=== PATIENT | female | born 1980 | race Caucasian/White ===

== ENCOUNTER 2018-03-13 17:17 | Emergency (ER) | payer MEDICAID, SELFPAY ==
[2018-03-13 17:18] VITALS: BP 146/64; PULSE 102; RESP 26; TEMP 36.2; O2SAT 99; BMI 20.1
--- NOTE | 2018-03-13 17:58 | ED.VISSUMM ---
- ER Visit Summary Date of Service: 03/13/18 Chief Complaint: Anxiety History of Present Illness: The patient is a 38 F who goes to the counseling center and sees Dr. Mario. She reports that she has a history of anxiety. She was on Xanax and Lexapro in the past. States that she has not been on these for approximately 6 months. She is unsure what her dose of Lexapro was. She reports that she is under a great deal of stress. She is buying a house and in a custody [place]. She reports that she began feeling anxious yesterday. Her symptoms consist of chest pain and diarrhea with this. She states that she has had 2 episodes of diarrhea. No blood in her stools or black tarry stools. She denies any shortness of breath or exertional chest pain. Physical Examination: Vitals: Stable. Afebrile. General: Well-nourished and well-developed. Head: Normocephalic atraumatic. Neck: Supple, no lymphadenopathy. No JVD. Nontender. Cardiovascular: Regular rate and rhythm. No murmurs. Respiratory: No respiratory distress. Clear to auscultation bilaterally. Abdominal: Soft, nontender, nondistended, normal bowel sounds. No guarding, rebound, or peritoneal signs. Back: Nontender. Extremities: Nontender, no edema. Skin: Normal color, no rash. Neurologic: Alert and oriented ?3. Cranial nerves II through XII are intact. Normal strength and sensation. Mental status exam: Patient appears their stated age. Good posture and grooming. Good eye contact. Normal rate, volume, and latency of speech. No suicidal or homicidal ideation. No auditory or visual hallucinations. Flow of thought is logical. Insight and judgment is fair. Emergency Department Course and Treatment: An [facility] report was obtained which show she has not had a prescription for Xanax since December 27. Patient was treated with a dose of Ativan p.o. Treatment Plan: Patient will be discharged prescription for 10 Ativan and Lexapro 10 mg p.o. daily. Instructed to follow-up the counseling center soon as possible. Return to the emergency department for any worsening symptoms. Disposition: To home in improved and stable condition. Impression: 1. Anxiety. This note was generated with [employer] software. It may contain incorrect words, spelling, and punctuation that were not noted in review of the chart prior to signing ED Disposition - Plan for ED Patient: Chief Complaint: Anxiety Instructions: ED Panic Attack Prescriptions: Escitalopram Oxalate [Lexapro] 10 mg PO DAILY #30 tablet Lorazepam [Ativan] 1 mg PO BID PRN #10 tablet PRN Reason: Anxiety Referrals: Counseling,Center [GROUP OF PHYSICIANS] - As soon as possible
[2018-03-13] MEDS: LORazepam 1 MG Tablet PO (18:13)
== END 2018-03-13 18:22 | disposition home or self-care (01) ==
LOC: ED 18:20
PROVIDERS: Emergency Provider Emergency Medicine; Family Provider Internal Medicine; PCP Internal Medicine
DX: F41.9 Anxiety disorder, unspecified (principal); R07.9 Chest pain, unspecified; R19.7 Diarrhea, unspecified; R51 Headache; Z72.0 Tobacco use; Z79.899 Other long term (current) drug therapy
CPT/HCPCS: 99283

== ENCOUNTER 2019-04-30 09:00 | Outpatient (RCR) | payer MEDICAID, SELFPAY ==
--- NOTE | 2019-04-30 09:06 | BH.SGPN.GN ---
Behaviors/Verbalizations/Mental Status: [Client alert and oriented, casual dress, hygiene fair. Eye contact fair to good. Motor activity appropriate. Speech within normal limits. Affect constricted, mood depressed and anxious. Thoughts linear, logical, no signs of hallucinations or delusions. Reviewed client?s symptom tracker, suicidal ideation self-reported as a 3/5 with intent as 1/5. Pt denies current plan. Pt indicates ability to maintain safety at this time, her individual therapist will follow-up after IOP group to further assess for risk.?] Client Response/Progress/Benefit: [Pt receptive of session, actively listening throughout. Pt appearing nervous, as this was her first day in IOP treatment and she was still adjusting to group environment. She declined to share with the group; however, did apper to connect with input provided by fellow participants. This was evidenced pt nodding at various points, maintaining eye contact, and indicating connecting. Appeared to benefit from structure and support of the group environment. Pt recommended continued IOP treatment to maintain safety, reduce mental health symptoms, and promote healthy copping behaviors,] Narrative Note: []
--- NOTE | 2019-04-30 10:20 | BH.SGPN.GN ---
Behaviors/Verbalizations/Mental Status: []Client alert and oriented, neatly disheveled appearance. Eye contact good. Motor activity restless. Speech within normal limits. Affect congruent-tearful, mood anxious/depressed. Thoughts linear, logical, no signs of hallucinations or delusions. Client Response/Progress/Benefit: []Client was an active participant in group discussion and activity. Client shared change came for her when she realized that her symptoms were keeping her from living the life she wanted to live. Worked with the group to identify benefits to making changes in our lives which included: improving one?s mental health, increasing confidence, breaking out of one?s comfort zone, and reducing unhealthy coping skills. Group then identified barriers to change or what keeps us from making changes which included: it is easier to not change, lack of trust, lack of resources, lack of courage to change, lack follow through, negative thinking, and fear. Client participated along with group in activity where they identified and discussed the emotions related to change. Client was attentive during psychoeducation on the change process. Benefited from increased awareness and understating of emotions, benefits, and barriers related to change. Client?s first day in IOP. Will continue IOP tx to prevent decompensation, maintain safety, and increase awareness of healthy coping skills. Narrative Note: []
--- NOTE | 2019-04-30 11:03 | BH.COMM_ITS ---
Communication Note - Communication with Client Communication Note: Met with patient to complete paperwork. No changes since pre-admission screening. Completed CSSR- screener and pt presents as low- moderate risk. Denies any suicidal thoughts in the past month. Hx of attempt 13 years ago.
--- NOTE | 2019-04-30 11:20 | BH.SGPN.GN ---
Behaviors/Verbalizations/Mental Status: []Client alert and oriented, casually dressed and groomed. Eye contact fair. Motor activity restless. Speech within normal limits. Affect constricted, mood anxious. Thoughts linear, logical, no signs of hallucinations or delusions. Client Response/Progress/Benefit: []Client engaged participant AEB pt listening attentively to others and engaging in group activity. Client participated in the activity and processed emotions and barriers associated with making change. Client appeared to connect with discussion on weighing the pros and cons associated with change and benefited from learning to do so through use of decisional balance sheet. Identified she is currently in preparation stage of change. Pt stated she recognizes she has a problem and is now seeking treatment to create a plan of how to make positive changes. Progress noted in ability to identify which stage of change she is currently in. Recommended continued IOP to decrease anxious symptoms, increase healthy coping skills and prevent decompensation. Narrative Note: []
--- NOTE | 2019-04-30 13:52 | BH.MDN ---
Multi-Disciplinary Note - Note 30-min Individual Time Started:: 12:30 Date: 04/30/19 Purpose of session/treatment goals addressed:: The purpose of this session was to gather information on client's current stressors, symptoms, and treatment goals. Another goal was to build rapport and practice grounding techniques. Eye Contact:: Good Motor Activity:: Restless Appearance:: Disheveled Speech:: Rapid Mood:: Anxious, Dysthymic Affect:: Flat - tearful Thoughts:: Racing, No evidence of hallucinations/delusions noted Staff Interventions:: Therapist used active listening and open-ended questions to explore client's current stressors, symptoms, and treatment goals. Therapist provided emotional support and hope for treatment. Therapist used strengths perspective to build rapport and help client identify personal resilience factors. Therapist taught client grounding techniques to help reduce client?s symptoms of anxiety. Client Response:: Client responded well to session, open to meeting with therapist. Client was very tearful at the beginning of session, but she became more relaxed by the end of session. Client reported her symptoms have been worsening since last Easter. Client states daily symptoms of anxiety, depression, and panic. Client shared she worries ?constantly? and is tearful most days. Client stated, I used to be fun and laughing like you guys in group. Client receptive to learning grounding techniques to help client better manage her anxiety. Client able to practice diaphragmic breathing and the 5-senses. Client was observably less anxious after practicing these skills. Client shared she has not been able to work due to her mental health symptoms and that financially she and her are struggling. Client is worried about losing their home and stated they cannot afford food right now. Client receptive to going to [facility] this week to apply for food stamps and croft assistance. Although client is anxious and tearful, client reported being at [facility] today gave her hope that she can get back to her old self. Client?s goals are to reduce the intensity of depression and anxiety and to learn how to cope with her symptoms. Risks/Concerns:: Client reports having passive suicidal ideations such as it would be easier. Denies any active suicidal ideations, plan, or intent. Client stated I would never act on them though and she is agreeable to go to the ER or tell [facility] staff if she can no longer keep herself safe. Future oriented throughout session with plans to go to [facility] tomorrow. Progress Toward Goals/Plan:: Client's first day in IOP, no progress to document at this time. Client is very tearful but recognizes there is hope. Client currently endorses severe anxiety symptoms that include panic attacks, racing thoughts, difficulty concentrating, restlessness, and constant worry. Client reports feeling depressed most days and stated her symptoms have been snowballing since last Easter. Client to continue IOP level of care to prevent decompensation, maintain safety, and learn healthy coping skills. Time Stopped:: 13:00
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
--- NOTE | 2019-05-02 13:09 | BH.DR.ITP ---
Initial Treatment Plan - Patient Information Visit Information: ADMISSION DATE: EXPECTED LOS: 4-6 weeks - Problems/Symptoms Problem #1:: Depression Symptom:: Sadness, crying, anhedonia, worthlessness, passive SI Problem #2:: Anxiety Symptom:: rumination, worry
--- NOTE | 2019-05-02 16:41 | BH.COMM ---
Communication Note - Communication with Client Communication Note: Pt reported a migraine and requested to leave IOP early. She met with psychiatrist and then was permitted to leave.
--- NOTE | 2019-05-03 11:41 | BH.COMM ---
Communication Note - Communication with Client Communication Note: Client called in to [facility] and stated that she was unable to make it today due to lack of transportation. Client reported next week transportation will never be an issue again. Client reports plan to attend [facility] on Tuesday05/07/19. Client did not present as a risk to herself or others on the phone and she was future oriented about seeing her daughter this weekend.
--- NOTE | 2019-05-07 09:46 | BH.COMM ---
Communication Note - Communication with Client Communication Note: Therapist called client as she no called/no showed for IOP today. Unable to reach client and left a message.
--- NOTE | 2019-05-09 11:37 | BH.COMM_ITS ---
Communication Note - Communication with Client Communication Note: Client no called/no showed two more times this week. T herapist met with treatment team and it was determined that client will be discharged from [facility] due to client's inability to follow the attendance policy. Therapist called client and left her a message about discharge. Therapist told client that client can return to IOP if she wants to in the future.
--- NOTE | 2019-05-09 11:37 | BH.COMM ---
Communication Note - Communication with Client Communication Note: Client no called/no showed two more times this week. Therapist met with treatment team and it was determined that client will be discharged from [facility] due to client's inability to follow the attendance policy. Therapist called client and left her a message about discharge. Therapist told client that client can return to [facility] if she wants to in the future.
--- NOTE | 2019-05-09 14:14 | BH.DS_ITS ---
Discharge Summary - Demographics Date of Admission:: 04/30/19 Discharge Date: 05/09/19 Presenting Problems at Admission:: Client is a 39-year-old female with a history of depression, anxiety, ADD and substance abuse disorders who was referred to the [facility] program by the crisis center about 1 week ago. At admission, client had worsening symptoms and was unable to function for the past several weeks. Client?s symptoms were worsening in the past 2 weeks and this led to her losing her current job several weeks ago. Client was been unable to function at work or at home. Client had passive thoughts that she would not care if she . Client endorsed severe anhedonia, no motivation, no energy, and difficulty concentrating. Discharge Diagnoses:: Major depressive disorder recurrent, severe without psychosis F33.2; generalized anxiety disorder; PTSD Reason for Discharge:: Therapist met with treatment team and it was determined that client will be discharged from [facility] due to client's inability to follow the attendance policy. - Treatment Progress During Treatment & Response: No progress due to client's lack of attendance. Client attended [facility] twice from her admission date to discharge and left early on the second day due to a migraine. Due to limited attendance, client was unable to establish and work on treatment goals. Issues Still to be Addressed:: Client unable to create treatment goals due to early discharge. Client can benefit from learning healthy coping skills, increasing social support, and practicing self-care. Client can benefit from learning about her mental health and how to cope with anxiety and depression. Also could benefit from ongoing counseling to prevent decompensation of symptoms. Discharge Recommendations/Instructions:: Due to unexpected discharge and client not returning this therapist's calls, resources were provided via voicemail for outpatient mental health services. Therapist provided information for [facility] in [place]. Discharge Handout: Complete Discharge Handout with client on aftercare options and continuity of care.
== END 2019-05-26 23:59 ==
LOC: BHIOP 09:00
PROVIDERS: Family Provider Internal Medicine; PCP Internal Medicine; Referring Provider Psychiatry & Neurology Psychiatry; Visit Provider Psychiatry & Neurology Psychiatry
DX: F33.2 Major depressive disorder, recurrent severe without psychotic features (principal); F41.1 Generalized anxiety disorder; F43.10 Post-traumatic stress disorder, unspecified; Z79.899 Other long term (current) drug therapy; F17.210 Nicotine dependence, cigarettes, uncomplicated; F12.90 Cannabis use, unspecified, uncomplicated
CPT/HCPCS: 90792; H2020

== ENCOUNTER 2019-08-07 19:20 | Emergency (ER) | payer MEDICAID, SELFPAY ==
[2019-08-07 19:22] VITALS: BP 112/80; PULSE 89; RESP 17; TEMP 36.8; O2SAT 98; BMI 23.2
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
[2019-08-07] MEDS: LORazepam 1 MG Tablet PO (20:47)
--- NOTE | 2019-08-07 20:53 | ED.VIS.PSYCH ---
History of Present Illness Chief Complaint: Anxiety Narrative: Patient presenting for evaluation secondary to feelings of anxiety. Patient has a underlying history of anxiety and depression. She had a past history of substance abuse, has been clean for quite some time. Patient reports that about 3 weeks ago she got into an appointment at the counseling center and was started on the Lexapro. She initially started to feel better, but then about 2 weeks ago she started to develop feelings of racing thoughts and paranoia. Patient states that this is been getting progressively worse, now is to the point where she is having difficulty with sleeping, has progressively worsening racing thoughts and feeling that everybody is talking about her. Patient denies being suicidal or homicidal. She denies hallucinating. She has insight into this, she called the counseling center they recommended that she discontinue her Lexapro and present to the emergency department for further evaluation. Past Medical History - Allergies and Home Meds Allergies/Adverse Reactions: Allergies escitalopram [From Lexapro] Allergy (Verified 08/07/19 19:21) Other lamotrigine [From Lamictal] Allergy (Verified 03/13/18 17:19) Hives nitrofurantoin [From Macrobid] Allergy (Verified 03/13/18 17:19) Unknown nitrofurantoin macrocrystalline [From Macrobid] Allergy (Verified 03/13/18 17:19) Unknown codeine Adverse Reaction (Verified 03/13/18 17:19) Nausea Primary Care Physician: Tamika Mario MD [Primary Care Provider] - Past Medical History: - - Anxiety Surgical History: tonsillectomy, - - Left ovary removal secondary to cyst Smoking Status: Current every day smoker - Family History Maternal Family History: Reports: Diabetes, Hypertension Paternal Family History: Reports: Hypertension Review of Systems All systems negative except as indicated General: Denies: Chills, Fever, Sweats Eyes: Denies: Visual changes - bilaterally, Diplopia ENT: Denies: Rhinorrhea, Sore throat Cardiovascular: Denies: Chest pain, Palpitations Respiratory: Denies: Dyspnea, Cough, Dyspnea on exertion Gastrointestinal: Denies: Abdominal pain, Nausea, Vomiting, Diarrhea, Melena, Hematochezia Genitourinary: Denies: Dysuria, Hematuria, Frequency Musculoskeletal: Denies: Back pain, Extremity Pain Skin: Denies: Rash, Wounds Neurological: Denies: Headache, Weakness, Numbness Psych: Reports: Anxiety. Denies: Suicidal thoughts, Suicidal ideations Physical Exam Vital Signs/Narrative: Vital Signs Temp Pulse Resp BP Pulse Ox 08/07/19 19:22 98.2 F 89 17 112/80 98 Inital Vital Signs reviewed: Yes General: Well nourished, Well developed Head: Normocephalic, Atraumatic Eyes: Perrl, EOMI ENT: Moist mucous membranes, No rhinorrhea, - - Thyroid normal to palpation Neck: Supple, Nontender Cardiovascular: Regular rate, Regular rhythm, No murmurs Respiratory: No distress, CTA bilaterally, Chest nontender Abdomen: Soft, Nontender, Nondistended, Normal bowel sounds Back: Nontender, Normal Inspection Extremities: Nontender, No Edema Skin: Normal color, No rash Neurological: Alert, Oriented x3, Cranial nerves II-XII grossly intact, Normal Strength, Normal Sensation Psych: No suicidal or homicidal ideation, Good Insight, Good Judgement, Pressured Speech, Flight of Ideas Diagnostic/Tx/Re-eval - EKG Initial EKG Interpretation: - - Sinus rhythm of [address] segments normal T waves no evidence of acute ischemia or arrhythmia Patient presented secondary to racing thoughts and feelings of paranoia. Physical exam of the patient seem to show the patient to be hypomanic. She does have forward thoughts, good insight, good judgment but seems somewhat hyper stimulated. She was given p.o. Ativan. CBC chemistry unremarkable. TSH mildly elevated. Patient's toxicology screen was positive for benzodiazepines and cannabinoids which she admitted to. Repeat evaluation of the patient at 2200 shows significant improvement. At this point I do not feel that the patient requires hospitalization. She signed a safety plan. Patient will continue to follow-up with the counseling center, I believe that her symptoms likely are secondary to side effect from her Lexapro. She will discontinue this medication. She understands signs and symptoms which to return. ED Disposition - Plan for ED Patient: Disposition: Home or Assisted Living Diagnosis: Anxiety Instructions: Anxiety Reaction, DRUG REACTION, Other Referrals: Tamika Mario MD [Primary Care Provider] - Additional Instructions: Follow-up with counseling center as instructed
[2019-08-07 21:06] LABS: Absolute Lymphocyte Count 4.98 X10^3/uL (0.83-4.51); Absolute Neutrophil Count 9.7 X10^3/uL (2.0-7.7); Basophil# 0.11 X10^3/uL; Basophil% 0.7 % (0-1); Eosinophil# 0.25 X10^3/uL; Eosinophils% 1.6 % (0-5); Hematocrit 42.6 % (37-47); Hemoglobin 14.6 g/dL (12.0-15.0); Lymphocyte # 4.98 X10^3/ul (4.0); Mean Corp Hgb Conc 34.3 g/dL (32-36); Mean Corpuscular Hgb 31.8 pg (27.0-32.0); Mean Corpuscular Volume 92.8 fL (81-99); Mean Platelet Vol. 9.7 fl (6.2-12.0); Monocyte# 0.98 X10^3/uL; Monocyte% 6.1 % (0-10); NRBC Flagged by Analyzer 0 % (0-5); Neutrophil # 9.72 X10^3/uL (2.7-7.7); Neutrophil % 60.4 % (47-70); Platelet Count 291 K/mm3 (150-450); RBC Distribution Width CV 12.2 % (11.6-14.6); RBC Distribution Width SD 41.8 fl (35.1-43.9); Red Blood Count 4.59 M/mm3 (4.2-5.4); White Blood Count 16.1 K/mm3 (4.4-11.0)
[2019-08-07 21:28] LABS: Internal QC Validated? YES +Cl - CLEAR BKGD; Pregnancy, Serum, hCG Quali. NEGATIVE Negative
[2019-08-07 21:34] LABS: Anion Gap 5 (5-15); BUN 5 mg/dL (7-18); Calcium,Total 8.8 mg/dL (8.5-10.1); Chloride 107 mmol/L (98-107); Creatinine, Serum 0.84 mg/dL (0.55-1.02); EST Glomerular Filtration Rate 81 mL/min (>60); Est Glom Filt Rate - Afr Amer 98 mL/min (>60); Estimated Creatinine Clearance 82.51 ml/min; Glucose 100 mg/dL (74-106); Potassium 3.7 mmol/L (3.5-5.1); Sodium Level 139 mmol/L (136-145)
[2019-08-07 21:36] LABS: Amphetamine Urine VISTA NEGATIVE (<1000 ng/mL); Barbiturate Urine VISTA NEGATIVE (< 200 ng/mL); Benzodiazepine Urine VISTA POSITIVE (< 200 ng/mL); Cocaine Urine VISTA NEGATIVE (< 300 ng/mL); Ecstacy Urine VISTA NEGATIVE (< 500 ng/mL); Methadone Urine VISTA NEGATIVE (< 300 ng/mL); PCP Urine VISTA NEGATIVE (< 25 ng/mL); THC Urine VISTA POSITIVE (< 50 ng/mL); Vista UDS pH Range 7
[2019-08-07 22:11] LABS: Alcohol, Blood (Medical)-Serum < 3.0 mg/dL
--- NOTE | 2019-08-07 22:16 | CM.ED ---
Addendum entered by Amee Gomez 08/07/19 22:30: Reviewed and approved PSYCHIATRIC SECRETARY student documentation. Milan Gomez PSYCHIATRIC SECRETARY, BLOCK CUBER Original Note: Social Work Collaborating with Dr. Irene. Plan for patient to discharge back to home with crisis follow-up appointment. Met with patient in room. Broached the topic of discharge to home with crisis follow-up appointment. Patient agreeable to follow up with Crisis. Telephone call to Crisis, Karen. Crisis set up appointment for tomorrow, August 08 at 9:00 am with [facility]. Met with patient in room. Patient agreeable to time and date of Crisis appointment. This PSYCHIATRIC SECRETARY student provided patient with Crisis appointment reminder. Broached topic of patient establishing counseling services. Patient voicing to value counseling services and to plan to establish counseling services in the future. Provided patient with counseling services within the area. Completing safety plan with patient. Patient counseled on legal means. Patient provided with written information on Crisis Hotline options if need would arise. Offered to go over safety plan with support person. Patient declining, stating plan to inform support system with the information on safety plan. Provided patient with original safety plan. Copy of safety plan placed on patient's chart. Plan: Discharge to home with Crisis follow-up. Vitaly Wilde, PSYCHIATRIC SECRETARY student
[2019-08-07 22:21] VITALS: PULSE 77; RESP 16; O2SAT 98
== END 2019-08-07 22:22 | disposition home or self-care (01) ==
PROVIDERS: Emergency Provider Emergency Medicine; PCP Internal Medicine
DX: F41.9 Anxiety disorder, unspecified (principal); F17.200 Nicotine dependence, unspecified, uncomplicated; F32.9 Major depressive disorder, single episode, unspecified; Z79.899 Other long term (current) drug therapy
CPT/HCPCS: 80048; 80307; 80320; 84443; 84703; 85025; 99284; G0480

== ENCOUNTER 2019-10-01 16:14 | Emergency (ER) | payer MEDICAID, SELFPAY ==
[2019-10-01 16:15] VITALS: BP 117/74; PULSE 106; RESP 18; TEMP 36.7; O2SAT 98; BMI 24.1
--- NOTE | 2019-10-01 16:33 | ED.DCSUM_ITS ---
History of Present Illness Chief Complaint: Abd Pain Informant: Patient - Abdominal Pain/Flank Pain Onset: Days - 3 Context: Sudden Onset Timing: Continuous Quality: Aching Location: - - suprapubic only Current Severity: Moderate Maximum Severity: Moderate Worsened by: - - intercourse Relieved by: Nothing - tried tylenol/ibuprofen - Nausea/Vomiting/Emesis GI Symptom: Nausea - when my pain is worse which is not uncommon for her w/ pain for any reason. Negative for: Vomiting - Diarrhea/Melena/Hematochezia GI Symptom: - - pain does not improve after BM. Negative for: Diarrhea, Melena, Hematochezia Associated Symptoms: Frequency. Negative for: Dysuria, Hematuria, Urgency Narrative: Patient states she was sent here by [facility] urgent care after being seen there just earlier. She has been having suprapubic discomfort that she did not notice until she had intercourse with her , and noticed the pain there and pain in her vaginal wall with intercourse. She has had no noticeable discharge, but she had a pelvic exam at [facility] just an hour ago that showed an abnormal discharge that they swabbed and sent for wet prep with no results available according to the patient. They also did a urinalysis that was normal according to the patient. They told her they advised her to go him to the emergency room. Patient states she has had bacterial vaginosis before and had symptoms like this except for the suprapubic discomfort is worse now. She is monogamous, , has no history of an STD does not suspect one. She denies any fevers or respiratory symptoms or recent travel. Her suprapubic discomfort radiates to her low back a little. Recent Illness/Hospitalization: No - Past Medical History (1) Depression Status: Chronic Past Medical History - Allergies and Home Meds Allergies/Adverse Reactions: Allergies escitalopram [From Lexapro] Allergy (Verified 10/01/19 16:15) Other lamotrigine [From Lamictal] Allergy (Verified 10/01/19 16:15) Hives nitrofurantoin [From Macrobid] Allergy (Verified 10/01/19 16:15) Unknown nitrofurantoin macrocrystalline [From Macrobid] Allergy (Verified 10/01/19 16:15) Unknown codeine Adverse Reaction (Verified 10/01/19 16:15) Nausea Primary Care Physician: Tamika Mario MD [Primary Care Provider] - Surgical History: tonsillectomy, - - Left ovary removal secondary to cyst Lives: Spouse/ Significant Other Smoking Status: Current every day smoker - Family History Maternal Family History: Reports: Diabetes, Hypertension Paternal Family History: Reports: Hypertension Review of Systems General: Denies: Chills, Fever, Sweats Eyes: Denies: Visual changes - bilaterally, Diplopia ENT: Denies: Rhinorrhea, Sore throat Cardiovascular: Denies: Chest pain, Palpitations Respiratory: Denies: Dyspnea, Cough, Dyspnea on exertion Gastrointestinal: Reports: Abdominal pain. Denies: Nausea, Vomiting, Diarrhea, Melena, Hematochezia Genitourinary: Reports: - - dyspareunia. no vaginal discharge or bleeding.. Denies: Dysuria, Hematuria, Frequency Musculoskeletal: Reports: Back pain. Denies: Extremity Pain Skin: Denies: Rash, Wounds Neurological: Denies: Headache, Weakness, Numbness Physical Exam Vital Signs/Narrative: Vital Signs Temp Pulse Resp BP Pulse Ox 10/01/19 16:15 98.1 F 106 H 18 117/74 98 Inital Vital Signs reviewed: Yes General: Well nourished, Well developed, No Acute Distress Head: Normocephalic, Atraumatic Eyes: Perrl, EOMI ENT: Moist mucous membranes, No rhinorrhea Neck: Supple, Nontender Cardiovascular: Regular rate, Regular rhythm, No murmurs. Negative for: Tachycardia Respiratory: No distress, CTA bilaterally, Chest nontender Abdomen: Soft, Nondistended, Normal bowel sounds, Tender - suprapubic only, mild. Negative for: Guarding, Rebound tenderness Back: Nontender, Normal Inspection. Negative for: CVA tenderness Extremities: Nontender, No edema. Negative for: Calf Tenderness Skin: Normal color, No rash, No Trauma Neurological: Alert, Oriented x3, Cranial nerves II-XII grossly intact, Normal Strength, Normal Sensation, Normal Gait Psychological: Normal affect, Normal Mood Diagnostic/Tx/Re-eval - Medical Decision Making I think the patient probably has bacterial vaginosis. I think it would be reasonable to treat her empirically and have her follow-up or return to the ER if she does not get better for reevaluation. I also talked about the possibility of other issues such as diverticulosis/diverticulitis/colitis, and the need for blood work/CT to evaluate and/or rule out these possibilities. She has had a screening colonoscopy before and they did not see any diverticulosis. With shared decision-making, she appreciates this offer but declines repeat pelvic exam and prefers to undergo empiric treatment for BV and states she can always return if she gets worse. I think this is completely reasonable, and she was given appropriate discharge instructions as well as a prescription for 1 week of Flagyl. ED Disposition - Plan for ED Patient: Disposition: Home or Assisted Living Diagnosis: Vaginitis, Suprapubic abdominal pain Instructions: ED Vaginosis Bacterial Prescriptions: Metronidazole [Flagyl] 500 mg PO BID 7 Days #14 tab Transmission Status: Pending to [id number] Referrals: Tamika Mario MD [Primary Care Provider] - 3-5 Days if not improving (or may certainly return to the ER)
== END 2019-10-01 16:42 | disposition home or self-care (01) ==
LOC: ED 16:41
PROVIDERS: Emergency Provider Emergency Medicine; PCP Internal Medicine
DX: N76.0 Acute vaginitis (principal); F32.9 Major depressive disorder, single episode, unspecified; F17.200 Nicotine dependence, unspecified, uncomplicated; Z79.899 Other long term (current) drug therapy; Z88.8 Allergy status to other drugs, medicaments and biological substances; Z88.5 Allergy status to narcotic agent; Z88.1 Allergy status to other antibiotic agents
CPT/HCPCS: 99282

== ENCOUNTER 2019-10-11 21:36 | Emergency (ER) | payer MEDICAID, SELFPAY ==
[2019-10-11 21:37] VITALS: BP 137/69; PULSE 77; RESP 18; TEMP 36.5; O2SAT 99; BMI 24.1
--- NOTE | 2019-10-11 22:00 | CT_ITS ---
STUDY: CT ABDOMEN AND PELVIS WITHOUT CONTRAST REASON FOR EXAM: Female, 39 years old. GROIN PAIN TONIGHT, DX WITH BACTERIAL VAGINOSIS 1 WEEK AGO -- HX: HEP C, KIDNEY STONES, LT OOPHORECTOMY RADIATION DOSAGE (If Supplied By Facility): CTDIvol = ( 6.20 ) mGy, DLP = ( 306.57 ) mGycm TECHNIQUE: Transaxial images were obtained from the dome of the diaphragm to the symphysis pubis without oral contrast, and without intravenous contrast. Sagittal and coronal images were reconstructed. Individualized dose optimization techniques were used for this CT. COMPARISON: October 31, 2011 FINDINGS: The visualized lung bases are unremarkable. The visualized portions of the heart are within normal limits. There is hepatomegaly with diffuse hepatic enlargement. The gallbladder is contracted. Normal spleen. Normal pancreas. Normal bilateral adrenal glands. Normal right kidney. Normal left kidney. Normal visualized stomach. Normal small intestine. Normal colon. The appendix is visualized and appears normal. Normal abdominal aorta. Normal inferior vena cava. Normal retroperitoneum. Normal urinary bladder. Normal visualized uterus. There is ligation clip. There is 4.0 cm right adnexal cyst. Normal abdominal wall. Normal osseous structures. CT/Abdomen/Pelvis without Cont IMPRESSION: Right adnexal cyst. Hepatomegaly. Contracted gallbladder. No biliary dilatation. Electronically Signed: Antonio Dukes MD at 22:58 EDT , Service support ,
--- NOTE | 2019-10-11 22:06 | ED.DCSUM_ITS ---
- ER Visit Summary Date of Service: 10/11/19 Chief Complaint: [Pelvic pain] History of Present Illness: The patient is a 39 F [presents the emergency department with lower pelvic pain that she said for about a week. Patient was seen in the emergency department about 5 days ago and bacterial vaginosis and w as started on Flagyl. Patient states that she started feeling better about 2 days after taking the antibiotic. Patient started having more discomfort this evening to the lower pelvic region. She does describe urgency to urinate. She denies frequency. She does have some dysuria. Patient has history of anxiety and depression and has had history of kidney stones. She denies any abnormal vaginal discharge.] Physical Examination: [HEENT-PERRLA, EOMI. Cranial nerves II through XII grossly intact. TMs clear. Mucous membranes moist. No adenopathy. Cardiovascular-regular rate and rhythm without murmur or ectopy Lungs-clear to auscultation, chest wall stable without crepitus or subcu emphysema Abdomen-normoactive bowel sounds, soft, nontender, no rebound or rigidity, no peritoneal signs. Patient does have tenderness palpation over the pelvic region diffusely. No abnormal masses palpated. No rebound, rigidity, or peritoneal signs noted. Extremities-intact ?4, normal range of motion, normal pulses, atraumatic] Test Results: [CBC with differential obtained showed a white count of 13.4, hemoglobin 13.8, hematocrit 40, placed 268. Chemistries unremarkable. Urinalysis normal. A hCG was negative. CT scan of the abdomen pelvis showed right adnexal cyst otherwise nothing acute.] Emergency Department Course and Treatment: [Patient received Toradol on arrival. She continued to complain of pain. She was given morphine and Zofran p.o. etiology of patient's pain unclear at this time. Patient is still on the Flagyl and she is advised to finish that. I do not suspect her exam and history consistent with torsion. Patient has had prior left oophorectomy for ovarian cysts. Patient also has had a uterine ablation and cannot have children. Recommended follow-up with her SOCIAL SCIENCES DEPARTMENT CHAIR.] Treatment Plan: [Follow up with SOCIAL SCIENCES DEPARTMENT CHAIR within next 3 to 5 days. Patient given a prescription for Miller for pain.] Disposition: [Discharged home in stable condition.] Impression: [Pelvic pain-etiology uncertain] This note was generated with Dragon dictation software. It may contain incorrect words, spelling, and punctuation that were not noted in review of the chart prior to signing ED Disposition - Plan for ED Patient: Referrals: Tamika Mario MD [Primary Care Provider] -
[2019-10-11] MEDS: 0.9% Normal Saline 1,000 ML 150 ML IV (22:19)
[2019-10-11] MEDS: Ketorolac 30 MG/ML Syringe IV (22:26)
[2019-10-11 22:34] LABS: Absolute Lymphocyte Count 4.84 X10^3/uL (0.83-4.51); Absolute Neutrophil Count 7.5 X10^3/uL (2.0-7.7); Basophil# 0.08 X10^3/uL; Basophil% 0.6 % (0-1); Eosinophil# 0.17 X10^3/uL; Eosinophils% 1.3 % (0-5); Hematocrit 40.3 % (37-47); Hemoglobin 13.8 g/dL (12.0-15.0); Lymphocyte # 4.84 X10^3/ul (4.0); Mean Corp Hgb Conc 34.2 g/dL (32-36); Mean Corpuscular Hgb 31.4 pg (27.0-32.0); Mean Corpuscular Volume 91.6 fL (81-99); Mean Platelet Vol. 9.8 fl (6.2-12.0); Monocyte# 0.79 X10^3/uL; Monocyte% 5.9 % (0-10); NRBC Flagged by Analyzer 0 % (0-5); Neutrophil # 7.49 X10^3/uL (2.7-7.7); Neutrophil % 55.8 % (47-70); Platelet Count 268 K/mm3 (150-450); RBC Distribution Width CV 11.9 % (11.6-14.6); RBC Distribution Width SD 40.2 fl (35.1-43.9); White Blood Count 13.4 K/mm3 (4.4-11.0)
[2019-10-11 22:35] LABS: Bacteria 0 SEEN /hpf (None Seen); Color, Urine Yellow (Yellow); Glucose, Dipstick Normal (Normal); Ketone-Dipstick Negative (Negative); Leukocyte Esterase-Dipstick Negative /ul (Negative); Mucous, Urine 0 SEEN /hpf (<or=2+); Nitrite-Dipstick Negative (Negative); Occult Blood-Urine Negative /ul (Negative); Protein-Dipstick Negative (Negative); Red Blood Cells-Urine 0 SEEN /hpf (0-5); Urine Bilirubin Dipstick Negative (Negative); Urine Clarity Clear (Clear); Urine Urobilinogen Normal (Normal); Urine pH 6.5 (5.0 - 8.0); White Blood Cells 0 SEEN /hpf (0-5)
[2019-10-11 22:36] LABS: Internal QC Validated? YES +Cl - CLEAR BKGD; Pregnancy, Urine Negative Negative
[2019-10-11 22:38] LABS: Anion Gap 7 (5-15); BUN 7 mg/dL (7-18); BUN/Creat Ratio 8.5 RATIO (10-20); Calcium,Total 8.7 mg/dL (8.5-10.1); Chloride 105 mmol/L (98-107); Creatinine, Serum 0.83 mg/dL (0.55-1.02); EST Glomerular Filtration Rate 82 mL/min (>60); Est Glom Filt Rate - Afr Amer 100 mL/min (>60); Estimated Creatinine Clearance 83.51 ml/min; Glucose 94 mg/dL (74-106); Potassium 3.7 mmol/L (3.5-5.1); Sodium Level 138 mmol/L (136-145)
[2019-10-11 22:40] LABS: Squamous Epithelial Cells - UA 0-5 SEEN /hpf (5-10)
--- NOTE | 2019-10-11 23:10 | DCINST.ED_ITS ---
ED Disposition - Plan for ED Patient: Instructions: ED Abdominal Pain Unkn Cause Fem, Vaginal Infection: Bacterial Vaginosis, ED Pelvic Pain [facility]O Prescriptions: Hydrocodone Bitart/Apap 5-325 [[place] 5MG-325MG] 1 tab PO Q4H PRN PRN 2 Days #10 tab PRN Reason: Pain Prescription Printed Referrals: Tamika Mario MD [Primary Care Provider] - Additional Instructions: see your NETWORK SYSTEMS ANALYST in 3-5 days
[2019-10-11] MEDS: Morphine 4 MG/ML Syringe IV (23:55)
[2019-10-11] MEDS: Ondansetron 4 MG/2 ML Vial IV (23:55)
[2019-10-12 00:01] VITALS: BP 124/74; PULSE 78; RESP 16; O2SAT 97
== END 2019-10-12 00:04 | disposition home or self-care (01) ==
LOC: ED 22:06
PROVIDERS: Emergency Provider Emergency Medicine; PCP Internal Medicine
DX: R10.2 Pelvic and perineal pain (principal); N83.201 Unspecified ovarian cyst, right side; R30.0 Dysuria; F32.9 Major depressive disorder, single episode, unspecified; F41.9 Anxiety disorder, unspecified; Z72.0 Tobacco use; Z79.899 Other long term (current) drug therapy; Z87.442 Personal history of urinary calculi
CPT/HCPCS: 74176; 80048; 81001; 81025; 85025; 96361; 96374; 96375; 99283; J7030; A4216; J2405

== ENCOUNTER 2019-12-10 20:52 | Emergency (ER) | payer MEDICAID, SELFPAY ==
[2019-12-10 20:53] VITALS: BP 135/95; PULSE 93; RESP 17; TEMP 36.3; O2SAT 98; BMI 23.2
--- NOTE | 2019-12-10 21:52 | ED.RN ---
Addendum entered by Myrna Costa 12/10/19 23:22: RN then called pt who said she would return in 20 minutes. Original Note: entered room for pt to give urine sample - pt not in room.
--- NOTE | 2019-12-10 23:20 | ED.RN ---
pt has not returned to ED. will notify
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
--- OUTSIDE RECORDS SUMMARY | 2020-04-13 13:55 | XMS RPT_ITS | CCD ---
:1980 External Reference #:[id number] Author Organization [facility] Care Team Providers Name Role Phone Edison Cedillo Unavailable Unavailable PROVIDER, UNKNOWN Unavailable Unavailable Maile Escobar Unavailable Unavailable GEORGETTE LINDER Attending Unavailable MICHAEL LINDER Attending Unavailable Allergies Reported Allergen Reaction(s) Severity Date of Onset Location [id number] Unknown 01-19-2007 - [facility] Other VOGT Translations: [ [place] R epository [id number] VOGT] Codeine Translations: [ Unknown 02-03-2007 - [facility] Other CODEINE] [place] Reposito ry lamoTRIgine Translations: [ Unknown 01-03-2017 - [facility] Other LAMOTRIGINE] [place] Reposito ry Nitrofurantoin Unknown 12-24-2014 [facility] [place] Other Translations: [ [place] Repos itory NITROFURANTOIN MACROCRYSTAL] PROMETHAZINE-PHENYLEPHRINE Unknown 04-27-2010 [facility] Other Translations: [ [place] Repos itory PROMETHAZINE-PHENYLEPHRINE] Problems Active Problems Category Problem Name Status Date Location Allergic reactions Allergy status to other Active 12-15-2017 - [facility], medicaments and Syste m (50312) biological substances status Other female genital Other specified Active 12-15-2017 [facility] disorders noninflammatory System (0000 0) disorders of vagina Other gastrointestinal Constipation, Active 10-19-2018 - [place] [facility] ([id number]) Other infections Personal history of Active 12-15-2017 - [facility] other infectious and System (36866) parasitic diseases Substance-related Nicotine dependence, Active 12-15-2017 - [facility] disorders unspecified, System (51962) uncomplicated Unclassified 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, unilateral System ( 94916) Past or Other Problems Category Problem Name Status Date Location Abdominal pain Generalized abdominal Completed 07-02-2018 - [place] [facility] pain [facility] ([id number]) Headache; including Headache Completed 07-02-2018 - [place] migraine [facility] ([id number]) Other connective Rhabdomyolysis Completed 07-02-2018 - [place] [facility] tissue disease [facility] Cent[facility] ([id number]) Viral infection Viral infection, Completed 07-02-2018 - [place] unspecified [facility] ([id number]) Results Result Name Value Range Unit Interpretation Flag Date Location progress on 2019-12 PROGRESS HNO ID: [id number] Normal 01-10-2020 [facility] Author: Norma (Death Clearance Coordinator) Hubert Latif ([id number]) Service: ? Author Type: Nurse Specialist Type: Progress Notes Filed: 01/10/2020 7:21 AM Note Text: DISTANCE HEALTH VISIT This Team Access Model visit is a virtual encounter. It requ ired patient-provider interaction for the medical decision making as documented below. Pat Knight is a 39 year old female seen for routine f ollow up visit. Presents today stating she needs letter noting that she is u nable to work due to mental health concerns. She has been following at [facility]. Have recieved outside records and reviewed.(see scan jimmie documents).Reports she was advised by counseling center wenceslao dubon to request a letter from her primary care provider. HISTORY REVIEWED (electronic chart updated): - medical history - medications - allergies REVIEW OF SYSTEMS: GENERAL: no recent change in weight, no fever, activity leve l is normal PHYSICAL EXAMINATION: VIDEO EXAM: (if done, performed via video enabled technology ) GENERAL: alert and appropriate, in no distress and well-hydr ated, well nourished SKIN: no rash noted RESPIRATORY: breathing non-labored and no grunting/flaring/r etractions CHEST: equal chest rise with normal respiratory effort NEUROLOGIC: no obvious deficit ASSESSMENT: (F41.9) Anxiety (primary encounter diagnosis) (F32.9) Depression, unspecified depression type PLAN: ASSESSMENT/PLAN: 1. Anxiety - ICD9: 300.00, ICD10: F41.9 (primary diagnosis) 2. Depression, unspecified depression type - ICD9: 311, ICD1 0: F32.9 Continue treatment unchanged. Continue to follow up with counseling center. Continue to monitor. Letter provided. Norma Gaspar APRN.[facility] There are no Patient Instructions on file for this visit. Norma Gaspar APRN.RICHARD cnpn on 2020-01-07 CNPN Telephone (INTMWS) Normal 01-07-2020 [facility] PAT KNIGHT ([id number]) 1980 [facility] Date Time Provider Department ([id number]) 01/07/20 MAILE MARIO INTMWS During your visit today, we recorded the following informati on about you: Sharon Sutherland RN 01/07/2020 12:31 PM Signed Patient reports she needs a letter for child sup port stating she is unable to work. Reports she has been seeing a doctor and counselor at the counseling center for 8 mths. Reports she is unable to work d/t bipolar , depression, anxiety, and PTSD. Reports she is curren tly taking latuda, effexor, trazedone, and buspar. She is currently waiting on a disability claim. She needs a letter from provider stating she is unab le to work to avoid child support. The counseling center advised her to call pcp for letter. [place] led VV for tomorrow. Needs letter by . Norma Gaspar APRN.CNS 01/07/2020 1:05 PM Addendum PCP is Maile Mario MD Is her mental health provider not writing for disability? We should check with counseling center to verify Discussed with PCP. Lucia Barragan MA 01/07/2020 1:13 PM Signed Called counseling center LM on for Medical Records to fax documentation pertaining to this pt and her disability as she's requesting letter from PCP's office. Gave F# and also notified them that pt has appt s[place] r[place]. Lucia Cabrera LPN 01/10/2020 12:45 PM Signed Patient had visit. Letter provided. See [employer] message Allergies As of Date: 01/07/2020 Noted Allergy Reaction PAMPRIN MULTI-SYMPTOM (ACETAMINOP*01/19/2007 2 - Rash 9 - Itching 12 - Shortness of Breath Comments: Severe itching all over body, slight rash, hyper v entilating, lips swelled badly CODEINE 02/03/2007 4 - Hives 9 - Itching LAMOTRIGINE 01/03/2017 4 - Hives NITROFURANTOIN MACROCRYSTAL 12/24/2014 16 - Unknown PROMETHAZINE-PHENYLEPHRINE 04/27/2010 5 - Intolerance Comments: Make her feel like passing out Date Reviewed: 12/05/2019 Reviewed by: Jaylyn Diaz Ma - Fully Assessed Reason for Visit: Letter [Other] Prescriptions as of 01/07/2020 Sig: VENLAFAXINE ER 150 MG CAPSULE* Take 1 capsule by mouth twice * TRAZODONE 100 MG TABLET Take 100 mg by mouth. BUSPIRONE 10 MG TABLET Take 11 tablets by mouth thre* LURASIDONE 20 MG TABLET Take by mouth. LIDOCAINE HCL 2 % MUCOSAL JOHAN* Take 5 mL by mouth as needed. Patient not taking: Reported on 04/02/2019 IBUPROFEN 400 MG TABLET Take 1 tablet by mouth every * Patient not taking: Reported on 04/02/2019 ONDANSETRON 4 MG DISINTEGRATI* Take 1 tablet by mouth every * Patient not taking: Reported on 04/02/2019 TRAZODONE 50 MG TABLET Take 2 tablets by mouth daily* Patient not taking: Reported on 04/02/2019 SOFOSBUVIR 400 MG-VELPATASVIR* Take 1 tablet by mouth daily * Patient not taking: Reported on 07/14/2018 XANAX ORAL Take 0.5 mg by mouth as neede* Problem List As Of Date 01/07/2020 Noted Resolved Irritable bowel syndrome [K58.9] 10/27/2012 Nonallopathic lesion of lower extremities, not *11/23/2005 0 10/27/2012 ALLERGIC RHINITIS NOS [J30.9] 04/05/2006 Migraine, unspecified, with intractable migrain* 10/27/2012 Diarrhea [R19.7] Internal derangement of knee [M23.90] 07/28/2009 10/27/2012 Chronic pain [G89.29] 05/29/2010 More... Depression [F32.9] Anxiety [F41.9] ADD (attention deficit hyperactivity disorder, *09/19/2013 Hypertension [I10] 09/11/2014 Congestive heart failure (HCC) [I50.9] 09/11/2014 Hepatitis C virus infection without hepatic com*06/15/2016 Chronic hepatitis C without hepatic coma (HCC) *06/15/2016 1 08/16/2015 Insomnia [G47.00] 01/26/2017 Encounter Status:Closed by RE CABRERA LPN on 01/10/20 progress on 2019-11 PROGRESS HNO ID: [id number] Normal 12-05-2019 [place] Author: Louis Brewer) [facility] Service: ? [place] Author Type: Nurse Practitioner ([id number]) Type: Progress Notes Filed: 12/05/2019 11:18 AM Note Text: Subjective HPI HPI Pat Knight is a 39 year old female who presents t [facility] for CC of left ear pain/headache possibly sinus. This started 4 days a go. Has tried otc medication with mild relief. Risk factors hx of ea r infections, tubes. Smoker. Denies possibility of being pregn ant. .Patient presents with: Ear Problem: LEFT ear pain x 1 day with ALEJANDRA x 4 days PAST MEDICAL HISTORY Diagnosis Date - Abdominal pain, unspecified site - Abnormal glandular Papanicolaou smear of cervix 04/08/2006 Abn. Pap smear (cervix) - Allergic rhinitis, cause unspecified 04/05/2006 - Anxiety - Congestive heart failure (HCC) - Depression - Diarrhea - Hypertension - Irritable bowel syndrome - Mental disorders complicating , childbirth, or th e puerperium DEPRESSION - Migraine, unspecified, with intractable migraine, so state d, without mention of status migrainosus - Other and unspecified ovarian cyst - PMH - PAST MEDICAL HISTORY OF Narcotic dependence requiring rehab in 2006 - Temporomandibular joint disorders, unspecified PAST SURGICAL HISTORY Procedure Laterality Date - COLPOSCOPY (VAGINOSCOPY) Colposcopy - DANDC, DIAG AND/OR THERAPEUTIC 2000 Dilation AND curettage,TAB - EGD W/O OR W/BRUSH/WASH 11/01/11 EGD [facility] inpt H-pylori negative - INCISION EARDRUM,ASPIR,GEN ANESTH 1994 Myringotomy/tubes - LIGATE FALLOPIAN TUBE 04/09/2006 Tubal ligation - REMOVAL ADENOIDS,PRIMARY,<12 Y/O Adenoidectomy - REMOVAL OF OVARY(S) left - REMOVAL OF TONSILS,<12 Y/O 1987 Tonsillectomy ALLERGIES Pamprin Multi-Symptom [Atrcfeordvixv-Rcybuuzm-Oqdx vogt]; Codeine; Lamotrigine; Nitrofurantoin Macrocrystal; Promethazine-Pheny lephrine -This section reviewed with patient, no changes MEDICATIONS venlafaxine ER (EFFEXOR XR) 150 mg 24 hr capsule Take 1 caps ule by mouth twice daily. traZODone (DESYREL) 100 mg tablet Take 100 mg by mouth. busPIRone (BUSPAR) 10 mg tablet Take 11 tablets by mouth thr ee times daily. lurasidone (LATUDA) 20 mg tablet Take by mouth. amoxicillin-clavulanic acid (AUGMENTIN) 875-125 mg per table t Take 1 tablet by mouth twice daily for 10 days. lidocaine viscous (LIDOCAINE VISCOUS) 2 % solution Take 5 mL by mouth as needed. ibuprofen (MOTRIN) 400 mg tablet Take 1 tablet by mouth ever y 6 hours as needed for Pain. ondansetron orally disintegrating (ZOFRAN ODT) 4 mg disinteg rating tablet Take 1 tablet by mouth every 6 hours as needed for Nausea/Vo miting. traZODone (DESYREL) 50 mg tablet Take 2 tablets by mouth brian ly at bedtime. escitalopram oxalate (LEXAPRO) 5 mg tablet Take 2 tablets by mouth once daily. sofosbuvir-velpatasvir (EPCLUSA) 400-100 mg tab Take 1 table t by mouth daily with lunch. alprazolam (XANAX ORAL) Take 0.5 mg by mouth as needed. FAMILY HISTORY Problem Relation Age of Onset - Psychiatry Mother DEPRESSION - Cervical Cancer Maternal Grandmother - Hypertension Maternal Grandmother - Cancer Maternal Grandfather BLADDER - Heart Maternal Grandfather AL AND EMPHYSEMA Social History Tobacco Use - Smoking status: Current Every Day Smoker Packs/day: 1.00 Years: 14.00 Pack years: 14.00 Types: Cigarettes - Smokeless tobacco: Never Used Substance Use Topics - Alcohol use: No - Drug use: No Review of Systems Constitutional: Negative for fever. HENT: Positive for congestion, ear pain and sinus pain. Nega tive for nosebleeds and sore throat. Respiratory: Positive for cough. Negative for shortness of b reath and wheezing. Musculoskeletal: Negative for neck pain. Skin: Negative for itching and rash. Objective Blood pressure 128/82, pulse 84, temperature 36.8 ?C (98.3 ? F), temperature source Right Tympanic, resp. rate 16, weight 62. 2 kg (137 lb 3.2 oz), last menstrual period 05/27/2009. exam limited d/t covid 19 pandemic Physical Exam Constitutional: She is oriented to person, place, and time a nd well-developed, well-nourished, and in no distress. Non-toxi c appearance. She does not have a sickly appearance. No distress. HENT: Head: Normocephalic and atraumatic. Right Ear: Hearing, external ear and ear canal normal. Tympa [place] membrane is erythematous and bulging. Tympanic membrane is not perfor ated. Left Ear: Hearing, tympanic membrane, external ear and ear c anal normal. Nose: Right sinus exhibits frontal sinus tenderness. Left si nus exhibits frontal sinus tenderness. Mouth/Throat: Uvula is midline, oropharynx is clear and mois t and mucous membranes are normal. Eyes: Pupils are equal, round, and reactive to light. Conjun ctivae and lids are normal. Right eye exhibits no discharge. Left eye e xhibits no discharge. No scleral icterus. Neck: Trachea normal and normal range of motion. Neck supple . Pulmonary/Chest: Effort normal. Lymphadenopathy: She has no cervical adenopathy. Neurological: She is alert and oriented to person, place, an d time. Skin: No rash noted. She is not diaphoretic. ASSESSMENT/PLAN: 1. Acute otitis media, left - ICD9: 382.9, ICD10: H66.92 (pr imary diagnosis) - Will begin treatment with augmentinfor 10 days - Supportive care with plenty of fluids, rest, and analgesia prn. - Follow up in 3-5 days if symptoms persist or worsen. - AMOXICILLIN 875 MG-POTASSIUM CLAVULANATE 125 MG TABLET 2. Bacterial sinusitis - ICD9: 473.9, 041.9, ICD10: J32.9, B 96.89 - Will begin treatment with Augmentin 875 mg PO BID for 10 d ays - Supportive care with plenty of fluids, rest, and analgesia prn. - Follow up in 3-5 days if symptoms persist or worsen. - AMOXICILLIN 875 MG-POTASSIUM CLAVULANATE 125 MG TABLET Agrees to plan Louis De Paz APRN.CNP cnov on 2019-12-05 CNOV Office Visit (UCWSTR) Normal 12-05-19 [place] PAT Stark ([id number]) 1980 [facility] Date Time Provider Department ([id number]) 12/05/19 10:30 AM LOUIS DE PAZ (LUIS DANIEL) WSTR During your visit today, we recorded the following informati on about you: Temperature Pulse Respiration Blood pressure 98.3 degrees 84/minute 16/minute 128/82 Weight 62.2 kg Louis De Paz APRN.CNP 12/05/2019 11:18 AM Signed Subjective HPI HPI Pat Alba Antonia is a [age] year old female who presents today for CC of left ear pain/headache possibly sinus. This started 4 days ago. H as tried otc medication with mild relief. Risk factors hx of ear infectio ns, tubes. Smoker. Denies possibility of being . .Patient presents with: Ear Problem: LEFT ear pain x 1 day with ALEJANDRA x 4 days PAST MEDICAL HISTORY Diagnosis Date - Abdominal pain, unspecified site - Abnormal glandular Papanicolaou smear of cervix 04/08/2006 Abn. Pap smear (cervix) - Allergic rhinitis, cause unspecified 04/05/2006 - Anxiety - Congestive heart failure (HCC) - Depression - Diarrhea - Hypertension - Irritable bowel syndrome - Mental disorders complicating , childbirth, or th e puerperium DEPRESSION - Migraine, unspecified, with intractabl e migraine, so stated, without mention of status migrainosus - Other and unspecified ovarian cyst - PMH - PAST MEDICAL HISTORY OF Narcotic dependence requiring rehab in 2007 - Temporomandibular joint disorders, unspecified PAST SURGICAL HISTORY Procedure Laterality Date - COLPOSCOPY (VAGINOSCOPY) Colposcopy - DANDC, DIAG AND/OR THERAPEUTIC 2000 Dilation AND curettage,TAB - EGD W/O OR W/BRUSH/WASH 11/01/11 EGD [facility] inpt H-pylori negative - INCISION EARDRUM,ASPIR,GEN ANESTH 1994 Myringotomy/tubes - LIGATE FALLOPIAN TUBE 04/09/2006 Tubal ligation - REMOVAL ADENOIDS,PRIMARY,<12 Y/O Adenoidectomy - REMOVAL OF OVARY(S) left - REMOVAL OF TONSILS,<12 Y/O 1987 Tonsillectomy ALLERGIES Pamprin Multi-Symptom [Gsqbdihcvitxm-Uorjgcfw-Ykyk vogt]; Codeine; Lamotrigine; Nitrofurantoin Macrocrystal; Promethazine-Pheny lephrine -This section reviewed with patient, no changes MEDICATIONS venlafaxine ER (EFFEXOR XR) 150 mg 24 hr capsule Take 1 capsule by mouth twice daily. traZODone (DESYREL) 100 mg tablet Take 100 mg by mouth. busPIRone (BUSPAR) 10 mg tablet Take 11 tablets by mouth t hree times daily. lurasidone (LATUDA) 20 mg tablet Take by mouth. amoxicillin-clavulanic acid (AUGMENTIN) 875-125 mg per tablet Take 1 tablet by mouth twice daily for 10 days. lidocaine viscous (LIDOCAINE VISCOUS) 2 % solution Take 5 mL by mouth as needed. ibuprofen (MOTRIN) 400 mg ta blet Take 1 tablet by mouth every 6 hours as needed for Pain. ondansetron orally disintegrating (ZOFRA N ODT) 4 mg disintegrating tablet Take 1 tablet by mouth every 6 hours as needed for Nausea/Vomitin g. traZODone (DESYREL) 50 mg tablet Take 2 tablets by mouth brian ly at bedtime. escitalopram oxalate (LEXAPRO) 5 mg tabl et Take 2 tablets by mouth once daily. sofosbuvir-velpatasvir (EPCLUSA) 400-100 mg tab Take 1 tablet by mouth daily with lunch. alprazolam (XANAX ORAL) Take 0.5 mg by mouth as needed. FAMILY HISTORY Problem Relation Age of Onset - Psychiatry Mother DEPRESSION - Cervical Cancer Maternal Grandmother - Hypertension Maternal Grandmother - Cancer Maternal Grandfather BLADDER - Heart Maternal Grandfather AL AND EMPHYSEMA Social History Tobacco Use - Smoking status: Current Every Day Smoker Packs/day: 1.00 Years: 14.00 Pack years: 14.00 Types: Cigarettes - Smokeless tobacco: Never Used Substance Use Topics - Alcohol use: No - Drug use: No Review of Systems Constitutional: Negative for fever. HENT: Positive for congestio n, ear pain and sinus pain. Negative for nosebleeds and sore throat. Respiratory: Positive for co ugh. Negative for shortness of breath and wheezing. Musculoskeletal: Negative for neck pain. Skin: Negative for itching and rash. Objective Blood pressure 128/82, pulse 84, temperature 36.8 ?C (98.3 ?F), temperature source Right Tympanic, resp. rate 16, weight 62.2 kg (137 lb 3.2 oz), last menstrual period 05/27/2009. exam limited d/t covid 19 pandemic Physical Exam Constitutional: She is oriented to perso n, place, and time and well-developed, well-nourished, and in no distress. Non-toxic ap pearance. She does not have a sickly appearance. No distress. HENT: Head: Normocephalic and atraumatic. Right Ear: Hearing, external ear and ear canal normal. Tym panic membrane is erythematous and bulging. Tympanic membrane is not perforate d. Left Ear: Hearing, tympanic membrane, external ear and ear c anal normal. Nose: Right sinus exhibits frontal sinus tenderness. Left si nus exhibits frontal sinus tenderness. Mouth/Throat: Uvula is midline, oropharynx is clear and mois t and mucous membranes are normal. Eyes: Pupils are equal, roun d, and reactive to light. Conjunctivae and lids are normal. Right eye exhibits no discharge. Left eye exhibits no discharge. No scleral icterus. Neck: Trachea normal and normal range of motion. Neck supple . Pulmonary/Chest: Effort normal. Lymphadenopathy: She has no cervical adenopathy. Neurological: She is alert and oriented to person, place, an d time. Skin: No rash noted. She is not diaphoretic. ASSESSMENT/PLAN: 1. Acute otitis media, left - ICD9: 382.9, ICD10: H66. 92 (primary diagnosis) - Will begin treatment with augmentinfor 10 days - Supportive care with plenty of fluids, rest, and analgesia prn. - Follow up in 3-5 days if symptoms persist or worsen. - AMOXICILLIN 875 MG-POTASSIUM CLAVULANATE 125 MG TABLET 2. Bacterial sinusitis - ICD9: 473.9, 041.9, ICD10: J32.9, B 96.89 - Will begin treatment with Augmentin 875 mg PO BID for 10 d ays - Supportive care with plenty of fluids, rest, and analgesia prn. - Follow up in 3-5 days if symptoms persist or worsen. - AMOXICILLIN 875 MG-POTASSIUM CLAVULANATE 125 MG TABLET Agrees to plan Louis De Paz APRN.[employer]AT[employer]ICER Referring Provider: SELF [[id number]] Allergies As of Date: 12/05/2019 Noted Allergy Reaction PAMPRIN MULTI-SYMPTOM (ACETAMINOP*01/19/2007 2 - Rash 9 - Itching 12 - Shortness of Breath Comments: Severe itching all over body, slight rash, hyper v entilating, lips swelled badly CODEINE 02/03/2007 4 - Hives 9 - Itching LAMOTRIGINE 01/03/2017 4 - Hives NITROFURANTOIN MACROCRYSTAL 12/24/2014 16 - Unknown PROMETHAZINE-PHENYLEPHRINE 04/27/2010 5 - Intolerance Comments: Make her feel like passing out Date Reviewed: 12/05/2019 Reviewed by: Jaylyn Diaz Ma - Fully Assessed Reason for Visit: Ear Problem [38] Cmt: LEFT ear pain x 1 day with ALEJANDRA x 4 days Primary Visit Diagnosis:Acute otitis media, left [H66.92] Other Visit Diagnosis:Bacterial sinusitis [J32.9, B96.89] Order(s):amoxicillin-clavulanic acid (AUGMENTIN) 875-1 25 mg per tabletTake 1 tablet by mouth twice daily for 10 days.Disp: 20 tabletRfl: 0 Prescriptions as of 12/05/2019 Sig: VENLAFAXINE ER 150 MG CAPSULE* Take 1 capsule by mouth twice * TRAZODONE 100 MG TABLET Take 100 mg by mouth. BUSPIRONE 10 MG TABLET Take 11 tablets by mouth thre* LURASIDONE 20 MG TABLET Take by mouth. AMOXICILLIN 875 MG-POTASSIUM * Take 1 tablet by mouth twice * LIDOCAINE HCL 2 % MUCOSAL JOHAN* Take 5 mL by mouth as needed. Patient not taking: Reported on 04/02/2019 IBUPROFEN 400 MG TABLET Take 1 tablet by mouth every * Patient not taking: Reported on 04/02/2019 ONDANSETRON 4 MG DISINTEGRATI* Take 1 tablet by mouth every * Patient not taking: Reported on 04/02/2019 TRAZODONE 50 MG TABLET Take 2 tablets by mouth daily* Patient not taking: Reported on 04/02/2019 ESCITALOPRAM 5 MG TABLET Take 2 tablets by mouth once * Patient not taking: Reported on 04/02/2019 SOFOSBUVIR 400 MG-VELPATASVIR* Take 1 tablet by mouth daily * Patient not taking: Reported on 07/14/2018 XANAX ORAL Take 0.5 mg by mouth as neede* Problem List As Of Date 12/05/2019 Noted Resolved Irritable bowel syndrome [K58.9] 10/27/2012 Nonallopathic lesion of lower extremities, not *11/23/2005 0 10/27/2012 ALLERGIC RHINITIS NOS [J30.9] 04/05/2006 Migraine, unspecified, with intractable migrain* 10/27/2012 Diarrhea [R19.7] Internal derangement of knee [M23.90] 07/28/2009 10/27/2012 Chronic pain [G89.29] 05/29/2010 More... Depression [F32.9] Anxiety [F41.9] ADD (attention deficit hyperactivity disorder, *09/19/2013 Hypertension [I10] 09/11/2014 Congestive heart failure (HCC) [I50.9] 09/11/2014 Hepatitis C virus infection without hepatic com*06/15/2016 Chronic hepatitis C without hepatic coma (HCC) *06/15/2016 1 08/16/2015 Insomnia [G47.00] 01/26/2017 Prescriptions ordered this encounter Disp Refills Start End AMOXICILLIN 875 MG-POTASSIUM CLAVULA* 20 t* 0 12/05/2019 Route: ORAL Sig: Take 1 tablet by mouth twice daily for 10 days. Encounter Status:Closed by LOUIS DE PAZ CNP on 12/05/19 cnpn on 2019-10-04 CNPN Telephone ([facility]WSTR) Normal 10-04-2019 [facility] PAT KNIGHT ([id number]) 1980 [facility] Date Time Provider Department ([id number]) 10/04/19 TERRI RANDHAWA) [facility] During your visit today, we recorded the following informati on about you: Terri Randhawa PA-C 10/04/2019 6:40 AM Signed Please call patient and let her know her vaginal swabs were positive for BV. Flagyl was sent to the pharmacy. Do not drink while ta aurora this. Also see if she went to the ER as instructed on day of visit. Michelle Monique Ma 10/09/2019 10:56 AM Signed Left message for patient to return call. Michelle Monique Ma 10/09/2019 10:58 AM Signed Patient was given flagyl in ed. notified patient of results. Michelle Monique Ma Allergies As of Date: 10/04/2019 Noted Allergy Reaction PAMPRIN MULTI-SYMPTOM (ACETAMINOP*01/19/2007 2 - Rash 9 - Itching 12 - Shortness of Breath Comments: Severe itching all over body, slight rash, hyper v entilating, lips swelled badly CODEINE 02/03/2007 4 - Hives 9 - Itching LAMOTRIGINE 01/03/2017 4 - Hives NITROFURANTOIN MACROCRYSTAL 12/24/2014 16 - Unknown PROMETHAZINE-PHENYLEPHRINE 04/27/2010 5 - Intolerance Comments: Make her feel like passing out Date Reviewed: 10/01/2019 Reviewed by: Michelle Monique Ma - Fully Assessed Reason for Visit: Results [95] Order(s):[] metroNIDAZOLE (FLAGYL ) 500 mg tabletTake 4 tablets by mouth one time only for 1 dose.Disp: 4 tabletRfl: 0 Prescriptions as of 10/04/2019 Sig: METRONIDAZOLE 500 MG TABLET Take 4 tablets by mouth one t* TRAZODONE 100 MG TABLET Take 100 mg by mouth. BUSPIRONE ORAL Take by mouth. LURASIDONE 20 MG TABLET Take by mouth. LIDOCAINE HCL 2 % MUCOSAL JOHAN* Take 5 mL by mouth as needed. Patient not taking: Reported on 04/02/2019 IBUPROFEN 400 MG TABLET Take 1 tablet by mouth every * Patient not taking: Reported on 04/02/2019 ONDANSETRON 4 MG DISINTEGRATI* Take 1 tablet by mouth every * Patient not taking: Reported on 04/02/2019 TRAZODONE 50 MG TABLET Take 2 tablets by mouth daily* Patient not taking: Reported on 04/02/2019 ESCITALOPRAM 5 MG TABLET Take 2 tablets by mouth once * Patient not taking: Reported on 04/02/2019 SOFOSBUVIR 400 MG-VELPATASVIR* Take 1 tablet by mouth daily * Patient not taking: Reported on 07/14/2018 XANAX ORAL Take 0.5 mg by mouth as neede* Problem List As Of Date 10/04/2019 Noted Resolved Irritable bowel syndrome [K58.9] 10/27/2012 Nonallopathic lesion of lower extremities, not *11/23/2005 0 10/27/2012 ALLERGIC RHINITIS NOS [J30.9] 04/05/2006 Migraine, unspecified, with intractable migrain* 10/27/2012 Diarrhea [R19.7] Internal derangement of knee [M23.90] 07/28/2009 10/27/2012 Chronic pain [G89.29] 05/29/2010 More... Depression [F32.9] Anxiety [F41.9] ADD (attention deficit hyperactivity disorder, *09/19/2013 Hypertension [I10] 09/11/2014 Congestive heart failure (HCC) [I50.9] 09/11/2014 Hepatitis C virus infection without hepatic com*06/15/2016 Chronic hepatitis C without hepatic coma (HCC) *06/15/2016 1 08/16/2015 Insomnia [G47.00] 01/26/2017 Prescriptions ordered this encounter Disp Refills Start End METRONIDAZOLE 500 MG TABLET 4 ta* 0 10/04/2019 10/04/2019 Route: ORAL Sig: Take 4 tablets by mouth one time only for 1 dose. Encounter Status:Closed by TERRI RANDHAWA PA-C on 10/09/19 vag pathogens dna o n 2019-10-01 Radha sp DNA Negative for Negative for Normal 0 [facility] Probe Radha species Radha species [place] ([id number]) by DNA Probe by DNA Probe Comment: Performed By: #### VAGDNA ## ## [facility] [address] [place] [phone] Jeremy vag Positive for Negative for Critically 10-01-2019 Cl heriberto DNA Probe Gardnerella Gardnerella abnormal Clinic vaginalis by DNA vaginalis by DNA [place] probe. Probe ([id number]) Comment: Result Comment: This is sugg estive, but not diagnostic of bacterial vaginosis, results should be interpreted in conjunction with other data such as pH, amine odor, clue cell s and vaginal discharge characteristics. Performed By: #### VAGDNA ## ## [facility] [address] [place] [phone] Trich vag DNA Negative for Negative for Normal 10-01-2019 [facility] Probe Trichomonas Trichomonas Clevel and vaginalis by DNA vaginalis by DNA ([id number]) Probe Probe Comment: Performed By: #### VAGDNA ## ## [facility] [address] [place] [phone] urine culture on 14-10-05 Bacteria identified Sp. Request/Comment: - Specimen received in pre servative Normal 10-01-2019 [facility] Cx Nom (U) [place] ([id number]) Culture Result - <10,000 CFU/ml Normal urogenital juan f Comment: Performed By: #### URCUL ### # [facility] [place] [phone] progress on 2019-09 PROGRESS HNO ID: [id number] Normal 10-01-2019 [place] Author: Andrade ([facility]) [facility] Service: ? [place] Author Type: Nurse Practitioner ([id number]) Type: Progress Notes Filed: 10/01/2019 4:04 PM Note Text: Subjective 39 year old female with PMH of endometrial ablation and left oophorectomy presents with chief complaint vaginal pain and frequent urin ation. Endorses acute onset of symptoms was 3 days ago. Locates gini n in pelvic region and describes it as pressure. States tenderness and s ore of vagina. Denies vaginal discharge. Denies vaginal bleeding. +frequent urination. Denies dysuria, hematuria. Denies flank pain. Denies abdomin al pain. Denies fever or chills. Has been utilizing Tylenol and Ibupr ofen with minimal relief. Movement exacerbates. Denies concerns for ST I. Endorses history of BV in the past, but that this feels different. Hi story of ovarian cyst and states that was why she had the oophorectom y. Rates pain 02/03. The history is provided by the patient. No language interpre ter was used. Vaginal Problem This is a recurrent problem. The current episode started in the past 7 days. The problem occurs constantly. The problem has been gr adually worsening. Associated symptoms include fatigue, nausea and u rinary symptoms. Pertinent negatives include no abdominal pain, araseli nge in bowel habit, chest pain, chills, congestion, coughing, fever, head aches, myalgias, neck pain, numbness, rash, sore throat, swollen gl ands or vomiting. The symptoms are aggravated by intercourse (moveme nt). She has tried acetaminophen and NSAIDs for the symptoms. The treatme nt provided mild relief. Review of Systems Constitutional: Positive for fatigue. Negative for chills, f ever and malaise/fatigue. HENT: Negative for congestion and sore throat. Eyes: Negative for pain, discharge and redness. Respiratory: Negative for cough. Cardiovascular: Negative for chest pain, palpitations, ortho pnea and claudication. Gastrointestinal: Positive for nausea. Negative for abdomina l pain, change in bowel habit, constipation, diarrhea and vomiting. Genitourinary: Positive for vaginal discharge. Negative for flank pain and hematuria. +pelvic and vaginal pain Musculoskeletal: Negative for back pain, myalgias and neck p ain. Skin: Negative for itching and rash. Neurological: Negative for dizziness, tingling, tremors, sen cristian change, numbness and headaches. Endo/Heme/Allergies: Negative for environmental allergies an d polydipsia. Does not bruise/bleed easily. Psychiatric/Behavioral: Negative for depression, substance a buse and suicidal ideas. PAST MEDICAL HISTORY Diagnosis Date - Abdominal pain, unspecified site - Abnormal glandular Papanicolaou smear of cervix 04/08/2006 Abn. Pap smear (cervix) - Allergic rhinitis, cause unspecified 04/05/2006 - Anxiety - Congestive heart failure (HCC) - Depression - Diarrhea - Hypertension - Irritable bowel syndrome - Mental disorders complicating , childbirth, or th e puerperium DEPRESSION - Migraine, unspecified, with intractable migraine, so state d, without mention of status migrainosus - Other and unspecified ovarian cyst - PMH - PAST MEDICAL HISTORY OF Narcotic dependence requiring rehab in 2006 - Temporomandibular joint disorders, unspecified PAST SURGICAL HISTORY Procedure Laterality Date - COLPOSCOPY (VAGINOSCOPY) Colposcopy - DANDC, DIAG AND/OR THERAPEUTIC 2000 Dilation AND curettage,TAB - EGD W/O OR W/BRUSH/WASH 11/01/11 EGD [facility] inpt H-pylori negative - INCISION EARDRUM,ASPIR,GEN ANESTH 1994 Myringotomy/tubes - LIGATE FALLOPIAN TUBE 04/09/2006 Tubal ligation - REMOVAL ADENOIDS,PRIMARY,<12 Y/O Adenoidectomy - REMOVAL OF OVARY(S) left - REMOVAL OF TONSILS,<12 Y/O 1987 Tonsillectomy ALLERGIES Pamprin Multi-Symptom [Zjwlxfsvqfiml-Zaxaqpho-Uloj vogt]; Codeine; Lamotrigine; Nitrofurantoin Macrocrystal; Promethazine-Pheny lephrine MEDICATIONS traZODone (DESYREL) 100 mg tablet Take 100 mg by mouth. buspirone HCl (BUSPIRONE ORAL) Take by mouth. lurasidone (LATUDA) 20 mg tablet Take by mouth. lidocaine viscous (LIDOCAINE VISCOUS) 2 % solution Take 5 mL by mouth as needed. ibuprofen (MOTRIN) 400 mg tablet Take 1 tablet by mouth ever y 6 hours as needed for Pain. ondansetron orally disintegrating (ZOFRAN ODT) 4 mg disinteg rating tablet Take 1 tablet by mouth every 6 hours as needed for Nausea/Vo miting. traZODone (DESYREL) 50 mg tablet Take 2 tablets by mouth brian ly at bedtime. escitalopram oxalate (LEXAPRO) 5 mg tablet Take 2 tablets by mouth once daily. sofosbuvir-velpatasvir (EPCLUSA) 400-100 mg tab Take 1 table t by mouth daily with lunch. alprazolam (XANAX ORAL) Take 0.5 mg by mouth as needed. FAMILY HISTORY Problem Relation Age of Onset - Psychiatry Mother DEPRESSION - Cervical Cancer Maternal Grandmother - Hypertension Maternal Grandmother - Cancer Maternal Grandfather BLADDER - Heart Maternal Grandfather AL AND EMPHYSEMA Social History Tobacco Use - Smoking status: Current Every Day Smoker Packs/day: 1.00 Years: 14.00 Pack years: 14.00 Types: Cigarettes - Smokeless tobacco: Never Used Substance Use Topics - Alcohol use: No - Drug use: No BP 96/62 Pulse 82 Temp 36.9 ?C (98.5 ?F) (Tympanic) Re sp 16 Wt 65.8 kg (145 lb) LMP 05/27/2009 BMI 24.13 kg/m? Objective Physical Exam Constitutional: She is oriented to person, place, and time a nd well-developed, well-nourished, and in no distress. HENT: Head: Normocephalic and atraumatic. Right Ear: External ear normal. Left Ear: External ear normal. Mouth/Throat: Oropharynx is clear and moist. Eyes: Pupils are equal, round, and reactive to light. Conjun ctivae and EOM are normal. Right eye exhibits no discharge. Left eye exhibi ts no discharge. No scleral icterus. Neck: Normal range of motion. Neck supple. No tracheal devia tion present. No thyromegaly present. Cardiovascular: Normal rate, regular rhythm and normal heart sounds. Exam reveals no gallop and no friction rub. No murmur heard. Pulmonary/Chest: Effort normal and breath sounds normal. No respiratory distress. She has no wheezes. She has no rales. She exhibits no tenderness. Abdominal: Soft. Bowel sounds are normal. She exhibits no di stension. There is no abdominal tenderness. Genitourinary: Vulva normal. Cervix exhibits motion tenderness and tenderness. Right adne xum displays tenderness. Right adnexum displays no deviation and no mass. Left adnexum displays tenderness. Left adnexum displays no deviation and no mass. Vaginal discharge and exudate present. No vaginal mucosa abnormality. Thick odorless and white found. Genitourinary Comments: Diffuse pain with examination includ ing CMT and adnexal TTP. Musculoskeletal: Normal range of motion. General: No tenderness, deformity or edema. Lymphadenopathy: She has no cervical adenopathy. Neurological: She is alert and oriented to person, place, an d time. GCS score is 15. Skin: Skin is warm and dry. No rash noted. No erythema. No p allor. Psychiatric: Mood, affect and judgment normal. Nursing note and vitals reviewed. ASSESSMENT/PLAN: 1. Pelvic pain in female - ICD9: 625.9, ICD10: R10.2 Etiology unclear Differential Diagnosis includes Ovarian cyst and PID - Labs of Urine analysis which is negative. - Pelvic exam reveals moderate discharge along with tenderne ss throughout examination. -Concerning for ovarian etiology, ie torsion or possible PID Have referred patient to ED for additional work up and manag ement. ER Passport completed for [facility] and patient will self t ransport. - UA DIP, URINE (POC) - URINE CULTURE - VAGINAL PATHOGENS DNA PROBES - GC/CHLAMYDIA DNA DET Andrade Reddy, TAKE UP OPERATOR.GLOBAL CHIEF CREATIVE OFFICER gc/chlamydia amplif on 2019-10-01 Chlamydia Amplif Negative for Chlamydia Normal 10-01-2019 [facility] trachomatis by Arturo farah ([id number]) amplification. Comment: Performed By: #### GCCT #### [facility] [address] [address] GC Amplification Negative for Neisseria Normal 10-01-2019 [facility] gonorrhoeae by Arturo farah ([id number]) amplification. Comment: Performed By: #### GCCT #### [facility] [address] [address] GC/Chlam Amp Source Cervix Normal 10-01-2019 [facility] ([id number]) Comment: Performed By: #### GCCT #### [facility] [address] [address] cnov on 2019-10-01 CNOV Office Visit ([facility]) Normal 10-01-19 20 [place] PAT Stark ([id number]) 1980 F [place] Date Time Provider Department ([id number]) 10/01/19 3:30 PM ANDRADE REDDY (LUIS DANIEL) [facility] During your visit today, we recorded the following informati on about you: Temperature Pulse Respiration Blood pressure 98.5 degrees 82/minute 16/minute 96/62 Weight 65.8 kg Andrade Reddy APRN.CNP 10/01/2019 4:04 PM Signed Subjective 39 year old female with PMH of endometrial ablation and left oophorectomy presents with chief complaint vaginal pain and frequent urin ation. Endorses acute onset of symptoms was 3 d ays ago. Locates pain in pelvic region and describes it as pressure. States tenderness and sore of vagina. Denies vaginal discharge. Denies vaginal bleeding. +frequent urinat ion. Denies dysuria, hematuria. Denies flank pain. Denies ab dominal pain. Denies fever or chills. Has been utilizing Tylenol and I buprofen with minimal relief. Movement exacerbates. Denies concerns for STI. Endorses h istory of BV in the past, but that this feels different. History of ov ines cyst and states that was why she had the oophorectomy. Rates pain 8/10. The history is provided by the patient. No language interpre ter was used. Vaginal Problem This is a recurrent problem. The current episode start ed in the past 7 days. The problem occurs constantly. The problem has been graduall y worsening. Associated symptoms include fatigue, nausea and urinary sy mptoms. Pertinent negatives include no abdomin al pain, change in bowel habit, chest pain, chills, congestion, coughing, fever, headaches, myalgias, neck pain, numbness, rash, sore throat, swollen glands or vomiting. The symptoms are ag gravated by intercourse (movement). She has tried acetaminophen and NSAI Ds for the symptoms. The treatment provided mild relief. Review of Systems Constitutional: Positive for fatigue. Negative for chills, f ever and malaise/fatigue. HENT: Negative for congestion and sore throat. Eyes: Negative for pain, discharge and redness. Respiratory: Negative for cough. Cardiovascular: Negative for chest pain, palpitations, ortho pnea and claudication. Gastrointestinal: Positive for nausea. Negative for abdominal pain, change in bowel habit, constipation, diarrhea and vomiting. Genitourinary: Positive for vaginal discharge. Negative for flank pain and hematuria. +pelvic and vaginal pain Musculoskeletal: Negative for back pain, myalgias and neck p ain. Skin: Negative for itching and rash. Neurological: Negative for dizziness, tingling, tremors, sen cristian change, numbness and headaches. Endo/Heme/Allergies: Negative for enviro nmental allergies and polydipsia. Does not bruise/bleed easily. Psychiatric/Behavioral: Negative for depression, substance abuse and suicidal ideas. PAST MEDICAL HISTORY Diagnosis Date - Abdominal pain, unspecified site - Abnormal glandular Papanicolaou smear of cervix 04/08/2006 Abn. Pap smear (cervix) - Allergic rhinitis, cause unspecified 04/05/2006 - Anxiety - Congestive heart failure (HCC) - Depression - Diarrhea - Hypertension - Irritable bowel syndrome - Mental disorders complicating , childbirth, or th e puerperium DEPRESSION - Migraine, unspecified, with intractabl e migraine, so stated, without mention of status migrainosus - Other and unspecified ovarian cyst - PMH - PAST MEDICAL HISTORY OF Narcotic dependence requiring rehab in 2006 - Temporomandibular joint disorders, unspecified PAST SURGICAL HISTORY Procedure Laterality Date - COLPOSCOPY (VAGINOSCOPY) Colposcopy - DANDC, DIAG AND/OR THERAPEUTIC 2000 Dilation AND curettage,TAB - EGD W/O OR W/BRUSH/WASH 11/01/11 EGD [facility] inpt H-pylori negative - INCISION EARDRUM,ASPIR,GEN ANESTH 1994 Myringotomy/tubes - LIGATE FALLOPIAN TUBE 04/09/2006 Tubal ligation - REMOVAL ADENOIDS,PRIMARY,<12 Y/O Adenoidectomy - REMOVAL OF OVARY(S) left - REMOVAL OF TONSILS,<12 Y/O 1988 Tonsillectomy ALLERGIES Pamprin Multi-Symptom [Qqbgnfndtbejy-Rirnapzn-Cugp vogt]; Codeine; Lamotrigine; Nitrofurantoin Macrocrystal; Promethazine-Pheny lephrine MEDICATIONS traZODone (DESYREL) 100 mg tablet Take 100 mg by mouth. buspirone HCl (BUSPIRONE ORAL) Take by mouth. lurasidone (LATUDA) 20 mg tablet Take by mouth. lidocaine viscous (LIDOCAINE VISCOUS) 2 % solution Take 5 mL by mouth as needed. ibuprofen (MOTRIN) 400 mg ta blet Take 1 tablet by mouth every 6 hours as needed for Pain. ondansetron orally disintegrating (ZOFRA N ODT) 4 mg disintegrating tablet Take 1 tablet by mouth every 6 hours as needed for Nausea/Vomitin g. traZODone (DESYREL) 50 mg tablet Take 2 tablets by mouth brian ly at bedtime. escitalopram oxalate (LEXAPRO) 5 mg tabl et Take 2 tablets by mouth once daily. sofosbuvir-velpatasvir (EPCLUSA) 400-100 mg tab Take 1 tablet by mouth daily with lunch. alprazolam (XANAX ORAL) Take 0.5 mg by mouth as needed. FAMILY HISTORY Problem Relation Age of Onset - Psychiatry Mother DEPRESSION - Cervical Cancer Maternal Grandmother - Hypertension Maternal Grandmother - Cancer Maternal Grandfather BLADDER - Heart Maternal Grandfather AL AND EMPHYSEMA Social History Tobacco Use - Smoking status: Current Every Day Smoker Packs/day: 1.00 Years: 14.00 Pack years: 14.00 Types: Cigarettes - Smokeless tobacco: Never Used Substance Use Topics - Alcohol use: No - Drug use: No BP 96/62 Pulse 82 Temp 36.9 ?C (98.5 ?F) (Tympanic) Re sp 16 Wt 65.8 kg (145 lb) LMP 05/27/2009 BMI 24.13 kg/m? Objective Physical Exam Constitutional: She is oriented to perso n, place, and time and well-developed, well-nourished, and in no distress. HENT: Head: Normocephalic and atraumatic. Right Ear: External ear normal. Left Ear: External ear normal. Mouth/Throat: Oropharynx is clear and moist. Eyes: Pupils are equal, round, and react haven to light. Conjunctivae and EOM are normal. Right eye exhibits no discharge. Left eye exhibits no discharge. No scleral icterus. Neck: Normal range of motion. Neck supple. No tracheal deviation present. No thyromegaly present. Cardiovascular: Normal rate, regular rhythm and normal heart sounds. Exam reveals no gallop and no friction rub. No murmur heard. Pulmonary/Chest: Effort normal and breath sounds normal. No respiratory distress. She has no wheezes. She has no rales. She exhibi ts no tenderness. Abdominal: Soft. Bowel sounds are normal . She exhibits no distension. There is no abdominal tenderness. Genitourinary: Vulva normal. Cervix exhibits motion tenderness and tenderness. Right adne xum displays tenderness. Right adnexum displays no deviation and no mass. Left adnexum displays tenderness. Left adnexum displays no deviatio n and no mass. Vaginal discharge and exudate present. No vaginal mucosa abnormality. Thick odorless and white found. Genitourinary Comments: Diffuse pain with examination includ ing CMT and adnexal TTP. Musculoskeletal: Normal range of motion. General: No tenderness, deformity or edema. Lymphadenopathy: She has no cervical adenopathy. Neurological: She is alert and oriented to perso n, place, and time. GCS score is 15. Skin: Skin is warm and dry. No rash noted. No erythema. No p allor. Psychiatric: Mood, affect and judgment normal. Nursing note and vitals reviewed. ASSESSMENT/PLAN: 1. Pelvic pain in female - ICD9: 625.9, ICD10: R10.2 Etiology unclear Differential Diagnosis includes Ovarian cyst and PID - Labs of Urine analysis which is negative. - Pelvic exam reveals moderate discharge along with tenderne ss throughout examination. -Concerning for ovarian etiology, ie torsion or possible PID Have referred patient to ED for additional work up and manag ement. ER Passport completed for [facility] and patient will self t ransport. - UA DIP, URINE (POC) - URINE CULTURE - VAGINAL PATHOGENS DNA PROBES - GC/CHLAMYDIA DNA DET Andrade Reddy APRN.GLOBAL CHIEF CREATIVE OFFICER Referring Provider: SELF [[id number]] Allergies As of Date: 10/01/2019 Noted Allergy Reaction PAMPRIN MULTI-SYMPTOM (ACETAMINOP*01/19/2007 2 - Rash 9 - Itching 12 - Shortness of Breath Comments: Severe itching all over body, slight rash, hyper v entilating, lips swelled badly CODEINE 02/03/2007 4 - Hives 9 - Itching LAMOTRIGINE 01/03/2017 4 - Hives NITROFURANTOIN MACROCRYSTAL 12/24/2014 16 - Unknown PROMETHAZINE-PHENYLEPHRINE 04/27/2010 5 - Intolerance Comments: Make her feel like passing out Date Reviewed: 10/01/2019 Reviewed by: Michelle Monique Ma - Fully Assessed Reason for Visit: Vaginal Problem [117] Cmt: vaginal pain, frequent urination x 3 days Reason For Visit History Recorded Primary Visit Diagnosis:Pelvic pain in female [R10.2] Order(s):UA DIP, URINE (POC) [[id number]] Order #: [id number] ec. #:[id number] URINE CULTURE [SQURCUL] Order #: [id number] VAGINAL PATHOGENS DNA PROBES [SQVAGDNA] Order #: [id number] GC/CHLAMYDIA DNA DET [SQGCCAMP] Order #: [id number] Prescriptions as of 10/01/2019 Sig: TRAZODONE 100 MG TABLET Take 100 mg by mouth. BUSPIRONE ORAL Take by mouth. LURASIDONE 20 MG TABLET Take by mouth. LIDOCAINE HCL 2 % MUCOSAL JOHAN* Take 5 mL by mouth as needed. Patient not taking: Reported on 04/02/2019 IBUPROFEN 400 MG TABLET Take 1 tablet by mouth every * Patient not taking: Reported on 04/02/2019 ONDANSETRON 4 MG DISINTEGRATI* Take 1 tablet by mouth every * Patient not taking: Reported on 04/02/2019 TRAZODONE 50 MG TABLET Take 2 tablets by mouth daily* Patient not taking: Reported on 04/02/2019 ESCITALOPRAM 5 MG TABLET Take 2 tablets by mouth once * Patient not taking: Reported on 04/02/2019 SOFOSBUVIR 400 MG-VELPATASVIR* Take 1 tablet by mouth daily * Patient not taking: Reported on 07/14/2018 XANAX ORAL Take 0.5 mg by mouth as neede* Problem List As Of Date 10/01/2019 Noted Resolved Irritable bowel syndrome [K58.9] 10/27/2012 Nonallopathic lesion of lower extremities, not *11/23/2005 0 10/27/2012 ALLERGIC RHINITIS NOS [J30.9] 04/05/2006 Migraine, unspecified, with intractable migrain* 10/27/2012 Diarrhea [R19.7] Internal derangement of knee [M23.90] 07/28/2009 10/27/2012 Chronic pain [G89.29] 05/29/2010 More... Depression [F32.9] Anxiety [F41.9] ADD (attention deficit hyperactivity disorder, *09/19/2013 Hypertension [I10] 09/11/2014 Congestive heart failure (HCC) [I50.9] 09/11/2014 Hepatitis C virus infection without hepatic com*06/15/2016 Chronic hepatitis C without hepatic coma (HCC) *06/15/2016 1 08/16/2015 Insomnia [G47.00] 01/26/2017 Letter Text Encounter Status:Closed by ANDRADE REDDY CNP on 10/01/19 vag pathogens dna o n 2019-04-02 Radha sp DNA Negative for Negative for Normal 9 [facility] Probe Radha species Radha species Latif ([id number]) by DNA Probe by DNA Probe Comment: Performed By: #### VAGDNA ## ## [facility] [address] [place] [address] Jeremy vag Positive for Negative for Critically 04-02-2019 Cl heriberto DNA Probe Gardnerella Gardnerella abnormal Clinic vaginalis by DNA vaginalis by DNA Latif probe. Probe ([id number]) Comment: Result Comment: This is sugg estive, but not diagnostic of bacterial vaginosis, results should be interpreted in conjunction with other data such as pH, amine odor, clue cell s and vaginal discharge characteristics. Performed By: #### VAGDNA ## ## [facility] [address] [place] [address] Trich vag DNA Negative for Negative for Normal 04-02-2019 [facility] Probe Trichomonas Trichomonas Clevel and vaginalis by DNA vaginalis by DNA ([id number]) Probe Probe Comment: Performed By: #### VAGDNA ## ## [facility] s [address] [place] [address] progress on 2019-03 PROGRESS HNO ID: [id number] Normal 04-02-2019 [facility] Author: Oksana teresa ([id number]) Service: ? Author Type: Nurse Practitioner Type: Progress Notes Filed: 04/02/2019 2:35 PM Note Text: Subjective HPI HPI Pat Knight is a 39 year old female who presents t [facility] for CC of urinary frequency and also vaginal discharge that started ov er the weekend. She recently was from , both had o ther partners and is desiring std testing. H/o BV recently BP 138/84 Pulse 84 Temp 36.4 ?C (97.6 ?F) (Tympanic) R huma 16 Wt 62.2 kg (137 lb 3.2 oz) BMI 22.83 kg/m? 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 Social Needs Financial resource strain: Not on file Food insecurity: Worry: Not on file Inability: Not on file Transportation needs: Medical: Not on file Non-medical: Not on file Tobacco Use Smoking status: Current Every Day Smoker Packs/day: 1.00 Years: 14.00 Pack years: 14 Types: Cigarettes Smokeless tobacco: Never Used Substance and Sexual Activity Alcohol use: No Drug use: No Sexual activity: Yes Partners: Male control/protection: Surgical, Tubal Ligation Lifestyle Physical activity: Days per week: Not on file Minutes per session: Not on file Stress: Not on file Relationships Social connections: Talks on phone: Not on file Gets together: Not on file Attends yarsanism service: Not on file Active member of club or organization: Not on file Attends meetings of clubs or organizations: Not on file Relationship status: Not on file Intimate partner violence: Fear of current or ex partner: Not on file Emotionally abused: Not on file Physically abused: Not on file Forced sexual activity: Not on file Other Topics Concerns: ADL RESPONSE: No ADL RESPONSE: No ADL RESPONSE: No ADL RESPONSE: No ADL RESPONSE: No ADL RESPONSE: No ADL RESPONSE: No ADL RESPONSE: No ADL RESPONSE: No ADL RESPONSE: No ADL RESPONSE: Yes DOESNT EXERCISE ROUTINELY ADL RESPONSE: No ADL RESPONSE: No ADL RESPONSE: Yes DOESNT DO SBE, PT COUNSELED Social History Narrative Not on file PAST MEDICAL HISTORY Diagnosis Date - Abdominal pain, unspecified site - Abnormal glandular Papanicolaou smear of cervix 04/08/2006 Abn. Pap smear (cervix) - Allergic rhinitis, cause unspecified 04/05/2006 - Anxiety - Congestive heart failure (HCC) - Depression - Diarrhea - Hypertension - Irritable bowel syndrome - Mental disorders complicating , childbirth, or e puerperium DEPRESSION - Migraine, unspecified, with intractable migraine, so state d, without mention of status migrainosus - Other and unspecified ovarian cyst - PMH - PAST MEDICAL HISTORY OF Narcotic dependence requiring rehab in 2006 - Temporomandibular joint disorders, unspecified I have confirmed and edited as necessary, the [facility] Review of Systems Constitutional: Negative for chills and fever. Gastrointestinal: Negative for abdominal pain. Genitourinary: Negative for dysuria, flank pain, frequency, hematuria and urgency. + vaginal discharge Objective Physical Exam Constitutional: She is oriented to person, place, and time a nd well-developed, well-nourished, and in no distress. Abdominal: Normal appearance and bowel sounds are normal. Sh e exhibits no abdominal bruit, no pulsatile midline mass and no mass. Ther e is no hepatosplenomegaly. There is no tenderness. There is no rigi dity, no rebound, no guarding, no CVA tenderness, no tenderness at Mc Reynold's point and negative Crockett's sign. Genitourinary: Cervix normal and vulva normal. Thick odorles s white yellow and vaginal discharge found. Genitourinary Comments: Cervix stenotic Neurological: She is alert and oriented to person, place, an d time. Psychiatric: Affect normal. Nursing note and vitals reviewed. ASSESSMENT/PLAN: 1. Urinary frequency - ICD9: 788.41, ICD10: R35.0 (primary d iagnosis) Urine dip is negative, will not send culture - UA DIP, URINE (POC) 2. Acute vaginitis - ICD9: 616.10, ICD10: N76.0 Will send culture for vag pathogens and gc/chlamydia testing Prescription given for metronidazole, will start if called w ith positive test for BV Will notify of testing If all negative and still having symptoms follow up with [facility] . - GC/CHLAMYDIA DNA DET - VAGINAL PATHOGENS DNA PROBES Diagnosis and treatment plan were discussed and questions we re answered to the patient's satisfaction. Pt acknowledged understanding of concepts and follow up plan. Specific signs and symptoms that would indicate the need for higher level of care were discussed in detail warranting prompt ER evalua tion. Oksana Weldon APRN.GLOBAL CHIEF CREATIVE OFFICER gc/chlamydia amplif on 2019-04-02 Chlamydia Amplif Negative for Chlamydia Normal 04-02-2019 [facility] trachomatis by Arturo farah ([id number]) amplification. Comment: Performed By: #### GCCT #### [facility] [address] [place] [address] GC Amplification Negative for Neisseria Normal 04-02-2019 [facility] gonorrhoeae by Arturo farah ([id number]) amplification. Comment: Performed By: #### GCCT #### [facility] [address] [place], [place] [address] GC/Chlam Amp Source Cervix Normal 04-02-2019 [facility] ([id number]) Comment: Performed By: #### GCCT #### [facility] [address] [place], [place] [address] cnov on 2019-04-02 CNOV Office Visit (UCWSTR) Normal 04-02-20 [facility] PAT KNIGHT ([id number]) 1980 [facility] Date Time Provider Department ([id number]) 04/02/19 2:00 PM OKSANA WELDON WSTR During your visit today, we recorded the following informati on about you: Temperature Pulse Respiration Blood pressure 97.6 degrees 84/minute 16/minute 138/84 Weight 62.2 kg Oksana Weldon APRN.CNP 04/02/2019 2:26 PM Signed ASSESSMENT/PLAN: 1. Urinary frequency - ICD9: 788.41, ICD10: R35.0 (primary d iagnosis) Urine dip is negative, will not send culture - UA DIP, URINE (POC) 2. Acute vaginitis - ICD9: 616.10, ICD10: N76.0 Will send culture for vag pathogens and gc/chlamydia testing Prescription given for metronidazole, will start if called with positive test Will notify of testing If all negative and still having symptoms follow up with [facility] . - GC/CHLAMYDIA DNA DET - VAGINAL PATHOGENS DNA PROBES Oksana Weldon APRN.CNP 04/02/2019 2:35 PM Signed Subjective HPI HPI Pat Anjali Antonia is a 39 year old female who presents t [facility] for CC of urinary frequency and also vaginal discharge that started over the weekend. She recently was from , both had other part ners and is desiring std testing. H/o BV recently BP 138/84 Pulse 84 Temp 36.4 ?C (97.6 ?F) (Tympanic) R huma 16 Wt 62.2 kg (137 lb 3.2 oz) BMI 22.83 kg/m? 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 Social Needs Financial resource strain: Not on file Food insecurity: Worry: Not on file Inability: Not on file Transportation needs: Medical: Not on file Non-medical: Not on file Tobacco Use Smoking status: Current Every Day Smoker Packs/day: 1.00 Years: 14.00 Pack years: 14 Types: Cigarettes Smokeless tobacco: Never Used Substance and Sexual Activity Alcohol use: No Drug use: No Sexual activity: Yes Partners: Male control/protection: Surgical, Tubal Ligation Lifestyle Physical activity: Days per week: Not on file Minutes per session: Not on file Stress: Not on file Relationships Social connections: Talks on phone: Not on file Gets together: Not on file Attends yarsanism service: Not on file Active member of club or organization: Not on file Attends meetings of clubs or organizations: Not on file Relationship status: Not on file Intimate partner violence: Fear of current or ex partner: Not on file Emotionally abused: Not on file Physically abused: Not on file Forced sexual activity: Not on file Other Topics Concerns: ADL RESPONSE: No ADL RESPONSE: No ADL RESPONSE: No ADL RESPONSE: No ADL RESPONSE: No ADL RESPONSE: No ADL RESPONSE: No ADL RESPONSE: No ADL RESPONSE: No ADL RESPONSE: No ADL RESPONSE: Yes DOESNT EXERCISE ROUTINELY ADL RESPONSE: No ADL RESPONSE: No ADL RESPONSE: Yes DOESNT DO SBE, PT COUNSELED Social History Narrative Not on file PAST MEDICAL HISTORY Diagnosis Date - Abdominal pain, unspecified site - Abnormal glandular Papanicolaou smear of cervix 04/08/2006 Abn. Pap smear (cervix) - Allergic rhinitis, cause unspecified 04/05/2006 - Anxiety - Congestive heart failure (HCC) - Depression - Diarrhea - Hypertension - Irritable bowel syndrome - Mental disorders complicating , childbirth, or th e puerperium DEPRESSION - Migraine, unspecified, with intractabl e migraine, so stated, without mention of status migrainosus - Other and unspecified ovarian cyst - PMH - PAST MEDICAL HISTORY OF Narcotic dependence requiring rehab in 2007 - Temporomandibular joint disorders, unspecified I have confirmed and edited as necessary, the [facility] Review of Systems Constitutional: Negative for chills and fever. Gastrointestinal: Negative for abdominal pain. Genitourinary: Negative for dysuria, flank pain, frequency, hematuria and urgency. + vaginal discharge Objective Physical Exam Constitutional: She is oriented to perso n, place, and time and well-developed, well-nourished, and in no distress. Abdominal: Normal appearance and bowel sounds are normal. Sh e exhibits no abdominal bruit, no pulsatile midline mass and no mass. Ther e is no hepatosplenomegaly. There is no tenderness. Ther e is no rigidity, no rebound, no guarding, no CVA tenderness, no tende rness at McBurney's point and negative Crockett's sign. Genitourinary: Cervix normal and vulva normal. Thick odorles s white yellow and vaginal discharge found. Genitourinary Comments: Cervix stenotic Neurological: She is alert and oriented to person, place, an d time. Psychiatric: Affect normal. Nursing note and vitals reviewed. ASSESSMENT/PLAN: 1. Urinary frequency - ICD9: 788.41, ICD10: R35.0 (primary d iagnosis) Urine dip is negative, will not send culture - UA DIP, URINE (POC) 2. Acute vaginitis - ICD9: 616.10, ICD10: N76.0 Will send culture for vag pathogens and gc/chlamydia testing Prescription given for metronidazole, will start if called with positive test for BV Will notify of testing If all negative and still having symptoms follow up with [facility] . - GC/CHLAMYDIA DNA DET - VAGINAL PATHOGENS DNA PROBES Diagnosis and treatment plan were discus sed and questions were answered to the patient's satisfaction. Pt a cknowledged understanding of concepts and follow up plan. Specific signs and symptoms that would indicate the ut ed for higher level of care were discussed in detail warranting prompt ER evaluatio n. Oksana Weldon, TAKE UP OPERATOR.GLOBAL CHIEF CREATIVE OFFICER Referring Provider: SELF [[id number]] Allergies As of Date: 04/02/2019 Noted Allergy Reaction PAMPRIN MULTI-SYMPTOM (ACETAMINOP*01/19/2007 2 - Rash 9 - Itching 12 - Shortness of Breath Comments: Severe itching all over body, slight rash, hyper v entilating, lips swelled badly CODEINE 02/03/2007 4 - Hives 9 - Itching LAMOTRIGINE 01/03/2017 4 - Hives NITROFURANTOIN MACROCRYSTAL 12/24/2014 16 - Unknown PROMETHAZINE-PHENYLEPHRINE 04/27/2010 5 - Intolerance Comments: Make her feel like passing out Date Reviewed: 04/02/2019 Reviewed by: Gema Barger LPN - Fully Assessed Reason for Visit: Urinary Frequency [1086] Cmt: frequency and burning with u rination x 2 week Primary Visit Diagnosis:Urinary frequency [R35.0] Other Visit Diagnosis:Acute vaginitis [N76.0] Order(s):UA DIP, URINE (POC) [7096811] Order #: [id number] ec. #:[id number] metroNIDAZOLE (FLAGYL) 500 mg tabletTake 1 tablet by mouth t wice daily.Disp: 14 tabletRfl: 0 GC/CHLAMYDIA DNA DET [SQGCCAMP] Order #: [id number] VAGINAL PATHOGENS DNA PROBES [SQVAGDNA] Order #: [id number] Prescriptions as of 04/02/2019 Sig: METRONIDAZOLE 500 MG TABLET Take 1 tablet by mouth twice * LIDOCAINE 2 % MUCOSAL SOLUTION Take 5 mL by mouth as needed. Patient not taking: Reported on 04/02/2019 IBUPROFEN 400 MG TABLET Take 1 tablet by mouth every * Patient not taking: Reported on 04/02/2019 ONDANSETRON 4 MG DISINTEGRATI* Take 1 tablet by mouth every * Patient not taking: Reported on 04/02/2019 TRAZODONE 50 MG TABLET Take 2 tablets by mouth daily* Patient not taking: Reported on 04/02/2019 ESCITALOPRAM 5 MG TABLET Take 2 tablets by mouth once * Patient not taking: Reported on 04/02/2019 SOFOSBUVIR 400 MG-VELPATASVIR* Take 1 tablet by mouth daily * Patient not taking: Reported on 07/14/2018 XANAX ORAL Take 0.5 mg by mouth as neede* Problem List As Of Date 04/02/2019 Noted Resolved Irritable bowel syndrome [K58.9] 10/27/2012 Nonallopathic lesion of lower extremities, not *INVALID FOR* 10/27/2012 ALLERGIC RHINITIS NOS [J30.9] INVALID FOR* Migraine, unspecified, with intractable migrain* 10/27/2012 Diarrhea [R19.7] Internal derangement of knee [M23.90] INVALID FOR*10/27/2012 Chronic pain [G89.29] INVALID FOR* More... Depression [F32.9] Anxiety [F41.9] ADD (attention deficit hyperactivity disorder, *INVALID FOR* Hypertension [I10] 09/11/2014 Congestive heart failure (HCC) [I50.9] 09/11/2014 Hepatitis C virus infection without hepatic com*INVALID FOR* Chronic hepatitis C without hepatic coma (HCC) *INVALID FOR* 06/15/2016 Insomnia [G47.00] INVALID FOR* Other instructions from your clinician: ASSESSMENT/PLAN: 1. Urinary frequency - ICD9: 788.41, ICD10: R35.0 (primary d iagnosis) Urine dip is negative, will not send culture - UA DIP, URINE (POC) 2. Acute vaginitis - ICD9: 616.10, ICD10: N76.0 Will send culture for vag pathogens and gc/chlamydia testing Prescription given for metronidazole, will start if called w ith positive test Will notify of testing If all negative and still having symptoms follow up with [facility] . - GC/CHLAMYDIA DNA DET - VAGINAL PATHOGENS DNA PROBES Prescriptions ordered this encounter Disp Refills Start End METRONIDAZOLE 500 MG TABLET 14 t* 0 04/02/2019 Class: Print RX Route: ORAL Sig: Take 1 tablet by mouth twice daily. Encounter Status:Closed by OKSANA WELDON CNP on 04/02/19 urinalysis routine on 2018-07-02 Appearance Nom (U) 1+ (HAZY) Normal 07-02-2018 [facility] ([id number]) Comment: Performed By: #### LURIN ### [address] [address] Bacteria LM.HPF #/area MANY None Abnormal 019 [facility] (Urine sed) System ( 25977) Comment: Performed By: #### LURIN ### [address] [address] Bilirubin Urine NEGATIVE Negative Normal 07-02-2018 [facility] (63394) Comment: Performed By: #### LURIN ### [address] [address] Color Nom (U) DARK YELLOW Normal 07-02-2018 [facility] (37609) Comment: Performed By: #### LURIN ### [address] [address] Ep Cells Urine 13-20 0-5 Normal 07-02-2018 [facility] (57407) Comment: Performed By: #### LURIN ### [address] [address] Glucose Ql (U) NEGATIVE Negative Normal 07-02-2018 [facility] (01516) Comment: Performed By: #### LURIN ### [address] [address] Hemoglobin,Urine NEGATIVE Negative Normal 07-02-2018 [facility] (83261) Comment: Performed By: #### LURIN ### [address] [address] Ketone Urine NEGATIVE Negative Normal 07-02-2018 [facility] (16369) Comment: Performed By: #### LURIN ### [address] [address] Leukocytes Esterase NEGATIVE Negative Normal 07-02-2018 [facility] (54490) Comment: Performed By: #### LURIN ### [address] [address] Nitrites Urine NEGATIVE Negative Normal 07-02-2018 [facility] (80124) Comment: Performed By: #### LURIN ### [address] [address] pH Test strip (U) 6.0 5.0-8.0 [pH] Normal 07-02-2018 [facility] (26682) Comment: Performed By: #### LURIN ### [address] [address] Protein Urine NEGATIVE Negative Normal 07-02-2018 [facility] (68162) Comment: Performed By: #### LURIN ### #[place] [address] RBC LM.HPF #/area (Urine NONE 0-3 Normal 07-02 [facility] sed) (83237) Comment: Performed By: #### LURIN ### #[place] [address] Specific [place], Ur 1.025 1.005-1.030 Normal 019 [facility] (00 000) Comment: Performed By: #### LURIN ### #[place] [address] Urobilinogen,Ur 0.2 0.0-1.0 EU/dL Normal 07-02-2018 [facility] (90165) Comment: Performed By: #### LURIN ### #[place] [address] WBC LM.HPF #/area (Urine NONE 0-5 Normal 07-02 [facility] sed) (42976) Comment: Performed By: #### LURIN ### #[place] [address] tsh on 2018-07-02 Thyrotropin Qn 1.96 0.34-4.82 uIU/mL Normal 07-02-2018 [facility] (40298) Comment: Performed By: #### LTSH #### [place] [address] rapid influenza a/b on 2018-07-02 Rapid Influenza A/B See below Negative Normal 07-02-2018 [facility] (00 000) Comment: Result Comment: Negative for influenza A and B. Performed By: #### LRFLU ### #[place] [address] mdrd egfr on 07-02 GFR/1.73 sq M >60 >60mL/min/1.73m2 mL/min/{1.73_m2} Normal [facility] [place] [facility] non-blacks MDRD (000 00) vol rate/area (S/P/Bld) Comment: Result Comment: If the patie nt is , multiply the result by 1.210. Performed By: #### LGFR #### [place] [address] hemogram/manual diff on 2018-07-02 Abs. Baso 0.00 0.00-0.08 thou/cmm Normal 07-02-2018 [facility] (00164) Comment: Performed By: #### LMCBD ### #[place] [address] Abs. Eosin 0.14 0.00-0.41 thou/cmm Normal 07-02-2018 [facility] (91242) Comment: Performed By: #### LMCBD ### #[place] [address] Abs. Lymph 3.15 1.50-3.65 thou/cmm Normal 07-02-2018 [facility] (94871) Comment: Performed By: #### LMCBD ### #[place] [address] Abs. Elk 1.10 0.20-1.00 thou/cmm High 07-02-2018 [facility] (35509) Comment: Performed By: #### LMCBD ### #[place] [address] Abs. Neut (ANC) 9.31 3.00-5.67 thou/cmm High 07-02-2018 [facility] (07289) Comment: Performed By: #### LMCBD ### #[place] [address] Basophil 0.0 % Normal 07-02-2018 [facility] (36800) Comment: Performed By: #### LMCBD ### #[place] [address] Diff Type Manual Diff Normal 07-02-2018 [facility] (38546) Comment: Performed By: #### LMCBD ### #[place] [address] Eosinophil 1.0 % Normal 07-02-2018 [facility] (48979) Comment: Performed By: #### LMCBD ### #[facility], [place] [address] Lymphocyte 23.0 % Normal 07-02-2018 [facility] (94803) Comment: Performed By: #### LMCBD ### #[facility], [place] [address] Monocyte 8.0 % Normal 07-02-2018 [facility] (86456) Comment: Performed By: #### LMCBD ### [address] [address] Platelet Estimate Normal Normal 07-02-2018 [facility] (29874) Comment: Performed By: #### LMCBD ### [address] [address] RBC Morphology Normal Normal 07-02-2018 [facility] (06444) Comment: Performed By: #### LMCBD ### [address] [address] Seg Neutrophil 68.0 % Normal 07-02-2018 [facility] (95997) Comment: Performed By: #### LMCBD ### #[place] [address] Erythrocyte distribution 12.0 11.5-15.9 % Normal 07-02 [facility] width Auto Ratio (RBC) System (97545) Comment: Performed By: #### LMCBD ### #[place] [address] Hct 39.1 37.0-47.0 % Normal 07-02-2018 [facility] (47453) Comment: Performed By: #### LMCBD ### #[place] [address] Hgb 13.5 12.0-16.0 g/dL Normal 07-02-2018 [facility] (05418) Comment: Performed By: #### LMCBD ### [address] [place], [place] [address] MCH 32.1 27.0-31.0 pg High 07-02-2018 [facility] (39174) Comment: Performed By: #### LMCBD ### #[facility], [place] [address] MCHC 34.5 32.0-36.0 % Normal 07-02-2018 [facility] (04232) Comment: Performed By: #### LMCBD ### #[facility], [place] [address] MCV 92.9 81.0-99.0 fl Normal 07-02-2018 [facility] (09026) Comment: Performed By: #### LMCBD ### #[facility], [place] [address] MPV 10.3 7.1-10.5 fl Normal 07-02-2018 [facility] (21752) Comment: Performed By: #### LMCBD ### [address] [address] Platelet 256 150-400 thou/cmm Normal 07-02-2018 [facility] (49835) Comment: Performed By: #### LMCBD ### [address] [address] RBC Test strip #/vol 4.21 4.20-5.40 mil/cmm Normal 9 [facility] (00 000) Comment: Performed By: #### LMCBD ### [address] [address] WBC 13.7 4.8-10.8 thou/cmm High 07-02-2018 [facility] (89841) Comment: Performed By: #### LMCBD ### [address] [address] cult urine on 07-02 Cult Urine Test performed at [facility] Normal 07-02-2018 [facility] No growth System (00 000) Comment: Performed By: #### C_URI ### #[facility], [place] [address] cpk on 2018-07-02 CPK 539 26-192 U/L High 07-02-2018 [facility] (70260) Comment: Performed By: #### LCK ####A [facility], [place] [address] basic panel on 2018 Anion gap 3 molar conc 8 8-20 mmol/L Normal 019 [facility] (72744) Comment: Performed By: #### LP8 ####A [facility], [place] [address] Calcium mass conc 8.9 8.5-10.1 mg/dL Normal 07-02-2018 [facility] (18397) Comment: Performed By: #### LP8 ####A [facility], [place] [address] Chloride molar conc 104 98-107 mEq/L Normal 07-02-2018 [facility] (64882) Comment: Performed By: #### LP8 ####A [facility], [place] [address] CO2 molar conc 27 21-32 mEq/L Normal 07-02-2018 [facility] (45700) Comment: Performed By: #### LP8 ####A [facility], [place] [address] Creatinine mass conc 0.87 0.51-0.95 mg/dL Normal 9 [facility] (00 000) Comment: Performed By: #### LP8 ####A [facility], [place] [address] Glucose mass conc 89 70-99 mg/dL Normal 07-02-2018 [facility] (19693) Comment: Performed By: #### LP8 ####A [address] [address] Potassium molar conc 3.5 3.5-5.1 mEq/L Normal 9 [facility] (10440) Comment: Performed By: #### LP8 ####A [facility], [place] [address] Sodium molar conc 136 136-145 mEq/L Normal 07-02-2018 [facility] (43556) Comment: Performed By: #### LP8 ####A [facility], [place] [address] Urea nitrogen mass conc 11 7-25 mg/dL Normal 2018 [facility] (00 000) Comment: Performed By: #### LP8 ####A [facility], [place] [address] Urea nitrogen/Creatinine mass 13 10-20 mg/mg Normal 07-02-2018 [facility] ratio System (00 000) Comment: Performed By: #### LP8 ####A [address] [address] foot 3v ap/lat/obl left on 2018-01-30 FOOT 3V AP/LAT/OBL Performed at [facility] 01-30-2018 [facility] APPROVED BY: [facility] Jonh Landry MD EXAM ([id number]) TITLE: THREE VIEWS OF THE LEFT FOOT DATE:01/30/2018 12:40 COMPARISON: None. CLINICAL INDICATION/HISTORY: Pain and swelling TECHNIQUE: AP, lateral and oblique images FINDINGS: No fracture or dislocation is seen. Osseous relationships are maintained on this nonweightbearing study. No suspicious osseous lesions. Joint spaces are preserved. IMPRESSION: Negative foot x-ray us transvaginal on 2018-01-23 US TRANSVAGINAL Performed at [facility] 01-23-2018 [facility] APPROVED BY: [facility] Adry Cabrera MD ( [id number]) EXAMINATION: TRANSVAGINAL AND LIMITED TRANSABDOMINAL PELVIC ULTRASOUND CLINICAL HISTORY: Pelvic pain TECHNIQUE: Sonography of the pelvis was performed by transvaginal and transabdominal (limited) techniques. Images were obtained and stored in a permanent archive.MQ: [id number] COMPARISON: CAT scan performed earlier today RESULT: Uterus size: 8.6 x 4.8 x 6 cm -Orientation: Anteverted -Myometrium: Near the fundus of the uterus, a low-attenuation intramural mass measuring 1.6 x 1 x 0.7 cm. At the right side of the mid uterine body, a low-attenuation mass measures 0.8 x 0.6 x 0.5 cm. These are likely fibroids. To the right of midline near the uterine fundus, there is a cyst measuring 9 mm. -Endometrial echo complex: 0.7 cm -Cervix: normal Right ovary: 3.3 by 2 x 2 0.6 cm Normal sonographic appearance. Left ovary: Surgically absent Pelvis free fluid: Trace free fluid is noted in the pelvis. This is likely physiologic in nature. IMPRESSION: Status post left oophorectomy Small uterine fibroids and small uterine cyst. us pelvis non-ob complete on 2018-01-23 US PELVIS NON-OB Performed at [facility] 01-23-2018 [facility] APPROV[facility] BY: Adry Cabrera MD ([id number]) EXAMINATION: TRANSVAGINAL AND LIMITED TRANSABDOMINAL PELVIC ULTRASOUND CLINICAL HISTORY: Pelvic pain TECHNIQUE: Sonography of the pelvis was performed by transvaginal and transabdominal (limited) techniques. Images were obtained and stored in a permanent archive.MQ: [id number] COMPARISON: CAT scan performed earlier today RESULT: Uterus size: 8.6 x 4.8 x 6 cm -Orientation: Anteverted -Myometrium: Near the fundus of the uterus, a low-attenuation intramural mass measuring 1.6 x 1 x 0.7 cm. At the right side of the mid uterine body, a low-attenuation mass measures 0.8 x 0.6 x 0.5 cm. These are likely fibroids. To the right of midline near the uterine fundus, there is a cyst measuring 9 mm. -Endometrial echo complex: 0.7 cm -Cervix: normal Right ovary: 3.3 by 2 x 2 0.6 cm Normal sonographic appearance. Left ovary: Surgically absent Pelvis free fluid: Trace free fluid is noted in the pelvis. This is likely physiologic in nature. IMPRESSION: Status post left oophorectomy Small uterine fibroids and small uterine cyst. mdrd egfr on 01-23 GFR/1.73 sq M >60 >60mL/min/1.73m2 mL/min/{1.73_m2} Normal [facility] predicted among [facility] non-blacks MDRD (000 00) vol rate/area (S/P/Bld) Comment: Result Comment: If the patie nt is , multiply the result by 1.210. Performed By: #### LGFR #### [address] [address] macroscopic urinalysis on 2018-01-23 Appearance Nom (U) CLEAR Normal 01-23-2018 [facility] ([id number]) Comment: Performed By: #### LMACU ### [address] [address] Bilirubin Urine NEGATIVE Negative Normal 01-23-2018 [facility] ([id number]) Comment: Performed By: #### LMACU ### [address] [address] Color Nom (U) STRAW Normal 01-23-2018 [facility] (60826) Comment: Performed By: #### LMACU ### [address] [address] Glucose Ql (U) NEGATIVE Negative Normal 01-23-2018 [facility] ([id number]) Comment: Performed By: #### LMACU ### [address] [address] Hemoglobin,Urine NEGATIVE Negative Normal 01-23-2018 [facility] ([id number]) Comment: Performed By: #### LMACU ### [address] [address] Ketone Urine NEGATIVE Negative Normal 01-23-2018 [facility] (51798) Comment: Performed By: #### LMACU ### [address] [address] Leukocytes Esterase NEGATIVE Negative Normal 01-23-2018 [facility] (93070) Comment: Performed By: #### LMACU ### [address] [address] Nitrites Urine NEGATIVE Negative Normal 01-23-2018 [facility] ([id number]) Comment: Performed By: #### LMACU ### [address] [address] pH Test strip (U) 6.5 5.0-8.0 [pH] Normal 01-23-2018 [facility] (48669) Comment: Performed By: #### LMACU ### #[facility] [place] [address] Protein Urine NEGATIVE Negative Normal 01-23-2018 [facility] ([id number]) Comment: Performed By: #### LMACU ### #[place] [address] Specific [place], Ur <=1.005 1.005-1.030 Normal 018 [facility] (00 000) Comment: Performed By: #### LMACU ### #[place] [address] Urobilinogen,Ur 0.2 0.0-1.0 EU/dL Normal 01-23-2018 [facility] (14000) Comment: Performed By: #### LMACU ### #[place] [address] hemogram/manual diff on 2018-01-23 Abs. Baso 0.17 0.00-0.08 thou/cmm High 01-23-2018 [facility] (31641) Comment: Performed By: #### LMCBD ### #[place] [address] Abs. Eosin 0.00 0.00-0.41 thou/cmm Normal 01-23-2018 [facility] (73063) Comment: Performed By: #### LMCBD ### #[place] [address] Abs. Lymph 2.22 1.50-3.65 thou/cmm Normal 01-23-2018 [facility] (73023) Comment: Performed By: #### LMCBD ### #[place] [address] Abs. [place] 2.05 0.20-1.00 thou/cmm High 01-23-2018 [facility] (45010) Comment: Performed By: #### LMCBD ### #[place] [address] Abs. Neut (ANC) 12.66 3.00-5.67 thou/cmm High 01-23-2018 [facility] (90122) Comment: Performed By: #### LMCBD ### #[facility] [place] [address] Basophil 1.0 % Normal 01-23-2018 [facility] (47598) Comment: Performed By: #### LMCBD ### #[place] [address] Eosinophil 0.0 % Normal 01-23-2018 [facility] (88543) Comment: Performed By: #### LMCBD ### #[place] [address] Lymphocyte 13.0 % Normal 01-23-2018 [facility] ([id number]) Comment: Performed By: #### LMCBD ### #[place] [address] Monocyte 12.0 % Normal 01-23-2018 [facility] ([id number]) Comment: Performed By: #### LMCBD ### #[place] [address] Platelet Estimate Normal Normal 01-23-2018 [facility] ([id number]) Comment: Performed By: #### LMCBD ### #[place] [address] RBC Morphology Normal Normal 01-23-2018 [facility] (16846) Comment: Performed By: #### LMCBD ### #[place] [address] Seg Neutrophil 74.0 % Normal 01-23-2018 [facility] (57314) Comment: Performed By: #### LMCBD ### #[place] [address] Diff Type Manual Diff Normal 01-23-2018 [facility] (64566) Comment: Performed By: #### LMCBD ### #[place] [address] Erythrocyte distribution 11.6 11.5-15.9 % Normal 01-23 [facility] width Auto Ratio (RBC) System ([id number]) Comment: Performed By: #### LMCBD ### #[place] [address] Hct 40.8 37.0-47.0 % Normal 01-23-2018 [facility] (07937) Comment: Performed By: #### LMCBD ### #[place] [address] Hgb 14.2 12.0-16.0 g/dL Normal 01-23-2018 [facility] (24099) Comment: Performed By: #### LMCBD ### #[place] [address] MCH 31.8 27.0-31.0 pg High 01-23-2018 [facility] ([id number]) Comment: Performed By: #### LMCBD ### #[place] [address] MCHC 34.8 32.0-36.0 % Normal 01-23-2018 [facility] (32099) Comment: Performed By: #### LMCBD ### #[place] [address] MCV 91.3 81.0-99.0 fl Normal 01-23-2018 [facility] (51739) Comment: Performed By: #### LMCBD ### #[place] [address] MPV 10.0 7.1-10.5 fl Normal 01-23-2018 [facility] (43460) Comment: Performed By: #### LMCBD ### #[place] [address] Platelet 263 150-400 thou/cmm Normal 01-23-2018 [facility] (33425) Comment: Performed By: #### LMCBD ### #[place] [address] RBC Test strip #/vol 4.47 4.20-5.40 mil/cmm Normal 8 [facility] (00 000) Comment: Performed By: #### LMCBD ### #[facility], [place] [address] WBC 17.1 4.8-10.8 thou/cmm High 01-23-2018 [facility] ([id number]) Comment: Performed By: #### LMCBD ### #[facility], [place] [address] ct abdomen and pelvis w/o contrast on 2018-01-23 CT ABDOMEN AND Performed at [facility] 01-23-2018 [facility] APPROVED BY: [employer] CONTRAST Adry Cabrera MD Exam Title: ([id number]) CT OF THE ABDOMEN AND PELVIS WITHOUT INTRAVENOUS CONTRAST EXAM DATE:01/23/2018 17:42 Clinical Indication/History: Right flank pain COMPARISON: 10/25/2007 Technique: A CT of the abdomen and pelvis without Intravenous contrast. In the absence of intravenous contrast, there is decreased sensitivity for detecting infectious, neoplastic, visceral, and vascular abnormalities.Contrast: 0 mL IVCT Dose-Length Product: 930 mGy*cmCT Dose Reduction Employed: 1. Automated exposure control (AEC) was used. FINDINGS:CHEST BASE:Normal LIVER: Normal BILIARY TRACT AND GALLBLADDER:Normal PANCREAS:Normal SPLEEN:Normal ADRENAL GLANDS:Normal KIDNEYS AND RENAL COLLECTING SYSTEMS:Normal LYMPH NODES AND RETROPERITONEUM:Normal VESSELS:Normal GI TRACT AND MESENTERY: There is some high attenuation material within an otherwise normal-appearing appendix suggesting some calcium. Otherwise, there are no apparent abnormalities of the GI tract. SOFT TISSUES AND MUSCULOSKELETAL:Normal BLADDER:Normal PELVIC ORGANS: Right adnexal surgical clip is noted. There had been more clips on the previous exam suggesting tubal ligation. These clips have apparently been removed. IMPRESSION: Within the limits of a noncontrast examination, there is no acute process involving the abdomen or pelvis. Specifically, there is no hydronephrosis. Small amount of calcific material within the appendix but there are no signs of appendicitis otherwise. comprehensive panel on 2018-01-23 Albumin mass conc 4.0 3.4-5.0 g/dL Normal 01-23-[address] [facility] (12930) Comment: Performed By: #### LP14 #### [facility], [place] [address] ALP enzyme act/vol 63 46-116 U/L Normal 01-23-2018 [facility] (09651) Comment: Performed By: #### LP14 #### [address] [address] ALT-SGPT Blood 41 14-63 U/L Normal 01-23-2018 [facility] (09514) Comment: Performed By: #### LP14 #### [address] [address] Anion gap 3 molar conc 12 8-20 mmol/L Normal 018 [facility] (12911) Comment: Performed By: #### LP14 #### [address] [address] AST-SGOT Blood 29 15-37 U/L Normal 01-23-2018 [facility] (77790) Comment: Performed By: #### LP14 #### [address] [address] Bilirubin Ql (U) 0.6 0.2-1.0 mg/dL Normal 01-23-2018 [facility] (41980) Comment: Performed By: #### LP14 #### [address] [address] Calcium mass conc 8.9 8.5-10.1 mg/dL Normal 01-23-2018 [facility] (76819) Comment: Performed By: #### LP14 #### [address] [address] Chloride molar conc 93 98-107 mEq/L Low 01-23-2018 [facility] (80538) Comment: Performed By: #### LP14 #### [address] [address] CO2 molar conc 24 21-32 mEq/L Normal 01-23-2018 [facility] (44548) Comment: Performed By: #### LP14 #### [address] [place] [address] Creatinine mass conc 0.69 0.51-0.95 mg/dL Normal 8 [employer] [facility] (00 000) Comment: Performed By: #### LP14 #### [facility], [place] [address] Glucose mass conc 69 70-99 mg/dL Low 01-23-2018 [employer] [facility] (44630) Comment: Performed By: #### LP14 #### [facility], [place] [address] Potassium molar conc 3.7 3.5-5.1 mEq/L Normal 8 [facility] (41003) Comment: Performed By: #### LP14 #### [address] [address] Protein mass conc 7.5 6.4-8.2 g/dL Normal 01-23-[address] [facility] [employer] [facility] (31078) Comment: Performed By: #### LP14 #### [address] [address] Sodium molar conc 125 136-145 mEq/L Low 01-23-[address] [facility] [employer] [facility] (59441) Comment: Performed By: #### LP14 #### [address] [address] Urea nitrogen mass conc 7 7-25 mg/dL Normal 2017 [employer] [facility] (d[facility] (00 000) Comment: Performed By: #### LP14 #### [address] [address] Urea nitrogen/Creatinine mass 10 10-20 mg/mg Normal 01-23-2018 [facility] ratio System (00 000) Comment: Performed By: #### LP14 #### [address] [address] chlam/gc-dna amplified on 2018-01-23 Chlam/GC-DNA Test performed at [facility] CenterChlamydia trachomatis (72414) DNA NOT DETECTEDNeisseria gonorrhoeae DNA NOT DETECTEDReference range NOT DETECTEDMethod: Strand Displacement Amplification-BD ProbeTec AssayComment: A negative result does not precludeC.trachomatis or N. gonorrhoeae infection becauseresults are dependent on adequate specimen collection,absence of inhibitors, and sufficient DNA to be detected. Comment: Performed By: #### CTGCA ### #[facility], [place] [address] Encounters Date Type Reason Provider Location 10-19-2018 - Emergency GEORGETTE RODRIGUEZ [facility] 10-20-2018 department patient [facility] Medical C enter visit ([id number]) 07-02-2018 - Emergency CHRISTOPHER MICHAEL [facility] 07-02-2018 department patient [facility] Medical C enter visit ([id number]) 12-15-2017 Emergency Other specified [facility] department patient noninflammatory UNKNOWN PROVIDER Sy stem ([id number]) visit disorders of vagina Maile Shawn Payers Payer Name Policy Number Location [facility] ([id number]) The following information is from the original human readable contentNo Payer Records FoundNo Payer Records FoundNo Payer Records FoundNo Payer Records FoundNo Payer Records Found Summary Purpose Family History No Family History Records FoundNo Family History Records FoundNo Family History Records FoundNo Family History Records Found Advance Directives No Advanced Directives Records FoundNo Advanced Directives Records FoundNo Advanced Directives Records FoundNo Advanced Directives Records Found Additional Source Comments FOR RECORDS PERTAINING TO PATIENTS WHO ARE OR HAVE BEEN ENROLLED IN A CHEMICAL DEPENDENCY/SUBSTANCE ABUSE PROGRAM, SOME INFORMATION MAY BE OMITTED. This clinical summary was aggregated from multiple sources. Caution should be exercised in using it in the provision of clinical care. This summary normalizes information from multiple sources, and as a consequence, information in this document may materially changethe coding, format and clinical context of patient data. In addition, data may be omittedin some cases. CLINICAL DECISIONS SHOULD BE BASED ON THE PRIMARY CLINICAL RECORDS. [facility] provides no warranty or guarantee of the accuracy or completeness of information in this document. UNRECOGNIZED CONTENT PROVIDED BELOW FOR UNRECOGNIZED SECTION INFORMATION SOURCE DATE CREATED AUTHOR AUTHOR'S ORGANIZATIO N 12/21/2017 [facility] DATE CREATED AUTHOR AUTHOR'S ORGANIZATIO N 07/04/2018 [facility] DATE CREATED AUTHOR AUTHOR'S ORGANIZATIO N 10/21/2018 [facility] DATE CREATED AUTHOR AUTHOR'S ORGANIZATIO N 01/18/2020 [facility] Paul pedro
--- OUTSIDE RECORDS SUMMARY | 2020-04-13 13:55 | XMS RPT_ITS | CCD ---
:1980 External Reference #:[id number] Author Organization [facility] Care Team Providers Name Role Phone Edison Cedillo Unavailable Unavailable PROVIDER, UNKNOWN Unavailable Unavailable Maile Escobar Unavailable Unavailable GEORGETTE LINDER Attending Unavailable MICHAEL LINDER Attending Unavailable Allergies Reported Allergen Reaction(s) Severity Date of Onset Location YBWLKRUELZAAA-DWYRMSYJ-BMMI Unknown 01-19-2007 - [facility] Other VOGT Translations: [ [place] R epository [id number]-ZXJYCLVL-YOHE VOGT] Codeine Translations: [ Unknown 02-03-2007 - [facility] Other CODEINE] [place] Reposito ry lamoTRIgine Translations: [ Unknown 01-03-2017 - [facility] Other LAMOTRIGINE] [place] Reposito ry Nitrofurantoin Unknown 12-24-2014 [facility] [place] Other Translations: [ [place] Repos itory NITROFURANTOIN MACROCRYSTAL] PROMETHAZINE-PHENYLEPHRINE Unknown 04-27-2010 [facility] Other Translations: [ [place] Repos itory PROMETHAZINE-PHENYLEPHRINE] Problems Active Problems Category Problem Name Status Date Location Allergic reactions Allergy status to other [facility] and Syste m (91864) biological substances status Other female genital Other specified Active 12-15-2017 [facility] Health disorders noninflammatory System (0000 0) disorders of vagina Other gastrointestinal Constipation, Active 10-19-2018 - [place] [facility] unspecified [facility] (23752) Other infections Personal history of Active 12-15-2017 - [facility] a Health other infectious and System (50481) parasitic diseases Substance-related Nicotine dependence, Active 12-15-2017 - [facility] Health disorders unspecified, System (05966) uncomplicated Unclassified 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, unilateral System ( 98457) Past or Other Problems Category Problem Name Status Date Location Abdominal pain Generalized abdominal Completed 07-02-2018 - [place] [facility] pain [facility] (84432) Headache; including Headache Completed 07-02-2018 - [place] [facility] migraine [facility] (53656) Other connective Rhabdomyolysis Completed 07-02-2018 - [place] [facility] tissue disease [facility] Cent[facility] r (38990) Viral infection Viral infection, Completed 07-02-2018 - [place] [facility] unspecified [facility] (23837) Results Result Name Value Range Unit Interpretation Flag Date Location progress on 2019-12 PROGRESS HNO ID: [id number] Normal 01-10-2020 [facility] Author: Norma (Boring Inspector) Hubert Latif ([id number]) Service: ? Author Type: Nurse Specialist Type: [...] health concerns. She has been following at [facility]. Have recieved outside records and [...] Continue to monitor. Letter provided. Norma Gaspar APRN.[facility] There are no Patient Instructions on file for this visit. Norma Gaspar APRN.RICHARD cnpn on 2020-01-07 CNPN Telephone (INTMWS) Normal 01-07-[address] [place] [facility] PAT KNIGHT ([id number]) 1980 [facility] Date Time Provider Department (70238) 01/07/20 MAILE MARIO INTMWS During your visit [...] Signed Patient had visit. Letter provided. See CloudOpt message Allergies As of Date: 01/07/2020 Noted [...] 01/10/20 progress on 2019-11 PROGRESS HNO ID: [id number] Normal 12-05-2019 [place] Author: Louis Brewer) [facility] Service: ? [place] Author Type: Nurse Practitioner ([id number]) Type: Progress Notes Filed: 12/05/2019 11:18 AM [...] TONSILS,<12 Y/O 1985 Tonsillectomy ALLERGIES Pamprin Multi-Symptom [Vxczfkbwmnevl-Tfuzjnug-Lzsu vogt]; Codeine; Lamotrigine; Nitrofurantoin Macrocrystal; Promethazine-Pheny lephrine [...] Maternal Grandfather BLADDER - Heart Maternal Grandfather [place] AND EMPHYSEMA Social History Tobacco Use - [...] 2019-12-05 CNOV Office Visit (UCWSTR) Normal 12-05-19 [place] PAT Stark ([id number]) 1980 [facility] Date Time Provider Department ([id number]) 12/05/19 10:30 AM LOUIS DE PAZ (LUIS [...] - EGD W/O OR W/BRUSH/WASH 11/01/11 EGD [facility] inpt H-pylori negative - INCISION EARDRUM,ASPIR,GEN ANESTH 1994 Myringotomy/tubes - LIGATE FALLOPIAN TUBE 04/09/2006 Tubal ligation - REMOVAL ADENOIDS,PRIMARY,<12 Y/O Adenoidectomy - REMOVAL OF OVARY(S) left - REMOVAL OF TONSILS,<12 Y/O 1985 Tonsillectomy ALLERGIES Pamprin Multi-Symptom [Uxrnjjyusppiz-Oncismkp-Wsgl vogt]; Codeine; Lamotrigine; Nitrofurantoin Macrocrystal; Promethazine-Pheny lephrine [...] Maternal Grandfather BLADDER - Heart Maternal Grandfather MN AND EMPHYSEMA Social History Tobacco Use - [...] TABLET Agrees to plan Louis De Paz APRN.MACHINERY ERECTOR Referring Provider: SELF [200] Allergies As of [...] on 2019-10-04 CNPN Telephone (UCWSTR) Normal 10-04-[address] [place] [facility] PAT KNIGHT ([id number]) 1980 [facility] Date Time Provider Department (77888) 10/04/19 TERRI RANDHAWA) UCWSTR During your visit [...] DNA Negative for Negative for Normal 0 [facility] Probe Radha species Radha species [place] (84697) by DNA Probe by DNA Probe Comment: Performed By: #### VAGDNA ## ## [facility] [address] [place] [phone] Jeremy vag Positive for Negative for Critically 10-01-2019 [facility] DNA Probe Gardnerella Gardnerella abnormal Clinic vaginalis by DNA vaginalis by DNA [place] probe. Probe (26303) Comment: Result Comment: This is sugg estive, but not diagnostic of bacterial vaginosis, results should be interpreted in conjunction with other data such as pH, amine odor, clue cell s and vaginal discharge characteristics. Performed By: #### VAGDNA ## ## [facility] [address] [place] [phone] Trich vag DNA Negative for Negative for Normal 10-01-2019 [facility] Probe Trichomonas Trichomonas Clevel and vaginalis by DNA vaginalis by DNA ([id number]) Probe Probe Comment: Performed By: #### VAGDNA ## ## [facility] [address] [place] [phone] urine culture on 14-10-05 Bacteria identified Sp. Request/Comment: - Specimen received in pre servative Normal 10-01-2019 [facility] Cx Nom (U) [place] (08521) Culture Result - <10,000 CFU/ml Normal urogenital juan f Comment: Performed By: #### URCUL ### # [facility] [place] [phone] progress on 2019-09 PROGRESS HNO ID: [id number] Normal 10-01-2019 [place] Author: Andrade ([facility]) [facility] Service: ? [place] Author Type: Nurse Practitioner ([id number]) Type: Progress Notes Filed: 10/01/2019 4:04 PM [...] TONSILS,<12 Y/O 1985 Tonsillectomy ALLERGIES Pamprin Multi-Symptom [Njinsusnagfql-Tstwcncl-Grvo vogt]; Codeine; Lamotrigine; Nitrofurantoin Macrocrystal; Promethazine-Pheny lephrine [...] Maternal Grandfather BLADDER - Heart Maternal Grandfather MN AND EMPHYSEMA Social History Tobacco Use - [...] and manag ement. ER Passport completed for [facility] and patient will self t ransport. - UA DIP, URINE (POC) - URINE CULTURE - VAGINAL PATHOGENS DNA PROBES - GC/CHLAMYDIA DNA DET Andrade Reddy, SCHOOL BASED THERAPIST.MACHINERY ERECTOR gc/chlamydia amplif on 2019-10-01 Chlamydia Amplif Negative for Chlamydia Normal 10-01-2019 [facility] trachomatis by Arturo farah ([id number]) amplification. Comment: Performed By: #### GCCT #### [facility] [address] [place] [address] GC Amplification Negative for Neisseria Normal 10-01-2019 [facility] gonorrhoeae by Arturo farah ([id number]) amplification. Comment: Performed By: #### GCCT #### [facility] [address] [place] [address] GC/Chlam Amp Source Cervix Normal 10-01-2019 [facility] (85849) Comment: Performed By: #### GCCT #### [facility] [address] [place] [address] cnov on 2019-10-01 CNOV Office Visit (UCWSTR) Normal 10-01-19 20 [place] PAT Stark ([id number]) 1980 F [place] Date Time Provider Department (51616) 10/01/19 3:30 PM ANDRADE REDDY (LUIS DANIEL) [...] - EGD W/O OR W/BRUSH/WASH 11/01/11 EGD [facility] inpt H-pylori negative - INCISION EARDRUM,ASPIR,GEN ANESTH 1994 Myringotomy/tubes - LIGATE FALLOPIAN TUBE 04/09/2006 Tubal ligation - REMOVAL ADENOIDS,PRIMARY,<12 Y/O Adenoidectomy - REMOVAL OF OVARY(S) left - REMOVAL OF TONSILS,<12 Y/O 1988 Tonsillectomy ALLERGIES Pamprin Multi-Symptom [Uqqoisflcuikg-Dbtbzrgh-Lrui vogt]; Codeine; Lamotrigine; Nitrofurantoin Macrocrystal; Promethazine-Pheny lephrine [...] Maternal Grandfather BLADDER - Heart Maternal Grandfather MN AND EMPHYSEMA Social History Tobacco Use - [...] and manag ement. ER Passport completed for [facility] and patient will self t ransport. - UA DIP, URINE (POC) - URINE CULTURE - VAGINAL PATHOGENS DNA PROBES - GC/CHLAMYDIA DNA DET Andrade Reddy APRN.MACHINERY ERECTOR Referring Provider: SELF [200] Allergies As of [...] in female [R10.2] Order(s):UA DIP, URINE (POC) [[id number]] Order #: [id number] ec. #:[id number] URINE CULTURE [SQURCUL] Order #: [id number] VAGINAL PATHOGENS DNA PROBES [SQVAGDNA] Order #: [id number] GC/CHLAMYDIA DNA DET [SQGCCAMP] Order #: [id number] Prescriptions as of 10/01/2019 Sig: TRAZODONE 100 [...] DNA Negative for Negative for Normal 9 [facility] Probe Radha species Radha species Latif (84075) by DNA Probe by DNA Probe Comment: Performed By: #### VAGDNA ## ## [facility] [address] [place] [address] Jeremy vag Positive for Negative for Critically 04-02-2019 [facility] DNA Probe Gardnerella Gardnerella abnormal Clinic vaginalis by DNA vaginalis by DNA Latif probe. Probe (00734) Comment: Result Comment: This is sugg estive, but not diagnostic of bacterial vaginosis, results should be interpreted in conjunction with other data such as pH, amine odor, clue cell s and vaginal discharge characteristics. Performed By: #### VAGDNA ## ## [facility] [address] [place] [address] Trich vag DNA Negative for Negative for Normal 04-02-2019 [facility] Probe Trichomonas Trichomonas Clevel and vaginalis by DNA vaginalis by DNA (29357) Probe Probe Comment: Performed By: #### VAGDNA ## ## [facility] [address] [place] [address] progress on 2019-03 PROGRESS HNO ID: [id number] Normal 04-02-2019 [facility] Author: Oksana teresa ([id number]) Service: ? Author Type: Nurse Practitioner Type: [...] file Gets together: Not on file Attends confucianism service: Not on file Active member of [...] have confirmed and edited as necessary, the [facility] Review of Systems Constitutional: Negative for [...] and still having symptoms follow up with COMMUNICATIONS PROFESSOR . - GC/CHLAMYDIA DNA DET - VAGINAL PATHOGENS DNA PROBES Diagnosis and treatment plan were discussed and questions we re answered to the patient's satisfaction. Pt acknowledged understanding of concepts and follow up plan. Specific signs and symptoms that would indicate the need for higher level of care were discussed in detail warranting prompt ER evalua tion. Oksana Weldon APRN.MACHINERY ERECTOR gc/chlamydia amplif on 2019-04-02 Chlamydia Amplif Negative for Chlamydia Normal 04-02-2019 [facility] trachomatis by Arturo farah ([id number]) amplification. Comment: Performed By: #### GCCT #### [facility] [address] [place] [address] GC Amplification Negative for Neisseria Normal 04-02-2019 [facility] gonorrhoeae by Arturo farah (14269) amplification. Comment: Performed By: #### GCCT #### [facility] [address] [place] [address] GC/Chlam Amp Source Cervix Normal 04-02-2019 [facility] (42071) Comment: Performed By: #### GCCT #### [facility] [address] [place], [place] [address] cnov on 2019-04-02 CNOV Office Visit (UCWSTR) Normal 04-02-[address] [place] [facility] PAT KNIGHT ([id number]) 1980 [facility] Date Time Provider Department (67089) 04/02/19 2:00 PM OKSANA WELDON WSTR During [...] and still having symptoms follow up with COMMUNICATIONS PROFESSOR . - GC/CHLAMYDIA DNA DET - VAGINAL PATHOGENS DNA PROBES Oksana Wledon APRN.CNP 04/02/2019 2:35 PM Signed Subjective HPI [...] file Gets together: Not on file Attends confucianism service: Not on file Active member of [...] have confirmed and edited as necessary, the [facility] Review of Systems Constitutional: Negative for [...] and still having symptoms follow up with COMMUNICATIONS PROFESSOR . - GC/CHLAMYDIA DNA DET - VAGINAL PATHOGENS DNA PROBES Diagnosis and treatment plan were discus sed and questions were answered to the patient's satisfaction. Pt a cknowledged understanding of concepts and follow up plan. Specific signs and symptoms that would indicate the ca ed for higher level of care were discussed in detail warranting prompt ER evaluatio n. Oksana Weldon, SCHOOL BASED THERAPIST.MACHINERY ERECTOR Referring Provider: SELF [200] Allergies As of [...] Diagnosis:Acute vaginitis [N76.0] Order(s):UA DIP, URINE (POC) [[id number]] Order #: [id number] ec. #:[id number] metroNIDAZOLE (FLAGYL) 500 mg tabletTake 1 tablet by mouth t wice daily.Disp: 14 tabletRfl: 0 GC/CHLAMYDIA DNA DET [SQGCCAMP] Order #: [id number] VAGINAL PATHOGENS DNA PROBES [SQVAGDNA] Order #: [id number] Prescriptions as of 04/02/2019 Sig: METRONIDAZOLE 500 [...] and still having symptoms follow up with COMMUNICATIONS PROFESSOR . - GC/CHLAMYDIA DNA DET - VAGINAL PATHOGENS DNA PROBES Prescriptions ordered this encounter Disp Refills Start End METRONIDAZOLE 500 MG TABLET 14 t* 0 04/02/2019 Class: Print RX Route: ORAL Sig: Take 1 tablet by mouth twice daily. Encounter Status:Closed by OKSANA WELDON CNP on 04/02/19 urinalysis routine on 2018-07-02 Appearance Nom (U) 1+ (HAZY) Normal 07-02-2018 [facility] (32778) Comment: Performed By: #### LURIN ### [address] [address] Bacteria LM.HPF #/area MANY None Abnormal 019 [facility] (Urine sed) System ( 53189) Comment: Performed By: #### LURIN ### [address] [address] Bilirubin Urine NEGATIVE Negative Normal 07-02-2018 [facility] (30130) Comment: Performed By: #### LURIN ### [address] [address] Color Nom (U) DARK YELLOW Normal 07-02-2018 [facility] (92156) Comment: Performed By: #### LURIN ### [address] [address] Ep Cells Urine 13-20 0-5 Normal 07-02-2018 [facility] (80924) Comment: Performed By: #### LURIN ### [address] [address] Glucose Ql (U) NEGATIVE Negative Normal 07-02-2018 [facility] (58838) Comment: Performed By: #### LURIN ### [address] [address] Hemoglobin,Urine NEGATIVE Negative Normal 07-02-2018 [facility] (27204) Comment: Performed By: #### LURIN ### [address] [address] Ketone Urine NEGATIVE Negative Normal 07-02-2018 [facility] (26652) Comment: Performed By: #### LURIN ### [address] [address] Leukocytes Esterase NEGATIVE Negative Normal 07-02-2018 [facility] (83108) Comment: Performed By: #### LURIN ### [address] [address] Nitrites Urine NEGATIVE Negative Normal 07-02-2018 [facility] (52448) Comment: Performed By: #### LURIN ### [address] [address] pH Test strip (U) 6.0 5.0-8.0 [pH] Normal 07-02-2018 [facility] (82675) Comment: Performed By: #### LURIN ### [address] [address] Protein Urine NEGATIVE Negative Normal 07-02-2018 [facility] (56395) Comment: Performed By: #### LURIN ### #[place] [address] RBC LM.HPF #/area (Urine NONE 0-3 Normal 07-02 [facility] sed) (25676) Comment: Performed By: #### LURIN ### #[place] [address] Specific David, Ur 1.025 1.005-1.030 Normal 019 [facility] (00 000) Comment: Performed By: #### LURIN ### #[place] [address] Urobilinogen,Ur 0.2 0.0-1.0 EU/dL Normal 07-02-2018 [facility] (47283) Comment: Performed By: #### LURIN ### #[place] [address] WBC LM.HPF #/area (Urine NONE 0-5 Normal 07-02 [facility] sed) (28757) Comment: Performed By: #### LURIN ### #[place] [address] tsh on 2018-07-02 Thyrotropin Qn 1.96 0.34-4.82 uIU/mL Normal 07-02-2018 [facility] (26841) Comment: Performed By: #### LTSH #### [place] [address] rapid influenza a/b on 2018-07-02 Rapid Influenza A/B See below Negative Normal 07-02-2018 [facility] (00 000) Comment: Result Comment: Negative for influenza A and B. Performed By: #### LRFLU ### #[place] [address] mdrd egfr on 07-02 GFR/1.73 sq M >60 >60mL/min/1.73m2 mL/min/{1.73_m2} Normal [facility] non-blacks MDRD (000 00) vol rate/area (S/P/Bld) Comment: Result Comment: If the patie nt is , multiply the result by 1.210. Performed By: #### LGFR #### [place] [address] hemogram/manual diff on 2018-07-02 Abs. Baso 0.00 0.00-0.08 thou/cmm Normal 07-02-2018 [facility] (01038) Comment: Performed By: #### LMCBD ### #[place] [address] Abs. Eosin 0.14 0.00-0.41 thou/cmm Normal 07-02-2018 [facility] (36095) Comment: Performed By: #### LMCBD ### #[place] [address] Abs. Lymph 3.15 1.50-3.65 thou/cmm Normal 07-02-2018 [facility] (41913) Comment: Performed By: #### LMCBD ### #[place] [address] Abs. Cascade 1.10 0.20-1.00 thou/cmm High 07-02-2018 [facility] (30799) Comment: Performed By: #### LMCBD ### #[place] [address] Abs. Neut (ANC) 9.31 3.00-5.67 thou/cmm High 07-02-2018 [facility] (81559) Comment: Performed By: #### LMCBD ### #[place] [address] Basophil 0.0 % Normal 07-02-2018 [facility] (50591) Comment: Performed By: #### LMCBD ### #[place] [address] Diff Type Manual Diff Normal 07-02-2018 [facility] (27341) Comment: Performed By: #### LMCBD ### #[place] [address] Eosinophil 1.0 % Normal 07-02-2018 [facility] (34632) Comment: Performed By: #### LMCBD ### #[facility] [place], [place] [address] Lymphocyte 23.0 % Normal 07-02-2018 [facility] (63123) Comment: Performed By: #### LMCBD ### #[facility] [place], [place] [address] Monocyte 8.0 % Normal 07-02-2018 [facility] (03964) Comment: Performed By: #### LMCBD ### [address] [address] Platelet Estimate Normal Normal 07-02-2018 [facility] (32282) Comment: Performed By: #### LMCBD ### [address] [address] RBC Morphology Normal Normal 07-02-2018 [facility] (94732) Comment: Performed By: #### LMCBD ### [address] [address] Seg Neutrophil 68.0 % Normal 07-02-2018 [facility] (49417) Comment: Performed By: #### LMCBD ### #[place] [address] Erythrocyte distribution 12.0 11.5-15.9 % Normal 07-02 [facility] width Auto Ratio (RBC) System (10802) Comment: Performed By: #### LMCBD ### #[place] [address] Hct 39.1 37.0-47.0 % Normal 07-02-2018 [facility] (33113) Comment: Performed By: #### LMCBD ### #[place] [address] Hgb 13.5 12.0-16.0 g/dL Normal 07-02-2018 [facility] (56820) Comment: Performed By: #### LMCBD ### [address] [place], [place] [address] MCH 32.1 27.0-31.0 pg High 07-02-2018 [facility] (35604) Comment: Performed By: #### LMCBD ### #[facility] [place], [place] [address] MCHC 34.5 32.0-36.0 % Normal 07-02-2018 [facility] (72252) Comment: Performed By: #### LMCBD ### #[facility] [place], [place] [address] MCV 92.9 81.0-99.0 fl Normal 07-02-2018 [facility] (21611) Comment: Performed By: #### LMCBD ### #[facility] [place], [place] [address] MPV 10.3 7.1-10.5 fl Normal 07-02-2018 [facility] (90655) Comment: Performed By: #### LMCBD ### [address] [address] Platelet 256 150-400 thou/cmm Normal 07-02-2018 [facility] (83785) Comment: Performed By: #### LMCBD ### [address] [address] RBC Test strip #/vol 4.21 4.20-5.40 mil/cmm Normal 9 [facility] (00 000) Comment: Performed By: #### LMCBD ### [address] [address] WBC 13.7 4.8-10.8 thou/cmm High 07-02-2018 [facility] (71725) Comment: Performed By: #### LMCBD ### [address] [address] cult urine on 07-02 Cult Urine Test performed at [facility] Normal 07-02-2018 [facility] No growth System (00 000) Comment: Performed By: #### C_URI ### #[facility] [place], [place] [address] cpk on 2018-07-02 CPK 539 26-192 U/L High 07-02-2018 [facility] (85137) Comment: Performed By: #### LCK ####A [facility] [place], [place] [address] basic panel on 2018 Anion gap 3 molar conc 8 8-20 mmol/L Normal 019 [facility] (55379) Comment: Performed By: #### LP8 ####A [facility] [place], [place] [address] Calcium mass conc 8.9 8.5-10.1 mg/dL Normal 07-02-2018 [facility] (05395) Comment: Performed By: #### LP8 ####A [facility] [place], [place] [address] Chloride molar conc 104 98-107 mEq/L Normal 07-02-2018 [facility] (13288) Comment: Performed By: #### LP8 ####A [facility] [place], [place] [address] CO2 molar conc 27 21-32 mEq/L Normal 07-02-2018 [facility] (62691) Comment: Performed By: #### LP8 ####A [facility] [place], [place] [address] Creatinine mass conc 0.87 0.51-0.95 mg/dL Normal 9 [facility] (00 000) Comment: Performed By: #### LP8 ####A [facility] [place], [place] [address] Glucose mass conc 89 70-99 mg/dL Normal 07-02-2018 [facility] (02403) Comment: Performed By: #### LP8 ####A [address] [address] Potassium molar conc 3.5 3.5-5.1 mEq/L Normal 9 [facility] (69907) Comment: Performed By: #### LP8 ####A [facility] [place], [place] [address] Sodium molar conc 136 136-145 mEq/L Normal 07-02-2018 A [facility] (69061) Comment: Performed By: #### LP8 ####A [facility] [place], [place] [address] Urea nitrogen mass conc 11 7-25 mg/dL Normal 2018 [facility] (00 000) Comment: Performed By: #### LP8 ####A [facility] [place], [place] [address] Urea nitrogen/Creatinine mass 13 10-20 mg/mg Normal 07-02-2018 [facility] ratio System (00 000) Comment: Performed By: #### LP8 ####A [address] [address] foot 3v ap/lat/obl left on 2018-01-30 FOOT 3V AP/LAT/OBL Performed at [facility] 01-30-2018 [facility] APPROVED BY: [facility] Jonh Landry MD EXAM ([id number]) TITLE: THREE VIEWS OF THE LEFT FOOT DATE:01/30/2018 12:40 COMPARISON: None. CLINICAL INDICATION/HISTORY: Pain and swelling TECHNIQUE: AP, lateral and oblique images FINDINGS: No fracture or dislocation is seen. Osseous relationships are maintained on this nonweightbearing study. No suspicious osseous lesions. Joint spaces are preserved. IMPRESSION: Negative foot x-ray us transvaginal on 2018-01-23 US TRANSVAGINAL Performed at [facility] 01-23-2018 [facility] APPROVED BY: [facility] Adry Cabrera MD ( [id number]) EXAMINATION: TRANSVAGINAL AND LIMITED TRANSABDOMINAL PELVIC ULTRASOUND [...] on 2018-01-23 US PELVIS NON-OB Performed at [facility] 01-23-2018 [facility] APPROVED [facility] System BY: Adry Cabrera MD ([id number]) EXAMINATION: TRANSVAGINAL AND LIMITED TRANSABDOMINAL PELVIC ULTRASOUND [...] GFR/1.73 sq M >60 >60mL/min/1.73m2 mL/min/{1.73_m2} Normal [facility] predicted among [facility] non-blacks MDRD (000 00) vol rate/area (S/P/Bld) Comment: Result Comment: If the patie nt is , multiply the result by 1.210. Performed By: #### LGFR #### [address] [address] macroscopic urinalysis on 2018-01-23 Appearance Nom (U) CLEAR Normal 01-23-2018 [facility] ([id number]) Comment: Performed By: #### LMACU ### #[address] [address] Bilirubin Urine NEGATIVE Negative Normal 01-23-2018 [facility] ([id number]) Comment: Performed By: #### LMACU ### [address] [address] Color Nom (U) STRAW Normal 01-23-2018 [facility] ([id number]) Comment: Performed By: #### LMACU ### [address] [address] Glucose Ql (U) NEGATIVE Negative Normal 01-23-2018 [facility] ([id number]) Comment: Performed By: #### LMACU ### [address] [address] Hemoglobin,Urine NEGATIVE Negative Normal 01-23-2018 [facility] ([id number]) Comment: Performed By: #### LMACU ### [address] [address] Ketone Urine NEGATIVE Negative Normal 01-23-2018 [facility] ([id number]) Comment: Performed By: #### LMACU ### [address] [address] Leukocytes Esterase NEGATIVE Negative Normal 01-23-2018 [facility] ([id number]) Comment: Performed By: #### LMACU ### [address] [address] Nitrites Urine NEGATIVE Negative Normal 01-23-2018 [facility] ([id number]) Comment: Performed By: #### LMACU ### [address] [address] pH Test strip (U) 6.5 5.0-8.0 [pH] Normal 01-23-2018 [facility] ([id number]) Comment: Performed By: #### LMACU ### #[facility] [place] [address] Protein Urine NEGATIVE Negative Normal 01-23-2018 [facility] ([id number]) Comment: Performed By: #### LMACU ### #[place] [address] Specific David, Ur <=1.005 1.005-1.030 Normal 018 [facility] (00 000) Comment: Performed By: #### LMACU ### #[place] [address] Urobilinogen,Ur 0.2 0.0-1.0 EU/dL Normal 01-23-2018 [facility] ([id number]) Comment: Performed By: #### LMACU ### #[place] [address] hemogram/manual diff on 2018-01-23 Abs. Baso 0.17 0.00-0.08 thou/cmm High 01-23-2018 [facility] ([id number]) Comment: Performed By: #### LMCBD ### #[place] [address] Abs. Eosin 0.00 0.00-0.41 thou/cmm Normal 01-23-2018 [facility] ([id number]) Comment: Performed By: #### LMCBD ### #[place] [address] Abs. Lymph 2.22 1.50-3.65 thou/cmm Normal 01-23-2018 [facility] ([id number]) Comment: Performed By: #### LMCBD ### #[place] [address] Abs. Cascade 2.05 0.20-1.00 thou/cmm High 01-23-2018 [facility] ([id number]) Comment: Performed By: #### LMCBD ### #[place] [address] Abs. Neut (ANC) 12.66 3.00-5.67 thou/cmm High 01-23-2018 [facility] ([id number]) Comment: Performed By: #### LMCBD ### #[facility] [place] [address] Basophil 1.0 % Normal 01-23-2018 [facility] ([id number]) Comment: Performed By: #### LMCBD ### #[place] [address] Eosinophil 0.0 % Normal 01-23-2018 [facility] ([id number]) Comment: Performed By: #### LMCBD ### #[place] [address] Lymphocyte 13.0 % Normal 01-23-2018 [facility] ([id number]) Comment: Performed By: #### LMCBD ### #[place] [address] Monocyte 12.0 % Normal 01-23-2018 [facility] ([id number]) Comment: Performed By: #### LMCBD ### #[place] [address] Platelet Estimate Normal Normal 01-23-2018 [facility] ([id number]) Comment: Performed By: #### LMCBD ### #[place] [address] RBC Morphology Normal Normal 01-23-2018 [facility] ([id number]) Comment: Performed By: #### LMCBD ### #[place] [address] Seg Neutrophil 74.0 % Normal 01-23-2018 [facility] ([id number]) Comment: Performed By: #### LMCBD ### #[place] [address] Diff Type Manual Diff Normal 01-23-2018 [facility] ([id number]) Comment: Performed By: #### LMCBD ### #[place] [address] Erythrocyte distribution 11.6 11.5-15.9 % Normal 01-23 [facility] width Auto Ratio (RBC) System ([id number]) Comment: Performed By: #### LMCBD ### #[place] [address] Hct 40.8 37.0-47.0 % Normal 01-23-2018 [facility] ([id number]) Comment: Performed By: #### LMCBD ### #[place] [address] Hgb 14.2 12.0-16.0 g/dL Normal 01-23-2018 [facility] ([id number]) Comment: Performed By: #### LMCBD ### #[place] [address] MCH 31.8 27.0-31.0 pg High 01-23-2018 [facility] ([id number]) Comment: Performed By: #### LMCBD ### #[place] [address] MCHC 34.8 32.0-36.0 % Normal 01-23-2018 [facility] ([id number]) Comment: Performed By: #### LMCBD ### #[place] [address] MCV 91.3 81.0-99.0 fl Normal 01-23-2018 [facility] ([id number]) Comment: Performed By: #### LMCBD ### #[place] [address] MPV 10.0 7.1-10.5 fl Normal 01-23-2018 [facility] ([id number]) Comment: Performed By: #### LMCBD ### #[place] [address] Platelet 263 150-400 thou/cmm Normal 01-23-2018 [facility] ([id number]) Comment: Performed By: #### LMCBD ### #[place] [address] RBC Test strip #/vol 4.47 4.20-5.40 mil/cmm Normal 8 [facility] (00 000) Comment: Performed By: #### LMCBD ### #[facility] [place], [place] [address] WBC 17.1 4.8-10.8 thou/cmm High 01-23-2018 [facility] ([id number]) Comment: Performed By: #### LMCBD ### #[facility] [place], [place] [address] ct abdomen and pelvis w/o contrast on 2018-01-23 CT ABDOMEN AND Performed at [facility] 01-23-2018 [facility] APPROVED BY: [facility] CONTRAST Adry Cabrera MD Exam Title: ([id number]) CT OF THE ABDOMEN AND PELVIS WITHOUT [...] 4.0 3.4-5.0 g/dL Normal 01-23-2018 [facility] [place] (53957) Comment: Performed By: #### LP14 #### [facility] [place], [place] [address] ALP enzyme act/vol 63 46-116 U/L Normal 01-23-2018 [facility] ([id number]) Comment: Performed By: #### LP14 #### [address] [address] ALT-SGPT Blood 41 14-63 U/L Normal 01-23-2018 [facility] ([id number]) Comment: Performed By: #### LP14 #### [address] [address] Anion gap 3 molar conc 12 8-20 mmol/L Normal 018 [facility] ([id number]) Comment: Performed By: #### LP14 #### [address] [address] AST-SGOT Blood 29 15-37 U/L Normal 01-23-2018 [facility] ([id number]) Comment: Performed By: #### LP14 #### [address] [address] Bilirubin Ql (U) 0.6 0.2-1.0 mg/dL Normal 01-23-2018 [facility] ([id number]) Comment: Performed By: #### LP14 #### [address] [address] Calcium mass conc 8.9 8.5-10.1 mg/dL Normal 01-23-2018 [facility] ([id number]) Comment: Performed By: #### LP14 #### [address] [address] Chloride molar conc 93 98-107 mEq/L Low 01-23-2018 [facility] ([id number]) Comment: Performed By: #### LP14 #### [address] [address] CO2 molar conc 24 21-32 mEq/L Normal 01-23-2018 [facility] (60479) Comment: Performed By: #### LP14 #### [address] [place] [address] Creatinine mass conc 0.69 0.51-0.95 mg/dL Normal 8 [place] (00 000) Comment: Performed By: #### LP14 #### [facility] [place], [place] [address] Glucose mass conc 69 70-99 mg/dL Low 01-23-2018 [employer] [facility] (09705) Comment: Performed By: #### LP14 #### [facility] [place], [place] [address] Potassium molar conc 3.7 3.5-5.1 mEq/L Normal 8 [facility] ([id number]) Comment: Performed By: #### LP14 #### [address] [address] Protein mass conc 7.5 6.4-8.2 g/dL Normal 01-23-2018 [facility] [employer] [facility] [employer] [facility] (53037) Comment: Performed By: #### LP14 #### [address] [address] Sodium molar conc 125 136-145 mEq/L Low 01-23-2018 [facility] [employer] [facility] [employer] [facility] (29069) Comment: Performed By: #### LP14 #### [address] [address] Urea nitrogen mass conc 7 7-25 mg/dL Normal 2017 [facility] ([facility] (00 000) Comment: Performed By: #### LP14 #### [address] [address] Urea nitrogen/Creatinine mass 10 10-20 mg/mg Normal 01-23-2018 [facility] System (00 000) Comment: Performed By: #### LP14 #### [address] [address] chlam/gc-dna amplified on 2018-01-23 Chlam/GC-DNA Test performed at [place] [facility] CenterChlamydia trachomatis (40903) DNA NOT DETECTEDNeisseria gonorrhoeae DNA NOT DETECTEDReference range NOT DETECTEDMethod: Strand Displacement Amplification-BD ProbeTec AssayComment: A negative result does not precludeC.trachomatis or N. gonorrhoeae infection becauseresults are dependent on adequate specimen collection,absence of inhibitors, and sufficient DNA to be detected. Comment: Performed By: #### CTGCA ### #[facility] [place], [place] [address] Encounters Date Type Reason Provider Location 10-19-2018 - Emergency GEORGETTE RODRIGUEZ [facility] 10-20-2018 department patient [facility] Medical C enter visit ([id number]) 07-02-2018 - Emergency CHRISTOPHER MICHAEL [facility] 07-02-2018 department patient [facility] Medical C enter visit ([id number]) 12-15-2017 Emergency Other specified [facility] department patient noninflammatory UNKNOWN PROVIDER Sy stem ([id number]) visit disorders of vagina Maile Shawn Payers Payer Name Policy Number Location [facility] ([id number]) The following information is from the original [...] BE BASED ON THE PRIMARY CLINICAL RECORDS. [facility] provides no warranty or guarantee of the accuracy or completeness of information in this document. UNRECOGNIZED CONTENT PROVIDED BELOW FOR UNRECOGNIZED SECTION INFORMATION SOURCE DATE CREATED AUTHOR AUTHOR'S ORGANIZATIO N 12/21/2017 [facility] DATE CREATED AUTHOR AUTHOR'S ORGANIZATIO N 07/04/2018 [facility] DATE CREATED AUTHOR AUTHOR'S ORGANIZATIO N 10/21/2018 [facility] DATE CREATED AUTHOR AUTHOR'S ORGANIZATIO N 01/18/2020 [facility]
== END 2019-12-10 21:52 | disposition home or self-care (01) ==
LOC: ED 21:33
PROVIDERS: Emergency Provider Emergency Medicine; PCP Internal Medicine
DX: R10.30 Lower abdominal pain, unspecified (principal); R30.0 Dysuria; R11.0 Nausea; Z72.0 Tobacco use
CPT/HCPCS: 99282

== ENCOUNTER 2019-12-17 15:25 | Emergency (ER) | payer MEDICAID, SELFPAY ==
[2019-12-17 15:26] VITALS: BP 132/36; PULSE 87; RESP 18; TEMP 36.6; O2SAT 99; BMI 24.6
[2019-12-17 15:49] LABS: Bacteria 0 SEEN /hpf (None Seen); Color, Urine Yellow (Yellow); Glucose, Dipstick Normal (Normal); Ketone-Dipstick Negative (Negative); Leukocyte Esterase-Dipstick Negative /ul (Negative); Mucous, Urine 0 SEEN /hpf (<or=2+); Nitrite-Dipstick Negative (Negative); Occult Blood-Urine Negative /ul (Negative); Protein-Dipstick Negative (Negative); Red Blood Cells-Urine 0 SEEN /hpf (0-5); Specific Gravity, Urine 1.015 (1.002-1.030); Urine Bilirubin Dipstick Negative (Negative); Urine Clarity Cloudy (Clear); Urine Urobilinogen Normal (Normal)
--- NOTE | 2019-12-17 15:50 | ED.DCSUM_ITS ---
History of Present Illness Chief Complaint: Abd Pain Informant: Patient Pain: Pelvic Pain Onset: Weeks Context: Gradual Onset Timing: Continuous Quality: Aching Location: Suprapubic Worsened by: [place] Issue: -. Negative for: Vaginal bleeding, Passing clots, Passing tissue - Vaginal Discharge Onset: Days Quality: White Severity: Light Associated Symptoms: Dysuria, Urgency. Negative for: Frequency, Hematuria Sexually: Active, Single Partner Narrative: Patient is a 39-year-old female status post uterine ablation due to heavy periods and history of frequent bacterial vaginosis infections presenting with suprapubic abdominal pain. Patient states is going on for the past few weeks. She also some associated pain in her lower back. She states she has had some mild increased discharge that is white. She denies any significant odor. She states that she has pain when she tries to urinate. She states it is not a burning with urination but just a sharp pain whenever she starts to go pee. She denies any blood in her urine. Patient states she is been on multiple courses of Flagyl over the past year for recurrent bacterial vaginosis but she is never followed up with water taxi driver. She states she does not have one. She does have a history of ovarian cyst but states this feels different. Per chart review, patient was seen in the ER 1 week ago for the same complaint, but had to leave before she can be tested. Denies associated nausea, vomiting, fever, chills, chest pain or difficulty eating. She is sexually active with her and denies any other sexual partners. She is not concerned for's STDs. Prior similar symptoms: Yes - With BV Past Medical History - Allergies and Home Meds Allergies/Adverse Reactions: Allergies escitalopram [From Lexapro] Allergy (Verified 12/17/19 15:29) Other lamotrigine [From Lamictal] Allergy (Verified 12/17/19 15:29) Hives nitrofurantoin [From Macrobid] Allergy (Verified 12/17/19 15:29) Unknown nitrofurantoin macrocrystalline [From Macrobid] Allergy (Verified 12/17/19 15:29) Unknown codeine Adverse Reaction (Verified 12/17/19 15:29) Nausea Primary Care Physician: Tamika Mario MD [Primary Care Provider] - Past Medical History: None Surgical History: tonsillectomy, - - Left ovary removal secondary to cyst Lives: Spouse/ Significant Other Smoking Status: Current every day smoker - Family History Maternal Family History: Reports: Diabetes, Hypertension Paternal Family History: Reports: Hypertension Review of Systems General: Denies: Chills, Fever, Sweats Eyes: Denies: Visual changes - bilaterally, Diplopia ENT: Denies: Rhinorrhea, Sore throat Cardiovascular: Denies: Chest pain, Palpitations Respiratory: Denies: Dyspnea, Cough, Dyspnea on exertion Gastrointestinal: Reports: Abdominal pain - suprapubic . Denies: Nausea, Vomiting, Diarrhea, Melena, Hematochezia Genitourinary: Reports: Dysuria, - - vaginal discharge . Denies: Hematuria, Frequency Musculoskeletal: Reports: Back pain - lower. Denies: Extremity Pain Skin: Denies: Rash, Wounds Neurological: Denies: Headache, Weakness, Numbness Physical Exam Vital Signs/Narrative: Vital Signs Temp Pulse Resp BP Pulse Ox 12/17/19 15:26 97.8 F 87 18 132/36 H 99 Inital Vital Signs reviewed: Yes General: Well nourished, Well developed Head: Normocephalic, Atraumatic Eyes: Perrl, EOMI ENT: Moist mucous membranes, No rhinorrhea Neck: Supple, Nontender Cardiovascular: Regular rate, Regular rhythm, No murmurs Respiratory: No distress, CTA bilaterally, Chest nontender Abdomen: Soft, Nondistended, Normal bowel sounds, Tender - Suprapubic region. Negative for: Guarding, Rebound tenderness, Crockett's sign : Speculum exam: Normal external genitalia, No vaginal lesions, No vaginal discharge, No blood in vault, No active bleeding, Normal cervix Bimanual exam: No cervical motion tenderness, Os closed, Normal size uterus, Nontender uterus, Nontender adnexa, bilat, - - Tenderness to palpation on bimanual exam of the suprapubic area Back: Nontender, Normal Inspection. Negative for: CVA tenderness Extremities: Nontender, No edema Skin: Normal color, No rash Neurological: Alert, Oriented x3, Cranial nerves II-XII grossly intact, Normal Strength, Normal Sensation Psychological: Normal affect Diagnostic/Tx/Re-eval Laboratory Data 12/17/19 12/17/19 15:35 15:35 Urine Color Yellow Urine Clarity Cloudy Urine pH 8.0 Ur Specific [place] 1.015 Urine Protein Negative Urine Glucose (UA) Normal Urine Ketones Negative Urine Occult Blood Negative Urine Nitrite Negative Urine Bilirubin Negative Urine Urobilinogen Normal Ur Leukocyte Esterase Negative Urine RBC 0 SEEN Urine WBC 0-5 SEEN Ur Squamous Epith Cells 5-10 SEEN Ur Transition Epith Cell 0-5 SEEN Urine Bacteria 0 SEEN Urine Mucus 0 SEEN Urine Test Negative - Medical Decision/Diagnostic Studies Patient is evaluated for pelvic discomfort and suprapubic pain. She appears nontoxic in no acute distress. Her vital signs are normal. She has a history of BV but on pelvic exam she does not have any findings concerning for pelvic inflammatory disease, BV or Trichomonas. Wet prep does not comment on any clue cells or trichomonas. Patient is counseled that she needs to follow-up with [facility] OPERATOR as this appears to be more of a chronic issue. She is not have any findings enrichment assistant with UTI and I do not suspect pyelonephritis. She will be started on Pyridium to see if this helps with her bladder symptoms. Patient verbalized agreement understand this plan. She is given return precautions. Patient is given a dose of IM Toradol in the emergency room for pain control. She is discharged home in stable condition. ED Disposition - Plan for ED Patient: Disposition: Home or Assisted Living Diagnosis: Pelvic pain, Dysuria Instructions: ED Pelvic Pain [facility] Prescriptions: Phenazopyridine HCl [Pyridium] 200 mg PO TID PRN #6 tab PRN Reason: Bladder Spasm Transmission Status: Pending to [facility] Referrals: Tamika Mario MD [Primary Care Provider] - Stephy Simpson MD [STAFF PHYSICIAN] - Additional Instructions: Alternate ibuprofen and Tylenol as well for pain control. It is very important for you to follow-up with a specialist, water taxi driver, for further evaluation of this pelvic pain. Please return the emergency room for further evaluation if your symptoms return or worsen.
[2019-12-17 15:54] LABS: Internal QC Validated? YES +Cl - CLEAR BKGD; Pregnancy, Urine Negative Negative
[2019-12-17 16:05] LABS: White Blood Cells 0-5 SEEN /hpf (0-5)
[2019-12-17 16:06] LABS: Squamous Epithelial Cells - UA 5-10 SEEN /hpf (5-10); Transitional Epithelial - Ur 0-5 SEEN /hpf (0-5)
[2019-12-17] MEDS: Ketorolac 15 MG/ML Vial IM (16:59)
[2019-12-17 17:08] VITALS: RESP 16
[2019-12-17 18:04] LABS: Chlamydia Trachomatis by PCR Negative (Negative); Neisserai gonorrhoeae by PCR Negative (Negative); Probe Check PASS; Sample Adequacy Control PASS; Specimen Processing Control PASS
== END 2019-12-17 17:10 | disposition home or self-care (01) ==
PROVIDERS: Emergency Provider Emergency Medicine; PCP Internal Medicine
DX: R10.2 Pelvic and perineal pain (principal); R30.0 Dysuria; R39.15 Urgency of urination
CPT/HCPCS: 81001; 81025; 87210; 87491; 87591; 96372; 99282

== ENCOUNTER 2020-02-25 14:59 | Emergency (ER) | payer MEDICAID, SELFPAY ==
[2020-02-25 15:02] VITALS: BP 108/86; PULSE 114; RESP 16; TEMP 36.5; O2SAT 100; BMI 20.1
--- NOTE | 2020-02-25 16:29 | EKG12_ITS ---
Test Reason : Blood Pressure : / mmHG Vent. Rate : 066 BPM Atrial Rate : 066 BPM P-R Int : 148 ms QRS Dur : 076 ms QT Int : 414 ms P-R-T Axes : 049 078 071 degrees QTc Int : 434 ms Normal sinus rhythm Normal ECG Confirmed by CARROLL GARCIA, NICOLAS ([id number]), editorial clerk THERESA CALIX ([id number]) on 02/28/2020 11:17:48 AM Referred By: KATELYNN Confirmed By:NICOLAS HODGES MD
[2020-02-25 16:48] LABS: Absolute Lymphocyte Count 2.88 X10^3/uL (0.83-4.51); Absolute Neutrophil Count 5.5 X10^3/uL (2.0-7.7); Basophil% 1.1 % (0-1); Eosinophil# 0.16 X10^3/uL; Eosinophils% 1.7 % (0-5); Hematocrit 47.3 % (37-47); Hemoglobin 15.9 g/dL (12.0-15.0); Lymphocyte # 2.88 X10^3/ul (4.0); Lymphocyte % 30.6 % (19-41); Mean Corp Hgb Conc 33.6 g/dL (32-36); Mean Corpuscular Hgb 31.1 pg (27.0-32.0); Mean Corpuscular Volume 92.6 fL (81-99); Mean Platelet Vol. 10.5 fl (6.2-12.0); Monocyte# 0.73 X10^3/uL; Monocyte% 7.7 % (0-10); NRBC Flagged by Analyzer 0 % (0-5); Neutrophil # 5.52 X10^3/uL (2.7-7.7); Neutrophil % 58.6 % (47-70); Platelet Count 330 K/mm3 (150-450); RBC Distribution Width CV 12.2 % (11.6-14.6); RBC Distribution Width SD 41.8 fl (35.1-43.9); Red Blood Count 5.11 M/mm3 (4.2-5.4); White Blood Count 9.4 K/mm3 (4.4-11.0)
[2020-02-25 16:53] LABS: Internal QC Validated? YES +Cl - CLEAR BKGD; Pregnancy, Serum, hCG Quali. NEGATIVE Negative
[2020-02-25 16:55] LABS: Alcohol, Blood (Medical)-Serum < 3.0 mg/dL
[2020-02-25 16:59] LABS: Anion Gap 4 (5-15); BUN 4 mg/dL (7-18); BUN/Creat Ratio 4.1 RATIO (10-20); Calcium,Total 8.8 mg/dL (8.5-10.1); Chloride 108 mmol/L (98-107); Creatinine, Serum 0.97 mg/dL (0.55-1.02); EST Glomerular Filtration Rate 68 mL/min (>60); Est Glom Filt Rate - Afr Amer 83 mL/min (>60); Estimated Creatinine Clearance 68.28 ml/min; Glucose 86 mg/dL (74-106); Potassium 3.6 mmol/L (3.5-5.1); Sodium Level 138 mmol/L (136-145)
--- NOTE | 2020-02-25 17:10 | RAD_ITS ---
STUDY: X-RAY CHEST REASON FOR EXAM: Female, 40 years old. Anxiety. Suicidal tendencies. TECHNIQUE: Single AP portable view of the chest. COMPARISON: Chest, 02/05/2012. FINDINGS: The lungs are clear and expanded. There is no demonstrated pleural abnormality. Normal size heart. Normal mediastinum and carla. Normal visualized pulmonary arteries. Normal visualized aortic arch and descending thoracic aorta. Normal visualized thoracic spine. Normal visualized ribs, clavicles, and shoulders. There is no demonstrated abnormality of the visualized soft tissue structures of the upper abdomen. RAD/Chest 1 View (Portable) IMPRESSION: No acute cardiopulmonary disease or major interval change. Electronically Signed: Timbo Zhu DO at 17:35 EDT Tel [phone], Service support ,
[2020-02-25 17:24] LABS: Bacteria 0 SEEN /hpf (None Seen); Mucous, Urine 0 SEEN /hpf (<or=2+); Red Blood Cells-Urine 0 SEEN /hpf (0-5)
[2020-02-25 17:33] LABS: Amphetamine Urine VISTA POSITIVE (<1000 ng/mL); Barbiturate Urine VISTA NEGATIVE (< 200 ng/mL); Benzodiazepine Urine VISTA NEGATIVE (< 200 ng/mL); Cocaine Urine VISTA NEGATIVE (< 300 ng/mL); Ecstacy Urine VISTA NEGATIVE (< 500 ng/mL); Methadone Urine VISTA NEGATIVE (< 300 ng/mL); PCP Urine VISTA NEGATIVE (< 25 ng/mL); THC Urine VISTA POSITIVE (< 50 ng/mL); Vista UDS pH Range 6
[2020-02-25 18:00] VITALS: RESP 16
[2020-02-25 18:41] LABS: Color, Urine Yellow (Yellow); Glucose, Dipstick Normal (Normal); Ketone-Dipstick Negative (Negative); Leukocyte Esterase-Dipstick Negative /ul (Negative); Nitrite-Dipstick Negative (Negative); Occult Blood-Urine Negative /ul (Negative); Protein-Dipstick Negative (Negative); Specific Gravity, Urine 1.005 (1.002-1.030); Urine Bilirubin Dipstick Negative (Negative); Urine Clarity Sl. Cloudy (Clear); Urine Urobilinogen Normal (Normal)
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
--- NOTE | 2020-02-25 19:05 | ED.DCSUM_ITS ---
History of Present Illness Chief Complaint: Suicidal Informant: Patient Onset: Days Context: Gradual Onset Timing: Continuous Associated Symptoms: Depressed, Suicidal Thoughts, - - Anxiety. Negative for: Visual Hallucinations, Auditory Hallucinations Specific plan (suicidal thought): Overdose or cutting wrist or shooting self Narrative: Patient is a 40-year-old female with history of depression, prior suicide attempts and anxiety presenting with suicidal thoughts. Patient states her anxiety has been worsening over the past month or so. She now feels that she ca nnot take anymore and she just wants to be at peace. She wants to kill herself. She does not have a specific plan but think she would either overdose, shoot herself or cut herself. Patient notes that her 's uncle recently in when she saw him at the she thought he looked so peaceful and just wants to be at peace as well. Patient did not attempt to harm herself at all. Georgi christina states has been compliant with all of her medications. She follows at the counseling center. Her last use attempt was 10 years ago. Patient know she is had pain in the center of her chest for the past 3 months without any radiation. She also notes that she cries a lot. She denies any other physical complaints. Denies homicidal ideations. She states she does not hear any voices but she do es talk to herself a lot. Past Medical History - Allergies and Home Meds Allergies/Adverse Reactions: Allergies escitalopram [From Lexapro] Allergy (Verified 02/25/20 15:06) Other lamotrigine [From Lamictal] Allergy (Verified 02/25/20 15:06) Hives nitrofurantoin [From Macrobid] Allergy (Verified 02/25/20 15:06) Unknown nitrofurantoin macrocrystalline [From Macrobid] Allergy (Verified 02/25/20 15:06) Unknown codeine Adverse Reaction (Verified 02/25/20 15:06) Nausea Primary Care Physician: Tamika Mario MD [Primary Care Provider] - Past Medical History: - - Anxiety, depression Surgical History: noncontributory, tonsillectomy, - - Left ovary removal secondary to cyst Smoking Status: Current every day smoker - Family History Maternal Family History: Reports: Diabetes, Hypertension Paternal Family History: Reports: Hypertension Review of Systems General: Denies: Chills, Fever, Sweats Eyes: Denies: Visual changes - bilaterally, Diplopia ENT: Denies: Rhinorrhea, Sore throat Cardiovascular: Reports: Chest pain. Denies: Palpitations Respiratory: Denies: Dyspnea, Cough, Dyspnea on exertion Gastrointestinal: Denies: Abdominal pain, Nausea, Vomiting, Diarrhea, Melena, Hematochezia Genitourinary: Denies: Dysuria, Hematuria, Frequency Musculoskeletal: Denies: Back pain, Extremity Pain Skin: Denies: Rash, Wounds Neurological: Denies: Headache, Weakness, Numbness Psych: Reports: Depression, Anxiety, Suicidal thoughts, Suicidal ideations Physical Exam Vital Signs/Narrative: Vital Signs Resp 02/25/20 18:00 16 Inital Vital Signs reviewed: Yes General: Well nourished, Well developed Head: Normocephalic, Atraumatic Eyes: Perrl, EOMI ENT: Moist mucous membranes, No rhinorrhea Neck: Supple, Nontender Cardiovascular: Regular rate, Regular rhythm, No murmurs Respiratory: No distress, CTA bilaterally, Chest nontender Abdomen: Soft, Nontender, Nondistended, Normal bowel sounds Back: Nontender, Normal Inspection Extremities: Nontender, No Edema Skin: Normal color, No rash Neurological: Alert, Oriented x3, Cranial nerves II-XII grossly intact, Normal Strength, Normal Sensation Psych: Normal Speech Pattern, Pressured Speech, Suicidal thoughts. Negative for: Homicidal thoughts, Hallucinations, Delusions Diagnostic/Tx/Re-eval Chest X-Ray - ED: 1 View, Read by ED Physician, Read by Radiologist, No Acute Disease Clinical Impression(s) from Imaging Studies Chest X-Ray 02/25/20 17:10 IMPRESSION: No acute cardiopulmonary disease or major interval change. Electronically Signed: Timbo Zhu DO at 17:35 EDT Tel [phone], Service support , Laboratory Data 02/25/20 02/25/20 02/25/20 15:40 15:40 15:40 WBC 9.4 RBC 5.11 Hgb 15.9 H Hct 47.3 H MCV 92.6 MCH 31.1 MCHC 33.6 RDW Std Deviation 41.8 RDW Coeff of Denys 12.2 Plt Count 330 MPV 10.5 Immature Gran % (Auto) 0.300 Neut % (Auto) 58.6 Lymph % (Auto) 30.6 [place] % (Auto) 7.7 Eos % (Auto) 1.7 Baso % (Auto) 1.1 H Absolute Neuts (auto) 5.5 Absolute Lymphs (auto) 2.88 Nucleated RBC % 0 Sodium 138 Potassium 3.6 Chloride 108 H Carbon Dioxide 26.0 Anion Gap 4 L BUN 4 L Creatinine 0.97 Estim Creat Clear Calc 68.28 Est GFR (MDRD) Af Amer 83 Est GFR (MDRD) Non-Af 68 BUN/Creatinine Ratio 4.1 L Glucose 86 Calcium 8.8 Serum , Qual Urine Color Urine Clarity Urine pH Ur Specific [place] Urine Protein Urine Glucose (UA) Urine Ketones Urine Occult Blood Urine Nitrite Urine Bilirubin Urine Urobilinogen Ur Leukocyte Esterase Urine Opiates Screen Urine Methadone Screen Ur Barbiturates Screen Ur Phencyclidine Scrn Ur Amphetamines Screen U Methamphetamin-MDMA U Benzodiazepines Scrn Urine Cocaine Screen U Cannabinoids Screen Ur Drug Screen Comment Ethyl Alcohol < 3.0 02/25/20 02/25/20 02/25/20 15:40 15:40 15:40 WBC RBC Hgb Hct MCV MCH MCHC RDW Std Deviation RDW Coeff of Denys Plt Count MPV Immature Gran % (Auto) Neut % (Auto) Lymph % (Auto) [place] % (Auto) Eos % (Auto) Baso % (Auto) Absolute Neuts (auto) Absolute Lymphs (auto) Nucleated RBC % Sodium Potassium Chloride Carbon Dioxide Anion Gap BUN Creatinine Estim Creat Clear Calc Est GFR (MDRD) Af Amer Est GFR (MDRD) Non-Af BUN/Creatinine Ratio Glucose Calcium Serum , Qual NEGATIVE Urine Color Yellow Urine Clarity Sl. Cloudy Urine pH 7.0 Ur Specific [place] 1.005 Urine Protein Negative Urine Glucose (UA) Normal Urine Ketones Negative Urine Occult Blood Negative Urine Nitrite Negative Urine Bilirubin Negative Urine Urobilinogen Normal Ur Leukocyte Esterase Negative Urine Opiates Screen NEGATIVE Urine Methadone Screen NEGATIVE Ur Barbiturates Screen NEGATIVE Ur Phencyclidine Scrn NEGATIVE Ur Amphetamines Screen POSITIVE H U Methamphetamin-MDMA NEGATIVE U Benzodiazepines Scrn NEGATIVE Urine Cocaine Screen NEGATIVE U Cannabinoids Screen POSITIVE H Ur Drug Screen Comment Ethyl Alcohol - Rhythm Strip Rhythm Strip: Sinus Rhythm Rate: 66 Ectopy: None - EKG Initial EKG Interpretation: Sinus Rhythm, - - Sinus rhythm rate of 66 Normal intervals Normal axis Normal ST segments Patient evaluated for worsening anxiety and no suicidal thoughts. She is not made an attempt but does have a plan. I am concerned that patient is an imminent risk to herself and does require emergent psychiatric evaluation. Patient is medically cleared. Pending final disposition from case management. Patient remained stable and cooperative on the emergency room. She is accepted to [facility] for inpatient psychiatric evaluation by Dr. Velez. ED Disposition - Plan for ED Patient: Disposition: Acute Care Hospital - Other Diagnosis: Anxiety, Suicidal ideation, Atypical chest pain Referrals: Tamika Mario MD [Primary Care Provider] -
[2020-02-25 19:27] VITALS: BP 102/76; PULSE 66; RESP 14; O2SAT 97
[2020-02-25 19:29] LABS: Squamous Epithelial Cells - UA 5-10 SEEN /hpf (5-10); White Blood Cells 0-5 SEEN /hpf (0-5)
--- NOTE | 2020-02-25 19:29 | ED.RN ---
Called lab for urine results. Tech said they were really behind but she will check on the results.
--- NOTE | 2020-02-25 19:32 | CM.ED ---
Social Work Telephone call to Jose Coats. Referral placed. Clinical information faxed. Pending review. Milan Gomez MSW, FRANKY
--- NOTE | 2020-02-25 20:19 | CM.ED ---
Addendum entered by Amee Gomez 02/25/20 20:41: [place] [facility] faxed to [facility]. Original Note: Social Work Telephone call from Savanna Coats. Patient has been accepted by Dr. Velez. Nurse to call report to [phone]. Patient to admit to the [facility]. Updated patient and medical team. Milan HOPKINS, FRANKY
[2020-02-25 20:24] VITALS: RESP 14
--- NOTE | 2020-02-25 20:36 | CM.ED ---
Social Work Patient agreeable to this oncology social work calling patient spouse, Navjot. Telephone call to Navjot, this oncology social work updated Navjot on patient disposition. Milan Gomez MSW, FRANKY
[2020-02-25 21:35] VITALS: RESP 14
[2020-02-25 22:36] VITALS: RESP 16
== END 2020-02-25 22:37 ==
PROVIDERS: Emergency Provider Emergency Medicine; PCP Internal Medicine
DX: F41.9 Anxiety disorder, unspecified (principal); R45.851 Suicidal ideations; R07.89 Other chest pain; F17.200 Nicotine dependence, unspecified, uncomplicated; F32.9 Major depressive disorder, single episode, unspecified
CPT/HCPCS: 71045; 80048; 80307; 80320; 81001; 84703; 85025; 93005; 99284; G0480

== ENCOUNTER 2020-05-29 12:27 | Emergency (ER) | payer MEDICAID, SELFPAY ==
[2020-05-29 12:28] VITALS: BP 106/27; PULSE 106; RESP 18; TEMP 36.6; O2SAT 97; BMI 23.3
--- NOTE | 2020-05-29 13:04 | ED.VIS.GEN ---
History of Present Illness Chief Complaint: General Illness Informant: Patient Onset: Days - Onset of symptoms 3 days ago Context: Sudden Onset Timing: Continuous Quality: Myalgias, arthralgias, cough, shortness of breath, malaise etc. Location: Generalized Current Severity: Moderate Maximum Severity: Moderate Worsened by: Activity increase shortness of breath Relieved by: Nothing Associated Symptoms: Subjective fever Narrative: Patient is a 40-year-old woman who smokes 1 pack/day presents with flulike symptoms. She also reports loss of appetite, malaise, generalized weakness. She states this feels worse than when she had the flu. She complains of subjective fever. She states does not have a thermometer. She has been exposed to multiple people who have been diagnosed with Covid. She does not always wear a mask. Patient does report nausea and diarrhea. She denies urinary symptoms. She denies rash. She denies joint swelling. Prior similar symptoms: No Recent Illness/Hospitalization: No - Past Medical History (1) Acute upper GI bleed Status: Resolved (2) Depression Status: Chronic Past Medical History - Allergies and Home Meds Allergies/Adverse Reactions: Allergies escitalopram [From Lexapro] Allergy (Verified 05/29/20 12:30) Other lamotrigine [From Lamictal] Allergy (Verified 05/29/20 12:30) Hives nitrofurantoin [From Macrobid] Allergy (Verified 05/29/20 12:30) Unknown nitrofurantoin macrocrystalline [From Macrobid] Allergy (Verified 05/29/20 12:30) Unknown codeine Adverse Reaction (Verified 05/29/20 12:30) Nausea Primary Care Physician: Tamika Mario MD [Primary Care Provider] - Prior records reviewed: Yes Surgical History: noncontributory, tonsillectomy, - - Left ovary removal secondary to cyst Lives: Alone Smoking Status: Current every day smoker Alcohol: Rare Drugs: None - Family History Maternal Family History: Reports: Diabetes, Hypertension Paternal Family History: Reports: Hypertension Review of Systems General: Reports: Chills, Fever, Malaise, Subjective. Denies: Sweats, Weight loss Eyes: Denies: Visual changes - bilaterally, Blurred Vision - bilaterally ENT: Reports: Bilateral ear pain, Rhinorrhea, Sore throat Cardiovascular: Reports: Chest pain, Palpitations Respiratory: Reports: Dyspnea, Cough, Dyspnea on exertion. Denies: Sputum, Orthopnea, Paroxysmal nocturnal dyspnea Gastrointestinal: Reports: Abdominal pain, Nausea, Diarrhea. Denies: Vomiting, Constipation, Melena Genitourinary: Denies: Dysuria, Hematuria, Frequency Musculoskeletal: Reports: Myalgias, Arthralgias. Denies: Neck pain, Back pain, Swelling, Extremity Pain, -, - Skin: Denies: Rash, Wounds Neurological: Reports: Headache, Weakness. Denies: Parasthesia Psych: Reports: Depression Endocrine: Denies: Polyuria, Polydipsia Hematologic: Denies: Easy bruising Physical Exam Vital Signs/Narrative: Vital Signs Temp Pulse Resp BP Pulse Ox 05/29/20 12:28 98 F 106 H 18 106/27 L 97 Inital Vital Signs reviewed: Yes General: Well nourished, Well developed, - - Patient appears ill. She is tearful. Head: Normocephalic, Atraumatic Eyes: Perrl, EOMI. Negative for: Pale conjunctiva, Scleral icterus ENT: TM's clear, Nasal congestion. Negative for: No rhinorrhea Neck: Supple, Nontender, No lymphadenopathy, No JVD Cardiovascular: Regular rhythm, No murmurs, Normal S1, Normal S2, Tachycardia Respiratory: No distress, Chest nontender, Wheezing. Negative for: CTA bilaterally Abdomen: Soft, Nontender, Nondistended, Normal bowel sounds Rectal: Deferred Back: Nontender, Normal Inspection Extremities: Nontender, No edema Skin: Normal color, No rash Neurological: Alert, Oriented x3, Cranial nerves II-XII grossly intact, Normal Strength, Normal Sensation Psychological: Normal affect, Normal Mood Diagnostic/Tx/Re-eval Chest X-Ray - ED: 1 View, Read by ED Physician, Normal, Heart, Lungs, Mediastinum, Bony Structures, No Acute Disease, - - Slight hyper aeration 05/29/20 13:30 Chest 1 View (Portable) [RAD] Stat 05/29/20 12:55 Mucosa - Nose SARS-CoV-2 Antigen (Rapid) - Final ED Disposition - Plan for ED Patient: Disposition: Home or Assisted Living Diagnosis: Upper respiratory infection with cough and congestion, Acute bronchospasm due to viral infection Instructions: ED URI, Viral W/ Wheezing (Adult) Referrals: Tamika Mario MD [Primary Care Provider] - 10-14 Days if not better Additional Instructions: 1. Is in your best interest to stop smoking 2. 2 puffs of inhaler every 2-4 hours while awake for the next 2 to 3 days then every 4-6 hours as needed.
--- NOTE | 2020-05-29 13:30 | RAD_ITS ---
STUDY: X-RAY CHEST REASON FOR EXAM: Female, 40 years old. C/o cough, SOB, N/V and chest pain TECHNIQUE: Single AP portable view of the chest. COMPARISON: Comparison is made with prior study 02/25/2020. FINDINGS: The lungs are clear and expanded. There is no demonstrated pleural abnormality. Normal size heart. Normal mediastinum and carla. Normal visualized pulmonary arteries. Normal visualized aortic arch and descending thoracic aorta. Normal visualized thoracic spine. Normal visualized ribs, clavicles, and shoulders. There is no demonstrated abnormality of the visualized soft tissue structures of the upper abdomen. RAD/Chest 1 View (Portable) IMPRESSION: Normal x-ray examination of the chest. Electronically Signed: Cristhian Wilhelm, at 13:49 EST , Service support ,
== END 2020-05-29 14:13 | disposition home or self-care (01) ==
PROVIDERS: Emergency Provider Emergency Medicine; PCP Internal Medicine
DX: J06.9 Acute upper respiratory infection, unspecified (principal); J98.01 Acute bronchospasm; Z20.828 Contact with and (suspected) exposure to other viral communicable diseases; M25.50 Pain in unspecified joint; R53.81 Other malaise; R06.02 Shortness of breath; R63.0 Anorexia; R19.7 Diarrhea, unspecified; H92.03 Otalgia, bilateral; R53.1 Weakness; F32.9 Major depressive disorder, single episode, unspecified; F17.200 Nicotine dependence, unspecified, uncomplicated; Z79.899 Other long term (current) drug therapy
CPT/HCPCS: 71045; 87426; 99282

== ENCOUNTER 2021-03-09 10:47 | Emergency (ER) | payer MEDICAID, SELFPAY ==
[2021-03-09 10:48] VITALS: BP 119/74; PULSE 78; RESP 18; TEMP 36.6; O2SAT 100; BMI 20.7
--- NOTE | 2021-03-09 11:06 | CT_ITS ---
STUDY: CT ABDOMEN AND PELVIS WITHOUT CONTRAST REASON FOR EXAM: Female, 41 years old. Kidney Stone RADIATION DOSAGE (If Supplied By Facility): CTDIvol = ( 5.33 ) mGy, DLP = ( 235.10 ) mGycm TECHNIQUE: Transaxial images were obtained from the dome of the diaphragm to the symphysis pubis without oral contrast, and without intravenous contrast. Sagittal and coronal images were reconstructed. Individualized dose optimization techniques were used for this CT. COMPARISON: 10/11/2019. FINDINGS: Lung bases: Mild atelectasis/dependent changes. No acute process. Heart: Unremarkable. Liver: Hepatic steatosis. No focal hepatic lesions given noncontrast technique. Gallbladder/biliary ducts: Unremarkable. Pancreas: Unremarkable. Spleen: Unremarkable. Adrenal glands: Unremarkable. Kidneys/ureters/bladder: Unremarkable. Uterus/adnexa: Right adnexal clip (axial image 86 series 2). Small right cystic adnexa. Physiologic appearance of the uterus. Large bowel/small bowel: Colon underdistended. No significant inflammatory changes. No obstruction. No pneumatosis. No perforation. No significant bowel wall thickening. Appendix: Unremarkable (axial image 80 series 2). Gastroesophageal junction/stomach: Unremarkable. Retroperitoneum/lymph nodes: No intra-abdominal free air. Trace pelvic free fluid (axial image 85). No pathologically enlarged lymph nodes. Vascular: Mild vascular calcifications. Osseous structures: Unremarkable. Subcutaneous/soft tissues: Unremarkable. CT/Abdomen/Pelvis without Cont IMPRESSION: No acute intraabdominal/pelvic findings Nonemergent findings, as above Electronically Signed: Jose Alegre DO at 12:09 EDT Tel , Service support ,
--- NOTE | 2021-03-09 11:12 | EX.ED.DYSGE1 ---
HPI History of Present Illness Chief Complaint: Flank Pain Informant: patient Narrative Narrative: 41-year-old female presenting with right flank pain. Patient states she has had urinary frequency and right flank pain. She went to her primary care physician this morning and was noted to have blood in her urine. She was advised to come to the ED if she had worsening pain. She complains of persistent pain in her right flank. She has tried ibuprofen at home. She denies nausea or vomiting. Denies fever. Prior similar symptoms: No Recent Illness/[facility]ization: [facility] Medical History (Updated 03/09/21 @ 16:[address] Alana Reinoso MD) Anxiety Home Medications trazodone 100 mg PO QHS 01/03/17 [History Last Taken 01/02/17] clonazepam 0.25 mg PO DAILY 03/09/21 [History Last Taken Unknown] hydrocodone-acetaminophen 1 tab PO Q6H PRN PRN 3 Days #10 tablet 03/09/21 [Rx Last Taken Unknown] Allergy/AdvReac Type Severity Reaction Status Date / Time escitalopram [From Lexapro] Allergy Other Verified 03/09/21 10:48 lamotrigine [From Lamictal] Allergy Hives Verified 03/09/21 10:48 nitrofurantoin Allergy Unknown Verified 03/09/21 10:48 [From Macrobid] nitrofurantoin Allergy Unknown Verified 03/09/21 10:48 macrocrystalline [From Macrobid] codeine AdvReac Nausea Verified 03/09/21 10:48 Social History Smoking Status: Current every day smoker tobacco type: cigarettes ROS ROS ED Constitutional Constitutional ED: Denies fever(s) Eyes Eyes: Denies change in vision ENT ENT ED: Denies rhinorrhea or sore throat Cardiovascular Cardiovascular: Denies chest pain or palpitations Respiratory/Chest Respiratory/Chest: Denies cough or dyspnea Gastrointestinal Gastrointestinal: Reports abdominal pain; Denies diarrhea, nausea or vomiting Genitourinary Genitourinary ED: Reports urinary frequency; Denies dysuria Musculoskeletal Musculoskeletal: Denies myalgias Integumentary Denies rash Neurologic Neurologic: Denies headache(s) Psychiatric Psychiatric: Denies suicidal thoughts EXAM Physical Exam Const Vital Signs: 03/09/21 10:48 03/09/21 15:39 Temperature 98 F Temperature Source Temporal Pulse Rate 78 78 Respiratory Rate 18 16 Blood Pressure 119/74 109/83 H Blood Pressure Mean 89 91 Pulse Ox 100 98 Oxygen Delivery Method Room Air Room Air Positive well nourished and well developed General Appearance ED: well developed HEENT Reports normocephalic and head/scalp atraumatic Eyes PERRL and EOMs intact bilaterally Neck supple General: Negative for tenderness Chest Wall inspection of chest normal Resp normal respiratory effort and clear to auscultation bilaterally Cardio regular rate and regular rhythm GI non-distended Palpation: soft and tender RLQ; Negative for guarding or rebound tenderness present no CVA tenderness Back/Spine General Back: Negative for CVA tenderness Extremity normal to inspection Neuro oriented x3 Sensorium / Orientation: alert Psych mental status grossly normal Skin no rashes or lesions noted MDM MDM MDM Narrative Medical decision making narrative: Patient was given morphine, Zofran IV. CBC, chemistries unremarkable. Urinalysis shows occult blood otherwise unremarkable. hCG negative. CT abdomen pelvis shows no acute process. Patient states she had an episode of urinary incontinence last night. She has been continent of urine since that time. Normal rectal tone. Normal strength and sensation lower extremities. Discussed with Dr. Mcgill who recommends MRI. MRI lumbar spine was obtained and is normal. Patient is resting comfortably on reevaluation. Advised to follow up with primary care physician. Advised return to ED for worsening complaints. Lab Data Attestation: I reviewed the patient's lab results. Labs: Laboratory Results - last 24 hr 03/09/21 03/09/21 03/09/21 10:55 11:20 11:20 WBC 9.7 RBC 4.57 Hgb 14.4 Hct 42.1 MCV 92.1 MCH 31.5 MCHC 34.2 RDW Std Deviation 40.5 RDW Coeff of Denys 11.9 Plt Count 262 MPV 9.6 Immature Gran % (Auto) 0.300 Neut % (Auto) 62.8 Lymph % (Auto) 28.8 [place] % (Auto) 6.6 Eos % (Auto) 0.7 Baso % (Auto) 0.8 Absolute Neuts (auto) 6.1 Absolute Lymphs (auto) 2.79 Nucleated RBC % 0 Sodium 137 Potassium 3.6 Chloride 105 Carbon Dioxide 26.0 Anion Gap 6 BUN 10 Creatinine 0.87 Estim Creat Clear Calc 77.71 Est GFR (MDRD) Af Amer 93 Est GFR (MDRD) Non-Af 77 BUN/Creatinine Ratio 11.5 Glucose 105 Calcium 8.8 Serum , Qual Urine Color Yellow Urine Clarity Sl. Cloudy Urine pH 7.0 Ur Specific [place] 1.010 Urine Protein 15 H Urine Glucose (UA) Normal Urine Ketones Negative Urine Occult Blood 10 H Urine Nitrite Negative Urine Bilirubin Negative Urine Urobilinogen Normal Ur Leukocyte Esterase Negative Urine RBC 0-5 SEEN Urine WBC 0 SEEN Ur Squamous Epith Cells 0-5 SEEN Urine Bacteria RARE Urine Mucus 0 SEEN 03/09/21 11:20 WBC RBC Hgb Hct MCV MCH MCHC RDW Std Deviation RDW Coeff of Denys Plt Count MPV Immature Gran % (Auto) Neut % (Auto) Lymph % (Auto) [place] % (Auto) Eos % (Auto) Baso % (Auto) Absolute Neuts (auto) Absolute Lymphs (auto) Nucleated RBC % Sodium Potassium Chloride Carbon Dioxide Anion Gap BUN Creatinine Estim Creat Clear Calc Est GFR (MDRD) Af Amer Est GFR (MDRD) Non-Af BUN/Creatinine Ratio Glucose Calcium Serum , Qual NEGATIVE Urine Color Urine Clarity Urine pH Ur Specific [place] Urine Protein Urine Glucose (UA) Urine Ketones Urine Occult Blood Urine Nitrite Urine Bilirubin Urine Urobilinogen Ur Leukocyte Esterase Urine RBC Urine WBC Ur Squamous Epith Cells Urine Bacteria Urine Mucus Radiography Diagnostic Testing: Radiology Impression Abdomen/Pelvis CT 03/09/21 11:06 IMPRESSION: No acute intraabdominal/pelvic findings Nonemergent findings, as above Electronically Signed: Jose Alegre DO at 12:09 EDT Tel , Service support , Lumbar Spine MRI 03/09/21 13:14 IMPRESSION: Normal unenhanced MR examination of the lumbar spine. Electronically Signed: Kuldeep Beverly MD at 16:28 EDT Tel , Service support , Discharge Plan Triage Chief Complaint: Flank Pain ED Provider: Alana Reinoso Dx/Rx/DC Orders Clinical Impression: Acute right flank pain Instructions: ED Flank Pain, Uncertain Cause Prescriptions: New hydrocodone-acetaminophen 5-325 mg tablet 1 tab PO Q6H PRN PRN (Reason: Pain) 3 Days Qty: 10 RF: 0 No Action trazodone 100 MG tablet 100 mg PO QHS RF: 0 clonazepam 0.25 mg tablet,disintegrating 0.25 mg PO DAILY RF: 0 Primary Care Provider: Tamika Mario Referrals: Tamika Mario MD [Primary Care Provider] - Disposition Disposition: Home, Self Care
[2021-03-09 11:21] LABS: Mucous, Urine 0 SEEN /hpf (<or=2+); White Blood Cells 0 SEEN /hpf (0-5)
[2021-03-09 11:23] LABS: Color, Urine Yellow (Yellow); Glucose, Dipstick Normal (Normal); Ketone-Dipstick Negative (Negative); Leukocyte Esterase-Dipstick Negative /ul (Negative); Nitrite-Dipstick Negative (Negative); Occult Blood-Urine 10 /ul (Negative); Protein-Dipstick 15 mg/dl (Negative); Urine Bilirubin Dipstick Negative (Negative); Urine Clarity Sl. Cloudy (Clear); Urine Urobilinogen Normal (Normal)
[2021-03-09] MEDS: Morphine 4 MG/ML Syringe IV ×2 (11:23→16:15)
[2021-03-09] MEDS: Ondansetron 4 MG/2 ML Vial IV (11:23)
[2021-03-09 11:28] LABS: Absolute Lymphocyte Count 2.79 X10^3/uL (0.83-4.51); Absolute Neutrophil Count 6.1 X10^3/uL (2.0-7.7); Basophil# 0.08 X10^3/uL; Basophil% 0.8 % (0-1); Eosinophil# 0.07 X10^3/uL; Eosinophils% 0.7 % (0-5); Hematocrit 42.1 % (37-47); Hemoglobin 14.4 g/dL (12.0-15.0); Lymphocyte # 2.79 X10^3/ul (0.83-4.51); Lymphocyte % 28.8 % (19-41); Mean Corp Hgb Conc 34.2 g/dL (32-36); Mean Corpuscular Hgb 31.5 pg (27.0-32.0); Mean Corpuscular Volume 92.1 fL (81-99); Mean Platelet Vol. 9.6 fl (6.2-12.0); Monocyte# 0.64 X10^3/uL; Monocyte% 6.6 % (0-10); NRBC Flagged by Analyzer 0 % (0-5); Neutrophil # 6.07 X10^3/uL (2.7-7.7); Neutrophil % 62.8 % (47-70); Platelet Count 262 K/mm3 (150-450); RBC Distribution Width CV 11.9 % (11.6-14.6); RBC Distribution Width SD 40.5 fl (35.1-43.9); Red Blood Count 4.57 M/mm3 (4.2-5.4); White Blood Count 9.7 K/mm3 (4.4-11.0)
[2021-03-09 11:28] LABS: Red Blood Cells-Urine 0-5 SEEN /hpf (0-5)
[2021-03-09 11:29] LABS: Bacteria RARE /hpf (None Seen); Squamous Epithelial Cells - UA 0-5 SEEN /hpf (5-10)
[2021-03-09 11:36] LABS: Internal QC Validated? YES +Cl - CLEAR BKGD; Pregnancy, Serum, hCG Quali. NEGATIVE Negative
[2021-03-09 11:40] LABS: Anion Gap 6 (5-15); BUN 10 mg/dL (7-18); BUN/Creat Ratio 11.5 RATIO (10-20); Calcium,Total 8.8 mg/dL (8.5-10.1); Chloride 105 mmol/L (98-107); Creatinine, Serum 0.87 mg/dL (0.55-1.02); EST Glomerular Filtration Rate 77 mL/min (>60); Est Glom Filt Rate - Afr Amer 93 mL/min (>60); Estimated Creatinine Clearance 77.71 ml/min; Glucose 105 mg/dL (74-106); Potassium 3.6 mmol/L (3.5-5.1); Sodium Level 137 mmol/L (136-145)
--- NOTE | 2021-03-09 13:14 | MRI_ITS ---
STUDY: MRI LUMBAR SPINE WITHOUT CONTRAST REASON FOR EXAM: Female, 41 years old. back pain, incontinence, left leg pain TECHNIQUE: Standardized fat and water weighted pulse sequences were obtained in the sagittal and axial planes. COMPARISON: None FINDINGS: T12-L1: Normal endplates. Normal disc height, hydration and morphology. Normal bilateral facet joints. Normal central canal and bilateral lateral recesses. Normal bilateral intervertebral neural foramina. Normal lumbar lordosis. There is no substantial scoliosis. Normal conus medullaris that terminates at the L1. L1-2: Normal endplates. Normal disc height, hydration and morphology. Normal bilateral facet joints. Normal central canal and bilateral lateral recesses. Normal bilateral intervertebral neural foramina. L2-3: Normal endplates. Normal disc height, hydration and morphology. Normal bilateral facet joints. Normal central canal and bilateral lateral recesses. Normal bilateral intervertebral neural foramina. L3-4: Normal endplates. Normal disc height, hydration and morphology. Normal bilateral facet joints. Normal central canal and bilateral lateral recesses. Normal bilateral intervertebral neural foramina. L4-5: Normal endplates. Normal disc height, hydration and morphology. Normal bilateral facet joints. Normal central canal and bilateral lateral recesses. Normal bilateral intervertebral neural foramina. L5-S1: Normal endplates. Normal disc height, hydration and morphology. Normal bilateral facet joints. Normal central canal and bilateral lateral recesses. Normal bilateral intervertebral neural foramina. Normal visualized sacral ala. Normal visualized paraspinous soft tissue structures. MRI/Spine Lumbar (Routine) IMPRESSION: Normal unenhanced MR examination of the lumbar spine. Electronically Signed: Kuldeep Beverly MD at 16:28 EDT Tel , Service support ,
[2021-03-09 15:39] VITALS: BP 109/83; PULSE 78; RESP 16; O2SAT 98
[2021-03-09 16:59] VITALS: PULSE 85; RESP 16; O2SAT 100
== END 2021-03-09 17:00 | disposition home or self-care (01) ==
PROVIDERS: Emergency Provider Emergency Medicine; PCP Internal Medicine
DX: R10.9 Unspecified abdominal pain (principal); R31.9 Hematuria, unspecified; R35.0 Frequency of micturition; F41.9 Anxiety disorder, unspecified; F17.210 Nicotine dependence, cigarettes, uncomplicated; Z79.899 Other long term (current) drug therapy
CPT/HCPCS: 72148; 74176; 80048; 81001; 84703; 85025; 96374; 96375; 96376; 99283; A4216; J2405

== ENCOUNTER 2021-09-09 07:31 | Emergency (ER) | payer MEDICAID, SELFPAY ==
[2021-09-09 07:32] VITALS: BP 118/82; PULSE 92; RESP 14; TEMP 36.6; O2SAT 100; BMI 21.6
--- NOTE | 2021-09-09 07:53 | CT_ITS ---
STUDY: CT ABDOMEN AND PELVIS WITH CONTRAST REASON FOR EXAM: Female, 41 years old. pain, constipation RADIATION DOSAGE (If Supplied By Facility): CTDIvol = ( 8.60 ) mGy, DLP = ( 351.22 ) mGycm TECHNIQUE: Transaxial images were obtained from the dome of the diaphragm to the symphysis pubis without oral contrast. IV 100mL Isovue-300 was administered. Sagittal and coronal images were reconstructed. Individualized dose optimization techniques were used for this CT. COMPARISON: CT of abdomen and pelvis dated March 09, 2021 FINDINGS: The visualized lung bases are unremarkable. The visualized portions of the heart are within normal limits. Normal liver. Normal gallbladder and extrahepatic biliary system. Normal spleen. Normal pancreas. Normal bilateral adrenal glands. Normal right kidney. Normal left kidney. Normal visualized stomach. Normal small intestine. Normal colon. The appendix is visualized and appears normal. No free air or free fluid or bowel dilatation or evidence of obstruction seen. No significant retained stool seen on this study. There is minor atherosclerotic calcification of the abdominal aorta, without a demonstrated aneurysm. Normal inferior vena cava. Normal retroperitoneum. Normal urinary bladder. Unremarkable uterus and adnexa. Right adnexal clip reidentified. Normal abdominal wall. Normal osseous structures. Left posterior pelvic subcutaneous calcified granuloma noted. CT/Abdomen/Pelvis W IV Cont ONLY IMPRESSION: 1. No acute or significant process of the abdomen and pelvis. Electronically Signed: Abdias Resendiz MD at 8:38 EDT ,
--- NOTE | 2021-09-09 07:54 | EDS_ITS ---
HPI HPI - GI History of Present Illness Chief Complaint: Constipation Narrative Narrative: Patient presents with abdominal pain and constipation/diarrhea that she has had for the last few weeks. She states that a few weeks ago she noticed that the caliber of her stool was getting smaller and smaller. Over the last few days to a week she has had a small amount of liquid stool, and pain while trying to defecate. She denies any fevers or chills. She is nauseated and endorses vomiting every morning but it is more like spitting up phlegm. She denies any blood in her stool or in her spitting up/vomiting. She feels lightheaded on occasion but denies any chest pain or shortness of breath. Past surgical history includes left oophorectomy along with uterine ablation so she does not have menstrual periods. She denies any dysuria or hematuria. She is concerned about blockage given the fact that she feels as if she has to have a bowel movement but cannot and only a small amount of liquid stool comes out of her rectum. She describes abdominal pain in the middle of her abdomen. No exacerbating or alleviating factors. She does not take any opiate medications but does take trazodone to help her sleep at night. [facility] Medical History Anxiety Home Medications trazodone 100 mg PO QHS 01/03/17 [History Last Taken 01/02/17] Allergy/AdvReac Type Severity Reaction Status Date / Time escitalopram [From Lexapro] Allergy Other Verified 09/09/21 07:34 lamotrigine [From Lamictal] Allergy Hives Verified 09/09/21 07:34 nitrofurantoin Allergy Unknown Verified 09/09/21 07:34 [From Macrobid] nitrofurantoin Allergy Unknown Verified 09/09/21 07:34 macrocrystalline [From Macrobid] codeine AdvReac Nausea Verified 09/09/21 07:34 Social History Smoking Status: Current every day smoker tobacco type: cigarettes ROS ROS ED ROS Narrative Constitutional: No fever, no chills. HEENT: No sore throat. No neck pain. No loss of vision. No rhinorrhea. Cardiovascular: No chest pain. No palpitations. No pedal edema. Respiratory: No cough, no shortness of breath. Abdominal: Diffuse, central abdominal pain. Positive nausea. Positive vomiting/spitting up. Small amount of liquid stool. Positive constipation. Genitourinary: No dysuria. No hematuria. Musculoskeletal: No myalgias. No arthralgias. Neurologic: No headaches. No dizziness. No lightheadedness. Skin: No rash. No change in color. Psychiatric: No depression. No anxiety. EXAM Physical Exam Narrative Exam Narrative: Afebrile. Vital signs noted. HEENT: Normocephalic. Atraumatic. PERRL, EOMI. Neck soft and supple. No point tenderness or step off. Cardiovascular: Regular rate and rhythm. No murmurs, rubs, or gallops appreciated. Respiratory: No tachypnea. Lungs clear to auscultation bilaterally. Gastrointestinal: Abdomen soft, mild tenderness, with decreased bowel sounds. No rebound or guarding. Neurological: Awake. Alert. Nonfocal, nonlateralizing. Skin: No rash. Normal color. No pallor. Musculoskeletal: No pedal edema. Full range of motion extremities. Const Vital Signs: 09/09/21 07:32 Temperature 97.8 F Temperature Source Temporal Pulse Rate 92 Respiratory Rate 14 Blood Pressure 118/82 H Blood Pressure Mean 94 Pulse Ox 100 Oxygen Delivery Method Room Air MDM MDM MDM Narrative Medical decision making narrative: Comprehensive work-up was pursued. Patient has slightly elevated white count of 14.0 which I think is nonspecific, hemoglobin elevated at 15.9. Normal platelet count of 331. Her electrolyte panel is grossly unremarkable except for mild hypokalemia 3.4. She refused any oral medication, stating she would change her diet. AST low at 13. Lipase normal at 160. Urinalysis shows no evidence of infection. CT of the abdomen and pelvis shows no acute process. At this point in time, I feel she can be discharged safely home with follow-up. Return instructions to the emergency department were reviewed. Disposition is discharged home in stable condition. Lab Data Attestation: I reviewed the patient's lab results. Labs: Laboratory Results - last 24 hr 09/09/21 09/09/21 09/09/21 08:04 08:05 08:05 WBC 14.0 H RBC 4.83 Hgb 15.9 H Hct 44.2 MCV 91.5 MCH 32.9 H MCHC 36.0 RDW Std Deviation 40.6 RDW Coeff of Denys 12.1 Plt Count 331 MPV 9.8 Immature Gran % (Auto) 0.600 Neut % (Auto) 77.2 H Lymph % (Auto) 16.0 L [place] % (Auto) 5.1 Eos % (Auto) 0.6 Baso % (Auto) 0.5 Absolute Neuts (auto) 10.8 H Absolute Lymphs (auto) 2.24 Nucleated RBC % 0 Sodium 140 Potassium 3.4 L Chloride 105 Carbon Dioxide 28.0 Anion Gap 7 BUN 6 L Creatinine 0.81 Estim Creat Clear Calc 83.91 Est GFR (MDRD) Af Amer 102 Est GFR (MDRD) Non-Af 84 BUN/Creatinine Ratio 7.4 L Glucose 105 Calcium 8.9 Total Bilirubin 0.40 AST 13 L ALT 13 Alkaline Phosphatase 65 Total Protein 7.8 Albumin 4.3 Globulin 3.5 Albumin/Globulin Ratio 1.2 Lipase 160 Urine Color Yellow Urine Clarity Clear Urine pH 6.0 Ur Specific [place] 1.015 Urine Protein Negative Urine Glucose (UA) Normal Urine Ketones Negative Urine Occult Blood 10 H Urine Nitrite Negative Urine Bilirubin Negative Urine Urobilinogen Normal Ur Leukocyte Esterase Negative Urine RBC 0-5 SEEN Urine WBC 0 SEEN Ur Squamous Epith Cells 0-5 SEEN Urine Bacteria 0 SEEN Urine Mucus 0 SEEN Radiography Diagnostic Testing: Clinical Impression(s) from Imaging Studies Abdomen/Pelvis CT 09/09/21 07:53 IMPRESSION: 1. No acute or significant process of the abdomen and pelvis. Electronically Signed: Abdias Resendiz MD at 8:38 EDT Reading Location ID and State: [facility] / [place] , Service support , Discharge Plan Triage Chief Complaint: Constipation ED Provider: Xavi Biggs Dx/Rx/DC Orders Clinical Impression: Abdominal pain Instructions: ED Abdominal Pain Unkn Cause Fem Prescriptions: No Action trazodone 100 MG tablet 100 mg PO QHS RF: 0 Stand Alone Forms: ED Work / School Excuse Primary Care Provider: Tamika Mario Referrals: Tamika Mario MD [Primary Care Provider] - 3-5 Days if not improving Disposition Disposition: Home, Self Care
[2021-09-09 08:09] LABS: Bacteria 0 SEEN /hpf (None Seen); Mucous, Urine 0 SEEN /hpf (<or=2+); White Blood Cells 0 SEEN /hpf (0-5)
[2021-09-09] MEDS: 0.9% Normal Saline 1,000 ML 1000 ML IV (08:09)
[2021-09-09 08:10] LABS: Color, Urine Yellow (Yellow); Glucose, Dipstick Normal (Normal); Ketone-Dipstick Negative (Negative); Leukocyte Esterase-Dipstick Negative /ul (Negative); Nitrite-Dipstick Negative (Negative); Occult Blood-Urine 10 /ul (Negative); Protein-Dipstick Negative (Negative); Specific Gravity, Urine 1.015 (1.002-1.030); Urine Bilirubin Dipstick Negative (Negative); Urine Clarity Clear (Clear); Urine Urobilinogen Normal (Normal)
[2021-09-09 08:13] LABS: Absolute Lymphocyte Count 2.24 X10^3/uL (0.83-4.51); Absolute Neutrophil Count 10.8 X10^3/uL (2.0-7.7); Basophil# 0.07 X10^3/uL; Basophil% 0.5 % (0-1); Eosinophil# 0.09 X10^3/uL; Eosinophils% 0.6 % (0-5); Hematocrit 44.2 % (37-47); Hemoglobin 15.9 g/dL (12.0-15.0); Lymphocyte # 2.24 X10^3/ul (0.83-4.51); Mean Corpuscular Hgb 32.9 pg (27.0-32.0); Mean Corpuscular Volume 91.5 fL (81-99); Mean Platelet Vol. 9.8 fl (6.2-12.0); Monocyte# 0.71 X10^3/uL; Monocyte% 5.1 % (0-10); NRBC Flagged by Analyzer 0 % (0-5); Neutrophil # 10.81 X10^3/uL (2.7-7.7); Neutrophil % 77.2 % (47-70); Platelet Count 331 K/mm3 (150-450); RBC Distribution Width CV 12.1 % (11.6-14.6); RBC Distribution Width SD 40.6 fl (35.1-43.9); Red Blood Count 4.83 M/mm3 (4.2-5.4)
[2021-09-09 08:16] LABS: Red Blood Cells-Urine 0-5 SEEN /hpf (0-5); Squamous Epithelial Cells - UA 0-5 SEEN /hpf (5-10)
[2021-09-09 08:29] LABS: ALB/GLOB Ratio 1.2 RATIO (0.9-2.4); AST(SGOT) 13 U/L (15-37); Alanine Aminotransfer ALT/SGPT 13 U/L (13-56); Albumin, Serum 4.3 g/dL (3.2-5.0); Alkaline Phosphatase 65 U/L (45-117); Anion Gap 7 (5-15); BUN 6 mg/dL (7-18); BUN/Creat Ratio 7.4 RATIO (10-20); Calcium,Total 8.9 mg/dL (8.5-10.1); Chloride 105 mmol/L (98-107); Creatinine, Serum 0.81 mg/dL (0.55-1.02); EST Glomerular Filtration Rate 84 mL/min (>60); Est Glom Filt Rate - Afr Amer 102 mL/min (>60); Estimated Creatinine Clearance 83.91 ml/min; Globulin 3.5 g/dL (2.2-4.2); Glucose 105 mg/dL (74-106); Lipase 160 U/L (73-393); Potassium 3.4 mmol/L (3.5-5.1); Protein, Total 7.8 g/dL (6.4-8.2); Sodium Level 140 mmol/L (136-145)
[2021-09-09 10:00] VITALS: BP 135/60; PULSE 68; RESP 16; O2SAT 100
== END 2021-09-09 10:04 | disposition home or self-care (01) ==
PROVIDERS: Emergency Provider Emergency Medicine; PCP Internal Medicine; Visit Provider Emergency Medicine
DX: R10.84 Generalized abdominal pain (principal); R11.2 Nausea with vomiting, unspecified; D72.829 Elevated white blood cell count, unspecified; E87.6 Hypokalemia; F17.210 Nicotine dependence, cigarettes, uncomplicated
CPT/HCPCS: 74177; 80053; 81001; 83690; 85025; 99283; Q9967

== ENCOUNTER 2022-01-05 13:09 | Emergency (ER) | payer MEDICAID, SELFPAY ==
[2022-01-05 13:10] VITALS: BP 129/83; PULSE 82; RESP 16; TEMP 36.8; O2SAT 97; BMI 21.6
--- NOTE | 2022-01-05 13:30 | RAD_ITS ---
STUDY: X-RAY CHEST REASON FOR EXAM: Female, 41 years old. Pain TECHNIQUE: PA and lateral views of the chest. COMPARISON: Comparison is made with prior study dated 05/29/2012. FINDINGS: Hyperinflation. The lungs are clear. There is no demonstrated pleural abnormality. Normal size heart. Normal mediastinum and carla. Normal visualized pulmonary arteries. Normal visualized aortic arch and descending thoracic aorta. Normal visualized thoracic spine. Normal visualized ribs, clavicles, and shoulders. There is no demonstrated abnormality of the visualized soft tissue structures of the upper abdomen. RAD/Chest PA and Lateral IMPRESSION: Hyperinflation. The lungs are clear. Electronically Signed: Cristhian Wilhelm MD at 14:01 EDT ,
--- NOTE | 2022-01-05 13:38 | EX.ED.DYSGE1 ---
HPI History of Present Illness Chief Complaint: General Illness Narrative Narrative: Patient presents with reported hematemesis. She states that she wants to just make sure that she is okay. She went to [facility] who referred her to the emergency department. She states that she was concerned because 4 to 5 years ago she was here and had projectile vomiting of blood where she tore part of her esophagus. She states she needed tubes down her throat and admission. She became concerned because yesterday she had nausea and vomiting. She drank water and it came back up. She said that she tasted blood but denies david hemoptysis or hematemesis. She does not take blood thinners. She states that her throat is sore when she swallows but she does not have chest pain or shortness of breath. She denies any other bleeding diathesis. [facility] Medical History Anxiety Esophageal tear Home Medications trazodone 100 mg tablet 100 mg PO QHS 01/03/17 [History Last Taken 01/02/17] Allergy/AdvReac Type Severity Reaction Status Date / Time escitalopram [From Lexapro] Allergy Other Verified 09/09/21 07:34 lamotrigine [From Lamictal] Allergy Hives Verified 09/09/21 07:34 nitrofurantoin Allergy Unknown Verified 09/09/21 07:34 [From Macrobid] nitrofurantoin Allergy Unknown Verified 09/09/21 07:34 macrocrystalline [From Macrobid] codeine AdvReac Nausea Verified 09/09/21 07:34 Social History Smoking Status: Current every day smoker tobacco type: cigarettes ROS ROS ED ROS Narrative Constitutional: No fever, no chills. HEENT: No sore throat. No neck pain. No loss of vision. No rhinorrhea. Pain with swallowing. Cardiovascular: No chest pain. No palpitations. No pedal edema. Respiratory: No cough, no shortness of breath. Abdominal: No abdominal pain. No nausea. Positive vomiting. Tasted blood in vomit. Genitourinary: No dysuria. No hematuria. Musculoskeletal: No myalgias. No arthralgias. Neurologic: No headaches. No dizziness. No lightheadedness. Skin: No rash. No change in color. Psychiatric: No depression. No anxiety. EXAM Physical Exam Narrative Exam Narrative: Afebrile. Vital signs noted. HEENT: Normocephalic. Atraumatic. PERRL, EOMI. Neck soft and supple. No point tenderness or step off. Airway patent. No blood in oropharynx noted. Cardiovascular: Regular rate and rhythm. No murmurs, rubs, or gallops appreciated. Respiratory: No tachypnea. Lungs clear to auscultation bilaterally. Gastrointestinal: Abdomen soft, nontender, with normoactive bowel sounds. No rebound or guarding. Neurological: Awake. Alert. Nonfocal, nonlateralizing. Skin: No rash. Normal color. No pallor. Musculoskeletal: No pedal edema. Full range of motion extremities. Const Vital Signs: 01/05/22 13:10 Temperature 98.2 F Temperature Source Temporal Pulse Rate 82 Respiratory Rate 16 Blood Pressure 129/83 H Blood Pressure Mean 98 Pulse Ox 97 Oxygen Delivery Method Room Air MDM MDM MDM Narrative Medical decision making narrative: Pulse ox is 97% on room air. I will obtain a two-view chest x-ray to make sure that there is no evidence of Boerhaave's. I do not feel that NG tube is indicated as she is not having david hematemesis. She denies any blood in her stool. She is not tachycardic. I feel a chest x-ray would be more reassuring for her additionally. Her chest x-ray in 2 views was interpreted by myself. It shows no acute process. At this point in time, I feel she can be discharged safely home with follow-up. Her medical screening exam is unremarkable. Should she experiencing david hematemesis, she is to return immediately. Disposition is discharged home in stable condition. Radiography Diagnostic Testing: Clinical Impression(s) from Imaging Studies Chest X-Ray 01/05/22 13:30 IMPRESSION: Hyperinflation. The lungs are clear. Electronically Signed: Cristhian Wilhelm MD at 14:01 EDT , Discharge Plan Triage Chief Complaint: General Illness Other Complaint: Nausea/Vomiting ED Provider: Xavi Biggs Dx/Rx/DC Orders Clinical Impression: Hematemesis, Odynophagia, Encounter for medical screening examination Instructions: ED Diet for Vomiting or ..., ED Screening Exam Medical Nonurgent, ED Dysphagia (Adult) Prescriptions: No Action trazodone 100 MG tablet 100 mg PO QHS Primary Care Provider: Tamika Mario Referrals: Tamika Mario MD [Primary Care Provider] - 3-5 Days Disposition Disposition: Home, Self Care
== END 2022-01-05 14:50 | disposition home or self-care (01) ==
PROVIDERS: Emergency Provider Emergency Medicine; PCP Internal Medicine; Visit Provider Emergency Medicine
DX: K92.0 Hematemesis (principal); R13.10 Dysphagia, unspecified; F41.9 Anxiety disorder, unspecified; F17.210 Nicotine dependence, cigarettes, uncomplicated; Z79.899 Other long term (current) drug therapy
CPT/HCPCS: 71046; 99282

== ENCOUNTER 2022-03-15 12:25 | Emergency (ER) | payer MEDICAID, SELFPAY ==
[2022-03-15 12:27] VITALS: BP 164/112; PULSE 77; RESP 16; TEMP 36.4; O2SAT 98; BMI 21.6
--- NOTE | 2022-03-15 12:29 | RAD_ITS ---
EXAM: XR RIGHT HAND COMPLETE, 3 OR MORE VIEWS CLINICAL INDICATION: POSS FB 4th finger TECHNIQUE: Frontal, lateral and oblique views of the right fourth finger. This report was created using [employer] report generation technology. COMPARISON: None. FINDINGS: BONES/JOINTS: Unremarkable. No acute fracture. No subluxation. Normal alignment. Preservation of the joint space. No sclerotic or destructive changes observed. SOFT TISSUES: Unremarkable. No soft tissue swelling or gas. No radiopaque foreign body. RAD/Finger(s) Min 2 Views IMPRESSION: Negative right fourth finger x-rays. Electronically Signed: Xavi Serrano MD at 12:54 EDT ,
--- NOTE | 2022-03-15 13:59 | ED.RN ---
PT STATES THAT LACERATION TO R RING FINGER WAS DONE AT WORK ON [employer]. PT STATES THAT HER WORK TOLD HER SHE COULD FILE IT UNDER WORKERS COMPENSATION, BUT PT DECLINES TO DO THAT AT THIS TIME AND WANTS HER INSURANCE BILLED FOR THIS VISIT.
--- NOTE | 2022-03-15 14:09 | EX.ED.UPPERE ---
HPI History of Present Illness HPI Narrative: Right long finger laceration. Also splinter in the right long finger for approximately 4 weeks. Chief Complaint: Laceration Informant: patient Occured/Mechanism Mechanism/Context: Yes injury Onset/Context/Timing Onset: Today and Weeks Timing: Continuous Current Severity: Mild Maximum Severity: Mild Narrative Narrative: 42-year-old female no seen past medical history. [id number]. Today using a tomato slicer has a laceration to her right ring finger tip. Also she has had a splinter in the right ring finger for approximately 4 weeks she like me to try to take that out. States her tetanus is greater than 10 years old need to be updated. Denies any other complaints. Tetanus Immunization: >10 years Prior similar symptoms: No Recent Illness/Hospitalization: No PFSH PFSH Medical History Anxiety Esophageal tear Home Medications trazodone 100 mg tablet 100 mg PO QHS 01/03/17 [History Last Taken 01/02/17] Allergy/AdvReac Type Severity Reaction Status Date / Time escitalopram [From Lexapro] Allergy Other Verified 03/15/22 12:29 lamotrigine [From Lamictal] Allergy Hives Verified 03/15/22 12:29 nitrofurantoin Allergy Unknown Verified 03/15/22 12:29 [From Macrobid] nitrofurantoin Allergy Unknown Verified 03/15/22 12:29 macrocrystalline [From Macrobid] codeine AdvReac Nausea Verified 03/15/22 12:29 Social History Smoking Status: Current every day smoker tobacco type: cigarettes ROS ROS ED ROS Narrative Denies recent illness. Review of Systems ROS Unobtainable: Denies due to encephalopathy Constitutional Constitutional ED: Denies chills or fever(s) Eyes Eyes: Denies blurry vision ENT ENT ED: Denies ear pain Cardiovascular Cardiovascular: Denies chest pain Respiratory/Chest Respiratory/Chest: Denies cough Gastrointestinal Gastrointestinal: Denies abdominal pain Genitourinary Genitourinary ED: Denies dysuria Musculoskeletal Musculoskeletal: Denies back pain Integumentary Denies abscess Neurologic Neurologic: Denies headache(s) Psychiatric Psychiatric: Denies anxiety Endocrine Endocrinology: Denies cold intolerance Hematologic/Lymphatic Hematologic/Lymphatic: Denies easy bleeding Allergic/Immunologic Allergic/Immunologic ED: Denies mouth swelling EXAM Physical Exam Narrative Exam Narrative: -year-old female no acute distress. Vital signs stable afebrile. Exam normal except right ring finger at the tip there is a small laceration is currently not actively bleeding. Is small amount of dried blood. Also on the ulnar side there is a splinter that appears to be infected. However there is no cellulitis. There is swelling and tenderness. Normal range of motion is intact. Finger is neurovascularly intact. No bony deformity. Const Vital Signs: 03/15/22 12:27 Temperature 97.5 F L Temperature Source Temporal Pulse Rate 77 Respiratory Rate 16 Blood Pressure 164/112 H Blood Pressure Mean 129 Pulse Ox 98 Oxygen Delivery Method Room Air Positive well nourished and well developed; Negative for obese, cachectic, contractures or unkempt General Appearance ED: well developed and NAD; Negative for unkempt, cachectic, contractures, cyanotic or diaphoretic Nutritional Appearance: Negative for cachectic or obese HEENT Reports moist mucous membranes normocephalic and atraumatic; Negative for trauma or tenderness Eyes PERRL and EOMs intact bilaterally General Eye ED: Negative for other Neck full ROM and supple General: Negative for tenderness Lymph Lymphatic: Negative for other Chest Wall inspection of chest normal and palpation of chest normal Chest: Negative for other Resp normal respiratory effort and clear to auscultation bilaterally Effort and Inspection: Negative for pain with movement Auscultation: Negative for rales, rhonchi, wheezes, diminished lung sounds or other Cardio regular rate, regular rhythm, S1 normal heart sound, S2 normal heart sound and no murmurs Rate: Negative for bradycardia or tachycardic Rhythm: Negative for abnormal rhythm GI non-tender, non-distended and no masses Inspection: Negative for abdominal distention Auscultation: normoactive bowel sounds Palpation: soft; Negative for tender or guarding Neuro oriented x3, CN's II-XII intact bilaterally, moves all extremities and no focal motor deficits Sensorium / Orientation: alert, oriented to person, oriented to place and oriented to time; Negative for orientation impaired, lethargic or stuporous Motor Exam: strength 5/5 throughout Psych mental status grossly normal Appearance: Negative for unkempt Attitude: No agitated Mood & Affect: Negative for depressed Skin General Skin Exam: Negative for petechiae Lesions: no lesions Rashes: no rashes Trauma: laceration; Negative for no lacerations or abrasions MDM MDM MDM Narrative Medical decision making narrative: Right ring finger with the distal laceration and a splinter at another site in the right ring finger that will need to be removed. While the patient was waited she went to go outside to smoke the nurses explained to her this is a smoke-free campus. She was given a milligram of Ativan for her anxiety because she stated I need something for my anxiety. Proximal I went in several times to remove this splinter from the patient's finger and I think the left without being discharged. Nurses also checking around to see if they may have gone out in the waiting room or something. Lab Data Lab results narrative: X-rays were done of the right ring finger which shows no acute abnormality. AP and lateral 2 views interpreted myself and radiologist shows no foreign body seen. No acute bony abnormality. Radiography Diagnostic Testing: Clinical Impression(s) from Imaging Studies Finger X-Ray 03/15/22 12:29 IMPRESSION: Negative right fourth finger x-rays. Electronically Signed: Xavi Serrano MD at 12:54 EDT Reading Location ID and State: [facility] / [place] , Service support , Discharge Plan Triage Chief Complaint: Laceration ED Provider: Pablo Jarquin Dx/Rx/DC Orders Clinical Impression: Finger laceration, Foreign body (FB) in soft tissue Prescriptions: No Action trazodone 100 MG tablet 100 mg PO QHS Primary Care Provider: Tamika Mario Referrals: Tamika Mario MD [Primary Care Provider] - Activity Restrictions/Additional Instructions: Patient left prior to being discharged. Disposition Disposition: Home, Self Care
[2022-03-15] MEDS: Diphth,Pertuss(Acell),Tet Vac 0.5 ML Vial IM (14:12)
[2022-03-15] MEDS: Lidocaine 1% (20 ml mdv) 20 ML Vial 10 ML INFILT (14:13)
[2022-03-15] MEDS: LORazepam 1 MG Tablet PO (14:58)
--- NOTE | 2022-03-15 14:59 | ED.RN ---
PT AGITATED AT THIS TIME AND WANTING TO GO OUTSIDE TO SMOKE. THIS RN TELLS PT THAT [facility] IS A SMOKE FREE CAMPUS. PT BECOMES MORE AGITATED AND THREATENS TO LEAVE. THIS RN TELLS DR DAVILA AND DR DAVILA GIVES VERBAL ORDER FOR 1MG PO ATIVAN.
--- NOTE | 2022-03-15 15:55 | NURSING ---
pt not in room, looked around unit and outside pt not found. updated.
== END 2022-03-15 15:55 | disposition home or self-care (01) ==
PROVIDERS: Emergency Provider Emergency Medicine; PCP Internal Medicine; Visit Provider Emergency Medicine
DX: S61.214A Laceration without foreign body of right ring finger without damage to nail, initial encounter (principal); F41.9 Anxiety disorder, unspecified; S60.454A Superficial foreign body of right ring finger, initial encounter; F17.210 Nicotine dependence, cigarettes, uncomplicated; W26.8XXA Contact with other sharp object(s), not elsewhere classified, initial encounter; Z79.899 Other long term (current) drug therapy; Z53.29 Procedure and treatment not carried out because of patient's decision for other reasons; Z23 Encounter for immunization
CPT/HCPCS: 73140; 90471; 90715; 99283

== ENCOUNTER → 2022-05-12 | Outpatient (CLI) | payer MEDICAID, SELFPAY ==
--- NOTE | 2022-05-12 14:28 | US_ITS ---
STUDY: ULTRASOUND BREAST - RIGHT REASON FOR EXAM: Female, 42 years old. Palpable lump in the right breast. TECHNIQUE: Axial and longitudinal images of the RIGHT breast were performed with a high resolution ultrasound transducer. # OF IMAGES: 18 COMPARISON: Comparison is made with prior mammogram done earlier in the day. FINDINGS: RIGHT Breast: The deep inferior medial aspect of the right breast was examined with ultrasound. The palpable abnormality corresponds to a 1.1 cm x 1.4 cm x 0.4 cm slightly irregular hypoechoic nodular density. Biopsy is recommended. US/Breast Limited Unilateral IMPRESSION: The palpable abnormality in the deep inferior medial aspect of the right breast corresponds to a 1.1 cm x 1.4 cm x 0.4 sinus slightly irregular hypoechoic nodular density. Biopsy is recommended. ASSESSMENT CATEGORY: BIRADS Category 4: Suspicious - Biopsy Should Be Considered. A letter regarding these results will be sent to the patient by the facility within 30 days. Electronically Signed: Cristhian Wilhelm MD at 15:37 EST ,
--- NOTE | 2022-05-12 14:28 | BI_ITS ---
MAMMOGRAPHY - BILATERAL DIAGNOSTIC REASON FOR EXAM: Female, 42 years old. 2-3 month history of palpable lump in the inferior deep medial aspect of the right breast. PERTINENT HISTORY: Non-contributory. TECHNIQUE: Digital bilateral breast s[place] (3D mammographic acquisition) in the CC and MLO projections. 2-D mediolateral oblique (MLO) and craniocaudad (CC) views of both breasts were obtained. Compression spot view of the inferior aspect of the right breast was obtained as well. CAD: Full Field Digital Mammography with Computer Added Detection was performed. COMPARISON: None. Baseline examination. FINDINGS: Breast Composition: The breasts are extremely dense, which lowers the sensitivity of mammography. There are no dominant masses or suspicious calcifications. No other significant abnormalities are identified. BI/DIAG MAMM W/CAD, BILAT IMPRESSION: Negative diagnostic mammogram. With the patient''s history of a palpable lump in the deep inferior medial aspect of the right breast, correlation with ultrasound is recommended. ASSESSMENT CATEGORY: BIRADS Category 0: Incomplete. Need additional imaging evaluation. A letter regarding these results will be sent to the patient by the facility within 30 days. Approximately 10% of breast cancers are not detected by mammography. A normal mammogram should not delay biopsy of a clinically suspicious abnormality. Electronically Signed: Cristhian Wilhelm MD at 15:13 EST ,
== END | disposition home or self-care (01) ==
LOC: OPBI 14:26
PROVIDERS: PCP Internal Medicine; Visit Provider Internal Medicine
DX: N64.4 Mastodynia (principal); N63.14 Unspecified lump in the right breast, lower inner quadrant
CPT/HCPCS: 77062; 76642; 77066; G0279

== ENCOUNTER 2022-06-07 12:09 | Day surgery (SDC) | payer MEDICAID, SELFPAY ==
[2022-06-07] VITALS (8 sets, daily range): BP systolic 94–111; BP diastolic 48–75; PULSE 57–82; RESP 16–18; TEMP 36.6–37.3; O2SAT 16–100; BMI 20.5
[2022-06-07 12:50] LABS: Internal QC Validated? YES +Cl - CLEAR BKGD; Pregnancy, Urine Negative Negative
[2022-06-07] MEDS: Lactated Ringers 1,000 ML 15 ML IV (12:53)
--- NOTE | 2022-06-07 12:58 | PCM.HP.BLA ---
History and Physical Date of Admission: 06/07/22 Intake Vital Signs ? 03/15/2212:27 05/31/2215:08 Height 5 ft 5 in 5 ft 5 in Weight: 130 lb 128 lb BMI 21.6 21.2 BP 164/112 H 122/81 H Blood Pressure Location ? Rt brachial Position ? Sitting Respiration 16 18 Pulse 77 ? Temp 97.5 F L ? Temp Source Temporal ? Pulse Oximetry (%) 98 ? 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 Anxiety Esophageal tear Social History? Smoking Status:? Current every day smoker tobacco type: cigarettes HPI HPI HPI: Patient is here with a painful mass in the medial right breast.? Patient notes this is been there since the beginning of summer.? She says it is growing and has become uncomfortable.? She has no family history of breast cancer. ROS General General: No weight change, appetite, fatigue, colon cancer, breast cancer or weakness HEENT HEENT: No difficulty swallowing, eye injury, eye surgery, swollen glands or hoarseness Endo Endocrine: No thyroid disease, diabetes mellitus, thyroid cancer, Hair loss, heat intolerance or cold intolerance Skin Skin: No rash or changing moles Breast Breast: No left breast lump, right breast lump, nipple discharge, breast pain, abnormal mammogram, abnormal US or breast enlargement Musc Musculoskeletal: No back problems, arthritis, rheumatoid arthritis, gout or joint pain Cardio Cardiovascular: No murmur, pacemaker, heart disease, atrial fibrillation, high blood pressure, heart attack, heart stent, palpitations, shortness of breat with exertion or chest pain Psych Psychiatric: Yes anxiety; No depression or hearing voices Resp Respiratory: No shortness of breath, No sleep apnea, No cough, No COPD, No asthma, No emphysema and No wheezing Gastro Gastrointestinal: No abdominal pain, No nausea or vomiting, No diarrhea, No constipation, No blood in stool, No acid reflux, No hemorrhoids, No ulcers, No gallbladder problem and No black,tarry stools Star Hematologic: No blood thinners, No blood disorders, No bleeding, No anemia and No blood clots Neuro Neurologic: No system reviewed and no additional complaints, except as documented, No as per HPI, No abnormal gait, No abnormal hearing, No abnormal movements, No abnormal speech, No behavioral changes, No burning sensations, No confusion, No convulsions, No disequilibrium, No dizziness, No localized weakness, No frequent falls, No headache(s), No lack of coordination, No loss of vision, No memory loss, No numbness, No other visual disturbances, No radicular pain, No restless legs, No sensory deficit, No syncope, No tingling, No tremor(s), No weakness and No other Exam Const General: cooperative Orientation: alert and oriented x3 [facility] Head: normal to inspection Neck Neck: normal visual inspection and full ROM Chest Chest palpation & inspection: normal inspection of the chest Breast Palpation: Yes breast mass lrb: Right Resp Effort & Inspection: normal respiratory effort Auscultation: clear to auscultation bilaterally Cardio Rate: regular rate Rhythm: regular rhythm GI Inspection: non-distended Palpation: soft and nontender Skin General: no rashes or lesions noted Neuro General: patient alert and patient oriented x3 Extrem General: full ROM Psych Appearance: grossly normal Mental Status: mental status grossly normal Assessment and Plan Assessment and Plan (1) Breast mass, right: ?Status:?Acute ?Qualifiers: ?Breast mass location:?lower inner quadrant? Qualified Code(s):?N63.14 - Unspecified lump in the right breast, lower inner quadrant (2) Anxiety due to invasive procedure: ?Status:?Acute Plan The patient has a breast mass which was given a BI-RADS score 4.? Patient reports it is painful and she would like it removed as it is causing her discomfort and anxiety.? She has a supreme amount of anxiety having it biopsied or removed while she is awake.? I discussed excisional biopsy in the operating room under sedation.? Patient would like excisional biopsy.? I discussed the risks of bleeding and infection and need for further surgery if this came back cancerous.? Patient understands and is willing to proceed. Neo Ta MD Pager: [facility] [address] [place] [address], [address] [place] [address] Office: I have seen the patient and reviewed the history and physical. There are no changes.
[2022-06-07] MEDS: Cefazolin 2 GM in 0.9% Normal Saline 100 ML IV (13:24)
[2022-06-07] MEDS: Bupivacaine Mpf 0.5% 30 ML VIAL (13:30)
--- NOTE | 2022-06-07 13:40 | BR_PTH ---
PATIENT: NEEL MEDINA LOC: [facility] [place] U[place][id number] AGE/SX: 42/F ROOM: RE06/07/[address]: Dr. Neo Ta MD : 1980 BED: DIS: 06/07/2022 SPEC #: [id number] RECD: 06/07/22 16:00 STATUS: JEAN FARMER #: [id number] YAMILA: 06/07/22 13:[address]: Neo Ta DEPT: SURGICAL PATHOLOGY RECD BY: Chanelle Rincon ENTERED: 06/08/22 07:35 SP TYPE: MAMOPLASTY OTHR DR: Dr. Tamika Mario MD Tissues: Right breast, NOS Procedures: Surgery Specimen Level IV HEADER OPERATION: Excisional breast biopsy PRE-OP DIAGNOSIS: Right breast mass TISSUE SUBMITTED: Right breast mass MICROSCOPIC DIAGNOSIS Right breast mass, excisional biopsy: Fibroadenomatous changes. Focal duct ectasia. No evidence of malignancy. AM:[place] 06/09/2022 COMMENT Case has been reviewed in consultation with Dr. Armstrong who concurs with the above diagnosis. IDC:JEANNE MICROSCOPIC DESCRIPTION Slides are reviewed. GROSS DESCRIPTION Received in fixative is one container labeled with the patient's name and designated right breast mass. The specimen consists of two pieces of yellow fibroadipose tissue measuring 2.5 x 1.5 x 1 cm and 1.5 x 1 x 0.6 cm. The largest piece is serially sectioned and smaller piece is bisected. The entire specimen is submitted in three cassettes as follows: 1 & 2 ? larger piece, 3 ? smaller piece. / JEANNE:[place] 06/08/2022 TC:5 CPT: 39976
--- NOTE | 2022-06-07 14:01 | PCM.OPRPT ---
Report of Operation Date of Procedure: 06/07/22 Pre-Operative Diagnosis: Right breast mass Post-Operative Diagnosis: Same Surgery/Procedure Performed:: Excisional biopsy of right breast mass Specimen's removed: Right breast mass Description of Procedure: Patient was brought back to the operating room and general anesthesia was induced. Right breast was prepped and draped in usual sterile fashion. Ultrasound was used to localize the mass and a yohan was placed directly overlying and then an incision was marked and injected with local anesthetic. A small incision was made with a scalpel. The area underlying this was dissected free using electrocautery and sent for pathology. The cavity was irrigated and suctioned and then closed with interrupted 3-0 Vicryl suture in a running 4-0 Monocryl suture. Dermabond was applied. Patient was then awoken and taken to PACU in stable condition. Patient tolerated the procedure well. Admit VTE Documentation VTE Mechan Device Prophylaxis: SCD's
--- NOTE | 2022-06-07 14:02 | EX.PCM.DISCH ---
Discharge Instructions Procedure Breast Surgery Diet Discharge Diet: No restrictions Activity Discharge Activity: May Not Drive (for 2-3 days or while taking narcotic pain medications.) May shower in (days): 1 Lifting Restrictions: none Dressing / Incision Call your doctor if your incision/area has: Continuous Slow Oozing, Sudden Increased Bleeding, Increased Pain/ Swelling, Increased Redness, Foul Smelling Discharge and Swelling at the incision site Call your doctor if you observe: Fever of 101 or Higher Suture Line Care: Avoid Pulling/Pushing and Avoid Pinching/Bending Cleanse incision/area with: Soap & Water Follow Up Care Please Follow Up With: Neo Ta MD When: Please call to schedule 2 week follow up appointment. [phone] Test Results: Our office will call you with pathology results later this week. Discharge Plan Admission Attending Provider: Neo Ta Primary Care Provider: Tamika Mario Discharge Orders/Prescriptions Prescriptions: New oxycodone 5 mg tablet 5 mg PO Q4H PRN (Reason: pain) 5 Days Qty: 10 0RF No Action trazodone 100 MG tablet 100 mg PO QHS Referrals / Follow Up: Tamika Mario MD [Primary Care Provider] - Disposition Disposition (needs filled in before D/C Order can be placed): Home, Self Care
[2022-06-07] MEDS: Ibuprofen 600 MG Tablet PO (14:36)
== END 2022-06-07 15:49 | disposition home or self-care (01) ==
LOC: SDC 12:10 → AC 12:11
PROVIDERS: Anesthesiology; PCP Internal Medicine; Referring Provider Surgery; Visit Provider Surgery
PROC: (CPT 19120; principal; 2022-06-07 13:25)
DX: D24.1 Benign neoplasm of right breast (principal); N60.41 Mammary duct ectasia of right breast; F41.9 Anxiety disorder, unspecified; N64.4 Mastodynia; F17.210 Nicotine dependence, cigarettes, uncomplicated; Z79.899 Other long term (current) drug therapy
CPT/HCPCS: 19120; 81025; 88305; J7120; J2405

== ENCOUNTER 2022-09-04 09:56 | Emergency (ER) | payer BC, MEDICAID, SELFPAY ==
[2022-09-04 09:57] VITALS: BP 112/62; PULSE 125; RESP 16; TEMP 36.6; O2SAT 95; BMI 20.5
[2022-09-04 10:09] VITALS: BP 115/83; PULSE 112; RESP 18; TEMP 36.5; O2SAT 97
--- NOTE | 2022-09-04 10:25 | ED.VIS.DENTA ---
HPI History of Present Illness Chief Complaint: Dental Informant: patient Narrative Narrative: Worsening left upper incisor pain for the past 3 to 4 weeks hot and cold sensitivities. History of partials which is causing discomfort. She tried calling her dentist for urgent evaluations however reported dentist is not in town therefore was scheduled out to March. She tried calling Damaris Middleton who also had no openings. She has been using Tylenol, ibuprofen oral gel. She states has been exudative drainage. No fevers. Prior similar symptoms: Yes PFSH PFSH Medical History Anxiety Cardiology follow-up encounter Esophageal tear Hepatitis History of CHF (congestive heart failure) History of echocardiogram History of stress test Smoker Wears partial dentures Home Medications trazodone 100 mg tablet 100 mg PO QHS 01/03/17 [History Last Taken 06/06/22] oxycodone 5 mg tablet 5 mg PO Q4H PRN pain 5 days #10 tabs 06/07/22 [Rx Last Taken Unknown] oxycodone-acetaminophen 5 mg-325 mg tablet 1 tab PO Q6H PRN PRN Pain 3 days #12 TABLETS 09/04/22 [Rx Last Taken Unknown] penicillin V potassium 250 mg tablet 500 mg PO 4X/DAY #40 tabs 09/04/22 [Rx Last Taken Unknown] Allergy/AdvReac Type Severity Reaction Status Date / Time escitalopram [From Lexapro] Allergy Other Verified 09/04/22 10:00 lamotrigine [From Lamictal] Allergy Hives Verified 09/04/22 10:00 nitrofurantoin Allergy Unknown Verified 09/04/22 10:00 [From Macrobid] nitrofurantoin Allergy Unknown Verified 09/04/22 10:00 macrocrystalline [From Macrobid] codeine AdvReac Nausea Verified 09/04/22 10:00 Family History no significant family his Surgical History History of tonsillectomy and adenoidectomy Hx of removal of ovary Hx of surgical procedure Social History household members: family housing: house Smoking Status: Current every day smoker tobacco type: cigarettes ROS ROS ED Constitutional Constitutional ED: Denies chills, fever(s) or sweats Eyes Eyes: Denies change in vision ENT ENT ED: Reports other Details: Dental pain ; Denies dysphagia or sore throat Cardiovascular Cardiovascular: Denies chest pain, leg edema, palpitations or racing heartbeat Respiratory/Chest Respiratory/Chest: Denies cough, dyspnea or dyspnea on exertion Gastrointestinal Gastrointestinal: Denies abdominal pain, diarrhea, nausea or vomiting Genitourinary Genitourinary ED: Denies dysuria, hematuria or urinary frequency Musculoskeletal Musculoskeletal: Denies back pain, extremity pain or neck pain Integumentary Denies rash or wounds Neurologic Neurologic: Denies headache(s), paresthesias or weakness EXAM Physical Exam Const Vital Signs: 09/04/22 09:57 09/04/22 10:09 Temperature 97.9 F 97.7 F L Temperature Source Temporal Oral Pulse Rate 125 H 112 H Respiratory Rate 16 18 Blood Pressure 112/62 115/83 H Blood Pressure Mean 78 93 Pulse Ox 95 97 Oxygen Delivery Method Room Air Room Air Positive well nourished and well developed General Appearance ED: well developed and NAD HEENT Reports moist mucous membranes HEENT Narrative: Partials removed left upper which included tooth #9 and 10. She had tenderness to percussion tooth #11 there is a cavity at the base, there is minimal gum swelling there is no fluctuance no drainage or bleeding. There was dental fillings to tooth #12 and 13 with no tenderness to percussion. Airway patent. normocephalic and atraumatic Eyes PERRL, EOMs intact bilaterally and conjunctivae normal General Eye ED: Yes normal appearance of both eyes Neck no lymphadenopathy and supple General: Negative for tenderness Chest Wall Chest: Negative for tenderness Resp normal respiratory effort and normal air movement Effort and Inspection: symmetric chest movement; Negative for respiratory distress Cardio regular rhythm and no murmurs Rate: tachycardic Peripheral Pulses: pulses 2+ throughout GI normal to inspection, nondistended, normoactive bowel sounds and non-tender Palpation: Negative for guarding or rebound tenderness present Back/Spine no CVA tenderness and no thoracic nor lumbar tenderness Extremity normal to inspection General Extremety ED: Negative for edema or tenderness General Extremity: Negative for edema Neuro oriented x3 and no sensory deficits noted Sensorium / Orientation: awake and alert Skin no rashes or lesions noted and no wounds MDM MDM MDM Narrative Medical decision making narrative: Interventions / MDM: Differential diagnosis: Dentalgia, dental caries Diagnosis considered but do not suspect: Dental abscess however there is no fluctuance My EKG interpretation: N/A Imaging independently reviewed and interpreted by myself: N/A External documents reviewed: N/A Test considered but not ordered:N/A ED course: Patient afebrile nontoxic tachycardic due to pain. She drove herself here. Examination concerns for dental caries causing dentalgia. She has been using Tylenol ibuprofen and Orajel. She drove herself here. She is attempting to see the dentist with no openings. We will start her on penicillin with a prescription along with short course for oxycodone use for pain control. Dental list also sent with the patient. Outpatient follow-up for definitive treatment. All questions were answered. Re-evaluation: stable Disposition discussed with patient/family/significant other: Patient Case discussed with consulting clinician: N/A Discharge Plan Triage Chief Complaint: Dental ED Provider: Neo Rubio Dx/Rx/DC Orders Clinical Impression: Dentalgia, Dental caries Instructions: ED Dental Pain, ED Dental Cavity Prescriptions: New penicillin V potassium 250 mg tablet 500 mg PO 4X/DAY Qty: 40 0RF oxycodone-acetaminophen [oxycodone-acetaminophen] 5-325 mg tablet 1 tab PO Q6H PRN PRN (Reason: Pain) 3 Days Qty: 12 0RF No Action trazodone 100 MG tablet 100 mg PO QHS oxycodone 5 mg tablet 5 mg PO Q4H PRN (Reason: pain) 5 Days Qty: 10 0RF Stand Alone Forms: ED Work / School Excuse Primary Care Provider: Tamika Mario Referrals: Tamika Mario MD [Primary Care Provider] - Activity Restrictions/Additional Instructions: Keep checking with your dentist to see if there is any cancellations. May try other dentists from the dental list also. Take medications as prescribed. Disposition Disposition: Home, Self Care Discharge Date/Time: 09/04/22 10:28
== END 2022-09-04 10:28 | disposition home or self-care (01) ==
PROVIDERS: Emergency Provider Emergency Medicine; PCP Internal Medicine; Visit Provider Emergency Medicine
DX: K02.9 Dental caries, unspecified (principal); I50.9 Heart failure, unspecified; F17.210 Nicotine dependence, cigarettes, uncomplicated
CPT/HCPCS: 99282

== ENCOUNTER 2023-10-09 04:11 | Emergency (ER) | payer MEDICAID, SELFPAY ==
[2023-10-09 04:11] VITALS: BP 136/72; PULSE 92; RESP 16; TEMP 36.6; O2SAT 99; BMI 20.9
[2023-10-09 04:34] LABS: Absolute Lymphocyte Count 2.64 X10^3/uL (0.83-4.51); Absolute Neutrophil Count 17.1 X10^3/uL (2.0-7.7); Basophil# 0.09 X10^3/uL; Basophil% 0.4 % (0-1); Eosinophil# 0.11 X10^3/uL; Eosinophils% 0.5 % (0-5); Hematocrit 41.7 % (37-47); Hemoglobin 14.2 g/dL (12.0-15.0); Lymphocyte # 2.64 X10^3/ul (0.83-4.51); Lymphocyte % 12.4 % (19-41); Mean Corp Hgb Conc 34.1 g/dL (32-36); Mean Corpuscular Hgb 31.3 pg (27.0-32.0); Mean Corpuscular Volume 91.9 fL (81-99); Mean Platelet Vol. 9.5 fl (6.2-12.0); Monocyte# 1.22 X10^3/uL; Monocyte% 5.7 % (0-10); NRBC Flagged by Analyzer 0 % (0-5); Neutrophil # 17.05 X10^3/uL (2.7-7.7); Neutrophil % 80.4 % (47-70); Platelet Count 419 K/mm3 (150-450); RBC Distribution Width CV 13.2 % (11.6-14.6); RBC Distribution Width SD 44.2 fl (35.1-43.9); Red Blood Count 4.54 M/mm3 (4.2-5.4); White Blood Count 21.2 K/mm3 (4.4-11.0)
--- NOTE | 2023-10-09 04:34 | EDS_ITS ---
HPI History of Present Illness Chief Complaint: Nausea/Vomiting/Diarrhea Informant: patient Narrative Narrative: Patient is a 43-year-old female with past medical history of anxiety and depression as well as right rotator cuff tear status post surgery roughly 1 mo nth ago. Patient states her daughter was recently sick with nausea vomiting and diarrhea and that this evening around 9 or 10:00 she developed generalized abdominal discomfort with bouts of nausea vomiting. She states that she was able to control his symptoms and tried to lay down but they returned and this time she also had loose stool/diarrhea. She denies any history of intestinal disorders such as IBS ulcerative colitis Crohn's disease. She denies any recent antibiotics or travel outside the country or exposure to livestock. She states she does have Zofran and try taking this but continue to vomit and secondary to her persistent symptoms comes in for evaluation [facility] Medical History Anxiety Cardiology follow-up encounter Esophageal tear Hepatitis History of CHF (congestive heart failure) History of echocardiogram History of stress test Right rotator cuff tear Smoker Wears partial dentures Home Medications trazodone 100 mg tablet 100 mg PO QHS 01/03/17 [History Last Taken 06/06/22] oxycodone-acetaminophen 5 mg-325 mg tablet 1 tab PO Q6H PRN PRN Pain 3 days #12 TABLETS 09/04/22 [Rx Last Taken Unknown] albuterol sulfate 90 mcg/actuation aerosol inhaler 2 puff inhalation Q4H PRN PRN wheezing 10/09/23 [History Last Taken Unknown] docusate sodium 100 mg capsule 100 mg PO BID 10/09/23 [History Last Taken Unknown] inhalational spacing device (BreatheRite MDI Spacer) 10/09/23 [History Last Taken Unknown] ondansetron 4 mg disintegrating tablet 4 mg PO Q8H PRN PRN nausea/vomiting 10/09/23 [History Last Taken Unknown] prochlorperazine maleate 10 mg tablet (Compazine) 10 mg PO TID PRN nausea and vomiting #21 tabs 10/09/23 [Rx Last Taken Unknown] Allergy/AdvReac Type Severity Reaction Status Date / Time escitalopram [From Lexapro] Allergy Other Verified 09/04/22 10:00 lamotrigine [From Lamictal] Allergy Hives Verified 09/04/22 10:00 nitrofurantoin Allergy Unknown Verified 09/04/22 10:00 [From Macrobid] nitrofurantoin Allergy Unknown Verified 09/04/22 10:00 macrocrystalline [From Macrobid] codeine AdvReac Nausea Verified 09/04/22 10:00 Family History no significant family his Surgical History History of tonsillectomy and adenoidectomy Hx of removal of ovary Hx of surgical procedure Social History household members: family housing: house Smoking Status: Current every day smoker tobacco type: cigarettes ROS ROS ED Constitutional Constitutional ED: Denies chills or fever(s) ENT ENT ED: Denies sore throat Cardiovascular Cardiovascular: Denies chest pain Respiratory/Chest Respiratory/Chest: Denies cough or dyspnea Gastrointestinal Gastrointestinal: Reports abdominal pain, diarrhea, nausea and vomiting Genitourinary Genitourinary ED: Denies dysuria Musculoskeletal Musculoskeletal: Denies myalgias Integumentary Denies rash Neurologic Neurologic: Denies headache(s) Hematologic/Lymphatic Hematologic/Lymphatic: Denies easy bleeding or easy bruising EXAM Physical Exam Const Vital Signs: 10/09/23 04:11 Temperature 98 F Temperature Source Oral Pulse Rate 92 Respiratory Rate 16 Blood Pressure 136/72 H Blood Pressure Mean 93 Pulse Ox 99 Oxygen Delivery Method Room Air Positive well nourished and well developed General Appearance ED: well developed; Negative for pallor HEENT Reports dry mucous membranes HEENT Narrative: Mucous membranes are dry and tacky without secondary changes to suggest infection in the posterior pharynx No tongue or lip swelling no oral lesions no airway edema or compromise Mouth ED: Yes dry mucous membranes Mouth: dry mucous membranes Eyes PERRL and EOMs intact bilaterally General Eye ED: Negative for scleral icterus Neck supple Neck Narrative: No nuchal rigidity or meningeal signs noted Resp normal respiratory effort and clear to auscultation bilaterally Cardio regular rate and regular rhythm GI non-distended and no masses GI Narrative: Abdomen is soft and nondistended with hyperactive bowel sounds. Patient has mild generalized pain with palpation without voluntary guarding or rigidity No pulsatile mass or fluid wave Auscultation: hyperactive bowel sounds Palpation: soft Extremity Extremity Narrative: Patient has decreased range of motion with chronic pain to the right shoulder consistent with history of recent rotator cuff tear Otherwise no acute findings Neuro oriented x3, CN's II-XII intact bilaterally and no sensory deficits noted Sensorium / Orientation: alert Motor Exam: strength 5/5 throughout Psych Psych Narrative: Patient has a nervous/anxious affect Skin no rashes or lesions noted and no wounds Skin Narrative: Skin turgor is increased. Otherwise no acute findings General Skin Exam: Negative for jaundice or pallor MDM MDM MDM Narrative Medical decision making narrative: Patient arrived to the ER with a soft nonsurgical abdomen and stable vital so I felt no need for an emergent CT scan. Differential diagnosis is for viral stomach infection such as [place] virus or rotavirus versus biliary colic versus acute cholecystitis versus pancreatitis versus bowel obstruction versus colitis. Based on her soft abdomen I felt no need for an emergent CT scan but basic blood work was obtained. Labs showed a white count of 21 but the remainder of her labs revealed no clinically significant findings. Based on the drastic elevation to her white count with concern for underlying intestinal infection patient underwent a CT scan of the abdomen and pelvis with IV contrast. This revealed no thickening of the colon consistent with colitis which is inflammatory versus infectious. Based on the patient's recent known sick contacts and the only lab abnormality being her white count I do feel this is most likely inflammatory in nature and do not feel the need to start her on antibiotics. After being treated in the ER she had resolution of symptoms and no further bouts of vomiting. Therefore with improvement of symptoms with treatment in the ER there is no need for further evaluation and she is otherwise safe for discharge History & Record Review Discussion w/independent historian: Patient Lab Data Attestation: I reviewed the patient's lab results. Labs: Laboratory Results - last 24 hr 10/09/23 04:20 WBC 21.2 H RBC 4.54 Hgb 14.2 Hct 41.7 MCV 91.9 MCH 31.3 MCHC 34.1 RDW Std Deviation 44.2 H RDW Coeff of Denys 13.2 Plt Count 419 MPV 9.5 Immature Gran % (Auto) 0.600 Neut % (Auto) 80.4 H Lymph % (Auto) 12.4 L [place] % (Auto) 5.7 Eos % (Auto) 0.5 Baso % (Auto) 0.4 Absolute Neuts (auto) 17.1 H Absolute Lymphs (auto) 2.64 Nucleated RBC % 0 Sodium 139 Potassium 3.4 L Chloride 106 Carbon Dioxide 27.0 Anion Gap 6 BUN 9 Creatinine 0.84 Estim Creat Clear Calc 79.31 Est GFR (MDRD) Af Amer 96 Est GFR (MDRD) Non-Af 80 BUN/Creatinine Ratio 10.8 Glucose 121 H Calcium 9.0 Magnesium 1.9 Total Bilirubin 0.40 Direct Bilirubin 0.12 AST 13 L ALT 15 Alkaline Phosphatase 64 Total Protein 7.0 Albumin 3.9 Globulin 3.1 Lipase TNP Serum , Qual NEGATIVE Radiography Diagnostic Testing: Clinical Impression(s) from Imaging Studies Abdomen/Pelvis CT 10/09/23 04:47 IMPRESSION: 1. Mild diffuse wall thickening of the colon. Findings may indicate infectious or inflammatory colitis. 2. There is a 1.7 cm right ovarian cyst. Electronically Signed: Andrew Ventura MD at 5:43 EDT Reading Location ID and State: [address] [place] [address] Tel , Service support , Discharge Plan Triage Chief Complaint: Nausea/Vomiting/Diarrhea ED Provider: Cesar Meneses Dx/Rx/DC Orders Clinical Impression: Nausea vomiting and diarrhea, Dehydration Instructions: Dehydration, ED Gastroenteritis, Viral (Adult) Prescriptions: New prochlorperazine maleate [Compazine] 10 mg tablet 10 mg PO TID PRN (Reason: nausea and vomiting) Qty: 21 0RF No Action trazodone 100 MG tablet 100 mg PO QHS oxycodone-acetaminophen [oxycodone-acetaminophen] 5-325 mg tablet 1 tab PO Q6H PRN PRN (Reason: Pain) 3 Days Qty: 12 0RF docusate sodium 100 mg capsule 100 mg PO BID albuterol sulfate 90 mcg/actuation HFA aerosol inhaler 2 puff inhalation Q4H PRN PRN (Reason: wheezing) ondansetron 4 mg tablet,disintegrating 4 mg PO Q8H PRN PRN (Reason: nausea/vomiting) (DME) BreatheRite MDI Spacer Spacer MISCELLANEOUS X1 Primary Care Provider: Tamika Mario Referrals: Tamika Mario MD [Primary Care Provider] - Activity Restrictions/Additional Instructions: Use the Compazine to help control bouts of nausea and vomiting and you can continue to use Zofran if necessary. Your symptoms and exam are consistent with a viral stomach infection which will last on average anywhere from 24 hours to 7 days with 3 days being the normal/average timeframe. If you have any further concerns or worsening of symptoms please return to the ER for repeat evaluation Disposition Disposition: Home, Self Care
[2023-10-09] MEDS: proCHLORPERazine 10 MG/2 ML Vial IV (04:35)
[2023-10-09] MEDS: DiphenhydrAMINE 50 MG/ML Syringe 25 MG IV (04:35)
[2023-10-09] MEDS: HYDROmorphone 1 MG/ML Syringe IV (04:36)
[2023-10-09] MEDS: 0.9% Normal Saline (1000mL) 1,000 ML 999 ML IV (04:37)
--- NOTE | 2023-10-09 04:47 | CT_ITS ---
EXAM: CT ABDOMEN AND PELVIS WITH INTRAVENOUS CONTRAST CLINICAL INDICATION: abd pain TECHNIQUE: Helically acquired images were obtained of the abdomen and pelvis with intravenous contrast. This CT exam was performed using one or more of the following dose reduction techniques: automated exposure control, adjustment of the mA and/or kV according to patient size, and/or use of iterative reconstruction technique. CONTRAST: IV 75mL Isovue-370 RADIATION DOSE: CTDIvol = 7.24 mGy, DLP = 377.71 mGy-cm COMPARISON: No relevant prior studies available. FINDINGS: LOWER THORAX: Unremarkable. Lung bases are clear. No cardiomegaly. No significant pericardial effusion. ABDOMEN: LIVER: Unremarkable. Homogeneous. No focal mass. GALLBLADDER AND BILE DUCTS: Unremarkable. No calcified gallstones. No gallbladder distention or wall edema. No intra- or extrahepatic biliary ductal dilation. PANCREAS: Unremarkable. No focal cystic or solid mass. SPLEEN: Unremarkable. Normal size without focal cystic or solid mass. ADRENALS: Unremarkable. No nodules. KIDNEYS AND URETERS: Unremarkable. Normal renal size and position. No hydronephrosis. STOMACH AND BOWEL: Mild diffuse wall thickening of the colon. No stomach or bowel distention. PELVIS: APPENDIX: The appendix is normal. BLADDER: Unremarkable. REPRODUCTIVE: There is a 1.7 cm right ovarian cyst. ABDOMEN and PELVIS: INTRAPERITONEAL SPACE: Unremarkable. No ascites or other fluid collection. No free air. BONES/JOINTS: Unremarkable. No suspicious lytic or blastic abnormality. SOFT TISSUES: Unremarkable. No discrete abdominal or pelvic wall hernia. VASCULATURE: Unremarkable. Abdominal aorta is non-dilated. LYMPH NODES: Unremarkable. No enlarged lymph nodes. CT/Abdomen/Pelvis W IV Cont ONLY IMPRESSION: 1. Mild diffuse wall thickening of the colon. Findings may indicate infectious or inflammatory colitis. 2. There is a 1.7 cm right ovarian cyst. Electronically Signed: Andrew Ventura MD at 5:43 EDT ,
[2023-10-09 04:52] LABS: AST(SGOT) 13 U/L (15-37); Alanine Aminotransfer ALT/SGPT 15 U/L (13-56); Albumin, Serum 3.9 g/dL (3.2-5.0); Alkaline Phosphatase 64 U/L (45-117); Anion Gap 6 (5-15); BUN 9 mg/dL (7-18); BUN/Creat Ratio 10.8 RATIO (10-20); Bilirubin, Direct 0.12 mg/dL (0.00-0.30); Chloride 106 mmol/L (98-107); Creatinine, Serum 0.84 mg/dL (0.55-1.02); EST Glomerular Filtration Rate 80 mL/min (>60); Est Glom Filt Rate - Afr Amer 96 mL/min (>60); Estimated Creatinine Clearance 79.31 ml/min; Globulin 3.1 g/dL (2.2-4.2); Glucose 121 mg/dL (74-106); Magnesium 1.9 mg/dL (1.6-2.6); Potassium 3.4 mmol/L (3.5-5.1); Sodium Level 139 mmol/L (136-145)
[2023-10-09 05:16] LABS: Internal QC Validated? YES +Cl - CLEAR BKGD; Pregnancy, Serum, hCG Quali. NEGATIVE Negative
[2023-10-09 06:11] VITALS: BP 105/64; PULSE 71; RESP 16; TEMP 36.6; O2SAT 98
== END 2023-10-09 06:23 | disposition home or self-care (01) ==
PROVIDERS: Emergency Provider Emergency Medicine; PCP Internal Medicine; Visit Provider Emergency Medicine
DX: R11.2 Nausea with vomiting, unspecified (principal); F17.210 Nicotine dependence, cigarettes, uncomplicated; E86.0 Dehydration; R19.7 Diarrhea, unspecified
CPT/HCPCS: 74177; 80048; 80076; 83690; 83735; 84703; 85025; 96361; 96374; 96375; 99282; J7030; Q9967; A4216

== ENCOUNTER 2024-01-01 20:29 | Emergency (ER) | payer MEDICAID, SELFPAY ==
[2024-01-01 20:31] VITALS: BP 128/82; PULSE 85; RESP 16; TEMP 36.3; O2SAT 98; BMI 22.0
--- NOTE | 2024-01-01 20:53 | EDS_ITS ---
HPI History of Present Illness HPI Narrative: 43-year-old female [id number] with right rotator cuff surgery 3 months ago with acute on chronic shoulder pain. Still taking mobic and percocet. Denies any injury or fever. Chief Complaint: Upper Extremity Injury Informant: patient Occured/Mechanism Mechanism/Context: No injury and No blunt trauma Onset/Context/Timing Onset: Month(s) Context: Gradual Onset Timing: Continuous Current Severity: Moderate Maximum Severity: Moderate Associated Symptoms Associated Symptoms: Negative for Parasthesia, Weakness or Loss of Funtion Narrative Narrative: s/p right rotator cuff surgery with pain for 3 months. Prior similar symptoms: Yes Recent Illness/Hospitalization: No PFSH PFSH Medical History Right rotator cuff tear Wears partial dentures Hepatitis Smoker History of echocardiogram History of stress test Cardiology follow-up encounter History of CHF (congestive heart failure) Esophageal tear Anxiety Home Medications ?Medication ?Instructions ?Recorded ?Last Taken ?Type trazodone 100 mg tablet 100 mg PO QHS 01/03/17 06/06/22 History oxycodone-acetaminophen 5 mg-325 1 tab PO Q6H PRN PRN Pain 3 days 09/04/22 Unknown Rx mg tablet #12 TABLETS inhalational spacing device 10/09/23 Unknown History (BreatheRite MDI Spacer) meloxicam 15 mg tablet 15 mg PO DAILY 01/01/24 Unknown History Allergy/AdvReac Type Severity Reaction Status Date / Time escitalopram (From Lexapro) Allergy Other Verified 01/01/24 20:31 lamotrigine (From Lamictal) Allergy Hives Verified 01/01/24 20:31 nitrofurantoin (From Allergy Unknown Verified 01/01/24 20:31 Macrobid) nitrofurantoin Allergy Unknown Verified 01/01/24 20:31 macrocrystalline (From Macrobid) codeine AdvReac Nausea Verified 01/01/24 20:31 Surgical History Hx of surgical procedure Hx of removal of ovary History of tonsillectomy and adenoidectomy Social History household members: family housing: house Smoking Status: Current every day smoker tobacco type: cigarettes ROS ROS ED ROS Narrative Denies recent illness or fever. Review of Systems ROS Unobtainable: Denies due to encephalopathy Constitutional Constitutional ED: Denies chills or fever(s) Eyes Eyes: Denies blurry vision ENT ENT ED: Denies ear pain Cardiovascular Cardiovascular: Denies chest pain Respiratory/Chest Respiratory/Chest: Denies cough or dyspnea Gastrointestinal Gastrointestinal: Denies abdominal pain Genitourinary Genitourinary ED: Denies dysuria or hematuria Musculoskeletal Musculoskeletal: Denies back pain or myalgias Integumentary Denies abscess or Abrasions Neurologic Neurologic: Denies headache(s) Psychiatric Psychiatric: Denies anxiety or depression Endocrine Endocrinology: Denies cold intolerance Hematologic/Lymphatic Hematologic/Lymphatic: Denies easy bleeding, easy bruising or lymphadenopathy Allergic/Immunologic Allergic/Immunologic ED: Denies mouth swelling, tongue swelling or urticaria EXAM Physical Exam Narrative Exam Narrative: 43-year-old female no acute distress. Vital signs stable afebrile. HEENT exam unremarkable. Neck nontender. Lungs clear. Heart regular rhythm no murmur. Rate about 80. Chest wall and ribs nontender. Abdomen soft nontender. Left upper and both lower extremities are unremarkable. Right shoulder has mild tenderness. There is no swelling. There is no redness or warmth. There is no deformity. There is no bony abnormality. Well-healed surgical incisions. No axillary lymphadenopathy. She can flex and extend her elbow. 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 Normal radial pulse. Normal touch sensation. She has limited range of motion to the shoulder due to discomfort. There is no signs of septic joint. Is not red or warm. Neurologically she is awake and alert. Const Vital Signs: 01/01/24 20:31 Temperature 97.3 F L Temperature Source Temporal Pulse Rate 85 Respiratory Rate 16 Blood Pressure 128/82 H Blood Pressure Mean 97 Pulse Ox 98 Oxygen Delivery Method Room Air Positive well nourished and well developed; Negative for obese, cachectic, contractures or unkempt General Appearance ED: well developed and NAD; Negative for unkempt, cachectic, contractures, cyanotic or diaphoretic Nutritional Appearance: Negative for cachectic or obese HEENT Reports moist mucous membranes normocephalic and atraumatic; Negative for trauma or tenderness Eyes PERRL and EOMs intact bilaterally General Eye ED: Negative for other Neck full ROM and supple General: Negative for tenderness Lymph Lymphatic: Negative for other Chest Wall inspection of chest normal and palpation of chest normal Chest: Negative for other Resp normal respiratory effort and clear to auscultation bilaterally Effort and Inspection: Negative for pain with movement Auscultation: Negative for rales, rhonchi, wheezes or diminished lung sounds Cardio regular rate, regular rhythm, S1 normal heart sound, S2 normal heart sound and no murmurs Rate: Negative for bradycardia or tachycardic Rhythm: Negative for abnormal rhythm GI non-tender, non-distended and no masses Inspection: Negative for abdominal distention Auscultation: normoactive bowel sounds Palpation: soft; Negative for tender, guarding or rebound tenderness present Back/Spine no CVA tenderness General Back: Negative for CVA tenderness Cervical Spine: Negative for cervical spine tenderness Thoracic Spine / Upper Back: Negative for thoracic spinal tenderness Lumbar Spine / Lower Back: Negative for lumbar spinal tenderness Extremity normal to inspection and full ROM Extremity Narrative: Except mild tenderness right shoulder. No redness or warmth. No signs of trauma. Well-healed prior surgical incision. Normal flexion extension of the elbow. Normal flexion-extension of the wrist with normal radial pulse. 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 Normal sensation. She can lift her right shoulder straight out but will not lift it above her head due to discomfort. General Extremety ED: Negative for edema General Extremity: Negative for edema Neuro oriented x3, CN's II-XII intact bilaterally, moves all extremities, no focal motor deficits and no sensory deficits noted Sensorium / Orientation: alert, oriented to person, oriented to place and fernando ented to time; Negative for orientation impaired, lethargic or stuporous Motor Exam: strength 5/5 throughout Psych mental status grossly normal Appearance: Negative for unkempt Attitude: No agitated Mood & Affect: Negative for depressed, anxious or tearful Skin General Skin Exam: Negative for petechiae Lesions: no lesions Rashes: no rashes MDM MDM MDM Narrative Medical decision making narrative: 43-year-old female with chronic right shoulder pain since rotator cuff surgery 3+ months ago. Exam is benign. She would not do full range of motion due to discomfort. There is no signs of infection. She has had this pain it has been going on. Show given IM injection of morphine and discharged home. She does not need any imaging. There is no signs of infection. She can follow-up with her orthopedic physician. History & Record Review Discussion w/independent historian: Patient Discharge Plan Triage Chief Complaint: Upper Extremity Injury ED Provider: Pablo Jarquin Dx/Rx/DC Orders Clinical Impression: Chronic shoulder pain, History of rotator cuff surgery Instructions: ED Shoulder Pain, Uncertain Cause Prescriptions: No Action trazodone 100 MG tablet 100 mg PO QHS oxycodone-acetaminophen [oxycodone-acetaminophen] 5-325 mg tablet 1 tab PO Q6H PRN PRN (Reason: Pain) 3 Days Qty: 12 0RF (DME) BreatheRite MDI Spacer Spacer MISCELLANEOUS X1 meloxicam 15 mg tablet 15 mg PO DAILY Primary Care Provider: Tamika Mario Referrals: Tamika Mario MD [Primary Care Provider] - As Needed Activity Restrictions/Additional Instructions: Continue your current pain medications. Follow up with your orthopedic Dr. as soon as possible. Print Language: Slovenian Disposition Disposition: Home, Self Care
[2024-01-01] MEDS: Ondansetron ODT 4 MG Tablet PO (20:56)
[2024-01-01] MEDS: morphine 10 MG/ML Syringe 8 MG IM (20:56)
[2024-01-01 21:02] VITALS: BP 122/77; PULSE 83; RESP 16; TEMP 36.7; O2SAT 98
--- NOTE | 2024-01-01 21:16 | ED.RN ---
this RN went into room with dc instructions after shot time, patient no longer in room, unknown time of patient leaving.
== END 2024-01-01 21:19 | disposition home or self-care (01) ==
PROVIDERS: Emergency Provider Emergency Medicine; PCP Internal Medicine; Visit Provider Emergency Medicine
DX: M25.511 Pain in right shoulder (principal); G89.29 Other chronic pain; F17.210 Nicotine dependence, cigarettes, uncomplicated; Z98.890 Other specified postprocedural states
CPT/HCPCS: 96372; 99282; A4216

== ENCOUNTER 2024-01-06 21:55 | Emergency (ER) | payer MEDICAID, SELFPAY ==
[2024-01-06 21:57] VITALS: BP 101/85; PULSE 98; RESP 16; TEMP 36.6; O2SAT 100; BMI 20.4
--- NOTE | 2024-01-06 22:23 | CT_ITS ---
EXAM: CT ABDOMEN AND PELVIS WITH INTRAVENOUS CONTRAST CLINICAL INDICATION: llq abdominal pain TECHNIQUE: Helically acquired images were obtained of the abdomen and pelvis with intravenous contrast. This CT exam was performed using one or more of the following dose reduction techniques: automated exposure control, adjustment of the mA and/or kV according to patient size, and/or use of iterative reconstruction technique. CONTRAST: IV 100mL Isovue-370 RADIATION DOSE: CTDIvol = 8.27 mGy, DLP = 324.34 mGy-cm COMPARISON: CT abdomen and pelvis 10/09/2023 FINDINGS: LOWER THORAX: Unremarkable. Lung bases are clear. No cardiomegaly. No significant pericardial effusion. ABDOMEN: LIVER: Unremarkable. Homogeneous. No focal mass. GALLBLADDER AND BILE DUCTS: Unremarkable. No calcified gallstones. No gallbladder distention or wall edema. No intra- or extrahepatic biliary ductal dilation. PANCREAS: Unremarkable. No focal cystic or solid mass. SPLEEN: Unremarkable. Normal size without focal cystic or solid mass. ADRENALS: Unremarkable. No nodules. KIDNEYS AND URETERS: Unremarkable. Normal renal size and position. No hydronephrosis. STOMACH AND BOWEL: Multiple loops of proximal to mid small bowel demonstrate some wall and fold thickening. No bowel obstruction. PELVIS: APPENDIX: The appendix is normal. BLADDER: Unremarkable. REPRODUCTIVE: Unremarkable as visualized. No mass. ABDOMEN and PELVIS: INTRAPERITONEAL SPACE: Unremarkable. No ascites or other fluid collection. No free air. BONES/JOINTS: Unremarkable. No suspicious lytic or blastic abnormality. SOFT TISSUES: Unremarkable. No discrete abdominal or pelvic wall hernia. VASCULATURE: Unremarkable. Abdominal aorta is non-dilated. LYMPH NODES: Unremarkable. No enlarged lymph nodes. CT/Abdomen/Pelvis W IV Cont ONLY IMPRESSION: Multiple loops of proximal to mid small bowel demonstrate some wall and fold thickening. This could indicate an infectious or inflammatory enteritis. Electronically Signed: Andrew Ventura MD at 23:56 EDT ,
--- NOTE | 2024-01-06 22:24 | ED.VIS.GI ---
HPI HPI - GI History of Present Illness Chief Complaint: Abd Pain Narrative Narrative: 43-year-old male presenting with nausea, vomiting, diarrhea x 2 days. She states that both of her kids had some yellow diarrhea over the last few days before the and she started having it later. Her kids both improved. Patient started having abdominal pain today in the left lower quadrant. This made her concerned. She presents to the ER for abdominal pain as well. Patient has not any black or bloody stools. She does not have a fever. Patient denies any urinary complaints. She states she has not been able to hold down any food or her pain medicine that she takes for her right shoulder. Patient states that she did go to tubing at [facility] last week but does not think she swallowed any water. She has not had any exotic food or travel. No recent antibiotic use. [facility] Medical History Right rotator cuff tear Wears partial dentures Hepatitis Smoker History of echocardiogram History of stress test Cardiology follow-up encounter History of CHF (congestive heart failure) Esophageal tear Anxiety Home Medications ?Medication ?Instructions ?Recorded ?Last Taken ?Type trazodone 100 mg tablet 100 mg PO QHS 01/03/17 06/06/22 History oxycodone-acetaminophen 5 mg-325 1 tab PO Q6H PRN PRN Pain 3 days 09/04/22 Unknown Rx mg tablet #12 TABLETS inhalational spacing device 10/09/23 Unknown History (BreatheRite MDI Spacer) meloxicam 15 mg tablet 15 mg PO DAILY 01/01/24 Unknown History albuterol sulfate 90 mcg/actuation 2 puff inhalation Q4H PRN PRN 01/06/24 Unknown History aerosol inhaler wheezing promethazine 25 mg tablet 25 mg PO TID PRN nausea and 01/07/24 Unknown Rx vomiting #14 tabs Allergy/AdvReac Type Severity Reaction Status Date / Time escitalopram (From Lexapro) Allergy Other Verified 01/06/24 21:59 lamotrigine (From Lamictal) Allergy Hives Verified 01/06/24 21:59 nitrofurantoin (From Allergy Unknown Verified 01/06/24 21:59 Macrobid) nitrofurantoin Allergy Unknown Verified 01/06/24 21:59 macrocrystalline (From Macrobid) codeine AdvReac Nausea Verified 01/06/24 21:59 Surgical History Hx of surgical procedure Hx of removal of ovary History of tonsillectomy and adenoidectomy Social History household members: family housing: house Smoking Status: Current every day smoker tobacco type: cigarettes ROS ROS ED Constitutional Constitutional ED: Denies chills, fever(s) or sweats Eyes Eyes: Denies blurry vision or change in vision ENT ENT ED: Denies ear pain or sore throat Cardiovascular Cardiovascular: Denies chest pain, palpitations or racing heartbeat Respiratory/Chest Respiratory/Chest: Denies cough, dyspnea or sputum Gastrointestinal Gastrointestinal: Reports abdominal pain, diarrhea, nausea and vomiting; Denies constipation Genitourinary Genitourinary ED: Denies dysuria, hematuria or urinary frequency Musculoskeletal Musculoskeletal: Denies arthralgias, myalgias or neck pain Integumentary Denies abscess, Abrasions or rash Neurologic Neurologic: Denies headache(s), paresthesias or weakness Psychiatric Psychiatric: Denies anxiety, depression, suicidal ideation or suicidal thoughts Endocrine Endocrinology: Denies polydipsia or polyuria EXAM Physical Exam Const Vital Signs: 01/06/24 21:57 01/06/24 23:09 01/06/24 23:56 Temperature 97.8 F 98.1 F 98.1 F Temperature Source Oral Oral Oral Pulse Rate 98 88 88 Respiratory Rate 16 16 16 Blood Pressure 101/85 H 100/65 107/71 Blood Pressure Mean 90 76 83 Pulse Ox 100 98 97 Oxygen Delivery Method Room Air Room Air Positive well nourished General Appearance ED: NAD; Negative for pallor HEENT Reports moist mucous membranes normocephalic Eyes PERRL and EOMs intact bilaterally Resp normal respiratory effort Cardio regular rate and regular rhythm GI Palpation: tender LLQ Neuro CN's II-XII intact bilaterally and moves all extremities Sensorium / Orientation: alert Psych mental status grossly normal Skin General Skin Exam: Negative for jaundice or pallor MDM MDM MDM Narrative Medical decision making narrative: 43-year-old female with left-sided abdominal pain, nausea, vomiting, diarrhea. Patient presenting with right flank pain. Differential includes colitis, diverticulitis, gastritis, pancreatitis, constipation, UTI, pyelonephritis, renal calculi, ureteral calculi, bowel obstruction, malignancy, dehydration, electrolyte abnormalities, ovarian cyst, ovarian torsion. CBC will be obtained to assess white blood cell count, hemoglobin, platelets. CMP to assess renal function, electrolytes, liver function, glucose. Lipase to assess for pancreatitis. Urinalysis to assess for UTI. Patient medicated with morphine, Zofran, 1 L IV fluids. CBC shows mild leukocytosis at 13.8. Hemoglobin 14.3. Platelets are normal at 333. Renal function electrolytes within normal limits. Urinalysis negative for infection. LFTs are normal. CT of the abdomen pelvis shows enteritis. This is likely viral as her children both have it as well. She has Zofran at home so I will give her Phenergan to help with the vomiting. Return precautions were discussed. Impression: 1. Gastroenteritis Lab Data Labs: Laboratory Results - last 24 hr 01/06/24 22:45 WBC 13.8 H RBC 4.51 Hgb 14.3 Hct 41.8 MCV 92.7 MCH 31.7 MCHC 34.2 RDW Std Deviation 42.0 RDW Coeff of Denys 12.3 Plt Count 333 MPV 9.5 Immature Gran % (Auto) 0.300 Neut % (Auto) 64.0 Lymph % (Auto) 28.0 [place] % (Auto) 6.0 Eos % (Auto) 1.2 Baso % (Auto) 0.5 Absolute Neuts (auto) 8.8 H Absolute Lymphs (auto) 3.85 Nucleated RBC % 0 Sodium 138 Potassium 3.6 Chloride 107 Carbon Dioxide 26.0 Anion Gap 5 BUN 8 Creatinine 0.95 Estim Creat Clear Calc 68.47 Est GFR (MDRD) Af Amer 83 Est GFR (MDRD) Non-Af 69 BUN/Creatinine Ratio 8.4 L Glucose 80 Calcium 8.9 Total Bilirubin 0.40 AST 9 L ALT 12 L Alkaline Phosphatase 63 Total Protein 6.6 Albumin 3.5 Globulin 3.1 Albumin/Globulin Ratio 1.1 Lipase 37 Urine Color Yellow Urine Clarity Sl. Cloudy Urine pH 6.0 Ur Specific [place] 1.010 Urine Protein Negative Urine Glucose (UA) Normal Urine Ketones Negative Urine Occult Blood Negative Urine Nitrite Negative Urine Bilirubin Negative Urine Urobilinogen Normal Ur Leukocyte Esterase Negative Urine RBC 0 SEEN Urine WBC 0-5 SEEN Ur Squamous Epith Cells 5-10 SEEN Urine Bacteria 1+ Urine Mucus 0 SEEN Radiography Diagnostic Testing: Clinical Impression(s) from Imaging Studies Abdomen/Pelvis CT 01/06/24 22:23 IMPRESSION: Multiple loops of proximal to mid small bowel demonstrate some wall and fold thickening. This could indicate an infectious or inflammatory enteritis. Electronically Signed: Andrew Ventura MD at 23:56 EDT , Discharge Plan Triage Chief Complaint: Abd Pain Other Complaint: Nausea/Vomiting/Diarrhea ED Provider: Arturo Craig Dx/Rx/DC Orders Instructions: ED Gastroenteritis, Viral (Adult) Prescriptions: New promethazine 25 mg tablet 25 mg PO TID PRN (Reason: nausea and vomiting) Qty: 14 0RF No Action trazodone 100 MG tablet 100 mg PO QHS oxycodone-acetaminophen [oxycodone-acetaminophen] 5-325 mg tablet 1 tab PO Q6H PRN PRN (Reason: Pain) 3 Days Qty: 12 0RF (DME) BreatheRite MDI Spacer Spacer MISCELLANEOUS X1 meloxicam 15 mg tablet 15 mg PO DAILY albuterol sulfate 90 mcg/actuation HFA aerosol inhaler 2 puff inhalation Q4H PRN PRN (Reason: wheezing) Primary Care Provider: Tamika Mario Referrals: Tamika Mario MD [Primary Care Provider] - Print Language: Slovenian Disposition Disposition: Home, Self Care
[2024-01-06 23:06] LABS: Mucous, Urine 0 SEEN /hpf (<or=2+); Red Blood Cells-Urine 0 SEEN /hpf (0-5)
[2024-01-06 23:08] LABS: Absolute Lymphocyte Count 3.85 X10^3/uL (0.83-4.51); Absolute Neutrophil Count 8.8 X10^3/uL (2.0-7.7); Basophil# 0.07 X10^3/uL; Basophil% 0.5 % (0-1); Eosinophil# 0.17 X10^3/uL; Eosinophils% 1.2 % (0-5); Hematocrit 41.8 % (37-47); Hemoglobin 14.3 g/dL (12.0-15.0); Lymphocyte # 3.85 X10^3/ul (0.83-4.51); Mean Corp Hgb Conc 34.2 g/dL (32-36); Mean Corpuscular Hgb 31.7 pg (27.0-32.0); Mean Corpuscular Volume 92.7 fL (81-99); Mean Platelet Vol. 9.5 fl (6.2-12.0); Monocyte# 0.83 X10^3/uL; NRBC Flagged by Analyzer 0 % (0-5); Neutrophil # 8.81 X10^3/uL (2.7-7.7); Platelet Count 333 K/mm3 (150-450); RBC Distribution Width CV 12.3 % (11.6-14.6); Red Blood Count 4.51 M/mm3 (4.2-5.4); White Blood Count 13.8 K/mm3 (4.4-11.0)
[2024-01-06 23:09] VITALS: BP 100/65; PULSE 88; RESP 16; TEMP 36.7; O2SAT 98
[2024-01-06 23:12] LABS: Color, Urine Yellow (Yellow); Glucose, Dipstick Normal (Normal); Ketone-Dipstick Negative (Negative); Leukocyte Esterase-Dipstick Negative /ul (Negative); Nitrite-Dipstick Negative (Negative); Occult Blood-Urine Negative /ul (Negative); Protein-Dipstick Negative (Negative); Urine Bilirubin Dipstick Negative (Negative); Urine Clarity Sl. Cloudy (Clear); Urine Urobilinogen Normal (Normal)
[2024-01-06] MEDS: Morphine 4 MG/ML Syringe IV (23:15)
[2024-01-06] MEDS: Ondansetron 4 MG/2 ML Vial IV (23:15)
[2024-01-06] MEDS: 0.9% Normal Saline (1000mL) 1,000 ML 999 ML IV (23:15)
[2024-01-06 23:19] LABS: Bacteria 1+ /hpf (None Seen); Squamous Epithelial Cells - UA 5-10 SEEN /hpf (5-10); White Blood Cells 0-5 SEEN /hpf (0-5)
[2024-01-06 23:26] LABS: ALB/GLOB Ratio 1.1 RATIO (0.9-2.4); AST(SGOT) 9 U/L (15-37); Alanine Aminotransfer ALT/SGPT 12 U/L (13-56); Albumin, Serum 3.5 g/dL (3.2-5.0); Alkaline Phosphatase 63 U/L (45-117); Anion Gap 5 (5-15); BUN 8 mg/dL (7-18); BUN/Creat Ratio 8.4 RATIO (10-20); Calcium,Total 8.9 mg/dL (8.5-10.1); Chloride 107 mmol/L (98-107); Creatinine, Serum 0.95 mg/dL (0.55-1.02); EST Glomerular Filtration Rate 69 mL/min (>60); Est Glom Filt Rate - Afr Amer 83 mL/min (>60); Estimated Creatinine Clearance 68.47 ml/min; Globulin 3.1 g/dL (2.2-4.2); Glucose 80 mg/dL (74-106); Lipase 37 U/L (13-75); Potassium 3.6 mmol/L (3.5-5.1); Protein, Total 6.6 g/dL (6.4-8.2); Sodium Level 138 mmol/L (136-145)
[2024-01-06 23:56] VITALS: BP 107/71; PULSE 88; RESP 16; TEMP 36.7; O2SAT 97
[2024-01-07 00:52] VITALS: BP 117/71; PULSE 60; RESP 18; TEMP 36.8; O2SAT 99
== END 2024-01-07 00:53 | disposition home or self-care (01) ==
PROVIDERS: Emergency Provider Student in an Organized Health Care Education/Training Program; PCP Internal Medicine; Visit Provider Student in an Organized Health Care Education/Training Program
DX: K52.9 Noninfective gastroenteritis and colitis, unspecified (principal); F17.210 Nicotine dependence, cigarettes, uncomplicated; Z79.899 Other long term (current) drug therapy
CPT/HCPCS: 74177; 80053; 81001; 83690; 85025; 96361; 96374; 96375; 99282; J7030; Q9967; A4216; J2405

== ENCOUNTER 2024-02-27 01:13 | Emergency (ER) | payer MEDICAID, SELFPAY ==
[2024-02-27 01:13] VITALS: BP 128/89; PULSE 87; RESP 16; TEMP 36.4; O2SAT 99; BMI 20.9
[2024-02-27 02:03] LABS: Basophil% 0.9 % (0-1); Eosinophils% 1.4 % (0-5); Hematocrit 39.2 % (37-47); Hemoglobin 13.5 g/dL (12.0-15.0); Lymphocyte % 34.8 % (19-41); Mean Corp Hgb Conc 34.4 g/dL (32-36); Mean Corpuscular Hgb 32.8 pg (27.0-32.0); Mean Corpuscular Volume 95.4 fL (81-99); Mean Platelet Vol. 10.4 fl (6.2-12.0); Monocyte% 7.8 % (0-10); Neutrophil % 54.8 % (47-70); Platelet Count 317 K/mm3 (150-450); RBC Distribution Width CV 12.7 % (11.6-14.6); RBC Distribution Width SD 43.9 fl (35.1-43.9); Red Blood Count 4.11 M/mm3 (4.2-5.4)
[2024-02-27] MEDS: Morphine 4 MG/ML Syringe IV (02:03)
[2024-02-27] MEDS: Orphenadrine 60 MG/2 ML Ampul IV (02:03)
[2024-02-27] MEDS: Ondansetron 4 MG/2 ML Vial IV (02:03)
[2024-02-27] MEDS: 0.9% Normal Saline (1000mL) 1,000 ML 999 ML IV (02:03)
[2024-02-27 02:04] LABS: Absolute Lymphocyte Count 4.87 X10^3/uL (0.83-4.51); Absolute Neutrophil Count 7.7 X10^3/uL (2.0-7.7); Basophil# 0.13 X10^3/uL; Eosinophil# 0.19 X10^3/uL; Lymphocyte # 4.87 X10^3/ul (0.83-4.51); Monocyte# 1.09 X10^3/uL; NRBC Flagged by Analyzer 0 % (0-5); Neutrophil # 7.69 X10^3/uL (2.7-7.7)
[2024-02-27 02:05] VITALS: BP 130/84; PULSE 65; RESP 18; O2SAT 99
[2024-02-27 02:15] LABS: Bacteria 0 SEEN /hpf (None Seen); Mucous, Urine 0 SEEN /hpf (<or=2+); Red Blood Cells-Urine 0 SEEN /hpf (0-5); Squamous Epithelial Cells - UA 0 SEEN /hpf (5-10); White Blood Cells 0 SEEN /hpf (0-5)
[2024-02-27 02:17] LABS: Color, Urine Yellow (Yellow); Glucose, Dipstick Normal (Normal); Ketone-Dipstick Negative (Negative); Leukocyte Esterase-Dipstick Negative /ul (Negative); Nitrite-Dipstick Negative (Negative); Occult Blood-Urine Negative /ul (Negative); Protein-Dipstick Negative (Negative); Specific Gravity, Urine 1.005 (1.002-1.030); Urine Bilirubin Dipstick Negative (Negative); Urine Clarity Clear (Clear); Urine Urobilinogen Normal (Normal)
[2024-02-27 02:18] LABS: Anion Gap 6 (5-15); BUN 7 mg/dL (7-18); BUN/Creat Ratio 9.2 RATIO (10-20); Calcium,Total 8.9 mg/dL (8.5-10.1); Chloride 105 mmol/L (98-107); Creatinine, Serum 0.76 mg/dL (0.55-1.02); EST Glomerular Filtration Rate 88 mL/min (>60); Est Glom Filt Rate - Afr Amer 107 mL/min (>60); Estimated Creatinine Clearance 86.77 ml/min; Glucose 96 mg/dL (74-106); Potassium 3.2 mmol/L (3.5-5.1); Sodium Level 139 mmol/L (136-145)
[2024-02-27 02:21] LABS: Internal QC Validated? YES +Cl - CLEAR BKGD; Pregnancy, Urine Negative Negative
--- NOTE | 2024-02-27 03:10 | CT_ITS ---
STUDY: CT ABDOMEN AND PELVIS WITH CONTRAST REASON FOR EXAM: Female, 44 years old patient with abdominal pain. RADIATION DOSAGE (If Supplied By Facility): CTDIvol = ( 9.83 ) mGy, DLP = ( 344.24 ) mGycm TECHNIQUE: Transaxial images were obtained from the dome of the diaphragm to the symphysis pubis without oral contrast. 75 mL of IV Isovue-370 was administered. Sagittal and coronal images were reconstructed. Individualized dose optimization techniques were used for this CT. COMPARISON: CT abdomen and pelvis dated January 06, 2024. FINDINGS: There is right lower lobe airspace disease and atelectasis suggesting possible pneumonia. The visualized portions of the heart are within normal limits. There is hepatomegaly with diffuse hepatic enlargement. Liver measures approximately 23.2 cm Normal gallbladder and extrahepatic biliary system. Normal spleen. Normal pancreas. Normal bilateral adrenal glands. Normal right kidney. Normal left kidney. There is some enhancement of the gastric mucosa suggesting acute gastritis. There is no obvious dilated bowel, ascites or pneumoperitoneum. There appears to be thickening of the garner of the proximal small bowel in left upper quadrant suggesting possible infectious or inflammatory enteritis. The mid and distal small bowel has a more normal appearance. There is stool and/or gas visible throughout the colon with scattered diverticula. There is non-visualization of the appendix. There is mild atherosclerotic calcification of the abdominal aorta, without a demonstrated aneurysm. Normal inferior vena cava. Normal retroperitoneum. Normal urinary bladder. The uterus appears to have several enhancing nodules suggesting uterine leiomyomata. Normal abdominal wall. Normal osseous structures. CT/Abdomen/Pelvis W IV Cont ONLY IMPRESSION: 1. Right lower lobe airspace disease suggests pneumonia. 2. Findings suggest possible acute gastritis and infectious or inflammatory enteritis. 3. Hepatomegaly. Electronically Signed: Katrin Nettles MD at 3:58 EDT ,
[2024-02-27 04:00] VITALS: BP 121/84; PULSE 90; RESP 16; TEMP 36.8; O2SAT 100
[2024-02-27] MEDS: HYDROmorphone 0.5 MG/0.5 ML SYRINGE IV (04:06)
[2024-02-27] MEDS: Gabapentin 300 MG Capsule PO (04:06)
--- NOTE | 2024-02-27 04:12 | EX.ED.DYSGE1 ---
HPI History of Present Illness Chief Complaint: Back Informant: patient and spouse/S.O. Narrative Narrative: Patient is a 44-year-old female with past medical history of anxiety and chronic pain secondary to rotator cuff injury. She states that over the last days she has had pain radiating from her low back into the left side of her abdomen and she is feeling bloated with this. She states she has also had a nonproductive cough at home and has noticed some pain shooting down the abdomen into the right leg. She states has been no trauma or excessive activity. She denies any loss of bowel or bladder control or IV drug use. She states she has been no hematuria and she denies any concern for . She states she takes Percocet on a daily basis because of her chronic shoulder pain and there has been no improvement with her home medications and therefore she comes in for evaluation [facility] Medical History Right rotator cuff tear Wears partial dentures Hepatitis Smoker History of echocardiogram History of stress test Cardiology follow-up encounter History of CHF (congestive heart failure) Esophageal tear Anxiety Home Medications ?Medication ?Instructions ?Recorded ?Last Taken ?Type trazodone 100 mg tablet 100 mg PO QHS 01/03/17 06/06/22 History oxycodone-acetaminophen 5 mg-325 1 tab PO Q6H PRN PRN Pain 3 days 09/04/22 Unknown Rx mg tablet #12 TABLETS inhalational spacing device 10/09/23 Unknown History (BreatheRite MDI Spacer) meloxicam 15 mg tablet 15 mg PO DAILY 01/01/24 Unknown History albuterol sulfate 90 mcg/actuation 2 puff inhalation Q4H PRN PRN 01/06/24 Unknown History aerosol inhaler wheezing alprazolam 0.5 mg tablet 0.5 mg PO DAILY PRN panic attack 02/27/24 Unknown History amitriptyline 10 mg tablet 10 mg PO QHS 02/27/24 Unknown History azithromycin 250 mg tablet See Rx Instructions PO .COMPLEX #6 02/27/24 Unknown Rx (Zithromax Z-Lars) tabs gabapentin 300 mg capsule 300 mg PO TID 02/27/24 Unknown History lidocaine 5 % topical patch 1 patch topical Q24H 02/27/24 Unknown History nystatin 100,000 unit/mL oral 5 ml PO Q6H 02/27/24 Unknown History suspension sulfamethoxazole 800 1 tab PO BID 7 days #14 tabs 02/27/24 Unknown Rx mg-trimethoprim 160 mg tablet (Bactrim DS) tizanidine 4 mg tablet 4 mg PO Q6H PRN PRN muscle 02/27/24 Unknown History relaxation Allergy/AdvReac Type Severity Reaction Status Date / Time escitalopram (From Lexapro) Allergy Other Verified 02/27/24 01:15 lamotrigine (From Lamictal) Allergy Hives Verified 02/27/24 01:15 nitrofurantoin (From Allergy Unknown Verified 02/27/24 01:15 Macrobid) nitrofurantoin Allergy Unknown Verified 02/27/24 01:15 macrocrystalline (From Macrobid) codeine AdvReac Nausea Verified 02/27/24 01:15 Surgical History Hx of surgical procedure Hx of removal of ovary History of tonsillectomy and adenoidectomy Social History household members: family housing: house Smoking Status: Current every day smoker tobacco type: cigarettes ROS ROS ED Constitutional Constitutional ED: Denies chills or fever(s) ENT ENT ED: Denies sore throat Cardiovascular Cardiovascular: Denies chest pain Respiratory/Chest Respiratory/Chest: Reports cough; Denies dyspnea Gastrointestinal Gastrointestinal: Reports abdominal pain and nausea; Denies constipation, diarrhea or vomiting Genitourinary Genitourinary ED: Denies dysuria or hematuria Musculoskeletal Musculoskeletal: Reports back pain Integumentary Denies rash Neurologic Neurologic: Denies headache(s) Hematologic/Lymphatic Hematologic/Lymphatic: Denies easy bleeding or easy bruising EXAM Physical Exam Const Vital Signs: 02/27/24 01:13 02/27/24 02:05 02/27/24 04:00 Temperature 97.6 F L 98.2 F Temperature Source Oral Pulse Rate 87 65 90 Respiratory Rate 16 18 16 Blood Pressure 128/89 H 130/84 H 121/84 H Blood Pressure Mean 102 99 96 Pulse Ox 99 99 100 Oxygen Delivery Method Room Air Room Air Positive well nourished and well developed General Appearance ED: well developed; Negative for pallor HEENT HEENT Narrative: No signs of infection noted in the posterior pharynx Eyes PERRL and EOMs intact bilaterally General Eye ED: Negative for scleral icterus Neck supple Resp normal respiratory effort and clear to auscultation bilaterally Cardio regular rate and regular rhythm GI non-distended and no masses GI Narrative: Abdomen is soft and nondistended with hyperactive bowel sounds. There is mild pain with palpation in the left mid upper abdomen without voluntary guarding or rigidity. No pulsatile mass or fluid wave Auscultation: hyperactive bowel sounds Palpation: soft Back/Spine Back/Spine Narrative: No bony deformity or step-off of the thoracic or lumbar spine no midline tenderness to palpation No saddle anesthesia. Negative straight leg raise. No clonus or Babinski. Patellar reflexes are plus 2 out of 4 bilaterally No CVA pain noted No overlying soft tissue changes to suggest trauma or infection Extremity normal to inspection Neuro oriented x3, CN's II-XII intact bilaterally and no sensory deficits noted Sensorium / Orientation: alert Motor Exam: strength 5/5 throughout Psych Mood & Affect: anxious Skin no rashes or lesions noted and no wounds General Skin Exam: Negative for jaundice or pallor MDM MDM MDM Narrative Medical decision making narrative: Patient presented to the ER with stable vitals and reported pain along the low back and left side of abdomen without trauma or excessive activity. She denied loss of bowel or bladder control or IV drug use and therefore of low concern for cauda equina or epidural abscess. Symptoms could be related to UTI versus pyelonephritis versus kidney stone. There is also concern for potential colitis/enteritis or complication. Secondary to this basic labs were obtained as well as a CT scan with IV contrast. Labs showed leukocytosis with white count of 14 but no left shift. The remainder the labs revealed no clinically significant findings such as severe electrolyte abnormality or acute kidney injury and there were no signs of UTI. The CT scan revealed potential pneumonia in the right lower lung and enteritis in the left sided abdomen. This does correlate with her physical exam. Without trauma or recent surgery I have low concern for compression fracture or discitis and did not feel there is need for CT scan of the lumbar spine directly. At this time she is hemodynamically stable she is not showing signs of sepsis she is not requiring supplemental oxygen and therefore she be placed on antibiotics for the potential pneumonia and enteritis and otherwise safe for discharge. Patient will be given Zithromax to cover for potential lung pathogens and then placed on Bactrim secondary to the enteritis which will also indirectly cover lung pathology. History & Record Review Discussion w/independent historian: Patient and Significant other Lab Data Attestation: I reviewed the patient's lab results. Labs: Laboratory Results - last 24 hr 02/27/24 02/27/24 01:25 02:11 WBC 14.0 H RBC 4.11 L Hgb 13.5 Hct 39.2 MCV 95.4 MCH 32.8 H MCHC 34.4 RDW Std Deviation 43.9 RDW Coeff of Denys 12.7 Plt Count 317 MPV 10.4 Immature Gran % (Auto) 0.300 Neut % (Auto) 54.8 Lymph % (Auto) 34.8 [place] % (Auto) 7.8 Eos % (Auto) 1.4 Baso % (Auto) 0.9 Absolute Neuts (auto) 7.7 Absolute Lymphs (auto) 4.87 H Nucleated RBC % 0 Sodium 139 Potassium 3.2 L Chloride 105 Carbon Dioxide 28.0 Anion Gap 6 BUN 7 Creatinine 0.76 Estim Creat Clear Calc 86.77 Est GFR (MDRD) Af Amer 107 Est GFR (MDRD) Non-Af 88 BUN/Creatinine Ratio 9.2 L Glucose 96 Calcium 8.9 Urine Color Yellow Urine Clarity Clear Urine pH 7.0 Ur Specific [place] 1.005 Urine Protein Negative Urine Glucose (UA) Normal Urine Ketones Negative Urine Occult Blood Negative Urine Nitrite Negative Urine Bilirubin Negative Urine Urobilinogen Normal Ur Leukocyte Esterase Negative Urine RBC 0 SEEN Urine WBC 0 SEEN Ur Squamous Epith Cells 0 SEEN Urine Bacteria 0 SEEN Urine Mucus 0 SEEN Urine Test Negative Radiography Diagnostic Testing: Clinical Impression(s) from Imaging Studies Abdomen/Pelvis CT 02/27/24 03:10 IMPRESSION: 1. Right lower lobe airspace disease suggests pneumonia. 2. Findings suggest possible acute gastritis and infectious or inflammatory enteritis. 3. Hepatomegaly. Electronically Signed: Katrin Nettles MD at 3:58 EDT Reading Location ID and State: [facility] / MD , Service support , Discharge Plan Triage Chief Complaint: Back ED Provider: Cesar Meneses Dx/Rx/DC Orders Clinical Impression: Enteritis, Pneumonia, Anxiety Instructions: When You Have Pneumonia, ED Understanding Colitis Prescriptions: New sulfamethoxazole-trimethoprim [Bactrim DS] 800-160 mg tablet 1 tab PO BID 7 Days Qty: 14 0RF azithromycin [Zithromax Z-Lars] 250 mg tablet See Rx Instructions .ROUTE .COMPLEX Qty: 6 0RF Rx Instructions: For 250 mg dose pack: take 500 mg today (day 1), then 250 mg for 4 days (days 2-5) No Action trazodone 100 MG tablet 100 mg PO QHS oxycodone-acetaminophen [oxycodone-acetaminophen] 5-325 mg tablet 1 tab PO Q6H PRN PRN (Reason: Pain) 3 Days Qty: 12 0RF (DME) BreatheRite MDI Spacer Spacer MISCELLANEOUS X1 meloxicam 15 mg tablet 15 mg PO DAILY albuterol sulfate 90 mcg/actuation HFA aerosol inhaler 2 puff inhalation Q4H PRN PRN (Reason: wheezing) alprazolam 0.5 mg tablet 0.5 mg PO DAILY PRN (Reason: panic attack) amitriptyline 10 mg tablet 10 mg PO QHS lidocaine 5 % adhesive patch,medicated 1 patch topical Q24H Rx Instructions: WEAR PATCH FOR 12 HOURS AND THEN REMOVE FOR 12 HOURS BEFORE APPLYING A NEW ONE gabapentin 300 mg capsule 300 mg PO TID nystatin 100,000 unit/mL suspension 5 ml PO Q6H tizanidine 4 mg tablet 4 mg PO Q6H PRN PRN (Reason: muscle relaxation) Primary Care Provider: Tamika Mario Referrals: Tamika Mario MD [Primary Care Provider] - Activity Restrictions/Additional Instructions: Your workup today showed inflammation of your intestines known as enteritis. Take the Bactrim to help resolve this as it may be due to a bacterial infection. It also displayed some changes in the right lower lung concerning for pneumonia and therefore use the Z-Lars as directed. You can continue all of your home medication as directed by your family doctor with these medications and return to the ER should you have any further concerns Print Language: Mozambican Disposition Disposition: Home, Self Care Discharge Date/Time: 02/27/24 04:28
[2024-02-27] MEDS: Azithromycin 250 MG Tablet 500 MG PO (04:27)
[2024-02-27] MEDS: Smz/Tmp Ds Tablet 1 TABLET PO (04:27)
== END 2024-02-27 04:28 | disposition home or self-care (01) ==
PROVIDERS: Emergency Provider Emergency Medicine; PCP Internal Medicine; Visit Provider Emergency Medicine
DX: J18.9 Pneumonia, unspecified organism (principal); K52.9 Noninfective gastroenteritis and colitis, unspecified; G89.29 Other chronic pain; R10.13 Epigastric pain; M54.9 Dorsalgia, unspecified; M79.604 Pain in right leg; F41.9 Anxiety disorder, unspecified; F17.210 Nicotine dependence, cigarettes, uncomplicated; Z79.899 Other long term (current) drug therapy
CPT/HCPCS: 74177; 80048; 81001; 81025; 85025; A4216; J2405; J7030; Q9967

== ENCOUNTER 2024-02-27 16:55 | Emergency (ER) | payer MEDICAID, SELFPAY ==
[2024-02-27 16:57] VITALS: BP 136/90; PULSE 92; RESP 22; TEMP 36.1; O2SAT 100; BMI 20.4
[2024-02-27 16:58] VITALS: BP 109/67; PULSE 62; RESP 17; TEMP 36.3; O2SAT 97
--- NOTE | 2024-02-27 17:06 | ED.VIS.DYS ---
HPI History of Present Illness Chief Complaint: Shortness of Breath PFSH PFSH Medical History Right rotator cuff tear Wears partial dentures Hepatitis Smoker History of echocardiogram History of stress test Cardiology follow-up encounter History of CHF (congestive heart failure) Esophageal tear Anxiety Home Medications ?Medication ?Instructions ?Recorded ?Last Taken ?Type trazodone 100 mg tablet 100 mg PO QHS 01/03/17 06/06/22 History oxycodone-acetaminophen 5 mg-325 1 tab PO Q6H PRN PRN Pain 3 days 09/04/22 Unknown Rx mg tablet #12 TABLETS inhalational spacing device 10/09/23 Unknown History (BreatheRite MDI Spacer) meloxicam 15 mg tablet 15 mg PO DAILY 01/01/24 Unknown History albuterol sulfate 90 mcg/actuation 2 puff inhalation Q4H PRN PRN 01/06/24 Unknown History aerosol inhaler wheezing alprazolam 0.5 mg tablet 0.5 mg PO DAILY PRN panic attack 02/27/24 Unknown History amitriptyline 10 mg tablet 10 mg PO QHS 02/27/24 Unknown History amoxicillin 875 mg-potassium 1 tab PO BID 7 days #14 tabs 02/27/24 Unknown Rx clavulanate 125 mg tablet azithromycin 250 mg tablet See Rx Instructions PO .COMPLEX #6 02/27/24 Unknown Rx (Zithromax Z-Lars) tabs gabapentin 300 mg capsule 300 mg PO TID 02/27/24 Unknown History lidocaine 5 % topical patch 1 patch topical Q24H 02/27/24 Unknown History nystatin 100,000 unit/mL oral 5 ml PO Q6H 02/27/24 Unknown History suspension sulfamethoxazole 800 1 tab PO BID 7 days #14 tabs 02/27/24 Unknown Rx mg-trimethoprim 160 mg tablet (Bactrim DS) tizanidine 4 mg tablet 4 mg PO Q6H PRN PRN muscle 02/27/24 Unknown History relaxation Allergy/AdvReac Type Severity Reaction Status Date / Time escitalopram (From Lexapro) Allergy Other Verified 02/27/24 16:57 lamotrigine (From Lamictal) Allergy Hives Verified 02/27/24 16:57 nitrofurantoin (From Allergy Unknown Verified 02/27/24 16:57 Macrobid) nitrofurantoin Allergy Unknown Verified 02/27/24 16:57 macrocrystalline (From Macrobid) codeine AdvReac Nausea Verified 02/27/24 16:57 Surgical History Hx of surgical procedure Hx of removal of ovary History of tonsillectomy and adenoidectomy Social History household members: family housing: house Smoking Status: Current every day smoker tobacco type: cigarettes EXAM Physical Exam Const Vital Signs: 02/27/24 16:57 Temperature 97 F L Temperature Source Temporal Pulse Rate 92 Respiratory Rate 22 H Blood Pressure 136/90 H Blood Pressure Mean 105 Pulse Ox 100 Oxygen Delivery Method Room Air MDM MDM MDM Narrative Medical decision making narrative: HISTORY OF PRESENT ILLNESS: 44-year-old female presents with multiple complaints including shortness of breath headache and not feeling good. When asked what brought her into the ED today she did not mention shortness of breath, headache or chest pain. She endorsed right lower abdominal/groin pain. States has been ongoing for several days to weeks. Denies any urinary complaints. Denies any change in bowel habits. No recent travel or strange foods. Notes she received antibiotics earlier to treat enteritis and pneumonia however all pharmacies are closed and she cannot fill her antibiotic prescription. The patient denies recent surgery in the last 4 weeks or immobilization in the last 3 days, denies previous diagnosis of DVT or PE, hemoptysis, unilateral leg swelling or malignancy with treatment the last 6 months or palliative. No estrogen use noted. REVIEW OF SYSTEMS: Pertinent positives: Right lower quadrant abdominal pain Pertinent negatives: Vomiting, fever, chest pain, shortness of breath, headache PHYSICAL EXAM: Nursing triage notes reviewed, Vital signs reviewed Constitutional: please see mdm HENT: MMM Eyes: Pupils equal round and reactive to light, Extraocular muscles intact Neck: No stridor, no JVD, full neck ROM Lungs: Clear to auscultation, No wheezing or rales. No increased work of breathing, no conversational dyspnea, no accessory muscle use, no nasal flaring. No respiratory distress noted Heart: Regular rate and rhythm, No murmurs, No rubs and No gallops, 2+ distal pulses (radial, femoral, posterior tibial) in all extremities Abdomen: Soft, there is no tenderness, rigidity, rebound or guarding, no obvious peritoneal signs, no palpable pulsatile abdominal masses, no auscultated abdominal bruit : No CVAT Extremities: No edema, full range of motion bilateral upper extremities. Neuro: Alert and oriented x3, neuro exam at baseline, cranial nerves II through XII are intact. No pain with extraocular muscle movement. There is negative test of skew. 5 of 5 strength in upper and lower extremities in flexion extension. Intact sensation to light touch in upper and lower extremity dermatomes. No truncal or extremity ataxia. No dysdiadochokinesia. Normal gait. 2+ reflexes in upper and lower extremities. No meningeal signs. Negative Babinski. NIH of 0.. Intact 5/5 strength with ok sign (median), intact finger abduction (ulnar) intact wrist extension (radial n). Intact sensation in the radial, ulnar, and median nerve distributions. Axillary nerve function intact Skin: No rash or lesions noted MEDICAL DECISION MAKING: Chief Complaint: Shortness of breath, shoulder pain External records reviewed: Reviewed ED visit from earlier today. Imaging studies reviewed: Reviewed CT scan of the pelvis earlier today which showed evidence of right lower lobe pneumonia. CBC showed leukocytosis. BMP was remarkable for mild hypokalemia, but no evidence of endorgan hypoperfusion or metabolic acidosis or acute kidney injury. Urine test and urine were negative. Factors affecting care: Chronic right shoulder pain secondary rotator cuff injury, anxiety MDM Narrative: The patient was initially hemodynamically stable, afebrile and nontoxic-appearing. Exam without focal neurologic deficits. Lungs are overall clear. The patient was not displaying any signs respiratory distress. There is no focal abnormalities noted to the right shoulder. No step-offs, no deformities, full range of motion. She denied any chest pain or shortness of breath to me. She was more concerned about right lower quad abdominal pain. After reviewing the patient's prior images and labs is likely secondary to enteritis. Given her CT scan was done within 12 hours of her presentation I do not feel that it should be repeated. She has not been able to take her antibiotics given pharmacies are closed on . Will prescribe antibiotics here and give her prescriptions here in the emergency department via meds to beds. Patient also ambulated in the emergency department to assure there is no sign of hypoxia with exertion secondary to recent diagnosed pneumonia. Patient ambulated without hypoxia. Ordered meds to beds however patient refused I considered the following differential diagnosis: Pneumonia, acute on chronic right shoulder pain The patient and/or family, caregivers express understanding. The patient and/or family, caregivers agrees with the plan. Shared decision making: I will have a discussion with the patient and or visitors regarding risk/benefits of further testing or admission. They will be made aware of of the risk/benefits inherent in this decision they will be given the opportunity to voice understanding. Total critical care time today provided was at least 0 minutes. This excludes separately billable procedures. Critical care time (if documented) is secondary to the patient having high probability of clinically significant/life threatening deterioration in the patient's condition which required my urgent intervention. Impression: 1. Community-acquired pneumonia 2. Dyspnea 3. Acute on chronic right shoulder pain Dispo: Discharge This note was generated with [employer] dictation software. It may contain incorrect words, spelling, and punctuation that were not noted in review of the chart prior to signing. Discharge Plan Triage Chief Complaint: Shortness of Breath ED Provider: Iain Reina Dx/Rx/DC Orders Prescriptions: New amoxicillin-pot clavulanate 875-125 mg tablet 1 tab PO BID 7 Days Qty: 14 0RF No Action trazodone 100 MG tablet 100 mg PO QHS oxycodone-acetaminophen [oxycodone-acetaminophen] 5-325 mg tablet 1 tab PO Q6H PRN PRN (Reason: Pain) 3 Days Qty: 12 0RF (DME) BreatheRite MDI Spacer Spacer MISCELLANEOUS X1 meloxicam 15 mg tablet 15 mg PO DAILY albuterol sulfate 90 mcg/actuation HFA aerosol inhaler 2 puff inhalation Q4H PRN PRN (Reason: wheezing) alprazolam 0.5 mg tablet 0.5 mg PO DAILY PRN (Reason: panic attack) amitriptyline 10 mg tablet 10 mg PO QHS lidocaine 5 % adhesive patch,medicated 1 patch topical Q24H Rx Instructions: WEAR PATCH FOR 12 HOURS AND THEN REMOVE FOR 12 HOURS BEFORE APPLYING A NEW ONE gabapentin 300 mg capsule 300 mg PO TID nystatin 100,000 unit/mL suspension 5 ml PO Q6H tizanidine 4 mg tablet 4 mg PO Q6H PRN PRN (Reason: muscle relaxation) sulfamethoxazole-trimethoprim [Bactrim DS] 800-160 mg tablet 1 tab PO BID 7 Days Qty: 14 0RF azithromycin [Zithromax Z-Lars] 250 mg tablet See Rx Instructions .ROUTE .COMPLEX Qty: 6 0RF Rx Instructions: For 250 mg dose pack: take 500 mg today (day 1), then 250 mg for 4 days (days 2-5) Primary Care Provider: Tamika Mario Referrals: Tamika Mario MD [Primary Care Provider] - Print Language: Montserratian
[2024-02-27] MEDS: Amox/Clavulanate 875 MG Tablet PO (17:50)
[2024-02-27 17:53] VITALS: BP 109/75; PULSE 65; RESP 17; TEMP 36.6; O2SAT 98
== END 2024-02-27 18:09 | disposition home or self-care (01) ==
PROVIDERS: Emergency Provider Emergency Medicine; PCP Internal Medicine; Visit Provider Emergency Medicine
DX: J18.9 Pneumonia, unspecified organism (principal); R10.31 Right lower quadrant pain; M25.511 Pain in right shoulder; G89.29 Other chronic pain; F41.9 Anxiety disorder, unspecified; F17.210 Nicotine dependence, cigarettes, uncomplicated; Z79.899 Other long term (current) drug therapy
CPT/HCPCS: 74177; 80048; 81001; 81025; 85025; 96361; 96374; 96375; 99282; 99284; J7030; Q9967; A4216; J2405

== ENCOUNTER 2024-03-18 13:21 | Emergency (ER) | payer MEDICAID, SELFPAY ==
[2024-03-18 13:22] VITALS: BP 121/83; PULSE 101; RESP 22; TEMP 36.7; O2SAT 99; BMI 19.5
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
--- NOTE | 2024-03-18 14:46 | CT_ITS ---
EXAM: CT MAXILLOFACIAL WITHOUT INTRAVENOUS CONTRAST CLINICAL INDICATION: dental pain r lower TECHNIQUE: Helically acquired images were obtained of the face without intravenous contrast. This CT exam was performed using one or more of the following dose reduction techniques: automated exposure control, adjustment of the mA and/or kV according to patient size, and/or use of iterative reconstruction technique. RADIATION DOSE: CTDIvol = 29.38 mGy, DLP = 584.19 mGy-cm COMPARISON: No relevant prior studies available. FINDINGS: BONES/JOINTS: Unremarkable. No displaced fracture. No discrete lytic or blastic abnormalities. SOFT TISSUES: Unremarkable. No focal subcutaneous swelling. No discrete fluid collections. ORBITS: Unremarkable. Both globes are unremarkable. Extraocular muscles are normal. Retrobulbar fat appears unremarkable. SINUSES: Unremarkable as visualized. Clear. MASTOID AIR CELLS: Unremarkable as visualized. Clear. DENTAL: No acute findings. No periodontal osseous erosion. CT/Sinus/Facial Bone IMPRESSION: Negative CT facial bones without intravenous contrast. Electronically Signed: Andrew Quispe MD at 15:37 EDT ,
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
--- NOTE | 2024-03-18 14:46 | RAD_ITS ---
INDICATION: lac EXAMINATION/TECHNIQUE: X-RAY - LEFT XR Forearm 2 Views 2 VIEWS COMPARISON: No relevant prior comparison study available FINDINGS: SOFT TISSUES: No soft tissue swelling or gas. No radiopaque foreign body. BONES/JOINTS: No acute fracture or subluxation.. Normal alignment. Preservation of the joint space.. No sclerotic or destructive changes observed. RAD/Forearm 2 Views IMPRESSION: Negative. Electronically Signed: Andrew Quispe MD at 15:40 EDT ,
--- NOTE | 2024-03-18 15:15 | RAD_ITS ---
EXAM: XR LEFT ELBOW COMPLETE, 3 OR MORE VIEWS CLINICAL INDICATION: pain TECHNIQUE: Frontal, lateral and oblique views of the left elbow. COMPARISON: No relevant prior studies available. FINDINGS: BONES/JOINTS: Unremarkable. There is no displacement of the anterior or posterior fat pads. No acute fracture. No subluxation. Normal alignment. Preservation of the joint space. No destructive or sclerotic lesions. SOFT TISSUES: Unremarkable. No soft tissue swelling or gas. No radiopaque foreign body. RAD/Elbow min 3 Views IMPRESSION: Negative left elbow. Electronically Signed: Andrew Quispe MD at 15:39 EDT ,
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
[2024-03-18] MEDS: Diphth,Pertuss(Acell),Tet Vac 0.5 ML Vial IM (15:32)
[2024-03-18] MEDS: LORazepam 1 MG Tablet PO (16:13)
[2024-03-18] MEDS: Lidocaine 1% (20 ml mdv) 20 ML Vial 10 ML INFILT (16:13)
== END 2024-03-18 16:49 | disposition home or self-care (01) ==
PROVIDERS: Emergency Provider Emergency Medicine; PCP Internal Medicine; Visit Provider Emergency Medicine
DX: S51.812A Laceration without foreign body of left forearm, initial encounter (principal); S02.5XXA Fracture of tooth (traumatic), initial encounter for closed fracture; Y04.8XXA Assault by other bodily force, initial encounter; F41.9 Anxiety disorder, unspecified; F17.210 Nicotine dependence, cigarettes, uncomplicated; Z79.899 Other long term (current) drug therapy; Z23 Encounter for immunization
CPT/HCPCS: 12002; 70450; 70486; 72125; 73080; 73090; 90471; 90715; 99284

== ENCOUNTER → 2024-06-28 | Outpatient (CLI) | payer MEDICAID, SELFPAY ==
--- NOTE | 2024-06-28 09:53 | US_ITS ---
EXAM: US ABDOMEN LIMITED CLINICAL INDICATION: lump left forearm -- please eval for vascularity TECHNIQUE: Real-time ultrasound of the soft tissues of the abdomen with image documentation. COMPARISON: No relevant prior studies available. FINDINGS: SOFT TISSUES: There is an ovoid subcutaneous complex fluid collection, partially hypoechoic to anechoic with mildly echogenic central contents. Doppler box placed on the lesion shows no internal or peripheral vascularity and there appears to be a tiny tract to the skin. 8 mm x 3 mm by 8mm complex collection. No involvement of underlying muscle. The marker is labeled over the dorsal or lateral distal forearm. OTHER FINDINGS: The 2 major intraluminal echogenic structures are 4 mm x 1 mm and 2 mm x 0.5 mm respectively. US/Other Unlisted US Procedure IMPRESSION: Subcutaneous elongated pocket of fluid with 2 echogenic linear structures which may be foreign bodies. Tiny hypoechoic tract towards the skin. No internal or significant peripheral vascularity on limited views with color Doppler. Electronically Signed: Deena Reardon MD at 2:06 EST ,
== END | disposition home or self-care (01) ==
LOC: US 09:52
PROVIDERS: PCP Internal Medicine; Referring Provider Plastic Surgery; Visit Provider Plastic Surgery
DX: R22.32 Localized swelling, mass and lump, left upper limb (principal)
CPT/HCPCS: 76999

== ENCOUNTER 2024-07-02 22:52 | Emergency (ER) | payer MEDICAID, SELFPAY ==
[2024-07-02 22:53] VITALS: BP 147/83; PULSE 78; RESP 16; TEMP 36.6; O2SAT 98; BMI 20.9
--- NOTE | 2024-07-02 23:04 | EDS_ITS ---
HPI History of Present Illness Chief Complaint: Headache Informant: patient and spouse/S.O. Narrative Narrative: 44-year-old female presenting to the emergency room with right periorbital headache. Patient states that she used to get headaches which she refers to as migraines describes them as all over. She has not had some for quite a while. She notes that last evening she began to have blurry vision in the right eye and right periorbital pain that radiates towards her ear. She associates this with nausea. She denies fever rash significant rhinorrhea. She denies any tearing of the eye. No hearing change. No arm or leg symptoms. She notes by this morning was feeling better after taking Excedrin. However the headache returned again this evening she has not got relief with the Excedrin. Patient denies any recent head injuries. [facility] Medical History Right rotator cuff tear Wears partial dentures Hepatitis Smoker History of echocardiogram History of stress test Cardiology follow-up encounter History of CHF (congestive heart failure) Esophageal tear Anxiety Home Medications ?Medication ?Instructions ?Recorded ?Last Taken ?Type trazodone 100 mg tablet 100 mg PO QHS 01/03/17 06/06/22 History oxycodone-acetaminophen 5 mg-325 1 tab PO Q6H PRN PRN Pain 3 days 09/04/22 Unknown Rx mg tablet #12 TABLETS inhalational spacing device 10/09/23 Unknown History (BreatheRite MDI Spacer) meloxicam 15 mg tablet 15 mg PO DAILY 01/01/24 Unknown History albuterol sulfate 90 mcg/actuation 2 puff inhalation Q4H PRN PRN 01/06/24 Unknown History aerosol inhaler wheezing alprazolam 0.5 mg tablet 0.5 mg PO DAILY PRN panic attack 02/27/24 Unknown History amitriptyline 10 mg tablet 10 mg PO QHS 02/27/24 Unknown History azithromycin 250 mg tablet See Rx Instructions PO .COMPLEX #6 02/27/24 Unknown Rx (Zithromax Z-Lars) tabs gabapentin 300 mg capsule 300 mg PO TID 02/27/24 Unknown History lidocaine 5 % topical patch 1 patch topical Q24H 02/27/24 Unknown History nystatin 100,000 unit/mL oral 5 ml PO Q6H 02/27/24 Unknown History suspension sulfamethoxazole 800 1 tab PO BID 7 days #14 tabs 02/27/24 Unknown Rx mg-trimethoprim 160 mg tablet (Bactrim DS) tizanidine 4 mg tablet 4 mg PO Q6H PRN PRN muscle 02/27/24 Unknown History relaxation Allergy/AdvReac Type Severity Reaction Status Date / Time escitalopram (From Lexapro) Allergy Other Verified 07/02/24 22:53 lamotrigine (From Lamictal) Allergy Hives Verified 07/02/24 22:53 nitrofurantoin (From Allergy Unknown Verified 07/02/24 22:53 Macrobid) nitrofurantoin Allergy Unknown Verified 07/02/24 22:53 macrocrystalline (From Macrobid) codeine AdvReac Nausea Verified 07/02/24 22:53 Family History Mother Anxiety Hypertension High cholesterol Diabetes Depression Father Hypertension Surgical History Hx of surgical procedure Hx of removal of ovary History of tonsillectomy and adenoidectomy Social History household members: family housing: house Smoking Status: Current every day smoker tobacco type: cigarettes substance use type: marijuana additional social history: pt does not vape, does not take aspirin, pt does report using marijuana daily,does uses edibles on occassion, does use ibuprofen as needed. ROS ROS ED Constitutional Constitutional ED: Denies chills, fever(s) or weight loss Eyes Eyes: Reports blurry vision right; Denies change in vision or diplopia ENT ENT ED: Denies ear pain, rhinorrhea or sore throat Cardiovascular Cardiovascular: Denies chest pain, orthopnea, palpitations or racing heartbeat Respiratory/Chest Respiratory/Chest: Denies cough, dyspnea or orthopnea Gastrointestinal Gastrointestinal: Denies abdominal pain, diarrhea, nausea or vomiting Genitourinary Genitourinary ED: Denies dysuria, hematuria or urinary frequency Musculoskeletal Musculoskeletal: Denies arthralgias or myalgias Integumentary Denies abscess or rash Neurologic Neurologic: Reports headache(s); Denies paresthesias or weakness Psychiatric Psychiatric: Denies anxiety, depression, suicidal ideation or suicidal thoughts Endocrine Endocrinology: Denies polydipsia, polyphagia or polyuria Allergic/Immunologic Allergic/Immunologic ED: Denies mouth swelling, tongue swelling or urticaria EXAM Physical Exam Const Vital Signs: 07/02/24 22:53 Temperature 97.9 F Temperature Source Oral Pulse Rate 78 Respiratory Rate 16 Blood Pressure 147/83 H Blood Pressure Mean 104 Pulse Ox 98 Oxygen Delivery Method Room Air Positive well nourished and well developed General Appearance ED: well developed HEENT Reports normocephalic, head/scalp atraumatic and moist mucous membranes HEENT Narrative: Patient reports tenderness to palpation over the right forehead right maxillary sinus extending to the preauricular region of the face. I do not appreciate significant swelling. There is no overlying erythema or rash. Eyes PERRL and EOMs intact bilaterally Eyes Narrative: No conjunctival injection. No tearing. Anterior chamber appears deep and quiet. There is no photophobia. Neck no lymphadenopathy, supple and no JVD Resp normal respiratory effort and clear to auscultation bilaterally Cardio regular rate, regular rhythm and no murmurs GI normal to inspection, nondistended, normoactive bowel sounds and non-tender Palpation: soft Back/Spine no CVA tenderness and normal ROM Extremity normal to inspection General Extremety ED: Negative for edema General Extremity: Negative for edema Neuro oriented x3 and CN's II-XII intact bilaterally Sensorium / Orientation: alert Motor Exam: strength 5/5 throughout Psych mental status grossly normal Mood & Affect: anxious; Negative for depressed or tearful Skin no rashes or lesions noted and no wounds MDM MDM MDM Narrative Medical decision making narrative: Differential diagnosis includes migraine temporal arteritis shingles and headache NOS ocular emergencies such as acute glaucoma arterial occlusion venous thrombosis Patient received Toradol Compazine and Benadryl and feels significantly better. Vision is better. I do not not appreciate any rash. She remains neurologically intact. She be discharged home History & Record Review Discussion w/independent historian: Patient and Significant other Discharge Plan Triage Chief Complaint: Headache ED Provider: John Bass Dx/Rx/DC Orders Clinical Impression: Headache, Facial pain Instructions: ED Headache Unspecified Prescriptions: No Action trazodone 100 MG tablet 100 mg PO QHS oxycodone-acetaminophen [oxycodone-acetaminophen] 5-325 mg tablet 1 tab PO Q6H PRN PRN (Reason: Pain) 3 Days Qty: 12 0RF (DME) BreatheRite MDI Spacer Spacer MISCELLANEOUS X1 meloxicam 15 mg tablet 15 mg PO DAILY albuterol sulfate 90 mcg/actuation HFA aerosol inhaler 2 puff inhalation Q4H PRN PRN (Reason: wheezing) alprazolam 0.5 mg tablet 0.5 mg PO DAILY PRN (Reason: panic attack) amitriptyline 10 mg tablet 10 mg PO QHS lidocaine 5 % adhesive patch,medicated 1 patch topical Q24H Rx Instructions: WEAR PATCH FOR 12 HOURS AND THEN REMOVE FOR 12 HOURS BEFORE APPLYING A NEW ONE gabapentin 300 mg capsule 300 mg PO TID nystatin 100,000 unit/mL suspension 5 ml PO Q6H tizanidine 4 mg tablet 4 mg PO Q6H PRN PRN (Reason: muscle relaxation) sulfamethoxazole-trimethoprim [Bactrim DS] 800-160 mg tablet 1 tab PO BID 7 Days Qty: 14 0RF azithromycin [Zithromax Z-Lars] 250 mg tablet See Rx Instructions .ROUTE .COMPLEX Qty: 6 0RF Rx Instructions: For 250 mg dose pack: take 500 mg today (day 1), then 250 mg for 4 days (days 2-5) Primary Care Provider: Tamkia Mario Referrals: Tamika Mario MD [Primary Care Provider] - Activity Restrictions/Additional Instructions: I would recommend taking 600 mg of Motrin every 6 hours over the next 24 hours before using continued Excedrin over the next 24 hours to prevent rebound headache If you continue to have symptoms or return of symptoms you may want to discuss abortive therapies for headaches with your doctor Print Language: Bahamian Disposition Disposition: Home, Self Care
[2024-07-02] MEDS: proCHLORPERazine 10 MG/2 ML Vial IV (23:15)
[2024-07-02] MEDS: Ketorolac 30 MG/ML Syringe IV (23:15)
[2024-07-02] MEDS: DiphenhydrAMINE 50 MG/ML Syringe IV (23:15)
== END 2024-07-03 00:43 | disposition home or self-care (01) ==
PROVIDERS: Emergency Provider Emergency Medicine; PCP Internal Medicine; Visit Provider Emergency Medicine
DX: R51.9 Headache, unspecified (principal); F17.210 Nicotine dependence, cigarettes, uncomplicated; F12.90 Cannabis use, unspecified, uncomplicated
CPT/HCPCS: 96374; 96375; 99284; A4216

== ENCOUNTER → 2024-07-03 | Outpatient (CLI) | payer MEDICAID, SELFPAY ==
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
== END | disposition home or self-care (01) ==
LOC: RAD 10:26
PROVIDERS: PCP Internal Medicine; Referring Provider Plastic Surgery; Visit Provider Plastic Surgery
DX: D48.19 Other specified neoplasm of uncertain behavior of connective and other soft tissue (principal)
CPT/HCPCS: 73090

== ENCOUNTER 2024-07-19 07:41 | Day surgery (SDC) | payer MEDICAID, SELFPAY ==
[2024-07-19] VITALS (8 sets, daily range): BP systolic 126–136; BP diastolic 72–83; PULSE 81–90; RESP 16–20; TEMP 36.1–37.3; O2SAT 99–100; BMI 20.1
--- NOTE | 2024-07-19 | CYST_PTH ---
PATIENT: NEEL MEDINA LOC: [facility] [place] U#:[id number] AGE/SX: 44/F ROOM: RE07/19/[address]: Dr. Constanza Cordova MD : 1980 BED: DIS: 07/19/2024 SPEC #: [id number] RECD: 07/19/24 13:35 STATUS: JEAN FARMER #: [id number] YAMILA: 07/19/24 00:[address]: Constanza Cordova DEPT: SURGICAL PATHOLOGY RECD BY: Bruce Arroyo ENTERED: 07/19/24 13:36 SP TYPE: Cyst OTHR DR: Dr. Tamika Mario MD Tissues: CYST Procedures: Surgery Specimen Level III HEADER OPERATION: Excision cyst left forearm (2cm) PRE-OP DIAGNOSIS: Cyst left forearm TISSUE SUBMITTED: Cyst, left forearm MICROSCOPIC DIAGNOSIS Left forearm cyst, excision: Acute and chronic inflammation, abscess formation and foreign body giant cell reaction. Negative for malignancy. See comment. 07/20/2024 COMMENT A foreign body (splinter) is noted in the area of inflammation and abscess formation. Clinical correlation and appropriate follow up are necessary. MICROSCOPIC DESCRIPTION Slides are reviewed. GROSS DESCRIPTION Received in fixative is one container labeled with the patient's name and designated Cyst, left forearm. The specimen consists of a piece of castanon-white skin ellipse measuring 1.5 x 1cm and up to 0.2cm in thickness. The specimen is inked, serially sectioned and submitted entirely in one cassette. 07/19/2024 TC:2 CPT:90720
[2024-07-19] MEDS: 0.9% Normal Saline (1000mL) 1,000 ML 15 ML IV (08:00)
--- NOTE | 2024-07-19 08:54 | PRE.ANES_ITS ---
ASA Classification* ASA Classification ASA Classification: 2 Assessment & Plan Anesthesia* Anesthesia Assessment Anesthesia Assessment: Discussed sedation and/or anesthesia options, risks, benefits, and alternatives with patient/parents/legal guardian/POA. Questions invited. The patient/parents/legal guardian/POA seems to understand and agrees to proceed with anesthesia plan. Reviewed the physical assessment, medical history, allergy history and patient home medications list prior to surgery/procedure/anesthetic and documented any changes. Performed airway and anesthesia risk assessments. Anesthesia Type Anesthesia Type: General History Source History Obtained from:: Patient and Chart Anesthesia Focused Assessment* Temperature: 99.1 F Pulse Rate: 81 Blood Pressure: 126/83 Respiratory Rate: 17 Pulse Ox: 99 Oxygen Delivery Method: Room Air Airway Assessment Mouth opens: >3 cm Mallampati Score: II Teeth Condition: Chipped/Broken (Chipped #26), Missing (Patient has several missing teeth. Rest of the teeth are tight.) and Partial (Patient has upper partial.) Neck Range of motion (ROM): Full ROM Focused Labs Anesthesia Preop lab: CBC WBC 14.0 K/mm3 (4.4-11.0) H 02/27/24 01:25 RBC 4.11 M/mm3 (4.2-5.4) L 02/27/24 01:25 Hgb 13.5 g/dL (12.0-15.0) 02/27/24 01:25 Hct 39.2 % (37-47) 02/27/24 01:25 Plt Count 317 K/mm3 (150-450) 02/27/24 01:25 CHEMISTRY Potassium 3.2 mmol/L (3.5-5.1) L 02/27/24 01:25 Sodium 139 mmol/L (136-145) 02/27/24 01:25 Magnesium 1.9 mg/dL (1.6-2.6) 10/09/23 04:20 BUN 7 mg/dL (7-18) 02/27/24 01:25 Creatinine 0.76 mg/dL (0.55-1.02) 02/27/24 01:25 Glucose 96 mg/dL (74-106) 02/27/24 01:25 TSH 8.20 uIU/mL (0.358-3.74) H 08/07/19 20:58 COAG PT 13.9 SECONDS (11.7-14.9) 01/03/17 16:25 Urine Test Negative Negative 02/27/24 02:11 Pre-Assessment Diagnosis/Proposed Procedure Planned Operative Procedure(s): (L) Excision cyst left forearm(2cm) Anesthesia History 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 When Was Last Pacemaker Check QUESTION #4 FULL TEXT: You/Your Family Experience fever (hyperthermia) with Anesthesia Last Oral Intake Last Oral intake: Last Oral Intake NPO since 00:00 07/19/24 08:13 Meds taken in AM with sips of No 07/19/24 08:13 water? Meds patient instructed to take am of surgery PONV PONV - content producer: PONV - content producer Female Yes 07/17/24 10:46 HX of Motion Sickness No 07/17/24 10:46 HX of N/V After Surgery No 07/17/24 10:46 Non-Smoker No 07/17/24 10:46 Duration of Surgery greater No 07/17/24 10:46 than 60 minutes Number of Risk Factors 1 07/17/24 10:46 PONV Score Low Risk 07/17/24 10:46 Height & Weight Height & Weight: Anesthesia: Height & Weight Height 5 ft 5 in 07/19/24 08:13 Weight: 55 kg 07/19/24 08:13 Body Mass Index (BMI) 20.1 07/19/24 08:13 Respiratory Assessment Respiratory Assessment - content producer: Respiratory Tract Infection Hx - content producer Hx Respiratory Tract Infection No 07/17/24 10:46 Any additional information?: Yes Hx Respiratory Tract Infection: Yes (Patient has a slight smoker's cough.) STOP Sleep Apnea STOP Sleep Apnea - content producer: STOP Sleep Apnea - content producer Hx Hypertension No 07/17/24 10:46 Hx Sleep Apnea No 07/17/24 10:46 CPAP BIPAP Do you snore loudly (louder No 07/17/24 10:46 than talking or can be heard Do you often feel tired/ No 07/17/24 10:46 fatigued/ sleepy during daytime? Has anyone observed you stop No 07/17/24 10:46 breathing during sleep? STOP Results Negative 07/17/24 10:46 QUESTION #5 FULL TEXT : Do you snore loudly (louder than talking or can be heard through closed doors)? 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 Specify any problems Hx of Preganancy in last 3 N/A 07/17/24 10:46 Months Nurse Filling Out Transfusion NBUCHER 07/17/24 10:46 & Questions: Date: 07/17/24 07/17/24 10:46 Time: 10:47 07/17/24 10:46 Patient unable to answer at this time (ie. confused, unrespo /Reproduction History /Reproductive History - content producer: /Reproductive Hx- content producer Hx Now No 07/17/24 10:46 Gestational Age (in weeks): EDC: Hx Hx Para Hx Section SAB No 07/17/24 10:46 Active Medications Active Medications: Current Medications Generic Name Dose Route Start Last Admin Trade Name Freq PRN Reason Stop Dose Admin Cefazolin Sodium 2 gm/ N/A 20 mls @ 400 mls/hr 07/19/24 09:20 IV 07/19/24 09:22 PREOP ONE Sodium Chloride 1,000 mls @ 15 mls/hr 07/19/24 08:00 07/19/24 08:00 IV 07/24/24 21:19 15 mls/hr .Q48H LYNNE Administration Protocol [facility] Medical History Marijuana use Right rotator cuff tear Wears partial dentures Hepatitis Smoker History of echocardiogram History of stress test Cardiology follow-up encounter History of CHF (congestive heart failure) Esophageal tear Anxiety Home Medications ?Medication ?Instructions ?Recorded ?Last Taken ?Type trazodone 100 mg tablet 100 mg PO QHS 01/03/17 07/18/24 History inhalational spacing device 10/09/23 Unknown History (BreatheRite MDI Spacer) meloxicam 15 mg tablet 15 mg PO DAILY 01/01/24 07/18/24 History albuterol sulfate 90 mcg/actuation 2 puff inhalation Q4H PRN PRN 01/06/24 07/18/24 History aerosol inhaler wheezing lidocaine 5 % topical patch 1 patch topical Q24H 02/27/24 Unknown History tizanidine 4 mg tablet 4 mg PO Q6H PRN PRN muscle 02/27/24 Unknown History relaxation Allergy/AdvReac Type Severity Reaction Status Date / Time escitalopram (From Lexapro) Allergy Other Verified 07/19/24 07:56 lamotrigine (From Lamictal) Allergy Hives Verified 07/19/24 07:56 nitrofurantoin (From Allergy Unknown Verified 07/19/24 07:56 Macrobid) nitrofurantoin Allergy Unknown Verified 07/19/24 07:56 macrocrystalline (From Macrobid) codeine AdvReac Nausea Verified 07/19/24 07:56 Family History Mother Anxiety Hypertension High cholesterol Diabetes Depression Father Hypertension Surgical History History of tubal ligation History of lumpectomy of right breast History of repair of rotator cuff Hx of surgical procedure Hx of removal of ovary History of tonsillectomy and adenoidectomy Social History household members: family housing: house Smoking Status: Current every day smoker (Patient did smoke today.) tobacco type: cigarettes substance use type: marijuana additional social history: pt does not vape, does not take aspirin, pt does report using marijuana daily,does uses edibles on occassion, does use ibuprofen as needed. Review of Systems (Anesthesia) ROS Narrative System reviewed and no additional complaints, except as documented.
--- NOTE | 2024-07-19 11:24 | PCM.HP.BLA ---
History and Physical Date of Admission: 07/19/24 The patient is examined and there are no changes to the H&P dated 07/13/2024 The patient presents for excision of a cyst of the left forearm. An informed consent is obtained. The patient is marked in the preop holding area. Assessment & Plan Assessment/Plan (1) Neoplasm of uncertain behavior of connective and other soft tissue: PLAN: Plan For excision cyst left forearm.
[2024-07-19] MEDS: Cefazolin 2 GM in Syringe IV (11:50)
[2024-07-19] MEDS: Lidocaine 1% /Epi 1:100 (20ml) 20 ML Vial (12:04)
--- NOTE | 2024-07-19 12:51 | DCINST_ITS ---
Discharge Instructions Dressing / Incision Additional Dressing/Incision Instructions:: Keep your arm elevated is much as possible to decrease swelling and bruising. Take the oral antibiotic (Keflex) 2 times a day until finished. Keep the dressing dry and intact until seen in the office. Follow Up Care Please Follow Up With: Constanza Cordova MD When: In 1 week Test Results: Test results from this visit will be discussed in further detail at your follow- up appointment, if applicable. Discharge Plan Admission Attending Provider: Constanza Cordova Primary Care Provider: Tamika Mario Instructions Print Language: Mozambican Discharge Orders/Prescriptions Prescriptions: New cephalexin 500 mg capsule 500 mg PO BID 7 Days Qty: 14 0RF No Action trazodone 100 MG tablet 100 mg PO QHS (DME) BreatheRite MDI Spacer Spacer MISCELLANEOUS X1 meloxicam 15 mg tablet 15 mg PO DAILY albuterol sulfate 90 mcg/actuation HFA aerosol inhaler 2 puff inhalation Q4H PRN PRN (Reason: wheezing) lidocaine 5 % adhesive patch,medicated 1 patch topical Q24H Rx Instructions: WEAR PATCH FOR 12 HOURS AND THEN REMOVE FOR 12 HOURS BEFORE APPLYING A NEW ONE tizanidine 4 mg tablet 4 mg PO Q6H PRN PRN (Reason: muscle relaxation) Referrals / Follow Up: Tamika Mario MD [Primary Care Provider] - Disposition Disposition (needs filled in before D/C Order can be placed): Home, Self Care
--- NOTE | 2024-07-19 12:54 | OP.PCM_ITS ---
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: No Type of Anesthesia: General RN Documented Start/Stop Times: Operation Date: 07/19/24 09:20 Case Time Into Pre-Op 07/19/24 07:56 Out of Pre-Op 07/19/24 11:37 Anesthesia Start 07/19/24 11:40 Into Room 07/19/24 11:40 Procedure Start 07/19/24 12:04 Procedure End 07/19/24 12:47 Into Recovery 07/19/24 12:51 Procedure Start Time: 12:04 Procedure Stop Time: 12:47 Select all DRAINS/GRAFTS/IMPLANTS that apply: None Estimated Blood Loss: Minimal Specimen collected: Yes Description of specimen(s) removed: Scar and cystic lesion left forearm Description of surgery: The patient presents status post trauma to her left arm several months ago resulting in a wound which was attended in the ER. Subsequent to this, she has slowly developed a cystic type lesion in the area which is tender to touch. She presents for excision of the cyst and submission for pathologic evaluation. Mention was made on ultrasound evaluation of possible foreign body. The patient is brought to the operating room and placed under general anesthesia in the supine position. The left arm is prepped and draped in usual sterile fashion. We initially began with incising an elliptical incision around the apex of the cyst. Dissection continues subcutaneously down to fascia. A portion of a possible foreign body was identified along with a cystic type lesion. These are removed and passed off the operative field to be sent to pathology. Hemostasis is controlled with cautery. The site is then closed in layers using Monocryl suture in the subcutaneous tissue and dermis. Skin edges are approximated with a running subcuticular Monocryl suture. Further refinement of the closure is done with a fast-absorbing gut. Xeroform gauze and a Coban wrap were used for dressing. She tolerated the procedure well was taken to the recovery area in an awake and stable condition. Needle and sponge counts are correct. Surgical Findings: As above Complications Complications: No Admit VTE Documentation VTE Mechan Device Prophylaxis: SCD's
--- NOTE | 2024-07-19 12:57 | PCM.POST.ANE ---
Anesthesia: Postop Eval I Current Vital Signs Temperature: 97.3 F Pulse Rate: 83 Blood Pressure: 136/80 Respiratory Rate: 20 Pulse Ox: 100 Oxygen Delivery Method: Room Air Assessment Airway patent: Yes Spontaneous unlabored respirations: Yes Mental status: Awake nausea: No Vomiting: No Anesthesia Complication: No Fluid Hydration Crystalloid volume administer (ml): 1,200 Total IV fluid infused: 1,200 Progress Note Anesthesia document: Postop Eval 1 completed: Yes
--- NOTE | 2024-07-19 19:14 | POSTOPAN2_ITS ---
Anesthesia Postop Eval I Sum Postop Eval Completion status Anesthesia document: Postop Eval 1 completed: Yes Anesthesia Postop Eval I Summary Anesthesia Postop Eval I Summary: Anesthesia Postop Eval I: Assessment Summary Airway patent Yes 07/19/24 12:58 [email or web address] Spontaneous unlabored Yes 07/19/24 12:58 [email or web address] respirations Mental status Awake 07/19/24 12:58 [email or web address] nausea No 07/19/24 12:58 [email or web address] Vomiting No 07/19/24 12:58 [email or web address] Anesthesia Postop Eval I: Fluid Summary Crystalloid volume administer 1,200 07/19/24 12:58 [email or web address] (ml) Colloids volume administered ( ml) Blood Product volume administered (ml) Total IV fluid infused 1,200 07/19/24 12:58 [email or web address] Anesthesia Postop Eval I: Summary Notes Anesthesia Complication No 07/19/24 12:58 [email or web address] Anesthesia Complication Comment: Post-operative progress note Anesthesia: Postop Eval II Evaluation Mental status: Awake and Calm Pain Level: 1 nausea: No Vomiting: No Complications Anesthesia Complication: No
--- NOTE | 2024-07-19 19:14 | PCM.POSTANE2 ---
Anesthesia Postop Eval I Sum Postop Eval Completion status Anesthesia document: Postop Eval 1 completed: Yes Anesthesia Postop Eval I Summary Anesthesia Postop Eval I Summary: Anesthesia Postop Eval I: Assessment Summary Airway patent Yes 07/19/24 12:58 OIL [email or web address] [email or web address] Spontaneous unlabored Yes 07/19/24 12:58 OIL [email or web address] [email or web address] respirations Mental status Awake 07/19/24 12:58 OIL [email or web address] [email or web address] nausea No 07/19/24 12:58 OIL EXPLORATION [email or web address] Vomiting No 07/19/24 12:58 OIL [email or web address] [email or web address] Anesthesia Postop Eval I: Fluid Summary Crystalloid volume administer 1,200 07/19/24 12:58 OIL [email or web address] [email or web address] (ml) Colloids volume administered ( ml) Blood Product volume administered (ml) Total IV fluid infused 1,200 07/19/24 12:58 OIL [email or web address] [email or web address] Anesthesia Postop Eval I: Summary Notes Anesthesia Complication No 07/19/24 12:58 OIL [email or web address] [email or web address] Anesthesia Complication Comment: Post-operative progress note Anesthesia: Postop Eval II Evaluation Mental status: Awake and Calm Pain Level: 1 nausea: No Vomiting: No Complications Anesthesia Complication: No
== END 2024-07-19 13:45 | disposition home or self-care (01) ==
LOC: SDC 07:42 → AC 07:43
PROVIDERS: PCP Internal Medicine; Referring Provider Plastic Surgery; Visit Provider Plastic Surgery
PROC: (CPT 25071; principal; 2024-07-19 09:10)
DX: D48.115 Desmoid tumor of upper extremity and shoulder girdle (principal); L02.414 Cutaneous abscess of left upper limb; M79.5 Residual foreign body in soft tissue; X58.XXXD Exposure to other specified factors, subsequent encounter; Z18.33 Retained wood fragments; F12.90 Cannabis use, unspecified, uncomplicated; F17.210 Nicotine dependence, cigarettes, uncomplicated
CPT/HCPCS: 25071; 00400; 88304; J2405

== ENCOUNTER 2024-07-20 21:43 | Emergency (ER) | payer MEDICAID, SELFPAY ==
[2024-07-20 21:43] VITALS: BP 93/67; PULSE 92; RESP 18; TEMP 36.7; O2SAT 100; BMI 21.9
--- NOTE | 2024-07-20 22:09 | EX.ED.UPPERE ---
HPI History of Present Illness Chief Complaint: Upper Extremity Injury Informant: patient Narrative Narrative: Patient is a 44-year-old female with past medical history of anxiety and depression as well as chronic pain who takes Percocet daily. She states that yesterday she had to have a minor surgery to remove a cyst with foreign object in it in her left forearm. She states that it was uneventful and she has been taking her home medications but despite doing this the pain has persisted. She states that she believes that her son's friends got into her pain medication as she is currently out and cannot get it refilled for another few days. Therefore since she has been taking [id number] medication as well as her prescription medication without symptom improvement she presents for pain control. [facility] Medical History Marijuana use Right rotator cuff tear Wears partial dentures Hepatitis Smoker History of echocardiogram History of stress test Cardiology follow-up encounter History of CHF (congestive heart failure) Esophageal tear Anxiety Home Medications ?Medication ?Instructions ?Recorded ?Last Taken ?Type trazodone 100 mg tablet 100 mg PO QHS 01/03/17 07/18/24 History inhalational spacing device 10/09/23 Unknown History (BreatheRite MDI Spacer) meloxicam 15 mg tablet 15 mg PO DAILY 01/01/24 07/18/24 History albuterol sulfate 90 mcg/actuation 2 puff inhalation Q4H PRN PRN 01/06/24 07/18/24 History aerosol inhaler wheezing lidocaine 5 % topical patch 1 patch topical Q24H 02/27/24 Unknown History tizanidine 4 mg tablet 4 mg PO Q6H PRN PRN muscle 02/27/24 Unknown History relaxation cephalexin 500 mg capsule 500 mg PO BID 7 days #14 caps 07/19/24 Unknown Rx Allergy/AdvReac Type Severity Reaction Status Date / Time escitalopram (From Lexapro) Allergy Other Verified 07/20/24 21:44 lamotrigine (From Lamictal) Allergy Hives Verified 07/20/24 21:44 nitrofurantoin (From Allergy Unknown Verified 07/20/24 21:44 Macrobid) nitrofurantoin Allergy Unknown Verified 07/20/24 21:44 macrocrystalline (From Macrobid) codeine AdvReac Nausea Verified 07/20/24 21:44 Family History Mother Anxiety Hypertension High cholesterol Diabetes Depression Father Hypertension Surgical History History of tubal ligation History of lumpectomy of right breast History of repair of rotator cuff Hx of surgical procedure Hx of removal of ovary History of tonsillectomy and adenoidectomy Social History household members: family housing: house Smoking Status: Current every day smoker (Patient did smoke today.) tobacco type: cigarettes substance use type: marijuana additional social history: pt does not vape, does not take aspirin, pt does report using marijuana daily,does uses edibles on occassion, does use ibuprofen as needed. ROS ROS ED Constitutional Constitutional ED: Denies chills or fever(s) Eyes Eyes: Denies change in vision ENT ENT ED: Denies sore throat Cardiovascular Cardiovascular: Denies chest pain Respiratory/Chest Respiratory/Chest: Denies cough or dyspnea Gastrointestinal Gastrointestinal: Denies abdominal pain, diarrhea, nausea or vomiting Genitourinary Genitourinary ED: Denies dysuria Musculoskeletal Musculoskeletal: Reports other Details: Left forearm pain Integumentary Reports other Details: Left forearm wound Neurologic Neurologic: Denies headache(s), paresthesias or weakness Psychiatric Psychiatric: Reports anxiety and depression Hematologic/Lymphatic Hematologic/Lymphatic: Denies easy bleeding or easy bruising EXAM Physical Exam Const Vital Signs: 07/20/24 21:43 Temperature 98.1 F Temperature Source Oral Pulse Rate 92 Respiratory Rate 18 Blood Pressure 93/67 Blood Pressure Mean 75 Pulse Ox 100 Oxygen Delivery Method Room Air Positive well nourished and well developed General Appearance ED: well developed HEENT HEENT Narrative: Normocephalic atraumatic Eyes PERRL and EOMs intact bilaterally Neck full ROM and supple Resp normal respiratory effort and clear to auscultation bilaterally Cardio regular rate and regular rhythm Extremity Extremity Narrative: Left upper extremity is neurovascularly intact; AIN/PIN are intact and normal. Patient has a postsurgical wound to the distal third of the left forearm that is clean dry and intact without secondary findings to suggest infection. Compartments are soft and compressible going against compartment syndrome No asymmetric or unilateral swelling or erythema to suggest DVT Neuro oriented x3, CN's II-XII intact bilaterally, moves all extremities, no focal motor deficits and no sensory deficits noted Sensorium / Orientation: alert Motor Exam: strength 5/5 throughout Psych mental status grossly normal Skin no rashes or lesions noted Skin Narrative: Postoperative wound to the left forearm as documented above without signs of infection MDM MDM MDM Narrative Medical decision making narrative: Patient arrived to ER with stable vitals and reported postoperative pain after having a cyst with foreign object removed from her left forearm yesterday. Differential diagnosis is for postoperative pain versus postoperative infection versus compartment syndrome versus upper extremity DVT. Exam does not show erythema or warmth there is no streaking this goes against secondary infection. There is no unilateral swelling to suggest DVT and for patient to develop this within 24 hours of surgery is rare. On exam compartments are soft and compressible going against compartment syndrome. The patient has a low pain threshold that she admits to and states she needs to take Percocet daily to help with pain control but has recently run out of this medication and it is too early to refill. Therefore I do believe this is simply postoperative pain exacerbated by the fact she does not have her Percocet and therefore should be given a IM shot of Dilaudid at this time to help with symptom improvement throughout the night and is otherwise safe for discharge History & Record Review Discussion w/independent historian: Patient Discharge Plan Triage Chief Complaint: Upper Extremity Injury ED Provider: Cesar Meneses Dx/Rx/DC Orders Clinical Impression: Post-operative pain, Anxiety and depression, Chronic pain Instructions: ED Post Op Wound Check, Pain Prescriptions: No Action trazodone 100 MG tablet 100 mg PO QHS (DME) BreatheRite MDI Spacer Spacer MISCELLANEOUS X1 meloxicam 15 mg tablet 15 mg PO DAILY albuterol sulfate 90 mcg/actuation HFA aerosol inhaler 2 puff inhalation Q4H PRN PRN (Reason: wheezing) cephalexin 500 mg capsule 500 mg PO BID 7 Days Qty: 14 0RF lidocaine 5 % adhesive patch,medicated 1 patch topical Q24H Rx Instructions: WEAR PATCH FOR 12 HOURS AND THEN REMOVE FOR 12 HOURS BEFORE APPLYING A NEW ONE tizanidine 4 mg tablet 4 mg PO Q6H PRN PRN (Reason: muscle relaxation) Primary Care Provider: Tamika Mario Referrals: Tamika Mario MD [Primary Care Provider] - Activity Restrictions/Additional Instructions: Your wound is healing appropriately without signs of infection or blood clot. Continue your home medications as directed by your doctor and return to the ER should you have any further concerns Print Language: Slovenian Disposition Disposition: Home, Self Care
[2024-07-20 22:10] VITALS: BP 113/80; PULSE 97; RESP 18; TEMP 36.7; O2SAT 98
[2024-07-20] MEDS: Ondansetron ODT 4 MG Tablet PO (22:17)
[2024-07-20] MEDS: HYDROmorphone 1 MG/ML Syringe 2 MG IM (22:17)
== END 2024-07-20 22:42 | disposition home or self-care (01) ==
PROVIDERS: Emergency Provider Emergency Medicine; PCP Internal Medicine; Visit Provider Emergency Medicine
DX: G89.18 Other acute postprocedural pain (principal); F41.9 Anxiety disorder, unspecified; F32.A Depression, unspecified; G89.29 Other chronic pain; F17.210 Nicotine dependence, cigarettes, uncomplicated
CPT/HCPCS: 96372; 99282

== ENCOUNTER 2024-08-26 19:25 | Emergency (ER) | payer MEDICAID, SELFPAY ==
[2024-08-26 19:25] VITALS: BP 120/88; PULSE 103; RESP 17; TEMP 36.8; O2SAT 98; BMI 20.7
--- NOTE | 2024-08-26 19:35 | CT_ITS ---
PROCEDURE: ABDOMEN/PELVIS W IV CONT ONLY REASON FOR EXAM: Abdominal pain TECHNIQUE: Abdomen and pelvis CT with intravenous contrast. COMPARISON: 02/27/2024. FINDINGS: Lung bases: Clear Liver: Diffuse fatty infiltration. Liver is enlarged Gallbladder: Unremarkable. Spleen: Unremarkable. Pancreas: Unremarkable. Adrenals: Unremarkable. Kidneys: Unremarkable. Bladder: Unremarkable. Reproductive Organs: Unremarkable. Bowel: Unremarkable. Appendix: Normal. Lymph nodes: No suspicious lymph node enlargement. Vasculature: Mild diffuse atherosclerotic calcifications are noted. Peritoneum / Retroperitoneum: No ascites. No free air. Bones: Unremarkable. CT/Abdomen/Pelvis W IV Cont ONLY IMPRESSION: 1. No acute or significant CT abnormality in the abdomen and pelvis 2. Hepatic steatosis and hepatomegaly One or more dose reduction techniques were used (e.g., Automated exposure contr ol, adjustment of the mA and/or kV according to patient size, use of iterative reconstruction technique). Reading Location: [facility]
[2024-08-26 19:44] LABS: Bacteria 0 SEEN /hpf (None Seen); Mucous, Urine 0 SEEN /hpf (<or=2+)
[2024-08-26 19:47] LABS: Color, Urine Yellow (Yellow); Glucose, Dipstick Normal (Normal); Ketone-Dipstick Negative (Negative); Leukocyte Esterase-Dipstick 25 /ul (Negative); Nitrite-Dipstick Negative (Negative); Occult Blood-Urine 25 /ul (Negative); Protein-Dipstick 30 mg/dl (Negative); Urine Clarity Sl. Cloudy (Clear); Urine Urobilinogen 1 mg/dl (Normal)
--- NOTE | 2024-08-26 19:49 | EX.ED.DYSGE1 ---
HPI <LISSA El - Last Filed: 08/26/24 21:16> History of Present Illness Chief Complaint: Abd Pain Narrative Narrative: Patient is a 44-year-old female with history of anxiety, depression who presents to the emergency department for abdominal pain, nausea vomiting diarrhea, back pain. Pay states it started suddenly around 9 in the morning. She states she feels chills, significant abdominal cramping. She states she cannot stop pooping and vomiting. Patient denies any blood in her stool or vomit. Patient only states that she had a ovarian surgery on her abdomen. This was several years ago. Here for evaluation. PFS <LISSA El - Last Filed: 08/26/24 21:16> [facility] Medical History Marijuana use Right rotator cuff tear Wears partial dentures Hepatitis Smoker History of echocardiogram History of stress test Cardiology follow-up encounter History of CHF (congestive heart failure) Esophageal tear Anxiety Home Medications ?Medication ?Instructions ?Recorded ?Last Taken ?Type trazodone 100 mg tablet 100 mg PO QHS 01/03/17 07/18/24 History inhalational spacing device 10/09/23 Unknown History (BreatheRite MDI Spacer) meloxicam 15 mg tablet 15 mg PO DAILY 01/01/24 07/18/24 History albuterol sulfate 90 mcg/actuation 2 puff inhalation Q4H PRN PRN 01/06/24 07/18/24 History aerosol inhaler wheezing lidocaine 5 % topical patch 1 patch topical Q24H 02/27/24 Unknown History tizanidine 4 mg tablet 4 mg PO Q6H PRN PRN muscle 02/27/24 Unknown History relaxation dicyclomine 20 mg tablet 20 mg PO TID #20 tabs 08/26/24 Unknown Rx ondansetron 4 mg disintegrating 4 mg PO Q8H PRN PRN Nausea #10 tabs 08/26/24 Unknown Rx tablet Allergy/AdvReac Type Severity Reaction Status Date / Time escitalopram (From Lexapro) Allergy Other Verified 08/26/24 19:25 lamotrigine (From Lamictal) Allergy Hives Verified 08/26/24 19:25 nitrofurantoin (From Allergy Unknown Verified 08/26/24 19:25 Macrobid) nitrofurantoin Allergy Unknown Verified 08/26/24 19:25 macrocrystalline (From Macrobid) codeine AdvReac Nausea Verified 08/26/24 19:25 Family History Mother Anxiety Hypertension High cholesterol Diabetes Depression Father Hypertension Surgical History History of tubal ligation History of lumpectomy of right breast History of repair of rotator cuff Hx of surgical procedure Hx of removal of ovary History of tonsillectomy and adenoidectomy Social History household members: family housing: house Smoking Status: Current every day smoker tobacco type: cigarettes substance use type: marijuana additional social history: pt does not vape, does not take aspirin, pt does report using marijuana daily,does uses edibles on occassion, does use ibuprofen as needed. ROS <LISSA El - Last Filed: 08/26/24 21:16> ROS ED ROS Narrative Constitutional: Negative for fever, weight loss, weakness. Positive for chills Eyes: Negative for vision loss, vision change, double vision ENT: Negative for any sore throat, ear pain, congestion Cardiovascular: Negative for any chest pain, tightness, palpitations Respiratory: Negative for any cough, sputum production, hemoptysis, dyspnea, dyspnea on exertion, orthopnea Gastrointestinal: Negative for any constipation, blood in stool, blood in vomit. Positive for abdominal pain she describes as severe cramping, nausea and vomiting, diarrhea : Negative for any urinary frequency, dysuria, retention, blood in urine Muscle skeletal: Negative for any neck pain, back pain Neurological: Negative for any headache, syncope, dizziness Skin: Negative for any rashes, itching, abrasions, lacerations Psychiatric: Negative for any depression, anxiety, stress, suicidal ideation, homicidal ideation Hematologic: Negative for any excessive bruising, easy bleeding EXAM <LISSA El - Last Filed: 08/26/24 21:16> Physical Exam Narrative Exam Narrative: Vital signs reviewed. Patient does appear to be in mild distress secondary to abdominal pain. She did have some dry heaving on my initial examination. HEET: Head normocephalic atraumatic, TMs clear bilaterally. Posterior pharynx is clear, dry mucous membranes. Nares clear bilaterally. Neck: Supple with no lymphadenopathy or tenderness. No signs of meningismus. Cardiac: Regular rate and rhythm no murmurs gallops or rubs, equal peripheral pulses bilaterally. Respiratory: Lungs clear to auscultation bilaterally. No chest tenderness. Abdomen: Soft, nondistended. No abdominal bruit or pulsatile masses. No hepatosplenomegaly. Abdominal tenderness worse on the left lower abdomen. Extremities: No peripheral edema, no signs of gross trauma or deformity. Active full range of motion of all extremities. Neuro: Cranial nerves II through XII intact, no focal neurological deficits. Skin: Clean dry and intact with no rash, purpura, petechiae, vesicles or pustules. Backs/flank: No CVA tenderness, no midline spinal tenderness, no deformity. Psych: Normal mood and affect. No SI, HI or acute psychosis. Const Vital Signs: 08/26/24 19:25 08/26/24 19:25 Temperature 98.3 F 98.3 F Temperature Source Temporal Oral Pulse Rate 103 H 103 H Respiratory Rate 17 17 Blood Pressure 120/88 H 120/88 H Blood Pressure Mean 98 98 Pulse Ox 98 98 Oxygen Delivery Method Room Air Room Air <Xavi Biggs MD - Last Filed: 08/26/24 21:22> Physical Exam Const Vital Signs: 08/26/24 19:25 08/26/24 19:25 Temperature 98.3 F 98.3 F Temperature Source Temporal Oral Pulse Rate 103 H 103 H Respiratory Rate 17 17 Blood Pressure 120/88 H 120/88 H Blood Pressure Mean 98 98 Pulse Ox 98 98 Oxygen Delivery Method Room Air Room Air [facility] <LISSA El - Last Filed: 08/26/24 21:16> [facility] Lab Data Labs: Laboratory Results - last 24 hr 08/26/24 08/26/24 19:40 19:43 WBC 21.5 H RBC 5.38 Hgb 17.4 H Hct 50.4 H MCV 93.7 MCH 32.3 H MCHC 34.5 RDW Std Deviation 43.9 RDW Coeff of Denys 12.7 Plt Count 414 MPV 9.4 Immature Gran % (Auto) 0.400 Neut % (Auto) 90.5 H Lymph % (Auto) 5.2 L [place] % (Auto) 3.3 Eos % (Auto) 0.3 Baso % (Auto) 0.3 Absolute Neuts (auto) 19.4 H Absolute Lymphs (auto) 1.12 Nucleated RBC % 0 Sodium 145 Potassium 3.9 Chloride Direct 104 Carbon Dioxide 25.8 Anion Gap 15 BUN 9 Creatinine 0.93 Estim Creat Clear Calc 70.14 Est GFR (MDRD) Non-Af 79 BUN/Creatinine Ratio 9.2 L Glucose 129 H Calcium 9.4 Total Bilirubin 0.50 AST 25 ALT 11 Alkaline Phosphatase 83 Total Protein 8.3 Albumin 5.0 Globulin 3.3 Albumin/Globulin Ratio 1.5 Lipase 79 H Serum , Qual NEGATIVE Urine Color Yellow Urine Clarity Sl. Cloudy Urine pH 6.0 Ur Specific Mckenzie 1.020 Urine Protein 30 H Urine Glucose (UA) Normal Urine Ketones Negative Urine Occult Blood 25 H Urine Nitrite Negative Urine Bilirubin 1 H Urine Urobilinogen 1 H Ur Leukocyte Esterase 25 H Urine RBC 0-5 SEEN Urine WBC 0-5 SEEN Ur Squamous Epith Cells 0-5 SEEN Amorphous Sediment 1+ URATE Urine Bacteria 0 SEEN Urine Mucus 0 SEEN Radiography Diagnostic Testing: Clinical Impression(s) from Imaging Studies Abdomen/Pelvis CT 08/26/24 19:35 IMPRESSION: 1. No acute or significant CT abnormality in the abdomen and pelvis 2. Hepatic steatosis and hepatomegaly One or more dose reduction techniques were used (e.g., Automated exposure control, adjustment of the mA and/or kV according to patient size, use of iterative reconstruction technique). Reading Location: [facility] Treatment and Re-Evaluation :: Differential diagnosis includes however is not limited to: COVID-19, influenza, RSV, acute appendicitis, diverticulitis, bowel perforation, cannabinoid hyperemesis Patient does appear to be in mild amount of discomfort, rolling around the bed. Patient's vital signs are stable. Patient does look nontoxic. Present to the [facility] for abdominal pain, nausea vomiting diarrhea. Patient will receive a CT scan of the abdomen pelvis IV contrast. Laboratory values will be ordered including urinalysis, IV fluids Zofran morphine and IM Bentyl will be ordered. All radiologic examinations were read, reviewed by the emergency department attending. From these reads, a plan of care will be put in place. Patient be reevaluated. On reevaluation, patient was improved. Patient was given 1 mg IV Ativan. CBC does shows a leukocytosis with a white blood count 21.5, patient has had instances in the emergency department when she was at high with nausea and vomiting. Glucose 129, lipase only elevated 79, patient is not . Creatinine is within normal limits, electrolytes are normal. CT scan of the abdomen pelvis shows no acute or significant CT abnormality of the abdomen and pelvis. Urinalysis was negative for infection. On reevaluation, the patient was feeling much improved. She does feel I can go home. She was currently drinking water and my repeat evaluation. At this time, patient be discharged home on Zofran as well as Bentyl. She will advance her diet as tolerated. All questions answered, stable for discharge. <Xavi Biggs MD - Last Filed: 08/26/24 21:22> [facility] MDM Narrative Medical decision making narrative: Dr. Biggs: I have personally performed a face to face assessment of the patient and have reviewed the DESIREE Note. I performed a substantive portion of the visit including all aspects of the following. My samuels findings include: History is nausea, vomiting, and diarrhea today along with crampy diffuse abdominal pain. Exam is afebrile. Vital signs noted. Nontoxic-appearing. Cardiovascular examination reveals mild tachycardia. Lungs clear to auscultation bilaterally. The abdomen is soft with diffuse tenderness to palpation but no guarding or rebound. Positive bowel sounds. Neurological examination is nonfocal and nonlateralizing. Psychiatric examination does show mild anxiety. Medical Decision Making: Differential diagnosis includes but not limited to pancreatitis versus bowel obstruction versus gastroenteritis versus colitis versus diverticulitis. I reviewed her laboratory work and she does have leukocytosis of 21.5, but in review of prior laboratories has been as high as well in the past with nausea and vomiting. Lipase is slightly elevated at 79 with upper limit of normal being 75 which I think is nonspecific. I do not think that she has a pancreatitis. Serum negative which rules out nausea and vomiting with . Patient did smoke marijuana today at noon after her symptoms started at 9 AM. I reviewed the radiology report of the CT of the abdomen and pelvis and there is no acute process. She does not have ketones in her urine so I do not suspect any dehydration. She was given IV fluids and analgesia. She was also given Ativan and medications for her abdominal cramping. I feel she can be discharged to follow-up. Return instructions to the emergency department were reviewed. Disposition is discharged home in stable condition. Other additions or changes: [None] History & Record Review Discussion w/independent historian: Patient Additional record(s) reviewed:: Prior labs Lab Data Attestation: I reviewed the patient's lab results. Labs: Laboratory Results - last 24 hr 08/26/24 08/26/24 19:40 19:43 WBC 21.5 H RBC 5.38 Hgb 17.4 H Hct 50.4 H MCV 93.7 MCH 32.3 H MCHC 34.5 RDW Std Deviation 43.9 RDW Coeff of Denys 12.7 Plt Count 414 MPV 9.4 Immature Gran % (Auto) 0.400 Neut % (Auto) 90.5 H Lymph % (Auto) 5.2 L [place] % (Auto) 3.3 Eos % (Auto) 0.3 Baso % (Auto) 0.3 Absolute Neuts (auto) 19.4 H Absolute Lymphs (auto) 1.12 Nucleated RBC % 0 Sodium 145 Potassium 3.9 Chloride Direct 104 Carbon Dioxide 25.8 Anion Gap 15 BUN 9 Creatinine 0.93 Estim Creat Clear Calc 70.14 Est GFR (MDRD) Non-Af 79 BUN/Creatinine Ratio 9.2 L Glucose 129 H Calcium 9.4 Total Bilirubin 0.50 AST 25 ALT 11 Alkaline Phosphatase 83 Total Protein 8.3 Albumin 5.0 Globulin 3.3 Albumin/Globulin Ratio 1.5 Lipase 79 H Serum , Qual NEGATIVE Urine Color Yellow Urine Clarity Sl. Cloudy Urine pH 6.0 Ur Specific Mckenzie 1.020 Urine Protein 30 H Urine Glucose (UA) Normal Urine Ketones Negative Urine Occult Blood 25 H Urine Nitrite Negative Urine Bilirubin 1 H Urine Urobilinogen 1 H Ur Leukocyte Esterase 25 H Urine RBC 0-5 SEEN Urine WBC 0-5 SEEN Ur Squamous Epith Cells 0-5 SEEN Amorphous Sediment 1+ URATE Urine Bacteria 0 SEEN Urine Mucus 0 SEEN Radiography Diagnostic Testing: Clinical Impression(s) from Imaging Studies Abdomen/Pelvis CT 08/26/24 19:35 IMPRESSION: 1. No acute or significant CT abnormality in the abdomen and pelvis 2. Hepatic steatosis and hepatomegaly One or more dose reduction techniques were used (e.g., Automated exposure control, adjustment of the mA and/or kV according to patient size, use of iterative reconstruction technique). Reading [facility] Discharge Plan Triage Chief Complaint: Abd Pain ED Midlevel Provider: Navi Cruz ED Provider: Xavi Biggs Dx/Rx/DC Orders Clinical Impression: Nausea, vomiting, and diarrhea, Abdominal pain, Elevated lipase Instructions: Abdominal Pain, ED Vomiting (Adult) Prescriptions: New ondansetron 4 mg tablet,disintegrating 4 mg PO Q8H PRN PRN (Reason: Nausea) Qty: 10 0RF dicyclomine 20 mg tablet 20 mg PO TID Qty: 20 0RF No Action trazodone 100 MG tablet 100 mg PO QHS (DME) BreatheRite MDI Spacer Spacer MISCELLANEOUS X1 meloxicam 15 mg tablet 15 mg PO DAILY albuterol sulfate 90 mcg/actuation HFA aerosol inhaler 2 puff inhalation Q4H PRN PRN (Reason: wheezing) lidocaine 5 % adhesive patch,medicated 1 patch topical Q24H Rx Instructions: WEAR PATCH FOR 12 HOURS AND THEN REMOVE FOR 12 HOURS BEFORE APPLYING A NEW ONE tizanidine 4 mg tablet 4 mg PO Q6H PRN PRN (Reason: muscle relaxation) Primary Care Provider: Tamika Mario Referrals: Tamika Mario MD [Primary Care Provider] - Print Language: [place]anian Disposition Disposition: Home, Self Care
[2024-08-26 19:51] LABS: Urine Bilirubin Dipstick 1 mg/dL (Negative)
[2024-08-26 19:52] LABS: Absolute Lymphocyte Count 1.12 X10^3/uL (0.83-4.51); Absolute Neutrophil Count 19.4 X10^3/uL (2.0-7.7); Basophil# 0.07 X10^3/uL; Basophil% 0.3 % (0-1); Eosinophil# 0.06 X10^3/uL; Eosinophils% 0.3 % (0-5); Hematocrit 50.4 % (37-47); Hemoglobin 17.4 g/dL (12.0-15.0); Lymphocyte # 1.12 X10^3/ul (0.83-4.51); Lymphocyte % 5.2 % (19-41); Mean Corp Hgb Conc 34.5 g/dL (32-36); Mean Corpuscular Hgb 32.3 pg (27.0-32.0); Mean Corpuscular Volume 93.7 fL (81-99); Mean Platelet Vol. 9.4 fl (6.2-12.0); Monocyte# 0.71 X10^3/uL; Monocyte% 3.3 % (0-10); NRBC Flagged by Analyzer 0 % (0-5); Neutrophil # 19.44 X10^3/uL (2.7-7.7); Neutrophil % 90.5 % (47-70); Platelet Count 414 K/mm3 (150-450); RBC Distribution Width CV 12.7 % (11.6-14.6); RBC Distribution Width SD 43.9 fl (35.1-43.9); Red Blood Count 5.38 M/mm3 (4.2-5.4); White Blood Count 21.5 K/mm3 (4.4-11.0)
[2024-08-26 19:57] LABS: Amorphous Sediment 1+ URATE; Red Blood Cells-Urine 0-5 SEEN /hpf (0-5); Squamous Epithelial Cells - UA 0-5 SEEN /hpf (5-10); White Blood Cells 0-5 SEEN /hpf (0-5)
[2024-08-26] MEDS: Dicyclomine 20 MG/2 ML Vial IM (20:00)
[2024-08-26] MEDS: Morphine 4 MG/ML Syringe IV (20:00)
[2024-08-26] MEDS: Ondansetron 4 MG/2 ML Vial IV (20:00)
[2024-08-26] MEDS: 0.9% Normal Saline (1000mL) 1,000 ML 999 ML IV (20:13)
[2024-08-26 20:14] LABS: Internal QC Validated? YES +Cl - CLEAR BKGD; Pregnancy, Serum, hCG Quali. NEGATIVE Negative
[2024-08-26 20:21] LABS: Lipase 79 U/L (13-75)
[2024-08-26 20:25] LABS: ALB/GLOB Ratio 1.5 RATIO (0.9-2.4); AST(SGOT) 25 U/L (<=31); Alanine Aminotransfer ALT/SGPT 11 U/L (<=34); Alkaline Phosphatase 83 U/L (35-104); Anion Gap 15 (5-15); BUN 9 mg/dL (4-19); BUN/Creat Ratio 9.2 RATIO (10-20); Calcium 9.4 mg/dL (7.6-11.0); Carbon Dioxide 25.8 mmol/L (22.0-29.0); Chloride 104 mmol/L (96-108); Creatinine, Serum 0.93 mg/dL (0.70-1.20); EST Glomerular Filtration Rate 79 (>60); Estimated Creatinine Clearance 70.14 ml/min (50-250); Globulin 3.3 g/dL (2.2-4.2); Glucose 129 mg/dL (70-99); Potassium 3.9 mmol/L (3.3-5.1); Protein, Total 8.3 g/dL (5.9-8.4); Sodium Level 145 mmol/L (133-145)
[2024-08-26] MEDS: Lorazepam 2 MG/ML WCH Syringe 1 MG IV (20:48)
[2024-08-26 21:24] VITALS: BP 120/78; PULSE 89; RESP 16; TEMP 36.9; O2SAT 99
== END 2024-08-26 21:25 | disposition home or self-care (01) ==
PROVIDERS: Nurse Practitioner; Emergency Provider Emergency Medicine; PCP Internal Medicine; Visit Provider Emergency Medicine
DX: R10.9 Unspecified abdominal pain (principal); R11.2 Nausea with vomiting, unspecified; R19.7 Diarrhea, unspecified; R74.8 Abnormal levels of other serum enzymes; F12.90 Cannabis use, unspecified, uncomplicated; F17.210 Nicotine dependence, cigarettes, uncomplicated
CPT/HCPCS: 74177; 80053; 81001; 83690; 84703; 85025; 87631; 96361; 96372; 96374; 96375; 99283; Q9967; A4216; J2405

== ENCOUNTER 2024-08-28 00:23 | Emergency (ER) | payer MEDICAID, SELFPAY ==
[2024-08-28 00:24] VITALS: BP 100/63; PULSE 59; RESP 18; TEMP 36.4; O2SAT 98; BMI 21.4
[2024-08-28 00:27] VITALS: BP 100/63; PULSE 59; RESP 18; TEMP 36.4; O2SAT 98
[2024-08-28 01:26] LABS: Absolute Lymphocyte Count 2.94 X10^3/uL (0.83-4.51); Absolute Neutrophil Count 5.4 X10^3/uL (2.0-7.7); Basophil# 0.05 X10^3/uL; Basophil% 0.5 % (0-1); Eosinophil# 0.19 X10^3/uL; Eosinophils% 2.1 % (0-5); Hematocrit 37.1 % (37-47); Hemoglobin 12.9 g/dL (12.0-15.0); Lymphocyte # 2.94 X10^3/ul (0.83-4.51); Lymphocyte % 31.8 % (19-41); Mean Corp Hgb Conc 34.8 g/dL (32-36); Mean Corpuscular Hgb 32.3 pg (27.0-32.0); Mean Platelet Vol. 9.4 fl (6.2-12.0); Monocyte% 6.5 % (0-10); NRBC Flagged by Analyzer 0 % (0-5); Neutrophil # 5.43 X10^3/uL (2.7-7.7); Neutrophil % 58.7 % (47-70); Platelet Count 246 K/mm3 (150-450); RBC Distribution Width CV 12.6 % (11.6-14.6); Red Blood Count 3.99 M/mm3 (4.2-5.4); White Blood Count 9.3 K/mm3 (4.4-11.0)
[2024-08-28] MEDS: Morphine 4 MG/ML Syringe IV (01:26)
[2024-08-28] MEDS: 0.9% Normal Saline (1000mL) 1,000 ML 999 ML IV (01:26)
[2024-08-28 01:27] VITALS: BP 94/63; PULSE 56; RESP 14; TEMP 36.6; O2SAT 96
--- NOTE | 2024-08-28 01:46 | EX.ED.DYSGE1 ---
HPI History of Present Illness Chief Complaint: Weakness Informant: patient Narrative Narrative: Patient is a 44-year-old female with history of anxiety, depression, cirrhosis of the liver and recent GI illness presenting with worsening symptoms. Patient was actually seen in our ER yesterday for abdominal pain, nausea vomiting diarrhea. Show workup including CBC, CMP, lipase and CT abdomen pelvis. Patient states by time she left the ER she was feeling better. She was given nausea medicine which has helped without symptoms and she is continue to have diarrhea. She states she is feeling worse now. She is having pain in her right side of her stomach and into her back. She has a headache. She states her legs feel so weak that she cannot stand up. She was seen in her kitchen and just kept hitting the back of her head on the cabinets and could not stop. She states her symptoms all started at 9 AM yesterday. Her daughter had the same symptoms. She is now having tingling in her hands and her feet. No fevers reported. No recent antibiotics. No history of C. difficile. Has a history of one of her ovaries being removed. No other abdominal history. No other complaints or concerns reported at this time. Patient does use THC and smokes tobacco products but denies any alcohol or other drug use. [facility] Medical History Marijuana use Right rotator cuff tear Wears partial dentures Hepatitis Smoker History of echocardiogram History of stress test Cardiology follow-up encounter History of CHF (congestive heart failure) Esophageal tear Anxiety Home Medications ?Medication ?Instructions ?Recorded ?Last Taken ?Type trazodone 100 mg tablet 100 mg PO QHS 01/03/17 07/18/24 History inhalational spacing device 10/09/23 Unknown History (BreatheRite MDI Spacer) meloxicam 15 mg tablet 15 mg PO DAILY 01/01/24 07/18/24 History albuterol sulfate 90 mcg/actuation 2 puff inhalation Q4H PRN PRN 01/06/24 07/18/24 History aerosol inhaler wheezing lidocaine 5 % topical patch 1 patch topical Q24H 02/27/24 Unknown History tizanidine 4 mg tablet 4 mg PO Q6H PRN PRN muscle 02/27/24 Unknown History relaxation dicyclomine 20 mg tablet 20 mg PO TID #20 tabs 08/26/24 Unknown Rx ondansetron 4 mg disintegrating 4 mg PO Q8H PRN PRN Nausea #10 tabs 08/26/24 Unknown Rx tablet famotidine 20 mg tablet (Pepcid) 20 mg PO BID #14 tabs 08/28/24 Unknown Rx Allergy/AdvReac Type Severity Reaction Status Date / Time escitalopram (From Lexapro) Allergy Other Verified 08/28/24 00:24 lamotrigine (From Lamictal) Allergy Hives Verified 08/28/24 00:24 nitrofurantoin (From Allergy Unknown Verified 08/28/24 00:24 Macrobid) nitrofurantoin Allergy Unknown Verified 08/28/24 00:24 macrocrystalline (From Macrobid) codeine AdvReac Nausea Verified 08/28/24 00:24 Family History Mother Anxiety Hypertension High cholesterol Diabetes Depression Father Hypertension Surgical History History of tubal ligation History of lumpectomy of right breast History of repair of rotator cuff Hx of surgical procedure Hx of removal of ovary History of tonsillectomy and adenoidectomy Social History household members: family housing: house Smoking Status: Current every day smoker tobacco type: cigarettes substance use type: marijuana additional social history: pt does not vape, does not take aspirin, pt does report using marijuana daily,does uses edibles on occassion, does use ibuprofen as needed. ROS ROS ED Constitutional Constitutional ED: Denies fever(s) Eyes Eyes: Denies change in vision ENT ENT ED: Denies sore throat Cardiovascular Cardiovascular: Denies palpitations Respiratory/Chest Respiratory/Chest: Denies cough or dyspnea Gastrointestinal Gastrointestinal: Reports abdominal pain, diarrhea, nausea and vomiting Musculoskeletal Musculoskeletal: Denies arthralgias or myalgias Neurologic Neurologic: Reports headache(s), paresthesias and weakness Psychiatric Psychiatric: Reports anxiety Hematologic/Lymphatic Hematologic/Lymphatic: Denies easy bleeding or easy bruising EXAM Physical Exam Const Vital Signs: 08/28/24 00:23 08/28/24 00:24 08/28/24 00:27 Temperature 97.5 F L 97.5 F L Temperature Source Oral Oral Pulse Rate 59 L 59 L Respiratory Rate 18 18 Respiratory Effort Normal Non-Labored Respiratory Pattern Normal Blood Pressure 100/63 100/63 Blood Pressure Mean 75 75 Pulse Ox 98 98 Oxygen Delivery Method Room Air Room Air 08/28/24 01:27 08/28/24 02:00 08/28/24 03:00 Temperature 98 F 98.1 F 98.0 F Temperature Source Oral Oral Oral Pulse Rate 56 L 73 52 L Respiratory Rate 14 18 18 Respiratory Effort Respiratory Pattern Blood Pressure 94/63 90/60 99/68 Blood Pressure Mean 73 70 78 Pulse Ox 96 97 96 Oxygen Delivery Method Room Air Room Air Room Air 08/28/24 03:03 Temperature 98.0 F Temperature Source Pulse Rate 52 L Respiratory Rate 18 Respiratory Effort Respiratory Pattern Blood Pressure 99/68 Blood Pressure Mean 78 Pulse Ox 96 Oxygen Delivery Method Positive well nourished and well developed General Appearance ED: well developed and NAD; Negative for pallor HEENT Reports TM's clear and dry mucous membranes Tympanic Membrane ED: Yes TM's clear Mouth ED: Yes dry mucous membranes Mouth: dry mucous membranes Eyes PERRL General Eye ED: Negative for pale conjunctiva or scleral icterus Neck supple and no JVD Chest Wall inspection of chest normal and palpation of chest normal Resp normal respiratory effort and clear to auscultation bilaterally Cardio regular rate and regular rhythm GI non-distended Auscultation: normoactive bowel sounds Palpation: soft and tender epigastric and RUQ; Negative for guarding Back/Spine no CVA tenderness Neuro oriented x3 Sensorium / Orientation: alert Motor Exam: general weakness Psych mental status grossly normal Mood & Affect: anxious Skin no rashes or lesions noted General Skin Exam: Negative for jaundice or pallor MDM MDM MDM Narrative Medical decision making narrative: Patient evaluated for generalized weakness in the setting of diarrhea, nausea and prior vomiting. Was seen and evaluated little over 24 hours ago in her ER for the same complaint. At that time she had workup clued CT abdomen pelvis which not show any acute process. She did leukocytosis this time. Notes nausea, improved with nausea medicine she was discharged home with. She is continued have diarrhea. Her complaint of tingling of her hands and feet sounds more like carpopedal spasm. Will recheck a CMP for electrolyte abnormalities. Does have a history of cirrhosis of the liver stool obtain ammonia as well as liver panel. Will check lipase for concern of pancreatitis. Will recheck CBC for white blood cell count. Patient is given IV fluids, 1 dose of morphine for pain in the emergency room. Patient to COVID flu and RSV swab on her last visit which was negative so do not think this requires repeating. Lab work shows borderline bradycardia and normal blood pressure it is on the low side but appears to be more baseline for the patient. Patient reevaluated. She states she does not feel all the way better but is feeling improved. She is not requesting to be discharged home. We do not have a urine back yet. Patient does not want further testing or evaluation at this time as he should just follow-up with her primary care doctor. Counseled that the exact cause of her presentation however her lab work overall is improving. She no longer has a leukocytosis or left shift. Lipase is downtrending. Kidney function is normal. Lactate is normal. Ammonia level is normal. She does have mild hypokalemia potassium 3.1 is given oral potassium replacement the emergency room. Patient is encouraged multiple times that should she change her mind and like to stay since she is still not feeling well or her symptoms worsen that she should return to the emergency room for further evaluation. Patient verbalized agreement understand this plan. Discharged home in stable condition. Given that patient had a CT of her abdomen and pelvis less than 48 hours ago with normal labs at this time I do not think she requires any repeat imaging. On repeat abdominal exam she has no further abdominal tenderness. I will start her on antacid therapy given her vomiting that she could have some associated gastritis or even peptic ulcer disease. Lab Data Attestation: I reviewed the patient's lab results. Labs: Laboratory Results - last 24 hr 08/28/24 01:09 WBC 9.3 RBC 3.99 L Hgb 12.9 Hct 37.1 MCV 93.0 MCH 32.3 H MCHC 34.8 RDW Std Deviation 43.0 RDW Coeff of Denys 12.6 Plt Count 246 MPV 9.4 Immature Gran % (Auto) 0.400 Neut % (Auto) 58.7 Lymph % (Auto) 31.8 [place] % (Auto) 6.5 Eos % (Auto) 2.1 Baso % (Auto) 0.5 Absolute Neuts (auto) 5.4 Absolute Lymphs (auto) 2.94 Nucleated RBC % 0 Sodium 137 Potassium 3.1 L Chloride 102 Carbon Dioxide 23.9 Anion Gap 11 BUN 7 Creatinine 0.71 Estim Creat Clear Calc 89.13 Est GFR (MDRD) Non-Af 109 BUN/Creatinine Ratio 9.6 L Glucose 104 H Lactic Acid 1.1 Calcium 8.2 Total Bilirubin < 0.15 Direct Bilirubin < 0.08 AST 26 ALT 10 Alkaline Phosphatase 57 Ammonia 32.2 Total Protein 6.0 Albumin 3.5 Globulin 2.6 Lipase 31 Discharge Plan Triage Chief Complaint: Weakness ED Provider: Reny Painter Dx/Rx/DC Orders Clinical Impression: Abdominal pain, Nausea, vomiting, and diarrhea, Acute hypokalemia, Generalized weakness Instructions: ED Hypokalemia, ED Weakness (Uncertain Cause), ED Vomit Diarrhea Nonspec Adult Prescriptions: New famotidine [Pepcid] 20 mg tablet 20 mg PO BID Qty: 14 0RF No Action trazodone 100 MG tablet 100 mg PO QHS (DME) BreatheRite MDI Spacer Spacer MISCELLANEOUS X1 meloxicam 15 mg tablet 15 mg PO DAILY albuterol sulfate 90 mcg/actuation HFA aerosol inhaler 2 puff inhalation Q4H PRN PRN (Reason: wheezing) lidocaine 5 % adhesive patch,medicated 1 patch topical Q24H Rx Instructions: WEAR PATCH FOR 12 HOURS AND THEN REMOVE FOR 12 HOURS BEFORE APPLYING A NEW ONE tizanidine 4 mg tablet 4 mg PO Q6H PRN PRN (Reason: muscle relaxation) ondansetron 4 mg tablet,disintegrating 4 mg PO Q8H PRN PRN (Reason: Nausea) Qty: 10 0RF dicyclomine 20 mg tablet 20 mg PO TID Qty: 20 0RF Primary Care Provider: Tamika Mario Referrals: Tamika Mario MD [Primary Care Provider] - Activity Restrictions/Additional Instructions: Your labs overall have improved today and were reassuring. Your potassium was mildly low. We were not able to obtain a urine specimen and complete the workup at this time. Per our discussion please follow-up with your primary care doctor. Please return if your symptoms worsen or you have further concerns. Make sure drinking plenty of fluids that have electrolytes in them. Please try to add food and fluid that have potassium in them. Print Language: Japanese Disposition Disposition: Home, Self Care Discharge Date/Time: 08/28/24 03:14
[2024-08-28 02:00] VITALS: BP 90/60; PULSE 73; RESP 18; TEMP 36.7; O2SAT 97
[2024-08-28 02:06] LABS: Ammonia 32.2 umol/L (11-51); Lactic Acid 1.1 mmol/L (0.0-2.0); Lipase 31 U/L (13-75)
[2024-08-28 02:24] LABS: AST(SGOT) 26 U/L (<=31); Alanine Aminotransfer ALT/SGPT 10 U/L (<=34); Albumin, Serum 3.5 g/dL (3.5-5.0); Alkaline Phosphatase 57 U/L (35-104); Anion Gap 11 (5-15); BUN 7 mg/dL (4-19); BUN/Creat Ratio 9.6 RATIO (10-20); Bilirubin, Direct < 0.08 mg/dL (0.00-0.30); Calcium,Total 8.2 mg/dL (7.6-11.0); Carbon Dioxide 23.9 mmol/L (21.0-32.0); Chloride 102 mmol/L (98-108); Creatinine, Serum 0.71 mg/dL (0.70-1.20); EST Glomerular Filtration Rate 109 (>60); Estimated Creatinine Clearance 89.13 ml/min (50-250); Globulin 2.6 g/dL (2.2-4.2); Glucose 104 mg/dL (70-99); Potassium 3.1 mmol/L (3.3-5.1); Sodium Level 137 mmol/L (133-145); Total Bilirubin < 0.15 mg/dL (0.00-1.30)
--- NOTE | 2024-08-28 02:57 | ED.RN ---
0257: PT. REQUESTED TO ATTEMPT A URINE SAMPLE. RESPONSE HE NEEDS TO GO HOME. I AM NOT GOING PEE. PT. ASKED IF SHE WAS FEELING ANY BETTER. RESPONSE NO, I WILL JUST FOLLOW-UP W/ MY DOCTOR. PT. ASKED IF THERE WAS ANYONE ELSE TO GIVE HER A RIDE HOME. RESPONSE NO, JUST TAKE THIS IV OUT. PT DISCONNECTED FROM FLUIDS. IV REMAINED IN PLACE. PROVIDER NOTIFIED AT THIS TIME. 0258: PROVIDER AT BEDSIDE
[2024-08-28 03:00] VITALS: BP 99/68; PULSE 52; RESP 18; TEMP 36.7; O2SAT 96
[2024-08-28 03:03] VITALS: BP 99/68; PULSE 52; RESP 18; TEMP 36.7; O2SAT 96
[2024-08-28] MEDS: Potassium Chloride Oral Tablet 20 MEQ 40 MEQ PO (03:12)
== END 2024-08-28 03:14 | disposition home or self-care (01) ==
PROVIDERS: Emergency Provider Emergency Medicine; PCP Internal Medicine; Visit Provider Emergency Medicine
DX: R10.9 Unspecified abdominal pain (principal); R11.2 Nausea with vomiting, unspecified; R19.7 Diarrhea, unspecified; R53.1 Weakness; E87.6 Hypokalemia; F17.210 Nicotine dependence, cigarettes, uncomplicated
CPT/HCPCS: 80048; 80076; 82140; 83605; 83690; 85025; 96361; 96374; 99285; A4216

== ENCOUNTER 2024-10-17 10:56 | Emergency (ER) | payer MEDICAID, SELFPAY ==
[2024-10-17 10:57] VITALS: BP 130/68; PULSE 85; RESP 16; TEMP 36.5; O2SAT 97; BMI 21.6
--- NOTE | 2024-10-17 11:10 | EX.ED.DYSGE1 ---
HPI History of Present Illness Chief Complaint: Other, Pain/Inj Detail of Chief Complaint: Right shoulder pain Informant: patient Narrative Narrative: Patient presents with right shoulder pain that has been worse since about midnight when she ran out of her pain medication. Patient states that she had rotator cuff surgery 5 days ago at [facility]. She ran out of her Percocet that she was taking 2 tablets every 4 hours. She has been unable to get a hold of her surgeon this morning. She had prior rotator cuff surgery repair on her right arm about a year ago as well. Patient denies fevers or chills or sweats. Denies new injury. [facility] Medical History Marijuana use Right rotator cuff tear Wears partial dentures Hepatitis Smoker History of echocardiogram History of stress test Cardiology follow-up encounter History of CHF (congestive heart failure) Esophageal tear Anxiety Home Medications ?Medication ?Instructions ?Recorded ?Last Taken ?Type trazodone 100 mg tablet 100 mg PO QHS 01/03/17 07/18/24 History inhalational spacing device 10/09/23 Unknown History (BreatheRite MDI Spacer) meloxicam 15 mg tablet 15 mg PO DAILY 01/01/24 07/18/24 History albuterol sulfate 90 mcg/actuation 2 puff inhalation Q4H PRN PRN 01/06/24 07/18/24 History aerosol inhaler wheezing lidocaine 5 % topical patch 1 patch topical Q24H 02/27/24 Unknown History tizanidine 4 mg tablet 4 mg PO Q6H PRN PRN muscle 02/27/24 Unknown History relaxation dicyclomine 20 mg tablet 20 mg PO TID #20 tabs 08/26/24 Unknown Rx ondansetron 4 mg disintegrating 4 mg PO Q8H PRN PRN Nausea #10 tabs 08/26/24 Unknown Rx tablet famotidine 20 mg tablet (Pepcid) 20 mg PO BID #14 tabs 08/28/24 Unknown Rx Allergy/AdvReac Type Severity Reaction Status Date / Time escitalopram (From Lexapro) Allergy Other Verified 08/28/24 00:24 lamotrigine (From Lamictal) Allergy Hives Verified 08/28/24 00:24 nitrofurantoin (From Allergy Unknown Verified 08/28/24 00:24 Macrobid) nitrofurantoin Allergy Unknown Verified 08/28/24 00:24 macrocrystalline (From Macrobid) codeine AdvReac Nausea Verified 08/28/24 00:24 Family History Mother Anxiety Hypertension High cholesterol Diabetes Depression Father Hypertension Surgical History History of tubal ligation History of lumpectomy of right breast History of repair of rotator cuff Hx of surgical procedure Hx of removal of ovary History of tonsillectomy and adenoidectomy Social History household members: family housing: house Smoking Status: Current every day smoker tobacco type: cigarettes substance use type: marijuana additional social history: pt does not vape, does not take aspirin, pt does report using marijuana daily,does uses edibles on occassion, does use ibuprofen as needed. ROS ROS ED Review of Systems ROS Unobtainable: other Constitutional Constitutional ED: Reports lethargy; Denies chills, fever(s), sweats or weight loss Eyes Eyes: Denies blurry vision, change in vision or diplopia ENT ENT ED: Denies rhinorrhea or sore throat Cardiovascular Cardiovascular: Denies chest pain, orthopnea or racing heartbeat Respiratory/Chest Respiratory/Chest: Denies cough, dyspnea, dyspnea on exertion, orthopnea or sputum Gastrointestinal Gastrointestinal: Denies abdominal pain, diarrhea, nausea or vomiting Genitourinary Genitourinary ED: Denies dysuria, hematuria or urinary frequency Musculoskeletal Musculoskeletal: Reports other Details: Right shoulder postop pain ; Denies arthralgias, back pain, myalgias or neck pain Integumentary Denies abscess, Abrasions or rash Neurologic Neurologic: Denies headache(s) or weakness Psychiatric Psychiatric: Denies anxiety, depression or suicidal thoughts Endocrine Endocrinology: Denies polydipsia, polyphagia or polyuria Hematologic/Lymphatic Hematologic/Lymphatic: Denies easy bleeding, easy bruising or lymphadenopathy Allergic/Immunologic Allergic/Immunologic ED: Denies mouth swelling, tongue swelling or urticaria EXAM Physical Exam Const Vital Signs: 10/17/24 10:57 Temperature 97.7 F L Temperature Source Temporal Pulse Rate 85 Respiratory Rate 16 Blood Pressure 130/68 H Blood Pressure Mean 88 Pulse Ox 97 Oxygen Delivery Method Room Air Positive well nourished and well developed General Appearance ED: well developed and NAD HEENT Reports TM's clear and moist mucous membranes normocephalic and atraumatic; Negative for trauma or tenderness Tympanic Membrane ED: Yes TM's clear Eyes PERRL and EOMs intact bilaterally General Eye ED: Negative for pale conjunctiva or scleral icterus Neck no lymphadenopathy, supple and no JVD General: Negative for tenderness Chest Wall inspection of chest normal and palpation of chest normal Chest: Negative for tenderness Resp normal respiratory effort and clear to auscultation bilaterally Effort and Inspection: Negative for respiratory distress or pain with movement Auscultation: Negative for rhonchi, wheezes or diminished lung sounds Cardio regular rate, regular rhythm, S1 normal heart sound, S2 normal heart sound and no murmurs Peripheral Pulses: pulses 2+ throughout GI normal to inspection, nondistended, normoactive bowel sounds, soft to palpation, non-tender, non-distended and no masses Back/Spine no CVA tenderness and no thoracic nor lumbar tenderness Extremity Extremity Narrative: Right shoulder-patient has recent small incisions over the anterior and lateral aspect of the shoulder consistent a stent with laparoscopic type wounds related to recent surgery. No signs of infection. Patient has a sling in place. She is neurovascularly intact in her hand. Decreased range of motion at the shoulder secondary to pain. General Extremety ED: Negative for edema General Extremity: Negative for edema Neuro oriented x3, CN's II-XII intact bilaterally, no sensory deficits noted and gait normal Sensorium / Orientation: awake, alert, oriented to person, oriented to place and oriented to time Motor Exam: strength 5/5 throughout and strength abnormal Psych mental status grossly normal Skin no rashes or lesions noted and no wounds MDM MDM MDM Narrative Medical decision making narrative: Patient with right shoulder postop pain. She was given a milligram of Dilaudid IM. Will attempt to contact her surgeon. Will write a prescription for Percocet for ongoing pain control and advised that she follow-up with her surgeon. I did discuss case with her surgeons office and they will call in a prescription for her therefore I will cancel my prescription for Percocet and will make patient aware. Discharge Plan Triage Chief Complaint: Other, Pain/Inj ED Provider: Jude Miller Dx/Rx/DC Orders Clinical Impression: Post-op pain Instructions: ED Post Op Wound Check, Pain Prescriptions: No Action trazodone 100 MG tablet 100 mg PO QHS (DME) BreatheRite MDI Spacer Spacer MISCELLANEOUS X1 meloxicam 15 mg tablet 15 mg PO DAILY albuterol sulfate 90 mcg/actuation HFA aerosol inhaler 2 puff inhalation Q4H PRN PRN (Reason: wheezing) lidocaine 5 % adhesive patch,medicated 1 patch topical Q24H Rx Instructions: WEAR PATCH FOR 12 HOURS AND THEN REMOVE FOR 12 HOURS BEFORE APPLYING A NEW ONE tizanidine 4 mg tablet 4 mg PO Q6H PRN PRN (Reason: muscle relaxation) ondansetron 4 mg tablet,disintegrating 4 mg PO Q8H PRN PRN (Reason: Nausea) Qty: 10 0RF dicyclomine 20 mg tablet 20 mg PO TID Qty: 20 0RF famotidine [Pepcid] 20 mg tablet 20 mg PO BID Qty: 14 0RF Primary Care Provider: Tamika Mario Referrals: Tamika Mario MD [Primary Care Provider] - Activity Restrictions/Additional Instructions: Follow-up with your surgeon for further pain control. Print Language: Uzbek Disposition Disposition: Home, Self Care
[2024-10-17] MEDS: HYDROmorphone 1 MG/ML Syringe IM (11:23)
== END 2024-10-17 11:42 | disposition home or self-care (01) ==
LOC: ED 11:18
PROVIDERS: Emergency Provider Emergency Medicine; PCP Internal Medicine; Visit Provider Emergency Medicine
DX: M25.511 Pain in right shoulder (principal); G89.18 Other acute postprocedural pain; F17.210 Nicotine dependence, cigarettes, uncomplicated
CPT/HCPCS: 96372; 99282

== ENCOUNTER 2024-10-23 10:04 | Emergency (ER) | payer MEDICAID, SELFPAY ==
[2024-10-23 10:05] VITALS: BP 120/72; PULSE 93; RESP 20; TEMP 36.9; O2SAT 100; BMI 22.6
[2024-10-23 10:36] VITALS: BP 115/82; PULSE 74; O2SAT 95
[2024-10-23 11:36] VITALS: BP 115/82; PULSE 74
--- NOTE | 2024-10-23 11:50 | ED.RN ---
Patient heard yelling from the room. RN enters patient room. patient found throwing things into the trash can and stripping the bed sheets. RN asks if she could help her? Patient states I have been here for 2 hours waiting for my pain meds and no one has come into help me. I pissed all down my legs and my pants are wet. RN states I will check on your meds and we can get you a new pair of pants? Patient states you guys are terrible. I am in pain and no one is helping me. the Doctor said he would find someone to give me my med and no one has. RN states ma'am I understand. I have to leave to check on it. PEYMAN Quintero pulling meds from [facility] for patient.
[2024-10-23] MEDS: Ondansetron ODT 4 MG Tablet PO (11:54)
[2024-10-23] MEDS: Morphine 4 MG/ML Syringe IM (11:55)
--- NOTE | 2024-10-23 12:00 | ED.RN ---
PT STATES SHE WANTS TO LEAVE. PT AGREES TO SHOT AND 20 MINUTE SHOT TIME. AFTER IM INJECTION PT STORMS OUT. DR NOVOA
--- NOTE | 2024-10-23 12:07 | ED.RN ---
After Ingrid gave patient her meds she had been requesting this RN gave patient disposable pains and mesh underwear to go home in. Patients visitor leaves the room stating she is going to look for clothes in her car. A few minutes later patient see leaving ED prior to discharge instructions. ingrid, Charge nurse notified.
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
--- NOTE | 2024-10-23 18:32 | CM.ED ---
Social Work SW noted patient to be in room by herself and tearful, SW stopped to see if patient would like any family members contacted. Patient stated she wanted her mom but she did not know her number and did not have her phone. SW offered to help find mothers phone number, patient then asked if SW could call [employer] and ask her daughter to come to ED. SW did call and spoke with patients daughter, daughter stated she would be on her way to emergency room. SW offered to stay with patient until daughter arrived, patient declined same. No further needs identified at this time. Maranda Coats, [employer] BEVELER, CREDIT SPECIALIST
== END 2024-10-23 12:11 | disposition left against medical advice (07) ==
PROVIDERS: Emergency Provider Emergency Medicine; PCP Internal Medicine; Visit Provider Emergency Medicine
DX: M25.511 Pain in right shoulder (principal); V53.6XXA Passenger in pick-up truck or van injured in collision with car, pick-up truck or van in traffic accident, initial encounter; G89.18 Other acute postprocedural pain; F17.210 Nicotine dependence, cigarettes, uncomplicated
CPT/HCPCS: 96372; 99284

== ENCOUNTER 2024-10-31 21:53 | Emergency (ER) | payer MEDICAID, SELFPAY ==
[2024-10-31 21:54] VITALS: BP 125/97; PULSE 92; RESP 18; TEMP 36.6; O2SAT 99; BMI 21.7
--- NOTE | 2024-10-31 22:27 | RAD_ITS ---
PROCEDURE: SHOULDER MIN 2 VIEWS 10/31/2024 REASON FOR EXAM: INJURY TECHNIQUE: Three views of the right shoulder COMPARISON: None FINDINGS: No acute fracture or dislocation. Joint spaces are maintained. Acromioclavicular and glenohumeral joint spaces are within normal limits. Acromiohumeral interval is maintained. Sequela of prior rotator cuff surgery. No focal soft tissue abnormality. Imaged lung moore are clear. RAD/Shoulder min 2 Views IMPRESSION: No acute findings. Reading Location: [facility]
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
[2024-10-31] MEDS: Morphine 4 MG/ML Syringe IM (22:43)
[2024-10-31] MEDS: Ondansetron ODT 4 MG Tablet 8 MG PO (22:43)
[2024-10-31] MEDS: oxyCODONE 5 MG Tablet 10 MG PO (23:59)
[2024-11-01] VITALS: BP 125/73; PULSE 69; RESP 18; TEMP 36.4; O2SAT 100
== END 2024-11-01 00:03 | disposition home or self-care (01) ==
PROVIDERS: Emergency Provider Emergency Medicine; PCP Internal Medicine; Visit Provider Emergency Medicine
DX: M25.511 Pain in right shoulder (principal); V44.6XXA Car passenger injured in collision with heavy transport vehicle or bus in traffic accident, initial encounter; F17.210 Nicotine dependence, cigarettes, uncomplicated
CPT/HCPCS: 73030; 96372; 99282

== ENCOUNTER 2024-11-06 11:12 | Emergency (ER) | payer MEDICAID, SELFPAY ==
[2024-11-06 11:13] VITALS: BP 138/120; PULSE 119; RESP 22; TEMP 36.7; O2SAT 99; BMI 20.7
[2024-11-06] MEDS: 0.9% Normal Saline (1000mL) 1,000 ML 999 ML IV (11:41)
[2024-11-06] MEDS: Ondansetron 4 MG/2 ML Vial IV (11:42)
[2024-11-06] MEDS: Ketorolac 15 MG/ML Vial IV (11:42)
[2024-11-06 11:54] LABS: Internal QC Validated? YES +Cl - CLEAR BKGD; Pregnancy, Serum, hCG Quali. NEGATIVE Negative
[2024-11-06 11:57] LABS: Absolute Lymphocyte Count 1.83 X10^3/uL (0.83-4.51); Absolute Neutrophil Count 7.3 X10^3/uL (2.0-7.7); Basophil# 0.07 X10^3/uL; Basophil% 0.7 % (0-1); Eosinophil# 0.07 X10^3/uL; Eosinophils% 0.7 % (0-5); Hematocrit 44.9 % (37-47); Hemoglobin 15.6 g/dL (12.0-15.0); Lymphocyte # 1.83 X10^3/ul (0.83-4.51); Lymphocyte % 18.3 % (19-41); Mean Corp Hgb Conc 34.7 g/dL (32-36); Mean Platelet Vol. 9.7 fl (6.2-12.0); Monocyte# 0.66 X10^3/uL; Monocyte% 6.6 % (0-10); NRBC Flagged by Analyzer 0 % (0-5); Neutrophil # 7.33 X10^3/uL (2.7-7.7); Neutrophil % 73.3 % (47-70); Platelet Count 406 K/mm3 (150-450); RBC Distribution Width SD 40.7 fl (35.1-43.9); Red Blood Count 4.88 M/mm3 (4.2-5.4)
[2024-11-06 12:03] LABS: ALB/GLOB Ratio 1.4 RATIO (0.9-2.4); AST(SGOT) 21 U/L (<=31); Alanine Aminotransfer ALT/SGPT 14 U/L (<=34); Albumin, Serum 4.4 g/dL (3.5-5.0); Alkaline Phosphatase 70 U/L (35-104); Anion Gap 14 (5-15); BUN 6 mg/dL (4-19); BUN/Creat Ratio 8.6 RATIO (10-20); Calcium,Total 9.7 mg/dL (7.6-11.0); Carbon Dioxide 19.9 mmol/L (21.0-32.0); Chloride 104 mmol/L (98-108); Creatinine, Serum 0.72 mg/dL (0.70-1.20); EST Glomerular Filtration Rate 108 (>60); Estimated Creatinine Clearance 90.74 ml/min (50-250); Globulin 3.1 g/dL (2.2-4.2); Glucose 135 mg/dL (70-99); Lipase 26 U/L (13-75); Potassium 3.6 mmol/L (3.3-5.1); Protein, Total 7.6 g/dL (5.9-8.4); Sodium Level 138 mmol/L (133-145); Total Bilirubin 0.52 mg/dL (0.00-1.30)
--- NOTE | 2024-11-06 12:44 | EX.ED.DYSGE1 ---
HPI History of Present Illness Chief Complaint: Nausea/Vomiting Narrative Narrative: 44-year-old female past medical history of chronic right shoulder pain, states she has had rotator cuff surgery twice, presents with pain in her right shoulder, but also nausea and vomiting that began today. She states that yesterday she began feeling nauseated, but then started vomiting early today. She states that every time the vomit hits the back of her throat, she starts heaving again. She now has dry heaving. Of note, she states she did smoke marijuana 2 days ago. No other exacerbating or alleviating factors. She does feel mild abdominal cramping in the epigastrium as well. [facility] Medical History Marijuana use Right rotator cuff tear Wears partial dentures Hepatitis Smoker History of echocardiogram History of stress test Cardiology follow-up encounter History of CHF (congestive heart failure) Esophageal tear Anxiety Home Medications ?Medication ?Instructions ?Recorded ?Last Taken ?Type trazodone 100 mg tablet 100 mg PO QHS 01/03/17 07/18/24 History inhalational spacing device 10/09/23 Unknown History (BreatheRite MDI Spacer) meloxicam 15 mg tablet 15 mg PO DAILY 01/01/24 07/18/24 History albuterol sulfate 90 mcg/actuation 2 puff inhalation Q4H PRN PRN 01/06/24 07/18/24 History aerosol inhaler wheezing lidocaine 5 % topical patch 1 patch topical Q24H 02/27/24 Unknown History tizanidine 4 mg tablet 4 mg PO Q6H PRN PRN muscle 02/27/24 Unknown History relaxation dicyclomine 20 mg tablet 20 mg PO TID #20 tabs 08/26/24 Unknown Rx ondansetron 4 mg disintegrating 4 mg PO Q8H PRN PRN Nausea #10 tabs 08/26/24 Unknown Rx tablet famotidine 20 mg tablet (Pepcid) 20 mg PO BID #14 tabs 08/28/24 Unknown Rx Allergy/AdvReac Type Severity Reaction Status Date / Time escitalopram (From Lexapro) Allergy Other Verified 11/06/24 11:13 lamotrigine (From Lamictal) Allergy Hives Verified 11/06/24 11:13 nitrofurantoin (From Allergy Unknown Verified 11/06/24 11:13 Macrobid) nitrofurantoin Allergy Unknown Verified 11/06/24 11:13 macrocrystalline (From Macrobid) codeine AdvReac Nausea Verified 11/06/24 11:13 Family History Mother Anxiety Hypertension High cholesterol Diabetes Depression Father Hypertension Surgical History History of tubal ligation History of lumpectomy of right breast History of repair of rotator cuff Hx of surgical procedure Hx of removal of ovary History of tonsillectomy and adenoidectomy Social History household members: family housing: house Smoking Status: Current every day smoker tobacco type: cigarettes substance use type: marijuana additional social history: pt does not vape, does not take aspirin, pt does report using marijuana daily,does uses edibles on occassion, does use ibuprofen as needed. ROS ROS ED ROS Narrative Review of systems positive for nausea and vomiting as well as epigastric abdominal cramping. No fevers or chills. Chronic right shoulder pain. EXAM Physical Exam Narrative Exam Narrative: Afebrile. Vital signs noted. Nontoxic-appearing. Right shoulder in sling without erythema. Cardiovascular examination reveals mild tachycardia. Lungs clear to auscultation bilaterally. Abdomen is soft and nontender without guarding or rebound. Neurological examination nonfocal and nonlateralizing. Able to ambulate to the bathroom without difficulty. Const Vital Signs: 11/06/24 11:13 Temperature 98.1 F Temperature Source Oral Pulse Rate 119 H Respiratory Rate 22 H Blood Pressure 138/120 H Blood Pressure Mean 126 Pulse Ox 99 Oxygen Delivery Method Room Air MDM MDM MDM Narrative Medical decision making narrative: Differential diagnosis includes but not limited to cannabis induced hyperemesis versus gastroenteritis versus pancreatitis. She was administered Zofran. I reviewed her laboratory work and she has normal white count of 10.0 with hemoglobin slightly hemoconcentrated at 15.6 but hematocrit 44.9, platelet count normal at 406. Electrolyte panel shows CO2 slightly low at 19.9 which may be hyperventilation. Glucose normal at 135 if not slightly elevated with a normal anion gap of 14. LFTs are grossly unremarkable. Lipase normal at 26. Serum negative. I was informed by the RN that the patient was feeling improved and wanted her IV out and wanted to leave. She eloped before final discharge instructions were given. I would have written her for a prescription for Zofran if needed. Disposition is left before formal discharge. Patient is in stable condition. History & Record Review Discussion w/independent historian: Patient Lab Data Attestation: I reviewed the patient's lab results. Labs: Laboratory Results - last 24 hr 11/06/24 11:20 WBC 10.0 RBC 4.88 Hgb 15.6 H Hct 44.9 MCV 92.0 MCH 32.0 MCHC 34.7 RDW Std Deviation 40.7 RDW Coeff of Denys 12.0 Plt Count 406 MPV 9.7 Immature Gran % (Auto) 0.400 Neut % (Auto) 73.3 H Lymph % (Auto) 18.3 L Carson % (Auto) 6.6 Eos % (Auto) 0.7 Baso % (Auto) 0.7 Absolute Neuts (auto) 7.3 Absolute Lymphs (auto) 1.83 Nucleated RBC % 0 Sodium 138 Potassium 3.6 Chloride 104 Carbon Dioxide 19.9 L Anion Gap 14 BUN 6 Creatinine 0.72 Estim Creat Clear Calc 90.74 Est GFR (MDRD) Non-Af 108 BUN/Creatinine Ratio 8.6 L Glucose 135 H Calcium 9.7 Total Bilirubin 0.52 AST 21 ALT 14 Alkaline Phosphatase 70 Total Protein 7.6 Albumin 4.4 Globulin 3.1 Albumin/Globulin Ratio 1.4 Lipase 26 Serum , Qual NEGATIVE Discharge Plan Triage Chief Complaint: Nausea/Vomiting ED Provider: Xavi Biggs Dx/Rx/DC Orders Clinical Impression: Nausea and vomiting, Chronic right shoulder pain Instructions: ED Chronic Pain, ED Vomiting (Adult) Prescriptions: No Action trazodone 100 MG tablet 100 mg PO QHS (DME) BreatheRite MDI Spacer Spacer MISCELLANEOUS X1 meloxicam 15 mg tablet 15 mg PO DAILY albuterol sulfate 90 mcg/actuation HFA aerosol inhaler 2 puff inhalation Q4H PRN PRN (Reason: wheezing) lidocaine 5 % adhesive patch,medicated 1 patch topical Q24H Rx Instructions: WEAR PATCH FOR 12 HOURS AND THEN REMOVE FOR 12 HOURS BEFORE APPLYING A NEW ONE tizanidine 4 mg tablet 4 mg PO Q6H PRN PRN (Reason: muscle relaxation) ondansetron 4 mg tablet,disintegrating 4 mg PO Q8H PRN PRN (Reason: Nausea) Qty: 10 0RF dicyclomine 20 mg tablet 20 mg PO TID Qty: 20 0RF famotidine [Pepcid] 20 mg tablet 20 mg PO BID Qty: 14 0RF Primary Care Provider: Tamika Mario Referrals: Tamika Mario MD [Primary Care Provider] - Activity Restrictions/Additional Instructions: Follow-up with your primary care provider. Continue your previous analgesics as directed. Print Language: Cymro Disposition Disposition: Home, Self Care Discharge Date/Time: 11/06/24 13:43
--- NOTE | 2024-11-06 13:17 | ED.RN ---
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 THIS PT ASKS THIS NURSE CAN I GO HOME NOW, ALL MY RESULTS HAVE BEEN IN SINCE 11, I FEEL BETTER, I WANT TO BE DISCHARGE SO I CAN TAKE MY PAIN MEDS AT HOME. THIS NURSE EXPLAINED TO PT THAT THE DOCTOR HAS TO BE ABLE TO REVIEW TEST RESULTS AND THEN SHE WILL BE ABLE TO BE DISCHARGE. PT STATES WELL I AM IN PAIN AND I WANT TO GO HOME. THIS NURSE NOTIFIED DR. GIRALDO.
--- NOTE | 2024-11-06 13:35 | ED.RN ---
THIS PTS MOM CAME OUT OF PT ROOM UP TO THIS NURSE AND STATED IM SURE YOU GUYS ARE SUPER BUSY AND SINCE SHE IS FEELING BETTER I WANT TO TAKE HER HOME SO SHE CAN TAKE HER PAIN PILL. THE DOCTOR HAS NOT BEEN IN AND WE ALREADY KNOW OUR RESULTS. THI NURSE EDUCATED PT THAT LEAVING BEFORE THE DOCTOR CAN REVIEW ALL LAB RESULTS CAN BE DANGEROUS BUT A PT SHE HAS A RIGHT TO LEAVE. THIS PT MOM ASKED THIS NURSE TO REMOVE PT IV SO THEY CAN LEAVE.
--- NOTE | 2024-11-06 13:42 | ED.RN ---
DR. GIRALDO NOTIFIED OF PT WANTING TO LEAVE, DR. GIRALDO INSTRUCTED THIS NURSE TO LET PT KNOW HE WILL BE THERE TO DISCUSS RESULTS IN A COUPLE MINUTES. THIS NURSE INFORMED PT OF DR. MAYORGA STATEMENT, PT STILL REQUESTING TO LEAVE WITHOUT PAPERWORK.
== END 2024-11-06 13:43 | disposition home or self-care (01) ==
LOC: ED 11:34
PROVIDERS: Emergency Provider Emergency Medicine; PCP Internal Medicine; Visit Provider Emergency Medicine
DX: R11.2 Nausea with vomiting, unspecified (principal); I50.9 Heart failure, unspecified; M25.511 Pain in right shoulder; G89.29 Other chronic pain; F17.210 Nicotine dependence, cigarettes, uncomplicated; Z98.51 Tubal ligation status
CPT/HCPCS: 80053; 83690; 84703; 85025; 96361; 96374; 96375; 99282; A4216; J2405

== ENCOUNTER 2024-12-01 09:40 | Emergency (ER) | payer MEDICAID, SELFPAY ==
[2024-12-01 09:41] VITALS: BP 135/79; PULSE 125; RESP 20; TEMP 36.5; O2SAT 98; BMI 21.9
--- OUTSIDE RECORDS SUMMARY | 2024-12-01 10:13 | XMS RPT_ITS | CCD ---
Author Organization [facility] Inform ion Partnership [facility] Care Team Providers Care Salesperson Art Objects Name Role Phone Maile Norman Primary Care Provider ESTER GARCIA, DR GR Primary Care Physician [phone] Maile Norman MD Primary Care Provider [facility] TREE DRILLER.DISABILITY MANAGER, Charles Unavailable Maile Norman MD Primary Care Provider CESAR MENESES DO Attending Unavailable ESTER GARCIA, DR GR Primary Care Unavailable OWEN GARCIA, DR LAVONNE Rodríguez Attending Unavailarnulfo NORMAN MD, DR GR Primary Care Unavailable VINEET GARCIA, JUAN MIGUEL Mcdonald Attending Unavail kell NORMAN MD, DR GR Primary Care Unavailable ESTER GARCIA, DR GR Primary Care Unavailable ADILSON GARCIA, DR TU Petit Attending Cornel MANLEY MD, JUAN MIGUEL Mcdonald Attending Unavail able ESTER GARCIA, DR GR Primary Care Unavailable [facility], CHARLES Attending Unavailable TALAMPAS, MAILE D Primary Care Unavailable LOUIS VALENCIA Attending Unavailab le TALAMPAS, MAILE D Primary Care Unavailable SELF Referring Unavailable LOUIS VALENCIA Admitting Unavailab le TALAMPAS, MAILE D Primary Care Unavailable LOUIS VALENCIA Attending Unavailab le LOUIS VALENCIA Attending Unavailab le TALAMPAS, MAILE D Primary Care Unavailable TALAMPAS, MAILE D Primary Care Unavailable LOUIS VALENCIA Attending Unavailab le TALAMPAS, MAILE D Primary Care Unavailable LOUIS VALENCIA Referring Unavailab le TALAMPAS, MAILE D Primary Care Unavailable ERIN, SAM Referring Unavailable LOUIS VALENCIA Attending Unavailab jake NORMAN MD, DR GR Primary Care Unavailable VINEET GARCIA, JUAN MIGUEL Mcdonald Attending Unavail able Gaspar TREE DRILLER.MEDICAL CODING TECHNICIAN, Karen Unavailable Erin TREE DRILLER.DISABILITY MANAGER, Sam Unavailable Erin TREE DRILLER.DISABILITY MANAGER, Sam Unavailable Erin TREE DRILLER.DISABILITY MANAGER, Sam Unavailable LOUIS VALENCIA Admitting Unavailab le LOUIS VALENCIA Attending Unavailab le TALAMPAS, MAILE D Primary Care Unavailable Talampas, Maile D Primary Care Unavailable Cesar Meneses Attending Unavailable Talampas, Maile D Primary Care Unavailable Ghazoul, Constanza Attending Unavailable Ghazoul, Constanza Consulting Unavailable Ghazoul, Constanza Referring Unavailable Talampas, Maile D Primary Care Unavailable Talampas, Maile D Referring Unavailable Ghazoul, Constanza Attending Unavailable Talampas, Maile D Primary Care Unavailable Talampas, Maile D Referring Unavailable Ghazoul, Constanza Attending Unavailable Pablo Jarquin Attending Unavailable Talampas, Maile D Primary Care Unavailable Talampas, Maile D Primary Care Unavailable Iain Reina Attending Unavailable Talampas, Maile D Primary Care Unavailable Antonio Antonio Attending Unavailable Xavi Biggs Attending Unavailable Talampas, Maile D Primary Care Unavailable Prasanth Keith Attending Unavailable Talampas, Maile D Primary Care Unavailable Talampas, Maile D Primary Care Unavailable Talampas, Maile D Referring Unavailable Ghazoul, Constanza Attending Unavailable Ghazoul, Constanza Attending Unavailable Talampas, Maile D Primary Care Unavailable Ghazoul, Constanza Referring Unavailable Talampas, Maile D Primary Care Unavailable Talampas, Maile D Referring Unavailable Ghazoul, Constanza Attending Unavailable Talampas, Maile D Primary Care Unavailable Talampas, Maile D Referring Unavailable Ghazoul, Constanza Attending Unavailable Talampas, Maile D Primary Care Unavailable Ghazoul, Constanza Attending Unavailable Ghazoul, Constanza Referring Unavailable Talampas, Maile D Primary Care Unavailable John Bass Attending Unavailable Xavi Biggs Attending Unavailable Talampas, Maile D Primary Care Unavailable Reny Painter Attending Unavailable Talampas, Maile D Primary Care Unavailable Arturo Craig Attending Unavailable Talampas, Maile D Primary Care Unavailable Talampas, Maile D Primary Care Unavailable Sylvainazocate, Constanza Attending Unavailable Ghazoul, Constanza Referring Unavailable Talampas, Maile D Primary Care Unavailable Jude Miller Attending Unavailable Talampas, Maile D Primary Care Unavailable Cesar Meneses Attending Unavailable Neo Rubio Attending Unavailable Talampas, Maile D Primary Care Unavailable Gaspar TREE DRILLER.MEDICAL CODING TECHNICIAN, Karen Unavailable [phone] TALAMPAS, MAILE D Primary Care Unavailable TALAMPAS, MAILE D Referring Unavailable TALAMPAS, MAILE D Primary Care Unavailable SAM KHAN Attending Unavailable TALAMPAS, MAILE D Primary Care Unavailable ERIN SAM Attending Unavailable TALAMPAS, MAILE D Primary Care Unavailable LOUIS VALENCIA Attending Unavailab le TALAMPAS, MAILE D Primary Care Unavailable GASPAR, KAREN Attending Unavailable TALAMPAS, MAILE D Primary Care Unavailable SAM KHAN Attending Unavailable TALAMPAS, MAILE D Primary Care Unavailable GALO BERNAL Referring Unavailable TALAMPAS, MAILE D Primary Care Unavailable TALAMPAS, MAILE D Attending Unavailable TALAMPAS, MAILE D Primary Care Unavailable ERIN, SAM Referring Unavailable TALAMPAS, MAILE D Primary Care Unavailable ERIN, SAM Referring Unavailable TALAMPAS, MAILE D Primary Care Unavailable CECILE HERNDON Attending Unavailable TALAMPAS, MAILE D Primary Care Unavailable ERIN SAM Attending Unavailable TALAMPAS, MAILE D Primary Care Unavailable ERIN, SAM Attending Unavailable TALAMPAS, MAILE D Primary Care Unavailable LAURA TOBAR Referring Unavailable KOFI GANNON Attending Unavailable TALAMPAS, MAILE D Primary Care Unavailable GASPAR KAREN Referring Unavailable TALAMPAS, MAILE D Primary Care Unavailable LOUIS VALENCIA Attending Unavailab le TALAMPAS, MAILE D Primary Care Unavailable TALAMPAS, MAILE D Attending Unavailable TALAMPAS, MAILE D Primary Care Unavailable LOUIS VALENCIA Referring Unavailab le TALAMPAS, MAILE D Primary Care Unavailable ERINSAM Attending Unavailable TALAMPAS, MAILE D Primary Care Unavailable SELF Referring Unavailable GASPAR, KAREN Attending Unavailable TALAMPAS, MAILE D Primary Care Unavailable TALAMPAS, MAILE D Attending Unavailable TALAMPAS, MAILE D Primary Care Unavailable CECILE HERNDON Referring Unavailable TALAMPAS, MAILE D Primary Care Unavailable ANNY CARTER Attending Unavailable TALAMPAS, MAILE D Primary Care Unavailable TALAMPAS, MAILE D Primary Care Unavailable GASPAR, KAREN Referring Unavailable TALAMPAS, MAILE D Primary Care Unavailable GASPAR, KAREN Attending Unavailable TALAMPAS, MAILE D Primary Care Unavailable ERINSAM Attending Unavailable TALAMPAS, MAILE D Primary Care Unavailable TALAMPAS, MAILE D Primary Care Unavailable ERIN SAM Attending Unavailable TALAMPAS, MAILE D Primary Care Unavailable TALAMPAS, MAILE D Primary Care Unavailable TALAMPAS, MAILE D Primary Care Unavailable LOUIS VALENCIA Referring Unavailab le TALAMPAS, MAILE D Primary Care Unavailable ERINSAM Referring Unavailable TALAMPAS, MAILE D Primary Care Unavailable SAM KHAN Attending Unavailable TALAMPAS, MAILE D Primary Care Unavailable LOUIS VALENCIA Attending Unavailab le TALAMPAS, MAILE D Primary Care Unavailable TALAMPAS, MAILE D Attending Unavailable TALAMPAS, MAILE D Primary Care Unavailable LOUIS VALENCIA Referring Unavailab le ERIKLOUIS Attending Unavailab le Allergies Allergy Classification Reported Allergen(s) Allergy Type Date of Onset Reaction(s) Facility Acetaminophen / pamabrom / Pyrilamine (4 sources) Acetaminophen / pamabrom / Pyrilamine Drug Allergy 01-20-20 07 Rash, Itching, Shortness of Breath [facility] Anti-Epileptic Agents (4 sources) lamoTRIgine Drug Allergy 01-04-20 17 Hives [facility] busPIRone (4 sources) busPIRone Drug Allergy 11-13-19 21 Mental Status Change [facility] Work Phone: Nitrofurantoin (4 sources) Nitrofurantoin Drug Allergy 12-25-19 15 Unknown [facility] Opioid Agonists (4 sources) Codeine Drug Allergy 02-04-20 07 Hives, Itching [facility] Phenylephrine / Promethazine (4 sources) Phenylephrine / Promethazine Drug Allergy 04-27-20 10 Intolerance [facility] (20 sources) Codeine; Translations: [codeine] Drug Allergy 02-04-20 07 Hives, Itching [facility] (20 sources) lamoTRIgine; Translations: [lamotrigine] Drug Allergy 01-04-20 17 Hives [facility] Work Phone: (20 sources) Nitrofurantoin; Translations: [NITROFURANTOIN MACROCRYSTAL] Drug Allergy 12-25-19 15 Other (See Comments), Unknown [facility] Work Phone: (20 sources) Promethazine-Pheny lephrine; Translations: [PROMETHAZINE-PHEN YLEPHRINE] Propensity to adverse reactions to drug 04-27-20 10 Other (See Comments), Intolerance [facility] Work Phone: (20 sources) Acetaminophen / pamabrom / Pyrilamine; Translations: [APAP/pamabrom/pyr ilamine] Drug Allergy 01-20-20 07 Rash, Itching, Shortness of Breath [facility] (20 sources) busPIRone; Translations: [BUSPIRONE] Drug Allergy 11-13-19 21 Mental Status Change [facility] Work Phone: (2 sources) Acetaminophen / HYDROcodone; Translations: [acetaminophen-hyd rocodone] Drug Allergy Itching (finding) [facility] (20 sources) Escitalopram; Translations: [ESCITALOPRAM] Drug Allergy 09-05-19 23 Intolerance [facility] (18 sources) oxyCODONE; Translations: [OXYCODONE] Drug Allergy 10-20-19 25 Vomiting [facility] (1 source) Codeine Drug Allergy 11-07-19 25 [facility] (1 source) Escitalopram Drug Allergy 11-07-19 25 [facility] (1 source) lamoTRIgine Drug Allergy 11-07-19 25 [facility] (1 source) Nitrofurantoin Drug Allergy 11-07-19 25 [facility] (1 source) Nitrofurantoin Drug Allergy 11-07-19 25 [facility] Medications Current Medications Medication Drug Class(es) Dates Sig (Normalized) Sig (Original) [id number] 200 actuat albuterol 0.09 mg/actuat metered dose inhaler (20 sources) beta2-Adrenergic Agonist Start: 08-11-2023 End: 10-01-2024 take 2 puff(s) by inhalation every four hours as needed for wheezing albuterol HFA (PROVENTIL HFA, VENTOLIN HFA) 90 mcg/actuation inhaler Indications: Viral bronchitis , Acute cough Inhale 2 puffs as instructed every 4 hours as needed for wheezing/shortne ss of breath. 1 each 10/01/2024 Active Comment on above: Inhale 2 Puffs as in structed every 4 hours as needed for wheezing/shortness of breath. ALPRAZolam 0.5 mg oral tablet (18 sources) Benzodiazepine Start: 11-28-2024 End: 12-28-2024 take 1 tablet by mouth every twelve hours as needed for anxiety and anxiety ALPRAZolam (XANAX) 0.5 mg tablet Indications: Anxiety Take 1 tablet by mouth two times a day as needed for anxiety for up to 30 days. 10 tablet 11/28/2024 12/28/2024 Active Start: 10-24-2024 End: 10-31-2024 take 1 tablet by mouth twice daily as needed for anxiety ALPRAZolam (XANAX) 0.5 mg tablet Indications: Situational anxiety , Panic attack Take 1 tablet by mouth two times a day as needed for anxiety for up to 7 days. Do not take with pain med 14 tablet 10/24/2024 10/31/2024 Active Start: 09-29-2024 End: 10-02-2024 take 1 tablet by mouth once daily as needed ALPRAZolam (XANAX) 0.5 mg tablet Indications: Panic attacks Take 1 tablet by mouth once daily as needed (panic attacks) for up to 3 days. 3 tablet 09/29/2024 10/02/2024 Active Start: 07-31-2024 End: 08-07-2024 take 1 tablet by mouth twice daily as needed for anxiety ALPRAZolam (XANAX) 0.5 mg tablet Indications: Situational anxiety , Panic attack Take 1 tablet by mouth two times a day as needed for anxiety for up to 7 days. Do not take with pain med 14 tablet 07/31/2024 08/07/2024 Active Start: 04-12-2024 End: 04-27-2024 take 1 tablet by mouth twice daily as needed for anxiety ALPRAZolam (XANAX) 0.5 mg tablet Indications: Situational anxiety , Panic attack Take 1 tablet by mouth two times a day as needed for anxiety for up to 10 days. Do not take with pain med Patient should start on April 17, 2024. 20 tablet 04/17/2024 04/27/2024 Active Start: 03-28-2024 End: 04-04-2024 take 1 tablet by mouth twice daily as needed for anxiety ALPRAZolam (XANAX) 0.5 mg tablet Indications: Situational anxiety , Panic attack Take 1 tablet by mouth two times a day as needed for anxiety for up to 7 days. Do not take with pain med 14 tablet 03/28/2024 04/04/2024 Active Start: 11-28-2023 End: 12-01-2023 take 1 tablet by mouth once daily as needed ALPRAZolam (XANAX) 0.5 mg tablet Indications: Panic attacks Take 1 tablet by mouth once daily as needed (panic attacks) for up to 3 days. 3 tablet 0 11/28/2023 12/01/2023 Active Start: 01-10-2023 End: 01-24-2023 take 1 tablet by mouth once daily as needed ALPRAZolam (XANAX) 1 mg tablet Indications: Panic attacks Take 1 tablet by mouth once daily as needed (panic attacks) for up to 14 days. 14 tablet 0 01/10/2023 01/24/2023 Start: 09-17-2022 End: 10-17-2022 take 1 tablet by mouth once daily as needed ALPRAZolam (XANAX) 1 mg tablet Indications: Panic attacks Take 1 tablet by mouth once daily as needed (panic attacks) for up to 30 days. 7 tablet 0 09/17/2022 10/17/2022 Active Comment on above: Take 1 tablet by serena th once daily as needed (panic attacks) for up to 30 days. Take 1 tablet by serena th once daily as needed (panic attacks) for up to 14 days. amoxicillin 875 mg oral tablet (2 sources) Penicillin-class Antibacterial Start: 03-28-20 End: 04-07-20 take 1 tablet by mouth twice daily amoxicillin (AMOXIL) 875 mg tablet Take 1 tablet by mouth two times a day for 10 days. As directed 20 tablet 03/28/2024 04/07/2024 Active amoxicillin 500 mg / clavulanate 125 mg oral tablet (6 sources) Penicillin-class Antibacterial Start: 11-23-19 End: 11-30-19 take 1 tablet by mouth every twelve hours amoxicillin-clavulan ate potassium (AUGMENTIN) 500-125 mg per tablet Indications: Ear pain, left , Decreased hearing of left ear , Unspecified perforation of tympanic membrane, left ear Take 1 tablet by mouth every 12 hours for 7 days. 14 tablet 11/22/2024 11/29/2024 Active benzonatate 100 mg oral capsule (20 sources) Non-narcotic Antitussive Start: 08-01-19 End: 12-20-19 take 1 capsule by mouth every eight hours as needed benzonatate (TESSALON PERLES) 100 mg capsule Take 1 capsule by mouth three times a day as needed. 14 capsule 0 08/01/2023 12/20/2023 Discontinued Comment on above: Take 1 capsule by mo [facility] three times a day as needed. cephalexin 500 mg oral capsule (3 sources) Cephalosporin Antibacterial Start: 05-15-20 End: 05-20-20 take 1 capsule by mouth four times daily cephALEXin (KEFLEX) 500 mg capsule Take 1 capsule by mouth four times daily for 5 days. 20 capsule 05/15/2024 05/20/2024 Active Start: 05-02-2023 End: 05-09-2023 take 1 capsule by mouth twice daily cephALEXin (KEFLEX) 500 mg capsule Take 1 capsule by mouth two times a day for 7 days. 14 capsule 0 05/02/2023 05/09/2023 Active Comment on above: Take 1 capsule by [facility] two times a day for 7 days. chlorhexidine gluconate 1.2 mg/ml mouthwash (1 source) Start: 07-18-19 End: 08-01-19 take 15 mL by mouth twice daily chlorhexidine (PERIDEX) 0.12 % solution Take 15 mLs by mouth 2 times daily for 14 days 420 mL 0 07/18/2021 08/01/2021 Active cyclobenzaprine hydrochloride 5 mg oral tablet (18 sources) Muscle Relaxant Start: 01-26-20 End: 01-29-20 cyclobenzaprine 5 mg oral tablet Dose : 5 mg = 1 tab(s), Oral, TID, PRN Muscle spasm, Do not drive or operate heavy machinery, X 3 day(s), # 9 tab(s), 0 Refill(s), 01/28/23 1:12:00 PM EDT Start Date: 01/25/23 Stop Date: 01/28/23 Status: Ordered End: 08-18-2023 cyclobenzaprine HCl (FLEXERI L ORAL) Take by mouth. 0 08/18/2023 Discontinued cyclobenzaprine HCl (FLEXERIL ORAL) Take by mouth. 0 Active Comment on above: Take by mouth. docusate sodium 100 mg oral capsule (20 sources) Start: 10-12-2024 take 1 capsule by mouth twice daily in the evening docusate sodium (COLACE) 100 mg capsule Take 1 capsule by mouth two times a day. 30 capsule 1 10/12/2024 4:32 PM EDT 10/12/2024 Active Start: 08-29-2023 End: 12-20-2023 take 1 capsule by mouth twice daily docusate sodium (COLACE) 100 mg capsule Take 1 capsule by mouth two times a day. 30 capsule 1 08/29/2023 12/20/2023 Discontinued Comment on above: Take 1 capsule by mo ut two times a day. doxycycline monohydrate 100 mg oral tablet (3 sources) Tetracycline-class Drug Start: 05-11-20 End: 05-18-20 take 1 tablet by mouth twice daily doxycycline monohydrate 100 mg tablet Take 1 tablet by mouth two times a day for 7 days. 14 tablet 05/11/2024 05/18/2024 Active gabapentin 300 mg oral capsule (20 sources) Anti-epileptic Agent Start: 01-25-20 End: 10-30-19 take 1 capsule by mouth three times daily gabapentin (NEURONTIN) 300 mg capsule Indications: Chronic right shoulder pain , Tear of right glenoid labrum, sequela , Traumatic tear of right rotator cuff, unspecified tear extent, sequela , S/P shoulder surgery , Post-op pain Take 1 capsule by mouth three times a day for 90 days. 90 capsule 2 07/31/2024 Active Inhalational Spacing Device (2 sources) Start: 08-11-19 End: 08-11-19 Inhalational Spacing Device Indications: Acute cough , Viral bronchitis 1 Device one time only for 1 dose. 1 Each 0 08/11/2023 08/11/2023 Active Comment on above: 1 Device one time on ly for 1 dose. iv contrast (will be provided with radiology test) (1 source) Start: 02-09-20 End: 02-10-20 iv contrast (will be provided with radiology test) Indications: Tear of right glenoid labrum, subsequent encounter , Chronic right shoulder pain MRI shoulder RT Inject, intravenously, once for 1 dose. No IV access, insert saline lock prior to the beginning of sedation, infusion, injection of imaging exam. Discontinue saline lock post exam. If Pt. has a central line or IVAD, may access for administration according to line specific nursing protocol. Once exam is complete flush line and de-access according to line specific nursing protocol in the MR contrast administration guidelines link. 1 Each 0 02/08/2023 02/09/2023 Active Comment on above: MRI shoulder RT Inje ct, intravenously, once for 1 dose. No IV access, insert saline lock prior to the beginning of sedation, infusion, injection of imaging exam. Discontinue saline lock post exam. If Pt. has a central line or IVAD, may access for administration according to line specific nursing protocol. Once exam is complete flush line and de-access according to line specific nursing protocol in the MR contrast administration guidelines link. lidocaine 0.05 mg/mg medicated patch (20 sources) Antiarrhythmic, Amide Local Anesthetic Start: 02-10-20 lidocaine 5% topical patch Apply 1 patch(es), Topical, qDay, remove patches after 12 hours, # 30 patch(es), 0 Refill(s), 54.3 Start Date: 02/10/24 Status: Ordered Start: 01-11-2024 apply 1 dose transde rmal route every twenty-four hours lidocaine (LIDODERM) 5 % Indications: Chronic right shoulder pain Apply 1 Patch as directed every 24 hours. Wear patch for 12 hours and then remove for 12 hours prior to placing new patch, apply to the right shoulder area. 30 Patch 2 01/11/2024 Active meloxicam 15 mg oral tablet (20 sources) Nonsteroidal Anti-inflammatory Drug Start: 02-24-2024 End: 07-31-2024 take 1 tablet by mouth once daily at mealtime meloxicam (MOBIC) 15 mg tablet Indications: Chronic right shoulder pain , Bursitis of right shoulder Take 1 tablet by mouth once daily. With food. 30 tablet 5 07/31/2024 Active Start: 02-10-2024 Mobic Oral, qD ay, 0 Refill(s) Start Date: 02/10/24 Status: Ordered Start: 12-20-2023 take 1 tablet by serena th once daily at mealtime meloxicam (MOBIC) 15 mg tablet Indications: Chronic right shoulder pain , Bursitis of right shoulder Take 1 tablet by mouth once daily. With food. 30 tablet 5 12/20/2023 Active Start: 05-07-2022 End: 06-06-2022 take 1 tablet by mouth once daily for pain meloxicam (MOBIC) 15 mg tablet Take 1 tablet by mouth once daily. for pain. Take with food. 30 tablet 0 05/07/2022 06/06/2022 Active Comment on above: Take 1 tablet by serena th once daily. for pain. Take with food. methylPREDNISolone (1 source) Corticosteroid Start: 2023 End: 2023 methylPREDNISolone (MEDROL, HERNAN,) 4 mg Dose-Pack Indications: Viral bronchitis Follow dosing instructions, take with food. 21 tablet 02/28/2024 03/05/2024 Active morphine sulfate 30 mg extended release oral tablet (7 sources) Opioid Agonist Start: 2024 End: 2024 take 1 tablet by mouth three times daily as needed for pain morphine SR (MS CONTIN) 30 mg 12 hr tablet Indications: Acute pain of right shoulder , S/P shoulder surgery , Traumatic tear of right rotator cuff, unspecified tear extent, subsequent encounter Take 1 tablet by mouth three times a day as needed for pain for up to 7 days. for pain Patient should start on November 07, 2024. 21 tablet 11/07/2024 11/14/2024 Active Start: 11-02-2024 End: 11-09-2024 take 1 tablet by mouth twice daily for pain morphine SR (MS CONTIN) 30 mg 12 hr tablet Indications: Acute pain of right shoulder , S/P shoulder surgery , Traumatic tear of right rotator cuff, unspecified tear extent, subsequent encounter Take 1 tablet by mouth two times a day for 7 days. for pain 14 tablet 11/02/2024 11/06/2024 Discontinued Multivitamin preparation (1 source) take 1 tablet by mouth once daily multivitamin (DAILY VITAMIN ORAL) Take 1 tablet by mouth once daily. Active mupirocin 0.02 mg/mg topical ointment (4 sources) RNA Synthetase Inhibitor Antibacterial Start: 05-23-20 End: 05-28-20 mupirocin (BACTROBAN) 2 % ointment Apply to affected area three times a day for 5 days. 30 g 05/23/2024 05/28/2024 Active ondansetron 4 mg oral tablet (20 sources) Serotonin-3 Receptor Antagonist Start: 11-07-19 take 1 tablet by mouth every eight hours as needed ondansetron (ZOFRAN) 4 mg tablet Take 1 tablet by mouth three times a day as needed for nausea/vomiting. 90 tablet 1 11/06/2024 Active Start: 08-29-2023 End: 11-06-2024 take 1 tablet by mouth every eight hours as needed for nausea ondansetron orally disintegrating (ZOFRAN ODT) 4 mg disintegrating tablet Indications: S/P shoulder surgery Dissolve 1 tablet on tongue every 8 hours as needed for nausea/vomiting. 20 tablet 1 10/15/2024 11/06/2024 Discontinued Start: 07-18-2021 End: 07-18-2021 ondansetron (ZOFRAN-ODT) disintegrating tablet 4 mg Comment on above: Take 1 tablet by serena every 8 hours as needed for nausea/vomiting. oxyCODONE hydrochloride 10 mg oral tablet (17 sources) Opioid Agonist Start: 11-29-19 End: 12-13-19 take 1 tablet by mouth every six hours as needed for pain oxyCODONE IR (ROXICODONE) 10 mg tab Indications: S/P shoulder surgery , Traumatic tear of right rotator cuff, unspecified tear extent, sequela , Acute pain of right shoulder Take 1 tablet by mouth every 6 hours as needed for pain for up to 14 days. Please fill today, 11/28/2024 due to patient [place], leaving this evening 56 tablet 11/28/2024 12/12/2024 Active Start: 11-23-2024 End: 11-22-2024 take 1 tablet by mouth every six hours as needed for pain oxyCODONE IR (ROXICODONE) 10 mg tab Indications: S/P shoulder surgery , Traumatic tear of right rotator cuff, unspecified tear extent, sequela , Acute pain of right shoulder Take 1 tablet by mouth every 6 hours as needed for pain for up to 7 days. Patient should start on November 23, 2024. 28 tablet 11/23/2024 11/22/2024 Discontinued Start: 11-23-2024 End: 11-22-2024 take 1 tablet by mouth every six hours as needed for pain oxyCODONE IR (ROXICODONE) 10 mg tab Indications: S/P shoulder surgery , Traumatic tear of right rotator cuff, unspecified tear extent, sequela , Acute pain of right shoulder Take 1 tablet by mouth every 6 hours as needed for pain for up to 7 days. Patient should start on November 23, 2024. 28 tablet 11/23/2024 11/22/2024 Discontinued Start: 11-16-2024 End: 11-30-2024 take 1 tablet by mouth every six hours as needed for pain oxyCODONE IR (ROXICODONE) 10 mg tab Indications: S/P shoulder surgery , Traumatic tear of right rotator cuff, unspecified tear extent, sequela , Acute pain of right shoulder Take 1 tablet by mouth every 6 hours as needed for pain for up to 7 days. 28 tablet 11/22/2024 11/28/2024 Discontinued Start: 10-14-2024 End: 10-18-2024 take 1 tablet by mouth every four hours as needed oxyCODONE IR (ROXICODONE) 5 mg immediate release tablet Indications: S/P rotator cuff repair Take 1-2 tablets by mouth every 4 hours as needed for pain for up to 3 days. for pain. 10 tablet 10/15/2024 10/18/2024 Active phenylephrine HCl/acetaminop hn (EXCEDRIN SINUS HEADACHE ORAL) (20 sources) phenylephrine HC l/acetaminophn (EXCEDRIN SINUS HEADACHE ORAL) Take by mouth as needed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 Implant Name Type Inv. Item Serial No. Auto Painter Lot No. LRB No. Used Action ANCHOR PUSHLOCK 2.9MM SHORT BIOCOMPOSITE 12.5MM SUTURE CANNULATED EYELET - [id number] Suture [place] ANCHOR PUSHLOCK 2.9MM SHORT BIOCOMPOSITE 12.5MM SUTURE C (more content not included)... Normal [facility] 09-28-2024 CNPN Normal [facility] HISTORY PHYSICALon HISTORY PHYSICAL Normal [facility] 09-27-2024 CNPN Normal [facility] CNOVon 09-21-2024 CNOV Normal [facility] XR HIP FREDDIE 5V PEL+ AP/LAT EA HIPon 09-21-2024 XR HIP FREDDIE 5V PEL+ AP/LAT EA HIP Normal [facility] CNOVon 09-14-2024 CNOV Normal [facility] Ammoniaon 08-28-2024 Ammonia (P) [Moles/Vol] 32.2 umol/L Normal [facility] Comment on above: Performed By: #### L 100.0100, L501.2450, L500.4050, L700.8310 #### [facility] Laboratory [address] [place], [address] Basic Metabolic Profile (BMP )on 08-28-2024 BUN/CRE 9.6 RATIO Low 10-20 [facility] Comment on above: Performed By: #### L 100.0100, L501.2450, L500.4050, L700.6800 #### [facility] Laboratory [address] [place], [address] Calcium [Mass/Vol] 8.2 mg/dL Normal 7.6-11.0 [facility] Comment on above: Performed By: #### L 100.0100, L501.2450, L500.4050, L700.6800 #### [facility] [address] [place], [address] Chloride [Moles/Vol] 102 mmol/L Normal 98-108 [facility] Comment on above: Performed By: #### L 100.0100, L501.2450, L500.4050, L700.6800 #### [facility] [address] [place], [address] CO2 [Moles/Vol] 23.9 mmol/L Normal 21.0-32.0 [facility] Comment on above: Performed By: #### L 100.0100, L501.2450, L500.4050, L700.6800 #### [facility] [address] [place], [address] Creatinine [Mass/Vol] 0.71 mg/dL Normal 0.70-1.20 [facility] Comment on above: Performed By: #### L 100.0100, L501.2450, L500.4050, L700.6800 #### [facility] [address] [place], [address] ECRCL 89.13 ml/min Normal 50-250 [facility] Comment on above: Performed By: #### L 100.0100, L501.2450, L500.4050, L700.6800 #### [facility] [address] [place], [address] GAP 11 Normal 5-15 [facility] Comment on above: Performed By: #### L 100.0100, L501.2450, L500.4050, L700.6800 #### [facility] [address] [place], [address] GFR/1.73 sq M.predicted among non-blacks MDRD (S/P/Bld) [Vol rate/Area] 109 mL/min/{1.73_m2} Normal >60 [facility] Comment on above: Result Comment: mL/m in/1.73m2 CKD-EPI Creatinine Equation (2020) Performed By: #### L 100.0100, L501.2450, L500.4050, L700.6800 #### [facility] [address] [place], [address] Glucose [Mass/Vol] 104 mg/dL High 70-99 [facility] Comment on above: Performed By: #### L 100.0100, L501.2450, L500.4050, L700.6800 #### [facility] [address] [place], [address] Potassium [Moles/Vol] 3.1 mmol/L Low 3.3-5.1 [facility] Comment on above: Performed By: #### L 100.0100, L501.2450, L500.4050, L700.6800 #### [facility] [address] [place], [address] Sodium [Moles/Vol] 137 mmol/L Normal 133-145 [facility] Comment on above: Performed By: #### L 100.0100, L501.2450, L500.4050, L700.6800 #### [facility] [address] [place], [address] Urea nitrogen [Mass/Vol] 7 mg/dL Normal 4-19 [facility] Comment on above: Performed By: #### L 100.0100, L501.2450, L500.4050, L700.6800 #### [facility] Laboratory [address] [place], [address] CBC W/Diff, Automatedon 03-0 4-5 Absolute Lymph 2.94 X10 3/uL Normal 0.83-4.51 [facility] Comment on above: Performed By: #### L 100.0100, L501.2450, L500.4050, L700.6800 #### [facility] [address] [place], [address] Absolute Neut 5.4 X10 3/uL Normal 2.0-7.7 [facility] Comment on above: Performed By: #### L 100.0100, L501.2450, L500.4050, L700.6800 #### [facility] [address] [place], [address] Basophils/100 WBC (Bld) 0.5 % Normal 0-1 [facility] Comment on above: Performed By: #### L 100.0100, L501.2450, L500.4050, L700.6800 #### [facility] [address] [place], [address] Eosinophils/100 WBC (Bld) 2.1 % Normal 0-5 [facility] Comment on above: Performed By: #### L 100.0100, L501.2450, L500.4050, L700.6800 #### [facility] [address] [place], [address] Erythrocyte distribution width (RBC) [Ratio] 12.6 % Normal 11.6-14.6 [facility] Comment on above: Performed By: #### L 100.0100, L501.2450, L500.4050, L700.6800 #### [facility] [address] [place], [address] Hematocrit (Bld) [Volume fraction] 37.1 % Normal 37-47 [facility] Comment on above: Performed By: #### L 100.0100, L501.2450, L500.4050, L700.6800 #### [facility] [address] [place], [address] Hemoglobin (Bld) [Mass/Vol] 12.9 g/dL Normal 12.0-15.0 [facility] Comment on above: Performed By: #### L 100.0100, L501.2450, L500.4050, L700.6800 #### [facility] [address] [place], [address] IG% 0.400 Normal 0.0-0.9 [facility] Comment on above: Result Comment: IG% - Immature Granulocytes (promyelocytes, myelocytes and metamyelocytes) > 1% indicates that a LEFT SHIFT is Present. Performed By: #### L 100.0100, L501.2450, L500.4050, L700.6800 #### [facility] [address] [place], [address] Lymphocytes/100 WBC (Bld) 31.8 % Normal 19-41 [facility] Comment on above: Performed By: #### L 100.0100, L501.2450, L500.4050, L700.6800 #### [facility] [address] [place], [address] MCH (RBC) [Entitic mass] 32.3 pg High 27.0-32.0 [facility] Comment on above: Performed By: #### L 100.0100, L501.2450, L500.4050, L700.6800 #### [facility] [address] [place], [address] MCHC (RBC) [Mass/Vol] 34.8 g/dL Normal 32-36 [facility] [place] Comment on above: Performed By: #### L 100.0100, L501.2450, L500.4050, L700.6800 #### [facility] [address] [place], [address] MCV (RBC) [Entitic vol] 93.0 fL Normal 81-99 [facility] Comment on above: Performed By: #### L 100.0100, L501.2450, L500.4050, L700.6800 #### [facility] [address] [place], [address] Monocytes/100 WBC (Bld) 6.5 % Normal 0-10 [facility] Comment on above: Performed By: #### L 100.0100, L501.2450, L500.4050, L700.6800 #### [facility] [address] [place], [address] Neutrophils/100 WBC (Bld) 58.7 % Normal 47-70 [facility] Comment on above: Performed By: #### L 100.0100, L501.2450, L500.4050, L700.6800 #### [facility] [address] [place], [address] Nucleated RBC (Bld) [#/Vol] 0 10*3/uL Normal 0-5 [facility] Comment on above: Performed By: #### L 100.0100, L501.2450, L500.4050, L700.6800 #### [facility] [address] [place], [address] Platelet mean volume (Bld) [Entitic vol] 9.4 fL Normal 6.2-12.0 [facility] Comment on above: Performed By: #### L 100.0100, L501.2450, L500.4050, L700.6800 #### [facility] [address] [place], [address] Platelets (Bld) [#/Vol] 246 10*3/uL Normal 150-450 [facility] Comment on above: Performed By: #### L 100.0100, L501.2450, L500.4050, L700.6800 #### [facility] [address] [place], [address] RBC (Bld) [#/Vol] 3.99 10*6/uL Low 4.2-5.4 [facility] Comment on above: Performed By: #### L 100.0100, L501.2450, L500.4050, L700.6800 #### [facility] [address] [place], [address] RDW SD 43.0 fl Normal 35.1-43.9 [facility] Comment on above: Performed By: #### L 100.0100, L501.2450, L500.4050, L700.6800 #### [facility] [address] [place], [address] WBC (Bld) [#/Vol] 9.3 10*3/uL Normal 4.4-11.0 [facility] Comment on above: Performed By: #### L 100.0100, L501.2450, L500.4050, L700.6800 #### [facility] [address] [place], [address] Emergency Department Summary on 08-28-2024 Emergency Department Summary [facility] Medical Records Department [address] [place] [address] Emergency Department Summary 08/28/24 MR#: [id number] Acct: [id number] Name: PAT KNIGHT Rep #: [id number] : 1980 44 From: Reny Painter DO PCP: Dr. Maile Norman MD Status:DEP ER Location: ED HPI History of Present Illness Chief Complaint: Weakness Informant: patient Narrative Narrative: Patient is a 44-year-old female with history of anxiety, depression, cirrhosis of the liver and recent GI illness presenting with worsening symptoms. Patient was actually seen in our ER yesterday for abdominal pain, nausea vomiting diarrhea. Show workup including CBC, CMP, lipase and CT abdomen pelvis. Patient states by time she left the ER she was feeling better. She was given nausea medicine which has helped without symptoms and she is continue to have diarrhea. She states she is feeling worse now. She is having pain in her right side of her stomach and into her back. She has a headache. She states her legs feel so weak that she cannot stand up. She was seen in her kitchen and just kept hitting the back of her head on the cabinets and could not stop. She states her symptoms all started at 9 AM yesterday. Her daughter had the same symptoms. She is now having tingling in her hands and her feet. No fevers reported. No recent antibiotics. No history of C. difficile. Has a history of one of her ovaries being removed. No other abdominal history. No other complaints or concerns reported at this time. Patient does use THC and smokes tobacco products but denies any alcohol or other drug use. [facility] Medical History Marijuana use Right rotator cuff tear Wears partial dentures Hepatitis Smoker History of echocardiogram History of stress test Cardiology follow-up encounter History of CHF (congestive heart failure) Esophageal tear Anxiety Home Medications ???Medication ???Instructions ???Recorded ???Last Taken ???Type trazodone 100 mg tablet 100 mg PO QHS 01/03/17 07/18/24 Hi story inhalational spacing device 10/09/23 Unknown History (B[employer] MDI Spacer) meloxicam 15 mg tablet 15 mg PO DAILY 01/01/24 07/18/24 H istory albuterol sulfate 90 mcg/actuation 2 puff inhalation Q4H PRN PRN 07/18/24 History aerosol inhaler wheezing lidocaine 5 % topical patch 1 patch topical Q24H 02/27/24 Unkn own History tizanidine 4 mg tablet 4 mg PO Q6H PRN PRN muscle 4 Unknown History relaxation dicyclomine 20 mg tablet 20 mg PO TID #20 tabs 08/26/24 Unk nown Rx ondansetron 4 mg disintegrating 4 mg PO Q8H PRN PRN Nausea #10 tab s 08/26/24 Unknown Rx tablet famotidine 20 mg tablet (Pepcid) 20 mg PO BID #14 tabs 08/28/24 Unk nown Rx Allergy/AdvReac Type Severity Reaction Status Date / Time escitalopram (From Lexapro) Allergy Other Verified 08/28/24 00:24 lamotrigine (From Lamictal) Allergy Hives Verified 08/28/24 00:24 nitrofurantoin (From Allergy Unknown Verified 08/28/24 00:24 Macrobid) nitrofurantoin Allergy Unknown Verified 08/28/24 00:24 macrocrystalline (From Macrobid) codeine AdvReac Nausea Verified 08/28/24 00:24 Family History Mother Anxiety Hypertension High cholesterol Diabetes Depression Father Hypertension Surgical History History of tubal ligation History of lumpectomy of right breast History of repair of rotator cuff Hx of surgical procedure Hx of removal of ovary History of tonsillectomy and adenoidectomy Social History household members: family housing: house Smoking Status: Current every day smoker tobacco type: cigarettes substance use type: marijuana additional social history: pt does not vape, does not take aspirin, pt does report using marijuana daily,does uses edibles on occassion, does use ibuprofen as needed. ROS ROS ED Constitutional Constitutional ED: Denies fever(s) Eyes Eyes: Denies change in vision ENT ENT ED: Denies sore throat Cardiovascular Cardiovascular: Denies palpitations Respiratory/Chest Respiratory/Chest: Denies cough or dyspnea Gastrointestinal Gastrointestinal: Reports abdominal pain, diarrhea, nausea and vomiting Musculoskeletal Musculoskeletal: Denies arthralgias or myalgias Neurologic Neurologic: Reports headache(s), paresthesias and weakness Psychiatric Psychiatric: Reports anxiety Hematologic/Lymphatic Hematologic/Lymphatic : Denies easy bleeding or easy bruising EXAM Physical Exam Const Vital Signs: 08/28/24 00:23 08/28/24 00:24 08/28/24 00:27 Temperature 97.5 F L 97.5 F L Temperature Source (more content not included)... Normal [facility] Lactic Acidon 08-28-2024 Lactate [Moles/Vol] 1.1 mmol/L Normal 0.0-2.0 [facility] Comment on above: Order Comment: Y Performed By: #### L 100.0100, L501.2450, L500.4050, L700.6800 #### [facility] Laboratory [address] [place], [place], [id number] [phone] Lipaseon 08-28-2024 Lipase [Catalytic activity/Vol] 31 U/L Normal 13-75 [facility] Comment on above: Result Comment: Padma gee note: LIPASE revised reference range effective 22. New Lipase methodology. Expected to produce lower values than the previous assay method. NEW Reference Range: 13 - 75 U/L Performed By: #### L 100.0100, L501.2450, L500.4050, L700.6800 #### [facility] [address] [place], [address] Liver Profileon 08-28-2024 Albumin [Mass/Vol] 3.5 g/dL Normal 3.5-5.0 [facility] Comment on above: Performed By: #### L 100.0100, L501.2450, L500.4050, L700.6800 #### [facility] [address] [place], [address] ALK PHOS 57 U/L Normal 35-104 [facility] Comment on above: Performed By: #### L 100.0100, L501.2450, L500.4050, L700.6800 #### [facility] [address] [place], [address] ALT [Catalytic activity/Vol] 10 U/L Normal <=34 [facility] Comment on above: Performed By: #### L 100.0100, L501.2450, L500.4050, L700.6800 #### [facility] [address] [place], [address] AST [Catalytic activity/Vol] 26 U/L Normal <=31 [facility] Comment on above: Performed By: #### L 100.0100, L501.2450, L500.4050, L700.6800 #### [facility] [address] [place], [address] D BILI < 0.08 Normal 0.00-0.30 [facility] Comment on above: Performed By: #### L 100.0100, L501.2450, L500.4050, L700.6800 #### [facility] [address] [place], [address] Globulin (S) [Mass/Vol] 2.6 g/dL Normal 2.2-4.2 [facility] Comment on above: Performed By: #### L 100.0100, L501.2450, L500.4050, L700.6800 #### [facility] [address] [place], [address] T BILI < 0.15 Normal 0.00-1.30 [facility] Comment on above: Performed By: #### L 100.0100, L501.2450, L500.4050, L700.6800 #### [facility] [address] [place], [address] T PROT 6.0 g/dL Normal 5.9-8.4 [facility] Comment on above: Performed By: #### L 100.0100, L501.2450, L500.4050, L700.6800 #### [facility] [address] [place], [address] Urinalysis, Completeon 08-28 BACTERIA Normal None Seen [facility] Comment on above: Order Comment: CLEAN CATCH Result Comment: PT D EP ER ED.M Performed By: #### L 400.0001 #### [facility] [address] [place], [address] BILIRUBIN URINE Normal Negative [facility] Comment on above: Order Comment: CLEAN CATCH Result Comment: PT D EP ER ED.M Performed By: #### L 400.0001 #### [facility] [address] [place], [address] Clarity (U) Normal Clear [facility] Comment on above: Order Comment: CLEAN CATCH Result Comment: PT D EP ER ED.M Performed By: #### L 400.0001 #### [facility] [address] [place], [address] Color (U) Normal Yellow [facility] Comment on above: Order Comment: CLEAN CATCH Result Comment: PT D EP ER ED.M Performed By: #### L 400.0001 #### [facility] [address] [place], [address] EPI,SQUAMOUS Normal 5-10 [facility] Comment on above: Order Comment: CLEAN CATCH Result Comment: PT D EP ER ED.M Performed By: #### L 400.0001 #### [facility] [address] [place], [address] GLUCOSE, UR Normal Normal [facility] Comment on above: Order Comment: CLEAN CATCH Result Comment: PT D EP ER ED.M Performed By: #### L 400.0001 #### [facility] [address] [place], [address] KETONE UR Normal Negative [facility] Comment on above: Order Comment: CLEAN CATCH Result Comment: PT D EP ER ED.M Performed By: #### L 400.0001 #### [facility] [address] [place], [address] LEUK ESTERASE Normal Negative [facility] Comment on above: Order Comment: CLEAN CATCH Result Comment: PT D EP ER ED.M Performed By: #### L 400.0001 #### [facility] [address] [place], [address] Mucus Ql (Urine sed) Normal [facility] Comment on above: Order Comment: CLEAN CATCH Result Comment: PT D EP ER ED.M Performed By: #### L 400.0001 #### [facility] [address] [place], [address] Nitrite Ql (U) Normal Negative [facility] Comment on above: Order Comment: CLEAN CATCH Result Comment: PT D EP ER ED.M Performed By: #### L 400.0001 #### [facility] [address] [place], [address] OCCULT BLOOD-UR Normal Negative [facility] Comment on above: Order Comment: CLEAN CATCH Result Comment: PT D EP ER ED.M Performed By: #### L 400.0001 #### [facility] [address] [place], [address] pH UR Normal 5.0 - 8.0 [facility] Comment on above: Order Comment: CLEAN CATCH Result Comment: PT D EP ER ED.M Performed By: #### L 400.0001 #### [facility] [address] [place], [address] PROT DIPSTX Normal Negative [facility] Comment on above: Order Comment: CLEAN CATCH Result Comment: PT D EP ER ED.M Performed By: #### L 400.0001 #### [facility] [address] [place], [address] RBC Normal 0-5 [facility] Comment on above: Order Comment: CLEAN CATCH Result Comment: PT D EP ER ED.M Performed By: #### L 400.0001 #### [facility] [address] [place], [address] SP.GR. DIPSTX Normal 1.002-1.030 [facility] Comment on above: Order Comment: CLEAN CATCH Result Comment: PT D EP ER ED.M Performed By: #### L 400.0001 #### [facility] [address] [place], [address] UR Preservative Normal [facility] Comment on above: Order Comment: CLEAN CATCH Result Comment: PT D EP ER ED.M Performed By: #### L 400.0001 #### [facility] [address] [place], [address] UROBILI Normal Normal [facility] Comment on above: Order Comment: CLEAN CATCH Result Comment: PT D EP ER ED.M Performed By: #### L 400.0001 #### [facility] [address] [place], [address] WBC Normal 0-5 [facility] Comment on above: Order Comment: CLEAN CATCH Result Comment: PT D EP ER ED.M Performed By: #### L 400.0001 #### [facility] [address] [place], [address] Abdomen/Pelvis W IV Cont ONL Yon 08-26-2024 Abdomen/Pelvis W IV Cont ONLY [facility] Imaging Services [address] [place] [address] Abdomen/Pelvis W IV Cont ONLY MR#: [id number] Acct: [id number] Name: PAT KNIGHT Rep #: [id number] : 1980 F 44 From: Navi Graham MD PCP: Dr. Maile Norman MD Status: REG ER Study: Abdomen/Pelvis W IV Cont ONLY Date of Exam: Exam# [id number] Ordering Dr: Navi Cruz PROCEDURE: ABDOMEN/PELVIS W IV CONT ONLY REASON FOR EXAM: Abdominal pain TECHNIQUE: Abdomen and pelvis CT with intravenous contrast. COMPARISON: 02/27/2024. FINDINGS: Lung bases: Clear Liver: Diffuse fatty infiltration. Liver is enlarged Gallbladder: Unremarkable. Spleen: Unremarkable. Pancreas: Unremarkable. Adrenals: Unremarkable. Kidneys: Unremarkable. Bladder: Unremarkable. Reproductive Organs: Unremarkable. Bowel: Unremarkable. Appendix: Normal. Lymph nodes: No suspicious lymph node enlargement. Vasculature: Mild diffuse atherosclerotic calcifications are noted. Peritoneum / Retroperitoneum: No ascites. No free air. Bones: Unremarkable. CT/Abdomen/Pelvis W IV Cont ONLY IMPRESSION: 1. No acute or significant CT abnormality in the abdomen and pelvis 2. Hepatic steatosis and hepatomegaly One or more dose reduction techniques were used (e.g., Automated exposure control, adjustment of the mA and/or kV according to patient size, use of iterative reconstruction technique). Reading [facility] CC: LISSA Cruz; Dr. Maile Norman MD Behaviour Support Teacher: Signed Normal [facility] CBC W/Diff, Automatedon 03-0 Absolute Lymph 1.12 X10 3/uL Normal 0.83-4.51 [facility] Comment on above: Performed By: #### L 100.0100, L501.2450, L500.4050, L700.6800 #### [facility] [address] [place], [place], [id number] ([address] Absolute Neut 19.4 X10 3/uL High 2.0-7.7 [facility] Comment on above: Performed By: #### L 100.0100, L501.2450, L500.4050, L700.6800 #### [facility] [address] [place], [address] Basophils/100 WBC (Bld) 0.3 % Normal 0-1 [facility] Comment on above: Performed By: #### L 100.0100, L501.2450, L500.4050, L700.6800 #### [facility] [address] [place], [address] Eosinophils/100 WBC (Bld) 0.3 % Normal 0-5 [facility] Comment on above: Performed By: #### L 100.0100, L501.2450, L500.4050, L700.6800 #### [facility] [address] [place], [address] Erythrocyte distribution width (RBC) [Ratio] 12.7 % Normal 11.6-14.6 [facility] Comment on above: Performed By: #### L 100.0100, L501.2450, L500.4050, L700.6800 #### [facility] [address] [place], [address] Hematocrit (Bld) [Volume fraction] 50.4 % High 37-47 [facility] Comment on above: Performed By: #### L 100.0100, L501.2450, L500.4050, L700.6800 #### [facility] [address] [place], [address] Hemoglobin (Bld) [Mass/Vol] 17.4 g/dL High 12.0-15.0 [facility] Comment on above: Performed By: #### L 100.0100, L501.2450, L500.4050, L700.6800 #### [facility] [address] [place], [address] IG% 0.400 Normal 0.0-0.9 [facility] Comment on above: Result Comment: IG% - Immature Granulocytes (promyelocytes, myelocytes and metamyelocytes) > 1% indicates that a LEFT SHIFT is Present. Performed By: #### L 100.0100, L501.2450, L500.4050, L700.6800 #### [facility] [address] [place], [address] Lymphocytes/100 WBC (Bld) 5.2 % Low 19-41 [facility] Comment on above: Performed By: #### L 100.0100, L501.2450, L500.4050, L700.6800 #### [facility] [address] [place], [address] MCH (RBC) [Entitic mass] 32.3 pg High 27.0-32.0 [facility] Comment on above: Performed By: #### L 100.0100, L501.2450, L500.4050, L700.6800 #### [facility] [address] [place], [address] MCHC (RBC) [Mass/Vol] 34.5 g/dL Normal 32-36 [facility] Comment on above: Performed By: #### L 100.0100, L501.2450, L500.4050, L700.6800 #### [facility] [address] [place], [address] MCV (RBC) [Entitic vol] 93.7 fL Normal 81-99 [facility] Comment on above: Performed By: #### L 100.0100, L501.2450, L500.4050, L700.6800 #### [facility] [address] [place], [address] Monocytes/100 WBC (Bld) 3.3 % Normal 0-10 [facility] Comment on above: Performed By: #### L 100.0100, L501.2450, L500.4050, L700.6800 #### [facility] [address] [place], [address] Neutrophils/100 WBC (Bld) 90.5 % High 47-70 [facility] Comment on above: Performed By: #### L 100.0100, L501.2450, L500.4050, L700.6800 #### [facility] [address] [place], [address] Nucleated RBC (Bld) [#/Vol] 0 10*3/uL Normal 0-5 [facility] Comment on above: Performed By: #### L 100.0100, L501.2450, L500.4050, L700.6800 #### [facility] [address] [place], [address] Platelet mean volume (Bld) [Entitic vol] 9.4 fL Normal 6.2-12.0 [facility] Comment on above: Performed By: #### L 100.0100, L501.2450, L500.4050, L700.6800 #### [facility] [address] [place], [address] Platelets (Bld) [#/Vol] 414 10*3/uL Normal 150-450 [facility] Comment on above: Performed By: #### L 100.0100, L501.2450, L500.4050, L700.6800 #### [facility] [address] [place], [address] RBC (Bld) [#/Vol] 5.38 10*6/uL Normal 4.2-5.4 [facility] Comment on above: Performed By: #### L 100.0100, L501.2450, L500.4050, L700.6800 #### [facility] [address] [place], [address] RDW SD 43.9 fl Normal 35.1-43.9 [facility] Comment on above: Performed By: #### L 100.0100, L501.2450, L500.4050, L700.6800 #### [facility] [address] [place], [address] WBC (Bld) [#/Vol] 21.5 10*3/uL High 4.4-11.0 [facility] Comment on above: Performed By: #### L 100.0100, L501.2450, L500.4050, L700.6800 #### [facility] [address] [place], [address] Comprehensive Metabolic Prof ilon 08-26-2024 Albumin [Mass/Vol] 5.0 g/dL Normal 3.5-5.0 [facility] Comment on above: Performed By: #### L 100.0100, L501.2450, L500.4050, L700.6800 #### [facility] [address] [place], [address] Albumin/Globulin [Mass ratio] 1.5 {ratio} Normal 0.9-2.4 [facility] Comment on above: Performed By: #### L 100.0100, L501.2450, L500.4050, L700.6800 #### [facility] [address] [place], [address] ALK PHOS 83 U/L Normal 35-104 [facility] Comment on above: Performed By: #### L 100.0100, L501.2450, L500.4050, L700.6800 #### [facility] [address] [place], [address] ALT [Catalytic activity/Vol] 11 U/L Normal <=34 [facility] Comment on above: Performed By: #### L 100.0100, L501.2450, L500.4050, L700.6800 #### [facility] [address] [place], [address] Anion gap [Moles/Vol] 15 mmol/L Normal 5-15 [facility] Comment on above: Performed By: #### L 100.0100, L501.2450, L500.4050, L700.6800 #### [facility] [address] [place], [address] AST [Catalytic activity/Vol] 25 U/L Normal <=31 [facility] Comment on above: Result Comment: Hemo lysis present, Results??could be affected. ?? Performed By: #### L 100.0100, L501.2450, L500.4050, L700.6800 #### [facility] [address] [place], [address] Bilirubin [Mass/Vol] 0.50 mg/dL Normal 0.00-1.30 [facility] Comment on above: Performed By: #### L 100.0100, L501.2450, L500.4050, L700.6800 #### [facility] [address] [place], [address] BUN/CRE 9.2 RATIO Low 10-20 [facility] Comment on above: Performed By: #### L 100.0100, L501.2450, L500.4050, L700.6800 #### [facility] [address] [place], [address] Calcium [Mass/Vol] 9.4 mg/dL Normal 7.6-11.0 [facility] Comment on above: Performed By: #### L 100.0100, L501.2450, L500.4050, L700.6800 #### [facility] [address] [place], [address] Chloride [Moles/Vol] 104 mmol/L Normal 96-108 [facility] Comment on above: Performed By: #### L 100.0100, L501.2450, L500.4050, L700.6800 #### [facility] [address] [place], [address] CO2 [Moles/Vol] 25.8 mmol/L Normal 22.0-29.0 [facility] Comment on above: Performed By: #### L 100.0100, L501.2450, L500.4050, L700.6800 #### [facility] [address] [place], [address] Creatinine [Mass/Vol] 0.93 mg/dL Normal 0.70-1.20 [facility] Comment on above: Performed By: #### L 100.0100, L501.2450, L500.4050, L700.6800 #### [facility] [address] [place], [address] ECRCL 70.14 ml/min Normal 50-250 [facility] Comment on above: Performed By: #### L 100.0100, L501.2450, L500.4050, L700.6800 #### [facility] [address] [place], [address] GFR/1.73 sq M.predicted among non-blacks MDRD (S/P/Bld) [Vol rate/Area] 79 mL/min/{1.73_m2} Normal >60 [facility] Comment on above: Result Comment: mL/m in/1.73m2 CKD-EPI Creatinine Equation (2020) Performed By: #### L 100.0100, L501.2450, L500.4050, L700.6800 #### [facility] [address] [place], [address] Globulin (S) [Mass/Vol] 3.3 g/dL Normal 2.2-4.2 [facility] Comment on above: Performed By: #### L 100.0100, L501.2450, L500.4050, L700.6800 #### [facility] [address] [place], [address] Glucose [Mass/Vol] 129 mg/dL High 70-99 [facility] Comment on above: Performed By: #### L 100.0100, L501.2450, L500.4050, L700.6800 #### [facility] [address] [place], [address] Potassium [Moles/Vol] 3.9 mmol/L Normal 3.3-5.1 [facility] Comment on above: Result Comment: Hemo lysis present, Results??could be affected. ?? Performed By: #### L 100.0100, L501.2450, L500.4050, L700.6800 #### [facility] [address] [place], [address] Sodium [Moles/Vol] 145 mmol/L Normal 133-145 [facility] Comment on above: Performed By: #### L 100.0100, L501.2450, L500.4050, L700.6800 #### [facility] [address] [place], [address] T PROT 8.3 g/dL Normal 5.9-8.4 [facility] Comment on above: Performed By: #### L 100.0100, L501.2450, L500.4050, L700.6800 #### [facility] [address] [place], [address] Urea nitrogen [Mass/Vol] 9 mg/dL Normal 4-19 [facility] Comment on above: Performed By: #### L 100.0100, L501.2450, L500.4050, L700.6800 #### [facility] [address] [place], [address] Emergency Department Summary on 08-26-2024 Emergency Department Summary [facility] Medical Records Department [address] [place] [address] Emergency Department Summary 08/26/24 MR#: [id number] Acct: [id number] Name: JENNYPARISPAT MARSHALL Rep #: [id number] : 1980 44 From: Xavi Biggs MD PCP: Dr. Maile Norman MD Status:REG ER Location: ED HPI History of Present Illness Chief Complaint: Abd Pain Narrative Narrative: Patient is a 44-year-old female with history of anxiety, depression who presents to the emergency department for abdominal pain, nausea vomiting diarrhea, back pain. Pay states it started suddenly around 9 in the morning. She states she feels chills, significant abdominal cramping. She states she cannot stop pooping and vomiting. Patient denies any blood in her stool or vomit. Patient only states that she had a ovarian surgery on her abdomen. This was several years ago. Here for evaluation. [facility] Medical History Marijuana use Right rotator cuff tear Wears partial dentures Hepatitis Smoker History of echocardiogram History of stress test Cardiology follow-up encounter History of CHF (congestive heart failure) Esophageal tear Anxiety Home Medications ???Medication ???Instructions ???Recorded ???Last Taken ???Type trazodone 100 mg tablet 100 mg PO QHS 01/03/17 07/18/24 Hi story inhalational spacing device 10/09/23 Unknown History (B[employer] MDI Spacer) meloxicam 15 mg tablet 15 mg PO DAILY 01/01/24 07/18/24 H istory albuterol sulfate 90 mcg/actuation 2 puff inhalation Q4H PRN PRN 07/18/24 History aerosol inhaler wheezing lidocaine 5 % topical patch 1 patch topical Q24H 02/27/24 Unkn own History tizanidine 4 mg tablet 4 mg PO Q6H PRN PRN muscle 4 Unknown History relaxation dicyclomine 20 mg tablet 20 mg PO TID #20 tabs 08/26/24 Unk nown Rx ondansetron 4 mg disintegrating 4 mg PO Q8H PRN PRN Nausea #10 tab s 08/26/24 Unknown Rx tablet Allergy/AdvReac Type Severity Reaction Status Date / Time escitalopram (From Lexapro) Allergy Other Verified 08/26/24 19:25 lamotrigine (From Lamictal) Allergy Hives Verified 08/26/24 19:25 nitrofurantoin (From Allergy Unknown Verified 08/26/24 19:25 Macrobid) nitrofurantoin Allergy Unknown Verified 08/26/24 19:25 macrocrystalline (From Macrobid) codeine AdvReac Nausea Verified 08/26/24 19:25 Family History Mother Anxiety Hypertension High cholesterol Diabetes Depression Father Hypertension Surgical History History of tubal ligation History of lumpectomy of right breast History of repair of rotator cuff Hx of surgical procedure Hx of removal of ovary History of tonsillectomy and adenoidectomy Social History household members: family housing: house Smoking Status: Current every day smoker tobacco type: cigarettes substance use type: marijuana additional social history: pt does not vape, does not take aspirin, pt does report using marijuana daily,does uses edibles on occassion, does use ibuprofen as needed. ROS ROS ED ROS Narrative Constitutional: Negative for fever, weight loss, weakness. Positive for chills Eyes: Negative for vision loss, vision change, double vision ENT: Negative for any sore throat, ear pain, congestion Cardiovascular: Negative for any chest pain, tightness, palpitations Respiratory: Negative for any cough, sputum production, hemoptysis, dyspnea, dyspnea on exertion, orthopnea Gastrointestinal: Negative for any constipation, blood in stool, blood in vomit. Positive for abdominal pain she describes as severe cramping, nausea and vomiting, diarrhea : Negative for any urinary frequency, dysuria, retention, blood in urine Muscle skeletal: Negative for any neck pain, back pain Neurological: Negative for any headache, syncope, dizziness Skin: Negative for any rashes, itching, abrasions, lacerations Psychiatric: Negative for any depression, anxiety, stress, suicidal ideation, homicidal ideation Hematologic: Negative for any excessive bruising, easy bleeding EXAM Physical Exam Narrative Exam Narrative: Vital signs reviewed. Patient does appear to be in mild distress secondary to abdominal pain. She did have some dry heaving on my initial examination. HEET: Head normocephalic atraumatic, TMs clear bilaterally. Posterior pharynx is clear, dry mucous membranes. Nares clear bilaterally. Neck: Supple with no lymphadenopathy or tenderness. No signs of meningismus. Cardiac: Regular rate and rhythm no murmurs gallops or rubs, equal peripheral pulses bilaterally. Respiratory: Lungs clear to auscultation bilaterally. (more content not included)... Normal [facility] Lipaseon 08-26-2024 Lipase [Catalytic activity/Vol] 79 U/L High 13-75 [facility] Comment on above: Result Comment: Padma gee note: LIPASE revised reference range effective 22. New Lipase methodology. Expected to produce lower values than the previous assay method. NEW Reference Range: 13 - 75 U/L Performed By: #### L 100.0100, L501.2450, L500.4050, L700.6800 #### [facility] [address] [place], [address] M100.678on 08-26-2024 M100.678 Pending SARS-CoV-2 (COVID 19) Negative INFLUENZA A Negative INFLUENZA B Negative RSV PCR Negative Normal [facility] Comment on above: Performed By: #### M 100.678 ####[facility] [id number] [place], [address] ,Serum,hCG Quali.on 08-26-2024 HCG, SERUM QUAL Negative Normal [facility] Comment on above: Performed By: #### L 700.6800 #### [facility] [address] [place], [address] Urinalysis, Completeon 08-26 AMORPHOUS 1+ URATE Normal [facility] Comment on above: Order Comment: COLLE CTOR TO SPECIFY Performed By: #### L 400.0001 #### [facility] [address] [place], [address] EPI,SQUAMOUS 0-5 SEEN Normal 5-10 [facility] Comment on above: Order Comment: COLLE CTOR TO SPECIFY Performed By: #### L 400.0001 #### [facility] [address] [place] [id number] RBC 0-5 SEEN Normal 0-5 [facility] Comment on above: Order Comment: COLLE CTOR TO SPECIFY Performed By: #### L 400.0001 #### [facility] [address] [place], [address] WBC 0-5 SEEN Normal 0-5 [facility] Comment on above: Order Comment: COLLE CTOR TO SPECIFY Performed By: #### L 400.0001 #### [facility] [address] [place], [address] BACTERIA 0 SEEN Normal None Seen [facility] Comment on above: Order Comment: COLLE CTOR TO SPECIFY Performed By: #### L 400.0001 #### [facility] [address] [place], [address] Mucus Ql (Urine sed) 0 SEEN Normal [facility] Comment on above: Order Comment: COLLE CTOR TO SPECIFY Performed By: #### L 400.0001 #### [facility] [address] [place], [address] CNPNon 08-18-2024 CNPN Normal [facility] Plastic Surgery Visit Report on 08-14-2024 Plastic Surgery Visit Report [facility] Plastic Reconstructive Surgery [address] [place], [place] [address] OFFICE VISIT Date of Service: 08/14/24 MR#: [id number] Acct: [id number] Name: PAT KNIGHT Rep #: [id number] : 1980 Provider: Dr. Constanza esposito MD Age/Sex: 44/F Location: [facility] [place] Status: Signed Intake Vital Signs 07/20/24 21:43 08/14/24 10:57 08/14/24 15:26 Height 5 ft 5 in 5 ft 5 in 5 ft 5 in Weight: 131 lb BMI 21.8 BP 104/53 L Blood Pressure Location Lt brachial Position Sitting Respiration 18 Pulse 91 Temp 99.5 F H Temp Source Temporal Pulse Oximetry (%) 96 Oxygen Delivery Method room air Intake Visit Reasons: POST OP Chief Complaint: post op Is patient in pain?: No Allergies escitalopram (From Lexapro) Allergy (Verified 08/14/24 15:27) Other lamotrigine (From Lamictal) Allergy (Verified 08/14/24 15:27) Hives nitrofurantoin (From Macrobid) Allergy (Verified 08/14/24 15:27) Unknown nitrofurantoin macrocrystalline (From Macrobid) Allergy (Verified 08/14/24 15:27) Unknown codeine Adverse Reaction (Verified 08/14/24 15:27) Nausea Medications ???Medication ???Instructions ???Recorded ???Confirmed ???Type trazodone 100 mg tablet 100 mg PO QHS 01/03/17 08/14/24 Hi story inhalational spacing device 10/09/23 08/14/24 History (BreatheRite MDI Spacer) meloxicam 15 mg tablet 15 mg PO DAILY 01/01/24 08/14/24 H istory albuterol sulfate 90 mcg/actuation 2 puff inhalation Q4H PRN PRN 08/14/24 History aerosol inhaler wheezing lidocaine 5 % topical patch 1 patch topical Q24H 02/27/2407/28 History tizanidine 4 mg tablet 4 mg PO Q6H PRN PRN muscle 4 08/14/24 History relaxation Nurse's Note: pt here post op left forearm lesion Subjective Details: Pat comes in for recheck of the neoplasm removed from her left forearm. She denies any problems. She states the area does not hurt like it did in the past. Objective Details: Incisions well-approximated. A small extruding suture at the distal end of the incision was debrided. She states that she no longer has pain at the site. There is no evidence of infection. I applied Aquaphor and showed the patient how to massage this in to reduce scar formation. The path report was reviewed with her. No further intervention is necessary. Although the ultrasound had demonstrated 2 small foreign bodies, only 1 is mentioned in the pathology. MICROSCOPIC DIAGNOSIS Left forearm cyst, excision: Acute and chronic inflammation, abscess formation and foreign body giant cell reaction. Negative for malignancy. See comment. COMMENT A foreign body (splinter) is noted in the area of inflammation and abscess formation. Clinical correlation and appropriate follow up are necessary. I will see her back as needed and she is encouraged to call with any problems. Coding Level of Care Code Global Post Op Diagnoses Abscess of arm, left L02.414 Foreign body reaction of the skin L92.3 [facility] Medical History Marijuana use Right rotator cuff tear Wears partial dentures Hepatitis Smoker History of echocardiogram History of stress test Cardiology follow-up encounter History of CHF (congestive heart failure) Esophageal tear Anxiety Surgical History History of tubal ligation History of lumpectomy of right breast History of repair of rotator cuff Hx of surgical procedure Hx of removal of ovary History of tonsillectomy and adenoidectomy Family History Mother Anxiety Hypertension High cholesterol Diabetes Depression Father Hypertension Social History household members: family housing: house Smoking Status: Current every day smoker tobacco type: cigarettes substance use type: marijuana additional social history: pt does not vape, does not take aspirin, pt does report using marijuana daily,does uses edibles on occassion, does use ibuprofen as needed. Assessment and Plan (No Qualifiers) Assessment and Plan (1) Abscess of arm, left: Status: Acute (2) Foreign body reaction of the skin: Status: Acute Plan Details Additional Comments: I will see her back as needed 08/14/24 1640 Date Constanza Cordova MD Cosigner Signature: Date (if applicable) CC: [facility] Afshin 08-08-2024 CNPN [facility] Large Joint Arthro/Inj: R sh oulder jointon 08-03-2024 Louis Valencia MD 08/03/2024 3:34 PM Large Joint Arthro/Inj: R shoulder joint 08/03/2024 2:59 PM The procedure site was prepped in the usual sterile fashion. Site: R shoulder joint Medications: 80 mg triamcinolone acetonide 40 mg/mL Anesthetics: 4 mL bupivacaine (PF) 0.25 % (2.5 mg/mL) Outcome: Tolerated well, no immediate complications Post-injection instructions were reviewed with the patient and the patient voiced understanding of these instructions. [facility] CNOVon 07-31-2024 CNOV [facility] CNOVon 07-27-2024 CNOV Normal [facility] Emergency Department Summary on 07-20-2024 Emergency Department Summary [facility] Medical Records Department [address] [place] [address] Emergency Department Summary 07/20/24 MR#: [id number] Acct: [id number] Name: PAT KNIGHT Rep #: [id number] : 1980 44 From: Cesar Meneses DO PCP: Dr. Maile Norman MD Status:REG ER Location: ED HPI History of Present Illness Chief Complaint: Upper Extremity Injury Informant: patient Narrative Narrative: Patient is a 44-year-old female with past medical history of anxiety and depression as well as chronic pain who takes Percocet daily. She states that yesterday she had to have a minor surgery to remove a cyst with foreign object in it in her left forearm. She states that it was uneventful and she has been taking her home medications but despite doing this the pain has persisted. She states that she believes that her son's friends got into her pain medication as she is currently out and cannot get it refilled for another few days. Therefore since she has been taking [id number] medication as well as her prescription medication without symptom improvement she presents for pain control. [facility] Medical History Marijuana use Right rotator cuff tear Wears partial dentures Hepatitis Smoker History of echocardiogram History of stress test Cardiology follow-up encounter History of CHF (congestive heart failure) Esophageal tear Anxiety Home Medications ???Medication ???Instructions ???Recorded ???Last Taken ???Type trazodone 100 mg tablet 100 mg PO QHS 01/03/17 07/18/24 History inhalational spacing device 10/09/23 Unknown History (BreatheRite MDI Spacer) meloxicam 15 mg tablet 15 mg PO DAILY 01/01/24 07/18/24 History albuterol sulfate 90 mcg/actuation 2 puff inhalation Q4H PRN PRN 01/06/24 07/18/24 History aerosol inhaler wheezing lidocaine 5 % topical patch 1 patch topical Q24H 02/27/24 Unknown History tizanidine 4 mg tablet 4 mg PO Q6H PRN PRN muscle 02/27/24 Unknown History relaxation cephalexin 500 mg capsule 500 mg PO BID 7 days #14 caps 07/19/24 Unknown Rx Allergy/AdvReac Type Severity Reaction Status Date / Time escitalopram (From Lexapro) Allergy Other Verified 07/20/24 21:44 lamotrigine (From Lamictal) Allergy Hives Verified 07/20/24 21:44 nitrofurantoin (From Allergy Unknown Verified 07/20/24 21:44 Macrobid) nitrofurantoin Allergy Unknown Verified 07/20/24 21:44 macrocrystalline (From Macrobid) codeine AdvReac Nausea Verified 07/20/24 21:44 Family History Mother Anxiety Hypertension High cholesterol Diabetes Depression Father Hypertension Surgical History History of tubal ligation History of lumpectomy of right breast History of repair of rotator cuff Hx of surgical procedure Hx of removal of ovary History of tonsillectomy and adenoidectomy Social History household members: family housing: house Smoking Status: Current every day smoker (Patient did smoke today.) tobacco type: cigarettes substance use type: marijuana additional social history: pt does not vape, does not take aspirin, pt does report using marijuana daily,does uses edibles on occassion, does use ibuprofen as needed. ROS ROS ED Constitutional Constitutional ED: Denies chills or fever(s) Eyes Eyes: Denies change in vision ENT ENT ED: Denies sore throat Cardiovascular Cardiovascular: Denies chest pain Respiratory/Chest Respiratory/Chest: Denies cough or dyspnea Gastrointestinal Gastrointestinal: Denies abdominal pain, diarrhea, nausea or vomiting Genitourinary Genitourinary ED: Denies dysuria Musculoskeletal Musculoskeletal: Reports other Details: Left forearm pain Integumentary Reports other Details: Left forearm wound Neurologic Neurologic: Denies headache(s), paresthesias or weakness Psychiatric Psychiatric: Reports anxiety and depression Hematologic/Lymphatic Hematologic/Lymphatic : Denies easy bleeding or easy bruising EXAM Physical Exam Const Vital Signs: 07/20/24 21:43 Temperature 98.1 F Temperature Source Oral Pulse Rate 92 Respiratory Rate 18 Blood Pressure 93/67 Blood Pressure Mean 75 Pulse Ox 100 Oxygen Delivery Method Room Air Positive well nourished and well developed General Appearance ED: well developed HEENT HEENT Narrative: Normocephalic atraumatic Eyes PERRL and EOMs intact bilaterally Neck full ROM and supple Resp normal respiratory effort and clear to auscultation bilaterally Cardio regular rate and regular rhythm Extremity Extremity Narrative: Left upper extremity is neurovascularly intact; AIN/ (more content not included)... Normal [facility] Discharge Instructionon 06-28 Discharge Instruction [facility] Medical Records Department [address] [place] [address] Instructions for Home/Discharge Instructions 07/19/24 1251 MR#: [id number] Acct: [id number] Name: PAT KNIGHT Rep #: [id number] : 1980 44 From: Constanza Cordova MD PCP: Dr. Maile Norman MD Status:REG [facility] Discharge Instructions Dressing / Incision Additional Dressing/Incision Instructions:: Keep your arm elevated is much as possible to decrease swelling and bruising. Take the oral antibiotic (Keflex) 2 times a day until finished. Keep the dressing dry and intact until seen in the office. Follow Up Care Please Follow Up With: Constanza Cordova MD When: In 1 week Test Results: Test results from this visit will be discussed in further detail at your follow-up appointment, if applicable. Discharge Plan Admission Attending Provider: Constanza Cordova Primary Care Provider: Maile Norman Instructions Print Language: Jordanian Discharge Orders/Prescriptions Prescriptions: New cephalexin 500 mg capsule 500 mg PO BID 7 Days Qty: 14 0RF No Action trazodone 100 MG tablet 100 mg PO QHS (DME) BreatheRite MDI Spacer Spacer MISCELLANEOUS X1 meloxicam 15 mg tablet 15 mg PO DAILY albuterol sulfate 90 mcg/actuation HFA aerosol inhaler 2 puff inhalation Q4H PRN PRN (Reason: wheezing) lidocaine 5 % adhesive patch,medicated 1 patch topical Q24H Rx Instructions: WEAR PATCH FOR 12 HOURS AND THEN REMOVE FOR 12 HOURS BEFORE APPLYING A NEW ONE tizanidine 4 mg tablet 4 mg PO Q6H PRN PRN (Reason: muscle relaxation) Referrals / Follow Up: Maile Norman MD [Primary Care Provider] - Disposition Disposition (needs filled in before D/C Order can be placed): Home, Self Care 07/19/24 1254 Constanza Cordova MD CC: Dr. Maile Norman MD Signed [facility] MR/POSTOP.[facility] 07-19-2024 MR/POSTOP.[facility] Medical Records Department [address] [place] [address] Anesthesia Postop Eval I 07/19/24 1257 MR#: [id number] Acct: [id number] Name: PAT KNIGHT Rep #: [id number] : 1980 44 From: Trinity Wright CRNA PCP: Dr. Maile Norman MD Status:REG [facility] Y Race: C Location: [place] [address] Anesthesia: Postop Eval I Current Vital Signs Temperature: 97.3 F Pulse Rate: 83 Blood Pressure: 136/80 Respiratory Rate: 20 Pulse Ox: 100 Oxygen Delivery Method: Room Air Assessment Airway patent: Yes Spontaneous unlabored respirations: Yes Mental status: Awake nausea: No Vomiting: No Anesthesia Complication: No Fluid Hydration Crystalloid volume administer (ml): 1,200 Total IV fluid infused: 1,200 Progress Note Anesthesia document: Postop Eval 1 completed: Yes 07/19/24 1258 Date Trinity Wright STABILIZING MACHINE OPERATOR Cosigner Signature: Date CC: Signed Normal [facility] MR/[id number] 07-19-2024 MR/POSTOPAN2 [facility] Medical Records Department [address] [place] [address] Anesthesia Postop Eval II 07/19/241913 MR#: [id number] Acct: [id number] Name: PAT KNIGHT Rep #: [id number] : 1980 44 From: Samy Rae MD PCP: Dr. Maile Norman MD Status:[facility] Y Race: C Location: [facility] Anesthesia Postop Eval I Sum Postop Eval Completion status Anesthesia document: Postop Eval 1 completed: Yes Anesthesia Postop Eval I Summary Anesthesia Postop Eval I Summary: Anesthesia Postop Eval I: Assessment Summary Airway patent Yes 07/19/24 12:58 STABILIZING MACHINE OPERATOR.JSWI Spontaneous unlabored Yes 07/19/24 12:58 STABILIZING MACHINE OPERATOR.JSWI respirations Mental status Awake 07/19/24 12:58 STABILIZING MACHINE OPERATOR.JSWI nausea No 07/19/24 12:58 STABILIZING MACHINE OPERATOR.JSWI Vomiting No 07/19/24 12:58 STABILIZING MACHINE OPERATOR.JSWI Anesthesia Postop Eval I: Fluid Summary Crystalloid volume administer 1,200 07/19/24 12:58 STABILIZING MACHINE OPERATOR.JSWI (ml) Colloids volume administered ( ml) Blood Product volume administered (ml) Total IV fluid infused 1,200 07/19/24 12:58 STABILIZING MACHINE OPERATOR.JSWI Anesthesia Postop Eval I: Summary Notes Anesthesia Complication No 07/19/24 12:58 STABILIZING MACHINE OPERATOR.JSWI Anesthesia Complication Comment: Post-operative progress note Anesthesia: Postop Eval II Evaluation Mental status: Awake and Calm Pain Level: 1 nausea: No Vomiting: No Complications Anesthesia Complication: No 07/19/241913 Samy Rae MD Cosigner Signature: Date CC: Signed Normal [facility] Operative Reporton Operative Report [facility] Medical Records Department [address] [place] [address] Operative Report 07/19/24 1254 MR#: [id number] Acct: [id number] Name: PAT KNIGHT Rep #: [id number] : 1980 44 From: Constanza Corodva MD PCP: Dr. Maile Norman MD Status:[facility] Location: [place] [address] Problems Associated Problem List Diagnoses (1) Neoplasm of uncertain behavior of connective and other soft tissue: Operative Report (Standard) Operative Information Date of Procedure: 07/19/24 Pre-Operative Diagnosis: Subcutaneous cyst left forearm Post-Operative Diagnosis: Same Surgery/Procedure Performed: Excision cyst left forearm (3.0 cm) principal mechanical engineer: No Type of Anesthesia: General RN Documented Start/Stop Times: Operation Date: 07/19/24 09:20 Case Time Into Pre-Op 07/19/24 07:56 Out of Pre-Op 07/19/24 11:37 Anesthesia Start 07/19/24 11:40 Into Room 07/19/24 11:40 Procedure Start 07/19/24 12:04 Procedure End 07/19/24 12:47 Into Recovery 07/19/24 12:51 Procedure Start Time: 12:04 Procedure Stop Time: 12:47 Select all DRAINS/GRAFTS/IMPLANT S that apply: None Estimated Blood Loss: Minimal Specimen collected: Yes Description of specimen(s) removed: Scar and cystic lesion left forearm Description of surgery: The patient presents status post trauma to her left arm several months ago resulting in a wound which was attended in the ER. Subsequent to this, she has slowly developed a cystic type lesion in the area which is tender to touch. She presents for excision of the cyst and submission for pathologic evaluation. Mention was made on ultrasound evaluation of possible foreign body. The patient is brought to the operating room and placed under general anesthesia in the supine position. The left arm is prepped and draped in usual sterile fashion. We initially began with incising an elliptical incision around the apex of the cyst. Dissection continues subcutaneously down to fascia. A portion of a possible foreign body was identified along with a cystic type lesion. These are removed and passed off the operative field to be sent to pathology. Hemostasis is controlled with cautery. The site is then closed in layers using Monocryl suture in the subcutaneous tissue and dermis. Skin edges are approximated with a running subcuticular Monocryl suture. Further refinement of the closure is done with a fast-absorbing gut. Xeroform gauze and a Coban wrap were used for dressing. She tolerated the procedure well was taken to the recovery area in an awake and stable condition. Needle and sponge counts are correct. Surgical Findings: As above Complications Complications: No Admit VTE Documentation VTE Mechan Device Prophylaxis: SCD's 07/19/24 1253 Cosigner Signature (if applicable): CC: Dr. Maile Norman MD; Dr. Constanza Cordova MD Signed Normal [facility] Surgery Specimen Level IIIon 07-19-2024 Surgery Specimen Level III -------- Patient Age/Sex Location Account Attending Physician -------- PAT KNIGHT 44/F [facility] [id number] Dr. Constanza Cordova MD -------- Specimen: [id number] Received: 07/19/24 Status: JEAN Bro Num: [id number] Spec Type: Cyst Subm Dr: Dr. Constanza Cordova MD HEADER OPERATION: Excision cyst left forearm (2cm) PRE-OP DIAGNOSIS: Cyst left forearm TISSUE SUBMITTED: Cyst, left forearm -------- MICROSCOPIC DIAGNOSIS Left forearm cyst, excision: Acute and chronic inflammation, abscess formation and foreign body giant cell reaction. Negative for malignancy. See comment. . 07/20/2024 COMMENT A foreign body (splinter) is noted in the area of inflammation and abscess formation. Clinical correlation and appropriate follow up are necessary. MICROSCOPIC DESCRIPTION Slides are reviewed. GROSS DESCRIPTION Received in fixative is one container labeled with the patient's name and designated Cyst, left forearm. The specimen consists of a piece of castanon-white skin ellipse measuring 1.5 x 1cm and up to 0.2cm in thickness. The specimen is inked, serially sectioned and submitted entirely in one cassette. . 07/19/2024 TC:2 CPT:05805 -------- Patient Age/Sex Location Account Attending Physician -------- PAT KNIGHT 44/F [facility] [id number] Dr. Constanza Cordova MD -------- Signed (signature on file) Dr. Dusty Armstrong MD 07/20/24 1244 -------- Normal [facility] Comment on above: Performed By: #### P SUIII ####[facility] [address] [place], [place], [address] CNPNon 07-16-2024 CNPN [facility] CBC W Auto Differential pane l (Bld)on 07-13-2024 Basophils (Bld) [#/Vol] 0.10 10*3/uL [facility] Basophils/100 WBC (Bld) 1.0 % [facility] Differential cell count method Nom (Bld) Auto [facility] Eosinophils (Bld) [#/Vol] 0.27 10*3/uL [facility] Eosinophils/100 WBC (Bld) 2.7 % [facility] Erythrocyte distribution width (RBC) [Ratio] 12.2 % 11.5 - 15.0 % [facility] Hematocrit (Bld) [Volume fraction] 41.9 % 36.0 - 46.0 % [facility] Hemoglobin (Bld) [Mass/Vol] 14.2 g/dL 11.5 - 15.5 g/dL [facility] Immature granulocytes (Bld) [#/Vol] 0.03 10*3/uL [facility] Immature granulocytes/100 WBC (Bld) 0.3 % [facility] Lymphocytes (Bld) [#/Vol] 3.19 10*3/uL [facility] Lymphocytes/100 WBC (Bld) 32.4 % [facility] MCH (RBC) [Entitic mass] 32.1 pg 26.0 - 34.0 pg [facility] MCHC (RBC) [Mass/Vol] 33.9 g/dL 30.5 - 36.0 g/dL [facility] MCV (RBC) [Entitic vol] 94.6 fL 80.0 - 100.0 fL [facility] Monocytes (Bld) [#/Vol] 0.74 10*3/uL [facility] Monocytes/100 WBC (Bld) 7.5 % [facility] Neutrophils (Bld) [#/Vol] 5.52 10*3/uL [facility] Neutrophils/100 WBC (Bld) 56.1 % [facility] Nucleated RBC (Bld) [#/Vol] [facility] Nucleated RBC/100 WBC (Bld) [Ratio] 0.0 % /100 WBC [facility] Platelet mean volume (Bld) [Entitic vol] 9.6 fL 9.0 - 12.7 fL [facility] Platelets (Bld) [#/Vol] 308 10*3/uL [facility] RBC (Bld) [#/Vol] 4.43 10*6/uL 3.90 - 5.2 0 m/uL [facility] WBC (Bld) [#/Vol] 9.85 10*3/uL [facility] Basophils (Bld) [#/Vol] 0.10 10*3/uL Normal <0.11 [facility] Comment on above: Order Comment: Speci men Type: BLOOD SPECIMENOrdering Facility: [facility] Address: [address] [place] [address] Performed By: #### 5 7021-8 ####[facility] LABCLIA [id number] [place] [address] [place] Basophils/100 WBC (Bld) 1.0 % Normal [facility] Comment on above: Order Comment: Speci men Type: BLOOD SPECIMENOrdering Facility: [facility] Address: [address] [place] [address] Performed By: #### 5 7021-8 ####[facility] LABCLIA [id number] [place] [address] [place] Differential cell count method Nom (Bld) Auto Normal [facility] Comment on above: Order Comment: Speci men Type: BLOOD SPECIMENOrdering Facility: [facility] Address: [address] [place] [address] Performed By: #### 5 7021-8 ####[facility]CLIA [id number] [place] [address] [place] Eosinophils (Bld) [#/Vol] 0.27 10*3/uL Normal <0.46 [facility] Comment on above: Order Comment: Speci men Type: BLOOD SPECIMENOrdering Facility: [facility] Address: [address] [place] [address] Performed By: #### 5 7021-8 ####[facility]CLIA [id number] [place] [address] [place] Eosinophils/100 WBC (Bld) 2.7 % Normal [facility] Comment on above: Order Comment: Speci men Type: BLOOD SPECIMENOrdering Facility: [facility] Address: [address] [place] [address] Performed By: #### 5 7021-8 ####[facility]CLIA [id number] [place] [address] [place] Erythrocyte distribution width (RBC) [Ratio] 12.2 % Normal 11.5-15.0 [facility] Comment on above: Order Comment: Speci men Type: BLOOD SPECIMENOrdering Facility: [facility] Address: [address] [place] [address] Performed By: #### 5 7021-8 ####[facility]CLIA [id number] [place] [address] [place] Hematocrit (Bld) [Volume fraction] 41.9 % Normal 36.0-46.0 [facility] Comment on above: Order Comment: Speci men Type: BLOOD SPECIMENOrdering Facility: [facility] Address: [address] [place] [address] Performed By: #### 5 7021-8 ####[facility] LABIA [id number] [place] [address] [place] Hemoglobin (Bld) [Mass/Vol] 14.2 g/dL Normal 11.5-15.5 [facility] Comment on above: Order Comment: Speci men Type: BLOOD SPECIMENOrdering Facility: [facility] Address: [address] [place] [address] Performed By: #### 5 7021-8 ####[facility] LABIA [id number] [place] [address] [place] Immature granulocytes (Bld) [#/Vol] 0.03 10*3/uL Normal <0.10 [facility] Comment on above: Order Comment: Speci men Type: BLOOD SPECIMENOrdering Facility: [facility] Address: [address] [place] [address] Performed By: #### 5 7021-8 ####[facility] LABCLIA [id number] [place] [address] [place] Immature granulocytes/100 WBC (Bld) 0.3 % Normal [facility] Comment on above: Order Comment: Speci men Type: BLOOD SPECIMENOrdering Facility: [facility] Address: [address] [place] [address] Performed By: #### 5 7021-8 ####[facility] LABCLIA [id number] [place] [address] [place] Lymphocytes (Bld) [#/Vol] 3.19 10*3/uL Normal 1.00-4.00 [facility] Comment on above: Order Comment: Speci men Type: BLOOD SPECIMENOrdering Facility: [facility] Address: [address] [place] [address] Performed By: #### 5 7021-8 ####[facility] LABCLIA [id number] [place] [address] [place] Lymphocytes/100 WBC (Bld) 32.4 % Normal [facility] Comment on above: Order Comment: Speci men Type: BLOOD SPECIMENOrdering Facility: [facility] Address: [address] [place] [address] Performed By: #### 5 7021-8 ####[facility] LABCLIA [id number] [place] [address] [place] MCH (RBC) [Entitic mass] 32.1 pg Normal 26.0-34.0 [facility] Comment on above: Order Comment: Speci men Type: BLOOD SPECIMENOrdering Facility: [facility] Address: [address] [place] [address] Performed By: #### 5 7021-8 ####[facility] LABCLIA [id number] [place] [address] [place] MCHC (RBC) [Mass/Vol] 33.9 g/dL Normal 30.5-36.0 [facility] Comment on above: Order Comment: Speci men Type: BLOOD SPECIMENOrdering Facility: [facility] Address: [address] [place] [address] Performed By: #### 5 7021-8 ####[facility] [id number] [place] [address] [place] MCV (RBC) [Entitic vol] 94.6 fL Normal 80.0-100.0 [facility] Comment on above: Order Comment: Speci men Type: BLOOD SPECIMENOrdering Facility: [facility] Address: [address] [place] [address] Performed By: #### 5 7021-8 ####[facility] LABIA [id number] [place] [address] [place] Monocytes (Bld) [#/Vol] 0.74 10*3/uL Normal <0.87 [facility] Comment on above: Order Comment: Speci men Type: BLOOD SPECIMENOrdering Facility: [facility] Address: [address] [place] [address] Performed By: #### 5 7021-8 ####[facility] LABIA [id number] [place] [address] [place] Monocytes/100 WBC (Bld) 7.5 % Normal [facility] Comment on above: Order Comment: Speci men Type: BLOOD SPECIMENOrdering Facility: [facility] Address: [address] [place] [address] Performed By: #### 5 7021-8 ####[facility] LABIA [id number] [place] [address] [place] Neutrophils (Bld) [#/Vol] 5.52 10*3/uL Normal 1.45-7.50 [facility] Comment on above: Order Comment: Speci men Type: BLOOD SPECIMENOrdering Facility: [facility] Address: [address] [place] [address] Performed By: #### 5 7021-8 ####[facility] [id number] [place] [address] [place] Neutrophils/100 WBC (Bld) 56.1 % Normal [facility] Comment on above: Order Comment: Speci men Type: BLOOD SPECIMENOrdering Facility: [facility] Address: [address] [place] [address] Performed By: #### 5 7021-8 ####[facility]CL[facility] [id number] [place] [address] [place] Nucleated RBC (Bld) [#/Vol] 10*3/uL Normal <0.01 [facility] Comment on above: Order Comment: Speci men Type: BLOOD SPECIMENOrdering Facility: [facility] Address: [address] [place] [address] Performed By: #### 5 7021-8 ####[facility] LABIA [id number] [place] [address] [place] Nucleated RBC/100 WBC (Bld) [Ratio] 0.0 /100 WBC Normal [facility] Comment on above: Order Comment: Speci men Type: BLOOD SPECIMENOrdering Facility: [facility] Address: [address] [place] [address] Performed By: #### 5 7021-8 ####[facility] [id number] [place] [address] [place] Platelet mean volume (Bld) [Entitic vol] 9.6 fL Normal 9.0-12.7 [facility] Comment on above: Order Comment: Speci men Type: BLOOD SPECIMENOrdering Facility: [facility] Address: [address] [place] [address] Performed By: #### 5 7021-8 ####[facility]IA [id number] [place] [address] [place] Platelets (Bld) [#/Vol] 308 10*3/uL Normal 150-400 [facility] Comment on above: Order Comment: Speci men Type: BLOOD SPECIMENOrdering Facility: [facility] Address: [address] [place] [address] Performed By: #### 5 7021-8 ####[facility] [id number] [address] [address] [place] RBC (Bld) [#/Vol] 4.43 10*6/uL Normal 3.90-5.20 [facility] Comment on above: Order Comment: Speci men Type: BLOOD SPECIMENOrdering Facility: [facility] Address: [address] [place] [address] Performed By: #### 5 7021-8 ####[facility]IA [id number] [place] [address] [place] WBC (Bld) [#/Vol] 9.85 10*3/uL Normal 3.70-11.00 [facility] Comment on above: Order Comment: Speci men Type: BLOOD SPECIMENOrdering Facility: [facility] Address: [address] [place] [address] Performed By: #### 5 7021-8 ####[facility] [id number] [place] [address] [place] CNOVon 07-13-2024 CNOV Normal [facility] Comprehensive metabolic 2000 panelon 07-13-2024 Albumin [Mass/Vol] 3.8 g/dL Low 3.9-4.9 [facility] Comment on above: Order Comment: Speci men Type: BLOOD SPECIMENOrdering Facility: [facility] Address: [address] [place] [address] Performed By: #### 2 4323-8 ####[facility]IA [id number] [place] [address] [place] ALP [Catalytic activity/Vol] 67 U/L Normal 34-123 [facility] Comment on above: Order Comment: Speci men Type: BLOOD SPECIMENOrdering Facility: [facility] Address: [address] [place] [address] Performed By: #### 2 4323-8 ####[facility] LABIA [id number] [place] [id number] [place] ALT [Catalytic activity/Vol] 18 U/L Normal 7-38 [facility] Comment on above: Order Comment: Speci men Type: BLOOD SPECIMENOrdering Facility: [facility] Address: [address] [place] [address] Performed By: #### 2 4323-8 ####[facility]CL[facility] [id number] [place] [address] [place] Anion gap [Moles/Vol] 6 mmol/L Low 8-15 [facility] Comment on above: Order Comment: Speci men Type: BLOOD SPECIMENOrdering Facility: [facility] Address: [address] [place] [address] Performed By: #### 2 4323-8 ####[facility]CL[facility] [id number] [place] [address] [place] AST [Catalytic activity/Vol] 21 U/L Normal 13-35 [facility] Comment on above: Order Comment: Speci men Type: BLOOD SPECIMENOrdering Facility: [facility] Address: [address] [place] [address] Performed By: #### 2 4323-8 ####[facility]CL[facility] [id number] [place] [address] [place] Bilirubin [Mass/Vol] mg/dL Low 0.2-1.3 [facility] Comment on above: Order Comment: Speci men Type: BLOOD SPECIMENOrdering Facility: [facility] Address: [address] [place] [address] Performed By: #### 2 4323-8 ####[facility]CL[facility] [id number] [place] [address] [place] Calcium [Mass/Vol] 9.0 mg/dL Normal 8.5-10.2 [facility] Comment on above: Order Comment: Speci men Type: BLOOD SPECIMENOrdering Facility: [facility] Address: [address] [place] [address] Performed By: #### 2 4323-8 ####[facility]CL[facility] [id number] [place] [id number] [place] Chloride [Moles/Vol] 105 mmol/L Normal 98-107 [facility] Comment on above: Order Comment: Speci men Type: BLOOD SPECIMENOrdering Facility: [facility] Address: [address] [place] [address] Performed By: #### 2 4323-8 ####[facility]CL[facility] [id number] [place] [address] [place] CO2 [Moles/Vol] 30 mmol/L Normal 22-30 [facility] Comment on above: Order Comment: Speci men Type: BLOOD SPECIMENOrdering Facility: [facility] Address: [address] [place] [address] Performed By: #### 2 4323-8 ####[facility]CL[facility] [id number] [place] [address] [place] Creatinine [Mass/Vol] 0.79 mg/dL Normal 0.58-0.96 [facility] Comment on above: Order Comment: Speci men Type: BLOOD SPECIMENOrdering Facility: [facility] Address: [address] [place] [address] Performed By: #### 2 4323-8 ####[facility]CL[facility] [id number] [place] [address] [place] Creatinine and Glomerular filtration rate.predicted panel (S/P/Bld) 96 mL/min/1.73m??? Normal >=60 [facility] Comment on above: Order Comment: Speci men Type: BLOOD SPECIMENOrdering Facility: [facility] Address: [address] [place] [address] Result Comment: Cristal mated Glomerular Filtration Rate (eGFR) is calculated using the 2020 CKD-EPI creatinine equation. This equation utilizes serum creatinine, sex, and age as parameters. The creatinine assay has traceable calibration to isotope dilution-mass spectrometry. Refer to KDIGO guidelines for clinical interpretation. In patients with unstable renal function, e.g. those with acute kidney injury, the eGFR may not accurately reflect actual GFR. Performed By: #### 2 4323-8 ####[facility]CL[facility] [id number] [place] [address] [place] Glucose [Mass/Vol] 68 mg/dL Low 74-99 [facility] Comment on above: Order Comment: Speci issac Type: BLOOD SPECIMENOrdering Facility: [facility] Address: [address] [place] [address] Result Comment: The [place] Diabetes Association (ADA) provides guidance for cutoff values for fasting glucose and random glucose. The ADA defines fasting as no caloric intake for at least 8 hours. Fasting plasma glucose results between 100 to 125 mg/dL indicate increased risk for diabetes (prediabetes).Fasting plasma glucose results greater than or equal to 126 mg/dL meet the criteria for diagnosis of diabetes. In the absence of unequivocal hyperglycemia, results should be confirmed by repeat testing. In a patient with classic symptoms of hyperglycemia or hyperglycemic crisis, random plasma glucose results greater than or equal to 200 mg/dL meet the criteria for diagnosis of diabetes.Reference: Standards of Medical Care in Diabetes 2016, [place] [employer] Association. Diabetes Care. 2016.39(Suppl 1). Performed By: #### 2 4323-8 ####[facility]CL[facility] [id number] [place] [id number] [place] Potassium [Moles/Vol] 4.3 mmol/L Normal 3.7-5.1 [facility] Comment on above: Order Comment: Specmarianna davenport Type: BLOOD SPECIMENOrdering Facility: [facility] Address: [address] [place] [address] Performed By: #### 2 4323-8 ####[facility]CLIA [id number] [address] [address] [place] Protein [Mass/Vol] 5.9 g/dL Low 6.3-8.0 [facility] Comment on above: Order Comment: Speci men Type: BLOOD SPECIMENOrdering Facility: [facility] Address: [address] [place] [address] Performed By: #### 2 4323-8 ####[facility]CLIA [id number] [place] [address] [place] Sodium [Moles/Vol] 141 mmol/L Normal 136-144 [facility] Comment on above: Order Comment: Speci men Type: BLOOD SPECIMENOrdering Facility: [facility] Address: [address] [place] [address] Performed By: #### 2 4323-8 ####[facility]CL[facility] [id number] [place] [address] [place] Urea nitrogen [Mass/Vol] 8 mg/dL Normal 7-21 [facility] Comment on above: Order Comment: Speci men Type: BLOOD SPECIMENOrdering Facility: [facility] Address: [address] [place] [address] Performed By: #### 2 4323-8 ####[facility]CL[facility] [id number] [place] [address] [place] CNOVon 07-11-2024 CNOV Normal [facility] Estradiol SerPl-mCncon 07-10 E2 [Mass/Vol] 380 pg/mL Normal [facility] Comment on above: Order Comment: Speci men Type: BLOOD SPECIMENOrdering Facility: [facility] Address: [address] [place] [address] Result Comment: This test is not suitable for patients receiving treatment with the drug Fulvestrant (Faslodex). The drug causes an interference leading to falsely elevated estradiol results.Menstrual cycle Estradiol reference ranges:Follicular : < 234 pg/mLOvulation : 41 to 398 pg/mLLuteal : < 342 pg/mLPregnancy Estradiol reference ranges vary by gestational period:First trimester : 154 to 3243 pg/mLSecond trimester : 1561 to 99885 pg/mLThird trimester : 8285 to >79891 pg/mLPost-menopausal Estradiol reference range: < 41 pg/mLReference: 1. Estradiol - E2 (Estradiol III) [package insert V 3.0 Jordanian]. [employer], [place], [place], November 2015. Performed By: #### 1 5067-2, 2243-4 ####[facility] [id number] [address] [facility] SerPl-aCncon 07-10-2024 Follitropin Qn 13.9 m[IU]/mL Normal See comment [facility] Comment on above: Order Comment: Speci men Type: BLOOD SPECIMENOrdering Facility: [facility] Address: [facility] [place] [address] Result Comment: Refe rence range: Follicular: 3.5-12.5 mIU/mL Ovulation: 4.7-21.5 mIU/mL Luteal: 1.7-7.7 mIU/mL Postmenopausal: 25.8-134.8 mIU/mL Performed By: #### 1 5067-2, 2243-4 ####[facility]CL[facility] [id number] [address] [place] Plastic Surgery Visit Report on 07-10-2024 Plastic Surgery Visit Report [facility]constructive [facility] [address] [facility] [address] [facility] [place], [place] [id number] OFFICE VISIT Date of Service: 07/10/24 MR#: [id number] Acct: [id number] Name: PAT KNIGHT Rep #: [id number] : 1980 Provider: Dr. Constanza esposito MD Age/Sex: 44/F Location: [facility] Status: Signed Intake Vital Signs 07/03/24 09:54 07/10/24 13:49 Height 5 ft 5 in 5 ft 5 in Weight: 127 lb 130 lb BMI 21.1 21.6 BP 129/88 H 107/69 Blood Pressure Location Lt brachial Lt brachial Position Sitting Sitting Respiration 18 18 Pulse 99 81 Temp 97.2 F L 98.1 F Temp Source Oral Temporal Pulse Oximetry (%) 98 96 Oxygen Delivery Method room air room air Intake Visit Reasons: XRAY RESULTS Chief Complaint: x ray results Is patient in pain?: Yes (12/04) Allergies escitalopram (From Lexapro) Allergy (Verified 07/10/24 13:50) Other lamotrigine (From Lamictal) Allergy (Verified 07/10/24 13:50) Hives nitrofurantoin (From Macrobid) Allergy (Verified 07/10/24 13:50) Unknown nitrofurantoin macrocrystalline (From Macrobid) Allergy (Verified 07/10/24 13:50) Unknown codeine Adverse Reaction (Verified 07/10/24 13:50) Nausea Medications ???Medication ???Instructions ???Recorded ???Confirmed ???Type trazodone 100 mg tablet 100 mg PO QHS 01/03/17 07/10/24 History oxycodone-acetaminoph en 5 mg-325 1 tab PO Q6H PRN PRN Pain 3 days 09/04/22 07/10/24 Rx mg tablet #12 TABLETS inhalational spacing device 10/09/23 07/10/24 History (BreatheRite MDI Spacer) meloxicam 15 mg tablet 15 mg PO DAILY 01/01/24 07/10/24 History albuterol sulfate 90 mcg/actuation 2 puff inhalation Q4H PRN PRN 01/06/24 07/10/24 History aerosol inhaler wheezing alprazolam 0.5 mg tablet 0.5 mg PO DAILY PRN panic attack 02/27/24 07/10/24 History amitriptyline 10 mg tablet 10 mg PO QHS 02/27/24 07/10/24 History azithromycin 250 mg tablet See Rx Instructions PO .COMPLEX #6 02/27/24 07/10/24 Rx (Zithromax Z-Hernan) tabs gabapentin 300 mg capsule 300 mg PO TID 02/27/24 07/10/24 History lidocaine 5 % topical patch 1 patch topical Q24H 02/27/24 07/10/24 History nystatin 100,000 unit/mL oral 5 ml PO Q6H 02/27/24 07/10/24 History suspension sulfamethoxazole 800 1 tab PO BID 7 days #14 tabs 02/27/24 07/10/24 Rx mg-trimethoprim 160 mg tablet (Bactrim DS) tizanidine 4 mg tablet 4 mg PO Q6H PRN PRN muscle 02/27/24 07/10/24 History relaxation Nurse's Note: pt here for results of x ray, c/ o 6/10 pain scale for wrist left PFSH Medical History Right rotator cuff tear Wears partial dentures Hepatitis Smoker History of echocardiogram History of stress test Cardiology follow-up encounter History of CHF (congestive heart failure) Esophageal tear Anxiety Surgical History Hx of surgical procedure Hx of removal of ovary History of tonsillectomy and adenoidectomy Family History Mother Anxiety Hypertension High cholesterol Diabetes Depression Father Hypertension Social History household members: family housing: house Smoking Status: Current every day smoker tobacco type: cigarettes substance use type: marijuana additional social history: pt does not vape, does not take aspirin, pt does report using marijuana daily,does uses edibles on occassion, does use ibuprofen as needed. HPI XRAY RESULTS Details: Pat comes in to review the films that were done on her arm in light of the findings on the ultrasound. . Exam Details The plain films do not demonstrate evidence of foreign body with skin markers indicating the site of the pathology. She has a soft nodular neoplasm/cyst on the forearm at the location of the previous trauma. The cyst has a blue discoloration. I reviewed excision of the cyst under a general anesthetic (per her request). The cyst will be sent to pathology for evaluation. In light of the possible foreign bodies being non-radiopaque, I have indicated that despite the cyst removal, she could still retain them because we cannot visualize them. She is also aware that because of the location at the site in the middle of the complex flap laceration, we may experience some wound healing problems subsequently. We will obtain medical clearance from her primary care provider and schedule the procedure in the near future. 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 Normal [facility] CNOVon 07-09-2024 CNOV Normal [facility] HIGH RISK HUMAN PAPILLOMA GENEVA (HPV), PCR FOR DETECTION AND GENOTYPINGon 07-09-2024 HPV 16 Ag Ql (Unsp spec) Not detected Normal Not detected [facility] Comment on above: Order Comment: Speci men Type: FLUID SPECIMENOrdering Facility: [facility] Address: [address] [place] [address] Performed By: #### H PVHRT ####[facility] [id number] [place] [address] [place] HPV 18 Ag Ql (Unsp spec) Not detected Normal Not detected [facility] Comment on above: Order Comment: Speci men Type: FLUID SPECIMENOrdering Facility: [facility] Address: [address] [place] [address] Performed By: #### H PVHRT ####[facility] [id number] [place] [address] [place] HPV 31+33+35+39+45+51+52+ 56+58+59+66+68 DNA MARY KAY+probe Ql (Cvx) Not detected Normal Not detected [facility] Comment on above: Order Comment: Speci men Type: FLUID SPECIMENOrdering Facility: [facility] Address: [address] [place] [address] Result Comment: High Risk HPV Other Type includes HPV types 31, 33, 35, 39, 45, 51, 52, 56, 58, 59, 66 and 68. Performed By: #### H PVHRT ####[facility] [id number] [place] [address] [place] PAP TESTon 07-09-2024 ADEQUACY Normal [facility] Comment on above: Order Comment: Speci men Type: FLUID SPECIMENOrdering Facility: [facility] Address: [address] [place] [address] Result Comment: Sati sfactory for interpretation.Limited cellularity due to acellular background materialNo endocervical component Performed By: #### L [id number] ####[facility] [id number] [place] [address] [place] CASE REPORT Normal [facility] Comment on above: Order Comment: Speci men Type: FLUID SPECIMENOrdering Facility: [facility] Address: [address] [place] [address] Result Comment: Gyne cologic Cytology Report Case: [id number] Provider: Cecile Herndon APRN.DISABILITY MANAGER Collected: 07/09/2024 08:18 AMOrdering Location: OB/Gynecology Received: 07/09/2024 12:35 PMFirst Screen: Clapacs, ElishaSpecimen: Pap Test, ThinPrep, Cervix Performed By: #### L [id number] ####[facility] [id number] [place] [address] [place] CLINICAL HISTORY, CYTOLOGY, HYDRODYNAMICS TEACHER Routine Exam Normal [facility] Comment on above: Order Comment: Speci men Type: FLUID SPECIMENOrdering Facility: [facility] Address: [address] [place] [address] Result Comment: No M enses, Other (Specify)ablation Performed By: #### L [id number] ####[facility] [id number] [place] [address] [place] FINAL PERFORMING LAB Normal [facility] Comment on above: Order Comment: Speci men Type: FLUID SPECIMENOrdering Facility: [facility] Address: [address] [place] [address] Result Comment: Tech nical component, pulmonologist screening performed at [facility], [address] [place], [place] [id number] CLIA# [id number] interpretation performed at [facility], [address] [place], [place] [id number] CLIA# [id number] Director: Jose Guadalupe Madden M.D. Performed By: #### L [id number] ####[facility] [id number] [place] [id number] [place] INTERPRETATION, CYTOLOGY, HYDRODYNAMICS TEACHER Normal [facility] Comment on above: Order Comment: Speci men Type: FLUID SPECIMENOrdering Facility: [facility] Address: [address] [place] [address] Result Comment: Nega tive for intraepithelial lesion or malignancy. Performed By: #### L [id number] ####[facility] [id number] [place] [address] [place] PAP DISCLAIMER COMMENT The Pap Smear is a screening test for cervical cancer. False negative results occur with all screening tests, emphasizing the need for rescreening at recommended intervals, and clinical correlation. Normal [facility] Comment on above: Order Comment: Speci men Type: FLUID SPECIMENOrdering Facility: [facility] Address: [address] [place] [address] Performed By: #### L [id number] ####[facility] LABIA [id number] [place] [address] [place] PAP CARPET FINISHING SUPERVISOR COMMENT Normal [facility] Comment on above: Order Comment: Speci men Type: FLUID SPECIMENOrdering Facility: [facility] Address: [address] [place] [address] Performed By: #### L [id number] ####[facility] [id number] [place] [id number] [place] CNPNon 07-07-2024 CNPN Normal [facility] Forearm 2 Viewson 07-03-2024 Forearm 2 Views [facility] Imaging Services [address] [place] [address] Forearm 2 Views MR#: [id number] Acct: [id number] Name: PAT KNIGHT Rep #: [id number] : 1980 F 44 From: Tmi Garcia MD PCP: Dr. Maile Norman MD Status: REG CLI Study: Forearm 2 Views Date of Exam: 07/03/24 Exam# [id number] Ordering Dr: Constanza Cordova [place] [id number] STUDY: X-RAY - LEFT RADIUS AND ULNA REASON FOR EXAM: Female, 44 years old. Soft tissue, rule out foreign body - coned view of left forearm lump, stitches were previously there due to laceration from a cinderblock. TECHNIQUE: 2 views of the left forearm. COMPARISON: Left forearm radiographs dated 03/18/2024. FINDINGS: There is no demonstrated soft tissue swelling. There is no radiopaque foreign body. Normal visualized radius. Normal visualized ulna. RAD/Forearm 2 Views IMPRESSION: No radiopaque foreign body. Electronically Signed: Tim Garcia MD at 16:05 EST Reading Location ID and State: [address] [place] [address] , Service support , CC: Dr. Maile Norman MD; Dr. Constanza Cordova MD Behaviour Support Teacher: Signed Normal [facility] Plastic Surgery Visit Report on 07-03-2024 Plastic Surgery Visit Report [facility] Plastic Reconstructive Surgery [facility] [facility] [place] [address] OFFICE VISIT Date of Service: 07/03/24 MR#: [id number] Acct: [id number] Name: PAT KNIGHT Rep #: [id number] : 1980 Provider: Dr. Constanza esposito MD Age/Sex: 44/F Location: [facility] [place] Status: Signed Intake Vital Signs 06/06/24 13:34 07/02/24 22:53 07/03/24 09:54 Height 5 ft 5 in 5 ft 5 in 5 ft 5 in Weight: 125 lb 8 oz 127 lb BMI 20.9 21.1 BP 126/79 H 129/88 H Blood Pressure Location Lt brachial Lt brachial Position Sitting Sitting Respiration 18 18 Pulse 96 99 Temp 97.7 F L 97.2 F L Temp Source Oral Oral Pulse Oximetry (%) 97 98 Oxygen Delivery Method room air room air Intake Visit Reasons: ULTRASOUND RESULTS Chief Complaint: ultrasound results Accompanied by: Is patient in pain?: Yes (irritating at scar or when bumped) Allergies escitalopram (From Lexapro) Allergy (Verified 07/03/24 09:55) Other lamotrigine (From Lamictal) Allergy (Verified 07/03/24 09:55) Hives nitrofurantoin (From Macrobid) Allergy (Verified 07/03/24 09:55) Unknown nitrofurantoin macrocrystalline (From Macrobid) Allergy (Verified 07/03/24 09:55) Unknown codeine Adverse Reaction (Verified 07/03/24 09:55) Nausea Medications ???Medication ???Instructions ???Recorded ???Confirmed ???Type trazodone 100 mg tablet 100 mg PO QHS 01/03/17 07/03/24 History oxycodone-acetaminoph en 5 mg-325 1 tab PO Q6H PRN PRN Pain 3 days 09/04/22 07/03/24 Rx mg tablet #12 TABLETS inhalational spacing device 10/09/23 07/03/24 History (BreatheRite MDI Spacer) meloxicam 15 mg tablet 15 mg PO DAILY 01/01/24 07/03/24 History albuterol sulfate 90 mcg/actuation 2 puff inhalation Q4H PRN PRN 01/06/24 07/03/24 History aerosol inhaler wheezing alprazolam 0.5 mg tablet 0.5 mg PO DAILY PRN panic attack 02/27/24 07/03/24 History amitriptyline 10 mg tablet 10 mg PO QHS 02/27/24 07/03/24 History azithromycin 250 mg tablet See Rx Instructions PO .COMPLEX #6 02/27/24 07/03/24 Rx (Zithromax Z-Hernan) tabs gabapentin 300 mg capsule 300 mg PO TID 02/27/24 07/03/24 History lidocaine 5 % topical patch 1 patch topical Q24H 02/27/24 07/03/24 History nystatin 100,000 unit/mL oral 5 ml PO Q6H 02/27/24 07/03/24 History suspension sulfamethoxazole 800 1 tab PO BID 7 days #14 tabs 02/27/24 07/03/24 Rx mg-trimethoprim 160 mg tablet (Bactrim DS) tizanidine 4 mg tablet 4 mg PO Q6H PRN PRN muscle 02/27/24 07/03/24 History relaxation Nurse's Note: pt here with for result of ultrasound [facility] Medical History Right rotator cuff tear Wears partial dentures Hepatitis Smoker History of echocardiogram History of stress test Cardiology follow-up encounter History of CHF (congestive heart failure) Esophageal tear Anxiety Surgical History Hx of surgical procedure Hx of removal of ovary History of tonsillectomy and adenoidectomy Family History Mother Anxiety Hypertension High cholesterol Diabetes Depression Father Hypertension Social History household members: family housing: house Smoking Status: Current every day smoker tobacco type: cigarettes substance use type: marijuana additional social history: pt does not vape, does not take aspirin, pt does report using marijuana daily,does uses edibles on occassion, does use ibuprofen as needed. HPI ULTRASOUND RESULTS Details: Pat comes in today for recheck of the left forearm lump. She states it is tender to touch. She denies any change in the appearance. Exam Details The patient's firm, bluish discolored cyst of the left ulnar forearm persist. She states it is tender to touch. The overlying skin appears intact. In review of the ultrasound/Doppler of the area, there is no vascular component. Mention is made of an echogenic cyst with a tract to the skin. There are 2 possible foreign bodies within the cyst measuring 4 mm and 2 mm. The patient denies any knowledge of needle breakage in the area. She has had forearm x-rays to rule out fracture but I propose getting a coned-down view of the soft tissue to ensure no metallic foreign body. I indicated that in the absence of a metallic component, I would be unable to ensure that I removed all of any foreign body component. We will try to get that x-ray today. I will see her back in a week for review of the results and planning of the surgery. This will likely be done under a general anesthetic as an outpatient. Coding Level of Care Code Off vis,est,level 3 (more content not included)... Normal [facility] Emergency Department Summary on 07-02-2024 Emergency Department Summary [facility] Medical Records Department [address] [place] [address] Emergency Department Summary 07/02/24 MR#: [id number] Acct: [id number] Name: PAT KNIGHT Rep #: [id number] : 1980 44 From: John Bass DO PCP: Dr. Maile Norman MD Status:DEP ER Location: ED HPI History of Present Illness Chief Complaint: Headache Informant: patient and spouse/S.O. Narrative Narrative: 44-year-old female presenting to the emergency room with right periorbital headache. Patient states that she used to get headaches which she refers to as migraines describes them as all over. She has not had some for quite a while. She notes that last evening she began to have blurry vision in the right eye and right periorbital pain that radiates towards her ear. She associates this with nausea. She denies fever rash significant rhinorrhea. She denies any tearing of the eye. No hearing change. No arm or leg symptoms. She notes by this morning was feeling better after taking Excedrin. However the headache returned again this evening she has not got relief with the Excedrin. Patient denies any recent head injuries. [facility] Medical History Right rotator cuff tear Wears partial dentures Hepatitis Smoker History of echocardiogram History of stress test Cardiology follow-up encounter History of CHF (congestive heart failure) Esophageal tear Anxiety Home Medications ???Medication ???Instructions ???Recorded ???Last Taken ???Type trazodone 100 mg tablet 100 mg PO QHS 01/03/17 06/06/22 History oxycodone-acetaminoph en 5 mg-325 1 tab PO Q6H PRN PRN Pain 3 days 09/04/22 Unknown Rx mg tablet #12 TABLETS inhalational spacing device 10/09/23 Unknown History (BreatheRite MDI Spacer) meloxicam 15 mg tablet 15 mg PO DAILY 01/01/24 Unknown History albuterol sulfate 90 mcg/actuation 2 puff inhalation Q4H PRN PRN 01/06/24 Unknown History aerosol inhaler wheezing alprazolam 0.5 mg tablet 0.5 mg PO DAILY PRN panic attack 02/27/24 Unknown History amitriptyline 10 mg tablet 10 mg PO QHS 02/27/24 Unknown History azithromycin 250 mg tablet See Rx Instructions PO .COMPLEX #6 02/27/24 Unknown Rx (Zithromax Z-Hernan) tabs gabapentin 300 mg capsule 300 mg PO TID 02/27/24 Unknown History lidocaine 5 % topical patch 1 patch topical Q24H 02/27/24 Unknown History nystatin 100,000 unit/mL oral 5 ml PO Q6H 02/27/24 Unknown History suspension sulfamethoxazole 800 1 tab PO BID 7 days #14 tabs 02/27/24 Unknown Rx mg-trimethoprim 160 mg tablet (Bactrim DS) tizanidine 4 mg tablet 4 mg PO Q6H PRN PRN muscle 02/27/24 Unknown History relaxation Allergy/AdvReac Type Severity Reaction Status Date / Time escitalopram (From Lexapro) Allergy Other Verified 07/02/24 22:53 lamotrigine (From Lamictal) Allergy Hives Verified 07/02/24 22:53 nitrofurantoin (From Allergy Unknown Verified 07/02/24 22:53 Macrobid) nitrofurantoin Allergy Unknown Verified 07/02/24 22:53 macrocrystalline (From Macrobid) codeine AdvReac Nausea Verified 07/02/24 22:53 Family History Mother Anxiety Hypertension High cholesterol Diabetes Depression Father Hypertension Surgical History Hx of surgical procedure Hx of removal of ovary History of tonsillectomy and adenoidectomy Social History household members: family housing: house Smoking Status: Current every day smoker tobacco type: cigarettes substance use type: marijuana additional social history: pt does not vape, does not take aspirin, pt does report using marijuana daily,does uses edibles on occassion, does use ibuprofen as needed. ROS ROS ED Constitutional Constitutional ED: Denies chills, fever(s) or weight loss Eyes Eyes: Reports blurry vision right; Denies change in vision or diplopia ENT ENT ED: Denies ear pain, rhinorrhea or sore throat Cardiovascular Cardiovascular: Denies chest pain, orthopnea, palpitations or racing heartbeat Respiratory/Chest Respiratory/Chest: Denies cough, dyspnea or orthopnea Gastrointestinal Gastrointestinal: Denies abdominal pain, diarrhea, nausea or vomiting Genitourinary Genitourinary ED: Denies dysuria, hematuria or urinary frequency Musculoskeletal Musculoskeletal: Denies arthralgias or myalgias Integumentary Denies abscess or rash Neurologic Neurologic: Reports headache(s); Denies paresthesias or weakness Psychiatric Psychiatric: Denies anxiety, depression, suicidal ideation or suicidal thoughts Endocrine Endocrinology: Denies polydipsia, polyphagia or polyuria Allergic/Immunologic Allergic/Immunologic ED: Denies mouth swellin (more content not included)... Normal [facility] Other Unlisted US Procedureo n 06-28-2024 Other Unlisted US Procedure [facility] Imaging Services [address] [place] [address] Other Unlisted US Procedure MR#: [id number] Acct: [id number] Name: PAT KNIGHT Rep #: [id number] : 1980 F 44 From: Deena Reardon MD PCP: Dr. Maile Norman MD Status: [facility] Study: Other Unlisted US Procedure Date of Exam: 08/21 Exam# [id number] Ordering Dr: Constanza Cordova MD ADDENDUM by Dr. Cristhian Wilhelm MD on 08/16/24 at 1500 This is an addendum to correct report header and technique: Real-Time targeted ultrasound imaging of the soft tissues of the left forearm were obtained. 09/07/24 0757 Date cc: Dr. Maile Norman MD; Dr. Constanza Cordova MD * Signed [id number] EXAM: US ABDOMEN LIMITED CLINICAL INDICATION: lump left forearm -- please eval for vascularity TECHNIQUE: Real-time ultrasound of the soft tissues of the abdomen with image documentation. COMPARISON: No relevant prior studies available. FINDINGS: SOFT TISSUES: There is an ovoid subcutaneous complex fluid collection, partially hypoechoic to anechoic with mildly echogenic central contents. Doppler box placed on the lesion shows no internal or peripheral vascularity and there appears to be a tiny tract to the skin. 8 mm x 3 mm by 8mm complex collection. No involvement of underlying muscle. The marker is labeled over the dorsal or lateral distal forearm. OTHER FINDINGS: The 2 major intraluminal echogenic structures are 4 mm x 1 mm and 2 mm x 0.5 mm respectively. US/Other Unlisted US Procedure IMPRESSION: Subcutaneous elongated pocket of fluid with 2 echogenic linear structures which may be foreign bodies. Tiny hypoechoic tract towards the skin. No internal or significant peripheral vascularity on limited views with color Doppler. Electronically Signed: Deena Reardon MD at 2:06 EST , CC: Dr. Maile Norman MD; Dr. Constanza Cordova MD Behaviour Support Teacher: Signed [facility] MR Shoulder - right WO contr raheel 06-15-2024 IMPRESSION: 1. Postoperative changes of biceps . 2. Rotator cuff tendinosis without evidence of a high-grade tear. 3. Mild to moderate subdeltoid subacromial bursitis. Behaviour Support Teacher: DARSHAN Transcribe Date/Time: Dec 20 2024 6:15P Dictated by : SHAWNEE BRICE MD This examination was interpreted and the report reviewed and electronically signed by: SHAWNEE BRICE MD on Jun 15 2024 6:24PM [facility] DIVISION OF RADIOLOGY * * *Final Report* * * DATE OF EXAM: Jun 15 2024 1:17PM [facility] 0240 - MRI SHOULDER WO IVCON RT / PROCEDURE REASON: multiple diagnoses * * * * Physician Interpretation * * * * EXAMINATION: MRI SHOULDER WO IVCON RT HISTORY: TECHNIQUE: Routine non-contrast MRI of the shoulder. MQ: MRS_1A COMPARISON: None RESULT: TENDONS: Rotator cuff tendons: -Supraspinatus: Intact with tendinosis -Infraspinatus: Intact with tendinosis -Subscapularis: Intact with tendinosis -Teres Minor: Intact tendon Biceps (Long head) Tendon: Postsurgical of tenodesis MUSCLES: Rotator cuff muscles: -Supraspinatus: Preserved bulk and no fatty changes. -Infraspinatus: Preserved bulk and no fatty changes. -Subscapularis: Preserved bulk and no fatty changes. -Teres Minor: Preserved bulk and no fatty changes. Other muscles: Preserved signal and bulk in the deltoid. JOINTS: Glenohumeral Joint: -Labrum: Postsurgical changes in the superior labrum at the biceps anchor. Degenerative changes in the posterior and superior labrum. -Cartilage: Mild cartilage loss/fissuring -Joint Fluid: No effusion . No synovitis. Acromioclavicular Joint: Normal BONES AND MARROW: No evidence of fracture or suspicious bone marrow replacing process OTHER: Subdeltoid/Subacromia l Bursa: Mild to moderate bursal distention /thickening anteriorly along the subscapularis muscle. Other: No other significant findings. Localizer images: No additional findings. DIVISION OF RADIOLOGY Provider, [facility] - 06/15/2024 * * *Final Report* * * DATE OF EXAM: Jun 15 2024 1:17PM [facility] 0240 - MRI SHOULDER WO IVCON RT / PROCEDURE REASON: multiple diagnoses * * * * Physician Interpretation * * * * EXAMINATION: MRI SHOULDER WO IVCON RT HISTORY: TECHNIQUE: Routine non-contrast MRI of the shoulder. MQ: MRS_1A COMPARISON: None RESULT: TENDONS: Rotator cuff tendons: -Supraspinatus: Intact with tendinosis -Infraspinatus: Intact with tendinosis -Subscapularis: Intact with tendinosis -Teres Minor: Intact tendon Biceps (Long head) Tendon: Postsurgical of tenodesis MUSCLES: Rotator cuff muscles: -Supraspinatus: Preserved bulk and no fatty changes. -Infraspinatus: Preserved bulk and no fatty changes. -Subscapularis: Preserved bulk and no fatty changes. -Teres Minor: Preserved bulk and no fatty changes. Other muscles: Preserved signal and bulk in the deltoid. JOINTS: Glenohumeral Joint: -Labrum: Postsurgical changes in the superior labrum at the biceps anchor. Degenerative changes in the posterior and superior labrum. -Cartilage: Mild cartilage loss/fissuring -Joint Fluid: No effusion . No synovitis. Acromioclavicular Joint: Normal BONES AND MARROW: No evidence of fracture or suspicious bone marrow replacing process OTHER: Subdeltoid/Subacromia l Bursa: Mild to moderate bursal distention /thickening anteriorly along the subscapularis muscle. Other: No other significant findings. Localizer images: No additional findings. IMPRESSION IMPRESSION: 1. Postoperative changes of biceps . 2. Rotator cuff tendinosis without evidence of a high-grade tear. 3. Mild to moderate subdeltoid subacromial bursitis. Behaviour Support Teacher: DARSHAN Transcribe Date/Time: Jun 15 2024 6:15P Dictated by : SHAWNEE BRICE MD This examination was interpreted and the report reviewed and electronically signed by: SHAWNEE BRICE MD on Jun 15 2024 6:24PM EST [facility] Radiology Study observation (narrative) [facility] MR Shoulder - right WO contr astOrdered By: Ccf Provider on 06-15-2024 [facility] MRI SHOULDER WO IVCON RTon 1 08-16-2023 MRI SHOULDER WO IVCON RT Normal [facility] Plastic Surgery Visit Report on 06-06-2024 Plastic Surgery Visit Report [facility] Plastic Reconstructive Surgery [address] [place], [place] [address] OFFICE VISIT Date of Service: 06/06/24 MR#: [id number] Acct: [id number] Name: PAT KNIGHT #: [id number] : 1980 Provider: Dr. Constanza esposito MD Age/Sex: 44/F Location: [facility] [place] Status: Signed Intake Vital Signs 03/18/24 13:22 06/06/24 13:34 Height 5 ft 5 in 5 ft 5 in Weight: 125 lb 8 oz BMI 20.9 BP 126/79 H Blood Pressure Location Lt brachial Position Sitting Respiration 18 Pulse 96 Temp 97.7 F L Temp Source Oral Pulse Oximetry (%) 97 Oxygen Delivery Method room air Intake Visit Reasons: BUMP FORMING ON SCAR Chief Complaint: bump beside scar Accompanied by: Daughter Is patient in pain?: Yes (11/03) Allergies escitalopram (From Lexapro) Allergy (Verified 06/06/24 13:35) Other lamotrigine (From Lamictal) Allergy (Verified 06/06/24 13:35) Hives nitrofurantoin (From Macrobid) Allergy (Verified 06/06/24 13:35) Unknown nitrofurantoin macrocrystalline (From Macrobid) Allergy (Verified 06/06/24 13:35) Unknown codeine Adverse Reaction (Verified 06/06/24 13:35) Nausea Medications ???Medication ???Instructions ???Recorded ???Confirmed ???Type trazodone 100 mg tablet 100 mg PO QHS 01/03/17 02/27/24 History oxycodone-acetaminoph en 5 mg-325 1 tab PO Q6H PRN PRN Pain 3 days 09/04/22 02/27/24 Rx mg tablet #12 TABLETS inhalational spacing device 10/09/23 10/09/23 History (BreatheRite MDI Spacer) meloxicam 15 mg tablet 15 mg PO DAILY 01/01/24 02/27/24 History albuterol sulfate 90 mcg/actuation 2 puff inhalation Q4H PRN PRN 01/06/24 06/06/24 History aerosol inhaler wheezing alprazolam 0.5 mg tablet 0.5 mg PO DAILY PRN panic attack 02/27/24 06/06/24 History amitriptyline 10 mg tablet 10 mg PO QHS 02/27/24 02/27/24 History azithromycin 250 mg tablet See Rx Instructions PO .COMPLEX #6 02/27/24 Rx (Zithromax Z-Hernan) tabs gabapentin 300 mg capsule 300 mg PO TID 02/27/24 02/27/24 History lidocaine 5 % topical patch 1 patch topical Q24H 02/27/24 02/27/24 History nystatin 100,000 unit/mL oral 5 ml PO Q6H 02/27/24 02/27/24 History suspension sulfamethoxazole 800 1 tab PO BID 7 days #14 tabs 02/27/24 Rx mg-trimethoprim 160 mg tablet (Bactrim DS) tizanidine 4 mg tablet 4 mg PO Q6H PRN PRN muscle 02/27/24 02/27/24 History relaxation Nurse's Note: pt report falling over cinder block and cutting arm, received stitches. Now there is a bump beside the area. bump is painfule [facility] Medical History Right rotator cuff tear Wears partial dentures Hepatitis Smoker History of echocardiogram History of stress test Cardiology follow-up encounter History of CHF (congestive heart failure) Esophageal tear Anxiety Surgical History Hx of surgical procedure Hx of removal of ovary History of tonsillectomy and adenoidectomy Family History (Updated 06/06/24 @ 13:28 by Andressa Miller) Mother Anxiety Hypertension High cholesterol Diabetes Depression Father Hypertension Social History (Updated 06/06/24 @ 13:34 by Andressa Miller) household members: family housing: house Smoking Status: Current every day smoker tobacco type: cigarettes substance use type: marijuana additional social history: pt does not vape, does not take aspirin, pt does report using marijuana daily,does uses edibles on occassion, does use ibuprofen as needed. HPI BUMP FORMING ON SCAR Details: Pat is a 44-year-old female who sustained a laceration of her left forearm in . This was repaired in the emergency room. She states approximately 2 weeks after that she noticed a small bump near the area that has been enlarging and is tender to touch. She has had x-rays done at the time of the injury as well as recently in her doctor's office with no evidence of foreign body. ROS General General: Yes good health; No fatigue, fever(s) or weight loss HENMT HENMT: No rhinitis, sore throat/mouth sore, nasal congestion, contacts or glaucoma Endo Endocrine: No thyroid disease, polydipsia, heat intolerance, cold intolerance, hepatitis or excessive urine Skin Skin: No Bleeding, bruising, changing moles or suspicious lesion Musc Musculoskeletal: No joint pain, joint stiffness, muscle weakness, back pain, osteoarthritis or Muscle aches/ myalgia Neuro Neurological: No headache(s), No lightheadedness and No numbness Cardio Cardiovascular: No chest pain, pacemaker, fatigue or shortness of breat with exertion Psych Psychiatric: No depression, claustrophobia or anxiety Resp Respiratory: No spitting up, shortness of breath, sleep apnea, asthma, emphysem (more content not included)... Normal [facility] 06-05-2024 [facility] Normal [facility] 05-29-2024 [facility] Normal [facility] 05-25-2024 [facility] Normal [facility] XR HAND 3V PA/LAT/OBL RTon 1 07-25-2023 XR HAND 3V PA/LAT/OBL RT Normal [facility] XR Hand - right PA and Later al and Obliqueon 05-25-2024 IMPRESSION: Negative ulnar variance. No acute radiographic abnormalities identified. Behaviour Support Teacher: DARSHAN Transcribe Date/Time: May 25 2024 12:08P Dictated by : OTTONIEL OSHEA MD This examination was interpreted and the report reviewed and electronically signed by: OTTONIEL OSHEA MD on May 25 2024 12:10PM [facility] DIVISION OF RADIOLOGY * * *Final Report* * * DATE OF EXAM: May 25 2024 11:59AM [facility]OX [id number] - XR HAND 3V PA/LAT/OBL RT / PROCEDURE REASON: Pain of right hand * * * * Physician Interpretation *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 SPECIMENOrdering Facility: [facility] Address: [address] [place] [address] Performed By: #### 5 7021-8 ####[facility] [id number] [place] [address] [place] Eosinophils/100 WBC (Bld) 2.7 % Normal [facility] Comment on above: Order Comment: Speci men Type: BLOOD SPECIMENOrdering Facility: [facility] Address: [address] [place] [address] Performed By: #### 5 7021-8 ####[facility] [id number] [place] [address] [place] Erythrocyte distribution width (RBC) [Ratio] 12.8 % Normal 11.5-15.0 [facility] Comment on above: Order Comment: Speci men Type: BLOOD SPECIMENOrdering Facility: [facility] Address: [address] [place] [address] Performed By: #### 5 7021-8 ####[facility] [id number] [place] [address] [place] Hematocrit (Bld) [Volume fraction] 42.9 % Normal 36.0-46.0 [facility] Comment on above: Order Comment: Speci men Type: BLOOD SPECIMENOrdering Facility: [facility] Address: [address] [place] [address] Performed By: #### 5 7021-8 ####[facility] [id number] [place] [address] [place] Hemoglobin (Bld) [Mass/Vol] 14.2 g/dL Normal 11.5-15.5 [facility] Comment on above: Order Comment: Speci men Type: BLOOD SPECIMENOrdering Facility: [facility] Address: [address] [place] [address] Performed By: #### 5 7021-8 ####[facility] [id number] [place] [address] [place] Immature granulocytes (Bld) [#/Vol] 10*3/uL Normal <0.10 [facility] Comment on above: Order Comment: Speci men Type: BLOOD SPECIMENOrdering Facility: [facility] Address: [address] [place] [address] Performed By: #### 5 7021-8 ####[facility] [id number] [place] [address] [place] Immature granulocytes/100 WBC (Bld) 0.2 % Normal [facility] Comment on above: Order Comment: Speci men Type: BLOOD SPECIMENOrdering Facility: [facility] Address: [address] [place] [address] Performed By: #### 5 7021-8 ####[facility] LABCLIA [id number] [place] [address] [place] Lymphocytes (Bld) [#/Vol] 2.52 10*3/uL Normal 1.00-4.00 [facility] Comment on above: Order Comment: Speci men Type: BLOOD SPECIMENOrdering Facility: [facility] Address: [address] [place] [address] Performed By: #### 5 7021-8 ####[facility] LABCLIA [id number] [place] [address] [place] Lymphocytes/100 WBC (Bld) 28.5 % Normal [facility] Comment on above: Order Comment: Speci men Type: BLOOD SPECIMENOrdering Facility: [facility] Address: [address] [place] [address] Performed By: #### 5 7021-8 ####[facility] LABIA [id number] [place] [address] [place] MCH (RBC) [Entitic mass] 32.4 pg Normal 26.0-34.0 [facility] Comment on above: Order Comment: Speci men Type: BLOOD SPECIMENOrdering Facility: [facility] Address: [address] [place] [address] Performed By: #### 5 7021-8 ####[facility] LABIA [id number] [place] [address] [place] MCHC (RBC) [Mass/Vol] 33.1 g/dL Normal 30.5-36.0 [facility] Comment on above: Order Comment: Speci men Type: BLOOD SPECIMENOrdering Facility: [facility] Address: [address] [place] [address] Performed By: #### 5 7021-8 ####[facility] LABIA [id number] [place] [address] [place] MCV (RBC) [Entitic vol] 97.9 fL Normal 80.0-100.0 [facility] Comment on above: Order Comment: Speci men Type: BLOOD SPECIMENOrdering Facility: [facility] Address: [address] [place] [address] Performed By: #### 5 7021-8 ####[facility] LABIA [id number] [place] [address] [place] Monocytes (Bld) [#/Vol] 0.57 10*3/uL Normal <0.87 [facility] Comment on above: Order Comment: Speci men Type: BLOOD SPECIMENOrdering Facility: [facility] Address: [address] [place] [address] Performed By: #### 5 7021-8 ####[facility] LABCLIA [id number] [place] [address] [place] Monocytes/100 WBC (Bld) 6.4 % Normal [facility] Comment on above: Order Comment: Speci men Type: BLOOD SPECIMENOrdering Facility: [facility] Address: [address] [place] [address] Performed By: #### 5 7021-8 ####[facility] LABCLIA [id number] [place] [address] [place] Neutrophils (Bld) [#/Vol] 5.39 10*3/uL Normal 1.45-7.50 [facility] Comment on above: Order Comment: Speci men Type: BLOOD SPECIMENOrdering Facility: [facility] Address: [address] [place] [address] Performed By: #### 5 7021-8 ####[facility] LABIA [id number] [place] [address] [place] Neutrophils/100 WBC (Bld) 61.0 % Normal [facility] Comment on above: Order Comment: Speci men Type: BLOOD SPECIMENOrdering Facility: [facility] Address: [address] [place] [address] Performed By: #### 5 7021-8 ####[facility] LABIA [id number] [place] [address] [place] Nucleated RBC (Bld) [#/Vol] 10*3/uL Normal <0.01 [facility] Comment on above: Order Comment: Speci men Type: BLOOD SPECIMENOrdering Facility: [facility] Address: [address] [place] [address] Performed By: #### 5 7021-8 ####[facility] LABCLIA [id number] [place] [address] [place] Nucleated RBC/100 WBC (Bld) [Ratio] 0.0 /100 WBC Normal [facility] Comment on above: Order Comment: Speci men Type: BLOOD SPECIMENOrdering Facility: [facility] Address: [address] [place] [address] Performed By: #### 5 7021-8 ####[facility] LABIA [id number] [place] [address] [place] Platelet mean volume (Bld) [Entitic vol] 10.0 fL Normal 9.0-12.7 [facility] Comment on above: Order Comment: Speci men Type: BLOOD SPECIMENOrdering Facility: [facility] Address: [address] [place] [address] Performed By: #### 5 7021-8 ####[facility] LABIA [id number] [place] [address] [place] Platelets (Bld) [#/Vol] 347 10*3/uL Normal 150-400 [facility] Comment on above: Order Comment: Speci men Type: BLOOD SPECIMENOrdering Facility: [facility] Address: [address] [place] [address] Performed By: #### 5 7021-8 ####[facility] LABIA [id number] [place] [address] [place] RBC (Bld) [#/Vol] 4.38 10*6/uL Normal 3.90-5.20 [facility] Comment on above: Order Comment: Speci men Type: BLOOD SPECIMENOrdering Facility: [facility] Address: [address] [place] [address] Performed By: #### 5 7021-8 ####[facility] LABIA [id number] [place] [address] [place] WBC (Bld) [#/Vol] 8.85 10*3/uL Normal 3.70-11.00 [facility] Comment on above: Order Comment: Speci men Type: BLOOD SPECIMENOrdering Facility: [facility] Address: [address] [place] [address] Performed By: #### 5 7021-8 ####[facility] LABCLIA [id number] [address] [address] [place] CNOVon 02-28-2024 CNOV Normal [facility] CNPNon 02-28-2024 CNPN Normal [facility] Comprehensive metabolic 2000 panelon 02-28-2024 Albumin [Mass/Vol] 3.9 g/dL Normal 3.9-4.9 [facility] Comment on above: Order Comment: Speci men Type: BLOOD SPECIMENOrdering Facility: [facility] Address: [address] [place], [place] [address] Performed By: #### 2 4323-8 ####[facility] LABCLIA [id number] [place] [id number] [place] ALP [Catalytic activity/Vol] 61 U/L Normal 34-123 [facility] Comment on above: Order Comment: Speci men Type: BLOOD SPECIMENOrdering Facility: [facility] Address: [address] [place], [place] [address] Performed By: #### 2 4323-8 ####[facility] LABCLIA [id number] [place] [id number] [place] ALT [Catalytic activity/Vol] 13 U/L Normal 7-38 [facility] Comment on above: Order Comment: Speci men Type: BLOOD SPECIMENOrdering Facility: [facility] Address: [address] [place] [address] Performed By: #### 2 4323-8 ####[facility] LABCLIA [id number] [place] [id number] [place] Anion gap [Moles/Vol] 11 mmol/L Normal 8-15 [facility] Comment on above: Order Comment: Speci men Type: BLOOD SPECIMENOrdering Facility: [facility] Address: [address] [place] [address] Performed By: #### 2 4323-8 ####[facility] LABCLIA [id number] [place] [address] [place] AST [Catalytic activity/Vol] 15 U/L Normal 13-35 [facility] Comment on above: Order Comment: Speci men Type: BLOOD SPECIMENOrdering Facility: [facility] Address: [address] [place] [address] Performed By: #### 2 4323-8 ####[facility] LABCLIA [id number] [place] [address] [place] Bilirubin [Mass/Vol] 0.2 mg/dL Normal 0.2-1.3 [facility] Comment on above: Order Comment: Speci men Type: BLOOD SPECIMENOrdering Facility: [facility] Address: [address] [place] [address] Performed By: #### 2 4323-8 ####[facility] LABCLIA [id number] [place] [address] [place] Calcium [Mass/Vol] 9.2 mg/dL Normal 8.5-10.2 [facility] Comment on above: Order Comment: Speci men Type: BLOOD SPECIMENOrdering Facility: [facility] Address: [address] [place] [address] Performed By: #### 2 4323-8 ####[facility] LABCLIA [id number] [place] [address] [place] Chloride [Moles/Vol] 105 mmol/L Normal 98-107 [facility] Comment on above: Order Comment: Speci men Type: BLOOD SPECIMENOrdering Facility: [facility] Address: [address] [place] [address] Performed By: #### 2 4323-8 ####[facility] LABCLIA [id number] [place] [address] [place] CO2 [Moles/Vol] 26 mmol/L Normal 22-30 [facility] Comment on above: Order Comment: Speci men Type: BLOOD SPECIMENOrdering Facility: [facility] Address: [address] [place] [address] Performed By: #### 2 4323-8 ####[facility] LABCLIA [id number] [place] [address] [place] Creatinine [Mass/Vol] 0.86 mg/dL Normal 0.58-0.96 [facility] Comment on above: Order Comment: Speci men Type: BLOOD SPECIMENOrdering Facility: [facility] Address: [address] [place] [address] Performed By: #### 2 4323-8 ####[facility] LABCLIA [id number] [place] [address] [place] Creatinine and Glomerular filtration rate.predicted panel (S/P/Bld) 87 mL/min/1.73m??? Normal >=60 [facility] Comment on above: Order Comment: Speci men Type: BLOOD SPECIMENOrdering Facility: [facility] Address: [address] [place] [address] Result Comment: Cristal mated Glomerular Filtration Rate (eGFR) is calculated using the 2020 CKD-EPI creatinine equation. This equation utilizes serum creatinine, sex, and age as parameters. The creatinine assay has traceable calibration to isotope dilution-mass spectrometry. Refer to KDIGO guidelines for clinical interpretation. In patients with unstable renal function, e.g. those with acute kidney injury, the eGFR may not accurately reflect actual GFR. Performed By: #### 2 4323-8 ####[facility] LABCLIA [id number] [place] [address] [place] Glucose [Mass/Vol] 100 mg/dL High 74-99 [facility] Comment on above: Order Comment: Speci men Type: BLOOD SPECIMENOrdering Facility: [facility] Address: [address] [place] [address] Result Comment: The [place] Diabetes Association (ADA) provides guidance for cutoff values for fasting glucose and random glucose. The ADA defines fasting as no caloric intake for at least 8 hours. Fasting plasma glucose results between 100 to 125 mg/dL indicate increased risk for diabetes (prediabetes).Fasting plasma glucose results greater than or equal to 126 mg/dL meet the criteria for diagnosis of diabetes. In the absence of unequivocal hyperglycemia, results should be confirmed by repeat testing. In a patient with classic symptoms of hyperglycemia or hyperglycemic crisis, random plasma glucose results greater than or equal to 200 mg/dL meet the criteria for diagnosis of diabetes.Reference: Standards of Medical Care in Diabetes 2016, [place] [employer]. Diabetes Care. 2016.39(Suppl 1). Performed By: #### 2 4323-8 ####[facility] LABCLIA [id number] [place] [address] [place] Potassium [Moles/Vol] 3.8 mmol/L Normal 3.7-5.1 [facility] Comment on above: Order Comment: Speci men Type: BLOOD SPECIMENOrdering Facility: [facility] Address: [address] [place] [address] Performed By: #### 2 4323-8 ####[facility] LABIA [id number] [place] [address] [place] Protein [Mass/Vol] 6.3 g/dL Normal 6.3-8.0 [facility] Comment on above: Order Comment: Speci men Type: BLOOD SPECIMENOrdering Facility: [facility] Address: [address] [place] [address] Performed By: #### 2 4323-8 ####[facility] LABCLIA [id number] [place] [address] [place] Sodium [Moles/Vol] 142 mmol/L Normal 136-144 [facility] Comment on above: Order Comment: Speci men Type: BLOOD SPECIMENOrdering Facility: [facility] Address: [address] [place] [address] Performed By: #### 2 4323-8 ####[facility] LABCLIA [id number] [place] [address] [place] Urea nitrogen [Mass/Vol] 6 mg/dL Low 7-21 [facility] Comment on above: Order Comment: Speci men Type: BLOOD SPECIMENOrdering Facility: [facility] Address: [address] [place] [address] Performed By: #### 2 4323-8 ####[facility] LABCLIA [id number] [place] [address] [place] HCV Ab Ser Qlon 02-28-2024 HCV Ab Ql (S) Positive Abnormal Negative [facility] Comment on above: Order Comment: Speci men Type: BLOOD SPECIMENOrdering Facility: [facility] Address: [address] [place] [address] Performed By: #### 1 1011-4, 49637-4 ####[facility] LABCLIA [id number] [place] [address] [place] HCV RNA SerPl MARY KAY+probe-aCnc on 02-28-2024 HCV RNA MARY KAY+probe Qn Not detected Normal HCV RNA not detected by PCR. [facility] Comment on above: Order Comment: Speci men Type: BLOOD SPECIMENOrdering Facility: [facility] Address: [address] [place] [address] Performed By: #### 1 1011-4, 22568-4 ####[facility] LABCLIA [id number] [place] [address] [place] HIV 1+2 Ab IA Qlon 4 HIV 1 and 2 Ab IA.rapid Nom (S/P/Bld) Normal [facility] Comment on above: Order Comment: Speci men Type: BLOOD SPECIMENOrdering Facility: [facility] Address: [address] [place] [address] Result Comment: Test not indicated. Performed By: #### 3 1201-7 ####[facility] LABCLIA [id number] [place] [address] [place] HIV 1+2 Ab+HIV1 p24 Ag IA Ql Non-Reactive Normal Nonreactive [facility] Comment on above: Order Comment: Speci men Type: BLOOD SPECIMENOrdering Facility: [facility] Address: [address] [place] [address] Performed By: #### 3 1201-7 ####[facility] LABCLIA [id number] [place] [address] [place] HIV immunoassay testing algorithm interpretation (S/P/Bld) [Interp] Normal [facility] Comment on above: Order Comment: Speci men Type: BLOOD SPECIMENOrdering Facility: [facility] Address: [address] [place] [address] Result Comment: No e vidence of HIV-1 or HIV-2 infection. Should recent infection be suspected, repeat testing may be considered 2-3 weeks after this draw.[place] Rev. Code 3701.243(E): This information has been disclosed to you from confidential records protected from disclosure by state law. ???You shall make no further disclosure of this information without the specific, written, and informed release of the individual to whom it pertains or as otherwise permitted by state law. A general authorization for the release of medical or other information is not sufficient for the purpose of the release of HIV test results or diagnoses. Performed By: #### 3 1201-7 ####[facility] LABCLIA [id number] [place] [address] [place] Abdomen/Pelvis W IV Cont ONL Yon 02-27-2024 Abdomen/Pelvis W IV Cont ONLY [facility] [address] [place], [place] [id number] Abdomen/Pelvis W IV Cont ONLY MR#: [id number] Acct: [id number] Name: PAT KNIGHT Rep #: [id number] : 1980 F 44 From: Katrin Nettles MD PCP: Dr. Maile Norman MD Status: REG ER Study: Abdomen/Pelvis W IV Cont ONLY Date of Exam: Exam# [id number] Ordering Dr: Cesar Meneses DO [id number] STUDY: CT ABDOMEN AND PELVIS WITH CONTRAST REASON FOR EXAM: Female, 44 years old patient with abdominal pain. RADIATION DOSAGE (If Supplied By Facility): CTDIvol = ( 9.83 ) mGy, DLP = ( 344.24 ) mGycm TECHNIQUE: Transaxial images were obtained from the dome of the diaphragm to the symphysis pubis without oral contrast. 75 mL of IV Isovue-370 was administered. Sagittal and coronal images were reconstructed. Individualized dose optimization techniques were used for this CT. COMPARISON: CT abdomen and pelvis dated January 06, 2024. FINDINGS: There is right lower lobe airspace disease and atelectasis suggesting possible pneumonia. The visualized portions of the heart are within normal limits. There is hepatomegaly with diffuse hepatic enlargement. Liver measures approximately 23.2 cm Normal gallbladder and extrahepatic biliary system. Normal spleen. Normal pancreas. Normal bilateral adrenal glands. Normal right kidney. Normal left kidney. There is some enhancement of the gastric mucosa suggesting acute gastritis. There is no obvious dilated bowel, ascites or pneumoperitoneum. There appears to be thickening of the garner of the proximal small bowel in left upper quadrant suggesting possible infectious or inflammatory enteritis. The mid and distal small bowel has a more normal appearance. There is stool and/or gas visible throughout the colon with scattered diverticula. There is non-visualization of the appendix. There is mild atherosclerotic calcification of the abdominal aorta, without a demonstrated aneurysm. Normal inferior vena cava. Normal retroperitoneum. Normal urinary bladder. The uterus appears to have several enhancing nodules suggesting uterine leiomyomata. Normal abdominal wall. Normal osseous structures. CT/Abdomen/Pelvis W IV Cont ONLY IMPRESSION: 1. Right lower lobe airspace disease suggests pneumonia. 2. Findings suggest possible acute gastritis and infectious or inflammatory enteritis. 3. Hepatomegaly. Electronically Signed: Katrin Nettles MD at 3:58 EDT , CC: Dr. Maile Norman MD; Cesar Meneses DO Behaviour Support Teacher: Signed Normal [facility] Basic Metabolic Profile (BMP )on 02-27-2024 BUN/CRE 9.2 RATIO Low 10-20 [facility] Comment on above: Performed By: #### L 500.2500, L100.0100 ####[facility] [address] [place], [address] CA,Total 8.9 mg/dL Normal 8.5-10.1 [facility] Comment on above: Performed By: #### L 500.2500, L100.0100 ####[facility] [address] [place], [address] Chloride [Moles/Vol] 105 mmol/L Normal 98-107 [facility] Comment on above: Performed By: #### L 500.2500, L100.0100 ####[facility] [address] [place], [address] CO2 [Moles/Vol] 28.0 mmol/L Normal 21.0-32.0 [facility] Comment on above: Performed By: #### L 500.2500, L100.0100 ####[facility] [address] [place], [address] Creatinine [Mass/Vol] 0.76 mg/dL Normal 0.55-1.02 [facility] Comment on above: Result Comment: The validity of the calculated GFR GFRAA in patients over 70 years has not been determined. Clinical correlation is essential. Performed By: #### L 500.2500, L100.0100 ####[facility] [address] [place], [address] ECRCL 86.77 ml/min Normal [facility] Comment on above: Performed By: #### L 500.2500, L100.0100 ####[facility] [address] [place], [address] EST GFR - AA 107 mL/min Normal >60 [facility] Comment on above: Result Comment: Afri can [place] GFR Calc Performed By: #### L 500.2500, L100.0100 ####[facility] [address] [place], [address] GAP 6 Normal 5-15 [facility] Comment on above: Performed By: #### L 500.2500, L100.0100 ####[facility] [address] [place], [address] GFR/1.73 sq M.predicted among non-blacks MDRD (S/P/Bld) [Vol rate/Area] 88 mL/min/{1.73_m2} Normal >60 [facility] Comment on above: Result Comment: Non- GFR Calc Performed By: #### L 500.2500, L100.0100 ####[facility] [address] [place], [address] Glucose [Mass/Vol] 96 mg/dL Normal 74-106 [facility] Comment on above: Performed By: #### L 500.2500, L100.0100 ####[facility] [address] [place], [address] Potassium [Moles/Vol] 3.2 mmol/L Low 3.5-5.1 [facility] Comment on above: Performed By: #### L 500.2500, L100.0100 ####[facility] [address] [place], [address] Sodium [Moles/Vol] 139 mmol/L Normal 136-145 [facility] Comment on above: Performed By: #### L 500.2500, L100.0100 ####[facility] [address] [place], [address] Urea nitrogen [Mass/Vol] 7 mg/dL Normal 7-18 [facility] Comment on above: Performed By: #### L 500.2500, L100.0100 ####[facility] [address] [place], [address] CBC W/Diff, Automatedon 09-0 2-2024 Absolute Lymph 4.87 X10 3/uL High 0.83-4.51 [facility] Comment on above: Performed By: #### L 500.2500, L100.0100 ####[facility] [address] [place], [address] Absolute Neut 7.7 X10 3/uL Normal 2.0-7.7 [facility] Comment on above: Performed By: #### L 500.2500, L100.0100 ####[facility] [address] [place], [address] Nucleated RBC (Bld) [#/Vol] 0 10*3/uL Normal 0-5 [facility] Comment on above: Performed By: #### L 500.2500, L100.0100 ####[facility] [address] [place], [address] Basophils/100 WBC (Bld) 0.9 % Normal 0-1 [facility] Comment on above: Performed By: #### L 500.2500, L100.0100 ####[facility] [address] [place], [address] Eosinophils/100 WBC (Bld) 1.4 % Normal 0-5 [facility] Comment on above: Performed By: #### L 500.2500, L100.0100 ####[facility] [address] [place], [address] Erythrocyte distribution width (RBC) [Ratio] 12.7 % Normal 11.6-14.6 [facility] Comment on above: Performed By: #### L 500.2500, L100.0100 ####[facility] [address] [place], [address] Hematocrit (Bld) [Volume fraction] 39.2 % Normal 37-47 [facility] Comment on above: Performed By: #### L 500.2500, L100.0100 ####[facility] [address] [place], [address] Hemoglobin (Bld) [Mass/Vol] 13.5 g/dL Normal 12.0-15.0 [facility] Comment on above: Performed By: #### L 500.2500, L100.0100 ####[facility] [address] [place], [address] IG% 0.300 Normal 0.0-0.9 [facility] Comment on above: Result Comment: IG% - Immature Granulocytes (promyelocytes, myelocytes and metamyelocytes) > 1% indicates that a LEFT SHIFT is Present. Performed By: #### L 500.2500, L100.0100 ####[facility] [address] [place], [address] Lymphocytes/100 WBC (Bld) 34.8 % Normal 19-41 [facility] Comment on above: Performed By: #### L 500.2500, L100.0100 ####[facility] [address] [place], [address] MCH (RBC) [Entitic mass] 32.8 pg High 27.0-32.0 [facility] Comment on above: Performed By: #### L 500.2500, L100.0100 ####[facility] [address] [place], [address] MCHC (RBC) [Mass/Vol] 34.4 g/dL Normal 32-36 [facility] Comment on above: Performed By: #### L 500.2500, L100.0100 ####[facility] [address] [place], [address] MCV (RBC) [Entitic vol] 95.4 fL Normal 81-99 [facility] Comment on above: Performed By: #### L 500.2500, L100.0100 ####[facility] [address] [place], [address] Monocytes/100 WBC (Bld) 7.8 % Normal 0-10 [facility] Comment on above: Performed By: #### L 500.2500, L100.0100 ####[facility] [address] [place], [address] Neutrophils/100 WBC (Bld) 54.8 % Normal 47-70 [facility] Comment on above: Performed By: #### L 500.2500, L100.0100 ####[facility] [address] [place], [address] Platelet mean volume (Bld) [Entitic vol] 10.4 fL Normal 6.2-12.0 [facility] Comment on above: Performed By: #### L 500.2500, L100.0100 ####[facility] [address] [place], [address] Platelets (Bld) [#/Vol] 317 10*3/uL Normal 150-450 [facility] Comment on above: Performed By: #### L 500.2500, L100.0100 ####[facility] [address] [place], [address] RBC (Bld) [#/Vol] 4.11 10*6/uL Low 4.2-5.4 [facility] Comment on above: Performed By: #### L 500.2500, L100.0100 ####[facility] [address] [place], [address] RDW SD 43.9 fl Normal 35.1-43.9 [facility] Comment on above: Performed By: #### L 500.2500, L100.0100 ####[facility] [address] [place], [address] WBC (Bld) [#/Vol] 14.0 10*3/uL High 4.4-11.0 [facility] Comment on above: Performed By: #### L 500.2500, L100.0100 ####[facility] [address] [place], [address] Emergency Department Summary on 02-27-2024 Emergency Department Summary [facility] Medical Records Department [address] [place] [address] Emergency Department Summary 02/27/24 MR#: [id number] Acct: [id number] Name: PAT KNIGHT Rep #: [id number] : 1980 44 From: Iain Reina DO PCP: Dr. Maile Norman MD Status:REG ER Location: ED HPI History of Present Illness Chief Complaint: Shortness of Breath PFSH PFSH Medical History Right rotator cuff tear Wears partial dentures Hepatitis Smoker History of echocardiogram History of stress test Cardiology follow-up encounter History of CHF (congestive heart failure) Esophageal tear Anxiety Home Medications ???Medication ???Instructions ???Recorded ???Last Taken ???Type trazodone 100 mg tablet 100 mg PO QHS 01/03/17 06/06/22 History oxycodone-acetaminoph en 5 mg-325 1 tab PO Q6H PRN PRN Pain 3 days 09/04/22 Unknown Rx mg tablet #12 TABLETS inhalational spacing device 10/09/23 Unknown History (BreatheRite MDI Spacer) meloxicam 15 mg tablet 15 mg PO DAILY 01/01/24 Unknown History albuterol sulfate 90 mcg/actuation 2 puff inhalation Q4H PRN PRN 01/06/24 Unknown History aerosol inhaler wheezing alprazolam 0.5 mg tablet 0.5 mg PO DAILY PRN panic attack 02/27/24 Unknown History amitriptyline 10 mg tablet 10 mg PO QHS 02/27/24 Unknown History amoxicillin 875 mg-potassium 1 tab PO BID 7 days #14 tabs 02/27/24 Unknown Rx clavulanate 125 mg tablet azithromycin 250 mg tablet See Rx Instructions PO .COMPLEX #6 02/27/24 Unknown Rx (Zithromax Z-Hernan) tabs gabapentin 300 mg capsule 300 mg PO TID 02/27/24 Unknown History lidocaine 5 % topical patch 1 patch topical Q24H 02/27/24 Unknown History nystatin 100,000 unit/mL oral 5 ml PO Q6H 02/27/24 Unknown History suspension sulfamethoxazole 800 1 tab PO BID 7 days #14 tabs 02/27/24 Unknown Rx mg-trimethoprim 160 mg tablet (Bactrim DS) tizanidine 4 mg tablet 4 mg PO Q6H PRN PRN muscle 02/27/24 Unknown History relaxation Allergy/AdvReac Type Severity Reaction Status Date / Time escitalopram (From Lexapro) Allergy Other Verified 02/27/24 16:57 lamotrigine (From Lamictal) Allergy Hives Verified 02/27/24 16:57 nitrofurantoin (From Allergy Unknown Verified 02/27/24 16:57 Macrobid) nitrofurantoin Allergy Unknown Verified 02/27/24 16:57 macrocrystalline (From Macrobid) codeine AdvReac Nausea Verified 02/27/24 16:57 Surgical History Hx of surgical procedure Hx of removal of ovary History of tonsillectomy and adenoidectomy Social History household members: family housing: house Smoking Status: Current every day smoker tobacco type: cigarettes EXAM Physical Exam Const Vital Signs: 02/27/24 16:57 Temperature 97 F L Temperature Source Temporal Pulse Rate 92 Respiratory Rate 22 H Blood Pressure 136/90 H Blood Pressure Mean 105 Pulse Ox 100 Oxygen Delivery Method Room Air MDM MDM MDM Narrative Medical decision making narrative: HISTORY OF PRESENT ILLNESS: 44-year-old female presents with multiple complaints including shortness of breath headache and not feeling good. When asked what brought her into the ED today she did not mention shortness of breath, headache or chest pain. She endorsed right lower abdominal/groin pain. States has been ongoing for several days to weeks. Denies any urinary complaints. Denies any change in bowel habits. No recent travel or strange foods. Notes she received antibiotics earlier to treat enteritis and pneumonia however all pharmacies are closed and she cannot fill her antibiotic prescription. The patient denies recent surgery in the last 4 weeks or immobilization in the last 3 days, denies previous diagnosis of DVT or PE, hemoptysis, unilateral leg swelling or malignancy with treatment the last 6 months or palliative. No estrogen use noted. REVIEW OF SYSTEMS: Pertinent positives: Right lower quadrant abdominal pain Pertinent negatives: Vomiting, fever, chest pain, shortness of breath, headache PHYSICAL EXAM: Nursing triage notes reviewed, Vital signs reviewed Constitutional: please see mdm HENT: MMM Eyes: Pupils equal round and reactive to light, Extraocular muscles intact Neck: No stridor, no JVD, full neck ROM Lungs: Clear to auscultation, No wheezing or rales. No increased work of breathing, no conversational dyspnea, no accessory muscle use, no nasal flaring. No respiratory distress noted Heart: Regular rate and rhythm, No murmurs, No rubs and No gallops, 2+ distal pulses (radial, femoral, posterior tibial) in all extremities Abdomen: Soft, there is no tenderness, rigidity, rebound or guar (more content not included)... Normal [facility] Emergency Department Summary [facility] Medical Records Department [address] [place] [address] Emergency Department Summary 02/27/24 MR#: [id number] Acct: [id number] Name: PAT KNIGHT Rep #: [id number] : 1980 44 From: Cesar Meneses DO PCP: Dr. Maile Norman MD Status:DEP ER Location: ED HPI History of Present Illness Chief Complaint: Back Informant: patient and spouse/S.O. Narrative Narrative: Patient is a 44-year-old female with past medical history of anxiety and chronic pain secondary to rotator cuff injury. She states that over the last days she has had pain radiating from her low back into the left side of her abdomen and she is feeling bloated with this. She states she has also had a nonproductive cough at home and has noticed some pain shooting down the abdomen into the right leg. She states has been no trauma or excessive activity. She denies any loss of bowel or bladder control or IV drug use. She states she has been no hematuria and she denies any concern for . She states she takes Percocet on a daily basis because of her chronic shoulder pain and there has been no improvement with her home medications and therefore she comes in for evaluation [facility] Medical History Right rotator cuff tear Wears partial dentures Hepatitis Smoker History of echocardiogram History of stress test Cardiology follow-up encounter History of CHF (congestive heart failure) Esophageal tear Anxiety Home Medications ???Medication ???Instructions ???Recorded ???Last Taken ???Type trazodone 100 mg tablet 100 mg PO QHS 01/03/17 06/06/22 History oxycodone-acetaminoph en 5 mg-325 1 tab PO Q6H PRN PRN Pain 3 days 09/04/22 Unknown Rx mg tablet #12 TABLETS inhalational spacing device 10/09/23 Unknown History (BreatheRite MDI Spacer) meloxicam 15 mg tablet 15 mg PO DAILY 01/01/24 Unknown History albuterol sulfate 90 mcg/actuation 2 puff inhalation Q4H PRN PRN 01/06/24 Unknown History aerosol inhaler wheezing alprazolam 0.5 mg tablet 0.5 mg PO DAILY PRN panic attack 02/27/24 Unknown History amitriptyline 10 mg tablet 10 mg PO QHS 02/27/24 Unknown History azithromycin 250 mg tablet See Rx Instructions PO .COMPLEX #6 02/27/24 Unknown Rx (Zithromax Z-Hernan) tabs gabapentin 300 mg capsule 300 mg PO TID 02/27/24 Unknown History lidocaine 5 % topical patch 1 patch topical Q24H 02/27/24 Unknown History nystatin 100,000 unit/mL oral 5 ml PO Q6H 02/27/24 Unknown History suspension sulfamethoxazole 800 1 tab PO BID 7 days #14 tabs 02/27/24 Unknown Rx mg-trimethoprim 160 mg tablet (Bactrim DS) tizanidine 4 mg tablet 4 mg PO Q6H PRN PRN muscle 02/27/24 Unknown History relaxation Allergy/AdvReac Type Severity Reaction Status Date / Time escitalopram (From Lexapro) Allergy Other Verified 02/27/24 01:15 lamotrigine (From Lamictal) Allergy Hives Verified 02/27/24 01:15 nitrofurantoin (From Allergy Unknown Verified 02/27/24 01:15 Macrobid) nitrofurantoin Allergy Unknown Verified 02/27/24 01:15 macrocrystalline (From Macrobid) codeine AdvReac Nausea Verified 02/27/24 01:15 Surgical History Hx of surgical procedure Hx of removal of ovary History of tonsillectomy and adenoidectomy Social History household members: family housing: house Smoking Status: Current every day smoker tobacco type: cigarettes ROS ROS ED Constitutional Constitutional ED: Denies chills or fever(s) ENT ENT ED: Denies sore throat Cardiovascular Cardiovascular: Denies chest pain Respiratory/Chest Respiratory/Chest: Reports cough; Denies dyspnea Gastrointestinal Gastrointestinal: Reports abdominal pain and nausea; Denies constipation, diarrhea or vomiting Genitourinary Genitourinary ED: Denies dysuria or hematuria Musculoskeletal Musculoskeletal: Reports back pain Integumentary Denies rash Neurologic Neurologic: Denies headache(s) Hematologic/Lymphatic Hematologic/Lymphatic : Denies easy bleeding or easy bruising EXAM Physical Exam Const Vital Signs: 02/27/24 01:13 02/27/24 02:05 02/27/24 04:00 Temperature 97.6 F L 98.2 F Temperature Source Oral Pulse Rate 87 65 90 Respiratory Rate 16 18 16 Blood Pressure 128/89 H 130/84 H 121/84 H Blood Pressure Mean 102 99 96 Pulse Ox 99 99 100 Oxygen Delivery Method Room Air Room Air Positive well nourished and well developed General Appearance ED: well developed; Negative for pallor HEENT HEENT Narrative: No signs of infection noted in the posterior pharynx Eyes PERRL and EOMs intact bilaterally General Eye ED: Negative for scleral icterus Neck supple Resp n (more content not included)... Normal [facility] ,Urineon 02-27-2024 Beta HCG ( test) Ql (U) Negative Normal [facility] Comment on above: Order Comment: COLLE CTOR TO SPECIFY Result Comment: Very dilute urine specimens, as indicated by a low specific gravity, may not contain customer counter representative levels of hCG. If is still suspected, a first morning urine specimen should be collected 48 hours later and tested. Performed By: #### L 100.0100, L501.2450, L500.4050, L700.6800 #### [facility] Laboratory [address] [place], [address] Urinalysis, Completeon 02-26 BACTERIA 0 SEEN Normal None Seen [facility] Comment on above: Order Comment: CANDIDO CTOR TO SPECIFY Performed By: #### L 100.0100, L501.2450, L500.4050, L700.6800 #### [facility] Laboratory [address] [place], [address] EPI,SQUAMOUS 0 SEEN Normal 5-10 [facility] Comment on above: Order Comment: CANDIDO CTOR TO SPECIFY Performed By: #### L 100.0100, L501.2450, L500.4050, L700.6800 #### [facility] Laboratory [address] [place], [address] Mucus Ql (Urine sed) 0 SEEN Normal [facility] Comment on above: Order Comment: CANDIDO CTOR TO SPECIFY Performed By: #### L 100.0100, L501.2450, L500.4050, L700.6800 #### [facility] Laboratory [address] [place], [address] RBC 0 SEEN Normal 0-5 [facility] Comment on above: Order Comment: CANDIDO CTOR TO SPECIFY Performed By: #### L 100.0100, L501.2450, L500.4050, L700.6800 #### [facility] Laboratory [address] [place], [address] WBC 0 SEEN Normal 0-5 [facility] Comment on above: Order Comment: CANDIDO CTOR TO SPECIFY Performed By: #### L 100.0100, L501.2450, L500.4050, L700.6800 #### [facility] Laboratory [address] [place], [address] CNOVon 02-16-2024 CNOV Normal [facility] CNPNon 02-13-2024 CNPN Normal [facility] CNOVon 02-07-2024 CNOV Office Visit (AGHWW1 ) PAT KNIGHT ([id number]) 1980 F Date Time Provider Department 02/07/24 3:15 PM LOUIS VALENCIA AGHWW1 During your visit today, we recorded the following information about you: Respiration Weight Height 16/minute 56.7 kg 1.651 m Louis Valencia MD 02/17/2024 10:26 AM Signed PAIN EVALUATION 02/07/2024 1504 Pain Level: 6 Description: Aching Frequency: Continuous Encounter Diagnosis ICD-10-CM 1. S/P right rotator cuff repair Z98.890 MRI SHOULDER WO IVCON RIGHT 2. Right shoulder pain, unspecified chronicity M25.511 MRI SHOULDER WO IVCON RIGHT Pat Knight returns today with significant pain and worsening weakness in her right shoulder. She underwent arthroscopic rotator cuff repair of the right shoulder in May 2023 but was lost to follow-up during her recovery. She states that she lost coverage and was unable to return for visits. She recalls that just a few days after surgery she jerked the arm up and had significant pain, not improved since that time. EXAM: I examined her right shoulder today. She has significant pain and guarding throughout the exam. She can only actively elevate about 90 degrees before pain limits her. Passive motion above 90 degrees also gives her pain. She has significant weakness to resisted forward elevation with severe pain in the anterolateral shoulder. Rotational movement with the arm the side does not give her pain but once the arm is abducted the rotational motion becomes increasingly painful. PLAN: We discussed her shoulder today, based on the level of weakness and pain recommended MRI to evaluate for possible failure of healing or recurrent rotator cuff tearing as a cause for continued pain and weakness in the shoulder. After this is obtained she should return to see me for discussion of the results and possible treatment planning including revision surgery. Patient may use the shoulder for all activities as tolerated in the meantime. Gentle home stretching was recommended. Large Joint Arthro/Inj: R shoulder joint 02/07/2024 3:27 PM The procedure site was prepped in the usual sterile fashion. Site: R shoulder joint Medications: 80 mg triamcinolone acetonide 40 mg/mL Anesthetics: 4 mL bupivacaine (PF) 0.25 % (2.5 mg/mL) Outcome: Tolerated well, no immediate complications Post-injection instructions were reviewed with the patient and the patient voiced understanding of these instructions. Louis Valencia MD Shoulder AND Elbow Surgeon Department of Orthopaedic Surgery [facility] Merline Carson LPN 02/17/2024 10:26 AM Signed Injection prepared per Dr. Valencia's order and handed directly to him. Injection site: right shoulder Merline Carson LPN Referring Provider: SELF [[id number]] Allergies As of Date: 02/07/2024 Noted Allergy Reaction PAMPRIN MULTI-SYMPTOM (ACETAMINOP* 7 2 - Rash 9 - Itching 12 - Shortness of Breath Comments: Severe itching all over body, slight rash, hyper ventilating, lips swelled badly BUSPAR (BUSPIRONE) 11/12/2020 1 - Mental Status Change Comments: Caused suicidal thoughts CODEINE 02/03/2007 4 - Hives 9 - Itching LAMOTRIGINE 01/03/2017 4 - Hives NITROFURANTOIN MACROCRYSTAL 12/24/2014 16 - Unknown PROMETHAZINE-PHENYLEP HRINE 04/27/2010 5 - Intolerance Comments: Make her feel like passing out Date Reviewed: 02/07/2024 Reviewed by: Maureen Alcaraz LPN - Fully Assessed Reason for Visit: Established Patient [175] Primary Visit Diagnosis:S/P right rotator cuff repair [Z98.890] Other Visit Diagnosis:Right shoulder pain, unspecified chronicity [M25.511] Order(s):MRI SHOULDER WO IVCON RIGHT [[id number]] Order #: [id number] FUTURE Large Joint Arthro/Inj: R shoulder joint [SYG703] Order #: [id number] [] bupivacaine (PF) 0.25 % (2.5 mg/mL) 4 mL injection (SENSORCAINE MPF)Disp: Rfl: [] triamcinolone acetonide 80 mg injection (KeNALog 40)Disp: Rfl: Prescriptions as of 02/17/2024 - nystatin (MYCOSTATIN) 100,000 unit/mL suspension Take 5 mL by mouth four times daily. 1tsp swish in mouth for several minutes, then swallow (or expectorate) 4 times daily until gone. - oxyCODONE-acetaminoph en (PERCOCET) 5-325 mg tablet Take 1 tablet by mouth every 6 hours as needed for pain for up to 14 days. - gabapentin (NEURONTIN) 300 mg capsule Take 1 capsule by mouth three times a day for 90 days. - lidocaine (LIDODERM) 5 % Apply 1 Patch as directed every 24 hours. Wear patch for 12 hours and then remove for 12 hours prior to placing new patch, apply to the right shoulder area. - tiZANidine (ZANAFLEX) 4 mg tablet Take 1 tablet by mouth every 6 hours as needed. For muscle tightness/pain (muscle relaxer) - meloxicam (MOBIC) 15 mg tablet Take 1 tablet by mouth once daily. With (more content not included)... Normal [facility] Large Joint Arthro/Inj: R sh oulder jointon 02-07-2024 Louis Valencia MD 02/17/2024 10:26 AM Large Joint Arthro/Inj: R shoulder joint 02/07/2024 3:27 PM The procedure site was prepped in the usual sterile fashion. Site: R shoulder joint Medications: 80 mg triamcinolone acetonide 40 mg/mL Anesthetics: 4 mL bupivacaine (PF) 0.25 % (2.5 mg/mL) Outcome: Tolerated well, no immediate complications Post-injection instructions were reviewed with the patient and the patient voiced understanding of these instructions. [facility] CNOVon 01-25-2024 CNOV Normal [facility] CNPNon 01-23-2024 CNPN Normal [facility] CNPNon 01-16-2024 CNPN Normal [facility] CNOVon 01-11-2024 CNOV Normal [facility] CNPTOUTREACHon 01-11-2024 CNPTOUTREACH Normal [facility] CNPNon 01-09-2024 CNPN Normal [facility] Abdomen/Pelvis W IV Cont ONL Yon 01-06-2024 Abdomen/Pelvis W IV Cont ONLY [facility] Imaging Services [address] [place], [place] [address] Abdomen/Pelvis W IV Cont ONLY MR#: [id number] Acct: [id number] Name: PAT KNIGHT Rep #: [id number] : 1980 F 43 From: Kofi Ventura MD PCP: Dr. Maile Norman MD Status: REG ER Study: Abdomen/Pelvis W IV Cont ONLY Date of Exam: Exam# [id number] Ordering Dr: Arturo Craig DO [id number] EXAM: CT ABDOMEN AND PELVIS WITH INTRAVENOUS CONTRAST CLINICAL INDICATION: llq abdominal pain TECHNIQUE: Helically acquired images were obtained of the abdomen and pelvis with intravenous contrast. This CT exam was performed using one or more of the following dose reduction techniques: automated exposure control, adjustment of the mA and/or kV according to patient size, and/or use of iterative reconstruction technique. CONTRAST: IV 100mL Isovue-370 RADIATION DOSE: CTDIvol = 8.27 mGy, DLP = 324.34 mGy-cm COMPARISON: CT abdomen and pelvis 10/09/2023 FINDINGS: LOWER THORAX: Unremarkable. Lung bases are clear. No cardiomegaly. No significant pericardial effusion. ABDOMEN: LIVER: Unremarkable. Homogeneous. No focal mass. GALLBLADDER AND BILE DUCTS: Unremarkable. No calcified gallstones. No gallbladder distention or wall edema. No intra- or extrahepatic biliary ductal dilation. PANCREAS: Unremarkable. No focal cystic or solid mass. SPLEEN: Unremarkable. Normal size without focal cystic or solid mass. ADRENALS: Unremarkable. No nodules. KIDNEYS AND URETERS: Unremarkable. Normal renal size and position. No hydronephrosis. STOMACH AND BOWEL: Multiple loops of proximal to mid small bowel demonstrate some wall and fold thickening. No bowel obstruction. PELVIS: APPENDIX: The appendix is normal. BLADDER: Unremarkable. REPRODUCTIVE: Unremarkable as visualized. No mass. ABDOMEN and PELVIS: INTRAPERITONEAL SPACE: Unremarkable. No ascites or other fluid collection. No free air. BONES/JOINTS: Unremarkable. No suspicious lytic or blastic abnormality. SOFT TISSUES: Unremarkable. No discrete abdominal or pelvic wall hernia. VASCULATURE: Unremarkable. Abdominal aorta is non-dilated. LYMPH NODES: Unremarkable. No enlarged lymph nodes. CT/Abdomen/Pelvis W IV Cont ONLY IMPRESSION: Multiple loops of proximal to mid small bowel demonstrate some wall and fold thickening. This could indicate an infectious or inflammatory enteritis. Electronically Signed: Kofi Ventura MD at 23:56 EDT , CC: Dr. Arturo Craig DO; Dr. Maile Norman MD Behaviour Support Teacher: Signed Normal [facility] CBC W/Diff, Automatedon 12-25 Absolute Lymph 3.85 X10 3/uL Normal 0.83-4.51 [facility] Comment on above: Performed By: #### L 700.6800, L100.0100, L501.2450, L500.4050 ####[facility] [address] [place], [address] Absolute Neut 8.8 X10 3/uL High 2.0-7.7 [facility] Comment on above: Performed By: #### L 700.6800, L100.0100, L501.2450, L500.4050 ####[facility] [address] [place], [address] Basophils/100 WBC (Bld) 0.5 % Normal 0-1 [facility] Comment on above: Performed By: #### L 700.6800, L100.0100, L501.2450, L500.4050 ####[facility] [address] [place], [address] Eosinophils/100 WBC (Bld) 1.2 % Normal 0-5 [facility] Comment on above: Performed By: #### L 700.6800, L100.0100, L501.2450, L500.4050 ####[facility] [address] [place], [address] Erythrocyte distribution width (RBC) [Ratio] 12.3 % Normal 11.6-14.6 [facility] Comment on above: Performed By: #### L 700.6800, L100.0100, L501.2450, L500.4050 ####[facility] [address] [place], [address] Hematocrit (Bld) [Volume fraction] 41.8 % Normal 37-47 [facility] Comment on above: Performed By: #### L 700.6800, L100.0100, L501.2450, L500.4050 ####[facility] [address] [place], [address] Hemoglobin (Bld) [Mass/Vol] 14.3 g/dL Normal 12.0-15.0 [facility] Comment on above: Performed By: #### L 700.6800, L100.0100, L501.2450, L500.4050 ####[facility] [address] [place], [address] IG% 0.300 Normal 0.0-0.9 [facility] Comment on above: Result Comment: IG% - Immature Granulocytes (promyelocytes, myelocytes and metamyelocytes) > 1% indicates that a LEFT SHIFT is Present. Performed By: #### L 700.6800, L100.0100, L501.2450, L500.4050 ####[facility] [address] [place], [address] Lymphocytes/100 WBC (Bld) 28.0 % Normal 19-41 [facility] Comment on above: Performed By: #### L 700.6800, L100.0100, L501.2450, L500.4050 ####[facility] [address] [place], [address] MCH (RBC) [Entitic mass] 31.7 pg Normal 27.0-32.0 [facility] Comment on above: Performed By: #### L 700.6800, L100.0100, L501.2450, L500.4050 ####[facility] [address] [place], [address] MCHC (RBC) [Mass/Vol] 34.2 g/dL Normal 32-36 [facility] [place] Comment on above: Performed By: #### L 700.6800, L100.0100, L501.2450, L500.4050 ####[facility] [address] [place], [address] MCV (RBC) [Entitic vol] 92.7 fL Normal 81-99 [facility] Comment on above: Performed By: #### L 700.6800, L100.0100, L501.2450, L500.4050 ####[facility] [address] [place], [address] Monocytes/100 WBC (Bld) 6.0 % Normal 0-10 [facility] Comment on above: Performed By: #### L 700.6800, L100.0100, L501.2450, L500.4050 ####[facility] [address] [place], [address] Neutrophils/100 WBC (Bld) 64.0 % Normal 47-70 [facility] Comment on above: Performed By: #### L 700.6800, L100.0100, L501.2450, L500.4050 ####[facility] [address] [place], [address] Nucleated RBC (Bld) [#/Vol] 0 10*3/uL Normal 0-5 [facility] Comment on above: Performed By: #### L 700.6800, L100.0100, L501.2450, L500.4050 ####[facility] [address] [place], [address] Platelet mean volume (Bld) [Entitic vol] 9.5 fL Normal 6.2-12.0 [facility] Comment on above: Performed By: #### L 700.6800, L100.0100, L501.2450, L500.4050 ####[facility] [address] [place], [address] Platelets (Bld) [#/Vol] 333 10*3/uL Normal 150-450 [facility] Comment on above: Performed By: #### L 700.6800, L100.0100, L501.2450, L500.4050 ####[facility] [address] [place], [address] RBC (Bld) [#/Vol] 4.51 10*6/uL Normal 4.2-5.4 [facility] Comment on above: Performed By: #### L 700.6800, L100.0100, L501.2450, L500.4050 ####[facility] [address] [place], [address] RDW SD 42.0 fl Normal 35.1-43.9 [facility] Comment on above: Performed By: #### L 700.6800, L100.0100, L501.2450, L500.4050 ####[facility] [address] [place], [address] WBC (Bld) [#/Vol] 13.8 10*3/uL High 4.4-11.0 [facility] Comment on above: Performed By: #### L 700.6800, L100.0100, L501.2450, L500.4050 ####[facility] [address] [place], [address] Comprehensive Metabolic Prof ilon 01-06-2024 Albumin [Mass/Vol] 3.5 g/dL Normal 3.2-5.0 [facility] Comment on above: Performed By: #### L 700.6800, L100.0100, L501.2450, L500.4050 ####[facility] [address] [place], [address] Albumin/Globulin [Mass ratio] 1.1 {ratio} Normal 0.9-2.4 [facility] Comment on above: Performed By: #### L 700.6800, L100.0100, L501.2450, L500.4050 ####[facility] [address] [place], [address] ALK P 63 U/L Normal 45-117 [facility] Comment on above: Performed By: #### L 700.6800, L100.0100, L501.2450, L500.4050 ####[facility] [address] [place], [address] ALT [Catalytic activity/Vol] 12 U/L Low 13-56 [facility] Comment on above: Performed By: #### L 700.6800, L100.0100, L501.2450, L500.4050 ####[facility] [address] [place], [address] AST [Catalytic activity/Vol] 9 U/L Low 15-37 [facility] Comment on above: Performed By: #### L 700.6800, L100.0100, L501.2450, L500.4050 ####[facility] [address] [place], [address] Bilirubin [Mass/Vol] 0.40 mg/dL Normal 0.20-1.00 [facility] Comment on above: Result Comment: For patients on eltrombopag therapy, use of Dimension [place] TBIL is not recommended. Performed By: #### L 700.6800, L100.0100, L501.2450, L500.4050 ####[facility] [address] [place], [address] BUN/CRE 8.4 RATIO Low 10-20 [facility] Comment on above: Performed By: #### L 700.6800, L100.0100, L501.2450, L500.4050 ####[facility] [address] [place], [address] CA,Total 8.9 mg/dL Normal 8.5-10.1 [facility] Comment on above: Performed By: #### L 700.6800, L100.0100, L501.2450, L500.4050 ####[facility] [address] [place], [address] Chloride [Moles/Vol] 107 mmol/L Normal 98-107 [facility] Comment on above: Performed By: #### L 700.6800, L100.0100, L501.2450, L500.4050 ####[facility] [address] [place], [address] CO2 [Moles/Vol] 26.0 mmol/L Normal 21.0-32.0 [facility] Comment on above: Performed By: #### L 700.6800, L100.0100, L501.2450, L500.4050 ####[facility] [address] [place], [address] Creatinine [Mass/Vol] 0.95 mg/dL Normal 0.55-1.02 [facility] [place] Comment on above: Result Comment: The validity of the calculated GFR GFRAA in patients over 70 years has not been determined. Clinical correlation is essential. Performed By: #### L 700.6800, L100.0100, L501.2450, L500.4050 ####[facility] [address] [place], [address] ECRCL 68.47 ml/min Normal [facility] Comment on above: Performed By: #### L 700.6800, L100.0100, L501.2450, L500.4050 ####[facility] [address] [place], [address] EST GFR - AA 83 mL/min Normal >60 [facility] Comment on above: Result Comment: Afri can [place]ian GFR Calc Performed By: #### L 700.6800, L100.0100, L501.2450, L500.4050 ####[facility] [address] [place], [address] GAP 5 Normal 5-15 [facility] Comment on above: Performed By: #### L 700.6800, L100.0100, L501.2450, L500.4050 ####[facility] [address] [place], [address] GFR/1.73 sq M.predicted among non-blacks MDRD (S/P/Bld) [Vol rate/Area] 69 mL/min/{1.73_m2} Normal >60 [facility] Comment on above: Result Comment: Non- GFR Calc Performed By: #### L 700.6800, L100.0100, L501.2450, L500.4050 ####[facility] [address] [place], [address] Globulin (S) [Mass/Vol] 3.1 g/dL Normal 2.2-4.2 [facility] Comment on above: Performed By: #### L 700.6800, L100.0100, L501.2450, L500.4050 ####[facility] [address] [place], [address] Glucose [Mass/Vol] 80 mg/dL Normal 74-106 [facility] Comment on above: Performed By: #### L 700.6800, L100.0100, L501.2450, L500.4050 ####[facility] [address] [place], [address] Potassium [Moles/Vol] 3.6 mmol/L Normal 3.5-5.1 [facility] [place] Comment on above: Performed By: #### L 700.6800, L100.0100, L501.2450, L500.4050 ####[facility] [address] [place], [address] Sodium [Moles/Vol] 138 mmol/L Normal 136-145 [facility] Comment on above: Performed By: #### L 700.6800, L100.0100, L501.2450, L500.4050 ####[facility] [address] [place], [address] T PROT 6.6 g/dL Normal 6.4-8.2 [facility] Comment on above: Performed By: #### L 700.6800, L100.0100, L501.2450, L500.4050 ####[facility] [address] [place], [address] Urea nitrogen [Mass/Vol] 8 mg/dL Normal 7-18 [facility] Comment on above: Performed By: #### L 700.6800, L100.0100, L501.2450, L500.4050 ####[facility] [address] [place], [address] Emergency Department Summary on 01-06-2024 Emergency Department Summary [facility] Medical Records Department [address] [place] [address] Emergency Department Summary 01/06/24 MR#: [id number] Acct: [id number] Name: PAT KNIGHT Rep #: [id number] : 1980 43 From: Arturo Craig DO PCP: Dr. Maile Norman MD Status:REG ER Location: ED HPI HPI - GI History of Present Illness Chief Complaint: Abd Pain Narrative Narrative: 43-year-old male presenting with nausea, vomiting, diarrhea x 2 days. She states that both of her kids had some yellow diarrhea over the last few days before the and she started having it later. Her kids both improved. Patient started having abdominal pain today in the left lower quadrant. This made her concerned. She presents to the ER for abdominal pain as well. Patient has not any black or bloody stools. She does not have a fever. Patient denies any urinary complaints. She states she has not been able to hold down any food or her pain medicine that she takes for her right shoulder. Patient states that she did go to tubing at [facility] last week but does not think she swallowed any water. She has not had any exotic food or travel. No recent antibiotic use. [facility] Medical History Right rotator cuff tear Wears partial dentures Hepatitis Smoker History of echocardiogram History of stress test Cardiology follow-up encounter History of CHF (congestive heart failure) Esophageal tear Anxiety Home Medications ???Medication ???Instructions ???Recorded ???Last Taken ???Type trazodone 100 mg tablet 100 mg PO QHS 01/03/17 06/06/22 History oxycodone-acetaminoph en 5 mg-325 1 tab PO Q6H PRN PRN Pain 3 days 09/04/22 Unknown Rx mg tablet #12 TABLETS inhalational spacing device 10/09/23 Unknown History (BreatheRite MDI Spacer) meloxicam 15 mg tablet 15 mg PO DAILY 01/01/24 Unknown History albuterol sulfate 90 mcg/actuation 2 puff inhalation Q4H PRN PRN 01/06/24 Unknown History aerosol inhaler wheezing promethazine 25 mg tablet 25 mg PO TID PRN nausea and 01/07/24 Unknown Rx vomiting #14 tabs Allergy/AdvReac Type Severity Reaction Status Date / Time escitalopram (From Lexapro) Allergy Other Verified 01/06/24 21:59 lamotrigine (From Lamictal) Allergy Hives Verified 01/06/24 21:59 nitrofurantoin (From Allergy Unknown Verified 01/06/24 21:59 Macrobid) nitrofurantoin Allergy Unknown Verified 01/06/24 21:59 macrocrystalline (From Macrobid) codeine AdvReac Nausea Verified 01/06/24 21:59 Surgical History Hx of surgical procedure Hx of removal of ovary History of tonsillectomy and adenoidectomy Social History household members: family housing: house Smoking Status: Current every day smoker tobacco type: cigarettes ROS ROS ED Constitutional Constitutional ED: Denies chills, fever(s) or sweats Eyes Eyes: Denies blurry vision or change in vision ENT ENT ED: Denies ear pain or sore throat Cardiovascular Cardiovascular: Denies chest pain, palpitations or racing heartbeat Respiratory/Chest Respiratory/Chest: Denies cough, dyspnea or sputum Gastrointestinal Gastrointestinal: Reports abdominal pain, diarrhea, nausea and vomiting; Denies constipation Genitourinary Genitourinary ED: Denies dysuria, hematuria or urinary frequency Musculoskeletal Musculoskeletal: Denies arthralgias, myalgias or neck pain Integumentary Denies abscess, Abrasions or rash Neurologic Neurologic: Denies headache(s), paresthesias or weakness Psychiatric Psychiatric: Denies anxiety, depression, suicidal ideation or suicidal thoughts Endocrine Endocrinology: Denies polydipsia or polyuria EXAM Physical Exam Const Vital Signs: 01/06/24 21:57 01/06/24 23:09 01/06/24 23:56 Temperature 97.8 F 98.1 F 98.1 F Temperature Source Oral Oral Oral Pulse Rate 98 88 88 Respiratory Rate 16 16 16 Blood Pressure 101/85 H 100/65 107/71 Blood Pressure Mean 90 76 83 Pulse Ox 100 98 97 Oxygen Delivery Method Room Air Room Air Positive well nourished General Appearance ED: NAD; Negative for pallor HEENT Reports moist mucous membranes normocephalic Eyes PERRL and EOMs intact bilaterally Resp normal respiratory effort Cardio regular rate and regular rhythm GI Palpation: tender LLQ Neuro CN's II-XII intact bilaterally and moves all extremities Sensorium / Orientation: alert Psych mental status grossly normal Skin General Skin Exam: Negative for jaundice or pallor MDM MDM MDM Narrative Medical decision making narrative: 43-year-old female with left-sided abdominal pain, nausea, vomiting, diarrhea. Patient presenting with right flank pain. Different (more content not included)... Normal [facility] Lipaseon 01-06-2024 Lipase [Catalytic activity/Vol] 37 U/L Normal 13-75 [facility] Comment on above: Result Comment: Padma gee note: LIPASE revised reference range effective 22. New Lipase methodology. Expected to produce lower values than the previous assay method. NEW Reference Range: 13 - 75 U/L Performed By: #### L 700.6800, L100.0100, L501.2450, L500.4050 ####[facility] [address] [place], [address] ,Serum,hCG Quali.on 01-06-2024 HCG, SERUM QUAL Normal [facility] Comment on above: Result Comment: Canc elled via OM: Ordered/Entered in error Performed By: #### L 700.6800, L100.0100, L501.2450, L500.4050 ####[facility] [address] [place], [address] INTERNAL QC OK? Normal [facility] Comment on above: Result Comment: Canc elled via OM: Ordered/Entered in error Performed By: #### L 700.6800, L100.0100, L501.2450, L500.4050 ####[facility] [address] [place], [address] RECORD KIT LOT# [facility] Comment on above: Result Comment: Canc elled via OM: Ordered/Entered in error Performed By: #### L 700.6800, L100.0100, L501.2450, L500.4050 ####[facility] [address] [place], [address] Urinalysis, Completeon 01-05 BACTERIA 1+ /hpf Normal None Seen [facility] Comment on above: Order Comment: CANDIDO CTOR TO SPECIFY Performed By: #### L 400.0001 ####[facility] [address] [place], [address] EPI,SQUAMOUS 5-10 SEEN Normal 5-10 [facility] Comment on above: Order Comment: CANDIDO CTOR TO SPECIFY Performed By: #### L 400.0001 ####[facility] [address] [place], [address] WBC 0-5 SEEN Normal 0-5 [facility] Comment on above: Order Comment: CANDIDO CTOR TO SPECIFY Performed By: #### L 400.0001 ####[facility] [address] [place], [address] Mucus Ql (Urine sed) 0 SEEN Normal [facility] Comment on above: Order Comment: CANDIDO CTOR TO SPECIFY Performed By: #### L 400.0001 ####[facility] [address] [place], [address] RBC 0 SEEN Normal 0-5 [facility] Comment on above: Order Comment: CANDIDO CTOR TO SPECIFY Performed By: #### L 400.0001 ####[facility] [address] [place], [address] CNPNon 01-02-2024 CNPN Normal [facility] Emergency Department Summary on 01-01-2024 Emergency Department Summary [facility] Medical Records Department [address] [place] [address] Emergency Department Summary 01/01/24 MR#: [id number] Acct: [id number] Name: PAT KNIGHT Rep #: [id number] : 1980 43 From: Pablo Jarquin MD PCP: Dr. Maile Norman MD Status:REG ER Location: ED HPI History of Present Illness HPI Narrative: 43-year-old female qfsks-truq-vhchfryp with right rotator cuff surgery 3 months ago with acute on chronic shoulder pain. Still taking mobic and percocet. Denies any injury or fever. Chief Complaint: Upper Extremity Injury Informant: patient Occured/Mechanism Mechanism/Context: No injury and No blunt trauma Onset/Context/Timing Onset: Month(s) Context: Gradual Onset Timing: Continuous Current Severity: Moderate Maximum Severity: Moderate Associated Symptoms Associated Symptoms: Negative for Parasthesia, Weakness or Loss of Funtion Narrative Narrative: s/p right rotator cuff surgery with pain for 3 months. Prior similar symptoms: Yes Recent Illness/Hospitalizati on: No PFSH PFSH Medical History Right rotator cuff tear Wears partial dentures Hepatitis Smoker History of echocardiogram History of stress test Cardiology follow-up encounter History of CHF (congestive heart failure) Esophageal tear Anxiety Home Medications ???Medication ???Instructions ???Recorded ???Last Taken ???Type trazodone 100 mg tablet 100 mg PO QHS 01/03/17 06/06/22 History oxycodone-acetaminoph en 5 mg-325 1 tab PO Q6H PRN PRN Pain 3 days 09/04/22 Unknown Rx mg tablet #12 TABLETS inhalational spacing device 10/09/23 Unknown History (BreatheRite MDI Spacer) meloxicam 15 mg tablet 15 mg PO DAILY 01/01/24 Unknown History Allergy/AdvReac Type Severity Reaction Status Date / Time escitalopram (From Lexapro) Allergy Other Verified 01/01/24 20:31 lamotrigine (From Lamictal) Allergy Hives Verified 01/01/24 20:31 nitrofurantoin (From Allergy Unknown Verified 01/01/24 20:31 Macrobid) nitrofurantoin Allergy Unknown Verified 01/01/24 20:31 macrocrystalline (From Macrobid) codeine AdvReac Nausea Verified 01/01/24 20:31 Surgical History Hx of surgical procedure Hx of removal of ovary History of tonsillectomy and adenoidectomy Social History household members: family housing: house Smoking Status: Current every day smoker tobacco type: cigarettes ROS ROS ED ROS Narrative Denies recent illness or fever. Review of Systems ROS Unobtainable: Denies due to encephalopathy Constitutional Constitutional ED: Denies chills or fever(s) Eyes Eyes: Denies blurry vision ENT ENT ED: Denies ear pain Cardiovascular Cardiovascular: Denies chest pain Respiratory/Chest Respiratory/Chest: Denies cough or dyspnea Gastrointestinal Gastrointestinal: Denies abdominal pain Genitourinary Genitourinary ED: Denies dysuria or hematuria Musculoskeletal Musculoskeletal: Denies back pain or myalgias Integumentary Denies abscess or Abrasions Neurologic Neurologic: Denies headache(s) Psychiatric Psychiatric: Denies anxiety or depression Endocrine Endocrinology: Denies cold intolerance Hematologic/Lymphatic Hematologic/Lymphatic : Denies easy bleeding, easy bruising or lymphadenopathy Allergic/Immunologic Allergic/Immunologic ED: Denies mouth swelling, tongue swelling or urticaria EXAM Physical Exam Narrative Exam Narrative: 43-year-old female no acute distress. Vital signs stable afebrile. HEENT exam unremarkable. Neck nontender. Lungs clear. Heart regular rhythm no murmur. Rate about 80. Chest wall and ribs nontender. Abdomen soft nontender. Left upper and both lower extremities are unremarkable. Right shoulder has mild tenderness. There is no swelling. There is no redness or warmth. There is no deformity. There is no bony abnormality. Well-healed surgical incisions. No axillary lymphadenopathy. She can flex and extend her elbow. 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 Normal radial pulse. Normal touch sensation. She has limited range of motion to the shoulder due to discomfort. There is no signs of septic joint. Is not red or warm. Neurologically she is awake and alert. Const Vital Signs: 01/01/24 20:31 Temperature 97.3 F L Temperature Source Temporal Pulse Rate 85 Respiratory Rate 16 Blood Pressure 128/82 H Blood Pressure Mean 97 Pulse Ox 98 Oxygen Delivery Method Room Air Positive well nourished and well developed; Negative for obese, cachectic, contractures or unkempt General Appearance ED: well developed and NAD; Negative for unkempt, cachectic, contractures, cyanotic or diaphoretic Nutritional Appearance: Negative for cachect (more content not included)... Normal [facility] CNPNon 12-27-2023 CNPN Normal [facility] CNOVon 12-20-2023 CNOV Normal [facility] CNPNon 12-07-2023 CNPN Normal [facility] CNOVon 10-11-2023 CNOV Office Visit ([id number] ) PAT KNIGHT ([id number]) 1980 F Date Time Provider Department 10/11/23 10:30 AM L[facility]IS VALENCIA AGHWW1 During your visit today, we recorded the following information about you: Respiration Weight Height 20/minute 55.8 kg 1.651 m Louis Valencia MD 10/12/2023 10:42 AM Signed PAIN EVALUATION 10/10/2023 1237 10/11/2023 1015 Pain Level: 7 6 Pain Location: -- Shoulder-Right Description: Aching;Burning;Itchin g;Numbness;Stabbing;T hrobbing Burning;Aching;Sharp Frequency: -- Continuous Intervention/Comfort measure: Medication;Reposition ;Relaxation;Cold;Emot ional Support/Reassurance;P illow support;Positioning;S plinting -- Pat Knight presents today for: Second post-surgery follow up CHANGES SINCE LAST VISIT: Doing Phase 1 physical therapy with expected progress. Pain improving. Resp 20 Ht 165.1 cm (5' 5) Wt 55.8 kg (123 lb) LMP 05/07/2009 BMI 20.47 kg/m? EXAMINATION FINDINGS: Incisions healed Mild discomfort with gentle passive range of motion within a limited range. Active elevation to 90 today. No crepitation or catching with movement. IMAGING: No imaging today MEDICAL DECISION MAKING: Functional Plan: Physical therapy Phase 2 Continue lifting limit 1 pound or less, avoid sudden movements with the shoulder Sling may be discontinued. Tylenol/NSAID use encouraged for control of pain. Return in 6 weeks for repeat examination. Information for medical decision making today comes from review of the following data: History, exam, imaging Louis Valencia MD Shoulder AND Elbow Surgeon Department of Orthopaedic Surgery [facility] Medical Decision Making: Medical Decision Making Level: 1 - N/A Allergies As of Date: 10/11/2023 Noted Allergy Reaction PAMPRIN MULTI-SYMPTOM (ACETAMINOP* 7 2 - Rash 9 - Itching 12 - Shortness of Breath Comments: Severe itching all over body, slight rash, hyper ventilating, lips swelled badly BUSPAR (BUSPIRONE) 11/12/2020 1 - Mental Status Change Comments: Caused suicidal thoughts CODEINE 02/03/2007 4 - Hives 9 - Itching LAMOTRIGINE 01/03/2017 4 - Hives NITROFURANTOIN MACROCRYSTAL 12/24/2014 16 - Unknown PROMETHAZINE-PHENYLEP HRINE 04/27/2010 5 - Intolerance Comments: Make her feel like passing out Date Reviewed: 10/11/2023 Reviewed by: Merline Carson LPN - Fully Assessed Reason for Visit: Post Op [174] Pain [78] Primary Visit Diagnosis:S/P right rotator cuff repair [Z98.890] Prescriptions as of 10/12/2023 - oxyCODONE-acetaminoph en (PERCOCET) 5-325 mg tablet Take 1-2 tablets by mouth every 6 hours as needed for pain for up to 7 days. Do not start before October 11, 2023. - predniSONE (DELTASONE) 10 mg tablet Take 2 tabs po BID for 2 days then 1 tab po BID for 2 days then 1/2 tab po BID for 2 days then 1/2 tab daily for 2 days then stop - docusate sodium (COLACE) 100 mg capsule Take 1 capsule by mouth two times a day. - ondansetron orally disintegrating (ZOFRAN ODT) 4 mg disintegrating tablet Take 1 tablet by mouth every 8 hours as needed for nausea/vomiting. - Ibuprofen 200 mg cap Take by mouth every 6 hours as needed for pain. - phenylephrine HCl/acetaminophn (EXCEDRIN SINUS HEADACHE ORAL) Take by mouth as needed (headache). - albuterol HFA (PROVENTIL HFA, VENTOLIN HFA) 90 mcg/actuation inhaler Inhale 2 Puffs as instructed every 4 hours as needed for wheezing/shortness of breath. - benzonatate (TESSALON PERLES) 100 mg capsule Take 1 capsule by mouth three times a day as needed. - traZODone (DESYREL) 100 mg tablet Take 1 tablet by mouth daily at bedtime. - acetaminophen (TYLENOL) 325 mg tablet Take 650 mg by mouth every 6 hours as needed. Problem List As Of Date 10/11/2023 Noted Resolved Irritable bowel syndrome [K58.9] 10/27/2012 Nonallopathic lesion of lower extremities, not *11/23/2005 10/27/2012 ALLERGIC RHINITIS NOS [J30.9] 04/05/2006 Migraine, unspecified, with intractable migrain* 10/27/2012 Diarrhea [R19.7] Internal derangement of knee [M23.90] 07/28/2009 10/27/2012 Chronic pain [G89.29] 05/29/2010 Depression [F32.A] Anxiety [F41.9] ADD (attention deficit hyperactivity disorder, *09/19/2013 Hypertension [I10] 09/11/2014 Congestive heart failure (HCC) [I50.9] 09/11/2014 Hepatitis C virus infection without hepatic com*06/15/2016 Chronic hepatitis C without hepatic coma (HCC) *06/15/2016 06/15/2016 Insomnia [G47.00] 01/26/2017 Tobacco use disorder [F17.200] 04/30/2023 Pre-op exam [Z01.818] 08/18/2023 Bicipital tendonitis of right shoulder [M75.21] 08/18/2023 H/O chronic hepatitis [Z87.19] 08/18/2023 Marijuana use [F12.90] 08/18/2023 Migraines [G43.909] 08/18/2023 Congestive heart failure (HCC) [I50.9] 08/18/2023 Bicipital tendinitis of right shoulder [M75.21] 09/05/2023 Letter Text Letter T (more content not included)... Normal [facility] LABORATORYOrdered By: SYSTEM SYSTEM on 10-10-2023 Lipase [Catalytic activity/Vol] 36 U/L Normal 16 - 77 U/L AO ADM SS LIPon 10-10-2023 Lipase Level 36 U/L Normal 16-77 [facility] ([place]) Comment on above: Performed By: #### L #### [place] [address] .Auto Diffon 09-26-2023 Basophil, Absolute 0.2 10 3/mcL Normal 0.0-0.2 [facility] ([place]) Comment on above: Performed By: #### A IWONA SANFORD CBC, MDW #### [address] [address] Basophils/100 WBC (Bld) 1.4 % Normal 0.0-2.5 [facility] ([place]) Comment on above: Performed By: #### A IWONA SANFORD CBC, CHANCE #### [address] [address] Eosinophil, Absolute 0.0 10 3/mcL Normal 0.0-0.4 [facility] ([place]) Comment on above: Performed By: #### A IWONA SANFORD CBC, MDW #### [address] [address] Eosinophils/100 WBC (Bld) 0.2 % Normal 0.0-7.0 [facility] ([place]) Comment on above: Performed By: #### A IWONA SANFORD CBC, MDW #### [address] [address] Lymphocyte, Absolute 2.6 10 3/mcL Normal 0.8-3.9 [facility] ([place]) Comment on above: Performed By: #### A IWONA SANFORD CBC, CHANCE #### [address] [address] Lymphocytes/100 WBC (Bld) 20.9 % Normal 10.0-50.0 [facility] ([place]) Comment on above: Performed By: #### A IWONA SANFORD, ANNIE, CHANCE #### [address] [address] Monocyte, Absolute 0.7 10 3/mcL Normal 0.2-1.0 [facility] ([place]) Comment on above: Performed By: #### A IWONA SANFORD, ANNIE, CHANCE #### [address] [address] Monocytes/100 WBC (Bld) 5.3 % Normal 1.7-13.0 [facility] ([place]) Comment on above: Performed By: #### A IWONA SANFORD CBC, MDW #### [address] [address] Neutrophils/100 WBC (Bld) 72.2 % Normal 37.0-80.0 [facility] ([place]) Comment on above: Performed By: #### A IWONA SANFORD CBC, MDW #### [place] [address] .MDWon 09-26-2023 Monocyte Distribution Width 19.23 Normal 0.00-20.00 [facility]) Comment on above: Result Comment: For ED adult patients suspected of sepsis, MDW<=20.0 does not rule out sepsis or risk of sepsis Performed By: #### A IWONA SANFORD CBC, MDW #### [place] [address] .NEUABSon 09-26-2023 Neutrophil, Absolute 9.0 10 3/mcL High 2.9-6.2 [facility] ([place]) Comment on above: Performed By: #### A IWONA SANFORD CBC, MDW #### [place] [address] CBCon 09-26-2023 Erythrocyte distribution width (RBC) [Ratio] 14.3 % Normal 11.5-14.5 [facility] ([place]) Comment on above: Performed By: #### A IWONA SANFORD CBC, MDW #### [address] [address] Hematocrit (Bld) [Volume fraction] 43.0 % Normal 37.0-47.0 [facility] ([place]) Comment on above: Performed By: #### A IWONA SANFORD CBC, MDW #### [address] [address] Hgb 15.1 G/dL Normal 12.0-16.0 [facility] ([place]) Comment on above: Performed By: #### A IWONA SANFORD CBC, MDW #### [address] [address] MCH (RBC) [Entitic mass] 32.6 pg High 27.0-31.2 [facility] ([place]) Comment on above: Performed By: #### A IWONA SANFORD CBC, MDW #### [place] [id number] MCHC 35.2 G/dL Normal 33.0-37.0 [facility] ([place]) Comment on above: Performed By: #### A IWONA SANFORD CBC, MDW #### [place] [address] MCV (RBC) [Entitic vol] 92.6 fL Normal 80.0-94.0 [facility] ([place]) Comment on above: Performed By: #### A IWONA SANFORD CBC, MDW #### [place] [address] Platelet 365 10 3/mcL Normal 130-400 [facility] ([place]) Comment on above: Performed By: #### A IWONA SANFORD CBC, MDW #### [place] [address] Platelet mean volume (Bld) [Entitic vol] 7.6 fL Normal 7.4-10.4 [facility] ([place]) Comment on above: Performed By: #### A IWONA SANFORD CBC, MDW #### [place] [address] RBC 4.64 10 6/mcL Normal 4.20-5.40 [facility] ([place]) Comment on above: Performed By: #### A IWONA SANFORD CBC, MDW #### [place] [id number] WBC 12.4 10 3/mcL High 4.6-10.8 [facility] ([place]) Comment on above: Performed By: #### A IWONA SANFORD CBC, MDW #### [place] [address] LABORATORYOrdered By: SYSTEM SYSTEM on 09-26-2023 Basophil, Absolute 0.2 103/mcL Normal 0.0 - 0.2 10^3/mcL AO Workflow SS Basophils/100 WBC (Bld) 1.4 % Normal 0.0 - 2.5 % AO Workflow SS Eosinophil, Absolute 0.0 103/mcL Normal 0.0 - 0 .4 10^3/mcL AO Workflow SS Eosinophils/100 WBC (Bld) 0.2 % Normal 0.0 - 7.0 % AO Workflow SS Erythrocyte distribution width (RBC) [Ratio] 14.3 % Normal 11.5 - 14.5 % AO Workflow SS Hematocrit (Bld) [Volume fraction] 43.0 % Normal 37.0 - 47.0 % AO Workflow SS Hemoglobin (Bld) [Mass/Vol] 15.1 G/dL Normal 12.0 - 16.0 G/dL AO Workflow SS Lymphocyte, Absolute 2.6 103/mcL Normal 0.8 - 3 .9 10^3/mcL AO Workflow SS Lymphocytes/100 WBC (Bld) 20.9 % Normal 10.0 - 50.0 % AO Workflow SS MCH (RBC) [Entitic mass] 32.6 pg High 27.0 - 31.2 pg AO Workflow SS MCHC 35.2 G/dL Normal 33.0 - 37.0 G/dL AO Workflow SS MCV (RBC) [Entitic vol] 92.6 fL Normal 80.0 - 94.0 fL AO Workflow SS Monocyte distribution width Auto (Bld) [Entitic vol] 19.23 1 Normal 0.00 - 20.00 AO Workflow SS Comment on above: Result Comment: For ED adult patients suspected of sepsis, MDW<=20.0 does not rule out sepsis or risk of sepsis Monocyte, Absolute 0.7 103/mcL Normal 0.2 - 1.0 10^3/mcL AO Workflow SS Monocytes/100 WBC (Bld) 5.3 % Normal 1.7 - 13.0 % AO Workflow SS Neutrophil, Absolute 9.0 103/mcL High 2.9 - 6 .2 10^3/mcL AO Workflow SS Neutrophils/100 WBC (Bld) 72.2 % Normal 37.0 - 80.0 % AO Workflow SS Platelet mean volume (Bld) [Entitic vol] 7.6 fL Normal 7.4 - 10.4 fL AO Workflow SS Platelets (Bld) [#/Vol] 365 103/mcL Normal 130 - 400 10^3/mcL AO Workflow SS RBC (Bld) [#/Vol] 4.64 106/mcL Normal 4.20 - 5.4 0 10^6/mcL AO Workflow SS WBC (Bld) [#/Vol] 12.4 103/mcL High 4.6 - 10.8 10^3/mcL AO Workflow SS XR SHOULDER MINIMUM 2 VIEWS RIGHTon 09-26-2023 XR SHOULDER MINIMUM 2 VIEWS RIGHT ORIGINAL EXAMINATION: TWO XRAY VIEWS OF THE RIGHT SHOULDER 09/26/2023 9:31 pm COMPARISON: None. HISTORY: ORDERING SYSTEM PROVIDED HISTORY: Reason for Exam: pain TECHNIQUE: AP internal rotation, external rotation, transscapular views. FINDINGS: At the level of the proximal right humeral diaphysis, there is a 7 mm metallic foreign body. Correlation with clinical findings may be useful. Joint spaces and articular surfaces are preserved and in gross anatomic alignment. There is no acute cortical discontinuity. IMPRESSION: 1. There is no acute fracture or dislocation. At the level of the proximal right humeral diaphysis, there is a 7 mm metallic foreign body. Correlation with clinical findings may be useful. Interpreted by: Ramakrishna Vasquez Preliminary Report By: Ramakrishna Vasquez Electronically signed By Ramakrishna Vasquez Dictated Date: 09/26/2023 9:37:43 PM Prelim Date: 09/26/2023 9:41:45 PM Sign Date: 09/26/2023 9:41:45 PM Ordering Provider: [facility]) Eric 09-13-2023 [facility] Office Visit (AGHWW1 ) PAT KNIGHT ([id number]) 1980 F Date Time Provider Department 09/13/23 1:45 PM LOUIS VALENCIA AGHWW1 During your visit today, we recorded the following information about you: Respiration Weight Height 18/minute 57.2 kg 1.651 m Louis Vaelncia MD 09/13/2023 1:40 PM Signed PAIN EVALUATION 09/13/2023 1330 Pain Level: 7 Pain Location: Shoulder-Right Description: Aching;Burning;Stabbi ng Frequency: Continuous Pat Knight presents today for: First post-surgery follow up CHANGES SINCE LAST VISIT: Post-surgical recovery uneventful. Pain appropriately controlled with medication. Wearing sling most of the time. No falls or other injuries. Resp 18 Ht 165.1 cm (5' 5) Wt 57.2 kg (126 lb) LMP 05/07/2009 BMI 20.97 kg/m? EXAMINATION FINDINGS: Mild shoulder edema and ecchymosis. Incisions healing without signs of infection. Mild discomfort with gentle passive range of motion within a limited range. Neurovascularly intact in the shoulder, elbow, wrist, and hand. IMAGING: No imaging today MEDICAL DECISION MAKING: Functional Plan: Physical therapy Phase 1 Lifting limit 1 pound or less, avoid sudden movements with the shoulder Sling use encouraged for comfort and to protect the shoulder when out of the house Wean use of pain medication. Ice the shoulder often. Tylenol/NSAID use encouraged. Return in 4 weeks for repeat examination. Information for medical decision making today comes from review of the following data: History, exam, imaging Louis Valencia MD Shoulder AND Elbow Surgeon Department of Orthopaedic Surgery [facility] Medical Decision Making: Medical Decision Making Level: 1 - N/A Allergies As of Date: 09/13/2023 Noted Allergy Reaction PAMPRIN MULTI-SYMPTOM (ACETAMINOP* 7 2 - Rash 9 - Itching 12 - Shortness of Breath Comments: Severe itching all over body, slight rash, hyper ventilating, lips swelled badly BUSPAR (BUSPIRONE) 11/12/2020 1 - Mental Status Change Comments: Caused suicidal thoughts CODEINE 02/03/2007 4 - Hives 9 - Itching LAMOTRIGINE 01/03/2017 4 - Hives NITROFURANTOIN MACROCRYSTAL 12/24/2014 16 - Unknown PROMETHAZINE-PHENYLEP HRINE 04/27/2010 5 - Intolerance Comments: Make her feel like passing out Date Reviewed: 09/13/2023 Reviewed by: Gilkerson, Merline, RAG WILLOW OPERATOR - Fully Assessed Reason for Visit: Post Op [174] Pain [78] Primary Visit Diagnosis:S/P right rotator cuff repair [Z98.890] Prescriptions as of 09/13/2023 - oxyCODONE-acetaminoph en (PERCOCET) 5-325 mg tablet Take 1-2 tablets by mouth every 6 hours as needed for pain for up to 7 days. - docusate sodium (COLACE) 100 mg capsule Take 1 capsule by mouth two times a day. - ondansetron orally disintegrating (ZOFRAN ODT) 4 mg disintegrating tablet Take 1 tablet by mouth every 8 hours as needed for nausea/vomiting. - Ibuprofen 200 mg cap Take by mouth every 6 hours as needed for pain. - phenylephrine HCl/acetaminophn (EXCEDRIN SINUS HEADACHE ORAL) Take by mouth as needed (headache). - albuterol HFA (PROVENTIL HFA, VENTOLIN HFA) 90 mcg/actuation inhaler Inhale 2 Puffs as instructed every 4 hours as needed for wheezing/shortness of breath. - benzonatate (TESSALON PERLES) 100 mg capsule Take 1 capsule by mouth three times a day as needed. - traZODone (DESYREL) 100 mg tablet Take 1 tablet by mouth daily at bedtime. - acetaminophen (TYLENOL) 325 mg tablet Take 650 mg by mouth every 6 hours as needed. Problem List As Of Date 09/13/2023 Noted Resolved Irritable bowel syndrome [K58.9] 10/27/2012 Nonallopathic lesion of lower extremities, not *11/23/2005 10/27/2012 ALLERGIC RHINITIS NOS [J30.9] 04/05/2006 Migraine, unspecified, with intractable migrain* 10/27/2012 Diarrhea [R19.7] Internal derangement of knee [M23.90] 07/28/2009 10/27/2012 Chronic pain [G89.29] 05/29/2010 Depression [F32.A] Anxiety [F41.9] ADD (attention deficit hyperactivity disorder, *09/19/2013 Hypertension [I10] 09/11/2014 Congestive heart failure (HCC) [I50.9] 09/11/2014 Hepatitis C virus infection without hepatic com*06/15/2016 Chronic hepatitis C without hepatic coma (HCC) *06/15/2016 06/15/2016 Insomnia [G47.00] 01/26/2017 Tobacco use disorder [F17.200] 04/30/2023 Pre-op exam [Z01.818] 08/18/2023 Bicipital tendonitis of right shoulder [M75.21] 08/18/2023 H/O chronic hepatitis [Z87.19] 08/18/2023 Marijuana use [F12.90] 08/18/2023 Migraines [G43.909] 08/18/2023 Congestive heart failure (HCC) [I50.9] 08/18/2023 Bicipital tendinitis of right shoulder [M75.21] 09/05/2023 Letter Text Encounter Status:Closed by LOUIS VALENCIA on 09/13/23 [facility] ANES POSTPROC EVALon 024 ANES POSTPROC EVAL HNO ID: [id number] Author: MADAI JORGE MD Service: Anesthesiology Author Type: Physician Type: Anesthesia Postprocedure Evaluation Filed: 08/29/2023 16:02 Note Text: POST ANESTHESIA EVALUATION NOTE : 1980 Procedure Summary Date: 08/29/23 Room / Location: [facility] Anesthesia Start: 1303 Anesthesia Stop: 1416 Procedure: ARTHROSCOPY SHOULDER BICEPS TENODESIS (Right: Shoulder) Diagnosis: Bicipital tendinitis of right shoulder (Bicipital tendinitis of right shoulder [M75.21]) Surgeons: Louis Valencia MD Responsible Provider: Madai Jorge MD Anesthesia Type: general ASA Status: 2 Anesthesia Type: general Airway Type: ETT Last Vitals Vitals Value Taken Time BP 142/91 08/29/23 1454 Temp 36.5 ?C (97.7 ?F) 08/29/23 1415 HR SpO2 65 08/29/23 1454 Resp 22 08/29/23 1455 SpO2 96 % 08/29/23 1454 Vitals shown include unfiled device data. Post Anesthesia Patient Status Patient Evaluation: PACU. PACU/ICU Patient Condition: stable. Anticipated Disposition: phase 2 then home. Neurological Status: aware and responsive. Pulmonary Status: breathing comfortably on room air Airway Control: returned to baseline unsupported. Cardiovascular Status: stable. Pain Management: clinically adequate - multimodal analgesia pain management approach Postoperative Hydration: acceptable. Intraoperative Events: no significant anesthesia events Post Operative Nausea/Vomiting Status: no significant post operative nausea or vomiting Recommendation: continue current plan of care. Other Remarks: Interscalene nerve block. Anesthesia Observations No Documentation SIGNATURE: Madai Jorge MD PATIENT NAME: Pat Knight DATE: August 29, 2023 TIME: 4:02 PM CSN: [id number] Normal [facility] ANES PRE-OPon 08-29-2023 ANES PRE-OP HNO ID: [id number] Author: OTF MCCLENDON MD Service: Anesthesiology Author Type: Physician Type: Anesthesia Preprocedure Evaluation Filed: 08/29/2023 12:02 Note Text: ANESTHESIOLOGY DAY OF SURGERY NOTE : 1980 Procedure Information Date/Time: 08/29/23 1205 Procedure: ARTHROSCOPY SHOULDER BICEPS TENODESIS (Right: Shoulder) - REG - INTERSCALENE BLOCK Location: [place] [address] / [facility] Surgeons: Louis Valencia MD Estimated body mass index is 20.3 kg/m? as calculated from the following: Height as of this encounter: 165.1 cm (5' 5). Weight as of this encounter: 55.3 kg (122 lb). Most recent hematocrit and potassium results: Hematocrit 41.8 03/30/2023 Potassium 3.5 05/17/2022 Relevant Problems CARDIO (+) Congestive heart failure (HCC) (+) Migraines -RENAL (+) Hepatitis C virus infection without hepatic coma NEURO-PSYCH (+) H/O chronic hepatitis (+) Migraines Psychiatry (+) ADD (attention deficit hyperactivity disorder, inattentive type) heart failure during a but pt says it resolved and she has not had to follow up with cardiology in many years I - PHYSICAL EVALUATION AIRWAY Patient intubated: No. Tracheostomy tube not present Mallampati: II. TM distance: >3 FB. Neck ROM: full ROM without neurological symptoms. Mouth opening: adequate. Short neck: no. Thick neck: no Pradhan present: no DENTAL Dental findings: teeth intact. Dentures, upper: partial. II - ANESTHESIA PLAN ASA Score: 2 Anesthetic Plan: general Airway type: ETT The patient is a current smoker. NPO Status: adequate Beta Mariya Monitoring Plan Monitoring plan: standard ASA. Post Procedure Analgesic Plan Postoperative analgesic plan: multimodal analgesia and peripheral nerve block (interscalene). Informed Consent Anesthetic risks, benefits, alternatives, personnel and consent discussed: yes. Patient / Responsible Republican agrees to proceed: yes Patient / Surrogate agrees to blood products: blood products not planned Potential Anesthesia issues that may suggest increased risk of complications or contraindication to planned procedure: none. Vitals Value Taken Time BP 110/74 08/29/23 1017 Pulse 91 08/29/23 1017 Resp 20 08/29/23 1017 Temp 36.3 ?C (97.3 ?F) 08/29/23 1017 SpO2 100 % 08/29/23 1017 Facility-Administered Medications as of 08/29/2023 Medication Dose Route Frequency - lidocaine 10 mg/mL (1 %) 1-2 mg injection (XYLOCAINE) 0.1-0.2 mL INTRADERMAL PRN - lactated ringers iv infusion 5-30 mL/hr INTRAVENOUS CONTINUOUS Outpatient Medications as of 08/29/2023 Medication Sig - oxyCODONE-acetaminoph en (PERCOCET) 5-325 mg tablet Take 1 tablet by mouth every 8 hours as needed for pain for up to 14 days. Do not start before August 15, 2023. - traZODone (DESYREL) 100 mg tablet Take 1 tablet by mouth daily at bedtime. - benzonatate (TESSALON PERLES) 100 mg capsule Take 1 capsule by mouth three times a day as needed. - acetaminophen (TYLENOL) 325 mg tablet Take 650 mg by mouth every 6 hours as needed. I have interviewed and examined the patient. I have reviewed the medical record and/or the pre-anesthesia evaluation, pertinent labs, and test results. This contains updated information obtained within 48 hours of Surgery/Procedure. SIGNATURE: Otf Mcclendon MD PATIENT NAME: Pat Knight DATE: August 29, 2023 TIME: 11:31 AM CSN: [id number] Normal [facility] HCG Preg Ur Qlon 08-29-2023 HCG ( test) Ql (U) Negative Normal Negative [facility] Comment on above: Order Comment: Speci men Type: URINE SPECIMENOrdering Facility: [facility] Address: [address] [place] [address] Result Comment: This test is intended to aid in the early detection of . Very dilute urine samples, as indicated by a low specific gravity, may not contain customer counter representative levels of hCG. This test detects intact hCG only. This test does not reliably detect hCG degradation products, including free-beta subunit and beta-core fragment. Therefore, this test may show reduced reactivity in urine after 8 weeks gestation. A number of conditions other than , including trophoblastic disease and certain non-trophoblastic neoplasms cause elevated levels of hCG. As with any assay employing mouse antibodies, the possibility exists for interference by human anti-mouse antibodies (HAMA) in the specimen. The test provides a presumptive diagnosis for . Performed By: #### 2 106-3 ####[facility] LABCLIA [id number] [place] [address] [facility] HISTORY PHYSICALon HISTORY PHYSICAL HNO ID: [id number] Author: LOUIS VALENCIA MD Service: Orthopaedic Surgery Author Type: Physician Type: H&P Filed: 08/29/2023 11:52 Note Text: UPDATED HISTORY AND PHYSICAL EXAMINATION SERVICE DATE: 08/29/2023 SERVICE TIME: 11:52 AM PHYSICAL EXAM MUST BE COMPLETED ON ADMISSION The History and Physical (completed in the past 30 days) has been reviewed and the patient has been examined. The contents accurately reflect the patient's condition with the following additions or revisions since the HANDP was completed. Examination indicates no changes. This HANDP can be found in the Electronic Medical Record dated 08/18/23. SIGNATURE: Louis Valencia MD PATIENT NAME: Pat Knight DATE: August 29, 2023 TIME: 11:52 AM Normal [facility] OPERATIVE NOon 08-29-2023 OPERATIVE NO HNO ID: [id number] Author: LOUIS VALENCIA MD Service: Orthopaedic Surgery Author Type: Physician Type: Operative Report Filed: 09/07/2023 11:31 Note Text: OPERATIVE/PROCEDURE REPORT LOG ID: [id number] SURGERY/PROCEDURE DATE: 08/29/2023 INCISION/PROCEDURE START TIME: 1:29 PM INCISION CLOSE/PROCEDURE END TIME: 2:03 PM SURGEON(S)/PROCEDURAL IST(S) AND CASINO DEALER(S): Surgeon(s) and Role: * Louis Valencia MD - Primary Physician Rn Charge: Laura Tobar PA-C SURGERY/PROCEDURE(S): Right shoulder arthroscopic rotator cuff repair of supraspinatus (1 cm) and subscapularis (5 mm), open biceps tenodesis ANESTHESIA: General SURGERY/PROCEDURE DETAILS: Pat Knight is a 43 year old woman who presented with right shoulder pain that had been limiting the ability to perform daily activities and had not responded to conservative management. Exam and MRI findings were concerning for bicipital tendinitis. I offered arthroscopic surgery for the purposes of pain relief and improved function of the shoulder. Medically relevant risks, benefits, and alternatives to the procedure were discussed in detail in the office prior to surgery. No guarantees as to the outcome of surgery were given or implied. The patient expressed agreement and understanding with the plan prior to scheduling surgery. The patient was greeted in the preoperative holding area and identified by name and date of . A preoperative nerve block was administered. The patient was taken to the operating room and transferred to the operating table in the supine position. General anesthesia was induced with endotracheal intubation. The patient was placed in the beach chair position with bilateral lower extremities padded and bilateral lower extremity sequential compression devices were applied. Intravenous antibiotic was given. The right shoulder and upper extremity were prepped and draped in a sterile fashion. A time out procedure was performed and this confirmed the correct patient, site, and procedure to be performed. I began by performing a diagnostic arthroscopy of the shoulder using a standard posterior portal. Examination of the humeral and glenoid cartilage revealed Outerbridge grade 0 humerus and grade 0 glenoid. The glenoid labrum was torn superiorly. Long head of biceps tendon was visualized and there was no tearing of the tendon. I made an anterior portal under direct visualization using outside in technique after first localizing with a spinal needle. A probe was inserted into the joint and this was used to test the integrity of intra-articular structures. The long head of biceps tendon anchor was found to be unstable. Medial support of the biceps tendon was torn. The upper border of subscapularis was examined after resecting a small amount of synovial tissue from within the rotator interval. This was found to be torn. The undersurface of the supraspinatus and infraspinatus tendons was examined and high-grade tearing was visible. The long head of biceps tendon was then released from its origin on the superior glenoid and the tendon stump was resected with a shaver. Labral debridement was performed using the shaver. Subscapularis tendon was debrided with the shaver, and a bone bed for repair was prepared using the bur. I grasped the tendon edge with a Fiberwire suture passed with a Scorpion suture passing device using the anterior portal cannula. I then secured this to the lesser tuberosity using a single swivel lock anchor. Knotless fixation of the tendon to the tuberosity was performed and solid fixation was confirmed under direct visualization. Final pictures were taken and the arthroscope was removed from the joint. Next I entered the subacromial space using the posterior portal. Bursal tissue overlying the rotator cuff was cleared with a shaver after making a lateral portal under direct visualization after localizing with a spinal needle. Once the bursa had been resected with shaver I inserted the arthroscope into the lateral portal for full visualization of the subacromial space and rotator cuff. This revealed tearing of the supraspinatus insertion centrally. Arthroscopic rotator cuff repair was then performed using a single-row technique. Remaining bursa and scar tissue was removed from the greater tuberosity to fully visualize the tear. I used a shaver to debride the end of the tendon to healthy tissue. I used a bur to resect a small amount of bone to create a bleeding surface for repair. Tendon mobility was tested using a grasper and found to be excellent, and tissue quality was also suitable for single-row repair. I grasped the tendon using a Scorpion suture passer and passed 2 limbs of suture from inferior to superior, medial to the tendon edge. Single row repair was completed using 1 anchor. Solid fixation was confirmed under direct visualization and by use of a probe. There was no (more content not included)... Normal [facility] CNPShelly 08-26-2023 CHRISTINA Telephone (AGPOB1) PAT KNIGHT ([id number]) 1980 F Date Time Provider Department 08/26/23 LOUIS VALENCIA AGPOB1 During your visit today, we recorded the following information about you: Doyle Webster DanielAlis 08/26/2023 4:13 PM Signed I just left patient detailed message that she needs to arrive at our outpatient surgery center on Tuesdayaugust 28 by 10:00 am. I left address and suite number. I also reminded her not to eat or drink after midnight Tuesday night or npo for 8 hrs. I left my direct desk number for her to contact if she needs anything after surgery as well. Allergies As of Date: 08/26/2023 Noted Allergy Reaction PAMPRIN MULTI-SYMPTOM (ACETAMINOP* 7 2 - Rash 9 - Itching 12 - Shortness of Breath Comments: Severe itching all over body, slight rash, hyper ventilating, lips swelled badly BUSPAR (BUSPIRONE) 11/12/2020 1 - Mental Status Change Comments: Caused suicidal thoughts CODEINE 02/03/2007 4 - Hives 9 - Itching LAMOTRIGINE 01/03/2017 4 - Hives NITROFURANTOIN MACROCRYSTAL 12/24/2014 16 - Unknown PROMETHAZINE-PHENYLEP HRINE 04/27/2010 5 - Intolerance Comments: Make her feel like passing out Date Reviewed: 08/18/2023 Reviewed by: Radha Neri APRN.DISABILITY MANAGER - Fully Assessed Reason for Visit: Preparations For Surgery [898] Cmt: Reminder call Prescriptions as of 08/26/2023 - Ibuprofen 200 mg cap Take by mouth every 6 hours as needed for pain. - phenylephrine HCl/acetaminophn (EXCEDRIN SINUS HEADACHE ORAL) Take by mouth as needed (headache). - albuterol HFA (PROVENTIL HFA, VENTOLIN HFA) 90 mcg/actuation inhaler Inhale 2 Puffs as instructed every 4 hours as needed for wheezing/shortness of breath. - oxyCODONE-acetaminoph en (PERCOCET) 5-325 mg tablet Take 1 tablet by mouth every 8 hours as needed for pain for up to 14 days. Do not start before August 15, 2023. - benzonatate (TESSALON PERLES) 100 mg capsule Take 1 capsule by mouth three times a day as needed. - traZODone (DESYREL) 100 mg tablet Take 1 tablet by mouth daily at bedtime. - acetaminophen (TYLENOL) 325 mg tablet Take 650 mg by mouth every 6 hours as needed. Problem List As Of Date 08/26/2023 Noted Resolved Irritable bowel syndrome [K58.9] 10/27/2012 Nonallopathic lesion of lower extremities, not *11/23/2005 10/27/2012 ALLERGIC RHINITIS NOS [J30.9] 04/05/2006 Migraine, unspecified, with intractable migrain* 10/27/2012 Diarrhea [R19.7] Internal derangement of knee [M23.90] 07/28/2009 10/27/2012 Chronic pain [G89.29] 05/29/2010 Depression [F32.A] Anxiety [F41.9] ADD (attention deficit hyperactivity disorder, *09/19/2013 Hypertension [I10] 09/11/2014 Congestive heart failure (HCC) [I50.9] 09/11/2014 Hepatitis C virus infection without hepatic com*06/15/2016 Chronic hepatitis C without hepatic coma (HCC) *06/15/2016 06/15/2016 Insomnia [G47.00] 01/26/2017 Tobacco use disorder [F17.200] 04/30/2023 Pre-op exam [Z01.818] 08/18/2023 Bicipital tendonitis of right shoulder [M75.21] 08/18/2023 H/O chronic hepatitis [Z87.19] 08/18/2023 Marijuana use [F12.90] 08/18/2023 Migraines [G43.909] 08/18/2023 Congestive heart failure (HCC) [I50.9] 08/18/2023 Encounter Status:Closed by [facility] ALIS ESPINOSA on 08/26/23 [facility] HISTORY PHYSICALon HISTORY PHYSICAL HNO ID: [id number] Author: RADHA NERI APRN.LUIS DANIEL Service: ? Author Type: Nurse Practitioner Type: H&P Filed: 08/18/2023 12:15 Note Text: HISTORY AND PHYSICAL EXAMINATION SERVICE DATE: 08/17/2023 SERVICE TIME: 12:08 PM PRIMARY CARE PHYSICIAN: Maile Norman MD Implantable Devices: None Patient denies blood thinners Assessment/Plan Bicipital tendinitis of right shoulder [M75.21] PLAN Planned Procedure: Procedure(s) with comments: ARTHROSCOPY SHOULDER BICEPS TENODESIS (Right) - REG - INTERSCALENE BLOCK The Following Tests/Procedures Have Been Initiated: No labs ordered per surgeon in [facility] I spent a total of 40 minutes on the date of the service which included preparing to see the patient, [id number] patient care, completing clinical documentation, obtaining and/or reviewing separately obtained history, performing a medically appropriate examination, counseling and educating the patient/family/caregi chelsea, and communicating with other HCPs (not separately reported). Assessment Patient has the following medical conditions which may affect samir-operative course: Pre-op exam see note for medical conditions which may affect samir-operative course that were addressed at today's visit. Bicipital tendonitis of right shoulder Surgery scheduled 08/29/2023 H/O chronic hepatitis Harvoni in 07/2018 Unsure if finished. 08/24/2018-HCV RNA not detected Tobacco use disorder 30 pack years-smoking 1 PPD Instructed to avoid DOS Marijuana use Daily Migraines treated with Excedrin PRN Lemon Activity Status Index: METS: Climb a flight of stairs or walk up a hill (5.50 METs) DASI Score: 5.5 Patient denies any chest pain or undue shortness of breath with the above physical activity. ARISCAT Score: Age: <=50 Preoperative SpO2: >=96% Respiratory infection in the last month: No Preoperative anemia: No Surgical incision: peripheral Duration of surgery: 2-3 hrs Emergency procedure: No ARISCAT Score: 16 ANESTHESIA FINDINGS: Intubation History: No history of difficult intubation Significant Anesthesia Considerations: none Airway History: No history of difficult airway I - PHYSICAL EVALUATION AIRWAY Patient intubated: No. DENTAL Dental findings: teeth intact. Dentures, upper: partial. II - ANESTHESIA PLAN Anesthetic Plan: general Beta Mariya Monitoring Plan Post Procedure Analgesic Plan Prepared for Surgery: CONSULTS: The following consults have been initiated at this time: anesthesia (will review with anesthesia). Planned Anesthetic: general The Following Tests/Procedures Have Been Initiated: Orders Placed This Encounter Ibuprofen 200 mg cap Sig: Take by mouth every 6 hours as needed for pain. phenylephrine HCl/acetaminophn (EXCEDRIN SINUS HEADACHE ORAL) Sig: Take by mouth as needed (headache). REASON FOR VISIT: Pat Knight is a 43 year old female who is scheduled for Procedure(s) with comments: ARTHROSCOPY SHOULDER BICEPS TENODESIS (Right) - REG - INTERSCALENE BLOCK at the request of Dr. Louis Valencia for routine HANDP. My final recommendation will be communicated back to the requesting physician by way of shared medical record or letter. Subjective The patient has the following: ACTIVE PROBLEM LIST Allergic Rhinitis, Cause Unspecified Diarrhea Chronic Pain Depression Anxiety Add (Attention Deficit Hyperactivity Disorder, Inattentive Type) Hepatitis C Virus Infection Without Hepatic Coma Insomnia Tobacco Use Disorder Pre-Op Exam Bicipital Tendonitis of Right Shoulder H/O Chronic Hepatitis Marijuana Use Migraines COVID-19 Immunization Status Postponed - Covid-19 Vaccine (1) Postponed until 01/11/2024 01/10/2023 Postponed until 01/11/2024 by Karen Shoer LPN (Declined at this time) 05/12/2021 Postponed until 05/12/2022 by Maile Norman MD (Declined at this time) CHIEF COMPLAINT: The reason for this visit is to perform a comprehensive review of the patient's past medical history, assess their current health status and obtain any additional testing required based on anesthesia guidelines. We will also identify any potential anesthesia problems or contraindications to the planned procedure. HPI: Patient is a 43 year old female who presents for pre surgical testing. She c/o right shoulder pain since she injury sustained in September 2022. She did PT which did not resolve symptoms. Today she rates the pain 5/10. Describes as an aching stabbing pain. Certain movements worsens the pain and rest and percocet improves the pain. After discussion with the surgeon the patient agrees to surgical intervention. REVIEW OF SYSTEMS: General: Positive for: malaise and fever. Negative for: unintentional weight change. Neurological: Positive for: headaches. Negative for: seizures and strokes. Respiratory: + RSV, Flu and pneumonia Positive for: pneumonia within 6 weeks, tobacco use and URI (more content not included)... Normal [facility] STREP A MOLECULAR (POC)on Procedural Control Valid [facility] Strep A (POCT) Negative Negative [facility] XR Chest PA and Lateralon IMPRESSION: No acute radiographic abnormality. Behaviour Support Teacher: DARSHAN Transcribe Date/Time: Aug 11 2023 8:47A Dictated by : LIZBETH GONZALEZ DO This examination was interpreted and the report reviewed and electronically signed by: LIZBETH GONZALEZ DO on Aug 11 2023 8:50AM [facility] DIVISION OF RADIOLOGY * * *Final Report* * * DATE OF EXAM: Aug 11 2023 8:45AM WOX [id number] - XR CHEST 2V FRONTAL/LAT / PROCEDURE REASON: Acute cough * * * * Physician Interpretation * * * * EXAMINATION: CHEST RADIOGRAPH (2 VIEW FRONTAL & LATERAL) PATIENT/TECHNOLOGIST PROVIDED HISTORY: pt sts in for cough and congestion. had rsv over a week ago. no prv sx to chest smoker CLINICAL HISTORY: 43 years old Female with Acute cough MQ: XC2_6 EXAM DATE/TIME: 08/11/2023 8:45 AM COMPARISON: Chest radiograph 03/30/2023, 03/09/2021 RESULT: Lines, tubes, and devices: None. Lungs and pleura: No consolidation, pleural effusion or pneumothorax. Cardiomediastinal silhouette: Normal cardiomediastinal silhouette. Bones and soft tissues: Unremarkable. DIVISION OF RADIOLOGY Provider, [facility] - 08/11/2023 * * *Final Report* * * DATE OF EXAM: Aug 11 2023 8:45AM WOX [id number] - XR CHEST 2V FRONTAL/LAT / PROCEDURE REASON: Acute cough * * * * Physician Interpretation * * * * EXAMINATION: CHEST RADIOGRAPH (2 VIEW FRONTAL & LATERAL) PATIENT/TECHNOLOGIST PROVIDED HISTORY: pt sts in for cough and congestion. had rsv over a week ago. no prv sx to chest smoker CLINICAL HISTORY: 43 years old Female with Acute cough MQ: XC2_6 EXAM DATE/TIME: 08/11/2023 8:45 AM COMPARISON: Chest radiograph 03/30/2023, 03/09/2021 RESULT: Lines, tubes, and devices: None. Lungs and pleura: No consolidation, pleural effusion or pneumothorax. Cardiomediastinal silhouette: Normal cardiomediastinal silhouette. Bones and soft tissues: Unremarkable. IMPRESSION IMPRESSION: No acute radiographic abnormality. Behaviour Support Teacher: DARSHAN Transcribe Date/Time: Aug 11 2023 8:47A Dictated by : LIZBETH GONZALEZ DO This examination was interpreted and the report reviewed and electronically signed by: LIZBETH GONZALEZ DO on Aug 11 2023 8:50AM EST [facility] Radiology Study observation (narrative) [facility] XR Chest PA and LateralOrder ed By: Ccf Provider on 08-11-2023 [facility] CNOVon 08-09-2023 CNOV Office Visit (AGHWW1 ) PAT KNIGHT ([id number]) 1980 F Date Time Provider Department 08/09/23 1:00 PM LOUIS VALENCIA HWW1 During your visit today, we recorded the following information about you: Respiration Weight Height 16/minute 57.2 kg 1.651 m Louis Valencia MD 08/09/2023 1:18 PM Signed PAIN EVALUATION 08/09/2023 1252 Pain Level: 5 Pain Location: Shoulder-Right Description: Dull;Aching;Sharp Duration Units: Years Frequency: Intermittent Intervention/Comfort measure: Medication;Reposition ;Relaxation Encounter Diagnosis ICD-10-CM 1. Biceps tendinitis of right upper extremity M75.21 Pat Knight presents today for evaluation of her right shoulder. She has been referred by my partner Dr. Rios for treatment of pain following an injury sustained in September 2022 when she reached out with the right arm to catch something heavy at work and had sudden onset of pain in the anterior and lateral shoulder. This has not resolved despite conservative treatment with physical therapy. Pain is described as being dull at rest and sharper with movement. It is felt primarily over the anterior and lateral shoulder. It will sometimes radiate to the elbow. The pain affects lifting, reaching, and rotational activities. The pain is often worse at night. Shoulder Musculoskeletal Exam Inspection Right Ecchymosis: none Peripheral edema: none Atrophy: none Symmetry: symmetric Masses: none Skin tenting: none Prior incision: none Palpation Right Crepitus: mild Increased warmth: none Tenderness: present Anterior shoulder: moderate Posterior shoulder: mild Bicipital groove: moderate Proximal biceps: moderate Range of Motion Right Active ROM: abnormal and pain. Passive ROM: abnormal and pain. Active forward elevation: 140. Passive forward elevation: 150. Shoulder active abduction: 90. Passive abduction: 90. Active external rotation at side: 60. Passive external rotation at side: 60. Active external rotation in abduction: 60. Passive external rotation in abduction: 60. Active internal rotation in abduction: 40. Passive internal rotation in abduction: 40. Internal rotation: T12. Strength Right External rotation: 5/5. Internal rotation: 5/5. Abduction: 5/5. Neurovascular Right Right shoulder nerve sensation is normal. Axillary nerve sensory distribution: normal Scapula Right Position: normal Dyskinesia: none Winging: none Special Tests Right Rotator Cuff Signs Neer's test: positive Mayer test: positive Supraspinatus: negative Belly press test: negative Painful arc test: positive Lift-off sign: negative Drop arm test: negative Biceps/joss Signs Drake's test: positive Clicking/popping: positive Speed's test: positive AC Joint Signs Active horizontal adduction pain: negative Single finger test: negative General Constitutional: appears stated age Labored breathing: no Psychiatric: normal mood and affect and no acute distress Neurological: alert and oriented x3 Skin: intact Lymphadenopathy: none IMAGING: I personally reviewed the MRI of the right shoulder in the office today, and I am in agreement with the radiologist's interpretation with the following modifications: None IMPRESSION: MILD SUBACROMIAL-SUBDELTOI D BURSITIS. INTACT ROTATOR CUFF AND GLENOID LABRUM. PLAN: Pat Knight presents today with persistent pain in the right shoulder following an injury in September 2022 with exam consistent with bicipital tendinitis or instability of the biceps tendon likely due to tearing and incompetence of the medial support structures at the bicipital groove. Based on my evaluation today, I do not feel that nonsurgical interventions including physical therapy, activity modification, and medical management are likely to provide this patient with an acceptable level of improvement in functional use of the arm, nor significant pain relief. After thorough review of history, examination findings, and imaging, we discussed surgical intervention today which would be arthroscopy with biceps tenodesis. I described the procedure in detail as well as the expected healing time of 3-6 months and physical therapy regimen following surgery, likely for much of this time. Informed consent was discussed in detail and signed in the office today. Significant risks of surgery including those of general anesthesia, and those from surgery including infection, nerve injury, bleeding, procedure failure and possible need for repeat procedure were all discussed at the time of consent. No guarantees as to the outcome of surgery were given or implied. Surgery will be scheduled for the next available date. Louis Valencia MD Shoulder AND Elbow Surgeon Department of Orthopaedic Surgery [facility] (more content not included)... Normal [facility] INFLUENZA A&B MOLECULAR (POC )on 08-01-2023 Flu A (POCT) Negative Negative [facility] Flu B (POCT) Negative Negative [facility] Procedural Control Valid [facility] CNOVon 05-12-2023 CNOV Office Visit (SPAGWO ) PAT KNIGHT ([id number]) 1980 F Date Time Provider Department 05/12/23 9:00 AM CHARLES ELLIOTT During your visit today, we recorded the following information about you: Pulse Respiration 68/minute 16/minute Charles Elliott APRN.CNP 05/12/2023 2:29 PM Signed [facility] Today's Date: 05/12/2023 Last Visit: N/A Name: Pat Knight : 1980 Purpose: New Patient Consultation Chief complaint: right shoulder pain Referring Clinician: Anny Pham CNP. Pertinent Past Medical History: right shoulder, depression, anxiety, ADD. Pertinent Past Surgeries: none History of Present Illness (HPI): 05/11/2023 - Initial HPI (Obtained by Charles Elliott CNP). DURATION AND ONSET: The pain complaint has been present for approximately 5 months. The pain had a sudden onset. The mechanism of injury is known and is as follows: unloaded a box off of a dock and the box slid and she ended up catching it with her right shoulder and arm PRIOR TREATMENTS: Medications, Injections: (CSI no relief), Physical Therapy, TENS PAIN DESCRIPTION: Currently the pain is primarily localized in the right shoulder. The pain is experienced as constant. It is described as being Aching, Sharp, Stabbing, Throbbing. There is will radiate into her axillary area and the front of her upper right arm. The pain is exacerbated by moving her shoulder, sleeping on it. . The pain is alleviated by Medications, Ice. The pain interferes with physical activity, work, and all ADL's. RED FLAG SYMPTOMS:reports arm weakness. Pt states she is able do most of her activites but it is painful. Patient states she has been miserable since the accident happened. Patient states that she is still able to do her activities of daily living but it is with increased pain. Patient states that where she works is making provisions to help her to be able to do her job but by the end of her shift she is miserable. Patient has been taking hydrocodone from her primary care, states it is helping some. Patient has done everything to help her pain, including therapy injections use of the TENS unit and medications. Nothing is helped. Patient has had an MRI done and she does have a labral tear. Patient does have a marijuana card currently. Patient states occasionally she will partake in the use of this marijuana. Patient states she was stopped if she be given pain medication did not help with her pain. Patient states the marijuana helps her with anxiety. Current Pain Medications: Neuropathics: none NSAIDS: Muscle Relaxants: Topicals: Other Prescription or OTC Pain Medications: Opioids (when applicable): Date last refilled: Quantity supplied: Quantity remaining: Last taken: Anti-depressants or Mood-Stabilizers: Trazodone Anti-Coagulants: None Current Therapies Attended: Physical Therapy: 12 visits have been attended. With medpro Treatment History: PAIN PROCEDURES: DATE PROCEDURE IMPROVEMENT To date, no interventional pain management procedures performed at this practice. 12/2022 Right shoulder CSI no relief. Past Therapies Attended: above Data Reviewed Today: SOCIAL HISTORY No social history on file. Allergies: ALLERGIES Allergen Reactions Pamprin Multi-Sympt* Rash, Itching, Shortness of Breath Severe itching all over body, slight rash, hyper ventilating, lips swelled badly Buspar [Buspirone] Mental Status Change Caused suicidal thoughts Codeine Hives, Itching Lamotrigine Hives Nitrofurantoin Macr* Unknown Promethazine-Phenyl* Intolerance Make her feel like passing out INTAKE PAIN ASSESSMENT 04/30/2023 05/12/2023 Are you having pain associated with your visit today? No Yes, Provider notified Pain Scales - Verbal (Numeric Rating or Visual Analog Scale) Pain Level - 7 Pain Location - Shoulder-Right Description - Aching;Stabbing;Sharp Duration Amount of Time - - Duration Units - Months Frequency - Continuous Intervention/Comfort measure - Medication;Reposition ;Relaxation;Exercise; Heat;Pillow support;Positioning;T herapeutic techniques-CPRP Comments - - Pain Assessment - - Compliance: PDMP website checked and validated on 05/12/2023 by Charles Elliott APRN.DISABILITY MANAGER All prescriptions have been APPROPRIATELY filled. No suspicious activity was identified. Recent Drug screens: AG SPINE COMBINATION 05/12/2023 Questionnaire GREENLIGHT Completed Date 05/12/2023 Questionnaire Opiod Risk Tool Completed Date 05/12/2023 Comments 4 Greenlight Questionnaire GREENLIGHT Completed Date 05/12/2023 Opioid Risk Tool Opi (more content not included)... Normal [facility] CNPShelly 05-12-2023 CNPN Telephone (SPAGWO) PAT KNIGHT ([id number]) 1980 F Date Time Provider Department 05/12/23 CHARLES ELLIOTT During your visit today, we recorded the following information about you: Kimberly Crowe 05/12/2023 10:14 AM Signed The referral to Orthopaedics for Chronic right shoulder pain, Labral tear of shoulder, degenerative, right has been submitted via the [facility] Internal Referral Request form on the [facility] Appointment Portal. Confirmation # [id number] Kimberly Crowe Allergies As of Date: 05/12/2023 Noted Allergy Reaction PAMPRIN MULTI-SYMPTOM (ACETAMINOP* 7 2 - Rash 9 - Itching 12 - Shortness of Breath Comments: Severe itching all over body, slight rash, hyper ventilating, lips swelled badly BUSPAR (BUSPIRONE) 11/12/2020 1 - Mental Status Change Comments: Caused suicidal thoughts CODEINE 02/03/2007 4 - Hives 9 - Itching LAMOTRIGINE 01/03/2017 4 - Hives NITROFURANTOIN MACROCRYSTAL 12/24/2014 16 - Unknown PROMETHAZINE-PHENYLEP HRINE 04/27/2010 5 - Intolerance Comments: Make her feel like passing out Date Reviewed: 05/12/2023 Reviewed by: Charles Elliott APRN.DISABILITY MANAGER - Fully Assessed Reason for Visit: Referral Information [0021] Prescriptions as of 05/12/2023 - oxyCODONE-acetaminoph en (PERCOCET) 5-325 mg tablet Take by mouth every 8 hours as needed for pain. - cyclobenzaprine HCl (FLEXERIL ORAL) Take by mouth. - acetaminophen (TYLENOL) 325 mg tablet Take 650 mg by mouth every 6 hours as needed. - traZODone (DESYREL) 100 mg tablet Take 1 tablet by mouth daily at bedtime. Problem List As Of Date 05/12/2023 Noted Resolved Irritable bowel syndrome [K58.9] 10/27/2012 Nonallopathic lesion of lower extremities, not *11/23/2005 10/27/2012 ALLERGIC RHINITIS NOS [J30.9] 04/05/2006 Migraine, unspecified, with intractable migrain* 10/27/2012 Diarrhea [R19.7] Internal derangement of knee [M23.90] 07/28/2009 10/27/2012 Chronic pain [G89.29] 05/29/2010 Depression [F32.A] Anxiety [F41.9] ADD (attention deficit hyperactivity disorder, *09/19/2013 Hypertension [I10] 09/11/2014 Congestive heart failure (HCC) [I50.9] 09/11/2014 Hepatitis C virus infection without hepatic com*06/15/2016 Chronic hepatitis C without hepatic coma (HCC) *06/15/2016 06/15/2016 Insomnia [G47.00] 01/26/2017 Tobacco use disorder [F17.200] 04/30/2023 Encounter Status:Closed by KIMBERLY CROWE on 05/12/23 Normal [facility] UA DIP, URINE (POC)on 2022 BILIRUBIN UA (POCT) Negative Negative [facility] CLARITY UA (POCT) Clear [facility] COLOR UA (POCT) Yellow [facility] GLUCOSE UA (POCT) Negative Negative mg/dL [facility] Hemoglobin Ql (U) Negative Negative [facility] KETONE UA (POCT) Negative Negative mg/dL [facility] [facility] LEUKOCYTES UA (POCT) Negative Negative [facility] NITRITE UA (POCT) Negative Negative [facility] PH UA (POCT) 6.0 4.5 - 8.0 [facility] Protein Ql (U) 30 mg/dL Abnormal Negative mg/dL [facility] SPECIFIC GRAVITY UA (POCT) <=1.005 Abnormal 1.005 - 1.030 [facility] UROBILINOGEN UA (POCT) 0.2 E.U./dL Normal E.U./dL [facility] UA DIP, URINE (POC)on 2022 BILIRUBIN UA (POCT) Negative Negative [facility] CLARITY UA (POCT) Clear [facility] COLOR UA (POCT) Yellow [facility] GLUCOSE UA (POCT) Negative Negative mg/dL [facility] Hemoglobin Ql (U) Trace-intact Abnormal Negative [facility] KETONE UA (POCT) Negative Negative mg/dL [facility] LEUKOCYTES UA (POCT) Large Abnormal Negative [facility] NITRITE UA (POCT) Negative Negative [facility] PH UA (POCT) 6.5 4.5 - 8.0 [facility] Protein Ql (U) Negative Negative mg/dL [facility] SPECIFIC GRAVITY UA (POCT) 1.025 1.005 - 1.030 [facility] UROBILINOGEN UA (POCT) 0.2 E.U./dL Normal E.U./dL [facility] XR Chest PA and Lateralon IMPRESSION: No acute radiographic abnormality. Behaviour Support Teacher: DARSHAN Transcribe Date/Time: Mar 30 2023 8:48A Dictated by : OTTONIEL OSHEA MD This examination was interpreted and the report reviewed and electronically signed by: OTTONIEL OSHEA MD on Mar 30 2023 8:49AM [facility] DIVISION OF RADIOLOGY * * *Final Report* * * DATE OF EXAM: Mar 30 2023 8:45AM WOX [id number] - XR CHEST 2V FRONTAL/LAT / PROCEDURE REASON: Fever, unspecified fever cause * * * * Physician Interpretation * * * * EXAMINATION: CHEST RADIOGRAPH (2 VIEW FRONTAL & LATERAL) CLINICAL HISTORY: Fever, unspecified fever cause MQ: XC2_6 EXAM DATE/TIME: 03/30/2023 8:45 AM COMPARISON: Chest x-ray on 03/09/2021 RESULT: Lines, tubes, and devices: None. Lungs and pleura: No consolidation. No lung mass. No pleural effusion. No pneumothorax. Cardiomediastinal silhouette: Normal cardiomediastinal silhouette. Bones and soft tissues: Unremarkable. DIVISION OF RADIOLOGY Provider, [facility] - 03/30/2023 * * *Final Report* * * DATE OF EXAM: Mar 30 2023 8:45AM WOX [id number] - XR CHEST 2V FRONTAL/LAT / PROCEDURE REASON: Fever, unspecified fever cause * * * * Physician Interpretation * * * * EXAMINATION: CHEST RADIOGRAPH (2 VIEW FRONTAL & LATERAL) CLINICAL HISTORY: Fever, unspecified fever cause MQ: XC2_6 EXAM DATE/TIME: 03/30/2023 8:45 AM COMPARISON: Chest x-ray on 03/09/2021 RESULT: Lines, tubes, and devices: None. Lungs and pleura: No consolidation. No lung mass. No pleural effusion. No pneumothorax. Cardiomediastinal silhouette: Normal cardiomediastinal silhouette. Bones and soft tissues: Unremarkable. IMPRESSION IMPRESSION: No acute radiographic abnormality. Behaviour Support Teacher: PSCB Transcribe Date/Time: Mar 30 2023 8:48A Dictated by : OTTONIEL OSHEA MD This examination was interpreted and the report reviewed and electronically signed by: OTTONIEL OSHEA MD on Mar 30 2023 8:49AM EST [facility] Radiology Study observation (narrative) [facility] XR Chest PA and LateralOrder ed By: [facility] PAT KN[facility] ([id number]) 1980 F Date Time Provider Department 03/23/23 CHAR[facility] ELLIOTT AGSPINE3 During your visit today, we recorded the following information about you: Dia Gutierrez 03/23/2023 3:31 PM Signed Patients appointment needs rescheduled due to provider schedule change. Called patient and left voicemail to call back. Allergies As of Date: 03/23/2023 Noted Allergy Reaction PAMPRIN MULTI-SYMPTOM (ACETAMINOP* 7 2 - Rash 9 - Itching 12 - Shortness of Breath Comments: Severe itching all over body, slight rash, hyper ventilating, lips swelled badly BUSPAR (BUSPIRONE) 11/12/2020 1 - Mental Status Change Comments: Caused suicidal thoughts CODEINE 02/03/2007 4 - Hives 9 - Itching LAMOTRIGINE 01/03/2017 4 - Hives NITROFURANTOIN MACROCRYSTAL 12/24/2014 16 - Unknown PROMETHAZINE-PHENYLEP HRINE 04/27/2010 5 - Intolerance Comments: Make her feel like passing out Date Reviewed: 02/08/2023 Reviewed by: Sam Khan APRN.DISABILITY MANAGER - Fully Assessed Reason for Visit: Appointment [[id number]] Prescriptions as of 03/23/2023 - oxyCODONE-acetaminoph en (PERCOCET) 5-325 mg tablet Take 1 tablet by mouth twice daily as needed for pain for up to 14 days. Do not start before March 21, 2023. - nicotine (NICODERM) 21 mg/24 hr Apply 1 Patch as directed every 24 hours. - nicotine polacrilex (NICORETTE) 4 mg gum Take 1 Each by mouth as needed (urge to smoke). No more than 24 per day - acetaminophen (TYLENOL) 325 mg tablet Take 650 mg by mouth every 6 hours as needed. - traZODone (DESYREL) 100 mg tablet Take 1 tablet by mouth daily at bedtime. Problem List As Of Date 03/23/2023 Noted Resolved Irritable bowel syndrome [K58.9] 10/27/2012 Nonallopathic lesion of lower extremities, not *11/23/2005 10/27/2012 ALLERGIC RHINITIS NOS [J30.9] 04/05/2006 Migraine, unspecified, with intractable migrain* 10/27/2012 Diarrhea [R19.7] Internal derangement of knee [M23.90] 07/28/2009 10/27/2012 Chronic pain [G89.29] 05/29/2010 Depression [F32.A] Anxiety [F41.9] ADD (attention deficit hyperactivity disorder, *09/19/2013 Hypertension [I10] 09/11/2014 Congestive heart failure (HCC) [I50.9] 09/11/2014 Hepatitis C virus infection without hepatic com*06/15/2016 Chronic hepatitis C without hepatic coma (HCC) *06/15/2016 06/15/2016 Insomnia [G47.00] 01/26/2017 Encounter Status:Closed by DAI GUTIERREZ on 03/23/23 Normal [facility] XR SHOULDER MINIMUM 2 VIEWS RIGHTon 03-15-2023 XR SHOULDER MINIMUM 2 VIEWS RIGHT ORIGINAL EXAMINATION: TWO XRAY VIEWS OF THE RIGHT SHOULDER03/15/2023 10:42 am COMPARISON: MRI shoulder September 2022, x-ray chest July 2020 HISTORY: ORDERING SYSTEM PROVIDED HISTORY: Reason for Exam: trauma, history of rolling over in bed and felt a pop in the morning. History of injury to shoulder at work 1 month ago, FINDINGS: Axillary view could not be obtained due to inability to position patient. No fracture or dislocation is identified. There are no abnormal periarticular calcifications. The acromioclavicular joint is normal. The included thoracic structures show no acute abnormality. IMPRESSION: No acute fracture or dislocation. I have personally reviewed the images of this examination and agree with the resident's findings and interpretation. Interpreted by: Antonio Abreu MD Preliminary Report By: Anthony Ruffin Electronically signed By Antonio Abreu MD Dictated Date: 03/15/2023 10:45:24 AM Prelim Date: 03/15/2023 10:58:13 AM Sign Date: 03/15/2023 10:58:13 AM Ordering Provider: LAVONNE WEAVER [facility] ([place]) MRI SHOULDER WO/W EDWIN GONZALES Damon 03-11-2023 [facility] XR Sacrum and Coccyx 3 Views on 12-03-2022 IMPRESSION: NO ACUTE OSSEOUS ABNORMALITY Behaviour Support Teacher: DARSHAN Transcribe Date/Time: Dec 03 2022 5:09P Dictated by : TYESHA MARX MD This examination was interpreted and the report reviewed and electronically signed by: TYESHA MARX MD on Dec 03 2022 5:09PM [facility] DIVISION OF RADIOLOGY * * *Final Report* * * DATE OF EXAM: Dec 01 2022 2:08PM WOX [id number] - XR SACRUM/COCCYX 3V AP/LAT / PROCEDURE REASON: Coccydynia * * * * Physician Interpretation * * * * HISTORY (as given from clinical provider): Coccydynia . Additional history provided by the performing technologist (if any): pain in coccyx for years and getting worse whenever she sits or lays and puts pressure on it no inj TECHNIQUE: XR SACRUM/COCCYX 3V AP/LAT COMPARISON: None RESULT: Normal SI joints. Normal sacrum and coccyx without evidence of fracture. Surgical clip in the pelvis. No other significant abnormality. --- DIVISION OF RADIOLOGY Provider, Grace Garcia - 12/03/2022 * * *Final Report* * * DATE OF EXAM: Dec 01 2022 2:08PM WOX 5246 - XR SACRUM/COCCYX 3V AP/LAT / PROCEDURE REASON: Coccydynia * * * * Physician Interpretation * * * * HISTORY (as given from clinical provider): Coccydynia . Additional history provided by the performing technologist (if any): pain in coccyx for years and getting worse whenever she sits or lays and puts pressure on it no inj TECHNIQUE: XR SACRUM/COCCYX 3V AP/LAT COMPARISON: None RESULT: Normal SI joints. Normal sacrum and coccyx without evidence of fracture. Surgical clip in the pelvis. No other significant abnormality. --- IMPRESSION IMPRESSION: NO ACUTE OSSEOUS ABNORMALITY Behaviour Support Teacher: DARSHAN Transcribe Date/Time: Dec 03 2022 5:09P Dictated by : TYESHA MARX MD This examination was interpreted and the report reviewed and electronically signed by: TYESHA MARX MD on Dec 03 2022 5:09PM EST [facility] XR Sacrum and Coccyx 3 Views Ordered By: [facility] Provider on 12-03-2022 [facility] XR Sacrum and Coccyx 3 Views on 12-01-2022 Radiology Study observation (narrative) [facility] STREP A MOLECULAR (POC)on Procedural Control Valid [facility] Strep A (POCT) Negative Negative [facility] XR DIGIT GENERAL 3V FRONTAL/ LAT/OBL RIGHTon 03-16-2022 [facility] XR Finger - right AP and Lat eral and obliqueon 03-16-2022 IMPRESSION: Soft tissue swelling. There is no radiopaque foreign body. Behaviour Support Teacher: DARSHAN Transcribe Date/Time: Mar 16 2022 12:22P Dictated by : NATY GRAFF MD This examination was interpreted and the report reviewed and electronically signed by: NATY GRAFF MD on Mar 16 2022 12:25PM [facility] DIVISION OF RADIOLOGY * * *Final Report* * * DATE OF EXAM: Mar 16 2022 8:42AM WOX [id number] - XR DIGIT 3V FRONTAL/LAT/OBL RT / PROCEDURE REASON: Splinter of finger * * * * Physician Interpretation * * * * EXAMINATION: XR DIGIT 3V FRONTAL/LAT/OBL RT HISTORY: Splinter of finger. Pain and swelling. TECHNIQUE: XR DIGIT 3V FRONTAL/LAT/OBL RT Laterality: RIGHT Number of different views (projections): 3 M: XB_1 COMPARISON: There are no prior relevant examinations available for comparison within the [facility] Imaging Archives. RESULT: AP, oblique and lateral radiographs of the right fourth finger demonstrate focal soft tissue prominence/swelling along the antiradial the lower margin of the distal phalanx. There is no radiopaque foreign body. No underlying fracture. DIVISION OF RADIOLOGY Provider, [facility] * * *Final Report* * * DATE OF EXAM: Mar 16 2022 8:42AM WOX [id number] - XR DIGIT 3V FRONTAL/LAT/OBL RT / PROCEDURE REASON: Splinter of finger * * * * Physician Interpretation * * * * EXAMINATION: XR DIGIT 3V FRONTAL/LAT/OBL RT HISTORY: Splinter of finger. Pain and swelling. TECHNIQUE: XR DIGIT 3V FRONTAL/LAT/OBL RT Laterality: RIGHT Number of different views (projections): 3 M: XB_1 COMPARISON: There are no prior relevant examinations available for comparison within the [facility] Imaging Archives. RESULT: AP, oblique and lateral radiographs of the right fourth finger demonstrate focal soft tissue prominence/swelling along the antiradial the lower margin of the distal phalanx. There is no radiopaque foreign body. No underlying fracture. IMPRESSION IMPRESSION: Soft tissue swelling. There is no radiopaque foreign body. Behaviour Support Teacher: DARSHAN Transcribe Date/Time: Mar 16 2022 12:22P Dictated by : NATY GRAFF MD This examination was interpreted and the report reviewed and electronically signed by: NATY GRAFF MD on Mar 16 2022 12:25PM EST [facility] Radiology Study observation (narrative) [facility] XR Finger - right AP and Lat eral and obliqueOrdered By: [facility] Provider on 03-16-2022 [facility] Basic Metabolic Panelon 06-28 Anion gap [Moles/Vol] 0 mmol/L Low 3-13 [facility] Comment on above: Performed By: #### H EMDF, BMP3, QWAL2 #### [facility] [address] [place] [address] Calcium [Mass/Vol] 9.4 mg/dL Normal 8.4-10.4 [facility] Comment on above: Performed By: #### H EMDF, BMP3, QWAL2 #### [facility] [address] [place] [address] CO2 [Moles/Vol] 30 mmol/L Normal 22-30 [facility] Comment on above: Performed By: #### H EMDF, BMP3, QWAL2 #### [facility] [address] [place] [address] Creatinine [Mass/Vol] 0.70 mg/dL Normal 0.52-1.25 [facility] Comment on above: Performed By: #### H EMDF, BMP3, QWAL2 #### [facility] [address] [place] [address] eGFR OTHER > 90.0 Normal >60 [facility] Comment on above: Result Comment: KDIG O guidelines provide the following GFR categories: Stage GFR(ml/min/1.73 m2) Terms G1 >=90 Normal or high G2 60-89 Mildly decreased* G3a 45-59 Mildly to moderately decreased G3b 30-44 Moderately to severely decreased G4 15-29 Severely decreased G5 <15 Kidney failure *Relative to young adult level. In the absence of evidence of kidney damage, neither GFR category G1 nor G2 fulfill the criteria for CKD. The CKD-EPI equation is validated in individuals 18 years of age and older. Currently the best equation for estimating glomerular filtration rate (GFR) from serum creatinine in children is the Bedside Smith equation. It is less accurate in patients with extremes of muscle mass, restriction of dietary protein, ingestion of creatine, extra-renal metabolism of creatinine, or treatment with medications that affect renal tubular creatinine secretion. Performed By: #### H MIRA GARCIA3, QWAL2 #### [facility] [address] [place] [address] GFR/1.73 sq M.predicted among blacks MDRD (S/P/Bld) [Vol rate/Area] mL/min/{1.73_m2} Normal >60 [facility] Comment on above: Performed By: #### H MIRA GARCIA3, QWAL2 #### [facility] [address] [place] [address] Glucose [Mass/Vol] 86 mg/dL Normal 70-100 [facility] Comment on above: Performed By: #### H MIRA GARCIA3, QWAL2 #### [facility] [address] [place] [address] Urea nitrogen [Mass/Vol] 2 mg/dL Low 9-20 [facility] Comment on above: Performed By: #### H MIRA GARCIA3, QWAL2 #### [facility] [address] [place] [address] Chloride [Moles/Vol] 109 mmol/L High 98-107 [facility] Comment on above: Performed By: #### H RADHA BMP3, QWAL2 #### [facility] [address] [place] [place] [address] Potassium [Moles/Vol] 3.2 mmol/L Low 3.5-5.1 [facility] Comment on above: Performed By: #### H RADHA BMP3, QWAL2 #### [facility] [address] [place] [place] [address] Sodium [Moles/Vol] 139 mmol/L Normal 135-145 [facility] Comment on above: Performed By: #### H RADHA BMP3, QWAL2 #### [facility] [address] [place] [address] Anion gap [Moles/Vol] 0 mmol/L Low 3 - 13 mmol/L [facility] Calcium [Mass/Vol] 9.4 mg/dL 8.4 - 10. 4 mg/dL [facility] Chloride [Moles/Vol] 109 mmol/L High 98 - 107 mmol/L [facility] CO2 [Moles/Vol] 30 mmol/L 22 - 30 mmol/L [facility] Creatinine [Mass/Vol] 0.7 mg/dL 0.52 - 1.25 mg/dL [facility] EGFR IF NonAfrican Bahamian >90.0 >60 mL/min [facility] Comment on above: KDIGO guidelines pro vide the following GFR categories: Stage GFR(ml/min/1.73 m2) Terms G1 >=90 Normal or high G2 60-89 Mildly decreased* G3a 45-59 Mildly to moderately decreased G3b 30-44 Moderately to severely decreased G4 15-29 Severely decreased G5 <15 Kidney failure *Relative to young adult level. In the absence of evidence of kidney damage, neither GFR category G1 nor G2 fulfill the criteria for CKD. The CKD-EPI equation is validated in individuals 18 years of age and older. Currently the best equation for estimating glomerular filtration rate (GFR) from serum creatinine in children is the Bedside Smith equation. It is less accurate in patients with extremes of muscle mass, restriction of dietary protein, ingestion of creatine, extra-renal metabolism of creatinine, or treatment with medications that affect renal tubular creatinine secretion. GFR/1.73 sq M.predicted among blacks MDRD (S/P/Bld) [Vol rate/Area] mL/min/{1.73_m2} >60 mL/min [facility] Glucose [Mass/Vol] 86 mg/dL 70 - 100 mg/dL [facility] Interpretation and review of laboratory results Abnormal [facility] Potassium [Moles/Vol] 3.2 mmol/L Low 3.5 - 5.1 mmol/L [facility] Sodium [Moles/Vol] 139 mmol/L 135 - 145 mmol/L [facility] Urea nitrogen (BldV) [Mass/Vol] 2 mg/dL Low 9 - 20 mg/dL [facility] CBC WITH AUTO DIFFERENTIALon 07-18-2021 Absolute Baso # 0.1 10*3/uL 0.0 - 0.2 10*3/uL [facility] Absolute Neut # 5.0 10*3/uL 1.8 - 7.0 10*3/uL [facility] Basophils/100 WBC (Bld) 1.3 % 0.0 - 2.0 % [facility] Eosinophils (Bld) [#/Vol] 0.1 10*3/uL 0.0 - 0.5 10*3/uL [facility] Eosinophils/100 WBC (Bld) 1.2 % 1.0 - 6.0 % [facility] Granulocytes/100 WBC (Bld) 54.7 % 40.0 - 80.0 % [facility] Hematocrit (Bld) [Volume fraction] 37.5 % 35.0 - 47.0 % [facility] Hemoglobin.gastrointe stinal spec 1 Ql (Stl) 13.1 g/dL 11.7 - 16.0 g/dL [facility] Lymphocytes (Bld) [#/Vol] 3.4 10*3/uL 1.0 - 4.3 10*3/uL [facility] Lymphocytes/100 WBC (Bld) 36.9 % 20.0 - 40.0 % [facility] MCH (RBC) [Entitic mass] 31.8 pg 26.0 - 34.0 pg [facility] MCHC (RBC) [Mass/Vol] 35.0 % 32.0 - 36.0 % [facility] MCV (RBC) [Entitic vol] 90.7 fL 79.0 - 98.0 fL [facility] Monocytes (Bld) [#/Vol] 0.5 10*3/uL 0.0 - 0.8 10*3/uL [facility] Monocytes/100 WBC (Bld) 5.9 % 2.0 - 10.0 % [facility] Platelet distribution width (Bld) [Ratio] 13.2 % 11.5 - 14.5 % [facility] Platelet mean volume (Bld) [Entitic vol] 7.6 fL 7.4 - 10.4 fL [facility] Platelets (Bld) [#/Vol] 365 10*3/uL 140 - 440 10*3/uL [facility] RBC (Bld) [#/Vol] 4.13 10*6/uL 3.80 - 5.2 0 10*6/uL [facility] WBC (Bld) [#/Vol] 9.2 10*3/uL 3.6 - 10.7 10*3/uL [facility] Test Performed by [facility] [employer] [facility], [facility] [address]aira [address] , [place], [place] [id number] [place] [address] [address] [facility] [address] HEAD WO CONTRASTon 2021 Patient Name: PAT KNIGHT Computed Tomography ACCESSION EXAM DATE/TIME PROCEDURE ORDERING PROVIDER [id number] 07/18/2021 18:[address] Head or Brain w/o MD FERRELL DOUGALAS R. Contrast CPT code 73106 Reason For Exam (CT Head or Brain w/o Contrast) left mandibular tooth extraction. no mastoid pain clinically. signs of mastoditis? Feels like it goes into left jaw Report CT head without contrast History: Pain Protocol: 3 mm axial images without IV contrast There is no evidence of intracranial hemorrhage, extra-axial fluid collection, hydrocephalus, or acute infarct. No evidence of a mass of mass affect. The visualized portions of the paranasal sinuses and the mastoid air cells are clear. IMPRESSION: No acute findings. Report Dictated on --- Final --- Dictating Physician: MD SAMSON MALAY Signed Date and Time: 07/18/2021 6:58 pm Signed by: MD SAMSON MALAY Transcribed Date and Time: 07/18/2021 6:59 [facility] Thai Samson MD - 07/18/2021 Patient Name: PAT KNIGHT Computed Tomography ACCESSION EXAM DATE/TIME PROCEDURE ORDERING PROVIDER [id number] 07/18/2021 18:[address] Head or Brain w/o MD FERRELL DOUGALAS R. Contrast CPT code 49468 Reason For Exam (CT Head or Brain w/o Contrast) left mandibular tooth extraction. no mastoid pain clinically. signs of mastoditis? Feels like it goes into left jaw Report CT head without contrast History: Pain Protocol: 3 mm axial images without IV contrast There is no evidence of intracranial hemorrhage, extra-axial fluid collection, hydrocephalus, or acute infarct. No evidence of a mass of mass affect. The visualized portions of the paranasal sinuses and the mastoid air cells are clear. IMPRESSION: No acute findings. Report Dictated on --- Final --- Dictating Physician: MD SAMSON MALAY Signed Date and Time: 07/18/2021 6:58 pm Signed by: MD SAMSON MALAY Transcribed Date and Time: 07/18/2021 6:59 [facility] Work Phone: CT HEAD WO CONTRASTOrdered B y: Thai Mali on 07-18-2021 [facility] Work Phone: CT Head or Brain w/o Contras ton 07-18-2021 CT Head or Brain w/o Contrast Patient Name: PAT KNIGHT Computed Tomography ACCESSION EXAM DATE/TIME PROCEDURE ORDERING PROVIDER [id number] 07/18/2021 18:[address] Head or Brain w/o MD FERRELL DOUGALAS R. Contrast CPT code 75593 Reason For Exam (CT Head or Brain w/o Contrast) left mandibular tooth extraction. no mastoid pain clinically. signs of mastoditis? Feels like it goes into left jaw Report CT head without contrast History: Pain Protocol: 3 mm axial images without IV contrast There is no evidence of intracranial hemorrhage, extra-axial fluid collection, hydrocephalus, or acute infarct. No evidence of a mass of mass affect. The visualized portions of the paranasal sinuses and the mastoid air cells are clear. IMPRESSION: No acute findings. Report Dictated on Final Dictating Physician: MD SAMSON MALAY Signed Date and Time: 07/18/2021 6:58 pm Signed by: MD SAMSON MALAY Transcribed Date and Time: 07/18/2021 6:59 Normal [facility] CT MAXILLOFACIAL W CONTRASTo n 07-18-2021 Patient Name: PAT KNIGHT Computed Tomography ACCESSION EXAM DATE/TIME PROCEDURE ORDERING PROVIDER [id number] 07/18/2021 19:[address] Maxillofacial w/ MD FERRELL DOUGALAS R. Contrast CPT code 90363 Q9967 Reason For Exam (CT Maxillofacial w/ Contrast) Left lower mandible pain. just had a tooth extracted there on tuesday. any underlying abscess or sub-q infection? Vs post-op pain alone. Report CT face with contrast HISTORY: Left mandibular tooth extraction, left mandibular pain Protocol: 2 mm axial images with intravenous contrast Air is present in the recently removed left mandibular tooth socket. No bony erosions. No fracture or dislocation. No evidence of an abscess. No lymphadenopathy. IMPRESSION: Air is present in the recently removed left mandibular tooth socket. Report Dictated on --- Final --- Dictating Physician: MD SAMSON MALAY Signed Date and Time: 07/18/2021 7:11 pm Signed by: MD SAMSON MALAY Transcribed Date and Time: 07/18/2021 7:14 [facility] Thai Samson MD - 07/18/2021 Patient Name: PAT KNIGHT Computed Tomography ACCESSION EXAM DATE/TIME PROCEDURE ORDERING PROVIDER [id number] 07/18/2021 19:[address] Maxillofacial w/ MD MARIAELENA, ALISSON R. Contrast CPT code 76372 Q9967 Reason For Exam (CT Maxillofacial w/ Contrast) Left lower mandible pain. just had a tooth extracted there on tuesday. any underlying abscess or sub-q infection? Vs post-op pain alone. Report CT face with contrast HISTORY: Left mandibular tooth extraction, left mandibular pain Protocol: 2 mm axial images with intravenous contrast Air is present in the recently removed left mandibular tooth socket. No bony erosions. No fracture or dislocation. No evidence of an abscess. No lymphadenopathy. IMPRESSION: Air is present in the recently removed left mandibular tooth socket. Report Dictated on --- Final --- Dictating Physician: MD SAMSON MALAY Signed Date and Time: 07/18/2021 7:11 pm Signed by: MD SAMSON MALAY Transcribed Date and Time: 07/18/2021 7:14 [facility] Work Phone: [facility] Work Phone: CT Maxillofacial w/ Contrast on 07-18-2021 CT Maxillofacial w/ Contrast [facility]: [id number] Comput[facility] Tomography ACCESSION EXAM DATE/TIME PROCEDURE ORDERING PROVIDER [id number] 07/18/2021 19:[address] Maxillofacial w/ MD MARIAELENA, ALISSON Sanz Contrast CPT code 80676 Q9967 Reason For Exam (CT Maxillofacial w/ Contrast) Left lower mandible pain. just had a tooth extracted there on tuesday. any underlying abscess or sub-q infection? Vs post-op pain alone. Report CT face with contrast HISTORY: Left mandibular tooth extraction, left mandibular pain Protocol: 2 mm axial images with intravenous contrast Air is present in the recently removed left mandibular tooth socket. No bony erosions. No fracture or dislocation. No evidence of an abscess. No lymphadenopathy. IMPRESSION: Air is present in the recently removed left mandibular tooth socket. Report Dictated on Final Dictating Physician: MD SAMSON MALAY Signed Date and Time: 07/18/2021 7:11 pm Signed by: MD SAMSON MALAY Transcribed Date and Time: 07/18/2021 7:14 Normal [facility] HCG Qualitative, Serumon hCG Qual Negative [facility] Comment on above: Reference Range: NEG ATIVE Effective 09/07/2019, the reference interval for the qualitative test has been updated. This test detects hCG at concentrations of 10 mIU/L or greater in serum. Hemogram w/ Autodiffon 07-18 Abs Baso Cnt 0.1 10*3/uL Normal 0.0-0.2 [facility] Comment on above: Performed By: #### H EMDF, BMP3, QWAL2 #### [facility] [address] [place] [address] Abs Neutrophile Cnt 5.0 10*3/uL Normal 1.8-7.0 [facility] Comment on above: Performed By: #### H EMDF, BMP3, QWAL2 #### [facility] [address] [place] [address] Basophils/100 WBC (Bld) 1.3 % Normal 0.0-2.0 [facility] Comment on above: Performed By: #### H EMDF, BMP3, QWAL2 #### [facility] [address] [place] [address] Eosinophils (Bld) [#/Vol] 0.1 10*3/uL Normal 0.0-0.5 [facility] Comment on above: Performed By: #### H EMDF, BMP3, QWAL2 #### [facility] [address] [place] [address] Eosinophils/100 WBC (Bld) 1.2 % Normal 1.0-6.0 [facility] Comment on above: Performed By: #### H EMDF, BMP3, QWAL2 #### [facility] [address] [place] [address] Erythrocyte distribution width (RBC) [Ratio] 13.2 % Normal 11.5-14.5 [facility] Comment on above: Performed By: #### H EMDF, BMP3, QWAL2 #### [facility] [address] [place] [address] Granulocytes/100 WBC (Bld) 54.7 % Normal 40.0-80.0 [facility] Comment on above: Performed By: #### H EMDF, BMP3, QWAL2 #### [facility] [address] [place] [address] Hematocrit (Bld) [Volume fraction] 37.5 % Normal 35.0-47.0 [facility] Comment on above: Performed By: #### H EMDF, BMP3, QWAL2 #### [facility] [address] [place] [address] Hemoglobin (Bld) [Mass/Vol] 13.1 g/dL Normal 11.7-16.0 [facility] Comment on above: Performed By: #### H EMDF, BMP3, QWAL2 #### [facility] [address] [place] [address] Lymphocytes (Bld) [#/Vol] 3.4 10*3/uL Normal 1.0-4.3 [facility] Comment on above: Performed By: #### H EMDF, BMP3, QWAL2 #### [facility] [address] [place] [address] Lymphocytes/100 WBC (Bld) 36.9 % Normal 20.0-40.0 [facility] Comment on above: Performed By: #### H EMDF, BMP3, QWAL2 #### [facility] [address] [place] [address] MCH (RBC) [Entitic mass] 31.8 pg Normal 26.0-34.0 [facility] Comment on above: Performed By: #### H EMDF, BMP3, QWAL2 #### [facility] [address] [place] [address] MCHC 35.0 % Normal 32.0-36.0 [facility] Comment on above: Performed By: #### H EMDF, BMP3, QWAL2 #### [facility] [address] [place] [address] MCV (RBC) [Entitic vol] 90.7 fL Normal 79.0-98.0 [facility] Comment on above: Performed By: #### H EMDF, BMP3, QWAL2 #### [address] [address] Monocytes (Bld) [#/Vol] 0.5 10*3/uL Normal 0.0-0.8 [facility] Comment on above: Performed By: #### H EMDF, BMP3, QWAL2 #### [facility] [address] [place] [address] Monocytes/100 WBC (Bld) 5.9 % Normal 2.0-10.0 [facility] Comment on above: Performed By: #### H EMDF, BMP3, QWAL2 #### [facility] [address] [place] [address] Platelet mean volume (Bld) [Entitic vol] 7.6 fL Normal 7.4-10.4 [facility] Comment on above: Performed By: #### H EMDF, BMP3, QWAL2 #### [facility] [address] [place] [address] Platelets (Bld) [#/Vol] 365 10*3/uL Normal 140-440 [facility] Comment on above: Performed By: #### H EMDF, BMP3, QWAL2 #### [facility] [address] [place] [address] RBC (Bld) [#/Vol] 4.13 10*6/uL Normal 3.80-5.20 [facility] Comment on above: Performed By: #### H EMDF, BMP3, QWAL2 #### [facility] [address] [place] [address] WBC (Bld) [#/Vol] 9.2 10*3/uL Normal 3.6-10.7 [facility] Comment on above: Performed By: #### H EMDF, BMP3, QWAL2 #### [facility] [address] [place] [address] No Panel Informationon 07-18 Test Performed by [facility], [address] [place], [place] [id number] [place] [address] LAB [facility] Radiology Study observation (narrative) [facility] Work Phone: hCG Qual Pregon 07-18-2021 hCG Qual Preg Negative Normal [facility] Comment on above: Result Comment: Refe rence Range: NEGATIVE Effective 09/07/2019, the reference interval for the qualitative test has been updated. This test detects hCG at concentrations of 10 mIU/L or greater in serum. Performed By: #### H EMDF, BMP3, QWAL2 #### [facility] [address] [place] [address] XR Chest PA and Lateralon IMPRESSION: No acute radiographic abnormality. Behaviour Support Teacher: DARSHAN Transcribe Date/Time: Mar 09 2021 10:00A Dictated by : ALEX MUNIZ MD This examination was interpreted and the report reviewed and electronically signed by: ALEX MUNIZ MD on Mar 09 2021 10:01AM [facility] DIVISION OF RADIOLOGY * * *Final Report* * * DATE OF EXAM: Sep 13 2021 9:58AM WOX 5291 - XR CHEST 2V FRONTAL/LAT / PROCEDURE REASON: Cough * * * * Physician Interpretation * * * * EXAMINATION: CHEST RADIOGRAPH (2 VIEW FRONTAL & LATERAL) CLINICAL HISTORY: Cough MQ: XC2_6 EXAM DATE/TIME: 03/09/2021 9:58 AM COMPARISON: No relevant prior studies available. RESULT: Lines, tubes, and devices: None. Lungs and pleura: No consolidation. No lung mass. No pleural effusion. No pneumothorax. Cardiomediastinal silhouette: Normal cardiomediastinal silhouette. Bones and soft tissues: Unremarkable. DIVISION OF RADIOLOGY Provider, [facility] - 03/09/2021 * * *Final Report* * * DATE OF EXAM: Mar 09 2021 9:58AM WOX 5291 - XR CHEST 2V FRONTAL/LAT / PROCEDURE REASON: Cough * * * * Physician Interpretation * * * * EXAMINATION: CHEST RADIOGRAPH (2 VIEW FRONTAL & LATERAL) CLINICAL HISTORY: Cough MQ: XC2_6 EXAM DATE/TIME: 03/09/2021 9:58 AM COMPARISON: No relevant prior studies available. RESULT: Lines, tubes, and devices: None. Lungs and pleura: No consolidation. No lung mass. No pleural effusion. No pneumothorax. Cardiomediastinal silhouette: Normal cardiomediastinal silhouette. Bones and soft tissues: Unremarkable. IMPRESSION IMPRESSION: No acute radiographic abnormality. Behaviour Support Teacher: DARSHAN Transcribe Date/Time: Mar 09 2021 10:00A Dictated by : ALEX MUNIZ MD This examination was interpreted and the report reviewed and electronically signed by: ALEX MUNIZ MD on Mar 09 2021 10:01AM EST [facility] Radiology Study observation (narrative) [facility] XR Chest PA and LateralOrder ed By: [facility] Provider on 03-09-2021 [facility] Basic Panelon 07-02-2018 Anion gap 3 molar conc 8 mmol/L Normal 8-20 [facility] Comment on above: Performed By: #### L P8 ####[place] [address] Calcium mass conc 8.9 mg/dL Normal 8.5-10.1 [facility] Comment on above: Performed By: #### L P8 ####[facility] [place], [place] [address] Chloride molar conc 104 mmol/L Normal 98-107 [facility] Comment on above: Performed By: #### L P8 ####[facility] [place], [place] [address] CO2 molar conc 27 mmol/L Normal 21-32 [facility] Comment on above: Performed By: #### L P8 ####[facility] [place], [place] [address] Creatinine mass conc 0.87 mg/dL Normal 0.51-0.95 [facility] Comment on above: Performed By: #### L P8 ####[address] [address] Glucose mass conc 89 mg/dL Normal 70-99 [facility] Comment on above: Performed By: #### L P8 ####[address] [address] Potassium molar conc 3.5 mmol/L Normal 3.5-5.1 [facility] Comment on above: Performed By: #### L P8 ####[address] [address] Sodium molar conc 136 mmol/L Normal 136-145 [facility] Comment on above: Performed By: #### L P8 ####[address] [address] Urea nitrogen mass conc (Bld) 11 mg/dL Normal 7-25 [facility] Comment on above: Performed By: #### L P8 ####[address] [address] Urea nitrogen/Creatinine mass ratio 13 mg/mg Normal 10-20 [facility] Comment on above: Performed By: #### L P8 ####[address] [address] CPKon 07-02-2018 CPK 539 U/L High 26-192 [facility] Comment on above: Performed By: #### L CK ####[address], [place] [address] Cult Urineon 07-02-2018 Cult Urine Test performed at [facility] No growth Normal [facility] Comment on above: Performed By: #### C _URI ####[place] [address] Hemogram/Manual Diffon 07-02 Abs. Baso 0.00 thou/cmm Normal 0.00-0.08 [facility] Comment on above: Performed By: #### L MCBD ####[place] [address] Abs. Eosin 0.14 thou/cmm Normal 0.00-0.41 [facility] Comment on above: Performed By: #### L MCBD ####[place] [address] Abs. Lymph 3.15 thou/cmm Normal 1.50-3.65 [facility] Comment on above: Performed By: #### L MCBD ####[place] [address] Abs. Sussex 1.10 thou/cmm High 0.20-1.00 [facility] Comment on above: Performed By: #### L MCBD ####[place] [address] Abs. Neut (ANC) 9.31 thou/cmm High 3.00-5.67 [facility] Comment on above: Performed By: #### L MCBD ####[place] [address] Basophil 0.0 % Normal [facility] Comment on above: Performed By: #### L MCBD ####[place] [address] Diff Type Manual Diff Normal [facility] Comment on above: Performed By: #### L MCBD ####[place] [address] Eosinophil 1.0 % Normal [facility] Comment on above: Performed By: #### L MCBD ####[facility] [place] [address] Lymphocyte 23.0 % Normal [facility] Comment on above: Performed By: #### L MCBD ####[facility] [place] [address] Monocyte 8.0 % Normal [facility] Comment on above: Performed By: #### L MCBD ####[place] [address] Platelet Estimate Normal Normal [facility] Comment on above: Performed By: #### L MCBD ####[place] [address] RBC Morphology Normal Normal [facility] Comment on above: Performed By: #### L MCBD ####[place] [address] Seg Neutrophil 68.0 % Normal [facility] Comment on above: Performed By: #### L MCBD ####[place] [address] Erythrocyte distribution width Auto Ratio (RBC) 12.0 % Normal 11.5-15.9 [facility] Comment on above: Performed By: #### L MCBD ####[place] [address] Hct 39.1 % Normal 37.0-47.0 [facility] Comment on above: Performed By: #### L MCBD ####[place] [address] Hgb 13.5 g/dL Normal 12.0-16.0 [facility] Comment on above: Performed By: #### L MCBD ####[place] [address] MCH 32.1 pg High 27.0-31.0 [facility] Comment on above: Performed By: #### L MCBD ####[place] [address] MCHC 34.5 % Normal 32.0-36.0 [facility] Comment on above: Performed By: #### L MCBD ####[facility] [address] MCV 92.9 fl Normal 81.0-99.0 [facility] Comment on above: Performed By: #### L MCBD ####[address] [address] MPV 10.3 fl Normal 7.1-10.5 [facility] Comment on above: Performed By: #### L MCBD ####[facility] [place] [address] Platelet 256 thou/cmm Normal 150-400 [facility] Comment on above: Performed By: #### L MCBD ####[place] [address] RBC Test strip #/vol (U) 4.21 mil/cmm Normal 4.20-5.40 [facility] Comment on above: Performed By: #### L MCBD ####[place] [address] WBC 13.7 thou/cmm High 4.8-10.8 [facility] Comment on above: Performed By: #### L MCBD ####[place] [address] MDRD eGFRon 07-02-2018 GFR/1.73 sq M predicted among non-blacks MDRD vol rate/area (S/P/Bld) mL/min/{1.73_m2} Normal >60mL/min/1.73m 2 [facility] Comment on above: Result Comment: If t he patient is , multiply the result by 1.210. Performed By: #### L GFR ####[place] [address] Rapid Influenza A/Bon 2018 Rapid Influenza A/B See below Normal Negative [facility] Comment on above: Result Comment: Nega tive for influenza A and B. Performed By: #### L RFLU ####[place] [address] TSHon 07-02-2018 Thyrotropin Qn 1.96 uIU/mL Normal 0.34-4.82 [facility] Comment on above: Performed By: #### L TSH ####[place] [address] Urinalysis Routineon 019 Appearance Nom (U) 1+ (HAZY) Normal [facility] Comment on above: Performed By: #### L URIN ####[place] [address] Bacteria LM.HPF #/area (Urine sed) MANY Abnormal None [facility] Comment on above: Performed By: #### L URIN ####[place] [address] Bilirubin Urine Negative Normal Negative [facility] Comment on above: Performed By: #### L URIN ####[place] [address] Color Nom (U) DARK YELLOW Normal [facility] Comment on above: Performed By: #### L URIN ####[place] [address] Ep Cells Urine 13-20 Normal 0-5 [facility] Comment on above: Performed By: #### L URIN ####[place] [address] Glucose Ql (U) Negative Normal Negative [facility] Comment on above: Performed By: #### L URIN ####[place] [address] Hemoglobin,Urine Negative Normal Negative [facility] Comment on above: Performed By: #### L URIN ####[place] [address] Ketone Urine Negative Normal Negative [facility] Comment on above: Performed By: #### L URIN ####[place] [address] Leukocytes Esterase Negative Normal Negative [facility] Comment on above: Performed By: #### L URIN ####[place] [address] Nitrites Urine Negative Normal Negative [facility] Comment on above: Performed By: #### L URIN ####[facility] [place], [place] [address] pH Test strip (U) 6.0 [pH] Normal 5.0-8.0 [facility] Comment on above: Performed By: #### L URIN ####[address] [address] Protein Urine Negative Normal Negative [facility] Comment on above: Performed By: #### L URIN ####[place] [address] RBC LM.HPF #/area (Urine sed) NONE Normal 0-3 [facility] Comment on above: Performed By: #### L URIN ####[place] [address] Specific [place], Ur 1.025 Normal 1.005-1.030 [facility] Comment on above: Performed By: #### L URIN ####[place] [address] Urobilinogen,Ur 0.2 EU/dL Normal 0.0-1.0 [facility] Comment on above: Performed By: #### L URIN ####[place] [address] WBC LM.HPF #/area (Urine sed) NONE Normal 0-5 [facility] Comment on above: Performed By: #### L URIN ####[place] [address] FOOT 3V AP/LAT/OBL LEFTon FOOT 3V AP/LAT/OBL LEFT Performed at [facility] APPROVED BY: Jonh Landry MD EXAM TITLE: THREE VIEWS OF THE LEFT FOOT DATE:01/30/2018 12:40 COMPARISON: None. CLINICAL INDICATION/HISTORY: Pain and swelling TECHNIQUE: AP, lateral and oblique images FINDINGS: No fracture or dislocation is seen. Osseous relationships are maintained on this nonweightbearing study. No suspicious osseous lesions. Joint spaces are preserved. IMPRESSION: Negative foot x-ray Normal [facility] CT ABDOMEN AND PELVIS W/O CO NTRASTon 01-23-2018 CT ABDOMEN AND PELVIS W/O CONTRAST Performed at [facility] APPROVED BY: Adry Cabrera MD Exam Title: CT OF THE ABDOMEN AND PELVIS WITHOUT INTRAVENOUS CONTRAST EXAM DATE:01/23/2018 17:42 Clinical Indication/History: Right flank pain COMPARISON: 10/25/2007 Technique: A CT of the abdomen and pelvis without Intravenous contrast. In the absence of intravenous contrast, there is decreased sensitivity for detecting infectious, neoplastic, visceral, and vascular abnormalities.Contras t: 0 mL IVCT Dose-Length Product: 930 mGy*cmCT Dose Reduction Employed: 1. Automated exposure control (AEC) was used. FINDINGS:CHEST BASE:Normal LIVER: Normal BILIARY TRACT AND GALLBLADDER:Normal PANCREAS:Normal SPLEEN:Normal ADRENAL GLANDS:Normal KIDNEYS AND RENAL COLLECTING SYSTEMS:Normal LYMPH NODES AND RETROPERITONEUM:May l VESSELS:Normal GI TRACT AND MESENTERY: There is some high attenuation material within an otherwise normal-appearing appendix suggesting some calcium. Otherwise, there are no apparent abnormalities of the GI tract. SOFT TISSUES AND MUSCULOSKELETAL:May l BLADDER:Normal PELVIC ORGANS: Right adnexal surgical clip [...] there are no signs of appendicitis otherwise. Normal [facility] Chlam/GC-DNA Amplifiedon Chlam/GC-DNA Amplified [facility] trachomat[facility] DNA NOT DETECTEDNeisseria gonorrhoeae DNA NOT DETECTEDReference range NOT DETECTEDMethod: Strand Displacement Amplification-BD ProbeTec AssayComment: A negative result does not precludeC.trachomatis or N. gonorrhoeae infection becauseresults are dependent on adequate specimen collection,absence of inhibitors, and sufficient DNA to be detected. Normal [facility] Comment on above: Performed By: #### C TGCA ####[facility] [place] [address] Comprehensive Panelon 2017 Albumin mass conc 4.0 g/dL Normal 3.4-5.0 [facility] Comment on above: Performed By: #### L P14 ####[facility] [place], [place] [address] ALP enzyme act/vol 63 U/L Normal 46-116 [facility] Comment on above: Performed By: #### L P14 ####[address] [address] ALT-SGPT Blood 41 U/L Normal 14-63 [facility] Comment on above: Performed By: #### L P14 ####[place] [address] Anion gap 3 molar conc 12 mmol/L Normal 8-20 [facility] Comment on above: Performed By: #### L P14 ####[place] [address] AST-SGOT Blood 29 U/L Normal 15-37 [facility] Comment on above: Performed By: #### L P14 ####[place] [address] Bilirubin Ql (U) 0.6 mg/dL Normal 0.2-1.0 [facility] Comment on above: Performed By: #### L P14 ####[place] [address] Calcium mass conc 8.9 mg/dL Normal 8.5-10.1 [facility] Comment on above: Performed By: #### L P14 ####[place] [address] Chloride molar conc 93 mmol/L Low 98-107 [facility] Comment on above: Performed By: #### L P14 ####[address] [address] CO2 molar conc 24 mmol/L Normal 21-32 [facility] Comment on above: Performed By: #### L P14 ####[address] [address] Creatinine mass conc 0.69 mg/dL Normal 0.51-0.95 [facility] Comment on above: Performed By: #### L P14 ####[place] [address] Glucose mass conc 69 mg/dL Low 70-99 [facility] Comment on above: Performed By: #### L P14 ####[facility] [place] [address] Potassium molar conc 3.7 mmol/L Normal 3.5-5.1 [facility] Comment on above: Performed By: #### L P14 ####[facility] [place] [address] Protein mass conc 7.5 g/dL Normal 6.4-8.2 [facility] Comment on above: Performed By: #### L P14 ####[place] [address] Sodium molar conc 125 mmol/L Low 136-145 [facility] Comment on above: Performed By: #### L P14 ####[place] [address] Urea nitrogen mass conc (Bld) 7 mg/dL Normal 7-25 [facility] Comment on above: Performed By: #### L P14 ####[place] [address] Urea nitrogen/Creatinine mass ratio 10 mg/mg Normal 10-20 [facility] Comment on above: Performed By: #### L P14 ####[place] [address] Hemogram/Manual Diffon 01-23 Abs. Baso 0.17 thou/cmm High 0.00-0.08 [facility] Comment on above: Performed By: #### L MCBD ####[place] [address] Abs. Eosin 0.00 thou/cmm Normal 0.00-0.41 [facility] Comment on above: Performed By: #### L MCBD ####[place] [address] Abs. Lymph 2.22 thou/cmm Normal 1.50-3.65 [facility] Comment on above: Performed By: #### L MCBD ####[address] [place], [place] [address] Abs. [place] 2.05 thou/cmm High 0.20-1.00 [facility] Comment on above: Performed By: #### L MCBD ####[place] [address] Abs. Neut (ANC) 12.66 thou/cmm High 3.00-5.67 [facility] Comment on above: Performed By: #### L MCBD ####[place] [address] Basophil 1.0 % Normal [facility] Comment on above: Performed By: #### L MCBD ####[place] [address] Eosinophil 0.0 % Normal [facility] Comment on above: Performed By: #### L MCBD ####[place] [address] Lymphocyte 13.0 % Normal [facility] Comment on above: Performed By: #### L MCBD ####[place] [address] Monocyte 12.0 % Normal [facility] Comment on above: Performed By: #### L MCBD ####[place] [address] Platelet Estimate Normal Normal [facility] Comment on above: Performed By: #### L MCBD ####[place] [address] RBC Morphology Normal Normal [facility] Comment on above: Performed By: #### L MCBD ####[place] [address] Seg Neutrophil 74.0 % Normal [facility] Comment on above: Performed By: #### L MCBD ####[place] [address] Diff Type Manual Diff Normal [facility] Comment on above: Performed By: #### L MCBD ####[place] [address] Erythrocyte distribution width Auto Ratio (RBC) 11.6 % Normal 11.5-15.9 [facility] Comment on above: Performed By: #### L MCBD ####[facility] [place] [address] Hct 40.8 % Normal 37.0-47.0 [facility] Comment on above: Performed By: #### L MCBD ####[place] [address] Hgb 14.2 g/dL Normal 12.0-16.0 [facility] Comment on above: Performed By: #### L MCBD ####[place] [address] MCH 31.8 pg High 27.0-31.0 [facility] Comment on above: Performed By: #### L MCBD ####[place] [address] MCHC 34.8 % Normal 32.0-36.0 [facility] Comment on above: Performed By: #### L MCBD ####[place] [address] MCV 91.3 fl Normal 81.0-99.0 [facility] Comment on above: Performed By: #### L MCBD ####[place] [address] MPV 10.0 fl Normal 7.1-10.5 [facility] Comment on above: Performed By: #### L MCBD ####[place] [address] Platelet 263 thou/cmm Normal 150-400 [facility] Comment on above: Performed By: #### L MCBD ####[place] [address] RBC Test strip #/vol (U) 4.47 mil/cmm Normal 4.20-5.40 [facility] Comment on above: Performed By: #### L MCBD ####[place] [address] WBC 17.1 thou/cmm High 4.8-10.8 [facility] Comment on above: Performed By: #### L MCBD ####[place] [address] MDRD eGFRon 01-23-2018 GFR/1.73 sq M predicted among non-blacks MDRD vol rate/area (S/P/Bld) mL/min/{1.73_m2} Normal >60mL/min/1.73m 2 [facility] Comment on above: Result Comment: If t he patient is , multiply the result by 1.210. Performed By: #### L GFR ####[place] [address] Macroscopic Urinalysison Appearance Nom (U) CLEAR Normal [facility] Comment on above: Performed By: #### L MACU ####[place] [address] Bilirubin Urine Negative Normal Negative [facility] Comment on above: Performed By: #### L MACU ####[place] [address] Color Nom (U) STRAW Normal [facility] Comment on above: Performed By: #### L MACU ####[place] [address] Glucose Ql (U) Negative Normal Negative [facility] Comment on above: Performed By: #### L MACU ####[place] [address] Hemoglobin,Urine Negative Normal Negative [facility] Comment on above: Performed By: #### L MACU ####[place] [address] Ketone Urine Negative Normal Negative [facility] Comment on above: Performed By: #### L MACU ####[place] [address] Leukocytes Esterase Negative Normal Negative [facility] Comment on above: Performed By: #### L MACU ####[place] [address] Nitrites Urine Negative Normal Negative [facility] Comment on above: Performed By: #### L MACU ####[facility] [place], [place] [address] pH Test strip (U) 6.5 [pH] Normal 5.0-8.0 [facility] Comment on above: Performed By: #### L MACU ####[facility] [place], [place] [address] Protein Urine Negative Normal Negative [facility] Comment on above: Performed By: #### L MACU ####[facility] [place], [place] [address] Specific [place], Ur <=1.005 Normal 1.005-1.030 [facility] Comment on above: Performed By: #### L MACU ####[facility] [place], [place] [address] Urobilinogen,Ur 0.2 EU/dL Normal 0.0-1.0 [facility] Comment on above: Performed By: #### L MACU ####[address] [address] US PELVIS NON-OB COMPLETEon 01-23-2018 US PELVIS NON-OB COMPLETE Performed at [facility] APPROVED BY: Adry Cabrera MD EXAMINATION: TRANSVAGINAL AND LIMITED TRANSABDOMINAL PELVIC ULTRASOUND [...] Small uterine fibroids and small uterine cyst. Normal [facility] US TRANSVAGINALon 01-23-2018 US TRANSVAGINAL Performed at [facility] APPROVED BY: Adry Cabrera MD EXAMINATION: TRANSVAGINAL AND LIMITED TRANSABDOMINAL PELVIC ULTRASOUND [...] Small uterine fibroids and small uterine cyst. Normal [facility] Vital Signs Date Time Vital Sign Value Performing Clinician Halina lyles 11-28-2024 11:12-0400 Body mass index (BMI) [Ratio] 20.73 kg/m2 Sam Khan APRN.CNP Work Phone: [facility] 11-28-2024 11:12-040 Body weight 56.5 kg Sam Khan APRN.CNP Work Phone: [facility] 11-28-2024 11:12-040 Diastolic blood pressure 74 mm[Hg] Sam Khan APRN.CNP Work Phone: [facility] 11-28-2024 11:12-0400 Heart rate 117 /min Sam Khan APRN.CNP Work Phone: [facility] 11-28-2024 11:12-0400 SaO2% (BldA) [Mass fraction] 98 % Sam Erin TREE DRILLER.DISABILITY MANAGER Work Phone: [facility] 11-28-2024 11:12-0400 Systolic blood pressure 110 mm[Hg] Sam Erin TREE DRILLER.DISABILITY MANAGER Work Phone: [facility] 11-22-2024 09:22-0400 Body mass index (BMI) [Ratio] 21.06 kg/m2 Karen Gaspar TREE DRILLER.MEDICAL CODING TECHNICIAN Work Phone: [facility] 11-22-2024 09:22-0400 Body weight 57.4 kg Karen Gaspar TREE DRILLER.MEDICAL CODING TECHNICIAN Work Phone: [facility] 11-22-2024 09:22-0400 Diastolic blood pressure 73 mm[Hg] Karen Gaspar TREE DRILLER.MEDICAL CODING TECHNICIAN Work Phone: [facility] 11-22-2024 09:22-0400 Heart rate 92 /min Karen Gaspar TREE DRILLER.MEDICAL CODING TECHNICIAN Work Phone: [facility] 11-22-2024 09:22-0400 Respiratory rate 16 /min Karen Gaspar TREE DRILLER.MEDICAL CODING TECHNICIAN Work Phone: [facility] 11-22-2024 09:22-0400 Systolic blood pressure 104 mm[Hg] Karen Gaspar TREE DRILLER.MEDICAL CODING TECHNICIAN Work Phone: [facility] 11-02-2024 09:50-0400 Body mass index (BMI) [Ratio] 21.31 kg/m2 Sam Erin TREE DRILLER.DISABILITY MANAGER Work Phone: [facility] 11-02-2024 09:50-0400 Body weight 58.1 kg Sam Erin TREE DRILLER.DISABILITY MANAGER Work Phone: [facility] 11-02-2024 09:50-0400 Diastolic blood pressure 79 mm[Hg] Sam Erin TREE DRILLER.DISABILITY MANAGER Work Phone: [facility] 11-02-2024 09:50-0400 Heart rate 102 /min Sam Erin TREE DRILLER.DISABILITY MANAGER Work Phone: [facility] 11-02-2024 09:50-0400 SaO2% (BldA) [Mass fraction] 97 % Sma Erin TREE DRILLER.DISABILITY MANAGER Work Phone: [facility] 11-02-2024 09:50-0400 Systolic blood pressure 112 mm[Hg] Sam Erin TREE DRILLER.DISABILITY MANAGER Work Phone: [facility] 09-28-2024 09:05-0400 Body height 165.1 cm Pacc 1 Work Phone: [facility] 09-28-2024 09:05-0400 Body mass index (BMI) [Ratio] 21.13 kg/m2 Pacc 1 Work Phone: [facility] 09-28-2024 09:05-0400 Body temperature 97.11 [degF] Pacc 1 Work Phone: [facility] 09-28-2024 09:05-0400 Body weight 57.61 kg Pacc 1 Work Phone: [facility] 09-28-2024 09:05-0400 Diastolic blood pressure 78 mm[Hg] Pacc 1 Work Phone: [facility] 09-28-2024 09:05-0400 Heart rate 85 /min Pacc 1 Work Phone: [facility] 09-28-2024 09:05-0400 Respiratory rate 14 /min Pacc 1 Work Phone: [facility] 09-28-2024 09:05-0400 SaO2% (BldA) [Mass fraction] 98 % Pacc 1 Work Phone: [facility] 09-28-2024 09:05-0400 Systolic blood pressure 102 mm[Hg] Pacc 1 Work Phone: [facility] 09-21-2024 08:53-0400 Body mass index (BMI) [Ratio] 20.1 kg/m2 Sam Erin TREE DRILLER.DISABILITY MANAGER Work Phone: [facility] 09-21-2024 08:53-0400 Body weight 56.5 kg Sam Erin TREE DRILLER.DISABILITY MANAGER Work Phone: [facility] 09-21-2024 08:53-0400 Diastolic blood pressure 70 mm[Hg] Sam Erin TREE DRILLER.DISABILITY MANAGER Work Phone: [facility] 09-21-2024 08:53-0400 Heart rate 98 /min Sam Erin TREE DRILLER.DISABILITY MANAGER Work Phone: [facility] 09-21-2024 08:53-0400 SaO2% (BldA) [Mass fraction] 98 % Sam Erin TREE DRILLER.DISABILITY MANAGER Work Phone: [facility] 09-21-2024 08:53-0400 Systolic blood pressure 110 mm[Hg] Sam Erin TREE DRILLER.DISABILITY MANAGER Work Phone: [facility] 07-31-2024 10:37-0500 Body mass index (BMI) [Ratio] 19.93 kg/m2 Maile Norman MD Work Phone: [facility] 07-31-2024 10:37-0500 Body weight 56 kg Maile Norman MD Work Phone: [facility] 07-31-2024 10:37-0500 Diastolic blood pressure 76 mm[Hg] Maile Norman MD Work Phone: [facility] 07-31-2024 10:37-0500 Heart rate 88 /min Maile Norman MD Work Phone: [facility] 07-31-2024 10:37-0500 SaO2% (BldA) [Mass fraction] 98 % Maile Norman MD Work Phone: [facility] 07-31-2024 10:37-0500 Systolic blood pressure 126 mm[Hg] Maile Norman MD Work Phone: [facility] 07-13-2024 10:39-0500 Body mass index (BMI) [Ratio] 21.35 kg/m2 Karen Gaspar TREE DRILLER.MEDICAL CODING TECHNICIAN Work Phone: [facility] 07-13-2024 10:39-0500 Body weight 60 kg Karen Gaspar TREE DRILLER.MEDICAL CODING TECHNICIAN Work Phone: [facility] 07-13-2024 10:39-0500 Diastolic blood pressure 85 mm[Hg] Karen Gaspar TREE DRILLER.MEDICAL CODING TECHNICIAN Work Phone: [facility] 07-13-2024 10:39-0500 Heart rate 84 /min Karen Gaspar TREE DRILLER.MEDICAL CODING TECHNICIAN Work Phone: [facility] 07-13-2024 10:39-0500 Respiratory rate 16 /min Karen Gaspar TREE DRILLER.MEDICAL CODING TECHNICIAN Work Phone: [facility] 07-13-2024 10:39-0500 Systolic blood pressure 122 mm[Hg] Karen Gaspar TREE DRILLER.MEDICAL CODING TECHNICIAN Work Phone: [facility] 07-11-2024 09:37-0500 Body height 167.6 cm Maile Norman MD Work Phone: [facility] 07-11-2024 09:37-0500 Body mass index (BMI) [Ratio] 20.32 kg/m2 Maile Norman MD Work Phone: [facility] 07-11-2024 09:37-0500 Body weight 57.1 kg Maile Norman MD Work Phone: [facility] 07-11-2024 09:37-0500 Diastolic blood pressure 68 mm[Hg] Maile Norman MD Work Phone: [facility] 07-11-2024 09:37-0500 Heart rate 90 /min Maile Norman MD Work Phone: [facility] 07-11-2024 09:37-0500 SaO2% (BldA) [Mass fraction] 98 % Maile Norman MD Work Phone: [facility] 07-11-2024 09:37-0500 Systolic blood pressure 90 mm[Hg] Maile Norman MD Work Phone: [facility] 07-09-2024 07:08-0500 Body height 165.1 cm Cecile Herndon TREE DRILLER.DISABILITY MANAGER Work Phone: [facility] 07-09-2024 07:08-0500 Body mass index (BMI) [Ratio] 20.97 kg/m2 Cecile Harshad TREE DRILLER.DISABILITY MANAGER Work Phone: [facility] 07-09-2024 07:08-0500 Body weight 57.15 kg Cecile [place] TREE DRILLER.DISABILITY MANAGER Work Phone: [facility] 07-09-2024 07:08-0500 Diastolic blood pressure 62 mm[Hg] Cecile Harshad TREE DRILLER.DISABILITY MANAGER Work Phone: [facility] 07-09-2024 07:08-0500 Systolic blood pressure 110 mm[Hg] Cecile [place] TREE DRILLER.DISABILITY MANAGER Work Phone: [facility] 05-23-2024 07:28-0500 Body mass index (BMI) [Ratio] 20.47 kg/m2 Galo Pendlebury TREE DRILLER.DISABILITY MANAGER Work Phone: [facility] 05-23-2024 07:28-0500 Body temperature 97.59 [degF] Galo Pendlebury TREE DRILLER.DISABILITY MANAGER Work Phone: [facility] 05-23-2024 07:28-0500 Body weight 55.8 kg [facility] TREE DRILLER.DISABILITY MANAGER Work Phone: [facility] 05-23-2024 07:28-0500 Diastolic blood pressure 82 mm[Hg] Galo Pendlebury TREE DRILLER.DISABILITY MANAGER Work Phone: [facility] 05-23-2024 07:28-0500 Heart rate 96 /min Galo Viniciuslestefan TREE DRILLER.DISABILITY MANAGER Work Phone: [facility] 05-23-2024 07:28-0500 Respiratory rate 18 /min Galo Colvinlestefan TREE DRILLER.DISABILITY MANAGER Work Phone: [facility] 05-23-2024 07:28-0500 SaO2% (BldA) [Mass fraction] 96 % Galo Pendlestefan TREE DRILLER.DISABILITY MANAGER Work Phone: [facility] 05-23-2024 07:28-0500 Systolic blood pressure 122 mm[Hg] Galo Bernal TREE DRILLER.DISABILITY MANAGER Work Phone: [facility] 05-15-2024 12:59-0500 Body mass index (BMI) [Ratio] 20.58 kg/m2 Anny Cuong TREE DRILLER.DISABILITY MANAGER Work Phone: [facility] 05-15-2024 12:59-0500 Body temperature 98.2 [degF] Anny Cuong TREE DRILLER.DISABILITY MANAGER Work Phone: [facility] 05-15-2024 12:59-0500 Body weight 56.1 kg Anny Cuong TREE DRILLER.DISABILITY MANAGER Work Phone: [facility] 05-15-2024 12:59-0500 Diastolic blood pressure 84 mm[Hg] Anny Cuong TREE DRILLER.DISABILITY MANAGER Work Phone: [facility] 05-15-2024 12:59-0500 Heart rate 88 /min Anny Cuong TREE DRILLER.DISABILITY MANAGER Work Phone: [facility] 05-15-2024 12:59-0500 Respiratory rate 18 /min Anny Cuong TREE DRILLER.DISABILITY MANAGER Work Phone: [facility] 05-15-2024 12:59-0500 Systolic blood pressure 122 mm[Hg] Anny Cuong TREE DRILLER.DISABILITY MANAGER Work Phone: [facility] 05-11-2024 08:43-0500 Body mass index (BMI) [Ratio] 20.4 kg/m2 Yodit Saxena TREE DRILLER.DISABILITY MANAGER Work Phone: [facility] 05-11-2024 08:43-0500 Body temperature 97.59 [degF] Yodit Saxena TREE DRILLER.DISABILITY MANAGER Work Phone: [facility] 05-11-2024 08:43-0500 Body weight 55.6 kg Yodit Saxena TREE DRILLER.DISABILITY MANAGER Work Phone: [facility] 05-11-2024 08:43-0500 Diastolic blood pressure 88 mm[Hg] Yodit Saxena TREE DRILLER.DISABILITY MANAGER Work Phone: [facility] 05-11-2024 08:43-0500 Heart rate 104 /min Yodit Saxena TREE DRILLER.DISABILITY MANAGER Work Phone: [facility] 05-11-2024 08:43-0500 Respiratory rate 20 /min Yodit Saxena TREE DRILLER.DISABILITY MANAGER Work Phone: [facility] 05-11-2024 08:43-0500 SaO2% (BldA) [Mass fraction] 98 % Yodit Saxena TREE DRILLER.DISABILITY MANAGER Work Phone: [facility] 05-11-2024 08:43-0500 Systolic blood pressure 120 mm[Hg] Yodit Saxena TREE DRILLER.DISABILITY MANAGER Work Phone: [facility] 05-10-2024 12:02-0500 Body mass index (BMI) [Ratio] 20.14 kg/m2 Karen Gaspar TREE DRILLER.MEDICAL CODING TECHNICIAN Work Phone: [facility] 05-10-2024 12:02-0500 Body weight 54.9 kg Karen Gaspar TREE DRILLER.MEDICAL CODING TECHNICIAN Work Phone: [facility] 05-10-2024 12:02-0500 Diastolic blood pressure 73 mm[Hg] Karen Gaspar TREE DRILLER.MEDICAL CODING TECHNICIAN Work Phone: [facility] 05-10-2024 12:02-0500 Heart rate 108 /min Karen Gaspar TREE DRILLER.MEDICAL CODING TECHNICIAN Work Phone: [facility] 05-10-2024 12:02-0500 Respiratory rate 16 /min Karen Gaspar TREE DRILLER.MEDICAL CODING TECHNICIAN Work Phone: [facility] 05-10-2024 12:02-0500 Systolic blood pressure 125 mm[Hg] Karen Gaspar TREE DRILLER.MEDICAL CODING TECHNICIAN Work Phone: [facility] 04-29-2024 20:50-0500 Body temperature 96.98 [degF] JUAN MIGUEL MANLEY MD [facility] 04-29-2024 20:50-0500 Body weight 56.4 kg JUAN MIGUEL MANLEY MD [facility] 04-29-2024 20:50-0500 Diastolic Blood Pressure Non-Invasive 85 mm[Hg] JUAN MIGUEL MANLEY MD [facility] 04-29-2024 20:50-0500 Heart rate 80 /min JUAN MIGUEL MANLEY MD [facility] 04-29-2024 20:50-0500 Respiratory rate 16 /min JUAN MIGUEL MANLEY MD [facility] 04-29-2024 20:50-0500 Systolic Blood Pressure Non-Invasive 126 mm[Hg] JUAN MIGUEL MANLEY MD [facility] 04-25-2024 13:04-0400 Body mass index (BMI) [Ratio] 20.58 kg/m2 Sam Erin TREE DRILLER.DISABILITY MANAGER Work Phone: [facility] 04-25-2024 13:04-0400 Body weight 56.1 kg Sam Erin TREE DRILLER.DISABILITY MANAGER Work Phone: [facility] 04-25-2024 13:04-0400 Diastolic blood pressure 88 mm[Hg] Sam Erin TREE DRILLER.DISABILITY MANAGER Work Phone: [facility] 04-25-2024 13:04-0400 Heart rate 87 /min Sam Erin TREE DRILLER.DISABILITY MANAGER Work Phone: [facility] 04-25-2024 13:04-0400 Respiratory rate 16 /min Sam Erin TREE DRILLER.DISABILITY MANAGER Work Phone: [facility] 04-25-2024 13:04-0400 SaO2% (BldA) [Mass fraction] 99 % Asm Erin TREE DRILLER.DISABILITY MANAGER Work Phone: [facility] 04-25-2024 13:04-0400 Systolic blood pressure 144 mm[Hg] Sam Erin TREE DRILLER.DISABILITY MANAGER Work Phone: [facility] 04-13-2024 12:39-0400 Body mass index (BMI) [Ratio] 20.18 kg/m2 Pennie Praisler-Wood TREE DRILLER.DISABILITY MANAGER Work Phone: [facility] 04-13-2024 12:39-0400 Body temperature 97 [degF] Pennie Praisler-Wood TREE DRILLER.DISABILITY MANAGER Work Phone: [facility] 04-13-2024 12:39-0400 Body weight 55 kg Pennie Praisler-Wood TREE DRILLER.DISABILITY MANAGER Work Phone: [facility] 04-13-2024 12:39-0400 Diastolic blood pressure 78 mm[Hg] Pennie Praisler-Wood TREE DRILLER.DISABILITY MANAGER Work Phone: [facility] 04-13-2024 12:39-0400 Heart rate 78 /min Pennie Praisler-Wood TREE DRILLER.DISABILITY MANAGER Work Phone: [facility] 04-13-2024 12:39-0400 Respiratory rate 16 /min Pennie Praisler-Wood TREE DRILLER.DISABILITY MANAGER Work Phone: [facility] 04-13-2024 12:39-0400 SaO2% (BldA) [Mass fraction] 100 % Pennie Praisler-Wood TREE DRILLER.DISABILITY MANAGER Work Phone: [facility] 04-13-2024 12:39-0400 Systolic blood pressure 112 mm[Hg] Pennie Praisler-Wood TREE DRILLER.DISABILITY MANAGER Work Phone: [facility] 03-28-2024 15:49-0400 Body mass index (BMI) [Ratio] 20.84 kg/m2 Maile Norman MD Work Phone: [facility] 03-28-2024 15:49-0400 Body temperature 97.3 [degF] Maile Norman MD Work Phone: [facility] 03-28-2024 15:49-0400 Body weight 56.8 kg Maile Norman MD Work Phone: [facility] 03-28-2024 15:49-0400 Diastolic blood pressure 87 mm[Hg] Maile Norman MD Work Phone: [facility] 03-28-2024 15:49-0400 Heart rate 80 /min Maile Norman MD Work Phone: [facility] 03-28-2024 15:49-0400 Respiratory rate 16 /min Maile Norman MD Work Phone: [facility] 03-28-2024 15:49-0400 SaO2% (BldA) [Mass fraction] 100 % Maile Norman MD Work Phone: [facility] 03-28-2024 15:49-0400 Systolic blood pressure 133 mm[Hg] Maile Norman MD Work Phone: [facility] 02-28-2024 08:35-0400 Body mass index (BMI) [Ratio] 20.21 kg/m2 Sam Erin TREE DRILLER.DISABILITY MANAGER Work Phone: [facility] 02-28-2024 08:35-0400 Body temperature 97 [degF] Sam Erin TREE DRILLER.DISABILITY MANAGER Work Phone: [facility] 02-28-2024 08:35-0400 Body weight 55.1 kg Sam Erin TREE DRILLER.DISABILITY MANAGER Work Phone: [facility] 02-28-2024 08:35-0400 Diastolic blood pressure 80 mm[Hg] Sam Erin TREE DRILLER.DISABILITY MANAGER Work Phone: [facility] 02-28-2024 08:35-0400 Heart rate 78 /min Sam Erin TREE DRILLER.DISABILITY MANAGER Work Phone: [facility] 02-28-2024 08:35-0400 Respiratory rate 20 /min Sam Erin TREE DRILLER.DISABILITY MANAGER Work Phone: [facility] 02-28-2024 08:35-0400 SaO2% (BldA) [Mass fraction] 97 % Sam Erin TREE DRILLER.DISABILITY MANAGER Work Phone: [facility] 02-28-2024 08:35-0400 Systolic blood pressure 118 mm[Hg] Sam Khan APRN.DISABILITY MANAGER Work Phone: [facility] 02-16-2024 18:49-0400 Body mass index (BMI) [Ratio] 20.76 kg/m2 Krislyn Aberegg PA Work Phone: [facility] 02-16-2024 18:49-0400 Body temperature 98.2 [degF] Krislyn Aberegg PA Work Phone: [facility] 02-16-2024 18:49-0400 Body weight 56.6 kg Krislyn Aberegg PA Work Phone: [facility] 02-16-2024 18:49-0400 Diastolic blood pressure 73 mm[Hg] Krislyn Aberegg PA Work Phone: [facility] 02-16-2024 18:49-0400 Heart rate 85 /min Krislyn Aberegg PA Work Phone: [facility] 02-16-2024 18:49-0400 Respiratory rate 18 /min Krislyn Aberegg PA Work Phone: [facility] 02-16-2024 18:49-0400 SaO2% (BldA) [Mass fraction] 100 % Krislyn Aberegg PA Work Phone: [facility] 02-16-2024 18:49-0400 Systolic blood pressure 113 mm[Hg] Krislyn Aberegg PA Work Phone: [facility] 02-10-2024 17:05-0400 Diastolic Blood Pressure Non-Invasive 87 mm[Hg] JUAN MIGUEL MANLEY MD [facility] 02-10-2024 17:05-0400 Heart rate 95 /min JUAN MIGUEL MANLEY MD [facility] 02-10-2024 17:05-0400 Respiratory rate 16 /min JUAN MIGUEL MANLEY MD [facility] 02-10-2024 17:05-0400 Systolic Blood Pressure Non-Invasive 123 mm[Hg] JUAN MIGUEL MANLEY MD [facility] 02-10-2024 15:40-0400 Body temperature 97.16 [degF] JUAN MIGUEL MANLEY MD [facility] 02-10-2024 15:40-0400 Body weight 54.3 kg JUAN MIGUEL MANLEY MD [facility] 02-10-2024 15:40-0400 Diastolic Blood Pressure Non-Invasive 60 mm[Hg] JUAN MIGUEL MANLEY MD [facility] 02-10-2024 15:40-0400 Heart rate 111 /min JUAN MIGUEL MANLEY MD [facility] 02-10-2024 15:40-0400 Respiratory rate 18 /min JUAN MIGUEL MANLEY MD [facility] 02-10-2024 15:40-0400 Systolic Blood Pressure Non-Invasive 98 mm[Hg] JUAN MIGUEL MANLEY MD [facility] 02-07-2024 15:03-0400 Body height 165.1 cm Louis Valencia MD Work Phone: [facility] 02-07-2024 15:03-0400 Body mass index (BMI) [Ratio] 20.8 kg/m2 Louis Valencia MD Work Phone: [facility] 02-07-2024 15:03-0400 Body weight 56.7 kg Louis Valencia MD Work Phone: [facility] 02-07-2024 15:03-0400 Respiratory rate 16 /min Louis Valencia MD Work Phone: [facility] 01-25-2024 14:44-0400 Body mass index (BMI) [Ratio] 20.8 kg/m2 Sam Erin TREE DRILLER.DISABILITY MANAGER Work Phone: [facility] 01-25-2024 14:44-0400 Body weight 56.7 kg Sam Erin TREE DRILLER.DISABILITY MANAGER Work Phone: [facility] 01-25-2024 14:44-0400 Diastolic blood pressure 66 mm[Hg] Sam Erin TREE DRILLER.DISABILITY MANAGER Work Phone: [facility] 01-25-2024 14:44-0400 Heart rate 96 /min Sam Erin TREE DRILLER.DISABILITY MANAGER Work Phone: [facility] 01-25-2024 14:44-0400 Respiratory rate 16 /min Sam Erin TREE DRILLER.DISABILITY MANAGER Work Phone: [facility] 01-25-2024 14:44-0400 Systolic blood pressure 102 mm[Hg] Sam Erin TREE DRILLER.DISABILITY MANAGER Work Phone: [facility] 01-11-2024 13:33-0400 Body mass index (BMI) [Ratio] 20.7 kg/m2 Sam Erin TREE DRILLER.DISABILITY MANAGER Work Phone: [facility] 01-11-2024 13:33-0400 Body weight 56.43 kg Sam Erin TREE DRILLER.DISABILITY MANAGER Work Phone: [facility] 01-11-2024 13:33-0400 Diastolic blood pressure 62 mm[Hg] Sam Erin TREE DRILLER.DISABILITY MANAGER Work Phone: [facility] 01-11-2024 13:33-0400 Heart rate 86 /min Sam Erin TREE DRILLER.DISABILITY MANAGER Work Phone: [facility] 01-11-2024 13:33-0400 Respiratory rate 18 /min Sam Erin TREE DRILLER.DISABILITY MANAGER Work Phone: [facility] 01-11-2024 13:33-0400 SaO2% (BldA) [Mass fraction] 94 % Sam Erin TREE DRILLER.DISABILITY MANAGER Work Phone: [facility] 01-11-2024 13:33-0400 Systolic blood pressure 96 mm[Hg] Sam Erin TREE DRILLER.DISABILITY MANAGER Work Phone: [facility] 12-20-2023 07:50-0400 Body mass index (BMI) [Ratio] 19.8 kg/m2 Sam Erin TREE DRILLER.DISABILITY MANAGER Work Phone: [facility] 12-20-2023 07:50-0400 Body weight 53.98 kg Sam Erin TREE DRILLER.DISABILITY MANAGER Work Phone: [facility] 12-20-2023 07:50-0400 Diastolic blood pressure 80 mm[Hg] Sam Erin TREE DRILLER.DISABILITY MANAGER Work Phone: [facility] 12-20-2023 07:50-0400 Heart rate 114 /min Sam Erin TREE DRILLER.DISABILITY MANAGER Work Phone: [facility] 12-20-2023 07:50-0400 SaO2% (BldA) [Mass fraction] 97 % Sam Erin TREE DRILLER.DISABILITY MANAGER Work Phone: [facility] 12-20-2023 07:50-0400 Systolic blood pressure 130 mm[Hg] Sam Erin TREE DRILLER.DISABILITY MANAGER Work Phone: [facility] 11-11-2023 10:06-0400 Body mass index (BMI) [Ratio] 20.47 kg/m2 Asm Erin TREE DRILLER.DISABILITY MANAGER Work Phone: [facility] 11-11-2023 10:06-0400 Body weight 55.79 kg Sam Erin TREE DRILLER.DISABILITY MANAGER Work Phone: [facility] 11-11-2023 10:06-0400 Diastolic blood pressure 82 mm[Hg] Sam Erin TREE DRILLER.DISABILITY MANAGER Work Phone: [facility] 11-11-2023 10:06-0400 Heart rate 85 /min Sam Erin TREE DRILLER.DISABILITY MANAGER Work Phone: [facility] 11-11-2023 10:06-0400 SaO2% (BldA) [Mass fraction] 98 % Sam Erin TREE DRILLER.DISABILITY MANAGER Work Phone: [facility] 11-11-2023 10:06-0400 Systolic blood pressure 110 mm[Hg] Sam Erin TREE DRILLER.DISABILITY MANAGER Work Phone: [facility] 10-14-2023 11:26-0400 Body height 165.1 cm Sam Erin TREE DRILLER.DISABILITY MANAGER Work Phone: [facility] 10-14-2023 11:26-0400 Body weight 55.79 kg Sam Erin TREE DRILLER.DISABILITY MANAGER Work Phone: [facility] 10-14-2023 11:26-0400 Diastolic blood pressure 70 mm[Hg] Sam Erin TREE DRILLER.DISABILITY MANAGER Work Phone: [facility] 10-14-2023 11:26-0400 Heart rate 107 /min Sam Erin TREE DRILLER.DISABILITY MANAGER Work Phone: [facility] 10-14-2023 11:26-0400 Respiratory rate 12 /min Sam Erin TREE DRILLER.DISABILITY MANAGER Work Phone: [facility] 10-14-2023 11:26-0400 SaO2% (BldA) [Mass fraction] 97 % Sam Erin TREE DRILLER.DISABILITY MANAGER Work Phone: [facility] 10-14-2023 11:26-0400 Systolic blood pressure 132 mm[Hg] Sam Erin TREE DRILLER.DISABILITY MANAGER Work Phone: [facility] 10-11-2023 10:16-0400 Body height 165.1 cm Louis Valencia MD Work Phone: [facility] 10-11-2023 10:16-0400 Body weight 55.79 kg Louis Valencia MD Work Phone: [facility] 10-11-2023 10:16-0400 Respiratory rate 20 /min Louis Valencia MD Work Phone: [facility] 09-27-2023 13:15-0400 Body temperature 96.3 [degF] Sam Erin TREE DRILLER.DISABILITY MANAGER Work Phone: [facility] 09-27-2023 13:15-0400 Body weight 55.79 kg Sam Erin TREE DRILLER.DISABILITY MANAGER Work Phone: [facility] 09-27-2023 13:15-0400 Diastolic blood pressure 60 mm[Hg] Sam Erin TREE DRILLER.DISABILITY MANAGER Work Phone: [facility] 09-27-2023 13:15-0400 Heart rate 76 /min Sam Erin TREE DRILLER.DISABILITY MANAGER Work Phone: [facility] 09-27-2023 13:15-0400 Respiratory rate 20 /min Sam Erin TREE DRILLER.DISABILITY MANAGER Work Phone: [facility] 09-27-2023 13:15-0400 Systolic blood pressure 114 mm[Hg] Sam Erin TREE DRILLER.DISABILITY MANAGER Work Phone: [facility] 09-26-2023 22:13-0400 Diastolic Blood Pressure Non-Invasive 76 mm[Hg] DR TU DE ANDA MD [facility] 09-26-2023 22:13-0400 Heart rate 63 /min DR TU DE ANDA MD [facility] 09-26-2023 22:13-0400 Respiratory rate 16 /min DR TU DE ANDA MD [facility] 09-26-2023 22:13-0400 Systolic Blood Pressure Non-Invasive 133 mm[Hg] DR TU DE ANDA MD [facility] 09-26-2023 19:34-0400 Body height 175.[address] TU DE ANDA MD [facility] 09-26-2023 19:34-0400 Body temperature 98.42 [degF] DR TU DE ANDA MD [facility] 09-26-2023 19:34-0400 Body weight 56.[address] TU DE ANDA MD [facility] 09-26-2023 19:34-0400 Diastolic Blood Pressure Non-Invasive 68 mm[Hg] DR TU DE ANDA MD [facility] 09-26-2023 19:34-0400 Heart rate 104 /min DR TU DE ANDA MD [facility] 09-26-2023 19:34-0400 Respiratory rate 18 /min DR TU DE ANDA MD [facility] 09-26-2023 19:34-0400 Systolic Blood Pressure Non-Invasive 143 mm[Hg] DR TU DE ANDA MD [facility] 09-13-2023 13:31-0400 Body height 165.1 cm Louis Valencia MD Work Phone: [facility] 09-13-2023 13:31-0400 Body weight 57.15 kg Louis Valencia MD Work Phone: [facility] 09-13-2023 13:31-0400 Respiratory rate 18 /min Louis Valencia MD Work Phone: [facility] 09-09-2023 15:05-0400 Body weight 57.15 kg Sam Erin TREE DRILLER.DISABILITY MANAGER Work Phone: [facility] 09-09-2023 15:05-0400 Diastolic blood pressure 78 mm[Hg] Sam Erin TREE DRILLER.DISABILITY MANAGER Work Phone: [facility] 09-09-2023 15:05-0400 Heart rate 78 /min Sam Erin TREE DRILLER.DISABILITY MANAGER Work Phone: [facility] 09-09-2023 15:05-0400 Respiratory rate 16 /min Sam Erin TREE DRILLER.DISABILITY MANAGER Work Phone: [facility] 09-09-2023 15:05-0400 Systolic blood pressure 124 mm[Hg] Sam Erin TREE DRILLER.DISABILITY MANAGER Work Phone: [facility] 08-18-2023 09:17-0500 Body height 165.1 cm Pst 1 [facility] 08-18-2023 09:17-0500 Body temperature 98.6 [degF] Pst 1 [facility] 08-18-2023 09:17-0500 Body weight 55.34 kg Pst 1 [facility] 08-18-2023 09:17-0500 Diastolic blood pressure 60 mm[Hg] Pst 1 [facility] 08-18-2023 09:17-0500 Heart rate 92 /min Pst 1 [facility] 08-18-2023 09:17-0500 Respiratory rate 16 /min Pst 1 [facility] 08-18-2023 09:17-0500 SaO2% (BldA) [Mass fraction] 98 % Pst 1 [facility] 08-18-2023 09:17-0500 Systolic blood pressure 124 mm[Hg] Pst 1 [facility] 08-11-2023 08:06-0500 Body temperature 99.5 [degF] Pennie Prafanny-Maximilian TREE DRILLER.DISABILITY MANAGER Work Phone: [facility] 08-11-2023 08:06-0500 Body weight 56.25 kg Pennie Praisler-Wood TREE DRILLER.DISABILITY MANAGER Work Phone: [facility] 08-11-2023 08:06-0500 Diastolic blood pressure 83 mm[Hg] Pennie Praisler-Wood TREE DRILLER.DISABILITY MANAGER Work Phone: [facility] 08-11-2023 08:06-0500 Heart rate 107 /min Pennie Praisler-Wood TREE DRILLER.DISABILITY MANAGER Work Phone: [facility] 08-11-2023 08:06-0500 Respiratory rate 22 /min Pennie Praisler-Wood TREE DRILLER.DISABILITY MANAGER Work Phone: [facility] 08-11-2023 08:06-0500 SaO2% (BldA) [Mass fraction] 97 % Pennie Praisler-Wood TREE DRILLER.DISABILITY MANAGER Work Phone: [facility] 08-11-2023 08:06-0500 Systolic blood pressure 127 mm[Hg] Pennie Clemente TREE DRILLER.DISABILITY MANAGER Work Phone: [facility] 08-09-2023 12:57-0500 Body height 165.1 cm Louis Valencia MD Work Phone: [facility] 08-09-2023 12:57-0500 Body weight 57.15 kg Louis Valencia MD Work Phone: [facility] 08-09-2023 12:57-0500 Respiratory rate 16 /min Louis Valencia MD Work Phone: [facility] 08-05-2023 13:35-0500 Body height 165.1 cm Sam Erin TREE DRILLER.DISABILITY MANAGER Work Phone: [facility] 08-05-2023 13:35-0500 Body weight 57.38 kg Sam Erin TREE DRILLER.DISABILITY MANAGER Work Phone: [facility] 08-05-2023 13:35-0500 Diastolic blood pressure 72 mm[Hg] Sam Erin TREE DRILLER.DISABILITY MANAGER Work Phone: [facility] 08-05-2023 13:35-0500 Respiratory rate 16 /min Sam Erin TREE DRILLER.DISABILITY MANAGER Work Phone: [facility] 08-05-2023 13:35-0500 Systolic blood pressure 118 mm[Hg] Sam Erin TREE DRILLER.DISABILITY MANAGER Work Phone: [facility] 08-01-2023 08:19-0500 Body temperature 97.5 [degF] Krislyn Aberegg PA Work Phone: [facility] 08-01-2023 08:19-0500 Body weight 59.88 kg Krislyn Aberegg PA Work Phone: [facility] 08-01-2023 08:19-0500 Diastolic blood pressure 86 mm[Hg] Krislyn Aberegg PA Work Phone: [facility] 08-01-2023 08:19-0500 Heart rate 69 /min Krislyn Aberegg PA Work Phone: [facility] 08-01-2023 08:19-0500 Respiratory rate 20 /min Krislyn Aberegg PA Work Phone: [facility] 08-01-2023 08:19-0500 SaO2% (BldA) [Mass fraction] 99 % Krislyn Aberegg PA Work Phone: [facility] 08-01-2023 08:19-0500 Systolic blood pressure 133 mm[Hg] Krislyn Aberegg PA Work Phone: [facility] 06-16-2023 09:19-0500 Body height 165.1 cm Antonio Rios MD Work Phone: [facility] 06-16-2023 09:19-0500 Body weight 56.7 kg Antonio Rios MD Work Phone: [facility] 05-12-2023 09:22-0500 Heart rate 68 /min Charles Prebish TREE DRILLER.DISABILITY MANAGER Work Phone: [facility] 05-12-2023 09:22-0500 Respiratory rate 16 /min Charles Prebish TREE DRILLER.DISABILITY MANAGER Work Phone: [facility] 05-12-2023 09:22-0500 SaO2% (BldA) [Mass fraction] 100 % Charles Prebish TREE DRILLER.DISABILITY MANAGER Work Phone: [facility] 04-30-2023 09:39-0400 Body weight 57.61 kg Rick Queen MD Work Phone: [facility] 04-30-2023 09:39-0400 Diastolic blood pressure 85 mm[Hg] Rick Queen MD Work Phone: [facility] 04-30-2023 09:39-0400 Heart rate 147 /min Rick Queen MD Work Phone: [facility] 04-30-2023 09:39-0400 Respiratory rate 18 /min Rick Queen MD Work Phone: [facility] 04-30-2023 09:39-0400 Systolic blood pressure 124 mm[Hg] Rick Queen MD Work Phone: [facility] 04-30-2023 09:00-0400 Body temperature 97.81 [degF] Anny Older TREE DRILLER.DISABILITY MANAGER Work Phone: [facility] 04-30-2023 09:00-0400 Diastolic blood pressure 84 mm[Hg] Anny Older TREE DRILLER.DISABILITY MANAGER Work Phone: [facility] 04-30-2023 09:00-0400 Heart rate 149 /min Anny Older TREE DRILLER.DISABILITY MANAGER Work Phone: [facility] 04-30-2023 09:00-0400 Respiratory rate 20 /min Anny Older TREE DRILLER.DISABILITY MANAGER Work Phone: [facility] 04-30-2023 09:00-0400 SaO2% (BldA) [Mass fraction] 99 % Anny Older TREE DRILLER.DISABILITY MANAGER Work Phone: [facility] 04-30-2023 09:00-0400 Systolic blood pressure 117 mm[Hg] Anny Older TREE DRILLER.DISABILITY MANAGER Work Phone: [facility] 04-25-2023 15:02-0400 Body weight 58.06 kg Sam Erin TREE DRILLER.DISABILITY MANAGER Work Phone: [facility] 04-25-2023 15:02-0400 Diastolic blood pressure 80 mm[Hg] Sam Erin TREE DRILLER.DISABILITY MANAGER Work Phone: [facility] 04-25-2023 15:02-0400 Heart rate 119 /min Sam Erin TREE DRILLER.DISABILITY MANAGER Work Phone: [facility] 04-25-2023 15:02-0400 SaO2% (BldA) [Mass fraction] 98 % Sam Erin TREE DRILLER.DISABILITY MANAGER Work Phone: [facility] 04-25-2023 15:02-0400 Systolic blood pressure 110 mm[Hg] Sam Erin TREE DRILLER.DISABILITY MANAGER Work Phone: [facility] 03-15-2023 09:57-0400 Body height 165.[address] LAVONNE WEAVER MD [facility] 03-15-2023 09:57-0400 Body temperature 98.42 [degF] DR LAVONNE WEAVER MD [facility] 03-15-2023 09:57-0400 Body weight 56.[address] LAVONNE WEAVER MD [facility] 03-15-2023 09:57-0400 Diastolic Blood Pressure Non-Invasive [address] LAVONNE WEAVER MD [facility] 03-15-2023 09:57-0400 Heart rate 117 /min DR LAVONNE WEAVER MD [facility] 03-15-2023 09:57-0400 Respiratory rate 20 /min DR LAVONNE WEAVER MD [facility] 03-15-2023 09:57-0400 Systolic Blood Pressure Non-Invasive [address] LAVONNE WEAVER MD [facility] 02-08-2023 12:04-0400 Body weight 58.06 kg Sam Erin TREE DRILLER.DISABILITY MANAGER Work Phone: [facility] 02-08-2023 12:04-0400 Diastolic blood pressure 80 mm[Hg] Sam Erin TREE DRILLER.DISABILITY MANAGER Work Phone: [facility] 02-08-2023 12:04-0400 Heart rate 103 /min Sam Erin TREE DRILLER.DISABILITY MANAGER Work Phone: [facility] 02-08-2023 12:04-0400 SaO2% (BldA) [Mass fraction] 99 % Sam Erin TREE DRILLER.DISABILITY MANAGER Work Phone: [facility] 02-08-2023 12:04-0400 Systolic blood pressure 102 mm[Hg] Sam Erin TREE DRILLER.DISABILITY MANAGER Work Phone: [facility] 01-25-2023 12:53-0400 Body temperature 98.06 [degF] JUAN MIGUEL MANLEY MD [facility] 01-25-2023 12:53-0400 Diastolic Blood Pressure Non-Invasive 84 1 JUAN MIGUEL MANLEY MD [facility] 01-25-2023 12:53-0400 Heart rate 112 /min JUAN MIGUEL MANLEY MD [facility] 01-25-2023 12:53-0400 Respiratory rate 18 /min JUAN MIGUEL MANLEY MD [facility] 01-25-2023 12:53-0400 Systolic Blood Pressure Non-Invasive 119 1 JUAN MIGUEL MANLEY MD [facility] 01-10-2023 15:22-0400 Body temperature 98.29 [degF] Maile oNrman MD Work Phone: [facility] 01-10-2023 15:22-0400 Body weight 59.88 kg Maile Norman MD Work Phone: [facility] 01-10-2023 15:22-0400 Diastolic blood pressure 68 mm[Hg] Maile Norman MD Work Phone: [facility] 01-10-2023 15:22-0400 Heart rate 109 /min Maile Norman MD Work Phone: [facility] 01-10-2023 15:22-0400 Respiratory rate 18 /min Maile Norman MD Work Phone: [facility] 01-10-2023 15:22-0400 SaO2% (BldA) [Mass fraction] 98 % Maile Norman MD Work Phone: [facility] 01-10-2023 15:22-0400 Systolic blood pressure 132 mm[Hg] Maile Norman MD Work Phone: [facility] 12-01-2022 13:43-0400 Body weight 56.79 kg Gayla Podlogar TREE DRILLER.DISABILITY MANAGER Work Phone: [facility] 12-01-2022 13:43-0400 Diastolic blood pressure 74 mm[Hg] Gayla Podlogar TREE DRILLER.DISABILITY MANAGER Work Phone: [facility] 12-01-2022 13:43-0400 Heart rate 82 /min Gayla Podlogar TREE DRILLER.DISABILITY MANAGER Work Phone: [facility] 12-01-2022 13:43-0400 Respiratory rate 18 /min Gayla Podlogar TREE DRILLER.DISABILITY MANAGER Work Phone: [facility] 12-01-2022 13:43-0400 SaO2% (BldA) [Mass fraction] 99 % Gayla Podlogar TREE DRILLER.DISABILITY MANAGER Work Phone: [facility] 12-01-2022 13:43-0400 Systolic blood pressure 106 mm[Hg] Gayla Podlogar TREE DRILLER.DISABILITY MANAGER Work Phone: [facility] 09-09-2022 10:11-0400 Body temperature 97.59 [degF] Pennie Praisler-Wood TREE DRILLER.DISABILITY MANAGER Work Phone: [facility] 09-09-2022 10:11-0400 Body weight 58.15 kg Pennie Praisler-Wood TREE DRILLER.DISABILITY MANAGER Work Phone: [facility] 09-09-2022 10:11-0400 Diastolic blood pressure 78 mm[Hg] Pennie Praisler-Wood TREE DRILLER.DISABILITY MANAGER Work Phone: [facility] 09-09-2022 10:11-0400 Heart rate 96 /min Pennie Praisler-Wood TREE DRILLER.DISABILITY MANAGER Work Phone: [facility] 09-09-2022 10:11-0400 Respiratory rate 16 /min Pennie Praisler-Wood TREE DRILLER.DISABILITY MANAGER Work Phone: [facility] 09-09-2022 10:11-0400 SaO2% (BldA) [Mass fraction] 98 % Pennie Clemente APRN.DISABILITY MANAGER Work Phone: [facility] 09-09-2022 10:11-0400 Systolic blood pressure 110 mm[Hg] Pennie Clemente TREE DRILLER.DISABILITY MANAGER Work Phone: [facility] 07-18-2022 11:13-0500 Body temperature 97.39 [degF] Kimberly Loya APRN.DISABILITY MANAGER Work Phone: [facility] 07-18-2022 11:13-0500 Body weight 59.88 kg Kimberly Loya APRN.DISABILITY MANAGER Work Phone: [facility] 07-18-2022 11:13-0500 Diastolic blood pressure 70 mm[Hg] Kimberly Loya APRN.DISABILITY MANAGER Work Phone: [facility] 07-18-2022 11:13-0500 Heart rate 82 /min Kimberly Loya APRN.DISABILITY MANAGER Work Phone: [facility] 07-18-2022 11:13-0500 Respiratory rate 16 /min Kimberly Loya APRN.DISABILITY MANAGER Work Phone: [facility] 07-18-2022 11:13-0500 SaO2% (BldA) [Mass fraction] 99 % Kimberly Loya APRN.DISABILITY MANAGER Work Phone: [facility] 07-18-2022 11:13-0500 Systolic blood pressure 122 mm[Hg] Kimberly Loya APRN.DISABILITY MANAGER Work Phone: [facility] 05-25-2022 16:15-0500 Body height 165.1 cm Kuldeep Ellis MD Work Phone: [facility] 05-25-2022 16:15-0500 Body temperature 98.29 [degF] Kuldeep Ellis MD Work Phone: [facility] 05-25-2022 16:15-0500 Body weight 59.88 kg Kuldeep Ellis MD Work Phone: [facility] 05-25-2022 16:15-0500 Diastolic blood pressure 78 mm[Hg] Kuldeep Ellis MD Work Phone: [facility] 05-25-2022 16:15-0500 Heart rate 110 /min Kuldeep Ellis MD Work Phone: [facility] 05-25-2022 16:15-0500 SaO2% (BldA) [Mass fraction] 99 % Kuldeep Ellis MD Work Phone: [facility] 05-25-2022 16:15-0500 Systolic blood pressure 106 mm[Hg] Kuldeep Ellis MD Work Phone: [facility] 05-13-2022 12:36-0500 Body height 165.1 cm Kuldeep Ellis MD Work Phone: [facility] 05-13-2022 12:36-0500 Body temperature 98.01 [degF] Kuldeep Ellis MD Work Phone: [facility] 05-13-2022 12:36-0500 Body weight 57.61 kg Kuldeep Ellis MD Work Phone: [facility] 05-13-2022 12:36-0500 Diastolic blood pressure 70 mm[Hg] Kuldeep Ellis MD Work Phone: [facility] 05-13-2022 12:36-0500 Heart rate 110 /min Kuldeep Ellis MD Work Phone: [facility] 05-13-2022 12:36-0500 SaO2% (BldA) [Mass fraction] 100 % Kuldeep Ellis MD Work Phone: [facility] 05-13-2022 12:36-0500 Systolic blood pressure 112 mm[Hg] Kuldeep Ellis MD Work Phone: [facility] 05-07-2022 11:12-0500 Body height 165.1 cm Karen Gaspar TREE DRILLER.MEDICAL CODING TECHNICIAN Work Phone: [facility] 05-07-2022 11:12-0500 Body weight 56.25 kg Karen Gaspar TREE DRILLER.MEDICAL CODING TECHNICIAN Work Phone: [facility] 05-07-2022 11:12-0500 Diastolic blood pressure 62 mm[Hg] Karen Gaspar TREE DRILLER.MEDICAL CODING TECHNICIAN Work Phone: [facility] 05-07-2022 11:12-0500 Heart rate 99 /min Karen Gaspar TREE DRILLER.MEDICAL CODING TECHNICIAN Work Phone: [facility] 05-07-2022 11:12-0500 Respiratory rate 16 /min Karen Gaspar TREE DRILLER.MEDICAL CODING TECHNICIAN Work Phone: [facility] 05-07-2022 11:12-0500 SaO2% (BldA) [Mass fraction] 97 % Karen Gaspra TREE DRILLER.MEDICAL CODING TECHNICIAN Work Phone: [facility] 05-07-2022 11:12-0500 Systolic blood pressure 98 mm[Hg] Karen Gaspar TREE DRILLER.MEDICAL CODING TECHNICIAN Work Phone: [facility] 03-16-2022 08:14-0400 Body temperature 97.7 [degF] Pennie Praisler-Wood TREE DRILLER.DISABILITY MANAGER Work Phone: [facility] 03-16-2022 08:14-0400 Body weight 57.97 kg Pennie Praisler-Wood TREE DRILLER.DISABILITY MANAGER Work Phone: [facility] 03-16-2022 08:14-0400 Diastolic blood pressure 80 mm[Hg] Pennie Praisler-Wood TREE DRILLER.DISABILITY MANAGER Work Phone: [facility] 03-16-2022 08:14-0400 Heart rate 107 /min Pennie Praisler-Wood TREE DRILLER.DISABILITY MANAGER Work Phone: [facility] 03-16-2022 08:14-0400 Respiratory rate 18 /min Pennie Praisler-Wood TREE DRILLER.DISABILITY MANAGER Work Phone: [facility] 03-16-2022 08:14-0400 SaO2% (BldA) [Mass fraction] 96 % Pennie Praisler-Wood TREE DRILLER.DISABILITY MANAGER Work Phone: [facility] 03-16-2022 08:14-0400 Systolic blood pressure 122 mm[Hg] Pennie Praisler-Wood TREE DRILLER.DISABILITY MANAGER Work Phone: [facility] 01-20-2022 15:19-0400 Body temperature 97.5 [degF] [facility] TREE DRILLER.DISABILITY MANAGER Work Phone: [facility] 01-20-2022 15:19-0400 Body weight 59.97 kg [facility] TREE DRILLER.DISABILITY MANAGER Work Phone: [facility] 01-20-2022 15:19-0400 Diastolic blood pressure 70 mm[Hg] [facility] TREE DRILLER.DISABILITY MANAGER Work Phone: [facility] 01-20-2022 15:19-0400 Heart rate 80 /min [facility] TREE DRILLER.DISABILITY MANAGER Work Phone: [facility] 01-20-2022 15:19-0400 Respiratory rate 16 /min [facility] TREE DRILLER.DISABILITY MANAGER Work Phone: [facility] 01-20-2022 15:19-0400 SaO2% (BldA) [Mass fraction] 97 % [facility] TREE DRILLER.DISABILITY MANAGER Work Phone: [facility] 01-20-2022 15:19-0400 Systolic blood pressure 122 mm[Hg] [facility] TREE DRILLER.DISABILITY MANAGER Work Phone: [facility] 07-18-2021 17:49-0500 Body temperature 98.1 [degF] Boubacar Ferrell MD Work Phone: [facility] 07-18-2021 17:49-0500 Diastolic blood pressure 98 mm[Hg] Boubacar Ferrell MD Work Phone: [facility] 07-18-2021 17:49-0500 Heart rate 75 /min Boubacar Ferrell MD Work Phone: [facility] 07-18-2021 17:49-0500 Respiratory rate 18 /min Boubacar Ferrell MD Work Phone: [facility] 07-18-2021 17:49-0500 SaO2% (BldA) [Mass fraction] 99 % Boubacar Ferrell MD Work Phone: [facility] 07-18-2021 17:49-0500 Systolic blood pressure 114 mm[Hg] Boubacar Ferrell MD Work Phone: [facility] Encounters Encounter Date Encounter Type Care Provider Facility Start: 11-28-2024 End: 11-28-2024 Patient encounter procedure Sam Khan APRN.DISABILITY MANAGER Work Phone: [facility] [place] Comment on above: Traumatic tear of ri ght rotator cuff, unspecified tear extent, sequela (Primary Dx); Tear of right glenoid labrum, sequela; Acute pain of right shoulder; S/P shoulder surgery; Anxiety Start: 11-28-2024 End: 11-28-2024 ambulatory [facility] Facility:[facility] Start: 11-26-2024 End: 11-26-2024 ambulatory Kofi Hare [facility] Comment on above: S/P right rotator cu ff repair (Primary Dx); Right shoulder pain, unspecified chronicity Start: 11-23-2024 End: 11-23-2024 Patient encounter procedure Louis Valencia MD Work Phone: Orthopedics Comment on above: S/P shoulder surgery (Primary Dx) Start: 11-23-2024 End: 11-23-2024 ambulatory [facility] Facility:[facility] Start: 11-22-2024 End: 11-22-2024 Telephone encounter Karen Gaspar APRN.MEDICAL CODING TECHNICIAN Work Phone: [facility]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 to [facility] Sam Khan APRN.DISABILITY MANAGER Work Phone: Internal Medicine [place] Comment on above: Shoulder surgery Start: 08-28-2023 ambulatory Sam Khan APRN.DISABILITY MANAGER Work Phone: [facility] [place] Start: 08-23-2023 Telephone encounter Maile acuna MD Work Phone: Internal [facility] [place] Comment on above: FYI-No Action Needed Start: 08-18-2023 Encounter for other preprocedural examination CHARLES ELLIOTT [facility] Start: 08-18-2023 End: 08-18-2023 Preprocedural examination done Pst 1 [facility] Work Phone: Start: 08-18-2023 End: 08-18-2023 PAT Pst [facility] 1 Pre Surgical Testin g Comment on above: Pre-op exam; Bicipital tendonitis of right shoulder; H/O chronic hepatitis; Tobacco use disorder; Marijuana use; Other migraine without status migrainosus, not intractable; Congestive heart failure, unspecified HF chronicity, unspecified heart failure type (HCC) Start: 08-11-2023 Telephone encounter Pennie Britni Penn APRN.DISABILITY MANAGER Work Phone: [facility] Comment on above: Results Start: 08-11-2023 End: 08-11-2023 Subsequent hospital visit by physician Xr [facility] [place] Work Phone: Radiology Comment on above: Acute cough [R05.1] Start: 08-11-2023 End: 08-11-2023 Patient encounter procedure Pennie Clemente APRN.DISABILITY MANAGER Work Phone: [place] [facility] Comment on above: Acute cough (Primary Dx); Viral bronchitis Start: 08-10-2023 Orders Only Louis Valencia MD Work Phone: [facility] [place] [facility] Comment on above: Bicipital tendinitis of right shoulder (Primary Dx) Start: 08-09-2023 End: 08-09-2023 Patient encounter procedure Louis Valencia MD Work Phone: [facility] [place] [facility] Comment on above: Biceps tendinitis of right upper extremity (Primary Dx) Start: 08-09-2023 End: 08-09-2023 ambulatory MAILE NORMAN Facility:[facility] Start: 08-05-2023 End: 08-05-2023 Patient encounter procedure Sam Khan APRN.DISABILITY MANAGER Work Phone: Internal Medicine [place] Comment on above: Tear of right glenoi d labrum, subsequent encounter (Primary Dx); Chronic right shoulder pain Start: 08-01-2023 End: 08-01-2023 Patient encounter procedure Chris NASH Work Phone: [place] [facility] Comment on above: Flu-like symptoms (P rimary Dx); URI, acute Start: 07-29-2023 Refill Maile escobar MD Work Phone: Internal Medicine [place] Comment on above: Refill Request Start: 06-16-2023 End: 06-16-2023 Patient encounter procedure Antonio Rios MD Work Phone: Orthopaedics Comment on above: Chronic right should er pain; Labral tear of shoulder, degenerative, right Start: 05-25-2023 Refill Maile escobar MD Work Phone: Internal [facility] [place] Comment on above: Refill Request Start: 05-14-2023 ambulatory [facility] Provider Internal M [facility]icine [place] Comment on above: information from Dr Norman Start: 05-14-2023 E-mail encounter fro m caregiver [facility] Provider [facility] [place] Start: 05-13-2023 ambulatory Pcp (Historical) [facility] Start: 05-12-2023 End: 05-12-2023 Emergency department patient visit JUAN MIGUEL MANLEY MD Facility:B Start: 05-12-2023 Telephone encounter Charles shelton TREE DRILLER.DISABILITY MANAGER Work Phone: [facility] Comment on above: Referral Information Refill Request Start: 05-12-2023 End: 05-12-2023 Office outpatient new 45 minutes Charles Premaria ines TREE DRILLER.DISABILITY MANAGER Work Phone: [facility] Comment on above: Chronic right should er pain (Primary Dx); Labral tear of shoulder, degenerative, right Start: 05-12-2023 End: 05-12-2023 ambulatory CHARLES PREMARIA INES Facility:[facility] Start: 05-04-2023 Telephone encounter Rick solo MD Work Phone: Internal Medicine [place] Comment on above: Results Start: 05-02-2023 Telephone encounter Keith Diaz PA-C Work Phone: [facility] Start: 04-30-2023 End: 04-30-2023 Patient encounter procedure Rick Queen MD Work Phone: [facility] [place] Comment on above: Tachycardia (Primary Dx); Encounter for immunization; Need for influenza vaccination; Need for vaccination; Anxiety; Tobacco use disorder; Screening for cervical cancer Dysuria (Primary Dx) Start: 04-25-2023 End: 04-25-2023 Patient encounter procedure Sam Khan APRN.DISABILITY MANAGER Work Phone: [facility] [place] Comment on above: Acute cystitis with hematuria (Primary Dx); Tear of right glenoid labrum, subsequent encounter; Chronic right shoulder pain Start: 04-25-2023 Telephone encounter Maile acuna MD Work Phone: Internal [facility] [place] Comment on above: Medication Problem Start: 04-11-2023 E-mail encounter fro m caregiver [facility] Provider LEYDA ROTH Start: 04-11-2023 Patient encounter procedure [facility] [place] Comment on above: 04/28/2023 ely mcneill Start: 03-30-2023 Telephone encounter Oksana Weldon APRN.DISABILITY MANAGER Work Phone: [place] [facility] Comment on above: Results Start: 03-30-2023 End: 03-30-2023 Subsequent hospital visit by physician Xr [facility] [place] Work Phone: Radiology Comment on above: Fever, unspecified f ever cause [R50.9] Start: 03-18-2023 Refill Maile escobar MD Work Phone: Internal [facility] [place] Comment on above: Refill Request Start: 03-15-2023 End: 03-15-2023 Emergency department patient visit DR LAVONNE WEAVER MD [facility] Start: 03-14-2023 ambulatory Sam Khan APRN.DISABILITY MANAGER Work Phone: [facility] [place] Comment on above: MRI Start: 03-14-2023 E-mail encounter fro m caregiver Sam Khan APRN.DISABILITY MANAGER Work Phone: [facility] [place] Start: 03-11-2023 End: 03-11-2023 Subsequent hospital visit by physician Mri Radio [facility] (I-Stat/1.5t) Work Phone: Radiology Comment on above: Tear of right glenoi d labrum, subsequent encounter [S43.431E] Start: 03-07-2023 Refill Maile escobar MD Work Phone: [facility] [place] Comment on above: Refill Request Start: 03-04-2023 Telephone encounter Sam schulz APRN.DISABILITY MANAGER Work Phone: Internal [facility] [place] Comment on above: Orders Start: 02-15-2023 ambulatory No Pcp TREE DRILLER [employer] [place] Start: 02-09-2023 ambulatory Maile escobar MD Work Phone: [facility] Start: 02-08-2023 End: 02-08-2023 Patient encounter procedure Sam Khan APRN.DISABILITY MANAGER Work Phone: [facility] [place] Comment on above: Tear of right glenoi d labrum, subsequent encounter (Primary Dx); Chronic right shoulder pain Start: 01-25-2023 End: 01-25-2023 Emergency department patient visit JUAN MIGUEL MANLEY MD [facility] Start: 01-10-2023 End: 01-10-2023 Office outpatient visit 25 minutes Maile Norman MD Work Phone: [facility] [place] Comment on above: Panic attacks Start: 01-10-2023 ambulatory Maile escobar MD Work Phone: [facility] [place] Comment on above: Anxiety Start: 12-06-2022 Telephone encounter Gayla mora APRN.DISABILITY MANAGER Work Phone: [facility] [place] Comment on above: Results Start: 12-01-2022 Telephone encounter Maile acuna MD Work Phone: [facility] [place] Comment on above: Appointment Request Start: 12-01-2022 End: 12-01-2022 Subsequent hospital visit by physician Heather [facility] [place] Work Phone: Radiology Comment on above: Coccydynia [M53.3] Start: 12-01-2022 End: 12-01-2022 Patient encounter procedure Gayla Ayala APRN.DISABILITY MANAGER Work Phone: [facility] [place] Comment on above: Coccydynia (Primary Dx) Start: 09-17-2022 Telephone encounter Maile acuna MD Work Phone: [facility] [place] Comment on above: Anxiety Start: 09-09-2022 End: 09-09-2022 Patient encounter procedure Pennie Clemente APRN.DISABILITY MANAGER Work Phone: [facility] Comment on above: Viral URI with cough (Primary Dx) Start: 09-08-2022 Telephone encounter Maile acuna MD Work Phone: [facility] [place] Comment on above: Patient Update Start: 08-03-2022 Telephone encounter Maile acuna MD Work Phone: Internal [facility] [place] Comment on above: Medication Request Start: 07-18-2022 End: 07-18-2022 Patient encounter procedure Kimberly Loya APRN.DISABILITY MANAGER Work Phone: [place] [facility] Comment on above: Sore throat (Primary Dx); URI, acute Start: 05-31-2022 Orders Only Heidi navarro MD Work Phone: [facility] Comment on above: Abnormal finding on radiological examination of breast (Primary Dx) Start: 05-27-2022 Telephone encounter Kuldeep Ellis MD Work Phone: General Surgery Comment on above: Referral Request (US guided breast biopsy) Start: 05-25-2022 End: 05-25-2022 Patient encounter procedure Kuldeep Ellis MD Work Phone: General Surgery Comment on above: Mass of right breast , unspecified quadrant (Primary Dx) Start: 05-13-2022 End: 05-13-2022 Patient encounter procedure Kuldeep Ellis MD Work Phone: General Surgery Comment on above: Mass of right breast , unspecified quadrant Start: 05-12-2022 Telephone encounter Maile acuna MD Work Phone: [facility] [place] Comment on above: Results Start: 05-10-2022 Telephone encounter Maile acuna MD Work Phone: [facility] [place] Comment on above: Appointment Start: 05-07-2022 End: 05-07-2022 Patient encounter procedure Karen Gaspar APRN.MEDICAL CODING TECHNICIAN Work Phone: Internal [facility] [place] Comment on above: Insomnia, unspecifie d type (Primary Dx); Encounter for immunization; Screening for cervical cancer; Breast pain; Mass of lower inner quadrant of right breast; Chronic right shoulder pain; Encounter for well woman exam with routine gynecological exam Start: 04-20-2022 Refill Karen Gaspar APRN.MEDICAL CODING TECHNICIAN Work Phone: [facility] [place] Comment on above: Refill Request Start: 04-12-2022 ambulatory Pcp ([facility]) [facility] Start: 03-16-2022 End: 03-16-2022 Subsequent hospital visit by physician [facility] [place] Work Phone: Radiology Comment on above: Splinter of finger [ S60.459A] Start: 03-16-2022 End: 03-16-2022 Patient encounter procedure Pennie Clemente TREE DRILLER.DISABILITY MANAGER Work Phone: [facility] Comment on above: Splinter of finger ( Primary Dx) Start: 03-05-2022 Refill Maile escobar MD Work Phone: Internal [facility] [place] Comment on above: Refill Request Start: 03-03-2022 ambulatory Maile escobar MD Work Phone: [facility] [place] Start: 01-20-2022 End: 01-20-2022 Patient encounter procedure Galo Bernal TREE DRILLER.DISABILITY MANAGER Work Phone: [place] [facility] Comment on above: Viral illness (Prima ry Dx) Start: 01-05-2022 End: 01-05-2022 Patient encounter procedure Galo Bernal TREE DRILLER.DISABILITY MANAGER Work Phone: [place] [facility] Comment on above: Procedure not billy d out (Primary Dx) Start: 12-18-2021 Telephone encounter Maile acuna MD Work Phone: Internal Medicine [place] Comment on above: ABO Blood Type Start: 07-18-2021 End: 07-18-2021 Emergency department patient visit Boubacar Ferrell MD Work Phone: [facility] Comment on above: Jaw pain (Primary Dx ); History of tooth extraction, unspecified edentulism class Start: 03-09-2021 End: 03-09-2021 Subsequent hospital visit by physician Xr [facility] [place] Work Phone: Radiology Comment on above: Cough [R05] Procedures Date Procedure Procedure Detail Performing Clinician Start: 11-26-2024 History of repair of musculotendinous cuff of shoulder S/P right rotator cuff repair Kofi Gannon PT Start: 08-03-2024 Arthrocentesis aspir&/inj major jt/bursa w/o us Louis Valencia MD Work Phone: Start: 06-15-2024 Mri any jt upper extremity w/o contrast matrl Louis Valencia MD Work Phone: Start: 05-25-2024 Radex hand minimum 3 views Galo butt TREE DRILLER.DISABILITY MANAGER Work Phone: Start: 05-10-2024 Radex forearm 2 views Karen Gaspar TREE DRILLER.MEDICAL CODING TECHNICIAN Work Phone: Start: 03-07-2024 Radiologic exam chest 2 views Sam Khan TREE DRILLER.DISABILITY MANAGER Work Phone: Start: 02-07-2024 Arthrocentesis aspir&/inj major jt/bursa w/o us Louis Valencia MD Work Phone: Start: 08-11-2023 Radiologic exam chest 2 views Pennie Clemente TREE DRILLER.DISABILITY MANAGER Work Phone: Start: 08-11-2023 STREP A MOLECULAR (POC) [facility] Provider Start: 08-01-2023 INFLUENZA A&B MOLECULAR (POC) Chris NASH Work Phone: Start: 04-30-2023 INFLUENZA VACCINE, AGE 6 MO - 64 YR, QUADRIVALENT (AFLURIA, FLULAVAL, FLUZONE) Rick Queen MD Work Phone: Start: 04-30-2023 Urnls dip stick/tablet rgnt auto w/o microscopy Anny Older TREE DRILLER.DISABILITY MANAGER Work Phone: Start: 04-25-2023 Urnls dip stick/tablet rgnt auto w/o microscopy Sam Erin TREE DRILLER.DISABILITY MANAGER Work Phone: Start: 03-30-2023 Radiologic exam chest 2 views Oksana Shiraz TREE DRILLER.DISABILITY MANAGER Work Phone: Start: 03-11-2023 Mri any jt upper extremity w/o & w/contr matrl Sam Erin TREE DRILLER.DISABILITY MANAGER Work Phone: Start: 12-01-2022 Radex sacrum & coccyx minimum 2 views Gayla Ayala TREE DRILLER.DISABILITY MANAGER Work Phone: Start: 07-18-2022 STREP A MOLECULAR (POC) Kimberly Loya TREE DRILLER.DISABILITY MANAGER Work Phone: Start: 03-16-2022 Radex fingr minimum 2 views Pennie Austin TREE DRILLER.DISABILITY MANAGER Work Phone: Start: 07-18-2021 End: 07-18-2021 Ct head/brain w/o contrast material Boubacar Ferrell MD Work Phone: Start: 07-18-2021 Basic metabolic panel calcium total Boubacar Ferrell MD Work Phone: Start: 03-09-2021 Radiologic exam chest 2 views Yodit Saxena TREE DRILLER.DISABILITY MANAGER Work Phone: Adenoid excision JUAN MIGUEL VALERIO MD Fallopian tube excision JUAN MIGUEL MANLEY MD History of repair of musculotendinous cuff of shoulder S/P right rotator cuff repair Louis Valencia MD Work Phone: History of repair of musculotendinous cuff of shoulder S/P right rotator cuff repair Louis Valencia MD Work Phone: History of repair of musculotendinous cuff of shoulder S/P right rotator cuff repair Louis Valencia MD Work Phone: History of repair of musculotendinous cuff of shoulder S/P right rotator cuff repair Mri (I-Stat/1.5t) Work Phone: History of repair of musculotendinous cuff of shoulder S/P right rotator cuff repair Louis Valencia MD Work Phone: History of repair of musculotendinous cuff of shoulder S/P right rotator cuff repair Louis Valencia MD Work Phone: History of repair of musculotendinous cuff of shoulder S/P right rotator cuff repair Louis Valencia MD Work Phone: History of repair of musculotendinous cuff of shoulder S/P rotator cuff repair Stuart Haynes MD Work Phone: History of repair of musculotendinous cuff of shoulder S/P rotator cuff repair Louis Valencia MD Work Phone: Ligation of fallopian tube Yee MANLEY MD Oophorectomy Oophorectomy JUAN MIGUEL GUAJARDO MD Tonsillectomy JUAN MIGUEL AVINA MD Tonsillectomy Tonsillectomy JUAN MIGUEL APARICIO MD Plan of Treatment Date Care Activity Detail Author Start: 03-18-2034 Urine microalbumin profile DTaP,Tdap,Td Vaccine (3 - Td or Tdap) [facility] Start: 03-15-2032 Urine microalbumin profile [facility] Start: 07-09-2029 Screening for malign ant neoplasm of cervix Cervical Cancer Screening [facility] Start: 09-21-2025 Annual PCP Team [employer] Coord[employer] [place] Disease Visit Annual PCP Team Chronic Disease Visit [facility] Start: 07-31-2025 Annual PCP Team [employer] Coordinator [place] Disease Visit Annual PCP Team Chronic Disease Visit [facility] Start: 07-31-2025 Hepatitis B Vaccine (2 of 3 - Hep B Twinrix 3-dose series) Hepatitis B Vaccine (2 of 3 - Hep B Twinrix 3-dose series) [facility] Comment on above: Postponed from 05/19 (Declined at this time) Start: 07-11-2025 Annual PCP Team [employer] Coord[employer] [place] Disease Visit Annual PCP Team Chronic Disease Visit [facility] Start: 05-15-2025 Annual PCP Team [employer] Coordinator [place] Disease Visit Annual PCP Team Chronic Disease Visit [facility] Start: 04-25-2025 Annual PCP Team [employer] Coordinator [place] Disease Visit Annual PCP Team Chronic Disease Visit [facility] Start: 03-28-2025 Annual PCP Team [employer] Coordinator [place] Disease Visit Annual PCP Team Chronic Disease Visit [facility] Start: 03-28-2025 Covid-19 Vaccine ( season) Covid-19 Vaccine ( season) [facility] Comment on above: Postponed from 02/25 (Declined at this time) Start: 02-27-2025 Annual PCP Team [employer] Coordinator [place] Disease Visit Annual PCP Team Chronic Disease Visit [facility] Start: 02-25-2025 Influenza vaccination Influenz a Vaccine (Season Ended) [facility] Start: 02-04-2025 End: 02-04-2025 Patient encounter procedure 02/04/2025 4:40 PM EDT Office Visit [facility] [place] [address] [place] [address] Maile Norman MD [address] [facility] [place] [id number] 3 month follow up [facility] [place] Comment on above: 3 month follow up Start: 01-24-2025 Annual PCP Team [employer] Coord[employer] [place] Disease Visit Annual PCP Team Chronic Disease Visit [facility] Start: 01-10-2025 Annual PCP Team [employer] Coordinator [place] Disease Visit Annual PCP Team Chronic Disease Visit [facility] Start: 01-04-2025 End: 01-04-2025 Patient encounter procedure 01/04/2025 1:15 PM EDT Office Visit Orthopedics [address] [facility] [address] [place] [phone] Louis Valencia MD [address] [facility] [facility] [address] [place] [address] right shoulder Orthopedics Comment on above: right shoulder Start: 01-03-2025 End: 01-03-2025 Patient encounter procedure 01/03/2025 8:30 AM EDT Office Visit [facility] [address] [place] [address] Charles Elliott APRN.[facility] [address] [place] [address] S/P shoulder surgery [Z98.890]; Traumatic tear of right rotator cuff, unspecified tear extent, subsequent encounter [S46.011D]; Acute pain of right shoulder [M25.511] [facility] Comment on above: S/P shoulder surgery [Z98.890]; Traumatic tear of right rotator cuff, unspecified tear extent, subsequent encounter [S46.011D]; Acute pain of right shoulder [M25.511] Start: 12-24-2024 Influenza vaccination Influenza Vacc ine (#1) [facility] Comment on above: Postponed from 02/25 (Declined at this time) Start: 12-24-2024 End: 12-24-2024 ambulatory 12/24/2024 10:45 AM EDT OT/PT/Speech Visit [facility] [address] [place] [address] Kofi Gannon, PT Z98.890 (ICD-10-CM) - S/P right rotator cuff repair [facility] Comment on above: Z98.890 (ICD-10-CM) - S/P right rotator cuff repair Start: 12-19-2024 Annual PCP Team [employer] Coord[employer] [place] Disease Visit Annual PCP Team Chronic Disease Visit [facility] Start: 12-17-2024 End: 12-17-2024 ambulatory 12/17/2024 10:15 AM EDT OT/PT/Speech Visit [facility] [address] [place] [address] Claire Harrington, VETERANS [employer] COUNSELOR [address] [place] [address] Z98.890 (ICD-10-CM) - S/P right rotator cuff repair [facility] Comment on above: Z98.890 (ICD-10-CM) - S/P right rotator cuff repair Start: 12-10-2024 End: 12-10-2024 ambulatory 12/10/2024 9:45 AM EDT OT/PT/Speech Visit [facility] [address] [place] [address] Kofi Gannon PT Z98.890 (ICD-10-CM) - S/P right rotator cuff repair [facility] Comment on above: Z98.890 (ICD-10-CM) - S/P right rotator cuff repair Start: 12-03-2024 End: 12-03-2024 ambulatory 12/03/2024 9:30 AM EDT OT/PT/Speech Visit [facility] [address] [place] [address] Claire Harrington, VETER[employer] REH[employer]IT[employer] COUNSELOR [address] [place] [address] Z98.890 (ICD-10-CM) - S/P right rotator cuff repair [facility] Comment on above: Z98.890 (ICD-10-CM) - S/P right rotator cuff repair Start: 11-30-2024 End: 11-30-2024 Patient encounter procedure 11/30/2024 8:00 AM EDT Office Visit [facility] [place] [address] [facility] [place] [address] Sam Khan APRN.DISABILITY MANAGER [address] [place] [address] 2 wk follow up [facility] [place] Comment on above: 2 wk follow up Start: 11-28-2024 End: 11-28-2024 Patient encounter procedure 11/28/2024 11:40 AM EDT Office Visit [facility] [place] [address] [facility] [place] [place] [address] Sam Khan APRN.DISABILITY MANAGER [address] [place] [address] 2 wk follow up [facility] [place] Comment on above: 2 wk follow up Start: 11-26-2024 End: 11-26-2024 ambulatory 11/26/2024 9:00 AM EDT OT/PT/Speech Visit [facility] [address] [place] [address] Kofi Gannon PT Post Op PT [facility] Comment on above: Post Op PT Start: 11-23-2024 End: 11-23-2024 Patient encounter procedure 11/23/2024 2:15 PM EDT Office Visit Orthopedics [address] [facility] [address] [place] [phone] Louis Valencia MD [address] [facility] [facility] [address] [place] [address] S/P Right shoulder Dx arthroscopy 10-12-2024 Orthopedics Comment on above: S/P Right shoulder D x arthroscopy 10-12-2024 Start: 11-14-2024 End: 11-14-2024 ambulatory 11/14/2024 9:00 AM EDT OT/PT/Speech Visit [facility] [address] [place] [address] Jono Gallego, PT [address] [place] [address] Post Op PT [facility] Comment on above: Post Op PT Start: 11-10-2024 Annual PCP Team [employer] [place] Disease Visit Annual PCP Team Chronic Disease Visit [facility] Start: 11-02-2024 End: 11-02-2024 Patient encounter procedure [facility] [place] Comment on above: 3 month follow up Start: 10-26-2024 End: 10-26-2024 Patient encounter procedure 10/26/2024 3:00 PM EDT Office Visit Orthopedics [address] [facility] [address] [place] [address] Louis Valencia MD [address] [place] [address] S/P Right shoulder Dx arthroscopy 10-12-2024 Orthopedics Comment on above: S/P Right shoulder D x arthroscopy 10-12-2024 Start: 10-19-2024 End: 10-19-2024 ambulatory 10/19/2024 9:30 AM EDT OT/PT/Speech Visit [facility] [address] [place] [address] Jono Gallego, PT [address] [place] [address] Post Op PT [facility] Comment on above: Post Op PT Start: 10-19-2024 End: 10-19-2024 Patient encounter procedure 10/19/2024 9:20 AM EDT Office Visit [facility] [place] [address] [place] [address] Maile Norman MD [address] [place] [address] Pain management after surgery. 2nd rotator cuff surgery. [facility] [place] Comment on above: Pain management afte r surgery. 2nd rotator cuff surgery. Start: 10-13-2024 Annual PCP Team [employer] Coord[employer] [place] Disease Visit Annual PCP Team Chronic Disease Visit [facility] Start: 10-12-2024 End: 10-12-2024 Admission to same day surgery center 10/12/2024 10:50 AM EDT - 10/12/2024 12:31 PM EDT Surgery [facility] [address] [place] [address] Louis Valencia MD [address] [place] [address] ARTHROSCOPY SHOULDER [facility] Comment on above: ARTHROSCOPY SHOULDER Start: 10-12-2024 End: 10-12-2024 Arthroscopy shoulder dx w/wo synovial biopsy spx ARTHROSCOPY SHOULDER S/P right rotator cuff repair Right shoulder pain, unspecified chronicity 10/12/2024 10:50 AM EDT ME OR Start: 10-12-2024 Subsequent hospital visit by physician 10/12/2024 10:50 AM EDT Hospital Encounter [facility] [address] [place] [address] Louis Valencia MD [address] [place], [place] [id number] S/P right rotator cuff repair [Z98.890], Right shoulder pain, unspecified chronicity [M25.511] [facility] Comment on above: S/P right rotator cu ff repair [Z98.890], Right shoulder pain, unspecified chronicity [M25.511] Start: 09-28-2024 End: 09-28-2024 Anesthesia consultation 09/28/2024 9:20 AM EDT PAT Pre Anesthesia [address] [place] [address] 1, Pacc [place] [address] [place] [address] 10/12 DECLINED VV ARTHROSCOPY SHOULDER [1111] - Shoulder - Right Pre Anesthesia Comment on above: 10/12 DECLINED VV ART HROSCOPY SHOULDER [1111] - Shoulder - Right Start: 09-26-2024 Annual PCP Team [employer]inator [place] Disease Visit Annual PCP Team Chronic Disease Visit [facility] Start: 09-14-2024 End: 09-14-2024 Patient encounter procedure 09/14/2024 1:45 PM EDT Office Visit Orthopedics [address] [facility] [address] [place] [phone] Louis Valencia MD [address] [place] [address] 6 week follow up Orthopedics Comment on above: 6 week follow up Start: 09-08-2024 Annual PCP Team [employer] Coordinator [place] Disease Visit Annual PCP Team Chronic Disease Visit [facility] Start: 09-08-2024 Covid-19 Vaccine () Covid-19 Vaccine () [facility] Comment on above: Postponed from 02/25 (Declined at this time) Start: 08-05-2024 Annual PCP Team [employer] Coordinator [place] Disease Visit Annual PCP Team Chronic Disease Visit [facility] Start: 07-31-2024 End: 07-31-2024 Patient encounter procedure 07/31/2024 10:00 AM EST Office Visit Internal Medicine [place] [address] [place] [address] Maile Norman MD [address] [place], [place] [id number] 3 month follow up [facility] [place] Comment on above: 3 month follow up Start: 07-27-2024 End: 07-27-2024 Patient encounter procedure 07/27/2024 2:15 PM EST Office Visit Orthopedics [address] [facility] [address] [place] [id number] Louis Valencia MD [address] [facility] [facility] [address] [place], [place] [id number] injection, MRI results Orthopedics Comment on above: injection, MRI resul ts Start: 07-13-2024 End: 10-12-2024 Comprehensive metabolic 2000 panel - Serum or Plasma [facility] Work Phone: Comment on above: Expected: 07/13/2024 , Expires: 10/12/2024 Start: 07-09-2024 End: 10-08-2024 Estradiol (E2) [Mass/volume] in Serum or Plasma ESTRADIOL-17B BLD Lab Routine Menopausal symptoms Expected: 07/09/2024, Expires: 10/08/2024 [facility] Comment on above: Expected: 07/09/2024 , Expires: 10/08/2024 Start: 07-09-2024 End: 10-08-2024 Follitropin [Units/volume] in Serum or Plasma FOLLICLE STIMULATING HORMONE Lab Routine Menopausal symptoms Expected: 07/09/2024, Expires: 10/08/2024 [facility] Comment on above: Expected: 07/09/2024 , Expires: 10/08/2024 Start: 07-09-2024 End: 07-09-2024 Patient encounter procedure 07/09/2024 9:50 AM EST Appointment Mammogram [address] [place] [address] KEYON SCREENING W [place] Mammogram Comment on above: KEYON SCREENING W TERESITA Start: 07-09-2024 End: 07-09-2024 Patient encounter procedure 07/09/2024 7:30 AM EST Office Visit OB/Gynecology [address] [place] [address] Cecile Herndon APRN.DISABILITY MANAGER [address] [place] [address] Annual, Pap, Interested in pre menopause info OB/Gynecology Comment on above: Annual, Pap, Interes hira in pre menopause info Start: 06-19-2024 End: 06-19-2024 Patient encounter procedure 06/19/2024 7:30 AM EST Appointment Radiology [address] [place] [address] S/P right rotator cuff repair [Z98.890] Radiology Comment on above: S/P right rotator cu ff repair [Z98.890] Start: 06-06-2024 End: 06-06-2024 Patient encounter procedure 06/06/2024 8:30 AM EST Office Visit General Surgery [address] [address] John Maher MD [address] [place] [address] Dx: Injury of left upper extremity, subsequent encounter [S49.92XD (ICD-10-CM)]; Mass of left upper extremity [R22.32 (ICD-10-CM)] General Surgery Comment on above: Dx: Injury of left u pper extremity, subsequent encounter [S49.92XD (ICD-10-CM)]; Mass of left upper extremity [R22.32 (ICD-10-CM)] Start: 05-21-2024 End: 05-21-2024 Patient encounter procedure 05/21/2024 9:40 AM EST Office Visit Internal Medicine [place] [address] [place] [address] Anny Carter TREE DRILLER.DISABILITY MANAGER [address] [place] [address] follow-up - blister on right hand [facility] [place] Comment on above: follow-up - blister on right hand Start: 05-11-2024 End: 08-10-2024 Herpes simplex virus+Varicella zoster virus DNA [Presence] in Unspecified specimen by MARY KAY with probe detection HSV1,2/VZV NAAT LESION Lab Routine Rash Expected: 05/11/2024, Expires: 08/10/2024 [facility] Work Phone: Comment on above: Expected: 05/11/2024 , Expires: 08/10/2024 Start: 04-25-2024 End: 04-25-2024 Patient encounter procedure 04/25/2024 1:00 PM EDT Office Visit Internal Medicine [place] [address] [place] [address] Sam Khan APRN.DISABILITY MANAGER [address] [place] [address] 4 week follow up post suture removel left arm [facility] [place] Comment on above: 4 week follow up pos t suture removel left arm Start: 02-28-2024 End: 05-29-2024 CBC W Auto Differential panel - Blood [facility] Work Phone: Comment on above: Expected: 02/28/2024 , Expires: 05/29/2024 Start: 02-28-2024 End: 05-29-2024 Comprehensive metabolic 2000 panel - Serum or Plasma [facility] Comment on above: Expected: 02/28/2024 , Expires: 05/29/2024 Start: 02-28-2024 End: 05-29-2024 Hepatitis C virus Ab [Presence] in Serum [facility] Comment on above: Expected: 02/28/2024 , Expires: 05/29/2024 Start: 02-28-2024 End: 05-29-2024 HIV 1+2 Ab [Presence] in Serum or Plasma by Immunoassay [facility] Comment on above: Expected: 02/28/2024 , Expires: 05/29/2024 Start: 02-26-2024 Covid-19 Vaccine () Covid-19 Vaccine () [facility] Start: 02-26-2024 Covid-19 Vaccine () Covid-19 Vaccine () [facility] Start: 02-26-2024 Influenza vaccination Influenza Vacc ine (#1) [facility] Start: 02-07-2024 End: 02-07-2024 Patient encounter procedure 02/07/2024 3:15 PM EDT Office Visit [facility] [address] [place], [place] [id number] Louis Valencia MD [address] [facility] [place], [place] [phone] est pt post op left shoulder [facility] Comment on above: est pt post op left shoulder Start: 01-25-2024 End: 01-25-2024 Patient encounter procedure 01/25/2024 3:00 PM EDT Office Visit Internal Medicine [place] [address] [place], [place] [phone] Sam Khan APRN.[facility] [address] [place] [address] 2 wk follow up [facility] [place] Comment on above: 2 wk follow up Start: 01-11-2024 COVID-19 VACCINE (#1) COVID-19 VACCI NE (#1) [facility] Comment on above: Postponed from 07/25 (Declined at this time) Start: 01-10-2024 End: 01-10-2024 Patient encounter procedure 01/10/2024 8:40 AM EDT Office Visit Internal Medicine [place] [address] [place], [place] [phone] Sam Khan APRN.DISABILITY MANAGER [address] [place] [address] 3 week medication follow up [facility] [place] Comment on above: 3 week medication fo llow up Start: 12-20-2023 End: 12-20-2023 Patient encounter procedure 12/20/2023 8:00 AM EDT Office Visit Internal Medicine [place] [address] [facility] [place] [place] [address] Sam Khan APRN.DISABILITY MANAGER [address] [place] [address] med check [facility] [place] Comment on above: med check Start: 12-14-2023 End: 12-14-2023 Patient encounter procedure 12/14/2023 2:40 PM EDT Office Visit Internal Medicine [place] [address] [facility] [place] [place] [address] Sam Khan APRN.DISABILITY MANAGER [address] [place] [address] Review pain medication [facility] [place] Comment on above: Review pain medicati on Start: 12-14-2023 End: 12-14-2023 ambulatory 12/14/2023 1:30 PM EDT OT/PT/Speech Visit [facility] [address] [place] [address] Yodit Baker, PT right shoulder post op [facility] Comment on above: right shoulder post op Start: 12-07-2023 End: 12-07-2023 ambulatory 12/07/2023 12:45 PM EDT OT/PT/Speech Visit [facility] [address] [place] [address] Mya'Yodit Robin, PT right shoulder post op [facility] Comment on above: right shoulder post op Start: 11-30-2023 End: 11-30-2023 ambulatory 11/30/2023 12:45 PM EDT OT/PT/Speech Visit [facility] [address] [place] [address] O'LobitoYodit, PT right shoulder post op [facility] Comment on above: right shoulder post op Start: 11-24-2023 End: 11-24-2023 ambulatory 11/24/2023 9:30 AM EDT OT/PT/Speech Visit [facility] [address] [place] [address] O'LobitoPriyaYodit, PT right shoulder post op [facility] Comment on above: right shoulder post op Start: 11-22-2023 End: 11-22-2023 Patient encounter procedure 11/22/2023 1:15 PM EDT Office Visit [facility] [address] [facility] [place] [address] Louis Valencia MD [address] [facility] [place], [place] [address] RIGHT SHOULDER [facility] Comment on above: RIGHT SHOULDER Start: 11-16-2023 End: 11-16-2023 ambulatory 11/16/2023 12:45 PM EDT OT/PT/Speech Visit [facility] [address] [place] [address] O'LobitoYodit jack, PT right shoulder post op [facility] Comment on above: right shoulder post op Start: 11-11-2023 End: 11-11-2023 Patient encounter procedure 11/11/2023 10:20 AM EDT Office Visit [facility] [place] [address] [place] [address] [place] [address] Sam Khan APRN.[facility] [address] [facility] [place] [facility] [place] [address] Review pain medication [facility] [place] Comment on above: Review pain medicati on Start: 11-09-2023 End: 11-09-2023 ambulatory 11/09/2023 1:30 PM EDT OT/PT/Speech Visit [facility] [address] [place] [address] Yodit Baker, PT right shoulder post op [facility] Comment on above: right shoulder post op Start: 10-25-2023 End: 10-25-2023 ambulatory 10/25/2023 11:15 AM EDT OT/PT/Speech Visit [facility] [address] [place] [address] Yodit Baker PT [place] [facility] Comment on above: [place] Start: 02-25-2023 Covid-19 Vaccine () Covid-19 Vaccine () [facility] Start: 02-25-2023 Influenza vaccination C [facility] Start: 12-24-2022 Influenza vaccination INFLUENZA (#1) [facility] Comment on above: Postponed from 02/25 (Declined at this time) Start: 09-28-2022 HPV TESTING HPV TESTING [facility] Start: 09-28-2022 PAP TESTING PAP TESTING [facility] Start: 09-28-2022 Screening for malign ant neoplasm of cervix [facility] Start: 07-18-2022 End: 08-01-2022 Influenza virus A and B RNA and SARS-CoV-2 (COVID-19) N gene panel - Respiratory specimen by MARY KAY with probe detection COVID WITH FLUA+B, ROUTINE Microbiology Routine URI, acute Expected: 07/18/2022, Expires: 08/01/2022 [facility] Work Phone: Comment on above: Expected: 07/18/2022 , Expires: 08/01/2022 Start: 05-12-2022 COVID-19 VACCINE (#1) COVID-19 VACCI NE (#1) [facility] Comment on above: Postponed from 01/22 (Declined at this time) Postponed from 07/25 (Declined at this time) Start: 05-12-2022 PNEUMOCOCCAL (1 - PCV) PNEUMOCOCCAL (1 - PCV) [facility] Comment on above: Postponed from 01/22 (Declined at this time) Start: 05-07-2022 End: 07-07-2022 CBC W Auto Differential panel - Blood CBC + DIFF Lab Routine Insomnia, unspecified type Expected: 05/07/2022, Expires: 07/07/2022 [facility] Work Phone: Comment on above: Expected: 05/07/2022 , Expires: 07/07/2022 Start: 05-07-2022 End: 07-07-2022 Comprehensive metabolic 2000 panel - Serum or Plasma COMP METABOLIC PANEL Lab Routine Insomnia, unspecified type Expected: 05/07/2022, Expires: 07/07/2022 [facility] Work Phone: Comment on above: Expected: 05/07/2022 , Expires: 07/07/2022 Start: 03-05-2022 End: 05-05-2022 CBC panel - Blood by Automated count CBC Lab Routine Encounter for long-term current use of medication Expected: 03/05/2022, Expires: 05/05/2022 [facility] Work Phone: Comment on above: Expected: 03/05/2022 , Expires: 05/05/2022 Start: 03-05-2022 End: 05-05-2022 Comprehensive metabolic 2000 panel - Serum or Plasma COMP METABOLIC PANEL Lab Routine Encounter for long-term current use of medication Expected: 03/05/2022, Expires: 05/05/2022 [facility] Work Phone: Comment on above: Expected: 03/05/2022 , Expires: 05/05/2022 Start: 02-25-2022 Influenza vaccination C [facility] Start: 2022 Mammography [facility] Start: 2022 Screening for malign ant neoplasm of breast Mammogram Screening [facility] Start: 02-25-2021 Influenza vaccination Flu vaccine (# 1) [facility] Start: 05-19-2016 HEPATITIS B (2 of 3 - Hep B Twinrix 3-dose series) HEPATITIS B (2 of 3 - Hep B Twinrix 3-dose series) [facility] Start: 05-19-2016 Hepatitis B Vaccine (2 of 3 - Hep B Twinrix 3-dose series) Hepatitis B Vaccine (2 of 3 - Hep B Twinrix 3-dose series) [facility] Start: 2001 Urine microalbumin profile DTAP,TDAP,TD (1 - Tdap) [facility] Start: 01-23-1988 PNEUMOCOCCAL (1 - PCV) PNEUMOCOCCAL (1 - PCV) [facility] Start: 01-23-1988 Pneumococcal vaccination Pneumococcal Vaccine (1 - PCV) [facility] Start: 1987 COVID-19 Vaccine (1) COVID-19 Vaccin e (1) [facility] Start: 1982 COVID-19 VACCINE (#1) COVID-19 VACCI NE (#1) [facility] Bacteria identified in Urine by Culture URINE CULTURE Microbiology Routine Dysuria 04/30/2023 9:30 AM EDT [facility] Work Phone: End: 06-25-2023 Bx breast w/device 1st lesion ultrasound guid US BIOPSY BREAST RT Radiology Routine Mass of right breast, unspecified quadrant 1 Occurrences starting 05/26/2022 until 06/25/2023 [facility] Work Phone: Comment on above: 1 Occurrences starti ng 05/26/2022 until 06/25/2023 COVID & INFLUENZA A/ B & RSV NAAT, ROUTINE COVID & INFLUENZA A/B & RSV NAAT, ROUTINE Microbiology Routine Flu-like symptoms URI, acute Ordered: 08/01/2023 [facility] Work Phone: Comment on above: Ordered: 08/01/2023 End: 02-09-2025 DBT Breast - bilateral screening KEYON SCREENING W TERESITA Radiology Routine Encounter for screening mammogram for breast cancer 1 Occurrences starting 01/11/2024 until 02/09/2025 [facility] Work Phone: Comment on above: 1 Occurrences starti ng 01/11/2024 until 02/09/2025 End: 08-08-2025 DBT Breast - bilateral screening KEYON SCREENING W TERESITA Radiology Routine Encounter for screening mammogram for breast cancer 1 Occurrences starting 07/09/2024 until 08/08/2025 [facility] Comment on above: 1 Occurrences starti ng 07/09/2024 until 08/08/2025 End: 06-10-2023 Diagnostic mammography computer-aided detcj bi KEYON DIAGNOSTIC BILAT Radiology Routine Breast pain Mass of lower inner quadrant of right breast 1 Occurrences starting 05/11/2022 until 06/10/2023 [facility] Work Phone: Comment on above: 1 Occurrences starti ng 05/11/2022 until 06/10/2023 End: 06-30-2023 Diagnostic mammography computer-aided detcj bi KEYON DIAGNOSTIC BILAT Radiology Routine Abnormal finding on radiological examination of breast 1 Occurrences starting 05/31/2022 until 06/30/2023 [facility] Work Phone: Comment on above: 1 Occurrences starti ng 05/31/2022 until 06/30/2023 End: 06-06-2023 Diagnostic mammography computer-aided detcj uni KEYON DIAGNOSTIC RT Radiology Routine Breast pain Mass of lower inner quadrant of right breast 1 Occurrences starting 05/07/2022 until 06/06/2023 [facility] Work Phone: Comment on above: 1 Occurrences starti ng 05/07/2022 until 06/06/2023 ECG COMPLETE ECG COMPLETE ECG Routine Tachycardia Ordered: 04/30/2023 [facility] Work Phone: Comment on above: Ordered: 04/30/2023 Hepb vaccine adult 2 dose schedule for im use HEPLISAV B (HEPATITIS B, ADJUVANT, ADULT) Immunization/Injection Routine Encounter for immunization Ordered: 05/07/2022 [facility] Work Phone: Comment on above: Ordered: 05/07/2022 Influenza virus A an d B RNA and SARS-CoV-2 (COVID-19) N gene panel - Respiratory specimen by MARY KAY with probe detection COVID WITH FLUA+B, ROUTINE Microbiology Routine Viral illness 01/20/2022 4:05 PM EDT [facility] Work Phone: Influenza virus A an d B RNA and SARS-CoV-2 (COVID-19) N gene panel - Respiratory specimen by MARY KAY with probe detection COVID WITH FLUA+B, ROUTINE Microbiology Routine Viral URI with cough 09/09/2022 10:51 AM EDT [facility] Work Phone: Influenza virus A an d B RNA and SARS-CoV-2 (COVID-19) N gene panel - Respiratory specimen by MARY KAY with probe detection COVID & INFLUENZA A/B NAAT, ROUTINE Microbiology Routine Acute cough 08/11/2023 9:10 AM EST [facility] Work Phone: End: 03-10-2024 KEYON SCREENING KEYON SCREENING Radiology Routine Encounter for screening mammogram for breast cancer 1 Occurrences starting 02/09/2023 until 03/10/2024 [facility] Work Phone: Comment on above: 1 Occurrences starti ng 02/09/2023 until 03/10/2024 End: 03-08-2025 MR Shoulder - right WO contrast MRI SHOULDER WO IVCON RIGHT Radiology Routine S/P right rotator cuff repair Right shoulder pain, unspecified chronicity 1 Occurrences starting 02/07/2024 until 03/08/2025 [facility] Work Phone: Comment on above: 1 Occurrences starti ng 02/07/2024 until 03/08/2025 End: 03-09-2024 MRI SHOULDER WO/W IVCON RIGHT MRI SHOULDER WO/W IVCON RIGHT Radiology Routine Tear of right glenoid labrum, subsequent encounter Chronic right shoulder pain 1 Occurrences starting 02/08/2023 until 03/09/2024 [facility] Work Phone: Comment on above: 1 Occurrences starti ng 02/08/2023 until 03/09/2024 PAP TEST PAP TEST Lab [facility] Screening for cervical cancer Encounter for screening for human papillomavirus (HPV) Ordered: 07/09/2024 [facility] Work Phone: Comment on above: Ordered: 07/09/2024 End: 12-31-2023 Radex sacrum & coccyx minimum 2 views XR SACRUM/COCCYX 3V AP/LAT Radiology Routine Coccydynia 1 Occurrences starting 12/01/2022 until 12/31/2023 [facility] Work Phone: Comment on above: 1 Occurrences starti ng 12/01/2022 until 12/31/2023 Radex sacrum & coccy x minimum 2 views XR SACRUM/COCCYX 3V AP/LAT Radiology Routine Coccydynia 12/01/2022 2:08 PM EDT [facility] Work Phone: End: 04-02-2023 Screening mammography bi 2-view breast inc cad KEYON SCREENING Radiology Routine Encounter for screening mammogram for breast cancer 1 Occurrences starting 03/03/2022 until 04/02/2023 [facility] Work Phone: Comment on above: 1 Occurrences starti ng 03/03/2022 until 04/02/2023 UA DIP B/O UA DIP B/O Lab R outine Acute cystitis with hematuria Ordered: 04/25/2023 [facility] Work Phone: Comment on above: Ordered: 04/25/2023 End: 06-06-2023 Us breast uni real time with image limited US BREAST LTD RT Radiology Routine Breast pain Mass of lower inner quadrant of right breast 1 Occurrences starting 05/07/2022 until 06/06/2023 [facility] Work Phone: Comment on above: 1 Occurrences starti ng 05/07/2022 until 06/06/2023 End: 06-30-2023 Us breast uni real time with image limited US BREAST LTD RT Radiology Routine Abnormal finding on radiological examination of breast 1 Occurrences starting 05/31/2022 until 06/30/2023 [facility] Work Phone: Comment on above: 1 Occurrences starti ng 05/31/2022 until 06/30/2023 End: 05-25-2024 XR Hand - right PA and Lateral and Oblique XR HAND GENERAL 3V PA/LAT/OBL RIGHT Radiology STAT Pain of right hand 1 Occurrences starting 05/23/2024 until 05/25/2024 [facility] Work Phone: Comment on above: 1 Occurrences starti ng 05/23/2024 until 05/25/2024 End: 10-21-2025 XR HIP BILATERAL 5V PEL/AP/LAT EACH HIP XR HIP BILATERAL 5V PEL/AP/LAT EACH HIP Radiology Routine Right hip pain 1 Occurrences starting 09/21/2024 until 10/21/2025 [facility] Work Phone: Comment on above: 1 Occurrences starti ng 09/21/2024 until 10/21/2025 XR HIP BILATERAL 5V PEL/AP/LAT EACH HIP XR HIP BILATERAL 5V PEL/AP/LAT EACH HIP Radiology Routine Right hip pain 09/21/2024 9:28 AM EDT [facility] Immunizations Immunization Date Immunization Notes Care Provider Rosaura elena 03-18-2024 tetanus toxoid, reduced diphtheria toxoid, and acellular pertussis vaccine, adsorbed Sam Erin TREE DRILLER.DISABILITY MANAGER Work Phone: [facility] 04-30-2023 influenza, injectable, quadrivalent, contains preservative Rick Queen MD Work Phone: [facility] 04-30-2023 pneumococcal (PCV20) vaccine, 20 valent (PREVNAR 20) Rick Queen MD Work Phone: [facility] 04-30-2023 pneumococcal Conjugate, unspecified formulation Rick Queen MD Work Phone: [facility] Work Phone: 04-30-2023 influenza virus vaccine, unspecified formulation Sam Erin TREE DRILLER.DISABILITY MANAGER Work Phone: [facility] 03-15-2022 tetanus toxoid, reduced diphtheria toxoid, and acellular pertussis vaccine, adsorbed Karen Gaspar TREE DRILLER.MEDICAL CODING TECHNICIAN Work Phone: [facility] Work Phone: 06-16-2017 influenza virus vaccine, unspecified formulation Sam Erin TREE DRILLER.DISABILITY MANAGER Work Phone: [facility] 04-21-2016 hepatitis A and hepatitis B vaccine Maile Norman MD Work Phone: [facility] Work Phone: 04-21-2016 hepatitis B vaccine, unspecified formulation Maile Norman MD Work Phone: [facility] 04-10-2009 influenza virus vaccine, unspecified formulation Maile Norman MD Work Phone: [facility] 04-26-2006 influenza virus vaccine, unspecified formulation Maile Norman MD Work Phone: [facility] Work Phone: 01-25-1998 tetanus immune globulin Maile Norman MD Work Phone: [facility] Work Phone: NEGATED: Highlighted row has not occurred!05-07-2022 Hepatitis B vaccine (recombinant), CpG adjuvanted Karenmarianna Gaspar MEDICAL CODING TECHNICIAN Work Phone: [facility] Work Phone: Comment on above: Deferred: Postponed Payers Date Payer Category Payer Self-pay 2023 Unknown [id number] 2022 Unknown [id number] 2019 Medicaid [place] [employer] [place] [id number] 2019-Present [phone] [place] [address] Medicaid [id number] 2019 Medicaid [id number] 2019 Unknown [id number] 1982 Unknown [id number] 1982 Unknown [id number] [id number]7 1980 Unknown [id number] 2.16.840.1.983447.3.579.2.627 Unknown [id number] 2.16.840.1.770570.3.579.2.627 Unknown [id number] 2.16.840.1.669524.3.579.2.627 Unknown [id number] 2.16.840.1.354247.3.579.2.627 Unknown [id number] 2.16.840.1.047160.3.579.2.462 Unknown [id number] 2.16.840.1.673196.3.579.2.462 Unknown [id number] 2.16.840.1.462826.3.579.2.462 Unknown [id number] 2.16.840.1.855823.3.579.2.462 Unknown [id number] 2.16.840.1.152257.3.579.2.462 Unknown [id number] 2.16.840.1.441476.3.579.2.462 Unknown [id number] 2.16.840.1.167363.3.579.2.462 Unknown [id number] 2.16.840.1.506634.3.579.2.462 Unknown [id number] 2.16.840.1.741922.3.579.2.462 Unknown [id number] 2.16.840.1.388964.3.579.2.462 Unknown [id number] 2.16.840.1.114484.3.579.2.462 Unknown [id number] 2.16.840.1.677657.3.579.2.462 Unknown [id number] 2.16.840.1.814505.3.579.2.462 Unknown [id number] 2.16.840.1.371976.3.579.2.462 Unknown [id number] 2.16.840.1.665412.3.579.2.462 Unknown [id number] 2.16.840.1.233985.3.579.2.462 Unknown [id number] 2.16.840.1.722223.3.579.2.462 Unknown [id number] 2.16.840.1.945066.3.579.2.462 Unknown [id number] 2.16.840.1.795881.3.579.2.462 Unknown [id number] 2.16.840.1.298113.3.579.2.462 Unknown [id number] 2.16.840.1.054765.3.579.2.462 Unknown [id number] 2.16.840.1.423710.3.579.2.462 Social History Date Type Detail Facility Start: 05-09-2016 End: 02-16-2024 Tobacco smoking status [facility] Smokes tobacco daily [facility] Start: 05-09-2016 End: 02-16-2024 Tobacco use and exposure Smokeless tobacco non-user [facility] Work Phone: Start: 07-18-2021 End: 11-28-2024 Alcohol intake Current non-drinker of alcohol (finding) [facility] Work Phone: Start: 1980 Sex Assigned At Not on file S [facility] Work Phone: Start: 02-07-2021 End: 05-25-2022 Exposure to SARS-CoV-2 (event) Not sure [facility] Work Phone: History of tobacco use Cigarette Smoker C [facility] Work Phone: Start: 01-08-2020 End: 12-01-2022 History SDOH Alcohol Frequency 1 [facility] Start: 01-08-2020 History SDOH Alcohol Std Drinks 98 [facility] Start: 01-08-2020 End: 12-01-2022 History SDOH Social Connections Phone 2 [facility] Start: 01-08-2020 End: 12-01-2022 History SDOH Social Connections Living 3 [facility] Start: 01-08-2020 End: 12-01-2022 History SDOH Physical Activity MPS 0 [facility] Start: 01-08-2020 End: 12-01-2022 History SDOH Stress 5 [facility] Start: 01-08-2020 End: 12-01-2022 History SDOH Financial 4 [facility] Start: 01-08-2020 Education 12 [facility] Start: 01-10-2022 End: 01-20-2022 Exposure to SARS-CoV-2 (event) Yes [facility] Work Phone: Start: 01-27-2009 End: 12-01-2022 Cigarettes smoked current (pack per day) - Reported 1 [facility] Start: 12-01-2022 End: 10-10-2023 Social connection and isolation panel [facility] Are you now , , , , never or living with a partner? [facility] How often to you hav e a drink containing alcohol? Never [facility] How many standard dr inks containing alcohol do you have on a typical day? Patient does not drink [facility] How hard is it for y ou to pay for the very basics like food, housing, medical care, and heating Not very hard [facility] Do you feel stress - tense, restless, nervous, or anxious, or unable to sleep at night because your mind is troubled all the time - these days [OSQ] Very much [facility] (I/We) worried wheth er (my/our) food would run out before (I/we) got money to buy more. Never true [facility] At any time in the p ast 12 months, were you homeless or living in [facility] [including now]? No [facility] Start: 06-28-2019 End: 04-29-2024 Tobacco smoking status Heavy tobacco smoker (finding) [facility] Sex Assigned At Sex [facility] (I/We) worried wheth er (my/our) food would run out before (I/we) got money to buy more. Often true [facility] The food that (I/we) bought just didn't last, and (I/we) didn't have money to get more. Sometimes true [facility] Medical Equipment Procedure Code Equipment Code Equipment Origin al Text Equipment Identifier Dates Kit Fiberloop 3. 2mm Suture Drill Pin Needle Shoehorn Cannula Proximal - [id number] Start: 08-29-2023 [place] Pushlock 2.9mm Short Biocomposite 12.5mm Suture Cannulated Eyelet - [id number] Start: 08-29-2023 [place] Pushlock 2.9mm Short Biocomposite 12.5mm Suture Cannulated Eyelet - [id number] Start: 08-29-2023 [place] Pushlock 2.9mm Short Biocomposite 12.5mm Suture Cannulated Eyelet - [id number] Start: 10-12-2024 [place] Pushlock 2.9mm Short Biocomposite 12.5mm Suture Cannulated Eyelet - [id number] Start: 10-12-2024 [place] Pushlock 2.9mm Short Biocomposite 12.5mm Suture Cannulated Eyelet - [id number] Start: 10-12-2024 Functional Status Date Assessment Result Facility 04-29-2024 Functional Status Standard Safet y ID band on, Call device within reach, Bed in low position, Wheels locked, Bedside Cart Locked, Visitor at bedside, Safety level maintained [facility] 02-10-2024 Functional Status Independent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 Bilirubin, Conjug (mg/dL) Date Value 12/25/2015 <0.2 Alkaline Phosphatase (U/L) Date Value 07/13/2024 67 AST (U/L) Date Value 07/13/2024 21 ALT (U/L) Date Value 07/13/2024 18 Protein, Total (g/dL) Date Value 07/13/2024 5.9 (L) Attention deficit hyperactivity disorder (ADHD), predominantly inattentive type Assessment: hx, no current tx Depression Assessment: stable on rx per pt Marijuana use Assessment: daily flower, instructed to withhold prior to surgery, pt verbalized understanding. ANESTHESIA FINDINGS: Intubation History: No history of difficult intubation Significant Anesthesia Considerations: none Airway History: No history of difficult airway Lemon Activity Status Index: METS: Climb a flight of stairs or walk up a hill (5.50 METs) DASI Score: 5.5 Patient denies any chest pain or undue shortness of breath with the above physical activity. Clinical Frailty Scale: 2. Well STOP-Bang Score: Snores loudly Denies feeling tired, fatigued, or sleepy during the daytime Has not been observed to stop breathing or choking/gasping during sleep Denies having high blood pressure BMI less than or equal to 35 kg/m^2 Patient 50 years old or younger Does not have a large neck Non-male patient STOP-Bang Score: 1 [id number] Score: Age: <65 Sex: female CHF history: No Hypertension history: No Stroke/TIA/thromboembolism history: No Vascular disease history: No Diabetes history: No [id number] Score: 1 ARISCAT Score: Age: <=50 Preoperative SpO2: >=96% Respiratory infection in the last month: No Preoperative anemia: No Surgical incision: peripheral Duration of surgery: <2 hrs Emergency procedure: No ARISCAT Score: 0 I - PHYSICAL EVALUATION AIRWAY Patient intubated: No. Tracheostomy tube not present Mallampati: II. TM distance: >3 FB. Neck ROM: full ROM without neurological symptoms. Mouth opening: adequate. Short neck: no. Thick neck: no Pradhan present: no Lip Bite Test: I Microretrognathia/Micronagthia/Recesse d Chin: No DENTAL Dental findings: teeth intact. Dentures, upper: partial. II - ANESTHESIA PLAN Anesthetic Plan: other Beta Mariya Monitoring Plan Post Procedure Analgesic Plan Prepared for Surgery: optimally prepared for surgery. CONSULTS: Patient does not require consults for optimization at this time Planned Anesthetic: other anesthesia choice The Following Tests/Procedures Have Been Initiated: No orders of the defined types were placed in this encounter. REASON FOR VISIT: Pat Knight is a 44 year old female who is scheduled for Procedure(s): ARTHROSCOPY SHOULDER (Right) at the request of Dr. Louis Valencia for consultation. My final recommendation will be communicated back to the requesting physician by way of shared medical record or letter. Subjective The patient has the following: COVID-19 Immunization Status Upcoming Covid-19 Vaccine () Postponed until 03/28/2025 03/28/2024 Postponed until 03/28/2025 by Karen Shore LPN (Declined at this time) 09/09/2023 Postponed until 09/08/2024 by Adelina Porras MA (Declined at this time) 01/10/2023 Postponed until 01/11/2024 by Karen Shore LPN (Declined at this time) Only the first 3 history entries have been loaded, but more history exists. CHIEF COMPLAINT: Pre-op exam HPI: Pat Knight is a 44 year old seen for PAC due to scheduled above surgery because s/p right rotator cuff repair. 09/14/2024, Dr. Louis Valencia Pat is a 44-year-old female with a history of right shoulder pain, presenting for follow-up. Right Shoulder Pain: - Persistent right shoulder pain since 09/29/2022. - No improvement following corticosteroid injection; reports increased soreness 4 days post-injection. - Pain described as a strain rather than stabbing. - Pain localized to the rotator cuff area, with no tenderness in the muscle or incision site. - Denies significant swelling post-surgery. - Hesitant about undergoing another surgery due to concerns about the healing process. - No history of shoulder pain prior to the injury. - Current smoker; was smoking at the time of the initial surgery. - Denies diabetes mellitus. REVIEW OF SYSTEMS: General: No weight loss, malaise or fevers. Neurological: Positive for: headaches. Negative for: cerebral palsy, MEDICAL CODING TECHNICIAN tumor, dementia, impaired sensorium, multiple sclerosis, Parkinson's disease, peripheral neuropathy, seizures, TIA and strokes. Respiratory: Positive for: tobacco use (1ppd). Negative for: asthma, COPD, current cough, dyspnea, pneumonia within 6 weeks, URI < 2 weeks and obstructive sleep apnea. Cardiovascular: No history of HTN requiring medication, no history of angina, CHF, SC, cardiac surgery or stents. Denies rest pain, gangrene or revascularization/amputation for PVD. No history of cardiovascular symptoms or problems. GI: Positive for: liver disease (hx tx) Negative for: abdominal pain, dysphagia, GERD, hepatitis, irritable bowel syndrome, inflammatory bowel disease, nausea, pancreatitis, vomiting and ETOH >2 drinks/day. : No history of dysuria, frequency or incontinence, stones or chronic kidney disease. No difficulty urinating, nocturia > 1 time per night or hematuria. 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 Endocrine: No history of diabetes. Has not taken steroids within the past 30 days. No history of endocrinological symptoms or problems. Hematology: No history of bleeding or clotting disorder. Patient is not taking anti-coagulation or platelet medications. No history of hematological symptoms or problems. Oncology: No history of CA metastasis, chemo within 30 days, or radiotherapy within 90 days. No history of oncological symptoms or problems. Psych: Positive for: anxiety (rx as needed) and Marijuana Use. Product type: Flower. Route of administration: Inhalation. Frequency: Daily. Musculoskeletal: See HPI. Skin: Negative for lesions, rash and itching. Implanted Devices: No implanted devices. PAST MEDICAL HISTORY Diagnosis Date Abdominal pain, unspecified site Abnormal glandular Papanicolaou smear of cervix 04/08/2006 Abn. 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 No issues in 16 years Depression Diarrhea Irritable bowel syndrome Mental disorders complicating , childbirth, or the puerperium DEPRESSION Migraine, unspecified, with intractable migraine, so stated, without mention of status migrainosus Other and unspecified ovarian cyst PMH - PAST MEDICAL HISTORY OF Narcotic dependence requiring rehab in 2006 Temporomandibular joint disorders, unspecified PAST SURGICAL HISTORY Procedure Laterality Date ADENOIDECTOMY PRIMARY Adenoidectomy COLPOSCOPY CERVIX UPPER/ADJACENT VAGINA Colposcopy DILATION & CURETTAGE DX&/THER NONOBSTETRIC 06/27/2000 Dilation & curettage,TAB ESOPHAGOGASTRODUODENOSCOPY TRANSORAL DIAGNOSTIC 11/01/2011 EGD [facility] inpt H-pylori negative LIG/TRNSXJ FLP TUBE ABDL/VAG APPR UNI/BI 04/09/2006 Tubal ligation MYRINGOTOMY ASPIR&/EUSTACHIAN TUBE NFLTJ ANES 06/27/1994 Myringotomy/tubes OOPHORECTOMY PARTIAL/TOTAL UNI/BI left REPAIR ROTATOR CUFF,ACUTE Right 2023 TONSILLECTOMY PRIMARY/SECONDARY Tonsillectomy FAMILY HISTORY Problem Relation Age of Onset Psychiatry Mother DEPRESSION Hypertension Father Cervical Cancer Maternal Grandmother Hypertension Maternal Grandmother Cancer Maternal Grandfather BLADDER Heart Maternal Grandfather SC & EMPHYSEMA Social History Tobacco Use Smoking status: Every Day Current packs/day: 1.00 Average packs/day: 1 pack/day for 30.0 years (30.0 ttl pk-yrs) Types: Cigarettes Smokeless tobacco: Never Vaping Use Vaping status: Never Used Substance Use Topics Alcohol use: No Drug use: Yes Types: Marijuana Comment: daily Prior to Admission medications as of 09/28/24 0911 Medication Sig Last Dose Taking oxyCODONE-acetaminophen (PERCOCET) 5-325 mg tablet Take 1 tablet by mouth every 6 hours as needed for pain for up to 14 days. Patient should start on September 17, 2024. Yes gabapentin (NEURONTIN) 300 mg capsule Take 1 capsule by mouth three times a day for 90 days. Yes meloxicam (MOBIC) 15 mg tablet Take 1 tablet by mouth once daily. With food. Yes estradiol (ESTRACE) 0.01 % (0.1 mg/gram) vaginal cream Use 0.5g vaginally at bedtime for 2 weeks then 1-3 time/weeks for maintenance. Yes traZODone (DESYREL) 100 mg tablet Take 1 tablet by mouth daily at bedtime. Yes albuterol HFA (PROVENTIL HFA, VENTOLIN HFA) 90 mcg/actuation inhaler Inhale 2 Puffs as instructed every 4 hours as needed for wheezing/shortness of breath. Yes lidocaine (LIDODERM) 5 % Apply 1 Patch as directed every 24 hours. Wear patch for 12 hours and then remove for 12 hours prior to placing new patch, apply to the right shoulder area. Yes tiZANidine (ZANAFLEX) 4 mg tablet Take 1 tablet by mouth every 6 hours as needed. For muscle tightness/pain (muscle relaxer) Yes ondansetron orally disintegrating (ZOFRAN ODT) 4 mg disintegrating tablet Take 1 tablet by mouth every 8 hours as needed for nausea/vomiting. Yes Ibuprofen 200 mg cap Take by mouth every 6 hours as needed for pain. Yes phenylephrine HCl/acetaminophn (EXCEDRIN SINUS HEADACHE ORAL) Take by mouth as needed (headache). Yes acetaminophen (TYLENOL) 325 mg tablet Take 650 mg by mouth every 6 hours as needed. Yes No medication comments found. ALLERGIES Allergen Reactions Pamprin Multi-Sympt* Rash, Itching, Shortness of Breath Severe itching all over body, slight rash, hyper ventilating, lips swelled badly Buspar [Buspirone] Mental Status Change Caused suicidal thoughts Escitalopram Intolerance Codeine Hives, Itching Lamotrigine Hives Nitrofurantoin Macr* Unknown Promethazine-Phenyl* Intolerance Make her feel like passing out Objective PHYSICAL EXAM: General: alert and oriented (x3) and healthy appearance. Pertinent negatives noted - not distressed. Skin: normal color, no rash or lesions. HEENT: EOM intact and pupils equal round. Pertinent negatives noted - no carotid bruit. Cardiovascular: regular rate and rhythm, normal S1 and S2, no rub, murmurs, or gallop. Respiratory: normal breath sounds, no wheezes or crackles. No chest wall deformity or tenderness. Abdomen: soft. Pertinent negatives noted - not tender. Extremities: no deformity, no edema or tenderness, no joint swelling or clubbing. Neurological: normal cognition and motor skills. Gait normal. No weakness or sensory deficit. PAIN ASSESSMENT: Pain Pain Level: 5 Pain Location: Shoulder-Right Description: Aching, Sharp, Stabbing Duration Amount of Time: 2 Duration Units: Years Frequency: Continuous Intervention/Comfort measure: Medication VITALS: BP 102/78 Pulse 85 Temp (Src) 97.1 (Temporal) Resp 14 Ht 5' 5 (1.65m) Wt 127 lb (57.6kg) SpO2 98% LMP 05/07/2009 BMI 21.13 kg/(m^2). Diagnostic tests reviewed for today's visit: Lab Value Units Date High Low HB 14.2 g/dL 07/13/2024 15.5 11.5 HCT 41.9 % 07/13/2024 46.0 36.0 WBC 9.85 k/uL 07/13/2024 11.00 3.70 PLT 308 k/uL 07/13/2024 400 150 NA 141 mmol/L 07/13/2024 144 136 K 4.3 mmol/L 07/13/2024 5.1 3.7 GLUC 68 mg/dL 07/13/2024 99 74 BUN 8 mg/dL 07/13/2024 21 7 CREAT 0.79 mg/dL 07/13/2024 0.96 0.58 PTSEC No results within date range. INR No results within date range. APTT No results within date range. ALT 18 U/L 07/13/2024 38 7 AST 21 U/L 07/13/2024 35 13 TBILI <0.2 mg/dL 07/13/2024 1.3 0.2 TSH No results within date range. Lab Value Units Date High Low HCGQT No results within date range. UHCG No results within date range. HCG, BODY* No results within date range. Lab Value Units Date High Low ABORHD No results within date range. ABSCREEN No results within date range. No results found for: HBA1C No results found for this or any previous visit (from the past 8760 hours). No results found for this or any previous visit (from the past 34354 hours). Instructions Given to Patient: Instructions located in the after visit summary. Patient given verbal and written preop instructions and voices comprehension and compliance. SIGNATURE: Sharmin Quinteros APRN.CNP PATIENT NAME: Pat Knight DATE: September 28, 2024 TIME: 9:10 AM PAGER/CONTACT #: T [facility] 09-28-2024 History and physical note Images from the original note were not included. [facility] HISTORY AND PHYSICAL EXAMINATION SERVICE DATE: 09/28/2024 SERVICE TIME: 9:45 AM PRIMARY CARE PHYSICIAN: Maile Norman MD Assessment Patient has the following medical conditions which may affect samir-operative course: Insomnia Assessment: rx as needed Migraines Assessment: rx as needed Personal history of congestive heart failure Assessment: during , followed cardiology for 6 mos following delivery and discharged from cardiology, no further issues/symptoms Tobacco use disorder Assessment: 1ppd, denies asthma or COPD, lungs CTA, pulse ox 98% on RA Hepatitis C virus infection without hepatic coma Assessment: hx tx Albumin (g/dL) Date Value 07/13/2024 3.8 (L) Bilirubin, Total (mg/dL) Date Value 07/13/2024 <0.2 (L) Bilirubin, Conjug (mg/dL) Date Value 12/25/2015 <0.2 Alkaline Phosphatase (U/L) Date Value 07/13/2024 67 AST (U/L) Date Value 07/13/2024 21 ALT (U/L) Date Value 07/13/2024 18 Protein, Total (g/dL) Date Value 07/13/2024 5.9 (L) Attention deficit hyperactivity disorder (ADHD), predominantly inattentive type Assessment: hx, no current tx Depression Assessment: stable on rx per pt Marijuana use Assessment: daily flower, instructed to withhold prior to surgery, pt verbalized understanding. ANESTHESIA FINDINGS: Intubation History: No history of difficult intubation Significant Anesthesia Considerations: none Airway History: No history of difficult airway [place] Activity Status Index: METS: Climb a flight of stairs or walk up a hill (5.50 METs) DASI Score: 5.5 Patient denies any chest pain or undue shortness of breath with the above physical activity. Clinical Frailty Scale: 2. Well STOP-Bang Score: Snores loudly Denies feeling tired, fatigued, or sleepy during the daytime Has not been observed to stop breathing or choking/gasping during sleep Denies having high blood pressure BMI less than or equal to 35 kg/m^2 Patient 50 years old or younger Does not have a large neck Non-male patient STOP-Bang Score: 1 [id number] Score: Age: <65 Sex: female CHF history: No Hypertension history: No Stroke/TIA/thromboembolism history: No Vascular disease history: No Diabetes history: No [id number] Score: 1 ARISCAT Score: Age: <=50 Preoperative SpO2: >=96% Respiratory infection in the last month: No Preoperative anemia: No Surgical incision: peripheral Duration of surgery: <2 hrs Emergency procedure: No ARISCAT Score: 0 I - PHYSICAL EVALUATION AIRWAY Patient intubated: No. Tracheostomy tube not present Mallampati: II. TM distance: >3 FB. Neck ROM: full ROM without neurological symptoms. Mouth opening: adequate. Short neck: no. Thick neck: no Pradhan present: no Lip Bite Test: I Microretrognathia/Micronagthia/Recesse d Chin: No DENTAL Dental findings: teeth intact. Dentures, upper: partial. II - ANESTHESIA PLAN Anesthetic Plan: other Beta Mariya Monitoring Plan Post Procedure Analgesic Plan Prepared for Surgery: optimally prepared for surgery. CONSULTS: Patient does not require consults for optimization at this time Planned Anesthetic: other anesthesia choice The Following Tests/Procedures Have Been Initiated: No orders of the defined types were placed in this encounter. REASON FOR VISIT: Pat Knight is a 44 year old female who is scheduled for Procedure(s): ARTHROSCOPY SHOULDER (Right) at the request of Dr. Louis Valencia for consultation. My final recommendation will be communicated back to the requesting physician by way of shared medical record or letter. Subjective The patient has the following: COVID-19 Immunization Status Upcoming Covid-19 Vaccine () Postponed until 03/28/2025 03/28/2024 Postponed until 03/28/2025 by Karen Shore LPN (Declined at this time) 09/09/2023 Postponed until 09/08/2024 by Adelina Porras MA (Declined at this time) 01/10/2023 Postponed until 01/11/2024 by Karen Shore LPN (Declined at this time) Only the first 3 history entries have been loaded, but more history exists. CHIEF COMPLAINT: Pre-op exam HPI: Pat Knight is a 44 year old seen for PAC due to scheduled above surgery because s/p right rotator cuff repair. 09/14/2024, Dr. Louis Valencia Pat is a 44-year-old female with a history of right shoulder pain, presenting for follow-up. Right Shoulder Pain: - Persistent right shoulder pain since 09/29/2022. - No improvement following corticosteroid injection; reports increased soreness 4 days post-injection. - Pain described as a strain rather than stabbing. - Pain localized to the rotator cuff area, with no tenderness in the muscle or incision site. - Denies significant swelling post-surgery. - Hesitant about undergoing another surgery due to concerns about the healing process. - No history of shoulder pain prior to the injury. - Current smoker; was smoking at the time of the initial surgery. - Denies diabetes mellitus. REVIEW OF SYSTEMS: General: No weight loss, malaise or fevers. Neurological: Positive for: headaches. Negative for: cerebral palsy, MEDICAL CODING TECHNICIAN tumor, dementia, impaired sensorium, multiple sclerosis, Parkinson's disease, peripheral neuropathy, seizures, TIA and strokes. Respiratory: Positive for: tobacco use (1ppd). Negative for: asthma, COPD, current cough, dyspnea, pneumonia within 6 weeks, URI < 2 weeks and obstructive sleep apnea. Cardiovascular: No history of HTN requiring medication, no history of angina, CHF, SC, cardiac surgery or stents. Denies rest pain, gangrene or revascularization/amputation for PVD. No history of cardiovascular symptoms or problems. GI: Positive for: liver disease (hx tx) Negative for: abdominal pain, dysphagia, GERD, hepatitis, irritable bowel syndrome, inflammatory bowel disease, nausea, pancreatitis, vomiting and ETOH >2 drinks/day. : No history of dysuria, frequency or incontinence, stones or chronic kidney disease. No difficulty urinating, nocturia > 1 time per night or hematuria. 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 Endocrine: No history of diabetes. Has not taken steroids within the past 30 days. No history of endocrinological symptoms or problems. Hematology: No history of bleeding or clotting disorder. Patient is not taking anti-coagulation or platelet medications. No history of hematological symptoms or problems. Oncology: No history of CA metastasis, chemo within 30 days, or radiotherapy within 90 days. No history of oncological symptoms or problems. Psych: Positive for: anxiety (rx as needed) and Marijuana Use. Product type: Flower. Route of administration: Inhalation. Frequency: Daily. Musculoskeletal: See HPI. Skin: Negative for lesions, rash and itching. Implanted Devices: No implanted devices. PAST MEDICAL HISTORY Diagnosis Date Abdominal pain, unspecified site Abnormal glandular Papanicolaou smear of cervix 04/08/2006 Abn. 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 No issues in 16 years Depression Diarrhea Irritable bowel syndrome Mental disorders complicating , childbirth, or the puerperium DEPRESSION Migraine, unspecified, with intractable migraine, so stated, without mention of status migrainosus Other and unspecified ovarian cyst PMH - PAST MEDICAL HISTORY OF Narcotic dependence requiring rehab in 2006 Temporomandibular joint disorders, unspecified PAST SURGICAL HISTORY Procedure Laterality Date ADENOIDECTOMY PRIMARY <AGE 14 Adenoidectomy COLPOSCOPY CERVIX UPPER/ADJACENT VAGINA Colposcopy DILATION & CURETTAGE DX&/THER NONOBSTETRIC 06/27/2000 Dilation & curettage,TAB ESOPHAGOGASTRODUODENOSCOPY TRANSORAL DIAGNOSTIC 11/01/2011 EGD [facility] inpt H-pylori negative LIG/TRNSXJ FLP TUBE ABDL/VAG APPR UNI/BI 04/09/2006 Tubal ligation MYRINGOTOMY ASPIR&/EUSTACHIAN TUBE NFLTJ ANES 06/27/1994 Myringotomy/tubes OOPHORECTOMY PARTIAL/TOTAL UNI/BI left REPAIR ROTATOR CUFF,ACUTE Right 2023 TONSILLECTOMY PRIMARY/SECONDARY <AGE 14 06/27/1987 Tonsillectomy FAMILY HISTORY Problem Relation Age of Onset Psychiatry Mother DEPRESSION Hypertension Father Cervical Cancer Maternal Grandmother Hypertension Maternal Grandmother Cancer Maternal Grandfather BLADDER Heart Maternal Grandfather SC & EMPHYSEMA Social History Tobacco Use Smoking status: Every Day Current packs/day: 1.00 Average packs/day: 1 pack/day for 30.0 years (30.0 ttl pk-yrs) Types: Cigarettes Smokeless tobacco: Never Vaping Use Vaping status: Never Used Substance Use Topics Alcohol use: No Drug use: Yes Types: Marijuana Comment: daily Prior to Admission medications as of 09/28/24 0911 Medication Sig Last Dose Taking oxyCODONE-acetaminophen (PERCOCET) 5-325 mg tablet Take 1 tablet by mouth every 6 hours as needed for pain for up to 14 days. Patient should start on September 17, 2024. Yes gabapentin (NEURONTIN) 300 mg capsule Take 1 capsule by mouth three times a day for 90 days. Yes meloxicam (MOBIC) 15 mg tablet Take 1 tablet by mouth once daily. With food. Yes estradiol (ESTRACE) 0.01 % (0.1 mg/gram) vaginal cream Use 0.5g vaginally at bedtime for 2 weeks then 1-3 time/weeks for maintenance. Yes traZODone (DESYREL) 100 mg tablet Take 1 tablet by mouth daily at bedtime. Yes albuterol HFA (PROVENTIL HFA, VENTOLIN HFA) 90 mcg/actuation inhaler Inhale 2 Puffs as instructed every 4 hours as needed for wheezing/shortness of breath. Yes lidocaine (LIDODERM) 5 % Apply 1 Patch as directed every 24 hours. Wear patch for 12 hours and then remove for 12 hours prior to placing new patch, apply to the right shoulder area. Yes tiZANidine (ZANAFLEX) 4 mg tablet Take 1 tablet by mouth every 6 hours as needed. For muscle tightness/pain (muscle relaxer) Yes ondansetron orally disintegrating (ZOFRAN ODT) 4 mg disintegrating tablet Take 1 tablet by mouth every 8 hours as needed for nausea/vomiting. Yes Ibuprofen 200 mg cap Take by mouth every 6 hours as needed for pain. Yes phenylephrine HCl/acetaminophn (EXCEDRIN SINUS HEADACHE ORAL) Take by mouth as needed (headache). Yes acetaminophen (TYLENOL) 325 mg tablet Take 650 mg by mouth every 6 hours as needed. Yes No medication comments found. ALLERGIES Allergen Reactions Pamprin Multi-Sympt* Rash, Itching, Shortness of Breath Severe itching all over body, slight rash, hyper ventilating, lips swelled badly Buspar [Buspirone] Mental Status Change Caused suicidal thoughts Escitalopram Intolerance Codeine Hives, Itching Lamotrigine Hives Nitrofurantoin Macr* Unknown Promethazine-Phenyl* Intolerance Make her feel like passing out Objective PHYSICAL EXAM: General: alert and oriented (x3) and healthy appearance. Pertinent negatives noted - not distressed. Skin: normal color, no rash or lesions. HEENT: EOM intact and pupils equal round. Pertinent negatives noted - no carotid bruit. Cardiovascular: regular rate and rhythm, normal S1 and S2, no rub, murmurs, or gallop. Respiratory: normal breath sounds, no wheezes or crackles. No chest wall deformity or tenderness. Abdomen: soft. Pertinent negatives noted - not tender. Extremities: no deformity, no edema or tenderness, no joint swelling or clubbing. Neurological: normal cognition and motor skills. Gait normal. No weakness or sensory deficit. PAIN ASSESSMENT: Pain Pain Level: 5 Pain Location: Shoulder-Right Description: Aching, Sharp, Stabbing Duration Amount of Time: 2 Duration Units: Years Frequency: Continuous Intervention/Comfort measure: Medication VITALS: BP 102/78 Pulse 85 Temp (Src) 97.1 (Temporal) Resp 14 Ht 5' 5 (1.65m) Wt 127 lb (57.6kg) SpO2 98% LMP 05/07/2009 BMI 21.13 kg/(m^2). Diagnostic tests reviewed for today's visit: Lab Value Units Date High Low HB 14.2 g/dL 07/13/2024 15.5 11.5 HCT 41.9 % 07/13/2024 46.0 36.0 WBC 9.85 k/uL 07/13/2024 11.00 3.70 PLT 308 k/uL 07/13/2024 400 150 NA 141 mmol/L 07/13/2024 144 136 K 4.3 mmol/L 07/13/2024 5.1 3.7 GLUC 68 mg/dL 07/13/2024 99 74 BUN 8 mg/dL 07/13/2024 21 7 CREAT 0.79 mg/dL 07/13/2024 0.96 0.58 PTSEC No results within date range. INR No results within date range. APTT No results within date range. ALT 18 U/L 07/13/2024 38 7 AST 21 U/L 07/13/2024 35 13 TBILI <0.2 mg/dL 07/13/2024 1.3 0.2 TSH No results within date range. Lab Value Units Date High Low HCGQT No results within date range. UHCG No results within date range. HCG, BODY* No results within date range. Lab Value Units Date High Low ABORHD No results within date range. ABSCREEN No results within date range. No results found for: HBA1C No results found for this or any previous visit (from the past 8760 hours). No results found for this or any previous visit (from the past 51938 hours). Instructions Given to Patient: Instructions located in the after visit summary. Patient given verbal and written preop instructions and voices comprehension and compliance. SIGNATURE: Sharmin Quinteros APRN.CNP PATIENT NAME: Pat Knight DATE: September 28, 2024 TIME: 9:10 AM PAGER/CONTACT #: documented in this encounter [facility] 09-28-2024 Instructions Sharmin Quinteros APRN.DISABILITY MANAGER - 09/28/2024 9:09 AM EDT Images from the original note were not included. [facility] PATIENT PREOPERATIVE INSTRUCTIONS Louis Valencia,* has scheduled you for your procedure at this surgery center: [facility]: [phone] -- [address] [facility] [address]. Please read below carefully for your personalized instructions. Dietary Restrictions: - No solid food after midnight. - You may have 12 ounces of clear liquids (water, clear juices such as apple juice or gatorade, carbonated beverages, clear tea, black coffee, jello) until 2 hours before scheduled arrival at facility. Medications: Unless instructed differently below, stay on all of your medications until your surgery. If you start any new medications after today's visit, please contact your surgeon. Pre-Surgery Med Instructions Medication Instructions oxyCODONE-acetaminophen (PERCOCET) 5-325 mg tablet Continue as needed gabapentin (NEURONTIN) 300 mg capsule If you normally take this medication in the morning, take the morning of surgery. meloxicam (MOBIC) 15 mg tablet Hold 7 days before surgery. Last dose 10/04/2024. estradiol (ESTRACE) 0.01 % (0.1 mg/gram) vaginal cream Do not take the day of surgery traZODone (DESYREL) 100 mg tablet Do not take the day of surgery albuterol HFA (PROVENTIL HFA, VENTOLIN HFA) 90 mcg/actuation inhaler If you normally take this medication in the morning, take the morning of surgery. lidocaine (LIDODERM) 5 % Do not take the day of surgery tiZANidine (ZANAFLEX) 4 mg tablet Continue as needed ondansetron orally disintegrating (ZOFRAN ODT) 4 mg disintegrating tablet Continue as needed Ibuprofen 200 mg cap Hold 7 days before surgery. Last dose 10/04/2024. phenylephrine HCl/acetaminophn (EXCEDRIN SINUS HEADACHE ORAL) Do not take the day of surgery acetaminophen (TYLENOL) 325 mg tablet Continue as needed If you start any new medications after today's visit, please contact the surgeon's office. If you are currently using a [id number] injectable or oral medication for diabetes or weight loss such as Dulaglutide (Trulicity), Exenatide (Byetta, Bydureon), Liraglutide (Victoza, Saxenda), Semaglutide (Ozempic, Wegovy, Rybelsus), or Tirzepatide (Mounjaro), the medicine should be stopped at least 7 days before surgery. These medicines can cause food to remain in your stomach for a very long time and increase the risks from surgery and anesthesia. Not stopping the medication for a long enough time may result in your surgery being rescheduled. Blood Thinning Medications: - Stop NSAIDS (Ibuprofen, Advil, Aleve, Motrin, Celebrex, Mobic, etc.) 7 days before surgery, as directed by your surgeon. - Stop Aspirin 7 days before surgery, as directed by your surgeon. - Stop ALL herbal and dietary supplements 7 days before surgery. - You may take Tylenol (Acetaminophen) or any of your pain medications that do not contain aspirin or NSAIDS as needed. Important Reminders: - Candy, mints, and tobacco products are NOT permitted the morning of surgery. - Hearing aids, dentures and glasses may be worn the morning of surgery. - NO jewelry, body piercings, makeup, hairpins or contacts are to be worn the day of surgery. If you develop symptoms such as a fever, cold, or flu, or have other changes to your health within TWO DAYS of scheduled surgery or the morning of surgery, please contact the surgery center above. Personal Belongings: -Please have photo ID and insurance cards. -If you do not have a copy of advance directives on file with us, please bring a copy with you on the day of surgery. - Leave ALL valuables and money at home or with family members. - Please bring high-quality footwear, such as sneakers, to the hospital for ambulating post-surgery. For Outpatient Procedures: - YOU MUST HAVE A RESPONSIBLE CLEAN ROOM OPERATOR TAKE YOU HOME. A SYSTEMS TECHNOLOGIST OR MANAGER CORPORATE RESPONSIBILITY CANNOT BE MADE A RESPONSIBLE CLEAN ROOM OPERATOR. - We recommend that a responsible person stays with you overnight to take care of you. - You cannot stay in a hotel alone after outpatient surgery. You will not be permitted to have your surgery, if you do not have someone to take care of you. Arrival Time for Surgery: - The Surgery Center or hospital where you are having surgery will call the afternoon before surgery (or Tuesday for Tuesday surgery) with a scheduled arrival time. - If you have not heard by 4 pm, please contact the surgery center above. Please be aware that emergency situations arise, which may delay or change your surgical time. If this happens, we will notify you as soon as possible and regret any inconvenience. If you already have an Advance Directive, please fax a copy to [phone] or email to for it to be added to your chart. If you do not have an Advance Directive, you can find the appropriate form and more information at [email or web address]. We recommend that you complete the Advance Directive form found on the website and bring it with you the day of your surgery. It can be witnessed and scanned into your chart that day. Sharmin Quinteros APRN.LUIS DANIEL documented in this encounter [facility] 09-27-2024 Telephone encounter Note Pt called in checking on medication refills. I let her know that Dr Norman is out of the office on . She had previous nurse forward message from Sam Khan Workers Compensation Defense Attorney to Dr Norman when she found out she was off. I let her know she sent I to the provider. [facility] 09-27-2024 Telephone encounter Note Patient calls to check on status of request for refill of percocet and xanax. Patient asking to forward to PCP since Sam is out of the office the rest of the week. Patient specifically asking for a prescription of percocet to get her through the which is the day before her surgery and a few xanax to calm her nerves related to the upcoming surgery. Forwarding request to Dr. Norman as requested. Violeta Howard RN [facility] 09-21-2024 History of Present illness Narrative Radiology Service Progress Note PATIENT NAME: Pat Knight DATE OF SERVICE: September 21, 2024 TIME: 9:17 AM PATIENT IDENTITY VERIFICATION COMPLETED USING TWO (2) IDENTIFIERS: Name and Date of confirmed by patient verbally. FALL SCREENING: Has the patient had 2 falls in the last year or 1 fall with injury or currently using an Ambulatory Assistive Device (Walker, Cane, Wheelchair, Crutches, etc.)? No PATIENT GENDER DATA: Assigned female at . status: : No status: NO. PATIENT RELEVANT IMPLANT DATA REVIEWED: Not Applicable PATIENT PRESENTS WITH AN IMPLANTABLE OR ATTACHED SECRETARY BOOK KEEPER: No RADIOLOGY DEPARTMENT: General X-ray: Exam(s) Completed: Pelvis X-Ray: Pelvis with Hip Bilateral PERIPHERAL IV DATA: Not applicable SIGNED BY: RT Verónica(R) September 21, 2024 9:17 AM documented in this encounter [facility] 09-21-2024 Note [facility] 09-21-2024 Note [facility] 09-21-2024 History of Present illness Narrative Images from the original note were not included. SUBJECTIVE Pat Knight is a 44 year old female here today for a check up on her medical problems. Chief Complaint Patient presents with: Abdominal Pain: lower right abdomen described it as a pinching pain at times. On going since treated for pneumonia kirsten 2023 TALIA Stewart is a 44-year-old female presenting with persistent glandular swelling and discomfort in the right lower abdomen and leg. Pat reports persistent swelling in a gland since a previous episode of pneumonia. The discomfort is in the right lower abdomen and leg. She describes the discomfort as a pinching sensation that is not severe but uncomfortable. The pinching is intermittent and sometimes causes significant discomfort, although she notes that her Percocet medication helps manage the pain. The discomfort is primarily located in the right lower abdomen and extends down to the knee. She notes that the discomfort is relieved when her leg is extended backward or forward but is more pronounced when the leg is in a neutral position. She has not tried any heat or ice therapy for the discomfort. Pat denies any recent fever, chills, nausea, vomiting, or diarrhea. She did experience a mild fever last week, but it has since resolved, and she feels fine this week. She mentions that her household was sick, but she did not think much of it. She denies any issues with bowel movements or nausea. Pat is also scheduled for a right shoulder surgery on October 12. She is concerned about her pain medication management post-surgery and wants to ensure that her current prescription is adjusted accordingly. She anticipates needing a higher dose of pain medication immediately after the surgery but expresses a strong desire to wean off the medication as soon as possible. She acknowledges that her previous shoulder surgery did not heal properly because she resumed activities too soon, such as cleaning and putting her hair up in a ponytail. This time, she plans to take a more cautious approach to her recovery. The patient consented to the use of [employer] software for draft documentation of the visit consistent with [facility] s Notice of Privacy Practices. Her medications were reviewed today and her list is now up to date. Medications Current Outpatient Medications Medication Sig oxyCODONE-acetaminophen (PERCOCET) 5-325 mg tablet Take 1 tablet by mouth every 6 hours as needed for pain for up to 14 days. Patient should start on September 17, 2024. gabapentin (NEURONTIN) 300 mg capsule Take 1 capsule by mouth three times a day for 90 days. meloxicam (MOBIC) 15 mg tablet Take 1 tablet by mouth once daily. With food. estradiol (ESTRACE) 0.01 % (0.1 mg/gram) vaginal cream Use 0.5g vaginally at bedtime for 2 weeks then 1-3 time/weeks for maintenance. traZODone (DESYREL) 100 mg tablet Take 1 tablet by mouth daily at bedtime. albuterol HFA (PROVENTIL HFA, VENTOLIN HFA) 90 mcg/actuation inhaler Inhale 2 Puffs as instructed every 4 hours as needed for wheezing/shortness of breath. lidocaine (LIDODERM) 5 % Apply 1 Patch as directed every 24 hours. Wear patch for 12 hours and then remove for 12 hours prior to placing new patch, apply to the right shoulder area. tiZANidine (ZANAFLEX) 4 mg tablet Take 1 tablet by mouth every 6 hours as needed. For muscle tightness/pain (muscle relaxer) ondansetron orally disintegrating (ZOFRAN ODT) 4 mg disintegrating tablet Take 1 tablet by mouth every 8 hours as needed for nausea/vomiting. Ibuprofen 200 mg cap Take by mouth every 6 hours as needed for pain. phenylephrine HCl/acetaminophn (EXCEDRIN SINUS HEADACHE ORAL) Take by mouth as needed (headache). acetaminophen (TYLENOL) 325 mg tablet Take 650 mg by mouth every 6 hours as needed. No current facility-administered medications for this visit. ALLERGIES Allergen Reactions Pamprin Multi-Sympt* Rash, Itching, Shortness of Breath Severe itching all over body, slight rash, hyper ventilating, lips swelled badly Buspar [Buspirone] Mental Status Change Caused suicidal thoughts Escitalopram Intolerance Codeine Hives, Itching Lamotrigine Hives Nitrofurantoin Macr* Unknown Promethazine-Phenyl* Intolerance Make her feel like passing out ACTIVE PROBLEM LIST Bicipital Tendinitis of Right Shoulder - 09/05/2023 Pre-Op Exam - 08/18/2023 Bicipital Tendonitis of Right Shoulder - 08/18/2023 H/O Chronic Hepatitis - 08/18/2023 Marijuana Use - 08/18/2023 Migraines - 08/18/2023 Congestive Heart Failure (Hcc) - 08/18/2023 Comment: during Tobacco Use Disorder - 04/30/2023 Insomnia - 01/26/2017 Hepatitis C Virus Infection Without Hepatic Coma - 06/15/2016 Add (Attention Deficit Hyperactivity Disorder, Inattentive Type) - 09/19/2013 Depression Anxiety Diarrhea Allergic Rhinitis, Cause Unspecified - 04/05/2006 Social History Tobacco Use Smoking status: Every Day Current packs/day: 1.00 Average packs/day: 1 pack/day for 30.0 years (30.0 ttl pk-yrs) Types: Cigarettes Smokeless tobacco: Never Vaping Use Vaping status: Never Used Substance Use Topics Alcohol use: No Drug use: Yes Types: Marijuana Comment: daily Review of Systems Respiratory: Negative. Cardiovascular: Negative. Gastrointestinal: Negative for constipation, diarrhea, nausea and vomiting. OBJECTIVE BP 110/70 Pulse 98 Wt 124 lb 9 oz (56.5kg) SpO2 98% LMP 05/07/2009 Physical Exam Vitals and nursing note reviewed. Constitutional: General: She is awake. She is not in acute distress. Appearance: Normal appearance. She is well-developed and well-groomed. She is not ill-appearing, toxic-appearing or diaphoretic. HENT: Head: Normocephalic. Right Ear: External ear normal. Left Ear: External ear normal. Nose: Nose normal. Eyes: General: Vision grossly intact. Conjunctiva/sclera: Conjunctivae normal. Pupils: Pupils are equal, round, and reactive to light. Neck: Vascular: No JVD. Trachea: Trachea normal. Cardiovascular: Pulses: Normal pulses. Pulmonary: Effort: Pulmonary effort is normal. No accessory muscle usage, prolonged expiration or respiratory distress. Musculoskeletal: Cervical back: Neck supple. Right hip: Tenderness present. No deformity, lacerations, bony tenderness or crepitus. Normal range of motion. Normal strength. Legs: Comments: Pain is more localized to the anterior hip joint. Skin: General: Skin is warm and dry. Capillary Refill: Capillary refill takes less than 2 seconds. Neurological: General: No focal deficit present. Mental Status: She is alert and oriented to person, place, and time. Mental status is at baseline. Psychiatric: Attention and Perception: Attention and perception normal. Mood and Affect: Mood and affect normal. Speech: Speech normal. Behavior: Behavior normal. Behavior is cooperative. Thought Content: Thought content normal. Cognition and Memory: Cognition and memory normal. Judgment: Judgment normal. ASSESSMENT/PLAN: 1. Right hip pain (M25.551) Localized tenderness over the hip joint, with pain radiating from the top of the hip down to the knee. Pain is relieved by certain leg movements. Differential diagnoses include hip arthritis and muscle strain. - Ordered bilateral hip X-ray to evaluate for arthritis or other abnormalities. - Results expected next week; will follow up with patient once available. 2. Chronic right shoulder pain (M25.511) S/P shoulder surgery (Z98.890) Scheduled for right shoulder surgery on October 12 to reattach tendons and ligaments. Previous surgery did not allow adequate healing time, leading to current issues. - Patient will manage post-operative pain with current medications; will coordinate with Dr. Hillman for pain management post-surgery. - Patient intends to wean off pain medications as soon as feasible post-surgery. - Advised patient to use a sling post-operatively to aid in recovery and prevent overuse. Portions of this note have been entered by ancillary staff. I have reviewed and when necessary edited, so that they are an adequate record of my encounter with this patient Please note that parts of this document were created using voice recognition software and therefore may contain grammatical errors. Patient verbalizes understanding of instructions from today's visit and in agreement with treatment plan. Questions answered. Agrees to call the office if questions, concerns of issues with acute symptoms not improving or if they worsen. See diagnoses and orders for additional plan(s). Allergies and medications were reviewed, list was updated, and refills given if needed. Past medical, surgical, social, and family history reviewed and updated as appropriate. Encouraged proper diet & exercise as well as compliance with taking medications. Age-appropriate health preventative measures were discussed. Return if symptoms worsen or fail to improve, for Keep next scheduled appointment.. Sam Khan APRN-LUIS DANIEL documented in this encounter [facility] 09-14-2024 Note [facility] 09-14-2024 History of Present illness Narrative Images from the original note were not included. PAIN EVALUATION 09/14/2024 1337 Pain Level: 5 Pain Location: Shoulder-Right Description: Dull;Radiating Duration Amount of Time: -- ongoing Frequency: Continuous Intervention/Comfort measure: Medication;Reposition;Relaxation;Cold Encounter Diagnosis ICD-10-CM 1. Right shoulder pain, unspecified chronicity M25.511 2. S/P right rotator cuff repair Z98.890 Pat is a 44-year-old female with a history of right shoulder pain, presenting for follow-up. Right Shoulder Pain: - Persistent right shoulder pain since 09/29/2022. - No improvement following corticosteroid injection; reports increased soreness 4 days post-injection. - Pain described as a strain rather than stabbing. - Pain localized to the rotator cuff area, with no tenderness in the muscle or incision site. - Denies significant swelling post-surgery. - Hesitant about undergoing another surgery due to concerns about the healing process. - No history of shoulder pain prior to the injury. - Current smoker; was smoking at the time of the initial surgery. - Denies diabetes mellitus. EXAM: - Musculoskeletal: - Right Shoulder: - Tenderness over the superior aspect of the shoulder; no tenderness over the deltoid muscle. - Pain and strain noted with resisted abduction and forward flexion. - Minimal swelling observed. - FE: 120 deg, AB: 120 deg, ER: 60 deg, IR: 45 deg - Positive Ricardo (pain) - Pain with Speed and Drake testing - Pain with Belly Press test IMAGING: Reviewed MRI again today, no obvious failure of rotator cuff healing PLAN: 1. Right shoulder pain, unspecified chronicity (M25.511) 2. S/P right rotator cuff repair (Z98.890) - Persistent right shoulder pain despite previous conservative management including physical therapy and corticosteroid injection. - Physical examination reveals pain and weakness with abduction and external rotation. - Discussed the possibility of underlying issues not visible on MRI. - Scheduled diagnostic arthroscopy to evaluate and address potential structural abnormalities. - Educated on the importance of smoking cessation to improve healing outcomes; advised to taper down smoking prior to surgery. - Recommended initiation of Vitamin D supplementation to enhance recovery. - Patient understands and agrees with the treatment plan. SURGICAL PLAN: Pat Knight presents today with persistent right shoulder pain after rotator cuff repair that is concerning for failure of her repair. MRI is inconclusive. The current condition represents a significant risk of loss of function of the extremity due to the worsening pain and diminished use of the arm at this time. Based on my evaluation today, I do not feel that nonsurgical interventions including physical therapy, activity modification, and medical management are likely to provide this patient with an acceptable level of improvement in functional use of the arm, nor significant pain relief. After thorough review of history, examination findings, and imaging, we discussed surgical intervention today which would be diagnostic arthroscopy of the right shoulder. I described the procedure in detail as well as the expected healing time of 3-6 months and physical therapy regimen following surgery, likely for much of this time. Informed consent was discussed in detail and signed in the office today. Significant risks of surgery include general anesthesia, and those from surgery including infection, nerve injury, bleeding, procedure failure and possible need for repeat procedure. No guarantees as to the outcome of surgery were given or implied. Surgery will be scheduled for the next available date. We have made the decision to move forward with a major orthopaedic surgery today, and this represents the highest form of medical decision-making complexity. The patient's diagnosis of Right shoulder pain, unspecified chronicity (primary encounter diagnosis) S/p right rotator cuff repair represents a chronic pathology/diagnosis/injury that represents a current or possible direct threat to bodily function. Will continue to monitor patient for Right shoulder pain, unspecified chronicity (primary encounter diagnosis) S/p right rotator cuff repair, patient to schedule visit as per follow up discussed. Louis Valencia MD Shoulder & Elbow Surgeon Department of Orthopaedic Surgery [facility] documented in this encounter [facility] 09-13-2024 Telephone encounter Note The following approved medication requests have been transmitted electronically. Requested Prescriptions Signed Prescriptions Disp Refills oxyCODONE-acetaminophen (PERCOCET) 5-325 mg tablet 56 tablet 0 Sig: Take 1 tablet by mouth every 6 hours as needed for pain for up to 14 days. Patient should start on September 17, 2024. Authorizing Provider: MAILE NORMAN MD [facility] 09-13-2024 Miscellaneous Notes The following approved medication requests have been transmitted electronically. Requested Prescriptions Signed Prescriptions Disp Refills oxyCODONE-acetaminophen (PERCOCET) 5-325 mg tablet 56 tablet 0 Sig: Take 1 tablet by mouth every 6 hours as needed for pain for up to 14 days. Patient should start on September 17, 2024. Authorizing Provider: MAILE NORMAN MD Prescription Refill Information The patient has been identified by name and date of : Yes Caregiver verified no other encounters exist for this prescription request: Yes Caregiver confirmed with patient/requestor that no other refills are due, in the near future, with this provider at this time: Yes The last office visit in the department: 07/31/2024 Does the patient have a future office visit with this provider/department: Yes, 11/02/2024 Requested Prescriptions Pending Prescriptions Disp Refills oxyCODONE-acetaminophen (PERCOCET) 5-325 mg tablet 56 tablet 0 Sig: Take 1 tablet by mouth every 6 hours as needed for pain for up to 14 days. May fill today due to needing to leave town for family emergency MALENA Diaz September 13, 2024 7:40 AM documented in this encounter [facility] 09-13-2024 Telephone encounter Note Prescription Refill Information The patient has been identified by name and date of : Yes Caregiver verified no other encounters exist for this prescription request: Yes Caregiver confirmed with patient/requestor that no other refills are due, in the near future, with this provider at this time: Yes The last office visit in the department: 07/31/2024 Does the patient have a future office visit with this provider/department: Yes, 11/02/2024 Requested Prescriptions Pending Prescriptions Disp Refills oxyCODONE-acetaminophen (PERCOCET) 5-325 mg tablet 56 tablet 0 Sig: Take 1 tablet by mouth every 6 hours as needed for pain for up to 14 days. May fill today due to needing to leave town for family emergency MALENA Diaz September 13, 2024 7:40 AM [facility] 08-31-2024 Telephone encounter Note The following approved medication requests have been transmitted electronically. Requested Prescriptions Signed Prescriptions Disp Refills oxyCODONE-acetaminophen (PERCOCET) 5-325 mg tablet 56 tablet 0 Sig: Take 1 tablet by mouth every 6 hours as needed for pain for up to 14 days. May fill today due to needing to leave town for family emergency Patient should start on September 03, 2024. Authorizing Provider: MAILE NORMAN MD [facility] 08-31-2024 Miscellaneous Notes The following approved medication requests have been transmitted electronically. Requested Prescriptions Signed Prescriptions Disp Refills oxyCODONE-acetaminophen (PERCOCET) 5-325 mg tablet 56 tablet 0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 days. Patient should start on July 24, 2024. Authorizing Provider: MAILE NORMAN MD The patient has been identified by name and date of : Yes Caregiver verified no other encounters exist for this prescription request: Yes Caregiver confirmed with patient/requestor that no other refills are due, in the near future, with this provider at this time: Yes The last office visit in the department: 07/13/2024 Does the patient have a future office visit with this provider/department: Yes 07/31/2024 Requested Prescriptions Pending Prescriptions Disp Refills oxyCODONE-acetaminophen (PERCOCET) 5-325 mg tablet 56 tablet 0 Sig: Take 1 tablet by mouth every 6 hours as needed for pain for up to 14 days. Amber Minaya LPN July 20, 2024 8:44 AM documented in this encounter [facility] 07-20-2024 Telephone encounter Note The patient has been identified by name and date of : Yes Caregiver verified no other encounters exist for this prescription request: Yes Caregiver confirmed with patient/requestor that no other refills are due, in the near future, with this provider at this time: Yes The last office visit in the department: 07/13/2024 Does the patient have a future office visit with this provider/department: Yes 07/31/2024 Requested Prescriptions Pending Prescriptions Disp Refills oxyCODONE-acetaminophen (PERCOCET) 5-325 mg tablet 56 tablet 0 Sig: Take 1 tablet by mouth every 6 hours as needed for pain for up to 14 days. Amber Minaya LPN July 20, 2024 8:44 AM [facility] 07-19-2024 Note [facility] Medical Records Department [address] [place] [address] History Physical Exam 07/19/24 1124 MR#: [id number] Acct: [id number] Name: PAT KNIGHT Rep #: [id number] : 1980 44 From: Constanza Cordova MD PCP: Dr. Maile Norman MD Status:[facility] Location: [place] [address] History and Physical Date of Admission: 07/19/24 The patient is examined and there are no changes to the H P dated 07/13/2024 The patient presents for excision of a cyst of the left forearm. An informed consent is obtained. The patient is marked in the preop holding area. Assessment Plan Assessment/Plan (1) Neoplasm of uncertain behavior of connective and other soft tissue: PLAN: Plan For excision cyst left forearm. 07/19/24 1125 Cosigner Signature (if applicable): CC: Dr. Maile Norman MD; Dr. Constanza Cordova MD Signed [facility] 07-16-2024 Telephone encounter Note Form and office note has been faxed to number below. [facility] 07-16-2024 Miscellaneous Notes Form and office note has been faxed to number below. Ok will send today. Nguyen with [facility] with Dr Cordova called in and reports Pt had an appointment with Karen Gaspar on 07/13/24. She states Pt brought in medical clearance form for provider to fill out. They need the medical clearance form and OV note from 07/13 faxed over to # [phone]. She is asking if this can be done today as the Pt has surgery on . Otilia Douglas RN documented in this encounter [facility] 07-16-2024 Telephone encounter Note Ok will send today. [facility] 07-16-2024 Telephone encounter Note Nguyen with [facility] with Dr Cordova called in and reports Pt had an appointment with Karen Gaspar on 07/13/24. She states Pt brought in medical clearance form for provider to fill out. They need the medical clearance form and OV note from 07/13 faxed over to # [phone]. She is asking if this can be done today as the Pt has surgery on . Otilia Douglas RN [facility] 07-13-2024 History of Present illness Narrative SUBJECTIVE: Hepatitis B Vaccine(2 of 3 - Hep B Twinrix 3-dose series) due on 05/19/2016 Mammogram Screening Never done Cervical Cancer Screening due on 09/28/2022 TALIA Knight is a 44year old female. PMH significnat for ACTIVE PROBLEM LIST Allergic Rhinitis, Cause Unspecified Diarrhea Depression Anxiety Add (Attention Deficit Hyperactivity Disorder, Inattentive Type) Hepatitis C Virus Infection Without Hepatic Coma Insomnia Tobacco Use Disorder Pre-Op Exam Bicipital Tendonitis of Right Shoulder H/O Chronic Hepatitis Marijuana Use Migraines Congestive Heart Failure (Hcc) Bicipital Tendinitis of Right Shoulder Presents for preoperative visit in internal medicine prior to plastic surgery with Dr. Constanza Cordova at [facility] with date to be determined following this visit. Plan is for general anesthesia same-day surgery. Plan is for excision of cyst of left forearm approximately 2 cm in size. She is in her usual state of health today. She notes remote history of heart failure during which resolved at that time within months of her .. Followed up with cardiology for about 6 months, [facility] to resolution. No recurrence. No history of SC or CVA. No shortness of breath on exertion or chest pain, not limited in taking 2 flight of stairs, not limited in walking a flat surface. ACS NSQIP Surgical Risk Calculator Procedure CPT Code: 1. Age Group: < 65 years 2. Sex: female 3. Functional Status: Independent 4. Emergency Case: No 5. ASA Class: Mild systemic disease 6. Steroid use for chronic condition: No 7. Ascites within 30 days prior to surgery: No 8. Systemic Sepsis within 48 hours prior to surgery: None 9. Ventilator Dependent: No 10. Disseminated Cancer: No 11. Diabetes: None 12. Hypertension requiring medication: No 13. Congestive Heart Failure in 30 days prior to surgery: No 14. Dyspnea: No 15. Current Smoker within 1 Year: Yes 16. History of COPD: No 17. Dialysis: No 18. Acute Renal Failure: No 19. BMI Class Calculation: Normal Review of Systems Constitutional: Negative. Respiratory: Negative. Cardiovascular: Negative. DidObjective BP 122/85 Pulse 84 Resp 16 Wt 60 kg (132 lb 4.4 oz) [facility] 05/07/2009 BMI 21.35 kg/m Physical Exam Vitals and nursing note reviewed. Constitutional: Appearance: Normal appearance. HENT: Head: Normocephalic and atraumatic. Eyes: Conjunctiva/sclera: Conjunctivae normal. Neck: Thyroid: No thyromegaly. Vascular: Normal carotid pulses. No carotid bruit or JVD. Cardiovascular: Rate and Rhythm: Normal rate and regular rhythm. Pulses: Carotid pulses are 2+ on the right side and 2+ on the left side. Radial pulses are 2+ on the right side and 2+ on the left side. Heart sounds: Normal heart sounds. Pulmonary: Effort: Pulmonary effort is normal. Breath sounds: Normal breath sounds. Abdominal: General: Bowel sounds are normal. Palpations: Abdomen is soft. Skin: General: Skin is warm and dry. Comments: well healed laceration left forearm with small mass ~1/2 diam. mobile mildly tender Neurological: General: No focal deficit present. Mental Status: She is alert and oriented to person, place, and time. ALLERGIES Allergen Reactions Pamprin Multi-Sympt* Rash, Itching, Shortness of Breath Severe itching all over body, slight rash, hyper ventilating, lips swelled badly Buspar [Buspirone] Mental Status Change Caused suicidal thoughts Escitalopram Intolerance Codeine Hives, Itching Lamotrigine Hives Nitrofurantoin Macr* Unknown Promethazine-Phenyl* Intolerance Make her feel like passing out Medication estradiol (ESTRACE) 0.01 % (0.1 mg/gram) vaginal cream Use 0.5g vaginally at bedtime for 2 weeks then 1-3 time/weeks for maintenance. oxyCODONE-acetaminophen (PERCOCET) 5-325 mg tablet Take 1 tablet by mouth every 6 hours as needed for pain for up to 14 days. Patient should start on July 10, 2024. traZODone (DESYREL) 100 mg tablet Take 1 tablet by mouth daily at bedtime. meloxicam (MOBIC) 15 mg tablet Take 1 tablet by mouth once daily. With food. albuterol HFA (PROVENTIL HFA, VENTOLIN HFA) 90 mcg/actuation inhaler Inhale 2 Puffs as instructed every 4 hours as needed for wheezing/shortness of breath. lidocaine (LIDODERM) 5 % Apply 1 Patch as directed every 24 hours. Wear patch for 12 hours and then remove for 12 hours prior to placing new patch, apply to the right shoulder area. tiZANidine (ZANAFLEX) 4 mg tablet Take 1 tablet by mouth every 6 hours as needed. For muscle tightness/pain (muscle relaxer) ondansetron orally disintegrating (ZOFRAN ODT) 4 mg disintegrating tablet Take 1 tablet by mouth every 8 hours as needed for nausea/vomiting. Ibuprofen 200 mg cap Take by mouth every 6 hours as needed for pain. phenylephrine HCl/acetaminophn (EXCEDRIN SINUS HEADACHE ORAL) Take by mouth as needed (headache). acetaminophen (TYLENOL) 325 mg tablet Take 650 mg by mouth every 6 hours as needed. gabapentin (NEURONTIN) 300 mg capsule Take 1 capsule by mouth three times a day for 90 days. PAST MEDICAL HISTORY Diagnosis Date Abdominal pain, unspecified site Abnormal glandular Papanicolaou smear of cervix 04/08/2006 Abn. 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 No issues in 16 years Depression Diarrhea Irritable bowel syndrome Mental disorders complicating , childbirth, or the puerperium DEPRESSION Migraine, unspecified, with intractable migraine, so stated, without mention of status migrainosus Other and unspecified ovarian cyst PMH - PAST MEDICAL HISTORY OF Narcotic dependence requiring rehab in 2006 Temporomandibular joint disorders, unspecified Social History Tobacco Use Smoking status: Every Day Current packs/day: 1.00 Average packs/day: 1 pack/day for 30.0 years (30.0 ttl pk-yrs) Types: Cigarettes Smokeless tobacco: Never Vaping Use Vaping status: Never Used Substance Use Topics Alcohol use: No Drug use: Yes Types: Marijuana Comment: daily ASSESSMENT/PLAN: 1. Preop exam for internal medicine - ICD9: V72.83, ICD10: Z01.818 (primary diagnosis) She is a below average risk for this low risk procedure. No need for testing other than lab work today. She is encouraged to stop smoking for surgery for better healing. - COMPLETE BLOOD COUNT AND DIFFERENTIAL - COMPREHENSIVE METABOLIC PANEL 2. Injury of left upper extremity, subsequent encounter - ICD9: V58.89, ICD10: S49.92XD - COMPLETE BLOOD COUNT AND DIFFERENTIAL - COMPREHENSIVE METABOLIC PANEL 3. Mass of left upper extremity - ICD9: 782.2, ICD10: R22.32 - COMPLETE BLOOD COUNT AND DIFFERENTIAL - COMPREHENSIVE METABOLIC PANEL Karen Gaspar APRN.MEDICAL CODING TECHNICIAN Medical Decision Making: Problems: Moderate: 2+ stable chronic illnesses Data: Unique test(s) ordered: 2 Risk: Moderate: Decision on minor surgery w/ risk factors Medical Decision Making Level: 4 - Moderate documented in this encounter [facility] 07-13-2024 Note [facility] 07-11-2024 History of Present illness Narrative Rescheduled documented in this encounter [facility] 07-11-2024 Note HNO ID: [id number] Author: MAILE NORMAN MD Service: ? Author Type: Physician Type: Progress Notes Filed: 08/16/2024 22:36 Note Text: Rescheduled [facility] 07-09-2024 Note [facility] 07-09-2024 History of Present illness Narrative Truck Sales Manager offered: Patient declinesPrince Stewart is a 44 year old who presents for an annual gynecologic exam with complaints, vaginal dryness and pain with intercourse. 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 No issues in 16 years Depression Diarrhea Irritable bowel syndrome Mental disorders complicating , childbirth, or the puerperium DEPRESSION Migraine, unspecified, with intractable migraine, so stated, without mention of status migrainosus Other and unspecified ovarian cyst PMH - PAST MEDICAL HISTORY OF Narcotic dependence requiring rehab in 2006 Temporomandibular joint disorders, unspecified PAST SURGICAL HISTORY Procedure Laterality Date ADENOIDECTOMY PRIMARY <AGE 14 Adenoidectomy COLPOSCOPY CERVIX UPPER/ADJACENT VAGINA Colposcopy DILATION & CURETTAGE DX&/THER NONOBSTETRIC 2001 Dilation & curettage,TAB ESOPHAGOGASTRODUODENOSCOPY TRANSORAL DIAGNOSTIC 11/01/11 EGD WC inpt H-pylori negative LIG/TRNSXJ FLP TUBE ABDL/VAG APPR UNI/BI 04/09/2006 Tubal ligation MYRINGOTOMY ASPIR&/EUSTACHIAN TUBE NFLTJ ANES 1994 Myringotomy/tubes OOPHORECTOMY PARTIAL/TOTAL UNI/BI left TONSILLECTOMY PRIMARY/SECONDARY <AGE 14 1987 Tonsillectomy FAMILY HISTORY Problem Relation Age of Onset Psychiatry Mother DEPRESSION Hypertension Father Cervical Cancer Maternal Grandmother Hypertension Maternal Grandmother Cancer Maternal Grandfather BLADDER Heart Maternal Grandfather SC & EMPHYSEMA SOCIAL HISTORY Social History Tobacco Use Smoking status: Every Day Current packs/day: 1.00 Average packs/day: 1 pack/day for 30.0 years (30.0 ttl pk-yrs) Types: Cigarettes Smokeless tobacco: Never Vaping Use Vaping status: Never Used Substance Use Topics Alcohol use: No Drug use: Yes Types: Marijuana Comment: daily REVIEW OF SYSTEMS Abdomen: No abdominal pain, nausea, vomiting, diarrhea, or constipation. No bloating, early satiety, indigestion, or increased flatulence. Bladder: No dysuria, gross hematuria, urinary frequency, urinary urgency, or incontinence. Breast: No breast lumps, nipple d/c, overlying skin changes, redness or skin retraction. Allergies and current medication updated:Yes SENSITIVE EXAM: The sensitive examination was discussed with the Patient or Patient's Authorized 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. As applicable, any other physician, advance practice provider, medical student, or other health professional student that will be observing or involved in the sensitive examination for educational or training purposes was discussed with the Patient or Authorized 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. The Patient or Authorized 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 has agreed to proceed with the sensitive examination. (Sensitive examination includes inspection and/or palpation of the breasts, pelvis, prostate and anorectal regions). EXAM: BP 110/62 Ht 5' 5 (1.65m) Wt 126 lb (57.2kg) LMP 05/07/2009 BMI 20.97 kg/(m^2). GENERAL: pleasant, female in no apparent distress HEENT: Normocephalic, atraumatic, mucus membranes moist, and no lesions NECK: Supple, full range of motion, no adenopathy, and thyroid normal DERMATOLOGY: Normal, without lesions, non-icteric, and non-hirsute BREAST: soft, non-tender, symmetric, no dominant mass, normal nipple-areolar complex, no lymphadenopathy, and no nipple discharge CHEST: Normal inspiratory effort ABDOMEN: soft, non-tender, and no masses PELVIC: external genitalia normal, normal Bartholin's glands, urethra, Lathrop's glands, no vulvar lesions, no cervical lesions, good vaginal support, physiologic discharge present, normal appearing perineal body and perianal region BIMANUAL: uterus normal size, shape and consistency, no adnexal masses, and non-tender RECTOVAGINAL: deferred. NEURO: alert and oriented x3,exam grossly non-focal EXTREMITIES: normal ASSESSMENT/PLAN: 1. Encounter for gynecological examination (general) (routine) without abnormal findings - ICD9: V72.31, ICD10: Z01.419 (primary diagnosis) - Completed pap test and breast exam - Encouraged monthly BSE - Follow up for annual exam in one year. 2. Screening for cervical cancer - ICD9: V76.2, ICD10: Z12.4 - PAP TEST 3. Encounter for screening for human papillomavirus (HPV) - ICD9: V73.81, ICD10: Z11.51 - PAP TEST 4. Encounter for screening mammogram for breast cancer - ICD9: V76.12, ICD10: Z12.31 - KEYON SCREENING W TERESITA 5. Menopausal symptoms - ICD9: 627.2, ICD10: N95.1 - Estrace cream ordered - FOLLICLE STIMULATING HORMONE - ESTRADIOL-17B BLD Cecile Herndon APRN.DISABILITY MANAGER documented in this encounter [facility] 07-07-2024 Telephone encounter Note Pt notified and voiced understanding. Adelina Porras MA [facility] 07-07-2024 Miscellaneous Notes Pt notified and voiced understanding. Adelina Porras MA I am not able to do that as the completions manager doctor. Jorge Luis Ace MD Pt called in and reports her mother in law in [place], [place] just had a heart attack. She states her and he are going down there after he gets done with work tonight. She states she is going to try and get her into a usp up here. She states provider put in to have her Percocet refilled on Tue07/10/24. She is asking if provider would allow her to get it filled early. I told her another provider may not, and they could call it into as pharmacy where she goes to. Please call and advise. documented in this encounter [facility] 07-07-2024 Telephone encounter Note I am not able to do that as the completions manager doctor. Jorge Luis Ace MD [facility] Work Phone: 07-07-2024 Telephone encounter Note Pt called in and reports her mother in law in [place], [place] just had a heart attack. She states her and he are going down there after he gets done with work tonight. She states she is going to try and get her into a usp up here. She states provider put in to have her Percocet refilled on Tue07/10/24. She is asking if provider would allow her to get it filled early. I told her another provider may not, and they could call it into as pharmacy where she goes to. Please call and advise. [facility] 07-06-2024 Telephone encounter Note RX filled 06/26 per PDMP and med list and Medication Dispense History. 14 days from that date for refill date of this RX The following approved medication requests have been transmitted electronically. Requested Prescriptions Signed Prescriptions Disp Refills oxyCODONE-acetaminophen (PERCOCET) 5-325 mg tablet 56 tablet 0 Sig: Take 1 tablet by mouth every 6 hours as needed for pain for up to 14 days. Patient should start on July 10, 2024. Authorizing Provider: MAILE NORMAN MD [facility] 07-06-2024 Miscellaneous Notes RX filled 06/26 per PDMP and med list and Medication Dispense History. 14 days from that date for refill date of this RX The following approved medication requests have been transmitted electronically. Requested Prescriptions Signed Prescriptions Disp Refills oxyCODONE-acetaminophen (PERCOCET) 5-325 mg tablet 56 tablet 0 Sig: Take 1 tablet by mouth every 6 hours as needed for pain for up to 14 days. Patient should start on July 10, 2024. Authorizing Provider: MAILE NORMAN MD Last script filled on 06/23/2024. Pended Zara Jay LPN documented in this encounter [facility] 07-06-2024 Telephone encounter Note Last script filled on 06/23/2024. Pended Zara Jay LPN [facility] 07-02-2024 Telephone encounter Note Prescription Refill Information The patient has been identified by name and date of : Yes Caregiver verified no other encounters exist for this prescription request: Yes Caregiver confirmed with patient/requestor that no other refills are due, in the near future, with this provider at this time: Yes The last office visit in the department: 05/15/24 Does the patient have a future office visit with this provider/department: Yes Requested Prescriptions Pending Prescriptions Disp Refills traZODone (DESYREL) 100 mg tablet 90 tablet 3 Sig: Take 1 tablet by mouth daily at bedtime. Feli Walton LPN July 02, 2024 2:19 PM [facility] 07-02-2024 Miscellaneous Notes Prescription Refill Information The patient has been identified by name and date of : Yes Caregiver verified no other encounters exist for this prescription request: Yes Caregiver confirmed with patient/requestor that no other refills are due, in the near future, with this provider at this time: Yes The last office visit in the department: 05/15/24 Does the patient have a future office visit with this provider/department: Yes Requested Prescriptions Pending Prescriptions Disp Refills traZODone (DESYREL) 100 mg tablet 90 tablet 3 Sig: Take 1 tablet by mouth daily at bedtime. Feli Walton LPN July 02, 2024 2:19 PM documented in this encounter [facility] 06-23-2024 Telephone encounter Note The following approved medication requests have been transmitted electronically. Requested Prescriptions Signed Prescriptions Disp Refills oxyCODONE-acetaminophen (PERCOCET) 5-325 mg tablet 56 tablet 0 Sig: Take 1 tablet by mouth every 6 hours as needed for pain for up to 14 days. Patient should start on June 26, 2024. Authorizing Provider: MAILE NORMAN MD [facility] 06-23-2024 Miscellaneous Notes The following approved medication requests have been transmitted electronically. Requested Prescriptions Signed Prescriptions Disp Refills oxyCODONE-acetaminophen (PERCOCET) 5-325 mg tablet 56 tablet 0 Sig: Take 1 tablet by mouth every 6 hours as needed for pain for up to 14 days. Patient should start on June 26, 2024. Authorizing Provider: MAILE NORMAN MD Prescription Refill Information The patient has been identified by name and date of : Yes Caregiver verified no other encounters exist for this prescription request: Yes Caregiver confirmed with patient/requestor that no other refills are due, in the near future, with this provider at this time: Yes The last office visit in the department: 05/15/24 Does the patient have a future office visit with this provider/department: Yes 07/31/24 Requested Prescriptions Pending Prescriptions Disp Refills oxyCODONE-acetaminophen (PERCOCET) 5-325 mg tablet 56 tablet 0 Sig: Take 1 tablet by mouth every 6 hours as needed for pain for up to 14 days. Patient should start on June 26, 2024. Sujatha Simpson LPN June 22, 2024 3:23 PM documented in this encounter [facility] 06-23-2024 Telephone encounter Note The following approved medication requests have been transmitted electronically. Requested Prescriptions Pending Prescriptions Disp Refills meloxicam (MOBIC) 15 mg tablet 30 tablet 5 Sig: Take 1 tablet by mouth once daily. With food. Maile Norman MD [facility] 06-23-2024 Miscellaneous Notes The following approved medication requests have been transmitted electronically. Requested Prescriptions Pending Prescriptions Disp Refills meloxicam (MOBIC) 15 mg tablet 30 tablet 5 Sig: Take 1 tablet by mouth once daily. With food. Maile Norman MD Prescription Refill Information The patient has been identified by name and date of : Yes Caregiver verified no other encounters exist for this prescription request: Yes Caregiver confirmed with patient/requestor that no other refills are due, in the near future, with this provider at this time: Yes The last office visit in the department: 05/15/24 Does the patient have a future office visit with this provider/department: Yes 08/20/24 Requested Prescriptions Pending Prescriptions Disp Refills meloxicam (MOBIC) 15 mg tablet 30 tablet 5 Sig: Take 1 tablet by mouth once daily. With food. Sujatha Simpson LPN June 22, 2024 3:24 PM documented in this encounter [facility] 06-22-2024 Telephone encounter Note Prescription Refill Information The patient has been identified by name and date of : Yes Caregiver verified no other encounters exist for this prescription request: Yes Caregiver confirmed with patient/requestor that no other refills are due, in the near future, with this provider at this time: Yes The last office visit in the department: 05/15/24 Does the patient have a future office visit with this provider/department: Yes 08/20/24 Requested Prescriptions Pending Prescriptions Disp Refills meloxicam (MOBIC) 15 mg tablet 30 tablet 5 Sig: Take 1 tablet by mouth once daily. With food. Sujatha Simpson LPN June 22, 2024 3:24 PM [facility] 06-22-2024 Telephone encounter Note Prescription Refill Information The patient has been identified by name and date of : Yes Caregiver verified no other encounters exist for this prescription request: Yes Caregiver confirmed with patient/requestor that no other refills are due, in the near future, with this provider at this time: Yes The last office visit in the department: 05/15/24 Does the patient have a future office visit with this provider/department: Yes 07/31/24 Requested Prescriptions Pending Prescriptions Disp Refills oxyCODONE-acetaminophen (PERCOCET) 5-325 mg tablet 56 tablet 0 Sig: Take 1 tablet by mouth every 6 hours as needed for pain for up to 14 days. Patient should start on June 26, 2024. Sujatha Simpson LPN June 22, 2024 3:23 PM [facility] 06-15-2024 History of Present illness Narrative Radiology Service Progress Note PATIENT NAME: Pat Knight DATE OF SERVICE: June 15, 2024 TIME: 1:08 PM PATIENT IDENTITY VERIFICATION COMPLETED USING TWO (2) IDENTIFIERS: Name and Date of confirmed by patient verbally. FALL SCREENING: Has the patient had 2 falls in the last year or 1 fall with injury or currently using an Ambulatory Assistive Device (Walker, Cane, Wheelchair, Crutches, etc.)? No PATIENT GENDER DATA: Female. status: : No status: NO. PATIENT RELEVANT IMPLANT DATA REVIEWED: Yes PATIENT PRESENTS WITH AN IMPLANTABLE OR ATTACHED SECRETARY BOOK KEEPER: No RADIOLOGY DEPARTMENT: MR; Exam(s) Completed: Upper MSK: Shoulder, right PERIPHERAL IV DATA: Not applicable SIGNED BY: RT Krys(R) June 15, 2024 1:08 PM documented in this encounter [facility] 06-15-2024 Note [facility] 06-10-2024 Telephone encounter Note The following approved medication requests have been transmitted electronically. Requested Prescriptions Signed Prescriptions Disp Refills oxyCODONE-acetaminophen (PERCOCET) 5-325 mg tablet 56 tablet 0 Sig: Take 1 tablet by mouth every 6 hours as needed for pain for up to 14 days. Patient should start on June 12, 2024. Authorizing Provider: MAILE NORMAN MD [facility] 06-10-2024 Miscellaneous Notes The following approved medication requests have been transmitted electronically. Requested Prescriptions Signed Prescriptions Disp Refills oxyCODONE-acetaminophen (PERCOCET) 5-325 mg tablet 56 tablet 0 Sig: Take 1 tablet by mouth every 6 hours as needed for pain for up to 14 days. Patient should start on June 12, 2024. Authorizing Provider: MAILE NORMAN MD The patient has been identified by name and date of : Yes Caregiver verified no other encounters exist for this prescription request: Yes Caregiver confirmed with patient/requestor that no other refills are due, in the near future, with this provider at this time: Yes The last office visit in the department: 05/15/2024 Does the patient have a future office visit with this provider/department: Yes 07/31/2024 Requested Prescriptions Pending Prescriptions Disp Refills oxyCODONE-acetaminophen (PERCOCET) 5-325 mg tablet 56 tablet 0 Sig: Take 1 tablet by mouth every 6 hours as needed for pain for up to 14 days. Amber Minaya LPN June 08, 2024 9:06 AM documented in this encounter [facility] 06-08-2024 Telephone encounter Note The patient has been identified by name and date of : Yes Caregiver verified no other encounters exist for this prescription request: Yes Caregiver confirmed with patient/requestor that no other refills are due, in the near future, with this provider at this time: Yes The last office visit in the department: 05/15/2024 Does the patient have a future office visit with this provider/department: Yes 07/31/2024 Requested Prescriptions Pending Prescriptions Disp Refills oxyCODONE-acetaminophen (PERCOCET) 5-325 mg tablet 56 tablet 0 Sig: Take 1 tablet by mouth every 6 hours as needed for pain for up to 14 days. Amber Minaya LPN June 08, 2024 9:06 AM [facility] 06-05-2024 Telephone encounter Note Patient calling asking to have General surgery consult faxed to [facility] at [phone]. Printed face sheet, xray report, office notes, consult and faxed as requested. [facility] 06-05-2024 Miscellaneous Notes Patient calling asking to have General surgery consult faxed to [facility] at [phone]. Printed face sheet, xray report, office notes, consult and faxed as requested. documented in this encounter [facility] 05-29-2024 Telephone encounter Note Images from the original note were not included. Doyle Ordazary Alis Espinosa to [facility] 05/29/24 1:17 PM If patient called your office then please return the call. Next time, just have patient call [facility] or have them contact [facility] PreAccess Dept if you don't want to address patient's question because they have not been seen at [facility]. Thank you Called and spoke with the patient. Explained to the patient that because all information about her claim and appointments has not come to the [place] office we were unable to assist her when she called earlier. Told her that a message has been sent over to , Lizette Tobar PA-C and Alis regarding her call from earlier. Patient stated her and her tax associate attorney have left multiple messages at 's [facility] office. Gave her the number for Alis ('s [facility]), the number for the [facility] Pre-Access 3rd democrat per the message above from Alis, and the number for the [place]. [facility] 05-29-2024 Miscellaneous Notes Images from the original note were not included. Alis Hanna to [facility] 05/29/24 1:17 PM If patient called your office then please return the call. Next time, just have patient call [facility] or have them contact [facility] PreAccess Dept if you don't want to address patient's question because they have not been seen at [facility]. Thank you Called and spoke with the patient. Explained to the patient that because all information about her claim and appointments has not come to the [place] office we were unable to assist her when she called earlier. Told her that a message has been sent over to , Lizette Tobar PA-C and Alis regarding her call from earlier. Patient stated her and her tax associate attorney have left multiple messages at 's [facility] office. Gave her the number for Alis ('s [facility]), the number for the [facility] Pre-Access 3rd democrat per the message above from Alis, and the number for the [place]. Routing to 's Website Project Manager for [facility] where patient has been seen exclusively. Closing encounter for [place] Team. Patient called stating she needs a letter from Dr Valencia stating why a rotator cuff tear and bicep tendonitis would not show up on an MRI for a court date she had on 05/31/2024. Her tax associate attorney needs this letter SIM. Fax number for tax associate attorney's office is [phone] Patient calling She was inquiring about a ltter her gyn had sent Per pt, Dr Valencia agreed to relate her rotator cuff tear to her work injury for the [employer] She has court on May 31 and she needs a letter written by May 30 She states she did call Alis at the [facility] office and left a message Please advise documented in this encounter [facility] 05-29-2024 Telephone encounter Note Routing to 's Website Project Manager for [facility] where patient has been seen exclusively. Closing encounter for To Team. [facility] 05-29-2024 Telephone encounter Note Patient called stating she needs a letter from Dr Valencia stating why a rotator cuff tear and bicep tendonitis would not show up on an MRI for a court date she had on 05/31/2024. Her tax associate attorney needs this letter SIM. Fax number for tax associate attorney's office is [phone] [facility] 05-29-2024 Telephone encounter Note Patient calling She was inquiring about a ltter her gyn had sent Per pt, Dr Valencia agreed to relate her rotator cuff tear to her work injury for the [employer] She has court on May 31 and she needs a letter written by May 30 She states she did call Alis at the [facility] office and left a message Please advise [facility] 05-28-2024 Telephone encounter Note The following approved medication requests have been transmitted electronically. Requested Prescriptions Signed Prescriptions Disp Refills oxyCODONE-acetaminophen (PERCOCET) 5-325 mg tablet 56 tablet 0 Sig: Take 1 tablet by mouth every 6 hours as needed for pain for up to 14 days. Patient should start on May 29, 2024. Authorizing Provider: MAILE NORMAN MD [facility] 05-28-2024 Miscellaneous Notes The following approved medication requests have been transmitted electronically. Requested Prescriptions Signed Prescriptions Disp Refills oxyCODONE-acetaminophen (PERCOCET) 5-325 mg tablet 56 tablet 0 Sig: Take 1 tablet by mouth every 6 hours as needed for pain for up to 14 days. Patient should start on May 29, 2024. Authorizing Provider: MAILE NORMAN MD Prescription Refill Information The patient has been identified by name and date of : Yes Caregiver verified no other encounters exist for this prescription request: Yes Caregiver confirmed with patient/requestor that no other refills are due, in the near future, with this provider at this time: Yes The last office visit in the department: 05/15/24 Does the patient have a future office visit with this provider/department: Yes Requested Prescriptions Pending Prescriptions Disp Refills oxyCODONE-acetaminophen (PERCOCET) 5-325 mg tablet 56 tablet 0 Sig: Take 1 tablet by mouth every 6 hours as needed for pain for up to 14 days. Feli Walton LPN May 28, 2024 4:32 PM Patient reports she needs refill by tomorrow. Last ov w/Workers Compensation Defense Attorney: 05-15-24 Next ov w/pcp: 07-31-24 documented in this encounter [facility] 05-28-2024 Telephone encounter Note Prescription Refill Information The patient has been identified by name and date of : Yes Caregiver verified no other encounters exist for this prescription request: Yes Caregiver confirmed with patient/requestor that no other refills are due, in the near future, with this provider at this time: Yes The last office visit in the department: 05/15/24 Does the patient have a future office visit with this provider/department: Yes Requested Prescriptions Pending Prescriptions Disp Refills oxyCODONE-acetaminophen (PERCOCET) 5-325 mg tablet 56 tablet 0 Sig: Take 1 tablet by mouth every 6 hours as needed for pain for up to 14 days. Feli Walton LPN May 28, 2024 4:32 PM [facility] 05-28-2024 Telephone encounter Note Patient reports she needs refill by tomorrow. Last ov w/Workers Compensation Defense Attorney: 05-15-24 Next ov w/pcp: 07-31-24 [facility] 05-25-2024 Telephone encounter Note Patient was notified Gabrielle Aguilera MA [facility] 05-25-2024 Miscellaneous Notes Patient was notified Gabrielle Aguilera MA Please inform patient that an x-ray is negative. Follow-up with PCP if symptoms are not improving. Galo Bernal APRN.CNP documented in this encounter [facility] 05-25-2024 Telephone encounter Note Please inform patient that an x-ray is negative. Follow-up with PCP if symptoms are not improving. Galo Bernal APRN.CNP [facility] 05-25-2024 History of Present illness Narrative Radiology Service Progress Note PATIENT NAME: Pat Knight DATE OF SERVICE: May 25, 2024 TIME: 11:53 AM PATIENT IDENTITY VERIFICATION COMPLETED USING TWO (2) IDENTIFIERS: Name and Date of confirmed by patient verbally. FALL SCREENING: Has the patient had 2 falls in the last year or 1 fall with injury or currently using an Ambulatory Assistive Device (Walker, Cane, Wheelchair, Crutches, etc.)? No PATIENT GENDER DATA: Female. status: : No status: NO. PATIENT RELEVANT IMPLANT DATA REVIEWED: Not Applicable PATIENT PRESENTS WITH AN IMPLANTABLE OR ATTACHED SECRETARY BOOK KEEPER: No RADIOLOGY DEPARTMENT: General X-ray: Exam(s) Completed: Upper Extremity X-Ray(s): Hand, right PERIPHERAL IV DATA: Not applicable SIGNED BY: RT Walter(R) May 25, 2024 11:53 AM documented in this encounter [facility] 05-25-2024 Note [facility] 05-23-2024 Note [facility] 05-23-2024 History of Present illness Narrative Images from the original note were not included. Subjective HPI Nontoxic-appearing female presents urgent care chief complaint sore on palmar aspect of right hand. Duration of symptoms 2 weeks. Associated symptoms listed above. Was seen twice for this in the past. HSV swab negative. Placed on doxycycline. Symptoms did not improve. Did follow-up with PCP. Was placed on Keflex. States symptoms did improve on Keflex. Presents today for reevaluation. No new blisters redness or pain. No drainage. No fevers. Past medical history prescription medications allergies reviewed. .Patient presents with: sore on right middle finger: X 2 weeks PAST MEDICAL HISTORY Diagnosis Date Abdominal pain, unspecified site Abnormal glandular Papanicolaou smear of cervix 04/08/2006 Abn. 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 No issues in 16 years Depression Diarrhea Irritable bowel syndrome Mental disorders complicating , childbirth, or the puerperium DEPRESSION Migraine, unspecified, with intractable migraine, so stated, without mention of status migrainosus Other and unspecified ovarian cyst PMH - PAST MEDICAL HISTORY OF Narcotic dependence requiring rehab in 2006 Temporomandibular joint disorders, unspecified PAST SURGICAL HISTORY Procedure Laterality Date ADENOIDECTOMY PRIMARY <AGE 14 Adenoidectomy COLPOSCOPY CERVIX UPPER/ADJACENT VAGINA Colposcopy DILATION & CURETTAGE DX&/THER NONOBSTETRIC 2000 Dilation & curettage,TAB ESOPHAGOGASTRODUODENOSCOPY TRANSORAL DIAGNOSTIC 11/01/11 EGD [facility] inpt H-pylori negative LIG/TRNSXJ FLP TUBE ABDL/VAG APPR UNI/BI 04/09/2006 Tubal ligation MYRINGOTOMY ASPIR&/EUSTACHIAN TUBE NFLTJ ANES 1994 Myringotomy/tubes OOPHORECTOMY PARTIAL/TOTAL UNI/BI left TONSILLECTOMY PRIMARY/SECONDARY <AGE 14 1987 Tonsillectomy ALLERGIES Pamprin Multi-Symptom [Gnpjhxprlyyjt-Tlczrxyl-Lwlxjof], Buspar [Buspirone], Codeine, Lamotrigine, Nitrofurantoin Macrocrystal, and Promethazine-Phenylephrine MEDICATIONS oxyCODONE-acetaminophen (PERCOCET) 5-325 mg tablet Take 1 tablet by mouth every 6 hours as needed for pain for up to 14 days. albuterol HFA (PROVENTIL HFA, VENTOLIN HFA) 90 mcg/actuation inhaler Inhale 2 Puffs as instructed every 4 hours as needed for wheezing/shortness of breath. meloxicam (MOBIC) 15 mg tablet Take 1 tablet by mouth once daily. With food. lidocaine (LIDODERM) 5 % Apply 1 Patch as directed every 24 hours. Wear patch for 12 hours and then remove for 12 hours prior to placing new patch, apply to the right shoulder area. tiZANidine (ZANAFLEX) 4 mg tablet Take 1 tablet by mouth every 6 hours as needed. For muscle tightness/pain (muscle relaxer) ondansetron orally disintegrating (ZOFRAN ODT) 4 mg disintegrating tablet Take 1 tablet by mouth every 8 hours as needed for nausea/vomiting. Ibuprofen 200 mg cap Take by mouth every 6 hours as needed for pain. phenylephrine HCl/acetaminophn (EXCEDRIN SINUS HEADACHE ORAL) Take by mouth as needed (headache). traZODone (DESYREL) 100 mg tablet Take 1 tablet by mouth daily at bedtime. acetaminophen (TYLENOL) 325 mg tablet Take 650 mg by mouth every 6 hours as needed. gabapentin (NEURONTIN) 300 mg capsule Take 1 capsule by mouth three times a day for 90 days. FAMILY HISTORY Problem Relation Age of Onset Psychiatry Mother DEPRESSION Hypertension Father Cervical Cancer Maternal Grandmother Hypertension Maternal Grandmother Cancer Maternal Grandfather BLADDER Heart Maternal Grandfather SC & EMPHYSEMA Social History Tobacco Use Smoking status: Every Day Current packs/day: 1.00 Average packs/day: 1 pack/day for 30.0 years (30.0 ttl pk-yrs) Types: Cigarettes Smokeless tobacco: Never Vaping Use Vaping status: Never Used Substance Use Topics Alcohol use: No Drug use: Yes Types: Marijuana Comment: daily BP 122/82 Pulse 96 Temp 36.4 C (97.6 F) (Tympanic) Resp 18 Wt 55.8 kg (123 lb 0.3 oz) LMP 05/07/2009 SpO2 96% BMI 20.47 kg/m Review of Systems Constitutional: Negative for chills, fever and malaise/fatigue. Musculoskeletal: Positive for joint pain. Negative for back pain, falls, myalgias and neck pain. Neurological: Negative for dizziness, loss of consciousness, weakness and headaches. Objective Physical Exam Constitutional: General: She is not in acute distress. Appearance: She is not toxic-appearing. HENT: Head: Normocephalic. Nose: Nose normal. Eyes: Pupils: Pupils are equal, round, and reactive to light. Cardiovascular: Rate and Rhythm: Normal rate. Pulmonary: Effort: Pulmonary effort is normal. No respiratory distress. Musculoskeletal: Hands: Cervical back: Normal range of motion. Comments: Approximately 5 mm x 5 mm crusting bulla noted to highlighted area. No remote redness. No edema or erythema. No drainage. Neurovascular intact. Full range of motion. Mild tenderness with palpation over MCP joint. Skin: General: Skin is warm and dry. Neurological: General: No focal deficit present. Mental Status: She is alert. ASSESSMENT/PLAN: 1. Pain of right hand - ICD9: 729.5, ICD10: M79.641 - XR HAND GENERAL 3V PA/LAT/OBL RIGHT Diagnosis right hand pain. Wound was healing well. There is no fluctuance or drainage. No remote redness. At this point there does not appear to be any evidence of cellulitis or deep space infection. However with pain with palpation over MCP joint will obtain x-ray of hand. Encouraged to follow-up with PCP 48 hours reevaluation. Red flags for prompt ER evaluation discussed. Be seen for any new worsening or symptoms lasting longer than anticipated. Patient verbalized understanding agrees with plan of care. Galo Bernal APRN.LUIS DANIEL documented in this encounter [facility] 05-15-2024 Note [facility] 05-15-2024 History of Present illness Narrative CC: Patient presents with: Derm Problem HPI Pat Knight is a 44 year old female who presents today for above. Patient woke up on 05/10 with what appeared to be a spider bite on the right middle finger. This developed into a small blister so she went to express care on 05/11. A culture for HSV1,2 and VZV was obtained and she was started on Doxycycline for possible infection. The culture was negative. Today patient reports a new blister has developed that is large and painful. There is surrounding redness. Denies fever, chills, finger swelling, purulent drainage, red streaking. She is taking the Doxycycline as prescribed. Review of Systems See HPI PAST MEDICAL HISTORY Diagnosis Date Abdominal pain, unspecified site Abnormal glandular Papanicolaou smear of cervix 04/08/2006 Abn. 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 No issues in 16 years Depression Diarrhea Irritable bowel syndrome Mental disorders complicating , childbirth, or the puerperium DEPRESSION Migraine, unspecified, with intractable migraine, so stated, without mention of status migrainosus Other and unspecified ovarian cyst PMH - PAST MEDICAL HISTORY OF Narcotic dependence requiring rehab in 2006 Temporomandibular joint disorders, unspecified PAST SURGICAL HISTORY Procedure Laterality Date ADENOIDECTOMY PRIMARY <AGE 14 Adenoidectomy COLPOSCOPY CERVIX UPPER/ADJACENT VAGINA Colposcopy DILATION & CURETTAGE DX&/THER NONOBSTETRIC 2000 Dilation & curettage,TAB ESOPHAGOGASTRODUODENOSCOPY TRANSORAL DIAGNOSTIC 11/01/11 EGD [facility] inpt H-pylori negative LIG/TRNSXJ FLP TUBE ABDL/VAG APPR UNI/BI 04/09/2006 Tubal ligation MYRINGOTOMY ASPIR&/EUSTACHIAN TUBE NFLTJ ANES 1994 Myringotomy/tubes OOPHORECTOMY PARTIAL/TOTAL UNI/BI left TONSILLECTOMY PRIMARY/SECONDARY <AGE 14 1987 Tonsillectomy ALLERGIES Pamprin Multi-Symptom [Tirneucoqoyaf-Njjeahzf-Ndiszav], Buspar [Buspirone], Codeine, Lamotrigine, Nitrofurantoin Macrocrystal, and Promethazine-Phenylephrine MEDICATIONS oxyCODONE-acetaminophen (PERCOCET) 5-325 mg tablet Take 1 tablet by mouth every 6 hours as needed for pain for up to 14 days. doxycycline monohydrate 100 mg tablet Take 1 tablet by mouth two times a day for 7 days. albuterol HFA (PROVENTIL HFA, VENTOLIN HFA) 90 mcg/actuation inhaler Inhale 2 Puffs as instructed every 4 hours as needed for wheezing/shortness of breath. meloxicam (MOBIC) 15 mg tablet Take 1 tablet by mouth once daily. With food. gabapentin (NEURONTIN) 300 mg capsule Take 1 capsule by mouth three times a day for 90 days. lidocaine (LIDODERM) 5 % Apply 1 Patch as directed every 24 hours. Wear patch for 12 hours and then remove for 12 hours prior to placing new patch, apply to the right shoulder area. tiZANidine (ZANAFLEX) 4 mg tablet Take 1 tablet by mouth every 6 hours as needed. For muscle tightness/pain (muscle relaxer) ondansetron orally disintegrating (ZOFRAN ODT) 4 mg disintegrating tablet Take 1 tablet by mouth every 8 hours as needed for nausea/vomiting. Ibuprofen 200 mg cap Take by mouth every 6 hours as needed for pain. phenylephrine HCl/acetaminophn (EXCEDRIN SINUS HEADACHE ORAL) Take by mouth as needed (headache). traZODone (DESYREL) 100 mg tablet Take 1 tablet by mouth daily at bedtime. acetaminophen (TYLENOL) 325 mg tablet Take 650 mg by mouth every 6 hours as needed. FAMILY HISTORY Problem Relation Age of Onset Psychiatry Mother DEPRESSION Hypertension Father Cervical Cancer Maternal Grandmother Hypertension Maternal Grandmother Cancer Maternal Grandfather BLADDER Heart Maternal Grandfather SC & EMPHYSEMA Social History Tobacco Use Smoking status: Every Day Current packs/day: 1.00 Average packs/day: 1 pack/day for 30.0 years (30.0 ttl pk-yrs) Types: Cigarettes Smokeless tobacco: Never Vaping Use Vaping status: Never Used Substance Use Topics Alcohol use: No Drug use: Yes Types: Marijuana Comment: daily BP 122/84 (BP Site: Left Arm, BP Position: Sitting, BP Cuff Size: Large Adult) Pulse 88 Temp 36.8 C (98.2 F) (Temporal) Resp 18 Wt 56.1 kg (123 lb 10.9 oz) LMP 05/07/2009 BMI 20.58 kg/m Physical Exam Vitals reviewed. Constitutional: Appearance: Normal appearance. She is not ill-appearing. Musculoskeletal: Right hand: Normal capillary refill. Normal pulse. Comments: Right middle finger- full and painless ROM. No edema. Fluid filled blister approximately 1 cm in diameter located at the base. Small margin of surrounding erythema. No induration, fluctuance, lymphangitis. Blister cleansed with alcohol and four small punctures made with a 23 gauge needle. Clear fluid expressed. Bactroban ointment applied and covered with a Band-aid. Patient tolerated well and reported immediate relief after it was drained. No culture was obtained. Neurological: Mental Status: She is alert. ASSESSMENT/PLAN: 1. Cellulitis of finger of right hand - ICD9: 681.00, ICD10: L03.011 (primary diagnosis) Etiology unclear. Worsening after 7 doses of Doxycycline - discontinue Doxycycline - Begin treatment with Keflex, see orders - No lymphangetic streaking, this was defined for patient to watch for and to seek medical care immediately if appears - Follow up for recheck in five days 2. Blister of finger, initial encounter - ICD9: 915.2, ICD10: S60.429A As above Prescription instructions reviewed with patient as applicable. Potential red flag symptoms discussed with the patient. Reviewed appropriate action plan to take if red flag symptoms occur. Patient agreeable to treatment plan. Anny Carter APRN.LUIS DANIEL documented in this encounter [facility] 05-15-2024 Telephone encounter Note Spoke to pt. Appt scheduled with Anny Pham CNP for 1:00 pm today. Darline Santamaria LPN [facility] 05-15-2024 Miscellaneous Notes Spoke to pt. Appt scheduled with Anny Pham CNP for 1:00 pm today. Darline Santamaria LPN Left message to call office. 05/15/2024 9:45 AM. Pt was seen in 05/11/24 for 2 small bite-looking oneil at base of middle finger. Shingles vs insect bite. Pt reports she now has a dime size blister at area, it is fluid filled & red, purplish in color. + painful. Pt denies red streaking or fever. Pt needs scheduled for appt. Britt Murray LPN documented in this encounter [facility] 05-15-2024 Telephone encounter Note Left message to call office. 05/15/2024 9:45 AM. Pt was seen in 05/11/24 for 2 small bite-looking oneil at base of middle finger. Shingles vs insect bite. Pt reports she now has a dime size blister at area, it is fluid filled & red, purplish in color. + painful. Pt denies red streaking or fever. Pt needs scheduled for appt. Britt Murray LPN [facility] 05-11-2024 Note [facility] 05-11-2024 History of Present illness Narrative SUBJECTIVE: Hepatitis B Vaccine(2 of 3 - Hep B Twinrix 3-dose series) due on 05/19/2016 Mammogram Screening Never done Cervical Cancer Screening due on 09/28/2022 HPI Pat Knight is a 44year old female. PMH significnat for ACTIVE PROBLEM LIST Allergic Rhinitis, Cause Unspecified Diarrhea Chronic Pain Depression Anxiety Add (Attention Deficit Hyperactivity Disorder, Inattentive Type) Hepatitis C Virus Infection Without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 Given message from provider's office. Patient verbalizes understanding. Aline Melvin RN [facility] 03-07-2024 Miscellaneous Notes Spoke with patient. Given message from provider's office. Patient verbalizes understanding. Aline Melvin RN Left message to call office. 03/07/2024 1:51 PM. Britt Murray LPN Ok for cxr, order placed, please let her know. Patient calling to give an update to Sam Khan CNP. Patient was seen by Sam for ER Follow Up on 02/28/24; viral bronchitis. Medrol Dose pack was ordered at that visit. Patient has completed Z-hernan, Medrol Dose Pack and Bactrim-took last dose this morning. Patient calling to state she feels she has improved but continues to feel some burning in her right lung area and is asking if Sam would order a chest xray to ensure she is improving? Patient denies current chest pain, SOB, weakness, fever, vomiting or diarrhea. Reports some nausea at times but attributes this to the antibiotic. Please advise patient. Thank you. documented in this encounter [facility] 03-07-2024 Telephone encounter Note Left message to call office. 03/07/2024 1:51 PM. Britt Murray LPN [facility] 03-07-2024 Telephone encounter Note Ok for cxr, order placed, please let her know. [facility] 03-07-2024 Telephone encounter Note Patient calling to give an update to Sam Khan CNP. Patient was seen by Sam for ER Follow Up on 02/28/24; viral bronchitis. Medrol Dose pack was ordered at that visit. Patient has completed Z-hernan, Medrol Dose Pack and Bactrim-took last dose this morning. Patient calling to state she feels she has improved but continues to feel some burning in her right lung area and is asking if Sam would order a chest xray to ensure she is improving? Patient denies current chest pain, SOB, weakness, fever, vomiting or diarrhea. Reports some nausea at times but attributes this to the antibiotic. Please advise patient. Thank you. [facility] 02-28-2024 Note [facility] 02-28-2024 History of Present illness Narrative SUBJECTIVE Pat Knight is a 44 year old female here today for an ER follow up. Chief Complaint Patient presents with: ER F/U: [facility] 02/26/24 & 02/27/24 CT scan which showed possible pneumonia, WBC elevated, Right leg pain/swelling HPI Pat Knight is a 44 year old female.She is an established patient of Maile Norman MD. Here today for an ER follow up. At 1 am on the 1st went to ER at [facility]. Had not been feeling well for several days but was putting off things. ER suspected a pneumonia based on CT scan results, she is a smoker. Sent home with antibiotics (zpack and Bactrim) but pharmacy was closed because of weekend/Labor day. Went back yesterday to ER because of still not feeling better. Given oral antibiotics and sent home. Symptoms of some cough, diarrhea, fatigue, sweats. Also had some swelling to her right groin area. ER records received and reviewed with her visit today. Reviewed notes and testing work up. Her medications were reviewed today and her list is now up to date. Medications Current Outpatient Medications Medication Sig meloxicam (MOBIC) 15 mg tablet Take 1 tablet by mouth once daily. With food. oxyCODONE-acetaminophen (PERCOCET) 5-325 mg tablet Take 1 tablet by mouth every 6 hours as needed for pain for up to 14 days. nystatin (MYCOSTATIN) 100,000 unit/mL suspension Take 5 mL by mouth four times daily. 1tsp swish in mouth for several minutes, then swallow (or expectorate) 4 times daily until gone. gabapentin (NEURONTIN) 300 mg capsule Take 1 capsule by mouth three times a day for 90 days. lidocaine (LIDODERM) 5 % Apply 1 Patch as directed every 24 hours. Wear patch for 12 hours and then remove for 12 hours prior to placing new patch, apply to the right shoulder area. tiZANidine (ZANAFLEX) 4 mg tablet Take 1 tablet by mouth every 6 hours as needed. For muscle tightness/pain (muscle relaxer) ondansetron orally disintegrating (ZOFRAN ODT) 4 mg disintegrating tablet Take 1 tablet by mouth every 8 hours as needed for nausea/vomiting. Ibuprofen 200 mg cap Take by mouth every 6 hours as needed for pain. phenylephrine HCl/acetaminophn (EXCEDRIN SINUS HEADACHE ORAL) Take by mouth as needed (headache). traZODone (DESYREL) 100 mg tablet Take 1 tablet by mouth daily at bedtime. acetaminophen (TYLENOL) 325 mg tablet Take 650 mg by mouth every 6 hours as needed. albuterol HFA (PROVENTIL HFA, VENTOLIN HFA) 90 mcg/actuation inhaler Inhale 2 Puffs as instructed every 4 hours as needed for wheezing/shortness of breath. methylPREDNISolone (MEDROL, HERNAN,) 4 mg Dose-Pack Follow dosing instructions, take with food. No current facility-administered medications for this visit. 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 No further NARCS per PCP. October 03, 2023--update--patient on short term opiates perioperatively; needed recent refill due to acute problem post-op.Following up with ortho Diarrhea Allergic Rhinitis, Cause Unspecified - 04/05/2006 Social History Tobacco Use Smoking status: Every Day Current packs/day: 1.00 Average packs/day: 1 pack/day for 30.0 years (30.0 ttl pk-yrs) Types: Cigarettes Smokeless tobacco: Never Vaping Use Vaping status: Never Used Substance Use Topics Alcohol use: No Drug use: Yes Types: Marijuana Comment: daily Review of Systems Constitutional: Positive for diaphoresis and fatigue. Respiratory: Positive for cough. Negative for chest tightness, shortness of breath and wheezing. Cardiovascular: Negative. OBJECTIVE BP 118/80 Pulse 78 Temp (Src) 97 (Tympanic) Resp 20 Wt 121 lb 7.6 oz (55.1kg) SpO2 97% LMP 05/07/2009 Physical Exam Vitals and nursing note reviewed. Constitutional: General: She is awake. She is not in acute distress. Appearance: Normal appearance. She is well-developed and well-groomed. She is not ill-appearing, toxic-appearing or diaphoretic. HENT: Head: Normocephalic. Right Ear: External ear normal. Left Ear: External ear normal. Nose: Nose normal. Eyes: General: Vision grossly intact. Conjunctiva/sclera: Conjunctivae normal. Pupils: Pupils are equal, round, and reactive to light. Neck: Vascular: No JVD. Trachea: Trachea normal. Cardiovascular: Rate and Rhythm: Normal rate and regular rhythm. Pulses: Normal pulses. Heart sounds: Normal heart sounds. No murmur heard. Pulmonary: Effort: Pulmonary effort is normal. No accessory muscle usage, prolonged expiration or respiratory distress. Breath sounds: Normal breath sounds. Musculoskeletal: Cervical back: Neck supple. Lymphadenopathy: Comments: No obvious palpable enlargement today Skin: General: Skin is warm and dry. Capillary Refill: Capillary refill takes less than 2 seconds. Neurological: General: No focal deficit present. Mental Status: She is alert and oriented to person, place, and time. Mental status is at baseline. Psychiatric: Attention and Perception: Attention and perception normal. Mood and Affect: Mood and affect normal. Speech: Speech normal. Behavior: Behavior normal. Behavior is cooperative. Thought Content: Thought content normal. Cognition and Memory: Cognition and memory normal. Judgment: Judgment normal. ASSESSMENT/PLAN: 1. Viral bronchitis - ICD9: 466.0, ICD10: J20.8 (primary diagnosis) ER also gave antibiotics to cover for bacteria, start as prescribed along with medrol dose pack and albuterol as needed. - ALBUTEROL SULFATE HFA 90 MCG/ACTUATION AEROSOL INHALER - METHYLPREDNISOLONE 4 MG TABLETS IN A DOSE PACK 2. Acute cough - ICD9: 786.2, ICD10: R05.1 - ALBUTEROL SULFATE HFA 90 MCG/ACTUATION AEROSOL INHALER 3. Lymph node enlargement - ICD9: 785.6, ICD10: R59.9 Description of groin mass consistent with a reactive lymph node, monitor. Repeat CBC today. 4. Screening for HIV (human immunodeficiency virus) - ICD9: V73.89, ICD10: Z11.4 - HIV 1/2 COMBO WITH REFLEX TO DIFFERENTIATION 5. Need for hepatitis C screening test - ICD9: V73.89, ICD10: Z11.59 - HEPATITIS C ANTIBODY IA WITH CONFIRMATION 6. Encounter for therapeutic drug monitoring - ICD9: V58.83, ICD10: Z51.81 - COMPLETE BLOOD COUNT AND DIFFERENTIAL - COMPREHENSIVE METABOLIC PANEL Portions of this note have been entered by ancillary staff. I have reviewed and when necessary edited, so that they are an adequate record of my encounter with this patient Please note that parts of this document were created using voice recognition software and therefore may contain grammatical errors. Patient verbalizes understanding of instructions from today's visit and in agreement with treatment plan. Questions answered. Agrees to call the office if questions, concerns of issues with acute symptoms not improving or if they worsen. See diagnoses and orders for additional plan(s). Allergies and medications were reviewed, list was updated, and refills given if needed. Past medical, surgical, social, and family history reviewed and updated as appropriate. Encouraged proper diet & exercise as well as compliance with taking medications. Age-appropriate health preventative measures were discussed. Return if symptoms worsen or fail to improve, for Keep next scheduled appointment.. Sam Khan APRN-LUIS DANIEL documented in this encounter [facility] 02-28-2024 Telephone encounter Note Pt states she went to [facility] twice yest, was dx'd with pneumonia. Was feeling worse & went back a second time. Was given antibiotics but pt states she wasn't able to fill the Rx as the pharmacy was closed d/t holiday. Pt reports she doesn't feel right, states she has swelling in the right groin area & her left leg feels tingly. Pt requested an appt today. Appt given with NPCleaver. Britt Murray LPN [facility] 02-28-2024 Miscellaneous Notes Pt states she went to [facility] twice yest, was dx'd with pneumonia. Was feeling worse & went back a second time. Was given antibiotics but pt states she wasn't able to fill the Rx as the pharmacy was closed d/t holiday. Pt reports she doesn't feel right, states she has swelling in the right groin area & her left leg feels tingly. Pt requested an appt today. Appt given with Elena. Britt Murray LPN documented in this encounter [facility] 02-16-2024 Note [facility] 02-16-2024 History of Present illness Narrative This note was created using HitchedPic. Subjective Pat Knight is a 44 year old female. HPI 44-year-old female presents for white patches in the mouth. Patient states she started getting white patches in her mouth yesterday. She states she has white patches on her tongue and in the back of her throat. She thinks it might be thrush. She has had thrush in the past. Patient states she has not been on antibiotics or steroids recently, but is on some new pain medications because she recently had surgery on her shoulder. No difficulty swallowing. Still able to eat and drink. No vomiting or diarrhea. No cough congestion or other URI symptoms. No fevers. No other complaint. PAST MEDICAL HISTORY No date: Abdominal pain, unspecified site 04/08/2006: Abnormal glandular Papanicolaou smear of cervix Comment: Abn. Pap smear (cervix) 04/05/2006: Allergic rhinitis, cause unspecified No date: Anxiety No date: Congestive heart failure (HCC) Comment: during . 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 No issues in 16 years No date: Depression No date: Diarrhea No date: Irritable bowel syndrome No date: Mental disorders complicating , childbirth, or the puerperium Comment: DEPRESSION No date: Migraine, unspecified, with intractable migraine, so stated, without mention of status migrainosus No date: Other and unspecified ovarian cyst No date: PMH - PAST MEDICAL HISTORY OF Comment: Narcotic dependence requiring rehab in 2006 No date: Temporomandibular joint disorders, unspecified PAST SURGICAL HISTORY No date: ADENOIDECTOMY PRIMARY <AGE 14 Comment: Adenoidectomy No date: COLPOSCOPY CERVIX UPPER/ADJACENT VAGINA Comment: Colposcopy 2001: DILATION & CURETTAGE DX&/THER NONOBSTETRIC Comment: Dilation & curettage,TAB 11/01/11: ESOPHAGOGASTRODUODENOSCOPY TRANSORAL DIAGNOSTIC Comment: EGD [facility] inpt H-pylori negative 04/09/2006: LIG/TRNSXJ FLP TUBE ABDL/VAG APPR UNI/BI Comment: Tubal ligation 1994: MYRINGOTOMY ASPIR&/EUSTACHIAN TUBE NFLTJ ANES Comment: Myringotomy/tubes No date: OOPHORECTOMY PARTIAL/TOTAL UNI/BI Comment: left 1988: TONSILLECTOMY PRIMARY/SECONDARY <AGE 14 Comment: Tonsillectomy ALLERGIES Pamprin Multi-Symptom [Ggdkobmpuegwf-Svdxahxz-Ulzqhlf], Buspar [Buspirone], Codeine, Lamotrigine, Nitrofurantoin Macrocrystal, and Promethazine-Phenylephrine MEDICATIONS nystatin (MYCOSTATIN) 100,000 unit/mL suspension Take 5 mL by mouth four times daily. 1tsp swish in mouth for several minutes, then swallow (or expectorate) 4 times daily until gone. oxyCODONE-acetaminophen (PERCOCET) 5-325 mg tablet Take 1 tablet by mouth every 6 hours as needed for pain for up to 14 days. gabapentin (NEURONTIN) 300 mg capsule Take 1 capsule by mouth three times a day for 90 days. lidocaine (LIDODERM) 5 % Apply 1 Patch as directed every 24 hours. Wear patch for 12 hours and then remove for 12 hours prior to placing new patch, apply to the right shoulder area. tiZANidine (ZANAFLEX) 4 mg tablet Take 1 tablet by mouth every 6 hours as needed. For muscle tightness/pain (muscle relaxer) meloxicam (MOBIC) 15 mg tablet Take 1 tablet by mouth once daily. With food. ondansetron orally disintegrating (ZOFRAN ODT) 4 mg disintegrating tablet Take 1 tablet by mouth every 8 hours as needed for nausea/vomiting. Ibuprofen 200 mg cap Take by mouth every 6 hours as needed for pain. phenylephrine HCl/acetaminophn (EXCEDRIN SINUS HEADACHE ORAL) Take by mouth as needed (headache). albuterol HFA (PROVENTIL HFA, VENTOLIN HFA) 90 mcg/actuation inhaler Inhale 2 Puffs as instructed every 4 hours as needed for wheezing/shortness of breath. traZODone (DESYREL) 100 mg tablet Take 1 tablet by mouth daily at bedtime. acetaminophen (TYLENOL) 325 mg tablet Take 650 mg by mouth every 6 hours as needed. FAMILY HISTORY Problem Relation Age of Onset Psychiatry Mother DEPRESSION Hypertension Father Cervical Cancer Maternal Grandmother Hypertension Maternal Grandmother Cancer Maternal Grandfather BLADDER Heart Maternal Grandfather SC & EMPHYSEMA Social History Tobacco Use Smoking status: Every Day Current packs/day: 1.00 Average packs/day: 1 pack/day for 30.0 years (30.0 ttl pk-yrs) Types: Cigarettes Smokeless tobacco: Never Vaping Use Vaping status: Never Used Substance Use Topics Alcohol use: No Drug use: Yes Types: Marijuana Comment: daily Review of Systems Constitutional: Negative for chills and fever. HENT: Positive for mouth sores. Negative for congestion, ear pain and sore throat. Respiratory: Negative for cough and shortness of breath. Cardiovascular: Negative for chest pain. Gastrointestinal: Negative for diarrhea and vomiting. Objective BP 113/73 Pulse 85 Temp 36.8 C (98.2 F) Resp 18 Wt 56.6 kg (124 lb 12.5 oz) LMP 05/07/2009 SpO2 100% BMI 20.76 kg/m Physical Exam Vitals and nursing note reviewed. Constitutional: General: She is not in acute distress. Appearance: Normal appearance. She is not toxic-appearing. HENT: Right Ear: Tympanic membrane and ear canal normal. Left Ear: Tympanic membrane and ear canal normal. Nose: Nose normal. Mouth/Throat: Mouth: Mucous membranes are moist. Tongue: Lesions present. Palate: Lesions present. Comments: Patient has white patches noted on tongue and posterior oropharynx. No tonsillar exudates. No tongue or floor of mouth swelling. Airway intact. Handling secretions. Eyes: Conjunctiva/sclera: Conjunctivae normal. Cardiovascular: Rate and Rhythm: Normal rate and regular rhythm. Pulmonary: Effort: Pulmonary effort is normal. Breath sounds: Normal breath sounds. Skin: General: Skin is warm and dry. Neurological: Mental Status: She is alert. Assessment and Plan ASSESSMENT/PLAN: 1. Thrush - ICD9: 112.0, ICD10: B37.0 -Exam appears consistent with thrush. Patient has had this in the past. -Rx for nystatin mouthwash. -Follow-up if symptoms persist. Diagnosis and treatment plan were discussed and questions were answered to the patient's satisfaction. Pt acknowledged understanding of concepts and follow up plan. Specific signs and symptoms that would indicate the need for higher level of care were discussed in detail warranting prompt ER evaluation. SAAD Gamez documented in this encounter [facility] 02-13-2024 Telephone encounter Note Rey, I just wanted to send an update on this mutual patient who was seen last week and had a steroid injection to her shoulder. Her shoulder pain is continuing and she reports it has actually worsened since the injection. We are trying to help manage her pain but wanted to update you as well. [facility] 02-13-2024 Miscellaneous Notes Rey, I just wanted to send an update on this mutual patient who was seen last week and had a steroid injection to her shoulder. Her shoulder pain is continuing and she reports it has actually worsened since the injection. We are trying to help manage her pain but wanted to update you as well. Yes, okay for the refill, refill sent. She needs seen at least every 3 months since on the percocet but is being seen more often than that right now given her pain issues. We started the gabapentin about 3 weeks ago so we could follow up with an office visit next week to decide if we want to increase it since there is room to go up or try something different. But also she needs to let ortho know that pain is worse since getting the injection because that might change what they are planning/doing for her. Pt walked in for the refill. She is asking for rx this am. When did you want to see her again? This can be arranged and let her know. Images from the original note were not included. Pt calls today in regards to message below sent through . Please review and advise. Pat Knight to Sam Khan APRN.LUIS DANIEL SUZANNE 02/12/24 9:11 PM Rey, So I went to see Dr. Valencia, he is ordering another MRI and has agreed to link the rotator cuff to my work and comp injury. With that being said it's going to take a little longer to schedule the MRI because it's going through workman's comp. He did give me a cortisone shot in his office that day. My pain has been severely worse since the cortisone shot. I'm not sure why last time I got a cortisone shot it didn't help but it didn't make the pain worse. Could you please call me in a refill again for the Percocet. And I'm going to worry more about keeping my pain under control then weaning myself off of those until we get the results from the MRI and see if he does need to schedule another surgery or what's actually going on in there. Because I mean I am absolutely miserable everyday. And if something is messed up in there that would explain excruciating pain I'm still having. The gabapentin I haven't noticed a difference in relieving any of the pain I'm still taking that and I've been using lidocaine patches almost all day everyday along with ice. When would you like me to schedule my next appointment with you? Thank you and have a good day documented in this encounter [facility] 02-13-2024 Telephone encounter Note Yes, okay for the refill, refill sent. She needs seen at least every 3 months since on the percocet but is being seen more often than that right now given her pain issues. We started the gabapentin about 3 weeks ago so we could follow up with an office visit next week to decide if we want to increase it since there is room to go up or try something different. But also she needs to let ortho know that pain is worse since getting the injection because that might change what they are planning/doing for her. T [facility] 02-13-2024 Telephone encounter Note Pt walked in for the refill. She is asking for rx this am. When did you want to see her again? This can be arranged and let her know. [facility] 02-13-2024 Telephone encounter Note Images from the original note were not included. Pt calls today in regards to message below sent through . Please review and advise. Pat Knight to Sam Khan APRN.DISABILITY MANAGER SUZANNE 02/12/24 9:11 PM Rey, So I went to see Dr. Valencia, he is ordering another MRI and has agreed to link the rotator cuff to my work and comp injury. With that being said it's going to take a little longer to schedule the MRI because it's going through workman's comp. He did give me a cortisone shot in his office that day. My pain has been severely worse since the cortisone shot. I'm not sure why last time I got a cortisone shot it didn't help but it didn't make the pain worse. Could you please call me in a refill again for the Percocet. And I'm going to worry more about keeping my pain under control then weaning myself off of those until we get the results from the MRI and see if he does need to schedule another surgery or what's actually going on in there. Because I mean I am absolutely miserable everyday. And if something is messed up in there that would explain excruciating pain I'm still having. The gabapentin I haven't noticed a difference in relieving any of the pain I'm still taking that and I've been using lidocaine patches almost all day everyday along with ice. When would you like me to schedule my next appointment with you? Thank you and have a good day [facility] 02-10-2024 Hospital Discharge instructions Patient Education 02/10/2024 16:06:16 Shoulder Pain, Uncertain Cause Shoulder Pain with Uncertain Cause Shoulder pain can have many causes. Pain often comes from the structures that surround the shoulder joint. These are the joint capsule, ligaments, tendons, muscles, and bursa. Pain can also come from cartilage in the joint. Cartilage can become worn out or injured. It s important to know what s causing your pain so the healthcare provider can use the correct treatment. But sometimes it s difficult to find the exact cause of shoulder pain. You may need to see a specialist (orthopedist). You may also need special tests such as a CT scan or MRI. The provider may need to use special tools to look inside the joint (arthroscopy). Shoulder pain can be treated with a sling or a device that keeps your shoulder from moving. You can take an anti-inflammatory medicine such as ibuprofen to ease pain. You may need to do special shoulder exercises. Follow up with a specialist if the pain is severe or doesn t go away after a few weeks. Home care Follow these tips when caring for yourself at home: If a sling was given to you, leave it in place for the time advised by your healthcare provider. If you aren t sure how long to wear it, ask for advice. If the sling becomes loose, adjust it so that your forearm is level with the ground. Your shoulder should feel well supported. Put an ice pack on the injured area for 20 minutes every 1 to 2 hours the first day. You can make your own ice pack by putting ice cubes in a plastic bag. Wrap the bag in a thin towel. Continue with ice packs 3 to 4 times a day for the next 2 days. Then use the pack as needed to ease pain and swelling. You may use acetaminophen or ibuprofen to control pain, unless another pain medicine was prescribed. If you have chronic liver or kidney disease, talk with your healthcare provider before using these medicines. Also talk with your provider if you ve ever had a stomach ulcer or GI bleeding. Shoulder pain may seem worse at night, when there is less to distract you from the pain. If you sleep on your side, try to keep weight off your painful shoulder. Propping pillows behind you may stop you from rolling over onto that shoulder during sleep. Shoulder and elbow joints can become stiff if left in a sling for too long. You should start range of motion exercises about 7 to 10 days after the injury. Talk with your provider to find out what type of exercises to do and how soon to start. You can take the sling off to shower or bathe. Follow-up care Follow up with your healthcare provider if you don t start to get better in the next 5 days. When to seek medical advice Call your healthcare provider right away if any of these occur: Pain or swelling gets worse or continues for more than a few days Your hand or fingers become cold, blue, numb, or tingly Large amount of bruising on your shoulder or upper arm Difficulty moving your hand or fingers Weakness in your hand or fingers Your shoulder becomes stiff It feels like your shoulder is popping out You are less able to do your daily activities [id number] [employer]. [address] [place] [address]. All rights reserved. This information is not intended as a substitute for professional medical care. Always follow your healthcare professional's instructions. Follow Up Care 02/10/2024 15:29:01 With:MAILE NORMAN MD Address: [address] [place] [id number] When:2-4 days [facility] 02-10-2024 Note Discharge Instructions Thank you for allowing [facility] to assist you with your healthcare needs. The following is important discharge information regarding your hospital visit. Diagnosis from Today's Visit Shoulder pain What to Do Next Instructions from Your Care Team Please follow up with your surgeon on Tuesday No qualifying data available. Post Acute Orders No qualifying data available. You Need to Schedule the Following Appointments Follow Up with MAILE NORMAN MD When:Within 2-4 days Where:[facility] [place], [place] [id number]- Allergies LaMICtal Pamprin Maximum Pain Vicodin Itching codeine Medications Please ask your primary doctor or pharmacist before taking any other medication not listed, including over the counter drugs, herbal medications, vitamins and or supplements as they may interact with your home medications. What How Much When Instructions Last Dose Unchanged acetaminophen-oxyCODONE (acetaminophen-oxyCODONE 325 mg-5 mg oral tablet) 1 tab(s) by mouth Every 6 hours as needed for for pain Unchanged gabapentin (gabapentin 300 mg oral capsule) 1 cap by mouth Three (3) times a day Unchanged lidocaine topical (lidocaine 5% topical patch) 1 patch(es) Topical Once a day remove patches after 12 hours Unchanged meloxicam (Mobic) by mouth Once a day Unchanged traZODone by mouth Daily at bedtime Please take this list to your next doctor s visit. Bring all medications you take, including over the counter medications, herbals and other supplements with you to your doctor s visit. Patients and families are reminded to discard old lists and to update any records with all medication providers or retail pharmacies. Education Materials Shoulder Pain with Uncertain Cause Shoulder pain can have many causes. Pain often comes from the structures that surround the shoulder joint. These are the joint capsule, ligaments, tendons, muscles, and bursa. Pain can also come from cartilage in the joint. Cartilage can become worn out or injured. It s important to know what s causing your pain so the healthcare provider can use the correct treatment. But sometimes it s difficult to find the exact cause of shoulder pain. You may need to see a specialist (orthopedist). You may also need special tests such as a CT scan or MRI. The provider may need to use special tools to look inside the joint (arthroscopy). Shoulder pain can be treated with a sling or a device that keeps your shoulder from moving. You can take an anti-inflammatory medicine such as ibuprofen to ease pain. You may need to do special shoulder exercises. Follow up with a specialist if the pain is severe or doesn t go away after a few weeks. Home care Follow these tips when caring for yourself at home: If a sling was given to you, leave it in place for the time advised by your healthcare provider. If you aren t sure how long to wear it, ask for advice. If the sling becomes loose, adjust it so that your forearm is level with the ground. Your shoulder should feel well supported. Put an ice pack on the injured area for 20 minutes every 1 to 2 hours the first day. You can make your own ice pack by putting ice cubes in a plastic bag. Wrap the bag in a thin towel. Continue with ice packs 3 to 4 times a day for the next 2 days. Then use the pack as needed to ease pain and swelling. You may use acetaminophen or ibuprofen to control pain, unless another pain medicine was prescribed. If you have chronic liver or kidney disease, talk with your healthcare provider before using these medicines. Also talk with your provider if you ve ever had a stomach ulcer or GI bleeding. Shoulder pain may seem worse at night, when there is less to distract you from the pain. If you sleep on your side, try to keep weight off your painful shoulder. Propping pillows behind you may stop you from rolling over onto that shoulder during sleep. Shoulder and elbow joints can become stiff if left in a sling for too long. You should start range of motion exercises about 7 to 10 days after the injury. Talk with your provider to find out what type of exercises to do and how soon to start. You can take the sling off to shower or bathe. Follow-up care Follow up with your healthcare provider if you don t start to get better in the next 5 days. When to seek medical advice Call your healthcare provider right away if any of these occur: Pain or swelling gets worse or continues for more than a few days Your hand or fingers become cold, blue, numb, or tingly Large amount of bruising on your shoulder or upper arm Difficulty moving your hand or fingers Weakness in your hand or fingers Your shoulder becomes stiff It feels like your shoulder is popping out You are less able to do your daily activities [id number] [employer]. [address] [place] [address]. All rights reserved. This information is not intended as a substitute for professional medical care. Always follow your healthcare professional's instructions. Additional Information VACCINATE! IT SAVES LIVES! Members of the community who have not yet received the COVID-19 vaccine and would like to receive it can visit one of [facility] vaccine clinics. There are many vaccine clinic locations within the [facility]. For locations and available times, please visit www.[email or web address].[place].gov/. It is important to note that some COVID mobile vaccine clinics are held outdoors and may be canceled in rainy or stormy conditions. To learn more about pediatric vaccinations (ages 5-11), we invite you to visit the [facility] webpage. [email or web address]/[email or web address]-Frequently-[email or web address] -Questions.html To learn more about the COVID-19 vaccine, we invite you to visit the CDC website for a list of frequently asked questions. https://www.cdc.gov/coronavirus/2019-n cov/vaccines/faq.html [facility] Patient Portal Access Instructions: Stay connected with your healthcare team and access your personal medical information anytime with the [facility] Patient Portal. If you would like a full copy of your medical records please contact the [facility] Medical Records Department Tuesday through Tuesday between 8a.m. and 4:30p.m. Please follow the directions below to access the portal: 1.Access the email account you provided upon registration to the hospital.2.Look for an invitation email from [facility].3.Open the email and access the invitation link: Accept Invitation to [facility]4.Fill in the required moore to create your account. Sign into www.[employer] with your username and password that you created in the above steps to stay up to date. You can then view a summary of results, a summary of your visits, and the ability to download your summaries to your computer or send the information securely to a physician. Remember that your healthcare information is confidential, so carefully consider who you will allow to register on the [facility] Patient Portal for access to your information. You can also access the [facility] Patient Portal on the [employer] lala. Simply click on Health Records under Health Data and then click on the QR [employer] logo. HOW TO SAFELY DISPOSE OF PRESCRIPTION MEDICATIONS Please use one of the following methods to safely dispose of your unused medications. 1.Use a drug disposal kit: the drug disposal pouch allows you to safely discard your old and unused drugs. Ask your nurse to give you one when you are discharged.2.Visit a local take-back location: Many local pharmacies and police departments have programs that collect old and unwanted prescription drugs. Call your local pharmacy or go to http://bit.CareinSync/2Z8Db6c to find one close to you.3.Make use of household items: Use cat litter or old coffee grounds to dispose medications if other options are not available. Mix your drugs with these household products, seal them in an airtight container and throw it into the garbage. Call [facility]: [phone] to be sure your drugs can be disposed of in this way. Some medicines may require a different approach.4.Never flush your medications down the toilet. IF YOU HAVE BEEN PRESCRIBED AN OPIOIDS FOR PAIN If you have been prescribed an opioid (such as hydrocodone, oxycodone or morphine), it is critical to understand the possible side effects and risks of opioid pain medications. Even when taken as directed, opioids can have several side effects including: Tolerance, meaning you might need to take more of a medication for the same pain relief. Nausea, vomiting and/or constipation. Sleepiness, dizziness, dry mouth, confusion, depression or itching. Physical dependence, meaning you have withdrawal symptoms when a medication is stopped ? this can develop within a few days. KNOW YOUR RESPONSIBILITIES It is important to know exactly how much and how often to take the opioid pain medications you are prescribed. Never take opioids in higher amounts or more often than prescribed. Do not combine opioids with alcohol or other drugs that cause drowsiness, such as benzodiazepines, also known as benzos, including diazepam and alprazolam, muscle relaxants or sleep aids. Never sell or share prescription opioids. This is illegal. Store opioids in a secure place and out of reach of others (including children, family, friends and visitors). The last page(s) of this document has been signed and retained as a CHART COPY Signatures Patient Education Materials Shoulder Pain, Uncertain Cause Medication Leaflets My discharge plan and instructions have been reviewed and explained to me and IADAM JENNIFER L understand my current condition and have read and understand these discharge instructions. I have received a written copy of the plan/instructions. If I have questions, I am aware that I should contact my doctor. 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 Author Type: LICENSED NURSE Type: Progress Notes Filed: 02/17/2024 10:26 Note Text: Injection prepared per Dr. Valencia's order and handed directly to him. Injection site: right shoulder Merline Carson LPN [facility] 02-07-2024 History of Present illness Narrative Injection prepared per Dr. Valencia's order and handed directly to him. Injection site: right shoulder Merline Carson LPN Associated Order(s): Large Joint Arthro/Inj: R shoulder joint Post-Procedure Diagnose(s): S/P right rotator cuff repair; Right shoulder pain, unspecified chronicity PAIN EVALUATION 02/07/2024 1504 Pain Level: 6 Description: Aching Frequency: Continuous Encounter Diagnosis ICD-10-CM 1. S/P right rotator cuff repair Z98.890 MRI SHOULDER WO IVCON RIGHT 2. Right shoulder pain, unspecified chronicity M25.511 MRI SHOULDER WO IVCON RIGHT Pat Knight returns today with significant pain and worsening weakness in her right shoulder. She underwent arthroscopic rotator cuff repair of the right shoulder in May 2023 but was lost to follow-up during her recovery. She states that she lost coverage and was unable to return for visits. She recalls that just a few days after surgery she jerked the arm up and had significant pain, not improved since that time. EXAM: I examined her right shoulder today. She has significant pain and guarding throughout the exam. She can only actively elevate about 90 degrees before pain limits her. Passive motion above 90 degrees also gives her pain. She has significant weakness to resisted forward elevation with severe pain in the anterolateral shoulder. Rotational movement with the arm the side does not give her pain but once the arm is abducted the rotational motion becomes increasingly painful. PLAN: We discussed her shoulder today, based on the level of weakness and pain recommended MRI to evaluate for possible failure of healing or recurrent rotator cuff tearing as a cause for continued pain and weakness in the shoulder. After this is obtained she should return to see me for discussion of the results and possible treatment planning including revision surgery. Patient may use the shoulder for all activities as tolerated in the meantime. Gentle home stretching was recommended. Large Joint Arthro/Inj: R shoulder joint 02/07/2024 3:27 PM The procedure site was prepped in the usual sterile fashion. Site: R shoulder joint Medications: 80 mg triamcinolone acetonide 40 mg/mL Anesthetics: 4 mL bupivacaine (PF) 0.25 % (2.5 mg/mL) Outcome: Tolerated well, no immediate complications Post-injection instructions were reviewed with the patient and the patient voiced understanding of these instructions. Louis Valencia MD Shoulder & Elbow Surgeon Department of Orthopaedic Surgery [facility] documented in this encounter [facility] 02-07-2024 Note HNO ID: [id number] Author: LOUIS VALENCIA MD Service: ? Author Type: Physician Type: Progress Notes Filed: 02/17/2024 10:26 Note Text: PAIN EVALUATION 02/07/2024 1504 Pain Level: 6 Description: Aching Frequency: Continuous Encounter Diagnosis ICD-10-CM 1. S/P right rotator cuff repair Z98.890 MRI SHOULDER WO IVCON RIGHT 2. Right shoulder pain, unspecified chronicity M25.511 MRI SHOULDER WO IVCON RIGHT Pat Knight returns today with significant pain and worsening weakness in her right shoulder. She underwent arthroscopic rotator cuff repair of the right shoulder in May 2023 but was lost to follow-up during her recovery. She states that she lost coverage and was unable to return for visits. She recalls that just a few days after surgery she jerked the arm up and had significant pain, not improved since that time. EXAM: I examined her right shoulder today. She has significant pain and guarding throughout the exam. She can only actively elevate about 90 degrees before pain limits her. Passive motion above 90 degrees also gives her pain. She has significant weakness to resisted forward elevation with severe pain in the anterolateral shoulder. Rotational movement with the arm the side does not give her pain but once the arm is abducted the rotational motion becomes increasingly painful. PLAN: We discussed her shoulder today, based on the level of weakness and pain recommended MRI to evaluate for possible failure of healing or recurrent rotator cuff tearing as a cause for continued pain and weakness in the shoulder. After this is obtained she should return to see me for discussion of the results and possible treatment planning including revision surgery. Patient may use the shoulder for all activities as tolerated in the meantime. Gentle home stretching was recommended. Large Joint Arthro/Inj: R shoulder joint 02/07/2024 3:27 PM The procedure site was prepped in the usual sterile fashion. Site: R shoulder joint Medications: 80 mg triamcinolone acetonide 40 mg/mL Anesthetics: 4 mL bupivacaine (PF) 0.25 % (2.5 mg/mL) Outcome: Tolerated well, no immediate complications Post-injection instructions were reviewed with the patient and the patient voiced understanding of these instructions. Louis Valencia MD Shoulder AND Elbow Surgeon Department of Orthopaedic Surgery [facility] [place] 01-30-2024 Telephone encounter [facility] checked and validated. All prescriptions have been APPROPRIATELY filled. No suspicious activity was identified. 01/30/2024 by Sam Khan APRN.CNP [facility] 01-30-2024 Miscellaneous Notes PDMP website checked and validated. All prescriptions have been APPROPRIATELY filled. No suspicious activity was identified. 01/30/2024 by Sam Khan APRN.CNP documented in this encounter [facility] 01-25-2024 Note [facility] 01-25-2024 History of Present illness Narrative SUBJECTIVE Pat Knight is a 44 year old female here today for a check up on her medical problems. Chief Complaint Patient presents with: Follow Up: 2 week follow up HPI Pat Knight is a 44 year old female. She is an established patient of Maile Norman MD. Here today for a 2 week follow up. Follow up on right shoulder pain. Post-op from September. Surgery with Dr. Valencia. Up coming follow up with him on 02/06. Current medications for pain include Percocet, meloxicam, muscle relaxer, lidocaine patches and amitriptyline. She also tried Cymbalta but had side effects with that. Has also tried steroid tapers for her pain with little relief. Amitriptyline is causing her side effects. Her medications were reviewed today and her list is now up to date. Medications Current Outpatient Medications Medication Sig oxyCODONE-acetaminophen (PERCOCET) 5-325 mg tablet Take 1 tablet by mouth every 6 hours as needed for pain for up to 7 days. lidocaine (LIDODERM) 5 % Apply 1 Patch as directed every 24 hours. Wear patch for 12 hours and then remove for 12 hours prior to placing new patch, apply to the right shoulder area. tiZANidine (ZANAFLEX) 4 mg tablet Take 1 tablet by mouth every 6 hours as needed. For muscle tightness/pain (muscle relaxer) meloxicam (MOBIC) 15 mg tablet Take 1 tablet by mouth once daily. With food. ondansetron orally disintegrating (ZOFRAN ODT) 4 mg disintegrating tablet Take 1 tablet by mouth every 8 hours as needed for nausea/vomiting. Ibuprofen 200 mg cap Take by mouth every 6 hours as needed for pain. phenylephrine HCl/acetaminophn (EXCEDRIN SINUS HEADACHE ORAL) Take by mouth as needed (headache). albuterol HFA (PROVENTIL HFA, VENTOLIN HFA) 90 mcg/actuation inhaler Inhale 2 Puffs as instructed every 4 hours as needed for wheezing/shortness of breath. traZODone (DESYREL) 100 mg tablet Take 1 tablet by mouth daily at bedtime. acetaminophen (TYLENOL) 325 mg tablet Take 650 mg by mouth every 6 hours as needed. gabapentin (NEURONTIN) 300 mg capsule Take 1 capsule by mouth three times a day for 90 days. No current facility-administered medications for this visit. 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 No further NARCS per PCP. October 03, 2023--update--patient on short term opiates perioperatively; needed recent refill due to acute problem post-op.Following up with ortho Diarrhea Allergic Rhinitis, Cause Unspecified - 04/05/2006 Social History Tobacco Use Smoking status: Every Day Packs/day: 1.00 Years: 30.00 Additional pack years: 0.00 Total pack years: 30.00 Types: Cigarettes Smokeless tobacco: Never Vaping Use Vaping Use: Never used Substance Use Topics Alcohol use: No Drug use: Yes Types: Marijuana Comment: daily Review of Systems Respiratory: Negative. Cardiovascular: Negative. Musculoskeletal: Positive for arthralgias. OBJECTIVE BP 102/66 Pulse 96 Resp 16 Wt 125 lb (56.7kg) LMP 05/07/2009 Physical Exam Vitals and nursing note reviewed. Constitutional: General: She is awake. She is not in acute distress. Appearance: Normal appearance. She is well-developed and well-groomed. She is not ill-appearing, toxic-appearing or diaphoretic. HENT: Head: Normocephalic. Right Ear: External ear normal. Left Ear: External ear normal. Nose: Nose normal. Eyes: General: Vision grossly intact. Conjunctiva/sclera: Conjunctivae normal. Pupils: Pupils are equal, round, and reactive to light. Neck: Vascular: No JVD. Trachea: Trachea normal. Pulmonary: Effort: Pulmonary effort is normal. No accessory muscle usage, prolonged expiration or respiratory distress. Musculoskeletal: Right shoulder: Tenderness and bony tenderness present. Decreased range of motion. Cervical back: Neck supple. Skin: General: Skin is warm and dry. Capillary Refill: Capillary refill takes less than 2 seconds. Neurological: General: No focal deficit present. Mental Status: She is alert and oriented to person, place, and time. Mental status is at baseline. Psychiatric: Attention and Perception: Attention and perception normal. Mood and Affect: Mood and affect normal. Speech: Speech normal. Behavior: Behavior normal. Behavior is cooperative. Thought Content: Thought content normal. Cognition and Memory: Cognition and memory normal. Judgment: Judgment normal. ASSESSMENT/PLAN: 1. Chronic right shoulder pain - ICD9: 719.41, 338.29, ICD10: M25.511, G89.29 (primary diagnosis) Continue with her current regimen of Percocet, meloxicam, muscle relaxer, lidocaine patch, and try gabapentin. Follow up with ortho 02/06. - GABAPENTIN 300 MG CAPSULE 2. Tear of right glenoid labrum, sequela - ICD9: 905.7, ICD10: S43.431S See #1 - GABAPENTIN 300 MG CAPSULE 3. Traumatic tear of right rotator cuff, unspecified tear extent, sequela - ICD9: 905.7, E989, ICD10: S46.011S See #1 - GABAPENTIN 300 MG CAPSULE 4. S/P shoulder surgery - ICD9: V45.89, ICD10: Z98.890 See #1 - GABAPENTIN 300 MG CAPSULE 5. Post-op pain - ICD9: 338.18, ICD10: G89.18 See #1 - GABAPENTIN 300 MG CAPSULE OARRS reviewed and script is appropriate, non-opioids considered. Patient is aware of risks and benefits of opioid medications and their use, including but not limited to risk for addiction. Advised to take medication as prescribed and adhere to the dosing regimen and to use the least amount necessary for the shortest period of time. Discussed possible side effects including constipation. Advised to use caution when operating heavy machinery and driving and to never share or sell medication. Portions of this note have been entered by ancillary staff. I have reviewed and when necessary edited, so that they are an adequate record of my encounter with this patient Please note that parts of this document were created using voice recognition software and therefore may contain grammatical errors. Patient verbalizes understanding of instructions from today's visit and in agreement with treatment plan. Questions answered. Agrees to call the office if questions, concerns of issues with acute symptoms not improving or if they worsen. See diagnoses and orders for additional plan(s). Allergies and medications were reviewed, list was updated, and refills given if needed. Past medical, surgical, social, and family history reviewed and updated as appropriate. Encouraged proper diet & exercise as well as compliance with taking medications. Age-appropriate health preventative measures were discussed. Return in about 4 weeks (around 02/22/2024) for recheck on new medication.. BOO Borrero documented in this encounter [facility] 01-23-2024 Telephone encounter Note PDMP website checked and validated. All prescriptions have been APPROPRIATELY filled. No suspicious activity was identified. 01/23/2024 by Sam Khan APRN.CNP [facility] 01-23-2024 Miscellaneous Notes PDMP website checked and validated. All prescriptions have been APPROPRIATELY filled. No suspicious activity was identified. 01/23/2024 by Sam Khan APRN.CNP documented in this encounter [facility] 01-16-2024 Telephone encounter Note PDMP website checked and validated. All prescriptions have been APPROPRIATELY filled. No suspicious activity was identified. 01/16/2024 by Sam Khan APRN.CNP [facility] 01-16-2024 Miscellaneous Notes PDMP website checked and validated. All prescriptions have been APPROPRIATELY filled. No suspicious activity was identified. 01/16/2024 by Sam Khan APRN.LUIS DANIEL documented in this encounter [facility] 01-11-2024 History of Present illness Narrative SUBJECTIVE Pat Knight is a 43 year old female here today for a check up on her medical problems. Chief Complaint Patient presents with: Medication Follow-up HPI Pat Knight is a 43 year old female. She is an established patient of Maile Norman MD. Here today for a follow up on her shoulder pain. Post-op from September. Surgery done with Dr. Valencia. In regards to medications currently taken for pain management, the patient is tolerating these medications well. No side effects to report, she reports that the medications improve her quality of life and ability to function. She denies misuse, abuse or diversion of medications. Overall her pain is actually worse than the last visit. Sleeping 2-3 hours then pain gets her up. Icing regularly. Percocet still for pain. Meloxicam daily. Cymbalta made her feel funny. Some muscle spasms in the right arm and muscle tightness. Shoulder is tender, no increased erythema, no increased warmth. Her medications were reviewed today and her list is now up to date. Medications Current Outpatient Medications Medication Sig oxyCODONE-acetaminophen (PERCOCET) 5-325 mg tablet Take 1 tablet by mouth every 6 hours as needed for pain for up to 7 days. meloxicam (MOBIC) 15 mg tablet Take 1 tablet by mouth once daily. With food. ondansetron orally disintegrating (ZOFRAN ODT) 4 mg disintegrating tablet Take 1 tablet by mouth every 8 hours as needed for nausea/vomiting. phenylephrine HCl/acetaminophn (EXCEDRIN SINUS HEADACHE ORAL) Take by mouth as needed (headache). albuterol HFA (PROVENTIL HFA, VENTOLIN HFA) 90 mcg/actuation inhaler Inhale 2 Puffs as instructed every 4 hours as needed for wheezing/shortness of breath. traZODone (DESYREL) 100 mg tablet Take 1 tablet by mouth daily at bedtime. acetaminophen (TYLENOL) 325 mg tablet Take 650 mg by mouth every 6 hours as needed. lidocaine (LIDODERM) 5 % Apply 1 Patch as directed every 24 hours. Wear patch for 12 hours and then remove for 12 hours prior to placing new patch, apply to the right shoulder area. tiZANidine (ZANAFLEX) 4 mg tablet Take 1 tablet by mouth every 6 hours as needed. For muscle tightness/pain (muscle relaxer) amitriptyline (ELAVIL) 10 mg tablet Take 1 tablet by mouth daily at bedtime. Ibuprofen 200 mg cap Take by mouth every 6 hours as needed for pain. (Patient not taking: Reported on 01/11/2024) No current facility-administered medications for this visit. 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 No further NARCS per PCP. October 03, 2023--update--patient on short term opiates perioperatively; needed recent refill due to acute problem post-op.Following up with ortho Diarrhea Allergic Rhinitis, Cause Unspecified - 04/05/2006 Social History Tobacco Use Smoking status: Every Day Packs/day: 1.00 Years: 30.00 Additional pack years: 0.00 Total pack years: 30.00 Types: Cigarettes Smokeless tobacco: Never Vaping Use Vaping Use: Never used Substance Use Topics Alcohol use: No Drug use: Yes Types: Marijuana Comment: daily Review of Systems Respiratory: Negative. Cardiovascular: Negative. Musculoskeletal: Positive for arthralgias and myalgias. OBJECTIVE BP 96/62 Pulse 86 Resp 18 Wt 124 lb 6.4 oz (56.4kg) SpO2 94% LMP 05/07/2009 Physical Exam Vitals and nursing note reviewed. Constitutional: General: She is awake. She is not in acute distress. Appearance: Normal appearance. She is well-developed and well-groomed. She is not ill-appearing, toxic-appearing or diaphoretic. HENT: Head: Normocephalic. Right Ear: External ear normal. Left Ear: External ear normal. Nose: Nose normal. Eyes: General: Vision grossly intact. Conjunctiva/sclera: Conjunctivae normal. Pupils: Pupils are equal, round, and reactive to light. Neck: Vascular: No JVD. Trachea: Trachea normal. Pulmonary: Effort: Pulmonary effort is normal. No accessory muscle usage, prolonged expiration or respiratory distress. Musculoskeletal: Right shoulder: Swelling, tenderness and bony tenderness present. No deformity, effusion, laceration or crepitus. Decreased range of motion. Normal pulse. Cervical back: Neck supple. Skin: General: Skin is warm and dry. Capillary Refill: Capillary refill takes less than 2 seconds. Neurological: General: No focal deficit present. Mental Status: She is alert and oriented to person, place, and time. Mental status is at baseline. Psychiatric: Attention and Perception: Attention and perception normal. Mood and Affect: Mood and affect normal. Speech: Speech normal. Behavior: Behavior normal. Behavior is cooperative. Thought Content: Thought content normal. Cognition and Memory: Cognition and memory normal. Judgment: Judgment normal. ASSESSMENT/PLAN: 1. Chronic right shoulder pain - ICD9: 719.41, 338.29, ICD10: M25.511, G89.29 (primary diagnosis) Continue the Percocet and meloxicam. Cymbalta caused unpleasant side effects. Try adding lidocaine patches, muscle relaxer and amitriptyline. Discussed new medication including but not limited to reason for use, possible side effects, administration, signs and symptoms to monitor for and when to seek medical attention. OARRS reviewed and script is appropriate, non-opioids considered. Patient is aware of risks and benefits of opioid medications and their use, including but not limited to risk for addiction. Advised to take medication as prescribed and adhere to the dosing regimen and to use the least amount necessary for the shortest period of time. Discussed possible side effects including constipation. Advised to use caution when operating heavy machinery and driving and to never share or sell medication. - LIDOCAINE 5 % TOPICAL PATCH - TIZANIDINE 4 MG TABLET - AMITRIPTYLINE 10 MG TABLET 2. S/P shoulder surgery - ICD9: V45.89, ICD10: Z98.890 See #1 3. Post-op pain - ICD9: 338.18, ICD10: G89.18 See #1 PDMP website checked and validated. All prescriptions have been APPROPRIATELY filled. No suspicious activity was identified. 01/11/2024 by Sam Khan APRN.CNP Portions of this note have been entered by ancillary staff. I have reviewed and when necessary edited, so that they are an adequate record of my encounter with this patient Please note that parts of this document were created using voice recognition software and therefore may contain grammatical errors. Patient verbalizes understanding of instructions from today's visit and in agreement with treatment plan. Questions answered. Agrees to call the office if questions, concerns of issues with acute symptoms not improving or if they worsen. See diagnoses and orders for additional plan(s). Allergies and medications were reviewed, list was updated, and refills given if needed. Past medical, surgical, social, and family history reviewed and updated as appropriate. Encouraged proper diet & exercise as well as compliance with taking medications. Age-appropriate health preventative measures were discussed. Return in about 2 weeks (around 01/25/2024). BOO Borrero documented in this encounter [facility] 01-11-2024 Note [facility] 01-09-2024 Telephone encounter Note OARRS reviewed and script is appropriate, non-opioids considered. Patient is aware of risks and benefits of opioid medications and their use, including but not limited to risk for addiction. Advised to take medication as prescribed and adhere to the dosing regimen and to use the least amount necessary for the shortest period of time. Discussed possible side effects including constipation. Advised to use caution when operating heavy machinery and driving and to never share or sell medication. PDMP website checked and validated. All prescriptions have been APPROPRIATELY filled. No suspicious activity was identified. 01/09/2024 by Sam Khan APRN.CNP [facility] 01-09-2024 Miscellaneous Notes OARRS reviewed and script is appropriate, non-opioids considered. Patient is aware of risks and benefits of opioid medications and their use, including but not limited to risk for addiction. Advised to take medication as prescribed and adhere to the dosing regimen and to use the least amount necessary for the shortest period of time. Discussed possible side effects including constipation. Advised to use caution when operating heavy machinery and driving and to never share or sell medication. PDMP website checked and validated. All prescriptions have been APPROPRIATELY filled. No suspicious activity was identified. 01/09/2024 by Sam Khan APRN.CNP documented in this encounter [facility] 01-02-2024 Telephone encounter Note PDMP website checked and validated. All prescriptions have been APPROPRIATELY filled. No suspicious activity was identified. 01/02/2024 by Sam Khan APRN.CNP [facility] 01-02-2024 Miscellaneous Notes PDMP website checked and validated. All prescriptions have been APPROPRIATELY filled. No suspicious activity was identified. 01/02/2024 by Sam Khan APRN.CNP documented in this encounter [facility] 12-27-2023 Telephone encounter Note PDMP website checked and validated. All prescriptions have been APPROPRIATELY filled. No suspicious activity was identified. 12/27/2023 by Sam Khan APRN.CNP [facility] 12-27-2023 Miscellaneous Notes PDMP website checked and validated. All prescriptions have been APPROPRIATELY filled. No suspicious activity was identified. 12/27/2023 by Sam Khan APRN.CNP documented in this encounter [facility] 12-20-2023 Note Addended by: SAM KHAN on: 12/20/2023 10:23 AM Modules accepted: Orders [facility] 12-20-2023 Miscellaneous Notes Addended by: SAM KHAN on: 12/20/2023 10:23 AM Modules accepted: Orders documented in this encounter [facility] 12-20-2023 Note [facility] 12-20-2023 History of Present illness Narrative SUBJECTIVE Pat Knight is a 43 year old female here today for a check up on her medical problems. Chief Complaint Patient presents with: Medication Follow-up Pain (Shoulder Pain): right shoulder getting worse since returning to work 3-4 week ago. S/P Shoulder surgery 08/2023 HPI Pat Knight is a 43 year old female. She is an established patient of Maile Norman MD. She presents today for a follow up on shoulder pain. She has been working to reduce her overall use of Percocet. Had shoulder surgery and is s/p right rotator cuff repair with ortho Dr. Valencia as of 08/29/2023. Currently she is taking her Percocet as 1 tablet every 8 hours. 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 Taking tylenol and ibuprofen and does not help much. Her medications were reviewed today and her list is now up to date. Medications Current Outpatient Medications Medication Sig oxyCODONE-acetaminophen (PERCOCET) 5-325 mg tablet Take 1 tablet by mouth every 8 hours as needed for pain for up to 7 days. ondansetron orally disintegrating (ZOFRAN ODT) 4 mg disintegrating tablet Take 1 tablet by mouth every 8 hours as needed for nausea/vomiting. Ibuprofen 200 mg cap Take by mouth every 6 hours as needed for pain. phenylephrine HCl/acetaminophn (EXCEDRIN SINUS HEADACHE ORAL) Take by mouth as needed (headache). albuterol HFA (PROVENTIL HFA, VENTOLIN HFA) 90 mcg/actuation inhaler Inhale 2 Puffs as instructed every 4 hours as needed for wheezing/shortness of breath. traZODone (DESYREL) 100 mg tablet Take 1 tablet by mouth daily at bedtime. acetaminophen (TYLENOL) 325 mg tablet Take 650 mg by mouth every 6 hours as needed. DULoxetine (CYMBALTA) 20 mg capsule Take 1 capsule by mouth once daily. meloxicam (MOBIC) 15 mg tablet Take 1 tablet by mouth once daily. With food. No current facility-administered medications for this visit. 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 No further NARCS per PCP. October 03, 2023--update--patient on short term opiates perioperatively; needed recent refill due to acute problem post-op.Following up with ortho Diarrhea Allergic Rhinitis, Cause Unspecified - 04/05/2006 Social History Tobacco Use Smoking status: Every Day Packs/day: 1.00 Years: 30.00 Additional pack years: 0.00 Total pack years: 30.00 Types: Cigarettes Smokeless tobacco: Never Vaping Use Vaping Use: Never used Substance Use Topics Alcohol use: No Drug use: Yes Types: Marijuana Comment: daily Review of Systems Respiratory: Negative. Cardiovascular: Negative. Musculoskeletal: Positive for arthralgias, joint swelling and myalgias. OBJECTIVE BP 130/80 Pulse 114 Wt 119 lb (54.0kg) SpO2 97% LMP 05/07/2009 Physical Exam Vitals and nursing note reviewed. Constitutional: General: She is awake. She is not in acute distress. Appearance: Normal appearance. She is well-developed and well-groomed. She is not ill-appearing, toxic-appearing or diaphoretic. HENT: Head: Normocephalic. Right Ear: External ear normal. Left Ear: External ear normal. Nose: Nose normal. Eyes: General: Vision grossly intact. Conjunctiva/sclera: Conjunctivae normal. Pupils: Pupils are equal, round, and reactive to light. Neck: Vascular: No JVD. Trachea: Trachea normal. Cardiovascular: Pulses: Normal pulses. Pulmonary: Effort: Pulmonary effort is normal. No accessory muscle usage, prolonged expiration or respiratory distress. Breath sounds: Normal breath sounds. Musculoskeletal: Right shoulder: Tenderness (over lateral bursa) present. No swelling, deformity, effusion, laceration, bony tenderness or crepitus. Decreased range of motion. Normal pulse. Cervical back: Neck supple. Skin: General: Skin is warm and dry. Capillary Refill: Capillary refill takes less than 2 seconds. Neurological: General: No focal deficit present. Mental Status: She is alert and oriented to person, place, and time. Mental status is at baseline. Psychiatric: Attention and Perception: Attention and perception normal. Mood and Affect: Mood and affect normal. Speech: Speech normal. Behavior: Behavior normal. Behavior is cooperative. Thought Content: Thought content normal. Cognition and Memory: Cognition and memory normal. Judgment: Judgment normal. ASSESSMENT/PLAN: 1. Chronic right shoulder pain - ICD9: 719.41, 338.29, ICD10: M25.511, G89.29 (primary diagnosis) Exacerbation of her pain currently with trying to return to work. Keep Percocet dose the same, she continues to be motivated to stop the use of this. Add Cymbalta, will work to titrate up. Also add Meloxicam in place of other NSAIDs. Can still use tylenol PRN. Encouraged icing. Follow up with ortho and PT. - DULOXETINE 20 MG CAPSULE,DELAYED RELEASE - MELOXICAM 15 MG TABLET 2. S/P shoulder surgery - ICD9: V45.89, ICD10: Z98.890 See #1 3. Bursitis of right shoulder - ICD9: 726.10, ICD10: M75.51 See #1 - MELOXICAM 15 MG TABLET Portions of this note have been entered by ancillary staff. I have reviewed and when necessary edited, so that they are an adequate record of my encounter with this patient Please note that parts of this document were created using voice recognition software and therefore may contain grammatical errors. Patient verbalizes understanding of instructions from today's visit and in agreement with treatment plan. Questions answered. Agrees to call the office if questions, concerns of issues with acute symptoms not improving or if they worsen. See diagnoses and orders for additional plan(s). Allergies and medications were reviewed, list was updated, and refills given if needed. Past medical, surgical, social, and family history reviewed and updated as appropriate. Encouraged proper diet & exercise as well as compliance with taking medications. Age-appropriate health preventative measures were discussed. Return in about 3 weeks (around 01/10/2024) for recheck on new medication.. BOO Borrero documented in this encounter [facility] 12-14-2023 Telephone encounter Note PDMP website checked and validated. All prescriptions have been APPROPRIATELY filled. No suspicious activity was identified. 12/14/2023 by Sam Khan APRN.CNP [facility] 12-14-2023 Miscellaneous Notes PDMP website checked and validated. All prescriptions have been APPROPRIATELY filled. No suspicious activity was identified. 12/14/2023 by Sam Khan APRN.LUIS DANIEL Prescription Refill Information The patient has been identified by name and date of : Yes Caregiver verified no other encounters exist for this prescription request: Yes Caregiver confirmed with patient/requestor that no other refills are due, in the near future, with this provider at this time: Yes The last office visit in the department: 11-11-23 Does the patient have a future office visit with this provider/department: Yes (12-20-23) patient had to change today's appt to next - reports her lost his job and she cannot afford to miss work today. Requested Prescriptions Pending Prescriptions Disp Refills oxyCODONE-acetaminophen (PERCOCET) 5-325 mg tablet 21 tablet 0 Sig: Take 1 tablet by mouth every 8 hours as needed for pain for up to 7 days. Sharon Sutherland RN December 14, 2023 8:57 AM documented in this encounter [facility] 12-14-2023 Telephone encounter Note Prescription Refill Information The patient has been identified by name and date of : Yes Caregiver verified no other encounters exist for this prescription request: Yes Caregiver confirmed with patient/requestor that no other refills are due, in the near future, with this provider at this time: Yes The last office visit in the department: 11-11-23 Does the patient have a future office visit with this provider/department: Yes (12-20-23) patient had to change today's appt to next - reports her lost his job and she cannot afford to miss work today. Requested Prescriptions Pending Prescriptions Disp Refills oxyCODONE-acetaminophen (PERCOCET) 5-325 mg tablet 21 tablet 0 Sig: Take 1 tablet by mouth every 8 hours as needed for pain for up to 7 days. Sharon Sutherland RN December 14, 2023 8:57 AM [facility] 12-07-2023 Telephone encounter Note PDMP website checked and validated. All prescriptions have been APPROPRIATELY filled. No suspicious activity was identified. 12/07/2023 by Sam Khan APRN.CNP [facility] 12-07-2023 Miscellaneous Notes PDMP website checked and validated. All prescriptions have been APPROPRIATELY filled. No suspicious activity was identified. 12/07/2023 by Sam Khan APRN.LUIS DANIEL documented in this encounter [facility] 12-01-2023 Telephone encounter Note Noted weaning Percocet The following approved medication requests have been transmitted electronically. Requested Prescriptions Signed Prescriptions Disp Refills ALPRAZolam (XANAX) 0.5 mg tablet 3 tablet 0 Sig: Take 1 tablet by mouth once daily as needed (panic attacks) for up to 3 days. Authorizing Provider: MAILE NORMAN oxyCODONE-acetaminophen (PERCOCET) 5-325 mg tablet 21 tablet 0 Sig: Take 1-2 tablets by mouth every 8 hours as needed for pain for up to 7 days. Authorizing Provider: MAILE NORMAN MD [facility] 12-01-2023 Miscellaneous Notes Noted weaning Percocet The following approved medication requests have been transmitted electronically. Requested Prescriptions Signed Prescriptions Disp Refills ALPRAZolam (XANAX) 0.5 mg tablet 3 tablet 0 Sig: Take 1 tablet by mouth once daily as needed (panic attacks) for up to 3 days. Authorizing Provider: MAILE NORMAN oxyCODONE-acetaminophen (PERCOCET) 5-325 mg tablet 21 tablet 0 Sig: Take 1-2 tablets by mouth every 8 hours as needed for pain for up to 7 days. Authorizing Provider: MAILE NORMAN MD Patient reports she is weaning off of percocet, decreases the Rx by 7 pills each week. Aware pcp and Sam are out today, and asking if [facility] will send the Rx for 21 pills. Patient ran out of medication yesterday. Pended. Reports Sam sends the Rx every Tue, but Sam is out this week. Patient returned call, given provider message and voiced understanding. States that she also needs her percocet refilled. States that Sam has been filling it one week at a time and she is out today. Asking if this can be filled. Please advise. Called and left a voicemail for the Patient to call back and ask for a nurse to receive the providers message. Otilia Douglas RN Recently saw Sam. Noted management of pain med. She was not on pain med when was given Xanax last. Will okay a lower dose for once daily for 3 days. Consider seeing Bev Puckett if need to address medication management of panic attacks. FU as neeeded. The following approved medication requests have been transmitted electronically. Requested Prescriptions Signed Prescriptions Disp Refills ALPRAZolam (XANAX) 0.5 mg tablet 3 tablet 0 Sig: Take 1 tablet by mouth once daily as needed (panic attacks) for up to 3 days. Authorizing Provider: MAILE NORMAN MD Pat is calling today with complaints of a panic attack that has been going on and off for about 3 days with chest discomfort. She is asking for a short supply of xanax to try and break the cycle. Please call patient once addressed. documented in this encounter [facility] 12-01-2023 Telephone encounter Note Patient reports she is weaning off of percocet, decreases the Rx by 7 pills each week. Aware pcp and Sam are out today, and asking if [facility] will send the Rx for 21 pills. Patient ran out of medication yesterday. Pended. Reports Sam sends the Rx every Tue, but Sam is out this week. [facility] 11-30-2023 Telephone encounter Note Patient returned call, given provider message and voiced understanding. States that she also needs her percocet refilled. States that Sam has been filling it one week at a time and she is out today. Asking if this can be filled. Please advise. [facility] 11-29-2023 Telephone encounter Note Called and left a voicemail for the Patient to call back and ask for a nurse to receive the providers message. Otilia Douglas RN [facility] 11-28-2023 Telephone encounter Note Recently saw Sam. Noted management of pain med. She was not on pain med when was given Xanax last. Will okay a lower dose for once daily for 3 days. Consider seeing Bev Puckett if need to address medication management of panic attacks. FU as neeeded. The following approved medication requests have been transmitted electronically. Requested Prescriptions Signed Prescriptions Disp Refills ALPRAZolam (XANAX) 0.5 mg tablet 3 tablet 0 Sig: Take 1 tablet by mouth once daily as needed (panic attacks) for up to 3 days. Authorizing Provider: MAILE NORMAN MD T [facility] 11-28-2023 Telephone encounter Note Pat is calling today with complaints of a panic attack that has been going on and off for about 3 days with chest discomfort. She is asking for a short supply of xanax to try and break the cycle. Please call patient once addressed. [facility] 11-23-2023 Telephone encounter Note She continues to reduce her dose. OARRS reviewed and script is appropriate, non-opioids considered. Patient is aware of risks and benefits of opioid medications and their use, including but not limited to risk for addiction. Advised to take medication as prescribed and adhere to the dosing regimen and to use the least amount necessary for the shortest period of time. Discussed possible side effects including constipation. Advised to use caution when operating heavy machinery and driving and to never share or sell medication. PDMP website checked and validated. All prescriptions have been APPROPRIATELY filled. No suspicious activity was identified. 11/23/2023 by Sam Khan APRN.CNP T [facility] 11-23-2023 Miscellaneous Notes She continues to reduce her dose. OARRS reviewed and script is appropriate, non-opioids considered. Patient is aware of risks and benefits of opioid medications and their use, including but not limited to risk for addiction. Advised to take medication as prescribed and adhere to the dosing regimen and to use the least amount necessary for the shortest period of time. Discussed possible side effects including constipation. Advised to use caution when operating heavy machinery and driving and to never share or sell medication. PDMP website checked and validated. All prescriptions have been APPROPRIATELY filled. No suspicious activity was identified. 11/23/2023 by Sam Khan APRN.CNP documented in this encounter [facility] 11-16-2023 Telephone encounter Note [facility] website checked and validated. All prescriptions have been APPROPRIATELY filled. No suspicious activity was identified. 11/16/2023 by Sam Khan APRN.CNP [facility] 11-16-2023 Miscellaneous Notes PDMP website checked and validated. All prescriptions have been APPROPRIATELY filled. No suspicious activity was identified. 11/16/2023 by Sam Khan APRN.CNP documented in this encounter [facility] 11-11-2023 History of Present illness Narrative SUBJECTIVE Pat Knight is a 43 year old female here today for a check up on her medical problems. Chief Complaint Patient presents with: Medication Follow-up HPI Pat Knight is a 43 year old female. She is an established patient of Maile Norman MD. She presents today for a routine follow up on pain. She is s/p right roator cuff repair with Dr. Valencia. Pt is once per week now. Still some pain but improving. Follow up with ortho soon. In regards to medications currently taken for pain management, the patient is tolerating these medications well. No side effects that she has noticed. She reports that the medications improve her quality of life and ability to function. She denies misuse, abuse or diversion of medications. Overall her pain is better than the last visit. She continues to work on decreasing her overall dose and use of the Percocet. Her medications were reviewed today and her list is now up to date. Medications Current Outpatient Medications Medication Sig oxyCODONE-acetaminophen (PERCOCET) 5-325 mg tablet Take 1-2 tablets by mouth every 8 hours as needed for pain for up to 7 days. ondansetron orally disintegrating (ZOFRAN ODT) 4 mg disintegrating tablet Take 1 tablet by mouth every 8 hours as needed for nausea/vomiting. Ibuprofen 200 mg cap Take by mouth every 6 hours as needed for pain. phenylephrine HCl/acetaminophn (EXCEDRIN SINUS HEADACHE ORAL) Take by mouth as needed (headache). albuterol HFA (PROVENTIL HFA, VENTOLIN HFA) 90 mcg/actuation inhaler Inhale 2 Puffs as instructed every 4 hours as needed for wheezing/shortness of breath. traZODone (DESYREL) 100 mg tablet Take 1 tablet by mouth daily at bedtime. acetaminophen (TYLENOL) 325 mg tablet Take 650 mg by mouth every 6 hours as needed. docusate sodium (COLACE) 100 mg capsule Take 1 capsule by mouth two times a day. (Patient not taking: Reported on 11/11/2023) benzonatate (TESSALON PERLES) 100 mg capsule Take 1 capsule by mouth three times a day as needed. (Patient not taking: Reported on 11/11/2023) No current facility-administered medications for this visit. 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 No further NARCS per PCP. October 03, 2023--update--patient on short term opiates perioperatively; needed recent refill due to acute problem post-op.Following up with ortho Diarrhea Allergic Rhinitis, Cause Unspecified - 04/05/2006 Social History Tobacco Use Smoking status: Every Day Packs/day: 1.00 Years: 30.00 Additional pack years: 0.00 Total pack years: 30.00 Types: Cigarettes Smokeless tobacco: Never Vaping Use Vaping Use: Never used Substance Use Topics Alcohol use: No Drug use: Yes Types: Marijuana Comment: daily Review of Systems Respiratory: Negative. Cardiovascular: Negative. Musculoskeletal: Positive for arthralgias. OBJECTIVE BP 110/82 Pulse 85 Wt 123 lb (55.8kg) SpO2 98% LMP 05/07/2009 Physical Exam Vitals and nursing note reviewed. Constitutional: General: She is awake. She is not in acute distress. Appearance: Normal appearance. She is well-developed and well-groomed. She is not ill-appearing, toxic-appearing or diaphoretic. HENT: Head: Normocephalic. Right Ear: External ear normal. Left Ear: External ear normal. Nose: Nose normal. Eyes: General: Vision grossly intact. Conjunctiva/sclera: Conjunctivae normal. Pupils: Pupils are equal, round, and reactive to light. Neck: Vascular: No JVD. Trachea: Trachea normal. Pulmonary: Effort: Pulmonary effort is normal. No accessory muscle usage, prolonged expiration or respiratory distress. Musculoskeletal: Cervical back: Neck supple. Skin: General: Skin is warm and dry. Capillary Refill: Capillary refill takes less than 2 seconds. Neurological: General: No focal deficit present. Mental Status: She is alert and oriented to person, place, and time. Mental status is at baseline. Psychiatric: Attention and Perception: Attention and perception normal. Mood and Affect: Mood and affect normal. Speech: Speech normal. Behavior: Behavior normal. Behavior is cooperative. Thought Content: Thought content normal. Cognition and Memory: Cognition and memory normal. Judgment: Judgment normal. ASSESSMENT/PLAN: 1. Chronic right shoulder pain - ICD9: 719.41, 338.29, ICD10: M25.511, G89.29 (primary diagnosis) She continues to improve, continues to cut back on her pain medication use. OARRS reviewed and script is appropriate, non-opioids considered. Patient is aware of risks and benefits of opioid medications and their use, including but not limited to risk for addiction. Advised to take medication as prescribed and adhere to the dosing regimen and to use the least amount necessary for the shortest period of time. Discussed possible side effects including constipation. Advised to use caution when operating heavy machinery and driving and to never share or sell medication. 2. Tear of right glenoid labrum, subsequent encounter - ICD9: V58.89, 840.8, ICD10: S43.431D 3. S/P shoulder surgery - ICD9: V45.89, ICD10: Z98.890 4. Post-op pain - ICD9: 338.18, ICD10: G89.18 Portions of this note have been entered by ancillary staff. I have reviewed and when necessary edited, so that they are an adequate record of my encounter with this patient Please note that parts of this document were created using voice recognition software and therefore may contain grammatical errors. Patient verbalizes understanding of instructions from today's visit and in agreement with treatment plan. Questions answered. Agrees to call the office if questions, concerns of issues with acute symptoms not improving or if they worsen. See diagnoses and orders for additional plan(s). Allergies and medications were reviewed, list was updated, and refills given if needed. Past medical, surgical, social, and family history reviewed and updated as appropriate. Encouraged proper diet & exercise as well as compliance with taking medications. Age-appropriate health preventative measures were discussed. Return in about 4 weeks (around 12/09/2023) for Follow up on chronic conditions and medications.. BOO Borrero documented in this encounter [facility] 11-09-2023 Telephone encounter Note She continues to lower her dose/usage. OARRS reviewed and script is appropriate, non-opioids considered. Patient is aware of risks and benefits of opioid medications and their use, including but not limited to risk for addiction. Advised to take medication as prescribed and adhere to the dosing regimen and to use the least amount necessary for the shortest period of time. Discussed possible side effects including constipation. Advised to use caution when operating heavy machinery and driving and to never share or sell medication. [facility] 11-09-2023 Miscellaneous Notes She continues to lower her dose/usage. OARRS reviewed and script is appropriate, non-opioids considered. Patient is aware of risks and benefits of opioid medications and their use, including but not limited to risk for addiction. Advised to take medication as prescribed and adhere to the dosing regimen and to use the least amount necessary for the shortest period of time. Discussed possible side effects including constipation. Advised to use caution when operating heavy machinery and driving and to never share or sell medication. documented in this encounter [facility] 11-04-2023 Telephone encounter Note OARRS reviewed and script is appropriate, non-opioids considered. Patient is aware of risks and benefits of opioid medications and their use, including but not limited to risk for addiction. Advised to take medication as prescribed and adhere to the dosing regimen and to use the least amount necessary for the shortest period of time. Discussed possible side effects including constipation. Advised to use caution when operating heavy machinery and driving and to never share or sell medication. Dose continues to titrate down overall. PDMP website checked and validated. All prescriptions have been APPROPRIATELY filled. No suspicious activity was identified. 11/04/2023 by Sam Khan APRN.CNP [facility] 11-04-2023 Miscellaneous Notes OARRS reviewed and script is appropriate, non-opioids considered. Patient is aware of risks and benefits of opioid medications and their use, including but not limited to risk for addiction. Advised to take medication as prescribed and adhere to the dosing regimen and to use the least amount necessary for the shortest period of time. Discussed possible side effects including constipation. Advised to use caution when operating heavy machinery and driving and to never share or sell medication. Dose continues to titrate down overall. PDMP website checked and validated. All prescriptions have been APPROPRIATELY filled. No suspicious activity was identified. 11/04/2023 by Sam Khan APRN.CNP documented in this encounter [facility] 10-25-2023 History of Present illness Narrative Program_ID:[id number] Access Code: [email or web address] URL: [email or web address]/ Date: 10-25-2023 Prepared By: Yodit Baker Program Notes Exercises - Seated Shoulder Flexion AAROM with Padmini Behind - 2 x daily - 7 x weekly - 4 sets - 10 reps - Supine Shoulder Press AAROM in Abduction with Dowel - 2 x daily - 7 x weekly - 2 sets - 10 reps - Supine Shoulder Flexion AAROM with Dowel - 2 x daily - 7 x weekly - 2 sets - 10 reps - Supine Shoulder External Rotation AAROM with Dowel - 2 x daily - 7 x weekly - 2 sets - 10 reps - Standing Isometric Shoulder External Rotation with Doorway - 1 x daily - 7 x weekly - 5 sets - 1 reps - Standing Isometric Shoulder Internal Rotation with Towel Roll at Doorway - 1 x daily - 7 x weekly - 5 sets - 1 reps - Standing Isometric Shoulder Abduction with Doorway - Arm Bent - 1 x daily - 7 x weekly - 5 sets - 1 reps - Standing Isometric Shoulder Flexion with Doorway - Arm Bent - 1 x daily - 7 x weekly - 5 sets - 1 reps - Standing Isometric Shoulder Extension with Doorway - Arm Bent - 1 x daily - 7 x weekly - 5 sets - 1 reps Images from the original note were not included. Episode Visit Count: 6 Therapist That Will Accept/Oversee The Plan Of Care: Yodit Baker Start of Care Date: 09/05/23 Onset Date: 10/05/22 Plan of Care Certification Date: 10/25/23 Next Certification Due Date: 11/29/23 REHABILITATION AND SPORTS THERAPY PHYSICAL THERAPY PROGRESS REPORT PLAN OF CARE UPDATE: Assessment: Pat Knight demonstrates improvements in reaching behind back, reaching overhead, and use hand with arm at shoulder level. She has progressed toward goals. Patient continues to present with impairments in ADL's, flexibility, independence in exercise, joint mobility, overall function, patient reported outcome measures, posture, range of motion, strength, symptom management, and tissue tenderness that interfere with pushing, carrying, pulling, gripping, weight bearing, use hand with arm at shoulder level, reaching overhead, throwing, sleeping, lifting, dressing, grooming, driving, bed mobility, working, physical activities (using the left hand to drive,) . Current prognosis is Fair due to: chronic nature of impairments, clinical presentation, limited tolerance to activity, poor understanding of deficits, coping skills . She will benefit from continued skilled therapy services to meet the updated goals for this plan of care as noted below. Goals for Episode of Care: created on 09/05/23 through 10/17/23 Goals updated on 10/25/2023 through 11/29/23 [place] in home exercise program. -- MET Patient will decrease pain rating by 2 points to meet minimal clinical important difference for numeric pain rating scale. -- PROGRESSING Patient will increase active ROM of right shoulder forward elevation to 160 degrees or greater to allow pt to to improve performance of ADLs. -- PROGRESSING Patient will demonstrate increase in right elbow biceps flexion and F shoulder flexion strength to 4/5 during manual muscle testing in order to improve function for prior functional tasks. -- PROGRESSING Perform work activities with decreased report of symptoms/pain in 6 weeks. -- PROGRESSING Perform reaching overhead, across, forward, and behind the back with the R shoulder without increased pain. -- MET Improve postural awareness. -- PROGRESSING Patient Goals: retore functional mobility and strength of the dominant RUE -- PROGRESSING Patient Goals: retore functional mobility and strength of the dominant RUE Planned Interventions, Frequency, and Duration: 1x/week, 6 weeks Total Number of Visits Planned: 6 Patient to be seen for Therapeutic exercise (28230), Neuromuscular re-education (59724), Manual therapy (35969), Therapeutic activities (34345), Self-senior living management (89074), Gait Training (16017) PLAN FOR NEXT VISIT: continue progressing toward ROM and strength goals SUBJECTIVE: Pt. reports she thinks she may have over worked her shoulder immediately following surgery. Pt. is using ice and percocet to manage symptoms.. Patient Goals: retore functional mobility and strength of the dominant RUE Functional Limitations: pushing, carrying, pulling, gripping, weight bearing, use hand with arm at shoulder level, reaching overhead, throwing, sleeping, lifting, dressing, grooming, driving, bed mobility, working, physical activities (using the left hand to drive,) Pain: Pain Pain Level: 6 Pain Location: Shoulder - Right Description: Aching Frequency: Continuous, With movement Post Treatment Pain Post Treatment Pain Level: No Change Post Treatment Pain Location: Shoulder - Right PROMIS Scales 10/03/2023 09/05/2023 Higher is Better Phys Func - Score 28 (severe dysfunction) 24 (severe dysfunction) Phys Func - Percentile 1 0 Self-Eff Symptom - Score 37 (Low) 33 (Low) Self-Eff Symptom - Percentile 10 4 T-scores: mean of general population = 50. 5 points is clinically meaningfully difference Percentiles provide an indication of how the patient's score ranks in relation to the general population. Higher percentile rankings indicate better function/quality of life. 50th percentile is the average of the general population and indicates half of respondents had a worse score. OBJECTIVE MEASURES WITH LEVEL OF FUNCTION: Posture / Alignment Posture: Forward head, Increased thoracic kyphosis UE AROM R Shoulder Flex: 150 Degrees (painful endrange) R Shoulder ABduction: 142 Degrees (painful endrange) R Shoulder Internal Rotation (Functional): L2 R Shoulder External Rotation (Functional): C5 UE PROM R Shoulder Flex: 157 Degrees TREATMENT: Therapeutic Exercise: 1: standing R shoulder active flexion and abduction 2x each AROM taken. 2: *Access Code: [email or web address] URL: [email or web address] Date: 10/25/2023 Prepared by: Yodit Guillen Exercises - Seated Shoulder Flexion AAROM with Padmini Behind - 2 x daily - 7 x weekly - 4 sets - 10 reps - 1 hold - Supine Shoulder Press AAROM in Abduction with Dowel - 2 x daily - 7 x weekly - 2 sets - 10 reps - Supine Shoulder Flexion AAROM with Dowel - 2 x daily - 7 x weekly - 2 sets - 10 reps - Supine Shoulder External Rotation AAROM with Dowel (Mirrored) - 2 x daily - 7 x weekly - 2 sets - 10 reps - Standing Isometric Shoulder External Rotation with Doorway - 1 x daily - 7 x weekly - 5 sets - 1 reps - 10 hold - Standing Isometric Shoulder Internal Rotation with Towel Roll at Doorway - 1 x daily - 7 x weekly - 5 sets - 1 reps - 10 hold - Standing Isometric Shoulder Abduction with Doorway - Arm Bent - 1 x daily - 7 x weekly - 5 sets - 1 reps - 10 hold - Standing Isometric Shoulder Flexion with Doorway - Arm Bent - 1 x daily - 7 x weekly - 5 sets - 1 reps - 10 hold - Standing Isometric Shoulder Extension with Doorway - Arm Bent - 1 x daily - 7 x weekly - 5 sets - 1 reps - 10 hold (reduced pain felt with neutral position as opposed to IR at the shoulder during seated pulleys, no increased pain felt during isometrics at wall or after) Skilled Intervention: Patient was educated in proper exercise technique and purpose for exercises. Skilled judgment was used in selection of appropriate interventions. Provided written instruction for home exercise program to facilitate proper performance and compliance. Correct performance of therapeutic exercises was facilitated with verbal, visual, and tactile cuing. Educated patient on rationale for performing exercises in regards to decreasing fatigue , increase ease of ADL, and ROM and function . Patient education as noted. Self-Prison Management: Skilled Intervention: Skilled judgment in the selection of proper modification for activity of daily living/home management based on clinical presentation, deficits, and needs. Provided written instruction for activities of daily living techniques to facilitate proper performance and compliance. Reviewed patient specific diagnosis in relation to activities of daily living/home management. Activity progression based on professional judgement. Moderate verbal cues for maintaining neutral spine alignment. Instructed on proper lifting and carrying techniques with importance of core activation. Provided written instruction for home program to facilitate proper performance and compliance. Correct performance of home program was facilitated with verbal, visual, and tactile cueing. Billing Therapeutic Exercise Treatment Minutes: 40 Skilled Treatment Time Minutes (timed and untimed codes): 40 Total Session Time (minutes): 40 Session Start Time : 1115 Session Stop Time : 1155 Yodit Baker PT documented in this encounter [facility] 10-21-2023 Telephone encounter Note OARRS reviewed and script is appropriate, non-opioids considered. Patient is aware of risks and benefits of opioid medications and their use, including but not limited to risk for addiction. Advised to take medication as prescribed and adhere to the dosing regimen and to use the least amount necessary for the shortest period of time. Discussed possible side effects including constipation. Advised to use caution when operating heavy machinery and driving and to never share or sell medication. PDMP website checked and validated. All prescriptions have been APPROPRIATELY filled. No suspicious activity was identified. 10/21/2023 by Sam Khan APRN.CNP [facility] 10-21-2023 Miscellaneous Notes OARRS reviewed and script is appropriate, non-opioids considered. Patient is aware of risks and benefits of opioid medications and their use, including but not limited to risk for addiction. Advised to take medication as prescribed and adhere to the dosing regimen and to use the least amount necessary for the shortest period of time. Discussed possible side effects including constipation. Advised to use caution when operating heavy machinery and driving and to never share or sell medication. PDMP website checked and validated. All prescriptions have been APPROPRIATELY filled. No suspicious activity was identified. 10/21/2023 by Sam Khan APRN.LUIS DANIEL documented in this encounter [facility] 10-14-2023 History of Present illness Narrative SUBJECTIVE Pat Knight is a 43 year old female here today for a check up on her medical problems. Chief Complaint Patient presents with: Follow Up: right shoulder pain from injury after surgery HPI Pat Knight is a 43 year old female. She presents today for a routine follow up. Still having post-op right shoulder pain. Last visit she was concerned about re-tearing the shoulder. She was seen with ortho surgery, thinks that her shoulder was tweaked and not re-torn. Readdress in 6 weeks. Plan for MRI if still really bothersome. Still doing PT, progressing to stage 2. In regards to medications currently taken for pain management, the patient is tolerating these medications well. No report of side effects, she reports that the medications improve her quality of life and ability to function. She denies misuse, abuse or diversion of medications. Overall her pain is stable since the last visit. She is motivated to reduce her total dosing, planning to cut back use. She has unexpected travel plans for care of her [id number] and will need to refill her percocet early x1. Her medications were reviewed today and her list is now up to date. Medications Current Outpatient Medications Medication Sig oxyCODONE-acetaminophen (PERCOCET) 5-325 mg tablet Take 1-2 tablets by mouth every 6 hours as needed for pain for up to 7 days. Ok for a one time early refill on 10/14/2023 due to unplanned travel. Please call our office if questions or concerns, . predniSONE (DELTASONE) 10 mg tablet Take 2 tabs po BID for 2 days then 1 tab po BID for 2 days then 1/2 tab po BID for 2 days then 1/2 tab daily for 2 days then stop docusate sodium (COLACE) 100 mg capsule Take 1 capsule by mouth two times a day. ondansetron orally disintegrating (ZOFRAN ODT) 4 mg disintegrating tablet Take 1 tablet by mouth every 8 hours as needed for nausea/vomiting. Ibuprofen 200 mg cap Take by mouth every 6 hours as needed for pain. phenylephrine HCl/acetaminophn (EXCEDRIN SINUS HEADACHE ORAL) Take by mouth as needed (headache). albuterol HFA (PROVENTIL HFA, VENTOLIN HFA) 90 mcg/actuation inhaler Inhale 2 Puffs as instructed every 4 hours as needed for wheezing/shortness of breath. benzonatate (TESSALON PERLES) 100 mg capsule Take 1 capsule by mouth three times a day as needed. traZODone (DESYREL) 100 mg tablet Take 1 tablet by mouth daily at bedtime. acetaminophen (TYLENOL) 325 mg tablet Take 650 mg by mouth every 6 hours as needed. No current facility-administered medications for this visit. 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 No further NARCS per PCP. October 03, 2023--update--patient on short term opiates perioperatively; needed recent refill due to acute problem post-op.Following up with ortho Diarrhea Allergic Rhinitis, Cause Unspecified - 04/05/2006 Social History Tobacco Use Smoking status: Every Day Packs/day: 1.00 Years: 30.00 Additional pack years: 0.00 Total pack years: 30.00 Types: Cigarettes Smokeless tobacco: Never Vaping Use Vaping Use: Never used Substance Use Topics Alcohol use: No Drug use: Yes Types: Marijuana Comment: daily Review of Systems Respiratory: Negative. Cardiovascular: Negative. OBJECTIVE BP 132/70 Pulse 107 Resp 12 Ht 5' 5 (1.65m) Wt 123 lb (55.8kg) SpO2 97% LMP 05/07/2009 BMI 20.47 kg/(m^2). Physical Exam Vitals and nursing note reviewed. Constitutional: General: She is awake. She is not in acute distress. Appearance: Normal appearance. She is well-developed and well-groomed. She is not ill-appearing, toxic-appearing or diaphoretic. HENT: Head: Normocephalic. Right Ear: External ear normal. Left Ear: External ear normal. Nose: Nose normal. Eyes: General: Vision grossly intact. Conjunctiva/sclera: Conjunctivae normal. Pupils: Pupils are equal, round, and reactive to light. Neck: Vascular: No JVD. Trachea: Trachea normal. Pulmonary: Effort: Pulmonary effort is normal. No accessory muscle usage, prolonged expiration or respiratory distress. Musculoskeletal: Cervical back: Neck supple. Skin: General: Skin is warm and dry. Capillary Refill: Capillary refill takes less than 2 seconds. Neurological: General: No focal deficit present. Mental Status: She is alert and oriented to person, place, and time. Mental status is at baseline. Psychiatric: Attention and Perception: Attention and perception normal. Mood and Affect: Mood and affect normal. Speech: Speech normal. Behavior: Behavior normal. Behavior is cooperative. Thought Content: Thought content normal. Cognition and Memory: Cognition and memory normal. Judgment: Judgment normal. ASSESSMENT/PLAN: 1. Post-op pain - ICD9: 338.18, ICD10: G89.18 Slowly improving, discussed authorizing early refill x1, no signs misuse or abuse, planning to work on reducing her overall dose. - OXYCODONE-ACETAMINOPHEN 5 MG-325 MG TABLET 2. Chronic right shoulder pain - ICD9: 719.41, 338.29, ICD10: M25.511, G89.29 - OXYCODONE-ACETAMINOPHEN 5 MG-325 MG TABLET 3. Tear of right glenoid labrum, subsequent encounter - ICD9: V58.89, 840.8, ICD10: S43.431D - OXYCODONE-ACETAMINOPHEN 5 MG-325 MG TABLET 4. S/P shoulder surgery - ICD9: V45.89, ICD10: Z98.890 - OXYCODONE-ACETAMINOPHEN 5 MG-325 MG TABLET Portions of this note have been entered by ancillary staff. I have reviewed and when necessary edited, so that they are an adequate record of my encounter with this patient Please note that parts of this document were created using voice recognition software and therefore may contain grammatical errors. Patient verbalizes understanding of instructions from today's visit and in agreement with treatment plan. Questions answered. Agrees to call the office if questions, concerns of issues with acute symptoms not improving or if they worsen. See diagnoses and orders for additional plan(s). Allergies and medications were reviewed, list was updated, and refills given if needed. Past medical, surgical, social, and family history reviewed and updated as appropriate. Encouraged proper diet & exercise as well as compliance with taking medications. Age-appropriate health preventative measures were discussed. Return in 4 weeks (on 11/11/2023), or if symptoms worsen or fail to improve, for Follow up on chronic conditions and medications.. Sam Khan APRN-LUIS DANIEL documented in this encounter [facility] 10-11-2023 Note HNO ID: [id number] Author: LOUIS VALENCIA MD Service: ? Author Type: Physician Type: Progress Notes Filed: 10/12/2023 10:42 Note Text: PAIN EVALUATION 10/10/2023 1237 10/11/2023 1015 Pain Level: 7 6 Pain Location: -- Shoulder-Right Description: Aching;Burning;Itching;Numbness;Stabbi ng;Throbbing Burning;Aching;Sharp Frequency: -- Continuous Intervention/Comfort measure: Medication;Reposition;Relaxation;Cold; Emotional Support/Reassurance;Pillow support;Positioning;Splinting -- Pat Adam presents today for: Second post-surgery follow up CHANGES SINCE LAST VISIT: Doing Phase 1 physical therapy with expected progress. Pain improving. Resp 20 Ht 165.1 cm (5' 5) Wt 55.8 kg (123 lb) LMP 05/07/2009 BMI 20.47 kg/m? EXAMINATION FINDINGS: Incisions healed Mild discomfort with gentle passive range of motion within a limited range. Active elevation to 90 today. No crepitation or catching with movement. IMAGING: No imaging today MEDICAL DECISION MAKING: Functional Plan: Physical therapy Phase 2 Continue lifting limit 1 pound or less, avoid sudden movements with the shoulder Sling may be discontinued. Tylenol/NSAID use encouraged for control of pain. Return in 6 weeks for repeat examination. Information for medical decision making today comes from review of the following data: History, exam, imaging Louis Valencia MD Shoulder AND Elbow Surgeon Department of Orthopaedic Surgery [facility] Medical Decision Making: Medical Decision Making Level: 1 - N/A [facility] 10-11-2023 History of Present illness Narrative Images from the original note were not included. PAIN EVALUATION 10/10/2023 1237 10/11/2023 1015 Pain Level: 7 6 Pain Location: -- Shoulder-Right Description: Aching;Burning;Itching;Numbness;Stabbi ng;Throbbing Burning;Aching;Sharp Frequency: -- Continuous Intervention/Comfort measure: Medication;Reposition;Relaxation;Cold; Emotional Support/Reassurance;Pillow support;Positioning;Splinting -- Pat Knight presents today for: Second post-surgery follow up CHANGES SINCE LAST VISIT: Doing Phase 1 physical therapy with expected progress. Pain improving. Resp 20 Ht 165.1 cm (5' 5) Wt 55.8 kg (123 lb) LMP 05/07/2009 BMI 20.47 kg/m EXAMINATION FINDINGS: Incisions healed Mild discomfort with gentle passive range of motion within a limited range. Active elevation to 90 today. No crepitation or catching with movement. IMAGING: No imaging today MEDICAL DECISION MAKING: Functional Plan: Physical therapy Phase 2 Continue lifting limit 1 pound or less, avoid sudden movements with the shoulder Sling may be discontinued. Tylenol/NSAID use encouraged for control of pain. Return in 6 weeks for repeat examination. Information for medical decision making today comes from review of the following data: History, exam, imaging Louis Valencia MD Shoulder & Elbow Surgeon Department of Orthopaedic Surgery [facility] Medical Decision Making: Medical Decision Making Level: 1 - N/A documented in this encounter [facility] 10-10-2023 History of Present illness Narrative Program_ID:[id number] Access Code: [email or web address] URL: [email or web address] m/ Date: 10-10-2023 Prepared By: Yodit Baker Program Notes Exercises - Flexion-Extension Shoulder Pendulum with Table Support - 2-3 x daily - 7 x weekly - 4 sets - reps - Horizontal Shoulder Pendulum with Table Support - 2-3 x daily - 7 x weekly - 4 sets - reps - Seated Shoulder Flexion AAROM with Padmini Behind - 2-3 x daily - 7 x weekly - 4 sets - 10 reps - Supine Shoulder Press AAROM in Abduction with Dowel - 2-3 x daily - 7 x weekly - 2 sets - 10 reps - Supine Shoulder Flexion AAROM with Dowel - 2-3 x daily - 7 x weekly - 2 sets - 10 reps - Supine Shoulder External Rotation AAROM with Dowel - 2-3 x daily - 7 x weekly - 2 sets - 10 reps Episode Visit Count: 5 Therapist That Will Accept/Oversee The Plan Of Care: Yodit Baker Start of Care Date: 09/05/23 Onset Date: 10/05/22 Plan of Care Certification Date: 09/05/23 Next Certification Due Date: 10/10/23 Patient Identified by Name and Date of : Yes REHABILITATION AND SPORTS THERAPY PHYSICAL THERAPY TREATMENT NOTE ASSESSMENT: Pat Knight tolerated the session with fatigue and expected muscle soreness. She demonstrated improvements in R shoulder flexion AAROM. The patient will continue to benefit from ongoing skilled physical therapy to progress toward set goals. PLAN FOR NEXT VISIT: Continue per reccomendations from Dr. Valencia. SUBJECTIVE: Pt reports that her shoulder is feeling better, burning sensation at head of biceps with moving shoulder in certain position. Pt not wearing the sling. Shoulder is achy by bed time. Pt took a Percocet prior to therapy today. Pain: Pain Pain Level: 3 Pain Location: Shoulder - Right Description: Aching Frequency: Continuous, With movement Post Treatment Pain Post Treatment Pain Level: Better Post Treatment Pain Location: Shoulder - Right OBJECTIVE MEASURES WITH LEVEL OF FUNCTION: UE AROM R Shoulder Flex: 127 Degrees (AAROM with wand in supine) UE PROM R Shoulder Flex: 125 Degrees (with pulleys) TREATMENT: Therapeutic Exercise: 1: Pulleys for forward elevation 2x10 2: *Supine wand AAROM 2x10 3: *Supine wand ER 2x10 4: PROM shoulder flexion and ER 3x10 Skilled Intervention: Patient was educated in proper exercise technique and purpose for exercises. Reviewed and educated patient on additions/changes for home exercise program as above (*). Skilled judgment was used in selection of appropriate interventions. Provided written instruction for home exercise program to facilitate proper performance and compliance. Correct performance of therapeutic exercises was facilitated with verbal and visual cuing. Billing Therapeutic Exercise Treatment Minutes: 33 Skilled Treatment Time Minutes (timed and untimed codes): 33 Total Session Time (minutes): 33 Session Start Time : 1112 Session Stop Time : 1145 UMA Malhotra PT documented in this encounter [facility] 10-03-2023 Miscellaneous Notes Spoke with pt and information listed below given. Pt verbalizes understanding. Amber Minaya LPN Reviewed progress note from recent OV with Sam. Has follow up with PT and ortho. Also has follow up this month with Sam. Okay 1 week RX as ordered before 09/26 to [facility] 10/03 The following approved medication requests have been transmitted electronically. Requested Prescriptions Signed Prescriptions Disp Refills oxyCODONE-acetaminophen (PERCOCET) 5-325 mg tablet 50 tablet 0 Sig: Take 1-2 tablets by mouth every 6 hours as needed for pain for up to 7 days. Do not start before October 04, 2023. Authorizing Provider: MAILE NORMAN MD Requested Prescriptions Pending Prescriptions Disp Refills oxyCODONE-acetaminophen (PERCOCET) 5-325 mg tablet 50 tablet 0 Sig: Take 1-2 tablets by mouth every 6 hours as needed for pain for up to 7 days. Date of last office visit in primary care: 09/27/2023 Date of next office visit in primary care: 10/14/2023 Please advise. Thank you. Tre Perez MA. documented in this encounter [facility] 10-03-2023 History of Present illness Narrative Episode Visit Count: 4 Therapist That Will Accept/Oversee The Plan Of Care: Yodit Baker Start of Care Date: 09/05/23 Onset Date: 10/05/22 Plan of Care Certification Date: 09/05/23 Next Certification Due Date: 10/10/23 Patient Identified by Name and Date of : Yes REHABILITATION AND SPORTS THERAPY PHYSICAL THERAPY TREATMENT NOTE ASSESSMENT: Pat Knight tolerated the session with expected muscle soreness. She demonstrated difficulty with guarding of R shoulder with PROM. The patient will continue to benefit from ongoing skilled physical therapy to progress toward set goals. PLAN FOR NEXT VISIT: Continue per reccomendations from Dr. Valencia. SUBJECTIVE: Pt reports that she went to the ED after Easter, pain was too much to handle. Pt states she may have re-injured her shoulder, has a follow up with Dr. Valencia on [facility] 10/06/23. Pt wearing abduction sling today, trying to remind herself not to use the shoulder. Pt states that she can not get the pain to decrease by the end of her day, using ice and pain meds. Pain: Pain Pain Level: 8 Pain Location: Shoulder - Right Description: Aching, Sharp, Stabbing Frequency: Continuous, With movement Post Treatment Pain Post Treatment Pain Level: 8 Post Treatment Pain Location: Shoulder - Right OBJECTIVE MEASURES WITH LEVEL OF FUNCTION: TREATMENT: Therapeutic Exercise: 1: PROM shoulder flexion and ER 3x10 (slowly due to limited tolerance) Skilled Intervention: Patient was educated in proper exercise technique and purpose for exercises. Skilled judgment was used in selection of appropriate interventions. Correct performance of therapeutic exercises was facilitated with verbal and visual cuing. Billing Therapeutic Exercise Treatment Minutes: 30 Skilled Treatment Time Minutes (timed and untimed codes): 30 Total Session Time (minutes): 30 Session Start Time : 1102 Session Stop Time : 1132 UMA Malhotra PT documented in this encounter [facility] 09-27-2023 History of Present illness Narrative Images from the original note were not included. SUBJECTIVE Pat Knight is a 43 year old female here today for an ER follow up. Chief Complaint Patient presents with: ER F/U: Shoulder HPI Pat Knight is a 43 year old female. She is an established patient of Maile Norman MD. Here today for ER follow up, seen in the ER at [facility] yesterday 09/25. A few days prior she had been cleaning her house in preparation for celebrating . She was felling very good given her recent rotator cuff surgery and was not wearing her sling. Without thinking she went to put her hair in to a pony tail and lifted her right arm up and developed pain. Does not recall having felt a pop or a snap with this. Pain is to the right arm, laterally and posteriorly. Missed PT because of the pain being worse. Went to ER because the pain was getting so bad she did not know what to do. Using her percocet more often and frustrated because she had significantly cut back on use of this. She is waiting to hear back from her ortho surgeon's office. Her medications were reviewed today and her list is now up to date. Medications Current Outpatient Medications Medication Sig docusate sodium (COLACE) 100 mg capsule Take 1 capsule by mouth two times a day. phenylephrine HCl/acetaminophn (EXCEDRIN SINUS HEADACHE ORAL) Take by mouth as needed (headache). albuterol HFA (PROVENTIL HFA, VENTOLIN HFA) 90 mcg/actuation inhaler Inhale 2 Puffs as instructed every 4 hours as needed for wheezing/shortness of breath. benzonatate (TESSALON PERLES) 100 mg capsule Take 1 capsule by mouth three times a day as needed. predniSONE (DELTASONE) 10 mg tablet Take 2 tabs po BID for 2 days then 1 tab po BID for 2 days then 1/2 tab po BID for 2 days then 1/2 tab daily for 2 days then stop oxyCODONE-acetaminophen (PERCOCET) 5-325 mg tablet Take 1-2 tablets by mouth every 6 hours as needed for pain for up to 7 days. ondansetron orally disintegrating (ZOFRAN ODT) 4 mg disintegrating tablet Take 1 tablet by mouth every 8 hours as needed for nausea/vomiting. Ibuprofen 200 mg cap Take by mouth every 6 hours as needed for pain. traZODone (DESYREL) 100 mg tablet Take 1 tablet by mouth daily at bedtime. acetaminophen (TYLENOL) 325 mg tablet Take 650 mg by mouth every 6 hours as needed. No current facility-administered medications for this visit. 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 No further NARCS per PCP. Diarrhea Allergic Rhinitis, Cause Unspecified - 04/05/2006 Social History Tobacco Use Smoking status: Every Day Packs/day: 1.00 Years: 30.00 Additional pack years: 0.00 Total pack years: 30.00 Types: Cigarettes Smokeless tobacco: Never Vaping Use Vaping Use: Never used Substance Use Topics Alcohol use: No Drug use: Yes Types: Marijuana Comment: daily Review of Systems Respiratory: Negative. Cardiovascular: Negative. Musculoskeletal: Positive for arthralgias, joint swelling and myalgias. OBJECTIVE BP 114/60 Pulse 76 Temp (Src) 96.3 (Right Tympanic) Resp 20 Wt 123 lb (55.8kg) LMP 05/07/2009 Physical Exam Vitals and nursing note reviewed. Constitutional: General: She is awake. She is not in acute distress. Appearance: Normal appearance. She is well-developed and well-groomed. She is not ill-appearing, toxic-appearing or diaphoretic. HENT: Head: Normocephalic. Right Ear: External ear normal. Left Ear: External ear normal. Nose: Nose normal. Eyes: General: Vision grossly intact. Conjunctiva/sclera: Conjunctivae normal. Pupils: Pupils are equal, round, and reactive to light. Neck: Vascular: No JVD. Trachea: Trachea normal. Cardiovascular: Pulses: Normal pulses. Pulmonary: Effort: Pulmonary effort is normal. No accessory muscle usage, prolonged expiration or respiratory distress. Musculoskeletal: Right shoulder: Swelling and tenderness present. No deformity, effusion, laceration or crepitus. Decreased range of motion. Decreased strength. Normal pulse. Arms: Cervical back: Neck supple. Comments: Pain is to the posterior-lateral shoulder, inferior to the joint Skin: General: Skin is warm and dry. Capillary Refill: Capillary refill takes less than 2 seconds. Neurological: General: No focal deficit present. Mental Status: She is alert and oriented to person, place, and time. Mental status is at baseline. Psychiatric: Attention and Perception: Attention and perception normal. Mood and Affect: Mood and affect normal. Speech: Speech normal. Behavior: Behavior normal. Behavior is cooperative. Thought Content: Thought content normal. Cognition and Memory: Cognition and memory normal. Judgment: Judgment normal. ASSESSMENT/PLAN: 1. Tear of right rotator cuff, unspecified tear extent, unspecified whether traumatic - ICD9: 840.4, ICD10: M75.101 (primary diagnosis) Post-op shoulder repair and now increased concern of possible re-tear. Her surgeon is planning to call her directly this afternoon, in the mean time we can try a steroid taper to help reduce inflammation and swelling some, short term increase back up on the percocet with the goal still to reduce the use of this. Frequent icing, encouraged use of sling. 2. Tear of right glenoid labrum, subsequent encounter - ICD9: V58.89, 840.8, ICD10: S43.431D - PREDNISONE 10 MG TABLET - OXYCODONE-ACETAMINOPHEN 5 MG-325 MG TABLET 3. S/P shoulder surgery - ICD9: V45.89, ICD10: Z98.890 - PREDNISONE 10 MG TABLET - OXYCODONE-ACETAMINOPHEN 5 MG-325 MG TABLET 4. Post-op pain - ICD9: 338.18, ICD10: G89.18 - PREDNISONE 10 MG TABLET - OXYCODONE-ACETAMINOPHEN 5 MG-325 MG TABLET 5. Chronic right shoulder pain - ICD9: 719.41, 338.29, ICD10: M25.511, G89.29 - PREDNISONE 10 MG TABLET - OXYCODONE-ACETAMINOPHEN 5 MG-325 MG TABLET Sam Khan APRN.LUIS DANIEL Portions of this note have been entered by ancillary staff. I have reviewed and when necessary edited, so that they are an adequate record of my encounter with this patient Please note that parts of this document were created using voice recognition software and therefore may contain grammatical errors. Patient verbalizes understanding of instructions from today's visit and in agreement with treatment plan. Questions answered. Agrees to call the office if questions, concerns of issues with acute symptoms not improving or if they worsen. See diagnoses and orders for additional plan(s). Allergies and medications were reviewed, list was updated, and refills given if needed. Past medical, surgical, social, and family history reviewed and updated as appropriate. Encouraged proper diet & exercise as well as compliance with taking medications. Age-appropriate health preventative measures were discussed. Return if symptoms worsen or fail to improve, for Keep next scheduled appointment.. BOO Borrero documented in this encounter [facility] 09-27-2023 Hospital Discharge instructions Patient Education 09/26/2023 22:06:58 Shoulder Sprain Shoulder Sprain A sprain is a stretching or tearing of the ligaments that hold a joint together. A sprain may take up to 8 weeks to fully heal, depending on how severe it is. Moderate to severe shoulder sprains are treated with a sling or shoulder immobilizer. Minor sprains can be treated without any special support. Home care The following guidelines will help you care for your injury at home: If a sling was given to you, leave it in place for the time advised by your healthcare provider. If you aren t sure how long to wear it, ask for advice. If the sling becomes loose, adjust it so that your forearm is level with the ground. Your shoulder should feel well supported. Put an ice pack on the injured area for 20 minutes every 1 to 2 hours the first day. You can make your own ice pack by putting ice cubes in a plastic bag. A bag of frozen peas or something similar works well too. Wrap the bag in a thin towel. Continue with ice packs 3 to 4 times a day for the next 2 to 3 days. Then use the pack as needed to ease pain and swelling. You may use acetaminophen or ibuprofen to control pain, unless another pain medicine was prescribed. If you have chronic liver or kidney disease, talk with your healthcare provider before using these medicines. Also talk with your provider if you ve had a stomach ulcer or gastrointestinal bleeding. Shoulder joints become stiff if left in a sling for too long. You should start range of motion exercises about 7 to 10 days after the injury. Talk with your provider to find out what type of exercises to do and how soon to start. Follow-up care Follow up with your healthcare provider, or as advised. Any X-rays you had today don t show any broken bones, breaks, or fractures. Sometimes fractures don t show up on the first X-ray. Bruises and sprains can sometimes hurt as much as a fracture. These injuries can take time to heal completely. If your symptoms don t improve or they get worse, talk with your provider. You may need a repeat X-ray or other treatments. When to seek medical advice Call your healthcare provider right away if any of these occur: Shoulder pain or swelling in your arm that gets worse Fingers become cold, blue, numb, or tingly Large amount of bruising of the shoulder or upper arm Fever or chills [id number] [employer] [place] [address]. All rights reserved. This information is not intended as a substitute for professional medical care. Always follow your healthcare professional's instructions. Follow Up Care 09/26/2023 19:29:15 With:Follow-up with your orthopedic surgeon as soon as possible. Address:Unknown When:2-4 days With:MAILE NORMAN Address: [address] [place] [id number] [facility] (1) When:2-4 days Comments:Return to ED if symptoms worsen [facility] 09-26-2023 Emergency department Discharge summary Discharge Instructions Thank you for allowing [facility] to assist you with your healthcare needs. The following is important discharge information regarding your hospital visit. Diagnosis from Today's Visit Shoulder pain Shoulder pain What to Do Next Instructions from Your Care Team No qualifying data available. Post Acute Orders No qualifying data available. You Need to Schedule the Following Appointments Follow Up with Follow-up with your orthopedic surgeon as soon as possible. When Within 2-4 days Follow Up with MAILE NORMAN When Within 2-4 days Why: Return to ED if symptoms worsen Where: [address] [place] [address]- [facility] (1) Allergies LaMICtal Pamprin Maximum Pain codeine Medications Please ask your primary doctor or pharmacist before taking any other medication not listed, including over the counter drugs, herbal medications, vitamins and or supplements as they may interact with your home medications. What How Much When Why Instructions Last Dose Unchanged orphenadrine (orphenadrine 100 mg oral tablet, extended release) 1 tab(s) by mouth Two (2) times a day Duration: 7 Days Unchanged traMADol (traMADol 50 mg oral tablet) 1 tab(s) by mouth Every 4 hours as needed for for pain Shoulder strain Duration: 3 Days Unchanged traZODone (traZODone 100 mg oral tablet) 1 tab(s) by mouth Three (3) times a day Please take this list to your next doctor s visit. Bring all medications you take, including over the counter medications, herbals and other supplements with you to your doctor s visit. Patients and families are reminded to discard old lists and to update any records with all medication providers or retail pharmacies. Education Materials Shoulder Sprain A sprain is a stretching or tearing of the ligaments that hold a joint together. A sprain may take up to 8 weeks to fully heal, depending on how severe it is. Moderate to severe shoulder sprains are treated with a sling or shoulder immobilizer. Minor sprains can be treated without any special support. Home care The following guidelines will help you care for your injury at home: If a sling was given to you, leave it in place for the time advised by your healthcare provider. If you aren t sure how long to wear it, ask for advice. If the sling becomes loose, adjust it so that your forearm is level with the ground. Your shoulder should feel well supported. Put an ice pack on the injured area for 20 minutes every 1 to 2 hours the first day. You can make your own ice pack by putting ice cubes in a plastic bag. A bag of frozen peas or something similar works well too. Wrap the bag in a thin towel. Continue with ice packs 3 to 4 times a day for the next 2 to 3 days. Then use the pack as needed to ease pain and swelling. You may use acetaminophen or ibuprofen to control pain, unless another pain medicine was prescribed. If you have chronic liver or kidney disease, talk with your healthcare provider before using these medicines. Also talk with your provider if you ve had a stomach ulcer or gastrointestinal bleeding. Shoulder joints become stiff if left in a sling for too long. You should start range of motion exercises about 7 to 10 days after the injury. Talk with your provider to find out what type of exercises to do and how soon to start. Follow-up care Follow up with your healthcare provider, or as advised. Any X-rays you had today don t show any broken bones, breaks, or fractures. Sometimes fractures don t show up on the first X-ray. Bruises and sprains can sometimes hurt as much as a fracture. These injuries can take time to heal completely. If your symptoms don t improve or they get worse, talk with your provider. You may need a repeat X-ray or other treatments. When to seek medical advice Call your healthcare provider right away if any of these occur: Shoulder pain or swelling in your arm that gets worse Fingers become cold, blue, numb, or tingly Large amount of bruising of the shoulder or upper arm Fever or chills [id number] [employer]. [address] [place] [address]. All rights reserved. This information is not intended as a substitute for professional medical care. Always follow your healthcare professional's instructions. Additional Information VACCINATE! IT SAVES LIVES! Members of the community who have not yet received the COVID-19 vaccine and would like to receive it can visit one of [facility] vaccine clinics. There are many vaccine clinic locations within the [facility]. For locations and available times, please visit www.gettheshot.coronavirus.[place].gov/. It is important to note that some COVID mobile vaccine clinics are held outdoors and may be canceled in rainy or stormy conditions. To learn more about pediatric vaccinations (ages 5-11), we invite you to visit the [facility] webpage. [email or web address]/[email or web address]-[email or web address]-Frequently-[email or web address] -Questions.html To learn more about the COVID-19 vaccine, we invite you to visit the CDC website for a list of frequently asked questions. https://www.cdc.gov/coronavirus/2019-n cov/vaccines/faq.html [facility] Patient Portal Access Instructions: Stay connected with your healthcare team and access your personal medical information anytime with the [facility] Patient Portal. If you would like a full copy of your medical records please contact the [facility] Medical Records Department Tuesday through Tuesday between 8a.m. and 4:30p.m. Please follow the directions below to access the portal: 1.Access the email account you provided upon registration to the hospital.2.Look for an invitation email from [facility].3.Open the email and access the invitation link: Accept Invitation to [facility]4.Fill in the required moore to create your account. Sign into [email or web address] with your username and password that you created in the above steps to stay up to date. You can then view a summary of results, a summary of your visits, and the ability to download your summaries to your computer or send the information securely to a physician. Remember that your healthcare information is confidential, so carefully consider who you will allow to register on the [facility] Patient Portal for access to your information. You can also access the [facility] Patient Portal on the [employer] lala. Simply click on Health Records under Health Data and then click on the [facility] logo. HOW TO SAFELY DISPOSE OF PRESCRIPTION MEDICATIONS Please use one of the following methods to safely dispose of your unused medications. 1.Use a drug disposal kit: the drug disposal pouch allows you to safely discard your old and unused drugs. Ask your nurse to give you one when you are discharged.2.Visit a local take-back location: Many local pharmacies and police departments have programs that collect old and unwanted prescription drugs. Call your local pharmacy or go to http://Mems-ID.CareinSync/6E9Oy4f to find one close to you.3.Make use of household items: Use cat litter or old coffee grounds to dispose medications if other options are not available. Mix your drugs with these household products, seal them in an airtight container and throw it into the garbage. Call [facility]: [phone] to be sure your drugs can be disposed of in this way. Some medicines may require a different approach.4.Never flush your medications down the toilet. IF YOU HAVE BEEN PRESCRIBED AN OPIOIDS FOR PAIN If you have been prescribed an opioid (such as hydrocodone, oxycodone or morphine), it is critical to understand the possible side effects and risks of opioid pain medications. Even when taken as directed, opioids can have several side effects including: Tolerance, meaning you might need to take more of a medication for the same pain relief. Nausea, vomiting and/or constipation. Sleepiness, dizziness, dry mouth, confusion, depression or itching. Physical dependence, meaning you have withdrawal symptoms when a medication is stopped ? this can develop within a few days. KNOW YOUR RESPONSIBILITIES It is important to know exactly how much and how often to take the opioid pain medications you are prescribed. Never take opioids in higher amounts or more often than prescribed. Do not combine opioids with alcohol or other drugs that cause drowsiness, such as benzodiazepines, also known as benzos, including diazepam and alprazolam, muscle relaxants or sleep aids. Never sell or share prescription opioids. This is illegal. Store opioids in a secure place and out of reach of others (including children, family, friends and visitors). The last page(s) of this document has been signed and retained as a CHART COPY Signatures Patient Education Materials Shoulder Sprain Medication Leaflets My discharge plan and instructions have been reviewed and explained to me and I,PAT KNIGHT understand my current condition and have read and understand these discharge instructions. I have received a written copy of the plan/instructions. If I have questions, I am aware that I should contact my doctor. 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 HISTORY: ORDERING SYSTEM PROVIDED HISTORY: Reason for Exam: pain TECHNIQUE: AP internal rotation, external rotation, transscapular views. FINDINGS: At the level of the proximal right humeral diaphysis, there is a 7 mm metallic foreign body. Correlation with clinical findings may be useful. Joint spaces and articular surfaces are preserved and in gross anatomic alignment. There is no acute cortical discontinuity. IMPRESSION: 1. There is no acute fracture or dislocation. At the level of the proximal right humeral diaphysis, there is a 7 mm metallic foreign body. Correlation with clinical findings may be useful. Interpreted by: Ramakrishna Vasquez Preliminary Report By: Ramakrishna Vasquez Electronically signed By Ramakrishna Vasquez Dictated Date: 09/26/2023 9:37:43 PM Prelim Date: 09/26/2023 9:41:45 PM Sign Date: 09/26/2023 9:41:45 PM [facility]ing [facility] History of Present illness Narrative Episode Visit Count: 2 Therapist That Will Accept/Oversee The Plan Of Care: Yodit Baker Start of Care Date: 09/05/23 Onset Date: 10/05/22 Plan of Care Certification Date: 09/05/23 Next Certification Due Date: 10/10/23 Patient Identified by Name and Date of : Yes REHABILITATION AND SPORTS THERAPY PHYSICAL THERAPY TREATMENT NOTE ASSESSMENT: Pat Knight tolerated the session with fatigue, increased symptoms, and expected muscle soreness. She demonstrated improvements in R shoulder flexibility with pulleys. The patient will continue to benefit from ongoing skilled physical therapy to progress toward set goals. PLAN FOR NEXT VISIT: continue phase I per protocol per pt. tolerance SUBJECTIVE: Pt reports that her shoulder is feeling okay today, was able to shower on her own. Pt states still painful when she jerks it accidently. Pain: Pain Pain Level: 4 (increases to 10/10 when she jerks it a certain way unintentionally.) Pain Location: Shoulder - Right Description: Sharp Frequency: Continuous, With movement Post Treatment Pain Post Treatment Pain Level: 8 Post Treatment Pain Location: Shoulder - Right OBJECTIVE MEASURES WITH LEVEL OF FUNCTION: Improved flexion with continued reps with use of pulleys. TREATMENT: Therapeutic Exercise: 1: Pulleys for forward elevation 2x10 2: PROM shoulder flexion and ER 2x10 3: AROM bicep curls 2x10 4: AROM wrist flexion/extension, circles 2x10 each Skilled Intervention: Patient was educated in proper exercise technique and purpose for exercises. Skilled judgment was used in selection of appropriate interventions. Correct performance of therapeutic exercises was facilitated with verbal and visual cuing. Billing Therapeutic Exercise Treatment Minutes: 41 Skilled Treatment Time Minutes (timed and untimed codes): 41 Total Session Time (minutes): 41 Session Start Time : 1100 Session Stop Time : 1141 Claire HarringtonUMA PT documented in this encounter [facility] 09-15-2023 Miscellaneous Notes Sent to provider with medication request. documented in this encounter [facility] 09-15-2023 Miscellaneous Notes Per Pt valuklikt message from 09/14/23,I had my post off appointment yesterday. I finally got to talk to the doctor in person. He told me my shoulder was way worse than what he initially had thought. He ended up doing two different spots on my rotator cuff. My tendon and my bicep. So I kind of feel like a rockstar with my recovery! I originally didn't know he did the rotator cuff so that might explain why my pain is so severe.. but anyways with that being said I will need a refill on my Percocets but I think I want to try on Tuesday to start taking two every 8 hours. Instead of two every 6 hours. I want to try and get myself off of these if I can and still manage my pain at the same time! But I won't need my refill until Tuesday morning thank you.. Patient has been identified by name and date of : Yes, Provider Dr Norman Date 09/15/23 Time 1604. Patient phones for refill(s): Requested Prescriptions Pending Prescriptions Disp Refills oxyCODONE-acetaminophen (PERCOCET) 5-325 mg tablet 50 tablet 0 Sig: Take 1-2 tablets by mouth every 6 hours as needed for pain for up to 7 days. Date of last office visit in primary care: 09/09/2023 Date of next office visit in primary care: 10/14/2023 Please advise. Thank you. Otilia Douglas RN. documented in this encounter [facility] 09-13-2023 Note HNO ID: [id number] Author: LOUIS VALENCIA MD Service: ? Author Type: Physician Type: Progress Notes Filed: 09/13/2023 13:40 Note Text: PAIN EVALUATION 09/13/2023 1330 Pain Level: 7 Pain Location: Shoulder-Right Description: Aching;Burning;Stabbing Frequency: Continuous Pat Knight presents today for: First post-surgery follow up CHANGES SINCE LAST VISIT: Post-surgical recovery uneventful. Pain appropriately controlled with medication. Wearing sling most of the time. No falls or other injuries. Resp 18 Ht 165.1 cm (5' 5) Wt 57.2 kg (126 lb) LMP 05/07/2009 BMI 20.97 kg/m? EXAMINATION FINDINGS: Mild shoulder edema and ecchymosis. Incisions healing without signs of infection. Mild discomfort with gentle passive range of motion within a limited range. Neurovascularly intact in the shoulder, elbow, wrist, and hand. IMAGING: No imaging today MEDICAL DECISION MAKING: Functional Plan: Physical therapy Phase 1 Lifting limit 1 pound or less, avoid sudden movements with the shoulder Sling use encouraged for comfort and to protect the shoulder when out of the house Wean use of pain medication. Ice the shoulder often. Tylenol/NSAID use encouraged. Return in 4 weeks for repeat examination. Information for medical decision making today comes from review of the following data: History, exam, imaging Louis Valencia MD Shoulder AND Elbow Surgeon Department of Orthopaedic Surgery [facility] Medical Decision Making: Medical Decision Making Level: 1 - N/A [facility] 09-13-2023 History of Present illness Narrative PAIN EVALUATION 09/13/2023 1330 Pain Level: 7 Pain Location: Shoulder-Right Description: Aching;Burning;Stabbing Frequency: Continuous Pat Knight presents today for: First post-surgery follow up CHANGES SINCE LAST VISIT: Post-surgical recovery uneventful. Pain appropriately controlled with medication. Wearing sling most of the time. No falls or other injuries. Resp 18 Ht 165.1 cm (5' 5) Wt 57.2 kg (126 lb) LMP 05/07/2009 BMI 20.97 kg/m EXAMINATION FINDINGS: Mild shoulder edema and ecchymosis. Incisions healing without signs of infection. Mild discomfort with gentle passive range of motion within a limited range. Neurovascularly intact in the shoulder, elbow, wrist, and hand. IMAGING: No imaging today MEDICAL DECISION MAKING: Functional Plan: Physical therapy Phase 1 Lifting limit 1 pound or less, avoid sudden movements with the shoulder Sling use encouraged for comfort and to protect the shoulder when out of the house Wean use of pain medication. Ice the shoulder often. Tylenol/NSAID use encouraged. Return in 4 weeks for repeat examination. Information for medical decision making today comes from review of the following data: History, exam, imaging Louis Valencia MD Shoulder & Elbow Surgeon Department of Orthopaedic Surgery [facility] Medical Decision Making: Medical Decision Making Level: 1 - N/A documented in this encounter [facility] 09-09-2023 Instructions Sam Khan APRN.CNP - 09/09/2023 3:19 PM EDT Goal is for the tylenol use to be 4000 mg or less in 24 hours. Keep icing the shoulder. Okay to keep taking the ibuprofen. We will refill the percocet. documented in this encounter [facility] 09-09-2023 History of Present illness Narrative SUBJECTIVE Pat Knight is a 43 year old female here today for a check up on her medical problems. Chief Complaint Patient presents with: Medication Follow-up HPI Pat Knight is a 43 year old female. She is an established patient of Maile Norman MD. She presents today for a follow up, concerns of pain post-op. She had shoulder surgery on 08/29/[address] Valencia with orthopaedics. Per patient the surgery went well but she is dealing with post-op pain and orthopaedics will not give any more refills on pain medication. Her goal is to decrease her use of this but right now she is starting PT and having a lot of shoulder pain. She is icing. She is also taking tylenol and ibuprofen. Her medications were reviewed today and her list is now up to date. Medications Current Outpatient Medications Medication Sig docusate sodium (COLACE) 100 mg capsule Take 1 capsule by mouth two times a day. ondansetron orally disintegrating (ZOFRAN ODT) 4 mg disintegrating tablet Take 1 tablet by mouth every 8 hours as needed for nausea/vomiting. Ibuprofen 200 mg cap Take by mouth every 6 hours as needed for pain. phenylephrine HCl/acetaminophn (EXCEDRIN SINUS HEADACHE ORAL) Take by mouth as needed (headache). albuterol HFA (PROVENTIL HFA, VENTOLIN HFA) 90 mcg/actuation inhaler Inhale 2 Puffs as instructed every 4 hours as needed for wheezing/shortness of breath. benzonatate (TESSALON PERLES) 100 mg capsule Take 1 capsule by mouth three times a day as needed. traZODone (DESYREL) 100 mg tablet Take 1 tablet by mouth daily at bedtime. acetaminophen (TYLENOL) 325 mg tablet Take 650 mg by mouth every 6 hours as needed. oxyCODONE-acetaminophen (PERCOCET) 5-325 mg tablet Take 1-2 tablets by mouth every 6 hours as needed for pain for up to 7 days. No current facility-administered medications for this visit. 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 No further NARCS per PCP. Diarrhea Allergic Rhinitis, Cause Unspecified - 04/05/2006 Social History Tobacco Use Smoking status: Every Day Packs/day: 1.00 Years: 30.00 Additional pack years: 0.00 Total pack years: 30.00 Types: Cigarettes Smokeless tobacco: Never Vaping Use Vaping Use: Never used Substance Use Topics Alcohol use: No Drug use: Yes Types: Marijuana Comment: daily Review of Systems Respiratory: Negative. Cardiovascular: Negative. Musculoskeletal: Positive for arthralgias and myalgias. OBJECTIVE BP 124/78 Pulse 78 Resp 16 Wt 126 lb (57.2kg) LMP 05/07/2009 Physical Exam Vitals and nursing note reviewed. Constitutional: General: She is awake. She is not in acute distress. Appearance: Normal appearance. She is well-developed and well-groomed. She is not ill-appearing, toxic-appearing or diaphoretic. HENT: Head: Normocephalic. Right Ear: External ear normal. Left Ear: External ear normal. Nose: Nose normal. Eyes: General: Vision grossly intact. Conjunctiva/sclera: Conjunctivae normal. Pupils: Pupils are equal, round, and reactive to light. Neck: Vascular: No JVD. Trachea: Trachea normal. Pulmonary: Effort: Pulmonary effort is normal. No accessory muscle usage, prolonged expiration or respiratory distress. Musculoskeletal: Right shoulder: Decreased range of motion. Cervical back: Neck supple. Comments: Patient right shoulder in immobilizer sling Skin: General: Skin is warm and dry. Capillary Refill: Capillary refill takes less than 2 seconds. Neurological: General: No focal deficit present. Mental Status: She is alert and oriented to person, place, and time. Mental status is at baseline. Psychiatric: Attention and Perception: Attention and perception normal. Mood and Affect: Mood and affect normal. Speech: Speech normal. Behavior: Behavior normal. Behavior is cooperative. Thought Content: Thought content normal. Cognition and Memory: Cognition and memory normal. Judgment: Judgment normal. ASSESSMENT/PLAN: 1. Post-op pain - ICD9: 338.18, ICD10: G89.18 (primary diagnosis) Still with pain, discussed ice, tylenol and NSAID use, refill on percocet as prescribed by ortho with the goal of reducing the dose as able. - OXYCODONE-ACETAMINOPHEN 5 MG-325 MG TABLET 2. Tear of right glenoid labrum, subsequent encounter - ICD9: V58.89, 840.8, ICD10: S43.431D - OXYCODONE-ACETAMINOPHEN 5 MG-325 MG TABLET 3. S/P shoulder surgery - ICD9: V45.89, ICD10: Z98.890 - OXYCODONE-ACETAMINOPHEN 5 MG-325 MG TABLET PDMP website checked and validated. All prescriptions have been APPROPRIATELY filled. No suspicious activity was identified. 09/09/2023 by Sam Khan APRN.CNP Portions of this note have been entered by ancillary staff. I have reviewed and when necessary edited, so that they are an adequate record of my encounter with this patient Please note that parts of this document were created using voice recognition software and therefore may contain grammatical errors. Patient verbalizes understanding of instructions from today's visit and in agreement with treatment plan. Questions answered. Agrees to call the office if questions, concerns of issues with acute symptoms not improving or if they worsen. See diagnoses and orders for additional plan(s). Allergies and medications were reviewed, list was updated, and refills given if needed. Past medical, surgical, social, and family history reviewed and updated as appropriate. Encouraged proper diet & exercise as well as compliance with taking medications. Age-appropriate health preventative measures were discussed.. Return in about 5 weeks (around 10/14/2023) for recheck on pain. BOO Borrero documented in this encounter [facility] 09-05-2023 History of Present illness Narrative Program_ID:[id number] Access Code: [email or web address] URL: [email or web address] Date: 09-05-2023 Prepared By: Yodit Baker Program Notes Exercises - Flexion-Extension Shoulder Pendulum with Table Support - 2-3 x daily - 7 x weekly - 4 sets - reps - Horizontal Shoulder Pendulum with Table Support - 2-3 x daily - 7 x weekly - 4 sets - reps - Seated Shoulder Flexion AAROM with Padmini Behind - 2-3 x daily - 7 x weekly - 4 sets - 10 reps Episode Visit Count: 1 Therapist That Will Accept/Oversee The Plan Of Care: Yodit Baker Start of Care Date: 09/05/23 Onset Date: 10/05/22 Plan of Care Certification Date: 09/05/23 Next Certification Due Date: 10/10/23 Patient Identified by Name and Date of : Yes REHABILITATION AND SPORTS THERAPY PHYSICAL THERAPY EVALUATION PLAN OF CARE: Assessment: Pat Knight presents with diagnosis of bicipital tendinitis of right shoudler that interferes with pushing, carrying, pulling, gripping, weight bearing, use hand with arm at shoulder level, reaching overhead, reaching behind back, throwing, sleeping, lifting, dressing, grooming, driving, bed mobility, working, physical activities . She presents with impairments in ADL's, flexibility, independence in exercise, joint mobility, overall function, patient reported outcome measures, posture, range of motion, strength, symptom management, and tissue tenderness. PROMIS (Patient-Reported Outcomes Measurement Information System) scores were reviewed and identified as a rehabilitation concern. Prognosis for therapy is Fair due to: chronic nature of impairments, clinical presentation, limited tolerance to activity, poor understanding of deficits, coping skills . She will benefit from skilled therapy services to meet the goals established for this plan of care as noted below. Goals for Episode of Care: created on 09/05/23 through 10/17/23 [place] in home exercise program. Patient will decrease pain rating by 2 points to meet minimal clinical important difference for numeric pain rating scale. Patient will increase active ROM of right shoulder forward elevation to 160 degrees or greater to allow pt to to improve performance of ADLs. Patient will demonstrate increase in right elbow biceps flexion and F shoulder flexion strength to 4/5 during manual muscle testing in order to improve function for prior functional tasks. Perform work activities with decreased report of symptoms/pain in 6 weeks. Perform reaching overhead, across, forward, and behind the back with the R shoulder without increased pain. Improve postural awareness. Patient Goals: retore functional mobility and strength of the dominant RUE Planned Interventions, Frequency, and Duration: Current Frequency: 2x/week Duration: 6 weeks Total Number of Visits Planned: 12 Planned Treatment Interventions: Therapeutic exercise (47824), Neuromuscular re-education (06845), Manual therapy (55220), Therapeutic activities (07809), Self-senior living management (48366), Gait Training (42150) PLAN FOR NEXT VISIT: continue phase I per protocol per pt. tolerance Patient demonstrates good understanding of plan of care and treatment. The above goals and plan of care were discussed and agreed upon by patient/family. SUBJECTIVE: for as a result of sliding a box at work with the left shoulder and catching it with the right right side. This happened early September 2022. Immediate pain and limited mobility following this event. Pt. had R biceps tenodesis arthroscopy 08/29/23. Pt. states that she is in a severe amount of pain and her pain medications have been reduced. She took the medication about 60 min before PT eval. Pt. will f/u with surgeon 09/13/23. 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: [employer] Intake Information: Prescription present Previous Treatment: Surgery , Ice Falls Interview: No positive findings with falls interview Pain: Pain Pain Level: 7 Pain Location: Shoulder - Right Description: Sharp Frequency: Continuous Post Treatment Pain Post Treatment Pain Level: Worse Post Treatment Pain Location: Shoulder - Right Post Treatment Symptoms: tearful with attempting pendulums, less tearful but very guarded with padmini PROMIS Scales Higher is Better 09/05/2023 Phys Func - Score 24 (severe dysfunction) Phys Func - Percentile 0% Self-Eff Symptom - Score 33 (Low) Self-Eff Symptom - Percentile 4% T-scores: mean of general population = 50. 5 points is clinically meaningfully difference Percentiles provide an indication of how the patient's score ranks in relation to the general population. Higher percentile rankings indicate better function/quality of life. 50th percentile is the average of the general population and indicates half of respondents had a worse score. OBJECTIVE MEASURES WITH LEVEL OF FUNCTION: Posture / Alignment Posture: Forward head Shoulder Observations R Shoulder Presents with: Comments, Swelling R Shoulder Palpation Tenderness: Bicipital groove Sensation - Upper Extremity UE Light Touch Sensation: Grossly Intact Cervical Spine ROM Cervical ROM : Limitation AROM UE PROM R Shoulder Flex: (unable to assess due to substantial guarding <30) R Elbow Extension: (limited >10 degrees- unable to relax the R elbow into extension at the side) UE Flexibility Flexibility: Upper Trapezius, Levator Scapulae, Pectoral Muscles Education: Education Learning Preferences: Demonstration, Explanation, Performance, Printed Materials Barriers: Emotions Learning/educational needs: Plan of Care, Home exercise program Education Provided: Yes, see treatment interventions for education provided Education Provided To: Patient Education Mode/Type: Performance, Literature/Printed Materials, Demonstration, Explanation/Discussion Response to Education/Teach Back: Requires Review/Additional Education TREATMENT: PT Treatment Interventions: Therapeutic Exercise, Self-Prison Management Evaluation Therapeutic Exercise: 1: *Access Code: [email or web address] URL: [email or web address] Date: 09/05/2023 Prepared by: Yodit Guillen Exercises - Flexion-Extension Shoulder Pendulum with Table Support - 2-3 x daily - 7 x weekly - 4 sets - 30 hold - Horizontal Shoulder Pendulum with Table Support - 2-3 x daily - 7 x weekly - 4 sets - 30 hold - Seated Shoulder Flexion AAROM with Padmini Behind - 2-3 x daily - 7 x weekly - 4 sets - 10 reps - 1 hold (max cues to avoid excessive guarding, scapular elevation, and active elbow flexion/IR with attempts to FE the shoudler with padmini) Skilled Intervention: Patient was educated in proper exercise technique and purpose for exercises. Skilled judgment was used in selection of appropriate interventions. Provided written instruction for home exercise program to facilitate proper performance and compliance. Correct performance of therapeutic exercises was facilitated with verbal, visual, and tactile cuing. Educated patient on rationale for performing exercises in regards to decreasing fatigue , increase ease of ADL, and ROM and function . Patient education as noted. Self-Prison Management: 1: discussed avoiding guarding with codman pendulum exercises 2: disucssed protocol and precautions 3: discussed use of ice and taking meds about 1 hour before PT visits 4: discussed sling worn for comfort per protocol 5: discussed elbow flexion with weight of R hand and cell phone only x 6 weeks Skilled Intervention: Skilled judgment in the selection of proper modification for activity of daily living/home management based on clinical presentation, deficits, and needs. Provided written instruction for activities of daily living techniques to facilitate proper performance and compliance. Reviewed patient specific diagnosis in relation to activities of daily living/home management. Activity progression based on professional judgement. Moderate verbal cues for maintaining neutral spine alignment. Provided written instruction for home program to facilitate proper performance and compliance. Correct performance of home program was facilitated with verbal, visual, and tactile cueing. Billing * Evaluation Low Complexity: 1 Unit Therapeutic Exercise Treatment Minutes: 10 Self-Care/Home Management Treatment Minutes: 15 Skilled Treatment Time Minutes (timed and untimed codes): 45 Total Session Time (minutes): 45 Session Start Time : 1055 Session Stop Time : 1140 Yodit Baker PT documented in this encounter [facility] 09-02-2023 Miscellaneous Notes Pt will run out of pain medication on Tuesday. I have put in a refill to be filled not until Tuesday. Last refill 09-01-23 documented in this encounter [facility] 09-01-2023 Miscellaneous Notes Patient called requesting refill of post-op pain medication. Patients last known Refill Date: 08-29-23, date of surgery Patient Phone numbers: [phone] (home) Request is for script(s) to be escript to pharmacy. Alis Espinosa documented in this encounter [facility] 08-29-2023 Note HNO ID: [id number] Author: ASHTYN SANDERSON RN Service: General Surgery Author Type: Registered Nurse Type: Nursing Progress Note Filed: 08/29/2023 15:07 Note Text: Other: patient dressed with 1 assist [facility] 08-29-2023 Note HNO ID: [id number] Author: ASHTYN SANDERSON RN Service: General Surgery Author Type: Registered Nurse Type: Nursing Progress Note Filed: 08/29/2023 14:49 Note Text: Other: patient sat up [facility] 08-29-2023 Note HNO ID: [id number] Author: BRITT WOODS APRN.CRNA Service: Anesthesiology Author Type: Nurse Strap Cutting Machine Operator Type: Anesthesia Procedure Notes Filed: 08/29/2023 13:17 Note Text: ANESTHESIOLOGY PROCEDURE NOTE Airway General Information Procedure Start Time/Medication Administration: 08/29/2023 1:11 PM Patient location during procedure: OR Timeout Performed Pre-procedure: timeout performed Consent Obtained: Yes Patient identity confirmed: arm band and patient Staffing STABILIZING MACHINE OPERATOR: Britt Woods APRN.STABILIZING MACHINE OPERATOR Performed by: ROHAN Indications and Patient Condition Indications for airway management: anesthesia Preoxygenated: yes anesthesia circuit Patient position: sniffing Method: asleep Difficult Mask: No Final Airway Details Final airway type: endotracheal airway Final Endotracheal Airway: ETT Cuffed: yes Successful intubation technique: direct laryngoscopy Endotracheal tube insertion site: oral Blade: Lata Blade size: #4 ETT size (mm): 7.0 Measured from: lips Measurement (cm): 22 Placement verified by: chest auscultation and capnometry Cormack-Lehane Classification: grade I - full view of glottis Number of attempts at approach: 1 SIGNATURE: Britt Woods APRN.CRNA PATIENT NAME: Pat Knight DATE: August 29, 2023 TIME: 1:17 PM CSN: [id number] [facility] 08-29-2023 Note HNO ID: [id number] Author: OTF MCCLENDON MD Service: Anesthesiology Author Type: Physician Type: Anesthesia Procedure Notes Filed: 08/29/2023 12:03 Note Text: ANESTHESIOLOGY PROCEDURE NOTE Peripheral Nerve Block General Information Procedure Start Time/Medication Administration: 08/29/2023 11:49 AM Procedure End time: 08/29/2023 11:58 AM Patient location during procedure: pre-op Timeout Performed Pre-procedure: timeout performed Consent Obtained: Yes Patient identity confirmed: arm band and patient Reason for block: post-op pain management/at surgeon's request Staffing Anesthesiologist: Otf Mcclendon MD Performed by: anesthesiologist Preparation Sterility Preparation: hand hygiene performed prior to procedure, sterile gloves, drapes, and procedure tray, surgical cap used, mask used, skin prep agent completely dried prior to procedure Site Prep: Chloraprep Procedure Details Patient Position: sitting Monitoring: Pulse OX Block Type Upper Extremity: brachial plexus Approach: interscalene Laterality: right Injection Technique: single-shot Ultrasound Guided: Yes Image in Chart: no Local Infiltration: Yes Needle Needle Type: echogenic Needle Gauge: 22 G Needle Length: 50 mm Needle Localization: anatomical landmarks and ultrasound Assessment Injection assessment: negative aspiration, no paresthesia on injection, incremental injection and local visualized surrounding nerve on ultrasound Paresthesia: none Post-Procedure Neuro Exam Expected Regional Anesthesia: Yes Medications Administered dexamethasone sodium phosphate injection (DECADRON) - peripheral nerve block 4 mg - 08/29/2023 11:49:00 AM midazolam (PF) injection (VERSED) - INTRAVENOUS 2 mg - 08/29/2023 11:49:00 AM ropivacaine (PF) 5 mg/mL (0.5 %) injection (NAROPIN) - peripheral nerve block 20 mL - 08/29/2023 11:49:00 AM SIGNATURE: Otf Mcclendon MD PATIENT NAME: Pat Knight DATE: August 29, 2023 TIME: 12:02 PM CSN: [id number] [facility] 08-23-2023 Miscellaneous Notes Noted, I will watch for her my chart message but certainly we will help to control pain and wean pain medication Patient has upcoming shoulder surgery next Tuesday with [facility]. Expresses her concern of her low pain tolerance and that she will not have strong enough pain control after the procedure. Also concerned about the weaning off of pain medication after her surgery. She has spoken with her shoulder surgeon's office about this concern and they recommended patient voice these concerns to pt's PCP Team as well. Patient states she will be sending a MC message to Sma Khan CNP of her concerns as well. Reassurance was provided to patient that her surgical team as well as her PCP team will assist her with any concerns or questions she may have after her procedure. Shanon Lowe RN documented in this encounter [facility] 08-18-2023 Note HNO ID: [id number] Author: RADHA NERI APRN.LUIS DANIEL Service: ? Author Type: Nurse Practitioner Type: Progress Notes Filed: 08/18/2023 12:15 Note Text: ---- Summary: anesthesia ---- Patient with h/o RSV 08/01/2023 and influenza B 08/11/2023. Treated with 5 days of prednisone. CXR 08/11/2023-WNL. Using albuterol 3 times daily. METS 5.50. Patient states she is feeling much better. Lungs CTA on exam. Reviewed with Dr. Jorge in anesthesia. Per Dr. Jorge, OK to proceed with procedure as planned. Will evaluate patient DOS. Patient instructed in PAT to call surgeon's office if symptoms worsen or if she develops fever. [facility] 08-18-2023 History of Present illness Narrative Summary: anesthesia Patient with h/o RSV 08/01/2023 and influenza B 08/11/2023. Treated with 5 days of prednisone. CXR 08/11/2023-WNL. Using albuterol 3 times daily. METS 5.50. Patient states she is feeling much better. Lungs CTA on exam. Reviewed with Dr. Jorge in anesthesia. Per Dr. Jorge, OK to proceed with procedure as planned. Will evaluate patient DOS. Patient instructed in PAT to call surgeon's office if symptoms worsen or if she develops fever. documented in this encounter [facility] 08-18-2023 Instructions Radha Neri APRN.CNP - 08/18/2023 9:24 AM EST PATIENT PREOPERATIVE INSTRUCTIONS Louis Valencia,* has scheduled you for your procedure at this surgery center: [facility]. [address] [place] [address], [place] [id number] Please read below carefully for your personalized instructions. Date of Surgery:08/29/2023 Your surgeon's office will provide you with your arrival time for surgery if they have not done so already. If you do not have your arrival time for surgery by the afternoon the day before your surgery you can call the surgeon's office. If you are scheduled for a Tuesday surgery you can call the Tuesday before. -Please be aware that emergency situations arise, which may delay or change your surgical time. If this happens, your surgeon's office will notify you as soon as possible and regret any inconvenience. Dietary Restrictions: - No solid food after midnight. - Between midnight and four hours prior to your surgery time, you may have 12 ounces of clear liquids (Apple juice, carbonated beverages, Gatorade, black coffee, water or tea) unless your surgeon specifies otherwise Medications: Pre-Surgery Med Instructions Medication Instructions Ibuprofen 200 mg cap Stop 7 days before surgery phenylephrine HCl/acetaminophn (EXCEDRIN SINUS HEADACHE ORAL) Stop 7 days before surgery albuterol HFA (PROVENTIL HFA, VENTOLIN HFA) 90 mcg/actuation inhaler Bring day of surgery oxyCODONE-acetaminophen (PERCOCET) 5-325 mg tablet Take as needed benzonatate (TESSALON PERLES) 100 mg capsule Take as needed traZODone (DESYREL) 100 mg tablet Continue until night before surgery acetaminophen (TYLENOL) 325 mg tablet Take as needed Blood pressure medications See med list for instructions Take beta mariya day of surgery Do not take JASSI or ARB medications day of surgery Weight loss medications Sympathomimetics such as Adipex-P (Phentermine): Stop 4 days before surgery. Contrave (Naltrexone/Bupropion) Hold 2-3 days. Qsymia (Phentermine/Topiramate - Please contact your prescribing provider for Pre op directions. ( depending on the patients dose this medication may need tapered off. They should get pre op directions from their prescribing provider.) GLP-1 Agonists (oral and injectables) Hold 7 days. Blood Thinning Medications: - Stop NSAIDS (Ibuprofen, Advil, Aleve, Motrin, Celebrex, Mobic, etc.) 7 days before surgery, as directed by your surgeon. - You may take Tylenol (Acetaminophen) or any of your current prescribed pain medications that do not contain aspirin or NSAIDS as needed. - If you take any of the following blood thinners, please contact your surgeon and the physician who prescribes it for you in order to get perioperative instructions as soon as possible Blood thinners: Aspirin,Coumadin, Plavix, Eliquis, Pradaxa, Xarelto, Lovenox, Brilinta, Effient, Savaysa, etc. Supplements - Stop Vitamin E, fish oil, Ginko, [place]'s Wort, flax seed oil, multivitamins, CBD oil, marijuana and other over the counter herbals and dietary supplements 7 days before surgery. This would not apply to cancer patients who are prescribed Marinol or any other prescription form of marijuana or CBD. If you are taking Phentermine please hold 4 days prior to surgery. Pain medications Approved pain medications can be taken the morning of surgery with a sip of water. If you start any new medications after today's visit, please contact the surgeon's office. If you start any new medications after today's visit, please contact the surgeon's office. Approved medications to take the morning of surgery with a sip of water: BP, Heart, thyroid, psych, seizure, and pain medications excluding NSAIDS. Use inhalers as prescribed. Please bring inhalers. If you start any new medications after today's visit, please contact the surgeon's office. Important Reminders: - If you use CPAP/BIPAP, bring the machine with you to the surgery center. - If you are prescribed inhalers for breathing, continue using them AND bring them to the surgery center. - Candy, mints, gum and tobacco products are NOT permitted the morning of surgery. - Hearing aids, dentures and glasses may be worn the morning of surgery. - NO jewelry, body piercings, makeup, hairpins or contacts are to be worn the day of surgery. - NO lotion, creams, powders or deodorants on the skin the day of surgery -Wear loose, comfortable clothing that will accommodate bandages. -Your length of stay will be determined by your surgeon - You will need to have someone else (Family or friend) drive you home once discharged from the hospital. You are not allowed to drive yourself home after surgery. - YOU MUST HAVE A RESPONSIBLE CLEAN ROOM OPERATOR TAKE YOU HOME. A SYSTEMS TECHNOLOGIST, CAB OR UBER CLEAN ROOM OPERATOR CANNOT BE MADE A RESPONSIBLE CLEAN ROOM OPERATOR. - We also require that a responsible person stays with you overnight to take care of you. - You cannot stay in a hotel alone after outpatient surgery. You will not be permitted to have your surgery, if you do not have someone to take care of you. - If you have a stimulator, implant or pump that requires a remote please bring the remote with you day of surgery If you develop symptoms such as a fever, cold, or flu, or have other changes to your health within TWO DAYS of scheduled surgery or the morning of surgery, please contact the surgery center above. Personal Belongings: - Leave ALL valuables and money at home or with family members. - You will need a form of ID and insurance card to check in the morning of surgery. - You will have to wear a hospital gown during your stay but if you wish to bring undergarments for after surgery you may. -If you do not have a copy of advance directives on file with us, please bring a copy with you on the day of surgery. If you already have an Advance Directive, please fax a copy to [phone] or email to for it to be added to your chart. If you do not have an Advance Directive, you can find the appropriate form and more information at [email or web address]. We recommend that you complete the Advance Directive form found on the website and bring it with you the day of your surgery. It can be witnessed and scanned into your chart that day. We are currently allowing 2 visitors in the waiting room. One visitor can accompany you into the pre surgical unit. No visitors are permitted into the PACU. You should have a 72-hour period between getting your vaccine and date of surgery Radha Neri APRN.CNP 08/18/23 documented in this encounter [facility] 08-18-2023 History and physical note HISTORY AND PHYSICAL EXAMINATION SERVICE DATE: 08/17/2023 SERVICE TIME: 12:08 PM PRIMARY CARE PHYSICIAN: Maile Norman MD Implantable Devices: None Patient denies blood thinners Assessment/Plan Bicipital tendinitis of right shoulder [M75.21] PLAN Planned Procedure: Procedure(s) with comments: ARTHROSCOPY SHOULDER BICEPS TENODESIS (Right) - REG - INTERSCALENE BLOCK The Following Tests/Procedures Have Been Initiated: No labs ordered per surgeon in [facility] I spent a total of 40 minutes on the date of the service which included preparing to see the patient, [id number] patient care, completing clinical documentation, obtaining and/or reviewing separately obtained history, performing a medically appropriate examination, counseling and educating the patient/family/caregiver, and communicating with other HCPs (not separately reported). Assessment Patient has the following medical conditions which may affect samir-operative course: Pre-op exam see note for medical conditions which may affect samir-operative course that were addressed at today's visit. Bicipital tendonitis of right shoulder Surgery scheduled 08/29/2023 H/O chronic hepatitis Harvoni in 07/2018 Unsure if finished. 08/24/2018-HCV RNA not detected Tobacco use disorder 30 pack years-smoking 1 PPD Instructed to avoid DOS Marijuana use Daily Migraines treated with Excedrin PRN Lemon Activity Status Index: METS: Climb a flight of stairs or walk up a hill (5.50 METs) DASI Score: 5.5 Patient denies any chest pain or undue shortness of breath with the above physical activity. ARISCAT Score: Age: <=50 Preoperative SpO2: >=96% Respiratory infection in the last month: No Preoperative anemia: No Surgical incision: peripheral Duration of surgery: 2-3 hrs Emergency procedure: No ARISCAT Score: 16 ANESTHESIA FINDINGS: Intubation History: No history of difficult intubation Significant Anesthesia Considerations: none Airway History: No history of difficult airway I - PHYSICAL EVALUATION AIRWAY Patient intubated: No. DENTAL Dental findings: teeth intact. Dentures, upper: partial. II - ANESTHESIA PLAN Anesthetic Plan: general Beta Mariya Monitoring Plan Post Procedure Analgesic Plan Prepared for Surgery: CONSULTS: The following consults have been initiated at this time: anesthesia (will review with anesthesia). Planned Anesthetic: general The Following Tests/Procedures Have Been Initiated: Orders Placed This Encounter Ibuprofen 200 mg cap Sig: Take by mouth every 6 hours as needed for pain. phenylephrine HCl/acetaminophn (EXCEDRIN SINUS HEADACHE ORAL) Sig: Take by mouth as needed (headache). REASON FOR VISIT: Pat Knight is a 43 year old female who is scheduled for Procedure(s) with comments: ARTHROSCOPY SHOULDER BICEPS TENODESIS (Right) - REG - INTERSCALENE BLOCK at the request of Dr. Louis Valencia for routine H&P. My final recommendation will be communicated back to the requesting physician by way of shared medical record or letter. Subjective The patient has the following: ACTIVE PROBLEM LIST Allergic Rhinitis, Cause Unspecified Diarrhea Chronic Pain Depression Anxiety Add (Attention Deficit Hyperactivity Disorder, Inattentive Type) Hepatitis C Virus Infection Without Hepatic Coma Insomnia Tobacco Use Disorder Pre-Op Exam Bicipital Tendonitis of Right Shoulder H/O Chronic Hepatitis Marijuana Use Migraines COVID-19 Immunization Status Postponed - Covid-19 Vaccine (1) Postponed until 01/11/2024 01/10/2023 Postponed until 01/11/2024 by Karen Shore LPN (Declined at this time) 05/12/2021 Postponed until 05/12/2022 by Maile Norman MD (Declined at this time) CHIEF COMPLAINT: The reason for this visit is to perform a comprehensive review of the patient's past medical history, assess their current health status and obtain any additional testing required based on anesthesia guidelines. We will also identify any potential anesthesia problems or contraindications to the planned procedure. HPI: Patient is a 43 year old female who presents for pre surgical testing. She c/o right shoulder pain since she injury sustained in September 2022. She did PT which did not resolve symptoms. Today she rates the pain 5/10. Describes as an aching stabbing pain. Certain movements worsens the pain and rest and percocet improves the pain. After discussion with the surgeon the patient agrees to surgical intervention. REVIEW OF SYSTEMS: General: Positive for: malaise and fever. Negative for: unintentional weight change. Neurological: Positive for: headaches. Negative for: seizures and strokes. Respiratory: + RSV, Flu and pneumonia Positive for: pneumonia within 6 weeks, tobacco use and URI < 2 weeks. Negative for: asthma, COPD and obstructive sleep apnea. Cardiovascular: Positive for: hypertension Negative for: atrial fibrillation, CAD, chest pain, CHF, DVT/PE and hyperlipidemia. GI: Negative for: abdominal pain, GERD, nausea and vomiting. : Negative for: dysuria, hematuria and renal failure. 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 Endocrine: Negative for: diabetes mellitus, hyperthyroidism and hypothyroidism. Hematology: Positive for: anemia. Negative for: factor V Leiden and von Willebrand disease. Oncology: No history of CA metastasis, chemo within 30 days, or radiotherapy within 90 days. No history of oncological symptoms or problems. Psych: Positive for: anxiety and depression. Musculoskeletal: See HPI. Positive for: joint pain. Negative for: back pain. Skin: Negative for lesions, rash and itching. PAST MEDICAL HISTORY Diagnosis Date Abdominal pain, unspecified site Abnormal glandular Papanicolaou smear of cervix 04/08/2006 Abn. 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 No issues in 16 years Depression Diarrhea Irritable bowel syndrome Mental disorders complicating , childbirth, or the puerperium DEPRESSION Migraine, unspecified, with intractable migraine, so stated, without mention of status migrainosus Other and unspecified ovarian cyst PMH - PAST MEDICAL HISTORY OF Narcotic dependence requiring rehab in 2006 Temporomandibular joint disorders, unspecified PAST SURGICAL HISTORY Procedure Laterality Date ADENOIDECTOMY PRIMARY <AGE 14 Adenoidectomy COLPOSCOPY CERVIX UPPER/ADJACENT VAGINA Colposcopy DILATION & CURETTAGE DX&/THER NONOBSTETRIC 2001 Dilation & curettage,TAB ESOPHAGOGASTRODUODENOSCOPY TRANSORAL DIAGNOSTIC 11/01/11 EGD [facility] inpt H-pylori negative LIG/TRNSXJ FLP TUBE ABDL/VAG APPR UNI/BI 04/09/2006 Tubal ligation MYRINGOTOMY ASPIR&/EUSTACHIAN TUBE NFLTJ ANES 1994 Myringotomy/tubes OOPHORECTOMY PARTIAL/TOTAL UNI/BI left TONSILLECTOMY PRIMARY/SECONDARY <AGE 14 1987 Tonsillectomy FAMILY HISTORY Problem Relation Age of Onset Psychiatry Mother DEPRESSION Hypertension Father Cervical Cancer Maternal Grandmother Hypertension Maternal Grandmother Cancer Maternal Grandfather BLADDER Heart Maternal Grandfather SC & EMPHYSEMA Social History Tobacco Use Smoking status: Every Day Packs/day: 1.00 Years: 30.00 Additional pack years: 0.00 Total pack years: 30.00 Types: Cigarettes Smokeless tobacco: Never Vaping Use Vaping Use: Never used Substance Use Topics Alcohol use: No Drug use: Yes Types: Marijuana Prior to Admission medications as of 08/18/23 0907 Medication Sig Last Dose Taking Ibuprofen 200 mg cap Take by mouth every 6 hours as needed for pain. Taking Yes phenylephrine HCl/acetaminophn (EXCEDRIN SINUS HEADACHE ORAL) Take by mouth as needed (headache). Taking Yes albuterol HFA (PROVENTIL HFA, VENTOLIN HFA) 90 mcg/actuation inhaler Inhale 2 Puffs as instructed every 4 hours as needed for wheezing/shortness of breath. Taking Yes oxyCODONE-acetaminophen (PERCOCET) 5-325 mg tablet Take 1 tablet by mouth every 8 hours as needed for pain for up to 14 days. Do not start before August 15, 2023. Taking Yes benzonatate (TESSALON PERLES) 100 mg capsule Take 1 capsule by mouth three times a day as needed. Taking Yes traZODone (DESYREL) 100 mg tablet Take 1 tablet by mouth daily at bedtime. Taking Yes acetaminophen (TYLENOL) 325 mg tablet Take 650 mg by mouth every 6 hours as needed. Taking Yes No medication comments found. ALLERGIES Allergen Reactions Pamprin Multi-Sympt* Rash, Itching, Shortness of Breath Severe itching all over body, slight rash, hyper ventilating, lips swelled badly Buspar [Buspirone] Mental Status Change Caused suicidal thoughts Codeine Hives, Itching Lamotrigine Hives Nitrofurantoin Macr* Unknown Promethazine-Phenyl* Intolerance Make her feel like passing out Objective PHYSICAL EXAM: General: alert and oriented and healthy appearance. Pertinent negatives noted - not distressed. Skin: normal color, no rash or lesions. HEENT: pupils equal round. Cardiovascular: regular rate and rhythm, normal S1 and S2, no rub, murmurs, or gallop. Pulse characterized as regular. Respiratory: normal breath sounds, no wheezes or crackles. No chest wall deformity or tenderness. Abdomen: bowel sounds present. Extremities: no deformity, no edema or tenderness, no joint swelling or clubbing. Neurological: normal cognition and motor skills. Gait normal. No weakness or sensory deficit. PAIN ASSESSMENT: Pain Pain Level: 5 VITALS: BP 124/60 Pulse 92 Temp 98.6 Resp 16 Ht 5' 5 (1.65m) Wt 122 lb (55.3kg) SpO2 98% LMP 05/07/2009 BMI 20.30 kg/(m^2). Diagnostic tests reviewed for today's visit: Lab Value Units Date High Low HB 14.2 g/dL 03/30/2023 15.5 11.5 HCT 41.8 % 03/30/2023 46.0 36.0 WBC 12.84 k/uL 03/30/2023 11.00 3.70 PLT 331 k/uL 03/30/2023 400 150 NA No results within date range. K No results within date range. GLUC No results within date range. BUN No results within date range. CREAT No results within date range. PTSEC No results within date range. INR No results within date range. APTT No results within date range. ALT No results within date range. AST No results within date range. TBILI No results within date range. TSH No results within date range. Lab Value Units Date High Low HCGQT No results within date range. UHCG No results within date range. HCG, BODY* No results within date range. Lab Value Units Date High Low ABORHD No results within date range. ABSCREEN No results within date range. No results found for: HBA1C Recent Results (from the past 8760 hour(s)) ECG COMPLETE Collection Time: 04/30/23 9:41 AM Result Value Ventricular Rate 137 Atrial Rate 137 P-R Interval 124 QRS Duration 68 QT Interval 372 QTC Calculation (Bazett) 561 Calculated P Sherman 60 Calculated R Sherman 81 Calculated T Sherman 53 Impression SINUS TACHYCARDIA POSSIBLE LEFT ATRIAL ENLARGEMENT NONSPECIFIC ST AND T WAVE ABNORMALITY ABNORMAL ECG No results found for this or any previous visit (from the past 01283 hour(s)). Instructions Given to Patient: Instructions located in the after visit summary. Patient given verbal and written preop instructions and voices comprehension and compliance. SIGNATURE: Radha Neri APRN.CNP PATIENT NAME: Pat Knight DATE: August 17, 2023 TIME: 8:56 AM PAGER/CONTACT #: documented in this encounter [facility] 08-12-2023 Miscellaneous Notes Spoke with pt and information listed below given. Pt verbalizes understanding. Amber Minaya LPN Left VM instructing patient to return call to receive results. Jodi Brasher MA Please notify positive for flu B Typically course is 5-7 days Push fluids Continue with plan as discussed during visit documented in this encounter [facility] 08-11-2023 Miscellaneous Notes August 11, 2023 9:02 am Called pt and educated her about the xray results and treatment plan: 1. Acute cough - ICD9: 786.2, ICD10: R05.1 (primary diagnosis) - XR CHEST 2V FRONTAL/LAT RESULT: Lines, tubes, and devices: None. Lungs and pleura: No consolidation, pleural effusion or pneumothorax. Cardiomediastinal silhouette: Normal cardiomediastinal silhouette. Bones and soft tissues: Unremarkable. - ALBUTEROL SULFATE HFA 90 MCG/ACTUATION AEROSOL INHALER - INHALATIONAL SPACING DEVICE - COVID & INFLUENZA A/B NAAT, ROUTINE - Prednisone Taper 2. Viral bronchitis - ICD9: 466.0, ICD10: J20.8 - ALBUTEROL SULFATE HFA 90 MCG/ACTUATION AEROSOL INHALER - INHALATIONAL SPACING DEVICE - Prednisone Taper Educated that the steroid will help with the inflammation in the lungs and the albuterol inhaler will help open up the lungs. Pt verbalizes understanding of assessment and treatment and is agreeable to treatment plan. TIKA Degroto documented in this encounter [facility] 08-11-2023 Instructions oTri Jc - 08/11/2023 8:59 AM EST ASSESSMENT/PLAN: 1. Acute cough - ICD9: 786.2, ICD10: R05.1 (primary diagnosis) - XR CHEST 2V FRONTAL/LAT RESULT: Lines, tubes, and devices: None. Lungs and pleura: No consolidation, pleural effusion or pneumothorax. Cardiomediastinal silhouette: Normal cardiomediastinal silhouette. Bones and soft tissues: Unremarkable. - ALBUTEROL SULFATE HFA 90 MCG/ACTUATION AEROSOL INHALER - INHALATIONAL SPACING DEVICE - COVID & INFLUENZA A/B NAAT, ROUTINE - Prednisone Taper 2. Viral bronchitis - ICD9: 466.0, ICD10: J20.8 - ALBUTEROL SULFATE HFA 90 MCG/ACTUATION AEROSOL INHALER - INHALATIONAL SPACING DEVICE - Prednisone Taper HOW TO USE A METERED DOSE INHALER WITH AEROCHAMBER SPACER Inhaled asthma medications are often taken by using a device called a metered dose inhaler, or MDI. The MDI is a small aerosol canister in a plastic chavis. It lets out a burst of medication when it is pressed down from the top. The MDI is an aerosol and its contents are under pressure. Do not puncture or store near heat or an open flame. Your physician has ordered an inhaler to be used with a spacer device. A spacer is a chamber that attaches to the MDI and holds the burst of medication. It helps get more medication into the lungs and allows you to take medication when you are ready. TO USE THE MDI AND AEROCHAMBER SPACER Remove the cap from the MDI. Insert the MDI into the soft ring at the end of the spacer. Shake well [address] mouthpiece of the spacer between your teeth and seal your lips tightly around it. Breathe out into the mouthpiece to empty your lungs. Press the canister once. Breathe in slowly and completely through your mouth. (Do not breath through your nose.) If you hear a hornlike sound, you are breathing too quickly and need to slow down. Hold your breath for at least 10 seconds to allow the medication to deposit in the lungs. Repeat the above steps after waiting at least 1 minute. Some MDI's require more than 2 puffs. When treatment is complete, remove the MDI from the spacer. If using a cortisone inhaler like Flovent or Adviar rinse your mouth with water and spit. CARING FOR YOUR MDI AND SPACER Rinse the plastic chavis of the MDI with warm water every 1 to 2 days to prevent the holes from getting clogged. Clean the spacer every other day. (If you are using the spacer intermittently, you may only need to clean it once a week.) Remove the soft ring at the end of the spacer and soak the spacer and ring in warm water with mild detergent. Rinse well in warm water. Air dry completely or dry carefully with a paper towel before putting back together. CHECKING YOUR METER DOSE INHALER The number of puffs contained in your metered dose inhaler is printed on the side of the canister. After you have used that number of puffs, you must discard the inhaler even if it continues to spray. MDI canisters will provide about fifty puffs of propellant after all the medication is gone. Keep track of how many puffs you have used. If you use an MDI every day for prevention, you can determine how long it will last by dividing the total number of puffs in the MDI by the total puffs you use every day. (For example, your MDI has 200 puffs and you use a total of 4 puffs per day. Divide 200 by 4 and your MDI will last 50 days.) If you use an inhaler only when you need to, you must keep track of how many times you spray the inhaler. If you prefer, you can obtain a device that counts down the number of puffs each time you press the inhaler. Ask your health caregivers homecare for more information on these devices. documented in this encounter [facility] 08-11-2023 History of Present illness Narrative Subjective Cough Associated symptoms include ear pain, headaches, sore throat, shortness of breath and wheezing. Pertinent negatives include no chest pain and no chills. Pt presents to clinic on August 11, 2023 for CC cough, chest congestion, headache and fever Positive for RSV on 08/01/22 Cough x 2 days- productive and constant Wheezing Fever 101 Lungs hurt Frontal intermittent headache- 5/10 and achy Short of breath and difficult to breathe with pain with breathing Fatigue, nasal congestion, rhinorrhea, mild sore throat Denies chills, dizziness, sinus pain, eye issues, postnasal drip, n/v Diarrhea started yesterday Peeing okay Sleeping okay- has night sweats Eating and drinking well Sick exposures- friend who has strep and a grandson that has RSV, flu B and ear infection Meds taken: percocet (is on regularly), tylenol, cough meds, and ibuprofen Review of Systems Constitutional: Positive for fever and malaise/fatigue. Negative for chills. HENT: Positive for congestion, ear pain and sore throat. Negative for ear discharge and sinus pain. Eyes: Negative for pain. Respiratory: Positive for cough, sputum production, shortness of breath and wheezing. Cardiovascular: Negative for chest pain. Gastrointestinal: Positive for diarrhea. Negative for abdominal pain, constipation, nausea and vomiting. Genitourinary: Negative for dysuria. Neurological: Positive for headaches. Negative for dizziness. BP 127/83 Pulse 107 Temp 37.5 C (99.5 F) Resp 22 Wt 56.2 kg (124 lb) LMP 05/07/2009 SpO2 97% BMI 20.63 kg/m PAST MEDICAL HISTORY Diagnosis Date Abdominal pain, unspecified site Abnormal glandular Papanicolaou smear of cervix 04/08/2006 Abn. Pap smear (cervix) Allergic rhinitis, cause unspecified 04/05/2006 Anxiety Congestive heart failure (HCC) Depression Diarrhea Hypertension Irritable bowel syndrome Mental disorders complicating , childbirth, or the puerperium DEPRESSION Migraine, unspecified, with intractable migraine, so stated, without mention of status migrainosus Other and unspecified ovarian cyst PMH - PAST MEDICAL HISTORY OF Narcotic dependence requiring rehab in 2006 Temporomandibular joint disorders, unspecified PAST SURGICAL HISTORY Procedure Laterality Date ADENOIDECTOMY PRIMARY <AGE 14 Adenoidectomy COLPOSCOPY CERVIX UPPER/ADJACENT VAGINA Colposcopy DILATION & CURETTAGE DX&/THER NONOBSTETRIC 2001 Dilation & curettage,TAB ESOPHAGOGASTRODUODENOSCOPY TRANSORAL DIAGNOSTIC 11/01/11 EGD [facility] inpt H-pylori negative LIG/TRNSXJ FLP TUBE ABDL/VAG APPR UNI/BI 04/09/2006 Tubal ligation MYRINGOTOMY ASPIR&/EUSTACHIAN TUBE NFLTJ ANES 1994 Myringotomy/tubes OOPHORECTOMY PARTIAL/TOTAL UNI/BI left TONSILLECTOMY PRIMARY/SECONDARY <AGE 14 1988 Tonsillectomy ALLERGIES Pamprin Multi-Symptom [Jjuwaskohamex-Xszdnkqg-Ccmvsoi], Buspar [Buspirone], Codeine, Lamotrigine, Nitrofurantoin Macrocrystal, and Promethazine-Phenylephrine MEDICATIONS [START ON 08/15/2023] oxyCODONE-acetaminophen (PERCOCET) 5-325 mg tablet Take 1 tablet by mouth every 8 hours as needed for pain for up to 14 days. Do not start before August 15, 2023. benzonatate (TESSALON PERLES) 100 mg capsule Take 1 capsule by mouth three times a day as needed. traZODone (DESYREL) 100 mg tablet Take 1 tablet by mouth daily at bedtime. oxyCODONE-acetaminophen (PERCOCET) 5-325 mg tablet Take by mouth every 8 hours as needed for pain. cyclobenzaprine HCl (FLEXERIL ORAL) Take by mouth. acetaminophen (TYLENOL) 325 mg tablet Take 650 mg by mouth every 6 hours as needed. FAMILY HISTORY Problem Relation Age of Onset Psychiatry Mother DEPRESSION Hypertension Father Cervical Cancer Maternal Grandmother Hypertension Maternal Grandmother Cancer Maternal Grandfather BLADDER Heart Maternal Grandfather SC & EMPHYSEMA Social History Tobacco Use Smoking status: Every Day Packs/day: 1.00 Years: 14.00 Additional pack years: 0.00 Total pack years: 14.00 Types: Cigarettes Smokeless tobacco: Never Vaping Use Vaping Use: Never used Substance Use Topics Alcohol use: No Drug use: Yes Types: Marijuana Objective Physical Exam Constitutional: General: She is not in acute distress. Appearance: Normal appearance. She is ill-appearing. She is not toxic-appearing or diaphoretic. HENT: Head: Normocephalic. Right Ear: Tympanic membrane, ear canal and external ear normal. There is no impacted cerumen. Left Ear: Tympanic membrane, ear canal and external ear normal. There is no impacted cerumen. Nose: Congestion and rhinorrhea present. Mouth/Throat: Pharynx: Posterior oropharyngeal erythema present. No oropharyngeal exudate. Eyes: General: Right eye: No discharge. Left eye: No discharge. Conjunctiva/sclera: Conjunctivae normal. Cardiovascular: Rate and Rhythm: Normal rate and regular rhythm. Heart sounds: Normal heart sounds. Pulmonary: Effort: No respiratory distress. Breath sounds: No stridor. Wheezing present. No rhonchi or rales. Chest: Chest wall: Tenderness present. Neurological: Mental Status: She is alert and oriented to person, place, and time. Psychiatric: Behavior: Behavior normal. Thought Content: Thought content normal. Judgment: Judgment normal. ASSESSMENT/PLAN: 1. Acute cough - ICD9: 786.2, ICD10: R05.1 (primary diagnosis) - XR CHEST 2V FRONTAL/LAT RESULT: Lines, tubes, and devices: None. Lungs and pleura: No consolidation, pleural effusion or pneumothorax. Cardiomediastinal silhouette: Normal cardiomediastinal silhouette. Bones and soft tissues: Unremarkable. - ALBUTEROL SULFATE HFA 90 MCG/ACTUATION AEROSOL INHALER - INHALATIONAL SPACING DEVICE - COVID & INFLUENZA A/B NAAT, ROUTINE - Prednisone Taper 2. Viral bronchitis - ICD9: 466.0, ICD10: J20.8 - ALBUTEROL SULFATE HFA 90 MCG/ACTUATION AEROSOL INHALER - INHALATIONAL SPACING DEVICE - Prednisone Taper TIKA Degroot TEACHING PROVIDER (Physician/PA/TREE DRILLER) NOTE OF PERSONAL INVOLVEMENT IN CARE: I have personally seen and examined the patient and performed the medical decision-making components. I have reviewed the Advanced Practice Registered Nurse (TREE DRILLER) Student's documentation and verified the findings in the note as written. Any additions or changes are noted in bold/italics. Signature: Pennie Clemente Date: 08/11/2023 Time: 9:18 AM documented in this encounter [facility] 08-09-2023 Note HNO ID: [id number] Author: LOUIS VALENCIA MD Service: ? Author Type: Physician Type: Progress Notes Filed: 08/09/2023 13:18 Note Text: PAIN EVALUATION 08/09/2023 1252 Pain Level: 5 Pain Location: Shoulder-Right Description: Dull;Aching;Sharp Duration Units: Years Frequency: Intermittent Intervention/Comfort measure: Medication;Reposition;Relaxation Encounter Diagnosis ICD-10-CM 1. Biceps tendinitis of right upper extremity M75.21 Pat Knight presents today for evaluation of her right shoulder. She has been referred by my partner Dr. Rios for treatment of pain following an injury sustained in September 2022 when she reached out with the right arm to catch something heavy at work and had sudden onset of pain in the anterior and lateral shoulder. This has not resolved despite conservative treatment with physical therapy. Pain is described as being dull at rest and sharper with movement. It is felt primarily over the anterior and lateral shoulder. It will sometimes radiate to the elbow. The pain affects lifting, reaching, and rotational activities. The pain is often worse at night. Shoulder Musculoskeletal Exam Inspection Right Ecchymosis: none Peripheral edema: none Atrophy: none Symmetry: symmetric Masses: none Skin tenting: none Prior incision: none Palpation Right Crepitus: mild Increased warmth: none Tenderness: present Anterior shoulder: moderate Posterior shoulder: mild Bicipital groove: moderate Proximal biceps: moderate Range of Motion Right Active ROM: abnormal and pain. Passive ROM: abnormal and pain. Active forward elevation: 140. Passive forward elevation: 150. Shoulder active abduction: 90. Passive abduction: 90. Active external rotation at side: 60. Passive external rotation at side: 60. Active external rotation in abduction: 60. Passive external rotation in abduction: 60. Active internal rotation in abduction: 40. Passive internal rotation in abduction: 40. Internal rotation: T12. Strength Right External rotation: 5/5. Internal rotation: 5/5. Abduction: 5/5. Neurovascular Right Right shoulder nerve sensation is normal. Axillary nerve sensory distribution: normal Scapula Right Position: normal Dyskinesia: none Winging: none Special Tests Right Rotator Cuff Signs Neer's test: positive Mayer test: positive Supraspinatus: negative Belly press test: negative Painful arc test: positive Lift-off sign: negative Drop arm test: negative Biceps/joss Signs Drake's test: positive Clicking/popping: positive Speed's test: positive AC Joint Signs Active horizontal adduction pain: negative Single finger test: negative General Constitutional: appears stated age Labored breathing: no Psychiatric: normal mood and affect and no acute distress Neurological: alert and oriented x3 Skin: intact Lymphadenopathy: none IMAGING: I personally reviewed the MRI of the right shoulder in the office today, and I am in agreement with the radiologist's interpretation with the following modifications: None IMPRESSION: MILD SUBACROMIAL-SUBDELTOID BURSITIS. INTACT ROTATOR CUFF AND GLENOID LABRUM. PLAN: Pat Knight presents today with persistent pain in the right shoulder following an injury in September 2022 with exam consistent with bicipital tendinitis or instability of the biceps tendon likely due to tearing and incompetence of the medial support structures at the bicipital groove. Based on my evaluation today, I do not feel that nonsurgical interventions including physical therapy, activity modification, and medical management are likely to provide this patient with an acceptable level of improvement in functional use of the arm, nor significant pain relief. After thorough review of history, examination findings, and imaging, we discussed surgical intervention today which would be arthroscopy with biceps tenodesis. I described the procedure in detail as well as the expected healing time of 3-6 months and physical therapy regimen following surgery, likely for much of this time. Informed consent was discussed in detail and signed in the office today. Significant risks of surgery including those of general anesthesia, and those from surgery including infection, nerve injury, bleeding, procedure failure and possible need for repeat procedure were all discussed at the time of consent. No guarantees as to the outcome of surgery were given or implied. Surgery will be scheduled for the next available date. Louis Valencia MD Shoulder AND Elbow Surgeon Department of Orthopaedic Surgery [facility] [place] 08-09-2023 History of Present illness Narrative PAIN EVALUATION 08/09/2023 1252 Pain Level: 5 Pain Location: Shoulder-Right Description: Dull;Aching;Sharp Duration Units: Years Frequency: Intermittent Intervention/Comfort measure: Medication;Reposition;Relaxation Encounter Diagnosis ICD-10-CM 1. Biceps tendinitis of right upper extremity M75.21 Pat Knight presents today for evaluation of her right shoulder. She has been referred by my partner Dr. Rios for treatment of pain following an injury sustained in September 2022 when she reached out with the right arm to catch something heavy at work and had sudden onset of pain in the anterior and lateral shoulder. This has not resolved despite conservative treatment with physical therapy. Pain is described as being dull at rest and sharper with movement. It is felt primarily over the anterior and lateral shoulder. It will sometimes radiate to the elbow. The pain affects lifting, reaching, and rotational activities. The pain is often worse at night. Shoulder Musculoskeletal Exam Inspection Right Ecchymosis: none Peripheral edema: none Atrophy: none Symmetry: symmetric Masses: none Skin tenting: none Prior incision: none Palpation Right Crepitus: mild Increased warmth: none Tenderness: present Anterior shoulder: moderate Posterior shoulder: mild Bicipital groove: moderate Proximal biceps: moderate Range of Motion Right Active ROM: abnormal and pain. Passive ROM: abnormal and pain. Active forward elevation: 140. Passive forward elevation: 150. Shoulder active abduction: 90. Passive abduction: 90. Active external rotation at side: 60. Passive external rotation at side: 60. Active external rotation in abduction: 60. Passive external rotation in abduction: 60. Active internal rotation in abduction: 40. Passive internal rotation in abduction: 40. Internal rotation: T12. Strength Right External rotation: 5/5. Internal rotation: 5/5. Abduction: 5/5. Neurovascular Right Right shoulder nerve sensation is normal. Axillary nerve sensory distribution: normal Scapula Right Position: normal Dyskinesia: none Winging: none Special Tests Right Rotator Cuff Signs Neer's test: positive Mayer test: positive Supraspinatus: negative Belly press test: negative Painful arc test: positive Lift-off sign: negative Drop arm test: negative Biceps/joss Signs Drake's test: positive Clicking/popping: positive Speed's test: positive AC Joint Signs Active horizontal adduction pain: negative Single finger test: negative General Constitutional: appears stated age Labored breathing: no Psychiatric: normal mood and affect and no acute distress Neurological: alert and oriented x3 Skin: intact Lymphadenopathy: none IMAGING: I personally reviewed the MRI of the right shoulder in the office today, and I am in agreement with the radiologist's interpretation with the following modifications: None IMPRESSION: MILD SUBACROMIAL-SUBDELTOID BURSITIS. INTACT ROTATOR CUFF AND GLENOID LABRUM. PLAN: Pat Knight presents today with persistent pain in the right shoulder following an injury in September 2022 with exam consistent with bicipital tendinitis or instability of the biceps tendon likely due to tearing and incompetence of the medial support structures at the bicipital groove. Based on my evaluation today, I do not feel that nonsurgical interventions including physical therapy, activity modification, and medical management are likely to provide this patient with an acceptable level of improvement in functional use of the arm, nor significant pain relief. After thorough review of history, examination findings, and imaging, we discussed surgical intervention today which would be arthroscopy with biceps tenodesis. I described the procedure in detail as well as the expected healing time of 3-6 months and physical therapy regimen following surgery, likely for much of this time. Informed consent was discussed in detail and signed in the office today. Significant risks of surgery including those of general anesthesia, and those from surgery including infection, nerve injury, bleeding, procedure failure and possible need for repeat procedure were all discussed at the time of consent. No guarantees as to the outcome of surgery were given or implied. Surgery will be scheduled for the next available date. Louis Valencia MD Shoulder & Elbow Surgeon Department of Orthopaedic Surgery [facility] documented in this encounter [facility] 08-05-2023 History of Present illness Narrative SUBJECTIVE Pat Knight is a 43 year old female here today for a check up on her medical problems. Chief Complaint Patient presents with: Follow Up HPI Pat Knight is a 43 year old female. She presents today for routine follow up. Currently on Percocet for pain control. She has had issues with chronic right shoulder pain and pain secondary to a tear of the right glenoid labrum. She was seen with orthopaedics and has follow up with Dr. Valencia next week to discuss surgical options. Currently the Percocet is keeping the pain manageable and helps improve her quality of life to be able to complete ADLs with limited pain. Her medications were reviewed today and her list is now up to date. Medications Current Outpatient Medications Medication Sig benzonatate (TESSALON PERLES) 100 mg capsule Take 1 capsule by mouth three times a day as needed. traZODone (DESYREL) 100 mg tablet Take 1 tablet by mouth daily at bedtime. acetaminophen (TYLENOL) 325 mg tablet Take 650 mg by mouth every 6 hours as needed. [START ON 08/15/2023] oxyCODONE-acetaminophen (PERCOCET) 5-325 mg tablet Take 1 tablet by mouth every 8 hours as needed for pain for up to 14 days. Do not start before August 15, 2023. oxyCODONE-acetaminophen (PERCOCET) 5-325 mg tablet Take by mouth every 8 hours as needed for pain. cyclobenzaprine HCl (FLEXERIL ORAL) Take by mouth. No current facility-administered medications for this visit. ALLERGIES Allergen Reactions Pamprin Multi-Sympt* Rash, Itching, Shortness of Breath Severe itching all over body, slight rash, hyper ventilating, lips swelled badly Buspar [Buspirone] Mental Status Change Caused suicidal thoughts Codeine Hives, Itching Lamotrigine Hives Nitrofurantoin Macr* Unknown Promethazine-Phenyl* Intolerance Make her feel like passing out ACTIVE PROBLEM LIST Tobacco Use Disorder - 04/30/2023 Insomnia - 01/26/2017 Hepatitis C Virus Infection Without Hepatic Coma - 06/15/2016 Add (Attention Deficit Hyperactivity Disorder, Inattentive Type) - 09/19/2013 Depression Anxiety Chronic Pain - 05/29/2010 Comment: Pt to have f/u with [facility] 06/01/10. No further NARCS per PCP. Diarrhea Allergic Rhinitis, Cause Unspecified - 04/05/2006 Social History Tobacco Use Smoking status: Every Day Packs/day: 1.00 Years: 14.00 Additional pack years: 0.00 Total pack years: 14.00 Types: Cigarettes Smokeless tobacco: Never Vaping Use Vaping Use: Never used Substance Use Topics Alcohol use: No Drug use: Yes Types: Marijuana Review of Systems Respiratory: Negative. Cardiovascular: Negative. OBJECTIVE BP 118/72 Resp 16 Ht 5' 5 (1.65m) Wt 126 lb 8 oz (57.4kg) LMP 05/07/2009 BMI 21.05 kg/(m^2). Physical Exam Vitals and nursing note reviewed. Constitutional: General: She is awake. She is not in acute distress. Appearance: Normal appearance. She is well-developed and well-groomed. She is not ill-appearing, toxic-appearing or diaphoretic. HENT: Head: Normocephalic. Right Ear: External ear normal. Left Ear: External ear normal. Nose: Nose normal. Eyes: General: Vision grossly intact. Conjunctiva/sclera: Conjunctivae normal. Pupils: Pupils are equal, round, and reactive to light. Neck: Vascular: No JVD. Trachea: Trachea normal. Pulmonary: Effort: Pulmonary effort is normal. No accessory muscle usage, prolonged expiration or respiratory distress. Musculoskeletal: Cervical back: Neck supple. Skin: General: Skin is warm and dry. Capillary Refill: Capillary refill takes less than 2 seconds. Neurological: General: No focal deficit present. Mental Status: She is alert and oriented to person, place, and time. Mental status is at baseline. Psychiatric: Attention and Perception: Attention and perception normal. Mood and Affect: Mood and affect normal. Speech: Speech normal. Behavior: Behavior normal. Behavior is cooperative. Thought Content: Thought content normal. Cognition and Memory: Cognition and memory normal. Judgment: Judgment normal. ASSESSMENT/PLAN: 1. Tear of right glenoid labrum, subsequent encounter - ICD9: V58.89, 840.8, ICD10: S43.431D Follow up with ortho next week, no signs misuse or abuse, refill percocet when due. - OXYCODONE-ACETAMINOPHEN 5 MG-325 MG TABLET 2. Chronic right shoulder pain - ICD9: 719.41, 338.29, ICD10: M25.511, G89.29 - OXYCODONE-ACETAMINOPHEN 5 MG-325 MG TABLET OARRS reviewed and script is appropriate, non-opioids considered. Patient is aware of risks and benefits of opioid medications and their use, including but not limited to risk for addiction. Advised to take medication as prescribed and adhere to the dosing regimen and to use the least amount necessary for the shortest period of time. Discussed possible side effects including constipation. Advised to use caution when operating heavy machinery and driving and to never share or sell medication. PDMP website checked and validated. All prescriptions have been APPROPRIATELY filled. No suspicious activity was identified. 08/05/2023 by Sam Khan APRN.CNP Portions of this note have been entered by ancillary staff. I have reviewed and when necessary edited, so that they are an adequate record of my encounter with this patient Please note that parts of this document were created using voice recognition software and therefore may contain grammatical errors. Patient verbalizes understanding of instructions from today's visit and in agreement with treatment plan. Questions answered. Agrees to call the office if questions, concerns of issues with acute symptoms not improving or if they worsen. See diagnoses and orders for additional plan(s). Allergies and medications were reviewed, list was updated, and refills given if needed. Past medical, surgical, social, and family history reviewed and updated as appropriate. Encouraged proper diet & exercise as well as compliance with taking medications. Age-appropriate health preventative measures were discussed.. Return in about 3 months (around 11/03/2023) for Follow up on chronic conditions and medications.. Sam Khan APRN-LUIS DANIEL documented in this encounter [facility] 08-01-2023 Miscellaneous Notes Patient returned call and went over notes from Dr Norman with understanding. Patient said she had to reschedule her appt due to being ill and moved to 08/09/[address] Valencia. Scheduled appt with HEATING TECHNICIAN for tomorrow morning at 740 am. Left a message for pt to call the office and ask to speak to a nurse. Amber Minaya LPN NOted Patient missed her appointment with Dr. Valencia. Rescheduled for 08/09. Needs follow up with me or [facility] scheduled--last seen 05/31 and no follow up scheduled yet. Needs seen at least every 3 months if not tapering off pain med. The following approved medication requests have been transmitted electronically. Requested Prescriptions Signed Prescriptions Disp Refills oxyCODONE-acetaminophen (PERCOCET) 5-325 mg tablet 42 tablet 0 Sig: Take 1 tablet by mouth every 8 hours as needed for pain for up to 14 days. Do not start before August 01, 2023. Authorizing Provider: MAILE NORMAN MD Pharmacy verified in [facility] Patient has been identified by name and date of : Yes Patient aware RX will be sent to pharmacy. No need to notify patient. Patient phones for refill(s): Requested Prescriptions Pending Prescriptions Disp Refills oxyCODONE-acetaminophen (PERCOCET) 5-325 mg tablet 42 tablet 0 Sig: Take 1 tablet by mouth every 8 hours as needed for pain for up to 14 days. Date of last office visit : 05/31/2023 Date of next office visit : Visit date not found Last 2 Encounter Wt Readings: Date: Wt: 06/16/2023 56.7 kg (125 lb) 05/31/2023 58.5 kg (129 lb) Not applicable Please advise. Pat Shoemaker Pss documented in this encounter [facility] 08-01-2023 History of Present illness Narrative This note was created using Envie de Fraises[employer]. Subjective Pat Knight is a 43 year old female. HPI 43-year-old female presents for flulike symptoms since Tuesday. Patient has been having chills, body aches, headache, sore throat, coughing, chest congestion, nausea. She states that her grandson recently tested positive for influenza B and RSV. Patient has not had a fever. She has no chest pain, but feels congested in the chest. No shortness of breath. She is a smoker. No history of COPD or asthma. No vomiting or diarrhea. Has been taking qopl-ttc-hjsfkrv medication with minimal improvement. No other complaint. PAST MEDICAL HISTORY Diagnosis Date Abdominal pain, unspecified site Abnormal glandular Papanicolaou smear of cervix 04/08/2006 Abn. Pap smear (cervix) Allergic rhinitis, cause unspecified 04/05/2006 Anxiety Congestive heart failure (HCC) Depression Diarrhea Hypertension Irritable bowel syndrome Mental disorders complicating , childbirth, or the puerperium DEPRESSION Migraine, unspecified, with intractable migraine, so stated, without mention of status migrainosus Other and unspecified ovarian cyst PMH - PAST MEDICAL HISTORY OF Narcotic dependence requiring rehab in 2006 Temporomandibular joint disorders, unspecified PAST SURGICAL HISTORY Procedure Laterality Date ADENOIDECTOMY PRIMARY <AGE 14 Adenoidectomy COLPOSCOPY CERVIX UPPER/ADJACENT VAGINA Colposcopy DILATION & CURETTAGE DX&/THER NONOBSTETRIC 2000 Dilation & curettage,TAB ESOPHAGOGASTRODUODENOSCOPY TRANSORAL DIAGNOSTIC 11/01/11 EGD [facility] inpt H-pylori negative LIG/TRNSXJ FLP TUBE ABDL/VAG APPR UNI/BI 04/09/2006 Tubal ligation MYRINGOTOMY ASPIR&/EUSTACHIAN TUBE NFLTJ ANES 1994 Myringotomy/tubes OOPHORECTOMY PARTIAL/TOTAL UNI/BI left TONSILLECTOMY PRIMARY/SECONDARY <AGE 14 1988 Tonsillectomy ALLERGIES Pamprin Multi-Symptom [Dydgwgxbszvgu-Xqyjtpzi-Vbjjlxm], Buspar [Buspirone], Codeine, Lamotrigine, Nitrofurantoin Macrocrystal, and Promethazine-Phenylephrine MEDICATIONS oxyCODONE-acetaminophen (PERCOCET) 5-325 mg tablet Take 1 tablet by mouth every 8 hours as needed for pain for up to 14 days. Do not start before August 01, 2023. traZODone (DESYREL) 100 mg tablet Take 1 tablet by mouth daily at bedtime. cyclobenzaprine HCl (FLEXERIL ORAL) Take by mouth. acetaminophen (TYLENOL) 325 mg tablet Take 650 mg by mouth every 6 hours as needed. oxyCODONE-acetaminophen (PERCOCET) 5-325 mg tablet Take by mouth every 8 hours as needed for pain. (Patient not taking: Reported on 06/16/2023) FAMILY HISTORY Problem Relation Age of Onset Psychiatry Mother DEPRESSION Hypertension Father Cervical Cancer Maternal Grandmother Hypertension Maternal Grandmother Cancer Maternal Grandfather BLADDER Heart Maternal Grandfather SC & EMPHYSEMA Social History Tobacco Use Smoking status: Every Day Packs/day: 1.00 Years: 14.00 Additional pack years: 0.00 Total pack years: 14.00 Types: Cigarettes Smokeless tobacco: Never Vaping Use Vaping Use: Never used Substance Use Topics Alcohol use: No Drug use: Yes Types: Marijuana Review of Systems Constitutional: Positive for chills and fever. HENT: Positive for congestion and sore throat. Negative for ear pain. Respiratory: Positive for cough. Negative for shortness of breath. Cardiovascular: Negative for chest pain. Gastrointestinal: Positive for nausea. Negative for abdominal pain, diarrhea and vomiting. Musculoskeletal: Positive for myalgias. Objective BP 133/86 Pulse 69 Temp 36.4 C (97.5 F) Resp 20 Wt 59.9 kg (132 lb) LMP 05/07/2009 SpO2 99% BMI 21.97 kg/m Physical Exam Vitals and nursing note reviewed. Constitutional: General: She is not in acute distress. Appearance: Normal appearance. She is not toxic-appearing. HENT: Right Ear: Tympanic membrane and ear canal normal. Left Ear: Tympanic membrane and ear canal normal. Nose: Nose normal. Mouth/Throat: Mouth: Mucous membranes are moist. Pharynx: Oropharynx is clear. Uvula midline. No oropharyngeal exudate or posterior oropharyngeal erythema. Tonsils: No tonsillar exudate. Eyes: Conjunctiva/sclera: Conjunctivae normal. Cardiovascular: Rate and Rhythm: Normal rate and regular rhythm. Pulmonary: Effort: Pulmonary effort is normal. Breath sounds: Normal breath sounds. No wheezing, rhonchi or rales. Neurological: Mental Status: She is alert. Assessment and Plan ASSESSMENT/PLAN: 1. Flu-like symptoms - ICD9: 780.99, ICD10: R68.89 (primary diagnosis) - INFLUENZA A&B MOLECULAR (POC)- negative - COVID & INFLUENZA A/B & RSV NAAT, ROUTINE 2. URI, acute - ICD9: 465.9, ICD10: J06.9 - Discussed viral etiology and rationale for treatment. - Symptomatic treatment with prn analgesia - Supportive care with fluids and rest - RX for Tessalon perles - COVID & INFLUENZA A/B & RSV NAAT, ROUTINE Diagnosis and treatment plan were discussed and questions were answered to the patient's satisfaction. Pt acknowledged understanding of concepts and follow up plan. Specific signs and symptoms that would indicate the need for higher level of care were discussed in detail warranting prompt ER evaluation. SAAD Gamez documented in this encounter [facility] 06-16-2023 History of Present illness Narrative Antonio Rios MD Department of Orthopaedics [facility] [address] [place] [address] Dept: [phone] Dept June 16, 2023 CHIEF COMPLAINT: Pain and New of the Right Shoulder and Referred by Charles Elliott HPI Patient here for evaluation right shoulder pain. Patient states in September she was moving a bella stand at work and a box started to fall and she caught the box with her right shoulder. She filed Worker's comp but has been denied. She had 2-3 months of PT and therapist stopped due to her having clicking and popping in her shoulder. She had an MRI at [facility] but did not bring it. States it showed she has a labral tear. She is having constant pain in her upper arm and can have pain in her armpit. She is right hand dominant. Patient had another MRI done on 03/11/23. X-rays done today. Taking Percocet for the pain and only makes it tolerable. ASSESSMENT: M25.511, G89.29 Chronic right shoulder pain M24.111 Labral tear of shoulder, degenerative, right PLAN: Her updated MRI with contrast looks fairly good. Its bit of a difficult clinical situation. I think would like her to see one of our shoulder specialists to help determine what exactly is going on. She may very well just simply need a shoulder scope to evaluate. FOLLOW UP INSTRUCTIONS: Get her in to see Dr. Valencia. Ms. Pat Knight was advised as to contrast therapies and/or to take analgesics/anti-inflammatories as needed and all contraindications were reviewed. OBJECTIVE: Ms. Pat Knight is a pleasant 43 year old in no apparent distress. Gen:Ht 5' 5 (1.65m) Wt 125 lb (56.7kg) LMP 05/07/2009 BMI 20.80 kg/(m^2). nl development, non obese, no deformities ENT: Normocephalic, normal hearing, moist mucosa CV: Pulses:Radial= 2+ and symmetric, capillary refill < 2 secs, no peripheral edema/varicosities Skin: no rash, bruising or lesions. Good turgor. Psych: cooperative and appropriate, alert and oriented x 3, good mood and affect. Musculoskeletal: Supple range of motion of the cervical spine without pain. Spurling signs are negative. No atrophy of the deltoid and shoulder musculature. Right shoulder is nontender to palpation over the SC joint, clavicle and AC joint. She has mild tenderness over the lateral deltoid. No tenderness to palpation over the posterior shoulder, mild tenderness over the anterior lateral corner of the shoulder and greater tuberosity. Non painful at the bicipital groove and coracoid. Active range of motion is 160 of forward elevation, 60 external rotation, and internal rotation to the mid lumbar spine. Passive range of motion is symmetrical, limited by some pain, respectively. No laxity with anterior and posterior stress. Mildly positive Neer and Mayer impingement signs. 5/5 strength with supraspinatus, infraspinatus and subscapularis. Sensation is intact in the axillary, radial, median and ulnar nerve distribution IMAGING: * * *Final Report* * * DATE OF EXAM: Mar 11 2023 3:01PM [place] [id number] - MRI SHOULDER WO/W IVCON RT / PROCEDURE REASON: multiple diagnoses * * * * Physician Interpretation * * * * HISTORY: . Tear of right glenoid labrum, subsequent encounter Chronic right shoulder pain Chronic right shoulder pain . TECHNIQUE: Routine MRI of the shoulder, right side; postcontrast images obtained following IV administration of 12 cc Dotarem. COMPARISON: None RESULT: TENDONS Rotator Cuff: The tendons of the rotator cuff are intact. Long Head Biceps: The long head biceps tendon is intact and appropriately located. LABRUM: The glenoid labrum appears to be intact. GLENOHUMERAL CARTILAGE: The articular cartilage of the glenohumeral joint is preserved. SYNOVIUM AND CAPSULE: Physiologic quantity of joint fluid. The joint capsule signal is within normal limits. Mild subacromial-subdeltoid bursitis. MUSCLES: Muscle bulk and signal intensity are within normal limits. ACROMIOCLAVICULAR JOINT: The acromioclavicular joint is within normal limits. BONE AND BONE MARROW: No evidence of fracture or bone marrow replacing process. OTHER: No other significant abnormality identified. IMPRESSION IMPRESSION: MILD SUBACROMIAL-SUBDELTOID BURSITIS. INTACT ROTATOR CUFF AND GLENOID LABRUM. Supporting Subjective Information Below: Past Medical History: PAST MEDICAL HISTORY Diagnosis Date Abdominal pain, unspecified site Abnormal glandular Papanicolaou smear of cervix 04/08/2006 Abn. Pap smear (cervix) Allergic rhinitis, cause unspecified 04/05/2006 Anxiety Congestive heart failure (HCC) Depression Diarrhea Hypertension Irritable bowel syndrome Mental disorders complicating , childbirth, or the puerperium DEPRESSION Migraine, unspecified, with intractable migraine, so stated, without mention of status migrainosus Other and unspecified ovarian cyst PMH - PAST MEDICAL HISTORY OF Narcotic dependence requiring rehab in 2006 Temporomandibular joint disorders, unspecified Past Surgical History: PAST SURGICAL HISTORY Procedure Laterality Date ADENOIDECTOMY PRIMARY <AGE 14 Adenoidectomy COLPOSCOPY CERVIX UPPER/ADJACENT VAGINA Colposcopy DILATION & CURETTAGE DX&/THER NONOBSTETRIC 2001 Dilation & curettage,TAB ESOPHAGOGASTRODUODENOSCOPY TRANSORAL DIAGNOSTIC 11/01/11 EGD [facility] inpt H-pylori negative LIG/TRNSXJ FLP TUBE ABDL/VAG APPR UNI/BI 04/09/2006 Tubal ligation MYRINGOTOMY ASPIR&/EUSTACHIAN TUBE NFLTJ ANES 1994 Myringotomy/tubes OOPHORECTOMY PARTIAL/TOTAL UNI/BI left TONSILLECTOMY PRIMARY/SECONDARY <AGE 14 1988 Tonsillectomy Family History: FAMILY HISTORY Problem Relation Age of Onset Psychiatry Mother DEPRESSION Hypertension Father Cervical Cancer Maternal Grandmother Hypertension Maternal Grandmother Cancer Maternal Grandfather BLADDER Heart Maternal Grandfather SC & EMPHYSEMA Social History: Social History Tobacco Use Smoking status: Every Day Packs/day: 1.00 Years: 14.00 Additional pack years: 0.00 Total pack years: 14.00 Types: Cigarettes Smokeless tobacco: Never Vaping Use Vaping Use: Never used Substance Use Topics Alcohol use: No Drug use: Yes Types: Marijuana Medications: Current Outpatient Medications Medication Sig traZODone (DESYREL) 100 mg tablet Take 1 tablet by mouth daily at bedtime. oxyCODONE-acetaminophen (PERCOCET) 5-325 mg tablet Take 1 tablet by mouth every 8 hours as needed for pain for up to 14 days. Do not start before June 08, 2023. cyclobenzaprine HCl (FLEXERIL ORAL) Take by mouth. acetaminophen (TYLENOL) 325 mg tablet Take 650 mg by mouth every 6 hours as needed. oxyCODONE-acetaminophen (PERCOCET) 5-325 mg tablet Take by mouth every 8 hours as needed for pain. (Patient not taking: Reported on 06/16/2023) No current facility-administered medications for this visit. Allergies: Pamprin Multi-Symptom [Utwgqjlobuwfy-Ptptbour-Gtbehtz], Buspar [Buspirone], Codeine, Lamotrigine, Nitrofurantoin Macrocrystal, and Promethazine-Phenylephrine ROS: General (negative for fatigue, malaise, weight loss/gain) HEENT (negative for headache, earache, recent vision changes, sinus pain, sore throat) Respiratory (no recent shortness of breath, hemoptysis) CV (negative for chest tightness, palpitations) Musculoskeletal (see HPI) Psych (no depression, anxiety) REFERRING PHYSICIAN: Consultation requested by Charles Elliott for an opinion regarding right shoulder pain. My final recommendations will be communicated back to the requesting physician by way of shared Medical record or letter to requesting physician via US mail. Charles Elliott [address] [facility] [address] Maile Norman MD [address] [facility] [id number] Antonio Rios MD documented in this encounter [facility] 05-25-2023 Miscellaneous Notes PDMP website checked and validated. All prescriptions have been APPROPRIATELY filled. No suspicious activity was identified. 05/25/2023 by Sam Khan APRN.CNP Patient has been identified by name and date of : Yes Patient phones for refill(s): Requested Prescriptions Pending Prescriptions Disp Refills oxyCODONE-acetaminophen (PERCOCET) 5-325 mg tablet 42 tablet 0 Sig: Take 1 tablet by mouth every 8 hours as needed for pain for up to 14 days. Date of last office visit in primary care: 04/30/2023 Date of next office visit in primary care: 05/31/2023 Last 2 Encounter Wt Readings: Date: Wt: 04/30/2023 57.6 kg (127 lb) 04/30/2023 57.6 kg (127 lb) Previous labs/tests for medication: Not applicable Please advise. Thank you. Sharmin Monge LPN. documented in this encounter [facility] 05-16-2023 Miscellaneous Notes Message left on voicemail to call office for update. Karen Shore LPN documented in this encounter [facility] 05-13-2023 History of Present illness Narrative POPULATION HEALTH NAVIGATION OUTREACH Action/FYI Pt scheduled Patient Identified by Name and : YES, via phone Outreach Outcome/Action Spoke to patient / parent / legal guardian: Patient scheduled Did you use a PCP flex slot to schedule this appointment? No Reason for Outreach Care Gap or Scheduling/Wellness visits Payer: Payor: [place]ICA[place] / Plan: [facility] MEDICAID / Product Type: Medicaid / Care Gap Reviewed:: Specialty Scheduling Reminder: Reminder note to check Health Maintenance for items below Health Maintenance items due: Hepatitis B Vaccine(2 of 3 - Hep B Twinrix 3-dose series) due on 05/19/2016 Mammogram Screening Never done Pap Testing due on 09/28/2022 HPV Testing due on 09/28/2022 Navigation Signature: Kimberly Caruso May 13, 2023 3:37 PM documented in this encounter [facility] 05-12-2023 Miscellaneous Notes See other refill encounter today that addresses this also. Will close this one. Pt requesting a refill for meds, she was referred to pain management & had first appt this morning. Pt states she is being referred to surgeon by pain management. Pain management told pt to request pain med refills from primary care. Pt is out of meds Requested Prescriptions Pending Prescriptions Disp Refills oxyCODONE-acetaminophen (PERCOCET) 5-325 mg tablet 42 tablet 0 Sig: Take 1 tablet by mouth every 8 hours as needed for pain for up to 14 days. JESUS: 04/30/23 NOV: None scheduled Last Refill: 04/25/23 #42 0 refills Britt Murray LPN documented in this encounter [facility] 05-12-2023 Miscellaneous Notes Pain management visit today advised Pat Knight: Discussed the guidelines of pain management and the patient appears to understand this practice would not be able to provide opioid therapy with her THC card. Review PDMP indicates recent THC fill. I cannot refill this for her, will defer to PCP for review. Duplicate request. See phone note. Aline Melvin, PEYMAN documented in this encounter [facility] 05-12-2023 Miscellaneous Notes The referral to Orthopaedics for Chronic right shoulder pain, Labral tear of shoulder, degenerative, right has been submitted via the [facility] Internal Referral Request form on the [facility] Appointment Portal. Confirmation # [id number] Kimberly Crowe documented in this encounter [facility] 05-12-2023 Note HNO ID: [id number] Author: Vince Heck LPN Service: ? Author Type: LICENSED NURSE Type: Progress Notes Filed: 05/12/2023 2:29 PM Note Text: Review of Systems Constitutional: Positive for activity change, chills and fever. Negative for unexpected weight change. Gastrointestinal: Negative for bowel retention or incontinence Genitourinary: Positive for difficulty urinating. Negative for bladder retention or incontinence Musculoskeletal: Positive for arthralgias, back pain and myalgias. Negative for gait problem, joint swelling, neck pain and neck stiffness. Neurological: Negative for weakness, numbness and headaches. Psychiatric/Behavioral: Positive for dysphoric mood and sleep disturbance. Negative for suicidal ideas. The patient is nervous/anxious. [facility] 05-12-2023 History of Present illness Narrative Review of Systems Constitutional: Positive for activity change, chills and fever. Negative for unexpected weight change. Gastrointestinal: Negative for bowel retention or incontinence Genitourinary: Positive for difficulty urinating. Negative for bladder retention or incontinence Musculoskeletal: Positive for arthralgias, back pain and myalgias. Negative for gait problem, joint swelling, neck pain and neck stiffness. Neurological: Negative for weakness, numbness and headaches. Psychiatric/Behavioral: Positive for dysphoric mood and sleep disturbance. Negative for suicidal ideas. The patient is nervous/anxious. Images from the original note were not included. [facility] Today's Date: 05/12/2023 Last Visit: N/A Name: Pat Knight : 1980 Purpose: New Patient Consultation Chief complaint: right shoulder pain Referring Clinician: Anny Pham CNP. Pertinent Past Medical History: right shoulder, depression, anxiety, ADD. Pertinent Past Surgeries: none History of Present Illness (HPI): 05/11/2023 - Initial HPI (Obtained by Charles Elliott CNP). DURATION AND ONSET: The pain complaint has been present for approximately 5 months. The pain had a sudden onset. The mechanism of injury is known and is as follows: unloaded a box off of a dock and the box slid and she ended up catching it with her right shoulder and arm PRIOR TREATMENTS: Medications, Injections: (CSI no relief), Physical Therapy, TENS PAIN DESCRIPTION: Currently the pain is primarily localized in the right shoulder. The pain is experienced as constant. It is described as being Aching, Sharp, Stabbing, Throbbing. There is will radiate into her axillary area and the front of her upper right arm. The pain is exacerbated by moving her shoulder, sleeping on it. . The pain is alleviated by Medications, Ice. The pain interferes with physical activity, work, and all ADL's. RED FLAG SYMPTOMS:reports arm weakness. Pt states she is able do most of her activites but it is painful. Patient states she has been miserable since the accident happened. Patient states that she is still able to do her activities of daily living but it is with increased pain. Patient states that where she works is making provisions to help her to be able to do her job but by the end of her shift she is miserable. Patient has been taking hydrocodone from her primary care, states it is helping some. Patient has done everything to help her pain, including therapy injections use of the TENS unit and medications. Nothing is helped. Patient has had an MRI done and she does have a labral tear. Patient does have a marijuana card currently. Patient states occasionally she will partake in the use of this marijuana. Patient states she was stopped if she be given pain medication did not help with her pain. Patient states the marijuana helps her with anxiety. Current Pain Medications: Neuropathics: none NSAIDS: Muscle Relaxants: Topicals: Other Prescription or OTC Pain Medications: Opioids (when applicable): Date last refilled: Quantity supplied: Quantity remaining: Last taken: Anti-depressants or Mood-Stabilizers: Trazodone Anti-Coagulants: None Current Therapies Attended: Physical Therapy: 12 visits have been attended. With [facility] Treatment History: PAIN PROCEDURES: DATE PROCEDURE IMPROVEMENT To date, no interventional pain management procedures performed at this practice. 12/2022 Right shoulder CSI no relief. Past Therapies Attended: above Data Reviewed Today: SOCIAL HISTORY No social history on file. Allergies: ALLERGIES Allergen Reactions Pamprin Multi-Sympt* Rash, Itching, Shortness of Breath Severe itching all over body, slight rash, hyper ventilating, lips swelled badly Buspar [Buspirone] Mental Status Change Caused suicidal thoughts Codeine Hives, Itching Lamotrigine Hives Nitrofurantoin Macr* Unknown Promethazine-Phenyl* Intolerance Make her feel like passing out INTAKE PAIN ASSESSMENT 04/30/2023 05/12/2023 Are you having pain associated with your visit today? No Yes, Provider notified Pain Scales - Verbal (Numeric Rating or Visual Analog Scale) Pain Level - 7 Pain Location - Shoulder-Right Description - Aching;Stabbing;Sharp Duration Amount of Time - - Duration Units - Months Frequency - Continuous Intervention/Comfort measure - Medication;Reposition;Relaxation;Exerc ise;Heat;Pillow support;Positioning;Therapeutic techniques-CPRP Comments - - Pain Assessment - - Compliance: PDMP website checked and validated on 05/12/2023 by Charles Elliott APRN.DISABILITY MANAGER All prescriptions have been APPROPRIATELY filled. No suspicious activity was identified. Recent Drug screens: AG SPINE COMBINATION 05/12/2023 Questionnaire GREENLIGHT Completed Date 05/12/2023 Questionnaire Opiod Risk Tool Completed Date 05/12/2023 Comments 4 Greenlight Questionnaire GREENLIGHT Completed Date 05/12/2023 Opioid Risk Tool Opiod Risk Tool Date Completed 05/12/2023 Comments 4 VAISHALI-7 Anxiety Score 8 Completed Date 05/12/2023 PHQ9P Score 4 Completed Date 05/12/2023 (All drug screens are appropriate unless indicated otherwise) Risk Assessment: VAISHALI-7: VAISHALI - 7 SCORES 05/04/2021 06/08/2021 05/12/2023 VAISHALI-7 Score 16 15 8 (0-4) minimal anxiety, (5-9) mild anxiety, (10-14) moderate anxiety, (15-21) severe anxiety PHQ-9: PHQ-9 05/04/2021 06/08/2021 05/12/2023 Score 6 5 4 (0-4) minimal depression, (5-9) mild depression, (10-14) moderate depression, (15-19) moderately severe depression, (20-27) severe depression Greenlight Questionnaire GREENLIGHT Completed Date 05/12/2023 Opioid Risk Tool Opiod Risk Tool Date Completed 05/12/2023 Comments 4 VAISHALI-7 Anxiety Score 8 Completed Date 05/12/2023 PHQ9P Score 4 Completed Date 05/12/2023 Diagnostic Studies: Relevant Imagin03/11/2023 3:17 PM - Radiology, [place] In Impression IMPRESSION: MILD SUBACROMIAL-SUBDELTOID BURSITIS. INTACT ROTATOR CUFF AND GLENOID LABRUM. Behaviour Support Teacher: DARSHAN Transcribe Date/Time: Mar 11 2023 3:11P Dictated by : TYESHA MARX MD This examination was interpreted and the report reviewed and electronically signed by: TYESHA MARX MD on Mar 11 2023 3:15PM EST Results-Findings * * *Final Report* * * DATE OF EXAM: Mar 11 2023 3:01PM [facility] [id number] - MRI SHOULDER WO/W IVCON RT / PROCEDURE REASON: multiple diagnoses * * * * Physician Interpretation * * * * HISTORY: . Tear of right glenoid labrum, subsequent encounter Chronic right shoulder pain Chronic right shoulder pain . TECHNIQUE: Routine MRI of the shoulder, right side; postcontrast images obtained following IV administration of 12 cc Dotarem. COMPARISON: None RESULT: TENDONS Rotator Cuff: The tendons of the rotator cuff are intact. Long Head Biceps: The long head biceps tendon is intact and appropriately located. LABRUM: The glenoid labrum appears to be intact. GLENOHUMERAL CARTILAGE: The articular cartilage of the glenohumeral joint is preserved. SYNOVIUM AND CAPSULE: Physiologic quantity of joint fluid. The joint capsule signal is within normal limits. Mild subacromial-subdeltoid bursitis. MUSCLES: Muscle bulk and signal intensity are within normal limits. ACROMIOCLAVICULAR JOINT: The acromioclavicular joint is within normal limits. BONE AND BONE MARROW: No evidence of fracture or bone marrow replacing process. OTHER: No other significant abnormality identified. Electrodiagnostic Study (EMG): None Recent Labs: Creatinine Date Value Ref Range Status 05/17/2022 0.97 (H) 0.58 - 0.96 mg/dL Final eGFR Date Value Ref Range Status 07/02/2018 >60 >60mL/min/1.73m2 Final Comment: If the patient is , multiply the result by 1.210. No results found for: PCGLUCOSE Current Medications, Past Medical History, Past Surgical History, Family History, Social History and Review of Systems: On today's date, noted above, I have confirmed and edited as necessary, the PFSH and ROS obtained by others. Physical Exam: 05/12/23 0922 Pulse: 68 Resp: 16 SpO2: 100% Physical Exam Vitals reviewed. Constitutional: General: She is not in acute distress. Appearance: She is not ill-appearing. HENT: Head: Normocephalic and atraumatic. Eyes: Conjunctiva/sclera: Conjunctivae normal. Cardiovascular: Pulses: Normal pulses. Pulmonary: Effort: Pulmonary effort is normal. No respiratory distress. Musculoskeletal: Right shoulder: Tenderness and bony tenderness present. Decreased range of motion. Decreased strength. Skin: General: Skin is warm and dry. Neurological: Mental Status: She is alert and oriented to person, place, and time. Motor: Weakness (right arm when compared to left) present. Deep Tendon Reflexes: Reflex Scores: Tricep reflexes are 1+ on the right side and 1+ on the left side. Bicep reflexes are 1+ on the right side and 1+ on the left side. Psychiatric: Mood and Affect: Mood is anxious. Affect is tearful. Behavior: Behavior normal. Behavior is cooperative. IMPRESSION: 43 year old female presents with complaint(s) of Right shoulder pain. Had a lengthy discussion gushing with the patient regarding her pain. Patient states that she would like to have a surgical referral as she does not think any other type of injection will help with her pain at this point. Patient states she is currently taking opioid therapy from her family doctor, it helps but not as much as she would wish. Discussed the guidelines of pain management and the patient appears to understand this practice would not be able to provide opioid therapy with her THC card. Will refer the patient to Dr. Rios due to her shoulder pain and the results of her MRI, we will see patient as needed. Diagnoses: (M25.511, G89.29) Chronic right shoulder pain (primary encounter diagnosis) (M24.111) Labral tear of shoulder, degenerative, right PLAN: Pat Knight would benefit from the following to reach personal goals for decreasing pain, improving function and work participation, and/or improving quality of life: Medications: No Changes - Continue Current Medications Interventional Procedures: None Studies: None Functional Restorationism: NONE Referrals: No additional considerations at present Orthopedics ([phone]) Follow-up: prn with Depending on response to the above plan, consider: repeating CSI in right shoulder Patient Education, Compliance and Clinic Policies Reviewed and/or Discussed Today: None Attribution: In addition to reviewing the information noted above, some elements copied from my most recent clinical note(s), including the physical exam (completed in entirety today), and the impression and plan sections, have been updated where appropriate. All reflect current medical decision making from today's date. Charles Elliott APRN.CNP Pain Management [facility] documented in this encounter [facility] 05-12-2023 Note HNO ID: [id number] Author: Charles Elliott APRN.CNP Service: ? Author Type: Nurse Practitioner Type: Progress Notes Filed: 05/12/2023 2:29 PM Note Text: [facility] Today's Date: 05/12/2023 Last Visit: N/A Name: Pat Knight : 1980 Purpose: New Patient Consultation Chief complaint: right shoulder pain Referring Clinician: Anny Pham CNP. Pertinent Past Medical History: right shoulder, depression, anxiety, ADD. Pertinent Past Surgeries: none History of Present Illness (HPI): 05/11/2023 - Initial HPI (Obtained by Charles Elliott CNP). DURATION AND ONSET: The pain complaint has been present for approximately 5 months. The pain had a sudden onset. The mechanism of injury is known and is as follows: unloaded a box off of a dock and the box slid and she ended up catching it with her right shoulder and arm PRIOR TREATMENTS: Medications, Injections: (CSI no relief), Physical Therapy, TENS PAIN DESCRIPTION: Currently the pain is primarily localized in the right shoulder. The pain is experienced as constant. It is described as being Aching, Sharp, Stabbing, Throbbing. There is will radiate into her axillary area and the front of her upper right arm. The pain is exacerbated by moving her shoulder, sleeping on it. . The pain is alleviated by Medications, Ice. The pain interferes with physical activity, work, and all ADL's. RED FLAG SYMPTOMS:reports arm weakness. Pt states she is able do most of her activites but it is painful. Patient states she has been miserable since the accident happened. Patient states that she is still able to do her activities of daily living but it is with increased pain. Patient states that where she works is making provisions to help her to be able to do her job but by the end of her shift she is miserable. Patient has been taking hydrocodone from her primary care, states it is helping some. Patient has done everything to help her pain, including therapy injections use of the TENS unit and medications. Nothing is helped. Patient has had an MRI done and she does have a labral tear. Patient does have a marijuana card currently. Patient states occasionally she will partake in the use of this marijuana. Patient states she was stopped if she be given pain medication did not help with her pain. Patient states the marijuana helps her with anxiety. Current Pain Medications: Neuropathics: none NSAIDS: Muscle Relaxants: Topicals: Other Prescription or OTC Pain Medications: Opioids (when applicable): Date last refilled: Quantity supplied: Quantity remaining: Last taken: Anti-depressants or Mood-Stabilizers: Trazodone Anti-Coagulants: None Current Therapies Attended: Physical Therapy: 12 visits have been attended. With [facility] Treatment History: PAIN PROCEDURES: DATE PROCEDURE IMPROVEMENT To date, no interventional pain management procedures performed at this practice. 12/2022 Right shoulder CSI no relief. Past Therapies Attended: above Data Reviewed Today: SOCIAL HISTORY No social history on file. Allergies: ALLERGIES Allergen Reactions Pamprin Multi-Sympt* Rash, Itching, Shortness of Breath Severe itching all over body, slight rash, hyper ventilating, lips swelled badly Buspar [Buspirone] Mental Status Change Caused suicidal thoughts Codeine Hives, Itching Lamotrigine Hives Nitrofurantoin Macr* Unknown Promethazine-Phenyl* Intolerance Make her feel like passing out INTAKE PAIN ASSESSMENT 04/30/2023 05/12/2023 Are you having pain associated with your visit today? No Yes, Provider notified Pain Scales - Verbal (Numeric Rating or Visual Analog Scale) Pain Level - 7 Pain Location - Shoulder-Right Description - Aching;Stabbing;Sharp Duration Amount of Time - - Duration Units - Months Frequency - Continuous Intervention/Comfort measure - Medication;Reposition;Relaxation;Exerc ise;Heat;Pillow support;Positioning;Therapeutic techniques-CPRP Comments - - Pain Assessment - - Compliance: PDMP website checked and validated on 05/12/2023 by Charles Elliott APRN.DISABILITY MANAGER All prescriptions have been APPROPRIATELY filled. No suspicious activity was identified. Recent Drug screens: [facility] SPINE COMBINATION 05/12/2023 Questionnaire GREENLIGHT Completed Date 05/12/2023 Questionnaire Opiod Risk Tool Completed Date 05/12/2023 Comments 4 Greenlight Questionnaire GREENLIGHT Completed Date 05/12/2023 Opioid Risk Tool Opiod Risk Tool Date Completed 05/12/2023 Comments 4 VAISHALI-7 Anxiety Score 8 Completed Date 05/12/2023 PHQ9P Score 4 Completed Date 05/12/2023 (All drug screens are appropriate unless indicated otherwise) R (more content not included)... [facility] 05-05-2023 Miscellaneous Notes Patient returned call and given provider's message below and patient verbalized understanding. Shilo Lowe RN Left vm for patient to return call to nurse for provider's message. This findings of possible this and non specific that are related to her fast heart rate. She should follow up with the primary team, when she is calm and not ill, and the EKG can be rechecked then. I recommended follow ups, and I referred her to gynecology, but I do not see this being scheduled. Patient calls after reviewing EKG results in from 04/30/2023. Patient very concerned with the possible left atrial enlargement and asking provider to review and advise if anything further is needed and asking what that could mean as she has never had heart issues previously. EKG IMPRESSION: SINUS TACHYCARDIA POSSIBLE LEFT ATRIAL ENLARGEMENT NONSPECIFIC ST AND T WAVE ABNORMALITY ABNORMAL ECG Violeta Howard RN documented in this encounter [facility] 05-02-2023 Miscellaneous Notes Patient given results and verbalized understanding of instructions given. Michelle Monique Please let patient know that her urine culture showed an infection, but there is resistance to the antibiotic prescribed-bactrim. I would recommend stopping the bactrim and switching to keflex (allergy to macrobid). If you develop a fever >100, vomiting, severe abdominal/back pain to seek care sooner in the ED. F/u if symptoms are not resolving. The following approved medication requests have been transmitted electronically. Requested Prescriptions Signed Prescriptions Disp Refills cephALEXin (KEFLEX) 500 mg capsule 14 capsule 0 Sig: Take 1 capsule by mouth two times a day for 7 days. Authorizing Provider: KEITH DIAZ PA-C documented in this encounter [facility] 04-30-2023 History of Present illness Narrative This note was created using NoteWriter. Subjective Patient presents with: Palpitations: Immunizations: Flu vaccination Pat Knight is a 43 year old female. She went to to have her urinary tract infection rechecked, as she was not getting relief as quickly as expected. Fever resolved. She was found to be significantly tachycardic. She had no current cardiac diagnosis. She admitted was anxious and gets panic attacks. She requested albuterol prescribed to her children. 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 Review of Systems Constitutional: Negative for fatigue, fever and unexpected weight change. Respiratory: Negative for chest tightness and shortness of breath. Cardiovascular: Negative for chest pain, palpitations and leg swelling. Gastrointestinal: Negative for diarrhea, nausea and vomiting. Genitourinary: Positive for dysuria and pelvic pain. Neurological: Negative for dizziness and light-headedness. ACTIVE PROBLEM LIST Allergic Rhinitis, Cause Unspecified Diarrhea Chronic Pain Depression Anxiety Add (Attention Deficit Hyperactivity Disorder, Inattentive Type) Hepatitis C Virus Infection Without Hepatic Coma Insomnia Social History Tobacco Use Smoking status: Every Day Packs/day: 1.00 Years: 14.00 Additional pack years: 0.00 Total pack years: 14.00 Types: Cigarettes Smokeless tobacco: Never Vaping Use Vaping Use: Never used Substance Use Topics Alcohol use: No Drug use: No Current Outpatient Medications Medication Sig sulfamethoxazole-trimethoprim (BACTRIM DS) 800-160 mg per tablet Take 1 tablet by mouth two times a day for 7 days. oxyCODONE-acetaminophen (PERCOCET) 5-325 mg tablet Take 1 tablet by mouth every 8 hours as needed for pain for up to 14 days. acetaminophen (TYLENOL) 325 mg tablet Take 650 mg by mouth every 6 hours as needed. traZODone (DESYREL) 100 mg tablet Take 1 tablet by mouth daily at bedtime. No current facility-administered medications for this visit. Objective BP 124/85 Pulse (!) 147 Resp 18 Wt 57.6 kg (127 lb) LMP 05/07/2009 BMI 21.13 kg/m Physical Exam Constitutional: General: She is not in acute distress. Appearance: She is not diaphoretic. Eyes: Conjunctiva/sclera: Conjunctivae normal. Cardiovascular: Rate and Rhythm: Regular rhythm. Tachycardia present. Heart sounds: No murmur heard. No gallop. Pulmonary: Effort: No respiratory distress. Breath sounds: No wheezing or rales. Musculoskeletal: Right lower leg: No edema. Left lower leg: No edema. Neurological: Mental Status: She is alert. Gait: Gait normal. Psychiatric: Attention and Perception: Attention normal. Mood and Affect: Mood is anxious. Speech: Speech normal. EKG RESULTS: sinus tachycardia Assessment and Plan 1. Tachycardia - ICD9: 785.0, ICD10: R00.0 (primary diagnosis) Reassured. Hydration and relaxation stressed. - ECG COMPLETE 2. Encounter for immunization - ICD9: V03.89, ICD10: Z23 3. Need for influenza vaccination - ICD9: V04.81, ICD10: Z23 - INFLUENZA VACCINE, AGE 6 MO - 64 YR, QUADRIVALENT (AFLURIA, FLULAVAL, FLUZONE) 4. Need for vaccination - ICD9: V05.9, ICD10: Z23 - PNEUMOCOCCAL VACCINE (PREVNAR 20) 5. Anxiety - ICD9: 300.00, ICD10: F41.9 Managed by relaxation techniques. 6. Tobacco use disorder - ICD9: 305.1, ICD10: F17.200 - Cessation encouraged. 7. Screening for cervical cancer - ICD9: V76.2, ICD10: Z12.4 - CONSULT TO GYNECOLOGY Rick Queen MD documented in this encounter [facility] 04-30-2023 History of Present illness Narrative CC: Patient presents with: Urinary Problem: Was seen on 04/25 and having no relief with current UTI meds HPI Pat Knight is a 43 year old female who presents with above complaint. Patient was see in primary care on 04/25 for UTI symptoms. Urine dip was positive and she was started on Bactrim. Today patient reports minimal improvement in symptoms, denies any worsening or new symptoms. She is taking Bactrim as prescribed. Associated symptoms: burning and pressure Denies: foul smelling urine, backpain, hematuria, fever, chills, abdominal pain, and flank pain The ROS was otherwise negative. PMH, Medications, labs, allergies, and recent past visits with PCP were reviewed and updated as able. PHYSICAL EXAM: BP 117/84 Pulse (!) 149 Temp 36.6 C (97.8 F) Resp 20 Wt 57.6 kg (127 lb) LMP 05/07/2009 SpO2 99% BMI 21.13 kg/m General: Well appearing and alert CV: Regular rate and rhythm without obvious murmur Lungs: clear to auscultation bilaterally Back: no CVA tenderness Abdomen: soft, nontender, nondistended Component Latest Ref Rng & Units 04/25/2023 04/30/2023 GLUCOSE UA (POCT) Negative mg/dL Negative Negative BILIRUBIN UA (POCT) Negative Negative Negative KETONE UA (POCT) Negative mg/dL Negative Negative SPECIFIC GRAVITY UA (POCT) 1.005 - 1.030 1.025 <=1.005 (A) HEMOGLOBIN/BLOOD UA (POCT) Negative Trace-intact (A) Negative PH UA (POCT) 4.5 - 8.0 6.5 6.0 PROTEIN UA (POCT) Negative mg/dL Negative 30 (A) UROBILINOGEN UA (POCT) Normal E.U./dL 0.2 0.2 NITRITE UA (POCT) Negative Negative Negative LEUKOCYTES UA (POCT) Negative Large (A) Negative COLOR UA (POCT) Yellow Yellow CLARITY UA (POCT) Clear Clear ASSESSMENT/PLAN: 1. Dysuria - ICD9: 788.1, ICD10: R30.0 Minimal improvement in symptoms, patient has only been on antibiotics for a few days. Urine dip today essentially negative, no culture sent on 04/25 - send URINE CULTURE today - continue with Bactrim for now - referred to primary care for tachycardia Prescription instructions reviewed with patient as applicable. Potential red flag symptoms discussed with the patient. Reviewed appropriate action plan to take if red flag symptoms occur. Patient agreeable to treatment plan. Anny Pham APRN.LUIS DANIEL documented in this encounter [facility] 04-25-2023 Miscellaneous Notes Spoke with patient. Given message from provider's office. Patient verbalizes understanding. Aline Melvin RN Spoke with Binu/Pharmacist at [facility], states the escripted RX foe Percocet received and starting to fill it. Patient aware. Karen Shore LPN Addended by: MAILE NORMAN on: 04/25/2023 06:14 PM Modules accepted: Orders The following approved medication requests have been transmitted electronically. Requested Prescriptions Signed Prescriptions Disp Refills oxyCODONE-acetaminophen (PERCOCET) 5-325 mg tablet 42 tablet 0 Sig: Take 1 tablet by mouth every 8 hours as needed for pain for up to 14 days. Authorizing Provider: MAILE NORMAN MD Noted needed refilled today and needed new RX escripted. Addended by: ALINE MELVIN on: 04/25/2023 06:01 PM Modules accepted: Orders Addended by: ALINE MELVIN on: 04/25/2023 05:43 PM Modules accepted: Orders Francisco, pharmacist @ [facility] calling to say patient brought printed script to pharmacy and then brought the script back to the clinic and she is not sure where that script is at this time. He says he needs a new e script with start date 04/25/23 in order to fill Percocet tonight. If agree, pended. Aline Melvin RN Francisco Pharmacist [facility] called and is notified of providers message and instructions. Gave a verbal order of medication as the order had been printed. He voices understanding. Otilia Douglas RN Ok to give verbal ok for fill today since increasing dose and pt will be out of state after today. Please see if a new script needs sent. [facility] calling for verbal okay to fill Percocet today. Pharmacist states patient says this was discussed at today's OV. Aline Melvin RN documented in this encounter [facility] 04-25-2023 Miscellaneous Notes Addended by: SAM KHAN on: 04/25/2023 03:43 PM Modules accepted: Orders documented in this encounter [facility] 04-25-2023 History of Present illness Narrative SUBJECTIVE Pat Knight is a 43 year old female here today for a check up on her medical problems. Chief Complaint Patient presents with: UTI: lower abdominal pain and burning right shoulder: with work related injury treats with oral pain medication percocet, deep heating rub, Pain management has rescheduled her twice. Completed PT through Would like a referral to ortho at [facility] to discuss options HPI Pat Knight is a 43 year old female. Here today for concerns of a possible UTI. Bladder pain with urination. Also having issues still with her shoulder causing pain. Would like to see ortho with [facility] if possible. Her medications were reviewed today and her list is now up to date. Medications Current Outpatient Medications Medication Sig acetaminophen (TYLENOL) 325 mg tablet Take 650 mg by mouth every 6 hours as needed. traZODone (DESYREL) 100 mg tablet Take 1 tablet by mouth daily at bedtime. [START ON 04/27/2023] oxyCODONE-acetaminophen (PERCOCET) 5-325 mg tablet Take 1 tablet by mouth every 8 hours as needed for pain for up to 14 days. Do not start before April 27, 2023. sulfamethoxazole-trimethoprim (BACTRIM DS) 800-160 mg per tablet Take 1 tablet by mouth two times a day for 7 days. No current facility-administered medications for this visit. ALLERGIES Allergen Reactions Pamprin Multi-Sympt* Rash, Itching, Shortness of Breath Severe itching all over body, slight rash, hyper ventilating, lips swelled badly Buspar [Buspirone] Mental Status Change Caused suicidal thoughts Codeine Hives, Itching Lamotrigine Hives Nitrofurantoin Macr* Unknown Promethazine-Phenyl* Intolerance Make her feel like passing out ACTIVE PROBLEM LIST Insomnia - 01/26/2017 Hepatitis C Virus Infection Without Hepatic Coma - 06/15/2016 Add (Attention Deficit Hyperactivity Disorder, Inattentive Type) - 09/19/2013 Depression Anxiety Chronic Pain - 05/29/2010 Comment: Pt to have f/u with [facility] 06/01/10. No further NARCS per PCP. Diarrhea Allergic Rhinitis, Cause Unspecified - 04/05/2006 Social History Tobacco Use Smoking status: Every Day Packs/day: 1.00 Years: 14.00 Additional pack years: 0.00 Total pack years: 14.00 Types: Cigarettes Smokeless tobacco: Never Vaping Use Vaping Use: Never used Substance Use Topics Alcohol use: No Drug use: No Review of Systems Respiratory: Negative. Cardiovascular: Negative. OBJECTIVE BP 110/80 Pulse 119 Wt 128 lb (58.1kg) SpO2 98% LMP 05/07/2009 Physical Exam Vitals and nursing note reviewed. Constitutional: General: She is awake. She is not in acute distress. Appearance: Normal appearance. She is well-developed and well-groomed. She is not ill-appearing, toxic-appearing or diaphoretic. HENT: Head: Normocephalic. Right Ear: External ear normal. Left Ear: External ear normal. Nose: Nose normal. Eyes: General: Vision grossly intact. Conjunctiva/sclera: Conjunctivae normal. Pupils: Pupils are equal, round, and reactive to light. Neck: Vascular: No JVD. Trachea: Trachea normal. Pulmonary: Effort: Pulmonary effort is normal. No accessory muscle usage, prolonged expiration or respiratory distress. Musculoskeletal: Cervical back: Neck supple. Skin: General: Skin is warm and dry. Capillary Refill: Capillary refill takes less than 2 seconds. Neurological: General: No focal deficit present. Mental Status: She is alert and oriented to person, place, and time. Mental status is at baseline. Psychiatric: Attention and Perception: Attention and perception normal. Mood and Affect: Mood and affect normal. Speech: Speech normal. Behavior: Behavior normal. Behavior is cooperative. Thought Content: Thought content normal. Cognition and Memory: Cognition and memory normal. Judgment: Judgment normal. ASSESSMENT/PLAN: 1. Acute cystitis with hematuria - ICD9: 595.0, ICD10: N30.01 (primary diagnosis) Start bactrim, positive hematuria and for leukocytes. - UA DIP B/O - SULFAMETHOXAZOLE 800 MG-TRIMETHOPRIM 160 MG TABLET 2. Tear of right glenoid labrum, subsequent encounter - ICD9: V58.89, 840.8, ICD10: S43.431D - CONSULT TO ORTHOPAEDICS - OXYCODONE-ACETAMINOPHEN 5 MG-325 MG TABLET 3. Chronic right shoulder pain - ICD9: 719.41, 338.29, ICD10: M25.511, G89.29 - CONSULT TO ORTHOPAEDICS - OXYCODONE-ACETAMINOPHEN 5 MG-325 MG TABLET Portions of this note have been entered by ancillary staff. I have reviewed and when necessary edited, so that they are an adequate record of my encounter with this patient Please note that parts of this document were created using voice recognition software and therefore may contain grammatical errors. Patient verbalizes understanding of instructions from today's visit and in agreement with treatment plan. Questions answered. Agrees to call the office if questions, concerns of issues with acute symptoms not improving or if they worsen. See diagnoses and orders for additional plan(s). Allergies and medications were reviewed, list was updated, and refills given if needed. Past medical, surgical, social, and family history reviewed and updated as appropriate. Encouraged proper diet & exercise as well as compliance with taking medications. Age-appropriate health preventative measures were discussed. Return for Keep next scheduled appointment.. Sam Khan APRN-LUIS DANIEL documented in this encounter [facility] 04-25-2023 Instructions Sujatha Simpson LPN - 04/25/2023 2:55 PM EDT Images from the original note were not included. Urinary Problem-When to Seek Help? Symptoms of a urinary problem may lead to a bladder infection. Women are at greater risk of a urinary tract infection than are men. Most urinary tract infections in women are caused by bacteria and involve the lower urinary tract including the bladder and urethra. Symptoms: Pain or burning when passing urine, urgency, frequency, blood in the urine, difficult emptying your bladder, and lower abdominal fullness or pressure. Common Causes: Sexual intercourse, menopause, constipation, uncontrolled diabetes, dehydration and feminine products such as tampons, and kidney stones. When to Get Help: Seek medical attention if you get frequent bladder infections, urinary concerns such as leakage, blood in the urine or frequent need to urinate. You may be recommended to get help from a specialist, such as a urologist. Diagnosis & Treatment: Lab testing may include: urinalysis, and urine culture that can be collected in the lab or walk-in clinic. Most bladder infections can easily be treated. A physician, nurse practitioner or physician retail assistant manager may treat with a short course of an antibiotic. Delaying treatment can lead to worsening symptoms, like a kidney infection. Self-Care: Avoid a full bladder, bubble baths, bath oils, food and beverages that may irritate the bladder such as caffeine. Avoid spermicide foam and diaphragms Void before and after sexual intercourse Wipe front to back after using the bathroom. Stay hydrated Stop Smoking Follow-up Care: Follow up testing is not needed in healthy young women if symptoms resolve. documented in this encounter [facility] 04-11-2023 Miscellaneous Notes Tried calling patient three times, kept getting the busy signal so no message could be left. Left patient a [employer] message regarding this appointment reschedule. documented in this encounter [facility] 03-30-2023 Miscellaneous Notes Patient notified of CBC, voicemail, advised probable viral, monitor symptoms, if worsening to ER, other alarcon should clear in next few days. Follow up with Dr You as needed. Oksana Weldon APRN.LUIS DANIEL documented in this encounter [facility] 03-30-2023 History of Present illness Narrative Radiology Service Progress Note PATIENT NAME: Pat Knight DATE OF SERVICE: March 30, 2023 TIME: 8:38 AM PATIENT IDENTITY VERIFICATION COMPLETED USING TWO (2) IDENTIFIERS: Name and Date of confirmed by patient verbally. FALL SCREENING: Has the patient had 2 falls in the last year or 1 fall with injury or currently using an Ambulatory Assistive Device (Walker, Cane, Wheelchair, Crutches, etc.)? No PATIENT GENDER DATA: Female. status: : No status: NO. PATIENT RELEVANT IMPLANT DATA REVIEWED: Yes RADIOLOGY DEPARTMENT: General X-ray: Exam(s) Completed: Chest X-Ray PERIPHERAL IV DATA: Not applicable SIGNED BY: RT Samira(R) March 30, 2023 8:38 AM documented in this encounter [facility] 03-18-2023 Miscellaneous Notes Noted plans to continue pain med till see pain management per [employer] messages between patient and Sam. The following approved medication requests have been transmitted electronically. Requested Prescriptions Signed Prescriptions Disp Refills oxyCODONE-acetaminophen (PERCOCET) 5-325 mg tablet 28 tablet 0 Sig: Take 1 tablet by mouth twice daily as needed for pain for up to 14 days. Do not start before March 21, 2023. Authorizing Provider: MAILE NORMAN MD Patient has been identified by name and date of : Yes, Provider Ester Date 03-18-23 Time 9:17 am Patient phones for refill(s): Requested Prescriptions Pending Prescriptions Disp Refills oxyCODONE-acetaminophen (PERCOCET) 5-325 mg tablet 28 tablet 0 Sig: Take 1 tablet by mouth twice daily as needed for pain for up to 14 days. Date of last office visit with pcp: 02-08-23. Next appt: none Last 2 Encounter Wt Readings: Date: Wt: 02/08/2023 58.1 kg (128 lb) 01/10/2023 59.9 kg (132 lb) Previous labs/tests for medication: Blood Pressure: BUN (mg/dL) Date Value 05/17/2022 8 08/24/2018 8 Sodium (mmol/L) Date Value 05/17/2022 141 08/24/2018 139 Last 1 Encounter BP Readings: Date: BP: 02/08/2023 102/80 Liver Function: ALT (U/L) Date Value 05/17/2022 6 08/24/2018 12 AST (U/L) Date Value 05/17/2022 14 08/24/2018 15 Please advise. Thank you. Sharon Sutherland RN documented in this encounter [facility] 03-15-2023 Hospital Discharge instructions Patient Education 03/15/2023 11:20:46 Shoulder Sprain Shoulder Sprain A sprain is a stretching or tearing of the ligaments that hold a joint together. A sprain may take up to 8 weeks to fully heal, depending on how severe it is. Moderate to severe shoulder sprains are treated with a sling or shoulder immobilizer. Minor sprains can be treated without any special support. Home care The following guidelines will help you care for your injury at home: If a sling was given to you, leave it in place for the time advised by your healthcare provider. If you aren t sure how long to wear it, ask for advice. If the sling becomes loose, adjust it so that your forearm is level with the ground. Your shoulder should feel well supported. Put an ice pack on the injured area for 20 minutes every 1 to 2 hours the first day. You can make your own ice pack by putting ice cubes in a plastic bag. A bag of frozen peas or something similar works well too. Wrap the bag in a thin towel. Continue with ice packs 3 to 4 times a day for the next 2 to 3 days. Then use the pack as needed to ease pain and swelling. You may use acetaminophen or ibuprofen to control pain, unless another pain medicine was prescribed. If you have chronic liver or kidney disease, talk with your healthcare provider before using these medicines. Also talk with your provider if you ve had a stomach ulcer or gastrointestinal bleeding. Shoulder joints become stiff if left in a sling for too long. You should start range of motion exercises about 7 to 10 days after the injury. Talk with your provider to find out what type of exercises to do and how soon to start. Follow-up care Follow up with your healthcare provider, or as advised. Any X-rays you had today don t show any broken bones, breaks, or fractures. Sometimes fractures don t show up on the first X-ray. Bruises and sprains can sometimes hurt as much as a fracture. These injuries can take time to heal completely. If your symptoms don t improve or they get worse, talk with your provider. You may need a repeat X-ray or other treatments. When to seek medical advice Call your healthcare provider right away if any of these occur: Shoulder pain or swelling in your arm that gets worse Fingers become cold, blue, numb, or tingly Large amount of bruising of the shoulder or upper arm Fever or chills [id number] [employer]. [address] [place] [address]. All rights reserved. This information is not intended as a substitute for professional medical care. Always follow your healthcare professional's instructions. Follow Up Care 03/15/2023 09:47:09 With:MAILE NORMAN MD Address: [address] [place] [address]- When:2-4 days [facility] 03-15-2023 Note Discharge Instructions Thank you for allowing [facility] to assist you with your healthcare needs. The following is important discharge information regarding your hospital visit. Diagnosis from Today's Visit Shoulder pain-swelling Shoulder strain What to Do Next Instructions from Your Care Team Discharge Home Equipment - Ordered -- Sling, Arm Right, 1 month(s), 03/15/23 10:40:00 EDT Post Acute Orders No qualifying data available. You Need to Schedule the Following Appointments Follow Up with MAILE NORMAN MD When Within 2-4 days Where: [address] [place] [address]- Allergies LaMICtal Pamprin Maximum Pain codeine Medications Please ask your primary doctor or pharmacist before taking any other medication not listed, including over the counter drugs, herbal medications, vitamins and or supplements as they may interact with your home medications. What How Much When Why Instructions Last Dose New orphenadrine (orphenadrine 100 mg oral tablet, extended release) 1 tab(s) by mouth Two (2) times a day Duration: 7 Days Printed Prescription New traMADol (traMADol 50 mg oral tablet) 1 tab(s) by mouth Every 4 hours as needed for for pain Shoulder strain Duration: 3 Days Printed Prescription Unchanged traZODone (traZODone 100 mg oral tablet) 1 tab(s) by mouth Three (3) times a day Please take this list to your next doctor s visit. Bring all medications you take, including over the counter medications, herbals and other supplements with you to your doctor s visit. Patients and families are reminded to discard old lists and to update any records with all medication providers or retail pharmacies. Medication Leaflets orphenadrine (or FEN a drin) What is the most important information I should know about orphenadrine? You should not take this medicine if you have urination problems, an enlarged prostate, glaucoma, a stomach ulcer or blockage in your digestive tract, trouble swallowing, or myasthenia gravis. What is orphenadrine? Orphenadrine is a muscle relaxer. Orphenadrine is used together with rest and physical therapy to treat skeletal muscle conditions such as pain or injury. Orphenadrine may also be used for purposes not listed in this medication guide. What should I discuss with my healthcare provider before taking orphenadrine? You should not use orphenadrine if you are allergic to it, or if you have: urination problems; an enlarged prostate; glaucoma; a stomach ulcer; a blockage in your stomach or intestines; trouble swallowing; or myasthenia gravis. To make sure orphenadrine is safe for you, tell your doctor if you have: heart disease; a heart rhythm disorder; coronary artery disease; or if you also use a narcotic (opioid) medication. It is not known whether this medicine will harm an unborn baby. Tell your doctor if you are or plan to become . It is not known whether orphenadrine passes into breast milk or if it could affect the nursing baby. Tell your doctor if you are breast-feeding. Orphenadrine is not approved for use by anyone younger than 18 years old. How should I take orphenadrine? Follow all directions on your prescription label. Do not take this medicine in larger or smaller amounts or for longer than recommended. Orphenadrine may be habit-forming. Never share orphenadrine with another person, especially someone with a history of drug abuse or addiction. Keep the medication in a place where others cannot get to it. Selling or giving away this medicine is against the law. Orphenadrine is usually taken 2 times per day, once in the morning and once in the evening. Follow your doctor's dosing instructions. Do not crush, chew, or break an extended-release tablet. Swallow it whole. Orphenadrine is only part of a complete program of treatment that may also include rest, physical therapy, or other pain relief measures. Store orphenadrine at room temperature away from moisture, heat, and light. Keep the bottle tightly closed when not in use. Keep track of the amount of medicine used from each new bottle. Orphenadrine is a drug of abuse and you should be aware if anyone is using your medicine improperly or without a prescription. What happens if I miss a dose? Take the missed dose as soon as you remember. Skip the missed dose if it is almost time for your next scheduled dose. Do not take extra medicine to make up the missed dose. What happens if I overdose? Seek emergency medical attention or call the Poison Help line at . What should I avoid while taking orphenadrine? This medicine may impair your thinking or reactions. Be careful if you drive or do anything that requires you to be alert. Do not drink alcohol. Dangerous side effects or can occur. What are the possible side effects of orphenadrine? Get emergency medical help if you have signs of an allergic reaction: hives; difficult breathing; swelling of your face, lips, tongue, or throat. Stop using orphenadrine and call your doctor at once if you have: a light-headed feeling, like you might pass out; painful or difficult urination; little or no urination; confusion, anxiety, agitation, tremors, hallucinations; or pounding heartbeats or fluttering in your chest. Common side effects may include: dizziness, drowsiness, weakness; nausea, vomiting; dry mouth; or constipation. This is not a complete list of side effects and others may occur. Tell your doctor about any unusual or bothersome side effect. You may report side effects to FDA at 3-181-PYZ-0574. What other drugs will affect orphenadrine? Taking orphenadrine with other drugs that make you sleepy or slow your breathing can cause dangerous side effects or . Ask your doctor before taking a sleeping pill, narcotic pain medicine, prescription cough medicine, a muscle relaxer, or medicine for anxiety, depression, or seizures. Other drugs may interact with orphenadrine, including prescription and stsa-mqa-rdmybbk medicines, vitamins, and herbal products. Tell each of your health care providers about all medicines you use now and any medicine you start or stop using. Where can I get more information? Your pharmacist can provide more information about orphenadrine. Remember, keep this and all other medicines out of the reach of children, never share your medicines with others, and use this medication only for the indication prescribed. Every effort has been made to ensure that the information provided by [employer]. ('[employer]') is accurate, up-to-date, and complete, but no guarantee is made to that effect. Drug information contained herein may be time sensitive. [employer] information has been compiled for use by healthcare practitioners and consumers in the [place] and therefore [employer] does not warrant that uses outside of the [place] are appropriate, unless specifically indicated otherwise. [employer] drug information does not endorse drugs, diagnose patients or recommend therapy. [employer] drug information is an informational resource designed to assist licensed healthcare practitioners in caring for their patients and/or to serve consumers viewing this service as a supplement to, and not a substitute for, the expertise, skill, knowledge and judgment of healthcare practitioners. The absence of a warning for a given drug or drug combination in no way should be construed to indicate that the drug or drug combination is safe, effective or appropriate for any given patient. [employer] does not assume any responsibility for any aspect of healthcare administered with the aid of information [employer] provides. The information contained herein is not intended to cover all possible uses, directions, precautions, warnings, drug interactions, allergic reactions, or adverse effects. If you have questions about the drugs you are taking, check with your doctor, nurse or pharmacist. Copyright 1842-0188 [employer]. Version: 7.01. Revision Date: 02/02/2023. tramadol (TRAM a dol) [place]ulwant, [place], TraMADol Hydrochloride ER (Eqv-Ryzolt), TraMADol Hydrochloride ER (Eqv-Ultram ER), Ultram What is the most important information I should know about tramadol? MISUSE OF THIS MEDICINE CAN CAUSE ADDICTION, OVERDOSE, OR . Keep this medicine where others cannot get to it. Tramadol should not be given to a child younger than 12 years old, or anyone younger than 18 years old who recently had surgery to remove the tonsils or adenoids. Ultram ER should not be given to anyone younger than 18 years old. Taking tramadol during may cause life-threatening withdrawal symptoms in the . Fatal side effects may occur if you use also use alcohol or other drugs that cause drowsiness or slow breathing. What is tramadol? Tramadol is an pain medicine similar to an opioid. Tramadol is used to treat moderate to severe pain. The extended-release form of tramadol is for zociud-rre-qlqbc treatment of pain. This form of tramadol is not for use on an as-needed basis for pain. Tramadol may also be used for purposes not listed in this medication guide. What should I discuss with my healthcare provider before taking tramadol? You should not take tramadol if you are allergic to it, or if you have: severe asthma or breathing problems; a stomach or bowel obstruction (including paralytic ileus); if you have recently used alcohol, sedatives, tranquilizers, or narcotic medications; or if you have used an MAO inhibitor in the past 14 days (such as isocarboxazid, linezolid, methylene blue injection, phenelzine, or tranylcypromine). Tramadol should not be given to a child younger than 12 years old. Ultram ER should not be given to anyone younger than 18 years old. Do not give tramadol to anyone younger than 18 years old who recently had surgery to remove the tonsils or adenoids. Seizures have occurred in some people taking tramadol. Your seizure risk may be higher if you have ever had: a head injury, epilepsy or other seizure disorder; drug or alcohol addiction; or a metabolic disorder. Tell your doctor if you have ever had: breathing problems, sleep apnea; liver or kidney disease; urination problems; problems with your gallbladder, pancreas, or thyroid; a stomach disorder; or mental illness, or suicide attempt. If you use tramadol during , your baby could be born with life-threatening withdrawal symptoms, and may need medical treatment for several weeks. Ask a doctor before using tramadol if you are . Tell your doctor if you notice severe drowsiness or slow breathing in the nursing baby. How should I take tramadol? Follow the directions on your prescription label and read all medication guides. Never use tramadol in larger amounts, or for longer than prescribed. Tell your doctor if you feel an increased urge to take more of this medicine. Never share tramadol with another person, especially someone with a history of drug addiction. MISUSE CAN CAUSE ADDICTION, OVERDOSE, OR . Keep the medicine where others cannot get to it. Selling or giving away this medicine is against the law. Stop taking all other opioid medications when you start taking tramadol. Tramadol can be taken with or without food, but take it the same way each time. Swallow the capsule or tablet whole to avoid exposure to a potentially fatal overdose. Do not crush, chew, break, open, or dissolve. Measure liquid medicine with the supplied syringe or a dose-measuring device (not a kitchen spoon). Never crush or break a tramadol pill to inhale the powder or mix it into a liquid to inject the drug into your vein. This practice has resulted in . You may have withdrawal symptoms if you stop using tramadol suddenly. Ask your doctor before stopping the medicine. Store at room temperature away from moisture and heat. Keep track of your medicine. You should be aware if anyone is using it improperly or without a prescription. Do not keep leftover tramadol. Just one dose can cause in someone using it accidentally or improperly. Ask your pharmacist where to locate a drug take-back disposal program. If there is no take-back program, mix the leftover medicine with cat litter or coffee grounds in a sealed plastic bag throw the bag in the trash. What happens if I miss a dose? Since tramadol is used for pain, you are not likely to miss a dose. Skip any missed dose if it is almost time for your next dose. Do not use two doses at one time. What happens if I overdose? Seek emergency medical attention or call the Poison Help line at . An overdose can be fatal, especially in a child or other person using the medicine without a prescription. Overdose symptoms may include severe drowsiness, pinpoint pupils, slow breathing, or no breathing. Your doctor may recommend you get naloxone (a medicine to reverse an opioid overdose) and keep it with you at all times. A person caring for you can give the naloxone if you stop breathing or don't wake up. Your caregiver must still get emergency medical help and may need to perform CPR (cardiopulmonary resuscitation) on you while waiting for help to arrive. Anyone can buy naloxone from a pharmacy or local health department. Make sure any person caring for you knows where you keep naloxone and how to use it. What should I avoid while taking tramadol? Do not drink alcohol. Dangerous side effects or could occur. Avoid driving or hazardous activity until you know how this medicine will affect you. Dizziness or drowsiness can cause falls, accidents, or severe injuries. What are the possible side effects of tramadol? Get emergency medical help if you have signs of an allergic reaction (hives, difficult breathing, swelling in your face or throat) or a severe skin reaction (fever, sore throat, burning in your eyes, skin pain, red or purple skin rash that spreads and causes blistering and peeling). Tramadol can slow or stop your breathing, and may occur. A person caring for you should give naloxone and/or seek emergency medical attention if you have slow breathing with long pauses, blue colored lips, or if you are hard to wake up. Call your doctor at once if you have: noisy breathing, sighing, shallow breathing, breathing that stops during sleep; a slow heart rate or weak pulse; a light-headed feeling, like you might pass out; seizure (convulsions); or low cortisol levels--nausea, vomiting, loss of appetite, dizziness, worsening tiredness or weakness. Seek medical attention right away if you have symptoms of serotonin syndrome, such as: agitation, hallucinations, fever, sweating, shivering, fast heart rate, muscle stiffness, twitching, loss of coordination, nausea, vomiting, or diarrhea. Serious breathing problems may be more likely in older adults and people who are debilitated or have wasting syndrome or chronic breathing disorders. Common side effects may include: constipation, nausea, vomiting, stomach pain; dizziness, drowsiness, tiredness; headache; or itching. This is not a complete list of side effects and others may occur. Call your doctor for medical advice about side effects. You may report side effects to FDA at 8-245-USV-3064. What other drugs will affect tramadol? You may have breathing problems or withdrawal symptoms if you start or stop taking certain other medicines. Tell your doctor if you also use an antibiotic, antifungal medication, heart or blood pressure medication, seizure medication, or medicine to treat HIV or hepatitis C. Many other drugs can be dangerous when used with tramadol. Tell your doctor if you also use: medicine for allergies, asthma, blood pressure, motion sickness, irritable bowel, or overactive bladder; other opioid medicines; a benzodiazepine sedative like Valium, Klonopin, or Xanax; sleep medicine, muscle relaxers, or other drugs that make you drowsy; or drugs that affect serotonin, such as antidepressants, stimulants, or medicine for migraines or Parkinson's disease. This list is not complete. Other drugs may affect tramadol, including prescription and zqah-gsg-ktpnejo medicines, vitamins, and herbal products. Not all possible interactions are listed here. Many other drugs can be dangerous when used with tramadol. Tell your doctor if you also use: medicine for allergies, asthma, blood pressure, motion sickness, irritable bowel, or overactive bladder; other opioid medicines; a benzodiazepine sedative like Valium, Klonopin, or Xanax; sleep medicine, muscle relaxers, or other drugs that make you drowsy; drugs that affect serotonin, such as antidepressants, stimulants, or medicine for migraines or Parkinson's disease. drugs that affect serotonin levels in your body--a stimulant, or medicine for depression, Parkinson's disease, migraine headaches, serious infections, or nausea and vomiting. This list is not complete. Many other drugs may affect tramadol. This includes prescription and cnku-hfh-ckgerln medicines, vitamins, and herbal products. Not all possible drug interactions are listed here. Where can I get more information? Your doctor or pharmacist can provide more information about tramadol. Remember, keep this and all other medicines out of the reach of children, never share your medicines with others, and use this medication only for the indication prescribed. Every effort has been made to ensure that the information provided by [employer]. ('[employer]') is accurate, up-to-date, and complete, but no guarantee is made to that effect. Drug information contained herein may be time sensitive. [employer] information has been compiled for use by healthcare practitioners and consumers in the [place] and therefore [employer] does not warrant that uses outside of the [place] are appropriate, unless specifically indicated otherwise. [employer] drug information does not endorse drugs, diagnose patients or recommend therapy. [employer] drug information is an informational resource designed to assist licensed healthcare practitioners in caring for their patients and/or to serve consumers viewing this service as a supplement to, and not a substitute for, the expertise, skill, knowledge and judgment of healthcare practitioners. The absence of a warning for a given drug or drug combination in no way should be construed to indicate that the drug or drug combination is safe, effective or appropriate for any given patient. [employer] does not assume any responsibility for any aspect of healthcare administered with the aid of information [employer] provides. The information contained herein is not intended to cover all possible uses, directions, precautions, warnings, drug interactions, allergic reactions, or adverse effects. If you have questions about the drugs you are taking, check with your doctor, nurse or pharmacist. Copyright 2021-7241 [employer]. Version: 24.. Revision Date: 01/28/2023. Education Materials Shoulder Sprain A sprain is a stretching or tearing of the ligaments that hold a joint together. A sprain may take up to 8 weeks to fully heal, depending on how severe it is. Moderate to severe shoulder sprains are treated with a sling or shoulder immobilizer. Minor sprains can be treated without any special support. Home care The following guidelines will help you care for your injury at home: If a sling was given to you, leave it in place for the time advised by your healthcare provider. If you aren t sure how long to wear it, ask for advice. If the sling becomes loose, adjust it so that your forearm is level with the ground. Your shoulder should feel well supported. Put an ice pack on the injured area for 20 minutes every 1 to 2 hours the first day. You can make your own ice pack by putting ice cubes in a plastic bag. A bag of frozen peas or something similar works well too. Wrap the bag in a thin towel. Continue with ice packs 3 to 4 times a day for the next 2 to 3 days. Then use the pack as needed to ease pain and swelling. You may use acetaminophen or ibuprofen to control pain, unless another pain medicine was prescribed. If you have chronic liver or kidney disease, talk with your healthcare provider before using these medicines. Also talk with your provider if you ve had a stomach ulcer or gastrointestinal bleeding. Shoulder joints become stiff if left in a sling for too long. You should start range of motion exercises about 7 to 10 days after the injury. Talk with your provider to find out what type of exercises to do and how soon to start. Follow-up care Follow up with your healthcare provider, or as advised. Any X-rays you had today don t show any broken bones, breaks, or fractures. Sometimes fractures don t show up on the first X-ray. Bruises and sprains can sometimes hurt as much as a fracture. These injuries can take time to heal completely. If your symptoms don t improve or they get worse, talk with your provider. You may need a repeat X-ray or other treatments. When to seek medical advice Call your healthcare provider right away if any of these occur: Shoulder pain or swelling in your arm that gets worse Fingers become cold, blue, numb, or tingly Large amount of bruising of the shoulder or upper arm Fever or chills 8675-[address] [employer]. [address] [place] [address]. All rights reserved. This information is not intended as a substitute for professional medical care. Always follow your healthcare professional's instructions. Additional Information VACCINATE! IT SAVES LIVES! Members of the community who have not yet received the COVID-19 vaccine and would like to receive it can visit one of [facility] vaccine clinics. There are many vaccine clinic locations within the [facility]. For locations and available times, please visit www.[email or web address].[place].gov/. It is important to note that some COVID mobile vaccine clinics are held outdoors and may be canceled in rainy or stormy conditions. To learn more about pediatric vaccinations (ages 5-11), we invite you to visit the [facility] webpage. [email or web address]/pages/[email or web address]-Xipra-Zqreivdkeab-Frequently-Asked -Questions.html To learn more about the COVID-19 vaccine, we invite you to visit the CDC website for a list of frequently asked questions. https://www.cdc.gov/coronavirus/2019-n cov/vaccines/faq.html [facility] Patient Portal Access Instructions: Stay connected with your healthcare team and access your personal medical information anytime with the [facility] [facility] Patient Portal. If you would like a full copy of your medical records please contact the [facility] Medical Records Department Tuesday through Tuesday between 8a.m. and 4:30p.m. Please follow the directions below to access the portal: 1.Access the email account you provided upon registration to the [facility].2.Look for an invitation email from [facility].3.Open the email and access the invitation link: Accept Invitation to [facility]4.Fill in the required moore to create your account. Sign into www.[email or web address] with your username and password that you created in the above steps to stay up to date. You can then view a summary of results, a summary of your visits, and the ability to download your summaries to your computer or send the information securely to a physician. Remember that your healthcare information is confidential, so carefully consider who you will allow to register on the [facility] Patient Portal for access to your information. You can also access the [facility] Patient Portal on the [employer] lala. Simply click on Health Records under Health Data and then click on the [employer] logo. HOW TO SAFELY DISPOSE OF PRESCRIPTION MEDICATIONS Please use one of the following methods to safely dispose of your unused medications. 1.Use a drug disposal kit: the drug disposal pouch allows you to safely discard your old and unused drugs. Ask your nurse to give you one when you are discharged.2.Visit a local take-back location: Many local pharmacies and police departments have programs that collect old and unwanted prescription drugs. Call your local pharmacy or go to http://bit.CareinSync/8U6Qy4m to find one close to you.3.Make use of household items: Use cat litter or old coffee grounds to dispose medications if other options are not available. Mix your drugs with these household products, seal them in an airtight container and throw it into the garbage. Call [facility]: [phone] to be sure your drugs can be disposed of in this way. Some medicines may require a different approach.4.Never flush your medications down the toilet. IF YOU HAVE BEEN PRESCRIBED AN OPIOIDS FOR PAIN If you have been prescribed an opioid (such as hydrocodone, oxycodone or morphine), it is critical to understand the possible side effects and risks of opioid pain medications. Even when taken as directed, opioids can have several side effects including: Tolerance, meaning you might need to take more of a medication for the same pain relief. Nausea, vomiting and/or constipation. Sleepiness, dizziness, dry mouth, confusion, depression or itching. Physical dependence, meaning you have withdrawal symptoms when a medication is stopped ? this can develop within a few days. KNOW YOUR RESPONSIBILITIES It is important to know exactly how much and how often to take the opioid pain medications you are prescribed. Never take opioids in higher amounts or more often than prescribed. Do not combine opioids with alcohol or other drugs that cause drowsiness, such as benzodiazepines, also known as benzos, including diazepam and alprazolam, muscle relaxants or sleep aids. Never sell or share prescription opioids. This is illegal. Store opioids in a secure place and out of reach of others (including children, family, friends and visitors). The last page(s) of this document has been signed and retained as a CHART COPY Signatures Patient Education Materials Shoulder Sprain Medication Leaflets orphenadrine, tramadol My discharge plan and instructions have been reviewed and explained to me and I,PAT KNIGHT understand my current condition and have read and understand these discharge instructions. I have received a written copy of the plan/instructions. If I have questions, I am aware that I should contact my doctor. 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 History of injury to shoulder at work 1 month ago, FINDINGS: Axillary view could not be obtained due to inability to position patient. No fracture or dislocation is identified. There are no abnormal periarticular calcifications. The acromioclavicular joint is normal. The included thoracic structures show no acute abnormality. IMPRESSION: No acute fracture or dislocation. I have personally reviewed the images of this examination and agree with the resident's findings and interpretation. Interpreted by: Antonio Abreu MD Preliminary Report By: Anthony Ruffin Electronically signed By Antonio Abreu MD Dictated Date: 03/15/2023 10:45:24 AM Prelim Date: 03/15/2023 10:58:13 AM Sign Date: 03/15/2023 10:58:13 AM Ordering Provider: LAVONNE WEAVER [facility] 03-11-2023 History of Present illness Narrative Radiology Service Progress Note DATE OF SERVICE: March 11, 2023 TIME: 2:25 PM PATIENT IDENTITY VERIFICATION COMPLETED USING TWO (2) STANDARD IDENTIFIERS: Name and Date of confirmed by patient verbally. FALL SCREENING: Has the patient had 2 falls in the last year or 1 fall with injury or currently using an Ambulatory Assistive Device (Walker, Cane, Wheelchair, Crutches, etc.)? No PATIENT GENDER DATA: Female. status: : No status: NO. PATIENT RELEVANT IMPLANT DATA REVIEWED: Yes ALLERGIES: Reviewed and unchanged CONTRAST ALLERGY: NO. EXAM: MRI - CONTRAST TYPE: GROUP II PERIPHERAL IV DATA: Ambulatory: A peripheral IV was started in the Left antecubital site with a Angio cath: 22 gauge. RADIOLOGY DEPARTMENT: MR; Exam(s) Completed: Upper MSK: Shoulder, right SIGNATURE: RT Krys(R) PATIENT NAME: Pat Knight DATE: March 11, 2023 TIME: 2:25 PM documented in this encounter [facility] 03-07-2023 Miscellaneous Notes Message left on pt's VM with update below. Pt advised to contact PCP office for any questions or concerns. Shanon Lowe RN documented in this encounter [facility] 03-07-2023 Miscellaneous Notes I am just now getting a chance to fill this, refill sent, please let her know. Sam Khna APRN.LUIS DANIEL PDMP website checked and validated. All prescriptions have been APPROPRIATELY filled. No suspicious activity was identified. 03/07/2023 by Sam Khan APRN.LUIS DANIEL Patient returns call and asks if prescription can be sent in today before 11 am. She is completely out of medication and needs it mostly to get through work hours and that is when her shift starts. Violeta Howard RN Medication refill requested by Patient Requested Prescriptions Pending Prescriptions Disp Refills oxyCODONE-acetaminophen (PERCOCET) 5-325 mg tablet 28 tablet 0 Sig: Take 1 tablet by mouth twice daily as needed for pain for up to 14 days. Last encounter with this provider: 02/08/2023 Next appt: not scheduled Current Outpatient Medications on File Prior to Visit Medication Sig oxyCODONE-acetaminophen (PERCOCET) 5-325 mg tablet Take 1 tablet by mouth twice daily as needed for pain for up to 14 days. nicotine (NICODERM) 21 mg/24 hr Apply 1 Patch as directed every 24 hours. (Patient not taking: Reported on 02/08/2023) nicotine polacrilex (NICORETTE) 4 mg gum Take 1 Each by mouth as needed (urge to smoke). No more than 24 per day (Patient not taking: Reported on 02/08/2023) acetaminophen (TYLENOL) 325 mg tablet Take 650 mg by mouth every 6 hours as needed. traZODone (DESYREL) 100 mg tablet Take 1 tablet by mouth daily at bedtime. Shanon Lowe RN documented in this encounter [facility] 03-07-2023 Miscellaneous Notes Spoke with patient and she stated that her gyn is the one that wanted the MRI with and without. Did mention an arthrogram to patient and she denied this procedure. Radiology aware of same. Patient had made the request specifically, can we clarify with her if she would like this changed. Patient is scheduled 03/11/2023 for MRI of shoulder w/wo contrast. Tech called and states will not see/tell much additional with contrast. Is asking if you meant to order an arthrogram? This can not be completed at [facility] if so. Call ext [phone] with Sam's response to above. documented in this encounter [facility] 02-15-2023 History of Present illness Narrative POPULATION HEALTH NAVIGATION OUTREACH Action/[facility] Called pt to schedule an appt in Pain Management. Transferred to PAIN Support: Patient Identified by Name and : YES, via phone Outreach Outcome/Action Spoke to patient / parent / legal guardian: Patient will return the call or ask for return call Did you use a PCP flex slot to schedule this appointment? No Reason for Outreach Care Gap or Scheduling/Wellness visits Payer: Payor: [employer] / Plan: BLUE CARD PPO OOS / Product Type: PPO / Care Gap Reviewed:: Specialty Scheduling Reminder: Reminder note to check Health Maintenance for items below Health Maintenance items due: PNEUMOCOCCAL(1 - PCV) Never done HEPATITIS B(2 of 3 - Hep B Twinrix 3-dose series) due on 05/19/2016 MAMMOGRAM Never done PAP TESTING due on 09/28/2022 HPV TESTING due on 09/28/2022 Navigation Signature: Lizzy Hamlin February 15, 2023 3:19 PM documented in this encounter [facility] 02-08-2023 History of Present illness Narrative SUBJECTIVE Pat Knight is a 43 year old female here today for acute concern. Chief Complaint Patient presents with: Shoulder Injury: of right shoulder and requesting a MRI with contrast. This was a work related injury but due to paperwork issues the claim was closed. Has an tax associate attorney trying to appeal the decision. Consult: pain management for right shoulder injury until WC Claim can be approved. Sore Throat: started with fever 1 week ago. Cough moist slightly productive with yellow sputum. HPI Pat Knight is a 43 year old female established patient of Dr. Norman. Presents today acutely for concerns of continued right shoulder pain. Injury first occurred on 09/29/2022. Initial report was muscle strain, also found to have a labral tear of the right shoulder. 09/29/2022 was the date of the injury. 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 Has done PT. Has [facility] Traore with [facility] and Dr. Stapleton with [facility] for orthopaedics. Has had an MRI without contrast, was recommended she needs contrast MRI to better show the issues in the shoulder. Wants to see pain management in the mean time. Has done steroids. On muscle relaxers. Seen in ER at [facility] 01/25 because pain was so bothersome. Workers comp case, case was closed. Working with tax associate attorney. Her medications were reviewed today and her list is now up to date. Medications Current Outpatient Medications Medication Sig acetaminophen (TYLENOL) 325 mg tablet Take 650 mg by mouth every 6 hours as needed. traZODone (DESYREL) 100 mg tablet Take 1 tablet by mouth daily at bedtime. oxyCODONE-acetaminophen (PERCOCET) 5-325 mg tablet Take 1 tablet by mouth twice daily as needed for pain for up to 14 days. iv contrast (will be provided with radiology test) MRI shoulder RT Inject, intravenously, once for 1 dose. No IV access, insert saline lock prior to the beginning of sedation, infusion, injection of imaging exam. Discontinue saline lock post exam. If Pt. has a central line or IVAD, may access for administration according to line specific nursing protocol. Once exam is complete flush line and de-access according to line specific nursing protocol in the MR contrast administration guidelines link. nicotine (NICODERM) 21 mg/24 hr Apply 1 Patch as directed every 24 hours. (Patient not taking: Reported on 02/08/2023) nicotine polacrilex (NICORETTE) 4 mg gum Take 1 Each by mouth as needed (urge to smoke). No more than 24 per day (Patient not taking: Reported on 02/08/2023) No current facility-administered medications for this visit. ALLERGIES Allergen Reactions Pamprin Multi-Sympt* Rash, Itching, Shortness of Breath Severe itching all over body, slight rash, hyper ventilating, lips swelled badly Buspar [Buspirone] Mental Status Change Caused suicidal thoughts Codeine Hives, Itching Lamotrigine Hives Nitrofurantoin Macr* Unknown Promethazine-Phenyl* Intolerance Make her feel like passing out ACTIVE PROBLEM LIST Insomnia - 01/26/2017 Hepatitis C Virus Infection Without Hepatic Coma - 06/15/2016 Add (Attention Deficit Hyperactivity Disorder, Inattentive Type) - 09/19/2013 Depression Anxiety Chronic Pain - 05/29/2010 Comment: Pt to have f/u with [facility] 06/01/10. No further NARCS per PCP. Diarrhea Allergic Rhinitis, Cause Unspecified - 04/05/2006 Social History Tobacco Use Smoking status: Every Day Packs/day: 1.00 Years: 14.00 Additional pack years: 0.00 Total pack years: 14.00 Types: Cigarettes Smokeless tobacco: Never Vaping Use Vaping Use: Never used Substance Use Topics Alcohol use: No Drug use: No Review of Systems Musculoskeletal: Positive for arthralgias and myalgias. OBJECTIVE BP 102/80 Pulse 103 Wt 128 lb (58.1kg) SpO2 99% LMP 05/07/2009 Physical Exam Vitals and nursing note reviewed. Constitutional: General: She is awake. She is not in acute distress. Appearance: Normal appearance. She is well-developed and well-groomed. She is not ill-appearing, toxic-appearing or diaphoretic. HENT: Head: Normocephalic. Right Ear: External ear normal. Left Ear: External ear normal. Nose: Nose normal. Eyes: General: Vision grossly intact. Conjunctiva/sclera: Conjunctivae normal. Pupils: Pupils are equal, round, and reactive to light. Neck: Vascular: No JVD. Trachea: Trachea normal. Cardiovascular: Pulses: Normal pulses. Pulmonary: Effort: Pulmonary effort is normal. No accessory muscle usage, prolonged expiration or respiratory distress. Breath sounds: Normal breath sounds. Musculoskeletal: Right shoulder: Tenderness and bony tenderness present. No swelling, deformity, effusion, laceration or crepitus. Decreased range of motion. Decreased strength. Normal pulse. Cervical back: Neck supple. Comments: Right shoulder with tenderness to shoulder over lateral bursa and anteriorly extending in to axillary region Skin: General: Skin is warm and dry. Capillary Refill: Capillary refill takes less than 2 seconds. Neurological: General: No focal deficit present. Mental Status: She is alert and oriented to person, place, and time. Mental status is at baseline. Psychiatric: Attention and Perception: Attention and perception normal. Mood and Affect: Mood and affect normal. Speech: Speech normal. Behavior: Behavior normal. Behavior is cooperative. Thought Content: Thought content normal. Cognition and Memory: Cognition and memory normal. Judgment: Judgment normal. ASSESSMENT/PLAN: 1. Tear of right glenoid labrum, subsequent encounter - ICD9: V58.89, 840.8, ICD10: S43.431D (primary diagnosis) Persistent pain of the shoulder, she has had a non-contrast MRI of the area of concern that showed the labral tear, it has been recommended she have a contrast MRI to better define the extent of the injury given her persistent pain. In the mean time we can refer to pain management to help control pain. Will give short term Percocet script. She has already done other conservative therapies such as PT, steroids, muscle relaxer, NSAIDs. She is aware that since her [employer] comp case has been closed that the testing and visit for today may not be covered by [facility] and that there is also a possibility the costs may not be covered by her other insurances. - OXYCODONE-ACETAMINOPHEN 5 MG-325 MG TABLET - CONSULT TO PAIN MGT - MRI SHOULDER WO/W IVCON RIGHT - IV CONTRAST (RADIOLOGY PROCEDURE) 2. Chronic right shoulder pain - ICD9: 719.41, 338.29, ICD10: M25.511, G89.29 See above. - OXYCODONE-ACETAMINOPHEN 5 MG-325 MG TABLET - CONSULT TO PAIN MGT - MRI SHOULDER WO/W IVCON RIGHT - IV CONTRAST (RADIOLOGY PROCEDURE) PDMP website checked and validated. All prescriptions have been APPROPRIATELY filled. No suspicious activity was identified. 02/08/2023 by Sam Khan APRN.CNP Portions of this note have been entered by ancillary staff. I have reviewed and when necessary edited, so that they are an adequate record of my encounter with this patient Please note that parts of this document were created using voice recognition software and therefore may contain grammatical errors. Patient verbalizes understanding of instructions from today's visit and in agreement with treatment plan. Questions answered. Agrees to call the office if questions, concerns of issues with acute symptoms not improving or if they worsen. See diagnoses and orders for additional plan(s). Allergies and medications were reviewed, list was updated, and refills given if needed. Past medical, surgical, social, and family history reviewed and updated as appropriate. Encouraged proper diet & exercise as well as compliance with taking medications. Age-appropriate health preventative measures were discussed.. Return if symptoms worsen or fail to improve, for Keep next scheduled appointment.. Sam Khan APRN-DISABILITY MANAGER documented in this encounter [facility] 01-25-2023 Hospital Discharge instructions Patient Education 01/25/2023 13:11:26 ED Pain Management (05/2018)(CUSTOM) WELCOME Pain Management in our Emergency/Acute Care Facility Our staff understands that pain relief is important when someone is hurt or needs emergency care. However, providing ongoing pain relief is often complex. We recommend this be done through your primary health care provider such as your family doctor or painter ordnance. Because mistakes or misuses of pain medication can cause serious health problems and even , it is important that you provide accurate information about all medication you are taking. Our emergency/acute care facility will only provide pain relief options that are safe and appropriate. For your safety, we follow these guidelines when managing chronic pain: We are trained to look for and treat an emergency or urgent condition. We use our best judgment when treating pain, and follow all legal and ethical guidelines. We typically do not prescribe narcotic pain medicine for chronic pain if you have already received narcotic pain medication from another health care provider or emergency or acute care facility. We may contact your primary care provide to discuss your care. Typically, we will not prescribe narcotic pain medicine if we cannot talk directly with your primary care provider, we will provide you with a list of those providers in our area. We may provide only enough pain medication to last until you can contact your primary care provider. We will prescribe pain medication with a lower risk of addiction and overdose whenever possible. We will ask you to show a valid photo ID (like a cdl a driver's license) when you check into the emergency/acute care facility or before receiving a prescription for narcotic pain medication. If you do not have a photo ID, we may take your picture for the medical record. We may ask you to give a urine sample before prescribing narcotic pain medication. Health care laws, including HIPAA, allow us to request your medical record and share information with other health care providers who are treating you. Before prescribing a narcotic or other controlled substance, we check the [place] Automated Rx Reporting system (OARRS) or a similar database that tracks your narcotic and other controlled substance prescriptions. For your safety, we do not: Routinely give narcotic pain medication injections (shots or IV) for flare-ups of chronic pain; Refill stolen or lost prescriptions for narcotics or controlled substances; Provide missing Subutex, Suboxone, or Methadone doses; or, Prescribe long-acting or controlled-release pain medication such as OxyContin, MS Contin, Duragesics, Methadone, Exalgo, and Opana ER. Frequent users of the emergency/acute care facility may have care plans developed to assist in improving their care. The plans may include avoiding medicines likely to be abused or addictive. If you need help with substance abuse or addiction, please call the toll-free number for confidential referral to treatment between the hours of 8:00 AM and 5:00 PM Tuesday through Tuesday: or call the [facility] at [phone]. It is against the law to attempt to obtain controlled substance pain medicines by deceiving the health care provider caring for you. This can include getting multiple prescriptions from more than one provider or using someone else s name to obtain a prescription. Follow Up Care 01/25/2023 12:52:00 With:Keep your appointment on 02/01 with your orthopedic surgeon Address: When:2-4 days With:MAILE NORMAN MD Address: [address] [place] [address]- When:2-4 days [facility] 01-25-2023 Note Discharge Instructions Thank you for allowing [facility] to assist you with your healthcare needs. The following is important discharge information regarding your hospital visit. Diagnosis from Today's Visit Labral tear of shoulder Medication treatment Shoulder pain-injury What to Do Next Instructions from Your Care Team No qualifying data available. Post Acute Orders No qualifying data available. You Need to Schedule the Following Appointments Follow Up with Keep your appointment on 02/01 with your orthopedic surgeon When Within 2-4 days Where: Follow Up with MAILE NORMAN MD When Within 2-4 days Where: [address] [place] [address]- Allergies LaMICtal Pamprin Maximum Pain codeine Medications Please ask your primary doctor or pharmacist before taking any other medication not listed, including over the counter drugs, herbal medications, vitamins and or supplements as they may interact with your home medications. 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 Bring all medications you take, including over the counter medications, herbals and other supplements with you to your doctor s visit. Patients and families are reminded to discard old lists and to update any records with all medication providers or retail pharmacies. Medication Leaflets cyclobenzaprine (norma peralesmyla POONAM holley) Amrix, Comfort Pac with Cyclobenzaprine, Fexmid What is the most important information I should know about cyclobenzaprine? You should not use cyclobenzaprine if you have a thyroid disorder, heart block, congestive heart failure, a heart rhythm disorder, or you have recently had a heart attack. Do not use cyclobenzaprine if you have taken an MAO inhibitor in the past 14 days, such as isocarboxazid, linezolid, phenelzine, rasagiline, selegiline, or tranylcypromine. What is cyclobenzaprine? Cyclobenzaprine is a muscle relaxant. It works by blocking nerve impulses (or pain sensations) that are sent to your brain. Cyclobenzaprine is used together with rest and physical therapy to relieve muscle spasms caused by painful conditions such as an injury. Cyclobenzaprine may also be used for purposes not listed in this medication guide. What should I discuss with my healthcare provider before taking cyclobenzaprine? You should not use cyclobenzaprine if you are allergic to it, or if you have: a thyroid disorder; heart block, heart rhythm disorder, congestive heart failure; or if you have recently had a heart attack. Cyclobenzaprine is not approved for use by anyone younger than 15 years old. Do not use cyclobenzaprine if you have taken an MAO inhibitor in the past 14 days. A dangerous drug interaction could occur. MAO inhibitors include isocarboxazid, linezolid, phenelzine, rasagiline, selegiline, and tranylcypromine. Some medicines can interact with cyclobenzaprine and cause a serious condition called serotonin syndrome. Be sure your doctor knows if you also take stimulant medicine, opioid medicine, herbal products, or medicine for depression, mental illness, Parkinson's disease, migraine headaches, serious infections, or prevention of nausea and vomiting. Ask your doctor before making any changes in how or when you take your medications. Tell your doctor if you have ever had: liver disease; glaucoma; enlarged prostate; or problems with urination. It is not known whether this medicine will harm an unborn baby. Tell your doctor if you are or plan to become . It may not be safe to breast-feed while using this medicine. Ask your doctor about any risk. Older adults may be more sensitive to the effects of this medicine. How should I take cyclobenzaprine? Follow all directions on your prescription label and read all medication guides or instruction sheets. Your doctor may occasionally change your dose. Use the medicine exactly as directed. Cyclobenzaprine is usually taken once daily for only 2 or 3 weeks. Follow your doctor's dosing instructions very carefully. Swallow the capsule whole and do not crush, chew, break, or open it. Take the medicine at the same time each day. Call your doctor if your symptoms do not improve after 3 weeks, or if they get worse. Store at room temperature away from moisture, heat, and light. What happens if I miss a dose? Take the medicine as soon as you can, but skip the missed dose if it is almost time for your next dose. Do not take two doses at one time. What happens if I overdose? Seek emergency medical attention or call the Poison Help line at . An overdose of cyclobenzaprine can be fatal. Overdose symptoms may include severe drowsiness, vomiting, fast heartbeats, tremors, agitation, or hallucinations. What should I avoid while taking cyclobenzaprine? Avoid driving or hazardous activity until you know how this medicine will affect you. Your reactions could be impaired. Avoid drinking alcohol. Dangerous side effects could occur. What are the possible side effects of cyclobenzaprine? Get emergency medical help if you have signs of an allergic reaction: hives; difficult breathing; swelling of your face, lips, tongue, or throat. Stop using cyclobenzaprine and call your doctor at once if you have: fast or irregular heartbeats; chest pain or pressure, pain spreading to your jaw or shoulder; or sudden numbness or weakness (especially on one side of the body), slurred speech, balance problems. Seek medical attention right away if you have symptoms of serotonin syndrome, such as: agitation, hallucinations, fever, sweating, shivering, fast heart rate, muscle stiffness, twitching, loss of coordination, nausea, vomiting, or diarrhea. Serious side effects may be more likely in older adults. Common side effects may include: drowsiness, tiredness; headache, dizziness; dry mouth; or upset stomach, nausea, constipation. This is not a complete list of side effects and others may occur. Call your doctor for medical advice about side effects. You may report side effects to FDA at 2-959-JXN-3877. What other drugs will affect cyclobenzaprine? Using cyclobenzaprine with other drugs that make you drowsy can worsen this effect. Ask your doctor before using opioid medication, a sleeping pill, a muscle relaxer, or medicine for anxiety or seizures. Tell your doctor about all your other medicines, especially: bupropion (Zyban, for smoking cessation); meperidine; tramadol; verapamil; cold or allergy medicine that contains an antihistamine (Benadryl and others); medicine to treat Parkinson's disease; medicine to treat excess stomach acid, stomach ulcer, motion sickness, or irritable bowel syndrome; medicine to treat overactive bladder; or bronchodilator asthma medication. This list is not complete. Other drugs may affect cyclobenzaprine, including prescription and [id number] medicines, vitamins, and herbal products. Not all possible drug interactions are listed here. Where can I get more information? Your pharmacist can provide more information about cyclobenzaprine. Remember, keep this and all other medicines out of the reach of children, never share your medicines with others, and use this medication only for the indication prescribed. Every effort has been made to ensure that the information provided by [employer]. ('[employer]') is accurate, up-to-date, and complete, but no guarantee is made to that effect. Drug information contained herein may be time sensitive. [employer] information has been compiled for use by healthcare practitioners and consumers in the [place] and therefore [employer] does not warrant that uses outside of the [place] are appropriate, unless specifically indicated otherwise. [employer] drug information does not endorse drugs, diagnose patients or recommend therapy. [employer] drug information is an informational resource designed to assist licensed healthcare practitioners in caring for their patients and/or to serve consumers viewing this service as a supplement to, and not a substitute for, the expertise, skill, knowledge and judgment of healthcare practitioners. The absence of a warning for a given drug or drug combination in no way should be construed to indicate that the drug or drug combination is safe, effective or appropriate for any given patient. [employer] does not assume any responsibility for any aspect of healthcare administered with the aid of information [employer] provides. The information contained herein is not intended to cover all possible uses, directions, precautions, warnings, drug interactions, allergic reactions, or adverse effects. If you have questions about the drugs you are taking, check with your doctor, nurse or pharmacist. Copyright 9943-9895 [employer]. Version: 5.01. Revision Date: 03/22/2018. acetaminophen and oxycodone (a SEET a MIN oh fen and OX i KOE done) Endocet 10/325, Endocet 2.5/325, Endocet 5/325, Endocet 7.5/325, Nalocet, Percocet, Primlev What is the most important information I should know about acetaminophen and oxycodone? MISUSE OF OPIOID MEDICINE CAN CAUSE ADDICTION, OVERDOSE, OR . Keep the medication in a place where others cannot get to it. Taking opioid medicine during may cause life-threatening withdrawal symptoms in the . Fatal side effects can occur if you use opioid medicine with alcohol, or with other drugs that cause drowsiness or slow your breathing. Stop taking this medicine and call your doctor right away if you have skin redness or a rash that spreads and causes blistering and peeling. What is acetaminophen and oxycodone? Acetaminophen and oxycodone is a combination medicine used to relieve moderate to severe pain. Acetaminophen and oxycodone contains an opioide medicine and may be habit-forming. Acetaminophen and oxycodone may also be used for purposes not listed in this medication guide. What should I discuss with my healthcare provider before taking acetaminophen and oxycodone? You should not use this medicine if you are allergic to acetaminophen or oxycodone, or if you have: severe asthma or breathing problems; or a blockage in your stomach or intestines. Tell your doctor if you have ever had: breathing problems, sleep apnea; liver disease; a drug or alcohol addiction; kidney disease; a head injury or seizures; urination problems; or problems with your thyroid, pancreas, or gallbladder. If you use opioid medicine while you are , your baby could become dependent on the drug. This can cause life-threatening withdrawal symptoms in the baby after it is born. Babies born dependent on opioids may need medical treatment for several weeks. Ask a doctor before using opioid medicine if you are . Tell your doctor if you notice severe drowsiness or slow breathing in the nursing baby. How should I take acetaminophen and oxycodone? Follow all directions on your prescription label. Never take this medicine in larger amounts, or for longer than prescribed. An overdose can damage your liver or cause . Tell your doctor if you feel an increased urge to use more of this medicine. Never share opioid medicine with another person, especially someone with a history of drug abuse or addiction. MISUSE CAN CAUSE ADDICTION, OVERDOSE, OR . Keep the medicine in a place where others cannot get to it. Selling or giving away opioid medicine is against the law. Measure liquid medicine carefully. Use the dosing syringe provided, or use a medicine dose-measuring device (not a kitchen spoon). If you need surgery or medical tests, tell the doctor ahead of time that you are using this medicine. You should not stop using this medicine suddenly. Follow your doctor's instructions about tapering your dose. Store at room temperature away from moisture and heat. Keep track of your medicine. You should be aware if anyone is using it improperly or without a prescription. Do not keep leftover opioid medication. Just one dose can cause in someone using this medicine accidentally or improperly. Ask your pharmacist where to locate a drug take-back disposal program. If there is no take-back program, flush the unused medicine down the toilet. What happens if I miss a dose? Since this medicine is used for pain, you are not likely to miss a dose. Skip any missed dose if it is almost time for your next dose. Do not use two doses at one time. What happens if I overdose? Seek emergency medical attention or call the Poison Help line at . An overdose of this medicine can be fatal, especially in a child or other person using the medicine without a prescription. Overdose symptoms may include nausea, vomiting, sweating, severe drowsiness, pinpoint pupils, slow breathing, or no breathing. Your doctor may recommend you get naloxone (a medicine to reverse an opioid overdose) and keep it with you at all times. A person caring for you can give the naloxone if you stop breathing or don't wake up. Your caregiver must still get emergency medical help and may need to perform CPR (cardiopulmonary resuscitation) on you while waiting for help to arrive. Anyone can buy naloxone from a pharmacy or local health department. Make sure any person caring for you knows where you keep naloxone and how to use it. What should I avoid while taking acetaminophen and oxycodone? Avoid driving or operating machinery until you know how this medicine will affect you. Dizziness or drowsiness can cause falls, accidents, or severe injuries. Do not drink alcohol. Dangerous side effects or could occur. Ask a doctor or pharmacist before using any other medicine that may contain acetaminophen (sometimes abbreviated as APAP). Taking certain medications together can lead to a fatal overdose. What are the possible side effects of acetaminophen and oxycodone? Get emergency medical help if you have signs of an allergic reaction: hives; difficulty breathing; swelling of your face, lips, tongue, or throat. Opioid medicine can slow or stop your breathing, and may occur. A person caring for you should give naloxone and/or seek emergency medical attention if you have slow breathing with long pauses, blue colored lips, or if you are hard to wake up. In rare cases, acetaminophen may cause a severe skin reaction that can be fatal. This could occur even if you have taken acetaminophen in the past and had no reaction. Stop taking this medicine and call your doctor right away if you have skin redness or a rash that spreads and causes blistering and peeling. Call your doctor at once if you have: noisy breathing, sighing, shallow breathing, breathing that stops; a light-headed feeling, like you might pass out; weakness, tiredness, fever, unusual bruising or bleeding; confusion, unusual thoughts or behavior; problems with urination; liver problems--nausea, upper stomach pain, tiredness, loss of appetite, dark urine, esteban-colored stools, jaundice (yellowing of the skin or eyes); low cortisol levels-- nausea, vomiting, loss of appetite, dizziness, worsening tiredness or weakness; or high levels of serotonin in the body--agitation, hallucinations, fever, sweating, shivering, fast heart rate, muscle stiffness, twitching, loss of coordination, nausea, vomiting, diarrhea. Serious breathing problems may be more likely in older adults and in those who are debilitated or have wasting syndrome or chronic breathing disorders. Common side effects include: dizziness, drowsiness, feeling tired; feelings of extreme happiness or sadness; nausea, vomiting, stomach pain; constipation; or headache. This is not a complete list of side effects and others may occur. Call your doctor for medical advice about side effects. You may report side effects to FDA at 8-176-YCX-8091. What other drugs will affect acetaminophen and oxycodone? You may have breathing problems or withdrawal symptoms if you start or stop taking certain other medicines. Tell your doctor if you also use an antibiotic, antifungal medication, heart or blood pressure medication, seizure medication, or medicine to treat HIV or hepatitis C. Opioid medication can interact with many other drugs and cause dangerous side effects or . Be sure your doctor knows if you also use: cold or allergy medicines, bronchodilator asthma/COPD medication, or a diuretic ('water pill'); medicines for motion sickness, irritable bowel syndrome, or overactive bladder; other opioids--opioid pain medicine or prescription cough medicine; a sedative like Valium--diazepam, alprazolam, lorazepam, Xanax, Klonopin, Versed, and others; drugs that make you sleepy or slow your breathing--a sleeping pill, muscle relaxer, medicine to treat mood disorders or mental illness; drugs that affect serotonin levels in your body--a stimulant, or medicine for depression, Parkinson's disease, migraine headaches, serious infections, or nausea and vomiting. This list is not complete. Other drugs may affect acetaminophen and oxycodone, including prescription and [id number]-[id number] medicines, vitamins, and herbal products. Not all possible interactions are listed here. Where can I get more information? Your doctor or pharmacist can provide more information about acetaminophen and oxycodone. Remember, keep this and all other medicines out of the reach of children, never share your medicines with others, and use this medication only for the indication prescribed. Every effort has been made to ensure that the information provided by [employer] ('[employer]') is accurate, up-to-date, and complete, but no guarantee is made to that effect. Drug information contained herein may be time sensitive. [employer] information has been compiled for use by healthcare practitioners and consumers in the [place] and therefore [employer] does not warrant that uses outside of the [place] are appropriate, unless specifically indicated otherwise. [employer] drug information does not endorse drugs, diagnose patients or recommend therapy. [employer] drug information is an informational resource designed to assist licensed healthcare practitioners in caring for their patients and/or to serve consumers viewing this service as a supplement to, and not a substitute for, the expertise, skill, knowledge and judgment of healthcare practitioners. The absence of a warning for a given drug or drug combination in no way should be construed to indicate that the drug or drug combination is safe, effective or appropriate for any given patient. [employer] [facility] does not assume any responsibility for any aspect of healthcare administered with the aid of information [employer] provides. The information contained herein is not intended to cover all possible uses, directions, precautions, warnings, drug interactions, allergic reactions, or adverse effects. If you have questions about the drugs you are taking, check with your doctor, nurse or pharmacist. Copyright 5888-4228 [employer]. Version: .. Revision Date: 08/01/2020. Education Materials [facility] Management in our Emergency/Acute Care Facility Our staff understands that pain relief is important when someone is hurt or needs emergency care. However, providing ongoing pain relief is often complex. We recommend this be done through your primary health care provider such as your family doctor or [employer]. Because mistakes or misuses of pain medication can cause serious health problems and even , it is important that you provide accurate information about all medication you are taking. Our emergency/acute care facility will only provide pain relief options that are safe and appropriate. For your safety, we follow these guidelines when managing chronic pain: We are trained to look for and treat an emergency or urgent condition. We use our best judgment when treating pain, and follow all legal and ethical guidelines. We typically do not prescribe narcotic pain medicine for chronic pain if you have already received narcotic pain medication from another health care provider or emergency or acute care facility. We may contact your primary care provide to discuss your care. Typically, we will not prescribe narcotic pain medicine if we cannot talk directly with your primary care provider, we will provide you with a list of those providers in our area. We may provide only enough pain medication to last until you can contact your primary care provider. We will prescribe pain medication with a lower risk of addiction and overdose whenever possible. We will ask you to show a valid photo ID (like a cdl a driver's license) when you check into the emergency/acute care facility or before receiving a prescription for narcotic pain medication. If you do not have a photo ID, we may take your picture for the medical record. We may ask you to give a urine sample before prescribing narcotic pain medication. Health care laws, including HIPAA, allow us to request your medical record and share information with other health care providers who are treating you. Before prescribing a narcotic or other controlled substance, we check the [place] Automated Rx Reporting system (OARRS) or a similar database that tracks your narcotic and other controlled substance prescriptions. For your safety, we do not: Routinely give narcotic pain medication injections (shots or IV) for flare-ups of chronic pain; Refill stolen or lost prescriptions for narcotics or controlled substances; Provide missing Subutex, Suboxone, or Methadone doses; or, Prescribe long-acting or controlled-release pain medication such as OxyContin, MS Contin, Duragesics, Methadone, Exalgo, and Opana ER. Frequent users of the emergency/acute care facility may have care plans developed to assist in improving their care. The plans may include avoiding medicines likely to be abused or addictive. If you need help with substance abuse or addiction, please call the toll-free number for confidential referral to treatment between the hours of 8:00 AM and 5:00 PM Tuesday through Tuesday: or call the Crisis Intervention Center [facility] at [phone]. It is against the law to attempt to obtain controlled substance pain medicines by deceiving the health care provider caring for you. This can include getting multiple prescriptions from more than one provider or using someone else s name to obtain a prescription. Additional Information VACCINATE! IT SAVES LIVES! Members of the community who have not yet received the COVID-19 vaccine and would like to receive it can visit one of [facility] vaccine clinics. There are many vaccine clinic locations within the [facility]. For locations and available times, please visit [email or web address].[email or web address]/. It is important to note that some COVID mobile vaccine clinics are held outdoors and may be canceled in rainy or stormy conditions. To learn more about pediatric vaccinations (ages 5-11), we invite you to visit the [facility] webpage. [email or web address]/[email or web address]-[email or web address]-Frequently-[email or web address] -Questions.html To learn more about the COVID-19 vaccine, we invite you to visit the CDC website for a list of frequently asked questions. https://www.cdc.gov/coronavirus/2019-n cov/vaccines/faq.html [facility] Patient Portal Access Instructions: Stay connected with your healthcare team and access your personal medical information anytime with the [facility] Patient Portal. If you would like a full copy of your medical records please contact the [facility] Medical Records Department Tuesday through Tuesday between 8a.m. and 4:30p.m. Please follow the directions below to access the portal: 1.Access the email account you provided upon registration to the [facility].2.Look for an invitation email from [facility].3.Open the email and access the invitation link: Accept Invitation to [facility]4.Fill in the required moore to create your account. Sign into [email or web address] with your username and password that you created in the above steps to stay up to date. You can then view a summary of results, a summary of your visits, and the ability to download your summaries to your computer or send the information securely to a physician. Remember that your healthcare information is confidential, so carefully consider who you will allow to register on the [facility] Patient Portal for access to your information. You can also access the [facility] Patient Portal on the myTips lala. Simply click on Health Records under Health Data and then click on the [employer] logo. HOW TO SAFELY DISPOSE OF PRESCRIPTION MEDICATIONS Please use one of the following methods to safely dispose of your unused medications. 1.Use a drug disposal kit: the drug disposal pouch allows you to safely discard your old and unused drugs. Ask your nurse to give you one when you are discharged.2.Visit a local take-back location: Many local pharmacies and police departments have programs that collect old and unwanted prescription drugs. Call your local pharmacy or go to http://bit.CareinSync/2Y9Zc1u to find one close to you.3.Make use of household items: Use cat litter or old coffee grounds to dispose medications if other options are not available. Mix your drugs with these household products, seal them in an airtight container and throw it into the garbage. Call [facility]: [phone] to be sure your drugs can be disposed of in this way. Some medicines may require a different approach.4.Never flush your medications down the toilet. IF YOU HAVE BEEN PRESCRIBED AN OPIOIDS FOR PAIN If you have been prescribed an opioid (such as hydrocodone, oxycodone or morphine), it is critical to understand the possible side effects and risks of opioid pain medications. Even when taken as directed, opioids can have several side effects including: Tolerance, meaning you might need to take more of a medication for the same pain relief. Nausea, vomiting and/or constipation. Sleepiness, dizziness, dry mouth, confusion, depression or itching. Physical dependence, meaning you have withdrawal symptoms when a medication is stopped ? this can develop within a few days. KNOW YOUR RESPONSIBILITIES It is important to know exactly how much and how often to take the opioid pain medications you are prescribed. Never take opioids in higher amounts or more often than prescribed. Do not combine opioids with alcohol or other drugs that cause drowsiness, such as benzodiazepines, also known as benzos, including diazepam and alprazolam, muscle relaxants or sleep aids. Never sell or share prescription opioids. This is illegal. Store opioids in a secure place and out of reach of others (including children, family, friends and visitors). The last page(s) of this document has been signed and retained as a CHART COPY Signatures Patient Education Materials ED Pain Management (05/2018)(CUSTOM) Medication Leaflets cyclobenzaprine, acetaminophen and oxycodone My discharge plan and instructions have been reviewed and explained to me and I,PAT KNIGHT understand my current condition and have read and understand these discharge instructions. I have received a written copy of the plan/instructions. If I have questions, I am aware that I should contact my doctor. 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 Pt called in had a missed call, asked if providers office had called her. Let Pt know that I could not find anywhere that someone had tried to contact her as of yet, but her message had been put through to provider. Patient calls at the suggestion of 180 to request a refill of xanax for increased anxiety/panic attacks. Nurse triage completed. Protocol recommends see provider within 24 hours. Patient asking for 7 day refill of xanax or appointment today with Dr. Norman or Sam. No available appointments. Pended prescription for review. Last OV: 12/01/2022 Reason for Disposition Patient sounds very upset or troubled to the triager Answer Assessment - Initial Assessment Questions 1. CONCERN: Increasing anxiety. Going through a divorce. Has another open court case. She has has an emergency protection order against her . Patient was at 180 today and completed the intake process. Patient will start next week with a counselor and group therapy. Patient reports that she is having extreme anxiety and 180 directed her to PCP for medication until she meets with counselor next week. Patient wants to have xanax on hand just in case. August prescription of 7 pills lasted her until last week. 2. ANXIETY SYMPTOMS: Overwhelmed, tense, can't go on. 3. ONSET: Last when filed for divorce. 4. SEVERITY: 10 when patient is ramped up but has breathing techniques and calming exercises that she knows she has to do and knows she has to keep calm. 5. FUNCTIONAL IMPAIRMENT: Affecting daily interactions. 6. HISTORY: Patient has anxiety, depression, PTSD. Medication. Counseling. 7. RISK OF HARM - SUICIDAL IDEATION: No thoughts of self harm. No plan. Patient reports she has the numbers to call if needs help and if gets bad enough knows to go to ED. 8. TREATMENT: Patient currently on trazodone. Relaxation strategies. 9. TREATMENT - THERAPIST: 180. First sessions next week with counselor and group therapy. Not certain of the name. Intake completed today. 10. POTENTIAL TRIGGERS: Caffeine. No recent medications. Denies alcohol or drugs. 10. PATIENT SUPPORT: Currently by self. Daughters that are supportive. 11. OTHER SYMPTOMS: Feeling depressed, trouble concentrating, and trouble sleeping. No trouble breathing, palpitations or fast heartbeat, chest pain, sweating, nausea, or diarrhea currently. When has increased episodes does have palpitations and racing heart. Protocols used: Anxiety and Panic [id number] documented in this encounter [facility] 01-10-2023 History of Present illness Narrative This note was created using HitchedPic. Subjective Pat Knight is a 42 year old female. Patient presents with: Established Patient: Discuss medication and panic attacks SUBJECTIVE: Pat Knight is a 42 year old year old lady here today for follow up appointment for review of medical conditions. 180--going to do counseling and see their doctor. Will start next week there. Wants to get a better life Needs help with panic attacks. Overwhelmed. No SI or HI. Last 7 pills helped last till now. Increased stressors Shoulder pain and issues with . Signed up for counseling. Not sleeping well. Goals to work with counseling. PAST MEDICAL HISTORY Diagnosis Date Abdominal pain, unspecified site Abnormal glandular Papanicolaou smear of cervix 04/08/2006 Abn. Pap smear (cervix) Allergic rhinitis, cause unspecified 04/05/2006 Anxiety Congestive heart failure (HCC) Depression Diarrhea Hypertension Irritable bowel syndrome Mental disorders complicating , childbirth, or the puerperium DEPRESSION Migraine, unspecified, with intractable migraine, so stated, without mention of status migrainosus Other and unspecified ovarian cyst PMH - PAST MEDICAL HISTORY OF Narcotic dependence requiring rehab in 2006 Temporomandibular joint disorders, unspecified Current Outpatient Medications Medication Sig nicotine (NICODERM) 21 mg/24 hr Apply 1 Patch as directed every 24 hours. nicotine polacrilex (NICORETTE) 4 mg gum Take 1 Each by mouth as needed (urge to smoke). No more than 24 per day acetaminophen (TYLENOL) 325 mg tablet Take 650 mg by mouth every 6 hours as needed. traZODone (DESYREL) 100 mg tablet Take 1 tablet by mouth daily at bedtime. No current facility-administered medications for this visit. Review of Systems Objective BP 132/68 Pulse 109 Temp 36.8 C (98.3 F) Resp 18 Wt 59.9 kg (132 lb) LMP 05/07/2009 SpO2 98% BMI 21.97 kg/m Physical Exam Neurological: Mental Status: She is alert. Psychiatric: Attention and Perception: Attention and perception normal. Mood and Affect: Mood is anxious and depressed. Speech: Speech normal. Behavior: Behavior is cooperative. Thought Content: Thought content normal. Assessment and Plan Encounter Diagnosis ICD-10-CM 1. Panic attacks F41.0 ALPRAZolam (XANAX) 1 mg tablet Above issues addressed with patient. Patient involved in shared decision making for management of medical issues. History and medications reviewed. Epic updated as needed Refills and/or prescriptions taken care of and meds adjusted as indicated after reviewed history, exam and labs. Health Maintenance reviewed. Updated record and/or ordered tests as recorded. Encouraged on efforts at healthy diet and regular exercise and adequate sleep. Going for counseling to deal with stressors and triggers for bianca attacks. Working on controlling panic attacks. Helps to have Xanax on hand. Increased stressors lately. Prescription to last till sees provider who can help with medication management. No signs of diversion or abuse of medication(s); no adverse effects. Continue present management. Maile Norman MD documented in this encounter [facility] 12-07-[address] Mccloud should be able to access patients chart and referral. Patient telephoned to see if any issues with scheduling. Patient has not yet reached out to pain management. Will call this office back if we need to send anything further over to Dr. Mccloud's office. Maureen Arroyo LPN Order for pain management filed. Please fax as patient requests and let her know when completed. Gayla Ayala, RIGOBERTO.DISABILITY MANAGER Patient notified of results.Patient stated that pain management was recommended, please place consult order fo rpain management Patient is needing information for pain management- and their phone # [phone]. Phoned patient back and given phone # for . Yen Jo LPN Left message for patient to return call. Charles Garcia Ma ----- Message from Arnie Carrasco MD sent at 12/06/2022 12:35 PM EDT ----- Xray of her sacrum/coccyx is normal. Continue treatment as discussed in office. documented in this encounter [facility] 12-01-2022 History of Present illness Narrative Radiology Service Progress Note PATIENT NAME: Pat Knight DATE OF SERVICE: December 01, 2022 TIME: 2:00 PM PATIENT IDENTITY VERIFICATION COMPLETED USING TWO (2) IDENTIFIERS: Name and Date of confirmed by patient verbally. FALL SCREENING: Has the patient had 2 falls in the last year or 1 fall with injury or currently using an Ambulatory Assistive Device (Walker, Cane, Wheelchair, Crutches, etc.)? No PATIENT GENDER DATA: Female. status: : No status: NO. PATIENT RELEVANT IMPLANT DATA REVIEWED: Not Applicable RADIOLOGY DEPARTMENT: General X-ray: Exam(s) Completed: Spine X-Ray(s): Sacrum/Coccyx PERIPHERAL IV DATA: Not applicable SIGNED BY: RT Verónica(R) December 01, 2022 2:00 PM documented in this encounter [facility] 12-01-2022 History of Present illness Narrative 12/01/2022 Patient presents with: Acute Visit: Area to tailbone feels abnormal x1 month SUBJECTIVE: This is a 42 year old that is here today for Above Complaints. ONSET: years LOCATION: tailbone DURATION: getting worse CHARACTERISTICS: bone on tissue, aching AGGRAVATING FEATURES: worse when sitting ALLEVIATING FEATURES: ibuprofen 600 mg daily RADIATION: none No recent trauma but recalls when she was little she hurt it while sled riding but never had it examined Denies redness to area, swelling or drainage PAST MEDICAL HISTORY Diagnosis Date Abdominal pain, unspecified site Abnormal glandular Papanicolaou smear of cervix 04/08/2006 Abn. Pap smear (cervix) Allergic rhinitis, cause unspecified 04/05/2006 Anxiety Congestive heart failure (HCC) Depression Diarrhea Hypertension Irritable bowel syndrome Mental disorders complicating , childbirth, or the puerperium DEPRESSION Migraine, unspecified, with intractable migraine, so stated, without mention of status migrainosus Other and unspecified ovarian cyst PMH - PAST MEDICAL HISTORY OF Narcotic dependence requiring rehab in 2006 Temporomandibular joint disorders, unspecified ALLERGIES Pamprin Multi-Symptom [Burptwotuszoc-Izlswudd-Pstsvjs], Buspar [Buspirone], Codeine, Lamotrigine, Nitrofurantoin Macrocrystal, and Promethazine-Phenylephrine MEDICATIONS Current Outpatient Medications Medication Sig nicotine (NICODERM) 21 mg/24 hr Apply 1 Patch as directed every 24 hours. nicotine polacrilex (NICORETTE) 4 mg gum Take 1 Each by mouth as needed (urge to smoke). No more than 24 per day acetaminophen (TYLENOL) 325 mg tablet Take 650 mg by mouth every 6 hours as needed. traZODone (DESYREL) 100 mg tablet Take 1 tablet by mouth daily at bedtime. No current facility-administered medications for this visit. Medications and allergies reviewed by this provider. SOCIAL HISTORY Social History Tobacco Use Smoking status: Every Day Packs/day: 1.00 Years: 14.00 Pack years: 14.00 Types: Cigarettes Smokeless tobacco: Never Vaping Use Vaping Use: Never used Substance Use Topics Alcohol use: No Drug use: No REVIEW OF SYSTEMS All other reviewed and negative other than HPI. OBJECTIVE: BP 106/74 Pulse 82 Resp 18 Wt 56.8 kg (125 lb 3.2 oz) LMP 05/07/2009 SpO2 99% BMI 20.83 kg/m . Vital signs reviewed by this provider. APPEARANCE Well appearing, alert, in no acute distress, well-hydrated, well nourished. BACK: prominent coccyx. Mild TTP. No surrounding erythema, swelling or abscess formation COVID-19 VACCINE(1) Never done PNEUMOCOCCAL(1 - PCV) Never done HEPATITIS B(2 of 3 - Hep B Twinrix 3-dose series) due on 05/19/2016 MAMMOGRAM Never done PAP TESTING due on 09/28/2022 HPV TESTING due on 09/28/2022 INFLUENZA(Season Ended) due on 02/25/2023 DTAP,TDAP,TD(2 - Td or Tdap) due on 03/15/2032 HEPATITIS C SCREENING Completed HIV SCREENING Completed ASSESSMENT/PLAN: 1. Coccydynia - ICD9: 724.79, ICD10: M53.3 - no red flag symptoms or exam findings - red flag symptoms discussed, verbalizes understanding - may use OTC NSAID reliever, wedge pillow to sit on ice or heat - XR SACRUM/COCCYX 3V AP/LAT - follow-up pending xray Galya Ayala APRN.CNP Prescription instructions reviewed with patient as applicable. Patient advised if symptoms do not improve or if symptoms worsen sooner, to contact their primary care physician. Potential red flag symptoms discussed with the patient. Reviewed appropriate action plan to take if red flag symptoms occur. Patient agreeable to treatment plan. I spent a total of 25 minutes on the date of the service which included preparing to see the patient, [id number] patient care, completing clinical documentation, obtaining and/or reviewing separately obtained history, performing a medically appropriate examination, counseling and educating the patient/family/caregiver, and ordering medications, tests, or procedures. documented in this encounter [facility] 12-01-2022 Miscellaneous Notes Reviewed. Gayla Ayala APRN.CNP Pt calling to request appt with provider today if possible. -Reports soreness to her tailbone for several months, has been a chronic issue for her -states it feels abnormal, like a bunch of knots in area -sits for prolonged periods of time -just bought donut cushion to use -patient voices concern for area and would like it evaluated No appts available with PCP team or Int Med today. Pt agreeable to be seen by Gayla Ayala CNP today. Shanon Lowe RN documented in this encounter [facility] 09-17-2022 Miscellaneous Notes Patient notified of results and provider's instructions. Patient verbalizes understanding. Violeta Aguirre LPN Last seen by Karen Apr 2022. No follow up scheduled yet Last RX Xanax was 2020 for 7 pills. Will okay 7 pills but needs follow up if need to treat anxiety. Noted medical marijuana listed on her PDMP report and usually do not prescribe for routine use of Xanax while on that. Needs follow up as well in next month or two The following approved medication requests have been transmitted electronically. Requested Prescriptions Signed Prescriptions Disp Refills ALPRAZolam (XANAX) 1 mg tablet 7 tablet 0 Sig: Take 1 tablet by mouth once daily as needed (panic attacks) for up to 30 days. Authorizing Provider: MAILE NORMAN MD Patient calling, states that she is having a lot of personal things happening at once and her anxiety is really increasing. She has a good job and does not want to miss work but she has not been able to sleep. She would like PCP to call in a small amount of Xanax to get her through. States that she has been taking the trazodone but that is not helping with the panic feeling. Would like prescription sent to [facility]. Please advise. documented in this encounter [facility] 09-09-2022 History of Present illness Narrative Subjective Cough Associated symptoms include headaches, sore throat and myalgias. Pertinent negatives include no ear pain. Pat Knight is a 42 year old female who presents with 3 days of cough, congestion, headache, body aches, sore throat, feeling tired, some diarrhea. She is currently taking PCN for a dental infection. She has taken OTC medication at home for symptoms. Temperature at home has not gone over 100 degrees F. Review of Systems Constitutional: Positive for malaise/fatigue. Negative for fever. HENT: Positive for congestion and sore throat. Negative for ear pain. Respiratory: Positive for cough. Cardiovascular: Negative. Gastrointestinal: Positive for diarrhea. Negative for nausea and vomiting. Musculoskeletal: Positive for myalgias. Neurological: Positive for headaches. BP 110/78 Pulse 96 Temp 36.4 C (97.6 F) (Tympanic) Resp 16 Wt 58.2 kg (128 lb 3.2 oz) LMP 05/07/2009 SpO2 98% BMI 21.33 kg/m PAST MEDICAL HISTORY Diagnosis Date Abdominal pain, unspecified site Abnormal glandular Papanicolaou smear of cervix 04/08/2006 Abn. Pap smear (cervix) Allergic rhinitis, cause unspecified 04/05/2006 Anxiety Congestive heart failure (HCC) Depression Diarrhea Hypertension Irritable bowel syndrome Mental disorders complicating , childbirth, or the puerperium DEPRESSION Migraine, unspecified, with intractable migraine, so stated, without mention of status migrainosus Other and unspecified ovarian cyst PMH - PAST MEDICAL HISTORY OF Narcotic dependence requiring rehab in 2006 Temporomandibular joint disorders, unspecified PAST SURGICAL HISTORY Procedure Laterality Date ADENOIDECTOMY PRIMARY <AGE 14 Adenoidectomy COLPOSCOPY CERVIX UPPER/ADJACENT VAGINA Colposcopy DILATION & CURETTAGE DX&/THER NONOBSTETRIC 2000 Dilation & curettage,TAB ESOPHAGOGASTRODUODENOSCOPY TRANSORAL DIAGNOSTIC 11/01/11 EGD [facility] inpt H-pylori negative LIG/TRNSXJ FLP TUBE ABDL/VAG APPR UNI/BI 04/09/2006 Tubal ligation MYRINGOTOMY ASPIR&/EUSTACHIAN TUBE NFLTJ ANES 1994 Myringotomy/tubes OOPHORECTOMY PARTIAL/TOTAL UNI/BI left TONSILLECTOMY PRIMARY/SECONDARY <AGE 14 1987 Tonsillectomy ALLERGIES Pamprin Multi-Symptom [Ghtzoceklvrgz-Wzgqsssr-Theinhn], Buspar [Buspirone], Codeine, Lamotrigine, Nitrofurantoin Macrocrystal, and Promethazine-Phenylephrine MEDICATIONS nicotine (NICODERM) 21 mg/24 hr Apply 1 Patch as directed every 24 hours. nicotine polacrilex (NICORETTE) 4 mg gum Take 1 Each by mouth as needed (urge to smoke). No more than 24 per day acetaminophen (TYLENOL) 325 mg tablet Take 650 mg by mouth every 6 hours as needed. traZODone (DESYREL) 100 mg tablet Take 1 tablet by mouth daily at bedtime. FAMILY HISTORY Problem Relation Age of Onset Psychiatry Mother DEPRESSION Cervical Cancer Maternal Grandmother Hypertension Maternal Grandmother Cancer Maternal Grandfather BLADDER Heart Maternal Grandfather SC & EMPHYSEMA Social History Tobacco Use Smoking status: Every Day Packs/day: 1.00 Years: 14.00 Pack years: 14.00 Types: Cigarettes Smokeless tobacco: Never Vaping Use Vaping Use: Never used Substance Use Topics Alcohol use: No Drug use: No Objective Physical Exam Vitals and nursing note reviewed. Constitutional: General: She is not in acute distress. Appearance: She is ill-appearing. She is not toxic-appearing. HENT: Right Ear: Tympanic membrane, ear canal and external ear normal. Left Ear: Tympanic membrane, ear canal and external ear normal. Nose: Congestion present. Mouth/Throat: Mouth: Mucous membranes are moist. Pharynx: Oropharynx is clear. Uvula midline. Posterior oropharyngeal erythema (slight) present. No oropharyngeal exudate. Cardiovascular: Rate and Rhythm: Normal rate and regular rhythm. Heart sounds: Normal heart sounds. Pulmonary: Effort: Pulmonary effort is normal. No respiratory distress. Breath sounds: Normal breath sounds. No wheezing or rales. Musculoskeletal: Cervical back: Neck supple. Lymphadenopathy: Cervical: No cervical adenopathy. Skin: General: Skin is warm and dry. Findings: No erythema or rash. Neurological: Mental Status: She is alert. ASSESSMENT/PLAN: 1. Viral URI with cough - ICD9: 465.9, ICD10: J06.9 - Discussed viral etiology and rationale for treatment. - Symptomatic treatment with prn analgesia - Supportive care with fluids and rest - COVID WITH FLUA+B, ROUTINE - Follow-up with your PCP in 3-5 days if symptoms have not improved or sooner if symptoms worsen - Discussed red flags and need for immediate medical evaluation if any occur. - Discussed supportive care treatment with fluids, rest and analgesia. - Discussed expected course of illness Pennie Clemente APRN.LUIS DANIEL documented in this encounter [facility] 09-09-2022 Instructions Pennie Clemente APRN.CNP - 09/09/2022 10:46 AM EDT ASSESSMENT/PLAN: 1. Viral URI with cough - ICD9: 465.9, ICD10: J06.9 - Discussed viral etiology and rationale for treatment. - Symptomatic treatment with prn analgesia - Supportive care with fluids and rest - COVID WITH FLUA+B, ROUTINE - Follow-up with your PCP in 3-5 days if symptoms have not improved or sooner if symptoms worsen - Discussed red flags and need for immediate medical evaluation if any occur. - Discussed supportive care treatment with fluids, rest and analgesia. - Discussed expected course of illness Pennie Clemente APRN.DISABILITY MANAGER Beginning Home Isolation Isolation is used to separate people infected with SARS-CoV-2, the virus that causes COVID-19, from people who are not infected. People who are in isolation should stay home until it s safe for them to be around others. In the home, anyone sick or infected should separate themselves from others by staying in a specific sick room or area and using a separate bathroom (if available). Isolation or Quarantine: What's the difference? Quarantine keeps someone who might have been exposed to the virus away from others. Isolation keeps someone who is infected with the virus away from others, even in their home. Who needs to isolate People who have COVID-19 People who have symptoms of COVID-19 and are able to recover at home People who have no symptoms (are asymptomatic) but have tested positive for infection with SARS-CoV-2 Steps to take Stay home except to get medical care Monitor your symptoms. Stay in a separate room from other household members, if possible Use a separate bathroom, if possible Avoid contact with other members of the household and pets Don t share personal household items, like cups, towels, and utensils Wear a mask when around other people, if you are able to When to seek emergency medical attention Look for emergency warning signs* for COVID-19. If someone is showing any of these signs, seek emergency medical care immediately: Trouble breathing Persistent pain or pressure in the chest New confusion Inability to wake or stay awake Bluish lips or face *This list is not all possible symptoms. Please call your medical provider for any other symptoms that are severe or concerning to you. Call 911 or call ahead to your local emergency facility: Notify the dough machine operator that you are seeking care for someone who has or may have COVID-19. Ending Home Isolation - When you can be around others after you had or likely had COVID-19 When you can be around others after you had or likely had COVID-19 If You Test Positive for COVID-19 (Isolation) Everyone, regardless of vaccination status: Stay home for 5 days. Note: Day 0 is your first day of symptoms or the date of collection of a positive viral test if no symptoms. Day 1 is the first full day after symptoms developed or test specimen was collected. If you have no symptoms or your symptoms are resolving after 5 days, you can leave your house. Continue to wear a mask around others for 5 additional days. If you have a fever, continue to stay home until your fever resolves, even if it is longer than 5 days. If You Were Exposed to Someone with COVID-19 (Quarantine) If you: 1. Have been boosted OR 2. Completed the primary series of Pfizer or Moderna vaccine within the last 6 months OR 3. Completed the primary series of J&J vaccine within the last 2 months THEN: 1. Wear a mask around others for 10 days. 2. Test on day 5, if possible. If you develop symptoms get a test and stay home. If You Were Exposed to Someone with COVID-19 (Quarantine) If you: 1. Completed the primary series of Pfizer or Moderna vaccine over 6 months ago and are not boosted OR 2. Completed the primary series of J&J over 2 months ago and are not boosted OR 3. Are unvaccinated THEN: 1. Stay home for 5 days. After that continue to wear a mask around others for 5 additional days. 2. If you can't quarantine you must wear a mask for 10 days. 3. Test on day 5 if possible. If you develop symptoms get a test and stay home. I had COVID-19 or I tested positive for COVID-19 and I have a weakened immune system If you have a weakened immune system (immunocompromised) due to a health condition or medication, you might need to stay home and isolate longer than 10 days. Talk to your healthcare provider for more information. Your doctor may work with an infectious disease expert at your local health department to determine when you can be around others. How to Manage Common Symptoms Associated with COVID for Adults Fever- Fever is a temperature over 100.4 F and can occur when the body is fighting an infection. To help treat a fever: Drink plenty of fluids and stay well hydrated. Eat small amounts of easy to digest food. Rest. Your body needs rest to recover, but getting up and moving around the house frequently is a good idea. You should try to continue doing your normal daily activities (bathing, toileting, grooming, cooking), though you will probably feel tired, and need to rest often. Avoid any heavy activity or exercise, as this will increase your body temperature. Dress in light clothing and stay covered in a light sheet. Keep the room temperature cool. Take a slightly warm (not cold or cool) bath, or apply damp washcloths to the forehead and wrists. Cough- Cough is a common symptom associated with COVID and can be bothersome. To help treat a cough: Stay well hydrated. Try warm water or tea with lemon and/or honey to help soothe the cough. Use a humidifier to add moisture to the air. Try a product with menthol, like a cough drop or a rub for your chest such as Vicks, which can help reduce cough. Try cough drops. Avoid smoking and other strong odors or perfumes. Try breathing exercises to keep your lungs open and clear. Take a big deep breath through your nose and hold for 5 seconds before slowly releasing. Repeat frequently, while you are awake. Congestion- Runny nose or nasal congestion can occur with COVID. Treatment can help relieve symptoms: Try OTC nasal saline spray, or nasal saline rinse to relieve mucus congestion. Nasal strips can help keep nasal passages open, to increase airflow. Elevating your head with an extra pillow in bed can help reduce congestion. Using a humidifier can increase moisture in the air, and make breathing easier. Sore Throat- Another common symptom with COVID, can be managed at home by: Stay well hydrated. Gargle with salt water - mix teaspoon salt with 1 cup of warm water and gargle. This helps to loosen mucus in the back of the throat and may reduce discomfort. Try ice chips, popsicles or lozenges to soothe the throat. Nausea/Vomiting/Diarrhea- These are common symptoms, and staying hydrated is most important. If you are nauseous or vomiting, start with small sips of water every 10-15 minutes and increase as tolerated. You can try sucking an ice cube too. If tolerating, you can try pedialyte or Gatorade, or flat sprite or radha-elda. Start slowly and increase as you are able to. Instead of meals, try smaller, more frequent snacks. Try eating bland foods like crackers, toast, rice, and applesauce. Avoid spicy, greasy or fried foods and dairy containing foods. Even if you aren't feeling hungry due to lack of smell or taste, it is important to try to take in some food when you are able. After drinking and eating, rest in an upright position for up to two hours as needed to help decrease nauseous feelings. Try closing your eyes, avoid moving and watching TV. Avoid strong odors that can make you feel more nauseated. When to seek emergency medical attention Look for emergency warning signs for COVID-19. If having any of these symptoms, seek emergency medical care immediately: Trouble breathing Persistent pain or pressure in the chest New confusion Inability to wake or stay awake Bluish lips or face *This list is not all possible symptoms. Please call your medical provider for any other symptoms that are severe or concerning to you. documented in this encounter [facility] 09-08-2022 Miscellaneous Notes Noted. Maile Norman MD Patient calling asking for appt to be seen, she has headache, sore throat, diarrhea, ears hurt, coughing, runny nose, fatigued, said she feels awful. Patient said [facility] but has a line and did not want to wait. Aware PCP has no openings at this late hour of the day. 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 Advised to go back to [facility] for evaluation may need COVID and influenza testing done. Patient said she may go back a little later or first thing morning. documented in this encounter [facility] 08-11-2022 Miscellaneous Notes Pt already received message yesterday. Called and left a voicemail for the Patient to call back and ask for a nurse to receive the providers message. Otilia Douglas RN Patches usually for 6 to 8 weeks at 21 then 2 weeks or so on 14 then 2 weeks or so on 7, but can adjust taper as needed. Does not have to taper all the way down to 7 if able to completely stop after 21 or 14 patch. Pt called and is notified of providers message and instructions. Pt voices understanding. Pt asking if there is a regimen for when she is to start decreasing the dose on the patches, or is it when she feels comfortable. Please call and advise. Otilia Douglas RN Called and left a voicemail for the Patient to call back and ask for a nurse to receive the providers message. Otilia Douglas RN Not sure how soon after awakening needs to smoke, but suspect less than 30 minutes since smoker 1 and 1/2 PPD, so sent for 4mg gum. Most use 10 to 12 pieces of gum per day but max is 24. Can adjust number of pieces of gum per RX if needs more than 12 a day. Does she need more detailed instructions on how to use gum and patches to quit smoking? Make sure she knows to remove the patch if decides to smoke--ideally has no cigarettes available to smoke. The following approved medication requests have been transmitted electronically. Requested Prescriptions Signed Prescriptions Disp Refills nicotine (NICODERM) 21 mg/24 hr 28 Patch 1 Sig: Apply 1 Patch as directed every 24 hours. Authorizing Provider: MAILE NORMAN nicotine polacrilex (NICORETTE) 4 mg gum 100 Each 5 Sig: Take 1 Each by mouth as needed (urge to smoke). No more than 24 per day Authorizing Provider: MAILE NORMAN MD Patient called asking status of message. Pt called in and reports she would like to quit smoking. She states she smokes 1 1/2 packs of cigarettes a day for 20 years. She is asking if she could have nicotine patches and gum called into [facility] in [place] for her. She state she will need high dose of the patches. Please call Pt back and advise. documented in this encounter [facility] 07-18-2022 History of Present illness Narrative CC: Patient presents with: Headache: sore throat, ear pain x 1 day, covid exposure HPI: Pat Knight is a 42 year old female who presents to the office with complaint of head congestion and sore throat for the past day. Symptoms are staying the same. Associated symptoms includes headache. Denies fever, dyspnea, nausea, vomiting , and diarrhea. Treatments tried include nothing so far. with no relief of symptoms. Sick contacts: yes, covid. History of asthma, frequent episodes of bronchitis, chronic bronchitis, bronchiectasis or COPD: No Smoker: No Seasonal/environmental allergies: No The ROS is otherwise negative. The patient's pmh, medications, allergies, and past visits are reviewed. PHYSICAL EXAM: BP 122/70 Pulse 82 Temp 36.3 C (97.4 F) Resp 16 Wt 59.9 kg (132 lb) LMP 05/27/2009 SpO2 99% BMI 21.97 kg/m General appearance: alert, cooperative, pleasant, in no acute distress Head: Normocephalic Eyes: EOM's intact, conjunctiva pink and moist, no icterus, sclera white, non-injected Ears: Right ear: External ear/canal- Normal, TM - clear with good landmarks. Left ear: External ear/canal- Normal, TM - clear with good landmarks Oropharynx:mild erythema, without exudates present Heart: Negative. RRR without obvious murmur, gallop, or rubs. No ectopy. Lungs: clear to auscultation, without rales or wheeze, good air exchange PAST MEDICAL HISTORY Diagnosis Date Abdominal pain, unspecified site Abnormal glandular Papanicolaou smear of cervix 04/08/2006 Abn. Pap smear (cervix) Allergic rhinitis, cause unspecified 04/05/2006 Anxiety Congestive heart failure (HCC) Depression Diarrhea Hypertension Irritable bowel syndrome Mental disorders complicating , childbirth, or the puerperium DEPRESSION Migraine, unspecified, with intractable migraine, so stated, without mention of status migrainosus Other and unspecified ovarian cyst PMH - PAST MEDICAL HISTORY OF Narcotic dependence requiring rehab in 2006 Temporomandibular joint disorders, unspecified PAST SURGICAL HISTORY Procedure Laterality Date ADENOIDECTOMY PRIMARY <AGE 14 Adenoidectomy COLPOSCOPY CERVIX UPPER/ADJACENT VAGINA Colposcopy DILATION & CURETTAGE DX&/THER NONOBSTETRIC 2001 Dilation & curettage,TAB ESOPHAGOGASTRODUODENOSCOPY TRANSORAL DIAGNOSTIC 11/01/11 EGD [facility] inpt H-pylori negative LIG/TRNSXJ FLP TUBE ABDL/VAG APPR UNI/BI 04/09/2006 Tubal ligation MYRINGOTOMY ASPIR&/EUSTACHIAN TUBE NFLTJ ANES 1994 Myringotomy/tubes OOPHORECTOMY PARTIAL/TOTAL UNI/BI left TONSILLECTOMY PRIMARY/SECONDARY <AGE 14 1987 Tonsillectomy ALLERGIES Pamprin Multi-Symptom [Mymqivesjbsun-Hvmdxwyw-Ilzlbog], Buspar [Buspirone], Codeine, Lamotrigine, Nitrofurantoin Macrocrystal, and Promethazine-Phenylephrine MEDICATIONS acetaminophen (TYLENOL) 325 mg tablet Take 650 mg by mouth every 6 hours as needed. traZODone (DESYREL) 100 mg tablet Take 1 tablet by mouth daily at bedtime. FAMILY HISTORY Problem Relation Age of Onset Psychiatry Mother DEPRESSION Cervical Cancer Maternal Grandmother Hypertension Maternal Grandmother Cancer Maternal Grandfather BLADDER Heart Maternal Grandfather SC & EMPHYSEMA Social History Tobacco Use Smoking status: Every Day Packs/day: 1.00 Years: 14.00 Pack years: 14.00 Types: Cigarettes Smokeless tobacco: Never Vaping Use Vaping Use: Never used Substance Use Topics Alcohol use: No Drug use: No ASSESSMENT/PLAN: 1. Sore throat - ICD9: 462, ICD10: J02.9 (primary diagnosis) Differential covid due to exposure. - STREP A MOLECULAR (POC) - negative 2. URI, acute - ICD9: 465.9, ICD10: J06.9 - COVID WITH FLUA+B, ROUTINE Waiting on covid results Potential red flag symptoms discussed with the patient. Reviewed appropriate action plan to take if red flag symptoms occur. Patient agreeable to treatment plan. Kimberly Loya APRN.CNP documented in this encounter [facility] 06-01-2022 Miscellaneous Notes 05/31/2022 1003 Bonita Rangel morning, Reached out to patient to get her scheduled, patient states that she is already scheduled for this at [facility]. Thank you, Bonita Email sent to the [facility] requesting an US guided breast biopsy for Pat. Rosa M Mercado RN documented in this encounter [facility] 05-26-2022 History of Present illness Narrative FOLLOW [facility]IT [facility] NO[facility] [id number] DATE OF SERVICE: 05/25/2022 : 1980 REFERRING PHYSICIAN: Maile Norman MD The patient is a 42 year old female with a complaint of a palpable breast mass. The patient notes a mass in the lower inner quadrant of her right breast. The patient has noticed this mass for 3 months. She notes pain in the area. She notes it is tender to touch. She feels the site is gradually growing in size. The patient had a mammogram and ultrasound on May 12, 2022 at [facility] which demonstrated: Ultrasound-a palpable abnormality listed as 1.1 x 1.4 x 0.4 cm slightly irregular recommending a biopsy. Bilateral mammogram demonstrated no specific abnormalities . She does not perform a self breast exam routinely. She notes no skin changes. She denies nipple discharge. She notes no axillary masses. She notes no family history of breast problems. She notes no significant breast trauma or breast difficulties in the past. The patient does smoke cigarettes and notes a chronic cough The patient is being seen by me at the request of Dr. Maile Norman MD for my opinion and advice regarding palpable right breast mass and ultrasound specific abnormality. I did not have access to the ultrasound or radiographic images when the patient was initially seen. I saw no 1 to 1.4 cm abnormalities at the site of her tender mass. I saw nonspecific fibroadenomatous changes. I therefore did not perform a biopsy. I asked for the images from [facility] to be noted in the [facility] system. The patient returns today for follow-up evaluation and likely biopsy. She is quite anxious about the possibility of breast cancer. Unfortunately, the mammogram images were placed in the system which demonstrated no abnormalities. The ultrasound images were not placed in the system. VITALS: Blood pressure 106/78, pulse 110, temperature 36.8 C (98.3 F), height 165.1 cm (5' 5), weight 59.9 kg (132 lb), last menstrual period 05/27/2009, SpO2 99 %. Assessment IMPRESSION: Right upper inner breast abnormality on outside institution imaging PLAN: I apologized to the patient that we did not have the proper imaging for me to compare and perform a biopsy today. My office will again try to get the proper images loaded in the [facility] system. Given the patient's anxiety and the fact that I will be out of the office for the next week I will attempt to have the biopsy performed by the breast radiologist as soon as possible in the [facility] system. Diagnoses: (N63.10) Mass of right breast, unspecified quadrant (primary encounter diagnosis) Return to Clinic: The patient is instructed to follow-up with me as needed. Kuldeep Ellis MD documented in this encounter [facility] 05-13-2022 History of Present illness Narrative HISTORY AND PHYSICAL - BREAST COMPLAINT Pat Knight 1980 REFERRING PHYSICIAN: Maile Norman MD CHIEF COMPLAINT: Painful inferior medial right breast mass HPI: The patient is a 42 year old female with a complaint of a palpable breast mass. The patient notes a mass in the lower inner quadrant of her right breast. The patient has noticed this mass for 3 months. She notes pain in the area. She notes it is tender to touch. She feels the site is gradually growing in size. The patient had a mammogram and ultrasound on May 12, 2022 at [facility] which demonstrated: Ultrasound-a palpable abnormality listed as 1.1 x 1.4 x 0.4 cm slightly irregular recommending a biopsy. Bilateral mammogram demonstrated no specific abnormalities . She does not perform a self breast exam routinely. She notes no skin changes. She denies nipple discharge. She notes no axillary masses. She notes no family history of breast problems. She notes no significant breast trauma or breast difficulties in the past. The patient does smoke cigarettes and notes a chronic cough The patient is being seen by me today at the request of Dr. Maile Norman MD for my opinion and advice regarding palpable right breast mass and ultrasound specific abnormality. PAST MEDICAL HISTORY Diagnosis Date Abdominal pain, unspecified site Abnormal glandular Papanicolaou smear of cervix 04/08/2006 Abn. Pap smear (cervix) Allergic rhinitis, cause unspecified 04/05/2006 Anxiety Congestive heart failure (HCC) Depression Diarrhea Hypertension Irritable bowel syndrome Mental disorders complicating , childbirth, or the puerperium DEPRESSION Migraine, unspecified, with intractable migraine, so stated, without mention of status migrainosus Other and unspecified ovarian cyst PMH - PAST MEDICAL HISTORY OF Narcotic dependence requiring rehab in 2006 Temporomandibular joint disorders, unspecified PAST SURGICAL HISTORY Procedure Laterality Date ADENOIDECTOMY PRIMARY <AGE 14 Adenoidectomy COLPOSCOPY CERVIX UPPER/ADJACENT VAGINA Colposcopy DILATION & CURETTAGE DX&/THER NONOBSTETRIC 2000 Dilation & curettage,TAB ESOPHAGOGASTRODUODENOSCOPY TRANSORAL DIAGNOSTIC 11/01/11 EGD [facility] inpt H-pylori negative LIG/TRNSXJ FLP TUBE ABDL/VAG APPR UNI/BI 04/09/2006 Tubal ligation MYRINGOTOMY ASPIR&/EUSTACHIAN TUBE NFLTJ ANES 1994 Myringotomy/tubes OOPHORECTOMY PARTIAL/TOTAL UNI/BI left TONSILLECTOMY PRIMARY/SECONDARY <AGE 14 1988 Tonsillectomy Current Outpatient Medications Medication Sig Dispense Refill acetaminophen (TYLENOL) 325 mg tablet Take 650 mg by mouth every 6 hours as needed. traZODone (DESYREL) 100 mg tablet Take 1 tablet by mouth daily at bedtime. 90 tablet 3 meloxicam (MOBIC) 15 mg tablet Take 1 tablet by mouth once daily. for pain. Take with food. 30 tablet 0 No current facility-administered medications for this visit. ALLERGIES: Pamprin Multi-Symptom [Ioglpivbzzess-Enbfzdab-Teletdy], Buspar [Buspirone], Codeine, Lamotrigine, Nitrofurantoin Macrocrystal, and Promethazine-Phenylephrine PERSONAL HISTORY: Social History Tobacco Use Smoking status: Every Day Packs/day: 1.00 Years: 14.00 Pack years: 14.00 Types: Cigarettes Smokeless tobacco: Never Vaping Use Vaping Use: Never used Substance Use Topics Alcohol use: No Drug use: No FAMILY HISTORY: FAMILY HISTORY Problem Relation Age of Onset Psychiatry Mother DEPRESSION Cervical Cancer Maternal Grandmother Hypertension Maternal Grandmother Cancer Maternal Grandfather BLADDER Heart Maternal Grandfather SC & EMPHYSEMA REVIEW OF SYMPTOMS: The review of systems data was entered by the nurse and reviewed by dc Nursing Notes: Rosa M Mercado RN 05/13/2022 12:33 PM Signed REVIEW OF SYSTEMS: General: The patient NOTES fatigue, denies weight loss, denies weight gain, denies feeling hot, and denies feelings of cold. Eyes: The patient denies glaucoma, denies eye injury/surgery, wears glasses or contacts. Ear/Nose/Throat: The patient NOTES allergies, denies hayfever, NOTES ear infections, and denies bloody noses. Cardiovascular: The patient denies chest pain, denies heart disease, denies high blood pressure,denies cardiac stent, denies prior heart attack, denies irregular heart beat, denies high cholesterol, denies poor circulation, NOTES heart failure, other cardiac issues, denies claudication, denies cold feet, denies peripheral arterial stent. Respiratory: The patient denies tuberculosis, denies pneumonia, denies frequent cough, denies pulmonary embolism, denies shortness of breath, and denies coughing up blood. Gastrointestinal: The patient denies difficulty swallowing, denies acid reflux, denies ulcers, denies vomiting, denies jaundice/hepatitis, denies gallbladder problems, denies black or tarry stools, denies hemorrhoids, denies bleeding from rectum, denies diverticulitis, denies constipation, denies diarrhea, denies loss of stool control, and denies hernias. Kidney/Bladder: The patient denies kidney stones, NOTES urine infections, and denies bloody urine. Skin: The patient denies a history of skin cancer, denies bleeding/changing moles, and denies a history of skin rash. Neurologic: The patient denies a history of epilepsy/convulsions, NOTES headaches, denies head/spinal injuries, and denies stroke/TIA. Psychiatric: The patient NOTES psychiatric medications, denies depression, and denies voices, denies substance abuse. Endocrine: The patient denies thyroid disorders, denies diabetes, and denies hormonal problems. Hematologic: The patient denies a history of bruising, denies bleeding, and denies anemia, denies blood clots. Infections: The patient denies a history of measles and mumps, denies rheumatic fever, and denies sexually transmitted diseases. Musculoskeletal: The patient denies back pain/injury, denies back problems, denies sciatica, denies knee/foot trouble, denies arthritis, or denies gout. When was patient's last Mammogram screening? 05/12/2022 Last Colonoscopy: None Rsoa M Mercado RN PHYSICAL EXAMINATION: General: The patient is 42 year old female, well nourished, well hydrated in no acute distress. The patient is oriented to time, place, and person. VITALS: Blood pressure 112/70, pulse 110, temperature 36.7 C (98 F), height 165.1 cm (5' 5), weight 57.6 kg (127 lb), last menstrual period 05/27/2009, SpO2 100 %. Body mass index is 21.13 kg/m . HEENT: Normal cephalic, ataumatic, pupils are equally round, sclera are anicteric, mucous membranes are moist, oropharynx is clear. Neck has no masses, asymmetry or lymphadenopathy. Thyroid is unremarkable. Respiratory: Clear to auscultation and percussion. Normal respiratory excursion and pattern. Cardiac: Examination is regular rate and rhythm. Abdominal exam: Soft, nontender, with no palpable masses. No hepatosplenomegaly. No palpable hernias. Rectal exam: exam deferred Extremities: no clubbing, cyanosis or edema. No adenopathy. Breast: Visual inspection reveals no retractions, nipple inversion, or skin changes. Palpation of the right breast reveals no dominant or suspicious masses, but multiple benign-feeling nodules. The patient notes tenderness in the right breast very inferior medial near the area of the costal cartilage. The area that feels to be about a 1 cm abnormality would be at the site of the costal cartilage junction. The patient is tender at that location. There are smaller nodules slightly above the medial to this area that are mobile but not suspicious. Palpation of the left breast reveals no dominant or suspicious masses, but multiple benign-feeling nodules. Axillary exam demonstrates no suspicious masses in either the left or right axilla. There is no nipple discharge expressed from either the left or right breast. LABORATORY VALUES: As Noted RADIOLOGIC STUDIES: As Noted Intraoffice ultrasound demonstrates costal cartilage this is approximately the area the patient is tender. The breast in that location is smaller than 1 cm in depth. An area of slight abnormality was noted medial to the tenderness area this was only 3 mm in size. Assessment IMPRESSION: 1.4 cm noted abnormality on ultrasound, tenderness right lower mid breast area PLAN: I discussed with the patient that I do not have the imaging from [facility] unfortunately today. The area that I see where she is tender looks more to me like costochondritis. I see a small abnormality slightly medial to that area but it is considerably smaller than the noted abnormality on ultrasound. I did not recommend breast biopsy today given the difference in my visualized abnormality versus the ultrasound report. I have asked the patient to return in 2 weeks after which I should have imaging sent into the clinic system so I can confirm the same site. Diagnoses: (N63.10) Mass of right breast, unspecified quadrant My findings have been communicated to Dr. Maile Norman MD via shared medical record. This note will be forwarded to Dr. Maile Norman MD. Return to Clinic: The patient is instructed to follow-up with me in 2 weeks. Kuldeep Ellis MD documented in this encounter [facility] 05-13-2022 Nurse Note REVIEW OF SYSTEMS: General: The patient NOTES fatigue, denies weight loss, denies weight gain, denies feeling hot, and denies feelings of cold. Eyes: The patient denies glaucoma, denies eye injury/surgery, wears glasses or contacts. Ear/Nose/Throat: The patient NOTES allergies, denies hayfever, NOTES ear infections, and denies bloody noses. Cardiovascular: The patient denies chest pain, denies heart disease, denies high blood pressure,denies cardiac stent, denies prior heart attack, denies irregular heart beat, denies high cholesterol, denies poor circulation, NOTES heart failure, other cardiac issues, denies claudication, denies cold feet, denies peripheral arterial stent. Respiratory: The patient denies tuberculosis, denies pneumonia, denies frequent cough, denies pulmonary embolism, denies shortness of breath, and denies coughing up blood. Gastrointestinal: The patient denies difficulty swallowing, denies acid reflux, denies ulcers, denies vomiting, denies jaundice/hepatitis, denies gallbladder problems, denies black or tarry stools, denies hemorrhoids, denies bleeding from rectum, denies diverticulitis, denies constipation, denies diarrhea, denies loss of stool control, and denies hernias. Kidney/Bladder: The patient denies kidney stones, NOTES urine infections, and denies bloody urine. Skin: The patient denies a history of skin cancer, denies bleeding/changing moles, and denies a history of skin rash. Neurologic: The patient denies a history of epilepsy/convulsions, NOTES headaches, denies head/spinal injuries, and denies stroke/TIA. Psychiatric: The patient NOTES psychiatric medications, denies depression, and denies voices, denies substance abuse. Endocrine: The patient denies thyroid disorders, denies diabetes, and denies hormonal problems. Hematologic: The patient denies a history of bruising, denies bleeding, and denies anemia, denies blood clots. Infections: The patient denies a history of measles and mumps, denies rheumatic fever, and denies sexually transmitted diseases. Musculoskeletal: The patient denies back pain/injury, denies back problems, denies sciatica, denies knee/foot trouble, denies arthritis, or denies gout. When was patient's last Mammogram screening? 05/12/2022 Last Colonoscopy: None Rosa M Mercado RN documented in this encounter [facility] 05-13-2022 Miscellaneous Notes Patient calling asking about breast ultrasound results. Went over results, notes below from Dr Norman with understanding. Assisted with transfer to water pollution scientist to get Gen surgery appt set up. Order filed. Biopsy of lump recommended. Pt completed diagnostic mammogram and ultrasound. They are in scanned documents. Please review. documented in this encounter [facility] 05-11-2022 Miscellaneous Notes Order have been faxed to [facility] at this time and they will call her to schedule appointment. Pt called and is notified of providers message and instructions. Pt voices understanding. Pt asking if order can be sent to [facility]. Faxed orders to [phone]. Otilia Douglas RN New order signed, please send, thanks!! Since she hasn't had a mammogram before [facility] wants a diagnostic bilateral mammogram and us of the right breast.(This order is already in place.) Please let her know that unfortunately there is a long wait time for breast imaging. If she prefers she can check and see if she is able to get in sooner to do it somewhere else like [facility] or [place]. With her having the issues it would be best to get it done as soon as able so if she would like go else where we can send the order where ever she would like to get the imaging done. Patient called regarding diag mamm appt in May. She states concern with waiting that long. Please call patient and advise if okay to wait. Okay to leave detailed message on voicemail. documented in this encounter [facility] 05-07-2022 Instructions Karen Gaspar APRN.CNS - 05/07/2022 11:39 AM EST documented in this encounter [facility] 05-07-2022 History of Present illness Narrative Images from the original note were not included. SUBJECTIVE: HEPATITIS B(2 of 3 - Hep B Twinrix 3-dose series) due on 05/19/2016 MAMMOGRAM Never done INFLUENZA(1) due on 02/25/2022 PAP TESTING due on 09/28/2022 HPV TESTING due on 09/28/2022 HPI Pat Knight is a 42 year old female. PMH significnat for ACTIVE PROBLEM LIST Allergic Rhinitis, Cause Unspecified Diarrhea Chronic Pain Depression Anxiety Add (Attention Deficit Hyperactivity Disorder, Inattentive Type) Hepatitis C Virus Infection Without Hepatic Coma Insomnia Last seen in office 04/2021 Maile Norman MD. Seen by psychiatry provider Bev Puckett 05/2021. Currently going to counseling or seeing psychiatry: no Seen by Dr Traore February 2022. Ms. Knight has complaint of generalized anxiety. She ADHD. no current prescriptions Notes marijuana smoking. States edibiles were recommended for ADHD in the past. Notes right shoulder popped lateral aspect / bicep area 3 mos ago when she raised her arm. Has not yet sought care for this. Achey pain constant, sharp pain with raising her arm or reaching behind her back. Ibuprofen 600 mg TID for a few months, has helped. Also taking Tylenol. Notes breast lump resent right medial lower aspect, unsure how long present. Notes trazodone is helping with sleep. No AEs reported. Review of Systems Musculoskeletal: Positive for arthralgias. Psychiatric/Behavioral: Positive for decreased concentration. Objective BP 98/62 Pulse 99 Resp 16 Ht 165.1 cm (5' 5) Wt 56.2 kg (124 lb) LMP 05/27/2009 SpO2 97% BMI 20.63 kg/m Physical Exam Vitals and nursing note reviewed. Constitutional: Appearance: Normal appearance. HENT: Head: Normocephalic and atraumatic. Cardiovascular: Rate and Rhythm: Normal rate and regular rhythm. Heart sounds: Normal heart sounds. Pulmonary: Effort: Pulmonary effort is normal. Breath sounds: Normal breath sounds. Chest: Breasts: Right: Mass present. No swelling, bleeding, inverted nipple, nipple discharge, skin change or tenderness. Comments: palpable mass ~1cm diam medial lower right breast Abdominal: General: Bowel sounds are normal. Palpations: Abdomen is soft. Skin: General: Skin is warm and dry. Neurological: General: No focal deficit present. Mental Status: She is alert and oriented to person, place, and time. ALLERGIES Allergen Reactions Pamprin Multi-Sympt* Rash, Itching, Shortness of Breath Severe itching all over body, slight rash, hyper ventilating, lips swelled badly Buspar [Buspirone] Mental Status Change Caused suicidal thoughts Codeine Hives, Itching Lamotrigine Hives Nitrofurantoin Macr* Unknown Promethazine-Phenyl* Intolerance Make her feel like passing out ibuprofen (IBU-200) 200 mg tablet Take 600 mg by mouth every 6 hours as needed. acetaminophen (TYLENOL) 325 mg tablet Take 650 mg by mouth every 6 hours as needed. traZODone (DESYREL) 100 mg tablet Take 1 tablet by mouth daily at bedtime. PAST MEDICAL HISTORY Diagnosis Date Abdominal pain, unspecified site Abnormal glandular Papanicolaou smear of cervix 04/08/2006 Abn. Pap smear (cervix) Allergic rhinitis, cause unspecified 04/05/2006 Anxiety Congestive heart failure (HCC) Depression Diarrhea Hypertension Irritable bowel syndrome Mental disorders complicating , childbirth, or the puerperium DEPRESSION Migraine, unspecified, with intractable migraine, so stated, without mention of status migrainosus Other and unspecified ovarian cyst PMH - PAST MEDICAL HISTORY OF Narcotic dependence requiring rehab in 2006 Temporomandibular joint disorders, unspecified Social History Tobacco Use Smoking status: Every Day Packs/day: 1.00 Years: 14.00 Pack years: 14.00 Types: Cigarettes Smokeless tobacco: Never Vaping Use Vaping Use: Never used Substance Use Topics Alcohol use: No Drug use: No ASSESSMENT/PLAN: 1. Encounter for immunization - ICD9: V03.89, ICD10: Z23 (primary diagnosis) - HEPLISAV B (HEPATITIS B, ADJUVANT, ADULT) 2. 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 Insomnia, unspecified type - ICD9: 780.52, ICD10: G47.00(primary diagnosis) - COMP METABOLIC PANEL - CBC + DIFF - TRAZODONE 100 MG TABLET 4. Breast pain - ICD9: 611.71, ICD10: N64.4 5. Mass of lower inner quadrant of right breast - ICD9: 611.72, ICD10: N63.14 Endorse checking this at her earliest convenience - [facility] - US BREAST LTD RT 6. Chronic right shoulder pain - ICD9: 719.41, 338.29, ICD10: M25.511, G89.29 HEP orthoinfo handout Meloxicam QD prn - CONSULT TO ORTHOPAEDICS - CONSULT TO PHYSICAL THERAPY 7. Encounter for well woman exam with routine gynecological exam - ICD9: V72.31, ICD10: Z01.419 - CONSULT TO TORCH OPERATOR Did not complete labs today - endorse complete Scheduled mammogram, no other visit, stated needed to leave. Karen Gaspar APRN.MEDICAL CODING TECHNICIAN Medical Decision Making: Problems: Low: Acute, uncomplicated illness or injury, 2+ self-limited or minor problems and Stable chronic illness Data: Unique test(s) ordered: 2 Risk: Moderate: Drug management Medical Decision Making Level: 3 - Low documented in this encounter [facility] 04-20-2022 Miscellaneous Notes Pt requesting refill. JESUS: 05/12/21 NOV: 05/07/22 Last Refill: 03/05/22 Britt Murray LPN documented in this encounter [facility] 04-12-2022 History of Present illness Narrative POPULATION HEALTH NAVIGATION OUTREACH Action/FYI Left voicemail Pt identified by name and : NO Outreach Outcome/Action Unable to reach patient: Left message [employer] message sent Did you use a PCP flex slot to schedule this appointment? No Reason for Outreach Care Gap or Scheduling/Wellness visits Payer: Payor: [place] / Plan: [place] [facility] MEDICAID / Product Type: Medicaid / Care Gap Reviewed:: Specialty Scheduling Reminder: Reminder note to check Health Maintenance for items below Health Maintenance items due: DTAP,TDAP,TD(1 - Tdap) Never done HEPATITIS B(2 of 3 - Hep B Twinrix 3-dose series) due on 05/19/2016 MAMMOGRAM Never done INFLUENZA(1) due on 02/25/2022 PAP TESTING due on 09/28/2022 HPV TESTING due on 09/28/2022 Message Sent to Practice: No Navigation Signature: Kimberly Caruso April 12, 2022 12:02 PM documented in this encounter [facility] 03-16-2022 History of Present illness Narrative Radiology Service Progress Note PATIENT NAME: Pat Knight DATE OF SERVICE: March 16, 2022 TIME: 8:36 AM PATIENT IDENTITY VERIFICATION COMPLETED USING TWO (2) IDENTIFIERS: Name and Date of confirmed by patient verbally. FALL SCREENING: Has the patient had 2 falls in the last year or 1 fall with injury or currently using an Ambulatory Assistive Device (Walker, Cane, Wheelchair, Crutches, etc.)? No PATIENT GENDER DATA: Female. status: : No status: NO. PATIENT RELEVANT IMPLANT DATA REVIEWED: Not Applicable RADIOLOGY DEPARTMENT: General X-ray: Exam(s) Completed: Upper Extremity X-Ray(s): Fingers/Thumb, right PERIPHERAL IV DATA: Not applicable SIGNED BY: RT Verónica(R) March 16, 2022 8:36 AM documented in this encounter [facility] 03-16-2022 History of Present illness Narrative Subjective HPI Pat Knight is a 42 year old female who presents with a possible foreign body in her right index finger. It has been present for about one month. She got the splinter by mopping her wooden floor with a cloth. She has been trying to squeeze the splinter out and sometimes some fluid comes out but she feels the splinter is still present. She states it is tender with touch. Review of Systems Constitutional: Negative for chills and fever. Musculoskeletal: Negative for joint pain. Skin: Negative for itching and rash. BP 122/80 Pulse 107 Temp 36.5 C (97.7 F) (Tympanic) Resp 18 Wt 58 kg (127 lb 12.8 oz) LMP 05/27/2009 SpO2 96% BMI 21.27 kg/m PAST MEDICAL HISTORY Diagnosis Date Abdominal pain, unspecified site Abnormal glandular Papanicolaou smear of cervix 04/08/2006 Abn. Pap smear (cervix) Allergic rhinitis, cause unspecified 04/05/2006 Anxiety Congestive heart failure (HCC) Depression Diarrhea Hypertension Irritable bowel syndrome Mental disorders complicating , childbirth, or the puerperium DEPRESSION Migraine, unspecified, with intractable migraine, so stated, without mention of status migrainosus Other and unspecified ovarian cyst PMH - PAST MEDICAL HISTORY OF Narcotic dependence requiring rehab in 2007 Temporomandibular joint disorders, unspecified PAST SURGICAL HISTORY Procedure Laterality Date ADENOIDECTOMY PRIMARY <AGE 14 Adenoidectomy COLPOSCOPY CERVIX UPPER/ADJACENT VAGINA Colposcopy DILATION & CURETTAGE DX&/THER NONOBSTETRIC 2000 Dilation & curettage,TAB ESOPHAGOGASTRODUODENOSCOPY TRANSORAL DIAGNOSTIC 11/01/11 EGD [facility] inpt H-pylori negative LIG/TRNSXJ FLP TUBE ABDL/VAG APPR UNI/BI 04/09/2006 Tubal ligation MYRINGOTOMY ASPIR&/EUSTACHIAN TUBE NFLTJ ANES 1994 Myringotomy/tubes OOPHORECTOMY PARTIAL/TOTAL UNI/BI left TONSILLECTOMY PRIMARY/SECONDARY <AGE 14 1988 Tonsillectomy ALLERGIES Pamprin Multi-Symptom [Sdnxgqrbaetez-Jkaxcxqm-Jgmsicu], Buspar [Buspirone], Codeine, Lamotrigine, Nitrofurantoin Macrocrystal, and Promethazine-Phenylephrine MEDICATIONS traZODone (DESYREL) 100 mg tablet Take 1 tablet by mouth daily at bedtime. venlafaxine (EFFEXOR) 37.5 mg tablet Take 0.5 tablets by mouth daily with food for 4 days, THEN 1 tablet daily with food. omeprazole (PRILOSEC) 20 mg capsule Take 1 capsule by mouth once daily as needed. 1/2 hr before meal. (Patient not taking: Reported on 10/13/2021 ) triamcinolone acetonide (NASACORT) 55 mcg nasal inhaler Use 2 Sprays in the nose once daily. (Patient not taking: Reported on 10/13/2021 ) loratadine (CLARITIN) 10 mg tablet Take 1 tablet by mouth once daily. (Patient not taking: Reported on 10/13/2021 ) FAMILY HISTORY Problem Relation Age of Onset Psychiatry Mother DEPRESSION Cervical Cancer Maternal Grandmother Hypertension Maternal Grandmother Cancer Maternal Grandfather BLADDER Heart Maternal Grandfather SC & EMPHYSEMA Social History Tobacco Use Smoking status: Every Day Packs/day: 1.00 Years: 14.00 Pack years: 14.00 Types: Cigarettes Smokeless tobacco: Never Vaping Use Vaping Use: Never used Substance Use Topics Alcohol use: No Drug use: No Objective Physical Exam Vitals and nursing note reviewed. Constitutional: Appearance: Normal appearance. Musculoskeletal: General: Swelling and tenderness present. Hands: Skin: General: Skin is warm and dry. Findings: No erythema or rash. Neurological: Mental Status: She is alert. ASSESSMENT/PLAN: 1. Splinter of finger - ICD9: 915.6, ICD10: S60.459A - XR DIGIT GENERAL 3V FRONTAL/LAT/OBL RIGHT - CONSULT PANEL TO ORTHOPAEDICS - warm water with epsom salt soaks 2-3 times daily, 15 minutes per time. Pennie Clemente APRN.CNP documented in this encounter [facility] 03-16-2022 Instructions Pennie Clemente APRN.CNP - 03/16/2022 8:30 AM EDT ASSESSMENT/PLAN: 1. Splinter of finger - ICD9: 915.6, ICD10: S60.459A - XR DIGIT GENERAL 3V FRONTAL/LAT/OBL RIGHT - CONSULT PANEL TO ORTHOPAEDICS - warm water with epsom salt soaks 2-3 times daily, 15 minutes per time. Pennie Clemente APRN.LUIS DANIEL documented in this encounter [facility] 03-09-2022 Miscellaneous Notes VM not set up. Mychart sent Past due for follow up since last April Had outside labs but LFTs not included Filed CBC and CMP. The following approved medication requests have been transmitted electronically. Requested Prescriptions Signed Prescriptions Disp Refills traZODone (DESYREL) 100 mg tablet 30 tablet 0 Sig: Take 1 tablet by mouth daily at bedtime. Authorizing Provider: MAILE NORMAN MD Patient has been identified by name and date of : Yes Patient phones for refill(s): Requested Prescriptions Pending Prescriptions Disp Refills traZODone (DESYREL) 100 mg tablet 30 tablet 11 Sig: Take 1 tablet by mouth daily at bedtime. Patient completely out of medication since Tuesday. Date of last office visit with pcp: 05/12/2021 Future appt: none Last 2 Encounter Wt Readings: Date: Wt: 01/20/2022 60 kg (132 lb 3.2 oz) 10/13/2021 60.4 kg (133 lb 3.2 oz) Previous labs/tests for medication: Blood Pressure: BUN (mg/dL) Date Value 08/24/2018 8 Sodium (mmol/L) Date Value 08/24/2018 139 Last 1 Encounter BP Readings: Date: BP: 01/20/2022 122/70 Liver Function: ALT (U/L) Date Value 08/24/2018 12 AST (U/L) Date Value 08/24/2018 15 Please advise. Thank you. Violeta Howard RN documented in this encounter [facility] 01-20-2022 History of Present illness Narrative Subjective HPI Nontoxic-appearing female presents urgent care chief complaint COVID-19 concerns. Patient states was exposed to COVID-19. States she has developed a cough and a sore throat. States she has not had COVID-19 infection recently. Is not vaccinated. Presents today for evaluation. Denies any OTC medication use. Denies any fever productive cough chest pain shortness of breath pleuritic pain hemoptysis nausea vomiting abdominal pain change bowel or bladder habits. Past medical history prescription medication use allergies reviewed. .Patient presents with: Cough: cough and ST x 2 days and left ear pain x 2 weeks-exposed PAST MEDICAL HISTORY Diagnosis Date Abdominal pain, unspecified site Abnormal glandular Papanicolaou smear of cervix 04/08/2006 Abn. Pap smear (cervix) Allergic rhinitis, cause unspecified 04/05/2006 Anxiety Congestive heart failure (HCC) Depression Diarrhea Hypertension Irritable bowel syndrome Mental disorders complicating , childbirth, or the puerperium DEPRESSION Migraine, unspecified, with intractable migraine, so stated, without mention of status migrainosus Other and unspecified ovarian cyst PMH - PAST MEDICAL HISTORY OF Narcotic dependence requiring rehab in 2006 Temporomandibular joint disorders, unspecified PAST SURGICAL HISTORY Procedure Laterality Date ADENOIDECTOMY PRIMARY <AGE 14 Adenoidectomy COLPOSCOPY CERVIX UPPER/ADJACENT VAGINA Colposcopy DILATION & CURETTAGE DX&/THER NONOBSTETRIC 2000 Dilation & curettage,TAB ESOPHAGOGASTRODUODENOSCOPY TRANSORAL DIAGNOSTIC 11/01/11 EGD [facility] inpt H-pylori negative LIG/TRNSXJ FLP TUBE ABDL/VAG APPR UNI/BI 04/09/2006 Tubal ligation MYRINGOTOMY ASPIR&/EUSTACHIAN TUBE NFLTJ ANES 1994 Myringotomy/tubes OOPHORECTOMY PARTIAL/TOTAL UNI/BI left TONSILLECTOMY PRIMARY/SECONDARY <AGE 14 1988 Tonsillectomy ALLERGIES Pamprin Multi-Symptom [Zpbwyujqeedqt-Wobiphvs-Levsdeh], Buspar [Buspirone], Codeine, Lamotrigine, Nitrofurantoin Macrocrystal, and Promethazine-Phenylephrine MEDICATIONS venlafaxine (EFFEXOR) 37.5 mg tablet Take 0.5 tablets by mouth daily with food for 4 days, THEN 1 tablet daily with food. traZODone (DESYREL) 100 mg tablet Take 1 tablet by mouth daily at bedtime. omeprazole (PRILOSEC) 20 mg capsule Take 1 capsule by mouth once daily as needed. 1/2 hr before meal. triamcinolone acetonide (NASACORT) 55 mcg nasal inhaler Use 2 Sprays in the nose once daily. loratadine (CLARITIN) 10 mg tablet Take 1 tablet by mouth once daily. FAMILY HISTORY Problem Relation Age of Onset Psychiatry Mother DEPRESSION Cervical Cancer Maternal Grandmother Hypertension Maternal Grandmother Cancer Maternal Grandfather BLADDER Heart Maternal Grandfather SC & EMPHYSEMA Social History Tobacco Use Smoking status: Current Every Day Smoker Packs/day: 1.00 Years: 14.00 Pack years: 14.00 Types: Cigarettes Smokeless tobacco: Never Used Vaping Use Vaping Use: Never used Substance Use Topics Alcohol use: No Drug use: No BP 122/70 Pulse 80 Temp 36.4 C (97.5 F) (Tympanic) Resp 16 Wt 60 kg (132 lb 3.2 oz) LMP 05/27/2009 SpO2 97% BMI 22.00 kg/m Review of Systems Constitutional: Negative for chills, fever and malaise/fatigue. HENT: Positive for congestion, ear pain and sore throat. Negative for ear discharge and sinus pain. Eyes: Negative for blurred vision, pain, discharge and redness. Respiratory: Positive for cough. Negative for hemoptysis, sputum production, shortness of breath, wheezing and stridor. Cardiovascular: Negative for chest pain. Gastrointestinal: Negative for abdominal pain, diarrhea, nausea and vomiting. Musculoskeletal: Negative for myalgias. Skin: Negative for itching and rash. Neurological: Negative for dizziness and headaches. Objective Physical Exam Vitals and nursing note reviewed. Constitutional: General: She is not in acute distress. Appearance: She is not diaphoretic. HENT: Head: Normocephalic and atraumatic. Jaw: No trismus, tenderness, swelling or pain on movement. Right Ear: Hearing, tympanic membrane, ear canal and external ear normal. No decreased hearing noted. No drainage, swelling or tenderness. No mastoid tenderness. Tympanic membrane is not perforated, erythematous or bulging. Left Ear: Hearing, tympanic membrane, ear canal and external ear normal. No decreased hearing noted. No drainage, swelling or tenderness. No mastoid tenderness. Tympanic membrane is not perforated, erythematous or bulging. Nose: Congestion present. Mouth/Throat: Lips: [place]. Mouth: Mucous membranes are moist. Pharynx: Oropharynx is clear. Uvula midline. No pharyngeal swelling, oropharyngeal exudate, posterior oropharyngeal erythema or uvula swelling. Eyes: General: Right eye: No discharge. Left eye: No discharge. Conjunctiva/sclera: Conjunctivae normal. Pupils: Pupils are equal, round, and reactive to light. Cardiovascular: Rate and Rhythm: Normal rate and regular rhythm. Heart sounds: Normal heart sounds. Pulmonary: Effort: Pulmonary effort is normal. No tachypnea, accessory muscle usage or respiratory distress. Breath sounds: Normal breath sounds. No stridor. No wheezing, rhonchi or rales. Abdominal: Palpations: Abdomen is soft. Tenderness: There is no abdominal tenderness. There is no guarding or rebound. Musculoskeletal: General: No tenderness. Normal range of motion. Cervical back: Normal range of motion and neck supple. No rigidity or tenderness. Lymphadenopathy: Head: Right side of head: No submental, submandibular, tonsillar, preauricular, posterior auricular or occipital adenopathy. Left side of head: No submental, submandibular, tonsillar, preauricular, posterior auricular or occipital adenopathy. Cervical: No cervical adenopathy. Right cervical: No superficial or posterior cervical adenopathy. Left cervical: No superficial or posterior cervical adenopathy. Skin: General: Skin is warm and dry. Findings: No rash. Neurological: Mental Status: She is alert and oriented to person, place, and time. ASSESSMENT/PLAN: 1. Viral illness - ICD9: 079.99, ICD10: B34.9 - COVID WITH FLUA+B, ROUTINE COVID-19 test ordered. Results pending. Alternative diagnosis discussed. Patient was educated on supportive therapies. Patient will follow up with primary care provider as needed. Patient was instructed to immediately proceed to emergency room for any new, worsening, or symptoms lasting longer than anticipated. The patient's clinical presentation is otherwise unremarkable at this time. Based on exam and clinical finding, the patient is stable for discharge. Plan of care was discussed with patient. Patient verbalizes understanding and agrees to plan of care. This note was generated using [employer] software. It may contain errors in wording, punctuation, or spelling. Galo Bernal APRN.LUIS DANIEL documented in this encounter [facility] 01-20-2022 Instructions Galo Bernal APRN.LUIS DANIEL - 01/20/2022 3:33 PM EDT How to Manage Common Symptoms Associated with COVID for Adults Fever- Fever is a temperature over 100.4 F and can occur when the body is fighting an infection. To help treat a fever: Drink plenty of fluids and stay well hydrated. Eat small amounts of easy to digest food. Rest. Your body needs rest to recover, but getting up and moving around the house frequently is a good idea. You should try to continue doing your normal daily activities (bathing, toileting, grooming, cooking), though you will probably feel tired, and need to rest often. Avoid any heavy activity or exercise, as this will increase your body temperature. Dress in light clothing and stay covered in a light sheet. Keep the room temperature cool. Take a slightly warm (not cold or cool) bath, or apply damp washcloths to the forehead and wrists. Cough- Cough is a common symptom associated with COVID and can be bothersome. To help treat a cough: Stay well hydrated. Try warm water or tea with lemon and/or honey to help soothe the cough. Use a humidifier to add moisture to the air. Try a product with menthol, like a cough drop or a rub for your chest such as Vicks, which can help reduce cough. Try cough drops. Avoid smoking and other strong odors or perfumes. Try breathing exercises to keep your lungs open and clear. Take a big deep breath through your nose and hold for 5 seconds before slowly releasing. Repeat frequently, while you are awake. Congestion- Runny nose or nasal congestion can occur with COVID. Treatment can help relieve symptoms: Try OTC nasal saline spray, or nasal saline rinse to relieve mucus congestion. Nasal strips can help keep nasal passages open, to increase airflow. Elevating your head with an extra pillow in bed can help reduce congestion. Using a humidifier can increase moisture in the air, and make breathing easier. Sore Throat- Another common symptom with COVID, can be managed at home by: Stay well hydrated. Gargle with salt water mix teaspoon salt with 1 cup of warm water and gargle. This helps to loosen mucus in the back of the throat and may reduce discomfort. Try ice chips, popsicles or lozenges to soothe the throat. Nausea/Vomiting/Diarrhea- These are common symptoms, and staying hydrated is most important. If you are nauseous or vomiting, start with small sips of water every 10-15 minutes and increase as tolerated. You can try sucking an ice cube too. If tolerating, you can try pedialyte or Gatorade, or flat sprite or radha-elda. Start slowly and increase as you are able to. Instead of meals, try smaller, more frequent snacks. Try eating bland foods like crackers, toast, rice, and applesauce. Avoid spicy, greasy or fried foods and dairy containing foods. Even if you aren't feeling hungry due to lack of smell or taste, it is important to try to take in some food when you are able. After drinking and eating, rest in an upright position for up to two hours as needed to help decrease nauseous feelings. Try closing your eyes, avoid moving and watching TV. Avoid strong odors that can make you feel more nauseated. When to seek emergency medical attention Look for emergency warning signs for COVID-19. If having any of these symptoms, seek emergency medical care immediately: Trouble breathing Persistent pain or pressure in the chest New confusion Inability to wake or stay awake Bluish lips or face *This list is not all possible symptoms. Please call your medical provider for any other symptoms that are severe or concerning to you. documented in this encounter [facility] 01-05-2022 History of Present illness Narrative Nontoxic-appearing female presents urgent care chief complaint throat/chest discomfort. Patient states last night she did vomit. She states at the end of vomiting she was vomiting up blood. States she does have some esophageal pain after this episode. Presents today for evaluation. States history of esophageal rupture in the past presents today to ensure she did not rupture her esophagus again. With patient's complaint I recommended patient be seen the ED for further evaluation care. Patient verbalized understanding agrees with plan of care will be seen at [facility]. Galo Bernal APRN.LUIS DANIEL documented in this encounter [facility] 12-18-2021 Miscellaneous Notes Pt called I asking for her blood type. She had a type and screen done in 08-10-05. Mailed to pt. Amber Minaya LPN documented in this encounter [facility] 03-09-2021 History of Present illness Narrative Radiology Service Progress Note PATIENT NAME: Pat Knight DATE OF SERVICE: March 09, 2021 TIME: 9:50 AM PATIENT IDENTITY VERIFICATION COMPLETED USING TWO (2) IDENTIFIERS: Name and Date of confirmed by patient verbally. FALL SCREENING: Has the patient had 2 falls in the last year or 1 fall with injury or currently using an Ambulatory Assistive Device (Walker, Cane, Wheelchair, Crutches, etc.)? No PATIENT GENDER DATA: Female. status: : No status: NO. PATIENT RELEVANT IMPLANT DATA REVIEWED: Not Applicable RADIOLOGY DEPARTMENT: General X-ray: Exam(s) Completed: Chest X-Ray PERIPHERAL IV DATA: Not applicable SIGNED BY: RT Verónica(R) March 09, 2021 9:50 AM documented in this encounter [facility] 06-15-2016 History of Past i llness Narrative Problem Noted Date Resolved Date Chronic hepatitis C without hepatic coma 016 06/15/2016 Internal derangement of knee 07/28/200908/2012 Nonallopathic lesion of lowe r extremities, not elsewhere classified 11/23/2005 10/27/2012 Irritable bowel syndrome 013 Migraine, unspecified, with intractable migraine, so stated, without mention of status migrainosus 10/27/2012 Hypertension 09/11/2014 Congestive heart failure 015 documented as of this encounter (statuses as of 12/22/2021) [facility] of Past illness Narrative* Problem Noted Date Resolved Date Chronic hepatitis C without hepatic coma 016 06/15/2016 Internal derangement of knee 07/28/200908/2012 Nonallopathic lesion of lowe r extremities, not elsewhere classified 11/23/2005 10/27/2012 Irritable bowel syndrome 013 Migraine, unspecified, with intractable migraine, so stated, without mention of status migrainosus 10/27/2012 Hypertension 09/11/2014 Congestive heart failure 015 documented as of this encounter (statuses as of 01/05/2022) [facility] of Past illness Narrative* Problem Noted Date Resolved Date Chronic hepatitis C without hepatic coma 016 06/15/2016 Internal derangement of knee 07/28/200908/2012 Nonallopathic lesion of lowe r extremities, not elsewhere classified 11/23/2005 10/27/2012 Irritable bowel syndrome 013 Migraine, unspecified, with intractable migraine, so stated, without mention of status migrainosus 10/27/2012 Hypertension 09/11/2014 Congestive heart failure 015 documented as of this encounter (statuses as of 01/20/2022) [facility] of [facility] Narrative* Problem Noted Date Resolved Date Chronic hepatitis C without hepatic coma 016 06/15/2016 Internal derangement of knee 07/28/200908/2012 Nonallopathic lesion of lowe r extremities, not elsewhere classified 11/23/2005 10/27/2012 Irritable bowel syndrome 013 Migraine, unspecified, with intractable migraine, so stated, without mention of status migrainosus 10/27/2012 Hypertension 09/11/2014 Congestive heart failure 015 documented as of this encounter (statuses as of 03/08/2022) [facility] of [facility] Narrative* Problem Noted Date Resolved Date Chronic hepatitis C without hepatic coma 016 06/15/2016 Internal derangement of knee 07/28/200908/2012 Nonallopathic lesion of lowe r extremities, not elsewhere classified 11/23/2005 10/27/2012 Irritable bowel syndrome 013 Migraine, unspecified, with intractable migraine, so stated, without mention of status migrainosus 10/27/2012 Hypertension 09/11/2014 Congestive heart failure 015 documented as of this encounter (statuses as of 03/09/2022) [facility] Narrative* Problem Noted Date Resolved Date Chronic hepatitis C without hepatic coma 016 06/15/2016 Internal derangement of knee 07/28/200908/2012 Nonallopathic lesion of lowe r extremities, not elsewhere classified 11/23/2005 10/27/2012 Irritable bowel syndrome 013 Migraine, unspecified, with intractable migraine, so stated, without mention of status migrainosus 10/27/2012 Hypertension 09/11/2014 Congestive heart failure 015 documented as of this encounter (statuses as of 03/16/2022) [facility] Narrative* Problem Noted Date Resolved Date Chronic hepatitis C without hepatic coma 016 06/15/2016 Internal derangement of knee 07/28/200908/2012 Nonallopathic lesion of lowe r extremities, not elsewhere classified 11/23/2005 10/27/2012 Irritable bowel syndrome 013 Migraine, unspecified, with intractable migraine, so stated, without mention of status migrainosus 10/27/2012 Hypertension 09/11/2014 Congestive heart failure 015 documented as of this encounter (statuses as of 04/12/2022) [facility] Narrative* Problem Noted Date Resolved Date Chronic hepatitis C without hepatic coma 016 06/15/2016 Internal derangement of knee 07/28/200908/2012 Nonallopathic lesion of lowe r extremities, not elsewhere classified 11/23/2005 10/27/2012 Irritable bowel syndrome 013 Migraine, unspecified, with intractable migraine, so stated, without mention of status migrainosus 10/27/2012 Hypertension 09/11/2014 Congestive heart failure 015 documented as of this encounter (statuses as of 04/20/2022) [facility] of [facility] Narrative* Problem Noted Date Resolved Date Chronic hepatitis C without hepatic coma 016 06/15/2016 Internal derangement of knee 07/28/200908/2012 Nonallopathic lesion of lowe r extremities, not elsewhere classified 11/23/2005 10/27/2012 Irritable bowel syndrome 013 Migraine, unspecified, with intractable migraine, so stated, without mention of status migrainosus 10/27/2012 Hypertension 09/11/2014 Congestive heart failure 015 documented as of this encounter (statuses as of 05/07/2022) [facility] Narrative* Problem Noted Date Resolved Date Chronic hepatitis C without hepatic coma 016 06/15/2016 Internal derangement of knee 07/28/200908/2012 Nonallopathic lesion of lowe r extremities, not elsewhere classified 11/23/2005 10/27/2012 Irritable bowel syndrome 013 Migraine, unspecified, with intractable migraine, so stated, without mention of status migrainosus 10/27/2012 Hypertension 09/11/2014 Congestive heart failure 015 documented as of this encounter (statuses as of 05/11/2022) [facility] Narrative* Problem Noted Date Resolved Date Chronic hepatitis C without hepatic coma 016 06/15/2016 Internal derangement of knee 07/28/200908/2012 Nonallopathic lesion of lowe r extremities, not elsewhere classified 11/23/2005 10/27/2012 Irritable bowel syndrome 013 Migraine, unspecified, with intractable migraine, so stated, without mention of status migrainosus 10/27/2012 Hypertension 09/11/2014 Congestive heart failure 015 documented as of this encounter (statuses as of 05/13/2022) [facility] Narrative* Problem Noted Date Resolved Date Chronic hepatitis C without hepatic coma 016 06/15/2016 Internal derangement of knee 07/28/200908/2012 Nonallopathic lesion of lowe r extremities, not elsewhere classified 11/23/2005 10/27/2012 Irritable bowel syndrome 013 Migraine, unspecified, with intractable migraine, so stated, without mention of status migrainosus 10/27/2012 Hypertension 09/11/2014 Congestive heart failure 015 documented as of this encounter (statuses as of 05/26/2022) [facility] Narrative* Problem Noted Date Resolved Date Chronic hepatitis C without hepatic coma 016 06/15/2016 Internal derangement of knee 07/28/200908/2012 Nonallopathic lesion of lowe r extremities, not elsewhere classified 11/23/2005 10/27/2012 Irritable bowel syndrome 013 Migraine, unspecified, with intractable migraine, so stated, without mention of status migrainosus 10/27/2012 Hypertension 09/11/2014 Congestive heart failure 015 documented as of this encounter (statuses as of 05/31/2022) [facility] of [facility] Narrative* Problem Noted Date Resolved Date Chronic hepatitis C without hepatic coma 016 06/15/2016 Internal derangement of knee 07/28/200908/2012 Nonallopathic lesion of lowe r extremities, not elsewhere classified 11/23/2005 10/27/2012 Irritable bowel syndrome 013 Migraine, unspecified, with intractable migraine, so stated, without mention of status migrainosus 10/27/2012 Hypertension 09/11/2014 Congestive heart failure 015 documented as of this encounter (statuses as of 06/01/2022) [facility] Narrative* Problem Noted Date Resolved Date Chronic hepatitis C without hepatic coma 016 06/15/2016 Internal derangement of knee 07/28/200908/2012 Nonallopathic lesion of lowe r extremities, not elsewhere classified 11/23/2005 10/27/2012 Irritable bowel syndrome 013 Migraine, unspecified, with intractable migraine, so stated, without mention of status migrainosus 10/27/2012 Hypertension 09/11/2014 Congestive heart failure 015 documented as of this encounter (statuses as of 07/18/2022) [facility] Narrative* Problem Noted Date Resolved Date Chronic hepatitis C without hepatic coma 016 06/15/2016 Internal derangement of knee 07/28/200908/2012 Nonallopathic lesion of lowe r extremities, not elsewhere classified 11/23/2005 10/27/2012 Irritable bowel syndrome 013 Migraine, unspecified, with intractable migraine, so stated, without mention of status migrainosus 10/27/2012 Hypertension 09/11/2014 Congestive heart failure 015 documented as of this encounter (statuses as of 08/11/2022) [facility]arrative* Problem Noted Date Resolved Date Chronic hepatitis C without hepatic coma 016 06/15/2016 Internal derangement of knee 07/28/200908/2012 Nonallopathic lesion of lowe r extremities, not elsewhere classified 11/23/2005 10/27/2012 Irritable bowel syndrome 013 Migraine, unspecified, with intractable migraine, so stated, without mention of status migrainosus 10/27/2012 Hypertension 09/11/2014 Congestive heart failure 015 documented as of this encounter (statuses as of 09/09/2022) [facility]arrative* Problem Noted Date Resolved Date Chronic hepatitis C without hepatic coma 016 06/15/2016 Internal derangement of knee 07/28/200908/2012 Nonallopathic lesion of lowe r extremities, not elsewhere classified 11/23/2005 10/27/2012 Irritable bowel syndrome 013 Migraine, unspecified, with intractable migraine, so stated, without mention of status migrainosus 10/27/2012 Hypertension 09/11/2014 Congestive heart failure 015 documented as of this encounter (statuses as of 09/09/2022) [facility]arrative* Problem Noted Date Resolved Date Chronic hepatitis C without hepatic coma 016 06/15/2016 Internal derangement of knee 07/28/200908/2012 Nonallopathic lesion of lowe r extremities, not elsewhere classified 11/23/2005 10/27/2012 Irritable bowel syndrome 013 Migraine, unspecified, with intractable migraine, so stated, without mention of status migrainosus 10/27/2012 Hypertension 09/11/2014 Congestive heart failure 015 documented as of this encounter (statuses as of 09/17/2022) [facility]ative* Problem Noted Date Resolved Date Chronic hepatitis C without hepatic coma 016 06/15/2016 Internal derangement of knee 07/28/200908/2012 Nonallopathic lesion of lowe r extremities, not elsewhere classified 11/23/2005 10/27/2012 Irritable bowel syndrome 013 Migraine, unspecified, with intractable migraine, so stated, without mention of status migrainosus 10/27/2012 Hypertension 09/11/2014 Congestive heart failure 015 documented as of this encounter (statuses as of 12/01/2022) [facility]* Problem Noted Date Resolved Date Chronic hepatitis C without hepatic coma 016 06/15/2016 Internal derangement of knee 07/28/200908/2012 Nonallopathic lesion of lowe r extremities, not elsewhere classified 11/23/2005 10/27/2012 Irritable bowel syndrome 013 Migraine, unspecified, with intractable migraine, so stated, without mention of status migrainosus 10/27/2012 Hypertension 09/11/2014 Congestive heart failure 015 documented as of this encounter (statuses as of 12/02/2022) [facility]* Problem Noted Date Diagnosed Date Resolved Date Chronic hepatitis C without hepatic coma 06/15/2016 06/15/2016 Internal derangement of knee 07/28/2009 10/27/2012 Nonallopathic lesion of lowe r extremities, not elsewhere classified 11/23/2005 10/27/2012 Irritable bowel syndrome 08/2012 Migraine, unspecified, with intractable migraine, so stated, without mention of status migrainosus 10/27/2012 Hypertension 09/11/2014 Congestive heart failure documented as of this encounter (statuses as of 01/11/2023) [facility]* Problem Noted Date Diagnosed Date Resolved Date Chronic hepatitis C without hepatic coma 06/15/2016 06/15/2016 Internal derangement of knee 07/28/2009 10/27/2012 Nonallopathic lesion of lowe r extremities, not elsewhere classified 11/23/2005 10/27/2012 Irritable bowel syndrome 08/2012 Migraine, unspecified, with intractable migraine, so stated, without mention of status migrainosus 10/27/2012 Hypertension 09/11/2014 Congestive heart failure documented as of this encounter (statuses as of 02/09/2023) [facility]* Problem Noted Date Diagnosed Date Resolved Date Chronic hepatitis C without hepatic coma 06/15/2016 06/15/2016 Internal derangement of knee 07/28/2009 10/27/2012 Nonallopathic lesion of lowe r extremities, not elsewhere classified 11/23/2005 10/27/2012 Irritable bowel syndrome 08/2012 Migraine, unspecified, with intractable migraine, so stated, without mention of status migrainosus 10/27/2012 Hypertension 09/11/2014 Congestive heart failure documented as of this encounter (statuses as of 02/14/2023) [facility]* Problem Noted Date Diagnosed Date Resolved Date Chronic hepatitis C without hepatic coma 06/15/2016 06/15/2016 Internal derangement of knee 07/28/2009 10/27/2012 Nonallopathic lesion of lowe r extremities, not elsewhere classified 11/23/2005 10/27/2012 Irritable bowel syndrome 08/2012 Migraine, unspecified, with intractable migraine, so stated, without mention of status migrainosus 10/27/2012 Hypertension 09/11/2014 Congestive heart failure documented as of this encounter (statuses as of 02/14/2023) [facility]* Problem Noted Date Diagnosed Date Resolved Date Chronic hepatitis C without hepatic coma 06/15/2016 06/15/2016 Internal derangement of knee 07/28/2009 10/27/2012 Nonallopathic lesion of lowe r extremities, not elsewhere classified 11/23/2005 10/27/2012 Irritable bowel syndrome 08/2012 Migraine, unspecified, with intractable migraine, so stated, without mention of status migrainosus 10/27/2012 Hypertension 09/11/2014 Congestive heart failure documented as of this encounter (statuses as of 02/16/2023) [facility]* Problem Noted Date Diagnosed Date Resolved Date Chronic hepatitis C without hepatic coma 06/15/2016 06/15/2016 Internal derangement of knee 07/28/2009 10/27/2012 Nonallopathic lesion of lowe r extremities, not elsewhere classified 11/23/2005 10/27/2012 Irritable bowel syndrome 08/2012 Migraine, unspecified, with intractable migraine, so stated, without mention of status migrainosus 10/27/2012 Hypertension 09/11/2014 Congestive heart failure documented as of this encounter (statuses as of 03/07/2023) [facility]* Problem Noted Date Diagnosed Date Resolved Date Chronic hepatitis C without hepatic coma 06/15/2016 06/15/2016 Internal derangement of knee 07/28/2009 10/27/2012 Nonallopathic lesion of lowe r extremities, not elsewhere classified 11/23/2005 10/27/2012 Irritable bowel syndrome 08/2012 Migraine, unspecified, with intractable migraine, so stated, without mention of status migrainosus 10/27/2012 Hypertension 09/11/2014 Congestive heart failure documented as of this encounter (statuses as of 03/07/2023) [facility]* Problem Noted Date Diagnosed Date Resolved Date Chronic hepatitis C without hepatic coma 06/15/2016 06/15/2016 Internal derangement of knee 07/28/2009 10/27/2012 Nonallopathic lesion of lowe r extremities, not elsewhere classified 11/23/2005 10/27/2012 Irritable bowel syndrome 08/2012 Migraine, unspecified, with intractable migraine, so stated, without mention of status migrainosus 10/27/2012 Hypertension 09/11/2014 Congestive heart failure documented as of this encounter (statuses as of 03/08/2023) [facility] History of Past illness Narrative* Problem Noted Date Diagnosed Date Resolved Date Chronic hepatitis C without hepatic coma 06/15/2016 06/15/2016 Internal derangement of knee 07/28/2009 10/27/2012 Nonallopathic lesion of lowe r extremities, not elsewhere classified 11/23/2005 10/27/2012 Irritable bowel syndrome 08/2012 Migraine, unspecified, with intractable migraine, so stated, without mention of status migrainosus 10/27/2012 Hypertension 09/11/2014 Congestive heart failure documented as of this encounter (statuses as of 03/14/2023) [facility] History of Past illness Narrative* Problem Noted Date Diagnosed Date Resolved Date Chronic hepatitis C without hepatic coma 06/15/2016 06/15/2016 Internal derangement of knee 07/28/2009 10/27/2012 Nonallopathic lesion of lowe r extremities, not elsewhere classified 11/23/2005 10/27/2012 Irritable bowel syndrome 08/2012 Migraine, unspecified, with intractable migraine, so stated, without mention of status migrainosus 10/27/2012 Hypertension 09/11/2014 Congestive heart failure documented as of this encounter (statuses as of 03/19/2023) [facility] History of Past illness Narrative* Problem Noted Date Diagnosed Date Resolved Date Chronic hepatitis C without hepatic coma 06/15/2016 06/15/2016 Internal derangement of knee 07/28/2009 10/27/2012 Nonallopathic lesion of lowe r extremities, not elsewhere classified 11/23/2005 10/27/2012 Irritable bowel syndrome 08/2012 Migraine, unspecified, with intractable migraine, so stated, without mention of status migrainosus 10/27/2012 Hypertension 09/11/2014 Congestive heart failure documented as of this encounter (statuses as of 04/01/2023) [facility] History of Past illness Narrative* Problem Noted Date Diagnosed Date Resolved Date Chronic hepatitis C without hepatic coma 06/15/2016 06/15/2016 Internal derangement of knee 07/28/2009 10/27/2012 Nonallopathic lesion of lowe r extremities, not elsewhere classified 11/23/2005 10/27/2012 Irritable bowel syndrome 08/2012 Migraine, unspecified, with intractable migraine, so stated, without mention of status migrainosus 10/27/2012 Hypertension 09/11/2014 Congestive heart failure documented as of this encounter (statuses as of 04/11/2023) [facility] History of Past illness Narrative* Problem Noted Date Diagnosed Date Resolved Date Chronic hepatitis C without hepatic coma 06/15/2016 06/15/2016 Internal derangement of knee 07/28/2009 10/27/2012 Nonallopathic lesion of lowe r extremities, not elsewhere classified 11/23/2005 10/27/2012 Irritable bowel syndrome 08/2012 Migraine, unspecified, with intractable migraine, so stated, without mention of status migrainosus 10/27/2012 Hypertension 09/11/2014 Congestive heart failure documented as of this encounter (statuses as of 04/26/2023) [facility] History of Past illness Narrative* Problem Noted Date Diagnosed Date Resolved Date Chronic hepatitis C without hepatic coma 06/15/2016 06/15/2016 Internal derangement of knee 07/28/2009 10/27/2012 Nonallopathic lesion of lowe r extremities, not elsewhere classified 11/23/2005 10/27/2012 Irritable bowel syndrome 08/2012 Migraine, unspecified, with intractable migraine, so stated, without mention of status migrainosus 10/27/2012 Hypertension 09/11/2014 Congestive heart failure documented as of this encounter (statuses as of 04/26/2023) [facility] History of Past illness Narrative* Problem Noted Date Diagnosed Date Resolved Date Chronic hepatitis C without hepatic coma 06/15/2016 06/15/2016 Internal derangement of knee 07/28/2009 10/27/2012 Nonallopathic lesion of lowe r extremities, not elsewhere classified 11/23/2005 10/27/2012 Irritable bowel syndrome 08/2012 Migraine, unspecified, with intractable migraine, so stated, without mention of status migrainosus 10/27/2012 Hypertension 09/11/2014 Congestive heart failure documented as of this encounter (statuses as of 05/01/2023) [facility] History of Past illness Narrative* Problem Noted Date Diagnosed Date Resolved Date Chronic hepatitis C without hepatic coma 06/15/2016 06/15/2016 Internal derangement of knee 07/28/2009 10/27/2012 Nonallopathic lesion of lowe r extremities, not elsewhere classified 11/23/2005 10/27/2012 Irritable bowel syndrome 08/2012 Migraine, unspecified, with intractable migraine, so stated, without mention of status migrainosus 10/27/2012 Hypertension 09/11/2014 Congestive heart failure documented as of this encounter (statuses as of 05/01/2023) [facility] History of Past illness Narrative* Problem Noted Date Diagnosed Date Resolved Date Chronic hepatitis C without hepatic coma 06/15/2016 06/15/2016 Internal derangement of knee 07/28/2009 10/27/2012 Nonallopathic lesion of lowe r extremities, not elsewhere classified 11/23/2005 10/27/2012 Irritable bowel syndrome 08/2012 Migraine, unspecified, with intractable migraine, so stated, without mention of status migrainosus 10/27/2012 Hypertension 09/11/2014 Congestive heart failure documented as of this encounter (statuses as of 05/01/2023) [facility] History of Past illness Narrative* Problem Noted Date Diagnosed Date Resolved Date Chronic hepatitis C without hepatic coma 06/15/2016 06/15/2016 Internal derangement of knee 07/28/2009 10/27/2012 Nonallopathic lesion of lowe r extremities, not elsewhere classified 11/23/2005 10/27/2012 Irritable bowel syndrome 08/2012 Migraine, unspecified, with intractable migraine, so stated, without mention of status migrainosus 10/27/2012 Hypertension 09/11/2014 Congestive heart failure documented as of this encounter (statuses as of 05/03/2023) [facility] History of Past illness Narrative* Problem Noted Date Diagnosed Date Resolved Date Chronic hepatitis C without hepatic coma 06/15/2016 06/15/2016 Internal derangement of knee 07/28/2009 10/27/2012 Nonallopathic lesion of lowe r extremities, not elsewhere classified 11/23/2005 10/27/2012 Irritable bowel syndrome 08/2012 Migraine, unspecified, with intractable migraine, so stated, without mention of status migrainosus 10/27/2012 Hypertension 09/11/2014 Congestive heart failure documented as of this encounter (statuses as of 05/05/2023) [facility] History of Past illness Narrative* Problem Noted Date Diagnosed Date Resolved Date Chronic hepatitis C without hepatic coma 06/15/2016 06/15/2016 Internal derangement of knee 07/28/2009 10/27/2012 Nonallopathic lesion of lowe r extremities, not elsewhere classified 11/23/2005 10/27/2012 Irritable bowel syndrome 08/2012 Migraine, unspecified, with intractable migraine, so stated, without mention of status migrainosus 10/27/2012 Hypertension 09/11/2014 Congestive heart failure documented as of this encounter (statuses as of 05/12/2023) [facility] History of Past illness Narrative* Problem Noted Date Diagnosed Date Resolved Date Chronic hepatitis C without hepatic coma 06/15/2016 06/15/2016 Internal derangement of knee 07/28/2009 10/27/2012 Nonallopathic lesion of lowe r extremities, not elsewhere classified 11/23/2005 10/27/2012 Irritable bowel syndrome 08/2012 Migraine, unspecified, with intractable migraine, so stated, without mention of status migrainosus 10/27/2012 Hypertension 09/11/2014 Congestive heart failure documented as of this encounter (statuses as of 05/12/2023) [facility] History of Past illness Narrative* Problem Noted Date Diagnosed Date Resolved Date Chronic hepatitis C without hepatic coma 06/15/2016 06/15/2016 Internal derangement of knee 07/28/2009 10/27/2012 Nonallopathic lesion of lowe r extremities, not elsewhere classified 11/23/2005 10/27/2012 Irritable bowel syndrome 08/2012 Migraine, unspecified, with intractable migraine, so stated, without mention of status migrainosus 10/27/2012 Hypertension 09/11/2014 Congestive heart failure documented as of this encounter (statuses as of 05/12/2023) [facility] History of Past illness Narrative* Problem Noted Date Diagnosed Date Resolved Date Chronic hepatitis C without hepatic coma 06/15/2016 06/15/2016 Internal derangement of knee 07/28/2009 10/27/2012 Nonallopathic lesion of lowe r extremities, not elsewhere classified 11/23/2005 10/27/2012 Irritable bowel syndrome 08/2012 Migraine, unspecified, with intractable migraine, so stated, without mention of status migrainosus 10/27/2012 Hypertension 09/11/2014 Congestive heart failure documented as of this encounter (statuses as of 05/13/2023) [facility] History of Past illness Narrative* Problem Noted Date Diagnosed Date Resolved Date Chronic hepatitis C without hepatic coma 06/15/2016 06/15/2016 Internal derangement of knee 07/28/2009 10/27/2012 Nonallopathic lesion of lowe r extremities, not elsewhere classified 11/23/2005 10/27/2012 Irritable bowel syndrome 08/2012 Migraine, unspecified, with intractable migraine, so stated, without mention of status migrainosus 10/27/2012 Hypertension 09/11/2014 Congestive heart failure documented as of this encounter (statuses as of 05/13/2023) [facility] History of Past illness Narrative* Problem Noted Date Diagnosed Date Resolved Date Chronic hepatitis C without hepatic coma 06/15/2016 06/15/2016 Internal derangement of knee 07/28/2009 10/27/2012 Nonallopathic lesion of lowe r extremities, not elsewhere classified 11/23/2005 10/27/2012 Irritable bowel syndrome 08/2012 Migraine, unspecified, with intractable migraine, so stated, without mention of status migrainosus 10/27/2012 Hypertension 09/11/2014 Congestive heart failure documented as of this encounter (statuses as of 05/16/2023) [facility] History of Past illness Narrative* Problem Noted Date Diagnosed Date Resolved Date Chronic hepatitis C without hepatic coma 06/15/2016 06/15/2016 Internal derangement of knee 07/28/2009 10/27/2012 Nonallopathic lesion of lowe r extremities, not elsewhere classified 11/23/2005 10/27/2012 Irritable bowel syndrome 08/2012 Migraine, unspecified, with intractable migraine, so stated, without mention of status migrainosus 10/27/2012 Hypertension 09/11/2014 Congestive heart failure documented as of this encounter (statuses as of 05/26/2023) [facility] History of Past illness Narrative* Problem Noted Date Diagnosed Date Resolved Date Chronic hepatitis C without hepatic coma 06/15/2016 06/15/2016 Internal derangement of knee 07/28/2009 10/27/2012 Nonallopathic lesion of lowe r extremities, not elsewhere classified 11/23/2005 10/27/2012 Irritable bowel syndrome 08/2012 Migraine, unspecified, with intractable migraine, so stated, without mention of status migrainosus 10/27/2012 Hypertension 09/11/2014 Congestive heart failure documented as of this encounter (statuses as of 06/17/2023) [facility] History of Past illness Narrative* Problem Noted Date Diagnosed Date Resolved Date Chronic hepatitis C without hepatic coma 06/15/2016 06/15/2016 Internal derangement of knee 07/28/2009 10/27/2012 Nonallopathic lesion of lowe r extremities, not elsewhere classified 11/23/2005 10/27/2012 Irritable bowel syndrome 08/2012 Migraine, unspecified, with intractable migraine, so stated, without mention of status migrainosus 10/27/2012 Hypertension 09/11/2014 Congestive heart failure documented as of this encounter (statuses as of 08/01/2023) [facility] History of Past illness Narrative* Problem Noted Date Diagnosed Date Resolved Date Chronic hepatitis C without hepatic coma 06/15/2016 06/15/2016 Internal derangement of knee 07/28/2009 10/27/2012 Nonallopathic lesion of lowe r extremities, not elsewhere classified 11/23/2005 10/27/2012 Irritable bowel syndrome 08/2012 Migraine, unspecified, with intractable migraine, so stated, without mention of status migrainosus 10/27/2012 Hypertension 09/11/2014 Congestive heart failure documented as of this encounter (statuses as of 08/02/2023) [facility] History of Past illness Narrative* Problem Noted Date Diagnosed Date Resolved Date Chronic hepatitis C without hepatic coma 06/15/2016 06/15/2016 Internal derangement of knee 07/28/2009 10/27/2012 Nonallopathic lesion of lowe r extremities, not elsewhere classified 11/23/2005 10/27/2012 Irritable bowel syndrome 08/2012 Migraine, unspecified, with intractable migraine, so stated, without mention of status migrainosus 10/27/2012 Hypertension 09/11/2014 Congestive heart failure documented as of this encounter (statuses as of 08/05/2023) [facility] History of Past illness Narrative* Problem Noted Date Diagnosed Date Resolved Date Chronic hepatitis C without hepatic coma 06/15/2016 06/15/2016 Internal derangement of knee 07/28/2009 10/27/2012 Nonallopathic lesion of lowe r extremities, not elsewhere classified 11/23/2005 10/27/2012 Irritable bowel syndrome 08/2012 Migraine, unspecified, with intractable migraine, so stated, without mention of status migrainosus 10/27/2012 Hypertension 09/11/2014 Congestive heart failure documented as of this encounter (statuses as of 08/09/2023) [facility] History of Past illness Narrative* Problem Noted Date Diagnosed Date Resolved Date Chronic hepatitis C without hepatic coma 06/15/2016 06/15/2016 Internal derangement of knee 07/28/2009 10/27/2012 Nonallopathic lesion of lowe r extremities, not elsewhere classified 11/23/2005 10/27/2012 Irritable bowel syndrome 08/2012 Migraine, unspecified, with intractable migraine, so stated, without mention of status migrainosus 10/27/2012 Hypertension 09/11/2014 Congestive heart failure documented as of this encounter (statuses as of 08/10/2023) [facility] History of Past illness Narrative* Problem Noted Date Diagnosed Date Resolved Date Chronic hepatitis C without hepatic coma 06/15/2016 06/15/2016 Internal derangement of knee 07/28/2009 10/27/2012 Nonallopathic lesion of lowe r extremities, not elsewhere classified 11/23/2005 10/27/2012 Irritable bowel syndrome 08/2012 Migraine, unspecified, with intractable migraine, so stated, without mention of status migrainosus 10/27/2012 Hypertension 09/11/2014 Congestive heart failure documented as of this encounter (statuses as of 08/11/2023) [facility] History of Past illness Narrative* Problem Noted Date Diagnosed Date Resolved Date Chronic hepatitis C without hepatic coma 06/15/2016 06/15/2016 Internal derangement of knee 07/28/2009 10/27/2012 Nonallopathic lesion of lowe r extremities, not elsewhere classified 11/23/2005 10/27/2012 Irritable bowel syndrome 08/2012 Migraine, unspecified, with intractable migraine, so stated, without mention of status migrainosus 10/27/2012 Hypertension 09/11/2014 Congestive heart failure documented as of this encounter (statuses as of 08/11/2023) [facility] History of Past illness Narrative* Problem Noted Date Diagnosed Date Resolved Date Chronic hepatitis C without hepatic coma 06/15/2016 06/15/2016 Internal derangement of knee 07/28/2009 10/27/2012 Nonallopathic lesion of lowe r extremities, not elsewhere classified 11/23/2005 10/27/2012 Irritable bowel syndrome 08/2012 Migraine, unspecified, with intractable migraine, so stated, without mention of status migrainosus 10/27/2012 Hypertension 09/11/2014 Congestive heart failure documented as of this encounter (statuses as of 08/12/2023) [facility] History of Past illness Narrative* Problem Noted Date Diagnosed Date Resolved Date Chronic hepatitis C without hepatic coma 06/15/2016 06/15/2016 Internal derangement of knee 07/28/2009 10/27/2012 Nonallopathic lesion of lowe r extremities, not elsewhere classified 11/23/2005 10/27/2012 Irritable bowel syndrome 08/2012 Migraine, unspecified, with intractable migraine, so stated, without mention of status migrainosus 10/27/2012 Hypertension 09/11/2014 Congestive heart failure documented as of this encounter (statuses as of 08/18/2023) [facility] History of Past illness Narrative* Problem Noted Date Diagnosed Date Resolved Date Chronic hepatitis C without hepatic coma 06/15/2016 06/15/2016 Internal derangement of knee 07/28/2009 10/27/2012 Nonallopathic lesion of lowe r extremities, not elsewhere classified 11/23/2005 10/27/2012 Irritable bowel syndrome 08/2012 Migraine, unspecified, with intractable migraine, so stated, without mention of status migrainosus 10/27/2012 Hypertension 09/11/2014 Congestive heart failure documented as of this encounter (statuses as of 08/23/2023) [facility] History of Past illness Narrative* Problem Noted Date Diagnosed Date Resolved Date Chronic hepatitis C without hepatic coma 06/15/2016 06/15/2016 Internal derangement of knee 07/28/2009 10/27/2012 Nonallopathic lesion of lowe r extremities, not elsewhere classified 11/23/2005 10/27/2012 Irritable bowel syndrome 08/2012 Migraine, unspecified, with intractable migraine, so stated, without mention of status migrainosus 10/27/2012 Hypertension 09/11/2014 Congestive heart failure documented as of this encounter (statuses as of 09/01/2023) [facility] History of Past illness Narrative* Problem Noted Date Diagnosed Date Resolved Date Chronic hepatitis C without hepatic coma 06/15/2016 06/15/2016 Internal derangement of knee 07/28/2009 10/27/2012 Nonallopathic lesion of lowe r extremities, not elsewhere classified 11/23/2005 10/27/2012 Irritable bowel syndrome 08/2012 Migraine, unspecified, with intractable migraine, so stated, without mention of status migrainosus 10/27/2012 Hypertension 09/11/2014 Congestive heart failure documented as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 Referred To Contact BR IMAG[facility] Diagnoses Abnormal finding on radiological examination of breast Procedures US BREAST LTD RT US BREAST UNI REAL TIME WITH IMAGE LIMITED Heidi Marcelino MD [address] [place] [address] [facility] [address] [place] [phone] Referral ID Status Reason Start Date Expiration Date Visits Requested Visits Authorized [id number] Pending Review Auto-Generat ed Referral 05/31/2022 06/30/2023 1 1 * Diagnostic Procedure Only (Routine) - Pending Review Specialty Diagnoses / Procedures Referred By Contac t Referred To Contact BR IMAG[facility] Diagnoses Abnormal finding on radiological examination of breast Procedures KEYON DIAGNOSTIC BILAT DIAGNOSTIC MAMMOGRAPHY COMPUTER-AIDED DETCJ BI Heidi Marcelino MD [address] [place] [address] [facility] [address] [place] [phone] Referral ID Status Reason Start Date Expiration Date Visits Requested Visits Authorized [id number] Pending Review Auto-Generat ed Referral 05/31/2022 06/30/2023 1 1 [facility] for referral (narrative)* Diagnostic Procedure Only (Routine) - Closed Specialty Diagnoses / Procedures Referred By Charity t Referred To Contact XR IMAGING Diagnoses Coccydynia Procedures XR SACRUM/COCCYX 3V AP/LAT RADEX SACRUM & COCCYX MINIMUM 2 VIEWS Gayla Ayala APRN.CNP [address] [place] [address] X[facility] Imaging Referral ID Status Reason Start Date Expiration Date V isits Requested Visits Authorized [id number] Closed Auto-Generate d Referral 12/01/2022 12/31/2023 1 1 [facility] for referral (narrative)* Diagnostic Procedure Only (Routine) - Pending Review Specialty Diagnoses / Procedures Referred By Charity t Referred To Contact BR IM[facility] Diagnoses Encounter for screening mammogram for breast cancer Procedures KEYON SCREENING SCREENING MAMMOGRAPHY BI 2-VIEW BREAST INC Maile Garcia MD [address] [place] [address] [facility] [address] [place] [address] Referral ID Status Reason Start Date Expiration Date Visits Requested Visits Authorized [id number] Pending Review Auto-Generat ed Referral 02/09/2023 03/10/2024 1 1 [facility] for referral (narrative)* Diagnostic Procedure Only (Routine) - New Request Specialty Diagnoses / Procedures Referred By Contac t Referred To Contact BR IMAGING Diagnoses Encounter for screening mammogram for breast cancer Procedures KEYON SCREENING W TERESITA SCREENING DIGITAL BREAST TOMOSYNTHESIS BI SCREENING MAMMOGRAPHY BI 2-VIEW BREAST INC Maile Garica MD [address] [place] [address] [facility] [address] [place] [address] Referral ID Status Reason Start Date Expiration Date Visits Requested Visits Authorized [id number] New Request Auto-Generat ed Referral 01/11/2024 02/09/2025 1 1 [facility] for referral (narrative)* Diagnostic Procedure Only (Routine) - Closed Specialty Diagnoses / Procedures Referred By Contac t Referred To Contact XR IMAGING Diagnoses Coccydynia Procedures XR SACRUM/COCCYX 3V AP/LAT RADEX SACRUM & COCCYX MINIMUM 2 VIEWS PodlogGayla carias APRN.CNP [address] [place] [address] [place] [id number] Referral ID Status Reason Start Date Expiration Date V isits Requested Visits Authorized [id number] Closed Auto-Generate d Referral 12/01/2022 12/31/2023 1 1 [facility] for referral (narrative)* Diagnostic Procedure Only (Routine) - Closed Specialty Diagnoses / Procedures Referred By Contac t Referred To Contact XR IMAGING Diagnoses Splinter of finger Procedures XR DIGIT GENERAL 3V FRONTAL/LAT/OBL RIGHT RADEX FINGR MINIMUM 2 VIEWS Pennie Clemente, TREE DRILLER.DISABILITY MANAGER [address] [place] [address] [place] [address] Referral ID Status Reason Start Date Expiration Date V isits Requested Visits Authorized [id number] Closed Auto-Generate d Referral 03/16/2022 04/15/2023 1 1 [facility] for referral (narrative)* Diagnostic Procedure Only (Urgent) - Closed Specialty Diagnoses / Procedures Referred By Contac t Referred To Contact XR IMAGING Diagnoses Injury of left upper extremity, subsequent encounter Mass of left upper extremity Procedures XR FOREARM GENERAL 2V AP/LAT LEFT RADEX FOREARM 2 VIEWS Karen Gaspar APRN.MEDICAL CODING TECHNICIAN [address] [place] [address] [place] [address] Referral ID Status Reason Start Date Expiration Date V isits Requested Visits Authorized [id number] Closed Auto-Generate d Referral 05/10/2024 06/09/2025 1 1 [facility] for referral (narrative)* Diagnostic Procedure Only (Urgent) - New Request Specialty Diagnoses / Procedures Referred By Contac t Referred To Contact XR IMAGING Diagnoses Pain of right hand Procedures XR HAND GENERAL 3V PA/LAT/OBL RIGHT RADEX HAND MINIMUM 3 VIEWS Galo Bernal, TREE DRILLER.DISABILITY MANAGER [address] [place] [address] [place] [address] Referral ID Status Reason Start Date Expiration Date Visits Requested Visits Authorized [id number] New Request Auto-Generat ed Referral 06/22/2025 1 1 [facility] for referral (narrative)* Diagnostic Procedure Only (Urgent) - Closed Specialty Diagnoses / Procedures Referred By Contac t Referred To Contact XR IMAGING Diagnoses Pain of right hand Procedures XR HAND GENERAL 3V PA/LAT/OBL RIGHT RADEX HAND MINIMUM 3 VIEWS Galo Bernal, TREE DRILLER.DISABILITY MANAGER [address] [place] [address] [place] [address] Referral ID Status Reason Start Date Expiration Date V isits Requested Visits Authorized [id number] Closed Auto-Generate d Referral 05/23/2024 06/22/2025 1 1 [facility] for referral (narrative)* Diagnostic Procedure Only (Routine) - New Request Specialty Diagnoses / Procedures Referred By Contac t Referred To Contact BR IMAG[facility] Diagnoses Encounter for screening mammogram for breast cancer Procedures KEYON SCREENING W TERESITA SCREENING DIGITAL BREAST TOMOSYNTHESIS BI SCREENING MAMMOGRAPHY BI 2-VIEW BREAST INC CAD Cecile Herndon APRN.DISABILITY MANAGER [address] [place] [address] [facility] [address] [place] [address] Referral ID Status Reason Start Date Expiration Date Visits Requested Visits Authorized [id number] New Request Auto-Generat ed Referral 07/09/2024 08/08/2025 1 1 [facility] for visit Narrative* Diagnostic Procedure Only (Routine) - Closed Specialty Diagnoses / Procedures Referred By Contac t Referred To Contact XR IMAGING Diagnoses Coccydynia Procedures XR SACRUM/COCCYX 3V AP/LAT RADEX SACRUM & COCCYX MINIMUM 2 VIEWS PatylogGayla carias TREE DRILLER.DISABILITY MANAGER [address] [place] [address] [place] [address] Referral ID Status Reason Start Date Expiration Date V isits Requested Visits Authorized [id number] Closed Auto-Generate d Referral 12/01/2022 12/31/2023 1 1 [facility] for visit Narrative* Diagnostic Procedure Only (Routine) - Closed Specialty Diagnoses / Procedures Referred By Contac t Referred To Contact XR IMAGING Diagnoses Splinter of finger Procedures XR DIGIT GENERAL 3V FRONTAL/LAT/OBL RIGHT RADEX FINGR MINIMUM 2 VIEWS Pennie Clemente, TREE DRILLER.DISABILITY MANAGER [address] [place] [address] [place] [address] Referral ID Status Reason Start Date Expiration Date V isits Requested Visits Authorized [id number] Closed Auto-Generate d Referral 03/16/2022 04/15/2023 1 1 [facility] for visit Narrative* Diagnostic Procedure Only (Urgent) - Closed Specialty Diagnoses / Procedures Referred By Contac t Referred To Contact XR IMAGING Diagnoses Injury of left upper extremity, subsequent encounter Mass of left upper extremity Procedures XR FOREARM GENERAL 2V AP/LAT LEFT RADEX FOREARM 2 VIEWS Karen Gaspar, TREE DRILLER.MEDICAL CODING TECHNICIAN [address] [place] [address] [place] [address] Referral ID Status Reason Start Date Expiration Date V isits Requested Visits Authorized [id number] Closed Auto-Generate d Referral 05/10/2024 06/09/2025 1 1 [facility] for visit Narrative* Diagnostic Procedure Only (Urgent) - Closed Specialty Diagnoses / Procedures Referred By Contac t Referred To Contact XR IMAGING Diagnoses Pain of right hand Procedures XR HAND GENERAL 3V PA/LAT/OBL RIGHT RADEX HAND MINIMUM 3 VIEWS Galo Bernal, TREE DRILLER.DISABILITY MANAGER [address] [place] [address] [place] [address] Referral ID Status Reason Start Date Expiration Date V isits Requested Visits Authorized [id number] Closed Auto-Generate d Referral 05/23/2024 06/22/2025 1 1 [facility] for visit Narrative* Diagnostic Procedure Only (Routine) - Closed Specialty Diagnoses / Procedures Referred By Contac t Referred To Contact XR IMAGING Diagnoses Right hip pain Procedures XR HIP BILATERAL 5V PEL/AP/LAT EACH HIP RADEX HIPS BILATERAL WITH PELVIS MINIMUM 5 VIEWS Sam Khan, TREE DRILLER.DISABILITY MANAGER [address] [place] [address] Phone: tel: fax: [place] [id number] Referral ID Status Reason Start Date Expiration Date V isits Requested Visits Authorized [id number] Closed Auto-Generate d Referral 09/21/2024 10/21/2025 1 1 [facility] Summary Purpose Family History No Family History Records FoundNo Family History Records Found No data available for this section No data available for this section No data available for this section No data available for this section No data available for this section No Family History Records FoundNo Family History Records Found No data available for this section No Family History Records FoundNo Family History Records FoundNo Family History Records FoundNo Family History Records Found Advance Directives Documents on File Type Date Recorded Patient 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 Expl anation Advance Directive(s) Advance Directive(s) 12/30/2018 3:43 PM Advance Directive(s) 10/19/2018 9:14 PM Advance Directive(s) 07/02/2018 4:59 PM Advance Directive(s) 01/30/2018 1:31 PM Advance Directive(s) 01/23/2018 6:09 PM Reason for Referral Specialty Diagnoses / Procedures Referred By Contac t Referred To Contact Orthopedics Diagnoses Splinter of finger Procedures CONSULT PANEL TO ORTHOPAEDICS OFFICE/OUTPATIENT [facility] 60-74 MINUTES Pennie Clemente, RIGOBERTO.DISABILITY MANAGER [address] [place] [address] Referral ID Status Reason Start Date Expiration Date Visits Requested Visits Authorized [id number] Authorized PCP Requested Referral 03/16/2022 03/16/2023 1 1 Specialty Diagnoses / Procedures Referred By Contac t Referred To Contact XR IMAGING Diagnoses Splinter of finger Procedures XR DIGIT GENERAL 3V FRONTAL/LAT/OBL RIGHT RADEX FINGR MINIMUM 2 VIEWS Pennie Clemente, TREE DRILLER.DISABILITY MANAGER [address] [place] [address] Xr Imaging Referral ID Status Reason Start Date Expiration Date V isits Requested Visits Authorized [id number] Closed Auto-Generate d Referral 03/16/2022 04/15/2023 1 1 Specialty Diagnoses / Procedures Referred By Contac t Referred To Contact General Surgery Diagnoses Mass of right breast, unspecified quadrant Procedures CONSULT TO GENERAL SURGERY OFFICE/OUTPATIENT [facility] 60-74 MINUTES Maile Norman MD [address] [place] [address] Referral ID Status Reason Start Date Expiration Date V isits Requested Visits Authorized [id number] Closed PCP Requested Referral 05/12/2022 05/12/2023 1 1 Specialty Diagnoses / Procedures Referred By Contac t Referred To Contact MR IMAGING Diagnoses Tear of right glenoid labrum, subsequent encounter Chronic right shoulder pain Procedures MRI SHOULDER WO/W IVCON RIGHT MRI ANY JT UPPER EXTREMITY W/O & W/CONTR MATRL Sam Khan APRN.DISABILITY MANAGER [address] [place], [place] [id number] [facility] Referral ID Status Reason Start Date Expiration Date Visits Requested Visits Authorized [id number] Pending Review Auto-Generat ed Referral 02/08/2023 03/09/2024 1 1 Specialty Diagnoses / Procedures Referred By Contac t Referred To Contact Pain Management Diagnoses Tear of right glenoid labrum, subsequent encounter Chronic right shoulder pain Procedures CONSULT TO PAIN MGT OFFICE/OUTPATIENT [facility] 60-74 MINUTES Sam Khan APRN.DISABILITY MANAGER [address] [place] [address] Referral ID Status Reason Start Date Expiration Date Visits Requested Visits Authorized [id number] Authorized PCP Requested Referral 02/08/2023 02/08/2024 1 1 Specialty Diagnoses / Procedures Referred By Contac t Referred To Contact Orthopedics Diagnoses Tear of right glenoid labrum, subsequent encounter Chronic right shoulder pain Procedures CONSULT TO ORTHOPAEDICS OFFICE/OUTPATIENT [facility] 60-74 MINUTES Sam Khan APRN.DISABILITY MANAGER [address] [place] [address] Referral ID Status Reason Start Date Expiration Date Visits Requested Visits Authorized [id number] Authorized PCP Requested Referral 04/24/2024 1 1 Specialty Diagnoses / Procedures Referred By Contac t Referred To Contact Gynecology Diagnoses Screening for cervical cancer Procedures CONSULT TO GYNECOLOGY OFFICE/OUTPATIENT [facility] 60-74 MINUTES Rick Queen MD [address] [place] [address] Referral ID Status Reason Start Date Expiration Date Visits Requested Visits Authorized [id number] Authorized PCP Requested Referral Auto-Generate d Referral 04/30/2023 04/29/2024 1 1 Specialty Diagnoses / Procedures Referred By Contac t Referred To Contact [facility] Diagnoses Tachycardia Procedures ECG COMPLETE ECG ROUTINE ECG W/LEAST 12 LDS W/I&R Rick Queen MD [address] [place] [address] [facility] [place] [address] [place] [address] Referral ID Status Reason Start Date Expiration Date Visits Requested Visits Authorized [id number] Pending Review Auto-Generat ed Referral 04/30/2023 04/29/2024 1 1 Specialty Diagnoses / Procedures Referred By Contac t Referred To Contact MR IMAGING Diagnoses Tear of right glenoid labrum, subsequent encounter Chronic right shoulder pain Procedures MRI SHOULDER WO/W IVCON RIGHT MRI ANY JT UPPER EXTREMITY W/O & W/CONTR PRAMODL Sam Khan APRN.DISABILITY MANAGER [address] [place] [phone] Mr Imaging [facility] Referral ID Status Reason Start Date Expiration Date V isits Requested Visits Authorized [id number] Closed Auto-Generate d Referral 02/25/2023 06/26/2023 1 1 Specialty Diagnoses / Procedures Referred By Contac t Referred To Contact Orthopedics Diagnoses Chronic right shoulder pain Labral tear of shoulder, degenerative, right Procedures CONSULT TO ORTHOPAEDICS OFFICE/OUTPATIENT [facility] 60-74 MINUTES Charles Elliott APRN.DISABILITY MANAGER [address] [facility] [place] [phone] Antonio Rios MD [address] [place] [address] Referral ID Status Reason Start Date Expiration Date Visits Requested Visits Authorized [id number] Authorized PCP Requested Referral 05/11/2024 1 1 Specialty Diagnoses / Procedures Referred By Contac t Referred To Contact Pain Management Diagnoses Coccydynia Procedures CONSULT TO PAIN MGT OFFICE/OUTPATIENT [facility] 60-74 MINUTES PodlogarGayla APRN.DISABILITY MANAGER [address] [place] [address] Referral ID Status Reason Start Date Expiration Date Visits Requested Visits Authorized [id number] Authorized PCP Requested Referral 12/07/2022 12/06/2023 1 1 Specialty Diagnoses / Procedures Referred By Contac t Referred To Contact [facility] Diagnoses S/P shoulder surgery Procedures CONSULT TO PHYSICAL THERAPY PHYSICAL THERAPY EVALUATION HIGH COMPLEX 45 MINS Laura Tobar PA-C [address] [place] [address] [facility] [place] [address] [place] [address] Referral ID Status Reason Start Date Expiration Date Visits Requested Visits Authorized [id number] Pending Review Auto-Generat ed Referral 09/05/2023 09/04/2024 1 1 Specialty Diagnoses / Procedures Referred By Contac t Referred To Contact MR IMAGING Diagnoses S/P right rotator cuff repair Right shoulder pain, unspecified chronicity Procedures MRI SHOULDER WO IVCON RIGHT MRI ANY JT UPPER EXTREMITY W/O CONTRAST Louis Kaufman MD [address] [facility] [place] [address] [place] [address] Referral ID Status Reason Start Date Expiration Date Visits Requested Visits Authorized [id number] New Request Auto-Generat ed Referral 02/07/2024 03/08/2025 1 1 Specialty Diagnoses / Procedures Referred By Contac t Referred To Contact General Surgery Diagnoses Injury of left upper extremity, subsequent encounter Mass of left upper extremity Procedures CONSULT TO GENERAL SURGERY OFFICE/OUTPATIENT [facility] MDM 60 MINUTES Karen Gaspar, TREE DRILLER.MEDICAL CODING TECHNICIAN [address] [place] [address] Referral ID Status Reason Start Date Expiration Date Visits Requested Visits Authorized [id number] Authorized PCP Requested Referral 05/10/2025 1 1 Specialty Diagnoses / Procedures Referred By Contac t Referred To Contact XR IMAGING Diagnoses Injury of left upper extremity, subsequent encounter Mass of left upper extremity Procedures XR FOREARM GENERAL 2V AP/LAT LEFT RADEX FOREARM 2 VIEWS Karen Gaspar, TREE DRILLER.MEDICAL CODING TECHNICIAN [address] [place] [address] [place] [address] Referral ID Status Reason Start Date Expiration Date V isits Requested Visits Authorized [id number] Closed Auto-Generate d Referral 05/10/2024 06/09/2025 1 1 Referral ID Status Reason Start Date Expiration Date V isits Requested Visits Authorized [id number] Closed Auto-Generate d Referral 06/06/2024 07/06/2024 1 1 Health Concerns Infection Onset Date Last Indicated Resolved Time COVID-19 Rule-Out 07/18/2022 07/18/2022 Infection Onset Date Last Indicated Resolved Time COVID-19 Rule-Out 03/30/2023 03/30/2023 03/30/2023 7:56 PM EDT Infection Onset Date Last Indicated Resolved Time COVID-19 Rule-Out 03/30/2023 03/30/2023 03/30/2023 7:56 PM EDT Infection Onset Date Last Indicated Resolved Time RSV 08/01/2023 08/01/2023 Infection Onset Date Last Indicated Resolved Time RSV 08/01/2023 08/01/2023 08/29/2023 8:51 PM EST Additional Source Comments INFORMATION SOURCE (unrecogn ized section and content) DATE CREATED AUTHOR 07/04/2018 [facility] DATE CREATED AUTHOR AUTHOR'S ORGANIZ ATION 12/15/2021 [facility] DATE CREATED AUTHOR AUTHOR'S ORGANIZ ATION 02/17/2024 [facility] (PR) DATE CREATED AUTHOR AUTHOR'S ORGANIZ ATION 02/19/2024 [facility] DATE CREATED AUTHOR AUTHOR'S ORGANIZ ATION 05/03/2024 [facility] DATE CREATED AUTHOR AUTHOR'S ORGANIZ ATION 10/17/2024 [facility] DATE CREATED AUTHOR AUTHOR'S ORGANIZ ATION 11/21/2024 [facility] DATE CREATED AUTHOR AUTHOR'S ORGANIZ ATION 11/29/2024 [facility] Reason for Visit (unrecogniz ed section and content) Reason Comments PT Eval Specialty Diagnoses / Procedures Referred By Contac t Referred To Contact [facility] Diagnoses S/P right rotator cuff repair Right shoulder pain, unspecified chronicity Procedures CONSULT TO PHYSICAL THERAPY PHYSICAL THERAPY EVALUATION [facility] COMPLEX 45 MINS Laura Tobar PA-C [address] [place] [address] Phone: tel: fax: [facility] [address] [place] [address] Referral ID Status Reason Start Date Expiration Date Visits Requested Visits Authorized [id number] Authorized Auto-Generat ed Referral 06/27/2024 06/26/2025 8 8 Reason Comments PT Progress Note Specialty Diagnoses / Procedures Referred By Charity t Referred To Contact Physical Therapy / PHYSICAL THERAPY Diagnoses right shoulder post op Procedures NEW RS PT ORTH MSK Self Mya'Yodit Robin, PT Referral ID Status Reason Start Date Expiration Date V isits Requested Visits Authorized [id number] Authorized 06/27/2023 06/26/2024 30 30 Reason Comments Physical Therapy Reason Comments Dental Pain Reason Comments ABO Blood Type Reason Comments Nasal Congestion drainage, sore throa t, ear pain, headache- Reason Comments Cough cough and ST x 2 day s and left ear pain x 2 weeks-exposed Reason Onset Date Comments Refill Request 03/05/2022 Reason Comments splinter in right index finger X 1 month Reason Onset Date Comments Refill Request 04/20/2022 Reason Comments Yearly Exam Reason Comments Appointment Reason Comments Results Reason Comments Consult Right breast mass Specialty Diagnoses / Procedures Referred By Charity t Referred To Contact General Surgery Diagnoses Mass of right breast, unspecified quadrant Procedures CONSULT TO GENERAL SURGERY OFFICE/OUTPATIENT [facility] MDM 60-74 MINUTES Maile Norman MD [address] [place] [address] Referral ID Status Reason Start Date Expiration Date V isits Requested Visits Authorized [id number] Closed PCP Requested Referral 05/12/2022 05/12/2023 1 1 Reason Comments Consult Mass on right breast Reason Comments Referral Request US guided breast bio psy Reason Comments Headache sore throat, ear gini n x 1 day, covid exposure Reason Comments Medication Request Reason Comments Patient Update Reason Comments Cough Cough, congestion, b odyaches, ALEJANDRA and ST x 3 days Reason Comments Anxiety Reason Comments Appointment Request Reason Comments Acute Visit Area to tailbone fee ls abnormal x1 month Reason Comments Shoulder Injury of right shoulder an d requesting a MRI with contrast. This was a work related injury but due to paperwork issues the claim was closed. Has an tax associate attorney trying to appeal the decision. Consult pain management for right shoulder injury until WC Claim can be approved. Sore Throat started with fever 1 week ago. Cough moist slightly productive with yellow sputum. 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 Completed PT through [facility] discuss options Reason Comments Medication Problem Reason Onset Date Comments Palpitations Immunizations 04/30/2023 Flu vaccination Reason Comments Urinary Problem Was seen on 04/25 an d having no relief with current UTI meds Specialty Diagnoses / Procedures Referred By Charity menendez Referred To Contact MR IMAGING Diagnoses Tear of right glenoid labrum, subsequent encounter Chronic right shoulder pain Procedures MRI SHOULDER WO/W IVCON RIGHT MRI ANY JT UPPER EXTREMITY W/O & W/CONTR PRAMODL Sam Khan APRN.DISABILITY MANAGER [address] [place] [address] [facility] [place] [address] Referral ID Status Reason Start Date Expiration Date V isits Requested Visits Authorized [id number] Closed Auto-Generate d Referral 02/25/2023 06/26/2023 1 1 Reason Comments Referral Information Reason Onset Date Comments Refill Request 05/12/2023 Reason Comments New Patient Right shoulder Pain - Labrial Tear - 01/03 Reason Onset Date Comments Refill Request 05/25/2023 Reason Comments Pain New Referred by Charles Prebicat Specialty Diagnoses / Procedures Referred By Charity menendez Referred To Contact Orthopedics Diagnoses Chronic right shoulder pain Labral tear of shoulder, degenerative, right Procedures CONSULT TO ORTHOPAEDICS OFFICE/OUTPATIENT NEW HIGH MDM 60-74 MINUTES Prebish, RIGOBERTO Mendez.DISABILITY MANAGER [address] [place] [address] Antonio Rios MD [address] [place] [address] Referral ID Status Reason Start Date Expiration Date V isits Requested Visits Authorized [id number] Closed PCP Requested Referral 05/12/2023 05/11/2024 1 1 Reason Comments Flu Like Symptoms Bodyaches, chills, H A, ST, cough, chest congestion x 2 days Reason Onset Date Comments Refill Request 07/29/2023 Reason Comments Follow Up Reason Comments New Pain Reason Comments Cough Chest congestion, wh eeze, pain with cough, headache, fever, SOB x 2 days Reason Comments FYI-No Action Needed Reason Comments Refill Request Reason Comments Medication Follow-up Reason Comments Post Op Pain Reason Onset Date Comments Refill Request 09/15/2023 Reason Comments Opened In Error Reason Comments ER F/U Shoulder Reason Onset Date Comments Refill Request 09/30/2023 Reason Comments Follow Up right shoulder pain from injury after surgery Reason Comments Patient Question Reason Comments panic attacks Reason Onset Date Comments Refill Request 12/14/2023 Reason Comments Medication Follow-up Pain (Shoulder Pain) right shoulder gett ing worse since returning to work 3-4 week ago.S/P Shoulder surgery 08/2023 Reason Comments Follow Up 2 week follow up Reason Comments Mouth/Lip Problem Thrush x1 day Reason Comments Established Patient Reason Comments Pt requesting appt Reason Comments ER F/U [facility] 02/26/24 & 02/26 CT scan which showed possible pneumonia, WBC elevated, Right leg pain/swelling Reason Comments Patient Request Reason Comments ED Follow-up [facility] ER follow up fro m 03/18/24. Suture removal left forearm Reason Onset Date Comments Refill Request 04/04/2024 Reason Onset Date Comments Refill Request 04/12/2024 Reason Comments Finger Injury RIGHT middle finger x 1 week Reason Onset Date Comments Refill Request 03/23/2024 Reason Comments 4 week follow up Reason Comments Trauma Spider bite on right hand middle finger x 1 day Reason Comments Lump L forearm where stit ches were removed Reason Comments Symptoms getting worse Reason Comments Derm Problem Reason Comments sore on right middle finger X 2 weeks Reason Onset Date Comments Refill Request 05/28/2024 Reason Comments [facility] letter Reason Comments patient wanted General Surgery consult f axed to [place] Reason Onset Date Comments Refill Request 06/08/2024 Specialty Diagnoses / Procedures Referred By Charity t Referred To Contact MR IMAGING Diagnoses S/P right rotator cuff repair Right shoulder pain, unspecified chronicity Procedures MRI SHOULDER WO IVCON RIGHT MRI ANY JT UPPER EXTREMITY W/O CONTRAST MATRL Louis Valencia MD [address] [facility] [facility] [address] [address] [place] [id number] Referral ID Status Reason Start Date Expiration Date V isits Requested Visits Authorized [id number] Closed Auto-Generate d Referral 06/06/2024 07/06/2024 1 1 Reason Onset Date Comments Refill Request 06/22/2024 Reason Onset Date Comments Refill Request 07/01/2024 Reason Comments Patient Update Medication Problem Reason Comments Yearly Exam Reason Onset Date Comments Refill Request 07/06/2024 Reason Comments Pre-Op Exam Reason Comments Fax Over PreOp Forms Reason Onset Date Comments Refill Request 07/20/2024 Reason Comments F/U 3 Month Reason Comments Established Patient Follow Up Results - Mri Specialty Diagnoses / Procedures Referred By Charity t Referred To Contact Orthopedics / ORTHOPAEDIC SURGERY Diagnoses injection, MRI results Procedures DENISE ESTABLISH Louis Valencia MD [address] [place] [id number] [place] [address] [place] [address]. [address] [address] Referral ID Status Reason Start Date Expiration Date Visits Requested Visits Authorized [id number] New Request Financial Clearance Required - [employer] 07/27/2024 10/25/2024 1 1 Reason Onset Date Comments Refill Request 08/03/2024 Reason Comments Pre-Op Exam Excision of cyst on left forearm with Dr. Cordova scheduled for 07/13/24 at [facility] Reason Comments Clinical Update Reason Onset Date Comments Refill Request 08/16/2024 Reason Onset Date Comments Refill Request 08/30/2024 Reason Onset Date Comments Refill Request 09/13/2024 Reason Comments Established Patient Follow Up Pain Reason Comments Abdominal Pain lower right abdomen described it as a pinching pain at times. On going since treated for pneumonia kirsten 2023 Reason Comments Consult Reason Comments Refill Request Information Reason Onset Date Comments Refill Request 09/28/2024 Reason Comments Rx Refills Reason Onset Date Comments Refill Request 10/17/2024 Reason Onset Date Comments Refill Request 10/23/2024 Reason Comments Recheck 3 month follow up. Reason Comments Prior Authorization Reason Comments Patient Update Reason Comments Appointment Post-op physical the rapy Reason Comments Insurance Authorization Reason Comments Established Patient Follow Up Post Op Reason Comments Med Change Request Reason Comments Recheck Ordered Prescriptions (unrec ognized section and content) Prescription Sig Dispensed Refills Start Date End Da te oxyCODONE-acetaminophen (PERCOCET) 5-325 MG per tabletIndications:Jaw pain,History of tooth extraction, unspecified edentulism class Take 1 tablet by mouth every 6 hours as needed for Pain for up to 3 days. Intended supply: 3 days. Take lowest dose possible to manage pain 10 tablet 0 07/18/2021 07/21/2021 chlorhexidine (PERIDEX) 0.12 % solution Take 15 mLs by mouth 2 times daily for 14 days 420 mL 0 07/18/2021 08/01/2021 Scheduled Active and Recently Administ ered Medications (unrecognized section and content) Medication Order 07/16/2021 07/17/2021 07/18/2021 acetaminophen (TYLENOL) tablet 1,000 mg (COMPLETED) 1,000 mg, Oral, ONCE, On 07/18/21 at 1757, For 1 dose, Maximum dose of acetaminophen is 4000 mg from all sources in 24 hours. 180 (Given - Provid er: Shayla Nicole RN) ibuprofen (ADVIL;MOTRIN) tablet 600 mg (COMPLETED) 600 mg, Oral, ONCE, On 07/18/21 at 1757, For 1 dose, Do not crush or chew. 180 (Given - Provid er: Shayla Nicole RN) ondansetron (ZOFRAN-ODT) disintegrating tablet 4 mg (COMPLETED) 4 mg, Oral, ONCE, On 07/18/21 at 1840, For 1 dose 184 (Given - Provid er: Shayla Nicole RN) oxyCODONE-acetaminophen (PERCOCET) 5-325 MG per tablet 2 tablet (COMPLETED) 2 tablet, Oral, ONCE, On 07/18/21 at 1840, For 1 dose, Maximum dose of acetaminophen is 4000 mg from all sources in 24 hours. 1843 (Given - Provid er: Shayla Nicole RN) PRN Medication Order 07/16/2021 07/17/2021 07/18/2021 iopamidol (ISOVUE-370) 76 % injection 75 mL (COMPLETED) 75 mL, IntraVENous, IMG ONCE PRN, Other, Starting on 07/18/21 at 1804, For 1 dose 1908 (Given - Provid er: Britt Obrien) Care Teams (unrecognized sec tion and content) Salesperson Art Objects Relationship Specialty Start Date End Date Maile Norman PCP - General 05/09/16 Salesperson Art Objects Relationship Specialty Start Date End Date Maile Norman MD [address] [place] [address] PCP - General Internal Medicine 02/24/12 Salesperson Art Objects Relationship Specialty Start Date End Date Maile Norman MD [address] [place] [address] PCP - General Internal Medicine 02/24/12 Salesperson Art Objects Relationship Specialty Start Date End Date Maile Norman MD [address] [place] [address] PCP - General Internal Medicine 02/24/12 Salesperson Art Objects Relationship Specialty Start Date End Date Maile Norman MD [address] [place] [address] [place] [address] PCP - General Internal Medicine 02/24/12 Salesperson Art Objects Relationship Specialty Start Date End Date Maile Norman MD [address] [place] [address] [place] [address] PCP - General Internal Medicine 02/24/12 Salesperson Art Objects Relationship Specialty Start Date End Date Maile Norman MD [address] [place] [address] PCP - General Internal Medicine 02/24/12 Salesperson Art Objects Relationship Specialty Start Date End Date Maile Norman MD [facility] [place] [address] PCP - General Internal Medicine 02/24/12 Salesperson Art Objects Relationship Specialty Start Date End Date Maile Norman MD [address] [place] [address], [place] [address] PCP - General Internal Medicine 02/24/12 Salesperson Art Objects Relationship Specialty Start Date End Date Maile Norman MD [address] [place] [address], [place] [address] PCP - General Internal Medicine 02/24/12 Salesperson Art Objects Relationship Specialty Start Date End Date Maile Norman MD [address] [place] [address], [place] [address] PCP - General Internal Medicine 02/24/12 Salesperson Art Objects Relationship Specialty Start Date End Date Maile Norman MD [address] [place] [address], [place] [address] PCP - General Internal Medicine 02/24/12 Salesperson Art Objects Relationship Specialty Start Date End Date Maile Norman MD [address] [place] [address], [place] [address] PCP - General Internal Medicine 02/24/12 Salesperson Art Objects Relationship Specialty Start Date End Date Maile Norman MD [address] [place] [address], [place] [address] PCP - General Internal Medicine 02/24/12 Salesperson Art Objects Relationship Specialty Start Date End Date Maile Norman MD [address] [place] [address], [place] [address] PCP - General Internal Medicine 02/24/12 Salesperson Art Objects Relationship Specialty Start Date End Date Maile Norman MD [address] [place] [address], [place] [address] PCP - General Internal Medicine 02/24/12 Salesperson Art Objects Relationship Specialty Start Date End Date Maile Norman MD [address] [place] [place] [address] PCP - General Internal Medicine 02/24/12 Salesperson Art Objects Relationship Specialty Start Date End Date Maile Norman MD [address] [place] [address] PCP - General Internal Medicine 02/24/12 Salesperson Art Objects Relationship Specialty Start Date End Date Maile Norman MD [address] [place] [address] PCP - General Internal Medicine 02/24/12 Salesperson Art Objects Relationship Specialty Start Date End Date Maile Norman MD [address] [place] [address] PCP - General Internal Medicine 02/24/12 Salesperson Art Objects Relationship Specialty Start Date End Date Maile Norman MD [address] [place] [address] PCP - General Internal Medicine 02/24/12 Salesperson Art Objects Relationship Specialty Start Date End Date Maile Norman MD [address] [place] [address] PCP - General Internal Medicine 02/24/12 Salesperson Art Objects Relationship Specialty Start Date End Date Maile Norman MD [address] [place] [address] PCP - General Internal Medicine 02/24/12 Salesperson Art Objects Relationship Specialty Start Date End Date Maile Norman MD [address] [place] [address] PCP - General Internal Medicine 02/24/12 Salesperson Art Objects Relationship Specialty Start Date End Date Maile Norman MD [address] [place] [address] PCP - General Internal Medicine 02/24/12 Salesperson Art Objects Relationship Specialty Start Date End Date Maile Norman MD [address] [place] [address] PCP - General Internal Medicine 02/24/12 Salesperson Art Objects Relationship Specialty Start Date End Date Maile Norman MD [address] [place] [address] PCP - General Internal Medicine 02/24/12 Salesperson Art Objects Relationship Specialty Start Date End Date Maile Norman MD [address] [place] [address] PCP - General Internal Medicine 02/24/12 Salesperson Art Objects Relationship Specialty Start Date End Date Maile Norman MD [address] [place] [address] PCP - General Internal Medicine 02/24/12 Salesperson Art Objects Relationship Specialty Start Date End Date Maile Norman MD [address] [place] [address] PCP - General Internal Medicine 02/24/12 Salesperson Art Objects Relationship Specialty Start Date End Date Maile Norman MD [address] [place] [address] PCP - General Internal Medicine 02/24/12 Salesperson Art Objects Relationship Specialty Start Date End Date Maile Norman MD [address] [place] [address] PCP - General Internal Medicine 02/24/12 Salesperson Art Objects Relationship Specialty Start Date End Date Maile Norman MD [address] [place] [address] PCP - General Internal Medicine 02/24/12 Salesperson Art Objects Relationship Specialty Start Date End Date Maile Norman MD [address] [place] [address] PCP - General Internal Medicine 02/24/12 Salesperson Art Objects Relationship Specialty Start Date End Date Maile Norman MD [address] [place] [address] PCP - General Internal Medicine 02/24/12 Charles Elliott APRN.DISABILITY MANAGER [address] [place] [address] Referring Pain Management 05/18/23 Salesperson Art Objects Relationship Specialty Start Date End Date Maile Norman MD [address] [place] [address] PCP - General Internal Medicine 02/24/12 Charles Elliott APRN.DISABILITY MANAGER [address] [place] [address] Referring Pain Management 05/18/23 Salesperson Art Objects Relationship Specialty Start Date End Date Maile Norman MD [address] [place] [address] PCP - General Internal Medicine 02/24/12 Charles Elliott APRN.DISABILITY MANAGER [address] [place] [address] Referring Pain Management 05/18/23 Salesperson Art Objects Relationship Specialty Start Date End Date Maile Norman MD [address] [place] [address] PCP - General Internal Medicine 02/24/12 Charles Elliott APRN.DISABILITY MANAGER [address] [place] [address] Referring Pain Management 05/18/23 Salesperson Art Objects Relationship Specialty Start Date End Date Maile Norman MD [address] [place], [place] 682511 PCP - General Internal Medicine 02/24/12 Charles Elliott, TREE DRILLER.DISABILITY MANAGER [address] [place] [address] Referring Pain Management 05/18/23 Salesperson Art Objects Relationship Specialty Start Date End Date Maile Norman MD [address] [place] [address] PCP - General Internal Medicine 02/24/12 Charles Elliott APRN.DISABILITY MANAGER [address] [place] [address] Referring Pain Management 05/18/23 Salesperson Art Objects Relationship Specialty Start Date End Date Maile Norman MD [address] [place] [address] PCP - General Internal Medicine 02/24/12 ИванCharles shelton TREE DRILLER.DISABILITY MANAGER [address] [place] [address] Referring Pain Management 05/18/23 Salesperson Art Objects Relationship Specialty Start Date End Date Maile Norman MD [address] [place], [place] 567691 PCP - General Internal Medicine 02/24/12 Ив[facility]car[facility] mountainCharles, TREE DRILLER.DISABILITY MANAGER [address] [place] [address] Referring Pain Management 05/18/23 Salesperson Art Objects Relationship Specialty Start Date End Date Maile Norman MD [address] [place], [place] 700611 PCP - General Internal Medicine 02/24/12 Prec[facility]olin[facility] mountainCharles, TREE DRILLER.DISABILITY MANAGER [address] [place] [address] Referring Pain Management 05/18/23 Salesperson Art Objects Relationship Specialty Start Date End Date Maile Norman MD [address] [place] [address] PCP - General Internal Medicine 02/24/12 [facility] mountainCharles, TREE DRILLER.DISABILITY MANAGER [address] [place] [address] Referring Pain Management 05/18/23 Salesperson Art Objects Relationship Specialty Start Date End Date Maile Norman MD [address] [place] [address] PCP - General Internal Medicine 02/24/12 Prebish, Charles, TREE DRILLER.DISABILITY MANAGER [address] [place] [address] Referring Pain Management 05/18/23 Salesperson Art Objects Relationship Specialty Start Date End Date Maile Norman MD [address] [place], [place] 433541 PCP - General Internal Medicine 02/24/12 Prebish, Charles, TREE DRILLER.DISABILITY MANAGER [address] [place] [address] Referring Pain Management 05/18/23 Salesperson Art Objects Relationship Specialty Start Date End Date Maile Norman MD [address] [place], [place] 288871 PCP - General Internal Medicine 02/24/12 Prebish, Charles, TREE DRILLER.DISABILITY MANAGER [address] [place] [address] Referring Pain Management 05/18/23 Salesperson Art Objects Relationship Specialty Start Date End Date Maile Norman MD [address] [place], [place] 559611 PCP - General Internal Medicine 02/24/12 Prebish, Charles, TREE DRILLER.DISABILITY MANAGER [address] [place] [address] Referring Pain Management 05/18/23 Salesperson Art Objects Relationship Specialty Start Date End Date Maile Norman MD [address] [place], [place] 982261 PCP - General Internal Medicine 02/24/12 Prebish, Charles, TREE DRILLER.DISABILITY MANAGER [address] [place], [place] 167275 Referring Pain Management 05/18/23 Salesperson Art Objects Relationship Specialty Start Date End Date Maile Norman MD [address] [place], [place] 040201 PCP - General Internal Medicine 02/24/12 Prebish, Charles, TREE DRILLER.DISABILITY MANAGER [address] [place] [address] Referring Pain Management 05/18/23 Salesperson Art Objects Relationship Specialty Start Date End Date Maile Norman MD [address] [place], [place] 227271 PCP - General Internal Medicine 02/24/12 Prebish, Charles, TREE DRILLER.DISABILITY MANAGER [address] [place] [address] Referring Pain Management 05/18/23 Salesperson Art Objects Relationship Specialty Start Date End Date Maile Norman MD [address] [place], [place] 840941 PCP - General Internal Medicine 02/24/12 Prebish, Charles, TREE DRILLER.DISABILITY MANAGER [address] [place] [address] Referring Pain Management 05/18/23 Salesperson Art Objects Relationship Specialty Start Date End Date Maile Norman MD [address] [place], [place] 457311 PCP - General Internal Medicine 02/24/12 Prelucysh, Charles, TREE DRILLER.DISABILITY MANAGER [address] [place] [address] Referring Pain Management 05/18/23 Salesperson Art Objects Relationship Specialty Start Date End Date Maile Norman MD [address] [place], [place] 833881 PCP - General Internal Medicine 02/24/12 Prelucysh, Charles, TREE DRILLER.DISABILITY MANAGER [address] [place] [address] Referring Pain Management 05/18/23 Salesperson Art Objects Relationship Specialty Start Date End Date Maile Norman MD [address] [place], [place] 807851 PCP - General Internal Medicine 02/24/12 Prelucysh, Charles, TREE DRILLER.DISABILITY MANAGER [address] [place] [address] Referring Pain Management 05/18/23 Salesperson Art Objects Relationship Specialty Start Date End Date Maile Norman MD [address] [place], [place] 874421 PCP - General Internal Medicine 02/24/12 Prebish, Charles, TREE DRILLER.DISABILITY MANAGER [address] [place] [address] Referring Pain Management 05/18/23 Salesperson Art Objects Relationship Specialty Start Date End Date Maile Norman MD [address] [place], [place] 601361 PCP - General Internal Medicine 02/24/12 Prebish, Charles, TREE DRILLER.DISABILITY MANAGER [address] [place] [address] Referring Pain Management 05/18/23 Salesperson Art Objects Relationship Specialty Start Date End Date Maile Norman MD [address] [place], [place] 577651 PCP - General Internal Medicine 02/24/12 Prebish, Charles, TREE DRILLER.DISABILITY MANAGER [address] [place] [address] Referring Pain Management 05/18/23 Salesperson Art Objects Relationship Specialty Start Date End Date Maile Norman MD [address] [place], [place] 828311 PCP - General Internal Medicine 02/24/12 Prebish, Charles, TREE DRILLER.DISABILITY MANAGER [address] [place] [address] Referring Pain Management 05/18/23 Salesperson Art Objects Relationship Specialty Start Date End Date Maile Norman MD [address] [place] [address] PCP - General Internal Medicine 02/24/12 Prebish, Charles, TREE DRILLER.DISABILITY MANAGER [address] [place] [address] Referring Pain Management 05/18/23 Salesperson Art Objects Relationship Specialty Start Date End Date Maile Norman MD [address] [place], [place] 469471 PCP - General Internal Medicine 02/24/12 Prebish, Charles, TREE DRILLER.DISABILITY MANAGER [address] [place] [address] Referring Pain Management 05/18/23 Salesperson Art Objects Relationship Specialty Start Date End Date Maile Norman MD [address] [place], [place] 495731 PCP - General Internal Medicine 02/24/12 Prebish, Charles, TREE DRILLER.DISABILITY MANAGER [address] [place] [address] Referring Pain Management 05/18/23 Salesperson Art Objects Relationship Specialty Start Date End Date Maile Norman MD [address] [place], [place] 339321 PCP - General Internal Medicine 02/24/12 Prebish, Charles, TREE DRILLER.DISABILITY MANAGER [address] [place] [address] Referring Pain Management 05/18/23 Salesperson Art Objects Relationship Specialty Start Date End Date Maile Norman MD [address] [place], [place] 415121 PCP - General Internal Medicine 02/24/12 Prebish, Charles, TREE DRILLER.DISABILITY MANAGER [address] [place] [address] Referring Pain Management 05/18/23 Salesperson Art Objects Relationship Specialty Start Date End Date Maile Norman MD [address] [place], [place] 553221 PCP - General Internal Medicine 02/24/12 Prebish, Charles, TREE DRILLER.DISABILITY MANAGER [address] [place] [address] Referring Pain Management 05/18/23 Salesperson Art Objects Relationship Specialty Start Date End Date Maile Norman MD [address] [place], [place] 015421 PCP - General Internal Medicine 02/24/12 Presh, Charles, TREE DRILLER.DISABILITY MANAGER [address] [place] [address] Referring Pain Management 05/18/23 Salesperson Art Objects Relationship Specialty Start Date End Date Maile Norman MD [address] [place] [address] PCP - General Internal Medicine 02/24/12 Salesperson Art Objects Relationship Specialty Start Date End Date Maile Norman MD [address] [place], [place] 645231 PCP - General Internal Medicine 02/24/12 Salesperson Art Objects Relationship Specialty Start Date End Date Maile Norman MD [address] [place], [place] 065591 PCP - General Internal Medicine 02/24/12 Prebish, Charles, TREE DRILLER.DISABILITY MANAGER [address] [place] [address] Referring Pain Management 05/18/23 Salesperson Art Objects Relationship Specialty Start Date End Date Maile Norman MD [address] [place], [place] 203991 PCP - General Internal Medicine 02/24/12 Prebish, Charles, TREE DRILLER.DISABILITY MANAGER [address] [place] [address] Referring Pain Management 05/18/23 Salesperson Art Objects Relationship Specialty Start Date End Date Maile Norman MD [address] [place], [place] 686811 PCP - General Internal Medicine 02/24/12 Presh, Charles, TREE DRILLER.DISABILITY MANAGER [address] [place] [address] Referring Pain Management 05/18/23 Salesperson Art Objects Relationship Specialty Start Date End Date Maile Norman MD [address] [place] [address] PCP - General Internal Medicine 02/24/12 Prebish, Charles, TREE DRILLER.DISABILITY MANAGER [address] [place] [address] Referring Pain Management 05/18/23 Salesperson Art Objects Relationship Specialty Start Date End Date Maile Norman MD [address] [place], [place] 571701 PCP - General Internal Medicine 02/24/12 Charles Elliott APRN.DISABILITY MANAGER [address] [place] [address] Referring Pain Management 05/18/23 Salesperson Art Objects Relationship Specialty Start Date End Date Maile Norman MD [address] [place], [place] 464401 PCP - General Internal Medicine 02/24/12 Charles Elliott APRN.DISABILITY MANAGER [address] [place] [address] Referring Pain Management 05/18/23 Salesperson Art Objects Relationship Specialty Start Date End Date Maile Norman MD [address] [place] [address] PCP - General Internal Medicine 02/24/12 Charles Elliott APRN.DISABILITY MANAGER [address] [place] [address] Referring Pain Management 05/18/23 Salesperson Art Objects Relationship Specialty Start Date End Date Maile Norman MD [address] [place] [address] PCP - General Internal Medicine 02/24/12 Charles Elliott APRN.DISABILITY MANAGER [address] [place] [address] Referring Pain Management 05/18/23 Salesperson Art Objects Relationship Specialty Start Date End Date Maile Norman MD [address] [place], [place] 958551 PCP - General Internal Medicine 02/24/12 Charles Elliott APRN.DISABILITY MANAGER [address] [place] [address] Referring Pain Management 05/18/23 Salesperson Art Objects Relationship Specialty Start Date End Date Maile Norman MD [address] [place], [place] 279401 PCP - General Internal Medicine 02/24/12 Charles Elliott TREE DRILLER.DISABILITY MANAGER [address] [place] [address] Referring Pain Management 05/18/23 Salesperson Art Objects Relationship Specialty Start Date End Date Maile Norman MD [address] [place], [place] 627801 PCP - General Internal Medicine 02/24/12 Charles Elliott, TREE DRILLER.DISABILITY MANAGER [address] [place] [address] Referring Pain Management 05/18/23 Salesperson Art Objects Relationship Specialty Start Date End Date Maile Norman MD [address] [place], [place] 588521 PCP - General Internal Medicine 02/24/12 Charles Elliott TREE DRILLER.DISABILITY MANAGER [address] [place] [address] Referring Pain Management 05/18/23 Karen Gaspar TREE DRILLER.MEDICAL CODING TECHNICIAN [address] [place] [address] Professional Nursing Assistant Internal Medicine 06/04/24 Sam Khan APRN.DISABILITY MANAGER [address] [place] [address] Professional Nursing Assistant Internal Medicine 06/04/24 Salesperson Art Objects Relationship Specialty Start Date End Date Maile Norman MD [address] [place] [address] PCP - General Internal Medicine 02/24/12 Charles Elliott APRN.DISABILITY MANAGER [address] [place], [place] [id number] Referring Pain Management 05/18/23 Karen Gaspar APRN.MEDICAL CODING TECHNICIAN [address] [place] [address] Professional Nursing Assistant Internal Medicine 06/04/24 Sam Khan APRN.DISABILITY MANAGER [address] [place] [address] Professional Nursing Assistant Internal Medicine 06/04/24 Salesperson Art Objects Relationship Specialty Start Date End Date Maile Norman MD [address] [place], [place] 089541 PCP - General Internal Medicine 02/24/12 Charles Elliott APRN.DISABILITY MANAGER [address] [place], [place] 289255 Referring Pain Management 05/18/23 Karen Gaspar APRN.MEDICAL CODING TECHNICIAN [address] [place], [place] 445381 Professional Nursing Assistant Internal Medicine 06/04/24 Sam Khan APRN.DISABILITY MANAGER [address] [place], [place] 065081 Professional Nursing Assistant Internal Medicine 06/04/24 Salesperson Art Objects Relationship Specialty Start Date End Date Maile Norman MD [address] [place] [address] PCP - General Internal Medicine 02/24/12 Charles Elliott APRN.DISABILITY MANAGER [address] [place], [place] [id number] Referring Pain Management 05/18/23 Karen Gaspar TREE DRILLER.MEDICAL CODING TECHNICIAN [address] [place] [address] Professional Nursing Assistant Internal Medicine 06/04/24 Sam Khan APRN.DISABILITY MANAGER [address] [place], [place] 550521 Professional Nursing Assistant Internal Medicine 06/04/24 Salesperson Art Objects Relationship Specialty Start Date End Date Maile Norman MD [address] [place], [place] 271311 PCP - General Internal Medicine 02/24/12 Charles Elliott, TREE DRILLER.DISABILITY MANAGER [address] [place], [place] [id number] Referring Pain Management 05/18/23 Karen Gaspar, TREE DRILLER.MEDICAL CODING TECHNICIAN [address] [place], [place] 621771 Professional Nursing Assistant Internal Medicine 06/04/24 Sam Khan APRN.DISABILITY MANAGER [address] [place], [place] 472141 [facility] Internal Medicine 06/04/24 Salesperson Art Objects Relationship Specialty Start Date End Date Maile Norman MD [address] [place], [place] 972611 PCP - General Internal Medicine 02/24/12 Charles Elliott, TREE DRILLER.DISABILITY MANAGER [address] [place], [place] [id number] Referring Pain Management 05/18/23 Karen Gaspar TREE DRILLER.MEDICAL CODING TECHNICIAN [address] [place], [place] 317051 [facility] Internal Medicine 06/04/24 Sam Khan APRN.DISABILITY MANAGER [address] [place], [place] 751981 [facility] Internal Medicine 06/04/24 Salesperson Art Objects Relationship Specialty Start Date End Date Maile Norman MD [address] [place], [place] 706771 PCP - General Internal Medicine 02/24/12 Charles Elliott, TREE DRILLER.DISABILITY MANAGER [address] [place], [place] [id number] Referring Pain Management 05/18/23 Karen Gaspar, TREE DRILLER.MEDICAL CODING TECHNICIAN [address] [place], [place] 985621 Professional Nursing Assistant Internal Medicine 06/04/24 Sam Khan APRN.DISABILITY MANAGER [address] [place], [place] 820011 Professional Nursing Assistant Internal Medicine 06/04/24 Salesperson Art Objects Relationship Specialty Start Date End Date Maile Norman MD [address] [place], [place] 976511 PCP - General Internal Medicine 02/24/12 Charles Elliott APRN.DISABILITY MANAGER [address] [place], [place] [id number] Referring Pain Management 05/18/23 Karen Gaspar APRN.MEDICAL CODING TECHNICIAN [address] [place], [place] 585981 Professional Nursing Assistant Internal Medicine 06/04/24 Sam Khan APRN.DISABILITY MANAGER [address] [place] [address] 145581 Professional Nursing Assistant Internal Medicine 06/04/24 Salesperson Art Objects Relationship Specialty Start Date End Date Maile Norman MD [address] [place], [place] 359911 PCP - General Internal Medicine 02/24/12 Charles Elliott, TREE DRILLER.DISABILITY MANAGER [address] [place], [place] [id number] Referring Pain Management 05/18/23 Karen Gaspar APRN.MEDICAL CODING TECHNICIAN [address] [place] [address] Professional Nursing Assistant Internal Medicine 06/04/24 Sam Khan APRN.DISABILITY MANAGER [address] [place], [place] 833691 Professional Nursing Assistant Internal Medicine 06/04/24 Salesperson Art Objects Relationship Specialty Start Date End Date Maile Norman MD [address] [place], [place] 197271 PCP - General Internal Medicine 02/24/12 Charles Elliott APRN.DISABILITY MANAGER [address] [place], [place] 016325 Referring Pain Management 05/18/23 Karen Gaspar APRN.MEDICAL CODING TECHNICIAN [address] [place] [address] [id number] Professional Nursing Assistant Internal Medicine 06/04/24 Sam Khan APRN.DISABILITY MANAGER [address] [place] [address] [id number] Professional Nursing Assistant Internal Medicine 06/04/24 Salesperson Art Objects Relationship Specialty Start Date End Date Maile Norman MD [facility] [place], [place] 114091 PCP - General Internal Medicine 02/24/12 Charles Elliott APRN.DISABILITY MANAGER [facility] [place] [address] Referring Pain Management 05/18/23 Karen Gaspar APRN.MEDICAL CODING TECHNICIAN [facility] [place], [place] 974361 Professional Nursing Assistant Internal Medicine 06/04/24 Sam Khan APRN.DISABILITY MANAGER [address] [place] [address] [id number] Professional Nursing Assistant Internal Medicine 06/04/24 Salesperson Art Objects Relationship Specialty Start Date End Date Maile Norman MD [address] [place], [place] 453091 PCP - General Internal Medicine 02/24/12 Charles Elliott APRN.DISABILITY MANAGER [address] [place] [address] Referring Pain Management 05/18/23 Karen Gaspar APRN.MEDICAL CODING TECHNICIAN [address] [place] [address] Professional Nursing Assistant Internal Medicine 06/04/24 Sam Khan TREE DRILLER.DISABILITY MANAGER [address] [place] [address] Professional Nursing Assistant Internal Medicine 06/04/24 Salesperson Art Objects Relationship Specialty Start Date End Date Maile Norman MD [address] [place], [place] 882051 PCP - General Internal Medicine 02/24/12 Charles Elliott APRN.DISABILITY MANAGER [address] [place] [address] Referring Pain Management 05/18/23 Karen Gaspar APRN.MEDICAL CODING TECHNICIAN [address] [place], [place] 194371 Professional Nursing Assistant Internal Medicine 06/04/24 Sam Khan TREE DRILLER.DISABILITY MANAGER [address] [place], [place] 803781 Professional Nursing Assistant Internal Medicine 06/04/24 Salesperson Art Objects Relationship Specialty Start Date End Date Maile Norman MD [address] [place], [place] 104271 PCP - General Internal Medicine 02/24/12 Charles Elliott, TREE DRILLER.DISABILITY MANAGER [address] [place] [address] Referring Pain Management 05/18/23 Karen Gaspar, TREE DRILLER.MEDICAL CODING TECHNICIAN [address] [place], [place] 273451 Professional Nursing Assistant Internal Medicine 06/04/24 Sam Khan TREE DRILLER.DISABILITY MANAGER [address] [place], [place] 860701 Professional Nursing Assistant Internal Medicine 06/04/24 Salesperson Art Objects Relationship Specialty Start Date End Date Maile Norman MD [address] [place], [place] 028641 PCP - General Internal Medicine 02/24/12 Charles Elliott, TREE DRILLER.DISABILITY MANAGER [address] [place] [address] Referring Pain Management 05/18/23 Karen Gaspar, TREE DRILLER.MEDICAL CODING TECHNICIAN [address] [place], [place] 231451 Professional Nursing Assistant Internal Medicine 06/04/24 Sam Khan TREE DRILLER.DISABILITY MANAGER [address] [place], [place] 703771 Professional Nursing Assistant Internal Medicine 06/04/24 Salesperson Art Objects Relationship Specialty Start Date End Date Maile Norman MD [address] [place], [place] 869291 PCP - General Internal Medicine 02/24/12 Charles Elliott APRN.DISABILITY MANAGER [address] [place] [address] Referring Pain Management 05/18/23 Karen Gaspar, TREE DRILLER.MEDICAL CODING TECHNICIAN [address] [place], [place] 684021 Professional Nursing Assistant Internal Medicine 06/04/24 Sam Khan TREE DRILLER.DISABILITY MANAGER [address] [place], [place] 234081 Professional Nursing Assistant Internal Medicine 06/04/24 Salesperson Art Objects Relationship Specialty Start Date End Date Maile Norman MD [address] [place], [place] 247971 PCP - General Internal Medicine 02/24/12 Charles Elliott, TREE DRILLER.DISABILITY MANAGER [address] [place] [address] Referring Pain Management 05/18/23 Karen Gaspar, TREE DRILLER.MEDICAL CODING TECHNICIAN [address] [place] [address] Professional Nursing Assistant Internal Medicine 06/04/24 Sam Khan TREE DRILLER.DISABILITY MANAGER [address] [place], [place] 554761 Professional Nursing Assistant Internal Medicine 06/04/24 Salesperson Art Objects Relationship Specialty Start Date End Date Maile Norman MD [address] [facility] [place] [address] PCP - General Internal Medicine 02/24/12 Charles Elliott APRN.DISABILITY MANAGER [address] [place] [address] Referring Pain Management 05/18/23 Karen Gaspar APRN.MEDICAL CODING TECHNICIAN [address] [place] [address] Professional Nursing Assistant Internal Medicine 06/04/24 Sam Khan APRN.DISABILITY MANAGER [address] [place] [address] Professional Nursing Assistant Internal Medicine 06/04/24 Salesperson Art Objects Relationship Specialty Start Date End Date Maile Norman MD [address] [place] [address] PCP - General Internal Medicine 02/24/12 Charles Elliott APRN.DISABILITY MANAGER [address] [place] [address] Referring Pain Management 05/18/23 Karen Gaspar APRN.MEDICAL CODING TECHNICIAN [address] [facility] [place] [address] Professional Nursing Assistant Internal Medicine 06/04/24 Sam Khan APRN.DISABILITY MANAGER [address] [facility] [place] [address] Professional Nursing Assistant Internal Medicine 09/18/24 Salesperson Art Objects Relationship Specialty Start Date End Date Maile Norman MD [address] [place] [address] PCP - General Internal Medicine 02/24/12 Charles Elliott APRN.DISABILITY MANAGER [address] [place] [address] Referring Pain Management 05/18/23 Karen Gaspar APRN.MEDICAL CODING TECHNICIAN [address] [place] [address] Professional Nursing Assistant Internal Medicine 06/04/24 Sam Khan APRN.DISABILITY MANAGER [address] [place] [address] Professional Nursing Assistant Internal Medicine 09/18/24 Salesperson Art Objects Relationship Specialty Start Date End Date Maile Norman MD [address] [place] [address] PCP - General Internal Medicine 02/24/12 Charles Elliott APRN.DISABILITY MANAGER [address] [place] [address] Referring Pain Management 05/18/23 Karen Gaspar APRN.MEDICAL CODING TECHNICIAN [address] [place] [address] Professional Nursing Assistant Internal Medicine 06/04/24 Sam Khan TREE DRILLER.DISABILITY MANAGER [address] [place], [place] 581521 Professional Nursing Assistant Internal Medicine 09/18/24 Salesperson Art Objects Relationship Specialty Start Date End Date Maile Norman MD [address] [place] [address] PCP - General Internal Medicine 02/24/12 Charles Elliott APRN.DISABILITY MANAGER [address] [place] [address] Referring Pain Management 05/18/23 Karen Gaspar APRN.MEDICAL CODING TECHNICIAN [address] [place], [place] 868721 Professional Nursing Assistant Internal Medicine 06/04/24 Sam Khan TREE DRILLER.DISABILITY MANAGER [address] [place] [address] Professional Nursing Assistant Internal Medicine 09/18/24 Salesperson Art Objects Relationship Specialty Start Date End Date Maile Norman MD [address] [place] [address] PCP - General Internal Medicine 02/24/12 Charles Elliott APRN.DISABILITY MANAGER [address] [place] [address] Referring Pain Management 05/18/23 Karen Gaspar APRN.MEDICAL CODING TECHNICIAN [address] [place] [address] Professional Nursing Assistant Internal Medicine 06/04/24 Sam Khan TREE DRILLER.DISABILITY MANAGER [address] [place], [place] 459381 Professional Nursing Assistant Internal Medicine 09/18/24 Salesperson Art Objects Relationship Specialty Start Date End Date Maile Norman MD [address] [place] [address] PCP - General Internal Medicine 02/24/12 Charles Elliott APRN.DISABILITY MANAGER [address] [place] [address] Referring Pain Management 05/18/23 Karen Gaspar APRN.MEDICAL CODING TECHNICIAN [address] [place] [address] Professional Nursing Assistant Internal Medicine 06/04/24 Sam Khan APRN.DISABILITY MANAGER [address] [place] [address] Professional Nursing Assistant Internal Medicine 09/18/24 Salesperson Art Objects Relationship Specialty Start Date End Date Maile Norman MD [address] [facility] [place] [address] PCP - General Internal Medicine 02/24/12 Charles Elliott APRN.DISABILITY MANAGER [address] [place] [address] Referring Pain Management 05/18/23 Karen Gaspar APRN.MEDICAL CODING TECHNICIAN [address] [place] [address] Professional Nursing Assistant Internal Medicine 06/04/24 Sam Khan APRN.DISABILITY MANAGER [address] [place] [place] [address] Professional Nursing Assistant Internal Medicine 09/18/24 Salesperson Art Objects Relationship Specialty Start Date End Date Maile Norman MD [address] [facility] [place] [address] PCP - General Internal Medicine 02/24/12 Charles Elliott APRN.DISABILITY MANAGER [address] [place] [address] Referring Pain Management 05/18/23 Karen Gaspar APRN.MEDICAL CODING TECHNICIAN [address] [facility] [place] [address] Professional Nursing Assistant Internal Medicine 06/04/24 Sam Khan APRN.DISABILITY MANAGER [address] [place] [address] Professional Nursing Assistant Internal Medicine 09/18/24 Salesperson Art Objects Relationship Specialty Start Date End Date Maile Norman MD [address] [place] [address] PCP - General Internal Medicine 02/24/12 Charles Elliott, TREE DRILLER.DISABILITY MANAGER [address] [place] [address] Referring Pain Management 05/18/23 Karen Gaspar, RIGOBERTO.MEDICAL CODING TECHNICIAN [address] [place] [address] Professional Nursing Assistant Internal Medicine 06/04/24 Sam Khan TREE DRILLER.DISABILITY MANAGER [address] [place] [address] Professional Nursing Assistant Internal Medicine 09/18/24 Salesperson Art Objects Relationship Specialty Start Date End Date Maile Norman MD [address] [place] [address] PCP - General Internal Medicine 02/24/12 Charles Elliott, TREE DRILLER.DISABILITY MANAGER [address] [place] [address] Referring Pain Management 05/18/23 Karen Gaspar APRN.MEDICAL CODING TECHNICIAN [address] [place] [address] Professional Nursing Assistant Internal Medicine 06/04/24 Sam Khan APRN.DISABILITY MANAGER [address] [place] [address] Professional Nursing Assistant Internal Medicine 09/18/24 Salesperson Art Objects Relationship Specialty Start Date End Date Maile Norman MD [address] [place], [place] 130961 PCP - General Internal Medicine 02/24/12 Charles Elliott APRN.DISABILITY MANAGER [address] [place] [address] Referring Pain Management 05/18/23 Karen Gaspar APRN.MEDICAL CODING TECHNICIAN [address] [place] [address] Professional Nursing Assistant Internal Medicine 06/04/24 Sam Khan APRN.DISABILITY MANAGER [address] [place] [address] Professional Nursing Assistant Internal Medicine 09/18/24 Salesperson Art Objects Relationship Specialty Start Date End Date Maile Norman MD [address] [place], [place] 346701 PCP - General Internal Medicine 02/24/12 Charles Elliott APRN.DISABILITY MANAGER [address] [place] [address] Referring Pain Management 05/18/23 Karen Gaspar APRN.MEDICAL CODING TECHNICIAN [address] [place] [address] Professional Nursing Assistant Internal Medicine 06/04/24 Sam Khan APRN.DISABILITY MANAGER [address] [place] [address] Professional Nursing Assistant Internal Medicine 09/18/24 Salesperson Art Objects Relationship Specialty Start Date End Date Maile Norman MD [address] [place], [place] 294101 PCP - General Internal Medicine 02/24/12 Charles Elliott APRN.DISABILITY MANAGER [address] [place] [address] Referring Pain Management 05/18/23 Karen Gaspar APRN.MEDICAL CODING TECHNICIAN [address] [place] [address] Professional Nursing Assistant Internal Medicine 06/04/24 Sam Khan APRN.DISABILITY MANAGER [address] [place] [address] Professional Nursing Assistant Internal Medicine 09/18/24 Salesperson Art Objects Relationship Specialty Start Date End Date Maile Norman MD [address] [place], [place] 665601 PCP - General Internal Medicine 02/24/12 Charles Elliott APRN.DISABILITY MANAGER [address] [place] [address] Referring Pain Management 05/18/23 Karen Gaspar TREE DRILLER.MEDICAL CODING TECHNICIAN [address] [place], [place] 285181 Professional Nursing Assistant Internal Medicine 06/04/24 Sam Khan TREE DRILLER.DISABILITY MANAGER [address] [place], [place] 873701 Professional Nursing Assistant Internal Medicine 09/18/24 Salesperson Art Objects Relationship Specialty Start Date End Date Maile Norman MD [address] [place], [place] 645411 PCP - General Internal Medicine 02/24/12 Charles Elliott APRN.DISABILITY MANAGER [address] [place], [place] 721155 Referring Pain Management 05/18/23 Karen Gaspar TREE DRILLER.MEDICAL CODING TECHNICIAN [address] [place], [place] 082811 [facility] Internal Medicine 06/04/24 Sam Khan TREE DRILLER.DISABILITY MANAGER [address] [place], [place] 618641 [facility] Internal Medicine 09/18/24 Salesperson Art Objects Relationship Specialty Start Date End Date Maile Norman MD [address] [place], [place] 856561 PCP - General Internal Medicine 02/24/12 Charles Elliott, TREE DRILLER.DISABILITY MANAGER [address] [place] [address] Referring Pain Management 05/18/23 Karen Gaspar APRN.MEDICAL CODING TECHNICIAN [address] [place] [address] Professional Nursing Assistant Internal Medicine 06/04/24 Sam Khan TREE DRILLER.DISABILITY MANAGER [address] [place] [address] Professional Nursing Assistant Internal Medicine 09/18/24 Salesperson Art Objects Relationship Specialty Start Date End Date Maile Norman MD [address] [place], [place] 875801 PCP - General Internal Medicine 02/24/12 Charles Elliott APRN.DISABILITY MANAGER [address] [place], [place] 37816685 Referring Pain Management 05/18/23 Karen Gaspar TREE DRILLER.MEDICAL CODING TECHNICIAN [address] [place] [address] Professional Nursing Assistant Internal Medicine 06/04/24 Sam Khan TREE DRILLER.DISABILITY MANAGER [address] [place] [address] Professional Nursing Assistant Internal Medicine 09/18/24 Salesperson Art Objects Relationship Specialty Start Date End Date Maile Norman MD [address] [place] [address] PCP - General Internal Medicine 02/24/12 Charles Elliott APRN.DISABILITY MANAGER [address] [place] [address] Referring Pain Management 05/18/23 Karen Gaspar APRN.MEDICAL CODING TECHNICIAN [address] [place] [address] Professional Nursing Assistant Internal Medicine 06/04/24 Sam Khan APRN.DISABILITY MANAGER [address] [place] [address] Professional Nursing Assistant Internal Medicine 09/18/24 Salesperson Art Objects Relationship Specialty Start Date End Date Maile Norman MD [address] [place] [address] PCP - General Internal Medicine 02/24/12 Charles Elliott APRN.DISABILITY MANAGER [address] [place], [place] 726855 Referring Pain Management 05/18/23 Sam Khan APRN.DISABILITY MANAGER [address] [place] [address] Professional Nursing Assistant Internal Medicine 09/18/24 Karen Gaspar APRN.MEDICAL CODING TECHNICIAN [address] [place] [address] Professional Nursing Assistant Internal Medicine 11/14/24 Salesperson Art Objects Relationship Specialty Start Date End Date Maile Norman MD [address] [place] [address] PCP - General Internal Medicine 02/24/12 Charles Elliott APRN.DISABILITY MANAGER [address] [place] [address] Referring Pain Management 05/18/23 Sam Khan APRN.DISABILITY MANAGER [address] [place] [address] Professional Nursing Assistant Internal Medicine 09/18/24 Karen Gaspar APRN.MEDICAL CODING TECHNICIAN [address] [facility] [address] Professional Nursing Assistant Internal Medicine 11/14/24 Salesperson Art Objects Relationship Specialty Start Date End Date Maile Norman MD [address] [facility] [place] [address] PCP - General Internal Medicine 02/24/12 Charles Elliott APRN.DISABILITY MANAGER [address] [place] [address] Referring Pain Management 05/18/23 Sam Khan APRN.DISABILITY MANAGER [address] [place] [address] Professional Nursing Assistant Internal Medicine 09/18/24 Karen Gaspar APRN.MEDICAL CODING TECHNICIAN [address] [facility] [place] [address] Professional Nursing Assistant Internal Medicine 11/14/24 Salesperson Art Objects Relationship Specialty Start Date End Date Maile Norman MD [address] [facility] [place] [address] PCP - General Internal Medicine 02/24/12 Charles Elliott APRN.DISABILITY MANAGER [address] [place] [address] Referring Pain Management 05/18/23 Sam Khan APRN.DISABILITY MANAGER [address] [place] [address] Professional Nursing Assistant Internal Medicine 09/18/24 Karen Gaspar, TREE DRILLER.MEDICAL CODING TECHNICIAN [address] [place], [place] 021891 Professional Nursing Assistant Internal Medicine 11/14/24 Salesperson Art Objects Relationship Specialty Start Date End Date Maile Norman MD [address] [place], [place] 290981 PCP - General Internal Medicine 02/24/12 Charles Elliott TREE DRILLER.DISABILITY MANAGER [address] [place], [place] [id number] Referring Pain Management 05/18/23 Sam Khan TREE DRILLER.DISABILITY MANAGER [address] [place] [address] Professional Nursing Assistant Internal Medicine 09/18/24 Karen Gaspar, TREE DRILLER.MEDICAL CODING TECHNICIAN [address] [place], [place] 051061 Professional Nursing Assistant Internal Medicine 11/14/24 Salesperson Art Objects Relationship Specialty Start Date End Date Maile Norman MD [address] [place], [place] 344721 PCP - General Internal Medicine 02/24/12 Charles Elliott, TREE DRILLER.DISABILITY MANAGER [address] [place] [address] Referring Pain Management 05/18/23 Sam Khan TREE DRILLER.DISABILITY MANAGER [address] [place], [place] 696671 Professional Nursing Assistant Internal Medicine 09/18/24 Karen Gaspar, TREE DRILLER.MEDICAL CODING TECHNICIAN [address] [place], [place] 180331 [facility] 11/14/24 Salesperson Art Objects Relationship Specialty Start Date End Date Maile Norman MD [address] [place], [place] 025451 PCP - General Internal Medicine 02/24/12 Charles Elliott APRN.DISABILITY MANAGER [address] [place], [place] 123745 Referring Pain Management 05/18/23 Sam Khan TREE DRILLER.DISABILITY MANAGER [address] [place], [place] 929581 Professional Nursing Assistant Internal Medicine 09/18/24 Karen Gaspar, TREE DRILLER.MEDICAL CODING TECHNICIAN [address] [place], [place] 354421 [facility] 11/14/24 Source Comments (unrecognize d section and content) In the event this informatio n is protected by the Federal Confidentiality of Alcohol and Drug Abuse Patient Records regulations: The Federal rules restrict any use of the information to criminally investigate or prosecute any alcohol or drug abuse patient.[facility] Center[facility] the event this information is protected by the Federal Confidentiality of Alcohol and Drug Abuse Patient Records regulations: The Federal rules restrict any use of the information to criminally investigate or prosecute any alcohol or drug abuse patient.[facility] Center[facility] the event this information is protected by the Federal Confidentiality of Alcohol and Drug Abuse Patient Records regulations: The Federal rules restrict any use of the information to criminally investigate or prosecute any alcohol or drug abuse patient.[facility] Center[facility] the event this information is protected by the Federal Confidentiality of Alcohol and Drug Abuse Patient Records regulations: The Federal rules restrict any use of the information to criminally investigate or prosecute any alcohol or drug abuse patient.[facility] CenterIn the event this information is protected by the Federal Confidentiality of Alcohol and Drug Abuse Patient Records regulations: The Federal rules restrict any use of the information to criminally investigate or prosecute any alcohol or drug abuse patient.[facility] CenterIn the event this information is protected by the Federal Confidentiality of Alcohol and Drug Abuse Patient Records regulations: The Federal rules restrict any use of the information to criminally investigate or prosecute any alcohol or drug abuse patient.[facility] CenterIn the event this information is protected by the Federal Confidentiality of Alcohol and Drug Abuse Patient Records regulations: The Federal rules restrict any use of the information to criminally investigate or prosecute any alcohol or drug abuse patient.[facility] CenterIn the event this information is protected by the Federal Confidentiality of Alcohol and Drug Abuse Patient Records regulations: The Federal rules restrict any use of the information to criminally investigate or prosecute any alcohol or drug abuse patient.[facility] CenterIn the event this information is protected by the Federal Confidentiality of Alcohol and Drug Abuse Patient Records regulations: The Federal rules restrict any use of the information to criminally investigate or prosecute any alcohol or drug abuse patient.[facility] CenterIn the event this information is protected by the Federal Confidentiality of Alcohol and Drug Abuse Patient Records regulations: The Federal rules restrict any use of the information to criminally investigate or prosecute any alcohol or drug abuse patient.[facility] CenterIn the event this information is protected by the Federal Confidentiality of Alcohol and Drug Abuse Patient Records regulations: The Federal rules restrict any use of the information to criminally investigate or prosecute any alcohol or drug abuse patient.[facility] CenterIn the event this information is protected by the Federal Confidentiality of Alcohol and Drug Abuse Patient Records regulations: The Federal rules restrict any use of the information to criminally investigate or prosecute any alcohol or drug abuse patient.[facility] CenterIn the event this information is protected by the Federal Confidentiality of Alcohol and Drug Abuse Patient Records regulations: The Federal rules restrict any use of the information to criminally investigate or prosecute any alcohol or drug abuse patient.[facility] CenterIn the event this information is protected by the Federal Confidentiality of Alcohol and Drug Abuse Patient Records regulations: The Federal rules restrict any use of the information to criminally investigate or prosecute any alcohol or drug abuse patient.[facility] CenterIn the event this information is protected by the Federal Confidentiality of Alcohol and Drug Abuse Patient Records regulations: The Federal rules restrict any use of the information to criminally investigate or prosecute any alcohol or drug abuse patient.[facility] CenterIn the event this information is protected by the Federal Confidentiality of Alcohol and Drug Abuse Patient Records regulations: The Federal rules restrict any use of the information to criminally investigate or prosecute any alcohol or drug abuse patient.[facility] CenterIn the event this information is protected by the Federal Confidentiality of Alcohol and Drug Abuse Patient Records regulations: The Federal rules restrict any use of the information to criminally investigate or prosecute any alcohol or drug abuse patient.[facility] CenterIn the event this information is protected by the Federal Confidentiality of Alcohol and Drug Abuse Patient Records regulations: The Federal rules restrict any use of the information to criminally investigate or prosecute any alcohol or drug abuse patient.[facility] CenterIn the event this information is protected by the Federal Confidentiality of Alcohol and Drug Abuse Patient Records regulations: The Federal rules restrict any use of the information to criminally investigate or prosecute any alcohol or drug abuse patient.[facility] CenterIn the event this information is protected by the Federal Confidentiality of Alcohol and Drug Abuse Patient Records regulations: The Federal rules restrict any use of the information to criminally investigate or prosecute any alcohol or drug abuse patient.[facility] CenterIn the event this information is protected by the Federal Confidentiality of Alcohol and Drug Abuse Patient Records regulations: The Federal rules restrict any use of the information to criminally investigate or prosecute any alcohol or drug abuse patient.[facility] CenterIn the event this information is protected by the Federal Confidentiality of Alcohol and Drug Abuse Patient Records regulations: The Federal rules restrict any use of the information to criminally investigate or prosecute any alcohol or drug abuse patient.[facility] CenterIn the event this information is protected by the Federal Confidentiality of Alcohol and Drug Abuse Patient Records regulations: The Federal rules restrict any use of the information to criminally investigate or prosecute any alcohol or drug abuse patient.[facility] CenterIn the event this information is protected by the Federal Confidentiality of Alcohol and Drug Abuse Patient Records regulations: The Federal rules restrict any use of the information to criminally investigate or prosecute any alcohol or drug abuse patient.[facility] CenterIn the event this information is protected by the Federal Confidentiality of Alcohol and Drug Abuse Patient Records regulations: The Federal rules restrict any use of the information to criminally investigate or prosecute any alcohol or drug abuse patient.[facility] CenterIn the event this information is protected by the Federal Confidentiality of Alcohol and Drug Abuse Patient Records regulations: The Federal rules restrict any use of the information to criminally investigate or prosecute any alcohol or drug abuse patient.[facility] CenterIn the event this information is protected by the Federal Confidentiality of Alcohol and Drug Abuse Patient Records regulations: The Federal rules restrict any use of the information to criminally investigate or prosecute any alcohol or drug abuse patient.[facility] CenterIn the event this information is protected by the Federal Confidentiality of Alcohol and Drug Abuse Patient Records regulations: The Federal rules restrict any use of the information to criminally investigate or prosecute any alcohol or drug abuse patient.[facility] CenterIn the event this information is protected by the Federal Confidentiality of Alcohol and Drug Abuse Patient Records regulations: The Federal rules restrict any use of the information to criminally investigate or prosecute any alcohol or drug abuse patient.[facility] CenterIn the event this information is protected by the Federal Confidentiality of Alcohol and Drug Abuse Patient Records regulations: The Federal rules restrict any use of the information to criminally investigate or prosecute any alcohol or drug abuse patient.[facility] CenterIn the event this information is protected by the Federal Confidentiality of Alcohol and Drug Abuse Patient Records regulations: The Federal rules restrict any use of the information to criminally investigate or prosecute any alcohol or drug abuse patient.[facility] CenterIn the event this information is protected by the Federal Confidentiality of Alcohol and Drug Abuse Patient Records regulations: The Federal rules restrict any use of the information to criminally investigate or prosecute any alcohol or drug abuse patient.[facility] CenterIn the event this information is protected by the Federal Confidentiality of Alcohol and Drug Abuse Patient Records regulations: The Federal rules restrict any use of the information to criminally investigate or prosecute any alcohol or drug abuse patient.[facility] CenterIn the event this information is protected by the Federal Confidentiality of Alcohol and Drug Abuse Patient Records regulations: The Federal rules restrict any use of the information to criminally investigate or prosecute any alcohol or drug abuse patient.[facility] CenterIn the event this information is protected by the Federal Confidentiality of Alcohol and Drug Abuse Patient Records regulations: The Federal rules restrict any use of the information to criminally investigate or prosecute any alcohol or drug abuse patient.[facility] CenterIn the event this information is protected by the Federal Confidentiality of Alcohol and Drug Abuse Patient Records regulations: The Federal rules restrict any use of the information to criminally investigate or prosecute any alcohol or drug abuse patient.[facility] CenterIn the event this information is protected by the Federal Confidentiality of Alcohol and Drug Abuse Patient Records regulations: The Federal rules restrict any use of the information to criminally investigate or prosecute any alcohol or drug abuse patient.[facility] CenterIn the event this information is protected by the Federal Confidentiality of Alcohol and Drug Abuse Patient Records regulations: The Federal rules restrict any use of the information to criminally investigate or prosecute any alcohol or drug abuse patient.[facility] CenterIn the event this information is protected by the Federal Confidentiality of Alcohol and Drug Abuse Patient Records regulations: The Federal rules restrict any use of the information to criminally investigate or prosecute any alcohol or drug abuse patient.[facility] CenterIn the event this information is protected by the Federal Confidentiality of Alcohol and Drug Abuse Patient Records regulations: The Federal rules restrict any use of the information to criminally investigate or prosecute any alcohol or drug abuse patient.[facility] CenterIn the event this information is protected by the Federal Confidentiality of Alcohol and Drug Abuse Patient Records regulations: The Federal rules restrict any use of the information to criminally investigate or prosecute any alcohol or drug abuse patient.[facility] CenterIn the event this information is protected by the Federal Confidentiality of Alcohol and Drug Abuse Patient Records regulations: The Federal rules restrict any use of the information to criminally investigate or prosecute any alcohol or drug abuse patient.[facility] CenterIn the event this information is protected by the Federal Confidentiality of Alcohol and Drug Abuse Patient Records regulations: The Federal rules restrict any use of the information to criminally investigate or prosecute any alcohol or drug abuse patient.[facility] CenterIn the event this information is protected by the Federal Confidentiality of Alcohol and Drug Abuse Patient Records regulations: The Federal rules restrict any use of the information to criminally investigate or prosecute any alcohol or drug abuse patient.[facility] CenterIn the event this information is protected by the Federal Confidentiality of Alcohol and Drug Abuse Patient Records regulations: The Federal rules restrict any use of the information to criminally investigate or prosecute any alcohol or drug abuse patient.[facility] CenterIn the event this information is protected by the Federal Confidentiality of Alcohol and Drug Abuse Patient Records regulations: The Federal rules restrict any use of the information to criminally investigate or prosecute any alcohol or drug abuse patient.[facility] CenterIn the event this information is protected by the Federal Confidentiality of Alcohol and Drug Abuse Patient Records regulations: The Federal rules restrict any use of the information to criminally investigate or prosecute any alcohol or drug abuse patient.[facility] CenterIn the event this information is protected by the Federal Confidentiality of Alcohol and Drug Abuse Patient Records regulations: The Federal rules restrict any use of the information to criminally investigate or prosecute any alcohol or drug abuse patient.[facility] CenterIn the event this information is protected by the Federal Confidentiality of Alcohol and Drug Abuse Patient Records regulations: The Federal rules restrict any use of the information to criminally investigate or prosecute any alcohol or drug abuse patient.[facility] CenterIn the event this information is protected by the Federal Confidentiality of Alcohol and Drug Abuse Patient Records regulations: The Federal rules restrict any use of the information to criminally investigate or prosecute any alcohol or drug abuse patient.[facility] CenterIn the event this information is protected by the Federal Confidentiality of Alcohol and Drug Abuse Patient Records regulations: The Federal rules restrict any use of the information to criminally investigate or prosecute any alcohol or drug abuse patient.[facility] CenterIn the event this information is protected by the Federal Confidentiality of Alcohol and Drug Abuse Patient Records regulations: The Federal rules restrict any use of the information to criminally investigate or prosecute any alcohol or drug abuse patient.[facility] CenterIn the event this information is protected by the Federal Confidentiality of Alcohol and Drug Abuse Patient Records regulations: The Federal rules restrict any use of the information to criminally investigate or prosecute any alcohol or drug abuse patient.[facility]In the event this information is protected by the Federal Confidentiality of Alcohol and Drug Abuse Patient Records regulations: The Federal rules restrict any use of the information to criminally investigate or prosecute any alcohol or drug abuse patient.[facility]In the event this information is protected by the Federal Confidentiality of Alcohol and Drug Abuse Patient Records regulations: The Federal rules restrict any use of the information to criminally investigate or prosecute any alcohol or drug abuse patient.[facility]In the event this information is protected by the Federal Confidentiality of Alcohol and Drug Abuse Patient Records regulations: The Federal rules restrict any use of the information to criminally investigate or prosecute any alcohol or drug abuse patient.[facility]In the event this information is protected by the Federal Confidentiality of Alcohol and Drug Abuse Patient Records regulations: The Federal rules restrict any use of the information to criminally investigate or prosecute any alcohol or drug abuse patient.[facility]In the event this information is protected by the Federal Confidentiality of Alcohol and Drug Abuse Patient Records regulations: The Federal rules restrict any use of the information to criminally investigate or prosecute any alcohol or drug abuse patient.[facility]In the event this information is protected by the Federal Confidentiality of Alcohol and Drug Abuse Patient Records regulations: The Federal rules restrict any use of the information to criminally investigate or prosecute any alcohol or drug abuse patient.[facility]In the event this information is protected by the Federal Confidentiality of Alcohol and Drug Abuse Patient Records regulations: The Federal rules restrict any use of the information to criminally investigate or prosecute any alcohol or drug abuse patient.[facility]In the event this information is protected by the Federal Confidentiality of Alcohol and Drug Abuse Patient Records regulations: The Federal rules restrict any use of the information to criminally investigate or prosecute any alcohol or drug abuse patient.[facility]In the event this information is protected by the Federal Confidentiality of Alcohol and Drug Abuse Patient Records regulations: The Federal rules restrict any use of the information to criminally investigate or prosecute any alcohol or drug abuse patient.[facility]In the event this information is protected by the Federal Confidentiality of Alcohol and Drug Abuse Patient Records regulations: The Federal rules restrict any use of the information to criminally investigate or prosecute any alcohol or drug abuse patient.[facility]In the event this information is protected by the Federal Confidentiality of Alcohol and Drug Abuse Patient Records regulations: The Federal rules restrict any use of the information to criminally investigate or prosecute any alcohol or drug abuse patient.[facility]In the event this information is protected by the Federal Confidentiality of Alcohol and Drug Abuse Patient Records regulations: The Federal rules restrict any use of the information to criminally investigate or prosecute any alcohol or drug abuse patient.[facility]In the event this information is protected by the Federal Confidentiality of Alcohol and Drug Abuse Patient Records regulations: The Federal rules restrict any use of the information to criminally investigate or prosecute any alcohol or drug abuse patient.[facility]In the event this information is protected by the Federal Confidentiality of Alcohol and Drug Abuse Patient Records regulations: The Federal rules restrict any use of the information to criminally investigate or prosecute any alcohol or drug abuse patient.[facility]In the event this information is protected by the Federal Confidentiality of Alcohol and Drug Abuse Patient Records regulations: The Federal rules restrict any use of the information to criminally investigate or prosecute any alcohol or drug abuse patient.[facility]In the event this information is protected by the Federal Confidentiality of Alcohol and Drug Abuse Patient Records regulations: The Federal rules restrict any use of the information to criminally investigate or prosecute any alcohol or drug abuse patient.[facility]In the event this information is protected by the Federal Confidentiality of Alcohol and Drug Abuse Patient Records regulations: The Federal rules restrict any use of the information to criminally investigate or prosecute any alcohol or drug abuse patient.[facility]In the event this information is protected by the Federal Confidentiality of Alcohol and Drug Abuse Patient Records regulations: The Federal rules restrict any use of the information to criminally investigate or prosecute any alcohol or drug abuse patient.[facility]In the event this information is protected by the Federal Confidentiality of Alcohol and Drug Abuse Patient Records regulations: The Federal rules restrict any use of the information to criminally investigate or prosecute any alcohol or drug abuse patient.[facility]In the event this information is protected by the Federal Confidentiality of Alcohol and Drug Abuse Patient Records regulations: The Federal rules restrict any use of the information to criminally investigate or prosecute any alcohol or drug abuse patient.[facility]In the event this information is protected by the Federal Confidentiality of Alcohol and Drug Abuse Patient Records regulations: The Federal rules restrict any use of the information to criminally investigate or prosecute any alcohol or drug abuse patient.[facility]In the event this information is protected by the Federal Confidentiality of Alcohol and Drug Abuse Patient Records regulations: The Federal rules restrict any use of the information to criminally investigate or prosecute any alcohol or drug abuse patient.[facility]In the event this information is protected by the Federal Confidentiality of Alcohol and Drug Abuse Patient Records regulations: The Federal rules restrict any use of the information to criminally investigate or prosecute any alcohol or drug abuse patient.[facility]In the event this information is protected by the Federal Confidentiality of Alcohol and Drug Abuse Patient Records regulations: The Federal rules restrict any use of the information to criminally investigate or prosecute any alcohol or drug abuse patient.[facility]In the event this information is protected by the Federal Confidentiality of Alcohol and Drug Abuse Patient Records regulations: The Federal rules restrict any use of the information to criminally investigate or prosecute any alcohol or drug abuse patient.[facility]In the event this information is protected by the Federal Confidentiality of Alcohol and Drug Abuse Patient Records regulations: The Federal rules restrict any use of the information to criminally investigate or prosecute any alcohol or drug abuse patient.[facility]In the event this information is protected by the Federal Confidentiality of Alcohol and Drug Abuse Patient Records regulations: The Federal rules restrict any use of the information to criminally investigate or prosecute any alcohol or drug abuse patient.[facility]In the event this information is protected by the Federal Confidentiality of Alcohol and Drug Abuse Patient Records regulations: The Federal rules restrict any use of the information to criminally investigate or prosecute any alcohol or drug abuse patient.[facility]In the event this information is protected by the Federal Confidentiality of Alcohol and Drug Abuse Patient Records regulations: The Federal rules restrict any use of the information to criminally investigate or prosecute any alcohol or drug abuse patient.[facility]In the event this information is protected by the Federal Confidentiality of Alcohol and Drug Abuse Patient Records regulations: The Federal rules restrict any use of the information to criminally investigate or prosecute any alcohol or drug abuse patient.[facility]In the event this information is protected by the Federal Confidentiality of Alcohol and Drug Abuse Patient Records regulations: The Federal rules restrict any use of the information to criminally investigate or prosecute any alcohol or drug abuse patient.[facility]In the event this information is protected by the Federal Confidentiality of Alcohol and Drug Abuse Patient Records regulations: The Federal rules restrict any use of the information to criminally investigate or prosecute any alcohol or drug abuse patient.[facility]In the event this information is protected by the Federal Confidentiality of Alcohol and Drug Abuse Patient Records regulations: The Federal rules restrict any use of the information to criminally investigate or prosecute any alcohol or drug abuse patient.[facility]In the event this information is protected by the Federal Confidentiality of Alcohol and Drug Abuse Patient Records regulations: The Federal rules restrict any use of the information to criminally investigate or prosecute any alcohol or drug abuse patient.[facility] CenterIn the event this information is protected by the Federal Confidentiality of Alcohol and Drug Abuse Patient Records regulations: The Federal rules restrict any use of the information to criminally investigate or prosecute any alcohol or drug abuse patient.[facility] CenterIn the event this information is protected by the Federal Confidentiality of Alcohol and Drug Abuse Patient Records regulations: The Federal rules restrict any use of the information to criminally investigate or prosecute any alcohol or drug abuse patient.[facility] the event this information is protected by the Federal Confidentiality of Alcohol and Drug Abuse Patient Records regulations: The Federal rules restrict any use of the information to criminally investigate or prosecute any alcohol or drug abuse patient.[facility] CenterIn the event this information is protected by the Federal Confidentiality of Alcohol and Drug Abuse Patient Records regulations: The Federal rules restrict any use of the information to criminally investigate or prosecute any alcohol or drug abuse patient.[facility] CenterIn the event this information is protected by the Federal Confidentiality of Alcohol and Drug Abuse Patient Records regulations: The Federal rules restrict any use of the information to criminally investigate or prosecute any alcohol or drug abuse patient.[facility] CenterIn the event this information is protected by the Federal Confidentiality of Alcohol and Drug Abuse Patient Records regulations: The Federal rules restrict any use of the information to criminally investigate or prosecute any alcohol or drug abuse patient.[facility] CenterIn the event this information is protected by the Federal Confidentiality of Alcohol and Drug Abuse Patient Records regulations: The Federal rules restrict any use of the information to criminally investigate or prosecute any alcohol or drug abuse patient.[facility] CenterIn the event this information is protected by the Federal Confidentiality of Alcohol and Drug Abuse Patient Records regulations: The Federal rules restrict any use of the information to criminally investigate or prosecute any alcohol or drug abuse patient.[facility] CenterIn the event this information is protected by the Federal Confidentiality of Alcohol and Drug Abuse Patient Records regulations: The Federal rules restrict any use of the information to criminally investigate or prosecute any alcohol or drug abuse patient.[facility] CenterIn the event this information is protected by the Federal Confidentiality of Alcohol and Drug Abuse Patient Records regulations: The Federal rules restrict any use of the information to criminally investigate or prosecute any alcohol or drug abuse patient.[facility] CenterIn the event this information is protected by the Federal Confidentiality of Alcohol and Drug Abuse Patient Records regulations: The Federal rules restrict any use of the information to criminally investigate or prosecute any alcohol or drug abuse patient.[facility] CenterIn the event this information is protected by the Federal Confidentiality of Alcohol and Drug Abuse Patient Records regulations: The Federal rules restrict any use of the information to criminally investigate or prosecute any alcohol or drug abuse patient.[facility] CenterIn the event this information is protected by the Federal Confidentiality of Alcohol and Drug Abuse Patient Records regulations: The Federal rules restrict any use of the information to criminally investigate or prosecute any alcohol or drug abuse patient.[facility] CenterIn the event this information is protected by the Federal Confidentiality of Alcohol and Drug Abuse Patient Records regulations: The Federal rules restrict any use of the information to criminally investigate or prosecute any alcohol or drug abuse patient.[facility] CenterIn the event this information is protected by the Federal Confidentiality of Alcohol and Drug Abuse Patient Records regulations: The Federal rules restrict any use of the information to criminally investigate or prosecute any alcohol or drug abuse patient.[facility] CenterIn the event this information is protected by the Federal Confidentiality of Alcohol and Drug Abuse Patient Records regulations: The Federal rules restrict any use of the information to criminally investigate or prosecute any alcohol or drug abuse patient.[facility] CenterIn the event this information is protected by the Federal Confidentiality of Alcohol and Drug Abuse Patient Records regulations: The Federal rules restrict any use of the information to criminally investigate or prosecute any alcohol or drug abuse patient.[facility] CenterIn the event this information is protected by the Federal Confidentiality of Alcohol and Drug Abuse Patient Records regulations: The Federal rules restrict any use of the information to criminally investigate or prosecute any alcohol or drug abuse patient.[facility] CenterIn the event this information is protected by the Federal Confidentiality of Alcohol and Drug Abuse Patient Records regulations: The Federal rules restrict any use of the information to criminally investigate or prosecute any alcohol or drug abuse patient.[facility] CenterIn the event this information is protected by the Federal Confidentiality of Alcohol and Drug Abuse Patient Records regulations: The Federal rules restrict any use of the information to criminally investigate or prosecute any alcohol or drug abuse patient.[facility] CenterIn the event this information is protected by the Federal Confidentiality of Alcohol and Drug Abuse Patient Records regulations: The Federal rules restrict any use of the information to criminally investigate or prosecute any alcohol or drug abuse patient.[facility] CenterIn the event this information is protected by the Federal Confidentiality of Alcohol and Drug Abuse Patient Records regulations: The Federal rules restrict any use of the information to criminally investigate or prosecute any alcohol or drug abuse patient.[facility] CenterIn the event this information is protected by the Federal Confidentiality of Alcohol and Drug Abuse Patient Records regulations: The Federal rules restrict any use of the information to criminally investigate or prosecute any alcohol or drug abuse patient.[facility] CenterIn the event this information is protected by the Federal Confidentiality of Alcohol and Drug Abuse Patient Records regulations: The Federal rules restrict any use of the information to criminally investigate or prosecute any alcohol or drug abuse patient.[facility] CenterIn the event this information is protected by the Federal Confidentiality of Alcohol and Drug Abuse Patient Records regulations: The Federal rules restrict any use of the information to criminally investigate or prosecute any alcohol or drug abuse patient.[facility] CenterIn the event this information is protected by the Federal Confidentiality of Alcohol and Drug Abuse Patient Records regulations: The Federal rules restrict any use of the information to criminally investigate or prosecute any alcohol or drug abuse patient.[facility] CenterIn the event this information is protected by the Federal Confidentiality of Alcohol and Drug Abuse Patient Records regulations: The Federal rules restrict any use of the information to criminally investigate or prosecute any alcohol or drug abuse patient.[facility] CenterIn the event this information is protected by the Federal Confidentiality of Alcohol and Drug Abuse Patient Records regulations: The Federal rules restrict any use of the information to criminally investigate or prosecute any alcohol or drug abuse patient.[facility] CenterIn the event this information is protected by the Federal Confidentiality of Alcohol and Drug Abuse Patient Records regulations: The Federal rules restrict any use of the information to criminally investigate or prosecute any alcohol or drug abuse patient.[facility] CenterIn the event this information is protected by the Federal Confidentiality of Alcohol and Drug Abuse Patient Records regulations: The Federal rules restrict any use of the information to criminally investigate or prosecute any alcohol or drug abuse patient.[facility] CenterIn the event this information is protected by the Federal Confidentiality of Alcohol and Drug Abuse Patient Records regulations: The Federal rules restrict any use of the information to criminally investigate or prosecute any alcohol or drug abuse patient.[facility] CenterIn the event this information is protected by the Federal Confidentiality of Alcohol and Drug Abuse Patient Records regulations: The Federal rules restrict any use of the information to criminally investigate or prosecute any alcohol or drug abuse patient.[facility] CenterIn the event this information is protected by the Federal Confidentiality of Alcohol and Drug Abuse Patient Records regulations: The Federal rules restrict any use of the information to criminally investigate or prosecute any alcohol or drug abuse patient.[facility] CenterIn the event this information is protected by the Federal Confidentiality of Alcohol and Drug Abuse Patient Records regulations: The Federal rules restrict any use of the information to criminally investigate or prosecute any alcohol or drug abuse patient.[facility] CenterIn the event this information is protected by the Federal Confidentiality of Alcohol and Drug Abuse Patient Records regulations: The Federal rules restrict any use of the information to criminally investigate or prosecute any alcohol or drug abuse patient.[facility] CenterIn the event this information is protected by the Federal Confidentiality of Alcohol and Drug Abuse Patient Records regulations: The Federal rules restrict any use of the information to criminally investigate or prosecute any alcohol or drug abuse patient.[facility] CenterIn the event this information is protected by the Federal Confidentiality of Alcohol and Drug Abuse Patient Records regulations: The Federal rules restrict any use of the information to criminally investigate or prosecute any alcohol or drug abuse patient.[facility]In the event this information is protected by the Federal Confidentiality of Alcohol and Drug Abuse Patient Records regulations: The Federal rules restrict any use of the information to criminally investigate or prosecute any alcohol or drug abuse patient.[facility] CenterIn the event this information is protected by the Federal Confidentiality of Alcohol and Drug Abuse Patient Records regulations: The Federal rules restrict any use of the information to criminally investigate or prosecute any alcohol or drug abuse patient.[facility]In the event this information is protected by the Federal Confidentiality of Alcohol and Drug Abuse Patient Records regulations: The Federal rules restrict any use of the information to criminally investigate or prosecute any alcohol or drug abuse patient.[facility]In the event this information is protected by the Federal Confidentiality of Alcohol and Drug Abuse Patient Records regulations: The Federal rules restrict any use of the information to criminally investigate or prosecute any alcohol or drug abuse patient.[facility]In the event this information is protected by the Federal Confidentiality of Alcohol and Drug Abuse Patient Records regulations: The Federal rules restrict any use of the information to criminally investigate or prosecute any alcohol or drug abuse patient.[facility]In the event this information is protected by the Federal Confidentiality of Alcohol and Drug Abuse Patient Records regulations: The Federal rules restrict any use of the information to criminally investigate or prosecute any alcohol or drug abuse patient.[facility] CenterIn the event this information is protected by the Federal Confidentiality of Alcohol and Drug Abuse Patient Records regulations: The Federal rules restrict any use of the information to criminally investigate or prosecute any alcohol or drug abuse patient.[facility]In the event this information is protected by the Federal Confidentiality of Alcohol and Drug Abuse Patient Records regulations: The Federal rules restrict any use of the information to criminally investigate or prosecute any alcohol or drug abuse patient.[facility] CenterIn the event this information is protected by the Federal Confidentiality of Alcohol and Drug Abuse Patient Records regulations: The Federal rules restrict any use of the information to criminally investigate or prosecute any alcohol or drug abuse patient.[facility] CenterIn the event this information is protected by the Federal Confidentiality of Alcohol and Drug Abuse Patient Records regulations: The Federal rules restrict any use of the information to criminally investigate or prosecute any alcohol or drug abuse patient.[facility]In the event this information is protected by the Federal Confidentiality of Alcohol and Drug Abuse Patient Records regulations: The Federal rules restrict any use of the information to criminally investigate or prosecute any alcohol or drug abuse patient.[facility] CenterIn the event this information is protected by the Federal Confidentiality of Alcohol and Drug Abuse Patient Records regulations: The Federal rules restrict any use of the information to criminally investigate or prosecute any alcohol or drug abuse patient.[facility] CenterIn the event this information is protected by the Federal Confidentiality of Alcohol and Drug Abuse Patient Records regulations: The Federal rules restrict any use of the information to criminally investigate or prosecute any alcohol or drug abuse patient.[facility]In the event this information is protected by the Federal Confidentiality of Alcohol and Drug Abuse Patient Records regulations: The Federal rules restrict any use of the information to criminally investigate or prosecute any alcohol or drug abuse patient.[facility]In the event this information is protected by the Federal Confidentiality of Alcohol and Drug Abuse Patient Records regulations: The Federal rules restrict any use of the information to criminally investigate or prosecute any alcohol or drug abuse patient.[facility]In the event this information is protected by the Federal Confidentiality of Alcohol and Drug Abuse Patient Records regulations: The Federal rules restrict any use of the information to criminally investigate or prosecute any alcohol or drug abuse patient.[facility]In the event this information is protected by the Federal Confidentiality of Alcohol and Drug Abuse Patient Records regulations: The Federal rules restrict any use of the information to criminally investigate or prosecute any alcohol or drug abuse patient.[facility]In the event this information is protected by the Federal Confidentiality of Alcohol and Drug Abuse Patient Records regulations: The Federal rules restrict any use of the information to criminally investigate or prosecute any alcohol or drug abuse patient.[facility]In the event this information is protected by the Federal Confidentiality of Alcohol and Drug Abuse Patient Records regulations: The Federal rules restrict any use of the information to criminally investigate or prosecute any alcohol or drug abuse patient.[facility]In the event this information is protected by the Federal Confidentiality of Alcohol and Drug Abuse Patient Records regulations: The Federal rules restrict any use of the information to criminally investigate or prosecute any alcohol or drug abuse patient.[facility]In the event this information is protected by the Federal Confidentiality of Alcohol and Drug Abuse Patient Records regulations: The Federal rules restrict any use of the information to criminally investigate or prosecute any alcohol or drug abuse patient.[facility]In the event this information is protected by the Federal Confidentiality of Alcohol and Drug Abuse Patient Records regulations: The Federal rules restrict any use of the information to criminally investigate or prosecute any alcohol or drug abuse patient.[facility]In the event this information is protected by the Federal Confidentiality of Alcohol and Drug Abuse Patient Records regulations: The Federal rules restrict any use of the information to criminally investigate or prosecute any alcohol or drug abuse patient.[facility]In the event this information is protected by the Federal Confidentiality of Alcohol and Drug Abuse Patient Records regulations: The Federal rules restrict any use of the information to criminally investigate or prosecute any alcohol or drug abuse patient.[facility]In the event this information is protected by the Federal Confidentiality of Alcohol and Drug Abuse Patient Records regulations: The Federal rules restrict any use of the information to criminally investigate or prosecute any alcohol or drug abuse patient.[facility]In the event this information is protected by the Federal Confidentiality of Alcohol and Drug Abuse Patient Records regulations: The Federal rules restrict any use of the information to criminally investigate or prosecute any alcohol or drug abuse patient.[facility]In the event this information is protected by the Federal Confidentiality of Alcohol and Drug Abuse Patient Records regulations: The Federal rules restrict any use of the information to criminally investigate or prosecute any alcohol or drug abuse patient.[facility]In the event this information is protected by the Federal Confidentiality of Alcohol and Drug Abuse Patient Records regulations: The Federal rules restrict any use of the information to criminally investigate or prosecute any alcohol or drug abuse patient.[facility]In the event this information is protected by the Federal Confidentiality of Alcohol and Drug Abuse Patient Records regulations: The Federal rules restrict any use of the information to criminally investigate or prosecute any alcohol or drug abuse patient.[facility]In the event this information is protected by the Federal Confidentiality of Alcohol and Drug Abuse Patient Records regulations: The Federal rules restrict any use of the information to criminally investigate or prosecute any alcohol or drug abuse patient.[facility]In the event this information is protected by the Federal Confidentiality of Alcohol and Drug Abuse Patient Records regulations: The Federal rules restrict any use of the information to criminally investigate or prosecute any alcohol or drug abuse patient.[facility]In the event this information is protected by the Federal Confidentiality of Alcohol and Drug Abuse Patient Records regulations: The Federal rules restrict any use of the information to criminally investigate or prosecute any alcohol or drug abuse patient.[facility]In the event this information is protected by the Federal Confidentiality of Alcohol and Drug Abuse Patient Records regulations: The Federal rules restrict any use of the information to criminally investigate or prosecute any alcohol or drug abuse patient.[facility]In the event this information is protected by the Federal Confidentiality of Alcohol and Drug Abuse Patient Records regulations: The Federal rules restrict any use of the information to criminally investigate or prosecute any alcohol or drug abuse patient.[facility]In the event this information is protected by the Federal Confidentiality of Alcohol and Drug Abuse Patient Records regulations: The Federal rules restrict any use of the information to criminally investigate or prosecute any alcohol or drug abuse patient.[facility]In the event this information is protected by the Federal Confidentiality of Alcohol and Drug Abuse Patient Records regulations: The Federal rules restrict any use of the information to criminally investigate or prosecute any alcohol or drug abuse patient.[facility]In the event this information is protected by the Federal Confidentiality of Alcohol and Drug Abuse Patient Records regulations: The Federal rules restrict any use of the information to criminally investigate or prosecute any alcohol or drug abuse patient.[facility]In the event this information is protected by the Federal Confidentiality of Alcohol and Drug Abuse Patient Records regulations: The Federal rules restrict any use of the information to criminally investigate or prosecute any alcohol or drug abuse patient.[facility]In the event this information is protected by the Federal Confidentiality of Alcohol and Drug Abuse Patient Records regulations: The Federal rules restrict any use of the information to criminally investigate or prosecute any alcohol or drug abuse patient.[facility]In the event this information is protected by the Federal Confidentiality of Alcohol and Drug Abuse Patient Records regulations: The Federal rules restrict any use of the information to criminally investigate or prosecute any alcohol or drug abuse patient.[facility]In the event this information is protected by the Federal Confidentiality of Alcohol and Drug Abuse Patient Records regulations: The Federal rules restrict any use of the information to criminally investigate or prosecute any alcohol or drug abuse patient.[facility]In the event this information is protected by the Federal Confidentiality of Alcohol and Drug Abuse Patient Records regulations: The Federal rules restrict any use of the information to criminally investigate or prosecute any alcohol or drug abuse patient.[facility]In the event this information is protected by the Federal Confidentiality of Alcohol and Drug Abuse Patient Records regulations: The Federal rules restrict any use of the information to criminally investigate or prosecute any alcohol or drug abuse patient.[facility]In the event this information is protected by the Federal Confidentiality of Alcohol and Drug Abuse Patient Records regulations: The Federal rules restrict any use of the information to criminally investigate or prosecute any alcohol or drug abuse patient.[facility]In the event this information is protected by the Federal Confidentiality of Alcohol and Drug Abuse Patient Records regulations: The Federal rules restrict any use of the information to criminally investigate or prosecute any alcohol or drug abuse patient.[facility]In the event this information is protected by the Federal Confidentiality of Alcohol and Drug Abuse Patient Records regulations: The Federal rules restrict any use of the information to criminally investigate or prosecute any alcohol or drug abuse patient.[facility]In the event this information is protected by the Federal Confidentiality of Alcohol and Drug Abuse Patient Records regulations: The Federal rules restrict any use of the information to criminally investigate or prosecute any alcohol or drug abuse patient.[facility]In the event this information is protected by the Federal Confidentiality of Alcohol and Drug Abuse Patient Records regulations: The Federal rules restrict any use of the information to criminally investigate or prosecute any alcohol or drug abuse patient.[facility] CenterIn the event this information is protected by the Federal Confidentiality of Alcohol and Drug Abuse Patient Records regulations: The Federal rules restrict any use of the information to criminally investigate or prosecute any alcohol or drug abuse patient.[facility] CenterIn the event this information is protected by the Federal Confidentiality of Alcohol and Drug Abuse Patient Records regulations: The Federal rules restrict any use of the information to criminally investigate or prosecute any alcohol or drug abuse patient.[facility] CenterIn the event this information is protected by the Federal Confidentiality of Alcohol and Drug Abuse Patient Records regulations: The Federal rules restrict any use of the information to criminally investigate or prosecute any alcohol or drug abuse patient.[facility] Center[facility] the event this information is protected by the Federal Confidentiality of Alcohol and Drug Abuse Patient Records regulations: The Federal rules restrict any use of the information to criminally investigate or prosecute any alcohol or drug abuse patient.[facility] CenterIn the event this information is protected by the Federal Confidentiality of Alcohol and Drug Abuse Patient Records regulations: The Federal rules restrict any use of the information to criminally investigate or prosecute any alcohol or drug abuse patient.[facility] CenterIn the event this information is protected by the Federal Confidentiality of Alcohol and Drug Abuse Patient Records regulations: The Federal rules restrict any use of the information to criminally investigate or prosecute any alcohol or drug abuse patient.[facility] CenterIn the event this information is protected by the Federal Confidentiality of Alcohol and Drug Abuse Patient Records regulations: The Federal rules restrict any use of the information to criminally investigate or prosecute any alcohol or drug abuse patient.[facility] CenterIn the event this information is protected by the Federal Confidentiality of Alcohol and Drug Abuse Patient Records regulations: The Federal rules restrict any use of the information to criminally investigate or prosecute any alcohol or drug abuse patient.[facility] CenterIn the event this information is protected by the Federal Confidentiality of Alcohol and Drug Abuse Patient Records regulations: The Federal rules restrict any use of the information to criminally investigate or prosecute any alcohol or drug abuse patient.[facility] CenterIn the event this information is protected by the Federal Confidentiality of Alcohol and Drug Abuse Patient Records regulations: The Federal rules restrict any use of the information to criminally investigate or prosecute any alcohol or drug abuse patient.[facility] CenterIn the event this information is protected by the Federal Confidentiality of Alcohol and Drug Abuse Patient Records regulations: The Federal rules restrict any use of the information to criminally investigate or prosecute any alcohol or drug abuse patient.[facility] CenterIn the event this information is protected by the Federal Confidentiality of Alcohol and Drug Abuse Patient Records regulations: The Federal rules restrict any use of the information to criminally investigate or prosecute any alcohol or drug abuse patient.[facility] CenterIn the event this information is protected by the Federal Confidentiality of Alcohol and Drug Abuse Patient Records regulations: The Federal rules restrict any use of the information to criminally investigate or prosecute any alcohol or drug abuse patient.[facility] CenterIn the event this information is protected by the Federal Confidentiality of Alcohol and Drug Abuse Patient Records regulations: The Federal rules restrict any use of the information to criminally investigate or prosecute any alcohol or drug abuse patient.[facility] FOR RECORDS PERTAINING TO PATIENTS WHO ARE OR HAVE BEEN ENROLLED IN A CHEMICAL DEPENDENCY/SUBSTANCEABUSE PROGRAM, SOME INFORMATION MAY BE OMITTED. This clinical summary was aggregated from multiple sources. Caution should be exercised in using it in the provision of clinical care. This summary normalizes information from multiple sources, and as a consequence, information in this document may materially change the coding, format and clinical context of patient data. In addition, data may be omitted in some cases. CLINICAL DECISIONS SHOULD BE BASED ON THE PRIMARY CLINICAL RECORDS. [facility] [employer] provides no warranty or guarantee of the accuracy or completeness of information in this document.
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
== END 2024-12-01 11:46 | disposition home or self-care (01) ==
PROVIDERS: Emergency Provider Emergency Medicine; PCP Internal Medicine; Visit Provider Emergency Medicine
DX: Z76.0 Encounter for issue of repeat prescription (principal); M25.511 Pain in right shoulder; F17.210 Nicotine dependence, cigarettes, uncomplicated; Z79.891 Long term (current) use of opiate analgesic
CPT/HCPCS: 99282; A4216

== ENCOUNTER 2024-12-06 18:51 | Observation (INO) | payer MEDICAID, SELFPAY ==
[2024-12-06 18:52] VITALS: BP 120/75; PULSE 98; RESP 16; TEMP 36.8; O2SAT 98; BMI 20.5
[2024-12-06 19:52] VITALS: PULSE 78; RESP 18; O2SAT 98
--- NOTE | 2024-12-06 19:54 | EDS_ITS ---
HPI <SAAD Hood - Last Filed: 12/06/24 21:20> History of Present Illness Chief Complaint: Substance Abuse Narrative Narrative: Patient presenting today requesting to detox from Percocet. She reports that over the past 2 years she has been taking either Percocet or oxycodone daily after having two rotator cuff surgeries performed. She reports that a few weeks ago she was prescribed a few courses of morphine but did not tolerate this well and is now taking oxycodone 10 mg. She reports that so far today she has had 5 of these, her last dose was 3:30 PM. She reports that she will start to have withdrawal symptoms within 4 to 5 hours after taking them including mood swings, diarrhea, vomiting, abdominal cramping, chills, sweats, and the shakes. She does not currently feel she is going through withdrawal. 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 She also admits to daily marijuana use and is prescribed Xanax as needed but reports that she does not abuse these. She denies alcohol use. [facility] <SAAD Hood - Last Filed: 12/06/24 21:20> [facility] Medical History Substance abuse Congestive heart failure (CHF) Marijuana use Right rotator cuff tear Wears partial dentures Hepatitis Smoker History of echocardiogram History of stress test Cardiology follow-up encounter History of CHF (congestive heart failure) Esophageal tear Anxiety Home Medications Medication Instructions Recorded Last Taken Type trazodone 100 mg tablet 100 mg PO QHS sleep 01/03/17 12/05/24 History inhalational spacing device 10/09/23 Unknown History (BreatheRite MDI Spacer) tizanidine 4 mg tablet 4 mg PO Q6H PRN PRN muscle 0 02/27/24 12/06/24 History relaxation oxycodone 10 mg tablet 10 mg PO Q6H PRN pain 2 days #8 12/01/24 Unknown Rx tabs albuterol sulfate 90 mcg/actuation 2 puff inhalation Q 4H PRN PRN 12/06/24 Unknown History aerosol inhaler wheezing alprazolam 0.5 mg tablet 0.5 mg PO BID PRN PRN anxiet y 12/06/24 12/04/24 History ondansetron HCl 4 mg tablet 4 mg PO TID PRN PRN nausea /vomiting 12/06/24 12/06/24 History Allergy/AdvReac Type Severity Reaction Status Date / Time escitalopram (From Lexapro) Allergy Other Verified 12/06/24 18:54 lamotrigine (From Lamictal) Allergy Hives Verified 12/06/24 18:54 nitrofurantoin (From Allergy Unknown Verified 12/06/24 18:54 Macrobid) nitrofurantoin Allergy Unknown Verified 12/06/24 18:54 macrocrystalline (From Macrobid) codeine AdvReac Nausea Verified 12/06/24 18:54 Family History Mother Anxiety Hypertension High cholesterol Diabetes Depression Father Hypertension Surgical History History of tubal ligation History of lumpectomy of right breast History of repair of rotator cuff Hx of surgical procedure Hx of removal of ovary History of tonsillectomy and adenoidectomy Social History household members: family housing: house Smoking Status: Current every day smoker tobacco type: cigarettes substance use type: marijuana additional social history: pt does not vape, does not take aspirin, pt does report using marijuana daily,does uses edibles on occassion, does use ibuprofen as needed. ROS <SAAD Hood - Last Filed: 12/06/24 21:20> ROS ED Constitutional Constitutional ED: Denies chills or fever(s) Cardiovascular Cardiovascular: Denies chest pain Respiratory/Chest Respiratory/Chest: Denies dyspnea Gastrointestinal Gastrointestinal: Denies abdominal pain, nausea or vomiting Musculoskeletal Musculoskeletal: Denies arthralgias or myalgias Integumentary Denies rash Neurologic Neurologic: Denies weakness EXAM <SAAD Hood - Last Filed: 12/06/24 21:20> Physical Exam Const Vital Signs: 12/06/24 18:52 12/06/24 19:52 12/06/24 20:00 Temperature 98.3 F Temperature Source Oral Pulse Rate 98 78 80 Respiratory Rate 16 18 17 Blood Pressure 120/75 120/70 Blood Pressure Mean 90 86 Pulse Ox 98 98 98 Oxygen Delivery Method Room Air Room Air Room Air 12/06/24 21:00 12/06/24 21:00 Temperature 97 F L 98 F Temperature Source Oral Pulse Rate 70 75 Respiratory Rate 18 18 Blood Pressure 123/78 H 123/78 H Blood Pressure Mean 93 93 Pulse Ox 97 100 Oxygen Delivery Method Room Air Positive well nourished, well developed and no apparent distress General Appearance ED: well developed HEENT Reports normocephalic and head/scalp atraumatic Mouth ED: Yes moist mucous membranes normal Eyes PERRL and EOMs intact bilaterally Neck full ROM and supple Chest Wall inspection of chest normal Resp normal respiratory effort and clear to auscultation bilaterally Cardio regular rate and regular rhythm Back/Spine normal ROM and normal to inspection Extremity normal to inspection and full ROM Neuro oriented x3, CN's II-XII intact bilaterally, moves all extremities, no focal motor deficits and no sensory deficits noted Sensorium / Orientation: awake and alert Psych mental status grossly normal and thought process normal Skin no rashes or lesions noted and no wounds <Dr. Jose Adam DO - Last Filed: 12/06/24 22:52> Physical Exam Const Vital Signs: 12/06/24 18:52 12/06/24 19:52 12/06/24 20:00 Temperature 98.3 F Temperature Source Oral Pulse Rate 98 78 80 Respiratory Rate 16 18 17 Blood Pressure 120/75 120/70 Blood Pressure Mean 90 86 Pulse Ox 98 98 98 Oxygen Delivery Method Room Air Room Air Room Air 12/06/24 21:00 12/06/24 21:00 Temperature 97 F L 98 F Temperature Source Oral Pulse Rate 70 75 Respiratory Rate 18 18 Blood Pressure 123/78 H 123/78 H Blood Pressure Mean 93 93 Pulse Ox 97 100 Oxygen Delivery Method Room Air MDM <SAAD Hood - Last Filed: 12/06/24 21:20> [facility] Narrative Medical decision making narrative: Patient presenting today requesting to detox from oxycodone's. She has been taking either 10 mg of oxycodone or 5 mg Percocets daily over the past 2 years. I did review her [facility] report, she has been receiving extensive narcotic prescriptions. In a span of 11 days she received 148 oxycodone 10 mg (11/22- 12/03). She reports her PCP has been trying to wean her down. She is now requesting to detox. Her last dose was around 3:30 PM, she does not currently feel she is withdrawing. She has had 50 mg of oxycodone today. Labs obtained, her CBC, CMP, and test are unremarkable. Urine hCG positive for benzodiazepines, cannabis, and opiates. I spoke with Dr. Garcia, she will be admitted in stable condition. Lab Data Attestation: I reviewed the patient's lab results. Labs: Laboratory Results - last 24 hr 12/06/24 19:50 WBC 9.2 RBC 4.23 Hgb 13.5 Hct 38.5 MCV 91.0 MCH 31.9 MCHC 35.1 RDW Std Deviation 40.9 RDW Coeff of Denys 12.3 Plt Count 273 MPV 10.0 Immature Gran % (Auto) 0.200 Neut % (Auto) 59.6 Lymph % (Auto) 30.5 Thayer % (Auto) 7.5 Eos % (Auto) 1.1 Baso % (Auto) 1.1 H Absolute Neuts (auto) 5.5 Absolute Lymphs (auto) 2.81 Nucleated RBC % 0 Sodium 137 Potassium 3.7 Chloride 102 Carbon Dioxide 24.2 Anion Gap 11 BUN 3 L Creatinine 0.64 L Estim Creat Clear Calc 101.21 Est GFR (MDRD) Non-Af 113 BUN/Creatinine Ratio 4.6 L Glucose 117 H Calcium 8.8 Total Bilirubin 0.19 AST 22 ALT 11 Alkaline Phosphatase 62 Total Protein 6.2 Albumin 3.8 Globulin 2.4 Albumin/Globulin Ratio 1.6 Serum , Qual NEGATIVE Urine Opiates Screen NEGATIVE U Buprenorphine Qual NEGATIVE Ur Oxycodone Screen PRESUMPTIVE POSITIVE Urine Methadone Screen NEGATIVE Urine Fentanyl Screen NEGATIVE Ur Barbiturates Screen NEGATIVE Ur Phencyclidine Scrn NEGATIVE Ur Amphetamines Screen NEGATIVE U Benzodiazepines Scrn PRESUMPTIVE POSITIVE Urine Cocaine Screen NEGATIVE U Cannabinoids Screen PRESUMPTIVE POSITIVE Ethyl Alcohol < 10.1 <Dr. Jose Adam, DO - Last Filed: 12/06/24 22:52> [facility] Lab Data Labs: Laboratory Results - last 24 hr 12/06/24 19:50 WBC 9.2 RBC 4.23 Hgb 13.5 Hct 38.5 MCV 91.0 MCH 31.9 MCHC 35.1 RDW Std Deviation 40.9 RDW Coeff of Denys 12.3 Plt Count 273 MPV 10.0 Immature Gran % (Auto) 0.200 Neut % (Auto) 59.6 Lymph % (Auto) 30.5 Thayer % (Auto) 7.5 Eos % (Auto) 1.1 Baso % (Auto) 1.1 H Absolute Neuts (auto) 5.5 Absolute Lymphs (auto) 2.81 Nucleated RBC % 0 Sodium 137 Potassium 3.7 Chloride 102 Carbon Dioxide 24.2 Anion Gap 11 BUN 3 L Creatinine 0.64 L Estim Creat Clear Calc 101.21 Est GFR (MDRD) Non-Af 113 BUN/Creatinine Ratio 4.6 L Glucose 117 H Calcium 8.8 Total Bilirubin 0.19 AST 22 ALT 11 Alkaline Phosphatase 62 Total Protein 6.2 Albumin 3.8 Globulin 2.4 Albumin/Globulin Ratio 1.6 Serum , Qual NEGATIVE Urine Opiates Screen NEGATIVE U Buprenorphine Qual NEGATIVE Ur Oxycodone Screen PRESUMPTIVE POSITIVE Urine Methadone Screen NEGATIVE Urine Fentanyl Screen NEGATIVE Ur Barbiturates Screen NEGATIVE Ur Phencyclidine Scrn NEGATIVE Ur Amphetamines Screen NEGATIVE U Benzodiazepines Scrn PRESUMPTIVE POSITIVE Urine Cocaine Screen NEGATIVE U Cannabinoids Screen PRESUMPTIVE POSITIVE Ethyl Alcohol < 10.1 Treatment and Re-Evaluation Narrative: I have personally performed a face to face assessment of the patient and have reviewed the DESIREE Note. I performed a substantive portion of the visit including all aspects of the following. My samuels findings include: History: Patient presents requesting hospital opiates. Patient states she has a history of heroin abuse and went through detox approximately 15 years ago for that. Patient states she has been having pain in her right shoulder and had 2 recent shoulder surgeries. Patient states she was started on Percocet prior to the reverse shoulder surgery. Patient states she was having difficulty weaning herself off of those. Patient states she has been taking up to 40 mg of Percoc et per day. Patient states her last dose was approximately 3 PM today. Patient states that a few hours after taking Percocet, she starts to have some withdrawal symptoms. Patient states her primary care physician was attempting to wean her off of the Percocet. Exam: Vital signs are stable. Patient is afebrile. Patient is in no acute distress. Oral mucosa is pink and moist. Neck is supple. Trachea is midline. There is no JVD. Heart was regular rate and rhythm. Lungs are clear and equal bilaterally. Abdomen is soft. Bowel sounds are normal. There is no ten derness. Cranial nerves II through XII are intact. There are no focal motor or sensory deficits noted. Medical Decision Making: Medical screening labs will be obtained. CBC will be obtained to assess for leukocytosis and anemia. Comprehensive metabolic profile will be obtained to assess for hepatic function, renal function, and electrolyte abnormality. Serum hCG will be obtained to assess for . Alcohol level will be obtained to assess for alcohol intoxication. Urine drug screen will be obtained to assess for substance abuse. CBC was reviewed and was within normal limits. Comprehensive metabolic profile was reviewed and was essentially within normal limits. Serum hCG was reviewed and was negative. Serum alcohol level was reviewed and was less than 10.1. Urine drug screen was reviewed and was positive for oxycodone, benzodiazepines, and cannabinoids. Case was discussed with the hospitalist. She will admit the patient to her service for detox. Patient understood and was agreeable with plan. All questions were answered. Discharge Plan Dx/Rx/DC Orders Clinical Impression: Desire for detoxification, Opiate dependence Disposition Disposition: Acute Care Hospital [facility] Discharge Date/Time: 12/06/24 21:38
[2024-12-06 20:00] VITALS: BP 120/70; PULSE 80; RESP 17; O2SAT 98
[2024-12-06 20:13] LABS: Absolute Lymphocyte Count 2.81 X10^3/uL (0.83-4.51); Absolute Neutrophil Count 5.5 X10^3/uL (2.0-7.7); Basophil% 1.1 % (0-1); Eosinophils% 1.1 % (0-5); Hematocrit 38.5 % (37-47); Hemoglobin 13.5 g/dL (12.0-15.0); Lymphocyte # 2.81 X10^3/ul (0.83-4.51); Lymphocyte % 30.5 % (19-41); Mean Corp Hgb Conc 35.1 g/dL (32-36); Mean Corpuscular Hgb 31.9 pg (27.0-32.0); Monocyte# 0.69 X10^3/uL; Monocyte% 7.5 % (0-10); NRBC Flagged by Analyzer 0 % (0-5); Neutrophil % 59.6 % (47-70); Platelet Count 273 K/mm3 (150-450); RBC Distribution Width CV 12.3 % (11.6-14.6); RBC Distribution Width SD 40.9 fl (35.1-43.9); Red Blood Count 4.23 M/mm3 (4.2-5.4); White Blood Count 9.2 K/mm3 (4.4-11.0)
[2024-12-06 20:35] LABS: ALB/GLOB Ratio 1.6 RATIO (0.9-2.4); AST(SGOT) 22 U/L (<=31); Alanine Aminotransfer ALT/SGPT 11 U/L (<=34); Albumin, Serum 3.8 g/dL (3.5-5.0); Alcohol, Blood (Medical)-Serum < 10.1 mg/dL (<=10.0); Alkaline Phosphatase 62 U/L (35-104); Anion Gap 11 (5-15); BUN 3 mg/dL (4-19); BUN/Creat Ratio 4.6 RATIO (10-20); Calcium,Total 8.8 mg/dL (7.6-11.0); Carbon Dioxide 24.2 mmol/L (21.0-32.0); Chloride 102 mmol/L (98-108); Creatinine, Serum 0.64 mg/dL (0.70-1.20); EST Glomerular Filtration Rate 113 (>60); Estimated Creatinine Clearance 101.21 ml/min (50-250); Globulin 2.4 g/dL (2.2-4.2); Glucose 117 mg/dL (70-99); Potassium 3.7 mmol/L (3.3-5.1); Protein, Total 6.2 g/dL (5.9-8.4); Sodium Level 137 mmol/L (133-145); Total Bilirubin 0.19 mg/dL (0.00-1.30)
[2024-12-06 20:42] LABS: Amphetamine Urine NEGATIVE (<1000 ng/mL); Barbiturate Urine NEGATIVE (< 200 ng/mL); Benzodiazepine Urine PRESUMPTIVE POSITIVE (< 200 ng/mL); Buprenorphine Urine NEGATIVE (< 200 ng/mL); Cocaine Urine NEGATIVE (< 300 ng/mL); Fentanyl, Urine NEGATIVE; Methadone Urine NEGATIVE (< 300 ng/mL); Opiates Urine NEGATIVE (< 300 ng/mL); Oxycodone, Urine PRESUMPTIVE POSITIVE (< 100 ng/mL); PCP Urine NEGATIVE (< 25 ng/mL); THC Urine PRESUMPTIVE POSITIVE (< 50 ng/mL)
[2024-12-06 20:49] LABS: Internal QC Validated? YES +Cl - CLEAR BKGD; Pregnancy, Serum, hCG Quali. NEGATIVE Negative; Record Kit Lot#, Serum Preg. 947241
[2024-12-06 21:00] VITALS: BP 123/78; PULSE 70; PULSE 75; RESP 18; TEMP 36.1; TEMP 36.6; O2SAT 100; O2SAT 97
--- NOTE | 2024-12-06 21:15 | HP.PCM.HOS_ITS ---
HPI - General General Date of Admission: 12/06/24 Date of Service: 12/06/24 Chief Complaint: Opiate detox HPI Narrative NEEL MEDINA, is a 44 F who presented to the emergency department at [facility] on 12/06/2024 requesting opiate detox. Patient reports she has a history of heroin abuse and has been clean with regard to heroin for several years. She states 2 years ago she had a shoulder injury and had been placed on narcotics at that time and has been addicted to them since. She is being prescribed opiates by Brandy Moore and her last prescription was on 12/03/2024. Patient states she has been trying to wean opiates on her own but is not having success and presented here for assistance. She states she gets up to about 12 hours without medication but has severe withdrawal so she has to take a dose of medication. The last dose she took was the morning prior to presentation. At the time of my evaluation she was having some mild nausea, headache, and muscle aches but was feeling well otherwise. She does smoke tobacco and request a nicotine patch. She also admits to smoking marijuana but denies any other illicit drug use. Denies alcohol use. Vital signs on presentation shows temperature of 98.3, heart rate 98, respiratory 16, blood pressure is 120/75 and pulse ox was 98% on room air. CBC was unremarkable. Chemistry panel was unremarkable. Toxicology screen was positive for oxycodone, benzodiazepines (which she is prescribed), and cannabinoids. test was negative She will be admitted for detox. [facility] Medical History Substance abuse Congestive heart failure (CHF) Marijuana use Right rotator cuff tear Wears partial dentures Hepatitis Smoker History of echocardiogram History of stress test Cardiology follow-up encounter History of CHF (congestive heart failure) Esophageal tear Anxiety Home Medications Medication Instructions Recorded Last Taken Type trazodone 100 mg tablet 100 mg PO QHS sleep 01/03/17 12/05/24 History inhalational spacing device 10/09/23 Unknown History (BreatheRite MDI Spacer) tizanidine 4 mg tablet 4 mg PO Q6H PRN PRN muscle 0 02/27/24 12/06/24 History relaxation oxycodone 10 mg tablet 10 mg PO Q6H PRN pain 2 days #8 12/01/24 Unknown Rx tabs albuterol sulfate 90 mcg/actuation 2 puff inhalation Q 4H PRN PRN 12/06/24 Unknown History aerosol inhaler wheezing alprazolam 0.5 mg tablet 0.5 mg PO BID PRN PRN anxiet y 12/06/24 12/04/24 History ondansetron HCl 4 mg tablet 4 mg PO TID PRN PRN nausea /vomiting 12/06/24 12/06/24 History Allergy/AdvReac Type Severity Reaction Status Date / Time escitalopram (From Lexapro) Allergy Other Verified 12/06/24 18:54 lamotrigine (From Lamictal) Allergy Hives Verified 12/06/24 18:54 nitrofurantoin (From Allergy Unknown Verified 12/06/24 18:54 Macrobid) nitrofurantoin Allergy Unknown Verified 12/06/24 18:54 macrocrystalline (From Macrobid) codeine AdvReac Nausea Verified 12/06/24 18:54 Family History Mother Anxiety Hypertension High cholesterol Diabetes Depression Father Hypertension Surgical History History of tubal ligation History of lumpectomy of right breast History of repair of rotator cuff Hx of surgical procedure Hx of removal of ovary History of tonsillectomy and adenoidectomy Social History household members: family housing: house Smoking Status: Current every day smoker tobacco type: cigarettes substance use type: marijuana additional social history: pt does not vape, does not take aspirin, pt does report using marijuana daily,does uses edibles on occassion, does use ibuprofen as needed. ROS Constitutional Constitutional: Reports chills; Denies anorexia, change in weight, fatigue, fever(s), malaise, night sweats, weakness or other Eyes Eyes: Denies blurry vision, change in eye color, change in vision, discharge from eye(s), double vision, erythema, eye pain, loss of vision or other ENT HEENT: Denies abnormal hearing, dysphagia, ear pain, epistaxis, headache(s), hearing loss, nasal congestion, nasal discharge, post nasal drip, sinus pressure, sore throat or other Cardiovascular Cardiovascular: Denies chest pain, claudication, dyspnea on exertion, edema, lightheadedness, orthopnea, palpitations, paroxysmal nocturnal dyspnea, rapid heart rate, syncope or other Respiratory/Chest Respiratory/Chest: Denies cough, dyspnea, excessive phlegm production, hemoptysis, productive cough, shortness of breath at rest, shortness of breath with exertion, wheezing or other Gastrointestinal Gastrointestinal: Reports nausea; Denies abdominal pain, coffee ground emesis, constipation, diarrhea, dyspepsia, hematemesis, hematochezia, loose stools, melena, vomiting or other Genitourinary Genitourinary: Denies burning urination, difficulty urinating, dysuria, hematuria, nocturia, urinary frequency, urinary hesitancy, urinary incontinence, urinary urgency or other Musculoskeletal Musculoskeletal: Reports myalgias; Denies arthralgias, back pain, joint pain, joint stiffness, joint swelling, neck pain or other Neurologic Neurologic: Reports headache(s); Denies abnormal gait, abnormal speech, confusion, disequilibrium, dizziness, focal weakness, numbness, paresthesias, seizure-like activity, seizures, syncope, tingling, tremor(s) or other Psychiatric Psychiatric: Denies anxiety, depression, homicidal ideation, suicidal ideation or other Endocrine Endocrinology: Denies change in body appearance, cold intolerance, excessive sweating, heat intolerance, polydipsia, polyuria or other Hematologic/Lymphatic Hematologic/Lymphatic: Denies anemia, easy bleeding, easy bruising, lymphadenopathy or other Allergic/Immunologic Allergic/Immunologic: Denies rhinitis, hives, eczemia, asthma or other Vital Signs Vital Signs Vital Signs: 12/06/24 18:52 12/06/24 19:52 12/06/24 20:00 Temperature 98.3 F Temperature Source Oral Pulse Rate 98 78 80 Respiratory Rate 16 18 17 Blood Pressure 120/75 120/70 Blood Pressure Mean 90 86 Pulse Ox 98 98 98 Oxygen Delivery Method Room Air Room Air Room Air 12/06/24 21:00 12/06/24 21:00 Temperature 97 F L 98 F Temperature Source Oral Pulse Rate 70 75 Respiratory Rate 18 18 Blood Pressure 123/78 H 123/78 H Blood Pressure Mean 93 93 Pulse Ox 97 100 Oxygen Delivery Method Room Air Weight Weight: 55.99 kg Body Mass Index (BMI) 20.5 Physical Exam Const alert, oriented x3, no apparent distress, average body habitus and well nourished Constitutional Narrative: Middle-aged, white female, sitting up in bed, appears older than stated age, appears comfortable and nontoxic, nursing at bedside General Appearance: cooperative HEENT normocephalic, head/scalp atraumatic and moist oral mucous membranes Resp normal respiratory effort, no retractions, no use of accessory muscles and clear to auscultation bilaterally Resp Narrative: Diffusely diminished but clear Auscultation: Negative for rales, rhonchi or wheezes Cardio regular rate, regular rhythm, S1 normal heart sound, S2 normal heart sound, no murmurs, no rub, no gallops and no clicks GI normal to inspection, nondistended, normoactive bowel sounds, soft to palpation and non-tender Extremity no clubbing, cyanosis or edema Extremity Narrative: 2+ pedal pulses Neuro moves all extremities Speech: speech normal Psych affect normal Mood & Affect: anxious Results Lab / Micro Data 12/06/24 19:50 12/06/24 19:50 Labs: Laboratory Results - last 24 hr 12/06/24 19:50: WBC 9.2, RBC 4.23, Hgb 13.5, Hct 38.5, MCV 91.0, MCH 31.9, MCHC 35.1, RDW Std Deviation 40.9, RDW Coeff of Denys 12.3, Plt Count 273, MPV 10.0, Immature Gran % (Auto) 0.200, Neut % (Auto) 59.6, Lymph % (Auto) 30.5, Mchenry % (Auto) 7.5, Eos % (Auto) 1.1, Baso % (Auto) 1.1 H, Absolute Neuts (auto) 5.5, Absolute Lymphs (auto) 2.81, Nucleated RBC % 0, Sodium 137, Potassium 3.7, Chloride 102, Carbon Dioxide 24.2, Anion Gap 11, BUN 3 L, Creatinine 0.64 L, Estim Creat Clear Calc 101.21, Est GFR (MDRD) Non-Af 113, BUN/Creatinine Ratio 4.6 L, Glucose 117 H, Calcium 8.8, Total Bilirubin 0.19, AST 22, ALT 11, Alkaline Phosphatase 62, Total Protein 6.2, Albumin 3.8, Globulin 2.4, Albumin/Globulin Ratio 1.6, Serum , Qual NEGATIVE, Urine Opiates Screen NEGATIVE, U Buprenorphine Qual NEGATIVE, Ur Oxycodone Screen PRESUMPTIVE POSITIVE, Urine Methadone Screen NEGATIVE, Urine Fentanyl Screen NEGATIVE, Ur Barbiturates Screen NEGATIVE, Ur Phencyclidine Scrn NEGATIVE, Ur Amphetamines Screen NEGATIVE, U Benzodiazepines Scrn PRESUMPTIVE POSITIVE, Urine Cocaine Screen NEGATIVE, U Cannabinoids Screen PRESUMPTIVE POSITIVE, Ethyl Alcohol < 10.1 Assessment & Plan Assessment/Plan (1) Desire for detoxification: (2) Opiate dependence: PLAN: Plan Prescription opiate dependence with desire for detoxification - Patient has been prescribed the opiates she has been taking -Has tried to wean off at home but been unsuccessful with significant symptoms related to withdrawal - Denies any IV drug use or buying drugs off the street - Admits to concomitant marijuana use - Start buprenorphine taper per [facility] protocol - Supportive medication for symptom management - 180 consultation for assistance with discharge planning History of IV drug use-heroin - Patient has been sober from heroin for significant amount of time - No recent IV drug use History of hepatitis C - Unclear if it is active or cleared infection -No serology available here - Liver functions appear to be normal History of cardiomyopathy - currently stable History of upper GI bleed - Was the result of an esophageal tear - No further issues with this diagnosed in 2017 Anxiety - Continue home Xanax Insomnia - Continue home trazodone Tobacco abuse - Recommend cessation - Nicotine patch available DVT prophylaxis - Low risk - Encourage early and frequent ambulation CODE STATUS - Full code Charges/Coding Visit Charges Inpatient E&M: 69468 Init Hosp L2
--- OUTSIDE RECORDS SUMMARY | 2024-12-06 21:34 | XMS RPT_ITS | CCD ---
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 [place], [address] RDW SD 43.9 fl Normal 35.1-43.9 [facility] Comment on above: Performed By: #### L 100.0100, L501.2450, L500.4050, L700.6800 #### [facility] Laboratory [address] [place], [address] WBC (Bld) [#/Vol] 21.5 10*3/uL High 4.4-11.0 [facility] Comment on above: Performed By: #### L 100.0100, L501.2450, L500.4050, L700.6800 #### [facility] Laboratory [address] [place], [address] Comprehensive Metabolic Prof ilon 08-26-2024 Albumin [Mass/Vol] 5.0 g/dL Normal 3.5-5.0 [facility] Comment on above: Performed By: #### L 100.0100, L501.2450, L500.4050, L700.6800 #### [facility] Laboratory [address] [place], [address] Albumin/Globulin [Mass ratio] 1.5 {ratio} Normal 0.9-2.4 [facility] Comment on above: Performed By: #### L 100.0100, L501.2450, L500.4050, L700.6800 #### [facility] Laboratory [address] [place], [address] ALK PHOS 83 U/L Normal 35-104 [facility] Comment on above: Performed By: #### L 100.0100, L501.2450, L500.4050, L700.6800 #### [facility] Laboratory [address] [place], [address] ALT [Catalytic activity/Vol] 11 U/L Normal <=34 [facility] Comment on above: Performed By: #### L 100.0100, L501.2450, L500.4050, L700.6800 #### [facility] Laboratory [address] [place], [address] Anion gap [Moles/Vol] 15 mmol/L Normal 5-15 [facility] Comment on above: Performed By: #### L 100.0100, L501.2450, L500.4050, L700.6800 #### [facility] [address] [place], [address] AST [Catalytic activity/Vol] 25 U/L Normal <=31 [facility] Comment on above: Result Comment: Hemo lysis present, Results??could be affected. ?? Performed By: #### L 100.0100, L501.2450, L500.4050, L700.6800 #### [facility] Laboratory [address] [place], [address] Bilirubin [Mass/Vol] 0.50 mg/dL Normal 0.00-1.30 [facility] Comment on above: Performed By: #### L 100.0100, L501.2450, L500.4050, L700.6800 #### [facility] Laboratory [address] [place], [address] BUN/CRE 9.2 RATIO Low 10-20 [facility] Comment on above: Performed By: #### L 100.0100, L501.2450, L500.4050, L700.6800 #### [facility] Laboratory [address] [place], [address] Calcium [Mass/Vol] 9.4 mg/dL Normal 7.6-11.0 [facility] Comment on above: Performed By: #### L 100.0100, L501.2450, L500.4050, L700.6800 #### [facility] Laboratory [address] [place], [address] Chloride [Moles/Vol] 104 mmol/L Normal 96-108 [facility] Comment on above: Performed By: #### L 100.0100, L501.2450, L500.4050, L700.6800 #### [facility] Laboratory [address] [place], [address] CO2 [Moles/Vol] 25.8 mmol/L Normal 22.0-29.0 [facility] Comment on above: Performed By: #### L 100.0100, L501.2450, L500.4050, L700.6800 #### [facility] Laboratory [address] [place], [address] Creatinine [Mass/Vol] 0.93 mg/dL Normal 0.70-1.20 [facility] Comment on above: Performed By: #### L 100.0100, L501.2450, L500.4050, L700.6800 #### [facility] Laboratory [address] [place], [address] ECRCL 70.14 ml/min Normal 50-250 [facility] Comment on above: Performed By: #### L 100.0100, L501.2450, L500.4050, L700.6800 #### [facility] Laboratory [address] [place], [address] GFR/1.73 sq M.predicted among non-blacks MDRD (S/P/Bld) [Vol rate/Area] 79 mL/min/{1.73_m2} Normal >60 [facility] Comment on above: Result Comment: mL/m in/1.73m2 CKD-EPI Creatinine Equation (2020) Performed By: #### L 100.0100, L501.2450, L500.4050, L700.6800 #### [facility] Laboratory [address] [place], [address] Globulin (S) [Mass/Vol] 3.3 g/dL Normal 2.2-4.2 [facility] Comment on above: Performed By: #### L 100.0100, L501.2450, L500.4050, L700.6800 #### [facility] Laboratory [address] [place], [address] Glucose [Mass/Vol] 129 mg/dL High 70-99 [facility] Comment on above: Performed By: #### L 100.0100, L501.2450, L500.4050, L700.6800 #### [facility] Laboratory [address] [place], [address] Potassium [Moles/Vol] 3.9 mmol/L Normal 3.3-5.1 [facility] Comment on above: Result Comment: Hemo lysis present, Results??could be affected. ?? Performed By: #### L 100.0100, L501.2450, L500.4050, L700.6800 #### [facility] [address] [place], [address] Sodium [Moles/Vol] 145 mmol/L Normal 133-145 [facility] Comment on above: Performed By: #### L 100.0100, L501.2450, L500.4050, L700.6800 #### [facility] Laboratory [address] [place], [address] T PROT 8.3 g/dL Normal 5.9-8.4 [facility] Comment on above: Performed By: #### L 100.0100, L501.2450, L500.4050, L700.6800 #### [facility] Laboratory [address] [place], [address] Urea nitrogen [Mass/Vol] 9 mg/dL Normal 4-19 [facility] Comment on above: Performed By: #### L 100.0100, L501.2450, L500.4050, L700.6800 #### [facility] Laboratory [address] [place], [address] Emergency Department Summary on 08-26-2024 Emergency Department Summary [facility] Medical Records Department [address] [place] [address] Emergency Department Summary 08/26/24 MR#: [id number] Acct: [id number] Name: PAT KNIGHT Rep #: [id number] : 1980 44 From: Xavi Biggs MD [...] significant abdominal cramping. She states she cannot "stop pooping and vomiting". Patient denies any blood in her stool or vomit. Patient only states that she had a ovarian surgery on her abdomen. This was several years ago. Here for evaluation. [facility] Medical History Marijuana use Right rotator cuff [...] auscultation bilaterally. (more content not included)... Normal [facility] Lipaseon 08-26-2024 Lipase [Catalytic activity/Vol] 79 U/L High 13-75 [facility] Comment on above: Result Comment: Padma gee note: LIPASE revised reference range effective 22. New Lipase methodology. Expected to produce lower values than the previous assay method. NEW Reference Range: 13 - 75 U/L Performed By: #### L 100.0100, L501.2450, L500.4050, L700.6800 #### [facility] Laboratory [address] [place], [address] M100.678on 08-26-2024 M100.678 Pending SARS-CoV-2 (COVID 19) Negative INFLUENZA A Negative INFLUENZA B Negative RSV PCR Negative Normal [facility] Comment on above: Performed By: #### M 100.678 ####[facility] [address] [place], [address] ,Serum,hCG Quali.on 08-26-2024 HCG, SERUM QUAL Negative Normal [facility] Comment on above: Performed By: #### L 700.6800 #### [facility] Laboratory [address] [place], [address] Urinalysis, Completeon 08-26 AMORPHOUS 1+ URATE Normal [facility] Comment on above: Order Comment: CANDIDO CTOR TO SPECIFY Performed By: #### L 400.0001 #### [facility] Laboratory [address] [place], [address] EPI,SQUAMOUS 0-5 SEEN Normal 5-10 [facility] Comment on above: Order Comment: CANDIDO CTOR TO SPECIFY Performed By: #### L 400.0001 #### [facility] Laboratory [address] [place], [address] RBC 0-5 SEEN Normal 0-5 [facility] Comment on above: Order Comment: CANDIDO CTOR TO SPECIFY Performed By: #### L 400.0001 #### [facility] Laboratory [address] [place], [address] WBC 0-5 SEEN Normal 0-5 [facility] Comment on above: Order Comment: CANDIDO CTOR TO SPECIFY Performed By: #### L 400.0001 #### [facility] Laboratory [address] [place], [address] BACTERIA 0 SEEN Normal None Seen [facility] Comment on above: Order Comment: CANDIDO CTOR TO SPECIFY Performed By: #### L 400.0001 #### [facility] Laboratory [address] [place], [address] Mucus Ql (Urine sed) 0 SEEN Normal [facility] Comment on above: Order Comment: COLLE CTOR TO SPECIFY Performed By: #### L 400.0001 #### [facility] Laboratory [address] [place], [address] CNPNon 08-18-2024 CNPN Normal [facility] Plastic Surgery Visit Report on 08-14-2024 Plastic Surgery Visit Report [facility] Plastic Reconstructive Surgery [address] [place] [address] OFFICE VISIT Date of Service: 08/14/24 MR#: [id number] Acct: [id number] Name: PAT KNIGHT Rep #: [id number] : 1980 Provider: Dr. Constanza esposito MD Age/Sex: 44/F Location[place] [facility] [place] Status: Signed Intake Vital Signs 07/20/24 21:43 [...] Foreign body reaction of the skin L92.3 PFS Medical History Marijuana use Right rotator cuff [...] needed 08/14/24 1640 Date Constanza Cordova MD Cosign Signature: Date (if applicable) CC: [facility] CNPNon 08-08-2024 CNPN [facility] Large Joint Arthro/Inj: R sh mansi jointon 08-03-2024 Louis Valencia MD 08/03/2024 3:34 [...] the patient voiced understanding of these instructions. [facility] CNOVon 07-31-2024 CNOV [facility] CNOVon 07-27-2024 CNOV [facility] Emergency Department Summary on 07-20-2024 Emergency Department Summary [facility] Medical Records Department [address] [place] [address] Emergency Department Summary 07/20/24 MR#: [id number] Acct: [id number] Name: PAT KNIGHT Rep #: [id number] : 1980 44 From: Cesar Meneses DO [...] days. Therefore since she has been taking xvgf-klv-[id number] medication as well as her prescription medication without symptom improvement she presents for pain control. [facility] Medical History Marijuana use Right rotator cuff [...] intact; AIN/ (more content not included)... Normal [facility] Discharge Instructionon 06-28 Discharge Instruction [facility] Medical Records Department [address] [place] [address] Instructions for Home/Discharge Instructions 07/19/24 1251 MR#: [id number] Acct: [id number] Name: PAT KNIGHT Rep #: [id number] : 1980 44 From: Constanza Cordova MD PCP: Dr. Maile Norman MD Status[place] [facility] [place]charge Instructions Dressing / Incision Additional Dressing/Incision [...] Care Provider: Maile Norman Instructions Print Language: Kazakh Discharge Orders/Prescriptions Prescriptions: New cephalexin 500 mg [...] MD CC: Dr. Maile Norman MD Signed [facility] MR/POSTOP.ANEon 07-19-2024 MR/POSTOP.[facility] Medical Records Department [address] [place] [address] Anesthesia Postop Eval I 07/19/24 1257 MR#: [id number] Acct: [id number] Name: PAT KNIGHT Rep #: [id number] : 1980 44 From: Trinity Wright CRNA PCP: Dr. Maile Norman MD Status:[facility] Y Race: C Location: [place] [address] Anesthesia: Postop Eval I Current Vital Signs [...] completed: Yes 07/19/24 1258 Date Trinity Wright CRNA Cosigner Signature: Date CC: Signed [facility] MR/[id number] 07-19-2024 MR/POSTOPAN2 [facility] Medical Records Department [address] [place] [address] Anesthesia Postop Eval II 07/19/24 1914 MR#: [id number] Acct: [id number] Name: PAT KNIGHT Rep #: [id number] : 1980 44 From: Samy Rae MD PCP: Dr. Maile Norman MD Status:[facility] [facility]: [place] [facility] [place] Postop Eval I Sum Postop Eval Completion status Anesthesia document: Postop Eval 1 completed: Yes Anesthesia Postop Eval I Summary Anesthesia Postop Eval I Summary: Anesthesia Postop Eval I: Assessment Summary Airway patent Yes 07/19/24 12:58 CLERICAL SECRETARY.JSWI Spontaneous unlabored Yes 07/19/24 12:58 CLERICAL SECRETARY.JSWI respirations Mental status Awake 07/19/24 12:58 CLERICAL SECRETARY.JSWI nausea No 07/19/24 12:58 CLERICAL SECRETARY.JSWI Vomiting No 07/19/24 12:58 CLERICAL SECRETARY.JSWI Anesthesia Postop Eval I: Fluid Summary Crystalloid volume administer 1,200 07/19/24 12:58 CLERICAL SECRETARY.JSWI (ml) Colloids volume administered ( ml) Blood Product volume administered (ml) Total IV fluid infused 1,200 07/19/24 12:58 CLERICAL SECRETARY.JSWI Anesthesia Postop Eval I: Summary Notes Anesthesia Complication No 07/19/24 12:58 CLERICAL SECRETARY.JSWI Anesthesia Complication Comment: Post-operative progress note Anesthesia: Postop Eval II Evaluation Mental status: Awake and Calm Pain Level: 1 nausea: No Vomiting: No Complications Anesthesia Complication: No 07/19/24 1914 Date Samy Rae MD Cosigner Signature: Date CC: Signed Normal [facility] Operative Reporton 5 Operative Report [facility] Medical Records Department [address] [place] [address] Operative Report 07/19/24 1254 MR#: [id number] Acct: [id number] Name: PAT KNIGHT Rep #: [id number] : 1980 44 From: Constanza Cordova MD PCP: Dr. Maile Norman MD Status:[facility] Location: [place] [address] Problems Associated Problem List Diagnoses (1) Neoplasm of uncertain behavior of connective and other soft tissue: Operative Report (Standard) Operative Information Date of Procedure: 07/19/24 Pre-Operative Diagnosis: Subcutaneous cyst left forearm Post-Operative Diagnosis: Same Surgery/Procedure Performed: Excision cyst left forearm (3.0 cm) secured entrance monitor: No Type of Anesthesia: General RN Documented [...] Documentation VTE Mechan Device Prophylaxis: SCD's 07/19/24 8644 Cosigner Signature (if applicable): CC: Dr. Maile Norman MD; Dr. Constanza Cordova MD Signed Normal [facility] Surgery Specimen Level IIIon 07-19-2024 Surgery Specimen Level III -------- Patient Age/Sex Location Account Attending Physician -------- PAT KNIGHT 44/F [facility] [id number] Dr. Constanza Cordova MD -------- Specimen: [id number] Received: 07/19/24 Status: JEAN Bro Num: [id number] Spec Type: Cyst Subm Dr: Dr. Constanza Cordova MD HEADER OPERATION: Excision cyst left forearm (2cm) PRE-OP DIAGNOSIS: Cyst left forearm TISSUE SUBMITTED: Cyst, left forearm -------- MICROSCOPIC DIAGNOSIS Left forearm cyst, excision: Acute and chronic inflammation, abscess formation and foreign body giant cell reaction. Negative for malignancy. See comment. 07/20/2024 COMMENT A foreign body (splinter) is noted in the area of inflammation and abscess formation. Clinical correlation and appropriate follow up are necessary. MICROSCOPIC DESCRIPTION Slides are reviewed. GROSS DESCRIPTION Received in fixative is one container labeled with the patient's name and designated "Cyst, left forearm." The specimen consists of a piece of castanon-white skin ellipse measuring 1.5 x 1cm and up to 0.2cm in thickness. The specimen is inked, serially sectioned and submitted entirely in one cassette. 07/19/2024 TC:2 CPT:11608 -------- Patient Age/Sex Location Account Attending Physician -------- PAT KNIGHT 44/F [facility] [id number] Dr. Constanza Cordova MD -------- Signed (signature on file) Dr. Dusty Armstrong MD 07/20/24 1244 -------- Normal [facility] Comment on above: Performed By: #### P SUIII ####[facility] [id number] [place], [address] CNPNon 07-16-2024 CNPN Normal [facility] CBC W Auto Differential pane l (Bld)on 07-13-2024 Basophils (Bld) [#/Vol] 0.10 10*3/uL [facility] Basophils/100 WBC (Bld) 1.0 % [facility] Differential cell count method Nom (Bld) Auto [facility] Eosinophils (Bld) [#/Vol] 0.27 10*3/uL [facility] Eosinophils/100 WBC (Bld) 2.7 % [facility] Erythrocyte distribution width (RBC) [Ratio] 12.2 % 11.5 - 15.0 % [facility] Hematocrit (Bld) [Volume fraction] 41.9 % 36.0 - 46.0 % [facility] Hemoglobin (Bld) [Mass/Vol] 14.2 g/dL 11.5 - 15.5 g/dL [facility] Immature granulocytes (Bld) [#/Vol] 0.03 10*3/uL [facility] Immature granulocytes/100 WBC (Bld) 0.3 % [facility] Lymphocytes (Bld) [#/Vol] 3.19 10*3/uL [facility] Lymphocytes/100 WBC (Bld) 32.4 % [facility] MCH (RBC) [Entitic mass] 32.1 pg 26.0 - 34.0 pg [facility] MCHC (RBC) [Mass/Vol] 33.9 g/dL 30.5 - 36.0 g/dL [facility] MCV (RBC) [Entitic vol] 94.6 fL 80.0 - 100.0 fL [facility] Monocytes (Bld) [#/Vol] 0.74 10*3/uL [facility] Monocytes/100 WBC (Bld) 7.5 % [facility] Neutrophils (Bld) [#/Vol] 5.52 10*3/uL [facility] Neutrophils/100 WBC (Bld) 56.1 % [facility] Nucleated RBC (Bld) [#/Vol] NINF [facility] Nucleated RBC/100 WBC (Bld) [Ratio] 0.0 % /100 WBC [facility] Platelet mean volume (Bld) [Entitic vol] 9.6 fL 9.0 - 12.7 fL [facility] Platelets (Bld) [#/Vol] 308 10*3/uL [facility] RBC (Bld) [#/Vol] 4.43 10*6/uL 3.90 - 5.2 0 m/uL [facility] WBC (Bld) [#/Vol] 9.85 10*3/uL [facility] Basophils (Bld) [#/Vol] 0.10 10*3/uL Normal <0.11 [facility] Comment on above: Order Comment: Speci men Type: BLOOD SPECIMENOrdering Facility: [facility] Address: [address] [place] [address] Performed By: #### 5 7021-8 ####[facility] LABCLIA [id number] [place] [address] [place] Basophils/100 WBC (Bld) 1.0 % Normal [facility] Comment on above: Order Comment: Speci men Type: BLOOD SPECIMENOrdering Facility: [facility] Address: [address] [place] [address] Performed By: #### 5 7021-8 ####[facility] LABIA [id number] [place] [address] [place] Differential cell count method Nom (Bld) Auto Normal [facility] Comment on above: Order Comment: Speci men Type: BLOOD SPECIMENOrdering Facility: [facility] Address: [address] [place] [address] Performed By: #### 5 7021-8 ####[facility] LABCLIA [id number] [place] [address] [place] Eosinophils (Bld) [#/Vol] 0.27 10*3/uL Normal <0.46 [facility] Comment on above: Order Comment: Speci men Type: BLOOD SPECIMENOrdering Facility: [facility] Address: [address] [place] [address] Performed By: #### 5 7021-8 ####[facility] LABCLIA [id number] [place] [address] [place] Eosinophils/100 WBC (Bld) 2.7 % Normal [facility] Comment on above: Order Comment: Speci men Type: BLOOD SPECIMENOrdering Facility: [facility] Address: [address] [place] [address] Performed By: #### 5 7021-8 ####[facility] LABCLIA [id number] [place] [address] [place] Erythrocyte distribution width (RBC) [Ratio] 12.2 % Normal 11.5-15.0 [facility] Comment on above: Order Comment: Speci men Type: BLOOD SPECIMENOrdering Facility: [facility] Address: [address] [place] [address] Performed By: #### 5 7021-8 ####[facility] LABCLIA [id number] [place] [address] [place] Hematocrit (Bld) [Volume fraction] 41.9 % Normal 36.0-46.0 [facility] Comment on above: Order Comment: Speci men Type: BLOOD SPECIMENOrdering Facility: [facility] Address: [address] [place] [address] Performed By: #### 5 7021-8 ####[facility] LABCLIA [id number] [place] [address] [place] Hemoglobin (Bld) [Mass/Vol] 14.2 g/dL Normal 11.5-15.5 [facility] Comment on above: Order Comment: Speci men Type: BLOOD SPECIMENOrdering Facility: [facility] Address: [address] [place] [address] Performed By: #### 5 7021-8 ####[facility] LABCLIA [id number] [place] [address] [place] Immature granulocytes (Bld) [#/Vol] 0.03 10*3/uL Normal <0.10 [facility] Comment on above: Order Comment: Speci men Type: BLOOD SPECIMENOrdering Facility: [facility] Address: [address] [place] [address] Performed By: #### 5 7021-8 ####[facility] LABCLIA [id number] [place] [address] [place] Immature granulocytes/100 WBC (Bld) 0.3 % Normal [facility] Comment on above: Order Comment: Speci men Type: BLOOD SPECIMENOrdering Facility: [facility] Address: [address] [place] [address] Performed By: #### 5 7021-8 ####[facility] LABCLIA [id number] [place] [address] [place] Lymphocytes (Bld) [#/Vol] 3.19 10*3/uL Normal 1.00-4.00 [facility] Comment on above: Order Comment: Speci men Type: BLOOD SPECIMENOrdering Facility: [facility] Address: [address] [place] [address] Performed By: #### 5 7021-8 ####[facility] LABCLIA [id number] [place] [address] [place] Lymphocytes/100 WBC (Bld) 32.4 % Normal [facility] Comment on above: Order Comment: Speci men Type: BLOOD SPECIMENOrdering Facility: [facility] Address: [address] [place] [address] Performed By: #### 5 7021-8 ####[facility] LABCLIA [id number] [place] [address] [place] MCH (RBC) [Entitic mass] 32.1 pg Normal 26.0-34.0 [facility] Comment on above: Order Comment: Speci men Type: BLOOD SPECIMENOrdering Facility: [facility] Address: [address] [place] [address] Performed By: #### 5 7021-8 ####[facility] LABIA [id number] [place] [address] [place] MCHC (RBC) [Mass/Vol] 33.9 g/dL Normal 30.5-36.0 [facility] Comment on above: Order Comment: Speci men Type: BLOOD SPECIMENOrdering Facility: [facility] Address: [address] [place] [address] Performed By: #### 5 7021-8 ####[facility] LABIA [id number] [place] [address] [place] MCV (RBC) [Entitic vol] 94.6 fL Normal 80.0-100.0 [facility] Comment on above: Order Comment: Speci men Type: BLOOD SPECIMENOrdering Facility: [facility] Address: [address] [place] [address] Performed By: #### 5 7021-8 ####[facility] LABCLIA [id number] [place] [address] [place] Monocytes (Bld) [#/Vol] 0.74 10*3/uL Normal <0.87 [facility] Comment on above: Order Comment: Speci men Type: BLOOD SPECIMENOrdering Facility: [facility] Address: [address] [place] [address] Performed By: #### 5 7021-8 ####[facility] LABCLIA [id number] [place] [address] [place] Monocytes/100 WBC (Bld) 7.5 % Normal [facility] Comment on above: Order Comment: Speci men Type: BLOOD SPECIMENOrdering Facility: [facility] Address: [address] [place] [address] Performed By: #### 5 7021-8 ####[facility] LABCLIA [id number] [place] [address] [place] Neutrophils (Bld) [#/Vol] 5.52 10*3/uL Normal 1.45-7.50 [facility] Comment on above: Order Comment: Speci men Type: BLOOD SPECIMENOrdering Facility: [facility] Address: [address] [place] [address] Performed By: #### 5 7021-8 ####[facility] LABCLIA [id number] [place] [address] [place] Neutrophils/100 WBC (Bld) 56.1 % Normal [facility] Comment on above: Order Comment: Speci men Type: BLOOD SPECIMENOrdering Facility: [facility] Address: [address] [place] [address] Performed By: #### 5 7021-8 ####[facility] LABCLIA [id number] [place] [address] [place] Nucleated RBC (Bld) [#/Vol] 10*3/uL Normal <0.01 [facility] Comment on above: Order Comment: Speci men Type: BLOOD SPECIMENOrdering Facility: [facility] Address: [address] [place] [address] Performed By: #### 5 7021-8 ####[facility] LABCLIA [id number] [place] [address] [place] Nucleated RBC/100 WBC (Bld) [Ratio] 0.0 /100 WBC Normal [facility] Comment on above: Order Comment: Speci men Type: BLOOD SPECIMENOrdering Facility: [facility] Address: [address] [place] [address] Performed By: #### 5 7021-8 ####[facility] LABIA [id number] [place] [address] [place] Platelet mean volume (Bld) [Entitic vol] 9.6 fL Normal 9.0-12.7 [facility] Comment on above: Order Comment: Speci men Type: BLOOD SPECIMENOrdering Facility: [facility] Address: [address] [place] [address] Performed By: #### 5 7021-8 ####[facility] LABIA [id number] [place] [address] [place] Platelets (Bld) [#/Vol] 308 10*3/uL Normal 150-400 [facility] Comment on above: Order Comment: Speci men Type: BLOOD SPECIMENOrdering Facility: [facility] Address: [address] [place] [address] Performed By: #### 5 7021-8 ####[facility] LABIA [id number] [place] [address] [place] RBC (Bld) [#/Vol] 4.43 10*6/uL Normal 3.90-5.20 [facility] Comment on above: Order Comment: Speci men Type: BLOOD SPECIMENOrdering Facility: [facility] Address: [address] [place] [address] Performed By: #### 5 7021-8 ####[facility] LABIA [id number] [place] [address] [place] WBC (Bld) [#/Vol] 9.85 10*3/uL Normal 3.70-11.00 [facility] Comment on above: Order Comment: Speci men Type: BLOOD SPECIMENOrdering Facility: [facility] Address: [address] [place] [address] Performed By: #### 5 7021-8 ####[facility] LABCLIA [id number] [place] [address] [place] CNOVon 07-13-2024 CNOV Normal [facility] Comprehensive metabolic 2000 panelon 07-13-2024 Albumin [Mass/Vol] 3.8 g/dL Low 3.9-4.9 [facility] Comment on above: Order Comment: Speci men Type: BLOOD SPECIMENOrdering Facility: [facility] Address: [address] [place] [address] Performed By: #### 2 4323-8 ####[facility] LABCLIA [id number] [place] [address] [place] ALP [Catalytic activity/Vol] 67 U/L Normal 34-123 [facility] Comment on above: Order Comment: Speci men Type: BLOOD SPECIMENOrdering Facility: [facility] Address: [address] [place] [address] Performed By: #### 2 4323-8 ####[facility] LABCLIA [id number] [place] [address] [place] ALT [Catalytic activity/Vol] 18 U/L Normal 7-38 [facility] Comment on above: Order Comment: Speci men Type: BLOOD SPECIMENOrdering Facility: [facility] Address: [address] [place], [place] [address] Performed By: #### 2 4323-8 ####[facility] LABCLIA [id number] [place] [id number] [place] Anion gap [Moles/Vol] 6 mmol/L Low 8-15 [facility] Comment on above: Order Comment: Speci men Type: BLOOD SPECIMENOrdering Facility: [facility] Address: [address] [place], [place] [address] Performed By: #### 2 4323-8 ####[facility] LABCLIA [id number] [place] [address] [place] AST [Catalytic activity/Vol] 21 U/L Normal 13-35 [facility] Comment on above: Order Comment: Speci men Type: BLOOD SPECIMENOrdering Facility: [facility] Address: [address] [place] [address] Performed By: #### 2 4323-8 ####[facility] LABCLIA [id number] [place] [address] [place] Bilirubin [Mass/Vol] mg/dL Low 0.2-1.3 [facility] Comment on above: Order Comment: Speci men Type: BLOOD SPECIMENOrdering Facility: [facility] Address: [address] [place] [address] Performed By: #### 2 4323-8 ####[facility] LABCLIA [id number] [place] [address] [place] Calcium [Mass/Vol] 9.0 mg/dL Normal 8.5-10.2 [facility] Comment on above: Order Comment: Speci men Type: BLOOD SPECIMENOrdering Facility: [facility] Address: [address] [place] [address] Performed By: #### 2 4323-8 ####[facility] LABCLIA [id number] [place] [address] [place] Chloride [Moles/Vol] 105 mmol/L Normal 98-107 [facility] Comment on above: Order Comment: Speci men Type: BLOOD SPECIMENOrdering Facility: [facility] Address: [address] [place], [place] [address] Performed By: #### 2 4323-8 ####[facility] LABCLIA [id number] [place] [address] [place] CO2 [Moles/Vol] 30 mmol/L Normal 22-30 [facility] Comment on above: Order Comment: Speci men Type: BLOOD SPECIMENOrdering Facility: [facility] Address: [address] [place] [id number] Performed By: #### 2 4323-8 ####[facility] LABIA [id number] [place] [address] [place] Creatinine [Mass/Vol] 0.79 mg/dL Normal 0.58-0.96 [facility] Comment on above: Order Comment: Specmarianna men Type: BLOOD SPECIMENOrdering Facility: [facility] Address: [address] [place] [address] Performed By: #### 2 4323-8 ####[facility] LABIA [id number] [place] [address] [place] Creatinine and Glomerular filtration rate.predicted panel (S/P/Bld) 96 mL/min/1.73m??? Normal >=60 [facility] Comment on above: Order Comment: Luana davenport Type: BLOOD SPECIMENOrdering Facility: [facility] Address: [address] [place] [address] Result Comment: Cristal mated Glomerular Filtration Rate [...] actual GFR. Performed By: #### 2 4323-8 ####[facility] LABIA [id number] [place] [address] [place] Glucose [Mass/Vol] 68 mg/dL Low 74-99 [facility] Comment on above: Order Comment: Anai men Type: BLOOD SPECIMENOrdering Facility: [facility] Address: [address] [place] [address] Result Comment: The [place] [employer] (ADA) provides guidance for cutoff [...] Standards of Medical Care in Diabetes 2016, [place] [employer]. Diabetes Care. 2016.39(Suppl 1). Performed By: #### 2 4323-8 ####[facility] LABCLIA [id number] [place] [address] [place] Potassium [Moles/Vol] 4.3 mmol/L Normal 3.7-5.1 [facility] Comment on above: Order Comment: Speci men Type: BLOOD SPECIMENOrdering Facility: [facility] Address: [address] [place] [address] Performed By: #### 2 4323-8 ####[facility] LABCLIA [id number] [place] [address] [place] Protein [Mass/Vol] 5.9 g/dL Low 6.3-8.0 [facility] Comment on above: Order Comment: Speci men Type: BLOOD SPECIMENOrdering Facility: [facility] Address: [address] [place] [address] Performed By: #### 2 4323-8 ####[facility] LABCLIA [id number] [place] [address] [place] Sodium [Moles/Vol] 141 mmol/L Normal 136-144 [facility] Comment on above: Order Comment: Speci men Type: BLOOD SPECIMENOrdering Facility: [facility] Address: [address] [place] [address] Performed By: #### 2 4323-8 ####[facility] LABCLIA [id number] [place] [address] [place] Urea nitrogen [Mass/Vol] 8 mg/dL Normal 7-21 [facility] Comment on above: Order Comment: Speci men Type: BLOOD SPECIMENOrdering Facility: [facility] Address: [address] [place] [address] Performed By: #### 2 4323-8 ####[facility] LABCLIA [id number] [place] [address] [place] CNOVon 07-11-2024 CNOV Normal [facility] Estradiol SerPl-mCncon 07-10 E2 [Mass/Vol] 380 pg/mL Normal [facility] Comment on above: Order Comment: Speci men Type: BLOOD SPECIMENOrdering Facility: [facility] Address: [address] [place] [address] Result Comment: This test is not suitable for patients receiving treatment with the drug Fulvestrant (Faslodex). The drug causes an interference leading to falsely elevated estradiol results.Menstrual cycle Estradiol reference ranges:Follicular : < 234 pg/mLOvulation : 41 to 398 pg/mLLuteal : < 342 pg/mLPregnancy Estradiol reference ranges vary by gestational period:First trimester : 154 to 3243 pg/mLSecond trimester : 1561 to 72529 pg/mLThird trimester : 8285 to >52247 pg/mLPost-menopausal Estradiol reference range: < 41 pg/mLReference: 1. Estradiol - E2 (Estradiol III) [package insert V 3.0 [place]]. [facility], [place], [place], November 2015. Performed By: #### 1 5067-2, 2243-4 ####[facility] LABCLIA [id number] [place] [address] [place] FSH SerPl-aCncon 07-10-2024 Follitropin Qn 13.9 m[IU]/mL Normal See comment [facility] Comment on above: Order Comment: Speci men Type: BLOOD SPECIMENOrdering Facility: [facility] Address: [address] [place] [address] Result Comment: Refe rence range: Follicular: 3.5-12.5 mIU/mL Ovulation: 4.7-21.5 mIU/mL Luteal: 1.7-7.7 mIU/mL Postmenopausal: 25.8-134.8 mIU/mL Performed By: #### 1 5067-2, 2243-4 ####[facility] LABCLIA [id number] [facility] [place] [address] [place] Plastic Surgery Visit Report on 07-10-2024 Plastic Surgery Visit Report [facility] Plastic Reconstructive Surgery [address], [address] [place] [address] OFFICE VISIT Date of Service: 07/10/24 MR#: [id number] Acct: [id number] Name: PAT KNIGHT Rep #: [id number] : 1980 Provider: Dr. Constanza esposito MD Age/Sex: 44/F Location[place] [facility] [place] Status: Signed Intake Vital Signs 07/03/24 09:54 [...] PO Q6H PRN PRN Pain 3 days 03/11/23 01/14/25 Rx mg tablet #12 TABLETS inhalational spacing [...] of connect (more content not included)... Normal [place] [facility] CNOVon 07-09-2024 CNOV Normal [facility] HIGH RISK HUMAN PAPILLOMA GENEVA (HPV), PCR FOR DETECTION AND GENOTYPINGon 07-09-2024 HPV 16 Ag Ql (Unsp spec) Not detected Normal Not detected [facility] Comment on above: Order Comment: Speci men Type: FLUID SPECIMENOrdering Facility: [facility] Address: [address] [place] [address] Performed By: #### H PVHRT ####[facility] LABCLIA [id number] [place] [address] [place] HPV 18 Ag Ql (Unsp spec) Not detected Normal Not detected [facility] Comment on above: Order Comment: Speci men Type: FLUID SPECIMENOrdering Facility: [facility] Address: [address] [place] [address] Performed By: #### H PVHRT ####[facility] LABCLIA [id number] [place] [address] [place] HPV 31+33+35+39+45+51+52+ 56+58+59+66+68 DNA MARY KAY+probe Ql (Cvx) Not detected Normal Not detected [facility] Comment on above: Order Comment: Speci men Type: FLUID SPECIMENOrdering Facility: [facility] Address: [address] [place] [address] Result Comment: High Risk HPV Other Type includes HPV types 31, 33, 35, 39, 45, 51, 52, 56, 58, 59, 66 and 68. Performed By: #### H PVHRT ####[facility] LABCLIA [id number] [place] [address] [place] PAP TESTon 07-09-2024 ADEQUACY Normal [facility] Comment on above: Order Comment: Speci men Type: FLUID SPECIMENOrdering Facility: [facility] Address: [address] [place] [address] Result Comment: Sati sfactory for interpretation.Limited cellularity due to acellular background materialNo endocervical component Performed By: #### L [id number] ####[facility] LABIA [id number] [place] [address] [place] CASE REPORT Normal [facility] Comment on above: Order Comment: Speci men Type: FLUID SPECIMENOrdering Facility: [facility] Address: [address] [place] [address] Result Comment: Gyne cologic Cytology Report Case: [id number] Provider: Cecile Herndon APRN.PUTTY REMOVER Collected: 07/09/2024 08:18 AMOrdering Location: OB/Gynecology Received: 07/09/2024 12:35 PMFirst Screen: Clapacs, ElishaSpecimen: Pap Test, ThinPrep, Cervix Performed By: #### L [id number] ####[facility] LABCLIA [id number] [place] [address] [place] CLINICAL HISTORY, CYTOLOGY, OPERATIONS SPECIALIST Routine Exam Normal [facility] Comment on above: Order Comment: Speci men Type: FLUID SPECIMENOrdering Facility: [facility] Address: [address] [place] [address] Result Comment: No M enses, Other (Specify)ablation Performed By: #### L [id number] ####[facility] LABCLIA [id number] [place] [address] [place] FINAL PERFORMING LAB Normal [facility] Comment on above: Order Comment: Speci men Type: FLUID SPECIMENOrdering Facility: [facility] Address: [address] [place] [address] Result Comment: Tech nical component, hall porter screening performed at [facility], [address] [place] [address] CLIA# [id number] interpretation performed at [facility], [address] [place] [address] [place] [address] CLIA# [id number] Director: Jose Guadalupe Madden M.D. Performed By: #### L [id number] ####[facility] LABCLIA [id number] [place] [address] [place] INTERPRETATION, CYTOLOGY, OPERATIONS SPECIALIST Normal [facility] Comment on above: Order Comment: Speci men Type: FLUID SPECIMENOrdering Facility: [facility] Address: [address] [place] [address] Result Comment: Nega tive for intraepithelial lesion or malignancy. Performed By: #### L [id number] ####[facility] LABCLIA [id number] [address] [address] [place] PAP DISCLAIMER COMMENT The Pap Smear is a screening test for cervical cancer. False negative results occur with all screening tests, emphasizing the need for rescreening at recommended intervals, and clinical correlation. Normal [facility] Comment on above: Order Comment: Speci men Type: FLUID SPECIMENOrdering Facility: [facility] Address: [address] [place] [address] Performed By: #### L [id number] ####[facility] LABCLIA [id number] [address] [address] [place] PAP FLUME WORKER COMMENT Normal [facility] Comment on above: Order Comment: Speci men Type: FLUID SPECIMENOrdering Facility: [facility] Address: [address] [place] [address] Performed By: #### L [id number] ####[facility] LABIA [id number] [address] [address] [place] CNPNon 07-07-2024 CNPN Normal [facility] Forearm 2 Viewson 07-03-2024 Forearm 2 Views [facility] Imaging Services [address] [place] [address] Forearm 2 Views MR#: [id number] Acct: [id number] Name: PAT KNIGHT Rep #: [id number] : 1980 F 44 From: Tim Garcia MD PCP: Dr. Maile Norman MD Status: REG I Study: Forearm 2 Views Date of Exam: 07/03/24 Exam# [id number] Ordering Dr: Constanza Cordova MD [id number] STUDY: X-RAY - LEFT RADIUS AND ULNA [...] 16:05 EST Reading Location ID and State: [facility] / [place] , Service support , CC: Dr. Maile Norman MD; Dr. Constanza Cordova MD Adult Parole Officer: Signed Normal [facility] Plastic Surgery Visit Report on 07-03-2024 Plastic Surgery Visit Report [facility] Plastic Reconstructive Surgery [address] [facility], [address] [place], [place] [id number] OFFICE VISIT Date of Service: 07/03/24 MR#: [id number] Acct: [id number] Name: PAT KNIGHT Rep #: [id number] : 1980 Provider: Dr. Constanza esposito MD Age/Sex: 44/F Location: [facility] Status: Signed Intake Vital Signs 06/06/24 13:34 [...] pt here with for result of ultrasound [facility] Medical History Right rotator cuff tear Wears [...] vis,est,level 3 (more content not included)... Normal [facility] Emergency Department Summary on 07-02-2024 Emergency Department Summary [facility] Medical Records Department [address] [facility] [place] [address] Emergency Department Summary 07/02/24 MR#: [id number] Acct: [id number] Name: PAT KNIGHT Rep #: [id number] : 1980 44 From: John Bass DO [...] Excedrin. Patient denies any recent head injuries. [facility] Medical History Right rotator cuff tear Wears [...] mouth swellin (more content not included)... Normal [facility] Other Unlisted US Procedureo n 06-28-2024 Other Unlisted US Procedure [facility] Imaging Services [address] [place], [place] [id number] Other Unlisted US Procedure MR#: [id number] Acct: [id number] Name: PAT KNIGHT Rep #: [id number] : 1980 F 44 From: Deena Reardon MD PCP: Dr. Maile Norman MD Status: [facility] Study: Other Unlisted US Procedure Date of Exam: 08/21 Exam# [id number] Ordering Dr: Constanza Cordova MD ADDENDUM by Dr. Cristhian Wilhelm MD on 08/16/24 at 1500 This is an addendum to correct report header and technique: Real-Time targeted ultrasound imaging of the soft tissues of the left forearm were obtained. 09/07/24 0757 Date cc: Dr. Maile Norman MD; Dr. Constanza Cordova MD * Signed [id number] EXAM: US ABDOMEN LIMITED CLINICAL INDICATION: lump [...] Maile Norman MD; Dr. Constanza Cordova MD Adult Parole Officer: Signed [facility] MR Shoulder - right [facility] 06-15-2024 IMPRESSION: 1. Postoperative changes of biceps . 2. Rotator cuff tendinosis without evidence of a high-grade tear. 3. Mild to moderate subdeltoid subacromial bursitis. Adult Parole Officer: PSCB Transcribe Date/Time: Jun 15 2024 6:15P Dictated by : SHAWNEE BRICE MD This examination was interpreted and the report reviewed and electronically signed by: SHAWNEE BRICE MD on Jun 15 2024 6:24PM [facility] DIVISION OF RADIOLOGY * * *Final Report* * * DATE OF EXAM: Jun 15 2024 1:17PM [facility] 0240 - MRI SHOULDER [facility] RT / PROCEDURE REASON: multiple diagnoses * * * * Physician Interpretation * * * * [facility]IN[facility] H[facility]: TECHNIQUE: Routine non-contrast MRI of [...] No additional findings. DIVISION OF RADIOLOGY Provider, [facility] - 06/15/2024 * * *Final Report* * * DATE OF EXAM: Jun 15 2024 1:17PM [facility] 0240 - MRI SHOULDER WO IVCON RT [...] 3. Mild to moderate subdeltoid subacromial bursitis. Adult Parole Officer: DARSHAN Transcribe Date/Time: Jun 15 2024 6:15P Dictated by : SHAWNEE BRICE MD This examination was interpreted and the report reviewed and electronically signed by: SHAWNEE BRICE MD on Jun 15 2024 6:24PM EST [facility] Radiology Study observation (narrative) [facility] MR Shoulder - right WO contr astOrdered By: Ccf Provider on 06-15-2024 [facility] MRI SHOULDER WO IVCON RTon 1 08-16-2023 MRI SHOULDER WO IVCON RT Normal [facility] Plastic Surgery Visit Report on 06-06-2024 Plastic Surgery Visit Report [facility] Plastic Reconstructive Surgery [address], [address] [place] [id number] OFFICE VISIT Date of Service: 06/06/24 MR#: [id number] Acct: [id number] Name: PAT KNIGHT Rep #: [id number] : 1980 Provider: Dr. Constanza esposito MD Age/Sex: 44/F Location: [facility] Status: Signed Intake Vital Signs 03/18/24 13:22 [...] by: Daughter Is patient in pain?: Yes (/10) Allergies escitalopram (From Lexapro) Allergy (Verified 06/06/24 [...] bump beside the area. bump is painfule PFSH Medical History Right rotator cuff tear [...] asthma, emphysem (more content not included)... Normal [facility] 06-05-2024 [facility] 05-29-2024 [facility] Normal [facility] 05-25-2024 [facility] XR HAND 3V PA/LAT/OBL RTon 1 07-25-2023 XR HAND 3V PA/LAT/OBL RT Normal [facility] XR Hand - right PA and Later al and Obliqueon 05-25-2024 IMPRESSION: Negative ulnar variance. No acute radiographic abnormalities identified. Adult Parole Officer: DARSHAN Transcribe Date/Time: May 25 2024 12:08P Dictated by : OTTONIEL OSHEA MD This examination was interpreted and the report reviewed and electronically signed by: OTTONIEL OSHEA MD on May 25 2024 12:10PM [facility] DIVISION OF RADIOLOGY * * *Final [...] soft tissue swelling. DIVISION OF RADIOLOGY Provider, [facility] - 05/25/2024 * * *Final Report* * [...] ulnar variance. No acute radiographic abnormalities identified. Adult Parole Officer: PSCB Transcribe Date/Time: May 25 2024 12:08P Dictated by : OTTONIEL OSHEA MD This examination was interpreted and the report reviewed and electronically signed by: OTTONIEL OSHEA MD on May 25 2024 12:10PM EST [facility] Radiology Study observation (narrative) [facility] XR Hand - right PA and Later al and ObliqueOrdered By: Ccf Provider on 05-25-2024 [facility] CNOVon 05-23-2024 CNOV Normal [facility] CNOVon 05-15-2024 CNOV Normal [facility] CNPNon 05-15-2024 CNPN Normal [facility] CNOVon 05-11-2024 CNOV Normal [facility] HSV+VZV DNA MARY KAY+probe Ql (Un sp spec)on 05-11-2024 HSV 1 DNA MARY KAY+probe Ql (Unsp spec) Not detected Normal Not Detected [facility] Comment on above: Order Comment: Speci men Type: SWABOrdering Facility: [facility] Address: [address] [place] [address] Performed By: #### 3 3027-4 ####[facility] LABCLIA [id number] [place] [address] [place] HSV 2 DNA MARY KAY+probe Ql (Unsp spec) Not detected Normal Not Detected [facility] Comment on above: Order Comment: Speci men Type: SWABOrdering Facility: [facility] Address: [address] [place] [address] Performed By: #### 3 3027-4 ####[facility] LABCLIA [id number] [place] [address] [place] VZV DNA MARY KAY+probe Ql (Unsp spec) Not detected Normal Not Detected [facility] Comment on above: Order Comment: Speci men Type: SWABOrdering Facility: [facility] Address: [address] [place] [address] Performed By: #### 3 3027-4 ####[facility] LABCLIA [id number] [place] [address] [place] CNOVon 05-10-2024 CNOV Normal [facility] XR FOREARM 2V AP/LAT LTon XR FOREARM 2V AP/LAT LT Normal [facility] XR Radius and Ulna - left AP and Lateralon 05-10-2024 IMPRESSION: No acute osseous abnormality Adult Parole Officer: DARSHAN Transcribe Date/Time: May 10 2024 12:29P Dictated by : ZACHERY RO MD This examination was interpreted and the report reviewed and electronically signed by: ZACHERY RO MD on May 10 2024 12:30PM EST DIVISION OF RADIOLOGY * * *Final Report* [...] spaces are maintained. DIVISION OF RADIOLOGY Provider, [facility] - 05/10/2024 * * *Final Report* * [...] maintained. IMPRESSION IMPRESSION: No acute osseous abnormality Adult Parole Officer: PSCB Transcribe Date/Time: May 10 2024 12:29P Dictated by : ZACHERY RO MD This examination was interpreted and the report reviewed and electronically signed by: ZACHERY RO MD on May 10 2024 12:30PM EST [facility] Radiology Study observation (narrative) [facility] XR Radius and Ulna - left AP and LateralOrdered By: Ccf Provider on 05-10-[address] [facility] [address] ABDOMEN/PELVIS W/O CONTRA STon 04-29-2024 CT [...] 04/29/2024 9:43:43 PM Ordering Provider: JUAN MIGUEL Solo [facility] LABORATORYOrdered By: Carmen Moreira on 04-29-2024 Appearance [...] SS UAon 04-29-2024 Color (U) Yellow Normal [facility] Comment on above: Performed By: #### U A #### [place] [address] Glucose (U) [Mass/Vol] Negative Normal Negative [facility] Comment on above: Performed By: #### U A #### [place] [address] Ketones Ql (U) Negative Normal Negative [facility] Comment on above: Performed By: #### U A #### [place] [address] UA Appear Clear Normal Clear [facility] Comment on above: Performed By: #### U A #### [place] [address] UA Blood Negative Normal Negative [facility] Comment on above: Performed By: #### U A #### [place] [address] UA Leuk Est Negative Normal Negative [facility] Comment on above: Performed By: #### U A #### [place] [address] UA Nitrite Negative Normal Negative [facility] Comment on above: Performed By: #### U A #### [place] [address] UA pH 6.5 Normal 5.0 - 8.0 [facility] Comment on above: Performed By: #### U A #### [place] [address] UA Protein Negative Normal Negative [facility] Comment on above: Performed By: #### U A #### [address] [address] UA Spec Grav 1.015 Normal 1.015-1.025 [facility] Comment on above: Performed By: #### U A #### [place] [address] [place], [place] [address] UA Specimen Type Clean Catch Normal [facility] Comment on above: Performed By: #### U A #### [place] [address] [place], [place] [address] UA Urobilinogen 0.2 E.U./dL Normal 0.2-1.0 [facility] Comment on above: Performed By: #### U A #### [place] [address] Urobilinogen (U) [Mass/Vol] Negative Normal Negative [facility] Comment on above: Performed By: #### U A #### [place] [id number] CNOVon 04-25-2024 CNOV Normal [facility] CNPNon 04-17-2024 CNPN Normal [facility] CNOVon 04-13-2024 CNOV Normal [facility] CNOVon 03-28-2024 CNOV Normal [facility] CNPNon 03-23-2024 CNPN Normal [facility] Brain/Head without Contrasto n 03-18-2024 Brain/Head without Contrast [facility] Imaging Services [address] [place] [address] Brain/Head without Contrast MR#: [id number] Acct: [id number] Name: PAT KNIGHT Rep #: [id number] : 1980 F 44 From: Kofi Spring PCP: Dr. Maile Norman MD Status: REG ER Study: Brain/Head without Contrast Date of Exam: 02/26 08/20 Exam# [id number] Ordering Dr: Prasanth Keith DO [id number] EXAM: CT HEAD WITHOUT INTRAVENOUS CONTRAST CLINICAL [...] Signed: Kofi Quispe MD at 15:39 EDT Reading Location ID and State: [facility] / [place] , Service support , CC: Dr. Maile Norman MD; Dr. Prasanth Keith DO Adult Parole Officer: Signed Normal [facility] Elbow min 3 Viewson 03-18-20 Elbow min 3 Views [facility] Imaging Services [address] [place], [place] [id number] Elbow min 3 Views MR#: [id number] Acct: [id number] Name: PAT KNIGHT Rep #: [id number] : 1980 F 44 From: Kofi Spring PCP: Dr. Maile Norman MD Status: REG ER Study: Elbow min 3 Views Date of Exam: 03/18/24 Exam# [id number] Ordering Dr: Prasanth Keith DO [id number] EXAM: XR LEFT ELBOW COMPLETE, 3 OR [...] Signed: Kofi Quispe MD at 15:39 EDT Reading Location ID and State: [facility] / [place] , Service support , CC: Dr. Maile Norman MD; Dr. Prasanth Keith DO Adult Parole Officer: Signed Normal [facility] Emergency Department Summary on 03-18-2024 Emergency Department Summary [facility] Medical Records Department [address] [place] [address] Emergency Department Summary 03/18/24 MR#: [id number] Acct: [id number] Name: PAT KNIGHT Rep #: [id number] : 1980 44 From: Prasanth Keith DO [...] however denies any suicidal or homicidal ideations. [facility] Medical History Right rotator cuff tear Wears [...] the bi (more content not included)... Normal [facility] Forearm 2 Viewson 03-18-2024 Forearm 2 Views [facility] Imaging Services [address] [place], [place] [address] Forearm 2 Views MR#: [id number] Acct: [id number] Name: PAT KNIGHT Rep #: [id number] : 1980 F 44 From: Kofi Spring PCP: Dr. Maile Norman MD Status: REG ER Study: Forearm 2 Views Date of Exam: 03/18/24 Exam# [id number] Ordering Dr: Prasanth Keith DO [id number] INDICATION: lac EXAMINATION/TECHNIQUE : X-RAY - LEFT [...] Signed: Kofi Quispe MD at 15:40 EDT Reading Location ID and State: [facility] / [place] , Service support , CC: Dr. Maile Norman MD; Dr. Prasanth Keith DO Adult Parole Officer: Signed Normal [facility] Sinus/Facial Boneon 03-18-20 Sinus/Facial Bone [facility] Imaging Services [address] [place] [address] Sinus/Facial Bone MR#: [id number] Acct: [id number] Name: PAT KNIGHT Rep #: [id number] : 1980 F 44 From: Kofi Spring PCP: Dr. Maile Norman MD Status: REG ER Study: Sinus/Facial Bone Date of Exam: 03/18/24 Exam# [id number] Ordering Dr: Prasanth Keith DO [id number] EXAM: CT MAXILLOFACIAL WITHOUT INTRAVENOUS CONTRAST CLINICAL [...] 15:37 EDT Reading Location ID and State: [facility] / [place] , Service support , CC: Dr. Maile Norman MD; Dr. Prasanth Keith DO Adult Parole Officer: Signed Normal [facility] Spine Cervical without Contr ason 03-18-2024 Spine Cervical without Contras [facility] Imaging Services [address] [place], [place] [address] Spine Cervical without Contras MR#: [id number] Acct: [id number] Name: PAT KNIGHT Rep #: [id number] : 1980 F 44 From: Kofi Spring PCP: Dr. Maile Norman MD Status: REG ER Study: Spine Cervical without Contras Date of Exam: 0 03/18/24 Exam# [id number] Ordering Dr: Prasanth Keith DO [id number] STUDY: CT Spine Cervical W/O Contrast Injection [...] Signed: Kofi Quispe MD at 15:42 EDT Reading Location ID and State: [facility] / [place] , Service support , CC: Dr. Maile Norman MD; Dr. Prasanth Keith DO Adult Parole Officer: Signed Normal [facility] CNPNon 03-07-2024 CNPN Normal [facility] XR CHEST 2V FRONTAL/LATon XR CHEST 2V FRONTAL/LAT Normal [facility] XR Chest PA and Lateralon IMPRESSION: No acute radiographic abnormality. Adult Parole Officer: PSCB Transcribe Date/Time: Mar 07 2024 4:07P Dictated by : ALEX MUNIZ MD This examination was interpreted and the report reviewed and electronically signed by: ALEX MUNIZ MD on Mar 07 2024 4:07PM [facility] DIVISION OF RADIOLOGY * * *Final [...] Mild degenerative changes. DIVISION OF RADIOLOGY [facility], [facility] * * *Final Report* * [...] changes. IMPRESSION IMPRESSION: No acute radiographic abnormality. Adult Parole Officer: DARSHAN Transcribe Date/Time: Mar 07 2024 4:07P Dictated by : ALEX MUNIZ MD This examination was interpreted and the report reviewed and electronically signed by: ALEX MUNIZ MD on Mar 07 2024 4:07PM [facility] Radiology Study observation (narrative) [facility] XR Chest PA and LateralOrder ed By: Ccf Provider on 03-07-2024 [facility] CBC W Auto Differential pane l (Bld)on 02-28-2024 Basophils (Bld) [#/Vol] 0.11 10*3/uL High <0.11 [facility] Comment on above: Order Comment: Speci men Type: BLOOD SPECIMENOrdering Facility: [facility] Address: [address] [place] [address] Performed By: #### 5 7021-8 ####[facility] LABCLIA [id number] [place] [address] [place] Basophils/100 WBC (Bld) 1.2 % Normal [facility] Comment on above: Order Comment: Speci men Type: BLOOD SPECIMENOrdering Facility: [facility] Address: [address] [place] [address] Performed By: #### 5 7021-8 ####[facility] LABCLIA [id number] [place] [address] [place] Differential cell count method Nom (Bld) Auto Normal [facility] Comment on above: Order Comment: Speci men Type: BLOOD SPECIMENOrdering Facility: [facility] Address: [address] [place] [address] Performed By: #### 5 7021-8 ####[facility] LABCLIA [id number] [place] [address] [place] Eosinophils (Bld) [#/Vol] 0.24 10*3/uL Normal <0.46 [facility] Comment on above: Order Comment: Speci men Type: BLOOD SPECIMENOrdering Facility: [facility] Address: [address] [place] [address] Performed By: #### 5 7021-8 ####[facility] LABCLIA [id number] [place] [address] [place] Eosinophils/100 WBC (Bld) 2.7 % Normal [facility] Comment on above: Order Comment: Speci men Type: BLOOD SPECIMENOrdering Facility: [facility] Address: [address] [place] [address] Performed By: #### 5 7021-8 ####[facility] LABCLIA [id number] [place] [address] [place] Erythrocyte distribution width (RBC) [Ratio] 12.8 % Normal 11.5-15.0 [facility] Comment on above: Order Comment: Speci men Type: BLOOD SPECIMENOrdering Facility: [facility] Address: [address] [place] [address] Performed By: #### 5 7021-8 ####[facility] LABIA [id number] [place] [address] [place] Hematocrit (Bld) [Volume fraction] 42.9 % Normal 36.0-46.0 [facility] Comment on above: Order Comment: Speci men Type: BLOOD SPECIMENOrdering Facility: [facility] Address: [address] [place] [address] Performed By: #### 5 7021-8 ####[facility] LABIA [id number] [place] [address] [place] Hemoglobin (Bld) [Mass/Vol] 14.2 g/dL Normal 11.5-15.5 [facility] Comment on above: Order Comment: Speci men Type: BLOOD SPECIMENOrdering Facility: [facility] Address: [address] [place] [address] Performed By: #### 5 7021-8 ####[facility] LABCLIA [id number] [place] [address] [place] Immature granulocytes (Bld) [#/Vol] 10*3/uL Normal <0.10 [facility] Comment on above: Order Comment: Speci men Type: BLOOD SPECIMENOrdering Facility: [facility] Address: [address] [place] [address] Performed By: #### 5 7021-8 ####[facility] LABCLIA [id number] [place] [address] [place] Immature granulocytes/100 WBC (Bld) 0.2 % Normal [facility] Comment on above: Order Comment: Speci men Type: BLOOD SPECIMENOrdering Facility: [facility] Address: [address] [place] [address] Performed By: #### 5 7021-8 ####[facility] LABCLIA [id number] [place] [address] [place] Lymphocytes (Bld) [#/Vol] 2.52 10*3/uL Normal 1.00-4.00 [facility] Comment on above: Order Comment: Speci men Type: BLOOD SPECIMENOrdering Facility: [facility] Address: [address] [place] [address] Performed By: #### 5 7021-8 ####[facility] LABCLIA [id number] [place] [address] [place] Lymphocytes/100 WBC (Bld) 28.5 % Normal [facility] Comment on above: Order Comment: Speci men Type: BLOOD SPECIMENOrdering Facility: [facility] Address: [address] [place] [address] Performed By: #### 5 7021-8 ####[facility] LABCLIA [id number] [place] [address] [place] MCH (RBC) [Entitic mass] 32.4 pg Normal 26.0-34.0 [facility] Comment on above: Order Comment: Speci men Type: BLOOD SPECIMENOrdering Facility: [facility] Address: [address] [place] [address] Performed By: #### 5 7021-8 ####[facility] LABCLIA [id number] [place] [address] [place] MCHC (RBC) [Mass/Vol] 33.1 g/dL Normal 30.5-36.0 [facility] Comment on above: Order Comment: Speci men Type: BLOOD SPECIMENOrdering Facility: [facility] Address: [address] [place] [address] Performed By: #### 5 7021-8 ####[facility] LABIA [id number] [place] [address] [place] MCV (RBC) [Entitic vol] 97.9 fL Normal 80.0-100.0 [facility] Comment on above: Order Comment: Speci men Type: BLOOD SPECIMENOrdering Facility: [facility] Address: [address] [place] [address] Performed By: #### 5 7021-8 ####[facility] LABIA [id number] [place] [address] [place] Monocytes (Bld) [#/Vol] 0.57 10*3/uL Normal <0.87 [facility] Comment on above: Order Comment: Speci men Type: BLOOD SPECIMENOrdering Facility: [facility] Address: [address] [place] [address] Performed By: #### 5 7021-8 ####[facility] LABIA [id number] [place] [address] [place] Monocytes/100 WBC (Bld) 6.4 % Normal [facility] Comment on above: Order Comment: Speci men Type: BLOOD SPECIMENOrdering Facility: [facility] Address: [address] [place] [address] Performed By: #### 5 7021-8 ####[facility] LABCLIA [id number] [place] [address] [place] Neutrophils (Bld) [#/Vol] 5.39 10*3/uL Normal 1.45-7.50 [facility] Comment on above: Order Comment: Speci men Type: BLOOD SPECIMENOrdering Facility: [facility] Address: [address] [place] [address] Performed By: #### 5 7021-8 ####[facility] LABCLIA [id number] [place] [address] [place] Neutrophils/100 WBC (Bld) 61.0 % Normal [facility] Comment on above: Order Comment: Speci men Type: BLOOD SPECIMENOrdering Facility: [facility] Address: [address] [place] [address] Performed By: #### 5 7021-8 ####[facility] LABCLIA [id number] [place] [address] [place] Nucleated RBC (Bld) [#/Vol] 10*3/uL Normal <0.01 [facility] Comment on above: Order Comment: Speci men Type: BLOOD SPECIMENOrdering Facility: [facility] Address: [address] [place] [address] Performed By: #### 5 7021-8 ####[facility] LABIA [id number] [place] [address] [place] Nucleated RBC/100 WBC (Bld) [Ratio] 0.0 /100 WBC Normal [facility] Comment on above: Order Comment: Speci men Type: BLOOD SPECIMENOrdering Facility: [facility] Address: [address] [place] [address] Performed By: #### 5 7021-8 ####[facility] LABIA [id number] [place] [address] [place] Platelet mean volume (Bld) [Entitic vol] 10.0 fL Normal 9.0-12.7 [facility] Comment on above: Order Comment: Speci men Type: BLOOD SPECIMENOrdering Facility: [facility] Address: [address] [place] [address] Performed By: #### 5 7021-8 ####[facility] LABIA [id number] [place] [address] [place] Platelets (Bld) [#/Vol] 347 10*3/uL Normal 150-400 [facility] Comment on above: Order Comment: Speci men Type: BLOOD SPECIMENOrdering Facility: [facility] Address: [address] [place] [address] Performed By: #### 5 7021-8 ####[facility] LABCLIA [id number] [place] [address] [place] RBC (Bld) [#/Vol] 4.38 10*6/uL Normal 3.90-5.20 [facility] Comment on above: Order Comment: Speci men Type: BLOOD SPECIMENOrdering Facility: [facility] Address: [address] [place] [address] Performed By: #### 5 7021-8 ####[facility] LABCLIA [id number] [place] [address] [place] WBC (Bld) [#/Vol] 8.85 10*3/uL Normal 3.70-11.00 [facility] Comment on above: Order Comment: Speci men Type: BLOOD SPECIMENOrdering Facility: [facility] Address: [address] [place] [address] Performed By: #### 5 7021-8 ####[facility] LABCLIA [id number] [place] [address] [place] CNOVon 02-28-2024 CNOV Normal [facility] CNPNon 02-28-2024 CNPN Normal [facility] Comprehensive metabolic 2000 panelon 02-28-2024 Albumin [Mass/Vol] 3.9 g/dL Normal 3.9-4.9 [facility] Comment on above: Order Comment: Speci men Type: BLOOD SPECIMENOrdering Facility: [facility] Address: [address] [place] [address] Performed By: #### 2 4323-8 ####[facility] LABCLIA [id number] [place] [address] [place] ALP [Catalytic activity/Vol] 61 U/L Normal 34-123 [facility] Comment on above: Order Comment: Speci men Type: BLOOD SPECIMENOrdering Facility: [facility] Address: [address] [place] [address] Performed By: #### 2 4323-8 ####[facility] LABCLIA [id number] [place] [address] [place] ALT [Catalytic activity/Vol] 13 U/L Normal 7-38 [facility] Comment on above: Order Comment: Speci men Type: BLOOD SPECIMENOrdering Facility: [facility] Address: [address] [place] [address] Performed By: #### 2 4323-8 ####[facility] LABCLIA [id number] [place] [address] [place] Anion gap [Moles/Vol] 11 mmol/L Normal 8-15 [facility] Comment on above: Order Comment: Speci men Type: BLOOD SPECIMENOrdering Facility: [facility] Address: [address] [place] [address] Performed By: #### 2 4323-8 ####[facility] LABCLIA [id number] [place] [address] [place] AST [Catalytic activity/Vol] 15 U/L Normal 13-35 [facility] Comment on above: Order Comment: Speci men Type: BLOOD SPECIMENOrdering Facility: [facility] Address: [address] [place] [address] Performed By: #### 2 4323-8 ####[facility] LABCLIA [id number] [place] [address] [place] Bilirubin [Mass/Vol] 0.2 mg/dL Normal 0.2-1.3 [facility] Comment on above: Order Comment: Speci men Type: BLOOD SPECIMENOrdering Facility: [facility] Address: [address] [place] [address] Performed By: #### 2 4323-8 ####[facility] LABCLIA [id number] [place] [address] [place] Calcium [Mass/Vol] 9.2 mg/dL Normal 8.5-10.2 [facility] Comment on above: Order Comment: Speci men Type: BLOOD SPECIMENOrdering Facility: [facility] Address: [address] [place] [address] Performed By: #### 2 4323-8 ####[facility] LABCLIA [id number] [place] [address] [place] Chloride [Moles/Vol] 105 mmol/L Normal 98-107 [facility] Comment on above: Order Comment: Speci men Type: BLOOD SPECIMENOrdering Facility: [facility] Address: [address] [place] [address] Performed By: #### 2 4323-8 ####[facility] LABCLIA [id number] [place] [address] [place] CO2 [Moles/Vol] 26 mmol/L Normal 22-30 [facility] Comment on above: Order Comment: Speci men Type: BLOOD SPECIMENOrdering Facility: [facility] Address: [address] [place] [address] Performed By: #### 2 4323-8 ####[facility] LABCLIA [id number] [place] [address] [place] Creatinine [Mass/Vol] 0.86 mg/dL Normal 0.58-0.96 [facility] Comment on above: Order Comment: Speci men Type: BLOOD SPECIMENOrdering Facility: [facility] Address: [address] [place] [address] Performed By: #### 2 4323-8 ####[facility] LABCLIA [id number] [place] [address] [place] Creatinine and Glomerular filtration rate.predicted panel (S/P/Bld) 87 mL/min/1.73m??? Normal >=60 [facility] Comment on above: Order Comment: Luana [place] Type: BLOOD SPECIMENOrdering Facility: [facility] Address: [address] [place] [address] Result Comment: Cristal mated Glomerular Filtration Rate [...] actual GFR. Performed By: #### 2 4323-8 ####[facility] LABIA [id number] [place] [address] [place] Glucose [Mass/Vol] 100 mg/dL High 74-99 [facility] Comment on above: Order Comment: Luana [place] Type: BLOOD SPECIMENOrdering Facility: [facility] Address: [address] [place] [address] Result Comment: The [place] Diabetes [employer] (ADA) provides guidance for cutoff [...] Standards of Medical Care in Diabetes 2016, [place] [employer]. Diabetes Care. 2016.39(Suppl 1). Performed By: #### 2 4323-8 ####[facility] LABIA [id number] [place] [address] [place] Potassium [Moles/Vol] 3.8 mmol/L Normal 3.7-5.1 [facility] Comment on above: Order Comment: Luana [place]aven[place] Type: BLOOD SPECIMENOrdering Facility: [facility] Address: [address] [place] [address] Performed By: #### 2 4323-8 ####[facility] LABCLIA [id number] [place] [address] [place] Protein [Mass/Vol] 6.3 g/dL Normal 6.3-8.0 [facility] Comment on above: Order Comment: Speci men Type: BLOOD SPECIMENOrdering Facility: [facility] Address: [address] [place] [address] Performed By: #### 2 4323-8 ####[facility] LABCLIA [id number] [place] [address] [place] Sodium [Moles/Vol] 142 mmol/L Normal 136-144 [facility] Comment on above: Order Comment: Speci men Type: BLOOD SPECIMENOrdering Facility: [facility] Address: [address] [place] [address] Performed By: #### 2 4323-8 ####[facility] LABCLIA [id number] [place] [address] [place] Urea nitrogen [Mass/Vol] 6 mg/dL Low 7-21 [facility] Comment on above: Order Comment: Speci men Type: BLOOD SPECIMENOrdering Facility: [facility] Address: [address] [place] [address] Performed By: #### 2 4323-8 ####[facility] LABCLIA [id number] [place] [address] [place] HCV Ab Ser Qlon 02-28-2024 HCV Ab Ql (S) Positive Abnormal Negative [facility] Comment on above: Order Comment: Speci men Type: BLOOD SPECIMENOrdering Facility: [facility] Address: [address] [place] [address] Performed By: #### 1 1011-4, 40315-7 ####[facility] LABCLIA [id number] [place] [address] [place] HCV RNA SerPl MARY KAY+probe-aCnc on 02-28-2024 HCV RNA MARY KAY+probe Qn Not detected Normal HCV RNA not detected by PCR. [facility] Comment on above: Order Comment: Speci men Type: BLOOD SPECIMENOrdering Facility: [facility] Address: [address] [place] [address] Performed By: #### 1 1011-4, 61677-0 ####[facility] LABIA [id number] [place] [address] [place] HIV 1+2 Ab IA Qlon 4 HIV 1 and 2 Ab IA.rapid Nom (S/P/Bld) Normal [facility] Comment on above: Order Comment: Speci men Type: BLOOD SPECIMENOrdering Facility: [facility] Address: [address] [place] [address] Result Comment: Test not indicated. Performed By: #### 3 1201-7 ####[facility] [id number] [place] [address] [place] HIV 1+2 Ab+HIV1 p24 Ag IA Ql Non-Reactive Normal Nonreactive [facility] Comment on above: Order Comment: Speci men Type: BLOOD SPECIMENOrdering Facility: [facility] Address: [address] [place] [address] Performed By: #### 3 1201-7 ####[facility] [id number] [place] [address] [place] HIV immunoassay testing algorithm interpretation (S/P/Bld) [Interp] Normal [facility] Comment on above: Order Comment: Speci men Type: BLOOD SPECIMENOrdering Facility: [facility] Address: [address] [place] [address] Result Comment: No e vidence of HIV-1 or HIV-2 infection. Should recent infection be suspected, repeat testing may be considered 2-3 weeks after this draw.[place] Rev. Code 3701.243(E): This information has been [...] or diagnoses. Performed By: #### 3 1201-7 ####[facility] LABCLIA [id number] [facility] [id number] [place], [place] [id number] [place] [facility] Abdomen/Pelvis W IV Cont ONL Yon 02-27-2024 Abdomen/Pelvis W IV Cont ONLY [facility] [address] [place] [address] [id number] Abdomen/Pelvis W IV Cont ONLY MR#: [id number] Acct: [id number] Name: PAT KNIGHT Rep #: [id number] : 1980 F 44 From: Katrin Nettles MD PCP: Dr. Maile Norman MD Status: REG ER Study: Abdomen/Pelvis W IV Cont ONLY Date of Exam: Exam# [id number] Ordering Dr: Cesar Meneses DO [id number] STUDY: CT ABDOMEN AND PELVIS WITH CONTRAST [...] Signed: Katrin Nettles MD at 3:58 EDT Reading Location ID and State: [facility] / [place] , Service support , CC: Dr. Maile Norman MD; Cesar Meneses DO Adult Parole Officer: Signed Normal [facility] Basic Metabolic Profile (BMP )on 02-27-2024 BUN/CRE 9.2 RATIO Low 10-20 [facility] Comment on above: Performed By: #### L 500.2500, L100.0100 ####[facility] [address] [place], [address] CA,Total 8.9 mg/dL Normal 8.5-10.1 [facility] Comment on above: Performed By: #### L 500.2500, L100.0100 ####[facility] [address] [place], [address] Chloride [Moles/Vol] 105 mmol/L Normal 98-107 [facility] Comment on above: Performed By: #### L 500.2500, L100.0100 ####[facility] [address] [place], [address] CO2 [Moles/Vol] 28.0 mmol/L Normal 21.0-32.0 [facility] Comment on above: Performed By: #### L 500.2500, L100.0100 ####[facility] [address] [place], [address] Creatinine [Mass/Vol] 0.76 mg/dL Normal 0.55-1.02 [facility] Comment on above: Result Comment: The validity of the calculated GFR GFRAA in patients over 70 years has not been determined. Clinical correlation is essential. Performed By: #### L 500.2500, L100.0100 ####[facility] [address] [place], [address] ECRCL 86.77 ml/min Normal [facility] Comment on above: Performed By: #### L 500.2500, L100.0100 ####[facility] [address] [place], [address] EST GFR - AA 107 mL/min Normal >60 [facility] Comment on above: Result Comment: Afri can Vietnamese GFR Calc Performed By: #### L 500.2500, L100.0100 ####[facility] [address] [place], [address] GAP 6 Normal 5-15 [facility] Comment on above: Performed By: #### L 500.2500, L100.0100 ####[facility] [address] [place], [address] GFR/1.73 sq M.predicted among non-blacks MDRD (S/P/Bld) [Vol rate/Area] 88 mL/min/{1.73_m2} Normal >60 [facility] Comment on above: Result Comment: Non- GFR Calc Performed By: #### L 500.2500, L100.0100 ####[facility] [address] [place], [address] Glucose [Mass/Vol] 96 mg/dL Normal 74-106 [facility] Comment on above: Performed By: #### L 500.2500, L100.0100 ####[facility] [address] [place], [address] Potassium [Moles/Vol] 3.2 mmol/L Low 3.5-5.1 [facility] Comment on above: Performed By: #### L 500.2500, L100.0100 ####[facility] [address] [place], [address] Sodium [Moles/Vol] 139 mmol/L Normal 136-145 [facility] Comment on above: Performed By: #### L 500.2500, L100.0100 ####[facility] [address] [place], [address] Urea nitrogen [Mass/Vol] 7 mg/dL Normal 7-18 [facility] Comment on above: Performed By: #### L 500.2500, L100.0100 ####[facility] [address] [place], [address] CBC W/Diff, Automatedon 09-0 2-4 Absolute Lymph 4.87 X10 3/uL High 0.83-4.51 [facility] Comment on above: Performed By: #### L 500.2500, L100.0100 ####[facility] [address] [place], [address] Absolute Neut 7.7 X10 3/uL Normal 2.0-7.7 [facility] Comment on above: Performed By: #### L 500.2500, L100.0100 ####[facility] [address] [place], [address] Nucleated RBC (Bld) [#/Vol] 0 10*3/uL Normal 0-5 [facility] Comment on above: Performed By: #### L 500.2500, L100.0100 ####[facility] [address] [place], [address] Basophils/100 WBC (Bld) 0.9 % Normal 0-1 [facility] Comment on above: Performed By: #### L 500.2500, L100.0100 ####[facility] [address] [place], [address] Eosinophils/100 WBC (Bld) 1.4 % Normal 0-5 [facility] Comment on above: Performed By: #### L 500.2500, L100.0100 ####[facility] [address] [place], [address] Erythrocyte distribution width (RBC) [Ratio] 12.7 % Normal 11.6-14.6 [facility] Comment on above: Performed By: #### L 500.2500, L100.0100 ####[facility] [address] [place], [address] Hematocrit (Bld) [Volume fraction] 39.2 % Normal 37-47 [facility] Comment on above: Performed By: #### L 500.2500, L100.0100 ####[facility] [address] [place], [address] Hemoglobin (Bld) [Mass/Vol] 13.5 g/dL Normal 12.0-15.0 [facility] Comment on above: Performed By: #### L 500.2500, L100.0100 ####[facility] [address] [place], [address] IG% 0.300 Normal 0.0-0.9 [facility] Comment on above: Result Comment: IG% - Immature Granulocytes (promyelocytes, myelocytes and metamyelocytes) > 1% indicates that a LEFT SHIFT is Present. Performed By: #### L 500.2500, L100.0100 ####[facility] [address] [place], [address] Lymphocytes/100 WBC (Bld) 34.8 % Normal 19-41 [facility] Comment on above: Performed By: #### L 500.2500, L100.0100 ####[facility] [address] [place], [address] MCH (RBC) [Entitic mass] 32.8 pg High 27.0-32.0 [facility] Comment on above: Performed By: #### L 500.2500, L100.0100 ####[facility] [address] [place], [address] MCHC (RBC) [Mass/Vol] 34.4 g/dL Normal 32-36 [facility] Comment on above: Performed By: #### L 500.2500, L100.0100 ####[facility] [address] [place], [address] MCV (RBC) [Entitic vol] 95.4 fL Normal 81-99 [facility] Comment on above: Performed By: #### L 500.2500, L100.0100 ####[facility] [address] [place], [address] Monocytes/100 WBC (Bld) 7.8 % Normal 0-10 [facility] Comment on above: Performed By: #### L 500.2500, L100.0100 ####[facility] [facility] [address] [place], [address] Neutrophils/100 WBC (Bld) 54.8 % Normal 47-70 [facility] Comment on above: Performed By: #### L 500.2500, L100.0100 ####[facility] [address] [place], [address] Platelet mean volume (Bld) [Entitic vol] 10.4 fL Normal 6.2-12.0 [facility] Comment on above: Performed By: #### L 500.2500, L100.0100 ####[facility] [address] [place], [address] Platelets (Bld) [#/Vol] 317 10*3/uL Normal 150-450 [facility] Comment on above: Performed By: #### L 500.2500, L100.0100 ####[facility] [address] [place], [address] RBC (Bld) [#/Vol] 4.11 10*6/uL Low 4.2-5.4 [facility] Comment on above: Performed By: #### L 500.2500, L100.0100 ####[facility] [address] [place], [address] RDW SD 43.9 fl Normal 35.1-43.9 [facility] Comment on above: Performed By: #### L 500.2500, L100.0100 ####[facility] [address] [place], [address] WBC (Bld) [#/Vol] 14.0 10*3/uL High 4.4-11.0 [facility] Comment on above: Performed By: #### L 500.2500, L100.0100 ####[facility] [address] [place], [address] Emergency Department Summary on 02-27-2024 Emergency Department Summary [facility] Medical Records Department [address] [place] [address] Emergency Department Summary 02/27/24 MR#: [id number] Acct: [id number] Name: PAT KNIGHT Rep #: [id number] : 1980 44 From: Iain Reina DO [...] complaints including shortness of breath headache and "not feeling good". When asked what brought her into the [...] or guar (more content not included)... Normal [facility] Emergency Department Summary [facility] Medical Records Department [address] [place] [address] Emergency Department Summary 02/27/24 MR#: [id number] Acct: [id number] Name: PAT KNIGHT Rep #: [id number] : 1980 44 From: Cesar Meneses DO [...] and therefore she comes in for evaluation [facility] Medical History Right rotator cuff tear Wears [...] Resp n (more content not included)... Normal [facility] ,Urineon 02-27-2024 Beta HCG ( test) Ql (U) Negative Normal [facility] Comment on above: Order Comment: CANDIDO CARMONA TO SPECIFY Result Comment: Very dilute urine specimens, as indicated by a low specific gravity, may not contain outside industrial sales representative levels of hCG. If is still suspected, a first morning urine specimen should be collected 48 hours later and tested. Performed By: #### L 100.0100, L501.2450, L500.4050, L700.6800 #### [facility] Laboratory [address] [place], [address] Urinalysis, Completeon 02-26 BACTERIA 0 SEEN Normal None Seen [facility] Comment on above: Order Comment: CANDIDO CTOR TO SPECIFY Performed By: #### L 100.0100, L501.2450, L500.4050, L700.6800 #### [facility] Laboratory [address] [place], [address] EPI,SQUAMOUS 0 SEEN Normal 5-10 [facility] Comment on above: Order Comment: CANDIDO CTOR TO SPECIFY Performed By: #### L 100.0100, L501.2450, L500.4050, L700.6800 #### [facility] Laboratory [address] [place], [address] Mucus Ql (Urine sed) 0 SEEN Normal [facility] Comment on above: Order Comment: COLLE CTOR TO SPECIFY Performed By: #### L 100.0100, L501.2450, L500.4050, L700.6800 #### [facility] Laboratory [address] [place], [address] RBC 0 SEEN Normal 0-5 [facility] Comment on above: Order Comment: COLLE CTOR TO SPECIFY Performed By: #### L 100.0100, L501.2450, L500.4050, L700.6800 #### [facility] Laboratory [address] [place], [address] WBC 0 SEEN Normal 0-5 [facility] Comment on above: Order Comment: COLLE CTOR TO SPECIFY Performed By: #### L 100.0100, L501.2450, L500.4050, L700.6800 #### [facility] Laboratory [address] [place], [address] CNOVon 02-16-2024 CNOV Normal [facility] CNPNon 02-13-2024 CNPN Normal [facility] CNOVon 02-07-2024 CNOV Office Visit (AGHWW1 ) PAT KNIGHT ([id number]) 1980 F Date Time Provider Department 02/07/24 3:15 [facility] During your visit today, we recorded the [...] patient voiced understanding of these instructions. Louis Valnecia MD Shoulder AND Elbow Surgeon Department of Orthopaedic Surgery [facility] Merline Carson LPN 02/17/2024 10:26 AM Signed [...] chronicity [M25.511] Order(s):MRI SHOULDER WO IVCON RIGHT [[id number]] Order #: [id number] FUTURE Large Joint Arthro/Inj: R shoulder joint [SLW430] Order #: [id number] [] bupivacaine (PF) 0.25 % (2.5 mg/mL) [...] daily. With (more content not included)... Normal [facility] Large Joint Arthro/Inj: R sh oulder jointon [...] the patient voiced understanding of these instructions. [facility] CNOVon 01-25-2024 CNOV Normal [facility] CNPNon 01-23-2024 CNPN Normal [facility] CNPNon 01-16-2024 CNPN Normal [facility] CNOVon 01-11-2024 CNOV Normal [facility] CNPTOUTREACHon 01-11-2024 CNPTOUTREACH Normal [facility] CNPNon 01-09-2024 CNPN Normal [facility] Abdomen/Pelvis W IV Cont ONL Yon 01-06-2024 Abdomen/Pelvis W IV Cont ONLY [facility] Imaging Services [address] [place], [place] [address] Abdomen/Pelvis W IV Cont ONLY MR#: [id number] Acct: [id number] Name: PAT KNIGHT Rep #: [id number] : 1980 F 43 From: Kofi Ventura MD PCP: Dr. Maile Norman MD Status: REG ER Study: Abdomen/Pelvis W IV Cont ONLY Date of Exam: Exam# [id number] Ordering Dr: Arturo Craig DO [id number] EXAM: CT ABDOMEN AND PELVIS WITH INTRAVENOUS [...] Arturo Craig DO; Dr. Maile Norman MD Adult Parole Officer: Signed Normal [facility] CBC W/Diff, Automatedon 07- Absolute Lymph 3.85 X10 3/uL Normal 0.83-4.51 [facility] Comment on above: Performed By: #### L 700.6800, L100.0100, L501.2450, L500.4050 ####[facility] [address] [place], [address] Absolute Neut 8.8 X10 3/uL High 2.0-7.7 [facility] Comment on above: Performed By: #### L 700.6800, L100.0100, L501.2450, L500.4050 ####[facility] [address] [place], [address] Basophils/100 WBC (Bld) 0.5 % Normal 0-1 [facility] Comment on above: Performed By: #### L 700.6800, L100.0100, L501.2450, L500.4050 ####[facility] [address] [place], [address] Eosinophils/100 WBC (Bld) 1.2 % Normal 0-5 [facility] Comment on above: Performed By: #### L 700.6800, L100.0100, L501.2450, L500.4050 ####[facility] [address] [place], [address] Erythrocyte distribution width (RBC) [Ratio] 12.3 % Normal 11.6-14.6 [facility] Comment on above: Performed By: #### L 700.6800, L100.0100, L501.2450, L500.4050 ####[facility] [address] [place], [address] Hematocrit (Bld) [Volume fraction] 41.8 % Normal 37-47 [facility] Comment on above: Performed By: #### L 700.6800, L100.0100, L501.2450, L500.4050 ####[facility] [address] [place], [address] Hemoglobin (Bld) [Mass/Vol] 14.3 g/dL Normal 12.0-15.0 [facility] Comment on above: Performed By: #### L 700.6800, L100.0100, L501.2450, L500.4050 ####[facility] [address] [place], [address] IG% 0.300 Normal 0.0-0.9 [facility] Comment on above: Result Comment: IG% - Immature Granulocytes (promyelocytes, myelocytes and metamyelocytes) > 1% indicates that a LEFT SHIFT is Present. Performed By: #### L 700.6800, L100.0100, L501.2450, L500.4050 ####[facility] [address] [place], [address] Lymphocytes/100 WBC (Bld) 28.0 % Normal 19-41 [facility] Comment on above: Performed By: #### L 700.6800, L100.0100, L501.2450, L500.4050 ####[facility] [address] [place], [address] MCH (RBC) [Entitic mass] 31.7 pg Normal 27.0-32.0 [facility] Comment on above: Performed By: #### L 700.6800, L100.0100, L501.2450, L500.4050 ####[facility] [address] [place], [address] MCHC (RBC) [Mass/Vol] 34.2 g/dL Normal 32-36 [facility] Comment on above: Performed By: #### L 700.6800, L100.0100, L501.2450, L500.4050 ####[facility] [address] [place], [address] MCV (RBC) [Entitic vol] 92.7 fL Normal 81-99 [facility] Comment on above: Performed By: #### L 700.6800, L100.0100, L501.2450, L500.4050 ####[facility] [address] [place], [address] Monocytes/100 WBC (Bld) 6.0 % Normal 0-10 [facility] Comment on above: Performed By: #### L 700.6800, L100.0100, L501.2450, L500.4050 ####[facility] [address] [place], [address] Neutrophils/100 WBC (Bld) 64.0 % Normal 47-70 [facility] Comment on above: Performed By: #### L 700.6800, L100.0100, L501.2450, L500.4050 ####[facility] [address] [place], [address] Nucleated RBC (Bld) [#/Vol] 0 10*3/uL Normal 0-5 [facility] Comment on above: Performed By: #### L 700.6800, L100.0100, L501.2450, L500.4050 ####[facility] [address] [place], [address] Platelet mean volume (Bld) [Entitic vol] 9.5 fL Normal 6.2-12.0 [facility] Comment on above: Performed By: #### L 700.6800, L100.0100, L501.2450, L500.4050 ####[facility] [address] [place], [address] Platelets (Bld) [#/Vol] 333 10*3/uL Normal 150-450 [facility] Comment on above: Performed By: #### L 700.6800, L100.0100, L501.2450, L500.4050 ####[facility] [address] [place], [address] RBC (Bld) [#/Vol] 4.51 10*6/uL Normal 4.2-5.4 [facility] Comment on above: Performed By: #### L 700.6800, L100.0100, L501.2450, L500.4050 ####[facility] [address] [place], [address] RDW SD 42.0 fl Normal 35.1-43.9 [facility] Comment on above: Performed By: #### L 700.6800, L100.0100, L501.2450, L500.4050 ####[facility] [address] [place], [address] WBC (Bld) [#/Vol] 13.8 10*3/uL High 4.4-11.0 [facility] Comment on above: Performed By: #### L 700.6800, L100.0100, L501.2450, L500.4050 ####[facility] [address] [place], [address] Comprehensive Metabolic Prof ilon 01-06-2024 Albumin [Mass/Vol] 3.5 g/dL Normal 3.2-5.0 [facility] Comment on above: Performed By: #### L 700.6800, L100.0100, L501.2450, L500.4050 ####[facility] [address] [place], [address] Albumin/Globulin [Mass ratio] 1.1 {ratio} Normal 0.9-2.4 [facility] Comment on above: Performed By: #### L 700.6800, L100.0100, L501.2450, L500.4050 ####[facility] [address] [place], [address] ALK P 63 U/L Normal 45-117 [facility] Comment on above: Performed By: #### L 700.6800, L100.0100, L501.2450, L500.4050 ####[facility] [address] [place], [address] ALT [Catalytic activity/Vol] 12 U/L Low 13-56 [facility] Comment on above: Performed By: #### L 700.6800, L100.0100, L501.2450, L500.4050 ####[facility] [address] [place], [address] AST [Catalytic activity/Vol] 9 U/L Low 15-37 [facility] Comment on above: Performed By: #### L 700.6800, L100.0100, L501.2450, L500.4050 ####[facility] [address] [place], [address] Bilirubin [Mass/Vol] 0.40 mg/dL Normal 0.20-1.00 [facility] Comment on above: Result Comment: For patients on eltrombopag therapy, use of Dimension [place] TBIL is not recommended. Performed By: #### L 700.6800, L100.0100, L501.2450, L500.4050 ####[facility] [address] [place], [address] BUN/CRE 8.4 RATIO Low 10-20 [facility] Comment on above: Performed By: #### L 700.6800, L100.0100, L501.2450, L500.4050 ####[facility] [address] [place], [address] CA,Total 8.9 mg/dL Normal 8.5-10.1 [facility] Comment on above: Performed By: #### L 700.6800, L100.0100, L501.2450, L500.4050 ####[facility] [address] [place], [address] Chloride [Moles/Vol] 107 mmol/L Normal 98-107 [facility] Comment on above: Performed By: #### L 700.6800, L100.0100, L501.2450, L500.4050 ####[facility] [address] [place], [address] CO2 [Moles/Vol] 26.0 mmol/L Normal 21.0-32.0 [facility] Comment on above: Performed By: #### L 700.6800, L100.0100, L501.2450, L500.4050 ####[facility] [address] [place], [address] Creatinine [Mass/Vol] 0.95 mg/dL Normal 0.55-1.02 [facility] Comment on above: Result Comment: The validity of the calculated GFR GFRAA in patients over 70 years has not been determined. Clinical correlation is essential. Performed By: #### L 700.6800, L100.0100, L501.2450, L500.4050 ####[facility] [address] [place], [address] ECRCL 68.47 ml/min Normal [facility] Comment on above: Performed By: #### L 700.6800, L100.0100, L501.2450, L500.4050 ####[facility] [address] [place], [address] EST GFR - AA 83 mL/min Normal >60 [facility] Comment on above: Result Comment: Afri can Vietnamese GFR Calc Performed By: #### L 700.6800, L100.0100, L501.2450, L500.4050 ####[facility] [address] [place], [address] GAP 5 Normal 5-15 [facility] Comment on above: Performed By: #### L 700.6800, L100.0100, L501.2450, L500.4050 ####[facility] [address] [place], [address] GFR/1.73 sq M.predicted among non-blacks MDRD (S/P/Bld) [Vol rate/Area] 69 mL/min/{1.73_m2} Normal >60 [facility] Comment on above: Result Comment: Non- GFR Calc Performed By: #### L 700.6800, L100.0100, L501.2450, L500.4050 ####[facility] [address] [place], [address] Globulin (S) [Mass/Vol] 3.1 g/dL Normal 2.2-4.2 [facility] Comment on above: Performed By: #### L 700.6800, L100.0100, L501.2450, L500.4050 ####[facility] [address] [place], [address] Glucose [Mass/Vol] 80 mg/dL Normal 74-106 [facility] Comment on above: Performed By: #### L 700.6800, L100.0100, L501.2450, L500.4050 ####[facility] [address] [place], [address] Potassium [Moles/Vol] 3.6 mmol/L Normal 3.5-5.1 [facility] Comment on above: Performed By: #### L 700.6800, L100.0100, L501.2450, L500.4050 ####[facility] [address] [place], [address] Sodium [Moles/Vol] 138 mmol/L Normal 136-145 [facility] Comment on above: Performed By: #### L 700.6800, L100.0100, L501.2450, L500.4050 ####[facility] [address] [place], [address] T PROT 6.6 g/dL Normal 6.4-8.2 [facility] Comment on above: Performed By: #### L 700.6800, L100.0100, L501.2450, L500.4050 ####[facility] [address] [place], [address] Urea nitrogen [Mass/Vol] 8 mg/dL Normal 7-18 [facility] Comment on above: Performed By: #### L 700.6800, L100.0100, L501.2450, L500.4050 ####[facility] [address] [place], [address] Emergency Department Summary on 01-06-2024 Emergency Department Summary [facility] Medical Records Department [address] [place] [address] Emergency Department Summary 01/06/24 MR#: [id number] Acct: [id number] Name: PAT KNIGHT Rep #: [id number] : 1980 43 From: Arturo Craig DO [...] Patient states that [facility] but does not think she swallowed any water. She has not had any exotic food or travel. No recent antibiotic use. [facility] Medical History Right rotator cuff tear Wears [...] pain. Different (more content not included)... Normal [facility] Lipaseon 01-06-2024 Lipase [Catalytic activity/Vol] 37 U/L Normal 13-75 [facility] Comment on above: Result Comment: Padma gee note: LIPASE revised reference range effective 22. New Lipase methodology. Expected to produce lower values than the previous assay method. NEW Reference Range: 13 - 75 U/L Performed By: #### L 700.6800, L100.0100, L501.2450, L500.4050 ####[facility] [address] [place], [place], [id number] ,Serum,hCG Quali.on 01-06-2024 HCG, SERUM QUAL Normal [facility] Comment on above: Result Comment: Canc elled via OM: Ordered/Entered in error Performed By: #### L 700.6800, L100.0100, L501.2450, L500.4050 ####[facility] [address] [place], [address] INTERNAL QC OK? Normal [facility] Comment on above: Result Comment: Canc elled via OM: Ordered/Entered in error Performed By: #### L 700.6800, L100.0100, L501.2450, L500.4050 ####[facility] [address] [place], [address] RECORD KIT LOT# Normal [facility] Comment on above: Result Comment: Canc elled via OM: Ordered/Entered in error Performed By: #### L 700.6800, L100.0100, L501.2450, L500.4050 ####[facility] [address] [place], [address] Urinalysis, Completeon 01-05 BACTERIA 1+ /hpf Normal None Seen [facility] Comment on above: Order Comment: CANDIDO CRESPOOR TO SPECIFY Performed By: #### L 400.0001 ####[facility] [address] [place], [address] EPI,SQUAMOUS 5-10 SEEN Normal 5-10 [facility] Comment on above: Order Comment: CANDIDO CRESPOOR TO SPECIFY Performed By: #### L 400.0001 ####[facility] [address] [place], [address] WBC 0-5 SEEN Normal 0-5 [facility] Comment on above: Order Comment: CANDIDO CRESPOOR TO SPECIFY Performed By: #### L 400.0001 ####[facility] [address] [place], [address] Mucus Ql (Urine sed) 0 SEEN Normal [facility] Comment on above: Order Comment: CANDIDO CTOR TO SPECIFY Performed By: #### L 400.0001 ####[facility] [address] [place], [address] RBC 0 SEEN Normal 0-5 [facility] Comment on above: Order Comment: COLLE CTOR TO SPECIFY Performed By: #### L 400.0001 ####[facility] [address] [place], [address] CNPNon 01-02-2024 CNPN Normal [facility] Emergency Department Summary on 01-01-2024 Emergency Department Summary [facility] Medical Records Department [address] [place] [address] Emergency Department Summary 01/01/24 MR#: [id number] Acct: [id number] Name: PAT KNIGHT Rep #: [id number] : 1980 43 From: Pablo Jarquin MD PCP: Dr. Maile Norman MD Status:REG ER Location: ED HPI History of Present Illness HPI Narrative: 43-year-old female ftxla-ocpy-eipqkrjz with right rotator cuff surgery 3 months [...] can flex and extend her elbow. Normal manufacturing director strength. Normal radial pulse. Normal touch sensation. [...] for cachect (more content not included)... Normal [facility] CNPNon 12-27-2023 CNPN Normal [facility] CNOVon 12-20-2023 CNOV Normal [facility] CNPNon 12-07-2023 CNPN Normal [facility] CNOVon 10-11-2023 CNOV Office Visit (AGHWW1 ) PAT KNIGHT ([id number]) 1980 F Date Time Provider Department 10/11/23 [...] improving. Resp 20 Ht 165.1 cm (5' 5") Wt 55.8 kg (123 lb) LMP 05/07/2009 [...] AND Elbow Surgeon Department of Orthopaedic Surgery [facility] Medical Decision Making: Medical Decision Making Level: [...] Letter T (more content not included)... Normal [facility] LABORATORYOrdered By: SYSTEM SYSTEM on 10-10-2023 Lipase [Catalytic activity/Vol] 36 U/L Normal 16 - 77 U/L AO ADM SS LIPon 10-10-2023 Lipase Level 36 U/L Normal 16-77 [facility] ([place]) Comment on above: Performed By: #### L IP #### [address] [address] .Auto Diffon 09-26-2023 Basophil, Absolute 0.2 10 3/mcL Normal 0.0-0.2 [facility] ([place]) Comment on above: Performed By: #### A [place], CBC, CHANCE #### [address] [address] Basophils/100 WBC (Bld) 1.4 % Normal 0.0-2.5 [facility] ([place]) Comment on above: Performed By: #### A [place], CBC, W #### [address] [address] Eosinophil, Absolute 0.0 10 3/mcL Normal 0.0-0.4 [facility] 1928[facility] ([place]) Comment on above: Performed By: #### A [place], CBC, W #### [address] [address] Eosinophils/100 WBC (Bld) 0.2 % Normal 0.0-7.0 [facility] ([place]) Comment on above: Performed By: #### A [place] CBC, MDW #### [address] [address] Lymphocyte, Absolute 2.6 10 3/mcL Normal 0.8-3.9 [facility] ([place] Comment on above: Performed By: #### A [place] CBC, MDW #### [address] [address] Lymphocytes/100 WBC (Bld) 20.9 % Normal 10.0-50.0 [facility] ([place]) Comment on above: Performed By: #### A [place] CBC, MDW #### [address] [address] Monocyte, Absolute 0.7 10 3/mcL Normal 0.2-1.0 [facility] ([place]) Comment on above: Performed By: #### A IWONA SANFORD CBC, MDW #### [address] [address] Monocytes/100 WBC (Bld) 5.3 % Normal 1.7-13.0 [facility] ([place]) Comment on above: Performed By: #### A IWONA SANFORD CBC, MDW #### [address] [address] Neutrophils/100 WBC (Bld) 72.2 % Normal 37.0-80.0 [facility] ([place]) Comment on above: Performed By: #### A IWONA SANFORD CBC, MDW #### [address] [address] .MDWon 09-26-2023 Monocyte Distribution Width 19.23 Normal 0.00-20.00 [facility] ([place]) Comment on above: Result Comment: For ED adult patients suspected of sepsis, MDW<=20.0 does not rule out sepsis or risk of sepsis Performed By: #### A IWONA SANFORD CBC, MDW #### [address] [address] .NEUABSon 09-26-2023 Neutrophil, Absolute 9.0 10 3/mcL High 2.9-6.2 [facility], 1928–1983 ([place]) Comment on above: Performed By: #### A IWONA SANFORD CBC, MDW #### [address] [address] CBCon 09-26-2023 Erythrocyte distribution width (RBC) [Ratio] 14.3 % Normal 11.5-14.5 [facility] ([place]) Comment on above: Performed By: #### A IWONA SANFORD CBC, MDW #### [place] [address] Hematocrit (Bld) [Volume fraction] 43.0 % Normal 37.0-47.0 [facility] ([place] Comment on above: Performed By: #### A IWONA SANFORD CBC, MDW #### [place] [address] Hgb 15.1 G/dL Normal 12.0-16.0 [facility] ([place] Comment on above: Performed By: #### A IWONA SANFORD CBC, MDW #### [place] [address] MCH (RBC) [Entitic mass] 32.6 pg High 27.0-31.2 [facility] ([place] Comment on above: Performed By: #### A IWONA SANFORD CBC, MDW #### [place] [address] MCHC 35.2 G/dL Normal 33.0-37.0 [facility] ([place] Comment on above: Performed By: #### A IWONA SANFORD CBC, MDW #### [place] [address] MCV (RBC) [Entitic vol] 92.6 fL Normal 80.0-94.0 [facility] ([place] Comment on above: Performed By: #### A IWONA SANFORD CBC, MDW #### [address] [address] Platelet 365 10 3/mcL Normal 130-400 [facility] ([place] Comment on above: Performed By: #### A IWONA SANFORD CBC, MDW #### [address] [address] Platelet mean volume (Bld) [Entitic vol] 7.6 fL Normal 7.4-10.4 [facility] ([place]) Comment on above: Performed By: #### A IWONA SANFORD CBC, MDW #### [address] [address] RBC 4.64 10 6/mcL Normal 4.20-5.40 [facility] ([place] Comment on above: Performed By: #### A IWONA SANFORD CBC, MDW #### [address] [address] WBC 12.4 10 3/mcL High 4.6-10.8 [facility] ([place] Comment on above: Performed By: #### A IWONA SANFORD CBC, MDW #### [address] [address] LABORATORYOrdered By: SYSTEM SYSTEM on 09-26-2023 Basophil, [...] Date: 09/26/2023 9:41:45 PM Ordering Provider: TU DE ANDA [facility] ([place]) CNOV 09-13-2023 [facility] Office Visit (AGHWW1 ) PAT KNIGHT ([id number]) 1980 F Date Time Provider Department 09/13/23 1:45 PM LOUIS VALENCIA AGHWW1 During your visit today, we recorded the following information about you: Respiration Weight Height 18/minute 57.2 kg 1.651 m Louis Valencia MD 09/13/2023 1:40 PM Signed PAIN EVALUATION 09/13/2023 1330 Pain Level: 7 Pain Location: Shoulder-Right Description: Aching;Burning;Stabbi ng Frequency: Continuous Pat Adam presents today for: First post-surgery follow up CHANGES SINCE LAST VISIT: Post-surgical recovery uneventful. Pain appropriately controlled with medication. Wearing sling most of the time. No falls or other injuries. Resp 18 Ht 165.1 cm (5' 5") Wt 57.2 kg (126 lb) LMP 05/07/2009 [...] AND Elbow Surgeon Department of Orthopaedic Surgery [facility] Medical Decision Making: Medical Decision Making Level: [...] passing out Date Reviewed: 09/13/2023 Reviewed by: Merline Carson LPN - Fully [...] Encounter Status:Closed by LOUIS VALENCIA on 09/13/23 [facility] ANES POSTPROC EVALon 024 ANES POSTPROC EVAL HNO ID: [id number] Author: MADAI JORGE MD Service: Anesthesiology Author Type: Physician Type: Anesthesia Postprocedure Evaluation Filed: 08/29/2023 16:02 Note Text: POST ANESTHESIA EVALUATION NOTE : 1980 Procedure Summary Date: 08/29/23 Room / Location: [facility] Anesthesia Start: 1303 Anesthesia Stop: 1416 [...] August 29, 2023 TIME: 4:02 PM CSN: [id number] [facility] ANES PRE-OPon 08-29-2023 ANES PRE-OP HNO ID: [id number] Author: OTF MCCLENDON MD Service: Anesthesiology Author Type: Physician Type: Anesthesia Preprocedure Evaluation Filed: 08/29/2023 12:02 Note Text: ANESTHESIOLOGY DAY OF SURGERY NOTE : 1980 Procedure Information Date/Time: 08/29/23 1205 Procedure: ARTHROSCOPY SHOULDER BICEPS TENODESIS (Right: Shoulder) - REG - INTERSCALENE BLOCK Location: [facility] / [facility] Surgeons: Louis Valencia MD Estimated body mass index is 20.3 kg/m? as calculated from the following: Height as of this encounter: 165.1 cm (5' 5"). Weight as of this encounter: 55.3 kg [...] and consent discussed: yes. Patient / Responsible Constitution Party agrees to proceed: yes Patient / Surrogate [...] August 29, 2023 TIME: 11:31 AM CSN: [id number] Normal [facility] HCG Preg Ur Qlon 08-29-2023 HCG ( test) Ql (U) Negative Normal Negative [facility] Comment on above: Order Comment: Speci men Type: URINE SPECIMENOrdering Facility: [facility] Address: [address] [place] [address] Result Comment: This test is intended to aid in the early detection of . Very dilute urine samples, as indicated by a low specific gravity, may not contain outside industrial sales representative levels of hCG. This test detects [...] for . Performed By: #### 2 106-3 ####[facility] LABCLIA [id number] [place] [address] [place] HISTORY PHYSICALon HISTORY PHYSICAL HNO ID: [id number] Author: LOUIS VALENCIA MD Service: Orthopaedic Surgery [...] DATE: August 29, 2023 TIME: 11:52 AM [facility] OPERATIVE NOon 08-29-2023 OPERATIVE NO HNO ID: [id number] Author: LOUIS VALENCIA MD Service: Orthopaedic Surgery Author Type: Physician Type: Operative Report Filed: 09/07/2023 11:31 Note Text: OPERATIVE/PROCEDURE REPORT LOG ID: [id number] SURGERY/PROCEDURE DATE: 08/29/2023 INCISION/PROCEDURE START TIME: 1:29 PM INCISION CLOSE/PROCEDURE END TIME: 2:03 PM SURGEON(S)/PROCEDURAL IST(S) AND ADJUNCT PROFESSOR(S): Surgeon(s) and Role: * Louis Valencia MD - Primary Physician Glass Finisher: Laura Tobar PA-C SURGERY/PROCEDURE(S): Right shoulder arthroscopic rotator cuff repair of supraspinatus (1 cm) and subscapularis (5 mm), open biceps tenodesis ANESTHESIA: General SURGERY/PROCEDURE DETAILS: Pat Knigth is a 43 year old woman who [...] repair. I grasped the tendon using a ScZenMateion suture passer and passed 2 limbs of suture from inferior to superior, medial to the tendon edge. Single row repair was completed using 1 anchor. Solid fixation was confirmed under direct visualization and by use of a probe. There was no (more content not included)... Normal [facility] ([id number]) 1980 F Date Time Provider Department 08/26/23 LOUIS VALENCIA [facility] During your visit today, we recorded the following information about you: Doyle [place] Daniel Alis 08/26/2023 4:13 PM Signed I just left [...] Date Reviewed: 08/18/2023 Reviewed by: Radha Neri APRN.PUTTY REMOVER - Fully Assessed Reason for Visit: Preparations [...] failure (HCC) [I50.9] 08/18/2023 Encounter Status:Closed by DOYLE AQUEDUCT AND RESERVOIR KEEPER ALIS ESPINOSA on 08/26/23 [facility] HISTORY PHYSICALon HISTORY PHYSICAL HNO ID: [id number] Author: RADHA NERI APRN.PUTTY REMOVER Service: ? Author Type: Nurse Practitioner Type: [...] Initiated: No labs ordered per surgeon in [facility] I spent a total of 40 minutes on the date of the service which included preparing to see the patient, [id number] patient care, completing clinical documentation, obtaining and/or [...] shoulder Surgery scheduled 08/29/2023 H/O chronic hepatitis Janet in 07/2018 Unsure if finished. 08/24/2018-HCV RNA [...] and URI (more content not included)... Normal [facility] STREP A MOLECULAR (POC)on Procedural Control Valid [facility] Strep A (POCT) Negative Negative [facility] XR Chest PA and Lateralon IMPRESSION: No acute radiographic abnormality. Adult Parole Officer: DARSHAN Transcribe Date/Time: Aug 11 2023 8:47A Dictated by : LIZBETH GONZALEZ DO This examination was interpreted and the report reviewed and electronically signed by: LIZBETH GONZALEZ DO on Aug 11 2023 8:50AM [facility] DIVISION OF RADIOLOGY * * *Final [...] soft tissues: Unremarkable. DIVISION OF RADIOLOGY Provider, Grace Garcia - 08/11/2023 * * *Final Report* * [...] Unremarkable. IMPRESSION IMPRESSION: No acute radiographic abnormality. Adult Parole Officer: PSCB Transcribe Date/Time: Aug 11 2023 8:47A Dictated by : LIZBETH GONZALEZ DO This examination was interpreted and the report reviewed and electronically signed by: LIZBETH GONZALEZ DO on Aug 11 2023 8:50AM EST [facility] Radiology Study observation (narrative) [facility] XR Chest PA and LateralOrder ed By: Ccf Provider on 08-11-2023 [facility] CNOVon 08-09-2023 CNOV Office Visit (AGHWW1 ) PAT KNIGHT ([id number]) 1980 F Date Time Provider Department 08/09/23 1:00 PM LOUIS VALENCIA AGHWW1 During your visit [...] negative Drop arm test: negative Biceps/joss Signs Bulloch's test: positive Clicking/popping: positive Speed's test: positive [...] AND Elbow Surgeon Department of Orthopaedic Surgery [facility] (more content not included)... Normal [facility] INFLUENZA A&B MOLECULAR (POC )on 08-01-2023 Flu A (POCT) Negative Negative [facility] Flu B (POCT) Negative Negative [facility] Procedural Control Valid [facility] CNOVon 05-12-2023 CNOV Office Visit (SPAGWO ) ADAMPAT ([id number]) 1980 F Date Time Provider Department 05/12/23 9:00 AM CHARLES ELLIOTT During your visit today, we recorded the following information about you: Pulse Respiration 68/minute 16/minute Charles Elliott APRN.CNP 05/12/2023 2:29 PM Signed [facility] Today's Date: 05/12/2023 Last Visit: N/A Name: [...] and validated on 05/12/2023 by Charles Elliott APRN.PUTTY REMOVER All prescriptions have been APPROPRIATELY filled. No suspicious activity was identified. Recent Drug screens: AG SPINE COMBINATION 05/12/2023 Questionnaire GREENLIGHT Completed Date 05/12/2023 Questionnaire Opiod Risk Tool Completed Date 05/12/2023 Comments 4 Greenlight Questionnaire GREENLIGHT Completed Date 05/12/2023 Opioid Risk Tool Opi (more content not included)... Normal [facility] CNPShelly 05-12-2023 CHRISTINA Telephone (SPAGWO) PAT KNIGHT ([id number]) 1980 F Date Time Provider Department 05/12/23 CHARLES ELLIOTT During your visit today, we recorded the following information about you: Kimberly Crowe 05/12/2023 10:14 AM Signed The referral to Orthopaedics for Chronic right shoulder pain, Labral tear of shoulder, degenerative, right has been submitted via the [facility] Internal Referral Request form on the [facility] Appointment Portal. Confirmation # [id number] Kimberly Crowe Allergies As of Date: 05/12/2023 [...] Date Reviewed: 05/12/2023 Reviewed by: Charles Elliott APRN.PUTTY REMOVER - Fully Assessed Reason for Visit: Referral Information [[id number]] Prescriptions as of 05/12/2023 - oxyCODONE-acetaminoph en [...] Status:Closed by KIMBERLY CROWE on 05/12/23 Normal [facility] UA DIP, URINE (POC)on 2022 BILIRUBIN UA (POCT) Negative Negative [facility] CLARITY UA (POCT) Clear [facility] COLOR UA (POCT) Yellow [facility] GLUCOSE UA (POCT) Negative Negative mg/dL [facility] Hemoglobin Ql (U) Negative Negative [facility] KETONE UA (POCT) Negative Negative mg/dL [facility] LEUKOCYTES UA (POCT) Negative Negative [facility] NITRITE UA (POCT) Negative Negative [facility] PH UA (POCT) 6.0 4.5 - 8.0 [facility] Protein Ql (U) 30 mg/dL Abnormal Negative mg/dL [facility] SPECIFIC GRAVITY UA (POCT) <=1.005 Abnormal 1.005 - 1.030 [facility] UROBILINOGEN UA (POCT) 0.2 E.U./dL Normal E.U./dL [facility] UA DIP, URINE (POC)on 2022 BILIRUBIN UA (POCT) Negative Negative [facility] CLARITY UA (POCT) Clear [facility] COLOR UA (POCT) Yellow [facility] GLUCOSE UA (POCT) Negative Negative mg/dL [facility] Hemoglobin Ql (U) Trace-intact Abnormal Negative [facility] KETONE UA (POCT) Negative Negative mg/dL [facility] LEUKOCYTES UA (POCT) Large Abnormal Negative [facility] NITRITE UA (POCT) Negative Negative [facility] PH UA (POCT) 6.5 4.5 - 8.0 [facility] Protein Ql (U) Negative Negative mg/dL [facility] SPECIFIC GRAVITY UA (POCT) 1.025 1.005 - 1.030 [facility] UROBILINOGEN UA (POCT) 0.2 E.U./dL Normal E.U./dL [facility] XR Chest PA and Lateralon IMPRESSION: No acute radiographic abnormality. Adult Parole Officer: DARSHAN Transcribe Date/Time: Mar 30 2023 8:48A Dictated by : OTTONIEL OSHEA MD This examination was interpreted and the report reviewed and electronically signed by: OTTONIEL OSHEA MD on Mar 30 2023 8:49AM EST DIVISION OF RADIOLOGY * * *Final Report* [...] soft tissues: Unremarkable. DIVISION OF RADIOLOGY Provider, [facility] - 03/30/2023 * * *Final Report* * [...] Unremarkable. IMPRESSION IMPRESSION: No acute radiographic abnormality. Adult Parole Officer: DARSHAN Transcribe Date/Time: Mar 30 2023 8:48A Dictated by : OTTONIEL OSHEA MD This examination was interpreted and the report reviewed and electronically signed by: OTTONIEL OSHEA MD on Mar 30 2023 8:49AM EST [facility] Radiology Study observation (narrative) [facility] XR Chest PA and LateralOrder ed By: Ccf Provider on 03-30-2023 [facility] Afshin 03-23-2023 LUIS DANIELN Telephone (AGSPINE3) PAT KNIGHT ([id number]) 1980 F Date Time Provider Department 03/23/23 CHARLES ELLIOTT AGSPINE3 During your visit today, we recorded the following information about you: Dai Gutierrez 03/23/2023 3:31 PM Signed Patients appointment [...] Date Reviewed: 02/08/2023 Reviewed by: Sam Khan APRN.PUTTY REMOVER - Fully Assessed Reason for Visit: Appointment [...] Status:Closed by DAI GUTIERREZ on 03/23/23 Normal [facility] XR SHOULDER MINIMUM 2 VIEWS RIGHTon 03-15-2023 [...] Date: 03/15/2023 10:58:13 AM Ordering Provider: LAVONNE Solo [facility] ([place]) MRI SHOULDER WO/W EDWIN Jose 03-11-2023 [facility] XR Sacrum and Coccyx 3 Views on 12-03-2022 IMPRESSION: NO ACUTE OSSEOUS ABNORMALITY Adult Parole Officer: DARSHAN Transcribe Date/Time: Dec 03 2022 5:09P Dictated by : TYESHA MARX MD This examination was interpreted and the report reviewed and electronically signed by: TYEHSA MARX MD on Dec 03 2022 5:09PM [facility] DIVISION OF RADIOLOGY * * *Final [...] significant abnormality. --- DIVISION OF RADIOLOGY [facility] * * *Final Report* * [...] --- IMPRESSION IMPRESSION: NO ACUTE OSSEOUS ABNORMALITY Adult Parole Officer: [facility] Transcribe Date/Time: Dec 03 2022 5:09P Dictated by : TYESHA MARX MD This examination was interpreted and the report reviewed and electronically signed by: TYESHA MARX MD on Dec 03 2022 5:09PM EST [facility] XR Sacrum and Coccyx 3 Views Ordered By: Ccf Provider on 12-03-2022 [facility] XR Sacrum and Coccyx 3 Views on 12-01-2022 Radiology Study observation (narrative) [facility] STREP A MOLECULAR (POC)on Procedural Control Valid [facility] Strep A (POCT) Negative Negative [facility] XR DIGIT GENERAL 3V FRONTAL/ LAT/OBL RIGHTon 03-16-2022 [facility] XR Finger - right AP and Lat eral and obliqueon 03-16-2022 IMPRESSION: Soft tissue swelling. There is no radiopaque foreign body. Adult Parole Officer: [facility] Transcribe Date/Time: Mar 16 2022 12:22P Dictated by : NATY GRAFF MD This examination was interpreted and the report reviewed and electronically signed by: NATY GRAFF MD on Mar 16 2022 12:25PM [facility] DIVISION OF RADIOLOGY * * *Final [...] relevant examinations available for comparison within the [facility] Imaging Archives. RESULT: AP, oblique and lateral radiographs of the right fourth finger demonstrate focal soft tissue prominence/swelling along the antiradial the lower margin of the distal phalanx. There is no radiopaque foreign body. No underlying fracture. DIVISION OF RADIOLOGY Provider, Grace Garcia - 03/16/2022 * * *Final Report* * [...] relevant examinations available for comparison within the [facility] Imaging Archives. RESULT: AP, oblique and lateral radiographs of the right fourth finger demonstrate focal soft tissue prominence/swelling along the antiradial the lower margin of the distal phalanx. There is no radiopaque foreign body. No underlying fracture. IMPRESSION IMPRESSION: Soft tissue swelling. There is no radiopaque foreign body. Adult Parole Officer: PSCB Transcribe Date/Time: Mar 16 2022 12:22P Dictated by : NATY GRAFF MD This examination was interpreted and the report reviewed and electronically signed by: NATY GRAFF MD on Mar 16 2022 12:25PM EST [facility] Radiology Study observation (narrative) [facility] XR Finger - right AP and Lat eral and obliqueOrdered By: Ccf Provider on 03-16-2022 [facility] Basic Metabolic Panelon -2 Anion gap [Moles/Vol] 0 mmol/L Low 3-13 [facility] Comment on above: Performed By: #### H EMDF, BMP3, QWAL2 #### [facility] [address] [place] [address] Calcium [Mass/Vol] 9.4 mg/dL Normal 8.4-10.4 [facility] Comment on above: Performed By: #### H EMDF, BMP3, QWAL2 #### [facility] [address] [place] [address] CO2 [Moles/Vol] 30 mmol/L Normal 22-30 [facility] Comment on above: Performed By: #### H OSBALDO GARCIA, QWAL2 #### [facility] [address] [place] [address] Creatinine [Mass/Vol] 0.70 mg/dL Normal 0.52-1.25 [facility] Comment on above: Performed By: #### H MIRA GARCIA3, QWAL2 #### [facility] [address] [place] [address] eGFR OTHER > 90.0 Normal >60 [facility] Comment on above: Result Comment: KDIG O [...] tubular creatinine secretion. Performed By: #### H OSBALDO GARCIA, QWAL2 #### [facility] [address] [place] [address] GFR/1.73 sq M.predicted among blacks MDRD (S/P/Bld) [Vol rate/Area] mL/min/{1.73_m2} Normal >60 [facility] Comment on above: Performed By: #### H MIRA GARCIA3, QWAL2 #### [facility] [address] [place] [address] Glucose [Mass/Vol] 86 mg/dL Normal 70-100 [facility] Comment on above: Performed By: #### H OSBALDO GARCIA, QWAL2 #### [facility] [address] [place] [address] Urea nitrogen [Mass/Vol] 2 mg/dL Low 9-20 [facility] Comment on above: Performed By: #### H EMDF, BMP3, QWAL2 #### [facility] [address] [place] [address] Chloride [Moles/Vol] 109 mmol/L High 98-[address] [facility] Comment on above: Performed By: #### H EMDF, BMP3, QWAL2 #### [facility] [address] [place] [address] Potassium [Moles/Vol] 3.2 mmol/L Low 3.5-5.1 [facility] Comment on above: Performed By: #### H EMDF, BMP3, QWAL2 #### [facility] [address] [place] [address] Sodium [Moles/Vol] 139 mmol/L Normal 135-145 [facility] Comment on above: Performed By: #### H EMDF, BMP3, QWAL2 #### [facility] [address] [place] [address] Anion gap [Moles/Vol] 0 mmol/L Low 3 - 13 mmol/L [facility] Calcium [Mass/Vol] 9.4 mg/dL 8.4 - 10. 4 mg/dL [facility] Chloride [Moles/Vol] 109 mmol/L High 98 - 107 mmol/L [facility] CO2 [Moles/Vol] 30 mmol/L 22 - 30 mmol/L [facility] Creatinine [Mass/Vol] 0.7 mg/dL 0.52 - 1.25 mg/dL [facility] EGFR IF NonAfrican Vietnamese >90.0 >60 mL/min [facility] Comment on above: KDIGO guidelines pro vide [...] - 10.7 10*3/uL [facility] Test Performed by [facility], [address] [place] [address]. [address] [facility] CT HEAD WO CONTRASTon 2021 Patient Name: PAT KNIGHT Computed Tomography ACCESSION EXAM DATE/TIME PROCEDURE ORDERING PROVIDER [id number] 07/18/2021 18:[address] Head or Brain w/o MD MARIAELENA, ALISSON Sanz Contrast CPT code 99036 Reason For Exam (CT Head or Brain [...] MALAY Transcribed Date and Time: 07/18/2021 6:59 [facility] RAD Thai Samson MD - 07/18/2021 Patient Name: PAT KNIGHT Computed Tomography ACCESSION EXAM DATE/TIME PROCEDURE ORDERING PROVIDER [id number] 07/18/2021 18:[address] Head or Brain w/o MD FERRELL DOUGALAS R. Contrast CPT code 68503 Reason For Exam (CT Head or Brain [...] MALAY Transcribed Date and Time: 07/18/2021 6:59 [facility] Work Phone: CT HEAD WO CONTRASTOrdered B y: Thai Samson on 07-18-2021 [facility] Work Phone: CT Head or Brain w/o Contras ton 07-18-2021 CT Head or Brain w/o Contrast Patient Name: PAT KNIGHT Computed Tomography ACCESSION EXAM DATE/TIME PROCEDURE ORDERING PROVIDER [id number] 07/18/2021 18:[address] Head or Brain w/o MD FERRELL DOUGALAS R. Contrast CPT code 45370 Reason For Exam (CT Head or Brain [...] MALAY Transcribed Date and Time: 07/18/2021 6:[address] [facility] [address] MAXILLOFACIAL W CONTRASTo n 07-18-2021 Patient Name: PAT KNIGHT Computed Tomography ACCESSION EXAM DATE/TIME PROCEDURE ORDERING PROVIDER [id number] 07/18/2021 19:[address] Maxillofacial w/ MD MARIAELENA, ALISSON Rodríguez. Contrast CPT code 75656 Q9967 Reason For Exam (CT Maxillofacial w/ [...] MALAY Transcribed Date and Time: 07/18/2021 7:14 [facility] Thai Samson MD - 07/18/2021 Patient Name: PAT KNIGHT Computed Tomography ACCESSION EXAM DATE/TIME PROCEDURE ORDERING PROVIDER [id number] 07/18/2021 19:[address] Maxillofacial w/ MD MARIAELENA, PRIETOS R. Contrast CPT code 75767 Q9967 Reason For Exam (CT Maxillofacial w/ [...] Maxillofacial w/ Contrast [facility]: [id number] Comput[facility] Tomography ACCESSION EXAM DATE/TIME PROCEDURE ORDERING PROVIDER [id number] 07/18/2021 19:[address] Maxillofacial w/ MD MARIAELENA, PRIETOS R. Contrast CPT code 10147 Q9967 Reason For Exam (CT Maxillofacial w/ [...] Transcribed Date and Time: 07/18/2021 7:14 Normal [facility] HCG Qualitative, Serumon hCG Qual Negative [facility] Comment on above: Reference Range: NEG ATIVE Effective 09/07/2019, the reference interval for the qualitative test has been updated. This test detects hCG at concentrations of 10 mIU/L or greater in serum. Hemogram w/ Autodiffon 07-18 Abs Baso Cnt 0.1 10*3/uL Normal 0.0-0.2 [facility] Comment on above: Performed By: #### H EMDF, BMP3, QWAL2 #### [facility] [address] [place] [address] Abs Neutrophile Cnt 5.0 10*3/uL Normal 1.8-7.[address] [facility] Comment on above: Performed By: #### H EMDF, BMP3, QWAL2 #### [facility] [address] [place] [address] Basophils/100 WBC (Bld) 1.3 % Normal 0.0-2.0 [facility] Comment on above: Performed By: #### H EMDF, BMP3, QWAL2 #### [facility] [facility] [address] [place] [address] Eosinophils (Bld) [#/Vol] 0.1 10*3/uL Normal 0.0-0.5 [facility] Comment on above: Performed By: #### H EMDF, BMP3, QWAL2 #### [facility] [address] [place] [address] Eosinophils/100 WBC (Bld) 1.2 % Normal 1.0-6.0 [facility] Comment on above: Performed By: #### H EMDF, BMP3, QWAL2 #### [facility] [address] [place] [address] Erythrocyte distribution width (RBC) [Ratio] 13.2 % Normal 11.5-14.5 [facility] Comment on above: Performed By: #### H EMDF, BMP3, QWAL2 #### [facility] [address] [place] [address] Granulocytes/100 WBC (Bld) 54.7 % Normal 40.0-80.0 [facility] Comment on above: Performed By: #### H EMDF, BMP3, QWAL2 #### [facility] [address] [place] [address] Hematocrit (Bld) [Volume fraction] 37.5 % Normal 35.0-47.0 [facility] Comment on above: Performed By: #### H EMDF, BMP3, QWAL2 #### [facility] [address] [place] [address] Hemoglobin (Bld) [Mass/Vol] 13.1 g/dL Normal 11.7-16.0 [facility] Comment on above: Performed By: #### H EMDF, BMP3, QWAL2 #### [facility] [address] [place] [address] Lymphocytes (Bld) [#/Vol] 3.4 10*3/uL Normal 1.0-4.3 [facility] Comment on above: Performed By: #### H EMDF, BMP3, QWAL2 #### [facility] [address] [place] [address] Lymphocytes/100 WBC (Bld) 36.9 % Normal 20.0-40.0 [facility] Comment on above: Performed By: #### H EMDF, BMP3, QWAL2 #### [facility] [address] [place] [address] MCH (RBC) [Entitic mass] 31.8 pg Normal 26.0-34.0 [facility] Comment on above: Performed By: #### H EMDF, BMP3, QWAL2 #### [facility] [address] [place] [address] MCHC 35.0 % Normal 32.0-36.0 [facility] Comment on above: Performed By: #### H EMDF, BMP3, QWAL2 #### [facility] [address] [place] [address] MCV (RBC) [Entitic vol] 90.7 fL Normal 79.0-98.0 [facility] Comment on above: Performed By: #### H EMDF, BMP3, QWAL2 #### [facility] [address] [place] [address] Monocytes (Bld) [#/Vol] 0.5 10*3/uL Normal 0.0-0.8 [facility] Comment on above: Performed By: #### H EMDF, BMP3, QWAL2 #### [facility] [address] [place] [address] Monocytes/100 WBC (Bld) 5.9 % Normal 2.0-10.0 [facility] Comment on above: Performed By: #### H EMDF, BMP3, QWAL2 #### [facility] [address] [place] [address] Platelet mean volume (Bld) [Entitic vol] 7.6 fL Normal 7.4-10.4 [facility] Comment on above: Performed By: #### H EMDF, BMP3, QWAL2 #### [facility] [address] [place] [address] Platelets (Bld) [#/Vol] 365 10*3/uL Normal 140-440 [facility] Comment on above: Performed By: #### H EMDF, BMP3, QWAL2 #### [facility] [address] [place] [address] RBC (Bld) [#/Vol] 4.13 10*6/uL Normal 3.80-5.20 [facility] Comment on above: Performed By: #### H EMDF, BMP3, QWAL2 #### [facility] [address] [place] [address] WBC (Bld) [#/Vol] 9.2 10*3/uL Normal 3.6-10.7 [facility] Comment on above: Performed By: #### H EMDF, BMP3, QWAL2 #### [facility] [address] [place] [address] No Panel Informationon 07-18 Test Performed by [facility] [employer] [facility], [address] [place], [place] [address] [facility] Radiology Study observation (narrative) [facility] Work Phone: hCG Qual Pregon 07-18-2021 hCG Qual Preg Negative Normal [facility] [employer] Comment on above: Result Comment: Refe rence Range: NEGATIVE Effective 09/07/2019, the reference interval for the qualitative test has been updated. This test detects hCG at concentrations of 10 mIU/L or greater in serum. Performed By: #### H EMDF, BMP3, QWAL2 #### [facility] [employer] [facility] [address] [place] [address] XR Chest PA and Lateralon IMPRESSION: No acute radiographic abnormality. Adult Parole Officer: DARSHAN Transcribe Date/Time: Mar 09 2021 10:00A Dictated by : ALEX MUNIZ MD This examination was interpreted and the report reviewed and electronically signed by: ALEX MUNIZ MD on Mar 09 2021 10:01AM [facility] DIVISION OF RADIOLOGY * * *Final [...] tissues: Unremarkable. DIVISION OF RADIOLOGY Provider, [facility] Laura Garcia - 03/09/2021 * * *Final Report* * [...] Unremarkable. IMPRESSION IMPRESSION: No acute radiographic abnormality. Adult Parole Officer: PSCB Transcribe Date/Time: Mar 09 2021 10:00A Dictated by : ALEX MUNIZ MD This examination was interpreted and the report reviewed and electronically signed by: ALEX MUNIZ MD on Mar 09 2021 10:01AM EST [facility] Radiology Study observation (narrative) [facility] XR Chest PA and LateralOrder ed By: Ccf Provider on 03-09-2021 [facility] Basic Panelon 07-02-2018 Anion gap 3 molar conc 8 mmol/L Normal 8-20 [facility] Comment on above: Performed By: #### L P8 ####[place] [address] Calcium mass conc 8.9 mg/dL Normal 8.5-10.1 [facility] Comment on above: Performed By: #### L P8 ####[place] [address] Chloride molar conc 104 mmol/L Normal 98-107 [facility] Comment on above: Performed By: #### L P8 ####[facility] [place] [address] CO2 molar conc 27 mmol/L Normal 21-32 [facility] Comment on above: Performed By: #### L P8 ####[facility] [place] [address] Creatinine mass conc 0.87 mg/dL Normal 0.51-0.95 [facility] Comment on above: Performed By: #### L P8 ####[facility] [place] [address] Glucose mass conc 89 mg/dL Normal 70-99 [facility] Comment on above: Performed By: #### L P8 ####[facility] [place] [address] Potassium molar conc 3.5 mmol/L Normal 3.5-5.1 [facility] Comment on above: Performed By: #### L P8 ####[place] [address] Sodium molar conc 136 mmol/L Normal 136-145 [facility] Comment on above: Performed By: #### L P8 ####[place] [address] Urea nitrogen mass conc (Bld) 11 mg/dL Normal 7-25 [facility] Comment on above: Performed By: #### L P8 ####[place] [address] Urea nitrogen/Creatinine mass ratio 13 mg/mg Normal 10-20 [facility] Comment on above: Performed By: #### L P8 ####[place] [address] CPKon 07-02-2018 CPK 539 U/L High 26-192 [facility] Comment on above: Performed By: #### L CK ####[place] [address] Cult Urineon 07-02-2018 Cult Urine Test performed at [facility] No growth Normal [facility] Comment on above: Performed By: #### C _URI ####[place] [address] Hemogram/Manual Diffon 07-02 Abs. Baso 0.00 thou/cmm Normal 0.00-0.08 [facility] Comment on above: Performed By: #### L MCBD ####[place] [address] Abs. Eosin 0.14 thou/cmm Normal 0.00-0.41 [facility] Comment on above: Performed By: #### L MCBD ####[place] [address] Abs. Lymph 3.15 thou/cmm Normal 1.50-3.65 [facility] Comment on above: Performed By: #### L MCBD ####[facility] [place] [address] Abs. [place] 1.10 thou/cmm High 0.20-1.00 [facility] Comment on above: Performed By: #### L MCBD ####[place] [address] Abs. Neut (ANC) 9.31 thou/cmm High 3.00-5.67 [facility] Comment on above: Performed By: #### L MCBD ####[place] [address] Basophil 0.0 % Normal [facility] Comment on above: Performed By: #### L MCBD ####[place] [address] Diff Type Manual Diff Normal [facility] Comment on above: Performed By: #### L MCBD ####[place] [address] Eosinophil 1.0 % Normal [facility] Comment on above: Performed By: #### L MCBD ####[place] [address] Lymphocyte 23.0 % Normal [facility] Comment on above: Performed By: #### L MCBD ####[place] [address] Monocyte 8.0 % Normal [facility] Comment on above: Performed By: #### L MCBD ####[place] [address] Platelet Estimate Normal Normal [facility] Comment on above: Performed By: #### L MCBD ####[place] [address] RBC Morphology Normal Normal [facility] Comment on above: Performed By: #### L MCBD ####[place] [address] Seg Neutrophil 68.0 % Normal [facility] Comment on above: Performed By: #### L MCBD ####[place] [address] Erythrocyte distribution width Auto Ratio (RBC) 12.0 % Normal 11.5-15.9 [facility] Comment on above: Performed By: #### L MCBD ####[place] [address] Hct 39.1 % Normal 37.0-47.0 [facility] Comment on above: Performed By: #### L MCBD ####[place] [address] Hgb 13.5 g/dL Normal 12.0-16.0 [facility] Comment on above: Performed By: #### L MCBD ####[place] [address] MCH 32.1 pg High 27.0-31.0 [facility] Comment on above: Performed By: #### L MCBD ####[place] [address] MCHC 34.5 % Normal 32.0-36.0 [facility] Comment on above: Performed By: #### L MCBD ####[place] [address] MCV 92.9 fl Normal 81.0-99.0 [facility] Comment on above: Performed By: #### L MCBD ####[place] [address] MPV 10.3 fl Normal 7.1-10.5 [facility] Comment on above: Performed By: #### L MCBD ####[place] [address] Platelet 256 thou/cmm Normal 150-400 [facility] Comment on above: Performed By: #### L MCBD ####[place] [address] RBC Test strip #/vol (U) 4.21 mil/cmm Normal 4.20-5.40 [facility] Comment on above: Performed By: #### L MCBD ####[place] [address] WBC 13.7 thou/cmm High 4.8-10.8 [facility] Comment on above: Performed By: #### L MCBD ####[place] [address] MDRD eGFRon 07-02-2018 GFR/1.73 sq M predicted among non-blacks MDRD vol rate/area (S/P/Bld) mL/min/{1.73_m2} Normal >60mL/min/1.73m 2 [facility] Comment on above: Result Comment: If t he patient is , multiply the result by 1.210. Performed By: #### L GFR ####[place] [address] Rapid Influenza A/Bon 2018 Rapid Influenza A/B See below Normal Negative [facility] Comment on above: Result Comment: Nega tive for influenza A and B. Performed By: #### L RFLU ####[place] [address] TSHon 07-02-2018 Thyrotropin Qn 1.96 uIU/mL Normal 0.34-4.82 [facility] Comment on above: Performed By: #### L TSH ####[place] [address] Urinalysis Routineon 019 Appearance Nom (U) 1+ (HAZY) Normal [facility] Comment on above: Performed By: #### L URIN ####[place] [address] Bacteria LM.HPF #/area (Urine sed) MANY Abnormal None [facility] Comment on above: Performed By: #### L URIN ####[place] [address] Bilirubin Urine Negative Normal Negative [facility] Comment on above: Performed By: #### L URIN ####[place] [address] Color Nom (U) DARK YELLOW Normal [facility] Comment on above: Performed By: #### L URIN ####[facility] [place], [place] [address] Ep Cells Urine 13-20 Normal 0-5 [facility] Comment on above: Performed By: #### L URIN ####[address] [address] Glucose Ql (U) Negative Normal Negative [facility] Comment on above: Performed By: #### L URIN ####[place] [address] Hemoglobin,Urine Negative Normal Negative [facility] Comment on above: Performed By: #### L URIN ####[place] [address] Ketone Urine Negative Normal Negative [facility] Comment on above: Performed By: #### L URIN ####[place] [address] Leukocytes Esterase Negative Normal Negative [facility] Comment on above: Performed By: #### L URIN ####[place] [address] Nitrites Urine Negative Normal Negative [facility] Comment on above: Performed By: #### L URIN ####[place] [address] pH Test strip (U) 6.0 [pH] Normal 5.0-8.0 [facility] Comment on above: Performed By: #### L URIN ####[address] [address] Protein Urine Negative Normal Negative [facility] Comment on above: Performed By: #### L URIN ####[place] [address] RBC LM.HPF #/area (Urine sed) NONE Normal 0-3 [facility] Comment on above: Performed By: #### L URIN ####[place] [address] Specific [place], Ur 1.025 Normal 1.005-1.030 [facility] Comment on above: Performed By: #### L URIN ####[facility] [place], [place] [address] Urobilinogen,Ur 0.2 EU/dL Normal 0.0-1.0 [facility] Comment on above: Performed By: #### L URIN ####[facility] [place], [place] [address] WBC LM.HPF #/area (Urine sed) NONE Normal 0-5 [facility] Comment on above: Performed By: #### L URIN ####[facility] [place], [place] [address] FOOT 3V AP/LAT/OBL LEFTon FOOT 3V AP/LAT/OBL LEFT Performed at [facility] APPROVED BY: Jonh Landry MD EXAM TITLE: THREE VIEWS OF THE LEFT FOOT DATE:01/30/2018 12:40 COMPARISON: None. CLINICAL INDICATION/HISTORY: Pain and swelling TECHNIQUE: AP, lateral and oblique images FINDINGS: No fracture or dislocation is seen. Osseous relationships are maintained on this nonweightbearing study. No suspicious osseous lesions. Joint spaces are preserved. IMPRESSION: Negative foot x-ray Normal [facility] CT ABDOMEN AND PELVIS W/O CO NTRASTon 01-23-2018 CT ABDOMEN AND PELVIS W/O CONTRAST Performed at [facility] APPROVED BY: Adry Cabrera MD Exam Title: [...] are no signs of appendicitis otherwise. Normal [facility] Chlam/GC-DNA Amplifiedon Chlam/GC-DNA Amplified [facility] trachomatis DNA NOT DETECTEDNeisseria gonorrhoeae DNA NOT DETECTEDReference range NOT DETECTEDMethod: Strand Displacement Amplification-BD Probe[employer]ec AssayComment: A negative result does not precludeC.trachomatis or N. gonorrhoeae infection becauseresults are dependent on adequate specimen collection,absence of inhibitors, and sufficient DNA to be detected. Normal [facility] Comment on above: Performed By: #### C TGCA ####[place] [address] Comprehensive Panelon 2017 Albumin mass conc 4.0 g/dL Normal 3.4-5.0 [facility] Comment on above: Performed By: #### L P14 ####[place] [address] ALP enzyme act/vol 63 U/L Normal 46-116 [facility] Comment on above: Performed By: #### L P14 ####[place] [address] ALT-SGPT Blood 41 U/L Normal 14-63 [facility] Comment on above: Performed By: #### L P14 ####[place] [address] Anion gap 3 molar conc 12 mmol/L Normal 8-20 [facility] Comment on above: Performed By: #### L P14 ####[place] [address] AST-SGOT Blood 29 U/L Normal 15-37 [facility] Comment on above: Performed By: #### L P14 ####[address] [address] Bilirubin Ql (U) 0.6 mg/dL Normal 0.2-1.0 [facility] Comment on above: Performed By: #### L P14 ####[facility] [place], [place] [address] Calcium mass conc 8.9 mg/dL Normal 8.5-10.1 [facility] Comment on above: Performed By: #### L P14 ####[facility] [place], [place] [address] Chloride molar conc 93 mmol/L Low 98-107 [facility] Comment on above: Performed By: #### L P14 ####[place] [address] CO2 molar conc 24 mmol/L Normal 21-32 [facility] Comment on above: Performed By: #### L P14 ####[place] [address] Creatinine mass conc 0.69 mg/dL Normal 0.51-0.95 [facility] Comment on above: Performed By: #### L P14 ####[place] [address] Glucose mass conc 69 mg/dL Low 70-99 [facility] Comment on above: Performed By: #### L P14 ####[place] [address] Potassium molar conc 3.7 mmol/L Normal 3.5-5.1 [facility] Comment on above: Performed By: #### L P14 ####[address] [address] Protein mass conc 7.5 g/dL Normal 6.4-8.2 [facility] Comment on above: Performed By: #### L P14 ####[place] [address] Sodium molar conc 125 mmol/L Low 136-145 [facility] Comment on above: Performed By: #### L P14 ####[place] [address] Urea nitrogen mass conc (Bld) 7 mg/dL Normal 7-25 [facility] Comment on above: Performed By: #### L P14 ####[place] [address] Urea nitrogen/Creatinine mass ratio 10 mg/mg Normal 10-20 [facility] Comment on above: Performed By: #### L P14 ####[place] [address] Hemogram/Manual Diffon 01-23 Abs. Baso 0.17 thou/cmm High 0.00-0.08 [facility] Comment on above: Performed By: #### L MCBD ####[place] [address] Abs. Eosin 0.00 thou/cmm Normal 0.00-0.41 [facility] Comment on above: Performed By: #### L MCBD ####[place] [address] Abs. Lymph 2.22 thou/cmm Normal 1.50-3.65 [facility] Comment on above: Performed By: #### L MCBD ####[place] [address] Abs. [place] 2.05 thou/cmm High 0.20-1.00 [facility] Comment on above: Performed By: #### L MCBD ####[place] [address] Abs. Neut (ANC) 12.66 thou/cmm High 3.00-5.67 [facility] Comment on above: Performed By: #### L MCBD ####[place] [address] Basophil 1.0 % Normal [facility] Comment on above: Performed By: #### L MCBD ####[place] [address] Eosinophil 0.0 % Normal [facility] Comment on above: Performed By: #### L MCBD ####[place] [address] Lymphocyte 13.0 % Normal [facility] Comment on above: Performed By: #### L MCBD ####[facility] [place] [address] Monocyte 12.0 % Normal [facility] Comment on above: Performed By: #### L MCBD ####[place] [address] Platelet Estimate Normal Normal [facility] Comment on above: Performed By: #### L MCBD ####[place] [address] RBC Morphology Normal Normal [facility] Comment on above: Performed By: #### L MCBD ####[place] [address] Seg Neutrophil 74.0 % Normal [facility] Comment on above: Performed By: #### L MCBD ####[place] [address] Diff Type Manual Diff Normal [facility] Comment on above: Performed By: #### L MCBD ####[place] [address] Erythrocyte distribution width Auto Ratio (RBC) 11.6 % Normal 11.5-15.9 [facility] Comment on above: Performed By: #### L MCBD ####[place] [address] Hct 40.8 % Normal 37.0-47.0 [facility] Comment on above: Performed By: #### L MCBD ####[place] [address] Hgb 14.2 g/dL Normal 12.0-16.0 [facility] Comment on above: Performed By: #### L MCBD ####[place] [address] MCH 31.8 pg High 27.0-31.0 [facility] Comment on above: Performed By: #### L MCBD ####[place] [address] MCHC 34.8 % Normal 32.0-36.0 [facility] Comment on above: Performed By: #### L MCBD ####[facility] [place], [place] [address] MCV 91.3 fl Normal 81.0-99.0 [facility] Comment on above: Performed By: #### L MCBD ####[facility] [place], [place] [address] MPV 10.0 fl Normal 7.1-10.5 [facility] Comment on above: Performed By: #### L MCBD ####[address] [address] Platelet 263 thou/cmm Normal 150-400 [facility] Comment on above: Performed By: #### L MCBD ####[place] [address] RBC Test strip #/vol (U) 4.47 mil/cmm Normal 4.20-5.40 [facility] Comment on above: Performed By: #### L MCBD ####[place] [address] WBC 17.1 thou/cmm High 4.8-10.8 [facility] Comment on above: Performed By: #### L MCBD ####[place] [address] MDRD eGFRon 01-23-2018 GFR/1.73 sq M predicted among non-blacks MDRD vol rate/area (S/P/Bld) mL/min/{1.73_m2} Normal >60mL/min/1.73m 2 [facility] Comment on above: Result Comment: If t he patient is , multiply the result by 1.210. Performed By: #### L GFR ####[address] [address] Macroscopic Urinalysison Appearance Nom (U) CLEAR Normal [facility] Comment on above: Performed By: #### L MACU ####[address] [address] Bilirubin Urine Negative Normal Negative [facility] Comment on above: Performed By: #### L MACU ####[facility] [place] [address] Color Nom (U) STRAW Normal [facility] Comment on above: Performed By: #### L MACU ####[address] [address] Glucose Ql (U) Negative Normal Negative [facility] Comment on above: Performed By: #### L MACU ####[place] [address] Hemoglobin,Urine Negative Normal Negative [facility] Comment on above: Performed By: #### L MACU ####[place] [address] Ketone Urine Negative Normal Negative [facility] Comment on above: Performed By: #### L MACU ####[place] [address] Leukocytes Esterase Negative Normal Negative [facility] Comment on above: Performed By: #### L MACU ####[place] [address] Nitrites Urine Negative Normal Negative [facility] Comment on above: Performed By: #### L MACU ####[place] [address] pH Test strip (U) 6.5 [pH] Normal 5.0-8.0 [facility] Comment on above: Performed By: #### L MACU ####[place] [address] Protein Urine Negative Normal Negative [facility] Comment on above: Performed By: #### L MACU ####[place] [address] Specific [place], Ur <=1.005 Normal 1.005-1.030 [facility] Comment on above: Performed By: #### L MACU ####[place] [address] Urobilinogen,Ur 0.2 EU/dL Normal 0.0-1.0 [facility] Comment on above: Performed By: #### L MACU ####[place] [address] US PELVIS NON-OB COMPLETEon 01-23-2018 US PELVIS NON-OB COMPLETE Performed at [facility] APPROVED BY: Adry Cabrera MD EXAMINATION: TRANSVAGINAL [...] uterine fibroids and small uterine cyst. Normal [facility] US TRANSVAGINALon 01-23-2018 US TRANSVAGINAL Performed at [facility] APPROVED BY: Adry Cabrera MD EXAMINATION: TRANSVAGINAL [...] uterine fibroids and small uterine cyst. [facility] Vital Signs Date Time Vital Sign Value Performing Clinician Halina lyles 12-03-2024 10:53-0400 Diastolic blood pressure 65 mm[Hg] Sam Erin STRATEGIC CLIENT EXECUTIVE.PUTTY REMOVER Work Phone: [facility] 12-03-2024 10:53-0400 Heart rate 79 /min Sam Erin STRATEGIC CLIENT EXECUTIVE.PUTTY REMOVER Work Phone: [facility] 12-03-2024 10:53-0400 SaO2% (BldA) [Mass fraction] 98 % Sam Erin STRATEGIC CLIENT EXECUTIVE.PUTTY REMOVER Work Phone: [facility] 12-03-2024 10:53-0400 Systolic blood pressure 111 mm[Hg] Sam Erin STRATEGIC CLIENT EXECUTIVE.PUTTY REMOVER Work Phone: [facility] 11-28-2024 11:12-0400 Body mass index (BMI) [Ratio] 20.73 kg/m2 Sam Erin STRATEGIC CLIENT EXECUTIVE.PUTTY REMOVER Work Phone: [facility] 11-28-2024 11:12-0400 Body weight 56.5 kg Sam Erin STRATEGIC CLIENT EXECUTIVE.PUTTY REMOVER Work Phone: [facility] 11-28-2024 11:12-0400 Diastolic blood pressure 74 mm[Hg] Sam Erin STRATEGIC CLIENT EXECUTIVE.PUTTY REMOVER Work Phone: [facility] 11-28-2024 11:12-0400 Heart rate 117 /min Sam Erin STRATEGIC CLIENT EXECUTIVE.PUTTY REMOVER Work Phone: [facility] 11-28-2024 11:12-0400 SaO2% (BldA) [Mass fraction] 98 % Sam Erin STRATEGIC CLIENT EXECUTIVE.PUTTY REMOVER Work Phone: [facility] 11-28-2024 11:12-0400 Systolic blood pressure 110 mm[Hg] Sam Erin STRATEGIC CLIENT EXECUTIVE.PUTTY REMOVER Work Phone: [facility] 11-22-2024 09:22-0400 Body mass index (BMI) [Ratio] 21.06 kg/m2 Karen Gaspar STRATEGIC CLIENT EXECUTIVE.RECORDING ENGINEER Work Phone: [facility] 11-22-2024 09:22-0400 Body weight 57.4 kg Kaern Gaspar STRATEGIC CLIENT EXECUTIVE.RECORDING ENGINEER Work Phone: [facility] 11-22-2024 09:22-0400 Diastolic blood pressure 73 mm[Hg] Karen Gaspar STRATEGIC CLIENT EXECUTIVE.RECORDING ENGINEER Work Phone: [facility] 11-22-2024 09:22-0400 Heart rate 92 /min Karen Gaspar STRATEGIC CLIENT EXECUTIVE.RECORDING ENGINEER Work Phone: [facility] 11-22-2024 09:22-0400 Respiratory rate 16 /min Karen Gaspar STRATEGIC CLIENT EXECUTIVE.RECORDING ENGINEER Work Phone: [facility] 11-22-2024 09:22-0400 Systolic blood pressure 104 mm[Hg] Karen Gaspar STRATEGIC CLIENT EXECUTIVE.RECORDING ENGINEER Work Phone: [facility] 11-02-2024 09:50-0400 Body mass index (BMI) [Ratio] 21.31 kg/m2 Sam Erin STRATEGIC CLIENT EXECUTIVE.PUTTY REMOVER Work Phone: [facility] 11-02-2024 09:50-0400 Body weight 58.1 kg Sam Erin STRATEGIC CLIENT EXECUTIVE.PUTTY REMOVER Work Phone: [facility] 11-02-2024 09:50-0400 Diastolic blood pressure 79 mm[Hg] Sam Erin STRATEGIC CLIENT EXECUTIVE.PUTTY REMOVER Work Phone: [facility] 11-02-2024 09:50-0400 Heart rate 102 /min Sam Erin STRATEGIC CLIENT EXECUTIVE.PUTTY REMOVER Work Phone: [facility] 11-02-2024 09:50-0400 SaO2% (BldA) [Mass fraction] 97 % Sam Erin STRATEGIC CLIENT EXECUTIVE.PUTTY REMOVER Work Phone: [facility] 11-02-2024 09:50-0400 Systolic blood pressure 112 mm[Hg] Sam Erin STRATEGIC CLIENT EXECUTIVE.PUTTY REMOVER Work Phone: [facility] 09-28-2024 09:05-0400 Body height 165.1 cm Pacc 1 Work Phone: [facility] 09-28-2024 09:05-0400 Body mass index (BMI) [Ratio] 21.13 kg/m2 Pacc 1 Work Phone: [facility] 09-28-2024 09:05-0400 Body temperature 97.11 [degF] Pacc 1 Work Phone: [facility] 09-28-2024 09:05-0400 Body weight 57.61 kg Pacc 1 Work Phone: [facility] 09-28-2024 09:05-0400 Diastolic blood pressure 78 mm[Hg] Pacc 1 Work Phone: [facility] 09-28-2024 09:05-0400 Heart rate 85 /min Pacc 1 Work Phone: [facility] 09-28-2024 09:05-0400 Respiratory rate 14 /min Pacc 1 Work Phone: [facility] 09-28-2024 09:05-0400 SaO2% (BldA) [Mass fraction] 98 % Pacc 1 Work Phone: [facility] 09-28-2024 09:05-0400 Systolic blood pressure 102 mm[Hg] Pacc 1 Work Phone: [facility] 09-21-2024 08:53-0400 Body mass index (BMI) [Ratio] 20.1 kg/m2 Sam Erin STRATEGIC CLIENT EXECUTIVE.PUTTY REMOVER Work Phone: [facility] 09-21-2024 08:53-0400 Body weight 56.5 kg Sam Erin STRATEGIC CLIENT EXECUTIVE.PUTTY REMOVER Work Phone: [facility] 09-21-2024 08:53-0400 Diastolic blood pressure 70 mm[Hg] Sam Erin STRATEGIC CLIENT EXECUTIVE.PUTTY REMOVER Work Phone: [facility] 09-21-2024 08:53-0400 Heart rate 98 /min Sam Khan STRATEGIC CLIENT EXECUTIVE.PUTTY REMOVER Work Phone: [facility] 09-21-2024 08:53-0400 SaO2% (BldA) [Mass fraction] 98 % Sam Verduzcor STRATEGIC CLIENT EXECUTIVE.PUTTY REMOVER Work Phone: [facility] 09-21-2024 08:53-0400 Systolic blood pressure 110 mm[Hg] Sam Verduzcor STRATEGIC CLIENT EXECUTIVE.PUTTY REMOVER Work Phone: [facility] 07-31-2024 10:37-0500 Body mass index (BMI) [Ratio] 19.93 kg/m2 Maile Norman MD Work Phone: [facility] 07-31-2024 10:37-0500 Body weight 56 kg Maile Norman MD Work Phone: [facility] 07-31-2024 10:37-0500 Diastolic blood pressure 76 mm[Hg] Maile Norman MD Work Phone: [facility] 07-31-2024 10:37-0500 Heart rate 88 /min Maile Norman MD Work Phone: [facility] 07-31-2024 10:37-0500 SaO2% (BldA) [Mass fraction] 98 % Maile Norman MD Work Phone: [facility] 07-31-2024 10:37-0500 Systolic blood pressure 126 mm[Hg] Maile Norman MD Work Phone: [facility] 07-13-2024 10:39-0500 Body mass index (BMI) [Ratio] 21.35 kg/m2 Karen Gaspar STRATEGIC CLIENT EXECUTIVE.RECORDING ENGINEER Work Phone: [facility] 07-13-2024 10:39-0500 Body weight 60 kg Karen Gaspar STRATEGIC CLIENT EXECUTIVE.RECORDING ENGINEER Work Phone: [facility] 07-13-2024 10:39-0500 Diastolic blood pressure 85 mm[Hg] Karen Gaspar STRATEGIC CLIENT EXECUTIVE.RECORDING ENGINEER Work Phone: [facility] 07-13-2024 10:39-0500 Heart rate 84 /min Karen Gaspar STRATEGIC CLIENT EXECUTIVE.RECORDING ENGINEER Work Phone: [facility] 07-13-2024 10:39-0500 Respiratory rate 16 /min Karen Gaspar STRATEGIC CLIENT EXECUTIVE.RECORDING ENGINEER Work Phone: [facility] 07-13-2024 10:39-0500 Systolic blood pressure 122 mm[Hg] Karen Gaspar STRATEGIC CLIENT EXECUTIVE.RECORDING ENGINEER Work Phone: [facility] 07-11-2024 09:37-0500 Body height 167.6 cm Maile Norman MD Work Phone: [facility] 07-11-2024 09:37-0500 Body mass index (BMI) [Ratio] 20.32 kg/m2 Maile Norman MD Work Phone: [facility] 07-11-2024 09:37-0500 Body weight 57.1 kg Maile Norman MD Work Phone: [facility] 07-11-2024 09:37-0500 Diastolic blood pressure 68 mm[Hg] Maile Norman MD Work Phone: [facility] 07-11-2024 09:37-0500 Heart rate 90 /min Maile Norman MD Work Phone: [facility] 07-11-2024 09:37-0500 SaO2% (BldA) [Mass fraction] 98 % Maile Norman MD Work Phone: [facility] 07-11-2024 09:37-0500 Systolic blood pressure 90 mm[Hg] Maile Norman MD Work Phone: [facility] 07-09-2024 07:08-0500 Body height 165.1 cm Cecile Harshad STRATEGIC CLIENT EXECUTIVE.PUTTY REMOVER Work Phone: [facility] 07-09-2024 07:08-0500 Body mass index (BMI) [Ratio] 20.97 kg/m2 Cecile [place] STRATEGIC CLIENT EXECUTIVE.PUTTY REMOVER Work Phone: [facility] 07-09-2024 07:08-0500 Body weight 57.15 kg Cecile Harshad STRATEGIC CLIENT EXECUTIVE.PUTTY REMOVER Work Phone: [facility] 07-09-2024 07:08-0500 Diastolic blood pressure 62 mm[Hg] Cecile Harshad STRATEGIC CLIENT EXECUTIVE.PUTTY REMOVER Work Phone: [facility] 07-09-2024 07:08-0500 Systolic blood pressure 110 mm[Hg] Cecile Harshad STRATEGIC CLIENT EXECUTIVE.PUTTY REMOVER Work Phone: [facility] 05-23-2024 07:28-0500 Body mass index (BMI) [Ratio] 20.47 kg/m2 Galo [facility] STRATEGIC CLIENT EXECUTIVE.PUTTY REMOVER Work Phone: [facility] 05-23-2024 07:28-0500 Body temperature 97.59 [degF] [facility] STRATEGIC CLIENT EXECUTIVE.PUTTY REMOVER Work Phone: [facility] 05-23-2024 07:28-0500 Body weight 55.8 kg [facility] STRATEGIC CLIENT EXECUTIVE.PUTTY REMOVER Work Phone: [facility] 05-23-2024 07:28-0500 Diastolic blood pressure 82 mm[Hg] Galo [facility] STRATEGIC CLIENT EXECUTIVE.PUTTY REMOVER Work Phone: [facility] 05-23-2024 07:28-0500 Heart rate 96 /min [facility] STRATEGIC CLIENT EXECUTIVE.PUTTY REMOVER Work Phone: [facility] 05-23-2024 07:28-0500 Respiratory rate 18 /min [facility] STRATEGIC CLIENT EXECUTIVE.PUTTY REMOVER Work Phone: [facility] 05-23-2024 07:28-0500 SaO2% (BldA) [Mass fraction] 96 % [facility] STRATEGIC CLIENT EXECUTIVE.PUTTY REMOVER Work Phone: [facility] 05-23-2024 07:28-0500 Systolic blood pressure 122 mm[Hg] [facility] STRATEGIC CLIENT EXECUTIVE.PUTTY REMOVER Work Phone: [facility] 05-15-2024 12:59-0500 Body mass index (BMI) [Ratio] 20.58 kg/m2 Anny Cuong STRATEGIC CLIENT EXECUTIVE.PUTTY REMOVER Work Phone: [facility] 05-15-2024 12:59-0500 Body temperature 98.2 [degF] Anny Cuong STRATEGIC CLIENT EXECUTIVE.PUTTY REMOVER Work Phone: [facility] 05-15-2024 12:59-0500 Body weight 56.1 kg Anny Cuong STRATEGIC CLIENT EXECUTIVE.PUTTY REMOVER Work Phone: [facility] 05-15-2024 12:59-0500 Diastolic blood pressure 84 mm[Hg] Anny Cuong STRATEGIC CLIENT EXECUTIVE.PUTTY REMOVER Work Phone: [facility] 05-15-2024 12:59-0500 Heart rate 88 /min Anny Cuong STRATEGIC CLIENT EXECUTIVE.PUTTY REMOVER Work Phone: [facility] 05-15-2024 12:59-0500 Respiratory rate 18 /min Anny [place] STRATEGIC CLIENT EXECUTIVE.PUTTY REMOVER Work Phone: [facility] 05-15-2024 12:59-0500 Systolic blood pressure 122 mm[Hg] Anny Cuong STRATEGIC CLIENT EXECUTIVE.PUTTY REMOVER Work Phone: [facility] 05-11-2024 08:43-0500 Body mass index (BMI) [Ratio] 20.4 kg/m2 Yodit Saxena STRATEGIC CLIENT EXECUTIVE.PUTTY REMOVER Work Phone: [facility] 05-11-2024 08:43-0500 Body temperature 97.59 [degF] Yodit Saxena STRATEGIC CLIENT EXECUTIVE.PUTTY REMOVER Work Phone: [facility] 05-11-2024 08:43-0500 Body weight 55.6 kg Yodit Saxena STRATEGIC CLIENT EXECUTIVE.PUTTY REMOVER Work Phone: [facility] 05-11-2024 08:43-0500 Diastolic blood pressure 88 mm[Hg] Yodit Saxena STRATEGIC CLIENT EXECUTIVE.PUTTY REMOVER Work Phone: [facility] 05-11-2024 08:43-0500 Heart rate 104 /min Yodit Saxena STRATEGIC CLIENT EXECUTIVE.PUTTY REMOVER Work Phone: [facility] 05-11-2024 08:43-0500 Respiratory rate 20 /min Yodit Saxena STRATEGIC CLIENT EXECUTIVE.PUTTY REMOVER Work Phone: [facility] 05-11-2024 08:43-0500 SaO2% (BldA) [Mass fraction] 98 % Yodit Saxena STRATEGIC CLIENT EXECUTIVE.PUTTY REMOVER Work Phone: [facility] 05-11-2024 08:43-0500 Systolic blood pressure 120 mm[Hg] Yodit Saxena STRATEGIC CLIENT EXECUTIVE.PUTTY REMOVER Work Phone: [facility] 05-10-2024 12:02-0500 Body mass index (BMI) [Ratio] 20.14 kg/m2 Karen Gaspar STRATEGIC CLIENT EXECUTIVE.RECORDING ENGINEER Work Phone: [facility] 05-10-2024 12:02-0500 Body weight 54.9 kg Karen Gaspar STRATEGIC CLIENT EXECUTIVE.RECORDING ENGINEER Work Phone: [facility] 05-10-2024 12:02-0500 Diastolic blood pressure 73 mm[Hg] Karen Gaspar STRATEGIC CLIENT EXECUTIVE.RECORDING ENGINEER Work Phone: [facility] 05-10-2024 12:02-0500 Heart rate 108 /min Karen Gaspar STRATEGIC CLIENT EXECUTIVE.RECORDING ENGINEER Work Phone: [facility] 05-10-2024 12:02-0500 Respiratory rate 16 /min Karen Gaspar STRATEGIC CLIENT EXECUTIVE.RECORDING ENGINEER Work Phone: [facility] 05-10-2024 12:02-0500 Systolic blood pressure 125 mm[Hg] Karen Gaspar STRATEGIC CLIENT EXECUTIVE.RECORDING ENGINEER Work Phone: [facility] 04-29-2024 20:50-0500 Body temperature 96.98 [degF] JUAN MIGUEL MANLEY MD [facility] 04-29-2024 20:50-0500 Body weight 56.4 kg JUAN MIGUEL MANLEY MD [facility] 04-29-2024 20:50-0500 Diastolic Blood Pressure Non-Invasive 85 mm[Hg] JUAN MIGUEL MANLEY MD [facility] 04-29-2024 20:50-0500 Heart rate 80 /min JUAN MIGUEL MANLEY MD [facility] 04-29-2024 20:50-0500 Respiratory rate 16 /min JUAN MIGUEL MANLEY MD [facility] 04-29-2024 20:50-0500 Systolic Blood Pressure Non-Invasive 126 mm[Hg] JUAN MIGUEL MANLEY MD [facility] 04-25-2024 13:04-0400 Body mass index (BMI) [Ratio] 20.58 kg/m2 Sam Erin STRATEGIC CLIENT EXECUTIVE.PUTTY REMOVER Work Phone: [facility] 04-25-2024 13:04-0400 Body weight 56.1 kg Sam Erin STRATEGIC CLIENT EXECUTIVE.PUTTY REMOVER Work Phone: [facility] 04-25-2024 13:04-0400 Diastolic blood pressure 88 mm[Hg] Sam Erin STRATEGIC CLIENT EXECUTIVE.PUTTY REMOVER Work Phone: [facility] 04-25-2024 13:04-0400 Heart rate 87 /min Sam Erin STRATEGIC CLIENT EXECUTIVE.PUTTY REMOVER Work Phone: [facility] 04-25-2024 13:04-0400 Respiratory rate 16 /min Sam Erin STRATEGIC CLIENT EXECUTIVE.PUTTY REMOVER Work Phone: [facility] 04-25-2024 13:04-0400 SaO2% (BldA) [Mass fraction] 99 % Sam Erin STRATEGIC CLIENT EXECUTIVE.PUTTY REMOVER Work Phone: [facility] 04-25-2024 13:04-0400 Systolic blood pressure 144 mm[Hg] Sam Erin STRATEGIC CLIENT EXECUTIVE.PUTTY REMOVER Work Phone: [facility] 04-13-2024 12:39-0400 Body mass index (BMI) [Ratio] 20.18 kg/m2 Pennie Clemente APRN.PUTTY REMOVER Work Phone: [facility] 04-13-2024 12:39-0400 Body temperature 97 [degF] Pennie Praisler-Wood STRATEGIC CLIENT EXECUTIVE.PUTTY REMOVER Work Phone: [facility] 04-13-2024 12:39-0400 Body weight 55 kg Pennie Praisler-Wood STRATEGIC CLIENT EXECUTIVE.PUTTY REMOVER Work Phone: [facility] 04-13-2024 12:39-0400 Diastolic blood pressure 78 mm[Hg] Pennie Praisler-Wood STRATEGIC CLIENT EXECUTIVE.PUTTY REMOVER Work Phone: [facility] 04-13-2024 12:39-0400 Heart rate 78 /min Pennie Praisler-Wood STRATEGIC CLIENT EXECUTIVE.[facility] Work Phone: [facility] 04-13-2024 12:39-0400 Respiratory rate 16 /min Pennie Praisler-Wood STRATEGIC CLIENT EXECUTIVE.[facility] Work Phone: [facility] 04-13-2024 12:39-0400 SaO2% (BldA) [Mass fraction] 100 % Pennie Praisler-Wood STRATEGIC CLIENT EXECUTIVE.PUTTY REMOVER Work Phone: [facility] 04-13-2024 12:39-0400 Systolic blood pressure 112 mm[Hg] Pennie Praisler-Wood STRATEGIC CLIENT EXECUTIVE.[facility] Work Phone: [facility] 03-28-2024 15:49-0400 Body mass index (BMI) [Ratio] 20.84 kg/m2 Maile Norman MD Work Phone: [facility] 03-28-2024 15:49-0400 Body temperature 97.3 [degF] Maile Norman MD Work Phone: [facility] 03-28-2024 15:49-0400 Body weight 56.8 kg Maile Norman MD Work Phone: [facility] 03-28-2024 15:49-0400 Diastolic blood pressure 87 mm[Hg] Maile Norman MD Work Phone: [facility] 03-28-2024 15:49-0400 Heart rate 80 /min Maile Norman MD Work Phone: [facility] 03-28-2024 15:49-0400 Respiratory rate 16 /min Miale Norman MD Work Phone: [facility] 03-28-2024 15:49-0400 SaO2% (BldA) [Mass fraction] 100 % Maile Norman MD Work Phone: [facility] 03-28-2024 15:49-0400 Systolic blood pressure 133 mm[Hg] Maile Norman MD Work Phone: [facility] 02-28-2024 08:35-0400 Body mass index (BMI) [Ratio] 20.21 kg/m2 Sam Erin STRATEGIC CLIENT EXECUTIVE.PUTTY REMOVER Work Phone: [facility] 02-28-2024 08:35-0400 Body temperature 97 [degF] Sam Erin STRATEGIC CLIENT EXECUTIVE.PUTTY REMOVER Work Phone: [facility] 02-28-2024 08:35-0400 Body weight 55.1 kg Sam Erin STRATEGIC CLIENT EXECUTIVE.PUTTY REMOVER Work Phone: [facility] 02-28-2024 08:35-0400 Diastolic blood pressure 80 mm[Hg] Sam Erin STRATEGIC CLIENT EXECUTIVE.PUTTY REMOVER Work Phone: [facility] 02-28-2024 08:35-0400 Heart rate 78 /min Sam Erin STRATEGIC CLIENT EXECUTIVE.PUTTY REMOVER Work Phone: [facility] 02-28-2024 08:35-0400 Respiratory rate 20 /min Sam Erin STRATEGIC CLIENT EXECUTIVE.PUTTY REMOVER Work Phone: [facility] 02-28-2024 08:35-0400 SaO2% (BldA) [Mass fraction] 97 % Sam Erin STRATEGIC CLIENT EXECUTIVE.PUTTY REMOVER Work Phone: [facility] 02-28-2024 08:35-0400 Systolic blood pressure 118 mm[Hg] Sam Erin STRATEGIC CLIENT EXECUTIVE.PUTTY REMOVER Work Phone: [facility] 02-16-2024 18:49-0400 Body mass index (BMI) [Ratio] 20.76 kg/m2 Krislyn Aberegg PA Work Phone: [facility] 02-16-2024 18:49-0400 Body temperature 98.2 [degF] Krislyn Aberegg PA Work Phone: [facility] 02-16-2024 18:49-0400 Body weight 56.6 kg Krislyn Aberegg PA Work Phone: [facility] 02-16-2024 18:49-0400 Diastolic blood pressure 73 mm[Hg] Krislyn Aberegg PA Work Phone: [facility] 02-16-2024 18:49-0400 Heart rate 85 /min Krislyn Aberegg PA Work Phone: [facility] 02-16-2024 18:49-0400 Respiratory rate 18 /min Krislyn Aberegg PA Work Phone: [facility] 02-16-2024 18:49-0400 SaO2% (BldA) [Mass fraction] 100 % Krislyn Aberegg PA Work Phone: [facility] 02-16-2024 18:49-0400 Systolic blood pressure 113 mm[Hg] Krislyn Aberegg PA Work Phone: [facility] 02-10-2024 17:05-0400 Diastolic Blood Pressure Non-Invasive 87 mm[Hg] JUAN MIGUEL MANLEY MD [facility] 02-10-2024 17:05-0400 Heart rate 95 /min JUAN MIGUEL MANLEY MD [facility] 02-10-2024 17:05-0400 Respiratory rate 16 /min JUAN MIGUEL MANLEY MD [facility] 02-10-2024 17:05-0400 Systolic Blood Pressure Non-Invasive 123 mm[Hg] JUAN MIGUEL MANLEY MD [facility] 02-10-2024 15:40-0400 Body temperature 97.16 [degF] JUAN MIGUEL MANLEY MD [facility] 02-10-2024 15:40-0400 Body weight 54.3 kg JUAN MIGUEL MANLEY MD [facility] 02-10-2024 15:40-0400 Diastolic Blood Pressure Non-Invasive 60 mm[Hg] JUAN MIGUEL MANLEY MD [facility] 02-10-2024 15:40-0400 Heart rate 111 /min JUAN MIGUEL MANLEY MD [facility] 02-10-2024 15:40-0400 Respiratory rate 18 /min JUAN MIGUEL MANLEY MD [facility] 02-10-2024 15:40-0400 Systolic Blood Pressure Non-Invasive 98 mm[Hg] JUAN MIGUEL MANLEY MD [facility] 02-07-2024 15:03-0400 Body height 165.1 cm Louis Valencia MD Work Phone: [facility] 02-07-2024 15:03-0400 Body mass index (BMI) [Ratio] 20.8 kg/m2 Louis Valencia MD Work Phone: [facility] 02-07-2024 15:03-0400 Body weight 56.7 kg Louis Valencia MD Work Phone: [facility] 02-07-2024 15:03-0400 Respiratory rate 16 /min Louis Valencia MD Work Phone: [facility] 01-25-2024 14:44-0400 Body mass index (BMI) [Ratio] 20.8 kg/m2 Sam Erin STRATEGIC CLIENT EXECUTIVE.PUTTY REMOVER Work Phone: [facility] 01-25-2024 14:44-0400 Body weight 56.7 kg Sam Erin STRATEGIC CLIENT EXECUTIVE.PUTTY REMOVER Work Phone: [facility] 01-25-2024 14:44-0400 Diastolic blood pressure 66 mm[Hg] Sam Erin STRATEGIC CLIENT EXECUTIVE.PUTTY REMOVER Work Phone: [facility] 01-25-2024 14:44-0400 Heart rate 96 /min Sam Erin STRATEGIC CLIENT EXECUTIVE.PUTTY REMOVER Work Phone: [facility] 01-25-2024 14:44-0400 Respiratory rate 16 /min Sam Erin STRATEGIC CLIENT EXECUTIVE.PUTTY REMOVER Work Phone: [facility] 01-25-2024 14:44-0400 Systolic blood pressure 102 mm[Hg] Sam Erin STRATEGIC CLIENT EXECUTIVE.PUTTY REMOVER Work Phone: [facility] 01-11-2024 13:33-0400 Body mass index (BMI) [Ratio] 20.7 kg/m2 Sam Erin STRATEGIC CLIENT EXECUTIVE.PUTTY REMOVER Work Phone: [facility] 01-11-2024 13:33-0400 Body weight 56.43 kg Sam Erin STRATEGIC CLIENT EXECUTIVE.PUTTY REMOVER Work Phone: [facility] 01-11-2024 13:33-0400 Diastolic blood pressure 62 mm[Hg] Sam Erin STRATEGIC CLIENT EXECUTIVE.PUTTY REMOVER Work Phone: [facility] 01-11-2024 13:33-0400 Heart rate 86 /min Sam Erin STRATEGIC CLIENT EXECUTIVE.PUTTY REMOVER Work Phone: [facility] 01-11-2024 13:33-0400 Respiratory rate 18 /min Sam Erin STRATEGIC CLIENT EXECUTIVE.PUTTY REMOVER Work Phone: [facility] 01-11-2024 13:33-0400 SaO2%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 05-12-2023 End: 05-12-2023 Office outpatient new 45 minutes Charles Elliott APRN.CNP Work Phone: [facility] Comment on above: Chronic right should er pain (Primary Dx); Labral tear of shoulder, degenerative, right Start: 05-12-2023 End: 05-12-2023 ambulatory [facility] Facility:[facility] Start: 05-04-2023 Telephone encounter Rick solo MD Work Phone: [facility] [place] Comment on above: Results Start: 05-02-2023 Telephone encounter Keith Diaz PA-C Work Phone: [facility] Start: 04-30-2023 End: 04-30-2023 Patient encounter procedure Rick Queen MD Work Phone: [facility] [place] Comment on above: Tachycardia (Primary Dx); Encounter for immunization; Need for influenza vaccination; Need for vaccination; Anxiety; Tobacco use disorder; Screening for cervical cancer Dysuria (Primary Dx) Start: 04-25-2023 End: 04-25-2023 Patient encounter procedure Sam Khan APRN.PUTTY REMOVER Work Phone: [facility] [place] Comment on above: Acute cystitis with hematuria (Primary Dx); Tear of right glenoid labrum, subsequent encounter; Chronic right shoulder pain Start: 04-25-2023 Telephone encounter Maile acuna MD Work Phone: [facility] [place] Comment on above: Medication Problem Start: 04-11-2023 E-mail encounter saniya m caregiver [facility] Provider LEYDA ROTH Start: 04-11-2023 Patient encounter procedure [facility] Comment on above: 04/28/2023 appointissac mcneill Start: 03-30-2023 Telephone encounter Oksana Weldon APRN.PUTTY REMOVER Work Phone: [facility] Comment on above: Results Start: 03-30-2023 End: 03-30-2023 Subsequent hospital visit by physician Xr [facility] [place] Work Phone: Radiology Comment on above: Fever, unspecified f ever cause [R50.9] Start: 03-18-2023 Refill Maile escobar MD Work Phone: [facility] [place] Comment on above: Refill Request Start: 03-15-2023 End: 03-15-2023 Emergency department patient visit DR LAVONNE WEAVER MD [facility] Start: 03-14-2023 ambulatory Sam Khan APRN.PUTTY REMOVER Work Phone: [facility] [place] Comment on above: MRI Start: 03-14-2023 E-mail encounter fro m caregiver Sam Khan APRN.PUTTY REMOVER Work Phone: [facility] [place] Start: 03-11-2023 End: 03-11-2023 Subsequent hospital visit by physician Mri Radio [facility] (I-Stat/1.5t) Work Phone: Radiology Comment on above: Tear of right glenoi d labrum, subsequent encounter [S43.431D] Start: 03-07-2023 Refill Maile escobar MD Work Phone: [facility] [place] Comment on above: Refill Request Start: 03-04-2023 Telephone encounter Sam schulz APRN.PUTTY REMOVER Work Phone: [facility] [place] Comment on above: Orders Start: 02-15-2023 ambulatory No Pcp RIGOBERTO [facility] Start: 02-09-2023 ambulatory Maile escobar MD Work Phone: [facility] Start: 02-08-2023 End: 02-08-2023 Patient encounter procedure Sam Khan APRN.PUTTY REMOVER Work Phone: [facility] [place] Comment on above: Tear of right glenoi d labrum, subsequent encounter (Primary Dx); Chronic right shoulder pain Start: 01-25-2023 End: 01-25-2023 Emergency department patient visit JUAN MIGUEL MANLEY MD [facility] Start: 01-10-2023 End: 01-10-2023 Office outpatient visit 25 minutes Maile Norman MD Work Phone: [facility] [place] Comment on above: Panic attacks Start: 01-10-2023 ambulatory Maile escobar MD Work Phone: [facility] [place] Comment on above: Anxiety Start: 12-06-2022 Telephone encounter Gayla mora APRN.PUTTY REMOVER Work Phone: [facility] [place] Comment on above: Results Start: 12-01-2022 Telephone encounter Maile acuna MD Work Phone: [facility] [place] Comment on above: Appointment Request Start: 12-01-2022 End: 12-01-2022 Subsequent hospital visit by physician Xr [facility] [place] Work Phone: Radiology Comment on above: Coccydynia [M53.3] Start: 12-01-2022 End: 12-01-2022 Patient encounter procedure Gayla Ayala APRN.PUTTY REMOVER Work Phone: Family [facility] [place] Comment on above: Coccydynia (Primary Dx) Start: 09-17-2022 Telephone encounter Maile acuna MD Work Phone: [facility] [place] Comment on above: Anxiety Start: 09-09-2022 End: 09-09-2022 Patient encounter procedure Pennie Clemente APRN.PUTTY REMOVER Work Phone: [facility] Comment on above: Viral URI with cough (Primary Dx) Start: 09-08-2022 Telephone encounter Maile acuna MD Work Phone: [facility] [place] Comment on above: Patient Update Start: 08-03-2022 Telephone encounter Maile acuna MD Work Phone: [facility] [place] Comment on above: Medication Request Start: 07-18-2022 End: 07-18-2022 Patient encounter procedure Kimberly Rodriguez APRN.PUTTY REMOVER Work Phone: [facility] Comment on above: Sore throat [...] Phone: [facility] [place] Comment on above: Results Start: 05-10-2022 Telephone encounter Maile acuna MD Work Phone: [facility] [place] Comment on above: Appointment Start: 05-07-2022 End: 05-07-2022 Patient encounter procedure Karen Gaspar APRN.RECORDING ENGINEER Work Phone: [facility] [place] Comment on above: Insomnia, unspecifie d type (Primary Dx); Encounter for immunization; Screening for cervical cancer; Breast pain; Mass of lower inner quadrant of right breast; Chronic right shoulder pain; Encounter for well woman exam with routine gynecological exam Start: 04-20-2022 Refill Karen Gaspar APRN.RECORDING ENGINEER Work Phone: [facility] [place] Comment on above: Refill Request Start: 04-12-2022 [facility] Start: 03-16-2022 End: 03-16-2022 Subsequent hospital visit by physician Xr [facility] [place] Work Phone: Radiology Comment on above: Splinter of finger [ S60.454C] Start: 03-16-2022 End: 03-16-2022 Patient encounter procedure Pennie Clemente APRN.PUTTY REMOVER Work Phone: [facility] Comment on above: Splinter of finger ( Primary Dx) Start: 03-05-2022 Refill Maile escobar MD Work Phone: [facility] [place] Comment on above: Refill Request Start: 03-03-2022 ambulatory Maile escobar MD Work Phone: [facility] [place] Start: 01-20-2022 End: 01-20-2022 Patient encounter procedure Galo Bernal STRATEGIC CLIENT EXECUTIVE.PUTTY REMOVER Work Phone: [facility] Comment on above: Viral illness (Prima ry Dx) Start: 01-05-2022 End: 01-05-2022 Patient encounter procedure Galo Bernal STRATEGIC CLIENT EXECUTIVE.PUTTY REMOVER Work Phone: [facility] Comment on above: Procedure not billy d out (Primary Dx) Start: 12-18-2021 Telephone encounter Maile acuna MD Work Phone: [facility] [place] Comment on above: ABO Blood Type Start: 07-18-2021 End: 07-18-2021 Emergency department patient visit Boubacar Ferrell MD Work Phone: [facility] Comment on above: Jaw pain (Primary Dx ); History of tooth extraction, unspecified edentulism class Start: 03-09-2021 End: 03-09-2021 Subsequent hospital visit by physician Heather [facility] [place] Work Phone: Radiology Comment on above: [...] Radex hand minimum 3 views Galo butt STRATEGIC CLIENT EXECUTIVE.PUTTY REMOVER Work Phone: Start: 05-10-2024 Radex forearm 2 views Karen Gaspar STRATEGIC CLIENT EXECUTIVE.RECORDING ENGINEER Work Phone: Start: 03-07-2024 Radiologic exam chest 2 views Sam Khan STRATEGIC CLIENT EXECUTIVE.PUTTY REMOVER Work Phone: Start: 02-07-2024 Arthrocentesis aspir&/inj major jt/bursa w/o us Louis Valencia MD Work Phone: Start: 08-11-2023 Radiologic exam chest 2 views Pennie Clemente STRATEGIC CLIENT EXECUTIVE.PUTTY REMOVER Work Phone: Start: 08-11-2023 STREP A MOLECULAR (POC) [facility] Provider Start: 08-01-2023 INFLUENZA A&B MOLECULAR (POC) Chris NASH Work Phone: Start: 04-30-2023 INFLUENZA VACCINE, AGE 6 MO - 64 YR, QUADRIVALENT (AFLURIA, FLULAVAL, FLUZONE) Rick Queen MD Work Phone: Start: 04-30-2023 Urnls dip stick/tablet rgnt auto w/o microscopy Anny Older STRATEGIC CLIENT EXECUTIVE.PUTTY REMOVER Work Phone: Start: 04-25-2023 Urnls dip stick/tablet rgnt auto w/o microscopy Sam Verduzcor STRATEGIC CLIENT EXECUTIVE.PUTTY REMOVER Work Phone: Start: 03-30-2023 Radiologic exam chest 2 views Oksana Weldon STRATEGIC CLIENT EXECUTIVE.PUTTY REMOVER Work Phone: Start: 03-11-2023 Mri any jt upper extremity w/o & w/contr matrl Sam Khan STRATEGIC CLIENT EXECUTIVE.PUTTY REMOVER Work Phone: Start: 12-01-2022 Radex sacrum & coccyx minimum 2 views Gayla Podlogaretha STRATEGIC CLIENT EXECUTIVE.PUTTY REMOVER Work Phone: Start: 07-18-2022 STREP A MOLECULAR (POC) Kimberly Rodriguez STRATEGIC CLIENT EXECUTIVE.PUTTY REMOVER Work Phone: Start: 03-16-2022 Radex fingr minimum 2 views Pennie Austin STRATEGIC CLIENT EXECUTIVE.PUTTY REMOVER Work Phone: Start: 07-18-2021 End: 07-18-2021 Ct head/brain w/o contrast material Boubacar Ferrell MD Work Phone: Start: 07-18-2021 Basic metabolic panel calcium total Boubacar Marcos Ferrell MD Work Phone: Start: 03-09-2021 Radiologic exam chest 2 views Yodit Saxena STRATEGIC CLIENT EXECUTIVE.PUTTY REMOVER Work Phone: Adenoid excision JUAN MIGUEL VALERIO [...] cuff of shoulder S/P rotator cuff repair tSuart Haynes MD Work Phone: History of repair [...] DTaP,Tdap,Td Vaccine (3 - Td or Tdap) [facility] Start: 03-15-2032 Urine microalbumin profile [facility] Start: 07-09-2029 Screening for malign ant neoplasm of cervix Cervical Cancer Screening [facility] Start: 09-21-2025 Annual PCP Team Bodywork Therapist [place] Disease Visit Annual PCP Team Chronic Disease Visit [facility] Start: 07-31-2025 Annual PCP Team Bodywork Therapist [place] [facility] Visit Annual PCP Team Chronic Disease Visit [facility] Start: 07-31-2025 Hepatitis B Vaccine (2 of 3 - Hep B Twinrix 3-dose series) Hepatitis B Vaccine (2 of 3 - Hep B Twinrix 3-dose series) [facility] Comment on above: Postponed from 05/19 (Declined at this time) Start: 07-11-2025 Annual PCP Team Bodywork Therapist [place] Disease Visit Annual PCP Team Chronic Disease Visit [facility] Start: 05-15-2025 Annual PCP Team Bodywork Therapist [place] Disease Visit Annual PCP Team Chronic Disease Visit [facility] Start: 04-25-2025 Annual PCP Team Bodywork Therapist [place] Disease Visit Annual PCP Team Chronic Disease Visit [facility] Start: 03-28-2025 Annual PCP Team Bodywork Therapist [place] Disease Visit Annual PCP Team Chronic Disease Visit [facility] Start: 03-28-2025 Covid-19 Vaccine ( season) Covid-19 Vaccine ( season) [facility] Comment on above: Postponed from 02/25 (Declined at this time) Start: 02-27-2025 Annual PCP Team Bodywork Therapist [place] [facility] Visit Annual PCP Team Chronic Disease Visit [facility] Start: 02-25-2025 Influenza vaccination Influenz a Vaccine (Season Ended) [facility] Start: 02-04-2025 End: 02-04-2025 Patient encounter procedure 02/04/2025 4:40 PM EDT Office Visit [facility] [place] [address] [facility] [place] [address] Maile Norman MD [address] [place] [address] 3 month follow up [facility] [place] Comment on above: 3 month follow up Start: 01-24-2025 Annual PCP Team Bodywork Therapist [place] Disease Visit Annual PCP Team Chronic Disease Visit [facility] Start: 01-10-2025 Annual PCP Team Bodywork Therapist [place] Disease Visit Annual PCP Team Chronic Disease Visit [facility] Start: 01-04-2025 End: 01-04-2025 Patient encounter procedure 01/04/2025 1:15 PM EDT Office Visit Orthopedics [address] [facility] [address] [place] [address] Louis Valencia MD [address] [facility]. [facility] [address] [place] [address] right shoulder Orthopedics Comment on above: right shoulder Start: 01-03-2025 End: 01-03-2025 Patient encounter procedure 01/03/2025 8:30 AM EDT Office Visit [facility] [address] [place] [address] Charles Elliott APRN.[facility] [address] [place] [address] S/P shoulder surgery [Z98.890]; Traumatic tear of right rotator cuff, unspecified tear extent, subsequent encounter [S46.011D]; Acute pain of right shoulder [M25.511] [facility] Comment on above: S/P shoulder surgery [Z98.890]; Traumatic tear of right rotator cuff, unspecified tear extent, subsequent encounter [S46.011D]; Acute pain of right shoulder [M25.511] Start: 12-24-2024 Influenza vaccination Influenza Vacc ine (#1) [facility] Comment on above: Postponed from 02/25 (Declined at this time) Start: 12-24-2024 End: 12-24-2024 ambulatory 12/24/2024 10:45 AM EDT OT/PT/Speech Visit [facility] [address] [place] [address] Kofi Gannon, PT Z98.890 (ICD-10-CM) - S/P right rotator cuff repair [facility] Comment on above: Z98.890 (ICD-10-CM) - S/P right rotator cuff repair Start: 12-19-2024 Annual PCP Team Bodywork Therapist [place] Disease Visit Annual PCP Team Chronic Disease Visit [facility] Start: 12-17-2024 End: 12-17-2024 ambulatory 12/17/2024 10:15 AM EDT OT/PT/Speech Visit [facility] [address] [place] [address] Claire Harrington, [employer] SERVICE TECHNICIAN [address] [place] [address] Z98.890 (ICD-10-CM) - S/P right rotator cuff repair [facility] Comment on above: Z98.890 (ICD-10-CM) - S/P right rotator cuff repair Start: 12-10-2024 End: 12-10-2024 ambulatory 12/10/2024 9:45 AM EDT OT/PT/Speech Visit [facility] [address] [place] [address] Kofi Gannon, PT Z98.890 (ICD-10-CM) - S/P right rotator cuff repair [facility] Comment on above: Z98.890 (ICD-10-CM) - S/P right rotator cuff repair Start: 12-03-2024 End: 12-03-2024 ambulatory 12/03/2024 9:30 AM EDT OT/PT/Speech Visit [facility] [address] [place] [address] Claire Harrington, [employer] SERVICE TECHNICIAN [address] [place] [address] Z98.890 (ICD-10-CM) - S/P right rotator cuff repair [facility] Comment on above: Z98.890 (ICD-10-CM) - S/P right rotator cuff repair Start: 11-30-2024 End: 11-30-2024 Patient encounter procedure 11/30/2024 8:00 AM EDT Office Visit [facility] [place] [address] [facility] [place] [address] Sam Khan APRN.PUTTY REMOVER [address] [place] [address] 2 wk follow up [facility] [place] Comment on above: 2 wk follow up Start: 11-28-2024 End: 11-28-2024 Patient encounter procedure 11/28/2024 11:40 AM EDT Office Visit [facility] [place] [address] [facility] [place] [address] Sam Khan APRN.PUTTY REMOVER [address] [facility] [address] 2 wk follow up [facility] [place] Comment on above: 2 wk follow up Start: 11-26-2024 End: 11-26-2024 ambulatory 11/26/2024 9:00 AM EDT OT/PT/Speech Visit [facility] [address] [place] [address] Kofi Gannon, PT Post Op PT [facility] Comment on above: Post Op PT Start: 11-23-2024 End: 11-23-2024 Patient encounter procedure 11/23/2024 2:15 PM EDT Office Visit Orthopedics [address] [facility] [address] [place] [phone] Louis Valencia MD [address] [facility] [address] [place] [address] S/P Right shoulder Dx arthroscopy 10-12-2024 Orthopedics Comment on above: S/P Right shoulder D x arthroscopy 10-12-2024 Start: 11-14-2024 End: 11-14-2024 ambulatory 11/14/2024 9:00 AM EDT OT/PT/Speech Visit [facility] [address] [place] [address] Jono Gallego, PT [address] [place] [address] Post Op PT [facility] Comment on above: Post Op PT Start: 11-10-2024 Annual PCP Team Bodywork Therapist [place] [facility] Visit Annual PCP Team Chronic Disease Visit [facility] Start: 11-02-2024 End: 11-02-2024 Patient encounter procedure [facility] [place] Comment on above: 3 month follow up Start: 10-26-2024 End: 10-26-2024 Patient encounter procedure 10/26/2024 3:00 PM EDT Office Visit Orthopedics [address] [facility] [address] [place] [phone] Louis Valencia MD [address] [facility]. [facility] [address] [place] [address] S/P Right shoulder Dx arthroscopy 10-12-2024 Orthopedics Comment on above: S/P Right shoulder D x arthroscopy 10-12-2024 Start: 10-19-2024 End: 10-19-2024 ambulatory 10/19/2024 9:30 AM EDT OT/PT/Speech Visit [facility] [address] [place] [address] Jono Gallego, PT [address] [place] [address] Post Op PT [facility] Comment on above: Post Op PT Start: 10-19-2024 End: 10-19-2024 Patient encounter procedure 10/19/2024 9:20 AM EDT Office Visit [facility] [place] [address] [facility] [place] [address] Maile Norman MD [address] [place] [address] Pain management after surgery. 2nd rotator cuff surgery. [facility] [place] Comment on above: Pain management afte r surgery. 2nd rotator cuff surgery. Start: 10-13-2024 Annual PCP Team Bodywork Therapist [place] Disease Visit Annual PCP Team Chronic Disease Visit [facility] Start: 10-12-2024 End: 10-12-2024 Admission to same day surgery center 10/12/2024 10:50 AM EDT - 10/12/2024 12:31 PM EDT Surgery [facility] Surgery [address] [place] [address] Louis Valencia MD [address] [place] [address] ARTHROSCOPY SHOULDER [facility] Comment on above: ARTHROSCOPY SHOULDER Start: 10-12-2024 End: 10-12-2024 Arthroscopy shoulder dx w/wo synovial biopsy spx ARTHROSCOPY SHOULDER S/P right rotator cuff repair Right shoulder pain, unspecified chronicity 10/12/2024 10:50 AM EDT ME OR Start: 10-12-2024 Subsequent hospital visit by physician 10/12/2024 10:50 AM EDT Hospital Encounter [facility] Surgery [address] [place] [address] Louis Valencia MD [address] [place] [address] S/P right rotator cuff repair [Z98.890], Right shoulder pain, unspecified chronicity [M25.511] [facility] Comment on above: S/P right rotator cu ff repair [Z98.890], Right shoulder pain, unspecified chronicity [M25.511] Start: 09-28-2024 End: 09-28-2024 Anesthesia consultation 09/28/2024 9:20 AM EDT PAT Pre Anesthesia [address] [place] [address] 1, [facility] [place] [address] [place] [address] 10/12 DECLINED VV ARTHROSCOPY SHOULDER [1111] - Shoulder - Right Pre Anesthesia Comment on above: 10/12 DECLINED VV ART HROSCOPY SHOULDER [1111] - Shoulder - Right Start: 09-26-2024 Annual PCP Team Bodywork Therapist [place] Disease Visit Annual PCP Team Chronic Disease Visit [facility] Start: 09-14-2024 End: 09-14-2024 Patient encounter procedure 09/14/2024 1:45 PM EDT Office Visit Orthopedics [address] [place] [phone] Louis Valencia MD [address] [facility] [address] [place], [place] [phone] 6 week follow up Orthopedics Comment on above: 6 week follow up Start: 09-08-2024 Annual PCP Team Bodywork Therapist [place] Disease Visit Annual PCP Team Chronic Disease Visit [facility] Start: 09-08-2024 Covid-19 Vaccine () Covid-19 Vaccine () [facility] Comment on above: Postponed from 02/25 (Declined at this time) Start: 08-05-2024 Annual PCP Team Bodywork Therapist [place] Disease Visit Annual PCP Team Chronic Disease Visit [facility] Start: 07-31-2024 End: 07-31-2024 Patient encounter procedure 07/31/2024 10:00 AM EST Office Visit [facility] [place] [address] [place] [address] Maile Norman MD [address] [place] [address] 3 month follow up [facility] [place] Comment on above: 3 month follow up Start: 07-27-2024 End: 07-27-2024 Patient encounter procedure 07/27/2024 2:15 PM EST Office Visit Orthopedics [address] [place] [phone] Louis Valencia MD [address] [facility] [address] [place], [place] [phone] injection, MRI results Orthopedics Comment on above: injection, MRI resul ts Start: 07-13-2024 End: 10-12-2024 Comprehensive metabolic 2000 panel - Serum or Plasma [facility] Work Phone: Comment on above: Expected: 07/13/2024 , Expires: 10/12/2024 Start: 07-09-2024 End: 10-08-2024 Estradiol (E2) [Mass/volume] in Serum or Plasma ESTRADIOL-17B BLD Lab Routine Menopausal symptoms Expected: 07/09/2024, Expires: 10/08/2024 [facility] Comment on above: Expected: 07/09/2024 , Expires: 10/08/2024 Start: 07-09-2024 End: 10-08-2024 Follitropin [Units/volume] in Serum or Plasma FOLLICLE STIMULATING HORMONE Lab Routine Menopausal symptoms Expected: 07/09/2024, Expires: 10/08/2024 [facility] Comment on above: Expected: 07/09/2024 , Expires: 10/08/2024 Start: 07-09-2024 End: 07-09-2024 Patient encounter procedure 07/09/2024 9:50 AM EST Appointment Mammogram [address] [place] [address] [facility]ON SCREENING W [facility] Mammogram Comment on above: [facility]ON SCREENING W [facility] Start: 07-09-2024 End: 07-09-2024 Patient encounter procedure 07/09/2024 7:30 AM EST Office Visit OB/Gynecology [address] [place] [address] Cecile Herndon APRN.PUTTY REMOVER [address] [place] [address] Annual, Pap, Interested in pre menopause info OB/Gynecology Comment on above: Annual, Pap, Interes hira in pre menopause info Start: 06-19-2024 End: 06-19-2024 Patient encounter procedure 06/19/2024 7:30 AM EST Appointment Radiology [address] [place] [address] S/P right rotator cuff repair [Z98.890] Radiology Comment on above: S/P right rotator cu ff repair [Z98.890] Start: 06-06-2024 End: 06-06-2024 Patient encounter procedure 06/06/2024 8:30 AM EST Office Visit General Surgery [address] [address] John Maher MD [address] [place], [place] [address] Dx: Injury of left upper extremity, subsequent encounter [S49.92XD (ICD-10-CM)]; Mass of left upper extremity [R22.32 (ICD-10-CM)] General Surgery Comment on above: Dx: Injury of left u pper extremity, subsequent encounter [S49.92XD (ICD-10-CM)]; Mass of left upper extremity [R22.32 (ICD-10-CM)] Start: 05-21-2024 End: 05-21-2024 Patient encounter procedure 05/21/2024 9:40 AM EST Office Visit [facility] [address] [place], [place] [phone] Anny Carter STRATEGIC CLIENT EXECUTIVE.PUTTY REMOVER [address] [place], [place] [id number] follow-up - blister on right hand [facility] Comment on above: follow-up - blister on right hand Start: 05-11-2024 End: 08-10-2024 Herpes simplex virus+Varicella zoster virus DNA [Presence] in Unspecified specimen by MARY KAY with probe detection HSV1,2/VZV NAAT LESION Lab Routine Rash Expected: 05/11/2024, Expires: 08/10/2024 [facility] Work Phone: Comment on above: Expected: 05/11/2024 , Expires: 08/10/2024 Start: 04-25-2024 End: 04-25-2024 Patient encounter procedure 04/25/2024 1:00 PM EDT Office Visit [facility] [address] [place], [place] [id number] Sam Khan STRATEGIC CLIENT EXECUTIVE.PUTTY REMOVER [address] [place], [place] [phone] 4 week follow up post suture removel left arm [facility] Comment on above: 4 week follow up pos t suture removel left arm Start: 02-28-2024 End: 05-29-2024 CBC W Auto Differential panel - Blood [facility] Work Phone: Comment on above: Expected: 02/28/2024 , Expires: 05/29/2024 Start: 02-28-2024 End: 05-29-2024 Comprehensive metabolic 2000 panel - Serum or Plasma [facility] Comment on above: Expected: 02/28/2024 , Expires: 05/29/2024 Start: 02-28-2024 End: 05-29-2024 Hepatitis C virus Ab [Presence] in Serum [facility] Comment on above: Expected: 02/28/2024 , Expires: 05/29/2024 Start: 02-28-2024 End: 05-29-2024 HIV 1+2 Ab [Presence] in Serum or Plasma by Immunoassay [facility] Comment on above: Expected: 02/28/2024 , Expires: 05/29/2024 Start: 02-26-2024 Covid-19 Vaccine ( season) Covid-19 Vaccine ( season) [facility] Start: 02-26-2024 Covid-19 Vaccine ( season) Covid-19 Vaccine ( season) [facility] Start: 02-26-2024 Influenza vaccination Influenza Vacc ine (#1) [facility] Start: 02-07-2024 End: 02-07-2024 Patient encounter procedure 02/07/2024 3:15 PM EDT Office Visit [facility] [address] [place], [place] [id number] Louis Valencia MD [address] [place] [address] est pt post op left shoulder [facility] Comment on above: est pt post op left shoulder Start: 01-25-2024 End: 01-25-2024 Patient encounter procedure 01/25/2024 3:00 PM EDT Office Visit [facility] [address] [place] [address] Sam Khan APRN.PUTTY REMOVER [address] [place] [phone] 2 wk follow up [facility] Comment on above: 2 wk follow up Start: 01-11-2024 COVID-19 VACCINE (#1) COVID-19 VACCI NE (#1) [facility] Comment on above: Postponed from 07/25 (Declined at this time) Start: 01-10-2024 End: 01-10-2024 Patient encounter procedure 01/10/2024 8:40 AM EDT Office Visit [facility] [address] [place], [place] [phone] Sam Khan APRN.PUTTY REMOVER [address] [place] [phone] 3 week medication follow up [facility] Comment on above: 3 week medication fo llow up Start: 12-20-2023 End: 12-20-2023 Patient encounter procedure 12/20/2023 8:00 AM EDT Office Visit [facility] [address] [place] [address] Sam Khan APRN.PUTTY REMOVER [address] [place] [phone] med check [facility] Comment on above: med check Start: 12-14-2023 End: 12-14-2023 Patient encounter procedure 12/14/2023 2:40 PM EDT Office Visit [facility] [address] [place], [place] [phone] Sam Khan APRN.PUTTY REMOVER [address] [place] [phone] Review pain medication [facility] Comment on above: Review pain medicati on Start: 12-14-2023 End: 12-14-2023 ambulatory 12/14/2023 1:30 PM EDT OT/PT/Speech Visit [facility] [address] [place] [address] O'Yodit Robin, PT right shoulder post op [facility] Comment on above: right shoulder post op Start: 12-07-2023 End: 12-07-2023 ambulatory 12/07/2023 12:45 PM EDT OT/PT/Speech Visit [facility] [address] [place] [address] O'LobitoYodit, PT right shoulder post op [facility] Comment on above: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 APRN.CNP [facility] 01-23-2024 Miscellaneous Notes PDMP website checked and validated. All prescriptions have been APPROPRIATELY filled. No suspicious activity was identified. 01/23/2024 by Sam Khan APRN.CNP documented in this encounter [facility] 01-16-2024 Telephone encounter Note PDMP website checked and validated. All prescriptions have been APPROPRIATELY filled. No suspicious activity was identified. 01/16/2024 by Sam Khan APRN.CNP [facility] 01-16-2024 Miscellaneous Notes PDMP website checked and validated. All prescriptions have been APPROPRIATELY filled. No suspicious activity was identified. 01/16/2024 by Sam Khan APRN.CNP documented in this encounter [facility] 01-11-2024 History of Present illness Narrative SUBJECTIVE [...] 01/25/2024). BOO Borrero documented in this encounter [facility] 01-11-2024 Note [facility] 01-09-2024 Telephone encounter Note OARRS reviewed [...] was identified. 01/09/2024 by Sam Khan APRN.CNP [facility] 01-09-2024 Miscellaneous Notes OARRS reviewed and script [...] activity was identified. 01/09/2024 by Sam Khan APRN.LUIS DANIEL documented in this encounter [facility] 01-02-2024 Telephone encounter Note PDMP website checked and validated. All prescriptions have been APPROPRIATELY filled. No suspicious activity was identified. 01/02/2024 by Sam Khan APRN.LUIS DANIEL [facility] 01-02-2024 Miscellaneous Notes PDMP website checked and validated. All prescriptions have been APPROPRIATELY filled. No suspicious activity was identified. 01/02/2024 by Sam Khan APRN.LUIS DANIEL documented in this encounter [facility] 12-27-2023 Telephone encounter Note PDMP website checked and validated. All prescriptions have been APPROPRIATELY filled. No suspicious activity was identified. 12/27/2023 by Sam Khan APRN.CNP [facility] 12-27-2023 Miscellaneous Notes PDMP website checked and validated. All prescriptions have been APPROPRIATELY filled. No suspicious activity was identified. 12/27/2023 by Sam Erin, STRATEGIC CLIENT EXECUTIVE.PUTTY REMOVER documented in this encounter [facility] 12-20-2023 Note Addended by: SAM KHAN on: 12/20/2023 10:23 AM Modules accepted: Orders [facility] 12-20-2023 Miscellaneous Notes Addended by: SAM KHAN on: 12/20/2023 10:23 AM Modules accepted: Orders documented in this encounter [facility] 12-20-2023 Note [facility] 12-20-2023 History of Present illness Narrative [...] (around 01/10/2024) for recheck on new medication.. Sam Khan APRN-LUIS DANIEL documented in this encounter [facility] 12-14-2023 Telephone encounter Note PDMP website checked and validated. All prescriptions have been APPROPRIATELY filled. No suspicious activity was identified. 12/14/2023 by Sam Khan APRN.CNP [facility] 12-14-2023 Miscellaneous Notes PDMP website checked and validated. All prescriptions have been APPROPRIATELY filled. No suspicious activity was identified. 12/14/2023 by Sam Khan APRN.CNP Prescription Refill Information The patient has been [...] had to change today's appt to next Tues- reports her lost his job and she cannot afford to miss work today. Requested Prescriptions Pending Prescriptions Disp Refills oxyCODONE-acetaminophen (PERCOCET) 5-325 mg tablet 21 tablet 0 Sig: Take 1 tablet by mouth every 8 hours as needed for pain for up to 7 days. Sharon Sutherland RN December 14, 2023 8:57 AM documented in this encounter [facility] 12-14-2023 Telephone encounter Note Prescription Refill Information [...] had to change today's appt to next Tues- reports her lost his job and she cannot afford to miss work today. Requested Prescriptions Pending Prescriptions Disp Refills oxyCODONE-acetaminophen (PERCOCET) 5-325 mg tablet 21 tablet 0 Sig: Take 1 tablet by mouth every 8 hours as needed for pain for up to 7 days. Sharon Sutherland RN December 14, 2023 8:57 AM [facility] 12-07-2023 Telephone encounter Note PDMP website checked and validated. All prescriptions have been APPROPRIATELY filled. No suspicious activity was identified. 12/07/2023 by Sam Khan APRN.CNP [facility] 12-07-2023 Miscellaneous Notes PDMP website checked and validated. All prescriptions have been APPROPRIATELY filled. No suspicious activity was identified. 12/07/2023 by Sam Khan APRN.LUIS DANIEL documented in this encounter [facility] 12-01-2023 Telephone encounter Note Noted weaning Percocet [...] 7 days. Authorizing Provider: MAILE NORMAN MD [facility] 12-01-2023 Miscellaneous Notes Noted weaning Percocet The [...] patient once addressed. documented in this encounter [facility] 12-01-2023 Telephone encounter Note Patient reports she is weaning off of percocet, decreases the Rx by 7 pills each week. Aware pcp and Sam are out today, and asking if [facility] will send the Rx for 21 pills. Patient ran out of medication yesterday. Pended. Reports Sam sends the Rx every Tue, but Sam is out this week. [facility] 11-30-2023 Telephone encounter Note Patient returned call, given provider message and voiced understanding. States that she also needs her percocet refilled. States that Sam has been filling it one week at a time and she is out today. Asking if this can be filled. Please advise. [facility] 11-29-2023 Telephone encounter Note Called and left a voicemail for the Patient to call back and ask for a nurse to receive the providers message. Otilia Douglas RN [facility] 11-28-2023 Telephone encounter Note Recently saw Sam. [...] 3 days. Authorizing Provider: MAILE NORMAN MD [facility] 11-28-2023 Telephone encounter Note Pat is calling today with complaints of a panic attack that has been going on and off for about 3 days with chest discomfort. She is asking for a short supply of xanax to try and break the cycle. Please call patient once addressed. [facility] 11-23-2023 Telephone encounter Note She continues to [...] was identified. 11/23/2023 by Sam Khan APRN.CNP [facility] 11-23-2023 Miscellaneous Notes She continues to reduce [...] Sam Khan APRN.CNP documented in this encounter [facility] 11-16-2023 Telephone encounter Note PDMP website checked and validated. All prescriptions have been APPROPRIATELY filled. No suspicious activity was identified. 11/16/2023 by Sam Khan APRN.CNP [facility] 11-16-2023 Miscellaneous Notes [facility]. All prescriptions have been APPROPRIATELY filled. No suspicious activity was identified. 11/16/2023 by Sam Khan APRN.PUTTY REMOVER documented in this encounter [facility] 11-11-2023 History of Present illness Narrative SUBJECTIVE [...] medications.. BOO Borrero documented in this encounter [facility] 11-09-2023 Telephone encounter Note She continues to [...] and to never share or sell medication. [facility] 11-09-2023 Miscellaneous Notes She continues to lower [...] or sell medication. documented in this encounter [facility] 11-04-2023 Telephone encounter Note OARRS reviewed and [...] was identified. 11/04/2023 by Sam Khan APRN.CNP [facility] 11-04-2023 Miscellaneous Notes OARRS reviewed and script [...] Sam Khan APRN.CNP documented in this encounter [facility] 10-25-2023 History of Present illness Narrative Program_ID:[id number] Access Code: [email or web address] URL: [email or web address] m/ Date: 10-25-2023 Prepared By: Yodit O'Lobito Program Notes Exercises - Seated Shoulder Flexion [...] 10/17/23 Goals updated on 10/25/2023 through 11/29/23 [place] in home exercise program. -- MET Patient [...] Patient to be seen for Therapeutic exercise (93405), Neuromuscular re-education (89035), Manual therapy (45615), Therapeutic activities (82657), Self-nursing home management (28536), Gait Training (87182) PLAN FOR NEXT VISIT: continue progressing toward [...] 2x each AROM taken. 2: *Access Code: [email or web address] URL: [email or web address] Date: 10/25/2023 Prepared by: Yodit Guillen [...] and function . Patient education as noted. Self-Mcc Management: Skilled Intervention: Skilled judgment in the [...] Yodit Baker PT documented in this encounter [facility] 10-21-2023 Telephone encounter Note OARRS reviewed and [...] identified. 10/21/2023 by Sam Khan APRN.LUIS DANIEL [facility] 10-21-2023 Miscellaneous Notes OARRS reviewed and script [...] Khan APRN.LUIS DANIEL documented in this encounter [facility] 10-14-2023 History of Present illness Narrative SUBJECTIVE [...] unexpected travel plans for care of her afydav-wi-tya and will need to refill her percocet [...] 132/70 Pulse 107 Resp 12 Ht 5' 5" (1.65m) Wt 123 lb (55.8kg) SpO2 97% [...] medications.. BOO Borrero documented in this encounter [facility] 10-11-2023 Note HNO ID: [id number] Author: LOUIS VALENCIA MD Service: ? Author [...] improving. Resp 20 Ht 165.1 cm (5' 5") Wt 55.8 kg (123 lb) LMP 05/07/2009 [...] AND Elbow Surgeon Department of Orthopaedic Surgery [facility] Medical Decision Making: Medical Decision Making Level: 1 - N/A [facility] 10-11-2023 History of Present illness Narrative Images [...] improving. Resp 20 Ht 165.1 cm (5' 5") Wt 55.8 kg (123 lb) LMP 05/07/2009 [...] & Elbow Surgeon Department of Orthopaedic Surgery [facility] Medical Decision Making: Medical Decision Making Level: 1 - N/A documented in this encounter [facility] 10-10-2023 History of Present illness Narrative Program_ID:[id number] Access Code: [email or web address] URL: [email or web address] m/ Date: 10-10-2023 Prepared By: Yodit Baker [...] UMA Malhotra PT documented in this encounter [facility] 10-03-2023 Miscellaneous Notes Spoke with pt and information listed below given. Pt verbalizes understanding. Amber Minaya LPN Reviewed progress note from recent OV with Sam. Has follow up with PT and ortho. Also has follow up this month with Sam. Okay 1 week RX as ordered before 09/26 to potato picker 10/03 The following approved medication requests [...] Tre Perez MA. documented in this encounter [facility] 10-03-2023 History of Present illness Narrative Episode [...] a follow up with Dr. Valencia on [facility] 10/06/23. Pt wearing abduction sling today, trying [...] UMA Malhotra PT documented in this encounter [facility] 09-27-2023 History of Present illness Narrative Images [...] follow up, seen in the ER at [facility] yesterday 09/25. A few days prior she had been cleaning her house in preparation for celebrating [facility]. She was felling very good given her [...] OXYCODONE-ACETAMINOPHEN 5 MG-325 MG TABLET Sam Khan APRN.PUTTY REMOVER Portions of this note have been entered [...] Khan APRN-LUIS DANIEL documented in this encounter [facility] 09-27-2023 Hospital Discharge instructions Patient Education 09/26/2023 [...] shoulder or upper arm Fever or chills [phone] The Mr. Number. [address] [place] [address]. All rights reserved. This information is not intended as a substitute for professional medical care. Always follow your healthcare professional's instructions. Follow Up Care 09/26/2023 19:29:15 With:Follow-up with your orthopedic surgeon as soon as possible. Address:Unknown When:2-4 days With:MAILE NORMAN Address: [address] [place] [address] [facility] (1) When:2-4 days Comments:Return to ED if symptoms worsen [facility] 09-26-2023 Emergency department Discharge summary Discharge Instructions Thank you for allowing [facility] to assist you with your healthcare needs. [...] Return to ED if symptoms worsen Where: [address] [place] [phone] [facility] (1) Allergies LaMICtal Pamprin Maximum Pain codeine [...] shoulder or upper arm Fever or chills [phone] The Mr. Number. [address] [place] [address]. All rights reserved. This information is not intended as a substitute for professional medical care. Always follow your healthcare professional's instructions. Additional Information VACCINATE! IT SAVES LIVES! Members of the community who have not yet received the COVID-19 vaccine and would like to receive it can visit one of [facility] vaccine clinics. There are many vaccine clinic locations within the [facility]. For locations and available times, please visit [email or web address] It is important to note that some COVID mobile vaccine clinics are held outdoors and may be canceled in rainy or stormy conditions. To learn more about pediatric vaccinations (ages 5-11), we invite you to visit the [facility] webpage. [email or web address] -[email or web address] To learn more about the COVID-19 vaccine, we invite you to visit the CDC website for a list of frequently asked questions. https://www.cdc.gov/coronavirus/2019-n cov/vaccines/faq.html [facility] Patient Portal Access Instructions: Stay connected with your healthcare team and access your personal medical information anytime with the [facility] Patient Portal. If you would like a full copy of your medical records please contact the [facility] Medical Records Department Tuesday through Tuesday between 8a.m. and 4:30p.m. Please follow the directions below to access the portal: 1.Access the email account you provided upon registration to the [facility].2.Look for an invitation email from [facility].3.Open the email and access the invitation link: Accept Invitation to [facility]4.Fill in the required moore to create your account. Sign into www.[employer] with your username and password that you [...] you will allow to register on the [facility] Patient Portal for access to your information. You can also access the [facility] Patient Portal on the [employer] Simply click on "Health Records" under "Health Data" and then click on the Cl[employer] logo. HOW TO SAFELY DISPOSE OF PRESCRIPTION [...] Call your local pharmacy or go to [email or web address] to find one close to you.3.Make use of household items: Use cat litter or old coffee grounds to dispose medications if other options are not available. Mix your drugs with these household products, seal them in an airtight container and throw it into the garbage. Call [facility]: [phone] to be sure your drugs can be [...] aware that I should contact my doctor. 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 09-26-2023 Note ORIGINAL EXAMINATION: TWO XRAY [...] Date: 09/26/2023 9:41:45 PM Ordering Provider: TU DE ANDA [facility] 09-19-2023 History of Present illness Narrative Episode [...] : 1100 Session Stop Time : 1141 UMA Malhotra, PT documented in this encounter [facility] 09-15-2023 Miscellaneous Notes Sent to provider with medication request. documented in this encounter [facility] 09-15-2023 Miscellaneous Notes Per Pt MyChart message from 09/14/23,"I had my post off appointment yesterday. I [...] need my refill until Tuesday morning thank you.". Patient has been identified by name and [...] Otilia Douglas RN. documented in this encounter [facility] 09-13-2023 Note HNO ID: [id number] Author: LOUIS VALENCIA MD Service: ? Author [...] injuries. Resp 18 Ht 165.1 cm (5' 5") Wt 57.2 kg (126 lb) LMP 05/07/2009 [...] AND Elbow Surgeon Department of Orthopaedic Surgery [facility] Medical Decision Making: Medical Decision Making Level: 1 - N/A [facility] 09-13-2023 History of Present illness Narrative PAIN EVALUATION 09/13/2023 1330 Pain Level: 7 Pain Location: Shoulder-Right Description: Aching;Burning;Stabbing Frequency: Continuous Pat Knight presents today for: First post-surgery follow up CHANGES SINCE LAST VISIT: Post-surgical recovery uneventful. Pain appropriately controlled with medication. Wearing sling most of the time. No falls or other injuries. Resp 18 Ht 165.1 cm (5' 5") Wt 57.2 kg (126 lb) LMP 05/07/2009 [...] & Elbow Surgeon Department of Orthopaedic Surgery [facility] Medical Decision Making: Medical Decision Making Level: 1 - N/A documented in this encounter [facility] 09-09-2023 Instructions Sam Khan APRN.CNP - 09/09/2023 3:19 PM EDT Goal is for the tylenol use to be 4000 mg or less in 24 hours. Keep icing the shoulder. Okay to keep taking the ibuprofen. We will refill the percocet. documented in this encounter [facility] 09-09-2023 History of Present illness Narrative SUBJECTIVE [...] weeks (around 10/14/2023) for recheck on pain. Sam Khan APRN-LUIS DANIEL documented in this encounter [facility] 09-05-2023 History of Present illness Narrative Program_ID:[id number] Access Code: [email or web address] URL: [email or web address] m/ Date: 09-05-2023 Prepared By: Yodit Baker [...] of Care: created on 09/05/23 through 10/17/23 [place] in home exercise program. 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 Patient education as noted. Self-Mcc Management: 1: discussed avoiding guarding with codman [...] Yodit Baker PT documented in this encounter [facility] 09-02-2023 Miscellaneous Notes Pt will run out of pain medication on Tuesday. I have put in a refill to be filled not until Tuesday. Last refill 09-01-23 documented in this encounter [facility] 09-01-2023 Miscellaneous Notes Patient called requesting refill of post-op pain medication. Patients last known Refill Date: 08-29-23, date of surgery Patient Phone numbers: [phone] (home) Request is for script(s) to be escript to pharmacy. Alis Espinosa documented in this encounter [facility] 08-29-2023 Note HNO ID: [id number] Author: ASHTYN SANDERSON RN Service: General Surgery Author Type: Registered Nurse Type: Nursing Progress Note Filed: 08/29/2023 15:07 Note Text: Other: patient dressed with 1 assist [facility] 08-29-2023 Note HNO ID: [id number] Author: ASHTYN SANDERSON RN Service: General Surgery Author Type: Registered Nurse Type: Nursing Progress Note Filed: 08/29/2023 14:49 Note Text: Other: patient sat up [facility] 08-29-2023 Note HNO ID: [id number] Author: BRITT WOODS APRN.CRNA Service: Anesthesiology Author Type: Nurse Battery Assembler Type: Anesthesia Procedure Notes Filed: 08/29/2023 13:17 Note Text: ANESTHESIOLOGY PROCEDURE NOTE Airway General Information Procedure Start Time/Medication Administration: 08/29/2023 1:11 PM Patient location during procedure: OR Timeout Performed Pre-procedure: timeout performed Consent Obtained: Yes Patient identity confirmed: arm band and patient Staffing CLERICAL SECRETARY: Britt Woods APRN.CLERICAL SECRETARY Performed by: ROHAN Indications and Patient Condition [...] August 29, 2023 TIME: 1:17 PM CSN: [id number] [facility] 08-29-2023 Note HNO ID: [id number] Author: OTF MCCLENDON MD Service: Anesthesiology Author [...] August 29, 2023 TIME: 12:02 PM CSN: [id number] [facility] 08-23-2023 Miscellaneous Notes Noted, I will watch [...] will be sending a MC message to Sam Khan CNP of her concerns as well. Reassurance was provided to patient that her surgical team as well as her PCP team will assist her with any concerns or questions she may have after her procedure. Shanon Lowe RN documented in this encounter [facility] 08-18-2023 Note HNO ID: [id number] Author: RADHA NERI APRN.CNP Service: ? Author Type: Nurse Practitioner Type: Progress Notes Filed: 08/18/2023 12:15 Note Text: ---- Summary: anesthesia ---- Patient with h/o RSV 08/01/2023 and influenza B 08/11/2023. Treated with 5 days of prednisone. CXR 08/11/2023-WNL. Using albuterol 3 times daily. METS 5.50. Patient states she is feeling much better. Lungs CTA on exam. Reviewed with Dr. Jorge in anesthesia. Per ISAAC Rosenthal to proceed with procedure as planned. Will evaluate patient DOS. Patient instructed in PAT to call surgeon's office if symptoms worsen or if she develops fever. [facility] 08-18-2023 History of Present illness Narrative Summary: anesthesia Patient with h/o RSV 08/01/2023 and influenza B 08/11/2023. Treated with 5 days of prednisone. CXR 08/11/2023-WNL. Using albuterol 3 times daily. METS 5.50. Patient states she is feeling much better. Lungs CTA on exam. Reviewed with Dr. Jorge in anesthesia. Per ISAAC Rosenthal to proceed with procedure as planned. Will evaluate patient DOS. Patient instructed in PAT to call surgeon's office if symptoms worsen or if she develops fever. documented in this encounter [facility] 08-18-2023 Instructions Radha Neri APRN.CNP - 08/18/2023 9:24 AM EST PATIENT PREOPERATIVE INSTRUCTIONS Louis Valencia,* has scheduled you for your procedure at this surgery center: [facility]. [address] [place] [address], [place] [address] Please read below carefully for your personalized [...] - Stop Vitamin E, fish oil, Ginko, Roman's Wort, flax seed oil, multivitamins, CBD oil, [...] surgery. - YOU MUST HAVE A RESPONSIBLE RAIL BONDER TAKE YOU HOME. A DRAFTING DETAILER, CAB OR UBER RAIL BONDER CANNOT BE MADE A RESPONSIBLE RAIL BONDER. - We also require that a responsible [...] Advance Directive, please fax a copy to [phone] or email to for it to be [...] Neri APRN.CNP 08/18/23 documented in this encounter [facility] 08-18-2023 History and physical note HISTORY AND [...] Initiated: No labs ordered per surgeon in [facility] I spent a total of 40 minutes on the date of the service which included preparing to see the patient, [id number] patient care, completing clinical documentation, obtaining and/or [...] Negative for: dysuria, hematuria and renal failure. OPERATIONS SPECIALIST: Negative for: vaginal bleeding. 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 Market Risk Specialist took her off meds. No issues in [...] & curettage,TAB ESOPHAGOGASTRODUODENOSCOPY TRANSORAL DIAGNOSTIC 11/01/11 EGD [facility] inpt H-pylori negative LIG/TRNSXJ FLP TUBE ABDL/VAG APPR UNI/BI 04/09/2006 Tubal ligation MYRINGOTOMY ASPIR&/EUSTACHIAN TUBE NFLTJ ANES 1994 Myringotomy/tubes OOPHORECTOMY PARTIAL/TOTAL UNI/BI left TONSILLECTOMY PRIMARY/SECONDARY <AGE 12 1987 Tonsillectomy FAMILY HISTORY Problem Relation Age of Onset Psychiatry Mother DEPRESSION Hypertension Father Cervical Cancer Maternal Grandmother Hypertension Maternal Grandmother Cancer Maternal Grandfather BLADDER Heart Maternal Grandfather [place] & EMPHYSEMA Social History Tobacco Use Smoking [...] 92 Temp 98.6 Resp 16 Ht 5' 5" (1.65m) Wt 122 lb (55.3kg) SpO2 98% [...] within date range. No results found for: "HBA1C" Recent Results (from the past 8760 hour(s)) ECG COMPLETE Collection Time: 04/30/23 9:41 AM Result Value Ventricular Rate 137 Atrial Rate 137 P-R Interval 124 QRS Duration 68 QT Interval 372 QTC Calculation (Bazett) 561 Calculated P Hum[place]ips 60 Calculated R Hum[place] 81 Calculated T [place] 53 Impression SINUS TACHYCARDIA POSSIBLE LEFT ATRIAL ENLARGEMENT NONSPECIFIC ST AND T WAVE ABNORMALITY ABNORMAL ECG No results found for this or any previous visit (from the past 01688 hour(s)). Instructions Given to Patient: Instructions located in the after visit summary. Patient given verbal and written preop instructions and voices comprehension and compliance. SIGNATURE: Radha Neri APRN.PUTTY REMOVER PATIENT NAME: Pat Knight DATE: August 17, 2023 TIME: 8:56 AM PAGER/CONTACT #: documented in this encounter [facility] 08-12-2023 Miscellaneous Notes Spoke with pt and information listed below given. Pt verbalizes understanding. Amber Minaya LPN Left VM instructing patient to return call to receive results. Jodi Brasher MA Please notify positive for flu B Typically course is 5-7 days Push fluids Continue with plan as discussed during visit documented in this encounter [facility] 08-11-2023 Miscellaneous Notes August 11, 2023 9:02 [...] and is agreeable to treatment plan. TIKA Degroot documented in this encounter [facility] 08-11-2023 Instructions Tori Jc - 08/11/2023 8:59 AM EST ASSESSMENT/PLAN: [...] device called a metered dose inhaler, or "MDI." The MDI is a small aerosol canister [...] prefer, you can obtain a device that "counts down" the number of puffs each time you press the inhaler. Ask your health career coordinator for more information on these devices. documented in this encounter [facility] 08-11-2023 History of Present illness Narrative Subjective [...] & curettage,TAB ESOPHAGOGASTRODUODENOSCOPY TRANSORAL DIAGNOSTIC 11/01/11 EGD [facility] inpt H-pylori negative LIG/TRNSXJ FLP TUBE ABDL/VAG APPR UNI/BI 04/09/2006 Tubal ligation MYRINGOTOMY ASPIR&/EUSTACHIAN TUBE NFLTJ ANES 1994 Myringotomy/tubes OOPHORECTOMY PARTIAL/TOTAL UNI/BI left TONSILLECTOMY PRIMARY/SECONDARY <AGE 12 1987 Tonsillectomy ALLERGIES Pamprin Multi-Symptom [Xdbmwuxqcheju-Eipirsex-Trqwddn], Buspar [Buspirone], Codeine, Lamotrigine, Nitrofurantoin Macrocrystal, and [...] Cancer Maternal Grandfather BLADDER Heart Maternal Grandfather [place] & EMPHYSEMA Social History Tobacco Use Smoking [...] - Prednisone Taper TIKA Degroot TEACHING PROVIDER (Physician/PA/STRATEGIC CLIENT EXECUTIVE) NOTE OF PERSONAL INVOLVEMENT IN CARE: I have personally seen and examined the patient and performed the medical decision-making components. I have reviewed the Advanced Practice Registered Nurse (STRATEGIC CLIENT EXECUTIVE) Student's documentation and verified the findings in the note as written. Any additions or changes are noted in bold/italics. Signature: Pennie Clemente Date: 08/11/2023 Time: 9:18 AM documented in this encounter [facility] 08-09-2023 Note HNO ID: [id number] Author: LOUIS VALENCIA MD Service: ? Author [...] negative Drop arm test: negative Biceps/joss Signs Bulloch's test: positive Clicking/popping: positive Speed's test: positive [...] AND Elbow Surgeon Department of Orthopaedic Surgery [facility] 08-09-2023 History of Present illness Narrative PAIN [...] negative Drop arm test: negative Biceps/joss Signs Bulloch's test: positive Clicking/popping: positive Speed's test: positive [...] & Elbow Surgeon Department of Orthopaedic Surgery [facility] documented in this encounter [facility] 08-05-2023 History of Present illness Narrative SUBJECTIVE [...] OBJECTIVE BP 118/72 Resp 16 Ht 5' 5" (1.65m) Wt 126 lb 8 oz (57.4kg) [...] activity was identified. 08/05/2023 by Sam Khan APRN.PUTTY REMOVER Portions of this note have been entered [...] Khan APRN-LUIS DANIEL documented in this encounter [facility] 08-01-2023 Miscellaneous Notes Patient returned call and went over notes from Dr Norman with understanding. Patient said she had to reschedule her appt due to being ill and moved to 08/09/[address] Valencia. Scheduled appt with ASP NET DEVELOPER for tomorrow morning at 740 am. Left a message for pt to call the office and ask to speak to a nurse. Amber Minaya LPN NOted Patient missed her appointment with Dr. Valencia. Rescheduled for 08/09. Needs follow up with me or LALA scheduled--last seen 05/31 and no follow up [...] Provider: MAILE NORMAN MD Pharmacy verified in [facility] Patient has been identified by name and [...] (129 lb) Not applicable Please advise. Pat Rowell documented in this encounter [facility] 08-01-2023 History of Present illness Narrative This note was created using [employer]. Subjective Pat Knight is a 43 year [...] No vomiting or diarrhea. Has been taking xhcm-top-jhdovfn medication with minimal improvement. No other complaint. [...] & curettage,TAB ESOPHAGOGASTRODUODENOSCOPY TRANSORAL DIAGNOSTIC 11/01/11 EGD [facility] inpt H-pylori negative LIG/TRNSXJ FLP TUBE ABDL/VAG APPR UNI/BI 04/09/2006 Tubal ligation MYRINGOTOMY ASPIR&/EUSTACHIAN TUBE NFLTJ ANES 1994 Myringotomy/tubes OOPHORECTOMY PARTIAL/TOTAL UNI/BI left TONSILLECTOMY PRIMARY/SECONDARY <AGE 12 1988 Tonsillectomy ALLERGIES Pamprin Multi-Symptom [Ipcncrmnoxdig-Jfjwfufq-Molhzco], Buspar [Buspirone], Codeine, Lamotrigine, Nitrofurantoin Macrocrystal, and [...] Cancer Maternal Grandfather BLADDER Heart Maternal Grandfather [place] & EMPHYSEMA Social History Tobacco Use Smoking [...] evaluation. SAAD Gamez documented in this encounter [facility] 06-16-2023 History of Present illness Narrative Antonio Rios MD Department of Orthopaedics [facility] [address] [place] [address] Dept: [phone] Dept June 16, 2023 CHIEF COMPLAINT: Pain [...] her shoulder. She had an MRI at [facility] but did not bring it. States it [...] old in no apparent distress. Gen:Ht 5' 5" (1.65m) Wt 125 lb (56.7kg) LMP 05/07/2009 [...] DATE OF EXAM: Mar 11 2023 3:01PM [facility] 0242 - MRI SHOULDER WO/W IVCON RT [...] Cancer Maternal Grandfather BLADDER Heart Maternal Grandfather [place] & EMPHYSEMA Social History: Social History Tobacco [...] medications for this visit. Allergies: Pamprin Multi-Symptom [Yqwuitcnurrka-Nwyqfisz-Oasidao], Buspar [Buspirone], Codeine, Lamotrigine, Nitrofurantoin Macrocrystal, and [...] via US mail. Charles Elliott [address] [facility] [address] Maile Norman MD [address] [facility] [address] Antonio Rios MD documented in this encounter [facility] 05-25-2023 Miscellaneous Notes PDMP website checked and validated. All prescriptions have been APPROPRIATELY filled. No suspicious activity was identified. 05/25/2023 by Sam Khan APRN.PUTTY REMOVER Patient has been identified by name and [...] Sharmin Monge LPN. documented in this encounter [facility] 05-16-2023 Miscellaneous Notes Message left on voicemail to call office for update. Karen Shore LPN documented in this encounter [facility] 05-13-2023 History of Present illness Narrative POPULATION HEALTH NAVIGATION OUTREACH Action/FYI Pt scheduled Patient Identified by Name and : YES, via phone Outreach Outcome/Action Spoke to patient / parent / legal guardian: Patient scheduled Did you use a PCP flex slot to schedule this appointment? No Reason for Outreach Care Gap or Scheduling/Wellness visits Payer: Payor: [place]ICA[place] / Plan: [facility] MEDICAID / Product Type: Medicaid / [...] 2023 3:37 PM documented in this encounter [facility] 05-12-2023 Miscellaneous Notes See other refill encounter [...] Britt Murray LPN documented in this encounter [facility] 05-12-2023 Miscellaneous Notes Pain management visit today advised Pat Knight: Discussed the guidelines of pain management and the patient appears to understand this practice would not be able to provide opioid therapy with her THC card. Review PDMP indicates recent THC fill. I cannot refill this for her, will defer to PCP for review. Duplicate request. See phone note. Aline Melvin RN documented in this encounter [facility] 05-12-2023 Miscellaneous Notes The referral to Orthopaedics for Chronic right shoulder pain, Labral tear of shoulder, degenerative, right has been submitted via the [facility] Internal Referral Request form on the [facility] Appointment Portal. Confirmation # [id number] Kimberly Crowe documented in this encounter [facility] 05-12-2023 Note HNO ID: [id number] Author: Vince Heck LPN Service: ? Author [...] for suicidal ideas. The patient is nervous/anxious. [facility] 05-12-2023 History of Present illness Narrative Review [...] not included. [facility] Today's Date: 05/12/2023 Last Visit: N/A Name: [...] and validated on 05/12/2023 by Charles Elliott APRN.PUTTY REMOVER All prescriptions have been APPROPRIATELY filled. No [...] BURSITIS. INTACT ROTATOR CUFF AND GLENOID LABRUM. Adult Parole Officer: PSCB Transcribe Date/Time: Mar 11 2023 3:11P Dictated by : TYESHA MARX MD This examination was interpreted and the report reviewed and electronically signed by: TYESHA MARX MD on Mar 11 2023 3:15PM EST Results-Findings * * *Final Report* * * DATE OF EXAM: Mar 11 2023 3:01PM [facility] 0242 - MRI SHOULDER WO/W IVCON RT [...] result by 1.210. No results found for: "PCGLUCOSE" Current Medications, Past Medical History, Past Surgical [...] Medications Interventional Procedures: None Studies: None Functional Jain: NONE Referrals: No additional considerations at present Orthopedics ([phone]) Follow-up: prn with Depending on response to [...] decision making from today's date. Charles Elliott APRN.LUIS DANIEL [facility] documented in this encounter [facility] 05-12-2023 Note HNO ID: [id number] Author: Charles Elliott APRN.LUIS DANIEL Service: ? Author Type: Nurse Practitioner Type: Progress Notes Filed: 05/12/2023 2:29 PM Note Text: [facility] Today's Date: 05/12/2023 Last Visit: N/A Name: [...] and validated on 05/12/2023 by Charles Elliott APRN.PUTTY REMOVER All prescriptions have been APPROPRIATELY filled. No [...] indicated otherwise) R (more content not included)... [facility] 05-05-2023 Miscellaneous Notes Patient returned call and given provider's message below and patient verbalized understanding. Shilo Lowe RN Left vm for patient to return call to nurse for provider's message. This findings of "possible" this and "non specific" that are related to her fast heart [...] Violeta Howard RN documented in this encounter [facility] 05-02-2023 Miscellaneous Notes Patient given results and [...] KEITH DIAZ PA-C documented in this encounter [facility] 04-30-2023 History of Present illness Narrative This note was created using Estrela Digitalriter. Subjective Patient presents with: Palpitations: Immunizations: Flu [...] Rick Queen MD documented in this encounter [facility] 04-30-2023 History of Present illness Narrative CC: [...] Pham APRN.LUIS DANIEL documented in this encounter [facility] 04-25-2023 Miscellaneous Notes Spoke with patient. Given message from provider's office. Patient verbalizes understanding. Aline Melvin RN Spoke with Binu/Pharmacist at [facility], states the escripted RX foe Percocet [...] on: 04/25/2023 05:43 PM Modules accepted: Orders [place] pharmacist @ [facility] calling to say patient brought printed script to pharmacy and then brought the script back to the clinic and she is not sure where that script is at this time. He says he needs a new e script with start date 04/25/23 in order to fill Percocet tonight. If agree, pended. Aline Melvin RN [facility] Pharmacist Ayo Hare called and is notified of providers message and instructions. Gave a verbal order of medication as the order had been printed. He voices understanding. Otilia Douglas, PEYMAN Ok to give verbal ok for fill today since increasing dose and pt will be out of state after today. Please see if a new script needs sent. [facility] calling for verbal okay to fill Percocet today. Pharmacist states patient says this was discussed at today's OV. Aline Melvin, RN documented in this encounter [facility] 04-25-2023 Miscellaneous Notes Addended by: SAM KHAN on: 04/25/2023 03:43 PM Modules accepted: Orders documented in this encounter [facility] 04-25-2023 History of Present illness Narrative SUBJECTIVE Pat Knight is a 43 year old female here today for a check up on her medical problems. Chief Complaint Patient presents with: UTI: lower abdominal pain and burning right shoulder: with work related injury treats with oral pain medication percocet, deep heating rub, Pain management has rescheduled her twice. Completed PT through [facility] Would like a referral to ortho at [facility] to discuss options HPI Pat Knight is a 43 year old female. Here today for concerns of a possible UTI. Bladder pain with urination. Also having issues still with her shoulder causing pain. Would like to see ortho with [facility] if possible. Her medications were reviewed [...] Khan APRN-LUIS DANIEL documented in this encounter [facility] 04-25-2023 Instructions Sujatha Simpson LPN - 04/25/2023 [...] treated. A physician, nurse practitioner or physician assistant professor of communication may treat with a short course of [...] if symptoms resolve. documented in this encounter [facility] 04-11-2023 Miscellaneous Notes Tried calling patient three times, kept getting the busy signal so no message could be left. Left patient a GeoVax message regarding this appointment reschedule. documented in this encounter [facility] 03-30-2023 Miscellaneous Notes Patient notified of CBC, voicemail, advised probable viral, monitor symptoms, if worsening to ER, other alarcon should clear in next few days. Follow up with Dr You as needed. Oksana Weldon APRN.CNP documented in this encounter [facility] 03-30-2023 History of Present illness Narrative Radiology [...] 2023 8:38 AM documented in this encounter [facility] 03-18-2023 Miscellaneous Notes Noted plans to continue pain med till see pain management per [place] messages between patient and Sam. The following [...] and date of : Yes, Provider Ester Duval 03-18-23 Time 9:17 am Patient phones for [...] Sharon Sutherland RN documented in this encounter [facility] 03-15-2023 Hospital Discharge instructions Patient Education 03/15/2023 [...] shoulder or upper arm Fever or chills [id number] The Mr. Number. [address] [place] [address], [place] [address]. All rights reserved. This information is not intended as a substitute for professional medical care. Always follow your healthcare professional's instructions. Follow Up Care 03/15/2023 09:47:09 With:MAILE NORMAN MD Address: [address] [place] [address]- When:2-[address] [facility] 03-15-2023 Note Discharge Instructions Thank you for allowing [facility] to assist you with your healthcare needs. [...] NORMAN MD When Within 2-4 days Where: [address] [place] [address]- Allergies LaMICtal Pamprin Maximum Pain [...] may report side effects to FDA at 4-739-VPV-1007. What other drugs will affect orphenadrine? Taking orphenadrine with other drugs that make you sleepy or slow your breathing can cause dangerous side effects or . Ask your doctor before taking a sleeping pill, narcotic pain medicine, prescription cough medicine, a muscle relaxer, or medicine for anxiety, depression, or seizures. Other drugs may interact with orphenadrine, including prescription and lyzv-udn-srdesih medicines, vitamins, and herbal products. Tell each [...] to ensure that the information provided by [employer]. ('Multum') is accurate, up-to-date, and complete, but no guarantee is made to that effect. Drug information contained herein may be time sensitive. [employer] information has been compiled for use by healthcare practitioners and consumers in the [place] and therefore [employer] does not warrant that uses outside of the [place] are appropriate, unless specifically indicated otherwise. [employer] drug information does not endorse drugs, diagnose patients or recommend therapy. [employer] drug information is an informational resource designed [...] effective or appropriate for any given patient. [employer] does not assume any responsibility for any aspect of healthcare administered with the aid of information Hum[employer] provides. The information contained herein is not intended to cover all possible uses, directions, precautions, warnings, drug interactions, allergic reactions, or adverse effects. If you have questions about the drugs you are taking, check with your doctor, nurse or pharmacist. Copyright 6938-9177 [employer]. Version: 7.01. Revision Date: 02/02/2023. tramadol (TRAM a dol) ConZip, Qdolo, TraMADol Hydrochloride ER (Eqv-Ryzolt), TraMADol Hydrochloride ER [...] The extended-release form of tramadol is for thbmbo-kvr-rnyps treatment of pain. This form of tramadol [...] may report side effects to FDA at 3-038-JCX-9431. What other drugs will affect tramadol? You [...] drugs may affect tramadol, including prescription and eaqr-ouk-fanilio medicines, vitamins, and herbal products. Not all [...] may affect tramadol. This includes prescription and glmn-typ-elfegmy medicines, vitamins, and herbal products. Not all [...] to ensure that the information provided by [employer]. ('Multum') is accurate, up-to-date, and complete, but no guarantee is made to that effect. Drug information contained herein may be time sensitive. [employer] information has been compiled for use by healthcare practitioners and consumers in the [place] and therefore [employer] does not warrant that uses outside of the [place] are appropriate, unless specifically indicated otherwise. [employer]'s drug information does not endorse drugs, diagnose patients or recommend therapy. [facility]'s drug information is an informational resource designed [...] effective or appropriate for any given patient. [facility] does not assume any responsibility for any aspect of healthcare administered with the aid of information [facility] provides. The information contained herein is not intended to cover all possible uses, directions, precautions, warnings, drug interactions, allergic reactions, or adverse effects. If you have questions about the drugs you are taking, check with your doctor, nurse or pharmacist. Copyright 9060-4984 [facility] [employer]. Version: 24.. Revision Date: 01/28/2023. Education Materials [...] shoulder or upper arm Fever or chills 9357-7976 The Mr. Number. [address] [place] [address]. All rights reserved. This information is not intended as a substitute for professional medical care. Always follow your healthcare professional's instructions. Additional Information VACCINATE! IT SAVES LIVES! Members of the community who have not yet received the COVID-19 vaccine and would like to receive it can visit one of [facility] vaccine clinics. There are many vaccine clinic locations within the [facility]. For locations and available times, please visit [email or web address] It is important to note that some COVID mobile vaccine clinics are held outdoors and may be canceled in rainy or stormy conditions. To learn more about pediatric vaccinations (ages 5-11), we invite you to visit the [facility] webpage. [email or web address] 764-Jefpa-Ffvxlurokfk-Frequently-Asked -Questions.html To learn more about the COVID-19 vaccine, we invite you to visit the CDC website for a list of frequently asked questions. https://www.cdc.gov/coronavirus/2019-n cov/vaccines/faq.html [facility] Patient Portal Access Instructions: Stay connected with your healthcare team and access your personal medical information anytime with the [facility] Patient Portal. If you would like a full copy of your medical records please contact the [facility] Medical Records Department Tuesday through Tuesday between 8a.m. and 4:30p.m. Please follow the directions below to access the portal: 1.Access the email account you provided upon registration to the [facility].2.Look for an invitation email from [facility].3.Open the email and access the invitation link: Accept Invitation to [facility]4.Fill in the required moore to create your account. Sign into [email or web address] with your username and password that you [...] you will allow to register on the [facility] Patient Portal for access to your information. You can also access the [facility] Patient Portal on the [employer] Simply click on "Health Records" under "Health Data" and then click on the [facility] logo. HOW TO SAFELY DISPOSE OF PRESCRIPTION [...] Call your local pharmacy or go to [email or web address] to find one close to you.3.Make use of household items: Use cat litter or old coffee grounds to dispose medications if other options are not available. Mix your drugs with these household products, seal them in an airtight container and throw it into the garbage. Call [facility]: [phone] to be sure your drugs can be [...] aware that I should contact my doctor. 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 03-15-2023 Note ORIGINAL EXAMINATION: TWO XRAY [...] Report By: Anthony Ruffin Electronically signed By Antonoi Abreu MD Dictated Date: 03/15/2023 10:45:24 AM Prelim Date: 03/15/2023 10:58:13 AM Sign Date: 03/15/2023 10:58:13 AM Ordering Provider: [facility] 03-11-2023 History of Present illness Narrative [...] TIME: 2:25 PM documented in this encounter [facility] 03-07-2023 Miscellaneous Notes Message left on pt's VM with update below. Pt advised to contact PCP office for any questions or concerns. Shanon Lowe RN documented in this encounter [facility] 03-07-2023 Miscellaneous Notes I am just now getting a chance to fill this, refill sent, please let her know. Sam Khan APRN.LUIS DANIEL PDMP website checked and validated. 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 This can not be completed at [facility] if so. Call ext [phone] with Sam's response to above. documented in this encounter [facility] 02-15-2023 History of Present illness Narrative POPULATION HEALTH NAVIGATION OUTREACH Action/[facility] Called pt to schedule an appt in [...] Care Gap or Scheduling/Wellness visits Payer: Payor: JAIRO / Plan: BLUE CARD PPO OOS / [...] 2023 3:19 PM documented in this encounter [facility] 02-08-2023 History of Present illness Narrative SUBJECTIVE Pat Knight is a 43 year old female here today for acute concern. Chief Complaint Patient presents with: Shoulder Injury: of right shoulder and requesting a MRI with contrast. This was a work related injury but due to paperwork issues the claim was closed. Has an tax attorney trying to appeal the decision. Consult: [...] date of the injury. 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 Has done PT. Has seen Dr. Traore with [facility] and Dr. Stapleton with [facility] for orthopaedics. Has had an MRI without contrast, was recommended she needs contrast MRI to better show the issues in the shoulder. Wants to see pain management in the mean time. Has done steroids. On muscle relaxers. Seen in ER at [facility] 01/25 because pain was so bothersome. Workers comp case, case was closed. Working with tax attorney. Her medications were reviewed today and [...] NSAIDs. 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 However, providing ongoing pain relief is often complex. We recommend this be done through your primary health care provider such as your family doctor or furniture painter. Because mistakes or misuses of pain medication [...] show a valid photo ID (like a power screwdriver operator's license) when you check into the emergency/acute [...] or other controlled substance, we check the [place] Automated Rx Reporting system (OARRS) or a [...] or call the Crisis Intervention Center of [facility] at [phone]. It is against the law to attempt [...] When:2-4 days With:MAILE NORMAN MD Address: [address] [place] [address]- When:2-4 days [facility] Nichobrett Jennings 01-25-2023 Note Discharge Instructions Thank you for allowing [facility] to assist you with your healthcare needs. [...] MD When Within 2-4 days Where: [address], [place] [id number] Allergies LaMICtal Pamprin Maximum Pain codeine Medications [...] or retail pharmacies. Medication Leaflets cyclobenzaprine (norma holley) Amrix, Comfort Pac with Cyclobenzaprine, Fexmid [...] may report side effects to FDA at 9-924-OHY-1518. What other drugs will affect cyclobenzaprine? Using [...] drugs may affect cyclobenzaprine, including prescription and lorf-idc-mhexvjh medicines, vitamins, and herbal products. Not all [...] to ensure that the information provided by [employer]. ('Multum') is accurate, up-to-date, and complete, but no guarantee is made to that effect. Drug information contained herein may be time sensitive. Hum[employer] information has been compiled for use by healthcare practitioners and consumers in the [place] and therefore Hum[employer] does not warrant that uses outside of the [place] are appropriate, unless specifically indicated otherwise. [employer] drug information does not endorse drugs, diagnose patients or recommend therapy. [employer] drug information is an informational resource designed [...] effective or appropriate for any given patient. [employer] does not assume any responsibility for any aspect of healthcare administered with the aid of information Humag[employer] provides. The information contained herein is not intended to cover all possible uses, directions, precautions, warnings, drug interactions, allergic reactions, or adverse effects. If you have questions about the drugs you are taking, check with your doctor, nurse or pharmacist. Copyright 7376-9667 [employer]. Version: 5.01. Revision Date: 03/22/2018. acetaminophen and [...] may report side effects to FDA at 5-085-GGE-4848. What other drugs will affect acetaminophen and [...] affect acetaminophen and oxycodone, including prescription and cfhw-aqf-ejkuyhc medicines, vitamins, and herbal products. Not all [...] to ensure that the information provided by [employer]. ('MinuteKeytum') is accurate, up-to-date, and complete, but no guarantee is made to that effect. Drug information contained herein may be time sensitive. [employer] information has been compiled for use by healthcare practitioners and consumers in the [place] and therefore Humag[employer] does not warrant that uses outside of the [place] are appropriate, unless specifically indicated otherwise. [employer]'s drug information does not endorse drugs, diagnose patients or recommend therapy. [employer] drug information is an informational resource designed [...] effective or appropriate for any given patient. [employer] does not assume any responsibility for any aspect of healthcare administered with the aid of information Humagade provides. The information contained herein is not intended to cover all possible uses, directions, precautions, warnings, drug interactions, allergic reactions, or adverse effects. If you have questions about the drugs you are taking, check with your doctor, nurse or pharmacist. Copyright 1027-5769 [employer]. Version: 20.03. Revision Date: 08/01/2020. Education Materials [facility] Pain Management in our Emergency/Acute Care Facility Our staff understands that pain relief is important when someone is hurt or needs emergency care. However, providing ongoing pain relief is often complex. We recommend this be done through your primary health care provider such as your family doctor or furniture painter. Because mistakes or misuses of pain medication [...] show a valid photo ID (like a power screwdriver operator's license) when you check into the emergency/acute [...] or other controlled substance, we check the [place] Automated Rx Reporting system (OARRS) or a [...] or call the Crisis Intervention Center of [facility] at [phone]. It is against the law to attempt [...] to receive it can visit one of [facility] vaccine clinics. There are many vaccine clinic locations within the [facility]. For locations and available times, please visit www.[email or web address]/. It is important to note that some COVID mobile vaccine clinics are held outdoors and may be canceled in rainy or stormy conditions. To learn more about pediatric vaccinations (ages 5-11), we invite you to visit the [facility] webpage. [email or web address] 072-Ttxyk-Ojtitlpdxtl-Frequently-Asked -Questions.html To learn more about the COVID-19 vaccine, we invite you to visit the CDC website for a list of frequently asked questions. https://www.cdc.gov/coronavirus/2019-n cov/vaccines/faq.html [facility] Patient Portal Access Instructions: Stay connected with your healthcare team and access your personal medical information anytime with the [facility] Patient Portal. If you would like a full copy of your medical records please contact the [facility] Medical Records Department Tuesday through Tuesday between 8a.m. and 4:30p.m. Please follow the directions below to access the portal: 1.Access the email account you provided upon registration to the hospital.2.Look for an invitation email from [facility].3.Open the email and access the invitation link: Accept Invitation to [facility]4.Fill in the required moore to create your account. Sign into [email or web address] with your username and password that you [...] you will allow to register on the [facility] Patient Portal for access to your information. You can also access the [facility] Patient Portal on the [employer] Simply click on "Health Records" under "Health Data" and then click on the [facility] logo. [...] Call your local pharmacy or go to [email or web address] to find one close to you.3.Make use of household items: Use cat litter or old coffee grounds to dispose medications if other options are not available. Mix your drugs with these household products, seal them in an airtight container and throw it into the garbage. Call [facility]: [phone] to be sure your drugs can be [...] aware that I should contact my doctor. 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 01-10-2023 Miscellaneous Notes Appt. Pt called [...] racing heart. Protocols used: Anxiety and Panic Vjlckw-OXEDU-GI documented in this encounter [facility] 01-10-2023 History of Present illness Narrative This note was created using [employer] Ed[employer]. Subjective Pat Knight is a 42 year old female. Patient presents with: Established Patient: Discuss medication and panic attacks SUBJECTIVE: Pat Knight is a 42 year old year old lady here today for follow up appointment for review of medical conditions. 180--going to do counseling and see their doctor. Will start next week there. Wants to "get a better life" Needs help with panic attacks. Overwhelmed. No [...] Maile Norman MD documented in this encounter [facility] 12-07-[address] Mccloud should be [...] and let her know when completed. Gayla Ayala APRN.LUIS DANIEL Patient notified of results.Patient stated that pain management was recommended, please place consult order fo rpain management Patient is needing information for pain management- and their phone # [phone]. Phoned patient back and given phone # for . Yen Jo LPN Left message for patient to return call. Charles Garcia Ma ----- Message from Arnie Carrasco MD sent at 12/06/2022 12:35 PM EDT ----- Xray of her sacrum/coccyx is normal. Continue treatment as discussed in office. documented in this encounter [facility] 12-01-2022 History of Present illness Narrative Radiology [...] 2022 2:00 PM documented in this encounter [facility] 12-01-2022 History of Present illness Narrative 12/01/2022 [...] Temporomandibular joint disorders, unspecified ALLERGIES Pamprin Multi-Symptom [Wdntuzdooxgbv-Prnpsflh-Onclkhg], Buspar [Buspirone], Codeine, Lamotrigine, Nitrofurantoin Macrocrystal, and [...] SACRUM/COCCYX 3V AP/LAT - follow-up pending xray Gayla Ayala APRN.CNP Prescription instructions reviewed with patient [...] which included preparing to see the patient, dlfn-fi-fjeq patient care, completing clinical documentation, obtaining and/or reviewing separately obtained history, performing a medically appropriate examination, counseling and educating the patient/family/caregiver, and ordering medications, tests, or procedures. documented in this encounter [facility] 12-01-2022 Miscellaneous Notes Reviewed. Gayla Ayala APRN.CNP Pt calling to request appt with provider today if possible. -Reports soreness to her tailbone for several months, has been a chronic issue for her -states "it feels abnormal", "like a bunch of knots" in area -sits for prolonged periods of time -just bought donut cushion to use -patient voices concern for area and would like it evaluated No appts available with PCP team or Int Med today. Pt agreeable to be seen by Gayla Ayala CNP today. Shanon Lowe RN documented in this encounter [facility] 09-17-2022 Miscellaneous Notes Patient notified of results [...] for up to 30 days. Authorizing Provider: MIALE NORMAN MD Patient calling, states that she [...] panic feeling. Would like prescription [facility]. Please advise. documented in this encounter [facility] 09-09-2022 History of Present illness Narrative Subjective [...] <AGE 14 1985 Tonsillectomy ALLERGIES Pamprin Multi-Symptom [Bqhcubabwczym-Qwioafwq-Lsdyrob], Buspar [Buspirone], Codeine, Lamotrigine, Nitrofurantoin Macrocrystal, and [...] Cancer Maternal Grandfather BLADDER Heart Maternal Grandfather [place] & EMPHYSEMA Social History Tobacco Use Smoking [...] Discussed expected course of illness Pennie Clemente APRN.CNP documented in this encounter [facility] 09-09-2022 Instructions Pennie Clemente APRN.CNP - 09/09/2022 [...] course of illness Pennie Clemente APRN.LUIS DANIEL Beginning Home Isolation Isolation is used to [...] to your local emergency facility: Notify the mill roll operator that you are seeking care for [...] concerning to you. documented in this encounter [facility] 09-08-2022 Miscellaneous Notes Noted. 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 Advised to go back to express care for evaluation may need COVID and influenza testing done. Patient said she may go back a little later or first thing morning. documented in this encounter [facility] 08-11-2022 Miscellaneous Notes Pt already received message [...] nicotine patches and gum called into [facility] in [place] for her. She state she will need high dose of the patches. Please call Pt back and advise. documented in this encounter [facility] 07-18-2022 History of Present illness Narrative CC: [...] <AGE 14 1985 Tonsillectomy ALLERGIES Pamprin Multi-Symptom [Hzdrselirhwvp-Nrnpviiu-Iqjqzjb], Buspar [Buspirone], Codeine, Lamotrigine, Nitrofurantoin Macrocrystal, and Promethazine-Phenylephrine MEDICATIONS acetaminophen (TYLENOL) 325 mg tablet Take 650 mg by mouth every 6 hours as needed. traZODone (DESYREL) 100 mg tablet Take 1 tablet by mouth daily at bedtime. FAMILY HISTORY Problem Relation Age of Onset Psychiatry Mother DEPRESSION Cervical Cancer Maternal Grandmother Hypertension Maternal Grandmother Cancer Maternal Grandfather BLADDER Heart Maternal Grandfather [place] & EMPHYSEMA Social History Tobacco Use Smoking [...] occur. Patient agreeable to treatment plan. Kimberly Rodriguez APRN.CNP documented in this encounter [facility] 06-01-2022 Miscellaneous Notes 05/31/2022 Bonita Bajwa Good morning, Reached out to patient to get her scheduled, patient states that she is already scheduled for this at [facility]. Thank you, Bonita Email sent to the [facility] requesting an US guided breast biopsy for Pat. Rosa M Mercado RN documented in this encounter [facility] 05-26-2022 History of Present illness Narrative FOLLOW UP VISIT NAME: Pat Knight [facility] NO.: [id number] DATE OF SERVICE: 05/25/2022 : 1980 REFERRING [...] and ultrasound on May 12, 2022 at [facility] which demonstrated: Ultrasound-a palpable abnormality listed [...] biopsy. I asked for the images from [facility] to be noted in the [facility] system. The patient returns today for follow-up evaluation and likely biopsy. She is quite anxious about the possibility of breast cancer. Unfortunately, the mammogram images were placed in the system which demonstrated no abnormalities. The ultrasound images were not placed in the system. VITALS: Blood pressure 106/78, pulse 110, temperature 36.8 C (98.3 F), height 165.1 cm (5' 5"), weight 59.9 kg (132 lb), last menstrual period 05/27/2009, SpO2 99 %. Assessment IMPRESSION: Right upper inner breast abnormality on outside institution imaging PLAN: I apologized to the patient that we did not have the proper imaging for me to compare and perform a biopsy today. My office will again try to get the proper images loaded in the [facility] system. Given the patient's anxiety and the fact that I will be out of the office for the next week I will attempt to have the biopsy performed by the breast radiologist as soon as possible in the [facility] system. Diagnoses: (N63.10) Mass of right breast, unspecified quadrant (primary encounter diagnosis) Return to Clinic: The patient is instructed to follow-up with me as needed. Kuldeep Ellis MD documented in this encounter [facility] 05-13-2022 History of Present illness Narrative HISTORY [...] and ultrasound on May 12, 2022 at [facility] which demonstrated: Ultrasound-a palpable abnormality listed [...] medications for this visit. ALLERGIES: Pamprin Multi-Symptom [Rhsevkfvrsyan-Uayfzxdi-Yylrywl], Buspar [Buspirone], Codeine, Lamotrigine, Nitrofurantoin Macrocrystal, and [...] Cancer Maternal Grandfather BLADDER Heart Maternal Grandfather [place] & EMPHYSEMA REVIEW OF SYMPTOMS: The review of systems data was entered by the nurse and reviewed by me Nursing Notes: Rosa M Mercado RN 05/13/2022 [...] Last Colonoscopy: None Rosa M Mercado RN PHYSICAL EXAMINATION: General: The patient is 42 year old female, well nourished, well hydrated in no acute distress. The patient is oriented to time, place, and person. VITALS: Blood pressure 112/70, pulse 110, temperature 36.7 C (98 F), height 165.1 cm (5' 5"), weight 57.6 kg (127 lb), last menstrual [...] I do not have the imaging from [facility] unfortunately today. The area that I see [...] Kuldeep Ellis MD documented in this encounter [facility] 05-13-2022 Nurse Note REVIEW OF SYSTEMS: General: [...] M Mercado RN documented in this encounter [facility] 05-13-2022 Miscellaneous Notes Patient calling asking about breast ultrasound results. Went over results, notes below from Dr Norman with understanding. Assisted with transfer to medical front desk coordinator to get Gen surgery appt set up. Order filed. Biopsy of lump recommended. Pt completed diagnostic mammogram and ultrasound. They are in scanned documents. Please review. documented in this encounter [facility] 05-11-2022 Miscellaneous Notes Order have been faxed to [facility] at this time and they will call her to schedule appointment. Pt called and is notified of providers message and instructions. Pt voices understanding. Pt asking if order can be sent to [facility]. Faxed orders to [phone]. Otilia Douglas RN New order signed, please send, thanks!! Since she hasn't had a mammogram before [facility] wants a diagnostic bilateral mammogram and us of the right breast.(This order is already in place.) Please let her know that unfortunately there is a long wait time for breast imaging. If she prefers she can check and see if she is able to get in sooner to do it somewhere else like [facility] or [place]. With her having the issues it would [...] message on voicemail. documented in this encounter [facility] 05-07-2022 Instructions Karen Gaspar APRN.CNS - 05/07/2022 11:39 AM EST documented in this encounter [facility] 05-07-2022 History of Present illness Narrative Images [...] 99 Resp 16 Ht 165.1 cm (5' 5") Wt 56.2 kg (124 lb) LMP 05/27/2009 [...] cancer - ICD9: V76.2, ICD10: Z12.4 Endorse OPERATIONS SPECIALIST visit 3. Insomnia, unspecified type - ICD9: [...] ICD9: V72.31, ICD10: Z01.419 - CONSULT TO COIN PURSE FRAMER Did not complete labs today - endorse complete Scheduled mammogram, no other visit, stated needed to leave. Karen Gaspar APRN.RECORDING ENGINEER Medical Decision Making: Problems: Low: Acute, uncomplicated illness or injury, 2+ self-limited or minor problems and Stable chronic illness Data: Unique test(s) ordered: 2 Risk: Moderate: Drug management Medical Decision Making Level: 3 - Low documented in this encounter [facility] 04-20-2022 Miscellaneous Notes Pt requesting refill. JESUS: 05/12/21 NOV: 05/07/22 Last Refill: 03/05/22 Britt Murray LPN documented in this encounter [facility] 04-12-2022 History of Present illness Narrative POPULATION HEALTH NAVIGATION OUTREACH Action/FYI Left voicemail Pt identified by name and : NO Outreach Outcome/Action Unable to reach patient: Left message [facility] sent Did you use a PCP flex slot to schedule this appointment? No Reason for Outreach Care Gap or Scheduling/Wellness visits Payer: Payor: [place] [employer]ICA[employer] / Plan: [facility] MEDICAID / Product Type: Medicaid / [...] 2022 12:02 PM documented in this encounter [facility] 03-16-2022 History of Present illness Narrative Radiology [...] 2022 8:36 AM documented in this encounter [facility] 03-16-2022 History of Present illness Narrative Subjective [...] & curettage,TAB ESOPHAGOGASTRODUODENOSCOPY TRANSORAL DIAGNOSTIC 11/01/11 EGD [facility] inpt H-pylori negative LIG/TRNSXJ FLP TUBE ABDL/VAG APPR UNI/BI 04/09/2006 Tubal ligation MYRINGOTOMY ASPIR&/EUSTACHIAN TUBE NFLTJ ANES 1994 Myringotomy/tubes OOPHORECTOMY PARTIAL/TOTAL UNI/BI left TONSILLECTOMY PRIMARY/SECONDARY <AGE 12 1987 Tonsillectomy ALLERGIES Pamprin Multi-Symptom [Ximtvleraqaxl-Qgcnifpy-Ouwmqpn], Buspar [Buspirone], Codeine, Lamotrigine, Nitrofurantoin Macrocrystal, and [...] Cancer Maternal Grandfather BLADDER Heart Maternal Grandfather [place] & EMPHYSEMA Social History Tobacco Use Smoking [...] Pennie Clemente APRN.CNP documented in this encounter [facility] 03-16-2022 Instructions Pennie Clemente APRN.CNP - 03/16/2022 8:30 AM EDT ASSESSMENT/PLAN: 1. Splinter of finger - ICD9: 915.6, ICD10: S60.459A - XR DIGIT GENERAL 3V FRONTAL/LAT/OBL RIGHT - CONSULT PANEL TO ORTHOPAEDICS - warm water with epsom salt soaks 2-3 times daily, 15 minutes per time. Pennie Clemente APRN.CNP documented in this encounter [facility] 03-09-2022 Miscellaneous Notes VM not set up. [...] Violeta Howard RN documented in this encounter [facility] 01-20-2022 History of Present illness Narrative Subjective [...] <AGE 14 1985 Tonsillectomy ALLERGIES Pamprin Multi-Symptom [Mqgvjonoprmpk-Bjgcuwwg-Csxtaaj], Buspar [Buspirone], Codeine, Lamotrigine, Nitrofurantoin Macrocrystal, and [...] Cancer Maternal Grandfather BLADDER Heart Maternal Grandfather [place] & EMPHYSEMA Social History Tobacco Use Smoking [...] or bulging. Nose: Congestion present. Mouth/Throat: Lips: [place]. Mouth: Mucous membranes are moist. Pharynx: Oropharynx [...] of care. This note was generated using [employer] software. It may contain errors in wording, punctuation, or spelling. Galo Bernal APRN.LUIS DANIEL documented in this encounter [facility] 01-20-2022 Instructions Galo Bernal APRN.LUIS DANIEL - [...] concerning to you. documented in this encounter [facility] 01-05-2022 History of Present illness Narrative Nontoxic-appearing [...] plan of care will be seen at [facility]. Galo Bernal APRN.CNP documented in this encounter [facility] 12-18-2021 Miscellaneous Notes Pt called I asking for her blood type. She had a type and screen done in 08-10-05. Mailed to pt. Amber Minaya LPN documented in this encounter [facility] 03-09-2021 History of Present illness Narrative Radiology [...] 2021 9:50 AM documented in this encounter [facility] 06-15-2016 History of Past i llness Narrative [...] of this encounter (statuses as of 12/22/2021) [facility] of Past illness Narrative* Problem Noted [...] of this encounter (statuses as of 01/05/2022) [facility] Narrative* Problem Noted [...] of this encounter (statuses as of 01/20/2022) [facility] Narrative* Problem Noted [...] of this encounter (statuses as of 03/08/2022) [facility] Narrative* Problem Noted [...] of this encounter (statuses as of 03/09/2022) [facility] Narrative* Problem Noted [...] of this encounter (statuses as of 03/16/2022) [facility] Narrative* Problem Noted [...] of this encounter (statuses as of 04/12/2022) [facility] Narrative* Problem Noted [...] of this encounter (statuses as of 04/20/2022) [facility] Narrative* Problem Noted [...] of this encounter (statuses as of 05/07/2022) [facility] Narrative* Problem Noted [...] of this encounter (statuses as of 05/11/2022) [facility] Narrative* Problem Noted [...] of this encounter (statuses as of 05/13/2022) [facility] Narrative* Problem Noted [...] of this encounter (statuses as of 05/26/2022) [facility] Narrative* Problem Noted [...] of this encounter (statuses as of 05/31/2022) [facility] Narrative* Problem Noted [...] of this encounter (statuses as of 06/01/2022) [facility] Narrative* Problem Noted [...] of this encounter (statuses as of 07/18/2022) [facility] Narrative* Problem Noted [...] of this encounter (statuses as of 08/11/2022) [facility] Narrative* Problem Noted [...] of this encounter (statuses as of 09/09/2022) [facility] Narrative* Problem Noted [...] of this encounter (statuses as of 09/09/2022) [facility] Narrative* Problem Noted [...] of this encounter (statuses as of 09/17/2022) [facility] Narrative* Problem Noted [...] of this encounter (statuses as of 12/01/2022) [facility] N[facility]* Problem Noted [...] of this encounter (statuses as of 12/02/2022) [facility] N[facility]* Problem Noted [...] of this encounter (statuses as of 01/11/2023) [facility]* Problem Noted [...] of this encounter (statuses as of 02/09/2023) [facility]* Problem Noted [...] of this encounter (statuses as of 02/14/2023) [facility]* Problem Noted [...] of this encounter (statuses as of 02/14/2023) [facility]* Problem Noted [...] of this encounter (statuses as of 02/16/2023) [facility]* Problem Noted [...] of this encounter (statuses as of 03/07/2023) [facility]* Problem Noted [...] of this encounter (statuses as of 03/07/2023) [facility]* Problem Noted [...] of this encounter (statuses as of 03/08/2023) [facility]* Problem Noted [...] of this encounter (statuses as of 03/14/2023) [facility]* Problem Noted [...] of this encounter (statuses as of 03/19/2023) [facility]* Problem Noted [...] of this encounter (statuses as of 04/01/2023) [facility]* Problem Noted [...] of this encounter (statuses as of 04/11/2023) [facility]* Problem Noted [...] of this encounter (statuses as of 04/26/2023) [facility]* Problem Noted [...] of this encounter (statuses as of 04/26/2023) [facility]* Problem Noted [...] of this encounter (statuses as of 05/01/2023) [facility]* Problem Noted [...] of this encounter (statuses as of 05/01/2023) [facility]* Problem Noted [...] of this encounter (statuses as of 05/01/2023) [facility]* Problem Noted [...] of this encounter (statuses as of 05/03/2023) [facility]* Problem Noted [...] of this encounter (statuses as of 05/05/2023) [facility]* Problem Noted [...] of this encounter (statuses as of 05/12/2023) [facility]* Problem Noted [...] of this encounter (statuses as of 05/12/2023) [facility]* Problem Noted [...] of this encounter (statuses as of 05/12/2023) [facility]* Problem Noted [...] of this encounter (statuses as of 05/13/2023) [facility]* Problem Noted [...] of this encounter (statuses as of 05/13/2023) [facility]* Problem Noted [...] of this encounter (statuses as of 05/16/2023) [facility]* Problem Noted [...] of this encounter (statuses as of 05/26/2023) [facility]* Problem Noted [...] of this encounter (statuses as of 06/17/2023) [facility] Problem Noted [...] of this encounter (statuses as of 08/01/2023) [facility] Problem Noted [...] of this encounter (statuses as of 08/02/2023) [facility] Problem Noted [...] of this encounter (statuses as of 08/05/2023) [facility] Problem Noted [...] of this encounter (statuses as of 08/09/2023) [facility]* Problem Noted [...] of this encounter (statuses as of 08/10/2023) [facility] Problem Noted [...] of this encounter (statuses as of 08/11/2023) [facility] Problem Noted [...] of this encounter (statuses as of 08/11/2023) [facility] Problem Noted [...] of this encounter (statuses as of 08/12/2023) [facility] Problem Noted [...] of this encounter (statuses as of 08/18/2023) [facility] Problem Noted [...] of this encounter (statuses as of 08/23/2023) [facility] Problem Noted [...] of this encounter (statuses as of 09/01/2023) [facility] Problem Noted [...] of this encounter (statuses as of 09/02/2023) [facility] Problem Noted [...] of this encounter (statuses as of 09/05/2023) [facility] Problem Noted [...] of this encounter (statuses as of 09/05/2023) [facility] Problem Noted [...] of this encounter (statuses as of 09/09/2023) [facility] Problem Noted [...] of this encounter (statuses as of 09/13/2023) [facility] Problem Noted [...] of this encounter (statuses as of 09/16/2023) [facility] Problem Noted [...] of this encounter (statuses as of 09/16/2023) [facility] Problem Noted [...] of this encounter (statuses as of 09/19/2023) [facility] Problem Noted [...] of this encounter (statuses as of 09/27/2023) [facility] Problem Noted [...] of this encounter (statuses as of 09/27/2023) [place] [id number] History of Past illness Narrative* Problem Noted [...] of this encounter (statuses as of 10/03/2023) [facility] Problem Noted [...] of this encounter (statuses as of 10/04/2023) [facility]* Problem Noted [...] of this encounter (statuses as of 10/11/2023) [facility]* Problem Noted [...] of this encounter (statuses as of 10/12/2023) [facility]* Problem Noted [...] of this encounter (statuses as of 10/14/2023) [facility] + Plan note No data available for this section [facility] Evaluation note* Diagnosis Jaw pain- Primary History of tooth extraction, unspecified edentulism class documented in this encounter [facility] Work Phone: Evaluation note* Diagnosis Procedure not carried out- Primary Procedure not carried out for other reasons documented in this encounter [facility] note* Diagnosis Viral illness- Primary Unspecified viral infection, in conditions classified elsewhere and of unspecified site documented in this encounter [facility] note* Diagnosis Encounter for screening mammogram for breast cancer [facility] Diagnosis Encounter for long-term current use of medication- Primary Insomnia, unspecified type documented in this encounter [facility] note* Diagnosis Splinter of finger- Primary [facility] Diagnosis Insomnia, unspecified type [facility] Diagnosis Insomnia, unspecified type- Primary Encounter for immunization Need for other specified prophylactic vaccination against single bacterial disease Screening for cervical cancer Screening for malignant neoplasm of the cervix Breast pain Mastodynia Mass of lower inner quadrant of right breast Chronic right shoulder pain Pain in joint, shoulder region Encounter for well woman exam with routine gynecological exam documented in this encounter [facility] note* Diagnosis Breast pain- Primary Mastodynia Mass of lower inner quadrant of right breast Encounter for screening mammogram for breast cancer [facility] Diagnosis Mass of right breast, unspecified quadrant- Primary Mass of right breast, unspecified quadrant [facility] Diagnosis Mass of right breast, unspecified quadrant [facility] Diagnosis Mass of right breast, unspecified quadrant- Primary [facility] Diagnosis Abnormal finding on radiological examination of breast- Primary Other (abnormal) findings on radiological examination of breast [facility] Diagnosis Sore throat- Primary Acute pharyngitis URI, acute Acute upper respiratory infections of unspecified site [facility] Diagnosis Viral URI with cough- Primary Acute upper respiratory infections of unspecified site [facility] Diagnosis Panic attacks Panic 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 [facility] Diagnosis Coccydynia- Primary Other disorder of coccyx [facility] Diagnosis Panic attacks Panic 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 [facility] Diagnosis Tear of right glenoid labrum, subsequent encounter- Primary Chronic right shoulder pain Pain in joint, shoulder region [facility] Diagnosis Panic attacks Panic 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 [facility] Diagnosis Encounter for screening mammogram for breast cancer [facility] Diagnosis Tear of right glenoid labrum, subsequent encounter Chronic right shoulder pain Pain in joint, shoulder region [facility] Diagnosis Tear of right glenoid labrum, subsequent encounter Chronic right shoulder pain Pain in joint, shoulder region [facility] Diagnosis Tear of right glenoid labrum, subsequent encounter Chronic right shoulder pain Pain in joint, shoulder region [facility] Diagnosis Acute cystitis with hematuria- Primary Acute cystitis Tear of right glenoid labrum, subsequent encounter Chronic right shoulder pain Pain in joint, shoulder region [facility] Diagnosis Tear of right glenoid labrum, subsequent encounter Chronic right shoulder pain Pain in joint, shoulder region [facility] Diagnosis Tachycardia- Primary Tachycardia, unspecified [...] of the cervix [facility] Diagnosis Dysuria- Primary [facility] Diagnosis Tear of right glenoid labrum, subsequent encounter Chronic right shoulder pain Pain in joint, shoulder region [facility] Diagnosis Chronic right shoulder pain- Primary Pain in joint, shoulder region Labral tear of shoulder, degenerative, right [facility] Diagnosis Tear of right glenoid labrum, subsequent encounter Chronic right shoulder pain Pain in joint, shoulder region [facility] Diagnosis Coccydynia- Primary Other disorder of coccyx [facility] Diagnosis Tear of right glenoid labrum, subsequent encounter Chronic right shoulder pain Pain in joint, shoulder region [facility] Diagnosis Chronic right shoulder pain Pain in joint, shoulder region Labral tear of shoulder, degenerative, right [facility]* Diagnosis Flu-like symptoms- Primary Other general symptoms URI, acute Acute upper respiratory infections of unspecified site [facility] Diagnosis Tear of right glenoid labrum, subsequent encounter Chronic right shoulder pain Pain in joint, shoulder region [facility] Diagnosis Tear of right glenoid labrum, subsequent encounter- Primary Chronic right shoulder pain Pain in joint, shoulder region [facility]* Diagnosis Biceps tendinitis of right upper extremity- Primary [facility]* Diagnosis Bicipital tendinitis of right shoulder- Primary Bicipital tenosynovitis Bicipital tendinitis of right shoulder Bicipital tenosynovitis [facility] Diagnosis Acute cough- Primary Viral bronchitis Acute bronchitis Bicipital tendinitis of right shoulder Bicipital tenosynovitis documented in this encounter [facility] [...] shoulder Bicipital tenosynovitis [facility]* Diagnosis S/P shoulder surgery- Primary Other postprocedural status Tear of right glenoid labrum, subsequent encounter Chronic right shoulder pain Pain in joint, shoulder region [facility]* Diagnosis S/P shoulder surgery- Primary Other postprocedural status Tear of right glenoid labrum, subsequent encounter [facility]* Diagnosis Bicipital tendinitis of right shoulder- Primary Bicipital tenosynovitis [facility]* Diagnosis S/P shoulder surgery- Primary Other postprocedural status [facility]* Diagnosis Post-op pain- Primary Other [...] [facility]* Diagnosis Tear of right rotator [...] Primary Bicipital tenosynovitis [facility] Diagnosis Post-op pain Other acute postoperative [...] acute postoperative pain [facility]* Diagnosis Encounter for screening mammogram [...] labrum, subsequent encounter [facility] Diagnosis Pre-op exam Preoperative examination, unspecified [...] labrum, subsequent encounter [facility] Diagnosis Pre-op exam Preoperative examination, unspecified Bicipital tendonitis of right shoulder H/O chronic hepatitis Personal history of other diseases of digestive system Tobacco use disorder Marijuana use Cannabis abuse, unspecified Other migraine without status migrainosus, not intractable Congestive heart failure, unspecified HF chronicity, unspecified heart failure type (HCC) Thrush- Primary Candidiasis of mouth [facility] Diagnosis Pre-op exam Preoperative examination, unspecified [...] pain, unspecified chronicity [facility] Diagnosis Pre-op exam Preoperative examination, unspecified [...] therapeutic drug monitoring [facility] Diagnosis Pre-op exam Preoperative examination, unspecified [...] bronchitis Acute cough [facility] Diagnosis Pre-op exam Preoperative examination, unspecified Bicipital tendonitis of right shoulder H/O chronic hepatitis Personal history of other diseases of digestive system Tobacco use disorder Marijuana use Cannabis abuse, unspecified Other migraine without status migrainosus, not intractable Congestive heart failure, unspecified HF chronicity, unspecified heart failure type (HCC) Viral bronchitis Acute bronchitis Acute cough [facility] Diagnosis Acute cough Pre-op exam Preoperative examination, unspecified Bicipital tendonitis of right shoulder H/O chronic hepatitis Personal history of other diseases of digestive system Tobacco use disorder Marijuana use Cannabis abuse, unspecified Other migraine without status migrainosus, not intractable Congestive heart failure, unspecified HF chronicity, unspecified heart failure type (HCC) [facility]* Diagnosis Fever, unspecified fever cause [facility]* Diagnosis Coccydynia Other disorder of coccyx [facility] Diagnosis Splinter of finger [facility]* Diagnosis Pre-op exam Preoperative examination, [...] Other anxiety states [facility] Diagnosis Cough [facility] Diagnosis Pre-op exam Preoperative examination, unspecified [...] shoulder region, unspecified [facility] Diagnosis Pre-op exam Preoperative examination, unspecified [...] 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 [facility] Diagnosis Pre-op exam Preoperative examination, unspecified Bicipital tendonitis of right shoulder H/O chronic hepatitis Personal history of other diseases of digestive system Tobacco use disorder Marijuana use Cannabis abuse, unspecified Other migraine without status migrainosus, not intractable Congestive heart failure, unspecified HF chronicity, unspecified heart failure type (HCC) Finger pain, right- Primary Pain in limb [facility] Diagnosis Pre-op exam Preoperative examination, unspecified [...] 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 [facility] Diagnosis Pre-op exam Preoperative examination, unspecified [...] shoulder region, unspecified [facility] Diagnosis Pre-op exam Preoperative examination, unspecified [...] abuse, subsequent encounter documented in this encounter [facility] note* Diagnosis Pre-op exam Preoperative examination, unspecified [...] left upper extremity documented in this encounter [facility] note* Diagnosis Pre-op exam Preoperative examination, unspecified Bicipital tendonitis of right shoulder H/O chronic hepatitis Personal history of other diseases of digestive system Tobacco use disorder Marijuana use Cannabis abuse, unspecified Other migraine without status migrainosus, not intractable Congestive heart failure, unspecified HF chronicity, unspecified heart failure type (HCC) Rash- Primary Rash and other nonspecific skin eruption documented in this encounter [facility] note* Diagnosis Pre-op exam Preoperative examination, unspecified [...] left upper extremity documented in this encounter [facility] note* Diagnosis Pre-op exam Preoperative examination, unspecified [...] finger, initial encounter [facility] Pain in limb [facility] Diagnosis Pre-op exam Preoperative examination, unspecified Bicipital tendonitis of right shoulder H/O chronic hepatitis Personal history of other diseases of digestive system Tobacco use disorder Marijuana use Cannabis abuse, unspecified Other migraine without status migrainosus, not intractable Congestive heart failure, unspecified HF chronicity, unspecified heart failure type (HCC) Pain of right hand Pain in limb [facility] Diagnosis Pre-op exam Preoperative examination, unspecified [...] shoulder region, unspecified [facility] Diagnosis Pre-op exam Preoperative examination, unspecified [...] shoulder region, unspecified [facility] Diagnosis Pre-op exam Preoperative examination, unspecified Bicipital tendonitis of right shoulder H/O chronic hepatitis Personal history of other diseases of digestive system Tobacco use disorder Marijuana use Cannabis abuse, unspecified Other migraine without status migrainosus, not intractable Congestive heart failure, unspecified HF chronicity, unspecified heart failure type (HCC) S/P right rotator cuff repair Right shoulder pain, unspecified chronicity [facility] Diagnosis Pre-op exam Preoperative examination, unspecified [...] shoulder region, unspecified [facility] Diagnosis Pre-op exam Preoperative examination, unspecified [...] shoulder region, unspecified [facility] Diagnosis Pre-op exam Preoperative examination, unspecified Bicipital tendonitis of right shoulder H/O chronic hepatitis Personal history of other diseases of digestive system Tobacco use disorder Marijuana use Cannabis abuse, unspecified Other migraine without status migrainosus, not intractable Congestive heart failure, unspecified HF chronicity, unspecified heart failure type (HCC) Insomnia, unspecified type [facility] Diagnosis Pre-op exam Preoperative examination, unspecified [...] female climacteric states [facility] Diagnosis Pre-op exam Preoperative examination, unspecified [...] shoulder region, unspecified [facility] Diagnosis Pre-op exam Preoperative examination, unspecified Bicipital tendonitis of right shoulder H/O chronic hepatitis Personal history of other diseases of digestive system Tobacco use disorder Marijuana use Cannabis abuse, unspecified Other migraine without status migrainosus, not intractable Congestive heart failure, unspecified HF chronicity, unspecified heart failure type (HCC) Encounter for screening mammogram for breast cancer [facility] Diagnosis Pre-op exam Preoperative examination, unspecified [...] left upper extremity [facility] Diagnosis Pre-op exam Preoperative examination, unspecified [...] shoulder region, unspecified [facility] Diagnosis Pre-op exam Preoperative examination, unspecified [...] Other anxiety states [facility] Diagnosis Pre-op exam Preoperative examination, unspecified [...] rotator cuff repair [facility] Diagnosis Pre-op exam Preoperative examination, unspecified [...] shoulder region, unspecified [facility] Diagnosis Pre-op exam Preoperative examination, unspecified [...] of patient's decision [facility] Diagnosis Pre-op exam Preoperative examination, unspecified [...] shoulder region, unspecified [facility] Diagnosis Pre-op exam Preoperative examination, [...] shoulder region, unspecified [facility] Diagnosis Pre-op exam Preoperative examination, unspecified [...] rotator cuff repair [facility] Diagnosis Pre-op exam Preoperative examination, [...] Other postprocedural status [facility] Diagnosis Pre-op exam Preoperative examination, unspecified Bicipital tendonitis of right shoulder H/O chronic hepatitis Personal history of other diseases of digestive system Tobacco use disorder Marijuana use Cannabis abuse, unspecified Other migraine without status migrainosus, not intractable Congestive heart failure, unspecified HF chronicity, unspecified heart failure type (HCC) Right hip pain Pain in joint, pelvic region and thigh [facility] Diagnosis Pre-op exam Preoperative examination, unspecified [...] pain, unspecified chronicity [facility] Diagnosis Pre-op exam Preoperative examination, unspecified [...] rx as needed [facility] Diagnosis Pre-op exam Preoperative examination, unspecified [...] pain, unspecified chronicity [facility] Diagnosis Pre-op exam Preoperative examination, unspecified [...] pain, unspecified chronicity [facility] Diagnosis Pre-op exam Preoperative examination, unspecified [...] pain, unspecified chronicity [facility] Diagnosis Pre-op exam Preoperative examination, unspecified [...] Other postprocedural status [facility] Diagnosis Pre-op exam Preoperative examination, unspecified [...] shoulder region, unspecified [facility] Diagnosis Pre-op exam Preoperative examination, unspecified [...] Other postprocedural status [facility] Diagnosis Pre-op exam Preoperative examination, unspecified [...] Other postprocedural status [facility] Diagnosis Pre-op exam Preoperative examination, unspecified [...] Other postprocedural status documented in this encounter [facility] note* Diagnosis Pre-op exam Preoperative examination, unspecified [...] 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 documented in this encounter [facility] note* Diagnosis Pre-op exam Preoperative examination, unspecified [...] extent, subsequent encounter documented in this encounter [facility] note* Diagnosis Pre-op exam Preoperative examination, unspecified [...] accident, initial encounter documented in this encounter [facility] note* Diagnosis Pre-op exam Preoperative examination, unspecified [...] extent, subsequent encounter [facility] Diagnosis Pre-op exam Preoperative examination, unspecified [...] Other postprocedural status documented in this encounter [facility] note* Diagnosis Pre-op exam Preoperative examination, unspecified [...] of right shoulder [facility] Diagnosis Pre-op exam Preoperative examination, unspecified [...] membrane, left ear [facility] Diagnosis Pre-op exam Preoperative examination, unspecified [...] of right shoulder [facility] Diagnosis Pre-op exam Preoperative examination, unspecified [...] Other postprocedural status [facility] Diagnosis Pre-op exam Preoperative examination, unspecified [...] pain, unspecified chronicity documented in this encounter [facility] note* Diagnosis Pre-op exam Preoperative examination, unspecified [...] Anxiety state, unspecified [facility] Diagnosis Pre-op exam Preoperative examination, unspecified [...] shoulder S/P shoulder surgery Other postprocedural status documented in this encounter [facility] Discharge instructions* Attachments The following attachments cannot be sent through Care Everywhere. * Dental Surgery: Generic: Post-op (Kazakh) [facility] Discharge instructions No data available for this section [facility] Progress note No data available for this section [facility] Reason for referral (narrative)* Diagnostic Procedure Only (Routine) - Pending Review Specialty Diagnoses / Procedures Referred By Charity menendez Referred To Contact [facility] Diagnoses Encounter for screening mammogram for breast cancer Procedures KEYON SCREENING SCREENING MAMMOGRAPHY BI 2-VIEW BREAST INC CAD Maile Norman MD [address] [place] [address] [facility] [address] [place] [id number] Referral ID Status Reason Start Date Expiration Date Visits Requested Visits Authorized [id number] Pending Review Auto-Generat ed Referral 03/03/2022 04/02/2023 [facility] (narrative[facility] Diagnostic Procedure Only (Routine) - Authorized Specialty Diagnoses / Procedures Referred By Charity menendez Referred To Contact [facility] Diagnoses Breast pain Mass of lower inner quadrant of right breast Procedures US BREAST LTD RT US BREAST UNI REAL TIME WITH IMAGE LIMITED Karen Gaspar APRN.RECORDING ENGINEER [address] [place] [address] [facility] [address] [place] [address] Referral ID Status Reason Start Date Expiration Date Visits Requested Visits Authorized [id number] Authorized Auto-Generat ed Referral 2 06/06/2023 1 1 * Consult, Test, Treat (Routine) - Authorized Specialty Diagnoses / Procedures Referred By Charity menendez Referred To Contact Diagnoses Encounter for well woman exam with routine gynecological exam Procedures CONSULT TO COIN PURSE FRAMER OFFICE/OUTPATIENT [facility] MDM 60-74 MINUTES Karen Gaspar APRN.RECORDING ENGINEER [address] [place] [address] Referral ID Status Reason Start Date Expiration Date Visits Requested Visits Authorized [id number] Authorized PCP Requested Referral Auto-Generate d Referral 2 05/07/2023 1 1 * Diagnostic Procedure Only (Routine) - Authorized Specialty Diagnoses / Procedures Referred By Charity menendez Referred To Contact [facility] Diagnoses Breast pain Mass of lower inner quadrant of right breast Procedures KEYON DIAGNOSTIC RT DIAGNOSTIC MAMMOGRAPHY COMPUTER-AIDED DETCJ UNI Karen Gaspar APRN.RECORDING ENGINEER [address] [place] [address] [facility] [address] [place] [address] Referral ID Status Reason Start Date Expiration Date Visits Requested Visits Authorized [id number] Authorized Auto-Generat ed Referral 2 06/06/2023 1 1 * Physical Therapy (Routine) - Pending Review Specialty Diagnoses / Procedures Referred By Charity t Referred To Contact [facility] Diagnoses Chronic right shoulder pain Procedures CONSULT TO PHYSICAL THERAPY PHYSICAL THERAPY EVALUATION HIGH COMPLEX 45 MINS Karen Gaspar APRN.RECORDING ENGINEER [address] [place] [address] [facility] [address] [place] [address] Referral ID Status Reason Start Date Expiration Date Visits Requested Visits Authorized [id number] Pending Review Auto-Generat ed Referral 2 05/07/2023 1 1 * Consult, Test, Treat (Routine) - Authorized Specialty Diagnoses / Procedures Referred By Contac t Referred To Contact Orthopedics Diagnoses Chronic right shoulder pain Procedures CONSULT TO ORTHOPAEDICS OFFICE/OUTPATIENT [facility] 60-74 MINUTES Karen Gaspar APRN.CNS [address] [place] [address] Referral ID Status Reason Start Date Expiration Date Visits Requested Visits Authorized [id number] Authorized PCP Requested Referral 2 05/07/2023 1 1 [facility] Diagnostic Procedure Only (Routine) - Pending Review Specialty Diagnoses / Procedures Referred By Contac t Referred To Contact [facility] Diagnoses Breast pain Mass of lower inner quadrant of right breast Procedures KEYON DIAGNOSTIC BILAT DIAGNOSTIC MAMMOGRAPHY COMPUTER-AIDED DETCJ BI Sam Khan APRN.PUTTY REMOVER [address] [place] [address] [facility] [address] [place] [address] Referral ID Status Reason Start Date Expiration Date Visits Requested Visits Authorized [id number] Pending Review Auto-Generat ed Referral 2 06/10/2023 1 1 [facility] Diagnostic Procedure Only (Routine) - Pending Review Specialty Diagnoses / Procedures Referred By Contac t Referred To Contact [facility] Diagnoses Mass of right breast, unspecified quadrant Procedures US BIOPSY BREAST RT BX BREAST W/DEVICE 1ST LESION ULTRASOUND Kuldeep Hoffman MD [address] [place] [address] [facility] [address] [place] [address] Referral ID Status Reason Start Date Expiration Date Visits Requested Visits Authorized [id number] Pending Review Auto-Generat ed Referral 06/25/2023 1 1 [facility] Diagnostic Procedure Only (Routine) - Pending Review Specialty Diagnoses / Procedures Referred By Contac t Referred To Contact [facility] Diagnoses Abnormal finding on radiological examination of breast Procedures US BREAST LTD RT US BREAST UNI REAL TIME WITH IMAGE LIMITED Heidi Marcelino MD [address] [place] [address] [facility] [address] [place] [phone] Referral ID Status Reason Start Date Expiration Date Visits Requested Visits Authorized [id number] Pending Review Auto-Generat ed Referral 05/31/2022 06/30/2023 1 1 * Diagnostic Procedure Only (Routine) - Pending Review Specialty Diagnoses / Procedures Referred By Charity menendez Referred To Contact [facility] Diagnoses Abnormal finding on radiological examination of breast Procedures KEYON DIAGNOSTIC BILAT DIAGNOSTIC MAMMOGRAPHY COMPUTER-AIDED DETCJ BI Heidi Marcelino MD [address] [place] [address] [facility] [address] [place] [phone] Referral ID Status Reason Start Date Expiration Date Visits Requested Visits Authorized [id number] Pending Review Auto-Generat ed Referral 05/31/2022 06/30/2023 1 1 [facility] Diagnostic Procedure Only (Routine) - Closed Specialty Diagnoses / Procedures Referred By Charity t Referred To Contact XR IMAGING Diagnoses Coccydynia Procedures XR SACRUM/COCCYX 3V AP/LAT RADEX SACRUM & COCCYX MINIMUM 2 VIEWS PodlogarGayla STRATEGIC CLIENT EXECUTIVE.PUTTY REMOVER [address] [place] [address] X[facility] Imaging Referral ID Status Reason Start Date Expiration Date V isits Requested Visits Authorized [id number] Closed Auto-Generate d Referral 12/01/2022 12/31/2023 1 1 [facility] Diagnostic Procedure Only (Routine) - Pending Review Specialty Diagnoses / Procedures Referred By Charity menendez Referred To Contact [facility] Diagnoses Encounter for screening mammogram for breast cancer Procedures KEYON SCREENING SCREENING MAMMOGRAPHY BI 2-VIEW BREAST INC Maile Garcia MD [address] [place] [address] [facility] [address] [place] [address] Referral ID Status Reason Start Date Expiration Date Visits Requested Visits Authorized [id number] Pending Review Auto-Generat ed Referral 02/09/2023 03/10/2024 1 1 [facility] Diagnostic Procedure Only (Routine) - New Request Specialty Diagnoses / Procedures Referred By Charity menendez Referred To Contact [facility] Diagnoses Encounter for screening mammogram for breast cancer Procedures KEYON SCREENING W TERESITA SCREENING DIGITAL BREAST TOMOSYNTHESIS BI SCREENING MAMMOGRAPHY BI 2-VIEW BREAST INC Maile Garcia MD [address] [place] [address] [facility] [address] [facility] [place] [address] Referral ID Status Reason Start Date Expiration Date Visits Requested Visits Authorized [id number] New Request Auto-Generat ed Referral 01/11/2024 02/09/2025 1 1 [facility] Diagnostic Procedure Only (Routine) - Closed Specialty Diagnoses / Procedures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 Date Maile Norman MD [address] [place] [address] PCP - General Internal Medicine 02/24/12 Grocery Checker Relationship Specialty Start Date End Date Maile Norman MD [address] [place] [address] PCP - General Internal Medicine 02/24/12 Grocery Checker Relationship Specialty Start Date End Date Maile Norman MD [address] [place] [address] PCP - General Internal Medicine 02/24/12 Charles Elliott APRN.PUTTY REMOVER [address] [place] [address] Referring Pain Management 05/18/23 Grocery Checker Relationship Specialty Start Date End Date Maile Norman MD [address] [place], [place] 618711 PCP - General Internal Medicine 02/24/12 Prebish, Charles, STRATEGIC CLIENT EXECUTIVE.PUTTY REMOVER [address] [place] [address] Referring Pain Management 05/18/23 Grocery Checker Relationship Specialty Start Date End Date Maile Norman MD [address] [place], [place] 332751 PCP - General Internal Medicine 02/24/12 Prebish, Charles, STRATEGIC CLIENT EXECUTIVE.PUTTY REMOVER [address] [place] [address] Referring Pain Management 05/18/23 Grocery Checker Relationship Specialty Start Date End Date Maile Norman MD [address] [place], [place] 121741 PCP - General Internal Medicine 02/24/12 Prebish, Charles, STRATEGIC CLIENT EXECUTIVE.PUTTY REMOVER [address] [place] [address] Referring Pain Management 05/18/23 Grocery Checker Relationship Specialty Start Date End Date Maile Norman MD [address] [place], [place] 782651 PCP - General Internal Medicine 02/24/12 Prebish, Charles, STRATEGIC CLIENT EXECUTIVE.PUTTY REMOVER [address] [place] [address] Referring Pain Management 05/18/23 Grocery Checker Relationship Specialty Start Date End Date Maile Norman MD [address] [place], [place] 658741 PCP - General Internal Medicine 02/24/12 Prebish, Charles, STRATEGIC CLIENT EXECUTIVE.PUTTY REMOVER [address] [place] [address] Referring Pain Management 05/18/23 Grocery Checker Relationship Specialty Start Date End Date Maile Norman MD [address] [place], [place] 054351 PCP - General Internal Medicine 02/24/12 Prebish, Charles, STRATEGIC CLIENT EXECUTIVE.PUTTY REMOVER [address] [place] [address] Referring Pain Management 05/18/23 Grocery Checker Relationship Specialty Start Date End Date Maile Norman MD [address] [place], [place] 366921 PCP - General Internal Medicine 02/24/12 Prebish, Charles, STRATEGIC CLIENT EXECUTIVE.PUTTY REMOVER [address] [place] [address] Referring Pain Management 05/18/23 Grocery Checker Relationship Specialty Start Date End Date Maile Norman MD [address] [place], [place] 988541 PCP - General Internal Medicine 02/24/12 Prebish, Charles, STRATEGIC CLIENT EXECUTIVE.PUTTY REMOVER [address] [place] [address] Referring Pain Management 05/18/23 Grocery Checker Relationship Specialty Start Date End Date Maile Norman MD [address] [place], [place] 403231 PCP - General Internal Medicine 02/24/12 Prebish, Charles, STRATEGIC CLIENT EXECUTIVE.PUTTY REMOVER [address] [place] [address] Referring Pain Management 05/18/23 Grocery Checker Relationship Specialty Start Date End Date Maile Norman MD [address] [place], [place] 157711 PCP - General Internal Medicine 02/24/12 Prebish, Charles, STRATEGIC CLIENT EXECUTIVE.PUTTY REMOVER [address] [place] [address] Referring Pain Management 05/18/23 Grocery Checker Relationship Specialty Start Date End Date Maile Norman MD [address] [place] [address] PCP - General Internal Medicine 02/24/12 Prebish, Charles, STRATEGIC CLIENT EXECUTIVE.PUTTY REMOVER [address] [place] [address] Referring Pain Management 05/18/23 Grocery Checker Relationship Specialty Start Date End Date Maile Norman MD [address] [place], [place] 245971 PCP - General Internal Medicine 02/24/12 PrelucyshCharles APRN.PUTTY REMOVER [address] [place] [address] Referring Pain Management 05/18/23 Grocery Checker Relationship Specialty Start Date End Date Maile Norman MD [address] [place] [address] PCP - General Internal Medicine 02/24/12 PrelucyshCharles APRN.PUTTY REMOVER [address] [place] [address] Referring Pain Management 05/18/23 Grocery Checker Relationship Specialty Start Date End Date Maile Norman MD [address] [place] [address] PCP - General Internal Medicine 02/24/12 GurindershCharles APRN.PUTTY REMOVER [address] [place] [address] Referring Pain Management 05/18/23 Grocery Checker Relationship Specialty Start Date End Date Maile Norman MD [address] [place] [address] PCP - General Internal Medicine 02/24/12 GurindershCharles APRN.PUTTY REMOVER [address] [place] [address] Referring Pain Management 05/18/23 Grocery Checker Relationship Specialty Start Date End Date Maile Norman MD [address] [place] [address] PCP - General Internal Medicine 02/24/12 Charles Elliott APRN.PUTTY REMOVER [address] [place] [address] Referring Pain Management 05/18/23 Grocery Checker Relationship Specialty Start Date End Date Maile Norman MD [address] [place], [place] 887811 PCP - General Internal Medicine 02/24/12 Charles Elliott APRN.PUTTY REMOVER [address] [place] [address] Referring Pain Management 05/18/23 Grocery Checker Relationship Specialty Start Date End Date Maile Norman MD [address] [place], [place] 060431 PCP - General Internal Medicine 02/24/12 Charles Elliott, STRATEGIC CLIENT EXECUTIVE.PUTTY REMOVER [address] [place] [address] Referring Pain Management 05/18/23 Grocery Checker Relationship Specialty Start Date End Date Maile Norman MD [address] [place] [address] PCP - General Internal Medicine 02/24/12 Charles Elliott, STRATEGIC CLIENT EXECUTIVE.PUTTY REMOVER [address] [place] [address] Referring Pain Management 05/18/23 Grocery Checker Relationship Specialty Start Date End Date Maile Norman MD [address] [place] [address] PCP - General Internal Medicine 02/24/12 Charles Elliott APRN.PUTTY REMOVER [address] [place] [address] Referring Pain Management 05/18/23 Grocery Checker Relationship Specialty Start Date End Date Maile Norman MD [address] [place] [address] PCP - General Internal Medicine 02/24/12 Charles Elliott APRN.PUTTY REMOVER [address] [place] [address] Referring Pain Management 05/18/23 Grocery Checker Relationship Specialty Start Date End Date Maile Norman MD [address] [place], [place] 884471 PCP - General Internal Medicine 02/24/12 Charles Elliott, RIGOBERTO.PUTTY REMOVER [address] [place] [address] Referring Pain Management 05/18/23 Grocery Checker Relationship Specialty Start Date End Date Maile Norman MD [address] [place], [place] 283031 PCP - General Internal Medicine 02/24/12 Charles Elliott APRN.PUTTY REMOVER [address] [place] [address] Referring Pain Management 05/18/23 Grocery Checker Relationship Specialty Start Date End Date Maile Norman MD [address] [place] [address] PCP - General Internal Medicine 02/24/12 Presh, Charles, STRATEGIC CLIENT EXECUTIVE.PUTTY REMOVER [address] [place] [address] Referring Pain Management 05/18/23 Grocery Checker Relationship Specialty Start Date End Date Maile Norman MD [address] [place], [place] 562591 PCP - General Internal Medicine 02/24/12 [facility], Charles, STRATEGIC CLIENT EXECUTIVE.PUTTY REMOVER [address] [place] [address] Referring Pain Management 05/18/23 Grocery Checker Relationship Specialty Start Date End Date Maile Norman MD [address] [place] [address] PCP - General Internal Medicine 02/24/12 [facility], Charles, STRATEGIC CLIENT EXECUTIVE.PUTTY REMOVER [address] [place] [address] Referring Pain Management 05/18/23 Grocery Checker Relationship Specialty Start Date End Date Maile Norman MD [address] [place] [address] PCP - General Internal Medicine 02/24/12 Presh, Charles, STRATEGIC CLIENT EXECUTIVE.PUTTY REMOVER [address] [place] [address] Referring Pain Management 05/18/23 Grocery Checker Relationship Specialty Start Date End Date Maile Norman MD [address] [place], [place] 562601 PCP - General Internal Medicine 02/24/12 Prebish, Charles, STRATEGIC CLIENT EXECUTIVE.PUTTY REMOVER [address] [place] [address] Referring Pain Management 05/18/23 Grocery Checker Relationship Specialty Start Date End Date Maile Norman MD [address] [place], [place] 983051 PCP - General Internal Medicine 02/24/12 Prebish, Charles, STRATEGIC CLIENT EXECUTIVE.PUTTY REMOVER [address] [place] [address] Referring Pain Management 05/18/23 Grocery Checker Relationship Specialty Start Date End Date Maile Norman MD [address] [place], [place] 917561 PCP - General Internal Medicine 02/24/12 Prebish, Charles, STRATEGIC CLIENT EXECUTIVE.PUTTY REMOVER [address] [place] [address] Referring Pain Management 05/18/23 Grocery Checker Relationship Specialty Start Date End Date Maile Norman MD [address] [place], [place] 459761 PCP - General Internal Medicine 02/24/12 Prebish, Charles, STRATEGIC CLIENT EXECUTIVE.PUTTY REMOVER [address] [place] [address] Referring Pain Management 05/18/23 Grocery Checker Relationship Specialty Start Date End Date Maile Norman MD [address] [place], [place] 485601 PCP - General Internal Medicine 02/24/12 Grocery Checker Relationship Specialty Start Date End Date Maile Norman MD [address] [place], [place] 801341 PCP - General Internal Medicine 02/24/12 Grocery Checker Relationship Specialty Start Date End Date Maile Norman MD [address] [place] [address] PCP - General Internal Medicine 02/24/12 Charles Elliott APRN.PUTTY REMOVER [address] [place] [address] Referring Pain Management 05/18/23 Grocery Checker Relationship Specialty Start Date End Date Maile Norman MD [address] [place], [place] 558881 PCP - General Internal Medicine 02/24/12 Charles Elliott APRN.PUTTY REMOVER [address] [place] [address] Referring Pain Management 05/18/23 Grocery Checker Relationship Specialty Start Date End Date Maile Norman MD [address] [place] [address] PCP - General Internal Medicine 02/24/12 Charles Elliott APRN.PUTTY REMOVER [address] [place] [address] Referring Pain Management 05/18/23 Grocery Checker Relationship Specialty Start Date End Date Maile Norman MD [address] [place], [place] 581821 PCP - General Internal Medicine 02/24/12 Prelucysh, Charles, STRATEGIC CLIENT EXECUTIVE.PUTTY REMOVER [address] [place] [address] Referring Pain Management 05/18/23 Grocery Checker Relationship Specialty Start Date End Date Maile Norman MD [address] [place], [place] 379601 PCP - General Internal Medicine 02/24/12 Prelucysh, Charles, STRATEGIC CLIENT EXECUTIVE.PUTTY REMOVER [address] [place] [address] Referring Pain Management 05/18/23 Grocery Checker Relationship Specialty Start Date End Date Maile Norman MD [address] [place], [place] 663021 PCP - General Internal Medicine 02/24/12 Prebish, Charles, STRATEGIC CLIENT EXECUTIVE.PUTTY REMOVER [address] [place] [address] Referring Pain Management 05/18/23 Grocery Checker Relationship Specialty Start Date End Date Maile Norman MD [address] [place] [address] PCP - General Internal Medicine 02/24/12 Prebish, Charles, STRATEGIC CLIENT EXECUTIVE.PUTTY REMOVER [address] [place] [address] Referring Pain Management 05/18/23 Grocery Checker Relationship Specialty Start Date End Date Maile Norman MD [address] [place], [place] 392051 PCP - General Internal Medicine 02/24/12 Prebish, Charles, STRATEGIC CLIENT EXECUTIVE.PUTTY REMOVER [address] [place] [address] Referring Pain Management 05/18/23 Grocery Checker Relationship Specialty Start Date End Date Maile Norman MD [address] [place], [place] 938411 PCP - General Internal Medicine 02/24/12 Prebish, Charles, STRATEGIC CLIENT EXECUTIVE.PUTTY REMOVER [address] [place] [address] Referring Pain Management 05/18/23 Grocery Checker Relationship Specialty Start Date End Date Maile Norman MD [address] [place], [place] 671461 PCP - General Internal Medicine 02/24/12 Prebish, Charles, STRATEGIC CLIENT EXECUTIVE.PUTTY REMOVER [address] [place] [address] Referring Pain Management 05/18/23 Grocery Checker Relationship Specialty Start Date End Date Maile Norman MD [address] [place], [place] 996491 PCP - General Internal Medicine 02/24/12 Prebish, Charles, STRATEGIC CLIENT EXECUTIVE.PUTTY REMOVER [address] [place], [place] 029565 Referring Pain Management 05/18/23 Grocery Checker Relationship Specialty Start Date End Date Maile Norman MD [address] [place], [place] 723361 PCP - General Internal Medicine 02/24/12 Charles Elliott APRN.PUTTY REMOVER [address] [place], [place] 73183685 Referring Pain Management 05/18/23 Karen Gaspar APRN.RECORDING ENGINEER [address] [place], [place] 636831 [facility] 06/04/24 Sam Khan APRN.PUTTY REMOVER [address] [place] [address] 497901 [facility] 06/04/24 Grocery Checker Relationship Specialty Start Date End Date Maile Norman MD [address] [place], [place] 305771 PCP - General Internal Medicine 02/24/12 Charles Elliott, STRATEGIC CLIENT EXECUTIVE.PUTTY REMOVER [address] [place], [place] 019695 Referring Pain Management 05/18/23 Karen Gaspar APRN.RECORDING ENGINEER [address] [place] [address] [facility] 06/04/24 Sam Khan APRN.PUTTY REMOVER [address] [place], [place] 470961 [facility] 06/04/24 Grocery Checker Relationship Specialty Start Date End Date Maile Norman MD [address] [place], [place] 470981 PCP - General Internal Medicine 02/24/12 Charles Elliott APRN.PUTTY REMOVER [address] [place], [place] 324005 Referring Pain Management 05/18/23 Karen Gaspar APRN.RECORDING ENGINEER [address] [place] [address] 167311 [facility] 06/04/24 Sam Khan APRN.PUTTY REMOVER [address] [place] [address] 353931 [facility] 06/04/24 Grocery Checker Relationship Specialty Start Date End Date Maile Norman MD [facility] [place], [place] 568831 PCP - General Internal Medicine 02/24/12 Charles Elliott APRN.PUTTY REMOVER [facility] [place] [address] Referring Pain Management 05/18/23 Karen Gaspar APRN.RECORDING ENGINEER [facility] [place] [address] [facility] 06/04/24 Sam Khan APRN.PUTTY REMOVER [address] [place] [address] 765101 [facility] 06/04/24 Grocery Checker Relationship Specialty Start Date End Date Maile Norman MD [address] [place], [place] 102971 PCP - General Internal Medicine 02/24/12 Charles Elliott APRN.PUTTY REMOVER [address] [place] [address] Referring Pain Management 05/18/23 Karen Gaspar STRATEGIC CLIENT EXECUTIVE.RECORDING ENGINEER [address] [place] [address] [facility] 06/04/24 Sam Khan STRATEGIC CLIENT EXECUTIVE.PUTTY REMOVER [address] [place] [address] [facility] 06/04/24 Grocery Checker Relationship Specialty Start Date End Date Maile Norman MD [address] [place], [place] 800451 PCP - General Internal Medicine 02/24/12 Charles Elliott, STRATEGIC CLIENT EXECUTIVE.PUTTY REMOVER [address] [place] [address] Referring Pain Management 05/18/23 Karen Gaspar STRATEGIC CLIENT EXECUTIVE.RECORDING ENGINEER [address] [place], [place] 125871 [facility] 06/04/24 Sam Khan STRATEGIC CLIENT EXECUTIVE.PUTTY REMOVER [address] [place], [place] 790011 [facility] 06/04/24 Grocery Checker Relationship Specialty Start Date End Date Maile Norman MD [address] [place], [place] 690401 PCP - General Internal Medicine 02/24/12 Charles Elliott, STRATEGIC CLIENT EXECUTIVE.PUTTY REMOVER [address] [place] [address] Referring Pain Management 05/18/23 Karen Gaspar STRATEGIC CLIENT EXECUTIVE.RECORDING ENGINEER [address] [place], [place] 992281 [facility] 06/04/24 Sam Khan STRATEGIC CLIENT EXECUTIVE.PUTTY REMOVER [address] [place] [address] [facility] 06/04/24 Grocery Checker Relationship Specialty Start Date End Date Maile Norman MD [address] [place], [place] 222641 PCP - General Internal Medicine 02/24/12 Charles Elliott, STRATEGIC CLIENT EXECUTIVE.PUTTY REMOVER [address] [place] [address] Referring Pain Management 05/18/23 Karen Gaspar, STRATEGIC CLIENT EXECUTIVE.RECORDING ENGINEER [address] [place], [place] 951851 [facility] 06/04/24 Sam Khan STRATEGIC CLIENT EXECUTIVE.PUTTY REMOVER [address] [place], [place] 682551 [facility] 06/04/24 Grocery Checker Relationship Specialty Start Date End Date Maile Norman MD [address] [place], [place] 211791 PCP - General Internal Medicine 02/24/12 Charles Elliott APRN.PUTTY REMOVER [address] [place] [address] Referring Pain Management 05/18/23 Karen Gaspar STRATEGIC CLIENT EXECUTIVE.RECORDING ENGINEER [address] [place], [place] 089201 [facility] 06/04/24 Sam Khan STRATEGIC CLIENT EXECUTIVE.PUTTY REMOVER [address] [place] [address] [id number] [facility] 06/04/24 Grocery Checker Relationship Specialty Start Date End Date Maile Norman MD [address] [place], [place] 645991 PCP - General Internal Medicine 02/24/12 Charles Elliott STRATEGIC CLIENT EXECUTIVE.PUTTY REMOVER [address] [place] [address] Referring Pain Management 05/18/23 Karen Gaspar, STRATEGIC CLIENT EXECUTIVE.RECORDING ENGINEER [address] [place], [place] 298841 [facility] 06/04/24 Sam Khan STRATEGIC CLIENT EXECUTIVE.PUTTY REMOVER [address] [place], [place] 053151 [facility] 06/04/24 Grocery Checker Relationship Specialty Start Date End Date Maile Norman MD [address] [place], [place] 862631 PCP - General Internal Medicine 02/24/12 Charles Elliott APRN.PUTTY REMOVER [address] [place] [address] Referring Pain Management 05/18/23 Karen Gaspar APRN.RECORDING ENGINEER [address] [place] [address] [facility] 06/04/24 Sam Khan APRN.PUTTY REMOVER [address] [place] [address] [facility] 06/04/24 Grocery Checker Relationship Specialty Start Date End Date Maile Norman MD [address] [place] [address] PCP - General Internal Medicine 02/24/12 Charles Elliott APRN.PUTTY REMOVER [address] [place] [address] Referring Pain Management 05/18/23 Karen Gaspar APRN.RECORDING ENGINEER [address] [place] [address] [facility] 06/04/24 Sam Khan APRN.PUTTY REMOVER [address] [place] [address] [facility] 06/04/24 Grocery Checker Relationship Specialty Start Date End Date Maile Norman MD [address] [place] [address] PCP - General Internal Medicine 02/24/12 Charles Elliott APRN.PUTTY REMOVER [address] [place] [address] Referring Pain Management 05/18/23 Karen Gaspar APRN.RECORDING ENGINEER [address] [place] [address] [facility] 06/04/24 Sam Khan APRN.PUTTY REMOVER [address] [place] [address] [facility] 06/04/24 Grocery Checker Relationship Specialty Start Date End Date Maile Norman MD [address] [place] [address] PCP - General Internal Medicine 02/24/12 Charles Elliott APRN.PUTTY REMOVER [address] [place] [address] Referring Pain Management 05/18/23 Karen Gaspar APRN.RECORDING ENGINEER [address] [place] [address] [facility] 06/04/24 Sam Khan STRATEGIC CLIENT EXECUTIVE.PUTTY REMOVER [facility] [place], [place] [address]3281 [facility] 06/04/24 Grocery Checker Relationship Specialty Start Date End Date Maile Norman MD [address] [place], [place] 809961 PCP - General Internal Medicine 02/24/12 Charles Elliott APRN.PUTTY REMOVER [address] [place] [address] Referring Pain Management 05/18/23 Karen Gaspar APRN.RECORDING ENGINEER [address] [place], [place] 427261 [facility] 06/04/24 Sam Khan APRN.PUTTY REMOVER [address] [place], [place] [id number] [facility] 06/04/24 Grocery Checker Relationship Specialty Start Date End Date Maile Norman MD [address] [place], [place] 807021 PCP - General Internal Medicine 02/24/12 Charles Elliott APRN.PUTTY REMOVER [address] [place] [address] Referring Pain Management 05/18/23 Karen Gaspar APRN.RECORDING ENGINEER [address] [place], [place] 516171 [facility] 06/04/24 Sam Khan STRATEGIC CLIENT EXECUTIVE.PUTTY REMOVER [address] [place], [place] [address] [facility] 06/04/24 Grocery Checker Relationship Specialty Start Date End Date Maile Norman MD [address] [place], [place] 033991 PCP - General Internal Medicine 02/24/12 Charles Elliott APRN.PUTTY REMOVER [address] [place] [address] Referring Pain Management 05/18/23 Karen Gaspar APRN.RECORDING ENGINEER [address] [place] [address] [facility] 06/04/24 Sam Khan APRN.PUTTY REMOVER [address] [place] [address] [facility] 06/04/24 Grocery Checker Relationship Specialty Start Date End Date Maile Norman MD [address] [place] [address] PCP - General Internal Medicine 02/24/12 Charles Elliott APRN.PUTTY REMOVER [address] [place] [address] Referring Pain Management 05/18/23 Karen Gaspar APRN.RECORDING ENGINEER [address] [place] [address] [facility] 06/04/24 Sam Khan STRATEGIC CLIENT EXECUTIVE.PUTTY REMOVER [address] [place] [address] [facility] 06/04/24 Grocery Checker Relationship Specialty Start Date End Date Maile Norman MD [address] [place] [address] PCP - General Internal Medicine 02/24/12 Charles Elliott APRN.PUTTY REMOVER [address] [place] [address] Referring Pain Management 05/18/23 Karen Gaspar APRN.RECORDING ENGINEER [address] [place] [address] [facility] 06/04/24 Sam Khan APRN.PUTTY REMOVER [address] [place] [address] [facility] 09/18/24 Grocery Checker Relationship Specialty Start Date End Date Maile Norman MD [address] [place] [address] PCP - General Internal Medicine 02/24/12 Charles Elliott, STRATEGIC CLIENT EXECUTIVE.PUTTY REMOVER [address] [place] [address] Referring Pain Management 05/18/23 Karen Gaspar APRN.RECORDING ENGINEER [address] [place] [address] [facility] 06/04/24 Sam Khan APRN.PUTTY REMOVER [address] [place] [address] [facility] 09/18/24 Grocery Checker Relationship Specialty Start Date End Date Maile Norman MD [address] [place] [address] PCP - General Internal Medicine 02/24/12 Charles Elliott, STRATEGIC CLIENT EXECUTIVE.PUTTY REMOVER [address] [place] [address] Referring Pain Management 05/18/23 Karen Gaspar APRN.RECORDING ENGINEER [address] [place] [address] [facility] 06/04/24 Sam Khan APRN.PUTTY REMOVER [address] [place] [address] [facility] 09/18/24 Grocery Checker Relationship Specialty Start Date End Date Maile Norman MD [address] [place], [place] 025861 PCP - General Internal Medicine 02/24/12 Charles Elliott APRN.PUTTY REMOVER [address] [place] [address] Referring Pain Management 05/18/23 Karen Gaspar APRN.RECORDING ENGINEER [address] [place] [address] [facility] 06/04/24 Sam Khan APRN.PUTTY REMOVER [address] [place] [address] [facility] 09/18/24 Grocery Checker Relationship Specialty Start Date End Date Maile Norman MD [address] [place], [place] 422811 PCP - General Internal Medicine 02/24/12 Charles Elliott APRN.PUTTY REMOVER [address] [place] [address] Referring Pain Management 05/18/23 Karen Gaspar APRN.RECORDING ENGINEER [address] [place] [address] [facility] 06/04/24 Sam Khan APRN.PUTTY REMOVER [address] [place] [address] [facility] 09/18/24 Grocery Checker Relationship Specialty Start Date End Date Maile Norman MD [address] [place] [address] PCP - General Internal Medicine 02/24/12 Charles Elliott APRN.PUTTY REMOVER [address] [place] [address] Referring Pain Management 05/18/23 Karen Gaspar STRATEGIC CLIENT EXECUTIVE.RECORDING ENGINEER [address] [place] [address] [facility] 06/04/24 Sam Khan STRATEGIC CLIENT EXECUTIVE.PUTTY REMOVER [address] [place] [address] [facility] 09/18/24 Grocery Checker Relationship Specialty Start Date End Date Maile Norman MD [address] [place], [place] 228401 PCP - General Internal Medicine 02/24/12 Charles Elliott APRN.PUTTY REMOVER [address] [place] [address] Referring Pain Management 05/18/23 Karen Gaspar STRATEGIC CLIENT EXECUTIVE.RECORDING ENGINEER [address] [place], [place] 767891 [facility] 06/04/24 Sam Khan STRATEGIC CLIENT EXECUTIVE.PUTTY REMOVER [address] [place], [place] 594911 [facility] 09/18/24 Grocery Checker Relationship Specialty Start Date End Date Maile Norman MD [address] [place], [place] 367301 PCP - General Internal Medicine 02/24/12 Charles Elliott APRN.PUTTY REMOVER [address] [place], [place] 729585 Referring Pain Management 05/18/23 Karen Gaspar STRATEGIC CLIENT EXECUTIVE.RECORDING ENGINEER [address] [place], [place] 780671 [facility] Internal Medicine 06/04/24 Sam Khan STRATEGIC CLIENT EXECUTIVE.PUTTY REMOVER [address] [place], [place] 538111 [facility] Internal Medicine 09/18/24 Grocery Checker Relationship Specialty Start Date End Date Maile Norman MD [address] [place], [place] 554401 PCP - General Internal Medicine 02/24/12 Charles Elliott, STRATEGIC CLIENT EXECUTIVE.PUTTY REMOVER [address] [place] [address] Referring Pain Management 05/18/23 Karen Gaspar STRATEGIC CLIENT EXECUTIVE.RECORDING ENGINEER [address] [place], [place] 427211 [facility] 06/04/24 Sam Khan STRATEGIC CLIENT EXECUTIVE.PUTTY REMOVER [address] [place] [address] [facility] 09/18/24 Grocery Checker Relationship Specialty Start Date End Date Maile Norman MD [address] [place], [place] 392931 PCP - General Internal Medicine 02/24/12 Charles Elliott APRN.PUTTY REMOVER [address] [place], [place] [id number] Referring Pain Management 05/18/23 Karen Gaspar STRATEGIC CLIENT EXECUTIVE.RECORDING ENGINEER [address] [place], [place] 727941 [facility] Internal Medicine 06/04/24 Sam Khan STRATEGIC CLIENT EXECUTIVE.PUTTY REMOVER [address] [place] [address] [facility] 09/18/24 Grocery Checker Relationship Specialty Start Date End Date Maile Norman MD [address] [place], [place] 545851 PCP - General Internal Medicine 02/24/12 Charles Elliott APRN.PUTTY REMOVER [address] [place] [address] Referring Pain Management 05/18/23 Karen Gaspar APRN.RECORDING ENGINEER [address] [place] [address] [facility] 06/04/24 Sam Khan APRN.PUTTY REMOVER [address] [place] [address] [facility] 09/18/24 Grocery Checker Relationship Specialty Start Date End Date Maile Norman MD [address] [place] [address] PCP - General Internal Medicine 02/24/12 Charles Elliott APRN.PUTTY REMOVER [address] [place], [place] 469565 Referring Pain Management 05/18/23 Karen Gaspar APRN.RECORDING ENGINEER [address] [place] [address] [facility] 06/04/24 Sam Khan APRN.PUTTY REMOVER [address] [place] [address] [facility] 09/18/24 Grocery Checker Relationship Specialty Start Date End Date Maile Norman MD [address] [place] [address] PCP - General Internal Medicine 02/24/12 Charles Elliott APRN.PUTTY REMOVER [address] [place] [address] Referring Pain Management 05/18/23 Karen Gaspar APRN.RECORDING ENGINEER [address] [place] [address] [facility] 06/04/24 Sam Khan APRN.PUTTY REMOVER [address] [place] [address] [facility] 09/18/24 Grocery Checker Relationship Specialty Start Date End Date Maile Norman MD [address] [place] [address] PCP - General Internal Medicine 02/24/12 Charles Elliott APRN.PUTTY REMOVER [address] [place], [place] 219915 Referring Pain Management 05/18/23 Karen Gaspar APRN.RECORDING ENGINEER [address] [facility] [place] [address] [facility] 06/04/24 Sam Khan APRN.PUTTY REMOVER [address] [facility] [place] [address] [facility] 09/18/24 Grocery Checker Relationship Specialty Start Date End Date Maile Norman MD [address] [facility] [place] [address] PCP - General Internal Medicine 02/24/12 Charles Elliott APRN.PUTTY REMOVER [address] [place], [place] 619845 Referring Pain Management 05/18/23 Karen Gaspar APRN.RECORDING ENGINEER [address] [place] [address] [facility] 06/04/24 Sam Khan APRN.PUTTY REMOVER [address] [place], [place] 242211 [facility] 09/18/24 Grocery Checker Relationship Specialty Start Date End Date Maile Norman MD [address] [place], [place] 328711 PCP - General Internal Medicine 02/24/12 Charles Elliott STRATEGIC CLIENT EXECUTIVE.PUTTY REMOVER [address] [place], [place] [id number] Referring Pain Management 05/18/23 Karen Gaspar APRN.RECORDING ENGINEER [address] [place] [address] [facility] 06/04/24 Sam Khan APRN.PUTTY REMOVER [address] [place], [place] 752361 [facility] Internal Medicine 09/18/24 Grocery Checker Relationship Specialty Start Date End Date Maile Norman MD [address] [place], [place] 332391 PCP - General Internal Medicine 02/24/12 Charles Elliott STRATEGIC CLIENT EXECUTIVE.PUTTY REMOVER [address] [place], [place] 822605 Referring Pain Management 05/18/23 Karen Gaspar APRN.RECORDING ENGINEER [address] [place], [place] 357311 [facility] 06/04/24 Sam Khan APRN.PUTTY REMOVER [address] [place] [address] [facility] 09/18/24 Grocery Checker Relationship Specialty Start Date End Date Maile Norman MD [address] [place], [place] 735411 PCP - General Internal Medicine 02/24/12 Charles Elliott APRN.PUTTY REMOVER [address] [place], [place] 111155 Referring Pain Management 05/18/23 Karen Gaspar APRN.RECORDING ENGINEER [address] [place] [address] [facility] 06/04/24 Sam Khan APRN.PUTTY REMOVER [address] [place] [address] [facility] 09/18/24 Grocery Checker Relationship Specialty Start Date End Date Maile Norman MD [address] [place], [place] 615971 PCP - General Internal Medicine 02/24/12 Charles Elliott APRN.PUTTY REMOVER [address] [place] [address] Referring Pain Management 05/18/23 Sam Khan APRN.PUTTY REMOVER [address] [place] [address] [facility] 09/18/24 Karen Gaspar APRN.RECORDING ENGINEER [address] [place] [address] [facility] 11/14/24 Grocery Checker Relationship Specialty Start Date End Date Maile Norman MD [address] [place], [place] 416781 PCP - General Internal Medicine 02/24/12 Charles Elliott APRN.PUTTY REMOVER [address] [place], [place] 436515 Referring Pain Management 05/18/23 Sam Khan APRN.PUTTY REMOVER [address] [place] [address] [facility] 09/18/24 Karen Gaspar APRN.RECORDING ENGINEER [address] [place] [address] [facility] 11/14/24 Grocery Checker Relationship Specialty Start Date End Date Maile Norman MD [address] [place], [place] 948071 PCP - General Internal Medicine 02/24/12 Charles Elliott APRN.PUTTY REMOVER [address] [place] [address] Referring Pain Management 05/18/23 Sam Khan APRN.PUTTY REMOVER [address] [place] [address] [facility] 09/18/24 Karen Gaspar APRN.RECORDING ENGINEER [address] [place] [address] [facility] 11/14/24 Grocery Checker Relationship Specialty Start Date End Date Maile Norman MD [address] [place] [address] PCP - General Internal Medicine 02/24/12 Charles Elliott APRN.PUTTY REMOVER [address] [place] [address] Referring Pain Management 05/18/23 Sam Khan APRN.PUTTY REMOVER [address] [place] [address] [facility] 09/18/24 Karen Gaspar APRN.RECORDING ENGINEER [address] [place] [address] [facility] 11/14/24 Grocery Checker Relationship Specialty Start Date End Date Maile Norman MD [address] [place], [place] 137871 PCP - General Internal Medicine 02/24/12 Charles Elliott APRN.PUTTY REMOVER [address] [place] [address] Referring Pain Management 05/18/23 Sam Khan APRN.PUTTY REMOVER [address] [place], [place] 523371 [facility] 09/18/24 Karen Gaspar APRN.RECORDING ENGINEER [address] [place], [place] 385581 [facility] 11/14/24 Grocery Checker Relationship Specialty Start Date End Date Maile Norman MD [address] [place], [place] 067011 PCP - General Internal Medicine 02/24/12 Charles Elliott APRN.PUTTY REMOVER [address] [place] [address] Referring Pain Management 05/18/23 Sam Khan STRATEGIC CLIENT EXECUTIVE.PUTTY REMOVER [address] [place], [place] 675811 [facility] 09/18/24 Karen Gaspar, STRATEGIC CLIENT EXECUTIVE.RECORDING ENGINEER [address] [place], [place] 662041 [facility] 11/14/24 Grocery Checker Relationship Specialty Start Date End Date Maile Norman MD [address] [place], [place] 989531 PCP - General Internal Medicine 02/24/12 Charles Elliott, STRATEGIC CLIENT EXECUTIVE.PUTTY REMOVER [address] [place] [address] Referring Pain Management 05/18/23 Sam Khan STRATEGIC CLIENT EXECUTIVE.PUTTY REMOVER [address] [place], [place] 079601 [facility] 09/18/24 Karen Gaspar, STRATEGIC CLIENT EXECUTIVE.RECORDING ENGINEER [address] [place], [place] 341861 [facility] 11/14/24 Grocery Checker Relationship Specialty Start Date End Date Maile Norman MD [address] [place], [place] 585721 PCP - General Internal Medicine 02/24/12 Charles Elliott APRN.PUTTY REMOVER [address] [place] [address] Referring Pain Management 05/18/23 Sam Khan STRATEGIC CLIENT EXECUTIVE.PUTTY REMOVER [address] [place], [place] 133011 [facility] 09/18/24 Karen Gaspar APRN.RECORDING ENGINEER [address] [place], [place] [address] [facility] 11/14/24 Source Comments (unrecognize d section and content) In the event this informatio n is protected by the Federal Confidentiality of Alcohol and Drug Abuse Patient Records regulations: The Federal rules restrict any use of the information to criminally investigate or prosecute any alcohol or drug abuse patient.[facility] HospitalIn the event this information is protected by the Federal Confidentiality of Alcohol and Drug Abuse Patient Records regulations: The Federal rules restrict any use of the information to criminally investigate or prosecute any alcohol or drug abuse patient.[facility] HospitalIn the event this information is protected by the Federal Confidentiality of Alcohol and Drug Abuse Patient Records regulations: The Federal rules restrict any use of the information to criminally investigate or prosecute any alcohol or drug abuse patient.[facility] HospitalIn the event this information is protected by the Federal Confidentiality of Alcohol and Drug Abuse Patient Records regulations: The Federal rules restrict any use of the information to criminally investigate or prosecute any alcohol or drug abuse patient.[facility] HospitalIn the event this information is protected by the Federal Confidentiality of Alcohol and Drug Abuse Patient Records regulations: The Federal rules restrict any use of the information to criminally investigate or prosecute any alcohol or drug abuse patient.[facility] HospitalIn the event this information is protected by the Federal Confidentiality of Alcohol and Drug Abuse Patient Records regulations: The Federal rules restrict any use of the information to criminally investigate or prosecute any alcohol or drug abuse patient.[facility] HospitalIn the event this information is protected by the Federal Confidentiality of Alcohol and Drug Abuse Patient Records regulations: The Federal rules restrict any use of the information to criminally investigate or prosecute any alcohol or drug abuse patient.[facility] HospitalIn the event this information is protected by the Federal Confidentiality of Alcohol and Drug Abuse Patient Records regulations: The Federal rules restrict any use of the information to criminally investigate or prosecute any alcohol or drug abuse patient.[facility] HospitalIn the event this information is protected by the Federal Confidentiality of Alcohol and Drug Abuse Patient Records regulations: The Federal rules restrict any use of the information to criminally investigate or prosecute any alcohol or drug abuse patient.[facility] HospitalIn the event this information is protected by the Federal Confidentiality of Alcohol and Drug Abuse Patient Records regulations: The Federal rules restrict any use of the information to criminally investigate or prosecute any alcohol or drug abuse patient.[facility] HospitalIn the event this information is protected by the Federal Confidentiality of Alcohol and Drug Abuse Patient Records regulations: The Federal rules restrict any use of the information to criminally investigate or prosecute any alcohol or drug abuse patient.[facility] HospitalIn the event this information is protected by the Federal Confidentiality of Alcohol and Drug Abuse Patient Records regulations: The Federal rules restrict any use of the information to criminally investigate or prosecute any alcohol or drug abuse patient.[facility] HospitalIn the event this information is protected by the Federal Confidentiality of Alcohol and Drug Abuse Patient Records regulations: The Federal rules restrict any use of the information to criminally investigate or prosecute any alcohol or drug abuse patient.[facility] HospitalIn the event this information is protected by the Federal Confidentiality of Alcohol and Drug Abuse Patient Records regulations: The Federal rules restrict any use of the information to criminally investigate or prosecute any alcohol or drug abuse patient.[facility] HospitalIn the event this information is protected by the Federal Confidentiality of Alcohol and Drug Abuse Patient Records regulations: The Federal rules restrict any use of the information to criminally investigate or prosecute any alcohol or drug abuse patient.[facility] HospitalIn the event this information is protected by the Federal Confidentiality of Alcohol and Drug Abuse Patient Records regulations: The Federal rules restrict any use of the information to criminally investigate or prosecute any alcohol or drug abuse patient.[facility] HospitalIn the event this information is protected by the Federal Confidentiality of Alcohol and Drug Abuse Patient Records regulations: The Federal rules restrict any use of the information to criminally investigate or prosecute any alcohol or drug abuse patient.[facility] HospitalIn the event this information is protected by the Federal Confidentiality of Alcohol and Drug Abuse Patient Records regulations: The Federal rules restrict any use of the information to criminally investigate or prosecute any alcohol or drug abuse patient.[facility] HospitalIn the event this information is protected by the Federal Confidentiality of Alcohol and Drug Abuse Patient Records regulations: The Federal rules restrict any use of the information to criminally investigate or prosecute any alcohol or drug abuse patient.[facility] HospitalIn the event this information is protected by the Federal Confidentiality of Alcohol and Drug Abuse Patient Records regulations: The Federal rules restrict any use of the information to criminally investigate or prosecute any alcohol or drug abuse patient.[facility] HospitalIn the event this information is protected by the Federal Confidentiality of Alcohol and Drug Abuse Patient Records regulations: The Federal rules restrict any use of the information to criminally investigate or prosecute any alcohol or drug abuse patient.[facility] HospitalIn the event this information is protected by the Federal Confidentiality of Alcohol and Drug Abuse Patient Records regulations: The Federal rules restrict any use of the information to criminally investigate or prosecute any alcohol or drug abuse patient.[facility] HospitalIn the event this information is protected by the Federal Confidentiality of Alcohol and Drug Abuse Patient Records regulations: The Federal rules restrict any use of the information to criminally investigate or prosecute any alcohol or drug abuse patient.[facility] HospitalIn the event this information is protected by the Federal Confidentiality of Alcohol and Drug Abuse Patient Records regulations: The Federal rules restrict any use of the information to criminally investigate or prosecute any alcohol or drug abuse patient.[facility] HospitalIn the event this information is protected by the Federal Confidentiality of Alcohol and Drug Abuse Patient Records regulations: The Federal rules restrict any use of the information to criminally investigate or prosecute any alcohol or drug abuse patient.[facility] HospitalIn the event this information is protected by the Federal Confidentiality of Alcohol and Drug Abuse Patient Records regulations: The Federal rules restrict any use of the information to criminally investigate or prosecute any alcohol or drug abuse patient.[facility] HospitalIn the event this information is protected by the Federal Confidentiality of Alcohol and Drug Abuse Patient Records regulations: The Federal rules restrict any use of the information to criminally investigate or prosecute any alcohol or drug abuse patient.[facility] HospitalIn the event this information is protected by the Federal Confidentiality of Alcohol and Drug Abuse Patient Records regulations: The Federal rules restrict any use of the information to criminally investigate or prosecute any alcohol or drug abuse patient.[facility] HospitalIn the event this information is protected by the Federal Confidentiality of Alcohol and Drug Abuse Patient Records regulations: The Federal rules restrict any use of the information to criminally investigate or prosecute any alcohol or drug abuse patient.[facility] HospitalIn the event this information is protected by the Federal Confidentiality of Alcohol and Drug Abuse Patient Records regulations: The Federal rules restrict any use of the information to criminally investigate or prosecute any alcohol or drug abuse patient.[facility] HospitalIn the event this information is protected by the Federal Confidentiality of Alcohol and Drug Abuse Patient Records regulations: The Federal rules restrict any use of the information to criminally investigate or prosecute any alcohol or drug abuse patient.[facility] HospitalIn the event this information is protected by the Federal Confidentiality of Alcohol and Drug Abuse Patient Records regulations: The Federal rules restrict any use of the information to criminally investigate or prosecute any alcohol or drug abuse patient.[facility] HospitalIn the event this information is protected by the Federal Confidentiality of Alcohol and Drug Abuse Patient Records regulations: The Federal rules restrict any use of the information to criminally investigate or prosecute any alcohol or drug abuse patient.[facility] HospitalIn the event this information is protected by the Federal Confidentiality of Alcohol and Drug Abuse Patient Records regulations: The Federal rules restrict any use of the information to criminally investigate or prosecute any alcohol or drug abuse patient.[facility] HospitalIn the event this information is protected by the Federal Confidentiality of Alcohol and Drug Abuse Patient Records regulations: The Federal rules restrict any use of the information to criminally investigate or prosecute any alcohol or drug abuse patient.[facility] HospitalIn the event this information is protected by the Federal Confidentiality of Alcohol and Drug Abuse Patient Records regulations: The Federal rules restrict any use of the information to criminally investigate or prosecute any alcohol or drug abuse patient.[facility] HospitalIn the event this information is protected by the Federal Confidentiality of Alcohol and Drug Abuse Patient Records regulations: The Federal rules restrict any use of the information to criminally investigate or prosecute any alcohol or drug abuse patient.[facility] HospitalIn the event this information is protected by the Federal Confidentiality of Alcohol and Drug Abuse Patient Records regulations: The Federal rules restrict any use of the information to criminally investigate or prosecute any alcohol or drug abuse patient.[facility] HospitalIn the event this information is protected by the Federal Confidentiality of Alcohol and Drug Abuse Patient Records regulations: The Federal rules restrict any use of the information to criminally investigate or prosecute any alcohol or drug abuse patient.[facility] HospitalIn the event this information is protected by the Federal Confidentiality of Alcohol and Drug Abuse Patient Records regulations: The Federal rules restrict any use of the information to criminally investigate or prosecute any alcohol or drug abuse patient.[facility] HospitalIn the event this information is protected by the Federal Confidentiality of Alcohol and Drug Abuse Patient Records regulations: The Federal rules restrict any use of the information to criminally investigate or prosecute any alcohol or drug abuse patient.[facility] HospitalIn the event this information is protected by the Federal Confidentiality of Alcohol and Drug Abuse Patient Records regulations: The Federal rules restrict any use of the information to criminally investigate or prosecute any alcohol or drug abuse patient.[facility] HospitalIn the event this information is protected by the Federal Confidentiality of Alcohol and Drug Abuse Patient Records regulations: The Federal rules restrict any use of the information to criminally investigate or prosecute any alcohol or drug abuse patient.[facility] HospitalIn the event this information is protected by the Federal Confidentiality of Alcohol and Drug Abuse Patient Records regulations: The Federal rules restrict any use of the information to criminally investigate or prosecute any alcohol or drug abuse patient.[facility] HospitalIn the event this information is protected by the Federal Confidentiality of Alcohol and Drug Abuse Patient Records regulations: The Federal rules restrict any use of the information to criminally investigate or prosecute any alcohol or drug abuse patient.[facility] HospitalIn the event this information is protected by the Federal Confidentiality of Alcohol and Drug Abuse Patient Records regulations: The Federal rules restrict any use of the information to criminally investigate or prosecute any alcohol or drug abuse patient.[facility] HospitalIn the event this information is protected by the Federal Confidentiality of Alcohol and Drug Abuse Patient Records regulations: The Federal rules restrict any use of the information to criminally investigate or prosecute any alcohol or drug abuse patient.[facility] HospitalIn the event this information is protected by the Federal Confidentiality of Alcohol and Drug Abuse Patient Records regulations: The Federal rules restrict any use of the information to criminally investigate or prosecute any alcohol or drug abuse patient.[facility] HospitalIn the event this information is protected by the Federal Confidentiality of Alcohol and Drug Abuse Patient Records regulations: The Federal rules restrict any use of the information to criminally investigate or prosecute any alcohol or drug abuse patient.[facility] HospitalIn the event this information is protected by the Federal Confidentiality of Alcohol and Drug Abuse Patient Records regulations: The Federal rules restrict any use of the information to criminally investigate or prosecute any alcohol or drug abuse patient.[facility] HospitalIn the event this information is protected by the Federal Confidentiality of Alcohol and Drug Abuse Patient Records regulations: The Federal rules restrict any use of the information to criminally investigate or prosecute any alcohol or drug abuse patient.[facility] HospitalIn the event this information is protected by the Federal Confidentiality of Alcohol and Drug Abuse Patient Records regulations: The Federal rules restrict any use of the information to criminally investigate or prosecute any alcohol or drug abuse patient.[facility] HospitalIn the event this information is protected by the Federal Confidentiality of Alcohol and Drug Abuse Patient Records regulations: The Federal rules restrict any use of the information to criminally investigate or prosecute any alcohol or drug abuse patient.[facility] HospitalIn the event this information is protected by the Federal Confidentiality of Alcohol and Drug Abuse Patient Records regulations: The Federal rules restrict any use of the information to criminally investigate or prosecute any alcohol or drug abuse patient.[facility] HospitalIn the event this information is protected by the Federal Confidentiality of Alcohol and Drug Abuse Patient Records regulations: The Federal rules restrict any use of the information to criminally investigate or prosecute any alcohol or drug abuse patient.[facility] HospitalIn the event this information is protected by the Federal Confidentiality of Alcohol and Drug Abuse Patient Records regulations: The Federal rules restrict any use of the information to criminally investigate or prosecute any alcohol or drug abuse patient.[facility] HospitalIn the event this information is protected by the Federal Confidentiality of Alcohol and Drug Abuse Patient Records regulations: The Federal rules restrict any use of the information to criminally investigate or prosecute any alcohol or drug abuse patient.[facility] HospitalIn the event this information is protected by the Federal Confidentiality of Alcohol and Drug Abuse Patient Records regulations: The Federal rules restrict any use of the information to criminally investigate or prosecute any alcohol or drug abuse patient.[facility] HospitalIn the event this information is protected by the Federal Confidentiality of Alcohol and Drug Abuse Patient Records regulations: The Federal rules restrict any use of the information to criminally investigate or prosecute any alcohol or drug abuse patient.[facility] HospitalIn the event this information is protected by the Federal Confidentiality of Alcohol and Drug Abuse Patient Records regulations: The Federal rules restrict any use of the information to criminally investigate or prosecute any alcohol or drug abuse patient.[facility] HospitalIn the event this information is protected by the Federal Confidentiality of Alcohol and Drug Abuse Patient Records regulations: The Federal rules restrict any use of the information to criminally investigate or prosecute any alcohol or drug abuse patient.[facility] HospitalIn the event this information is protected by the Federal Confidentiality of Alcohol and Drug Abuse Patient Records regulations: The Federal rules restrict any use of the information to criminally investigate or prosecute any alcohol or drug abuse patient.[facility] HospitalIn the event this information is protected by the Federal Confidentiality of Alcohol and Drug Abuse Patient Records regulations: The Federal rules restrict any use of the information to criminally investigate or prosecute any alcohol or drug abuse patient.[facility] HospitalIn the event this information is protected by the Federal Confidentiality of Alcohol and Drug Abuse Patient Records regulations: The Federal rules restrict any use of the information to criminally investigate or prosecute any alcohol or drug abuse patient.[facility] HospitalIn the event this information is protected by the Federal Confidentiality of Alcohol and Drug Abuse Patient Records regulations: The Federal rules restrict any use of the information to criminally investigate or prosecute any alcohol or drug abuse patient.[facility] HospitalIn the event this information is protected by the Federal Confidentiality of Alcohol and Drug Abuse Patient Records regulations: The Federal rules restrict any use of the information to criminally investigate or prosecute any alcohol or drug abuse patient.[facility] HospitalIn the event this information is protected by the Federal Confidentiality of Alcohol and Drug Abuse Patient Records regulations: The Federal rules restrict any use of the information to criminally investigate or prosecute any alcohol or drug abuse patient.[facility] HospitalIn the event this information is protected by the Federal Confidentiality of Alcohol and Drug Abuse Patient Records regulations: The Federal rules restrict any use of the information to criminally investigate or prosecute any alcohol or drug abuse patient.[facility] HospitalIn the event this information is protected by the Federal Confidentiality of Alcohol and Drug Abuse Patient Records regulations: The Federal rules restrict any use of the information to criminally investigate or prosecute any alcohol or drug abuse patient.[facility] HospitalIn the event this information is protected by the Federal Confidentiality of Alcohol and Drug Abuse Patient Records regulations: The Federal rules restrict any use of the information to criminally investigate or prosecute any alcohol or drug abuse patient.[facility] HospitalIn the event this information is protected by the Federal Confidentiality of Alcohol and Drug Abuse Patient Records regulations: The Federal rules restrict any use of the information to criminally investigate or prosecute any alcohol or drug abuse patient.[facility] HospitalIn the event this information is protected by the Federal Confidentiality of Alcohol and Drug Abuse Patient Records regulations: The Federal rules restrict any use of the information to criminally investigate or prosecute any alcohol or drug abuse patient.[facility] HospitalIn the event this information is protected by the Federal Confidentiality of Alcohol and Drug Abuse Patient Records regulations: The Federal rules restrict any use of the information to criminally investigate or prosecute any alcohol or drug abuse patient.[facility] HospitalIn the event this information is protected by the Federal Confidentiality of Alcohol and Drug Abuse Patient Records regulations: The Federal rules restrict any use of the information to criminally investigate or prosecute any alcohol or drug abuse patient.[facility] HospitalIn the event this information is protected by the Federal Confidentiality of Alcohol and Drug Abuse Patient Records regulations: The Federal rules restrict any use of the information to criminally investigate or prosecute any alcohol or drug abuse patient.[facility] HospitalIn the event this information is protected by the Federal Confidentiality of Alcohol and Drug Abuse Patient Records regulations: The Federal rules restrict any use of the information to criminally investigate or prosecute any alcohol or drug abuse patient.[facility] HospitalIn the event this information is protected by the Federal Confidentiality of Alcohol and Drug Abuse Patient Records regulations: The Federal rules restrict any use of the information to criminally investigate or prosecute any alcohol or drug abuse patient.[facility] HospitalIn the event this information is protected by the Federal Confidentiality of Alcohol and Drug Abuse Patient Records regulations: The Federal rules restrict any use of the information to criminally investigate or prosecute any alcohol or drug abuse patient.[facility] HospitalIn the event this information is protected by the Federal Confidentiality of Alcohol and Drug Abuse Patient Records regulations: The Federal rules restrict any use of the information to criminally investigate or prosecute any alcohol or drug abuse patient.[facility] HospitalIn the event this information is protected by the Federal Confidentiality of Alcohol and Drug Abuse Patient Records regulations: The Federal rules restrict any use of the information to criminally investigate or prosecute any alcohol or drug abuse patient.[facility] HospitalIn the event this information is protected by the Federal Confidentiality of Alcohol and Drug Abuse Patient Records regulations: The Federal rules restrict any use of the information to criminally investigate or prosecute any alcohol or drug abuse patient.[facility] HospitalIn the event this information is protected by the Federal Confidentiality of Alcohol and Drug Abuse Patient Records regulations: The Federal rules restrict any use of the information to criminally investigate or prosecute any alcohol or drug abuse patient.[facility] HospitalIn the event this information is protected by the Federal Confidentiality of Alcohol and Drug Abuse Patient Records regulations: The Federal rules restrict any use of the information to criminally investigate or prosecute any alcohol or drug abuse patient.[facility] HospitalIn the event this information is protected by the Federal Confidentiality of Alcohol and Drug Abuse Patient Records regulations: The Federal rules restrict any use of the information to criminally investigate or prosecute any alcohol or drug abuse patient.[facility] HospitalIn the event this information is protected by the Federal Confidentiality of Alcohol and Drug Abuse Patient Records regulations: The Federal rules restrict any use of the information to criminally investigate or prosecute any alcohol or drug abuse patient.[facility] HospitalIn the event this information is protected by the Federal Confidentiality of Alcohol and Drug Abuse Patient Records regulations: The Federal rules restrict any use of the information to criminally investigate or prosecute any alcohol or drug abuse patient.[facility] HospitalIn the event this information is protected by the Federal Confidentiality of Alcohol and Drug Abuse Patient Records regulations: The Federal rules restrict any use of the information to criminally investigate or prosecute any alcohol or drug abuse patient.[facility] HospitalIn the event this information is protected by the Federal Confidentiality of Alcohol and Drug Abuse Patient Records regulations: The Federal rules restrict any use of the information to criminally investigate or prosecute any alcohol or drug abuse patient.[facility] HospitalIn the event this information is protected by the Federal Confidentiality of Alcohol and Drug Abuse Patient Records regulations: The Federal rules restrict any use of the information to criminally investigate or prosecute any alcohol or drug abuse patient.[facility] HospitalIn the event this information is protected by the Federal Confidentiality of Alcohol and Drug Abuse Patient Records regulations: The Federal rules restrict any use of the information to criminally investigate or prosecute any alcohol or drug abuse patient.[facility] HospitalIn the event this information is protected by the Federal Confidentiality of Alcohol and Drug Abuse Patient Records regulations: The Federal rules restrict any use of the information to criminally investigate or prosecute any alcohol or drug abuse patient.[facility] HospitalIn the event this information is protected by the Federal Confidentiality of Alcohol and Drug Abuse Patient Records regulations: The Federal rules restrict any use of the information to criminally investigate or prosecute any alcohol or drug abuse patient.[facility] HospitalIn the event this information is protected by the Federal Confidentiality of Alcohol and Drug Abuse Patient Records regulations: The Federal rules restrict any use of the information to criminally investigate or prosecute any alcohol or drug abuse patient.[facility] HospitalIn the event this information is protected by the Federal Confidentiality of Alcohol and Drug Abuse Patient Records regulations: The Federal rules restrict any use of the information to criminally investigate or prosecute any alcohol or drug abuse patient.[facility] HospitalIn the event this information is protected by the Federal Confidentiality of Alcohol and Drug Abuse Patient Records regulations: The Federal rules restrict any use of the information to criminally investigate or prosecute any alcohol or drug abuse patient.[facility] HospitalIn the event this information is protected by the Federal Confidentiality of Alcohol and Drug Abuse Patient Records regulations: The Federal rules restrict any use of the information to criminally investigate or prosecute any alcohol or drug abuse patient.[facility] HospitalIn the event this information is protected by the Federal Confidentiality of Alcohol and Drug Abuse Patient Records regulations: The Federal rules restrict any use of the information to criminally investigate or prosecute any alcohol or drug abuse patient.[facility] HospitalIn the event this information is protected by the Federal Confidentiality of Alcohol and Drug Abuse Patient Records regulations: The Federal rules restrict any use of the information to criminally investigate or prosecute any alcohol or drug abuse patient.[facility] HospitalIn the event this information is protected by the Federal Confidentiality of Alcohol and Drug Abuse Patient Records regulations: The Federal rules restrict any use of the information to criminally investigate or prosecute any alcohol or drug abuse patient.[facility] HospitalIn the event this information is protected by the Federal Confidentiality of Alcohol and Drug Abuse Patient Records regulations: The Federal rules restrict any use of the information to criminally investigate or prosecute any alcohol or drug abuse patient.[facility] HospitalIn the event this information is protected by the Federal Confidentiality of Alcohol and Drug Abuse Patient Records regulations: The Federal rules restrict any use of the information to criminally investigate or prosecute any alcohol or drug abuse patient.[facility] HospitalIn the event this information is protected by the Federal Confidentiality of Alcohol and Drug Abuse Patient Records regulations: The Federal rules restrict any use of the information to criminally investigate or prosecute any alcohol or drug abuse patient.[facility] HospitalIn the event this information is protected by the Federal Confidentiality of Alcohol and Drug Abuse Patient Records regulations: The Federal rules restrict any use of the information to criminally investigate or prosecute any alcohol or drug abuse patient.[facility] HospitalIn the event this information is protected by the Federal Confidentiality of Alcohol and Drug Abuse Patient Records regulations: The Federal rules restrict any use of the information to criminally investigate or prosecute any alcohol or drug abuse patient.[facility] HospitalIn the event this information is protected by the Federal Confidentiality of Alcohol and Drug Abuse Patient Records regulations: The Federal rules restrict any use of the information to criminally investigate or prosecute any alcohol or drug abuse patient.[facility] HospitalIn the event this information is protected by the Federal Confidentiality of Alcohol and Drug Abuse Patient Records regulations: The Federal rules restrict any use of the information to criminally investigate or prosecute any alcohol or drug abuse patient.[facility] HospitalIn the event this information is protected by the Federal Confidentiality of Alcohol and Drug Abuse Patient Records regulations: The Federal rules restrict any use of the information to criminally investigate or prosecute any alcohol or drug abuse patient.[facility] HospitalIn the event this information is protected by the Federal Confidentiality of Alcohol and Drug Abuse Patient Records regulations: The Federal rules restrict any use of the information to criminally investigate or prosecute any alcohol or drug abuse patient.[facility] HospitalIn the event this information is protected by the Federal Confidentiality of Alcohol and Drug Abuse Patient Records regulations: The Federal rules restrict any use of the information to criminally investigate or prosecute any alcohol or drug abuse patient.[facility] HospitalIn the event this information is protected by the Federal Confidentiality of Alcohol and Drug Abuse Patient Records regulations: The Federal rules restrict any use of the information to criminally investigate or prosecute any alcohol or drug abuse patient.[facility] HospitalIn the event this information is protected by the Federal Confidentiality of Alcohol and Drug Abuse Patient Records regulations: The Federal rules restrict any use of the information to criminally investigate or prosecute any alcohol or drug abuse patient.[facility] HospitalIn the event this information is protected by the Federal Confidentiality of Alcohol and Drug Abuse Patient Records regulations: The Federal rules restrict any use of the information to criminally investigate or prosecute any alcohol or drug abuse patient.[facility] HospitalIn the event this information is protected by the Federal Confidentiality of Alcohol and Drug Abuse Patient Records regulations: The Federal rules restrict any use of the information to criminally investigate or prosecute any alcohol or drug abuse patient.[facility] HospitalIn the event this information is protected by the Federal Confidentiality of Alcohol and Drug Abuse Patient Records regulations: The Federal rules restrict any use of the information to criminally investigate or prosecute any alcohol or drug abuse patient.[facility] HospitalIn the event this information is protected by the Federal Confidentiality of Alcohol and Drug Abuse Patient Records regulations: The Federal rules restrict any use of the information to criminally investigate or prosecute any alcohol or drug abuse patient.[facility] HospitalIn the event this information is protected by the Federal Confidentiality of Alcohol and Drug Abuse Patient Records regulations: The Federal rules restrict any use of the information to criminally investigate or prosecute any alcohol or drug abuse patient.[facility] HospitalIn the event this information is protected by the Federal Confidentiality of Alcohol and Drug Abuse Patient Records regulations: The Federal rules restrict any use of the information to criminally investigate or prosecute any alcohol or drug abuse patient.[facility] HospitalIn the event this information is protected by the Federal Confidentiality of Alcohol and Drug Abuse Patient Records regulations: The Federal rules restrict any use of the information to criminally investigate or prosecute any alcohol or drug abuse patient.[facility] HospitalIn the event this information is protected by the Federal Confidentiality of Alcohol and Drug Abuse Patient Records regulations: The Federal rules restrict any use of the information to criminally investigate or prosecute any alcohol or drug abuse patient.[facility] HospitalIn the event this information is protected by the Federal Confidentiality of Alcohol and Drug Abuse Patient Records regulations: The Federal rules restrict any use of the information to criminally investigate or prosecute any alcohol or drug abuse patient.[facility] HospitalIn the event this information is protected by the Federal Confidentiality of Alcohol and Drug Abuse Patient Records regulations: The Federal rules restrict any use of the information to criminally investigate or prosecute any alcohol or drug abuse patient.[facility] HospitalIn the event this information is protected by the Federal Confidentiality of Alcohol and Drug Abuse Patient Records regulations: The Federal rules restrict any use of the information to criminally investigate or prosecute any alcohol or drug abuse patient.[facility] HospitalIn the event this information is protected by the Federal Confidentiality of Alcohol and Drug Abuse Patient Records regulations: The Federal rules restrict any use of the information to criminally investigate or prosecute any alcohol or drug abuse patient.[facility] HospitalIn the event this information is protected by the Federal Confidentiality of Alcohol and Drug Abuse Patient Records regulations: The Federal rules restrict any use of the information to criminally investigate or prosecute any alcohol or drug abuse patient.[facility] HospitalIn the event this information is protected by the Federal Confidentiality of Alcohol and Drug Abuse Patient Records regulations: The Federal rules restrict any use of the information to criminally investigate or prosecute any alcohol or drug abuse patient.[facility] HospitalIn the event this information is protected by the Federal Confidentiality of Alcohol and Drug Abuse Patient Records regulations: The Federal rules restrict any use of the information to criminally investigate or prosecute any alcohol or drug abuse patient.[facility] HospitalIn the event this information is protected by the Federal Confidentiality of Alcohol and Drug Abuse Patient Records regulations: The Federal rules restrict any use of the information to criminally investigate or prosecute any alcohol or drug abuse patient.[facility] HospitalIn the event this information is protected by the Federal Confidentiality of Alcohol and Drug Abuse Patient Records regulations: The Federal rules restrict any use of the information to criminally investigate or prosecute any alcohol or drug abuse patient.[facility] HospitalIn the event this information is protected by the Federal Confidentiality of Alcohol and Drug Abuse Patient Records regulations: The Federal rules restrict any use of the information to criminally investigate or prosecute any alcohol or drug abuse patient.[facility] HospitalIn the event this information is protected by the Federal Confidentiality of Alcohol and Drug Abuse Patient Records regulations: The Federal rules restrict any use of the information to criminally investigate or prosecute any alcohol or drug abuse patient.[facility] HospitalIn the event this information is protected by the Federal Confidentiality of Alcohol and Drug Abuse Patient Records regulations: The Federal rules restrict any use of the information to criminally investigate or prosecute any alcohol or drug abuse patient.[facility] HospitalIn the event this information is protected by the Federal Confidentiality of Alcohol and Drug Abuse Patient Records regulations: The Federal rules restrict any use of the information to criminally investigate or prosecute any alcohol or drug abuse patient.[facility] HospitalIn the event this information is protected by the Federal Confidentiality of Alcohol and Drug Abuse Patient Records regulations: The Federal rules restrict any use of the information to criminally investigate or prosecute any alcohol or drug abuse patient.[facility] HospitalIn the event this information is protected by the Federal Confidentiality of Alcohol and Drug Abuse Patient Records regulations: The Federal rules restrict any use of the information to criminally investigate or prosecute any alcohol or drug abuse patient.[facility] HospitalIn the event this information is protected by the Federal Confidentiality of Alcohol and Drug Abuse Patient Records regulations: The Federal rules restrict any use of the information to criminally investigate or prosecute any alcohol or drug abuse patient.[facility] HospitalIn the event this information is protected by the Federal Confidentiality of Alcohol and Drug Abuse Patient Records regulations: The Federal rules restrict any use of the information to criminally investigate or prosecute any alcohol or drug abuse patient.[facility] HospitalIn the event this information is protected by the Federal Confidentiality of Alcohol and Drug Abuse Patient Records regulations: The Federal rules restrict any use of the information to criminally investigate or prosecute any alcohol or drug abuse patient.[facility] HospitalIn the event this information is protected by the Federal Confidentiality of Alcohol and Drug Abuse Patient Records regulations: The Federal rules restrict any use of the information to criminally investigate or prosecute any alcohol or drug abuse patient.[facility] HospitalIn the event this information is protected by the Federal Confidentiality of Alcohol and Drug Abuse Patient Records regulations: The Federal rules restrict any use of the information to criminally investigate or prosecute any alcohol or drug abuse patient.[facility] HospitalIn the event this information is protected by the Federal Confidentiality of Alcohol and Drug Abuse Patient Records regulations: The Federal rules restrict any use of the information to criminally investigate or prosecute any alcohol or drug abuse patient.[facility] HospitalIn the event this information is protected by the Federal Confidentiality of Alcohol and Drug Abuse Patient Records regulations: The Federal rules restrict any use of the information to criminally investigate or prosecute any alcohol or drug abuse patient.[facility] HospitalIn the event this information is protected by the Federal Confidentiality of Alcohol and Drug Abuse Patient Records regulations: The Federal rules restrict any use of the information to criminally investigate or prosecute any alcohol or drug abuse patient.[facility] HospitalIn the event this information is protected by the Federal Confidentiality of Alcohol and Drug Abuse Patient Records regulations: The Federal rules restrict any use of the information to criminally investigate or prosecute any alcohol or drug abuse patient.[facility] HospitalIn the event this information is protected by the Federal Confidentiality of Alcohol and Drug Abuse Patient Records regulations: The Federal rules restrict any use of the information to criminally investigate or prosecute any alcohol or drug abuse patient.[facility] HospitalIn the event this information is protected by the Federal Confidentiality of Alcohol and Drug Abuse Patient Records regulations: The Federal rules restrict any use of the information to criminally investigate or prosecute any alcohol or drug abuse patient.[facility] HospitalIn the event this information is protected by the Federal Confidentiality of Alcohol and Drug Abuse Patient Records regulations: The Federal rules restrict any use of the information to criminally investigate or prosecute any alcohol or drug abuse patient.[facility] HospitalIn the event this information is protected by the Federal Confidentiality of Alcohol and Drug Abuse Patient Records regulations: The Federal rules restrict any use of the information to criminally investigate or prosecute any alcohol or drug abuse patient.[facility] HospitalIn the event this information is protected by the Federal Confidentiality of Alcohol and Drug Abuse Patient Records regulations: The Federal rules restrict any use of the information to criminally investigate or prosecute any alcohol or drug abuse patient.[facility] HospitalIn the event this information is protected by the Federal Confidentiality of Alcohol and Drug Abuse Patient Records regulations: The Federal rules restrict any use of the information to criminally investigate or prosecute any alcohol or drug abuse patient.[facility] HospitalIn the event this information is protected by the Federal Confidentiality of Alcohol and Drug Abuse Patient Records regulations: The Federal rules restrict any use of the information to criminally investigate or prosecute any alcohol or drug abuse patient.[facility] HospitalIn the event this information is protected by the Federal Confidentiality of Alcohol and Drug Abuse Patient Records regulations: The Federal rules restrict any use of the information to criminally investigate or prosecute any alcohol or drug abuse patient.[facility] HospitalIn the event this information is protected by the Federal Confidentiality of Alcohol and Drug Abuse Patient Records regulations: The Federal rules restrict any use of the information to criminally investigate or prosecute any alcohol or drug abuse patient.[facility] HospitalIn the event this information is protected by the Federal Confidentiality of Alcohol and Drug Abuse Patient Records regulations: The Federal rules restrict any use of the information to criminally investigate or prosecute any alcohol or drug abuse patient.[facility] HospitalIn the event this information is protected by the Federal Confidentiality of Alcohol and Drug Abuse Patient Records regulations: The Federal rules restrict any use of the information to criminally investigate or prosecute any alcohol or drug abuse patient.[facility] HospitalIn the event this information is protected by the Federal Confidentiality of Alcohol and Drug Abuse Patient Records regulations: The Federal rules restrict any use of the information to criminally investigate or prosecute any alcohol or drug abuse patient.[facility] HospitalIn the event this information is protected by the Federal Confidentiality of Alcohol and Drug Abuse Patient Records regulations: The Federal rules restrict any use of the information to criminally investigate or prosecute any alcohol or drug abuse patient.[facility] HospitalIn the event this information is protected by the Federal Confidentiality of Alcohol and Drug Abuse Patient Records regulations: The Federal rules restrict any use of the information to criminally investigate or prosecute any alcohol or drug abuse patient.[facility] HospitalIn the event this information is protected by the Federal Confidentiality of Alcohol and Drug Abuse Patient Records regulations: The Federal rules restrict any use of the information to criminally investigate or prosecute any alcohol or drug abuse patient.[facility] HospitalIn the event this information is protected by the Federal Confidentiality of Alcohol and Drug Abuse Patient Records regulations: The Federal rules restrict any use of the information to criminally investigate or prosecute any alcohol or drug abuse patient.[facility] HospitalIn the event this information is protected by the Federal Confidentiality of Alcohol and Drug Abuse Patient Records regulations: The Federal rules restrict any use of the information to criminally investigate or prosecute any alcohol or drug abuse patient.[facility] HospitalIn the event this information is protected by the Federal Confidentiality of Alcohol and Drug Abuse Patient Records regulations: The Federal rules restrict any use of the information to criminally investigate or prosecute any alcohol or drug abuse patient.[facility] HospitalIn the event this information is protected by the Federal Confidentiality of Alcohol and Drug Abuse Patient Records regulations: The Federal rules restrict any use of the information to criminally investigate or prosecute any alcohol or drug abuse patient.[facility] HospitalIn the event this information is protected by the Federal Confidentiality of Alcohol and Drug Abuse Patient Records regulations: The Federal rules restrict any use of the information to criminally investigate or prosecute any alcohol or drug abuse patient.[facility] HospitalIn the event this information is protected by the Federal Confidentiality of Alcohol and Drug Abuse Patient Records regulations: The Federal rules restrict any use of the information to criminally investigate or prosecute any alcohol or drug abuse patient.[facility] HospitalIn the event this information is protected by the Federal Confidentiality of Alcohol and Drug Abuse Patient Records regulations: The Federal rules restrict any use of the information to criminally investigate or prosecute any alcohol or drug abuse patient.[facility] HospitalIn the event this information is protected by the Federal Confidentiality of Alcohol and Drug Abuse Patient Records regulations: The Federal rules restrict any use of the information to criminally investigate or prosecute any alcohol or drug abuse patient.[facility] HospitalIn the event this information is protected by the Federal Confidentiality of Alcohol and Drug Abuse Patient Records regulations: The Federal rules restrict any use of the information to criminally investigate or prosecute any alcohol or drug abuse patient.[facility] HospitalIn the event this information is protected by the Federal Confidentiality of Alcohol and Drug Abuse Patient Records regulations: The Federal rules restrict any use of the information to criminally investigate or prosecute any alcohol or drug abuse patient.[facility] HospitalIn the event this information is protected by the Federal Confidentiality of Alcohol and Drug Abuse Patient Records regulations: The Federal rules restrict any use of the information to criminally investigate or prosecute any alcohol or drug abuse patient.[facility] HospitalIn the event this information is protected by the Federal Confidentiality of Alcohol and Drug Abuse Patient Records regulations: The Federal rules restrict any use of the information to criminally investigate or prosecute any alcohol or drug abuse patient.[facility] HospitalIn the event this information is protected by the Federal Confidentiality of Alcohol and Drug Abuse Patient Records regulations: The Federal rules restrict any use of the information to criminally investigate or prosecute any alcohol or drug abuse patient.[facility] HospitalIn the event this information is protected by the Federal Confidentiality of Alcohol and Drug Abuse Patient Records regulations: The Federal rules restrict any use of the information to criminally investigate or prosecute any alcohol or drug abuse patient.[facility] HospitalIn the event this information is protected by the Federal Confidentiality of Alcohol and Drug Abuse Patient Records regulations: The Federal rules restrict any use of the information to criminally investigate or prosecute any alcohol or drug abuse patient.[facility] HospitalIn the event this information is protected by the Federal Confidentiality of Alcohol and Drug Abuse Patient Records regulations: The Federal rules restrict any use of the information to criminally investigate or prosecute any alcohol or drug abuse patient.[facility] HospitalIn the event this information is protected by the Federal Confidentiality of Alcohol and Drug Abuse Patient Records regulations: The Federal rules restrict any use of the information to criminally investigate or prosecute any alcohol or drug abuse patient.[facility] HospitalIn the event this information is protected by the Federal Confidentiality of Alcohol and Drug Abuse Patient Records regulations: The Federal rules restrict any use of the information to criminally investigate or prosecute any alcohol or drug abuse patient.[facility] HospitalIn the event this information is protected by the Federal Confidentiality of Alcohol and Drug Abuse Patient Records regulations: The Federal rules restrict any use of the information to criminally investigate or prosecute any alcohol or drug abuse patient.[facility] HospitalIn the event this information is protected by the Federal Confidentiality of Alcohol and Drug Abuse Patient Records regulations: The Federal rules restrict any use of the information to criminally investigate or prosecute any alcohol or drug abuse patient.[facility] HospitalIn the event this information is protected by the Federal Confidentiality of Alcohol and Drug Abuse Patient Records regulations: The Federal rules restrict any use of the information to criminally investigate or prosecute any alcohol or drug abuse patient.[facility] HospitalIn the event this information is protected by the Federal Confidentiality of Alcohol and Drug Abuse Patient Records regulations: The Federal rules restrict any use of the information to criminally investigate or prosecute any alcohol or drug abuse patient.[facility] HospitalIn the event this information is protected by the Federal Confidentiality of Alcohol and Drug Abuse Patient Records regulations: The Federal rules restrict any use of the information to criminally investigate or prosecute any alcohol or drug abuse patient.[facility] HospitalIn the event this information is protected by the Federal Confidentiality of Alcohol and Drug Abuse Patient Records regulations: The Federal rules restrict any use of the information to criminally investigate or prosecute any alcohol or drug abuse patient.[facility] HospitalIn the event this information is protected by the Federal Confidentiality of Alcohol and Drug Abuse Patient Records regulations: The Federal rules restrict any use of the information to criminally investigate or prosecute any alcohol or drug abuse patient.[facility] HospitalIn the event this information is protected by the Federal Confidentiality of Alcohol and Drug Abuse Patient Records regulations: The Federal rules restrict any use of the information to criminally investigate or prosecute any alcohol or drug abuse patient.[facility] HospitalIn the event this information is protected by the Federal Confidentiality of Alcohol and Drug Abuse Patient Records regulations: The Federal rules restrict any use of the information to criminally investigate or prosecute any alcohol or drug abuse patient.[facility] HospitalIn the event this information is protected by the Federal Confidentiality of Alcohol and Drug Abuse Patient Records regulations: The Federal rules restrict any use of the information to criminally investigate or prosecute any alcohol or drug abuse patient.[facility] HospitalIn the event this information is protected by the Federal Confidentiality of Alcohol and Drug Abuse Patient Records regulations: The Federal rules restrict any use of the information to criminally investigate or prosecute any alcohol or drug abuse patient.[facility] HospitalIn the event this information is protected by the Federal Confidentiality of Alcohol and Drug Abuse Patient Records regulations: The Federal rules restrict any use of the information to criminally investigate or prosecute any alcohol or drug abuse patient.[facility] HospitalIn the event this information is protected by the Federal Confidentiality of Alcohol and Drug Abuse Patient Records regulations: The Federal rules restrict any use of the information to criminally investigate or prosecute any alcohol or drug abuse patient.[facility] FOR RECORDS PERTAINING TO PATIENTS WHO ARE [...] BE BASED ON THE PRIMARY CLINICAL RECORDS. [facility] [employer] [facility]. provides no warranty or guarantee of the accuracy or completeness of information in this document.
--- OUTSIDE RECORDS SUMMARY | 2024-12-06 21:39 | XMS RPT_ITS | CCD ---
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 100.0100, L501.2450, L500.4050, L700.6800 #### [facility] [address] [place], [address] MCH (RBC) [Entitic mass] 32.3 pg High 27.0-32.0 [facility] Comment on above: Performed By: #### L 100.0100, L501.2450, L500.4050, L700.6800 #### [facility] [address] [place], [address] MCHC (RBC) [Mass/Vol] 34.8 g/dL Normal 32-36 [facility] Comment on above: Performed By: #### L 100.0100, L501.2450, L500.4050, L700.6800 #### [facility] [address] [place], [address] MCV (RBC) [Entitic vol] 93.0 fL Normal 81-99 [facility] Comment on above: Performed By: #### L 100.0100, L501.2450, L500.4050, L700.6800 #### [facility] [address] [place], [address] Monocytes/100 WBC (Bld) 6.5 % Normal 0-10 [facility] Comment on above: Performed By: #### L 100.0100, L501.2450, L500.4050, L700.6800 #### [facility] [address] [place], [address] Neutrophils/100 WBC (Bld) 58.7 % Normal 47-70 [facility] Comment on above: Performed By: #### L 100.0100, L501.2450, L500.4050, L700.6800 #### [facility] [address] [place], [address] Nucleated RBC (Bld) [#/Vol] 0 10*3/uL Normal 0-5 [facility] Comment on above: Performed By: #### L 100.0100, L501.2450, L500.4050, L700.6800 #### [facility] [address] [place], [address] Platelet mean volume (Bld) [Entitic vol] 9.4 fL Normal 6.2-12.0 [facility] Comment on above: Performed By: #### L 100.0100, L501.2450, L500.4050, L700.6800 #### [facility] [address] [place], [address] Platelets (Bld) [#/Vol] 246 10*3/uL Normal 150-450 [facility] Comment on above: Performed By: #### L 100.0100, L501.2450, L500.4050, L700.6800 #### [facility] [address] [place], [address] RBC (Bld) [#/Vol] 3.99 10*6/uL Low 4.2-5.4 [facility] Comment on above: Performed By: #### L 100.0100, L501.2450, L500.4050, L700.6800 #### [facility] [address] [place], [address] RDW SD 43.0 fl Normal 35.1-43.9 [facility] Comment on above: Performed By: #### L 100.0100, L501.2450, L500.4050, L700.6800 #### [facility] [address] [place], [address] WBC (Bld) [#/Vol] 9.3 10*3/uL Normal 4.4-11.0 [facility] Comment on above: Performed By: #### L 100.0100, L501.2450, L500.4050, L700.6800 #### [facility] [address] [place], [address] Emergency Department Summary on 08-28-2024 Emergency Department Summary [facility] Medical Records Department [address] [place] [address] Emergency Department Summary 08/28/24 MR#: [id number] Acct: [id number] Name: PAT KNIGHT Rep #: [id number] : 1980 44 From: Reny Painter DO [...] denies any alcohol or other drug use. [facility] Medical History Marijuana use Right rotator [...] Temperature Source (more content not included)... Normal [facility] Lactic Acidon 08-28-2024 Lactate [Moles/Vol] 1.1 mmol/L Normal 0.0-2.0 [facility] Comment on above: Order Comment: Y Performed By: #### L 100.0100, L501.7140, L500.4050, L700.7140 #### [facility] [address] [place], [address] Lipaseon 08-28-2024 Lipase [Catalytic activity/Vol] 31 U/L Normal 13-75 [facility] Comment on above: Result Comment: Padma gee note: LIPASE revised reference range effective 22. New Lipase methodology. Expected to produce lower values than the previous assay method. NEW Reference Range: 13 - 75 U/L Performed By: #### L 100.0100, L501.2450, L500.4050, L700.6800 #### [facility] [address] [place], [address] Liver Profileon 08-28-2024 Albumin [Mass/Vol] 3.5 g/dL Normal 3.5-5.0 [facility] Comment on above: Performed By: #### L 100.0100, L501.2450, L500.4050, L700.6800 #### [facility] [address] [place], [address] ALK PHOS 57 U/L Normal 35-104 [facility] Comment on above: Performed By: #### L 100.0100, L501.2450, L500.4050, L700.6800 #### [facility] [address] [place], [address] ALT [Catalytic activity/Vol] 10 U/L Normal <=34 [facility] Comment on above: Performed By: #### L 100.0100, L501.2450, L500.4050, L700.6800 #### [facility] [address] [place], [address] AST [Catalytic activity/Vol] 26 U/L Normal <=31 [facility] Comment on above: Performed By: #### L 100.0100, L501.2450, L500.4050, L700.6800 #### [facility] [address] [place], [address] D BILI < 0.08 Normal 0.00-0.30 [facility] Comment on above: Performed By: #### L 100.0100, L501.2450, L500.4050, L700.6800 #### [facility] [address] [place], [address] Globulin (S) [Mass/Vol] 2.6 g/dL Normal 2.2-4.2 [facility] Comment on above: Performed By: #### L 100.0100, L501.2450, L500.4050, L700.6800 #### [facility] [address] [place], [address] T BILI < 0.15 Normal 0.00-1.30 [facility] Comment on above: Performed By: #### L 100.0100, L501.2450, L500.4050, L700.6800 #### [facility] [address] [place], [address] T PROT 6.0 g/dL Normal 5.9-8.4 [facility] Comment on above: Performed By: #### L 100.0100, L501.2450, L500.4050, L700.6800 #### [facility] [address] [place], [address] Urinalysis, Completeon 08-28 BACTERIA Normal None Seen [facility] Comment on above: Order Comment: CLEAN CATCH Result Comment: PT D EP ER ED.M Performed By: #### L 400.0001 #### [facility] [address] [place], [address] BILIRUBIN URINE Normal Negative [facility] Comment on above: Order Comment: CLEAN CATCH Result Comment: PT D EP ER ED.M Performed By: #### L 400.0001 #### [facility] [address] [place], [address] Clarity (U) Normal Clear [facility] Comment on above: Order Comment: CLEAN CATCH Result Comment: PT D EP ER ED.M Performed By: #### L 400.0001 #### [facility] [address] [place], [address] Color (U) Normal Yellow [facility] Comment on above: Order Comment: CLEAN CATCH Result Comment: PT D EP ER ED.M Performed By: #### L 400.0001 #### [facility] [address] [place], [address] EPI,SQUAMOUS Normal 5-10 [facility] Comment on above: Order Comment: CLEAN CATCH Result Comment: PT D EP ER ED.M Performed By: #### L 400.0001 #### [facility] [address] [place], [address] GLUCOSE, UR Normal Normal [facility] Comment on above: Order Comment: CLEAN CATCH Result Comment: PT D EP ER ED.M Performed By: #### L 400.0001 #### [facility] [address] [place], [address] KETONE UR Normal Negative [facility] Comment on above: Order Comment: CLEAN CATCH Result Comment: PT D EP ER ED.M Performed By: #### L 400.0001 #### [facility] [address] [place], [address] LEUK ESTERASE Normal Negative [facility] Comment on above: Order Comment: CLEAN CATCH Result Comment: PT D EP ER ED.M Performed By: #### L 400.0001 #### [facility] [address] [place], [address] Mucus Ql (Urine sed) Normal [facility] Comment on above: Order Comment: CLEAN CATCH Result Comment: PT D EP ER ED.M Performed By: #### L 400.0001 #### [facility] [address] [place], [address] Nitrite Ql (U) Normal Negative [facility] Comment on above: Order Comment: CLEAN CATCH Result Comment: PT D EP ER ED.M Performed By: #### L 400.0001 #### [facility] [address] [place], [address] OCCULT BLOOD-UR Normal Negative [facility] Comment on above: Order Comment: CLEAN CATCH Result Comment: PT D EP ER ED.M Performed By: #### L 400.0001 #### [facility] [address] [place], [address] pH UR Normal 5.0 - 8.0 [facility] Comment on above: Order Comment: CLEAN CATCH Result Comment: PT D EP ER ED.M Performed By: #### L 400.0001 #### [facility] [address] [place], [address] PROT DIPSTX Normal Negative [facility] Comment on above: Order Comment: CLEAN CATCH Result Comment: PT D EP ER ED.M Performed By: #### L 400.0001 #### [facility] [address] [place], [address] RBC Normal 0-5 [facility] Comment on above: Order Comment: CLEAN CATCH Result Comment: PT D EP ER ED.M Performed By: #### L 400.0001 #### [facility] [address] [place], [address] SP.GR. DIPSTX Normal 1.002-1.030 [facility] Comment on above: Order Comment: CLEAN CATCH Result Comment: PT D EP ER ED.M Performed By: #### L 400.0001 #### [facility] [address] [place], [address] UR Preservative Normal [facility] Comment on above: Order Comment: CLEAN CATCH Result Comment: PT D EP ER ED.M Performed By: #### L 400.0001 #### [facility] [address] [place], [address] UROBILI Normal Normal [facility] Comment on above: Order Comment: CLEAN CATCH Result Comment: PT D EP ER ED.M Performed By: #### L 400.0001 #### [facility] [address] [place], [address] WBC Normal 0-5 [facility] Comment on above: Order Comment: CLEAN CATCH Result Comment: PT D EP ER ED.M Performed By: #### L 400.0001 #### [facility] [address] [place], [address] Abdomen/Pelvis W IV Cont ONL Yon 08-26-2024 Abdomen/Pelvis W IV Cont ONLY [facility] [address] [place], [place] [address] Abdomen/Pelvis W IV Cont ONLY MR#: [id number] Acct: [id number] Name: PAT KNIGHT Rep #: [id number] : 1980 F 44 From: Navi Graham MD PCP: Dr. 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 Maile Norman MD [employer]: Signed Normal [facility] CBC W/Diff, Automatedon 03-0 -2024 Absolute Lymph 1.12 X10 3/uL Normal 0.83-4.51 [facility] Comment on above: Performed By: #### L 100.0100, L501.2450, L500.4050, L700.6800 #### [facility] [address] [place], [address] Absolute Neut 19.4 X10 3/uL High 2.0-7.7 [facility] Comment on above: Performed By: #### L 100.0100, L501.2450, L500.4050, L700.6800 #### [facility] [address] [place], [address] Basophils/100 WBC (Bld) 0.3 % Normal 0-1 [facility] Comment on above: Performed By: #### L 100.0100, L501.2450, L500.4050, L700.6800 #### [facility] [address] [place], [address] Eosinophils/100 WBC (Bld) 0.3 % Normal 0-5 [facility] Comment on above: Performed By: #### L 100.0100, L501.2450, L500.4050, L700.6800 #### [facility] [address] [place], [address] Erythrocyte distribution width (RBC) [Ratio] 12.7 % Normal 11.6-14.6 [facility] Comment on above: Performed By: #### L 100.0100, L501.2450, L500.4050, L700.6800 #### [facility] [address] [place], [address] Hematocrit (Bld) [Volume fraction] 50.4 % High 37-47 [facility] Comment on above: Performed By: #### L 100.0100, L501.2450, L500.4050, L700.6800 #### [facility] [address] [place], [address] Hemoglobin (Bld) [Mass/Vol] 17.4 g/dL High 12.0-15.0 [facility] Comment on above: Performed By: #### L 100.0100, L501.2450, L500.4050, L700.6800 #### [facility] [address] [place], [address] IG% 0.400 Normal 0.0-0.9 [facility] Comment on above: Result Comment: IG% - Immature Granulocytes (promyelocytes, myelocytes and metamyelocytes) > 1% indicates that a LEFT SHIFT is Present. Performed By: #### L 100.0100, L501.2450, L500.4050, L700.6800 #### [facility] [address] [place], [address] Lymphocytes/100 WBC (Bld) 5.2 % Low 19-41 [facility] Comment on above: Performed By: #### L 100.0100, L501.2450, L500.4050, L700.6800 #### [facility] [address] [place], [address] MCH (RBC) [Entitic mass] 32.3 pg High 27.0-32.0 [facility] Comment on above: Performed By: #### L 100.0100, L501.2450, L500.4050, L700.6800 #### [facility] [address] [place], [address] MCHC (RBC) [Mass/Vol] 34.5 g/dL Normal 32-36 [facility] Comment on above: Performed By: #### L 100.0100, L501.2450, L500.4050, L700.6800 #### [facility] [address] [place], [address] MCV (RBC) [Entitic vol] 93.7 fL Normal 81-99 [facility] Comment on above: Performed By: #### L 100.0100, L501.2450, L500.4050, L700.6800 #### [facility] [address] [place], [address] Monocytes/100 WBC (Bld) 3.3 % Normal 0-10 [facility] Comment on above: Performed By: #### L 100.0100, L501.2450, L500.4050, L700.6800 #### [facility] [address] [place], [address] Neutrophils/100 WBC (Bld) 90.5 % High 47-70 [facility] Comment on above: Performed By: #### L 100.0100, L501.2450, L500.4050, L700.6800 #### [facility] Laboratory [address] [place], [address] Nucleated RBC (Bld) [#/Vol] 0 10*3/uL Normal 0-5 [facility] Comment on above: Performed By: #### L 100.0100, L501.2450, L500.4050, L700.6800 #### [facility] [address] [place], [address] Platelet mean volume (Bld) [Entitic vol] 9.4 fL Normal 6.2-12.0 [facility] Comment on above: Performed By: #### L 100.0100, L501.2450, L500.4050, L700.6800 #### [facility] [address] [place], [address] Platelets (Bld) [#/Vol] 414 10*3/uL Normal 150-450 [facility] Comment on above: Performed By: #### L 100.0100, L501.2450, L500.4050, L700.6800 #### [facility] [address] [place], [address] RBC (Bld) [#/Vol] 5.38 10*6/uL Normal 4.2-5.4 [facility] Comment on above: Performed By: #### L 100.0100, L501.2450, L500.4050, L700.6800 #### [facility] [address] [place], [address] RDW SD 43.9 fl Normal 35.1-43.9 [facility] Comment on above: Performed By: #### L 100.0100, L501.2450, L500.4050, L700.6800 #### [facility] [address] [place], [address] WBC (Bld) [#/Vol] 21.5 10*3/uL High 4.4-11.0 [facility] Comment on above: Performed By: #### L 100.0100, L501.2450, L500.4050, L700.6800 #### [facility] [address] [place], [address] Comprehensive Metabolic Prof ilon 08-26-2024 Albumin [Mass/Vol] 5.0 g/dL Normal 3.5-5.0 [facility] Comment on above: Performed By: #### L 100.0100, L501.2450, L500.4050, L700.6800 #### [facility] [address] [place], [address] Albumin/Globulin [Mass ratio] 1.5 {ratio} Normal 0.9-2.4 [facility] Comment on above: Performed By: #### L 100.0100, L501.2450, L500.4050, L700.6800 #### [facility] [address] [place], [address] ALK PHOS 83 U/L Normal 35-104 [facility] Comment on above: Performed By: #### L 100.0100, L501.2450, L500.4050, L700.6800 #### [facility] [address] [place], [address] ALT [Catalytic activity/Vol] 11 U/L Normal <=34 [facility] Comment on above: Performed By: #### L 100.0100, L501.2450, L500.4050, L700.6800 #### [facility] [address] [place], [address] Anion gap [Moles/Vol] 15 mmol/L Normal 5-15 [facility] Comment on above: Performed By: #### L 100.0100, L501.2450, L500.4050, L700.6800 #### [facility] [address] [place], [address] AST [Catalytic activity/Vol] 25 U/L Normal <=31 [facility] Comment on above: Result Comment: Hemo lysis present, Results??could be affected. ?? Performed By: #### L 100.0100, L501.2450, L500.4050, L700.6800 #### [facility] [address] [place], [address] Bilirubin [Mass/Vol] 0.50 mg/dL Normal 0.00-1.30 [facility] Comment on above: Performed By: #### L 100.0100, L501.2450, L500.4050, L700.6800 #### [facility] [address] [place], [address] BUN/CRE 9.2 RATIO Low 10-20 [facility] Comment on above: Performed By: #### L 100.0100, L501.2450, L500.4050, L700.6800 #### [facility] [address] [place], [address] Calcium [Mass/Vol] 9.4 mg/dL Normal 7.6-11.0 [facility] Comment on above: Performed By: #### L 100.0100, L501.2450, L500.4050, L700.6800 #### [facility] [address] [place] [place], [address] Chloride [Moles/Vol] 104 mmol/L Normal 96-108 [facility] Comment on above: Performed By: #### L 100.0100, L501.2450, L500.4050, L700.6800 #### [facility] [address] [place] [place], [address] CO2 [Moles/Vol] 25.8 mmol/L Normal 22.0-29.0 [facility] Comment on above: Performed By: #### L 100.0100, L501.2450, L500.4050, L700.6800 #### [facility] [address] [place] [place], [address] Creatinine [Mass/Vol] 0.93 mg/dL Normal 0.70-1.20 [facility] Comment on above: Performed By: #### L 100.0100, L501.2450, L500.4050, L700.6800 #### [facility] [address] [place], [address] ECRCL 70.14 ml/min Normal 50-250 [facility] Comment on above: Performed By: #### L 100.0100, L501.2450, L500.4050, L700.6800 #### [facility] [address] [place], [address] GFR/1.73 sq M.predicted among non-blacks MDRD (S/P/Bld) [Vol rate/Area] 79 mL/min/{1.73_m2} Normal >60 [facility] Comment on above: Result Comment: mL/m in/1.73m2 CKD-EPI Creatinine Equation (2020) Performed By: #### L 100.0100, L501.2450, L500.4050, L700.6800 #### [facility] [address] [place], [address] Globulin (S) [Mass/Vol] 3.3 g/dL Normal 2.2-4.2 [facility] Comment on above: Performed By: #### L 100.0100, L501.2450, L500.4050, L700.6800 #### [facility] [address] [place], [address] Glucose [Mass/Vol] 129 mg/dL High 70-99 [facility] Comment on above: Performed By: #### L 100.0100, L501.2450, L500.4050, L700.6800 #### [facility] [address] [place], [address] Potassium [Moles/Vol] 3.9 mmol/L Normal 3.3-5.1 [facility] Comment on above: Result Comment: Hemo lysis present, Results??could be affected. ?? Performed By: #### L 100.0100, L501.2450, L500.4050, L700.6800 #### [facility] [address] [place], [address] Sodium [Moles/Vol] 145 mmol/L Normal 133-145 [facility] Comment on above: Performed By: #### L 100.0100, L501.2450, L500.4050, L700.6800 #### [facility] [address] [place], [address] T PROT 8.3 g/dL Normal 5.9-8.4 [facility] Comment on above: Performed By: #### L 100.0100, L501.2450, L500.4050, L700.6800 #### [facility] [address] [place], [address] Urea nitrogen [Mass/Vol] 9 mg/dL Normal 4-19 [facility] Comment on above: Performed By: #### L 100.0100, L501.2450, L500.4050, L700.6800 #### [facility] [address] [place], [address] Emergency Department Summary on 08-26-2024 Emergency Department Summary [facility] Medical Records Department [address] [place] [address] Emergency Department Summary 08/26/24 MR#: [id number] Acct: [id number] Name: PAT KNIGHT Rep #: [id number] : 1980 44 From: Xavi Biggs MD [...] was several years ago. Here for evaluation. [facility] Medical History Marijuana use Right rotator [...] auscultation bilaterally. (more content not included)... Normal [facility] Lipaseon 08-26-2024 Lipase [Catalytic activity/Vol] 79 U/L High 13-75 [facility] Comment on above: Result Comment: Padma gee note: LIPASE revised reference range effective 22. New Lipase methodology. Expected to produce lower values than the previous assay method. NEW Reference Range: 13 - 75 U/L Performed By: #### L 100.0100, L501.2450, L500.4050, L700.6800 #### [facility] [address] [place], [address] M100.678on 08-26-2024 M100.678 Pending SARS-CoV-2 (COVID 19) Negative INFLUENZA A Negative INFLUENZA B Negative RSV PCR Negative Normal [facility] Comment on above: Performed By: #### M 100.678 ####[facility] [address] [place], [address] ,Serum,hCG Quali.on 08-26-2024 HCG, SERUM QUAL Negative Normal [facility] Comment on above: Performed By: #### L 700.6800 #### [facility] [address] [place], [address] Urinalysis, Completeon 08-26 AMORPHOUS 1+ URATE Normal [facility] Comment on above: Order Comment: CANDIDO CTOR TO SPECIFY Performed By: #### L 400.0001 #### [facility] [address] [place], [address] EPI,SQUAMOUS 0-5 SEEN Normal 5-10 [facility] Comment on above: Order Comment: CANDIDO CTOR TO SPECIFY Performed By: #### L 400.0001 #### [facility] [address] [place], [address] RBC 0-5 SEEN Normal 0-5 [facility] Comment on above: Order Comment: CANDIDO CTOR TO SPECIFY Performed By: #### L 400.0001 #### [facility] [address] [place], [address] WBC 0-5 SEEN Normal 0-5 [facility] Comment on above: Order Comment: CANDIDO CTOR TO SPECIFY Performed By: #### L 400.0001 #### [facility] [address] [place], [address] BACTERIA 0 SEEN Normal None Seen [facility] Comment on above: Order Comment: CANDIDO CTOR TO SPECIFY Performed By: #### L 400.0001 #### [facility] [address] [place], [address] Mucus Ql (Urine sed) 0 SEEN Normal [facility] Comment on above: Order Comment: COLLE CTOR TO SPECIFY Performed By: #### L 400.0001 #### [facility] [address] [place], [address] CNPNon 08-18-2024 CNPN Normal [facility] Plastic Surgery Visit Report on 08-14-2024 Plastic Surgery Visit Report [facility] Plastic Reconstructive Surgery [address] [place] [address] OFFICE VISIT Date of Service: 08/14/24 MR#: [id number] Acct: [id number] Name: PAT KNIGHT Rep #: [id number] : 1980 Provider: Dr. Constanza esposito MD Age/Sex: 44/F Location: [facility] Status: Signed Intake Vital Signs 07/20/24 [...] MD Cosign Signature: Date (if applicable) CC: [facility] CNPNon 08-08-2024 CNPN [facility] Large Joint Arthro/Inj: R sh mansi [...] the patient voiced understanding of these instructions. [facility] CNOVon 07-31-2024 CNOV [facility] CNOVon 07-27-2024 CNOV [facility] Emergency Department Summary on 07-20-2024 Emergency Department Summary [facility] Medical Records Department [address] [place] [address] Emergency Department Summary 07/20/24 MR#: [id number] Acct: [id number] Name: PAT KNIGHT Rep #: [id number] : 1980 44 From: Cesar Meneses DO [...] days. Therefore since she has been taking wbyt-xat-nkectqd medication as well as her prescription medication without symptom improvement she presents for pain control. [facility] Medical History Marijuana use Right rotator [...] intact; AIN/ (more content not included)... Normal [facility] Discharge Instructionon 06-28 Discharge Instruction [facility] Medical Records Department [address] [place] [address] Instructions for Home/Discharge Instructions 07/19/24 1251 MR#: [id number] Acct: [id number] Name: PAT KNIGHT Rep #: [id number] : 1980 44 From: Constanza Cordova MD PCP: Dr. Maile Norman MD Status:REG [facility] Discharge Instructions Dressing / Incision Additional Dressing/Incision [...] Care Provider: Maile Norman Instructions Print Language: American Discharge Orders/Prescriptions Prescriptions: New cephalexin 500 mg [...] MD CC: Dr. Maile Norman MD Signed [facility] MR/POSTOP.ANEon 07-19-2024 MR/POSTOP.[facility] Medical Records Department [address] [place] [address] Anesthesia Postop Eval I 07/19/24 1257 MR#: [id number] Acct: [id number] Name: PAT KNIGHT Rep #: [id number] : 1980 44 From: Trinity Wright CRNA PCP: Dr. Maile Norman MD Status:[facility] Y Race: C Location: [place] [address] Anesthesia: Postop Eval I Current Vital Signs [...] Wright CRNA Cosigner Signature: Date CC: Signed [facility] MR/[id number] 07-19-2024 MR/POSTOPAN2 [facility] Medical Records Department [address] [place] [address] Anesthesia Postop Eval II 07/19/24 1914 MR#: [id number] Acct: [id number] Name: PAT KNIGHT Rep #: [id number] : 1980 44 From: Samy Rae MD PCP: Dr. Maile Norman MD Status:[facility] Y Race: C Location: [facility] Anesthesia Postop Eval I Sum Postop Eval Completion status Anesthesia document: Postop Eval 1 completed: Yes Anesthesia Postop Eval I Summary Anesthesia Postop Eval I Summary: Anesthesia Postop Eval I: Assessment Summary Airway patent Yes 07/19/24 12:58 [email or web address] Spontaneous unlabored Yes 07/19/24 12:58 [email or web address] respirations Mental status Awake 07/19/24 12:58 [email or web address] nausea No 07/19/24 12:58 [email or web address].JSWI Vomiting No 07/19/24 12:58 [email or web address].JSWI Anesthesia Postop Eval I: Fluid Summary Crystalloid volume administer 1,200 07/19/24 12:58 ORTHOPTIST.JSWI (ml) Colloids volume administered ( ml) Blood Product volume administered (ml) Total IV fluid infused 1,200 07/19/24 12:58 [email or web address] Anesthesia Postop Eval I: Summary Notes Anesthesia Complication No 07/19/24 12:58 [email or web address] Anesthesia Complication Comment: Post-operative progress note Anesthesia: Postop Eval II Evaluation Mental status: Awake and Calm Pain Level: 1 nausea: No Vomiting: No Complications Anesthesia Complication: No 07/19/24 1914 Date Samy Rae MD Cosigner Signature: Date CC: Signed Normal [facility] Operative Reporton 5 Operative Report [facility] Medical Records Department [address] [place] [address] Operative Report 07/19/24 1254 MR#: [id number] Acct: [id number] Name: PAT KNIGHT Rep #: [id number] : 1980 44 From: Constanza Cordova MD PCP: Dr. Maile Norman MD Status:[facility] Location: [place] [address] Problems Associated Problem List Diagnoses (1) Neoplasm of uncertain behavior of connective and other soft tissue: Operative Report (Standard) Operative Information Date of Procedure: 07/19/24 Pre-Operative Diagnosis: Subcutaneous cyst left forearm Post-Operative Diagnosis: Same Surgery/Procedure Performed: Excision cyst left forearm (3.0 cm) deckhand: No Type of Anesthesia: General RN Documented [...] Documentation VTE Mechan Device Prophylaxis: SCD's 07/19/24 4704 Cosigner Signature (if applicable): CC: Dr. Maile Norman MD; Dr. Constanza Cordova MD Signed Normal [facility] Surgery Specimen Level IIIon 07-19-2024 Surgery Specimen Level III -------- Patient Age/Sex Location Account Attending Physician -------- PAT KNIGHT 44/F [facility] [id number] Dr. Constanza Cordova MD -------- Specimen: [id number] Received: 07/19/24 Status: JEAN Bro Num: [id number] Spec Type: Cyst Subm Dr: Dr. Constanza [...] submitted entirely in one cassette. 07/19/2024 TC:2 CPT:59963 -------- Patient Age/Sex Location Account Attending Physician -------- PAT KNIGHT 44/F [facility] [id number] Dr. Constanza Cordova MD -------- Signed (signature on file) Dr. Dusty Armstrong MD 07/20/24 1244 -------- Normal [facility] Comment on above: Performed By: #### P SUIII ####[facility] [address] [place], [address] CNPNon 07-16-2024 CNPN Normal [facility] CBC W Auto Differential pane l (Bld)on 07-13-2024 Basophils (Bld) [#/Vol] 0.10 10*3/uL [facility] Basophils/100 WBC (Bld) 1.0 % [facility] Differential cell count method Nom (Bld) Auto [facility] Eosinophils (Bld) [#/Vol] 0.27 10*3/uL [facility] Eosinophils/100 WBC (Bld) 2.7 % [facility] Erythrocyte distribution width (RBC) [Ratio] 12.2 % 11.5 - 15.0 % [facility] Hematocrit (Bld) [Volume fraction] 41.9 % 36.0 - 46.0 % [facility] Hemoglobin (Bld) [Mass/Vol] 14.2 g/dL 11.5 - 15.5 g/dL [facility] Immature granulocytes (Bld) [#/Vol] 0.03 10*3/uL [facility] Immature granulocytes/100 WBC (Bld) 0.3 % [facility] Lymphocytes (Bld) [#/Vol] 3.19 10*3/uL [facility] Lymphocytes/100 WBC (Bld) 32.4 % [facility] MCH (RBC) [Entitic mass] 32.1 pg 26.0 - 34.[address] [facility] MCHC (RBC) [Mass/Vol] 33.9 g/dL 30.5 - 36.0 g/dL [facility] MCV (RBC) [Entitic vol] 94.6 fL 80.0 - 100.[address] [facility] Monocytes (Bld) [#/Vol] 0.74 10*3/uL [facility] Monocytes/100 WBC (Bld) 7.5 % [facility] Neutrophils (Bld) [#/Vol] 5.52 10*3/uL [facility] Neutrophils/100 WBC (Bld) 56.1 % [facility] Nucleated RBC (Bld) [#/Vol] NINF [facility] Nucleated RBC/100 WBC (Bld) [Ratio] 0.0 % /[address] [facility] Platelet mean volume (Bld) [Entitic vol] 9.6 fL 9.0 - 12.[address] [facility] Platelets (Bld) [#/Vol] 308 10*3/uL [facility] RBC (Bld) [#/Vol] 4.43 10*6/uL 3.90 - 5.2 0 m/uL [facility] WBC (Bld) [#/Vol] 9.85 10*3/uL [facility] Basophils (Bld) [#/Vol] 0.10 10*3/uL Normal <0.11 [facility] Comment on above: Order Comment: Speci men Type: BLOOD SPECIMENOrdering Facility: [facility] Address: [address] [place] [address] Performed By: #### 5 7021-8 ####[facility] LABCLIA [id number] [place] [address] [place] Basophils/100 WBC (Bld) 1.0 % Normal [facility] Comment on above: Order Comment: Speci men Type: BLOOD SPECIMENOrdering Facility: [facility] Address: [address] [place] [address] Performed By: #### 5 7021-8 ####[facility] LABIA [id number] [place] [address] [place] Differential cell count method Nom (Bld) Auto Normal [facility] Comment on above: Order Comment: Speci men Type: BLOOD SPECIMENOrdering Facility: [facility] Address: [address] [place] [address] Performed By: #### 5 7021-8 ####[facility] LABCLIA [id number] [place] [address] [place] Eosinophils (Bld) [#/Vol] 0.27 10*3/uL Normal <0.46 [facility] Comment on above: Order Comment: Speci men Type: BLOOD SPECIMENOrdering Facility: [facility] Address: [address] [place] [address] Performed By: #### 5 7021-8 ####[facility] LABCLIA [id number] [place] [address] [place] Eosinophils/100 WBC (Bld) 2.7 % Normal [facility] Comment on above: Order Comment: Speci men Type: BLOOD SPECIMENOrdering Facility: [facility] Address: [address] [place] [address] Performed By: #### 5 7021-8 ####[facility] LABCLIA [id number] [place] [address] [place] Erythrocyte distribution width (RBC) [Ratio] 12.2 % Normal 11.5-15.0 [facility] Comment on above: Order Comment: Speci men Type: BLOOD SPECIMENOrdering Facility: [facility] Address: [address] [place] [address] Performed By: #### 5 7021-8 ####[facility] LABCLIA [id number] [place] [address] [place] Hematocrit (Bld) [Volume fraction] 41.9 % Normal 36.0-46.0 [facility] Comment on above: Order Comment: Speci men Type: BLOOD SPECIMENOrdering Facility: [facility] Address: [address] [place] [address] Performed By: #### 5 7021-8 ####[facility] LABCLIA [id number] [place] [address] [place] Hemoglobin (Bld) [Mass/Vol] 14.2 g/dL Normal 11.5-15.5 [facility] Comment on above: Order Comment: Speci men Type: BLOOD SPECIMENOrdering Facility: [facility] Address: [address] [place] [address] Performed By: #### 5 7021-8 ####[facility] LABCLIA [id number] [place] [address] [place] Immature granulocytes (Bld) [#/Vol] 0.03 10*3/uL Normal <0.10 [facility] Comment on above: Order Comment: Speci men Type: BLOOD SPECIMENOrdering Facility: [facility] Address: [address] [place] [address] Performed By: #### 5 7021-8 ####[facility] LABCLIA [id number] [place] [address] [place] Immature granulocytes/100 WBC (Bld) 0.3 % Normal [facility] Comment on above: Order Comment: Speci men Type: BLOOD SPECIMENOrdering Facility: [facility] Address: [address] [place] [address] Performed By: #### 5 7021-8 ####[facility] LABCLIA [id number] [place] [address] [place] Lymphocytes (Bld) [#/Vol] 3.19 10*3/uL Normal 1.00-4.00 [facility] Comment on above: Order Comment: Speci men Type: BLOOD SPECIMENOrdering Facility: [facility] Address: [address] [place] [address] Performed By: #### 5 7021-8 ####[facility] LABCLIA [id number] [place] [address] [place] Lymphocytes/100 WBC (Bld) 32.4 % Normal [facility] Comment on above: Order Comment: Speci men Type: BLOOD SPECIMENOrdering Facility: [facility] Address: [address] [place] [address] Performed By: #### 5 7021-8 ####[facility] LABCLIA [id number] [place] [address] [place] MCH (RBC) [Entitic mass] 32.1 pg Normal 26.0-34.0 [facility] Comment on above: Order Comment: Speci men Type: BLOOD SPECIMENOrdering Facility: [facility] Address: [address] [place] [address] Performed By: #### 5 7021-8 ####[facility] LABIA [id number] [place] [address] [place] MCHC (RBC) [Mass/Vol] 33.9 g/dL Normal 30.5-36.0 [facility] Comment on above: Order Comment: Speci men Type: BLOOD SPECIMENOrdering Facility: [facility] Address: [address] [place] [address] Performed By: #### 5 7021-8 ####[facility] LABIA [id number] [place] [address] [place] MCV (RBC) [Entitic vol] 94.6 fL Normal 80.0-100.0 [facility] Comment on above: Order Comment: Speci men Type: BLOOD SPECIMENOrdering Facility: [facility] Address: [address] [place] [address] Performed By: #### 5 7021-8 ####[facility] LABCLIA [id number] [place] [address] [place] Monocytes (Bld) [#/Vol] 0.74 10*3/uL Normal <0.87 [facility] Comment on above: Order Comment: Speci men Type: BLOOD SPECIMENOrdering Facility: [facility] Address: [address] [place] [address] Performed By: #### 5 7021-8 ####[facility] LABCLIA [id number] [place] [address] [place] Monocytes/100 WBC (Bld) 7.5 % Normal [facility] Comment on above: Order Comment: Speci men Type: BLOOD SPECIMENOrdering Facility: [facility] Address: [address] [place] [address] Performed By: #### 5 7021-8 ####[facility] LABCLIA [id number] [place] [address] [place] Neutrophils (Bld) [#/Vol] 5.52 10*3/uL Normal 1.45-7.50 [facility] Comment on above: Order Comment: Speci men Type: BLOOD SPECIMENOrdering Facility: [facility] Address: [address] [place] [address] Performed By: #### 5 7021-8 ####[facility] LABCLIA [id number] [place] [address] [place] Neutrophils/100 WBC (Bld) 56.1 % Normal [facility] Comment on above: Order Comment: Speci men Type: BLOOD SPECIMENOrdering Facility: [facility] Address: [address] [place] [address] Performed By: #### 5 7021-8 ####[facility] LABCLIA [id number] [place] [address] [place] Nucleated RBC (Bld) [#/Vol] 10*3/uL Normal <0.01 [facility] Comment on above: Order Comment: Speci men Type: BLOOD SPECIMENOrdering Facility: [facility] Address: [address] [place] [address] Performed By: #### 5 7021-8 ####[facility] LABCLIA [id number] [place] [address] [place] Nucleated RBC/100 WBC (Bld) [Ratio] 0.0 /100 WBC Normal [facility] Comment on above: Order Comment: Speci men Type: BLOOD SPECIMENOrdering Facility: [facility] Address: [address] [place] [address] Performed By: #### 5 7021-8 ####[facility] LABIA [id number] [place] [address] [place] Platelet mean volume (Bld) [Entitic vol] 9.6 fL Normal 9.0-12.7 [facility] Comment on above: Order Comment: Speci men Type: BLOOD SPECIMENOrdering Facility: [facility] Address: [address] [place] [address] Performed By: #### 5 7021-8 ####[facility] LABIA [id number] [place] [address] [place] Platelets (Bld) [#/Vol] 308 10*3/uL Normal 150-400 [facility] Comment on above: Order Comment: Speci men Type: BLOOD SPECIMENOrdering Facility: [facility] Address: [address] [place] [address] Performed By: #### 5 7021-8 ####[facility] LABIA [id number] [place] [address] [place] RBC (Bld) [#/Vol] 4.43 10*6/uL Normal 3.90-5.20 [facility] Comment on above: Order Comment: Speci men Type: BLOOD SPECIMENOrdering Facility: [facility] Address: [address] [place] [address] Performed By: #### 5 7021-8 ####[facility] LABIA [id number] [place] [address] [place] WBC (Bld) [#/Vol] 9.85 10*3/uL Normal 3.70-11.00 [facility] Comment on above: Order Comment: Speci men Type: BLOOD SPECIMENOrdering Facility: [facility] Address: [address] [place] [address] Performed By: #### 5 7021-8 ####[facility] LABCLIA [id number] [place] [address] [place] CNOVon 07-13-2024 CNOV Normal [facility] Comprehensive metabolic 2000 panelon 07-13-2024 Albumin [Mass/Vol] 3.8 g/dL Low 3.9-4.9 [facility] Comment on above: Order Comment: Speci men Type: BLOOD SPECIMENOrdering Facility: [facility] Address: [address] [place] [address] Performed By: #### 2 4323-8 ####[facility] LABCLIA [id number] [place] [address] [place] ALP [Catalytic activity/Vol] 67 U/L Normal 34-123 [facility] Comment on above: Order Comment: Speci men Type: BLOOD SPECIMENOrdering Facility: [facility] Address: [address] [place] [address] Performed By: #### 2 4323-8 ####[facility] LABCLIA [id number] [place] [address] [place] ALT [Catalytic activity/Vol] 18 U/L Normal 7-38 [facility] Comment on above: Order Comment: Speci men Type: BLOOD SPECIMENOrdering Facility: [facility] Address: [address] [place], [place] [address] Performed By: #### 2 4323-8 ####[facility] LABCLIA [id number] [place] [id number] [place] Anion gap [Moles/Vol] 6 mmol/L Low 8-15 [facility] Comment on above: Order Comment: Speci men Type: BLOOD SPECIMENOrdering Facility: [facility] Address: [address] [place], [place] [address] Performed By: #### 2 4323-8 ####[facility] LABCLIA [id number] [place] [address] [place] AST [Catalytic activity/Vol] 21 U/L Normal 13-35 [facility] Comment on above: Order Comment: Speci men Type: BLOOD SPECIMENOrdering Facility: [facility] Address: [address] [place] [address] Performed By: #### 2 4323-8 ####[facility] LABCLIA [id number] [place] [address] [place] Bilirubin [Mass/Vol] mg/dL Low 0.2-1.3 [facility] Comment on above: Order Comment: Speci men Type: BLOOD SPECIMENOrdering Facility: [facility] Address: [address] [place] [address] Performed By: #### 2 4323-8 ####[facility] LABCLIA [id number] [place] [address] [place] Calcium [Mass/Vol] 9.0 mg/dL Normal 8.5-10.2 [facility] Comment on above: Order Comment: Speci men Type: BLOOD SPECIMENOrdering Facility: [facility] Address: [address] [place] [address] Performed By: #### 2 4323-8 ####[facility] LABCLIA [id number] [place] [address] [place] Chloride [Moles/Vol] 105 mmol/L Normal 98-107 [facility] Comment on above: Order Comment: Speci men Type: BLOOD SPECIMENOrdering Facility: [facility] Address: [address] [place], [place] [address] Performed By: #### 2 4323-8 ####[facility] LABCLIA [id number] [place] [address] [place] CO2 [Moles/Vol] 30 mmol/L Normal 22-30 [facility] Comment on above: Order Comment: Speci men Type: BLOOD SPECIMENOrdering Facility: [facility] Address: [address] [place] [id number] Performed By: #### 2 4323-8 ####[facility] LABIA [id number] [place] [address] [place] Creatinine [Mass/Vol] 0.79 mg/dL Normal 0.58-0.96 [facility] Comment on above: Order Comment: Specmarianna men Type: BLOOD SPECIMENOrdering Facility: [facility] Address: [address] [place] [address] Performed By: #### 2 4323-8 ####[facility] LABIA [id number] [place] [address] [place] Creatinine and Glomerular filtration rate.predicted panel (S/P/Bld) 96 mL/min/1.73m??? Normal >=60 [facility] Comment on above: Order Comment: Luana [place] Type: BLOOD SPECIMENOrdering Facility: [facility] Address: [address] [place] [address] Result Comment: Cristal mated Glomerular Filtration Rate [...] actual GFR. Performed By: #### 2 4323-8 ####[facility] LABIA [id number] [place] [address] [place] Glucose [Mass/Vol] 68 mg/dL Low 74-99 [facility] Comment on above: Order Comment: Anai men Type: BLOOD SPECIMENOrdering Facility: [facility] Address: [address] [place] [address] Result Comment: The [place] Diabetes Association (ADA) provides guidance for cutoff [...] Standards of Medical Care in Diabetes 2016, [place] Diabetes Association. Diabetes Care. 2016.39(Suppl 1). Performed By: #### 2 4323-8 ####[facility] LABCLIA [id number] [place] [address] [place] Potassium [Moles/Vol] 4.3 mmol/L Normal 3.7-5.1 [facility] Comment on above: Order Comment: Speci men Type: BLOOD SPECIMENOrdering Facility: [facility] Address: [address] [place] [address] Performed By: #### 2 4323-8 ####[facility] LABCLIA [id number] [place] [address] [place] Protein [Mass/Vol] 5.9 g/dL Low 6.3-8.0 [facility] Comment on above: Order Comment: Speci men Type: BLOOD SPECIMENOrdering Facility: [facility] Address: [address] [place] [address] Performed By: #### 2 4323-8 ####[facility] LABCLIA [id number] [place] [address] [place] Sodium [Moles/Vol] 141 mmol/L Normal 136-144 [facility] Comment on above: Order Comment: Speci men Type: BLOOD SPECIMENOrdering Facility: [facility] Address: [address] [place] [address] Performed By: #### 2 4323-8 ####[facility] LABCLIA [id number] [place] [address] [place] Urea nitrogen [Mass/Vol] 8 mg/dL Normal 7-21 [facility] Comment on above: Order Comment: Speci men Type: BLOOD SPECIMENOrdering Facility: [facility] Address: [address] [place] [address] Performed By: #### 2 4323-8 ####[facility] LABCLIA [id number] [place] [address] [place] CNOVon 07-11-2024 CNOV Normal [facility] Estradiol SerPl-mCncon 07-10 E2 [Mass/Vol] 380 pg/mL Normal [facility] Comment on above: Order Comment: Speci men Type: BLOOD SPECIMENOrdering Facility: [facility] Address: [address] [place] [address] Result Comment: This test is not suitable for patients receiving treatment with the drug Fulvestrant (Faslodex). The drug causes an interference leading to falsely elevated estradiol results.Menstrual cycle Estradiol reference ranges:Follicular : < 234 pg/mLOvulation : 41 to 398 pg/mLLuteal : < 342 pg/mLPregnancy Estradiol reference ranges vary by gestational period:First trimester : 154 to 3243 pg/mLSecond trimester : 1561 to 54181 pg/mLThird trimester : 8285 to >36662 pg/mLPost-menopausal Estradiol reference range: < 41 pg/mLReference: 1. Estradiol - E2 (Estradiol III) [package insert V 3.0 American]. [facility], [place], [place], November 2015. Performed By: #### 1 5067-2, 2243-4 ####[facility] LABCLIA [id number] [place] [address] [place] FSH SerPl-aCncon 07-10-2024 Follitropin Qn 13.9 m[IU]/mL Normal See comment Karolyn and [facility] Comment on above: Order Comment: Speci men Type: BLOOD SPECIMENOrdering Facility: [facility] Address: [address] [place] [address] Result Comment: Refe rence range: Follicular: 3.5-12.5 mIU/mL Ovulation: 4.7-21.5 mIU/mL Luteal: 1.7-7.7 mIU/mL Postmenopausal: 25.8-134.8 mIU/mL Performed By: #### 1 5067-2, 2243-4 ####[facility] LABCLIA [id number] [facility] [id number] [address] [place] Plastic Surgery Visit Report on 07-10-2024 Plastic Surgery Visit Report [facility] [address], [address] [place] [address] OFFICE VISIT Date of Service: 07/10/24 MR#: [id number] Acct: [id number] Name: PAT KNIGHT Rep #: [id number] : 1980 Provider: Dr. Constanza esposito MD Age/Sex: 44/F Location: [facility] Status: Signed Intake Vital Signs 07/03/24 09:54 [...] of connect (more content not included)... Normal [facility] CNOVon 07-09-2024 CNOV Normal [facility] HIGH RISK HUMAN PAPILLOMA GENEVA (HPV), PCR FOR DETECTION AND GENOTYPINGon 07-09-2024 HPV 16 Ag Ql (Unsp spec) Not detected Normal Not detected [facility] Comment on above: Order Comment: Speci men Type: FLUID SPECIMENOrdering Facility: [facility] Address: [address] [place] [address] Performed By: #### H PVHRT ####[facility] LABCLIA [id number] [place] [address] [place] HPV 18 Ag Ql (Unsp spec) Not detected Normal Not detected [facility] Comment on above: Order Comment: Speci men Type: FLUID SPECIMENOrdering Facility: [facility] Address: [address] [place] [address] Performed By: #### H PVHRT ####[facility] LABCLIA [id number] [place] [address] [place] HPV 31+33+35+39+45+51+52+ 56+58+59+66+68 DNA MARY KAY+probe Ql (Cvx) Not detected Normal Not detected [facility] Comment on above: Order Comment: Speci men Type: FLUID SPECIMENOrdering Facility: [facility] Address: [address] [place] [address] Result Comment: High Risk HPV Other Type includes HPV types 31, 33, 35, 39, 45, 51, 52, 56, 58, 59, 66 and 68. Performed By: #### H PVHRT ####[facility] LABCLIA [id number] [place] [address] [place] PAP TESTon 07-09-2024 ADEQUACY Normal [facility] Comment on above: Order Comment: Speci men Type: FLUID SPECIMENOrdering Facility: [facility] Address: [address] [place] [address] Result Comment: Sati sfactory for interpretation.Limited cellularity due to acellular background materialNo endocervical component Performed By: #### L [id number] ####[facility] LABIA [id number] [place] [address] [place] CASE REPORT Normal [facility] Comment on above: Order Comment: Speci men Type: FLUID SPECIMENOrdering Facility: [facility] Address: [address] [place] [address] Result Comment: Gyne cologic Cytology Report Case: [id number] Provider: Cecile Herndon APRN.EVP [employer] EXPERIENCE [employer]ATE[employer] Collected: 07/09/2024 08:18 AMOrdering Location: OB/Gynecology Received: 07/09/2024 12:35 PMFirst Screen: Clapacs, ElishaSpecimen: Pap Test, ThinPrep, Cervix Performed By: #### L [id number] ####[facility] LABCLIA [id number] [place] [address] [place] CLINICAL HISTORY, CYTOLOGY, CIVIL CAD DESIGNER Routine Exam Normal [facility] Comment on above: Order Comment: Speci men Type: FLUID SPECIMENOrdering Facility: [facility] Address: [address] [place] [address] Result Comment: No M enses, Other (Specify)ablation Performed By: #### L [id number] ####[facility] LABCLIA [id number] [facility] [place] [address] [place] FINAL PERFORMING LAB Normal [facility] Comment on above: Order Comment: Speci men Type: FLUID SPECIMENOrdering Facility: [facility] Address: [address] [place] [address] Result Comment: Tech nical component, cherry cutter screening performed at [facility], [address] [place] [address] CLIA# [id number] interpretation performed at [facility], [address] [place] [address] [place] [address] CLIA# [id number] Director: Jose Guadalupe Madden M.D. Performed By: #### L [id number] ####[facility] LABCLIA [id number] [place] [address] [place] INTERPRETATION, CYTOLOGY, CIVIL CAD DESIGNER Normal [facility] Comment on above: Order Comment: Speci men Type: FLUID SPECIMENOrdering Facility: [facility] Address: [address] [place] [address] Result Comment: Nega tive for intraepithelial lesion or malignancy. Performed By: #### L [id number] ####[facility] LABCLIA [id number] [address] [address] [place] PAP DISCLAIMER COMMENT The Pap Smear is a screening test for cervical cancer. False negative results occur with all screening tests, emphasizing the need for rescreening at recommended intervals, and clinical correlation. Normal [facility] Comment on above: Order Comment: Speci men Type: FLUID SPECIMENOrdering Facility: [facility] Address: [address] [place] [address] Performed By: #### L [id number] ####[facility] LABCLIA [id number] [address] [address] [place] PAP HEEL STIFFENER COMMENT Normal [facility] Comment on above: Order Comment: Speci men Type: FLUID SPECIMENOrdering Facility: [facility] Address: [address] [place] [address] Performed By: #### L [id number] ####[facility] LABIA [id number] [address] [address] [place] CNPNon 07-07-2024 CNPN Normal [facility] Forearm 2 Viewson 07-03-2024 Forearm 2 Views [facility] Services [address] [place] [address] Forearm 2 Views MR#: [id number] Acct: [id number] Name: PAT KNIGHT Rep #: [id number] : 1980 F 44 From: Tim Garcia MD PCP: Dr. Maile Norman MD Status: REG I Study: Forearm 2 Views Date of Exam: 07/03/24 Exam# [id number] Ordering Dr: Constanza Cordova MD [id number] STUDY: X-RAY - LEFT RADIUS AND ULNA [...] 16:05 EST Reading Location ID and State: [facility] / [place] , Service support , CC: Dr. Maile Norman MD; Dr. Constanza Cordova MD [employer]: Signed Normal [facility] Plastic Surgery Visit Report on 07-03-2024 Plastic Surgery Visit Report [facility] [address] [facility], [address] [place], [place] [id number] OFFICE VISIT Date of Service: 07/03/24 MR#: [id number] Acct: [id number] Name: PAT KNIGHT Rep #: [id number] : 1980 Provider: Dr. Constanza esposito MD Age/Sex: 44/F Location: [facility] Status: Signed Intake Vital Signs 06/06/24 13:34 [...] pt here with for result of ultrasound [facility] Medical History Right rotator cuff tear [...] vis,est,level 3 (more content not included)... Normal [facility] Emergency Department Summary on 07-02-2024 Emergency Department Summary [facility] Medical Records Department [address] [facility] [place] [address] Emergency Department Summary 07/02/24 MR#: [id number] Acct: [id number] Name: PAT KNIGHT Rep #: [id number] : 1980 44 From: John Bass DO [...] Excedrin. Patient denies any recent head injuries. [facility] Medical History Right rotator cuff tear [...] mouth swellin (more content not included)... Normal [facility] Other Unlisted US Procedureo n 06-28-2024 Other Unlisted US Procedure [facility] Imaging Services [address] [place], [place] [id number] Other Unlisted US Procedure MR#: [id number] Acct: [id number] Name: PAT KNIGHT Rep #: [id number] : 1980 F 44 From: Deena Reardon MD PCP: Dr. Maile Norman MD Status: [facility] Study: Other Unlisted US Procedure Date of Exam: 08/21 Exam# [id number] Ordering Dr: Constanza Cordova MD ADDENDUM by Dr. Cristhian Wilhelm MD on 08/16/24 at 1500 This is an addendum to correct report header and technique: Real-Time targeted ultrasound imaging of the soft tissues of the left forearm were obtained. 09/07/24 0757 Date cc: Dr. Maile Norman MD; Dr. Constanza Cordova MD * Signed [id number] EXAM: US ABDOMEN LIMITED CLINICAL INDICATION: lump [...] Maile Norman MD; Dr. Constanza Cordova MD [employer]: Signed [facility] MR Shoulder - right [facility] 06-15-2024 IMPRESSION: 1. Postoperative changes of biceps . 2. Rotator cuff tendinosis without evidence of a high-grade tear. 3. Mild to moderate subdeltoid subacromial bursitis. [employer]: PSCB Transcribe Date/Time: Jun 15 2024 6:15P Dictated by : SHAWNEE BRICE MD This examination was interpreted and the report reviewed and electronically signed by: SHAWNEE BRICE MD on Jun 15 2024 6:24PM [facility] DIVISION OF RADIOLOGY * * *Final Report* * * DATE OF EXAM: Jun 15 2024 1:17PM [facility] 0240 - MRI SHOULDER [facility] RT / PROCEDURE REASON: multiple diagnoses * * * * Physician Interpretation * * * * [facility] H[facility]ORY: TECHNIQUE: Routine non-contrast MRI of [...] DATE OF EXAM: Jun 15 2024 1:17PM [facility] 0240 - MRI SHOULDER WO IVCON [...] 3. Mild to moderate subdeltoid subacromial bursitis. [employer]: DARSHAN Transcribe Date/Time: Jun 15 2024 6:15P Dictated by : SHAWNEE BRICE MD This examination was interpreted and the report reviewed and electronically signed by: SHAWNEE BRICE MD on Jun 15 2024 6:24PM EST [facility] Radiology Study observation (narrative) [facility] MR Shoulder - right WO contr astOrdered By: Ccf Provider on 06-15-[address] [facility] MRI SHOULDER WO IVCON RTon 1 08-16-2023 MRI SHOULDER WO IVCON RT Normal [facility] Plastic Surgery Visit Report on 06-06-2024 Plastic Surgery Visit Report [facility] [address], [address] [place] [id number] OFFICE VISIT Date of Service: 06/06/24 MR#: [id number] Acct: [id number] Name: PAT KNIGHT Rep #: [id number] : 1980 Provider: Dr. Constanza esposito MD Age/Sex: 44/F Location: [facility] Status: Signed Intake Vital Signs 03/18/24 [...] asthma, emphysem (more content not included)... Normal [facility] 06-05-2024 [facility] 05-29-2024 [facility] Normal [facility] 05-25-2024 [facility] XR HAND 3V PA/LAT/OBL RTon 1 07-25-2023 XR HAND 3V PA/LAT/OBL RT Normal [facility] XR Hand - right PA and Later al and Obliqueon 05-25-2024 IMPRESSION: Negative ulnar variance. No acute radiographic abnormalities identified. [employer]: DARSHAN Transcribe Date/Time: May 25 2024 12:08P Dictated by : OTTONIEL OSHEA MD This examination was interpreted and the report reviewed and electronically signed by: OTTONIEL OSHEA MD on May 25 2024 12:10PM [facility] DIVISION OF RADIOLOGY * * *Final Report* [...] soft tissue swelling. DIVISION OF RADIOLOGY Provider, [facility] - 05/25/2024 * * *Final Report* [...] ulnar variance. No acute radiographic abnormalities identified. Vp [employer]: PSCB Transcribe Date/Time: May 25 2024 12:08P Dictated by : OTTONIEL OSHEA MD This examination was interpreted and the report reviewed and electronically signed by: OTTONIEL OSHEA MD on May 25 2024 12:10PM EST [facility] Radiology Study observation (narrative) [facility] XR Hand - right PA and Later al and ObliqueOrdered By: Ccf Provider on 05-25-[address] [facility] CNOVon 05-23-2024 CNOV Normal [facility] CNOVon 05-15-2024 CNOV Normal [facility] CNPNon 05-15-2024 CNPN Normal [facility] CNOVon 05-11-2024 CNOV Normal [facility] HSV+VZV DNA MARY KAY+probe Ql (Un sp spec)on 05-11-2024 HSV 1 DNA MARY KAY+probe Ql (Unsp spec) Not detected Normal Not Detected [facility] Comment on above: Order Comment: Speci men Type: SWABOrdering Facility: [facility] Address: [address] [place] [address] Performed By: #### 3 3027-4 ####[facility] LABCLIA [id number] [place] [address] [place] HSV 2 DNA MARY KAY+probe Ql (Unsp spec) Not detected Normal Not Detected [facility] Comment on above: Order Comment: Speci men Type: SWABOrdering Facility: [facility] Address: [address] [place] [address] Performed By: #### 3 3027-4 ####[facility] LABCLIA [id number] [place] [address] [place] VZV DNA MARY KAY+probe Ql (Unsp spec) Not detected Normal Not Detected [facility] Comment on above: Order Comment: Speci men Type: SWABOrdering Facility: [facility] Address: [address] [place] [address] Performed By: #### 3 3027-4 ####[facility] LABCLIA [id number] [place] [address] [place] CNOVon 05-10-2024 CNOV Normal [facility] XR FOREARM 2V AP/LAT LTon XR FOREARM 2V AP/LAT LT Normal [facility] XR Radius and Ulna - left AP and Lateralon 05-10-2024 IMPRESSION: No acute osseous abnormality [employer]: DARSHAN Transcribe Date/Time: May 10 2024 12:29P [...] maintained. IMPRESSION IMPRESSION: No acute osseous abnormality [employer]: PSCB Transcribe Date/Time: May 10 2024 12:29P Dictated by : ZACHERY RO MD This examination was interpreted and the report reviewed and electronically signed by: ZACHERY RO MD on May 10 2024 12:30PM EST [facility] Radiology Study observation (narrative) [facility] XR Radius and Ulna - left AP and LateralOrdered By: Ccf Provider on 05-10-[address] [facility] CT ABDOMEN/PELVIS W/O CONTRA STon 04-29-2024 [...] 9:43:43 PM Ordering Provider: JUAN MIGUEL Solo [facility] LABORATORYOrdered By: Carmen Moreira on 04-29-2024 [...] SS UAon 04-29-2024 Color (U) Yellow Normal [facility] Comment on above: Performed By: #### U A #### [place] [address] Glucose (U) [Mass/Vol] Negative Normal Negative [facility] Comment on above: Performed By: #### U A #### [place] [address] Ketones Ql (U) Negative Normal Negative [facility] Comment on above: Performed By: #### U A #### [place] [address] UA Appear Clear Normal Clear [facility] Comment on above: Performed By: #### U A #### [place] [address] UA Blood Negative Normal Negative [facility] Comment on above: Performed By: #### U A #### [place] [address] UA Leuk Est Negative Normal Negative [facility] Comment on above: Performed By: #### U A #### [place] [address] UA Nitrite Negative Normal Negative [facility] Comment on above: Performed By: #### U A #### [place] [address] UA pH 6.5 Normal 5.0 - 8.0 [facility] Comment on above: Performed By: #### U A #### [place] [address] UA Protein Negative Normal Negative [facility] Comment on above: Performed By: #### U A #### [address] [address] UA Spec Grav 1.015 Normal 1.015-1.025 [facility] Comment on above: Performed By: #### U A #### [place] [address] [place], [place] [address] UA Specimen Type Clean Catch Normal [facility] Comment on above: Performed By: #### U A #### [place] [address] [place], [place] [address] UA Urobilinogen 0.2 E.U./dL Normal 0.2-1.0 [facility] Comment on above: Performed By: #### U A #### [place] [address] Urobilinogen (U) [Mass/Vol] Negative Normal Negative [facility] Comment on above: Performed By: #### U A #### [place] [id number] CNOVon 04-25-2024 CNOV Normal [facility] CNPNon 04-17-2024 CNPN Normal [facility] CNOVon 04-13-2024 CNOV Normal [facility] CNOVon 03-28-2024 CNOV Normal [facility] CNPNon 03-23-2024 CNPN Normal [facility] Brain/Head without Contrasto n 03-18-2024 Brain/Head without Contrast [facility] Imaging Services [address] [place] [address] Brain/Head without Contrast MR#: [id number] Acct: [id number] Name: PAT KNIGHT Rep #: [id number] : 1980 F 44 From: [facility] PCP: Dr. Maile Norman MD Status: REG ER Study: Brain/Head without Contrast Date of Exam: 02/26 08/20 Exam# [id number] Ordering Dr: Prasanth Keith DO [id number] EXAM: CT HEAD WITHOUT INTRAVENOUS CONTRAST CLINICAL [...] 15:39 EDT Reading Location ID and State: [facility] / [place] , Service support , CC: Dr. Maile Norman MD; Dr. Prasanth Keith DO [employer]: Signed Normal [facility] Elbow min 3 Viewson 03-18-20 Elbow min 3 Views [facility] Imaging Services [address] [place], [place] [id number] Elbow min 3 Views MR#: [id number] Acct: [id number] Name: PAT KNIGHT Rep #: [id number] : 1980 F 44 From: [facility] PCP: Dr. Maile Norman MD Status: REG ER Study: Elbow min 3 Views Date of Exam: 03/18/24 Exam# [id number] Ordering Dr: Prasanth Keith DO [id number] EXAM: XR LEFT ELBOW COMPLETE, 3 OR [...] 15:39 EDT Reading Location ID and State: [facility] [place] , Service support , CC: Dr. Maile Norman MD; Dr. Prasanth Keith DO [employer]: Signed Normal [facility] Emergency Department Summary on 03-18-2024 Emergency Department Summary [facility] Medical Records Department [address] [place] [address] Emergency Department Summary 03/18/24 MR#: [id number] Acct: [id number] Name: PAT KNIGHT Rep #: [id number] : 1980 44 From: Prasanth Keith DO [...] however denies any suicidal or homicidal ideations. [facility] Medical History Right rotator cuff tear [...] the bi (more content not included)... Normal [facility] Forearm 2 Viewson 03-18-2024 Forearm 2 Views [facility] Imaging Services [address] [place], [place] [address] Forearm 2 Views MR#: [id number] Acct: [id number] Name: PAT KNIGHT Rep #: [id number] : 1980 F 44 From: [facility] PCP: Dr. Maile Norman MD Status: REG ER Study: Forearm 2 Views Date of Exam: 03/18/24 Exam# [id number] Ordering Dr: Prasanth Keith DO [id number] INDICATION: lac EXAMINATION/TECHNIQUE : X-RAY - LEFT [...] 15:40 EDT Reading Location ID [facility] State[facility] [place] , Service support , CC: Dr. Miale Norman MD; Dr. Prasanth Keith DO [employer]: Signed Normal [facility] Sinus/Facial Boneon 03-18-20 Sinus/Facial Bone [facility] Imaging Services [address] [place] [address] Sinus/Facial Bone MR#: [id number] Acct: [id number] Name: PAT KNIGHT Rep #: [id number] : 1980 F 44 From: [facility] PCP: Dr. Maile Norman MD Status: REG ER Study: Sinus/Facial Bone Date of Exam: 03/18/24 Exam# [id number] Ordering Dr: Prasanth Keith DO [id number] EXAM: CT MAXILLOFACIAL WITHOUT INTRAVENOUS CONTRAST CLINICAL [...] 15:37 EDT Reading Location ID and State: [facility] [place] , Service support , CC: Dr. Maile Norman MD; Dr. Prasanth Keith DO [employer]: Signed Normal [facility] Spine Cervical without Contr ason 03-18-2024 Spine Cervical without Contras [facility] Imaging Services [address] [place], [place] [address] Spine Cervical without Contras MR#: [id number] Acct: [id number] Name: PAT KNIGHT Rep #: [id number] : 1980 F 44 From: [facility] PCP: Dr. Maile Norman MD Status: REG ER Study: Spine Cervical without Contras Date of Exam: 0 03/18/24 Exam# [id number] Ordering Dr: Prasanth Keith DO [id number] STUDY: CT Spine Cervical W/O Contrast Injection [...] 15:42 EDT Reading Location ID and State: [facility] / [place] , Service support , CC: Dr. Maile Norman MD; Dr. Prasanth Keith DO [employer]: Signed Normal [facility] CNPNon 03-07-2024 CNPN Normal [facility] XR CHEST 2V FRONTAL/LATon XR CHEST 2V FRONTAL/LAT Normal [facility] XR Chest PA and Lateralon IMPRESSION: No acute radiographic abnormality. [employer]: PSCB Transcribe Date/Time: Mar 07 2024 4:07P Dictated by : ALEX MUNIZ MD This examination was interpreted and the report reviewed and electronically signed by: ALEX MUNIZ MD on Mar 07 2024 4:07PM [facility] DIVISION OF RADIOLOGY * * *Final Report* [...] Mild degenerative changes. DIVISION OF RADIOLOGY [facility] * * *Final Report* [...] changes. IMPRESSION IMPRESSION: No acute radiographic abnormality. [employer]: DARSHAN Transcribe Date/Time: Mar 07 2024 4:07P Dictated by : ALEX MUNIZ MD This examination was interpreted and the report reviewed and electronically signed by: ALEX MUNIZ MD on Mar 07 2024 4:07PM [facility] Radiology Study observation (narrative) [facility] XR Chest PA and LateralOrder ed By: Ccf Provider on 03-07-[address] [facility] CBC W Auto Differential pane l (Bld)on 02-28-2024 Basophils (Bld) [#/Vol] 0.11 10*3/uL High <0.11 [facility] Comment on above: Order Comment: Speci men Type: BLOOD SPECIMENOrdering Facility: [facility] Address: [address] [place] [address] Performed By: #### 5 7021-8 ####[facility] LABCLIA [id number] [place] [address] [place] Basophils/100 WBC (Bld) 1.2 % Normal [facility] Comment on above: Order Comment: Speci men Type: BLOOD SPECIMENOrdering Facility: [facility] Address: [address] [place] [address] Performed By: #### 5 7021-8 ####[facility] LABCLIA [id number] [place] [address] [place] Differential cell count method Nom (Bld) Auto Normal [facility] Comment on above: Order Comment: Speci men Type: BLOOD SPECIMENOrdering Facility: [facility] Address: [address] [place] [address] Performed By: #### 5 7021-8 ####[facility] LABCLIA [id number] [place] [address] [place] Eosinophils (Bld) [#/Vol] 0.24 10*3/uL Normal <0.46 [facility] Comment on above: Order Comment: Speci men Type: BLOOD SPECIMENOrdering Facility: [facility] Address: [address] [place] [address] Performed By: #### 5 7021-8 ####[facility] LABCLIA [id number] [place] [address] [place] Eosinophils/100 WBC (Bld) 2.7 % Normal [facility] Comment on above: Order Comment: Speci men Type: BLOOD SPECIMENOrdering Facility: [facility] Address: [address] [place] [address] Performed By: #### 5 7021-8 ####[facility] LABCLIA [id number] [place] [address] [place] Erythrocyte distribution width (RBC) [Ratio] 12.8 % Normal 11.5-15.0 [facility] Comment on above: Order Comment: Speci men Type: BLOOD SPECIMENOrdering Facility: [facility] Address: [address] [place] [address] Performed By: #### 5 7021-8 ####[facility] LABIA [id number] [place] [address] [place] Hematocrit (Bld) [Volume fraction] 42.9 % Normal 36.0-46.0 [facility] Comment on above: Order Comment: Speci men Type: BLOOD SPECIMENOrdering Facility: [facility] Address: [address] [place] [address] Performed By: #### 5 7021-8 ####[facility] LABIA [id number] [place] [address] [place] Hemoglobin (Bld) [Mass/Vol] 14.2 g/dL Normal 11.5-15.5 [facility] Comment on above: Order Comment: Speci men Type: BLOOD SPECIMENOrdering Facility: [facility] Address: [address] [place] [address] Performed By: #### 5 7021-8 ####[facility] LABCLIA [id number] [place] [address] [place] Immature granulocytes (Bld) [#/Vol] 10*3/uL Normal <0.10 [facility] Comment on above: Order Comment: Speci men Type: BLOOD SPECIMENOrdering Facility: [facility] Address: [address] [place] [address] Performed By: #### 5 7021-8 ####[facility] LABCLIA [id number] [place] [address] [place] Immature granulocytes/100 WBC (Bld) 0.2 % Normal [facility] Comment on above: Order Comment: Speci men Type: BLOOD SPECIMENOrdering Facility: [facility] Address: [address] [place] [address] Performed By: #### 5 7021-8 ####[facility] LABCLIA [id number] [place] [address] [place] Lymphocytes (Bld) [#/Vol] 2.52 10*3/uL Normal 1.00-4.00 [facility] Comment on above: Order Comment: Speci men Type: BLOOD SPECIMENOrdering Facility: [facility] Address: [address] [place] [address] Performed By: #### 5 7021-8 ####[facility] LABCLIA [id number] [place] [address] [place] Lymphocytes/100 WBC (Bld) 28.5 % Normal [facility] Comment on above: Order Comment: Speci men Type: BLOOD SPECIMENOrdering Facility: [facility] Address: [address] [place] [address] Performed By: #### 5 7021-8 ####[facility] LABCLIA [id number] [place] [address] [place] MCH (RBC) [Entitic mass] 32.4 pg Normal 26.0-34.0 [facility] Comment on above: Order Comment: Speci men Type: BLOOD SPECIMENOrdering Facility: [facility] Address: [address] [place] [address] Performed By: #### 5 7021-8 ####[facility] LABCLIA [id number] [place] [address] [place] MCHC (RBC) [Mass/Vol] 33.1 g/dL Normal 30.5-36.0 [facility] Comment on above: Order Comment: Speci men Type: BLOOD SPECIMENOrdering Facility: [facility] Address: [address] [place] [address] Performed By: #### 5 7021-8 ####[facility] LABIA [id number] [place] [address] [place] MCV (RBC) [Entitic vol] 97.9 fL Normal 80.0-100.0 [facility] Comment on above: Order Comment: Speci men Type: BLOOD SPECIMENOrdering Facility: [facility] Address: [address] [place] [address] Performed By: #### 5 7021-8 ####[facility] LABIA [id number] [place] [address] [place] Monocytes (Bld) [#/Vol] 0.57 10*3/uL Normal <0.87 [facility] Comment on above: Order Comment: Speci men Type: BLOOD SPECIMENOrdering Facility: [facility] Address: [address] [place] [address] Performed By: #### 5 7021-8 ####[facility] LABIA [id number] [place] [address] [place] Monocytes/100 WBC (Bld) 6.4 % Normal [facility] Comment on above: Order Comment: Speci men Type: BLOOD SPECIMENOrdering Facility: [facility] Address: [address] [place] [address] Performed By: #### 5 7021-8 ####[facility] LABCLIA [id number] [place] [address] [place] Neutrophils (Bld) [#/Vol] 5.39 10*3/uL Normal 1.45-7.50 [facility] Comment on above: Order Comment: Speci men Type: BLOOD SPECIMENOrdering Facility: [facility] Address: [address] [place] [address] Performed By: #### 5 7021-8 ####[facility] LABCLIA [id number] [place] [address] [place] Neutrophils/100 WBC (Bld) 61.0 % Normal [facility] Comment on above: Order Comment: Speci men Type: BLOOD SPECIMENOrdering Facility: [facility] Address: [address] [place] [address] Performed By: #### 5 7021-8 ####[facility] LABCLIA [id number] [place] [address] [place] Nucleated RBC (Bld) [#/Vol] 10*3/uL Normal <0.01 [facility] Comment on above: Order Comment: Speci men Type: BLOOD SPECIMENOrdering Facility: [facility] Address: [address] [place] [address] Performed By: #### 5 7021-8 ####[facility] LABIA [id number] [place] [address] [place] Nucleated RBC/100 WBC (Bld) [Ratio] 0.0 /100 WBC Normal [facility] Comment on above: Order Comment: Speci men Type: BLOOD SPECIMENOrdering Facility: [facility] Address: [address] [place] [address] Performed By: #### 5 7021-8 ####[facility] LABIA [id number] [place] [address] [place] Platelet mean volume (Bld) [Entitic vol] 10.0 fL Normal 9.0-12.7 [facility] Comment on above: Order Comment: Speci men Type: BLOOD SPECIMENOrdering Facility: [facility] Address: [address] [place] [address] Performed By: #### 5 7021-8 ####[facility] LABIA [id number] [place] [address] [place] Platelets (Bld) [#/Vol] 347 10*3/uL Normal 150-400 [facility] Comment on above: Order Comment: Speci men Type: BLOOD SPECIMENOrdering Facility: [facility] Address: [address] [place] [address] Performed By: #### 5 7021-8 ####[facility] LABCLIA [id number] [place] [address] [place] RBC (Bld) [#/Vol] 4.38 10*6/uL Normal 3.90-5.20 [facility] Comment on above: Order Comment: Speci men Type: BLOOD SPECIMENOrdering Facility: [facility] Address: [address] [place] [address] Performed By: #### 5 7021-8 ####[facility] LABCLIA [id number] [place] [address] [place] WBC (Bld) [#/Vol] 8.85 10*3/uL Normal 3.70-11.00 [facility] Comment on above: Order Comment: Speci men Type: BLOOD SPECIMENOrdering Facility: [facility] Address: [address] [place] [address] Performed By: #### 5 7021-8 ####[facility] LABCLIA [id number] [place] [address] [place] CNOVon 02-28-2024 CNOV Normal [facility] CNPNon 02-28-2024 CNPN Normal [facility] Comprehensive metabolic 2000 panelon 02-28-2024 Albumin [Mass/Vol] 3.9 g/dL Normal 3.9-4.9 [facility] Comment on above: Order Comment: Speci men Type: BLOOD SPECIMENOrdering Facility: [facility] Address: [address] [place] [address] Performed By: #### 2 4323-8 ####[facility] LABCLIA [id number] [place] [address] [place] ALP [Catalytic activity/Vol] 61 U/L Normal 34-123 [facility] Comment on above: Order Comment: Speci men Type: BLOOD SPECIMENOrdering Facility: [facility] Address: [address] [place] [address] Performed By: #### 2 4323-8 ####[facility] LABCLIA [id number] [place] [address] [place] ALT [Catalytic activity/Vol] 13 U/L Normal 7-38 [facility] Comment on above: Order Comment: Speci men Type: BLOOD SPECIMENOrdering Facility: [facility] Address: [address] [place] [address] Performed By: #### 2 4323-8 ####[facility] LABCLIA [id number] [place] [address] [place] Anion gap [Moles/Vol] 11 mmol/L Normal 8-15 [facility] Comment on above: Order Comment: Speci men Type: BLOOD SPECIMENOrdering Facility: [facility] Address: [address] [place] [address] Performed By: #### 2 4323-8 ####[facility] LABCLIA [id number] [place] [address] [place] AST [Catalytic activity/Vol] 15 U/L Normal 13-35 [facility] Comment on above: Order Comment: Speci men Type: BLOOD SPECIMENOrdering Facility: [facility] Address: [address] [place] [address] Performed By: #### 2 4323-8 ####[facility] LABCLIA [id number] [place] [address] [place] Bilirubin [Mass/Vol] 0.2 mg/dL Normal 0.2-1.3 [facility] Comment on above: Order Comment: Speci men Type: BLOOD SPECIMENOrdering Facility: [facility] Address: [address] [place] [address] Performed By: #### 2 4323-8 ####[facility] LABCLIA [id number] [facility] [place] [address] [place] Calcium [Mass/Vol] 9.2 mg/dL Normal 8.5-10.2 [facility] Comment on above: Order Comment: Speci men Type: BLOOD SPECIMENOrdering Facility: [facility] Address: [address] [place] [address] Performed By: #### 2 4323-8 ####[facility] LABCLIA [id number] [place] [address] [place] Chloride [Moles/Vol] 105 mmol/L Normal 98-107 [facility] Comment on above: Order Comment: Speci men Type: BLOOD SPECIMENOrdering Facility: [facility] Address: [address] [place] [address] Performed By: #### 2 4323-8 ####[facility] LABCLIA [id number] [place] [address] [place] CO2 [Moles/Vol] 26 mmol/L Normal 22-30 [facility] Comment on above: Order Comment: Speci men Type: BLOOD SPECIMENOrdering Facility: [facility] Address: [address] [place] [address] Performed By: #### 2 4323-8 ####[facility] LABCLIA [id number] [place] [address] [place] Creatinine [Mass/Vol] 0.86 mg/dL Normal 0.58-0.96 [facility] Comment on above: Order Comment: Speci men Type: BLOOD SPECIMENOrdering Facility: [facility] Address: [address] [place] [address] Performed By: #### 2 4323-8 ####[facility] LABCLIA [id number] [place] [address] [place] Creatinine and Glomerular filtration rate.predicted panel (S/P/Bld) 87 mL/min/1.73m??? Normal >=60 [facility] Comment on above: Order Comment: Luana davenport Type: BLOOD SPECIMENOrdering Facility: [facility] Address: [address] [place] [address] Result Comment: Cristal mated Glomerular Filtration Rate [...] actual GFR. Performed By: #### 2 4323-8 ####[facility] LABIA [id number] [place] [address] [place] Glucose [Mass/Vol] 100 mg/dL High 74-99 [facility] Comment on above: Order Comment: Luana davenport Type: BLOOD SPECIMENOrdering Facility: [facility] Address: [address] [place] [address] Result Comment: [employer] [place] Diabetes Association (ADA) provides guidance for cutoff [...] Standards of Medical Care in Diabetes 2016, [place] Diabetes Association. Diabetes Care. 2016.39(Suppl 1). Performed By: #### 2 4323-8 ####[facility] LABIA [id number] [place] [address] [place] Potassium [Moles/Vol] 3.8 mmol/L Normal 3.7-5.1 [facility] Comment on above: Order Comment: Luana davenport Type: BLOOD SPECIMENOrdering Facility: [facility] Address: [address] [place] [address] Performed By: #### 2 4323-8 ####[facility] LABCLIA [id number] [place] [address] [place] Protein [Mass/Vol] 6.3 g/dL Normal 6.3-8.0 [facility] Comment on above: Order Comment: Speci men Type: BLOOD SPECIMENOrdering Facility: [facility] Address: [address] [place] [address] Performed By: #### 2 4323-8 ####[facility] LABCLIA [id number] [place] [address] [place] Sodium [Moles/Vol] 142 mmol/L Normal 136-144 [facility] Comment on above: Order Comment: Speci men Type: BLOOD SPECIMENOrdering Facility: [facility] Address: [address] [place] [address] Performed By: #### 2 4323-8 ####[facility] LABCLIA [id number] [place] [address] [place] Urea nitrogen [Mass/Vol] 6 mg/dL Low 7-21 [facility] Comment on above: Order Comment: Speci men Type: BLOOD SPECIMENOrdering Facility: [facility] Address: [address] [place] [address] Performed By: #### 2 4323-8 ####[facility] LABCLIA [id number] [place] [address] [place] HCV Ab Ser Qlon 02-28-2024 HCV Ab Ql (S) Positive Abnormal Negative [facility] Comment on above: Order Comment: Speci men Type: BLOOD SPECIMENOrdering Facility: [facility] Address: [address] [place] [address] Performed By: #### 1 1011-4, 67421-2 ####[facility] LABCLIA [id number] [place] [address] [place] HCV RNA SerPl MARY KAY+probe-aCnc on 02-28-2024 HCV RNA MARY KAY+probe Qn Not detected Normal HCV RNA not detected by PCR. [facility] Comment on above: Order Comment: Speci men Type: BLOOD SPECIMENOrdering Facility: [facility] Address: [address] [place] [address] Performed By: #### 1 1011-4, 88612-2 ####[facility] LABIA [id number] [place] [address] [place] HIV 1+2 Ab IA Qlon 4 HIV 1 and 2 Ab IA.rapid Nom (S/P/Bld) Normal [facility] Comment on above: Order Comment: Speci men Type: BLOOD SPECIMENOrdering Facility: [facility] Address: [address] [place] [address] Result Comment: Test not indicated. Performed By: #### 3 1201-7 ####[facility] [id number] [place] [address] [place] HIV 1+2 Ab+HIV1 p24 Ag IA Ql Non-Reactive Normal Nonreactive [facility] Comment on above: Order Comment: Speci men Type: BLOOD SPECIMENOrdering Facility: [facility] Address: [address] [place] [address] Performed By: #### 3 1201-7 ####[facility] [id number] [place] [address] [place] HIV immunoassay testing algorithm interpretation (S/P/Bld) [Interp] Normal [facility] Comment on above: Order Comment: Speci men Type: BLOOD SPECIMENOrdering Facility: [facility] Address: [address] [place] [address] Result Comment: No e vidence of HIV-1 or HIV-2 infection. Should recent infection be suspected, repeat testing may be considered 2-3 weeks after this draw.[place] Rev. Code 3701.243(E): This information has been [...] or diagnoses. Performed By: #### 3 1201-7 ####[facility] LABCLIA [id number] [facility] [id number] [place], [place] [id number] [place] [facility] Abdomen/Pelvis W IV Cont ONL Yon 02-27-2024 Abdomen/Pelvis W IV Cont ONLY [facility] Imaging Services [address] [place] [address] [phone] Abdomen/Pelvis W IV Cont ONLY MR#: [id number] Acct: [id number] Name: PAT KNIGHT Rep #: [id number] : 1980 F 44 From: Katrin Nettles MD PCP: Dr. Maile Norman MD Status: REG ER Study: Abdomen/Pelvis W IV Cont ONLY Date of Exam: Exam# [id number] Ordering Dr: Cesar Meneses DO [id number] STUDY: CT ABDOMEN AND PELVIS WITH CONTRAST [...] 3:58 EDT Reading Location ID and State: [facility] / [place] , Service support , CC: Dr. Maile Norman MD; Cesar Meneses DO [employer]: Signed Normal [facility] Basic Metabolic Profile (BMP )on 02-27-2024 BUN/CRE 9.2 RATIO Low 10-20 [facility] Comment on above: Performed By: #### L 500.2500, L100.0100 ####[facility] [address] [place], [address] CA,Total 8.9 mg/dL Normal 8.5-10.1 [facility] Comment on above: Performed By: #### L 500.2500, L100.0100 ####[facility] [address] [place], [address] Chloride [Moles/Vol] 105 mmol/L Normal 98-107 [facility] Comment on above: Performed By: #### L 500.2500, L100.0100 ####[facility] [address] [place], [address] CO2 [Moles/Vol] 28.0 mmol/L Normal 21.0-32.0 [facility] Comment on above: Performed By: #### L 500.2500, L100.0100 ####[facility] [address] [place], [address] Creatinine [Mass/Vol] 0.76 mg/dL Normal 0.55-1.02 [facility] Comment on above: Result Comment: The validity of the calculated GFR GFRAA in patients over 70 years has not been determined. Clinical correlation is essential. Performed By: #### L 500.2500, L100.0100 ####[facility] [address] [place], [address] ECRCL 86.77 ml/min Normal [facility] Comment on above: Performed By: #### L 500.2500, L100.0100 ####[facility] [address] [place], [address] EST GFR - AA 107 mL/min Normal >60 [facility] Comment on above: Result Comment: Afri can German GFR Calc Performed By: #### L 500.2500, L100.0100 ####[facility] [address] [place], [address] GAP 6 Normal 5-15 [facility] Comment on above: Performed By: #### L 500.2500, L100.0100 ####[facility] [address] [place], [address] GFR/1.73 sq M.predicted among non-blacks MDRD (S/P/Bld) [Vol rate/Area] 88 mL/min/{1.73_m2} Normal >60 [facility] Comment on above: Result Comment: Non- GFR Calc Performed By: #### L 500.2500, L100.0100 ####[facility] [address] [place], [address] Glucose [Mass/Vol] 96 mg/dL Normal 74-106 [facility] Comment on above: Performed By: #### L 500.2500, L100.0100 ####[facility] [address] [place], [address] Potassium [Moles/Vol] 3.2 mmol/L Low 3.5-5.1 [facility] Comment on above: Performed By: #### L 500.2500, L100.0100 ####[facility] [address] [place], [address] Sodium [Moles/Vol] 139 mmol/L Normal 136-145 [facility] Comment on above: Performed By: #### L 500.2500, L100.0100 ####[facility] [address] [place], [address] Urea nitrogen [Mass/Vol] 7 mg/dL Normal 7-18 [facility] Comment on above: Performed By: #### L 500.2500, L100.0100 ####[facility] [address] [place], [address] CBC W/Diff, Automatedon 09-0 2-4 Absolute Lymph 4.87 X10 3/uL High 0.83-4.51 [facility] Comment on above: Performed By: #### L 500.2500, L100.0100 ####[facility] [address] [place], [address] Absolute Neut 7.7 X10 3/uL Normal 2.0-7.7 [facility] Comment on above: Performed By: #### L 500.2500, L100.0100 ####[facility] [address] [place], [address] Nucleated RBC (Bld) [#/Vol] 0 10*3/uL Normal 0-5 [facility] Comment on above: Performed By: #### L 500.2500, L100.0100 ####[facility] [address] [place], [address] Basophils/100 WBC (Bld) 0.9 % Normal 0-1 [facility] Comment on above: Performed By: #### L 500.2500, L100.0100 ####[facility] [address] [place], [address] Eosinophils/100 WBC (Bld) 1.4 % Normal 0-5 [facility] Comment on above: Performed By: #### L 500.2500, L100.0100 ####[facility] [address] [place], [address] Erythrocyte distribution width (RBC) [Ratio] 12.7 % Normal 11.6-14.6 [facility] Comment on above: Performed By: #### L 500.2500, L100.0100 ####[facility] [address] [place], [address] Hematocrit (Bld) [Volume fraction] 39.2 % Normal 37-47 [facility] Comment on above: Performed By: #### L 500.2500, L100.0100 ####[facility] [address] [place], [address] Hemoglobin (Bld) [Mass/Vol] 13.5 g/dL Normal 12.0-15.0 [facility] Comment on above: Performed By: #### L 500.2500, L100.0100 ####[facility] [address] [place], [address] IG% 0.300 Normal 0.0-0.9 [facility] Comment on above: Result Comment: IG% - Immature Granulocytes (promyelocytes, myelocytes and metamyelocytes) > 1% indicates that a LEFT SHIFT is Present. Performed By: #### L 500.2500, L100.0100 ####[facility] [address] [place], [address] Lymphocytes/100 WBC (Bld) 34.8 % Normal 19-41 [facility] Comment on above: Performed By: #### L 500.2500, L100.0100 ####[facility] [address] [place], [address] MCH (RBC) [Entitic mass] 32.8 pg High 27.0-32.0 [facility] Comment on above: Performed By: #### L 500.2500, L100.0100 ####[facility] [address] [place], [address] MCHC (RBC) [Mass/Vol] 34.4 g/dL Normal 32-36 [facility] Comment on above: Performed By: #### L 500.2500, L100.0100 ####[facility] [address] [place], [address] MCV (RBC) [Entitic vol] 95.4 fL Normal 81-99 [facility] Comment on above: Performed By: #### L 500.2500, L100.0100 ####[facility] [address] [place], [address] Monocytes/100 WBC (Bld) 7.8 % Normal 0-10 [facility] Comment on above: Performed By: #### L 500.2500, L100.0100 ####[facility] [address] [place], [address] Neutrophils/100 WBC (Bld) 54.8 % Normal 47-70 [facility] Comment on above: Performed By: #### L 500.2500, L100.0100 ####[facility] [address] [place], [address] Platelet mean volume (Bld) [Entitic vol] 10.4 fL Normal 6.2-12.0 [facility] Comment on above: Performed By: #### L 500.2500, L100.0100 ####[facility] [address] [place], [address] Platelets (Bld) [#/Vol] 317 10*3/uL Normal 150-450 [facility] Comment on above: Performed By: #### L 500.2500, L100.0100 ####[facility] [address] [place], [address] RBC (Bld) [#/Vol] 4.11 10*6/uL Low 4.2-5.4 [facility] Comment on above: Performed By: #### L 500.2500, L100.0100 ####[facility] [address] [place], [address] RDW SD 43.9 fl Normal 35.1-43.9 [facility] Comment on above: Performed By: #### L 500.2500, L100.0100 ####[facility] [address] [place], [address] WBC (Bld) [#/Vol] 14.0 10*3/uL High 4.4-11.0 [facility] Comment on above: Performed By: #### L 500.2500, L100.0100 ####[facility] [address] [place], [address] Emergency Department Summary on 02-27-2024 Emergency Department Summary [facility] Medical Records Department [address] [place] [address] Emergency Department Summary 02/27/24 MR#: [id number] Acct: [id number] Name: PAT KNIGHT Rep #: [id number] : 1980 44 From: Iain Reina DO [...] or guar (more content not included)... Normal [facility] Emergency Department Summary [facility] Medical Records Department [address] [place] [address] Emergency Department Summary 02/27/24 MR#: [id number] Acct: [id number] Name: PAT KNIGHT Rep #: [id number] : 1980 44 From: Cesar Meneses DO [...] and therefore she comes in for evaluation [facility] Medical History Right rotator cuff tear [...] Resp n (more content not included)... Normal [facility] ,Urineon 02-27-2024 Beta HCG ( test) Ql (U) Negative Normal [facility] Comment on above: Order Comment: CANDIDO CARMONA TO SPECIFY Result Comment: Very dilute urine specimens, as indicated by a low specific gravity, may not contain uniforms sales representative levels of hCG. If is still suspected, a first morning urine specimen should be collected 48 hours later and tested. Performed By: #### L 100.0100, L501.2450, L500.4050, L700.6800 #### [facility] Laboratory [address] [place], [address] Urinalysis, Completeon 02-26 BACTERIA 0 SEEN Normal None Seen [facility] Comment on above: Order Comment: CANDIDO CTOR TO SPECIFY Performed By: #### L 100.0100, L501.2450, L500.4050, L700.6800 #### [facility] [address] [place], [address] EPI,SQUAMOUS 0 SEEN Normal 5-10 [facility] Comment on above: Order Comment: CANDIDO CTOR TO SPECIFY Performed By: #### L 100.0100, L501.2450, L500.4050, L700.6800 #### [facility] [address] [place], [address] Mucus Ql (Urine sed) 0 SEEN Normal [facility] Comment on above: Order Comment: COLLE CTOR TO SPECIFY Performed By: #### L 100.0100, L501.2450, L500.4050, L700.6800 #### [facility] [address] [place], [address] RBC 0 SEEN Normal 0-5 [facility] Comment on above: Order Comment: COLLE CTOR TO SPECIFY Performed By: #### L 100.0100, L501.2450, L500.4050, L700.6800 #### [facility] [address] [place], [address] WBC 0 SEEN Normal 0-5 [facility] Comment on above: Order Comment: COLLE CTOR TO SPECIFY Performed By: #### L 100.0100, L501.2450, L500.4050, L700.6800 #### [facility] [address] [place], [address] CNOVon 02-16-2024 CNOV Normal [facility] CNPNon 02-13-2024 CNPN Normal [facility] CNOVon 02-07-2024 CNOV Office Visit (AGHWW1 ) PAT KNIGHT ([id number]) 1980 F Date Time Provider Department 02/07/24 3:15 [facility] During your visit today, we recorded the [...] AND Elbow Surgeon Department of Orthopaedic Surgery [facility] Merline Carson LPN 02/17/2024 10:26 AM [...] chronicity [M25.511] Order(s):MRI SHOULDER WO IVCON RIGHT [[id number]] Order #: [id number] FUTURE Large Joint Arthro/Inj: R shoulder joint [QCZ480] Order #: [id number] [] bupivacaine (PF) 0.25 % (2.5 mg/mL) [...] (more content not included)... Normal [facility] Large Joint Arthro/Inj: R sh oulder [...] the patient voiced understanding of these instructions. [facility] CNOVon 01-25-2024 CNOV Normal [facility] CNPNon 01-23-2024 CNPN Normal [facility] CNPNon 01-16-2024 CNPN Normal [facility] CNOVon 01-11-2024 CNOV Normal [facility] CNPTOUTREACHon 01-11-2024 CNPTOUTREACH Normal [facility] CNPNon 01-09-2024 CNPN Normal [facility] Abdomen/Pelvis W IV Cont ONL Yon 01-06-2024 Abdomen/Pelvis W IV Cont ONLY [facility] Imaging Services [address] [place], [place] [address] Abdomen/Pelvis W IV Cont ONLY MR#: [id number] Acct: [id number] Name: PAT KNIGHT Rep #: [id number] : 1980 F 43 From: Kofi Ventura MD PCP: Dr. Maile Norman MD Status: REG ER Study: Abdomen/Pelvis W IV Cont ONLY Date of Exam: Exam# [id number] Ordering Dr: Arturo Craig DO [id number] EXAM: CT ABDOMEN AND PELVIS WITH INTRAVENOUS [...] Arturo Craig DO; Dr. Maile Norman MD [employer]: Signed Normal [facility] CBC W/Diff, Automatedon 07- Absolute Lymph 3.85 X10 3/uL Normal 0.83-4.51 [facility] Comment on above: Performed By: #### L 700.6800, L100.0100, L501.2450, L500.4050 ####[facility] [address] [place], [address] Absolute Neut 8.8 X10 3/uL High 2.0-7.7 [facility] Comment on above: Performed By: #### L 700.6800, L100.0100, L501.2450, L500.4050 ####[facility] [address] [place], [address] Basophils/100 WBC (Bld) 0.5 % Normal 0-1 [facility] Comment on above: Performed By: #### L 700.6800, L100.0100, L501.2450, L500.4050 ####[facility] [address] [place], [address] Eosinophils/100 WBC (Bld) 1.2 % Normal 0-5 [facility] Comment on above: Performed By: #### L 700.6800, L100.0100, L501.2450, L500.4050 ####[facility] [address] [place], [address] Erythrocyte distribution width (RBC) [Ratio] 12.3 % Normal 11.6-14.6 [facility] Comment on above: Performed By: #### L 700.6800, L100.0100, L501.2450, L500.4050 ####[facility] [address] [place], [address] Hematocrit (Bld) [Volume fraction] 41.8 % Normal 37-47 [facility] Comment on above: Performed By: #### L 700.6800, L100.0100, L501.2450, L500.4050 ####[facility] [address] [place], [address] Hemoglobin (Bld) [Mass/Vol] 14.3 g/dL Normal 12.0-15.0 [facility] Comment on above: Performed By: #### L 700.6800, L100.0100, L501.2450, L500.4050 ####[facility] [address] [place], [address] IG% 0.300 Normal 0.0-0.9 [facility] Comment on above: Result Comment: IG% - Immature Granulocytes (promyelocytes, myelocytes and metamyelocytes) > 1% indicates that a LEFT SHIFT is Present. Performed By: #### L 700.6800, L100.0100, L501.2450, L500.4050 ####[facility] [address] [place], [address] Lymphocytes/100 WBC (Bld) 28.0 % Normal 19-41 [facility] Comment on above: Performed By: #### L 700.6800, L100.0100, L501.2450, L500.4050 ####[facility] [address] [place], [address] MCH (RBC) [Entitic mass] 31.7 pg Normal 27.0-32.0 [facility] Comment on above: Performed By: #### L 700.6800, L100.0100, L501.2450, L500.4050 ####[facility] [address] [place], [address] MCHC (RBC) [Mass/Vol] 34.2 g/dL Normal 32-36 [facility] Comment on above: Performed By: #### L 700.6800, L100.0100, L501.2450, L500.4050 ####[facility] [address] [place], [address] MCV (RBC) [Entitic vol] 92.7 fL Normal 81-99 [facility] Comment on above: Performed By: #### L 700.6800, L100.0100, L501.2450, L500.4050 ####[facility] [address] [place], [address] Monocytes/100 WBC (Bld) 6.0 % Normal 0-10 [facility] Comment on above: Performed By: #### L 700.6800, L100.0100, L501.2450, L500.4050 ####[facility] [address] [place], [address] Neutrophils/100 WBC (Bld) 64.0 % Normal 47-70 [facility] Comment on above: Performed By: #### L 700.6800, L100.0100, L501.2450, L500.4050 ####[facility] [address] [place], [address] Nucleated RBC (Bld) [#/Vol] 0 10*3/uL Normal 0-5 [facility] Comment on above: Performed By: #### L 700.6800, L100.0100, L501.2450, L500.4050 ####[facility] [address] [place], [address] Platelet mean volume (Bld) [Entitic vol] 9.5 fL Normal 6.2-12.0 [facility] Comment on above: Performed By: #### L 700.6800, L100.0100, L501.2450, L500.4050 ####[facility] [address] [place], [address] Platelets (Bld) [#/Vol] 333 10*3/uL Normal 150-450 [facility] Comment on above: Performed By: #### L 700.6800, L100.0100, L501.2450, L500.4050 ####[facility] [address] [place], [address] RBC (Bld) [#/Vol] 4.51 10*6/uL Normal 4.2-5.4 [facility] Comment on above: Performed By: #### L 700.6800, L100.0100, L501.2450, L500.4050 ####[facility] [address] [place], [address] RDW SD 42.0 fl Normal 35.1-43.9 [facility] Comment on above: Performed By: #### L 700.6800, L100.0100, L501.2450, L500.4050 ####[facility] [address] [place], [address] WBC (Bld) [#/Vol] 13.8 10*3/uL High 4.4-11.0 [facility] Comment on above: Performed By: #### L 700.6800, L100.0100, L501.2450, L500.4050 ####[facility] [address] [place], [address] Comprehensive Metabolic Prof ilon 01-06-2024 Albumin [Mass/Vol] 3.5 g/dL Normal 3.2-5.0 [facility] Comment on above: Performed By: #### L 700.6800, L100.0100, L501.2450, L500.4050 ####[facility] [address] [place], [address] Albumin/Globulin [Mass ratio] 1.1 {ratio} Normal 0.9-2.4 [facility] Comment on above: Performed By: #### L 700.6800, L100.0100, L501.2450, L500.4050 ####[facility] [address] [place], [address] ALK P 63 U/L Normal 45-117 [facility] Comment on above: Performed By: #### L 700.6800, L100.0100, L501.2450, L500.4050 ####[facility] [address] [place], [address] ALT [Catalytic activity/Vol] 12 U/L Low 13-56 [facility] Comment on above: Performed By: #### L 700.6800, L100.0100, L501.2450, L500.4050 ####[facility] [address] [place], [address] AST [Catalytic activity/Vol] 9 U/L Low 15-37 [facility] Comment on above: Performed By: #### L 700.6800, L100.0100, L501.2450, L500.4050 ####[facility] [address] [place], [address] Bilirubin [Mass/Vol] 0.40 mg/dL Normal 0.20-1.00 [facility] Comment on above: Result Comment: For patients on eltrombopag therapy, use of Dimension [employer] TBIL is not recommended. Performed By: #### L 700.6800, L100.0100, L501.2450, L500.4050 ####[facility] [address] [place], [address] BUN/CRE 8.4 RATIO Low 10-20 [facility] Comment on above: Performed By: #### L 700.6800, L100.0100, L501.2450, L500.4050 ####[facility] [address] [place], [address] CA,Total 8.9 mg/dL Normal 8.5-10.1 [facility] Comment on above: Performed By: #### L 700.6800, L100.0100, L501.2450, L500.4050 ####[facility] [address] [place], [address] Chloride [Moles/Vol] 107 mmol/L Normal 98-107 [facility] Comment on above: Performed By: #### L 700.6800, L100.0100, L501.2450, L500.4050 ####[facility] [address] [place], [address] CO2 [Moles/Vol] 26.0 mmol/L Normal 21.0-32.0 [facility] Comment on above: Performed By: #### L 700.6800, L100.0100, L501.2450, L500.4050 ####[facility] [address] [place], [address] Creatinine [Mass/Vol] 0.95 mg/dL Normal 0.55-1.02 [facility] Comment on above: Result Comment: The validity of the calculated GFR GFRAA in patients over 70 years has not been determined. Clinical correlation is essential. Performed By: #### L 700.6800, L100.0100, L501.2450, L500.4050 ####[facility] [address] [place], [address] ECRCL 68.47 ml/min Normal [facility] Comment on above: Performed By: #### L 700.6800, L100.0100, L501.2450, L500.4050 ####[facility] [address] [place], [address] EST GFR - AA 83 mL/min Normal >60 [facility] Comment on above: Result Comment: Afri can German GFR Calc Performed By: #### L 700.6800, L100.0100, L501.2450, L500.4050 ####[facility] [address] [place], [address] GAP 5 Normal 5-15 [facility] Comment on above: Performed By: #### L 700.6800, L100.0100, L501.2450, L500.4050 ####[facility] [address] [place], [address] GFR/1.73 sq M.predicted among non-blacks MDRD (S/P/Bld) [Vol rate/Area] 69 mL/min/{1.73_m2} Normal >60 [facility] Comment on above: Result Comment: Non- GFR Calc Performed By: #### L 700.6800, L100.0100, L501.2450, L500.4050 ####[facility] [address] [place], [address] Globulin (S) [Mass/Vol] 3.1 g/dL Normal 2.2-4.2 [facility] Comment on above: Performed By: #### L 700.6800, L100.0100, L501.2450, L500.4050 ####[facility] [address] [place], [address] Glucose [Mass/Vol] 80 mg/dL Normal 74-106 [facility] Comment on above: Performed By: #### L 700.6800, L100.0100, L501.2450, L500.4050 ####[facility] [address] [place], [address] Potassium [Moles/Vol] 3.6 mmol/L Normal 3.5-5.1 [facility] Comment on above: Performed By: #### L 700.6800, L100.0100, L501.2450, L500.4050 ####[facility] [address] [place], [address] Sodium [Moles/Vol] 138 mmol/L Normal 136-145 [facility] Comment on above: Performed By: #### L 700.6800, L100.0100, L501.2450, L500.4050 ####[facility] [address] [place], [address] T PROT 6.6 g/dL Normal 6.4-8.2 [facility] Comment on above: Performed By: #### L 700.6800, L100.0100, L501.2450, L500.4050 ####[facility] [address] [place], [address] Urea nitrogen [Mass/Vol] 8 mg/dL Normal 7-18 [facility] Comment on above: Performed By: #### L 700.6800, L100.0100, L501.2450, L500.4050 ####[facility] [address] [place], [address] Emergency Department Summary on 01-06-2024 Emergency Department Summary [facility] Medical Records Department [address] [place] [address] Emergency Department Summary 01/06/24 MR#: [id number] Acct: [id number] Name: PAT KNIGHT Rep #: [id number] : 1980 43 From: Arturo Craig DO [...] Patient states that she did go to [facility] last week but does not think she swallowed any water. She has not had any exotic food or travel. No recent antibiotic use. [facility] Medical History Right rotator cuff tear [...] pain. Different (more content not included)... Normal [facility] Lipaseon 01-06-2024 Lipase [Catalytic activity/Vol] 37 U/L Normal 13-75 [facility] Comment on above: Result Comment: Padma gee note: LIPASE revised reference range effective 22. New Lipase methodology. Expected to produce lower values than the previous assay method. NEW Reference Range: 13 - 75 U/L Performed By: #### L 700.6800, L100.0100, L501.2450, L500.4050 ####[facility] [address] [place], [place], [address] ,Serum,hCG Quali.on 01-06-2024 HCG, SERUM QUAL Normal [facility] Comment on above: Result Comment: Canc elled via OM: Ordered/Entered in error Performed By: #### L 700.6800, L100.0100, L501.2450, L500.4050 ####[facility] [address] [place], [address] INTERNAL QC OK? Normal [facility] Comment on above: Result Comment: Canc elled via OM: Ordered/Entered in error Performed By: #### L 700.6800, L100.0100, L501.2450, L500.4050 ####[facility] [address] [place], [address] RECORD KIT LOT# Normal [facility] Comment on above: Result Comment: Canc elled via OM: Ordered/Entered in error Performed By: #### L 700.6800, L100.0100, L501.2450, L500.4050 ####[facility] [address] [place], [address] Urinalysis, Completeon 01-05 BACTERIA 1+ /hpf Normal None Seen [facility] Comment on above: Order Comment: CANDIDO CRESPOOR TO SPECIFY Performed By: #### L 400.0001 ####[facility] [address] [place], [address] EPI,SQUAMOUS 5-10 SEEN Normal 5-10 [facility] Comment on above: Order Comment: CANDIDO CRESPOOR TO SPECIFY Performed By: #### L 400.0001 ####[facility] [address] [place], [address] WBC 0-5 SEEN Normal 0-5 [facility] Comment on above: Order Comment: CANDIDO CRESPOOR TO SPECIFY Performed By: #### L 400.0001 ####[facility] [address] [place], [address] Mucus Ql (Urine sed) 0 SEEN Normal [facility] Comment on above: Order Comment: CANDIDO CTOR TO SPECIFY Performed By: #### L 400.0001 ####[facility] [address] [place], [address] RBC 0 SEEN Normal 0-5 [facility] Comment on above: Order Comment: COLLE CTOR TO SPECIFY Performed By: #### L 400.0001 ####[facility] [address] [place], [address] CNPNon 01-02-2024 CNPN Normal [facility] Emergency Department Summary on 01-01-2024 Emergency Department Summary [facility] Medical Records Department [address] [place] [address] Emergency Department Summary 01/01/24 MR#: [id number] Acct: [id number] Name: PAT KNIGHT Rep #: [id number] : 1980 43 From: Pablo Jarquin MD PCP: Dr. Maile Norman MD Status:REG ER Location: ED HPI History of Present Illness HPI Narrative: 43-year-old female wyifr-zqvt-djopsxav with right rotator cuff surgery 3 months [...] can flex and extend her elbow. Normal laboratory clerk strength. Normal radial pulse. Normal touch sensation. [...] for cachect (more content not included)... Normal [facility] CNPNon 12-27-2023 CNPN Normal [facility] CNOVon 12-20-2023 CNOV Normal [facility] CNPNon 12-07-2023 CNPN Normal [facility] CNOVon 10-11-2023 CNOV Office Visit (AGHWW1 ) PAT KNIGHT ([id number]) 1980 F Date Time Provider Department 10/11/23 [...] AND Elbow Surgeon Department of Orthopaedic Surgery [facility] Medical Decision Making: Medical Decision Making Level: [...] (more content not included)... Normal [facility] LABORATORYOrdered By: SYSTEM SYSTEM on 10-10-2023 Lipase [Catalytic activity/Vol] 36 U/L Normal 16 - 77 U/L AO ADM SS LIPon 10-10-2023 Lipase Level 36 U/L Normal 16-77 [facility] ([place]) Comment on above: Performed By: #### L IP #### [address] [address] .Auto Diffon 09-26-2023 Basophil, Absolute 0.2 10 3/mcL Normal 0.0-0.2 [facility] ([place]) Comment on above: Performed By: #### A [place]ONA [place]ORD, CBC, CHANCE #### [address] [address] Basophils/100 WBC (Bld) 1.4 % Normal 0.0-2.5 [facility] ([place]) Comment on above: Performed By: #### A [place], CBC, W #### [address] [address] Eosinophil, Absolute 0.0 10 3/mcL Normal 0.0-0.4 [facility] ([place]) Comment on above: Performed By: #### A [place]ORD, CBC, W #### [address] [address] Eosinophils/100 WBC (Bld) 0.2 % Normal 0.0-7.0 [facility] ([place]) Comment on above: Performed By: #### A [place] CBC, MDW #### [address] [address] Lymphocyte, Absolute 2.6 10 3/mcL Normal 0.8-3.9 [facility] ([place]) Comment on above: Performed By: #### A [place] CBC, MDW #### [address] [address] Lymphocytes/100 WBC (Bld) 20.9 % Normal 10.0-50.0 [facility] ([place]) Comment on above: Performed By: #### A [place] CBC, MDW #### [address] [address] Monocyte, Absolute 0.7 10 3/mcL Normal 0.2-1.0 [facility] ([place]) Comment on above: Performed By: #### A [place] CBC, MDW #### [address] [address] Monocytes/100 WBC (Bld) 5.3 % Normal 1.7-13.0 [facility] ([place]) Comment on above: Performed By: #### A [place] CBC, MDW #### [address] [address] Neutrophils/100 WBC (Bld) 72.2 % Normal 37.0-80.0 [facility] ([place]) Comment on above: Performed By: #### A [place] CBC, MDW #### [address] [address] .MDWon 09-26-2023 Monocyte Distribution Width 19.23 Normal 0.00-20.00 [facility] ([place]) Comment on above: Result Comment: For ED adult patients suspected of sepsis, MDW<=20.0 does not rule out sepsis or risk of sepsis Performed By: #### A [place]ONA [place] CBC, MDW #### [address] [address] .NEUABSon 09-26-2023 Neutrophil, Absolute 9.0 10 3/mcL High 2.9-6.2 [facility] ([place]) Comment on above: Performed By: #### A [place] CBC, MDW #### [address] [address] CBCon 09-26-2023 Erythrocyte distribution width (RBC) [Ratio] 14.3 % Normal 11.5-14.5 [facility] ([place]) Comment on above: Performed By: #### A [place]ONA SANFORD CBC, MDW #### [place] [address] Hematocrit (Bld) [Volume fraction] 43.0 % Normal 37.0-47.0 [facility] ([place]) Comment on above: Performed By: #### A [place] CBC, MDW #### [place] [address] Hgb 15.1 G/dL Normal 12.0-16.0 [facility] ([place]) Comment on above: Performed By: #### A [place] CBC, MDW #### [place] [address] MCH (RBC) [Entitic mass] 32.6 pg High 27.0-31.2 [facility] ([place]) Comment on above: Performed By: #### A [place] CBC, MDW #### [place] [address] MCHC 35.2 G/dL Normal 33.0-37.0 [facility] ([place]) Comment on above: Performed By: #### A [place] CBC, MDW #### [place] [address] MCV (RBC) [Entitic vol] 92.6 fL Normal 80.0-94.0 [facility] ([place]) Comment on above: Performed By: #### A [place] CBC, MDW #### [address] [address] Platelet 365 10 3/mcL Normal 130-400 [facility] ([place]) Comment on above: Performed By: #### A [place] CBC, MDW #### [address] [address] Platelet mean volume (Bld) [Entitic vol] 7.6 fL Normal 7.4-10.4 [facility] ([place]) Comment on above: Performed By: #### A [place]ONA [place] CBC, MDW #### [address] [address] RBC 4.64 10 6/mcL Normal 4.20-5.40 [facility] ([place]) Comment on above: Performed By: #### A [place] CBC, MDW #### [address] [address] WBC 12.4 10 3/mcL High 4.6-10.8 [facility] ([place]) Comment on above: Performed By: #### A [place]ONA [place] CBC, MDW #### [address] [address] LABORATORYOrdered By: SYSTEM SYSTEM on 09-26-2023 Basophil, [...] 9:41:45 PM Ordering Provider: TU DE ANDA [facility] ([place]) CNOV 09-13-2023 [facility] Office Visit (AGHWW1 ) PAT KNIGHT ([id number]) 1980 F Date Time Provider Department 09/13/23 [...] AND Elbow Surgeon Department of Orthopaedic Surgery [facility] Medical Decision Making: Medical Decision Making Level: [...] Encounter Status:Closed by LOUIS VALENCIA on 09/13/23 [facility] ANES POSTPROC EVALon 024 ANES POSTPROC EVAL HNO ID: [id number] Author: MADAI JORGE MD Service: Anesthesiology Author Type: Physician Type: Anesthesia Postprocedure Evaluation Filed: 08/29/2023 16:02 Note Text: POST ANESTHESIA EVALUATION NOTE : 1980 Procedure Summary Date: 08/29/23 Room / Location: [facility] Anesthesia Start: 1303 Anesthesia Stop: 1416 Procedure: [...] August 29, 2023 TIME: 4:02 PM CSN: [id number] [facility] ANES PRE-OPon 08-29-2023 ANES PRE-OP HNO ID: [id number] Author: OTF MCCLENDON MD Service: Anesthesiology Author Type: Physician Type: Anesthesia Preprocedure Evaluation Filed: 08/29/2023 12:02 Note Text: ANESTHESIOLOGY DAY OF SURGERY NOTE : 1980 Procedure Information Date/Time: 08/29/23 1205 Procedure: ARTHROSCOPY SHOULDER BICEPS TENODESIS (Right: Shoulder) - REG - INTERSCALENE BLOCK Location: [place] [facility] / [place] [facility] Surgeons: Louis [...] and consent discussed: yes. Patient / Responsible Alliance Party agrees to proceed: yes Patient / [...] August 29, 2023 TIME: 11:31 AM CSN: [id number] Normal [facility] HCG Preg Ur Qlon 08-29-2023 HCG ( test) Ql (U) Negative Normal Negative [facility] Comment on above: Order Comment: Speci men Type: URINE SPECIMENOrdering Facility: [facility] Address: [address] [place] [address] Result Comment: This test is intended to aid in the early detection of . Very dilute urine samples, as indicated by a low specific gravity, may not contain uniforms sales representative levels of hCG. This test [...] for . Performed By: #### 2 106-3 ####[facility] LABCLIA [id number] [place] [address] [place] HISTORY PHYSICALon HISTORY PHYSICAL HNO ID: [id number] Author: LOUIS VALENCIA MD Service: Orthopaedic Surgery [...] DATE: August 29, 2023 TIME: 11:52 AM [facility] OPERATIVE NOon 08-29-2023 OPERATIVE NO HNO ID: [id number] Author: LOUIS VALENCIA MD Service: Orthopaedic Surgery Author Type: Physician Type: Operative Report Filed: 09/07/2023 11:31 Note Text: OPERATIVE/PROCEDURE REPORT LOG ID: [id number] SURGERY/PROCEDURE DATE: 08/29/2023 INCISION/PROCEDURE START TIME: 1:29 PM INCISION CLOSE/PROCEDURE END TIME: 2:03 PM SURGEON(S)/PROCEDURAL IST(S) AND PHOTOGRAPHY COLORIST(S): Surgeon(s) and Role: * Louis Valencia MD - Primary Physician Manager Photography: Laura Tobar PA-C SURGERY/PROCEDURE(S): Right shoulder arthroscopic [...] repair. I grasped the tendon using a [employer] suture passer and passed 2 limbs of suture from inferior to superior, medial to the tendon edge. Single row repair was completed using 1 anchor. Solid fixation was confirmed under direct visualization and by use of a probe. There was no (more content not included)... Normal [facility] ([id number]) 1980 F Date Time Provider Department 08/26/23 LOUIS VALENCIA [facility] During your visit today, we recorded the following information about you: Doyle Jakin Daniel Alis 08/26/2023 4:13 PM Signed I [...] Date Reviewed: 08/18/2023 Reviewed by: Radha Neri APRN.EVP [employer] EXPERIENCE STRATEGY - Fully Assessed Reason for Visit: Preparations [...] (HCC) [I50.9] 08/18/2023 Encounter Status:Closed by DOYLE CARBONATION TESTER ALIS ESPINOSA on 08/26/23 [facility] HISTORY PHYSICALon HISTORY PHYSICAL HNO ID: [id number] Author: RADHA NERI APRN.EVP [employer]ATE[employer] Service: ? Author Type: Nurse Practitioner Type: [...] Initiated: No labs ordered per surgeon in [facility] I spent a total of 40 minutes on the date of the service which included preparing to see the patient, badk-qt-blra patient care, completing clinical documentation, obtaining and/or [...] (more content not included)... Normal [facility] STREP A MOLECULAR (POC)on Procedural Control Valid [facility] Strep A (POCT) Negative Negative [facility] XR Chest PA and Lateralon IMPRESSION: No acute radiographic abnormality. [employer]: DARSHAN Transcribe Date/Time: Aug 11 2023 8:47A Dictated by : LIZBETH GONZALEZ DO This examination was interpreted and the report reviewed and electronically signed by: LIZBETH GONZALEZ DO on Aug 11 2023 8:50AM [facility] DIVISION OF RADIOLOGY * * *Final Report* [...] Unremarkable. IMPRESSION IMPRESSION: No acute radiographic abnormality. [employer]: PSCB Transcribe Date/Time: Aug 11 2023 8:47A Dictated by : LIZBETH GONZALEZ DO This examination was interpreted and the report reviewed and electronically signed by: LIZBETH GONZALEZ DO on Aug 11 2023 8:50AM EST [facility] Radiology Study observation (narrative) [facility] XR Chest PA and LateralOrder ed By: Ccf Provider on 08-11-[address] [facility] CNOVon 08-09-2023 CNOV Office Visit (AGHWW1 ) PAT KNIGHT ([id number]) 1980 F Date Time Provider Department 08/09/23 [...] negative Drop arm test: negative Biceps/joss Signs [place] test: positive Clicking/popping: positive Speed's test: positive [...] Surgeon Department of Orthopaedic Surgery [facility] (more content not included)... Normal [facility] INFLUENZA A&B MOLECULAR (POC )on 08-01-2023 Flu A (POCT) Negative Negative [facility] Flu B (POCT) Negative Negative [facility] Procedural Control Valid [facility] CNOVon 05-12-2023 CNOV Office Visit (SPAGWO ) ADAMPAT ([id number]) 1980 F Date Time Provider Department 05/12/23 9:00 AM CHARLES ELLIOTT During your visit today, we recorded the following information about you: Pulse Respiration 68/minute 16/minute Charles Elliott APRN.CNP 05/12/2023 2:29 PM Signed [facility] Today's Date: 05/12/2023 Last Visit: N/A [...] and validated on 05/12/2023 by Charles Elliott APRN.EV[employer]PER[employer]ATE[employer] All prescriptions have been APPROPRIATELY filled. No suspicious activity was identified. Recent Drug screens: AG SPINE COMBINATION 05/12/2023 Questionnaire GREENLIGHT Completed Date 05/12/2023 Questionnaire Opiod Risk Tool Completed Date 05/12/2023 Comments 4 Greenlight Questionnaire GREENLIGHT Completed Date 05/12/2023 Opioid Risk Tool Opi (more content not included)... Normal [facility] CNPShelly 05-12-2023 CHRISTINA Telephone (SPAGWO) PAT KNIGHT ([id number]) 1980 F Date Time Provider Department 05/12/23 CHARLES ELLIOTT During your visit today, we recorded the following information about you: Kimberly Crowe 05/12/2023 10:14 AM Signed The referral to Orthopaedics for Chronic right shoulder pain, Labral tear of shoulder, degenerative, right has been submitted via the [facility] Internal Referral Request form on the [facility] Appointment Portal. Confirmation # [id number] Kimberly Crowe Allergies As of Date: 05/12/2023 [...] Date Reviewed: 05/12/2023 Reviewed by: Charles Elliott APRN.EV[employer]PER[employer]ENCE [employer]ATEGY - Fully Assessed Reason for Visit: Referral Information [[id number]] Prescriptions as of 05/12/2023 - oxyCODONE-acetaminoph en [...] KIMBERLY CROWE on 05/12/23 Normal [facility] UA DIP, URINE (POC)on 2022 BILIRUBIN UA (POCT) Negative Negative [facility] CLARITY UA (POCT) Clear [facility] COLOR UA (POCT) Yellow [facility] GLUCOSE UA (POCT) Negative Negative mg/dL [facility] Hemoglobin Ql (U) Negative Negative [facility] KETONE UA (POCT) Negative Negative mg/dL [facility] LEUKOCYTES UA (POCT) Negative Negative [facility] NITRITE UA (POCT) Negative Negative [facility] PH UA (POCT) 6.0 4.5 - 8.[address] [facility] Protein Ql (U) 30 mg/dL Abnormal Negative mg/dL [facility] SPECIFIC GRAVITY UA (POCT) <=1.005 Abnormal 1.005 - 1.[address] [facility] UROBILINOGEN UA (POCT) 0.2 E.U./dL Normal E.U./dL [facility] UA DIP, URINE (POC)on 2022 BILIRUBIN UA (POCT) Negative Negative [facility] CLARITY UA (POCT) Clear [facility] [facility] COLOR UA (POCT) Yellow [facility] GLUCOSE UA (POCT) Negative Negative mg/dL [facility] Hemoglobin Ql (U) Trace-intact Abnormal Negative [facility] KETONE UA (POCT) Negative Negative mg/dL [facility] LEUKOCYTES UA (POCT) Large Abnormal Negative [facility] NITRITE UA (POCT) Negative Negative [facility] PH UA (POCT) 6.5 4.5 - 8.[address] [facility] Protein Ql (U) Negative Negative mg/dL [facility] SPECIFIC GRAVITY UA (POCT) 1.025 1.005 - 1.[address] [facility] UROBILINOGEN UA (POCT) 0.2 E.U./dL Normal E.U./dL [facility] XR Chest PA and Lateralon IMPRESSION: No acute radiographic abnormality. [employer]: DARSHAN Transcribe Date/Time: Mar 30 2023 8:48A [...] Unremarkable. IMPRESSION IMPRESSION: No acute radiographic abnormality. [employer]: DARSHAN Transcribe Date/Time: Mar 30 2023 8:48A Dictated by : OTTONIEL OSHEA MD This examination was interpreted and the report reviewed and electronically signed by: OTTONIEL OSHEA MD on Mar 30 2023 8:49AM EST [facility] Radiology Study observation (narrative) [facility] XR Chest PA and LateralOrder ed By: Ccf Provider on 03-30-[address] [facility] Afshin 03-23-2023 LUIS DANIELN Telephone ([id number]) PAT KNIGHT ([id number]) 1980 F Date Time Provider Department 03/23/23 [...] Date Reviewed: 02/08/2023 Reviewed by: Sam Khan APRN.[employer] EXPERIENCE STRATEGY - Fully Assessed Reason for Visit: Appointment [...] DAI GUTIERREZ on 03/23/23 Normal [facility] XR SHOULDER MINIMUM 2 VIEWS RIGHTon [...] 03/15/2023 10:58:13 AM Ordering Provider: LAVONNE Solo [facility] ([place]) MRI SHOULDER WO/W EDWIN Jose 03-11-[address] [facility] XR Sacrum and Coccyx 3 Views on 12-03-2022 IMPRESSION: NO ACUTE OSSEOUS ABNORMALITY [employer]: DARSHAN Transcribe Date/Time: Dec 03 2022 5:09P Dictated by : TYESHA MARX MD This examination was interpreted and the report reviewed and electronically signed by: TYESHA MARX MD on Dec 03 2022 5:09PM [facility] DIVISION OF RADIOLOGY * * *Final Report* [...] significant abnormality. --- DIVISION OF RADIOLOGY Provider, [facility] * * *Final Report* [...] --- IMPRESSION IMPRESSION: NO ACUTE OSSEOUS ABNORMALITY [employer]: [facility] Transcribe Date/Time: Dec 03 2022 5:09P Dictated by : TYESHA MARX MD This examination was interpreted and the report reviewed and electronically signed by: TYESHA MARX MD on Dec 03 2022 5:09PM EST [facility] XR Sacrum and Coccyx 3 Views Ordered By: Ccf Provider on 12-03-[address] [facility] XR Sacrum and Coccyx 3 Views on 12-01-2022 Radiology Study observation (narrative) [facility] STREP A MOLECULAR (POC)on Procedural Control Valid [facility] Strep A (POCT) Negative Negative [facility] XR DIGIT GENERAL 3V FRONTAL/ LAT/OBL RIGHTon 03-16-[address] [facility] XR Finger - right AP and Lat eral and obliqueon 03-16-2022 IMPRESSION: Soft tissue swelling. There is no radiopaque foreign body. [employer]: [facility] Transcribe Date/Time: Mar 16 2022 12:22P Dictated by : NATY GRAFF MD This examination was interpreted and the report reviewed and electronically signed by: NATY GRAFF MD on Mar 16 2022 12:25PM [facility] DIVISION OF RADIOLOGY * * *Final Report* [...] relevant examinations available for comparison within the [facility] Imaging Archives. RESULT: AP, oblique and [...] relevant examinations available for comparison within the [facility] Imaging Archives. RESULT: AP, oblique and lateral radiographs of the right fourth finger demonstrate focal soft tissue prominence/swelling along the antiradial the lower margin of the distal phalanx. There is no radiopaque foreign body. No underlying fracture. IMPRESSION IMPRESSION: Soft tissue swelling. There is no radiopaque foreign body. [employer]: [employer] Transcribe Date/Time: Mar 16 2022 12:22P Dictated by : NATY GRAFF MD This examination was interpreted and the report reviewed and electronically signed by: NATY GRAFF MD on Mar 16 2022 12:25PM EST [facility] Radiology Study observation (narrative) [facility] XR Finger - right AP and Lat eral and obliqueOrdered By: Ccf Provider on 03-16-[address] [facility] Basic Metabolic Panelon -2 Anion gap [Moles/Vol] 0 mmol/L Low 3-13 [facility] Comment on above: Performed By: #### H EMDF, BMP3, QWAL2 #### [facility] [address] [place] [address] Calcium [Mass/Vol] 9.4 mg/dL Normal 8.4-10.4 [facility] Comment on above: Performed By: #### H EMDF, BMP3, QWAL2 #### [facility] [address] [place] [address] CO2 [Moles/Vol] 30 mmol/L Normal 22-30 [facility] Comment on above: Performed By: #### H OSBALDO GARCIA, QWAL2 #### [facility] [address] [place] [address] Creatinine [Mass/Vol] 0.70 mg/dL Normal 0.52-1.25 [facility] Comment on above: Performed By: #### H MIRA GARCIA3, QWAL2 #### [facility] [address] [place] [address] eGFR OTHER > 90.0 Normal >60 [facility] Comment on above: Result Comment: KDIG [...] By: #### H OSBALDO GARCIA, QWAL2 #### [facility] [address] [place] [address] GFR/1.73 sq M.predicted among blacks MDRD (S/P/Bld) [Vol rate/Area] mL/min/{1.73_m2} Normal >60 [facility] Comment on above: Performed By: #### H MIRA GARCIA3, QWAL2 #### [facility] [address] [place] [address] Glucose [Mass/Vol] 86 mg/dL Normal 70-100 [facility] Comment on above: Performed By: #### H OSBALDO GARCIA, QWAL2 #### [facility] [address] [place] [address] Urea nitrogen [Mass/Vol] 2 mg/dL Low 9-20 [facility] Comment on above: Performed By: #### H EMDF, BMP3, QWAL2 #### [facility] [address] [place] [address] Chloride [Moles/Vol] 109 mmol/L High 98-107 [facility] Comment on above: Performed By: #### H EMDF, BMP3, QWAL2 #### [facility] [address] [place] [address] Potassium [Moles/Vol] 3.2 mmol/L Low 3.5-5.1 [facility] Comment on above: Performed By: #### H EMDF, BMP3, QWAL2 #### [facility] [address] [place] [address] Sodium [Moles/Vol] 139 mmol/L Normal 135-145 [facility] Comment on above: Performed By: #### H EMDF, BMP3, QWAL2 #### [facility] [address] [place] [address] Anion gap [Moles/Vol] 0 mmol/L Low 3 - 13 mmol/L [facility] Calcium [Mass/Vol] 9.4 mg/dL 8.4 - 10. 4 mg/dL [facility] Chloride [Moles/Vol] 109 mmol/L High 98 - 107 mmol/L [facility] CO2 [Moles/Vol] 30 mmol/L 22 - 30 mmol/L [facility] Creatinine [Mass/Vol] 0.7 mg/dL 0.52 - 1.25 mg/dL [facility] EGFR IF NonAfrican German >90.0 >60 mL/min [facility] Comment on above: KDIGO guidelines pro [...] - 10.7 10*3/uL [facility] Test Performed by [facility], [address] [place] [address]. [address] LAB [facility] CT HEAD WO CONTRASTon 2021 Patient Name: PAT KNIGHT Computed Tomography ACCESSION EXAM DATE/TIME PROCEDURE ORDERING PROVIDER [id number] 07/18/2021 18:[address] Head or Brain w/o MD MARIAELENA, ALISSON Sanz Contrast CPT code 60954 Reason For Exam (CT Head or Brain [...] MALAY Transcribed Date and Time: 07/18/2021 6:59 [facility] RAD Thai Samson MD - 07/18/2021 Patient Name: PAT KNIGHT Computed Tomography ACCESSION EXAM DATE/TIME PROCEDURE ORDERING PROVIDER [id number] 07/18/2021 18:[address] Head or Brain w/o MD FERRELL DOUGALAS R. Contrast CPT code 35138 Reason For Exam (CT Head or Brain [...] MALAY Transcribed Date and Time: 07/18/2021 6:59 [facility] Work [facility]: CT HEAD WO CONTRASTOrdered B y: Thai Samson on 07-18-2021 [facility] Work Phone: CT Head or Brain w/o Contras ton 07-18-2021 CT Head or Brain w/o Contrast Patient Name: PAT KNIGHT Computed Tomography ACCESSION EXAM DATE/TIME PROCEDURE ORDERING PROVIDER [id number] 07/18/2021 18:[address] Head or Brain w/o MD FERRELL DOUGALAS R. Contrast CPT code 89495 Reason For Exam (CT Head or Brain [...] MALAY Transcribed Date and Time: 07/18/2021 6:[address] [facility] [address] MAXILLOFACIAL W CONTRASTo n 07-18-2021 Patient Name: PAT KNIGHT Computed Tomography ACCESSION EXAM DATE/TIME PROCEDURE ORDERING PROVIDER [id number] 07/18/2021 19:[address] Maxillofacial w/ MD MARIAELENA, ALISSON Rodríguez. Contrast CPT code 69600 Q9967 Reason For Exam (CT Maxillofacial w/ [...] MALAY Transcribed Date and Time: 07/18/2021 7:14 [facility] Thai Samson MD - 07/18/2021 Patient Name: PAT KNIGHT Computed Tomography ACCESSION EXAM DATE/TIME PROCEDURE ORDERING PROVIDER [id number] 07/18/2021 19:[address] Maxillofacial w/ MD MARIAELENA, PRIETOS R. Contrast CPT code 06050 Q9967 Reason For Exam (CT Maxillofacial w/ [...] Maxillofacial w/ Contrast [facility]: [id number] Tomography ACCESSION EXAM DATE/TIME PROCEDURE ORDERING PROVIDER [id number] 07/18/2021 19:[address] Maxillofacial w/ MD MARIAELENA, PRIETOS R. Contrast CPT code 95892 Q9967 Reason For Exam (CT Maxillofacial w/ [...] Transcribed Date and Time: 07/18/2021 7:14 Normal [facility] HCG Qualitative, Serumon hCG Qual Negative [facility] Comment on above: Reference Range: NEG ATIVE Effective 09/07/2019, the reference interval for the qualitative test has been updated. This test detects hCG at concentrations of 10 mIU/L or greater in serum. Hemogram w/ Autodiffon 07-18 Abs Baso Cnt 0.1 10*3/uL Normal 0.0-0.2 [facility] Comment on above: Performed By: #### H EMDF, BMP3, QWAL2 #### [facility] [address] [place] [address] Abs Neutrophile Cnt 5.0 10*3/uL Normal 1.8-7.0 [facility] Comment on above: Performed By: #### H EMDF, BMP3, QWAL2 #### [facility] [address] [place] [address] Basophils/100 WBC (Bld) 1.3 % Normal 0.0-2.0 [facility] Comment on above: Performed By: #### H EMDF, BMP3, QWAL2 #### [facility] [address] [place] [address] Eosinophils (Bld) [#/Vol] 0.1 10*3/uL Normal 0.0-0.5 [facility] Comment on above: Performed By: #### H EMDF, BMP3, QWAL2 #### [facility] [address] [place] [address] Eosinophils/100 WBC (Bld) 1.2 % Normal 1.0-6.0 [facility] Comment on above: Performed By: #### H EMDF, BMP3, QWAL2 #### [facility] [address] [facility] [place] [address] Erythrocyte distribution width (RBC) [Ratio] 13.2 % Normal 11.5-14.5 [facility] Comment on above: Performed By: #### H EMDF, BMP3, QWAL2 #### [facility] [address] [place] [address] Granulocytes/100 WBC (Bld) 54.7 % Normal 40.0-80.0 [facility] Comment on above: Performed By: #### H EMDF, BMP3, QWAL2 #### [facility] [address] [place] [address] Hematocrit (Bld) [Volume fraction] 37.5 % Normal 35.0-47.0 [facility] Comment on above: Performed By: #### H EMDF, BMP3, QWAL2 #### [facility] [address] [place] [address] Hemoglobin (Bld) [Mass/Vol] 13.1 g/dL Normal 11.7-16.0 [facility] Comment on above: Performed By: #### H EMDF, BMP3, QWAL2 #### [facility] [address] [place] [address] Lymphocytes (Bld) [#/Vol] 3.4 10*3/uL Normal 1.0-4.3 [facility] Comment on above: Performed By: #### H EMDF, BMP3, QWAL2 #### [facility] [address] [place] [address] Lymphocytes/100 WBC (Bld) 36.9 % Normal 20.0-40.0 [facility] Comment on above: Performed By: #### H EMDF, BMP3, QWAL2 #### [facility] [address] [place] [address] MCH (RBC) [Entitic mass] 31.8 pg Normal 26.0-34.0 [facility] Comment on above: Performed By: #### H EMDF, BMP3, QWAL2 #### [facility] [address] [place] [address] MCHC 35.0 % Normal 32.0-36.0 [facility] Comment on above: Performed By: #### H EMDF, BMP3, QWAL2 #### [facility] [address] [place] [address] MCV (RBC) [Entitic vol] 90.7 fL Normal 79.0-98.0 [facility] Comment on above: Performed By: #### H EMDF, BMP3, QWAL2 #### [facility] [address] [place] [address] Monocytes (Bld) [#/Vol] 0.5 10*3/uL Normal 0.0-0.8 [facility] Comment on above: Performed By: #### H EMDF, BMP3, QWAL2 #### [facility] [address] [place] [address] Monocytes/100 WBC (Bld) 5.9 % Normal 2.0-10.0 [facility] Comment on above: Performed By: #### H EMDF, BMP3, QWAL2 #### [facility] [address] [place] [address] Platelet mean volume (Bld) [Entitic vol] 7.6 fL Normal 7.4-10.4 [facility] Comment on above: Performed By: #### H EMDF, BMP3, QWAL2 #### [facility] [address] [place] [address] Platelets (Bld) [#/Vol] 365 10*3/uL Normal 140-440 [facility] Comment on above: Performed By: #### H EMDF, BMP3, QWAL2 #### [facility] [address] [place] [address] RBC (Bld) [#/Vol] 4.13 10*6/uL Normal 3.80-5.20 [facility] Comment on above: Performed By: #### H EMDF, BMP3, QWAL2 #### [facility] [address] [place] [address] WBC (Bld) [#/Vol] 9.2 10*3/uL Normal 3.6-10.7 [facility] Comment on above: Performed By: #### H EMDF, BMP3, QWAL2 #### [facility] [address] [place] [address] No Panel Informationon 07-18 Test Performed by [facility] [employer] [facility], [address] , [place], [place] [address] [facility] Radiology Study observation (narrative) [facility] Work Phone: hCG Qual Pregon 07-18-2021 hCG Qual Preg Negative Normal [facility] [employer] [facility] Comment on above: Result Comment: Refe rence Range: NEGATIVE Effective 09/07/2019, the reference interval for the qualitative test has been updated. This test detects hCG at concentrations of 10 mIU/L or greater in serum. Performed By: #### H EMDF, BMP3, QWAL2 #### [facility] [employer] [address] [place] [address] XR Chest PA and Lateralon IMPRESSION: No acute radiographic abnormality. [employer]: DARSHAN Transcribe Date/Time: Mar 09 2021 10:00A Dictated by : ALEX MUNIZ MD This examination was interpreted and the report reviewed and electronically signed by: ALEX MUNIZ MD on Mar 09 2021 10:01AM [facility] DIVISION OF RADIOLOGY * * *Final Report* [...] soft tissues: Unremarkable. DIVISION OF RADIOLOGY Provider, [facility] Laura Garcia - 03/09/2021 * * *Final [...] Unremarkable. IMPRESSION IMPRESSION: No acute radiographic abnormality. [employer]: [employer] Transcribe Date/Time: Mar 09 2021 10:00A Dictated by : ALEX MUNIZ MD This examination was interpreted and the report reviewed and electronically signed by: ALEX MUNIZ MD on Mar 09 2021 10:01AM EST [facility] Radiology Study observation (narrative) [facility] XR Chest PA and LateralOrder ed By: Ccf Provider on 03-09-[address] [facility] Basic Panelon 07-02-2018 Anion gap 3 molar conc 8 mmol/L Normal 8-20 [facility] Comment on above: Performed By: #### L P8 ####[place] [address] Calcium mass conc 8.9 mg/dL Normal 8.5-10.1 [facility] Comment on above: Performed By: #### L P8 ####[place] [address] Chloride molar conc 104 mmol/L Normal 98-107 [facility] Comment on above: Performed By: #### L P8 ####[facility] [place] [address] CO2 molar conc 27 mmol/L Normal 21-32 [facility] Comment on above: Performed By: #### L P8 ####[facility] [place] [address] Creatinine mass conc 0.87 mg/dL Normal 0.51-0.95 [facility] Comment on above: Performed By: #### L P8 ####[facility] [place] [address] Glucose mass conc 89 mg/dL Normal 70-99 [facility] Comment on above: Performed By: #### L P8 ####[facility] [place] [address] Potassium molar conc 3.5 mmol/L Normal 3.5-5.1 [facility] Comment on above: Performed By: #### L P8 ####[place] [address] Sodium molar conc 136 mmol/L Normal 136-145 [facility] Comment on above: Performed By: #### L P8 ####[place] [address] Urea nitrogen mass conc (Bld) 11 mg/dL Normal 7-25 [facility] Comment on above: Performed By: #### L P8 ####[place] [address] Urea nitrogen/Creatinine mass ratio 13 mg/mg Normal 10-20 [facility] Comment on above: Performed By: #### L P8 ####[place] [address] CPKon 07-02-2018 CPK 539 U/L High 26-192 [facility] Comment on above: Performed By: #### L CK ####[place] [address] Cult Urineon 07-02-2018 Cult Urine Test performed at [facility] No growth Normal [facility] Comment on above: Performed By: #### C _URI ####[place] [address] Hemogram/Manual Diffon 07-02 Abs. Baso 0.00 thou/cmm Normal 0.00-0.08 [facility] Comment on above: Performed By: #### L MCBD ####[place] [address] Abs. Eosin 0.14 thou/cmm Normal 0.00-0.41 [facility] Comment on above: Performed By: #### L MCBD ####[place] [address] Abs. Lymph 3.15 thou/cmm Normal 1.50-3.65 [facility] Comment on above: Performed By: #### L MCBD ####[facility] [place] [address] Abs. [place] 1.10 thou/cmm High 0.20-1.00 [facility] Comment on above: Performed By: #### L MCBD ####[place] [address] Abs. Neut (ANC) 9.31 thou/cmm High 3.00-5.67 [facility] Comment on above: Performed By: #### L MCBD ####[place] [address] Basophil 0.0 % Normal [facility] Comment on above: Performed By: #### L MCBD ####[place] [address] Diff Type Manual Diff Normal [facility] Comment on above: Performed By: #### L MCBD ####[place] [address] Eosinophil 1.0 % Normal [facility] Comment on above: Performed By: #### L MCBD ####[place] [address] Lymphocyte 23.0 % Normal [facility] Comment on above: Performed By: #### L MCBD ####[place] [address] Monocyte 8.0 % Normal [facility] Comment on above: Performed By: #### L MCBD ####[place] [address] Platelet Estimate Normal Normal [facility] Comment on above: Performed By: #### L MCBD ####[place] [address] RBC Morphology Normal Normal [facility] Comment on above: Performed By: #### L MCBD ####[place] [address] Seg Neutrophil 68.0 % Normal [facility] Comment on above: Performed By: #### L MCBD ####[place] [address] Erythrocyte distribution width Auto Ratio (RBC) 12.0 % Normal 11.5-15.9 [facility] Comment on above: Performed By: #### L MCBD ####[place] [address] Hct 39.1 % Normal 37.0-47.0 [facility] Comment on above: Performed By: #### L MCBD ####[place] [address] Hgb 13.5 g/dL Normal 12.0-16.0 [facility] Comment on above: Performed By: #### L MCBD ####[place] [address] MCH 32.1 pg High 27.0-31.0 [facility] Comment on above: Performed By: #### L MCBD ####[place] [address] MCHC 34.5 % Normal 32.0-36.0 [facility] Comment on above: Performed By: #### L MCBD ####[place] [address] MCV 92.9 fl Normal 81.0-99.0 [facility] Comment on above: Performed By: #### L MCBD ####[place] [address] MPV 10.3 fl Normal 7.1-10.5 [facility] Comment on above: Performed By: #### L MCBD ####[place] [address] Platelet 256 thou/cmm Normal 150-400 [facility] Comment on above: Performed By: #### L MCBD ####[place] [address] RBC Test strip #/vol (U) 4.21 mil/cmm Normal 4.20-5.40 [facility] Comment on above: Performed By: #### L MCBD ####[place] [address] WBC 13.7 thou/cmm High 4.8-10.8 [facility] Comment on above: Performed By: #### L MCBD ####[place] [address] MDRD eGFRon 07-02-2018 GFR/1.73 sq M predicted among non-blacks MDRD vol rate/area (S/P/Bld) mL/min/{1.73_m2} Normal >60mL/min/1.73m 2 [facility] Comment on above: Result Comment: If t he patient is , multiply the result by 1.210. Performed By: #### L GFR ####[place] [address] Rapid Influenza A/Bon 2018 Rapid Influenza A/B See below Normal Negative [facility] Comment on above: Result Comment: Nega tive for influenza A and B. Performed By: #### L RFLU ####[place] [address] TSHon 07-02-2018 Thyrotropin Qn 1.96 uIU/mL Normal 0.34-4.82 [facility] Comment on above: Performed By: #### L TSH ####[place] [address] Urinalysis Routineon 019 Appearance Nom (U) 1+ (HAZY) Normal [facility] Comment on above: Performed By: #### L URIN ####[place] [address] Bacteria LM.HPF #/area (Urine sed) MANY Abnormal None [facility] Comment on above: Performed By: #### L URIN ####[place] [address] Bilirubin Urine Negative Normal Negative [facility] Comment on above: Performed By: #### L URIN ####[place] [address] Color Nom (U) DARK YELLOW Normal [facility] Comment on above: Performed By: #### L URIN ####[facility] [place], [place] [address] Ep Cells Urine 13-20 Normal 0-5 [facility] Comment on above: Performed By: #### L URIN ####[address] [address] Glucose Ql (U) Negative Normal Negative [facility] Comment on above: Performed By: #### L URIN ####[place] [address] Hemoglobin,Urine Negative Normal Negative [facility] Comment on above: Performed By: #### L URIN ####[place] [address] Ketone Urine Negative Normal Negative [facility] Comment on above: Performed By: #### L URIN ####[place] [address] Leukocytes Esterase Negative Normal Negative [facility] Comment on above: Performed By: #### L URIN ####[place] [address] Nitrites Urine Negative Normal Negative [facility] Comment on above: Performed By: #### L URIN ####[place] [address] pH Test strip (U) 6.0 [pH] Normal 5.0-8.0 [facility] Comment on above: Performed By: #### L URIN ####[address] [address] Protein Urine Negative Normal Negative [facility] Comment on above: Performed By: #### L URIN ####[place] [address] RBC LM.HPF #/area (Urine sed) NONE Normal 0-3 [facility] Comment on above: Performed By: #### L URIN ####[place] [address] Specific [place], Ur 1.025 Normal 1.005-1.030 [facility] Comment on above: Performed By: #### L URIN ####[facility] [place], [place] [address] Urobilinogen,Ur 0.2 EU/dL Normal 0.0-1.0 [facility] Comment on above: Performed By: #### L URIN ####[facility] [place], [place] [address] WBC LM.HPF #/area (Urine sed) NONE Normal 0-5 [facility] Comment on above: Performed By: #### L URIN ####[facility] [place], [place] [address] FOOT 3V AP/LAT/OBL LEFTon FOOT 3V AP/LAT/OBL LEFT Performed at [facility] APPROVED BY: Jonh Landry MD EXAM TITLE: THREE VIEWS OF THE LEFT FOOT DATE:01/30/2018 12:40 COMPARISON: None. CLINICAL INDICATION/HISTORY: Pain and swelling TECHNIQUE: AP, lateral and oblique images FINDINGS: No fracture or dislocation is seen. Osseous relationships are maintained on this nonweightbearing study. No suspicious osseous lesions. Joint spaces are preserved. IMPRESSION: Negative foot x-ray Normal [facility] CT ABDOMEN AND PELVIS W/O CO NTRASTon 01-23-2018 CT ABDOMEN AND PELVIS W/O CONTRAST Performed at [facility] APPROVED BY: Adry Cabrera MD Exam [...] are no signs of appendicitis otherwise. Normal [facility] Chlam/GC-DNA Amplifiedon Chlam/GC-DNA Amplified [facility]ydia trachomatis DNA NOT DETECTEDNeisseria gonorrhoeae DNA NOT DETECTEDReference range NOT DETECTEDMethod: Strand Displacement Amplification-BD ProbeTec AssayComment: A negative result does not precludeC.trachomatis or N. gonorrhoeae infection becauseresults are dependent on adequate specimen collection,absence of inhibitors, and sufficient DNA to be detected. Normal [facility] Comment on above: Performed By: #### C TGCA ####[place] [address] Comprehensive Panelon 2017 Albumin mass conc 4.0 g/dL Normal 3.4-5.0 [facility] Comment on above: Performed By: #### L P14 ####[place] [address] ALP enzyme act/vol 63 U/L Normal 46-116 [facility] Comment on above: Performed By: #### L P14 ####[place] [address] ALT-SGPT Blood 41 U/L Normal 14-63 [facility] Comment on above: Performed By: #### L P14 ####[place] [address] Anion gap 3 molar conc 12 mmol/L Normal 8-20 [facility] Comment on above: Performed By: #### L P14 ####[place] [address] AST-SGOT Blood 29 U/L Normal 15-37 [facility] Comment on above: Performed By: #### L P14 ####[address], [place] [address] Bilirubin Ql (U) 0.6 mg/dL Normal 0.2-1.0 [facility] Comment on above: Performed By: #### L P14 ####[facility] [place], [place] [address] Calcium mass conc 8.9 mg/dL Normal 8.5-10.1 [facility] Comment on above: Performed By: #### L P14 ####[facility] [place], [place] [address] Chloride molar conc 93 mmol/L Low 98-107 [facility] Comment on above: Performed By: #### L P14 ####[place] [address] CO2 molar conc 24 mmol/L Normal 21-32 [facility] Comment on above: Performed By: #### L P14 ####[place] [address] Creatinine mass conc 0.69 mg/dL Normal 0.51-0.95 [facility] Comment on above: Performed By: #### L P14 ####[place] [address] Glucose mass conc 69 mg/dL Low 70-99 [facility] Comment on above: Performed By: #### L P14 ####[place] [address] Potassium molar conc 3.7 mmol/L Normal 3.5-5.1 [facility] Comment on above: Performed By: #### L P14 ####[address] [address] Protein mass conc 7.5 g/dL Normal 6.4-8.2 [facility] Comment on above: Performed By: #### L P14 ####[place] [address] Sodium molar conc 125 mmol/L Low 136-145 [facility] Comment on above: Performed By: #### L P14 ####[place] [address] Urea nitrogen mass conc (Bld) 7 mg/dL Normal 7-25 [facility] Comment on above: Performed By: #### L P14 ####[place] [address] Urea nitrogen/Creatinine mass ratio 10 mg/mg Normal 10-20 [facility] Comment on above: Performed By: #### L P14 ####[place] [address] Hemogram/Manual Diffon 01-23 Abs. Baso 0.17 thou/cmm High 0.00-0.08 [facility] Comment on above: Performed By: #### L MCBD ####[place] [address] Abs. Eosin 0.00 thou/cmm Normal 0.00-0.41 [facility] Comment on above: Performed By: #### L MCBD ####[place] [address] Abs. Lymph 2.22 thou/cmm Normal 1.50-3.65 [facility] Comment on above: Performed By: #### L MCBD ####[place] [address] Abs. Horry 2.05 thou/cmm High 0.20-1.00 [facility] Comment on above: Performed By: #### L MCBD ####[place] [address] Abs. Neut (ANC) 12.66 thou/cmm High 3.00-5.67 [facility] Comment on above: Performed By: #### L MCBD ####[place] [address] Basophil 1.0 % Normal [facility] Comment on above: Performed By: #### L MCBD ####[place] [address] Eosinophil 0.0 % Normal [facility] Comment on above: Performed By: #### L MCBD ####[place] [address] Lymphocyte 13.0 % Normal [facility] Comment on above: Performed By: #### L MCBD ####[facility] [place] [address] Monocyte 12.0 % Normal [facility] Comment on above: Performed By: #### L MCBD ####[place] [address] Platelet Estimate Normal Normal [facility] Comment on above: Performed By: #### L MCBD ####[place] [address] RBC Morphology Normal Normal [facility] Comment on above: Performed By: #### L MCBD ####[place] [address] Seg Neutrophil 74.0 % Normal [facility] Comment on above: Performed By: #### L MCBD ####[place] [address] Diff Type Manual Diff Normal [facility] Comment on above: Performed By: #### L MCBD ####[place] [address] Erythrocyte distribution width Auto Ratio (RBC) 11.6 % Normal 11.5-15.9 [facility] Comment on above: Performed By: #### L MCBD ####[place] [address] Hct 40.8 % Normal 37.0-47.0 [facility] Comment on above: Performed By: #### L MCBD ####[place] [address] Hgb 14.2 g/dL Normal 12.0-16.0 [facility] Comment on above: Performed By: #### L MCBD ####[place] [address] MCH 31.8 pg High 27.0-31.0 [facility] Comment on above: Performed By: #### L MCBD ####[place] [address] MCHC 34.8 % Normal 32.0-36.0 [facility] Comment on above: Performed By: #### L MCBD ####[facility] [place], [place] [address] MCV 91.3 fl Normal 81.0-99.0 [facility] Comment on above: Performed By: #### L MCBD ####[facility] [place], [place] [address] MPV 10.0 fl Normal 7.1-10.5 [facility] Comment on above: Performed By: #### L MCBD ####[address] [address] Platelet 263 thou/cmm Normal 150-400 [facility] Comment on above: Performed By: #### L MCBD ####[place] [address] RBC Test strip #/vol (U) 4.47 mil/cmm Normal 4.20-5.40 [facility] Comment on above: Performed By: #### L MCBD ####[place] [address] WBC 17.1 thou/cmm High 4.8-10.8 [facility] Comment on above: Performed By: #### L MCBD ####[place] [address] MDRD eGFRon 01-23-2018 GFR/1.73 sq M predicted among non-blacks MDRD vol rate/area (S/P/Bld) mL/min/{1.73_m2} Normal >60mL/min/1.73m 2 [facility] Comment on above: Result Comment: If t he patient is , multiply the result by 1.210. Performed By: #### L GFR ####[address] [address] Macroscopic Urinalysison Appearance Nom (U) CLEAR Normal [facility] Comment on above: Performed By: #### L MACU ####[address] [address] Bilirubin Urine Negative Normal Negative [facility] Comment on above: Performed By: #### L MACU ####[facility] [place] [address] Color Nom (U) STRAW Normal [facility] Comment on above: Performed By: #### L MACU ####[address] [address] Glucose Ql (U) Negative Normal Negative [facility] Comment on above: Performed By: #### L MACU ####[place] [address] Hemoglobin,Urine Negative Normal Negative [facility] Comment on above: Performed By: #### L MACU ####[place] [address] Ketone Urine Negative Normal Negative [facility] Comment on above: Performed By: #### L MACU ####[place] [address] Leukocytes Esterase Negative Normal Negative [facility] Comment on above: Performed By: #### L MACU ####[place] [address] Nitrites Urine Negative Normal Negative [facility] Comment on above: Performed By: #### L MACU ####[place] [address] pH Test strip (U) 6.5 [pH] Normal 5.0-8.0 [facility] Comment on above: Performed By: #### L MACU ####[place] [address] Protein Urine Negative Normal Negative [facility] Comment on above: Performed By: #### L MACU ####[place] [address] Specific [place], Ur <=1.005 Normal 1.005-1.030 [facility] Comment on above: Performed By: #### L MACU ####[place] [address] Urobilinogen,Ur 0.2 EU/dL Normal 0.0-1.0 [facility] Comment on above: Performed By: #### L MACU ####[place] [address] US PELVIS NON-OB COMPLETEon 01-23-2018 US PELVIS NON-OB COMPLETE Performed at [facility] APPROVED BY: Adry Cabrera MD EXAMINATION: [...] uterine fibroids and small uterine cyst. Normal [facility] US TRANSVAGINALon 01-23-2018 US TRANSVAGINAL Performed at [facility] APPROVED BY: Adry Cabrera MD EXAMINATION: [...] uterine fibroids and small uterine cyst. Normal [facility] Vital Signs Date Time Vital Sign Value Performing Clinician aHlina lyles 12-03-2024 10:53-0400 Diastolic blood pressure 65 mm[Hg] Sam Erin DIETITIAN CONSULTANT.EVP [employer] Work Phone: [facility] 12-03-2024 10:53-0400 Heart rate 79 /min Sam Erin DIETITIAN CONSULTANT.[employer] Work Phone: [facility] 12-03-2024 10:53-0400 SaO2% (BldA) [Mass fraction] 98 % Sam Erin DIETITIAN CONSULTANT.[employer] Work Phone: [facility] 12-03-2024 10:53-0400 Systolic blood pressure 111 mm[Hg] Sam Erin DIETITIAN CONSULTANT.[employer] Work Phone: [facility] 11-28-2024 11:12-0400 Body mass index (BMI) [Ratio] 20.73 kg/m2 Sam Erin DIETITIAN CONSULTANT.[employer] Work Phone: [facility] 11-28-2024 11:12-0400 Body weight 56.5 kg Sam Erin DIETITIAN CONSULTANT.EVP [employer] Work Phone: [facility] 11-28-2024 11:12-0400 Diastolic blood pressure 74 mm[Hg] Sam Erin DIETITIAN CONSULTANT.EVP [employer] Work Phone: [facility] 11-28-2024 11:12-0400 Heart rate 117 /min Sam Erin DIETITIAN CONSULTANT.[employer] Work Phone: [facility] 11-28-2024 11:12-0400 SaO2% (BldA) [Mass fraction] 98 % Sam Erin DIETITIAN CONSULTANT.EVP [employer] Work Phone: [facility] 11-28-2024 11:12-0400 Systolic blood pressure 110 mm[Hg] Sam Erin DIETITIAN CONSULTANT.[employer] Work Phone: [facility] 11-22-2024 09:22-0400 Body mass index (BMI) [Ratio] 21.06 kg/m2 Karen Gaspar DIETITIAN CONSULTANT.DESIGN SUPERVISOR Work Phone: [facility] 11-22-2024 09:22-0400 Body weight 57.4 kg Karen Gaspar DIETITIAN CONSULTANT.DESIGN SUPERVISOR Work Phone: [facility] 11-22-2024 09:22-0400 Diastolic blood pressure 73 mm[Hg] Karen Gaspar DIETITIAN CONSULTANT.DESIGN SUPERVISOR Work Phone: [facility] 11-22-2024 09:22-0400 Heart rate 92 /min Karen Gaspar DIETITIAN CONSULTANT.DESIGN SUPERVISOR Work Phone: [facility] 11-22-2024 09:22-0400 Respiratory rate 16 /min Karen Gaspar DIETITIAN CONSULTANT.DESIGN SUPERVISOR Work Phone: [facility] 11-22-2024 09:22-0400 Systolic blood pressure 104 mm[Hg] Karen Gaspar DIETITIAN CONSULTANT.DESIGN SUPERVISOR Work Phone: [facility] 11-02-2024 09:50-0400 Body mass index (BMI) [Ratio] 21.31 kg/m2 Sam Erin DIETITIAN CONSULTANT.EVP [employer] Work Phone: [facility] 11-02-2024 09:50-0400 Body weight 58.1 kg Sam Erin DIETITIAN CONSULTANT.EVP [employer] Work Phone: [facility] 11-02-2024 09:50-0400 Diastolic blood pressure 79 mm[Hg] Sam Erin DIETITIAN CONSULTANT.EVP [employer] Work Phone: [facility] 11-02-2024 09:50-0400 Heart rate 102 /min Sam Erin DIETITIAN CONSULTANT.EVP [employer] Work Phone: [facility] 11-02-2024 09:50-0400 SaO2% (BldA) [Mass fraction] 97 % Sam Erin DIETITIAN CONSULTANT.EVP [employer] Work Phone: [facility] 11-02-2024 09:50-0400 Systolic blood pressure 112 mm[Hg] Sam Erin DIETITIAN CONSULTANT.EVP [employer] Work Phone: [facility] 09-28-2024 09:05-0400 Body height 165.1 cm Pacc 1 Work Phone: [facility] 09-28-2024 09:05-0400 Body mass index (BMI) [Ratio] 21.13 kg/m2 Pacc 1 Work Phone: [facility] 09-28-2024 09:05-0400 Body temperature 97.11 [degF] Pacc 1 Work Phone: [facility] 09-28-2024 09:05-0400 Body weight 57.61 kg Pacc 1 Work Phone: [facility] 09-28-2024 09:05-0400 Diastolic blood pressure 78 mm[Hg] Pacc 1 Work Phone: [facility] 09-28-2024 09:05-0400 Heart rate 85 /min Pacc 1 Work Phone: [facility] 09-28-2024 09:05-0400 Respiratory rate 14 /min Pacc 1 Work Phone: [facility] 09-28-2024 09:05-0400 SaO2% (BldA) [Mass fraction] 98 % Pacc 1 Work Phone: [facility] 09-28-2024 09:05-0400 Systolic blood pressure 102 mm[Hg] Pacc 1 Work Phone: [facility] 09-21-2024 08:53-0400 Body mass index (BMI) [Ratio] 20.1 kg/m2 Sam Erin DIETITIAN CONSULTANT.EVP [employer] Work Phone: [facility] 09-21-2024 08:53-0400 Body weight 56.5 kg Sam Erin DIETITIAN CONSULTANT.EVP [employer] Work Phone: [facility] 09-21-2024 08:53-0400 Diastolic blood pressure 70 mm[Hg] Sam Erin DIETITIAN CONSULTANT.EVP [employer] Work Phone: [facility] 09-21-2024 08:53-0400 Heart rate 98 /min Sam Khan DIETITIAN CONSULTANT.EVP [employer] Work Phone: [facility] 09-21-2024 08:53-0400 SaO2% (BldA) [Mass fraction] 98 % Sam Verduzcor DIETITIAN CONSULTANT.EVP [employer] Work Phone: [facility] 09-21-2024 08:53-0400 Systolic blood pressure 110 mm[Hg] Sam Verduzcor DIETITIAN CONSULTANT.EVP [employer] Work Phone: [facility] 07-31-2024 10:37-0500 Body mass index (BMI) [Ratio] 19.93 kg/m2 Maile Norman MD Work Phone: [facility] 07-31-2024 10:37-0500 Body weight 56 kg Maile Norman MD Work Phone: [facility] 07-31-2024 10:37-0500 Diastolic blood pressure 76 mm[Hg] Maile Norman MD Work Phone: [facility] 07-31-2024 10:37-0500 Heart rate 88 /min Maile Norman MD Work Phone: [facility] 07-31-2024 10:37-0500 SaO2% (BldA) [Mass fraction] 98 % Maile Norman MD Work Phone: [facility] 07-31-2024 10:37-0500 Systolic blood pressure 126 mm[Hg] Maile Norman MD Work Phone: [facility] 07-13-2024 10:39-0500 Body mass index (BMI) [Ratio] 21.35 kg/m2 Karen Gaspar DIETITIAN CONSULTANT.DESIGN SUPERVISOR Work Phone: [facility] 07-13-2024 10:39-0500 Body weight 60 kg Karen Gaspar DIETITIAN CONSULTANT.DESIGN SUPERVISOR Work Phone: [facility] 07-13-2024 10:39-0500 Diastolic blood pressure 85 mm[Hg] Karen Gaspar DIETITIAN CONSULTANT.DESIGN SUPERVISOR Work Phone: [facility] 07-13-2024 10:39-0500 Heart rate 84 /min Karen Gaspar DIETITIAN CONSULTANT.DESIGN SUPERVISOR Work Phone: [facility] 07-13-2024 10:39-0500 Respiratory rate 16 /min Karen Gaspar DIETITIAN CONSULTANT.DESIGN SUPERVISOR Work Phone: [facility] 07-13-2024 10:39-0500 Systolic blood pressure 122 mm[Hg] Karen Gaspar DIETITIAN CONSULTANT.DESIGN SUPERVISOR Work Phone: [facility] 07-11-2024 09:37-0500 Body height 167.6 cm Maile Norman MD Work Phone: [facility] 07-11-2024 09:37-0500 Body mass index (BMI) [Ratio] 20.32 kg/m2 Maile Norman MD Work Phone: [facility] 07-11-2024 09:37-0500 Body weight 57.1 kg Maile Norman MD Work Phone: [facility] 07-11-2024 09:37-0500 Diastolic blood pressure 68 mm[Hg] Maile Norman MD Work Phone: [facility] 07-11-2024 09:37-0500 Heart rate 90 /min Maile Nomran MD Work Phone: [facility] 07-11-2024 09:37-0500 SaO2% (BldA) [Mass fraction] 98 % Maile Norman MD Work Phone: [facility] 07-11-2024 09:37-0500 Systolic blood pressure 90 mm[Hg] Maile Norman MD Work Phone: [facility] 07-09-2024 07:08-0500 Body height 165.1 cm Cecile Harshad DIETITIAN CONSULTANT.EVP [employer] Work Phone: [facility] 07-09-2024 07:08-0500 Body mass index (BMI) [Ratio] 20.97 kg/m2 Cecile [place] DIETITIAN CONSULTANT.EVP [employer] Work Phone: [facility] 07-09-2024 07:08-0500 Body weight 57.15 kg Cecile Harshad DIETITIAN CONSULTANT.EVP [employer] Work Phone: [facility] 07-09-2024 07:08-0500 Diastolic blood pressure 62 mm[Hg] Cecile Harshad DIETITIAN CONSULTANT.EVP [employer] Work Phone: [facility] 07-09-2024 07:08-0500 Systolic blood pressure 110 mm[Hg] Cecile Harshad DIETITIAN CONSULTANT.EVP [employer] Work Phone: [facility] 05-23-2024 07:28-0500 Body mass index (BMI) [Ratio] 20.47 kg/m2 [facility] DIETITIAN CONSULTANT.EVP [employer] Work Phone: [facility] 05-23-2024 07:28-0500 Body temperature 97.59 [degF] [facility] DIETITIAN CONSULTANT.EVP [employer] Work Phone: [facility] 05-23-2024 07:28-0500 Body weight 55.[address] [facility] DIETITIAN CONSULTANT.EVP [employer] Work Phone: [facility] 05-23-2024 07:28-0500 Diastolic blood pressure 82 mm[Hg] Galo [facility] DIETITIAN CONSULTANT.EVP [employer] Work Phone: [facility] 05-23-2024 07:28-0500 Heart rate 96 /min [facility] DIETITIAN CONSULTANT.EVP [employer] Work Phone: [facility] 05-23-2024 07:28-0500 Respiratory rate 18 /min [facility] DIETITIAN CONSULTANT.EVP [employer] Work Phone: [facility] 05-23-2024 07:28-0500 SaO2% (BldA) [Mass fraction] 96 % [facility] DIETITIAN CONSULTANT.EVP [employer] Work Phone: [facility] 05-23-2024 07:28-0500 Systolic blood pressure 122 mm[Hg] [facility] DIETITIAN CONSULTANT.EVP [employer] Work Phone: [facility] 05-15-2024 12:59-0500 Body mass index (BMI) [Ratio] 20.58 kg/m2 Anny Cuong DIETITIAN CONSULTANT.EVP [employer] Work Phone: [facility] 05-15-2024 12:59-0500 Body temperature 98.2 [degF] Anny Cuong DIETITIAN CONSULTANT.EVP [employer] Work Phone: [facility] 05-15-2024 12:59-0500 Body weight 56.1 kg Anny Cuong DIETITIAN CONSULTANT.EVP [employer] Work Phone: [facility] 05-15-2024 12:59-0500 Diastolic blood pressure 84 mm[Hg] Anny Cuong DIETITIAN CONSULTANT.EVP [employer] Work Phone: [facility] 05-15-2024 12:59-0500 Heart rate 88 /min Anny Cuong DIETITIAN CONSULTANT.EVP [employer] Work Phone: [facility] 05-15-2024 12:59-0500 Respiratory rate 18 /min Anny Cuong DIETITIAN CONSULTANT.EVP [employer] Work Phone: [facility] 05-15-2024 12:59-0500 Systolic blood pressure 122 mm[Hg] Anny Cuong DIETITIAN CONSULTANT.EVP [employer] Work Phone: [facility] 05-11-2024 08:43-0500 Body mass index (BMI) [Ratio] 20.4 kg/m2 Yodit Saxena DIETITIAN CONSULTANT.EVP [employer] Work Phone: [facility] 05-11-2024 08:43-0500 Body temperature 97.59 [degF] Yodit Saxena DIETITIAN CONSULTANT.EVP [employer] Work Phone: [facility] 05-11-2024 08:43-0500 Body weight 55.6 kg Yodit Saxena DIETITIAN CONSULTANT.EVP [employer] Work Phone: [facility] 05-11-2024 08:43-0500 Diastolic blood pressure 88 mm[Hg] Yodit Saxena DIETITIAN CONSULTANT.EVP [employer] Work Phone: [facility] 05-11-2024 08:43-0500 Heart rate 104 /min Yodit Saxena DIETITIAN CONSULTANT.EVP [employer] Work Phone: [facility] 05-11-2024 08:43-0500 Respiratory rate 20 /min Yodit Saxena DIETITIAN CONSULTANT.EVP [employer] Work Phone: [facility] 05-11-2024 08:43-0500 SaO2% (BldA) [Mass fraction] 98 % Yodit Saxena DIETITIAN CONSULTANT.EVP [employer] Work Phone: [facility] 05-11-2024 08:43-0500 Systolic blood pressure 120 mm[Hg] Yodit Saxena DIETITIAN CONSULTANT.EVP [employer] Work Phone: [facility] 05-10-2024 12:02-0500 Body mass index (BMI) [Ratio] 20.14 kg/m2 Karen Gaspar DIETITIAN CONSULTANT.DESIGN SUPERVISOR Work Phone: [facility] 05-10-2024 12:02-0500 Body weight 54.9 kg Karen Gaspar DIETITIAN CONSULTANT.DESIGN SUPERVISOR Work Phone: [facility] 05-10-2024 12:02-0500 Diastolic blood pressure 73 mm[Hg] Karen Gaspar DIETITIAN CONSULTANT.DESIGN SUPERVISOR Work Phone: [facility] 05-10-2024 12:02-0500 Heart rate 108 /min Karen Gaspar DIETITIAN CONSULTANT.DESIGN SUPERVISOR Work Phone: [facility] 05-10-2024 12:02-0500 Respiratory rate 16 /min Karen Gaspar DIETITIAN CONSULTANT.DESIGN SUPERVISOR Work Phone: [facility] 05-10-2024 12:02-0500 Systolic blood pressure 125 mm[Hg] Karen Gaspar DIETITIAN CONSULTANT.DESIGN SUPERVISOR Work Phone: [facility] 04-29-2024 20:50-0500 Body temperature 96.98 [degF] JUAN MIGUEL MANLEY MD [facility] 04-29-2024 20:50-0500 Body weight 56.4 kg JUAN MIGUEL MANLEY MD [facility] 04-29-2024 20:50-0500 Diastolic Blood Pressure Non-Invasive 85 mm[Hg] JUAN MIGUEL MANLEY MD [facility] 04-29-2024 20:50-0500 Heart rate 80 /min JUAN MIGUEL MANLEY MD [facility] 04-29-2024 20:50-0500 Respiratory rate 16 /min JUAN MIGUEL MANLEY MD [facility] 04-29-2024 20:50-0500 Systolic Blood Pressure Non-Invasive 126 mm[Hg] JUAN MIGUEL MANLEY MD [facility] 04-25-2024 13:04-0400 Body mass index (BMI) [Ratio] 20.58 kg/m2 Sam Erin DIETITIAN CONSULTANT.[employer] Work Phone: [facility] 04-25-2024 13:04-0400 Body weight 56.1 kg Sam Erin DIETITIAN CONSULTANT.[employer] Work Phone: [facility] 04-25-2024 13:04-0400 Diastolic blood pressure 88 mm[Hg] Sam Erin DIETITIAN CONSULTANT.[employer] Work Phone: [facility] 04-25-2024 13:04-0400 Heart rate 87 /min Sam Erin DIETITIAN CONSULTANT.[employer] Work Phone: [facility] 04-25-2024 13:04-0400 Respiratory rate 16 /min Sam Erin DIETITIAN CONSULTANT.[employer] Work Phone: [facility] 04-25-2024 13:04-0400 SaO2% (BldA) [Mass fraction] 99 % Sam Erin DIETITIAN CONSULTANT.[employer] Work Phone: [facility] 04-25-2024 13:04-0400 Systolic blood pressure 144 mm[Hg] Sam Erin DIETITIAN CONSULTANT.[employer] Work Phone: [facility] 04-13-2024 12:39-0400 Body mass index (BMI) [Ratio] 20.18 kg/m2 Pennie Clemente APRN.[employer] Work Phone: [facility] 04-13-2024 12:39-0400 Body temperature 97 [degF] Pennie Praisler-Wood DIETITIAN CONSULTANT.[employer]P [employer] Work Phone: [facility] 04-13-2024 12:39-0400 Body weight 55 kg Pennie Praisler-Wood DIETITIAN CONSULTANT.[employer] Work Phone: [facility] 04-13-2024 12:39-0400 Diastolic blood pressure 78 mm[Hg] Pennie Praisler-Wood DIETITIAN CONSULTANT.[employer] Work Phone: [facility] 04-13-2024 12:39-0400 Heart rate 78 /min Pennie Praisler-Wood DIETITIAN CONSULTANT.[facility] Work Phone: [facility] 04-13-2024 12:39-0400 Respiratory rate 16 /min Pennie Praisler-Wood DIETITIAN CONSULTANT.[facility] Work Phone: [facility] 04-13-2024 12:39-0400 SaO2% (BldA) [Mass fraction] 100 % Pennie Praisler-Wood DIETITIAN CONSULTANT.[employer] Work Phone: [facility] 04-13-2024 12:39-0400 Systolic blood pressure 112 mm[Hg] Pennie Praisler-Wood DIETITIAN CONSULTANT.[facility] Work Phone: [facility] 03-28-2024 15:49-0400 Body mass index (BMI) [Ratio] 20.84 kg/m2 Maile Norman MD Work Phone: [facility] 03-28-2024 15:49-0400 Body temperature 97.3 [degF] Maile Norman MD Work Phone: [facility] 03-28-2024 15:49-0400 Body weight 56.8 kg Maile Norman MD Work Phone: [facility] 03-28-2024 15:49-0400 Diastolic blood pressure 87 mm[Hg] Maile Norman MD Work Phone: [facility] 03-28-2024 15:49-0400 Heart rate 80 /min Maile Norman MD Work Phone: [facility] 03-28-2024 15:49-0400 Respiratory rate 16 /min Maile Norman MD Work Phone: [facility] 03-28-2024 15:49-0400 SaO2% (BldA) [Mass fraction] 100 % Maile Norman MD Work Phone: [facility] 03-28-2024 15:49-0400 Systolic blood pressure 133 mm[Hg] Maile Norman MD Work Phone: [facility] 02-28-2024 08:35-0400 Body mass index (BMI) [Ratio] 20.21 kg/m2 Sam Erin DIETITIAN CONSULTANT.[employer] Work Phone: [facility] 02-28-2024 08:35-0400 Body temperature 97 [degF] Sam Erin DIETITIAN CONSULTANT.[employer]P [employer] Work Phone: [facility] 02-28-2024 08:35-0400 Body weight 55.1 kg Sam Erin DIETITIAN CONSULTANT.[employer] Work Phone: [facility] 02-28-2024 08:35-0400 Diastolic blood pressure 80 mm[Hg] Sam Erin DIETITIAN CONSULTANT.[employer] Work Phone: [facility] 02-28-2024 08:35-0400 Heart rate 78 /min Sam Erin DIETITIAN CONSULTANT.[employer] Work Phone: [facility] 02-28-2024 08:35-0400 Respiratory rate 20 /min Sam Erin DIETITIAN CONSULTANT.EVP [employer] Work Phone: [facility] 02-28-2024 08:35-0400 SaO2% (BldA) [Mass fraction] 97 % Sam Erin DIETITIAN CONSULTANT.[employer] Work Phone: [facility] 02-28-2024 08:35-0400 Systolic blood pressure 118 mm[Hg] Sam Erin DIETITIAN CONSULTANT.[employer] Work Phone: [facility] 02-16-2024 18:49-0400 Body mass index (BMI) [Ratio] 20.76 kg/m2 Krislyn Aberegg PA Work Phone: [facility] 02-16-2024 18:49-0400 Body temperature 98.2 [degF] Krislyn Aberegg PA Work Phone: [facility] 02-16-2024 18:49-0400 Body weight 56.6 kg Krislyn Aberegg PA Work Phone: [facility] 02-16-2024 18:49-0400 Diastolic blood pressure 73 mm[Hg] Krislyn Aberegg PA Work Phone: [facility] 02-16-2024 18:49-0400 Heart rate 85 /min Krislyn Aberegg PA Work Phone: [facility] 02-16-2024 18:49-0400 Respiratory rate 18 /min Krislyn Aberegg PA Work Phone: [facility] 02-16-2024 18:49-0400 SaO2% (BldA) [Mass fraction] 100 % Krislyn Aberegg PA Work Phone: [facility] 02-16-2024 18:49-0400 Systolic blood pressure 113 mm[Hg] Krislyn Aberegg PA Work Phone: [facility] 02-10-2024 17:05-0400 Diastolic Blood Pressure Non-Invasive 87 mm[Hg] JUAN MIGUEL MANLEY MD [facility] 02-10-2024 17:05-0400 Heart rate 95 /min JUAN MIGUEL MANLEY MD [facility] 02-10-2024 17:05-0400 Respiratory rate 16 /min JUAN MIGUEL MANLEY MD [facility] 02-10-2024 17:05-0400 Systolic Blood Pressure Non-Invasive 123 mm[Hg] JUAN MIGUEL MANLEY MD [facility] 02-10-2024 15:40-0400 Body temperature 97.16 [degF] JUAN MIGUEL MANLEY MD [facility] 02-10-2024 15:40-0400 Body weight 54.3 kg JUAN MIGUEL MANLEY MD [facility] 02-10-2024 15:40-0400 Diastolic Blood Pressure Non-Invasive 60 mm[Hg] UJAN MIGUEL MANLEY MD [facility] 02-10-2024 15:40-0400 Heart rate 111 /min JUAN MIGUEL MANLEY MD [facility] 02-10-2024 15:40-0400 Respiratory rate 18 /min JUAN MIGUEL MANLEY MD [facility] 02-10-2024 15:40-0400 Systolic Blood Pressure Non-Invasive 98 mm[Hg] JUAN MIGUEL MANLEY MD [facility] 02-07-2024 15:03-0400 Body height 165.1 cm Louis Valencia MD Work Phone: [facility] 02-07-2024 15:03-0400 Body mass index (BMI) [Ratio] 20.8 kg/m2 Loius Valencia MD Work Phone: [facility] 02-07-2024 15:03-0400 Body weight 56.7 kg Louis Valencia MD Work Phone: [facility] 02-07-2024 15:03-0400 Respiratory rate 16 /min Louis Valencia MD Work Phone: [facility] 01-25-2024 14:44-0400 Body mass index (BMI) [Ratio] 20.8 kg/m2 Sam Erin DIETITIAN CONSULTANT.EVP [employer] Work Phone: [facility] 01-25-2024 14:44-0400 Body weight 56.7 kg Sam Erin DIETITIAN CONSULTANT.EVP [employer] Work Phone: [facility] 01-25-2024 14:44-0400 Diastolic blood pressure 66 mm[Hg] Sam Erin DIETITIAN CONSULTANT.EVP [employer] Work Phone: [facility] 01-25-2024 14:44-0400 Heart rate 96 /min Sam Erin DIETITIAN CONSULTANT.EVP [employer] Work Phone: [facility] 01-25-2024 14:44-0400 Respiratory rate 16 /min Sam Erin DIETITIAN CONSULTANT.EVP [employer] Work Phone: [facility] 01-25-2024 14:44-0400 Systolic blood pressure 102 mm[Hg] Sam Erin DIETITIAN CONSULTANT.[employer] Work Phone: [facility] 01-11-2024 13:33-0400 Body mass index (BMI) [Ratio] 20.7 kg/m2 Sam Erin DIETITIAN CONSULTANT.EVP [employer] Work Phone: [facility] 01-11-2024 13:33-0400 Body weight 56.43 kg Sam Erin DIETITIAN CONSULTANT.EVP [employer] Work Phone: [facility] 01-11-2024 13:33-0400 Diastolic blood pressure 62 mm[Hg] Sam Erin DIETITIAN CONSULTANT.EVP [employer] Work Phone: [facility] 01-11-2024 13:33-0400 Heart rate 86 /min Sam Erin DIETITIAN CONSULTANT.EVP [employer] Work Phone: [facility] 01-11-2024 13:33-0400 Respiratory rate 18 /min Sam Erin DIETITIAN CONSULTANT.EVP [employer] Work Phone: [facility] 01-11-2024 13:33-0400 SaO2% (BldA) [Mass fraction] 94 % Sam Erin DIETITIAN CONSULTANT.[employer] Work Phone: [facility] 01-11-2024 13:33-0400 Systolic blood pressure 96 mm[Hg] Sam Erin DIETITIAN CONSULTANT.[employer] Work Phone: [facility] 12-20-2023 07:50-0400 Body mass index (BMI) [Ratio] 19.8 kg/m2 Sam Erin DIETITIAN CONSULTANT.[employer] Work Phone: [facility] 12-20-2023 07:50-0400 Body weight 53.98 kg Sam Erin DIETITIAN CONSULTANT.[employer]P [employer] Work Phone: [facility] 12-20-2023 07:50-0400 Diastolic blood pressure 80 mm[Hg] Sam Erin DIETITIAN CONSULTANT.[employer]P [employer] Work Phone: [facility] 12-20-2023 07:50-0400 Heart rate 114 /min Sam Erin DIETITIAN CONSULTANT.EVP [employer] Work Phone: [facility] 12-20-2023 07:50-0400 SaO2% (BldA) [Mass fraction] 97 % Sam Erin DIETITIAN CONSULTANT.[employer] Work Phone: [facility] 12-20-2023 07:50-0400 Systolic blood pressure 130 mm[Hg] Sam Erin DIETITIAN CONSULTANT.EVP [employer] Work Phone: [facility] 11-11-2023 10:06-0400 Body mass index (BMI) [Ratio] 20.47 kg/m2 Sam Erin DIETITIAN CONSULTANT.[employer] Work Phone: [facility] 11-11-2023 10:06-0400 Body weight 55.79 kg Sam Erin DIETITIAN CONSULTANT.EVP [employer] Work Phone: [facility] 11-11-2023 10:06-0400 Diastolic blood pressure 82 mm[Hg] Sam Erin DIETITIAN CONSULTANT.EVP [employer] Work Phone: [facility] 11-11-2023 10:06-0400 Heart rate 85 /min Sam Erin DIETITIAN CONSULTANT.EVP [employer] Work Phone: [facility] 11-11-2023 10:06-0400 SaO2% (BldA) [Mass fraction] 98 % Sam Erin DIETITIAN CONSULTANT.EV[employer] Work Phone: [facility] 11-11-2023 10:06-0400 Systolic blood pressure 110 mm[Hg] Sam Erin DIETITIAN CONSULTANT.EVP [employer] Work Phone: [facility] 10-14-2023 11:26-0400 Body height 165.1 cm Sam Erin DIETITIAN CONSULTANT.EVP [employer] Work Phone: [facility] 10-14-2023 11:26-0400 Body weight 55.79 kg Sam Erin DIETITIAN CONSULTANT.EVP [employer] Work Phone: [facility] 10-14-2023 11:26-0400 Diastolic blood pressure 70 mm[Hg] Sam Erin DIETITIAN CONSULTANT.EVP [employer] Work Phone: [facility] 10-14-2023 11:26-0400 Heart rate 107 /min Sam Erin DIETITIAN CONSULTANT.EVP [employer] Work Phone: [facility] 10-14-2023 11:26-0400 Respiratory rate 12 /min Sam Erin DIETITIAN CONSULTANT.EVP [employer] Work Phone: [facility] 10-14-2023 11:26-0400 SaO2% (BldA) [Mass fraction] 97 % Sam Erin DIETITIAN CONSULTANT.EV[employer] Work Phone: [facility] 10-14-2023 11:26-0400 Systolic blood pressure 132 mm[Hg] Sam Erin DIETITIAN CONSULTANT.EV[employer] Work Phone: [facility] 10-11-2023 10:16-0400 Body height 165.1 cm Louis Valencia MD Work Phone: [facility] 10-11-2023 10:160400 Body weight 55.79 kg Louis Valencia MD Work Phone: [facility] 10-11-2023 10:16-0400 Respiratory rate 20 /min Louis Valencia MD Work Phone: [facility] 09-27-2023 13:15-0400 Body temperature 96.3 [degF] Sam Erin DIETITIAN CONSULTANT.[employer] Work Phone: [facility] 09-27-2023 13:15-0400 Body weight 55.79 kg Sam Erin DIETITIAN CONSULTANT.[employer] Work Phone: [facility] 09-27-2023 13:15-0400 Diastolic blood pressure 60 mm[Hg] Sam Erin DIETITIAN CONSULTANT.[employer]P [employer] Work Phone: [facility] 09-27-2023 13:15-0400 Heart rate 76 /min Sam Erin DIETITIAN CONSULTANT.EVP [employer] Work Phone: [facility] 09-27-2023 13:15-0400 Respiratory rate 20 /min Sam Erin DIETITIAN CONSULTANT.EVP [employer] Work Phone: [facility] 09-27-2023 13:15-0400 Systolic blood pressure 114 mm[Hg] Sam Erin DIETITIAN CONSULTANT.[employer] Work Phone: [facility] 09-26-2023 22:13-0400 Diastolic Blood Pressure Non-Invasive 76 mm[Hg] DR TU DE ANDA MD [facility] 09-26-2023 22:13-0400 Heart rate 63 /min DR TU DE ANDA MD [facility] 09-26-2023 22:13-0400 Respiratory rate 16 /min DR TU DE ANDA MD [facility] 09-26-2023 22:13-0400 Systolic Blood Pressure Non-Invasive 133 mm[Hg] DR TU DE ANDA MD [facility] 09-26-2023 19:34-0400 Body height 175.[address] TU DE ANDA MD [facility] 09-26-2023 19:34-0400 Body temperature 98.42 [degF] DR TU DE ANDA MD [facility] 09-26-2023 19:34-0400 Body weight 56.[address] TU DE ANDA MD [facility] 09-26-2023 19:34-0400 Diastolic Blood Pressure Non-Invasive 68 mm[Hg] DR TU DE ANDA MD [facility] 09-26-2023 19:34-0400 Heart rate 104 /min DR TU DE ANDA MD [facility] 09-26-2023 19:34-0400 Respiratory rate 18 /min DR TU DE ANDA MD [facility] 09-26-2023 19:34-0400 Systolic Blood Pressure Non-Invasive 143 mm[Hg] DR TU DE ANDA MD [facility] 09-13-2023 13:31-0400 Body height 165.1 cm Louis Valencia MD Work Phone: [facility] 09-13-2023 13:31-0400 Body weight 57.15 kg Louis Valencia MD Work Phone: [facility] 09-13-2023 13:31-0400 Respiratory rate 18 /min Louis Valencia MD Work Phone: [facility] 09-09-2023 15:05-0400 Body weight 57.15 kg Sam Erin DIETITIAN CONSULTANT.[employer] Work Phone: [facility] 09-09-2023 15:05-0400 Diastolic blood pressure 78 mm[Hg] Sam Erin DIETITIAN CONSULTANT.[employer] Work Phone: [facility] 09-09-2023 15:05-0400 Heart rate 78 /min Sam Erin DIETITIAN CONSULTANT.EVP [employer] Work Phone: [facility] 09-09-2023 15:05-0400 Respiratory rate 16 /min Sam Erin DIETITIAN CONSULTANT.[employer] Work Phone: [facility] 09-09-2023 15:05-0400 Systolic blood pressure 124 mm[Hg] Sam Erin DIETITIAN CONSULTANT.[employer] Work Phone: [facility] 08-18-2023 09:17-0500 Body height 165.1 cm [facility] [address] [facility] 08-18-2023 09:17-0500 Body temperature 98.6 [degF] Pst 1 [facility] 08-18-2023 09:17-0500 Body weight 55.34 kg [address] [facility] 08-18-2023 09:17-0500 Diastolic blood pressure 60 mm[Hg] Pst [address] [facility] 08-18-2023 09:17-0500 Heart rate 92 /min Pst [address] [facility] 08-18-2023 09:17-0500 Respiratory rate 16 /min Pst 1 [facility] 08-18-2023 09:17-0500 SaO2% (BldA) [Mass fraction] 98 % Pst [address] [facility] 08-18-2023 09:17-0500 Systolic blood pressure 124 mm[Hg] Pst [address] [facility] 08-11-2023 08:06-0500 Body temperature 99.5 [degF] Pennie Praisler-Wood DIETITIAN CONSULTANT.[employer] Work Phone: [facility] 08-11-2023 08:06-0500 Body weight 56.25 kg Pennie Praisler-Wood DIETITIAN CONSULTANT.[employer] Work Phone: [facility] 08-11-2023 08:06-0500 Diastolic blood pressure 83 mm[Hg] Pennie Praisler-Wood DIETITIAN CONSULTANT.[employer] Work Phone: [facility] 08-11-2023 08:06-0500 Heart rate 107 /min Pennie Praisler-Wood DIETITIAN CONSULTANT.[employer] Work Phone: [facility] 08-11-2023 08:06-0500 Respiratory rate 22 /min Pennie Praisler-Wood DIETITIAN CONSULTANT.[employer] Work Phone: [facility] 08-11-2023 08:06-0500 SaO2% (BldA) [Mass fraction] 97 % Pennie Praisler-Wood DIETITIAN CONSULTANT.[employer] Work Phone: [facility] 08-11-2023 08:06-0500 Systolic blood pressure 127 mm[Hg] Penine Praisler-Wood DIETITIAN CONSULTANT.[employer] Work Phone: [facility] 08-09-2023 12:57-0500 Body height 165.1 cm Louis Valencia MD Work Phone: [facility] 08-09-2023 12:57-0500 Body weight 57.15 kg Louis Valencia MD Work Phone: [facility] 08-09-2023 12:57-0500 Respiratory rate 16 /min Louis Valencia MD Work Phone: [facility] 08-05-2023 13:35-0500 Body height 165.1 cm Sam Erin DIETITIAN CONSULTANT.[employer] Work Phone: [facility] 08-05-2023 13:35-0500 Body weight 57.38 kg Sam Erin DIETITIAN CONSULTANT.[employer] Work Phone: [facility] 08-05-2023 13:35-0500 Diastolic blood pressure 72 mm[Hg] Sam Erin DIETITIAN CONSULTANT.[employer] Work Phone: [facility] 08-05-2023 13:35-0500 Respiratory rate 16 /min Sam Erin DIETITIAN CONSULTANT.[employer] Work Phone: [facility] 08-05-2023 13:35-0500 Systolic blood pressure 118 mm[Hg] Sam Erin DIETITIAN CONSULTANT.[employer] Work Phone: [facility] 08-01-2023 08:19-0500 Body temperature 97.5 [degF] Krislyn Aberegg PA Work Phone: [facility] 08-01-2023 08:19-0500 Body weight 59.88 kg Krislyn Aberegg PA Work Phone: [facility] 08-01-2023 08:19-0500 Diastolic blood pressure 86 mm[Hg] Krislyn Aberegg PA Work Phone: [facility] 08-01-2023 08:19-0500 Heart rate 69 /min Krislyn Aberegg PA Work Phone: [facility] 08-01-2023 08:19-0500 Respiratory rate 20 /min Krislyn Aberegg PA Work Phone: [facility] 08-01-2023 08:19-0500 SaO2% (BldA) [Mass fraction] 99 % Chris NASH Work Phone: [facility] 08-01-2023 08:19-0500 Systolic blood pressure 133 mm[Hg] Chris NASH Work Phone: [facility] 06-16-2023 09:19-0500 Body height 165.1 cm Antonio Rios MD Work Phone: [facility] 06-16-2023 09:19-0500 Body weight 56.7 kg Antonio Rios MD Work Phone: [facility] 05-12-2023 09:22-0500 Heart rate 68 /min Charles Prebish DIETITIAN CONSULTANT.[employer] Work Phone: [facility] 05-12-2023 09:22-0500 Respiratory rate 16 /min Charles Prebish DIETITIAN CONSULTANT.[employer] Work Phone: [facility] 05-12-2023 09:22-0500 SaO2% (BldA) [Mass fraction] 100 % Charles Prebish DIETITIAN CONSULTANT.[employer] Work Phone: [facility] 04-30-2023 09:39-0400 Body weight 57.61 kg Rick Queen MD Work Phone: [facility] 04-30-2023 09:39-0400 Diastolic blood pressure 85 mm[Hg] Rick Queen MD Work Phone: [facility] [facility] 04-30-2023 09:39-0400 Heart rate 147 /min Rick Queen MD Work Phone: [facility] 04-30-2023 09:39-0400 Respiratory rate 18 /min Rick Queen MD Work Phone: [facility] 04-30-2023 09:39-0400 Systolic blood pressure 124 mm[Hg] Rick Queen MD Work Phone: [facility] 04-30-2023 09:00-0400 Body temperature 97.81 [degF] Anny Older DIETITIAN CONSULTANT.EVP [employer] Work Phone: [facility] 04-30-2023 09:00-0400 Diastolic blood pressure 84 mm[Hg] Anny Older DIETITIAN CONSULTANT.EVP [employer] Work Phone: [facility] 04-30-2023 09:00-0400 Heart rate 149 /min Anny Older DIETITIAN CONSULTANT.EVP [employer] Work Phone: [facility] 04-30-2023 09:00-0400 Respiratory rate 20 /min Anny Older DIETITIAN CONSULTANT.EVP [employer] Work Phone: [facility] 04-30-2023 09:00-0400 SaO2% (BldA) [Mass fraction] 99 % Anny Older DIETITIAN CONSULTANT.EVP [employer] Work Phone: [facility] 04-30-2023 09:00-0400 Systolic blood pressure 117 mm[Hg] Anny Older DIETITIAN CONSULTANT.EVP [employer] Work Phone: [facility] 04-25-2023 15:02-0400 Body weight 58.06 kg Sam Erin DIETITIAN CONSULTANT.EVP [employer] Work Phone: [facility] 04-25-2023 15:02-0400 Diastolic blood pressure 80 mm[Hg] Sam Erin DIETITIAN CONSULTANT.EVP [employer] Work Phone: [facility] 04-25-2023 15:02-0400 Heart rate 119 /min Sam Erin DIETITIAN CONSULTANT.EVP [employer] Work Phone: [facility] 04-25-2023 15:02-0400 SaO2% (BldA) [Mass fraction] 98 % Sam Erin DIETITIAN CONSULTANT.EVP [employer] Work Phone: [facility] 04-25-2023 15:02-0400 Systolic blood pressure 110 mm[Hg] Sam Erin DIETITIAN CONSULTANT.EVP [employer] Work Phone: [facility] 03-15-2023 09:57-0400 Body height 165.[address] LAVONNE WEAVER MD [facility] 03-15-2023 09:57-0400 Body temperature 98.42 [degF] DR LAVONNE WEAVER MD [facility] 03-15-2023 09:57-0400 Body weight 56.[address] LAVONNE WEAVER MD [facility] 03-15-2023 09:57-0400 Diastolic Blood Pressure Non-Invasive [address] LAVONNE WEAVER MD [facility] 03-15-2023 09:57-0400 Heart rate 117 /min DR LAVONNE WEAVER MD [facility] 03-15-2023 09:57-0400 Respiratory rate 20 /min DR LAVONNE WEAVER MD [facility] 03-15-2023 09:57-0400 Systolic Blood Pressure Non-Invasive [address] LAVONNE WEAVER MD [facility] 02-08-2023 12:04-0400 Body weight 58.06 kg Sam Erin DIETITIAN CONSULTANT.EVP [employer] Work Phone: [facility] 02-08-2023 12:04-0400 Diastolic blood pressure 80 mm[Hg] Sam Erin DIETITIAN CONSULTANT.EVP [employer] Work Phone: [facility] 02-08-2023 12:04-0400 Heart rate 103 /min Sam Erin DIETITIAN CONSULTANT.EVP [employer] Work Phone: [facility] 02-08-2023 12:04-0400 SaO2% (BldA) [Mass fraction] 99 % Sam Erin DIETITIAN CONSULTANT.EVP [employer] Work Phone: [facility] 02-08-2023 12:04-0400 Systolic blood pressure 102 mm[Hg] Sam Erin DIETITIAN CONSULTANT.EVP [employer] Work Phone: [facility] 01-25-2023 12:53-0400 Body temperature 98.06 [degF] JUAN MIGUEL MANLEY MD [facility] 01-25-2023 12:53-0400 Diastolic Blood Pressure Non-Invasive 84 1 JUAN MIGUEL MANLEY MD [facility] 01-25-2023 12:53-0400 Heart rate 112 /min JUAN MIGUEL MANLEY MD [facility] 01-25-2023 12:53-0400 Respiratory rate 18 /min JUAN MIGUEL MANLEY MD [facility] 01-25-2023 12:53-0400 Systolic Blood Pressure Non-Invasive 119 1 JUAN MIGUEL MANLEY MD [facility] 01-10-2023 15:22-0400 Body temperature 98.29 [degF] Maile Norman MD Work Phone: [facility] 01-10-2023 15:22-0400 Body weight 59.88 kg Maile Norman MD Work Phone: [facility] 01-10-2023 15:22-0400 Diastolic blood pressure 68 mm[Hg] Maile Norman MD Work Phone: [facility] 01-10-2023 15:22-0400 Heart rate 109 /min Maile Norman MD Work Phone: [facility] 01-10-2023 15:22-0400 Respiratory rate 18 /min Maile Norman MD Work Phone: [facility] 01-10-2023 15:22-0400 SaO2% (BldA) [Mass fraction] 98 % Maile Norman MD Work Phone: [facility] 01-10-2023 15:22-0400 Systolic blood pressure 132 mm[Hg] Maile Norman MD Work Phone: [facility] 12-01-2022 13:43-0400 Body weight 56.79 kg Gayla Ayala APRN.CNP Work Phone: [facility] 12-01-2022 13:43-0400 Diastolic blood pressure 74 mm[Hg] Gayla Podlogar DIETITIAN CONSULTANT.EVP [employer] Work Phone: [facility] 12-01-2022 13:43-0400 Heart rate 82 /min Gayla Podlogar DIETITIAN CONSULTANT.EVP [employer] Work Phone: [facility] 12-01-2022 13:43-0400 Respiratory rate 18 /min Gayla Podlogar DIETITIAN CONSULTANT.EVP [employer] Work Phone: [facility] 12-01-2022 13:43-0400 SaO2% (BldA) [Mass fraction] 99 % Gayla Podlogar DIETITIAN CONSULTANT.EVP [employer] Work Phone: [facility] 12-01-2022 13:43-0400 Systolic blood pressure 106 mm[Hg] Gayla Podlogar DIETITIAN CONSULTANT.EVP [employer] Work Phone: [facility] 09-09-2022 10:11-0400 Body temperature 97.59 [degF] Pennie Praisler-Wood DIETITIAN CONSULTANT.EVP [employer] Work Phone: [facility] 09-09-2022 10:11-0400 Body weight 58.15 kg Pennie Praisler-Wood DIETITIAN CONSULTANT.EVP [employer] Work Phone: [facility] 09-09-2022 10:11-0400 Diastolic blood pressure 78 mm[Hg] Pennie Praisler-Wood DIETITIAN CONSULTANT.EVP [employer] Work Phone: [facility] 09-09-2022 10:11-0400 Heart rate 96 /min Pennie Praisler-Wood DIETITIAN CONSULTANT.EVP [employer] Work Phone: [facility] 09-09-2022 10:11-0400 Respiratory rate 16 /min Pennie Praisler-Wood DIETITIAN CONSULTANT.EVP [employer] Work Phone: [facility] 09-09-2022 10:11-0400 SaO2% (BldA) [Mass fraction] 98 % Pennie Praisler-Wood DIETITIAN CONSULTANT.EVP [employer] Work Phone: [facility] 09-09-2022 10:11-0400 Systolic blood pressure 110 mm[Hg] Pennie Praisler-Wood DIETITIAN CONSULTANT.EVP [employer] Work Phone: [facility] 07-18-2022 11:13-0500 Body temperature 97.39 [degF] Kimberly Rodriguez APRN.EVP [employer] Work Phone: [facility] 07-18-2022 11:13-0500 Body weight 59.88 kg Kimberly Rodriguez APRN.EVP [employer] Work Phone: [facility] 07-18-2022 11:13-0500 Diastolic blood pressure 70 mm[Hg] Kimberly Rodriguez APRN.EVP [employer] Work Phone: [facility] 07-18-2022 11:13-0500 Heart rate 82 /min Kimberly Rodriguez APRN.EVP [employer] Work Phone: [facility] 07-18-2022 11:13-0500 Respiratory rate 16 /min Kimberly Rodriguez APRN.EVP [employer] Work Phone: [facility] 07-18-2022 11:13-0500 SaO2% (BldA) [Mass fraction] 99 % Kimberly Rodriguez APRN.EVP [employer] Work Phone: [facility] 07-18-2022 11:13-0500 Systolic blood pressure 122 mm[Hg] Kimberly Rodriguez APRN.EVP [employer] Work Phone: [facility] 05-25-2022 16:15-0500 Body height 165.1 cm Kuldeep Ellis MD Work Phone: [facility] 05-25-2022 16:15-0500 Body temperature 98.29 [degF] Kuldeep Ellis MD Work Phone: [facility] 05-25-2022 16:15-0500 Body weight 59.88 kg Kuldeep Ellis MD Work Phone: [facility] 05-25-2022 16:15-0500 Diastolic blood pressure 78 mm[Hg] Kuldeep Ellis MD Work Phone: [facility] 05-25-2022 16:15-0500 Heart rate 110 /min Kuldeep Ellis MD Work Phone: [facility] 05-25-2022 16:15-0500 SaO2% (BldA) [Mass fraction] 99 % Kuldeep Ellis MD Work Phone: [facility] 05-25-2022 16:15-0500 Systolic blood pressure 106 mm[Hg] Kuldeep Ellis MD Work Phone: [facility] 05-13-2022 12:36-0500 Body height 165.1 cm Kuldeep Ellis MD Work Phone: [facility] 05-13-2022 12:36-0500 Body temperature 98.01 [degF] Kuldeep Ellis MD Work Phone: [facility] 05-13-2022 12:36-0500 Body weight 57.61 kg Kuldeep Ellis MD Work Phone: [facility] 05-13-2022 12:36-0500 Diastolic blood pressure 70 mm[Hg] Kuldeep Ellis MD Work Phone: [facility] 05-13-2022 12:36-0500 Heart rate 110 /min Kuldeep Ellis MD Work Phone: [facility] 05-13-2022 12:36-0500 SaO2% (BldA) [Mass fraction] 100 % Kuldeep Ellis MD Work Phone: [facility] 05-13-2022 12:36-0500 Systolic blood pressure 112 mm[Hg] Kuldeep Ellis MD Work Phone: [facility] 05-07-2022 11:12-0500 Body height 165.1 cm Karen Gaspar DIETITIAN CONSULTANT.DESIGN SUPERVISOR Work Phone: [facility] 05-07-2022 11:12-0500 Body weight 56.25 kg Karen Gaspar DIETITIAN CONSULTANT.DESIGN SUPERVISOR Work Phone: [facility] 05-07-2022 11:12-0500 Diastolic blood pressure 62 mm[Hg] Karen Gaspar DIETITIAN CONSULTANT.DESIGN SUPERVISOR Work Phone: [facility] 05-07-2022 11:12-0500 Heart rate 99 /min Karen Gaspar DIETITIAN CONSULTANT.DESIGN SUPERVISOR Work Phone: [facility] 05-07-2022 11:12-0500 Respiratory rate 16 /min Karen Gaspar DIETITIAN CONSULTANT.DESIGN SUPERVISOR Work Phone: [facility] 05-07-2022 11:12-0500 SaO2% (BldA) [Mass fraction] 97 % Karen Gaspar DIETITIAN CONSULTANT.DESIGN SUPERVISOR Work Phone: [facility] 05-07-2022 11:12-0500 Systolic blood pressure 98 mm[Hg] Karen Gaspar DIETITIAN CONSULTANT.DESIGN SUPERVISOR Work Phone: [facility] 03-16-2022 08:14-0400 Body temperature 97.7 [degF] Pennie Praisler-Wood DIETITIAN CONSULTANT.EVP [employer] Work Phone: [facility] 03-16-2022 08:14-0400 Body weight 57.97 kg Pennie Praisler-Wood DIETITIAN CONSULTANT.EVP [employer] Work Phone: [facility] 03-16-2022 08:14-0400 Diastolic blood pressure 80 mm[Hg] Pennie Praisler-Wood DIETITIAN CONSULTANT.EVP [employer] Work Phone: [facility] 03-16-2022 08:14-0400 Heart rate 107 /min Pennie Praisler-Wood DIETITIAN CONSULTANT.EVP [employer] Work Phone: [facility] 03-16-2022 08:14-0400 Respiratory rate 18 /min Pennie Praisler-Wood DIETITIAN CONSULTANT.EVP [employer] Work Phone: [facility] 03-16-2022 08:14-0400 SaO2% (BldA) [Mass fraction] 96 % Pennie Praisler-Wood DIETITIAN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 Medicine [place] Comment on above: Tear of right rotato r cuff, unspecified tear extent, unspecified whether traumatic (Primary Dx); Tear of right glenoid labrum, subsequent encounter; S/P shoulder surgery; Post-op pain; Chronic right shoulder pain Start: 09-26-2023 End: 09-26-2023 Emergency department patient visit DR TU DE ANDA MD [facility] Start: 09-19-2023 End: 09-19-2023 ambulatory Claire Harrington AMF MECHANIC Work Phone: [facility] Comment on above: Bicipital tendinitis of right shoulder (Primary Dx) Start: 09-15-2023 Refill Maile escobar MD Work Phone: Internal Medicine [place] Comment on above: Refill Request Start: 09-13-2023 End: 09-13-2023 Patient encounter procedure Louis Valencia MD Work Phone: [facility] Comment on above: S/P right rotator cu ff repair (Primary Dx) Start: 09-13-2023 End: 09-13-2023 ambulatory MAILE NORMAN Facility:[facility] Start: 09-09-2023 End: 09-09-2023 Patient encounter procedure Sam Khan APRN.EVP [employer] Work Phone: [facility] Medicine [place] Comment on above: Post-op pain (Primar y Dx); Tear of right glenoid labrum, subsequent encounter; S/P shoulder surgery Start: 09-05-2023 Admission to [facility] Laura Tobar PA-C Work Phone: [facility] Comment on above: S/P shoulder surgery (Primary Dx) Start: 09-05-2023 End: 09-05-2023 ambulatory Yodit Baker PT [facility] Comment on above: Bicipital tendinitis of right shoulder (Primary Dx) Start: 09-02-2023 Refill Louis Valencia MD Work Phone: [facility] Start: 09-01-2023 Refill Louis Valencia MD Work Phone: [facility] Comment on above: Refill Request Start: 08-29-2023 End: 08-29-2023 ambulatory LOUIS VALENCIA Facility:[facility] Start: 08-28-2023 Admission to [facility] Sam Khan APRN.EVP [employer] Work Phone: Internal Medicine [place] Comment on above: Shoulder surgery Start: 08-28-2023 ambulatory Sam Khan APRN.CNP Work Phone: [facility] [place] Start: 08-23-2023 Telephone encounter Maile acuna MD Work Phone: Internal Medicine [place] Comment on above: FYI-No Action Needed Start: 08-18-2023 Encounter for other preprocedural examination CHARLES [facility] Start: 08-18-2023 End: 08-18-2023 Preprocedural examination done Pst [address] [facility] Work Phone: Start: 08-18-2023 End: 08-18-2023 PAT [facility] 1 Pre Surgical Testin g [...] 08-11-2023 Subsequent hospital visit by physician Xr [facility] [place] Work Phone: Radiology Comment on above: Acute cough [R05.1] Start: 08-11-2023 End: 08-11-2023 Patient encounter procedure Pennie Clemente APRN.CNP Work Phone: [facility] Comment on above: Acute cough (Primary Dx); Viral bronchitis Start: 08-10-2023 Orders Only Louis Valencia MD Work Phone: [facility] Comment on above: Bicipital tendinitis of right shoulder (Primary Dx) Start: 08-09-2023 End: 08-09-2023 Patient encounter procedure Louis Valencia MD Work Phone: [facility] Comment on above: Biceps tendinitis of right upper extremity (Primary Dx) Start: 08-09-2023 End: 08-09-2023 ambulatory MAILE NORMAN Facility:[facility] Start: 08-05-2023 End: 08-05-2023 Patient encounter [...] Maile escobar MD Work Phone: Internal Medicine [place] Comment on above: Refill Request Start: 05-14-2023 ambulatory [facility] [place] Comment on above: information from Dr Norman Start: 05-14-2023 E-mail encounter fro m caregiver [facility] Start: 05-13-2023 ambulatory Pcp (Historical) [facility] Start: 05-12-2023 End: 05-12-2023 Emergency department patient visit JUAN MIGUEL MANLEY MD Facility:B Start: 05-12-2023 Telephone encounter Charles shelton APRN.EVP [employer] Work Phone: [facility] Comment on above: Referral Information Refill Request Start: 05-12-2023 End: 05-12-2023 Office outpatient new 45 minutes Charles Elliott APRN.CNP Work Phone: [facility] Comment on above: Chronic right should er pain (Primary Dx); Labral tear of shoulder, degenerative, right Start: 05-12-2023 End: 05-12-2023 ambulatory [facility] Facility:[facility] Start: 05-04-2023 Telephone encounter Rick solo MD Work Phone: Internal Medicine [place] Comment on above: Results Start: 05-02-2023 Telephone encounter Keith Diaz PA-C Work Phone: [facility] Start: 04-30-2023 End: 04-30-2023 Patient encounter procedure Rick Queen MD Work Phone: Internal Medicine [place] Comment on above: Tachycardia (Primary Dx); Encounter for immunization; Need for influenza vaccination; Need for vaccination; Anxiety; Tobacco use disorder; Screening for cervical cancer Dysuria (Primary Dx) Start: 04-25-2023 End: 04-25-2023 Patient encounter procedure Sam Khan APRN.[employer] Work Phone: Internal Medicine [place] Comment on above: Acute cystitis with hematuria (Primary Dx); Tear of right glenoid labrum, subsequent encounter; Chronic right shoulder pain Start: 04-25-2023 Telephone encounter Maile acuna MD Work Phone: Internal Medicine [place] Comment on above: Medication Problem Start: 04-11-2023 E-mail encounter saniya m caregiver [facility] Provider LEYDA ROTH Start: 04-11-2023 Patient encounter procedure [facility] [place] Comment on above: 04/28/2023 appointissac mcneill Start: 03-30-2023 Telephone encounter Oksana Weldon APRN.[employer] Work Phone: [facility] Comment on above: Results Start: 03-30-2023 End: 03-30-2023 Subsequent hospital visit by physician Xr [facility] [place] Work Phone: Radiology Comment on above: Fever, unspecified f ever cause [R50.9] Start: 03-18-2023 Refill Maile escobar MD Work Phone: Internal Medicine [place] Comment on above: Refill Request Start: 03-15-2023 End: 03-15-2023 Emergency department patient visit DR LAVONNE WEAVER MD [facility] Start: 03-14-2023 ambulatory Sam Khan APRN.[employer] Work Phone: Internal Medicine [place] Comment on above: MRI Start: 03-14-2023 E-mail encounter fro m caregiver Sam Khan APRN.[employer] Work Phone: [facility] [place] Start: 03-11-2023 End: 03-11-2023 Subsequent hospital visit by physician Mri [facility] (I-Stat/1.5t) Work Phone: Radiology Comment on above: Tear of right glenoi d labrum, subsequent encounter [S43.431D] Start: 03-07-2023 Refill Maile escobar MD Work Phone: Internal Medicine [place] Comment on above: Refill Request Start: 03-04-2023 Telephone encounter Sam schulz APRN.[employer] Work Phone: Internal Medicine [place] Comment on above: Orders Start: 02-15-2023 ambulatory No Pcp RIGOBERTO Ryder slinkset Start: 02-09-2023 ambulatory Maile escobar MD Work Phone: [facility] Start: 02-08-2023 End: 02-08-2023 Patient encounter procedure Sam Khan APRN.[employer] Work Phone: Internal Medicine [place] Comment on above: Tear of right glenoi d labrum, subsequent encounter (Primary Dx); Chronic right shoulder pain Start: 01-25-2023 End: 01-25-2023 Emergency department patient visit JUAN MIGUEL MANLEY MD [facility] Start: 01-10-2023 End: 01-10-2023 Office outpatient visit 25 minutes Maile Norman MD Work Phone: Internal Medicine [place] Comment on above: Panic attacks Start: 01-10-2023 ambulatory Maile escobar MD Work Phone: Internal Medicine [place] Comment on above: Anxiety Start: 12-06-2022 Telephone encounter Gayla mora APRN.[employer] Work Phone: Family Medicine [place] Comment on above: Results Start: 12-01-2022 Telephone encounter Maile acuna MD Work Phone: Internal [facility] [place] Comment on above: Appointment Request Start: 12-01-2022 End: 12-01-2022 Subsequent hospital visit by physician Xr [facility] [place] Work Phone: Radiology Comment on above: Coccydynia [M53.3] Start: 12-01-2022 End: 12-01-2022 Patient encounter procedure Gayla Ayala APRN.[employer] Work Phone: [facility] [place] Comment on above: Coccydynia (Primary Dx) Start: 09-17-2022 Telephone encounter Maile acuna MD Work Phone: Internal Medicine [place] Comment on above: Anxiety Start: 09-09-2022 End: 09-09-2022 Patient encounter procedure Pennie Clemente APRN.[employer] Work Phone: [facility] Comment on above: Viral URI with cough (Primary Dx) Start: 09-08-2022 Telephone encounter Maile acuna MD Work Phone: Internal Medicine [place] Comment on above: Patient Update Start: 08-03-2022 Telephone encounter Maile acuna MD Work Phone: Internal Medicine [place] Comment on above: Medication Request Start: 07-18-2022 End: 07-18-2022 Patient encounter procedure Kimberly Rodriguez APRN.[employer] Work Phone: [facility] Comment on above: Sore throat [...] End: 05-07-2022 Patient encounter procedure Karen Gaspar APRN.DESIGN SUPERVISOR Work Phone: Internal Medicine [place] Comment on above: Insomnia, unspecifie d type (Primary Dx); Encounter for immunization; Screening for cervical cancer; Breast pain; Mass of lower inner quadrant of right breast; Chronic right shoulder pain; Encounter for well woman exam with routine gynecological exam Start: 04-20-2022 Refill Karen Gaspar APRN.DESIGN SUPERVISOR Work Phone: [facility] [place] Comment on above: Refill Request Start: 04-12-2022 [facility] Start: 03-16-2022 End: 03-16-2022 Subsequent hospital visit by physician Xr [facility] [place] Work Phone: Radiology Comment on above: Splinter of finger [ S60.457R] Start: 03-16-2022 End: 03-16-2022 Patient encounter procedure Pennie Clemente APRN.[employer] Work Phone: [facility] Comment on above: Splinter of finger ( Primary Dx) Start: 03-05-2022 Refill Maile escobar MD Work Phone: Internal Medicine [place] Comment on above: Refill Request Start: 03-03-2022 ambulatory Maile escobar MD Work Phone: Internal [facility] Start: 01-20-2022 End: 01-20-2022 Patient encounter procedure Galo Bernal DIETITIAN CONSULTANT.[employer] Work Phone: [facility] Comment on above: Viral illness (Prima ry Dx) Start: 01-05-2022 End: 01-05-2022 Patient encounter procedure Galo Bernal DIETITIAN CONSULTANT.[employer] Work Phone: [facility] Comment on above: Procedure not billy d out (Primary Dx) Start: 12-18-2021 Telephone encounter Maile acuna MD Work Phone: Internal Medicine [place] Comment on above: ABO Blood Type Start: 07-18-2021 End: 07-18-2021 Emergency department patient visit Boubacar Ferrell MD Work Phone: [facility] Comment on above: Jaw pain (Primary Dx ); History of tooth extraction, unspecified edentulism class Start: 03-09-2021 End: 03-09-2021 Subsequent hospital visit by physician [facility] [place] Work Phone: Radiology Comment [...] Radex hand minimum 3 views Galo butt DIETITIAN CONSULTANT.[employer] Work Phone: Start: 05-10-2024 Radex forearm 2 views Karen Gaspar DIETITIAN CONSULTANT.DESIGN SUPERVISOR Work Phone: Start: 03-07-2024 Radiologic exam chest 2 views Sam Khan DIETITIAN CONSULTANT.[employer] Work Phone: Start: 02-07-2024 Arthrocentesis aspir&/inj major jt/bursa w/o us Louis Valencia MD Work Phone: Start: 08-11-2023 Radiologic exam chest 2 views Pennie Clemente DIETITIAN CONSULTANT.[employer] Work Phone: Start: 08-11-2023 STREP A MOLECULAR (POC) [facility] Provider Start: 08-01-2023 INFLUENZA A&B MOLECULAR (POC) Chris NASH Work Phone: Start: 04-30-2023 INFLUENZA VACCINE, AGE 6 MO - 64 YR, QUADRIVALENT (AFLURIA, FLULAVAL, FLUZONE) Rick Queen MD Work Phone: Start: 04-30-2023 Urnls dip stick/tablet rgnt auto w/o microscopy Anny Older DIETITIAN CONSULTANT.[employer] Work Phone: Start: 04-25-2023 Urnls dip stick/tablet rgnt auto w/o microscopy Sam Verduzcor DIETITIAN CONSULTANT.[employer] Work Phone: Start: 03-30-2023 Radiologic exam chest 2 views Oksana Weldon DIETITIAN CONSULTANT.[employer] Work Phone: Start: 03-11-2023 Mri any jt upper extremity w/o & w/contr matrl Sam Khan DIETITIAN CONSULTANT.[employer] Work Phone: Start: 12-01-2022 Radex sacrum & coccyx minimum 2 views Gayla Podlogaretha DIETITIAN CONSULTANT.[employer] Work Phone: Start: 07-18-2022 STREP A MOLECULAR (POC) Kimberly Rodriguez DIETITIAN CONSULTANT.[employer] Work Phone: Start: 03-16-2022 Radex fingr minimum 2 views Pennie Austin DIETITIAN CONSULTANT.[employer] Work Phone: Start: 07-18-2021 End: 07-18-2021 Ct head/brain w/o contrast material Boubacar Ferrell MD Work Phone: Start: 07-18-2021 Basic metabolic panel calcium total Boubacar Marcos Ferrell MD Work Phone: Start: 03-09-2021 Radiologic exam chest 2 views Yodit Saxena DIETITIAN CONSULTANT.[employer] Work Phone: Adenoid excision JUAN MIGUEL VALERIO [...] DTaP,Tdap,Td Vaccine (3 - Td or Tdap) [facility] Start: 03-15-2032 Urine microalbumin profile [facility] Start: 07-09-2029 Screening for malign ant neoplasm of cervix Cervical Cancer Screening [facility] Start: 09-21-2025 Annual PCP Team Group Fitness Assistant Department [facility] [place] Disease Visit Annual PCP Team Chronic Disease Visit [facility] Start: 07-31-2025 Annual PCP Team Group Fitness Assistant Department [facility] [place] Disease Visit Annual PCP Team Chronic Disease Visit [facility] Start: 07-31-2025 Hepatitis B Vaccine (2 of 3 - Hep B Twinrix 3-dose series) Hepatitis B Vaccine (2 of 3 - Hep B Twinrix 3-dose series) [facility] Comment on above: Postponed from 05/19 (Declined at this time) Start: 07-11-2025 Annual PCP Team Group Fitness Assistant Department [facility] [place] Disease Visit Annual PCP Team Chronic Disease Visit [facility] Start: 05-15-2025 Annual PCP Team Group Fitness Assistant Department [facility] [place] Disease Visit Annual PCP Team Chronic Disease Visit [facility] Start: 04-25-2025 Annual PCP Team Group Fitness Assistant Department [facility] [place] Disease Visit Annual PCP Team Chronic Disease Visit [facility] Start: 03-28-2025 Annual PCP Team Group Fitness Assistant Department [facility] [place] Disease Visit Annual PCP Team Chronic Disease Visit [facility] Start: 03-28-2025 Covid-19 Vaccine ( season) Covid-19 Vaccine ( season) [facility] Comment on above: Postponed from 02/25 (Declined at this time) Start: 02-27-2025 Annual PCP Team Group Fitness Assistant Department [facility] [place] [facility] Visit Annual PCP Team Chronic Disease Visit [facility] Start: 02-25-2025 Influenza vaccination Influenz a Vaccine (Season Ended) [facility] Start: 02-04-2025 End: 02-04-2025 Patient encounter procedure 02/04/2025 4:40 PM EDT Office Visit [facility] [place] [address] [facility] [place] [address] Maile Norman MD [address] [place] [address] 3 month follow up [facility] [place] Comment on above: 3 month follow up Start: 01-24-2025 Annual PCP Team Group Fitness Assistant Department [facility] [place] Disease Visit Annual PCP Team Chronic Disease Visit [facility] Start: 01-10-2025 Annual PCP Team Group Fitness Assistant Department [facility] [place] Disease Visit Annual PCP Team Chronic Disease Visit [facility] Start: 01-04-2025 End: 01-04-2025 Patient encounter procedure 01/04/2025 1:15 PM EDT Office Visit Orthopedics [address] [facility] [address] [place] [address] Louis Valencia MD [address] [facility] [facility] [address] [place] [address] right shoulder Orthopedics Comment on above: right shoulder Start: 01-03-2025 End: 01-03-2025 Patient encounter procedure 01/03/2025 8:30 AM EDT Office Visit [facility] [address] [place] [address] Charles Elliott APRN.[facility] [address] [place] [address] S/P shoulder surgery [Z98.890]; Traumatic tear of right rotator cuff, unspecified tear extent, subsequent encounter [S46.011D]; Acute pain of right shoulder [M25.511] [facility] Comment on above: S/P shoulder surgery [Z98.890]; Traumatic tear of right rotator cuff, unspecified tear extent, subsequent encounter [S46.011D]; Acute pain of right shoulder [M25.511] Start: 12-24-2024 Influenza vaccination Influenza Vacc ine (#1) [facility] Comment on above: Postponed from 02/25 (Declined at this time) Start: 12-24-2024 End: 12-24-2024 ambulatory 12/24/2024 10:45 AM EDT OT/PT/Speech Visit [facility] [address] [place] [address] Kofi Gannon, PT Z98.890 (ICD-10-CM) - S/P right rotator cuff repair [facility] Comment on above: Z98.890 (ICD-10-CM) - S/P right rotator cuff repair Start: 12-19-2024 Annual PCP Team Group Fitness Assistant Department [facility] [place] Disease Visit Annual PCP Team Chronic Disease Visit [facility] Start: 12-17-2024 End: 12-17-2024 ambulatory 12/17/2024 10:15 AM EDT OT/PT/Speech Visit [facility] [address] [place] [address] Calire Harrington, AMF MECHANIC [address] [place] [address] Z98.890 (ICD-10-CM) - S/P right rotator cuff repair [facility] Comment on above: Z98.890 (ICD-10-CM) - S/P right rotator cuff repair Start: 12-10-2024 End: 12-10-2024 ambulatory 12/10/2024 9:45 AM EDT OT/PT/Speech Visit [facility] [address] [place] [address] Kofi Gannon, PT Z98.890 (ICD-10-CM) - S/P right rotator cuff repair [facility] Comment on above: Z98.890 (ICD-10-CM) - S/P right rotator cuff repair Start: 12-03-2024 End: 12-03-2024 ambulatory 12/03/2024 9:30 AM EDT OT/PT/Speech Visit [facility] [address] [place] [address] Claire Harrington, AMF MECHANIC [address] [place] [address] Z98.890 (ICD-10-CM) - S/P right rotator cuff repair [facility] Comment on above: Z98.890 (ICD-10-CM) - S/P right rotator cuff repair Start: 11-30-2024 End: 11-30-2024 Patient encounter procedure 11/30/2024 8:00 AM EDT Office Visit Internal Medicine [place] [address] [place] [address] Sam Khan APRN.[employer] [address] [place] [address] 2 wk follow up Internal Medicine [place] Comment on above: 2 wk follow up Start: 11-28-2024 End: 11-28-2024 Patient encounter procedure 11/28/2024 11:40 AM EDT Office Visit Internal Medicine [place] [address] [place] [place] [address] Sam Khan APRN.[employer] [address] [facility] [place] [address] 2 wk follow up Internal Medicine [place] Comment on above: 2 wk follow up Start: 11-26-2024 End: 11-26-2024 ambulatory 11/26/2024 9:00 AM EDT OT/PT/Speech Visit [facility] [address] [place] [address] Kofi Gannon, PT Post Op PT [facility] Comment on above: Post Op PT Start: 11-23-2024 End: 11-23-2024 Patient encounter procedure 11/23/2024 2:15 PM EDT Office Visit Orthopedics [address] [facility] [address] [place] [phone] Louis Valencia MD [address] [facility]. [facility] [address] [place] [address] S/P Right shoulder Dx arthroscopy 10-12-2024 Orthopedics Comment on above: S/P Right shoulder D x arthroscopy 10-12-2024 Start: 11-14-2024 End: 11-14-2024 ambulatory 11/14/2024 9:00 AM EDT OT/PT/Speech Visit [facility] [address] [place] [address] Jono Gallego, PT [address] [place] [address] Post Op PT [facility] Comment on above: Post Op PT Start: 11-10-2024 Annual PCP Team Group Fitness Assistant Department [facility] [place] Disease Visit Annual PCP Team Chronic Disease Visit [facility] Start: 11-02-2024 End: 11-02-2024 Patient encounter procedure [facility] [place] Comment on above: 3 month follow up Start: 10-26-2024 End: 10-26-2024 Patient encounter procedure 10/26/2024 3:00 PM EDT Office Visit Orthopedics [address] [facility] [address] [place] [phone] Louis Valencia MD [address] [facility]. [facility] [address] [place] [address] S/P Right shoulder Dx arthroscopy 10-12-2024 Orthopedics Comment on above: S/P Right shoulder D x arthroscopy 10-12-2024 Start: 10-19-2024 End: 10-19-2024 ambulatory 10/19/2024 9:30 AM EDT OT/PT/Speech Visit [facility] [address] [place] [address] Jono Gallego, PT [address] [place] [address] Post Op PT [facility] Comment on above: Post Op PT Start: 10-19-2024 End: 10-19-2024 Patient encounter procedure 10/19/2024 9:20 AM EDT Office Visit [facility] [place] [address] [place] [address] Maile Norman MD [address] [place] [address] Pain management after surgery. 2nd rotator cuff surgery. [facility] [place] Comment on above: Pain management afte r surgery. 2nd rotator cuff surgery. Start: 10-13-2024 Annual PCP Team Group Fitness Assistant Department [facility] [place] Disease Visit Annual PCP Team Chronic Disease Visit [facility] Start: 10-12-2024 End: 10-12-2024 Admission to same day surgery center 10/12/2024 10:50 AM EDT - 10/12/2024 12:31 PM EDT Surgery [facility] Surgery [address] [place] [address] Louis Valencia MD [address] [place] [place] [address] ARTHROSCOPY SHOULDER [facility] Surgery Comment on above: ARTHROSCOPY SHOULDER Start: 10-12-2024 End: 10-12-2024 Arthroscopy shoulder dx w/wo synovial biopsy spx ARTHROSCOPY SHOULDER S/P right rotator cuff repair Right shoulder pain, unspecified chronicity 10/12/2024 10:50 AM EDT ME OR Start: 10-12-2024 Subsequent hospital visit by physician 10/12/2024 10:50 AM EDT Hospital Encounter [facility] Surgery [address] [place] [address] Louis Valencia MD [address] [place] [address] S/P right rotator cuff repair [Z98.890], Right shoulder pain, unspecified chronicity [M25.511] [facility] Surgery Comment on above: S/P right rotator cu ff repair [Z98.890], Right shoulder pain, unspecified chronicity [M25.511] Start: 09-28-2024 End: 09-28-2024 Anesthesia consultation 09/28/2024 9:20 AM EDT PAT Pre Anesthesia [address] [place] [address] 1, Pacc [place] [address] [place] [address] 10/12 DECLINED VV ARTHROSCOPY SHOULDER [1111] - Shoulder - Right Pre Anesthesia Comment on above: 10/12 DECLINED VV ART HROSCOPY SHOULDER [1111] - Shoulder - Right Start: 09-26-2024 Annual PCP Team Group Fitness Assistant Department [facility] [place] Disease Visit Annual PCP Team Chronic Disease Visit [facility] Start: 09-14-2024 End: 09-14-2024 Patient encounter procedure 09/14/2024 1:45 PM EDT Office Visit Orthopedics [address] [place] [phone] Louis Valencia MD [address] [facility] [address] [place], [place] [id number] 6 week follow up Orthopedics Comment on above: 6 week follow up Start: 09-08-2024 Annual PCP Team Group Fitness Assistant Department [facility] [place] Disease Visit Annual PCP Team Chronic Disease Visit [facility] Start: 09-08-2024 Covid-19 Vaccine () Covid-19 Vaccine () [facility] Comment on above: Postponed from 02/25 (Declined at this time) Start: 08-05-2024 Annual PCP Team Group Fitness Assistant Department [facility] [place] Disease Visit Annual PCP Team Chronic Disease Visit [facility] Start: 07-31-2024 End: 07-31-2024 Patient encounter procedure 07/31/2024 10:00 AM EST Office Visit Internal Medicine [place] [address] [place] [address] Maile Norman MD [address] [place] [address] 3 month follow up Internal Medicine [place] Comment on above: 3 month follow up Start: 07-27-2024 End: 07-27-2024 Patient encounter procedure 07/27/2024 2:15 PM EST Office Visit Orthopedics [address] [place] [phone] Louis Valencia MD [address] [facility] [address] [place], [place] [phone] injection, MRI results Orthopedics Comment on above: injection, MRI resul ts Start: 07-13-2024 End: 10-12-2024 Comprehensive metabolic 2000 panel - Serum or Plasma [facility] Work Phone: Comment on above: Expected: 07/13/2024 , Expires: 10/12/2024 Start: 07-09-2024 End: 10-08-2024 Estradiol (E2) [Mass/volume] in Serum or Plasma ESTRADIOL-17B BLD Lab Routine Menopausal symptoms Expected: 07/09/2024, Expires: 10/08/[address] [facility] Comment on above: Expected: 07/09/2024 , Expires: 10/08/2024 Start: 07-09-2024 End: 10-08-2024 Follitropin [Units/volume] in Serum or Plasma FOLLICLE STIMULATING HORMONE Lab Routine Menopausal symptoms Expected: 07/09/2024, Expires: 10/08/[address] [facility] Comment on above: Expected: 07/09/2024 , Expires: 10/08/2024 Start: 07-09-2024 End: 07-09-2024 Patient encounter procedure 07/09/2024 9:50 AM EST Appointment Mammogram [address] [place] [address] KEYON SCREENING W TERESITA Mammogram Comment on above: KEYON SCREENING W TERESITA Start: 07-09-2024 End: 07-09-2024 Patient encounter procedure 07/09/2024 7:30 AM EST Office Visit OB/Gynecology [address] [place] [address] Cecile Herndon APRN.[employer] [address] [place] [address] Annual, Pap, Interested in pre menopause info OB/Gynecology Comment on above: Annual, Pap, Interes hira in pre menopause info Start: 06-19-2024 End: 06-19-2024 Patient encounter procedure 06/19/2024 7:30 AM EST Appointment Radiology [address] [place] [address] S/P right rotator cuff repair [Z98.890] Radiology Comment on above: S/P right rotator cu ff repair [Z98.890] Start: 06-06-2024 End: 06-06-2024 Patient encounter procedure 06/06/2024 8:30 AM EST Office Visit General Surgery [address] [address] John Maher MD [address] [place], [place] [address] Dx: Injury of left upper extremity, subsequent encounter [S49.92XD (ICD-10-CM)]; Mass of left upper extremity [R22.32 (ICD-10-CM)] General Surgery Comment on above: Dx: Injury of left u pper extremity, subsequent encounter [S49.92XD (ICD-10-CM)]; Mass of left upper extremity [R22.32 (ICD-10-CM)] Start: 05-21-2024 End: 05-21-2024 Patient encounter procedure 05/21/2024 9:40 AM EST Office Visit Internal Medicine [place] [address] [place], [place] [phone] Anny Carter DIETITIAN CONSULTANT.[employer] [address] [place], [place] [phone] follow-up - blister on right hand Internal Medicine [place] Comment on above: follow-up - blister on right hand Start: 05-11-2024 End: 08-10-2024 Herpes simplex virus+Varicella zoster virus DNA [Presence] in Unspecified specimen by MARY KAY with probe detection HSV1,2/VZV NAAT LESION Lab Routine Rash Expected: 05/11/2024, Expires: 08/10/2024 [facility] Work Phone: Comment on above: Expected: 05/11/2024 , Expires: 08/10/2024 Start: 04-25-2024 End: 04-25-2024 Patient encounter procedure 04/25/2024 1:00 PM EDT Office Visit Internal Medicine [place] [address] [place], [place] [phone] Sam Khan DIETITIAN CONSULTANT.EVP [employer] EXPERIENCE [employer]ATE[employer] [address], [place] [phone] 4 week follow up post suture removel left arm [facility] Comment on above: 4 week follow up pos t suture removel left arm Start: 02-28-2024 End: 05-29-2024 CBC W Auto Differential panel - Blood [facility] Work Phone: Comment on above: Expected: 02/28/2024 , Expires: 05/29/2024 Start: 02-28-2024 End: 05-29-2024 Comprehensive metabolic 2000 panel - Serum or Plasma [facility] Comment on above: Expected: 02/28/2024 , Expires: 05/29/2024 Start: 02-28-2024 End: 05-29-2024 Hepatitis C virus Ab [Presence] in Serum [facility] Comment on above: Expected: 02/28/2024 , Expires: 05/29/2024 Start: 02-28-2024 End: 05-29-2024 HIV 1+2 Ab [Presence] in Serum or Plasma by Immunoassay [facility] Comment on above: Expected: 02/28/2024 , Expires: 05/29/2024 Start: 02-26-2024 Covid-19 Vaccine ( season) Covid-19 Vaccine ( season) [facility] Start: 02-26-2024 Covid-19 Vaccine ( season) Covid-19 Vaccine ( season) [facility] Start: 02-26-2024 Influenza vaccination Influenza Vacc ine (#1) [facility] Start: 02-07-2024 End: 02-07-2024 Patient encounter procedure 02/07/2024 3:15 PM EDT Office Visit [facility] [address] [place], [place] [id number] Louis Valencia MD [address] [place] [address] est pt post op left shoulder [facility] Comment on above: est pt post op left shoulder Start: 01-25-2024 End: 01-25-2024 Patient encounter procedure 01/25/2024 3:00 PM EDT Office Visit [facility] [address] [place] [address] Sam Khan APRN.EVP [employer] [address] [place] [phone] 2 wk follow up [facility] Comment on above: 2 wk follow up Start: 01-11-2024 COVID-19 VACCINE (#1) COVID-19 VACCI NE (#1) [facility] Comment on above: Postponed from 07/25 (Declined at this time) Start: 01-10-2024 End: 01-10-2024 Patient encounter procedure 01/10/2024 8:40 AM EDT Office Visit [facility] [address] [place], [place] [phone] Sam Khan APRN.[employer] [address] [place] [phone] 3 week medication follow up [facility] Comment on above: 3 week medication fo llow up Start: 12-20-2023 End: 12-20-2023 Patient encounter procedure 12/20/2023 8:00 AM EDT Office Visit [facility] [address] [place] [address] Sam Khan APRN.[employer] [address] [place] [phone] med check [facility] Comment on above: med check Start: 12-14-2023 End: 12-14-2023 Patient encounter procedure 12/14/2023 2:40 PM EDT Office Visit [facility] [address] [place], [place] [id number] Sam Khan APRN.[employer] [address] [place] [phone] Review pain medication [facility] Comment on above: Review pain medicati on Start: 12-14-2023 End: 12-14-2023 ambulatory 12/14/2023 1:30 PM EDT OT/PT/Speech Visit [facility] [address] [place] [address] O'Yodti Robin, PT right shoulder post op [facility] Comment on above: right shoulder post op Start: 12-07-2023 End: 12-07-2023 ambulatory 12/07/2023 12:45 PM EDT OT/PT/Speech Visit [facility] [address] [place] [address] O'LobitoYodit, PT right shoulder post op [facility] Comment on above: right shoulder post op Start: 11-30-2023 End: 11-30-2023 ambulatory 11/30/2023 12:45 PM EDT OT/PT/Speech Visit [facility] [address] [place] [address] O'LobitoYodit jack, PT right shoulder post op [facility] Comment on above: right shoulder post op Start: 11-24-2023 End: 11-24-2023 ambulatory 11/24/2023 9:30 AM EDT OT/PT/Speech Visit [facility] [address] [place] [address] O'LobitoYodit jack, PT right shoulder post op [facility] Comment on above: right shoulder post op Start: 11-22-2023 End: 11-22-2023 Patient encounter procedure 11/22/2023 1:15 PM EDT Office Visit [facility] [address] [place] [address] Louis Valencia MD [address] [place] [address] RIGHT SHOULDER [facility] Comment on above: RIGHT SHOULDER Start: 11-16-2023 End: 11-16-2023 ambulatory 11/16/2023 12:45 PM EDT OT/PT/Speech Visit [facility] [address] [place] [address] O'Yodit Robin, PT right shoulder post op [facility] Comment on above: right shoulder post op Start: 11-11-2023 End: 11-11-2023 Patient encounter procedure 11/11/2023 10:20 AM EDT Office Visit [facility] [place] [facility] [address] [place] [address] Sam Khan APRN.[employer]P [employer] [address] [place], [place] [id number] Review pain medication [facility] Comment on above: Review pain medicati on Start: 11-09-2023 End: 11-09-2023 ambulatory 11/09/2023 1:30 PM EDT OT/PT/Speech Visit [facility] [address] [place], [place] [address] O'Yodit Robin, PT right shoulder post op [facility] Comment on above: right shoulder post op Start: 10-25-2023 End: 10-25-2023 ambulatory 10/25/2023 11:15 AM EDT OT/PT/Speech Visit [facility] [address] [place] [address] Mya'Yodit Robin, PT [facility] Comment on above: [place] Start: 02-25-2023 Covid-19 Vaccine ( season) Covid-19 Vaccine ( season) [facility] Start: 02-25-2023 Influenza vaccination [facility] Start: 12-24-2022 Influenza vaccination INFLUENZA (#1) [facility] Comment on above: Postponed from 02/25 (Declined at this time) Start: 09-28-2022 HPV TESTING HPV TESTING [facility] Start: 09-28-2022 PAP TESTING PAP TESTING [facility] Start: 09-28-2022 Screening for malign ant neoplasm of cervix [facility] Start: 07-18-2022 End: 08-01-2022 Influenza virus A and B RNA and SARS-CoV-2 (COVID-19) N gene panel - Respiratory specimen by MARY KAY with probe detection COVID WITH FLUA+B, ROUTINE Microbiology Routine URI, acute Expected: 07/18/2022, Expires: 08/01/2022 [facility] Work Phone: Comment on above: Expected: 07/18/2022 , Expires: 08/01/2022 Start: 05-12-2022 COVID-19 VACCINE (#1) COVID-19 VACCI NE (#1) [facility] Comment on above: Postponed from 01/22 (Declined at this time) Postponed from 07/25 (Declined at this time) Start: 05-12-2022 PNEUMOCOCCAL (1 - PCV) PNEUMOCOCCAL (1 - PCV) [facility] Comment on above: Postponed from 01/22 (Declined at this time) Start: 05-07-2022 End: 07-07-2022 CBC W Auto Differential panel - Blood CBC + DIFF Lab Routine Insomnia, unspecified type Expected: 05/07/2022, Expires: 07/07/2022 [facility] Work Phone: Comment on above: Expected: 05/07/2022 , Expires: 07/07/2022 Start: 05-07-2022 End: 07-07-2022 Comprehensive metabolic 2000 panel - Serum or Plasma COMP METABOLIC PANEL Lab Routine Insomnia, unspecified type Expected: 05/07/2022, Expires: 07/07/2022 [facility] Work Phone: Comment on above: Expected: 05/07/2022 , Expires: 07/07/2022 Start: 03-05-2022 End: 05-05-2022 CBC panel - Blood by Automated count CBC Lab Routine Encounter for long-term current use of medication Expected: 03/05/2022, Expires: 05/05/2022 [facility] Work Phone: Comment on above: Expected: 03/05/2022 , Expires: 05/05/2022 Start: 03-05-2022 End: 05-05-2022 Comprehensive metabolic 2000 panel - Serum or Plasma COMP METABOLIC PANEL Lab Routine Encounter for long-term current use of medication Expected: 03/05/2022, Expires: 05/05/2022 [facility] Work Phone: Comment on above: Expected: 03/05/2022 , Expires: 05/05/2022 Start: 02-25-2022 Influenza vaccination [facility] Start: [address] [facility] Start: 2022 Screening for malign ant neoplasm of breast Mammogram Screening [facility] Start: 02-25-2021 Influenza vaccination Flu vaccine (# 1) [facility] Start: 05-19-2016 HEPATITIS B (2 of 3 - Hep B Twinrix 3-dose series) HEPATITIS B (2 of 3 - Hep B Twinrix 3-dose series) [facility] Start: 05-19-2016 Hepatitis B Vaccine (2 of 3 - Hep B Twinrix 3-dose series) Hepatitis B Vaccine (2 of 3 - Hep B Twinrix 3-dose series) [facility] Start: 2001 Urine microalbumin profile DTAP,TDAP,TD (1 - Tdap) [facility] Start: 01-23-1988 PNEUMOCOCCAL (1 - PCV) PNEUMOCOCCAL (1 - PCV) [facility] Start: 01-23-1988 Pneumococcal vaccination Pneumococcal Vaccine (1 - PCV) [facility] Start: 1987 COVID-19 Vaccine (1) COVID-19 Vaccin e (1) [facility] Start: 1982 COVID-19 VACCINE (#1) COVID-19 VACCI NE (#1) [facility] Bacteria identified in Urine by Culture URINE CULTURE Microbiology Routine Dysuria 04/30/2023 9:30 AM EDT [facility] Work Phone: End: 06-25-2023 Bx breast w/device 1st lesion ultrasound guid US BIOPSY BREAST RT Radiology Routine Mass of right breast, unspecified quadrant 1 Occurrences starting 05/26/2022 until 06/25/2023 [facility] Work Phone: Comment on above: 1 Occurrences starti ng 05/26/2022 until 06/25/2023 COVID & INFLUENZA A/ B & RSV NAAT, ROUTINE COVID & INFLUENZA A/B & RSV NAAT, ROUTINE Microbiology Routine Flu-like symptoms URI, acute Ordered: 08/01/2023 [facility] Work Phone: Comment on above: Ordered: 08/01/2023 End: 02-09-2025 DBT Breast - bilateral screening KEYON SCREENING W TERESITA Radiology Routine Encounter for screening mammogram for breast cancer 1 Occurrences starting 01/11/2024 until 02/09/2025 [facility] Work Phone: Comment on above: 1 Occurrences starti ng 01/11/2024 until 02/09/2025 End: 08-08-2025 DBT Breast - bilateral screening KEYON SCREENING W TERESITA Radiology Routine Encounter for screening mammogram for breast cancer 1 Occurrences starting 07/09/2024 until 08/08/[address] [facility] Comment on above: 1 Occurrences starti ng 07/09/2024 until 08/08/2025 End: 06-10-2023 Diagnostic mammography computer-aided detcj bi KEYON DIAGNOSTIC BILAT Radiology Routine Breast pain Mass of lower inner quadrant of right breast 1 Occurrences starting 05/11/2022 until 06/10/2023 [facility] Work Phone: Comment on above: 1 Occurrences starti ng 05/11/2022 until 06/10/2023 End: 06-30-2023 Diagnostic mammography computer-aided detcj bi KEYON DIAGNOSTIC BILAT Radiology Routine Abnormal finding on radiological examination of breast 1 Occurrences starting 05/31/2022 until 06/30/2023 [facility] Work Phone: Comment on above: 1 Occurrences starti ng 05/31/2022 until 06/30/2023 End: 06-06-2023 Diagnostic mammography computer-aided detcj uni KEYON DIAGNOSTIC RT Radiology Routine Breast pain Mass of lower inner quadrant of right breast 1 Occurrences starting 05/07/2022 until 06/06/2023 [facility] Work Phone: Comment on above: 1 Occurrences starti ng 05/07/2022 until 06/06/2023 ECG COMPLETE ECG COMPLETE ECG Routine Tachycardia Ordered: 04/30/2023 [facility] Work Phone: Comment on above: Ordered: 04/30/2023 Hepb vaccine adult 2 dose schedule for im use HEPLISAV B (HEPATITIS B, ADJUVANT, ADULT) Immunization/Injection Routine Encounter for immunization Ordered: 05/07/2022 [facility] Work Phone: Comment on above: Ordered: 05/07/2022 Influenza virus A an d B RNA and SARS-CoV-2 (COVID-19) N gene panel - Respiratory specimen by MARY KAY with probe detection COVID WITH FLUA+B, ROUTINE Microbiology Routine Viral illness 01/20/2022 4:05 PM EDT [facility] Work Phone: Influenza virus A an d B RNA and SARS-CoV-2 (COVID-19) N gene panel - Respiratory specimen by MARY KAY with probe detection COVID WITH FLUA+B, ROUTINE Microbiology Routine Viral URI with cough 09/09/2022 10:51 AM EDT [facility] Work Phone: Influenza virus A an d B RNA and SARS-CoV-2 (COVID-19) N gene panel - Respiratory specimen by MARY KAY with probe detection COVID & INFLUENZA A/B NAAT, ROUTINE Microbiology Routine Acute cough 08/11/2023 9:10 AM EST [facility] Work Phone: End: 03-10-2024 KEYON SCREENING KEYON SCREENING Radiology Routine Encounter for screening mammogram for breast cancer 1 Occurrences starting 02/09/2023 until 03/10/2024 [facility] Work Phone: Comment on above: 1 Occurrences starti ng 02/09/2023 until 03/10/2024 End: 03-08-2025 MR Shoulder - right WO contrast MRI SHOULDER WO IVCON RIGHT Radiology Routine S/P right rotator cuff repair Right shoulder pain, unspecified chronicity 1 Occurrences starting 02/07/2024 until 03/08/2025 [facility] Work Phone: Comment on above: 1 Occurrences starti ng 02/07/2024 until 03/08/2025 End: 03-09-2024 MRI SHOULDER WO/W IVCON RIGHT MRI SHOULDER WO/W IVCON RIGHT Radiology Routine Tear of right glenoid labrum, subsequent encounter Chronic right shoulder pain 1 Occurrences starting 02/08/2023 until 03/09/2024 [facility] Work Phone: Comment on above: 1 Occurrences starti ng 02/08/2023 until 03/09/2024 PAP TEST PAP TEST Lab [facility] Screening for cervical cancer Encounter for screening for human papillomavirus (HPV) Ordered: 07/09/2024 [facility] Work Phone: Comment on above: Ordered: 07/09/2024 End: 12-31-2023 Radex sacrum & coccyx minimum 2 views XR SACRUM/COCCYX 3V AP/LAT Radiology Routine Coccydynia 1 Occurrences starting 12/01/2022 until 12/31/2023 [facility] Work Phone: Comment on above: 1 Occurrences starti ng 12/01/2022 until 12/31/2023 Radex sacrum & coccy x minimum 2 views XR SACRUM/COCCYX 3V AP/LAT Radiology Routine Coccydynia 12/01/2022 2:08 PM EDT [facility] Work Phone: End: 04-02-2023 Screening mammography bi 2-view breast inc cad KEYON SCREENING Radiology Routine Encounter for screening mammogram for breast cancer 1 Occurrences starting 03/03/2022 until 04/02/2023 [facility] Work Phone: Comment on above: 1 Occurrences starti ng 03/03/2022 until 04/02/2023 UA DIP B/O UA DIP B/O Lab R outine Acute cystitis with hematuria Ordered: 04/25/2023 [facility] Work Phone: Comment on above: Ordered: 04/25/2023 End: 06-06-2023 Us breast uni real time with image limited US BREAST LTD RT Radiology Routine Breast pain Mass of lower inner quadrant of right breast 1 Occurrences starting 05/07/2022 until 06/06/2023 [facility] Work Phone: Comment on above: 1 Occurrences starti ng 05/07/2022 until 06/06/2023 End: 06-30-2023 Us breast uni real time with image limited US BREAST LTD RT Radiology Routine Abnormal finding on radiological examination of breast 1 Occurrences starting 05/31/2022 until 06/30/2023 [facility] Work Phone: Comment on above: 1 Occurrences starti ng 05/31/2022 until 06/30/2023 End: 05-25-2024 XR Hand - right PA and Lateral and Oblique XR HAND GENERAL 3V PA/LAT/OBL RIGHT Radiology STAT Pain of right hand 1 Occurrences starting 05/23/2024 until 05/25/2024 [facility] Work Phone: Comment on above: 1 Occurrences starti ng 05/23/2024 until 05/25/2024 End: 10-21-2025 XR HIP BILATERAL 5V PEL/AP/LAT EACH HIP XR HIP BILATERAL 5V PEL/AP/LAT EACH HIP Radiology Routine Right hip pain 1 Occurrences starting 09/21/2024 until 10/21/2025 [facility] Work Phone: Comment on above: 1 Occurrences starti ng 09/21/2024 until 10/21/2025 XR HIP BILATERAL 5V PEL/AP/LAT EACH HIP XR HIP BILATERAL 5V PEL/AP/LAT EACH HIP Radiology Routine Right hip pain 09/21/2024 9:28 AM EDT [facility] Immunizations Immunization Date Immunization Notes Care Provider [facility] 03-18-2024 tetanus toxoid, reduced diphtheria toxoid, and acellular pertussis vaccine, adsorbed Sam Erin DIETITIAN CONSULTANT.[employer] Work Phone: [facility] 04-30-2023 influenza, injectable, quadrivalent, contains preservative Rick Queen MD Work Phone: [facility] 04-30-2023 pneumococcal (PCV20) vaccine, 20 valent (PREVNAR 20) Rick Queen MD Work Phone: [facility] 04-30-2023 pneumococcal Conjugate, unspecified formulation Rick Queen MD Work Phone: [facility] Work Phone: 04-30-2023 influenza virus vaccine, unspecified formulation Sam Khan DIETITIAN CONSULTANT.[employer] Work Phone: [facility] 03-15-2022 tetanus toxoid, reduced diphtheria toxoid, and acellular pertussis vaccine, adsorbed Karen Gaspar DIETITIAN CONSULTANT.DESIGN SUPERVISOR Work Phone: [facility] Work Phone: 06-16-2017 influenza virus vaccine, unspecified formulation Sam Khan DIETITIAN CONSULTANT.[employer] Work Phone: [facility] 04-21-2016 hepatitis A and hepatitis B vaccine Maile Norman MD Work Phone: [facility] Work Phone: 04-21-2016 hepatitis B vaccine, unspecified formulation Maile Norman MD Work Phone: [facility] 04-10-2009 influenza virus vaccine, unspecified formulation Maile Norman MD Work Phone: [facility] 04-26-2006 influenza virus vaccine, unspecified formulation Maile Norman MD Work Phone: [facility] Work Phone: 01-25-1998 tetanus immune globulin Maile Norman MD Work Phone: [facility] Work Phone: NEGATED: Highlighted row has not occurred!05-07-2022 Hepatitis B vaccine (recombinant), CpG adjuvanted Karen Gaspar APRN.DESIGN SUPERVISOR Work Phone: [facility] Work Phone: Comment on above: Deferred: Postponed Payers Date Payer Category Payer Self-pay 2023 Unknown [id number] 2022 Unknown [id number] 2019 Medicaid [place] [employer] [place] [employer] [id number] 2019-Present [phone] [address] [place], [place] [address] Medicaid [id number] 2019 Medicaid [id number] 2019 Unknown [id number] 1982 Unknown [id number] 1982 Unknown [id number] [id number] 1982 Unknown [id number] 2.840.1.798833.3.579.2.627 Unknown [id number] 2.840.1.315170.3.579.2.627 Unknown [id number] 2.840.1.450819.3.579.2.627 Unknown [id number] 2.840.1.801886.3.579.2.627 Unknown [id number] 2.840.1.820350.3.579.2.462 Unknown [id number] 2.840.1.587930.3.579.2.462 Unknown [id number] 2.840.1.670150.3.579.2.462 Unknown [id number] 2.16840.1.898724.3.579.2.462 Unknown [id number] 2.16840.1.305110.3.579.2.462 Unknown [id number] 2.16840.1.465897.3.579.2.462 Unknown [id number] 2.16840.1.972996.3.579.2.462 Unknown [id number] 2.840.1.146820.3.579.2.462 Unknown [id number] 2.16.840.1.587979.3.579.2.462 Unknown [id number] 2.16.840.1.445496.3.579.2.462 Unknown [id number] 2.16.840.1.382879.3.579.2.462 Unknown [id number] 2.16.840.1.522187.3.579.2.462 Unknown [id number] 2.16.840.1.298612.3.579.2.462 Unknown [id number] 2.16.840.1.557124.3.579.2.462 Unknown [id number] 2.16.840.1.561000.3.579.2.462 Unknown [id number] 2.16.840.1.580314.3.579.2.462 Unknown [id number] 2.16.840.1.349758.3.579.2.462 Unknown [id number] 2.16.840.1.115741.3.579.2.462 Unknown [id number] 2.16.840.1.995759.3.579.2.462 Unknown [id number] 2.16.840.1.903863.3.579.2.462 Unknown [id number] 2.16.840.1.106374.3.579.2.462 Unknown [id number] 2.16.840.1.772785.3.579.2.462 Unknown [id number] 2.16.840.1.998759.3.579.2.462 Social History Date Type Detail Facility Start: 05-09-2016 End: 02-16-2024 Tobacco smoking status HIIS Smokes tobacco daily [facility] Start: 05-09-2016 End: 02-16-2024 Tobacco use and exposure Smokeless tobacco non-user [facility] Work Phone: Start: 07-18-2021 End: 11-28-2024 Alcohol intake Current non-drinker of alcohol (finding) [facility] Work Phone: Start: 1980 Sex Assigned At Not on file [facility] Work Phone: Start: 02-07-2021 End: 05-25-2022 Exposure to SARS-CoV-2 (event) Not sure [facility] Work Phone: History of tobacco use Cigarette Smoker [facility] Work Phone: Start: 01-08-2020 End: 12-01-2022 History SDOH Alcohol Frequency [address] [facility] Start: 01-08-2020 History SDOH Alcohol Std Drinks [address] [facility] Start: 01-08-2020 End: 12-01-2022 History SDOH Social Connections Phone [address] [facility] Start: 01-08-2020 End: 12-01-2022 History SDOH Social Connections Living [address] [facility] Start: 01-08-2020 End: 12-01-2022 History SDOH Physical Activity MPS [address] [facility] Start: 01-08-2020 End: 12-01-2022 History SDOH Stress [address] [facility] Start: 01-08-2020 End: 12-01-2022 History SDOH Financial [address] [facility] Start: 01-08-2020 Education [address] [facility] Start: 01-10-2022 End: 01-20-2022 Exposure to SARS-CoV-2 (event) Yes [facility] Work Phone: Start: 01-27-2009 End: 12-01-2022 Cigarettes smoked current (pack per day) - Reported [address] [facility] Start: 12-01-2022 End: 10-10-2023 Social connection and isolation panel [facility] Are you now , , , , never or living with a partner? [facility] How often to you hav e a drink containing alcohol? Never [facility] How many standard dr inks containing alcohol do you have on a typical day? Patient does not drink [facility] How hard is it for y ou to pay for the very basics like food, housing, medical care, and heating Not very hard [facility] Do you feel stress - tense, restless, nervous, or anxious, or unable to sleep at night because your mind is troubled all the time - these days [OSQ] Very much [facility] (I/We) worried wheth er (my/our) food would run out before (I/we) got money to buy more. Never true [facility] At any time in the p ast 12 months, were you homeless or living in fci [including now]? No [facility] Start: 06-28-2019 End: 04-29-2024 Tobacco smoking status Heavy tobacco smoker (finding) [facility] Sex Assigned At Sex [facility] (I/We) worried wheth er (my/our) food would run out before (I/we) got money to buy more. Often true [facility] The food that (I/we) bought just didn't last, and (I/we) didn't have money to get more. Sometimes true [facility] Medical Equipment Procedure Code Equipment Code Equipment Origin al Text Equipment Identifier Dates Kit Fiberloop 3. 2mm Suture Drill Pin Needle Shoehorn Cannula Proximal - [id number] Start: 08-29-2023 [place] 2.9mm Short Biocomposite 12.5mm Suture Cannulated Eyelet - [id number] Start: 08-29-2023 [place] 2.9mm Short Biocomposite 12.5mm Suture Cannulated Eyelet - [id number] Start: 08-29-2023 [place] 2.9mm Short Biocomposite 12.5mm Suture Cannulated Eyelet - [id number] Start: 10-12-2024 [place] 2.9mm Short Biocomposite 12.5mm Suture Cannulated Eyelet - [id number] Start: 10-12-2024 [place] 2.9mm Short Biocomposite 12.5mm Suture Cannulated Eyelet - [id number] Start: 10-12-2024 Functional Status Date Assessment Result Facility 04-29-2024 Functional Status Standard Safet y ID band on, Call device within reach, Bed in low position, Wheels locked, Bedside Cart Locked, Visitor at bedside, Safety level maintained [facility] 02-10-2024 Functional Status Independent [facility] 02-10-2024 Functional Status ID band on, Allergy Band on, Call device within reach, Bed in low position, Wheels locked [facility] 09-26-2023 Functional Status Independent [facility] 09-26-2023 Functional Status Independent [facility] 03-15-2023 Functional Status Standard Safet y ID band on, Call device within reach, Bed in low position, Wheels locked, Upper/Half-Length side-rails up [facility] 01-25-2023 Functional Status ID band on [facility] 10-17-2014 Are you deaf, or do you have serious difficulty hearing No 10/17/2014 1:21 PM EDSharmin Rice LPN No [facility] 10-17-2014 Are you blind, or do you have serious difficulty seeing, even when wearing glasses No 10/17/2014 1:21 PM Sharmin Aguayo LPN No [facility] 10-17-2014 Do you have serious difficulty walking or climbing stairs No 10/17/2014 1:21 PM EDSharmin Rice LPN No [facility] 10-17-2014 Do you have difficul ty dressing or bathing No 10/17/2014 1:21 PM Sharmin Aguayo LPN No [facility] 10-17-2014 Because of a physica l, mental, or emotional condition, do you have difficulty doing errands alone such as visiting a physician's office or shopping No 10/17/2014 1:21 PM Sharmin Aguayo LPN No [facility] Mental Status Date Assessment Result Facility 04-29-2024 Mental Status Orientation Oriented x 4 [facility] 04-29-[address] [facility] 02-10-2024 Mental Status Orientation Oriented x 4 [facility] 02-10-[address] [facility] 09-26-2023 Mental Status Orientation Oriented x 4 [facility] 09-26-[address] [facility] 01-25-2023 Mental Status Oriented x 4 [facility] 10-17-2014 Because of a physica l, mental, or emotional condition, do you have serious difficulty concentrating, remembering, or making decisions Yes 10/17/2014 1:21 PM EDT Sharmin Monge LPN Yes [facility] Clinical Notes 06-15-2016 to 12-03-2024 Sam Khan APRN.[facility] - 12/03/2024 11:16 AM EDTTelephone Encounter - Sam Khan APRN.[facility] - 12/03/2024 8:12 AM EDTTelephone Encounter - Sam Khan APRN.[facility] - 12/03/2024 8:12 AM EDT Note Date & Type Note [facility] 12-03-2024 Note [facility] 12-03-2024 History of Present illness Narrative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 surgery or stents. Denies rest pain, [...] > 1 time per night or hematuria. CIVIL CAD DESIGNER: Negative for abnormal vaginal bleeding, abnormal vaginal [...] Anxiety Congestive heart failure (HCC) during . Welfare Aide took her off meds. No issues in [...] & curettage,TAB ESOPHAGOGASTRODUODENOSCOPY TRANSORAL DIAGNOSTIC 11/01/[address] [facility] inpt H-pylori negative LIG/TRNSXJ FLP TUBE ABDL/VAG APPR UNI/BI 04/09/2006 Tubal ligation MYRINGOTOMY ASPIR&/EUSTACHIAN TUBE NFLTJ ANES 06/27/1994 Myringotomy/tubes OOPHORECTOMY PARTIAL/TOTAL UNI/BI left REPAIR ROTATOR CUFF,ACUTE Right 2023 TONSILLECTOMY PRIMARY/SECONDARY <AGE 12 06/27/1987 Tonsillectomy FAMILY HISTORY Problem Relation Age of Onset Psychiatry Mother DEPRESSION Hypertension Father Cervical Cancer Maternal Grandmother Hypertension Maternal Grandmother Cancer Maternal Grandfather BLADDER Heart Maternal Grandfather MN & EMPHYSEMA Social History Tobacco Use Smoking [...] or any previous visit (from the past 09783 hours). Instructions Given to Patient: Instructions located in the after visit summary. Patient given verbal and written preop instructions and voices comprehension and compliance. SIGNATURE: Sharmin Quinteros APRN.CNP PATIENT NAME: Pat Knight DATE: September 28, 2024 TIME: 9:10 AM PAGER/CONTACT #: documented in this encounter [facility] 09-28-2024 Instructions Sharmin Quinteros APRN.CNP - 09/28/2024 9:09 AM EDT Images from the original note were not included. [facility] PATIENT PREOPERATIVE INSTRUCTIONS Louis Valencia,* has scheduled you for your procedure at this surgery center: [facility]: [phone] -- [address] [address]. Please read below carefully for your personalized [...] office. If you are currently using a ichw-njc-[id number] injectable or oral medication for diabetes or [...] Procedures: - YOU MUST HAVE A RESPONSIBLE FLOOR GRINDER TAKE YOU HOME. A ACADEMIC PROGRAM SPECIALIST OR COLLECTION SUPPORT SPECIALIST CANNOT BE MADE A RESPONSIBLE FLOOR GRINDER. - We recommend that a responsible person [...] Advance Directive, please fax a copy to [phone] or email to for it to be [...] Quinteros APRN.LUIS DANIEL documented in this encounter [facility] 09-27-2024 Telephone encounter Note Pt called in checking on medication refills. I let her know that Dr Norman is out of the office on . She had previous nurse forward message from Sam Khan Leather Scraper to Dr Norman when she found out she was off. I let her know she sent I to the provider. [facility] 09-27-2024 Telephone encounter Note Patient calls [...] Dr. Norman as requested. Violeta Howard RN [facility] 09-21-2024 History of Present illness Narrative [...] PATIENT PRESENTS WITH AN IMPLANTABLE OR ATTACHED SOFTWARE DESIGNER: No RADIOLOGY DEPARTMENT: General X-ray: Exam(s) Completed: Pelvis X-Ray: Pelvis with Hip Bilateral PERIPHERAL IV DATA: Not applicable SIGNED BY: RT Verónica(R) September 21, 2024 9:17 AM documented in this encounter [facility] 09-21-2024 Note [facility] 09-21-2024 Note [facility] 09-21-2024 History of Present illness Narrative [...] The patient consented to the use of Joonto software for draft documentation of the visit consistent with [facility] s Notice of Privacy Practices. Her [...] Khan APRN-LUIS DANIEL documented in this encounter [facility] 09-14-2024 Note [facility] 09-14-2024 History of Present illness Narrative [...] Ricardo (pain) - Pain with Speed and [place] testing - Pain with Belly Press test [...] & Elbow Surgeon Department of Orthopaedic Surgery [facility] documented in this encounter [facility] 09-13-2024 Telephone encounter Note The following approved medication requests have been transmitted electronically. Requested Prescriptions Signed Prescriptions Disp Refills oxyCODONE-acetaminophen (PERCOCET) 5-325 mg tablet 56 tablet 0 Sig: Take 1 tablet by mouth every 6 hours as needed for pain for up to 14 days. Patient should start on September 17, 2024. Authorizing Provider: MAILE NORMAN MD [facility] 09-13-2024 Miscellaneous Notes The following approved [...] 2024 7:40 AM documented in this encounter [facility] 09-13-2024 Telephone encounter Note Prescription Refill [...] MALENA Diaz September 13, 2024 7:[address] [facility] 08-31-2024 Telephone encounter Note The following [...] 03, 2024. Authorizing Provider: MAILE NORMAN MD [facility] 08-31-2024 Miscellaneous Notes The following approved [...] Nell Haynes LPN. documented in this encounter [facility] 08-30-2024 Telephone encounter Note Patient has [...] Please advise. Thank you. Nell Haynes LPN. [facility] 08-20-2024 Telephone encounter Note Addressed in another encounter dated 08/18/24. [facility] 08-20-2024 Miscellaneous Notes Addressed in another encounter dated 08/18/24. Patient is calling to speak to clinical about pain medication. Patient is leaving Tuesday morning at 5:00 am, and states refill is not due until Tuesday. She is asking to have it filled prior. Please call patient today. documented in this encounter [facility] 08-20-2024 Telephone encounter Note PATIENT NOTIFIED OF SAME. [facility] 08-20-2024 Miscellaneous Notes PATIENT NOTIFIED OF [...] in law is in the hospital in [place]. Patient is asking for the Percocet rx [...] fly out tomorrow morning to go to [place], her mother in law is not doing well. Patient uses [facility] for her pharmacy. Would need approval put on the rx to have pharmacy fill rx today. Please advise documented in this encounter [facility] 08-20-2024 Telephone encounter Note Below noted [...] family emergency Authorizing Provider: MAILE NORMAN MD [facility] 08-20-2024 Telephone encounter Note Patient calling back and states that she needs this done because he already postponed her flight once because she did not get her pain medications. Patient states that pain medications are due tomorrow but pharmacy will fill prescription if provider ok refill early. Gertrude Ortiz RN [facility] 08-20-2024 Telephone encounter Note Patient calling she postponed her flight from yesterday to this evening. Patient said her mother in law is in the hospital in [place]. Patient is asking for the Percocet rx for today and to be able to fill it today please. Please notify patient when rx is sent to the pharmacy. Please advise [facility] 08-18-2024 Telephone encounter Note Patient calling regarding Needing a refill of her pain medication before she leaves the area.. Conferenced to [facility] needle felt making machine operator, Bonita, to speak with provider television cameraman for [facility]. [facility] 08-18-2024 Miscellaneous Notes Patient calling regarding Needing a refill of her pain medication before she leaves the area.. Conferenced to [facility] needle felt making machine operator, Bonita, to speak with provider television cameraman for [facility]. documented in this encounter [facility] 08-18-2024 Telephone encounter Note Patient calling [...] have any questions, you can call Nurse bonbon cream warmer back. [facility] 08-18-2024 Miscellaneous Notes Patient calling with request [...] have any questions, you can call Nurse bonbon cream warmer back. documented in this encounter [facility] 08-18-2024 Telephone encounter Note Patient calling asking if PCP could give her Percocet rx to be filled today, is due to be refilled on Tuesday. Patient said she has family emergency and needs to fly out tomorrow morning to go to [place], her mother in law is not doing well. Patient uses [facility] for her pharmacy. Would need approval put on the rx to have pharmacy fill rx today. Please advise [facility] 08-18-2024 Telephone encounter Note Patient is calling to speak to clinical about pain medication. Patient is leaving Tuesday at 5:00 am, and states refill is not due until Tuesday. She is asking to have it filled prior. Please call patient today. [facility] Work Phone: 08-08-2024 Telephone encounter Note Surgical Garment Assembler request faxed/scanned in osbaldo luda Snell. ^^^^^^^^^^^^^^^^^^^^ Patient called in inquiring about the letter she brought in at her appointment when she saw Dr. Valencia at her appointment in May,. (This letter has been scanned into her chart). Per Dr. Valencia he did answer the questions in his dictation and this will be forwarded to her workers compensation attorney's office by his sterile technician. I left a message for the patient to call back with any additional questions or concerns about the cortisone injection she received. She did stated that she was still having some pain. Charles Stanton [facility] 08-08-2024 Miscellaneous Notes Surgical Garment Assembler request faxed/scanned in osbaldo per Alis. ^^^^^^^^^^^^^^^^^^^^ Patient called in inquiring about the letter she brought in at her appointment when she saw Dr. Valencia at her appointment in May,. (This letter has been scanned into her chart). Per Dr. Valencia he did answer the questions in his dictation and this will be forwarded to her workers compensation attorney's office by his sterile technician. I left a message for the patient to call back with any additional questions or concerns about the cortisone injection she received. She did stated that she was still having some pain. Charles Stanton documented in this encounter [facility] 08-04-2024 Telephone encounter Note The following approved medication requests have been transmitted electronically. Requested Prescriptions Signed Prescriptions Disp Refills oxyCODONE-acetaminophen (PERCOCET) 5-325 mg tablet 56 tablet 0 Sig: Take 1 tablet by mouth every 6 hours as needed for pain for up to 14 days. Patient should start on August 07, 2024. Authorizing Provider: MAILE NORMAN MD [facility] 08-04-2024 Miscellaneous Notes The following approved [...] 2024 7:45 AM documented in this encounter [facility] 08-03-2024 Note [facility] 08-03-2024 History of Present illness Narrative [...] & Elbow Surgeon Department of Orthopaedic Surgery [facility] documented in this encounter [facility] 08-03-2024 Telephone encounter Note The patient [...] Minaya LPN August 03, 2024 7:[address] [facility] 07-31-2024 Instructions Maile Norman MD - [...] needed for headache relief; these are available [id number]. - Continue taking Oxycodone as needed for [...] ensure they are addressed. - Consider exploring [facility] for additional support and resources. - Next follow-up appointment in 3 months. documented in this encounter [facility] 07-31-2024 Note [facility] 07-31-2024 History of Present illness Narrative This note was created using [employer]. Subjective Pat Knight is a 44 year [...] her counselor and has recently started attending scientologist, which she finds helpful. Pat is currently [...] Anxiety Congestive heart failure (HCC) during . Welfare Aide took her off meds. No issues in [...] the date of the service which included [id number] patient care, completing clinical documentation, obtaining and/or reviewing separately obtained history, performing a medically appropriate examination, counseling and educating the patient/family/caregiver, and ordering medications, tests, or procedures. Maile Norman MD documented in this encounter [facility] 07-20-2024 Telephone encounter Note The following approved medication requests have been transmitted electronically. Requested Prescriptions Signed Prescriptions Disp Refills oxyCODONE-acetaminophen (PERCOCET) 5-325 mg tablet 56 tablet 0 Sig: Take 1 tablet by mouth every 6 hours as needed for pain for up to 14 days. Patient should start on July 24, 2024. Authorizing Provider: MAILE NORMAN MD [facility] 07-20-2024 Miscellaneous Notes The following approved [...] 2024 8:44 AM documented in this encounter [facility] 07-20-2024 Telephone encounter Note The patient [...] Minaya LPN July 20, 2024 8:[address] [facility] 07-19-2024 Note [facility] Medical Records Department [address] [place] [address] History Physical Exam 07/19/24 1124 MR#: [id number] Acct: [id number] Name: PAT KNIGHT Rep #: [id number] : 1980 44 From: Constanza Cordova MD PCP: Dr. Maile Norman MD Status:REG [facility] Location: [place] [address] History and Physical Date of Admission: 07/19/24 [...] Norman MD; Dr. Constanza Cordova MD Signed [facility] 07-16-2024 Telephone encounter Note Form and office note has been faxed to number below. [facility] 07-16-2024 Miscellaneous Notes Form and office note has been faxed to number below. Ok will send today. Nguyen with [employer] with Dr Cordova called in and reports Pt had an appointment with Karen Gaspar on 07/13/24. She states Pt brought in medical clearance form for provider to fill out. They need the medical clearance form and OV note from 07/13 faxed over to # [phone]. She is asking if this can be done today as the Pt has surgery on . Otilia Douglas RN documented in this encounter [facility] 07-16-2024 Telephone encounter Note Ok will send today. [facility] 07-16-2024 Telephone encounter Note Nguyen with [employer] with Dr Cordova called in and reports Pt had an appointment with Karen Gaspar on 07/13/24. She states Pt brought in medical clearance form for provider to fill out. They need the medical clearance form and OV note from 07/13 faxed over to # [phone]. She is asking if this can be done today as the Pt has surgery on . Otilia Douglas RN [facility] 07-13-2024 History of Present illness Narrative [...] plastic surgery with Dr. Constanza Cordova at [facility] with date to be determined following this [...] to resolution. No recurrence. No history of MN or CVA. No shortness of breath on [...] Anxiety Congestive heart failure (HCC) during . Welfare Aide took her off meds. No issues in [...] DIFFERENTIAL - COMPREHENSIVE METABOLIC PANEL Karen Gaspar APRN.DESIGN SUPERVISOR Medical Decision Making: Problems: Moderate: 2+ stable chronic illnesses Data: Unique test(s) ordered: 2 Risk: Moderate: Decision on minor surgery w/ risk factors Medical Decision Making Level: 4 - Moderate documented in this encounter [facility] 07-13-2024 Note [facility] 07-11-2024 History of Present illness Narrative Rescheduled documented in this encounter [facility] 07-11-2024 Note HNO ID: [id number] Author: MAILE NORMAN MD Service: ? Author Type: Physician Type: Progress Notes Filed: 08/16/2024 22:36 Note Text: Rescheduled [facility] 07-09-2024 Note [facility] 07-09-2024 History of Present illness Narrative Photographic Restorer offered: Patient declinesPrince Stewart is a 44 [...] L2 SAB2 IAB1 Ectopic0 Multiple0 Live Births2 Deckhand History LMP: 05/07/2009, Ablation Age at Menarche: Age at First : Age at Menopause: Deckhand History Comments: Sexual Activity: Yes; Male Contraception: Surgical, Tubal Ligation PAST MEDICAL HISTORY Diagnosis Date Abdominal pain, unspecified site Abnormal glandular Papanicolaou smear of cervix 04/08/2006 Abn. 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 Welfare Aide took her off meds. No issues in [...] & curettage,TAB ESOPHAGOGASTRODUODENOSCOPY TRANSORAL DIAGNOSTIC 11/01/[address] [facility] inpt H-pylori negative LIG/TRNSXJ FLP TUBE ABDL/VAG APPR UNI/BI 04/09/2006 Tubal ligation MYRINGOTOMY ASPIR&/EUSTACHIAN TUBE NFLTJ ANES 1994 Myringotomy/tubes OOPHORECTOMY PARTIAL/TOTAL UNI/BI left TONSILLECTOMY PRIMARY/SECONDARY <AGE 12 1988 Tonsillectomy FAMILY HISTORY Problem Relation Age of Onset Psychiatry Mother DEPRESSION Hypertension Father Cervical Cancer Maternal Grandmother Hypertension Maternal Grandmother Cancer Maternal Grandfather BLADDER Heart Maternal Grandfather MN & EMPHYSEMA SOCIAL HISTORY Social History Tobacco [...] discussed with the Patient or Patient's Authorized Button Spindler. As applicable, any other physician, advance practice provider, medical student, or other health professional student that will be observing or involved in the sensitive examination for educational or training purposes was discussed with the Patient or Authorized Button Spindler. The Patient or Authorized Button Spindler has agreed to proceed with the sensitive [...] external genitalia normal, normal Bartholin's glands, urethra, [place]'s glands, no vulvar lesions, no cervical lesions, [...] STIMULATING HORMONE - ESTRADIOL-17B BLD Cecile Herndon APRN.EVP HEAD OF [employer] EXPERIENCE STRATEGY documented in this encounter [facility] 07-07-2024 Telephone encounter Note Pt notified and voiced understanding. Adelina Porras MA [facility] 07-07-2024 Miscellaneous Notes Pt notified and voiced understanding. Adelina Porras MA I am not able to do that as the television cameraman doctor. Jorge Luis Ace MD Pt called in and reports her mother in law in [place], [place] just had a heart attack. She states her and he are going down there after he gets done with work tonight. She states she is going to try and get her into a chcf up here. She states provider put in to have her Percocet refilled on Tue07/10/24. She is asking if provider would allow her to get it filled early. I told her another provider may not, and they could call it into as pharmacy where she goes to. Please call and advise. documented in this encounter [facility] 07-07-2024 Telephone encounter Note I am not able to do that as the television cameraman doctor. Jorge Luis Ace MD [facility] Work Phone: 07-07-2024 Telephone encounter Note Pt called in and reports her mother in law in [place], [place] just had a heart attack. She states her and he are going down there after he gets done with work tonight. She states she is going to try and get her into a chcf up here. She states provider put in to have her Percocet refilled on Tue07/10/24. She is asking if provider would allow her to get it filled early. I told her another provider may not, and they could call it into as pharmacy where she goes to. Please call and advise. [facility] 07-06-2024 Telephone encounter Note RX filled [...] 10, 2024. Authorizing Provider: MAILE NORMAN MD [facility] 07-06-2024 Miscellaneous Notes RX filled 06/26 [...] Zara Jay LPN documented in this encounter [facility] 07-06-2024 Telephone encounter Note Last script filled on 06/23/2024. Pended Zara Jay LPN [facility] 07-02-2024 Telephone encounter Note Prescription Refill [...] Walton LPN July 02, 2024 2:[address] [facility] 07-02-2024 Miscellaneous Notes Prescription Refill Information [...] 2024 2:19 PM documented in this encounter [facility] 06-23-2024 Telephone encounter Note The following approved medication requests have been transmitted electronically. Requested Prescriptions Signed Prescriptions Disp Refills oxyCODONE-acetaminophen (PERCOCET) 5-325 mg tablet 56 tablet 0 Sig: Take 1 tablet by mouth every 6 hours as needed for pain for up to 14 days. Patient should start on June 26, 2024. Authorizing Provider: MAILE NORMAN MD [facility] 06-23-2024 Miscellaneous Notes The following approved [...] 2024 3:23 PM documented in this encounter [facility] 06-23-2024 Telephone encounter Note The following approved medication requests have been transmitted electronically. Requested Prescriptions Pending Prescriptions Disp Refills meloxicam (MOBIC) 15 mg tablet 30 tablet 5 Sig: Take 1 tablet by mouth once daily. With food. Maile Norman MD [facility] 06-23-2024 Miscellaneous Notes The following approved [...] 2024 3:24 PM documented in this encounter [facility] 06-22-2024 Telephone encounter Note Prescription Refill [...] Simpson LPN June 22, 2024 3:[address] [facility] 06-22-2024 Telephone encounter Note Prescription Refill [...] Simpson LPN June 22, 2024 3:[address] [facility] 06-15-2024 History of Present illness Narrative [...] PATIENT PRESENTS WITH AN IMPLANTABLE OR ATTACHED SOFTWARE DESIGNER: No RADIOLOGY DEPARTMENT: MR; Exam(s) Completed: Upper MSK: Shoulder, right PERIPHERAL IV DATA: Not applicable SIGNED BY: RT Krys(R) June 15, 2024 1:08 PM documented in this encounter [facility] 06-15-2024 Note [facility] 06-10-2024 Telephone encounter Note The following approved medication requests have been transmitted electronically. Requested Prescriptions Signed Prescriptions Disp Refills oxyCODONE-acetaminophen (PERCOCET) 5-325 mg tablet 56 tablet 0 Sig: Take 1 tablet by mouth every 6 hours as needed for pain for up to 14 days. Patient should start on June 12, 2024. Authorizing Provider: MAILE NORMAN MD [facility] 06-10-2024 Miscellaneous Notes The following approved [...] 2024 9:06 AM documented in this encounter [facility] 06-08-2024 Telephone encounter Note The patient [...] Minaya LPN June 08, 2024 9:[address] [facility] 06-05-2024 Telephone encounter Note Patient calling asking to have General surgery consult faxed to [facility] at [phone]. Printed face sheet, xray report, office notes, consult and faxed as requested. [facility] 06-05-2024 Miscellaneous Notes Patient calling asking to have General surgery consult faxed to [facility] at [phone]. Printed face sheet, xray report, office notes, consult and faxed as requested. documented in this encounter [facility] 05-29-2024 Telephone encounter Note Images from the original note were not included. Doyle Jakin Alis Espinosa to [facility] 05/29/24 1:17 PM If patient called your office then please return the call. Next time, just have patient call [facility] or have them contact [facility] PreAccess Dept if you don't want to address patient's question because they have not been seen at [facility]. Thank you Called and spoke with the patient. Explained to the patient that because all information about her claim and appointments has not come to the [place] office we were unable to assist her when she called earlier. Told her that a message has been sent over to Lizette Villasenor PA-C and Alis regarding her call from earlier. Patient stated her and her workers compensation attorney have left multiple messages at 's [place] office. Gave her the number for Alis ('s [facility]), the number for the [facility] Pre-Access 3rd republican per the message above from Alis, and the number for the budsw[place]. [facility] 05-29-2024 Miscellaneous Notes Images from the original note were not included. Doyle Jakin Alis Espinosa to [facility] 05/29/24 1:17 PM If patient called your office then please return the call. Next time, just have patient call [place] [facility] or [facility] don't want to address patient's question because they have not been seen at [facility]. Thank you Called and spoke with the patient. Explained to the patient that because all information about her claim and appointments has not come to the [place] office we were unable to assist her when she called earlier. Told her that a message has been sent over to Lizette Villasenor PA-C and Alis regarding her call from earlier. Patient stated her and her workers compensation attorney have left multiple messages at 's [place] office. Gave her the number for Alis ('s [facility]), the number for the [facility] Pre-Access 3rd republican per the message above from Alis, and the number for the ombudsman. Routing to 's Infrastructure Design Engineer for [place] where patient has been seen exclusively. Closing encounter for [facility] [facility]. Patient called stating she needs a letter from Dr Valencia stating why a rotator cuff tear and bicep tendonitis would not show up on an MRI for a court date she had on 05/31/2024. Her workers compensation attorney needs this letter SIM. Fax number for workers compensation attorney's office is [phone] Patient calling She was inquiring about a ltter her attorney lawyer had sent Per pt, Dr Valencia agreed to relate her rotator cuff tear to her work injury for the C9 She has court on May 31 and she needs a letter written by May 30 She states she did call Galenlorna at the [place] office and left a message Please advise documented in this encounter [facility] 05-29-2024 Telephone encounter Note Routing to 's Infrastructure Design Engineer for [place] where patient has been seen exclusively. Closing encounter for [place] [facility]. [facility] 05-29-2024 Telephone encounter Note Patient called stating she needs a letter from Dr Valencia stating why a rotator cuff tear and bicep tendonitis would not show up on an MRI for a court date she had on 05/31/2024. Her workers compensation attorney needs this letter SIM. Fax number for workers compensation attorney's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 for 21 pills. Patient ran out of medication yesterday. Pended. Reports Sam sends the Rx every Tue, but Sam is out this week. [facility] 11-30-2023 Telephone encounter Note Patient returned call, given provider message and voiced understanding. States that she also needs her percocet refilled. States that Sam has been filling it one week at a time and she is out today. Asking if this can be filled. Please advise. [facility] 11-29-2023 Telephone encounter Note Called and left a voicemail for the Patient to call back and ask for a nurse to receive the providers message. Otilia Douglas RN [facility] 11-28-2023 Telephone encounter Note Recently saw [...] 3 days. Authorizing Provider: MAILE NORMAN MD [facility] 11-28-2023 Telephone encounter Note Pat is calling today with complaints of a panic attack that has been going on and off for about 3 days with chest discomfort. She is asking for a short supply of xanax to try and break the cycle. Please call patient once addressed. [facility] 11-23-2023 Telephone encounter Note She continues [...] was identified. 11/23/2023 by Sam Khan APRN.CNP [facility] 11-23-2023 Miscellaneous Notes She continues to [...] Sam Khan APRN.CNP documented in this encounter [facility] 11-16-2023 Telephone encounter Note PDMP website checked and validated. All prescriptions have been APPROPRIATELY filled. No suspicious activity was identified. 11/16/2023 by Sam Khan APRN.CNP [facility] 11-16-2023 Miscellaneous Notes [facility]. All prescriptions have been APPROPRIATELY filled. No suspicious activity was identified. 11/16/2023 by Sam Khan APRN.EVP [employer] documented in this encounter [facility] 11-11-2023 History of Present illness Narrative [...] medications.. BOO Borrero documented in this encounter [facility] 11-09-2023 Telephone encounter Note She continues [...] and to never share or sell medication. [facility] 11-09-2023 Miscellaneous Notes She continues to [...] or sell medication. documented in this encounter [facility] 11-04-2023 Telephone encounter Note OARRS reviewed [...] was identified. 11/04/2023 by Sam Khan APRN.CNP [facility] 11-04-2023 Miscellaneous Notes OARRS reviewed and [...] Sam Khan APRN.CNP documented in this encounter [facility] 10-25-2023 History of Present illness Narrative Program_ID:[id number] Access Code: [email or web address] URL: [email or web address] m/ Date: 10-25-2023 Prepared By: Yodit O'Lobito [...] 10/17/23 Goals updated on 10/25/2023 through 11/29/23 [facility] in home exercise program. -- MET Patient [...] Patient to be seen for Therapeutic exercise (99220), Neuromuscular re-education (17557), Manual therapy (83543), Therapeutic activities (78920), Self-long term management (60881), Gait Training (63277) PLAN FOR NEXT VISIT: continue progressing toward [...] 2x each AROM taken. 2: *Access Code: [email or web address] URL: [email or web address] Date: 10/25/2023 Prepared by: Yodit Guillen [...] and function . Patient education as noted. Self-Long-Term Management: Skilled Intervention: Skilled judgment in the [...] Yodit Baker PT documented in this encounter [facility] 10-21-2023 Telephone encounter Note OARRS reviewed [...] identified. 10/21/2023 by Sam Khan APRN.LUIS DANIEL [facility] 10-21-2023 Miscellaneous Notes OARRS reviewed and [...] Khan APRN.LUIS DANIEL documented in this encounter [facility] 10-14-2023 History of Present illness Narrative [...] unexpected travel plans for care of her [id number]-kj-ikj and will need to refill her percocet [...] medications.. BOO Borrero documented in this encounter [facility] 10-11-2023 Note HNO ID: [id number] Author: LOUIS VALENCIA MD Service: ? Author [...] AND Elbow Surgeon Department of Orthopaedic Surgery [facility] Medical Decision Making: Medical Decision Making Level: 1 - N/A [facility] 10-11-2023 History of Present illness Narrative [...] & Elbow Surgeon Department of Orthopaedic Surgery [facility] Medical Decision Making: Medical Decision Making Level: 1 - N/A documented in this encounter [facility] 10-10-2023 History of Present illness Narrative Program_ID:[id number] Access Code: [email or web address] URL: [email or web address] m/ Date: 10-10-2023 Prepared By: Yodit Baker [...] UMA Malhotra PT documented in this encounter [facility] 10-03-2023 Miscellaneous Notes Spoke with pt and information listed below given. Pt verbalizes understanding. Amber Minaya LPN Reviewed progress note from recent OV with Sam. Has follow up with PT and ortho. Also has follow up this month with Sam. Okay 1 week RX as ordered before 09/26 to [facility] 10/03 The following approved medication requests have [...] Tre Perez MA. documented in this encounter [facility] 10-03-2023 History of Present illness Narrative [...] a follow up with Dr. Valencia on [facility] 10/06/23. Pt wearing abduction sling today, [...] UMA Malhotra PT documented in this encounter [facility] 09-27-2023 History of Present illness Narrative [...] follow up, seen in the ER at [facility] yesterday 09/25. A few days prior she had been cleaning her house in preparation for celebrating [facility]. She was felling very good given her [...] OXYCODONE-ACETAMINOPHEN 5 MG-325 MG TABLET Sam Khan APRN.EVP [employer] Portions of this note have been entered [...] Khan APRN-LUIS DANIEL documented in this encounter [facility] 09-27-2023 Hospital Discharge instructions Patient Education [...] shoulder or upper arm Fever or chills [phone] [employer]. [address] [place] [address]. All rights reserved. This information is not intended as a substitute for professional medical care. Always follow your healthcare professional's instructions. Follow Up Care 09/26/2023 19:29:15 With:Follow-up with your orthopedic surgeon as soon as possible. Address:Unknown When:2-4 days With:MAILE NORMAN Address: [address] [place] [address] [facility] (1) When:2-4 days Comments:Return to ED if symptoms worsen [facility] 09-26-2023 Emergency department Discharge summary Discharge Instructions Thank you for allowing [facility] to assist you with your healthcare needs. [...] Return to ED if symptoms worsen Where: [address] [place] [address] [id number]- [facility] (1) Allergies LaMICtal Pamprin Maximum Pain [...] shoulder or upper arm Fever or chills [phone] [employer]. [address] [place] [address]. All rights reserved. This information is not intended as a substitute for professional medical care. Always follow your healthcare professional's instructions. Additional Information VACCINATE! IT SAVES LIVES! Members of the community who have not yet received the COVID-19 vaccine and would like to receive it can visit one of [facility] vaccine clinics. There are many vaccine clinic locations within the [facility]. For locations and available times, please visit [email or web address]/. It is important to note that some COVID mobile vaccine clinics are held outdoors and may be canceled in rainy or stormy conditions. To learn more about pediatric vaccinations (ages 5-11), we invite you to visit the [facility] webpage. [email or web address]/pages/2 795-Fzngk-Qsntdpomtcg-Frequently-Asked -Questions.html To learn more about the COVID-19 vaccine, we invite you to visit the CDC website for a list of frequently asked questions. https://www.cdc.gov/coronavirus/2019-n cov/vaccines/faq.html [facility] Patient Portal Access Instructions: Stay connected with your healthcare team and access your personal medical information anytime with the [facility] Patient Portal. If you would like a full copy of your medical records please contact the [facility] Medical Records Department Tuesday through Tuesday between 8a.m. and 4:30p.m. Please follow the directions below to access the portal: 1.Access the email account you provided upon [facility].2.Look for an invitation email from [facility].3.Open the email and access the invitation link: Accept Invitation to [employer].Fill in the required moore to create your account. Sign into [email or web address] with your username and password that you [...] you will allow to register on the [employer] Patient Portal for access to your information. You can also access the [facility] Patient Portal on the [employer]. Simply click on "Health Records" under "Health Data" and then click on the ThinkVidya logo. HOW TO SAFELY DISPOSE OF PRESCRIPTION [...] Call your local pharmacy or go to http://LATTO.InfiniDB/0F9Yy1v to find one close to you.3.Make use of household items: Use cat litter or old coffee grounds to dispose medications if other options are not available. Mix your drugs with these household products, seal them in an airtight container and throw it into the garbage. Call [facility]: [phone] to be sure your drugs can be [...] aware that I should contact my doctor. Patient/Button Spindler Signature: _ Date/Time: Relationship to Patient: Witness Name/Signature: Date/Time: [facility] 09-26-2023 Note ORIGINAL EXAMINATION: TWO XRAY [...] 9:41:45 PM Ordering Provider: TU DE ANDA [facility] 09-19-2023 History of Present illness Narrative [...] UMA Malhotra, PT documented in this encounter [facility] 09-15-2023 Miscellaneous Notes Sent to provider with medication request. documented in this encounter [facility] 09-15-2023 Miscellaneous Notes Per Pt MyChart [...] Otilia Douglas RN. documented in this encounter [facility] 09-13-2023 Note HNO ID: [id number] Author: LOUIS VALENCIA MD Service: ? Author [...] AND Elbow Surgeon Department of Orthopaedic Surgery [facility] Medical Decision Making: Medical Decision Making Level: 1 - N/A [facility] 09-13-2023 History of Present illness Narrative [...] & Elbow Surgeon Department of Orthopaedic Surgery [facility] Medical Decision Making: Medical Decision Making Level: 1 - N/A documented in this encounter [facility] 09-09-2023 Instructions Sam Khan APRN.CNP - 09/09/2023 3:19 PM EDT Goal is for the tylenol use to be 4000 mg or less in 24 hours. Keep icing the shoulder. Okay to keep taking the ibuprofen. We will refill the percocet. documented in this encounter [facility] 09-09-2023 History of Present illness Narrative [...] Khan APRN-LUIS DANIEL documented in this encounter [facility] 09-05-2023 History of Present illness Narrative Program_ID:[id number] Access Code: [email or web address] URL: [email or web address] Date: 09-05-2023 Prepared By: Yodit [...] of Care: created on 09/05/23 through 10/17/23 [facility] in home exercise program. 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 Patient education as noted. Self-Long-Term Management: 1: discussed avoiding guarding with codman [...] Yodit Baker PT documented in this encounter [facility] 09-02-2023 Miscellaneous Notes Pt will run out of pain medication on Tuesday. I have put in a refill to be filled not until Tuesday. Last refill 09-01-23 documented in this encounter [facility] 09-01-2023 Miscellaneous Notes Patient called requesting refill of post-op pain medication. Patients last known Refill Date: 08-29-23, date of surgery Patient Phone numbers: [phone] (home) Request is for script(s) to be escript to pharmacy. Alis Espinosa documented in this encounter [facility] 08-29-2023 Note HNO ID: [id number] Author: ASHTYN SANDERSON RN Service: General Surgery Author Type: Registered Nurse Type: Nursing Progress Note Filed: 08/29/2023 15:07 Note Text: Other: patient dressed with 1 assist [facility] 08-29-2023 Note HNO ID: [id number] Author: ASHTYN SANDERSON RN Service: General Surgery Author Type: Registered Nurse Type: Nursing Progress Note Filed: 08/29/2023 14:49 Note Text: Other: patient sat up [facility] 08-29-2023 Note HNO ID: [id number] Author: BRITT WOODS APRN.CRNA Service: Anesthesiology Author Type: Nurse Anchor Operator Type: Anesthesia Procedure Notes Filed: 08/29/2023 13:17 Note Text: ANESTHESIOLOGY PROCEDURE NOTE Airway General Information Procedure Start Time/Medication Administration: 08/29/2023 1:11 PM Patient location during procedure: OR Timeout Performed Pre-procedure: timeout performed Consent Obtained: Yes Patient identity confirmed: arm band and patient Staffing ORTHOPTIST: Britt Woods APRN.ORTHOPTIST Performed by: ROHAN Indications and Patient Condition [...] August 29, 2023 TIME: 1:17 PM CSN: [id number] [facility] 08-29-2023 Note HNO ID: [id number] Author: OTF MCCLENDON MD Service: Anesthesiology Author [...] August 29, 2023 TIME: 12:02 PM CSN: [id number] [facility] 08-23-2023 Miscellaneous Notes Noted, I will [...] Shanon Lowe RN documented in this encounter [facility] 08-18-2023 Note HNO ID: [id number] Author: RADHA NERI APRN.CNP Service: ? Author [...] or if she develops fever. [facility] 08-18-2023 History of Present illness Narrative [...] she develops fever. documented in this encounter [facility] 08-18-2023 Instructions Radha Neri APRN.CNP - 08/18/2023 9:24 AM EST PATIENT PREOPERATIVE INSTRUCTIONS Louis Valencia,* has scheduled you for your procedure at this surgery center: [facility]. [address] [place] [address], [place] [address] Please read below carefully for your personalized [...] surgery. - YOU MUST HAVE A RESPONSIBLE FLOOR GRINDER TAKE YOU HOME. A ACADEMIC PROGRAM SPECIALIST, CAB OR UBER FLOOR GRINDER CANNOT BE MADE A RESPONSIBLE FLOOR GRINDER. - We also require that a responsible [...] Advance Directive, please fax a copy to [phone] or email to for it to be [...] Neri APRN.CNP 08/18/23 documented in this encounter [facility] 08-18-2023 History and physical note HISTORY [...] Initiated: No labs ordered per surgeon in [facility] I spent a total of 40 minutes on the date of the service which included preparing to see the patient, rojh-oc-ypqq patient care, completing clinical documentation, obtaining and/or [...] Negative for: dysuria, hematuria and renal failure. CIVIL CAD DESIGNER: Negative for: vaginal bleeding. 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 Welfare Aide took her off meds. No issues in [...] & curettage,TAB ESOPHAGOGASTRODUODENOSCOPY TRANSORAL DIAGNOSTIC 11/01/[address] [facility] inpt H-pylori negative LIG/TRNSXJ FLP TUBE ABDL/VAG APPR UNI/BI 04/09/2006 Tubal ligation MYRINGOTOMY ASPIR&/EUSTACHIAN TUBE NFLTJ ANES 1994 Myringotomy/tubes OOPHORECTOMY PARTIAL/TOTAL UNI/BI left TONSILLECTOMY PRIMARY/SECONDARY <AGE 12 1987 Tonsillectomy FAMILY HISTORY Problem Relation Age of Onset Psychiatry Mother DEPRESSION Hypertension Father Cervical Cancer Maternal Grandmother Hypertension Maternal Grandmother Cancer Maternal Grandfather BLADDER Heart Maternal Grandfather [place] & EMPHYSEMA Social History Tobacco Use Smoking [...] 372 QTC Calculation (Bazett) 561 Calculated P [place] 60 Calculated R [place] 81 Calculated T [place] 53 Impression SINUS TACHYCARDIA POSSIBLE LEFT ATRIAL ENLARGEMENT NONSPECIFIC ST AND T WAVE ABNORMALITY ABNORMAL ECG No results found for this or any previous visit (from the past 68462 hour(s)). Instructions Given to Patient: Instructions located in the after visit summary. Patient given verbal and written preop instructions and voices comprehension and compliance. SIGNATURE: Radha Neri APRN.EVP HEAD OF [employer] EXPERIENCE STRATEGY PATIENT NAME: Pat Knight DATE: August 17, 2023 TIME: 8:56 AM PAGER/CONTACT #: documented in this encounter [facility] 08-12-2023 Miscellaneous Notes Spoke with pt and information listed below given. Pt verbalizes understanding. Amber Minaya LPN Left VM instructing patient to return call to receive results. Jodi Brasher MA Please notify positive for flu B Typically course is 5-7 days Push fluids Continue with plan as discussed during visit documented in this encounter [facility] 08-11-2023 Miscellaneous Notes August 11, 2023 [...] plan. TIKA Degroot documented in this encounter [facility] 08-11-2023 Instructions Tori Jc - 08/11/2023 [...] you press the inhaler. Ask your health pet care attendant for more information on these devices. documented in this encounter [facility] 08-11-2023 History of Present illness Narrative [...] & curettage,TAB ESOPHAGOGASTRODUODENOSCOPY TRANSORAL DIAGNOSTIC 11/01/[address] [facility] inpt H-pylori negative LIG/TRNSXJ FLP TUBE ABDL/VAG APPR UNI/BI 04/09/2006 Tubal ligation MYRINGOTOMY ASPIR&/EUSTACHIAN TUBE NFLTJ ANES 1994 Myringotomy/tubes OOPHORECTOMY PARTIAL/TOTAL UNI/BI left TONSILLECTOMY PRIMARY/SECONDARY <AGE 12 1987 Tonsillectomy ALLERGIES Pamprin Multi-Symptom [Bnmxpogsbzfvg-Fnmfuvjy-Hupdabs], Buspar [Buspirone], Codeine, Lamotrigine, Nitrofurantoin Macrocrystal, and [...] Cancer Maternal Grandfather BLADDER Heart Maternal Grandfather [place] & EMPHYSEMA Social History Tobacco Use Smoking [...] - Prednisone Taper TIKA Degroot TEACHING PROVIDER (Physician/PA/DIETITIAN CONSULTANT) NOTE OF PERSONAL INVOLVEMENT IN CARE: I have personally seen and examined the patient and performed the medical decision-making components. I have reviewed the Advanced Practice Registered Nurse (DIETITIAN CONSULTANT) Student's documentation and verified the findings in the note as written. Any additions or changes are noted in bold/italics. Signature: Pennie Clemente Date: 08/11/2023 Time: 9:18 AM Electronically signed by Pennie Clemente APRN.EVP HEAD OF [employer]ATE[employer] at 08/11/2023 9:21 AM EST documented in this encounter [facility] 08-09-2023 Note HNO ID: [id number] Author: LOUIS VALENCIA MD Service: ? Author [...] negative Drop arm test: negative Biceps/joss Signs [place]'s test: positive Clicking/popping: positive Speed's test: positive [...] AND Elbow Surgeon Department of Orthopaedic Surgery [facility] 08-09-2023 History of Present illness Narrative PAIN [...] negative Drop arm test: negative Biceps/joss Signs [place]'s test: positive Clicking/popping: positive Speed's test: positive [...] & Elbow Surgeon Department of Orthopaedic Surgery [facility] documented in this encounter [facility] 08-05-2023 History of Present illness Narrative [...] activity was identified. 08/05/2023 by Sam Khan APRN.EVP HEAD OF [employer]PER[employer]ENCE STRATE[employer] Portions of this note have been entered [...] Khan APRN-LUIS DANIEL documented in this encounter [facility] 08-01-2023 Miscellaneous Notes Patient returned call and went over notes from Dr Norman with understanding. Patient said she had to reschedule her appt due to being ill and moved to 08/09/[address] Valencia. Scheduled appt with MATERIALS PLANNING ANALYST for tomorrow morning at 740 am. Left [...] Provider: MAILE NORMAN MD Pharmacy verified in [facility] Patient has been identified by name and [...] advise. Pat Rowell documented in this encounter [facility] 08-01-2023 History of Present illness Narrative This note was created using [employer]. Subjective Pat Knight is a 43 year [...] No vomiting or diarrhea. Has been taking smim-kde-wvngeom medication with minimal improvement. No other complaint. [...] & curettage,TAB ESOPHAGOGASTRODUODENOSCOPY TRANSORAL DIAGNOSTIC 11/01/[address] [facility] inpt H-pylori negative LIG/TRNSXJ FLP TUBE ABDL/VAG APPR UNI/BI 04/09/2006 Tubal ligation MYRINGOTOMY ASPIR&/EUSTACHIAN TUBE NFLTJ ANES 1994 Myringotomy/tubes OOPHORECTOMY PARTIAL/TOTAL UNI/BI left TONSILLECTOMY PRIMARY/SECONDARY <AGE 12 1988 Tonsillectomy ALLERGIES Pamprin Multi-Symptom [Dgisbtqvvlkdy-Ocwgtnwj-Rggpact], Buspar [Buspirone], Codeine, Lamotrigine, Nitrofurantoin Macrocrystal, and [...] Cancer Maternal Grandfather BLADDER Heart Maternal Grandfather [place] & EMPHYSEMA Social History Tobacco Use Smoking [...] evaluation. SAAD Gamez documented in this encounter [facility] 06-16-2023 History of Present illness Narrative Antonio Rios MD Department of Orthopaedics [facility] [address] [place] [address] Dept: [phone] Dept June 16, 2023 CHIEF COMPLAINT: Pain [...] her shoulder. She had an MRI at [facility] but did not bring it. States it [...] DATE OF EXAM: Mar 11 2023 3:01PM [facility] 0242 - MRI SHOULDER WO/W IVCON [...] Cancer Maternal Grandfather BLADDER Heart Maternal Grandfather MN & EMPHYSEMA Social History: Social History Tobacco [...] medications for this visit. Allergies: Pamprin Multi-Symptom [Jkmbeyctwjmtj-Swaoucto-Hbvobrs], Buspar [Buspirone], Codeine, Lamotrigine, Nitrofurantoin Macrocrystal, and [...] via [place] mail. Charles Elliott [address] [facility] [address] Maile Norman MD [address] [facility] [address] Antonio Rios MD documented in this encounter [facility] 05-25-2023 Miscellaneous Notes PDMP website checked and validated. All prescriptions have been APPROPRIATELY filled. No suspicious activity was identified. 05/25/2023 by Sam Khan APRN.EVP HEAD OF [employer]PERIENCE STRATE[employer] Patient has been identified by name and [...] Sharmin Monge LPN. documented in this encounter [facility] 05-16-2023 Miscellaneous Notes Message left on voicemail to call office for update. Karen Shore LPN documented in this encounter [facility] 05-13-2023 History of Present illness Narrative POPULATION HEALTH NAVIGATION OUTREACH Action/FYI Pt scheduled Patient Identified by Name and : YES, via phone Outreach Outcome/Action Spoke to patient / parent / legal guardian: Patient scheduled Did you use a PCP flex slot to schedule this appointment? No Reason for Outreach Care Gap or Scheduling/Wellness visits Payer: Payor: [place]ICA[place] / Plan: [facility] MEDICAID / Product Type: Medicaid / [...] 2023 3:37 PM documented in this encounter [facility] 05-12-2023 Miscellaneous Notes See other refill [...] Britt Murray LPN documented in this encounter [facility] 05-12-2023 Miscellaneous Notes Pain management visit [...] Aline Melvin RN documented in this encounter [facility] 05-12-2023 Miscellaneous Notes The referral to Orthopaedics for Chronic right shoulder pain, Labral tear of shoulder, degenerative, right has been submitted via the [facility] Internal Referral Request form on the [facility] Appointment Portal. Confirmation # [id number] Kimberly Crowe documented in this encounter [facility] 05-12-2023 Note HNO ID: [id number] Author: Vince Heck LPN Service: ? Author [...] ideas. The patient is nervous/anxious. [facility] 05-12-2023 History of Present illness Narrative [...] not included. [facility] Today's Date: 05/12/2023 Last Visit: N/A Name: [...] and validated on 05/12/2023 by Charles Elliott APRN.EVP HEAD OF [employer] EXPERIENCE STRATEGY All prescriptions have been APPROPRIATELY filled. No [...] BURSITIS. INTACT ROTATOR CUFF AND GLENOID LABRUM. [employer]: PSCB Transcribe Date/Time: Mar 11 2023 3:11P Dictated by : TYESHA MARX MD This examination was interpreted and the report reviewed and electronically signed by: TYESHA MARX MD on Mar 11 2023 3:15PM EST Results-Findings * * *Final Report* * * DATE OF EXAM: Mar 11 2023 3:01PM [facility] 0242 - MRI SHOULDER WO/W IVCON [...] Medications Interventional Procedures: None Studies: None Functional Episcopalian: NONE Referrals: No additional considerations at present Orthopedics ([phone]) Follow-up: prn with Depending on response to [...] DANIEL Pain Management [facility] documented in this encounter [facility] 05-12-2023 Note HNO ID: [id number] Author: Charles Elliott APRN.LUIS DANIEL Service: ? Author Type: Nurse Practitioner Type: Progress Notes Filed: 05/12/2023 2:29 PM Note Text: [facility] Today's Date: 05/12/2023 Last Visit: N/A [...] and validated on 05/12/2023 by Charles Elliott APRN.EVP HEAD OF [employer] EXPERIENCE STRATEGY All prescriptions have been APPROPRIATELY filled. No [...] R (more content not included)... [facility] 05-05-2023 Miscellaneous Notes Patient returned call [...] Violeta Howard RN documented in this encounter [facility] 05-02-2023 Miscellaneous Notes Patient given results [...] KEITH DIAZ PA-C documented in this encounter [facility] 04-30-2023 History of Present illness Narrative This note was created using [employer]. Subjective Patient presents with: Palpitations: Immunizations: Flu [...] Rick Queen MD documented in this encounter [facility] 04-30-2023 History of Present illness Narrative [...] Pham APRN.LUIS DANIEL documented in this encounter [facility] 04-25-2023 Miscellaneous Notes Spoke with patient. Given message from provider's office. Patient verbalizes understanding. Aline Melvin RN Spoke with Binu/Pharmacist at [facility], states the escripted RX foe [...] Modules accepted: Orders [place] pharmacist @ [facility] calling to say patient brought printed [...] if a new script needs sent. [facility] calling for verbal okay to fill Percocet today. Pharmacist states patient says this was discussed at today's OV. Aline Melvin, RN documented in this encounter [facility] 04-25-2023 Miscellaneous Notes Addended by: SAM KHAN on: 04/25/2023 03:43 PM Modules accepted: Orders documented in this encounter [facility] 04-25-2023 History of Present illness Narrative [...] Would like a referral to ortho at [facility] to discuss options HPI Pat Knight is a 43 year old female. Here today for concerns of a possible UTI. Bladder pain with urination. Also having issues still with her shoulder causing pain. [facility]. Her medications were reviewed [...] Khan APRN-LUIS DANIEL documented in this encounter [facility] 04-25-2023 Instructions Sujatha Simpson LPN - [...] treated. A physician, nurse practitioner or physician recruitment and outreach assistant may treat with a short course of [...] if symptoms resolve. documented in this encounter [facility] 04-11-2023 Miscellaneous Notes Tried calling patient three times, kept getting the busy signal so no message could be left. Left patient a [employer] message regarding this appointment reschedule. documented in this encounter [facility] 03-30-2023 Miscellaneous Notes Patient notified of CBC, voicemail, advised probable viral, monitor symptoms, if worsening to ER, other alarcon should clear in next few days. Follow up with Dr You as needed. Oksana Weldon APRN.CNP documented in this encounter [facility] 03-30-2023 History of Present illness Narrative [...] 2023 8:38 AM documented in this encounter [facility] 03-18-2023 Miscellaneous Notes Noted plans to continue pain med till see pain management per [email or web address] messages between patient and Sam. The following [...] Sharon Sutherland RN documented in this encounter [facility] 03-15-2023 Hospital Discharge instructions Patient Education [...] shoulder or upper arm Fever or chills [phone] [employer]. [address] [place] [address], [place] [address]. All rights reserved. This information is not intended as a substitute for professional medical care. Always follow your healthcare professional's instructions. Follow Up Care 03/15/2023 09:47:09 With:MAILE NORMAN MD Address: [address] [place] [address]- When:2-4 days [facility] 03-15-2023 Note Discharge Instructions Thank you for allowing [facility] to assist you with your healthcare needs. [...] NORMAN MD When Within 2-4 days Where: [address] [place] [address]- Allergies La[employer]tal Pamprin Maximum Pain [...] may report side effects to FDA at 3-562-PSF-1751. What other drugs will affect orphenadrine? Taking orphenadrine with other drugs that make you sleepy or slow your breathing can cause dangerous side effects or . Ask your doctor before taking a sleeping pill, narcotic pain medicine, prescription cough medicine, a muscle relaxer, or medicine for anxiety, depression, or seizures. Other drugs may interact with orphenadrine, including prescription and wtch-sad-gyiwmvg medicines, vitamins, and herbal products. Tell each [...] to ensure that the information provided by [employer]') is accurate, up-to-date, and complete, but no guarantee is made to that effect. Drug information contained herein may be time sensitive. [employer] information has been compiled for use by healthcare practitioners and consumers in the [place] and therefore [employer] does not warrant that uses outside of the [place] are appropriate, unless specifically indicated otherwise. [employer] drug information does not endorse drugs, diagnose patients or recommend therapy. [employer] drug information is an informational resource designed [...] effective or appropriate for any given patient. [employer] does not assume any responsibility for any aspect of healthcare administered with the aid of information [employer] provides. The information contained herein is not intended to cover all possible uses, directions, precautions, warnings, drug interactions, allergic reactions, or adverse effects. If you have questions about the drugs you are taking, check with your doctor, nurse or pharmacist. Copyright 1717-0482 [employer]. Version: 7.01. Revision Date: 02/02/2023. tramadol (TRAM [...] The extended-release form of tramadol is for ekrllb-bhz-nrlja treatment of pain. This form of tramadol [...] may report side effects to FDA at 8-205-LVF-9273. What other drugs will affect tramadol? You [...] drugs may affect tramadol, including prescription and olzb-msd-uolzosi medicines, vitamins, and herbal products. Not all [...] may affect tramadol. This includes prescription and oeya-avt-gffioaz medicines, vitamins, and herbal products. Not all [...] to ensure that the information provided by [employer]') is accurate, up-to-date, and complete, but no guarantee is made to that effect. Drug information contained herein may be time sensitive. [employer] information has been compiled for use by healthcare practitioners and consumers in the [place] and therefore [employer] does not warrant that uses outside of the [place] are appropriate, unless specifically indicated otherwise. [employer]'s drug information does not endorse drugs, diagnose patients or recommend therapy. [facility]'s drug information is an informational resource [...] effective or appropriate for any given patient. [facility] does not assume any responsibility for any aspect of healthcare administered with the aid of information [facility] provides. The information contained herein is not intended to cover all possible uses, directions, precautions, warnings, drug interactions, allergic reactions, or adverse effects. If you have questions about the drugs you are taking, check with your doctor, nurse or pharmacist. Copyright 4360-3162 [facility] [employer]. Version: 24.. Revision Date: 01/28/2023. Education Materials [...] shoulder or upper arm Fever or chills 4518-5397 [employer]. [address] [place] [address]. All rights reserved. This information is not intended as a substitute for professional medical care. Always follow your healthcare professional's instructions. Additional Information VACCINATE! IT SAVES LIVES! Members of the community who have not yet received the COVID-19 vaccine and would like to receive it can visit one of [facility] vaccine clinics. There are many vaccine clinic locations within the [facility]. For locations and available times, please visit [email or web address]/. It is important to note that some COVID mobile vaccine clinics are held outdoors and may be canceled in rainy or stormy conditions. To learn more about pediatric vaccinations (ages 5-11), we invite you to visit the [facility] webpage. [email or web address]/pages/2 557-Ihwrn-Jgywqanhdzb-Frequently-Asked -Questions.html To learn more about the COVID-19 vaccine, we invite you to visit the CDC website for a list of frequently asked questions. https://www.cdc.gov/coronavirus/2019-n cov/vaccines/faq.html [facility] Patient Portal Access Instructions: Stay connected with your healthcare team and access your personal medical information anytime with the [facility] Patient Portal. If you would like a full copy of your medical records please contact the [facility] Medical Records Department Tuesday through Tuesday between 8a.m. and 4:30p.m. Please follow the directions below to access the portal: 1.Access the email account you provided upon [facility] the [facility].2.Look for an invitation email from [facility].3.Open the email and access the invitation link: Accept Invitation to [facility]4.Fill in the required moore to create your [...] you will allow to register on the [facility] Patient Portal for access to your information. You can also access the [facility] Patient Portal on the [employer]. Simply click on "Health Records" under "Health Data" and then click on the [facility] logo. HOW TO SAFELY DISPOSE OF PRESCRIPTION [...] Call your local pharmacy or go to [email or web address]/[email or web address] to find one close to you.3.Make use of household items: Use cat litter or old coffee grounds to dispose medications if other options are not available. Mix your drugs with these household products, seal them in an airtight container and throw it into the garbage. Call [facility]: [phone] to be sure your drugs can be [...] aware that I should contact my doctor. Patient/Button Spindler Signature: _ Date/Time: Relationship to Patient: Witness Name/Signature: Date/Time: [facility] 03-15-2023 Note ORIGINAL EXAMINATION: TWO XRAY [...] Date: 03/15/2023 10:58:13 AM Ordering Provider: LAVONNE [facility] 03-11-2023 History of Present illness Narrative Radiology [...] TIME: 2:25 PM documented in this encounter [facility] 03-07-2023 Miscellaneous Notes Message left on pt's VM with update below. Pt advised to contact PCP office for any questions or concerns. Shanon Lowe RN documented in this encounter [facility] 03-07-2023 Miscellaneous Notes I am just [...] Shanon Lowe RN documented in this encounter [facility] 03-07-2023 Miscellaneous Notes Spoke with patient and she stated that her attorney lawyer is the one that wanted the MRI [...] arthrogram? This can not be completed at [place] if so. Call ext [phone] with Sam's response to above. documented in this encounter [facility] 02-15-2023 History of Present illness Narrative POPULATION HEALTH NAVIGATION OUTREACH Action/[facility] Called pt to schedule an appt [...] 2023 3:19 PM documented in this encounter [facility] 02-08-2023 History of Present illness Narrative SUBJECTIVE Pat Knight is a 43 year old female here today for acute concern. Chief Complaint Patient presents with: Shoulder Injury: of right shoulder and requesting a MRI with contrast. This was a work related injury but due to paperwork issues the claim was closed. Has an workers compensation attorney trying to appeal the decision. Consult: [...] date of the injury. 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 Has done PT. Has seen Dr. Traore with [facility] and Dr. Stapleton with [facility] for orthopaedics. Has had an MRI without contrast, was recommended she needs contrast MRI to better show the issues in the shoulder. Wants to see pain management in the mean time. Has done steroids. On muscle relaxers. Seen in ER at [facility] 01/25 because pain was so bothersome. Workers comp case, case was closed. Working with workers compensation attorney. Her medications were reviewed today and [...] NSAIDs. She is aware that since her [employer] case has been closed that the testing and visit for today may not be covered by [employer] and that there is also a possibility [...] Khan APRN-LUIS DANIEL documented in this encounter [facility] 01-25-2023 Hospital Discharge instructions Patient Education 01/25/2023 13:11:26 ED Pain Management (05/2018)(CUSTOM) WELCOME Pain Management in our Emergency/Acute Care Facility Our staff understands that pain relief is important when someone is hurt or needs emergency care. However, providing ongoing pain relief is often complex. We recommend this be done through your primary health care provider such as your family doctor or plate painter. Because mistakes or misuses of pain [...] show a valid photo ID (like a school boat driver's license) when you check into the [...] or other controlled substance, we check the [place] Automated Rx Reporting system (OARRS) or a [...] or call the [facility] at [phone]. It is against the law to attempt [...] When:2-4 days With:MAILE NORMAN MD Address: [address] [place] [address]- When:2-4 days [facility] Nichobrett Jennings 01-25-2023 Note Discharge Instructions Thank [...] MD When Within 2-4 days Where: [address], [place] [id number]- Allergies LaMICtal Pamprin Maximum Pain codeine Medications [...] may report side effects to FDA at 8-458-JHC-7682. What other drugs will affect cyclobenzaprine? Using [...] drugs may affect cyclobenzaprine, including prescription and tjsi-qjc-jrkngrw medicines, vitamins, and herbal products. Not all [...] to ensure that the information provided by [employer]. ('[employer]') is accurate, up-to-date, and complete, but no guarantee is made to that effect. Drug information contained herein may be time sensitive. [employer] information has been compiled for use by healthcare practitioners and consumers in the [place] and therefore [employer] does not warrant that uses outside of the [place] are appropriate, unless specifically indicated otherwise. [employer] drug information does not endorse drugs, diagnose patients or recommend therapy. [employer] drug information is an informational resource designed [...] effective or appropriate for any given patient. [employer] does not assume any responsibility for any aspect of healthcare administered with the aid of information [employer] provides. The information contained herein is not intended to cover all possible uses, directions, precautions, warnings, drug interactions, allergic reactions, or adverse effects. If you have questions about the drugs you are taking, check with your doctor, nurse or pharmacist. Copyright 1951-5302 [employer]. Version: 5.01. Revision Date: 03/22/2018. acetaminophen and [...] may report side effects to FDA at 0-301-YBK-3334. What other drugs will affect acetaminophen and [...] affect acetaminophen and oxycodone, including prescription and flzp-fsk-opiwyrn medicines, vitamins, and herbal products. Not all [...] to ensure that the information provided by [employer] ('[employer]') is accurate, up-to-date, and complete, but no guarantee is made to that effect. Drug information contained herein may be time sensitive. [employer] information has been compiled for use by healthcare practitioners and consumers in the [place] and therefore [employer] does not warrant that uses outside of the [place] are appropriate, unless specifically indicated otherwise. [employer]'s drug information does not endorse drugs, diagnose patients or recommend therapy. [employer] drug information is an informational resource designed [...] effective or appropriate for any given patient. [employer] does not assume any responsibility for any aspect of healthcare administered with the aid of information [employer] provides. The information contained herein is not intended to cover all possible uses, directions, precautions, warnings, drug interactions, allergic reactions, or adverse effects. If you have questions about the drugs you are taking, check with your doctor, nurse or pharmacist. Copyright 2856-9606 [employer]. Version: 20.03. Revision Date: 08/01/2020. Education Materials WELCOME Pain Management in our Emergency/Acute Care Facility Our staff understands that pain relief is important when someone is hurt or needs emergency care. However, providing ongoing pain relief is often complex. We recommend this be done through your primary health care provider such as your family doctor or plate painter. Because mistakes or misuses of pain [...] show a valid photo ID (like a school boat driver's license) when you check into the [...] or other controlled substance, we check the [place] Automated Rx Reporting system (OARRS) or a [...] or call the [facility] at [phone]. It is against the law to attempt [...] to receive it can visit one of [facility] vaccine clinics. There are many vaccine clinic locations within the [facility]. For locations and available times, please visit www.[email or web address].[place].gov/. It is important to note that some COVID mobile vaccine clinics are held outdoors and may be canceled in rainy or stormy conditions. To learn more about pediatric vaccinations (ages 5-11), we invite you to visit the [facility] webpage. [email or web address]/pages/[email or web address] 843-Pmbkc-Qhkltlkbydu-Frequently-Asked -Questions.html To learn more about the COVID-19 vaccine, we invite you to visit the CDC website for a list of frequently asked questions. https://www.cdc.gov/coronavirus/2019-n cov/vaccines/faq.html [facility] Patient Portal Access Instructions: Stay connected with your healthcare team and access your personal medical information anytime with the [facility] Patient Portal. If you would like a full copy of your medical records please contact the [facility] Medical Records Department Tuesday through Tuesday between 8a.m. and 4:30p.m. Please follow the directions below to access the portal: 1.Access the email account you provided upon registration to the hospital.2.Look for an invitation email from [facility].3.Open the email and access the invitation link: Accept Invitation to [facility]4.Fill in the required moore to create your [...] you will allow to register on the [facility] Patient Portal for access to your information. You can also access the [facility] Patient Portal on the [employer]. Simply click on "Health Records" under "Health [...] Call your local pharmacy or go to [email or web address]/[email or web address] to find one close to you.3.Make use of household items: Use cat litter or old coffee grounds to dispose medications if other options are not available. Mix your drugs with these household products, seal them in an airtight container and throw it into the garbage. Call [facility]: [phone] to be sure your drugs can be [...] aware that I should contact my doctor. Patient/Button Spindler Signature: _ Date/Time: Relationship to Patient: Witness Name/Signature: Date/Time: [facility] 01-10-2023 Miscellaneous Notes Appt. Pt called [...] racing heart. Protocols used: Anxiety and Panic Xmnpgc-DEKQA-AN documented in this encounter [facility] 01-10-2023 History of Present illness Narrative This note was created using [employer]. Subjective Pat Knight is a 42 year [...] Maile Norman MD documented in this encounter [facility] 12-07-[address] Mccloud should [...] for pain management- and their phone # [phone]. Phoned patient back and given phone # for . Yen Jo LPN Left message for patient to return call. Charles Garcia Ma ----- Message from Arnie Carrasco MD sent at 12/06/2022 12:35 PM EDT ----- Xray of her sacrum/coccyx is normal. Continue treatment as discussed in office. documented in this encounter [facility] 12-01-2022 History of Present illness Narrative [...] 2022 2:00 PM documented in this encounter [facility] 12-01-2022 History of Present illness Narrative [...] Temporomandibular joint disorders, unspecified ALLERGIES Pamprin Multi-Symptom [Bgxvpdqjjadov-Zuwrgdmm-Wlzrxbv], Buspar [Buspirone], Codeine, Lamotrigine, Nitrofurantoin Macrocrystal, and [...] which included preparing to see the patient, abjn-jc-nirn patient care, completing clinical documentation, obtaining and/or reviewing separately obtained history, performing a medically appropriate examination, counseling and educating the patient/family/caregiver, and ordering medications, tests, or procedures. documented in this encounter [facility] 12-01-2022 Miscellaneous Notes Reviewed. Gayla Ayala [...] Shanon Lowe RN documented in this encounter [facility] 09-17-2022 Miscellaneous Notes Patient notified of [...] panic feeling. [facility]. Please advise. documented in this encounter [facility] 09-09-2022 History of Present illness Narrative [...] <AGE 14 1985 Tonsillectomy ALLERGIES Pamprin Multi-Symptom [Rgvfxejcwgmgw-Nlxxmtxq-Hslstps], Buspar [Buspirone], Codeine, Lamotrigine, Nitrofurantoin Macrocrystal, and [...] Cancer Maternal Grandfather BLADDER Heart Maternal Grandfather [place] & EMPHYSEMA Social History Tobacco Use Smoking [...] Pennie Clemente APRN.CNP documented in this encounter [facility] 09-09-2022 Instructions Pennie Clemente APRN.CNP - [...] to your local emergency facility: Notify the needle felt making machine operator that you are seeking care [...] concerning to you. documented in this encounter [facility] 09-08-2022 Miscellaneous Notes Noted. 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 Advised to go back to express care for evaluation may need COVID and influenza testing done. Patient said she may go back a little later or first thing morning. documented in this encounter [facility] 08-11-2022 Miscellaneous Notes Pt already received [...] nicotine patches and gum called into [facility] in [place] for her. She state she will need high dose of the patches. Please call Pt back and advise. documented in this encounter [facility] 07-18-2022 History of Present illness Narrative [...] <AGE 14 1985 Tonsillectomy ALLERGIES Pamprin Multi-Symptom [Jcrtogutnfvbr-Ougpqpdy-Kumgche], Buspar [Buspirone], Codeine, Lamotrigine, Nitrofurantoin Macrocrystal, and Promethazine-Phenylephrine MEDICATIONS acetaminophen (TYLENOL) 325 mg tablet Take 650 mg by mouth every 6 hours as needed. traZODone (DESYREL) 100 mg tablet Take 1 tablet by mouth daily at bedtime. FAMILY HISTORY Problem Relation Age of Onset Psychiatry Mother DEPRESSION Cervical Cancer Maternal Grandmother Hypertension Maternal Grandmother Cancer Maternal Grandfather BLADDER Heart Maternal Grandfather MN & EMPHYSEMA Social History Tobacco Use Smoking [...] Kimberly Rodriguez APRN.CNP documented in this encounter [facility] 06-01-2022 Miscellaneous Notes 05/31/2022 Bonita Bajwa Good morning, Reached out to patient to get her scheduled, patient states that she is already scheduled for this at [facility]. Thank you, Bonita Email sent to the [facility] requesting an US guided breast biopsy for Pat. Rosa M Mercado RN documented in this encounter [facility] 05-26-2022 History of Present illness Narrative FOLLOW UP VISIT NAME: Pat Knight [facility] NO.: [id number] DATE OF SERVICE: 05/25/2022 : 1980 REFERRING [...] and ultrasound on May 12, 2022 at [facility] which demonstrated: Ultrasound-a palpable abnormality listed as [...] biopsy. I asked for the images from [facility] to be noted in the [facility] system. The patient returns today for follow-up [...] get the proper images loaded in the [facility] system. Given the patient's anxiety and the fact that I will be out of the office for the next week I will attempt to have the biopsy performed by the breast radiologist as soon as possible in the [facility] system. Diagnoses: (N63.10) Mass of right breast, unspecified quadrant (primary encounter diagnosis) Return to Clinic: The patient is instructed to follow-up with me as needed. Kuldeep Ellis MD documented in this encounter [facility] 05-13-2022 History of Present illness Narrative [...] and ultrasound on May 12, 2022 at [facility] which demonstrated: Ultrasound-a palpable abnormality listed as [...] medications for this visit. ALLERGIES: Pamprin Multi-Symptom [Cwmikkluphsup-Wnkhrfar-Rxzoitv], Buspar [Buspirone], Codeine, Lamotrigine, Nitrofurantoin Macrocrystal, and [...] Cancer Maternal Grandfather BLADDER Heart Maternal Grandfather MN & EMPHYSEMA REVIEW OF SYMPTOMS: The review [...] not have the imaging from [facility] unfortunately today. The area that I [...] Kuldeep Ellis MD documented in this encounter [facility] 05-13-2022 Nurse Note REVIEW OF SYSTEMS: [...] M Mercado RN documented in this encounter [facility] 05-13-2022 Miscellaneous Notes Patient calling asking about breast ultrasound results. Went over results, notes below from Dr Norman with understanding. Assisted with transfer to daylight driller to get Gen surgery appt set up. Order filed. Biopsy of lump recommended. Pt completed diagnostic mammogram and ultrasound. They are in scanned documents. Please review. documented in this encounter [facility] 05-11-2022 Miscellaneous Notes Order have been faxed to [facility] at this time and they will call her to schedule appointment. Pt called and is notified of providers message and instructions. Pt voices understanding. Pt asking if order can be sent to [facility]. Faxed orders to [phone]. Otilia Douglas RN New order signed, please send, thanks!! Since she hasn't had a mammogram before [facility] wants a diagnostic bilateral mammogram and us of the right breast.(This order is already in place.) Please let her know that unfortunately there is a long wait time for breast imaging. If she prefers she can check and see if she is able to get in sooner to do it somewhere else like [facility] or [facility]. With her having the issues it would [...] message on voicemail. documented in this encounter [facility] 05-07-2022 Instructions Karen Gaspar APRN.CNS - 05/07/2022 11:39 AM EST documented in this encounter 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 Insomnia, unspecified type - ICD9: [...] ICD9: V72.31, ICD10: Z01.419 - CONSULT TO COMPENSATION SUPERVISOR Did not complete labs today - endorse complete Scheduled mammogram, no other visit, stated needed to leave. Karen Gaspar APRN.DESIGN SUPERVISOR Medical Decision Making: Problems: Low: Acute, uncomplicated illness or injury, 2+ self-limited or minor problems and Stable chronic illness Data: Unique test(s) ordered: 2 Risk: Moderate: Drug management Medical Decision Making Level: 3 - Low documented in this encounter [facility] 04-20-2022 Miscellaneous Notes Pt requesting refill. JESUS: 05/12/21 NOV: 05/07/22 Last Refill: 03/05/22 Britt Murray LPN documented in this encounter [facility] 04-12-2022 History of Present illness Narrative POPULATION HEALTH NAVIGATION OUTREACH Action/FYI Left voicemail Pt identified by name and : NO Outreach Outcome/Action Unable to reach patient: Left message [employer] message sent Did you use a PCP flex slot to schedule this appointment? No Reason for Outreach Care Gap or Scheduling/Wellness visits Payer: Payor: [place] MEDICAID / Plan: [facility] MEDICAID / Product Type: Medicaid / [...] 2022 12:02 PM documented in this encounter [facility] 03-16-2022 History of Present illness Narrative [...] 2022 8:36 AM documented in this encounter [facility] 03-16-2022 History of Present illness Narrative [...] & curettage,TAB ESOPHAGOGASTRODUODENOSCOPY TRANSORAL DIAGNOSTIC 11/01/[address] [facility] inpt H-pylori negative LIG/TRNSXJ FLP TUBE ABDL/VAG APPR UNI/BI 04/09/2006 Tubal ligation MYRINGOTOMY ASPIR&/EUSTACHIAN TUBE NFLTJ ANES 1994 Myringotomy/tubes OOPHORECTOMY PARTIAL/TOTAL UNI/BI left TONSILLECTOMY PRIMARY/SECONDARY <AGE 12 1987 Tonsillectomy ALLERGIES Pamprin Multi-Symptom [Tuonjepzvvkeh-Upyphzft-Qdgfiti], Buspar [Buspirone], Codeine, Lamotrigine, Nitrofurantoin Macrocrystal, and [...] Cancer Maternal Grandfather BLADDER Heart Maternal Grandfather [place] & EMPHYSEMA Social History Tobacco Use Smoking [...] Pennie Clemente APRN.CNP documented in this encounter [facility] 03-16-2022 Instructions Pennie Clemente APRN.CNP - 03/16/2022 8:30 AM EDT ASSESSMENT/PLAN: 1. Splinter of finger - ICD9: 915.6, ICD10: S60.459A - XR DIGIT GENERAL 3V FRONTAL/LAT/OBL RIGHT - CONSULT PANEL TO ORTHOPAEDICS - warm water with epsom salt soaks 2-3 times daily, 15 minutes per time. Pennie Clemente APRN.CNP documented in this encounter [facility] 03-09-2022 Miscellaneous Notes VM not set [...] Violeta Howard RN documented in this encounter [facility] 01-20-2022 History of Present illness Narrative [...] <AGE 14 1985 Tonsillectomy ALLERGIES Pamprin Multi-Symptom [Qpxgruruxqlwn-Pxovjbax-Yursefd], Buspar [Buspirone], Codeine, Lamotrigine, Nitrofurantoin [place], and [...] Cancer Maternal Grandfather BLADDER Heart Maternal Grandfather [place] & EMPHYSEMA Social History Tobacco Use Smoking [...] or bulging. Nose: Congestion present. Mouth/Throat: Lips: Smiley. Mouth: Mucous membranes are moist. Pharynx: Oropharynx [...] of care. This note was generated using [employer] software. It may contain errors in wording, punctuation, or spelling. Galo Bernal APRN.LUIS DANIEL documented in this encounter [facility] 01-20-2022 Instructions Galo Bernal APRN.LUIS DANIEL [...] concerning to you. documented in this encounter [facility] 01-05-2022 History of Present illness Narrative [...] plan of care will be seen at [facility]. Galo Bernal APRN.CNP documented in this encounter [facility] 12-18-2021 Miscellaneous Notes Pt called I asking for her blood type. She had a type and screen done in 08-10-05. Mailed to pt. Amber Minaya LPN documented in this encounter [facility] 03-09-2021 History of Present illness Narrative [...] 2021 9:50 AM documented in this encounter [facility] 06-15-2016 History of Past i llness [...] of this encounter (statuses as of 12/22/2021) [facility] History of Past illness Narrative* Problem [...] of this encounter (statuses as of 01/05/2022) [facility] of Past illness Narrative* Problem [...] of this encounter (statuses as of 01/20/2022) [facility] History of Past illness Narrative* Problem [...] of this encounter (statuses as of 03/08/2022) [facility] History of Past illness Narrative* Problem [...] of this encounter (statuses as of 03/09/2022) [facility] of Past illness Narrative* Problem [...] of this encounter (statuses as of 03/16/2022) [facility] of Past illness Narrative* Problem [...] of this encounter (statuses as of 04/12/2022) [facility] of Past illness Narrative* Problem [...] of this encounter (statuses as of 04/20/2022) [facility] of Past illness Narrative* Problem [...] of this encounter (statuses as of 05/07/2022) [facility] of Past illness Narrative* Problem [...] of this encounter (statuses as of 05/11/2022) [facility] of Past illness Narrative* Problem [...] of this encounter (statuses as of 05/13/2022) [facility] of Past illness Narrative* Problem [...] of this encounter (statuses as of 05/26/2022) [facility] of Past illness Narrative* Problem [...] of this encounter (statuses as of 05/31/2022) [facility] of Past illness Narrative* Problem [...] of this encounter (statuses as of 06/01/2022) [facility] of Past illness Narrative* Problem [...] of this encounter (statuses as of 07/18/2022) [facility] of Past illness Narrative* Problem [...] of this encounter (statuses as of 08/11/2022) [facility] of Past illness Narrative* Problem [...] of this encounter (statuses as of 09/09/2022) [facility] of Past illness Narrative* Problem [...] of this encounter (statuses as of 09/09/2022) [facility] of Past illness Narrative* Problem [...] of this encounter (statuses as of 09/17/2022) [facility] of Past illness Narrative* Problem [...] of this encounter (statuses as of 12/01/2022) [facility] of Past illness Narrative* Problem [...] of this encounter (statuses as of 12/02/2022) [facility] Narrative* Problem [...] of this encounter (statuses as of 01/11/2023) [facility] of [facility] Narrative* Problem [...] of this encounter (statuses as of 02/09/2023) [facility] Narrative* Problem [...] of this encounter (statuses as of 02/14/2023) [facility] Narrative* Problem [...] of this encounter (statuses as of 02/14/2023) [facility] Narrative* Problem [...] of this encounter (statuses as of 02/16/2023) [facility] Narrative* Problem [...] of this encounter (statuses as of 03/07/2023) [facility] Narrative* Problem [...] of this encounter (statuses as of 03/07/2023) [facility] Narrative* Problem [...] of this encounter (statuses as of 03/08/2023) [facility] Narrative* Problem [...] of this encounter (statuses as of 03/14/2023) [facility] Narrative* Problem [...] of this encounter (statuses as of 03/19/2023) [facility] Past illness Narrative* Problem [...] of this encounter (statuses as of 04/01/2023) [facility] Narrative* Problem [...] of this encounter (statuses as of 04/11/2023) [facility] Narrative* Problem [...] of this encounter (statuses as of 04/26/2023) [facility] illness Narrative* Problem [...] of this encounter (statuses as of 04/26/2023) [facility] Narrative* Problem [...] of this encounter (statuses as of 05/01/2023) [facility] Narrative* Problem [...] of this encounter (statuses as of 05/01/2023) [facility] Narrative* Problem [...] of this encounter (statuses as of 05/01/2023) [facility] Narrative* Problem [...] of this encounter (statuses as of 05/03/2023) [facility] Narrative* Problem [...] of this encounter (statuses as of 05/05/2023) [facility] Narrative* Problem [...] of this encounter (statuses as of 05/12/2023) [facility] Narrative* Problem [...] of this encounter (statuses as of 05/12/2023) [facility] Narrative* Problem [...] of this encounter (statuses as of 05/12/2023) [facility] Narrative* Problem [...] of this encounter (statuses as of 05/13/2023) [facility] Narrative* Problem [...] of this encounter (statuses as of 05/13/2023) [facility] Narrative* Problem [...] of this encounter (statuses as of 05/16/2023) [facility] Narrative* Problem [...] of this encounter (statuses as of 05/26/2023) [facility] Narrative* Problem [...] of this encounter (statuses as of 06/17/2023) [facility] Narrative* Problem [...] of this encounter (statuses as of 08/01/2023) [facility] Narrative* Problem [...] of this encounter (statuses as of 08/02/2023) [facility] Narrative* Problem [...] of this encounter (statuses as of 08/05/2023) [facility] Narrative* Problem [...] of this encounter (statuses as of 08/09/2023) [facility] Narrative* Problem [...] of this encounter (statuses as of 08/10/2023) [facility] Narrative* Problem [...] of this encounter (statuses as of 08/11/2023) [facility] Narrative* Problem [...] of this encounter (statuses as of 08/11/2023) [facility] Narrative* Problem [...] of this encounter (statuses as of 08/12/2023) [facility] Narrative* Problem [...] of this encounter (statuses as of 08/18/2023) [facility] illness Narrative* Problem [...] of this encounter (statuses as of 08/23/2023) [facility] illness Narrative* Problem [...] of this encounter (statuses as of 09/01/2023) [facility] Narrative* Problem [...] of this encounter (statuses as of 09/02/2023) [facility] Narrative* Problem [...] of this encounter (statuses as of 09/05/2023) [facility] Narrative* Problem [...] of this encounter (statuses as of 09/05/2023) [facility] Narrative* Problem [...] of this encounter (statuses as of 09/09/2023) [facility] Narrative* Problem [...] of this encounter (statuses as of 09/13/2023) [facility] illness Narrative* Problem [...] of this encounter (statuses as of 09/16/2023) [facility] Narrative* Problem [...] of this encounter (statuses as of 09/16/2023) [facility] Narrative* Problem [...] of this encounter (statuses as of 09/19/2023) [facility] Narrative* Problem [...] of this encounter (statuses as of 09/27/2023) [facility] illness Narrative* Problem [...] of this encounter (statuses as of 09/27/2023) [place] [address]-20-2016 History of Past illness Narrative* Problem Noted [...] of this encounter (statuses as of 10/03/2023) [facility] Narrative* Problem [...] of this encounter (statuses as of 10/04/2023) [facility] illness Narrative* Problem [...] of this encounter (statuses as of 10/11/2023) [facility] Narrative* Problem [...] of this encounter (statuses as of 10/12/2023) [facility] Past illness Narrative* Problem [...] of this encounter (statuses as of 10/14/2023) [facility] + Plan note No data available for this section [facility] Evaluation note* Diagnosis Jaw pain- Primary History of tooth extraction, unspecified edentulism class documented in this encounter [facility] Work Phone: Evaluation note* Diagnosis Procedure not carried out- Primary Procedure not carried out for other reasons documented in this encounter [facility] note* Diagnosis Viral illness- Primary Unspecified viral infection, in conditions classified elsewhere and of unspecified site documented in this encounter [facility] note* Diagnosis Encounter for screening mammogram for breast cancer [facility] Diagnosis Encounter for long-term current use of medication- Primary Insomnia, unspecified type documented in this encounter [facility] note* Diagnosis Splinter of finger- Primary [facility] Diagnosis Insomnia, unspecified type [facility] Diagnosis Insomnia, unspecified type- Primary Encounter for immunization Need for other specified prophylactic vaccination against single bacterial disease Screening for cervical cancer Screening for malignant neoplasm of the cervix Breast pain Mastodynia Mass of lower inner quadrant of right breast Chronic right shoulder pain Pain in joint, shoulder region Encounter for well woman exam with routine gynecological exam documented in this encounter [facility] note* Diagnosis Breast pain- Primary Mastodynia Mass of lower inner quadrant of right breast Encounter for screening mammogram for breast cancer [facility] Diagnosis Mass of right breast, unspecified quadrant- Primary Mass of right breast, unspecified quadrant [facility] Diagnosis Mass of right breast, unspecified quadrant [facility] Diagnosis Mass of right breast, unspecified quadrant- Primary documented [facility] Diagnosis Abnormal finding on radiological examination of breast- Primary Other (abnormal) findings on radiological examination of breast documented [facility] this [facility] Diagnosis Sore throat- Primary Acute pharyngitis URI, acute Acute upper respiratory infections of unspecified site [facility] Diagnosis Viral URI with cough- Primary Acute upper respiratory infections of unspecified site [facility] Diagnosis Panic attacks Panic 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 [facility] Diagnosis Coccydynia- Primary Other disorder of coccyx [facility] Diagnosis Panic attacks Panic 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 [facility] Diagnosis Tear of right glenoid labrum, subsequent encounter- Primary Chronic right shoulder pain Pain in joint, shoulder region [facility] Diagnosis Panic attacks Panic 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 [facility] Diagnosis Encounter for screening mammogram for breast cancer [facility] Diagnosis Tear of right glenoid labrum, subsequent encounter Chronic right shoulder pain Pain in joint, shoulder region [facility] Diagnosis Tear of right glenoid labrum, subsequent encounter Chronic right shoulder pain Pain in joint, shoulder region [facility] Diagnosis Tear of right glenoid labrum, subsequent encounter Chronic right shoulder pain Pain in joint, shoulder region [facility] Diagnosis Acute cystitis with hematuria- Primary Acute cystitis Tear of right glenoid labrum, subsequent encounter Chronic right shoulder pain Pain in joint, shoulder region [facility] Diagnosis Tear of right glenoid labrum, subsequent encounter Chronic right shoulder pain Pain in joint, shoulder region [facility] Diagnosis Tachycardia- Primary Tachycardia, unspecified [...] of the cervix [facility] Diagnosis Dysuria- Primary [facility] Tear of right glenoid labrum, subsequent encounter Chronic right shoulder pain Pain in joint, shoulder region [facility] Chronic right shoulder pain- Primary Pain in joint, shoulder region Labral tear of shoulder, degenerative, right [facility] Diagnosis Tear of right glenoid labrum, subsequent encounter Chronic right shoulder pain Pain in joint, shoulder region [facility] Diagnosis Coccydynia- Primary Other disorder of coccyx [facility] Diagnosis Tear of right glenoid labrum, subsequent encounter Chronic right shoulder pain Pain in joint, shoulder region [facility] Diagnosis Chronic right shoulder pain Pain in joint, shoulder region Labral tear of shoulder, degenerative, right [facility] Diagnosis Flu-like symptoms- Primary Other general symptoms URI, acute Acute upper respiratory infections of unspecified site [facility] Diagnosis Tear of right glenoid labrum, subsequent encounter Chronic right shoulder pain Pain in joint, shoulder region [facility] Diagnosis Tear of right glenoid labrum, subsequent encounter- Primary Chronic right shoulder pain Pain in joint, shoulder region [facility] Diagnosis Biceps tendinitis of right upper extremity- Primary [facility] Diagnosis Bicipital tendinitis of right shoulder- Primary Bicipital tenosynovitis Bicipital tendinitis of right shoulder Bicipital tenosynovitis [facility] Diagnosis Acute cough- Primary Viral bronchitis [...] Other postprocedural status [facility] Diagnosis Post-op pain- Primary Other [...] Primary Bicipital tenosynovitis [facility] Diagnosis Post-op pain Other acute postoperative [...] acute postoperative pain [facility] Encounter for screening mammogram [...] labrum, subsequent encounter [facility]* Diagnosis Pre-op exam Preoperative examination, [...] labrum, subsequent encounter [facility]* Diagnosis Pre-op exam Preoperative examination, unspecified Bicipital tendonitis of right shoulder H/O chronic hepatitis Personal history of other diseases of digestive system Tobacco use disorder Marijuana use Cannabis abuse, unspecified Other migraine without status migrainosus, not intractable Congestive heart failure, unspecified HF chronicity, unspecified heart failure type (HCC) Thrush- Primary Candidiasis of mouth [facility] Diagnosis Pre-op exam Preoperative examination, [...] pain, unspecified chronicity [facility]* Diagnosis Pre-op exam Preoperative examination, [...] therapeutic drug monitoring [facility]* Diagnosis Pre-op exam Preoperative examination, [...] bronchitis Acute cough [facility] Diagnosis Pre-op exam Preoperative examination, unspecified Bicipital tendonitis of right shoulder H/O chronic hepatitis Personal history of other diseases of digestive system Tobacco use disorder Marijuana use Cannabis abuse, unspecified Other migraine without status migrainosus, not intractable Congestive heart failure, unspecified HF chronicity, unspecified heart failure type (HCC) Viral bronchitis Acute bronchitis Acute cough [facility] Acute cough Pre-op exam Preoperative examination, unspecified Bicipital tendonitis of right shoulder H/O chronic hepatitis Personal history of other diseases of digestive system Tobacco use disorder Marijuana use Cannabis abuse, unspecified Other migraine without status migrainosus, not intractable Congestive heart failure, unspecified HF chronicity, unspecified heart failure type (HCC) [facility] Diagnosis Fever, unspecified fever cause [facility] Diagnosis Coccydynia Other disorder of coccyx [facility] Splinter of finger [facility] Diagnosis Pre-op exam Preoperative examination, [...] Other anxiety states [facility] Cough [facility] Diagnosis Pre-op exam Preoperative examination, [...] shoulder region, unspecified [facility]* Diagnosis Pre-op exam Preoperative examination, [...] 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 [facility] Diagnosis Pre-op exam Preoperative examination, unspecified Bicipital tendonitis of right shoulder H/O chronic hepatitis Personal history of other diseases of digestive system Tobacco use disorder Marijuana use Cannabis abuse, unspecified Other migraine without status migrainosus, not intractable Congestive heart failure, unspecified HF chronicity, unspecified heart failure type (HCC) Finger pain, right- Primary Pain in limb [facility] Diagnosis Pre-op exam Preoperative examination, [...] 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 [facility] Diagnosis Pre-op exam Preoperative examination, [...] shoulder region, unspecified [facility]* Diagnosis Pre-op exam Preoperative examination, [...] abuse, subsequent encounter documented in this encounter [facility] note* Diagnosis Pre-op exam Preoperative examination, [...] left upper extremity documented in this encounter [facility] note* Diagnosis Pre-op exam Preoperative examination, unspecified Bicipital tendonitis of right shoulder H/O chronic hepatitis Personal history of other diseases of digestive system Tobacco use disorder Marijuana use Cannabis abuse, unspecified Other migraine without status migrainosus, not intractable Congestive heart failure, unspecified HF chronicity, unspecified heart failure type (HCC) Rash- Primary Rash and other nonspecific skin eruption documented in this encounter [facility] note* Diagnosis Pre-op exam Preoperative examination, [...] left upper extremity documented in this encounter [facility] note* Diagnosis Pre-op exam Preoperative examination, [...] Pain in [facility] Diagnosis Pre-op exam Preoperative examination, unspecified Bicipital tendonitis of right shoulder H/O chronic hepatitis Personal history of other diseases of digestive system Tobacco use disorder Marijuana use Cannabis abuse, unspecified Other migraine without status migrainosus, not intractable Congestive heart failure, unspecified HF chronicity, unspecified heart failure type (HCC) Pain of right hand Pain in limb [facility] Diagnosis Pre-op exam Preoperative examination, [...] shoulder region, unspecified [facility] Diagnosis Pre-op exam Preoperative examination, [...] shoulder region, unspecified [facility] Diagnosis Pre-op exam Preoperative examination, [...] pain, unspecified chronicity [facility] Diagnosis Pre-op exam Preoperative examination, [...] shoulder region, unspecified [facility] Diagnosis Pre-op exam Preoperative examination, [...] shoulder region, unspecified [facility] Diagnosis Pre-op exam Preoperative examination, unspecified Bicipital tendonitis of right shoulder H/O chronic hepatitis Personal history of other diseases of digestive system Tobacco use disorder Marijuana use Cannabis abuse, unspecified Other migraine without status migrainosus, not intractable Congestive heart failure, unspecified HF chronicity, unspecified heart failure type (HCC) Insomnia, unspecified type [facility] Diagnosis Pre-op exam Preoperative examination, [...] female climacteric states documented [facility] Diagnosis Pre-op exam Preoperative examination, [...] shoulder region, unspecified [facility] Diagnosis Pre-op exam Preoperative examination, unspecified Bicipital tendonitis of right shoulder H/O chronic hepatitis Personal history of other diseases of digestive system Tobacco use disorder Marijuana use Cannabis abuse, unspecified Other migraine without status migrainosus, not intractable Congestive heart failure, unspecified HF chronicity, unspecified heart failure type (HCC) Encounter for screening mammogram for breast cancer [facility] Diagnosis Pre-op exam Preoperative examination, [...] left upper extremity [facility] Diagnosis Pre-op exam Preoperative examination, [...] shoulder region, unspecified [facility] Diagnosis Pre-op exam Preoperative examination, [...] Other anxiety states [facility] Diagnosis Pre-op exam Preoperative examination, [...] rotator cuff repair [facility] Diagnosis Pre-op exam Preoperative examination, [...] shoulder region, unspecified [facility] Diagnosis Pre-op exam Preoperative examination, [...] of patient's decision [facility] Diagnosis Pre-op exam Preoperative examination, [...] shoulder region, unspecified [facility] Pre-op exam Preoperative examination, [...] shoulder region, unspecified [facility] Diagnosis Pre-op exam Preoperative examination, [...] rotator cuff repair [facility] Diagnosis Pre-op exam Preoperative examination, [...] Other postprocedural status [facility] Diagnosis Pre-op exam Preoperative examination, [...] region and thigh [facility] Diagnosis Pre-op exam Preoperative examination, [...] pain, unspecified chronicity [facility] Diagnosis Pre-op exam Preoperative examination, [...] rx as needed documented [facility] this [facility] Diagnosis Pre-op exam Preoperative examination, [...] pain, unspecified chronicity [facility] Diagnosis Pre-op exam Preoperative examination, [...] pain, unspecified chronicity [facility] Diagnosis Pre-op exam Preoperative examination, [...] pain, unspecified chronicity [facility] Diagnosis Pre-op exam Preoperative examination, [...] Other postprocedural status [facility] Diagnosis Pre-op exam Preoperative examination, [...] shoulder region, unspecified [facility] Diagnosis Pre-op exam Preoperative examination, [...] Other postprocedural status 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 documented in this encounter [facility] note* Diagnosis Pre-op exam Preoperative examination, [...] extent, subsequent encounter documented in this encounter [facility] note* Diagnosis Pre-op exam Preoperative examination, [...] accident, initial encounter documented in this encounter [facility] note* Diagnosis Pre-op exam Preoperative examination, [...] extent, subsequent encounter [facility] Diagnosis Pre-op exam Preoperative examination, [...] Other postprocedural status documented in this encounter [facility] note* Diagnosis Pre-op exam Preoperative examination, [...] of right shoulder [facility] Diagnosis Pre-op exam Preoperative examination, [...] membrane, left ear documented [facility] Diagnosis Pre-op exam Preoperative examination, [...] of right shoulder [facility] Diagnosis Pre-op exam Preoperative examination, [...] Other postprocedural status documented [facility] Diagnosis Pre-op exam Preoperative examination, [...] pain, unspecified chronicity documented in this encounter [facility] note* Diagnosis Pre-op exam Preoperative examination, [...] Anxiety state, unspecified [facility]* Diagnosis Pre-op exam Preoperative examination, [...] Other postprocedural status documented in this encounter [facility] Discharge instructions* Attachments The following attachments cannot be sent through Care Everywhere. * Dental Surgery: Generic: Post-op (American) [facility] Hospital Discharge instructions No data available for this section [facility] Progress note No data available for this section [facility] Reason for referral (narrative)* Diagnostic Procedure Only (Routine) - Pending Review Specialty Diagnoses / Procedures Referred By Charity menendez Referred To Contact [facility] Diagnoses Encounter for screening mammogram for breast cancer Procedures KEYON SCREENING SCREENING MAMMOGRAPHY BI 2-VIEW BREAST INC CAD Maile Norman MD [address] [place] [address] [facility] [address] [place] [phone] Referral ID Status Reason Start Date Expiration Date Visits Requested Visits Authorized [id number] Pending Review Auto-Generat ed Referral 03/03/2022 04/02/2023 1 1 [facility] for referral (narrative)* Diagnostic Procedure Only (Routine) - Authorized Specialty Diagnoses / Procedures Referred By Charity menendez Referred To Contact [facility] Diagnoses Breast pain Mass of lower inner quadrant of right breast Procedures US BREAST LTD RT US BREAST UNI REAL TIME WITH IMAGE LIMITED Karen Gaspar APRN.DESIGN SUPERVISOR [address] [place] [address] [facility] [address] [place] [address] Referral ID Status Reason Start Date Expiration Date Visits Requested Visits Authorized [id number] Authorized Auto-Generat ed Referral 2 06/06/2023 1 1 * Consult, Test, Treat (Routine) - Authorized Specialty Diagnoses / Procedures Referred By Charity menendez Referred To Contact Diagnoses Encounter for well woman exam with routine gynecological exam Procedures CONSULT TO COMPENSATION SUPERVISOR OFFICE/OUTPATIENT [facility] MDM 60-74 MINUTES Karen Gaspar APRN.DESIGN SUPERVISOR [address] [place] [address] Referral ID Status Reason Start Date Expiration Date Visits Requested Visits Authorized [id number] Authorized PCP Requested Referral Auto-Generate d Referral 2 05/07/2023 1 1 * Diagnostic Procedure Only (Routine) - Authorized Specialty Diagnoses / Procedures Referred By Charity menendez Referred To Contact [facility] Diagnoses Breast pain Mass of lower inner quadrant of right breast Procedures KEYON DIAGNOSTIC RT DIAGNOSTIC MAMMOGRAPHY COMPUTER-AIDED DETCJ UNI Karen Gaspar APRN.DESIGN SUPERVISOR [address] [place] [address] [facility] [address] [place] [address] Referral ID Status Reason Start Date Expiration Date Visits Requested Visits Authorized [id number] Authorized Auto-Generat ed Referral 2 06/06/2023 1 1 * Physical Therapy (Routine) - Pending Review Specialty Diagnoses / Procedures Referred By Charity t Referred To Contact [facility] Diagnoses Chronic right shoulder pain Procedures CONSULT TO PHYSICAL THERAPY PHYSICAL THERAPY EVALUATION HIGH COMPLEX 45 MINS Karen Gaspar APRN.DESIGN SUPERVISOR [address] [place] [address] [facility] [place] [address] [place] [address] Referral ID Status Reason Start Date Expiration Date Visits Requested Visits Authorized [id number] Pending Review Auto-Generat ed Referral 2 05/07/2023 1 1 * Consult, Test, Treat (Routine) - Authorized Specialty Diagnoses / Procedures Referred By Contac t Referred To Contact Orthopedics Diagnoses Chronic right shoulder pain Procedures CONSULT TO ORTHOPAEDICS OFFICE/OUTPATIENT [facility] 60-74 MINUTES Karen Gaspar APRN.CNS [address] [place] [address] Referral ID Status Reason Start Date Expiration Date Visits Requested Visits Authorized [id number] Authorized PCP Requested Referral 2 05/07/2023 1 1 [facility] for referral (narrative)* Diagnostic Procedure Only (Routine) - Pending Review Specialty Diagnoses / Procedures Referred By Contac t Referred To Contact [facility] Diagnoses Breast pain Mass of lower inner quadrant of right breast Procedures KEYON DIAGNOSTIC BILAT DIAGNOSTIC MAMMOGRAPHY COMPUTER-AIDED DETCJ BI Sam Khan APRN.EVP [employer] [address] [place] [address] [facility] [address] [place] [address] Referral ID Status Reason Start Date Expiration Date Visits Requested Visits Authorized [id number] Pending Review Auto-Generat ed Referral 2 06/10/2023 1 1 [facility] for referral (narrative)* Diagnostic Procedure Only (Routine) - Pending Review Specialty Diagnoses / Procedures Referred By Contac t Referred To Contact [facility] Diagnoses Mass of right breast, unspecified quadrant Procedures US BIOPSY BREAST RT BX BREAST W/DEVICE 1ST LESION ULTRASOUND Kuldeep Hoffman MD [address] [place] [address] [facility] [address] [place] [address] Referral ID Status Reason Start Date Expiration Date Visits Requested Visits Authorized [id number] Pending Review Auto-Generat ed Referral 06/25/2023 1 1 [facility] for referral (narrative)* Diagnostic Procedure Only (Routine) - Pending Review Specialty Diagnoses / Procedures Referred By Contac t Referred To Contact [facility] Diagnoses Abnormal finding on radiological examination of breast Procedures US BREAST LTD RT US BREAST UNI REAL TIME WITH IMAGE LIMITED Heidi Marcelino MD [address] [place] [address] [facility] [address] [place] [phone] Referral ID Status Reason Start Date Expiration Date Visits Requested Visits Authorized [id number] Pending Review Auto-Generat ed Referral 05/31/2022 06/30/2023 1 1 * Diagnostic Procedure Only (Routine) - Pending Review Specialty Diagnoses / Procedures Referred By Charity menendez Referred To Contact [facility] Diagnoses Abnormal finding on radiological examination of breast Procedures KEYON DIAGNOSTIC BILAT DIAGNOSTIC MAMMOGRAPHY COMPUTER-AIDED DETCJ BI Heidi Marcelino MD [address] [place] [address] [facility] [address] [place] [phone] Referral ID Status Reason Start Date Expiration Date Visits Requested Visits Authorized [id number] Pending Review Auto-Generat ed Referral 05/31/2022 06/30/2023 1 1 [facility] for referral (narrative)* Diagnostic Procedure Only (Routine) - Closed Specialty Diagnoses / Procedures Referred By Charity t Referred To Contact [facility] Diagnoses Coccydynia Procedures XR SACRUM/COCCYX 3V AP/LAT RADEX SACRUM & COCCYX MINIMUM 2 VIEWS PodlogarGayla DIETITIAN CONSULTANT.EVP [employer] [address] [place] [address] X[facility] Referral ID Status Reason Start Date Expiration Date V isits Requested Visits Authorized [id number] Closed Auto-Generate d Referral 12/01/2022 12/31/2023 1 1 [facility] for referral (narrative)* Diagnostic Procedure Only (Routine) - Pending Review Specialty Diagnoses / Procedures Referred By Charity menendez Referred To Contact [facility] Diagnoses Encounter for screening mammogram for breast cancer Procedures KEYON SCREENING SCREENING MAMMOGRAPHY BI 2-VIEW BREAST INC Maile Garcia MD [address] [place] [address] [facility] [address] [place] [address] Referral ID Status Reason Start Date Expiration Date Visits Requested Visits Authorized [id number] Pending Review Auto-Generat ed Referral 02/09/2023 03/10/2024 1 1 [facility] for referral (narrative)* Diagnostic Procedure Only (Routine) - New Request Specialty Diagnoses / Procedures Referred By Charity menendez Referred To Contact [facility] Diagnoses Encounter for screening mammogram for breast cancer Procedures KEYON SCREENING W TERESITA SCREENING DIGITAL BREAST TOMOSYNTHESIS BI SCREENING MAMMOGRAPHY BI 2-VIEW BREAST INC Maile Garcia MD [address] [place] [address] [facility] [address] [facility] [place] [address] Referral ID Status Reason Start Date Expiration Date Visits Requested Visits Authorized [id number] New Request Auto-Generat ed Referral 01/11/2024 02/09/2025 1 1 [facility] for referral (narrative)* Diagnostic Procedure Only (Routine) - Closed Specialty Diagnoses / Procedures Referred By Charity t Referred To Contact X[facility] IMAGING Diagnoses Coccydynia Procedures XR SACRUM/COCCYX 3V AP/LAT RADEX SACRUM & COCCYX MINIMUM 2 VIEWS Gayla Ayala APRN.EVP [employer] [address] [place] [address] [place] [address] Referral ID Status Reason Start Date Expiration Date V isits Requested Visits Authorized [id number] Closed Auto-Generate d Referral 12/01/2022 12/31/2023 1 1 Electronically signed by Gayla Ayala APRNPrinceEVP [employer] at 12/01/2022 1:56 PM EDT [facility] for referral (narrative)* Diagnostic Procedure Only (Routine) - Closed Specialty Diagnoses / Procedures Referred By Contac t Referred To Contact XR IMAGING Diagnoses Splinter of finger Procedures XR DIGIT GENERAL 3V FRONTAL/LAT/OBL RIGHT RADEX FINGR MINIMUM 2 VIEWS Pennie Clemente APRN.EVP [employer] [address] [place] [address] [place] [address] Referral ID Status Reason Start Date Expiration Date V isits Requested Visits Authorized [id number] Closed Auto-Generate d Referral 03/16/2022 04/15/2023 1 1 [facility] for referral (narrative)* Diagnostic Procedure Only (Urgent) - Closed Specialty Diagnoses / Procedures Referred By Contac t Referred To Contact X[facility] IMAGING Diagnoses Injury of left upper extremity, subsequent encounter Mass of left upper extremity Procedures XR FOREARM GENERAL 2V AP/LAT LEFT RADEX FOREARM 2 VIEWS Karen Gaspar, DIETITIAN CONSULTANT.DESIGN SUPERVISOR [address] [place] [address] [place] [address] Referral ID Status Reason Start Date Expiration Date V isits Requested Visits Authorized [id number] Closed Auto-Generate d Referral 05/10/2024 06/09/2025 1 1 [facility] for referral (narrative)* Diagnostic Procedure Only (Urgent) - New Request Specialty Diagnoses / Procedures Referred By Contac t Referred To Contact X[facility] IMAG[facility] Diagnoses Pain of right hand Procedures XR HAND GENERAL 3V PA/LAT/OBL RIGHT RADEX HAND MINIMUM 3 VIEWS Galo Bernal APRN.CNP [address] [place] [address] [place] [address] Referral ID Status Reason Start Date Expiration Date Visits Requested Visits Authorized [id number] New Request Auto-Generat ed Referral 06/22/2025 1 1 [facility] for referral (narrative)* Diagnostic Procedure Only (Urgent) - Closed Specialty Diagnoses / Procedures Referred By Charity menendez Referred To Contact XR IMAGING Diagnoses Pain of right hand Procedures XR HAND GENERAL 3V PA/LAT/OBL RIGHT RADEX HAND MINIMUM 3 VIEWS Galo Bernal APRN.EVP [employer] [address] [place] [address] [place] [address] Referral ID Status Reason Start Date Expiration Date V isits Requested Visits Authorized [id number] Closed Auto-Generate d Referral 05/23/2024 06/22/2025 1 1 [facility] for referral (narrative)* Diagnostic Procedure Only (Routine) - New Request Specialty Diagnoses / Procedures Referred By Charity menendez Referred To Contact [facility] Diagnoses Encounter for screening mammogram for breast cancer Procedures KEYON SCREENING W TERESITA SCREENING DIGITAL BREAST TOMOSYNTHESIS BI SCREENING MAMMOGRAPHY BI 2-VIEW BREAST INC Cecile Corbett APRN.EVP [employer] [address] [place] [address] [facility] [address] [place] [address] Referral ID Status Reason Start Date Expiration Date Visits Requested Visits Authorized [id number] New Request Auto-Generat ed Referral 07/09/2024 08/08/2025 1 1 [facility] for visit Narrative* Diagnostic Procedure Only (Routine) - Closed Specialty Diagnoses / Procedures Referred By Contac t Referred To Contact XR IMAGING Diagnoses Coccydynia Procedures XR SACRUM/COCCYX 3V AP/LAT RADEX SACRUM & COCCYX MINIMUM 2 VIEWS Gayla Ayala, DIETITIAN CONSULTANT.EVP [employer] [address] [place] [address] [place] [address] Referral ID Status Reason Start Date Expiration Date V isits Requested Visits Authorized [id number] Closed Auto-Generate d Referral 12/01/2022 12/31/2023 1 1 [facility] for visit Narrative* Diagnostic Procedure Only (Routine) - Closed Specialty Diagnoses / Procedures Referred By Contac t Referred To Contact XR IMAGING Diagnoses Splinter of finger Procedures XR DIGIT GENERAL 3V FRONTAL/LAT/OBL RIGHT RADEX FINGR MINIMUM 2 VIEWS Pennie Clemente, DIETITIAN CONSULTANT.EVP [employer] [address] [place] [address] [place] [address] Referral ID Status Reason Start Date Expiration Date V isits Requested Visits Authorized [id number] Closed Auto-Generate d Referral 03/16/2022 04/15/2023 1 1 [facility] for visit Narrative* Diagnostic Procedure Only (Urgent) - Closed Specialty Diagnoses / Procedures Referred By Contac t Referred To Contact XR IMAGING Diagnoses Injury of left upper extremity, subsequent encounter Mass of left upper extremity Procedures XR FOREARM GENERAL 2V AP/LAT LEFT RADEX FOREARM 2 VIEWS Karen Gaspar, DIETITIAN CONSULTANT.DESIGN SUPERVISOR [address] [place] [address] [place] [address] Referral ID Status Reason Start Date Expiration Date V isits Requested Visits Authorized [id number] Closed Auto-Generate d Referral 05/10/2024 06/09/2025 1 1 [facility] for visit Narrative* Diagnostic Procedure Only (Urgent) - Closed Specialty Diagnoses / Procedures Referred By Contac t Referred To Contact XR IMAGING Diagnoses Pain of right hand Procedures XR HAND GENERAL 3V PA/LAT/OBL RIGHT RADEX HAND MINIMUM 3 VIEWS Galo Bernal, DIETITIAN CONSULTANT.EVP [employer] [address] [place] [address] [place] [address] Referral ID Status Reason Start Date Expiration Date V isits Requested Visits Authorized [id number] Closed Auto-Generate d Referral 05/23/2024 06/22/2025 [address] [facility] Diagnostic Procedure Only (Routine) - Closed Specialty Diagnoses / Procedures Referred By Contac t Referred To Contact XR IMAGING Diagnoses Right hip pain Procedures XR HIP BILATERAL 5V PEL/AP/LAT EACH HIP RADEX HIPS BILATERAL WITH PELVIS MINIMUM 5 VIEWS Sam Khan DIETITIAN CONSULTANT.EVP [employer] [address] [place] [address] Phone: tel: fax: [place] [address] Referral ID Status Reason Start Date Expiration Date V isits Requested Visits Authorized [id number] Closed Auto-Generate d Referral 09/21/2024 10/21/2025 [address] [facility] Summary Purpose Family History No Family [...] FoundDocuments on File Type Date Recorded Patient Button Spindler Expl anation Advance Directive(s) Advance Directive(s) 12/30/2018 3:43 PM Advance Directive(s) 10/19/2018 9:14 PM Advance Directive(s) 07/02/2018 4:59 PM Advance Directive(s) 01/30/2018 1:31 PM Advance Directive(s) 01/23/2018 6:09 PM Reason for Referral Specialty Diagnoses / Procedures Referred By Contac t Referred To Contact Orthopedics Diagnoses Splinter of finger Procedures CONSULT PANEL TO ORTHOPAEDICS OFFICE/OUTPATIENT NEW HIGH MDM 60-74 MINUTES Pennie Clemente, DIETITIAN CONSULTANT.EVP [employer] [address] [place] [address] Referral ID Status Reason Start Date Expiration Date Visits Requested Visits Authorized [id number] Authorized PCP Requested Referral 03/16/2022 03/16/2023 1 1 Specialty Diagnoses / Procedures Referred By Contac t Referred To Contact XR IMAGING Diagnoses Splinter of finger Procedures XR DIGIT GENERAL 3V FRONTAL/LAT/OBL RIGHT RADEX FINGR MINIMUM 2 VIEWS Penine Clemente APRN.EVP [employer] [address] [place] [id number] Xr Imaging Referral ID Status Reason Start Date Expiration Date V isits Requested Visits Authorized [id number] Closed Auto-Generate d Referral 03/16/2022 04/15/2023 1 1 Specialty Diagnoses / Procedures Referred By Contac t Referred To Contact General Surgery Diagnoses Mass of right breast, unspecified quadrant Procedures CONSULT TO GENERAL SURGERY OFFICE/OUTPATIENT [facility] MDM 60-74 MINUTES Maile Norman MD [address] [place] [address] Referral ID Status Reason Start Date Expiration Date V isits Requested Visits Authorized [id number] Closed PCP Requested Referral 05/12/2022 05/12/2023 1 1 Specialty Diagnoses / Procedures Referred By Contac t Referred To Contact MR IMAGING Diagnoses Tear of right glenoid labrum, subsequent encounter Chronic right shoulder pain Procedures MRI SHOULDER WO/W IVCON RIGHT MRI ANY JT UPPER EXTREMITY W/O & W/CONTR MATRL Sam Khan APRN.EVP [employer] [address] [place] [phone] Mr Imaging Referral ID Status Reason Start Date Expiration Date Visits Requested Visits Authorized [id number] Pending Review Auto-Generat ed Referral 02/08/2023 03/09/2024 1 1 Specialty Diagnoses / Procedures Referred By Contac t Referred To Contact Pain Management Diagnoses Tear of right glenoid labrum, subsequent encounter Chronic right shoulder pain Procedures CONSULT TO PAIN MGT OFFICE/OUTPATIENT [facility] 60-74 MINUTES Sam Khan APRN.EVP [employer] [address] [place] [address] Referral ID Status Reason Start Date Expiration Date Visits Requested Visits Authorized [id number] Authorized PCP Requested Referral 02/08/2023 02/08/2024 1 1 Specialty Diagnoses / Procedures Referred By Contac t Referred To Contact Orthopedics Diagnoses Tear of right glenoid labrum, subsequent encounter Chronic right shoulder pain Procedures CONSULT TO ORTHOPAEDICS OFFICE/OUTPATIENT [facility] 60-74 MINUTES Sam Khan APRN.EVP [employer] [facility] [place] [address] Referral ID Status Reason Start Date Expiration Date Visits Requested Visits Authorized [id number] Authorized PCP Requested Referral 04/24/2024 1 1 Specialty Diagnoses / Procedures Referred By Contac t Referred To Contact Gynecology Diagnoses Screening for cervical cancer Procedures CONSULT TO GYNECOLOGY OFFICE/OUTPATIENT [facility] 60-74 MINUTES Rick Queen MD [address] [place] [address] Referral ID Status Reason Start Date Expiration Date Visits Requested Visits Authorized [id number] Authorized PCP Requested Referral Auto-Generate d Referral 04/30/2023 04/29/2024 1 1 Specialty Diagnoses / Procedures Referred By Contac t Referred To Contact [facility] Diagnoses Tachycardia Procedures ECG COMPLETE ECG ROUTINE ECG W/LEAST 12 LDS W/I&R Rick Queen MD [address] [place] [address] [facility] [place] [address] [facility] [place] [place] [address] Referral ID Status Reason Start Date Expiration Date Visits Requested Visits Authorized [id number] Pending Review Auto-Generat ed Referral 04/30/2023 04/29/2024 1 1 Specialty Diagnoses / Procedures Referred By Contac t Referred To Contact MR IMAGING Diagnoses Tear of right glenoid labrum, subsequent encounter Chronic right shoulder pain Procedures MRI SHOULDER WO/W IVCON RIGHT MRI ANY JT UPPER EXTREMITY W/O & W/CONTR MATRL Sam Khan APRN.EVP [employer] [facility] [place] [address] [place] [address] Referral ID Status Reason Start Date Expiration Date V isits Requested Visits Authorized [id number] Closed Auto-Generate d Referral 02/25/2023 06/26/2023 1 1 Specialty Diagnoses / Procedures Referred By Contac t Referred To Contact Orthopedics Diagnoses Chronic right shoulder pain Labral tear of shoulder, degenerative, right Procedures CONSULT TO ORTHOPAEDICS OFFICE/OUTPATIENT [facility] 60-74 MINUTES ИванbiCharles shelton APRN.EVP [employer] [address] [facility] [place] [address] Antonio Rios MD [address] [facility] [place] [address] Referral ID Status Reason Start Date Expiration Date Visits Requested Visits Authorized [id number] Authorized PCP Requested Referral 3 05/11/2024 1 1 Specialty Diagnoses / Procedures Referred By Contac t Referred To Contact Pain Management Diagnoses Coccydynia Procedures CONSULT TO PAIN MGT OFFICE/OUTPATIENT [facility] 60-74 MINUTES PodlogGayla carias APRN.EVP [employer] [address] [place] [address] Referral ID Status Reason Start Date Expiration Date Visits Requested Visits Authorized [id number] Authorized PCP Requested Referral 12/07/2022 12/06/2023 1 1 Specialty Diagnoses / Procedures Referred By Contac t Referred To Contact [facility] Diagnoses S/P shoulder surgery Procedures CONSULT TO PHYSICAL THERAPY PHYSICAL THERAPY EVALUATION HIGH COMPLEX 45 MINS Laura Tobar PA-C [address] [place] [address] [facility] [place] [address] [place] [address] Referral ID Status Reason Start Date Expiration Date Visits Requested Visits Authorized [id number] Pending Review Auto-Generat ed Referral 09/05/2023 09/04/2024 1 1 Specialty Diagnoses / Procedures Referred By Contac t Referred To Contact MR IMAGING Diagnoses S/P right rotator cuff repair Right shoulder pain, unspecified chronicity Procedures MRI SHOULDER WO IVCON RIGHT MRI ANY JT UPPER EXTREMITY W/O CONTRAST Louis Kaufman MD [address] [place] [address] [place] [address] Referral ID Status Reason Start Date Expiration Date Visits Requested Visits Authorized [id number] New Request Auto-Generat ed Referral 02/07/2024 03/08/2025 1 1 Specialty Diagnoses / Procedures Referred By Contac t Referred To Contact General Surgery Diagnoses Injury of left upper extremity, subsequent encounter Mass of left upper extremity Procedures CONSULT TO GENERAL SURGERY OFFICE/OUTPATIENT [facility] MDM 60 MINUTES Karen Gaspar, DIETITIAN CONSULTANT.DESIGN SUPERVISOR [address] [place] [address] Referral ID Status Reason Start Date Expiration Date Visits Requested Visits Authorized [id number] Authorized PCP Requested Referral 05/10/2025 1 1 Specialty Diagnoses / Procedures Referred By Contac t Referred To Contact XR IMAGING Diagnoses Injury of left upper extremity, subsequent encounter Mass of left upper extremity Procedures XR FOREARM GENERAL 2V AP/LAT LEFT RADEX FOREARM 2 VIEWS Karen Gaspar, DIETITIAN CONSULTANT.DESIGN SUPERVISOR [address] [place] [address] [place] [address] Referral ID Status Reason Start Date Expiration Date V isits Requested Visits Authorized [id number] Closed Auto-Generate d Referral 05/10/2024 06/09/2025 1 1 Referral ID Status Reason Start Date Expiration Date V isits Requested Visits Authorized [id number] Closed Auto-Generate d Referral 06/06/2024 07/06/2024 1 [...] section and content) DATE CREATED AUTHOR 07/04/2018 [facility] DATE CREATED AUTHOR AUTHOR'S ORGANIZ ATION 12/15/2021 [facility] DATE CREATED AUTHOR AUTHOR'S ORGANIZ ATION 02/17/2024 [facility] ([place]) DATE CREATED AUTHOR AUTHOR'S ORGANIZ ATION 02/19/2024 [facility] DATE CREATED AUTHOR AUTHOR'S ORGANIZ ATION 05/03/2024 [facility] DATE CREATED AUTHOR AUTHOR'S ORGANIZ ATION 10/17/2024 [facility] DATE CREATED AUTHOR AUTHOR'S ORGANIZ ATION 12/02/2024 [facility] DATE CREATED AUTHOR AUTHOR'S ORGANIZ ATION 12/04/2024 [facility] Reason for Visit (unrecogniz ed section and content) Reason Comments PT Eval Specialty Diagnoses / Procedures Referred By Contac t Referred To Contact [facility] Diagnoses S/P right rotator cuff repair Right shoulder pain, unspecified chronicity Procedures CONSULT TO PHYSICAL THERAPY PHYSICAL THERAPY EVALUATION HIGH COMPLEX 45 MINS Laura Tobar PA-C [address] [place] [address] Phone: tel: fax: [facility] [address] [place] [address] Referral ID Status Reason Start Date Expiration Date Visits Requested Visits Authorized [id number] Authorized Auto-Generat ed Referral 06/27/2024 06/26/2025 8 8 Reason Comments PT Progress Note Specialty Diagnoses / Procedures Referred By Charity t Referred To Contact Physical Therapy / PHYSICAL THERAPY Diagnoses right shoulder post op Procedures NEW RS PT ORTH MSK Self Mya'Yodit Robin, PT Referral ID Status Reason Start Date Expiration Date V isits Requested Visits Authorized [id number] Authorized 06/27/2023 06/26/2024 30 30 Reason Comments [...] quadrant Procedures CONSULT TO GENERAL SURGERY OFFICE/OUTPATIENT [facility] 60-74 MINUTES Maile Norman MD [address] [place] [address] Referral ID Status Reason Start Date Expiration Date V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 [place] 223651 Heat Treatment Technician Internal Medicine 06/04/24 Com Writer Relationship Specialty Start Date End Date Maile Norman MD [address] [place], [place] 338711 PCP - General Internal Medicine 02/24/12 Charles Elliott APRN.EVP [employer] [address] [place] [address] Referring Pain Management 05/18/23 Karen Gaspar APRN.DESIGN SUPERVISOR [address] [place] [address] Heat Treatment Technician Internal Medicine 06/04/24 Sam Khan APRN.EVP [employer] [address] [place] [address] Heat Treatment Technician Internal Medicine 06/04/24 Com Writer Relationship Specialty Start Date End Date Maile Norman MD [address] [place] [address] PCP - General Internal Medicine 02/24/12 Charles Elliott APRN.EVP [employer] [address] [place] [address] Referring Pain Management 05/18/23 Karen Gaspar APRN.DESIGN SUPERVISOR [address] [place] [address] Heat Treatment Technician Internal Medicine 06/04/24 Sam Khan APRN.EVP [employer] [address] [place] [address] Heat Treatment Technician Internal Medicine 06/04/24 Com Writer Relationship Specialty Start Date End Date Maile Norman MD [address] [place] [address] PCP - General Internal Medicine 02/24/12 Charles Elliott APRN.EVP [employer] [address] [place] [address] Referring Pain Management 05/18/23 Karen Gaspar APRN.DESIGN SUPERVISOR [address] [place] [address] Heat Treatment Technician Internal Medicine 06/04/24 Sam Khan APRN.EVP [employer] [address] [place] [address] Heat Treatment Technician Internal Medicine 06/04/24 Com Writer Relationship Specialty Start Date End Date Maile Norman MD [address] [place] [address] PCP - General Internal Medicine 02/24/12 Charles Elliott APRN.EVP [employer] [address] [place] [address] Referring Pain Management 05/18/23 Karen Gaspar APRN.DESIGN SUPERVISOR [address] [place] [address] Heat Treatment Technician Internal Medicine 06/04/24 Sam Khan DIETITIAN CONSULTANT.EVP [employer] [facility] [place], [place] 591611 Heat Treatment Technician Internal Medicine 06/04/24 Com Writer Relationship Specialty Start Date End Date Maile Norman MD [address] [place], [place] 676451 PCP - General Internal Medicine 02/24/12 Charles Elliott APRN.EVP [employer] [address] [place] [address] Referring Pain Management 05/18/23 Karen Gaspar APRN.DESIGN SUPERVISOR [address] [place], [place] 561041 Heat Treatment Technician Internal Medicine 06/04/24 Sam Khan APRN.EVP [employer] [address] [place], [place] [id number] Heat Treatment Technician Internal Medicine 06/04/24 Com Writer Relationship Specialty Start Date End Date Maile Norman MD [address] [place], [place] 137621 PCP - General Internal Medicine 02/24/12 Charles Elliott APRN.EVP [employer] [address] [place] [address] Referring Pain Management 05/18/23 Karen Gaspar APRN.DESIGN SUPERVISOR [address] [place], [place] 528771 Heat Treatment Technician Internal Medicine 06/04/24 Sam Khan DIETITIAN CONSULTANT.EVP [employer] [address] [place], [place] 773471 Heat Treatment Technician Internal Medicine 06/04/24 Com Writer Relationship Specialty Start Date End Date Maile Norman MD [address] [place], [place] 733641 PCP - General Internal Medicine 02/24/12 Charles Elliott APRN.EVP [employer] [address] [place] [address] Referring Pain Management 05/18/23 Karen Gaspar APRN.DESIGN SUPERVISOR [address] [place] [address] Heat Treatment Technician Internal Medicine 06/04/24 Sam Khan APRN.EVP [employer] [address] [place] [address] Heat Treatment Technician Internal Medicine 06/04/24 Com Writer Relationship Specialty Start Date End Date Maile Norman MD [address] [facility] [place] [address] PCP - General Internal Medicine 02/24/12 Charles Elliott APRN.EVP [employer] [address] [place] [address] Referring Pain Management 05/18/23 Karen Gaspar APRN.DESIGN SUPERVISOR [address] [place] [address] Heat Treatment Technician Internal Medicine 06/04/24 Sam Khan DIETITIAN CONSULTANT.EVP [employer] [address] [facility] [place] [address] Heat Treatment Technician Internal Medicine 06/04/24 Com Writer Relationship Specialty Start Date End Date Maile Norman MD [address] [facility] [place] [address] PCP - General Internal Medicine 02/24/12 Charles Elliott APRN.EVP [employer] [address] [place] [address] Referring Pain Management 05/18/23 Karen Gaspar APRN.DESIGN SUPERVISOR [address] [facility] [place] [address] Heat Treatment Technician Internal Medicine 06/04/24 Sam Khan APRN.EVP [employer] [address] [place] [address] Heat Treatment Technician Internal Medicine 09/18/24 Com Writer Relationship Specialty Start Date End Date Maile Norman MD [address] [place] [address] PCP - General Internal Medicine 02/24/12 Charles Elliott, DIETITIAN CONSULTANT.EVP [employer] [address] [place] [address] Referring Pain Management 05/18/23 Karen Gaspar APRN.DESIGN SUPERVISOR [address] [place] [address] Heat Treatment Technician Internal Medicine 06/04/24 Sam Khan APRN.EVP [employer] [address] [place] [address] Heat Treatment Technician Internal Medicine 09/18/24 Com Writer Relationship Specialty Start Date End Date Maile Norman MD [address] [place] [address] PCP - General Internal Medicine 02/24/12 Charles Elliott, DIETITIAN CONSULTANT.EVP [employer] [address] [place] [address] Referring Pain Management 05/18/23 Karen Gaspar APRN.DESIGN SUPERVISOR [address] [place] [address] Heat Treatment Technician Internal Medicine 06/04/24 Sam Khan APRN.EVP [employer] [address] [place] [address] Heat Treatment Technician Internal Medicine 09/18/24 Com Writer Relationship Specialty Start Date End Date Maile Norman MD [address] [place], [place] 280221 PCP - General Internal Medicine 02/24/12 Charles Elliott APRN.EVP [employer] [address] [place] [address] Referring Pain Management 05/18/23 Karen Gaspar APRN.DESIGN SUPERVISOR [address] [place] [address] Heat Treatment Technician Internal Medicine 06/04/24 Sam Khan APRN.EVP [employer] [address] [place] [address] Heat Treatment Technician Internal Medicine 09/18/24 Com Writer Relationship Specialty Start Date End Date Maile Norman MD [address] [place], [place] 673631 PCP - General Internal Medicine 02/24/12 Charles Elliott APRN.EVP [employer] [address] [place] [address] Referring Pain Management 05/18/23 Karen Gaspar APRN.DESIGN SUPERVISOR [address] [place] [address] Heat Treatment Technician Internal Medicine 06/04/24 Sam Khan APRN.EVP [employer] [address] [place] [address] Heat Treatment Technician Internal Medicine 09/18/24 Com Writer Relationship Specialty Start Date End Date Maile Norman MD [address] [place] [address] PCP - General Internal Medicine 02/24/12 Charles Elliott APRN.EVP [employer] [address] [place] [address] Referring Pain Management 05/18/23 Karen Gaspar DIETITIAN CONSULTANT.DESIGN SUPERVISOR [address] [place] [address] Heat Treatment Technician Internal Medicine 06/04/24 Sam Khan DIETITIAN CONSULTANT.EVP [employer] OF [employer] [address] [place] [address] Heat Treatment Technician Internal Medicine 09/18/24 Com Writer Relationship Specialty Start Date End Date Maile Norman MD [address] [place], [place] 165081 PCP - General Internal Medicine 02/24/12 Charles Elliott APRN.EVP [employer] [address] [place] [address] Referring Pain Management 05/18/23 Karen Gaspar DIETITIAN CONSULTANT.DESIGN SUPERVISOR [address] [place], [place] 973581 Heat Treatment Technician Internal Medicine 06/04/24 Sam Khan DIETITIAN CONSULTANT.EVP [employer] OF [employer] [address] [place], [place] 069311 Heat Treatment Technician Internal Medicine 09/18/24 Com Writer Relationship Specialty Start Date End Date Maile Norman MD [address] [place], [place] 280241 PCP - General Internal Medicine 02/24/12 Charles Elliott APRN.EVP [employer] [address] [place], [place] 071385 Referring Pain Management 05/18/23 Karen Gaspar DIETITIAN CONSULTANT.DESIGN SUPERVISOR [address] [place], [place] 379721 [facility] Internal Medicine 06/04/24 Sam Khan DIETITIAN CONSULTANT.EVP HEAD OF [employer] STRATEGY [address] [place], [place] 370971 [facility] Internal Medicine 09/18/24 Com Writer Relationship Specialty Start Date End Date Maile Norman MD [address] [place], [place] 072431 PCP - General Internal Medicine 02/24/12 Charles Elliott, DIETITIAN CONSULTANT.EVP [employer] [address] [place] [address] Referring Pain Management 05/18/23 Karen Gaspar DIETITIAN CONSULTANT.DESIGN SUPERVISOR [address] [place], [place] 079921 Heat Treatment Technician Internal Medicine 06/04/24 Sam Khna DIETITIAN CONSULTANT.EVP [employer] [address] [place] [address] Heat Treatment Technician Internal Medicine 09/18/24 Com Writer Relationship Specialty Start Date End Date Maile Norman MD [address] [place], [place] 250841 PCP - General Internal Medicine 02/24/12 Charles Elliott APRN.EVP [employer] [address] [place], [place] 28121685 Referring Pain Management 05/18/23 Karen Gaspar DIETITIAN CONSULTANT.DESIGN SUPERVISOR [address] [place], [place] 603461 [facility] Internal Medicine 06/04/24 Sam Khan DIETITIAN CONSULTANT.EVP [employer] [address] [place] [address] Heat Treatment Technician Internal Medicine 09/18/24 Com Writer Relationship Specialty Start Date End Date Maile Norman MD [address] [place], [place] 752481 PCP - General Internal Medicine 02/24/12 Charles Elliott APRN.EVP [employer] [address] [place] [address] Referring Pain Management 05/18/23 Karen Gaspar APRN.DESIGN SUPERVISOR [address] [place] [address] Heat Treatment Technician Internal Medicine 06/04/24 Sam Khna APRN.EVP [employer] [address] [place] [address] Heat Treatment Technician Internal Medicine 09/18/24 Com Writer Relationship Specialty Start Date End Date Maile Norman MD [address] [place] [address] PCP - General Internal Medicine 02/24/12 Charles Elliott APRN.EVP [employer] [address] [place], [place] 864035 Referring Pain Management 05/18/23 Karen Gaspar APRN.DESIGN SUPERVISOR [address] [place] [address] Heat Treatment Technician Internal Medicine 06/04/24 Sam Khan APRN.EVP [employer] [address] [place] [address] Heat Treatment Technician Internal Medicine 09/18/24 Com Writer Relationship Specialty Start Date End Date Maile Norman MD [address] [place] [address] PCP - General Internal Medicine 02/24/12 Charles Elliott APRN.EVP [employer] [address] [place] [address] Referring Pain Management 05/18/23 Karen Gaspar APRN.DESIGN SUPERVISOR [address] [place] [address] Heat Treatment Technician Internal Medicine 06/04/24 Sam Khan APRN.EVP [employer] [address] [place] [address] Heat Treatment Technician Internal Medicine 09/18/24 Com Writer Relationship Specialty Start Date End Date Maile [place] MD [address] [place] [place] [address] PCP - General Internal Medicine 02/24/12 Charles Elliott APRN.EVP [employer] [address] [place], [place] 460425 Referring Pain Management 05/18/23 Karen Gaspar APRN.DESIGN SUPERVISOR [address] [facility] [place] [address] Heat Treatment Technician Internal Medicine 06/04/24 Sam Khan APRN.EVP [employer] [address] [facility] [place] [address] Heat Treatment Technician Internal Medicine 09/18/24 Com Writer Relationship Specialty Start Date End Date Maile Norman MD [address] [facility] [place] [address] PCP - General Internal Medicine 02/24/12 Charles Elliott APRN.EVP [employer] [address] [place], [place] 803755 Referring Pain Management 05/18/23 Karen Gaspar APRN.DESIGN SUPERVISOR [address] [place] [address] Heat Treatment Technician Internal Medicine 06/04/24 Sam Khan APRN.EVP [employer] [address] [place], [place] 038701 Heat Treatment Technician Internal Medicine 09/18/24 Com Writer Relationship Specialty Start Date End Date Maile Norman MD [address] [place], [place] 604421 PCP - General Internal Medicine 02/24/12 Charles Elliott DIETITIAN CONSULTANT.EVP HEAD OF [employer]ENCE [address] [place], [place] [id number] Referring Pain Management 05/18/23 Karen Gaspar APRN.DESIGN SUPERVISOR [address] [place] [address] Heat Treatment Technician Internal Medicine 06/04/24 Sam Khan APRN.EVP [employer] STRATE[employer] [address] [place], [place] [address] [facility] Internal Medicine 09/18/24 Com Writer Relationship Specialty Start Date End Date Maile Norman MD [address] [place], [place] 486171 PCP - General Internal Medicine 02/24/12 Charles Elliott DIETITIAN CONSULTANT.EVP [employer] [address] [place], [place] [address] Referring Pain Management 05/18/23 Karen Gaspar APRN.DESIGN SUPERVISOR [address] [place], [place] [address]141 Heat Treatment Technician Internal Medicine 06/04/24 Sam Khan APRN.EVP [employer] STRATE[employer] [address] [place] [address] Heat Treatment Technician Internal Medicine 09/18/24 Com Writer Relationship Specialty Start Date End Date Maile Norman MD [address] [place], [place] [address] PCP - General Internal Medicine 02/24/12 Charles Elliott APRN.EVP [employer] STRATE[employer] [address] [place], [place] [address]305 Referring Pain Management 05/18/23 Karen Gaspar APRN.DESIGN SUPERVISOR [address] [place] [address] Heat Treatment Technician Internal Medicine 06/04/24 Sam Khan APRN.EVP [employer] STRATE[employer] [address] [place] [address] Heat Treatment Technician Internal Medicine 09/18/24 Com Writer Relationship Specialty Start Date End Date Maile Norman MD [address] [place], [place] [address] PCP - General Internal Medicine 02/24/12 Charles Elliott APRN.EVP [employer] STRATEGY [address] [place] [address] Referring Pain Management 05/18/23 Sam Khan APRN.EVP [employer] STRATE[employer] [address] [place] [address] Heat Treatment Technician Internal Medicine 09/18/24 Karen Gaspar APRN.DESIGN SUPERVISOR [address] [place] [address] Heat Treatment Technician Internal Medicine 11/14/24 Com Writer Relationship Specialty Start Date End Date Maile Norman MD [address] [place], [place] [address] PCP - General Internal Medicine 02/24/12 Charles Elliott APRN.EVP [employer] STRATE[employer] [address] [place], [place] [address] Referring Pain Management 05/18/23 Sam Khan APRN.EVP [employer] STRATEGY [address] [place] [address] Heat Treatment Technician Internal Medicine 09/18/24 Karen Gaspar APRN.DESIGN SUPERVISOR [address] [place] [address] Heat Treatment Technician Internal Medicine 11/14/24 Com Writer Relationship Specialty Start Date End Date Maile Norman MD [address] [place], [place] [address]157[address] PCP - General Internal Medicine 02/24/12 Charles Elliott APRN.EVP [employer] STRATEGY [address] [place] [address] Referring Pain Management 05/18/23 Sam Khan APRN.EVP [employer] STRATEGY [address] [place] [address] Heat Treatment Technician Internal Medicine 09/18/24 Karen Gaspar APRN.DESIGN SUPERVISOR [address] [place] [address] Heat Treatment Technician Internal Medicine 11/14/24 Com Writer Relationship Specialty Start Date End Date Maile Norman MD [address] [place] [address] PCP - General Internal Medicine 02/24/12 Charles Elliott APRN.EVP [employer] STRATEGY [address] [place] [address] Referring Pain Management 05/18/23 Sam Khan APRN.EVP [employer] STRATEGY [address] [place] [address] Heat Treatment Technician Internal Medicine 09/18/24 Karen Gaspar APRN.DESIGN SUPERVISOR [address] [place] [address] Heat Treatment Technician Internal Medicine 11/14/24 Com Writer Relationship Specialty Start Date End Date Maile Norman MD [address] [place], [place] [address] PCP - General Internal Medicine 02/24/12 Charles Elliott APRN.EVP [employer] STRATEGY [address] [place] [address] Referring Pain Management 05/18/23 Sam Khan APRN.EVP [employer] STRATE[employer] [address] [place], [place] [address] Heat Treatment Technician Internal Medicine 09/18/24 Karen Gaspar APRN.DESIGN SUPERVISOR [address] [place], [place] [address]3441 Heat Treatment Technician Internal Medicine 11/14/24 Com Writer Relationship Specialty Start Date End Date Maile Norman MD [address] [place], [place] 379[address] PCP - General Internal Medicine 02/24/12 Charles Elliott APRN.EVP [employer] STRATEGY [address] [place] [address] Referring Pain Management 05/18/23 Sam Khan DIETITIAN CONSULTANT.EVP [employer] STRATE[employer] [address] [place], [place] [address] Heat Treatment Technician Internal Medicine 09/18/24 Karen Gaspar, DIETITIAN CONSULTANT.DESIGN SUPERVISOR [address] [place], [place] [address] Heat Treatment Technician Internal Medicine 11/14/24 Com Writer Relationship Specialty Start Date End Date Maile Norman MD [address] [place], [place] [address] PCP - General Internal Medicine 02/24/12 Charles Elliott, DIETITIAN CONSULTANT.EVP [employer] STRATEGY [address] [place] [address] Referring Pain Management 05/18/23 Sam Khan DIETITIAN CONSULTANT.EVP [employer] STRATEGY [address] [place], [place] [address] Heat Treatment Technician Internal Medicine 09/18/24 Karen Gaspar, DIETITIAN CONSULTANT.DESIGN SUPERVISOR [address] [place], [place] [address] Heat Treatment Technician Internal Medicine 11/14/24 Com Writer Relationship Specialty Start Date End Date Maile Norman MD [address] [place], [place] [address] PCP - General Internal Medicine 02/24/12 Charles Elliott APRN.EVP [employer] STRATEGY [address] [place] [address] Referring Pain Management 05/18/23 Sam Khan DIETITIAN CONSULTANT.EVP [employer] STRATE[employer] [address] [place], [place] [address] Heat Treatment Technician Internal Medicine 09/18/24 Karen Gaspar APRN.DESIGN SUPERVISOR [address] [place], [place] [address] Heat Treatment Technician Internal Medicine 11/14/24 Source Comments (unrecognize d section and content) In the event this informatio n is protected by the Federal Confidentiality of Alcohol and Drug Abuse Patient Records regulations: The Federal rules restrict any use of the information to criminally investigate or prosecute any alcohol or drug abuse patient.[facility] HospitalIn the event this information is protected by the Federal Confidentiality of Alcohol and Drug Abuse Patient Records regulations: The Federal rules restrict any use of the information to criminally investigate or prosecute any alcohol or drug abuse patient.[facility] HospitalIn the event this information is protected by the Federal Confidentiality of Alcohol and Drug Abuse Patient Records regulations: The Federal rules restrict any use of the information to criminally investigate or prosecute any alcohol or drug abuse patient.[facility] HospitalIn the event this information is protected by the Federal Confidentiality of Alcohol and Drug Abuse Patient Records regulations: The Federal rules restrict any use of the information to criminally investigate or prosecute any alcohol or drug abuse patient.[facility] HospitalIn the event this information is protected by the Federal Confidentiality of Alcohol and Drug Abuse Patient Records regulations: The Federal rules restrict any use of the information to criminally investigate or prosecute any alcohol or drug abuse patient.[facility] HospitalIn the event this information is protected by the Federal Confidentiality of Alcohol and Drug Abuse Patient Records regulations: The Federal rules restrict any use of the information to criminally investigate or prosecute any alcohol or drug abuse patient.[facility] HospitalIn the event this information is protected by the Federal Confidentiality of Alcohol and Drug Abuse Patient Records regulations: The Federal rules restrict any use of the information to criminally investigate or prosecute any alcohol or drug abuse patient.[facility] HospitalIn the event this information is protected by the Federal Confidentiality of Alcohol and Drug Abuse Patient Records regulations: The Federal rules restrict any use of the information to criminally investigate or prosecute any alcohol or drug abuse patient.[facility] HospitalIn the event this information is protected by the Federal Confidentiality of Alcohol and Drug Abuse Patient Records regulations: The Federal rules restrict any use of the information to criminally investigate or prosecute any alcohol or drug abuse patient.[facility] HospitalIn the event this information is protected by the Federal Confidentiality of Alcohol and Drug Abuse Patient Records regulations: The Federal rules restrict any use of the information to criminally investigate or prosecute any alcohol or drug abuse patient.[facility] HospitalIn the event this information is protected by the Federal Confidentiality of Alcohol and Drug Abuse Patient Records regulations: The Federal rules restrict any use of the information to criminally investigate or prosecute any alcohol or drug abuse patient.[facility] HospitalIn the event this information is protected by the Federal Confidentiality of Alcohol and Drug Abuse Patient Records regulations: The Federal rules restrict any use of the information to criminally investigate or prosecute any alcohol or drug abuse patient.[facility] HospitalIn the event this information is protected by the Federal Confidentiality of Alcohol and Drug Abuse Patient Records regulations: The Federal rules restrict any use of the information to criminally investigate or prosecute any alcohol or drug abuse patient.[facility] HospitalIn the event this information is protected by the Federal Confidentiality of Alcohol and Drug Abuse Patient Records regulations: The Federal rules restrict any use of the information to criminally investigate or prosecute any alcohol or drug abuse patient.[facility] HospitalIn the event this information is protected by the Federal Confidentiality of Alcohol and Drug Abuse Patient Records regulations: The Federal rules restrict any use of the information to criminally investigate or prosecute any alcohol or drug abuse patient.[facility] HospitalIn the event this information is protected by the Federal Confidentiality of Alcohol and Drug Abuse Patient Records regulations: The Federal rules restrict any use of the information to criminally investigate or prosecute any alcohol or drug abuse patient.[facility] HospitalIn the event this information is protected by the Federal Confidentiality of Alcohol and Drug Abuse Patient Records regulations: The Federal rules restrict any use of the information to criminally investigate or prosecute any alcohol or drug abuse patient.[facility] HospitalIn the event this information is protected by the Federal Confidentiality of Alcohol and Drug Abuse Patient Records regulations: The Federal rules restrict any use of the information to criminally investigate or prosecute any alcohol or drug abuse patient.[facility] HospitalIn the event this information is protected by the Federal Confidentiality of Alcohol and Drug Abuse Patient Records regulations: The Federal rules restrict any use of the information to criminally investigate or prosecute any alcohol or drug abuse patient.[facility] HospitalIn the event this information is protected by the Federal Confidentiality of Alcohol and Drug Abuse Patient Records regulations: The Federal rules restrict any use of the information to criminally investigate or prosecute any alcohol or drug abuse patient.[facility] HospitalIn the event this information is protected by the Federal Confidentiality of Alcohol and Drug Abuse Patient Records regulations: The Federal rules restrict any use of the information to criminally investigate or prosecute any alcohol or drug abuse patient.[facility] HospitalIn the event this information is protected by the Federal Confidentiality of Alcohol and Drug Abuse Patient Records regulations: The Federal rules restrict any use of the information to criminally investigate or prosecute any alcohol or drug abuse patient.[facility] HospitalIn the event this information is protected by the Federal Confidentiality of Alcohol and Drug Abuse Patient Records regulations: The Federal rules restrict any use of the information to criminally investigate or prosecute any alcohol or drug abuse patient.[facility] HospitalIn the event this information is protected by the Federal Confidentiality of Alcohol and Drug Abuse Patient Records regulations: The Federal rules restrict any use of the information to criminally investigate or prosecute any alcohol or drug abuse patient.[facility] HospitalIn the event this information is protected by the Federal Confidentiality of Alcohol and Drug Abuse Patient Records regulations: The Federal rules restrict any use of the information to criminally investigate or prosecute any alcohol or drug abuse patient.[facility] HospitalIn the event this information is protected by the Federal Confidentiality of Alcohol and Drug Abuse Patient Records regulations: The Federal rules restrict any use of the information to criminally investigate or prosecute any alcohol or drug abuse patient.[facility] HospitalIn the event this information is protected by the Federal Confidentiality of Alcohol and Drug Abuse Patient Records regulations: The Federal rules restrict any use of the information to criminally investigate or prosecute any alcohol or drug abuse patient.[facility] HospitalIn the event this information is protected by the Federal Confidentiality of Alcohol and Drug Abuse Patient Records regulations: The Federal rules restrict any use of the information to criminally investigate or prosecute any alcohol or drug abuse patient.[facility] HospitalIn the event this information is protected by the Federal Confidentiality of Alcohol and Drug Abuse Patient Records regulations: The Federal rules restrict any use of the information to criminally investigate or prosecute any alcohol or drug abuse patient.[facility] HospitalIn the event this information is protected by the Federal Confidentiality of Alcohol and Drug Abuse Patient Records regulations: The Federal rules restrict any use of the information to criminally investigate or prosecute any alcohol or drug abuse patient.[facility] HospitalIn the event this information is protected by the Federal Confidentiality of Alcohol and Drug Abuse Patient Records regulations: The Federal rules restrict any use of the information to criminally investigate or prosecute any alcohol or drug abuse patient.[facility] HospitalIn the event this information is protected by the Federal Confidentiality of Alcohol and Drug Abuse Patient Records regulations: The Federal rules restrict any use of the information to criminally investigate or prosecute any alcohol or drug abuse patient.[facility] HospitalIn the event this information is protected by the Federal Confidentiality of Alcohol and Drug Abuse Patient Records regulations: The Federal rules restrict any use of the information to criminally investigate or prosecute any alcohol or drug abuse patient.[facility] HospitalIn the event this information is protected by the Federal Confidentiality of Alcohol and Drug Abuse Patient Records regulations: The Federal rules restrict any use of the information to criminally investigate or prosecute any alcohol or drug abuse patient.[facility] HospitalIn the event this information is protected by the Federal Confidentiality of Alcohol and Drug Abuse Patient Records regulations: The Federal rules restrict any use of the information to criminally investigate or prosecute any alcohol or drug abuse patient.[facility] HospitalIn the event this information is protected by the Federal Confidentiality of Alcohol and Drug Abuse Patient Records regulations: The Federal rules restrict any use of the information to criminally investigate or prosecute any alcohol or drug abuse patient.[facility] HospitalIn the event this information is protected by the Federal Confidentiality of Alcohol and Drug Abuse Patient Records regulations: The Federal rules restrict any use of the information to criminally investigate or prosecute any alcohol or drug abuse patient.[facility] HospitalIn the event this information is protected by the Federal Confidentiality of Alcohol and Drug Abuse Patient Records regulations: The Federal rules restrict any use of the information to criminally investigate or prosecute any alcohol or drug abuse patient.[facility] HospitalIn the event this information is protected by the Federal Confidentiality of Alcohol and Drug Abuse Patient Records regulations: The Federal rules restrict any use of the information to criminally investigate or prosecute any alcohol or drug abuse patient.[facility] HospitalIn the event this information is protected by the Federal Confidentiality of Alcohol and Drug Abuse Patient Records regulations: The Federal rules restrict any use of the information to criminally investigate or prosecute any alcohol or drug abuse patient.[facility] HospitalIn the event this information is protected by the Federal Confidentiality of Alcohol and Drug Abuse Patient Records regulations: The Federal rules restrict any use of the information to criminally investigate or prosecute any alcohol or drug abuse patient.[facility] HospitalIn the event this information is protected by the Federal Confidentiality of Alcohol and Drug Abuse Patient Records regulations: The Federal rules restrict any use of the information to criminally investigate or prosecute any alcohol or drug abuse patient.[facility] HospitalIn the event this information is protected by the Federal Confidentiality of Alcohol and Drug Abuse Patient Records regulations: The Federal rules restrict any use of the information to criminally investigate or prosecute any alcohol or drug abuse patient.[facility] HospitalIn the event this information is protected by the Federal Confidentiality of Alcohol and Drug Abuse Patient Records regulations: The Federal rules restrict any use of the information to criminally investigate or prosecute any alcohol or drug abuse patient.[facility] HospitalIn the event this information is protected by the Federal Confidentiality of Alcohol and Drug Abuse Patient Records regulations: The Federal rules restrict any use of the information to criminally investigate or prosecute any alcohol or drug abuse patient.[facility] HospitalIn the event this information is protected by the Federal Confidentiality of Alcohol and Drug Abuse Patient Records regulations: The Federal rules restrict any use of the information to criminally investigate or prosecute any alcohol or drug abuse patient.[facility] HospitalIn the event this information is protected by the Federal Confidentiality of Alcohol and Drug Abuse Patient Records regulations: The Federal rules restrict any use of the information to criminally investigate or prosecute any alcohol or drug abuse patient.[facility] HospitalIn the event this information is protected by the Federal Confidentiality of Alcohol and Drug Abuse Patient Records regulations: The Federal rules restrict any use of the information to criminally investigate or prosecute any alcohol or drug abuse patient.[facility] HospitalIn the event this information is protected by the Federal Confidentiality of Alcohol and Drug Abuse Patient Records regulations: The Federal rules restrict any use of the information to criminally investigate or prosecute any alcohol or drug abuse patient.[facility] HospitalIn the event this information is protected by the Federal Confidentiality of Alcohol and Drug Abuse Patient Records regulations: The Federal rules restrict any use of the information to criminally investigate or prosecute any alcohol or drug abuse patient.[facility] HospitalIn the event this information is protected by the Federal Confidentiality of Alcohol and Drug Abuse Patient Records regulations: The Federal rules restrict any use of the information to criminally investigate or prosecute any alcohol or drug abuse patient.[facility] HospitalIn the event this information is protected by the Federal Confidentiality of Alcohol and Drug Abuse Patient Records regulations: The Federal rules restrict any use of the information to criminally investigate or prosecute any alcohol or drug abuse patient.[facility] HospitalIn the event this information is protected by the Federal Confidentiality of Alcohol and Drug Abuse Patient Records regulations: The Federal rules restrict any use of the information to criminally investigate or prosecute any alcohol or drug abuse patient.[facility] HospitalIn the event this information is protected by the Federal Confidentiality of Alcohol and Drug Abuse Patient Records regulations: The Federal rules restrict any use of the information to criminally investigate or prosecute any alcohol or drug abuse patient.[facility] HospitalIn the event this information is protected by the Federal Confidentiality of Alcohol and Drug Abuse Patient Records regulations: The Federal rules restrict any use of the information to criminally investigate or prosecute any alcohol or drug abuse patient.[facility] HospitalIn the event this information is protected by the Federal Confidentiality of Alcohol and Drug Abuse Patient Records regulations: The Federal rules restrict any use of the information to criminally investigate or prosecute any alcohol or drug abuse patient.[facility] HospitalIn the event this information is protected by the Federal Confidentiality of Alcohol and Drug Abuse Patient Records regulations: The Federal rules restrict any use of the information to criminally investigate or prosecute any alcohol or drug abuse patient.[facility] HospitalIn the event this information is protected by the Federal Confidentiality of Alcohol and Drug Abuse Patient Records regulations: The Federal rules restrict any use of the information to criminally investigate or prosecute any alcohol or drug abuse patient.[facility] HospitalIn the event this information is protected by the Federal Confidentiality of Alcohol and Drug Abuse Patient Records regulations: The Federal rules restrict any use of the information to criminally investigate or prosecute any alcohol or drug abuse patient.[facility] HospitalIn the event this information is protected by the Federal Confidentiality of Alcohol and Drug Abuse Patient Records regulations: The Federal rules restrict any use of the information to criminally investigate or prosecute any alcohol or drug abuse patient.[facility] HospitalIn the event this information is protected by the Federal Confidentiality of Alcohol and Drug Abuse Patient Records regulations: The Federal rules restrict any use of the information to criminally investigate or prosecute any alcohol or drug abuse patient.[facility] HospitalIn the event this information is protected by the Federal Confidentiality of Alcohol and Drug Abuse Patient Records regulations: The Federal rules restrict any use of the information to criminally investigate or prosecute any alcohol or drug abuse patient.[facility] HospitalIn the event this information is protected by the Federal Confidentiality of Alcohol and Drug Abuse Patient Records regulations: The Federal rules restrict any use of the information to criminally investigate or prosecute any alcohol or drug abuse patient.[facility] HospitalIn the event this information is protected by the Federal Confidentiality of Alcohol and Drug Abuse Patient Records regulations: The Federal rules restrict any use of the information to criminally investigate or prosecute any alcohol or drug abuse patient.[facility] HospitalIn the event this information is protected by the Federal Confidentiality of Alcohol and Drug Abuse Patient Records regulations: The Federal rules restrict any use of the information to criminally investigate or prosecute any alcohol or drug abuse patient.[facility] HospitalIn the event this information is protected by the Federal Confidentiality of Alcohol and Drug Abuse Patient Records regulations: The Federal rules restrict any use of the information to criminally investigate or prosecute any alcohol or drug abuse patient.[facility] HospitalIn the event this information is protected by the Federal Confidentiality of Alcohol and Drug Abuse Patient Records regulations: The Federal rules restrict any use of the information to criminally investigate or prosecute any alcohol or drug abuse patient.[facility] HospitalIn the event this information is protected by the Federal Confidentiality of Alcohol and Drug Abuse Patient Records regulations: The Federal rules restrict any use of the information to criminally investigate or prosecute any alcohol or drug abuse patient.[facility] HospitalIn the event this information is protected by the Federal Confidentiality of Alcohol and Drug Abuse Patient Records regulations: The Federal rules restrict any use of the information to criminally investigate or prosecute any alcohol or drug abuse patient.[facility] HospitalIn the event this information is protected by the Federal Confidentiality of Alcohol and Drug Abuse Patient Records regulations: The Federal rules restrict any use of the information to criminally investigate or prosecute any alcohol or drug abuse patient.[facility] HospitalIn the event this information is protected by the Federal Confidentiality of Alcohol and Drug Abuse Patient Records regulations: The Federal rules restrict any use of the information to criminally investigate or prosecute any alcohol or drug abuse patient.[facility] HospitalIn the event this information is protected by the Federal Confidentiality of Alcohol and Drug Abuse Patient Records regulations: The Federal rules restrict any use of the information to criminally investigate or prosecute any alcohol or drug abuse patient.[facility] HospitalIn the event this information is protected by the Federal Confidentiality of Alcohol and Drug Abuse Patient Records regulations: The Federal rules restrict any use of the information to criminally investigate or prosecute any alcohol or drug abuse patient.[facility] HospitalIn the event this information is protected by the Federal Confidentiality of Alcohol and Drug Abuse Patient Records regulations: The Federal rules restrict any use of the information to criminally investigate or prosecute any alcohol or drug abuse patient.[facility] HospitalIn the event this information is protected by the Federal Confidentiality of Alcohol and Drug Abuse Patient Records regulations: The Federal rules restrict any use of the information to criminally investigate or prosecute any alcohol or drug abuse patient.[facility] HospitalIn the event this information is protected by the Federal Confidentiality of Alcohol and Drug Abuse Patient Records regulations: The Federal rules restrict any use of the information to criminally investigate or prosecute any alcohol or drug abuse patient.[facility] HospitalIn the event this information is protected by the Federal Confidentiality of Alcohol and Drug Abuse Patient Records regulations: The Federal rules restrict any use of the information to criminally investigate or prosecute any alcohol or drug abuse patient.[facility] HospitalIn the event this information is protected by the Federal Confidentiality of Alcohol and Drug Abuse Patient Records regulations: The Federal rules restrict any use of the information to criminally investigate or prosecute any alcohol or drug abuse patient.[facility] HospitalIn the event this information is protected by the Federal Confidentiality of Alcohol and Drug Abuse Patient Records regulations: The Federal rules restrict any use of the information to criminally investigate or prosecute any alcohol or drug abuse patient.[facility] HospitalIn the event this information is protected by the Federal Confidentiality of Alcohol and Drug Abuse Patient Records regulations: The Federal rules restrict any use of the information to criminally investigate or prosecute any alcohol or drug abuse patient.[facility] HospitalIn the event this information is protected by the Federal Confidentiality of Alcohol and Drug Abuse Patient Records regulations: The Federal rules restrict any use of the information to criminally investigate or prosecute any alcohol or drug abuse patient.[facility] HospitalIn the event this information is protected by the Federal Confidentiality of Alcohol and Drug Abuse Patient Records regulations: The Federal rules restrict any use of the information to criminally investigate or prosecute any alcohol or drug abuse patient.[facility] HospitalIn the event this information is protected by the Federal Confidentiality of Alcohol and Drug Abuse Patient Records regulations: The Federal rules restrict any use of the information to criminally investigate or prosecute any alcohol or drug abuse patient.[facility] HospitalIn the event this information is protected by the Federal Confidentiality of Alcohol and Drug Abuse Patient Records regulations: The Federal rules restrict any use of the information to criminally investigate or prosecute any alcohol or drug abuse patient.[facility] HospitalIn the event this information is protected by the Federal Confidentiality of Alcohol and Drug Abuse Patient Records regulations: The Federal rules restrict any use of the information to criminally investigate or prosecute any alcohol or drug abuse patient.[facility] HospitalIn the event this information is protected by the Federal Confidentiality of Alcohol and Drug Abuse Patient Records regulations: The Federal rules restrict any use of the information to criminally investigate or prosecute any alcohol or drug abuse patient.[facility] HospitalIn the event this information is protected by the Federal Confidentiality of Alcohol and Drug Abuse Patient Records regulations: The Federal rules restrict any use of the information to criminally investigate or prosecute any alcohol or drug abuse patient.[facility] HospitalIn the event this information is protected by the Federal Confidentiality of Alcohol and Drug Abuse Patient Records regulations: The Federal rules restrict any use of the information to criminally investigate or prosecute any alcohol or drug abuse patient.[facility] HospitalIn the event this information is protected by the Federal Confidentiality of Alcohol and Drug Abuse Patient Records regulations: The Federal rules restrict any use of the information to criminally investigate or prosecute any alcohol or drug abuse patient.[facility] HospitalIn the event this information is protected by the Federal Confidentiality of Alcohol and Drug Abuse Patient Records regulations: The Federal rules restrict any use of the information to criminally investigate or prosecute any alcohol or drug abuse patient.[facility] HospitalIn the event this information is protected by the Federal Confidentiality of Alcohol and Drug Abuse Patient Records regulations: The Federal rules restrict any use of the information to criminally investigate or prosecute any alcohol or drug abuse patient.[facility] HospitalIn the event this information is protected by the Federal Confidentiality of Alcohol and Drug Abuse Patient Records regulations: The Federal rules restrict any use of the information to criminally investigate or prosecute any alcohol or drug abuse patient.[facility] HospitalIn the event this information is protected by the Federal Confidentiality of Alcohol and Drug Abuse Patient Records regulations: The Federal rules restrict any use of the information to criminally investigate or prosecute any alcohol or drug abuse patient.[facility] HospitalIn the event this information is protected by the Federal Confidentiality of Alcohol and Drug Abuse Patient Records regulations: The Federal rules restrict any use of the information to criminally investigate or prosecute any alcohol or drug abuse patient.[facility] HospitalIn the event this information is protected by the Federal Confidentiality of Alcohol and Drug Abuse Patient Records regulations: The Federal rules restrict any use of the information to criminally investigate or prosecute any alcohol or drug abuse patient.[facility] HospitalIn the event this information is protected by the Federal Confidentiality of Alcohol and Drug Abuse Patient Records regulations: The Federal rules restrict any use of the information to criminally investigate or prosecute any alcohol or drug abuse patient.[facility] HospitalIn the event this information is protected by the Federal Confidentiality of Alcohol and Drug Abuse Patient Records regulations: The Federal rules restrict any use of the information to criminally investigate or prosecute any alcohol or drug abuse patient.[facility] HospitalIn the event this information is protected by the Federal Confidentiality of Alcohol and Drug Abuse Patient Records regulations: The Federal rules restrict any use of the information to criminally investigate or prosecute any alcohol or drug abuse patient.[facility] HospitalIn the event this information is protected by the Federal Confidentiality of Alcohol and Drug Abuse Patient Records regulations: The Federal rules restrict any use of the information to criminally investigate or prosecute any alcohol or drug abuse patient.[facility] HospitalIn the event this information is protected by the Federal Confidentiality of Alcohol and Drug Abuse Patient Records regulations: The Federal rules restrict any use of the information to criminally investigate or prosecute any alcohol or drug abuse patient.[facility] HospitalIn the event this information is protected by the Federal Confidentiality of Alcohol and Drug Abuse Patient Records regulations: The Federal rules restrict any use of the information to criminally investigate or prosecute any alcohol or drug abuse patient.[facility] HospitalIn the event this information is protected by the Federal Confidentiality of Alcohol and Drug Abuse Patient Records regulations: The Federal rules restrict any use of the information to criminally investigate or prosecute any alcohol or drug abuse patient.[facility] HospitalIn the event this information is protected by the Federal Confidentiality of Alcohol and Drug Abuse Patient Records regulations: The Federal rules restrict any use of the information to criminally investigate or prosecute any alcohol or drug abuse patient.[facility] HospitalIn the event this information is protected by the Federal Confidentiality of Alcohol and Drug Abuse Patient Records regulations: The Federal rules restrict any use of the information to criminally investigate or prosecute any alcohol or drug abuse patient.[facility] HospitalIn the event this information is protected by the Federal Confidentiality of Alcohol and Drug Abuse Patient Records regulations: The Federal rules restrict any use of the information to criminally investigate or prosecute any alcohol or drug abuse patient.[facility] HospitalIn the event this information is protected by the Federal Confidentiality of Alcohol and Drug Abuse Patient Records regulations: The Federal rules restrict any use of the information to criminally investigate or prosecute any alcohol or drug abuse patient.[facility] HospitalIn the event this information is protected by the Federal Confidentiality of Alcohol and Drug Abuse Patient Records regulations: The Federal rules restrict any use of the information to criminally investigate or prosecute any alcohol or drug abuse patient.[facility] HospitalIn the event this information is protected by the Federal Confidentiality of Alcohol and Drug Abuse Patient Records regulations: The Federal rules restrict any use of the information to criminally investigate or prosecute any alcohol or drug abuse patient.[facility] HospitalIn the event this information is protected by the Federal Confidentiality of Alcohol and Drug Abuse Patient Records regulations: The Federal rules restrict any use of the information to criminally investigate or prosecute any alcohol or drug abuse patient.[facility] HospitalIn the event this information is protected by the Federal Confidentiality of Alcohol and Drug Abuse Patient Records regulations: The Federal rules restrict any use of the information to criminally investigate or prosecute any alcohol or drug abuse patient.[facility] HospitalIn the event this information is protected by the Federal Confidentiality of Alcohol and Drug Abuse Patient Records regulations: The Federal rules restrict any use of the information to criminally investigate or prosecute any alcohol or drug abuse patient.[facility] HospitalIn the event this information is protected by the Federal Confidentiality of Alcohol and Drug Abuse Patient Records regulations: The Federal rules restrict any use of the information to criminally investigate or prosecute any alcohol or drug abuse patient.[facility] HospitalIn the event this information is protected by the Federal Confidentiality of Alcohol and Drug Abuse Patient Records regulations: The Federal rules restrict any use of the information to criminally investigate or prosecute any alcohol or drug abuse patient.[facility] HospitalIn the event this information is protected by the Federal Confidentiality of Alcohol and Drug Abuse Patient Records regulations: The Federal rules restrict any use of the information to criminally investigate or prosecute any alcohol or drug abuse patient.[facility] HospitalIn the event this information is protected by the Federal Confidentiality of Alcohol and Drug Abuse Patient Records regulations: The Federal rules restrict any use of the information to criminally investigate or prosecute any alcohol or drug abuse patient.[facility] HospitalIn the event this information is protected by the Federal Confidentiality of Alcohol and Drug Abuse Patient Records regulations: The Federal rules restrict any use of the information to criminally investigate or prosecute any alcohol or drug abuse patient.[facility] HospitalIn the event this information is protected by the Federal Confidentiality of Alcohol and Drug Abuse Patient Records regulations: The Federal rules restrict any use of the information to criminally investigate or prosecute any alcohol or drug abuse patient.[facility] HospitalIn the event this information is protected by the Federal Confidentiality of Alcohol and Drug Abuse Patient Records regulations: The Federal rules restrict any use of the information to criminally investigate or prosecute any alcohol or drug abuse patient.[facility] HospitalIn the event this information is protected by the Federal Confidentiality of Alcohol and Drug Abuse Patient Records regulations: The Federal rules restrict any use of the information to criminally investigate or prosecute any alcohol or drug abuse patient.[facility] HospitalIn the event this information is protected by the Federal Confidentiality of Alcohol and Drug Abuse Patient Records regulations: The Federal rules restrict any use of the information to criminally investigate or prosecute any alcohol or drug abuse patient.[facility] HospitalIn the event this information is protected by the Federal Confidentiality of Alcohol and Drug Abuse Patient Records regulations: The Federal rules restrict any use of the information to criminally investigate or prosecute any alcohol or drug abuse patient.[facility] HospitalIn the event this information is protected by the Federal Confidentiality of Alcohol and Drug Abuse Patient Records regulations: The Federal rules restrict any use of the information to criminally investigate or prosecute any alcohol or drug abuse patient.[facility] HospitalIn the event this information is protected by the Federal Confidentiality of Alcohol and Drug Abuse Patient Records regulations: The Federal rules restrict any use of the information to criminally investigate or prosecute any alcohol or drug abuse patient.[facility] HospitalIn the event this information is protected by the Federal Confidentiality of Alcohol and Drug Abuse Patient Records regulations: The Federal rules restrict any use of the information to criminally investigate or prosecute any alcohol or drug abuse patient.[facility] HospitalIn the event this information is protected by the Federal Confidentiality of Alcohol and Drug Abuse Patient Records regulations: The Federal rules restrict any use of the information to criminally investigate or prosecute any alcohol or drug abuse patient.[facility] HospitalIn the event this information is protected by the Federal Confidentiality of Alcohol and Drug Abuse Patient Records regulations: The Federal rules restrict any use of the information to criminally investigate or prosecute any alcohol or drug abuse patient.[facility] HospitalIn the event this information is protected by the Federal Confidentiality of Alcohol and Drug Abuse Patient Records regulations: The Federal rules restrict any use of the information to criminally investigate or prosecute any alcohol or drug abuse patient.[facility] HospitalIn the event this information is protected by the Federal Confidentiality of Alcohol and Drug Abuse Patient Records regulations: The Federal rules restrict any use of the information to criminally investigate or prosecute any alcohol or drug abuse patient.[facility] HospitalIn the event this information is protected by the Federal Confidentiality of Alcohol and Drug Abuse Patient Records regulations: The Federal rules restrict any use of the information to criminally investigate or prosecute any alcohol or drug abuse patient.[facility] HospitalIn the event this information is protected by the Federal Confidentiality of Alcohol and Drug Abuse Patient Records regulations: The Federal rules restrict any use of the information to criminally investigate or prosecute any alcohol or drug abuse patient.[facility] HospitalIn the event this information is protected by the Federal Confidentiality of Alcohol and Drug Abuse Patient Records regulations: The Federal rules restrict any use of the information to criminally investigate or prosecute any alcohol or drug abuse patient.[facility] HospitalIn the event this information is protected by the Federal Confidentiality of Alcohol and Drug Abuse Patient Records regulations: The Federal rules restrict any use of the information to criminally investigate or prosecute any alcohol or drug abuse patient.[facility] HospitalIn the event this information is protected by the Federal Confidentiality of Alcohol and Drug Abuse Patient Records regulations: The Federal rules restrict any use of the information to criminally investigate or prosecute any alcohol or drug abuse patient.[facility] HospitalIn the event this information is protected by the Federal Confidentiality of Alcohol and Drug Abuse Patient Records regulations: The Federal rules restrict any use of the information to criminally investigate or prosecute any alcohol or drug abuse patient.[facility] HospitalIn the event this information is protected by the Federal Confidentiality of Alcohol and Drug Abuse Patient Records regulations: The Federal rules restrict any use of the information to criminally investigate or prosecute any alcohol or drug abuse patient.[facility] HospitalIn the event this information is protected by the Federal Confidentiality of Alcohol and Drug Abuse Patient Records regulations: The Federal rules restrict any use of the information to criminally investigate or prosecute any alcohol or drug abuse patient.[facility] HospitalIn the event this information is protected by the Federal Confidentiality of Alcohol and Drug Abuse Patient Records regulations: The Federal rules restrict any use of the information to criminally investigate or prosecute any alcohol or drug abuse patient.[facility] HospitalIn the event this information is protected by the Federal Confidentiality of Alcohol and Drug Abuse Patient Records regulations: The Federal rules restrict any use of the information to criminally investigate or prosecute any alcohol or drug abuse patient.[facility] HospitalIn the event this information is protected by the Federal Confidentiality of Alcohol and Drug Abuse Patient Records regulations: The Federal rules restrict any use of the information to criminally investigate or prosecute any alcohol or drug abuse patient.[facility] HospitalIn the event this information is protected by the Federal Confidentiality of Alcohol and Drug Abuse Patient Records regulations: The Federal rules restrict any use of the information to criminally investigate or prosecute any alcohol or drug abuse patient.[facility] HospitalIn the event this information is protected by the Federal Confidentiality of Alcohol and Drug Abuse Patient Records regulations: The Federal rules restrict any use of the information to criminally investigate or prosecute any alcohol or drug abuse patient.[facility] HospitalIn the event this information is protected by the Federal Confidentiality of Alcohol and Drug Abuse Patient Records regulations: The Federal rules restrict any use of the information to criminally investigate or prosecute any alcohol or drug abuse patient.[facility] HospitalIn the event this information is protected by the Federal Confidentiality of Alcohol and Drug Abuse Patient Records regulations: The Federal rules restrict any use of the information to criminally investigate or prosecute any alcohol or drug abuse patient.[facility] HospitalIn the event this information is protected by the Federal Confidentiality of Alcohol and Drug Abuse Patient Records regulations: The Federal rules restrict any use of the information to criminally investigate or prosecute any alcohol or drug abuse patient.[facility] HospitalIn the event this information is protected by the Federal Confidentiality of Alcohol and Drug Abuse Patient Records regulations: The Federal rules restrict any use of the information to criminally investigate or prosecute any alcohol or drug abuse patient.[facility] HospitalIn the event this information is protected by the Federal Confidentiality of Alcohol and Drug Abuse Patient Records regulations: The Federal rules restrict any use of the information to criminally investigate or prosecute any alcohol or drug abuse patient.[facility] HospitalIn the event this information is protected by the Federal Confidentiality of Alcohol and Drug Abuse Patient Records regulations: The Federal rules restrict any use of the information to criminally investigate or prosecute any alcohol or drug abuse patient.[facility] HospitalIn the event this information is protected by the Federal Confidentiality of Alcohol and Drug Abuse Patient Records regulations: The Federal rules restrict any use of the information to criminally investigate or prosecute any alcohol or drug abuse patient.[facility] HospitalIn the event this information is protected by the Federal Confidentiality of Alcohol and Drug Abuse Patient Records regulations: The Federal rules restrict any use of the information to criminally investigate or prosecute any alcohol or drug abuse patient.[facility] HospitalIn the event this information is protected by the Federal Confidentiality of Alcohol and Drug Abuse Patient Records regulations: The Federal rules restrict any use of the information to criminally investigate or prosecute any alcohol or drug abuse patient.[facility] HospitalIn the event this information is protected by the Federal Confidentiality of Alcohol and Drug Abuse Patient Records regulations: The Federal rules restrict any use of the information to criminally investigate or prosecute any alcohol or drug abuse patient.[facility] HospitalIn the event this information is protected by the Federal Confidentiality of Alcohol and Drug Abuse Patient Records regulations: The Federal rules restrict any use of the information to criminally investigate or prosecute any alcohol or drug abuse patient.[facility] HospitalIn the event this information is protected by the Federal Confidentiality of Alcohol and Drug Abuse Patient Records regulations: The Federal rules restrict any use of the information to criminally investigate or prosecute any alcohol or drug abuse patient.[facility] HospitalIn the event this information is protected by the Federal Confidentiality of Alcohol and Drug Abuse Patient Records regulations: The Federal rules restrict any use of the information to criminally investigate or prosecute any alcohol or drug abuse patient.[facility] HospitalIn the event this information is protected by the Federal Confidentiality of Alcohol and Drug Abuse Patient Records regulations: The Federal rules restrict any use of the information to criminally investigate or prosecute any alcohol or drug abuse patient.[facility] HospitalIn the event this information is protected by the Federal Confidentiality of Alcohol and Drug Abuse Patient Records regulations: The Federal rules restrict any use of the information to criminally investigate or prosecute any alcohol or drug abuse patient.[facility] HospitalIn the event this information is protected by the Federal Confidentiality of Alcohol and Drug Abuse Patient Records regulations: The Federal rules restrict any use of the information to criminally investigate or prosecute any alcohol or drug abuse patient.[facility] HospitalIn the event this information is protected by the Federal Confidentiality of Alcohol and Drug Abuse Patient Records regulations: The Federal rules restrict any use of the information to criminally investigate or prosecute any alcohol or drug abuse patient.[facility] HospitalIn the event this information is protected by the Federal Confidentiality of Alcohol and Drug Abuse Patient Records regulations: The Federal rules restrict any use of the information to criminally investigate or prosecute any alcohol or drug abuse patient.[facility] HospitalIn the event this information is protected by the Federal Confidentiality of Alcohol and Drug Abuse Patient Records regulations: The Federal rules restrict any use of the information to criminally investigate or prosecute any alcohol or drug abuse patient.[facility] HospitalIn the event this information is protected by the Federal Confidentiality of Alcohol and Drug Abuse Patient Records regulations: The Federal rules restrict any use of the information to criminally investigate or prosecute any alcohol or drug abuse patient.[facility] HospitalIn the event this information is protected by the Federal Confidentiality of Alcohol and Drug Abuse Patient Records regulations: The Federal rules restrict any use of the information to criminally investigate or prosecute any alcohol or drug abuse patient.[facility] HospitalIn the event this information is protected by the Federal Confidentiality of Alcohol and Drug Abuse Patient Records regulations: The Federal rules restrict any use of the information to criminally investigate or prosecute any alcohol or drug abuse patient.[facility] HospitalIn the event this information is protected by the Federal Confidentiality of Alcohol and Drug Abuse Patient Records regulations: The Federal rules restrict any use of the information to criminally investigate or prosecute any alcohol or drug abuse patient.[facility] HospitalIn the event this information is protected by the Federal Confidentiality of Alcohol and Drug Abuse Patient Records regulations: The Federal rules restrict any use of the information to criminally investigate or prosecute any alcohol or drug abuse patient.[facility] HospitalIn the event this information is protected by the Federal Confidentiality of Alcohol and Drug Abuse Patient Records regulations: The Federal rules restrict any use of the information to criminally investigate or prosecute any alcohol or drug abuse patient.[facility] HospitalIn the event this information is protected by the Federal Confidentiality of Alcohol and Drug Abuse Patient Records regulations: The Federal rules restrict any use of the information to criminally investigate or prosecute any alcohol or drug abuse patient.[facility] HospitalIn the event this information is protected by the Federal Confidentiality of Alcohol and Drug Abuse Patient Records regulations: The Federal rules restrict any use of the information to criminally investigate or prosecute any alcohol or drug abuse patient.[facility] HospitalIn the event this information is protected by the Federal Confidentiality of Alcohol and Drug Abuse Patient Records regulations: The Federal rules restrict any use of the information to criminally investigate or prosecute any alcohol or drug abuse patient.[facility] HospitalIn the event this information is protected by the Federal Confidentiality of Alcohol and Drug Abuse Patient Records regulations: The Federal rules restrict any use of the information to criminally investigate or prosecute any alcohol or drug abuse patient.[facility] HospitalIn the event this information is protected by the Federal Confidentiality of Alcohol and Drug Abuse Patient Records regulations: The Federal rules restrict any use of the information to criminally investigate or prosecute any alcohol or drug abuse patient.[facility] HospitalIn the event this information is protected by the Federal Confidentiality of Alcohol and Drug Abuse Patient Records regulations: The Federal rules restrict any use of the information to criminally investigate or prosecute any alcohol or drug abuse patient.[facility] HospitalIn the event this information is protected by the Federal Confidentiality of Alcohol and Drug Abuse Patient Records regulations: The Federal rules restrict any use of the information to criminally investigate or prosecute any alcohol or drug abuse patient.[facility] HospitalIn the event this information is protected by the Federal Confidentiality of Alcohol and Drug Abuse Patient Records regulations: The Federal rules restrict any use of the information to criminally investigate or prosecute any alcohol or drug abuse patient.[facility] HospitalIn the event this information is protected by the Federal Confidentiality of Alcohol and Drug Abuse Patient Records regulations: The Federal rules restrict any use of the information to criminally investigate or prosecute any alcohol or drug abuse patient.[facility] HospitalIn the event this information is protected by the Federal Confidentiality of Alcohol and Drug Abuse Patient Records regulations: The Federal rules restrict any use of the information to criminally investigate or prosecute any alcohol or drug abuse patient.[facility] HospitalIn the event this information is protected by the Federal Confidentiality of Alcohol and Drug Abuse Patient Records regulations: The Federal rules restrict any use of the information to criminally investigate or prosecute any alcohol or drug abuse patient.[facility] HospitalIn the event this information is protected by the Federal Confidentiality of Alcohol and Drug Abuse Patient Records regulations: The Federal rules restrict any use of the information to criminally investigate or prosecute any alcohol or drug abuse patient.[facility] HospitalIn the event this information is protected by the Federal Confidentiality of Alcohol and Drug Abuse Patient Records regulations: The Federal rules restrict any use of the information to criminally investigate or prosecute any alcohol or drug abuse patient.[facility] HospitalIn the event this information is protected by the Federal Confidentiality of Alcohol and Drug Abuse Patient Records regulations: The Federal rules restrict any use of the information to criminally investigate or prosecute any alcohol or drug abuse patient.[facility] HospitalIn the event this information is protected by the Federal Confidentiality of Alcohol and Drug Abuse Patient Records regulations: The Federal rules restrict any use of the information to criminally investigate or prosecute any alcohol or drug abuse patient.[facility] HospitalIn the event this information is protected by the Federal Confidentiality of Alcohol and Drug Abuse Patient Records regulations: The Federal rules restrict any use of the information to criminally investigate or prosecute any alcohol or drug abuse patient.[facility] HospitalIn the event this information is protected by the Federal Confidentiality of Alcohol and Drug Abuse Patient Records regulations: The Federal rules restrict any use of the information to criminally investigate or prosecute any alcohol or drug abuse patient.[facility] HospitalIn the event this information is protected by the Federal Confidentiality of Alcohol and Drug Abuse Patient Records regulations: The Federal rules restrict any use of the information to criminally investigate or prosecute any alcohol or drug abuse patient.[facility] HospitalIn the event this information is protected by the Federal Confidentiality of Alcohol and Drug Abuse Patient Records regulations: The Federal rules restrict any use of the information to criminally investigate or prosecute any alcohol or drug abuse patient.[facility] HospitalIn the event this information is protected by the Federal Confidentiality of Alcohol and Drug Abuse Patient Records regulations: The Federal rules restrict any use of the information to criminally investigate or prosecute any alcohol or drug abuse patient.[facility] HospitalIn the event this information is protected by the Federal Confidentiality of Alcohol and Drug Abuse Patient Records regulations: The Federal rules restrict any use of the information to criminally investigate or prosecute any alcohol or drug abuse patient.[facility] HospitalIn the event this information is protected by the Federal Confidentiality of Alcohol and Drug Abuse Patient Records regulations: The Federal rules restrict any use of the information to criminally investigate or prosecute any alcohol or drug abuse patient.[facility] HospitalIn the event this information is protected by the Federal Confidentiality of Alcohol and Drug Abuse Patient Records regulations: The Federal rules restrict any use of the information to criminally investigate or prosecute any alcohol or drug abuse patient.[facility] FOR RECORDS PERTAINING TO PATIENTS WHO [...] ON THE PRIMARY CLINICAL RECORDS. [facility] [email or web address]. provides no warranty or guarantee of the accuracy or completeness of information in this document.
[2024-12-06 21:58] VITALS: BMI 21.1
[2024-12-06 22:01] VITALS: BP 115/72; PULSE 64; RESP 16; TEMP 37; O2SAT 93
[2024-12-06] MEDS: Ibuprofen 400 MG Tablet PO (22:36)
[2024-12-06] MEDS: traZODone 100 MG Tablet PO (22:37)
[2024-12-07] MEDS: Ondansetron 8 MG Tablet PO ×2 (06:14→14:20)
[2024-12-07] MEDS: Methocarbamol 750 MG Tablet PO ×2 (06:14→14:20)
[2024-12-07] MEDS: Gabapentin 300 MG Capsule PO ×2 (06:14→14:20)
[2024-12-07] MEDS: ALPRAZolam 0.5 MG Tablet PO ×2 (06:14→17:53)
[2024-12-07] MEDS: Ibuprofen 400 MG Tablet PO ×2 (06:14→15:39)
[2024-12-07 06:20] VITALS: BP 118/71; PULSE 81; RESP 16; TEMP 36.6; O2SAT 96
[2024-12-07] MEDS: Dicyclomine 10 MG Capsule 20 MG PO ×2 (06:24→17:54)
[2024-12-07] MEDS: Buprenorphine HCl 2 MG TAB.SUBL SL ×3 (06:29→22:37)
[2024-12-07 11:17] VITALS: BP 116/75; PULSE 71; RESP 18; TEMP 37; O2SAT 97
[2024-12-07] MEDS: Acetaminophen 325 MG Tablet 650 MG PO ×2 (11:46→17:54)
[2024-12-07] MEDS: cloNIDine HCl 0.1 MG Tablet PO (11:51)
--- NOTE | 2024-12-07 12:16 | ADDICTION ---
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 PT A+Ox4 and participated actively. All assessments completed and placed in PT's chart. PT plans to f/u with [facility] for outpatient treatment services. Walk-In assessment times were given to patient.
[2024-12-07] MEDS: hydrOXYzine PAM 25 MG Capsule 50 MG PO (15:39)
[2024-12-07 15:50] VITALS: BP 122/82; PULSE 70; RESP 17; TEMP 36.8; O2SAT 97
--- NOTE | 2024-12-07 17:15 | PCM.PN.HOSP ---
Reason for Visit Reason for Visit: Diagnoses Opioid dependence, uncomplicated (12/06/24) Subjective Subjective Patient was seen and examined today, she is not complaining of any nervousness or tremor at this time. I discussed her care with addiction foster care social worker. Patient plans on following up with [facility] for outpatient treatment services. Objective Data Objective Data Vital Signs: Vital Signs Temp Pulse Resp BP Pulse Ox O2 Del Method 98.2 F 70 17 122/82 H 97 Room Air 12/07/24 15:50 12/07/24 15:50 12/07/24 15:50 12/07/24 15:50 12/07/24 15:50 12/07/24 15:50 Oxygen Delivery Method Room Air Weight: 57.5 kg Body Mass Index (BMI) 21.1 Lab / Micro Data 12/06/24 19:50 12/06/24 19:50 Labs: Laboratory Results - last 24 hr 12/06/24 19:50: WBC 9.2, RBC 4.23, Hgb 13.5, Hct 38.5, MCV 91.0, MCH 31.9, MCHC 35.1, RDW Std Deviation 40.9, RDW Coeff of Denys 12.3, Plt Count 273, MPV 10.0, Immature Gran % (Auto) 0.200, Neut % (Auto) 59.6, Lymph % (Auto) 30.5, [place] % (Auto) 7.5, Eos % (Auto) 1.1, Baso % (Auto) 1.1 H, Absolute Neuts (auto) 5.5, Absolute Lymphs (auto) 2.81, Nucleated RBC % 0, Sodium 137, Potassium 3.7, Chloride 102, Carbon Dioxide 24.2, Anion Gap 11, BUN 3 L, Creatinine 0.64 L, Estim Creat Clear Calc 101.21, Est GFR (MDRD) Non-Af 113, BUN/Creatinine Ratio 4.6 L, Glucose 117 H, Calcium 8.8, Total Bilirubin 0.19, AST 22, ALT 11, Alkaline Phosphatase 62, Total Protein 6.2, Albumin 3.8, Globulin 2.4, Albumin/Globulin Ratio 1.6, Serum , Qual NEGATIVE, Urine Opiates Screen NEGATIVE, U Buprenorphine Qual NEGATIVE, Ur Oxycodone Screen PRESUMPTIVE POSITIVE, Urine Methadone Screen NEGATIVE, Urine Fentanyl Screen NEGATIVE, Ur Barbiturates Screen NEGATIVE, Ur Phencyclidine Scrn NEGATIVE, Ur Amphetamines Screen NEGATIVE, U Benzodiazepines Scrn PRESUMPTIVE POSITIVE, Urine Cocaine Screen NEGATIVE, U Cannabinoids Screen PRESUMPTIVE POSITIVE, Ethyl Alcohol < 10.1 Physical Exam Const alert, oriented x3, no apparent distress, average body habitus and healthy appearing General Appearance: cooperative, well kempt and well developed Orientation / Consciousness: awake, oriented to person, oriented to place and oriented to time HEENT normocephalic, head/scalp atraumatic and moist oral mucous membranes Eyes PERRL, EOMs intact bilaterally and conjunctivae normal Neck supple, no JVD, thyroid normal and no carotid bruits General: trachea midline Resp normal respiratory effort, no retractions, no use of accessory muscles and clear to auscultation bilaterally Auscultation: Negative for rales, rhonchi or wheezes Cardio regular rate, regular rhythm, S1 normal heart sound, S2 normal heart sound, no murmurs, no rub and no gallops GI normal to inspection, nondistended, normoactive bowel sounds, soft to palpation, non-tender and non-distended Extremity no clubbing, cyanosis or edema Skin no rashes or lesions noted General Skin Exam: no breakdown Neuro oriented x3, CN's II-XII intact bilaterally, no focal motor deficits and no sensory deficits noted Sensorium / Orientation: awake and alert Speech: speech normal Psych affect normal Assessment & Plan Assessment/Plan (1) Opiate dependence: PLAN: Plan 1. Acute opiate withdrawal-patient will remain on Subutex at this time, she plans on following up as an outpatient at [facility] for treatment services. #2 chronic anxiety-patient takes Xanax twice daily as needed anxiety #3 opioid dependence-again patient will follow-up as an outpatient with [facility] Total clinical time spent by myself addressing the patient's medical issues, reviewing all of her data, and collaborating with patient's care team: 25-minute Charges/Coding Visit Charges Inpatient E&M: [id number] [facility] Hosp L1
[2024-12-07 22:34] VITALS: BP 115/56; PULSE 64; RESP 16; TEMP 36.7; O2SAT 98
[2024-12-07] MEDS: traZODone 100 MG Tablet PO (22:37)
[2024-12-08 04:54] VITALS: BP 90/64; PULSE 63; RESP 16; TEMP 36.5; O2SAT 94
[2024-12-08] MEDS: Ondansetron 8 MG Tablet PO ×2 (04:57→14:43)
[2024-12-08] MEDS: Ibuprofen 400 MG Tablet PO ×3 (04:57→21:33)
[2024-12-08] MEDS: Buprenorphine HCl 2 MG TAB.SUBL SL ×3 (06:16→21:33)
[2024-12-08 06:17] VITALS: BP 93/52; PULSE 66; RESP 16; TEMP 36.7; O2SAT 97
[2024-12-08] MEDS: Dicyclomine 10 MG Capsule 20 MG PO (09:52)
[2024-12-08] MEDS: Methocarbamol 750 MG Tablet PO ×2 (09:52→18:06)
[2024-12-08] MEDS: Acetaminophen 325 MG Tablet 650 MG PO ×2 (09:52→18:06)
[2024-12-08] MEDS: ALPRAZolam 0.5 MG Tablet PO ×2 (09:55→21:33)
[2024-12-08 10:04] VITALS: BP 100/59; PULSE 69; RESP 20; TEMP 36.6; O2SAT 99
[2024-12-08] MEDS: Gabapentin 300 MG Capsule PO (14:43)
[2024-12-08 14:46] VITALS: BP 117/77; PULSE 72; RESP 19; TEMP 37.1; O2SAT 100
[2024-12-08] MEDS: cloNIDine HCl 0.1 MG Tablet PO (14:48)
--- NOTE | 2024-12-08 16:14 | PCM.PN.HOSP ---
Reason for Visit Reason for Visit: Diagnoses Opioid dependence, uncomplicated (12/06/24) Subjective Subjective Patient was seen and examined, she does not complain of any nervousness or anxiety. She had a question about a lymph node in her right groin area that she has had for approximately a year, she has mentioned it to her PCP. I palpated the area of there is a small lymph node approximately half centimeter in diameter there is no lymph node in the left groin area. I told her since it has been there for approximately a year is probably nothing to worry about and that she should follow-up with her PCP and he could get a CAT scan of the area if it is warranted. Patient states she has no enlarged lymph nodes anywhere else to her knowledge. Patient is going to follow-up with an outpatient detox program rather than do an inpatient detox program. Objective Data Objective Data Vital Signs: Vital Signs Temp Pulse Resp BP Pulse Ox O2 Del Method 98.7 F 72 19 H 117/77 100 Room Air 12/08/24 14:46 12/08/24 14:46 12/08/24 14:46 12/08/24 14:46 12/08/24 14:46 12/08/24 14:46 Oxygen Delivery Method Room Air Weight: 57.5 kg Body Mass Index (BMI) 21.1 Lab / Micro Data 12/06/24 19:50 12/06/24 19:50 Physical Exam Narrative alert, oriented x3, no apparent distress, average body habitus and healthy appearing General Appearance: cooperative, well kempt and well developed Orientation / Consciousness: awake, oriented to person, oriented to place and oriented to time HEENT normocephalic, head/scalp atraumatic and moist oral mucous membranes Eyes PERRL, EOMs intact bilaterally and conjunctivae normal Neck supple, no JVD, thyroid normal and no carotid bruits General: trachea midline Resp normal respiratory effort, no retractions, no use of accessory muscles and clear to auscultation bilaterally Auscultation: Negative for rales, rhonchi or wheezes Cardio regular rate, regular rhythm, S1 normal heart sound, S2 normal heart sound, no murmurs, no rub and no gallops GI normal to inspection, nondistended, normoactive bowel sounds, soft to palpation, non-tender and non-distended Extremity no clubbing, cyanosis or edema, a small 1 cm lymph node is noted in the patient's right groin area to palpation, it is nontender, there are no enlarged lymph nodes in the left groin area. Skin no rashes or lesions noted General Skin Exam: no breakdown Neuro oriented x3, CN's II-XII intact bilaterally, no focal motor deficits and no sensory deficits noted Sensorium / Orientation: awake and alert Speech: speech normal Psych affect normal Assessment & Plan Assessment/Plan (1) Opiate dependence: PLAN: Plan 1. Acute opiate withdrawal-patient will remain on Subutex at this time, she plans on following up as an outpatient at [facility] for treatment services. #2 chronic anxiety-patient takes Xanax twice daily as needed anxiety #3 opioid dependence-again patient will follow-up as an outpatient with [facility] #4 enlarged lymph node in the right groin area-I instructed the patient to follow-up with her PCP regarding this, since has been present for approximately a year according to the patient, I do not think further workup is necessary here. Total clinical time spent by myself addressing the patient's medical issues, reviewing all of her data, and collaborating with patient's care team: 25-minute Charges/Coding Visit Charges Inpatient E&M: [id number] [facility] Hosp L2
[2024-12-08] MEDS: hydrOXYzine PAM 25 MG Capsule 50 MG PO (18:06)
[2024-12-08 21:06] VITALS: BP 110/68; PULSE 64; RESP 16; TEMP 36.8; O2SAT 97
[2024-12-08] MEDS: traZODone 100 MG Tablet PO (21:33)
[2024-12-09 01:10] VITALS: BP 105/60; PULSE 61; RESP 16; TEMP 36.7; O2SAT 93
[2024-12-09] MEDS: Acetaminophen 325 MG Tablet 650 MG PO ×2 (01:13→08:52)
[2024-12-09 06:25] VITALS: BP 103/66; PULSE 71; RESP 16; TEMP 36.6; O2SAT 97
[2024-12-09] MEDS: hydrOXYzine PAM 25 MG Capsule 50 MG PO (06:30)
[2024-12-09] MEDS: Ibuprofen 400 MG Tablet PO (06:30)
[2024-12-09] MEDS: Methocarbamol 750 MG Tablet PO (06:30)
[2024-12-09] MEDS: Buprenorphine HCl 2 MG TAB.SUBL SL (06:31)
[2024-12-09] MEDS: Ondansetron 8 MG Tablet PO (06:31)
[2024-12-09 08:44] VITALS: BP 100/59; PULSE 69; RESP 19; TEMP 36.7; O2SAT 100
[2024-12-09] MEDS: ALPRAZolam 0.5 MG Tablet PO (08:53)
[2024-12-09] MEDS: Dicyclomine 10 MG Capsule 20 MG PO (08:53)
--- NOTE | 2024-12-09 10:44 | DCINST_ITS ---
Discharge Instructions Diet Discharge Diet: No restrictions DC O2, CPAP, BIPAP needs Home O2 Discharge instructions: No Dressing / Incision Discharge Activity: Return to Normal Activity Weight Bearing Status: Full weight bearing Follow Up Care Test Results: Test results from this visit will be discussed in further detail at your follow- up appointment, if applicable. Discharge Plan Admission Admit Date/Time: 12/06/24 21:16 Primary Reason for Your Visit: Opiate detox Attending Provider: Jorge Luis Ortega Primary Care Provider: Tamika Mario Consulting Providers: Adelina Garcia Instructions Additional Instructions / Restrictions: Follow-up with [facility] tomorrow Discharge Orders/Prescriptions Prescriptions: Continued trazodone 100 MG tablet 100 mg PO QHS (DME) BreatheRite MDI Spacer Spacer MISCELLANEOUS X1 ondansetron HCl 4 mg tablet 4 mg PO TID PRN PRN (Reason: nausea/vomiting) alprazolam 0.5 mg tablet 0.5 mg PO BID PRN PRN (Reason: anxiety) albuterol sulfate 90 mcg/actuation HFA aerosol inhaler 2 puff inhalation Q4H PRN PRN (Reason: wheezing) Patient Comments: has not used since she had pneumonia in summer 2023 tizanidine 4 mg tablet 4 mg PO Q6H PRN PRN (Reason: muscle relaxation) Discontinued oxycodone 10 mg tablet 10 mg PO Q6H PRN (Reason: pain) 2 Days Qty: 8 0RF Referrals / Follow Up: Tamika Mario MD [Primary Care Provider] - Disposition Disposition (needs filled in before D/C Order can be placed): Home, Self Care
--- NOTE | 2024-12-09 10:47 | DS.PCM_ITS ---
Providers Date of Admission: 12/06/24 Date of Discharge: 12/09/24 Primary Care Physician: Dr. Tamika Mario MD Reason For Visit: OPIATE DETOX Diagnosis Discharge Diagnosis (1) Opiate dependence: Status: Acute Code(s): F11.20 - Opioid dependence, uncomplicated Plan 1. Acute opiate withdrawal-patient will remain on Subutex at this time, she plans on following up as an outpatient at 180 for treatment services. #2 chronic anxiety-patient takes Xanax twice daily as needed anxiety #3 opioid dependence-again patient will follow-up as an outpatient with 180 #4 enlarged lymph node in the right groin area-I instructed the patient to follow-up with her PCP regarding this, since has been present for approximately a year according to the patient, I do not think further workup is necessary here. Total clinical time spent by myself addressing the patient's medical issues, reviewing all of her data, and collaborating with patient's care team: 25-minute Medications at Discharge Home Medications trazodone 100 mg tablet 100 mg PO QHS sleep 01/03/17 inhalational spacing device (BreatheRite MDI Spacer) 10/09/23 tizanidine 4 mg tablet 4 mg PO Q6H PRN PRN muscle relaxation 02/27/24 albuterol sulfate 90 mcg/actuation aerosol inhaler 2 puff inhalation Q4H PRN PRN wheezing 12/06/24 alprazolam 0.5 mg tablet 0.5 mg PO BID PRN PRN anxiety 12/06/24 ondansetron HCl 4 mg tablet 4 mg PO TID PRN PRN nausea/vomiting 12/06/24 Hospital Course Operations None Procedures None Summary of Care Provided Minutes Spent on Discharge: 30 Hospital Course: This 44-year-old white female was seen in the emergency room at [facility] requesting services for opiate detoxification. Patient reports past history of heroin abuse and has been clean in regard to heroin for several years. She began taking oxycodone approximately 2 years ago for shoulder injury and has been using oxycodone since then, she was told to wean off this medication by her PCP but she has withdrawal symptoms if she does not take it after 12 hours. Workup in the emergency room included a toxicology panel which was positive for oxycodone, benzodiazepines, and cannabinoids. Patient does take Xanax for anxiety. Patient was admitted to [place] [id number] and orders were entered using the opiate detox order set. Patient was seen by addiction delinquency prevention social worker and patient declined to do inpatient detox and instead opted for an outpatient detox program. Patient had no untoward events during her hospital stay. On 12/09/2024, patient was seen and examined: On examination she appeared in good health and spirits, she does not appear to be in any distress. Vital signs as documented. Skin warm and dry and without overt rashes. Neck without JVD, thyroid appears normal, trachea is midline, neck is supple. Lungs clear, normal air movement was noted. Heart exam notable for regular rhythm, normal sounds and absence of murmurs, rubs or gallops. Abdomen unremarkable and without evidence of organomegaly, masses, or abdominal aortic enlargement, bowel sounds are present in all 4 quadrants, no abdominal tenderness was noted. Extremities nonedematous, no cyanosis was noted, no clubbing was noted. Neuro: Cranial nerves II through XII are grossly intact, no focal motor deficits were noted, sensation to light touch and pinprick is intact, motor exam 5/5 throughout. Psych: Patient is alert and oriented x3, she does not appear anxious or depressed, she does not appear agitated. Patient was felt to be in stable condition on 12/09/2024 and was discharged home Weight / BMI Weight Weight: 57.5 kg Body Mass Index (BMI) 21.1 ABG / Lab / Microbiology Data 12/06/24 19:50 12/06/24 19:50 D/C Instructions Discharge Diet: No restrictions Weight Bearing Status: Full weight bearing DC O2, CPAP, BIPAP Needs Home O2 Discharge instructions: No Meaningful Use Info Meaningful Use Meaningful Use Diagnoses (Choose all that apply): None applicable Ischemic Stroke Statin Dosing Therapy Reference: STATIN DOSE THERAPY REFERENCE: * Patients > 75 years receive moderate or high dose statin therapy. * Patients 75 years or YOUNGER should receive HIGH intensity statin dose unless contraindicated. You will be required to document reason for non-treatment if statin daily dose does not meet guidelines. HIGH DOSE STATIN THERAPY DAILY Atorvastatin > than or = to 40 mg Rosuvastatin > than or = to 20 mg Amlodipine + Atorvastatin > than or = to 2.5/40 mg Ezetimibe + Simvastatin 10/80 mg Simvastatin 80mg Discharge Plan Admission Admit Date/Time: 06/12/25 21:16 Primary Reason for Your Visit: Opiate detox Attending Provider: Jorge Luis Ortega Primary Care Provider: Tamika Mario Consulting Providers: Adelina Garcia Instructions Additional Instructions / Restrictions: Follow-up with 180 tomorrow Discharge Orders/Prescriptions Prescriptions: Continued trazodone 100 MG tablet 100 mg PO QHS (DME) BreatheRite MDI Spacer Spacer MISCELLANEOUS X1 ondansetron HCl 4 mg tablet 4 mg PO TID PRN PRN (Reason: nausea/vomiting) alprazolam 0.5 mg tablet 0.5 mg PO BID PRN PRN (Reason: anxiety) albuterol sulfate 90 mcg/actuation HFA aerosol inhaler 2 puff inhalation Q4H PRN PRN (Reason: wheezing) Patient Comments: has not used since she had pneumonia in summer 2023 tizanidine 4 mg tablet 4 mg PO Q6H PRN PRN (Reason: muscle relaxation) Discontinued oxycodone 10 mg tablet 10 mg PO Q6H PRN (Reason: pain) 2 Days Qty: 8 0RF Referrals / Follow Up: Tamika Mario MD [Primary Care Provider] - Disposition Disposition (needs filled in before D/C Order can be placed): Home, Self Care Charges/Coding Visit Charges Inpatient E&M: 00377 Disch Hosp
--- NOTE | 2024-12-09 10:53 | NURSING ---
Tote in room has been opened by this RN and pt calling for her ride as pt has order to be discharged.
--- NOTE | 2024-12-16 11:20 | NURSING ---
pt called in stating she was discharged last week and hasn't feel good since. states she is just laying around nauseate. pt verbalized she did not follow up with [facility], she did not do a walk in assessment. advised patient she could return to the ER if she felt necessary. pt asking if there is something else she could do, encouraged patient to also contact 180 as been provided information.
== END 2024-12-09 11:13 | disposition home or self-care (01) ==
LOC: ED 21:20 → MS3 21:27
PROVIDERS: Physician Assistant; Admitting Provider Internal Medicine; Emergency Provider Emergency Medicine; PCP Internal Medicine; Visit Provider Internal Medicine
DX: F11.23 Opioid dependence with withdrawal (principal); F12.90 Cannabis use, unspecified, uncomplicated; F41.9 Anxiety disorder, unspecified; F17.210 Nicotine dependence, cigarettes, uncomplicated; R59.0 Localized enlarged lymph nodes; G47.00 Insomnia, unspecified; Z79.899 Other long term (current) drug therapy; Z86.19 Personal history of other infectious and parasitic diseases; Z86.79 Personal history of other diseases of the circulatory system
CPT/HCPCS: 80053; 80307; 82077; 84703; 85025; 99221; 99283; G0378

== ENCOUNTER 2024-12-16 11:56 | Emergency (ER) | payer MEDICAID, SELFPAY ==
[2024-12-16] VITALS (11 sets, daily range): BP systolic 119–147; BP diastolic 65–99; PULSE 66–92; RESP 10–29; TEMP 36.4–36.6; O2SAT 98–100; BMI 20.7
--- NOTE | 2024-12-16 12:08 | EX.ED.DYSGE1 ---
HPI History of Present Illness Chief Complaint: Substance Abuse [facility] Medical History Substance abuse Congestive heart failure (CHF) Marijuana use Right rotator cuff tear Wears partial dentures Hepatitis Smoker History of echocardiogram History of stress test Cardiology follow-up encounter History of CHF (congestive heart failure) Esophageal tear Anxiety Home Medications ?Medication ?Instructions ?Recorded ?Last Taken ?Type trazodone 100 mg tablet 100 mg PO QHS sleep 01/03/17 12/05/24 History inhalational spacing device 10/09/23 Unknown History (BreatheRite MDI Spacer) albuterol sulfate 90 mcg/actuation 2 puff inhalation Q4H PRN PRN 12/06/24 Unknown History aerosol inhaler wheezing alprazolam 0.5 mg tablet 0.5 mg PO BID PRN PRN anxiety 12/06/24 12/04/24 History ondansetron HCl 4 mg tablet 4 mg PO TID PRN PRN nausea/vomiting 12/06/24 12/06/24 History duloxetine 20 mg capsule,delayed 20 mg PO DAILY 12/16/24 Unknown History release Allergy/AdvReac Type Severity Reaction Status Date / Time escitalopram (From Lexapro) Allergy Other Verified 12/16/24 11:57 lamotrigine (From Lamictal) Allergy Hives Verified 12/16/24 11:57 nitrofurantoin (From Allergy Unknown Verified 12/16/24 11:57 Macrobid) nitrofurantoin Allergy Unknown Verified 12/16/24 11:57 macrocrystalline (From Macrobid) codeine AdvReac Nausea Verified 12/16/24 11:57 Family History Mother Anxiety Hypertension High cholesterol Diabetes Depression Father Hypertension Surgical History History of tubal ligation History of lumpectomy of right breast History of repair of rotator cuff Hx of surgical procedure Hx of removal of ovary History of tonsillectomy and adenoidectomy Social History household members: family housing: house Smoking Status: Current every day smoker tobacco type: cigarettes substance use type: marijuana additional social history: pt does not vape, does not take aspirin, pt does report using marijuana daily,does uses edibles on occassion, does use ibuprofen as needed. EXAM Physical Exam Const Vital Signs: 12/16/24 11:57 12/16/24 13:34 Temperature 97.6 F L Temperature Source Oral Pulse Rate 92 71 Respiratory Rate 18 17 Blood Pressure 139/92 H 129/71 H Blood Pressure Mean 107 90 Pulse Ox 100 99 Oxygen Delivery Method Room Air Room Air [facility] [place] Narrative Medical decision making narrative: HISTORY OF PRESENT ILLNESS: Chief complaint: Concern for opiate withdrawal 44-year-old female history of substance abuse, depression presents with concern she feels terrible. States that she think she is withdrawing from opiates again. She notes she was addicted to opiates for approximately 2 years and recently went through the [facility] program for opiate withdrawal. States she was discharged on the (7 days ago). She states she has not used any opiates since 06 December and approximate 10 days ago she think she could be going to withdrawal. Show she felt okay day after she was discharged within start having symptoms of withdrawal including feeling shaky, nervous, having nausea. Denies vomiting or diarrhea. Denies any drug use. Denies any methadone use. Denies any headaches, chest pain, shortness of breath, abdominal pain, vomiting, vaginal bleeding or discharge REVIEW OF SYSTEMS: Pertinent positives: As per HPI Pertinent negatives: As per HPI PHYSICAL EXAM: Nursing triage notes reviewed, Vital signs reviewed Constitutional: please see mdm HENT: MMM Eyes: Pupils equal round and reactive to light, Extraocular muscles intact Neck: No stridor, no JVD, full neck ROM Lungs: Clear to auscultation, No wheezing or rales. No increased work of breathing, no conversational dyspnea, no accessory muscle use, no nasal flaring. No respiratory distress noted Heart: Regular rate and rhythm, No murmurs, No rubs and No gallops, 2+ distal pulses (radial, femoral, posterior tibial) in all extremities Abdomen: Soft, there is no tenderness, rigidity, rebound or guarding, no obvious peritoneal signs, no palpable pulsatile abdominal masses, no auscultated abdominal bruit : No CVAT Extremities: No edema Neuro: No new focal neurological deficits, cranial nerves II through XII intact, 5/5 strength in all present extremities. Intact sensation to light touch in all present extremities, 2+ reflexes bilateral patella tendons. Skin: No rash or lesions noted, piloerection MEDICAL DECISION MAKING: Chief Complaint: please see HPI External records reviewed: Reviewed recent hospitalization. Admitted from 12/06/2024 to 12/09/2024 Factors affecting care: history of opiate dependence Social determinants of health: none History obtained from others: Mother Consults: none [facility] Narrative: Patient was hemodynamically stable, afebrile, nontoxic-appearing. Exam without focal neurologic deficits, cardiopulmonary abnormalities. COWS score I considered the following differential diagnosis: Arrhythmia, anemia, electrolyte disturbance, acute pancreatitis, I obtained a broad lab workup to further determine if the patient was suffering from a life-threatening etiology. I gave Atarax for anxiety. I did not feel the patient needed a narcotic to treat anxiety given history of substance abuse ALL IMAGES (IF OBTAINED) HAVE BEEN PERSONALLY REVIEWED AND INTERPRETED BY MYSELF. CBC with leukocytosis (this is nonspecific and likely reactive, there is no physical exam findings to suggest severe infection) suggestive of systemic inflammation, no anemia Urinalysis shows no evidence of urinary inflammation suggestive of UTI urine test is negative EKG with normal sinus rhythm rate of 70, prolonged QT interval 496, no STEMI, no sign of ARVD, Brugada syndrome, WPW. No sign of pericarditis Lipase is wnl indicating no pancreatic inflammation. CMP without evidence of acute kidney injury, significant electrolyte abnormality, anion gap to suggest end organ hypo-perfusion, no evidence of metabolic acidosis with a normal bicarbonate, no evidence of hepatobiliary obstructive pathology. Upon reevaluation the patient hemodynamically stable, afebrile and nontoxic-appearing. Labs were unremarkable. No clear etiology of patient's complaints. Does not appear to be life-threatening. In terms of opiate withdrawal the patient per her report is 10 days from last opiate abuse I do not suspect her presentation is related to opiate withdrawal. At any rate opioid drawl is not acute life-threatening that require additional inpatient evaluation. Close outpatient follow-up 180 was recommended. The patient and/or family, caregivers express understanding. The patient and/or family, caregivers agrees with the plan. Shared decision making: I will have a discussion with the patient and or visitors regarding risk/benefits of further testing or admission. They will be made aware of of the risk/benefits inherent in this decision they will be given the opportunity to voice understanding. Total critical care time today provided was at least 0 minutes. This excludes separately billable procedures. Critical care time (if documented) is secondary to the patient having high probability of clinically significant/life threatening deterioration in the patient's condition which required my urgent intervention. Impression: 1. Malaise 2. History of substance abuse 3. Leukocytosis Dispo: Discharge This note was generated with [employer] dictation software. It may contain incorrect words, spelling, and punctuation that were not noted in review of the chart prior to signing. Lab Data Labs: Laboratory Results - last 24 hr 12/16/24 12/16/24 13:09 13:42 WBC 12.1 H RBC 4.50 Hgb 14.2 Hct 40.2 MCV 89.3 MCH 31.6 MCHC 35.3 RDW Std Deviation 39.5 RDW Coeff of Denys 12.0 Plt Count 358 MPV 9.3 Immature Gran % (Auto) 0.400 Neut % (Auto) 77.9 H Lymph % (Auto) 16.7 L [place] % (Auto) 4.3 Eos % (Auto) 0.1 Baso % (Auto) 0.6 Absolute Neuts (auto) 9.5 H Absolute Lymphs (auto) 2.03 Nucleated RBC % 0 Sodium 139 Potassium 3.8 Chloride 106 Carbon Dioxide 21.4 Anion Gap 12 BUN 6 Creatinine 0.75 Estim Creat Clear Calc 87.46 Est GFR (MDRD) Non-Af 101 BUN/Creatinine Ratio 7.4 L Glucose 115 H Calcium 9.2 Total Bilirubin 0.29 AST 15 ALT 10 Alkaline Phosphatase 61 Total Protein 6.5 Albumin 4.0 Globulin 2.5 Albumin/Globulin Ratio 1.6 Lipase 40 Urine Color Yellow Urine Clarity Sl. Cloudy Urine pH 8.0 Ur Specific [place] 1.010 Urine Protein 30 H Urine Glucose (UA) Normal Urine Ketones 5 H Urine Occult Blood Negative Urine Nitrite Negative Urine Bilirubin Negative Urine Urobilinogen Normal Ur Leukocyte Esterase 25 H Urine RBC 0 SEEN Urine WBC 0 SEEN Ur Squamous Epith Cells 25-50 SEEN Urine Bacteria RARE Urine Mucus 0 SEEN Urine Test Negative Radiography Diagnostic Testing: Clinical Impression(s) from Imaging Studies Chest X-Ray 12/16/24 12:59 IMPRESSION: Negative Chest. Reading Location: [id number] Discharge Plan Triage Chief Complaint: Substance Abuse ED Provider: Iain Reina Dx/Rx/DC Orders Prescriptions: No Action trazodone 100 MG tablet 100 mg PO QHS (DME) BreatheRite MDI Spacer Spacer MISCELLANEOUS X1 ondansetron HCl 4 mg tablet 4 mg PO TID PRN PRN (Reason: nausea/vomiting) alprazolam 0.5 mg tablet 0.5 mg PO BID PRN PRN (Reason: anxiety) albuterol sulfate 90 mcg/actuation HFA aerosol inhaler 2 puff inhalation Q4H PRN PRN (Reason: wheezing) Patient Comments: has not used since she had pneumonia in summer 2023 duloxetine 20 mg capsule,delayed release(DR/EC) 20 mg PO DAILY Primary Care Provider: Tamika Mario Referrals: Tamika Mario MD [Primary Care Provider] - Print Language: Vincentian
--- NOTE | 2024-12-16 12:59 | RAD_ITS ---
PROCEDURE: CHEST 1 VIEW (PORTABLE) 12/16/2024 REASON FOR EXAM: SOB TECHNIQUE: Frontal view of the chest. COMPARISON: Chest radiograph 01/05/2022. FINDINGS: Hardware: None. Heart: The heart size is normal. Lungs: No focal consolidation, pleural effusion or pneumothorax. Bones: The bones are unremarkable. RAD/Chest 1 View (Portable) IMPRESSION: Negative Chest. Reading Location: [id number]
--- NOTE | 2024-12-16 13:00 | EKG12_ITS ---
Test Reason : SUBSTANCE ABUSE Blood Pressure : */* mmHG Vent. Rate : 70 BPM Atrial Rate : 70 BPM P-R Int : 162 ms QRS Dur : 86 ms QT Int : 460 ms P-R-T Axes : 27 72 57 degrees QTcB Int : 496 ms Normal sinus rhythm Prolonged QT Abnormal ECG Confirmed by GERALDO CHAPIN MD ([id number]), commissioning editor DENNY VICENTE ([id number]) on 12/18/2024 6:44:24 AM Referred By: Confirmed By: GERALDO CHAPIN MD
[2024-12-16 13:14] LABS: Absolute Lymphocyte Count 2.03 X10^3/uL (0.83-4.51); Absolute Neutrophil Count 9.5 X10^3/uL (2.0-7.7); Basophil# 0.07 X10^3/uL; Basophil% 0.6 % (0-1); Eosinophil# 0.01 X10^3/uL; Eosinophils% 0.1 % (0-5); Hematocrit 40.2 % (37-47); Hemoglobin 14.2 g/dL (12.0-15.0); Lymphocyte # 2.03 X10^3/ul (0.83-4.51); Lymphocyte % 16.7 % (19-41); Mean Corp Hgb Conc 35.3 g/dL (32-36); Mean Corpuscular Hgb 31.6 pg (27.0-32.0); Mean Corpuscular Volume 89.3 fL (81-99); Mean Platelet Vol. 9.3 fl (6.2-12.0); Monocyte# 0.52 X10^3/uL; Monocyte% 4.3 % (0-10); NRBC Flagged by Analyzer 0 % (0-5); Neutrophil # 9.46 X10^3/uL (2.7-7.7); Neutrophil % 77.9 % (47-70); Platelet Count 358 K/mm3 (150-450); RBC Distribution Width SD 39.5 fl (35.1-43.9); White Blood Count 12.1 K/mm3 (4.4-11.0)
[2024-12-16] MEDS: hydrOXYzine 10 MG Tablet PO (13:33)
--- NOTE | 2024-12-16 13:36 | ED.RN ---
1337: PT. INFORMED FOR THE NEED OF A URINE SAMPLE. PT. INSTRUCTED TO USE THE CALL LIGHT WHENEVER SHE HAS TO GO TO THE BATHROOM. AT THIS TIME THE PT. JUMPED OUT OF BED RIPPING THE MONITORING EQUIPMENT OFF, APPEARING VERY AGITATED AND MUMBLING TO HERSELF. SOCIAL WORK, PT. MOTHER, AND REGISTRATION AT BEDSIDE AT TIME OF BEHAVIOR. PT. WALKED HERSELF TO THE BATHROOM AND SLAMMED THE DOOR.
--- OUTSIDE RECORDS SUMMARY | 2024-12-16 13:42 | XMS RPT_ITS | CCD ---
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 distribution width (RBC) [Ratio] 12.6 % Normal 11.6-14.6 [facility] Comment on above: Performed By: #### L 400.0001 #### [facility] [address] [place], [address] Hematocrit (Bld) [Volume fraction] 37.1 % Normal 37-47 [facility] Comment on above: Performed By: #### L 400.0001 #### [facility] [address] [place], [address] Hemoglobin (Bld) [Mass/Vol] 12.9 g/dL Normal 12.0-15.0 [facility] Comment on above: Performed By: #### L 400.0001 #### [facility] [address] [place], [address] IG% 0.400 Normal 0.0-0.9 [facility] Comment on above: Result Comment: IG% - Immature Granulocytes (promyelocytes, myelocytes and metamyelocytes) > 1% indicates that a LEFT SHIFT is Present. Performed By: #### L 400.0001 #### [facility] [address] [place], [address] Lymphocytes/100 WBC (Bld) 31.8 % Normal 19-41 [facility] Comment on above: Performed By: #### L 400.0001 #### [facility] [address] [place], [address] MCH (RBC) [Entitic mass] 32.3 pg High 27.0-32.0 [facility] Comment on above: Performed By: #### L 400.0001 #### [facility] [address] [place], [address] MCHC (RBC) [Mass/Vol] 34.8 g/dL Normal 32-36 [facility] Comment on above: Performed By: #### L 400.0001 #### [facility] [address] [place], [address] MCV (RBC) [Entitic vol] 93.0 fL Normal 81-99 [facility] Comment on above: Performed By: #### L 400.0001 #### [facility] [address] [place], [address] Monocytes/100 WBC (Bld) 6.5 % Normal 0-10 [facility] Comment on above: Performed By: #### L 400.0001 #### [facility] [address] [place], [address] Neutrophils/100 WBC (Bld) 58.7 % Normal 47-70 [facility] Comment on above: Performed By: #### L 400.0001 #### [facility] [address] [place], [address] Nucleated RBC (Bld) [#/Vol] 0 10*3/uL Normal 0-5 [facility] Comment on above: Performed By: #### L 400.0001 #### [facility] [address] [place], [address] Platelet mean volume (Bld) [Entitic vol] 9.4 fL Normal 6.2-12.0 [facility] Comment on above: Performed By: #### L 400.0001 #### [facility] [address] [place], [address] Platelets (Bld) [#/Vol] 246 10*3/uL Normal 150-450 [facility] Comment on above: Performed By: #### L 400.0001 #### [facility] [address] [place], [address] RBC (Bld) [#/Vol] 3.99 10*6/uL Low 4.2-5.4 [facility] Comment on above: Performed By: #### L 400.0001 #### [facility] [address] [place], [address] RDW SD 43.0 fl Normal 35.1-43.9 [facility] Comment on above: Performed By: #### L 400.0001 #### [facility] [address] [place], [address] WBC (Bld) [#/Vol] 9.3 10*3/uL Normal 4.4-11.0 [facility] Comment on above: Performed By: #### L 400.0001 #### [facility] [address] [place], [address] Emergency Department Summary on 08-28-2024 Emergency Department Summary [facility] Medical Records Department [address] [place] [address] Emergency Department Summary 08/28/24 MR#: [id number] Acct: [id number] Name: PAT MEDINA Rep #: [id number] : 1980 44 From: Reny Painter DO [...] denies any alcohol or other drug use. [facility] Medical History Marijuana use Right rotator cuff [...] Temperature Source (more content not included)... Normal [facility] Lactic Acidon 08-28-2024 Lactate [Moles/Vol] 1.1 mmol/L Normal 0.0-2.0 [facility] Comment on above: Order Comment: Y Performed By: #### L 503.5510 #### [facility] [address] [place], [address] Lipaseon 08-28-2024 Lipase [Catalytic activity/Vol] 31 U/L Normal 13-75 [facility] Comment on above: Result Comment: Padma gee note: LIPASE revised reference range effective 22. New Lipase methodology. Expected to produce lower values than the previous assay method. NEW Reference Range: 13 - 75 U/L Performed By: #### L 503.5510 #### [facility] [address] [place], [address] Liver Profileon 08-28-2024 Albumin [Mass/Vol] 3.5 g/dL Normal 3.5-5.0 [facility] Comment on above: Performed By: #### L 503.5510 #### [facility] [address] [place], [address] ALK PHOS 57 U/L Normal 35-104 [facility] Comment on above: Performed By: #### L 503.5510 #### [facility] [address] [place], [address] ALT [Catalytic activity/Vol] 10 U/L Normal <=34 [facility] Comment on above: Performed By: #### L 503.5510 #### [facility] [address] [place], [address] AST [Catalytic activity/Vol] 26 U/L Normal <=31 [facility] Comment on above: Performed By: #### L 503.5510 #### [facility] [address] [place], [address] D BILI < 0.08 Normal 0.00-0.30 [facility] Comment on above: Performed By: #### L 503.5510 #### [facility] [address] [place], [address] Globulin (S) [Mass/Vol] 2.6 g/dL Normal 2.2-4.2 [facility] Comment on above: Performed By: #### L 503.5510 #### [facility] [address] [place], [address] T BILI < 0.15 Normal 0.00-1.30 [facility] Comment on above: Performed By: #### L 503.5510 #### [facility] [address] [place], [address] T PROT 6.0 g/dL Normal 5.9-8.4 [facility] Comment on above: Performed By: #### L 503.5510 #### [facility] [address] [place], [address] Urinalysis, Completeon 08-28 BACTERIA Normal None Seen [facility] Comment on above: Order Comment: CLEAN CATCH Result Comment: PT D EP ER ED.M Performed By: #### L 400.0001 #### [facility] [address] [place], [address] BILIRUBIN URINE Normal Negative [facility] Comment on above: Order Comment: CLEAN CATCH Result Comment: PT D EP ER ED.M Performed By: #### L 400.0001 #### [facility] [address] [place], [address] Clarity (U) Normal Clear [facility] Comment on above: Order Comment: CLEAN CATCH Result Comment: PT D EP ER ED.M Performed By: #### L 400.0001 #### [facility] [address] [place], [address] Color (U) Normal Yellow [facility] Comment on above: Order Comment: CLEAN CATCH Result Comment: PT D EP ER ED.M Performed By: #### L 400.0001 #### [facility] [address] [place], [address] EPI,SQUAMOUS Normal 5-10 [facility] Comment on above: Order Comment: CLEAN CATCH Result Comment: PT D EP ER ED.M Performed By: #### L 400.0001 #### [facility] [address] [place], [address] GLUCOSE, UR Normal Normal [facility] Comment on above: Order Comment: CLEAN CATCH Result Comment: PT D EP ER ED.M Performed By: #### L 400.0001 #### [facility] [address] [place], [address] KETONE UR Normal Negative [facility] Comment on above: Order Comment: CLEAN CATCH Result Comment: PT D EP ER ED.M Performed By: #### L 400.0001 #### [facility] [address] [place], [address] LEUK ESTERASE Normal Negative [facility] Comment on above: Order Comment: CLEAN CATCH Result Comment: PT D EP ER ED.M Performed By: #### L 400.0001 #### [facility] [address] [place], [address] Mucus Ql (Urine sed) Normal [facility] Comment on above: Order Comment: CLEAN CATCH Result Comment: PT D EP ER ED.M Performed By: #### L 400.0001 #### [facility] [address] [place], [address] Nitrite Ql (U) Normal Negative [facility] Comment on above: Order Comment: CLEAN CATCH Result Comment: PT D EP ER ED.M Performed By: #### L 400.0001 #### [facility] [address] [facility] [address] OCCULT BLOOD-UR Normal Negative [facility] Comment on above: Order Comment: CLEAN CATCH Result Comment: PT D EP ER ED.M Performed By: #### L 400.0001 #### [facility] [address] [facility] [address] pH UR Normal 5.0 - 8.0 [facility] Comment on above: Order Comment: CLEAN CATCH Result Comment: PT D EP ER ED.M Performed By: #### L 400.0001 #### [facility] [address] [place], [address] PROT DIPSTX Normal Negative [facility] Comment on above: Order Comment: CLEAN CATCH Result Comment: PT D EP ER ED.M Performed By: #### L 400.0001 #### [facility] [address] [place], [address] RBC Normal 0-5 [facility] Comment on above: Order Comment: CLEAN CATCH Result Comment: PT D EP ER ED.M Performed By: #### L 400.0001 #### [facility] [address] [place], [address] SP.GR. DIPSTX Normal 1.002-1.030 [facility] Comment on above: Order Comment: CLEAN CATCH Result Comment: PT D EP ER ED.M Performed By: #### L 400.0001 #### [facility] [address] [facility] [address] UR Preservative Normal [facility] Comment on above: Order Comment: CLEAN CATCH Result Comment: PT D EP ER ED.M Performed By: #### L 400.0001 #### [facility] [address] [place], [address] UROBILI Normal Normal [facility] Comment on above: Order Comment: CLEAN CATCH Result Comment: PT D EP ER ED.M Performed By: #### L 400.0001 #### [facility] [address] [place], [address] WBC Normal 0-5 [facility] Comment on above: Order Comment: CLEAN CATCH Result Comment: PT D EP ER ED.M Performed By: #### L 400.0001 #### [facility] [address] [place], [address] Abdomen/Pelvis W IV Cont ONL Yon 08-26-2024 Abdomen/Pelvis W IV Cont ONLY [facility] Imaging Services [address] [place] [address] Abdomen/Pelvis W IV Cont ONLY MR#: [id number] Acct: [id number] Name: PAT MEDINA Rep #: [id number] : 1980 F 44 From: Navi Graham MD PCP: Dr. Maile Norman MD Status: REG ER Study: Abdomen/Pelvis W IV Cont ONLY Date of Exam: Exam# [id number] Ordering Dr: Navi Cruz PANTS PRESSER-C PROCEDURE: ABDOMEN/PELVIS W IV CONT ONLY REASON [...] use of iterative reconstruction technique). [facility] CC: LISSA Cruz; Dr. Maile Norman MD Town Marshal: Signed Normal [facility] CBC W/Diff, Automatedon 0 Absolute Lymph 1.12 X10 3/uL Normal 0.83-4.51 [facility] Comment on above: Performed By: #### L 503.5510 #### [facility] [address] [place], [address] Absolute Neut 19.4 X10 3/uL High 2.0-7.7 [facility] Comment on above: Performed By: #### L 503.5510 #### [facility] [address] [place], [address] Basophils/100 WBC (Bld) 0.3 % Normal 0-1 [facility] Comment on above: Performed By: #### L 503.5510 #### [facility] [address] [place], [address] Eosinophils/100 WBC (Bld) 0.3 % Normal 0-5 [facility] Comment on above: Performed By: #### L 503.5510 #### [facility] [address] [place], [address] Erythrocyte distribution width (RBC) [Ratio] 12.7 % Normal 11.6-14.6 [facility] Comment on above: Performed By: #### L 503.5510 #### [facility] [address] [place], [address] Hematocrit (Bld) [Volume fraction] 50.4 % High 37-47 [facility] Comment on above: Performed By: #### L 503.7110 #### [facility] [address] [place], [address] Hemoglobin (Bld) [Mass/Vol] 17.4 g/dL High 12.0-15.0 [facility] Comment on above: Performed By: #### L 503.5510 #### [facility] [address] [place], [address] IG% 0.400 Normal 0.0-0.9 [facility] Comment on above: Result Comment: IG% - Immature Granulocytes (promyelocytes, myelocytes and metamyelocytes) > 1% indicates that a LEFT SHIFT is Present. Performed By: #### L [id number] #### [facility] [address] [place], [address] Lymphocytes/100 WBC (Bld) 5.2 % Low 19-41 [facility] Comment on above: Performed By: #### L 503.5510 #### [facility] [address] [place], [address] MCH (RBC) [Entitic mass] 32.3 pg High 27.0-32.0 [facility] Comment on above: Performed By: #### L 503.5510 #### [facility] [address] [place], [address] MCHC (RBC) [Mass/Vol] 34.5 g/dL Normal 32-36 [facility] Comment on above: Performed By: #### L [id number] #### [facility] [address] [place], [address] MCV (RBC) [Entitic vol] 93.7 fL Normal 81-99 [facility] Comment on above: Performed By: #### L 342.5510 #### [facility] [address] [place], [address] Monocytes/100 WBC (Bld) 3.3 % Normal 0-10 [facility] Comment on above: Performed By: #### L 503.5510 #### [facility] [address] [place], [address] Neutrophils/100 WBC (Bld) 90.5 % High 47-70 [facility] Comment on above: Performed By: #### L 503.5510 #### [facility] [address] [place], [address] Nucleated RBC (Bld) [#/Vol] 0 10*3/uL Normal 0-5 [facility] Comment on above: Performed By: #### L 503.5510 #### [facility] [address] [place], [address] Platelet mean volume (Bld) [Entitic vol] 9.4 fL Normal 6.2-12.0 [facility] Comment on above: Performed By: #### L 503.5510 #### [facility] [address] [place], [address] Platelets (Bld) [#/Vol] 414 10*3/uL Normal 150-450 [facility] Comment on above: Performed By: #### L 503.5510 #### [facility] [address] [place], [address] RBC (Bld) [#/Vol] 5.38 10*6/uL Normal 4.2-5.4 [facility] Comment on above: Performed By: #### L 503.5510 #### [facility] [address] [place], [address] RDW SD 43.9 fl Normal 35.1-43.9 [facility] Comment on above: Performed By: #### L 503.5510 #### [facility] [address] [place], [address] WBC (Bld) [#/Vol] 21.5 10*3/uL High 4.4-11.0 [facility] Comment on above: Performed By: #### L 503.5510 #### [facility] [address] [place], [address] Comprehensive Metabolic Prof ilon 08-26-2024 Albumin [Mass/Vol] 5.0 g/dL Normal 3.5-5.0 [facility] Comment on above: Performed By: #### L 503.5510 #### [facility] [address] [place], [address] Albumin/Globulin [Mass ratio] 1.5 {ratio} Normal 0.9-2.4 [facility] Comment on above: Performed By: #### L 503.5510 #### [facility] [address] [place], [address] ALK PHOS 83 U/L Normal 35-104 [facility] Comment on above: Performed By: #### L 503.5510 #### [facility] [address] [place], [address] ALT [Catalytic activity/Vol] 11 U/L Normal <=34 [facility] Comment on above: Performed By: #### L 503.5510 #### [facility] [address] [place], [address] Anion gap [Moles/Vol] 15 mmol/L Normal 5-15 [facility] Comment on above: Performed By: #### L 503.5510 #### [facility] [address] [place], [address] AST [Catalytic activity/Vol] 25 U/L Normal <=31 [facility] Comment on above: Result Comment: Hemo lysis present, Results??could be affected. ?? Performed By: #### L 503.5510 #### [facility] [address] [place], [address] Bilirubin [Mass/Vol] 0.50 mg/dL Normal 0.00-1.30 [facility] Comment on above: Performed By: #### L [id number] #### [facility] [address] [place], [address] BUN/CRE 9.2 RATIO Low 10-20 [facility] Comment on above: Performed By: #### L 503.5510 #### [facility] [address] [place], [address] Calcium [Mass/Vol] 9.4 mg/dL Normal 7.6-11.0 [facility] Comment on above: Performed By: #### L 503.5510 #### [facility] [address] [place], [address] Chloride [Moles/Vol] 104 mmol/L Normal 96-108 [facility] Comment on above: Performed By: #### L 781.5510 #### [facility] [address] [place], [address] CO2 [Moles/Vol] 25.8 mmol/L Normal 22.0-29.0 [facility] Comment on above: Performed By: #### L 503.5510 #### [facility] [address] [place], [address] Creatinine [Mass/Vol] 0.93 mg/dL Normal 0.70-1.20 [facility] Comment on above: Performed By: #### L 499.5510 #### [facility] [address] [place], [address] ECRCL 70.14 ml/min Normal 50-250 [facility] Comment on above: Performed By: #### L 155.5510 #### [facility] [address] [place], [address] GFR/1.73 sq M.predicted among non-blacks MDRD (S/P/Bld) [Vol rate/Area] 79 mL/min/{1.73_m2} Normal >60 [facility] Comment on above: Result Comment: mL/m in/1.73m2 CKD-EPI Creatinine Equation (2020) Performed By: #### L 503.5510 #### [facility] [address] [place], [address] Globulin (S) [Mass/Vol] 3.3 g/dL Normal 2.2-4.2 [facility] Comment on above: Performed By: #### L 503.5510 #### [facility] [address] [place], [address] Glucose [Mass/Vol] 129 mg/dL High 70-99 [facility] Comment on above: Performed By: #### L 503.5510 #### [facility] [address] [place], [address] Potassium [Moles/Vol] 3.9 mmol/L Normal 3.3-5.1 [facility] Comment on above: Result Comment: Hemo lysis present, Results??could be affected. ?? Performed By: #### L 503.5510 #### [facility] [address] [place], [address] Sodium [Moles/Vol] 145 mmol/L Normal 133-145 [facility] Comment on above: Performed By: #### L 503.5510 #### [facility] [address] [place], [address] T PROT 8.3 g/dL Normal 5.9-8.4 [facility] Comment on above: Performed By: #### L 503.5510 #### [facility] [address] [place], [address] Urea nitrogen [Mass/Vol] 9 mg/dL Normal 4-19 [facility] Comment on above: Performed By: #### L 503.5510 #### [facility] [address] [place], [address] Emergency Department Summary on 08-26-2024 Emergency Department Summary [facility] Medical Records Department [address] [place] [address] Emergency Department Summary 08/26/24 MR#: [id number] Acct: [id number] Name: PAT MEDINA Rep #: [id number] : 1980 44 From: Xavi Biggs MD [...] was several years ago. Here for evaluation. [facility] Medical History Marijuana use Right rotator cuff [...] auscultation bilaterally. (more content not included)... Normal [facility] Lipaseon 08-26-2024 Lipase [Catalytic activity/Vol] 79 U/L High 13-75 [facility] Comment on above: Result Comment: Padma gee note: LIPASE revised reference range effective 22. New Lipase methodology. Expected to produce lower values than the previous assay method. NEW Reference Range: 13 - 75 U/L Performed By: #### L 503.5510 #### [facility] [address] [place], [address] M100.678on 08-26-2024 M100.678 Pending SARS-CoV-2 (COVID 19) Negative INFLUENZA A Negative INFLUENZA B Negative RSV PCR Negative Normal [facility] Comment on above: Performed By: #### M 100.678 ####[facility] [address] [place], [address] ,Serum,hCG Quali.on 08-26-2024 HCG, SERUM QUAL Negative Normal [facility] Comment on above: Performed By: #### L 700.6800 #### [facility] [address] [place], [place], [address] Urinalysis, Completeon 08-26 AMORPHOUS 1+ URATE Normal [facility] Comment on above: Order Comment: COLLE CTOR TO SPECIFY Performed By: #### L 400.0001 #### [facility] [address] [place], [address] EPI,SQUAMOUS 0-5 SEEN Normal 5-10 [facility] Comment on above: Order Comment: COLLE CTOR TO SPECIFY Performed By: #### L 400.0001 #### [facility] [address] [place], [address] RBC 0-5 SEEN Normal 0-5 [facility] Comment on above: Order Comment: COLLE CTOR TO SPECIFY Performed By: #### L 400.0001 #### [facility] [address] [place], [address] WBC 0-5 SEEN Normal 0-5 [facility] Comment on above: Order Comment: COLLE CTOR TO SPECIFY Performed By: #### L 400.0001 #### [facility] [address] [place], [address] BACTERIA 0 SEEN Normal None Seen [facility] Comment on above: Order Comment: CANDIDO CTOR TO SPECIFY Performed By: #### L 400.0001 #### [facility] [address] [place], [address] Mucus Ql (Urine sed) 0 SEEN Normal [facility] Comment on above: Order Comment: COLLE CTOR TO SPECIFY Performed By: #### L 400.0001 #### [facility] [address] [place], [address] CNPNon 08-18-2024 CNPN Normal [facility] Plastic Surgery Visit Report on 08-14-2024 Plastic Surgery Visit Report [facility] Plastic Reconstructive Surgery [address] [place] [address] OFFICE VISIT Date of Service: 08/14/24 MR#: [id number] Acct: [id number] Name: PAT MEDINA Rep #: [id number] : 1980 Provider: Dr. Constanza esposito MD Age/Sex: 44/F Location: [facility] [place] Status: Signed Intake Vital [...] Foreign body reaction of the skin L92.3 [facility] Medical History Marijuana use Right rotator cuff [...] needed 08/14/24 1640 Date Constanza Cordova [facility] Signature: Date (if applicable) CC: Normal [facility] CNPNon 08-08-2024 CNPN Normal [facility] Large Joint Arthro/Inj: R sh [...] the patient voiced understanding of these instructions. [facility] CNOVon 07-31-2024 CNOV Normal [facility] CNOVon 07-27-2024 CNOV Normal [facility] Emergency Department Summary on 07-20-2024 Emergency Department Summary [facility] Medical Records Department [address] [place] [address] Emergency Department Summary 07/20/24 MR#: [id number] Acct: [id number] Name: PAT MEDINA Rep #: [id number] : 1980 44 From: Cesar Marroquin DO PCP: Dr. Maile Norman MD Status:REG [...] days. Therefore since she has been taking ztqy-vsp-uuramwm medication as well as her prescription medication without symptom improvement she presents for pain control. [facility] Medical History Marijuana use Right rotator cuff [...] intact; AIN/ (more content not included)... Normal [facility] Discharge Instructionon 06-28 Discharge Instruction [facility] Medical Records Department [address] [place] [address] Instructions for Home/Discharge Instructions 07/19/24 1251 MR#: [id number] Acct: [id number] Name: PAT MEDINA Rep #: [id number] : 1980 44 From: Constanza Cordova MD PCP: Dr. Maile Norman MD Status:REG [facility] Discharge Instructions Dressing / Incision Additional Dressing/Incision [...] Care Provider: Maile Norman Instructions Print Language: Turkish Discharge Orders/Prescriptions Prescriptions: New cephalexin 500 mg [...] MD CC: Dr. Maile Norman MD Signed [facility] MR/POSTOP.[facility] 07-19-2024 MR/POSTOP.[facility] Medical Records Department [address] [place] [address] Anesthesia Postop Eval I 07/19/24 1257 MR#: [id number] Acct: [id number] Name: PAT MEDINA Rep #: [id number] : 1980 44 From: Trinity Wright CRNA PCP: Dr. Maile Norman MD Status:REG SDC Y Race: C Location: [address] Anesthesia: Postop Eval I Current Vital Signs [...] 1 completed: Yes 07/19/24 1258 Date Trinity Cathydonnell ROUTE DELIVERY SERVICE DRIVER Cosigner Signature: Date CC: Signed Normal [facility] MR/[id number] 07-19-2024 [facility] Medical Records Department [address] [place] [address] Anesthesia Postop Eval II 07/19/24 1914 MR#: [id number] Acct: [id number] Name: PAT MEDINA Rep #: [id number] : 1980 44 From: Samy Rae MD PCP: Dr. Maile Norman MD Status:[facility] Y Race: C Location: [facility] Anesthesia Postop Eval I Sum Postop Eval Completion status Anesthesia document: Postop Eval 1 completed: Yes Anesthesia Postop Eval I Summary Anesthesia Postop Eval I Summary: Anesthesia Postop Eval I: Assessment Summary Airway patent Yes 07/19/24 12:58 ROUTE DELIVERY [employer]ICE DRIVER.JSWI Spontaneous unlabored Yes 07/19/24 12:58 ROUTE DELIVERY SERVICE DRIVER.JSWI respirations Mental status Awake 07/19/24 12:58 ROUTE DELIVERY SERVICE DRIVER.JSWI nausea No 07/19/24 12:58 ROUTE DELIVERY SERVICE DRIVER.JSWI Vomiting No 07/19/24 12:58 ROUTE DELIVERY SERVICE DRIVER.JSWI Anesthesia Postop Eval I: Fluid Summary Crystalloid volume administer 1,200 07/19/24 12:58 ROUTE DELIVERY SERVICE DRIVER.JSWI (ml) Colloids volume administered ( ml) Blood Product volume administered (ml) Total IV fluid infused 1,200 07/19/24 12:58 ROUTE DELIVERY SERVICE DRIVER.JSWI Anesthesia Postop Eval I: Summary Notes Anesthesia Complication No 07/19/24 12:58 ROUTE DELIVERY SERVICE DRIVER.JSWI Anesthesia Complication Comment: Post-operative progress note Anesthesia: Postop Eval II Evaluation Mental status: Awake and Calm Pain Level: 1 nausea: No Vomiting: No Complications Anesthesia Complication: No 07/19/24 1914 Date Samy Rae MD Cosigner Signature: Date CC: Signed Normal [facility] Operative Reporton 5 Operative Report [facility] Medical Records Department [address] [place] [address] Operative Report 07/19/24 1254 MR#: [id number] Acct: [id number] Name: PAT MEDINA Rep #: [id number] : 1980 44 From: Constanza Cordova MD PCP: Dr. Maile Norman MD Status:[facility] Location: [place] [address] Problems Associated Problem List Diagnoses (1) Neoplasm of uncertain behavior of connective and other soft tissue: Operative Report (Standard) Operative Information Date of Procedure: 07/19/24 Pre-Operative Diagnosis: Subcutaneous cyst left forearm Post-Operative Diagnosis: Same Surgery/Procedure Performed: Excision cyst left forearm (3.0 cm) senior cyber intelligence analyst: No Type of Anesthesia: General RN Documented [...] Documentation VTE Mechan Device Prophylaxis: SCD's 07/19/24 8078 Cosigner Signature (if applicable): CC: Dr. Maile Norman MD; Dr. Constanza Cordova MD Signed Normal [facility] Surgery Specimen Level IIIon 07-19-2024 Surgery Specimen Level III -------- Patient Age/Sex Location Account Attending Physician -------- PAT MEDINA 44/F [facility] [id number] Dr. Constanza Cordova MD -------- Specimen: [id number] Received: 07/19/24 Status: JEAN Bro Num: [id number] Spec Type: Cyst Subm Dr: Dr. Constanza [...] entirely in one cassette. . 07/19/2024 TC:2 CPT:66650 -------- Patient Age/Sex Location Account Attending Physician -------- PAT MEDINA 44/F [facility] [id number] Dr. Constanza Cordova MD -------- Signed (signature on file) Dr. Dusty Armstrong MD 07/20/24 1244 -------- Normal [facility] Comment on above: Performed By: #### P RHIANNONIII ####[facility] [id number] [place], [place], [id number] Afshin 07-16-2024 CNPN Normal [facility] CBC W Auto Differential pane l (Bld)on 07-13-2024 Basophils (Bld) [#/Vol] 0.10 10*3/uL [facility] Basophils/100 WBC (Bld) 1.0 % [facility] Differential cell count method Nom (Bld) Auto [facility] Eosinophils (Bld) [#/Vol] 0.27 10*3/uL [facility] Eosinophils/100 WBC (Bld) 2.7 % [facility] Erythrocyte distribution width (RBC) [Ratio] 12.2 % 11.5 - 15.0 % [facility] Hematocrit (Bld) [Volume fraction] 41.9 % 36.0 - 46.0 % [facility] Hemoglobin (Bld) [Mass/Vol] 14.2 g/dL 11.5 - 15.5 g/dL [facility] Immature granulocytes (Bld) [#/Vol] 0.03 10*3/uL [facility] Immature granulocytes/100 WBC (Bld) 0.3 % [facility] Lymphocytes (Bld) [#/Vol] 3.19 10*3/uL [facility] Lymphocytes/100 WBC (Bld) 32.4 % [facility] MCH (RBC) [Entitic mass] 32.1 pg 26.0 - 34.0 pg [facility] MCHC (RBC) [Mass/Vol] 33.9 g/dL 30.5 - 36.0 g/dL [facility] MCV (RBC) [Entitic vol] 94.6 fL 80.0 - 100.0 fL [facility] Monocytes (Bld) [#/Vol] 0.74 10*3/uL [facility] Monocytes/100 WBC (Bld) 7.5 % [facility] Neutrophils (Bld) [#/Vol] 5.52 10*3/uL [facility] Neutrophils/100 WBC (Bld) 56.1 % [facility] Nucleated RBC (Bld) [#/Vol] [facility] Nucleated RBC/100 WBC (Bld) [Ratio] 0.0 % /100 WBC [facility] Platelet mean volume (Bld) [Entitic vol] 9.6 fL 9.0 - 12.7 fL [facility] Platelets (Bld) [#/Vol] 308 10*3/uL [facility] RBC (Bld) [#/Vol] 4.43 10*6/uL 3.90 - 5.2 0 m/uL [facility] WBC (Bld) [#/Vol] 9.85 10*3/uL [facility] Basophils (Bld) [#/Vol] 0.10 10*3/uL Normal <0.11 [facility] Comment on above: Order Comment: Speci men Type: BLOOD SPECIMENOrdering Facility: [facility] Address: [address] [place] [address] Performed By: #### 5 7021-8 ####[facility] LABCLIA [id number] [place] [address] [place] Basophils/100 WBC (Bld) 1.0 % Normal [facility] Comment on above: Order Comment: Speci men Type: BLOOD SPECIMENOrdering Facility: [facility] Address: [address] [place] [address] Performed By: #### 5 7021-8 ####[facility] LABCLIA [id number] [place] [address] [place] Differential cell count method Nom (Bld) Auto Normal [facility] Comment on above: Order Comment: Speci men Type: BLOOD SPECIMENOrdering Facility: [facility] Address: [address] [place] [address] Performed By: #### 5 7021-8 ####[facility] LABCLIA [id number] [place] [address] [place] Eosinophils (Bld) [#/Vol] 0.27 10*3/uL Normal <0.46 [facility] Comment on above: Order Comment: Speci men Type: BLOOD SPECIMENOrdering Facility: [facility] Address: [address] [place] [address] Performed By: #### 5 7021-8 ####[facility] LABCLIA [id number] [place] [address] [place] Eosinophils/100 WBC (Bld) 2.7 % Normal [facility] Comment on above: Order Comment: Speci men Type: BLOOD SPECIMENOrdering Facility: [facility] Address: [address] [place] [address] Performed By: #### 5 7021-8 ####[facility] LABCLIA [id number] [place] [address] [place] Erythrocyte distribution width (RBC) [Ratio] 12.2 % Normal 11.5-15.0 [facility] Comment on above: Order Comment: Speci men Type: BLOOD SPECIMENOrdering Facility: [facility] Address: [address] [place] [address] Performed By: #### 5 7021-8 ####[facility] LABIA [id number] [place] [address] [place] Hematocrit (Bld) [Volume fraction] 41.9 % Normal 36.0-46.0 [facility] Comment on above: Order Comment: Speci men Type: BLOOD SPECIMENOrdering Facility: [facility] Address: [address] [place] [address] Performed By: #### 5 7021-8 ####[facility] LABIA [id number] [place] [address] [place] Hemoglobin (Bld) [Mass/Vol] 14.2 g/dL Normal 11.5-15.5 [facility] Comment on above: Order Comment: Speci men Type: BLOOD SPECIMENOrdering Facility: [facility] Address: [address] [place] [address] Performed By: #### 5 7021-8 ####[facility] LABCLIA [id number] [place] [address] [place] Immature granulocytes (Bld) [#/Vol] 0.03 10*3/uL Normal <0.10 [facility] Comment on above: Order Comment: Speci men Type: BLOOD SPECIMENOrdering Facility: [facility] Address: [address] [place] [address] Performed By: #### 5 7021-8 ####[facility] LABCLIA [id number] [place] [address] [place] Immature granulocytes/100 WBC (Bld) 0.3 % Normal [facility] Comment on above: Order Comment: Speci men Type: BLOOD SPECIMENOrdering Facility: [facility] Address: [address] [place] [address] Performed By: #### 5 7021-8 ####[facility] LABCLIA [id number] [place] [address] [place] Lymphocytes (Bld) [#/Vol] 3.19 10*3/uL Normal 1.00-4.00 [facility] Comment on above: Order Comment: Speci men Type: BLOOD SPECIMENOrdering Facility: [facility] Address: [address] [place] [address] Performed By: #### 5 7021-8 ####[facility] LABCLIA [id number] [place] [address] [place] Lymphocytes/100 WBC (Bld) 32.4 % Normal [facility] Comment on above: Order Comment: Speci men Type: BLOOD SPECIMENOrdering Facility: [facility] Address: [address] [place] [address] Performed By: #### 5 7021-8 ####[facility] LABCLIA [id number] [place] [address] [place] MCH (RBC) [Entitic mass] 32.1 pg Normal 26.0-34.0 [facility] Comment on above: Order Comment: Speci men Type: BLOOD SPECIMENOrdering Facility: [facility] Address: [address] [place] [address] Performed By: #### 5 7021-8 ####[facility] LABCLIA [id number] [id number] [address] [place] MCHC (RBC) [Mass/Vol] 33.9 g/dL Normal 30.5-36.0 [facility] Comment on above: Order Comment: Speci men Type: BLOOD SPECIMENOrdering Facility: [facility] Address: [address] [place] [address] Performed By: #### 5 7021-8 ####[facility] LABCLIA [id number] [place] [address] [place] MCV (RBC) [Entitic vol] 94.6 fL Normal 80.0-100.0 [facility] Comment on above: Order Comment: Speci men Type: BLOOD SPECIMENOrdering Facility: [facility] Address: [address] [place] [address] Performed By: #### 5 7021-8 ####[facility] LABCLIA [id number] [place] [address] [place] Monocytes (Bld) [#/Vol] 0.74 10*3/uL Normal <0.87 [facility] Comment on above: Order Comment: Speci men Type: BLOOD SPECIMENOrdering Facility: [facility] Address: [address] [place] [address] Performed By: #### 5 7021-8 ####[facility] LABIA [id number] [place] [address] [place] Monocytes/100 WBC (Bld) 7.5 % Normal [facility] Comment on above: Order Comment: Speci men Type: BLOOD SPECIMENOrdering Facility: [facility] Address: [address] [place] [address] Performed By: #### 5 7021-8 ####[facility] LABCLIA [id number] [place] [address] [place] Neutrophils (Bld) [#/Vol] 5.52 10*3/uL Normal 1.45-7.50 [facility] Comment on above: Order Comment: Speci men Type: BLOOD SPECIMENOrdering Facility: [facility] Address: [address] [place] [address] Performed By: #### 5 7021-8 ####[facility] LABCLIA [id number] [place] [address] [place] Neutrophils/100 WBC (Bld) 56.1 % Normal [facility] Comment on above: Order Comment: Speci men Type: BLOOD SPECIMENOrdering Facility: [facility] Address: [address] [place] [address] Performed By: #### 5 7021-8 ####[facility] LABIA [id number] [place] [address] [place] Nucleated RBC (Bld) [#/Vol] 10*3/uL Normal <0.01 [facility] Comment on above: Order Comment: Speci men Type: BLOOD SPECIMENOrdering Facility: [facility] Address: [address] [place] [address] Performed By: #### 5 7021-8 ####[facility] LABIA [id number] [place] [address] [place] Nucleated RBC/100 WBC (Bld) [Ratio] 0.0 /100 WBC Normal [facility] Comment on above: Order Comment: Speci men Type: BLOOD SPECIMENOrdering Facility: [facility] Address: [address] [place] [address] Performed By: #### 5 7021-8 ####[facility] LABIA [id number] [place] [address] [place] Platelet mean volume (Bld) [Entitic vol] 9.6 fL Normal 9.0-12.7 [facility] Comment on above: Order Comment: Speci men Type: BLOOD SPECIMENOrdering Facility: [facility] Address: [address] [place] [address] Performed By: #### 5 7021-8 ####[facility] LABCLIA [id number] [place] [address] [place] Platelets (Bld) [#/Vol] 308 10*3/uL Normal 150-400 [facility] Comment on above: Order Comment: Speci men Type: BLOOD SPECIMENOrdering Facility: [facility] Address: [address] [place] [address] Performed By: #### 5 7021-8 ####[facility] LABIA [id number] [place] [address] [place] RBC (Bld) [#/Vol] 4.43 10*6/uL Normal 3.90-5.20 [facility] Comment on above: Order Comment: Speci men Type: BLOOD SPECIMENOrdering Facility: [facility] Address: [address] [place] [address] Performed By: #### 5 7021-8 ####[facility] [id number] [place] [address] [place] WBC (Bld) [#/Vol] 9.85 10*3/uL Normal 3.70-11.00 [facility] Comment on above: Order Comment: Speci men Type: BLOOD SPECIMENOrdering Facility: [facility] Address: [address] [place] [address] Performed By: #### 5 7021-8 ####[facility] [id number] [place] [address] [place] CNOVon 07-13-2024 CNOV Normal [facility] Comprehensive metabolic 2000 panelon 07-13-2024 Albumin [Mass/Vol] 3.8 g/dL Low 3.9-4.9 [facility] Comment on above: Order Comment: Speci men Type: BLOOD SPECIMENOrdering Facility: [facility] Address: [address] [place] [address] Performed By: #### 2 4323-8 ####[facility] LABCLIA [id number] [place] [id number] [place] ALP [Catalytic activity/Vol] 67 U/L Normal 34-123 [facility] Comment on above: Order Comment: Speci men Type: BLOOD SPECIMENOrdering Facility: [facility] Address: [address] [place] [address] Performed By: #### 2 4323-8 ####[facility] LABCLIA [id number] [place] [address] [place] ALT [Catalytic activity/Vol] 18 U/L Normal 7-38 [facility] Comment on above: Order Comment: Speci men Type: BLOOD SPECIMENOrdering Facility: [facility] Address: [address] [place] [address] Performed By: #### 2 4323-8 ####[facility] LABCLIA [id number] [place] [address] [place] Anion gap [Moles/Vol] 6 mmol/L Low 8-15 [facility] Comment on above: Order Comment: Speci men Type: BLOOD SPECIMENOrdering Facility: [facility] Address: [address] [place] [address] Performed By: #### 2 4323-8 ####[facility] LABCLIA [id number] [place] [address] [place] AST [Catalytic activity/Vol] 21 U/L Normal 13-35 [facility] Comment on above: Order Comment: Speci men Type: BLOOD SPECIMENOrdering Facility: [facility] Address: [address] [place] [address] Performed By: #### 2 4323-8 ####[facility] LABCLIA [id number] [place] [address] [place] Bilirubin [Mass/Vol] mg/dL Low 0.2-1.3 [facility] Comment on above: Order Comment: Speci men Type: BLOOD SPECIMENOrdering Facility: [facility] Address: [address] [place] [address] Performed By: #### 2 4323-8 ####[facility] LABCLIA [id number] [place] [address] [place] Calcium [Mass/Vol] 9.0 mg/dL Normal 8.5-10.2 [facility] Comment on above: Order Comment: Speci men Type: BLOOD SPECIMENOrdering Facility: [facility] Address: [address] [place] [address] Performed By: #### 2 4323-8 ####[facility] LABCLIA [id number] [place] [address] [place] Chloride [Moles/Vol] 105 mmol/L Normal 98-107 [facility] Comment on above: Order Comment: Speci men Type: BLOOD SPECIMENOrdering Facility: [facility] Address: [address] [place] [address] Performed By: #### 2 4323-8 ####[facility] LABCLIA [id number] [place] [address] [place] CO2 [Moles/Vol] 30 mmol/L Normal 22-30 [facility] Comment on above: Order Comment: Speci men Type: BLOOD SPECIMENOrdering Facility: [facility] Address: [address] [place] [address] Performed By: #### 2 4323-8 ####[facility] LABCLIA [id number] [place] [address] [place] Creatinine [Mass/Vol] 0.79 mg/dL Normal 0.58-0.96 [facility] Comment on above: Order Comment: Speci men Type: BLOOD SPECIMENOrdering Facility: [facility] Address: [address] [place] [address] Performed By: #### 2 4323-8 ####[facility] LABCLIA [id number] [place] [address] [place] Creatinine and Glomerular filtration rate.predicted panel (S/P/Bld) 96 mL/min/1.73m??? Normal >=60 [facility] Comment on above: Order Comment: Luana davenport Type: BLOOD SPECIMENOrdering Facility: [facility] Address: [address] [place] [address] Result Comment: Cristal mated Glomerular Filtration Rate [...] actual GFR. Performed By: #### 2 4323-8 ####[facility] LABCLIA [id number] [place] [address] [place] Glucose [Mass/Vol] 68 mg/dL Low 74-99 [facility] Comment on above: Order Comment: Luana davenport Type: BLOOD SPECIMENOrdering Facility: [facility] Address: [address] [place] [address] Result Comment: The [place] [employer] (ADA) provides guidance for cutoff [...] Standards of Medical Care in Diabetes 2016, [place] [employer]. Diabetes Care. 2016.39(Suppl 1). Performed By: #### 2 4323-8 ####[facility] LABIA [id number] [place] [address] [place] Potassium [Moles/Vol] 4.3 mmol/L Normal 3.7-5.1 [facility] Comment on above: Order Comment: Speci men Type: BLOOD SPECIMENOrdering Facility: [facility] Address: [address] [place] [address] Performed By: #### 2 4323-8 ####[facility] LABCLIA [id number] [place] [address] [place] Protein [Mass/Vol] 5.9 g/dL Low 6.3-8.0 [facility] Comment on above: Order Comment: Speci men Type: BLOOD SPECIMENOrdering Facility: [facility] Address: [address] [place] [address] Performed By: #### 2 4323-8 ####[facility] LABCLIA [id number] [place] [address] [place] Sodium [Moles/Vol] 141 mmol/L Normal 136-144 [facility] Comment on above: Order Comment: Speci men Type: BLOOD SPECIMENOrdering Facility: [facility] [facility] Address: [address] [place] [address] Performed By: #### 2 4323-8 ####[facility] LABCLIA [id number] [place] [address] [place] Urea nitrogen [Mass/Vol] 8 mg/dL Normal 7-21 [facility] Comment on above: Order Comment: Speci men Type: BLOOD SPECIMENOrdering Facility: [facility] Address: [address] [place] [address] Performed By: #### 2 4323-8 ####[facility] LABCLIA [id number] [place] [address] [place] CNOVon 07-11-2024 CNOV Normal [facility] Estradiol SerPl-mCncon 07-10 E2 [Mass/Vol] 380 pg/mL Normal [facility] Comment on above: Order Comment: Speci men Type: BLOOD SPECIMENOrdering Facility: [facility] Address: [address] [place] [address] Result Comment: This test is not suitable for patients receiving treatment with the drug Fulvestrant (Faslodex). The drug causes an interference leading to falsely elevated estradiol results.Menstrual cycle Estradiol reference ranges:Follicular : < 234 pg/mLOvulation : 41 to 398 pg/mLLuteal : < 342 pg/mLPregnancy Estradiol reference ranges vary by gestational period:First trimester : 154 to 3243 pg/mLSecond trimester : 1561 to 75348 pg/mLThird trimester : 8285 to >25714 pg/mLPost-menopausal Estradiol reference range: < 41 pg/mLReference: 1. Estradiol - E2 (Estradiol III) [package insert V 3.0 Turkish]. [facility], [place], [place], November 2015. Performed By: #### 1 5067-2, 2243-4 ####[facility] LABCLIA [id number] [place] [address] [place] FSH SerPl-aCncon 07-10-2024 Follitropin Qn 13.9 m[IU]/mL Normal See comment [facility] Comment on above: Order Comment: Speci men Type: BLOOD SPECIMENOrdering Facility: [facility] Address: [address] [place] [address] Result Comment: Refe rence range: Follicular: 3.5-12.5 mIU/mL Ovulation: 4.7-21.5 mIU/mL Luteal: 1.7-7.7 mIU/mL Postmenopausal: 25.8-134.8 mIU/mL Performed By: #### 1 5067-2, 2243-4 ####[facility] LABCLIA [id number] [place] [id number] [place] Plastic Surgery Visit Report on 07-10-2024 Plastic Surgery Visit Report [facility] Plastic Reconstructive Surgery [address] [facility] [place], [address] [place], [place] [id number] OFFICE VISIT Date of Service: 07/10/24 MR#: [id number] Acct: [id number] Name: JENNYPAT TOLEDO MARSHALL Rep #: [id number] : 1980 Provider: Dr. Constanza esposito MD Age/Sex: 44/F Location[place] [facility] [place] Status: Signed Intake Vital Signs 07/03/24 09:54 [...] PO .COMPLEX #6 02/27/24 07/10/24 Rx (Zithromax Z-Hrenan) tabs gabapentin 300 mg capsule 300 mg [...] of connect (more content not included)... Normal [facility] CNOVon 07-09-2024 CNOV Normal [facility] HIGH RISK HUMAN PAPILLOMA GENEVA (HPV), PCR FOR DETECTION AND GENOTYPINGon 07-09-2024 HPV 16 Ag Ql (Unsp spec) Not detected Normal Not detected [facility] Comment on above: Order Comment: Speci men Type: FLUID SPECIMENOrdering Facility: [facility] Address: [address] [place] [address] Performed By: #### H PVHRT ####[facility] LABIA [id number] [place] [address] [place] HPV 18 Ag Ql (Unsp spec) Not detected Normal Not detected [facility] Comment on above: Order Comment: Speci men Type: FLUID SPECIMENOrdering Facility: [facility] Address: [address] [place] [address] Performed By: #### H PVHRT ####[facility] LABIA [id number] [place] [address] [place] HPV 31+33+35+39+45+51+52+ 56+58+59+66+68 DNA MARY KAY+probe Ql (Cvx) Not detected Normal Not detected [facility] Comment on above: Order Comment: Speci men Type: FLUID SPECIMENOrdering Facility: [facility] Address: [address] [place] [address] Result Comment: High Risk HPV Other Type includes HPV types 31, 33, 35, 39, 45, 51, 52, 56, 58, 59, 66 and 68. Performed By: #### H PVHRT ####[facility] LABCLIA [id number] [place] [address] [place] PAP TESTon 07-09-2024 ADEQUACY Normal [facility] Comment on above: Order Comment: Speci men Type: FLUID SPECIMENOrdering Facility: [facility] Address: [address] [place] [address] Result Comment: Sati sfactory for interpretation.Limited cellularity due to acellular background materialNo endocervical component Performed By: #### L [id number] ####[facility] LABCLIA [id number] [place] [address] [place] CASE REPORT Normal [facility] Comment on above: Order Comment: Speci men Type: FLUID SPECIMENOrdering Facility: [facility] Address: [address] [place] [address] Result Comment: Gyne cologic Cytology Report Case: [id number] Provider: Cecile Patricia APRN.MARKING MACHINE OPERATOR Collected: 07/09/2024 08:18 AMOrdering Location: OB/Gynecology Received: 07/09/2024 12:35 PMFirst Screen: Clapacs, ElishaSpecimen: Pap Test, ThinPrep, Cervix Performed By: #### L [id number] ####[facility] LABCLIA [id number] [place] [address] [place] CLINICAL HISTORY, CYTOLOGY, PIPE THREADER Routine Exam Normal [facility] Comment on above: Order Comment: Speci men Type: FLUID SPECIMENOrdering Facility: [facility] Address: [address] [place] [address] Result Comment: No M enses, Other (Specify)ablation Performed By: #### L [id number] ####[facility] LABCLIA [id number] [place] [id number] [place] FINAL PERFORMING LAB Normal [facility] Comment on above: Order Comment: Speci men Type: FLUID SPECIMENOrdering Facility: [facility] Address: [address] [place], [place] [address] Result Comment: Tech nical component, cell phone repair technician screening performed at [facility], [address] [place] [address] [place] [address] CLIA# [id number] interpretation performed at [facility], [address] [place] [address] CLIA# [id number] Director: Jose Guadalupe Madden M.D. Performed By: #### L [id number] ####[facility] LABCLIA [id number] [place] [id number] [place] INTERPRETATION, CYTOLOGY, PIPE THREADER Normal [facility] Comment on above: Order Comment: Speci men Type: FLUID SPECIMENOrdering Facility: [facility] Address: [address] [place] [address] Result Comment: Nega tive for intraepithelial lesion or malignancy. Performed By: #### L [id number] ####[facility] LABCLIA [id number] [place] [address] [place] PAP DISCLAIMER COMMENT The Pap Smear is a screening test for cervical cancer. False negative results occur with all screening tests, emphasizing the need for rescreening at recommended intervals, and clinical correlation. Normal [facility] Comment on above: Order Comment: Speci men Type: FLUID SPECIMENOrdering Facility: [facility] Address: [address] [place] [address] Performed By: #### L [id number] ####[facility] LABCLIA [id number] [facility] [place] [id number] [place] PAP CUSTOM DECORATING CONSULTANT COMMENT Normal [facility] Comment on above: Order Comment: Speci men Type: FLUID SPECIMENOrdering Facility: [facility] Address: [address] [place] [address] Performed By: #### L [id number] ####[facility] LABCLIA [id number] [place] [address] [id number] [place] CNPNon 07-07-2024 CNPN Normal [facility] Forearm 2 Viewson 07-03-2024 Forearm 2 Views [facility] Imaging Services [address] [place] [address] Forearm 2 Views MR#: [id number] Acct: [id number] Name: PAT MEDINA Rep #: [id number] : 1980 F 44 From: Tim Garcia MD PCP: Dr. Maile Norman MD Status: [facility] CLI Study: Forearm 2 Views Date of Exam: 07/03/24 Exam# [id number] Ordering Dr: Constanza Cordova MD [id number] STUDY: X-RAY - LEFT RADIUS AND ULNA [...] 16:05 EST Reading Location ID and State: [facility] / [place] , Service support , CC: Dr. Maile Norman MD; Dr. Constanza Cordova MD Town Marshal: Signed Normal [facility] Plastic Surgery Visit Report on 07-03-2024 Plastic Surgery Visit Report [facility] Plastic Reconstructive Surgery [address], [address] [place] [id number] OFFICE VISIT Date of Service: 07/03/24 MR#: [id number] Acct: [id number] Name: PAT MEDINA Rep #: [id number] : 1980 Provider: Dr. Constanza esposito MD Age/Sex: 44/F Location: [facility] Status: Signed Intake Vital Signs 06/06/24 13:34 [...] pt here with for result of ultrasound PFSH Medical History Right rotator cuff tear [...] vis,est,level 3 (more content not included)... Normal [facility] Emergency Department Summary on 07-02-2024 Emergency Department Summary [facility] Medical Records Department [address] [place] [address] Emergency Department Summary 07/02/24 MR#: [id number] Acct: [id number] Name: PAT MEDINA Rep #: [id number] : 1980 44 From: John Bass DO [...] Excedrin. Patient denies any recent head injuries. [facility] Medical History Right rotator cuff tear Wears [...] mouth swellin (more content not included)... Normal [facility] Other Unlisted US Procedureo n 06-28-2024 Other Unlisted US Procedure [facility] Imaging Services [address] [place] [address] Other Unlisted US Procedure MR#: [id number] Acct: [id number] Name: PAT MEDINA Rep #: [id number] : 1980 F 44 From: Deena Reardon MD PCP: Dr. Maile Norman MD Status: DEP CLI Study: Other Unlisted US Procedure Date of Exam: 08/21 Exam# [id number] Ordering Dr: Constanza Cordova MD ADDENDUM by Dr. Cristhian Wilhelm MD on 08/16/24 at 1500 This is an addendum to correct report header and technique: Real-Time targeted ultrasound imaging of the soft tissues of the left forearm were obtained. 09/07/24 0757 Date cc: Dr. Maile Norman MD; Dr. Constanza Cordova MD * Signed [id number] EXAM: US ABDOMEN LIMITED CLINICAL INDICATION: lump [...] Maile Norman MD; Dr. Constanza Cordova MD Town Marshal: Signed Normal [facility] MR Shoulder - right WO contr raheel 06-15-2024 IMPRESSION: 1. Postoperative changes of biceps . 2. Rotator cuff tendinosis without evidence of a high-grade tear. 3. Mild to moderate subdeltoid subacromial bursitis. Town Marshal: DARSHAN Transcribe Date/Time: Jun 15 2024 6:15P Dictated by : SHAWNEE BRICE MD This examination was interpreted and the report reviewed and electronically signed by: SHAWNEE BRICE MD on Jun 15 2024 6:24PM [facility] DIVISION OF RADIOLOGY * * *Final Report* * * DATE OF EXAM: Jun 15 2024 1:17PM WR 0240 - MRI SHOULDER WO IVCON RT [...] No additional findings. DIVISION OF RADIOLOGY Provider, [facility] - 06/15/2024 * * *Final Report* * * DATE OF EXAM: Jun 15 2024 1:17PM VERITO 0240 - MRI SHOULDER WO IVCON RT [...] 3. Mild to moderate subdeltoid subacromial bursitis. Town Marshal: PSCB Transcribe Date/Time: Jun 15 2024 6:15P Dictated by : SHAWNEE BRICE MD This examination was interpreted and the report reviewed and electronically signed by: SHAWNEE BRICE MD on Jun 15 2024 6:24PM EST [facility] Radiology Study observation (narrative) [facility] MR Shoulder - right WO contr astOrdered By: Ccf Provider on 06-15-2024 [facility] MRI SHOULDER WO IVCON RTon 1 08-16-2023 MRI SHOULDER WO IVCON RT Normal [facility] Plastic Surgery Visit Report on 06-06-2024 Plastic Surgery Visit Report [facility] Plastic Reconstructive Surgery [address], [address] [place] [address] OFFICE VISIT Date of Service: 06/06/24 MR#: [id number] Acct: [id number] Name: PAT MEDINA Rep #: [id number] : 1980 Provider: Dr. Constanza esposito MD Age/Sex: 44/F Location[place] [facility] [place] Status: Signed Intake Vital Signs 03/18/24 13:22 [...] asthma, emphysem (more content not included)... Normal [facility] 06-05-2024 [facility] Normal [facility]20[facility] XR HAND 3V PA/LAT/OBL RTon 1 07-25-2023 XR HAND 3V PA/LAT/OBL RT Normal [facility] XR Hand - right PA and Later al and Obliqueon 05-25-2024 IMPRESSION: Negative ulnar variance. No acute radiographic abnormalities identified. Town Marshal: PSCB Transcribe Date/Time: May 25 2024 12:08P Dictated by : OTTONIEL OSHEA MD This examination was interpreted and the report reviewed and electronically signed by: OTTONIEL OSHEA MD on May 25 2024 12:10PM [facility] DIVISION OF RADIOLOGY * * *Final Report* [...] soft tissue swelling. DIVISION OF RADIOLOGY Provider, [facility] - 05/25/2024 * * *Final Report* * [...] ulnar variance. No acute radiographic abnormalities identified. Town Marshal: DARSHAN Transcribe Date/Time: May 25 2024 12:08P Dictated by : OTTONIEL OSHEA MD This examination was interpreted and the report reviewed and electronically signed by: OTTONIEL OSHEA MD on May 25 2024 12:10PM EST [facility] Radiology Study observation (narrative) [facility] XR Hand - right PA and Later al and ObliqueOrdered By: Ccf Provider on 05-25-2024 [facility] CNOVon 05-23-2024 CNOV Normal [facility] CNOVon 05-15-2024 CNOV Normal [facility] CNPNon 05-15-2024 CNPN Normal [facility] CNOVon 05-11-2024 CNOV Normal [facility] HSV+VZV DNA MARY KAY+probe Ql (Un sp spec)on 05-11-2024 HSV 1 DNA MARY KAY+probe Ql (Unsp spec) Not detected Normal Not Detected [facility] Comment on above: Order Comment: Speci men Type: SWABOrdering Facility: [facility] Address: [address] [place] [address] Performed By: #### 3 3027-4 ####[facility] LABCLIA [id number] [place] [address] [place] HSV 2 DNA MARY KAY+probe Ql (Unsp spec) Not detected Normal Not Detected [facility] Comment on above: Order Comment: Speci men Type: SWABOrdering Facility: [facility] Address: [address] [place] [address] Performed By: #### 3 3027-4 ####[facility] LABCLIA [id number] [place] [address] [place] VZV DNA MARY KAY+probe Ql (Unsp spec) Not detected Normal Not Detected [facility] Comment on above: Order Comment: Speci men Type: SWABOrdering Facility: [facility] Address: [address] [place] [address] Performed By: #### 3 3027-4 ####[facility] LABCLIA [id number] [place] [address] [place] CNOVon 05-10-2024 CNOV Normal [facility] XR FOREARM 2V AP/LAT LTon XR FOREARM 2V AP/LAT LT Normal [facility] XR Radius and Ulna - left AP and Lateralon 05-10-2024 IMPRESSION: No acute osseous abnormality Town Marshal: DARSHAN Transcribe Date/Time: May 10 2024 12:29P Dictated by : ZACHERY RO MD This examination was interpreted and the report reviewed and electronically signed by: ZACHERY RO MD on May 10 2024 12:30PM [facility] DIVISION OF RADIOLOGY * * *Final Report* [...] spaces are maintained. [facility] * * *Final Report* * [...] maintained. IMPRESSION IMPRESSION: No acute osseous abnormality Town Marshal: DARSHAN Transcribe Date/Time: May 10 2024 12:29P Dictated by : ZACHERY RO MD This examination was interpreted and the report reviewed and electronically signed by: ZACHERY RO MD on May 10 2024 12:30PM EST [facility] Radiology Study observation (narrative) [facility] XR Radius and Ulna - left AP and LateralOrdered By: Ccf Provider on 05-10-[address] [facility] [address] ABDOMEN/PELVIS W/O CONTRA STon 04-29-2024 CT [...] 9:43:43 PM Ordering Provider: JUAN MIGUEL Solo [facility] LABORATORYOrdered By: Carmen Moreira on 04-29-2024 [...] SS UAon 04-29-2024 Color (U) Yellow Normal [facility] Comment on above: Performed By: #### U A #### [address] [address] Glucose (U) [Mass/Vol] Negative Normal Negative [facility] Comment on above: Performed By: #### U A #### [address] [address] Ketones Ql (U) Negative Normal Negative [facility] Comment on above: Performed By: #### U A #### [address] [address] UA Appear Clear Normal Clear [facility] Comment on above: Performed By: #### U A #### [address] [address] UA Blood Negative Normal Negative [facility] Comment on above: Performed By: #### U A #### [place] [address] UA Leuk Est Negative Normal Negative [facility] Comment on above: Performed By: #### U A #### [place] [address] UA Nitrite Negative Normal Negative [facility] Comment on above: Performed By: #### U A #### [address] [address] UA pH 6.5 Normal 5.0 - 8.0 [facility] Comment on above: Performed By: #### U A #### [address] [address] UA Protein Negative Normal Negative [facility] Comment on above: Performed By: #### U A #### [address] [address] UA Spec Grav 1.015 Normal 1.015-1.025 [facility] Comment on above: Performed By: #### U A #### [place] [address] UA Specimen Type Clean Catch Normal [facility] Comment on above: Performed By: #### U A #### [address] [address] UA Urobilinogen 0.2 E.U./dL Normal 0.2-1.0 [facility] Comment on above: Performed By: #### U A #### [facility] [address] [place], [place] [address] Urobilinogen (U) [Mass/Vol] Negative Normal Negative [facility] Comment on above: Performed By: #### U A #### [facility] [address] [place], [place] [address] CNOVon 04-25-2024 CNOV Normal [facility] CNPNon 04-17-2024 CNPN Normal [facility] CNOVon 04-13-2024 CNOV Normal [facility] CNOVon 03-28-2024 CNOV Normal [facility] CNPNon 03-23-2024 CNPN Normal [facility] Brain/Head without Contrasto n 03-18-2024 Brain/Head without Contrast [facility] Imaging Services [address] [place] [address] Brain/Head without Contrast MR#: [id number] Acct: [id number] Name: PAT MEDINA Rep #: [id number] : 1980 F 44 From: Kofi [place] PCP: Dr. Maile Norman MD Status: [facility] Study: Brain/Head without Contrast Date of Exam: 02/26 08/20 Exam# [id number] Ordering Dr: Prasanth Keith DO [id number] EXAM: CT HEAD WITHOUT INTRAVENOUS CONTRAST CLINICAL [...] Maile Norman MD; Dr. Prasanth Keith DO Town Marshal: Signed Normal [facility] Elbow min 3 Viewson 03-18-20 Elbow min 3 Views [facility] Imaging Services [address] [place] [address] Elbow min 3 Views MR#: [id number] Acct: [id number] Name: PAT MEDINA Rep #: [id number] : 1980 F 44 From: Kofi [place] PCP: Dr. Maile Norman MD Status: REG ER Study: Elbow min 3 Views Date of Exam: 03/18/24 Exam# [id number] Ordering Dr: Prasanth Keith DO [id number] EXAM: XR LEFT ELBOW COMPLETE, 3 OR [...] Maile Norman MD; Dr. Prasanth Keith DO Town Marshal: Signed Normal [facility] Emergency Department Summary on 03-18-2024 Emergency Department Summary [facility] Medical Records Department [address] [place] [address] Emergency Department Summary 03/18/24 MR#: [id number] Acct: [id number] Name: PAT MEDINA Rep #: [id number] : 1980 44 From: Prasanth Keith DO [...] however denies any suicidal or homicidal ideations. [facility] Medical History Right rotator cuff tear Wears [...] the bi (more content not included)... Normal [facility] Forearm 2 Viewson 03-18-2024 Forearm 2 Views [facility] Imaging Services [address] [place] [address] Forearm 2 Views MR#: [id number] Acct: [id number] Name: PAT MEDINA Rep #: [id number] : 1980 F 44 From: Kofi [place] PCP: Dr. Maile Norman MD Status: REG ER Study: Forearm 2 Views Date of Exam: 03/18/24 Exam# [id number] Ordering Dr: Prasanth Keith DO [id number] INDICATION: lac EXAMINATION/TECHNIQUE : X-RAY - LEFT [...] 15:40 EDT Reading Location ID and State: [facility] / [place] , Service support , CC: Dr. Maile Norman MD; Dr. Prasanth Keith DO Town Marshal: Signed Normal [facility] Sinus/Facial Boneon 03-18-20 Sinus/Facial Bone [facility] Imaging Services [address] [place], [place] [address] Sinus/Facial Bone MR#: [id number] Acct: [id number] Name: PAT MEDINA Rep #: [id number] : 1980 F 44 From: Kofi Spring PCP: Dr. Maile Norman MD Status: REG ER Study: Sinus/Facial Bone Date of Exam: 03/18/24 Exam# [id number] Ordering Dr: Prasanth Keith DO [id number] EXAM: CT MAXILLOFACIAL WITHOUT INTRAVENOUS CONTRAST CLINICAL [...] Signed: Kofi Quispe MD at 15:37 EDT , CC: Dr. Maile Norman MD; Dr. Prasanth Keith DO Town Marshal: Signed Normal [facility] Spine Cervical without Contr ason 03-18-2024 Spine Cervical without Contras [facility] Imaging Services [address] [place] [address] Spine Cervical without Contras MR#: [id number] Acct: [id number] Name: PAT MEDINA Rep #: [id number] : 1980 F 44 From: Kofi Spring PCP: Dr. Maile Norman MD Status: REG ER Study: Spine Cervical without Contras Date of Exam: 0 03/18/24 Exam# [id number] Ordering Dr: Prasanth Keith DO [id number] STUDY: CT Spine Cervical W/O Contrast Injection [...] 15:42 EDT Reading Location ID and State: [facility] [place] / [place] , Service support , CC: Dr. Maile Norman MD; Dr. Prasanth Keith DO Town Marshal: Signed Normal [facility] CNPNon 03-07-2024 CNPN Normal [facility] XR CHEST 2V FRONTAL/LATon XR CHEST 2V FRONTAL/LAT Normal [facility] XR Chest PA and Lateralon IMPRESSION: No acute radiographic abnormality. Town Marshal: DARSHAN Transcribe Date/Time: Mar 07 2024 4:07P Dictated by : ALEX MUNIZ MD This examination was interpreted and the report reviewed and electronically signed by: ALEX MUNIZ MD on Mar 07 2024 4:07PM [facility] DIVISION OF RADIOLOGY * * *Final Report* [...] Mild degenerative changes. DIVISION OF RADIOLOGY Provider, Grace Garcia - 03/07/2024 * * *Final Report* [...] changes. IMPRESSION IMPRESSION: No acute radiographic abnormality. Town Marshal: DARSHAN Transcribe Date/Time: Mar 07 2024 4:07P Dictated by : ALEX MUNIZ MD This examination was interpreted and the report reviewed and electronically signed by: ALEX MUNIZ MD on Mar 07 2024 4:07PM EST [facility] Radiology Study observation (narrative) [facility] XR Chest PA and LateralOrder ed By: Ccf Provider on 03-07-2024 [facility] CBC W Auto Differential pane l (Bld)on 02-28-2024 Basophils (Bld) [#/Vol] 0.11 10*3/uL High <0.11 [facility] Comment on above: Order Comment: Speci men Type: BLOOD SPECIMENOrdering Facility: [facility] Address: [address] [place] [address] Performed By: #### 5 7021-8 ####[facility] LABCLIA [id number] [place] [address] [place] Basophils/100 WBC (Bld) 1.2 % Normal [facility] Comment on above: Order Comment: Speci men Type: BLOOD SPECIMENOrdering Facility: [facility] Address: [address] [place] [address] Performed By: #### 5 7021-8 ####[facility] LABCLIA [id number] [place] [address] [place] Differential cell count method Nom (Bld) Auto Normal [facility] Comment on above: Order Comment: Speci men Type: BLOOD SPECIMENOrdering Facility: [facility] Address: [address] [place] [address] Performed By: #### 5 7021-8 ####[facility] LABCLIA [id number] [place] [address] [place] Eosinophils (Bld) [#/Vol] 0.24 10*3/uL Normal <0.46 [facility] Comment on above: Order Comment: Speci men Type: BLOOD SPECIMENOrdering Facility: [facility] Address: [address] [place] [address] Performed By: #### 5 7021-8 ####[facility] LABCLIA [id number] [place] [address] [place] Eosinophils/100 WBC (Bld) 2.7 % Normal [facility] Comment on above: Order Comment: Speci men Type: BLOOD SPECIMENOrdering Facility: [facility] Address: [address] [place] [address] Performed By: #### 5 7021-8 ####[facility] LABCLIA [id number] [place] [address] [place] Erythrocyte distribution width (RBC) [Ratio] 12.8 % Normal 11.5-15.0 [facility] Comment on above: Order Comment: Speci men Type: BLOOD SPECIMENOrdering Facility: [facility] Address: [address] [place] [address] Performed By: #### 5 7021-8 ####[facility] LABCLIA [id number] [place] [address] [place] Hematocrit (Bld) [Volume fraction] 42.9 % Normal 36.0-46.0 [facility] Comment on above: Order Comment: Speci men Type: BLOOD SPECIMENOrdering Facility: [facility] Address: [address] [place] [address] Performed By: #### 5 7021-8 ####[facility] LABCLIA [id number] [place] [address] [place] Hemoglobin (Bld) [Mass/Vol] 14.2 g/dL Normal 11.5-15.5 [facility] Comment on above: Order Comment: Speci men Type: BLOOD SPECIMENOrdering Facility: [facility] Address: [address] [place] [address] Performed By: #### 5 7021-8 ####[facility] LABCLIA [id number] [place] [address] [place] Immature granulocytes (Bld) [#/Vol] 10*3/uL Normal <0.10 [facility] Comment on above: Order Comment: Speci men Type: BLOOD SPECIMENOrdering Facility: [facility] Address: [address] [place] [address] Performed By: #### 5 7021-8 ####[facility] LABCLIA [id number] [place] [address] [place] Immature granulocytes/100 WBC (Bld) 0.2 % Normal [facility] Comment on above: Order Comment: Speci men Type: BLOOD SPECIMENOrdering Facility: [facility] Address: [address] [place] [address] Performed By: #### 5 7021-8 ####[facility] LABCLIA [id number] [place] [address] [place] Lymphocytes (Bld) [#/Vol] 2.52 10*3/uL Normal 1.00-4.00 [facility] Comment on above: Order Comment: Speci men Type: BLOOD SPECIMENOrdering Facility: [facility] Address: [address] [place] [address] Performed By: #### 5 7021-8 ####[facility] LABCLIA [id number] [place] [address] [place] Lymphocytes/100 WBC (Bld) 28.5 % Normal [facility] Comment on above: Order Comment: Speci men Type: BLOOD SPECIMENOrdering Facility: [facility] Address: [address] [place] [address] Performed By: #### 5 7021-8 ####[facility] LABCLIA [id number] [place] [address] [place] MCH (RBC) [Entitic mass] 32.4 pg Normal 26.0-34.0 [facility] Comment on above: Order Comment: Speci men Type: BLOOD SPECIMENOrdering Facility: [facility] Address: [address] [place] [address] Performed By: #### 5 7021-8 ####[facility] LABCLIA [id number] [place] [address] [place] MCHC (RBC) [Mass/Vol] 33.1 g/dL Normal 30.5-36.0 [facility] Comment on above: Order Comment: Speci men Type: BLOOD SPECIMENOrdering Facility: [facility] Address: [address] [place] [address] Performed By: #### 5 7021-8 ####[facility] LABCLIA [id number] [place] [address] [place] MCV (RBC) [Entitic vol] 97.9 fL Normal 80.0-100.0 [facility] Comment on above: Order Comment: Speci men Type: BLOOD SPECIMENOrdering Facility: [facility] Address: [address] [place] [address] Performed By: #### 5 7021-8 ####[facility] LABCLIA [id number] [place] [address] [place] Monocytes (Bld) [#/Vol] 0.57 10*3/uL Normal <0.87 [facility] Comment on above: Order Comment: Speci men Type: BLOOD SPECIMENOrdering Facility: [facility] Address: [address] [place] [address] Performed By: #### 5 7021-8 ####[facility] LABCLIA [id number] [place] [address] [place] Monocytes/100 WBC (Bld) 6.4 % Normal [facility] Comment on above: Order Comment: Speci men Type: BLOOD SPECIMENOrdering Facility: [facility] Address: [address] [place] [address] Performed By: #### 5 7021-8 ####[facility] LABCLIA [id number] [place] [address] [place] Neutrophils (Bld) [#/Vol] 5.39 10*3/uL Normal 1.45-7.50 [facility] Comment on above: Order Comment: Speci men Type: BLOOD SPECIMENOrdering Facility: [facility] Address: [address] [place] [address] Performed By: #### 5 7021-8 ####[facility] LABCLIA [id number] [place] [address] [place] Neutrophils/100 WBC (Bld) 61.0 % Normal [facility] Comment on above: Order Comment: Speci men Type: BLOOD SPECIMENOrdering Facility: [facility] Address: [address] [place] [address] Performed By: #### 5 7021-8 ####[facility] LABCLIA [id number] [place] [address] [place] Nucleated RBC (Bld) [#/Vol] 10*3/uL Normal <0.01 [facility] Comment on above: Order Comment: Speci men Type: BLOOD SPECIMENOrdering Facility: [facility] Address: [address] [place] [address] Performed By: #### 5 7021-8 ####[facility] LABIA [id number] [place] [address] [place] Nucleated RBC/100 WBC (Bld) [Ratio] 0.0 /100 WBC Normal [facility] Comment on above: Order Comment: Speci men Type: BLOOD SPECIMENOrdering Facility: [facility] Address: [address] [place] [address] Performed By: #### 5 7021-8 ####[facility] LABIA [id number] [place] [address] [place] Platelet mean volume (Bld) [Entitic vol] 10.0 fL Normal 9.0-12.7 [facility] Comment on above: Order Comment: Speci men Type: BLOOD SPECIMENOrdering Facility: [facility] Address: [address] [place] [address] Performed By: #### 5 7021-8 ####[facility] LABIA [id number] [place] [address] [place] Platelets (Bld) [#/Vol] 347 10*3/uL Normal 150-400 [facility] Comment on above: Order Comment: Speci men Type: BLOOD SPECIMENOrdering Facility: [facility] Address: [address] [place] [address] Performed By: #### 5 7021-8 ####[facility] LABIA [id number] [place] [address] [place] RBC (Bld) [#/Vol] 4.38 10*6/uL Normal 3.90-5.20 [facility] Comment on above: Order Comment: Speci men Type: BLOOD SPECIMENOrdering Facility: [facility] Address: [address] [place] [address] Performed By: #### 5 7021-8 ####[facility] LABCLIA [id number] [address] [address] [place] WBC (Bld) [#/Vol] 8.85 10*3/uL Normal 3.70-11.00 [facility] Comment on above: Order Comment: Speci men Type: BLOOD SPECIMENOrdering Facility: [facility] Address: [address] [place] [address] Performed By: #### 5 7021-8 ####[facility] LABIA [id number] [place] [address] [place] CNOVon 02-28-2024 CNOV Normal [facility] CNPNon 02-28-2024 CNPN Normal [facility] Comprehensive metabolic 2000 panelon 02-28-2024 Albumin [Mass/Vol] 3.9 g/dL Normal 3.9-4.9 [facility] Comment on above: Order Comment: Speci men Type: BLOOD SPECIMENOrdering Facility: [facility] Address: [address] [place] [address] Performed By: #### 2 4323-8 ####[facility] LABIA [id number] [place] [address] [place] ALP [Catalytic activity/Vol] 61 U/L Normal 34-123 [facility] Comment on above: Order Comment: Speci men Type: BLOOD SPECIMENOrdering Facility: [facility] Address: [address] [place] [address] Performed By: #### 2 4323-8 ####[facility] LABIA [id number] [place] [address] [place] ALT [Catalytic activity/Vol] 13 U/L Normal 7-38 [facility] Comment on above: Order Comment: Speci men Type: BLOOD SPECIMENOrdering Facility: [facility] Address: [address] [place] [address] Performed By: #### 2 4323-8 ####[facility] LABCLIA [id number] [place] [address] [place] Anion gap [Moles/Vol] 11 mmol/L Normal 8-15 [facility] Comment on above: Order Comment: Speci men Type: BLOOD SPECIMENOrdering Facility: [facility] Address: [address] [place] [address] Performed By: #### 2 4323-8 ####[facility] LABCLIA [id number] [place] [address] [place] AST [Catalytic activity/Vol] 15 U/L Normal 13-35 [facility] Comment on above: Order Comment: Speci men Type: BLOOD SPECIMENOrdering Facility: [facility] Address: [address] [place] [address] Performed By: #### 2 4323-8 ####[facility] LABCLIA [id number] [place] [address] [place] Bilirubin [Mass/Vol] 0.2 mg/dL Normal 0.2-1.3 [facility] Comment on above: Order Comment: Speci men Type: BLOOD SPECIMENOrdering Facility: [facility] Address: [address] [place] [address] Performed By: #### 2 4323-8 ####[facility] LABCLIA [id number] [place] [address] [place] Calcium [Mass/Vol] 9.2 mg/dL Normal 8.5-10.2 [facility] Comment on above: Order Comment: Speci men Type: BLOOD SPECIMENOrdering Facility: [facility] Address: [address] [place] [address] Performed By: #### 2 4323-8 ####[facility] LABCLIA [id number] [place] [id number] [place] Chloride [Moles/Vol] 105 mmol/L Normal 98-107 [facility] Comment on above: Order Comment: Speci men Type: BLOOD SPECIMENOrdering Facility: [facility] Address: [address] [place] [address] Performed By: #### 2 4323-8 ####[facility] LABCLIA [id number] [place] [address] [place] CO2 [Moles/Vol] 26 mmol/L Normal 22-30 [facility] Comment on above: Order Comment: Speci men Type: BLOOD SPECIMENOrdering Facility: [facility] Address: [address] [place] [address] Performed By: #### 2 4323-8 ####[facility] LABIA [id number] [address] [place] Creatinine [Mass/Vol] 0.86 mg/dL Normal 0.58-0.96 [facility] Comment on above: Order Comment: Speci men Type: BLOOD SPECIMENOrdering Facility: [facility] Address: [address] [place] [address] Performed By: #### 2 4323-8 ####[facility] LABIA [id number] [address] OF [facility] Creatinine and Glomerular filtration rate.predicted panel (S/P/Bld) 87 mL/min/1.73m??? Normal >=60 [facility] Comment on above: Order Comment: Speci men Type: BLOOD SPECIMENOrdering Facility: [facility] Address: [address] [place] [address] Result Comment: Cristal mated Glomerular Filtration Rate [...] actual GFR. Performed By: #### 2 4323-8 ####[facility] LABCLIA [id number] [place] [address] [place] Glucose [Mass/Vol] 100 mg/dL High 74-99 [facility] Comment on above: Order Comment: Speci men Type: BLOOD SPECIMENOrdering Facility: [facility] Address: [address] [place] [address] Result Comment: The [place] Diabetes Association (ADA) provides guidance for cutoff [...] Standards of Medical Care in Diabetes 2016, [place] [employer]. Diabetes Care. 2016.39(Suppl 1). Performed By: #### 2 4323-8 ####[facility] LABCLIA [id number] [place] [address] [place] Potassium [Moles/Vol] 3.8 mmol/L Normal 3.7-5.1 [facility] Comment on above: Order Comment: Speci men Type: BLOOD SPECIMENOrdering Facility: [facility] Address: [address] [place] [address] Performed By: #### 2 4323-8 ####[facility] LABCLIA [id number] [place] [address] [place] Protein [Mass/Vol] 6.3 g/dL Normal 6.3-8.0 [facility] Comment on above: Order Comment: Speci men Type: BLOOD SPECIMENOrdering Facility: [facility] Address: [address] [place], [place] [address] Performed By: #### 2 4323-8 ####[facility] LABCLIA [id number] [place] [address] [place] Sodium [Moles/Vol] 142 mmol/L Normal 136-144 [facility] Comment on above: Order Comment: Speci men Type: BLOOD SPECIMENOrdering Facility: [facility] Address: [address] [place] [address] Performed By: #### 2 4323-8 ####[facility] LABIA [id number] [place] [address] [place] Urea nitrogen [Mass/Vol] 6 mg/dL Low 7-21 [facility] Comment on above: Order Comment: Speci men Type: BLOOD SPECIMENOrdering Facility: [facility] Address: [address] [place] [address] Performed By: #### 2 4323-8 ####[facility] [id number] [place] [address] [place] HCV Ab Ser Qlon 02-28-2024 HCV Ab Ql (S) Positive Abnormal Negative [facility] Comment on above: Order Comment: Speci men Type: BLOOD SPECIMENOrdering Facility: [facility] Address: [address] [place] [address] Performed By: #### 1 1011-4, 94961-8 ####[facility] LABIA [id number] [place] [address] [place] HCV RNA SerPl MARY KAY+probe-aCnc on 02-28-2024 HCV RNA MARY KAY+probe Qn Not detected Normal HCV RNA not detected by PCR. [facility] Comment on above: Order Comment: Speci men Type: BLOOD SPECIMENOrdering Facility: [facility] Address: [address] [place] [address] Performed By: #### 1 1011-4, 35981-8 ####[facility] LABIA [id number] [place] [address] [place] HIV 1+2 Ab IA Qlon HIV 1 and 2 Ab IA.rapid Nom (S/P/Bld) Normal [facility] Comment on above: Order Comment: Speci men Type: BLOOD SPECIMENOrdering Facility: [facility] Address: [address] [place] [address] Result Comment: Test not indicated. Performed By: #### 3 1201-7 ####[facility] LABCLIA [id number] [place] [address] [place] HIV 1+2 Ab+HIV1 p24 Ag IA Ql Non-Reactive Normal Nonreactive [facility] Comment on above: Order Comment: Speci men Type: BLOOD SPECIMENOrdering Facility: [facility] Address: [address] [place] [address] Performed By: #### 3 1201-7 ####[facility] LABCLIA [id number] [place] [address] [place] HIV immunoassay testing algorithm interpretation (S/P/Bld) [Interp] Normal [facility] Comment on above: Order Comment: Speci men Type: BLOOD SPECIMENOrdering Facility: [facility] Address: [address] [place] [address] Result Comment: No e vidence of HIV-1 or HIV-2 infection. Should recent infection be suspected, repeat testing may be considered 2-3 weeks after this draw.[place] Rev. Code 3701.243(E): This information has been [...] or diagnoses. Performed By: #### 3 1201-7 ####[facility] LABCLIA [id number] [place] [address] [place] Abdomen/Pelvis W IV Cont ONL Yon 02-27-2024 Abdomen/Pelvis W IV Cont ONLY [facility] Imaging Services [address] [place], [place] [id number] Abdomen/Pelvis W IV Cont ONLY MR#: [id number] Acct: [id number] Name: PAT MEDINA Rep #: [id number] : 1980 F 44 From: Katrin Nettles MD PCP: Dr. Maile Norman MD Status: REG ER Study: Abdomen/Pelvis W IV Cont ONLY Date of Exam: Exam# [id number] Ordering Dr: Cesar Marroquin DO [id number] STUDY: CT ABDOMEN AND PELVIS WITH CONTRAST [...] 3:58 EDT Reading Location ID and State: [facility] / [place] , Service support , CC: Dr. Maile Norman MD; Cesar Marroquin DO Town Marshal: Signed Normal [facility] Basic Metabolic Profile (BMP )on 02-27-2024 BUN/CRE 9.2 RATIO Low 10-20 [facility] Comment on above: Performed By: #### L 100.0100, L500.2500 #### [facility] [address] [place], [address] CA,Total 8.9 mg/dL Normal 8.5-10.1 [facility] Comment on above: Performed By: #### L 100.0100, L500.2500 #### [facility] [address] [place], [address] Chloride [Moles/Vol] 105 mmol/L Normal 98-107 [facility] Comment on above: Performed By: #### L 100.0100, L500.2500 #### [facility] [address] [place], [address] CO2 [Moles/Vol] 28.0 mmol/L Normal 21.0-32.0 [facility] Comment on above: Performed By: #### L 100.0100, L500.2500 #### [facility] [address] [place], [address] Creatinine [Mass/Vol] 0.76 mg/dL Normal 0.55-1.02 [facility] Comment on above: Result Comment: The validity of the calculated GFR GFRAA in patients over 70 years has not been determined. Clinical correlation is essential. Performed By: #### L 100.0100, L500.2500 #### [facility] [address] [place], [address] ECRCL 86.77 ml/min Normal [facility] Comment on above: Performed By: #### L 100.0100, L500.2500 #### [facility] [address] [place], [address] EST GFR - AA 107 mL/min Normal >60 [facility] Comment on above: Result Comment: Afri can Haitian GFR Calc Performed By: #### L 100.0100, L500.2500 #### [facility] [address] [place], [address] GAP 6 Normal 5-15 [facility] Comment on above: Performed By: #### L 100.0100, L500.2500 #### [facility] [address] [place], [address] GFR/1.73 sq M.predicted among non-blacks MDRD (S/P/Bld) [Vol rate/Area] 88 mL/min/{1.73_m2} Normal >60 [facility] Comment on above: Result Comment: Non- GFR Calc Performed By: #### L 100.0100, L500.2500 #### [facility] [address] [place], [address] Glucose [Mass/Vol] 96 mg/dL Normal 74-106 [facility] Comment on above: Performed By: #### L 100.0100, L500.2500 #### [facility] [address] [place], [address] Potassium [Moles/Vol] 3.2 mmol/L Low 3.5-5.1 [facility] Comment on above: Performed By: #### L 100.0100, L500.2500 #### [facility] [address] [place], [address] Sodium [Moles/Vol] 139 mmol/L Normal 136-145 [facility] Comment on above: Performed By: #### L 100.0100, L500.2500 #### [facility] [address] [place], [address] Urea nitrogen [Mass/Vol] 7 mg/dL Normal 7-18 [facility] Comment on above: Performed By: #### L 100.0100, L500.2500 #### [facility] [address] [place], [address] CBC W/Diff, Automatedon 09-0 2-2023 Absolute Lymph 4.87 X10 3/uL High 0.83-4.51 [facility] Comment on above: Performed By: #### L 100.0100, L500.2500 #### [facility] [address] [place], [address] Absolute Neut 7.7 X10 3/uL Normal 2.0-7.7 [facility] Comment on above: Performed By: #### L 100.0100, L500.2500 #### [facility] [address] [place], [address] Nucleated RBC (Bld) [#/Vol] 0 10*3/uL Normal 0-5 [facility] Comment on above: Performed By: #### L 100.0100, L500.2500 #### [facility] [address] [place], [address] Basophils/100 WBC (Bld) 0.9 % Normal 0-1 [facility] Comment on above: Performed By: #### L 100.0100, L500.2500 #### [facility] [address] [place], [address] Eosinophils/100 WBC (Bld) 1.4 % Normal 0-5 [facility] Comment on above: Performed By: #### L 100.0100, L500.2500 #### [facility] [address] [place], [address] Erythrocyte distribution width (RBC) [Ratio] 12.7 % Normal 11.6-14.6 [facility] Comment on above: Performed By: #### L 100.0100, L500.2500 #### [facility] [address] [place], [address] Hematocrit (Bld) [Volume fraction] 39.2 % Normal 37-47 [facility] Comment on above: Performed By: #### L 100.0100, L500.2500 #### [facility] [address] [place], [address] Hemoglobin (Bld) [Mass/Vol] 13.5 g/dL Normal 12.0-15.0 [facility] Comment on above: Performed By: #### L 100.0100, L500.2500 #### [facility] [address] [place], [address] IG% 0.300 Normal 0.0-0.9 [facility] Comment on above: Result Comment: IG% - Immature Granulocytes (promyelocytes, myelocytes and metamyelocytes) > 1% indicates that a LEFT SHIFT is Present. Performed By: #### L 100.0100, L500.2500 #### [facility] [address] [place], [address] Lymphocytes/100 WBC (Bld) 34.8 % Normal 19-41 [facility] Comment on above: Performed By: #### L 100.0100, L500.2500 #### [facility] [address] [place], [address] MCH (RBC) [Entitic mass] 32.8 pg High 27.0-32.0 [facility] Comment on above: Performed By: #### L 100.0100, L500.2500 #### [facility] [address] [place], [address] MCHC (RBC) [Mass/Vol] 34.4 g/dL Normal 32-36 [facility] Comment on above: Performed By: #### L 100.0100, L500.2500 #### [facility] [address] [place], [address] MCV (RBC) [Entitic vol] 95.4 fL Normal 81-99 [facility] Comment on above: Performed By: #### L 100.0100, L500.2500 #### [facility] [address] [place], [address] Monocytes/100 WBC (Bld) 7.8 % Normal 0-10 [facility] Comment on above: Performed By: #### L 100.0100, L500.2500 #### [facility] [address] [place], [address] Neutrophils/100 WBC (Bld) 54.8 % Normal 47-70 [facility] Comment on above: Performed By: #### L 100.0100, L500.2500 #### [facility] [address] [place], [address] Platelet mean volume (Bld) [Entitic vol] 10.4 fL Normal 6.2-12.0 [facility] Comment on above: Performed By: #### L 100.0100, L500.2500 #### [facility] [address] [place], [address] Platelets (Bld) [#/Vol] 317 10*3/uL Normal 150-450 [facility] Comment on above: Performed By: #### L 100.0100, L500.2500 #### [facility] [address] [place], [address] RBC (Bld) [#/Vol] 4.11 10*6/uL Low 4.2-5.4 [facility] Comment on above: Performed By: #### L 100.0100, L500.2500 #### [facility] [address] [place], [address] RDW SD 43.9 fl Normal 35.1-43.9 [facility] Comment on above: Performed By: #### L 100.0100, L500.2500 #### [facility] [address] [place], [address] WBC (Bld) [#/Vol] 14.0 10*3/uL High 4.4-11.0 [facility] Comment on above: Performed By: #### L 100.0100, L500.2500 #### [facility] [address] [place], [address] Emergency Department Summary on 02-27-2024 Emergency Department Summary [facility] Medical Records Department [address] [place] [address] Emergency Department Summary 02/27/24 MR#: [id number] Acct: [id number] Name: PAT MEDINA Rep #: [id number] : 1980 44 From: Iain Reina DO [...] 100 Oxygen Delivery Method Room Air MDM [facility] MDM Narrative Medical decision making narrative: HISTORY [...] or guar (more content not included)... Normal [facility] Emergency Department Summary [facility] Medical Records Department [address] [place] [address] Emergency Department Summary 02/27/24 MR#: [id number] Acct: [id number] Name: PAT MEDINA Rep #: [id number] : 1980 44 From: Cesar Marroquin DO PCP: Dr. Maile Norman MD Status:DEP [...] and therefore she comes in for evaluation [facility] Medical History Right rotator cuff tear Wears [...] Resp n (more content not included)... Normal [facility] ,Urineon 02-27-2024 Beta HCG ( test) Ql (U) Negative Normal [facility] Comment on above: Order Comment: CANDIDO CRESPOOR TO SPECIFY Result Comment: Very dilute urine specimens, as indicated by a low specific gravity, may not contain insurance account representative levels of hCG. If is still suspected, a first morning urine specimen should be collected 48 hours later and tested. Performed By: #### L 503.5510 #### [facility] [address] [place], [address] Urinalysis, Completeon 02-26 BACTERIA 0 SEEN Normal None Seen [facility] Comment on above: Order Comment: CANDIDO CTOR TO SPECIFY Performed By: #### L 503.5510 #### [facility] [address] [place], [address] EPI,SQUAMOUS 0 SEEN Normal 5-10 [facility] Comment on above: Order Comment: CANDIDO CTOR TO SPECIFY Performed By: #### L 503.5510 #### [facility] [address] [place], [address] Mucus Ql (Urine sed) 0 SEEN Normal [facility] Comment on above: Order Comment: CANDIDO CTOR TO SPECIFY Performed By: #### L 503.5510 #### [facility] [address] [place], [address] RBC 0 SEEN Normal 0-5 [facility] Comment on above: Order Comment: CANDIDO CTOR TO SPECIFY Performed By: #### L 503.5510 #### [facility] [address] [place], [address] WBC 0 SEEN Normal 0-5 [facility] Comment on above: Order Comment: CANDIDO CTOR TO SPECIFY Performed By: #### L 503.5510 #### [facility] [address] [place], [address] CNOVon 02-16-2024 CNOV Normal [facility] CNPNon 02-13-2024 CNPN Normal [facility] CNOVon 02-07-2024 CNOV Office Visit (AGHWW1 ) PAT MEDINA ([id number]) 1980 F Date Time Provider Department 02/07/24 [...] M25.511 MRI SHOULDER WO IVCON RIGHT Pat Medina returns today with significant pain and worsening [...] AND Elbow Surgeon Department of Orthopaedic Surgery [place] Merline Corcoran LPN 02/17/2024 10:26 AM Signed Injection prepared per Dr. Valencia's order and handed directly to him. Injection site: right shoulder Merline Corcoran LPN Referring Provider: SELF [200] Allergies As [...] chronicity [M25.511] Order(s):MRI SHOULDER WO IVCON RIGHT [[id number]] Order #: [id number] FUTURE Large Joint Arthro/Inj: R shoulder joint [[id number]] Order #: [id number] [] bupivacaine (PF) 0.25 % (2.5 mg/mL) [...] (more content not included)... Normal [facility] Large Joint Arthro/Inj: R sh [...] the patient voiced understanding of these instructions. [facility] CNOVon 01-25-2024 CNOV Normal [facility] CNPNon 01-23-2024 CNPN Normal [facility] CNPNon 01-16-2024 CNPN Normal [facility] CNOVon 01-11-2024 CNOV Normal [facility] CNPTOUTREACHon 01-11-2024 CNPTOUTREACH Normal [facility] CNPNon 01-09-2024 CNPN Normal [facility] Abdomen/Pelvis W IV Cont ONL Yon 01-06-2024 Abdomen/Pelvis W IV Cont ONLY [facility] Imaging Services [address] [place], [place] [address] Abdomen/Pelvis W IV Cont ONLY MR#: [id number] Acct: [id number] Name: PAT MEDINA Rep #: [id number] : 1980 F 43 From: Kofi Ventura MD PCP: Dr. Maile Norman MD Status: REG ER Study: Abdomen/Pelvis W IV Cont ONLY Date of Exam: Exam# [id number] Ordering Dr: Arturo Craig DO [id number] EXAM: CT ABDOMEN AND PELVIS WITH INTRAVENOUS [...] at 23:56 EDT , CC: Dr. Arturo Craig, DO; Dr. Maile Norman MD Town Marshal: Signed Normal [facility] CBC W/Diff, Automatedon 12-25 Absolute Lymph 3.85 X10 3/uL Normal 0.83-4.51 [facility] Comment on above: Performed By: #### L 700.6800, L100.0100, L501.2450, L500.4050 ####[facility] [address] [place], [address] Absolute Neut 8.8 X10 3/uL High 2.0-7.7 [facility] Comment on above: Performed By: #### L 700.6800, L100.0100, L501.2450, L500.4050 ####[facility] [address] [place], [address] Basophils/100 WBC (Bld) 0.5 % Normal 0-1 [facility] Comment on above: Performed By: #### L 700.6800, L100.0100, L501.2450, L500.4050 ####[facility] [address] [place], [address] Eosinophils/100 WBC (Bld) 1.2 % Normal 0-5 [facility] Comment on above: Performed By: #### L 700.6800, L100.0100, L501.2450, L500.4050 ####[facility] [address] [place], [address] Erythrocyte distribution width (RBC) [Ratio] 12.3 % Normal 11.6-14.6 [facility] Comment on above: Performed By: #### L 700.6800, L100.0100, L501.2450, L500.4050 ####[facility] [address] [place], [address] Hematocrit (Bld) [Volume fraction] 41.8 % Normal 37-47 [facility] Comment on above: Performed By: #### L 700.6800, L100.0100, L501.2450, L500.4050 ####[facility] [address] [place], [address] Hemoglobin (Bld) [Mass/Vol] 14.3 g/dL Normal 12.0-15.0 [facility] Comment on above: Performed By: #### L 700.6800, L100.0100, L501.2450, L500.4050 ####[facility] [address] [place], [address] IG% 0.300 Normal 0.0-0.9 [facility] Comment on above: Result Comment: IG% - Immature Granulocytes (promyelocytes, myelocytes and metamyelocytes) > 1% indicates that a LEFT SHIFT is Present. Performed By: #### L 700.6800, L100.0100, L501.2450, L500.4050 ####[facility] [address] [place], [address] Lymphocytes/100 WBC (Bld) 28.0 % Normal 19-41 [facility] Comment on above: Performed By: #### L 700.6800, L100.0100, L501.2450, L500.4050 ####[facility] [address] [place], [address] MCH (RBC) [Entitic mass] 31.7 pg Normal 27.0-32.0 [facility] Comment on above: Performed By: #### L 700.6800, L100.0100, L501.2450, L500.4050 ####[facility] [address] [place], [address] MCHC (RBC) [Mass/Vol] 34.2 g/dL Normal 32-36 [facility] Comment on above: Performed By: #### L 700.6800, L100.0100, L501.2450, L500.4050 ####[facility] [address] [place], [address] MCV (RBC) [Entitic vol] 92.7 fL Normal 81-99 [facility] Comment on above: Performed By: #### L 700.6800, L100.0100, L501.2450, L500.4050 ####[facility] [address] [place], [address] Monocytes/100 WBC (Bld) 6.0 % Normal 0-10 [facility] Comment on above: Performed By: #### L 700.6800, L100.0100, L501.2450, L500.4050 ####[facility] [address] [place], [address] Neutrophils/100 WBC (Bld) 64.0 % Normal 47-70 [facility] Comment on above: Performed By: #### L 700.6800, L100.0100, L501.2450, L500.4050 ####[facility] [address] [place], [address] Nucleated RBC (Bld) [#/Vol] 0 10*3/uL Normal 0-5 [facility] Comment on above: Performed By: #### L 700.6800, L100.0100, L501.2450, L500.4050 ####[facility] [address] [place], [address] Platelet mean volume (Bld) [Entitic vol] 9.5 fL Normal 6.2-12.0 [facility] Comment on above: Performed By: #### L 700.6800, L100.0100, L501.2450, L500.4050 ####[facility] [address] [place], [address] Platelets (Bld) [#/Vol] 333 10*3/uL Normal 150-450 [facility] Comment on above: Performed By: #### L 700.6800, L100.0100, L501.2450, L500.4050 ####[facility] [address] [place], [address] RBC (Bld) [#/Vol] 4.51 10*6/uL Normal 4.2-5.4 [facility] Comment on above: Performed By: #### L 700.6800, L100.0100, L501.2450, L500.4050 ####[facility] [address] [place], [address] RDW SD 42.0 fl Normal 35.1-43.9 [facility] Comment on above: Performed By: #### L 700.6800, L100.0100, L501.2450, L500.4050 ####[facility] [address] [place], [address] WBC (Bld) [#/Vol] 13.8 10*3/uL High 4.4-11.0 [facility] Comment on above: Performed By: #### L 700.6800, L100.0100, L501.2450, L500.4050 ####[facility] [address] [place], [address] Comprehensive Metabolic Prof ilon 01-06-2024 Albumin [Mass/Vol] 3.5 g/dL Normal 3.2-5.0 [facility] Comment on above: Performed By: #### L 700.6800, L100.0100, L501.2450, L500.4050 ####[facility] [address] [place], [address] Albumin/Globulin [Mass ratio] 1.1 {ratio} Normal 0.9-2.4 [facility] Comment on above: Performed By: #### L 700.6800, L100.0100, L501.2450, L500.4050 ####[facility] [address] [place], [address] ALK P 63 U/L Normal 45-117 [facility] Comment on above: Performed By: #### L 700.6800, L100.0100, L501.2450, L500.4050 ####[facility] [address] [place], [address] ALT [Catalytic activity/Vol] 12 U/L Low 13-56 [facility] Comment on above: Performed By: #### L 700.6800, L100.0100, L501.2450, L500.4050 ####[facility] [address] [place], [address] AST [Catalytic activity/Vol] 9 U/L Low 15-37 [facility] Comment on above: Performed By: #### L 700.6800, L100.0100, L501.2450, L500.4050 ####[facility] [address] [place], [address] Bilirubin [Mass/Vol] 0.40 mg/dL Normal 0.20-1.00 [facility] Comment on above: Result Comment: For patients on eltrombopag therapy, use of Dimension [place] TBIL is not recommended. Performed By: #### L 700.6800, L100.0100, L501.2450, L500.4050 ####[facility] [address] [place], [address] BUN/CRE 8.4 RATIO Low 10-20 [facility] Comment on above: Performed By: #### L 700.6800, L100.0100, L501.2450, L500.4050 ####[facility] [address] [place], [address] CA,Total 8.9 mg/dL Normal 8.5-10.1 [facility] Comment on above: Performed By: #### L 700.6800, L100.0100, L501.2450, L500.4050 ####[facility] [address] [place], [address] Chloride [Moles/Vol] 107 mmol/L Normal 98-107 [facility] Comment on above: Performed By: #### L 700.6800, L100.0100, L501.2450, L500.4050 ####[facility] [address] [place], [address] CO2 [Moles/Vol] 26.0 mmol/L Normal 21.0-32.0 [facility] Comment on above: Performed By: #### L 700.6800, L100.0100, L501.2450, L500.4050 ####[facility] [address] [place], [address] Creatinine [Mass/Vol] 0.95 mg/dL Normal 0.55-1.02 [facility] Comment on above: Result Comment: The validity of the calculated GFR GFRAA in patients over 70 years has not been determined. Clinical correlation is essential. Performed By: #### L 700.6800, L100.0100, L501.2450, L500.4050 ####[facility] [address] [place], [address] ECRCL 68.47 ml/min Normal [facility] Comment on above: Performed By: #### L 700.6800, L100.0100, L501.2450, L500.4050 ####[facility] [address] [place], [address] EST GFR - AA 83 mL/min Normal >60 [facility] Comment on above: Result Comment: Afri can Haitian GFR Calc Performed By: #### L 700.6800, L100.0100, L501.2450, L500.4050 ####[facility] [address] [place], [address] GAP 5 Normal 5-15 [facility] Comment on above: Performed By: #### L 700.6800, L100.0100, L501.2450, L500.4050 ####[facility] [address] [place], [address] GFR/1.73 sq M.predicted among non-blacks MDRD (S/P/Bld) [Vol rate/Area] 69 mL/min/{1.73_m2} Normal >60 [facility] Comment on above: Result Comment: Non- GFR Calc Performed By: #### L 700.6800, L100.0100, L501.2450, L500.4050 ####[facility] [address] [place], [address] Globulin (S) [Mass/Vol] 3.1 g/dL Normal 2.2-4.2 [facility] Comment on above: Performed By: #### L 700.6800, L100.0100, L501.2450, L500.4050 ####[facility] [address] [place], [address] Glucose [Mass/Vol] 80 mg/dL Normal 74-106 [facility] Comment on above: Performed By: #### L 700.6800, L100.0100, L501.2450, L500.4050 ####[facility] [address] [place], [address] Potassium [Moles/Vol] 3.6 mmol/L Normal 3.5-5.1 [facility] Comment on above: Performed By: #### L 700.6800, L100.0100, L501.2450, L500.4050 ####[facility] [address] [place], [address] Sodium [Moles/Vol] 138 mmol/L Normal 136-145 [facility] Comment on above: Performed By: #### L 700.6800, L100.0100, L501.2450, L500.4050 ####[facility] [address] [place], [address] T PROT 6.6 g/dL Normal 6.4-8.2 [facility] Comment on above: Performed By: #### L 700.6800, L100.0100, L501.2450, L500.4050 ####[facility] [address] [place], [address] Urea nitrogen [Mass/Vol] 8 mg/dL Normal 7-18 [facility] Comment on above: Performed By: #### L 700.6800, L100.0100, L501.2450, L500.4050 ####[facility] [address] [place], [address] Emergency Department Summary on 01-06-2024 Emergency Department Summary [facility] Medical Records Department [address] [place] [address] Emergency Department Summary 01/06/24 MR#: [id number] Acct: [id number] Name: PAT MEDINAN Rep #: [id number] : 1980 43 From: Arturo Craig DO [...] that she did go to tubing at [facility] last week but does not think she swallowed any water. She has not had any exotic food or travel. No recent antibiotic use. PFSH [facility] Medical History Right rotator cuff tear Wears [...] pain. Different (more content not included)... Normal [facility] Lipaseon 01-06-2024 Lipase [Catalytic activity/Vol] 37 U/L Normal 13-75 [facility] Comment on above: Result Comment: Padma gee note: LIPASE revised reference range effective 22. New Lipase methodology. Expected to produce lower values than the previous assay method. NEW Reference Range: 13 - 75 U/L Performed By: #### L 700.6800, L100.0100, L501.2450, L500.4050 ####[facility] [address] [place], [address] ,Serum,hCG Quali.on 01-06-2024 HCG, SERUM QUAL Normal [facility] Comment on above: Result Comment: Canc elled via OM: Ordered/Entered in error Performed By: #### L 700.6800, L100.0100, L501.2450, L500.4050 ####[facility] [address] [place], [address] INTERNAL QC OK? Normal [facility] Comment on above: Result Comment: Canc elled via OM: Ordered/Entered in error Performed By: #### L 700.6800, L100.0100, L501.2450, L500.4050 ####[facility] [address] [place], [address] RECORD KIT LOT# Normal [facility] Comment on above: Result Comment: Canc elled via OM: Ordered/Entered in error Performed By: #### L 700.6800, L100.0100, L501.2450, L500.4050 ####[facility] [address] [place], [address] Urinalysis, Completeon 01-05 BACTERIA 1+ /hpf Normal None Seen [facility] Comment on above: Order Comment: COLLE CTOR TO SPECIFY Performed By: #### L 400.0001 #### [facility] [address] [place], [address] EPI,SQUAMOUS 5-10 SEEN Normal 5-10 [facility] Comment on above: Order Comment: COLLE CTOR TO SPECIFY Performed By: #### L 400.0001 #### [facility] [address] [facility] [address] WBC 0-5 SEEN Normal 0-5 [facility] Comment on above: Order Comment: COLLE CTOR TO SPECIFY Performed By: #### L 400.0001 #### [facility] [address] [place], [address] Mucus Ql (Urine sed) 0 SEEN Normal [facility] Comment on above: Order Comment: COLLE CTOR TO SPECIFY Performed By: #### L 400.0001 #### [facility] [address] [place], [address] RBC 0 SEEN Normal 0-5 [facility] Comment on above: Order Comment: COLLE CTOR TO SPECIFY Performed By: #### L 400.0001 #### [facility] [address] [place], [address] CNPNon 01-02-2024 CNPN Normal [facility] Emergency Department Summary on 01-01-2024 Emergency Department Summary [facility] Medical Records Department [address] [place] [address] Emergency Department Summary 01/01/24 MR#: [id number] Acct: [id number] Name: PAT MEDINA Rep #: [id number] : 1980 43 From: Pablo Jarquin MD PCP: Dr. Maile Norman MD Status:REG ER Location: ED HPI History of Present Illness HPI Narrative: 43-year-old female tvxiu-whtg-piczadfh with right rotator cuff surgery 3 months [...] can flex and extend her elbow. Normal service greeter strength. Normal radial pulse. Normal touch sensation. [...] for cachect (more content not included)... Normal [facility] CNPNon 12-27-2023 CNPN Normal [facility] CNOVon 12-20-2023 CNOV Normal [facility] CNOVon 10-11-2023 CNOV Office Visit (AGHWW1 ) PAT MEDINA ([id number]) 1980 F Date Time Provider Department 10/11/23 [...] ional Support/Reassurance;P illow support;Positioning;S plinting -- Pat Medina presents today for: Second post-surgery follow up [...] AND Elbow Surgeon Department of Orthopaedic Surgery [facility] Medical Decision Making: Medical Decision Making [...] out Date Reviewed: 10/11/2023 Reviewed by: Merline Corcoran LPN - Fully Assessed Reason for Visit: [...] (more content not included)... Normal [facility] LABORATORYOrdered By: SYSTEM SYSTEM on 10-10-2023 Lipase [Catalytic activity/Vol] 36 U/L Normal 16 - 77 U/L AO ADM SS LIPon 10-10-2023 Lipase Level 36 U/L Normal 16-77 [facility] ([place]) Comment on above: Performed By: #### L IP #### [place] [address] .Auto Diffon 09-26-2023 Basophil, Absolute 0.2 10 3/mcL Normal 0.0-0.2 [facility] ([place]) Comment on above: Performed By: #### A [place] CBC, MDW #### [address] [address] Basophils/100 WBC (Bld) 1.4 % Normal 0.0-2.5 [facility] ([place]) Comment on above: Performed By: #### A [place] CBC, MDW #### [address] [address] Eosinophil, Absolute 0.0 10 3/mcL Normal 0.0-0.4 [facility] ([place]) Comment on above: Performed By: #### A [place] CBC, MDW #### [address] [address] Eosinophils/100 WBC (Bld) 0.2 % Normal 0.0-7.0 [facility] ([place]) Comment on above: Performed By: #### A [place] CBC, MDW #### [address] [address] Lymphocyte, Absolute 2.6 10 3/mcL Normal 0.8-3.9 [facility] ([place]) Comment on above: Performed By: #### A [place] CBC, MDW #### [address] [address] Lymphocytes/100 WBC (Bld) 20.9 % Normal 10.0-50.0 [facility] ([place]) Comment on above: Performed By: #### A [place] CBC, MDW #### [address] [address] Monocyte, Absolute 0.7 10 3/mcL Normal 0.2-1.0 [facility] ([place]) Comment on above: Performed By: #### A [place] CBC, MDW #### [address] [address] Monocytes/100 WBC (Bld) 5.3 % Normal 1.7-13.0 [facility] ([place]) Comment on above: Performed By: #### A [place] CBC, MDW #### [address] [address] Neutrophils/100 WBC (Bld) 72.2 % Normal 37.0-80.0 [facility] ([place]) Comment on above: Performed By: #### A IWONA [place] CBC, MDW #### [address] [address] .MDWon 09-26-2023 Monocyte Distribution Width 19.23 Normal 0.00-20.00 [facility] ([place]) Comment on above: Result Comment: For ED adult patients suspected of sepsis, MDW<=20.0 does not rule out sepsis or risk of sepsis Performed By: #### A I[place]ONA SAN[place] CBC, MDW #### [place] [address] .NEUABSon 09-26-2023 Neutrophil, Absolute 9.0 10 3/mcL High 2.9-6.2 [facility] ([place]) Comment on above: Performed By: #### A IWONA SANFORD CBC, MDW #### [place] [address] CBCon 09-26-2023 Erythrocyte distribution width (RBC) [Ratio] 14.3 % Normal 11.5-14.5 [facility] ([place]) Comment on above: Performed By: #### A IWONA SANFORD CBC, MDW #### [place] [address] Hematocrit (Bld) [Volume fraction] 43.0 % Normal 37.0-47.0 [facility] ([place]) Comment on above: Performed By: #### A IWONA SANFORD CBC, MDW #### [place] [address] Hgb 15.1 G/dL Normal 12.0-16.0 [facility] ([place]) Comment on above: Performed By: #### A IWONA SAN[place]ORD CBC, MDW #### [place] [address] MCH (RBC) [Entitic mass] 32.6 pg High 27.0-31.2 [facility] ([place]) Comment on above: Performed By: #### A IWONA SAN[place] CBC, MDW #### [address] [address] MCHC 35.2 G/dL Normal 33.0-37.0 [facility] ([place]) Comment on above: Performed By: #### A [place] CBC, MDW #### [address] [address] MCV (RBC) [Entitic vol] 92.6 fL Normal 80.0-94.0 [facility] ([place]) Comment on above: Performed By: #### A IWONA SAN[place]ORD CBC, MDW #### [address] [address] Platelet 365 10 3/mcL Normal 130-400 [facility] ([place]) Comment on above: Performed By: #### A IWONA SANFORD CBC, MDW #### [address] [address] Platelet mean volume (Bld) [Entitic vol] 7.6 fL Normal 7.4-10.4 [facility] ([place]) Comment on above: Performed By: #### A IWONA SANFORD CBC, MDW #### [address] [address] RBC 4.64 10 6/mcL Normal 4.20-5.40 [facility] ([place]) Comment on above: Performed By: #### A IWONA SANFORD CBC, MDW #### [address] [address] WBC 12.4 10 3/mcL High 4.6-10.8 [facility] ([place]) Comment on above: Performed By: #### A IWONA SANFORD CBC, MDW #### [address] [address] LABORATORYOrdered By: SYSTEM SYSTEM on 09-26-2023 Basophil, [...] 09/26/2023 9:41:45 PM Ordering Provider: TU Solo [facility] ([place]) MAXIruben 09-13-2023 [facility] Office Visit (AGHWW1 ) PAT MEDINA ([id number]) 1980 F Date Time Provider Department 09/13/23 1:45 PM [facility] During your visit today, we recorded the following information about you: Respiration Weight Height 18/minute 57.2 kg 1.651 m Louis Valencia MD 09/13/2023 1:40 PM Signed PAIN EVALUATION 09/13/2023 1330 Pain Level: 7 Pain Location: Shoulder-Right Description: Aching;Burning;Stabbi ng Frequency: Continuous Pat Medina presents today for: First post-surgery follow up [...] AND Elbow Surgeon Department of Orthopaedic Surgery [facility] Medical Decision Making: Medical Decision Making [...] out Date Reviewed: 09/13/2023 Reviewed by: Merline Corcoran LPN - Fully Assessed Reason for Visit: [...] Encounter Status:Closed by L[facility] VALENCIA on 09/13/23 Normal [facility] [facility] ANES POSTPROC EVALon 024 ANES POSTPROC EVAL HNO ID: [id number] Author: MADAI JORGE MD Service: Anesthesiology Author Type: Physician Type: Anesthesia Postprocedure Evaluation Filed: 08/29/2023 16:02 Note Text: POST ANESTHESIA EVALUATION NOTE : 1980 Procedure Summary Date: 08/29/23 Room / Location: [facility] / [facility] Anesthesia Start: 1303 Anesthesia Stop: 1416 [...] SIGNATURE: Madai Jorge MD PATIENT NAME: Pat Medina DATE: August 29, 2023 TIME: 4:02 PM CSN: [id number] Normal [facility] ANES PRE-OPon 08-29-2023 ANES PRE-OP HNO ID: [id number] Author: OTF MCCLENDON MD Service: Anesthesiology Author Type: Physician Type: Anesthesia Preprocedure Evaluation Filed: 08/29/2023 12:02 Note Text: ANESTHESIOLOGY DAY OF SURGERY NOTE : 1980 Procedure Information Date/Time: 08/29/23 1205 Procedure: ARTHROSCOPY SHOULDER BICEPS TENODESIS (Right: Shoulder) - REG - INTERSCALENE BLOCK Location: [place] [address] / [facility] Surgeons: Louis Valencia MD Estimated body mass [...] and consent discussed: yes. Patient / Responsible Green Party agrees to proceed: yes Patient / [...] SIGNATURE: Otf Mcclendon MD PATIENT NAME: Pat Medina DATE: August 29, 2023 TIME: 11:31 AM CSN: [id number] Normal [facility] HCG Preg Ur Qlon 08-29-2023 HCG ( test) Ql (U) Negative Normal Negative [facility] Comment on above: Order Comment: Speci men Type: URINE SPECIMENOrdering Facility: [facility] Address: [address] [place] [address] Result Comment: This test is intended to aid in the early detection of . Very dilute urine samples, as indicated by a low specific gravity, may not contain insurance account representative levels of hCG. This test detects [...] for . Performed By: #### 2 106-3 ####[facility] LABCLIA [id number] [place] [address] [facility] HISTORY PHYSICALon HISTORY PHYSICAL HNO ID: [id number] Author: LOUIS VALENCIA MD Service: Orthopaedic Surgery [...] SIGNATURE: Louis Valencia MD PATIENT NAME: Pat Medina DATE: August 29, 2023 TIME: 11:52 AM Normal [facility] OPERATIVE NOon 08-29-2023 OPERATIVE NO HNO ID: [id number] Author: LOUIS VALENCIA MD Service: Orthopaedic Surgery Author Type: Physician Type: Operative Report Filed: 09/07/2023 11:31 Note Text: OPERATIVE/PROCEDURE REPORT LOG ID: [id number] SURGERY/PROCEDURE DATE: 08/29/2023 INCISION/PROCEDURE START TIME: 1:29 PM INCISION CLOSE/PROCEDURE END TIME: 2:03 PM SURGEON(S)/PROCEDURAL IST(S) AND LAW RESEARCHER(S): Surgeon(s) and Role: * Louis Valencia MD - Primary Physician Change Management Analyst: Laura Martin PA-C SURGERY/PROCEDURE(S): Right shoulder arthroscopic rotator cuff repair of supraspinatus (1 cm) and subscapularis (5 mm), open biceps tenodesis ANESTHESIA: General SURGERY/PROCEDURE DETAILS: Pat Medina is a 43 year old woman who [...] (more content not included)... Normal [facility] Afshin 08-26-2023 CNPN Telephone (AGPOB1) PAT MEDINA ([id number]) 1980 F Date Time Provider Department 08/26/23 LOUIS VALENCIA RAUDEL During your visit today, we recorded the following information about you: Doyle [place] PpgAlis 08/26/2023 4:13 PM Signed I just left [...] out Date Reviewed: 08/18/2023 Reviewed by: Radha Garg APRN.MARKING MACHINE OPERATOR - Fully Assessed Reason for Visit: Preparations [...] failure (HCC) [I50.9] 08/18/2023 Encounter Status:Closed by [facility] SURVEILLANCE SUPERVISOR ALIS ESPINOSA on 08/26/23 [facility] HISTORY PHYSICALon HISTORY PHYSICAL HNO ID: [id number] Author: RADHA GARG APRN.CNP Service: ? Author Type: Nurse Practitioner [...] Initiated: No labs ordered per surgeon in [facility] I spent a total of 40 minutes on the date of the service which included preparing to see the patient, [id number] patient care, completing clinical documentation, obtaining and/or [...] as needed (headache). REASON FOR VISIT: Pat Medina is a 43 year old female who [...] (more content not included)... Normal [facility] STREP A MOLECULAR (POC)on Procedural Control Valid [facility] Strep A (POCT) Negative Negative [facility] XR Chest PA and Lateralon IMPRESSION: No acute radiographic abnormality. Town Marshal: DARSHAN Transcribe Date/Time: Aug 11 2023 8:47A Dictated by : LIZBETH GONZALEZ DO This examination was interpreted and the report reviewed and electronically signed by: LIZBETH GONZALEZ DO on Aug 11 2023 8:50AM [facility] DIVISION OF RADIOLOGY * * *Final Report* [...] soft tissues: Unremarkable. DIVISION OF RADIOLOGY Provider, [facility] - 08/11/2023 * * *Final Report* [...] Unremarkable. IMPRESSION IMPRESSION: No acute radiographic abnormality. Town Marshal: PSCB Transcribe Date/Time: Aug 11 2023 8:47A Dictated by : LIZBETH GONZALEZ DO This examination was interpreted and the report reviewed and electronically signed by: LIZBETH GONZALEZ DO on Aug 11 2023 8:50AM EST [facility] Radiology Study observation (narrative) [facility] XR Chest PA and LateralOrder ed By: Ccf Provider on 08-11-2023 [facility] CNOVon 08-09-2023 CNOV Office Visit (AGHWW1 ) PAT MEDINA ([id number]) 1980 F Date Time Provider Department 08/09/23 [...] tendinitis of right upper extremity M75.21 Pat Medina presents today for evaluation of her right [...] negative Drop arm test: negative Biceps/joss Signs Obion's test: positive Clicking/popping: positive Speed's test: positive [...] ROTATOR CUFF AND GLENOID LABRUM. PLAN: Pat Medina presents today with persistent pain in the [...] Surgeon Department of Orthopaedic Surgery [facility] (more content not included)... Normal [facility] INFLUENZA A&B MOLECULAR (POC )on 08-01-2023 Flu A (POCT) Negative Negative [facility] Flu B (POCT) Negative Negative [facility] Procedural Control Valid [facility] CNOVon 05-12-2023 CNOV Office Visit (SPAGWO ) PAT MEDINA ([id number]) 1980 F Date Time Provider Department 05/12/23 9:00 AM CHARLES STANTON During your visit today, we recorded the following information about you: Pulse Respiration 68/minute 16/minute Charles Stanton APRN.CNP 05/12/2023 2:29 PM Signed [facility] Today's Date: 05/12/2023 Last Visit: N/A Name: Pat Medina : 1980 Purpose: New Patient Consultation Chief complaint: right shoulder pain Referring Clinician: Anny Pham CNP. Pertinent Past Medical History: right shoulder, depression, anxiety, ADD. Pertinent Past Surgeries: none History of Present Illness (HPI): 05/11/2023 - Initial HPI (Obtained by Charles Stanton CNP). DURATION AND ONSET: The pain complaint [...] checked and validated on 05/12/2023 by Charles Stanton APRN.MARKING MACHINE OPERATOR All prescriptions have been APPROPRIATELY filled. No suspicious activity was identified. Recent Drug screens: AG SPINE COMBINATION 05/12/2023 Questionnaire GREENLIGHT Completed Date 05/12/2023 Questionnaire Opiod Risk Tool Completed Date 05/12/2023 Comments 4 Greenlight Questionnaire GREENLIGHT Completed Date 05/12/2023 Opioid Risk Tool Opi (more content not included)... [facility] Afshin 05-12-2023 CNPN Telephone (SPAGWO) PAT MEDINA ([id number]) 1980 F Date Time Provider Department 05/12/23 CHARLES STANTON During your visit today, we recorded the following information about you: Kimberly Crowe 05/12/2023 10:14 AM Signed The referral to Orthopaedics for Chronic right shoulder pain, Labral tear of shoulder, degenerative, right has been submitted via the [facility] Internal Referral Request form on the [facility] Appointment Portal. Confirmation # [id number] Kimberly Cornejoard Allergies As of Date: 05/12/2023 Noted Allergy [...] out Date Reviewed: 05/12/2023 Reviewed by: Charles Stanton APRN.MARKING MACHINE OPERATOR - Fully Assessed Reason for Visit: Referral Information [0402] Prescriptions as of 05/12/2023 - oxyCODONE-acetaminoph en [...] KIMBERLY CROWE on 05/12/23 Normal [facility] UA DIP, URINE (POC)on 2022 BILIRUBIN UA (POCT) Negative Negative [facility] CLARITY UA (POCT) Clear [facility] COLOR UA (POCT) Yellow [facility] GLUCOSE UA (POCT) Negative Negative mg/dL [facility] Hemoglobin Ql (U) Negative Negative [facility] KETONE UA (POCT) Negative Negative mg/dL [facility] LEUKOCYTES UA (POCT) Negative Negative [facility] NITRITE UA (POCT) Negative Negative [facility] PH UA (POCT) 6.0 4.5 - 8.0 [facility] Protein Ql (U) 30 mg/dL Abnormal Negative mg/dL [facility] SPECIFIC GRAVITY UA (POCT) <=1.005 Abnormal 1.005 - 1.030 [facility] UROBILINOGEN UA (POCT) 0.2 E.U./dL Normal E.U./dL [facility] UA DIP, URINE (POC)on 2022 BILIRUBIN UA (POCT) Negative Negative [facility] CLARITY UA (POCT) Clear [facility] COLOR UA (POCT) Yellow [facility] GLUCOSE UA (POCT) Negative Negative mg/dL [facility] Hemoglobin Ql (U) Trace-intact Abnormal Negative [facility] KETONE UA (POCT) Negative Negative mg/dL [facility] LEUKOCYTES UA (POCT) Large Abnormal Negative [facility] NITRITE UA (POCT) Negative Negative [facility] PH UA (POCT) 6.5 4.5 - 8.0 [facility] Protein Ql (U) Negative Negative mg/dL [facility] SPECIFIC GRAVITY UA (POCT) 1.025 1.005 - 1.030 [facility] UROBILINOGEN UA (POCT) 0.2 E.U./dL Normal E.U./dL [facility] XR Chest PA and Lateralon IMPRESSION: No acute radiographic abnormality. Town Marshal: DARSHAN Transcribe Date/Time: Mar 30 2023 8:48A Dictated by : OTTONIEL OSHEA MD This examination was interpreted and the report reviewed and electronically signed by: OTTONIEL OSHEA MD on Mar 30 2023 8:49AM [facility] DIVISION OF RADIOLOGY * * *Final Report* [...] soft tissues: Unremarkable. DIVISION OF RADIOLOGY Provider, [facility] - 03/30/2023 * * *Final Report* [...] Unremarkable. IMPRESSION IMPRESSION: No acute radiographic abnormality. Town Marshal: PSCB Transcribe Date/Time: Mar 30 2023 8:48A Dictated by : OTTONIEL OSHEA MD This examination was interpreted and the report reviewed and electronically signed by: OTTONIEL OSHEA MD on Mar 30 2023 8:49AM EST [facility] Radiology Study observation (narrative) [facility] XR Chest PA and LateralOrder ed By: Ccf Provider on 03-30-2023 [facility] CNPShelly 03-23-2023 CNPN Telephone (AGSPINE3) PAT MEDINA ([id number]) 1980 F Date Time Provider Department 03/23/23 CHARLES STANTON [place]3 During your visit today, we recorded the [...] Date Reviewed: 02/08/2023 Reviewed by: Sam Khan APRN.MARKING MACHINE OPERATOR - Fully Assessed Reason for Visit: Appointment [...] DAI GUTIERREZ on 03/23/23 Normal [facility] XR SHOULDER MINIMUM 2 VIEWS RIGHTon 03-15-2023 [...] 03/15/2023 10:58:13 AM Ordering Provider: LAVONNE Solo [facility] ([place]) MRI SHOULDER WO/W [place] CHRISTIAN Ton 03-11-2023 [facility] XR Sacrum and Coccyx 3 Views on 12-03-2022 IMPRESSION: NO ACUTE OSSEOUS ABNORMALITY Town Marshal: DARSHAN Transcribe Date/Time: Dec 03 2022 5:09P Dictated by : TYESHA MARX MD This examination was interpreted and the report reviewed and electronically signed by: TYESHA MARX MD on Dec 03 2022 5:09PM [facility] DIVISION OF RADIOLOGY * * *Final Report* [...] --- IMPRESSION IMPRESSION: NO ACUTE OSSEOUS ABNORMALITY Town Marshal: DARSHAN Transcribe Date/Time: Dec 03 2022 5:09P Dictated by : TYESHA MARX MD This examination was interpreted and the report reviewed and electronically signed by: TYESHA MARX MD on Dec 03 2022 5:09PM EST [facility] XR Sacrum and Coccyx 3 Views Ordered By: [facility] Provider on 12-03-2022 [facility] XR Sacrum and Coccyx 3 Views on 12-01-2022 Radiology Study observation (narrative) [facility] STREP A MOLECULAR (POC)on Procedural Control Valid [facility] Strep A (POCT) Negative Negative [facility] XR DIGIT GENERAL 3V FRONTAL/ LAT/OBL RIGHTon 03-16-2022 [facility] XR Finger - right AP and Lat eral and obliqueon 03-16-2022 IMPRESSION: Soft tissue swelling. There is no radiopaque foreign body. Town Marshal: DARSHAN Transcribe Date/Time: Mar 16 2022 12:22P Dictated by : NATY GRAFF MD This examination was interpreted and the report reviewed and electronically signed by: NATY GRAFF MD on Mar 16 2022 12:25PM [facility] DIVISION OF RADIOLOGY * * *Final Report* [...] relevant examinations available for comparison within the [facility] Imaging Archives. RESULT: AP, oblique and lateral radiographs of the right fourth finger demonstrate focal soft tissue prominence/swelling along the antiradial the lower margin of the distal phalanx. There is no radiopaque foreign body. No underlying fracture. DIVISION OF RADIOLOGY Provider, [facility] - 03/16/2022 * * *Final Report* * [...] relevant examinations available for comparison within the [facility] Imaging Archives. RESULT: AP, oblique and lateral radiographs of the right fourth finger demonstrate focal soft tissue prominence/swelling along the antiradial the lower margin of the distal phalanx. There is no radiopaque foreign body. No underlying fracture. IMPRESSION IMPRESSION: Soft tissue swelling. There is no radiopaque foreign body. Town Marshal: [facility] Transcribe Date/Time: Mar 16 2022 12:22P Dictated by : NATY GRAFF MD This examination was interpreted and the report reviewed and electronically signed by: NATY GRAFF MD on Mar 16 2022 12:25PM EST [facility] Radiology Study observation (narrative) [facility] XR Finger - right AP and Lat eral and obliqueOrdered By: Ccf Provider on 03-16-2022 [facility] Basic Metabolic Panelon 06-28 Anion gap [Moles/Vol] 0 mmol/L Low 3-13 [facility] Comment on above: Performed By: #### H EMDF, BMP3, QWAL2 #### [facility] [address] [place] [address] Calcium [Mass/Vol] 9.4 mg/dL Normal 8.4-10.4 [facility] Comment on above: Performed By: #### H EMDF, BMP3, QWAL2 #### [facility] [address] [place] [address] CO2 [Moles/Vol] 30 mmol/L Normal 22-30 [facility] Comment on above: Performed By: #### H EMDF, BMP3, QWAL2 #### [facility] [address] [place] [address] Creatinine [Mass/Vol] 0.70 mg/dL Normal 0.52-1.25 [facility] Comment on above: Performed By: #### H EMDF, BMP3, QWAL2 #### [facility] [address] [place] [address] eGFR OTHER > 90.0 Normal >60 [facility] Comment on above: Result Comment: KDIG [...] tubular creatinine secretion. Performed By: #### H RADHA BMP3, QWAL2 #### [facility] [address] [place] [address] GFR/1.73 sq M.predicted among blacks MDRD (S/P/Bld) [Vol rate/Area] mL/min/{1.73_m2} Normal >60 [facility] Comment on above: Performed By: #### H EMDF, BMP3, QWAL2 #### [facility] [address] [place] [address] Glucose [Mass/Vol] 86 mg/dL Normal 70-100 [facility] Comment on above: Performed By: #### H RADHA, BMP3, QWAL2 #### [facility] [address] [place] [address] Urea nitrogen [Mass/Vol] 2 mg/dL Low 9-20 [facility] Comment on above: Performed By: #### H RADHA, BMP3, QWAL2 #### [facility] [address] [place] [address] Chloride [Moles/Vol] 109 mmol/L High 98-107 [facility] Comment on above: Performed By: #### H GAMALF, BMP3, QWAL2 #### [facility] [address] [place] [address] Potassium [Moles/Vol] 3.2 mmol/L Low 3.5-5.1 [facility] Comment on above: Performed By: #### H EMDF, BMP3, QWAL2 #### [facility] [address] [place] [address] Sodium [Moles/Vol] 139 mmol/L Normal 135-145 [facility] Comment on above: Performed By: #### H EMDF, BMP3, QWAL2 #### [facility] [address] [place] [address] Anion gap [Moles/Vol] 0 mmol/L Low 3 - 13 mmol/L [facility] Calcium [Mass/Vol] 9.4 mg/dL 8.4 - 10. 4 mg/dL [facility] Chloride [Moles/Vol] 109 mmol/L High 98 - 107 mmol/L [facility] CO2 [Moles/Vol] 30 mmol/L 22 - 30 mmol/L [facility] Creatinine [Mass/Vol] 0.7 mg/dL 0.52 - 1.25 mg/dL [facility] EGFR IF NonAfrican Haitian >90.0 >60 mL/min [facility] Comment on above: [...] - 10.7 10*3/uL [facility] Test Performed by [facility] [employer] [facility], [facility] , [address] LAB [facility] CT HEAD WO CONTRASTon 2021 Patient Name: PAT MEDINA Computed Tomography ACCESSION EXAM DATE/TIME PROCEDURE ORDERING PROVIDER [id number] 07/18/2021 18:[address] Head or Brain w/o MD PEREA DOUGALAS R. Contrast CPT code 46680 Reason For Exam (CT Head or Brain [...] on --- Final --- Dictating Physician: MD SPRAGUE MALAY Signed Date and Time: 07/18/2021 6:58 pm Signed by: MD SPRAGUE MALAY Transcribed Date and Time: 07/18/2021 6:59 [facility] Thai Sprague MD - 07/18/2021 Patient Name: PAT MEDINA Computed Tomography ACCESSION EXAM DATE/TIME PROCEDURE ORDERING PROVIDER [id number] 07/18/2021 18:[address] Head or Brain w/o MD PEREA DOUGALAS R. Contrast CPT code 29259 Reason For Exam (CT Head or Brain [...] on --- Final --- Dictating Physician: MD SPRAGUE MALAY Signed Date and Time: 07/18/2021 6:58 pm Signed by: MD SPRAGUE MALAY Transcribed Date and Time: 07/18/2021 6:59 [facility] Work Phone: CT HEAD WO CONTRASTOrdered B y: Thai Mali on 07-18-2021 [facility] Work Phone: CT Head or Brain w/o Contras ton 07-18-2021 CT Head or Brain w/o Contrast Patient Name: PAT MEDINA Computed Tomography ACCESSION EXAM DATE/TIME PROCEDURE ORDERING PROVIDER [id number] 07/18/2021 18:[address] Head or Brain w/o MD PEREA DOUGALAS R. Contrast CPT code 26353 Reason For Exam (CT Head or Brain [...] Report Dictated on Final Dictating Physician: MD SPRAGUE MALAY Signed Date and Time: 07/18/2021 6:58 pm Signed by: MD SPRAGUE MALAY Transcribed Date and Time: 07/18/2021 6:59 Normal [facility] CT MAXILLOFACIAL W CONTRASTo n 07-18-2021 Patient Name: PAT MEDINA Computed Tomography ACCESSION EXAM DATE/TIME PROCEDURE ORDERING PROVIDER [id number] 07/18/2021 19:[address] Maxillofacial w/ MD PEREA DOUGALAS R. Contrast CPT code 03955 Q9967 Reason For Exam (CT Maxillofacial w/ [...] on --- Final --- Dictating Physician: MD SPRAGUE MALAY Signed Date and Time: 07/18/2021 7:11 pm Signed by: MD SPRAGUE MALAY Transcribed Date and Time: 07/18/2021 7:14 [facility] RAD Thai Srpague MD - 07/18/2021 Patient Name: PAT MEDINA Computed Tomography ACCESSION EXAM DATE/TIME PROCEDURE ORDERING PROVIDER [id number] 07/18/2021 19:[address] Maxillofacial w/ MD MARIAELENA, ALISSON R. Contrast CPT code 02496 Q9967 Reason For Exam (CT Maxillofacial w/ [...] on --- Final --- Dictating Physician: MD SPRAGUE MALAY Signed Date and Time: 07/18/2021 7:11 pm Signed by: MD SRPAGUE MALAY Transcribed Date and Time: 07/18/2021 7:14 [facility] Work Phone[facility] Work Phone: CT Maxillofacial w/ Contrast on 07-18-2021 CT Maxillofacial w/ Contrast Patient Name: PAT MEDINA Computed Tomography ACCESSION EXAM DATE/TIME PROCEDURE ORDERING PROVIDER [id number] 07/18/2021 19:[address] Maxillofacial w/ MD MARIAELENA, ALISSON Sanz Contrast CPT code 81259 Q9967 Reason For Exam (CT Maxillofacial w/ [...] Report Dictated on Final Dictating Physician: MD SPRAGUE MALAY Signed Date and Time: 07/18/2021 7:11 pm Signed by: MD SPRAGUE MALAY Transcribed Date and Time: 07/18/2021 7:14 Normal [facility] HCG Qualitative, Serumon hCG Qual Negative [facility] Comment on above: Reference Range: NEG ATIVE Effective 09/07/2019, the reference interval for the qualitative test has been updated. This test detects hCG at concentrations of 10 mIU/L or greater in serum. Hemogram w/ Autodiffon 07-18 Abs Baso Cnt 0.1 10*3/uL Normal 0.0-0.2 [facility] Comment on above: Performed By: #### H EMDF, BMP3, QWAL2 #### [facility] [address] [place] [address] Abs Neutrophile Cnt 5.0 10*3/uL Normal 1.8-7.0 [facility] Comment on above: Performed By: #### H EMDF, BMP3, QWAL2 #### [facility] [address] [place] [address] Basophils/100 WBC (Bld) 1.3 % Normal 0.0-2.0 [facility] Comment on above: Performed By: #### H EMDF, BMP3, QWAL2 #### [facility] [address] [place] [address] Eosinophils (Bld) [#/Vol] 0.1 10*3/uL Normal 0.0-0.5 [facility] Comment on above: Performed By: #### H EMDF, BMP3, QWAL2 #### [facility] [address] [place] [address] Eosinophils/100 WBC (Bld) 1.2 % Normal 1.0-6.0 [facility] Comment on above: Performed By: #### H EMDF, BMP3, QWAL2 #### [facility] [address] [place] [address] Erythrocyte distribution width (RBC) [Ratio] 13.2 % Normal 11.5-14.5 [facility] Comment on above: Performed By: #### H EMDF, BMP3, QWAL2 #### [facility] [address] [place] [address] Granulocytes/100 WBC (Bld) 54.7 % Normal 40.0-80.0 [facility] Comment on above: Performed By: #### H EMDF, BMP3, QWAL2 #### [facility] [address] [place] [address] Hematocrit (Bld) [Volume fraction] 37.5 % Normal 35.0-47.0 [facility] Comment on above: Performed By: #### H EMDF, BMP3, QWAL2 #### [facility] [address] [place] [address] Hemoglobin (Bld) [Mass/Vol] 13.1 g/dL Normal 11.7-16.0 [facility] Comment on above: Performed By: #### H EMDF, BMP3, QWAL2 #### [facility] [address] [place] [address] Lymphocytes (Bld) [#/Vol] 3.4 10*3/uL Normal 1.0-4.3 [facility] Comment on above: Performed By: #### H EMDF, BMP3, QWAL2 #### [facility] [address] [place] [address] Lymphocytes/100 WBC (Bld) 36.9 % Normal 20.0-40.0 [facility] Comment on above: Performed By: #### H EMDF, BMP3, QWAL2 #### [facility] [address] [place] [address] MCH (RBC) [Entitic mass] 31.8 pg Normal 26.0-34.0 [facility] Comment on above: Performed By: #### H EMDF, BMP3, QWAL2 #### [facility] [address] [place] [address] MCHC 35.0 % Normal 32.0-36.0 [facility] Comment on above: Performed By: #### H EMDF, BMP3, QWAL2 #### [facility] [address] [place] [address] MCV (RBC) [Entitic vol] 90.7 fL Normal 79.0-98.0 [facility] Comment on above: Performed By: #### H EMDF, BMP3, QWAL2 #### [facility] [address] [place] [address] Monocytes (Bld) [#/Vol] 0.5 10*3/uL Normal 0.0-0.8 [facility] Comment on above: Performed By: #### H EMDF, BMP3, QWAL2 #### [facility] [facility] [address] [place] [address] Monocytes/100 WBC (Bld) 5.9 % Normal 2.0-10.0 [facility] Comment on above: Performed By: #### H EMDF, BMP3, QWAL2 #### [facility] [address] [place] [address] Platelet mean volume (Bld) [Entitic vol] 7.6 fL Normal 7.4-10.4 [facility] Comment on above: Performed By: #### H EMDF, BMP3, QWAL2 #### [facility] [address] [place] [address] Platelets (Bld) [#/Vol] 365 10*3/uL Normal 140-440 [facility] Comment on above: Performed By: #### H EMDF, BMP3, QWAL2 #### [facility] [address] [place] [address] RBC (Bld) [#/Vol] 4.13 10*6/uL Normal 3.80-5.20 [facility] Comment on above: Performed By: #### H EMDF, BMP3, QWAL2 #### [facility] [address] [place] [address] WBC (Bld) [#/Vol] 9.2 10*3/uL Normal 3.6-10.7 [facility] Comment on above: Performed By: #### H EMDF, BMP3, QWAL2 #### [facility] [address] [place] [address] No Panel Informationon 07-18 Test Performed by [facility], [address] , [place], [place] [id number] [place] [address] LAB [facility] Radiology Study observation (narrative) [facility] Work Phone: hCG Qual Pregon 07-18-2021 hCG Qual Preg Negative Normal [facility] Comment on above: Result Comment: Refe geoff Range: NEGATIVE Effective 09/07/2019, the reference interval for the qualitative test has been updated. This test detects hCG at concentrations of 10 mIU/L or greater in serum. Performed By: #### H EMDF, BMP3, QWAL2 #### [facility] [address] [place] [address] XR Chest PA and Lateralon IMPRESSION: No acute radiographic abnormality. Town Marshal: PSCB Transcribe Date/Time: Mar 09 2021 10:00A Dictated by : ALEX MUNIZ MD This examination was interpreted and the report reviewed and electronically signed by: ALEX MUNIZ MD on Mar 09 2021 10:01AM [facility] DIVISION OF RADIOLOGY * * *Final Report* [...] soft tissues: Unremarkable. [facility] * * *Final Report* * [...] Unremarkable. IMPRESSION IMPRESSION: No acute radiographic abnormality. Town Marshal: [place] Transcribe Date/Time: Mar 09 2021 10:00A Dictated by : ALEX MUNIZ MD This examination was interpreted and the report reviewed and electronically signed by: ALEX MUNIZ MD on Mar 09 2021 10:01AM EST [facility] Radiology Study observation (narrative) [facility] XR Chest PA and LateralOrder ed By: [facility] Provider on 03-09-2021 [facility] Basic Panelon 07-02-2018 Anion gap 3 molar conc 8 mmol/L Normal 8-20 [facility] Comment on above: Performed By: #### L P8 ####[address] [address] Calcium mass conc 8.9 mg/dL Normal 8.5-10.1 [facility] Comment on above: Performed By: #### L P8 ####[address] [address] Chloride molar conc 104 mmol/L Normal 98-107 [facility] Comment on above: Performed By: #### L P8 ####[facility] [place], [place] [address] CO2 molar conc 27 mmol/L Normal 21-32 [facility] Comment on above: Performed By: #### L P8 ####[facility] [place], [place] [address] Creatinine mass conc 0.87 mg/dL Normal 0.51-0.95 [facility] Comment on above: Performed By: #### L P8 ####[facility] [place], [place] [address] Glucose mass conc 89 mg/dL Normal 70-99 [facility] Comment on above: Performed By: #### L P8 ####[address] [address] Potassium molar conc 3.5 mmol/L Normal 3.5-5.1 [facility] Comment on above: Performed By: #### L P8 ####[address] [address] Sodium molar conc 136 mmol/L Normal 136-145 [facility] Comment on above: Performed By: #### L P8 ####[address] [address] Urea nitrogen mass conc (Bld) 11 mg/dL Normal 7-25 [facility] Comment on above: Performed By: #### L P8 ####[address] [address] Urea nitrogen/Creatinine mass ratio 13 mg/mg Normal 10-20 [facility] Comment on above: Performed By: #### L P8 ####[facility] [place], [place] [address] CPKon 07-02-2018 CPK 539 U/L High 26-192 [facility] Comment on above: Performed By: #### L CK ####[address] [address] Cult Urineon 07-02-2018 Cult Urine Test performed at [facility] No growth Normal [facility] Comment on above: Performed By: #### C _URI ####[place] [address] Hemogram/Manual Diffon 07-02 Abs. Baso 0.00 thou/cmm Normal 0.00-0.08 [facility] Comment on above: Performed By: #### L MCBD ####[place] [address] Abs. Eosin 0.14 thou/cmm Normal 0.00-0.41 [facility] Comment on above: Performed By: #### L MCBD ####[place] [address] Abs. Lymph 3.15 thou/cmm Normal 1.50-3.65 [facility] Comment on above: Performed By: #### L MCBD ####[place] [address] Abs. Emery 1.10 thou/cmm High 0.20-1.00 [facility] Comment on above: Performed By: #### L MCBD ####[place] [address] Abs. Neut (ANC) 9.31 thou/cmm High 3.00-5.67 [facility] Comment on above: Performed By: #### L MCBD ####[place] [address] Basophil 0.0 % Normal [facility] Comment on above: Performed By: #### L MCBD ####[place] [address] Diff Type Manual Diff Normal [facility] Comment on above: Performed By: #### L MCBD ####[place] [address] Eosinophil 1.0 % Normal [facility] Comment on above: Performed By: #### L MCBD ####[place] [address] Lymphocyte 23.0 % Normal [facility] Comment on above: Performed By: #### L MCBD ####[facility] [place] [address] Monocyte 8.0 % Normal [facility] Comment on above: Performed By: #### L MCBD ####[place] [address] Platelet Estimate Normal Normal [facility] Comment on above: Performed By: #### L MCBD ####[place] [address] RBC Morphology Normal Normal [facility] Comment on above: Performed By: #### L MCBD ####[place] [address] Seg Neutrophil 68.0 % Normal [facility] Comment on above: Performed By: #### L MCBD ####[place] [address] Erythrocyte distribution width Auto Ratio (RBC) 12.0 % Normal 11.5-15.9 [facility] Comment on above: Performed By: #### L MCBD ####[place] [address] Hct 39.1 % Normal 37.0-47.0 [facility] Comment on above: Performed By: #### L MCBD ####[place] [address] Hgb 13.5 g/dL Normal 12.0-16.0 [facility] Comment on above: Performed By: #### L MCBD ####[place] [address] MCH 32.1 pg High 27.0-31.0 [facility] Comment on above: Performed By: #### L MCBD ####[place] [address] MCHC 34.5 % Normal 32.0-36.0 [facility] Comment on above: Performed By: #### L MCBD ####[place] [address] MCV 92.9 fl Normal 81.0-99.0 [facility] Comment on above: Performed By: #### L MCBD ####[facility] [place] [address] MPV 10.3 fl Normal 7.1-10.5 [facility] Comment on above: Performed By: #### L MCBD ####[facility] [place] [address] Platelet 256 thou/cmm Normal 150-400 [facility] Comment on above: Performed By: #### L MCBD ####[place] [address] RBC Test strip #/vol (U) 4.21 mil/cmm Normal 4.20-5.40 [facility] Comment on above: Performed By: #### L MCBD ####[place] [address] WBC 13.7 thou/cmm High 4.8-10.8 [facility] Comment on above: Performed By: #### L MCBD ####[place] [address] MDRD eGFRon 07-02-2018 GFR/1.73 sq M predicted among non-blacks MDRD vol rate/area (S/P/Bld) mL/min/{1.73_m2} Normal >60mL/min/1.73m 2 [facility] Comment on above: Result Comment: If t he patient is , multiply the result by 1.210. Performed By: #### L GFR ####[place] [address] Rapid Influenza A/Bon 2018 Rapid Influenza A/B See below Normal Negative [facility] Comment on above: Result Comment: Nega tive for influenza A and B. Performed By: #### L RFLU ####[place] [address] TSHon 07-02-2018 Thyrotropin Qn 1.96 uIU/mL Normal 0.34-4.82 [facility] Comment on above: Performed By: #### L TSH ####[address] [address] Urinalysis Routineon 019 Appearance Nom (U) 1+ (HAZY) Normal [facility] Comment on above: Performed By: #### L URIN ####[place] [address] Bacteria LM.HPF #/area (Urine sed) MANY Abnormal None [facility] Comment on above: Performed By: #### L URIN ####[place] [address] Bilirubin Urine Negative Normal Negative [facility] Comment on above: Performed By: #### L URIN ####[place] [address] Color Nom (U) DARK YELLOW Normal [facility] Comment on above: Performed By: #### L URIN ####[place] [address] Ep Cells Urine 13-20 Normal 0-5 [facility] Comment on above: Performed By: #### L URIN ####[place] [address] Glucose Ql (U) Negative Normal Negative [facility] Comment on above: Performed By: #### L URIN ####[place] [address] Hemoglobin,Urine Negative Normal Negative [facility] Comment on above: Performed By: #### L URIN ####[place] [address] Ketone Urine Negative Normal Negative [facility] Comment on above: Performed By: #### L URIN ####[place] [address] Leukocytes Esterase Negative Normal Negative [facility] Comment on above: Performed By: #### L URIN ####[place] [address] Nitrites Urine Negative Normal Negative [facility] Comment on above: Performed By: #### L URIN ####[place] [address] pH Test strip (U) 6.0 [pH] Normal 5.0-8.0 [facility] Comment on above: Performed By: #### L URIN ####[facility] [place], [place] [address] Protein Urine Negative Normal Negative [facility] Comment on above: Performed By: #### L URIN ####[facility] [place], [place] [address] RBC LM.HPF #/area (Urine sed) NONE Normal 0-3 [facility] Comment on above: Performed By: #### L URIN ####[address] [address] Specific [place], Ur 1.025 Normal 1.005-1.030 [facility] Comment on above: Performed By: #### L URIN ####[address] [address] Urobilinogen,Ur 0.2 EU/dL Normal 0.0-1.0 [facility] Comment on above: Performed By: #### L URIN ####[address] [address] WBC LM.HPF #/area (Urine sed) NONE Normal 0-5 [facility] Comment on above: Performed By: #### L URIN ####[address] [address] FOOT 3V AP/LAT/OBL LEFTon FOOT 3V AP/LAT/OBL LEFT Performed at [facility] APPROVED BY: Jonh Landry MD EXAM TITLE: THREE VIEWS OF THE LEFT FOOT DATE:01/30/2018 12:40 COMPARISON: None. CLINICAL INDICATION/HISTORY: Pain and swelling TECHNIQUE: AP, lateral and oblique images FINDINGS: No fracture or dislocation is seen. Osseous relationships are maintained on this nonweightbearing study. No suspicious osseous lesions. Joint spaces are preserved. IMPRESSION: Negative foot x-ray Normal [facility] CT ABDOMEN AND PELVIS W/O CO NTRASTon 01-23-2018 CT ABDOMEN AND PELVIS W/O CONTRAST Performed at [facility] APPROVED BY: Adry Cabrera MD Exam Title: [...] are no signs of appendicitis otherwise. Normal [facility] Chlam/GC-DNA Amplifiedon Chlam/GC-DNA Amplified [facility]lamydia trachomatis DNA NOT DETECTEDNeisseria gonorrhoeae DNA NOT DETECTEDReference range NOT DETECTEDMethod: Strand Displacement Amplification-BD ProbeTec AssayComment: A negative result does not precludeC.trachomatis or N. gonorrhoeae infection becauseresults are dependent on adequate specimen collection,absence of inhibitors, and sufficient DNA to be detected. Normal [facility] Comment on above: Performed By: #### C TGCA ####[address] [address] Comprehensive Panelon 2017 Albumin mass conc 4.0 g/dL Normal 3.4-5.0 [facility] Comment on above: Performed By: #### L P14 ####[address] [address] ALP enzyme act/vol 63 U/L Normal 46-116 [facility] Comment on above: Performed By: #### L P14 ####[facility] [place], [place] [address] ALT-SGPT Blood 41 U/L Normal 14-63 [facility] Comment on above: Performed By: #### L P14 ####[facility] [place], [place] [address] Anion gap 3 molar conc 12 mmol/L Normal 8-20 [facility] Comment on above: Performed By: #### L P14 ####[address] [address] AST-SGOT Blood 29 U/L Normal 15-37 [facility] Comment on above: Performed By: #### L P14 ####[place] [address] Bilirubin Ql (U) 0.6 mg/dL Normal 0.2-1.0 [facility] Comment on above: Performed By: #### L P14 ####[address] [address] Calcium mass conc 8.9 mg/dL Normal 8.5-10.1 [facility] Comment on above: Performed By: #### L P14 ####[address] [address] Chloride molar conc 93 mmol/L Low 98-107 [facility] Comment on above: Performed By: #### L P14 ####[address] [address] CO2 molar conc 24 mmol/L Normal 21-32 [facility] Comment on above: Performed By: #### L P14 ####[address] [address] Creatinine mass conc 0.69 mg/dL Normal 0.51-0.95 [facility] Comment on above: Performed By: #### L P14 ####[address] [address] Glucose mass conc 69 mg/dL Low 70-99 [facility] Comment on above: Performed By: #### L P14 ####[facility] [place] [address] Potassium molar conc 3.7 mmol/L Normal 3.5-5.1 [facility] Comment on above: Performed By: #### L P14 ####[place] [address] Protein mass conc 7.5 g/dL Normal 6.4-8.2 [facility] Comment on above: Performed By: #### L P14 ####[place] [address] Sodium molar conc 125 mmol/L Low 136-145 [facility] Comment on above: Performed By: #### L P14 ####[place] [address] Urea nitrogen mass conc (Bld) 7 mg/dL Normal 7-25 [facility] Comment on above: Performed By: #### L P14 ####[place] [address] Urea nitrogen/Creatinine mass ratio 10 mg/mg Normal 10-20 [facility] Comment on above: Performed By: #### L P14 ####[place] [address] Hemogram/Manual Diffon 01-23 Abs. Baso 0.17 thou/cmm High 0.00-0.08 [facility] Comment on above: Performed By: #### L MCBD ####[place] [address] Abs. Eosin 0.00 thou/cmm Normal 0.00-0.41 [facility] Comment on above: Performed By: #### L MCBD ####[place] [address] Abs. Lymph 2.22 thou/cmm Normal 1.50-3.65 [facility] Comment on above: Performed By: #### L MCBD ####[place] [address] Abs. Emery 2.05 thou/cmm High 0.20-1.00 [facility] Comment on above: Performed By: #### L MCBD ####[place] [address] Abs. Neut (ANC) 12.66 thou/cmm High 3.00-5.67 [facility] Comment on above: Performed By: #### L MCBD ####[place] [address] Basophil 1.0 % Normal [facility] Comment on above: Performed By: #### L MCBD ####[place] [address] Eosinophil 0.0 % Normal [facility] Comment on above: Performed By: #### L MCBD ####[place] [address] Lymphocyte 13.0 % Normal [facility] Comment on above: Performed By: #### L MCBD ####[place] [address] Monocyte 12.0 % Normal [facility] Comment on above: Performed By: #### L MCBD ####[place] [address] Platelet Estimate Normal Normal [facility] Comment on above: Performed By: #### L MCBD ####[place] [address] RBC Morphology Normal Normal [facility] Comment on above: Performed By: #### L MCBD ####[place] [address] Seg Neutrophil 74.0 % Normal [facility] Comment on above: Performed By: #### L MCBD ####[place] [address] Diff Type Manual Diff Normal [facility] Comment on above: Performed By: #### L MCBD ####[place] [address] Erythrocyte distribution width Auto Ratio (RBC) 11.6 % Normal 11.5-15.9 [facility] Comment on above: Performed By: #### L MCBD ####[facility] [place] [address] Hct 40.8 % Normal 37.0-47.0 [facility] Comment on above: Performed By: #### L MCBD ####[place] [address] Hgb 14.2 g/dL Normal 12.0-16.0 [facility] Comment on above: Performed By: #### L MCBD ####[place] [address] MCH 31.8 pg High 27.0-31.0 [facility] Comment on above: Performed By: #### L MCBD ####[place] [address] MCHC 34.8 % Normal 32.0-36.0 [facility] Comment on above: Performed By: #### L MCBD ####[place] [address] MCV 91.3 fl Normal 81.0-99.0 [facility] Comment on above: Performed By: #### L MCBD ####[place] [address] MPV 10.0 fl Normal 7.1-10.5 [facility] Comment on above: Performed By: #### L MCBD ####[place] [address] Platelet 263 thou/cmm Normal 150-400 [facility] Comment on above: Performed By: #### L MCBD ####[place] [address] RBC Test strip #/vol (U) 4.47 mil/cmm Normal 4.20-5.40 [facility] Comment on above: Performed By: #### L MCBD ####[place] [address] WBC 17.1 thou/cmm High 4.8-10.8 [facility] Comment on above: Performed By: #### L MCBD ####[address] [place] [address] MDRD eGFRon 01-23-2018 GFR/1.73 sq M predicted among non-blacks MDRD vol rate/area (S/P/Bld) mL/min/{1.73_m2} Normal >60mL/min/1.73m 2 [facility] Comment on above: Result Comment: If t he patient is , multiply the result by 1.210. Performed By: #### L GFR ####[address] [address] Macroscopic Urinalysison Appearance Nom (U) CLEAR Normal [facility] Comment on above: Performed By: #### L MACU ####[place] [address] Bilirubin Urine Negative Normal Negative [facility] Comment on above: Performed By: #### L MACU ####[place] [address] Color Nom (U) STRAW Normal [facility] Comment on above: Performed By: #### L MACU ####[address] [address] Glucose Ql (U) Negative Normal Negative [facility] Comment on above: Performed By: #### L MACU ####[place] [address] Hemoglobin,Urine Negative Normal Negative [facility] Comment on above: Performed By: #### L MACU ####[address] [address] Ketone Urine Negative Normal Negative [facility] Comment on above: Performed By: #### L MACU ####[place] [address] Leukocytes Esterase Negative Normal Negative [facility] Comment on above: Performed By: #### L MACU ####[place] [address] Nitrites Urine Negative Normal Negative [facility] Comment on above: Performed By: #### L MACU ####[place] [address] pH Test strip (U) 6.5 [pH] Normal 5.0-8.0 [facility] Comment on above: Performed By: #### L MACU ####[facility] [place], [place] [address] Protein Urine Negative Normal Negative [facility] Comment on above: Performed By: #### L MACU ####[facility] [place] [address] Specific [place], Ur <=1.005 Normal 1.005-1.030 [facility] Comment on above: Performed By: #### L MACU ####[facility] [place] [address] Urobilinogen,Ur 0.2 EU/dL Normal 0.0-1.0 [facility] Comment on above: Performed By: #### L MACU ####[place] [address] US PELVIS NON-OB COMPLETEon 01-23-2018 US PELVIS NON-OB COMPLETE Performed at [facility] APPROVED BY: Adry Cabrera MD EXAMINATION: TRANSVAGINAL [...] uterine fibroids and small uterine cyst. Normal [facility] US TRANSVAGINALon 01-23-2018 US TRANSVAGINAL Performed at [facility] APPROVED BY: Adry Cabrera MD EXAMINATION: TRANSVAGINAL [...] uterine fibroids and small uterine cyst. Normal [facility] Vital Signs Date Time Vital Sign Value Performing Clinician Halina lyles 12-03-2024 10:53-0400 Diastolic blood pressure 65 mm[Hg] Sam Khan APRN.CNP Work Phone: [facility] 12-03-2024 10:53-0400 Heart rate 79 /min Sam Khan APRN.MARKING MACHINE OPERATOR Work Phone: [facility] 12-03-2024 10:53-0400 SaO2% (BldA) [Mass fraction] 98 % Sam Khan APRN.MARKING MACHINE OPERATOR Work Phone: [facility] 12-03-2024 10:53-0400 Systolic blood pressure 111 mm[Hg] Sam Khan APRN.CNP Work Phone: [facility] 11-28-2024 11:12-0400 Body mass index (BMI) [Ratio] 20.73 kg/m2 Sam Khan APRN.MARKING MACHINE OPERATOR Work Phone: [facility] 11-28-2024 11:12-0400 Body weight 56.5 kg Sam Erin STAIN MAKER.MARKING MACHINE OPERATOR Work Phone: [facility] 11-28-2024 11:12-0400 Diastolic blood pressure 74 mm[Hg] Sam Erin STAIN MAKER.MARKING MACHINE OPERATOR Work Phone: [facility] 11-28-2024 11:12-0400 Heart rate 117 /min Sam Erin STAIN MAKER.MARKING MACHINE OPERATOR Work Phone: [facility] 11-28-2024 11:12-0400 SaO2% (BldA) [Mass fraction] 98 % Sam Erin STAIN MAKER.MARKING MACHINE OPERATOR Work Phone: [facility] 11-28-2024 11:12-0400 Systolic blood pressure 110 mm[Hg] Sam Erin STAIN MAKER.MARKING MACHINE OPERATOR Work Phone: [facility] 11-22-2024 09:22-0400 Body mass index (BMI) [Ratio] 21.06 kg/m2 Karen Mckee STAIN MAKER.ADVERTISING SALES AGENT Work Phone: [facility] 11-22-2024 09:22-0400 Body weight 57.4 kg Karen Mckee STAIN MAKER.ADVERTISING SALES AGENT Work Phone: [facility] 11-22-2024 09:22-0400 Diastolic blood pressure 73 mm[Hg] Karen Mckee STAIN MAKER.ADVERTISING SALES AGENT Work Phone: [facility] 11-22-2024 09:22-0400 Heart rate 92 /min Karen Mckee STAIN MAKER.ADVERTISING SALES AGENT Work Phone: [facility] 11-22-2024 09:22-0400 Respiratory rate 16 /min Karen Mckee STAIN MAKER.ADVERTISING SALES AGENT Work Phone: [facility] 11-22-2024 09:22-0400 Systolic blood pressure 104 mm[Hg] Karen Mckee STAIN MAKER.ADVERTISING SALES AGENT Work Phone: [facility] 11-02-2024 09:50-0400 Body mass index (BMI) [Ratio] 21.31 kg/m2 Sam Erin STAIN MAKER.MARKING MACHINE OPERATOR Work Phone: [facility] 11-02-2024 09:50-0400 Body weight 58.1 kg Sam Erin STAIN MAKER.MARKING MACHINE OPERATOR Work Phone: [facility] 11-02-2024 09:50-0400 Diastolic blood pressure 79 mm[Hg] Sam Erin STAIN MAKER.MARKING MACHINE OPERATOR Work Phone: [facility] 11-02-2024 09:50-0400 Heart rate 102 /min Sam Erin STAIN MAKER.MARKING MACHINE OPERATOR Work Phone: [facility] 11-02-2024 09:50-0400 SaO2% (BldA) [Mass fraction] 97 % Sam Erin STAIN MAKER.MARKING MACHINE OPERATOR Work Phone: [facility] 11-02-2024 09:50-0400 Systolic blood pressure 112 mm[Hg] Sam Erin STAIN MAKER.MARKING MACHINE OPERATOR Work Phone: [facility] 09-28-2024 09:05-0400 Body height 165.1 cm Pacc 1 Work Phone: [facility] 09-28-2024 09:05-0400 Body mass index (BMI) [Ratio] 21.13 kg/m2 Pacc 1 Work Phone: [facility] 09-28-2024 09:05-0400 Body temperature 97.11 [degF] Pacc 1 Work Phone: [facility] 09-28-2024 09:05-0400 Body weight 57.61 kg Pacc 1 Work Phone: [facility] 09-28-2024 09:05-0400 Diastolic blood pressure 78 mm[Hg] Pacc 1 Work Phone: [facility] 09-28-2024 09:05-0400 Heart rate 85 /min Pacc 1 Work Phone: [facility] 09-28-2024 09:05-0400 Respiratory rate 14 /min Pacc 1 Work Phone: [facility] 04-04-2025 09:05-0400 SaO2% (BldA) [Mass fraction] 98 % [facility] 1 Work Phone: [facility] 09-28-2024 09:05-0400 Systolic blood pressure 102 mm[Hg] [facility] 1 Work Phone: [facility] 09-21-2024 08:53-0400 Body mass index (BMI) [Ratio] 20.1 kg/m2 Sam Erin STAIN MAKER.MARKING MACHINE OPERATOR Work Phone: [facility] 09-21-2024 08:53-0400 Body weight 56.5 kg Sam Erin STAIN MAKER.MARKING MACHINE OPERATOR Work Phone: [facility] 09-21-2024 08:53-0400 Diastolic blood pressure 70 mm[Hg] Sam Erin STAIN MAKER.MARKING MACHINE OPERATOR Work Phone: [facility] 09-21-2024 08:53-0400 Heart rate 98 /min Sam Erin STAIN MAKER.MARKING MACHINE OPERATOR Work Phone: [facility] 09-21-2024 08:53-0400 SaO2% (BldA) [Mass fraction] 98 % Sam Erin STAIN MAKER.MARKING MACHINE OPERATOR Work Phone: [facility] 09-21-2024 08:53-0400 Systolic blood pressure 110 mm[Hg] Sam Erin STAIN MAKER.MARKING MACHINE OPERATOR Work Phone: [facility] 07-31-2024 10:37-0500 Body mass index (BMI) [Ratio] 19.93 kg/m2 Maile Norman MD Work Phone: [facility] 07-31-2024 10:37-0500 Body weight 56 kg Maile Norman MD Work Phone: [facility] 07-31-2024 10:37-0500 Diastolic blood pressure 76 mm[Hg] Maile Norman MD Work Phone: [facility] 07-31-2024 10:37-0500 Heart rate 88 /min Maile Norman MD Work Phone: [facility] 07-31-2024 10:37-0500 SaO2% (BldA) [Mass fraction] 98 % Maile Norman MD Work Phone: [facility] 07-31-2024 10:37-0500 Systolic blood pressure 126 mm[Hg] Maile Norman MD Work Phone: [facility] 07-13-2024 10:39-0500 Body mass index (BMI) [Ratio] 21.35 kg/m2 Karen Mckee STAIN MAKER.ADVERTISING SALES AGENT Work Phone: [facility] 07-13-2024 10:39-0500 Body weight 60 kg Karen Mckee STAIN MAKER.ADVERTISING SALES AGENT Work Phone: [facility] 07-13-2024 10:39-0500 Diastolic blood pressure 85 mm[Hg] Karen Mckee STAIN MAKER.ADVERTISING SALES AGENT Work Phone: [facility] 07-13-2024 10:39-0500 Heart rate 84 /min Karen Mckee STAIN MAKER.ADVERTISING SALES AGENT Work Phone: [facility] 07-13-2024 10:39-0500 Respiratory rate 16 /min Karen Mckee STAIN MAKER.ADVERTISING SALES AGENT Work Phone: [facility] 07-13-2024 10:39-0500 Systolic blood pressure 122 mm[Hg] Karen Mckee STAIN MAKER.ADVERTISING SALES AGENT Work Phone: [facility] 07-11-2024 09:37-0500 Body height 167.6 cm Maile Norman MD Work Phone: [facility] 07-11-2024 09:37-0500 Body mass index (BMI) [Ratio] 20.32 kg/m2 Maile Norman MD Work Phone: [facility] 07-11-2024 09:37-0500 Body weight 57.1 kg Maile Norman MD Work Phone: [facility] 07-11-2024 09:37-0500 Diastolic blood pressure 68 mm[Hg] Maile Norman MD Work Phone: [facility] 07-11-2024 09:37-0500 Heart rate 90 /min Maile Norman MD Work Phone: [facility] 07-11-2024 09:37-0500 SaO2% (BldA) [Mass fraction] 98 % Maile Norman MD Work Phone: [facility] 07-11-2024 09:37-0500 Systolic blood pressure 90 mm[Hg] Maile Norman MD Work Phone: [facility] 07-09-2024 07:08-0500 Body height 165.1 cm Cecile Quincy STAIN MAKER.MARKING MACHINE OPERATOR Work Phone: [facility] 07-09-2024 07:08-0500 Body mass index (BMI) [Ratio] 20.97 kg/m2 Cecile Quincy STAIN MAKER.MARKING MACHINE OPERATOR Work Phone: [facility] 07-09-2024 07:08-0500 Body weight 57.15 kg Cecile Quincy STAIN MAKER.MARKING MACHINE OPERATOR Work Phone: [facility] 07-09-2024 07:08-0500 Diastolic blood pressure 62 mm[Hg] Cecile Quincy STAIN MAKER.MARKING MACHINE OPERATOR Work Phone: [facility] 07-09-2024 07:08-0500 Systolic blood pressure 110 mm[Hg] Cecile Quincy STAIN MAKER.MARKING MACHINE OPERATOR Work Phone: [facility] 05-23-2024 07:28-0500 Body mass index (BMI) [Ratio] 20.47 kg/m2 Galo Pendlestefan STAIN MAKER.MARKING MACHINE OPERATOR Work Phone: [facility] 05-23-2024 07:28-0500 Body temperature 97.59 [degF] Galo Viniciuslestefan STAIN MAKER.MARKING MACHINE OPERATOR Work Phone: [facility] 05-23-2024 07:28-0500 Body weight 55.8 kg Galo Bernal STAIN MAKER.MARKING MACHINE OPERATOR Work Phone: [facility] 05-23-2024 07:28-0500 Diastolic blood pressure 82 mm[Hg] Galo Pendlebury STAIN MAKER.MARKING MACHINE OPERATOR Work Phone: [facility] 05-23-2024 07:28-0500 Heart rate 96 /min Galo Bernal STAIN MAKER.MARKING MACHINE OPERATOR Work Phone: [facility] 05-23-2024 07:28-0500 Respiratory rate 18 /min Galo Bernal STAIN MAKER.MARKING MACHINE OPERATOR Work Phone: [facility] 05-23-2024 07:28-0500 SaO2% (BldA) [Mass fraction] 96 % Galo Bernal STAIN MAKER.MARKING MACHINE OPERATOR Work Phone: [facility] 05-23-2024 07:28-0500 Systolic blood pressure 122 mm[Hg] Galo Bernal STAIN MAKER.MARKING MACHINE OPERATOR Work Phone: [facility] 05-15-2024 12:59-0500 Body mass index (BMI) [Ratio] 20.58 kg/m2 Anny SchneiderCuong STAIN MAKER.MARKING MACHINE OPERATOR Work Phone: [facility] 05-15-2024 12:59-0500 Body temperature 98.2 [degF] Anny SchneiderCuong STAIN MAKER.MARKING MACHINE OPERATOR Work Phone: [facility] 05-15-2024 12:59-0500 Body weight 56.1 kg Anny SchneiderCuong STAIN MAKER.MARKING MACHINE OPERATOR Work Phone: [facility] 05-15-2024 12:59-0500 Diastolic blood pressure 84 mm[Hg] Anny SchneiderCuong STAIN MAKER.MARKING MACHINE OPERATOR Work Phone: [facility] 05-15-2024 12:59-0500 Heart rate 88 /min Anny EspinozaCuong STAIN MAKER.MARKING MACHINE OPERATOR Work Phone: [facility] 05-15-2024 12:59-0500 Respiratory rate 18 /min Anny Cuong STAIN MAKER.MARKING MACHINE OPERATOR Work Phone: [facility] 05-15-2024 12:59-0500 Systolic blood pressure 122 mm[Hg] Anny Cuong STAIN MAKER.MARKING MACHINE OPERATOR Work Phone: [facility] 05-11-2024 08:43-0500 Body mass index (BMI) [Ratio] 20.4 kg/m2 Yodit Saxena STAIN MAKER.MARKING MACHINE OPERATOR Work Phone: [facility] 05-11-2024 08:43-0500 Body temperature 97.59 [degF] Yodit Saxena STAIN MAKER.MARKING MACHINE OPERATOR Work Phone: [facility] 05-11-2024 08:43-0500 Body weight 55.6 kg Yodit Saxena STAIN MAKER.MARKING MACHINE OPERATOR Work Phone: [facility] 05-11-2024 08:43-0500 Diastolic blood pressure 88 mm[Hg] Yodit Saxena STAIN MAKER.MARKING MACHINE OPERATOR Work Phone: [facility] 05-11-2024 08:43-0500 Heart rate 104 /min Yodit Saxena STAIN MAKER.MARKING MACHINE OPERATOR Work Phone: [facility] 05-11-2024 08:43-0500 Respiratory rate 20 /min Yodit Saxena STAIN MAKER.MARKING MACHINE OPERATOR Work Phone: [facility] 05-11-2024 08:43-0500 SaO2% (BldA) [Mass fraction] 98 % Yodit Saxena STAIN MAKER.MARKING MACHINE OPERATOR Work Phone: [facility] 05-11-2024 08:43-0500 Systolic blood pressure 120 mm[Hg] Yodit Saxena STAIN MAKER.MARKING MACHINE OPERATOR Work Phone: [facility] 05-10-2024 12:02-0500 Body mass index (BMI) [Ratio] 20.14 kg/m2 Karen Mckee STAIN MAKER.ADVERTISING SALES AGENT Work Phone: [facility] 05-10-2024 12:02-0500 Body weight 54.9 kg Karen Mckee STAIN MAKER.ADVERTISING SALES AGENT Work Phone: [facility] 05-10-2024 12:02-0500 Diastolic blood pressure 73 mm[Hg] Karen Mckee STAIN MAKER.ADVERTISING SALES AGENT Work Phone: [facility] 05-10-2024 12:02-0500 Heart rate 108 /min Karen Mckee STAIN MAKER.ADVERTISING SALES AGENT Work Phone: [facility] 05-10-2024 12:02-0500 Respiratory rate 16 /min Karen Mckee STAIN MAKER.ADVERTISING SALES AGENT Work Phone: [facility] 05-10-2024 12:02-0500 Systolic blood pressure 125 mm[Hg] Karen Mckee STAIN MAKER.ADVERTISING SALES AGENT Work Phone: [facility] 04-29-2024 20:50-0500 Body temperature 96.98 [degF] JUAN MIGUEL MANLEY MD [facility] 04-29-2024 20:50-0500 Body weight 56.4 kg JUAN MIGUEL MANLEY MD [facility] 04-29-2024 20:50-0500 Diastolic Blood Pressure Non-Invasive 85 mm[Hg] JUAN MIGUEL MANLEY MD [facility] 04-29-2024 20:50-0500 Heart rate 80 /min JUAN MIGUEL MANLEY MD [facility] 04-29-2024 20:50-0500 Respiratory rate 16 /min JUAN MIGUEL MANLEY MD [facility] 04-29-2024 20:50-0500 Systolic Blood Pressure Non-Invasive 126 mm[Hg] JUAN MIGUEL MANLEY MD [facility] 04-25-2024 13:04-0400 Body mass index (BMI) [Ratio] 20.58 kg/m2 Sam Verduzcor STAIN MAKER.MARKING MACHINE OPERATOR Work Phone: [facility] 04-25-2024 13:04-0400 Body weight 56.1 kg Sam Verduzcor STAIN MAKER.MARKING MACHINE OPERATOR Work Phone: [facility] 04-25-2024 13:04-0400 Diastolic blood pressure 88 mm[Hg] Sam Verduzcor STAIN MAKER.MARKING MACHINE OPERATOR Work Phone: [facility] 04-25-2024 13:04-0400 Heart rate 87 /min Sam Erin STAIN MAKER.MARKING MACHINE OPERATOR Work Phone: [facility] 04-25-2024 13:04-0400 Respiratory rate 16 /min Sam Erin STAIN MAKER.MARKING MACHINE OPERATOR Work Phone: [facility] 04-25-2024 13:04-0400 SaO2% (BldA) [Mass fraction] 99 % Sam Erin STAIN MAKER.MARKING MACHINE OPERATOR Work Phone: [facility] 04-25-2024 13:04-0400 Systolic blood pressure 144 mm[Hg] Sam Erin STAIN MAKER.MARKING MACHINE OPERATOR Work Phone: [facility] 04-13-2024 12:39-0400 Body mass index (BMI) [Ratio] 20.18 kg/m2 Pennie Praisler-Wood STAIN MAKER.MARKING MACHINE OPERATOR Work Phone: [facility] 04-13-2024 12:39-0400 Body temperature 97 [degF] Pennie Praisler-Wood STAIN MAKER.MARKING MACHINE OPERATOR Work Phone: [facility] 04-13-2024 12:39-0400 Body weight 55 kg Pennie Praisler-Wood STAIN MAKER.MARKING MACHINE OPERATOR Work Phone: [facility] 04-13-2024 12:39-0400 Diastolic blood pressure 78 mm[Hg] Pennie Praisler-Wood STAIN MAKER.MARKING MACHINE OPERATOR Work Phone: [facility] 04-13-2024 12:39-0400 Heart rate 78 /min Pennie Praisler-Wood STAIN MAKER.MARKING MACHINE OPERATOR Work Phone: [facility] 04-13-2024 12:39-0400 Respiratory rate 16 /min Pennie Praisler-Wood STAIN MAKER.MARKING MACHINE OPERATOR Work Phone: [facility] 04-13-2024 12:39-0400 SaO2% (BldA) [Mass fraction] 100 % Pennie Praisler-Wood STAIN MAKER.MARKING MACHINE OPERATOR Work Phone: [facility] 04-13-2024 12:39-0400 Systolic blood pressure 112 mm[Hg] Pennie Praisler-Wood STAIN MAKER.MARKING MACHINE OPERATOR Work Phone: [facility] 03-28-2024 15:49-0400 Body mass index (BMI) [Ratio] 20.84 kg/m2 Maile Norman MD Work Phone: [facility] 03-28-2024 15:49-0400 Body temperature 97.3 [degF] Maile Norman MD Work Phone: [facility] 03-28-2024 15:49-0400 Body weight 56.8 kg Maile Norman MD Work Phone: [facility] 03-28-2024 15:49-0400 Diastolic blood pressure 87 mm[Hg] Maile Norman MD Work Phone: [facility] 03-28-2024 15:49-0400 Heart rate 80 /min Maile Norman MD Work Phone: [facility] 03-28-2024 15:49-0400 Respiratory rate 16 /min Miale Norman MD Work Phone: [facility] 03-28-2024 15:49-0400 SaO2% (BldA) [Mass fraction] 100 % Maile Norman MD Work Phone: [facility] 03-28-2024 15:49-0400 Systolic blood pressure 133 mm[Hg] Maile Norman MD Work Phone: [facility] 02-28-2024 08:35-0400 Body mass index (BMI) [Ratio] 20.21 kg/m2 Sam Erin STAIN MAKER.MARKING MACHINE OPERATOR Work Phone: [facility] 02-28-2024 08:35-0400 Body temperature 97 [degF] Sam Erin STAIN MAKER.MARKING MACHINE OPERATOR Work Phone: [facility] 02-28-2024 08:35-0400 Body weight 55.1 kg Sam Erin STAIN MAKER.MARKING MACHINE OPERATOR Work Phone: [facility] 02-28-2024 08:35-0400 Diastolic blood pressure 80 mm[Hg] Sam Erin STAIN MAKER.MARKING MACHINE OPERATOR Work Phone: [facility] 02-28-2024 08:35-0400 Heart rate 78 /min Sam Erin STAIN MAKER.MARKING MACHINE OPERATOR Work Phone: [facility] 02-28-2024 08:35-0400 Respiratory rate 20 /min Sam Erin STAIN MAKER.MARKING MACHINE OPERATOR Work Phone: [facility] 02-28-2024 08:35-0400 SaO2% (BldA) [Mass fraction] 97 % Sam Erin STAIN MAKER.MARKING MACHINE OPERATOR Work Phone: [facility] 02-28-2024 08:35-0400 Systolic blood pressure 118 mm[Hg] Sam Erin STAIN MAKER.MARKING MACHINE OPERATOR Work Phone: [facility] 02-16-2024 18:49-0400 Body mass index (BMI) [Ratio] 20.76 kg/m2 Krislyn Aberegg PA Work Phone: [facility] 02-16-2024 18:49-0400 Body temperature 98.2 [degF] Krislyn Aberegg PA Work Phone: [facility] 02-16-2024 18:49-0400 Body weight 56.6 kg Krislyn Aberegg PA Work Phone: [facility] 02-16-2024 18:49-0400 Diastolic blood pressure 73 mm[Hg] Krislyn Aberegg PA Work Phone: [facility] 02-16-2024 18:49-0400 Heart rate 85 /min Krislyn Aberegg PA Work Phone: [facility] 02-16-2024 18:49-0400 Respiratory rate 18 /min Krislyn Aberegg PA Work Phone: [facility] 02-16-2024 18:49-0400 SaO2% (BldA) [Mass fraction] 100 % Krislyn Aberegg PA Work Phone: [facility] 02-16-2024 18:49-0400 Systolic blood pressure 113 mm[Hg] Krislyn Aberegg PA Work Phone: [facility] 02-10-2024 17:05-0400 Diastolic Blood Pressure Non-Invasive 87 mm[Hg] JUAN MIGUEL MANLEY MD [facility] 02-10-2024 17:05-0400 Heart rate 95 /min JUAN MIGUEL MANLEY MD [facility] 02-10-2024 17:05-0400 Respiratory rate 16 /min JUAN MIGUEL MANLEY MD [facility] 02-10-2024 17:05-0400 Systolic Blood Pressure Non-Invasive 123 mm[Hg] JUAN MIGUEL MANLEY MD [facility] 02-10-2024 15:40-0400 Body temperature 97.16 [degF] JUAN MIGUEL MANLEY MD [facility] 02-10-2024 15:40-0400 Body weight 54.3 kg JUAN MIGUEL MANLEY MD [facility] 02-10-2024 15:40-0400 Diastolic Blood Pressure Non-Invasive 60 mm[Hg] JUAN MIGUEL MANLEY MD [facility] 02-10-2024 15:40-0400 Heart rate 111 /min JUAN MIGUEL MANLEY MD [facility] 02-10-2024 15:40-0400 Respiratory rate 18 /min JUAN MIGUEL MANLEY MD [facility] 02-10-2024 15:40-0400 Systolic Blood Pressure Non-Invasive 98 mm[Hg] JUAN MIGUEL MANLEY MD [facility] 02-07-2024 15:03-0400 Body height 165.1 cm Louis Valencia MD Work Phone: [facility] 02-07-2024 15:03-0400 Body mass index (BMI) [Ratio] 20.8 kg/m2 Louis Valencia MD Work Phone: [facility] 02-07-2024 15:03-0400 Body weight 56.7 kg Louis Valencia MD Work Phone: [facility] 02-07-2024 15:03-0400 Respiratory rate 16 /min Louis Valencia MD Work Phone: [facility] 01-25-2024 14:44-0400 Body mass index (BMI) [Ratio] 20.8 kg/m2 Sam Erin STAIN MAKER.MARKING MACHINE OPERATOR Work Phone: [facility] 01-25-2024 14:44-0400 Body weight 56.7 kg Sam Erin STAIN MAKER.MARKING MACHINE OPERATOR Work Phone: [facility] 01-25-2024 14:44-0400 Diastolic blood pressure 66 mm[Hg] Sam Erin STAIN MAKER.MARKING MACHINE OPERATOR Work Phone: [facility] 01-25-2024 14:44-0400 Heart rate 96 /min Sam Erin STAIN MAKER.MARKING MACHINE OPERATOR Work Phone: [facility] 01-25-2024 14:44-0400 Respiratory rate 16 /min Sam Erin STAIN MAKER.MARKING MACHINE OPERATOR Work Phone: [facility] 01-25-2024 14:44-0400 Systolic blood pressure 102 mm[Hg] Sam Erin STAIN MAKER.MARKING MACHINE OPERATOR Work Phone: [facility] 01-11-2024 13:33-0400 Body mass index (BMI) [Ratio] 20.7 kg/m2 Sam Erin STAIN MAKER.MARKING MACHINE OPERATOR Work Phone: [facility] 01-11-2024 13:33-0400 Body weight 56.43 kg Sam Erin STAIN MAKER.MARKING MACHINE OPERATOR Work Phone: [facility] 01-11-2024 13:33-0400 Diastolic blood pressure 62 mm[Hg] Sam Erin STAIN MAKER.MARKING MACHINE OPERATOR Work Phone: [facility] 01-11-2024 13:33-0400 Heart rate 86 /min Sam Erin STAIN MAKER.MARKING MACHINE OPERATOR Work Phone: [facility] 01-11-2024 13:33-0400 Respiratory rate 18 /min Sam Erin STAIN MAKER.MARKING MACHINE OPERATOR Work Phone: [facility] 01-11-2024 13:33-0400 SaO2% (BldA) [Mass fraction] 94 % Sam Erin STAIN MAKER.MARKING MACHINE OPERATOR Work Phone: [facility] 01-11-2024 13:33-0400 Systolic blood pressure 96 mm[Hg] Sam Erin STAIN MAKER.MARKING MACHINE OPERATOR Work Phone: [facility] 12-20-2023 07:50-0400 Body mass index (BMI) [Ratio] 19.8 kg/m2 Sam Erin STAIN MAKER.MARKING MACHINE OPERATOR Work Phone: [facility] 12-20-2023 07:50-0400 Body weight 53.98 kg Sam Erin STAIN MAKER.MARKING MACHINE OPERATOR Work Phone: [facility] 12-20-2023 07:50-0400 Diastolic blood pressure 80 mm[Hg] Sam Erin STAIN MAKER.MARKING MACHINE OPERATOR Work Phone: [facility] 12-20-2023 07:50-0400 Heart rate 114 /min Sam Erin STAIN MAKER.MARKING MACHINE OPERATOR Work Phone: [facility] 12-20-2023 07:50-0400 SaO2% (BldA) [Mass fraction] 97 % Sam Erin STAIN MAKER.MARKING MACHINE OPERATOR Work Phone: [facility] 12-20-2023 07:50-0400 Systolic blood pressure 130 mm[Hg] Sam Erin STAIN MAKER.MARKING MACHINE OPERATOR Work Phone: [facility] 11-11-2023 10:06-0400 Body mass index (BMI) [Ratio] 20.47 kg/m2 Sam Erin STAIN MAKER.MARKING MACHINE OPERATOR Work Phone: [facility] 11-11-2023 10:06-0400 Body weight 55.79 kg Sam Erin STAIN MAKER.MARKING MACHINE OPERATOR Work Phone: [facility] 11-11-2023 10:06-0400 Diastolic blood pressure 82 mm[Hg] Sam Erin STAIN MAKER.MARKING MACHINE OPERATOR Work Phone: [facility] 11-11-2023 10:06-0400 Heart rate 85 /min Sam Erin STAIN MAKER.MARKING MACHINE OPERATOR Work Phone: [facility] 11-11-2023 10:06-0400 SaO2% (BldA) [Mass fraction] 98 % Sam Erin STAIN MAKER.MARKING MACHINE OPERATOR Work Phone: [facility] 11-11-2023 10:06-0400 Systolic blood pressure 110 mm[Hg] Sma Erin STAIN MAKER.MARKING MACHINE OPERATOR Work Phone: [facility] 10-14-2023 11:26-0400 Body height 165.1 cm Sam Erin STAIN MAKER.MARKING MACHINE OPERATOR Work Phone: [facility] 10-14-2023 11:26-0400 Body weight 55.79 kg Sam Erin STAIN MAKER.MARKING MACHINE OPERATOR Work Phone: [facility] 10-14-2023 11:26-0400 Diastolic blood pressure 70 mm[Hg] Sam Erin STAIN MAKER.MARKING MACHINE OPERATOR Work Phone: [facility] 10-14-2023 11:26-0400 Heart rate 107 /min Sam Erin STAIN MAKER.MARKING MACHINE OPERATOR Work Phone: [facility] 10-14-2023 11:26-0400 Respiratory rate 12 /min Sam Erin STAIN MAKER.MARKING MACHINE OPERATOR Work Phone: [facility] 10-14-2023 11:26-0400 SaO2% (BldA) [Mass fraction] 97 % Sam Erin STAIN MAKER.MARKING MACHINE OPERATOR Work Phone: [facility] 10-14-2023 11:26-0400 Systolic blood pressure 132 mm[Hg] Sam Erin STAIN MAKER.MARKING MACHINE OPERATOR Work Phone: [facility] 10-11-2023 10:16-0400 Body height 165.1 cm Louis Valencia MD Work Phone: [facility] 10-11-2023 10:16-0400 Body weight 55.79 kg Louis Valencia MD Work Phone: [facility] 10-11-2023 10:16-0400 Respiratory rate 20 /min Louis Valencia MD Work Phone: [facility] 09-27-2023 13:15-0400 Body temperature 96.3 [degF] Sam Erin STAIN MAKER.MARKING MACHINE OPERATOR Work Phone: [facility] 09-27-2023 13:15-0400 Body weight 55.79 kg Sam Erin STAIN MAKER.MARKING MACHINE OPERATOR Work Phone: [facility] 09-27-2023 13:15-0400 Diastolic blood pressure 60 mm[Hg] Sam Erin STAIN MAKER.MARKING MACHINE OPERATOR Work Phone: [facility] 09-27-2023 13:15-0400 Heart rate 76 /min Sam Erin STAIN MAKER.MARKING MACHINE OPERATOR Work Phone: [facility] 09-27-2023 13:15-0400 Respiratory rate 20 /min Sam Erin STAIN MAKER.MARKING MACHINE OPERATOR Work Phone: [facility] 09-27-2023 13:15-0400 Systolic blood pressure 114 mm[Hg] Sam Erin STAIN MAKER.MARKING MACHINE OPERATOR Work Phone: [facility] 09-26-2023 22:13-0400 Diastolic Blood Pressure Non-Invasive 76 mm[Hg] DR TU DE ANDA MD [facility] 09-26-2023 22:13-0400 Heart rate 63 /min DR TU DE ANDA MD [facility] 09-26-2023 22:13-0400 Respiratory rate 16 /min DR TU DE ANDA MD [facility] 09-26-2023 22:13-0400 Systolic Blood Pressure Non-Invasive 133 mm[Hg] DR TU DE ANDA MD [facility] 09-26-2023 19:34-0400 Body height 175.[address] TU DE ANDA MD [facility] 09-26-2023 19:34-0400 Body temperature 98.42 [degF] DR TU DE ANDA MD [facility] 09-26-2023 19:34-0400 Body weight 56.[address] TU DE ANDA MD [facility] 09-26-2023 19:34-0400 Diastolic Blood Pressure Non-Invasive 68 mm[Hg] DR TU DE ANDA MD [facility] 09-26-2023 19:34-0400 Heart rate 104 /min DR TU DE ANDA MD [facility] 09-26-2023 19:34-0400 Respiratory rate 18 /min DR TU DE ANDA MD [facility] 09-26-2023 19:34-0400 Systolic Blood Pressure Non-Invasive 143 mm[Hg] DR TU DE ANDA MD [facility] 09-13-2023 13:31-0400 Body height 165.1 cm Louis Valencia MD Work Phone: [facility] 09-13-2023 13:31-0400 Body weight 57.15 kg Louis Valencia MD Work Phone: [facility] 09-13-2023 13:31-0400 Respiratory rate 18 /min Louis Valencia MD Work Phone: [facility] 09-09-2023 15:05-0400 Body weight 57.15 kg Sam Khan APRN.CNP Work Phone: [facility] 09-09-2023 15:05-0400 Diastolic blood pressure 78 mm[Hg] Sam Erin STAIN MAKER.MARKING MACHINE OPERATOR Work Phone: [facility] 09-09-2023 15:05-0400 Heart rate 78 /min Sam Erin STAIN MAKER.MARKING MACHINE OPERATOR Work Phone: [facility] 09-09-2023 15:05-0400 Respiratory rate 16 /min Sam Erin STAIN MAKER.MARKING MACHINE OPERATOR Work Phone: [facility] 09-09-2023 15:05-0400 Systolic blood pressure 124 mm[Hg] Sam Erin STAIN MAKER.MARKING MACHINE OPERATOR Work Phone: [facility] 08-18-2023 09:17-0500 Body height 165.1 cm Pst 1 [facility] 08-18-2023 09:17-0500 Body temperature 98.6 [degF] Pst 1 [facility] 08-18-2023 09:17-0500 Body weight 55.34 kg Pst 1 [facility] 08-18-2023 09:17-0500 Diastolic blood pressure 60 mm[Hg] Pst 1 [facility] 08-18-2023 09:17-0500 Heart rate 92 /min Pst 1 [facility] 08-18-2023 09:17-0500 Respiratory rate 16 /min Pst 1 [facility] 08-18-2023 09:17-0500 SaO2% (BldA) [Mass fraction] 98 % Pst 1 [facility] 08-18-2023 09:17-0500 Systolic blood pressure 124 mm[Hg] Pst 1 [facility] 08-11-2023 08:06-0500 Body temperature 99.5 [degF] Pennie Adams-Maximilian STAIN MAKER.MARKING MACHINE OPERATOR Work Phone: [facility] 08-11-2023 08:06-0500 Body weight 56.25 kg Pennie Adams-Maximilian STAIN MAKER.MARKING MACHINE OPERATOR Work Phone: [facility] 08-11-2023 08:06-0500 Diastolic blood pressure 83 mm[Hg] Pennie Praisler-Wood STAIN MAKER.MARKING MACHINE OPERATOR Work Phone: [facility] 08-11-2023 08:06-0500 Heart rate 107 /min Pennie Praisler-Wood STAIN MAKER.MARKING MACHINE OPERATOR Work Phone: [facility] 08-11-2023 08:06-0500 Respiratory rate 22 /min Pennie Praisler-Wood STAIN MAKER.MARKING MACHINE OPERATOR Work Phone: [facility] 08-11-2023 08:06-0500 SaO2% (BldA) [Mass fraction] 97 % Pennie Praisler-Wood STAIN MAKER.MARKING MACHINE OPERATOR Work Phone: [facility] 08-11-2023 08:06-0500 Systolic blood pressure 127 mm[Hg] Pennie Praisler-Wood STAIN MAKER.MARKING MACHINE OPERATOR Work Phone: [facility] 08-09-2023 12:57-0500 Body height 165.1 cm Louis Valencia MD Work Phone: [facility] 08-09-2023 12:57-0500 Body weight 57.15 kg Louis Valencia MD Work Phone: [facility] 08-09-2023 12:57-0500 Respiratory rate 16 /min Louis Valencia MD Work Phone: [facility] 08-05-2023 13:35-0500 Body height 165.1 cm Sam Erin STAIN MAKER.MARKING MACHINE OPERATOR Work Phone: [facility] 08-05-2023 13:35-0500 Body weight 57.38 kg Sam Erin STAIN MAKER.MARKING MACHINE OPERATOR Work Phone: [facility] 08-05-2023 13:35-0500 Diastolic blood pressure 72 mm[Hg] Sam Erin STAIN MAKER.MARKING MACHINE OPERATOR Work Phone: [facility] 08-05-2023 13:35-0500 Respiratory rate 16 /min Sam Erin STAIN MAKER.MARKING MACHINE OPERATOR Work Phone: [facility] 08-05-2023 13:35-0500 Systolic blood pressure 118 mm[Hg] Sam Erin STAIN MAKER.MARKING MACHINE OPERATOR Work Phone: [facility] 08-01-2023 08:19-0500 Body temperature 97.5 [degF] Chris Mismgg PA Work Phone: [facility] 08-01-2023 08:19-0500 Body weight 59.88 kg Krislyn Aberegg PA Work Phone: [facility] 08-01-2023 08:19-0500 Diastolic blood pressure 86 mm[Hg] Krislyn Aberegg PA Work Phone: [facility] 08-01-2023 08:19-0500 Heart rate 69 /min Krislyn Aberegg PA Work Phone: [facility] 08-01-2023 08:19-0500 Respiratory rate 20 /min Krislyn Aberegg PA Work Phone: [facility] 08-01-2023 08:19-0500 SaO2% (BldA) [Mass fraction] 99 % Krislyn Aberegg PA Work Phone: [facility] 08-01-2023 08:19-0500 Systolic blood pressure 133 mm[Hg] Krislyn Aberegg PA Work Phone: [facility] 06-16-2023 09:19-0500 Body height 165.1 cm Antonio Rios MD Work Phone: [facility] 06-16-2023 09:19-0500 Body weight 56.7 kg Antonio Rios MD Work Phone: [facility] 05-12-2023 09:22-0500 Heart rate 68 /min Charles Prebish STAIN MAKER.MARKING MACHINE OPERATOR Work Phone: [facility] 05-12-2023 09:22-0500 Respiratory rate 16 /min Charles Prebish STAIN MAKER.MARKING MACHINE OPERATOR Work Phone: [facility] 05-12-2023 09:22-0500 SaO2% (BldA) [Mass fraction] 100 % Charles Prebish STAIN MAKER.MARKING MACHINE OPERATOR Work Phone: [facility] 04-30-2023 09:39-0400 Body weight 57.61 kg Rick Anderson MD Work Phone: [facility] 04-30-2023 09:39-0400 Diastolic blood pressure 85 mm[Hg] Rick Anderson MD Work Phone: [facility] 04-30-2023 09:39-0400 Heart rate 147 /min Rick Anderson MD Work Phone: [facility] 04-30-2023 09:39-0400 Respiratory rate 18 /min Rick Anderson MD Work Phone: [facility] 04-30-2023 09:39-0400 Systolic blood pressure 124 mm[Hg] Rick Anderson MD Work Phone: [facility] 04-30-2023 09:00-0400 Body temperature 97.81 [degF] Anny Older STAIN MAKER.MARKING MACHINE OPERATOR Work Phone: [facility] 04-30-2023 09:00-0400 Diastolic blood pressure 84 mm[Hg] Anny Older STAIN MAKER.MARKING MACHINE OPERATOR Work Phone: [facility] 04-30-2023 09:00-0400 Heart rate 149 /min Anny Older STAIN MAKER.MARKING MACHINE OPERATOR Work Phone: [facility] 04-30-2023 09:00-0400 Respiratory rate 20 /min Anny Older STAIN MAKER.MARKING MACHINE OPERATOR Work Phone: [facility] 04-30-2023 09:00-0400 SaO2% (BldA) [Mass fraction] 99 % Anny Older STAIN MAKER.MARKING MACHINE OPERATOR Work Phone: [facility] 04-30-2023 09:00-0400 Systolic blood pressure 117 mm[Hg] Anny Older STAIN MAKER.MARKING MACHINE OPERATOR Work Phone: [facility] 04-25-2023 15:02-0400 Body weight 58.06 kg Sam Erin STAIN MAKER.MARKING MACHINE OPERATOR Work Phone: [facility] 04-25-2023 15:02-0400 Diastolic blood pressure 80 mm[Hg] Sam Erin STAIN MAKER.MARKING MACHINE OPERATOR Work Phone: [facility] 10-30-2023 15:02-0400 Heart rate 119 /min Sam Erin STAIN MAKER.MARKING MACHINE OPERATOR Work Phone: [facility] 04-25-2023 15:02-0400 SaO2% (BldA) [Mass fraction] 98 % Sam Erin STAIN MAKER.MARKING MACHINE OPERATOR Work Phone: [facility] 04-25-2023 15:02-0400 Systolic blood pressure 110 mm[Hg] Sam Erin STAIN MAKER.MARKING MACHINE OPERATOR Work Phone: [facility] 03-15-2023 09:57-0400 Body height 165.[address] LAVONNE WEAVER MD [facility] 03-15-2023 09:57-0400 Body temperature 98.42 [degF] DR LAVONNE WEAVER MD [facility] 03-15-2023 09:57-0400 Body weight 56.[address] LAVONNE WEAVER MD [facility] 03-15-2023 09:57-0400 Diastolic Blood Pressure Non-Invasive [address] LAVONNE WEAVER MD [facility] 03-15-2023 09:57-0400 Heart rate 117 /min DR LAVONNE WEAVER MD [facility] 03-15-2023 09:57-0400 Respiratory rate 20 /min DR LAVONNE WEAVER MD [facility] 03-15-2023 09:57-0400 Systolic Blood Pressure Non-Invasive [address] LAVONNE WEAVER MD [facility] 02-08-2023 12:04-0400 Body weight 58.06 kg Sam Erin STAIN MAKER.MARKING MACHINE OPERATOR Work Phone: [facility] 02-08-2023 12:04-0400 Diastolic blood pressure 80 mm[Hg] Sam Erin STAIN MAKER.MARKING MACHINE OPERATOR Work Phone: [facility] 02-08-2023 12:04-0400 Heart rate 103 /min Sam Erin STAIN MAKER.MARKING MACHINE OPERATOR Work Phone: [facility] 02-08-2023 12:04-0400 SaO2% (BldA) [Mass fraction] 99 % Sam Erin STAIN MAKER.MARKING MACHINE OPERATOR Work Phone: [facility] 02-08-2023 12:04-0400 Systolic blood pressure 102 mm[Hg] Sam Erin STAIN MAKER.MARKING MACHINE OPERATOR Work Phone: [facility] 01-25-2023 12:53-0400 Body temperature 98.06 [degF] JUAN MIGUEL MANLEY MD [facility] 01-25-2023 12:53-0400 Diastolic Blood Pressure Non-Invasive 84 1 JUAN MIGUEL MANLEY MD [facility] 01-25-2023 12:53-0400 Heart rate 112 /min JUAN MIGUEL MANLEY MD [facility] 01-25-2023 12:53-0400 Respiratory rate 18 /min JUAN MIGUEL MANLEY MD [facility] 01-25-2023 12:53-0400 Systolic Blood Pressure Non-Invasive 119 1 JUAN MIGUEL MANLEY MD [facility] 01-10-2023 15:22-0400 Body temperature 98.29 [degF] Maile Norman MD Work Phone: [facility] 01-10-2023 15:22-0400 Body weight 59.88 kg Maile Norman MD Work Phone: [facility] 01-10-2023 15:22-0400 Diastolic blood pressure 68 mm[Hg] Maile Norman MD Work Phone: [facility] 01-10-2023 15:22-0400 Heart rate 109 /min Maile Norman MD Work Phone: [facility] 01-10-2023 15:22-0400 Respiratory rate 18 /min Maile Norman MD Work Phone: [facility] 01-10-2023 15:22-0400 SaO2% (BldA) [Mass fraction] 98 % Maile Norman MD Work Phone: [facility] 01-10-2023 15:22-0400 Systolic blood pressure 132 mm[Hg] Maile Norman MD Work Phone: [facility] 12-01-2022 13:43-0400 Body weight 56.79 kg Gayla Podlogar STAIN MAKER.MARKING MACHINE OPERATOR Work Phone: [facility] 12-01-2022 13:43-0400 Diastolic blood pressure 74 mm[Hg] Gayla Podlogar STAIN MAKER.MARKING MACHINE OPERATOR Work Phone: [facility] 12-01-2022 13:43-0400 Heart rate 82 /min Gayla Podlogar STAIN MAKER.MARKING MACHINE OPERATOR Work Phone: [facility] 12-01-2022 13:43-0400 Respiratory rate 18 /min Gayla Podlogar STAIN MAKER.MARKING MACHINE OPERATOR Work Phone: [facility] 12-01-2022 13:43-0400 SaO2% (BldA) [Mass fraction] 99 % Gayla Podlogar STAIN MAKER.MARKING MACHINE OPERATOR Work Phone: [facility] 12-01-2022 13:43-0400 Systolic blood pressure 106 mm[Hg] Gayla Podlogar STAIN MAKER.MARKING MACHINE OPERATOR Work Phone: [facility] 09-09-2022 10:11-0400 Body temperature 97.59 [degF] Pennie Clemente STAIN MAKER.MARKING MACHINE OPERATOR Work Phone: [facility] 09-09-2022 10:11-0400 Body weight 58.15 kg Pennie Clemente STAIN MAKER.MARKING MACHINE OPERATOR Work Phone: [facility] 03-16-2023 10:11-0400 Diastolic blood pressure 78 mm[Hg] Pennie Praisler-Wood STAIN MAKER.MARKING MACHINE OPERATOR Work Phone: [facility] 09-09-2022 10:11-0400 Heart rate 96 /min Pennie Praisler-Wood STAIN MAKER.MARKING MACHINE OPERATOR Work Phone: [facility] 09-09-2022 10:11-0400 Respiratory rate 16 /min Pennie Praisler-Wood STAIN MAKER.MARKING MACHINE OPERATOR Work Phone: [facility] 09-09-2022 10:11-0400 SaO2% (BldA) [Mass fraction] 98 % Pennie Praisler-Wood STAIN MAKER.MARKING MACHINE OPERATOR Work Phone: [facility] 09-09-2022 10:11-0400 Systolic blood pressure 110 mm[Hg] Pennie Praisler-Wood STAIN MAKER.MARKING MACHINE OPERATOR Work Phone: [facility] 07-18-2022 11:13-0500 Body temperature 97.39 [degF] Kimberly Rodriguez STAIN MAKER.MARKING MACHINE OPERATOR Work Phone: [facility] 07-18-2022 11:13-0500 Body weight 59.88 kg Kimberly Rodriguez APRN.MARKING MACHINE OPERATOR Work Phone: [facility] 07-18-2022 11:13-0500 Diastolic blood pressure 70 mm[Hg] Kimberly Rodriguez STAIN MAKER.MARKING MACHINE OPERATOR Work Phone: [facility] 07-18-2022 11:13-0500 Heart rate 82 /min Kimberly Rodriguez STAIN MAKER.MARKING MACHINE OPERATOR Work Phone: [facility] 07-18-2022 11:13-0500 Respiratory rate 16 /min Kimberly Rodriguez STAIN MAKER.MARKING MACHINE OPERATOR Work Phone: [facility] 07-18-2022 11:13-0500 SaO2% (BldA) [Mass fraction] 99 % Kimberly Rodriguez STAIN MAKER.MARKING MACHINE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 [facility] Facility:[facility] Start: 01-02-2024 Telephone encounter Sam Cleav er STAIN MAKER.MARKING MACHINE OPERATOR Work Phone: Internal [facility] Comment on above: Refill Request Start: 01-01-2024 End: 01-01-2024 Emergency department patient visit [facility] Facility:[facility] Start: 12-27-2023 Telephone encounter Sam Cleav er STAIN MAKER.MARKING MACHINE OPERATOR Work Phone: Internal [facility] Comment on above: Refill Request Start: 12-20-2023 End: 12-20-2023 ambulatory [facility] Facility:[facility] Start: 12-20-2023 End: 12-20-2023 Patient encounter procedure Asm Erin STAIN MAKER.MARKING MACHINE OPERATOR Work Phone: Internal [facility] Comment on above: Chronic right should er pain (Primary Dx); S/P shoulder surgery; Bursitis of right shoulder; Post-op pain; Tear of right glenoid labrum, subsequent encounter Start: 12-14-2023 Refill Maile escobar MD Work Phone: Internal [facility] Comment on above: Refill Request Start: 12-07-2023 Telephone encounter Sam Cleav er STAIN MAKER.MARKING MACHINE OPERATOR Work Phone: Internal Medicine [place] Start: 11-28-2023 Telephone encounter Maile thomas MD Work Phone: Internal Medicine [place] Comment on above: panic attacks Start: 11-23-2023 Telephone encounter Sam Cleav er STAIN MAKER.MARKING MACHINE OPERATOR Work Phone: Internal Medicine [place] Comment on above: Refill Request Start: 11-16-2023 Telephone encounter Sam Cleav er STAIN MAKER.MARKING MACHINE OPERATOR Work Phone: Internal Medicine [place] Comment on above: Patient Question Start: 11-11-2023 End: 11-11-2023 Patient encounter procedure Sam Erin STAIN MAKER.MARKING MACHINE OPERATOR Work Phone: Internal Medicine [place] Comment on above: Chronic right should er pain (Primary Dx); Tear of right glenoid labrum, subsequent encounter; S/P shoulder surgery; Post-op pain Start: 11-09-2023 Telephone encounter Sam Cleav er STAIN MAKER.MARKING MACHINE OPERATOR Work Phone: Internal Medicine [place] Start: 11-04-2023 Telephone encounter Sam Cleav er STAIN MAKER.MARKING MACHINE OPERATOR Work Phone: Internal Medicine [place] Start: 10-26-2023 Telephone encounter Sam Cleav er STAIN MAKER.MARKING MACHINE OPERATOR Work Phone: Internal Medicine [place] Start: 10-25-2023 End: 10-25-2023 ambulatory Yodit Baker [facility] Comment on above: Bicipital tendinitis of right shoulder (Primary Dx) Start: 10-21-2023 Telephone encounter Sam Cleav er STAIN MAKER.MARKING MACHINE OPERATOR Work Phone: Internal Medicine [place] Start: 10-14-2023 End: 10-14-2023 Patient encounter procedure Sam Verduzcor STAIN MAKER.MARKING MACHINE OPERATOR Work Phone: Internal Medicine [place] Comment on above: Post-op pain; Chronic right shoulder pain; Tear of right glenoid labrum, subsequent encounter; S/P shoulder surgery Start: 10-11-2023 End: 10-11-2023 Patient encounter procedure Louis Valencia MD Work Phone: [facility] Comment on above: S/P right rotator cu ff repair (Primary Dx) Start: 10-11-2023 End: 10-11-2023 ambulatory LOUIS VALENCIA Facility:[facility] Start: 10-10-2023 End: 10-10-2023 ambulatory Claire Harrington PTA Work Phone: [facility] Comment on above: Bicipital tendinitis of right shoulder (Primary Dx) Start: 10-09-2023 End: 10-13-2023 ambulatory CESAR MARROQUIN DO Facility:[facility] Start: 10-09-2023 End: 10-13-2023 Outreach Lab CESAR MARROQUIN DO [facility] Start: 10-03-2023 End: 10-03-2023 ambulatory Clairekymberly Andrea CANDLE CUTTER Work Phone: [facility] Comment on above: Bicipital tendinitis of right shoulder (Primary Dx) Start: 09-30-2023 Refill Sam Khan STAIN MAKER.MARKING MACHINE OPERATOR Work Phone: Internal Medicine [place] Comment on above: Refill Request Work note Start: 09-27-2023 Telephone encounter Maile thomas MD Work Phone: Internal Medicine [place] Comment on above: Opened In Error Start: 09-27-2023 End: 09-27-2023 Patient encounter procedure Sam Khan STAIN MAKER.MARKING MACHINE OPERATOR Work Phone: Internal Medicine [place] Comment on above: Tear of right rotato r cuff, unspecified tear extent, unspecified whether traumatic (Primary Dx); Tear of right glenoid labrum, subsequent encounter; S/P shoulder surgery; Post-op pain; Chronic right shoulder pain Start: 09-26-2023 End: 09-26-2023 Emergency department patient visit DR TU DE ANDA MD [facility] Start: 09-19-2023 End: 09-19-2023 ambulatory Claire Harrington CANDLE CUTTER Work Phone: [facility] Comment on above: Bicipital tendinitis of right shoulder (Primary Dx) Start: 09-15-2023 Refill Maile escobar MD Work Phone: Internal Medicine [place] Comment on above: Refill Request Start: 09-13-2023 End: 09-13-2023 Patient encounter procedure Louis Valencia MD Work Phone: [facility] Comment on above: S/P right rotator cu ff repair (Primary Dx) Start: 09-13-2023 End: 09-13-2023 ambulatory MAILE NORMAN Facility:[facility] Start: 09-09-2023 End: 09-09-2023 Patient encounter procedure Sam Khan APRN.MARKING MACHINE OPERATOR Work Phone: Internal Medicine [place] Comment on above: Post-op pain (Primar y Dx); Tear of right glenoid labrum, subsequent encounter; S/P shoulder surgery Start: 09-05-2023 Admission to [facility] Laura Martin PA-C Work Phone: [facility] Comment on above: S/P shoulder surgery (Primary Dx) Start: 09-05-2023 End: 09-05-2023 ambulatory Yodit Baker PT [facility] Comment on above: Bicipital tendinitis of right shoulder (Primary Dx) Start: 09-02-2023 Refill Louis Valencia MD Work Phone: [facility] Start: 09-01-2023 Refill Louis Valencia MD Work Phone: [facility] Comment on above: Refill Request Start: 08-29-2023 End: 08-29-2023 ambulatory LOUIS VALENCIA Facility:[facility] Start: 08-28-2023 Admission to [facility] Sam Khan APRN.MARKING MACHINE OPERATOR Work Phone: Internal Medicine [place] Comment on above: Shoulder surgery Start: 08-28-2023 ambulatory Sam Khan APRN.MARKING MACHINE OPERATOR Work Phone: [facility] Start: 08-23-2023 Telephone encounter Maile thomas MD Work Phone: Internal Medicine [place] Comment on above: FYI-No Action Needed Start: 08-18-2023 [facility] [address] [facility] Start: 08-18-2023 End: 08-18-2023 Preprocedural examination done Pst [address] [place] [address] Work Phone: Start: 08-18-2023 End: 08-18-2023 PAT [facility] 1 Pre Surgical Testin g Comment on above: Pre-op exam; Bicipital tendonitis of right shoulder; H/O chronic hepatitis; Tobacco use disorder; Marijuana use; Other migraine without status migrainosus, not intractable; Congestive heart failure, unspecified HF chronicity, unspecified heart failure type (HCC) Start: 08-11-2023 Telephone encounter Pennie Ruthmarianna Penn APRN.MARKING MACHINE OPERATOR Work Phone: [facility] Comment on above: Results Start: 08-11-2023 End: 08-11-2023 Subsequent hospital visit by physician Xr [facility] [place] Work Phone: Radiology Comment on above: Acute cough [R05.1] Start: 08-11-2023 End: 08-11-2023 Patient encounter procedure Pennie Clemente APRN.MARKING MACHINE OPERATOR Work Phone: [facility] Comment on above: Acute cough (Primary Dx); Viral bronchitis Start: 08-10-2023 Orders Only Louis Valencia MD Work Phone: [facility] Comment on above: Bicipital tendinitis of right shoulder (Primary Dx) Start: 08-09-2023 End: 08-09-2023 Patient encounter procedure Louis Valencia MD Work Phone: [facility] Comment on above: Biceps tendinitis of right upper extremity (Primary Dx) Start: 08-09-2023 End: 08-09-2023 ambulatory MAILE NORMAN Facility:[facility] Start: 08-05-2023 End: 08-05-2023 Patient encounter procedure Sam Khan APRN.MARKING MACHINE OPERATOR Work Phone: Internal Medicine [place] Comment on above: Tear of right glenoi d labrum, subsequent encounter (Primary Dx); Chronic right shoulder pain Start: 08-01-2023 End: 08-01-2023 Patient encounter procedure Chris NASH Work Phone: [facility] Comment on above: Flu-like symptoms (P rimary Dx); URI, acute Start: 07-29-2023 Refill Maile escobar MD Work Phone: Internal Medicine [place] Comment on above: Refill Request Start: 06-16-2023 End: 06-16-2023 Patient encounter procedure Antonio Rios MD Work Phone: Orthopaedics Comment on above: Chronic right should er pain; Labral tear of shoulder, degenerative, right Start: 05-25-2023 Refill Maile escobar MD Work Phone: [facility] [place] Comment on above: Refill Request Start: 05-14-2023 ambulatory [facility] [place] Comment on above: information from Dr Norman Start: 05-14-2023 E-mail encounter fro m caregiver [facility] Start: 05-13-2023 ambulatory Pcp (Historical) [facility] Start: 05-12-2023 End: 05-12-2023 Emergency department patient visit JUAN MIGUEL MANLEY MD Facility:[facility] Start: 05-12-2023 Telephone encounter Charles shelton STAIN MAKER.MARKING MACHINE OPERATOR Work Phone: [facility] Comment on above: Referral Information Refill Request Start: 05-12-2023 End: 05-12-2023 Office outpatient new 45 minutes Charles Prenicholas STAIN MAKER.MARKING MACHINE OPERATOR Work Phone: [facility] Comment on above: Chronic right should er pain (Primary Dx); Labral tear of shoulder, degenerative, right Start: 05-12-2023 End: 05-12-2023 ambulatory CHARLES PREBISH Facility:[facility] Start: 05-04-2023 Telephone encounter Rick solo MD Work Phone: Internal Medicine [place] Comment on above: Results Start: 05-02-2023 Telephone encounter Keith Diaz PA-C Work Phone: [facility] Start: 04-30-2023 End: 04-30-2023 Patient encounter procedure Rick Anderson MD Work Phone: Internal Medicine [place] Comment on above: Tachycardia (Primary Dx); Encounter for immunization; Need for influenza vaccination; Need for vaccination; Anxiety; Tobacco use disorder; Screening for cervical cancer Dysuria (Primary Dx) Start: 04-25-2023 End: 04-25-2023 Patient encounter procedure Sam Khan APRN.MARKING MACHINE OPERATOR Work Phone: [facility] [place] Comment on above: Acute cystitis with hematuria (Primary Dx); Tear of right glenoid labrum, subsequent encounter; Chronic right shoulder pain Start: 04-25-2023 Telephone encounter Maile thomas MD Work Phone: Internal [facility] [place] Comment on above: Medication Problem Start: 04-11-2023 E-mail encounter fro m caregiver [facility] LEYAD ROTH Start: 04-11-2023 Patient encounter procedure [facility] Comment on above: 04/28/2023 ely mcneill Start: 03-30-2023 Telephone encounter Oksana Weldon APRN.MARKING MACHINE OPERATOR Work Phone: [facility] Comment on above: Results Start: 03-30-2023 End: 03-30-2023 Subsequent hospital visit by physician Xr [facility] Work Phone: Radiology Comment on above: Fever, unspecified f ever cause [R50.9] Start: 03-18-2023 Refill Maile escobar MD Work Phone: Internal [facility] [place] Comment on above: Refill Request Start: 03-15-2023 End: 03-15-2023 Emergency department patient visit DR LAVONNE WEAVER MD [facility] Start: 03-14-2023 ambulatory Sam Khan APRN.MARKING MACHINE OPERATOR Work Phone: Internal [facility] [place] Comment on above: MRI Start: 03-14-2023 E-mail encounter fro m caregiver Sam Khan APRN.MARKING MACHINE OPERATOR Work Phone: [facility] Start: 03-11-2023 End: 03-11-2023 Subsequent hospital visit by physician Mri [facility] [facility] (I-Stat/1.5t) Work Phone: Radiology Comment on above: Tear of right glenoi d labrum, subsequent encounter [S43.431D] Start: 03-07-2023 Refill Maile escobar MD Work Phone: Internal [facility] [place] Comment on above: Refill Request Start: 03-04-2023 Telephone encounter Sam schulz APRN.MARKING MACHINE OPERATOR Work Phone: Internal Medicine [place] Comment on above: Orders Start: 02-15-2023 ambulatory No Pcp STAIN MAKER Sallyjemima Ryder [employer] Start: 02-09-2023 ambulatory Maile escobar MD Work Phone: [facility] Start: 02-08-2023 End: 02-08-2023 Patient encounter procedure Sam Khan APRN.MARKING MACHINE OPERATOR Work Phone: Internal Medicine [place] Comment on above: Tear of right glenoi d labrum, subsequent encounter (Primary Dx); Chronic right shoulder pain Start: 01-25-2023 End: 01-25-2023 Emergency department patient visit JUAN MIGUEL MANLEY MD [facility] Start: 01-10-2023 End: 01-10-2023 Office outpatient visit 25 minutes Maile Norman MD Work Phone: Internal Medicine [place] Comment on above: Panic attacks Start: 01-10-2023 ambulatory Maile escobar MD Work Phone: Internal Medicine [place] Comment on above: Anxiety Start: 12-06-2022 Telephone encounter Gayla mora APRN.MARKING MACHINE OPERATOR Work Phone: Family Medicine [place] Comment on above: Results Start: 12-01-2022 Telephone encounter Maile thomas MD Work Phone: Internal Medicine [place] Comment on above: Appointment Request Start: 12-01-2022 End: 12-01-2022 Subsequent hospital visit by physician Heather [facility] [place] Work Phone: Radiology Comment on above: Coccydynia [M53.3] Start: 12-01-2022 End: 12-01-2022 Patient encounter procedure Gayla Ayala APRN.MARKING MACHINE OPERATOR Work Phone: Family Medicine [place] Comment on above: Coccydynia (Primary Dx) Start: 09-17-2022 Telephone encounter Maile thomas MD Work Phone: Internal Medicine [place] Comment on above: Anxiety Start: 09-09-2022 End: 09-09-2022 Patient encounter procedure Pennie Clemente APRN.MARKING MACHINE OPERATOR Work Phone: [facility] Comment on above: Viral URI with cough (Primary Dx) Start: 09-08-2022 Telephone encounter Maile thomas MD Work Phone: Internal Medicine [place] Comment on above: Patient Update Start: 08-03-2022 Telephone encounter Maile thomas MD Work Phone: Internal Medicine [place] Comment on above: Medication Request Start: 07-18-2022 End: 07-18-2022 Patient encounter procedure Kimberly Rodriguez APRN.MARKING MACHINE OPERATOR Work Phone: [facility] Comment on above: Sore throat [...] unspecified quadrant Start: 05-12-2022 Telephone encounter Maile thomas MD Work Phone: Internal Medicine [place] Comment on above: Results Start: 05-10-2022 Telephone encounter Maile thomas MD Work Phone: Internal Medicine [place] Comment on above: Appointment Start: 05-07-2022 End: 05-07-2022 Patient encounter procedure Karen Mckee STAIN MAKER.ADVERTISING SALES AGENT Work Phone: Internal Medicine [place] Comment on above: Insomnia, unspecifie d type (Primary Dx); Encounter for immunization; Screening for cervical cancer; Breast pain; Mass of lower inner quadrant of right breast; Chronic right shoulder pain; Encounter for well woman exam with routine gynecological exam Start: 04-20-2022 Refill Karen Mckee STAIN MAKER.ADVERTISING SALES AGENT Work Phone: Family Medicine [place] Comment on above: Refill Request Start: 04-12-2022 ambulatory Pcp ([facility]) [facility] Start: 03-16-2022 End: 03-16-2022 Subsequent hospital visit by physician Xr [facility] [place] Work Phone: Radiology Comment on above: Splinter of finger [ S60.459A] Start: 03-16-2022 End: 03-16-2022 Patient encounter procedure Pennie Clemente STAIN MAKER.MARKING MACHINE OPERATOR Work Phone: [facility] Comment on above: Splinter of finger ( Primary Dx) Start: 03-05-2022 Refill Maile escobar MD Work Phone: Internal Medicine [place] Comment on above: Refill Request Start: 03-03-2022 ambulatory Maile escobar MD Work Phone: Internal Medicine [facility] Start: 01-20-2022 End: 01-20-2022 Patient encounter procedure Galo Bernal STAIN MAKER.MARKING MACHINE OPERATOR Work Phone: [facility] Comment on above: Viral illness (Prima ry Dx) Start: 01-05-2022 End: 01-05-2022 Patient encounter procedure Galo Bernal STAIN MAKER.MARKING MACHINE OPERATOR Work Phone: [facility] Comment on above: Procedure not billy d out (Primary Dx) Start: 12-18-2021 Telephone encounter Maile thomas MD Work Phone: Internal Medicine [place] Comment on above: ABO Blood Type Start: 07-18-2021 End: 07-18-2021 Emergency department patient visit Boubacar Perea MD Work Phone: [facility] ED Comment on above: Jaw pain (Primary Dx ); History of tooth extraction, unspecified edentulism class Start: 03-09-2021 End: 03-09-2021 Subsequent hospital visit by physician Xr [facility] [place] Work Phone: Radiology Comment on [...] Radex hand minimum 3 views Galo butt STAIN MAKER.MARKING MACHINE OPERATOR Work Phone: Start: 05-10-2024 Radex forearm 2 views Karen Mckee STAIN MAKER.ADVERTISING SALES AGENT Work Phone: Start: 03-07-2024 Radiologic exam chest 2 views Sam Khan STAIN MAKER.MARKING MACHINE OPERATOR Work Phone: Start: 02-07-2024 Arthrocentesis aspir&/inj major jt/bursa w/o us Louis Valencia MD Work Phone: Start: 08-11-2023 Radiologic exam chest 2 views Pennie Clemente STAIN MAKER.MARKING MACHINE OPERATOR Work Phone: Start: 08-11-2023 STREP A MOLECULAR (POC) [facility] Provider Start: 08-01-2023 INFLUENZA A&B MOLECULAR (POC) Chris NASH Work Phone: Start: 04-30-2023 INFLUENZA VACCINE, AGE 6 MO - 64 YR, QUADRIVALENT (AFLURIA, FLULAVAL, FLUZONE) Rick Anderson MD Work Phone: Start: 04-30-2023 Urnls dip stick/tablet rgnt auto w/o microscopy Anny Older STAIN MAKER.MARKING MACHINE OPERATOR Work Phone: Start: 04-25-2023 Urnls dip stick/tablet rgnt auto w/o microscopy Sam Erin STAIN MAKER.MARKING MACHINE OPERATOR Work Phone: Start: 03-30-2023 Radiologic exam chest 2 views Oksana Blairk STAIN MAKER.MARKING MACHINE OPERATOR Work Phone: Start: 03-11-2023 Mri any jt upper extremity w/o & w/contr matrl Sam Erin STAIN MAKER.MARKING MACHINE OPERATOR Work Phone: Start: 12-01-2022 Radex sacrum & coccyx minimum 2 views Gayla Ayala STAIN MAKER.MARKING MACHINE OPERATOR Work Phone: Start: 07-18-2022 STREP A MOLECULAR (POC) Kimberly Rodriguez STAIN MAKER.MARKING MACHINE OPERATOR Work Phone: Start: 03-16-2022 Radex fingr minimum 2 views Pennie Austin STAIN MAKER.MARKING MACHINE OPERATOR Work Phone: Start: 07-18-2021 End: 07-18-2021 Ct head/brain w/o contrast material Boubacar Perea MD Work Phone: Start: 07-18-2021 Basic metabolic panel calcium total Boubacar Perea MD Work Phone: Start: 03-09-2021 Radiologic exam chest 2 views Yodit Saxena STAIN MAKER.MARKING MACHINE OPERATOR Work Phone: Adenoid excision JUAN MIGUEL VALERIO [...] DTaP,Tdap,Td Vaccine (3 - Td or Tdap) [facility] Start: 03-15-2032 Urine microalbumin profile [facility] Start: 07-09-2029 Screening for malign ant neoplasm of cervix Cervical Cancer Screening [facility] Start: 09-21-2025 Annual PCP Team Water Resource Project Manager [place] Disease Visit Annual PCP Team Chronic Disease Visit [facility] Start: 07-31-2025 Annual PCP Team Water Resource Project Manager [place] [facility] Visit Annual PCP Team Chronic Disease Visit [facility] Start: 07-31-2025 Hepatitis B Vaccine (2 of 3 - Hep B Twinrix 3-dose series) Hepatitis B Vaccine (2 of 3 - Hep B Twinrix 3-dose series) [facility] Comment on above: Postponed from 05/19 (Declined at this time) Start: 07-11-2025 Annual PCP Team Water Resource Project Manager [place] Disease Visit Annual PCP Team Chronic Disease Visit [facility] Start: 05-15-2025 Annual PCP Team Water Resource Project Manager [place] Disease Visit Annual PCP Team Chronic Disease Visit [facility] Start: 04-25-2025 Annual PCP Team Water Resource Project Manager [place] Disease Visit Annual PCP Team Chronic Disease Visit [facility] Start: 03-28-2025 Annual PCP Team Water Resource Project Manager [place] Disease Visit Annual PCP Team Chronic Disease Visit [facility] Start: 03-28-2025 Covid-19 Vaccine ( season) Covid-19 Vaccine ( season) [facility] Comment on above: Postponed from 02/25 (Declined at this time) Start: 02-27-2025 Annual PCP Team Water Resource Project Manager [place] Disease Visit Annual PCP Team Chronic Disease Visit [facility] Start: 02-25-2025 Influenza vaccination Influenz a Vaccine (Season Ended) [facility] Start: 02-04-2025 End: 02-04-2025 Patient encounter procedure 02/04/2025 4:40 PM EDT Office Visit Internal [facility] [place] [address] [place] [address] Maile Norman MD [address] [place] [address] 3 month follow up [facility] [place] Comment on above: 3 month follow up Start: 01-24-2025 Annual PCP Team Water Resource Project Manager [place] Disease Visit Annual PCP Team Chronic Disease Visit [facility] Start: 01-10-2025 Annual PCP Team Water Resource Project Manager [place] Disease Visit Annual PCP Team Chronic Disease Visit [facility] Start: 01-04-2025 End: 01-04-2025 Patient encounter procedure 01/04/2025 1:15 PM EDT Office Visit Orthopedics [address] [facility] [address] [place] [phone] Louis Valencia MD [address] [place] [address] right shoulder Orthopedics Comment on above: right shoulder Start: 01-03-2025 End: 01-03-2025 Patient encounter procedure 01/03/2025 8:30 AM EDT Office Visit [facility] [address] [place] [address] Charles Stanton APRN.MARKING MACHINE OPERATOR [address] [place] [address] S/P shoulder surgery [Z98.890]; Traumatic tear of right rotator cuff, unspecified tear extent, subsequent encounter [S46.011D]; Acute pain of right shoulder [M25.511] [facility] Comment on above: S/P shoulder surgery [Z98.890]; Traumatic tear of right rotator cuff, unspecified tear extent, subsequent encounter [S46.011D]; Acute pain of right shoulder [M25.511] Start: 12-24-2024 Influenza vaccination Influenza Vacc ine (#1) [facility] Comment on above: Postponed from 02/25 (Declined at this time) Start: 12-24-2024 End: 12-24-2024 ambulatory 12/24/2024 10:45 AM EDT OT/PT/Speech Visit [facility] [address] [place] [address] Kofi Gannon PT Z98.890 (ICD-10-CM) - S/P right rotator cuff repair [facility] Comment on above: Z98.890 (ICD-10-CM) - S/P right rotator cuff repair Start: 12-19-2024 Annual PCP Team Water Resource Project Manager [place] Disease Visit Annual PCP Team Chronic Disease Visit [facility] Start: 12-17-2024 End: 12-17-2024 ambulatory 12/17/2024 10:15 AM EDT OT/PT/Speech Visit [facility] [address] [place] [address] Claire Harrington CANDLE CUTTER [address] [place] [address] Z98.890 (ICD-10-CM) - S/P right rotator cuff repair [facility] Comment on above: Z98.890 (ICD-10-CM) - S/P right rotator cuff repair Start: 12-10-2024 End: 12-10-2024 ambulatory 12/10/2024 9:45 AM EDT OT/PT/Speech Visit [facility] [address] [place] [address] Kofi Gannon PT Z98.890 (ICD-10-CM) - S/P right rotator cuff repair [facility] Comment on above: Z98.890 (ICD-10-CM) - S/P right rotator cuff repair Start: 12-03-2024 End: 12-03-2024 ambulatory 12/03/2024 9:30 AM EDT OT/PT/Speech Visit [facility] [address] [address] Claire Harrington, CANDLE CUTTER [address] [place] [address] Z98.890 (ICD-10-CM) - S/P right rotator cuff repair [facility] Comment on above: Z98.890 (ICD-10-CM) - S/P right rotator cuff repair Start: 11-30-2024 End: 11-30-2024 Patient encounter procedure 11/30/2024 8:00 AM EDT Office Visit [facility] [place] [address] [facility] [place] [address] Sam Khan APRN.MARKING MACHINE OPERATOR [address] [place] [address] 2 wk follow up [facility] [place] Comment on above: 2 wk follow up Start: 11-28-2024 End: 11-28-2024 Patient encounter procedure 11/28/2024 11:40 AM EDT Office Visit [facility] [place] [address] [place] [address] Sam Khan APRN.MARKING MACHINE OPERATOR [address] [place] [address] 2 wk follow up [facility] [place] Comment on above: 2 wk follow up Start: 11-26-2024 End: 11-26-2024 ambulatory 11/26/2024 9:00 AM EDT OT/PT/Speech Visit [facility] [address] [place] [address] Kofi Gannon, PT Post Op PT [facility] Comment on above: Post Op PT Start: 11-23-2024 End: 11-23-2024 Patient encounter procedure 11/23/2024 2:15 PM EDT Office Visit Orthopedics [address] [facility] [address] [place] [phone] Louis Valencia MD [address] [facility] [address] [place] [address] S/P Right shoulder Dx arthroscopy 10-12-2024 Orthopedics Comment on above: S/P Right shoulder D x arthroscopy 10-12-2024 Start: 11-14-2024 End: 11-14-2024 ambulatory 11/14/2024 9:00 AM EDT OT/PT/Speech Visit [facility] [address] [place] [address] Jono Gallego, PT [address] [place] [address] Post Op PT [facility] Comment on above: Post Op PT Start: 11-10-2024 Annual PCP Team Water Resource Project Manager [place] Disease Visit Annual PCP Team Chronic Disease Visit [facility] Start: 11-02-2024 End: 11-02-2024 Patient encounter procedure [facility] [place] Comment on above: 3 month follow up Start: 10-26-2024 End: 10-26-2024 Patient encounter procedure 10/26/2024 3:00 PM EDT Office Visit Orthopedics [address] [facility] [address] [place] [address] Louis Valencia MD [address] [place] [address] S/P Right shoulder Dx arthroscopy 10-12-2024 Orthopedics Comment on above: S/P Right shoulder D x arthroscopy 10-12-2024 Start: 10-19-2024 End: 10-19-2024 ambulatory 10/19/2024 9:30 AM EDT OT/PT/Speech Visit [facility] [address] [place] [address] Jono Gallego, PT [address] [place] [place] [address] Post Op PT [facility] Comment on above: Post Op PT Start: 10-19-2024 End: 10-19-2024 Patient encounter procedure 10/19/2024 9:20 AM EDT Office Visit [facility] [place] [address] [place] [address] Maile Norman MD [address] [place] [address] Pain management after surgery. 2nd rotator cuff surgery. [facility] [place] Comment on above: Pain management afte r surgery. 2nd rotator cuff surgery. Start: 10-13-2024 Annual PCP Team Water Resource Project Manager [place] Disease Visit Annual PCP Team Chronic Disease Visit [facility] Start: 10-12-2024 End: 10-12-2024 Admission to same day surgery center 10/12/2024 10:50 AM EDT - 10/12/2024 12:31 PM EDT Surgery [facility] Surgery [address] [place] [address] Louis Valencia MD [address] [place] [address] ARTHROSCOPY SHOULDER [facility] Comment on above: ARTHROSCOPY SHOULDER Start: 10-12-2024 End: 10-12-2024 Arthroscopy shoulder dx w/wo synovial biopsy spx ARTHROSCOPY SHOULDER S/P right rotator cuff repair Right shoulder pain, unspecified chronicity 10/12/2024 10:50 AM EDT ME OR Start: 10-12-2024 Subsequent hospital visit by physician 10/12/2024 10:50 AM EDT Hospital Encounter [facility] Surgery [address] [place] [address] Louis Valencia MD [address] [place] [address] S/P right rotator cuff repair [Z98.890], Right shoulder pain, unspecified chronicity [M25.511] [facility] Comment on above: S/P right rotator cu ff repair [Z98.890], Right shoulder pain, unspecified chronicity [M25.511] Start: 09-28-2024 End: 09-28-2024 Anesthesia consultation 09/28/2024 9:20 AM EDT PAT Pre Anesthesia [address] [place] [address] 1, Pacc [place] [address] [place] [address] 10/12 DECLINED VV ARTHROSCOPY SHOULDER [1111] - Shoulder - Right Pre Anesthesia Comment on above: 10/12 DECLINED VV ART HROSCOPY SHOULDER [1111] - Shoulder - Right Start: 09-26-2024 Annual PCP Team Water Resource Project Manager [place] Disease Visit Annual PCP Team Chronic Disease Visit [facility] Start: 09-14-2024 End: 09-14-2024 Patient encounter procedure 09/14/2024 1:45 PM EDT Office Visit Orthopedics [address] [facility] [address] [place] [address] Louis Valencia MD [address] [place], [place] [address] 6 week follow up Orthopedics Comment on above: 6 week follow up Start: 09-08-2024 Annual PCP Team Water Resource Project Manager [place] Disease Visit Annual PCP Team Chronic Disease Visit [facility] Start: 09-08-2024 Covid-19 Vaccine () Covid-19 Vaccine () [facility] Comment on above: Postponed from 02/25 (Declined at this time) Start: 08-05-2024 Annual PCP Team Water Resource Project Manager [place] Disease Visit Annual PCP Team Chronic Disease Visit [facility] Start: 07-31-2024 End: 07-31-2024 Patient encounter procedure 07/31/2024 10:00 AM EST Office Visit [facility] [place] [address] [place] [address] Maile Norman MD [address] [place], [place] [phone] 3 month follow up [facility] [place] Comment on above: 3 month follow up Start: 07-27-2024 End: 07-27-2024 Patient encounter procedure 07/27/2024 2:15 PM EST Office Visit Orthopedics [address] [facility] [address] [place] [phone] Louis Valencia MD [address] [facility]. [facility] [address] [place], [place] [id number] injection, MRI results Orthopedics Comment on above: injection, MRI resul ts Start: 07-13-2024 End: 10-12-2024 Comprehensive metabolic 2000 panel - Serum or Plasma [facility] Work Phone: Comment on above: Expected: 07/13/2024 , Expires: 10/12/2024 Start: 07-09-2024 End: 10-08-2024 Estradiol (E2) [Mass/volume] in Serum or Plasma ESTRADIOL-17B BLD Lab Routine Menopausal symptoms Expected: 07/09/2024, Expires: 10/08/2024 [facility] Comment on above: Expected: 07/09/2024 , Expires: 10/08/2024 Start: 07-09-2024 End: 10-08-2024 Follitropin [Units/volume] in Serum or Plasma FOLLICLE STIMULATING HORMONE Lab Routine Menopausal symptoms Expected: 07/09/2024, Expires: 10/08/2024 [facility] Comment on above: Expected: 07/09/2024 , Expires: 10/08/2024 Start: 07-09-2024 End: 07-09-2024 Patient encounter procedure 07/09/2024 9:50 AM EST Appointment Mammogram [address] [place] [address] KEYON SCREENING W [place] Mammogram Comment on above: KEYON SCREENING W [place] Start: 07-09-2024 End: 07-09-2024 Patient encounter procedure 07/09/2024 7:30 AM EST Office Visit OB/Gynecology [address] [place] [address] Cecile Patricia APRN.MARKING MACHINE OPERATOR [address] [place] [address] Annual, Pap, Interested in pre menopause info OB/Gynecology Comment on above: Annual, Pap, Interes hira in pre menopause info Start: 06-19-2024 End: 06-19-2024 Patient encounter procedure 06/19/2024 7:30 AM EST Appointment Radiology [address] [place] [address] S/P right rotator cuff repair [Z98.890] Radiology Comment on above: S/P right rotator cu ff repair [Z98.890] Start: 06-06-2024 End: 06-06-2024 Patient encounter procedure 06/06/2024 8:30 AM EST Office Visit General Surgery [address] [address] Jhon Maher MD [address] [place] [address] Dx: Injury of left upper extremity, subsequent encounter [S49.92XD (ICD-10-CM)]; Mass of left upper extremity [R22.32 (ICD-10-CM)] General Surgery Comment on above: Dx: Injury of left u pper extremity, subsequent encounter [S49.92XD (ICD-10-CM)]; Mass of left upper extremity [R22.32 (ICD-10-CM)] Start: 05-21-2024 End: 05-21-2024 Patient encounter procedure 05/21/2024 9:40 AM EST Office Visit [facility] [place] [address] [place] [address] Anny Hutchins APRN.MARKING MACHINE OPERATOR [address] [place] [address] follow-up - blister on right hand [facility] [place] Comment on above: follow-up - blister on right hand Start: 05-11-2024 End: 08-10-2024 Herpes simplex virus+Varicella zoster virus DNA [Presence] in Unspecified specimen by MARY KAY with probe detection HSV1,2/VZV NAAT LESION Lab Routine Rash Expected: 05/11/2024, Expires: 08/10/2024 [facility] Work Phone: Comment on above: Expected: 05/11/2024 , Expires: 08/10/2024 Start: 04-25-2024 End: 04-25-2024 Patient encounter procedure 04/25/2024 1:00 PM EDT Office Visit [facility] [place] [address] [place] [address] Sam Khan APRN.MARKING MACHINE OPERATOR [address] [place] [address] 4 week follow up post suture removel left arm [facility] [place] Comment on above: 4 week follow up pos t suture removel left arm Start: 02-28-2024 End: 05-29-2024 CBC W Auto Differential panel - Blood [facility] Work Phone: Comment on above: Expected: 02/28/2024 , Expires: 05/29/2024 Start: 02-28-2024 End: 05-29-2024 Comprehensive metabolic 2000 panel - Serum or Plasma [facility] Comment on above: Expected: 02/28/2024 , Expires: 05/29/2024 Start: 02-28-2024 End: 05-29-2024 Hepatitis C virus Ab [Presence] in Serum [facility] Comment on above: Expected: 02/28/2024 , Expires: 05/29/2024 Start: 02-28-2024 End: 05-29-2024 HIV 1+2 Ab [Presence] in Serum or Plasma by Immunoassay [facility] Comment on above: Expected: 02/28/2024 , Expires: 05/29/2024 Start: 02-26-2024 Covid-19 Vaccine () Covid-19 Vaccine () [facility] Start: 02-26-2024 Covid-19 Vaccine () Covid-19 Vaccine () [facility] Start: 02-26-2024 Influenza vaccination Influenza Vacc ine (#1) [facility] Start: 02-07-2024 End: 02-07-2024 Patient encounter procedure 02/07/2024 3:15 PM EDT Office Visit [facility] [address] [place], [place] [phone] Louis Valencia MD [address] [facility] [place], [place] [phone] est pt post op left shoulder [facility] Comment on above: est pt post op left shoulder Start: 01-25-2024 End: 01-25-2024 Patient encounter procedure 01/25/2024 3:00 PM EDT Office Visit [facility] [place] [address] [place] [address] Sam Khan APRN.MARKING MACHINE OPERATOR [address] [place], [place] [phone] 2 wk follow up [facility] [place] Comment on above: 2 wk follow up Start: 01-11-2024 COVID-19 VACCINE (#1) COVID-19 VACCI NE (#1) [facility] Comment on above: Postponed from 07/25 (Declined at this time) Start: 01-10-2024 End: 01-10-2024 Patient encounter procedure 01/10/2024 8:40 AM EDT Office Visit [facility] [place] [address] [place], [place] [id number] Sam Khan APRN.MARKING MACHINE OPERATOR [address] [facility] [address] 3 week medication follow up [facility] [place] Comment on above: 3 week medication fo llow up Start: 12-20-2023 End: 12-20-2023 Patient encounter procedure 12/20/2023 8:00 AM EDT Office Visit [facility] [place] [address] [place] [address] Sam Khan APRN.MARKING MACHINE OPERATOR [address] [place] [address] med check [facility] [place] Comment on above: med check Start: 12-14-2023 End: 12-14-2023 Patient encounter procedure 12/14/2023 2:40 PM EDT Office Visit [facility] [place] [address] [facility] [place] [address] Sam Khan APRN.MARKING MACHINE OPERATOR [address] [place] [address] Review pain medication [facility] [place] Comment on above: Review pain medicati on Start: 12-14-2023 End: 12-14-2023 ambulatory 12/14/2023 1:30 PM EDT OT/PT/Speech Visit [facility] [address] [place] [address] Yodit Baker, PT right shoulder post op [facility] Comment on above: right shoulder post op Start: 12-07-2023 End: 12-07-2023 ambulatory 12/07/2023 12:45 PM EDT OT/PT/Speech Visit [facility] [address] [place] [address] Yodit Baker, PT right shoulder post op [facility] Comment on above: right shoulder post op Start: 11-30-2023 End: 11-30-2023 ambulatory 11/30/2023 12:45 PM EDT OT/PT/Speech Visit [facility] [address] [place] [address] O'LobitoYodit jack, PT right shoulder post op [facility] Comment on above: right shoulder post op Start: 11-24-2023 End: 11-24-2023 ambulatory 11/24/2023 9:30 AM EDT OT/PT/Speech Visit [facility] [address] [place] [address] O'LobitoPriyaYodit, PT right shoulder post op [facility] Comment on above: right shoulder post op Start: 11-22-2023 End: 11-22-2023 Patient encounter procedure 11/22/2023 1:15 PM EDT Office Visit [facility] [address] [place] [address] Louis Valencia MD [address] [facility] [place], [place] [id number] RIGHT SHOULDER [facility] Comment on above: RIGHT SHOULDER Start: 11-16-2023 End: 11-16-2023 ambulatory 11/16/2023 12:45 PM EDT OT/PT/Speech Visit [facility] [address] [place] [address] O'LobitoYodit jack, PT right shoulder post op [facility] Comment on above: right shoulder post op Start: 11-11-2023 End: 11-11-2023 Patient encounter procedure 11/11/2023 10:20 AM EDT Office Visit [facility] [address] [place] [address] Sam Khan APRN.[facility] [address] [place] [address] Review pain medication [facility] Comment on above: Review pain medicati on Start: 11-09-2023 End: 11-09-2023 ambulatory 11/09/2023 1:30 PM EDT OT/PT/Speech Visit [facility] [address] [place] [address] Yodit Baker, PT right shoulder post op [facility] Comment on above: right shoulder post op Start: 10-25-2023 End: 10-25-2023 ambulatory 10/25/2023 11:15 AM EDT OT/PT/Speech Visit [facility] [address] [place] [address] Yodit Baker, PT [place] Payam [facility] Comment on above: [place] Start: 02-25-2023 Covid-19 Vaccine () Covid-19 Vaccine () [facility] Start: 02-25-2023 Influenza vaccination [facility] Start: 12-24-2022 Influenza vaccination INFLUENZA (#1) [facility] Comment on above: Postponed from 02/25 (Declined at this time) Start: 09-28-2022 HPV TESTING HPV TESTING [facility] Start: 09-28-2022 PAP TESTING PAP TESTING [facility] Start: 09-28-2022 Screening for malign ant neoplasm of cervix [facility] Start: 07-18-2022 End: 08-01-2022 Influenza virus A and B RNA and SARS-CoV-2 (COVID-19) N gene panel - Respiratory specimen by MARY KAY with probe detection COVID WITH FLUA+B, ROUTINE Microbiology Routine URI, acute Expected: 07/18/2022, Expires: 08/01/2022 [facility] Work Phone: Comment on above: Expected: 07/18/2022 , Expires: 08/01/2022 Start: 05-12-2022 COVID-19 VACCINE (#1) COVID-19 VACCI NE (#1) [facility] Comment on above: Postponed from 01/22 (Declined at this time) Postponed from 07/25 (Declined at this time) Start: 05-12-2022 PNEUMOCOCCAL (1 - PCV) PNEUMOCOCCAL (1 - PCV) [facility] Comment on above: Postponed from 01/22 (Declined at this time) Start: 05-07-2022 End: 07-07-2022 CBC W Auto Differential panel - Blood CBC + DIFF Lab Routine Insomnia, unspecified type Expected: 05/07/2022, Expires: 07/07/2022 [facility] Work Phone: Comment on above: Expected: 05/07/2022 , Expires: 07/07/2022 Start: 05-07-2022 End: 07-07-2022 Comprehensive metabolic 2000 panel - Serum or Plasma COMP METABOLIC PANEL Lab Routine Insomnia, unspecified type Expected: 05/07/2022, Expires: 07/07/2022 [facility] Work Phone: Comment on above: Expected: 05/07/2022 , Expires: 07/07/2022 Start: 03-05-2022 End: 05-05-2022 CBC panel - Blood by Automated count CBC Lab Routine Encounter for long-term current use of medication Expected: 03/05/2022, Expires: 05/05/2022 [facility] Work Phone: Comment on above: Expected: 03/05/2022 , Expires: 05/05/2022 Start: 03-05-2022 End: 05-05-2022 Comprehensive metabolic 2000 panel - Serum or Plasma COMP METABOLIC PANEL Lab Routine Encounter for long-term current use of medication Expected: 03/05/2022, Expires: 05/05/2022 [facility] Work Phone: Comment on above: Expected: 03/05/2022 , Expires: 05/05/2022 Start: 02-25-2022 Influenza vaccination C [facility] Start: 2022 Mammography [facility] Start: 2022 Screening for malign ant neoplasm of breast Mammogram Screening [facility] Start: 02-25-2021 Influenza vaccination Flu vaccine (# 1) [facility] Start: 05-19-2016 HEPATITIS B (2 of 3 - Hep B Twinrix 3-dose series) HEPATITIS B (2 of 3 - Hep B Twinrix 3-dose series) [facility] Start: 05-19-2016 Hepatitis B Vaccine (2 of 3 - Hep B Twinrix 3-dose series) Hepatitis B Vaccine (2 of 3 - Hep B Twinrix 3-dose series) [facility] Start: 2001 Urine microalbumin profile DTAP,TDAP,TD (1 - Tdap) [facility] Start: 01-23-1988 PNEUMOCOCCAL (1 - PCV) PNEUMOCOCCAL (1 - PCV) [facility] Start: 01-23-1988 Pneumococcal vaccination Pneumococcal Vaccine (1 - PCV) [facility] Start: 1987 COVID-19 Vaccine (1) COVID-19 Vaccin e (1) [facility] Start: 1982 COVID-19 VACCINE (#1) COVID-19 VACCI NE (#1) [facility] Bacteria identified in Urine by Culture URINE CULTURE Microbiology Routine Dysuria 04/30/2023 9:30 AM EDT [facility] Work Phone: End: 06-25-2023 Bx breast w/device 1st lesion ultrasound guid US BIOPSY BREAST RT Radiology Routine Mass of right breast, unspecified quadrant 1 Occurrences starting 05/26/2022 until 06/25/2023 [facility] Work Phone: Comment on above: 1 Occurrences starti ng 05/26/2022 until 06/25/2023 COVID & INFLUENZA A/ B & RSV NAAT, ROUTINE COVID & INFLUENZA A/B & RSV NAAT, ROUTINE Microbiology Routine Flu-like symptoms URI, acute Ordered: 08/01/2023 [facility] Work Phone: Comment on above: Ordered: 08/01/2023 End: 02-09-2025 DBT Breast - bilateral screening KEYON SCREENING W TERESITA Radiology Routine Encounter for screening mammogram for breast cancer 1 Occurrences starting 01/11/2024 until 02/09/2025 [facility] Work Phone: Comment on above: 1 Occurrences starti ng 01/11/2024 until 02/09/2025 End: 08-08-2025 DBT Breast - bilateral screening KEYON SCREENING W TERESITA Radiology Routine Encounter for screening mammogram for breast cancer 1 Occurrences starting 07/09/2024 until 08/08/2025 [facility] Comment on above: 1 Occurrences starti ng 07/09/2024 until 08/08/2025 End: 06-10-2023 Diagnostic mammography computer-aided detcj bi KEYON DIAGNOSTIC BILAT Radiology Routine Breast pain Mass of lower inner quadrant of right breast 1 Occurrences starting 05/11/2022 until 06/10/2023 [facility] Work Phone: Comment on above: 1 Occurrences starti ng 05/11/2022 until 06/10/2023 End: 06-30-2023 Diagnostic mammography computer-aided detcj bi KEYON DIAGNOSTIC BILAT Radiology Routine Abnormal finding on radiological examination of breast 1 Occurrences starting 05/31/2022 until 06/30/2023 [facility] Work Phone: Comment on above: 1 Occurrences starti ng 05/31/2022 until 06/30/2023 End: 06-06-2023 Diagnostic mammography computer-aided detcj uni KEYON DIAGNOSTIC RT Radiology Routine Breast pain Mass of lower inner quadrant of right breast 1 Occurrences starting 05/07/2022 until 06/06/2023 [facility] Work Phone: Comment on above: 1 Occurrences starti ng 05/07/2022 until 06/06/2023 ECG COMPLETE ECG COMPLETE ECG Routine Tachycardia Ordered: 04/30/2023 [facility] Work Phone: Comment on above: Ordered: 04/30/2023 Hepb vaccine adult 2 dose schedule for im use HEPLISAV B (HEPATITIS B, ADJUVANT, ADULT) Immunization/Injection Routine Encounter for immunization Ordered: 05/07/2022 [facility] Work Phone: Comment on above: Ordered: 05/07/2022 Influenza virus A an d B RNA and SARS-CoV-2 (COVID-19) N gene panel - Respiratory specimen by MARY KAY with probe detection COVID WITH FLUA+B, ROUTINE Microbiology Routine Viral illness 01/20/2022 4:05 PM EDT [facility] Work Phone: Influenza virus A an d B RNA and SARS-CoV-2 (COVID-19) N gene panel - Respiratory specimen by MARY KAY with probe detection COVID WITH FLUA+B, ROUTINE Microbiology Routine Viral URI with cough 09/09/2022 10:51 AM EDT [facility] Work Phone: Influenza virus A an d B RNA and SARS-CoV-2 (COVID-19) N gene panel - Respiratory specimen by MARY KAY with probe detection COVID & INFLUENZA A/B NAAT, ROUTINE Microbiology Routine Acute cough 08/11/2023 9:10 AM EST [facility] Work Phone: End: 03-10-2024 KEYON SCREENING KEYON SCREENING Radiology Routine Encounter for screening mammogram for breast cancer 1 Occurrences starting 02/09/2023 until 03/10/2024 [facility] Work Phone: Comment on above: 1 Occurrences starti ng 02/09/2023 until 03/10/2024 End: 03-08-2025 MR Shoulder - right WO contrast MRI SHOULDER WO IVCON RIGHT Radiology Routine S/P right rotator cuff repair Right shoulder pain, unspecified chronicity 1 Occurrences starting 02/07/2024 until 03/08/2025 [facility] Work Phone: Comment on above: 1 Occurrences starti ng 02/07/2024 until 03/08/2025 End: 03-09-2024 MRI SHOULDER WO/W IVCON RIGHT MRI SHOULDER WO/W IVCON RIGHT Radiology Routine Tear of right glenoid labrum, subsequent encounter Chronic right shoulder pain 1 Occurrences starting 02/08/2023 until 03/09/2024 [facility] Work Phone: Comment on above: 1 Occurrences starti ng 02/08/2023 until 03/09/2024 PAP TEST PAP TEST Lab Rou [facility] Screening for cervical cancer Encounter for screening for human papillomavirus (HPV) Ordered: 07/09/2024 [facility] Work Phone: Comment on above: Ordered: 07/09/2024 End: 12-31-2023 Radex sacrum & coccyx minimum 2 views XR SACRUM/COCCYX 3V AP/LAT Radiology Routine Coccydynia 1 Occurrences starting 12/01/2022 until 12/31/2023 [facility] Work Phone: Comment on above: 1 Occurrences starti ng 12/01/2022 until 12/31/2023 Radex sacrum & coccy x minimum 2 views XR SACRUM/COCCYX 3V AP/LAT Radiology Routine Coccydynia 12/01/2022 2:08 PM EDT [facility] Work Phone: End: 04-02-2023 Screening mammography bi 2-view breast inc cad KEYON SCREENING Radiology Routine Encounter for screening mammogram for breast cancer 1 Occurrences starting 03/03/2022 until 04/02/2023 [facility] Work Phone: Comment on above: 1 Occurrences starti ng 03/03/2022 until 04/02/2023 UA DIP B/O UA DIP B/O Lab R outine Acute cystitis with hematuria Ordered: 04/25/2023 [facility] Work Phone: Comment on above: Ordered: 04/25/2023 End: 06-06-2023 Us breast uni real time with image limited US BREAST LTD RT Radiology Routine Breast pain Mass of lower inner quadrant of right breast 1 Occurrences starting 05/07/2022 until 06/06/2023 [facility] Work Phone: Comment on above: 1 Occurrences starti ng 05/07/2022 until 06/06/2023 End: 06-30-2023 Us breast uni real time with image limited US BREAST LTD RT Radiology Routine Abnormal finding on radiological examination of breast 1 Occurrences starting 05/31/2022 until 06/30/2023 [facility] Work Phone: Comment on above: 1 Occurrences starti ng 05/31/2022 until 06/30/2023 End: 05-25-2024 XR Hand - right PA and Lateral and Oblique XR HAND GENERAL 3V PA/LAT/OBL RIGHT Radiology STAT Pain of right hand 1 Occurrences starting 05/23/2024 until 05/25/2024 [facility] Work Phone: Comment on above: 1 Occurrences starti ng 05/23/2024 until 05/25/2024 End: 10-21-2025 XR HIP BILATERAL 5V PEL/AP/LAT EACH HIP XR HIP BILATERAL 5V PEL/AP/LAT EACH HIP Radiology Routine Right hip pain 1 Occurrences starting 09/21/2024 until 10/21/2025 [facility] Work Phone: Comment on above: 1 Occurrences starti ng 09/21/2024 until 10/21/2025 XR HIP BILATERAL 5V PEL/AP/LAT EACH HIP XR HIP BILATERAL 5V PEL/AP/LAT EACH HIP Radiology Routine Right hip pain 09/21/2024 9:28 AM EDT [facility] Immunizations Immunization Date Immunization Notes Care Provider Fa cili 03-18-2024 tetanus toxoid, reduced diphtheria toxoid, and acellular pertussis vaccine, adsorbed Sam Erin STAIN MAKER.MARKING MACHINE OPERATOR Work Phone: [facility] 04-30-2023 influenza, injectable, quadrivalent, contains preservative Rick Anderson MD Work Phone: [facility] 04-30-2023 pneumococcal (PCV20) vaccine, 20 valent (PREVNAR 20) Rick Anderson MD Work Phone: [facility] 04-30-2023 pneumococcal Conjugate, unspecified formulation Rick Anderson MD Work Phone: [facility] Work Phone: 04-30-2023 influenza virus vaccine, unspecified formulation Sam Erin STAIN MAKER.MARKING MACHINE OPERATOR Work Phone: [facility] 03-15-2022 tetanus toxoid, reduced diphtheria toxoid, and acellular pertussis vaccine, adsorbed Karen Mckee STAIN MAKER.ADVERTISING SALES AGENT Work Phone: [facility] Work Phone: 06-16-2017 influenza virus vaccine, unspecified formulation Sam Erin STAIN MAKER.MARKING MACHINE OPERATOR Work Phone: [facility] 04-21-2016 hepatitis A and hepatitis B vaccine Maile Norman MD Work Phone: [facility] Work Phone: 04-21-2016 hepatitis B vaccine, unspecified formulation Maile Norman MD Work Phone: [facility] 04-10-2009 influenza virus vaccine, unspecified formulation Maile Norman MD Work Phone: [facility] 04-26-2006 influenza virus vaccine, unspecified formulation Maile Norman MD Work Phone: [facility] Work Phone: 01-25-1998 tetanus immune globulin Maile Norman MD Work Phone: [facility] Work Phone: NEGATED: Highlighted row has not occurred!05-07-2022 Hepatitis B vaccine (recombinant), CpG adjuvanted Karen Mckee ADVERTISING SALES AGENT Work Phone: [facility] Work Phone: Comment on above: Deferred: Postponed Payers Date Payer Category Payer Self-pay 2023 Unknown [id number] 2022 Unknown [id number] 2019 Medicaid [place] [employer] [employer] [id number] 2019-Present [phone] [address] [place] [address] Medicaid [id number] 2019 Medicaid [id number] 2019 Unknown [id number] 1982 Unknown [id number] [id number]7 1982 Unknown [id number] 2.16.840.1.757973.3.579.2.627 1982 Unknown [id number] 2.16.840.1.749918.3.579.2.627 Unknown [id number] 2.16.840.1.112282.3.579.2.627 Unknown [id number] 2.16.840.1.231135.3.579.2.627 Unknown [id number] 2.16.840.1.330150.3.579.2.627 Unknown [id number] 2.16.840.1.602244.3.579.2.462 Unknown [id number] 2.16.840.1.913320.3.579.2.462 Unknown [id number] 2.16840.1.257911.3.579.2.462 Unknown [id number] 2.16.840.1.667254.3.579.2.462 Unknown [id number] 2.840.1.331974.3.579.2.462 Unknown [id number] 2.16840.1.037360.3.579.2.462 Unknown [id number] 2.16840.1.727781.3.579.2.462 Unknown [id number] 2.16840.1.415151.3.579.2.462 Unknown [id number] 2.16840.1.124941.3.579.2.462 Unknown [id number] 2.16.840.1.951234.3.579.2.462 Unknown [id number] 2.16840.1.574335.3.579.2.462 Unknown [id number] 2.16.840.1.326398.3.579.2.462 Unknown [id number] 2.16.840.1.462078.3.579.2.462 Unknown [id number] 2.16.840.1.608232.3.579.2.462 Unknown [id number] 2.16840.1.195400.3.579.2.462 Unknown [id number] 2.16.840.1.982613.3.579.2.462 Unknown [id number] 2.16.840.1.634958.3.579.2.462 Unknown [id number] 2.16.840.1.151827.3.579.2.462 Unknown [id number] 2.16.840.1.307997.3.579.2.462 Unknown [id number] 2.16.840.1.013859.3.579.2.462 Unknown [id number] 2.16.840.1.276908.3.579.2.462 Unknown [id number] 2.16.840.1.403908.3.579.2.462 Unknown [id number] 2.16.840.1.361580.3.579.2.462 Unknown [id number] 2.16.840.1.309370.3.579.2.462 Unknown [id number] 2.16.840.1.707258.3.579.2.462 Unknown [id number] 2.16.840.1.384325.3.579.2.462 Unknown [id number] 2.16.840.1.097900.3.579.2.462 Unknown [id number] 2.16.840.1.397459.3.579.2.462 Social History Date Type Detail Facility Start: 05-09-2016 End: 02-16-2024 Tobacco smoking status AKIS Smokes tobacco daily [facility] Start: 05-09-2016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 documented in this encounter [facility] 11-03-2024 Telephone encounter Note Images from the [...] random UDS (urine drug screen). 3. OARRS ([place] Automated Rx Reporting System) reviewed within 7 days prior to the prior authorization request. The [facility] Policy for Medical Necessity [facility] and [place] [facility] Preferred Drug List criteria were reviewed and per [place] Administrative Code Rule 5160-1-01 (C) and (B), [...] might be available through the community. Payer: [facility] Electronic appeal: Not supported View History Notes [...] to its destination. To be filled at: [place] [address] [address] - [phone] [id number] [facility] 11-03-2024 Miscellaneous Notes Images from the original [...] random UDS (urine drug screen). 3. OARRS ([place] Automated Rx Reporting System) reviewed within 7 days prior to the prior authorization request. The [facility] Policy for Medical Necessity as posted on the [facility] website and [place] Un[place] Preferred Drug List criteria were reviewed and per [place] Administrative Code Rule 5160-1-01 (C) and (B), [...] might be available through the community. Payer: [facility] Electronic appeal: Not supported View History Notes [...] to its destination. To be filled at: [place] [address] [address] - [phone] [id number] Electronic PA in process Gabrielle Aguilera MA [facility] Pharmacy calling regarding pt's script for MS Contin 30 mg received today. Pharmacist Prasanth states the medication is being rejected by insurance and a prior authorization is needed. He states he sent information through Cover my Meds. RENE: [id number]. Prior authorization requested for the following medication: Medication: MS Contin 30 mg Provider: Sam Khan CNP Insurance Company Name: [employer] Pharmacy Name: [facility] Telephone number: [phone] Will send this message to PA member for review. Shanon Lowe RN documented in this encounter [facility] 11-02-2024 Telephone encounter Note Electronic PA in process Gabrielle Aguilera MA [facility] 11-02-2024 Telephone encounter Note [facility] Pharmacy calling regarding pt's script for MS Contin 30 mg received today. Pharmacist Prasanth states the medication is being rejected by insurance and a prior authorization is needed. He states he sent information through Cover my Meds. RENE: [id number]. Prior authorization requested for the following medication: Medication: MS Contin 30 mg Provider: Sam Khan CNP Insurance Company Name: [employer] Pharmacy Name: [facility] Telephone number: [phone] Will send this message to PA member for review. Shanon Lowe RN [facility] 11-02-2024 Note [facility] 11-02-2024 History of Present illness Narrative SUBJECTIVE Pat Medina is a 44 year old female here today for a check up on her medical problems. Chief Complaint Patient presents with: Recheck: 3 month follow up. HPI Pat Medina is a 44 year old female. She [...] (around 11/30/2024) for follow up on pain. Sam Khan APRN-LUIS DANIEL documented in this encounter [facility] 10-24-2024 Telephone encounter Note The following approved [...] filling RX while out of the office. [facility] 10-24-2024 Miscellaneous Notes The following approved medication [...] sent to Sam Khan. Patient also sent Regalisterhart msg. Patient has been identified by name [...] Nell Haynes LPN. documented in this encounter [facility] 10-23-2024 Telephone encounter Note Patient calling said she did not need the refill until 10/27. Was told by Dr Norman to call Tuesday to ask for the rx refill, she was not aware PCP is out of the office. Patient requesting note to be sent to Sam Khan. [facility] 10-23-2024 Telephone encounter Note Patient also sent DroneCastg. Patient has been identified by name and [...] Please advise. Thank you. Nell Haynes LPN. [facility] 10-19-2024 Note [facility] 10-17-2024 Telephone encounter Note Patient called requesting the following refill: Percocet Patients last known Refill Date: 10-15-2024. She was in [facility] ER c/o pain as the ER physician, Dr. Duff, called me. She has run out of pain meds. She told him she said no one from office has called her. I told him that is not true. I see she called [facility] Office, not here and I see [...] been 2-1/2 days yet. Patient Phone numbers: [phone] (home) Request is for script(s) to be escript to pharmacy. Alis Kwon [place] P[facility] 10-17-2024 Miscellaneous Notes Patient called requesting the following refill: Percocet Patients last known Refill Date: 10-15-2024. She was in [facility] ER c/o pain as the ER physician, Dr. Duff, called me. She has run out of pain meds. She told him she said no one from office has called her. I told him that is not true. I see she called [facility] Office, not here and I see [...] been 2-1/2 days yet. Patient Phone numbers: [phone] (home) Request is for script(s) to be escript to pharmacy. Alis Kwon Molecular Pathologist Ppg documented in this encounter [facility] 10-17-2024 Telephone encounter Note [facility] called into the [place] office in concern of this pt They state that the pt is currently in the ED in regards to her pain... The lady calling from the ED states that since the pt recently had surgery Dr. Miller is wanting to touch base with Dr. Valencia before he takes any further steps I informed [facility] that Dr. Valencia is in surgery in [place] right now but I gave them Alis's phone number- so that the ED could potentially reach Dr. Valencia sooner Please give the ED a call back at [phone] Sangeetha Ricks [facility] 10-17-2024 Miscellaneous Notes [facility] called into the [place] [facility] in concern of this pt They state that the pt is currently in the ED in regards to her pain... The lady calling from the ED states that since the pt recently had surgery Dr. Miller is wanting to touch base with Dr. Valencia before he takes any further steps I informed [facility] that Dr. Valencia is in surgery in [place] right now but I gave them Alis's phone number- so that the ED could potentially reach Dr. Valencia sooner Please give the ED a call back at [phone] Sangeetha Ricks She should have had oxycodone [...] 2024 8:03 AM documented in this encounter [facility] 10-17-2024 Telephone encounter Note She should have had oxycodone AND percocet on 10/15. She has called 4 times already crying that she has no pain meds and is in severe pain You dont care that I'm in pain [facility] 10-17-2024 Telephone encounter Note Patient is calling in stating they are in a lot of pain and ran out of pain medication in the middle of the night. [facility] 10-17-2024 Telephone encounter Note Prescription Refill Information [...] Nory Godinez October 17, 2024 8:03 AM [facility] 10-15-2024 Note Addended by: LAURA MARTIN on: 10/15/2024 02:24 PM Modules accepted: Orders [facility] 10-15-2024 Miscellaneous Notes Addended by: LAURA MARTIN on: 10/15/2024 02:24 PM Modules accepted: Orders [...] 2024 10:04 AM documented in this encounter [facility] 10-15-2024 Note Addended by: YESENIA KELLY on: 10/15/2024 02:04 PM Modules accepted: Orders [facility] 10-15-2024 Telephone encounter Note Patient called back [...] Regardless, she is asking for nausea today [facility] 10-15-2024 Telephone encounter Note Prescription Refill Information [...] Julia Kaur October 15, 2024 10:04 AM T [facility] 10-14-2024 Note [facility] 10-14-2024 History of Present illness Narrative Patient [...] Stuart Haynes MD documented in this encounter [facility] 10-12-2024 Note HNO ID: [id number] Author: RAMSEY HANDY APRN.CRNA Service: Anesthesiology Author Type: Nurse Gas Plant Specialist Type: Anesthesia Procedure Notes Filed: 10/12/2024 14:54 Note Text: ANESTHESIOLOGY PROCEDURE NOTE Airway General Information Procedure Start Time/Medication Administration: 10/12/2024 2:40 PM Procedure End Time: 10/12/2024 2:40 PM Patient location during procedure: OR Timeout Performed Pre-procedure: timeout performed Consent Obtained: Yes Patient identity confirmed: arm band and patient Staffing Performed by: ROUTE DELIVERY SERVICE DRIVER Indications and Patient Condition Indications for airway [...] Easy atraumatic x 1 SIGNATURE: Ramsey Handy APRN.ROUTE DELIVERY SERVICE DRIVER PATIENT NAME: Pat Medina DATE: October 12, 2024 TIME: 2:54 PM CSN: [id number] [facility] 10-12-2024 Note HNO ID: [id number] Author: ZACHERY SANCHEZ RN Service: ? Author Type: Registered Nurse Type: Nursing Progress Note Filed: 10/12/2024 14:10 Note Text: Dr amezcua notified pt feels like her right eye is red and swollen, and her throat feels scratchy [facility] 10-12-2024 Note HNO ID: [id number] Author: CARIN AMEZCUA MD Service: Anesthesiology Author [...] SIGNATURE: Carin Amezcua MD PATIENT NAME: Pat Medina DATE: October 12, 2024 TIME: 12:46 PM CSN: [id number] [facility] 10-01-2024 Telephone encounter Note Prescription Refill Information [...] Simpson LPN October 01, 2024 9:41 AM [facility] 10-01-2024 Miscellaneous Notes Prescription Refill Information The [...] 2024 9:41 AM documented in this encounter [facility] 09-29-2024 Telephone encounter Note The following approved [...] Made so RX lasts till surgery date. [facility] 09-29-2024 Miscellaneous Notes The following approved medication [...] previous nurse forward message from Sam Khan Computational Physicist to Dr Norman when she found out [...] Violeta Howard RN documented in this encounter [facility] 09-28-2024 Telephone encounter Note Reason for Call: Patient is requesting refill of percocet and Xanax Outcome: NOC is unable to refill narcotics, recommend patient contact PCP Tuesday to follow up with the refills requested . For severe pain, go to the ED for evaluation and treatment [facility] 09-28-2024 Miscellaneous Notes Reason for Call: Patient is requesting refill of percocet and Xanax Outcome: NOC is unable to refill narcotics, recommend patient contact PCP Tuesday to follow up with the refills requested . For severe pain, go to the ED for evaluation and treatment documented in this encounter [facility] 09-28-2024 Telephone encounter Note Please reach out and assist patient in scheduling post-op physical therapy. She is having surgery 10-12-2024. She should be seen in therapy approximately 1 week post-op. She would like to go to [place]. Thank you. Charles Stanton [facility] 09-28-2024 Miscellaneous Notes Please reach out and assist patient in scheduling post-op physical therapy. She is having surgery 10-12-2024. She should be seen in therapy approximately 1 week post-op. She would like to go to [place]. Thank you. Charles Stanton documented in this encounter [facility] 09-28-2024 History and physical note Images from [...] large neck Non-male patient STOP-Bang Score: 1 [id number] Score: Age: <65 Sex: female CHF history: No Hypertension history: No Stroke/TIA/thromboembolism history: No Vascular disease history: No Diabetes history: No [id number] Score: 1 ARISCAT Score: Age: <=50 Preoperative [...] in this encounter. REASON FOR VISIT: Pat Medina is a 44 year old female who [...] exists. CHIEF COMPLAINT: Pre-op exam HPI: Pat Medina is a 44 year old seen for [...] Positive for: headaches. Negative for: cerebral palsy, ADVERTISING SALES AGENT tumor, dementia, impaired sensorium, multiple sclerosis, Parkinson's disease, peripheral neuropathy, seizures, TIA and strokes. Respiratory: Positive for: tobacco use (1ppd). Negative for: asthma, COPD, current cough, dyspnea, pneumonia within 6 weeks, URI < 2 weeks and obstructive sleep apnea. Cardiovascular: No history of HTN requiring medication, no history of angina, CHF, PA, cardiac surgery or stents. Denies rest pain, [...] > 1 time per night or hematuria. PIPE THREADER: Negative for abnormal vaginal bleeding, abnormal vaginal [...] Anxiety Congestive heart failure (HCC) during . Legal Support Specialist took her off meds. No issues [...] & curettage,TAB ESOPHAGOGASTRODUODENOSCOPY TRANSORAL DIAGNOSTIC 11/01/2011 EGD [facility] inpt H-pylori negative LIG/TRNSXJ FLP TUBE ABDL/VAG APPR UNI/BI 04/09/2006 Tubal ligation MYRINGOTOMY ASPIR&/EUSTACHIAN TUBE NFLTJ ANES 06/27/1994 Myringotomy/tubes OOPHORECTOMY PARTIAL/TOTAL UNI/BI left REPAIR ROTATOR CUFF,ACUTE Right 2023 TONSILLECTOMY PRIMARY/SECONDARY Tonsillectomy FAMILY HISTORY Problem Relation Age of Onset Psychiatry Mother DEPRESSION Hypertension Father Cervical Cancer Maternal Grandmother Hypertension Maternal Grandmother Cancer Maternal Grandfather BLADDER Heart Maternal Grandfather PA & EMPHYSEMA Social History Tobacco Use Smoking [...] or any previous visit (from the past 24719 hours). Instructions Given to Patient: Instructions located in the after visit summary. Patient given verbal and written preop instructions and voices comprehension and compliance. SIGNATURE: Sharmin Quinteros APRN.MARKING MACHINE OPERATOR PATIENT NAME: Pat Medina DATE: September 28, 2024 TIME: 9:10 AM PAGER/CONTACT #: [facility] 09-28-2024 History and physical note Images from [...] large neck Non-male patient STOP-Bang Score: 1 [id number] Score: Age: <65 Sex: female CHF history: No Hypertension history: No Stroke/TIA/thromboembolism history: No Vascular disease history: No Diabetes history: No [id number] Score: 1 ARISCAT Score: Age: <=50 Preoperative [...] in this encounter. REASON FOR VISIT: Pat Medina is a 44 year old female who [...] exists. CHIEF COMPLAINT: Pre-op exam HPI: Pat Medina is a 44 year old seen for [...] Positive for: headaches. Negative for: cerebral palsy, ADVERTISING SALES AGENT tumor, dementia, impaired sensorium, multiple sclerosis, Parkinson's disease, peripheral neuropathy, seizures, TIA and strokes. Respiratory: Positive for: tobacco use (1ppd). Negative for: asthma, COPD, current cough, dyspnea, pneumonia within 6 weeks, URI < 2 weeks and obstructive sleep apnea. Cardiovascular: No history of HTN requiring medication, no history of angina, CHF, PA, cardiac surgery or stents. Denies rest pain, [...] > 1 time per night or hematuria. PIPE THREADER: Negative for abnormal vaginal bleeding, abnormal vaginal [...] Anxiety Congestive heart failure (HCC) during . Legal Support Specialist took her off meds. No issues [...] & curettage,TAB ESOPHAGOGASTRODUODENOSCOPY TRANSORAL DIAGNOSTIC 11/01/2011 EGD [facility] inpt H-pylori negative LIG/TRNSXJ FLP TUBE ABDL/VAG APPR UNI/BI 04/09/2006 Tubal ligation MYRINGOTOMY ASPIR&/EUSTACHIAN TUBE NFLTJ ANES 06/27/1994 Myringotomy/tubes OOPHORECTOMY PARTIAL/TOTAL UNI/BI left REPAIR ROTATOR CUFF,ACUTE Right 2023 TONSILLECTOMY PRIMARY/SECONDARY <AGE 12 06/27/1987 Tonsillectomy FAMILY HISTORY Problem Relation Age of Onset Psychiatry Mother DEPRESSION Hypertension Father Cervical Cancer Maternal Grandmother Hypertension Maternal Grandmother Cancer Maternal Grandfather BLADDER Heart Maternal Grandfather PA & EMPHYSEMA Social History Tobacco Use Smoking [...] or any previous visit (from the past 71097 hours). Instructions Given to Patient: Instructions located in the after visit summary. Patient given verbal and written preop instructions and voices comprehension and compliance. SIGNATURE: Sharmin Quinteros APRN.CNP PATIENT NAME: Pat Medina DATE: September 28, 2024 TIME: 9:10 AM PAGER/CONTACT #: documented in this encounter [facility] 09-28-2024 Instructions Sharmin Quinteros APRN.CNP - 09/28/2024 9:09 AM EDT Images from the original note were not included. [facility] PATIENT PREOPERATIVE INSTRUCTIONS Louis Valencia,* has scheduled you for your procedure at this surgery center: [facility]: [phone] -- [address] [facility] [address]. Please read below carefully for your personalized [...] office. If you are currently using a [id number] injectable or oral medication for diabetes or [...] Procedures: - YOU MUST HAVE A RESPONSIBLE HELPER [employer] TAKE YOU HOME. A EXHAUST EQUIPMENT OPERATOR OR MEDICAL AND SCIENTIFIC ILLUSTRATOR CANNOT BE MADE A RESPONSIBLE HELPER [employer]. - We recommend that a responsible person [...] Advance Directive, please fax a copy to [phone] or email to for it to be [...] Quinteros APRN.LUIS DANIEL documented in this encounter [facility] 09-27-2024 Telephone encounter Note Pt called in checking on medication refills. I let her know that Dr Norman is out of the office on . She had previous nurse forward message from Sam Khan Np to Dr Norman when she found out she was off. I let her know she sent I to the provider. [facility] 09-27-2024 Telephone encounter Note Patient calls to [...] Dr. Norman as requested. Violeta Howard RN [facility] 09-21-2024 History of Present illness Narrative Radiology Service Progress Note PATIENT NAME: Pat Medina DATE OF SERVICE: September 21, 2024 TIME: [...] PATIENT PRESENTS WITH AN IMPLANTABLE OR ATTACHED NITRATE OPERATOR: No RADIOLOGY DEPARTMENT: General X-ray: Exam(s) Completed: Pelvis X-Ray: Pelvis with Hip Bilateral PERIPHERAL IV DATA: Not applicable SIGNED BY: RT Verónica(R) September 21, 2024 9:17 AM documented in this encounter [facility] 09-21-2024 Note [facility] 09-21-2024 Note [facility] 09-21-2024 History of Present illness Narrative Images from the original note were not included. SUBJECTIVE Pat Medina is a 44 year old female here [...] The patient consented to the use of ambient AI software for draft documentation of the visit consistent with [facility] s Notice of Privacy Practices. Her medications [...] Khan APRN-LUIS DANIEL documented in this encounter [facility] 09-14-2024 Note [facility] 09-14-2024 History of Present illness Narrative Images [...] Ricardo (pain) - Pain with Speed and Obion testing - Pain with Belly Press test [...] with the treatment plan. SURGICAL PLAN: Pat Medina presents today with persistent right shoulder pain [...] & Elbow Surgeon Department of Orthopaedic Surgery [place] documented in this encounter [facility] 09-13-2024 Telephone encounter Note The following approved medication requests have been transmitted electronically. Requested Prescriptions Signed Prescriptions Disp Refills oxyCODONE-acetaminophen (PERCOCET) 5-325 mg tablet 56 tablet 0 Sig: Take 1 tablet by mouth every 6 hours as needed for pain for up to 14 days. Patient should start on September 17, 2024. Authorizing Provider: MAILE NORMAN MD [facility] 09-13-2024 Miscellaneous Notes The following approved medication [...] 2024 7:40 AM documented in this encounter [facility] 09-13-2024 Telephone encounter Note Prescription Refill Information [...] MALENA Diaz September 13, 2024 7:40 AM [facility] 08-31-2024 Telephone encounter Note The following approved [...] 03, 2024. Authorizing Provider: MAILE NORMAN MD [facility] 08-31-2024 Miscellaneous Notes The following approved medication requests have been transmitted electronically. Requested Prescriptions Signed Prescriptions Disp Refills oxyCODONE-acetaminophen (PERCOCET) 5-325 mg tablet 56 tablet 0 Sig: Take 1 tablet by mouth every 6 hours as needed for pain for up to 14 days. May fill today due to needing to leave [facility] for family emergency Patient should start on [...] Nell Haynes LPN. documented in this encounter [facility] 08-30-2024 Telephone encounter Note Patient has been identified by name and date of : Yes Patient phones for refill(s): Requested Prescriptions Pending Prescriptions Disp Refills oxyCODONE-acetaminophen (PERCOCET) 5-325 mg tablet 56 tablet 0 Sig: Take 1 tablet by mouth every 6 hours as needed for pain for up to 14 days. May fill today due to needing to leave [facility] for family emergency Patient should start on September 03, 2024. Date of last office visit in primary care: 07/31/2024 Date of next office visit in primary care: 11/02/2024 Please advise. Thank you. Nell Haynes LPN. [facility] 08-20-2024 Telephone encounter Note Addressed in another encounter dated 08/18/24. [facility] 08-20-2024 Miscellaneous Notes Addressed in another encounter dated 08/18/24. Patient is calling to speak to clinical about pain medication. Patient is leaving Tuesday at 5:00 am, and states refill is not due until Tuesday. She is asking to have it filled prior. Please call patient today. documented in this encounter [facility] 08-20-2024 Telephone encounter Note PATIENT NOTIFIED OF SAME. [facility] 08-20-2024 Miscellaneous Notes PATIENT NOTIFIED OF SAME. [...] in law is in the hospital in [place]. Patient is asking for the Percocet rx [...] fly out tomorrow morning to go to [place], her mother in law is not doing well. Patient uses [facility] for her pharmacy. Would need approval put on the rx to have pharmacy fill rx today. Please advise documented in this encounter [facility] 08-20-2024 Telephone encounter Note Below noted The [...] family emergency Authorizing Provider: MAILE NORMAN MD [facility] 08-20-2024 Telephone encounter Note Patient calling back and states that she needs this done because he already postponed her flight once because she did not get her pain medications. Patient states that pain medications are due tomorrow but pharmacy will fill prescription if provider ok refill early. Gertrude Ortiz RN [facility] 08-20-2024 Telephone encounter Note Patient calling she postponed her flight from yesterday to this evening. Patient said her mother in law is in the hospital in [place]. Patient is asking for the Percocet rx for today and to be able to fill it today please. Please notify patient when rx is sent to the pharmacy. Please advise [facility] 08-18-2024 Telephone encounter Note Patient calling regarding Needing a refill of her pain medication before she leaves the area.. Conferenced to [facility] hot metal crane operator, [place], to speak with provider ultrasonic hand solderer for [facility]. [facility] 08-18-2024 Miscellaneous Notes Patient calling regarding Needing a refill of her pain medication before she leaves the area.. Conferenced to [facility] hot metal crane operator, Bonita, to speak with provider ultrasonic hand solderer for [facility]. documented in this encounter [facility] 08-18-2024 Telephone encounter Note Patient calling with [...] have any questions, you can call Nurse corrections lieutenant back. [facility] 08-18-2024 Miscellaneous Notes Patient calling with request [...] have any questions, you can call Nurse corrections lieutenant back. documented in this encounter [facility] 08-18-2024 Telephone encounter Note Patient calling asking if PCP could give her Percocet rx to be filled today, is due to be refilled on Tuesday. Patient said she has family emergency and needs to fly out tomorrow morning to go to [place], her mother in law is not doing well. Patient uses [facility] for her pharmacy. Would need approval put on the rx to have pharmacy fill rx today. Please advise [facility] 08-18-2024 Telephone encounter Note Patient is calling to speak to clinical about pain medication. Patient is leaving Tuesday morning at 5:00 am, and states refill is not due until Tuesday. She is asking to have it filled prior. Please call patient today. [facility] Work Phone: 08-08-2024 Telephone encounter Note Encoding Clerk request faxed/scanned in osbaldo luda Snell. ^^^^^^^^^^^^^^^^^^^^ Patient called in inquiring about the letter she brought in at her appointment when she saw Dr. Valencia at her appointment in May,. (This letter has been scanned into her chart). Per Dr. Valencia he did answer the questions in his dictation and this will be forwarded to her deputy commonwealth's attorney's office by his receptionist secretary. I left a message for the patient to call back with any additional questions or concerns about the cortisone injection she received. She did stated that she was still having some pain. Charles Stanton [facility] 08-08-2024 Miscellaneous Notes Encoding Clerk request faxed/scanned in osbaldo Snell. ^^^^^^^^^^^^^^^^^^^^ Patient called in inquiring about the letter she brought in at her appointment when she saw Dr. Valencia at her appointment in May,. (This letter has been scanned into her chart). Per Dr. Valencia he did answer the questions in his dictation and this will be forwarded to her deputy commonwealth's attorney's office by his receptionist secretary. I left a message for the patient to call back with any additional questions or concerns about the cortisone injection she received. She did stated that she was still having some pain. Charles Barbetta [facility] documented in this encounter [facility] 08-04-2024 Telephone encounter Note The following approved medication requests have been transmitted electronically. Requested Prescriptions Signed Prescriptions Disp Refills oxyCODONE-acetaminophen (PERCOCET) 5-325 mg tablet 56 tablet 0 Sig: Take 1 tablet by mouth every 6 hours as needed for pain for up to 14 days. Patient should start on August 07, 2024. Authorizing Provider: MAILE NORMAN MD [facility] 08-04-2024 Miscellaneous Notes The following approved medication [...] 2024 7:45 AM documented in this encounter [facility] 08-03-2024 Note [facility] 08-03-2024 History of Present illness Narrative Associated Order(s): Large Joint Arthro/Inj: R shoulder joint Post-Procedure Diagnose(s): Right shoulder pain, unspecified chronicity; S/P right rotator cuff repair PAIN EVALUATION 07/27/2024 1413 Pain Location: Shoulder-Right Intervention/Comfort measure: Imagery Encounter Diagnosis ICD-10-CM 1. Right shoulder pain, unspecified chronicity M25.511 2. S/P right rotator cuff repair Z98.890 Pat Medina returns to review the results of the [...] & Elbow Surgeon Department of Orthopaedic Surgery [place] documented in this encounter [facility] 08-03-2024 Telephone encounter Note The patient has [...] Minaya LPN August 03, 2024 7:45 AM [facility] 07-31-2024 Instructions Maile Norman MD - 07/31/2024 [...] needed for headache relief; these are available [id number]. - Continue taking Oxycodone as needed for [...] ensure they are addressed. - Consider exploring [employer] for additional support and resources. - Next follow-up appointment in 3 months. documented in this encounter [facility] 07-31-2024 Note [facility] 07-31-2024 History of Present illness Narrative This note was created using Visual [employer]. Subjective Pat Medina is a 44 year old female. Patient presents with: F/U 3 Month SUBJECTIVE: Pat Medina is a 44 year old year old lady here today for 3 month follow up appointment for review of medical conditions. Pat Medina is a 44-year-old female with a history [...] her counselor and has recently started attending roman cath[employer], which she finds helpful. Pat is currently [...] Anxiety Congestive heart failure (HCC) during . Legal Support Specialist took her off meds. No issues [...] the date of the service which included [id number] patient care, completing clinical documentation, obtaining and/or reviewing separately obtained history, performing a medically appropriate examination, counseling and educating the patient/family/caregiver, and ordering medications, tests, or procedures. Maile Norman MD documented in this encounter [facility] 07-20-2024 Telephone encounter Note The following approved medication requests have been transmitted electronically. Requested Prescriptions Signed Prescriptions Disp Refills oxyCODONE-acetaminophen (PERCOCET) 5-325 mg tablet 56 tablet 0 Sig: Take 1 tablet by mouth every 6 hours as needed for pain for up to 14 days. Patient should start on July 24, 2024. Authorizing Provider: MAILE NORMAN MD [facility] 07-20-2024 Miscellaneous Notes The following approved medication [...] 2024 8:44 AM documented in this encounter [facility] 07-20-2024 Telephone encounter Note The patient has [...] Minaya LPN July 20, 2024 8:44 AM [facility] 07-19-2024 Note [facility] Medical Records Department [address] [place] [id number] History Physical Exam 07/19/24 1124 MR#: [id number] Acct: [id number] Name: PAT MEDINA Rep #: [id number] : 1980 44 From: Constanza Cordova MD PCP: Dr. Maile Norman MD Status:[facility] Location: [address] History and Physical Date of Admission: 07/19/24 [...] Norman MD; Dr. Constanza Cordova MD Signed [facility] 07-16-2024 Telephone encounter Note Form and office note has been faxed to number below. [facility] 07-16-2024 Miscellaneous Notes Form and office note has been faxed to number below. Ok will send today. Nguyen with [facility] with Dr Cordova called in and reports Pt had an appointment with Karen Mckee on 07/13/24. She states Pt brought in medical clearance form for provider to fill out. They need the medical clearance form and OV note from 07/13 faxed over to # [phone]. She is asking if this can be done today as the Pt has surgery on . Otilia Douglas RN documented in this encounter [facility] 07-16-2024 Telephone encounter Note Ok will send today. [facility] 07-16-2024 Telephone encounter Note Nguyen with [facility] with Dr Cordova called in and reports Pt had an appointment with Karen Mckee on 07/13/24. She states Pt brought in medical clearance form for provider to fill out. They need the medical clearance form and OV note from 07/13 faxed over to # [phone]. She is asking if this can be done today as the Pt has surgery on . Otilia Douglas RN [facility] 07-13-2024 History of Present illness Narrative SUBJECTIVE: Hepatitis B Vaccine(2 of 3 - Hep B Twinrix 3-dose series) due on 05/19/2016 Mammogram Screening Never done Cervical Cancer Screening due on 09/28/2022 HPI Pat Medina is a 44year old female. PMH significnat [...] plastic surgery with Dr. Constanza Cordova at [facility] with date to be determined following this [...] up with cardiology for about 6 months, [facility] to resolution. No recurrence. No history of PA or CVA. No shortness of breath on [...] Anxiety Congestive heart failure (HCC) during . Legal Support Specialist took her off meds. No issues [...] AND DIFFERENTIAL - COMPREHENSIVE METABOLIC PANEL Karen Mckee APRN.CNS Medical Decision Making: Problems: Moderate: 2+ stable chronic illnesses Data: Unique test(s) ordered: 2 Risk: Moderate: Decision on minor surgery w/ risk factors Medical Decision Making Level: 4 - Moderate documented in this encounter [facility] 07-13-2024 Note [facility] 07-11-2024 History of Present illness Narrative Rescheduled documented in this encounter [facility] 07-11-2024 Note HNO ID: [id number] Author: MAILE NORMAN MD Service: ? Author Type: Physician Type: Progress Notes Filed: 08/16/2024 22:36 Note Text: Rescheduled [facility] 07-09-2024 Note [facility] 07-09-2024 History of Present illness Narrative Computer Support Technician offered: Patient declinesPrince Stewart is a 44 year old who presents for an annual gynecologic exam with complaints, vaginal dryness and pain with intercourse. Still get period: No LMP: 05/07/2009 Menses: Ablation Sexually active: Yes Contraception: Tubal Ligation HPV vaccine: No HPV:negative Last pap smear: 2017 ASCUS History of abnormal pap: Yes Bothersome pelvic pain: No Last mammogram: 2024 today OB History T2 L2 SAB2 IAB1 Ectopic0 Multiple0 Live Births2 Board Member History LMP: 05/07/2009, Ablation Age at Menarche: Age at First : Age at Menopause: Board Member History Comments: Sexual Activity: Yes; Male Contraception: Surgical, Tubal Ligation PAST MEDICAL HISTORY Diagnosis Date Abdominal pain, unspecified site Abnormal glandular Papanicolaou smear of cervix 04/08/2006 Abn. 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 Legal Support Specialist took her off meds. No issues [...] Cancer Maternal Grandfather BLADDER Heart Maternal Grandfather PA & EMPHYSEMA SOCIAL HISTORY Social History Tobacco [...] discussed with the Patient or Patient's Authorized Etl Application Developer. As applicable, any other physician, advance practice provider, medical student, or other health professional student that will be observing or involved in the sensitive examination for educational or training purposes was discussed with the Patient or Authorized Etl Application Developer. The Patient or Authorized Etl Application Developer has agreed to proceed with the sensitive [...] external genitalia normal, normal Bartholin's glands, urethra, Burbank's glands, no vulvar lesions, no cervical lesions, [...] FOLLICLE STIMULATING HORMONE - ESTRADIOL-17B BLD Cecile Patricia APRN.MARKING MACHINE OPERATOR documented in this encounter [facility] 07-07-2024 Telephone encounter Note Pt notified and voiced understanding. Adelina Porras MA [facility] 07-07-2024 Miscellaneous Notes Pt notified and voiced understanding. Adelina Porras MA I am not able to do that as the ultrasonic hand solderer doctor. Jorge Luis Ace MD Pt called in and reports her mother in law in [place], [place] just had a heart attack. She states her and he are going down there after he gets done with work [email or web address]. She states she is going to try and get her into a intermediate up here. She states provider put in to have her Percocet refilled on Tue07/10/24. She is asking if provider would allow her to get it filled early. I told her another provider may not, and they could call it into as pharmacy where she goes to. Please call and advise. documented in this encounter [facility] 07-07-2024 Telephone encounter Note I am not able to do that as the ultrasonic hand solderer doctor. Jorge Luis Ace MD [facility] Work Phone: 07-07-2024 Telephone encounter Note Pt called in and reports her mother in law in [place], [place] just had a heart attack. She states her and he are going down there after he gets done with work tonight. She states she is going to try and get her into a intermediate up here. She states provider put in to have her Percocet refilled on Tue07/10/24. She is asking if provider would allow her to get it filled early. I told her another provider may not, and they could call it into as pharmacy where she goes to. Please call and advise. [facility] 07-06-2024 Telephone encounter Note RX filled 06/26 [...] 10, 2024. Authorizing Provider: MAILE NORMAN MD [facility] 07-06-2024 Miscellaneous Notes RX filled 06/26 per [...] Zara Jay LPN documented in this encounter [facility] 07-06-2024 Telephone encounter Note Last script filled on 06/23/2024. Pended Zara Jay LPN [facility] 07-02-2024 Telephone encounter Note Prescription Refill Information [...] Walton LPN July 02, 2024 2:19 PM [facility] 07-02-2024 Miscellaneous Notes Prescription Refill Information The [...] 2024 2:19 PM documented in this encounter [facility] 06-23-2024 Telephone encounter Note The following approved medication requests have been transmitted electronically. Requested Prescriptions Signed Prescriptions Disp Refills oxyCODONE-acetaminophen (PERCOCET) 5-325 mg tablet 56 tablet 0 Sig: Take 1 tablet by mouth every 6 hours as needed for pain for up to 14 days. Patient should start on June 26, 2024. Authorizing Provider: MAILE NORMAN MD [facility] 06-23-2024 Miscellaneous Notes The following approved medication [...] 2024 3:23 PM documented in this encounter [facility] 06-23-2024 Telephone encounter Note The following approved medication requests have been transmitted electronically. Requested Prescriptions Pending Prescriptions Disp Refills meloxicam (MOBIC) 15 mg tablet 30 tablet 5 Sig: Take 1 tablet by mouth once daily. With food. Maile Norman MD [facility] 06-23-2024 Miscellaneous Notes The following approved medication [...] 2024 3:24 PM documented in this encounter [facility] 06-22-2024 Telephone encounter Note Prescription Refill Information [...] Simpson LPN June 22, 2024 3:24 PM [facility] 06-22-2024 Telephone encounter Note Prescription Refill Information [...] Simpson LPN June 22, 2024 3:23 PM [facility] 06-15-2024 History of Present illness Narrative Radiology Service Progress Note PATIENT NAME: Pat Medina DATE OF SERVICE: June 15, 2024 TIME: [...] PATIENT PRESENTS WITH AN IMPLANTABLE OR ATTACHED NITRATE OPERATOR: No RADIOLOGY DEPARTMENT: MR; Exam(s) Completed: Upper MSK: Shoulder, right PERIPHERAL IV DATA: Not applicable SIGNED BY: RT Krys(Marcos) June 15, 2024 1:08 PM documented in this encounter [facility] 06-15-2024 Note [facility] 06-10-2024 Telephone encounter Note The following approved medication requests have been transmitted electronically. Requested Prescriptions Signed Prescriptions Disp Refills oxyCODONE-acetaminophen (PERCOCET) 5-325 mg tablet 56 tablet 0 Sig: Take 1 tablet by mouth every 6 hours as needed for pain for up to 14 days. Patient should start on June 12, 2024. Authorizing Provider: MAILE NORMAN MD [facility] 06-10-2024 Miscellaneous Notes The following approved medication [...] 2024 9:06 AM documented in this encounter [facility] 06-08-2024 Telephone encounter Note The patient has [...] Minaya LPN June 08, 2024 9:06 AM [facility] 06-05-2024 Telephone encounter Note Patient calling asking to have General surgery consult faxed to [facility] at [phone]. Printed face sheet, xray report, office notes, consult and faxed as requested. [facility] 06-05-2024 Miscellaneous Notes Patient calling asking to have General surgery consult faxed to [facility] at [phone]. Printed face sheet, xray report, office notes, consult and faxed as requested. documented in this encounter [facility] 05-29-2024 Telephone encounter Note Images from the original note were not included. Doyle Molecular Pathologist Alis Espinosa to [facility] 05/29/24 1:17 PM If patient called your office then please return the call. Next time, just have patient call [place] [facility] or have them contact [facility] PreAccess Dept if you don't want to address patient's question because they have not been seen at [place] office. Thank you Called and spoke with the patient. Explained to the patient that because all information about her claim and appointments has not come to the [place] office we were unable to assist her when she called earlier. Told her that a message has been sent over to Lizette Villasenor PA-C and Alis regarding her call from earlier. Patient stated her and her deputy commonwealth's attorney have left multiple messages at 's [place] office. Gave her the number for Alis ('s [facility]), the number for the [facility] Pre-Access 3rd libertarian per the message above from Alis, and the number for the ombudsman. [facility] 05-29-2024 Miscellaneous Notes Images from the original note were not included. [facility] Molecular Pathologist Alis Espinosa to [facility] 05/29/24 1:17 PM If patient called your office then please return the call. Next time, just have patient call [place] [facility] or have them contact [facility] PreAccess Dept if you don't want to address patient's question because they have not been seen at [place] office. Thank you Called and spoke with the patient. Explained to the patient that because all information about her claim and appointments has not come to the [place] office we were unable to assist her when she called earlier. Told her that a message has been sent over to Lizette Villasenor PA-C and Alis regarding her call from earlier. Patient stated her and her deputy commonwealth's attorney have left multiple messages at 's [place] office. Gave her the number for Alis ('s [facility] the number for the [facility] Pre-Access 3rd libertarian per the message above from Alis, and the number for the ombudsman. Routing to 's [place] for [place] where patient has been seen exclusively. Closing encounter for [place] Team. Patient called stating she needs a letter from Dr Valencia stating why a rotator cuff tear and bicep tendonitis would not show up on an MRI for a court date she had on 05/31/2024. Her deputy commonwealth's attorney needs this letter SIM. Fax number for deputy commonwealth's attorney's office is [phone] Patient calling She was inquiring about a ltter her river expedition guide had sent Per pt, Dr Valencia agreed to relate her rotator cuff tear to her work injury for the C9 She has court on May 31 and she needs a letter written by May 30 She states she did call Alis at the [place] office and left a message Please advise documented in this encounter [facility] 05-29-2024 Telephone encounter Note Routing to 's [place] for [place] where patient has been seen exclusively. Closing encounter for [place] Team. [facility] 05-29-2024 Telephone encounter Note Patient called stating she needs a letter from Dr Valencia stating why a rotator cuff tear and bicep tendonitis would not show up on an MRI for a court date she had on 05/31/2024. Her deputy commonwealth's attorney needs this letter SIM. Fax number for deputy commonwealth's attorney's office is [phone] [facility] 05-29-2024 Telephone encounter Note Patient calling She was inquiring about a ltter her river expedition guide had sent Per pt, Dr Valencia agreed to relate her rotator cuff tear to her work injury for the C9 She has court on May 31 and she needs a letter written by May 30 She states she did call Alis at the [place] office and left a message Please advise [facility] 05-28-2024 Telephone encounter Note The following approved medication requests have been transmitted electronically. Requested Prescriptions Signed Prescriptions Disp Refills oxyCODONE-acetaminophen (PERCOCET) 5-325 mg tablet 56 tablet 0 Sig: Take 1 tablet by mouth every 6 hours as needed for pain for up to 14 days. Patient should start on May 29, 2024. Authorizing Provider: MAILE NORMAN MD [facility] 05-28-2024 Miscellaneous Notes The following approved medication [...] she needs refill by tomorrow. Last ov w/Computational Physicist: 05-15-24 Next ov w/pcp: 07-31-24 documented in this encounter [facility] 05-28-2024 Telephone encounter Note Prescription Refill Information [...] Walton LPN May 28, 2024 4:32 PM [facility] 05-28-2024 Telephone encounter Note Patient reports she needs refill by tomorrow. Last ov w/Computational Physicist: 05-15-24 Next ov w/pcp: 07-31-24 [facility] 05-25-2024 Telephone encounter Note Patient was notified Gabrielle Aguilera MA [facility] 05-25-2024 Miscellaneous Notes Patient was notified Gabrielle Aguilera MA Please inform patient that an x-ray is negative. Follow-up with PCP if symptoms are not improving. Galo Bernal APRN.LUIS DANIEL documented in this encounter [facility] 05-25-2024 Telephone encounter Note Please inform patient that an x-ray is negative. Follow-up with PCP if symptoms are not improving. Galo Bernal APRN.MARKING MACHINE OPERATOR [facility] 05-25-2024 History of Present illness Narrative Radiology Service Progress Note PATIENT NAME: Pat Medina DATE OF SERVICE: May 25, 2024 TIME: [...] PATIENT PRESENTS WITH AN IMPLANTABLE OR ATTACHED NITRATE OPERATOR: No RADIOLOGY DEPARTMENT: General X-ray: Exam(s) Completed: Upper Extremity X-Ray(s): Hand, right PERIPHERAL IV DATA: Not applicable SIGNED BY: RT Walter(R) May 25, 2024 11:53 AM documented in this encounter [facility] 05-25-2024 Note [facility] 05-23-2024 Note [facility] 05-23-2024 History of Present illness Narrative Images [...] Anxiety Congestive heart failure (HCC) during . Legal Support Specialist took her off meds. No issues [...] <AGE 14 1986 Tonsillectomy ALLERGIES Pamprin Multi-Symptom [Whwggyfuqnwcg-Nefikeym-Mcpohdw], Buspar [Buspirone], Codeine, Lamotrigine, Nitrofurantoin Macrocrystal, and [...] Cancer Maternal Grandfather BLADDER Heart Maternal Grandfather PA & EMPHYSEMA Social History Tobacco Use Smoking [...] agrees with plan of care. Galo Bernal APRN.MARKING MACHINE OPERATOR documented in this encounter [facility] 05-15-2024 Note [facility] 05-15-2024 History of Present illness Narrative CC: Patient presents with: Derm Problem HPI Pat Medina is a 44 year old female who [...] Anxiety Congestive heart failure (HCC) during . Legal Support Specialist took her off meds. No issues [...] & curettage,TAB ESOPHAGOGASTRODUODENOSCOPY TRANSORAL DIAGNOSTIC 11/01/11 EGD [facility] inpt H-pylori negative LIG/TRNSXJ FLP TUBE ABDL/VAG APPR UNI/BI 04/09/2006 Tubal ligation MYRINGOTOMY ASPIR&/EUSTACHIAN TUBE NFLTJ ANES 1994 Myringotomy/tubes OOPHORECTOMY PARTIAL/TOTAL UNI/BI left TONSILLECTOMY PRIMARY/SECONDARY <AGE 12 1988 Tonsillectomy ALLERGIES Pamprin Multi-Symptom [Kwsvnisxaymjf-Yksyttnc-Ukbwvtq], Buspar [Buspirone], Codeine, Lamotrigine, Nitrofurantoin Macrocrystal, and [...] Cancer Maternal Grandfather BLADDER Heart Maternal Grandfather PA & EMPHYSEMA Social History Tobacco Use Smoking [...] occur. Patient agreeable to treatment plan. Anny Hutchins APRN.MARKING MACHINE OPERATOR documented in this encounter [facility] 05-15-2024 Telephone encounter Note Spoke to pt. Appt scheduled with Anny Pham CNP for 1:00 pm today. Darline Santamaria LPN [facility] 05-15-2024 Miscellaneous Notes Spoke to pt. Appt [...] Britt Murray LPN documented in this encounter [facility] 05-15-2024 Telephone encounter Note Left message to [...] needs scheduled for appt. Britt Murray LPN [facility] 05-11-2024 Note [facility] 05-11-2024 History of Present illness Narrative SUBJECTIVE: Hepatitis B Vaccine(2 of 3 - Hep B Twinrix 3-dose series) due on 05/19/2016 Mammogram Screening Never done Cervical Cancer Screening due on 09/28/2022 HPI Pat Medina is a 44year old female. PMH significnat [...] Anxiety Congestive heart failure (HCC) during . Legal Support Specialist took her off meds. No issues [...] LEFT - CONSULT TO GENERAL SURGERY Karen Mckee APRN.ADVERTISING SALES AGENT Medical Decision Making: Problems: Low: Acute, uncomplicated illness or injury Data: Unique test(s) ordered: 1 Risk: Low: Low risk from testing/treatment Medical Decision Making Level: 3 - Low documented in this encounter [facility] 05-11-2024 Note [facility] 05-11-2024 History of Present illness Narrative This note was created using [employer] Development[employer]. Subjective Pat Medina is a 44 year old female. 44 [...] history is provided by the patient. No hourly sign language interpreter was used. Trauma This is a new [...] Anxiety Congestive heart failure (HCC) during . Legal Support Specialist took her off meds. No issues [...] & curettage,TAB ESOPHAGOGASTRODUODENOSCOPY TRANSORAL DIAGNOSTIC 11/01/11 EGD [facility] inpt H-pylori negative LIG/TRNSXJ FLP TUBE ABDL/VAG APPR UNI/BI 04/09/2006 Tubal ligation MYRINGOTOMY ASPIR&/EUSTACHIAN TUBE NFLTJ ANES 1994 Myringotomy/tubes OOPHORECTOMY PARTIAL/TOTAL UNI/BI left TONSILLECTOMY PRIMARY/SECONDARY <AGE 12 1988 Tonsillectomy ALLERGIES Pamprin Multi-Symptom [Jqcmgrrufvjqz-Kbsyujcs-Ryrkpvx], Buspar [Buspirone], Codeine, Lamotrigine, Nitrofurantoin Macrocrystal, and [...] Cancer Maternal Grandfather BLADDER Heart Maternal Grandfather PA & EMPHYSEMA Social History Tobacco Use Smoking [...] in 3 to 5 days Yodit Saxena APRN.MARKING MACHINE OPERATOR documented in this encounter [facility] 05-10-2024 History of Present illness Narrative Radiology Service Progress Note PATIENT NAME: Pat Medina DATE OF SERVICE: May 10, 2024 TIME: [...] PATIENT PRESENTS WITH AN IMPLANTABLE OR ATTACHED NITRATE OPERATOR: No RADIOLOGY DEPARTMENT: General X-ray: Exam(s) Completed: Upper Extremity X-Ray(s): Forearm, left PERIPHERAL IV DATA: Not applicable SIGNED BY: RT Divya(R) May 10, 2024 12:19 PM documented in this encounter [facility] 05-10-2024 Note [facility] 04-29-2024 Hospital Discharge instructions Patient Education 04/29/2024 [...] worse Numbness or weakness in a leg [id number] [employer]. [address] [place] [address]. All rights reserved. This information is not intended as a substitute for professional medical care. Always follow your healthcare professional's instructions. Follow Up Care 04/29/2024 20:44:41 With:MAILE NORMAN MD Address: [address] [place] [id number] When:2-4 days [facility] 04-29-2024 Note ORIGINAL EXAMINATION: CT OF [...] 04/29/2024 9:43:43 PM Ordering Provider: [facility] Note [facility] 04-25-2024 History of Present illness Narrative SUBJECTIVE Pat Medina is a 44 year old female here today for a check up on her medical problems. Chief Complaint Patient presents with: 4 week follow up HPI Pta Medina is a 44 year old female. She [...] an ideal treatment for chronic pain, Pat Medina has multiple other pain generators stemming from history of right shoulder injury. While across the board there is lack of evidence supporting the use of opiates in chronic pain (mostly because the studies have not been done), decisions to prescribe opiates should be individualized and in this case Pat Medina has showed that in her specific case, [...] medications.. BOO Borrero documented in this encounter [facility] 04-17-2024 Telephone encounter Note Addressed in separate encounter, see my chart reply. [facility] 04-17-2024 Miscellaneous Notes Addressed in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 10-11-2023 Note HNO ID: [id number] Author: LOUIS VALENCIA MD Service: ? Author Type: Physician Type: Progress Notes Filed: 10/12/2023 10:42 Note Text: PAIN EVALUATION 10/10/2023 1237 10/11/2023 1015 Pain Level: 7 6 Pain Location: -- Shoulder-Right Description: Aching;Burning;Itching;Numbness;Stabbi ng;Throbbing Burning;Aching;Sharp Frequency: -- Continuous Intervention/Comfort measure: Medication;Reposition;Relaxation;Cold; Emotional Support/Reassurance;Pillow support;Positioning;Splinting -- Pat Medina presents today for: Second post-surgery follow up [...] AND Elbow Surgeon Department of Orthopaedic Surgery [facility] Medical Decision Making: Medical Decision Making Level: 1 - N/A [facility] 10-11-2023 History of Present illness Narrative Images from the original note were not included. PAIN EVALUATION 10/10/2023 1237 10/11/2023 1015 Pain Level: 7 6 Pain Location: -- Shoulder-Right Description: Aching;Burning;Itching;Numbness;Stabbi ng;Throbbing Burning;Aching;Sharp Frequency: -- Continuous Intervention/Comfort measure: Medication;Reposition;Relaxation;Cold; Emotional Support/Reassurance;Pillow support;Positioning;Splinting -- Pat Medina presents today for: Second post-surgery follow up [...] & Elbow Surgeon Department of Orthopaedic Surgery [facility] Medical Decision Making: Medical Decision Making Level: 1 - N/A documented in this encounter [facility] 10-10-2023 History of Present illness Narrative Program_ID:[id number] Access Code: [email or web address] URL: [email or web address] Date: 10-10-2023 Prepared By: Yodit Baker [...] THERAPY PHYSICAL THERAPY TREATMENT NOTE ASSESSMENT: Pat Medina tolerated the session with fatigue and expected [...] UMA Malhotra PT documented in this encounter [facility] 10-03-2023 Miscellaneous Notes Spoke with pt and information listed below given. Pt verbalizes understanding. Amber Minaya LPN Reviewed progress note from recent OV with Sam. Has follow up with PT and ortho. Also has follow up this month with Sam. Okay 1 week RX as ordered before 09/26 to grape picker 10/03 The following approved medication requests [...] Tre Perez MA. documented in this encounter [facility] 10-03-2023 History of Present illness Narrative Episode Visit Count: 4 Therapist That Will Accept/Oversee The Plan Of Care: Yodit Baker Start of Care Date: 09/05/23 Onset Date: 10/05/22 Plan of Care Certification Date: 09/05/23 Next Certification Due Date: 10/10/23 Patient Identified by Name and Date of : Yes REHABILITATION AND SPORTS THERAPY PHYSICAL THERAPY TREATMENT NOTE ASSESSMENT: Pat Medina tolerated the session with expected muscle soreness. [...] a follow up with Dr. Valencia on [facility] 10/06/23. Pt wearing abduction sling today, [...] 1102 Session Stop Time : 1132 UMA Malhotra, PT documented in this encounter [facility] 09-27-2023 History of Present illness Narrative Images from the original note were not included. SUBJECTIVE Pat Medina is a 43 year old female here today for an ER follow up. Chief Complaint Patient presents with: ER F/U: Shoulder HPI Pat Medina is a 43 year old female. She is an established patient of Maile Norman MD. Here today for ER follow up, seen in the ER at [facility] yesterday 09/25. A few days prior [...] OXYCODONE-ACETAMINOPHEN 5 MG-325 MG TABLET Sam Khan APRN.CNP Portions of [...] Khan APRN-LUIS DANIEL documented in this encounter [facility] 09-27-2023 Hospital Discharge instructions Patient Education 09/26/2023 [...] shoulder or upper arm Fever or chills [phone] [employer]. [address] [place] [address], [place] [address]. All rights reserved. This information is not intended as a substitute for professional medical care. Always follow your healthcare professional's instructions. Follow Up Care 09/26/2023 19:29:15 With:Follow-up with your orthopedic surgeon as soon as possible. Address:Unknown When:2-4 days With:MAILE NORMAN Address: [facility] [place] [address] Business (1) When:2-4 days Comments:Return to ED if symptoms worsen [facility] Nichobrett Jennings 09-26-2023 Emergency department Discharge summary Discharge Instructions Thank you for allowing Nich[facility] [...] to ED if symptoms worsen Where: [address] [place] [address]- [employer] (1) Allergies LaMICtal Pamprin Maximum Pain codeine [...] shoulder or upper arm Fever or chills [phone] [employer]. [address] [place] [address], [place] [address]. All rights reserved. This information is not intended as a substitute for professional medical care. Always follow your healthcare professional's instructions. Additional Information VACCINATE! IT SAVES LIVES! Members of the community who have not yet received the COVID-19 vaccine and would like to receive it can visit one of [facility] vaccine clinics. There are many vaccine clinic locations within the State. For locations and available times, please visit www.[email or web address] It is important to note that some COVID mobile vaccine clinics are held outdoors and may be canceled in rainy or stormy conditions. To learn more about pediatric vaccinations (ages 5-11), we invite you to visit the [facility] webpage. [email or web address]://www.[email or web address].[email or web address]/pages/2 [email or web address]-Cfsez-Jptkqkgckpd-Frequently-Asked -Questions.html To learn more about the COVID-19 vaccine, we invite you to visit the CDC website for a list of frequently asked questions. https://www.cdc.gov/coronavirus/2019-n cov/vaccines/faq.html [facility] Patient Portal Access Instructions: Stay connected with your healthcare team and access your personal medical information anytime with the [facility] Patient Portal. If you would like a full copy of your medical records please contact the [facility] Medical Records Department Tuesday through Tuesday between 8a.m. and 4:30p.m. Please follow the directions below to access the portal: 1.Access the email account you provided upon registration to the hospital.2.Look for an invitation email from [facility].3.Open the email and access the invitation link: Accept Invitation to [facility].Fill in the required moore to create your account. Sign into [email or web address] with your username and password that you [...] you will allow to register on the [facility] Patient Portal for access to your information. You can also access the [facility] Patient Portal on the [employer] lala. Simply click on Health Records under Health Data and then click on the [employer] logo. HOW TO SAFELY DISPOSE OF PRESCRIPTION [...] Call your local pharmacy or go to [email or web address] to find one close to you.3.Make use of household items: Use cat litter or old coffee grounds to dispose medications if other options are not available. Mix your drugs with these household products, seal them in an airtight container and throw it into the garbage. Call [facility]: [phone] to be sure your drugs can be [...] aware that I should contact my doctor. Patient/Etl Application Developer Signature: _ Date/Time: Relationship to Patient: Witness Name/Signature: Date/Time: [facility] 09-26-2023 Note ORIGINAL EXAMINATION: TWO XRAY [...] 9:41:45 PM Ordering Provider: TU DE ANDA [facility] 09-19-2023 History of Present illness Narrative Episode Visit Count: 2 Therapist That Will Accept/Oversee The Plan Of Care: Yodit Baker Start of Care Date: 09/05/23 Onset Date: 10/05/22 Plan of Care Certification Date: 09/05/23 Next Certification Due Date: 10/10/23 Patient Identified by Name and Date of : Yes REHABILITATION AND SPORTS THERAPY PHYSICAL THERAPY TREATMENT NOTE ASSESSMENT: Pat Medina tolerated the session with fatigue, increased symptoms, [...] 1100 Session Stop Time : 1141 Claire Harrington, UMA Baker PT documented in this encounter [facility] 09-15-2023 Miscellaneous Notes Sent to provider with medication request. documented in this encounter [facility] 09-15-2023 Miscellaneous Notes Per Pt MyChart message from 09/14/23,I had my post off [...] Otilia Douglas RN. documented in this encounter [facility] 09-13-2023 Note HNO ID: [id number] Author: LOUIS VALENCIA MD Service: ? Author Type: Physician Type: Progress Notes Filed: 09/13/2023 13:40 Note Text: PAIN EVALUATION 09/13/2023 1330 Pain Level: 7 Pain Location: Shoulder-Right Description: Aching;Burning;Stabbing Frequency: Continuous Pat Medina presents today for: First post-surgery follow up [...] AND Elbow Surgeon Department of Orthopaedic Surgery [facility] Medical Decision Making: Medical Decision Making Level: 1 - N/A [facility] 09-13-2023 History of Present illness Narrative PAIN EVALUATION 09/13/2023 1330 Pain Level: 7 Pain Location: Shoulder-Right Description: Aching;Burning;Stabbing Frequency: Continuous Pat Medina presents today for: First post-surgery follow up [...] & Elbow Surgeon Department of Orthopaedic Surgery [facility] Medical Decision Making: Medical Decision Making Level: 1 - N/A documented in this encounter [facility] 09-09-2023 Instructions Sam Khan APRN.LUIS DANIEL - 09/09/2023 3:19 PM EDT Goal is for the tylenol use to be 4000 mg or less in 24 hours. Keep icing the shoulder. Okay to keep taking the ibuprofen. We will refill the percocet. documented in this encounter [facility] 09-09-2023 History of Present illness Narrative SUBJECTIVE Pat Medina is a 43 year old female here today for a check up on her medical problems. Chief Complaint Patient presents with: Medication Follow-up HPI Pat Medina is a 43 year old female. She [...] activity was identified. 09/09/2023 by Sam Khan APRN.MARKING MACHINE OPERATOR Portions of this note have been entered [...] Khan APRN-LUIS DANIEL documented in this encounter [facility] 09-05-2023 History of Present illness Narrative Program_ID:[id number] Access Code: [email or web address] URL: [email or web address] Date: 09-05-2023 Prepared By: Yodit Baker [...] THERAPY EVALUATION PLAN OF CARE: Assessment: Pat Medina presents with diagnosis of bicipital tendinitis of [...] of Care: created on 09/05/23 through 10/17/23 Coffee in home exercise program. 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 Patient education as noted. Self-Snf Management: 1: discussed avoiding guarding with codman [...] Yodit Baker PT documented in this encounter [facility] 09-02-2023 Miscellaneous Notes Pt will run out of pain medication on Tuesday. I have put in a refill to be filled not until Tuesday. Last refill 09-01-23 documented in this encounter [facility] 09-01-2023 Miscellaneous Notes Patient called requesting refill of post-op pain medication. Patients last known Refill Date: 08-29-23, date of surgery Patient Phone numbers: [phone] (home) Request is for script(s) to be escript to pharmacy. Alis Kwon [place] [employer] documented in this encounter [facility] 08-29-2023 Note HNO ID: [id number] Author: ASHTYN SANDERSON RN Service: General Surgery Author Type: Registered Nurse Type: Nursing Progress Note Filed: 08/29/2023 15:07 Note Text: Other: patient dressed with 1 assist [facility] 08-29-2023 Note HNO ID: [id number] Author: ASHTYN SANDERSON RN Service: General Surgery Author Type: Registered Nurse Type: Nursing Progress Note Filed: 08/29/2023 14:49 Note Text: Other: patient sat up [facility] 08-29-2023 Note HNO ID: [id number] Author: BRITT WOODS APRN.ROUTE DELIVERY SERVICE DRIVER Service: Anesthesiology Author Type: Nurse Gas Plant Specialist Type: Anesthesia Procedure Notes Filed: 08/29/2023 13:17 Note Text: ANESTHESIOLOGY PROCEDURE NOTE Airway General Information Procedure Start Time/Medication Administration: 08/29/2023 1:11 PM Patient location during procedure: OR Timeout Performed Pre-procedure: timeout performed Consent Obtained: Yes Patient identity confirmed: arm band and patient Staffing ROUTE DELIVERY SERVICE DRIVER: Britt Woods APRN.ROUTE DELIVERY SERVICE DRIVER Performed by: ROHAN Indications and Patient Condition [...] SIGNATURE: Britt Woods APRN.CRNA PATIENT NAME: Pat Medina DATE: August 29, 2023 TIME: 1:17 PM CSN: [id number] [facility] 08-29-2023 Note HNO ID: [id number] Author: OTF MCCLENDON MD Service: Anesthesiology Author [...] SIGNATURE: Otf Mcclendon MD PATIENT NAME: Pat Medina DATE: August 29, 2023 TIME: 12:02 PM CSN: [id number] [facility] 08-23-2023 Miscellaneous Notes Noted, I will watch [...] Shanon Lowe RN documented in this encounter [facility] 08-18-2023 Note HNO ID: [id number] Author: RADHA GARG APRN.CNP Service: ? Author Type: Nurse Practitioner [...] or if she develops fever. [facility] 08-18-2023 History of Present illness Narrative Summary: [...] she develops fever. documented in this encounter [facility] 08-18-2023 Instructions Radha Garg APRN.CNP - 08/18/2023 9:24 AM EST PATIENT PREOPERATIVE INSTRUCTIONS Louis Valencia,* has scheduled you for your procedure at this surgery center: [facility]. [address] [place] [address], [place] [address], [place], [facility] Please read below carefully for your personalized [...] - Stop Vitamin E, fish oil, Ginko, Edmund's Wort, flax seed oil, multivitamins, CBD oil, [...] surgery. - YOU MUST HAVE A RESPONSIBLE HELPER [employer] TAKE YOU HOME. A EXHAUST EQUIPMENT OPERATOR, CAB OR UBER HELPER [employer] CANNOT BE MADE A RESPONSIBLE HELPER [employer]. - We also require that a responsible [...] Advance Directive, please fax a copy to [phone] or email to for it to be [...] your vaccine and date of surgery Radha Garg APRN.CNP 08/18/23 documented in this encounter [facility] 08-18-2023 History and physical note HISTORY AND [...] Initiated: No labs ordered per surgeon in [facility] I spent a total of 40 minutes on the date of the service which included preparing to see the patient, msjq-ap-bjsu patient care, completing clinical documentation, obtaining and/or [...] as needed (headache). REASON FOR VISIT: Pat Medina is a 43 year old female who [...] Negative for: dysuria, hematuria and renal failure. PIPE THREADER: Negative for: vaginal bleeding. 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 Legal Support Specialist took her off meds. No issues [...] Cancer Maternal Grandfather BLADDER Heart Maternal Grandfather PA & EMPHYSEMA Social History Tobacco Use Smoking [...] 372 QTC Calculation (Bazett) 561 Calculated P Taberg 60 Calculated R Taberg 81 Calculated T Taberg 53 Impression SINUS TACHYCARDIA POSSIBLE LEFT ATRIAL ENLARGEMENT NONSPECIFIC ST AND T WAVE ABNORMALITY ABNORMAL ECG No results found for this or any previous visit (from the past 30224 hour(s)). Instructions Given to Patient: Instructions located in the after visit summary. Patient given verbal and written preop instructions and voices comprehension and compliance. SIGNATURE: Radha Garg APRN.CNP PATIENT NAME: Pat Medina DATE: August 17, 2023 TIME: 8:56 AM PAGER/CONTACT #: documented in this encounter [facility] 08-12-2023 Miscellaneous Notes Spoke with pt and information listed below given. Pt verbalizes understanding. Amber Minaya LPN Left VM instructing patient to return call to receive results. Jodi Brasher MA Please notify positive for flu B Typically course is 5-7 days Push fluids Continue with plan as discussed during visit documented in this encounter [facility] 08-11-2023 Miscellaneous Notes August 11, 2023 9:02 [...] plan. TIKA Degroot documented in this encounter [facility] 08-11-2023 Instructions Tori Jc - 08/11/2023 8:59 [...] you press the inhaler. Ask your health personal care aid for more information on these devices. documented in this encounter [facility] 08-11-2023 History of Present illness Narrative Subjective [...] & curettage,TAB ESOPHAGOGASTRODUODENOSCOPY TRANSORAL DIAGNOSTIC 11/01/11 [facility] inpt H-pylori negative LIG/TRNSXJ FLP TUBE ABDL/VAG APPR UNI/BI 04/09/2006 Tubal ligation MYRINGOTOMY ASPIR&/EUSTACHIAN TUBE NFLTJ ANES 1994 Myringotomy/tubes OOPHORECTOMY PARTIAL/TOTAL UNI/BI left TONSILLECTOMY PRIMARY/SECONDARY <AGE 12 1987 Tonsillectomy ALLERGIES Pamprin Multi-Symptom [Xjbhehkjcotfh-Rnkocpjj-Jibxppw], Buspar [Buspirone], Codeine, Lamotrigine, Nitrofurantoin Macrocrystal, and [...] Cancer Maternal Grandfather BLADDER Heart Maternal Grandfather PA & EMPHYSEMA Social History Tobacco Use Smoking [...] - Prednisone Taper TIKA Degroot TEACHING PROVIDER (Physician/PA/STAIN MAKER) NOTE OF PERSONAL INVOLVEMENT IN CARE: I have personally seen and examined the patient and performed the medical decision-making components. I have reviewed the Advanced Practice Registered Nurse (STAIN MAKER) Student's documentation and verified the findings in the note as written. Any additions or changes are noted in bold/italics. Signature: Pennie Clemente Date: 08/11/2023 Time: 9:18 AM documented in this encounter [facility] 08-09-2023 Note HNO ID: [id number] Author: LOUIS VALENCIA MD Service: ? Author Type: Physician Type: Progress Notes Filed: 08/09/2023 13:18 Note Text: PAIN EVALUATION 08/09/2023 1252 Pain Level: 5 Pain Location: Shoulder-Right Description: Dull;Aching;Sharp Duration Units: Years Frequency: Intermittent Intervention/Comfort measure: Medication;Reposition;Relaxation Encounter Diagnosis ICD-10-CM 1. Biceps tendinitis of right upper extremity M75.21 Pat Medina presents today for evaluation of her right [...] negative Drop arm test: negative Biceps/joss Signs Obion's test: positive Clicking/popping: positive Speed's test: positive [...] ROTATOR CUFF AND GLENOID LABRUM. PLAN: Pat Medina presents today with persistent pain in the [...] Surgery [facility] 08-09-2023 History of Present illness Narrative PAIN EVALUATION 08/09/2023 1252 Pain Level: 5 Pain Location: Shoulder-Right Description: Dull;Aching;Sharp Duration Units: Years Frequency: Intermittent Intervention/Comfort measure: Medication;Reposition;Relaxation Encounter Diagnosis ICD-10-CM 1. Biceps tendinitis of right upper extremity M75.21 Pat Medina presents today for evaluation of her right [...] negative Drop arm test: negative Biceps/joss Signs Obion's test: positive Clicking/popping: positive Speed's test: positive [...] ROTATOR CUFF AND GLENOID LABRUM. PLAN: Pat Medina presents today with persistent pain in the [...] & Elbow Surgeon Department of Orthopaedic Surgery [place] documented in this encounter [facility] 08-05-2023 History of Present illness Narrative SUBJECTIVE Pat Medina is a 43 year old female here today for a check up on her medical problems. Chief Complaint Patient presents with: Follow Up HPI Pat Medina is a 43 year old female. She [...] Khan APRN-LUIS DANIEL documented in this encounter [facility] 08-01-2023 Miscellaneous Notes Patient returned call and went over notes from Dr Norman with understanding. Patient said she had to reschedule her appt due to being ill and moved to 08/09/[address] Valencia. Scheduled appt with PANTS PRESSER for tomorrow morning at 740 am. Left [...] Provider: MAILE NORMAN MD Pharmacy verified in [facility] Patient has been identified by [...] advise. Pat Rowell documented in this encounter [facility] 08-01-2023 History of Present illness Narrative This note was created using [employer]. Subjective Pat Medina is a 43 year old female. HPI [...] No vomiting or diarrhea. Has been taking kqyg-dqv-fxsclii medication with minimal improvement. No other complaint. [...] & curettage,TAB ESOPHAGOGASTRODUODENOSCOPY TRANSORAL DIAGNOSTIC 11/01/11 EGD [facility] inpt H-pylori negative LIG/TRNSXJ FLP TUBE ABDL/VAG APPR UNI/BI 04/09/2006 Tubal ligation MYRINGOTOMY ASPIR&/EUSTACHIAN TUBE NFLTJ ANES 1994 Myringotomy/tubes OOPHORECTOMY PARTIAL/TOTAL UNI/BI left TONSILLECTOMY PRIMARY/SECONDARY <AGE 12 1987 Tonsillectomy ALLERGIES Pamprin Multi-Symptom [Aeupbtazpkskm-Zbqxqzwk-Ykxxepd], Buspar [Buspirone], Codeine, Lamotrigine, Nitrofurantoin Macrocrystal, and [...] Cancer Maternal Grandfather BLADDER Heart Maternal Grandfather PA & EMPHYSEMA Social History Tobacco Use Smoking [...] evaluation. SAAD Gamez documented in this encounter [facility] 06-16-2023 History of Present illness Narrative Antonio Rios MD Department of Orthopaedics Orthopaedics [address] [facility] [address] Dept: [phone] Dept June 16, 2023 CHIEF COMPLAINT: Pain and New of the Right Shoulder and Referred by Charles MELGAR Patient here for evaluation right shoulder pain. [...] her shoulder. She had an MRI at [facility] but did not bring it. States it [...] in to see Dr. Valencia. Ms. Pat Medina was advised as to contrast therapies and/or to take analgesics/anti-inflammatories as needed and all contraindications were reviewed. OBJECTIVE: Ms. Pat Medina is a pleasant 43 year old in [...] DATE OF EXAM: Mar 11 2023 3:01PM [facility] 0242 - MRI SHOULDER WO/W IVCON [...] & curettage,TAB ESOPHAGOGASTRODUODENOSCOPY TRANSORAL DIAGNOSTIC 11/01/11 EGD [facility] inpt H-pylori negative LIG/TRNSXJ FLP TUBE ABDL/VAG APPR UNI/BI 04/09/2006 Tubal ligation MYRINGOTOMY ASPIR&/EUSTACHIAN TUBE NFLTJ ANES 1994 Myringotomy/tubes OOPHORECTOMY PARTIAL/TOTAL UNI/BI left TONSILLECTOMY PRIMARY/SECONDARY <AGE 12 1987 Tonsillectomy Family History: FAMILY HISTORY Problem Relation Age of Onset Psychiatry Mother DEPRESSION Hypertension Father Cervical Cancer Maternal Grandmother Hypertension Maternal Grandmother Cancer Maternal Grandfather BLADDER Heart Maternal Grandfather PA & EMPHYSEMA Social History: Social History Tobacco [...] medications for this visit. Allergies: Pamprin Multi-Symptom [Cegxcvlmkzdmf-Mxlogxmj-Mokadbd], Buspar [Buspirone], Codeine, Lamotrigine, Nitrofurantoin Macrocrystal, and Promethazine-Phenylephrine ROS: General (negative for fatigue, malaise, weight loss/gain) HEENT (negative for headache, earache, recent vision changes, sinus pain, sore throat) Respiratory (no recent shortness of breath, hemoptysis) CV (negative for chest tightness, palpitations) Musculoskeletal (see HPI) Psych (no depression, anxiety) REFERRING PHYSICIAN: Consultation requested by Charles Stanton for an opinion regarding right shoulder pain. My final recommendations will be communicated back to the requesting physician by way of shared Medical record or letter to requesting physician via US mail. Charles Stanotn [address] [facility] [address] Maile Norman MD [address] [facility] [address] Antonio Rios MD documented in this encounter [facility] 05-25-2023 Miscellaneous Notes PDMP website checked and validated. All prescriptions have been APPROPRIATELY filled. No suspicious activity was identified. 05/25/2023 by Sam Khan APRN.MARKING MACHINE OPERATOR Patient has been identified by name and [...] Sharmin Monge LPN. documented in this encounter [facility] 05-16-2023 Miscellaneous Notes Message left on voicemail to call office for update. Karen Shore LPN documented in this encounter [facility] 05-13-2023 History of Present illness Narrative POPULATION HEALTH NAVIGATION OUTREACH Action/FYI Pt scheduled Patient Identified by Name and : YES, via phone Outreach Outcome/Action Spoke to patient / parent / legal guardian: Patient scheduled Did you use a PCP flex slot to schedule this appointment? No Reason for Outreach Care Gap or Scheduling/Wellness visits Payer: Payor: [place] / Plan: [facility] MEDICAID / Product Type: Medicaid / Care [...] 2023 3:37 PM documented in this encounter [facility] 05-12-2023 Miscellaneous Notes See other refill encounter [...] Britt Murray LPN documented in this encounter [facility] 05-12-2023 Miscellaneous Notes Pain management visit today advised Pat Medina: Discussed the guidelines of pain management and the patient appears to understand this practice would not be able to provide opioid therapy with her THC card. Review PDMP indicates recent THC fill. I cannot refill this for her, will defer to PCP for review. Duplicate request. See phone note. Aline Gomes RN documented in this encounter [facility] 05-12-2023 Miscellaneous Notes The referral to Orthopaedics for Chronic right shoulder pain, Labral tear of shoulder, degenerative, right has been submitted via the [facility] Internal Referral Request form on the [facility] Appointment Portal. Confirmation # [id number] Kimberly Crowe documented in this encounter [facility] 05-12-2023 Note HNO ID: [id number] Author: Vince Heck LPN Service: ? Author [...] ideas. The patient is nervous/anxious. [facility] 05-12-2023 History of Present illness Narrative Review [...] [facility] Today's Date: 05/12/2023 Last Visit: N/A Name: Pat Medina : 1980 Purpose: New Patient Consultation Chief complaint: right shoulder pain Referring Clinician: Anny Pham CNP. Pertinent Past Medical History: right shoulder, depression, anxiety, ADD. Pertinent Past Surgeries: none History of Present Illness (HPI): 05/11/2023 - Initial HPI (Obtained by Charles Stanton CNP). DURATION AND ONSET: The pain complaint [...] checked and validated on 05/12/2023 by Charles Stanton APRN.MARKING MACHINE OPERATOR All prescriptions have been APPROPRIATELY filled. No [...] BURSITIS. INTACT ROTATOR CUFF AND GLENOID LABRUM. Town Marshal: PSCB Transcribe Date/Time: Mar 11 2023 3:11P Dictated by : TYESHA MARX MD This examination was interpreted and the report reviewed and electronically signed by: TYESHA MARX MD on Mar 11 2023 3:15PM EST Results-Findings * * *Final Report* * * DATE OF EXAM: Mar 11 2023 3:01PM [facility] 0242 - MRI SHOULDER WO/W IVCON [...] tear of shoulder, degenerative, right PLAN: Pat Medina would benefit from the following to reach personal goals for decreasing pain, improving function and work participation, and/or improving quality of life: Medications: No Changes - Continue Current Medications Interventional Procedures: None Studies: None Functional Congregation: NONE Referrals: No additional considerations at present Orthopedics ([phone]) Follow-up: prn with Depending on response to [...] medical decision making from today's date. Charles Stanton APRN.CNP Pain Management [facility] documented in this encounter [facility] 05-12-2023 Note HNO ID: [id number] Author: Charles Stanton APRN.CNP Service: ? Author Type: Nurse Practitioner Type: Progress Notes Filed: 05/12/2023 2:29 PM Note Text: [facility] Today's Date: 05/12/2023 Last Visit: N/A Name: Pat Medina : 1980 Purpose: New Patient Consultation Chief complaint: right shoulder pain Referring Clinician: Anny Pham CNP. Pertinent Past Medical History: right shoulder, depression, anxiety, ADD. Pertinent Past Surgeries: none History of Present Illness (HPI): 05/11/2023 - Initial HPI (Obtained by JAMES Faulkner. DURATION AND ONSET: The pain complaint has [...] checked and validated on 05/12/2023 by Charles Stanton APRN.MARKING MACHINE OPERATOR All prescriptions have been APPROPRIATELY filled. No [...] R (more content not included)... [facility] 05-05-2023 Miscellaneous Notes Patient returned call and [...] Violeta Howard RN documented in this encounter [facility] 05-02-2023 Miscellaneous Notes Patient given results and [...] KEITH DIAZ PA-C documented in this encounter [facility] 04-30-2023 History of Present illness Narrative This note was created using Visual Threat. Subjective Patient presents with: Palpitations: Immunizations: Flu vaccination Pat Medina is a 43 year old female. She [...] ICD10: Z12.4 - CONSULT TO GYNECOLOGY Rick Anderson MD documented in this encounter [facility] 04-30-2023 History of Present illness Narrative CC: Patient presents with: Urinary Problem: Was seen on 04/25 and having no relief with current UTI meds HPI Pat Medina is a 43 year old female who [...] Patient agreeable to treatment plan. Anny Pham APRN.CNP documented in this encounter [facility] 04-25-2023 Miscellaneous Notes Spoke with patient. Given message from provider's office. Patient verbalizes understanding. Aline Gomes RN Spoke with Binu/Pharmacist at [facility], states the escripted RX [...] up to 14 days. Authorizing Provider: MAILE NROMAN MD Noted needed refilled today and needed new RX escripted. Addended by: ALINE GOMES on: 04/25/2023 06:01 PM Modules accepted: Orders Addended by: ALINE GOMES on: 04/25/2023 05:43 PM Modules accepted: Orders [place] pharmacist @ [facility] calling to say patient brought printed script to pharmacy and then brought the script back to the clinic and she is not sure where that script is at this time. He says he needs a new e script with start date 04/25/23 in order to fill Percocet tonight. If agree, pended. Aline Gomes RN [place] Pharmacist Ayo Hare called and is notified of providers message and instructions. Gave a verbal order of medication as the order had been printed. He voices understanding. Otilia Douglas RN Ok to give verbal ok for fill today since increasing dose and pt [place] be out of state after today. Please see if a new script needs sent. Ayo Hare calling for verbal okay to fill Percocet today. Pharmacist states patient says this was discussed at today's OV. Aline Gomes RN documented in this encounter [facility] 04-25-2023 Miscellaneous Notes Addended by: SAM KHAN on: 04/25/2023 03:43 PM Modules accepted: Orders documented in this encounter [facility] 04-25-2023 History of Present illness Narrative SUBJECTIVE Pat Medina is a 43 year old female here today for a check up on her medical problems. Chief Complaint Patient presents with: UTI: lower abdominal pain and burning right shoulder: with work related injury treats with oral pain medication percocet, deep heating rub, Pain management has rescheduled her twice. Completed PT through [facility] Would like a referral to ortho at [facility] [place] to discuss options HPI Pat Medina is a 43 year old female. Here today for concerns of a possible UTI. Bladder pain with urination. Also having issues still with her shoulder causing pain. Would like to see ortho with [facility] if possible. Her medications were reviewed today [...] Khan APRN-LUIS DANIEL documented in this encounter [facility] 04-25-2023 Instructions Sujatha Simpson LPN - 04/25/2023 [...] treated. A physician, nurse practitioner or physician distribution center assistant may treat with a short course [...] if symptoms resolve. documented in this encounter [facility] 04-11-2023 Miscellaneous Notes Tried calling patient three times, kept getting the busy signal so no message could be left. Left patient a Ivivi Health Sciences[employer] message regarding this appointment reschedule. documented in this encounter [facility] 03-30-2023 Miscellaneous Notes Patient notified of CBC, voicemail, advised probable viral, monitor symptoms, if worsening to ER, other alarcon should clear in next few days. Follow up with Dr You as needed. Oksana Weldon APRN.LUIS DANIEL documented in this encounter [facility] 03-30-2023 History of Present illness Narrative Radiology Service Progress Note PATIENT NAME: Pat Medina DATE OF SERVICE: March 30, 2023 TIME: [...] 2023 8:38 AM documented in this encounter [facility] 03-18-2023 Miscellaneous Notes Noted plans to continue pain med till see pain management per [employer] messages between patient and Sam. The following [...] Sharon Sutherland RN documented in this encounter [facility] 03-15-2023 Hospital Discharge instructions Patient Education 03/15/2023 [...] shoulder or upper arm Fever or chills 2416-2455 [employer]. [address] [place] [address], [place] [address]. All rights reserved. This information is not intended as a substitute for professional medical care. Always follow your healthcare professional's instructions. Follow Up Care 03/15/2023 09:47:09 With:MAILE NORMAN MD Address: [address] [place] [id number] When:2-4 days [facility] 03-15-2023 Note Discharge Instructions Thank you for allowing [facility] to assist you with your healthcare needs. [...] MD When Within 2-4 days Where: [address] [place] [address]- Allergies LaMICtal Pamprin Maximum Pain codeine Medications [...] may report side effects to FDA at 9-215-JXS-7054. What other drugs will affect orphenadrine? Taking orphenadrine with other drugs that make you sleepy or slow your breathing can cause dangerous side effects or . Ask your doctor before taking a sleeping pill, narcotic pain medicine, prescription cough medicine, a muscle relaxer, or medicine for anxiety, depression, or seizures. Other drugs may interact with orphenadrine, including prescription and kmhp-ghi-dkterii medicines, vitamins, and herbal products. Tell each [...] to ensure that the information provided by [employer]. ('Mult[employer]') is accurate, up-to-date, and complete, but no guarantee is made to that effect. Drug information contained herein may be time sensitive. [employer] information has been compiled for use by healthcare practitioners and consumers in the [place] and therefore [employer] does not warrant that uses outside of the [place] are appropriate, unless specifically indicated otherwise. [employer]'s drug information does not endorse drugs, diagnose patients or recommend therapy. [facility] drug information is an informational resource designed [...] effective or appropriate for any given patient. [facility] does not assume any responsibility for any aspect of healthcare administered with the aid of information [facility] provides. The information contained herein is not intended to cover all possible uses, directions, precautions, warnings, drug interactions, allergic reactions, or adverse effects. If you have questions about the drugs you are taking, check with your doctor, nurse or pharmacist. Copyright 2791-9830 [facility] [employer]. Version: 7.01. Revision Date: 02/02/2023. tramadol (TRAM [...] The extended-release form of tramadol is for jchpvo-guo-riwcp treatment of pain. This form of tramadol [...] may report side effects to FDA at 9-010-YMG-4542. What other drugs will affect tramadol? You [...] drugs may affect tramadol, including prescription and mglg-nej-mutbana medicines, vitamins, and herbal products. Not all [...] may affect tramadol. This includes prescription and gbby-znb-qlfcsig medicines, vitamins, and herbal products. Not all [...] to ensure that the information provided by [employer]. ('Mult[employer]') is accurate, up-to-date, and complete, but no guarantee is made to that effect. Drug information contained herein may be time sensitive. [employer] information has been compiled for use by healthcare practitioners and consumers in the [place] and therefore [employer] does not warrant that uses outside of the [place] are appropriate, unless specifically indicated otherwise. [employer] drug information does not endorse drugs, diagnose patients or recommend therapy. [employer] drug information is an informational resource designed [...] effective or appropriate for any given patient. [employer] does not assume any responsibility for any aspect of healthcare administered with the aid of information [employer] provides. The information contained herein is not intended to cover all possible uses, directions, precautions, warnings, drug interactions, allergic reactions, or adverse effects. If you have questions about the drugs you are taking, check with your doctor, nurse or pharmacist. Copyright 6726-1100 [employer]. Version: 24.. Revision Date: 01/28/2023. Education Materials [...] shoulder or upper arm Fever or chills 4345-4584 [employer]. [address] [place] [address], [place] [address]. All rights reserved. This information is not intended as a substitute for professional medical care. Always follow your healthcare professional's instructions. Additional Information VACCINATE! IT SAVES LIVES! Members of the community who have not yet received the COVID-19 vaccine and would like to receive it can visit one of [facility] vaccine clinics. There are many vaccine clinic locations within the [facility]. For locations and available times, please visit www.gettheshot.coronavirus.[place].gov/. It is important to note that some COVID mobile vaccine clinics are held outdoors and may be canceled in rainy or stormy conditions. To learn more about pediatric vaccinations (ages 5-11), we invite you to visit the [facility] webpage. [email or web address]/[email or web address]-[email or web address]-Frequently-[email or web address] -Questions.html To learn more about the COVID-19 vaccine, we invite you to visit the CDC website for a list of frequently asked questions. https://www.cdc.gov/coronavirus/2019-n cov/vaccines/faq.html [facility] Patient Portal Access Instructions: Stay connected with your healthcare team and access your personal medical information anytime with the [facility] Patient Portal. If you would like a full copy of your medical records please contact the [facility] Medical Records Department Tuesday through Tuesday between 8a.m. and 4:30p.m. Please follow the directions below to access the portal: 1.Access the email account you provided upon registration to the hospital.2.Look for an invitation email from [facility].3.Open the email and access the invitation link: Accept Invitation to [facility]4.Fill in the required moore to create your account. Sign into [email or web address].Privia with your username and password that you [...] you will allow to register on the [facility] Patient Portal for access to your information. You can also access the [facility] Patient Portal on the [employer] lala. Simply click on Health Records under Health Data and then click on the [employer] logo. HOW TO SAFELY DISPOSE OF PRESCRIPTION [...] Call your local pharmacy or go to http://[email or web address] [email or web address]/[email or web address] to find one close to you.3.Make use of household items: Use cat litter or old coffee grounds to dispose medications if other options are not available. Mix your drugs with these household products, seal them in an airtight container and throw it into the garbage. Call [facility]: [phone] to be sure your drugs can be [...] been reviewed and explained to me and I,PERTEE, PAT L understand my current condition and have read and understand these discharge instructions. I have received a written copy of the plan/instructions. If I have questions, I am aware that I should contact my doctor. Patient/Etl Application Developer Signature: _ Date/Time: Relationship to Patient: Witness Name/Signature: Date/Time: [facility] 03-15-2023 Note ORIGINAL EXAMINATION: TWO XRAY [...] 03/15/2023 10:58:13 AM Ordering Provider: LAVONNE WEAVER [facility] 03-11-2023 History of Present illness Narrative [...] right SIGNATURE: RT Krys(R) PATIENT NAME: Pat Medina DATE: March 11, 2023 TIME: 2:25 PM documented in this encounter [facility] 03-07-2023 Miscellaneous Notes Message left on pt's VM with update below. Pt advised to contact PCP office for any questions or concerns. Shanon Lowe RN documented in this encounter [facility] 03-07-2023 Miscellaneous Notes I am just now getting a chance to fill this, refill sent, please let her know. Sam Khan APRN.CNP PDMP website checked and validated. All prescriptions have been APPROPRIATELY filled. No suspicious activity was identified. 03/07/2023 by Sam Khan APRN.CNP Patient returns call and asks if prescription [...] Shanon Lowe RN documented in this encounter [facility] 03-07-2023 Miscellaneous Notes Spoke with patient and she stated that her river expedition guide is the one that wanted the MRI [...] arthrogram? This can not be completed at [facility] if so. Call ext [phone] with Sam's response to above. documented in this encounter [facility] 02-15-2023 History of Present illness Narrative POPULATION HEALTH NAVIGATION OUTREACH Action/[facility] Called pt to schedule an [...] 2023 3:19 PM documented in this encounter [facility] 02-08-2023 History of Present illness Narrative SUBJECTIVE Pat Medina is a 43 year old female here today for acute concern. Chief Complaint Patient presents with: Shoulder Injury: of right shoulder and requesting a MRI with contrast. This was a work related injury but due to paperwork issues the claim was closed. Has an deputy commonwealth's attorney trying to appeal the decision. Consult: pain management for right shoulder injury until [facility] Claim can be approved. Sore Throat: started with fever 1 week ago. Cough moist slightly productive with yellow sputum. HPI Pat Medina is a 43 year old female established patient of Dr. Norman. Presents today acutely for concerns of continued right shoulder pain. Injury first occurred on 09/29/2022. Initial report was muscle strain, also found to have a labral tear of the right shoulder. 09/29/2022 was the date of the injury. 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 Has done PT. Has seen Dr. Traore with [facility] and Dr. Stapleton with [facility] for orthopaedics. Has had an MRI without contrast, was recommended she needs contrast MRI to better show the issues in the shoulder. Wants to see pain management in the mean time. Has done steroids. On muscle relaxers. Seen in ER at [facility] 01/25 because pain was so bothersome. Workers comp case, case was closed. Working with deputy commonwealth's attorney. Her medications were reviewed today and [...] NSAIDs. She is aware that since her [employer] case has been closed that the testing and visit for today may not be covered by [employer] and that there is also a possibility [...] activity was identified. 02/08/2023 by Sam Khan APRN.MARKING MACHINE OPERATOR Portions of this note have been entered [...] appointment.. BOO Borrero documented in this encounter [facility] 01-25-2023 Hospital Discharge instructions Patient Education 01/25/2023 13:11:26 ED Pain Management (05/2018)(CUSTOM) [facility] in our Emergency/Acute Care Facility Our staff understands that pain relief is important when someone is hurt or needs emergency care. However, providing ongoing pain relief is often complex. We recommend this be done through your primary health care provider such as your family doctor or paint maker. Because mistakes or misuses of pain medication [...] show a valid photo ID (like a pizza delivery driver's license) when you check into the [...] or other controlled substance, we check the [place] Automated Rx Reporting system (OARRS) or a [...] Tuesday: or call the Crisis Intervention Center [facility] at [phone]. It is against the law to attempt [...] When:2-4 days With:MAILE NORMAN MD Address: [address] [place] [address]- When:2-4 days [facility] 01-25-2023 Note Discharge Instructions Thank you for allowing [facility] to assist you with your healthcare needs. [...] NORMAN MD When Within 2-4 days Where: [address] [place] [address]- Allergies LaMICtal Pamprin Maximum Pain [...] may report side effects to FDA at 9-443-BQM-1370. What other drugs will affect cyclobenzaprine? Using [...] drugs may affect cyclobenzaprine, including prescription and hdoy-one-kndapar medicines, vitamins, and herbal products. Not all [...] to ensure that the information provided by [employer]. ('Multum') is accurate, up-to-date, and complete, but no guarantee is made to that effect. Drug information contained herein may be time sensitive. [employer] information has been compiled for use by healthcare practitioners and consumers in the [place] and therefore [employer] does not warrant that uses outside of the [place] are appropriate, unless specifically indicated otherwise. [employer] drug information does not endorse drugs, diagnose patients or recommend therapy. [employer] drug information is an informational resource designed [...] effective or appropriate for any given patient. [employer] does not assume any responsibility for any aspect of healthcare administered with the aid of information [employer] provides. The information contained herein is not intended to cover all possible uses, directions, precautions, warnings, drug interactions, allergic reactions, or adverse effects. If you have questions about the drugs you are taking, check with your doctor, nurse or pharmacist. Copyright 6533-5243 [employer]. Version: 5.01. Revision Date: 03/22/2018. acetaminophen and [...] may report side effects to FDA at 1-813-UBO-2705. What other drugs will affect acetaminophen and [...] affect acetaminophen and oxycodone, including prescription and mqyz-nmq-shevsex medicines, vitamins, and herbal products. Not all [...] to ensure that the information provided by [employer]. ('Multum') is accurate, up-to-date, and complete, but no guarantee is made to that effect. Drug information contained herein may be time sensitive. [employer] information has been compiled for use by healthcare practitioners and consumers in the [place] and therefore [employer] does not warrant that uses outside of the [place] are appropriate, unless specifically indicated otherwise. [employer] drug information does not endorse drugs, diagnose patients or recommend therapy. [employer] drug information is an informational resource designed [...] effective or appropriate for any given patient. [employer] does not assume any responsibility for any aspect of healthcare administered with the aid of information [employer] provides. The information contained herein is not intended to cover all possible uses, directions, precautions, warnings, drug interactions, allergic reactions, or adverse effects. If you have questions about the drugs you are taking, check with your doctor, nurse or pharmacist. Copyright 9209-3568 [employer]. Version: 20.03. Revision Date: 08/01/2020. Education Materials [facility] Pain Management in our Emergency/Acute Care Facility Our staff understands that pain relief is important when someone is hurt or needs emergency care. However, providing ongoing pain relief is often complex. We recommend this be done through your primary health care provider such as your family doctor or paint maker. Because mistakes or misuses of pain medication [...] show a valid photo ID (like a pizza delivery driver's license) when you check into the [...] or other controlled substance, we check the [place] Automated Rx Reporting system (OARRS) or a [...] or call the [facility] at [phone]. It is against the law to attempt [...] to receive it can visit one of [facility] vaccine clinics. There are many vaccine clinic locations within the [facility]. For locations and available times, please visit [email or web address] It is important to note that some COVID mobile vaccine clinics are held outdoors and may be canceled in rainy or stormy conditions. To learn more about pediatric vaccinations (ages 5-11), we invite you to visit the [facility] webpage. [email or web address] -[email or web address] To learn more about the COVID-19 vaccine, we invite you to visit the CDC website for a list of frequently asked questions. https://www.cdc.gov/coronavirus/2019-n cov/vaccines/faq.html [facility] Patient Portal Access Instructions: Stay connected with your healthcare team and access your personal medical information anytime with the [facility] Patient Portal. If you would like a full copy of your medical records please contact the [facility] Medical Records Department Tuesday through Tuesday between 8a.m. and 4:30p.m. Please follow the directions below to access the portal: 1.Access the email account you provided upon registration to the hospital.2.Look for an invitation email from [facility].3.Open the email and access the invitation link: Accept Invitation to [facility]4.Fill in the required moore to create your account. Sign into [email or web address].[email or web address] with your username and password that you [...] you will allow to register on the [facility] Patient Portal for access to your information. You can also access the [facility] Patient Portal on the ZQGame. Simply click on Health Records under Health Data and then click on the [employer] logo. HOW TO SAFELY DISPOSE OF PRESCRIPTION [...] Call your local pharmacy or go to [email or web address] to find one close to you.3.Make use of household items: Use cat litter or old coffee grounds to dispose medications if other options are not available. Mix your drugs with these household products, seal them in an airtight container and throw it into the garbage. Call [facility]: [phone] to be sure your drugs can be [...] been reviewed and explained to me and ADAM Valencia JENNIFER L understand my current condition and have read and understand these discharge instructions. I have received a written copy of the plan/instructions. If I have questions, I am aware that I should contact my doctor. Patient/Etl Application Developer Signature: _ Date/Time: Relationship to Patient: Witness Name/Signature: Date/Time: [facility] 01-10-2023 Miscellaneous Notes Appt. Pt called [...] of xanax or appointment today with Dr. Ester Nava. No available appointments. Pended prescription for review. [...] racing heart. Protocols used: Anxiety and Panic [id number] documented in this encounter [facility] 01-10-2023 History of Present illness Narrative This note was created using Visual Threat. Subjective Pat Medina is a 42 year old female. Patient presents with: Established Patient: Discuss medication and panic attacks SUBJECTIVE: Pat Medina is a 42 year old year old [...] Maile Norman MD documented in this encounter [facility] 12-07-[address] Mccloud should be [...] let her know when completed. Gayla Ayala APRN.MARKING MACHINE OPERATOR Patient notified of results.Patient stated that pain management was recommended, please place consult order fo rpain management Patient is needing information for pain management- and their phone # [phone]. Phoned patient back and given phone # for . Yen Jo LPN Left message for patient to return call. Charles Garcia Ma ----- Message from Arnie Carrasco MD sent at 12/06/2022 12:35 PM EDT ----- Xray of her sacrum/coccyx is normal. Continue treatment as discussed in office. documented in this encounter [facility] 12-01-2022 History of Present illness Narrative Radiology Service Progress Note PATIENT NAME: Pat Medina DATE OF SERVICE: December 01, 2022 TIME: [...] 2022 2:00 PM documented in this encounter [facility] 12-01-2022 History of Present illness Narrative 12/01/2022 [...] Temporomandibular joint disorders, unspecified ALLERGIES Pamprin Multi-Symptom [Vmweydinlixmi-Cdkzxpzj-Wejipqo], Buspar [Buspirone], Codeine, Lamotrigine, Nitrofurantoin Macrocrystal, and [...] 3V AP/LAT - follow-up pending xray Gayla Podlogar, STAIN MAKER.MARKING MACHINE OPERATOR Prescription instructions reviewed with patient as applicable. [...] which included preparing to see the patient, inbh-uw-sctz patient care, completing clinical documentation, obtaining and/or reviewing separately obtained history, performing a medically appropriate examination, counseling and educating the patient/family/caregiver, and ordering medications, tests, or procedures. documented in this encounter [facility] 12-01-2022 Miscellaneous Notes Reviewed. Gayla Ayala APRN.CNP [...] Shanon Lowe RN documented in this encounter [facility] 09-17-2022 Miscellaneous Notes Patient notified of results [...] panic feeling. Would like prescription sent [facility]. Please advise. documented in this encounter [facility] 09-09-2022 History of Present illness Narrative Subjective Cough Associated symptoms include headaches, sore throat and myalgias. Pertinent negatives include no ear pain. Pat Medina is a 42 year old female who [...] <AGE 14 1985 Tonsillectomy ALLERGIES Pamprin Multi-Symptom [Cytwjurzpulnq-Ltsjdozs-Ynzqalz], Buspar [Buspirone], Codeine, Lamotrigine, Nitrofurantoin Macrocrystal, and [...] Cancer Maternal Grandfather BLADDER Heart Maternal Grandfather PA & EMPHYSEMA Social History Tobacco Use Smoking [...] Discussed expected course of illness Pennie Clemente APRN.MARKING MACHINE OPERATOR documented in this encounter [facility] 09-09-2022 Instructions Pennie Clemente APRN.LUIS DANIEL - 09/09/2022 10:46 AM EDT ASSESSMENT/PLAN: 1. [...] Discussed expected course of illness Pennie Clemente APRN.MARKING MACHINE OPERATOR Beginning Home Isolation Isolation is used to [...] to your local emergency facility: Notify the hot metal crane operator that you are seeking care for [...] concerning to you. documented in this encounter [facility] 09-08-2022 Miscellaneous Notes Noted. 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 Advised to go back to express care for evaluation may need COVID and influenza testing done. Patient said she may go back a little later or first thing morning. documented in this encounter [facility] 08-11-2022 Miscellaneous Notes Pt already received message [...] more than 24 per day Authorizing Provider: TALMAILE THOMAS MD Patient called asking status of message. Pt called in and reports she would like to quit smoking. She states she smokes 1 1/2 packs of cigarettes a day for 20 years. She is asking if she could have nicotine patches and gum called into [facility] in [place] for her. She state she will need high dose of the patches. Please call Pt back and advise. documented in this encounter [facility] 07-18-2022 History of Present illness Narrative CC: Patient presents with: Headache: sore throat, ear pain x 1 day, covid exposure HPI: Pat Medina is a 42 year old female who [...] & curettage,TAB ESOPHAGOGASTRODUODENOSCOPY TRANSORAL DIAGNOSTIC 11/01/11 EGD [facility] inpt H-pylori negative LIG/TRNSXJ FLP TUBE ABDL/VAG APPR UNI/BI 04/09/2006 Tubal ligation MYRINGOTOMY ASPIR&/EUSTACHIAN TUBE NFLTJ ANES 1994 Myringotomy/tubes OOPHORECTOMY PARTIAL/TOTAL UNI/BI left TONSILLECTOMY PRIMARY/SECONDARY <AGE 12 1988 Tonsillectomy ALLERGIES Pamprin Multi-Symptom [Esqazdazrhxfg-Sodiwiiy-Jlbmwnn], Buspar [Buspirone], Codeine, Lamotrigine, Nitrofurantoin Macrocrystal, and Promethazine-Phenylephrine MEDICATIONS acetaminophen (TYLENOL) 325 mg tablet Take 650 mg by mouth every 6 hours as needed. traZODone (DESYREL) 100 mg tablet Take 1 tablet by mouth daily at bedtime. FAMILY HISTORY Problem Relation Age of Onset Psychiatry Mother DEPRESSION Cervical Cancer Maternal Grandmother Hypertension Maternal Grandmother Cancer Maternal Grandfather BLADDER Heart Maternal Grandfather PA & EMPHYSEMA Social History Tobacco Use Smoking [...] Patient agreeable to treatment plan. Kimberly Rodriguez APRN.LUIS DANIEL documented in this encounter [facility] 06-01-2022 Miscellaneous Notes 05/31/2022 Bonita Bajwa Good morning, Reached out to patient to get her scheduled, patient states that she is already scheduled for this at [facility]. Thank you, Bonita Email sent to the [facility] requesting an US guided breast biopsy for Pat. Rosa M Mercado RN documented in this encounter [facility] 05-26-2022 History of Present illness Narrative FOLLOW UP VISIT NAME: Pat Medina [facility] NO[facility] [id number] DATE OF SERVICE: 05/25/2022 : 1980 REFERRING [...] and ultrasound on May 12, 2022 at [facility] which demonstrated: Ultrasound-a palpable abnormality listed [...] biopsy. I asked for the images from [facility] to be noted in the [facility] system. The patient returns today for follow-up [...] radiologist as soon as possible in the [facility] system. Diagnoses: (N63.10) Mass of right breast, unspecified quadrant (primary encounter diagnosis) Return to Clinic: The patient is instructed to follow-up with me as needed. Kuldeep Ellis MD documented in this encounter [facility] 05-13-2022 History of Present illness Narrative HISTORY AND PHYSICAL - BREAST COMPLAINT Pat Medina 1980 REFERRING PHYSICIAN: Maile Norman MD CHIEF [...] and ultrasound on May 12, 2022 at [facility] which demonstrated: Ultrasound-a palpable abnormality listed [...] left TONSILLECTOMY PRIMARY/SECONDARY <AGE 12 1987 Tonsillectomy Current Outpatient Medications Medication Sig Dispense [...] medications for this visit. ALLERGIES: Pamprin Multi-Symptom [Olmwnnmxwuhxg-Jcdvrdra-Whvmgnf], Buspar [Buspirone], Codeine, Lamotrigine, Nitrofurantoin Macrocrystal, and [...] Cancer Maternal Grandfather BLADDER Heart Maternal Grandfather PA & EMPHYSEMA REVIEW OF SYMPTOMS: The review of systems data was entered by the nurse and reviewed by ma Nursing Notes: Rosa M Mercado RN 05/13/2022 [...] I do not have the imaging from [facility] unfortunately today. The area that I [...] Kuldeep Ellis MD documented in this encounter [facility] 05-13-2022 Nurse Note REVIEW OF SYSTEMS: General: [...] M Mercado RN documented in this encounter [facility] 05-13-2022 Miscellaneous Notes Patient calling asking about breast ultrasound results. Went over results, notes below from Dr Norman with understanding. Assisted with transfer to medical office scheduler to get Gen surgery appt set up. Order filed. Biopsy of lump recommended. Pt completed diagnostic mammogram and ultrasound. They are in scanned documents. Please review. documented in this encounter [facility] 05-11-2022 Miscellaneous Notes Order have been faxed to [facility] at this time and they will call her to schedule appointment. Pt called and is notified of providers message and instructions. Pt voices understanding. Pt asking if order can be sent to [facility]. Faxed orders to [phone]. Otilia Douglas RN New order signed, please send, thanks!! Since she hasn't had a mammogram before [facility] wants a diagnostic bilateral mammogram and us of the right breast.(This order is already in place.) Please let her know that unfortunately there is a long wait time for breast imaging. If she prefers she can check and see if she is able to get in sooner to do it somewhere else like [facility] or [place]. With her having the issues it would [...] message on voicemail. documented in this encounter [facility] 05-07-2022 Instructions Karen Mckee APRN.CNS - 05/07/2022 11:39 AM EST documented in this encounter [facility] 05-07-2022 History of Present illness Narrative Images from the original note were not included. SUBJECTIVE: HEPATITIS B(2 of 3 - Hep B Twinrix 3-dose series) due on 05/19/2016 MAMMOGRAM Never done INFLUENZA(1) due on 02/25/2022 PAP TESTING due on 09/28/2022 HPV TESTING due on 09/28/2022 HPI Pat Medina is a 42 year old female. PMH [...] Seen by Dr Traore February 2022. Ms. Medina has complaint of generalized anxiety. She ADHD. [...] cancer - ICD9: V76.2, ICD10: Z12.4 Endorse PIPE THREADER visit 3. Insomnia, unspecified type - ICD9: 780.52, ICD10: G47.00(primary diagnosis) - COMP METABOLIC PANEL - CBC + DIFF - TRAZODONE 100 MG TABLET 4. Breast pain - ICD9: 611.71, ICD10: N64.4 5. Mass of lower inner quadrant of right breast - ICD9: 611.72, ICD10: N63.14 Endorse checking this at her earliest convenience - [facility] DIAGNOSTIC RT - BREAST LTD RT 6. Chronic right shoulder pain - ICD9: 719.41, 338.29, ICD10: M25.511, G89.29 HEP orthoinfo handout Meloxicam QD prn - CONSULT TO ORTHOPAEDICS - CONSULT TO PHYSICAL THERAPY 7. Encounter for well woman exam with routine gynecological exam - ICD9: V72.31, ICD10: Z01.419 - CONSULT TO IT SYSTEMS ANALYST CONSULTANT Did not complete labs today - endorse complete Scheduled mammogram, no other visit, stated needed to leave. Karen Mckee, STAIN MAKER.ADVERTISING SALES AGENT Medical Decision Making: Problems: Low: Acute, uncomplicated illness or injury, 2+ self-limited or minor problems and Stable chronic illness Data: Unique test(s) ordered: 2 Risk: Moderate: Drug management Medical Decision Making Level: 3 - Low documented in this encounter [facility] 04-20-2022 Miscellaneous Notes Pt requesting refill. JESUS: 05/12/21 NOV: 05/07/22 Last Refill: 03/05/22 Britt Murray LPN documented in this encounter [facility] 04-12-2022 History of Present illness Narrative POPULATION HEALTH NAVIGATION OUTREACH Action/FYI Left voicemail Pt identified by name and : NO Outreach Outcome/Action Unable to reach patient: Left message Hitwiset message sent Did you use a PCP flex slot to schedule this appointment? No Reason for Outreach Care Gap or Scheduling/Wellness visits Payer: Payor: [place] [employer] / Plan: [facility] MEDICAID / Product Type: Medicaid / [...] 2022 12:02 PM documented in this encounter [facility] 03-16-2022 History of Present illness Narrative Radiology Service Progress Note PATIENT NAME: Pat Medina DATE OF SERVICE: March 16, 2022 TIME: [...] 2022 8:36 AM documented in this encounter [facility] 03-16-2022 History of Present illness Narrative Subjective HPI Pat Medina is a 42 year old female who [...] & curettage,TAB ESOPHAGOGASTRODUODENOSCOPY TRANSORAL DIAGNOSTIC 11/01/11 EGD [facility] inpt H-pylori negative LIG/TRNSXJ FLP TUBE ABDL/VAG APPR UNI/BI 04/09/2006 Tubal ligation MYRINGOTOMY ASPIR&/EUSTACHIAN TUBE NFLTJ ANES 1994 Myringotomy/tubes OOPHORECTOMY PARTIAL/TOTAL UNI/BI left TONSILLECTOMY PRIMARY/SECONDARY <AGE 12 1987 Tonsillectomy ALLERGIES Pamprin Multi-Symptom [Jpthlbkaglzur-Uoqytqgm-Jqrlkjc], Buspar [Buspirone], Codeine, Lamotrigine, Nitrofurantoin Macrocrystal, and [...] Cancer Maternal Grandfather BLADDER Heart Maternal Grandfather PA & EMPHYSEMA Social History Tobacco Use Smoking [...] Pennie Clemente APRN.CNP documented in this encounter [facility] 03-16-2022 Instructions Pennie Clemente APRN.CNP - 03/16/2022 8:30 AM EDT ASSESSMENT/PLAN: 1. Splinter of finger - ICD9: 915.6, ICD10: S60.459A - XR DIGIT GENERAL 3V FRONTAL/LAT/OBL RIGHT - CONSULT PANEL TO ORTHOPAEDICS - warm water with epsom salt soaks 2-3 times daily, 15 minutes per time. Pennie Clemente APRN.CNP documented in this encounter [facility] 03-09-2022 Miscellaneous Notes VM not set up. [...] Violeta Howard RN documented in this encounter [facility] 01-20-2022 History of Present illness Narrative Subjective [...] & curettage,TAB ESOPHAGOGASTRODUODENOSCOPY TRANSORAL DIAGNOSTIC 11/01/11 EGD [facility] inpt H-pylori negative LIG/TRNSXJ FLP TUBE ABDL/VAG APPR UNI/BI 04/09/2006 Tubal ligation MYRINGOTOMY ASPIR&/EUSTACHIAN TUBE NFLTJ ANES 1994 Myringotomy/tubes OOPHORECTOMY PARTIAL/TOTAL UNI/BI left TONSILLECTOMY PRIMARY/SECONDARY <AGE 12 1987 Tonsillectomy ALLERGIES Pamprin Multi-Symptom [Sckupajhzmjbk-Nmsicybn-Lmcaiyu], Buspar [Buspirone], Codeine, Lamotrigine, Nitrofurantoin Macrocrystal, and [...] Cancer Maternal Grandfather BLADDER Heart Maternal Grandfather PA & EMPHYSEMA Social History Tobacco Use Smoking [...] or bulging. Nose: Congestion present. Mouth/Throat: Lips: Nelagoney. Mouth: Mucous membranes are moist. Pharynx: Oropharynx [...] of care. This note was generated using blur [employer] software. It may contain errors in wording, punctuation, or spelling. Galo Bernal APRN.LUIS DANIEL documented in this encounter [facility] 01-20-2022 Instructions Galo Bernal APRN.LUIS DANIEL - [...] concerning to you. documented in this encounter [facility] 01-05-2022 History of Present illness Narrative Nontoxic-appearing [...] plan of care will be seen at [facility]. Galo Bernal APRN.LUIS DANIEL documented in this encounter [facility] 12-18-2021 Miscellaneous Notes Pt called I asking for her blood type. She had a type and screen done in 08-10-05. Mailed to pt. Amber Minaya LPN documented in this encounter [facility] 03-09-2021 History of Present illness Narrative Radiology Service Progress Note PATIENT NAME: Pat Medina DATE OF SERVICE: March 09, 2021 TIME: [...] 2021 9:50 AM documented in this encounter [facility] 06-15-2016 History of Past i llness Narrative [...] of this encounter (statuses as of 12/22/2021) [facility] of Past [facility] Narrative* Problem Noted [...] of this encounter (statuses as of 01/05/2022) [facility] Narrative* Problem Noted [...] of this encounter (statuses as of 01/20/2022) [facility] Narrative* Problem Noted [...] of this encounter (statuses as of 03/08/2022) [facility] Narrative* Problem Noted [...] of this encounter (statuses as of 03/09/2022) [facility] Narrative* Problem Noted [...] of this encounter (statuses as of 03/16/2022) [facility] Narrative* Problem Noted [...] of this encounter (statuses as of 04/12/2022) [facility] Narrative* Problem Noted [...] of this encounter (statuses as of 04/20/2022) [facility] Narrative* Problem Noted [...] of this encounter (statuses as of 05/07/2022) [facility] Narrative* Problem Noted [...] of this encounter (statuses as of 05/11/2022) [facility] Narrative* Problem Noted [...] of this encounter (statuses as of 05/13/2022) [facility] Narrative* Problem Noted [...] of this encounter (statuses as of 05/26/2022) [facility] Narrative* Problem Noted [...] of this encounter (statuses as of 05/31/2022) [facility] Narrative* Problem Noted [...] of this encounter (statuses as of 06/01/2022) [facility] Narrative* Problem Noted [...] of this encounter (statuses as of 07/18/2022) [facility] Narrative* Problem Noted [...] of this encounter (statuses as of 08/11/2022) [facility] Narrative* Problem Noted [...] of this encounter (statuses as of 09/09/2022) [facility] Narrative* Problem Noted [...] of this encounter (statuses as of 09/09/2022) [facility] Narrative* Problem Noted [...] of this encounter (statuses as of 09/17/2022) [facility] Narrative* Problem Noted [...] of this encounter (statuses as of 12/01/2022) [facility] Narrative* Problem Noted [...] of this encounter (statuses as of 12/02/2022) [facility] Narrative* Problem Noted [...] of this encounter (statuses as of 01/11/2023) [facility] Narr[facility]* Problem Noted [...] of this encounter (statuses as of 02/09/2023) [facility] Narrative* Problem Noted [...] of this encounter (statuses as of 02/14/2023) [facility] Narrative* Problem Noted [...] of this encounter (statuses as of 02/14/2023) [facility] Narrative* Problem Noted [...] of this encounter (statuses as of 02/16/2023) [facility] Narrative* Problem Noted [...] of this encounter (statuses as of 03/07/2023) [facility] Narrative* Problem Noted [...] of this encounter (statuses as of 03/07/2023) [facility] Narrative* Problem Noted [...] of this encounter (statuses as of 03/08/2023) [facility] Narrative* Problem Noted [...] of this encounter (statuses as of 03/14/2023) [facility] Narrative* Problem Noted [...] of this encounter (statuses as of 03/19/2023) [facility]* Problem Noted [...] of this encounter (statuses as of 04/01/2023) [facility]* Problem Noted [...] of this encounter (statuses as of 04/11/2023) [facility]* Problem Noted [...] of this encounter (statuses as of 04/26/2023) [facility] Narrative* Problem Noted [...] of this encounter (statuses as of 04/26/2023) [facility] Narrative* Problem Noted [...] of this encounter (statuses as of 05/01/2023) [facility] N[facility]* Problem Noted [...] of this encounter (statuses as of 05/01/2023) [facility]* Problem Noted [...] of this encounter (statuses as of 05/01/2023) [facility]* Problem Noted [...] of this encounter (statuses as of 05/03/2023) [facility]* Problem Noted [...] of this encounter (statuses as of 05/05/2023) [facility]* Problem Noted [...] of this encounter (statuses as of 05/12/2023) [facility]* Problem Noted [...] of this encounter (statuses as of 05/12/2023) [facility]* Problem Noted [...] of this encounter (statuses as of 05/12/2023) [facility]* Problem Noted [...] of this encounter (statuses as of 05/13/2023) [facility]arr[facility]* Problem Noted [...] of this encounter (statuses as of 05/13/2023) [facility] [facility] Narrative* Problem Noted [...] of this encounter (statuses as of 05/16/2023) [facility] Narrative* Problem Noted [...] of this encounter (statuses as of 05/26/2023) [facility] Narrative* Problem Noted [...] of this encounter (statuses as of 06/17/2023) [facility] Narrative* Problem Noted [...] of this encounter (statuses as of 08/01/2023) [facility] Narrative* Problem Noted [...] of this encounter (statuses as of 08/02/2023) [facility] Narrative* Problem Noted [...] of this encounter (statuses as of 08/05/2023) [facility] Narrative* Problem Noted [...] of this encounter (statuses as of 08/09/2023) [facility] Narrative* Problem Noted [...] of this encounter (statuses as of 08/10/2023) [facility] Narrative* Problem Noted [...] of this encounter (statuses as of 08/11/2023) [facility] Narrative* Problem Noted [...] of this encounter (statuses as of 08/11/2023) [facility] Narrative* Problem Noted [...] of this encounter (statuses as of 08/12/2023) [facility] Narrative* Problem Noted [...] of this encounter (statuses as of 08/18/2023) [facility] Narrative* Problem Noted [...] of this encounter (statuses as of 08/23/2023) [facility] Narrative* Problem Noted [...] of this encounter (statuses as of 09/01/2023) [facility] Narrative* Problem Noted [...] of this encounter (statuses as of 09/02/2023) [facility] Narrative* Problem Noted [...] of this encounter (statuses as of 09/05/2023) [facility] Narrative* Problem Noted [...] of this encounter (statuses as of 09/05/2023) [facility] Narrative* Problem Noted [...] of this encounter (statuses as of 09/09/2023) [facility] Narrative* Problem Noted [...] of this encounter (statuses as of 09/13/2023) [facility] Narrative* Problem Noted [...] of this encounter (statuses as of 09/16/2023) [facility] Narrative* Problem Noted [...] of this encounter (statuses as of 09/16/2023) [facility] Past [facility] Narrative* Problem Noted [...] of this encounter (statuses as of 09/19/2023) [facility] Narrative* Problem Noted [...] of this encounter (statuses as of 09/27/2023) [facility] Narrative* Problem Noted [...] of this encounter (statuses as of 09/27/2023) [facility] Narrative* Problem Noted [...] of this encounter (statuses as of 10/03/2023) [facility] Narrative* Problem Noted [...] of this encounter (statuses as of 10/04/2023) [facility] Narrative* Problem Noted [...] of this encounter (statuses as of 10/11/2023) [facility] Narrative* Problem Noted [...] of this encounter (statuses as of 10/12/2023) [facility] History of Past illness Narrative* Problem Noted [...] of this encounter (statuses as of 10/14/2023) [facility] No data available for this section [facility]* Diagnosis Jaw pain- Primary History of tooth extraction, unspecified edentulism class documented in this encounter [facility] [employer] Phone[facility] Diagnosis Procedure not carried out- Primary Procedure not carried out for other reasons documented in this encounter [facility] note* Diagnosis Viral illness- Primary Unspecified viral infection, in conditions classified elsewhere and of unspecified site documented in this encounter [facility] note* Diagnosis Encounter for screening mammogram for breast cancer documented in this encounter [facility] note* Diagnosis Encounter for long-term current use of medication- Primary Insomnia, unspecified type documented in this encounter [facility] note* Diagnosis Splinter of finger- Primary [facility] Diagnosis Insomnia, unspecified type [facility] Diagnosis Insomnia, unspecified type- Primary [...] routine gynecological exam documented in this encounter [facility] note* Diagnosis Breast pain- Primary Mastodynia Mass of lower inner quadrant of right breast Encounter for screening mammogram for breast cancer [facility] Diagnosis Mass of right breast, unspecified quadrant- Primary Mass of right breast, unspecified quadrant [facility] Diagnosis Mass of right breast, unspecified quadrant [facility] Diagnosis Mass of right breast, unspecified quadrant- Primary [facility] Diagnosis Abnormal finding on radiological examination of breast- Primary Other (abnormal) findings on radiological examination of breast documented in this encounter [facility] note* Diagnosis Sore throat- Primary Acute pharyngitis URI, acute Acute upper respiratory infections of unspecified site [facility] Diagnosis Viral URI with cough- Primary Acute upper respiratory infections of unspecified site [facility] Diagnosis Panic attacks Panic 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 [facility] Diagnosis Coccydynia- Primary Other disorder of coccyx [facility] Diagnosis Panic attacks Panic 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 [facility] Diagnosis Tear of right glenoid labrum, subsequent encounter- Primary Chronic right shoulder pain Pain in joint, shoulder region [facility] Diagnosis Panic attacks Panic disorder [...] joint, shoulder region [facility] Diagnosis Tear of right glenoid labrum, subsequent encounter Chronic right shoulder pain Pain in joint, shoulder region [facility] Diagnosis Acute cystitis with hematuria- Primary Acute cystitis Tear of right glenoid labrum, subsequent encounter Chronic right shoulder pain Pain in joint, shoulder region [facility] Diagnosis Tear of right glenoid [...] of the cervix [facility] Diagnosis Dysuria- Primary [facility] Diagnosis Tear of right glenoid labrum, subsequent encounter Chronic right shoulder pain Pain in joint, shoulder region [facility] Diagnosis Chronic right shoulder pain- Primary Pain in joint, shoulder region Labral tear of shoulder, degenerative, right [facility] Diagnosis Tear of right glenoid labrum, subsequent encounter Chronic right shoulder pain Pain in joint, shoulder region [facility] Diagnosis Coccydynia- Primary Other disorder of coccyx [facility]* Diagnosis Tear of right glenoid labrum, subsequent encounter Chronic right shoulder pain Pain in joint, shoulder region [facility] Diagnosis Chronic right shoulder pain Pain in joint, shoulder region Labral tear of shoulder, degenerative, right [facility] Diagnosis Flu-like symptoms- Primary Other general symptoms URI, acute Acute upper respiratory infections of unspecified site [facility]* Diagnosis Tear of right glenoid labrum, subsequent encounter Chronic right shoulder pain Pain in joint, shoulder region [facility] Diagnosis Tear of right glenoid labrum, subsequent encounter- Primary Chronic right shoulder pain Pain in joint, shoulder region [facility] Diagnosis Biceps tendinitis of right upper extremity- Primary [facility]* Diagnosis Bicipital tendinitis of right shoulder- Primary Bicipital tenosynovitis Bicipital tendinitis of right shoulder Bicipital tenosynovitis [facility] Diagnosis Acute cough- Primary Viral bronchitis Acute bronchitis Bicipital tendinitis of right shoulder Bicipital tenosynovitis [facility]* Diagnosis Pre-op exam Preoperative examination, unspecified Bicipital tendonitis of right shoulder H/O chronic hepatitis Personal history of other diseases of digestive system Tobacco use disorder Marijuana use Cannabis abuse, unspecified Other migraine without status migrainosus, not intractable Congestive heart failure, unspecified HF chronicity, unspecified heart failure type (HCC) Bicipital tendinitis of right shoulder Bicipital tenosynovitis [facility] Diagnosis S/P shoulder surgery- Primary Other postprocedural status Tear of right glenoid labrum, subsequent encounter Chronic right shoulder pain Pain in joint, shoulder region [facility] Diagnosis S/P shoulder surgery- Primary Other postprocedural status Tear of right glenoid labrum, subsequent encounter [facility]* Diagnosis Bicipital tendinitis of right shoulder- Primary Bicipital tenosynovitis [facility]* Diagnosis S/P shoulder surgery- Primary Other postprocedural status [facility]* Diagnosis Post-op pain- Primary Other [...] Primary Bicipital tenosynovitis [facility]* Diagnosis Bicipital tendinitis of right [...] subsequent encounter [facility] Diagnosis Chronic right shoulder pain Pain in joint, shoulder region S/P shoulder surgery Other postprocedural status Post-op pain Other acute postoperative pain Tear of right glenoid labrum, subsequent encounter [facility] Diagnosis Chronic right shoulder pain- Primary Pain in joint, shoulder region S/P shoulder surgery Other postprocedural status Post-op pain Other acute postoperative pain documented in this encounter [facility] note* Diagnosis Encounter for screening mammogram for breast cancer [facility] Diagnosis Chronic right shoulder pain Pain in joint, shoulder region S/P shoulder surgery Other postprocedural status Post-op pain Other acute postoperative pain Tear of right glenoid labrum, subsequent encounter [facility] Diagnosis Chronic right shoulder pain- Primary Pain in joint, shoulder region Tear of right glenoid labrum, sequela Traumatic tear of right rotator cuff, unspecified tear extent, sequela S/P shoulder surgery Other postprocedural status Post-op pain Other acute postoperative pain [facility] Diagnosis Chronic right shoulder pain Pain in joint, shoulder region S/P shoulder surgery Other postprocedural status Post-op pain Other acute postoperative pain Tear of right glenoid labrum, subsequent encounter documented in this encounter [facility] note* Diagnosis Pre-op exam Preoperative examination, [...] labrum, subsequent encounter [facility] Diagnosis Pre-op exam Preoperative examination, unspecified Bicipital tendonitis of right shoulder H/O chronic hepatitis Personal history of other diseases of digestive system Tobacco use disorder Marijuana use Cannabis abuse, unspecified Other migraine without status migrainosus, not intractable Congestive heart failure, unspecified HF chronicity, unspecified heart failure type (HCC) Thrush- Primary Candidiasis of mouth documented in this encounter [facility] note* Diagnosis Pre-op exam Preoperative examination, [...] pain, unspecified chronicity documented in this encounter [facility] note* Diagnosis Pre-op exam Preoperative examination, [...] therapeutic drug monitoring documented in this encounter [facility] note* Diagnosis Pre-op exam Preoperative examination, [...] bronchitis Acute cough documented in this encounter [facility] note* Diagnosis Pre-op exam Preoperative examination, unspecified Bicipital tendonitis of right shoulder H/O chronic hepatitis Personal history of other diseases of digestive system Tobacco use disorder Marijuana use Cannabis abuse, unspecified Other migraine without status migrainosus, not intractable Congestive heart failure, unspecified HF chronicity, unspecified heart failure type (HCC) Viral bronchitis Acute bronchitis Acute cough documented in this encounter [facility] note* Diagnosis Acute cough Pre-op exam Preoperative examination, unspecified Bicipital tendonitis of right shoulder H/O chronic hepatitis Personal history of other diseases of digestive system Tobacco use disorder Marijuana use Cannabis abuse, unspecified Other migraine without status migrainosus, not intractable Congestive heart failure, unspecified HF chronicity, unspecified heart failure type (HCC) documented in this encounter [facility] note* Diagnosis Fever, unspecified fever cause [facility] Diagnosis Coccydynia Other disorder of coccyx [facility] Splinter of finger [facility] Diagnosis Pre-op exam Preoperative examination, unspecified [...] Other anxiety states [facility] Diagnosis Cough [facility] Diagnosis Pre-op exam Preoperative examination, [...] shoulder region, unspecified [facility] Diagnosis Pre-op exam Preoperative examination, [...] 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 [facility] Diagnosis Pre-op exam Preoperative examination, unspecified Bicipital tendonitis of right shoulder H/O chronic hepatitis Personal history of other diseases of digestive system Tobacco use disorder Marijuana use Cannabis abuse, unspecified Other migraine without status migrainosus, not intractable Congestive heart failure, unspecified HF chronicity, unspecified heart failure type (HCC) Finger pain, right- Primary Pain in limb [facility] Diagnosis Pre-op exam Preoperative examination, unspecified [...] 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 [facility] Diagnosis Pre-op exam Preoperative examination, [...] shoulder region, unspecified [facility] Diagnosis Pre-op exam Preoperative examination, [...] abuse, subsequent encounter [facility] Diagnosis Pre-op exam Preoperative examination, [...] left upper extremity [facility] Diagnosis Pre-op exam Preoperative examination, unspecified Bicipital tendonitis of right shoulder H/O chronic hepatitis Personal history of other diseases of digestive system Tobacco use disorder Marijuana use Cannabis abuse, unspecified Other migraine without status migrainosus, not intractable Congestive heart failure, unspecified HF chronicity, unspecified heart failure type (HCC) Rash- Primary Rash and other nonspecific skin eruption [facility] Diagnosis Pre-op exam Preoperative examination, [...] left upper extremity [facility] Diagnosis Pre-op exam Preoperative examination, [...] finger, initial encounter [facility] Diagnosis Pre-op exam Preoperative examination, unspecified Bicipital tendonitis of right shoulder H/O chronic hepatitis Personal history of other diseases of digestive system Tobacco use disorder Marijuana use Cannabis abuse, unspecified Other migraine without status migrainosus, not intractable Congestive heart failure, unspecified HF chronicity, unspecified heart failure type (HCC) Pain of right hand- Primary Pain in limb [facility] Diagnosis Pre-op exam Preoperative examination, unspecified Bicipital tendonitis of right shoulder H/O chronic hepatitis Personal history of other diseases of digestive system Tobacco use disorder Marijuana use Cannabis abuse, unspecified Other migraine without status migrainosus, not intractable Congestive heart failure, unspecified HF chronicity, unspecified heart failure type (HCC) Pain of right hand Pain in limb [facility] Diagnosis Pre-op exam Preoperative examination, [...] shoulder region, unspecified [facility] Diagnosis Pre-op exam Preoperative examination, unspecified [...] shoulder region, unspecified [facility] Diagnosis Pre-op exam Preoperative examination, unspecified Bicipital tendonitis of right shoulder H/O chronic hepatitis Personal history of other diseases of digestive system Tobacco use disorder Marijuana use Cannabis abuse, unspecified Other migraine without status migrainosus, not intractable Congestive heart failure, unspecified HF chronicity, unspecified heart failure type (HCC) S/P right rotator cuff repair Right shoulder pain, unspecified chronicity [facility] Diagnosis Pre-op exam Preoperative examination, [...] shoulder region, unspecified [facility] Diagnosis Pre-op exam Preoperative examination, [...] shoulder region, unspecified [facility] Diagnosis Pre-op exam Preoperative examination, unspecified Bicipital tendonitis of right shoulder H/O chronic hepatitis Personal history of other diseases of digestive system Tobacco use disorder Marijuana use Cannabis abuse, unspecified Other migraine without status migrainosus, not intractable Congestive heart failure, unspecified HF chronicity, unspecified heart failure type (HCC) Insomnia, unspecified type [facility] Diagnosis Pre-op exam Preoperative examination, unspecified [...] female climacteric states [facility] Diagnosis Pre-op exam Preoperative examination, [...] shoulder region, unspecified [facility] Diagnosis Pre-op exam Preoperative examination, unspecified Bicipital tendonitis of right shoulder H/O chronic hepatitis Personal history of other diseases of digestive system Tobacco use disorder Marijuana use Cannabis abuse, unspecified Other migraine without status migrainosus, not intractable Congestive heart failure, unspecified HF chronicity, unspecified heart failure type (HCC) Encounter for screening mammogram for breast cancer [facility] Diagnosis Pre-op exam Preoperative examination, [...] left upper extremity [facility] Diagnosis Pre-op exam Preoperative examination, unspecified [...] shoulder region, unspecified [facility] Diagnosis Pre-op exam Preoperative examination, [...] Other anxiety states [facility] Diagnosis Pre-op exam Preoperative examination, unspecified [...] rotator cuff repair [facility] Diagnosis Pre-op exam Preoperative examination, unspecified [...] shoulder region, unspecified [facility] Diagnosis Pre-op exam Preoperative examination, unspecified [...] of patient's decision [facility] Diagnosis Pre-op exam Preoperative examination, [...] shoulder region, unspecified [facility] [...] shoulder region, unspecified [facility] [...] rotator cuff repair documented in this encounter [facility] note* Diagnosis Pre-op exam Preoperative examination, [...] Other postprocedural status [facility] Diagnosis Pre-op exam Preoperative examination, [...] region and thigh [facility] Diagnosis Pre-op exam Preoperative examination, [...] pain, unspecified chronicity [facility] Diagnosis Pre-op exam Preoperative examination, [...] rx as needed [facility] Diagnosis Pre-op exam Preoperative examination, unspecified [...] pain, unspecified chronicity [facility] Diagnosis Pre-op exam Preoperative examination, [...] pain, unspecified chronicity [facility] Diagnosis Pre-op exam Preoperative examination, [...] pain, unspecified chronicity documented in this encounter [facility] note* Diagnosis Pre-op exam Preoperative examination, [...] Other postprocedural status documented in this encounter [facility] note* Diagnosis Pre-op exam Preoperative examination, [...] shoulder region, unspecified [facility] Diagnosis Pre-op exam Preoperative examination, [...] Other postprocedural status [facility] [facility] Diagnosis Pre-op exam Preoperative examination, [...] Other postprocedural status documented in this encounter [facility] Diagnosis Pre-op exam Preoperative examination, [...] Other postprocedural status documented in this encounter [facility] Diagnosis Pre-op exam Preoperative examination, [...] 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 note* Diagnosis Pre-op exam Preoperative examination, [...] extent, subsequent encounter documented in this encounter [facility] note* Diagnosis Pre-op exam Preoperative examination, [...] Other postprocedural status documented in this encounter [facility] note* Diagnosis Pre-op exam Preoperative examination, [...] of right shoulder documented in this encounter [facility] note* Diagnosis Pre-op exam Preoperative examination, [...] membrane, left ear documented in this encounter [facility] note* Diagnosis Pre-op exam Preoperative examination, [...] of right shoulder [facility] Diagnosis Pre-op exam Preoperative examination, [...] Other postprocedural status documented in this encounter [facility] Diagnosis Pre-op exam Preoperative examination, [...] pain, unspecified chronicity documented [facility] this encounter [facility] Diagnosis Pre-op exam Preoperative examination, [...] Anxiety state, unspecified [facility] Diagnosis Pre-op exam Preoperative examination, [...] Other postprocedural status documented in this [facility] Diagnosis Pre-op exam Preoperative examination, [...] depression type Marijuana use Cannabis abuse, unspecified Anxiety Anxiety state, unspecified documented in this encounter [facility] Discharge instructions* Attachments The following attachments cannot be sent through Care Everywhere. * Dental Surgery: Generic: Post-op (Turkish) [facility] Phone: Hospital Discharge instructions No data available for this section [facility] Progress note No data available for this section [facility] Reason for referral (narrative)* Diagnostic Procedure Only (Routine) - Pending Review Specialty Diagnoses / Procedures Referred By Charity menendez Referred To Contact [facility] IMAG[facility] Diagnoses Encounter for screening mammogram for breast cancer Procedures KEYON SCREENING SCREENING MAMMOGRAPHY BI 2-VIEW BREAST INC CAD Maile Norman MD [address] [place] [address] [facility] [address] [place] [address] Referral ID Status Reason Start Date Expiration Date Visits Requested Visits Authorized [id number] Pending Review Auto-Generat ed Referral 03/03/2022 04/02/2023 1 1 [facility] for referral (narrative)* Diagnostic Procedure Only (Routine) - Authorized Specialty Diagnoses / Procedures Referred By Contac t Referred To Contact [facility] IM[facility] Diagnoses Breast pain Mass of lower inner quadrant of right breast Procedures US BREAST LTD RT US BREAST UNI REAL TIME WITH IMAGE LIMITED Karen Mckee APRN.ADVERTISING SALES AGENT [address] [place] [address] [facility] [address] [place] [address] Referral ID Status Reason Start Date Expiration Date Visits Requested Visits Authorized [id number] Authorized Auto-Generat ed Referral 2 06/06/2023 1 1 * Consult, Test, Treat (Routine) - Authorized Specialty Diagnoses / Procedures Referred By Charity menendez Referred To Contact Diagnoses Encounter for well woman exam with routine gynecological exam Procedures CONSULT TO IT SYSTEMS ANALYST CONSULTANT OFFICE/OUTPATIENT NEW HIGH MDM 60-74 MINUTES Karen Mckee APRN.ADVERTISING SALES AGENT [address] [place] [address] Referral ID Status Reason Start Date Expiration Date Visits Requested Visits Authorized [id number] Authorized PCP Requested Referral Auto-Generate d Referral 2 05/07/2023 1 1 * Diagnostic Procedure Only (Routine) - Authorized Specialty Diagnoses / Procedures Referred By Charity menendez Referred To Contact [facility] Diagnoses Breast pain Mass of lower inner quadrant of right breast Procedures KEYON DIAGNOSTIC RT DIAGNOSTIC MAMMOGRAPHY COMPUTER-AIDED DETCJ UNI Karen Mckee APRN.ADVERTISING SALES AGENT [address] [place] [address] [facility] [address] [place] [address] Referral ID Status Reason Start Date Expiration Date Visits Requested Visits Authorized [id number] Authorized Auto-Generat ed Referral 2 06/06/2023 1 1 * Physical Therapy (Routine) - Pending Review Specialty Diagnoses / Procedures Referred By Charity menendez Referred To Contact [facility] Diagnoses Chronic right shoulder pain Procedures CONSULT TO PHYSICAL THERAPY PHYSICAL THERAPY EVALUATION HIGH COMPLEX 45 MINS Karen Mckee APRN.ADVERTISING SALES AGENT [address] [place] [address] [facility] [place] [address] [place] [address] Referral ID Status Reason Start Date Expiration Date Visits Requested Visits Authorized [id number] Pending Review Auto-Generat ed Referral 2 05/07/2023 1 1 * Consult, Test, Treat (Routine) - Authorized Specialty Diagnoses / Procedures Referred By Contac t Referred To Contact Orthopedics Diagnoses Chronic right shoulder pain Procedures CONSULT TO ORTHOPAEDICS OFFICE/OUTPATIENT [facility] 60-74 MINUTES Karen Mckee APRN.CNS [address] [place] [address] Referral ID Status Reason Start Date Expiration Date Visits Requested Visits Authorized [id number] Authorized PCP Requested Referral 2 05/07/2023 1 1 [facility] for referral (narrative)* Diagnostic Procedure Only (Routine) - Pending Review Specialty Diagnoses / Procedures Referred By Charity t Referred To Contact [facility] IM[facility] Diagnoses Breast pain Mass of lower inner quadrant of right breast Procedures KEYON DIAGNOSTIC BILAT DIAGNOSTIC MAMMOGRAPHY COMPUTER-AIDED DETCJ BI Sam Khan APRN.MARKING MACHINE OPERATOR [address] [place] [address] [facility] [address] [place] [address] Referral ID Status Reason Start Date Expiration Date Visits Requested Visits Authorized [id number] Pending Review Auto-Generat ed Referral 2 06/10/2023 1 1 [facility] for referral (narrative)* Diagnostic Procedure Only (Routine) - Pending Review Specialty Diagnoses / Procedures Referred By Contac t Referred To Contact BR IMAGING Diagnoses Mass of right breast, unspecified quadrant Procedures US BIOPSY BREAST RT BX BREAST W/DEVICE 1ST LESION ULTRASOUND Kuldeep Hoffman MD [address] [place] [address] [facility] [address] [place] [address] Referral ID Status Reason Start Date Expiration Date Visits Requested Visits Authorized [id number] Pending Review Auto-Generat ed Referral 2 06/25/2023 1 1 [facility] for referral (narrative)* Diagnostic Procedure Only (Routine) - Pending Review Specialty Diagnoses / Procedures Referred By Charity t Referred To Contact [facility] IMAG[facility] Diagnoses Abnormal finding on radiological examination of breast Procedures US BREAST LTD RT US BREAST UNI REAL TIME WITH IMAGE LIMITED Heidi Marcelino MD [address] [place] [address] [facility] Imaging [address] [place] [address] Referral ID Status Reason Start Date Expiration Date Visits Requested Visits Authorized [id number] Pending Review Auto-Generat ed Referral 05/31/2022 06/30/2023 1 1 * Diagnostic Procedure Only (Routine) - Pending Review Specialty Diagnoses / Procedures Referred By Charity menendez Referred To Contact [facility] Diagnoses Abnormal finding on radiological examination of breast Procedures KEYON DIAGNOSTIC BILAT DIAGNOSTIC MAMMOGRAPHY COMPUTER-AIDED DETCJ BI Heidi Marcelino MD [address] [place] [address] [facility] [address] [place] [address] Referral ID Status Reason Start Date Expiration Date Visits Requested Visits Authorized [id number] Pending Review Auto-Generat ed Referral 05/31/2022 06/30/2023 1 1 [facility] for referral (narrative)* Diagnostic Procedure Only (Routine) - Closed Specialty Diagnoses / Procedures Referred By Charity t Referred To Contact XR IMAGING Diagnoses Coccydynia Procedures XR SACRUM/COCCYX 3V AP/LAT RADEX SACRUM & COCCYX MINIMUM 2 VIEWS PatylogGayla carias APRN.MARKING MACHINE OPERATOR [address] [place] [address] X[facility] Imaging Referral ID Status Reason Start Date Expiration Date V isits Requested Visits Authorized [id number] Closed Auto-Generate d Referral 12/01/2022 12/31/2023 1 1 [facility] for referral (narrative)* Diagnostic Procedure Only (Routine) - Pending Review Specialty Diagnoses / Procedures Referred By Charity menendez Referred To Contact [facility] IMAG[facility] Diagnoses Encounter for screening mammogram for breast cancer Procedures KEYON SCREENING SCREENING MAMMOGRAPHY BI 2-VIEW BREAST INC Maile Garcia MD [address] [place] [address] [facility] [address] [place] [address] Referral ID Status Reason Start Date Expiration Date Visits Requested Visits Authorized [id number] Pending Review Auto-Generat ed Referral 02/09/2023 03/10/2024 1 1 [facility] for referral (narrative)* Diagnostic Procedure Only (Routine) - New Request Specialty Diagnoses / Procedures Referred By Charity menendez Referred To Contact [facility] IMAG[facility] Diagnoses Encounter for screening mammogram for breast cancer Procedures KEYON SCREENING W TERESITA SCREENING DIGITAL BREAST TOMOSYNTHESIS BI SCREENING MAMMOGRAPHY BI 2-VIEW BREAST INC Maile Garcia MD [address] [place] [address] [facility] [address] [place] [address] Referral ID Status Reason Start Date Expiration Date Visits Requested Visits Authorized [id number] New Request Auto-Generat ed Referral 01/11/2024 02/09/2025 1 1 [facility] for referral (narrative)* Diagnostic Procedure Only (Routine) - Closed Specialty Diagnoses / Procedures Referred By Charity t Referred To Contact XR IMAGING Diagnoses Coccydynia Procedures XR SACRUM/COCCYX 3V AP/LAT RADEX SACRUM & COCCYX MINIMUM 2 VIEWS Gayla Ayala APRN.CNP [address] [place] [address] [place] [address] Referral ID Status Reason Start Date Expiration Date V isits Requested Visits Authorized [id number] Closed Auto-Generate d Referral 12/01/2022 12/31/2023 1 1 [facility] for referral (narrative)* Diagnostic Procedure Only (Routine) - Closed Specialty Diagnoses / Procedures Referred By Contac t Referred To Contact XR IMAGING Diagnoses Splinter of finger Procedures XR DIGIT GENERAL 3V FRONTAL/LAT/OBL RIGHT RADEX FINGR MINIMUM 2 VIEWS Pennie Clemente, STAIN MAKER.MARKING MACHINE OPERATOR [address] [place] [address] [place] [address] Referral ID Status Reason Start Date Expiration Date V isits Requested Visits Authorized [id number] Closed Auto-Generate d Referral 03/16/2022 04/15/2023 1 1 [facility] for referral (narrative)* Diagnostic Procedure Only (Urgent) - Closed Specialty Diagnoses / Procedures Referred By Contac t Referred To Contact XR IMAGING Diagnoses Injury of left upper extremity, subsequent encounter Mass of left upper extremity Procedures XR FOREARM GENERAL 2V AP/LAT LEFT RADEX FOREARM 2 VIEWS Karen Mckee APRN.ADVERTISING SALES AGENT [address] [place] [address] [place] [address] Referral ID Status Reason Start Date Expiration Date V isits Requested Visits Authorized [id number] Closed Auto-Generate d Referral 05/10/2024 06/09/2025 1 1 [facility] for referral (narrative)* Diagnostic Procedure Only (Urgent) - New Request Specialty Diagnoses / Procedures Referred By Contac t Referred To Contact XR IMAGING Diagnoses Pain of right hand Procedures XR HAND GENERAL 3V PA/LAT/OBL RIGHT RADEX HAND MINIMUM 3 VIEWS Galo Bernal STAIN MAKER.MARKING MACHINE OPERATOR [address] [place] [address] [place] [address] Referral ID Status Reason Start Date Expiration Date Visits Requested Visits Authorized [id number] New Request Auto-Generat ed Referral 06/22/2025 1 1 E [facility] for referral (narrative)* Diagnostic Procedure Only (Urgent) - Closed Specialty Diagnoses / Procedures Referred By Contac t Referred To Contact XR IMAGING Diagnoses Pain of right hand Procedures XR HAND GENERAL 3V PA/LAT/OBL RIGHT RADEX HAND MINIMUM 3 VIEWS Galo Bernal APRN.MARKING MACHINE OPERATOR [address] [place] [address] [place] [address] Referral ID Status Reason Start Date Expiration Date V isits Requested Visits Authorized [id number] Closed Auto-Generate d Referral 05/23/2024 06/22/2025 1 1 [facility] for referral (narrative)* Diagnostic Procedure Only (Routine) - New Request Specialty Diagnoses / Procedures Referred By Contac t Referred To Contact BR IMAGING Diagnoses Encounter for screening mammogram for breast cancer Procedures KEYON SCREENING W TERESITA SCREENING DIGITAL BREAST TOMOSYNTHESIS BI SCREENING MAMMOGRAPHY BI 2-VIEW BREAST INC CAD Cecile Patricia APRN.MARKING MACHINE OPERATOR [address] [place] [address] [facility] [address] [place] [address] Referral ID Status Reason Start Date Expiration Date Visits Requested Visits Authorized [id number] New Request Auto-Generat ed Referral 07/09/2024 08/08/2025 1 1 [facility] for visit Narrative* Diagnostic Procedure Only (Routine) - Closed Specialty Diagnoses / Procedures Referred By Contac t Referred To Contact XR IMAGING Diagnoses Coccydynia Procedures XR SACRUM/COCCYX 3V AP/LAT RADEX SACRUM & COCCYX MINIMUM 2 VIEWS Gayla Ayala APRN.MARKING MACHINE OPERATOR [address] [place] [address] [place] [address] Referral ID Status Reason Start Date Expiration Date V isits Requested Visits Authorized [id number] Closed Auto-Generate d Referral 12/01/2022 12/31/2023 1 1 [facility] for visit Narrative* Diagnostic Procedure Only (Routine) - Closed Specialty Diagnoses / Procedures Referred By Contac t Referred To Contact XR IMAGING Diagnoses Splinter of finger Procedures XR DIGIT GENERAL 3V FRONTAL/LAT/OBL RIGHT RADEX FINGR MINIMUM 2 VIEWS Pennie Clemente, STAIN MAKER.MARKING MACHINE OPERATOR [address] [place] [address] [place] [address] Referral ID Status Reason Start Date Expiration Date V isits Requested Visits Authorized [id number] Closed Auto-Generate d Referral 03/16/2022 04/15/2023 1 1 [facility] for visit Narrative* Diagnostic Procedure Only (Urgent) - Closed Specialty Diagnoses / Procedures Referred By Contac t Referred To Contact XR IMAGING Diagnoses Injury of left upper extremity, subsequent encounter Mass of left upper extremity Procedures XR FOREARM GENERAL 2V AP/LAT LEFT RADEX FOREARM 2 VIEWS Karen Mckee, STAIN MAKER.ADVERTISING SALES AGENT [address] [place] [address] [place] [address] Referral ID Status Reason Start Date Expiration Date V isits Requested Visits Authorized [id number] Closed Auto-Generate d Referral 05/10/2024 06/09/2025 1 1 [facility] for visit Narrative* Diagnostic Procedure Only (Urgent) - Closed Specialty Diagnoses / Procedures Referred By Contac t Referred To Contact XR IMAGING Diagnoses Pain of right hand Procedures XR HAND GENERAL 3V PA/LAT/OBL RIGHT RADEX HAND MINIMUM 3 VIEWS Galo Bernal, STAIN MAKER.MARKING MACHINE OPERATOR [address] [place] [address] [place] [address] Referral ID Status Reason Start Date Expiration Date V isits Requested Visits Authorized [id number] Closed Auto-Generate d Referral 05/23/2024 06/22/2025 1 1 [facility] for visit Narrative* Diagnostic Procedure Only (Routine) - Closed Specialty Diagnoses / Procedures Referred By Contac t Referred To Contact XR IMAGING Diagnoses Right hip pain Procedures XR HIP BILATERAL 5V PEL/AP/LAT EACH HIP RADEX HIPS BILATERAL WITH PELVIS MINIMUM 5 VIEWS Sam Khan APRN.MARKING MACHINE OPERATOR [address] [place] [address] Phone: tel: fax: [place] [address] Referral ID Status Reason Start Date Expiration Date V isits Requested Visits Authorized [id number] Closed Auto-Generate d Referral 09/21/2024 10/21/2025 1 1 [facility] Summary Purpose Family History No Family History [...] FoundDocuments on File Type Date Recorded Patient Etl Application Developer Expl anation Advance Directive(s) Advance Directive(s) 12/30/2018 3:43 PM Advance Directive(s) 10/19/2018 9:14 PM Advance Directive(s) 07/02/2018 4:59 PM Advance Directive(s) 01/30/2018 1:31 PM Advance Directive(s) 01/23/2018 6:09 PM Reason for Referral Specialty Diagnoses / Procedures Referred By Contac t Referred To Contact Orthopedics Diagnoses Splinter of finger Procedures CONSULT PANEL TO ORTHOPAEDICS OFFICE/OUTPATIENT [facility] MDM 60-74 MINUTES Pennie Clemente, RIGOBERTO.MARKING MACHINE OPERATOR [address] [place] [address] Referral ID Status Reason Start Date Expiration Date Visits Requested Visits Authorized [id number] Authorized PCP Requested Referral 03/16/2022 03/16/2023 1 1 Specialty Diagnoses / Procedures Referred By Contac t Referred To Contact XR IMAGING Diagnoses Splinter of finger Procedures XR DIGIT GENERAL 3V FRONTAL/LAT/OBL RIGHT RADEX FINGR MINIMUM 2 VIEWS Pennie Clemente APRN.MARKING MACHINE OPERATOR [address] [place] [address] Xr Imaging Referral ID Status Reason Start Date Expiration Date V isits Requested Visits Authorized [id number] Closed Auto-Generate d Referral 03/16/2022 04/15/2023 1 1 Specialty Diagnoses / Procedures Referred By Contac t Referred To Contact General Surgery Diagnoses Mass of right breast, unspecified quadrant Procedures CONSULT TO GENERAL SURGERY OFFICE/OUTPATIENT [facility] 60-74 MINUTES Maile Norman MD [address] [place] [address] Referral ID Status Reason Start Date Expiration Date V isits Requested Visits Authorized [id number] Closed PCP Requested Referral 05/12/2022 05/12/2023 1 1 Specialty Diagnoses / Procedures Referred By Contac t Referred To Contact MR IMAGING Diagnoses Tear of right glenoid labrum, subsequent encounter Chronic right shoulder pain Procedures MRI SHOULDER WO/W IVCON RIGHT MRI ANY JT UPPER EXTREMITY W/O & W/CONTR MATRL Sam Khan APRN.MARKING MACHINE OPERATOR [address] [place], [place] [id number] [facility] Referral ID Status Reason Start Date Expiration Date Visits Requested Visits Authorized [id number] Pending Review Auto-Generat ed Referral 02/08/2023 03/09/2024 1 1 Specialty Diagnoses / Procedures Referred By Contac t Referred To Contact Pain Management Diagnoses Tear of right glenoid labrum, subsequent encounter Chronic right shoulder pain Procedures CONSULT TO PAIN MGT OFFICE/OUTPATIENT [facility] 60-74 MINUTES Sam Khan APRN.MARKING MACHINE OPERATOR [address] [place] [address] Referral ID Status Reason Start Date Expiration Date Visits Requested Visits Authorized [id number] Authorized PCP Requested Referral 02/08/2023 02/08/2024 1 1 Specialty Diagnoses / Procedures Referred By Contac t Referred To Contact Orthopedics Diagnoses Tear of right glenoid labrum, subsequent encounter Chronic right shoulder pain Procedures CONSULT TO ORTHOPAEDICS OFFICE/OUTPATIENT [facility] 60-74 MINUTES Sam Khan, RIGOBERTO.MARKING MACHINE OPERATOR [address] [place] [address] Referral ID Status Reason Start Date Expiration Date Visits Requested Visits Authorized [id number] Authorized PCP Requested Referral 04/24/2024 1 1 Specialty Diagnoses / Procedures Referred By Contac t Referred To Contact Gynecology Diagnoses Screening for cervical cancer Procedures CONSULT TO GYNECOLOGY OFFICE/OUTPATIENT [facility] 60-74 MINUTES Rick Anderson MD [address] [place] [address] Referral ID Status Reason Start Date Expiration Date Visits Requested Visits Authorized [id number] Authorized PCP Requested Referral Auto-Generate d Referral 04/30/2023 04/29/2024 1 1 Specialty Diagnoses / Procedures Referred By Contac t Referred To Contact [facility] Diagnoses Tachycardia Procedures ECG COMPLETE ECG ROUTINE ECG W/LEAST 12 LDS W/I&R Rick Anderson MD [address] [place], [place] [id number] [facility] [place] [address] [place] [address] Referral ID Status Reason Start Date Expiration Date Visits Requested Visits Authorized [id number] Pending Review Auto-Generat ed Referral 04/30/2023 04/29/2024 1 1 Specialty Diagnoses / Procedures Referred By Contac t Referred To Contact MR IMAGING Diagnoses Tear of right glenoid labrum, subsequent encounter Chronic right shoulder pain Procedures MRI SHOULDER WO/W IVCON RIGHT MRI ANY JT UPPER EXTREMITY W/O & W/CONTR Sam Espinoza APRN.MARKING MACHINE OPERATOR [address] [place] [phone] [place] [address] Referral ID Status Reason Start Date Expiration Date V isits Requested Visits Authorized [id number] Closed Auto-Generate d Referral 02/25/2023 06/26/2023 1 1 Specialty Diagnoses / Procedures Referred By Contac t Referred To Contact Orthopedics Diagnoses Chronic right shoulder pain Labral tear of shoulder, degenerative, right Procedures CONSULT TO ORTHOPAEDICS OFFICE/OUTPATIENT [facility] 60-74 MINUTES Charles Stanton APRN.MARKING MACHINE OPERATOR [address] [facility] [place] [id number] Antonio Rios MD [address] [place] [id number] Referral ID Status Reason Start Date Expiration Date Visits Requested Visits Authorized [id number] Authorized PCP Requested Referral 3 05/11/2024 1 1 Specialty Diagnoses / Procedures Referred By Contac t Referred To Contact Pain Management Diagnoses Coccydynia Procedures CONSULT TO PAIN MGT OFFICE/OUTPATIENT [facility] 60-74 MINUTES PodlogGayla carias APRN.MARKING MACHINE OPERATOR [address] [place] [address] Referral ID Status Reason Start Date Expiration Date Visits Requested Visits Authorized [id number] Authorized PCP Requested Referral 12/07/2022 12/06/2023 1 1 Specialty Diagnoses / Procedures Referred By Contac t Referred To Contact [facility] Diagnoses S/P shoulder surgery Procedures CONSULT TO PHYSICAL THERAPY PHYSICAL THERAPY EVALUATION HIGH COMPLEX 45 MINS Laura Martin PA-C [address] [place] [address] [facility] [place] [address] [place] [address] Referral ID Status Reason Start Date Expiration Date Visits Requested Visits Authorized [id number] Pending Review Auto-Generat ed Referral 09/05/2023 09/04/2024 1 1 Specialty Diagnoses / Procedures Referred By Contac t Referred To Contact MR IMAGING Diagnoses S/P right rotator cuff repair Right shoulder pain, unspecified chronicity Procedures MRI SHOULDER WO IVCON RIGHT MRI ANY JT UPPER EXTREMITY W/O CONTRAST Louis Kaufman MD [address] [place] [address] [place] [address] Referral ID Status Reason Start Date Expiration Date Visits Requested Visits Authorized [id number] New Request Auto-Generat ed Referral 02/07/2024 03/08/2025 1 1 Specialty Diagnoses / Procedures Referred By Contac t Referred To Contact General Surgery Diagnoses Injury of left upper extremity, subsequent encounter Mass of left upper extremity Procedures CONSULT TO GENERAL SURGERY OFFICE/OUTPATIENT [facility] MDM 60 MINUTES Karen Mckee APRN.ADVERTISING SALES AGENT [address] [place] [address] Referral ID Status Reason Start Date Expiration Date Visits Requested Visits Authorized [id number] Authorized PCP Requested Referral 05/10/2025 1 1 Specialty Diagnoses / Procedures Referred By Charity menendez Referred To Contact XR IMAGING Diagnoses Injury of left upper extremity, subsequent encounter Mass of left upper extremity Procedures XR FOREARM GENERAL 2V AP/LAT LEFT RADEX FOREARM 2 VIEWS Karen Mckee, STAIN MAKER.ADVERTISING SALES AGENT [address] [place] [address] [place] [address] Referral ID Status Reason Start Date Expiration Date V isits Requested Visits Authorized [id number] Closed Auto-Generate d Referral 05/10/2024 06/09/2025 1 1 Referral ID Status Reason Start Date Expiration Date V isits Requested Visits Authorized [id number] Closed Auto-Generate d Referral 06/06/2024 07/06/2024 1 [...] section and content) DATE CREATED AUTHOR 07/04/2018 [facility] DATE CREATED AUTHOR AUTHOR'S ORGANIZ ATION 12/15/2021 [facility] DATE CREATED AUTHOR AUTHOR'S ORGANIZ ATION 02/17/2024 [facility] ([place]) DATE CREATED AUTHOR AUTHOR'S ORGANIZ ATION 02/19/2024 [facility] DATE CREATED AUTHOR AUTHOR'S ORGANIZ ATION 10/17/2024 [facility] DATE CREATED AUTHOR AUTHOR'S ORGANIZ ATION 12/09/2024 [facility] DATE CREATED AUTHOR AUTHOR'S ORGANIZ ATION 12/13/2024 [facility] DATE CREATED AUTHOR AUTHOR'S ORGANIZ ATION 12/13/2024 [facility] Reason for Visit (unrecogniz ed section and content) Reason Comments PT Eval Specialty Diagnoses / Procedures Referred By Contac t Referred To Contact [facility] Diagnoses S/P right rotator cuff repair Right shoulder pain, unspecified chronicity Procedures CONSULT TO PHYSICAL THERAPY PHYSICAL THERAPY EVALUATION [facility] 45 MINS Laura Martin PA-C [address] [place] [address] Phone: tel: fax: [facility] [address] [place] [address] Referral ID Status Reason Start Date Expiration Date Visits Requested Visits Authorized [id number] Authorized Auto-Generat ed Referral 06/27/2024 06/26/2025 8 8 Reason Comments PT Progress Note Specialty Diagnoses / Procedures Referred By Contac t Referred To Contact Physical Therapy / PHYSICAL THERAPY Diagnoses right shoulder post op Procedures NEW RS PT ORTH MSK Self Yodit Baker, PT Referral ID Status Reason Start Date Expiration Date V isits Requested Visits Authorized [id number] Authorized 06/27/2023 06/26/2024 30 30 Reason Comments [...] quadrant Procedures CONSULT TO GENERAL SURGERY OFFICE/OUTPATIENT [facility] MDM 60-74 MINUTES Maile Norman MD [address] [place] [address] Referral ID Status Reason Start Date Expiration Date V isits Requested Visits Authorized [id number] Closed PCP Requested Referral 05/12/2022 05/12/2023 1 [...] Request Reason Comments Acute Visit Area to [facility] fee ls abnormal x1 month Reason Comments Shoulder Injury of right shoulder an d requesting a MRI with contrast. This was a work related injury but due to paperwork issues the claim was closed. Has an deputy commonwealth's attorney trying to appeal the decision. Consult [...] like a referral to ortho at [facility] to discuss options Reason Comments Medication Problem [...] EXTREMITY W/O & W/CONTR MATRL Sam Khan APRN.MARKING MACHINE OPERATOR [address] [place] [address] [place] [id number] Referral ID Status Reason Start Date Expiration Date V isits Requested Visits Authorized [id number] Closed Auto-Generate d Referral 02/25/2023 06/26/2023 1 1 Reason Comments Referral Information Reason Onset Date Comments Refill Request 05/12/2023 Reason Comments New Patient Right shoulder Pain - Labrial Tear - 01/03 Reason Onset Date Comments Refill Request 05/25/2023 Reason Comments Pain New Referred by Charles Stanton Specialty Diagnoses / Procedures Referred By Contac t Referred To Contact Orthopedics Diagnoses Chronic right shoulder pain Labral tear of shoulder, degenerative, right Procedures CONSULT TO ORTHOPAEDICS OFFICE/OUTPATIENT [facility] MDM 60-74 MINUTES Charles Stanton APRN.LUIS DANIEL [address] [place] [address] Antonio Rios MD [address] [place] [address] Referral ID Status Reason Start Date Expiration Date V isits Requested Visits Authorized [id number] Closed PCP Requested Referral 05/12/2023 05/11/2024 1 [...] Pt requesting appt Reason Comments ER F/U [facility] 02/26/24 & 02/26 CT scan which showed possible pneumonia, WBC elevated, Right leg pain/swelling Reason Comments Patient Request Reason Comments ED Follow-up [facility] ER follow up fro m [...] wanted General Surgery consult f axed to [place] Reason Onset Date Comments Refill Request 06/08/2024 Specialty Diagnoses / Procedures [facility] To Contact [facility] Diagnoses S/P right rotator cuff repair Right shoulder pain, unspecified chronicity Procedures MRI SHOULDER WO IVCON RIGHT MRI ANY JT UPPER EXTREMITY W/O CONTRAST MATRL Louis Valencia MD [address] [facility]. [address] [place] [address] [place] [id number] Referral ID Status Reason Start Date Expiration Date V isits Requested Visits Authorized [id number] Closed Auto-Generate d Referral 06/06/2024 07/06/2024 1 [...] Mri Specialty Diagnoses / Procedures [facility] Referred To Contact Orthopedics / ORTHOPAEDIC SURGERY Diagnoses injection, MRI results Procedures DENISE ESTABLISH Louis Valencia MD [address] [place] [address] Louis Valencia MD [address] [place] [address] Referral ID Status Reason Start Date Expiration Date Visits Requested Visits Authorized [id number] New Request Financial Clearance Required - [employer] Payor 07/27/2024 10/25/2024 1 1 Reason Onset Date Comments Refill Request 08/03/2024 Reason Comments Pre-Op Exam Excision of cyst on left forearm with Dr. Cordova scheduled for 07/13/24 at [facility] Reason Comments Clinical Update Reason [...] n out of car. Police Report # [id number] Reason Onset Date Comments Refill Request 12/10/2024 Ordered Prescriptions (unrec ognized section and content) [...] Care Teams (unrecognized sec tion and content) Gymnastics Coach Or Instructor Relationship Specialty Start Date End Date Maile Norman PCP - General 05/09/16 Gymnastics Coach Or Instructor Relationship Specialty Start Date End Date Maile Norman MD [address] [place] [address] PCP - General Internal Medicine 02/24/12 Gymnastics Coach Or Instructor Relationship Specialty Start Date End Date Maile Norman MD [facility] [place] [address] PCP - General Internal Medicine 02/24/12 Gymnastics Coach Or Instructor Relationship Specialty Start Date End Date Maile Norman MD [address] [place] [address] PCP - General Internal Medicine 02/24/12 Gymnastics Coach Or Instructor Relationship Specialty Start Date End Date Maile Norman MD [address] [place] [address] PCP - General Internal Medicine 02/24/12 Gymnastics Coach Or Instructor Relationship Specialty Start Date End Date Maile Norman MD [address] [facility] [address] PCP - General Internal Medicine 02/24/12 Gymnastics Coach Or Instructor Relationship Specialty Start Date End Date Maile Norman MD [address] [place] [address] PCP - General Internal Medicine 02/24/12 Gymnastics Coach Or Instructor Relationship Specialty Start Date End Date Maile Norman MD [address] [place] [address], [place] [address] PCP - General Internal Medicine 02/24/12 Gymnastics Coach Or Instructor Relationship Specialty Start Date End Date Maile Norman MD [address] [place] [address], [place] [address] PCP - General Internal Medicine 02/24/12 Gymnastics Coach Or Instructor Relationship Specialty [place] [address] [place] [address], [place] [address] PCP - General Internal Medicine 02/24/12 Gymnastics Coach Or Instructor Relationship Specialty Start Date End Date Maile Norman MD [address] [place] [address], [place] [address] PCP - General Internal Medicine 02/24/12 Gymnastics Coach Or Instructor Relationship Specialty Start Date End Date Maile Norman MD [address] [facility] [address] PCP - General Internal Medicine 02/24/12 Gymnastics Coach Or Instructor Relationship Specialty Start Date End Date Maile Norman MD [address] [place] [address], [place] [address] PCP - General Internal Medicine 02/24/12 Gymnastics Coach Or Instructor Relationship Specialty Start Date End Date Maile Norman MD [address] [place] [address] PCP - General Internal Medicine 02/24/12 Gymnastics Coach Or Instructor Relationship Specialty Start Date End Date Maile Norman MD [address] [place] [address] PCP - General Internal Medicine 02/24/12 Gymnastics Coach Or Instructor Relationship Specialty Start Date End Date Maile Norman MD [address] [place] [address] PCP - General Internal Medicine 02/24/12 Gymnastics Coach Or Instructor Relationship Specialty Start Date End Date Maile Norman MD [address] [place] [address] PCP - General Internal Medicine 02/24/12 Gymnastics Coach Or Instructor Relationship Specialty Start Date End Date Maile Norman MD [address] [place] [address] PCP - General Internal Medicine 02/24/12 Gymnastics Coach Or Instructor Relationship Specialty Start Date End Date Maile Norman MD [address] [place] [address] PCP - General Internal Medicine 02/24/12 Gymnastics Coach Or Instructor Relationship Specialty Start Date End Date Maile Norman MD [address] [place] [address] PCP - General Internal Medicine 02/24/12 Gymnastics Coach Or Instructor Relationship Specialty Start Date End Date Maile Norman MD [address] [place] [address] PCP - General Internal Medicine 02/24/12 Gymnastics Coach Or Instructor Relationship Specialty Start Date End Date Maile Norman MD [address] [place] [address] PCP - General Internal Medicine 02/24/12 Gymnastics Coach Or Instructor Relationship Specialty Start Date End Date Maile Norman MD [address] [place] [address] PCP - General Internal Medicine 02/24/12 Gymnastics Coach Or Instructor Relationship Specialty Start Date End Date Maile Norman MD [address] [place] [address] PCP - General Internal Medicine 02/24/12 Gymnastics Coach Or Instructor Relationship Specialty Start Date End Date Maile Norman MD [address] [place] [address] PCP - General Internal Medicine 02/24/12 Gymnastics Coach Or Instructor Relationship Specialty Start Date End Date Maile Norman MD [address] [place] [address] PCP - General Internal Medicine 02/24/12 Gymnastics Coach Or Instructor Relationship Specialty Start Date End Date Maile Norman MD [address] [place] [address] PCP - General Internal Medicine 02/24/12 Gymnastics Coach Or Instructor Relationship Specialty Start Date End Date Maile Norman MD [address] [place] [address] PCP - General Internal Medicine 02/24/12 Gymnastics Coach Or Instructor Relationship Specialty Start Date End Date Maile Norman MD [address] [place] [address] PCP - General Internal Medicine 02/24/12 Gymnastics Coach Or Instructor Relationship Specialty Start Date End Date Maile Norman MD [address] [place] [address] PCP - General Internal Medicine 02/24/12 Gymnastics Coach Or Instructor Relationship Specialty Start Date End Date Maile Norman MD [address] [place] [address] PCP - General Internal Medicine 02/24/12 Gymnastics Coach Or Instructor Relationship Specialty Start Date End Date Maile Norman MD [address] [place] [address] PCP - General Internal Medicine 02/24/12 Gymnastics Coach Or Instructor Relationship Specialty Start Date End Date Maile Norman MD [address] [place] [address] PCP - General Internal Medicine 02/24/12 Gymnastics Coach Or Instructor Relationship Specialty Start Date End Date Maile Norman MD [address] [place] [address] PCP - General Internal Medicine 02/24/12 Gymnastics Coach Or Instructor Relationship Specialty Start Date End Date Maile Norman MD [address] [place] [address] PCP - General Internal Medicine 02/24/12 Charles Stanton APRN.MARKING MACHINE OPERATOR [address] [place] [address] Referring Pain Management 05/18/23 Gymnastics Coach Or Instructor Relationship Specialty Start Date End Date Maile Norman MD [address] [place] [address] PCP - General Internal Medicine 02/24/12 Charlse Stanton APRN.MARKING MACHINE OPERATOR [address] [place] [address] Referring Pain Management 05/18/23 Gymnastics Coach Or Instructor Relationship Specialty Start Date End Date Maile Norman MD [address] [place], [place] 458091 PCP - General Internal Medicine 02/24/12 Charles Stanton APRN.MARKING MACHINE OPERATOR [address] [place] [address] Referring Pain Management 05/18/23 Gymnastics Coach Or Instructor Relationship Specialty Start Date End Date Maile Norman MD [address] [place], [place] 862771 PCP - General Internal Medicine 02/24/12 Charles Stanton, RIGOBERTO.MARKING MACHINE OPERATOR [address] [place] [address] Referring Pain Management 05/18/23 Gymnastics Coach Or Instructor Relationship Specialty Start Date End Date Maile Norman MD [address] [place], [place] 508941 PCP - General Internal Medicine 02/24/12 Charles Stanton APRN.MARKING MACHINE OPERATOR [address] [place] [address] Referring Pain Management 05/18/23 Gymnastics Coach Or Instructor Relationship Specialty Start Date End Date Maile Norman MD [address] [place] [address] PCP - General Internal Medicine 02/24/12 [facility] STAIN MAKER.MARKING MACHINE OPERATOR [address] [place] [address] Referring Pain Management 05/18/23 Gymnastics Coach Or Instructor Relationship Specialty Start Date End Date Maile Norman MD [address] [place], [place] 873041 PCP - General Internal Medicine 02/24/12 [facility], Charles, STAIN MAKER.MARKING MACHINE OPERATOR [address] [place] [address] Referring Pain Management 05/18/23 Gymnastics Coach Or Instructor Relationship Specialty Start Date End Date Maile Norman MD [address] [place], [place] 702501 PCP - General Internal Medicine 02/24/12 [facility], Charles, STAIN MAKER.MARKING MACHINE OPERATOR [address] [place] [address] Referring Pain Management 05/18/23 Gymnastics Coach Or Instructor Relationship Specialty Start Date End Date Maile Norman MD [address] [place], [place] 236541 PCP - General Internal Medicine 02/24/12 [facility], Charles, STAIN MAKER.MARKING MACHINE OPERATOR [address] [place] [address] Referring Pain Management 05/18/23 Gymnastics Coach Or Instructor Relationship Specialty Start Date End Date Maile Norman MD [address] [place], [place] 515791 PCP - General Internal Medicine 02/24/12 Prebish, Charles, STAIN MAKER.MARKING MACHINE OPERATOR [address] [place] [address] Referring Pain Management 05/18/23 Gymnastics Coach Or Instructor Relationship Specialty Start Date End Date Maile Norman MD [address] [place], [place] 738191 PCP - General Internal Medicine 02/24/12 Prebish, Charles, STAIN MAKER.MARKING MACHINE OPERATOR [address] [place] [address] Referring Pain Management 05/18/23 Gymnastics Coach Or Instructor Relationship Specialty Start Date End Date Maile Norman MD [address] [place], [place] 932551 PCP - General Internal Medicine 02/24/12 Prebish, Charles, STAIN MAKER.MARKING MACHINE OPERATOR [address] [place] [address] Referring Pain Management 05/18/23 Gymnastics Coach Or Instructor Relationship Specialty Start Date End Date Maile Norman MD [address] [place], [place] 679101 PCP - General Internal Medicine 02/24/12 Prebish, Charles, STAIN MAKER.MARKING MACHINE OPERATOR [address] [place] [address] Referring Pain Management 05/18/23 Gymnastics Coach Or Instructor Relationship Specialty Start Date End Date Maile Norman MD [address] [place], [place] 596401 PCP - General Internal Medicine 02/24/12 Prebish, Charles, STAIN MAKER.MARKING MACHINE OPERATOR [address] [place] [address] Referring Pain Management 05/18/23 Gymnastics Coach Or Instructor Relationship Specialty Start Date End Date Maile Norman MD [address] [place], [place] 683971 PCP - General Internal Medicine 02/24/12 Prebish, Charles, STAIN MAKER.MARKING MACHINE OPERATOR [address] [place] [address] Referring Pain Management 05/18/23 Gymnastics Coach Or Instructor Relationship Specialty Start Date End Date Maile Norman MD [address] [place] [address] PCP - General Internal Medicine 02/24/12 Prebish, Charles, STAIN MAKER.MARKING MACHINE OPERATOR [address] [place] [address] Referring Pain Management 05/18/23 Gymnastics Coach Or Instructor Relationship Specialty Start Date End Date Maile Norman MD [address] [place], [place] 635231 PCP - General Internal Medicine 02/24/12 Prebish, Charles, STAIN MAKER.MARKING MACHINE OPERATOR [address] [place] [address] Referring Pain Management 05/18/23 Gymnastics Coach Or Instructor Relationship Specialty Start Date End Date Maile Norman MD [address] [place], [place] 244221 PCP - General Internal Medicine 02/24/12 PrelucyshCharles, STAIN MAKER.MARKING MACHINE OPERATOR [address] [place] [address] Referring Pain Management 05/18/23 Gymnastics Coach Or Instructor Relationship Specialty Start Date End Date Maile Norman MD [address] [place] [address] PCP - General Internal Medicine 02/24/12 Prelucysh, Charles, STAIN MAKER.MARKING MACHINE OPERATOR [address] [place] [address] Referring Pain Management 05/18/23 Gymnastics Coach Or Instructor Relationship Specialty Start Date End Date Maile Norman MD [address] [place] [address] PCP - General Internal Medicine 02/24/12 Prenicholas, Charles, STAIN MAKER.MARKING MACHINE OPERATOR [address] [place] [address] Referring Pain Management 05/18/23 Gymnastics Coach Or Instructor Relationship Specialty Start Date End Date Maile Norman MD [address] [place] [address] PCP - General Internal Medicine 02/24/12 Prelucysh, Charles, STAIN MAKER.MARKING MACHINE OPERATOR [address] [place] [address] Referring Pain Management 05/18/23 Gymnastics Coach Or Instructor Relationship Specialty Start Date End Date Maile Norman MD [address] [place], [place] 061421 PCP - General Internal Medicine 02/24/12 Prebish, Charles, STAIN MAKER.MARKING MACHINE OPERATOR [address] [place] [address] Referring Pain Management 05/18/23 Gymnastics Coach Or Instructor Relationship Specialty Start Date End Date Maile Norman MD [address] [place], [place] 442121 PCP - General Internal Medicine 02/24/12 Prebish, Charles, STAIN MAKER.MARKING MACHINE OPERATOR [address] [place] [address] Referring Pain Management 05/18/23 Gymnastics Coach Or Instructor Relationship Specialty Start Date End Date Maile Norman MD [address] [place], [place] 854171 PCP - General Internal Medicine 02/24/12 Prebish, Charles, STAIN MAKER.MARKING MACHINE OPERATOR [address] [place] [address] Referring Pain Management 05/18/23 Gymnastics Coach Or Instructor Relationship Specialty Start Date End Date Maile Norman MD [address] [place] [address] PCP - General Internal Medicine 02/24/12 Prebish, Charles, STAIN MAKER.MARKING MACHINE OPERATOR [address] [place] [address] Referring Pain Management 05/18/23 Gymnastics Coach Or Instructor Relationship Specialty Start Date End Date Maile Norman MD [address] [place], [place] 514621 PCP - General Internal Medicine 02/24/12 Prebish, Charles, STAIN MAKER.MARKING MACHINE OPERATOR [address] [place] [address] Referring Pain Management 05/18/23 Gymnastics Coach Or Instructor Relationship Specialty Start Date End Date Maile Norman MD [address] [place], [place] 309911 PCP - General Internal Medicine 02/24/12 Prebish, Charles, STAIN MAKER.MARKING MACHINE OPERATOR [address] [place] [address] Referring Pain Management 05/18/23 Gymnastics Coach Or Instructor Relationship Specialty Start Date End Date Maile Norman MD [address] [place], [place] 239671 PCP - General Internal Medicine 02/24/12 Prebish, Charles, STAIN MAKER.MARKING MACHINE OPERATOR [address] [place] [address] Referring Pain Management 05/18/23 Gymnastics Coach Or Instructor Relationship Specialty Start Date End Date Maile Norman MD [address] [place], [place] 243951 PCP - General Internal Medicine 02/24/12 Prebish, Charles, STAIN MAKER.MARKING MACHINE OPERATOR [address] [place] [address] Referring Pain Management 05/18/23 Gymnastics Coach Or Instructor Relationship Specialty Start Date End Date Maile Norman MD [address] [place], [place] 642511 PCP - General Internal Medicine 02/24/12 Prebish, Charles, STAIN MAKER.MARKING MACHINE OPERATOR [address] [place] [address] Referring Pain Management 05/18/23 Gymnastics Coach Or Instructor Relationship Specialty Start Date End Date Maile Norman MD [address] [place], [place] 127231 PCP - General Internal Medicine 02/24/12 Prebish, Charles, STAIN MAKER.MARKING MACHINE OPERATOR [address] [place] [address] Referring Pain Management 05/18/23 Gymnastics Coach Or Instructor Relationship Specialty Start Date End Date Maile Norman MD [address] [place], [place] 878751 PCP - General Internal Medicine 02/24/12 Prebish, Charles, STAIN MAKER.MARKING MACHINE OPERATOR [address] [place] [address] Referring Pain Management 05/18/23 Gymnastics Coach Or Instructor Relationship Specialty Start Date End Date Maile Norman MD [address] [place] [address] PCP - General Internal Medicine 02/24/12 Gymnastics Coach Or Instructor Relationship Specialty Start Date End Date Maile Norman MD [address] [place], [place] 214371 PCP - General Internal Medicine 02/24/12 Gymnastics Coach Or Instructor Relationship Specialty Start Date End Date Maile Norman MD [address] [place], [place] 376331 PCP - General Internal Medicine 02/24/12 Charles Stanton APRN.MARKING MACHINE OPERATOR [address] [place] [address] Referring Pain Management 05/18/23 Gymnastics Coach Or Instructor Relationship Specialty Start Date End Date Maile Norman MD [address] [place], [place] 880361 PCP - General Internal Medicine 02/24/12 Charles Stanton APRN.MARKING MACHINE OPERATOR [address] [place] [address] Referring Pain Management 05/18/23 Gymnastics Coach Or Instructor Relationship Specialty Start Date End Date Maile Norman MD [address] [place], [place] 206991 PCP - General Internal Medicine 02/24/12 Charles Stanton APRN.MARKING MACHINE OPERATOR [address] [place], [place] 376845 Referring Pain Management 05/18/23 Gymnastics Coach Or Instructor Relationship Specialty Start Date End Date Maile Norman MD [address] [place], [place] 826051 PCP - General Internal Medicine 02/24/12 Charles Stanton APRN.MARKING MACHINE OPERATOR [address] [place] [address] Referring Pain Management 05/18/23 Gymnastics Coach Or Instructor Relationship Specialty Start Date End Date Maile Norman MD [address] [place] [address] PCP - General Internal Medicine 02/24/12 Charles Stanton APRN.MARKING MACHINE OPERATOR [address] [place] [address] Referring Pain Management 05/18/23 Gymnastics Coach Or Instructor Relationship Specialty Start Date End Date Maile Norman MD [address] [place] [address] PCP - General Internal Medicine 02/24/12 Charles Stanton APRN.MARKING MACHINE OPERATOR [address] [place] [address] Referring Pain Management 05/18/23 Gymnastics Coach Or Instructor Relationship Specialty Start Date End Date Maile Norman MD [address] [place] [address] PCP - General Internal Medicine 02/24/12 Charles Stanton APRN.MARKING MACHINE OPERATOR [address] [place] [address] Referring Pain Management 05/18/23 Gymnastics Coach Or Instructor Relationship Specialty Start Date End Date Maile Norman MD [address] [place] [address] PCP - General Internal Medicine 02/24/12 Charles Stanton APRN.MARKING MACHINE OPERATOR [address] [place] [address] Referring Pain Management 05/18/23 Gymnastics Coach Or Instructor Relationship Specialty Start Date End Date Maile Norman MD [address] [place], [place] 027261 PCP - General Internal Medicine 02/24/12 Charles Stanton APRN.MARKING MACHINE OPERATOR [address] [place] [address] Referring Pain Management 05/18/23 Gymnastics Coach Or Instructor Relationship Specialty Start Date End Date Maile Norman MD [address] [place], [place] 250851 PCP - General Internal Medicine 02/24/12 Charles Stanton, STAIN MAKER.MARKING MACHINE OPERATOR [address] [place] [address] Referring Pain Management 05/18/23 Gymnastics Coach Or Instructor Relationship Specialty Start Date End Date Maile Norman MD [address] [place] [address] PCP - General Internal Medicine 02/24/12 Charles Stanotn APRN.MARKING MACHINE OPERATOR [address] [place] [address] Referring Pain Management 05/18/23 Gymnastics Coach Or Instructor Relationship Specialty Start Date End Date Maile Norman MD [address] [place], [place] 235891 PCP - General Internal Medicine 02/24/12 Charles Stanton APRN.MARKING MACHINE OPERATOR [address] [place] [address] Referring Pain Management 05/18/23 Karen Mckee APRN.ADVERTISING SALES AGENT [address] [place] [address] Schedule Manager Internal Medicine 06/04/24 Sam Khan APRN.MARKING MACHINE OPERATOR [address] [place] [address] Schedule Manager Internal Medicine 06/04/24 Gymnastics Coach Or Instructor Relationship Specialty Start Date End Date Maile Norman MD [address] [place] [address] PCP - General Internal Medicine 02/24/12 Charles Stanton APRN.MARKING MACHINE OPERATOR [address] [place] [address] Referring Pain Management 05/18/23 Karen Mckee APRN.ADVERTISING SALES AGENT [address] [place] [address] Schedule Manager Internal Medicine 06/04/24 Sam Khan APRN.MARKING MACHINE OPERATOR [address] [place] [address] Schedule Manager Internal Medicine 06/04/24 Gymnastics Coach Or Instructor Relationship Specialty Start Date End Date Maile Norman MD [address] [place] [address] PCP - General Internal Medicine 02/24/12 Charles Stanton APRN.MARKING MACHINE OPERATOR [address] [place] [address] Referring Pain Management 05/18/23 Karen Mckee APRN.ADVERTISING SALES AGENT [address] [place] [address] Schedule Manager Internal Medicine 06/04/24 Sam Khan APRN.MARKING MACHINE OPERATOR [address] [place] [address] Schedule Manager Internal Medicine 06/04/24 Gymnastics Coach Or Instructor Relationship Specialty Start Date End Date Maile Norman MD [address] [place] [address] PCP - General Internal Medicine 02/24/12 Charles Stanton APRN.MARKING MACHINE OPERATOR [address] [place] [address] Referring Pain Management 05/18/23 Karen Mckee APRN.ADVERTISING SALES AGENT [address] [place] [address] Schedule Manager Internal Medicine 06/04/24 Sam Khan STAIN MAKER.MARKING MACHINE OPERATOR [facility]0 [place], [place] 752241 Schedule Manager Internal Medicine 06/04/24 Gymnastics Coach Or Instructor Relationship Specialty Start Date End Date Maile Norman MD [address] [place], [place] 937591 PCP - General Internal Medicine 02/24/12 Charles Stanton APRN.MARKING MACHINE OPERATOR [address] [place] [address] Referring Pain Management 05/18/23 Karen Mckee APRN.ADVERTISING SALES AGENT [address] [place], [place] 762981 Schedule Manager Internal Medicine 06/04/24 Sam Khan APRN.MARKING MACHINE OPERATOR [address] [place], [place] [id number] Schedule Manager Internal Medicine 06/04/24 Gymnastics Coach Or Instructor Relationship Specialty Start Date End Date Maile Norman MD [address] [place], [place] 843461 PCP - General Internal Medicine 02/24/12 Charles Stanton APRN.MARKING MACHINE OPERATOR [address] [place] [address] Referring Pain Management 05/18/23 Karen Mckee APRN.ADVERTISING SALES AGENT [address] [place], [place] 725921 Schedule Manager Internal Medicine 06/04/24 Sam Khan STAIN MAKER.MARKING MACHINE OPERATOR [address] [place], [place] 490241 Schedule Manager Internal Medicine 06/04/24 Gymnastics Coach Or Instructor Relationship Specialty Start Date End Date Maile Norman MD [address] [place], [place] 953051 PCP - General Internal Medicine 02/24/12 Charles Stanton APRN.MARKING MACHINE OPERATOR [address] [place] [address] Referring Pain Management 05/18/23 Karen Mckee APRN.ADVERTISING SALES AGENT [address] [place], [place] 934091 Schedule Manager Internal Medicine 06/04/24 Sam Khan APRN.MARKING MACHINE OPERATOR [address] [place], [place] 187591 Schedule Manager Internal Medicine 06/04/24 Gymnastics Coach Or Instructor Relationship Specialty Start Date End Date Maile Norman MD [address] [place], [place] 115351 PCP - General Internal Medicine 02/24/12 Charles Stanton APRN.MARKING MACHINE OPERATOR [address] [place] [address] Referring Pain Management 05/18/23 Karen Mckee APRN.ADVERTISING SALES AGENT [address] [place] [address] Schedule Manager Internal Medicine 06/04/24 Sam Khan STAIN MAKER.MARKING MACHINE OPERATOR [address] [place], [place] 398101 Schedule Manager Internal Medicine 06/04/24 Gymnastics Coach Or Instructor Relationship Specialty Start Date End Date Maile Norman MD [address] [place] [address] PCP - General Internal Medicine 02/24/12 Charles Stanton APRN.MARKING MACHINE OPERATOR [address] [place] [address] Referring Pain Management 05/18/23 Karen Mckee APRN.ADVERTISING SALES AGENT [address] [place], [place] 750091 Schedule Manager Internal Medicine 06/04/24 Sam Khan APRN.MARKING MACHINE OPERATOR [address] [place], [place] 322401 Schedule Manager Internal Medicine 06/04/24 Gymnastics Coach Or Instructor Relationship Specialty Start Date End Date Maile Norman MD [address] [place], [place] 366461 PCP - General Internal Medicine 02/24/12 Charles Stanton, STAIN MAKER.MARKING MACHINE OPERATOR [address] [place], [place] 145135 Referring Pain Management 05/18/23 Karen Mckee APRN.ADVERTISING SALES AGENT [address] [place], [place] 044911 Schedule Manager Internal Medicine 06/04/24 Sam Khan APRN.MARKING MACHINE OPERATOR [address] [place], [place] 269051 Schedule Manager Internal Medicine 06/04/24 Gymnastics Coach Or Instructor Relationship Specialty Start Date End Date Maile Norman MD [address] [place], [place] 870751 PCP - General Internal Medicine 02/24/12 Charles Stanton, STAIN MAKER.MARKING MACHINE OPERATOR [address] [place] [address] Referring Pain Management 05/18/23 Karen Mckee APRN.ADVERTISING SALES AGENT [address] [place] [address] Schedule Manager Internal Medicine 06/04/24 Sam Khan APRN.MARKING MACHINE OPERATOR [address] [place] [address] Schedule Manager Internal Medicine 06/04/24 Gymnastics Coach Or Instructor Relationship Specialty Start Date End Date Maile Norman MD [address] [place] [address] [id number] PCP - General Internal Medicine 02/24/12 Charles Stanton APRN.MARKING MACHINE OPERATOR [address] [place] [address] Referring Pain Management 05/18/23 Karen Mckee APRN.ADVERTISING SALES AGENT [facility] [place], [place] 449301 Schedule Manager Internal Medicine 06/04/24 Sam Khan APRN.MARKING MACHINE OPERATOR [address] [place] [address] [id number] Schedule Manager Internal Medicine 06/04/24 Gymnastics Coach Or Instructor Relationship Specialty Start Date End Date Maile Norman MD [facility]0 [place], [place] 386701 PCP - General Internal Medicine 02/24/12 Charles Stanton APRN.MARKING MACHINE OPERATOR [facility] [place] [place] [address] Referring Pain Management 05/18/23 Karen Mckee APRN.ADVERTISING SALES AGENT [address] [place] [address] Schedule Manager Internal Medicine 06/04/24 Sam Khan APRN.MARKING MACHINE OPERATOR [address] [place], [place] 425411 Schedule Manager Internal Medicine 06/04/24 Gymnastics Coach Or Instructor Relationship Specialty Start Date End Date Maile Norman MD [facility]0 [place], [place] 044951 PCP - General Internal Medicine 02/24/12 Charles Stanton APRN.MARKING MACHINE OPERATOR [address] [place] [address] Referring Pain Management 05/18/23 Karen Mckee STAIN MAKER.ADVERTISING SALES AGENT [facility]0 [place], [place] [address] [facility] Internal Medicine 06/04/24 Sam Khan STAIN MAKER.MARKING MACHINE OPERATOR [facility]0 [place], [place] 535731 Schedule Manager Internal Medicine 06/04/24 Gymnastics Coach Or Instructor Relationship Specialty Start Date End Date Maile Norman MD [address] [place], [place] 69699691 PCP - General Internal Medicine 02/24/12 Charles Stanton APRN.MARKING MACHINE OPERATOR [address] [place], [place] 750445 Referring Pain Management 05/18/23 Karen Mckee STAIN MAKER.ADVERTISING SALES AGENT [address] [place], [place] 593541 Schedule Manager Internal Medicine 06/04/24 Sam Khan STAIN MAKER.MARKING MACHINE OPERATOR [address] [place], [place] 656701 Schedule Manager Internal Medicine 06/04/24 Gymnastics Coach Or Instructor Relationship Specialty Start Date End Date Maile Norman MD [address] [place], [place] 956071 PCP - General Internal Medicine 02/24/12 Charles Stanton STAIN MAKER.MARKING MACHINE OPERATOR [address] [place], [place] 91057685 Referring Pain Management 05/18/23 Karen Mckee STAIN MAKER.ADVERTISING SALES AGENT [address] [place], [place] 879501 [facility] Internal Medicine 06/04/24 Sam Khan STAIN MAKER.MARKING MACHINE OPERATOR [address] [place], [place] 81601691 [facility] Internal Medicine 06/04/24 Gymnastics Coach Or Instructor Relationship Specialty Start Date End Date Maile Norman MD [address] [place], [place] 22415691 PCP - General Internal Medicine 02/24/12 Charles Stanton, STAIN MAKER.MARKING MACHINE OPERATOR [address] [place], [place] 539195 Referring Pain Management 05/18/23 Karen Mckee STAIN MAKER.ADVERTISING SALES AGENT [address] [place], [place] 368611 Schedule Manager Internal Medicine 06/04/24 Sam Khan STAIN MAKER.MARKING MACHINE OPERATOR [address] [place] [address] Schedule Manager Internal Medicine 06/04/24 Gymnastics Coach Or Instructor Relationship Specialty Start Date End Date Maile Norman MD [address] [place], [place] 577471 PCP - General Internal Medicine 02/24/12 Charles Stanton APRN.MARKING MACHINE OPERATOR [address] [place], [place] 58901685 Referring Pain Management 05/18/23 Karen Mckee STAIN MAKER.ADVERTISING SALES AGENT [address] [place], [place] 112101 [facility] Internal Medicine 06/04/24 Sam Khan STAIN MAKER.MARKING MACHINE OPERATOR [address] [place] [address] [facility] Internal Medicine 06/04/24 Gymnastics Coach Or Instructor Relationship Specialty Start Date End Date Maile Norman MD [address] [place], [place] 932561 PCP - General Internal Medicine 02/24/12 Charles Stanton APRN.MARKING MACHINE OPERATOR [address] [place] [address] Referring Pain Management 05/18/23 Karen Mckee APRN.ADVERTISING SALES AGENT [address] [place] [address] Schedule Manager Internal Medicine 06/04/24 Sam Khan APRN.MARKING MACHINE OPERATOR [address] [place] [address] Schedule Manager Internal Medicine 09/18/24 Gymnastics Coach Or Instructor Relationship Specialty Start Date End Date Maile Nomran MD [address] [place] [address] PCP - General Internal Medicine 02/24/12 Charles Stanton APRN.MARKING MACHINE OPERATOR [address] [place], [place] 405575 Referring Pain Management 05/18/23 Karen Mckee APRN.ADVERTISING SALES AGENT [address] [place] [address] Schedule Manager Internal Medicine 06/04/24 Sam Khan APRN.MARKING MACHINE OPERATOR [address] [place] [address] Schedule Manager Internal Medicine 09/18/24 Gymnastics Coach Or Instructor Relationship Specialty Start Date End Date Maile Norman MD [address] [place] [address] PCP - General Internal Medicine 02/24/12 Charles Stanton APRN.MARKING MACHINE OPERATOR [address] [place] [address] Referring Pain Management 05/18/23 Karen Mckee APRN.ADVERTISING SALES AGENT [address] [place] [address] Schedule Manager Internal Medicine 06/04/24 Sam Khan APRN.MARKING MACHINE OPERATOR [address] [place] [address] Schedule Manager Internal Medicine 09/18/24 Gymnastics Coach Or Instructor Relationship Specialty Start Date End Date Maile Norman MD [address] [place] [address] PCP - General Internal Medicine 02/24/12 Charles Stanton APRN.MARKING MACHINE OPERATOR [address] [place], [place] 474755 Referring Pain Management 05/18/23 Karen Mckee APRN.ADVERTISING SALES AGENT [address] [facility] [place] [address] Schedule Manager Internal Medicine 06/04/24 Sam Khan APRN.MARKING MACHINE OPERATOR [address] [facility] [address] Schedule Manager Internal Medicine 09/18/24 Gymnastics Coach Or Instructor Relationship Specialty Start Date End Date Maile Norman MD [address] [facility] [address] PCP - General Internal Medicine 02/24/12 Charles Stanton APRN.MARKING MACHINE OPERATOR [address] [place], [place] 581585 Referring Pain Management 05/18/23 Karen Mckee APRN.ADVERTISING SALES AGENT [address] [place] [address] Schedule Manager Internal Medicine 06/04/24 Sam Khan APRN.MARKING MACHINE OPERATOR [address] [place], [place] 961051 Schedule Manager Internal Medicine 09/18/24 Gymnastics Coach Or Instructor Relationship Specialty Start Date End Date Maile Norman MD [address] [place], [place] 372271 PCP - General Internal Medicine 02/24/12 Charles Stanton STAIN MAKER.MARKING MACHINE OPERATOR [address] [place], [place] 42698685 Referring Pain Management 05/18/23 Karen Mckee APRN.ADVERTISING SALES AGENT [address] [place] [address] Schedule Manager Internal Medicine 06/04/24 Sam Khan APRN.MARKING MACHINE OPERATOR [address] [place], [place] 895031 [facility] Internal Medicine 09/18/24 Gymnastics Coach Or Instructor Relationship Specialty Start Date End Date Maile Norman MD [address] [place], [place] 692911 PCP - General Internal Medicine 02/24/12 Charles Stanton STAIN MAKER.MARKING MACHINE OPERATOR [address] [place], [place] 284365 Referring Pain Management 05/18/23 Karen Mckee APRN.ADVERTISING SALES AGENT [address] [place], [place] 145721 Schedule Manager Internal Medicine 06/04/24 Sam Khan APRN.MARKING MACHINE OPERATOR [address] [place] [address] Schedule Manager Internal Medicine 09/18/24 Gymnastics Coach Or Instructor Relationship Specialty Start Date End Date Maile Norman MD [address] [place], [place] 196811 PCP - General Internal Medicine 02/24/12 Charles Stanton APRN.MARKING MACHINE OPERATOR [address] [place], [place] 05020685 Referring Pain Management 05/18/23 Karen Mckee APRN.ADVERTISING SALES AGENT [address] [place] [address] Schedule Manager Internal Medicine 06/04/24 Sam Khan APRN.MARKING MACHINE OPERATOR [address] [place], [place] 032621 Schedule Manager Internal Medicine 09/18/24 Gymnastics Coach Or Instructor Relationship Specialty Start Date End Date Maile Norman MD [address] [place], [place] 739971 PCP - General Internal Medicine 02/24/12 Charles Stanton STAIN MAKER.MARKING MACHINE OPERATOR [address] [place], [place] 011625 Referring Pain Management 05/18/23 Karen Mckee APRN.ADVERTISING SALES AGENT [address] [place] [address] Schedule Manager Internal Medicine 06/04/24 Sam Khan APRN.MARKING MACHINE OPERATOR [address] [place] [address] Schedule Manager Internal Medicine 09/18/24 Gymnastics Coach Or Instructor Relationship Specialty Start Date End Date Maile Norman MD [address] [place], [place] 249611 PCP - General Internal Medicine 02/24/12 Charles Stanton APRN.MARKING MACHINE OPERATOR [address] [place], [place] 919195 Referring Pain Management 05/18/23 Karen Mckee APRN.ADVERTISING SALES AGENT [address] [place] [address] Schedule Manager Internal Medicine 06/04/24 Sam Khan APRN.MARKING MACHINE OPERATOR [address] [place] [address] Schedule Manager Internal Medicine 09/18/24 Gymnastics Coach Or Instructor Relationship Specialty Start Date End Date Maile Norman MD [address] [place], [place] 484761 PCP - General Internal Medicine 02/24/12 Charles Stanton APRN.MARKING MACHINE OPERATOR [address] [place], [place] 499875 Referring Pain Management 05/18/23 Karen Mckee APRN.ADVERTISING SALES AGENT [address] [place] [address] Schedule Manager Internal Medicine 06/04/24 Sam Khan APRN.MARKING MACHINE OPERATOR [address] [place] [address] Schedule Manager Internal Medicine 09/18/24 Gymnastics Coach Or Instructor Relationship Specialty Start Date End Date Maile Norman MD [address] [place] [address] PCP - General Internal Medicine 02/24/12 Charles Stanton APRN.MARKING MACHINE OPERATOR [address] [place] [address] Referring Pain Management 05/18/23 Karen Mckee APRN.ADVERTISING SALES AGENT [address] [place] [address] Schedule Manager Internal Medicine 06/04/24 Sam Khan APRN.MARKING MACHINE OPERATOR [address] [place] [address] Schedule Manager Internal Medicine 09/18/24 Gymnastics Coach Or Instructor Relationship Specialty Start Date End Date Maile Norman MD [address] [place], [place] 228461 PCP - General Internal Medicine 02/24/12 Charles Stanton APRN.MARKING MACHINE OPERATOR [address] [place] [address] Referring Pain Management 05/18/23 Karen Mckee APRN.ADVERTISING SALES AGENT [address] [place] [address] Schedule Manager Internal Medicine 06/04/24 Sam Khan APRN.MARKING MACHINE OPERATOR [address] [place], [place] 313671 Schedule Manager Internal Medicine 09/18/24 Gymnastics Coach Or Instructor Relationship Specialty Start Date End Date Maile Norman MD [address] [place], [place] 241801 PCP - General Internal Medicine 02/24/12 Charles Stanton APRN.MARKING MACHINE OPERATOR [address] [place] [address] Referring Pain Management 05/18/23 Karen Mckee STAIN MAKER.ADVERTISING SALES AGENT [address] [place], [place] 417021 Schedule Manager Internal Medicine 06/04/24 Sam Khan STAIN MAKER.MARKING MACHINE OPERATOR [address] [place], [place] 662521 Schedule Manager Internal Medicine 09/18/24 Gymnastics Coach Or Instructor Relationship Specialty Start Date End Date Maile Norman MD [address] [place], [place] 607191 PCP - General Internal Medicine 02/24/12 Charles Stanton, STAIN MAKER.MARKING MACHINE OPERATOR [address] [place] [address] Referring Pain Management 05/18/23 Karen Mckee STAIN MAKER.ADVERTISING SALES AGENT [address] [place], [place] 580911 Schedule Manager Internal Medicine 06/04/24 Sam Khan STAIN MAKER.MARKING MACHINE OPERATOR [address] [place], [place] 236501 Schedule Manager Internal Medicine 09/18/24 Gymnastics Coach Or Instructor Relationship Specialty Start Date End Date Maile Norman MD [address] [place], [place] 688681 PCP - General Internal Medicine 02/24/12 Charles Stanton APRN.MARKING MACHINE OPERATOR [address] [place] [address] Referring Pain Management 05/18/23 Karen Mckee STAIN MAKER.ADVERTISING SALES AGENT [address] [place], [place] 050381 Schedule Manager Internal Medicine 06/04/24 Sam Khan APRN.MARKING MACHINE OPERATOR [address] [place] [address] Schedule Manager Internal Medicine 09/18/24 Gymnastics Coach Or Instructor Relationship Specialty Start Date End Date Maile Norman MD [address] [place], [place] 514951 PCP - General Internal Medicine 02/24/12 Charles Stanton STAIN MAKER.MARKING MACHINE OPERATOR [address] [place] [address] Referring Pain Management 05/18/23 Karen Mckee STAIN MAKER.ADVERTISING SALES AGENT [address] [place] [address] Schedule Manager Internal Medicine 06/04/24 Sam Khan STAIN MAKER.MARKING MACHINE OPERATOR [address] [place] [address] Schedule Manager Internal Medicine 09/18/24 Gymnastics Coach Or Instructor Relationship Specialty Start Date End Date Maile Norman MD [address] [place] [address] PCP - General Internal Medicine 02/24/12 Charles Stanton APRN.MARKING MACHINE OPERATOR [address] [place] [address] Referring Pain Management 05/18/23 Karen Mckee APRN.ADVERTISING SALES AGENT [address] [facility] [address] Schedule Manager Internal Medicine 06/04/24 Sam Khan APRN.MARKING MACHINE OPERATOR [address] [place] [address] Schedule Manager Internal Medicine 09/18/24 Gymnastics Coach Or Instructor Relationship Specialty Start Date End Date Maile Norman MD [address] [place] [address] PCP - General Internal Medicine 02/24/12 Charles Stanton APRN.MARKING MACHINE OPERATOR [address] [place] [address] Referring Pain Management 05/18/23 Sam Khan APRN.MARKING MACHINE OPERATOR [address] [facility] [address] Schedule Manager Internal Medicine 09/18/24 Karen Mckee APRN.ADVERTISING SALES AGENT [address] [place] [address] Schedule Manager Internal Medicine 11/14/24 Gymnastics Coach Or Instructor Relationship Specialty Start Date End Date Maile Norman MD [address] [place] [address] PCP - General Internal Medicine 02/24/12 Charles Stanton APRN.MARKING MACHINE OPERATOR [address] [place] [address] Referring Pain Management 05/18/23 Sam Khan APRN.MARKING MACHINE OPERATOR [address] [place] [address] Schedule Manager Internal Medicine 09/18/24 Karen Mckee APRN.ADVERTISING SALES AGENT [address] [place] [address] Schedule Manager Internal Medicine 11/14/24 Gymnastics Coach Or Instructor Relationship Specialty Start Date End Date Maile Norman MD [address] [place], [place] 435551 PCP - General Internal Medicine 02/24/12 Charles Stanton APRN.MARKING MACHINE OPERATOR [address] [place] [address] Referring Pain Management 05/18/23 Sam Khan STAIN MAKER.MARKING MACHINE OPERATOR [address] [place] [address] Schedule Manager Internal Medicine 09/18/24 Karen Mckee STAIN MAKER.ADVERTISING SALES AGENT [address] [place], [place] 901881 Schedule Manager Internal Medicine 11/14/24 Gymnastics Coach Or Instructor Relationship Specialty Start Date End Date Maile Norman MD [address] [place], [place] 147681 PCP - General Internal Medicine 02/24/12 Charles Stanton APRN.MARKING MACHINE OPERATOR [address] [place] [address] Referring Pain Management 05/18/23 Sam Khan APRN.MARKING MACHINE OPERATOR [address] [place], [place] 488741 Schedule Manager Internal Medicine 09/18/24 Karen Mckee APRN.ADVERTISING SALES AGENT [address] [place] [address] Schedule Manager Internal Medicine 11/14/24 Gymnastics Coach Or Instructor Relationship Specialty Start Date End Date Maile Norman MD [address] [place] [address] PCP - General Internal Medicine 02/24/12 Charles Stanton APRN.MARKING MACHINE OPERATOR [address] [place] [address] Referring Pain Management 05/18/23 Sam Khan APRN.MARKING MACHINE OPERATOR [address] [place] [address] Schedule Manager Internal Medicine 09/18/24 Karen Mckee STAIN MAKER.ADVERTISING SALES AGENT [address] [place], [place] 701001 Schedule Manager Internal Medicine 11/14/24 Gymnastics Coach Or Instructor Relationship Specialty Start Date End Date Maile Norman MD [address] [place], [place] 637061 PCP - General Internal Medicine 02/24/12 Charles Stanton APRN.MARKING MACHINE OPERATOR [address] [place] [address] Referring Pain Management 05/18/23 Sam Khan APRN.MARKING MACHINE OPERATOR [address] [place], [place] 222151 Schedule Manager Internal Medicine 09/18/24 Karen Mckee APRN.ADVERTISING SALES AGENT [address] [place], [place] 904091 Schedule Manager Internal Medicine 11/14/24 Gymnastics Coach Or Instructor Relationship Specialty Start Date End Date Maile Norman MD [address] [place] [address] PCP - General Internal Medicine 02/24/12 Charles Stanton APRN.MARKING MACHINE OPERATOR [address] [place] [address] Referring Pain Management 05/18/23 Sam Khan APRN.MARKING MACHINE OPERATOR [address] [place] [address] Schedule Manager Internal Medicine 09/18/24 Karen Mckee APRN.ADVERTISING SALES AGENT [address] [place], [place] 845161 Schedule Manager Internal Medicine 11/14/24 Gymnastics Coach Or Instructor Relationship Specialty Start Date End Date Maile Norman MD [address] [place] [address] PCP - General Internal Medicine 02/24/12 Charles Stanton APRN.MARKING MACHINE OPERATOR [address] [place] [address] Referring Pain Management 05/18/23 Sam Khan APRN.MARKING MACHINE OPERATOR [address] [place], [place] 942291 Schedule Manager Internal Medicine 09/18/24 Karen Mckee APRN.ADVERTISING SALES AGENT [address] [place], [place] 099211 [facility] Internal Medicine 11/14/24 Gymnastics Coach Or Instructor Relationship Specialty Start Date End Date Maile Norman MD [address] [place], [place] 165101 PCP - General Internal Medicine 02/24/12 Charles Stanton APRN.MARKING MACHINE OPERATOR [address] [place] [address] Referring Pain Management 05/18/23 Sam Khan APRN.MARKING MACHINE OPERATOR [address] [place], [place] 915511 Schedule Manager Internal Medicine 09/18/24 Karen Mckee APRN.ADVERTISING SALES AGENT [address] [place], [place] 626331 [facility] Internal Medicine 11/14/24 Source Comments (unrecognize d section and content) In the event this informatio n is protected by the Federal Confidentiality of Alcohol and Drug Abuse Patient Records regulations: The Federal rules restrict any use of the information to criminally investigate or prosecute any alcohol or drug abuse patient.[facility] System[facility] the event this information is protected by the Federal Confidentiality of Alcohol and Drug Abuse Patient Records regulations: The Federal rules restrict any use of the information to criminally investigate or prosecute any alcohol or drug abuse patient.[facility] SystemIn the event this information is protected by the Federal Confidentiality of Alcohol and Drug Abuse Patient Records regulations: The Federal rules restrict any use of the information to criminally investigate or prosecute any alcohol or drug abuse patient.[facility] SystemIn the event this information is protected by the Federal Confidentiality of Alcohol and Drug Abuse Patient Records regulations: The Federal rules restrict any use of the information to criminally investigate or prosecute any alcohol or drug abuse patient.[facility] SystemIn the event this information is protected by the Federal Confidentiality of Alcohol and Drug Abuse Patient Records regulations: The Federal rules restrict any use of the information to criminally investigate or prosecute any alcohol or drug abuse patient.[facility] SystemIn the event this information is protected by the Federal Confidentiality of Alcohol and Drug Abuse Patient Records regulations: The Federal rules restrict any use of the information to criminally investigate or prosecute any alcohol or drug abuse patient.[facility] SystemIn the event this information is protected by the Federal Confidentiality of Alcohol and Drug Abuse Patient Records regulations: The Federal rules restrict any use of the information to criminally investigate or prosecute any alcohol or drug abuse patient.[facility] SystemIn the event this information is protected by the Federal Confidentiality of Alcohol and Drug Abuse Patient Records regulations: The Federal rules restrict any use of the information to criminally investigate or prosecute any alcohol or drug abuse patient.[facility] SystemIn the event this information is protected by the Federal Confidentiality of Alcohol and Drug Abuse Patient Records regulations: The Federal rules restrict any use of the information to criminally investigate or prosecute any alcohol or drug abuse patient.[facility] SystemIn the event this information is protected by the Federal Confidentiality of Alcohol and Drug Abuse Patient Records regulations: The Federal rules restrict any use of the information to criminally investigate or prosecute any alcohol or drug abuse patient.[facility] SystemIn the event this information is protected by the Federal Confidentiality of Alcohol and Drug Abuse Patient Records regulations: The Federal rules restrict any use of the information to criminally investigate or prosecute any alcohol or drug abuse patient.[facility] SystemIn the event this information is protected by the Federal Confidentiality of Alcohol and Drug Abuse Patient Records regulations: The Federal rules restrict any use of the information to criminally investigate or prosecute any alcohol or drug abuse patient.[facility] SystemIn the event this information is protected by the Federal Confidentiality of Alcohol and Drug Abuse Patient Records regulations: The Federal rules restrict any use of the information to criminally investigate or prosecute any alcohol or drug abuse patient.[facility] SystemIn the event this information is protected by the Federal Confidentiality of Alcohol and Drug Abuse Patient Records regulations: The Federal rules restrict any use of the information to criminally investigate or prosecute any alcohol or drug abuse patient.[facility] SystemIn the event this information is protected by the Federal Confidentiality of Alcohol and Drug Abuse Patient Records regulations: The Federal rules restrict any use of the information to criminally investigate or prosecute any alcohol or drug abuse patient.[facility] SystemIn the event this information is protected by the Federal Confidentiality of Alcohol and Drug Abuse Patient Records regulations: The Federal rules restrict any use of the information to criminally investigate or prosecute any alcohol or drug abuse patient.[facility] SystemIn the event this information is protected by the Federal Confidentiality of Alcohol and Drug Abuse Patient Records regulations: The Federal rules restrict any use of the information to criminally investigate or prosecute any alcohol or drug abuse patient.[facility] SystemIn the event this information is protected by the Federal Confidentiality of Alcohol and Drug Abuse Patient Records regulations: The Federal rules restrict any use of the information to criminally investigate or prosecute any alcohol or drug abuse patient.[facility] SystemIn the event this information is protected by the Federal Confidentiality of Alcohol and Drug Abuse Patient Records regulations: The Federal rules restrict any use of the information to criminally investigate or prosecute any alcohol or drug abuse patient.[facility] SystemIn the event this information is protected by the Federal Confidentiality of Alcohol and Drug Abuse Patient Records regulations: The Federal rules restrict any use of the information to criminally investigate or prosecute any alcohol or drug abuse patient.[facility] SystemIn the event this information is protected by the Federal Confidentiality of Alcohol and Drug Abuse Patient Records regulations: The Federal rules restrict any use of the information to criminally investigate or prosecute any alcohol or drug abuse patient.[facility] SystemIn the event this information is protected by the Federal Confidentiality of Alcohol and Drug Abuse Patient Records regulations: The Federal rules restrict any use of the information to criminally investigate or prosecute any alcohol or drug abuse patient.[facility] SystemIn the event this information is protected by the Federal Confidentiality of Alcohol and Drug Abuse Patient Records regulations: The Federal rules restrict any use of the information to criminally investigate or prosecute any alcohol or drug abuse patient.[facility] SystemIn the event this information is protected by the Federal Confidentiality of Alcohol and Drug Abuse Patient Records regulations: The Federal rules restrict any use of the information to criminally investigate or prosecute any alcohol or drug abuse patient.[facility] SystemIn the event this information is protected by the Federal Confidentiality of Alcohol and Drug Abuse Patient Records regulations: The Federal rules restrict any use of the information to criminally investigate or prosecute any alcohol or drug abuse patient.[facility] SystemIn the event this information is protected by the Federal Confidentiality of Alcohol and Drug Abuse Patient Records regulations: The Federal rules restrict any use of the information to criminally investigate or prosecute any alcohol or drug abuse patient.[facility] SystemIn the event this information is protected by the Federal Confidentiality of Alcohol and Drug Abuse Patient Records regulations: The Federal rules restrict any use of the information to criminally investigate or prosecute any alcohol or drug abuse patient.[facility] SystemIn the event this information is protected by the Federal Confidentiality of Alcohol and Drug Abuse Patient Records regulations: The Federal rules restrict any use of the information to criminally investigate or prosecute any alcohol or drug abuse patient.[facility] SystemIn the event this information is protected by the Federal Confidentiality of Alcohol and Drug Abuse Patient Records regulations: The Federal rules restrict any use of the information to criminally investigate or prosecute any alcohol or drug abuse patient.[facility] SystemIn the event this information is protected by the Federal Confidentiality of Alcohol and Drug Abuse Patient Records regulations: The Federal rules restrict any use of the information to criminally investigate or prosecute any alcohol or drug abuse patient.[facility] SystemIn the event this information is protected by the Federal Confidentiality of Alcohol and Drug Abuse Patient Records regulations: The Federal rules restrict any use of the information to criminally investigate or prosecute any alcohol or drug abuse patient.[facility] SystemIn the event this information is protected by the Federal Confidentiality of Alcohol and Drug Abuse Patient Records regulations: The Federal rules restrict any use of the information to criminally investigate or prosecute any alcohol or drug abuse patient.[facility] SystemIn the event this information is protected by the Federal Confidentiality of Alcohol and Drug Abuse Patient Records regulations: The Federal rules restrict any use of the information to criminally investigate or prosecute any alcohol or drug abuse patient.[facility] SystemIn the event this information is protected by the Federal Confidentiality of Alcohol and Drug Abuse Patient Records regulations: The Federal rules restrict any use of the information to criminally investigate or prosecute any alcohol or drug abuse patient.[facility] SystemIn the event this information is protected by the Federal Confidentiality of Alcohol and Drug Abuse Patient Records regulations: The Federal rules restrict any use of the information to criminally investigate or prosecute any alcohol or drug abuse patient.[facility] SystemIn the event this information is protected by the Federal Confidentiality of Alcohol and Drug Abuse Patient Records regulations: The Federal rules restrict any use of the information to criminally investigate or prosecute any alcohol or drug abuse patient.[facility] the event this information is protected by the Federal Confidentiality of Alcohol and Drug Abuse Patient Records regulations: The Federal rules restrict any use of the information to criminally investigate or prosecute any alcohol or drug abuse patient.[facility] SystemIn the event this information is protected by the Federal Confidentiality of Alcohol and Drug Abuse Patient Records regulations: The Federal rules restrict any use of the information to criminally investigate or prosecute any alcohol or drug abuse patient.[facility] SystemIn the event this information is protected by the Federal Confidentiality of Alcohol and Drug Abuse Patient Records regulations: The Federal rules restrict any use of the information to criminally investigate or prosecute any alcohol or drug abuse patient.[facility] the event this information is protected by the Federal Confidentiality of Alcohol and Drug Abuse Patient Records regulations: The Federal rules restrict any use of the information to criminally investigate or prosecute any alcohol or drug abuse patient.[facility] SystemIn the event this information is protected by the Federal Confidentiality of Alcohol and Drug Abuse Patient Records regulations: The Federal rules restrict any use of the information to criminally investigate or prosecute any alcohol or drug abuse patient.[facility]In the event this information is protected by the Federal Confidentiality of Alcohol and Drug Abuse Patient Records regulations: The Federal rules restrict any use of the information to criminally investigate or prosecute any alcohol or drug abuse patient.[facility] SystemIn the event this information is protected by the Federal Confidentiality of Alcohol and Drug Abuse Patient Records regulations: The Federal rules restrict any use of the information to criminally investigate or prosecute any alcohol or drug abuse patient.[facility]In the event this information is protected by the Federal Confidentiality of Alcohol and Drug Abuse Patient Records regulations: The Federal rules restrict any use of the information to criminally investigate or prosecute any alcohol or drug abuse patient.[facility]In the event this information is protected by the Federal Confidentiality of Alcohol and Drug Abuse Patient Records regulations: The Federal rules restrict any use of the information to criminally investigate or prosecute any alcohol or drug abuse patient.[facility] SystemIn the event this information is protected by the Federal Confidentiality of Alcohol and Drug Abuse Patient Records regulations: The Federal rules restrict any use of the information to criminally investigate or prosecute any alcohol or drug abuse patient.[facility]In the event this information is protected by the Federal Confidentiality of Alcohol and Drug Abuse Patient Records regulations: The Federal rules restrict any use of the information to criminally investigate or prosecute any alcohol or drug abuse patient.[facility]In the event this information is protected by the Federal Confidentiality of Alcohol and Drug Abuse Patient Records regulations: The Federal rules restrict any use of the information to criminally investigate or prosecute any alcohol or drug abuse patient.[facility]In the event this information is protected by the Federal Confidentiality of Alcohol and Drug Abuse Patient Records regulations: The Federal rules restrict any use of the information to criminally investigate or prosecute any alcohol or drug abuse patient.[facility]In the event this information is protected by the Federal Confidentiality of Alcohol and Drug Abuse Patient Records regulations: The Federal rules restrict any use of the information to criminally investigate or prosecute any alcohol or drug abuse patient.[facility]In the event this information is protected by the Federal Confidentiality of Alcohol and Drug Abuse Patient Records regulations: The Federal rules restrict any use of the information to criminally investigate or prosecute any alcohol or drug abuse patient.[facility]In the event this information is protected by the Federal Confidentiality of Alcohol and Drug Abuse Patient Records regulations: The Federal rules restrict any use of the information to criminally investigate or prosecute any alcohol or drug abuse patient.[facility]In the event this information is protected by the Federal Confidentiality of Alcohol and Drug Abuse Patient Records regulations: The Federal rules restrict any use of the information to criminally investigate or prosecute any alcohol or drug abuse patient.[facility]In the event this information is protected by the Federal Confidentiality of Alcohol and Drug Abuse Patient Records regulations: The Federal rules restrict any use of the information to criminally investigate or prosecute any alcohol or drug abuse patient.[facility]In the event this information is protected by the Federal Confidentiality of Alcohol and Drug Abuse Patient Records regulations: The Federal rules restrict any use of the information to criminally investigate or prosecute any alcohol or drug abuse patient.[facility]In the event this information is protected by the Federal Confidentiality of Alcohol and Drug Abuse Patient Records regulations: The Federal rules restrict any use of the information to criminally investigate or prosecute any alcohol or drug abuse patient.[facility] SystemIn the event this information is protected by the Federal Confidentiality of Alcohol and Drug Abuse Patient Records regulations: The Federal rules restrict any use of the information to criminally investigate or prosecute any alcohol or drug abuse patient.[facility] SystemIn the event this information is protected by the Federal Confidentiality of Alcohol and Drug Abuse Patient Records regulations: The Federal rules restrict any use of the information to criminally investigate or prosecute any alcohol or drug abuse patient.[facility]In the event this information is protected by the Federal Confidentiality of Alcohol and Drug Abuse Patient Records regulations: The Federal rules restrict any use of the information to criminally investigate or prosecute any alcohol or drug abuse patient.[facility] SystemIn the event this information is protected by the Federal Confidentiality of Alcohol and Drug Abuse Patient Records regulations: The Federal rules restrict any use of the information to criminally investigate or prosecute any alcohol or drug abuse patient.[facility] SystemIn the event this information is protected by the Federal Confidentiality of Alcohol and Drug Abuse Patient Records regulations: The Federal rules restrict any use of the information to criminally investigate or prosecute any alcohol or drug abuse patient.[facility] SystemIn the event this information is protected by the Federal Confidentiality of Alcohol and Drug Abuse Patient Records regulations: The Federal rules restrict any use of the information to criminally investigate or prosecute any alcohol or drug abuse patient.[facility]In the event this information is protected by the Federal Confidentiality of Alcohol and Drug Abuse Patient Records regulations: The Federal rules restrict any use of the information to criminally investigate or prosecute any alcohol or drug abuse patient.[facility] SystemIn the event this information is protected by the Federal Confidentiality of Alcohol and Drug Abuse Patient Records regulations: The Federal rules restrict any use of the information to criminally investigate or prosecute any alcohol or drug abuse patient.[facility]In the event this information is protected by the Federal Confidentiality of Alcohol and Drug Abuse Patient Records regulations: The Federal rules restrict any use of the information to criminally investigate or prosecute any alcohol or drug abuse patient.[facility] SystemIn the event this information is protected by the Federal Confidentiality of Alcohol and Drug Abuse Patient Records regulations: The Federal rules restrict any use of the information to criminally investigate or prosecute any alcohol or drug abuse patient.[facility]In the event this information is protected by the Federal Confidentiality of Alcohol and Drug Abuse Patient Records regulations: The Federal rules restrict any use of the information to criminally investigate or prosecute any alcohol or drug abuse patient.[facility] SystemIn the event this information is protected by the Federal Confidentiality of Alcohol and Drug Abuse Patient Records regulations: The Federal rules restrict any use of the information to criminally investigate or prosecute any alcohol or drug abuse patient.[facility] SystemIn the event this information is protected by the Federal Confidentiality of Alcohol and Drug Abuse Patient Records regulations: The Federal rules restrict any use of the information to criminally investigate or prosecute any alcohol or drug abuse patient.[facility]In the event this information is protected by the Federal Confidentiality of Alcohol and Drug Abuse Patient Records regulations: The Federal rules restrict any use of the information to criminally investigate or prosecute any alcohol or drug abuse patient.[facility]In the event this information is protected by the Federal Confidentiality of Alcohol and Drug Abuse Patient Records regulations: The Federal rules restrict any use of the information to criminally investigate or prosecute any alcohol or drug abuse patient.[facility]In the event this information is protected by the Federal Confidentiality of Alcohol and Drug Abuse Patient Records regulations: The Federal rules restrict any use of the information to criminally investigate or prosecute any alcohol or drug abuse patient.[facility]In the event this information is protected by the Federal Confidentiality of Alcohol and Drug Abuse Patient Records regulations: The Federal rules restrict any use of the information to criminally investigate or prosecute any alcohol or drug abuse patient.[facility]In the event this information is protected by the Federal Confidentiality of Alcohol and Drug Abuse Patient Records regulations: The Federal rules restrict any use of the information to criminally investigate or prosecute any alcohol or drug abuse patient.[facility] SystemIn the event this information is protected by the Federal Confidentiality of Alcohol and Drug Abuse Patient Records regulations: The Federal rules restrict any use of the information to criminally investigate or prosecute any alcohol or drug abuse patient.[facility]In the event this information is protected by the Federal Confidentiality of Alcohol and Drug Abuse Patient Records regulations: The Federal rules restrict any use of the information to criminally investigate or prosecute any alcohol or drug abuse patient.[facility]In the event this information is protected by the Federal Confidentiality of Alcohol and Drug Abuse Patient Records regulations: The Federal rules restrict any use of the information to criminally investigate or prosecute any alcohol or drug abuse patient.[facility]In the event this information is protected by the Federal Confidentiality of Alcohol and Drug Abuse Patient Records regulations: The Federal rules restrict any use of the information to criminally investigate or prosecute any alcohol or drug abuse patient.[facility]In the event this information is protected by the Federal Confidentiality of Alcohol and Drug Abuse Patient Records regulations: The Federal rules restrict any use of the information to criminally investigate or prosecute any alcohol or drug abuse patient.[facility] SystemIn the event this information is protected by the Federal Confidentiality of Alcohol and Drug Abuse Patient Records regulations: The Federal rules restrict any use of the information to criminally investigate or prosecute any alcohol or drug abuse patient.[facility]In the event this information is protected by the Federal Confidentiality of Alcohol and Drug Abuse Patient Records regulations: The Federal rules restrict any use of the information to criminally investigate or prosecute any alcohol or drug abuse patient.[facility]In the event this information is protected by the Federal Confidentiality of Alcohol and Drug Abuse Patient Records regulations: The Federal rules restrict any use of the information to criminally investigate or prosecute any alcohol or drug abuse patient.[facility]In the event this information is protected by the Federal Confidentiality of Alcohol and Drug Abuse Patient Records regulations: The Federal rules restrict any use of the information to criminally investigate or prosecute any alcohol or drug abuse patient.[facility]In the event this information is protected by the Federal Confidentiality of Alcohol and Drug Abuse Patient Records regulations: The Federal rules restrict any use of the information to criminally investigate or prosecute any alcohol or drug abuse patient.[facility]In the event this information is protected by the Federal Confidentiality of Alcohol and Drug Abuse Patient Records regulations: The Federal rules restrict any use of the information to criminally investigate or prosecute any alcohol or drug abuse patient.[facility] SystemIn the event this information is protected by the Federal Confidentiality of Alcohol and Drug Abuse Patient Records regulations: The Federal rules restrict any use of the information to criminally investigate or prosecute any alcohol or drug abuse patient.[facility] the event this information is protected by the Federal Confidentiality of Alcohol and Drug Abuse Patient Records regulations: The Federal rules restrict any use of the information to criminally investigate or prosecute any alcohol or drug abuse patient.[facility]In the event this information is protected by the Federal Confidentiality of Alcohol and Drug Abuse Patient Records regulations: The Federal rules restrict any use of the information to criminally investigate or prosecute any alcohol or drug abuse patient.[facility] SystemIn the event this information is protected by the Federal Confidentiality of Alcohol and Drug Abuse Patient Records regulations: The Federal rules restrict any use of the information to criminally investigate or prosecute any alcohol or drug abuse patient.[facility] the event this information is protected by the Federal Confidentiality of Alcohol and Drug Abuse Patient Records regulations: The Federal rules restrict any use of the information to criminally investigate or prosecute any alcohol or drug abuse patient.[facility]In the event this information is protected by the Federal Confidentiality of Alcohol and Drug Abuse Patient Records regulations: The Federal rules restrict any use of the information to criminally investigate or prosecute any alcohol or drug abuse patient.[facility]In the event this information is protected by the Federal Confidentiality of Alcohol and Drug Abuse Patient Records regulations: The Federal rules restrict any use of the information to criminally investigate or prosecute any alcohol or drug abuse patient.[facility]In the event this information is protected by the Federal Confidentiality of Alcohol and Drug Abuse Patient Records regulations: The Federal rules restrict any use of the information to criminally investigate or prosecute any alcohol or drug abuse patient.[facility]In the event this information is protected by the Federal Confidentiality of Alcohol and Drug Abuse Patient Records regulations: The Federal rules restrict any use of the information to criminally investigate or prosecute any alcohol or drug abuse patient.[facility]In the event this information is protected by the Federal Confidentiality of Alcohol and Drug Abuse Patient Records regulations: The Federal rules restrict any use of the information to criminally investigate or prosecute any alcohol or drug abuse patient.[facility]In the event this information is protected by the Federal Confidentiality of Alcohol and Drug Abuse Patient Records regulations: The Federal rules restrict any use of the information to criminally investigate or prosecute any alcohol or drug abuse patient.[facility]In the event this information is protected by the Federal Confidentiality of Alcohol and Drug Abuse Patient Records regulations: The Federal rules restrict any use of the information to criminally investigate or prosecute any alcohol or drug abuse patient.[facility] SystemIn the event this information is protected by the Federal Confidentiality of Alcohol and Drug Abuse Patient Records regulations: The Federal rules restrict any use of the information to criminally investigate or prosecute any alcohol or drug abuse patient.[facility] SystemIn the event this information is protected by the Federal Confidentiality of Alcohol and Drug Abuse Patient Records regulations: The Federal rules restrict any use of the information to criminally investigate or prosecute any alcohol or drug abuse patient.[facility] SystemIn the event this information is protected by the Federal Confidentiality of Alcohol and Drug Abuse Patient Records regulations: The Federal rules restrict any use of the information to criminally investigate or prosecute any alcohol or drug abuse patient.[facility] SystemIn the event this information is protected by the Federal Confidentiality of Alcohol and Drug Abuse Patient Records regulations: The Federal rules restrict any use of the information to criminally investigate or prosecute any alcohol or drug abuse patient.[facility] SystemIn the event this information is protected by the Federal Confidentiality of Alcohol and Drug Abuse Patient Records regulations: The Federal rules restrict any use of the information to criminally investigate or prosecute any alcohol or drug abuse patient.[facility] SystemIn the event this information is protected by the Federal Confidentiality of Alcohol and Drug Abuse Patient Records regulations: The Federal rules restrict any use of the information to criminally investigate or prosecute any alcohol or drug abuse patient.[facility] SystemIn the event this information is protected by the Federal Confidentiality of Alcohol and Drug Abuse Patient Records regulations: The Federal rules restrict any use of the information to criminally investigate or prosecute any alcohol or drug abuse patient.[facility] SystemIn the event this information is protected by the Federal Confidentiality of Alcohol and Drug Abuse Patient Records regulations: The Federal rules restrict any use of the information to criminally investigate or prosecute any alcohol or drug abuse patient.[facility] SystemIn the event this information is protected by the Federal Confidentiality of Alcohol and Drug Abuse Patient Records regulations: The Federal rules restrict any use of the information to criminally investigate or prosecute any alcohol or drug abuse patient.[facility] SystemIn the event this information is protected by the Federal Confidentiality of Alcohol and Drug Abuse Patient Records regulations: The Federal rules restrict any use of the information to criminally investigate or prosecute any alcohol or drug abuse patient.[facility] SystemIn the event this information is protected by the Federal Confidentiality of Alcohol and Drug Abuse Patient Records regulations: The Federal rules restrict any use of the information to criminally investigate or prosecute any alcohol or drug abuse patient.[facility] SystemIn the event this information is protected by the Federal Confidentiality of Alcohol and Drug Abuse Patient Records regulations: The Federal rules restrict any use of the information to criminally investigate or prosecute any alcohol or drug abuse patient.[facility] SystemIn the event this information is protected by the Federal Confidentiality of Alcohol and Drug Abuse Patient Records regulations: The Federal rules restrict any use of the information to criminally investigate or prosecute any alcohol or drug abuse patient.[facility] SystemIn the event this information is protected by the Federal Confidentiality of Alcohol and Drug Abuse Patient Records regulations: The Federal rules restrict any use of the information to criminally investigate or prosecute any alcohol or drug abuse patient.[facility] SystemIn the event this information is protected by the Federal Confidentiality of Alcohol and Drug Abuse Patient Records regulations: The Federal rules restrict any use of the information to criminally investigate or prosecute any alcohol or drug abuse patient.[facility] SystemIn the event this information is protected by the Federal Confidentiality of Alcohol and Drug Abuse Patient Records regulations: The Federal rules restrict any use of the information to criminally investigate or prosecute any alcohol or drug abuse patient.[facility] SystemIn the event this information is protected by the Federal Confidentiality of Alcohol and Drug Abuse Patient Records regulations: The Federal rules restrict any use of the information to criminally investigate or prosecute any alcohol or drug abuse patient.[facility] SystemIn the event this information is protected by the Federal Confidentiality of Alcohol and Drug Abuse Patient Records regulations: The Federal rules restrict any use of the information to criminally investigate or prosecute any alcohol or drug abuse patient.[facility] SystemIn the event this information is protected by the Federal Confidentiality of Alcohol and Drug Abuse Patient Records regulations: The Federal rules restrict any use of the information to criminally investigate or prosecute any alcohol or drug abuse patient.[facility] SystemIn the event this information is protected by the Federal Confidentiality of Alcohol and Drug Abuse Patient Records regulations: The Federal rules restrict any use of the information to criminally investigate or prosecute any alcohol or drug abuse patient.[facility] SystemIn the event this information is protected by the Federal Confidentiality of Alcohol and Drug Abuse Patient Records regulations: The Federal rules restrict any use of the information to criminally investigate or prosecute any alcohol or drug abuse patient.[facility] SystemIn the event this information is protected by the Federal Confidentiality of Alcohol and Drug Abuse Patient Records regulations: The Federal rules restrict any use of the information to criminally investigate or prosecute any alcohol or drug abuse patient.[facility] SystemIn the event this information is protected by the Federal Confidentiality of Alcohol and Drug Abuse Patient Records regulations: The Federal rules restrict any use of the information to criminally investigate or prosecute any alcohol or drug abuse patient.[facility] SystemIn the event this information is protected by the Federal Confidentiality of Alcohol and Drug Abuse Patient Records regulations: The Federal rules restrict any use of the information to criminally investigate or prosecute any alcohol or drug abuse patient.[facility] SystemIn the event this information is protected by the Federal Confidentiality of Alcohol and Drug Abuse Patient Records regulations: The Federal rules restrict any use of the information to criminally investigate or prosecute any alcohol or drug abuse patient.[facility] SystemIn the event this information is protected by the Federal Confidentiality of Alcohol and Drug Abuse Patient Records regulations: The Federal rules restrict any use of the information to criminally investigate or prosecute any alcohol or drug abuse patient.[facility] SystemIn the event this information is protected by the Federal Confidentiality of Alcohol and Drug Abuse Patient Records regulations: The Federal rules restrict any use of the information to criminally investigate or prosecute any alcohol or drug abuse patient.[facility] SystemIn the event this information is protected by the Federal Confidentiality of Alcohol and Drug Abuse Patient Records regulations: The Federal rules restrict any use of the information to criminally investigate or prosecute any alcohol or drug abuse patient.[facility] SystemIn the event this information is protected by the Federal Confidentiality of Alcohol and Drug Abuse Patient Records regulations: The Federal rules restrict any use of the information to criminally investigate or prosecute any alcohol or drug abuse patient.[facility] SystemIn the event this information is protected by the Federal Confidentiality of Alcohol and Drug Abuse Patient Records regulations: The Federal rules restrict any use of the information to criminally investigate or prosecute any alcohol or drug abuse patient.[facility] SystemIn the event this information is protected by the Federal Confidentiality of Alcohol and Drug Abuse Patient Records regulations: The Federal rules restrict any use of the information to criminally investigate or prosecute any alcohol or drug abuse patient.[facility] SystemIn the event this information is protected by the Federal Confidentiality of Alcohol and Drug Abuse Patient Records regulations: The Federal rules restrict any use of the information to criminally investigate or prosecute any alcohol or drug abuse patient.[facility] SystemIn the event this information is protected by the Federal Confidentiality of Alcohol and Drug Abuse Patient Records regulations: The Federal rules restrict any use of the information to criminally investigate or prosecute any alcohol or drug abuse patient.[facility] SystemIn the event this information is protected by the Federal Confidentiality of Alcohol and Drug Abuse Patient Records regulations: The Federal rules restrict any use of the information to criminally investigate or prosecute any alcohol or drug abuse patient.[facility] SystemIn the event this information is protected by the Federal Confidentiality of Alcohol and Drug Abuse Patient Records regulations: The Federal rules restrict any use of the information to criminally investigate or prosecute any alcohol or drug abuse patient.[facility] SystemIn the event this information is protected by the Federal Confidentiality of Alcohol and Drug Abuse Patient Records regulations: The Federal rules restrict any use of the information to criminally investigate or prosecute any alcohol or drug abuse patient.[facility] SystemIn the event this information is protected by the Federal Confidentiality of Alcohol and Drug Abuse Patient Records regulations: The Federal rules restrict any use of the information to criminally investigate or prosecute any alcohol or drug abuse patient.[facility] SystemIn the event this information is protected by the Federal Confidentiality of Alcohol and Drug Abuse Patient Records regulations: The Federal rules restrict any use of the information to criminally investigate or prosecute any alcohol or drug abuse patient.[facility] SystemIn the event this information is protected by the Federal Confidentiality of Alcohol and Drug Abuse Patient Records regulations: The Federal rules restrict any use of the information to criminally investigate or prosecute any alcohol or drug abuse patient.[facility] the event this information is protected by the Federal Confidentiality of Alcohol and Drug Abuse Patient Records regulations: The Federal rules restrict any use of the information to criminally investigate or prosecute any alcohol or drug abuse patient.[facility] SystemIn the event this information is protected by the Federal Confidentiality of Alcohol and Drug Abuse Patient Records regulations: The Federal rules restrict any use of the information to criminally investigate or prosecute any alcohol or drug abuse patient.[facility] SystemIn the event this information is protected by the Federal Confidentiality of Alcohol and Drug Abuse Patient Records regulations: The Federal rules restrict any use of the information to criminally investigate or prosecute any alcohol or drug abuse patient.[facility] the event this information is protected by the Federal Confidentiality of Alcohol and Drug Abuse Patient Records regulations: The Federal rules restrict any use of the information to criminally investigate or prosecute any alcohol or drug abuse patient.[facility]In the event this information is protected by the Federal Confidentiality of Alcohol and Drug Abuse Patient Records regulations: The Federal rules restrict any use of the information to criminally investigate or prosecute any alcohol or drug abuse patient.[facility]In the event this information is protected by the Federal Confidentiality of Alcohol and Drug Abuse Patient Records regulations: The Federal rules restrict any use of the information to criminally investigate or prosecute any alcohol or drug abuse patient.[facility]In the event this information is protected by the Federal Confidentiality of Alcohol and Drug Abuse Patient Records regulations: The Federal rules restrict any use of the information to criminally investigate or prosecute any alcohol or drug abuse patient.[facility]In the event this information is protected by the Federal Confidentiality of Alcohol and Drug Abuse Patient Records regulations: The Federal rules restrict any use of the information to criminally investigate or prosecute any alcohol or drug abuse patient.[facility]In the event this information is protected by the Federal Confidentiality of Alcohol and Drug Abuse Patient Records regulations: The Federal rules restrict any use of the information to criminally investigate or prosecute any alcohol or drug abuse patient.[facility]In the event this information is protected by the Federal Confidentiality of Alcohol and Drug Abuse Patient Records regulations: The Federal rules restrict any use of the information to criminally investigate or prosecute any alcohol or drug abuse patient.[facility]In the event this information is protected by the Federal Confidentiality of Alcohol and Drug Abuse Patient Records regulations: The Federal rules restrict any use of the information to criminally investigate or prosecute any alcohol or drug abuse patient.[facility]In the event this information is protected by the Federal Confidentiality of Alcohol and Drug Abuse Patient Records regulations: The Federal rules restrict any use of the information to criminally investigate or prosecute any alcohol or drug abuse patient.[facility]In the event this information is protected by the Federal Confidentiality of Alcohol and Drug Abuse Patient Records regulations: The Federal rules restrict any use of the information to criminally investigate or prosecute any alcohol or drug abuse patient.[facility]In the event this information is protected by the Federal Confidentiality of Alcohol and Drug Abuse Patient Records regulations: The Federal rules restrict any use of the information to criminally investigate or prosecute any alcohol or drug abuse patient.[facility]In the event this information is protected by the Federal Confidentiality of Alcohol and Drug Abuse Patient Records regulations: The Federal rules restrict any use of the information to criminally investigate or prosecute any alcohol or drug abuse patient.[facility]In the event this information is protected by the Federal Confidentiality of Alcohol and Drug Abuse Patient Records regulations: The Federal rules restrict any use of the information to criminally investigate or prosecute any alcohol or drug abuse patient.[facility]In the event this information is protected by the Federal Confidentiality of Alcohol and Drug Abuse Patient Records regulations: The Federal rules restrict any use of the information to criminally investigate or prosecute any alcohol or drug abuse patient.[facility]In the event this information is protected by the Federal Confidentiality of Alcohol and Drug Abuse Patient Records regulations: The Federal rules restrict any use of the information to criminally investigate or prosecute any alcohol or drug abuse patient.[facility]In the event this information is protected by the Federal Confidentiality of Alcohol and Drug Abuse Patient Records regulations: The Federal rules restrict any use of the information to criminally investigate or prosecute any alcohol or drug abuse patient.[facility]In the event this information is protected by the Federal Confidentiality of Alcohol and Drug Abuse Patient Records regulations: The Federal rules restrict any use of the information to criminally investigate or prosecute any alcohol or drug abuse patient.[facility]In the event this information is protected by the Federal Confidentiality of Alcohol and Drug Abuse Patient Records regulations: The Federal rules restrict any use of the information to criminally investigate or prosecute any alcohol or drug abuse patient.[facility]In the event this information is protected by the Federal Confidentiality of Alcohol and Drug Abuse Patient Records regulations: The Federal rules restrict any use of the information to criminally investigate or prosecute any alcohol or drug abuse patient.[facility]In the event this information is protected by the Federal Confidentiality of Alcohol and Drug Abuse Patient Records regulations: The Federal rules restrict any use of the information to criminally investigate or prosecute any alcohol or drug abuse patient.[facility]In the event this information is protected by the Federal Confidentiality of Alcohol and Drug Abuse Patient Records regulations: The Federal rules restrict any use of the information to criminally investigate or prosecute any alcohol or drug abuse patient.[facility]In the event this information is protected by the Federal Confidentiality of Alcohol and Drug Abuse Patient Records regulations: The Federal rules restrict any use of the information to criminally investigate or prosecute any alcohol or drug abuse patient.[facility]In the event this information is protected by the Federal Confidentiality of Alcohol and Drug Abuse Patient Records regulations: The Federal rules restrict any use of the information to criminally investigate or prosecute any alcohol or drug abuse patient.[facility]In the event this information is protected by the Federal Confidentiality of Alcohol and Drug Abuse Patient Records regulations: The Federal rules restrict any use of the information to criminally investigate or prosecute any alcohol or drug abuse patient.[facility]In the event this information is protected by the Federal Confidentiality of Alcohol and Drug Abuse Patient Records regulations: The Federal rules restrict any use of the information to criminally investigate or prosecute any alcohol or drug abuse patient.[facility]In the event this information is protected by the Federal Confidentiality of Alcohol and Drug Abuse Patient Records regulations: The Federal rules restrict any use of the information to criminally investigate or prosecute any alcohol or drug abuse patient.[facility]In the event this information is protected by the Federal Confidentiality of Alcohol and Drug Abuse Patient Records regulations: The Federal rules restrict any use of the information to criminally investigate or prosecute any alcohol or drug abuse patient.[facility]In the event this information is protected by the Federal Confidentiality of Alcohol and Drug Abuse Patient Records regulations: The Federal rules restrict any use of the information to criminally investigate or prosecute any alcohol or drug abuse patient.[facility]In the event this information is protected by the Federal Confidentiality of Alcohol and Drug Abuse Patient Records regulations: The Federal rules restrict any use of the information to criminally investigate or prosecute any alcohol or drug abuse patient.[facility]In the event this information is protected by the Federal Confidentiality of Alcohol and Drug Abuse Patient Records regulations: The Federal rules restrict any use of the information to criminally investigate or prosecute any alcohol or drug abuse patient.[facility]In the event this information is protected by the Federal Confidentiality of Alcohol and Drug Abuse Patient Records regulations: The Federal rules restrict any use of the information to criminally investigate or prosecute any alcohol or drug abuse patient.[facility]In the event this information is protected by the Federal Confidentiality of Alcohol and Drug Abuse Patient Records regulations: The Federal rules restrict any use of the information to criminally investigate or prosecute any alcohol or drug abuse patient.[facility]In the event this information is protected by the Federal Confidentiality of Alcohol and Drug Abuse Patient Records regulations: The Federal rules restrict any use of the information to criminally investigate or prosecute any alcohol or drug abuse patient.[facility]In the event this information is protected by the Federal Confidentiality of Alcohol and Drug Abuse Patient Records regulations: The Federal rules restrict any use of the information to criminally investigate or prosecute any alcohol or drug abuse patient.[facility]In the event this information is protected by the Federal Confidentiality of Alcohol and Drug Abuse Patient Records regulations: The Federal rules restrict any use of the information to criminally investigate or prosecute any alcohol or drug abuse patient.[facility]In the event this information is protected by the Federal Confidentiality of Alcohol and Drug Abuse Patient Records regulations: The Federal rules restrict any use of the information to criminally investigate or prosecute any alcohol or drug abuse patient.[facility]In the event this information is protected by the Federal Confidentiality of Alcohol and Drug Abuse Patient Records regulations: The Federal rules restrict any use of the information to criminally investigate or prosecute any alcohol or drug abuse patient.[facility]In the event this information is protected by the Federal Confidentiality of Alcohol and Drug Abuse Patient Records regulations: The Federal rules restrict any use of the information to criminally investigate or prosecute any alcohol or drug abuse patient.[facility]In the event this information is protected by the Federal Confidentiality of Alcohol and Drug Abuse Patient Records regulations: The Federal rules restrict any use of the information to criminally investigate or prosecute any alcohol or drug abuse patient.[facility]In the event this information is protected by the Federal Confidentiality of Alcohol and Drug Abuse Patient Records regulations: The Federal rules restrict any use of the information to criminally investigate or prosecute any alcohol or drug abuse patient.[facility]In the event this information is protected by the Federal Confidentiality of Alcohol and Drug Abuse Patient Records regulations: The Federal rules restrict any use of the information to criminally investigate or prosecute any alcohol or drug abuse patient.[facility]In the event this information is protected by the Federal Confidentiality of Alcohol and Drug Abuse Patient Records regulations: The Federal rules restrict any use of the information to criminally investigate or prosecute any alcohol or drug abuse patient.[facility]In the event this information is protected by the Federal Confidentiality of Alcohol and Drug Abuse Patient Records regulations: The Federal rules restrict any use of the information to criminally investigate or prosecute any alcohol or drug abuse patient.[facility] SystemIn the event this information is protected by the Federal Confidentiality of Alcohol and Drug Abuse Patient Records regulations: The Federal rules restrict any use of the information to criminally investigate or prosecute any alcohol or drug abuse patient.[facility] SystemIn the event this information is protected by the Federal Confidentiality of Alcohol and Drug Abuse Patient Records regulations: The Federal rules restrict any use of the information to criminally investigate or prosecute any alcohol or drug abuse patient.[facility] SystemIn the event this information is protected by the Federal Confidentiality of Alcohol and Drug Abuse Patient Records regulations: The Federal rules restrict any use of the information to criminally investigate or prosecute any alcohol or drug abuse patient.[facility] SystemIn the event this information is protected by the Federal Confidentiality of Alcohol and Drug Abuse Patient Records regulations: The Federal rules restrict any use of the information to criminally investigate or prosecute any alcohol or drug abuse patient.[facility] the event this information is protected by the Federal Confidentiality of Alcohol and Drug Abuse Patient Records regulations: The Federal rules restrict any use of the information to criminally investigate or prosecute any alcohol or drug abuse patient.[facility] SystemIn the event this information is protected by the Federal Confidentiality of Alcohol and Drug Abuse Patient Records regulations: The Federal rules restrict any use of the information to criminally investigate or prosecute any alcohol or drug abuse patient.[facility] SystemIn the event this information is protected by the Federal Confidentiality of Alcohol and Drug Abuse Patient Records regulations: The Federal rules restrict any use of the information to criminally investigate or prosecute any alcohol or drug abuse patient.[facility] the event this information is protected by the Federal Confidentiality of Alcohol and Drug Abuse Patient Records regulations: The Federal rules restrict any use of the information to criminally investigate or prosecute any alcohol or drug abuse patient.[facility] SystemIn the event this information is protected by the Federal Confidentiality of Alcohol and Drug Abuse Patient Records regulations: The Federal rules restrict any use of the information to criminally investigate or prosecute any alcohol or drug abuse patient.[facility] FOR RECORDS PERTAINING TO PATIENTS WHO ARE [...] BE BASED ON THE PRIMARY CLINICAL RECORDS. [facility]. provides no warranty or guarantee of the accuracy or completeness of information in this document.
[2024-12-16 13:45] LABS: Mucous, Urine 0 SEEN /hpf (<or=2+); Red Blood Cells-Urine 0 SEEN /hpf (0-5); White Blood Cells 0 SEEN /hpf (0-5)
[2024-12-16 13:46] LABS: Color, Urine Yellow (Yellow); Glucose, Dipstick Normal (Normal); Ketone-Dipstick 5 mg/dl (Negative); Leukocyte Esterase-Dipstick 25 /ul (Negative); Nitrite-Dipstick Negative (Negative); Occult Blood-Urine Negative /ul (Negative); Protein-Dipstick 30 mg/dl (Negative); Urine Bilirubin Dipstick Negative (Negative); Urine Clarity Sl. Cloudy (Clear); Urine Urobilinogen Normal (Normal)
[2024-12-16 13:49] LABS: Internal QC Validated? YES +Cl - CLEAR BKGD; Pregnancy, Urine Negative Negative
[2024-12-16 13:53] LABS: Bacteria RARE /hpf (None Seen); Squamous Epithelial Cells - UA 25-50 SEEN /hpf (5-10)
[2024-12-16 14:06] LABS: ALB/GLOB Ratio 1.6 RATIO (0.9-2.4); AST(SGOT) 15 U/L (<=31); Alanine Aminotransfer ALT/SGPT 10 U/L (<=34); Alkaline Phosphatase 61 U/L (35-104); Anion Gap 12 (5-15); BUN 6 mg/dL (4-19); BUN/Creat Ratio 7.4 RATIO (10-20); Calcium,Total 9.2 mg/dL (7.6-11.0); Carbon Dioxide 21.4 mmol/L (21.0-32.0); Chloride 106 mmol/L (98-108); Creatinine, Serum 0.75 mg/dL (0.70-1.20); EST Glomerular Filtration Rate 101 (>60); Estimated Creatinine Clearance 87.46 ml/min (50-250); Globulin 2.5 g/dL (2.2-4.2); Glucose 115 mg/dL (70-99); Lipase 40 U/L (13-75); Potassium 3.8 mmol/L (3.3-5.1); Protein, Total 6.5 g/dL (5.9-8.4); Sodium Level 139 mmol/L (133-145); Total Bilirubin 0.29 mg/dL (0.00-1.30)
--- NOTE | 2024-12-16 14:25 | CM.ED ---
Social Work Date of referral: 11/26/24 Reason for referral: Withdrawal/Anxiety Referred by: ED nursing staff Patient provided consent to social work visit. Patient's mother (Kenyetta Corbin) was at patient's bedside. Patient presenting with high levels of anxiety. Patient having difficulty utilizing calming/relaxing strategies and wasn't able to understand why she is feeling the way she is. Patient denied using since being discharged from detox. Wholesale Account Executive spent a significant amount of time with patient and patient's mother providing education about the emotional withdrawal many experience during sobriety. Wholesale Account Executive talked with patient about the frequency and duration of use over the past several years and educated patient about the mental health component associated with getting clean and how if patient is having what might be a panic attack or high levels of unmanaged anxiety, those symptoms can often times also trigger physical symptoms which may look similar to physical symptoms patient experienced when going through the physical withdrawal of prescription drug abuse. Patient verbalized she understood. Wholesale Account Executive reviewed and provided various community resources, supports for mental health and the importance of gaining researched base skills that patient can utilize during times when she is experiencing an emotional reaction to trying to remain sober. Wholesale Account Executive engaged in relaxation techniques with patient and patient's mother which appeared to be very effective. Patient's mother expressed appreciation for social professionals and verbalized what a difference the social work visit made for them. No other questions/concerns noted/indicated at this time. Pat Avelar, RELAY RECORD CLERK, MAT TESTER
== END 2024-12-16 15:02 | disposition home or self-care (01) ==
PROVIDERS: Emergency Provider Emergency Medicine; PCP Internal Medicine; Visit Provider Emergency Medicine
DX: F11.10 Opioid abuse, uncomplicated (principal); F12.10 Cannabis abuse, uncomplicated; F17.210 Nicotine dependence, cigarettes, uncomplicated; D72.829 Elevated white blood cell count, unspecified; R53.81 Other malaise
CPT/HCPCS: 71045; 80053; 81001; 81025; 83690; 85025; 93005; 99285; A4216

== ENCOUNTER 2025-03-15 06:35 | Day surgery (SDC) | payer MEDICAID, SELFPAY ==
--- NOTE | 2025-03-07 13:49 | PCM.HP.BLA ---
History and Physical Date of Admission: 03/15/25 HPI: The patient is a 45 year old female presenting for pre-operative visit. She is scheduled for TVY, bilateral salpingectomy and possible cystoscopy, for post endometrial ablation on 03/15. Procedure discussed along with risks, benefits and complications. Other alternatives discussed for management. Consent form signed? Yes. ? ? PAST MEDICAL HISTORY PAST MEDICAL HISTORYDiagnosisDate?Abdominal pain, unspecified site??Abnormal glandular Papanicolaou smear of [id number]/08/2006?Abn. 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 No issues in 16 years?Depression??Diarrhea??Irritable bowel syndrome??Mental disorders complicating , childbirth, or the puerperium?? DEPRESSION?Migraine, unspecified, with intractable migraine, so stated, without mention of status migrainosus??Other and unspecified ovarian cyst??PMH - PAST MEDICAL HISTORY OF??Narcotic dependence requiring rehab in 2006?Temporomandibular joint disorders, unspecified? ? ? PAST SURGICAL HISTORY PAST SURGICAL HISTORYProcedureLateralityDate?ADENOIDECTOMY PRIMARY <AGE 14???Adenoidectomy?BX OF BREAST; [id number]/14/2022?Fibroadenomatous changes. Focal duct ectasia.?COLPOSCOPY CERVIX UPPER/ADJACENT VAGINA???Colposcopy?DILATION & CURETTAGE DX&/THER NONOBSTETRIC?06/27/2000?Dilation & curettage,TAB?ESOPHAGOGASTRODUODENOSCOPY TRANSORAL DIAGNOSTIC?11/01/2011?EGD [facility] inpt H-pylori negative?HYSTEROSCOPY ENDOMETRIAL ABLATION???[facility]?LIG/TRNSXJ FLP TUBE ABDL/VAG APPR UNI/BI?04/19/2006?Tubal ligation?MYRINGOTOMY ASPIR&/EUSTACHIAN TUBE NFLTJ ANES?06/27/1994?Myringotomy/tubes?OOPHORECTOMY PARTIAL/TOTAL UNI/BI???left?REPAIR ROTATOR CUFF,[id number]?TONSILLECTOMY PRIMARY/SECONDARY <AGE 14?06/27/1987?Tonsillectomy ? ? ? CURRENT MEDICATIONS Current Outpatient MedicationsMedicationSigDispenseRefill?ALPRAZolam (XANAX) 2 mg tabletTake 1 tablet by mouth two times a day as needed for anxiety for up to 14 days. Patient should start on March 04, 2025.28 tablet0?multivitamin (DAILY VITAMIN ORAL)Take 1 tablet by mouth once daily.???ondansetron (ZOFRAN) 4 mg tabletTake 1 tablet by mouth three times a day as needed for nausea/vomiting.90 tablet1?albuterol HFA (PROVENTIL HFA, VENTOLIN HFA) 90 mcg/actuation inhalerInhale 2 puffs as instructed every 4 hours as needed for wheezing/shortness of breath.1 each0?traZODone (DESYREL) 100 mg tabletTake 1 tablet by mouth daily at bedtime.90 tablet3?phenylephrine HCl/acetaminophn (EXCEDRIN SINUS HEADACHE ORAL)Take by mouth as needed (headache).???acetaminophen (TYLENOL) 325 mg tabletTake 650 mg by mouth every 6 hours as needed.???No current facility-administered medications for this visit. ? ? ALLERGIES: Pamprin Multi-Symptom [Tftdageanaver-Nahjnhvr-Urzxgxv], Buspar [Buspirone], Escitalopram, Codeine, Lamotrigine, Nitrofurantoin Macrocrystal, and Promethazine-Phenylephrine ? PERSONAL HISTORY: [SOCIAL HISTORY] [SOCIAL HISTORY] Social History Tobacco Use ? Smoking status: Every Day ? ? Current packs/day: 1.00 ? ? Average packs/day: 1 pack/day for 30.0 years (30.0 ttl pk-yrs) ? ? Types: Cigarettes ? Smokeless tobacco: Never Vaping Use ? Vaping status: Never Used Substance Use Topics ? Alcohol use: Not Currently ? Drug use: Yes ? ? Frequency: 7.0 times per week ? ? Types: Marijuana ? FAMILY HISTORY: FAMILY HISTORY FAMILY HISTORY ProblemRelationAge of Onset?PsychiatryMother?? DEPRESSION?HypertensionFather??Cervical CancerMaternal Grandmother??HypertensionMaternal Grandmother??CancerMaternal Grandfather?? BLADDER?HeartMaternal Grandfather?? [place] & EMPHYSEMA ? ? REVIEW OF SYMPTOMS: GENERAL: denies fevers or chills ENDOCRINOLOGY: has not been on steroids Cardiology : denies palpitations or chest pain Respiratory: denies SOB or cough Hematology: denies history of prolonged bleeding or easy bruising or VTE Allergy: Denies history of personal or family history of allergy to anesthesia ? PHYSICAL EXAMINATION: ? VITALS: Blood pressure 100/74, pulse 80, resp. rate 14, height 165.1 cm (5' 5), weight 54.9 kg (121 lb), last menstrual period 05/07/2009, SpO2 96%. ? GENERAL: The patient is well nourished, well hydrated in no acute distress. , The patient is oriented to time, place, and person. NECK: Supple. No lynphadenopathy, normal thyroid, no thyromegaly. LUNGS: Clear to auscultation bilaterally. no wheezes, rhonchi or rales ? IMPRESSION: postendometrial ablation syndrome, pelvic pain, adenomyosis, dyspareunia ? PLAN: The risks/benefits/alternatives and personal involved for the planned total vaginal hysterectomy with bilateral salpingectomy and possible cystoscopy were reviewed with the patient. Her questions were answered to her satisfaction and she desires to proceed. Consent was signed. I reviewed with her postop instructions and expectations. ? ? I have reviewed and updated past medical and surgical history, medications and allergies Assessment & Plan Assessment/Plan (1) Post endometrial ablation syndrome: (2) Adenomyosis: (3) Dyspareunia:
--- NOTE | 2025-03-08 13:10 | PAT.ANE_ITS ---
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 When Was Last Pacemaker Check QUESTION #4 FULL TEXT: You/Your Family Experience fever (hyperthermia) with Anesthesia Last Oral Intake Last Oral intake: Last Oral Intake NPO since Meds taken in AM with sips of water? Meds patient instructed to take am of surgery PONV PONV - audograph operator: PONV - audograph operator Female Yes 03/08/25 12:56 HX of Motion Sickness No 03/08/25 12:56 HX of N/V After Surgery No 03/08/25 12:56 Non-Smoker No 03/08/25 12:56 Duration of Surgery greater Yes 03/08/25 12:56 than 60 minutes Number of Risk Factors 2 03/08/25 12:56 PONV Score Moderate Risk 03/08/25 12:56 Height & Weight Height & Weight: Anesthesia: Height & Weight Height 5 ft 5 in 12/16/24 11:57 Respiratory Assessment Respiratory Assessment - audograph operator: Respiratory Tract Infection Hx - audograph operator Hx Respiratory Tract Infection No 03/08/25 12:56 STOP Sleep Apnea STOP Sleep Apnea - audograph operator: STOP Sleep Apnea - audograph operator Hx Hypertension No 03/08/25 12:56 Hx Sleep Apnea No 03/08/25 12:56 CPAP BIPAP Do you snore loudly (louder No 03/08/25 12:56 than talking or can be heard Do you often feel tired/ No 03/08/25 12:56 fatigued/ sleepy during daytime? Has anyone observed you stop No 03/08/25 12:56 breathing during sleep? STOP Results Negative 03/08/25 12:56 QUESTION #5 FULL TEXT : Do you snore loudly (louder than talking or can be heard through closed doors)? 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 Specify any problems Hx of Preganancy in last 3 No 03/08/25 12:56 Months Nurse Filling Out Transfusion DSCHRIBER 03/08/25 12:56 & Questions: Date: 03/08/25 03/08/25 12:56 Time: 12:58 03/08/25 12:56 Patient unable to answer at this time (ie. confused, unrespo /Reproduction History /Reproductive History - audograph operator: /Reproductive Hx- audograph operator Hx Now No 03/08/25 12:56 Gestational Age (in weeks): EDC: Hx Hx Para Hx Section SAB No 03/08/25 12:56 PFSH Medical History (Updated 03/08/25 @ 13:05 by Milagros Molina) Shortness of breath on exertion Opiate dependence Desire for detoxification Substance abuse Congestive heart failure (CHF) Marijuana use Wears partial dentures Hepatitis Smoker History of echocardiogram History of stress test Cardiology follow-up encounter History of CHF (congestive heart failure) Esophageal tear Anxiety Home Medications ?Medication ?Instructions ?Recorded ?Last Taken ?Type trazodone 100 mg tablet 100 mg PO QHS sleep 01/03/17 12/05/24 History inhalational spacing device 10/09/23 Unknown History (BreatheRite MDI Spacer) albuterol sulfate 90 mcg/actuation 2 puff inhalation Q 4H PRN PRN 12/06/24 Unknown History aerosol inhaler wheezing alprazolam 0.5 mg tablet 2 mg PO BID PRN PRN anxiety 12/06/24 12/04/24 History ondansetron HCl 4 mg tablet 4 mg PO TID PRN PRN nausea /vomiting 12/06/24 12/06/24 History Allergy/AdvReac Type Severity Reaction Status Date / Time escitalopram (From Lexapro) Allergy Other Verified 03/08/25 12:54 lamotrigine (From Lamictal) Allergy Hives Verified 03/08/25 12:54 nitrofurantoin (From Allergy Unknown Verified 03/08/25 12:54 Macrobid) nitrofurantoin Allergy Unknown Verified 03/08/25 12:54 macrocrystalline (From Macrobid) codeine AdvReac Nausea Verified 03/08/25 12:54 Family History Mother Anxiety Hypertension High cholesterol Diabetes Depression Father Hypertension Surgical History (Updated 03/08/25 @ 13:05 by Milagros Molina) Hx of excision of mass History of tubal ligation History of lumpectomy of right breast History of repair of rotator cuff Hx of surgical procedure Hx of removal of ovary History of tonsillectomy and adenoidectomy Social History household members: family housing: house Smoking Status: Current every day smoker tobacco type: cigarettes substance use type: marijuana additional social history: pt does not vape, does not take aspirin, pt does report using marijuana daily,does uses edibles on occassion, does use ibuprofen as needed. Recommendation Anesthesia Recommendation Anesthesia recommendation: OPTIMIZED for anesthesia
[2025-03-12 10:58] LABS: Hematocrit 40.6 % (37-47); Hemoglobin 14.3 g/dL (12.0-15.0); Mean Corp Hgb Conc 35.2 g/dL (32-36); Mean Corpuscular Volume 89.2 fL (81-99); Mean Platelet Vol. 9.8 fl (6.2-12.0); Platelet Count 340 K/mm3 (150-450); RBC Distribution Width CV 12.4 % (11.6-14.6); RBC Distribution Width SD 40.7 fl (35.1-43.9); Red Blood Count 4.55 M/mm3 (4.2-5.4); White Blood Count 13.7 K/mm3 (4.4-11.0)
[2025-03-12 11:38] LABS: Magnesium 1.9 mg/dL (1.5-2.2)
[2025-03-15] VITALS (15 sets, daily range): BP systolic 110–153; BP diastolic 71–99; PULSE 70–84; RESP 16; TEMP 36.1–36.8; O2SAT 97–100; BMI 20.6
--- OUTSIDE RECORDS SUMMARY | 2025-03-15 06:41 | XMS RPT_ITS | CCD ---
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 Normal 4.0 - 15 .0 mEq/L AO ADM SS Eosinophil, Absolute 0.0 103/mcL Normal 0.0 - 0 .7 10^3/mcL AO Workflow SS Eosinophils/100 WBC (Bld) 0.1 % Normal 0.0 - 6.0 % AO Workflow SS Erythrocyte distribution width (RBC) [Ratio] 13.2 % Normal 11.5 - 15.5 % AO Workflow SS Estimated Glomerular Filtration Rate 103 ml/min/1.73sqm Invalid Interpretation Code AO Chemistry S Comment on above: Interpretive Data: Stages of Chronic Kidney Disease (CKD) Stage Description eGFR(ml/min/1.73 sq.m.) CKD 1 Normal kidney function or >=90 normal kindney function with possible kidney damage (ex. Proteinuria) CKD 2 Kidney damage with mild loss 60-89 of kidney function CKD 3a Mild to moderate loss of kidney 45-59 function CKD 3b Moderate to severe loss of 30-44 of kindey function CKD 4 Severe loss of kidney function 15-29 CKD 5 Kidney failure <15 Note: (go live 2024) the eGFR calculation was updated to the 2020 CKD-EPI creatinine equation without a race factor to calculate the eGFR results. Glucose [Mass/Vol] 127 mg/dL High 70 - 105 mg/dL AO ADM SS Hematocrit (Bld) [Volume fraction] 41.6 % Normal 34.0 - 46.0 % AO Workflow SS Hemoglobin (Bld) [Mass/Vol] 14.6 G/dL Normal 12.0 - 16.0 G/dL AO Workflow SS Lymphocytes (Bld) [#/Vol] 1.3 103/mcL Normal 0.9 - 4.3 10^3/mcL AO Workflow SS Lymphocytes/100 WBC (Bld) 13.3 % Low 20.0 - 40.0 % AO Workflow SS MCH (RBC) [Entitic mass] 31.8 pg Normal 27.0 - 33.0 pg AO Workflow SS MCHC 35.2 G/dL Normal 32.0 - 36.0 G/dL AO Workflow SS MCV (RBC) [Entitic vol] 90.6 fL Normal 80.0 - 99.0 fL AO Workflow SS Monocyte distribution width Auto (Bld) [Entitic vol] 14.56 1 Normal 0.00 - 20.00 AO Workflow SS Comment on above: Result Comment: For ED adult patients suspected of sepsis, MDW<=20.0 does not rule out sepsis or risk of sepsis Monocytes (Bld) [#/Vol] 0.3 103/mcL Normal 0.1 - 1.4 10^3/mcL AO Workflow SS Monocytes/100 WBC (Bld) 3.0 % Normal 2.0 - 13.0 % AO Workflow SS Neutrophils (Bld) [#/Vol] 8.0 103/mcL Normal 2.3 - 8.1 10^3/mcL AO Workflow SS Neutrophils/100 WBC (Bld) 83.3 % High 50.0 - 75.0 % AO Workflow SS Platelet mean volume (Bld) [Entitic vol] 7.7 fL Normal 6.6 - 10.5 fL AO Workflow SS Platelets (Bld) [#/Vol] 284 103/mcL Normal 150 - 450 10^3/mcL AO Workflow SS Potassium [Moles/Vol] 3.7 mmol/L Normal 3.5 - 5.1 mmol/L AO ADM SS RBC (Bld) [#/Vol] 4.59 106/mcL Normal 4.10 - 5.3 0 10^6/mcL AO Workflow SS Sodium [Moles/Vol] 138 mmol/L Normal 136 - 145 mmol/L AO ADM SS Urea nitrogen [Mass/Vol] 4 mg/dL Low 7 - 18 mg/dL AO ADM SS Urea nitrogen/Creatinine [Mass ratio] 5 ratio Low 7 - 27 ratio AO ADM SS WBC (Bld) [#/Vol] 9.7 103/mcL Normal 4.5 - 10.8 10^3/mcL AO Workflow SS PREGUon 02-28-2025 HCG ( test) Ql (U) Negative Normal [facility] Comment on above: Performed By: #### U A, PREGU, UAMIC ####[address] [place] [id number] test (u) int Not detected Invalid Interpretation Code [facility] Comment on above: Performed By: #### U A, PREGU, UAMIC ####[address] [place], [place] [address] UAon 02-28-2025 Color (U) Yellow Normal [facility] Comment on above: Performed By: #### U A, PREGU, UAMIC ####[address] [place], [place] [address] Glucose (U) [Mass/Vol] Negative Normal Negative [facility] Comment on above: Performed By: #### U A, PREGU, UAMIC ####[address] [place] [phone] Ketones Ql (U) 15 mg/dL Abnormal Negative [facility] Comment on above: Performed By: #### U A, PREGU, UAMIC ####[address] [place], [place] [address] UA Appear Clear Normal Clear [facility] Comment on above: Performed By: #### U A, PREGU, UAMIC ####[address] [place], [place] [address] UA Bili Small Abnormal Negative [facility] Comment on above: Performed By: #### U A, PREGU, UAMIC ####[address] [place], [place] [address] UA Blood Small Abnormal Negative [facility] Comment on above: Performed By: #### U A, PREGU, UAMIC ####[address] [place] [address] UA Leuk Est Negative Normal Negative [facility] Comment on above: Performed By: #### U A, PREGU, UAMIC ####[address] [place] [address] UA Nitrite Negative Normal Negative [facility] Comment on above: Performed By: #### U A, PREGU, UAMIC ####[address] [place] [address] UA pH 6.0 Normal 5.0 - 8.0 [facility] Comment on above: Performed By: #### U A, PREGU, UAMIC ####[address] [place] [address] UA Protein Negative Normal Negative [facility] Comment on above: Performed By: #### U A, PREGU, UAMIC ####[address] [place] [address] UA Spec Grav 1.025 Normal 1.015-1.025 [facility] Comment on above: Performed By: #### U A, PREGU, UAMIC ####[address] [place] [address] UA Specimen Type Clean Catch Normal [facility] Comment on above: Performed By: #### U A, PREGU, UAMIC ####[address] [place] [address] UA Urobilinogen 0.2 E.U./dL Normal 0.2-1.0 [facility] Comment on above: Performed By: #### U A, PREGU, UAMIC ####[address] [place] [address] UAMICon 02-28-2025 UA RBC 0-2 Normal 0-2 [facility] Comment on above: Performed By: #### U A, PREGU, UAMIC ####[address] [place], [place] [address] UA Squam Epithelial 0-2 Normal 0-20 [facility] Comment on above: Performed By: #### U A, PREGU, UAMIC ####[address] [place], [place] [address] UA WBC 0-2 Normal 0-5 [facility] Comment on above: Performed By: #### U A, PREGU, UAMIC ####[address] [place], [place] [address] CNPNon 02-27-2025 CNPN Normal [facility] .Auto Diffon 02-26-2025 Basophil, Absolute 0.1 10 3/mcL Normal 0.0-0.3 [facility] Comment on above: Performed By: #### C ALL NICHOLAS MDW, GFR, ADIFF, BMP ####[address] [place], [place] [address] Basophils/100 WBC (Bld) 0.7 % Normal 0.0-2.5 [facility] Comment on above: Performed By: #### C ALL NICHOLAS MDW, GFR, ADIFF, BMP ####[address] [place], [place] [address] Eosinophil, Absolute 0.2 10 3/mcL Normal 0.0-0.7 [facility] Comment on above: Performed By: #### C ALL NICHOLAS MDW, GFR, ADIFF, BMP ####[address] [place], [place] [address] Eosinophils/100 WBC (Bld) 2.3 % Normal 0.0-6.0 [facility] Comment on above: Performed By: #### C ALL NICHOLAS MDW, GFR, ADIFF, BMP ####[address] [place], [place] [address] Lymphocyte, Absolute 3.8 10 3/mcL Normal 0.9-4.3 [facility] Comment on above: Performed By: #### C BC, ANEU, MDW, GFR, ADIFF, BMP ####[address] [place], [place] [address] Lymphocytes/100 WBC (Bld) 36.2 % Normal 20.0-40.0 [facility] Comment on above: Performed By: #### C BC, ANEU, MDW, GFR, ADIFF, BMP ####[address] [place], [place] [address] Monocyte, Absolute 0.6 10 3/mcL Normal 0.1-1.4 [facility] Comment on above: Performed By: #### C BC, ANEU, MDW, GFR, ADIFF, BMP ####[address] [place], [place] [address] Monocytes/100 WBC (Bld) 5.9 % Normal 2.0-13.0 [facility] Comment on above: Performed By: #### C CRISTOPHER, ALL, MDW, GFR, ADIFF, BMP ####[address] [place], [place] [address] Neutrophils/100 WBC (Bld) 54.9 % Normal 50.0-75.0 [facility] Comment on above: Performed By: #### C CRISTOPHER, ALL, MDW, GFR, ADIFF, BMP ####[address] [place], [place] [address] .GFRon 02-26-2025 Estimated Glomerular Filtration Rate 95 ml/min/1.73sqm Normal [facility] Comment on above: Result Comment: Stages of Chronic Kidney Disease (CKD) Stage Description eGFR(ml/min/1.73 sq.m.) CKD 1 Normal kidney function or >=90 normal kindney function with possible kidney damage (ex. Proteinuria) CKD 2 Kidney damage with mild loss 60-89 of kidney function CKD 3a Mild to moderate loss of kidney 45-59 function CKD 3b Moderate to severe loss of 30-44 of kindey function CKD 4 Severe loss of kidney function 15-29 CKD 5 Kidney failure <15 Note: (go live 2024) the eGFR calculation was updated to the 2020 CKD-EPI creatinine equation without a race factor to calculate the eGFR results. Performed By: #### C CRISTOPHER, ALL, MDW, GFR, ADIFF, BMP ####[place] [address] [place], [place] [address] .MDWon 02-26-2025 Monocyte Distribution Width 14.36 Normal 0.00-20.00 [facility] Comment on above: Result Comment: For ED adult patients suspected of sepsis, MDW<=20.0 does not rule out sepsis or risk of sepsis Performed By: #### C BC, ALL MDW, GFR, ADIFF, BMP ####[place] [address] [place], [place] [address] .NEUABSon 02-26-2025 Neutrophil, Absolute 5.8 10 3/mcL Normal 2.3-8.1 [facility] Comment on above: Performed By: #### C CRISTOPHER, ALL MDW, GFR, ADIFF, BMP ####[place] [address] [place], [place] [address] BMPon 02-26-2025 BUN/Creatinine Ratio 6 ratio Low 7-27 [facility] Comment on above: Performed By: #### C CRISTOPHER, ALL, MDW, GFR, ADIFF, BMP ####[place] [address] [place], [place] [address] Calcium [Mass/Vol] 8.6 mg/dL Normal 8.4-10.2 [facility] Comment on above: Performed By: #### C CRISTOPHER, ALL, MDW, GFR, ADIFF, BMP ####[address] [address] Chloride [Moles/Vol] 104 mmol/L Normal 98-107 [facility] Comment on above: Performed By: #### C CRISTOPHER, ALL, MDW, GFR, ADIFF, BMP ####[address] [address] CO2 [Moles/Vol] 28 mmol/L Normal 22-29 [facility] Comment on above: Performed By: #### C BC, ALL, MDW, GFR, ADIFF, BMP ####[place] [address] [place], [place] [address] Creatinine [Mass/Vol] 0.79 mg/dL Normal 0.51-0.95 [facility] Comment on above: Performed By: #### C CRISTOPHER, CHANCE CARRIZALES, GFR, ADIFF, BMP ####[address] [place], [place] [address] Electrolyte Balance 5.0 mEq/L Normal 4.0-15.0 [facility] Comment on above: Performed By: #### C CRISTOPHER, CHANCE CARRIZALES, GFR, ADIFF, BMP ####[address] [place], [place] [address] Glucose [Mass/Vol] 85 mg/dL Normal 70-105 [facility] Comment on above: Performed By: #### C CRISTOPHER, CHANCE CARRIZALES, GFR, ADIFF, BMP ####[address] [place], [place] [address] Potassium [Moles/Vol] 3.4 mmol/L Low 3.5-5.1 [facility] Comment on above: Performed By: #### C CRISTOPHER, CHANCE CARRIZALES, GFR, ADIFF, BMP ####[address] [place], [place] [address] Sodium [Moles/Vol] 137 mmol/L Normal 136-145 [facility] Comment on above: Performed By: #### C CRISTOPHER, CHANCE CARRIZALES, GFR, ADIFF, BMP ####[address] [place], [place] [address] Urea nitrogen [Mass/Vol] 5 mg/dL Low 7-18 [facility] Comment on above: Performed By: #### C CRISTOPHER, CHANCE CARRIZALES, GFR, ADIFF, BMP ####[address] [place], [place] [address] CBCon 02-26-2025 Erythrocyte distribution width (RBC) [Ratio] 13.6 % Normal 11.5-15.5 [facility] Comment on above: Performed By: #### C CRISTOPHER, CHANCE CARRIZALES, GFR, ADIFF, BMP ####[address] [place], [place] [address] Hematocrit (Bld) [Volume fraction] 40.4 % Normal 34.0-46.0 [facility] Comment on above: Performed By: #### C CRISTOPHER, CHANCE CARRIZALES, GFR, ADIFF, BMP ####[address] [place], [place] [address] Hgb 14.0 G/dL Normal 12.0-16.0 [facility] Comment on above: Performed By: #### C CRISTOPHER, MD ALLW, GFR, ADIFF, BMP ####[address] [place], [place] [address] MCH (RBC) [Entitic mass] 31.7 pg Normal 27.0-33.0 [facility] Comment on above: Performed By: #### C CRISTOPHER, MD ALLW, GFR, ADIFF, BMP ####[address] [place], [place] [address] MCHC 34.6 G/dL Normal 32.0-36.0 [facility] Comment on above: Performed By: #### C CRISTOPHER, MD ALLW, GFR, ADIFF, BMP ####[address] [place], [place] [address] MCV (RBC) [Entitic vol] 91.6 fL Normal 80.0-99.0 [facility] Comment on above: Performed By: #### C CRISTOPHER, MD ALLW, GFR, ADIFF, BMP ####[address] [place], [place] [address] Platelet 281 10 3/mcL Normal 150-450 [facility] Comment on above: Performed By: #### C CRISTOPHER, ALL, W, GFR, ADIFF, BMP ####[place] [address] [place], [place] [address] Platelet mean volume (Bld) [Entitic vol] 7.6 fL Normal 6.6-10.5 [facility] Comment on above: Performed By: #### C CRISTOPHER, ALL, W, GFR, ADIFF, BMP ####[address] [place], [place] [address] RBC 4.42 10 6/mcL Normal 4.10-5.30 [facility] Comment on above: Performed By: #### C ALL NICHOLAS MDW, GFR, [place], BMP ####[address] [place], [place] [address] WBC 10.6 10 3/mcL Normal 4.5-10.8 [facility] Comment on above: Performed By: #### C ALL NICHOLAS MDW, GFR, ADTILA, BMP ####[address] [place], [place] [address] CNOVon 02-26-2025 CNOV Normal [facility] LABORATORYOrdered By: SYSTEM SYSTEM on 02-26-2025 Basophils (Bld) [#/Vol] 0.1 103/mcL Normal 0.0 - 0.3 10^3/mcL AO Workflow SS Basophils/100 WBC (Bld) 0.7 % Normal 0.0 - 2.5 % AO Workflow SS Calcium [Mass/Vol] 8.6 mg/dL Normal 8.4 - 10. 2 mg/dL AO ADM SS Chloride [Moles/Vol] 104 mmol/L Normal 98 - 10 7 mmol/L AO ADM SS CO2 [Moles/Vol] 28 mmol/L Normal 22 - 29 mmol/L AO ADM SS Creatinine [Mass/Vol] 0.79 mg/dL Normal 0.51 - 0.95 mg/dL AO ADM SS Electrolyte Balance 5.0 mEq/L Normal 4.0 - 15 .0 mEq/L AO ADM SS Eosinophil, Absolute 0.2 103/mcL Normal 0.0 - 0 .7 10^3/mcL AO Workflow SS Eosinophils/100 WBC (Bld) 2.3 % Normal 0.0 - 6.0 % AO Workflow SS Erythrocyte distribution width (RBC) [Ratio] 13.6 % Normal 11.5 - 15.5 % AO Workflow SS Estimated Glomerular Filtration Rate 95 ml/min/1.73sqm Invalid Interpretation Code AO Chemistry S Comment on above: Interpretive Data: Stages of Chronic Kidney Disease (CKD) Stage Description eGFR(ml/min/1.73 sq.m.) CKD 1 Normal kidney function or >=90 normal kindney function with possible kidney damage (ex. Proteinuria) CKD 2 Kidney damage with mild loss 60-89 of kidney function CKD 3a Mild to moderate loss of kidney 45-59 function CKD 3b Moderate to severe loss of 30-44 of kindey function CKD 4 Severe loss of kidney function 15-29 CKD 5 Kidney failure <15 Note: (go live 2024) the eGFR calculation was updated to the 2020 CKD-EPI creatinine equation without a race factor to calculate the eGFR results. Glucose [Mass/Vol] 85 mg/dL Normal 70 - 105 mg/dL AO ADM SS Hematocrit (Bld) [Volume fraction] 40.4 % Normal 34.0 - 46.0 % AO Workflow SS Hemoglobin (Bld) [Mass/Vol] 14.0 G/dL Normal 12.0 - 16.0 G/dL AO Workflow SS Lymphocytes (Bld) [#/Vol] 3.8 103/mcL Normal 0.9 - 4.3 10^3/mcL AO Workflow SS Lymphocytes/100 WBC (Bld) 36.2 % Normal 20.0 - 40.0 % AO Workflow SS MCH (RBC) [Entitic mass] 31.7 pg Normal 27.0 - 33.0 pg AO Workflow SS MCHC 34.6 G/dL Normal 32.0 - 36.0 G/dL AO Workflow SS MCV (RBC) [Entitic vol] 91.6 fL Normal 80.0 - 99.0 fL AO Workflow SS Monocyte distribution width Auto (Bld) [Entitic vol] 14.36 1 Normal 0.00 - 20.00 AO Workflow SS Comment on above: Result Comment: For ED adult patients suspected of sepsis, MDW<=20.0 does not rule out sepsis or risk of sepsis Monocytes (Bld) [#/Vol] 0.6 103/mcL Normal 0.1 - 1.4 10^3/mcL AO Workflow SS Monocytes/100 WBC (Bld) 5.9 % Normal 2.0 - 13.0 % AO Workflow SS Neutrophils (Bld) [#/Vol] 5.8 103/mcL Normal 2.3 - 8.1 10^3/mcL AO Workflow SS Neutrophils/100 WBC (Bld) 54.9 % Normal 50.0 - 75.0 % AO Workflow SS Platelet mean volume (Bld) [Entitic vol] 7.6 fL Normal 6.6 - 10.5 fL AO Workflow SS Platelets (Bld) [#/Vol] 281 103/mcL Normal 150 - 450 10^3/mcL AO Workflow SS Potassium [Moles/Vol] 3.4 mmol/L Low 3.5 - 5.1 mmol/L AO ADM SS RBC (Bld) [#/Vol] 4.42 106/mcL Normal 4.10 - 5.3 0 10^6/mcL AO Workflow SS Sodium [Moles/Vol] 137 mmol/L Normal 136 - 145 mmol/L AO ADM SS Urea nitrogen [Mass/Vol] 5 mg/dL Low 7 - 18 mg/dL AO ADM SS Urea nitrogen/Creatinine [Mass ratio] 6 ratio Low 7 - 27 ratio AO ADM SS WBC (Bld) [#/Vol] 10.6 103/mcL Normal 4.5 - 10.8 10^3/mcL AO Workflow SS LABORATORYOrdered By: Marta Alvarez on 02-26-2025 Appearance (U) Clear (02/26/25 8:42 PM) Normal Clear AO Auto Urine SS Bilirubin Ql (U) Negative (02/26/25 8:42 PM) Normal Negative AO Auto Urine SS Color (U) Yellow (02/26/25 8:42 PM) Normal AO Auto Urine SS Glucose Test strip (U) [Mass/Vol] Negative Normal Negative AO Auto Urine SS HCG ( test) Ql Negative (02/26/25 8:42 PM) Normal AO Manual Urine SS Hemoglobin Auto test strip (U) [Mass/Vol] Negative (02/26/25 8:42 PM) Normal Negative AO Auto Urine SS Ketones Ql (U) Trace mg/dL Invalid Interpretation Code Negative AO Auto Urine SS test (u) int Not detected Invalid Interpretation Code AO Manual Urine SS UA Leuk Est Negative (02/26/25 8:42 PM) Normal Negative AO Auto Urine SS UA Nitrite Negative (02/26/25 8:42 PM) Normal Negative AO Auto Urine SS UA pH 7.0 (02/26/25 8:42 PM) Normal 5.0 - 8.0 AO Auto Urine SS UA Protein Negative Normal Negative AO Auto Urine SS UA Spec Grav 1.015 (02/26/25 8:42 PM) Normal 1.015-1.025 AO Auto Urine SS UA Specimen Type Clean Catch (02/26/25 8:42 PM) Normal AO Auto Urine SS UA Urobilinogen 1.0 E.U./dL Normal 0.2-1.0 AO Auto Urine SS PREGUon 02-26-2025 HCG ( test) Ql (U) Negative Normal [facility] Comment on above: Performed By: #### P REGU, UA ####[place] [address] test (u) int Not detected Invalid Interpretation Code [facility] Comment on above: Performed By: #### P REGU, UA ####[place] [id number] UAon 02-26-2025 Color (U) Yellow Normal [facility] Comment on above: Performed By: #### P REGU, UA #### [place] [address] Glucose (U) [Mass/Vol] Negative Normal Negative [facility] Comment on above: Performed By: #### P REGU, UA #### [place] [address] Ketones Ql (U) Trace Abnormal Negative [facility] Comment on above: Performed By: #### P REGU, UA #### [place] [address] UA Appear Clear Normal Clear [facility] Comment on above: Performed By: #### P REGU, UA #### [address] [address] UA Blood Negative Normal Negative [facility] Comment on above: Performed By: #### P REGU, UA #### [place] [address] UA Leuk Est Negative Normal Negative [facility] Comment on above: Performed By: #### P REGU, UA #### [place] [id number] UA Nitrite Negative Normal Negative [facility] Comment on above: Performed By: #### P REGU, UA #### [place] [id number] UA pH 7.0 Normal 5.0 - 8.0 [facility] Comment on above: Performed By: #### P REGU, UA #### [address] [address] UA Protein Negative Normal Negative [facility] Comment on above: Performed By: #### P REGU, UA #### [address] [address] UA Spec Grav 1.015 Normal 1.015-1.025 [facility] Comment on above: Performed By: #### P REGU, UA #### [place] [address] UA Specimen Type Clean Catch Normal [facility] Comment on above: Performed By: #### P REGU, UA #### [place] [id number] UA Urobilinogen 1.0 E.U./dL Normal 0.2-1.0 [facility] Comment on above: Performed By: #### P REGU, UA #### [place] [address] Urobilinogen (U) [Mass/Vol] Negative Normal Negative [facility] Comment on above: Performed By: #### P REGU, UA #### [place] [address] US PELVIS NON-OB W/TRANSVAGI NALon 02-26-2025 US PELVIS NON-OB W/TRANSVAGINAL ORIGINAL EXAMINATION: TRANSVAGINAL PELVIC ULTRASOUND 02/26/2025 All images recorded and archived. TECHNIQUE: Transvaginal pelvic ultrasound was performed. COMPARISON: CT abdomen pelvis 04/29/2024 HISTORY: ORDERING SYSTEM PROVIDED HISTORY: Reason for Exam: pelvic pain FINDINGS: Measurements: Uterus: 9.4 x 5.2 x 5.1cm Endometrial stripe: 0.9 cm Right Ovary:4.2 x 2.3 x 2.4 cm Left Ovary: Surgically absent. Ultrasound Findings: Uterus: Fundal region fibroid measuring 2.3 cm. Another likely fibroid in lower uterine segment measuring 1 cm.. Endometrial stripe: Endometrial stripe is heterogeneous with a small cyst at endometrial myometrial interface measuring 0.7 cm. Right Ovary: Right ovary shows echogenic structure measuring 2.1 x 1.9 cm, possibly hemorrhagic cyst. Another small cyst measuring 2 cm, possibly corpus luteal cyst. There is normal arterial and venous Doppler flow and spectral waveform. Left Ovary: Left ovary is surgically absent Free Fluid: Mild free fluid. IMPRESSION: No acute abnormality. Uterine fibroids. Likely hemorrhagic and corpus luteal cysts in right ovary. I have personally reviewed the images of this examination and agree with the resident's findings and interpretation. Interpreted by: John Butler Preliminary Report By: Anthony Ruffin Electronically signed By John Butler Dictated Date: 02/26/2025 10:17:09 PM Prelim Date: 02/26/2025 10:27:06 PM Sign Date: 02/26/2025 10:31:20 PM Ordering Provider: AVIS AUSTIN [facility] CNPNon 02-12-2025 CNPN Normal [facility] CNOVon 02-04-2025 CNOV Normal [facility] CNOVon 02-01-2025 CNOV Normal [facility] CNPNon 02-01-2025 CNPN Normal [facility] CNPNon 01-29-2025 CNPN Normal [facility] CNOVon 01-14-2025 CNOV Normal [facility] CNTHERAPYon 01-14-2025 CNTHERAPY Normal [facility] THERAPY NTon 01-14-2025 THERAPY NT Normal [facility] CNOVon 01-09-2025 CNOV Normal [facility] STREP A MOLECULAR (POC)on Procedural Control Valid [facility] Strep A (POCT) Negative Negative [facility] CNTHERAPYon 01-08-2025 CNTHERAPY Normal [facility] CNCOon 01-03-2025 CNCO Letter Text Normal [facility] CNPNon 01-03-2025 CNPN Telephone ([id number]) PAT MEDINA ([id number]) 1980 F Date Time Provider Department 01/03/25 CHARLES STANTON [id number] During your visit today, we recorded the following information about you: Lasha Howard 01/03/2025 10:51 AM Signed No Show Documentation Pat Medina no showed for an appointment on 01/03/25 with Charles Stanton APRN.CNP at 8:30. She was scheduled for S/P shoulder surgery [Z98.890]; Traumatic tear of right rotator cuff, unspecified tear extent, subsequent encounter [S46.011D]; Acute pain of right shoulder [M25.511]. I called and LVM Pat stated the reason that she missed her appointment was because n/a. Resources discussed/offered to patient: call office to reschedule No show determined to be fault of patient: N/A This is the patients first no show in the last 12 months. Patient was rescheduled for n/a. Letter mailed : Yes Is this the Third or Fourth No Show? No Lasha Howard January 03, 2025 10:50 AM Allergies As of Date: 01/03/2025 Noted Allergy Reaction PAMPRIN MULTI-SYMPTOM (ACETAMINOP* 7 2 - Rash 9 - Itching 12 - Shortness of Breath Comments: Severe itching all over body, slight rash, hyper ventilating, lips swelled badly BUSPAR (BUSPIRONE) 11/12/2020 1 - Mental Status Change Comments: Caused suicidal thoughts ESCITALOPRAM 09/04/2022 5 - Intolerance OXYCODONE 10/19/2024 11 - Vomiting Comments: Pain oxycodone caused nausea and vomiting; does tolerate Percocet CODEINE 02/03/2007 4 - Hives 9 - Itching LAMOTRIGINE 01/03/2017 4 - Hives NITROFURANTOIN MACROCRYSTAL 12/24/2014 16 - Unknown PROMETHAZINE-PHENYLEP HRINE 04/27/2010 5 - Intolerance Comments: Make her feel like passing out Date Reviewed: 12/24/2024 Reviewed by: Sam Khan APRN.CNP - Fully Assessed Reason for Visit: No Show [9028] Cmt: Missed #1 Prescriptions as of 01/03/2025 - ALPRAZolam (XANAX) 1 mg tablet Take 1 tablet by mouth three times a day as needed for anxiety for up to 30 days. Ok to fill today due to dose adjustment. - atomoxetine (STRATTERA) 40 mg capsule Take 1 capsule by mouth once daily. - multivitamin (DAILY VITAMIN ORAL) Take 1 tablet by mouth once daily. - ondansetron (ZOFRAN) 4 mg tablet Take 1 tablet by mouth three times a day as needed for nausea/vomiting. - docusate sodium (COLACE) 100 mg capsule Take 1 capsule by mouth two times a day. - albuterol HFA (PROVENTIL HFA, VENTOLIN HFA) 90 mcg/actuation inhaler Inhale 2 puffs as instructed every 4 hours as needed for wheezing/shortness of breath. - gabapentin (NEURONTIN) 300 mg capsule Take 1 capsule by mouth three times a day for 90 days. - meloxicam (MOBIC) 15 mg tablet Take 1 tablet by mouth once daily. With food. - traZODone (DESYREL) 100 mg tablet Take 1 tablet by mouth daily at bedtime. - lidocaine (LIDODERM) 5 % Apply 1 Patch as directed every 24 hours. Wear patch for 12 hours and then remove for 12 hours prior to placing new patch, apply to the right shoulder area. - tiZANidine (ZANAFLEX) 4 mg tablet Take 1 tablet by mouth every 6 hours as needed. For muscle tightness/pain (muscle relaxer) - Ibuprofen 200 mg cap Take by mouth every 6 hours as needed for pain. - phenylephrine HCl/acetaminophn (EXCEDRIN SINUS HEADACHE ORAL) Take by mouth as needed (headache). - acetaminophen (TYLENOL) 325 mg tablet Take 650 mg by mouth every 6 hours as needed. Problem List As Of Date 01/03/2025 Noted Resolved Irritable bowel syndrome [K58.9] 10/27/2012 Nonallopathic lesion of lower extremities, not *11/23/2005 10/27/2012 ALLERGIC RHINITIS NOS [J30.9] 04/05/2006 Migraine, unspecified, with intractable migrain* 10/27/2012 Diarrhea [R19.7] Internal derangement of knee [M23.90] 07/28/2009 10/27/2012 Chronic pain [G89.29] 05/29/2010 07/09/2024 Depression [F32.A] Anxiety [F41.9] Attention deficit hyperactivity disorder (ADHD)*09/19/2013 Hypertension [I10] 09/11/2014 Congestive heart failure (HCC) [I50.9] 09/11/2014 Hepatitis C virus infection without hepatic com*06/15/2016 Chronic hepatitis C without hepatic coma (HCC) *06/15/2016 06/15/2016 Insomnia [G47.00] 01/26/2017 Tobacco use disorder [F17.200] 04/30/2023 Pre-op exam [Z01.818] 08/18/2023 Bicipital tendonitis of right shoulder [M75.21] 08/18/2023 H/O chronic hepatitis [Z87.19] 08/18/2023 Marijuana use [F12.90] 08/18/2023 Migraines [G43.909] 08/18/2023 Personal history of congestive heart failure [Z*08/18/2023 Diagnosed: 08/18/2023 Bicipital tendinitis of right shoulder [M75.21] 09/05/2023 S/P right rotator cuff repair [Z98.890] 11/26/2024 Right shoulder pain [M25.511] 11/26/2024 Encounter Status:Closed by LASHA HOWARD on 01/03/25 [facility] CNOVon 12-24-2024 CNOV Normal [facility] CNPNon 12-24-2024 CNPN Normal [facility] CNTHERAPYon 12-24-2024 CNTHERAPY Normal [facility] THERAPY NTon 12-24-2024 THERAPY NT [facility] 12 Lead EKGon 12-16-2024 12 Lead EKG [facility] Cardiovascular Services [address] [place] [address] 12 Lead EKG 12/16/24 1312 MR#: [id number] Acct: [id number] Name: PAT MEDINA Rep #: [id number] : 1980 44 From: Collin Starks MD Attending Dr: Status: DEP ER Ordering Dr: Iain Reina DO Date: 12/16/24 Location: ED Sex: F C Admitted: Test Reason : SUBSTANCE ABUSE Blood Pressure : */* mmHG Vent. Rate : 70 BPM Atrial Rate : 70 BPM P-R Int : 162 ms QRS Dur : 86 ms QT Int : 460 ms P-R-T Axes : 27 72 57 degrees QTcB Int : 496 ms Normal sinus rhythm Prolonged QT Abnormal ECG Confirmed by TAVARES GARCIA, COLLIN ([id number]), staff editor DENNY VICENTE ([id number]) on 12/18/2024 6:44:24 AM Referred By: Confirmed By: COLLIN STARKS MD 12/18/24 0644 Date Collin Starks MD CC: Dr. Maile Norman MD; Dr. Iain Reina, DO Signed Normal [facility] CBC W/Diff, Automatedon 11-26 Absolute Lymph 2.03 X10 3/uL Normal 0.83-4.51 [facility] Comment on above: Performed By: #### L 500.4050, L501.2450, L100.0100 ####[facility] [address] [place], [address] Absolute Neut 9.5 X10 3/uL High 2.0-7.7 [facility] Comment on above: Performed By: #### L 500.4050, L501.2450, L100.0100 ####[facility] [address] [place], [address] Basophils/100 WBC (Bld) 0.6 % Normal 0-1 [facility] Comment on above: Performed By: #### L 500.4050, L501.2450, L100.0100 ####[facility] [address] [place], [address] Eosinophils/100 WBC (Bld) 0.1 % Normal 0-5 [facility] Comment on above: Performed By: #### L 500.4050, L501.2450, L100.0100 ####[facility] [address] [place], [address] Erythrocyte distribution width (RBC) [Ratio] 12.0 % Normal 11.6-14.6 [facility] Comment on above: Performed By: #### L 500.4050, L501.2450, L100.0100 ####[facility] [address] [place], [address] Hematocrit (Bld) [Volume fraction] 40.2 % Normal 37-47 [facility] Comment on above: Performed By: #### L 500.4050, L501.2450, L100.0100 ####[facility] [address] [place], [address] Hemoglobin (Bld) [Mass/Vol] 14.2 g/dL Normal 12.0-15.0 [facility] Comment on above: Performed By: #### L 500.4050, L501.2450, L100.0100 ####[facility] [address] [place], [address] IG% 0.400 Normal 0.0-0.9 [facility] Comment on above: Result Comment: IG% - Immature Granulocytes (promyelocytes, myelocytes and metamyelocytes) > 1% indicates that a LEFT SHIFT is Present. Performed By: #### L 500.4050, L501.2450, L100.0100 ####[facility] [address] [place], [address] Lymphocytes/100 WBC (Bld) 16.7 % Low 19-41 [facility] Comment on above: Performed By: #### L 500.4050, L501.2450, L100.0100 ####[facility] [address] [place], [address] MCH (RBC) [Entitic mass] 31.6 pg Normal 27.0-32.0 [facility] Comment on above: Performed By: #### L 500.4050, L501.2450, L100.0100 ####[facility] [address] [place], [address] MCHC (RBC) [Mass/Vol] 35.3 g/dL Normal 32-36 [facility] Comment on above: Performed By: #### L 500.4050, L501.2450, L100.0100 ####[facility] [address] [place], [address] MCV (RBC) [Entitic vol] 89.3 fL Normal 81-99 [facility] Comment on above: Performed By: #### L 500.4050, L501.2450, L100.0100 ####[facility] [address] [place], [address] Monocytes/100 WBC (Bld) 4.3 % Normal 0-10 [facility] Comment on above: Performed By: #### L 500.4050, L501.2450, L100.0100 ####[facility] [address] [place], [address] Neutrophils/100 WBC (Bld) 77.9 % High 47-70 [facility] Comment on above: Performed By: #### L 500.4050, L501.2450, L100.0100 ####[facility] [address] [place], [address] Nucleated RBC (Bld) [#/Vol] 0 10*3/uL Normal 0-5 [facility] Comment on above: Performed By: #### L 500.4050, L501.2450, L100.0100 ####[facility] [address] [place], [address] Platelet mean volume (Bld) [Entitic vol] 9.3 fL Normal 6.2-12.0 [facility] Comment on above: Performed By: #### L 500.4050, L501.2450, L100.0100 ####[facility] [address] [place], [address] Platelets (Bld) [#/Vol] 358 10*3/uL Normal 150-450 [facility] Comment on above: Performed By: #### L 500.4050, L501.2450, L100.0100 ####[facility] [address] [place], [address] RBC (Bld) [#/Vol] 4.50 10*6/uL Normal 4.2-5.4 [facility] Comment on above: Performed By: #### L 500.4050, L501.2450, L100.0100 ####[facility] [address] [place], [address] RDW SD 39.5 fl Normal 35.1-43.9 [facility] Comment on above: Performed By: #### L 500.4050, L501.2450, L100.0100 ####[facility] [address] [place], [address] WBC (Bld) [#/Vol] 12.1 10*3/uL High 4.4-11.0 [facility] Comment on above: Performed By: #### L 500.4050, L501.2450, L100.0100 ####[facility] [address] [place], [address] Chest 1 View (Portable)on Chest 1 View (Portable) [facility] Imaging Services [address] [place] [address] Chest 1 View (Portable) MR#: [id number] Acct: [id number] Name: PAT MEDINA Rep #: [id number] : 1980 F 44 From: Sandie Martinez nd, MD PCP: Dr. Maile Norman MD Status: PRE ER Study: Chest 1 View (Portable) Date of Exam: 12/16/24 Exam# [id number] Ordering Dr: Iain Reina DO PROCEDURE: CHEST 1 VIEW (PORTABLE) 12/16/2024 REASON FOR EXAM: SOB TECHNIQUE: Frontal view of the chest. COMPARISON: Chest radiograph 01/05/2022. FINDINGS: Hardware: None. Heart: The heart size is normal. Lungs: No focal consolidation, pleural effusion or pneumothorax. Bones: The bones are unremarkable. RAD/Chest 1 View (Portable) IMPRESSION: Negative Chest. Reading Location: [facility] CC: Dr. Maile Norman MD; Dr. Iain Reina DO Polisher Apprentice: Signed Normal [facility] Comprehensive Metabolic Prof ilon 12-16-2024 Albumin [Mass/Vol] 4.0 g/dL Normal 3.5-5.0 [facility] Comment on above: Performed By: #### L 500.4050, L501.2450, L100.0100 ####[facility] [address] [place], [address] Albumin/Globulin [Mass ratio] 1.6 {ratio} Normal 0.9-2.4 [facility] Comment on above: Performed By: #### L 500.4050, L501.2450, L100.0100 ####[facility] [address] [place], [address] ALK PHOS 61 U/L Normal 35-104 [facility] Comment on above: Performed By: #### L 500.4050, L501.2450, L100.0100 ####[facility] [address] [place], [address] ALT [Catalytic activity/Vol] 10 U/L Normal <=34 [facility] Comment on above: Performed By: #### L 500.4050, L501.2450, L100.0100 ####[facility] [address] [place], [address] AST [Catalytic activity/Vol] 15 U/L Normal <=31 [facility] Comment on above: Performed By: #### L 500.4050, L501.2450, L100.0100 ####[facility] [address] [place], [address] Bilirubin [Mass/Vol] 0.29 mg/dL Normal 0.00-1.30 [facility] Comment on above: Performed By: #### L 500.4050, L501.2450, L100.0100 ####[facility] [address] [place], [address] BUN/CRE 7.4 RATIO Low 10-20 [facility] Comment on above: Performed By: #### L 500.4050, L501.2450, L100.0100 ####[facility] [address] [place], [address] Calcium [Mass/Vol] 9.2 mg/dL Normal 7.6-11.0 [facility] Comment on above: Performed By: #### L 500.4050, L501.2450, L100.0100 ####[facility] [address] [place], [address] Chloride [Moles/Vol] 106 mmol/L Normal 98-108 [facility] Comment on above: Performed By: #### L 500.4050, L501.2450, L100.0100 ####[facility] [address] [place], [address] CO2 [Moles/Vol] 21.4 mmol/L Normal 21.0-32.0 [facility] Comment on above: Performed By: #### L 500.4050, L501.2450, L100.0100 ####[facility] [address] [place], [address] Creatinine [Mass/Vol] 0.75 mg/dL Normal 0.70-1.20 [facility] Comment on above: Performed By: #### L 500.4050, L501.2450, L100.0100 ####[facility] [address] [place], [address] ECRCL 87.46 ml/min Normal 50-250 [facility] Comment on above: Performed By: #### L 500.4050, L501.2450, L100.0100 ####[facility] [address] [place], [address] GAP 12 Normal 5-15 [facility] Comment on above: Performed By: #### L 500.4050, L501.2450, L100.0100 ####[facility] [address] [place], [address] GFR/1.73 sq M.predicted among non-blacks MDRD (S/P/Bld) [Vol rate/Area] 101 mL/min/{1.73_m2} Normal >60 [facility] Comment on above: Result Comment: mL/m in/1.73m2 CKD-EPI Creatinine Equation (2020) Performed By: #### L 500.4050, L501.2450, L100.0100 ####[facility] [address] [place], [address] Globulin (S) [Mass/Vol] 2.5 g/dL Normal 2.2-4.2 [facility] Comment on above: Performed By: #### L 500.4050, L501.2450, L100.0100 ####[facility] [address] [place], [address] Glucose [Mass/Vol] 115 mg/dL High 70-99 [facility] Comment on above: Performed By: #### L 500.4050, L501.2450, L100.0100 ####[facility] [address] [place], [address] Potassium [Moles/Vol] 3.8 mmol/L Normal 3.3-5.1 [facility] Comment on above: Performed By: #### L 500.4050, L501.2450, L100.0100 ####[facility] [address] [place], [address] Sodium [Moles/Vol] 139 mmol/L Normal 133-145 [facility] Comment on above: Performed By: #### L 500.4050, L501.2450, L100.0100 ####[facility] [address] [place], [address] T PROT 6.5 g/dL Normal 5.9-8.4 [facility] Comment on above: Performed By: #### L 500.4050, L501.2450, L100.0100 ####[facility] [address] [place], [address] Urea nitrogen [Mass/Vol] 6 mg/dL Normal 4-19 [facility] Comment on above: Performed By: #### L 500.4050, L501.2450, L100.0100 ####[facility] [address] [place], [address] Emergency Department Summary on 12-16-2024 Emergency Department Summary [facility] Medical Records Department [address] [place] [address] Emergency Department Summary 12/16/24 MR#: [id number] Acct: [id number] Name: PAT MEDINA Rep #: [id number] : 1980 44 From: Iain Reina DO PCP: Dr. Maile Norman MD Status:REG ER Location: ED HPI History of Present Illness Chief Complaint: Substance Abuse [facility] Medical History Substance abuse Congestive [...] device 10/09/23 Unknown History (BreatheRite MDI Spacer) albuterol sulfate 90 mcg/actuation 2 puff inhalation Q4H PRN PRN Unknown History aerosol inhaler wheezing alprazolam 0.5 mg tablet 0.5 mg PO BID PRN PRN anxiety 11/2512/04/24 History ondansetron HCl 4 mg tablet 4 mg PO TID PRN PRN nausea/vomitin g 12/06/24 12/06/24 History duloxetine 20 mg capsule,delayed 20 mg PO DAILY 12/16/24 Unknown Hi story release Allergy/AdvReac Type Severity Reaction Status Date / Time escitalopram (From Lexapro) Allergy Other Verified 12/16/24 11:57 lamotrigine (From Lamictal) Allergy Hives Verified 12/16/24 11:57 nitrofurantoin (From Allergy Unknown Verified 12/16/24 11:57 Macrobid) nitrofurantoin Allergy Unknown Verified 12/16/24 11:57 macrocrystalline (From Macrobid) codeine AdvReac Nausea Verified 12/16/24 11:57 Family History Mother Anxiety Hypertension High cholesterol [...] on occassion, does use ibuprofen as needed. EXAM Physical Exam Const Vital Signs: 12/16/24 11:57 12/16/24 13:34 Temperature 97.6 F L Temperature Source Oral Pulse Rate 92 71 Respiratory Rate 18 17 Blood Pressure 139/92 H 129/71 H Blood Pressure Mean 107 90 Pulse Ox 100 99 Oxygen Delivery Method Room Air [place] [facility] [place] Medical decision making narrative: HISTORY OF PRESENT ILLNESS: Chief complaint: Concern for opiate withdrawal 44-year-old female history of substance abuse, depression presents with concern she feels terrible. States that she think she is withdrawing from opiates again. She notes she was addicted to opiates for approximately 2 years and recently went through the ramp program for opiate withdrawal. States she was discharged on the (7 days ago). She states she has not used any opiates since 06 December and approximate 10 days ago she think she could be going to withdrawal. Show she felt okay day after she was discharged within start having symptoms of withdrawal including feeling shaky, nervous, having nausea. Denies vomiting or diarrhea. Denies any drug use. Denies any methadone use. Denies any headaches, chest pain, shortness of breath, abdominal pain, vomiting, vaginal bleeding or discharge REVIEW OF SYSTEMS: Pertinent positives: As per HPI Pertinent negatives: As per HPI PHYSICAL EXAM: Nursing triage notes reviewed, Vital [...] there is no tenderness, rigidity, rebound or guarding, no obvious peritoneal signs, no palpable pulsatile abdominal masses, no auscultated abdominal bruit : No CVAT Extremities: No edema Neuro: No new focal neurological deficits, cranial nerves II through (more content not included)... Normal [facility] Lipaseon 12-16-2024 Lipase [Catalytic activity/Vol] 40 U/L Normal 13-75 [facility] Comment on above: Result Comment: Padma gee note: LIPASE revised reference range effective 22. New Lipase methodology. Expected to produce lower values than the previous assay method. NEW Reference Range: 13 - 75 U/L Performed By: #### L 500.4050, L501.2450, L100.0100 ####[facility] [address] [place], [address] ,Urineon 12-16-2024 Beta HCG ( test) Ql (U) Negative Normal [facility] Comment on above: Result Comment: Very dilute urine specimens, as indicated by a low specific gravity, may not contain service center representative levels of hCG. If is still suspected, a first morning urine specimen should be collected 48 hours later and tested. Performed By: #### L 400.7600 ####[facility] [address] [place], [address] Urinalysis, Completeon 12-16 BACTERIA RARE Normal None Seen [facility] Comment on above: Order Comment: CANDIDO CTOR TO SPECIFY Performed By: #### L 400.0001 ####[facility] [address] [place], [address] EPI,SQUAMOUS 25-50 SEEN Normal 5-10 [facility] Comment on above: Order Comment: CANDIDO CTOR TO SPECIFY Performed By: #### L 400.0001 ####[facility] [address] [place], [address] Mucus Ql (Urine sed) 0 SEEN Normal [facility] Comment on above: Order Comment: CANDIDO CTOR TO SPECIFY Performed By: #### L 400.0001 ####[facility] [address] [place], [address] RBC 0 SEEN Normal 0-5 [facility] Comment on above: Order Comment: CANDIDO CTOR TO SPECIFY Performed By: #### L 400.0001 ####[facility] [address] [place], [address] WBC 0 SEEN Normal 0-5 [facility] Comment on above: Order Comment: COLLE CTOR TO SPECIFY Performed By: #### L 400.0001 ####[facility] [address] [place], [address] CNPNon 12-10-2024 CNPN Normal [facility] Discharge Instructionon 11-25 Discharge Instruction [facility] Medical Records Department [address] [place] [address] Instructions for Home/Discharge Instructions 12/09/24 1044 MR#: [id number] Acct: [id number] Name: PAT MEDINA Rep #: [id number] : 1980 44 From: Jorge Luis Ortega [...] Home, Self Care 12/09/24 1047 Jorge Luis Goodmanrkflory CC: Dr. Adelina Garcia DO; Dr. Maile Norman MD Signed Normal [facility] Alcohol, Blood (Medical)-Ser umon 12-06-2024 SERUM ETOH < 10.1 Normal <=10.0 [facility] Comment on above: Result Comment: This test is for medical purposes only. The legal definition of intoxication varies according to local law. Performed By: #### L 100.0100, L500.4050, L501.9100, L505.5000, L700.6800 ####[facility] [address] [place], [address] CBC W/Diff, Automatedon 11-25 Absolute Lymph 2.81 X10 3/uL Normal 0.83-4.51 [facility] Comment on above: Performed By: #### L 100.0100, L500.4050, L501.9100, L505.5000, L700.6800 ####[facility] [address] [place], [address] Absolute Neut 5.5 X10 3/uL Normal 2.0-7.7 [facility] Comment on above: Performed By: #### L 100.0100, L500.4050, L501.9100, L505.5000, L700.6800 ####[facility] [address] [place], [address] Basophils/100 WBC (Bld) 1.1 % High 0-1 [facility] Comment on above: Performed By: #### L 100.0100, L500.4050, L501.9100, L505.5000, L700.6800 ####[facility] [address] [place], [address] Eosinophils/100 WBC (Bld) 1.1 % Normal 0-5 [facility] Comment on above: Performed By: #### L 100.0100, L500.4050, L501.9100, L505.5000, L700.6800 ####[facility] [address] [place], [address] Erythrocyte distribution width (RBC) [Ratio] 12.3 % Normal 11.6-14.6 [facility] Comment on above: Performed By: #### L 100.0100, L500.4050, L501.9100, L505.5000, L700.6800 ####[facility] [address] [place], [address] Hematocrit (Bld) [Volume fraction] 38.5 % Normal 37-47 [facility] Comment on above: Performed By: #### L 100.0100, L500.4050, L501.9100, L505.5000, L700.6800 ####[facility] [address] [place], [address] Hemoglobin (Bld) [Mass/Vol] 13.5 g/dL Normal 12.0-15.0 [facility] Comment on above: Performed By: #### L 100.0100, L500.4050, L501.9100, L505.5000, L700.6800 ####[facility] [address] [place], [address] IG% 0.200 Normal 0.0-0.9 [facility] Comment on above: Result Comment: IG% - Immature Granulocytes (promyelocytes, myelocytes and metamyelocytes) > 1% indicates that a LEFT SHIFT is Present. Performed By: #### L 100.0100, L500.4050, L501.9100, L505.5000, L700.6800 ####[facility] [address] [place], [address] Lymphocytes/100 WBC (Bld) 30.5 % Normal 19-41 [facility] Comment on above: Performed By: #### L 100.0100, L500.4050, L501.9100, L505.5000, L700.6800 ####[facility] [address] [place], [address] MCH (RBC) [Entitic mass] 31.9 pg Normal 27.0-32.0 [facility] Comment on above: Performed By: #### L 100.0100, L500.4050, L501.9100, L505.5000, L700.6800 ####[facility] [address] [place], [address] MCHC (RBC) [Mass/Vol] 35.1 g/dL Normal 32-36 [facility] Comment on above: Performed By: #### L 100.0100, L500.4050, L501.9100, L505.5000, L700.6800 ####[facility] [address] [place], [address] MCV (RBC) [Entitic vol] 91.0 fL Normal 81-99 [facility] Comment on above: Performed By: #### L 100.0100, L500.4050, L501.9100, L505.5000, L700.6800 ####[facility] [address] [place], [address] Monocytes/100 WBC (Bld) 7.5 % Normal 0-10 [facility] Comment on above: Performed By: #### L 100.0100, L500.4050, L501.9100, L505.5000, L700.6800 ####[facility] [address] [place], [address] Neutrophils/100 WBC (Bld) 59.6 % Normal 47-70 [facility] Comment on above: Performed By: #### L 100.0100, L500.4050, L501.9100, L505.5000, L700.6800 ####[facility] [address] [place], [address] Nucleated RBC (Bld) [#/Vol] 0 10*3/uL Normal 0-5 [facility] Comment on above: Performed By: #### L 100.0100, L500.4050, L501.9100, L505.5000, L700.6800 ####[facility] [address] [place], [address] Platelet mean volume (Bld) [Entitic vol] 10.0 fL Normal 6.2-12.0 [facility] Comment on above: Performed By: #### L 100.0100, L500.4050, L501.9100, L505.5000, L700.6800 ####[facility] [address] [place], [address] Platelets (Bld) [#/Vol] 273 10*3/uL Normal 150-450 [facility] Comment on above: Performed By: #### L 100.0100, L500.4050, L501.9100, L505.5000, L700.6800 ####[facility] [address] [place], [address] RBC (Bld) [#/Vol] 4.23 10*6/uL Normal 4.2-5.4 [facility] Comment on above: Performed By: #### L 100.0100, L500.4050, L501.9100, L505.5000, L700.6800 ####[facility] [address] [place], [address] RDW SD 40.9 fl Normal 35.1-43.9 [facility] Comment on above: Performed By: #### L 100.0100, L500.4050, L501.9100, L505.5000, L700.6800 ####[facility] [address] [place], [address] WBC (Bld) [#/Vol] 9.2 10*3/uL Normal 4.4-11.0 [facility] Comment on above: Performed By: #### L 100.0100, L500.4050, L501.9100, L505.5000, L700.6800 ####[facility] [address] [place], [address] Comprehensive Metabolic Prof ilon 12-06-2024 Albumin [Mass/Vol] 3.8 g/dL Normal 3.5-5.0 [facility] Comment on above: Performed By: #### L 100.0100, L500.4050, L501.9100, L505.5000, L700.6800 ####[facility] [address] [place], [address] Albumin/Globulin [Mass ratio] 1.6 {ratio} Normal 0.9-2.4 [facility] Comment on above: Performed By: #### L 100.0100, L500.4050, L501.9100, L505.5000, L700.6800 ####[facility] [address] [place], [address] ALK PHOS 62 U/L Normal 35-104 [facility] Comment on above: Performed By: #### L 100.0100, L500.4050, L501.9100, L505.5000, L700.6800 ####[facility] [address] [place], [address] ALT [Catalytic activity/Vol] 11 U/L Normal <=34 [facility] Comment on above: Performed By: #### L 100.0100, L500.4050, L501.9100, L505.5000, L700.6800 ####[facility] [address] [place], [address] AST [Catalytic activity/Vol] 22 U/L Normal <=31 [facility] Comment on above: Performed By: #### L 100.0100, L500.4050, L501.9100, L505.5000, L700.6800 ####[facility] [address] [place], [address] Bilirubin [Mass/Vol] 0.19 mg/dL Normal 0.00-1.30 [facility] Comment on above: Performed By: #### L 100.0100, L500.4050, L501.9100, L505.5000, L700.6800 ####[facility] [address] [place], [address] BUN/CRE 4.6 RATIO Low 10-20 [facility] Comment on above: Performed By: #### L 100.0100, L500.4050, L501.9100, L505.5000, L700.6800 ####[facility] [address] [place], [address] Calcium [Mass/Vol] 8.8 mg/dL Normal 7.6-11.0 [facility] Comment on above: Performed By: #### L 100.0100, L500.4050, L501.9100, L505.5000, L700.6800 ####[facility] [address] [place], [address] Chloride [Moles/Vol] 102 mmol/L Normal 98-108 [facility] Comment on above: Performed By: #### L 100.0100, L500.4050, L501.9100, L505.5000, L700.6800 ####[facility] [address] [place], [address] CO2 [Moles/Vol] 24.2 mmol/L Normal 21.0-32.0 [facility] Comment on above: Performed By: #### L 100.0100, L500.4050, L501.9100, L505.5000, L700.6800 ####[facility] [address] [place], [address] Creatinine [Mass/Vol] 0.64 mg/dL Low 0.70-1.20 [facility] Comment on above: Performed By: #### L 100.0100, L500.4050, L501.9100, L505.5000, L700.6800 ####[facility] [address] [place], [address] ECRCL 101.21 ml/min Normal 50-250 [facility] Comment on above: Performed By: #### L 100.0100, L500.4050, L501.9100, L505.5000, L700.6800 ####[facility] [address] [place], [address] GAP 11 Normal 5-15 [facility] Comment on above: Performed By: #### L 100.0100, L500.4050, L501.9100, L505.5000, L700.6800 ####[facility] [address] [place], [address] GFR/1.73 sq M.predicted among non-blacks MDRD (S/P/Bld) [Vol rate/Area] 113 mL/min/{1.73_m2} Normal >60 [facility] Comment on above: Result Comment: mL/m in/1.73m2 CKD-EPI Creatinine Equation (2020) Performed By: #### L 100.0100, L500.4050, L501.9100, L505.5000, L700.6800 ####[facility] [address] [place], [address] Globulin (S) [Mass/Vol] 2.4 g/dL Normal 2.2-4.2 [facility] Comment on above: Performed By: #### L 100.0100, L500.4050, L501.9100, L505.5000, L700.6800 ####[facility] [address] [place], [address] Glucose [Mass/Vol] 117 mg/dL High 70-99 [facility] Comment on above: Performed By: #### L 100.0100, L500.4050, L501.9100, L505.5000, L700.6800 ####[facility] [address] [place], [address] Potassium [Moles/Vol] 3.7 mmol/L Normal 3.3-5.1 [facility] Comment on above: Performed By: #### L 100.0100, L500.4050, L501.9100, L505.5000, L700.6800 ####[facility] [address] [place], [address] Sodium [Moles/Vol] 137 mmol/L Normal 133-145 [facility] Comment on above: Performed By: #### L 100.0100, L500.4050, L501.9100, L505.5000, L700.6800 ####[facility] [address] [place], [address] T PROT 6.2 g/dL Normal 5.9-8.4 [facility] Comment on above: Performed By: #### L 100.0100, L500.4050, L501.9100, L505.5000, L700.6800 ####[facility] [address] [place], [address] Urea nitrogen [Mass/Vol] 3 mg/dL Low 4-19 [facility] Comment on above: Performed By: #### L 100.0100, L500.4050, L501.9100, L505.5000, L700.6800 ####[facility] [address] [place], [address] Emergency Department Summary on 12-06-2024 Emergency Department Summary [facility] Medical Records Department [address] [place] [address] Emergency Department Summary 12/06/24 MR#: [id number] Acct: [id number] Name: PAT MEDINA Rep #: [id number] : 1980 44 From: Janet NASH PCP: Dr. Maile Norman MD Status:ADM IN Location: MS3 AQ108-6 HPI History of Present Illness Chief Complaint: [...] not abuse these. She denies alcohol use. [facility] Medical History Substance abuse Congestive [...] and h (more content not included)... Normal [facility] H AND P Exam - Hospitaliston 12-06-2024 H&P Exam - Hospitalist [facility] Medical Records Department [address] [place] [address] H P Exam - Hospitalist 12/06/242114 MR#: [id number] Acct: [id number] Name: PAT MEDINA Rep #: [id number] : 1980 44 From: Adelina Garcia DO PCP: Dr. Maile Norman MD Status:ADM IN [facility] - General General Date of Admission: 12/06/24 Date of Service: 12/06/24 Chief Complaint: Opiate detox HPI Narrative PAT MEDINA, is a 44 F who presented to the emergency department at [facility] on 12/06/2024 requesting opiate detox. Patient reports [...] negative She will be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 Platelets (Bld) [#/Vol] 246 10*3/uL Normal 150-450 [facility] Comment on above: Performed By: #### L 100.0100, L501.2450, L503.6005, L500.2500, L500.3400 ####[facility] [address] [place], [address] RBC (Bld) [#/Vol] 3.99 10*6/uL Low 4.2-5.4 [facility] Comment on above: Performed By: #### L 100.0100, L501.2450, L503.6005, L500.2500, L500.3400 ####[facility] [address] [place], [address] RDW SD 43.0 fl Normal 35.1-43.9 [facility] Comment on above: Performed By: #### L 100.0100, L501.2450, L503.6005, L500.2500, L500.3400 ####[facility] [address] [place], [address] WBC (Bld) [#/Vol] 9.3 10*3/uL Normal 4.4-11.0 [facility] Comment on above: Performed By: #### L 100.0100, L501.2450, L503.6005, L500.2500, L500.3400 ####[facility] [address] [place], [address] Emergency Department Summary on 08-28-2024 Emergency Department Summary [facility] Medical Records Department [address] [place] [address] Emergency Department Summary 08/28/24 MR#: [id number] Acct: [id number] Name: PAT MEDINA Rep #: [id number] : 1980 44 From: Reny Painter DO [...] denies any alcohol or other drug use. [facility] Medical History Marijuana use Right [...] Temperature Source (more content not included)... Normal [facility] Lactic Acidon 08-28-2024 Lactate [Moles/Vol] 1.1 mmol/L Normal 0.0-2.0 [facility] Comment on above: Order Comment: Y Performed By: #### L 100.0100, L501.2450, L503.6005, L500.2500, L500.3400 ####[facility] [address] [place], [address] Lipaseon 08-28-2024 Lipase [Catalytic activity/Vol] 31 U/L Normal 13-75 [facility] Comment on above: Result Comment: Padma gee note: LIPASE revised reference range effective 22. New Lipase methodology. Expected to produce lower values than the previous assay method. NEW Reference Range: 13 - 75 U/L Performed By: #### L 100.0100, L501.2450, L503.6005, L500.2500, L500.3400 ####[facility] [address] [place], [address] Liver Profileon 08-28-2024 Albumin [Mass/Vol] 3.5 g/dL Normal 3.5-5.0 [facility] Comment on above: Performed By: #### L 100.0100, L501.2450, L503.6005, L500.2500, L500.3400 ####[facility] [address] [place], [address] ALK PHOS 57 U/L Normal 35-104 [facility] Comment on above: Performed By: #### L 100.0100, L501.2450, L503.6005, L500.2500, L500.3400 ####[facility] [address] [place], [address] ALT [Catalytic activity/Vol] 10 U/L Normal <=34 [facility] Comment on above: Performed By: #### L 100.0100, L501.2450, L503.6005, L500.2500, L500.3400 ####[facility] [address] [place], [address] AST [Catalytic activity/Vol] 26 U/L Normal <=31 [facility] Comment on above: Performed By: #### L 100.0100, L501.2450, L503.6005, L500.2500, L500.3400 ####[facility] [address] [place], [address] D BILI < 0.08 Normal 0.00-0.30 [facility] Comment on above: Performed By: #### L 100.0100, L501.2450, L503.6005, L500.2500, L500.3400 ####[facility] [address] [place], [address] Globulin (S) [Mass/Vol] 2.6 g/dL Normal 2.2-4.2 [facility] Comment on above: Performed By: #### L 100.0100, L501.2450, L503.6005, L500.2500, L500.3400 ####[facility] [address] [place], [address] T BILI < 0.15 Normal 0.00-1.30 [facility] Comment on above: Performed By: #### L 100.0100, L501.2450, L503.6005, L500.2500, L500.3400 ####[facility] [address] [place], [address] T PROT 6.0 g/dL Normal 5.9-8.4 [facility] Comment on above: Performed By: #### L 100.0100, L501.2450, L503.6005, L500.2500, L500.3400 ####[facility] [address] [place], [address] Urinalysis, Completeon 08-28 BACTERIA Normal None Seen [facility] Comment on above: Order Comment: CLEAN CATCH Result Comment: PT D EP ER ED.M Performed By: #### L 400.0001 ####[facility] [address] [place], [address] BILIRUBIN URINE Normal Negative [facility] Comment on above: Order Comment: CLEAN CATCH Result Comment: PT D EP ER ED.M Performed By: #### L 400.0001 ####[facility] [address] [place], [address] Clarity (U) Normal Clear [facility] Comment on above: Order Comment: CLEAN CATCH Result Comment: PT D EP ER ED.M Performed By: #### L 400.0001 ####[facility] [address] [place], [address] Color (U) Normal Yellow [facility] Comment on above: Order Comment: CLEAN CATCH Result Comment: PT D EP ER ED.M Performed By: #### L 400.0001 ####[facility] [address] [place], [address] EPI,SQUAMOUS Normal 5-10 [facility] Comment on above: Order Comment: CLEAN CATCH Result Comment: PT D EP ER ED.M Performed By: #### L 400.0001 ####[facility] [address] [place], [address] GLUCOSE, UR Normal Normal [facility] Comment on above: Order Comment: CLEAN CATCH Result Comment: PT D EP ER ED.M Performed By: #### L 400.0001 ####[facility] [address] [place], [address] KETONE UR Normal Negative [facility] Comment on above: Order Comment: CLEAN CATCH Result Comment: PT D EP ER ED.M Performed By: #### L 400.0001 ####[facility] [address] [place], [address] LEUK ESTERASE Normal Negative [facility] Comment on above: Order Comment: CLEAN CATCH Result Comment: PT D EP ER ED.M Performed By: #### L 400.0001 ####[facility] [address] [place], [address] Mucus Ql (Urine sed) Normal [facility] Comment on above: Order Comment: CLEAN CATCH Result Comment: PT D EP ER ED.M Performed By: #### L 400.0001 ####[facility] [address] [place], [address] Nitrite Ql (U) Normal Negative [facility] Comment on above: Order Comment: CLEAN CATCH Result Comment: PT D EP ER ED.M Performed By: #### L 400.0001 ####[facility] [address] [place], [address] OCCULT BLOOD-UR Normal Negative [facility] Comment on above: Order Comment: CLEAN CATCH Result Comment: PT D EP ER ED.M Performed By: #### L 400.0001 ####[facility] [address] [place], [address] pH UR Normal 5.0 - 8.0 [facility] Comment on above: Order Comment: CLEAN CATCH Result Comment: PT D EP ER ED.M Performed By: #### L 400.0001 ####[facility] [address] [place], [address] PROT DIPSTX Normal Negative [facility] Comment on above: Order Comment: CLEAN CATCH Result Comment: PT D EP ER ED.M Performed By: #### L 400.0001 ####[facility] [address] [place], [address] RBC Normal 0-5 [facility] Comment on above: Order Comment: CLEAN CATCH Result Comment: PT D EP ER ED.M Performed By: #### L 400.0001 ####[facility] [address] [place], [address] SP.GR. DIPSTX Normal 1.002-1.030 [facility] Comment on above: Order Comment: CLEAN CATCH Result Comment: PT D EP ER ED.M Performed By: #### L 400.0001 ####[facility] [address] [place], [address] UR Preservative Normal [facility] Comment on above: Order Comment: CLEAN CATCH Result Comment: PT D EP ER ED.M Performed By: #### L 400.0001 ####[facility] [address] [place], [address] UROBILI Normal Normal [facility] Comment on above: Order Comment: CLEAN CATCH Result Comment: PT D EP ER ED.M Performed By: #### L 400.0001 ####[facility] [address] [place], [address] WBC Normal 0-5 [facility] Comment on above: Order Comment: CLEAN CATCH Result Comment: PT D EP ER ED.M Performed By: #### L 400.0001 ####[facility] [address] [place], [address] Abdomen/Pelvis W IV Cont ONL Yon 08-26-2024 Abdomen/Pelvis W IV Cont ONLY [facility] Imaging Services [address] [place] [address] Abdomen/Pelvis W IV Cont ONLY MR#: [id number] Acct: [id number] Name: PAT MEDINA Rep #: [id number] : 1980 F 44 From: Navi Graham MD PCP: Dr. Maile Norman MD Status: [facility] ER Study: Abdomen/Pelvis W IV Cont ONLY Date of Exam: Exam# [id number] Ordering Dr: Navi Cruz POLISHER EYEGLASS FRAMES-C PROCEDURE: ABDOMEN/PELVIS W IV CONT ONLY REASON [...] use of iterative reconstruction technique). Reading Location: RMEIGIO CC: LISSA Cruz; Dr. Maile Norman MD Polisher Apprentice: Signed Normal [facility] CBC W/Diff, Automatedon 030 Absolute Lymph 1.12 X10 3/uL Normal 0.83-4.51 [facility] Comment on above: Performed By: #### L 100.0100, L501.2450, L500.4050 ####[facility] [address] [place], [address] Absolute Neut 19.4 X10 3/uL High 2.0-7.7 [facility] Comment on above: Performed By: #### L 100.0100, L501.2450, L500.4050 ####[facility] [address] [place], [address] Basophils/100 WBC (Bld) 0.3 % Normal 0-1 [facility] Comment on above: Performed By: #### L 100.0100, L501.2450, L500.4050 ####[facility] [address] [place], [address] Eosinophils/100 WBC (Bld) 0.3 % Normal 0-5 [facility] Comment on above: Performed By: #### L 100.0100, L501.2450, L500.4050 ####[facility] [address] [place], [address] Erythrocyte distribution width (RBC) [Ratio] 12.7 % Normal 11.6-14.6 [facility] Comment on above: Performed By: #### L 100.0100, L501.2450, L500.4050 ####[facility] [address] [place], [address] Hematocrit (Bld) [Volume fraction] 50.4 % High 37-47 [facility] Comment on above: Performed By: #### L 100.0100, L501.2450, L500.4050 ####[facility] [address] [place], [address] Hemoglobin (Bld) [Mass/Vol] 17.4 g/dL High 12.0-15.0 [facility] Comment on above: Performed By: #### L 100.0100, L501.2450, L500.4050 ####[facility] [address] [place], [address] IG% 0.400 Normal 0.0-0.9 [facility] Comment on above: Result Comment: IG% - Immature Granulocytes (promyelocytes, myelocytes and metamyelocytes) > 1% indicates that a LEFT SHIFT is Present. Performed By: #### L 100.0100, L501.2450, L500.4050 ####[facility] [address] [place], [address] Lymphocytes/100 WBC (Bld) 5.2 % Low 19-41 [facility] Comment on above: Performed By: #### L 100.0100, L501.2450, L500.4050 ####[facility] [address] [place], [address] MCH (RBC) [Entitic mass] 32.3 pg High 27.0-32.0 [facility] Comment on above: Performed By: #### L 100.0100, L501.2450, L500.4050 ####[facility] [address] [place], [address] MCHC (RBC) [Mass/Vol] 34.5 g/dL Normal 32-36 [facility] Comment on above: Performed By: #### L 100.0100, L501.2450, L500.4050 ####[facility] [address] [place], [address] MCV (RBC) [Entitic vol] 93.7 fL Normal 81-99 [facility] Comment on above: Performed By: #### L 100.0100, L501.2450, L500.4050 ####[facility] [address] [place], [address] Monocytes/100 WBC (Bld) 3.3 % Normal 0-10 [facility] Comment on above: Performed By: #### L 100.0100, L501.2450, L500.4050 ####[facility] [address] [place], [address] Neutrophils/100 WBC (Bld) 90.5 % High 47-70 [facility] Comment on above: Performed By: #### L 100.0100, L501.2450, L500.4050 ####[facility] [address] [place], [address] Nucleated RBC (Bld) [#/Vol] 0 10*3/uL Normal 0-5 [facility] Comment on above: Performed By: #### L 100.0100, L501.2450, L500.4050 ####[facility] [address] [place], [address] Platelet mean volume (Bld) [Entitic vol] 9.4 fL Normal 6.2-12.0 [facility] Comment on above: Performed By: #### L 100.0100, L501.2450, L500.4050 ####[facility] [address] [place], [address] Platelets (Bld) [#/Vol] 414 10*3/uL Normal 150-450 [facility] Comment on above: Performed By: #### L 100.0100, L501.2450, L500.4050 ####[facility] [address] [place], [address] RBC (Bld) [#/Vol] 5.38 10*6/uL Normal 4.2-5.4 [facility] Comment on above: Performed By: #### L 100.0100, L501.2450, L500.4050 ####[facility] [address] [place], [address] RDW SD 43.9 fl Normal 35.1-43.9 [facility] Comment on above: Performed By: #### L 100.0100, L501.2450, L500.4050 ####[facility] [address] [place], [address] WBC (Bld) [#/Vol] 21.5 10*3/uL High 4.4-11.0 [facility] Comment on above: Performed By: #### L 100.0100, L501.2450, L500.4050 ####[facility] [address] [place], [address] Comprehensive Metabolic Prof [facility] 08-26-2024 Albumin [Mass/Vol] 5.0 g/dL Normal 3.5-5.0 [facility] Comment on above: Performed By: #### L 100.0100, L501.2450, L500.4050 ####[facility] [address] [place], [address] Albumin/Globulin [Mass ratio] 1.5 {ratio} Normal 0.9-2.4 [facility] Comment on above: Performed By: #### L 100.0100, L501.2450, L500.4050 ####[facility] [address] [place], [address] ALK PHOS 83 U/L Normal 35-104 [facility] Comment on above: Performed By: #### L 100.0100, L501.2450, L500.4050 ####[facility] [address] [place], [address] ALT [Catalytic activity/Vol] 11 U/L Normal <=34 [facility] Comment on above: Performed By: #### L 100.0100, L501.2450, L500.4050 ####[facility] [address] [place], [address] Anion gap [Moles/Vol] 15 mmol/L Normal 5-15 [facility] Comment on above: Performed By: #### L 100.0100, L501.2450, L500.4050 ####[facility] [address] [place], [address] AST [Catalytic activity/Vol] 25 U/L Normal <=31 [facility] Comment on above: Result Comment: Hemo lysis present, Results??could be affected. ?? Performed By: #### L 100.0100, L501.2450, L500.4050 ####[facility] [address] [place], [address] Bilirubin [Mass/Vol] 0.50 mg/dL Normal 0.00-1.30 [facility] Comment on above: Performed By: #### L 100.0100, L501.2450, L500.4050 ####[facility] [address] [place], [address] BUN/CRE 9.2 RATIO Low 10-20 [facility] Comment on above: Performed By: #### L 100.0100, L501.2450, L500.4050 ####[facility] [address] [place], [address] Calcium [Mass/Vol] 9.4 mg/dL Normal 7.6-11.0 [facility] Comment on above: Performed By: #### L 100.0100, L501.2450, L500.4050 ####[facility] [address] [place], [address] Chloride [Moles/Vol] 104 mmol/L Normal 96-108 [facility] Comment on above: Performed By: #### L 100.0100, L501.2450, L500.4050 ####[facility] [address] [place], [address] CO2 [Moles/Vol] 25.8 mmol/L Normal 22.0-29.0 [facility] Comment on above: Performed By: #### L 100.0100, L501.2450, L500.4050 ####[facility] [address] [place], [address] Creatinine [Mass/Vol] 0.93 mg/dL Normal 0.70-1.20 [facility] Comment on above: Performed By: #### L 100.0100, L501.2450, L500.4050 ####[facility] [address] [place], [address] ECRCL 70.14 ml/min Normal 50-250 [facility] Comment on above: Performed By: #### L 100.0100, L501.2450, L500.4050 ####[facility] [address] [place], [address] GFR/1.73 sq M.predicted among non-blacks MDRD (S/P/Bld) [Vol rate/Area] 79 mL/min/{1.73_m2} Normal >60 [facility] Comment on above: Result Comment: mL/m in/1.73m2 CKD-EPI Creatinine Equation (2020) Performed By: #### L 100.0100, L501.2450, L500.4050 ####[facility] [address] [place], [address] Globulin (S) [Mass/Vol] 3.3 g/dL Normal 2.2-4.2 [facility] Comment on above: Performed By: #### L 100.0100, L501.2450, L500.4050 ####[facility] [address] [place], [address] Glucose [Mass/Vol] 129 mg/dL High 70-99 [facility] Comment on above: Performed By: #### L 100.0100, L501.2450, L500.4050 ####[facility] [address] [place], [address] Potassium [Moles/Vol] 3.9 mmol/L Normal 3.3-5.1 [facility] Comment on above: Result Comment: Hemo lysis present, Results??could be affected. ?? Performed By: #### L 100.0100, L501.2450, L500.4050 ####[facility] [address] [place], [address] Sodium [Moles/Vol] 145 mmol/L Normal 133-145 [facility] Comment on above: Performed By: #### L 100.0100, L501.2450, L500.4050 ####[facility] [address] [place], [address] T PROT 8.3 g/dL Normal 5.9-8.4 [facility] Comment on above: Performed By: #### L 100.0100, L501.2450, L500.4050 ####[facility] [address] [place], [address] Urea nitrogen [Mass/Vol] 9 mg/dL Normal 4-19 [facility] Comment on above: Performed By: #### L 100.0100, L501.2450, L500.4050 ####[facility] [address] [place], [address] Emergency Department Summary on 08-26-2024 Emergency Department Summary [facility] Medical Records Department [address] [place] [address] Emergency Department Summary 08/26/24 MR#: [id number] Acct: [id number] Name: PAT MEDINA Rep #: [id number] : 1980 44 From: Xavi Biggs MD [...] was several years ago. Here for evaluation. [facility] Medical History Marijuana use Right [...] auscultation bilaterally. (more content not included)... Normal [facility] Lipaseon 08-26-2024 Lipase [Catalytic activity/Vol] 79 U/L High 13-75 [facility] Comment on above: Result Comment: Padma gee note: LIPASE revised reference range effective 22. New Lipase methodology. Expected to produce lower values than the previous assay method. NEW Reference Range: 13 - 75 U/L Performed By: #### L 100.0100, L501.2450, L500.4050 ####[facility] [address] [place], [address] M100.678on 08-26-2024 M100.678 Pending SARS-CoV-2 (COVID 19) Negative INFLUENZA A Negative INFLUENZA B Negative RSV PCR Negative Normal [facility] Comment on above: Performed By: #### M 100.678 ####[facility] [address] [place], [place], [address] ,Serum,hCG Quali.on 08-26-2024 HCG, SERUM QUAL Negative Normal [facility] Comment on above: Performed By: #### L 700.6800 ####[facility] [address] [place], [address] Urinalysis, Completeon 08-26 AMORPHOUS 1+ URATE Normal [facility] Comment on above: Order Comment: COLLE CTOR TO SPECIFY Performed By: #### L 400.0001 ####[facility] [address] [place], [address] EPI,SQUAMOUS 0-5 SEEN Normal 5-10 [facility] Comment on above: Order Comment: COLLE CTOR TO SPECIFY Performed By: #### L 400.0001 ####[facility] [address] [place], [address] RBC 0-5 SEEN Normal 0-5 [facility] Comment on above: Order Comment: COLLE CTOR TO SPECIFY Performed By: #### L 400.0001 ####[facility] [address] [place], [address] WBC 0-5 SEEN Normal 0-5 [facility] Comment on above: Order Comment: COLLE CTOR TO SPECIFY Performed By: #### L 400.0001 ####[facility] [address] [place], [address] BACTERIA 0 SEEN Normal None Seen [facility] Comment on above: Order Comment: CANDIDO CTOR TO SPECIFY Performed By: #### L 400.0001 ####[facility] [address] [place], [address] Mucus Ql (Urine sed) 0 SEEN Normal [facility] Comment on above: Order Comment: COLLE CTOR TO SPECIFY Performed By: #### L 400.0001 ####[facility] [address] [place], [address] CNPNon 08-18-2024 CNPN Normal [facility] Plastic Surgery Visit Report on 08-14-2024 Plastic Surgery Visit Report [facility] Plastic Reconstructive Surgery [address] [place] [address] OFFICE VISIT Date of Service: 08/14/24 MR#: [id number] Acct: [id number] Name: PAT MEDINA Rep #: [id number] : 1980 Provider: Dr. Constanza esposito MD Age/Sex: 44/F Location: [facility] Status: Signed Intake Vital Signs 07/20/24 21:43 [...] Foreign body reaction of the skin L92.3 [facility] Medical History Marijuana use Right rotator [...] MD Cosigner Signature: Date (if applicable) CC: Normal [facility] CNPNon 08-08-2024 CNPN Normal [facility] Large Joint Arthro/Inj: R sh oulder [...] the patient voiced understanding of these instructions. [facility] CNOVon 07-31-2024 CNOV Normal [facility] CNOVon 07-27-2024 CNOV Normal [facility] Emergency Department Summary on 07-20-2024 Emergency Department Summary [facility] Medical Records Department [address] [place] [address] Emergency Department Summary 07/20/24 MR#: [id number] Acct: [id number] Name: PAT MEDINA Rep #: [id number] : 1980 44 From: Cesar Marroquin DO PCP: Dr. Maile Norman MD Status:[facility] ER Location: ED HPI History of Present [...] days. Therefore since she has been taking prhh-mot-jgxiqbv medication as well as her prescription medication without symptom improvement she presents for pain control. [facility] Medical History Marijuana use Right [...] intact; AIN/ (more content not included)... Normal [facility] Discharge Instructionon 06-28 Discharge Instruction [facility] Medical Records Department [address] [place] [address] Instructions for Home/Discharge Instructions 07/19/24 1251 MR#: [id number] Acct: [id number] Name: PAT MEDINA Rep #: [id number] : 1980 44 From: Constanza Cordova MD PCP: Dr. Maile Norman MD Status:REG [place] Discharge Instructions Dressing / Incision Additional Dressing/Incision [...] Care Provider: Maile Norman Instructions Print Language: Citizen Of [place] Discharge Orders/Prescriptions Prescriptions: New cephalexin 500 mg [...] MD CC: Dr. Maile Norman MD Signed [facility] MR/POSTOP.[facility] 07-19-2024 MR/POSTOP.[facility] Medical Records Department [address] [place] [address] Anesthesia Postop Eval I 07/19/24 1257 MR#: [id number] Acct: [id number] Name: PAT MEDINA Rep #: [id number] : 1980 44 From: Trinity Wright CRNA PCP: Dr. Maile Norman MD Status:REG SDC Y Race: C Location: [place] [address] Anesthesia: Postop Eval I Current Vital Signs [...] completed: Yes 07/19/24 1258 Date Trinity Wright STRAW HAT PRESSER Cosigner Signature: Date CC: Signed Normal [facility] MR/HISTMNIG1wc 07-19-2024 [facility] Medical Records Department [address] [place] [address] Anesthesia Postop Eval II 07/19/24 1914 MR#: [id number] Acct: [id number] Name: PAT MEDINA Rep #: [id number] : 1980 44 From: Samy Rae MD PCP: Dr. Maile Norman MD Status:[facility] Y Race: C Location: [place] Anesthesia Postop Eval I Sum Postop Eval Completion status Anesthesia document: Postop Eval 1 completed: Yes Anesthesia Postop Eval I Summary Anesthesia Postop Eval I Summary: Anesthesia Postop Eval I: Assessment Summary Airway patent Yes 07/19/24 12:58 STRAW HAT PRESSER.JSWI Spontaneous unlabored Yes 07/19/24 12:58 STRAW HAT PRESSER.JSWI respirations Mental status Awake 07/19/24 12:58 STRAW HAT PRESSER.JSWI nausea No 07/19/24 12:58 STRAW HAT PRESSER.JSWI Vomiting No 07/19/24 12:58 STRAW HAT PRESSER.JSWI Anesthesia Postop Eval I: Fluid Summary Crystalloid volume administer 1,200 07/19/24 12:58 STRAW HAT PRESSER.JSWI (ml) Colloids volume administered ( ml) Blood Product volume administered (ml) Total IV fluid infused 1,200 07/19/24 12:58 STRAW HAT PRESSER.JSWI Anesthesia Postop Eval I: Summary Notes Anesthesia Complication No 07/19/24 12:58 STRAW HAT PRESSER.JSWI Anesthesia Complication Comment: Post-operative progress note Anesthesia: Postop Eval II Evaluation Mental status: Awake and Calm Pain Level: 1 nausea: No Vomiting: No Complications Anesthesia Complication: No 07/19/24 1914 Date Samy Zhaoignjazz Signature: Date CC: Signed Normal [facility] Operative Reporton 5 Operative Report [facility] Medical Records Department [address] [place] [address] Operative Report 07/19/24 1254 MR#: [id number] Acct: [id number] Name: PAT MEDINA Rep #: [id number] : 1980 44 From: Constanza Cordova MD PCP: Dr. Maile Norman MD Status:REG [place] Location: [place] [address] Problems Associated Problem List Diagnoses (1) Neoplasm of uncertain behavior of connective and other soft tissue: Operative Report (Standard) Operative Information Date of Procedure: 07/19/24 Pre-Operative Diagnosis: Subcutaneous cyst left forearm Post-Operative Diagnosis: Same Surgery/Procedure Performed: Excision cyst left forearm (3.0 cm) lofter: No Type of Anesthesia: General RN Documented [...] Documentation VTE Mechan Device Prophylaxis: SCD's 07/19/24 1258 Cosigner Signature (if applicable): CC: Dr. Maile Norman MD; Dr. Constanza Cordova MD Signed Normal [facility] Surgery Specimen Level IIIon 07-19-2024 Surgery Specimen Level III -------- Patient Age/Sex Location Account Attending Physician -------- PAT MEDINA 44/F [place] [id number] Dr. Constanza Cordova MD -------- Specimen: [id number] Received: 07/19/24 Status: JEAN Bro Num: [id number] Spec Type: Cyst Subm Dr: Dr. Constanza [...] sectioned and submitted entirely in one cassette. [facility] 07/19/2024 TC:2 CPT:67581 -------- Patient Age/Sex Location Account Attending Physician -------- PAT MEDINA 44/F [place] [id number] Dr. Constanza Cordova MD -------- Signed (signature on file) Dr. Dusty Armstrong MD 07/20/24 1244 -------- Normal [facility] Comment on above: Performed By: #### P SUIII ####[facility] [address] [place], [address] CNPNon 07-16-2024 CNPN Normal [facility] CBC W Auto Differential pane l (Bld)on 07-13-2024 Basophils (Bld) [#/Vol] 0.10 10*3/uL N[facility] Basophils/100 WBC (Bld) 1.0 % [facility] Differential cell count method Nom (Bld) Auto [facility] Eosinophils (Bld) [#/Vol] 0.27 10*3/uL [facility] Eosinophils/100 WBC (Bld) 2.7 % [facility] Erythrocyte distribution width (RBC) [Ratio] 12.2 % 11.5 - 15.0 % [facility] Hematocrit (Bld) [Volume fraction] 41.9 % 36.0 - 46.0 % [facility] Hemoglobin (Bld) [Mass/Vol] 14.2 g/dL 11.5 - 15.5 g/dL [facility] Immature granulocytes (Bld) [#/Vol] 0.03 10*3/uL [facility] Immature granulocytes/100 WBC (Bld) 0.3 % [facility] Lymphocytes (Bld) [#/Vol] 3.19 10*3/uL [facility] Lymphocytes/100 WBC (Bld) 32.4 % [facility] MCH (RBC) [Entitic mass] 32.1 pg 26.0 - 34.0 pg [facility] MCHC (RBC) [Mass/Vol] 33.9 g/dL 30.5 - 36.0 g/dL [facility] MCV (RBC) [Entitic vol] 94.6 fL 80.0 - 100.0 fL [facility] Monocytes (Bld) [#/Vol] 0.74 10*3/uL [facility] Monocytes/100 WBC (Bld) 7.5 % [facility] Neutrophils (Bld) [#/Vol] 5.52 10*3/uL [facility] Neutrophils/100 WBC (Bld) 56.1 % [facility] Nucleated RBC (Bld) [#/Vol] [facility] Nucleated RBC/100 WBC (Bld) [Ratio] 0.0 % /100 WBC [facility] Platelet mean volume (Bld) [Entitic vol] 9.6 fL 9.0 - 12.7 fL [facility] Platelets (Bld) [#/Vol] 308 10*3/uL [facility] RBC (Bld) [#/Vol] 4.43 10*6/uL 3.90 - 5.2 0 m/uL [facility] WBC (Bld) [#/Vol] 9.85 10*3/uL [facility] Basophils (Bld) [#/Vol] 0.10 10*3/uL Normal <0.11 [facility] Comment on above: Order Comment: Speci men Type: BLOOD SPECIMENOrdering Facility: [facility] Address: [address] [place] [address] Performed By: #### 5 7021-8 ####[facility] LABCLIA [id number] [place] [address] [place] Basophils/100 WBC (Bld) 1.0 % Normal [facility] Comment on above: Order Comment: Speci men Type: BLOOD SPECIMENOrdering Facility: [facility] Address: [address] [place] [address] Performed By: #### 5 7021-8 ####[facility] LABCLIA [id number] [place] [address] [place] Differential cell count method Nom (Bld) Auto Normal [facility] Comment on above: Order Comment: Speci men Type: BLOOD SPECIMENOrdering Facility: [facility] Address: [address] [place] [address] Performed By: #### 5 7021-8 ####[facility] LABCLIA [id number] [place] [address] [place] Eosinophils (Bld) [#/Vol] 0.27 10*3/uL Normal <0.46 [facility] Comment on above: Order Comment: Speci men Type: BLOOD SPECIMENOrdering Facility: [facility] Address: [address] [place] [address] Performed By: #### 5 7021-8 ####[facility] LABCLIA [id number] [place] [address] [place] Eosinophils/100 WBC (Bld) 2.7 % Normal [facility] Comment on above: Order Comment: Speci men Type: BLOOD SPECIMENOrdering Facility: [facility] Address: [address] [place] [address] Performed By: #### 5 7021-8 ####[facility] LABCLIA [id number] [place] [address] [place] Erythrocyte distribution width (RBC) [Ratio] 12.2 % Normal 11.5-15.0 [facility] Comment on above: Order Comment: Speci men Type: BLOOD SPECIMENOrdering Facility: [facility] Address: [address] [place] [address] Performed By: #### 5 7021-8 ####[facility] LABIA [id number] [place] [address] [place] Hematocrit (Bld) [Volume fraction] 41.9 % Normal 36.0-46.0 [facility] Comment on above: Order Comment: Speci men Type: BLOOD SPECIMENOrdering Facility: [facility] Address: [address] [place] [address] Performed By: #### 5 7021-8 ####[facility] LABIA [id number] [place] [address] [place] Hemoglobin (Bld) [Mass/Vol] 14.2 g/dL Normal 11.5-15.5 [facility] Comment on above: Order Comment: Speci men Type: BLOOD SPECIMENOrdering Facility: [facility] Address: [address] [place] [address] Performed By: #### 5 7021-8 ####[facility] LABCLIA [id number] [place] [address] [place] Immature granulocytes (Bld) [#/Vol] 0.03 10*3/uL Normal <0.10 [facility] Comment on above: Order Comment: Speci men Type: BLOOD SPECIMENOrdering Facility: [facility] Address: [address] [place] [address] Performed By: #### 5 7021-8 ####[facility] LABCLIA [id number] [place] [address] [place] Immature granulocytes/100 WBC (Bld) 0.3 % Normal [facility] Comment on above: Order Comment: Speci men Type: BLOOD SPECIMENOrdering Facility: [facility] Address: [address] [place] [address] Performed By: #### 5 7021-8 ####[facility] LABCLIA [id number] [place] [address] [place] Lymphocytes (Bld) [#/Vol] 3.19 10*3/uL Normal 1.00-4.00 [facility] Comment on above: Order Comment: Speci men Type: BLOOD SPECIMENOrdering Facility: [facility] Address: [address] [place] [address] Performed By: #### 5 7021-8 ####[facility] LABCLIA [id number] [place] [address] [place] Lymphocytes/100 WBC (Bld) 32.4 % Normal [facility] Comment on above: Order Comment: Speci men Type: BLOOD SPECIMENOrdering Facility: [facility] Address: [address] [place] [address] Performed By: #### 5 7021-8 ####[facility] LABCLIA [id number] [place] [address] [place] MCH (RBC) [Entitic mass] 32.1 pg Normal 26.0-34.0 [facility] Comment on above: Order Comment: Speci men Type: BLOOD SPECIMENOrdering Facility: [facility] Address: [address] [place] [address] Performed By: #### 5 7021-8 ####[facility] LABCLIA [id number] [place] [address] [place] MCHC (RBC) [Mass/Vol] 33.9 g/dL Normal 30.5-36.0 [facility] Comment on above: Order Comment: Speci men Type: BLOOD SPECIMENOrdering Facility: [facility] Address: [address] [place] [address] Performed By: #### 5 7021-8 ####[facility] LABCLIA [id number] [place] [address] [place] MCV (RBC) [Entitic vol] 94.6 fL Normal 80.0-100.0 [facility] Comment on above: Order Comment: Speci men Type: BLOOD SPECIMENOrdering Facility: [facility] Address: [address] [place] [address] Performed By: #### 5 7021-8 ####[facility] LABCLIA [id number] [place] [address] [place] Monocytes (Bld) [#/Vol] 0.74 10*3/uL Normal <0.87 [facility] Comment on above: Order Comment: Speci men Type: BLOOD SPECIMENOrdering Facility: [facility] Address: [address] [place] [address] Performed By: #### 5 7021-8 ####[facility] LABCLIA [id number] [place] [address] [place] Monocytes/100 WBC (Bld) 7.5 % Normal [facility] Comment on above: Order Comment: Speci men Type: BLOOD SPECIMENOrdering Facility: [facility] Address: [address] [place] [address] Performed By: #### 5 7021-8 ####[facility] LABCLIA [id number] [place] [address] [place] Neutrophils (Bld) [#/Vol] 5.52 10*3/uL Normal 1.45-7.50 [facility] Comment on above: Order Comment: Speci men Type: BLOOD SPECIMENOrdering Facility: [facility] Address: [address] [place] [address] Performed By: #### 5 7021-8 ####[facility] LABCLIA [id number] [place] [address] [place] Neutrophils/100 WBC (Bld) 56.1 % Normal [facility] Comment on above: Order Comment: Speci men Type: BLOOD SPECIMENOrdering Facility: [facility] Address: [address] [place] [address] Performed By: #### 5 7021-8 ####[facility] LABCLIA [id number] [place] [address] [place] Nucleated RBC (Bld) [#/Vol] 10*3/uL Normal <0.01 [facility] Comment on above: Order Comment: Speci men Type: BLOOD SPECIMENOrdering Facility: [facility] Address: [address] [place] [address] Performed By: #### 5 7021-8 ####[facility] LABCLIA [id number] [place] [address] [place] Nucleated RBC/100 WBC (Bld) [Ratio] 0.0 /100 WBC Normal [facility] Comment on above: Order Comment: Speci men Type: BLOOD SPECIMENOrdering Facility: [facility] Address: [address] [place] [address] Performed By: #### 5 7021-8 ####[facility] LABCLIA [id number] [place] [address] [place] Platelet mean volume (Bld) [Entitic vol] 9.6 fL Normal 9.0-12.7 [facility] Comment on above: Order Comment: Speci men Type: BLOOD SPECIMENOrdering Facility: [facility] Address: [address] [place] [address] Performed By: #### 5 7021-8 ####[facility] LABCLIA [id number] [place] [address] [place] Platelets (Bld) [#/Vol] 308 10*3/uL Normal 150-400 [facility] Comment on above: Order Comment: Speci men Type: BLOOD SPECIMENOrdering Facility: [facility] Address: [address] [place] [address] Performed By: #### 5 7021-8 ####[facility] LABCLIA [id number] [address] [address] [place] RBC (Bld) [#/Vol] 4.43 10*6/uL Normal 3.90-5.20 [facility] Comment on above: Order Comment: Speci men Type: BLOOD SPECIMENOrdering Facility: [facility] Address: [address] [place] [address] Performed By: #### 5 7021-8 ####[facility] LABCLIA [id number] [place] [address] [place] WBC (Bld) [#/Vol] 9.85 10*3/uL Normal 3.70-11.00 [facility] Comment on above: Order Comment: Speci men Type: BLOOD SPECIMENOrdering Facility: [facility] Address: [address] [place] [address] Performed By: #### 5 7021-8 ####[facility] LABCLIA [id number] [place] [address] [place] CNOVon 07-13-2024 CNOV Normal [facility] Comprehensive metabolic 2000 panelon 07-13-2024 Albumin [Mass/Vol] 3.8 g/dL Low 3.9-4.9 [facility] Comment on above: Order Comment: Speci men Type: BLOOD SPECIMENOrdering Facility: [facility] Address: [address] [place] [address] Performed By: #### 2 4323-8 ####[facility] LABCLIA [id number] [place] [id number] [place] ALP [Catalytic activity/Vol] 67 U/L Normal 34-123 [facility] Comment on above: Order Comment: Speci men Type: BLOOD SPECIMENOrdering Facility: [facility] Address: [address] [address] Performed By: #### 2 4323-8 ####[facility] LABCLIA [id number] [place] [address] [place] ALT [Catalytic activity/Vol] 18 U/L Normal 7-38 [facility] Comment on above: Order Comment: Speci men Type: BLOOD SPECIMENOrdering Facility: [facility] Address: [address] [place] [address] Performed By: #### 2 4323-8 ####[facility] LABCLIA [id number] [place] [address] [place] Anion gap [Moles/Vol] 6 mmol/L Low 8-15 [facility] Comment on above: Order Comment: Speci men Type: BLOOD SPECIMENOrdering Facility: [facility] Address: [address] [place] [address] Performed By: #### 2 4323-8 ####[facility] LABCLIA [id number] [place] [address] [place] AST [Catalytic activity/Vol] 21 U/L Normal 13-35 [facility] Comment on above: Order Comment: Speci men Type: BLOOD SPECIMENOrdering Facility: [facility] Address: [address] [address] Performed By: #### 2 4323-8 ####[facility] LABCLIA [id number] [place] [address] [place] Bilirubin [Mass/Vol] mg/dL Low 0.2-1.3 [facility] Comment on above: Order Comment: Speci men Type: BLOOD SPECIMENOrdering Facility: [facility] Address: [address] [place], [place] [address] Performed By: #### 2 4323-8 ####[facility] LABCLIA [id number] [id number] [address] [place] Calcium [Mass/Vol] 9.0 mg/dL Normal 8.5-10.2 [facility] Comment on above: Order Comment: Speci men Type: BLOOD SPECIMENOrdering Facility: [facility] Address: [address] [place] [address] Performed By: #### 2 4323-8 ####[facility] LABCLIA [id number] [place] [address] [place] Chloride [Moles/Vol] 105 mmol/L Normal 98-107 [facility] Comment on above: Order Comment: Speci men Type: BLOOD SPECIMENOrdering Facility: [facility] Address: [address] [place] [address] Performed By: #### 2 4323-8 ####[facility] LABCLIA [id number] [place] [address] [place] CO2 [Moles/Vol] 30 mmol/L Normal 22-30 [facility] Comment on above: Order Comment: Speci men Type: BLOOD SPECIMENOrdering Facility: [facility] Address: [address] [place] [address] Performed By: #### 2 4323-8 ####[facility] LABCLIA [id number] [place] [address] [place] Creatinine [Mass/Vol] 0.79 mg/dL Normal 0.58-0.96 [facility] Comment on above: Order Comment: Speci men Type: BLOOD SPECIMENOrdering Facility: [facility] Address: [address] [place] [address] Performed By: #### 2 4323-8 ####[facility] LABCLIA [id number] [place] [address] [place] Creatinine and Glomerular filtration rate.predicted panel (S/P/Bld) 96 mL/min/1.73m??? Normal >=60 [facility] Comment on above: Order Comment: Speci men Type: BLOOD SPECIMENOrdering Facility: [facility] Address: [address] [place] [address] Result Comment: Cristal mated Glomerular Filtration Rate [...] actual GFR. Performed By: #### 2 4323-8 ####[facility] [id number] [place] [address] [place] Glucose [Mass/Vol] 68 mg/dL Low 74-99 [facility] Comment on above: Order Comment: Luana davenport Type: BLOOD SPECIMENOrdering Facility: [facility] Address: [address] [place] [address] Result Comment: The [place] [employer] (ADA) provides guidance for cutoff [...] Standards of Medical Care in Diabetes 2016, [place] [employer]. Diabetes Care. 2016.39(Suppl 1). Performed By: #### 2 4323-8 ####[facility] [id number] [place] [address] [place] Potassium [Moles/Vol] 4.3 mmol/L Normal 3.7-5.1 [facility] Comment on above: Order Comment: Luana davenport Type: BLOOD SPECIMENOrdering Facility: [facility] Address: [address] [place] [address] Performed By: #### 2 4323-8 ####[facility] LABCLIA [id number] [place] [address] [place] Protein [Mass/Vol] 5.9 g/dL Low 6.3-8.0 [facility] Comment on above: Order Comment: Speci men Type: BLOOD SPECIMENOrdering Facility: [facility] Address: [address] [place] [address] Performed By: #### 2 4323-8 ####[facility] LABCLIA [id number] [place] [address] [place] Sodium [Moles/Vol] 141 mmol/L Normal 136-144 [facility] Comment on above: Order Comment: Speci men Type: BLOOD SPECIMENOrdering Facility: [facility] Address: [address] [place] [address] Performed By: #### 2 4323-8 ####[facility] LABCLIA [id number] [place] [address] [place] Urea nitrogen [Mass/Vol] 8 mg/dL Normal 7-21 [facility] Comment on above: Order Comment: Speci men Type: BLOOD SPECIMENOrdering Facility: [facility] Address: [address] [place] [address] Performed By: #### 2 4323-8 ####[facility] LABCLIA [id number] [place] [address] [place] CNOVon 07-11-2024 CNOV Normal [facility] Estradiol SerPl-mCncon 07-10 E2 [Mass/Vol] 380 pg/mL Normal [facility] Comment on above: Order Comment: Speci men Type: BLOOD SPECIMENOrdering Facility: [facility] Address: [address] [place] [address] Result Comment: This test is not suitable for patients receiving treatment with the drug Fulvestrant (Faslodex). The drug causes an interference leading to falsely elevated estradiol results.Menstrual cycle Estradiol reference ranges:Follicular : < 234 pg/mLOvulation : 41 to 398 pg/mLLuteal : < 342 pg/mLPregnancy Estradiol reference ranges vary by gestational period:First trimester : 154 to 3243 pg/mLSecond trimester : 1561 to 05296 pg/mLThird trimester : 8285 to >63065 pg/mLPost-menopausal Estradiol reference range: < 41 pg/mLReference: 1. Estradiol - E2 (Estradiol III) [package insert V 3.0 Citizen [place]]. [facility], [place], [place], November 2015. Performed By: #### 2 243-4, 03776-6 ####[facility] LABCLIA [id number] [place] [id number] [place] FSH SerPl-aCncon 07-10-2024 Follitropin Qn 13.9 m[IU]/mL Normal See comment [facility] Comment on above: Order Comment: Speci men Type: BLOOD SPECIMENOrdering Facility: [facility] Address: [address] [place] [address] Result Comment: Refe rence range: Follicular: 3.5-12.5 mIU/mL Ovulation: 4.7-21.5 mIU/mL Luteal: 1.7-7.7 mIU/mL Postmenopausal: 25.8-134.8 mIU/mL Performed By: #### 2 243-4, 54645-5 ####[facility] LABIA [id number] [place] [address] [place] Plastic Surgery Visit Report on 07-10-2024 Plastic Surgery Visit Report [facility] Plastic Reconstructive Surgery [address], [address] [place], [place] [id number] OFFICE VISIT Date of Service: 07/10/24 MR#: [id number] Acct: [id number] Name: PAT MEDINA Rep #: [id number] : 1980 Provider: Dr. Constanza esposito MD Age/Sex: 44/F Location: [facility] Status: Signed Intake Vital Signs 07/03/24 09:54 [...] of connect (more content not included)... Normal [facility] CNOVon 07-09-2024 CNOV Normal [facility] HIGH RISK HUMAN PAPILLOMA GENEVA (HPV), PCR FOR DETECTION AND GENOTYPINGon 07-09-2024 HPV 16 Ag Ql (Unsp spec) Not detected Normal Not detected [facility] Comment on above: Order Comment: Speci men Type: FLUID SPECIMENOrdering Facility: [facility] Address: [address] [place] [address] Performed By: #### H PVHRT ####[facility] LABCLIA [id number] [place] [address] [place] HPV 18 Ag Ql (Unsp spec) Not detected Normal Not detected [facility] Comment on above: Order Comment: Speci men Type: FLUID SPECIMENOrdering Facility: [facility] Address: [address] [place] [address] Performed By: #### H PVHRT ####[facility] LABIA [id number] [place] [address] [place] HPV 31+33+35+39+45+51+52+ 56+58+59+66+68 DNA MARY KAY+probe Ql (Cvx) Not detected Normal Not detected [facility] Comment on above: Order Comment: Speci men Type: FLUID SPECIMENOrdering Facility: [facility] Address: [address] [place] [address] Result Comment: High Risk HPV Other Type includes HPV types 31, 33, 35, 39, 45, 51, 52, 56, 58, 59, 66 and 68. Performed By: #### H PVHRT ####[facility] LABIA [id number] [place] [address] [place] PAP TESTon 07-09-2024 ADEQUACY Normal [facility] Comment on above: Order Comment: Speci men Type: FLUID SPECIMENOrdering Facility: [facility] Address: [address] [place] [address] Result Comment: Sati sfactory for interpretation.Limited cellularity due to acellular background materialNo endocervical component Performed By: #### L [id number] ####[facility] LABCLIA [id number] [place] [address] [place] CASE REPORT Normal [facility] Comment on above: Order Comment: Speci men Type: FLUID SPECIMENOrdering Facility: [facility] Address: [address] [place] [address] Result Comment: Gyne cologic Cytology Report Case: [id number] Provider: Cecile Patricia APRN.BLUEBERRY GROWER Collected: 07/09/2024 08:18 AMOrdering Location: OB/Gynecology Received: 07/09/2024 12:35 PMFirst Screen: Clapacs, ElishaSpecimen: Pap Test, ThinPrep, Cervix Performed By: #### L [id number] ####[facility] LABCLIA [id number] [place] [address] [place] CLINICAL HISTORY, CYTOLOGY, MACHINE BUFFER Routine Exam Normal [facility] Comment on above: Order Comment: Speci men Type: FLUID SPECIMENOrdering Facility: [facility] Address: [address] [place] [address] Result Comment: No M enses, Other (Specify)ablation Performed By: #### L [id number] ####[facility] LABCLIA [id number] [place] [address] [place] FINAL PERFORMING LAB Normal [facility] Comment on above: Order Comment: Speci men Type: FLUID SPECIMENOrdering Facility: [facility] Address: [address] [place] [address] Result Comment: Tech nical component, regional engagement consultant screening performed at [facility], [address] [id number] CLIA# [id number] interpretation performed at [facility], [address] [place], [place] [id number] CLIA# [id number] Director: Jose Guadalupe Madden M.D. Performed By: #### L [id number] ####[facility] LABCLIA [id number] [place] [address] [place] INTERPRETATION, CYTOLOGY, MACHINE BUFFER Normal [facility] Comment on above: Order Comment: Speci men Type: FLUID SPECIMENOrdering Facility: [facility] Address: [address] [place] [address] Result Comment: Nega tive for intraepithelial lesion or malignancy. Performed By: #### L [id number] ####[facility] LABCLIA [id number] [place] [address] [place] PAP DISCLAIMER COMMENT The Pap Smear is a screening test for cervical cancer. False negative results occur with all screening tests, emphasizing the need for rescreening at recommended intervals, and clinical correlation. Normal [facility] Comment on above: Order Comment: Speci men Type: FLUID SPECIMENOrdering Facility: [facility] Address: [address] [place] [address] Performed By: #### L [id number] ####[facility] LABCLIA [id number] [place] [address] [place] PAP FUEL TANK SEALER AND TESTER COMMENT Normal [facility] Comment on above: Order Comment: Speci men Type: FLUID SPECIMENOrdering Facility: [facility] Address: [address] [place] [address] Performed By: #### L [id number] ####[facility] LABCLIA [id number] [place] [id number] [place] CNPNon 07-07-2024 CNPN Normal [facility] Forearm 2 Viewson 07-03-2024 Forearm 2 Views [facility] Imaging Services [address] [place] [address] Forearm 2 Views MR#: [id number] Acct: [id number] Name: PAT MEDINA Rep #: [id number] : 1980 F 44 From: Tim Garcia MD PCP: Dr. Maile Norman MD Status: REG CLI Study: Forearm 2 Views Date of Exam: 07/03/24 Exam# [id number] Ordering Dr: Constanza Cordova MD [id number] STUDY: X-RAY - LEFT RADIUS AND ULNA [...] 16:05 EST Reading Location ID and State: [address] [place] [address] , Service support , CC: Dr. Maile Norman MD; Dr. Constanza Cordova MD Polisher Apprentice: Signed Normal [facility] Plastic Surgery Visit Report on 07-03-2024 Plastic Surgery Visit Report [facility] Plastic Reconstructive Surgery [address], [address] [place], [place] [address] OFFICE VISIT Date of Service: 07/03/24 MR#: [id number] Acct: [id number] Name: PAT MEDINA Rep #: [id number] : 1980 Provider: Dr. Constanza esposito MD Age/Sex: 44/F Location: [facility] Status: Signed Intake Vital Signs 06/06/24 13:34 [...] pt here with for result of ultrasound [facility] Medical History Right rotator cuff tear [...] vis,est,level 3 (more content not included)... Normal [facility] Emergency Department Summary on 07-02-2024 Emergency Department Summary [facility] Medical Records Department [address] [place] [address] Emergency Department Summary 07/02/24 MR#: [id number] Acct: [id number] Name: PAT MEDINA Rep #: [id number] : 1980 44 From: John Bass DO [...] Excedrin. Patient denies any recent head injuries. [facility] Medical History Right rotator cuff [...] mouth swellin (more content not included)... Normal [facility] Other Unlisted US Procedureo n 06-28-2024 Other Unlisted US Procedure [facility] Imaging Services [address] [place] [address] Other Unlisted US Procedure MR#: [id number] Acct: [id number] Name: PAT MEDINA Rep #: [id number] : 1980 F 44 From: Deena Reardon MD PCP: Dr. Maile Norman MD Status: DEP CLI Study: Other Unlisted US Procedure Date of Exam: 08/21 Exam# [id number] Ordering Dr: Constanza Cordova MD ADDENDUM by Dr. Cristhian Wilhelm MD on 08/16/24 at 1500 This is an addendum to correct report header and technique: Real-Time targeted ultrasound imaging of the soft tissues of the left forearm were obtained. 09/07/24 0757 Date cc: Dr. Maile Norman MD; Dr. Constanza Cordova MD * Signed [id number] EXAM: US ABDOMEN LIMITED CLINICAL INDICATION: lump [...] Maile Norman MD; Dr. Constanza Cordova MD Polisher Apprentice: Signed Normal [facility] MR Shoulder - right WO contr raheel 06-15-2024 IMPRESSION: 1. Postoperative changes of biceps . 2. Rotator cuff tendinosis without evidence of a high-grade tear. 3. Mild to moderate subdeltoid subacromial bursitis. Polisher Apprentice: PSCB Transcribe Date/Time: Jun 15 2024 6:15P Dictated by : SHAWNEE BRICE MD This examination was interpreted and the report reviewed and electronically signed by: SHAWNEE BRICE MD on Jun 15 2024 6:24PM [facility] DIVISION OF RADIOLOGY * * *Final Report* * * DATE OF EXAM: Jun 15 2024 1:17PM [facility] 0240 - MRI SHOULDER WO IVCON [...] No additional findings. DIVISION OF RADIOLOGY Provider, [facility] - 06/15/2024 * * *Final Report* * * DATE OF EXAM: Jun 15 2024 1:17PM [facility] 0240 - MRI SHOULDER WO IVCON [...] 3. Mild to moderate subdeltoid subacromial bursitis. Polisher Apprentice: [facility] Transcribe Date/Time: Jun 15 2024 6:15P Dictated by : SHAWNEE BRICE MD This examination was interpreted and the report reviewed and electronically signed by: SHAWNEE BRICE MD on Jun 15 2024 6:24PM EST [facility] Radiology Study observation (narrative) [facility] MR Shoulder - right WO contr astOrdered By: Ccf Provider on 06-15-2024 [facility] MRI SHOULDER WO IVCON RTon 1 08-16-2023 MRI SHOULDER WO IVCON RT Normal [facility] Plastic Surgery Visit Report on 06-06-2024 [facility] [address], [address] [place] [address] OFFICE VISIT Date of Service: 06/06/24 MR#: [id number] Acct: [id number] Name: PAT MEDINA Rep #: [id number] : 1980 Provider: Dr. Constanza esposito MD Age/Sex: 44/F Location: [facility] Status: Signed Intake Vital Signs 03/18/24 13:22 [...] bump beside the area. bump is painfule [facility] Medical History Right rotator cuff tear [...] asthma, emphysem (more content not included)... Normal [facility]05-2024 [facility] 05-29-2024 [facility] Normal [facility] 05-25-2024 [facility] Normal [facility] XR HAND 3V PA/LAT/OBL RTon 1 07-25-2023 XR HAND 3V PA/LAT/OBL RT Normal [facility] XR Hand - right PA and Later al and Obliqueon 05-25-2024 IMPRESSION: Negative ulnar variance. No acute radiographic abnormalities identified. Polisher Apprentice: DARSHAN Transcribe Date/Time: May 25 2024 12:08P Dictated by : OTTONIEL OSHEA MD This examination was interpreted and the report reviewed and electronically signed by: OTTONIEL OSHEA MD on May 25 2024 12:10PM [facility] DIVISION OF RADIOLOGY * * [...] tissue swelling. DIVISION OF RADIOLOGY Provider, [facility] - 05/25/2024 * * *Final Report* * [...] ulnar variance. No acute radiographic abnormalities identified. Polisher Apprentice: PSCB Transcribe Date/Time: May 25 2024 12:08P Dictated by : OTTONIEL OSHEA MD This examination was interpreted and the report reviewed and electronically signed by: OTTONIEL OSHEA MD on May 25 2024 12:10PM EST [facility] Radiology Study observation (narrative) [facility] XR Hand - right PA and Later al and ObliqueOrdered By: Ccf Provider on 05-25-2024 [facility] CNOVon 05-23-2024 CNOV Normal [facility] CNOVon 05-15-2024 CNOV Normal [facility] CNPNon 05-15-2024 CNPN Normal [facility] CNOVon 05-11-2024 CNOV Normal [facility] HSV+VZV DNA MARY KAY+probe Ql (Un sp spec)on 05-11-2024 HSV 1 DNA MARY KAY+probe Ql (Unsp spec) Not detected Normal Not Detected [facility] Comment on above: Order Comment: Speci men Type: SWABOrdering Facility: [facility] Address: [address] [place] [address] Performed By: #### 3 3027-4 ####[facility] LABCLIA [id number] [place] [address] [place] HSV 2 DNA MARY KAY+probe Ql (Unsp spec) Not detected Normal Not Detected [facility] Comment on above: Order Comment: Speci men Type: SWABOrdering Facility: [facility] Address: [address] [place] [address] Performed By: #### 3 3027-4 ####[facility] LABCLIA [id number] [address] [place] VZV DNA MARY KAY+probe Ql (Unsp spec) Not detected Normal Not Detected [facility] Comment on above: Order Comment: Speci men Type: SWABOrdering Facility: [facility] Address: [address] [place] [address] Performed By: #### 3 3027-4 ####[facility] LABCLIA [id number] [place] [address] [place] CNOVon 05-10-2024 CNOV Normal [facility] XR FOREARM 2V AP/LAT LTon XR FOREARM 2V AP/LAT LT Normal [facility] XR Radius and Ulna - left AP and Lateralon 05-10-2024 IMPRESSION: No acute osseous abnormality Polisher Apprentice: DARSHAN Transcribe Date/Time: May 10 2024 12:29P Dictated by : ZACHERY RO MD This examination was interpreted and the report reviewed and electronically signed by: ZACHERY RO MD on May 10 2024 12:30PM [facility] DIVISION OF RADIOLOGY * * [...] spaces are maintained. DIVISION OF RADIOLOGY Provider, [facility] - 05/10/2024 * * *Final Report* [...] maintained. IMPRESSION IMPRESSION: No acute osseous abnormality Polisher Apprentice: [facility] Transcribe Date/Time: May 10 2024 12:29P Dictated by : ZACHERY RO MD This examination was interpreted and the report reviewed and electronically signed by: ZACHERY RO MD on May 10 2024 12:30PM EST [facility] Radiology Study observation (narrative) [facility] XR Radius and Ulna - left AP and LateralOrdered By: Ccf Provider on 05-10-[address] [facility] [address] ABDOMEN/PELVIS W/O CONTRA STon 04-29-2024 [...] 9:43:43 PM Ordering Provider: JUAN MIGUEL Solo [facility] LABORATORYOrdered By: Carmen Moreira on 04-29-2024 [...] SS UAon 04-29-2024 Color (U) Yellow Normal [facility] Comment on above: Performed By: #### U A #### [address] [address] Glucose (U) [Mass/Vol] Negative Normal Negative [facility] Comment on above: Performed By: #### U A #### [address] [address] Ketones Ql (U) Negative Normal Negative [facility] Comment on above: Performed By: #### U A #### [address] [address] UA Appear Clear Normal Clear [facility] Comment on above: Performed By: #### U A #### [address] [address] UA Blood Negative Normal Negative [facility] Comment on above: Performed By: #### U A #### [address] [address] UA Leuk Est Negative Normal Negative [facility] Comment on above: Performed By: #### U A #### [address] [address] UA Nitrite Negative Normal Negative [facility] Comment on above: Performed By: #### U A #### [place] [address] UA pH 6.5 Normal 5.0 - 8.0 [facility] Comment on above: Performed By: #### U A #### [address] [address] UA Protein Negative Normal Negative [facility] Comment on above: Performed By: #### U A #### [address] [address] UA Spec Grav 1.015 Normal 1.015-1.025 [facility] Comment on above: Performed By: #### U A #### [address] [address] UA Specimen Type Clean Catch Normal [facility] Comment on above: Performed By: #### U A #### [place] [address] UA Urobilinogen 0.2 E.U./dL Normal 0.2-1.0 [facility] Comment on above: Performed By: #### U A #### [place] [address] Urobilinogen (U) [Mass/Vol] Negative Normal Negative [facility] Comment on above: Performed By: #### U A #### [facility] [address] [place], [place] [address] CNOVon 04-25-2024 CNOV Normal [facility] CNPNon 04-17-2024 CNPN Normal [facility] CNOVon 04-13-2024 CNOV Normal [facility] CNOVon 03-28-2024 CNOV Normal [facility] CNPNon 03-23-2024 CNPN Normal [facility] Brain/Head without Contrasto n 03-18-2024 Brain/Head without Contrast [facility] Imaging Services [address] [place] [id number] Brain/Head without Contrast MR#: [id number] Acct: [id number] Name: PAT MEDINA Rep #: [id number] : 1980 F 44 From: Kofi Spring PCP: Dr. Maile Norman MD Status: [facility] ER Study: Brain/Head without Contrast Date of Exam: 02/26 08/20 Exam# [id number] Ordering Dr: Prasanth Keith DO [id number] EXAM: CT HEAD WITHOUT INTRAVENOUS CONTRAST CLINICAL [...] Maile Norman MD; Dr. Prasanth Keith DO Polisher Apprentice: Signed Normal [facility] Elbow min 3 Viewson 03-18-20 Elbow min 3 Views [facility] Imaging Services [address] [place], [place] [address] Elbow min 3 Views MR#: [id number] Acct: [id number] Name: PAT MEDINA Rep #: [id number] : 1980 F 44 From: Kofi Spring PCP: Dr. Maile Norman MD Status: REG ER Study: Elbow min 3 Views Date of Exam: 03/18/24 Exam# [id number] Ordering Dr: Prasanth Keith DO [id number] EXAM: XR LEFT ELBOW COMPLETE, 3 OR [...] Maile Norman MD; Dr. Prasanth Keith DO Polisher Apprentice: Signed Normal [facility] Emergency Department Summary on 03-18-2024 Emergency Department Summary [facility] Medical Records Department [address] [place] [address] Emergency Department Summary 03/18/24 MR#: [id number] Acct: [id number] Name: PAT MEDINA Rep #: [id number] : 1980 44 From: Prasanth Keith DO [...] however denies any suicidal or homicidal ideations. [facility] Medical History Right rotator cuff [...] the bi (more content not included)... Normal [facility] Forearm 2 Viewson 03-18-2024 Forearm 2 Views [facility] Imaging Services [address] [place] [address] Forearm 2 Views MR#: [id number] Acct: [id number] Name: PAT MEDINA Rep #: [id number] : 1980 F 44 From: oKfi Spring PCP: Dr. Maile Norman MD Status: [facility] ER Study: Forearm 2 Views Date of Exam: 03/18/24 Exam# [id number] Ordering Dr: Prasanth Keith DO [id number] INDICATION: lac EXAMINATION/TECHNIQUE : X-RAY - LEFT [...] Maile Norman MD; Dr. Prasanth Keith DO Polisher Apprentice: Signed Normal [facility] Sinus/Facial Boneon 03-18-20 Sinus/Facial Bone [facility] Imaging Services [address] [place] [address] Sinus/Facial Bone MR#: [id number] Acct: [id number] Name: PAT MEDINA Rep #: [id number] : 1980 F 44 From: Kofi Spring PCP: Dr. Maile Norman MD Status: REG ER Study: Sinus/Facial Bone Date of Exam: 03/18/24 Exam# [id number] Ordering Dr: Prasanth Keith DO [id number] EXAM: CT MAXILLOFACIAL WITHOUT INTRAVENOUS CONTRAST CLINICAL [...] Maile Norman MD; Dr. Prasanth Keith DO Polisher Apprentice: Signed Normal [facility] Spine Cervical without Contr ason 03-18-2024 Spine Cervical without Contras [facility] Imaging Services [address] [place] [address] Spine Cervical without Contras MR#: [id number] Acct: [id number] Name: PAT MEDINA Rep #: [id number] : 1980 F 44 From: Kofi Spring PCP: Dr. Maile Norman MD Status: REG ER Study: Spine Cervical without Contras Date of Exam: 0 03/18/24 Exam# [id number] Ordering Dr: Prasanth Keith DO [id number] STUDY: CT Spine Cervical W/O Contrast Injection [...] 15:42 EDT Reading Location ID and State: [facility] / ID , Service support , CC: Dr. Maile Norman MD; Dr. Prasanth Keith DO Polisher Apprentice: Signed Normal [facility] XR Chest PA and Lateralon IMPRESSION: No acute radiographic abnormality. Polisher Apprentice: PSCB Transcribe Date/Time: Mar 07 2024 4:07P Dictated by : ALEX MUNIZ MD This examination was interpreted and the report reviewed and electronically signed by: ALEX MUNIZ MD on Mar 07 2024 4:07PM [facility] DIVISION OF RADIOLOGY * * [...] Mild degenerative changes. DIVISION OF RADIOLOGY Provider, [facility] Laura Garcia - 03/07/2024 * * *Final [...] changes. IMPRESSION IMPRESSION: No acute radiographic abnormality. Polisher Apprentice: PSCB Transcribe Date/Time: Mar 07 2024 4:07P Dictated by : ALEX MUNIZ MD This examination was interpreted and the report reviewed and electronically signed by: ALEX MUNIZ MD on Mar 07 2024 4:07PM EST [facility] Radiology Study observation (narrative) [facility] XR Chest PA and LateralOrder ed By: Ccf Provider on 03-07-2024 [facility] CNOVon 02-07-2024 CNOV Office Visit ([id number] ) PAT MEDINA ([id number]) 1980 F Date Time Provider Department 02/07/24 [...] AND Elbow Surgeon Department of Orthopaedic Surgery [facility] Merline Corcoran LPN 02/17/2024 10:26 AM Signed [...] chronicity [M25.511] Order(s):MRI SHOULDER WO IVCON RIGHT [[id number]] Order #: [id number] FUTURE Large Joint Arthro/Inj: R shoulder joint [WMK263] Order #: [id number] [] bupivacaine (PF) 0.25 % (2.5 mg/mL) [...] daily. With (more content not included)... Normal [facility] Large Joint Arthro/Inj: R sh [...] the patient voiced understanding of these instructions. [facility] LABORATORYOrdered By: SYSTEM SYSTEM on 10-10-2023 Lipase [Catalytic activity/Vol] 36 U/L Normal 16 - 77 U/L AO ADM SS LIPon 10-10-2023 Lipase Level 36 U/L Normal 16-77 [facility] ([place]) Comment on above: Performed By: #### L IP #### [address] [address] .Auto Diffon 09-26-2023 Basophil, Absolute 0.2 10 3/mcL Normal 0.0-0.2 [facility] ([place]) Comment on above: Performed By: #### A [place]ONA [place] CBC, MDW #### [address] [address] Basophils/100 WBC (Bld) 1.4 % Normal 0.0-2.5 [facility] ([place]) Comment on above: Performed By: #### A [place] CBC, MDW #### [address] [address] Eosinophil, Absolute 0.0 10 3/mcL Normal 0.0-0.4 [facility] ([place]) Comment on above: Performed By: #### A [place] CBC, MDW #### [address] [address] Eosinophils/100 WBC (Bld) 0.2 % Normal 0.0-7.0 [facility] ([place]) Comment on above: Performed By: #### A [place] CBC, MDW #### [address] [address] Lymphocyte, Absolute 2.6 10 3/mcL Normal 0.8-3.9 [facility] ([place]) Comment on above: Performed By: #### A [place] CBC, MDW #### [address] [address] Lymphocytes/100 WBC (Bld) 20.9 % Normal 10.0-50.0 [facility] ([place]) Comment on above: Performed By: #### A [place] CBC, MDW #### [address] [address] Monocyte, Absolute 0.7 10 3/mcL Normal 0.2-1.0 [facility] ([place]) Comment on above: Performed By: #### A [place]ONA [place] CBC, MDW #### [address] [address] Monocytes/100 WBC (Bld) 5.3 % Normal 1.7-13.0 [facility] ([place] Comment on above: Performed By: #### A [place]ONA [place] CBC, MDW #### [address] [address] Neutrophils/100 WBC (Bld) 72.2 % Normal 37.0-80.0 [facility] ([place] Comment on above: Performed By: #### A I[place]ONA [place] CBC, MDW #### [address] [address] .MDWon 09-26-2023 Monocyte Distribution Width 19.23 Normal 0.00-20.00 [facility] ([place]) Comment on above: Result Comment: For ED adult patients suspected of sepsis, MDW<=20.0 does not rule out sepsis or risk of sepsis Performed By: #### A IWONA [place] CBC, MDW #### [address] [address] .NEUABSon 04-01-2024 Neutrophil, Absolute 9.0 10 3/mcL High 2.9-6.2 [facility] ([place]) Comment on above: Performed By: #### A IWONA [place] CBC, MDW #### [address] [address] CBCon 09-26-2023 Erythrocyte distribution width (RBC) [Ratio] 14.3 % Normal 11.5-14.5 [facility] ([place] Comment on above: Performed By: #### A IWONA [place]ORD CBC, MDW #### [place] [address] [address] Hematocrit (Bld) [Volume fraction] 43.0 % Normal 37.0-47.0 [facility] ([place] Comment on above: Performed By: #### A IWONA SANFORD CBC, MDW #### [place] [id number] Hgb 15.1 G/dL Normal 12.0-16.0 [facility] ([place] Comment on above: Performed By: #### A IWONA [place]ORD CBC, MDW #### [address] [address] MCH (RBC) [Entitic mass] 32.6 pg High 27.0-31.2 [facility] ([place] Comment on above: Performed By: #### A IWONA SANFORD CBC, MDW #### [place] [address] MCHC 35.2 G/dL Normal 33.0-37.0 [facility] ([place] Comment on above: Performed By: #### A IWONA SANFORD CBC, MDW #### [address] [address] MCV (RBC) [Entitic vol] 92.6 fL Normal 80.0-94.0 [facility] ([place] Comment on above: Performed By: #### A IWONA SANFORD CBC, MDW #### [address] [address] Platelet 365 10 3/mcL Normal 130-400 [facility] ([place] Comment on above: Performed By: #### A IWONA SANFORD CBC, MDW #### [address] [address] Platelet mean volume (Bld) [Entitic vol] 7.6 fL Normal 7.4-10.4 [facility] ([place] Comment on above: Performed By: #### A IWONA SANFORD CBC, MDW #### [place] [address] RBC 4.64 10 6/mcL Normal 4.20-5.40 [facility] ([place] Comment on above: Performed By: #### A IWONA SANFORD CBC, MDW #### [place] [address] WBC 12.4 10 3/mcL High 4.6-10.8 [facility] ([place]) Comment on above: Performed By: #### A IWONA SANFORD CBC, MDW #### [address] [address] LABORATORYOrdered By: SYSTEM SYSTEM on 09-26-2023 Basophil, [...] 09/26/2023 9:41:45 PM Ordering Provider: TU Solo [facility] ([place] STREP A MOLECULAR (POC)on Procedural Control Valid [facility] Strep A (POCT) Negative Negative [facility] XR Chest PA and Lateralon IMPRESSION: No acute radiographic abnormality. Polisher Apprentice: PSCB Transcribe Date/Time: Aug 11 2023 8:47A Dictated by : LIZBETH GONZALEZ DO This examination was interpreted and the report reviewed and electronically signed by: LIZBETH GONZALEZ DO on Aug 11 2023 8:50AM [facility] DIVISION OF RADIOLOGY * * [...] soft tissues: Unremarkable. DIVISION OF RADIOLOGY Provider, [facility] Laura Garcia - 08/11/2023 * * *Final Report* [...] Unremarkable. IMPRESSION IMPRESSION: No acute radiographic abnormality. Polisher Apprentice: PSCB Transcribe Date/Time: Aug 11 2023 8:47A Dictated by : LIZBETH GONZALEZ DO This examination was interpreted and the report reviewed and electronically signed by: LIZBETH GONZALEZ DO on Aug 11 2023 8:50AM EST [facility] Radiology Study observation (narrative) [facility] XR Chest PA and LateralOrder ed By: Ccf Provider on 08-11-2023 [facility] INFLUENZA A&B MOLECULAR (POC )on 08-01-2023 Flu A (POCT) Negative Negative [facility] Flu B (POCT) Negative Negative [facility] Procedural Control Valid [facility] UA DIP, URINE (POC)on 2022 BILIRUBIN UA (POCT) Negative Negative [facility] CLARITY UA (POCT) Clear [facility] COLOR UA (POCT) Yellow [facility] GLUCOSE UA (POCT) Negative Negative mg/dL [facility] Hemoglobin Ql (U) Negative Negative [facility] KETONE UA (POCT) Negative Negative mg/dL [facility] LEUKOCYTES UA (POCT) Negative Negative [facility] NITRITE UA (POCT) Negative Negative [facility] PH UA (POCT) 6.0 4.5 - 8.0 [facility] Protein Ql (U) 30 mg/dL Abnormal Negative mg/dL [facility] SPECIFIC GRAVITY UA (POCT) <=1.005 Abnormal 1.005 - 1.030 [facility] UROBILINOGEN UA (POCT) 0.2 E.U./dL Normal E.U./dL [facility] UA DIP, URINE (POC)on 2022 BILIRUBIN UA (POCT) Negative Negative [facility] CLARITY UA (POCT) Clear [facility] COLOR UA (POCT) Yellow [facility] GLUCOSE UA (POCT) Negative Negative mg/dL [facility] Hemoglobin Ql (U) Trace-intact Abnormal Negative [facility] KETONE UA (POCT) Negative Negative mg/dL [facility] LEUKOCYTES UA (POCT) Large Abnormal Negative [facility] NITRITE UA (POCT) Negative Negative [facility] PH UA (POCT) 6.5 4.5 - 8.0 [facility] Protein Ql (U) Negative Negative mg/dL [facility] SPECIFIC GRAVITY UA (POCT) 1.025 1.005 - 1.030 [facility] UROBILINOGEN UA (POCT) 0.2 E.U./dL Normal E.U./dL [facility] XR Chest PA and Lateralon IMPRESSION: No acute radiographic abnormality. Polisher Apprentice: DARSHAN Transcribe Date/Time: Mar 30 2023 8:48A [...] soft tissues: Unremarkable. DIVISION OF RADIOLOGY Provider, [facility] - 03/30/2023 * * *Final Report* [...] Unremarkable. IMPRESSION IMPRESSION: No acute radiographic abnormality. Polisher Apprentice: PSCB Transcribe Date/Time: Mar 30 2023 8:48A Dictated by : OTTONIEL OSHEA MD This examination was interpreted and the report reviewed and electronically signed by: OTTONIEL OSHEA MD on Mar 30 2023 8:49AM EST [facility] Radiology Study observation (narrative) [facility] XR Chest PA and LateralOrder ed By: Ccf Provider on 03-30-2023 [facility] XR SHOULDER MINIMUM 2 VIEWS RIGHTon [...] AM Ordering Provider: LAVONNE Solo [facility] ([place]) MRI SHOULDER WO/W IVCON RIGH Ton 03-11-2023 [facility] XR Sacrum and Coccyx 3 Views on 12-03-2022 IMPRESSION: NO ACUTE OSSEOUS ABNORMALITY Polisher Apprentice: DARSHAN Transcribe Date/Time: Dec 03 2022 5:09P Dictated by : TYESHA MARX MD This examination was interpreted and the report reviewed and electronically signed by: TYESHA MARX MD on Dec 03 2022 5:09PM [facility] DIVISION OF RADIOLOGY * * [...] --- IMPRESSION IMPRESSION: NO ACUTE OSSEOUS ABNORMALITY Polisher Apprentice: [facility] Transcribe Date/Time: Dec 03 2022 5:09P Dictated by : TYESHA MARX MD This examination was interpreted and the report reviewed and electronically signed by: TYESHA MARX MD on Dec 03 2022 5:09PM EST [facility] XR Sacrum and Coccyx 3 Views Ordered By: Ccf Provider on 12-03-2022 [facility] XR Sacrum and Coccyx 3 Views on 12-01-2022 Radiology Study observation (narrative) [facility] STREP A MOLECULAR (POC)on Procedural Control Valid [facility] Strep A (POCT) Negative Negative [facility] XR DIGIT GENERAL 3V FRONTAL/ LAT/OBL RIGHTon 03-16-2022 [facility] XR Finger - right AP and Lat eral and obliqueon 03-16-2022 IMPRESSION: Soft tissue swelling. There is no radiopaque foreign body. Polisher Apprentice: [facility] Transcribe Date/Time: Mar 16 2022 12:22P Dictated by : NATY GRAFF MD This examination was interpreted and the report reviewed and electronically signed by: NATY GRAFF MD on Mar 16 2022 12:25PM [facility] DIVISION OF RADIOLOGY * * [...] relevant examinations available for comparison within the [facility]. RESULT: AP, oblique and [...] relevant examinations available for comparison within the [facility]. RESULT: AP, oblique and lateral radiographs of the right fourth finger demonstrate focal soft tissue prominence/swelling along the antiradial the lower margin of the distal phalanx. There is no radiopaque foreign body. No underlying fracture. IMPRESSION IMPRESSION: Soft tissue swelling. There is no radiopaque foreign body. Polisher Apprentice: DARSHAN Transcribe Date/Time: Mar 16 2022 12:22P Dictated by : NATY GRAFF MD This examination was interpreted and the report reviewed and electronically signed by: NATY GRAFF MD on Mar 16 2022 12:25PM EST [facility] Radiology Study observation (narrative) [facility] XR Finger - right AP and Lat eral and obliqueOrdered By: Ccf Provider on 03-16-2022 [facility] Basic Metabolic Panelon 06-28 Anion gap [Moles/Vol] 0 mmol/L Low 3-13 [facility] Comment on above: Performed By: #### H EMDF, BMP3, QWAL2 #### [facility] [address] [place] [address] Calcium [Mass/Vol] 9.4 mg/dL Normal 8.4-10.4 [facility] Comment on above: Performed By: #### H EMDF, BMP3, QWAL2 #### [facility] [address] [place] [address] CO2 [Moles/Vol] 30 mmol/L Normal 22-30 [facility] Comment on above: Performed By: #### H EMDF, BMP3, QWAL2 #### [facility] [address] [place] [address] Creatinine [Mass/Vol] 0.70 mg/dL Normal 0.52-1.25 [facility] Comment on above: Performed By: #### H OSBALDO GARCIA, QWAL2 #### [facility] [address] [place] [address] eGFR OTHER > 90.0 Normal >60 [facility] Comment on above: Result Comment: KDIG [...] By: #### H OSBALDO GARCIA, QWAL2 #### [facility] [address] [place] [place] [address] GFR/1.73 sq M.predicted among blacks MDRD (S/P/Bld) [Vol rate/Area] mL/min/{1.73_m2} Normal >60 [facility] Comment on above: Performed By: #### H MIRA GARCIA3, QWAL2 #### [facility] [address] [place] [address] Glucose [Mass/Vol] 86 mg/dL Normal 70-100 [facility] Comment on above: Performed By: #### H MIRA GARCIA3, QWAL2 #### [facility] [address] [place] [address] Urea nitrogen [Mass/Vol] 2 mg/dL Low 9-20 [facility] Comment on above: Performed By: #### H MIRA GARCIA3, QWAL2 #### [facility] [address] [place] [address] Chloride [Moles/Vol] 109 mmol/L High 98-107 [facility] Comment on above: Performed By: #### H MIRA GARCIA3, QWAL2 #### [facility] [address] [place] [place] [address] Potassium [Moles/Vol] 3.2 mmol/L Low 3.5-5.1 [facility] Comment on above: Performed By: #### H MIRA GARCIA3, QWAL2 #### [facility] [address] [place] [address] Sodium [Moles/Vol] 139 mmol/L Normal 135-145 [facility] Comment on above: Performed By: #### H MIRA GARCIA3, QWAL2 #### [facility] [address] [place] [address] Anion gap [Moles/Vol] 0 mmol/L Low 3 - 13 mmol/L [facility] Calcium [Mass/Vol] 9.4 mg/dL 8.4 - 10. 4 mg/dL [facility] Chloride [Moles/Vol] 109 mmol/L High 98 - 10 7 mmol/L [facility] CO2 [Moles/Vol] 30 mmol/L 22 - 30 mmol/L [facility] Creatinine [Mass/Vol] 0.7 mg/dL 0.52 - 1.25 mg/dL [facility] EGFR IF NonAfrican South African >90.0 >60 mL/min [facility] Comment on above: KDIGO guidelines pro [...] [Mass/Vol] 86 mg/dL 70 - 100 mg/dL [facility] Interpretation and review of laboratory results Abnormal [...] - 10.7 10*3/uL [facility] Test Performed by [facility], [address] [place] [address] , [address] [facility] CT HEAD WO CONTRASTon 2021 [facility]: [id number] Tomography ACCESSION EXAM DATE/TIME PROCEDURE ORDERING PROVIDER [id number] 07/18/2021 18:[address] Head or Brain w/o MD MARIAELENA, ALISSON Sanz Contrast CPT code 19568 Reason For Exam (CT Head or Brain [...] MALAY Transcribed Date and Time: 07/18/2021 6:59 [facility] Thai Sprague MD - 07/18/2021 Patient Name: PAT MEDINA Computed Tomography ACCESSION EXAM DATE/TIME PROCEDURE ORDERING PROVIDER [id number] 07/18/2021 18:[address] Head or Brain w/o MD PEREA DOUGALAS R. Contrast CPT code 83646 Reason For Exam (CT Head or Brain [...] CT HEAD WO CONTRASTOrdered B y: Thai Sprague on 07-18-2021 [facility] Work Phone: CT Head or Brain w/o Contras ton 07-18-2021 CT Head or Brain w/o Contrast Patient Name: PAT MEDINA Computed Tomography ACCESSION EXAM DATE/TIME PROCEDURE ORDERING PROVIDER [id number] 07/18/2021 18:[address] Head or Brain w/o MD MARIAELENA, ALISSON R. Contrast CPT code 65617 Reason For Exam (CT Head or Brain [...] MALAY Transcribed Date and Time: 07/18/2021 6:[address] [facility] [address] MAXILLOFACIAL W CONTRASTo n 07-18-2021 Patient Name: PAT MEDINA Computed Tomography ACCESSION EXAM DATE/TIME PROCEDURE ORDERING PROVIDER [id number] 07/18/2021 19:[address] Maxillofacial funmilayo/ MD PEREA DOUGALAS R. Contrast CPT code 50041 Q9967 Reason For Exam (CT Maxillofacial w/ [...] MALAY Transcribed Date and Time: 07/18/2021 7:14 [facility] Thai Sprague MD - 07/18/2021 Patient Name: PAT MEDINA Computed Tomography ACCESSION EXAM DATE/TIME PROCEDURE ORDERING PROVIDER [id number] 07/18/2021 19:[address] Maxillofacial w/ MD PEREA DOUGALAS R. Contrast CPT code 84699 Q9967 Reason For Exam (CT Maxillofacial w/ [...] Maxillofacial w/ Contrast [facility]: [id number] Computed Tomography ACCESSION EXAM DATE/TIME PROCEDURE ORDERING PROVIDER [id number] 07/18/2021 19:[address] Maxillofacial w/ MD MARIAELENA, ALISSON Rodríguez. Contrast CPT code 03320 Q9967 Reason For Exam (CT Maxillofacial w/ [...] Transcribed Date and Time: 07/18/2021 7:14 Normal [facility] HCG Qualitative, Serumon hCG Qual Negative [facility] Comment on above: Reference Range: NEG ATIVE Effective 09/07/2019, the reference interval for the qualitative test has been updated. This test detects hCG at concentrations of 10 mIU/L or greater in serum. Hemogram w/ Autodiffon 07-18 Abs Baso Cnt 0.1 10*3/uL Normal 0.0-0.2 [facility] Comment on above: Performed By: #### H EMDF, BMP3, QWAL2 #### [facility] [address] [place] [address] Abs Neutrophile Cnt 5.0 10*3/uL Normal 1.8-7.0 [facility] Comment on above: Performed By: #### H EMDF, BMP3, QWAL2 #### [facility] [address] [place] [address] Basophils/100 WBC (Bld) 1.3 % Normal 0.0-2.0 [facility] Comment on above: Performed By: #### H EMDF, BMP3, QWAL2 #### [facility] [address] [place] [address] Eosinophils (Bld) [#/Vol] 0.1 10*3/uL Normal 0.0-0.5 [facility] Comment on above: Performed By: #### H EMDF, BMP3, QWAL2 #### [facility] [address] [place] [address] Eosinophils/100 WBC (Bld) 1.2 % Normal 1.0-6.0 [facility] Comment on above: Performed By: #### H EMDF, BMP3, QWAL2 #### [facility] [address] [facility] [place] [address] Erythrocyte distribution width (RBC) [Ratio] 13.2 % Normal 11.5-14.5 [facility] Comment on above: Performed By: #### H EMDF, BMP3, QWAL2 #### [facility] [address] [place] [address] Granulocytes/100 WBC (Bld) 54.7 % Normal 40.0-80.0 [facility] Comment on above: Performed By: #### H EMDF, BMP3, QWAL2 #### [facility] [address] [place] [address] Hematocrit (Bld) [Volume fraction] 37.5 % Normal 35.0-47.0 [facility] Comment on above: Performed By: #### H EMDF, BMP3, QWAL2 #### [facility] [address] [place] [address] Hemoglobin (Bld) [Mass/Vol] 13.1 g/dL Normal 11.7-16.0 [facility] Comment on above: Performed By: #### H EMDF, BMP3, QWAL2 #### [facility] [address] [place] [address] Lymphocytes (Bld) [#/Vol] 3.4 10*3/uL Normal 1.0-4.3 [facility] Comment on above: Performed By: #### H EMDF, BMP3, QWAL2 #### [address] [place] [address] Lymphocytes/100 WBC (Bld) 36.9 % Normal 20.0-40.0 [facility] Comment on above: Performed By: #### H EMDF, BMP3, QWAL2 #### [address] [address] MCH (RBC) [Entitic mass] 31.8 pg Normal 26.0-34.0 [facility] Comment on above: Performed By: #### H EMDF, BMP3, QWAL2 #### [facility] [address] [place] [address] MCHC 35.0 % Normal 32.0-36.0 [facility] Comment on above: Performed By: #### H EMDF, BMP3, QWAL2 #### [facility] [address] [place] [address] MCV (RBC) [Entitic vol] 90.7 fL Normal 79.0-98.0 [facility] Comment on above: Performed By: #### H EMDF, BMP3, QWAL2 #### [facility] [address] [place] [address] Monocytes (Bld) [#/Vol] 0.5 10*3/uL Normal 0.0-0.8 [facility] Comment on above: Performed By: #### H EMDF, BMP3, QWAL2 #### [facility] [address] [place] [address] Monocytes/100 WBC (Bld) 5.9 % Normal 2.0-10.0 [facility] Comment on above: Performed By: #### H EMDF, BMP3, QWAL2 #### [facility] [address] [place] [address] Platelet mean volume (Bld) [Entitic vol] 7.6 fL Normal 7.4-10.4 [facility] Comment on above: Performed By: #### H EMDF, BMP3, QWAL2 #### [facility] [address] [place] [address] Platelets (Bld) [#/Vol] 365 10*3/uL Normal 140-440 [facility] Comment on above: Performed By: #### H EMDF, BMP3, QWAL2 #### [facility] [address] [place] [address] RBC (Bld) [#/Vol] 4.13 10*6/uL Normal 3.80-5.20 [facility] Comment on above: Performed By: #### H EMDF, BMP3, QWAL2 #### [facility] [address] [place] [address] WBC (Bld) [#/Vol] 9.2 10*3/uL Normal 3.6-10.7 [facility] Comment on above: Performed By: #### H EMDF, BMP3, QWAL2 #### [facility] [address] [place] [address] No Panel Informationon 07-18 Test Performed by [facility], [address] , [place], [place] [id number] [place] [address] [facility] Radiology Study observation (narrative) [facility] Work Phone: hCG Qual Pregon 07-18-2021 hCG Qual Preg Negative Normal [facility] Comment on above: Result Comment: Anjana tellez Range: NEGATIVE Effective 09/07/2019, the reference interval for the qualitative test has been updated. This test detects hCG at concentrations of 10 mIU/L or greater in serum. Performed By: #### H EMDF, BMP3, QWAL2 #### [facility] [address] [place] [address] XR Chest PA and Lateralon IMPRESSION: No acute radiographic abnormality. Polisher Apprentice: DARSHAN Transcribe Date/Time: Mar 09 2021 10:00A Dictated by : ALEX MUNIZ MD This examination was interpreted and the report reviewed and electronically signed by: ALEX MUNIZ MD on Mar 09 2021 10:01AM [facility] DIVISION OF RADIOLOGY * * [...] soft tissues: Unremarkable. DIVISION OF RADIOLOGY Provider, [facility] - 03/09/2021 * * *Final Report* * [...] Unremarkable. IMPRESSION IMPRESSION: No acute radiographic abnormality. Polisher Apprentice: PSCB Transcribe Date/Time: Mar 09 2021 10:00A Dictated by : ALEX MUNIZ MD This examination was interpreted and the report reviewed and electronically signed by: ALEX MUNIZ MD on Mar 09 2021 10:01AM EST [facility] Radiology Study observation (narrative) [facility] XR Chest PA and LateralOrder ed By: Ccf Provider on 03-09-2021 [facility] Basic Panelon 07-02-2018 Anion gap 3 molar conc 8 mmol/L Normal 8-20 [facility] Comment on above: Performed By: #### L P8 ####[place] [address] Calcium mass conc 8.9 mg/dL Normal 8.5-10.1 [facility] Comment on above: Performed By: #### L P8 ####[place] [address] Chloride molar conc 104 mmol/L Normal 98-107 [facility] Comment on above: Performed By: #### L P8 ####[place] [address] CO2 molar conc 27 mmol/L Normal 21-32 [facility] Comment on above: Performed By: #### L P8 ####[address] [address] Creatinine mass conc 0.87 mg/dL Normal 0.51-0.95 [facility] Comment on above: Performed By: #### L P8 ####[address] [address] Glucose mass conc 89 mg/dL Normal 70-99 [facility] Comment on above: Performed By: #### L P8 ####[place] [address] Potassium molar conc 3.5 mmol/L Normal 3.5-5.1 [facility] Comment on above: Performed By: #### L P8 ####[place] [address] Sodium molar conc 136 mmol/L Normal 136-145 [facility] Comment on above: Performed By: #### L P8 ####[place] [address] Urea nitrogen mass conc (Bld) 11 mg/dL Normal 7-25 [facility] Comment on above: Performed By: #### L P8 ####[place] [address] Urea nitrogen/Creatinine mass ratio 13 mg/mg Normal 10-20 [facility] Comment on above: Performed By: #### L P8 ####[place] [address] CPKon 07-02-2018 CPK 539 U/L High 26-192 [facility] Comment on above: Performed By: #### L CK ####[place] [address] Cult Urineon 07-02-2018 Cult Urine Test performed at [facility] No growth Normal [facility] Comment on above: Performed By: #### C _URI ####[place] [address] Hemogram/Manual Diffon 07-02 Abs. Baso 0.00 thou/cmm Normal 0.00-0.08 [facility] Comment on above: Performed By: #### L MCBD ####[place] [address] Abs. Eosin 0.14 thou/cmm Normal 0.00-0.41 [facility] Comment on above: Performed By: #### L MCBD ####[place] [address] Abs. Lymph 3.15 thou/cmm Normal 1.50-3.65 [facility] Comment on above: Performed By: #### L MCBD ####[place] [address] Abs. Sublette 1.10 thou/cmm High 0.20-1.00 [facility] Comment on above: Performed By: #### L MCBD ####[facility] [place] [address] Abs. Neut (ANC) 9.31 thou/cmm High 3.00-5.67 [facility] Comment on above: Performed By: #### L MCBD ####[place] [address] Basophil 0.0 % Normal [facility] Comment on above: Performed By: #### L MCBD ####[place] [address] Diff Type Manual Diff Normal [facility] Comment on above: Performed By: #### L MCBD ####[place] [address] Eosinophil 1.0 % Normal [facility] Comment on above: Performed By: #### L MCBD ####[place] [address] Lymphocyte 23.0 % Normal [facility] Comment on above: Performed By: #### L MCBD ####[place] [address] Monocyte 8.0 % Normal [facility] Comment on above: Performed By: #### L MCBD ####[place] [address] Platelet Estimate Normal Normal [facility] Comment on above: Performed By: #### L MCBD ####[place] [address] RBC Morphology Normal Normal [facility] Comment on above: Performed By: #### L MCBD ####[place] [address] Seg Neutrophil 68.0 % Normal [facility] Comment on above: Performed By: #### L MCBD ####[place] [address] Erythrocyte distribution width Auto Ratio (RBC) 12.0 % Normal 11.5-15.9 [facility] Comment on above: Performed By: #### L MCBD ####[place] [address] Hct 39.1 % Normal 37.0-47.0 [facility] Comment on above: Performed By: #### L MCBD ####[facility] [place] [address] Hgb 13.5 g/dL Normal 12.0-16.0 [facility] Comment on above: Performed By: #### L MCBD ####[place] [address] MCH 32.1 pg High 27.0-31.0 [facility] Comment on above: Performed By: #### L MCBD ####[place] [address] MCHC 34.5 % Normal 32.0-36.0 [facility] Comment on above: Performed By: #### L MCBD ####[place] [address] MCV 92.9 fl Normal 81.0-99.0 [facility] Comment on above: Performed By: #### L MCBD ####[place] [address] MPV 10.3 fl Normal 7.1-10.5 [facility] Comment on above: Performed By: #### L MCBD ####[place] [address] Platelet 256 thou/cmm Normal 150-400 [facility] Comment on above: Performed By: #### L MCBD ####[place] [address] RBC Test strip #/vol (U) 4.21 mil/cmm Normal 4.20-5.40 [facility] Comment on above: Performed By: #### L MCBD ####[place] [address] WBC 13.7 thou/cmm High 4.8-10.8 [facility] Comment on above: Performed By: #### L MCBD ####[place] [address] MDRD eGFRon 07-02-2018 GFR/1.73 sq M predicted among non-blacks MDRD vol rate/area (S/P/Bld) mL/min/{1.73_m2} Normal >60mL/min/1. 73m2 [facility] Comment on above: Result Comment: If t he patient is , multiply the result by 1.210. Performed By: #### L GFR ####[place] [address] Rapid Influenza A/Bon 2018 Rapid Influenza A/B See below Normal Negative [facility] Comment on above: Result Comment: Nega tive for influenza A and B. Performed By: #### L RFLU ####[place] [address] TSHon 07-02-2018 Thyrotropin Qn 1.96 uIU/mL Normal 0.34-4.82 [facility] Comment on above: Performed By: #### L TSH ####[place] [address] Urinalysis Routineon 019 Appearance Nom (U) 1+ (HAZY) Normal [facility] Comment on above: Performed By: #### L URIN ####[place] [address] Bacteria LM.HPF #/area (Urine sed) MANY Abnormal None [facility] Comment on above: Performed By: #### L URIN ####[place] [address] Bilirubin Urine Negative Normal Negative [facility] Comment on above: Performed By: #### L URIN ####[place] [address] Color Nom (U) DARK YELLOW Normal [facility] Comment on above: Performed By: #### L URIN ####[place] [address] Ep Cells Urine 13-20 Normal 0-5 [facility] Comment on above: Performed By: #### L URIN ####[place] [address] Glucose Ql (U) Negative Normal Negative [facility] Comment on above: Performed By: #### L URIN ####[place] [address] Hemoglobin,Urine Negative Normal Negative [facility] Comment on above: Performed By: #### L URIN ####[place] [address] Ketone Urine Negative Normal Negative [facility] Comment on above: Performed By: #### L URIN ####[place] [address] Leukocytes Esterase Negative Normal Negative [facility] Comment on above: Performed By: #### L URIN ####[place] [address] Nitrites Urine Negative Normal Negative [facility] Comment on above: Performed By: #### L URIN ####[place] [address] pH Test strip (U) 6.0 [pH] Normal 5.0-8.0 [facility] Comment on above: Performed By: #### L URIN ####[place] [address] Protein Urine Negative Normal Negative [facility] Comment on above: Performed By: #### L URIN ####[place] [address] RBC LM.HPF #/area (Urine sed) NONE Normal 0-3 [facility] Comment on above: Performed By: #### L URIN ####[place] [address] Specific Prosperity, Ur 1.025 Normal 1.005-1.030 [facility] Comment on above: Performed By: #### L URIN ####[place] [address] Urobilinogen,Ur 0.2 EU/dL Normal 0.0-1.0 [facility] Comment on above: Performed By: #### L URIN ####[address] [place] [address] WBC LM.HPF #/area (Urine sed) NONE Normal 0-5 [facility] Comment on above: Performed By: #### L URIN ####[facility] [place], [place] [address] FOOT 3V AP/LAT/OBL LEFTon FOOT 3V AP/LAT/OBL LEFT Performed at [facility] APPROVED BY: Jonh Landry MD EXAM TITLE: THREE VIEWS OF THE LEFT FOOT DATE:01/30/2018 12:40 COMPARISON: None. CLINICAL INDICATION/HISTORY: Pain and swelling TECHNIQUE: AP, lateral and oblique images FINDINGS: No fracture or dislocation is seen. Osseous relationships are maintained on this nonweightbearing study. No suspicious osseous lesions. Joint spaces are preserved. IMPRESSION: Negative foot x-ray Normal [facility] CT ABDOMEN AND PELVIS W/O CO NTRASTon 01-23-2018 CT ABDOMEN AND PELVIS W/O CONTRAST Performed at [facility] APPROVED BY: Adry Cabrera MD [...] are no signs of appendicitis otherwise. Normal [facility] Chlam/GC-DNA Amplifiedon Chlam/GC-DNA Amplified [facility]ydia trachomatis DNA NOT DETECTEDNeisseria gonorrhoeae DNA NOT DETECTEDReference range NOT DETECTEDMethod: Strand Displacement Amplification-BD ProbeTec AssayComment: A negative result does not precludeC.trachomatis or N. gonorrhoeae infection becauseresults are dependent on adequate specimen collection,absence of inhibitors, and sufficient DNA to be detected. Normal [facility] Comment on above: Performed By: #### C TGCA ####[place] [address] Comprehensive Panelon 2017 Albumin mass conc 4.0 g/dL Normal 3.4-5.0 [facility] Comment on above: Performed By: #### L P14 ####[place] [address] ALP enzyme act/vol 63 U/L Normal 46-116 [facility] Comment on above: Performed By: #### L P14 ####[place] [address] ALT-SGPT Blood 41 U/L Normal 14-63 [facility] Comment on above: Performed By: #### L P14 ####[place] [address] Anion gap 3 molar conc 12 mmol/L Normal 8-20 [facility] Comment on above: Performed By: #### L P14 ####[place] [address] AST-SGOT Blood 29 U/L Normal 15-37 [facility] Comment on above: Performed By: #### L P14 ####[place] [address] Bilirubin Ql (U) 0.6 mg/dL Normal 0.2-1.0 [facility] Comment on above: Performed By: #### L P14 ####[place] [address] Calcium mass conc 8.9 mg/dL Normal 8.5-10.1 [facility] Comment on above: Performed By: #### L P14 ####[facility] [place], [place] [address] Chloride molar conc 93 mmol/L Low 98-107 [facility] Comment on above: Performed By: #### L P14 ####[facility] [place], [place] [address] CO2 molar conc 24 mmol/L Normal 21-32 [facility] Comment on above: Performed By: #### L P14 ####[facility] [place], [place] [address] Creatinine mass conc 0.69 mg/dL Normal 0.51-0.95 [facility] Comment on above: Performed By: #### L P14 ####[address] [address] Glucose mass conc 69 mg/dL Low 70-99 [facility] Comment on above: Performed By: #### L P14 ####[address] [address] Potassium molar conc 3.7 mmol/L Normal 3.5-5.1 [facility] Comment on above: Performed By: #### L P14 ####[address] [address] Protein mass conc 7.5 g/dL Normal 6.4-8.2 [facility] Comment on above: Performed By: #### L P14 ####[facility] [place], [place] [address] Sodium molar conc 125 mmol/L Low 136-145 [facility] Comment on above: Performed By: #### L P14 ####[facility] [place], [place] [address] Urea nitrogen mass conc (Bld) 7 mg/dL Normal 7-25 [facility] Comment on above: Performed By: #### L P14 ####[address] [address] Urea nitrogen/Creatinine mass ratio 10 mg/mg Normal 10-20 [facility] Comment on above: Performed By: #### L P14 ####[facility] [place] [address] Hemogram/Manual Diffon 01-23 Abs. Baso 0.17 thou/cmm High 0.00-0.08 [facility] Comment on above: Performed By: #### L MCBD ####[place] [address] Abs. Eosin 0.00 thou/cmm Normal 0.00-0.41 [facility] Comment on above: Performed By: #### L MCBD ####[place] [address] Abs. Lymph 2.22 thou/cmm Normal 1.50-3.65 [facility] Comment on above: Performed By: #### L MCBD ####[place] [address] Abs. Sublette 2.05 thou/cmm High 0.20-1.00 [facility] Comment on above: Performed By: #### L MCBD ####[place] [address] Abs. Neut (ANC) 12.66 thou/cmm High 3.00-5.67 [facility] Comment on above: Performed By: #### L MCBD ####[place] [address] Basophil 1.0 % Normal [facility] Comment on above: Performed By: #### L MCBD ####[place] [address] Eosinophil 0.0 % Normal [facility] Comment on above: Performed By: #### L MCBD ####[place] [address] Lymphocyte 13.0 % Normal [facility] Comment on above: Performed By: #### L MCBD ####[place] [address] Monocyte 12.0 % Normal [facility] Comment on above: Performed By: #### L MCBD ####[facility] [place] [address] Platelet Estimate Normal Normal [facility] Comment on above: Performed By: #### L MCBD ####[place] [address] RBC Morphology Normal Normal [facility] Comment on above: Performed By: #### L MCBD ####[place] [address] Seg Neutrophil 74.0 % Normal [facility] Comment on above: Performed By: #### L MCBD ####[place] [address] Diff Type Manual Diff Normal [facility] Comment on above: Performed By: #### L MCBD ####[place] [address] Erythrocyte distribution width Auto Ratio (RBC) 11.6 % Normal 11.5-15.9 [facility] Comment on above: Performed By: #### L MCBD ####[place] [address] Hct 40.8 % Normal 37.0-47.0 [facility] Comment on above: Performed By: #### L MCBD ####[place] [address] Hgb 14.2 g/dL Normal 12.0-16.0 [facility] Comment on above: Performed By: #### L MCBD ####[place] [address] MCH 31.8 pg High 27.0-31.0 [facility] Comment on above: Performed By: #### L MCBD ####[place] [address] MCHC 34.8 % Normal 32.0-36.0 [facility] Comment on above: Performed By: #### L MCBD ####[place] [address] MCV 91.3 fl Normal 81.0-99.0 [facility] Comment on above: Performed By: #### L MCBD ####[facility] [place] [address] MPV 10.0 fl Normal 7.1-10.5 [facility] Comment on above: Performed By: #### L MCBD ####[facility] [place] [address] Platelet 263 thou/cmm Normal 150-400 [facility] Comment on above: Performed By: #### L MCBD ####[place] [address] RBC Test strip #/vol (U) 4.47 mil/cmm Normal 4.20-5.40 [facility] Comment on above: Performed By: #### L MCBD ####[place] [address] WBC 17.1 thou/cmm High 4.8-10.8 [facility] Comment on above: Performed By: #### L MCBD ####[place] [address] MDRD eGFRon 01-23-2018 GFR/1.73 sq M predicted among non-blacks MDRD vol rate/area (S/P/Bld) mL/min/{1.73_m2} Normal >60mL/min/1. 73m2 [facility] Comment on above: Result Comment: If t he patient is , multiply the result by 1.210. Performed By: #### L GFR ####[place] [address] Macroscopic Urinalysison Appearance Nom (U) CLEAR Normal [facility] Comment on above: Performed By: #### L MACU ####[place] [address] Bilirubin Urine Negative Normal Negative [facility] Comment on above: Performed By: #### L MACU ####[place] [address] Color Nom (U) STRAW Normal [facility] Comment on above: Performed By: #### L MACU ####[place] [id number] Glucose Ql (U) Negative Normal Negative [facility] Comment on above: Performed By: #### L MACU ####[facility] [place] [address] Hemoglobin,Urine Negative Normal Negative [facility] Comment on above: Performed By: #### L MACU ####[place] [address] Ketone Urine Negative Normal Negative [facility] Comment on above: Performed By: #### L MACU ####[place] [address] Leukocytes Esterase Negative Normal Negative [facility] Comment on above: Performed By: #### L MACU ####[place] [address] Nitrites Urine Negative Normal Negative [facility] Comment on above: Performed By: #### L MACU ####[place] [address] pH Test strip (U) 6.5 [pH] Normal 5.0-8.0 [facility] Comment on above: Performed By: #### L MACU ####[place] [address] Protein Urine Negative Normal Negative [facility] Comment on above: Performed By: #### L MACU ####[place] [address] Specific [place], Ur <=1.005 Normal 1.005-1.030 [facility] Comment on above: Performed By: #### L MACU ####[place] [address] Urobilinogen,Ur 0.2 EU/dL Normal 0.0-1.0 [facility] Comment on above: Performed By: #### L MACU ####[place] [address] US PELVIS NON-OB COMPLETEon 01-23-2018 US PELVIS NON-OB COMPLETE Performed at [facility] APPROVED BY: Adry Cabrera MD [...] uterine fibroids and small uterine cyst. Normal [facility] US TRANSVAGINALon 01-23-2018 US TRANSVAGINAL Performed at [facility] APPROVED BY: Adry Cabrera MD [...] uterine fibroids and small uterine cyst. Normal [facility] Vital Signs Date Time Vital Sign Value Performing Clinician Halina lyles 03-07-2025 09:04-0400 Body height 165.1 cm Stephy Simpson MD Work Phone: [facility] 03-07-2025 09:04-0400 Body mass index (BMI) [Ratio] 20.14 kg/m2 Stephy Simpson MD Work Phone: [facility] 03-07-2025 09:04-0400 Body weight 54.88 kg Stephy Simpson MD Work Phone: [facility] 03-07-2025 09:04-0400 Diastolic blood pressure 74 mm[Hg] Stephy Simpson MD Work Phone: [facility] 03-07-2025 09:04-0400 Heart rate 80 /min Stephy Simpson MD Work Phone: [facility] 03-07-2025 09:04-0400 Respiratory rate 14 /min Stephy Simpson MD Work Phone: [facility] 03-07-2025 09:04-0400 SaO2% (BldA) [Mass fraction] 96 % Stephy Simpson MD Work Phone: [facility] 03-07-2025 09:04-0400 Systolic blood pressure 100 mm[Hg] Stephy Simpson MD Work Phone: [facility] 02-26-2025 15:00-0400 Body mass index (BMI) [Ratio] 21.13 kg/m2 Stephy Simpson MD Work Phone: [facility] 02-26-2025 15:00-0400 Body weight 57.61 kg Stephy Simpson MD Work Phone: [facility] 02-26-2025 15:00-0400 Diastolic blood pressure 68 mm[Hg] Stephy Simpson MD Work Phone: [facility] 02-26-2025 15:00-0400 Systolic blood pressure 98 mm[Hg] Stephy Simpson MD Work Phone: [facility] 02-04-2025 16:58-0400 Body mass index (BMI) [Ratio] 21.2 kg/m2 Maile Norman MD Work Phone: [facility] 02-04-2025 16:58-0400 Body weight 57.8 kg Maile Norman MD Work Phone: [facility] 02-04-2025 16:58-0400 Diastolic blood pressure 75 mm[Hg] Maile Norman MD Work Phone: [facility] 02-04-2025 16:58-0400 Heart rate 89 /min Maile Norman MD Work Phone: [facility] 02-04-2025 16:58-0400 Respiratory rate 16 /min Maile Norman MD Work Phone: [facility] 02-04-2025 16:58-0400 Systolic blood pressure 126 mm[Hg] Maile Norman MD Work Phone: [facility] 01-14-2025 10:31-0400 Body mass index (BMI) [Ratio] 20.63 kg/m2 Rody Bui OUTREACH NURSE.CNM Work Phone: [facility] 01-14-2025 10:31-0400 Body weight 56.25 kg Rody Bui OUTREACH NURSE.CNM Work Phone: [facility] 01-14-2025 10:31-0400 Diastolic blood pressure 76 mm[Hg] Rody Bui OUTREACH NURSE.CNM Work Phone: [facility] 01-14-2025 10:31-0400 Systolic blood pressure 98 mm[Hg] Rody Bui OUTREACH NURSE.CNM Work Phone: [facility] 01-09-2025 15:47-0400 Body mass index (BMI) [Ratio] 21.42 kg/m2 Galo Bernal OUTREACH NURSE.BLUEBERRY GROWER Work Phone: [facility] 01-09-2025 15:47-0400 Body temperature 97.7 [degF] Galo Pendlebury OUTREACH NURSE.BLUEBERRY GROWER Work Phone: [facility] 01-09-2025 15:47-0400 Body weight 58.4 kg Galolucia Carneybury OUTREACH NURSE.BL[employer]BERRY GROWER Work Phone: [facility] 01-09-2025 15:47-0400 Diastolic blood pressure 78 mm[Hg] Galo Pendlebury OUTREACH NURSE.BLUEBERRY GROWER Work Phone: [facility] 01-09-2025 15:47-0400 Heart rate 99 /min Galo Pendlebury OUTREACH NURSE.BLUEBERRY GROWER Work Phone: [facility] 01-09-2025 15:47-0400 Respiratory rate 20 /min Galo Pendlebury OUTREACH NURSE.BLUEBERRY GROWER Work Phone: [facility] 01-09-2025 15:47-0400 SaO2% (BldA) [Mass fraction] 95 % Galo Carneybury OUTREACH NURSE.BLUEBERRY GROWER Work Phone: [facility] 01-09-2025 15:47-0400 Systolic blood pressure 124 mm[Hg] Galo Pendlebury OUTREACH NURSE.BLUEBERRY GROWER Work Phone: [facility] 12-24-2024 11:34-0400 Diastolic blood pressure 90 mm[Hg] Sam Teresa OUTREACH NURSE.[employer]BERRY [employer]OWER Work Phone: [facility] 12-24-2024 11:34-0400 Systolic blood pressure 128 mm[Hg] Sam Teresa OUTREACH NURSE.BLUEBERRY GROWER Work Phone: [facility] 12-24-2024 11:33-0400 Body mass index (BMI) [Ratio] 20.98 kg/m2 Sam Teresa OUTREACH NURSE.BLUEBERRY GROWER Work Phone: [facility] 12-24-2024 11:33-0400 Body weight 57.2 kg Sam Teresa OUTREACH NURSE.BLUEBERRY GROWER Work Phone: [facility] 12-24-2024 11:33-0400 Heart rate 103 /min Sam Teresa OUTREACH NURSE.BLUEBERRY GROWER Work Phone: [facility] 12-24-2024 11:33-0400 SaO2% (BldA) [Mass fraction] 93 % Sam Teresa OUTREACH NURSE.BLUEBERRY GROWER Work Phone: [facility] 12-03-2024 10:53-0400 Diastolic blood pressure 65 mm[Hg] Sam Teresa OUTREACH NURSE.BLUEBERRY GROWER Work Phone: [facility] 12-03-2024 10:53-0400 Heart rate 79 /min Sam Teresa OUTREACH NURSE.BLUEBERRY GROWER Work Phone: [facility] 12-03-2024 10:53-0400 SaO2% (BldA) [Mass fraction] 98 % Sam Teresa OUTREACH NURSE.BLUEBERRY GROWER Work Phone: [facility] 12-03-2024 10:53-0400 Systolic blood pressure 111 mm[Hg] Sam Teresa OUTREACH NURSE.BLUEBERRY GROWER Work Phone: [facility] 11-28-2024 11:12-0400 Body mass index (BMI) [Ratio] 20.73 kg/m2 Sam Teresa OUTREACH NURSE.BLUEBERRY GROWER Work Phone: [facility] 11-28-2024 11:12-0400 Body weight 56.5 kg Sam Teresa OUTREACH NURSE.BLUEBERRY GROWER Work Phone: [facility] 11-28-2024 11:12-0400 Diastolic blood pressure 74 mm[Hg] Sam Teresa OUTREACH NURSE.BLUEBERRY GROWER Work Phone: [facility] 11-28-2024 11:12-0400 Heart rate 117 /min Sam Teresa OUTREACH NURSE.BLUEBERRY GROWER Work Phone: [facility] 11-28-2024 11:12-0400 SaO2% (BldA) [Mass fraction] 98 % Sam Teresa OUTREACH NURSE.BLUEBERRY GROWER Work Phone: [facility] 11-28-2024 11:12-0400 Systolic blood pressure 110 mm[Hg] Sam Teresa OUTREACH NURSE.BLUEBERRY GROWER Work Phone: [facility] 11-22-2024 09:22-0400 Body mass index (BMI) [Ratio] 21.06 kg/m2 Karen Mckee OUTREACH NURSE.DRIER TENDER [employer]APHTH[employer]ENE Work Phone: [facility] 11-22-2024 09:22-0400 Body weight 57.4 kg Karen Mckee OUTREACH NURSE.DRIER TENDER [employer] Work Phone: [facility] 11-22-2024 09:22-0400 Diastolic blood pressure 73 mm[Hg] Karen Mckee OUTREACH NURSE.DRIER TENDER [employer]APHTHALENE Work Phone: [facility] 11-22-2024 09:22-0400 Heart rate 92 /min Karen Mckee OUTREACH NURSE.DRIER TENDER [employer]TH[employer]ENE Work Phone: [facility] 11-22-2024 09:22-0400 Respiratory rate 16 /min Karen Mckee OUTREACH NURSE.DRIER TENDER NAPHTH[employer]ENE Work Phone: [facility] 11-22-2024 09:22-0400 Systolic blood pressure 104 mm[Hg] Karen Mckee OUTREACH NURSE.DRIER TENDER NAPHTHALENE Work Phone: [facility] 11-02-2024 09:50-0400 Body mass index (BMI) [Ratio] 21.31 kg/m2 Sam Teresa OUTREACH NURSE.BLUEBERRY GROWER Work Phone: [facility] 11-02-2024 09:50-0400 Body weight 58.1 kg Sam Teresa OUTREACH NURSE.BLUEBERRY GROWER Work Phone: [facility] 11-02-2024 09:50-0400 Diastolic blood pressure 79 mm[Hg] Sam Teresa OUTREACH NURSE.BLUEBERRY GROWER Work Phone: [facility] 11-02-2024 09:50-0400 Heart rate 102 /min Sam Teresa OUTREACH NURSE.BLUEBERRY GROWER Work Phone: [facility] 11-02-2024 09:50-0400 SaO2% (BldA) [Mass fraction] 97 % Sam Teresa OUTREACH NURSE.BLUEBERRY GROWER Work Phone: [facility] 11-02-2024 09:50-0400 Systolic blood pressure 112 mm[Hg] Sam Teresa OUTREACH NURSE.BLUEBERRY GROWER Work Phone: [facility] 09-28-2024 09:05-0400 Body height 165.1 cm [facility] 1 Work Phone: [facility] 09-28-2024 09:05-0400 Body mass index (BMI) [Ratio] 21.13 kg/m2 [facility] 1 Work Phone: [facility] 09-28-2024 09:05-0400 Body temperature 97.11 [degF] [facility] 1 Work Phone: [facility] 09-28-2024 09:05-0400 Body weight 57.61 kg [facility] 1 Work Phone: [facility] 09-28-2024 09:05-0400 Diastolic blood pressure 78 mm[Hg] [facility] 1 Work Phone: [facility] 09-28-2024 09:05-0400 Heart rate 85 /min [facility] 1 Work Phone: [facility] 09-28-2024 09:05-0400 Respiratory rate 14 /min [facility] 1 Work Phone: [facility] 09-28-2024 09:05-0400 SaO2% (BldA) [Mass fraction] 98 % [facility] 1 Work Phone: [facility] 09-28-2024 09:05-0400 Systolic blood pressure 102 mm[Hg] [facility] 1 Work Phone: [facility] 09-21-2024 08:53-0400 Body mass index (BMI) [Ratio] 20.1 kg/m2 Sam Teresa OUTREACH NURSE.BLUEBERRY GROWER Work Phone: [facility] 09-21-2024 08:53-0400 Body weight 56.5 kg Sam Teresa OUTREACH NURSE.BLUEBERRY GROWER Work Phone: [facility] 09-21-2024 08:53-0400 Diastolic blood pressure 70 mm[Hg] Sam Teresa OUTREACH NURSE.BLUEBERRY GROWER Work Phone: [facility] 09-21-2024 08:53-0400 Heart rate 98 /min Sam Teresa OUTREACH NURSE.BLUEBERRY GROWER Work Phone: [facility] 09-21-2024 08:53-0400 SaO2% (BldA) [Mass fraction] 98 % Sam Teresa OUTREACH NURSE.BLUEBERRY GROWER Work Phone: [facility] 09-21-2024 08:53-0400 Systolic blood pressure 110 mm[Hg] Sam Khan OUTREACH NURSE.BLUEBERRY GROWER Work Phone: [facility] 07-31-2024 10:37-0500 Body mass index (BMI) [Ratio] 19.93 kg/m2 Maile Norman MD Work Phone: [facility] 07-31-2024 10:37-0500 Body weight 56 kg Maile Norman MD Work Phone: [facility] 07-31-2024 10:37-0500 Diastolic blood pressure 76 mm[Hg] Maile Norman MD Work Phone: [facility] 07-31-2024 10:37-0500 Heart rate 88 /min Maile Norman MD Work Phone: [facility] 07-31-2024 10:37-0500 SaO2% (BldA) [Mass fraction] 98 % Maile Norman MD Work Phone: [facility] 07-31-2024 10:37-0500 Systolic blood pressure 126 mm[Hg] Maile Norman MD Work Phone: [facility] 07-13-2024 10:39-0500 Body mass index (BMI) [Ratio] 21.35 kg/m2 Karen Holleys OUTREACH NURSE.DRIER TENDER [employer]TH[employer]ENE Work Phone: [facility] 07-13-2024 10:39-0500 Body weight 60 kg Karen Holleys OUTREACH NURSE.DRIER TENDER [employer] Work Phone: [facility] 07-13-2024 10:39-0500 Diastolic blood pressure 85 mm[Hg] Karen Mckee OUTREACH NURSE.DRIER TENDER N[employer]THALENE Work Phone: [facility] 07-13-2024 10:39-0500 Heart rate 84 /min Karen Holleys OUTREACH NURSE.DRIER TENDER [employer]ENE Work Phone: [facility] 07-13-2024 10:39-0500 Respiratory rate 16 /min Karen Mckee OUTREACH NURSE.DRIER TENDER N[employer]THALENE Work Phone: [facility] 07-13-2024 10:39-0500 Systolic blood pressure 122 mm[Hg] Karen Mckee OUTREACH NURSE.DRIER TENDER NAPHTHALENE Work Phone: [facility] 07-11-2024 09:37-0500 Body height 167.6 cm Maile Norman MD Work Phone: [facility] 07-11-2024 09:37-0500 Body mass index (BMI) [Ratio] 20.32 kg/m2 Maile Norman MD Work Phone: [facility] 07-11-2024 09:37-0500 Body weight 57.1 kg Maile Norman MD Work Phone: [facility] 07-11-2024 09:37-0500 Diastolic blood pressure 68 mm[Hg] Maile Norman MD Work Phone: [facility] 07-11-2024 09:37-0500 Heart rate 90 /min Maile Norman MD Work Phone: [facility] 07-11-2024 09:37-0500 SaO2% (BldA) [Mass fraction] 98 % Maile Norman MD Work Phone: [facility] 07-11-2024 09:37-0500 Systolic blood pressure 90 mm[Hg] Maile Norman MD Work Phone: [facility] 07-09-2024 07:08-0500 Body height 165.1 cm Cecile Harshad OUTREACH NURSE.BLUEBERRY GROWER Work Phone: [facility] 07-09-2024 07:08-0500 Body mass index (BMI) [Ratio] 20.97 kg/m2 Cecile Harshad OUTREACH NURSE.BLUEBERRY GROWER Work Phone: [facility] 07-09-2024 07:08-0500 Body weight 57.15 kg Cecile Harshad OUTREACH NURSE.BLUEBERRY GROWER Work Phone: [facility] 07-09-2024 07:08-0500 Diastolic blood pressure 62 mm[Hg] Cecile [place] OUTREACH NURSE.BLUEBERRY GROWER Work Phone: [facility] 07-09-2024 07:08-0500 Systolic blood pressure 110 mm[Hg] Cecile Patricia OUTREACH NURSE.BLUEBERRY GROWER Work Phone: [facility] 05-23-2024 07:28-0500 Body mass index (BMI) [Ratio] 20.47 kg/m2 [facility].BLUEBERRY GROWER Work Phone: [facility] 05-23-2024 07:28-0500 Body temperature 97.59 [degF] Galo Colvinstefan OUTREACH NURSE.BLUEBERRY GROWER Work Phone: [facility] 05-23-2024 07:28-0500 Body weight 55.8 kg Galo Colvinstefan OUTREACH NURSE.BLUEBERRY GROWER Work Phone: [facility] 05-23-2024 07:28-0500 Diastolic blood pressure 82 mm[Hg] [facility].BLUEBERRY GROWER Work Phone: [facility] 05-23-2024 07:28-0500 Heart rate 96 /min Galo Bernal OUTREACH NURSE.BLUEBERRY GROWER Work Phone: [facility] 05-23-2024 07:28-0500 Respiratory rate 18 /min Galo Colvinstefan OUTREACH NURSE.BLUEBERRY GROWER Work Phone: [facility] 05-23-2024 07:28-0500 SaO2% (BldA) [Mass fraction] 96 % [facility].BLUEBERRY GROWER Work Phone: [facility] 05-23-2024 07:28-0500 Systolic blood pressure 122 mm[Hg] Galo Bernal OUTREACH NURSE.BLUEBERRY GROWER Work Phone: [facility] 05-15-2024 12:59-0500 Body mass index (BMI) [Ratio] 20.58 kg/m2 Anny Hutchins OUTREACH NURSE.BL[employer]BERRY GROWER Work Phone: [facility] 05-15-2024 12:59-0500 Body temperature 98.2 [degF] Anny Hutchins OUTREACH NURSE.BL[employer]BERRY GROWER Work Phone: [facility] 05-15-2024 12:59-0500 Body weight 56.1 kg Anny Cuong OUTREACH NURSE.BL[employer]BERRY GROWER Work Phone: [facility] 05-15-2024 12:59-0500 Diastolic blood pressure 84 mm[Hg] Anny Cuong OUTREACH NURSE.BLUEBERRY GROWER Work Phone: [facility] 05-15-2024 12:59-0500 Heart rate 88 /min Anny Cuong OUTREACH NURSE.BLUEBERRY GROWER Work Phone: [facility] 05-15-2024 12:59-0500 Respiratory rate 18 /min Anny Cuong OUTREACH NURSE.BLUEBERRY GROWER Work Phone: [facility] 05-15-2024 12:59-0500 Systolic blood pressure 122 mm[Hg] Anny Cuong OUTREACH NURSE.BLUEBERRY GROWER Work Phone: [facility] 05-11-2024 08:43-0500 Body mass index (BMI) [Ratio] 20.4 kg/m2 Yodit Saxena OUTREACH NURSE.BLUEBERRY GROWER Work Phone: [facility] 05-11-2024 08:43-0500 Body temperature 97.59 [degF] Yodit Saxena OUTREACH NURSE.[employer]BERRY GROWER Work Phone: [facility] 05-11-2024 08:43-0500 Body weight 55.6 kg Yodit Saxena OUTREACH NURSE.BL[employer]BERRY GROWER Work Phone: [facility] 05-11-2024 08:43-0500 Diastolic blood pressure 88 mm[Hg] Yodit Saxena OUTREACH NURSE.BLUEBERRY GROWER Work Phone: [facility] 05-11-2024 08:43-0500 Heart rate 104 /min Yodit Saxena OUTREACH NURSE.BLUEBERRY GROWER Work Phone: [facility] 05-11-2024 08:43-0500 Respiratory rate 20 /min Yodit Saxena OUTREACH NURSE.BLUEBERRY GROWER Work Phone: [facility] 05-11-2024 08:43-0500 SaO2% (BldA) [Mass fraction] 98 % Yodit Saxena OUTREACH NURSE.BLUEBERRY GROWER Work Phone: [facility] 05-11-2024 08:43-0500 Systolic blood pressure 120 mm[Hg] Yodit Saxena OUTREACH NURSE.BLUEBERRY GROWER Work Phone: [facility] 05-10-2024 12:02-0500 Body mass index (BMI) [Ratio] 20.14 kg/m2 Karen Mckee OUTREACH NURSE.DRIER TENDER [employer]THALENE Work Phone: [facility] 05-10-2024 12:02-0500 Body weight 54.9 kg Karen Mckee OUTREACH NURSE.DRIER TENDER [employer] Work Phone: [facility] 05-10-2024 12:02-0500 Diastolic blood pressure 73 mm[Hg] Karen Mckee OUTREACH NURSE.DRIER TENDER [employer] Work Phone: [facility] 05-10-2024 12:02-0500 Heart rate 108 /min Karen Mckee OUTREACH NURSE.DRIER TENDER [employer] Work Phone: [facility] 05-10-2024 12:02-0500 Respiratory rate 16 /min Karen Mckee OUTREACH NURSE.DRIER TENDER [employer] Work Phone: [facility] 05-10-2024 12:02-0500 Systolic blood pressure 125 mm[Hg] Karen Mckee OUTREACH NURSE.DRIER TENDER [employer] Work Phone: [facility] 04-29-2024 20:50-0500 Body temperature 96.98 [degF] JUAN MIGUEL MANLEY MD [facility] 04-29-2024 20:50-0500 Body weight 56.4 kg JUAN MIGUEL MANLEY MD [facility] 04-29-2024 20:50-0500 Diastolic Blood Pressure Non-Invasive 85 mm[Hg] JUAN MIGUEL MANLEY MD [facility] 04-29-2024 20:50-0500 Heart rate 80 /min JUAN MIGUEL MANLEY MD [facility] 04-29-2024 20:50-0500 Respiratory rate 16 /min JUAN MIGUEL MANLEY MD [facility] 04-29-2024 20:50-0500 Systolic Blood Pressure Non-Invasive 126 mm[Hg] JUAN MIGUEL MANLEY MD [facility] 04-25-2024 13:04-0400 Body mass index (BMI) [Ratio] 20.58 kg/m2 Sam Teresa OUTREACH NURSE.BL[employer]BERRY GROWER Work Phone: [facility] 04-25-2024 13:04-0400 Body weight 56.1 kg Sam Teresa OUTREACH NURSE.BL[employer]BERRY GROWER Work Phone: [facility] 04-25-2024 13:04-0400 Diastolic blood pressure 88 mm[Hg] Sam Teresa OUTREACH NURSE.BLUEBERRY GROWER Work Phone: [facility] 04-25-2024 13:04-0400 Heart rate 87 /min Sam Teresa OUTREACH NURSE.BLUEBERRY GROWER Work Phone: [facility] 04-25-2024 13:04-0400 Respiratory rate 16 /min Sam Teresa OUTREACH NURSE.BLUEBERRY GROWER Work Phone: [facility] 04-25-2024 13:04-0400 SaO2% (BldA) [Mass fraction] 99 % Sam Teresa OUTREACH NURSE.BLUEBERRY GROWER Work Phone: [facility] 04-25-2024 13:04-0400 Systolic blood pressure 144 mm[Hg] Sam Teresa OUTREACH NURSE.BLUEBERRY GROWER Work Phone: [facility] 04-13-2024 12:39-0400 Body mass index (BMI) [Ratio] 20.18 kg/m2 Pennie Clemente OUTREACH NURSE.BL[employer]BERRY GROWER Work Phone: [facility] 04-13-2024 12:39-0400 Body temperature 97 [degF] Pennie Clemente APRN.BLUEBERRY GROWER Work Phone: [facility] [facility] 04-13-2024 12:39-0400 Body weight 55 kg Pennie Praisler-Wood OUTREACH NURSE.[employer] Work Phone: [facility] 04-13-2024 12:39-0400 Diastolic blood pressure 78 mm[Hg] Pennie Praisler-Wood OUTREACH NURSE.[employer] Work Phone: [facility] 04-13-2024 12:39-0400 Heart rate 78 /min Pennie Praisler-Wood OUTREACH NURSE.[employer] Work Phone: [facility] 04-13-2024 12:39-0400 Respiratory rate 16 /min Pennie Praisler-Wood OUTREACH NURSE.[employer] Work Phone: [facility] 04-13-2024 12:39-0400 SaO2% (BldA) [Mass fraction] 100 % Pennie Praisler-Wood OUTREACH NURSE.[employer] Work Phone: [facility] 04-13-2024 12:39-0400 Systolic blood pressure 112 mm[Hg] Pennie Praisler-Wood OUTREACH NURSE.[employer] Work Phone: [facility] 03-28-2024 15:49-0400 Body mass index (BMI) [Ratio] 20.84 kg/m2 Maile Norman MD Work Phone: [facility] 03-28-2024 15:49-0400 Body temperature 97.3 [degF] Maile Norman MD Work Phone: [facility] 03-28-2024 15:49-0400 Body weight 56.8 kg Maile Norman MD Work Phone: [facility] 03-28-2024 15:49-0400 Diastolic blood pressure 87 mm[Hg] Maile Norman MD Work Phone: [facility] 03-28-2024 15:49-0400 Heart rate 80 /min Maile Norman MD Work Phone: [facility] 03-28-2024 15:49-0400 Respiratory rate 16 /min Maile Norman MD Work Phone: [facility] 03-28-2024 15:49-0400 SaO2% (BldA) [Mass fraction] 100 % Maile Norman MD Work Phone: [facility] 03-28-2024 15:49-0400 Systolic blood pressure 133 mm[Hg] Maile Norman MD Work Phone: [facility] 02-28-2024 08:35-0400 Body mass index (BMI) [Ratio] 20.21 kg/m2 Sam Teresa OUTREACH NURSE.[employer] Work Phone: [facility] 02-28-2024 08:35-0400 Body temperature 97 [degF] Sam Teresa OUTREACH NURSE.[employer] Work Phone: [facility] 02-28-2024 08:35-0400 Body weight 55.1 kg Sam Teresa OUTREACH NURSE.[employer] Work Phone: [facility] 02-28-2024 08:35-0400 Diastolic blood pressure 80 mm[Hg] Sam Teresa OUTREACH NURSE.[employer] Work Phone: [facility] 02-28-2024 08:35-0400 Heart rate 78 /min Sam Teresa OUTREACH NURSE.[employer] Work Phone: [facility] 02-28-2024 08:35-0400 Respiratory rate 20 /min Sam Teresa OUTREACH NURSE.[employer] Work Phone: [facility] 02-28-2024 08:35-0400 SaO2% (BldA) [Mass fraction] 97 % Sam Teresa OUTREACH NURSE.[employer] Work Phone: [facility] 02-28-2024 08:35-0400 Systolic blood pressure 118 mm[Hg] Sam Teresa OUTREACH NURSE.[employer] Work Phone: [facility] 02-16-2024 18:49-0400 Body mass index (BMI) [Ratio] 20.76 kg/m2 Chris Geronimo PA Work Phone: [facility] 02-16-2024 18:49-0400 Body temperature 98.2 [degF] Chris Geronimo PA Work Phone: [facility] 02-16-2024 18:49-0400 Body weight 56.6 kg Krislyn Aberegg PA Work Phone: [facility] 02-16-2024 18:49-0400 Diastolic blood pressure 73 mm[Hg] Krislyn Aberegg PA Work Phone: [facility] 02-16-2024 18:49-0400 Heart rate 85 /min Krislyn Aberegg PA Work Phone: [facility] 02-16-2024 18:49-0400 Respiratory rate 18 /min Krislyn Aberegg PA Work Phone: [facility] 02-16-2024 18:49-0400 SaO2% (BldA) [Mass fraction] 100 % Krislyn Aberegg PA Work Phone: [facility] 02-16-2024 18:49-0400 Systolic blood pressure 113 mm[Hg] Krislyn Aberegg PA Work Phone: [facility] 02-10-2024 17:05-0400 Diastolic Blood Pressure Non-Invasive 87 mm[Hg] JUAN MIGUEL MANLEY MD [facility] 02-10-2024 17:05-0400 Heart rate 95 /min JUAN MIGUEL MANLEY MD [facility] 02-10-2024 17:05-0400 Respiratory rate 16 /min JUAN MIGUEL MANLEY MD [facility] 02-10-2024 17:05-0400 Systolic Blood Pressure Non-Invasive 123 mm[Hg] JUAN MIGUEL MANLEY MD [facility] 02-10-2024 15:40-0400 Body temperature 97.16 [degF] JUAN MIGUEL MANLEY MD [facility] 02-10-2024 15:40-0400 Body weight 54.3 kg JUAN MIGUEL MANLEY MD [facility] 02-10-2024 15:40-0400 Diastolic Blood Pressure Non-Invasive 60 mm[Hg] JUAN MIGUEL MANLEY MD [facility] 02-10-2024 15:40-0400 Heart rate 111 /min JUAN MIGUEL MANLEY MD [facility] 02-10-2024 15:40-0400 Respiratory rate 18 /min JUAN MIGUEL MANLEY MD [facility] 02-10-2024 15:40-0400 Systolic Blood Pressure Non-Invasive 98 mm[Hg] JUAN MIGUEL MANLEY MD [facility] 02-07-2024 15:03-0400 Body height 165.1 cm Louis Valencia MD Work Phone: [facility] 02-07-2024 15:03-0400 Body mass index (BMI) [Ratio] 20.8 kg/m2 Louis Valencia MD Work Phone: [facility] 02-07-2024 15:03-0400 Body weight 56.7 kg Louis Valencia MD Work Phone: [facility] 02-07-2024 15:03-0400 Respiratory rate 16 /min Louis Valencia MD Work Phone: [facility] 01-25-2024 14:44-0400 Body mass index (BMI) [Ratio] 20.8 kg/m2 Sam Teresa OUTREACH NURSE.[employer] Work Phone: [facility] 01-25-2024 14:44-0400 Body weight 56.7 kg Sam Teresa OUTREACH NURSE.[employer] Work Phone: [facility] 01-25-2024 14:44-0400 Diastolic blood pressure 66 mm[Hg] Sam Teresa OUTREACH NURSE.[employer] Work Phone: [facility] 01-25-2024 14:44-0400 Heart rate 96 /min Sam Teresa OUTREACH NURSE.[employer] Work Phone: [facility] 01-25-2024 14:44-0400 Respiratory rate 16 /min Sam Teresa OUTREACH NURSE.[employer] Work Phone: [facility] 01-25-2024 14:44-0400 Systolic blood pressure 102 mm[Hg] Sam Teresa OUTREACH NURSE.[employer] Work Phone: [facility] 01-11-2024 13:33-0400 Body mass index (BMI) [Ratio] 20.7 kg/m2 Sam Teresa OUTREACH NURSE.[employer] Work Phone: [facility] 01-11-2024 13:33-0400 Body weight 56.43 kg Sam Teresa OUTREACH NURSE.[employer] Work Phone: [facility] 01-11-2024 13:33-0400 Diastolic blood pressure 62 mm[Hg] Sam Teresa OUTREACH NURSE.[employer] Work Phone: [facility] 01-11-2024 13:33-0400 Heart rate 86 /min Sam Teresa OUTREACH NURSE.[employer] Work Phone: [facility] 01-11-2024 13:33-0400 Respiratory rate 18 /min Sam Teresa OUTREACH NURSE.[employer] Work Phone: [facility] 01-11-2024 13:33-0400 SaO2% (BldA) [Mass fraction] 94 % Sam Teresa OUTREACH NURSE.[employer] Work Phone: [facility] 01-11-2024 13:33-0400 Systolic blood pressure 96 mm[Hg] Sam Teresa OUTREACH NURSE.[employer] Work Phone: [facility] 12-20-2023 07:50-0400 Body mass index (BMI) [Ratio] 19.8 kg/m2 Sam Teresa OUTREACH NURSE.[employer] Work Phone: [facility] 12-20-2023 07:50-0400 Body weight 53.98 kg Sam Teresa OUTREACH NURSE.[employer] Work Phone: [facility] 12-20-2023 07:50-0400 Diastolic blood pressure 80 mm[Hg] Sam Teresa OUTREACH NURSE.[employer] Work Phone: [facility] 12-20-2023 07:50-0400 Heart rate 114 /min Sam Teresa OUTREACH NURSE.[employer] Work Phone: [facility] 12-20-2023 07:50-0400 SaO2% (BldA) [Mass fraction] 97 % Sam Teresa OUTREACH NURSE.[employer] Work Phone: [facility] 12-20-2023 07:50-0400 Systolic blood pressure 130 mm[Hg] Sam Teresa OUTREACH NURSE.[employer] Work Phone: [facility] 11-11-2023 10:06-0400 Body mass index (BMI) [Ratio] 20.47 kg/m2 Sam Teresa OUTREACH NURSE.[employer] Work Phone: [facility] 11-11-2023 10:06-0400 Body weight 55.79 kg Sam Teresa OUTREACH NURSE.[employer] Work Phone: [facility] 11-11-2023 10:06-0400 Diastolic blood pressure 82 mm[Hg] Sam Teresa OUTREACH NURSE.[employer] Work Phone: [facility] 11-11-2023 10:06-0400 Heart rate 85 /min Sam Teresa OUTREACH NURSE.[employer] Work Phone: [facility] 11-11-2023 10:06-0400 SaO2% (BldA) [Mass fraction] 98 % Sam Teresa OUTREACH NURSE.[employer] Work Phone: [facility] 11-11-2023 10:06-0400 Systolic blood pressure 110 mm[Hg] Sam Teresa OUTREACH NURSE.[employer] Work Phone: [facility] 10-14-2023 11:26-0400 Body height 165.1 cm Sam Teresa OUTREACH NURSE.[employer] Work Phone: [facility] 10-14-2023 11:26-0400 Body weight 55.79 kg Sam Teresa OUTREACH NURSE.[employer] Work Phone: [facility] 10-14-2023 11:26-0400 Diastolic blood pressure 70 mm[Hg] Sam Teresa OUTREACH NURSE.[employer] Work Phone: [facility] 10-14-2023 11:26-0400 Heart rate 107 /min Sam Teresa OUTREACH NURSE.[employer] Work Phone: [facility] 10-14-2023 11:26-0400 Respiratory rate 12 /min Sam Teresa OUTREACH NURSE.[employer] Work Phone: [facility] 10-14-2023 11:26-0400 SaO2% (BldA) [Mass fraction] 97 % Sam Teresa OUTREACH NURSE.[employer] Work Phone: [facility] 10-14-2023 11:26-0400 Systolic blood pressure 132 mm[Hg] Sam Teresa OUTREACH NURSE.[employer] Work Phone: [facility] 10-11-2023 10:16-0400 Body height 165.1 cm Louis Valencia MD Work Phone: [facility] 10-11-2023 10:16-0400 Body weight 55.79 kg Louis Valencia MD Work Phone: [facility] 10-11-2023 10:16-0400 Respiratory rate 20 /min Louis Valencia MD Work Phone: [facility] 09-27-2023 13:15-0400 Body temperature 96.3 [degF] Sam Teresa OUTREACH NURSE.[employer] Work Phone: [facility] 09-27-2023 13:15-0400 Body weight 55.79 kg Sam Teresa OUTREACH NURSE.[employer] Work Phone: [facility] 09-27-2023 13:15-0400 Diastolic blood pressure 60 mm[Hg] Sam Teresa OUTREACH NURSE.[employer] Work Phone: [facility] 09-27-2023 13:15-0400 Heart rate 76 /min Sam Teresa OUTREACH NURSE.[employer] Work Phone: [facility] 09-27-2023 13:15-0400 Respiratory rate 20 /min Sam Teresa OUTREACH NURSE.[employer] Work Phone: [facility] 09-27-2023 13:15-0400 Systolic blood pressure 114 mm[Hg] Sam Khan OUTREACH NURSE.[employer] Work Phone: [facility] 09-26-2023 22:13-0400 Diastolic Blood Pressure Non-Invasive 76 mm[Hg] DR TU DE ANDA MD [facility] 09-26-2023 22:13-0400 Heart rate 63 /min DR TU DE ANDA MD [facility] 09-26-2023 22:13-0400 Respiratory rate 16 /min DR TU DE ANDA MD [facility] 09-26-2023 22:13-0400 Systolic Blood Pressure Non-Invasive 133 mm[Hg] DR TU DE ANDA MD [facility] 09-26-2023 19:34-0400 Body height 175.[address] TU DE ANDA MD [facility] 09-26-2023 19:34-0400 Body temperature 98.42 [degF] DR TU DE ANDA MD [facility] 09-26-2023 19:34-0400 Body weight 56.[address] TU DE ANDA MD [facility] 09-26-2023 19:34-0400 Diastolic Blood Pressure Non-Invasive 68 mm[Hg] DR TU DE ANDA MD [facility] 09-26-2023 19:34-0400 Heart rate 104 /min DR TU DE ANDA MD [facility] 09-26-2023 19:34-0400 Respiratory rate 18 /min DR TU DE ANDA MD [facility] 09-26-2023 19:34-0400 Systolic Blood Pressure Non-Invasive 143 mm[Hg] DR TU DE ANDA MD [facility] 09-13-2023 13:31-0400 Body height 165.1 cm Louis Valencia MD Work Phone: [facility] 09-13-2023 13:31-0400 Body weight 57.15 kg Louis Valencia MD Work Phone: [facility] 09-13-2023 13:31-0400 Respiratory rate 18 /min Louis Valencia MD Work Phone: [facility] 09-09-2023 15:05-0400 Body weight 57.15 kg Sam Teresa OUTREACH NURSE.[employer] Work Phone: [facility] 09-09-2023 15:05-0400 Diastolic blood pressure 78 mm[Hg] Sam Teresa OUTREACH NURSE.[employer] Work Phone: [facility] 09-09-2023 15:05-0400 Heart rate 78 /min Sam Teresa OUTREACH NURSE.[employer] Work Phone: [facility] 09-09-2023 15:05-0400 Respiratory rate 16 /min Sam Teresa OUTREACH NURSE.[employer] Work Phone: [facility] 09-09-2023 15:05-0400 Systolic blood pressure 124 mm[Hg] Sam Teresa OUTREACH NURSE.[employer] Work Phone: [facility] 08-18-2023 09:17-0500 Body height 165.1 cm P[address] 1 [facility] 08-18-2023 09:17-0500 Body temperature 98.6 [degF] Pst 1 [facility] 08-18-2023 09:17-0500 Body weight 55.34 kg P[facility] 1 [facility] 08-18-2023 09:17-0500 Diastolic blood pressure 60 mm[Hg] Pst 1 [facility] 08-18-2023 09:17-0500 Heart rate 92 /min P[facility] 1 [facility] 08-18-2023 09:17-0500 Respiratory rate 16 /min P[facility] 1 [facility] 08-18-2023 09:17-0500 SaO2% (BldA) [Mass fraction] 98 % P[facility] 1 [facility] 08-18-2023 09:17-0500 Systolic blood pressure 124 mm[Hg] Pst 1 [facility] 08-11-2023 08:06-0500 Body temperature 99.5 [degF] Pennie Praisler-Wood OUTREACH NURSE.[employer] Work Phone: [facility] 08-11-2023 08:06-0500 Body weight 56.25 kg Pennie Praisler-Wood OUTREACH NURSE.[employer] Work Phone: [facility] 08-11-2023 08:06-0500 Diastolic blood pressure 83 mm[Hg] Pennie Praisler-Wood OUTREACH NURSE.[employer] Work Phone: [facility] 08-11-2023 08:06-0500 Heart rate 107 /min Pennie Praisler-Wood OUTREACH NURSE.[employer] Work Phone: [facility] 08-11-2023 08:06-0500 Respiratory rate 22 /min Pennie Praisler-Wood OUTREACH NURSE.[employer] Work Phone: [facility] 08-11-2023 08:06-0500 SaO2% (BldA) [Mass fraction] 97 % Pennie Praisler-Wood OUTREACH NURSE.[employer] Work Phone: [facility] 08-11-2023 08:06-0500 Systolic blood pressure 127 mm[Hg] Pennie Praisler-Wood OUTREACH NURSE.[employer] Work Phone: [facility] 08-09-2023 12:57-0500 Body height 165.1 cm Louis Valencia MD Work Phone: [facility] 08-09-2023 12:57-0500 Body weight 57.15 kg Louis Valencia MD Work Phone: [facility] 08-09-2023 12:57-0500 Respiratory rate 16 /min Louis Valencia MD Work Phone: [facility] 08-05-2023 13:35-0500 Body height 165.1 cm Sam Teresa OUTREACH NURSE.[employer] Work Phone: [facility] 08-05-2023 13:35-0500 Body weight 57.38 kg Sam Teresa OUTREACH NURSE.[employer] Work Phone: [facility] 08-05-2023 13:35-0500 Diastolic blood pressure 72 mm[Hg] Sam Teresa OUTREACH NURSE.[employer] Work Phone: [facility] 08-05-2023 13:35-0500 Respiratory rate 16 /min Sam Teresa OUTREACH NURSE.[employer] Work Phone: [facility] 08-05-2023 13:35-0500 Systolic blood pressure 118 mm[Hg] Sam Teresa OUTREACH NURSE.[employer] Work Phone: [facility] 08-01-2023 08:19-0500 Body temperature 97.5 [degF] Krislyn Aberegg PA Work Phone: [facility] 08-01-2023 08:19-0500 Body weight 59.88 kg Krislyn Aberegg PA Work Phone: [facility] 08-01-2023 08:19-0500 Diastolic blood pressure 86 mm[Hg] Krislyn Aberegg PA Work Phone: [facility] 08-01-2023 08:19-0500 Heart rate 69 /min Krislyn Aberegg PA Work Phone: [facility] 08-01-2023 08:19-0500 Respiratory rate 20 /min Krislyn Aberegg PA Work Phone: [facility] 08-01-2023 08:19-0500 SaO2% (BldA) [Mass fraction] 99 % Krislyn Aberegg PA Work Phone: [facility] 08-01-2023 08:19-0500 Systolic blood pressure 133 mm[Hg] Krislyn Aberegg PA Work Phone: [facility] 06-16-2023 09:19-0500 Body height 165.1 cm Antonio Rios MD Work Phone: [facility] 06-16-2023 09:19-0500 Body weight 56.7 kg Antonio Rios MD Work Phone: [facility] 05-12-2023 09:22-0500 Heart rate 68 /min Charles Prebish OUTREACH NURSE.[employer] Work Phone: [facility] 05-12-2023 09:22-0500 Respiratory rate 16 /min Charles Prebish OUTREACH NURSE.[employer] Work Phone: [facility] 05-12-2023 09:22-0500 SaO2% (BldA) [Mass fraction] 100 % Charles Prebish OUTREACH NURSE.[employer] Work Phone: [facility] 04-30-2023 09:39-0400 Body weight 57.61 kg Rick Anderson MD Work Phone: [facility] 04-30-2023 09:39-0400 Diastolic blood pressure 85 mm[Hg] Rick Anderson MD Work Phone: [facility] 04-30-2023 09:39-0400 Heart rate 147 /min Rick Anderson MD Work Phone: [facility] 04-30-2023 09:39-0400 Respiratory rate 18 /min Rick Anderson MD Work Phone: [facility] 04-30-2023 09:39-0400 Systolic blood pressure 124 mm[Hg] Rick Anderson MD Work Phone: [facility] 04-30-2023 09:00-0400 Body temperature 97.81 [degF] Anny Older OUTREACH NURSE.[employer] Work Phone: [facility] 04-30-2023 09:00-0400 Diastolic blood pressure 84 mm[Hg] Anny Older OUTREACH NURSE.[employer] Work Phone: [facility] 04-30-2023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 FLULAVAL, FLUZONE) Rick Anderson MD Work Phone: Start: 04-30-2023 Urnls dip stick/tablet rgnt auto w/o microscopy Anny Older OUTREACH NURSE.BLUEBERRY GROWER Work Phone: Start: 04-25-2023 Urnls dip stick/tablet rgnt auto w/o microscopy Sam Teresa OUTREACH NURSE.BLUEBERRY GROWER Work Phone: Start: 03-30-2023 Radiologic exam chest 2 views Oksana Weldon OUTREACH NURSE.BLUEBERRY GROWER Work Phone: Start: 03-11-2023 Mri any jt upper extremity w/o & w/contr matrl Sam Teresa OUTREACH NURSE.BLUEBERRY GROWER Work Phone: Start: 12-01-2022 Radex sacrum & coccyx minimum 2 views Gayla Podlogaretha OUTREACH NURSE.BLUEBERRY GROWER Work Phone: Start: 07-18-2022 STREP A MOLECULAR (POC) Kimberly Loya OUTREACH NURSE.BLUEBERRY GROWER Work Phone: Start: 03-16-2022 Radex fingr minimum 2 views Pennie Austin OUTREACH NURSE.BLUEBERRY GROWER Work Phone: Start: 07-18-2021 End: 07-18-2021 Ct head/brain w/o contrast material Boubacar Perea MD Work Phone: Start: 07-18-2021 Basic metabolic panel calcium total Boubacar Perea MD Work Phone: Start: 03-09-2021 Radiologic exam chest 2 views Yodit Saxena OUTREACH NURSE.BLUEBERRY GROWER Work Phone: Adenoid excision JUAN MIGUEL VALERIO [...] right rotator cuff repair Kofi Gannon PT History of repair of musculotendinous cuff of shoulder S/P right rotator cuff repair Claire Kashuba CHILDR[employer]S [employer]TERTAINER Work Phone: History of repair of musculotendinous cuff of shoulder S/P right rotator cuff repair Claire Kashuba CHILDREN'S ENTERTAINER Work Phone: Ligation of fallopian tube Yee MANLEY MD Oophorectomy Oophorectomy JUAN MIGUEL GUAJARDO MD Tonsillectomy JUAN MIGUEL AVINA MD Tonsillectomy Tonsillectomy JUAN MIGUEL APARICIO MD Plan of Treatment Date Care Activity Detail Author Start: 03-18-2034 Urine microalbumin profile DTaP,Tdap,Td Vaccine (3 - Td or Tdap) [facility] Start: 03-15-2032 Urine microalbumin profile [facility] Start: 07-09-2029 Screening for malign ant neoplasm of cervix Cervical Cancer Screening [facility] Start: 09-21-2025 Annual PCP Team [facility] Bl[facility] [place] Disease Visit Annual PCP Team Chronic Disease Visit [facility] Start: 08-16-2025 End: 08-16-2025 Patient encounter procedure 08/16/2025 4:00 PM EST Office Visit [facility] [place] [address] [place], [place] [id number] Maile Norman MD [address], [place] [id number] 3 month follow up [facility] [place] Comment on above: 3 month follow up Start: 07-31-2025 Annual PCP Team [facility] Visit Annual PCP Team Chronic Disease Visit [facility] Start: 07-31-2025 Hepatitis B Vaccine (2 of 3 - Hep B Twinrix 3-dose series) Hepatitis B Vaccine (2 of 3 - Hep B Twinrix 3-dose series) [facility] Comment on above: Postponed from 05/19 (Declined at this time) Start: 07-11-2025 Annual PCP Team [facility] Visit Annual PCP Team Chronic Disease Visit [facility] Start: 05-15-2025 Annual PCP Team [facility] Visit Annual PCP Team Chronic Disease Visit [facility] Start: 05-07-2025 End: 05-07-2025 Patient encounter procedure 05/07/2025 1:40 PM EST Office Visit [facility] [place] [address] [place], [place] [phone] Karen Mckee APRN.DRIER TENDER NAPHTHALENE [address] [place], [place] [phone] 3 month follow up [facility] [place] Comment on above: 3 month follow up Start: 04-25-2025 Annual PCP Team [facility] Visit Annual PCP Team Chronic Disease Visit [facility] Start: 04-22-2025 End: 04-22-2025 Patient encounter procedure 04/22/2025 10:50 AM EDT Office Visit OB/Gynecology [address] [place] [address] Stephy Simpson MD [address] [place] [address] POST OP OB/Gynecology Comment on above: POST OP Start: 03-28-2025 Annual PCP Team [facility] Visit Annual PCP Team Chronic Disease Visit [facility] Start: 03-28-2025 Covid-19 Vaccine ( season) Covid-19 Vaccine () [facility] Comment on above: Postponed from 02/25 (Declined at this time) Start: 03-22-2025 End: 03-22-2025 Patient encounter procedure 03/22/2025 1:10 PM EDT Office Visit OB/Gynecology [address] [place] [address] Stephy Simpson MD [address] [place] [place] [address] 1 week post-op OB/Gynecology Comment on above: 1 week post-op Start: 02-27-2025 Annual PCP Team [facility] Visit Annual PCP Team Chronic Disease Visit [facility] Start: 02-26-2025 End: 02-26-2025 Patient encounter procedure 02/26/2025 3:20 PM EDT Office Visit OB/Gynecology [address] [place] [address] Stephy Simpson MD [address] [place] [place] [address] Consult for hysterectomy OB/Gynecology Comment on above: Consult for hysterec lulu Start: 02-25-2025 Influenza vaccination C [facility] Start: 02-04-2025 End: 02-04-2025 Patient encounter procedure 02/04/2025 4:40 PM EDT Office Visit [facility] [place] [address] [place] [address] Maile Norman MD [address] [place] [address] 3 month follow up [facility] [place] Comment on above: 3 month follow up Start: 01-28-2025 End: 01-28-2025 ambulatory 01/28/2025 2:45 PM EDT OT/PT/Speech Visit [facility] [address] [place] [address] Kofi Gannon PT S/P right rotator cuff repair [Z98.890] [facility] Comment on above: S/P right rotator cu ff repair [Z98.890] Start: 01-24-2025 Annual PCP Team [facility] Disease Visit Annual PCP Team Chronic Disease Visit [facility] Start: 2025 End: 2025 Manual pelvic examination OB/Gynecology Comment on above: Pelvic pain in femal e [R10.2] Pelvic pain in femal e Start: 01-21-2025 End: 01-21-2025 ambulatory 01/21/2025 2:00 PM EDT OT/PT/Speech Visit [facility] [address] [place] [address] Claire Harrington, UMA [address] [place] [address] S/P right rotator cuff repair [Z98.890] [facility] Comment on above: S/P right rotator cu ff repair [Z98.890] Start: 01-14-2025 End: 01-14-2026 US Pelvis PELVIC US [facility] Anc Imaging Routine Pelvic pain in female Expected: 01/14/2025, Expires: 01/14/2026 [facility] Work Phone: Comment on above: Expected: 01/14/2025 , Expires: 01/14/2026 Start: 01-14-2025 End: 01-14-2025 ambulatory 01/14/2025 11:45 AM EDT OT/PT/Speech Visit [facility] [address] [place] [address] Claire Harrington, CHILDREN'S ENTERTAINER [address] [place] [address] S/P right rotator cuff repair [Z98.890] [facility] Comment on above: S/P right rotator cu ff repair [Z98.890] Start: 01-10-2025 Annual PCP Team [facility] Disease Visit Annual PCP Team Chronic Disease Visit [facility] Start: 01-04-2025 End: 01-04-2025 Patient encounter procedure 01/04/2025 1:15 PM EDT Office Visit Orthopedics [address] [facility] [address] [place] [phone] Louis Valencia MD [address] [facility] [place] [address] right shoulder Orthopedics Comment on above: right shoulder Start: 01-03-2025 End: 01-03-2025 Patient encounter procedure 01/03/2025 8:30 AM EDT Office Visit [facility] [address] [place] [address] Charles Stanton APRN.BLUEBERRY GROWER [address] [place] [address] S/P shoulder surgery [Z98.890]; Traumatic tear of right rotator cuff, unspecified tear extent, subsequent encounter [S46.011D]; Acute pain of right shoulder [M25.511] [facility] Comment on above: S/P shoulder surgery [Z98.890]; Traumatic tear of right rotator cuff, unspecified tear extent, subsequent encounter [S46.011D]; Acute pain of right shoulder [M25.511] Start: 12-24-2024 Influenza vaccination Influenza Vacc ine (#1) [facility] Comment on above: Postponed from 02/25 (Declined at this time) Start: 12-24-2024 End: 12-24-2024 ambulatory 12/24/2024 10:45 AM EDT OT/PT/Speech Visit [facility] [address] [place] [address] Kofi Gannon, PT Z98.890 (ICD-10-CM) - S/P right rotator cuff repair [facility] Comment on above: Z98.890 (ICD-10-CM) - S/P right rotator cuff repair Start: 12-19-2024 Annual PCP Team [facility] Disease Visit Annual PCP Team Chronic Disease Visit [facility] Start: 12-17-2024 End: 12-17-2024 ambulatory 12/17/2024 10:15 AM EDT OT/PT/Speech Visit [facility] [address] [place] [address] Clarie Harrington, CHILDREN'S ENTERTAINER [address] [place] [address] Z98.890 (ICD-10-CM) - S/P right rotator cuff repair [facility] Comment on above: Z98.890 (ICD-10-CM) - S/P right rotator cuff repair Start: 12-10-2024 End: 12-10-2024 ambulatory 12/10/2024 9:45 AM EDT OT/PT/Speech Visit [facility] [address] [place] [address] Kofi Gannon, PT Z98.890 (ICD-10-CM) - S/P right rotator cuff repair [facility] Comment on above: Z98.890 (ICD-10-CM) - S/P right rotator cuff repair Start: 12-03-2024 End: 12-03-2024 ambulatory 12/03/2024 9:30 AM EDT OT/PT/Speech Visit [facility] [address] [place] [address] Claire Harrington, CHILDREN'S ENTERTAINER [address] [place] [address] Z98.890 (ICD-10-CM) - S/P right rotator cuff repair [facility] Comment on above: Z98.890 (ICD-10-CM) - S/P right rotator cuff repair Start: 11-30-2024 End: 11-30-2024 Patient encounter procedure 11/30/2024 8:00 AM EDT Office Visit [facility] [place] [address] [place] [address] Sam Khan APRN.BLUEBERRY GROWER [address] [place] [address] 2 wk follow up [facility] [place] Comment on above: 2 wk follow up Start: 11-28-2024 End: 11-28-2024 Patient encounter procedure 11/28/2024 11:40 AM EDT Office Visit [facility] [place] [address] [place] [address] Sam Khan APRN.BLUEBERRY GROWER [address] [place] [address] 2 wk follow up [facility] [place] Comment on above: 2 wk follow up Start: 11-26-2024 End: 11-26-2024 ambulatory 11/26/2024 9:00 AM EDT OT/PT/Speech Visit [facility] [address] [place] [address] Kofi Gannon PT Post Op PT [facility] Comment on above: Post Op PT Start: 11-23-2024 End: 11-23-2024 Patient encounter procedure 11/23/2024 2:15 PM EDT Office Visit Orthopedics [address] [facility] [address] [place] [phone] Louis Valencia MD [address] [facility] [facility] [address] [place] [address] S/P Right shoulder Dx arthroscopy 10-12-2024 Orthopedics Comment on above: S/P Right shoulder D x arthroscopy 10-12-2024 Start: 11-14-2024 End: 11-14-2024 ambulatory 11/14/2024 9:00 AM EDT [facility] [address] [place] [address] Jono Gallego, PT [address] [place] [address] Post Op [facility] Comment on above: Post Op PT Start: 11-10-2024 Annual PCP Team [facility] Disease Visit Annual PCP Team Chronic Disease Visit [facility] Start: 11-02-2024 End: 11-02-2024 Patient encounter procedure [facility] [place] Comment on above: 3 month follow up Start: 10-26-2024 End: 10-26-2024 Patient encounter procedure 10/26/2024 3:00 PM EDT Office Visit Orthopedics [address] [phone] Louis Valencia MD [address] [facility] [address] [place] [address] S/P Right shoulder Dx arthroscopy 10-12-2024 Orthopedics Comment on above: S/P Right shoulder D x arthroscopy 10-12-2024 Start: 10-19-2024 End: 10-19-2024 ambulatory 10/19/2024 9:30 AM EDT OT[facility]PT[facility] [address] [place] [address] Jono Gallego, PT [address] [place] [address] Post Op PT [facility] Comment on above: Post Op PT Start: 10-19-2024 End: 10-19-2024 Patient encounter procedure 10/19/2024 9:20 AM EDT Office Visit [facility] [place] [address] [place] [address] Maile Norman MD [address] [place] [address] Pain management after surgery. 2nd rotator cuff surgery. [facility] [place] Comment on above: Pain management afte r surgery. 2nd rotator cuff surgery. Start: 10-13-2024 Annual PCP Team [facility] Disease Visit Annual PCP Team Chronic Disease Visit [facility] Start: 10-12-2024 End: 10-12-2024 Admission to same day surgery center 10/12/2024 10:50 AM EDT - 10/12/2024 12:31 PM EDT Surgery [facility] [address] [place] [address] Louis Valencia MD [address] [place] [address] ARTHROSCOPY SHOULDER [facility] Comment on above: ARTHROSCOPY SHOULDER Start: 10-12-2024 End: 10-12-2024 Arthroscopy shoulder dx w/wo synovial biopsy spx ARTHROSCOPY SHOULDER S/P right rotator cuff repair Right shoulder pain, unspecified chronicity 10/12/2024 10:50 AM EDT ME OR Start: 10-12-2024 Subsequent hospital visit by physician 10/12/2024 10:50 AM EDT Hospital Encounter [facility] [address] [place] [address] Louis Valencia MD [address] [place] [address] S/P right rotator cuff repair [Z98.890], Right shoulder pain, unspecified chronicity [M25.511] [facility] Comment on above: S/P right rotator cu ff repair [Z98.890], Right shoulder pain, unspecified chronicity [M25.511] Start: 09-28-2024 End: 09-28-2024 Anesthesia consultation 09/28/2024 9:20 AM EDT PAT [facility] [address] [place] [address] 1, Pacc [place] [address] [place] [address] 10/12 DECLINED VV ARTHROSCOPY SHOULDER [1111] - Shoulder - Right Pre Anesthesia Comment on above: 10/12 DECLINED VV ART HROSCOPY SHOULDER [1111] - Shoulder - Right Start: 09-26-2024 Annual PCP Team [facility] Disease Visit Annual PCP Team Chronic Disease Visit [facility] Start: 09-14-2024 End: 09-14-2024 Patient encounter procedure 09/14/2024 1:45 PM EDT Office Visit Orthopedics [address] [place] [phone] Louis Valencia MD [address] [facility] [address] [place] [address] 6 week follow up Orthopedics Comment on above: 6 week follow up Start: 09-08-2024 Annual PCP Team [facility] Disease Visit Annual PCP Team Chronic Disease Visit [facility] Start: 09-08-2024 Covid-19 Vaccine () Covid-19 Vaccine () [facility] Comment on above: Postponed from 02/25 (Declined at this time) Start: 08-05-2024 Annual PCP Team [facility]ender [facility] Disease Visit Annual PCP Team Chronic Disease Visit [facility] Start: 07-31-2024 End: 07-31-2024 Patient encounter procedure 07/31/2024 10:00 AM EST Office Visit [facility] [place] [address] [place] [address] Maile Norman MD [address] [place] [address] 3 month follow up [facility] [place] Comment on above: 3 month follow up Start: 07-27-2024 End: 07-27-2024 Patient encounter procedure 07/27/2024 2:15 PM EST Office Visit Orthopedics [address] [place] [phone] Louis Valencia MD [address] [place] [address] injection, MRI results Orthopedics Comment on above: injection, MRI resul ts Start: 07-13-2024 End: 10-12-2024 Comprehensive metabolic 2000 panel - Serum or Plasma [facility] Work Phone: Comment on above: Expected: 07/13/2024 , Expires: 10/12/2024 Start: 07-09-2024 End: 10-08-2024 Estradiol (E2) [Mass/volume] in Serum or Plasma ESTRADIOL-17B BLD Lab Routine Menopausal symptoms Expected: 07/09/2024, Expires: 10/08/2024 [facility] Comment on above: Expected: 07/09/2024 , Expires: 10/08/2024 Start: 07-09-2024 End: 10-08-2024 Follitropin [Units/volume] in Serum or Plasma FOLLICLE STIMULATING HORMONE Lab Routine Menopausal symptoms Expected: 07/09/2024, Expires: 10/08/2024 [facility] Comment on above: Expected: 07/09/2024 , Expires: 10/08/2024 Start: 07-09-2024 End: 07-09-2024 Patient encounter procedure 07/09/2024 9:50 AM EST Appointment Mammogram [address] [place] [address] KEYON SCREENING W TERESITA Mammogram Comment on above: KEYON SCREENING W TERESITA Start: 07-09-2024 End: 07-09-2024 Patient encounter procedure 07/09/2024 7:30 AM EST Office Visit OB/Gynecology [address] [place], [place] [phone] Cecile Patricia APRN.BLUEBERRY GROWER [address] [place] [address] Annual, Pap, Interested in pre menopause info OB/Gynecology Comment on above: Annual, Pap, Interes hira in pre menopause info Start: 06-19-2024 End: 06-19-2024 Patient encounter procedure 06/19/2024 7:30 AM EST Appointment Radiology [address] [place] [address] S/P right rotator cuff repair [Z98.890] Radiology Comment on above: S/P right rotator cu ff repair [Z98.890] Start: 06-06-2024 End: 06-06-2024 Patient encounter procedure 06/06/2024 8:30 AM EST Office Visit General Surgery [address] [address] John Maher MD [address] [place] [address] Dx: Injury of left upper extremity, subsequent encounter [S49.92XD (ICD-10-CM)]; Mass of left upper extremity [R22.32 (ICD-10-CM)] General Surgery Comment on above: Dx: Injury of left u pper extremity, subsequent encounter [S49.92XD (ICD-10-CM)]; Mass of left upper extremity [R22.32 (ICD-10-CM)] Start: 05-21-2024 End: 05-21-2024 Patient encounter procedure 05/21/2024 9:40 AM EST Office Visit [facility] [place] [address] [place] [address] Anny Hutchins, OUTREACH NURSE.BLUEBERRY GROWER [address] [place] [address] follow-up - blister on right hand [facility] [place] Comment on above: follow-up - blister on right hand Start: 05-11-2024 End: 08-10-2024 Herpes simplex virus+Varicella zoster virus DNA [Presence] in Unspecified specimen by MARY KAY with probe detection HSV1,2/VZV NAAT LESION Lab Routine Rash Expected: 05/11/2024, Expires: 08/10/2024 [facility] Work Phone: Comment on above: Expected: 05/11/2024 , Expires: 08/10/2024 Start: 04-25-2024 End: 04-25-2024 Patient encounter procedure 04/25/2024 1:00 PM EDT Office Visit [facility] [place] [address] [place], [place] [address] Sam Khan APRN.BLUEBERRY GROWER [address] [place] [address] 4 week follow up post suture removel left arm [facility] [place] Comment on above: 4 week follow up pos t suture removel left arm Start: 02-28-2024 End: 05-29-2024 CBC W Auto Differential panel - Blood [facility] Work Phone: Comment on above: Expected: 02/28/2024 , Expires: 05/29/2024 Start: 02-28-2024 End: 05-29-2024 Comprehensive metabolic 2000 panel - Serum or Plasma [facility] Comment on above: Expected: 02/28/2024 , Expires: 05/29/2024 Start: 02-28-2024 End: 05-29-2024 Hepatitis C virus Ab [Presence] in Serum [facility] Comment on above: Expected: 02/28/2024 , Expires: 05/29/2024 Start: 02-28-2024 End: 05-29-2024 HIV 1+2 Ab [Presence] in Serum or Plasma by Immunoassay [facility] Comment on above: Expected: 02/28/2024 , Expires: 05/29/2024 Start: 02-26-2024 Covid-19 Vaccine ( season) Covid-19 Vaccine ( season) [facility] Start: 02-26-2024 Covid-19 Vaccine ( season) Covid-19 Vaccine ( season) [facility] Start: 02-26-2024 Influenza vaccination Influenza Vacc ine (#1) [facility] Start: 02-07-2024 End: 02-07-2024 Patient encounter procedure 02/07/2024 3:15 PM EDT Office Visit [facility] [address], [place] [phone] Louis Valencia MD [address] [place] [address] est pt post op left shoulder [facility] Comment on above: est pt post op left shoulder Start: 01-25-2024 End: 01-25-2024 Patient encounter procedure 01/25/2024 3:00 PM EDT Office Visit [facility] [place] [address] [place], [place] [phone] Sam Khan APRN.BLUEBERRY GROWER [address] [place] [phone] 2 wk follow up [facility] [place] Comment on above: 2 wk follow up Start: 01-11-2024 COVID-19 VACCINE (#1) COVID-19 VACCI NE (#1) [facility] Comment on above: Postponed from 07/25 (Declined at this time) Start: 01-10-2024 End: 01-10-2024 Patient encounter procedure 01/10/2024 8:40 AM EDT Office Visit [facility] [place] [address] [place], [place] [phone] Sam Khan APRN.BLUEBERRY GROWER [address] [place] [phone] 3 week medication follow up [facility] [place] Comment on above: 3 week medication fo llow up Start: 12-20-2023 End: 12-20-2023 Patient encounter procedure 12/20/2023 8:00 AM EDT Office Visit [facility] [place] [address] [place] [address] Sam Khan APRN.BLUEBERRY GROWER [address] [place] [address] [phone] med check [facility] [place] Comment on above: med check Start: 12-14-2023 End: 12-14-2023 Patient encounter procedure 12/14/2023 2:40 PM EDT Office Visit [facility] [place] [address] [place], [place] [phone] Sam Khan APRN.BLUEBERRY GROWER [address] [place] [phone] Review pain medication [facility] [place] Comment on above: Review pain medicati on Start: 12-14-2023 End: 12-14-2023 ambulatory 12/14/2023 1:30 PM EDT OT/PT/Speech Visit [facility] [address] [place] [address] O'Yodit Robin, PT right shoulder post op [facility] Comment on above: right shoulder post op Start: 12-07-2023 End: 12-07-2023 ambulatory 12/07/2023 12:45 PM EDT OT/PT/Speech Visit [facility] [address] [place] [address] O'LobitoPriyaYodit, PT right shoulder post op [facility] Comment on above: right shoulder post op Start: 11-30-2023 End: 11-30-2023 ambulatory 11/30/2023 12:45 PM EDT OT/PT/Speech Visit [facility] [address] [address] O'LobitoPriyaYodit, PT right shoulder post op [facility] Comment on above: right shoulder post op Start: 11-24-2023 End: 11-24-2023 ambulatory 11/24/2023 9:30 AM EDT OT/PT/Speech Visit [facility] [address] [place] [address] O'LobitoYodit, PT right shoulder post op [facility] Comment on above: right shoulder post op Start: 11-22-2023 End: 11-22-2023 Patient encounter procedure 11/22/2023 1:15 PM EDT Office Visit [facility] [address] [place] [address] Louis Valencia MD [address] [place] [address] RIGHT SHOULDER [place] [facility] Comment on above: RIGHT SHOULDER Start: 11-16-2023 End: 11-16-2023 ambulatory 11/16/2023 12:45 PM EDT OT/PT/Speech Visit [facility] [address] [place] [address] O'LobitoYodit jack, PT right shoulder post op [facility] Comment on above: right shoulder post op Start: 11-11-2023 End: 11-11-2023 Patient encounter procedure 11/11/2023 10:20 AM EDT Office Visit [facility] [place] [address] [place], [place] [phone] Sam Khan APRN.BLUEBERRY GROWER [address] [place], [place] [phone] Review pain medication [facility] [place] Comment on above: Review pain medicati on Start: 11-09-2023 End: 11-09-2023 ambulatory 11/09/2023 1:30 PM EDT OT/PT/Speech Visit [facility] [address] [place] [address] O'LobitoPriyaYodit, PT right shoulder post op [facility] Comment on above: right shoulder post op Start: 10-25-2023 End: 10-25-2023 ambulatory 10/25/2023 11:15 AM EDT OT/PT/Speech Visit [facility] [address] [place] [address] O'LobitoPriyaYodit, PT [place] [facility] Comment on above: [place] Start: 02-25-2023 Covid-19 Vaccine () Covid-19 Vaccine () [facility] Start: 02-25-2023 Influenza vaccination C [facility] Start: 12-24-2022 Influenza vaccination INFLUENZA (#1) [facility] Comment on above: Postponed from 02/25 (Declined at this time) Start: 09-28-2022 HPV TESTING HPV TESTING [facility] Start: 09-28-2022 PAP TESTING PAP TESTING [facility] Start: 09-28-2022 Screening for malign ant neoplasm of cervix [facility] Start: 07-18-2022 End: 08-01-2022 Influenza virus A and B RNA and SARS-CoV-2 (COVID-19) N gene panel - Respiratory specimen by MARY KAY with probe detection COVID WITH FLUA+B, ROUTINE Microbiology Routine URI, acute Expected: 07/18/2022, Expires: 08/01/2022 [facility] Work Phone: Comment on above: Expected: 07/18/2022 , Expires: 08/01/2022 Start: 05-12-2022 COVID-19 VACCINE (#1) COVID-19 VACCI NE (#1) [facility] Comment on above: Postponed from 01/22 (Declined at this time) Postponed from 07/25 (Declined at this time) Start: 05-12-2022 PNEUMOCOCCAL (1 - PCV) PNEUMOCOCCAL (1 - PCV) [facility] Comment on above: Postponed from 01/22 (Declined at this time) Start: 05-07-2022 End: 07-07-2022 CBC W Auto Differential panel - Blood CBC + DIFF Lab Routine Insomnia, unspecified type Expected: 05/07/2022, Expires: 07/07/2022 [facility] Work Phone: Comment on above: Expected: 05/07/2022 , Expires: 07/07/2022 Start: 05-07-2022 End: 07-07-2022 Comprehensive metabolic 2000 panel - Serum or Plasma COMP METABOLIC PANEL Lab Routine Insomnia, unspecified type Expected: 05/07/2022, Expires: 07/07/2022 [facility] Work Phone: Comment on above: Expected: 05/07/2022 , Expires: 07/07/2022 Start: 03-05-2022 End: 05-05-2022 CBC panel - Blood by Automated count CBC Lab Routine Encounter for long-term current use of medication Expected: 03/05/2022, Expires: 05/05/2022 [facility] Work Phone: Comment on above: Expected: 03/05/2022 , Expires: 05/05/2022 Start: 03-05-2022 End: 05-05-2022 Comprehensive metabolic 2000 panel - Serum or Plasma COMP METABOLIC PANEL Lab Routine Encounter for long-term current use of medication Expected: 03/05/2022, Expires: 05/05/2022 [facility] Work Phone: Comment on above: Expected: 03/05/2022 , Expires: 05/05/2022 Start: 02-25-2022 Influenza vaccination C [facility] Start: 2022 Mammography [facility] Start: 2022 Screening for malign ant neoplasm of breast Mammogram Screening [facility] Start: 02-25-2021 Influenza vaccination Flu vaccine (# 1) [facility] Start: 05-19-2016 HEPATITIS B (2 of 3 - Hep B Twinrix 3-dose series) HEPATITIS B (2 of 3 - Hep B Twinrix 3-dose series) [facility] Start: 05-19-2016 Hepatitis B Vaccine (2 of 3 - Hep B Twinrix 3-dose series) Hepatitis B Vaccine (2 of 3 - Hep B Twinrix 3-dose series) [facility] Start: 2009 HPV Vaccine (1 - 3-d ose SCDM series) HPV Vaccine (1 - 3-dose SCDM series) [facility] Start: 2001 Urine microalbumin profile DTAP,TDAP,TD (1 - Tdap) [facility] Start: 01-23-1988 PNEUMOCOCCAL (1 - PCV) PNEUMOCOCCAL (1 - PCV) [facility] Start: 01-23-1988 Pneumococcal vaccination Pneumococcal Vaccine (1 - PCV) [facility] Start: 1987 COVID-19 Vaccine (1) COVID-19 Vaccin e (1) [facility] Start: 1982 COVID-19 VACCINE (#1) COVID-19 VACCI NE (#1) [facility] Bacteria identified in Urine by Culture URINE CULTURE Microbiology Routine Dysuria 04/30/2023 9:30 AM EDT [facility] Work Phone: End: 06-25-2023 Bx breast w/device 1st lesion ultrasound guid US BIOPSY BREAST RT Radiology Routine Mass of right breast, unspecified quadrant 1 Occurrences starting 05/26/2022 until 06/25/2023 [facility] Work Phone: Comment on above: 1 Occurrences starti ng 05/26/2022 until 06/25/2023 COVID & INFLUENZA A/ B & RSV NAAT, ROUTINE COVID & INFLUENZA A/B & RSV NAAT, ROUTINE Microbiology Routine Flu-like symptoms URI, acute Ordered: 08/01/2023 [facility] Work Phone: Comment on above: Ordered: 08/01/2023 End: 02-09-2025 DBT Breast - bilateral screening [facility] SCREENING W TERESITA Radiology Routine Encounter for screening mammogram for breast cancer 1 Occurrences starting 01/11/2024 until 02/09/2025 [facility] Work Phone: Comment on above: 1 Occurrences starti ng 01/11/2024 until 02/09/2025 End: 08-08-2025 DBT Breast - bilateral screening [facility] SCREENING W TERES[facility] Radiology Routine Encounter for screening mammogram for breast cancer 1 Occurrences starting 07/09/2024 until 08/08/2025 [facility] Comment on above: 1 Occurrences starti ng 07/09/2024 until 08/08/2025 End: 06-10-2023 Diagnostic mammography computer-aided detcj bi [facility] DIAGNOSTIC BILAT Radiology Routine Breast pain Mass of lower inner quadrant of right breast 1 Occurrences starting 05/11/2022 until 06/10/2023 [facility] Work Phone: Comment on above: 1 Occurrences starti ng 05/11/2022 until 06/10/2023 End: 06-30-2023 Diagnostic mammography computer-aided detcj bi [facility] DIAGNOSTIC BILAT Radiology Routine Abnormal finding on radiological examination of breast 1 Occurrences starting 05/31/2022 until 06/30/2023 [facility] Work Phone: Comment on above: 1 Occurrences starti ng 05/31/2022 until 06/30/2023 End: 06-06-2023 Diagnostic mammography computer-aided detcj uni KEYON DIAGNOSTIC RT Radiology Routine Breast pain Mass of lower inner quadrant of right breast 1 Occurrences starting 05/07/2022 until 06/06/2023 [facility] Work Phone: Comment on above: 1 Occurrences starti ng 05/07/2022 until 06/06/2023 ECG COMPLETE ECG COMPLETE ECG Routine Tachycardia Ordered: 04/30/2023 [facility] Work Phone: Comment on above: Ordered: 04/30/2023 Hepb vaccine adult 2 dose schedule for im use HEPLISAV B (HEPATITIS B, ADJUVANT, ADULT) Immunization/Injection Routine Encounter for immunization Ordered: 05/07/2022 [facility] Work Phone: Comment on above: Ordered: 05/07/2022 Influenza virus A an d B RNA and SARS-CoV-2 (COVID-19) N gene panel - Respiratory specimen by MARY KAY with probe detection COVID WITH FLUA+B, ROUTINE Microbiology Routine Viral illness 01/20/2022 4:05 PM EDT [facility] Work Phone: Influenza virus A an d B RNA and SARS-CoV-2 (COVID-19) N gene panel - Respiratory specimen by MARY KAY with probe detection COVID WITH FLUA+B, ROUTINE Microbiology Routine Viral URI with cough 09/09/2022 10:51 AM EDT [facility] Work Phone: Influenza virus A an d B RNA and SARS-CoV-2 (COVID-19) N gene panel - Respiratory specimen by MARY KAY with probe detection COVID & INFLUENZA A/B NAAT, ROUTINE Microbiology Routine Acute cough 08/11/2023 9:10 [facility] Work Phone: End: 03-10-2024 [facility] SCREENING KEYON SCREENING Radiology Routine Encounter for screening mammogram for breast cancer 1 Occurrences starting 02/09/2023 until 03/10/2024 [facility] Work Phone: Comment on above: 1 Occurrences starti ng 02/09/2023 until 03/10/2024 End: 03-08-2025 MR Shoulder - right WO contrast MRI SHOULDER WO IVCON RIGHT Radiology Routine S/P right rotator cuff repair Right shoulder pain, unspecified chronicity 1 Occurrences starting 02/07/2024 until 03/08/2025 [facility] Work Phone: Comment on above: 1 Occurrences starti ng 02/07/2024 until 03/08/2025 End: 03-09-2024 MRI SHOULDER WO/W IVCON RIGHT MRI SHOULDER WO/W IVCON RIGHT Radiology Routine Tear of right glenoid labrum, subsequent encounter Chronic right shoulder pain 1 Occurrences starting 02/08/2023 until 03/09/2024 [facility] Work Phone: Comment on above: 1 Occurrences starti ng 02/08/2023 until 03/09/2024 PAP TEST PAP TEST Lab [facility] Screening for cervical cancer Encounter for screening for human papillomavirus (HPV) Ordered: 07/09/2024 [facility] Work Phone: Comment on above: Ordered: 07/09/2024 End: 12-31-2023 Radex sacrum & coccyx minimum 2 views XR SACRUM/COCCYX 3V AP/LAT Radiology Routine Coccydynia 1 Occurrences starting 12/01/2022 until 12/31/2023 [facility] Work Phone: Comment on above: 1 Occurrences starti ng 12/01/2022 until 12/31/2023 Radex sacrum & coccy x minimum 2 views XR SACRUM/COCCYX 3V AP/LAT Radiology Routine Coccydynia 12/01/2022 2:08 PM EDT [facility] Work Phone: End: 04-02-2023 Screening mammography bi 2-view breast inc cad KEYON SCREENING Radiology Routine Encounter for screening mammogram for breast cancer 1 Occurrences starting 03/03/2022 until 04/02/2023 [facility] Work Phone: Comment on above: 1 Occurrences starti ng 03/03/2022 until 04/02/2023 UA DIP B/O UA DIP B/O Lab R outine Acute cystitis with hematuria Ordered: 04/25/2023 [facility] Work Phone: Comment on above: Ordered: 04/25/2023 End: 06-06-2023 Us breast uni real time with image limited US BREAST LTD RT Radiology Routine Breast pain Mass of lower inner quadrant of right breast 1 Occurrences starting 05/07/2022 until 06/06/2023 [facility] Work Phone: Comment on above: 1 Occurrences starti ng 05/07/2022 until 06/06/2023 End: 06-30-2023 Us breast uni real time with image limited US BREAST LTD RT Radiology Routine Abnormal finding on radiological examination of breast 1 Occurrences starting 05/31/2022 until 06/30/2023 [facility] Work Phone: Comment on above: 1 Occurrences starti ng 05/31/2022 until 06/30/2023 End: 05-25-2024 XR Hand - right PA and Lateral and Oblique XR HAND GENERAL 3V PA/LAT/OBL RIGHT Radiology STAT Pain of right hand 1 Occurrences starting 05/23/2024 until 05/25/2024 [facility] Work Phone: Comment on above: 1 Occurrences starti ng 05/23/2024 until 05/25/2024 End: 10-21-2025 XR HIP BILATERAL 5V PEL/AP/LAT EACH HIP XR HIP BILATERAL 5V PEL/AP/LAT EACH HIP Radiology Routine Right hip pain 1 Occurrences starting 09/21/2024 until 10/21/2025 [facility] Work Phone: Comment on above: 1 Occurrences starti ng 09/21/2024 until 10/21/2025 XR HIP BILATERAL 5V PEL/AP/LAT EACH HIP XR HIP BILATERAL 5V PEL/AP/LAT EACH HIP Radiology Routine Right hip pain 09/21/2024 9:28 AM EDT [facility] Immunizations Immunization Date Immunization Notes Care Provider Rosaura elena 03-18-2024 tetanus toxoid, reduced diphtheria toxoid, and acellular pertussis vaccine, adsorbed Sam Teresa OUTREACH NURSE.BLUEBERRY GROWER Work Phone: [facility] 04-30-2023 influenza, injectable, quadrivalent, contains preservative Rick Anderson MD Work Phone: [facility] 04-30-2023 pneumococcal (PCV20) vaccine, 20 valent (PREVNAR 20) Rick Anderson MD Work Phone: [facility] 04-30-2023 pneumococcal Conjugate, unspecified formulation Rick Anderson MD Work Phone: [facility] Work Phone: 04-30-2023 influenza virus vaccine, unspecified formulation Sam Khan OUTREACH NURSE.BLUEBERRY GROWER Work Phone: [facility] 03-15-2022 tetanus toxoid, reduced diphtheria toxoid, and acellular pertussis vaccine, adsorbed Karen Mckee OUTREACH NURSE.DRIER TENDER NAPHTHALENE Work Phone: [facility] Work Phone: 06-16-2017 influenza virus vaccine, unspecified formulation Sam Khan OUTREACH NURSE.BLUEBERRY GROWER Work Phone: [facility] 04-21-2016 hepatitis A and hepatitis B vaccine Maile Norman MD Work Phone: [facility] Work Phone: 04-21-2016 hepatitis B vaccine, unspecified formulation Maile Norman MD Work Phone: [facility] 04-10-2009 influenza virus vaccine, unspecified formulation Maile Norman MD Work Phone: [facility] 04-26-2006 influenza virus vaccine, unspecified formulation Maile Norman MD Work Phone: [facility] Work Phone: 01-25-1998 tetanus immune globulin Maile Norman MD Work Phone: [facility] Work Phone: NEGATED: Highlighted row has not occurred!05-07-2022 Hepatitis B vaccine (recombinant), CpG adjuvanted Karen Mckee OUTREACH NURSE.DRIER TENDER NAPHTHALENE Work Phone: [facility] Work Phone: Comment on above: Deferred: Postponed Payers Date Payer Category Payer Self-pay 2023 Unknown [id number] 2022 Unknown [id number] 2021 Unknown [id number] 2019 Medicaid [place] [employer] [employer] [id number] 2019-Present [phone] [address] [place] [address] Medicaid [id number] 2019 Medicaid [id number] [id number] 1982 Unknown [id number] 2.840.1.141754.3.579.2. 1982 Unknown [id number] 2.16840.1.669654.3.579.2.627 1982 Unknown [id number] 2.840.1.643018.3.579.2.627 1982 Unknown [id number] 2.840.1.089564.3.579.2.627 1982 Unknown [id number] .840.1.094359.3.579.2.627 Unknown [id number] 2.16.840.1.448509.3.579.2.627 Unknown [id number] 2.16.840.1.191297.3.579.2.627 Unknown [id number] 2.16.840.1.043137.3.579.2.627 Unknown [id number] 2.16840.1.037184.3.579.2.462 Unknown [id number] 2.16.840.1.613380.3.579.2.462 Unknown [id number] 2.16.840.1.239572.3.579.2.462 Unknown [id number] 2.16.840.1.050197.3.579.2.462 Unknown [id number] 2.16.840.1.634545.3.579.2.462 Unknown [id number] 2.16.840.1.408212.3.579.2.462 Unknown [id number] 2.16.840.1.671427.3.579.2.462 Unknown [id number] 2.16.840.1.999503.3.579.2.462 Unknown [id number] 2.16.840.1.612059.3.579.2.462 Unknown [id number] 2.16.840.1.632299.3.579.2.462 Unknown [id number] 2.16.840.1.841048.3.579.2.462 Unknown [id number] 2.16.840.1.476830.3.579.2.462 Unknown [id number] 2.16.840.1.786765.3.579.2.462 Unknown [id number] 2.16.840.1.934353.3.579.2.462 Unknown [id number] 2.16.840.1.592381.3.579.2.462 Unknown [id number] 2.16.840.1.486287.3.579.2.462 Unknown [id number] 2.16.840.1.546814.3.579.2.462 Unknown [id number] 2.16.840.1.133680.3.579.2.462 Unknown [id number] 2.16.840.1.822882.3.579.2.462 Unknown [id number] 2.16.840.1.355107.3.579.2.462 Unknown [id number] 2.16.840.1.197169.3.579.2.462 Unknown [id number] 2.16.840.1.120838.3.579.2.462 Unknown [id number] 2.16.840.1.990247.3.579.2.462 Unknown [id number] 2.16.840.1.942435.3.579.2.462 Unknown [id number] 2.16.840.1.603171.3.579.2.462 Unknown [id number] 2.16.840.1.111360.3.579.2.462 Social History Date Type Detail Facility Start: 05-09-2016 End: 02-16-2024 Tobacco smoking status DCIS Smokes tobacco daily [facility] Start: 05-09-2016 End: 02-16-2024 Tobacco use and exposure Smokeless tobacco non-user [facility] Work Phone: Start: 07-18-2021 End: 02-04-2025 Alcohol intake Current non-drinker of alcohol (finding) [facility] Work Phone: Start: 1980 Sex Assigned At Not on file S [facility] Work Phone: Start: 02-07-2021 End: 05-25-2022 Exposure to SARS-CoV-2 (event) Not sure [facility] Work Phone: History of tobacco use Cigarette Smoker C [facility] Work Phone: Start: 01-08-2020 End: 12-01-2022 History SDOH Alcohol Frequency 1 [facility] Start: 01-08-2020 History SDOH Alcohol Std Drinks 98 [facility] Start: 01-08-2020 End: 12-01-2022 History SDOH Social Connections Phone 2 [facility] Start: 01-08-2020 End: 12-01-2022 History SDOH Social Connections Living 3 [facility] Start: 01-08-2020 End: 12-01-2022 History SDOH Physical Activity MPS 0 [facility] Start: 01-08-2020 End: 12-01-2022 History SDOH Stress 5 [facility] Start: 01-08-2020 End: 12-01-2022 History SDOH Financial 4 [facility] Start: 01-08-2020 Education 12 [facility] Start: 01-10-2022 End: 01-20-2022 Exposure to SARS-CoV-2 (event) Yes [facility] Work Phone: Start: 01-27-2009 End: 12-01-2022 Cigarettes smoked current (pack per day) - Reported 1 [facility] Start: 12-01-2022 End: 10-10-2023 Social connection and isolation panel [facility] Are you now , , , , never or living with a partner? [facility] How often to you hav e a drink containing alcohol? Never [facility] Start: 05-28-[address] inks containing alcohol do you have on a typical day? Patient does not drink [facility] How hard is it for y ou to pay for the very basics like food, housing, medical care, and heating Not very hard [facility] Do you feel stress - tense, restless, nervous, or anxious, or unable to sleep at night because your mind is troubled all the time - these days [OSQ] Very much [facility] (I/We) worried wheth er (my/our) food would run out before (I/we) got money to buy more. Never true [facility] At any time in the p ast 12 months, were you homeless or living in retirement [including now]? No [facility] Start: 06-28-2019 End: 04-29-2024 Tobacco smoking status Heavy tobacco smoker (finding) [facility] Sex Assigned At [facility] (I/We) worried wheth er (my/our) food would run out before (I/we) got money to buy more. Often true [facility] The food that (I/we) bought just didn't last, and (I/we) didn't have money to get more. Sometimes true [facility] Start: 07-07-2015 Sex Female (finding) [facility] Start: 03-07-2025 Alcoholic beverage intake Ex-drinker (finding) [facility] Medical Equipment Procedure Code Equipment Code Equipment Origin al Text Equipment Identifier Dates Kit Fiberloop 3. 2mm Suture Drill Pin Needle Shoehorn Cannula Proximal - [id number] Start: 08-29-2023 [place] Pushlock 2.9mm Short Biocomposite 12.5mm Suture Cannulated Eyelet - [id number] Start: 08-29-2023 [place] Pushlock 2.9mm Short Biocomposite 12.5mm Suture Cannulated Eyelet - [id number] Start: 08-29-2023 [place] Pushlock 2.9mm Short Biocomposite 12.5mm Suture Cannulated Eyelet - [id number] Start: 10-12-2024 [place] Pushlock 2.9mm Short Biocomposite 12.5mm Suture Cannulated Eyelet - [id number] Start: 10-12-2024 [place] Pushlock 2.9mm Short Biocomposite 12.5mm Suture Cannulated Eyelet - [id number] Start: 10-12-2024 Functional Status Date Assessment Result Facility 04-29-2024 Functional Status Standard Safet y ID band on, Call device within reach, Bed in low position, Wheels locked, Bedside Cart Locked, Visitor at bedside, Safety level maintained [facility] 02-10-2024 Functional Status Independent [facility] 02-10-2024 Functional Status ID band on, Allergy Band on, Call device within reach, Bed in low position, Wheels locked [facility] 09-26-2023 Functional Status Independent [facility] 09-26-2023 Functional Status Independent [facility] 03-15-2023 Functional Status Standard Safet y ID band on, Call device within reach, Bed in low position, Wheels locked, Upper/Half-Length side-rails up [facility] 01-25-2023 Functional Status ID band on [facility] 10-17-2014 Are you deaf, or do you have serious difficulty hearing No 10/17/2014 1:21 PM Sharmin Aguayo LPN No [facility] 10-17-2014 Are you blind, or do you have serious difficulty seeing, even when wearing glasses No 10/17/2014 1:21 PM EDT Sharmin Monge LPN No [facility] 10-17-2014 Do you have serious difficulty walking or climbing stairs No 10/17/2014 1:21 PM EDT Sharmin Monge LPN No [facility] 10-17-2014 Do you have difficul ty dressing or bathing No 10/17/2014 1:21 PM EDT Sharmin Monge LPN No [facility] 10-17-2014 Because of a physica l, mental, or emotional condition, do you have difficulty doing errands alone such as visiting a physician's office or shopping No 10/17/2014 1:21 PM EDT Sharmin Monge LPN No [facility] Mental Status Date Assessment Result Facility 04-29-2024 Mental Status Orientation Oriented x 4 [facility]3] 04-29-2024 Mental Status [facility] 02-10-2024 Mental Status Orientation Oriented x 4 [facility]3] 02-10-2024 Mental Status [facility] 09-26-2023 Mental Status Orientation Oriented x 4 [facility]3] 09-26-2023 Mental Status [facility] 01-25-2023 Mental Status Oriented x 4 [facility] 10-17-2014 Because of a physica l, mental, or emotional condition, do you have serious difficulty concentrating, remembering, or making decisions Yes 10/17/2014 1:21 PM EDT Sharmin Monge LPN Yes [facility] Clinical Notes 06-15-2016 to 03-07-2025 Stephy Simpson MD - 03/07/2025 1:33 PM EDTTelephone Encounter - Violeta Howard RN - 03/07/2025 10:05 AM EDTTelephone Encounter - Violeta Howard RN - 03/07/2025 10:05 AM EDT Note Date & Type Note Facility 03-07-2025 Note [facility] Medical Records Department [address] [place] [address] History Physical Exam 03/07/25 1349 MR#: [id number] Acct: [id number] Name: PAT MEDINA Rep #: [id number] : 1980 45 From: Stephy Simpson MD PCP: Dr. Maile Norman MD Status:PRE [place] Location: [place] History and Physical Date of Admission: 03/15/25 HPI: The patient is a 45 year old female presenting for pre-operative visit. She is scheduled for TVY, bilateral salpingectomy and possible cystoscopy, for post endometrial ablation on 03/15. Procedure discussed along with risks, benefits and complications. Other alternatives discussed for management. Consent form signed? Yes. ? PAST MEDICAL HISTORY PAST MEDICAL HISTORYDiagnosisDate???Abdominal pain, unspecified site?Abnormal glandular Papanicolaou smear of gfckyd5804/08/2006???Abn. 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 No issues in 16 years???Depression?Diarrhea?Irritable bowel syndrome?Mental disorders complicating , childbirth, or the puerperium? DEPRESSION???Migraine, unspecified, with intractable migraine, so stated, without mention of status migrainosus?Other and unspecified ovarian cyst?PMH - PAST MEDICAL HISTORY OF?Narcotic dependence requiring rehab in 2006 ???Temporomandibular joint disorders, unspecified? PAST SURGICAL HISTORY PAST SURGICAL HISTORYProcedureLateralityDate??? ADENOIDECTOMY PRIMARY BREAST; [id number]/14/2022???Fibro adenomatous changes. Focal duct ectasia.???COLPOSCOPY CERVIX UPPER/ADJACENT VAGINA?Colposcopy???DILAT ION CURETTAGE DX /THER NONOBSTETRIC???06/27/2000???Dilat ion curettage,TAB???ESOPHAGOGASTRODUO DENOSCOPY TRANSORAL DIAGNOSTIC???11/01/2011???EGD [facility] inpt H-pylori negative???HYSTEROSCOPY ENDOMETRIAL ABLATION?[facility]???LIG/TRNSXJ FLP TUBE ABDL/VAG APPR UNI/BI???04/19/2006???Tubal ligation???MYRINGOTOMY ASPIR /EUSTACHIAN TUBE NFLTJ ANES???06/27/1994??? Myringotomy/tubes???OOPHORECTOMY PARTIAL/TOTAL UNI/BI?left???REPAIR ROTATOR CUFF,[id number]???TONSILLECTO MY PRIMARY/SECONDARY ? CURRENT MEDICATIONS Current Outpatient MedicationsMedicationSigDispenseR efill???ALPRAZolam (XANAX) 2 mg tabletTake 1 tablet by mouth two times a day as needed for anxiety for up to 14 days. Patient should start on March 04, 2025.28 tablet0???multivitamin (DAILY VITAMIN ORAL)Take 1 tablet by mouth once daily.?ondansetron (ZOFRAN) 4 mg tabletTake 1 tablet by mouth three times a day as needed for nausea/vomiting.90 tablet1???albuterol HFA (PROVENTIL HFA, VENTOLIN HFA) 90 mcg/actuation inhalerInhale 2 puffs as instructed every 4 hours as needed for wheezing/shortness of breath.1 each0???traZODone (DESYREL) 100 mg tabletTake 1 tablet by mouth daily at bedtime.90 tablet3???phenylephrine HCl/acetaminophn (EXCEDRIN SINUS HEADACHE ORAL)Take by mouth as needed (headache).?acetaminophen (TYLENOL) 325 mg tabletTake 650 mg by mouth every 6 hours as needed.? No current facility-administered medications for this visit. ? ALLERGIES: Pamprin Multi-Symptom [Hagoiaqygrkcs-Bjaexqek-Psjlzkv], Buspar [Buspirone], Escitalopram, Codeine, Lamotrigine, Nitrofurantoin Macrocrystal, and Promethazine-Phenylephrine ??? PERSONAL HISTORY: [SOCIAL HISTORY] [SOCIAL HISTORY] Social History Tobacco Use ??? Smoking status: Every Day ? Current packs/day: 1.00 ? Average packs/day: 1 pack/day for 30.0 years (30.0 ttl pk-yrs) ? Types: Cigarettes ??? Smokeless tobacco: Never Vaping Use ??? Vaping status: Never Used Substance Use Topics ??? Alcohol use: Not Currently ??? Drug use: Yes ? Frequency: 7.0 times per week ? Types: Marijuana ??? FAMILY HISTORY: FAMILY HISTORY FAMILY HISTORY ProblemRelationAge of Onset???PsychiatryMother? DEPRESSION ???HypertensionFather?Cervic al CancerMaternal Grandmother?HypertensionMate rnal Grandmother?CancerMaternal Grandfather? BLADDER???HeartMaternal Grandfather? [place] EMPHYSEMA ? REVIEW OF SYMPTOMS: GENERAL: denies fevers or chills ENDOCRINOLOGY: has not been on steroids Cardiology : denies palpitations or chest pain Respiratory: denies SOB or cough Hematology: denies history of prolonged bleeding or easy bruising or VTE Allergy: Denies history of personal or family history of allergy to anesthesia ??? PHYSICAL EXAMINATION: ??? VITALS: Blood pressure 100/74, pulse 80, resp. rate 14, height 165.1 cm (5' 5), weight 54.9 kg (121 lb), last menstrual period 05/07/2009, SpO2 96%. ??? GENERAL: The patient is well nourished, we (more content not included)... [facility] 03-07-2025 Note [facility] 03-07-2025 History of Present illness Narrative Pat Medina is a 45 year old female who presents for problem visit for f/u RLQ pain. HPI: 45 YOF notes she had increased pain and went to ED after last appointment. No fever or chills. States she was told she had an ovarian cyst and was given rx for pain and sent home. Continues to have intermittent pain. OB History Gravida5 Para2 Term2 Preterm0 AB3 Living2 SAB2 IAB1 Ectopic0 Multiple0 Live Births2 [employer] History LMP: 05/07/2009, Ablation Age at Menarche: Age at First : Age at Menopause: Fresh Food [employer] History Comments: Sexual Activity: Yes; Male Contraception: Surgical, Tubal Ligation PAST MEDICAL HISTORY Diagnosis Date Abdominal pain, unspecified site Abnormal glandular Papanicolaou smear of cervix 04/08/2006 Abn. 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 No issues in [...] Laterality Date ADENOIDECTOMY PRIMARY <AGE 14 Adenoidectomy BX OF BREAST; INCISIONAL Right 06/09/2022 Fibroadenomatous changes. Focal duct ectasia. COLPOSCOPY CERVIX UPPER/ADJACENT VAGINA Colposcopy DILATION & CURETTAGE DX&/THER NONOBSTETRIC 06/27/2000 Dilation & curettage,TAB ESOPHAGOGASTRODUODENOSCOPY TRANSORAL DIAGNOSTIC 11/01/2011 EGD [facility] inpt H-pylori negative HYSTEROSCOPY ENDOMETRIAL ABLATION [facility] LIG/TRNSXJ FLP TUBE ABDL/VAG APPR UNI/BI 04/19/2006 Tubal ligation MYRINGOTOMY ASPIR&/EUSTACHIAN TUBE NFLTJ ANES 06/27/1994 Myringotomy/tubes OOPHORECTOMY PARTIAL/TOTAL UNI/BI left REPAIR ROTATOR CUFF,ACUTE Right 2023 TONSILLECTOMY PRIMARY/SECONDARY <AGE 14 06/27/1987 Tonsillectomy FAMILY HISTORY Problem Relation Age of Onset Psychiatry Mother DEPRESSION Hypertension Father Cervical Cancer Maternal Grandmother Hypertension Maternal Grandmother Cancer Maternal Grandfather BLADDER Heart Maternal Grandfather [place] & EMPHYSEMA SOCIAL HISTORY[1] Current Outpatient Medications Medication Sig ALPRAZolam (XANAX) 2 mg tablet Take 1 tablet by mouth two times a day as needed for anxiety for up to 14 days. Patient should start on March 04, 2025. multivitamin (DAILY VITAMIN ORAL) Take 1 tablet by mouth once daily. ondansetron (ZOFRAN) 4 mg tablet Take 1 tablet by mouth three times a day as needed for nausea/vomiting. albuterol HFA (PROVENTIL HFA, VENTOLIN HFA) 90 mcg/actuation inhaler Inhale 2 puffs as instructed every 4 hours as needed for wheezing/shortness of breath. traZODone (DESYREL) 100 mg tablet Take 1 tablet by mouth daily at bedtime. phenylephrine HCl/acetaminophn (EXCEDRIN SINUS HEADACHE ORAL) Take by mouth as needed (headache). acetaminophen (TYLENOL) 325 mg tablet Take 650 mg by mouth every 6 hours as needed. No current facility-administered medications for this visit. Allergies As of Date: 03/07/2025 Allergen Noted Reaction PAMPRIN MULTI-SYMPTOM [ACETAMINOP*01/19/2007 Rash, Itching, and Shortness of Breath BUSPAR [BUSPIRONE] 11/12/2020 Mental Status Change ESCITALOPRAM 09/04/2022 Intolerance CODEINE 02/03/2007 Hives and Itching LAMOTRIGINE 01/03/2017 Hives NITROFURANTOIN MACROCRYSTAL 12/24/2014 Unknown PROMETHAZINE-PHENYLEPHRINE 04/27/2010 Intolerance Fully Assessed 03/07/2025 Allergies and current medication updated:Yes SENSITIVE EXAM: The sensitive examination was discussed with the Patient or Patient's Authorized Jet Inspector. As applicable, any other physician, advance practice provider, medical student, or other health professional student that will be observing or involved in the sensitive examination for educational or training purposes was discussed with the Patient or Authorized Jet Inspector. The Patient or Authorized Jet Inspector has agreed to proceed with the sensitive examination. (Sensitive examination includes inspection and/or palpation of the breasts, pelvis, prostate and anorectal regions). EXAM: BP 100/74 Pulse 80 Resp 14 Ht 5' 5 (1.65m) Wt 121 lb (54.9kg) SpO2 96% LMP 05/07/2009 BMI 20.14 kg/(m^2). GENERAL: pleasant, female in no apparent distress ASSESSMENT AND PLAN: Assessment & Plan Post endometrial ablation syndrome Pelvic pain in female d/w her not likely due to physiological cysts Adenomyosis Deep dyspareunia d/w her r/b/a to surgical intervention for above. D/w her why I would not recommend oophorectomy and make her surgically menopausal. She states understanding and agreement w/ plan. D/w her cannot guarantee resolution of pain and likely pain will flare after surgery. D/w her short and retirement risks of surgery. Stephy Simpson MD [1] Social History Tobacco Use Smoking status: Every Day Current packs/day: 1.00 Average packs/day: 1 pack/day for 30.0 years (30.0 ttl pk-yrs) Types: Cigarettes Smokeless tobacco: Never Vaping Use Vaping status: Never Used Substance Use Topics Alcohol use: Not Currently Drug use: Yes Frequency: 7.0 times per week Types: Marijuana documented in this encounter [facility] 03-07-2025 Telephone encounter Note Patient calls to report that she has misplaced her trazodone prescription and requests new refill be sent to pharmacy. Patient has refills at pharmacy. Notified she could contact pharmacy and request refill but if it is not time to fill insurance won't cover it and she would have to pay out of pocket. Patient verbalized understanding and will contact [facility]. Violeta Howard RN [facility] 03-07-2025 Miscellaneous Notes Patient calls to report that she has misplaced her trazodone prescription and requests new refill be sent to pharmacy. Patient has refills at pharmacy. Notified she could contact pharmacy and request refill but if it is not time to fill insurance won't cover it and she would have to pay out of pocket. Patient verbalized understanding and will contact [facility]. Violeta Howard RN documented in this encounter [facility] 03-07-2025 History and physical note Pre-Op History and Physical HPI: The patient is a 45 year old female presenting for pre-operative visit. She is scheduled for TVY, bilateral salpingectomy and possible cystoscopy, for post endometrial ablation on 03/15. Procedure discussed along with risks, benefits and complications. Other alternatives discussed for management. Consent form signed? Yes. PAST MEDICAL HISTORY Diagnosis Date Abdominal pain, unspecified site Abnormal glandular Papanicolaou smear of cervix 04/08/2006 Abn. 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 No issues in [...] HISTORY Procedure Laterality Date ADENOIDECTOMY PRIMARY Adenoidectomy BX OF BREAST; INCISIONAL Right 06/09/2022 Fibroadenomatous changes. Focal duct ectasia. COLPOSCOPY CERVIX UPPER/ADJACENT VAGINA Colposcopy DILATION & CURETTAGE DX&/THER NONOBSTETRIC 06/27/2000 Dilation & curettage,TAB ESOPHAGOGASTRODUODENOSCOPY TRANSORAL DIAGNOSTIC 11/01/2011 EGD [facility] inpt H-pylori negative HYSTEROSCOPY ENDOMETRIAL ABLATION [facility] LIG/TRNSXJ FLP TUBE ABDL/VAG APPR UNI/BI 04/19/2006 Tubal ligation MYRINGOTOMY ASPIR&/EUSTACHIAN TUBE NFLTJ ANES 06/27/1994 Myringotomy/tubes OOPHORECTOMY PARTIAL/TOTAL UNI/BI left REPAIR ROTATOR CUFF,ACUTE Right 2023 TONSILLECTOMY PRIMARY/SECONDARY Tonsillectomy Current Outpatient Medications Medication Sig Dispense Refill ALPRAZolam (XANAX) 2 mg tablet Take 1 tablet by mouth two times a day as needed for anxiety for up to 14 days. Patient should start on March 04, 2025. 28 tablet 0 multivitamin (DAILY VITAMIN ORAL) Take 1 tablet by mouth once daily. ondansetron (ZOFRAN) 4 mg tablet Take 1 tablet by mouth three times a day as needed for nausea/vomiting. 90 tablet 1 albuterol HFA (PROVENTIL HFA, VENTOLIN HFA) 90 mcg/actuation inhaler Inhale 2 puffs as instructed every 4 hours as needed for wheezing/shortness of breath. 1 each 0 traZODone (DESYREL) 100 mg tablet Take 1 tablet by mouth daily at bedtime. 90 tablet 3 phenylephrine HCl/acetaminophn (EXCEDRIN SINUS HEADACHE ORAL) Take by mouth as needed (headache). acetaminophen (TYLENOL) 325 mg tablet Take 650 mg by mouth every 6 hours as needed. No current facility-administered medications for this visit. ALLERGIES: Pamprin Multi-Symptom [Qsmkszaqapxzo-Vmxfcskj-Pmeuwip], Buspar [Buspirone], Escitalopram, Codeine, Lamotrigine, Nitrofurantoin Macrocrystal, and Promethazine-Phenylephrine PERSONAL HISTORY: SOCIAL HISTORY[1] FAMILY HISTORY: FAMILY HISTORY Problem Relation Age of Onset Psychiatry Mother DEPRESSION Hypertension Father Cervical Cancer Maternal Grandmother Hypertension Maternal Grandmother Cancer Maternal Grandfather BLADDER Heart Maternal Grandfather NH & EMPHYSEMA REVIEW OF SYMPTOMS: GENERAL: denies fevers or chills ENDOCRINOLOGY: has not been on steroids Cardiology : denies palpitations or chest pain Respiratory: denies SOB or cough Hematology: denies history of prolonged bleeding or easy bruising or VTE Allergy: Denies history of personal or family history of allergy to anesthesia PHYSICAL EXAMINATION: VITALS: Blood pressure 100/74, pulse 80, resp. rate 14, height 165.1 cm (5' 5), weight 54.9 kg (121 lb), last menstrual period 05/07/2009, SpO2 96%. GENERAL: The patient is well nourished, well hydrated in no acute distress. , The patient is oriented to time, place, and person. NECK: Supple. No lynphadenopathy, normal thyroid, no thyromegaly. LUNGS: Clear to auscultation bilaterally. no wheezes, rhonchi or rales IMPRESSION: postendometrial ablation syndrome, pelvic pain, adenomyosis, dyspareunia PLAN: The risks/benefits/alternatives and personal involved for the planned total vaginal hysterectomy with bilateral salpingectomy and possible cystoscopy were reviewed with the patient. Her questions were answered to her satisfaction and she desires to proceed. Consent was signed. I reviewed with her postop instructions and expectations. I have reviewed and updated past medical and surgical history, medications and allergies Stephy Simpson M.D. [1] Social History Tobacco Use Smoking status: Every Day Current packs/day: 1.00 Average packs/day: 1 pack/day for 30.0 years (30.0 ttl pk-yrs) Types: Cigarettes Smokeless tobacco: Never Vaping Use Vaping status: Never Used Substance Use Topics Alcohol use: Not Currently Drug use: Yes Frequency: 7.0 times per week Types: Marijuana [facility] 03-07-2025 History and physical note Pre-Op History and Physical HPI: The patient is a 45 year old female presenting for pre-operative visit. She is scheduled for TVY, bilateral salpingectomy and possible cystoscopy, for post endometrial ablation on 03/15. Procedure discussed along with risks, benefits and complications. Other alternatives discussed for management. Consent form signed? Yes. PAST MEDICAL HISTORY Diagnosis Date Abdominal pain, unspecified site Abnormal glandular Papanicolaou smear of cervix 04/08/2006 Abn. 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 No issues in [...] Laterality Date ADENOIDECTOMY PRIMARY <AGE 14 Adenoidectomy BX OF BREAST; INCISIONAL Right 06/09/2022 Fibroadenomatous changes. Focal duct ectasia. COLPOSCOPY CERVIX UPPER/ADJACENT VAGINA Colposcopy DILATION & CURETTAGE DX&/THER NONOBSTETRIC 06/27/2000 Dilation & curettage,TAB ESOPHAGOGASTRODUODENOSCOPY TRANSORAL DIAGNOSTIC 11/01/2011 EGD [facility] inpt H-pylori negative HYSTEROSCOPY ENDOMETRIAL ABLATION [facility] LIG/TRNSXJ FLP TUBE ABDL/VAG APPR UNI/BI 04/19/2006 Tubal ligation MYRINGOTOMY ASPIR&/EUSTACHIAN TUBE NFLTJ ANES 06/27/1994 Myringotomy/tubes OOPHORECTOMY PARTIAL/TOTAL UNI/BI left REPAIR ROTATOR CUFF,ACUTE Right 2023 TONSILLECTOMY PRIMARY/SECONDARY <AGE 14 06/27/1987 Tonsillectomy Current Outpatient Medications Medication Sig Dispense Refill ALPRAZolam (XANAX) 2 mg tablet Take 1 tablet by mouth two times a day as needed for anxiety for up to 14 days. Patient should start on March 04, 2025. 28 tablet 0 multivitamin (DAILY VITAMIN ORAL) Take 1 tablet by mouth once daily. ondansetron (ZOFRAN) 4 mg tablet Take 1 tablet by mouth three times a day as needed for nausea/vomiting. 90 tablet 1 albuterol HFA (PROVENTIL HFA, VENTOLIN HFA) 90 mcg/actuation inhaler Inhale 2 puffs as instructed every 4 hours as needed for wheezing/shortness of breath. 1 each 0 traZODone (DESYREL) 100 mg tablet Take 1 tablet by mouth daily at bedtime. 90 tablet 3 phenylephrine HCl/acetaminophn (EXCEDRIN SINUS HEADACHE ORAL) Take by mouth as needed (headache). acetaminophen (TYLENOL) 325 mg tablet Take 650 mg by mouth every 6 hours as needed. No current facility-administered medications for this visit. ALLERGIES: Pamprin Multi-Symptom [Dlcbshfaguskj-Zhplizuw-Inuvxrk], Buspar [Buspirone], Escitalopram, Codeine, Lamotrigine, Nitrofurantoin Macrocrystal, and Promethazine-Phenylephrine PERSONAL HISTORY: SOCIAL HISTORY[1] FAMILY HISTORY: FAMILY HISTORY Problem Relation Age of Onset Psychiatry Mother DEPRESSION Hypertension Father Cervical Cancer Maternal Grandmother Hypertension Maternal Grandmother Cancer Maternal Grandfather BLADDER Heart Maternal Grandfather NH & EMPHYSEMA REVIEW OF SYMPTOMS: GENERAL: denies fevers or chills ENDOCRINOLOGY: has not been on steroids Cardiology : denies palpitations or chest pain Respiratory: denies SOB or cough Hematology: denies history of prolonged bleeding or easy bruising or VTE Allergy: Denies history of personal or family history of allergy to anesthesia PHYSICAL EXAMINATION: VITALS: Blood pressure 100/74, pulse 80, resp. rate 14, height 165.1 cm (5' 5), weight 54.9 kg (121 lb), last menstrual period 05/07/2009, SpO2 96%. GENERAL: The patient is well nourished, well hydrated in no acute distress. , The patient is oriented to time, place, and person. NECK: Supple. No lynphadenopathy, normal thyroid, no thyromegaly. LUNGS: Clear to auscultation bilaterally. no wheezes, rhonchi or rales IMPRESSION: postendometrial ablation syndrome, pelvic pain, adenomyosis, dyspareunia PLAN: The risks/benefits/alternatives and personal involved for the planned total vaginal hysterectomy with bilateral salpingectomy and possible cystoscopy were reviewed with the patient. Her questions were answered to her satisfaction and she desires to proceed. Consent was signed. I reviewed with her postop instructions and expectations. I have reviewed and updated past medical and surgical history, medications and allergies Stephy Simpson M.D. [1] Social History Tobacco Use Smoking status: Every Day Current packs/day: 1.00 Average packs/day: 1 pack/day for 30.0 years (30.0 ttl pk-yrs) Types: Cigarettes Smokeless tobacco: Never Vaping Use Vaping status: Never Used Substance Use Topics Alcohol use: Not Currently Drug use: Yes Frequency: 7.0 times per week Types: Marijuana documented in this encounter [facility] 02-28-2025 Hospital Discharge instructions Patient Education 02/28/2025 15:01:28 Ovarian Cyst Ovarian Cysts The ovaries are two small organs located on each side of a woman s uterus (womb). They are part of the female reproductive system. Ovarian cysts are sacs filled with fluid or tissue that form on or inside the ovaries. Ovarian cysts are common in women, especially during childbearing years. There are different types of cysts. Most are harmless (benign) and go away on their own. They often cause no symptoms. If symptoms do occur, they can include mild pain or pressure in the lower belly (abdomen). Cysts that are large or break (rupture) may cause more severe pain and symptoms. In these cases, you may need hospital care or treatment such as surgery. You may need more extensive treatment if a cyst causes an ovary to twist (called torsion) or if your doctor suspects your cyst is cancerous. Keep in mind that most cysts are not cancerous, however. General care To help relieve pain, your healthcare provider may recommend using otyp-kiu-ngudzes pain medicine. If needed, your provide may prescribe stronger pain medicine. Depending on the type of cyst you have, your healthcare provider may advise taking control pills. These help shrink cysts in certain cases. They may also help prevent new cysts from forming. Be sure to take these medicines as directed if they are prescribed. Your healthcare provider may advise you to watch your symptoms over time to see if they go away or worsen. Regular ultrasound tests may also be advised. These can help check if a cyst goes away or grows in size. Follow-up care Follow up with your healthcare provider, or as advised. When to seek medical advice Call your healthcare provider right away if any of these occur: Pain worsens or fails to get better with home treatment Fever of 100.4 F (38 C) or higher (or other fever amount directed by your healthcare provider) Nausea and vomiting Weakness, dizziness, or fainting Abnormal vaginal bleeding [phone] [employer]. [address] [place] [address]. All rights reserved. This information is not intended as a substitute for professional medical care. Always follow your healthcare professional's instructions. Follow Up Care 02/28/2025 13:01:42 With:MAILE NORMAN MD Address: [address] [place] [id number]- When:2-4 days [facility] 02-28-2025 Note Discharge Instructions Thank you for allowing [facility] to assist you with your healthcare needs. The following is important discharge information regarding your hospital visit. Diagnosis from Today's Visit Ovarian cyst, right What to Do Next Instructions from Your Care Team No qualifying data available. Post Acute Orders No qualifying data available. You Need to Schedule the Following Appointments Follow Up with MAILE NORMAN MD When:Within 2-4 days Where:[address] [place] [address] [id number]- Allergies LaMICtal Pamprin Maximum Pain Vicodin Itching [...] medication providers or retail pharmacies. Education Materials Ovarian Cysts The ovaries are two small organs located on each side of a woman s uterus (womb). They are part of the female reproductive system. Ovarian cysts are sacs filled with fluid or tissue that form on or inside the ovaries. Ovarian cysts are common in women, especially during childbearing years. There are different types of cysts. Most are harmless (benign) and go away on their own. They often cause no symptoms. If symptoms do occur, they can include mild pain or pressure in the lower belly (abdomen). Cysts that are large or break (rupture) may cause more severe pain and symptoms. In these cases, you may need hospital care or treatment such as surgery. You may need more extensive treatment if a cyst causes an ovary to twist (called torsion) or if your doctor suspects your cyst is cancerous. Keep in mind that most cysts are not cancerous, however. General care To help relieve pain, your healthcare provider may recommend using rdzs-mea-osdszgz pain medicine. If needed, your provide may prescribe stronger pain medicine. Depending on the type of cyst you have, your healthcare provider may advise taking control pills. These help shrink cysts in certain cases. They may also help prevent new cysts from forming. Be sure to take these medicines as directed if they are prescribed. Your healthcare provider may advise you to watch your symptoms over time to see if they go away or worsen. Regular ultrasound tests may also be advised. These can help check if a cyst goes away or grows in size. Follow-up care Follow up with your healthcare provider, or as advised. When to seek medical advice Call your healthcare provider right away if any of these occur: Pain worsens or fails to get better with home treatment Fever of 100.4 F (38 C) or higher (or other fever amount directed by your healthcare provider) Nausea and vomiting Weakness, dizziness, or fainting Abnormal vaginal bleeding [phone] [employer]. [address] [place] [address]. All rights reserved. This information is not intended as a substitute for professional medical care. Always follow your healthcare professional's instructions. Additional Information VACCINATE! IT SAVES LIVES! Members of the community who have not yet received the COVID-19 vaccine and would like to receive it can visit one of [facility] vaccine clinics. There are many vaccine clinic locations within the [facility]. For locations and available times, please visit [email or web address] It is important to note that some COVID mobile vaccine clinics are held outdoors and may be canceled in rainy or stormy conditions. To learn more about pediatric vaccinations (ages 5-11), we invite you to visit the [facility] webpage. [email or web address] To learn more about the COVID-19 vaccine, we invite you to visit the CDC website for a list of frequently asked questions. https://www.cdc.gov/coronavirus/2 019-ncov/vaccines/faq.html [facility] Patient Portal Access Instructions: Stay connected with your healthcare team and access your personal medical information anytime with the [facility] Patient Portal. If you would like a full copy of your medical records please contact the [facility] Medical Records Department Tuesday through Tuesday between 8a.m. and 4:30p.m. Please follow the directions below to access the portal: 1.Access the email account you provided upon registration to the [facility].2.Look for an invitation email from [facility].3.Open the email and access the invitation link: Accept Invitation to [employer].Fill in the required moore to create your account. Sign into www.[employer] with your username and password that you [...] you will allow to register on the [employer] Patient Portal for access to your information. You can also access the [employer] Patient Portal on the [employer]. Simply click on Health Records under [employer] and then click on the [employer] logo. HOW TO SAFELY DISPOSE OF PRESCRIPTION [...] Call your local pharmacy or go to [email or web address] to find one close to you.3.Make use of household items: Use cat litter or old coffee grounds to dispose medications if other options are not available. Mix your drugs with these household products, seal them in an airtight container and throw it into the garbage. Call [facility]: [phone] to be sure your drugs can be [...] a CHART COPY Signatures Patient Education Materials Ovarian Cyst Medication Leaflets My discharge plan and instructions have been reviewed and explained to me and I,ANA ROSAPARIS PAT Anjali understand my current condition and have read and understand these discharge instructions. I have received a written copy of the plan/instructions. If I have questions, I am aware that I should contact my doctor. 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: Date/Time: Relationship to Patient: ____ Witness Name/Signature: Date/Time: [facility] 02-28-2025 Telephone encounter Note The following approved medication requests have been transmitted electronically. Requested Prescriptions Signed Prescriptions Disp Refills ALPRAZolam (XANAX) 2 mg tablet 28 tablet 0 Sig: Take 1 tablet by mouth two times a day as needed for anxiety for up to 14 days. Patient should start on March 04, 2025. Authorizing Provider: MAILE NORMAN MD [facility] 02-28-2025 Miscellaneous Notes The following approved medication requests have been transmitted electronically. Requested Prescriptions Signed Prescriptions Disp Refills ALPRAZolam (XANAX) 2 mg tablet 28 tablet 0 Sig: Take 1 tablet by mouth two times a day as needed for anxiety for up to 14 days. Patient should start on March 04, 2025. Authorizing Provider: MAILE NORMAN MD Patient has been identified by name and date of : Yes Patient phones for refill(s): Requested Prescriptions Pending Prescriptions Disp Refills ALPRAZolam (XANAX) 2 mg tablet 28 tablet 0 Sig: Take 1 tablet by mouth two times a day as needed for anxiety for up to 14 days. Patient should start on March 04, 2025. Date of last office visit in primary care: 02/04/2025 Date of next office visit in primary care: 05/07/2025 Please advise. Thank you. Nell Haynes LPN. documented in this encounter [facility] 02-28-2025 Note Exam Date Time Procedure Performing Provider Status 02/28/25 2:[address] Abd/Pelvis w/ IV Contrast Only EDMOND VENTURA MD; Auth (Verified) [id number] ORIGINAL EXAMINATION: CT OF THE ABDOMEN AND PELVIS WITH CONTRAST02/28/2025 2:34 pm TECHNIQUE: CT of the abdomen and pelvis was performed with the administration of intravenous contrast. Multiplanar reformatted images are provided for review. Automated exposure control, iterative reconstruction, and/or weight based adjustment of the mA/kV was utilized to reduce the radiation dose to as low as reasonably achievable. COMPARISON: 04/29/2024 HISTORY: ORDERING SYSTEM PROVIDED HISTORY: Reason for Exam: rlq abd pain x3-4 days. N+V, diarrhea. Abdominal pain, acute, nonlocalized FINDINGS: The included lung bases are clear. There is no visible pleural or pericardial effusion. The heart is normal in size. The liver, spleen, adrenal glands, and pancreas are within normal limits. No filling defects seen in the gallbladder. The kidneys enhance symmetrically. The large and small bowel demonstrate no obstruction. No free intraperitoneal fluid or gas is identified. The aorta is normal in caliber. There is mild atherosclerosis of the larger arteries. There is no lymphadenopathy. Free fluid seen in the pelvis. There are rim enhancing collapsing follicle/cyst in the right ovary measuring up to 1.7 cm. There is a probable fibroid in the uterus. No filling defects seen in the urinary bladder. There is no acute fracture or aggressive osseous lesion. Bone islands noted. IMPRESSION: 1. Collapsing follicle/cyst in the right ovary with a small volume of free fluid in the pelvis. As the patient is symptomatic, ultrasound may be performed. 2. No focal inflammatory changes. The appendix is visible. 3. Other incidental findings, as above. Interpreted by: Edmond Ventura MD Preliminary Report By: Edmond Ventura MD Electronically signed By Edmond Ventura MD Dictated Date: 02/28/2025 2:38:08 PM Prelim Date: 02/28/2025 2:44:54 PM Sign Date: 02/28/2025 2:44:54 PM [facility] Tele[facility] encounter Note* Telephone Encounter - Nell Haynes LPN - 02/27/2025 5:07 PM EDT Patient has been identified by name and date of : Yes Patient phones for refill(s): Requested Prescriptions Pending Prescriptions Disp Refills ALPRAZolam (XANAX) 2 mg tablet 28 tablet 0 Sig: Take 1 tablet by mouth two times a day as needed for anxiety for up to 14 days. Patient shouldstart on March 04, 2025. Date of last office visit in primary care: 02/04/2025 Date of next office visit in primary care: 05/07/2025 Please advise. Thank you. Nell Haynes LPN. [facility]09-03-2025 Telephone encounter Note* Telephone Encounter - Camille Gaston MD - 02/27/2025 2:19 PM EDT Nothing signficant on ultrasound findings from [facility]. Labs are stable. She has small free fluid in pelvis which can cause some discomfort until that is reabsorbed. She can take ibuprofen 600mg every 6 hrs and heating pad. Nothing further to do at this time. Will place results in [facility] mailbox to review as well since she saw her. [facility] Work Phone: 1(620) 484-727109-03-2025 Miscellaneous Notes* Telephone Encounter - Camille Gaston MD - 02/27/2025 2:19 PM EDT Nothing signficant on ultrasound findings from [facility]. Labs are stable. She has small free fluid in pelvis which can cause some discomfort until that is reabsorbed. She can take ibuprofen 600mg every 6 hrs and heating pad. Nothing further to do at this time. Will place results in [facility] mailbox to review as well since she saw her. * Telephone Encounter - Marti Guzman RN - 02/27/2025 10:54 AM EDT Patient called into office. Still having phone issues and she was unable to hear me, but I could hear her. After visit with [facility] yesterday her pelvic pain became severe and she ended up going to [facility] yesterday. She said she had pelvic u/s and was told there were three ovarian cysts present. Care everywhere won't load pelvic u/s result - will attempt to fax records request. [employer] message sent back to patient for further information too. Marti Guzman RN [facility] Tele[facility] encounter Note * Telephone Encounter - Marti Guzman RN - 02/27/2025 10:54 AM EDT Patient called into office. Still having phone issues and she was unable to hear me, but I could hear her. After visit with [facility] yesterday her pelvic pain became severe and she ended up going to [facility] yesterday. She said she had pelvic u/s and was told there were three ovarian cysts present. Care everywhere won't load pelvic u/s result - will attempt to fax records request. [employer] message sent back to patient for further information too. Marti Guzman RN [facility]09-03-2025 Hospital Discharge instructions Patient Education 02/26/2025 22:38:44 Ovarian Cyst Ovarian Cysts The ovaries are two small organs located on each side of a woman s uterus (womb). They are part of the female reproductive system. Ovarian cysts are sacs filled with fluid or tissue that form on or inside the ovaries. Ovarian cysts are common in women, especially during childbearing years. There are different types of cysts. Most are harmless (benign) and go away on their own. They often cause no symptoms. If symptoms do occur, they can include mild pain or pressure in the lower belly (abdomen). Cysts that are large or break (rupture) may cause more severe pain and symptoms. In these cases, you may need hospital care or treatment such as surgery. You may need more extensive treatment if a cyst causes an ovary to twist (called torsion) or if your doctor suspects your cyst is cancerous. Keepin mind that most cysts are not cancerous, however. General care To help relieve pain, your healthcare provider may recommend using uula-kzc-wxauiiw pain medicine. If needed, your provide may prescribe stronger pain medicine. Depending on the type of cyst you have, your healthcare provider may advise taking control pills. These help shrink cysts in certain cases. They may also help prevent new cysts from forming. Besure to take these medicines as directed if they are prescribed. Your healthcare provider may advise you to watch your symptoms over time to see if they go away or worsen. Regular ultrasound tests may also be advised. These can help check if a cyst goes away or grows in size. Follow-up care Follow up with your healthcare provider, or as advised. When to seek medical advice Call your healthcare provider right away if any of these occur: Pain worsens or fails to get better with home treatment Fever of 100.4 F (38 C) or higher (or other fever amount directed by your healthcare provider) Nausea and vomiting Weakness, dizziness, or fainting Abnormal vaginal bleeding [id number] [employer]. [address] [place] [address], [place] [address]. All rights reserved. This information is not intended as a substitute for professional medical care. Always follow yourhealthcare professional's instructions. 02/26/2025 22:38:42 Uterine Fibroids Uterine Fibroids Fibroids are lumps (growths) of muscle tissue. They can form in the wall of uterus (womb). Fibroidsare very common. They are almost always benign (noncancerous). It is not known what causes fibroids. But they may run in families. Also, changes in female hormones may cause them to grow over time. Af ter menopause, fibroids may stop growing, shrink, or go away. Fibroids may or may not cause symptoms. This depends on many factors, such as the size, number, andlocations of the fibroids. If symptoms do occur, they can include: Heavy bleeding (in severe cases, this may lead to a problem called anemia) or painful periods Feeling of fullness, swelling, pressure, or pain in the lower belly (abdomen) or pelvic region Lower back pain Frequent urination Constipation Pain during sex Problems getting If fibroids are suspected, an evaluation will be done to help understand the extent of the problem.This can include a health history, exam, and tests. Based on the results, treatment can then be planned if needed. Until more details are known about your problem, you may be given guidelines similar to the home care instructions below. Home care To help control pain, vjcd-qco-ttviljp pain medicine may be advised. Take these only as directed byyour provider. If you have heavy or painful periods, keep a log of your menstrual cycle. Show the log to your provider. The information may help him or her determine if your symptoms are due to fibroids or another cause. Make certain lifestyle changes. This may include losing excess weight, being more active, or eatingless red meat. These changes may help lower the risk of fibroids in some people. They may also helpimprove overall health. Follow-up care Follow up with your healthcare provider as advised. If testing was done, you ll be told the resultswhen they are ready. Treatment options for fibroids may include medicines or procedures to help shrink or keep fibroids from growing. In severe cases, surgery may be needed to remove fibroids or to remove the uterus. If you have fibroids but no symptoms, you may not need treatment at all. However, your provider may advise regular follow-up to check fibroid size and growth. When to seek medical advice Call your healthcare provider right away if any of these occur: Heavy bleeding or painful periods that continue or don t get better with treatment Signs of anemia such as extreme fatigue, pale skin, shortness of breath with little exertion, or rapid heartbeat Weakness, dizziness, or fainting Severe pain in the pelvic or belly region Swollen or enlarged belly [id number] [employer]. [address] [place] [address], [place] [address]. All rights reserved. This information is not intended as a substitute for professional medical care. Always follow yourhealthcare professional's instructions. 02/26/2025 22:38:40 Abdominal Pain Abdominal Pain Abdominal pain is pain in the stomach or belly area. Everyone has this pain from time to time. In many cases it goes away on its own. But abdominal pain can sometimes be due to a serious problem, such as appendicitis. So it s important to know when to get help. Causes of abdominal pain There are many possible causes of abdominal pain. Common causes in adults include: Constipation, diarrhea, or gas Stomach acid flowing back up into the esophagus (acid reflux or heartburn) Severe acid reflux, called GERD (gastroesophageal reflux disease) A sore in the lining of the stomach or small intestine (peptic ulcer) Inflammation of the gallbladder, liver, or pancreas Gallstones or kidney stones Appendicitis Intestinal blockage An internal organ pushing through a muscle or other tissue (hernia) Urinary tract infections In women, menstrual cramps, fibroids, ovarian cysts, pelvic inflammatory disease, or endometriosis Inflammation or infection of the intestines, including Crohn's disease and ulcerative colitis Irritable bowel syndrome Diagnosing the cause of abdominal pain Your healthcare provider will give you a physical exam help find the cause of your pain. If needed,you will have tests. Belly pain has many possible causes. So it can be hard to find the reason for your pain. Giving details about your pain can help. Tell your provider where and when you feel the pain, and what makes it better or worse. Also let your provider know if you have other symptoms such as: Fever Tiredness Upset stomach (nausea) Vomiting Changes in bathroom habits Blood in the stool or black, tarry stool Weight loss that you can't explain (involuntary weight loss?) Also report any family history of stomach or intestinal problems, or cancers. Tell your provider about all your alcohol use and drug use. Tell your provider about all medicines you use, including herbs, vitamins, and supplements. Treating abdominal pain Some causes of pain need emergency medical treatment right away. These include appendicitis or a bowel blockage. Other problems can be treated with rest, fluids, or medicines. Your healthcare provider can give you specific instructions for treatment or self-care based on what is causing your pain. If you have vomiting or diarrhea, sip water or other clear fluids. When you are ready to eat solid foods again, start with small amounts of ihqq-jy-tgsdgu, low- fat foods. These include apple sauce, toast, or crackers. When to get medical care Call 911 or go to the hospital right away if you: Can t pass stool and are vomiting Are vomiting blood or have bloody diarrhea or black, tarry diarrhea Have chest, neck, or shoulder pain Feel like you might pass out Have pain in your shoulder blades with nausea Have sudden, severe belly pain Have new, severe pain unlike any you have felt before Have a belly that is rigid, hard, and hurts to touch Call your healthcare provider if you have: Pain for more than 5 days Bloating for more than 2 days Diarrhea for more than 5 days A fever of 100.4 F (38 C) or higher, or as directed by your healthcare provider Pain that gets worse Weight loss for no reason Continued lack of appetite Blood in your stool How to prevent abdominal pain Here are some tips to help prevent abdominal pain: Eat smaller amounts of food at each meal. Don't eat greasy, fried, or other high-fat foods. Don't eat foods that give you gas. Exercise regularly. Drink plenty of fluids. To help prevent GERD symptoms: Quit smoking. Reduce alcohol and foods that increase stomach acid. Don't use aspirin or lfti-sue-jyykqfk pain and fever medicines, if possible. This includes nonsteroidal anti-inflammatory drugs (NSAIDs). Lose excess weight. Finish eating at least 2 hours before you go to bed or lie down. Raise the head of your bed. [phone] [employer]. [address] [place], [place] [id number]. All rights reserved. This information is not intended as a substitute for professional medical care. Always follow yourhealthcare professional's instructions. Follow Up Care 02/26/2025 20:03:38 With:MAILE NORMAN MD [facility] [address] [facility] [place] [id number]- When:2-4 days [facility] 09-02-2025 Note Discharge Instructions Thank you for allowing [facility] to assist you with your healthcare needs. The following is importantdischarge information regarding your hospital visit. Diagnosis from Today's Visit Abdominal pain Fibroid Ovarian cyst Pelvic pain What to Do Next Instructions from Your Care Team No qualifying data available. Post Acute Orders No qualifying data available. You Need to Schedule the Following Appointments Follow Up with MAILE NORMAN MD When:Within 2-4 days [facility]:[address] [facility] [place] [address]- Allergies LaMICtal Pamprin Maximum Pain Vicodin Itching codeine Medications Please ask your primary doctor or pharmacist before taking any other medication not listed, including over the counter drugs, herbal medications, vitamins and or supplements as they may interact withyour home medications. What How Much When Instructions [...] medication providers or retail pharmacies. Education Materials Ovarian Cysts The ovaries are two small organs located on each side of a woman s uterus (womb). They are part of the female reproductive system. Ovarian cysts are sacs filled with fluid or tissue that form on or inside the ovaries. Ovarian cysts are common in women, especially during childbearing years. There are different types of cysts. Most are harmless (benign) and go away on their own. They often cause no symptoms. If symptoms do occur, they can include mild pain or pressure in the lower belly (abdomen). Cysts that are large or break (rupture) may cause more severe pain and symptoms. In these cases, you may need hospital care or treatment such as surgery. You may need more extensive treatment if a cyst causes an ovary to twist (called torsion) or if your doctor suspects your cyst is cancerous. Keepin mind that most cysts are not cancerous, however. General care To help relieve pain, your healthcare provider may recommend using icec-dzd-xdgtxtg pain medicine. If needed, your provide may prescribe stronger pain medicine. Depending on the type of cyst you have, your healthcare provider may advise taking control pills. These help shrink cysts in certain cases. They may also help prevent new cysts from forming. Besure to take these medicines as directed if they are prescribed. Your healthcare provider may advise you to watch your symptoms over time to see if they go away or worsen. Regular ultrasound tests may also be advised. These can help check if a cyst goes away or grows in size. Follow-up care Follow up with your healthcare provider, or as advised. When to seek medical advice Call your healthcare provider right away if any of these occur: Pain worsens or fails to get better with home treatment Fever of 100.4 F (38 C) or higher (or other fever amount directed by your healthcare provider) Nausea and vomiting Weakness, dizziness, or fainting Abnormal vaginal bleeding [id number] [employer]. [address] [place] [address], [place] [address]. All rights reserved. This information is not intended as a substitute for professional medical care. Always follow yourhealthcare professional's instructions. Uterine Fibroids Fibroids are lumps (growths) of muscle tissue. They can form in the wall of uterus (womb). Fibroidsare very common. They are almost always benign (noncancerous). It is not known what causes fibroids. But they may run in families. Also, changes in female hormones may cause them to grow over time. Af ter menopause, fibroids may stop growing, shrink, or go away. Fibroids may or may not cause symptoms. This depends on many factors, such as the size, number, andlocations of the fibroids. If symptoms do occur, they can include: Heavy bleeding (in severe cases, this may lead to a problem called anemia) or painful periods Feeling of fullness, swelling, pressure, or pain in the lower belly (abdomen) or pelvic region Lower back pain Frequent urination Constipation Pain during sex Problems getting If fibroids are suspected, an evaluation will be done to help understand the extent of the problem.This can include a health history, exam, and tests. Based on the results, treatment can then be planned if needed. Until more details are known about your problem, you may be given guidelines similar to the home care instructions below. Home care To help control pain, ldoq-ixg-xrnqsry pain medicine may be advised. Take these only as directed byyour provider. If you have heavy or painful periods, keep a log of your menstrual cycle. Show the log to your provider. The information may help him or her determine if your symptoms are due to fibroids or another cause. Make certain lifestyle changes. This may include losing excess weight, being more active, or eatingless red meat. These changes may help lower the risk of fibroids in some people. They may also helpimprove overall health. Follow-up care Follow up with your healthcare provider as advised. If testing was done, you ll be told the resultswhen they are ready. Treatment options for fibroids may include medicines or procedures to help shrink or keep fibroids from growing. In severe cases, surgery may be needed to remove fibroids or to remove the uterus. If you have fibroids but no symptoms, you may not need treatment at all. However, your provider may advise regular follow-up to check fibroid size and growth. When to seek medical advice Call your healthcare provider right away if any of these occur: Heavy bleeding or painful periods that continue or don t get better with treatment Signs of anemia such as extreme fatigue, pale skin, shortness of breath with little exertion, or rapid heartbeat Weakness, dizziness, or fainting Severe pain in the pelvic or belly region Swollen or enlarged belly [phone] [employer]. [address] [place] [address]. All rights reserved. This information is not intended as a substitute for professional medical care. Always follow yourhealthcare professional's instructions. Abdominal Pain Abdominal pain is pain in the stomach or belly area. Everyone has this pain from time to time. In many cases it goes away on its own. But abdominal pain can sometimes be due to a serious problem, such as appendicitis. So it s important to know when to get help. Causes of abdominal pain There are many possible causes of abdominal pain. Common causes in adults include: Constipation, diarrhea, or gas Stomach acid flowing back up into the esophagus (acid reflux or heartburn) Severe acid reflux, called GERD (gastroesophageal reflux disease) A sore in the lining of the stomach or small intestine (peptic ulcer) Inflammation of the gallbladder, liver, or pancreas Gallstones or kidney stones Appendicitis Intestinal blockage An internal organ pushing through a muscle or other tissue (hernia) Urinary tract infections In women, menstrual cramps, fibroids, ovarian cysts, pelvic inflammatory disease, or endometriosis Inflammation or infection of the intestines, including Crohn's disease and ulcerative colitis Irritable bowel syndrome Diagnosing the cause of abdominal pain Your healthcare provider will give you a physical exam help find the cause of your pain. If needed,you will have tests. Belly pain has many possible causes. So it can be hard to find the reason for your pain. Giving details about your pain can help. Tell your provider where and when you feel the pain, and what makes it better or worse. Also let your provider know if you have other symptoms such as: Fever Tiredness Upset stomach (nausea) Vomiting Changes in bathroom habits Blood in the stool or black, tarry stool Weight loss that you can't explain (involuntary weight loss?) Also report any family history of stomach or intestinal problems, or cancers. Tell your provider about all your alcohol use and drug use. Tell your provider about all medicines you use, including herbs, vitamins, and supplements. Treating abdominal pain Some causes of pain need emergency medical treatment right away. These include appendicitis or a bowel blockage. Other problems can be treated with rest, fluids, or medicines. Your healthcare provider can give you specific instructions for treatment or self-care based on what is causing your pain. If you have vomiting or diarrhea, sip water or other clear fluids. When you are ready to eat solid foods again, start with small amounts of oxds-me-gewmca, low- fat foods. These include apple sauce, toast, or crackers. When to get medical care Call 911 or go to the hospital right away if you: Can t pass stool and are vomiting Are vomiting blood or have bloody diarrhea or black, tarry diarrhea Have chest, neck, or shoulder pain Feel like you might pass out Have pain in your shoulder blades with nausea Have sudden, severe belly pain Have new, severe pain unlike any you have felt before Have a belly that is rigid, hard, and hurts to touch Call your healthcare provider if you have: Pain for more than 5 days Bloating for more than 2 days Diarrhea for more than 5 days A fever of 100.4 F (38 C) or higher, or as directed by your healthcare provider Pain that gets worse Weight loss for no reason Continued lack of appetite Blood in your stool How to prevent abdominal pain Here are some tips to help prevent abdominal pain: Eat smaller amounts of food at each meal. Don't eat greasy, fried, or other high-fat foods. Don't eat foods that give you gas. Exercise regularly. Drink plenty of fluids. To help prevent GERD symptoms: Quit smoking. Reduce alcohol and foods that increase stomach acid. Don't use aspirin or iawh-bao-wbatfbu pain and fever medicines, if possible. This includes nonsteroidal anti-inflammatory drugs (NSAIDs). Lose excess weight. Finish eating at least 2 hours before you go to bed or lie down. Raise the head of your bed. 9415-7239 [employer]. [address] [place] [address]. All rights reserved. This information is not intended as a substitute for professional medical care. Always follow yourhealthcare professional's instructions. Additional Information VACCINATE! IT SAVES LIVES! Members of the community who have not yet received the COVID-19 vaccine and would like to receive it can visit one of [facility] vaccine clinics. There are many vaccine clinic locations within the [facility]. For locations and available times, please visit www.gettheshot.coronavirus.[place].gov/. It is important to note that some COVID mobile vaccine clinics are held outdoors and may be canceled in rainy or stormy conditions. To learn more about pediatric vaccinations (ages 5-11), we invite you to visit the [facility] webpage. https://www.[email or web address].org/pages/5872-Zedhw-Xggccnkehax-Fkysyhnxgt-Xrdti-Sls stions.htmlTo learn more about the COVID-19 vaccine, we invite you to visit the CDC website for a list of frequently asked questions. https://www.cdc.gov/coronavirus/2019-ncov/vaccines/faq.html [facility] Patient Portal Access Instructions: Stay connected with your healthcare team and access your personal medical information anytime with the [facility] Patient Portal. If you would like a full copy of your medical records please contact the [facility] Medical Records Department Tuesday through Tuesday between 8a.m. and 4:30p.m. Please follow the directions below to access the portal: 1.Access the email account you provided upon registration to the [facility].2.Look for an invitation email from [facility].3.Open the email and access the invitation link: Accept Invitation to [facility].Fill in the required moore to create your account. Sign into www.[employer] with your username and password that you [...] you will allow to register on the [employer] Patient Portal for access to your information. You can also access the [employer] Patient Portal on the [employer] lala. Simply click on Health Records under [place] and then click on the [employer] logo. HOW TO SAFELY DISPOSE OF PRESCRIPTION MEDICATIONS Please use one of the following methods to safely dispose of your unused medications. 1.Use a drug disposal kit: the drug disposal pouch allows you to safely discard your old and unuseddrugs. Ask your nurse to give you one when you are discharged.2.Visit a local take-back location: Many local pharmacies and police departments have programs that collect old and unwanted prescriptiondrugs. Call your local pharmacy or go to http://bit.[employer]/3V6Mx9v to find one close to you.3.Make use of household items: Use cat litter or old coffee grounds to dispose medications if other options arenot available. Mix your drugs with these household products, seal them in an airtight container andthrow it into the garbage. Call [facility]: [phone] to be sure your drugs can be [...] drowsiness, such as benzodiazepines, also known as benzos,including diazepam and alprazolam, muscle relaxants or sleep aids. Never sell or share prescriptionopioids. This is illegal. Store opioids in a secure place and out of reach of others (including children, family, friends and visitors). The last page(s) of this document has been signed and retained as a CHART COPY Signatures Patient Education Materials Ovarian Cyst Uterine Fibroids Abdominal Pain Medication Leaflets My discharge plan and instructions have been reviewed and explained to me and I,PAT MEDINA understand my current condition and have read and understand these discharge instructions. I have received a written copy of the plan/instructions. If I have questions, I am aware that I should contact my doctor. 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 TECHNIQUE: Transvaginal pelvic ultrasound was performed. COMPARISON: CT abdomen pelvis 04/29/2024 HISTORY: ORDERING SYSTEM PROVIDED HISTORY: Reason for Exam: pelvic pain FINDINGS: Measurements: Uterus: 9.4 x 5.2 x 5.1cm Endometrial stripe: 0.9 cm Right Ovary:4.2 x 2.3 x 2.4 cm Left Ovary: Surgically absent. Ultrasound Findings: Uterus: Fundal region fibroid measuring 2.3 cm. Another likely fibroid in lower uterine segment measuring 1 cm.. Endometrial stripe: Endometrial stripe is heterogeneous with a small cyst at endometrial myometrial interface measuring 0.7 cm. Right Ovary: Right ovary shows echogenic structure measuring 2.1 x 1.9 cm, possibly hemorrhagic cyst. Another small cyst measuring 2 cm, possibly corpus luteal cyst. There is normal arterial and venous Doppler flow and spectral waveform. Left Ovary: Left ovary is surgically absent Free Fluid: Mild free fluid. IMPRESSION: No acute abnormality. Uterine fibroids. Likely hemorrhagic and corpus luteal cysts in right ovary. I have personally reviewed the images of this examination and agree with the resident's findings and interpretation. Interpreted by: John Butler Preliminary Report By: Anthony Ruffin Electronically signed By John Butler Dictated Date: 02/26/2025 10:17:09 PM Prelim Date: 02/26/2025 10:27:06 PM Sign Date: 02/26/2025 10:31:20 PM Ordering Provider: AVIS AUSTIN [facility]09[facility]02[facility] History of Present illness Narrative* Stephy Simpson MD - 02/26/2025 3:27 PM EDT Pat Medina is a 45 year old female who presents for problem visit for c/o RLQ pain. HPI: 45 YOF w/ chronic RLQ pain. For a year or so. B urning. Is constant. Sometimes feels like it gets swollen and gets tender. S/p tubal and ablation, left oophorectomy for cysts in the past, many years ago. Pain seems to be getting worse. Cannot have intercourse because of it. Not worse w/ activity like walking but long car ride hurt. Got up to a 7 with that. No pain w/ BM or urination. No bleeding or spotting for many years because of ablation. OB History Gravida5 Para2 Term2 Preterm0 AB3 Living2 SAB2 IAB1 Ectopic0 Multiple0 Live Births2 Fresh Food Manager History LMP: 05/07/2009, Ablation Age at Menarche: Age at First : Age at Menopause: Fresh Food Manager History Comments: Sexual Activity: Yes; Male Contraception: Surgical, Tubal Ligation PAST MEDICAL HISTORY Diagnosis Date Abdominal pain, unspecified site Abnormal glandular Papanicolaou smear of cervix 04/08/2006 Abn. 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 No issues in [...] & curettage,TAB ESOPHAGOGASTRODUODENOSCOPY TRANSORAL DIAGNOSTIC 11/01/2011 EGD [facility] inpt H-pylori negative HYSTEROSCOPY ENDOMETRIAL ABLATION [facility] LIG/TRNSXJ FLP TUBE ABDL/VAG APPR UNI/BI 04/09/2006 Tubal ligation MYRINGOTOMY ASPIR&/EUSTACHIAN TUBE NFLTJ ANES 06/27/1994 Myringotomy/tubes OOPHORECTOMY PARTIAL/TOTAL UNI/BI left REPAIR ROTATOR CUFF,ACUTE Right 2023 TONSILLECTOMY PRIMARY/SECONDARY <AGE 12 06/27/1987 Tonsillectomy FAMILY HISTORY Problem Relation Age of Onset Psychiatry Mother DEPRESSION Hypertension Father Cervical Cancer Maternal Grandmother Hypertension Maternal Grandmother Cancer Maternal Grandfather BLADDER Heart Maternal Grandfather NH & EMPHYSEMA SOCIAL HISTORY[1] Current Outpatient Medications Medication Sig ALPRAZolam (XANAX) 2 mg tablet Take 1 tablet by mouth two times a day as needed for anxiety for up to 14 days. Patient should start on February 18, 2025. multivitamin (DAILY VITAMIN ORAL) Take 1 tablet by mouth once daily. ondansetron (ZOFRAN) 4 mg tablet Take 1 [...] No current facility-administered medications for this visit. Allergies As of Date: 02/26/2025 Allergen Noted Reaction PAMPRIN MULTI-SYMPTOM [ACETAMINOP*01/19/2007 Rash, Itching, and Shortness of Breath BUSPAR [BUSPIRONE] 11/12/2020 Mental Status Change ESCITALOPRAM 09/04/2022 Intolerance OXYCODONE 10/19/2024 Vomiting CODEINE 02/03/2007 Hives and Itching LAMOTRIGINE 01/03/2017 Hives NITROFURANTOIN MACROCRYSTAL 12/24/2014 Unknown PROMETHAZINE-PHENYLEPHRINE 04/27/2010 Intolerance Fully Assessed 02/04/2025 REVIEW OF SYSTEMS Abdomen: No bloating, early satiety, indigestion, or increased flatulence. No abdominal pain, nausea, vomiting, diarrhea, or constipation. Bladder: No dysuria, gross hematuria, urinary frequency, urinary urgency, or incontinence. Allergies and current medication updated:Yes SENSITIVE EXAM: The sensitive examination was discussed with the Patient or Patient's Authorized Jet Inspector. As applicable, any other physician, advance practice provider, medical student, or other health professional student that will be observing or involved in the sensitive examination for educational or training purposes was discussed with the Patient or Authorized Jet Inspector. The Patient or Authorized Jet Inspector has agreed to proceed with the sensitive examination. (Sensitive examination includes inspection and/or palpation of the breasts, pelvis, prostate and anorectal regions). EXAM: BP 98/68 Wt 127 lb (57.6kg) LMP 05/07/2009 GENERAL: pleasant, female in no apparent distress HEENT: Normocephalic, atraumatic, mucus membranes moist, and no lesions Abdomen is soft, nondistended, no rebound or guarding tender in the very low right lower quadrant no masses palpable it is symmetrical compared to the left side no hernias appreciated PELVIC: Normal external genitalia, normal introitus, no significant cystocele or rectocele. Large parous cervix. No tenderness over the levators. Uterus is heavy, boggy, tender and mobile, anteverted ASSESSMENT AND PLAN: Assessment & Plan Pelvic pain in female Deep dyspareunia Adenomyosis we reviewed options for her pain. 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 Pain is really limited to her uterus. There is no levator spasm or tenderness. There is no abdominal wall mass. There is no hernia. When I palpate her fundus she reports this is the pain that she is describing. We reviewed medical and conservative measures versus surgical measures. After our discussionpatient declines hormonal options. Unlikely that her pain would be significantly improved with pelvic floor physical therapy as her pain is specifically limited to her uterus. We discussed risk benefits and alternatives to hysterectomy, her questions were answered to her satisfaction she desires to proceed. She has had a previous tubal sterilization and endometrial ablation and does not desire future childbearing. recent pap/pelvic US/CBC reviewed Stephy Simpson MD [1] Social History Tobacco Use Smoking status: Every Day Current packs/day: 1.00 Average packs/day: 1 pack/day for 30.0 years (30.0 ttl pk-yrs) Types: Cigarettes Smokeless tobacco: Never Vaping Use Vaping status: Never Used Substance Use Topics Alcohol use: No Drug use: Yes Types: Marijuana Comment: daily [facility] Tele[facility] encounter Note * Telephone Encounter - Sharon Sutherland RN - 02/12/2025 2:54 PM EDT Pt phoned to let pcp know the xanax 2 mg dose has worked out perfectly. States this dose is better for her. Pt asking pcp to send a refill to [facility] [place] on 02/18/25. [facility]08-19-[facility] Miscellaneous Notes* Telephone Encounter - Sharon Sutherland RN - 02/12/2025 2:54 PM EDT Pt phoned to let pcp know the xanax 2 mg dose has worked out perfectly. States this dose is better for her. Pt asking pcp to send a refill to [facility] on 02/18/25. documented in [facility] History of Present illness Narrative* Maile Norman MD - 02/04/2025 5:19 PM EDT Subjective Pat Medina is a 45 year old female. HPI Pat Medina is a 45-year-old female with a history of anxiety, presenting for a medication refill. Pat reports increased anxiety and panic episodes due to the recent loss of her alprazolam medication. She was prescribed alprazolam 2 mg BID by a previous clinician on 02/01, but lost the medication while cleaning her father's camper. Pat has been without alprazolam since 01/31 and is experiencing heightened anxiety and panic episodes. She has been in contact with crisis services almost daily for support. Pat is also dealing with significant stress related to her father's declining health. Her father has COPD and suspected metastatic cancer, and is refusing medical care. 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 Pat is currently taking trazodone 100 mg for sleep, which she has been on for 20 years and finds effective. She cannot tolerate a higher dose due to a history of a torn esophagus and bradycardiaat higher doses. She is not taking any other medications at this time. PAST MEDICAL HISTORY[1] CURRENT MEDICATIONS[2] Review of Systems Objective BP 126/75 Pulse 89 Resp 16 Wt 57.8 kg (127 lb 6.8 oz) LMP 05/07/2009 BMI 21.20 kg/m Physical Exam Constitutional: Appearance: Normal appearance. [...] Content: Thought content normal. Judgment: Judgment normal. # Anxiety (F41.9) - Recent increase in stress due to father's declining health and refusal of medical care; lost alprazolam prescription, leading to increased anxiety. - Reviewed previous note from Sam on 02/01 regarding alprazolam dosing. - Provided education on medication changes and rationale for prescription adjustments. - Prescribed alprazolam 2 mg BID for 14 days (28 tablets) to bridge until next refill date; instructed patient to notify prior to 2-week supply running out to coordinate next refill. - Continue trazodone 100 mg nightly for sleep; patient advised not to increase dose due to prior adverse events at higher doses. - Follow-up in 3 months. Maile Norman MD Recording using [employer] software for draft documentation of the visit was discussed with the patient/authorized service center representative; all questions welcomed and answered. Patient/authorized service center representative agreed to proceed [1] PAST MEDICAL HISTORY Diagnosis Date Abdominal pain, unspecified site Abnormal glandular Papanicolaou smear of cervix 04/08/2006 Abn. 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 No issues in 16 years Depression Diarrhea Irritable bowel syndrome Mental disorders complicating , childbirth, or the puerperium DEPRESSION Migraine, unspecified, with intractable migraine, so stated, without mention of status migrainosus Other and unspecified ovarian cyst PMH - PAST MEDICAL HISTORY OF Narcotic dependence requiring rehab in 2006 Temporomandibular joint disorders, unspecified [2] Current Outpatient Medications Medication Sig multivitamin (DAILY VITAMIN ORAL) Take 1 tablet by mouth once daily. ondansetron (ZOFRAN) 4 mg tablet Take 1 tablet by mouth three times a day as needed for nausea/vomiting. albuterol HFA (PROVENTIL HFA, VENTOLIN HFA) 90 mcg/actuation inhaler Inhale 2 puffs as instructed every 4 hours as needed for wheezing/shortness of breath. traZODone (DESYREL) 100 mg tablet Take 1 tablet by mouth daily at bedtime. phenylephrine HCl/acetaminophn (EXCEDRIN SINUS HEADACHE ORAL) Take by mouth as needed (headache). acetaminophen (TYLENOL) 325 mg tablet Take 650 mg by mouth every 6 hours as needed. ALPRAZolam (XANAX) 2 mg tablet Take 1 tablet by mouth two times a day as needed for anxiety for up to 14 days. Patient should start on March 04, 2025. No current facility-administered medications for this visit. documented in [facility] encounterMar[facility] Telephone encounter Note* Telephone Encounter - Naty Isabel LPN - 01/21/2025 11:28 AM EDT changed to phone note request for refills [facility]07-28-2025 Miscellaneous Notes* Telephone Encounter - Naty Isabel LPN - 01/21/2025 11:28 AM EDT changed to phone note request for refills documented in this encounterMar[facility]07-28-2025 Telephone encounter Note * Telephone Encounter - Naty Isabel LPN - 01/21/2025 11:27 AM EDT The patient has been identified by name and date of : Yes Caregiver verified no other encounters exist for this prescription request: Yes Caregiver confirmed with patient/requestor that no other refills are due, in the near future, with this provider at this time: Yes The last office visit in the department: 12/24/2024 Does the patient have a future office visit with this provider/department: Yes 02/04/2025 Requested Prescriptions Pending Prescriptions Disp Refills ALPRAZolam (XANAX) 1 mg tablet 90 tablet 0 Sig: Take 1 tablet by mouth three times a day as needed for anxiety for up to 30 days. Ok to fill today due to dose adjustment. atomoxetine (STRATTERA) 40 mg capsule 30 capsule 2 Sig: Take 1 capsule by mouth once daily. Naty Isabel LPN January 21, 2025 11:27 AM [facility]07-28-[facility] Miscellaneous Notes* Telephone Encounter - Naty Isabel LPN - 01/21/2025 11:27 AM EDT The patient has been identified by name and date of : Yes Caregiver verified no other encounters exist for this prescription request: Yes Caregiver confirmed with patient/requestor that no other refills are due, in the near future, with this provider at this time: Yes The last office visit in the department: 12/24/2024 Does the patient have a future office visit with this provider/department: Yes 02/04/2025 Requested Prescriptions Pending Prescriptions Disp Refills ALPRAZolam (XANAX) 1 mg tablet 90 tablet 0 Sig: Take 1 tablet by mouth three times a day as needed for anxiety for up to 30 days. Ok to fill today due to dose adjustment. atomoxetine (STRATTERA) 40 mg capsule 30 capsule 2 Sig: Take 1 capsule by mouth once daily. Naty Isabel LPN January 21, 2025 11:27 AM documented in this encounterMarion Hospital07-21-2025 History of Present illness Narrative* Claire Harrington PTA - 01/14/2025 11:47 AM EDT Program_ID:[id number] Access Code: [email or web address] URL: [email or web address] Date: 01-14-2025 Prepared By: Yodit Baker Program Notes Exercises - Seated Shoulder Flexion AAROM with Padmini Behind - 1 x daily - 7 x weekly - 3 sets - 10 reps - Scaption with Dumbbells - 1 x daily - 7 x weekly - 3 sets - 10 reps - Sidelying Shoulder ER with Towel and Dumbbell - 1 x daily - 7 x weekly - 3 sets - 10 reps - Scaption Wall Slide with Towel - 1 x daily - 7 x weekly - 3 sets - 10 reps - Standing Isometric Shoulder Internal Rotation at Doorway - 2 x daily - 7 x weekly - 1 sets - 10 reps - Standing Isometric Shoulder External Rotation with Doorway - 2 x daily - 7 x weekly - 1 sets - 10 reps - Isometric Shoulder Extension at Wall - 2 x daily - 7 x weekly - 1 sets - 10 reps - Isometric Shoulder Abduction at Wall - 2 x daily - 7 x weekly - 1 sets - 10 reps - Isometric Shoulder Flexion at Wall - 2 x daily - 7 x weekly - 1 sets - 10 reps * Kofi Gannon, PT - 01/14/2025 11:27 AM EDT Episode Visit Count: 4 Therapist That Will [...] fatigue and expected muscle soreness. She demonstrated difficulty with use of UBE. The patient will continue to benefit from ongoing skilled physical therapy to progress toward set goals. PLAN FOR NEXT VISIT: Asses response to isometrics for HEP. Continue with progressing light strengthening as tolerated. SUBJECTIVE: Pt states that she has some discomfort in her shoulder when she rolls on it in her sleep, but other than that doing well. Pain: Pain Pain Location: Shoulder - Right Description: Stiffness OBJECTIVE MEASURES WITH LEVEL OF FUNCTION: Easily fatigued with UBE and isometrics. TREATMENT: Therapeutic Exercise: 1: UBE x 1.5 minutes, seat #7. (1:1 througout. Pt provided update on condition.) 2: Shoulder pulleys flexion x10 3: *Shoulder isometrics ER, abduction, flexion, extension, and IR x10 with 10 second holds 4: Scapular retractions 3x10 Skilled Intervention: Patient was educated in [...] visual cuing. Billing Therapeutic Exercise Treatment Minutes: 27 Skilled Treatment Time Minutes (timed and untimed codes): 27 Total Session Time (minutes): 27 Session Start Time : 1124 Session Stop Time : 1151 Shortened session time due to pt having other commitments today. UMA Malhotra, PT documented in this encounterMar[facility]07-21-2025 [facility]07-21-2025 [facility]07-21-[facility] History of Present illness Narrative* Rody Bui APRN.MAXIM - 01/14/2025 10:27 AM EDT Pat Medina is a 44 year old female who presents for problem visit right ovarian pain for 1 year(s). HPI: Left ovary removed years ago due to large ovarian cyst. Reports started feeling dull pain onright lower pelvic region about a year ago. Thought pain would resolve itself but started increasing over the past couple of weeks. Describes pain as a burning sensation. Feels like there is a ball or lump in groin/pelvic region that is tight and painful. Sexually active with and increased pain during intercourse. Concerned she may have another large ovarian cyst. Tubal ligation for contraception. OB History Gravida5 Para2 Term2 Preterm0 AB3 Living2 SAB2 IAB1 Ectopic0 Multiple0 Live Births2 Fresh Food Manager History LMP: 05/07/2009, Ablation Age at Menarche: Age at First : Age at Menopause: Fresh Food Manager History Comments: Sexual Activity: Yes; Male Contraception: Surgical, Tubal Ligation PAST MEDICAL HISTORY Diagnosis Date Abdominal pain, unspecified site Abnormal glandular Papanicolaou smear of cervix 04/08/2006 Abn. 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 No issues in [...] & curettage,TAB ESOPHAGOGASTRODUODENOSCOPY TRANSORAL DIAGNOSTIC 11/01/2011 EGD [facility] inpt H-pylori negative LIG/TRNSXJ FLP TUBE ABDL/VAG APPR UNI/BI 04/09/2006 Tubal ligation MYRINGOTOMY ASPIR&/EUSTACHIAN TUBE NFLTJ ANES 06/27/1994 Myringotomy/tubes OOPHORECTOMY PARTIAL/TOTAL UNI/BI left REPAIR ROTATOR CUFF,ACUTE Right 2023 TONSILLECTOMY PRIMARY/SECONDARY <AGE 12 06/27/1987 Tonsillectomy FAMILY HISTORY Problem Relation Age of Onset Psychiatry Mother DEPRESSION Hypertension Father Cervical Cancer Maternal Grandmother Hypertension Maternal Grandmother Cancer Maternal Grandfather BLADDER Heart Maternal Grandfather NH & EMPHYSEMA Social History Tobacco Use Smoking status: Every Day Current packs/day: 1.00 Average packs/day: 1 pack/day for 30.0 years (30.0 ttl pk-yrs) Types: Cigarettes Smokeless tobacco: Never Vaping Use Vaping status: Never Used Substance Use Topics Alcohol use: No Drug use: Yes Types: Marijuana Comment: daily Current Outpatient Medications Medication Sig ALPRAZolam (XANAX) 1 mg tablet Take 1 tablet by mouth three times a day as needed for anxiety for up to 30 days. Ok to fill today due to dose adjustment. atomoxetine (STRATTERA) 40 mg capsule Take 1 capsule by mouth once daily. multivitamin (DAILY VITAMIN ORAL) Take 1 tablet by mouth once daily. ondansetron (ZOFRAN) 4 mg tablet Take 1 [...] tablet by mouth once daily. With food. (Patient not taking: Reported on 01/09/2025) traZODone (DESYREL) 100 mg tablet Take 1 tablet by mouth daily at bedtime. lidocaine (LIDODERM) 5 % Apply 1 Patch as directed every 24 hours. Wear patch for 12 hours and thenremove for 12 hours prior to placing new patch, apply to the right shoulder area. (Patient not taking: Reported on 01/09/2025) tiZANidine (ZANAFLEX) 4 mg tablet Take 1 [...] No current facility-administered medications for this visit. Allergies As of Date: 01/14/2025 Allergen Noted Reaction PAMPRIN MULTI-SYMPTOM [ACETAMINOP*01/19/2007 Rash, Itching, and Shortness of Breath BUSPAR [BUSPIRONE] 11/12/2020 Mental Status Change ESCITALOPRAM 09/04/2022 Intolerance OXYCODONE 10/19/2024 Vomiting CODEINE 02/03/2007 Hives and Itching LAMOTRIGINE 01/03/2017 Hives NITROFURANTOIN MACROCRYSTAL 12/24/2014 Unknown PROMETHAZINE-PHENYLEPHRINE 04/27/2010 Intolerance Fully Assessed 01/09/2025 REVIEW OF SYSTEMS Abdomen: Positive for pain in lower right pelvic region Bladder: No dysuria, gross hematuria, urinary frequency, urinary urgency, or incontinence. Breast: No breast lumps, nipple d/c, overlying skin changes, redness or skin retraction. Expanded ROS: N/A Allergies and current medication updated:Yes SENSITIVE EXAM: Sensitive exam not performed. EXAM: LMP 05/07/2009 GENERAL: pleasant, female in no apparent distress HEENT: Normocephalic and atraumatic NECK: Supple and full range of motion DERMATOLOGY: Normal BREAST: deferred CHEST: Normal inspiratory effort ABDOMEN: Deferred PELVIC: deferred BIMANUAL: deferred NEURO: alert and oriented x3,exam grossly non-focal EXTREMITIES: normal ASSESSMENT AND PLAN: Assessment & Plan Pelvic pain in female - Pelvic US ordered - Reviewed warning s/s and when to report to ED - Will follow up with patient after ultrasound results Rody Bui APRN.CNM documented in this encounterMarion Hospital07-16-2025 NotePe[facility]07-16-2025 History of Present illness Narrative* Galo Bernal APRN.CNP - 01/09/2025 3:53 PM EDT Images from the original note were not included. Subjective HPI Nontoxic-appearing 44-year-old female presents urgent care chief complaint cough rash headache vomiting abdominal pain. Duration of symptoms 3 days. Associated symptoms listed above. Most prominent symptom today is vomiting. States has vomited multiple times today. States green and that she did have some black vomit. Denies any known sick contacts. Rash is not itchy or pruritic is not painful. Cough is bothersome at night. Denies any fevers. Denies chance of . Past medical history prescription medications allergies reviewed. .Patient presents with: Sore Throat: Rash on neck, ALEJANDRA, cough, vomiting blackish, dark green x 3 days PAST MEDICAL HISTORY Diagnosis Date Abdominal pain, unspecified site Abnormal glandular Papanicolaou smear of cervix 04/08/2006 Abn. 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 No issues in [...] & curettage,TAB ESOPHAGOGASTRODUODENOSCOPY TRANSORAL DIAGNOSTIC 11/01/2011 EGD [facility] inpt H-pylori negative LIG/TRNSXJ FLP TUBE ABDL/VAG APPR UNI/BI 04/09/2006 Tubal ligation MYRINGOTOMY ASPIR&/EUSTACHIAN TUBE NFLTJ ANES 06/27/1994 Myringotomy/tubes OOPHORECTOMY PARTIAL/TOTAL UNI/BI left REPAIR ROTATOR CUFF,ACUTE Right 2023 TONSILLECTOMY PRIMARY/SECONDARY <AGE 12 06/27/1987 Tonsillectomy ALLERGIES Pamprin Multi-Symptom [Tohmjzpgefwka-Fwwdkrir-Tusglas], Buspar [Buspirone], Escitalopram,Oxycodone, Codeine, Lamotrigine, Nitrofurantoin Macrocrystal, and Promethazine-Phenylephrine MEDICATIONS ALPRAZolam (XANAX) 1 mg tablet Take 1 tablet by mouth three times a day as needed for anxiety for up to 30 days. Ok to fill today due to dose adjustment. atomoxetine (STRATTERA) 40 mg capsule Take 1 capsule by mouth once daily. multivitamin (DAILY VITAMIN ORAL) Take 1 tablet by mouth once daily. ondansetron (ZOFRAN) 4 mg tablet Take 1 [...] tablet by mouth once daily. With food. (Patient not taking: Reported on 01/09/2025) traZODone (DESYREL) 100 mg tablet Take 1 tablet by mouth daily at bedtime. lidocaine (LIDODERM) 5 % Apply 1 Patch as directed every 24 hours. Wear patch for 12 hours and thenremove for 12 hours prior to placing new patch, apply to the right shoulder area. (Patient not taking: Reported on 01/09/2025) tiZANidine (ZANAFLEX) 4 mg tablet Take 1 [...] Cancer Maternal Grandfather BLADDER Heart Maternal Grandfather NH & EMPHYSEMA Social History Tobacco Use Smoking status: Every Day Current packs/day: 1.00 Average packs/day: 1 pack/day for 30.0 years (30.0 ttl pk-yrs) Types: Cigarettes Smokeless tobacco: Never Vaping Use Vaping status: Never Used Substance Use Topics Alcohol use: No Drug use: Yes Types: Marijuana Comment: daily BP 124/78 Pulse 99 Temp 36.5 C (97.7 F) Resp 20 Wt 58.4 kg (128 lb 12 oz) LMP 05/07/2009 SpO2 95% BMI 21.42 kg/m Review of Systems Constitutional: Negative for chills, fever and malaise/fatigue. HENT: Negative for congestion, ear discharge, ear pain, sinus pain and sore throat. Eyes: Negative for blurred vision, pain, discharge and redness. Respiratory: Positive for cough. Negative for hemoptysis, sputum production, shortness of breath, wheezing and stridor. Cardiovascular: Negative for chest pain. Gastrointestinal: Positive for abdominal pain, nausea and vomiting. Negative for diarrhea. Musculoskeletal: Negative for myalgias. Skin: Positive for rash. Negative for itching. Neurological: Negative for dizziness and headaches. Objective Physical Exam Constitutional: General: She is not in acute distress. Appearance: She is not diaphoretic. HENT: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 Gabrielle Aguilera MA - 11/02/2024 10:53 AM EDT Electronic PA in process Gabrielle Aguilera MA [facility]05-09-[facility] Telephone encounter Note* Telephone Encounter - Shanon Lowe RN - 11/02/2024 10:41 AM EDT [facility] Pharmacy calling regarding pt's script for MS Contin 30 mg received today. Pharmacist Prasanth states the medication is being rejected by insurance and a prior authorization is needed. He states he sent information through Cover my Meds. RENE: [id number]. Prior authorization requested for the following medication: Medication: MS Contin 30 mg Provider: Sam Khan CNP Insurance Company Name: [employer] Pharmacy Name: [facility] Telephone number: [phone] Will send this message to PA member for review. Shanon Lowe RN [facility] History of Present illness Narrative* Sam Khan APRN.BLUEBERRY GROWER - 11/02/2024 9:58 AM EDT SUBJECTIVE Pat Medina is a 44 year [...] ortho is giving this some time. She hasbeen taking Percocet 5-325, 2 tablets, every 4 hours and is still having pain. Pharmacy concerned about her medication dose. Taking ibuprofen too, not taking meloxicam right now. Not sleeping. Avoiding constipation. She has taken the muscle relaxer some, she is getting muscle twitches in the right shoulder post- op. Not taking the gabapentin. Amitriptyline caused side [...] hours. Wear patch for 12 hours and thenremove for 12 hours prior to placing new [...] a longer acting option for her. We diddiscuss we might have to adjust the dose but we will start with morphine 30 mg BID. She has previously been seen with pain mgmt, is following closely with PCP team and with ortho. She has tried otheroptions for pain control. WE did discuss we [...] time. Discussed possible side effects including constipation. Advisedto use caution when operating heavy machinery and [...] All prescriptions have been APPROPRIATELY filled. No suspiciousactivity was identified. 11/02/2024 by Sam Khan APRN.BLUEBERRY GROWER Portions of this note have been entered by ancillary staff. I have reviewed and when necessary edited, so that they are an adequate record of my encounter with this patient Please note that parts of this document were created using voice recognition software and therefore may contain grammatical errors. Patient verbalizes understanding of instructions from today's visit and in agreement with treatmentplan. Questions answered. Agrees to call the office [...] as well as compliance with taking medications. Age- appropriate health preventative measures were discussed. Return in about 4 weeks (around 11/30/2024) for follow up on pain. Sam Khan APRN-LUIS DANIEL documented in this encounterMarion Hospital04-30-2025 Telephone encounter Note * Telephone Encounter - Maile Norman MD - 10/24/2024 7:29 PM EDT The following approved medication requests have been [...] filling RX while out of the office. [facility]04-30-2025 Miscellaneous Notes* Telephone Encounter - Maile Norman MD - 10/24/2024 7:29 PM EDT The following approved medication requests have been [...] filling RX while out of the office. * Telephone Encounter - Naty Isabel LPN - 10/23/2024 1:35 PM EDT Patient calling said she did not need the refill until 10/27. Was told by Dr Norman to call Tuesday to ask for the rx refill, she was not aware PCP is out of the office. Patient requesting note to be sent to Sam Khan. * Telephone Encounter - Nell Haynes LPN - 10/23/2024 1:25 PM EDT Patient also sent MyChart msg. Patient has [...] you. Nell Haynes LPN. documented in this encounterMarion Hospital04-29-2025 Telephone encounter Note * Telephone Encounter - Naty Isabel LPN - 10/23/2024 1:35 PM EDT Patient calling said she did not need the refill until 10/27. Was told by Dr Norman to call Tuesday to ask for the rx refill, she was not aware PCP is out of the office. Patient requesting note to be sent to Sam Khan. [facility]04-29-2025 Telephone encounter Note* Telephone Encounter - Nell Haynes LPN - 10/23/2024 1:25 PM EDT Patient also sent MyChart msg. Patient has [...] Please advise. Thank you. Nell Haynes LPN. [facility]04-25-2025 NotePe[facility]04-23-[facility]25 Telephone encounter Note* Telephone Encounter - Alis Hanna - 10/17/2024 11:19 AM EDT Patient called requesting the following refill: Percocet Patients last known Refill Date: 10-15-2024. She was in [place] ER c/o pain as the ER physician, Dr. Duff, called me. She has run out of pain meds. She told him she said no one from office has called her. I told him that is not true. I see [facility], not here and I see that her messages were addressed on Tuesday. She saidshe wants the Percocet again as the Oxy IR did not help her as much. I let her know this will be weaned to one q 6 h so should last for a week. She really should have a few more as it has not been 2-1/2 days yet. Patient Phone numbers: [phone] (home) Request is for script(s) to be escript to pharmacy. Alis Sanchez [facility]04-23-2025 Miscellaneous Notes* Telephone Encounter - Alis Hanna - 10/17/2024 11:19 AM EDT Patient called requesting the following refill: Percocet Patients last known Refill Date: 10-15-2024. She was in [place] ER c/o pain as the ER physician, Dr. Duff, called me. She has run out of pain meds. She told him she said no one from office has called her. I told him that is not true. I see shecalled [facility], not here and I see that her messages were addressed on Tuesday. She saidshe wants the Percocet again as the Oxy IR did not help her as much. I let her know this will be weaned to one q 6 h so should last for a week. She really should have a few more as it has not been 2-1/2 days yet. Patient Phone numbers: [phone] (home) Request is for script(s) to be escript to pharmacy. Alis Kwon Glaze Grinder Daniel documented in this encounterMarion Hospital04-23-2025 Telephone encounter Note * Telephone Encounter - Sangeetha Ricks - 10/17/2024 11:17 AM EDT [place] [facility] called into the cutler office in concern of this pt They state that the pt is currently in the ED in regards to her pain... The lady calling from the ED states that since the pt recently had surgery Dr. Miller is wanting to touch base with Dr. Valencia before he takes any further steps I informed [facility] that Dr. Valencia is in surgery in [place] right now but I gave them Alis's phone number- so that the ED could potentially reach Dr. Valencia sooner Please give the ED a call back at [phone] Sangeetha Ricks [facility]04-23-[facility] Miscellaneous Notes* Telephone Encounter - Sangeetha Ricks - 10/17/2024 11:17 AM EDT [place] [facility] called into the cutler office in concern of this pt They state that the pt is currently in the ED in regards to her pain... The lady calling from the ED states that since the pt recently had surgery Dr. Miller is wanting to touch base with Dr. Valencia before he takes any further steps I informed [place] ED that Dr. Valencia is in surgery in [place] right now but I gave them Marclorna's phone number- so that the ED could potentially reach Dr. Valencia sooner Please give the ED a call back at [phone] Sangeetha Ricks * Telephone Encounter - Yesenia Goyal, PEYMAN - 10/17/2024 9:58 AM EDT She should have had oxycodone AND percocet on 10/15. She has called 4 times already crying that she has no pain meds and is in severe pain You dont care that I'm in pain * Telephone Encounter - Julia Kaur - 10/17/2024 9:54 AM EDT Patient is calling in stating they are in a lot of pain and ran out of pain medication in the middle of the night. * Telephone Encounter - Nory Godinez - 10/17/2024 8:02 AM EDT Prescription Refill Information The patient has been [...] 17, 2024 8:03 AM documented in this encounterMarion Hospital04-23-2025 Telephone encounter Note * Telephone Encounter - Yesenia Goyal, RN - 10/17/2024 9:58 AM EDT She should have had oxycodone AND percocet on 10/15. She has called 4 times already crying that she has no pain meds and is in severe pain You dont care that I'm in pain [facility]04-23-20[facility] Telephone encounter Note* Telephone Encounter - Julia Kaur - 10/17/2024 9:54 AM EDT Patient is calling in stating they are in a lot of pain and ran out of pain medication in the middle of the night. [facility]04-23-2025 Telephone encounter Note* Telephone Encounter - Nory Godinez - 10/17/2024 8:02 AM EDT Prescription Refill Information The patient has been [...] Nory Godinez October 17, 2024 8:03 AM [facility]04-21-2025 Note* Addendum Note - Laura Martin PA-C - 10/15/2024 2:24 PM EDTAddended by: LAURA MARTIN on: 10/15/2024 02:24 PM Modules accepted: Orders [place] [address]-21-2025 Miscellaneous Notes* Addendum Note - Laura Martin PA-C - 10/15/2024 2:24 PM EDTAddended by: LAURA MARTIN on: 10/15/2024 02:24 PM Modules accepted: Orders * Addendum Note - Yesenia Goyal RN - 10/15/2024 2:04 PM EDTAddended by: YESENIA GOYAL on: 10/15/2024 02:04 PM Modules accepted: Orders * Telephone Encounter - Yesenia Goyal RN - 10/15/2024 12:48 PM EDT Patient called back Oxycodone is making her [...] Regardless, she is asking for nausea today * Telephone Encounter - Julia Kaur - 10/15/2024 10:03 AM EDT Prescription Refill Information The patient has been [...] up to 3 days. for pain. Julia Karu October 15, 2024 10:04 AM documented in this encounterMarion Hospital04-21-2025 Note* Addendum Note - Yesenia Goyal RN - 10/15/2024 2:04 PM EDTAddended by: YESENIA GOYAL on: 10/15/2024 02:04 PM Modules accepted: Orders [facility]04-21-2025 Telephone encounter Note* Telephone Encounter - Yesenia Goyal RN - 10/15/2024 12:48 PM EDT Patient called back Oxycodone is making her [...] Regardless, she is asking for nausea today [facility]04-21-2025 Telephone encounter Note* Telephone Encounter - Julia Kaur - 10/15/2024 10:03 AM EDT Prescription Refill Information The patient has been [...] Julia Kaur October 15, 2024 10:04 AM [facility]20[facility]04-20-2025 History of Present illness Narrative* Stuart Haynes MD - 10/14/2024 11:46 AM EDT Patient is postoperative day 2 status post [...] is being exposed to. If she continues tohave pain in the morning she will contact [...] patient. Stuart Haynes MD documented in this encounterMarion Hospital04-18-2025 NoteHNO ID: [id number] Author: RAMSEY HANDY APRN.STRAW HAT PRESSER Service: Anesthesiology Author Type: Nurse Adjunct Writing Instructor Type: Anesthesia Procedure Notes Filed: 10/12/2024 14:54 Note Text: ANESTHESIOLOGY PROCEDURE NOTE Airway General Information Procedure Start Time/Medication Administration: 10/12/2024 2:40 PM Procedure End Time: 10/12/2024 2:40 PM Patient location during procedure: OR Timeout Performed Pre-procedure: timeout performed Consent Obtained: Yes Patient identity confirmed: arm band and patient Staffing Performed by: STRAW HAT PRESSER Indications and Patient Condition Indications for airway management: anesthesia Preoxygenated: yes anesthesia circuit Patient position: sniffing Method: asleep Final Airway Details Final airway type: endotracheal airway Final Endotracheal Airway: ETT Successful intubation technique: video laryngoscopy Devices used: [employer] Endotracheal tube insertion site: oral Blade: Lata ETT size (mm): 7.0 Placement verified by: capnometry Cormack-Lehane Classification: grade I - full view of glottis Number of attempts at approach: 1 Comments Easy atraumatic x 1 SIGNATURE: Ramsey Handy APRN.STRAW HAT PRESSER PATIENT NAME: Pat Medina DATE: October 12, 2024 TIME: 2:54 PM CSN: [id number] NoteHNO ID: [id number] Author: ZACHERY SANCHEZ RN Service: ? Author Type: Registered Nurse Type: Nursing Progress Note Filed: 10/12/2024 14:10 Note Text: Dr amezcua notified pt feels like her right eye is red and swollen, and her throat feels scratchyMedina [id number] NoteHNO ID: [id number] Author: CARIN AMEZCUA MD Service: Anesthesiology Author [...] October 12, 2024 TIME: 12:46 PM CSN: [id number] Telephone encounter Note * Telephone Encounter - Sujatha Simpson LPN - 10/01/2024 9:40 AM EDT Prescription Refill Information The patient has been [...] Simpson LPN October 01, 2024 9:41 AM [facility]04-07-20[facility] Miscellaneous Notes* Telephone Encounter - Sujatha Simpson LPN - 10/01/2024 9:40 AM EDT Prescription Refill Information The patient has been [...] 01, 2024 9:41 AM documented in this encounterMarion Hospital04-05-2025 Telephone encounter Note * Telephone Encounter - Maile Norman MD - 09/29/2024 6:25 AM EDT The following approved medication requests have been [...] Made so RX lasts till surgery date. [facility]04-05-2025 Miscellaneous Notes* Telephone Encounter - Maile Norman MD - 09/29/2024 6:25 AM EDT The following approved medication requests have been [...] Made so RX lasts till surgery date. * Telephone Encounter - Otilia Douglas RN - 09/27/2024 7:53 PM EDT Pt called in checking on medication refills. I let her know that Dr Norman is out of the office on . She had previous nurse forward message from Sam Khan Fur Pointer to Dr Norman when she found out she was off. I let her know she sent I to the provider. * Telephone Encounter - Violeta Howard RN - 09/27/2024 11:25 AM EDT Patient calls to check on status of [...] requested. Violeta Howard RN documented in this encounterMarion Hospital04-04-2025 Telephone encounter Note * Telephone Encounter - Susie Interiano RN - 09/28/2024 6:13 PM EDT Reason for Call: Patient is requesting refill of percocet and Xanax Outcome: NOC is unable to refill narcotics, recommend patient contact PCP Tuesday to follow up with the refills requested . For severe pain, go to the ED for evaluation and treatment [facility]04-04-2025 Miscellaneous Notes* Telephone Encounter - Susie Interiano RN - 09/28/2024 6:13 PM EDT Reason for Call: Patient is requesting refill of percocet and Xanax Outcome: NOC is unable to refill narcotics, recommend patient contact PCP Tuesday to follow up with the refills requested . For severe pain, go to the ED for evaluation and treatment documented in this encounterMarion Hospital04-04-2025 Telephone encounter Note * Telephone Encounter - Charles Serrano - 09/28/2024 9:17 AM EDT Please reach out and assist patient in scheduling post-op physical therapy. She is having surgery 10-12-2024. She should be seen in therapy approximately 1 week post-op. She would like to go to [place]. Thank you. Charles Stanton [facility]04-04-2025 Miscellaneous Notes* Telephone Encounter - Charles Serrano - 09/28/2024 9:17 AM EDT Please reach out and assist patient in scheduling post-op physical therapy. She is having surgery 10-12-2024. She should be seen in therapy approximately 1 week post-op. She would like to go to [place]. Thank you. Charles Stanton documented in this encounterMarion Hospital04-04-2025 History and physical note * Sharmin Quinteros APRN.BLUEBERRY GROWER - 09/28/2024 9:10 AM EDT Images from the original note [...] large neck Non-male patient STOP-Bang Score: 1 [id number] Score: Age: <65 Sex: female CHF history: No Hypertension history: No Stroke/TIA/thromboembolism history: No Vascular disease history: No Diabetes history: No [id number] Score: 1 ARISCAT Score: Age: <=50 Preoperative [...] Pradhan present: no Lip Bite Test: I Microretrognathia/Micronagthia/Recessed Chin: No DENTAL Dental findings: teeth intact. [...] of Dr. Louis Valencia for consultation. My finalrecommendation will be communicated back to the requesting [...] due to scheduled above surgery because s/p rightrotator cuff repair. 09/14/2024, Dr. Louis Loya Erik Stewart is a 44-year-old female with a history [...] Positive for: headaches. Negative for: cerebral palsy, DRIER TENDER NAPHTHALENE tumor, dementia, impaired sensorium, multiple sclerosis, Parkinson's disease, peripheral neuropathy, seizures, TIA and strokes. Respiratory: Positive for: tobacco use (1ppd). Negative for: asthma, COPD, current cough, dyspnea, pneumonia within 6 weeks, URI < 2 weeks and obstructive sleep apnea. Cardiovascular: No history of HTN requiring medication, no history of angina, CHF, NH, cardiac surgery or stents. Denies rest pain, [...] > 1 time per night or hematuria. MACHINE BUFFER: Negative for abnormal vaginal bleeding, abnormal vaginal [...] Anxiety Congestive heart failure (HCC) during . 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 No issues in [...] & curettage,TAB ESOPHAGOGASTRODUODENOSCOPY TRANSORAL DIAGNOSTIC 11/01/2011 EGD [facility] inpt H-pylori negative LIG/TRNSXJ FLP TUBE ABDL/VAG APPR UNI/BI 04/09/2006 Tubal ligation MYRINGOTOMY ASPIR&/EUSTACHIAN TUBE NFLTJ ANES 06/27/1994 Myringotomy/tubes OOPHORECTOMY PARTIAL/TOTAL UNI/BI left REPAIR ROTATOR CUFF,ACUTE Right 2023 TONSILLECTOMY PRIMARY/SECONDARY Tonsillectomy FAMILY HISTORY Problem Relation Age of Onset Psychiatry Mother DEPRESSION Hypertension Father Cervical Cancer Maternal Grandmother Hypertension Maternal Grandmother Cancer Maternal Grandfather BLADDER Heart Maternal Grandfather NH & EMPHYSEMA Social History Tobacco Use Smoking [...] hours. Wear patch for 12 hours and thenremove for 12 hours prior to placing new [...] or any previous visit (from the past 73121 hours). Instructions Given to Patient: Instructions located in the after visit summary. Patient given verbal and written preop instructions and voices comprehension and compliance. SIGNATURE: Sharmin Quinteros APRN.CNP PATIENT NAME: Pat Medina DATE: September 28, 2024 TIME: 9:10 AM PAGER/CONTACT #: [facility]04-04-2025 History and physical note* Sharmin Quinteros APRN.CNP - 09/28/2024 9:10 AM EDT Images from the original note [...] large neck Non-male patient STOP-Bang Score: 1 [id number] Score: Age: <65 Sex: female CHF history: No Hypertension history: No Stroke/TIA/thromboembolism history: No Vascular disease history: No Diabetes history: No [id number] Score: 1 ARISCAT Score: Age: <=50 Preoperative [...] Pradhan present: no Lip Bite Test: I Microretrognathia/Micronagthia/Recessed Chin: No DENTAL Dental findings: teeth intact. [...] of Dr. Louis Valencia for consultation. My finalrecommendation will be communicated back to the requesting physician by way of shared medical record or letter. Subjective The patient has the following: COVID-19 Immunization Status Upcoming Covid-19 Vaccine ( season) Postponed until 03/28/2025 03/28/2024 Postponed until 03/28/2025 [...] due to scheduled above surgery because s/p rightrotator cuff repair. 09/14/2024, Dr. Louis Loya Erki Pat is a 44-year-old female with a [...] Positive for: headaches. Negative for: cerebral palsy, DRIER TENDER NAPHTHALENE tumor, dementia, impaired sensorium, multiple sclerosis, Parkinson's disease, peripheral neuropathy, seizures, TIA and strokes. Respiratory: Positive for: tobacco use (1ppd). Negative for: asthma, COPD, current cough, dyspnea, pneumonia within 6 weeks, URI < 2 weeks and obstructive sleep apnea. Cardiovascular: No history of HTN requiring medication, no history of angina, CHF, NH, cardiac surgery or stents. Denies rest pain, [...] > 1 time per night or hematuria. MACHINE BUFFER: Negative for abnormal vaginal bleeding, abnormal vaginal [...] Anxiety Congestive heart failure (HCC) during . 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 No issues in [...] & curettage,TAB ESOPHAGOGASTRODUODENOSCOPY TRANSORAL DIAGNOSTIC 11/01/2011 EGD [facility] inpt H-pylori negative LIG/TRNSXJ FLP TUBE ABDL/VAG APPR UNI/BI 04/09/2006 Tubal ligation MYRINGOTOMY ASPIR&/EUSTACHIAN TUBE NFLTJ ANES 06/27/1994 Myringotomy/tubes OOPHORECTOMY PARTIAL/TOTAL UNI/BI left REPAIR ROTATOR CUFF,ACUTE Right 2023 TONSILLECTOMY PRIMARY/SECONDARY <AGE 14 06/27/1985 Tonsillectomy FAMILY HISTORY Problem Relation Age of Onset Psychiatry Mother DEPRESSION Hypertension Father Cervical Cancer Maternal Grandmother Hypertension Maternal Grandmother Cancer Maternal Grandfather BLADDER Heart Maternal Grandfather NH & EMPHYSEMA Social History Tobacco Use Smoking [...] hours. Wear patch for 12 hours and thenremove for 12 hours prior to placing new [...] or any previous visit (from the past [id number] hours). Instructions Given to Patient: Instructions located in the after visit summary. Patient given verbal and written preop instructions and voices comprehension and compliance. SIGNATURE: Sharmin Quinteros APRN.CNP PATIENT NAME: Pat Medina DATE: September 28, 2024 TIME: 9:10 AM PAGER/CONTACT #: documented in this encounterMarion Hospital04-04-2025 Instructions* Patient Instructions* Sharmin Quinteros APRN.CNP - 09/28/2024 9:09 AM EDT Images from the original note were not included. [facility] PATIENT PREOPERATIVE INSTRUCTIONS Louis Valencia,* has scheduled you for your procedure at this surgery center: [facility]: [phone] -- [address] [facility] [address]. Please read below carefully for your personalized [...] take this medication in the morning, take themorning of surgery. meloxicam (MOBIC) 15 mg tablet [...] office. If you are currently using a dsrj-wps-mjdj injectable or oral medication for diabetes or weight loss such as Dulaglutide (Trulicity), Exenatide (Byetta, Bydureon), Liraglutide (Victoza, Saxenda), Semaglutide (Ozempic, Wegovy, Rybelsus), or Tirzepatide (Mounjaro), the medicine should be stopped at least 7 days before surgery. These medicines can cause food to remain in your stomach for a very longtime and increase the risks from surgery and [...] Procedures: - YOU MUST HAVE A RESPONSIBLE CLEANER FURNITURE TAKE YOU HOME. A PRODUCT SAFETY TEST ENGINEER OR BUSINESS TEST ANALYST CANNOT BE MADE A RESPONSIBLE CLEANER FURNITURE. - We recommend that a responsible person stays with you overnight to take care of you. - You cannot stay in a hotel alone after outpatient surgery. You will not be permitted to have yoursurgery, if you do not have someone to [...] Advance Directive, please fax a copy to [phone] or email to for it to be added to your chart. If you do not have an Advance Directive, you can find the appropriate form and more information at [email or web address]. We recommend that youcomplete the Advance Directive form found on the website and bring it with you the day of your surgery. It can be witnessed and scanned into your chart that day. Sharmin Quinteros APRN.BLUEBERRY GROWER documented in this encounterMarion Hospital04-03-2025 Telephone encounter Note * Telephone Encounter - Otiila Douglas RN - 09/27/2024 7:53 PM EDT Pt called in checking on medication refills. I let her know that Dr Norman is out of the office on . She had previous nurse forward message from Sam Khan Fur Pointer to Dr Norman when she found out she was off. I let her know she sent I to the provider. [facility]04-03-[facility] Telephone encounter Note* Telephone Encounter - Violeta Howard RN - 09/27/2024 11:25 AM EDT Patient calls to check on status of [...] Dr. Norman as requested. Violeta Howard RN [facility]03-28-2025 History of Present illness Narrative* Constanza Stafford, RT(R) - 09/21/2024 9:20 AM EDT Radiology Service Progress Note PATIENT NAME: Pat Medina DATE OF SERVICE: September 21, 2024 TIME: 9:17 AM PATIENT IDENTITY VERIFICATION COMPLETED USING TWO (2) IDENTIFIERS: Name and Date of confirmedby patient verbally. FALL SCREENING: Has the patient had 2 falls in the last year or 1 fall with injury or currently using an Ambulatory Assistive Device (Walker, Cane, Wheelchair, Crutches, etc.)? No PATIENT GENDER DATA: Assigned female at . status: : No status:NO. PATIENT RELEVANT IMPLANT DATA REVIEWED: Not Applicable PATIENT PRESENTS WITH AN IMPLANTABLE OR ATTACHED NUTRITION THERAPIST: No RADIOLOGY DEPARTMENT: General X-ray: Exam(s) Completed: Pelvis X-Ray: Pelvis with Hip Bilateral PERIPHERAL IV DATA: Not applicable SIGNED BY: RT Verónica(R) September 21, 2024 9:17 AM documented in this encounterMarion Hospital03-28-2025 NotePe[facility]-28-[facility]-28-[facility] History of Present illness Narrative* Sam Khan APRN.BLUEBERRY GROWER - 09/21/2024 8:59 AM EDT Images from the original note [...] to the knee. She notes that the discomfortis relieved when her leg is extended backward [...] to ensure that her current prescription is adjustedaccordingly. She anticipates needing a higher dose of pain medication immediately after the surgerybut expresses a strong desire to wean off the medication as soon as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 Patient's Authorized Jet Inspector. As applicable, any other physician, advance practice provider, medical student, or other health professional student that will be observing or involved in the sensitive examination for educational or training purposes was discussed with the Patient or Authorized Jet Inspector. The Patient or Authorized Jet Inspector has agreed to proceed with the sensitive [...] external genitalia normal, normal Bartholin's glands, urethra, Lynwood's glands, no vulvar lesions, no cervical lesions, [...] STIMULATING HORMONE - ESTRADIOL-17B BLD Cecile Patricia APRN.BLUEBERRY GROWER documented in this encounterMarion Hospital01-11-2025 Telephone encounter Note * Telephone Encounter - Adelina Porras MA - 07/07/2024 10:55 AM EST Pt notified and voiced understanding. Adelina Porras MA [facility]01-11-2025 Miscellaneous Notes* Telephone Encounter - Adelina Porras MA - 07/07/2024 10:55 AM EST Pt notified and voiced understanding. Adelina Porras MA * Telephone Encounter - Jorge Luis Ace MD - 07/07/2024 10:53 AM EST I am not able to do that as the occupational therapist doctor. Jorge Luis Ace MD * Telephone Encounter - Otilia Douglas RN - 07/07/2024 9:12 AM EST Pt called in and reports her mother in law in [place], [place] just had a heart attack. She states her and he are going down there after he gets done with work tonight. She states she is going to try and get her into a retirement up here. She states provider put in to have her Percocet refilled on Tue07/10/24. She is asking if provider would allow her to get it filled early. I told her another provider may not, and they could call it into as pharmacy where she goes to. Please call and advise. documented in this encounterMarion Hospital01-11-2025 Telephone encounter Note * Telephone Encounter - Jorge Luis Ace MD - 07/07/2024 10:53 AM EST I am not able to do that as the occupational therapist doctor. Jorge Luis Ace MD [facility] Work Phone: [phone]) 697-100401-11-2025 Telephone encounter Note* Telephone Encounter - Otilia Douglas RN - 07/07/2024 9:12 AM EST Pt called in and reports her mother in law in [place], [place] just had a heart attack. She states her and he are going down there after he gets done with work [employer]. She states she is going to try and get her into a retirement up here. She states provider put in to have her Percocet refilled on Tue07/10/24. She is asking if provider would allow her to get it filled early. I told her another provider may not, and they could call it into as pharmacy where she goes to. Please call and advise. [facility]01-10-2025 Telephone encounter Note* Telephone Encounter - Maile Norman MD - 07/06/2024 7:46 PM EST RX filled 06/26 per PDMP and med [...] 10, 2024. Authorizing Provider: MAILE NORMAN MD [facility]01-10-2025 Miscellaneous Notes* Telephone Encounter - Maile Norman MD - 07/06/2024 7:46 PM EST RX filled 06/26 per PDMP and med [...] 10, 2024. Authorizing Provider: MAILE NORMAN MD * Telephone Encounter - Zara Jay LPN - 07/06/2024 2:00 PM EST Last script filled on 06/23/2024. Pended Zara Jay LPN documented in this encounterMarion Hospital01-10-2025 Telephone encounter Note * Telephone Encounter - Zara Jay LPN - 07/06/2024 2:00 PM EST Last script filled on 06/23/2024. Pended Zara Jay LPN [facility]01-06-2025 Telephone encounter Note* Telephone Encounter - Feli Walton LPN - 07/02/2024 2:19 PM EST Prescription Refill Information The patient has been [...] Walton LPN July 02, 2024 2:19 PM [facility]01-06-2025 Miscellaneous Notes* Telephone Encounter - Feli Walton LPN - 07/02/2024 2:19 PM EST Prescription Refill Information The patient has been [...] 02, 2024 2:19 PM documented in this encounterMarion Hospital12-28-2024 Telephone encounter Note * Telephone Encounter - Maile Norman MD - 06/23/2024 2:48 AM EST The following approved medication requests have been transmitted electronically. Requested Prescriptions Signed Prescriptions Disp Refills oxyCODONE-acetaminophen (PERCOCET) 5-325 mg tablet 56 tablet 0 Sig: Take 1 tablet by mouth every 6 hours as needed for pain for up to 14 days. Patient should start on June 26, 2024. Authorizing Provider: MAILE NORMAN MD [facility]12-28-2024 Miscellaneous Notes* Telephone Encounter - Maile Norman MD - 06/23/2024 2:48 AM EST The following approved medication requests have been transmitted electronically. Requested Prescriptions Signed Prescriptions Disp Refills oxyCODONE-acetaminophen (PERCOCET) 5-325 mg tablet 56 tablet 0 Sig: Take 1 tablet by mouth every 6 hours as needed for pain for up to 14 days. Patient should start on June 26, 2024. Authorizing Provider: MAILE NORMAN MD * Telephone Encounter - Sujatha Simpson LPN - 06/22/2024 3:22 PM EST Prescription Refill Information The patient has been [...] 22, 2024 3:23 PM documented in this encounterMarion Hospital12-28-2024 Telephone encounter Note * Telephone Encounter - Maile Norman MD - 06/23/2024 1:49 AM EST The following approved medication requests have been transmitted electronically. Requested Prescriptions Pending Prescriptions Disp Refills meloxicam (MOBIC) 15 mg tablet 30 tablet 5 Sig: Take 1 tablet by mouth once daily. With food. Maile Norman MD [facility]12-28-2024 Miscellaneous Notes* Telephone Encounter - Maile Norman MD - 06/23/2024 1:49 AM EST The following approved medication requests have been transmitted electronically. Requested Prescriptions Pending Prescriptions Disp Refills meloxicam (MOBIC) 15 mg tablet 30 tablet 5 Sig: Take 1 tablet by mouth once daily. With food. Maile Norman MD * Telephone Encounter - Sujatha Simpson LPN - 06/22/2024 3:23 PM EST Prescription Refill Information The patient has been [...] 22, 2024 3:24 PM documented in this encounterMarion Hospital12-27-2024 Telephone encounter Note * Telephone Encounter - Sujatha Simpson LPN - 06/22/2024 3:23 PM EST Prescription Refill Information The patient has been [...] Simpson LPN June 22, 2024 3:24 PM [facility]12-27-2024 Telephone encounter Note* Telephone Encounter - Sujatha Simpson LPN - 06/22/2024 3:22 PM EST Prescription Refill Information The patient has been [...] Simpson LPN June 22, 2024 3:23 PM [facility]12-20-2024 History of Present illness Narrative* Charles Ortiz RT(Marcos) - 06/15/2024 1:00 PM EST Radiology Service Progress Note PATIENT NAME: Pat Medina DATE OF SERVICE: June 15, 2024 TIME: 1:08 PM PATIENT IDENTITY VERIFICATION COMPLETED USING TWO (2) IDENTIFIERS: Name and Date of confirmedby patient verbally. FALL SCREENING: Has the patient had 2 falls in the last year or 1 fall with injury or currently using an Ambulatory Assistive Device (Walker, Cane, Wheelchair, Crutches, etc.)? No PATIENT GENDER DATA: Female. status: : No status: NO. PATIENT RELEVANT IMPLANT DATA REVIEWED: Yes PATIENT PRESENTS WITH AN IMPLANTABLE OR ATTACHED NUTRITION THERAPIST: No RADIOLOGY DEPARTMENT: MR; Exam(s) Completed: Upper MSK: Shoulder, right PERIPHERAL IV DATA: Not applicable SIGNED BY: RT Krys(Marcos) June 15, 2024 1:08 PM documented in this encounterMarion Hospital12-20-2024 NotePe[facility]12-15-2024 Telephone encounter Note* Telephone Encounter - Maile Norman MD - 06/10/2024 4:17 PM EST The following approved medication requests have been transmitted electronically. Requested Prescriptions Signed Prescriptions Disp Refills oxyCODONE-acetaminophen (PERCOCET) 5-325 mg tablet 56 tablet 0 Sig: Take 1 tablet by mouth every 6 hours as needed for pain for up to 14 days. Patient should start on June 12, 2024. Authorizing Provider: MAILE NORMAN MD [facility]12-15-2024 Miscellaneous Notes* Telephone Encounter - Maile Norman MD - 06/10/2024 4:17 PM EST The following approved medication requests have been transmitted electronically. Requested Prescriptions Signed Prescriptions Disp Refills oxyCODONE-acetaminophen (PERCOCET) 5-325 mg tablet 56 tablet 0 Sig: Take 1 tablet by mouth every 6 hours as needed for pain for up to 14 days. Patient should start on June 12, 2024. Authorizing Provider: MAILE NORMAN MD * Telephone Encounter - Amber Minaya LPN - 06/08/2024 9:05 AM EST The patient has been identified by name [...] 08, 2024 9:06 AM documented in this encounterMarion Hospital12-13-2024 Telephone encounter Note * Telephone Encounter - Amber Minaya LPN - 06/08/2024 9:05 AM EST The patient has been identified by name [...] Minaya LPN June 08, 2024 9:06 AM [facility]12-10-2024 Telephone encounter Note* Telephone Encounter - Naty Isabel LPN - 06/05/2024 2:54 PM EST Patient calling asking to have General surgery consult faxed to [facility] at [phone]. Printed face sheet, xray report, office notes, consult and faxed as requested. [facility]12-10-2024 Miscellaneous Notes* Telephone Encounter - Naty Isabel LPN - 06/05/2024 2:54 PM EST Patient calling asking to have General surgery consult faxed to [facility] at [phone]. Printed face sheet, xray report, office notes, consult and faxed as requested. documented in this encounterMarion Hospital12-03-2024 Telephone encounter Note * Telephone Encounter - Nory Godinez - 05/29/2024 1:53 PM EST Images from the original note were not included. Doyle Dallas DanielAlis to [place] ML 05/29/24 1:17 PM If patient called your office then please return the call. Next time, just have patient call [place] [facility] or have them contact [facility] PreAccess Dept if you don't want to address patient's question because they have not been seen at [facility]. Thank you Called and spoke with the patient. Explained to the patient that because all information about her claim and appointments has not cometo the [place] office we were unable to assist her when she called earlier. Told her that a message has been sent over to Lizette Villasenor PA-C and Alis regarding her call from earlier. Patient stated her and her trademark attorney have left multiple messages at 's [place] office. Gave her the number for Alis ('[facility] the number for the [facility] Pre-Access 3rd libertarian per the message above from Alis, and the number for the [facility]. [facility]12-03-2024 Miscellaneous Notes* Telephone Encounter - Nory Godinez - 05/29/2024 1:53 PM EST Images from the original note were not included. Doyle Glaze Grinder DanielAlis to [place] ML 05/29/24 1:17 PM If patient called your office then please return the call. Next time, just have patient call [place] [facility] or have them contact [facility] PreAccess Dept if you don't want to address patient's question because they have not been seen at [facility]. Thank you Called and spoke with the patient. Explained to the patient that because all information about her claim and appointments has not cometo the [place] office we were unable to assist her when she called earlier. Told her that a message has been sent over to Lizette Villasenor PA-C and Alis regarding her call from earlier. Patient stated her and her trademark attorney have left multiple messages at 's [place] office. Gave her the number for Alis ('[facility]), the number for the [facility] Pre-Access 3rd libertarian per the message above from Alis, and the number for the [facility]. * Telephone Encounter - Nory Godinez - 05/29/2024 12:54 PM EST Routing to 's Pharmacy Messenger for [place] where patient has been seen exclusively. Closing encounter for [place] Team. * Telephone Encounter - Kimberly England - 05/29/2024 12:21 PM EST Patient called stating she needs a letter from Dr Valencia stating why a rotator cuff tear and bicep tendonitis would not show up on an MRI for a court date she had on 05/31/2024. Her trademark attorney needs this letter SIM. Fax number for trademark attorney's office is [phone] * Telephone Encounter - Yesenia Goyal RN - 05/29/2024 7:49 AM EST Patient calling She was inquiring about a ltter her compliance program manager had sent Per pt, Dr Valencia agreed to relate her rotator cuff tear to her work injury for the C9 She has court on May 31 and she needs a letter written by May 30 She states she did call Alis at the [place] office and left a message Please advise documented in this encounterMarion Hospital12-03-2024 Telephone encounter Note * Telephone Encounter - Nory Godinez - 05/29/2024 12:54 PM EST Routing to 's Pharmacy Messenger for [place] where patient has been seen exclusively. Closing encounter for [place] Team. [facility]12-03-2024 Telephone encounter Note* Telephone Encounter - Kimberly England - 05/29/2024 12:21 PM EST Patient called stating she needs a letter from Dr Valencia stating why a rotator cuff tear and bicep tendonitis would not show up on an MRI for a court date she had on 05/31/2024. Her trademark attorney needs this letter SIM. Fax number for trademark attorney's office is [phone] [facility]12-03-2024 Telephone encounter Note* Telephone Encounter - Yesenia Goyal RN - 05/29/2024 7:49 AM EST Patient calling She was inquiring about a ltter her compliance program manager had sent Per pt, Dr Valencia agreed to relate her rotator cuff tear to her work injury for the C9 She has court on May 31 and she needs a letter written by May 30 She states she did call Marcene at the [place] office and left a message Please advise [facility]12-02-2024 Telephone encounter Note* Telephone Encounter - Maile Norman MD - 05/28/2024 6:47 PM EST The following approved medication requests have been transmitted electronically. Requested Prescriptions Signed Prescriptions Disp Refills oxyCODONE-acetaminophen (PERCOCET) 5-325 mg tablet 56 tablet 0 Sig: Take 1 tablet by mouth every 6 hours as needed for pain for up to 14 days. Patient should start on May 29, 2024. Authorizing Provider: MAILE NORMAN MD [facility]12-02-2024 Miscellaneous Notes* Telephone Encounter - Maile Norman MD - 05/28/2024 6:47 PM EST The following approved medication requests have been transmitted electronically. Requested Prescriptions Signed Prescriptions Disp Refills oxyCODONE-acetaminophen (PERCOCET) 5-325 mg tablet 56 tablet 0 Sig: Take 1 tablet by mouth every 6 hours as needed for pain for up to 14 days. Patient should start on May 29, 2024. Authorizing Provider: MAILE NORMAN MD * Telephone Encounter - Feli Walton LPN - 05/28/2024 4:32 PM EST Prescription Refill Information The patient has been [...] Walton LPN May 28, 2024 4:32 PM * Telephone Encounter - Sharon Sutherland RN - 05/28/2024 11:11 AM EST Patient reports she needs refill by tomorrow. Last ov w/Fur Pointer: 05-15-24 Next ov w/pcp: 07-31-24 documented in this encounterMarion Hospital12-02-2024 Telephone encounter Note * Telephone Encounter - Feli Walton LPN - 05/28/2024 4:32 PM EST Prescription Refill Information The patient has been [...] Walton LPN May 28, 2024 4:32 PM [facility]12-02-2024 Telephone encounter Note* Telephone Encounter - Sharon Sutherland RN - 05/28/2024 11:11 AM EST Patient reports she needs refill by tomorrow. Last ov w/Fur Pointer: 05-15-24 Next ov w/pcp: 07-31-24 [facility]11-29-2024 Telephone encounter Note* Telephone Encounter - Gabrielle Aguilera MA - 05/25/2024 2:26 PM EST Patient was notified Gabrielle Aguilera MA [facility]11-29-2024 Miscellaneous Notes* Telephone Encounter - Gabrielle Aguilera MA - 05/25/2024 2:26 PM EST Patient was notified Gabrielle Aguilera MA * Telephone Encounter - Galo Bernal APRN.CNP - 05/25/2024 1:12 PM EST Please inform patient that an x-ray is negative. Follow-up with PCP if symptoms are not improving. Galo Bernal APRN.LUIS DANIEL documented in this encounterMarion Hospital11-29-2024 Telephone encounter Note * Telephone Encounter - Galo Bernal APRN.CNP - 05/25/2024 1:12 PM EST Please inform patient that an x-ray is negative. Follow-up with PCP if symptoms are not improving. Galo Bernal APRN.CNP [facility]11-29-2024 History of Present illness Narrative* Mario Campos RT(Marcos) - 05/25/2024 12:00 PM EST Radiology Service Progress Note PATIENT NAME: Pat Median DATE OF SERVICE: May 25, 2024 TIME: 11:53 AM PATIENT IDENTITY VERIFICATION COMPLETED USING TWO (2) IDENTIFIERS: Name and Date of confirmedby patient verbally. FALL SCREENING: Has the patient had 2 falls in the last year or 1 fall with injury or currently using an Ambulatory Assistive Device (Walker, Cane, Wheelchair, Crutches, etc.)? No PATIENT GENDER DATA: Female. status: : No status: NO. PATIENT RELEVANT IMPLANT DATA REVIEWED: Not Applicable PATIENT PRESENTS WITH AN IMPLANTABLE OR ATTACHED NUTRITION THERAPIST: No RADIOLOGY DEPARTMENT: General X-ray: Exam(s) Completed: Upper Extremity X- Ray(s): Hand, right PERIPHERAL IV DATA: Not applicable SIGNED BY: RT Walter(R) May 25, 2024 11:53 AM documented in this encounterMarion Hospital11-29-2024 [facility]Pe[facility]11-27-2024 NotePe[facility]11-27-2024 History of Present illness Narrative* Galo Bernal APRN.CNP - 05/23/2024 7:30 AM EST Images from the original note were not included. Subjective HPI Nontoxic-appearing female presents urgent care chief complaint sore on palmar aspect of right hand.Duration of symptoms 2 weeks. Associated symptoms listed above. Was seen twice for this in the past. HSV swab negative. Placed on doxycycline. Symptoms did not improve. Did follow-up with PCP. Was placed on Keflex. States symptoms did improve on Keflex. Presents today for reevaluation. No new blisters redness or pain. No drainage. No fevers. Past medical history prescription medications allergiesreviewed. .Patient presents with: sore on right middle finger: X 2 weeks PAST MEDICAL HISTORY Diagnosis Date Abdominal pain, unspecified site Abnormal glandular Papanicolaou smear of cervix 04/08/2006 Abn. 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 No issues in [...] <AGE 14 1987 Tonsillectomy ALLERGIES Pamprin Multi-Symptom [Ddwnfmyowvdiu-Cxnuiort-Spudxfv], Buspar [Buspirone], Codeine, Lamotrigine, Nitrofurantoin Macrocrystal, and [...] hours. Wear patch for 12 hours and thenremove for 12 hours prior to placing new [...] Cancer Maternal Grandfather BLADDER Heart Maternal Grandfather NH & EMPHYSEMA Social History Tobacco Use Smoking [...] Wt 55.8 kg (123 lb 0.3 oz) 05/07/2009 SpO2 96% BMI 20.47 kg/m Review [...] noted to highlighted area. No remote redness. Noedema or erythema. No drainage. Neurovascular intact. Full [...] any evidence of cellulitis or deep space infection.However with pain with palpation over MCP joint will obtain x-ray of hand. Encouraged to follow-up with PCP 48 hours reevaluation. Red flags for prompt ER evaluation discussed. Be seen for any new worsening or symptoms lasting longer than anticipated. Patient verbalized understanding agrees with plan of care. Galo Bernal APRN.LUIS DANIEL documented in this encounterMarion [facility]11-19-2024 [facility] History of Present illness Narrative* Anny Hutchins APRN.LUIS DANIEL - 05/15/2024 1:02 PM EST CC: Patient presents with: Derm Problem HPI Pat Medina is a 44 year old female who presents today for above. Patient woke up on 05/10 withwhat appeared to be a spider bite on [...] Anxiety Congestive heart failure (HCC) during . 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 No issues in [...] <AGE 14 1985 Tonsillectomy ALLERGIES Pamprin Multi-Symptom [Sjzdpivhmgren-Ucltqceb-Aanwwww], Buspar [Buspirone], Codeine, Lamotrigine, Nitrofurantoin Macrocrystal, and [...] hours. Wear patch for 12 hours and thenremove for 12 hours prior to placing new [...] Cancer Maternal Grandfather BLADDER Heart Maternal Grandfather NH & EMPHYSEMA Social History Tobacco Use Smoking [...] small punctures made with a 23 gauge needle.Clear fluid expressed. Bactroban ointment applied and covered [...] Patient agreeable to treatment plan. Anny Hutchins APRN.LUIS DANIEL documented in this encounterMarion Hospital11-19-2024 Telephone encounter Note * Telephone Encounter - Darline Santamaria LPN - 05/15/2024 9:54 AM EST Spoke to pt. Appt scheduled with Anny Pham CNP for 1:00 pm today. Darline Santamaria LPN [facility]11-19-2024 Miscellaneous Notes* Telephone Encounter - Darline Santamaria LPN - 05/15/2024 9:54 AM EST Spoke to pt. Appt scheduled with Anny Pham CNP for 1:00 pm today. Darline Santamaria LPN * Telephone Encounter - Britt Murray LPN - 05/15/2024 9:42 AM EST Left message to call office. 05/15/2024 9:45 AM. Pt was seen in 05/11/24 for 2 small bite-looking oneil at base of middle finger. Shingles vs insect bite. Pt reports she now has a dime size blister at area, it is fluid filled & red, purplishin color. + painful. Pt denies red streaking or fever. Pt needs scheduled for appt. Britt Murray LPN documented in this encounterMarion Hospital11-19-2024 Telephone encounter Note * Telephone Encounter - Britt Murray LPN - 05/15/2024 9:42 AM EST Left message to call office. 05/15/2024 9:45 AM. Pt was seen in 05/11/24 for 2 small bite-looking oneil at base of middle finger. Shingles vs insect bite. Pt reports she now has a dime size blister at area, it is fluid filled & red, purplishin color. + painful. Pt denies red streaking or fever. Pt needs scheduled for appt. Britt Murray LPN [facility]11-[facility]11-15-[facility] History of Present illness Narrative* Karen Mckee APRN.DRIER TENDER NAPHTHALENE - 05/11/2024 4:25 PM EST SUBJECTIVE: Hepatitis B Vaccine(2 of 3 - [...] hours. Wear patch for 12 hours and thenremove for 12 hours prior to placing new [...] Anxiety Congestive heart failure (HCC) during . 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 No issues in [...] - CONSULT TO GENERAL SURGERY Karen Mckee APRN.DRIER TENDER NAPHTHALENE Medical Decision Making: Problems: Low: Acute, uncomplicated illness or injury Data: Unique test(s) ordered: 1 Risk: Low: Low risk from testing/treatment Medical Decision Making Level: 3 - Low documented in this encounterMarion Hospital11-15-2024 Note[facility]11-15-2024 History of Present illness Narrative* Yodit Saxena APRN.BLUEBERRY GROWER - 05/11/2024 8:54 AM EST This note was created using RuffWire. Subjective Pat Medina is a 44 year [...] history is provided by the patient. No watch and clock repair clerk was used. Trauma This is a new problem. The current episode started yesterday. The problem occurs constantly. The problem has been gradually worsening. Pertinent negatives include no abdominal pain, anorexia, arthralgias, change in bowel habit, chest pain, chills, congestion, coughing, diaphoresis, fatigue, fever, headaches, joint swelling, myalgias, nausea, neck pain, numbness, rash, sore throat, swollen glands,urinary symptoms, vertigo, visual change, vomiting or weakness. Nothing aggravates the symptoms. She has tried nothing for the symptoms. The treatment provided no relief. PAST MEDICAL HISTORY Diagnosis Date Abdominal pain, unspecified site Abnormal glandular Papanicolaou smear of cervix 04/08/2006 Abn. 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 No issues in [...] & curettage,TAB ESOPHAGOGASTRODUODENOSCOPY TRANSORAL DIAGNOSTIC 11/01/11 EGD [facility] inpt H-pylori negative LIG/TRNSXJ FLP TUBE ABDL/VAG APPR UNI/BI 04/09/2006 Tubal ligation MYRINGOTOMY ASPIR&/EUSTACHIAN TUBE NFLTJ ANES 1994 Myringotomy/tubes OOPHORECTOMY PARTIAL/TOTAL UNI/BI left TONSILLECTOMY PRIMARY/SECONDARY <AGE 12 1988 Tonsillectomy ALLERGIES Pamprin Multi-Symptom [Vfhvkglerbtfl-Dxwujpio-Xtrgzyv], Buspar [Buspirone], Codeine, Lamotrigine, Nitrofurantoin Macrocrystal, and [...] hours. Wear patch for 12 hours and thenremove for 12 hours prior to placing new [...] Cancer Maternal Grandfather BLADDER Heart Maternal Grandfather NH & EMPHYSEMA Social History Tobacco Use Smoking [...] in 3 to 5 days Yodit Saxena APRN.BLUEBERRY GROWER documented in this encounterMarion Hospital11-14-2024 History of Present illness Narrative* Mary Velazquez RT(R) - 05/10/2024 12:20 PM EST Radiology Service Progress Note PATIENT NAME: Pat Medina DATE OF SERVICE: May 10, 2024 TIME: 12:19 PM PATIENT IDENTITY VERIFICATION COMPLETED USING TWO (2) IDENTIFIERS: Name and Date of confirmedby patient verbally. FALL SCREENING: Has the patient had 2 falls in the last year or 1 fall with injury or currently using an Ambulatory Assistive Device (Walker, Cane, Wheelchair, Crutches, etc.)? No PATIENT GENDER DATA: Female. status: : No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 withyour home medications. What How Much When Instructions [...] comes from the structures that surround the shoulderjoint. These are the joint capsule, ligaments, tendons, muscles, and bursa. Pain can also come fromcartilage in the joint. Cartilage can become worn [...] may need to use special tools to lookinside the joint (arthroscopy). Shoulder pain can be treated with a sling or a device that keeps your shoulder from moving. You cantake an anti-inflammatory medicine such as ibuprofen to [...] the time advised by your healthcare provider. Ifyou aren t sure how long to wear [...] talk with your healthcare provider before using thesemedicines. Also talk with your provider if you [...] less able to do your daily activities [phone] [employer]. [address] [place] [address]. All rights reserved. This information is not intended as a substitute for professional medical care. Always follow yourhealthcare professional's instructions. Additional Information VACCINATE! IT SAVES LIVES! Members of the community who have not yet received the COVID-19 vaccine and would like to receive it can visit one of [facility] vaccine clinics. There are many vaccine clinic locations within the [facility]. For locations and available times, please visit www.gettheshot.coronavirus.[place].gov/. It is important to note that some COVID mobile vaccine clinics are held outdoors and may be canceled in rainy or stormy conditions. To learn more about pediatric vaccinations (ages 5-11), we invite you to visit the [facility] webpage. https://www.[facility].org/pages/[email or web address]-Rmxaz-Bwcvsklwepd-Oziguukoid-Mmidl-Xaq stions.htmlTo learn more about the COVID-19 vaccine, we invite you to visit the CDC website for a list of frequently asked questions. https://www.cdc.gov/coronavirus/2019-ncov/vaccines/faq.html [facility] Patient Portal Access Instructions: Stay connected with your healthcare team and access your personal medical information anytime with the [facility] Patient Portal. If you would like a full copy of your medical records please contact the [facility] Medical Records Department Tuesday through Tuesday between 8a.m. and 4:30p.m. Please follow the directions below to access the portal: 1.Access the email account you provided upon registration to the hospital.2.Look for an invitation email from [facility].3.Open the email and access the invitation link: Accept Invitation to [facility]4.Fill in the required moore to create your account. Sign into www.[employer] with your username and password that you [...] you will allow to register on the [facility] Patient Portal for access to your information. You can also access the [facility] Patient Portal on the [employer]. Simply click on Health Records under [employer] and then click on the [employer] logo. HOW TO SAFELY DISPOSE OF PRESCRIPTION MEDICATIONS Please use one of the following methods to safely dispose of your unused medications. 1.Use a drug disposal kit: the drug disposal pouch allows you to safely discard your old and unuseddrugs. Ask your nurse to give you one when you are discharged.2.Visit a local take-back location: Many local pharmacies and police departments have programs that collect old and unwanted prescriptiondrugs. Call your local pharmacy or go to http://[employer]/0S6Kp6r to find one close to you.3.Make use of household items: Use cat litter or old coffee grounds to dispose medications if other options arenot available. Mix your drugs with these household products, seal them in an airtight container andthrow it into the garbage. Call [facility]: [phone] to be sure your drugs can be [...] drowsiness, such as benzodiazepines, also known as benzos,including diazepam and alprazolam, muscle relaxants or sleep aids. Never sell or share prescriptionopioids. This is illegal. Store opioids in a [...] aware that I should contact my doctor. 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 Author Type: LICENSED NURSE Type: Progress Notes Filed: 02/17/2024 10:26 Note Text: Injection prepared per Dr. Valencia's order and handed directly to him. Injection site: right shoulder Merline Corcoran [facility]08-13-2024 History of Present illness Narrative* Merline Corcoran LPN - 02/07/2024 3:27 PM EDT Injection prepared per Dr. Valencia's order and handed directly to him. Injection site: right shoulder Merline Corcoran LPN * Louis Valencia MD - 02/07/2024 3:21 PM EDTAssociated Order(s): Large Joint Arthro/Inj: R shoulder joint [...] shoulder in May 2023 but was lost tofollow-up during her recovery. She states that she lost coverage and was unable to return for visits. She recalls that just a few days after surgery she jerked the arm up and had significant pain, not improved since that time. EXAM: I examined her right shoulder today. She has significant pain and guarding throughout the exam. Shecan only actively elevate about 90 degrees before [...] return to see me for discussion of theresults and possible treatment planning including revision surgery. [...] & Elbow Surgeon Department of Orthopaedic Surgery [facility] documented in this encounterMarion Hospital08-13-2024 NoteHNO ID: [id number] Author: LOUIS VALENCIA MD Service: ? Author [...] AND Elbow Surgeon Department of Orthopaedic Surgery [facility]08-05-2024 Telephone encounter Note* Telephone Encounter - Sam Khan APRN.BLUEBERRY GROWER - 01/30/2024 8:40 AM EDT [facility] website checked and validated. All prescriptions have been APPROPRIATELY filled. No suspiciousactivity was identified. 01/30/2024 by Sam Khan APRN.CNP [facility]08-[facility] Miscellaneous Notes* Telephone Encounter - Sam Khan APRN.CNP - 01/30/2024 8:40 AM EDT PDMP website checked and validated. All prescriptions have been APPROPRIATELY filled. No suspiciousactivity was identified. 01/30/2024 by Sam Khan APRN.CNP documented in this encounterMarion Hospital07-31-2024 History of Present illness Narrative* Sam Khan APRN.CNP - 01/25/2024 2:44 PM EDT SUBJECTIVE Pat Medina is a 44 year old female here today for a check up on her medical problems. Chief Complaint Patient presents with: Follow Up: 2 week follow up HPI Pat Medina is a 44 year old female. She is an established patient of Maile Norman MD. Heretoday for a 2 week follow up. Follow [...] hours. Wear patch for 12 hours and thenremove for 12 hours prior to placing new [...] time. Discussed possible side effects including constipation. Advisedto use caution when operating heavy machinery and [...] from today's visit and in agreement with treatmentplan. Questions answered. Agrees to call the office [...] as well as compliance with taking medications. Age- appropriate health preventative measures were discussed. Return in about 4 weeks (around 02/22/2024) for recheck on new medication.. Sam Khan APRN-LUIS DANIEL documented in this encounterMarion Hospital07-29-2024 Telephone encounter Note * Telephone Encounter - Sam Khan APRN.CNP - 01/23/2024 9:26 AM EDT PDMP website checked and validated. All prescriptions have been APPROPRIATELY filled. No suspiciousactivity was identified. 01/23/2024 by Sam Khan APRN.CNP [facility]07-[facility] Miscellaneous Notes* Telephone Encounter - Sam Khan APRN.LUIS DANIEL - 01/23/2024 9:26 AM EDT PDMP website checked and validated. All prescriptions have been APPROPRIATELY filled. No suspiciousactivity was identified. 01/23/2024 by Sma Khan APRN.LUIS DANIEL documented in this encounterMarion Hospital07-22-2024 Telephone encounter Note * Telephone Encounter - Sam Khan APRN.CNP - 01/16/2024 8:53 AM EDT [facility] All prescriptions have been APPROPRIATELY filled. No suspiciousactivity was identified. 01/16/2024 by Sam Khan APRN.CNP [facility] Miscellaneous Notes* Telephone Encounter - Sam Khan APRN.CNP - 01/16/2024 8:53 AM EDT [facility]. All prescriptions have been APPROPRIATELY filled. No suspiciousactivity was identified. 01/16/2024 by Sam Khan APRN.CNP documented in this encounterMarion Hospital07-17-2024 History of Present illness Narrative* Sam Khan APRN.CNP - 01/11/2024 1:42 PM EDT SUBJECTIVE Pat Medina is a 43 year old female here today for a check up on her medical problems. Chief Complaint Patient presents with: Medication Follow-up HPI Pat Medina is a 43 year old female. She is an established patient of Maile Norman MD. Heretoday for a follow up on her shoulder [...] hours. Wear patch for 12 hours and thenremove for 12 hours prior to placing new [...] time. Discussed possible side effects including constipation. Advisedto use caution when operating heavy machinery and [...] All prescriptions have been APPROPRIATELY filled. No suspiciousactivity was identified. 01/11/2024 by Sam Khan APRN.CNP [...] from today's visit and in agreement with treatmentplan. Questions answered. Agrees to call the office [...] as well as compliance with taking medications. Age- appropriate health preventative measures were discussed. Return in about 2 weeks (around 01/25/2024). Sam Khan APRN-LUIS DANIEL documented in this encounterMarion Hospital07-15-2024 Telephone encounter Note * Telephone Encounter - Sam Khan APRN.CNP - 01/09/2024 10:05 AM EDT OARRS reviewed and script is appropriate, non-opioids considered. Patient is aware of risks and benefits of opioid medications and their use, including but not limited to risk for addiction. Advised to take medication as prescribed and adhere to the dosing regimen and to use the least amount necessary for the shortest period of time. Discussed possible side effects including constipation. Advisedto use caution when operating heavy machinery and driving and to never share or sell medication. PDMP website checked and validated. All prescriptions have been APPROPRIATELY filled. No suspiciousactivity was identified. 01/09/2024 by Sam Khan APRN.CNP [facility] Miscellaneous Notes* Telephone Encounter - Sam Khan APRN.CNP - 01/09/2024 10:05 AM EDT OARRS reviewed and script is appropriate, non-opioids considered. Patient is aware of risks and benefits of opioid medications and their use, including but not limited to risk for addiction. Advised to take medication as prescribed and adhere to the dosing regimen and to use the least amount necessary for the shortest period of time. Discussed possible side effects including constipation. Advisedto use caution when operating heavy machinery and driving and to never share or sell medication. PDMP website checked and validated. All prescriptions have been APPROPRIATELY filled. No suspiciousactivity was identified. 01/09/2024 by Sam Khan APRN.CNP documented in this encounterMarion Hospital07-08-2024 Telephone encounter Note * Telephone Encounter - Sam Khan APRN.CNP - 01/02/2024 4:20 PM EDT PDMP website checked and validated. All prescriptions have been APPROPRIATELY filled. No suspiciousactivity was identified. 01/02/2024 by Sam hKan APRN.CNP [facility]-08-[facility] Miscellaneous Notes* Telephone Encounter - Sam Khan APRN.CNP - 01/02/2024 4:20 PM EDT PDMP website checked and validated. All prescriptions have been APPROPRIATELY filled. No suspiciousactivity was identified. 01/02/2024 by Sam Khan APRN.CNP documented in this encounterMarion Hospital07-02-2024 Telephone encounter Note * Telephone Encounter - Sam Khan APRN.CNP - 12/27/2023 8:45 AM EDT PDMP website checked and validated. All prescriptions have been APPROPRIATELY filled. No suspiciousactivity was identified. 12/27/2023 by Sam Khan APRN.CNP [facility]07-[facility] Miscellaneous Notes* Telephone Encounter - Sam Khan APRN.CNP - 12/27/2023 8:45 AM EDT [facility] website checked and validated. All prescriptions have been APPROPRIATELY filled. No suspiciousactivity was identified. 12/27/2023 by Sam Khan APRN.LUIS DANIEL documented in this encounterMarion Hospital06-25-2024 Note* Addendum Note - Sam Khan APRN.CNP - 12/20/2023 10:23 AM EDTAddended by: SAM KHAN on: 12/20/2023 10:23 AM Modules accepted: Orders [facility]06-25-20[facility] Miscellaneous Notes* Addendum Note - Sam Khan APRN.CNP - 12/20/2023 10:23 AM EDTAddended by: SAM KHAN on: 12/20/2023 10:23 AM Modules accepted: Orders documented in this encounterMarion Hospital06-25-2024 History of Present illness Narrative* Sam Khan APRN.CNP - 12/20/2023 7:54 AM EDT SUBJECTIVE Pat Medina is a 43 year [...] 8 hours. 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 Taking tylenol [...] from today's visit and in agreement with treatmentplan. Questions answered. Agrees to call the office [...] as well as compliance with taking medications. Age- appropriate health preventative measures were discussed. Return in about 3 weeks (around 01/10/2024) for recheck on new medication.. Sam Khan APRN-LUIS DANIEL documented in this encounterMarion Hospital06-19-2024 Telephone encounter Note * Telephone Encounter - Sam Khan APRN.CNP - 12/14/2023 9:07 AM EDT PDMP website checked and validated. All prescriptions have been APPROPRIATELY filled. No suspiciousactivity was identified. 12/14/2023 by Sam Khan APRN.CNP [facility] Miscellaneous Notes* Telephone Encounter - Sam Khan APRN.CNP - 12/14/2023 9:07 AM EDT [facility]. All prescriptions have been APPROPRIATELY filled. No suspiciousactivity was identified. 12/14/2023 by Sam Khan APRN.CNP * Telephone Encounter - Sharon Sutherland RN - 12/14/2023 8:57 AM EDT Prescription Refill Information The patient has been [...] 14, 2023 8:57 AM documented in this encounterMarion Hospital06-19-2024 Telephone encounter Note * Telephone Encounter - Sharon Sutherland RN - 12/14/2023 8:57 AM EDT Prescription Refill Information The patient has been [...] Sutherland RN December 14, 2023 8:57 AM [facility] Telephone encounter Note* Telephone Encounter - Sam Khan APRN.CNP - 12/07/2023 7:49 AM EDT [facility]. All prescriptions have been APPROPRIATELY filled. No suspiciousactivity was identified. 12/07/2023 by Sam Khan APRN.CNP [facility] Miscellaneous Notes* Telephone Encounter - Sam Khan APRN.CNP - 12/07/2023 7:49 AM EDT [facility]. All prescriptions have been APPROPRIATELY filled. No suspiciousactivity was identified. 12/07/2023 by Sam Khan APRN.CNP documented in this encounterMarion Hospital06-06-2024 Telephone encounter Note * Telephone Encounter - Maile Norman MD - 12/01/2023 8:38 AM EDT Noted weaning Percocet The following approved medication [...] 7 days. Authorizing Provider: MAILE NORMAN MD [facility] Miscellaneous Notes* Telephone Encounter - Maile Norman MD - 12/01/2023 8:38 AM EDT Noted weaning Percocet The following approved medication [...] 7 days. Authorizing Provider: MAILE NORMAN MD * Telephone Encounter - Sharon Sutherland RN - 12/01/2023 8:08 AM EDT Patient reports she is weaning off of percocet, decreases the Rx by 7 pills each week. Aware pcp and Sam are out today, and asking if [facility] will send the Rx for 21 pills. Patient ran out of medication yesterday. Pended. Reports Sam sends the Rx every Tue, but Sam is out this week. * Telephone Encounter - Sharmin Monge LPN - 11/30/2023 12:14 PM EDT Patient returned call, given provider message and voiced understanding. States that she also needs her percocet refilled. States that [facility] has been filling it one week at a time and she is out today. Asking if this can be filled. Please advise. * Telephone Encounter - Otilia Douglas RN - 11/29/2023 11:40 AM EDT Called and left a voicemail for the Patient to call back and ask for a nurse to receive the providers message. Otilia Douglas RN * Telephone Encounter - Maile Norman MD - 11/28/2023 8:15 PM EDT Recently saw Sam. Noted management of pain [...] 3 days. Authorizing Provider: MAILE NORMAN MD * Telephone Encounter - Sujatha Simpson LPN - 11/28/2023 4:10 PM EDT Pat is calling today with complaints of a panic attack that has been going on and off for about 3 days with chest discomfort. She is asking for a short supply of xanax to try and break the cycle. Please call patient once addressed. documented in this encounterMarion Hospital06-06-2024 Telephone encounter Note * Telephone Encounter - Sharon Sutherland RN - 12/01/2023 8:08 AM EDT Patient reports she is weaning off of percocet, decreases the Rx by 7 pills each week. Aware pcp and Sam are out today, and asking if [facility] will send the Rx for 21 pills. Patient ran out of medication yesterday. Pended. Reports Sam sends the Rx every Tue, but Sam is out this week. [facility] Telephone encounter Note* Telephone Encounter - Sharmin Monge LPN - 11/30/2023 12:14 PM EDT Patient returned call, given provider message and voiced understanding. States that she also needs her percocet refilled. States that Sam has been filling it one week at a time and she is out today. Asking if this can be filled. Please advise. [facility]06-[facility] Telephone encounter Note* Telephone Encounter - Otilia Douglas RN - 11/29/2023 11:40 AM EDT Called and left a voicemail for the Patient to call back and ask for a nurse to receive the providers message. Otilia Douglas RN [facility]06-03-[facility] Telephone encounter Note* Telephone Encounter - Maile Norman MD - 11/28/2023 8:15 PM EDT Recently saw Sam. Noted management of pain [...] 3 days. Authorizing Provider: MAILE NORMAN MD [facility]06-03-2024 Telephone encounter Note* Telephone Encounter - Sujatha Simpson LPN - 11/28/2023 4:10 PM EDT Pat is calling today with complaints of a panic attack that has been going on and off for about 3 days with chest discomfort. She is asking for a short supply of xanax to try and break the cycle. Please call patient once addressed. [facility]05-29-2024 Telephone encounter Note* Telephone Encounter - Sam Khan APRN.CNP - 11/23/2023 9:40 AM EDT She continues to reduce her dose. OARRS [...] time. Discussed possible side effects including constipation. Advisedto use caution when operating heavy machinery and driving and to never share or sell medication. PDMP website checked and validated. All prescriptions have been APPROPRIATELY filled. No suspiciousactivity was identified. 11/23/2023 by Sam Khan APRN.CNP [facility]05-29-2024 Miscellaneous Notes* Telephone Encounter - Sam Khan APRN.CNP - 11/23/2023 9:40 AM EDT She continues to reduce her dose. OARRS [...] time. Discussed possible side effects including constipation. Advisedto use caution when operating heavy machinery and driving and to never share or sell medication. [facility]. All prescriptions have been APPROPRIATELY filled. No suspiciousactivity was identified. 11/23/2023 by Sam Khan APRN.CNP documented in this encounterMarion Hospital05-22-2024 Telephone encounter Note * Telephone Encounter - Sam Khan APRN.CNP - 11/16/2023 8:51 AM EDT [facility] checked and [facility]. All prescriptions have been APPROPRIATELY filled. No suspiciousactivity was identified. 11/16/2023 by Sam Khan APRN.CNP [facility]05-22-2024 Miscellaneous Notes* Telephone Encounter - Sam Khan APRN.CNP - 11/16/2023 8:51 AM EDT [facility] website checked and validated. All prescriptions have been APPROPRIATELY filled. No suspiciousactivity was identified. 11/16/2023 by Sam Khan APRN.CNP documented in this encounterMarion Hospital05-17-2024 History of Present illness Narrative* Sam Khan APRN.CNP - 11/11/2023 10:15 AM EDT SUBJECTIVE Pat Medina is a 43 year old female here today for a check up on her medical problems. Chief Complaint Patient presents with: Medication Follow-up HPI Pat Medina is a 43 year old female. She is an established patient of Maile Norman MD. She presents today for a routine follow up on pain. She is s/p right roator cuff repair with Dr. Valencia.Pt is once per week now. Still some [...] work on decreasing her overall dose and useof the Percocet. Her medications were reviewed today [...] time. Discussed possible side effects including constipation. Advisedto use caution when operating heavy machinery and [...] from today's visit and in agreement with treatmentplan. Questions answered. Agrees to call the office [...] as well as compliance with taking medications. Age- appropriate health preventative measures were discussed. Return in about 4 weeks (around 12/09/2023) for Follow up on chronic conditions and medications.. Sam Khan APRN-LUIS DANIEL documented in this encounterMarion Hospital05-15-[facility]24 Telephone encounter Note * Telephone Encounter - Sam Khan APRN.CNP - 11/09/2023 1:00 PM EDT She continues to lower her dose/usage. OARRS [...] time. Discussed possible side effects including constipation. Advisedto use caution when operating heavy machinery and driving and to never share or sell medication. [facility]05-15-2024 Miscellaneous Notes* Telephone Encounter - Sam Khan APRN.CNP - 11/09/2023 1:00 PM EDT She continues to lower her dose/usage. OARRS [...] time. Discussed possible side effects including constipation. Advisedto use caution when operating heavy machinery and driving and to never share or sell medication. documented in this encounterMarion Hospital05-10-2024 Telephone encounter Note * Telephone Encounter - Sam Khan APRN.CNP - 11/04/2023 7:41 AM EDT OARRS reviewed and script is appropriate, non-opioids considered. Patient is aware of risks and benefits of opioid medications and their use, including but not limited to risk for addiction. Advised to take medication as prescribed and adhere to the dosing regimen and to use the least amount necessary for the shortest period of time. Discussed possible side effects including constipation. Advisedto use caution when operating heavy machinery and driving and to never share or sell medication. Dose continues to titrate down overall. PDMP website checked and validated. All prescriptions have been APPROPRIATELY filled. No suspiciousactivity was identified. 11/04/2023 by Sam Khan APRN.CNP [facility]05-10-2024 Miscellaneous Notes* Telephone Encounter - Sam Khan APRN.CNP - 11/04/2023 7:41 AM EDT OARRS reviewed and script is appropriate, non-opioids considered. Patient is aware of risks and benefits of opioid medications and their use, including but not limited to risk for addiction. Advised to take medication as prescribed and adhere to the dosing regimen and to use the least amount necessary for the shortest period of time. Discussed possible side effects including constipation. Advisedto use caution when operating heavy machinery and driving and to never share or sell medication. Dose continues to titrate down overall. PDMP website checked and validated. All prescriptions have been APPROPRIATELY filled. No suspiciousactivity was identified. 11/04/2023 by Sam Khan APRN.CNP documented in this encounterMarion Hospital04-30-2024 History of Present illness Narrative* Yodit Baker, PT - 10/25/2023 11:33 AM EDT Program_ID:[id number] Access Code: [email or web address] URL: [email or web address] Date: 10-25-2023 Prepared By: Yodit Baker Program [...] weekly - 5 sets - 1 reps * Yodit Baker, PT - 10/25/2023 11:13 AM EDT Images from the original note [...] 10/17/23 Goals updated on 10/25/2023 through 11/29/23 [place] in home exercise program. -- MET Patient [...] Patient to be seen for Therapeutic exercise (85890), Neuromuscular re-education (10272), Manual therapy (48842), Therapeutic activities (06599), Self-retirement management (73919), Gait Training (92102) PLAN FOR NEXT VISIT: continue progressing toward [...] 2x each AROM taken. 2: *Access Code: [email or web address] URL: [email or web address] Date: 10/25/2023 Prepared by: Yodit Guillen Exercises - Seated Shoulder Flexion AAROM with Padmini Behind - 2 x daily - 7 x weekly - 4 sets - 10 reps - 1 hold - Supine Shoulder Press AAROM in Abduction with Dowel - 2 x daily -7 x weekly - 2 sets - 10 reps - Supine Shoulder Flexion AAROM with Dowel - 2 x daily - 7 x weekly -2 sets - 10 reps - Supine Shoulder External Rotation AAROM with Dowel (Mirrored) - 2 x daily - 7 x weekly - 2 sets - 10 reps - Standing Isometric Shoulder External Rotation with Doorway - 1 x daily -7 x weekly - 5 sets - 1 [...] and function . Patient education as noted. Self-Jail Management: Skilled Intervention: Skilled judgment in the [...] 1155 Yodit Baker PT documented in this encounterMarion Hospital04-26-2024 Telephone encounter Note * Telephone Encounter - Sam Khan APRN.CNP - 10/21/2023 7:36 AM EDT OARRS reviewed and script is appropriate, non-opioids considered. Patient is aware of risks and benefits of opioid medications and their use, including but not limited to risk for addiction. Advised to take medication as prescribed and adhere to the dosing regimen and to use the least amount necessary for the shortest period of time. Discussed possible side effects including constipation. Advisedto use caution when operating heavy machinery and driving and to never share or sell medication. PDMP website checked and validated. All prescriptions have been APPROPRIATELY filled. No suspiciousactivity was identified. 10/21/2023 by Sam Khan APRN.CNP [facility]04-26-2024 Miscellaneous Notes* Telephone Encounter - Sam Khan APRN.CNP - 10/21/2023 7:36 AM EDT OARRS reviewed and script is appropriate, non-opioids considered. Patient is aware of risks and benefits of opioid medications and their use, including but not limited to risk for addiction. Advised to take medication as prescribed and adhere to the dosing regimen and to use the least amount necessary for the shortest period of time. Discussed possible side effects including constipation. Advisedto use caution when operating heavy machinery and driving and to never share or sell medication. PDMP website checked and validated. All prescriptions have been APPROPRIATELY filled. No suspiciousactivity was identified. 10/21/2023 by Sam Khan APRN.CNP documented in this encounterMarion Hospital04-19-2024 History of Present illness Narrative* Sam Khan APRN.CNP - 10/14/2023 11:38 AM EDT SUBJECTIVE Pat Medina is a 43 year [...] concerned about re-tearing the shoulder. She was seenwith ortho surgery, thinks that her shoulder was [...] unexpected travel plans for care of her sdvvna-er-mdr and will need to refill her percocet [...] 1 tab po BID for 2 days then1/2 tab po BID for 2 days then [...] no signs misuse or abuse, planning to workon reducing her overall dose. - OXYCODONE-ACETAMINOPHEN 5 [...] from today's visit and in agreement with treatmentplan. Questions answered. Agrees to call the office [...] as well as compliance with taking medications. Age- appropriate health preventative measures were discussed. Return in 4 weeks (on 11/11/2023), or if symptoms worsen or fail to improve, for Follow up on chronic conditions and medications.. Sam Khan APRN-LUIS DANIEL documented in this encounterMarion Hospital04-16-2024 History of Present illness Narrative* Louis Valencia MD - 10/11/2023 11:03 AM EDT Images from the original note were not included. PAIN EVALUATION 10/10/2023 1237 10/11/2023 1015 Pain Level: 7 6 Pain Location: -- Shoulder-Right Description: Aching;Burning;Itching;Numbness;Stabbing;Throbbing Burning;Aching;Sharp Frequency: -- Continuous Intervention/Comfort measure: Medication;Reposition;Relaxation;Cold;Emotional Support/Reassurance;Pillow support;Positioning;Splinting -- Pat Medina presents today [...] & Elbow Surgeon Department of Orthopaedic Surgery [facility] Medical Decision Making: Medical Decision Making Level: 1 - N/A documented in this encounterMarion Hospital04-15-2024 History of Present illness Narrative* Claire Harrington, CHILDREN'S ENTERTAINER - 10/10/2023 11:27 AM EDT Program_ID:[id number] Access Code: [email or web address] URL: [email or web address] Date: 10-10-2023 Prepared By: Yodit Baker Program [...] weekly - 2 sets - 10 reps * Yodit Baker, PT - 10/10/2023 11:12 AM EDT Episode Visit Count: 5 Therapist That Will [...] : 1112 Session Stop Time : 1145 Claire HarringtonUMA PT documented in this encounterMarion Hospital04-08-2024 Miscellaneous Notes* Telephone Encounter - Amber Minaya LPN - 10/03/2023 4:16 PM EDT Spoke with pt and information listed below given. Pt verbalizes understanding. Amber Minaya LPN * Telephone Encounter - Maile Norman MD - 10/03/2023 9:52 AM EDT Reviewed progress note from recent OV with Sam. Has follow up with PT and ortho. Also has follow up this month with Sam. Okay 1 week RX as ordered before 09/26 to [facility] 10/03 The following approved medication requests have been transmitted electronically. Requested Prescriptions Signed Prescriptions Disp Refills oxyCODONE-acetaminophen (PERCOCET) 5-325 mg tablet 50 tablet 0 Sig: Take 1-2 tablets by mouth every 6 hours as needed for pain for up to 7 days. Do not start before October 04, 2023. Authorizing Provider: MAILE NORMAN MD * Telephone Encounter - Tre Perez MA - 10/01/2023 9:42 AM EDT Requested Prescriptions Pending Prescriptions Disp Refills oxyCODONE-acetaminophen (PERCOCET) 5-325 mg tablet 50 tablet 0 Sig: Take 1-2 tablets by mouth every 6 hours as needed for pain for up to 7 days. Date of last office visit in primary care: 09/27/2023 Date of next office visit in primary care: 10/14/2023 Please advise. Thank you. Tre Perez MA. documented in this encounterMarion Hospital04-08-2024 History of Present illness Narrative* MyaYodit Rod, PT - 10/03/2023 11:04 AM EDT Episode Visit Count: 4 Therapist That Will [...] pain was too much to handle. Pt statesshe may have re-injured her shoulder, has a follow up with Dr. Valencia [facility]. Pt wearing abduction sling today, trying [...] : 1102 Session Stop Time : 1132 Clairekymberly Harrington, UMA Baker PT documented in this encounterMarion Hospital04-02-2024 History of Present illness Narrative* Sam Khan APRN.BLUEBERRY GROWER - 09/27/2023 1:19 PM EDT Images from the original note were not included. SUBJECTIVE Pat Medina is a 43 year old female here today for an ER follow up. Chief Complaint Patient presents with: ER F/U: Shoulder HPI Pat Medina is a 43 year old female. She is an established patient of Maile Norman MD. Heretoday for ER follow up, seen in the ER at [facility] yesterday 09/25. A few days prior [...] not know what to do. Using her percocetmore often and frustrated because she had significantly [...] 1 tab po BID for 2 days then1/2 tab po BID for 2 days then [...] from today's visit and in agreement with treatmentplan. Questions answered. Agrees to call the office [...] as well as compliance with taking medications. Age- appropriate health preventative measures were discussed. Return if symptoms worsen or fail to improve, for Keep next scheduled appointment.. Sam Khan APRN-LUIS DANIEL documented in this encounterMarion Hospital04-02-2024 Hospital Discharge instructions Patient Education 09/26/2023 22:06:58 [...] the time advised by your healthcare provider. Ifyou aren t sure how long to wear [...] talk with your healthcare provider before using thesemedicines. Also talk with your provider if you [...] broken bones, breaks, or fractures. Sometimes fractures dont show up on the first X-ray. Bruises [...] shoulder or upper arm Fever or chills [phone] [employer]. [address] [place] [address]. All rights reserved. This information is not intended as a substitute for professional medical care. Always follow yourhealthcare professional's instructions. Follow Up Care 09/26/2023 19:29:15 With:Follow-up with your orthopedic surgeon as soon as possible. Address:Unknown When:2-4 days With:MAILE NORMAN [address] [place] [address] [facility] (1) When:2-4 days Comments:Return to ED if symptoms worsen [facility] Discharge summary Discharge Instructions Thank you for allowing [facility] to assist you with your healthcare needs. The following is importantdischarge information regarding your hospital visit. Diagnosis from [...] to ED if symptoms worsen Where: [address] [place] [address] [facility] (1) Allergies LaMICtal Pamprin Maximum Pain codeine Medications Please ask your primary doctor or pharmacist before taking any other medication not listed, including over the counter drugs, herbal medications, vitamins and or supplements as they may interact withyour home medications. What How Much When Why [...] the time advised by your healthcare provider. Ifyou aren t sure how long to wear [...] talk with your healthcare provider before using thesemedicines. Also talk with your provider if you [...] broken bones, breaks, or fractures. Sometimes fractures dont show up on the first X-ray. Bruises [...] shoulder or upper arm Fever or chills [phone] [employer]. [address] [place] [address], [place] [address]. All rights reserved. This information is not intended as a substitute for professional medical care. Always follow yourhealthcare professional's instructions. Additional Information VACCINATE! IT SAVES LIVES! Members of the community who have not yet received the COVID-19 vaccine and would like to receive it can visit one of [facility] vaccine clinics. There are many vaccine clinic locations within the [facility]. For locations and available times, please visit www.gettheshot.coronavirus.[place].gov/. It is important to note that some COVID mobile vaccine clinics are held outdoors and may be canceled in rainy or stormy conditions. To learn more about pediatric vaccinations (ages 5-11), we invite you to visit the [facility] webpage. [email or web address]://www.[email or web address]/[email or web address] [email or web address].htmlTo learn more about the COVID-19 vaccine, we invite you to visit the CDC website for a list of frequently asked questions. https://www.cdc.gov/coronavirus/2019-ncov/vaccines/faq.html [facility] Patient Portal Access Instructions: Stay connected with your healthcare team and access your personal medical information anytime with the [facility] Patient Portal. If you would like a full copy of your medical records please contact the [facility] Medical Records Department Tuesday through Tuesday between 8a.m. and 4:30p.m. Please follow the directions below to access the portal: 1.Access the email account you provided upon registration to the hospital.2.Look for an invitation email from [facility].3.Open the email and access the invitation link: Accept Invitation to [facility]4.Fill in the required moore to create your account. Sign into www.Mobile Tracing Services with your username and password that you [...] you will allow to register on the [facility] Patient Portal for access to your information. You can also access the [facility] Patient Portal on the [employer]. Simply click on Health Records under [place] and then click on the [facility] logo. HOW TO SAFELY DISPOSE OF PRESCRIPTION MEDICATIONS Please use one of the following methods to safely dispose of your unused medications. 1.Use a drug disposal kit: the drug disposal pouch allows you to safely discard your old and unuseddrugs. Ask your nurse to give you one when you are discharged.2.Visit a local take-back location: Many local pharmacies and police departments have programs that collect old and unwanted prescriptiondrugs. Call your local pharmacy or go to http://[employer]/7U8Av2s to find one close to you.3.Make use of household items: Use cat litter or old coffee grounds to dispose medications if other options arenot available. Mix your drugs with these household products, seal them in an airtight container andthrow it into the garbage. Call [facility]: [phone] to be sure your drugs can be [...] drowsiness, such as benzodiazepines, also known as benzos,including diazepam and alprazolam, muscle relaxants or sleep aids. Never sell or share prescriptionopioids. This is illegal. Store opioids in a [...] aware that I should contact my doctor. 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: Date/Time: Relationship to Patient: Witness Name/Signature: Date/Time: [facility]04-01-2024 Note ORIGINAL EXAMINATION: TWO XRAY VIEWS OF [...] Sign Date: 09/26/2023 9:41:45 PM Ordering Provider: [facility]03-25-2024 History of Present illness Narrative* Yodit Baker, PT - 09/19/2023 11:05 AM EDT Episode Visit Count: 2 Therapist That Will [...] 1100 Session Stop Time : 1141 UMA Mlahotra PT documented in this encounterMarion Hospital03-21-2024 Miscellaneous Notes* Telephone Encounter - Otilia Douglas RN - 09/15/2023 4:05 PM EDT Sent to provider with medication request. documented in this encounterMarion Hospital03-21-2024 Miscellaneous Notes* Telephone Encounter - Otilia Douglas RN - 09/15/2023 4:00 PM EDT Per Pt iFrat Warshart message from 09/14/23,I had my post off appointment yesterday. I finally got to talkto the doctor in person. He told me my shoulder was way worse than what he initially had thought. He ended up doing two different spots on my rotator cuff. My tendon and my bicep. So I kind of feel like a rockstar with my recovery! I originally didn't know he did the rotator cuff so that might expla in why my pain is so severe.. but anyways with that being said I will need a refill on my Percocetsbut I think I want to try on [...] you. Otilia Douglas RN. documented in this encounterMarion Hospital03-19-2024 History of Present illness Narrative* Louis Valencia MD - 09/13/2023 1:39 PM EDT PAIN EVALUATION 09/13/2023 1330 Pain Level: 7 [...] & Elbow Surgeon Department of Orthopaedic Surgery [facility] Medical Decision Making: Medical Decision Making Level: 1 - N/A documented in this encounterMarion Hospital03-15-2024 Instructions* Patient Instructions* Sam Khan APRN.CNP - 09/09/2023 3:19 PM EDT Goal is for the tylenol use to be 4000 mg or less in 24 hours. Keep icing the shoulder. Okay to keep taking the ibuprofen. We will refill the percocet. documented in this encounterMarion Hospital03-15-2024 History of Present illness Narrative* Sam Khan APRN.CNP - 09/09/2023 3:10 PM EDT SUBJECTIVE Pat Medina is a 43 year [...] All prescriptions have been APPROPRIATELY filled. No suspiciousactivity was identified. 09/09/2023 by Sam Khan APRN.CNP [...] from today's visit and in agreement with treatmentplan. Questions answered. Agrees to call the office [...] as well as compliance with taking medications. Age- appropriate health preventative measures were discussed.. Return in about 5 weeks (around 10/14/2023) for recheck on pain. Sam Khan APRN-LUIS DANIEL documented in this encounterMarion Hospital03-11-2024 History of Present illness Narrative* Yodit Baker, PT - 09/05/2023 11:19 AM EDT Program_ID:[id number] Access Code: [email or web address] URL: [email or web address] Date: 09-05-2023 Prepared By: Yodit Baker Program [...] weekly - 4 sets - 10 reps * Yodit Baker, PT - 09/05/2023 11:04 AM EDT Episode Visit Count: 1 Therapist That Will [...] were reviewed and identified as a rehabilitation c oncern. Prognosis for therapy is Fair due to: chronic nature of impairments, clinical presentation,limited tolerance to activity, poor understanding of deficits, coping skills . She will benefit from skilled therapy services to meet the goals established for this plan of care as noted below. Goals for Episode of Care: created on 09/05/23 through 10/17/23 Sauk in home exercise program. Patient will decrease [...] Planned: 12 Planned Treatment Interventions: Therapeutic exercise (46116), Neuromuscular re- education (69113), Manual therapy (34351), Therapeutic activities (37691), Self- retirement management (00686), Gait Training (40275) PLAN FOR NEXT VISIT: continue phase I [...] about 60 min before PT eval. Pt. willf/u with surgeon 09/13/23. 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 Patient education as noted. Self-Jail Management: 1: discussed avoiding guarding with codman [...] 1140 Yodit Baker PT documented in this [facility]03-08-2024 Miscellaneous Notes* Telephone Encounter - Alis Hanna - 09/02/2023 2:47 PM EST Pt will run out of pain medication on Tuesday. I have put in a refill to be filled not until Tuesday. Last refill 09-01-23 documented in this [facility]03-07-2024 Miscellaneous Notes* Telephone Encounter - Alis Hanna - 09/01/2023 8:14 AM EST Patient called requesting refill of post-op pain medication. Patients last known Refill Date: 08-29-23, date of surgery Patient Phone numbers: [phone] (home) Request is for script(s) to be escript to pharmacy. Alis Kwon Dallas Daniel documented in this encounterMarion Hospital02-27-2024 Miscellaneous Notes* Telephone Encounter - Sam Khan APRN.CNP - 08/23/2023 10:43 AM EST Noted, I will watch for her my chart message but certainly we will help to control pain and wean pain medication * Telephone Encounter - Shanon Lowe RN - 08/23/2023 8:18 AM EST Patient has upcoming shoulder surgery next Tuesday [...] procedure. Shanon Lowe RN documented in this encounterMarion Hospital02-22-2024 History of Present illness Narrative* Radha Neri APRN.LUIS DANIEL - 08/18/2023 12:08 PM ESTSummary: anesthesia Patient with h/o RSV 08/01/2023 and influenza B 08/11/2023. Treated with 5 days of prednisone. CXR 08/11/2023-WNL. Using albuterol 3 times daily. METS 5.50. Patient states she is feeling much better. Lungs CTA on exam. Reviewed with Dr. Jorge in anesthesia. Per Dr. Jorge, OK to proceed withprocedure as planned. Will evaluate patient DOS. Patient instructed in PAT to call surgeon's office if symptoms worsen or if she develops fever. documented in this encounterMarion Hospital02-22-2024 Instructions* Patient Instructions* Radha Neri APRN.CNP - 08/18/2023 9:24 AM EST PATIENT PREOPERATIVE INSTRUCTIONS Louis Valencia,* has scheduled you for your procedure at this surgery center: [facility]. [address] [place] [address], [place] [address] Please read below carefully for your personalized [...] a sip of water: BP, Heart, thyroid, psych,seizure, and pain medications excluding NSAIDS. Use inhalers [...] surgery. - YOU MUST HAVE A RESPONSIBLE CLEANER FURNITURE TAKE YOU HOME. A PRODUCT SAFETY TEST ENGINEER, CAB OR UBER CLEANER FURNITURE CANNOT BE MADEA RESPONSIBLE CLEANER FURNITURE. - We also require that a responsible person stays with you overnight to take care of you. - You cannot stay in a hotel alone after outpatient surgery. You will not be permitted to have yoursurgery, if you do not have someone to take care of you. - If you have a stimulator, implant or pump that requires a remote please bring the remote with youday of surgery If you develop symptoms such [...] but if you wish to bring undergarments forafter surgery you may. -If you do not have a copy of advance directives on file with us, please bring a copy with you on the day of surgery. If you already have an Advance Directive, please fax a copy to [phone] or email to for it to be added to your chart. If you do not have an Advance Directive, you can find the appropriate form and more information at [email or web address]. We recommend that youcomplete the Advance Directive form found on the [...] Radha Neri APRN.CNP 08/18/23 documented in this encounterMarion Hospital02-22-2024 History and physical note * Radha Neri APRN.CNP - 08/18/2023 9:00 AM EST HISTORY AND PHYSICAL EXAMINATION SERVICE DATE: 08/17/2023 SERVICE TIME: 12:08 PM PRIMARY CARE PHYSICIAN: Maile Norman MD Implantable Devices: None Patient denies blood thinners Assessment/Plan Bicipital tendinitis of right shoulder [M75.21] PLAN Planned Procedure: Procedure(s) with comments: ARTHROSCOPY SHOULDER BICEPS TENODESIS (Right) - REG - INTERSCALENE BLOCK The Following Tests/Procedures Have Been Initiated: No labs ordered per surgeon in [facility] I spent a total of 40 minutes on the date of the service which included preparing to see the patient, qqha-hz-nuso patient care, completing clinical documentation, obtaining and/or reviewing separately obtained history, performing a medically appropriate examination, counseling and educating the pat ient/family/caregiver, and communicating with other HCPs (not separately [...] Negative for: dysuria, hematuria and renal failure. MACHINE BUFFER: Negative for: vaginal bleeding. 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 No issues in [...] & curettage,TAB ESOPHAGOGASTRODUODENOSCOPY TRANSORAL DIAGNOSTIC 11/01/11 EGD [facility] inpt H-pylori negative LIG/TRNSXJ FLP TUBE ABDL/VAG APPR UNI/BI 04/09/2006 Tubal ligation MYRINGOTOMY ASPIR&/EUSTACHIAN TUBE NFLTJ ANES 1994 Myringotomy/tubes OOPHORECTOMY PARTIAL/TOTAL UNI/BI left TONSILLECTOMY PRIMARY/SECONDARY <AGE 12 1987 Tonsillectomy FAMILY HISTORY Problem Relation Age of Onset Psychiatry Mother DEPRESSION Hypertension Father Cervical Cancer Maternal Grandmother Hypertension Maternal Grandmother Cancer Maternal Grandfather BLADDER Heart Maternal Grandfather NH & EMPHYSEMA Social History Tobacco Use Smoking [...] (1.65m) Wt 122 lb (55.3kg) SpO2 98% [facility]07/07/2008 BMI 20.30 kg/(m^2). Diagnostic tests reviewed for [...] 372 QTC Calculation (Bazett) 561 Calculated P [place] 60 Calculated R [place] 81 Calculated T [place] 53 Impression SINUS TACHYCARDIA POSSIBLE LEFT ATRIAL ENLARGEMENT NONSPECIFIC ST AND T WAVE ABNORMALITY ABNORMAL ECG No results found for this or any previous visit (from the past 86817 hour(s)). Instructions Given to Patient: Instructions located in the after visit summary. Patient given verbal and written preop instructions and voices comprehension and compliance. SIGNATURE: Radha Neri APRN.CNP PATIENT NAME: Pat Medina DATE: August 17, 2023 TIME: 8:56 AM PAGER/CONTACT #: documented in this encounterMarion Hospital02-16-2024 Miscellaneous Notes* Telephone Encounter - Amber Minaya LPN - 08/12/2023 11:54 AM EST Spoke with pt and information listed below given. Pt verbalizes understanding. Amber Minaya LPN * Telephone Encounter - Jodi Brasher MA - 08/12/2023 7:54 AM EST Left VM instructing patient to return call to receive results. Jodi Brasher MA * Telephone Encounter - Louis De Paz APRN.CNP - 08/11/2023 7:20 PM EST Please notify positive for flu B Typically course is 5-7 days Push fluids Continue with plan as discussed during visit documented in this encounterMarion Hospital02-15-2024 Miscellaneous Notes* Telephone Encounter - Tori Jc - 08/11/2023 9:02 AM EST August 11, 2023 9:02 am Called pt [...] treatment plan. TIKA Degroot documented in this encounterMarion Hospital02-15-2024 Instructions* Patient Instructions* Tori Jc - 08/11/2023 8:59 AM EST [...] not breath through your nose.) If you heara hornlike sound, you are breathing too quickly [...] you are using the spacer intermittently, you mayonly need to clean it once a week.) [...] how long it will last by dividing thetotal number of puffs in the MDI by the total puffs you use every day. (For example, your MDI has 200 puffs and you use a total of 4 puffs per day. Divide 200 by 4 and your MDI will last 50 days.) Ifyou use an inhaler only when you need to, you must keep track of how many times you spray the inhaler. If you prefer, you can obtain a device that counts down the number of puffs each time you press the inhaler. Ask your health family day care worker for more information on these devices. documented in this encounterMarion Hospital02-15-2024 History of Present illness Narrative* Tori Jc - 08/11/2023 8:23 AM EST Subjective Cough Associated symptoms include ear pain, [...] <AGE 14 1986 Tonsillectomy ALLERGIES Pamprin Multi-Symptom [Lkzkepxcitjmj-Tpxecqxk-Yzwmhyd], Buspar [Buspirone], Codeine, Lamotrigine, Nitrofurantoin Macrocrystal, and [...] Cancer Maternal Grandfather BLADDER Heart Maternal Grandfather NH & EMPHYSEMA Social History Tobacco Use Smoking [...] - Prednisone Taper TIKA Degroot TEACHING PROVIDER (Physician/PA/OUTREACH NURSE) NOTE OF PERSONAL INVOLVEMENT IN CARE: I have personally seen and examined the patient and performed the medical decision-making components. I have reviewed the Advanced Practice Registered Nurse (OUTREACH NURSE) Student's documentation and verified the findings in the note as written. Any additions or changes are noted in bold/italics. Signature: Pennie Clemente Date: 08/11/2023 Time: 9:18 AM documented in this encounterMarion Hospital02-13-2024 History of Present illness Narrative* Louis Valencia MD - 08/09/2023 1:03 PM EST PAIN EVALUATION 08/09/2023 1252 Pain Level: 5 Pain Location: Shoulder-Right Description: Dull;Aching;Sharp Duration Units: Years Frequency: Intermittent Intervention/Comfort measure: Medication;Reposition;Relaxation Encounter Diagnosis ICD-10-CM 1. Biceps tendinitis of right upper extremity M75.21 Pat Medina presents today for evaluation of her right shoulder. She has been referred by my partner Dr. Rois for treatment of pain following an injury sustained in September 2022 when she reached out with the right arm to catch something heavy at work and had sudden onset of pain in the anteriorand lateral shoulder. This has not resolved despite [...] negative Drop arm test: negative Biceps/joss Signs [place]'s test: positive Clicking/popping: positive Speed's test: positive [...] office today, and I am in agreement withthe radiologist's interpretation with the following modifications: None [...] structures at the bicipital groove. Based on myevaluation today, I do not feel that nonsurgical interventions including physical therapy, activitymodification, and medical management are likely to provide this patient with an acceptable level ofimprovement in functional use of the arm, nor [...] & Elbow Surgeon Department of Orthopaedic Surgery [facility] documented in this encounterMarion Hospital02-09-2024 History of Present illness Narrative* Sam Khan APRN.BLUEBERRY GROWER - 08/05/2023 2:09 PM EST SUBJECTIVE Pat Medina is a 43 year [...] time. Discussed possible side effects including constipation. Advisedto use caution when operating heavy machinery and driving and to never share or sell medication. PDMP website checked and validated. All prescriptions have been APPROPRIATELY filled. No suspiciousactivity was identified. 08/05/2023 by Sam Khan APRN.LUIS DANIEL Portions of this [...] from today's visit and in agreement with treatmentplan. Questions answered. Agrees to call the office [...] as well as compliance with taking medications. Age- appropriate health preventative measures were discussed.. Return in about 3 months (around 11/03/2023) for Follow up on chronic conditions and medications.. Sam Khan APRN-BLUEBERRY GROWER documented in this encounterMarion Hospital02-05-2024 Miscellaneous Notes* Telephone Encounter - Naty Isabel LPN - 08/01/2023 4:04 PM EST Patient returned call and went over notes from Dr Norman with understanding. Patient said she hadto reschedule her appt due to being ill and moved to 08/09/[address] Valencia. Scheduled appt with [facility] for tomorrow morning at 740 am. * Telephone Encounter - Amber Minaya LPN - 08/01/2023 3:28 PM EST Left a message for pt to call the office and ask to speak to a nurse. Amber Minaya LPN * Telephone Encounter - Maile Norman MD - 07/30/2023 11:16 PM EST NOted Patient missed her appointment with Dr. Valencia. Rescheduled for 08/09. Needs follow up with me or LALA scheduled--last seen 05/31 and no follow up scheduled yet. Needs seenat least every 3 months if not tapering off pain med. The following approved medication requests have been transmitted electronically. Requested Prescriptions Signed Prescriptions Disp Refills oxyCODONE-acetaminophen (PERCOCET) 5-325 mg tablet 42 tablet 0 Sig: Take 1 tablet by mouth every 8 hours as needed for pain for up to 14 days. Do not start beforeFebruary 2023. Authorizing Provider: MAILE NORMAN MD * Telephone Encounter - Pat Gotti - 07/29/2023 10:39 AM EST Pharmacy verified in [facility] Patient has been identified by [...] Please advise. Pat Rowell documented in this encounterMarion Hospital02-05-2024 History of Present illness Narrative* Chris Geronimo PA - 08/01/2023 8:35 AM EST This note was created using Lendineroter. Subjective Pat Medina is a 43 year [...] is a smoker. No history of COPD orasthma. No vomiting or diarrhea. Has been taking vumu-mjh-njbxqwn medication with minimal improvement. No other complaint. [...] & curettage,TAB ESOPHAGOGASTRODUODENOSCOPY TRANSORAL DIAGNOSTIC 11/01/11 EGD [facility] inpt H-pylori negative LIG/TRNSXJ FLP TUBE ABDL/VAG APPR UNI/BI 04/09/2006 Tubal ligation MYRINGOTOMY ASPIR&/EUSTACHIAN TUBE NFLTJ ANES 1994 Myringotomy/tubes OOPHORECTOMY PARTIAL/TOTAL UNI/BI left TONSILLECTOMY PRIMARY/SECONDARY <AGE 12 1987 Tonsillectomy ALLERGIES Pamprin Multi-Symptom [Ebftavukbgnxc-Xwslppae-Gioxrce], Buspar [Buspirone], Codeine, Lamotrigine, Nitrofurantoin Macrocrystal, and [...] Cancer Maternal Grandfather BLADDER Heart Maternal Grandfather NH & EMPHYSEMA Social History Tobacco Use Smoking [...] Wt 59.9 kg (132 lb) LMP 05/07/2009 StE211% BMI 21.97 kg/m Physical Exam Vitals and [...] ER evaluation. SAAD Gamez documented in this encounterMarion Hospital12-21-2023 History of Present illness Narrative* Antonio Rios MD - 06/16/2023 9:22 AM EST Antonio Rios MD Department of Orthopaedics Orth[facility] [address] [place] [address] Dept: [phone] Dept June 16, 2023 CHIEF COMPLAINT: Pain and New of the Right Shoulder and Referred by Charles Stanton HPI Patient here for evaluation right shoulder pain. Patient states in September she was moving a bella stand at work and a box started to fall and she caught the box with her right shoulder. She filed Worker's comp but has been denied. She had 2- 3 months of PT and therapist stopped due to her having clicking and popping in her shoulder. She had an MRI at [facility] but did not bring it. States [...] bit of a difficult clinical situation. I thinkwould like her to see one of our [...] is nontender to palpation over the SC joint,clavicle and AC joint. She has mild tenderness over the lateral deltoid. No tenderness to palpationover the posterior shoulder, mild tenderness over the [...] & curettage,TAB ESOPHAGOGASTRODUODENOSCOPY TRANSORAL DIAGNOSTIC 11/01/11 EGD [facility] inpt H-pylori negative LIG/TRNSXJ FLP TUBE ABDL/VAG APPR UNI/BI 04/09/2006 Tubal ligation MYRINGOTOMY ASPIR&/EUSTACHIAN TUBE NFLTJ ANES 1994 Myringotomy/tubes OOPHORECTOMY PARTIAL/TOTAL UNI/BI left TONSILLECTOMY PRIMARY/SECONDARY <AGE 12 1988 Tonsillectomy Family History: FAMILY HISTORY Problem Relation Age of Onset Psychiatry Mother DEPRESSION Hypertension Father Cervical Cancer Maternal Grandmother Hypertension Maternal Grandmother Cancer Maternal Grandfather BLADDER Heart Maternal Grandfather NH & EMPHYSEMA Social History: Social History Tobacco [...] medications for this visit. Allergies: Pamprin Multi-Symptom [Inqgagmpdowmb-Gkkybpkl-Qjxsunn], Buspar [Buspirone], Codeine, Lamotrigine, Nitrofurantoin Macrocrystal, and [...] to requesting physician via US mail. Charles Stanton [address] [facility] [address] Maile Norman MD [address] [facility] [address] Antonio Rios MD documented in this encounterMarion Hospital11-29-2023 Miscellaneous Notes* Telephone Encounter - Sam Khan APRN.CNP - 05/25/2023 4:36 PM EST PDMP website checked and validated. All prescriptions have been APPROPRIATELY filled. No suspiciousactivity was identified. 05/25/2023 by aSm Khan APRN.CNP * Telephone Encounter - Sharmin oMnge LPN - 05/25/2023 10:01 AM EST Patient has been identified by name and [...] you. Sharmin Monge LPN. documented in this encounterMarion Hospital11-20-2023 Miscellaneous Notes* Telephone Encounter - Karen Shore LPN - 05/16/2023 12:43 PM EST Message left on voicemail to call office for update. Karen Shore LPN documented in this encounterMarion Hospital11-17-2023 History of Present illness Narrative* Kimberly Caruso - 05/13/2023 3:37 PM EST POPULATION HEALTH NAVIGATION OUTREACH Action/FYI Pt scheduled Patient Identified by Name and : YES, via phone Outreach Outcome/Action Spoke to patient / parent / legal guardian: Patient scheduled Did you use a PCP flex slot to schedule this appointment? No Reason for Outreach Care Gap or Scheduling/Wellness visits Payer: Payor: [place] MEDICAID / Plan: [facility] MEDICAID / Product Type: Medicaid [...] 13, 2023 3:37 PM documented in this encounterMarion Hospital11-16-2023 Miscellaneous Notes* Telephone Encounter - Karen Mckee APRN.CNS - 05/12/2023 2:34 PM EST See other refill encounter today that addresses this also. Will close this one. * Telephone Encounter - Britt Murray LPN - 05/12/2023 10:13 AM EST Pt requesting a refill for meds, she [...] refills Britt Murray LPN documented in this encounterMarion Hospital11-16-2023 Miscellaneous Notes* Telephone Encounter - Karen Mckee APRN.CNS - 05/12/2023 2:31 PM EST Pain management visit today advised Pat Medina: Discussed the guidelines of pain management and the patient appears to understand this practice would not be able to provide opioid therapy with her THC card. Review PDMP indicates recent THC fill. I cannot refill this for her, will defer to PCP for review. * Telephone Encounter - Aline Gomes RN - 05/12/2023 12:57 PM EST Duplicate request. See phone note. Aline Gomes RN documented in this encounterMarion Hospital11-16-2023 Miscellaneous Notes* Telephone Encounter - Kimberly England - 05/12/2023 10:13 AM EST The referral to Orthopaedics for Chronic right shoulder pain, Labral tear of shoulder, degenerative, right has been submitted via the [facility] Internal Referral Request form on the [facility] Appointment Portal. Confirmation # [id number] Kimberly England documented in this encounterMarion Hospital11-16-2023 History of Present illness Narrative* Vince Heck LPN - 05/12/2023 9:15 AM EST Review of Systems Constitutional: Positive for activity change, chills and fever. Negative for unexpected weight change. Gastrointestinal: Negative for bowel retention or incontinence Genitourinary: Positive for difficulty urinating. Negative for bladder retention or incontinence Musculoskeletal: Positive for arthralgias, back pain and myalgias. Negative for gait problem, jointswelling, neck pain and neck stiffness. Neurological: Negative for weakness, numbness and headaches. Psychiatric/Behavioral: Positive for dysphoric mood and sleep disturbance. Negative for suicidal ideas. The patient is nervous/anxious. * Charles Stanton APRN.LUIS DANIEL - 05/12/2023 9:00 AM EST Images from the original note were not included. [facility] Today's Date: 05/12/2023 Last Visit: N/A [...] Months Frequency - Continuous Intervention/Comfort measure - Medication;Reposition;Relaxation;Exercise;Heat;Pillow support;Positio tommie;Therapeutic techniques-CPRP Comments - - Pain Assessment - - Compliance: PDMP website checked and validated on 05/12/2023 by Charles Stanton APRN.BLUEBERRY GROWER All prescriptions have been APPROPRIATELY filled. No [...] BURSITIS. INTACT ROTATOR CUFF AND GLENOID LABRUM. Polisher Apprentice: [facility] Transcribe Date/Time: Mar 11 2023 3:11P Dictated [...] therapy with her THC card. Will refer thepatient to Dr. Rios due to her shoulder pain and the results of her MRI, we will see patient as needed. Diagnoses: (M25.511, G89.29) Chronic right shoulder pain (primary encounter diagnosis) (M24.111) Labral tear of shoulder, degenerative, right PLAN: Pat Medina would benefit from the following to reach personal goals for decreasing pain,improving function and work participation, and/or improving quality of life: Medications: No Changes - Continue Current Medications Interventional Procedures: None Studies: None Functional Tenriism: NONE Referrals: No additional considerations at present Orthopedics ([phone]) Follow-up: prn with Depending on response to [...] decision making from today's date. Charles Stanton APRN.BLUEBERRY GROWER Pain Management [facility] documented in this encounterMarion Hospital11-09-2023 Miscellaneous Notes* Telephone Encounter - Shanon Lowe RN - 05/05/2023 9:51 AM EST Patient returned call and given provider's message below and patient verbalized understanding. Shilo Lowe RN * Telephone Encounter - Sharon Sutherland RN - 05/05/2023 8:34 AM EST Left vm for patient to return call to nurse for provider's message. * Telephone Encounter - Rick Anderson MD - 05/04/2023 5:59 PM EST This findings of possible this and non specific that are related to her fast heart rate. She should follow up with the primary team, when she is calm and not ill, and the EKG can be rechecked then. I recommended follow ups, and I referred her to gynecology, but I do not see this being scheduled. * Telephone Encounter - Violeta Howard RN - 05/04/2023 8:17 AM EST Patient calls after reviewing EKG results in from 04/30/2023. Patient very concerned with the possible left atrial enlargement and asking provider to review and advise if anything further is neededand asking what that could mean as she has never had heart issues previously. EKG IMPRESSION: SINUS TACHYCARDIA POSSIBLE LEFT ATRIAL ENLARGEMENT NONSPECIFIC ST AND T WAVE ABNORMALITY ABNORMAL ECG Violeta Howard RN documented in this encounterMarion Hospital11-06-2023 Miscellaneous Notes* Telephone Encounter - Michelle Monique - 05/02/2023 9:49 AM EST Patient given results and verbalized understanding of instructions given. Michelle Monique * Telephone Encounter - Keith Diaz PA-C - 05/02/2023 9:22 AM EST Please let patient know that her urine [...] Provider: KEITH DIAZ PA-C documented in this encounterMarion Hospital11-04-2023 History of Present illness Narrative* Rick Anderson MD - 04/30/2023 9:50 AM EDT This note was created using Unisfairriter. Subjective Patient presents with: Palpitations: Immunizations: Flu [...] Take 1 tablet by mouth two times aday for 7 days. oxyCODONE-acetaminophen (PERCOCET) 5-325 mg [...] GYNECOLOGY Rick Anderson MD documented in this encounterMarion Hospital11-04-2023 History of Present illness Narrative* Older, RIGOBERTO Mccormick.BLUEBERRY GROWER - 04/30/2023 9:40 AM EDT CC: Patient presents with: Urinary Problem: Was [...] Anny Pham APRN.LUIS DANIEL documented in this encounterMarion Hospital10-30-2023 Miscellaneous Notes* Telephone Encounter - Aline Gomes RN - 04/25/2023 6:35 PM EDT Spoke with patient. Given message from provider's office. Patient verbalizes understanding. Aline Gomes RN * Telephone Encounter - Karen Shore LPN - 04/25/2023 6:35 PM EDT Spoke with Binu/Pharmacist at [facility], states the escripted RX foe Percocet received and starting to fill it. Patient aware. Karen Shore LPN * Addendum Note - Maile Norman MD - 04/25/2023 6:14 PM EDTAddended by: MAILE NORMAN on: 04/25/2023 06:14 PM Modules accepted: Orders * Telephone Encounter - Maile Norman MD - 04/25/2023 6:12 PM EDT The following approved medication requests have been transmitted electronically. Requested Prescriptions Signed Prescriptions Disp Refills oxyCODONE-acetaminophen (PERCOCET) 5-325 mg tablet 42 tablet 0 Sig: Take 1 tablet by mouth every 8 hours as needed for pain for up to 14 days. Authorizing Provider: MAILE NORMAN MD Noted needed refilled today and needed new RX escripted. * Addendum Note - Aline Gomes RN - 04/25/2023 6:01 PM EDTAddended by: ALINE GOMES on: 04/25/2023 06:01 PM Modules accepted: Orders * Addendum Note - Aline Gomes RN - 04/25/2023 5:43 PM EDTAddended by: ALINE GOMES on: 04/25/2023 05:43 PM Modules accepted: Orders * Telephone Encounter - Aline Gomes RN - 04/25/2023 5:38 PM EDT Francisco, pharmacist @ [facility] calling to say patient brought printed script to pharmacy andthen brought the script back to the clinic and she is not sure where that script is at this time. He says he needs a new e script with start date 04/25/23 in order to fill Percocet tonight. If agree,pended. Aline Gomes RN * Telephone Encounter - Otilia Douglas RN - 04/25/2023 4:52 PM EDT Francisco Pharmacist [facility] [place] called and is notified of providers message and instructions. Gave a verbal order of medication as the order had been printed. He voices understanding. Otilia Douglas RN * Telephone Encounter - Sam Khan APRN.CNP - 04/25/2023 4:32 PM EDT Ok to give verbal ok for fill today since increasing dose and [place] after today. Please see if a new script needs sent. * Telephone Encounter - Aline Gomes RN - 04/25/2023 3:57 PM EDT Ayo Hare calling for verbal okay to fill Percocet today. Pharmacist states patient says this was discussed at today's OV. Aline Gomes RN documented in this encounterMarion [facility]10-30-2023 Miscellaneous Notes* Addendum Note - Sam Khan APRN.CNP - 04/25/2023 3:43 PM EDTAddended by: SAM KHAN on: 04/25/2023 03:43 PM Modules accepted: Orders documented in this encounterMarion Hospital10-30-2023 History of Present illness Narrative* Sam Khan APRN.CNP - 04/25/2023 2:55 PM EDT SUBJECTIVE Pat Medina is a 43 year old female here today for a check up on her medical problems. Chief Complaint Patient presents with: UTI: lower abdominal pain and burning right shoulder: with work related injury treats with oral pain medication percocet, deep heating rub, Pain management has rescheduled her twice. Completed PT through Would like a referral to ortho at [facility] to discuss options HPI Pat Medina is a 43 year old female. Here today for concerns of a possible UTI. Bladder pain with urination. Also having issues still with her shoulder causing pain. Would like to see ortho with [facility] if possible. Her medications were reviewed [...] Take 1 tablet by mouth two times aday for 7 days. No current facility-administered medications [...] from today's visit and in agreement with treatmentplan. Questions answered. Agrees to call the office [...] as well as compliance with taking medications. Age- appropriate health preventative measures were discussed. Return for Keep next scheduled appointment.. Sam Khan APRN-LUIS DANIEL documented in this encounterMarion Hospital10-30-2023 Instructions* Patient Instructions* Sujatha Simpson LPN - 04/25/2023 2:55 PM [...] treated. A physician, nurse practitioner or physician real estate executive assistant may treat with a short course [...] women if symptoms resolve. documented in this [facility]10-16-2023 Miscellaneous Notes* Telephone Encounter - Dai Mccall - 04/11/2023 1:15 PM EDT Tried calling patient three times, kept getting the busy signal so no message could be left. Left patient a Outerstuff message regarding this appointment reschedule. documented in this encounterMarion Hospital10-04-2023 Miscellaneous Notes* Telephone Encounter - Oksana Weldon APRN.CNP - 03/30/2023 4:11 PM EDT Patient notified of CBC, voicemail, advised probable viral, monitor symptoms, if worsening to ER, other alarcon should clear in next few days. Follow up with Dr You as needed. Oksana Weldon APRN.LUIS DANIEL documented in this [facility]10-04-2023 History of Present illness Narrative* Daisha Harper RT(R) - 03/30/2023 8:30 AM EDT Radiology Service Progress Note PATIENT NAME: Pat Medina DATE OF SERVICE: March 30, 2023 TIME: 8:38 AM PATIENT IDENTITY VERIFICATION COMPLETED USING TWO (2) IDENTIFIERS: Name and Date of confirmedby patient verbally. FALL SCREENING: Has the patient [...] 30, 2023 8:38 AM documented in this encounterMarion Hospital09-22-2023 Miscellaneous Notes* Telephone Encounter - Maile Norman MD - 03/18/2023 7:04 PM EDT Noted plans to continue pain med till see pain management per [employer] messages between patient and Sam. The following approved medication requests have been transmitted electronically. Requested Prescriptions Signed Prescriptions Disp Refills oxyCODONE-acetaminophen (PERCOCET) 5-325 mg tablet 28 tablet 0 Sig: Take 1 tablet by mouth twice daily as needed for pain for up to 14 days. Do not start before March 21, 2023. Authorizing Provider: MAILE NORMAN MD * Telephone Encounter - Sharon Sutherland RN - 03/18/2023 9:16 AM EDT Patient has been identified by name and [...] you. Sharon Sutherland RN documented in this encounterMarion Hospital09-19-2023 Hospital Discharge instructions Patient Education 03/15/2023 11:20:46 [...] the time advised by your healthcare provider. Ifyou aren t sure how long to wear [...] talk with your healthcare provider before using thesemedicines. Also talk with your provider if you [...] broken bones, breaks, or fractures. Sometimes fractures dont show up on the first X-ray. Bruises [...] shoulder or upper arm Fever or chills [phone] [employer] [place] [address]. All rights reserved. This information is not intended as a substitute for professional medical care. Always follow yourhealthcare professional's instructions. Follow Up Care 03/15/2023 09:47:09 With:MAILE NORMAN MD Address: [address] [place] [address]- When:2-4 days [facility] 09-19-2023 Note Discharge Instructions Thank you for allowing [facility] to assist you with your healthcare needs. The following is importantdischarge information regarding your hospital visit. Diagnosis from Today's Visit Shoulder pain-swelling Shoulder strain What to Do Next Instructions from Your Care Team Discharge Home Equipment - Ordered -- Sling, Arm Right, 1 month(s), 03/15/23 10:40:00 EDT Post Acute Orders No qualifying data available. You Need to Schedule the Following Appointments Follow Up with MAILE NORMAN MD When Within 2-4 days Where: [facility] [place] [address]- Allergies LaMICtal Pamprin Maximum Pain codeine Medications Please ask your primary doctor or pharmacist before taking any other medication not listed, including over the counter drugs, herbal medications, vitamins and or supplements as they may interact withyour home medications. What How Much When Why [...] have urination problems, an enlarged prostate, glaucoma, astomach ulcer or blockage in your digestive tract, [...] Never share orphenadrine with another person, especially someonewith a history of drug abuse or addiction. [...] moisture, heat, and light. Keep the bottle tightlyclosed when not in use. Keep track of the amount of medicine used from each new bottle. Orphenadrine is a drug of abuse andyou should be aware if anyone is using [...] may report side effects to FDA at 0-012-ISO-1316. What other drugs will affect orphenadrine? Taking orphenadrine with other drugs that make you sleepy or slow your breathing can cause dangerous side effects or . Ask your doctor before taking a sleeping pill, narcotic pain medicine, prescription cough medicine, a muscle relaxer, or medicine for anxiety, depression, or seizures. Other drugs may interact with orphenadrine, including prescription and cxfk-jwy-aveojlx medicines, vitamins, and herbal products. Tell each [...] to ensure that the information provided by [employer]. ('[employer]') is accurate, up-to-date, and complete, but no guarantee is made to that effect. Drug information contained herein may be time sensitive. [employer] information has been compiled for use by healthcare practitioners and consumers in the [place] and therefore [employer] does not warrant that uses outside of the [place] are appropriate, unless specifically indicated otherwise. [employer] drug information does not endorse drugs, diagnose patients or recommend therapy. [employer] drug information isan informational resource designed to assist licensed healthcare practitioners in caring for their p atients and/or to serve consumers viewing this service as a supplement to, and not a substitute for, the expertise, skill, knowledge and judgment of healthcare practitioners. The absence of a warningfor a given drug or drug combination in no way should be construed to indicate that the drug or drug combination is safe, effective or appropriate for any given patient. [employer] does not assume any responsibility for any aspect of healthcare administered with the aid of information [employer] provides. The information contained herein is not intended to cover all possible uses, directions, precautions, warnings, drug interactions, allergic reactions, or adverse effects. If you have questions about the drugs you are taking, check with your doctor, nurse or pharmacist. Copyright 8950-1348 [employer]. Version: 7.01. Revision Date: 02/02/2023. tramadol (TRAM [...] The extended-release form of tramadol is for qpkcsl-wec-walzs treatment of pain. This form of tramadol [...] old. Ultram ER should not be given toanyone younger than 18 years old. Do not [...] , your baby could be born with life- threatening withdrawal symptoms, and may need medical treatment for several weeks. Ask a doctor before using tramadol if you are . Tell your doctor if you notice severe drowsiness or slow breathing in the nursing baby. How should I take tramadol? Follow the directions on your prescription label and read all medication guides. Never use tramadolin larger amounts, or for longer than prescribed. Tell your doctor if you feel an increased urge totake more of this medicine. Never share tramadol with another person, especially someone with a history of drug addiction. MISUSE CAN CAUSE ADDICTION, OVERDOSE, OR . Keep the medicine where others cannot get to it. Sellingor giving away this medicine is against the [...] your pharmacist where to locate a drug take- back disposal program. If there is no take-back [...] Help line at . An overdose can befatal, especially in a child or other person [...] health department. Make sure any person caring foryou knows where you keep naloxone and how [...] reaction (fever, sore throat, burning in your eyes,skin pain, red or purple skin rash that [...] may report side effects to FDA at 2-744-PKC-2797. What other drugs will affect tramadol? You [...] drugs may affect tramadol, including prescription and ipcn-rmm-iqfwjfb medicines, vitamins, and herbal products. Not all [...] may affect tramadol. This includes prescription and vtkw-dnk-zqjjoch medicines, vitamins, and herbal products. Not all [...] to ensure that the information provided by [employer]. ('[employer]') is accurate, up-to-date, and complete, but no guarantee is made to that effect. Drug information contained herein may be time sensitive. [employer] information has been compiled for use by healthcare practitioners and consumers in the [place] and therefore [employer] does not warrant that uses outside of the [place] are appropriate, unless specifically indicated otherwise. [employer]'s drug information does not endorse drugs, diagnose patients or recommend therapy. [facility] drug information isan informational resource designed to assist licensed healthcare practitioners in caring for their p atients and/or to serve consumers viewing this service as a supplement to, and not a substitute for, the expertise, skill, knowledge and judgment of healthcare practitioners. The absence of a warningfor a given drug or drug combination in no way should be construed to indicate that the drug or drug combination is safe, effective or appropriate for any given patient. [facility] does not assume any responsibility for any aspect of healthcare administered with the aid of information [facility] provides. The information contained herein is not intended to cover all possible uses, directions, precautions, warnings, drug interactions, allergic reactions, or adverse effects. If you have questions about the drugs you are taking, check with your doctor, nurse or pharmacist. Copyright 8834-4338 [facility] [employer] Version: 24.. Revision Date: 01/28/2023. Education Materials [...] the time advised by your healthcare provider. Ifyou aren t sure how long to wear [...] talk with your healthcare provider before using thesemedicines. Also talk with your provider if you [...] broken bones, breaks, or fractures. Sometimes fractures dont show up on the first X-ray. Bruises [...] shoulder or upper arm Fever or chills [phone] [employer]. [address] [place] [address]. All rights reserved. This information is not intended as a substitute for professional medical care. Always follow yourhealthcare professional's instructions. Additional Information VACCINATE! IT SAVES LIVES! Members of the community who have not yet received the COVID-19 vaccine and would like to receive it can visit one of [facility] vaccine clinics. There are many vaccine clinic locations within the [facility]. For locations and available times, please visit www.gettheshot.coronavirus.[place].gov/. It is important to note that some COVID mobile vaccine clinics are held outdoors and may be canceled in rainy or stormy conditions. To learn more about pediatric vaccinations (ages 5-11), we invite you to visit the [facility] webpage. https://[email or web address].[email or web address]/pages/[email or web address]-Plfag-Muanycadvhe-Tgotsdhcgz-Ymvmq-[email or web address] stions.htmlTo learn more about the COVID-19 vaccine, we invite you to visit the CDC website for a list of frequently asked questions. https://www.cdc.gov/coronavirus/2019-ncov/vaccines/faq.html [employer] Patient Portal Access Instructions: Stay connected with your healthcare team and access your personal medical information anytime with the [employer] Patient Portal. If you would like a full copy of your medical records please contact the [facility] Medical Records Department Tuesday through Tuesday between 8a.m. and 4:30p.m. Please follow the directions below to access the portal: 1.Access the email account you provided upon registration to the hospital.2.Look for an invitation email from [facility].3.Open the email and access the invitation link: Accept Invitation to [facility]4.Fill in the required moore to create your account. Sign into www.[email or web address] Generation with your username and password that you [...] you will allow to register on the [facility] Patient Portal for access to your information. You can also access the [employer] Patient Portal on the [employer]. Simply click on Health Records under [employer] and then click on the [employer]o logo. HOW TO SAFELY DISPOSE OF PRESCRIPTION MEDICATIONS Please use one of the following methods to safely dispose of your unused medications. 1.Use a drug disposal kit: the drug disposal pouch allows you to safely discard your old and unuseddrugs. Ask your nurse to give you one when you are discharged.2.Visit a local take-back location: Many local pharmacies and police departments have programs that collect old and unwanted prescriptiondrugs. Call your local pharmacy or go to http://bit.[employer]/4K9Is6y to find one close to you.3.Make use of household items: Use cat litter or old coffee grounds to dispose medications if other options arenot available. Mix your drugs with these household products, seal them in an airtight container andthrow it into the garbage. Call [facility]: [phone] to be sure your drugs can be [...] drowsiness, such as benzodiazepines, also known as benzos,including diazepam and alprazolam, muscle relaxants or sleep aids. Never sell or share prescriptionopioids. This is illegal. Store opioids in a [...] aware that I should contact my doctor. 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: Date/Time: Relationship to Patient: Witness Name/Signature: Date/Time: [facility]09-19-2023 Note ORIGINAL EXAMINATION: TWO XRAY VIEWS OF [...] Sign Date: 03/15/2023 10:58:13 AM Ordering Provider: [facility]09-15-2023 History of Present illness Narrative* Charles Ortiz RT(Marcos) - 03/11/2023 2:20 PM EDT Radiology Service Progress Note DATE OF SERVICE: [...] Completed: Upper MSK: Shoulder, right SIGNATURE: RT Krys(Marcos) PATIENT NAME: Pat Medina DATE: March 11, 2023 TIME: 2:25 PM documented in this encounterMarion Hospital09-11-2023 Miscellaneous Notes* Telephone Encounter - Shanon Lowe RN - 03/07/2023 11:53 AM EDT Message left on pt's VM with update below. Pt advised to contact PCP office for any questions or concerns. Shanon Lowe RN documented in this encounterMarion Hospital09-11-2023 Miscellaneous Notes* Telephone Encounter - Sam Khan APRN.CNP - 03/07/2023 10:57 AM EDT I am just now getting a chance to fill this, refill sent, please let her know. Sam Khan APRN.CNP PDMP website checked and validated. All prescriptions have been APPROPRIATELY filled. No suspiciousactivity was identified. 03/07/2023 by Sam Khan APRN.LUIS DANIEL * Telephone Encounter - Violeta Howard RN - 03/07/2023 8:59 AM EDT Patient returns call and asks if prescription can be sent in today before 11 am. She is completely out of medication and needs it mostly to get through work hours and that is when her shift starts. Violeta Howard RN * Telephone Encounter - Shanon Lowe RN - 03/07/2023 8:07 AM EDT Medication refill requested by Patient Requested Prescriptions [...] tablet by mouth twice daily as needed forpain for up to 14 days. nicotine (NICODERM) [...] bedtime. 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 Did mention an arthrogram to patient and she denied this procedure. Radiology aware of same. * Telephone Encounter - Sam Khan APRN.CNP - 03/04/2023 4:55 PM EDT Patient had made the request specifically, can we clarify with her if she would like this changed. * Telephone Encounter - Sujatha Simpson LPN - 03/04/2023 4:16 PM EDT Patient is scheduled 03/11/2023 for MRI of shoulder w/wo contrast. Tech called and states will not see/tell much additional with contrast. Is asking if you meant to order an arthrogram? This can not be completed at [facility] if so. Call ext [phone] with Sam's response to above. documented in this encounterMarion Hospital08-22-2023 History of Present illness Narrative* Lizzy Hamlin - 02/15/2023 3:19 PM EDT POPULATION HEALTH NAVIGATION OUTREACH Action/[facility] Called pt to schedule an appt [...] 15, 2023 3:19 PM documented in this encounterMarion Hospital08-15-2023 History of Present illness Narrative* Sam Khan APRN.BLUEBERRY GROWER - 02/08/2023 12:17 PM EDT SUBJECTIVE Pat Medina is a 43 year old female here today for acute concern. Chief Complaint Patient presents with: Shoulder Injury: of right shoulder and requesting a MRI with contrast. This was a work related injury but due to paperwork issues the claim was closed. Has an trademark attorney trying to appeal the decision. Consult: pain management for right shoulder injury until WC Claim can be approved. Sore Throat: started with fever 1 week ago. Cough moist slightly productive with yellow sputum. HPI Pat Medina is a 43 year old female established patient of Dr. Norman. Presents today acutelyfor concerns of continued right shoulder pain. Injury first occurred on 09/29/2022. Initial report was muscle strain, also found to have a labral tear of the right shoulder. 09/29/2022 was the date of the injury. 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 Has done PT. Has seen Dr. Traore with [facility] and Dr. Stapleton with [facility] for orthopaedics. Has had an MRI without contrast, was recommended she needs contrast MRI to better show the issues in the shoulder. Wants to see pain management in the mean time. Has done steroids. On muscle relaxers. Seen in ER at [facility] 01/25 because pain was so bothersome. Workers comp case, case was closed. Working with trademark attorney. Her medications were reviewed today and her list is now up to date. Medications Current Outpatient Medications Medication Sig acetaminophen (TYLENOL) 325 mg tablet Take 650 mg by mouth every 6 hours as needed. traZODone (DESYREL) 100 mg tablet Take 1 tablet by mouth daily at bedtime. oxyCODONE-acetaminophen (PERCOCET) 5-325 mg tablet Take 1 tablet by mouth twice daily as needed forpain for up to 14 days. iv contrast [...] shoulder over lateral bursa and anteriorly extending into axillary region Skin: General: Skin is warm [...] NSAIDs. She is aware that since her [employer] case has been closed that the testing and visit for today may not be covered by [employer] and that there is also a possibility [...] All prescriptions have been APPROPRIATELY filled. No suspiciousactivity was identified. 02/08/2023 by Sam Khan APRN.BLUEBERRY GROWER Portions of this note have been entered by ancillary staff. I have reviewed and when necessary edited, so that they are an adequate record of my encounter with this patient Please note that parts of this document were created using voice recognition software and therefore may contain grammatical errors. Patient verbalizes understanding of instructions from today's visit and in agreement with treatmentplan. Questions answered. Agrees to call the office [...] as well as compliance with taking medications. Age- appropriate health preventative measures were discussed.. Return if symptoms worsen or fail to improve, for Keep next scheduled appointment.. BOO Borrero documented in this encounterMarion Hospital08-01-2023 Hospital Discharge instructions Patient Education 01/25/2023 13:11:26 ED Pain Management (05/2018)(CUSTOM) WELCOME Pain Management in our Emergency/Acute Care Facility Our staff understands that pain relief is important when someone is hurt or needs emergency care. However, providing ongoing pain relief is often complex. We recommend this be done through your primary health care provider such as your family doctor or auto customize painter. Because mistakes or misuses of pain [...] show a valid photo ID (like a diesel truck driver's license) when you check into the emergency/acute care facility or before receiving a prescription for narcotic pain medication. If you do nothave a photo ID, we may take your picture for the medical record. We may ask you to give a urine sample before prescribing narcotic pain medication. Health care laws, including HIPAA, allow us to request your medical record and share information with other health care providers who are treating you. Before prescribing a narcotic or other controlled substance, we check the [place] Automated Rx Reporting system (OARRS) or a [...] Tuesday: or call the Crisis [facility] at [phone]. It is against the law to attempt to obtain controlled substance pain medicines by deceiving the health care provider caring for you. This can include getting multiple prescriptions from more than oneprovider or using someone else s name to obtain a prescription. Follow Up Care 01/25/2023 12:52:00 With:Keep your appointment on 02/01 with your orthopedic surgeon Address: When:2-4 days With:MAILE NORMAN MD Address: [address] [place] [address]- When:2-4 days [facility] 08-01-2023 Note Discharge Instructions Thank you for allowing [facility] to assist you with your healthcare needs. The following is importantdischarge information regarding your hospital visit. Diagnosis from [...] NORMAN MD When Within 2-4 days Where: [address] [place] [address]- Allergies LaMICtal Pamprin Maximum Pain codeine Medications Please ask your primary doctor or pharmacist before taking any other medication not listed, including over the counter drugs, herbal medications, vitamins and or supplements as they may interact withyour home medications. What How Much When Why [...] retail pharmacies. Medication Leaflets cyclobenzaprine (norma holley) Lorix, Melany Pac with Cyclobenzaprine, Fexmid What is the [...] by blocking nerve impulses (or pain sensations) thatare sent to your brain. Cyclobenzaprine is used [...] in the past 14 days. A dangerous druginteraction could occur. MAO inhibitors include isocarboxazid, linezolid, [...] may report side effects to FDA at 6-864-SLU-8389. What other drugs will affect cyclobenzaprine? Using cyclobenzaprine with other drugs that make you drowsy can worsen this effect. Ask your doctorbefore using opioid medication, a sleeping pill, a [...] drugs may affect cyclobenzaprine, including prescription and kjgg-rqq-klwnbsh medicines, vitamins, and herbal products. Not all [...] to ensure that the information provided by [employer]. ('[employer]') is accurate, up-to-date, and complete, but no guarantee is made to that effect. Drug information contained herein may be time sensitive. [employer] information has been compiled for use by healthcare practitioners and consumers in the [place] and therefore [employer] does not warrant that uses outside of the [place] are appropriate, unless specifically indicated otherwise. [employer] drug information does not endorse drugs, diagnose patients or recommend therapy. [employer] drug information isan informational resource designed to assist licensed healthcare practitioners in caring for their p atients and/or to serve consumers viewing this service as a supplement to, and not a substitute for, the expertise, skill, knowledge and judgment of healthcare practitioners. The absence of a warningfor a given drug or drug combination in no way should be construed to indicate that the drug or drug combination is safe, effective or appropriate for any given patient. [facility] does not assume any responsibility for any aspect of healthcare administered with the aid of information [employer] provides. The information contained herein is not intended to cover all possible uses, directions, precautions, warnings, drug interactions, allergic reactions, or adverse effects. If you have questions about the drugs you are taking, check with your doctor, nurse or pharmacist. Copyright 5873-8820 [employer]. Version: 5.01. Revision Date: 03/22/2018. acetaminophen and [...] someone with a history of drug abuse oraddiction. MISUSE CAN CAUSE ADDICTION, OVERDOSE, OR . [...] where to locate a drug take-back disposal program.If there is no take-back program, flush the unused medicine down the toilet. What happens if I miss a dose? Since this medicine is used for pain, you are not likely to miss a dose. Skip any missed dose if itis almost time for your next dose. Do [...] health department. Make sure any person caring foryou knows where you keep naloxone and how to use it. What should I avoid while taking acetaminophen and oxycodone? Avoid driving or operating machinery until you know how this medicine will affect you. Dizziness ordrowsiness can cause falls, accidents, or severe injuries. [...] if you have slow breathing with long pauses,blue colored lips, or if you are hard to wake up. In rare cases, acetaminophen may cause a severe skin reaction that can be fatal. This could occur even if you have taken acetaminophen in the past and had no reaction. Stop taking this medicine and call your doctor right away if you have skin redness or a rash that spreads and causes blistering andpeeling. Call your doctor at once if you [...] may report side effects to FDA at 0-658-VDB-5584. What other drugs will affect acetaminophen and [...] affect acetaminophen and oxycodone, including prescription and ymmd-epx-nuacfpi medicines, vitamins, and herbal products. Not all [...] to ensure that the information provided by [employer]. ('[employer]') is accurate, up-to-date, and complete, but no guarantee is made to that effect. Drug information contained herein may be time sensitive. [employer] information has been compiled for use by healthcare practitioners and consumers in the [place] and therefore [employer] does not warrant that uses outside of the [place] are appropriate, unless specifically indicated otherwise. [employer] drug information does not endorse drugs, diagnose patients or recommend therapy. [employer] drug information isan informational resource designed to assist licensed healthcare practitioners in caring for their p atients and/or to serve consumers viewing this service as a supplement to, and not a substitute for, the expertise, skill, knowledge and judgment of healthcare practitioners. The absence of a warningfor a given drug or drug combination in no way should be construed to indicate that the drug or drug combination is safe, effective or appropriate for any given patient. [employer] does not assume any responsibility for any aspect of healthcare administered with the aid of information [employer] provides. The information contained herein is not intended to cover all possible uses, directions, precautions, warnings, drug interactions, allergic reactions, or adverse effects. If you have questions about the drugs you are taking, check with your doctor, nurse or pharmacist. Copyright 8807-8345 [employer]. Version: 20.03. Revision Date: 08/01/2020. Education Materials [facility] Pain Management in our Emergency/Acute Care Facility Our staff understands that pain relief is important when someone is hurt or needs emergency care. However, providing ongoing pain relief is often complex. We recommend this be done through your primary health care provider such as your family doctor or auto customize painter. Because mistakes or misuses of pain [...] show a valid photo ID (like a diesel truck driver's license) when you check into the emergency/acute care facility or before receiving a prescription for narcotic pain medication. If you do nothave a photo ID, we may take your picture for the medical record. We may ask you to give a urine sample before prescribing narcotic pain medication. Health care laws, including HIPAA, allow us to request your medical record and share information with other health care providers who are treating you. Before prescribing a narcotic or other controlled substance, we check the [place] Automated Rx Reporting system (OARRS) or a [...] or call the Crisis Intervention Center of [facility] at [phone]. It is against the law to attempt to obtain controlled substance pain medicines by deceiving the health care provider caring for you. This can include getting multiple prescriptions from more than oneprovider or using someone else s name to obtain a prescription. Additional Information VACCINATE! IT SAVES LIVES! Members of the community who have not yet received the COVID-19 vaccine and would like to receive it can visit one of [facility] vaccine clinics. There are many vaccine clinic locations within the [facility]. For locations and available times, please visit www.gettheshot.coronavirus.[place].gov/. It is important to note that some COVID mobile vaccine clinics are held outdoors and may be canceled in rainy or stormy conditions. To learn more about pediatric vaccinations (ages 5-11), we invite you to visit the [facility] webpage. https://www.[email or web address]asts.[email or web address]/[email or web address]-Kbdop-Jikmksnruaf-Qoekuhqhdz-Uaspv-Peg stions.htmlTo learn more about the COVID-19 vaccine, we invite you to visit the CDC website for a list of frequently asked questions. https://www.cdc.gov/coronavirus/2019-ncov/vaccines/faq.html [facility] Patient Portal Access Instructions: Stay connected with your healthcare team and access your personal medical information anytime with the [facility] Patient Portal. If you would like a full copy of your medical records please contact the [facility] Medical Records Department Tuesday through Tuesday between 8a.m. and 4:30p.m. Please follow the directions below to access the portal: 1.Access the email account you provided upon registration to the hospital.2.Look for an invitation email from [facility].3.Open the email and access the invitation link: Accept Invitation to [facility].Fill in the required moore to create your account. Sign into www.[employer] Services with your username and password that you [...] you will allow to register on the [facility] Patient Portal for access to your information. You can also access the [facility] Patient Portal on the [employer]. Simply click on Health Records under [place] and then click on the [employer] logo. HOW TO SAFELY DISPOSE OF PRESCRIPTION MEDICATIONS Please use one of the following methods to safely dispose of your unused medications. 1.Use a drug disposal kit: the drug disposal pouch allows you to safely discard your old and unuseddrugs. Ask your nurse to give you one when you are discharged.2.Visit a local take-back location: Many local pharmacies and police departments have programs that collect old and unwanted prescriptiondrugs. Call your local pharmacy or go to http://[employer]/3Q4Ui7o to find one close to you.3.Make use of household items: Use cat litter or old coffee grounds to dispose medications if other options arenot available. Mix your drugs with these household products, seal them in an airtight container andthrow it into the garbage. Call [facility]: [phone] to be sure your drugs can be [...] drowsiness, such as benzodiazepines, also known as benzos,including diazepam and alprazolam, muscle relaxants or sleep aids. Never sell or share prescriptionopioids. This is illegal. Store opioids in a [...] aware that I should contact my doctor. 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 * Telephone Encounter - Otilia Douglas RN - 01/10/2023 12:37 PM EDT Pt called in had a missed call, asked if providers office had called her. Let Pt know that I could not find anywhere that someone had tried to contact her as of yet, but her message had been put through to provider. * Telephone Encounter - Violeta Howard RN - 01/10/2023 11:55 AM EDT Patient calls at the suggestion of 180 to request a refill of xanax for increased anxiety/panic attacks. Nurse triage completed. Protocol recommends see provider within 24 hours. Patient asking for 7day refill of xanax or appointment today with [...] case. August prescription of 7 pills lasted heruntil last week. 2. ANXIETY SYMPTOMS: Overwhelmed, tense, [...] harm. No plan. Patient reports she has thenumbers to call if needs help and if [...] pain, sweating, nausea, or diarrhea currently. When hasincreased episodes does have palpitations and racing heart. Protocols used: Anxiety and Panic Xcaqto-FXGJN-BY documented in this encounterMarion Hospital07-17-2023 History of Present illness Narrative* Maile Norman MD - 01/10/2023 3:43 PM EDT This note was created using NoteWriter. Subjective Pat Medina is a 42 year old female. Patient presents with: Established Patient: Discuss medication and panic attacks SUBJECTIVE: aPt Medina is a 42 year old year [...] management. Maile Norman MD documented in this encounterMarion Hospital06-13-2023 Miscellaneous Notes* Telephone Encounter - Maureen Arroyo LPN - 12/07/2022 9:[address] Mccloud should be able to access patients chart and referral. Patient telephoned to see if any issues with scheduling. Patient has not yet reached out to pain management. Will call this office back if we need to send anything further over to Dr. Mccloud's office. Maureen Arroyo LPN * Telephone Encounter - Gayla Ayala APRN.CNP - 12/07/2022 7:28 AM EDT Order for pain management filed. Please fax as patient requests and let her know when completed. Gayla Ayala APRN.CNP * Telephone Encounter - Yen Jo LPN - 12/06/2022 2:14 PM EDT Patient notified of results.Patient stated that pain management was recommended, please place consult order fo rpain management Patient is needing information for pain management- and their phone # [phone]. Phoned patient back and given phone # for . Yen Jo LPN * Telephone Encounter - Charles Garcia Ma - 12/06/2022 2:04 PM EDT Left message for patient to return call. Charles Garcia Ma * Telephone Encounter - Charles Garcia Ma - 12/06/2022 2:02 PM EDT ----- Message from Arnie Carrasco MD sent at 12/06/2022 12:35 PM EDT ----- Xray of her sacrum/coccyx is normal. Continue treatment as discussed in office. documented in this encounterMarion Hospital06-07-2023 History of Present illness Narrative* Constanza Stafford RT(R) - 12/01/2022 2:00 PM EDT Radiology Service Progress Note PATIENT NAME: Pat Medina DATE OF SERVICE: December 01, 2022 TIME: 2:00 PM PATIENT IDENTITY VERIFICATION COMPLETED USING TWO (2) IDENTIFIERS: Name and Date of confirmedby patient verbally. FALL SCREENING: Has the patient [...] 01, 2022 2:00 PM documented in this encounterMarion Hospital06-07-2023 History of Present illness Narrative* Gayla Ayala, RIGOBERTO.BLUEBERRY GROWER - 12/01/2022 1:45 PM EDT 12/01/2022 Patient presents with: Acute Visit: Area [...] Temporomandibular joint disorders, unspecified ALLERGIES Pamprin Multi-Symptom [Vxnysslviuzex-Ojtfkyyp-Qossdga], Buspar [Buspirone], Codeine, Lamotrigine, Nitrofurantoin Macrocrystal, and [...] 3.2 oz) LMP 05/07/2009 SpO2 99% BMI 20.83kg/m . Vital signs reviewed by this provider. [...] which included preparing to see the patient, pdnu-ia-brja patient care, completing clinical documentation, obtaining and/or reviewing separately obtained history, performing a medically appropriate examination, counseling and educating the pat ient/family/caregiver, and ordering medications, tests, or procedures. documented in this encounterMarion Hospital06-07-2023 Miscellaneous Notes* Telephone Encounter - Gayla Ayala APRN.CNP - 12/01/2022 10:39 AM EDT Reviewed. Gayla Ayala APRN.LUIS DANIEL * Telephone Encounter - Shanon Lowe RN - 12/01/2022 10:34 AM EDT Pt calling to request appt with provider [...] today. Shanon Lowe RN documented in this encounterMarion Hospital03-24-2023 Miscellaneous Notes* Telephone Encounter - Violeta Aguirre LPN - 09/17/2022 10:24 AM EDT Patient notified of results and provider's instructions. Patient verbalizes understanding. Violeta Aguirre LPN * Telephone Encounter - Maile Norman MD - 09/17/2022 9:50 AM EDT Last seen by Karen Durant 2022. No follow up scheduled yet Last [...] 30 days. Authorizing Provider: MAILE NORMAN MD * Telephone Encounter - Sharmin Monge LPN - 09/17/2022 9:34 AM EDT Patient calling, states that she is having a lot of personal things happening at once and her anxiety is really increasing. She has a good job and does not want to miss work but she has not been ableto sleep. She would like PCP to call in a small amount of Xanax to get her through. States that shehas been taking the trazodone but that is not helping with the panic feeling. [facility]. Please advise. documented in this encounterMarion Hospital03-16-2023 History of Present illness Narrative* Pennie Clemente APRN.BLUEBERRY GROWER - 09/09/2022 10:46 AM EDT Subjective Cough Associated symptoms include headaches, sore throat and myalgias. Pertinent negatives include no earpain. Pat Medina is a 42 year old female who presents with 3 days of cough, congestion, headache, body aches, sore throat, feeling tired, some diarrhea. She is currently taking PCN for a dental i nfection. She has taken OTC medication at home [...] Wt 58.2 kg (128 lb 3.2 oz) LMP107/07/2008 SpO2 98% BMI 21.33 kg/m PAST MEDICAL [...] & curettage,TAB ESOPHAGOGASTRODUODENOSCOPY TRANSORAL DIAGNOSTIC 11/01/11 EGD [facility] inpt H-pylori negative LIG/TRNSXJ FLP TUBE ABDL/VAG APPR UNI/BI 04/09/2006 Tubal ligation MYRINGOTOMY ASPIR&/EUSTACHIAN TUBE NFLTJ ANES 1994 Myringotomy/tubes OOPHORECTOMY PARTIAL/TOTAL UNI/BI left TONSILLECTOMY PRIMARY/SECONDARY <AGE 12 1988 Tonsillectomy ALLERGIES Pamprin Multi-Symptom [Klcmlilcgmsiq-Puqygsiy-Myiefhh], Buspar [Buspirone], Codeine, Lamotrigine, Nitrofurantoin Macrocrystal, and [...] Cancer Maternal Grandfather BLADDER Heart Maternal Grandfather NH & EMPHYSEMA Social History Tobacco Use Smoking [...] Pennie Clemente APRN.LUIS DANIEL documented in this encounterMarion Hospital03-16-2023 Instructions* Patient Instructions* Pennie Clemente APRN.BLUEBERRY GROWER - 09/09/2022 10:46 AM EDT ASSESSMENT/PLAN: 1. [...] Discussed expected course of illness Pennie Clemente APRN.BLUEBERRY GROWER Beginning Home Isolation Isolation is used to separate people infected with SARS-CoV-2, the virus that causes COVID-19, frompeople who are not infected. People who are [...] to your local emergency facility: Notify the nitroglycerin separator operator that you are seeking care for [...] expert at your local health department to determinewhen you can be around others. How to Manage Common Symptoms Associated with COVID for Adults Fever- Fever is a temperature over 100.4 F and can occur when the body is fighting an infection. Tohelp treat a fever: Drink plenty of fluids [...] your chest such as Vicks, which can helpreduce cough. Try cough drops. Avoid smoking and other strong odors or perfumes. Try breathing exercises to keep your lungs open and clear. Take a big deep breath through your noseand hold for 5 seconds before slowly releasing. [...] of water every 10-15 minutes and increase astolerated. You can try sucking an ice cube [...] or concerning to you. documented in this encounterMarion Hospital03-15-2023 Miscellaneous Notes* Telephone Encounter - Maile Norman MD - 09/08/2022 8:33 PM EDT Noted. Maile Norman MD * Telephone Encounter - Naty Isabel LPN - 09/08/2022 4:47 PM EDT Patient calling asking for appt to be seen, she has headache, sore throat, diarrhea, ears hurt, coughing, runny nose, fatigued, said she feels awful. Patient said she was at [facility] but has a line and did not want to wait. Aware PCP has no openings at this late hour of the day. 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 Advised to go back to express care for evaluation may need COVID and influenza testing done. Patient said she may go back a little later or first thing morning. documented in this encounterMarion Hospital02-15-2023 Miscellaneous Notes* Telephone Encounter - Otilia Douglas RN - 08/11/2022 9:13 AM EST Pt already received message yesterday. * Telephone Encounter - Otilia Douglas RN - 08/10/2022 2:32 PM EST Called and left a voicemail for the Patient to call back and ask for a nurse to receive the providers message. Otilia Douglas RN * Telephone Encounter - Maile Norman MD - 08/10/2022 1:37 PM EST Patches usually for 6 to 8 weeks at 21 then 2 weeks or so on 14 then 2 weeks or so on 7, but can adjust taper as needed. Does not have to taper all the way down to 7 if able to completely stop after 21 or 14 patch. * Telephone Encounter - Otilia Douglas RN - 08/10/2022 10:52 AM EST Pt called and is notified of providers message and instructions. Pt voices understanding. Pt askingif there is a regimen for when she is to start decreasing the dose on the patches, or is it when she feels comfortable. Please call and advise. Otilia Douglas RN * Telephone Encounter - Otilia Douglas RN - 08/09/2022 8:22 AM EST Called and left a voicemail for the Patient to call back and ask for a nurse to receive the providers message. Otilia Douglas RN * Telephone Encounter - Maile Norman MD - 08/06/2022 7:48 PM EST Not sure how soon after awakening needs [...] decides to smoke--ideally has no cigarettes available tosmoke. The following approved medication requests have been [...] per day Authorizing Provider: MAILE NORMAN MD * Telephone Encounter - Sujatha Simpson LPN - 08/06/2022 4:54 PM EST Patient called asking status of message. * Telephone Encounter - Otilia Douglas RN - 08/03/2022 11:29 AM EST Pt called in and reports she would like to quit smoking. She states she smokes 1 1/2 packs of cigarettes a day for 20 years. She is asking if she could have nicotine patches and gum called into [facility] in [place] for her. She state she will need high dose of the patches. Please call Pt back and advise. documented in this encounterMarion Hospital2023 History of Present illness Narrative* Kimberly Loya APRN.BLUEBERRY GROWER - 07/18/2022 11:21 AM EST CC: Patient presents with: Headache: sore throat, [...] Wt 59.9 kg (132 lb) LMP 05/27/2009 SdD995% BMI 21.97 kg/m General appearance: alert, cooperative, [...] <AGE 12 1987 Tonsillectomy ALLERGIES Pamprin Multi-Symptom [Bcbfzqbfrzaui-Xrwiujup-Pfqejpg], Buspar [Buspirone], Codeine, Lamotrigine, Nitrofurantoin Macrocrystal, and Promethazine-Phenylephrine MEDICATIONS acetaminophen (TYLENOL) 325 mg tablet Take 650 mg by mouth every 6 hours as needed. traZODone (DESYREL) 100 mg tablet Take 1 tablet by mouth daily at bedtime. FAMILY HISTORY Problem Relation Age of Onset Psychiatry Mother DEPRESSION Cervical Cancer Maternal Grandmother Hypertension Maternal Grandmother Cancer Maternal Grandfather BLADDER Heart Maternal Grandfather NH & EMPHYSEMA Social History Tobacco Use Smoking [...] Patient agreeable to treatment plan. Kimberly Loya APRN.LUIS DANIEL documented in this encounterMarion Hospital12-06-2022 Miscellaneous Notes* Telephone Encounter - Rosa M Mercado RN - 06/01/2022 12:23 PM EST 05/31/2022 Bonita Bajwa Good morning, Reached out to patient to get her scheduled, patient states that she is already scheduled for this at [facility]. Thank you, Bonita * Telephone Encounter - Rosa M Mercado RN - 05/27/2022 10:12 AM EST Email sent to the [facility] requesting an US guided breast biopsy for Pat. Rosa M Mercado RN documented in this encounterMarion Hospital11-30-2022 History of Present illness Narrative* Kuldeep Ellis MD - 05/26/2022 6:53 AM EST FOLLOW UP VISIT NAME: Pat [facility] NO.: [id number] DATE OF SERVICE: 05/25/2022 : 1980 REFERRING PHYSICIAN: Maile Norman MD The patient is a 42 year old female with a complaint of a palpable breast mass. The patient notes amass in the lower inner quadrant of her right breast. The patient has noticed this mass for 3 months. She notes pain in the area. She notes it is tender to touch. She feels the site is gradually growing in size. The patient had a mammogram and ultrasound on May 12, [address] [facility] which demonstrated: Ultrasound-a palpable abnormality listed as 1.1 x 1.4 x 0.4 cm slightly irregular recommending a biopsy. Bilateral mammogram demonstrated no specific abnormalities . She does not perform a self breast exam routinely. She notes no skin changes. She denies nipple discharge. She notes no axillary masses. She notes no family history of breast problems. She notes nosignificant breast trauma or breast difficulties in the past. The patient does smoke cigarettes and notes a chronic cough The patient is being seen by me at the request of Dr. Maile Norman MD for my opinion and adviceregarding palpable right breast mass and ultrasound specific abnormality. I did not have access to the ultrasound or radiographic images when the patient was initially seen.I saw no 1 to 1.4 cm abnormalities at the site of her tender mass. I saw nonspecific fibroadenomatous changes. I therefore did not perform a biopsy. I asked for the images from [facility] to be noted in the [facility] system. The patient returns today [...] imaging for me to compare and perform abiopsy today. My office will again try to get the proper images loaded in the [facility] system. Given the patient's anxiety and the fact that I will be out of the office for the next week I will attempt to have the biopsy performed by the breast radiologist as soon as possible in the [facility] system. Diagnoses: (N63.10) Mass of right breast, unspecified quadrant (primary encounter diagnosis) Return to Clinic: The patient is instructed to follow-up with me as needed. Kuldeep Ellis MD documented in this encounterMarion Hospital11-17-2022 History of Present illness Narrative* Kuldeep Ellis MD - 05/13/2022 4:52 PM EST HISTORY AND PHYSICAL - BREAST COMPLAINT Pat Ana Rosaparis 1980 REFERRING PHYSICIAN: Maile Norman MD CHIEF [...] to touch. She feels the site is graduallygrowing in size. The patient had a mammogram and ultrasound on May 12, [address] [facility] which demonstrated: Ultrasound-a palpable abnormality listed as 1.1 x 1.4 x 0.4 cm slightly irregular recommending a biopsy. Bilateral mammogram demonstrated no specific abnormalities . She does not perform a self breast exam routinely. She notes no skin changes. She denies nipple discharge. She notes no axillary masses. She notes no family history of breast problems. She notes nosignificant breast trauma or breast difficulties in the [...] & curettage,TAB ESOPHAGOGASTRODUODENOSCOPY TRANSORAL DIAGNOSTIC 11/01/11 EGD [facility] inpt H-pylori negative LIG/TRNSXJ FLP TUBE ABDL/VAG [...] medications for this visit. ALLERGIES: Pamprin Multi-Symptom [Haahklllzfguq-Iogvkfka-Amsydhi], Buspar [Buspirone], Codeine, Lamotrigine, Nitrofurantoin Macrocrystal, and [...] Cancer Maternal Grandfather BLADDER Heart Maternal Grandfather NH & EMPHYSEMA REVIEW OF SYMPTOMS: The review of systems data was entered by the nurse and reviewed by sc Nursing Notes: Rosa M Mercado RN 05/13/2022 12:33 PM Signed REVIEW OF SYSTEMS: General: The patient NOTES fatigue, denies weight loss, denies weight gain, denies feeling hot, anddenies feelings of cold. Eyes: The patient denies [...] failure, other cardiac issues, denies claudication, denies coldfeet, denies peripheral arterial stent. Respiratory: The patient [...] back pain/injury, denies back problems, denies sciatica, deniesknee/foot trouble, denies arthritis, or denies gout. When was patient's last Mammogram screening? 05/12/2022 Last Colonoscopy: None Rosa M Mercado RN PHYSICAL EXAMINATION: General: The patient is 42 year old female, well nourished, well hydrated in no acute distress. Thepatient is oriented to time, place, and person. VITALS: Blood pressure 112/70, pulse 110, temperature 36.7 C (98 F), height 165.1 cm (5' 5), weight 57.6 kg (127 lb), last menstrual period 05/27/2009, SpO2 100 %. Body mass index is 21.13 kg/m . HEENT: Normal cephalic, ataumatic, pupils are equally round, sclera are anicteric, mucous membranesare moist, oropharynx is clear. Neck has no [...] in depth. An area of slight abnormality wasnoted medial to the tenderness area this was only 3 mm in size. Assessment IMPRESSION: 1.4 cm noted abnormality on ultrasound, tenderness right lower mid breast area PLAN: I discussed with the patient that I do not have the imaging from [facility] unfortunately today. The area that I [...] weeks. Kuldeep Ellis MD documented in this encounterMarion Hospital11-17-2022 Nurse Note* Rosa M Mercado RN - 05/13/2022 12:31 PM EST REVIEW OF SYSTEMS: General: The patient NOTES fatigue, denies weight loss, denies weight gain, denies feeling hot, anddenies feelings of cold. Eyes: The patient denies [...] failure, other cardiac issues, denies claudication, denies coldfeet, denies peripheral arterial stent. Respiratory: The patient [...] back pain/injury, denies back problems, denies sciatica, deniesknee/foot trouble, denies arthritis, or denies gout. When was patient's last Mammogram screening? 05/12/2022 Last Colonoscopy: None Rosa M Mercado RN documented in this encounterMarion Hospital11-17-2022 Miscellaneous Notes* Telephone Encounter - Naty Isabel LPN - 05/13/2022 8:07 AM EST Patient calling asking about breast ultrasound results. Went over results, notes below from Dr Norman with understanding. Assisted with transfer to mill order scheduler to get Gen surgery appt set up. * Telephone Encounter - Maile Norman MD - 05/12/2022 7:50 PM EST Order filed. Biopsy of lump recommended. * Telephone Encounter - Violeta Aguirre LPN - 05/12/2022 3:53 PM EST Pt completed diagnostic mammogram and ultrasound. They are in scanned documents. Please review. documented in this encounterMarion Hospital11-15-2022 Miscellaneous Notes* Telephone Encounter - Sujatha Simpson LPN - 05/11/2022 1:55 PM EST Order have been faxed to [facility] at this time and they will call her to schedule appointment. * Telephone Encounter - Otilia Douglas RN - 05/11/2022 12:03 PM EST Pt called and is notified of providers message and instructions. Pt voices understanding. Pt askingif order can be sent to [facility]. Faxed orders to [phone]. Otilia Douglas RN * Telephone Encounter - Sam Khan APRN.CNP - 05/11/2022 11:40 AM EST New order signed, please send, thanks!! * Telephone Encounter - Sujatha Simpson LPN - 05/11/2022 10:33 AM EST Since she hasn't had a mammogram before [facility] wants a diagnostic bilateral mammogram and us of the right breast.(This order is already in place.) * Telephone Encounter - Sam Khan APRN.CNP - 05/11/2022 9:05 AM EST Please let her know that unfortunately there is a long wait time for breast imaging. If she prefersshe can check and see if she is able to get in sooner to do it somewhere else like [facility] or [place]. With her having the issues it would be best to get it done as soon as able so if she would like go else where we can send the order where ever she would like to get the imaging done. * Telephone Encounter - Michelle Mena Pss - 05/10/2022 9:50 AM EST Patient called regarding diag mamm appt in May. She states concern with waiting that long. Please call patient and advise if okay to wait. Okay to leave detailed message on voicemail. documented in this encounterMarion Hospital11-11-2022 Instructions* Patient Instructions* Karen Mckee APRN.CNS - 05/07/2022 11:39 AM EST documented in this encounterMarion Hospital11-11-2022 History of Present illness Narrative* Karen Mckee APRN.CNS - 05/07/2022 11:20 AM EST Images from the original note were not [...] Insomnia Last seen in office 04/2021 Maile oNrman MD. 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 Insomnia, unspecified type - ICD9: 780.52, ICD10: G47.00(primary diagnosis) - COMP METABOLIC PANEL - CBC + DIFF - TRAZODONE 100 MG TABLET 4. Breast pain - ICD9: 611.71, ICD10: N64.4 5. Mass of lower inner quadrant of right breast - ICD9: 611.72, ICD10: N63.14 Endorse checking this at her earliest convenience - [facility] DIAGNOSTIC RT - US BREAST LTD RT 6. Chronic right shoulder pain - ICD9: 719.41, 338.29, ICD10: M25.511, G89.29 HEP orthoinfo handout Meloxicam QD prn - CONSULT TO ORTHOPAEDICS - CONSULT TO PHYSICAL THERAPY 7. Encounter for well woman exam with routine gynecological exam - ICD9: V72.31, ICD10: Z01.419 - CONSULT TO QUALITY ASSURANCE ASSESSOR Did not complete labs today - endorse complete Scheduled mammogram, no other visit, stated needed to leave. Karen Mckee APRN.DRIER TENDER [place]THAL[place] Medical Decision Making: Problems: Low: Acute, uncomplicated illness or injury, 2+ self-limited or minor problems and Stable chronic illness Data: Unique test(s) ordered: 2 Risk: Moderate: Drug management Medical Decision Making Level: 3 - Low documented in this encounterMarion Hospital10-25-2022 Miscellaneous Notes* Telephone Encounter - Britt Murray LPN - 04/20/2022 8:21 AM EDT Pt requesting refill. JESUS: 05/12/21 NOV: 05/07/22 Last Refill: 03/05/22 Britt Murray LPN documented in this encounterMarion Hospital10-17-2022 History of Present illness Narrative* Kimberly Hedrickedyyee - 04/12/2022 12:01 PM EDT POPULATION HEALTH NAVIGATION OUTREACH Action/FYI Left voicemail Pt identified by name and : NO Outreach Outcome/Action Unable to reach patient: Left message MyChart message sent Did you use a PCP flex slot to schedule this appointment? No Reason for Outreach Care Gap or Scheduling/Wellness visits Payer: Payor: [place] [employer]ICA[employer] / Plan: [place] [facility] MEDICAID / Product Type: Medicaid [...] 12, 2022 12:02 PM documented in this encounterMarion Hospital09-20-2022 History of Present illness Narrative* Constanza Stafford RT(R) - 03/16/2022 8:40 AM EDT Radiology Service Progress Note PATIENT NAME: Pat Medina DATE OF SERVICE: March 16, 2022 TIME: 8:36 AM PATIENT IDENTITY VERIFICATION COMPLETED USING TWO (2) IDENTIFIERS: Name and Date of confirmedby patient verbally. FALL SCREENING: Has the patient had 2 falls in the last year or 1 fall with injury or currently using an Ambulatory Assistive Device (Walker, Cane, Wheelchair, Crutches, etc.)? No PATIENT GENDER DATA: Female. status: : No status: NO. PATIENT RELEVANT IMPLANT DATA REVIEWED: Not Applicable RADIOLOGY DEPARTMENT: General X-ray: Exam(s) Completed: Upper Extremity X- Ray(s): Fingers/Thumb, right PERIPHERAL IV DATA: Not applicable SIGNED BY: RT Verónica(R) March 16, 2022 8:36 AM documented in this encounterMarion Hospital09-20-2022 History of Present illness Narrative* Pennie Clemente APRN.BLUEBERRY GROWER - 03/16/2022 8:34 AM EDT Subjective HPI Pat Medina is a 42 year old female who presents with a possible foreign body in her right index finger. It has been present for about one month. She got the splinter by mopping her wooden floor with a cloth. She has been trying to squeeze the splinter out and sometimes some fluid comes outbut she feels the splinter is still present. She states it is tender with touch. Review of Systems Constitutional: Negative for chills and fever. Musculoskeletal: Negative for joint pain. Skin: Negative for itching and rash. BP 122/80 Pulse 107 Temp 36.5 C (97.7 F) (Tympanic) Resp 18 Wt 58 kg (127 lb 12.8 oz) LMP107/28/2008 SpO2 96% BMI 21.27 kg/m PAST MEDICAL [...] <AGE 14 1987 Tonsillectomy ALLERGIES Pamprin Multi-Symptom [Gquchyuqszwql-Chvvxdbe-Heyyrpn], Buspar [Buspirone], Codeine, Lamotrigine, Nitrofurantoin Macrocrystal, and [...] by mouth once daily. (Patient not taking: Reportedon 10/13/2021 ) FAMILY HISTORY Problem Relation Age of Onset Psychiatry Mother DEPRESSION Cervical Cancer Maternal Grandmother Hypertension Maternal Grandmother Cancer Maternal Grandfather BLADDER Heart Maternal Grandfather NH & EMPHYSEMA Social History Tobacco Use Smoking [...] 2-3 times daily, 15 minutes per time. ePnnie Clemente APRN.CNP documented in this encounterMarion Hospital09-20-2022 Instructions* Patient Instructions* Pennie Clemente APRN.CNP - 03/16/2022 8:30 AM EDT ASSESSMENT/PLAN: 1. Splinter of finger - ICD9: 915.6, ICD10: S60.459A - XR DIGIT GENERAL 3V FRONTAL/LAT/OBL RIGHT - CONSULT PANEL TO ORTHOPAEDICS - warm water with epsom salt soaks 2-3 times daily, 15 minutes per time. Pennie Clemente APRN.CNP documented in this encounterMarion Hospital09-13-2022 Miscellaneous Notes* Telephone Encounter - Adriane Torres Ma - 03/09/2022 2:01 PM EDT VM not set up. Mychart sent * Telephone Encounter - Maile Norman MD - 03/05/2022 2:02 PM EDT Past due for follow up since last April Had outside labs but LFTs not included Filed CBC and CMP. The following approved medication requests have been transmitted electronically. Requested Prescriptions Signed Prescriptions Disp Refills traZODone (DESYREL) 100 mg tablet 30 tablet 0 Sig: Take 1 tablet by mouth daily at bedtime. Authorizing Provider: MAILE NORMAN MD * Telephone Encounter - Violeta Howard RN - 03/05/2022 10:58 AM EDT Patient has been identified by name and [...] you. Violeta Howard RN documented in this encounterCleveland [id number] History of Present illness Narrative* Galo Bernal, OUTREACH NURSE.BLUEBERRY GROWER - 01/20/2022 3:33 PM EDT Subjective HPI Nontoxic-appearing female presents urgent care [...] & curettage,TAB ESOPHAGOGASTRODUODENOSCOPY TRANSORAL DIAGNOSTIC 11/01/11 EGD [facility] inpt H-pylori negative LIG/TRNSXJ FLP TUBE ABDL/VAG APPR UNI/BI 04/09/2006 Tubal ligation MYRINGOTOMY ASPIR&/EUSTACHIAN TUBE NFLTJ ANES 1994 Myringotomy/tubes OOPHORECTOMY PARTIAL/TOTAL UNI/BI left TONSILLECTOMY PRIMARY/SECONDARY <AGE 12 1987 Tonsillectomy ALLERGIES Pamprin Multi-Symptom [Ksguzktzwylfu-Ldwwcdxe-Zqpztwz], Buspar [Buspirone], Codeine, Lamotrigine, Nitrofurantoin Macrocrystal, and [...] Cancer Maternal Grandfather BLADDER Heart Maternal Grandfather NH & EMPHYSEMA Social History Tobacco Use Smoking [...] or bulging. Nose: Congestion present. Mouth/Throat: Lips: [place]. Mouth: Mucous membranes are moist. Pharynx: Oropharynx [...] any new, worsening, or symptoms lasting longer thananticipated. The patient's clinical presentation is otherwise unremarkable at this time. Based on exam and clinical finding, the patient is stable for discharge. Plan of care was discussed with patient. Patient verbalizes understanding and agrees to plan of care. This note was generated using VOZ software. It may contain errors in wording, punctuation, or spelling. Galo Bernal APRN.LUIS DANIEL documented in this encounterMarion Hospital07-27-2022 Instructions* Patient Instructions* Gaol Bernal APRN.CNP - 01/20/2022 3:33 PM EDT How to Manage Common Symptoms Associated with COVID for Adults Fever- Fever is a temperature over 100.4 F and can occur when the body is fighting an infection. Tohelp treat a fever: Drink plenty of fluids [...] your chest such as Vicks, which can helpreduce cough. Try cough drops. Avoid smoking and other strong odors or perfumes. Try breathing exercises to keep your lungs open and clear. Take a big deep breath through your noseand hold for 5 seconds before slowly releasing. [...] of water every 10-15 minutes and increase astolerated. You can try sucking an ice cube [...] or concerning to you. documented in this encounterMarion Hospital07-12-2022 History of Present illness Narrative* Galo Bernal APRN.CNP - 01/05/2022 12:59 PM EDT Nontoxic-appearing female presents urgent care chief complaint [...] plan of care will be [facility] at [facility]. Galo Bernal APRN.LUIS DANIEL documented in this encounterMarion Hospital06-24-2022 Miscellaneous Notes* Telephone Encounter - Amber Minaya LPN - 12/18/2021 12:02 PM EDT Pt called I asking for her blood type. She had a type and screen done in 08-10-05. Mailed to pt. Amber Minaya LPN documented in this encounterMarion Hospital09-13-2021 History of Present illness Narrative* Constanza Stafford RT(R) - 03/09/2021 9:50 AM EDT Radiology Service Progress Note PATIENT NAME: Pat Medina DATE OF SERVICE: March 09, 2021 TIME: 9:50 AM PATIENT IDENTITY VERIFICATION COMPLETED USING TWO (2) IDENTIFIERS: Name and Date of confirmedby patient verbally. FALL SCREENING: Has the patient [...] 09, 2021 9:50 AM documented in this encounterMarion Hospital12-20-2016 History of Past illness Narrative* Problem [...] of this encounter (statuses as of 12/22/2021) [facility] of Past illness Narrative* Problem [...] of this encounter (statuses as of 01/05/2022) [facility] of Past illness Narrative* Problem [...] of this encounter (statuses as of 01/20/2022) [facility] Narrative* Problem [...] of this encounter (statuses as of 03/08/2022) [facility] Narrative* Problem [...] of this encounter (statuses as of 03/09/2022) [facility] Narrative* Problem [...] of this encounter (statuses as of 03/16/2022) [facility] Narrative* Problem [...] of this encounter (statuses as of 04/12/2022) [place] [address] History of Past illness Narrative* Problem Noted [...] of this encounter (statuses as of 04/20/2022) [facility] Narrative* Problem [...] of this encounter (statuses as of 05/07/2022) [facility] Narrative* Problem [...] of this encounter (statuses as of 05/11/2022) [facility] Narrative* Problem [...] of this encounter (statuses as of 05/13/2022) [facility] Narrative* Problem [...] of this encounter (statuses as of 05/26/2022) [facility] Narrative* Problem [...] of this encounter (statuses as of 05/31/2022) [facility] Narrative* Problem [...] of this encounter (statuses as of 06/01/2022) [facility] Narrative* Problem [...] of this encounter (statuses as of 07/18/2022) [facility] Narrative* Problem [...] of this encounter (statuses as of 08/11/2022) [facility] Narrative* Problem [...] of this encounter (statuses as of 09/09/2022) [facility] Narrative* Problem [...] of this encounter (statuses as of 09/09/2022) [facility] Narrative* Problem [...] of this encounter (statuses as of 09/17/2022) [facility] Narrative* Problem [...] of this encounter (statuses as of 12/01/2022) [facility] Narrative* Problem [...] of this encounter (statuses as of 12/02/2022) [facility] Narrative* Problem [...] of this encounter (statuses as of 01/11/2023) [facility] Narrative* Problem [...] of this encounter (statuses as of 02/09/2023) [facility] Narrative* Problem [...] of this encounter (statuses as of 02/14/2023) [facility] Narrative* Problem [...] of this encounter (statuses as of 02/14/2023) [facility] Narrative* Problem [...] of this encounter (statuses as of 02/16/2023) [facility] Narrative* Problem [...] of this encounter (statuses as of 03/07/2023) [facility]arrative* Problem [...] of this encounter (statuses as of 03/07/2023) [facility]arrative* Problem [...] of this encounter (statuses as of 03/08/2023) [facility] Narrative* Problem [...] of this encounter (statuses as of 03/14/2023) [facility]arrative* Problem [...] of this encounter (statuses as of 03/19/2023) [facility]* Problem [...] of this encounter (statuses as of 04/01/2023) [facility]* Problem [...] of this encounter (statuses as of 04/11/2023) [facility]* Problem [...] of this encounter (statuses as of 04/26/2023) [facility]* Problem [...] of this encounter (statuses as of 04/26/2023) [facility]* Problem [...] of this encounter (statuses as of 05/01/2023) [facility]* Problem [...] of this encounter (statuses as of 05/01/2023) [facility]* Problem [...] of this encounter (statuses as of 05/01/2023) [facility]* Problem [...] of this encounter (statuses as of 05/03/2023) [facility]* Problem [...] of this encounter (statuses as of 05/05/2023) [facility]* Problem [...] of this encounter (statuses as of 05/12/2023) [facility]* Problem [...] of this encounter (statuses as of 05/12/2023) [facility]* Problem [...] of this encounter (statuses as of 05/12/2023) [facility]* Problem [...] of this encounter (statuses as of 05/13/2023) [facility]* Problem [...] of this encounter (statuses as of 05/13/2023) [facility]* Problem [...] of this encounter (statuses as of 05/16/2023) [facility]* Problem [...] of this encounter (statuses as of 05/26/2023) [facility]* Problem [...] of this encounter (statuses as of 06/17/2023) [facility]* Problem [...] of this encounter (statuses as of 08/01/2023) [facility]* Problem [...] of this encounter (statuses as of 08/02/2023) [facility] Problem [...] of this encounter (statuses as of 08/05/2023) [facility] Problem [...] of this encounter (statuses as of 08/09/2023) [facility]* Problem [...] of this encounter (statuses as of 08/10/2023) [facility]* Problem [...] of this encounter (statuses as of 08/11/2023) [facility] Problem [...] of this encounter (statuses as of 08/11/2023) [facility] Problem [...] of this encounter (statuses as of 08/12/2023) [facility] Problem [...] of this encounter (statuses as of 08/18/2023) [facility]* Problem [...] of this encounter (statuses as of 08/23/2023) [facility]* Problem [...] of this encounter (statuses as of 09/01/2023) [facility]* Problem [...] of this encounter (statuses as of 09/02/2023) [facility] Problem [...] of this encounter (statuses as of 09/05/2023) [facility]* Problem [...] of this encounter (statuses as of 09/05/2023) [facility]* Problem [...] of this encounter (statuses as of 09/09/2023) [facility]* Problem [...] of this encounter (statuses as of 09/13/2023) [facility] Problem [...] of this encounter (statuses as of 09/16/2023) [facility]* Problem [...] of this encounter (statuses as of 09/16/2023) [facility] Problem [...] of this encounter (statuses as of 09/19/2023) [facility]* Problem [...] of this encounter (statuses as of 09/27/2023) [facility] Problem [...] of this encounter (statuses as of 09/27/2023) [facility] Problem [...] of this encounter (statuses as of 10/03/2023) [facility] Problem [...] of this encounter (statuses as of 10/04/2023) [facility] Problem [...] of this encounter (statuses as of 10/11/2023) [facility]* Problem [...] of this encounter (statuses as of 10/12/2023) [facility]ative* Problem [...] of this encounter (statuses as of 10/14/2023) [facility] No data available for this section [facility] Evaluation note* Diagnosis Jaw pain- Primary History of tooth extraction, unspecified edentulism class documented in this encounter [facility] Work Phone: Evaluation note* Diagnosis Procedure not carried out- Primary Procedure not carried out for other reasons documented in this encounter [facility] note* Diagnosis Viral illness- Primary Unspecified viral infection, in conditions classified elsewhere and of unspecified site documented in this encounter [facility] note* Diagnosis Encounter for screening mammogram for breast cancer documented in this encounter [facility] note* Diagnosis Encounter for long-term current use of medication- Primary Insomnia, unspecified type [facility]* Diagnosis Splinter of finger- Primary [facility] Diagnosis Insomnia, unspecified type documented in this encounter [facility] note* Diagnosis Insomnia, unspecified type- Primary Encounter for immunization Need for other specified prophylactic vaccination against single bacterial disease Screening for cervical cancer Screening for malignant neoplasm of the cervix Breast pain Mastodynia Mass of lower inner quadrant of right breast Chronic right shoulder pain Pain in joint, shoulder region Encounter for well woman exam with routine gynecological exam documented [facility] Diagnosis Breast pain- Primary Mastodynia Mass of lower inner quadrant of right breast Encounter for screening mammogram for breast cancer [facility]* Diagnosis Mass of right breast, unspecified quadrant- Primary Mass of right breast, unspecified quadrant documented [facility] this [facility] Diagnosis Mass of right breast, unspecified quadrant [facility]* Diagnosis Mass of right breast, unspecified quadrant- Primary [facility] Diagnosis Abnormal finding on radiological examination of breast- Primary Other (abnormal) findings on radiological examination of breast [facility]* Diagnosis Sore throat- Primary Acute pharyngitis URI, acute Acute upper respiratory infections of unspecified site [facility]* Diagnosis Viral URI with cough- Primary Acute upper respiratory infections of unspecified site [facility]* Diagnosis Panic attacks Panic 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 [facility]* Diagnosis Coccydynia- Primary Other disorder of coccyx [facility] Diagnosis Panic attacks Panic 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 [facility]* Diagnosis Tear of right glenoid labrum, subsequent encounter- Primary Chronic right shoulder pain Pain in joint, shoulder region documented [facility]* Diagnosis Panic attacks Panic 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 [facility]* Diagnosis Encounter for screening mammogram for breast cancer documented [facility]* Diagnosis Tear of right glenoid labrum, subsequent encounter Chronic right shoulder pain Pain in joint, shoulder region [facility] Diagnosis Tear of right glenoid [...] joint, shoulder region [facility]* Diagnosis Biceps tendinitis of right upper extremity- Primary [facility] Diagnosis Bicipital tendinitis of right shoulder- Primary Bicipital tenosynovitis Bicipital tendinitis of right shoulder Bicipital tenosynovitis [facility] Diagnosis Acute cough- Primary Viral bronchitis Acute bronchitis Bicipital tendinitis of right shoulder Bicipital tenosynovitis [facility]* Diagnosis Pre-op exam Preoperative examination, unspecified Bicipital tendonitis of right shoulder H/O chronic hepatitis Personal history of other diseases of digestive system Tobacco use disorder Marijuana use Cannabis abuse, unspecified Other migraine without status migrainosus, not intractable Congestive heart failure, unspecified HF chronicity, unspecified heart failure type (HCC) Bicipital tendinitis of right shoulder Bicipital tenosynovitis [facility]* Diagnosis S/P shoulder surgery- Primary Other postprocedural status Tear of right glenoid labrum, subsequent encounter Chronic right shoulder pain Pain in joint, shoulder region documented [facility]* Diagnosis S/P shoulder surgery- Primary Other postprocedural status Tear of right glenoid labrum, subsequent encounter [facility]* Diagnosis Bicipital tendinitis of right shoulder- Primary Bicipital tenosynovitis [facility]* Diagnosis S/P shoulder surgery- Primary Other postprocedural status [facility] Diagnosis Post-op pain- Primary Other acute postoperative pain Tear of right glenoid labrum, subsequent encounter S/P shoulder surgery Other postprocedural status [facility]* Diagnosis S/P right rotator cuff repair- Primary [facility]* Diagnosis Post-op pain Other acute postoperative pain Tear of right glenoid labrum, subsequent encounter S/P shoulder surgery Other postprocedural status [facility] Diagnosis Bicipital tendinitis of right [...] acute postoperative pain [facility]* Diagnosis Post-op pain Other acute postoperative pain Chronic right shoulder pain Pain in joint, shoulder region Tear of right glenoid labrum, subsequent encounter S/P shoulder surgery Other postprocedural status [facility] Diagnosis Post-op pain Other acute postoperative pain Chronic right shoulder pain Pain in joint, shoulder region Tear of right glenoid labrum, subsequent encounter S/P shoulder surgery Other postprocedural status [facility]* Diagnosis Panic attacks Panic 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 Post-op pain Other acute postoperative pain Chronic right shoulder pain Pain in joint, shoulder region Tear of right glenoid labrum, subsequent encounter S/P shoulder surgery Other postprocedural status [facility] Diagnosis Post-op pain Other acute postoperative pain Chronic right shoulder pain Pain in joint, shoulder region Tear of right glenoid labrum, subsequent encounter S/P shoulder surgery Other postprocedural status [facility] Diagnosis Chronic right shoulder pain- Primary Pain in joint, shoulder region S/P shoulder surgery Other postprocedural status Bursitis of right shoulder Disorders of bursae and tendons in shoulder region, unspecified Post-op pain Other acute postoperative pain Tear of right glenoid labrum, subsequent encounter [facility] Diagnosis Chronic right shoulder pain Pain in joint, shoulder region S/P shoulder surgery Other postprocedural status Post-op pain Other acute postoperative pain Tear of right glenoid labrum, subsequent encounter [facility]* Diagnosis Chronic right shoulder pain Pain in joint, shoulder region S/P shoulder surgery Other postprocedural status Post-op pain Other acute postoperative pain Tear of right glenoid labrum, subsequent encounter [facility]* Diagnosis Chronic right shoulder pain- Primary Pain in joint, shoulder region S/P shoulder surgery Other postprocedural status Post-op pain Other acute postoperative pain [facility]* Diagnosis Encounter for screening mammogram for breast cancer [facility]* Diagnosis Chronic right shoulder pain Pain in joint, shoulder region S/P shoulder surgery Other postprocedural status Post-op pain Other acute postoperative pain Tear of right glenoid labrum, subsequent encounter [facility]* Diagnosis Chronic right shoulder pain- Primary Pain in joint, shoulder region Tear of right glenoid labrum, sequela Traumatic tear of right rotator cuff, unspecified tear extent, sequela S/P shoulder surgery Other postprocedural status Post-op pain Other acute postoperative pain documented [facility]* Diagnosis Chronic right shoulder pain Pain in joint, shoulder region S/P shoulder surgery Other postprocedural status Post-op pain Other acute postoperative pain Tear of right glenoid labrum, subsequent encounter [facility]* Diagnosis Pre-op exam Preoperative [...] labrum, subsequent encounter documented [facility]* Diagnosis Pre-op exam Preoperative examination, unspecified Bicipital tendonitis of right shoulder H/O chronic hepatitis Personal history of other diseases of digestive system Tobacco use disorder Marijuana use Cannabis abuse, unspecified Other migraine without status migrainosus, not intractable Congestive heart failure, unspecified HF chronicity, unspecified heart failure type (HCC) Thrush- Primary Candidiasis of mouth documented [facility]* Diagnosis Pre-op exam Preoperative examination, [...] pain, unspecified chronicity documented [facility]* Diagnosis Pre-op exam Preoperative examination, [...] therapeutic drug monitoring documented [facility] this [facility]* Diagnosis Pre-op exam Preoperative examination, [...] bronchitis Acute cough documented [facility]* Diagnosis Pre-op exam Preoperative examination, unspecified Bicipital tendonitis of right shoulder H/O chronic hepatitis Personal history of other diseases of digestive system Tobacco use disorder Marijuana use Cannabis abuse, unspecified Other migraine without status migrainosus, not intractable Congestive heart failure, unspecified HF chronicity, unspecified heart failure type (HCC) Viral bronchitis Acute bronchitis Acute cough [facility]* Diagnosis Acute cough Pre-op exam Preoperative examination, unspecified Bicipital tendonitis of right shoulder H/O chronic hepatitis Personal history of other diseases of digestive system Tobacco use disorder Marijuana use Cannabis abuse, unspecified Other migraine without status migrainosus, not intractable Congestive heart failure, unspecified HF chronicity, unspecified heart failure type (HCC) documented [facility]* Diagnosis Fever, unspecified fever cause documented [facility] this encounter [facility]* Diagnosis Coccydynia Other disorder of coccyx documented [facility]* Diagnosis Splinter of finger [facility]* Diagnosis Pre-op exam Preoperative examination, [...] Other anxiety states [facility] Diagnosis Cough [facility] Diagnosis Pre-op exam Preoperative examination, [...] shoulder region, unspecified [facility]* Diagnosis Pre-op exam Preoperative examination, [...] 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 [facility]* Diagnosis Pre-op exam Preoperative examination, unspecified Bicipital tendonitis of right shoulder H/O chronic hepatitis Personal history of other diseases of digestive system Tobacco use disorder Marijuana use Cannabis abuse, unspecified Other migraine without status migrainosus, not intractable Congestive heart failure, unspecified HF chronicity, unspecified heart failure type (HCC) Finger pain, right- Primary Pain in limb [facility]* Diagnosis Pre-op exam Preoperative examination, [...] 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 [facility]* Diagnosis Pre-op exam Preoperative examination, [...] shoulder region, unspecified documented [facility]* Diagnosis Pre-op exam Preoperative examination, [...] abuse, subsequent encounter documented [facility] this [facility]* Diagnosis Pre-op exam Preoperative examination, [...] left upper extremity documented [facility]* Diagnosis Pre-op exam Preoperative examination, unspecified Bicipital tendonitis of right shoulder H/O chronic hepatitis Personal history of other diseases of digestive system Tobacco use disorder Marijuana use Cannabis abuse, unspecified Other migraine without status migrainosus, not intractable Congestive heart failure, unspecified HF chronicity, unspecified heart failure type (HCC) Rash- Primary Rash and other nonspecific skin eruption [facility]* Diagnosis Pre-op exam Preoperative examination, [...] left upper extremity documented [facility]* Diagnosis Pre-op exam Preoperative examination, [...] finger, initial encounter documented [facility] this [facility]* Diagnosis Pre-op exam Preoperative examination, unspecified Bicipital tendonitis of right shoulder H/O chronic hepatitis Personal history of other diseases of digestive system Tobacco use disorder Marijuana use Cannabis abuse, unspecified Other migraine without status migrainosus, not intractable Congestive heart failure, unspecified HF chronicity, unspecified heart failure type (HCC) Pain of right hand- Primary Pain in limb documented [facility]* Diagnosis Pre-op exam Preoperative examination, unspecified Bicipital tendonitis of right shoulder H/O chronic hepatitis Personal history of other diseases of digestive system Tobacco use disorder Marijuana use Cannabis abuse, unspecified Other migraine without status migrainosus, not intractable Congestive heart failure, unspecified HF chronicity, unspecified heart failure type (HCC) Pain of right hand Pain in limb documented [facility]* Diagnosis Pre-op exam Preoperative examination, [...] shoulder region, unspecified [facility] Diagnosis Pre-op exam Preoperative examination, [...] shoulder region, unspecified documented in this encounter [facility] note* Diagnosis Pre-op exam Preoperative examination, [...] pain, unspecified chronicity documented in this encounter [facility] note* Diagnosis Pre-op exam Preoperative examination, [...] shoulder region, unspecified documented in this encounter [facility] note* Diagnosis Pre-op exam Preoperative examination, [...] shoulder region, unspecified documented in this encounter [facility] note* Diagnosis Pre-op exam Preoperative examination, unspecified Bicipital tendonitis of right shoulder H/O chronic hepatitis Personal history of other diseases of digestive system Tobacco use disorder Marijuana use Cannabis abuse, unspecified Other migraine without status migrainosus, not intractable Congestive heart failure, unspecified HF chronicity, unspecified heart failure type (HCC) Insomnia, unspecified type [facility]* Diagnosis Pre-op exam Preoperative examination, [...] female climacteric states [facility] Diagnosis Pre-op exam Preoperative examination, unspecified [...] shoulder region, unspecified documented in this encounter [facility] note* Diagnosis Pre-op exam Preoperative examination, unspecified Bicipital tendonitis of right shoulder H/O chronic hepatitis Personal history of other diseases of digestive system Tobacco use disorder Marijuana use Cannabis abuse, unspecified Other migraine without status migrainosus, not intractable Congestive heart failure, unspecified HF chronicity, unspecified heart failure type (HCC) Encounter for screening mammogram for breast cancer [facility]* Diagnosis Pre-op exam Preoperative examination, [...] left upper extremity documented [facility]* Diagnosis Pre-op exam Preoperative examination, [...] shoulder region, unspecified [facility] Diagnosis Pre-op exam Preoperative examination, [...] Other anxiety states documented [facility]* Diagnosis Pre-op exam Preoperative examination, [...] rotator cuff repair [facility] Diagnosis Pre-op exam Preoperative examination, [...] shoulder region, unspecified [facility] Diagnosis Pre-op exam Preoperative examination, [...] of patient's decision [facility] Diagnosis Pre-op exam Preoperative examination, [...] shoulder region, unspecified [facility] Diagnosis Pre-op exam Preoperative examination, [...] shoulder region, unspecified [facility]* Diagnosis Pre-op exam Preoperative examination, [...] rotator cuff repair [facility]* Diagnosis Pre-op exam Preoperative examination, [...] Other postprocedural status documented [facility]* Diagnosis Pre-op exam Preoperative [...] region and thigh documented [facility] this encounter [facility]* Diagnosis Pre-op exam Preoperative [...] pain, unspecified chronicity documented in this encounter [facility] note* Diagnosis Pre-op exam Preoperative examination, [...] * Assessment & Plan Note - Sharmin Quinteros, [facility] - 09/28/2024 9:44 AM EDT Associated Problem(s): [...] * Assessment & Plan Note - Sharmin Quniteros APRN.CNP - 09/28/2024 9:43 AM EDT Associated [...] rx as needed [facility] Diagnosis Pre-op exam Preoperative examination, [...] pain, unspecified chronicity documented in this encounter [facility] note* Diagnosis Pre-op exam Preoperative examination, [...] pain, unspecified chronicity [facility] Diagnosis Pre-op exam Preoperative examination, unspecified [...] pain, unspecified chronicity documented [facility]* Diagnosis Pre-op exam Preoperative examination, [...] Other postprocedural status documented in this encounter [facility] note* Diagnosis Pre-op exam Preoperative examination, [...] shoulder region, unspecified documented in this encounter [facility] note* Diagnosis Pre-op exam Preoperative examination, [...] Other postprocedural status documented [facility] this [facility]* Diagnosis Pre-op exam Preoperative [...] Other postprocedural status documented in this encounter [facility]* Diagnosis Pre-op exam Preoperative [...] Other postprocedural status documented in this encounter [facility]* Diagnosis Pre-op exam Preoperative [...] 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 documented in this encounter [facility]* Diagnosis Pre-op exam Preoperative [...] extent, subsequent encounter documented in this encounter [facility] note* Diagnosis Pre-op exam Preoperative examination, [...] accident, initial encounter documented in this encounter [facility]* Diagnosis Pre-op exam Preoperative [...] extent, subsequent encounter documented in this encounter [facility] note* Diagnosis Pre-op exam Preoperative examination, [...] Other postprocedural status documented in this encounter [facility] note* Diagnosis Pre-op exam Preoperative examination, [...] of right shoulder documented in this encounter [facility] note* Diagnosis Pre-op exam Preoperative examination, [...] membrane, left ear documented in this encounter [facility]* Diagnosis Pre-op exam Preoperative [...] of right shoulder documented in this encounter [facility]* Diagnosis Pre-op exam Preoperative [...] Other postprocedural status [facility]* Diagnosis Pre-op exam Preoperative examination, [...] pain, unspecified chronicity documented [facility] this [facility]* Diagnosis Pre-op exam Preoperative examination, [...] Anxiety state, unspecified documented in this encounter [facility]* Diagnosis Pre-op exam Preoperative [...] Other postprocedural status documented in this encounter [facility] note* Diagnosis Pre-op exam Preoperative examination, [...] Anxiety state, unspecified documented in this [facility]* Diagnosis Pre-op exam Preoperative [...] Anxiety state, unspecified documented in this [facility]* Diagnosis Pre-op exam Preoperative [...] depression type Marijuana use Cannabis abuse, unspecified Anxiety- Primary Anxiety state, unspecified Generalized anxiety disorder Attention deficit disorder (ADD) in adult Opioid dependence, in remission (HCC) Traumatic tear of right rotator cuff, unspecified tear extent, sequela Tear of right glenoid labrum, sequela S/P shoulder surgery Other postprocedural status [facility] Diagnosis Pre-op exam Preoperative examination, [...] repair- Primary Right shoulder pain, unspecified chronicity Bicipital tendinitis of right shoulder Bicipital tenosynovitis documented [facility]* Diagnosis Pre-op exam Preoperative examination, [...] pain, unspecified chronicity documented [facility]* Diagnosis Pre-op exam Preoperative examination, [...] depression type Marijuana use Cannabis abuse, unspecified Sore throat- Primary Acute pharyngitis Generalized abdominal pain Abdominal pain, generalized Rash Rash and other nonspecific skin eruption [facility]* Diagnosis Pre-op exam Preoperative examination, [...] depression type Marijuana use Cannabis abuse, unspecified Pelvic pain in female- Primary Unspecified symptom associated with female genital organs Perimenopause Symptomatic menopausal or female climacteric states [facility] Diagnosis Pre-op exam Preoperative [...] unspecified S/P right rotator cuff repair- Primary documented in this encounter [facility] note* Diagnosis Pre-op exam Preoperative examination, [...] Cannabis abuse, unspecified Anxiety Anxiety state, unspecified Attention deficit disorder (ADD) in adult documented in this encounter [facility] note* Diagnosis Pre-op exam Preoperative examination, [...] Cannabis abuse, unspecified Anxiety Anxiety state, unspecified Attention deficit disorder (ADD) in adult [facility] Diagnosis Pre-op exam Preoperative examination, [...] depression type Marijuana use Cannabis abuse, unspecified Pelvic pain in female- Primary Unspecified symptom associated with female genital organs Deep dyspareunia Adenomyosis Endometriosis of uterus documented in this encounter [facility] note* Diagnosis Pre-op exam Preoperative examination, [...] Anxiety state, unspecified [facility] Diagnosis Pre-op exam Preoperative examination, [...] depression type Marijuana use Cannabis abuse, unspecified Post endometrial ablation syndrome- Primary Pelvic pain in female Unspecified symptom associated with female genital organs Adenomyosis Endometriosis of uterus Deep dyspareunia * Assessment & Plan Note - Stephy Simpson MD - 03/07/2025 1:52 PM EDT Associated Problem(s): Pelvic pain in female d/w her not likely due to physiological cysts * Assessment & Plan Note - Stephy Simpson MD - 03/07/2025 1:46 PM EDT Associated Problem(s): Post endometrial ablation syndrome * Assessment & Plan Note - Stephy Simpson MD - 03/07/2025 1:46 PM EDT Associated Problem(s): Adenomyosis * Assessment & Plan Note - Stephy Simpson MD - 03/07/2025 1:46 PM EDT Associated Problem(s): Deep dyspareunia [facility] Diagnosis Pre-op exam Preoperative examination, [...] Cannabis abuse, unspecified Anxiety Anxiety state, unspecified Post endometrial ablation syndrome- Primary Pelvic pain in female Unspecified symptom associated with female genital organs Adenomyosis Endometriosis of uterus Deep dyspareunia [facility] Attachments The following attachments cannot be sent through Care Everywhere. * Dental Surgery: Generic: Post-op ([place]izen [place]) [facility]: Hospital Discharge instructions No data available for this section [facility] Progress note No data available for this section [facility] Reason for referral (narrative)* Diagnostic Procedure Only (Routine) - Pending Review Specialty Diagnoses / Procedures Referred By Charity t Referred To Contact [facility] Diagnoses Encounter for screening mammogram for breast cancer Procedures KEYON SCREENING SCREENING MAMMOGRAPHY BI 2-VIEW BREAST INC CAD Maile Norman MD [address] [place] [address] [facility] [address] [place] [address] Referral ID Status Reason Start Date Expiration Date Visits Requested Visits Authorized [id number] Pending Review Auto-Generat ed Referral 03/03/2022 04/02/2023 1 1 [facility] for referral (narrative)* Diagnostic Procedure Only (Routine) - Authorized Specialty Diagnoses / Procedures Referred By Charity t Referred To Contact [facility] Diagnoses Breast pain Mass of lower inner quadrant of right breast Procedures US BREAST LTD RT US BREAST UNI REAL TIME WITH IMAGE LIMITED Karen Mckee APRN.DRIER TENDER NAPHTHALENE [address] [place] [address] [facility] [address] [place] [address] Referral ID Status Reason Start Date Expiration Date Visits Requested Visits Authorized [id number] Authorized Auto-Generat ed Referral 2 06/06/2023 1 1 * Consult, Test, Treat (Routine) - Authorized Specialty Diagnoses / Procedures Referred By Charity t Referred To Contact Diagnoses Encounter for well woman exam with routine gynecological exam Procedures CONSULT TO QUALITY ASSURANCE ASSESSOR OFFICE/OUTPATIENT [facility] MDM 60-74 MINUTES Karen Mckee APRN.DRIER TENDER NAPHTHALENE [address] [place] [address] Referral ID Status Reason Start Date Expiration Date Visits Requested Visits Authorized [id number] Authorized PCP Requested Referral Auto-Generate d Referral 2 05/07/2023 1 1 * Diagnostic Procedure Only (Routine) - Authorized Specialty Diagnoses / Procedures Referred By Charity t Referred To Contact [facility] Diagnoses Breast pain Mass of lower inner quadrant of right breast Procedures KEYON DIAGNOSTIC RT DIAGNOSTIC MAMMOGRAPHY COMPUTER-AIDED DETCJ UNI Karen Mckee APRN.DRIER TENDER NAPHTHALENE [address] [place] [address] [facility] [address] [place] [address] Referral ID Status Reason Start Date Expiration Date Visits Requested Visits Authorized [id number] Authorized Auto-Generat ed Referral 2 06/06/2023 1 1 * Physical Therapy (Routine) - Pending Review Specialty Diagnoses / Procedures Referred By Contac t Referred To Contact [facility] Diagnoses Chronic right shoulder pain Procedures CONSULT TO PHYSICAL THERAPY PHYSICAL THERAPY EVALUATION HIGH COMPLEX 45 MINS Karen Mckee APRN.DRIER TENDER NAPHTHALENE [address] [place] [address] [facility] [place] [address] [place] [address] Referral ID Status Reason Start Date Expiration Date Visits Requested Visits Authorized [id number] Pending Review Auto-Generat ed Referral 2 05/07/2023 1 1 * Consult, Test, Treat (Routine) - Authorized Specialty Diagnoses / Procedures Referred By Contac t Referred To Contact Orthopedics Diagnoses Chronic right shoulder pain Procedures CONSULT TO ORTHOPAEDICS OFFICE/OUTPATIENT [facility] 60-74 MINUTES Karen Mckee APRN.CNS [address] [place] [address] Referral ID Status Reason Start Date Expiration Date Visits Requested Visits Authorized [id number] Authorized PCP Requested Referral 2 05/07/2023 1 1 [facility] for referral (narrative)* Diagnostic Procedure Only (Routine) - Pending Review Specialty Diagnoses / Procedures Referred By Contac t Referred To Contact [facility] Diagnoses Breast pain Mass of lower inner quadrant of right breast Procedures KEYON DIAGNOSTIC BILAT DIAGNOSTIC MAMMOGRAPHY COMPUTER-AIDED DETCJ BI Sam Khan APRN.BLUEBERRY GROWER [address] [place] [address] [facility] [address] [place] [address] Referral ID Status Reason Start Date Expiration Date Visits Requested Visits Authorized [id number] Pending Review Auto-Generat ed Referral 2 06/10/2023 1 1 [facility] for referral (narrative)* Diagnostic Procedure Only (Routine) - Pending Review Specialty Diagnoses / Procedures Referred By Charity menendez Referred To Contact [facility] IMAG[facility] Diagnoses Mass of right breast, unspecified quadrant Procedures US BIOPSY BREAST RT BX BREAST W/DEVICE 1ST LESION ULTRASOUND Kuldeep Hoffman MD [address] [place] [address] [facility] [address] [place] [address] Referral ID Status Reason Start Date Expiration Date Visits Requested Visits Authorized [id number] Pending Review Auto-Generat ed Referral 06/25/2023 1 1 [facility] for referral (narrative)* Diagnostic Procedure Only (Routine) - Pending Review Specialty Diagnoses / Procedures Referred By Charity menendez Referred To Contact [facility] Diagnoses Abnormal finding on radiological examination of breast Procedures US BREAST LTD RT US BREAST UNI REAL TIME WITH IMAGE LIMITED Heidi Marcelino MD [address] [place] [address] [facility] [address] [place], [place] [address] [address] Referral ID Status Reason Start Date Expiration Date Visits Requested Visits Authorized [id number] Pending Review Auto-Generat ed Referral 05/31/2022 06/30/2023 1 1 * Diagnostic Procedure Only (Routine) - Pending Review Specialty Diagnoses / Procedures Referred By Charity menendez Referred To Contact [facility] Diagnoses Abnormal finding on radiological examination of breast Procedures KEYON DIAGNOSTIC BILAT DIAGNOSTIC MAMMOGRAPHY COMPUTER-AIDED DETCJ BI Heidi Marcelino MD [address] [place] [address] [facility] [address] [place] [address] Referral ID Status Reason Start Date Expiration Date Visits Requested Visits Authorized [id number] Pending Review Auto-Generat ed Referral 05/31/2022 06/30/2023 1 1 [facility] for referral (narrative)* Diagnostic Procedure Only (Routine) - Closed Specialty Diagnoses / Procedures Referred By Charity menendez Referred To Contact XR IMAGING Diagnoses Coccydynia Procedures XR SACRUM/COCCYX 3V AP/LAT RADEX SACRUM & COCCYX MINIMUM 2 VIEWS Gayla Ayala APRN.CNP [address] [place] [address] X[facility] Imaging Referral ID Status Reason Start Date Expiration Date V isits Requested Visits Authorized [id number] Closed Auto-Generate d Referral 12/01/2022 12/31/2023 1 1 [facility] for referral (narrative)* Diagnostic Procedure Only (Routine) - Pending Review Specialty Diagnoses / Procedures Referred By Charity menendez Referred To Contact [facility] Diagnoses Encounter for screening mammogram for breast cancer Procedures KEYON SCREENING SCREENING MAMMOGRAPHY BI 2-VIEW BREAST INC Maile Garcia MD [address] [place] [address] [facility] [address] [place] [address] Referral ID Status Reason Start Date Expiration Date Visits Requested Visits Authorized [id number] Pending Review Auto-Generat ed Referral 02/09/2023 03/10/2024 1 1 [facility] for referral (narrative)* Diagnostic Procedure Only (Routine) - New Request Specialty Diagnoses / Procedures Referred By Charity menendez Referred To Contact [facility] Diagnoses Encounter for screening mammogram for breast cancer Procedures KEYON SCREENING W TERESITA SCREENING DIGITAL BREAST TOMOSYNTHESIS BI SCREENING MAMMOGRAPHY BI 2-VIEW BREAST INC Maile Garcia MD [address] [place] [address] [facility] [address] [place] [address] Referral ID Status Reason Start Date Expiration Date Visits Requested Visits Authorized [id number] New Request Auto-Generat ed Referral 01/11/2024 02/09/2025 1 1 [facility] for referral (narrative)* Diagnostic Procedure Only (Routine) - Closed Specialty Diagnoses / Procedures Referred By Contac t Referred To Contact XR IMAGING Diagnoses Coccydynia Procedures XR SACRUM/COCCYX 3V AP/LAT RADEX SACRUM & COCCYX MINIMUM 2 VIEWS Gayla Ayala OUTREACH NURSE.BLUEBERRY GROWER [address] [place] [address] [place] [address] Referral ID Status Reason Start Date Expiration Date V isits Requested Visits Authorized [id number] Closed Auto-Generate d Referral 12/01/2022 12/31/2023 1 1 [facility] for referral (narrative)* Diagnostic Procedure Only (Routine) - Closed Specialty Diagnoses / Procedures Referred By Contac t Referred To Contact XR IMAGING Diagnoses Splinter of finger Procedures XR DIGIT GENERAL 3V FRONTAL/LAT/OBL RIGHT RADEX FINGR MINIMUM 2 VIEWS Pennie Clemente, OUTREACH NURSE.BLUEBERRY GROWER [address] [place] [address] [place] [address] Referral ID Status Reason Start Date Expiration Date V isits Requested Visits Authorized [id number] Closed Auto-Generate d Referral 03/16/2022 04/15/2023 1 1 [facility] for referral (narrative)* Diagnostic Procedure Only (Urgent) - Closed Specialty Diagnoses / Procedures Referred By Contac t Referred To Contact XR IMAGING Diagnoses Injury of left upper extremity, subsequent encounter Mass of left upper extremity Procedures XR FOREARM GENERAL 2V AP/LAT LEFT RADEX FOREARM 2 VIEWS Karen Mckee, OUTREACH NURSE.DRIER TENDER NAPHTHALENE [address] [place] [address] [place] [address] Referral ID Status Reason Start Date Expiration Date V isits Requested Visits Authorized [id number] Closed Auto-Generate d Referral 05/10/2024 06/09/2025 1 1 [facility] for referral (narrative)* Diagnostic Procedure Only (Urgent) - New Request Specialty Diagnoses / Procedures Referred By Contac t Referred To Contact XR IMAGING Diagnoses Pain of right hand Procedures XR HAND GENERAL 3V PA/LAT/OBL RIGHT RADEX HAND MINIMUM 3 VIEWS Galo Bernal APRN.BLUEBERRY GROWER [address] [place] [address] [place] [address] Referral ID Status Reason Start Date Expiration Date Visits Requested Visits Authorized [id number] New Request Auto-Generat ed Referral 06/22/2025 1 1 [facility] for referral (narrative)* Diagnostic Procedure Only (Urgent) - Closed Specialty Diagnoses / Procedures Referred By Contac t Referred To Contact XR IMAGING Diagnoses Pain of right hand Procedures XR HAND GENERAL 3V PA/LAT/OBL RIGHT RADEX HAND MINIMUM 3 VIEWS Galo Bernal APRN.BLUEBERRY GROWER [address] [place] [address] [place] [address] Referral ID Status Reason Start Date Expiration Date V isits Requested Visits Authorized [id number] Closed Auto-Generate d Referral 05/23/2024 06/22/2025 1 1 [facility] for referral (narrative)* Diagnostic Procedure Only (Routine) - New Request Specialty Diagnoses / Procedures Referred By Contac t Referred To Contact [facility] IM[facility] Diagnoses Encounter for screening mammogram for breast cancer Procedures KEYON SCREENING W TERESITA SCREENING DIGITAL BREAST TOMOSYNTHESIS BI SCREENING MAMMOGRAPHY BI 2-VIEW BREAST INC CAD Cecile Patricia OUTREACH NURSE.BLUEBERRY GROWER [address] [place] [address] [facility] [address] [place] [address] Referral ID Status Reason Start Date Expiration Date Visits Requested Visits Authorized [id number] New Request Auto-Generat ed Referral 07/09/2024 08/08/2025 1 1 [facility] for visit Narrative* Diagnostic Procedure Only (Routine) - Closed Specialty Diagnoses / Procedures Referred By Contac t Referred To Contact XR IMAGING Diagnoses Coccydynia Procedures XR SACRUM/COCCYX 3V AP/LAT RADEX SACRUM & COCCYX MINIMUM 2 VIEWS Gayla Ayala OUTREACH NURSE.BLUEBERRY GROWER [address] [place] [address] [place] [address] Referral ID Status Reason Start Date Expiration Date V isits Requested Visits Authorized [id number] Closed Auto-Generate d Referral 12/01/2022 12/31/2023 1 1 [facility] for visit Narrative* Diagnostic Procedure Only (Routine) - Closed Specialty Diagnoses / Procedures Referred By Contac t Referred To Contact XR IMAGING Diagnoses Splinter of finger Procedures XR DIGIT GENERAL 3V FRONTAL/LAT/OBL RIGHT RADEX FINGR MINIMUM 2 VIEWS Pennie Clemente, OUTREACH NURSE.BLUEBERRY GROWER [address] [place] [address] [place] [address] Referral ID Status Reason Start Date Expiration Date V isits Requested Visits Authorized [id number] Closed Auto-Generate d Referral 03/16/2022 04/15/2023 1 1 [facility] for visit Narrative* Diagnostic Procedure Only (Urgent) - Closed Specialty Diagnoses / Procedures Referred By Contac t Referred To Contact XR IMAGING Diagnoses Injury of left upper extremity, subsequent encounter Mass of left upper extremity Procedures XR FOREARM GENERAL 2V AP/LAT LEFT RADEX FOREARM 2 VIEWS Karen Mckee, OUTREACH NURSE.DRIER TENDER NAPHTHALENE [address] [place] [address] [place] [address] Referral ID Status Reason Start Date Expiration Date V isits Requested Visits Authorized [id number] Closed Auto-Generate d Referral 05/10/2024 06/09/2025 1 1 [facility] for visit Narrative* Diagnostic Procedure Only (Urgent) - Closed Specialty Diagnoses / Procedures Referred By Contac t Referred To Contact XR IMAGING Diagnoses Pain of right hand Procedures XR HAND GENERAL 3V PA/LAT/OBL RIGHT RADEX HAND MINIMUM 3 VIEWS Galo Bernal OUTREACH NURSE.BLUEBERRY GROWER [address] [place] [address] [place] [address] Referral ID Status Reason Start Date Expiration Date V isits Requested Visits Authorized [id number] Closed Auto-Generate d Referral 05/23/2024 06/22/2025 1 1 [facility] for visit Narrative* Diagnostic Procedure Only (Routine) - Closed Specialty Diagnoses / Procedures Referred By Contac t Referred To Contact XR IMAGING Diagnoses Right hip pain Procedures XR HIP BILATERAL 5V PEL/AP/LAT EACH HIP RADEX HIPS BILATERAL WITH PELVIS MINIMUM 5 VIEWS Sam Khan OUTREACH NURSE.BLUEBERRY GROWER [address] [place] [address] Phone: tel: fax: [place] [address] Referral ID Status Reason Start Date Expiration Date V isits Requested Visits Authorized [id number] Closed Auto-Generate d Referral 09/21/2024 10/21/2025 1 1 [facility] Summary Purpose Family History No Family History Records FoundNo Family History Records Found No data available for this section No data available for this section No data available for this section No data available for this section No data available for this section No Family History Records Found No data available for this section No Family History Records FoundNo Family History Records Found No data available for this section No data available for this section No Family History Records FoundNo Family History Records FoundNo Family History Records Found Advance Directives No Advanced Directives Records FoundDocuments on File Type Date Recorded Patient Jet Inspector Expl 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 Advance Directive(s) Advance Directive(s) 12/30/2018 3:43 PM Advance Directive(s) 10/19/2018 9:14 PM Advance Directive(s) 07/02/2018 4:59 PM Advance Directive(s) 01/30/2018 1:31 PM Advance Directive(s) 01/23/2018 6:09 PM Reason for Referral Specialty Diagnoses / Procedures Referred By Contac t Referred To Contact Orthopedics Diagnoses Splinter of finger Procedures CONSULT PANEL TO ORTHOPAEDICS OFFICE/OUTPATIENT [facility] 60-74 MINUTES Pennie Clemente, OUTREACH NURSE.BLUEBERRY GROWER [address] [place] [address] Referral ID Status Reason Start Date Expiration Date Visits Requested Visits Authorized [id number] Authorized PCP Requested Referral 03/16/2022 03/16/2023 1 1 Specialty Diagnoses / Procedures Referred By Contac t Referred To Contact XR IMAGING Diagnoses Splinter of finger Procedures XR DIGIT GENERAL 3V FRONTAL/LAT/OBL RIGHT RADEX FINGR MINIMUM 2 VIEWS Pennie Clemente, OUTREACH NURSE.BLUEBERRY GROWER [address] [place] [address] Xr Imaging Referral ID Status Reason Start Date Expiration Date V isits Requested Visits Authorized [id number] Closed Auto-Generate d Referral 03/16/2022 04/15/2023 1 1 Specialty Diagnoses / Procedures Referred By Contac t Referred To Contact General Surgery Diagnoses Mass of right breast, unspecified quadrant Procedures CONSULT TO GENERAL SURGERY OFFICE/OUTPATIENT [facility] 60-74 MINUTES Maile Norman MD [address] [place] [address] Referral ID Status Reason Start Date Expiration Date V isits Requested Visits Authorized [id number] Closed PCP Requested Referral 05/12/2022 05/12/2023 1 1 Specialty Diagnoses / Procedures Referred By Contac t Referred To Contact MR IMAGING Diagnoses Tear of right glenoid labrum, subsequent encounter Chronic right shoulder pain Procedures MRI SHOULDER WO/W IVCON RIGHT MRI ANY JT UPPER EXTREMITY W/O & W/CONTR MATRL Sam Khan, OUTREACH NURSE.BLUEBERRY GROWER [address] [place] [address] Mr Imaging Referral ID Status Reason Start Date Expiration Date Visits Requested Visits Authorized [id number] Pending Review Auto-Generat ed Referral 02/08/2023 03/09/2024 1 1 Specialty Diagnoses / Procedures Referred By Contac t Referred To Contact Pain Management Diagnoses Tear of right glenoid labrum, subsequent encounter Chronic right shoulder pain Procedures CONSULT TO PAIN MGT OFFICE/OUTPATIENT [facility] 60-74 MINUTES Sam Khan APRN.BLUEBERRY GROWER [address] [place] [address] Referral ID Status Reason Start Date Expiration Date Visits Requested Visits Authorized [id number] Authorized PCP Requested Referral 02/08/2023 02/08/2024 1 1 Specialty Diagnoses / Procedures Referred By Contac t Referred To Contact Orthopedics Diagnoses Tear of right glenoid labrum, subsequent encounter Chronic right shoulder pain Procedures CONSULT TO ORTHOPAEDICS OFFICE/OUTPATIENT [facility] 60-74 MINUTES Sam Khan APRN.BLUEBERRY GROWER [address] [place] [address] Referral ID Status Reason Start Date Expiration Date Visits Requested Visits Authorized [id number] Authorized PCP Requested Referral 04/24/2024 1 1 Specialty Diagnoses / Procedures Referred By Contac t Referred To Contact Gynecology Diagnoses Screening for cervical cancer Procedures CONSULT TO GYNECOLOGY OFFICE/OUTPATIENT [facility] 60-74 MINUTES Rick Anderson MD [address] [place], [place] [address] Referral ID Status Reason Start Date Expiration Date Visits Requested Visits Authorized [id number] Authorized PCP Requested Referral Auto-Generate d Referral 04/30/2023 04/29/2024 1 1 Specialty Diagnoses / Procedures Referred By Contac t Referred To Contact [facility] Diagnoses Tachycardia Procedures ECG COMPLETE ECG ROUTINE ECG W/LEAST 12 LDS W/I&R Rick Anderson MD [address] [place] [address] [facility] [place] [address] [place] [address] Referral ID Status Reason Start Date Expiration Date Visits Requested Visits Authorized [id number] Pending Review Auto-Generat ed Referral 04/30/2023 04/29/2024 1 1 Specialty Diagnoses / Procedures Referred By Contac t Referred To Contact MR IMAGING Diagnoses Tear of right glenoid labrum, subsequent encounter Chronic right shoulder pain Procedures MRI SHOULDER WO/W IVCON RIGHT MRI ANY JT UPPER EXTREMITY W/O & W/CONTR MATRL Sam Khan APRN.BLUEBERRY GROWER [address] [place] [address] [place] [address] Referral ID Status Reason Start Date Expiration Date V isits Requested Visits Authorized [id number] Closed Auto-Generate d Referral 02/25/2023 06/26/2023 1 1 Specialty Diagnoses / Procedures Referred By Contac t Referred To Contact Orthopedics Diagnoses Chronic right shoulder pain Labral tear of shoulder, degenerative, right Procedures CONSULT TO ORTHOPAEDICS OFFICE/OUTPATIENT [facility] 60-74 MINUTES PrebishCharles APRN.BLUEBERRY GROWER [address] [place] [address] Antonio Rios MD [address] [facility] [place] [address] Referral ID Status Reason Start Date Expiration Date Visits Requested Visits Authorized [id number] Authorized PCP Requested Referral 3 05/11/2024 1 1 Specialty Diagnoses / Procedures Referred By Contac t Referred To Contact Pain Management Diagnoses Coccydynia Procedures CONSULT TO PAIN MGT OFFICE/OUTPATIENT [facility] 60-74 MINUTES PodlogGayla carias APRN.BLUEBERRY GROWER [address] [place] [address] Referral ID Status Reason Start Date Expiration Date Visits Requested Visits Authorized [id number] Authorized PCP Requested Referral 12/07/2022 12/06/2023 1 1 Specialty Diagnoses / Procedures Referred By Contac t Referred To Contact [facility] Diagnoses S/P shoulder surgery Procedures CONSULT TO PHYSICAL THERAPY PHYSICAL THERAPY EVALUATION HIGH COMPLEX 45 MINS Laura Martin PA-C [address] [place] [address] [facility] [place] [address] [place] [address] Referral ID Status Reason Start Date Expiration Date Visits Requested Visits Authorized [id number] Pending Review Auto-Generat ed Referral 09/05/2023 09/04/2024 1 1 Specialty Diagnoses / Procedures Referred By Contac t Referred To Contact MR IMAGING Diagnoses S/P right rotator cuff repair Right shoulder pain, unspecified chronicity Procedures MRI SHOULDER WO IVCON RIGHT MRI ANY JT UPPER EXTREMITY W/O CONTRAST Louis Kaufman MD [address] [facility] [place] [address] [place] [address] Referral ID Status Reason Start Date Expiration Date Visits Requested Visits Authorized [id number] New Request Auto-Generat ed Referral 02/07/2024 03/08/2025 1 1 Specialty Diagnoses / Procedures Referred By Contac t Referred To Contact General Surgery Diagnoses Injury of left upper extremity, subsequent encounter Mass of left upper extremity Procedures CONSULT TO GENERAL SURGERY OFFICE/OUTPATIENT [facility] 60 MINUTES Karen Mckee, OUTREACH NURSE.DRIER TENDER NAPHTHALENE [address] [place] [address] Referral ID Status Reason Start Date Expiration Date Visits Requested Visits Authorized [id number] Authorized PCP Requested Referral 05/10/2025 1 1 Specialty Diagnoses / Procedures Referred By Contac t Referred To Contact XR IMAGING Diagnoses Injury of left upper extremity, subsequent encounter Mass of left upper extremity Procedures XR FOREARM GENERAL 2V AP/LAT LEFT RADEX FOREARM 2 VIEWS Karen Mckee, OUTREACH NURSE.DRIER TENDER NAPHTHALENE [address] [place] [address] [place] [address] Referral ID Status Reason Start Date Expiration Date V isits Requested Visits Authorized [id number] Closed Auto-Generate d Referral 05/10/2024 06/09/2025 1 1 Referral ID Status Reason Start Date Expiration Date V isits Requested Visits Authorized [id number] Closed Auto-Generate d Referral 06/06/2024 07/06/2024 1 [...] section and content) DATE CREATED AUTHOR 07/04/2018 [facility] DATE CREATED AUTHOR AUTHOR'S ORGANIZ ATION 12/15/2021 [facility] DATE CREATED AUTHOR AUTHOR'S ORGANIZ ATION 02/17/2024 [facility] ([place]) DATE CREATED AUTHOR AUTHOR'S ORGANIZ ATION 10/17/2024 [facility] DATE CREATED AUTHOR AUTHOR'S ORGANIZ ATION 01/07/2025 [facility] DATE CREATED AUTHOR AUTHOR'S ORGANIZ ATION 03/09/2025 [facility] DATE CREATED AUTHOR AUTHOR'S ORGANIZ ATION 03/11/2025 [facility] DATE CREATED AUTHOR AUTHOR'S ORGANIZ ATION 03/14/2025 [facility] Reason for Visit (unrecogniz ed section and content) Reason Comments Physical Therapy Specialty Diagnoses / Procedures Referred By Contac t Referred To Contact [facility] Diagnoses S/P right rotator cuff repair Right shoulder pain, unspecified chronicity Procedures CONSULT TO PHYSICAL THERAPY PHYSICAL THERAPY EVALUATION HIGH COMPLEX 45 MINS Laura Martin PA-C [address] [place] [address] Phone: tel: fax: [facility] [address] [place] [address] Referral ID Status Reason Start Date Expiration Date Visits Requested Visits Authorized [id number] Authorized Auto-Generat ed Referral 06/27/2024 06/26/2025 8 8 Reason Comments PT Progress Note Reason Comments PT Eval Specialty Diagnoses / Procedures Referred By Contac t Referred To Contact Physical Therapy / PHYSICAL THERAPY Diagnoses right shoulder post op Procedures NEW RS PT ORTH MSK Self Yodit Baker, PT Referral ID Status Reason Start Date Expiration Date V isits Requested Visits Authorized [id number] Authorized 06/27/2023 06/26/2024 30 30 Reason Comments Dental Pain Reason Comments ABO [...] Referred By Charity menendez Referred To Contact General Surgery Diagnoses Mass of right breast, unspecified quadrant Procedures CONSULT TO GENERAL SURGERY OFFICE/OUTPATIENT [facility] 60-74 MINUTES Maile Norman MD [address] [place] [address] Referral ID Status Reason Start Date Expiration Date V isits Requested Visits Authorized [id number] Closed PCP Requested Referral 05/12/2022 05/12/2023 1 [...] Request Reason Comments Acute Visit Area to [facility] ls abnormal x1 month Reason Comments Shoulder Injury of right shoulder an d requesting a MRI with contrast. This was a work related injury but due to paperwork issues the claim was closed. Has an trademark attorney trying to appeal the decision. Consult pain management for right shoulder injury until Claim can be approved. Sore Throat started [...] like a referral to ortho at [facility] to discuss options Reason Comments Medication Problem [...] UPPER EXTREMITY W/O & W/CONTR Sam Espinoza APRN.BLUEBERRY GROWER [address] [place] [address] [place] [address] Referral ID Status Reason Start Date Expiration Date V isits Requested Visits Authorized [id number] Closed Auto-Generate d Referral 02/25/2023 06/26/2023 1 1 Reason Comments Referral Information Reason Onset Date Comments Refill Request 05/12/2023 Reason Comments New Patient Right shoulder Pain - Labrial Tear - 01/03 Reason Onset Date Comments Refill Request 05/25/2023 Reason Comments Pain New Referred by Charles Oatesbicat Specialty Diagnoses / Procedures Referred By Charity menendez Referred To Contact Orthopedics Diagnoses Chronic right shoulder pain Labral tear of shoulder, degenerative, right Procedures CONSULT TO ORTHOPAEDICS OFFICE/OUTPATIENT NEW HIGH MDM 60-74 MINUTES Romy, RIGOBERTO Mendez.BLUEBERRY GROWER [address] [facility] [place] [place] [address] Antonio Rios MD [address] [facility] [facility] [address] Referral ID Status Reason Start Date Expiration Date V isits Requested Visits Authorized [id number] Closed PCP Requested Referral 05/12/2023 05/11/2024 1 [...] Pt requesting appt Reason Comments ER F/U [facility] 02/26/24 & 02/26 CT scan which showed possible pneumonia, WBC elevated, Right leg pain/swelling Reason Comments Patient Request Reason Comments ED Follow-up [facility] ER follow up fro m 03/18/24. Suture [...] wanted General Surgery consult f axed to [place] Reason Onset Date Comments Refill Request 06/08/2024 Specialty Diagnoses / Procedures Referred By Charity menendez Referred To Contact MR IMAGING Diagnoses S/P right rotator cuff repair Right shoulder pain, unspecified chronicity Procedures MRI SHOULDER WO IVCON RIGHT MRI ANY JT UPPER EXTREMITY W/O CONTRAST Louis Kaufman MD [address] [place] [address] Mr Imaging [facility] Referral ID Status Reason Start Date Expiration Date V isits Requested Visits Authorized [id number] Closed Auto-Generate d Referral 06/06/2024 07/06/2024 1 [...] results Procedures DENISE ESTABLISH Louis Valencia MD [address] [place] [address] Louis Valencia MD [address] [facility] [address] Referral ID Status Reason Start Date Expiration Date Visits Requested Visits Authorized [id number] New Request Financial Clearance Required - [employer] Payor 07/27/2024 10/25/2024 1 1 Reason Onset Date Comments Refill Request 08/03/2024 Reason Comments Pre-Op Exam Excision of cyst on left forearm with Dr. Cordova scheduled for 07/13/24 at [facility] Reason Comments Clinical Update Reason Onset Date [...] n out of car. Police Report # [id number] Reason Onset Date Comments Refill Request 12/10/2024 Reason Onset Date Comments Refill Request 12/21/2024 Reason Comments Anxiety Reason Comments bh consult Reason Comments No Show Missed #1 Reason Comments Sore Throat Rash on neck, ALEJANDRA, co ugh, vomiting blackish, dark green x 3 days Reason Onset Date Comments Refill Request 01/21/2025 Reason Onset Date Comments Refill Request 01/17/2025 Reason Comments Discussion ? hysterectomy Reason Comments Pelvic Pain Reason Onset Date Comments Refill Request 02/27/2025 Reason Comments Pre-Op Visit Ordered Prescriptions (unrec ognized section and content) [...] On 07/18/21 at 1840, For 1 dose 1842 (Given - Provid er: Shayla Nicole RN) [...] Care Teams (unrecognized sec tion and content) Auto Research Engineer Relationship Specialty Start Date End Date Maile Norman PCP - General 05/09/16 Auto Research Engineer Relationship Specialty Start Date End Date Maile Norman MD [address] [place] [address] PCP - General Internal Medicine 02/24/12 Auto Research Engineer Relationship Specialty Start Date End Date Maile Norman MD [facility] [place] [address] PCP - General Internal Medicine 02/24/12 Auto Research Engineer Relationship Specialty Start Date End Date Maile Norman MD [address] [place] [address], [place] [address] PCP - General Internal Medicine 02/24/12 Auto Research Engineer Relationship Specialty Start Date End Date Maile Norman MD [address] [place] [address], [place] [address] PCP - General Internal Medicine 02/24/12 Auto Research Engineer Relationship Specialty Start Date End Date Maile Norman MD [address] [place] [address], [place] [address] PCP - General Internal Medicine 02/24/12 Auto Research Engineer Relationship Specialty Start Date End Date Maile Norman MD [address] [place] [address], [place] [address] PCP - General Internal Medicine 02/24/12 Auto Research Engineer Relationship Specialty Start Date End Date Maile Norman MD [address] [place] [address], [place] [address] PCP - General Internal Medicine 02/24/12 Auto Research Engineer Relationship Specialty Start Date End Date Maile Norman MD [address] [place] [address], [place] [address] PCP - General Internal Medicine 02/24/12 Auto Research Engineer Relationship Specialty Start Date End Date Maile Norman MD [address] [place] [address] PCP - General Internal Medicine 02/24/12 Auto Research Engineer Relationship Specialty [place] [address] [place] [address] PCP - General Internal Medicine 02/24/12 Auto Research Engineer Relationship Specialty Start Date End Date Maile Norman MD [address] [place] [address] PCP - General Internal Medicine 02/24/12 Auto Research Engineer Relationship Specialty Start Date End Date Maile Norman MD [address] [place] [address] PCP - General Internal Medicine 02/24/12 Auto Research Engineer Relationship Specialty Start Date End Date Maile Norman MD [address] [place] [address] PCP - General Internal Medicine 02/24/12 Auto Research Engineer Relationship Specialty Start Date End Date Maile Norman MD [address] [place] [address] PCP - General Internal Medicine 02/24/12 Auto Research Engineer Relationship Specialty Start Date End Date Maile Norman MD [address] [place] [address] PCP - General Internal Medicine 02/24/12 Auto Research Engineer Relationship Specialty Start Date End Date Maile Norman MD [address] [place] [address] PCP - General Internal Medicine 02/24/12 Auto Research Engineer Relationship Specialty Start Date End Date Maile Norman MD [address] [place] [address] PCP - General Internal Medicine 02/24/12 Auto Research Engineer Relationship Specialty Start Date End Date Maile Norman MD [address] [place] [address] PCP - General Internal Medicine 02/24/12 Auto Research Engineer Relationship Specialty Start Date End Date Maile Norman MD [address] [place] [address] PCP - General Internal Medicine 02/24/12 Auto Research Engineer Relationship Specialty Start Date End Date Maile Norman MD [address] [place] [address] PCP - General Internal Medicine 02/24/12 Auto Research Engineer Relationship Specialty Start Date End Date Maile Norman MD [address] [place] [address] PCP - General Internal Medicine 02/24/12 Auto Research Engineer Relationship Specialty Start Date End Date Maile Norman MD [address] [place] [address] PCP - General Internal Medicine 02/24/12 Auto Research Engineer Relationship Specialty Start Date End Date Malie Norman MD [address] [place] [address] PCP - General Internal Medicine 02/24/12 Auto Research Engineer Relationship Specialty Start Date End Date Maile Norman MD [address] [place] [address] PCP - General Internal Medicine 02/24/12 Auto Research Engineer Relationship Specialty Start Date End Date Maile Norman MD [address] [place] [address] PCP - General Internal Medicine 02/24/12 Auto Research Engineer Relationship Specialty Start Date End Date Maile Norman MD [address] [place] [address] PCP - General Internal Medicine 02/24/12 Auto Research Engineer Relationship Specialty Start Date End Date Maile Norman MD [address] [place] [address] PCP - General Internal Medicine 02/24/12 Auto Research Engineer Relationship Specialty Start Date End Date Maile Norman MD [address] [place] [address] PCP - General Internal Medicine 02/24/12 Auto Research Engineer Relationship Specialty Start Date End Date Maile Norman MD [address] [place] [address] PCP - General Internal Medicine 02/24/12 Auto Research Engineer Relationship Specialty Start Date End Date Maile Norman MD [address] [place] [address] PCP - General Internal Medicine 02/24/12 Auto Research Engineer Relationship Specialty Start Date End Date Maile Norman MD [address] [place] [address] PCP - General Internal Medicine 02/24/12 Auto Research Engineer Relationship Specialty Start Date End Date Maile Norman MD [address] [place], [place] 070951 PCP - General Internal Medicine 02/24/12 Auto Research Engineer Relationship Specialty Start Date End Date Maile Norman MD [address] [place], [place] [address]1301 PCP - General Internal Medicine 02/24/12 Auto Research Engineer Relationship Specialty Start Date End Date Maile Norman MD [address] [place], [place] 056211 PCP - General Internal Medicine 02/24/12 Charles Stanton APRN.[employer]ERRY GROWER [address] [place] [address] Referring Pain Management 05/18/23 Auto Research Engineer Relationship Specialty Start Date End Date Maile Norman MD [address] [place], [place] 877871 PCP - General Internal Medicine 02/24/12 Charles Stanton APRN.BLUEBERRY GROWER [address] [place] [address] Referring Pain Management 05/18/23 Auto Research Engineer Relationship Specialty Start Date End Date Maile Norman MD [address] [place], [place] 000031 PCP - General Internal Medicine 02/24/12 Charles Stanton APRN.BLUEBERRY GROWER [address] [place] [address] Referring Pain Management 05/18/23 Auto Research Engineer Relationship Specialty Start Date End Date Maile Norman MD [address] [place], [place] 171801 PCP - General Internal Medicine 02/24/12 Prelucysh, Charles, OUTREACH NURSE.BLUEBERRY GROWER [address] [place] [address] Referring Pain Management 05/18/23 Auto Research Engineer Relationship Specialty Start Date End Date Maile Norman MD [address] [place], [place] 603161 PCP - General Internal Medicine 02/24/12 Prebish, Charles, OUTREACH NURSE.BLUEBERRY GROWER [address] [place] [address] Referring Pain Management 05/18/23 Auto Research Engineer Relationship Specialty Start Date End Date Maile Norman MD [address] [place] [address] PCP - General Internal Medicine 02/24/12 Prebish, Charles, OUTREACH NURSE.BLUEBERRY GROWER [address] [place] [address] Referring Pain Management 05/18/23 Auto Research Engineer Relationship Specialty Start Date End Date Maile Norman MD [address] [place], [place] 804271 PCP - General Internal Medicine 02/24/12 Prebish, Charles, OUTREACH NURSE.BLUEBERRY GROWER [address] [place] [address] Referring Pain Management 05/18/23 Auto Research Engineer Relationship Specialty Start Date End Date Maile Norman MD [address] [place], [place] 067811 PCP - General Internal Medicine 02/24/12 Prebish, Charles, OUTREACH NURSE.BLUEBERRY GROWER [address] [place] [address] Referring Pain Management 05/18/23 Auto Research Engineer Relationship Specialty Start Date End Date Maile Norman MD [address] [place], [place] 036471 PCP - General Internal Medicine 02/24/12 Prelucysh, Charles, OUTREACH NURSE.BLUEBERRY GROWER [address] [place] [address] Referring Pain Management 05/18/23 Auto Research Engineer Relationship Specialty Start Date End Date Maile Norman MD [address] [place], [place] 807871 PCP - General Internal Medicine 02/24/12 Prebish, Charles, OUTREACH NURSE.BLUEBERRY GROWER [address] [place] [address] Referring Pain Management 05/18/23 Auto Research Engineer Relationship Specialty Start Date End Date Maile Norman MD [address] [place] [address] PCP - General Internal Medicine 02/24/12 Prebish, Charles, OUTREACH NURSE.BLUEBERRY GROWER [address] [place] [address] Referring Pain Management 05/18/23 Auto Research Engineer Relationship Specialty Start Date End Date Maile Norman MD [address] [place], [place] 605561 PCP - General Internal Medicine 02/24/12 Prebish, Charles, OUTREACH NURSE.BLUEBERRY GROWER [address] [place] [address] Referring Pain Management 05/18/23 Auto Research Engineer Relationship Specialty Start Date End Date Maile Norman MD [address] [place] [address] PCP - General Internal Medicine 02/24/12 Prebish, Charles, OUTREACH NURSE.BLUEBERRY GROWER [address] [place] [address] Referring Pain Management 05/18/23 Auto Research Engineer Relationship Specialty Start Date End Date Maile Norman MD [address] [place], [place] 966141 PCP - General Internal Medicine 02/24/12 Prebish, Charles, OUTREACH NURSE.BLUEBERRY GROWER [address] [place] [address] Referring Pain Management 05/18/23 Auto Research Engineer Relationship Specialty Start Date End Date Maile Norman MD [address] [place] [address] PCP - General Internal Medicine 02/24/12 Prebish, Charles, OUTREACH NURSE.BLUEBERRY GROWER [address] [place] [address] Referring Pain Management 05/18/23 Auto Research Engineer Relationship Specialty Start Date End Date Maile Norman MD [address] [place], [place] 385091 PCP - General Internal Medicine 02/24/12 Prebish, Charles, OUTREACH NURSE.BLUEBERRY GROWER [address] [place] [address] Referring Pain Management 05/18/23 Auto Research Engineer Relationship Specialty Start Date End Date Maile Norman MD [address] [place], [place] 767501 PCP - General Internal Medicine 02/24/12 Prebish, Charles, OUTREACH NURSE.BLUEBERRY GROWER [address] [place] [address] Referring Pain Management 05/18/23 Auto Research Engineer Relationship Specialty Start Date End Date Maile Norman MD [address] [place], [place] 982171 PCP - General Internal Medicine 02/24/12 Prebish, Charles, OUTREACH NURSE.BLUEBERRY GROWER [address] [place] [address] Referring Pain Management 05/18/23 Auto Research Engineer Relationship Specialty Start Date End Date Maile Norman MD [address] [place], [place] 363941 PCP - General Internal Medicine 02/24/12 Prebish, Charles, OUTREACH NURSE.BLUEBERRY GROWER [address] [place] [address] Referring Pain Management 05/18/23 Auto Research Engineer Relationship Specialty Start Date End Date Maile Norman MD [address] [place], [place] 094301 PCP - General Internal Medicine 02/24/12 Prebish, Charles, OUTREACH NURSE.BLUEBERRY GROWER [address] [place] [address] Referring Pain Management 05/18/23 Auto Research Engineer Relationship Specialty Start Date End Date Maile Norman MD [address] [place], [place] 793601 PCP - General Internal Medicine 02/24/12 Presh, Charles, OUTREACH NURSE.BLUEBERRY GROWER [address] [place] [address] Referring Pain Management 05/18/23 Auto Research Engineer Relationship Specialty Start Date End Date Maile Norman MD [address] [place], [place] 611961 PCP - General Internal Medicine 02/24/12 Prebish, Charles, OUTREACH NURSE.BLUEBERRY GROWER [address] [place] [address] Referring Pain Management 05/18/23 Auto Research Engineer Relationship Specialty Start Date End Date Maile Norman MD [address] [place], [place] 554451 PCP - General Internal Medicine 02/24/12 Prebish, Charles, OUTREACH NURSE.BLUEBERRY GROWER [address] [place] [address] Referring Pain Management 05/18/23 Auto Research Engineer Relationship Specialty Start Date End Date Maile Norman MD [address] [place], [place] 010831 PCP - General Internal Medicine 02/24/12 Prebish, Charles, OUTREACH NURSE.BLUEBERRY GROWER [address] [place], [place] 770415 Referring Pain Management 05/18/23 Auto Research Engineer Relationship Specialty Start Date End Date Maile Norman MD [address] [place], [place] 189521 PCP - General Internal Medicine 02/24/12 Prebish, Charles, OUTREACH NURSE.BLUEBERRY GROWER [address] [place], [place] 471275 Referring Pain Management 05/18/23 Auto Research Engineer Relationship Specialty Start Date End Date Maile Norman MD [address] [place], [place] 099901 PCP - General Internal Medicine 02/24/12 Prebish, Charles, OUTREACH NURSE.BLUEBERRY GROWER [address] [place], [place] 217065 Referring Pain Management 05/18/23 Auto Research Engineer Relationship Specialty Start Date End Date Maile Norman MD [address] [place], [place] 635641 PCP - General Internal Medicine 02/24/12 Prebish, Charles, OUTREACH NURSE.BLUEBERRY GROWER [address] [place] [address] Referring Pain Management 05/18/23 Auto Research Engineer Relationship Specialty Start Date End Date Maile Norman MD [address] [place], [place] 442071 PCP - General Internal Medicine 02/24/12 Prebish, Charles, OUTREACH NURSE.BLUEBERRY GROWER [address] [place] [address] Referring Pain Management 05/18/23 Auto Research Engineer Relationship Specialty Start Date End Date Maile Norman MD [address] [place] [address] PCP - General Internal Medicine 02/24/12 Preluycsh, Charles, OUTREACH NURSE.BLUEBERRY GROWER [address] [place] [address] Referring Pain Management 05/18/23 Auto Research Engineer Relationship Specialty Start Date End Date Maile Norman MD [address] [place] [address] PCP - General Internal Medicine 02/24/12 Prebish, Charles, OUTREACH NURSE.BLUEBERRY GROWER [address] [place] [address] Referring Pain Management 05/18/23 Auto Research Engineer Relationship Specialty Start Date End Date Maile Norman MD [address] [place] [address] PCP - General Internal Medicine 02/24/12 Charles Stanton APRN.BLUEBERRY GROWER [address] [place] [address] Referring Pain Management 05/18/23 Auto Research Engineer Relationship Specialty Start Date End Date Maile Norman MD [address] [place], [place] 515961 PCP - General Internal Medicine 02/24/12 Charles Stanton APRN.BLUEBERRY GROWER [address] [place] [address] Referring Pain Management 05/18/23 Auto Research Engineer Relationship Specialty Start Date End Date Maile Norman MD [address] [place], [place] 299391 PCP - General Internal Medicine 02/24/12 Auto Research Engineer Relationship Specialty Start Date End Date Maile Norman MD [address] [place], [place] 331881 PCP - General Internal Medicine 02/24/12 Auto Research Engineer Relationship Specialty Start Date End Date Maile Norman MD [address] [place], [place] 745081 PCP - General Internal Medicine 02/24/12 Charles Stanton APRN.BLUEBERRY GROWER [address] [place] [address] Referring Pain Management 05/18/23 Auto Research Engineer Relationship Specialty Start Date End Date Maile Norman MD [address] [place] [address] PCP - General Internal Medicine 02/24/12 Charles Stanton APRN.BLUEBERRY GROWER [address] [place] [address] Referring Pain Management 05/18/23 Auto Research Engineer Relationship Specialty Start Date End Date Maile Norman MD [address] [place], [place] 488901 PCP - General Internal Medicine 02/24/12 Charles Stanton APRN.BLUEBERRY GROWER [address] [place] [address] Referring Pain Management 05/18/23 Auto Research Engineer Relationship Specialty Start Date End Date Maile Norman MD [address] [place], [place] 109521 PCP - General Internal Medicine 02/24/12 Charles Stanton, OUTREACH NURSE.BLUEBERRY GROWER [address] [place] [address] Referring Pain Management 05/18/23 Auto Research Engineer Relationship Specialty Start Date End Date Maile Norman MD [address] [place], [place] 968481 PCP - General Internal Medicine 02/24/12 Charles Stanton APRN.BLUEBERRY GROWER [address] [place] [address] Referring Pain Management 05/18/23 Auto Research Engineer Relationship Specialty Start Date End Date Maile Norman MD [address] [place], [place] 854691 PCP - General Internal Medicine 02/24/12 Prebish, Charles, OUTREACH NURSE.BLUEBERRY GROWER [address] [place] [address] Referring Pain Management 05/18/23 Auto Research Engineer Relationship Specialty Start Date End Date Maile Norman MD [address] [place], [place] 359121 PCP - General Internal Medicine 02/24/12 Prebish, Charles, OUTREACH NURSE.BLUEBERRY GROWER [address] [place] [address] Referring Pain Management 05/18/23 Auto Research Engineer Relationship Specialty Start Date End Date Maile Norman MD [address] [place], [place] 445881 PCP - General Internal Medicine 02/24/12 Prebish, Charles, OUTREACH NURSE.BLUEBERRY GROWER [address] [place] [address] Referring Pain Management 05/18/23 Auto Research Engineer Relationship Specialty Start Date End Date Maile Norman MD [address] [place] [address] PCP - General Internal Medicine 02/24/12 Prebish, Charles, OUTREACH NURSE.BLUEBERRY GROWER [address] [place] [address] Referring Pain Management 05/18/23 Auto Research Engineer Relationship Specialty Start Date End Date Maile Norman MD [address] [place], [place] 071461 PCP - General Internal Medicine 02/24/12 Charles Stanton, OUTREACH NURSE.BLUEBERRY GROWER [address] [place], [place] 135455 Referring Pain Management 05/18/23 Auto Research Engineer Relationship Specialty Start Date End Date Maile Norman MD [address], [place] [id number] PCP - General Internal Medicine 02/24/12 Charles Stanton, OUTREACH NURSE.BLUEBERRY GROWER [address] [place], [place] 488645 Referring Pain Management 05/18/23 Auto Research Engineer Relationship Specialty Start Date End Date Maile Norman MD [address], [place] [id number] PCP - General Internal Medicine 02/24/12 Charles Stanton, OUTREACH NURSE.BLUEBERRY GROWER [address] [place], [place] 636985 Referring Pain Management 05/18/23 Karen Mckee OUTREACH NURSE.DRIER TENDER NAPHTHALENE [address], [place] [id number] [facility] 06/04/24 Sam Khan OUTREACH NURSE.BLUEBERRY GROWER [address] [place], [place] 62316691 [facility] 06/04/24 Auto Research Engineer Relationship Specialty Start Date End Date Maile Norman MD [address] [place], [place] 411791 PCP - General Internal Medicine 02/24/12 Charles Stanton APRN.BLUEBERRY GROWER [address] [place] [address] Referring Pain Management 05/18/23 Karen Mckee OUTREACH NURSE.DRIER TENDER NAPHTHALENE [address], [place] 699361 [facility] 06/04/24 Sam Khan APRN.BLUEBERRY GROWER 0 [place], [place] 166821 [facility] 06/04/24 Auto Research Engineer Relationship Specialty Start Date End Date Maile Norman MD [address] [place], [place] 551871 PCP - General Internal Medicine 02/24/12 Charles Stanton APRN.BLUEBERRY GROWER [address] [place] [address] Referring Pain Management 05/18/23 Karen Mckee OUTREACH NURSE.DRIER TENDER NAPHTHALENE [address] [place] [address] [facility] 06/04/24 Sam Khan OUTREACH NURSE.BLUEBERRY GROWER [address] [place], [place] 342381 [facility] Internal [facility] 06/04/24 Auto Research Engineer Relationship Specialty Start Date End Date Maile Norman MD [address] [place], [place] 335261 PCP - General Internal Medicine 02/24/12 Charles Stanton APRN.BLUEBERRY GROWER [address] [place] [address] Referring Pain Management 05/18/23 Karen Mckee, OUTREACH NURSE.DRIER TENDER NAPHTHALENE [address] [place] [address] [facility] 06/04/24 Sam Khan APRN.BLUEBERRY GROWER [address] [place] [address] [facility] Internal [facility] 06/04/24 Auto Research Engineer Relationship Specialty Start Date End Date Maile Norman MD [address] [place], [place] 360621 PCP - General Internal Medicine 02/24/12 Charles Stanton, OUTREACH NURSE.BLUEBERRY GROWER [address] [place] [address] Referring Pain Management 05/18/23 Karen Mckee OUTREACH NURSE.DRIER TENDER NAPHTHALENE [address] [place] [address] [facility] 06/04/24 Sam Khan APRN.BLUEBERRY GROWER [address] [place] [address] [facility] Internal [facility] 06/04/24 Auto Research Engineer Relationship Specialty Start Date End Date Maile Norman MD [address] [place] [address] PCP - General Internal Medicine 02/24/12 Charles Stanton APRN.BLUEBERRY GROWER [address] [place] [address] Referring Pain Management 05/18/23 Karen Mckee APRN.DRIER TENDER NAPHTHALENE [address] [place] [address] [facility] 06/04/24 Sam Khan APRN.BLUEBERRY GROWER [address] [place] [address] [facility] 06/04/24 Auto Research Engineer Relationship Specialty Start Date End Date Maile Norman MD 0 [place], [place] 997301 PCP - General Internal Medicine 02/24/12 Charles Stanton APRN.BLUEBERRY GROWER [address] [place] [address] Referring Pain Management 05/18/23 Karen Mckee APRN.DRIER TENDER NAPHTHALENE [address] [place] [address] [facility] Internal [facility] 06/04/24 Sam Khan OUTREACH NURSE.BLUEBERRY GROWER [facility]0 [place], [place] 524991 [facility] Internal [facility] 06/04/24 Auto Research Engineer Relationship Specialty Start Date End Date Maile Norman MD [address] [place], [place] 938731 PCP - General Internal Medicine 02/24/12 Charles Stanton APRN.BLUEBERRY GROWER [address] [place] [address] Referring Pain Management 05/18/23 Karen Mckee APRN.DRIER TENDER NAPHTHALENE [address] [place], [place] 988881 [facility] 06/04/24 Sam Khan APRN.BLUEBERRY GROWER [facility] [place], [place] 967621 [facility] Internal [facility] 06/04/24 Auto Research Engineer Relationship Specialty Start Date End Date Maile Norman MD [address] [place] [address] PCP - General Internal Medicine 02/24/12 Charles Stanton APRN.BLUEBERRY GROWER [address] [place] [address] Referring Pain Management 05/18/23 Karen Mckee APRN.DRIER TENDER NAPHTHALENE [address] [place], [place] 598531 [facility] 06/04/24 Sam Khan OUTREACH NURSE.BLUEBERRY GROWER [address] [place], [place] 11748691 [facility] 06/04/24 Auto Research Engineer Relationship Specialty Start Date End Date Maile Norman MD [address] [place], [place] 588321 PCP - General Internal Medicine 02/24/12 Charles Stanton APRN.BLUEBERRY GROWER [address] [place], [place] 740915 Referring Pain Management 05/18/23 Karen Mckee APRN.DRIER TENDER NAPHTHALENE [address] [place], [place] 245971 [facility] 06/04/24 Sam Khan APRN.BLUEBERRY GROWER [address] [place], [place] 361311 [facility] Internal [facility] 06/04/24 Auto Research Engineer Relationship Specialty Start Date End Date Maile Norman MD [address] [place], [place] 749041 PCP - General Internal Medicine 02/24/12 Charles Stanton APRN.BLUEBERRY GROWER [address] [place], [place] 503325 Referring Pain Management 05/18/23 Karen Mckee APRN.DRIER TENDER NAPHTHALENE [address] [place], [place] 115931 [facility] Internal [facility] 06/04/24 Sam Khan APRN.BLUEBERRY GROWER [address] [place], [place] 818281 [facility] Internal Medicine 06/04/24 Auto Research Engineer Relationship Specialty Start Date End Date Maile Norman MD [address] [place], [place] 362331 PCP - General Internal Medicine 02/24/12 Charles Stantno, OUTREACH NURSE.BLUEBERRY GROWER [address] [place], [place] 313465 Referring Pain Management 05/18/23 Karen Mckee, OUTREACH NURSE.DRIER TENDER NAPHTHALENE [address] [place], [place] 937431 [facility] 06/04/24 Sam Khan OUTREACH NURSE.BLUEBERRY GROWER [address] [place], [place] 764351 [facility] Internal [facility] 06/04/24 Auto Research Engineer Relationship Specialty Start Date End Date Maile Norman MD [address] [place], [place] 125301 PCP - General Internal Medicine 02/24/12 Charles Stanton, OUTREACH NURSE.BLUEBERRY GROWER [address] [place], [place] 156175 Referring Pain Management 05/18/23 Karen Mckee, OUTREACH NURSE.DRIER TENDER NAPHTHALENE [address] [place], [place] 162491 [facility] 06/04/24 Sam Khan OUTREACH NURSE.BLUEBERRY GROWER [address] [place], [place] 685821 [facility] 06/04/24 Auto Research Engineer Relationship Specialty Start Date End Date Maile Norman MD [address] [place], [place] 376201 PCP - General Internal Medicine 02/24/12 Charles Stanton, OUTREACH NURSE.BLUEBERRY GROWER [address] [place] [address] Referring Pain Management 05/18/23 Kaern Mckee APRN.DRIER TENDER NAPHTHALENE [address] [place] [address] [facility] 06/04/24 Sam Khan APRN.BLUEBERRY GROWER [facility] [place] [address] [facility] Internal [facility] 06/04/24 Auto Research Engineer Relationship Specialty Start Date End Date Maile Norman MD [address] [place] [address] 106921 PCP - General Internal Medicine 02/24/12 Charles Stanton APRN.BLUEBERRY GROWER [address] [place], [place] 989615 Referring Pain Management 05/18/23 Karen Mckee APRN.DRIER TENDER NAPHTHALENE [facility] [place] [address] [facility] 06/04/24 Sam Khan APRN.BLUEBERRY GROWER [facility] [place] [address] [facility] Internal [facility] 06/04/24 Auto Research Engineer Relationship Specialty Start Date End Date Maile Norman MD [address] [place], [place] 906651 PCP - General Internal Medicine 02/24/12 Charles Stanton APRN.BLUEBERRY GROWER [address] [place] [address] Referring Pain Management 05/18/23 Karen Mckee APRN.DRIER TENDER NAPHTHALENE [address] [place] [address] [facility] 06/04/24 Sam Khan APRN.BLUEBERRY GROWER [address] [place], [place] 714021 [facility] 06/04/24 Auto Research Engineer Relationship Specialty Start Date End Date Maile Norman MD [address] [place], [place] 717251 PCP - General Internal Medicine 02/24/12 Charles Stanton APRN.BLUEBERRY GROWER [address] [place] [address] Referring Pain Management 05/18/23 Karen Mckee APRN.DRIER TENDER NAPHTHALENE [address] [place] [address] [facility] 06/04/24 Sam Khan APRN.BLUEBERRY GROWER [address] [place], [place] 130411 [facility] 06/04/24 Auto Research Engineer Relationship Specialty Start Date End Date Maile Norman MD [address] [place], [place] [id number] PCP - General Internal Medicine 02/24/12 Charles Stanton APRN.BLUEBERRY GROWER [address] [place], [place] 615845 Referring Pain Management 05/18/23 Karen Mckee OUTREACH NURSE.DRIER TENDER NAPHTHALENE [address] [place], [place] 364991 [facility] 06/04/24 Sam Khan OUTREACH NURSE.BLUEBERRY GROWER [address] [place], [place] 090051 [facility] 06/04/24 Auto Research Engineer Relationship Specialty Start Date End Date Maile Norman MD [address] [place], [place] 747231 PCP - General Internal Medicine 02/24/12 Charles Stanton APRN.BLUEBERRY GROWER [address] [place], [place] 854755 Referring Pain Management 05/18/23 Karen Mckee OUTREACH NURSE.DRIER TENDER NAPHTHALENE [address] [place], [place] 774681 [facility] Internal Medicine 06/04/24 Sam Khan OUTREACH NURSE.BLUEBERRY GROWER [address] [place], [place] 649051 [facility] Internal Medicine 09/18/24 Auto Research Engineer Relationship Specialty Start Date End Date Maile Norman MD [address] [place], [place] 366071 PCP - General Internal Medicine 02/24/12 Charles Stanton APRN.BLUEBERRY GROWER [address] [place] [address] Referring Pain Management 05/18/23 Karen Mckee APRN.DRIER TENDER NAPHTHALENE [address] [place] [address] [facility] 06/04/24 Sam Khan APRN.BLUEBERRY GROWER [address] [place], [place] 407251 [facility] 09/18/24 Auto Research Engineer Relationship Specialty Start Date End Date Maile Norman MD [address] [place], [place] 436431 PCP - General Internal Medicine 02/24/12 Charles Stanton APRN.BLUEBERRY GROWER [address] [place], [place] 760385 Referring Pain Management 05/18/23 Karen Mckee APRN.DRIER TENDER NAPHTHALENE [address] [place], [place] 086971 [facility] 06/04/24 Sam Khan APRN.BLUEBERRY GROWER [address] [place], [place] 275821 [facility] 09/18/24 Auto Research Engineer Relationship Specialty Start Date End Date Maile Norman MD [address] [place], [place] 065741 PCP - General Internal Medicine 02/24/12 Charles Stanton APRN.BLUEBERRY GROWER [address] [place] [address] Referring Pain Management 05/18/23 Karen Mckee APRN.DRIER TENDER NAPHTHALENE [address] [place] [address] [facility] Internal [facility] 06/04/24 Sam Khan APRN.BLUEBERRY GROWER [address] [place] [address] [facility] Internal [facility] 09/18/24 Auto Research Engineer Relationship Specialty Start Date End Date Maile Norman MD [address] [place] [address] PCP - General Internal Medicine 02/24/12 Charles Stanton APRN.BLUEBERRY GROWER [address] [place], [place] 801965 Referring Pain Management 05/18/23 Karen Mckee APRN.DRIER TENDER NAPHTHALENE [address] [place] [address] [facility] Internal [facility] 06/04/24 Sam Khan APRN.BLUEBERRY GROWER [address] [place] [address] [facility] Internal [facility] 09/18/24 Auto Research Engineer Relationship Specialty Start Date End Date Maile Norman MD [address] [place] [address] PCP - General Internal Medicine 02/24/12 Charles Stanton APRN.BLUEBERRY GROWER [address] [place] [address] Referring Pain Management 05/18/23 Karen Mckee APRN.DRIER TENDER NAPHTHALENE [address] [place] [address] [facility] 06/04/24 Sam Khan APRN.BLUEBERRY GROWER [address] [place] [address] [facility] 09/18/24 Auto Research Engineer Relationship Specialty Start Date End Date Maile Norman MD [address] [place] [address] PCP - General Internal Medicine 02/24/12 Charles Stanton APRN.BLUEBERRY GROWER [address] [place], [place] 693905 Referring Pain Management 05/18/23 Karen Mckee APRN.DRIER TENDER NAPHTHALENE [address] [place] [address] [facility] 06/04/24 Sam Khan APRN.BLUEBERRY GROWER [address] [place] [address] [facility] 09/18/24 Auto Research Engineer Relationship Specialty Start Date End Date Maile Norman MD [address] [place] [address] PCP - General Internal Medicine 02/24/12 Charles Stanton OUTREACH NURSE.BLUEBERRY GROWER [address] [place] [address] Referring Pain Management 05/18/23 Karen Mckee OUTREACH NURSE.DRIER TENDER NAPHTHALENE [address] [place] [address] [facility] 06/04/24 Sam Khan APRN.BLUEBERRY GROWER [address] [place], [place] 668321 [facility] 09/18/24 Auto Research Engineer Relationship Specialty Start Date End Date Maile Norman MD [address] [place], [place] 379421 PCP - General Internal Medicine 02/24/12 Charles Stanton APRN.BLUEBERRY GROWER [address] [place], [place] 869805 Referring Pain Management 05/18/23 Karen Mckee APRN.DRIER TENDER NAPHTHALENE [address] [place] [address] [facility] 06/04/24 Sam Khan APRN.BLUEBERRY GROWER [address] [place], [place] 014011 [facility] 09/18/24 Auto Research Engineer Relationship Specialty Start Date End Date Maile Norman MD [address] [place], [place] 743701 PCP - General Internal Medicine 02/24/12 Charles Stanton, OUTREACH NURSE.BLUEBERRY GROWER [address] [place] [address] Referring Pain Management 05/18/23 Karen Mckee APRN.DRIER TENDER NAPHTHALENE [address] [place], [place] 604391 [facility] 06/04/24 Sam Khan APRN.BLUEBERRY GROWER [address] [place], [place] 849551 [facility] Internal [facility] 09/18/24 Auto Research Engineer Relationship Specialty Start Date End Date Maile Norman MD [address] [place], [place] 802701 PCP - General Internal Medicine 02/24/12 Charles Stanton APRN.BLUEBERRY GROWER [address] [place], [place] 33941685 Referring Pain Management 05/18/23 Karen Mckee APRN.DRIER TENDER NAPHTHALENE [address] [place] [address] [facility] 06/04/24 Sam Khan APRN.BLUEBERRY GROWER [address] [place], [place] 081101 [facility] Internal Medicine 09/18/24 Auto Research Engineer Relationship Specialty Start Date End Date Maile Norman MD [address] [place], [place] 126771 PCP - General Internal Medicine 02/24/12 Charles Stanton APRN.BLUEBERRY GROWER [address] [place], [place] 979915 Referring Pain Management 05/18/23 Karen Mckee APRN.DRIER TENDER NAPHTHALENE [address] [place] [address] [facility] 06/04/24 Sam Khan APRN.BLUEBERRY GROWER [address] [place] [address] [facility] 09/18/24 Auto Research Engineer Relationship Specialty Start Date End Date Maile Norman MD [address] [place] [address] PCP - General Internal Medicine 02/24/12 Charles Stanton APRN.BLUEBERRY GROWER [address] [place], [place] 72338685 Referring Pain Management 05/18/23 Karen Mckee APRN.DRIER TENDER NAPHTHALENE [address] [place] [address] [facility] 06/04/24 Sam Khan APRN.BLUEBERRY GROWER [address] [place] [address] [facility] 09/18/24 Auto Research Engineer Relationship Specialty Start Date End Date Maile Norman MD [address] [place] [address] PCP - General Internal Medicine 02/24/12 Charles Stanton APRN.BLUEBERRY GROWER [address] [place], [place] 582085 Referring Pain Management 05/18/23 Karen Mckee APRN.DRIER TENDER NAPHTHALENE [address] [place] [address] [facility] 06/04/24 Sam Khan APRN.BLUEBERRY GROWER [address] [place] [address] [facility] 09/18/24 Auto Research Engineer Relationship Specialty Start Date End Date Maile Norman MD [address] [place] [address] PCP - General Internal Medicine 02/24/12 Charles Stanton APRN.BLUEBERRY GROWER [address] [place] [address] Referring Pain Management 05/18/23 Karen Mckee APRN.DRIER TENDER NAPHTHALENE [address] [place], [place] 570441 [facility] 06/04/24 Sam Khan APRN.BLUEBERRY GROWER [address] [place] [address] [facility] 09/18/24 Auto Research Engineer Relationship Specialty Start Date End Date Maile Norman MD [address] [place] [address] PCP - General Internal Medicine 02/24/12 Charles Stanton, OUTREACH NURSE.BLUEBERRY GROWER [address] [place] [address] Referring Pain Management 05/18/23 Karen Mckee OUTREACH NURSE.DRIER TENDER NAPHTHALENE [address] [place] [address] [facility] 06/04/24 Sam Khan APRN.BLUEBERRY GROWER [address] [place] [address] [facility] 09/18/24 Auto Research Engineer Relationship Specialty Start Date End Date Maile Norman MD [address] [place] [address] PCP - General Internal Medicine 02/24/12 Charles Stanton APRN.BLUEBERRY GROWER [address] [place] [address] Referring Pain Management 05/18/23 Karen Mckee APRN.DRIER TENDER NAPHTHALENE [address] [place], [place] 202331 [facility] 06/04/24 Sam Khan APRN.BLUEBERRY GROWER [address] [place] [address] [facility] 09/18/24 Auto Research Engineer Relationship Specialty Start Date End Date Maile Norman MD [address] [place], [place] 844131 PCP - General Internal Medicine 02/24/12 Charles Stanton APRN.BLUEBERRY GROWER [address] [place] [address] Referring Pain Management 05/18/23 Karne Mckee OUTREACH NURSE.DRIER TENDER NAPHTHALENE [address] [place] [address] [facility] 06/04/24 Sam Khan APRN.BLUEBERRY GROWER [address] [place], [place] 564801 [facility] 09/18/24 Auto Research Engineer Relationship Specialty Start Date End Date Maile Norman MD [address] [place], [place] 504181 PCP - General Internal Medicine 02/24/12 Charles Stanton APRN.BLUEBERRY GROWER [address] [place] [address] Referring Pain Management 05/18/23 Sam Khan OUTREACH NURSE.BLUEBERRY GROWER [address] [place], [place] 888381 [facility] 09/18/24 Karen Mckee APRN.DRIER TENDER NAPHTHALENE [address] [place] [address] [facility] 11/14/24 Auto Research Engineer Relationship Specialty Start Date End Date Maile Norman MD [address] [place], [place] 713271 PCP - General Internal Medicine 02/24/12 Charles Stanton, OUTREACH NURSE.BLUEBERRY GROWER [address] [place] [address] Referring Pain Management 05/18/23 Sam Khan OUTREACH NURSE.BLUEBERRY GROWER [address] [place], [place] 777551 [facility] 09/18/24 Karen Mckee APRN.DRIER TENDER NAPHTHALENE [address] [place], [place] 677591 [facility] 11/14/24 Auto Research Engineer Relationship Specialty Start Date End Date Maile Norman MD [address] [place], [place] 718921 PCP - General Internal Medicine 02/24/12 Charles Stanton APRN.BLUEBERRY GROWER [address] [place] [address] Referring Pain Management 05/18/23 Sam Khan OUTREACH NURSE.BLUEBERRY GROWER [address] [place], [place] 490341 [facility] 09/18/24 Karen Mckee APRN.DRIER TENDER NAPHTHALENE [address] [place] [address] [facility] 11/14/24 Auto Research Engineer Relationship Specialty Start Date End Date Maile Norman MD [address] [place], [place] 611121 PCP - General Internal Medicine 02/24/12 Charles Stanton, OUTREACH NURSE.BLUEBERRY GROWER [address] [place] [address] Referring Pain Management 05/18/23 Sam Khan OUTREACH NURSE.BLUEBERRY GROWER [address] [place] [address] [facility] 09/18/24 Karen Mckee APRN.DRIER TENDER NAPHTHALENE [address] [place] [address] [facility] 11/14/24 Auto Research Engineer Relationship Specialty Start Date End Date Maile Norman MD [address] [place] [address] PCP - General Internal Medicine 02/24/12 Charles Stanton APRN.BLUEBERRY GROWER [address] [place] [address] Referring Pain Management 05/18/23 Sam Khan APRN.BLUEBERRY GROWER [address] [place] [address] [facility] 09/18/24 Karen Mckee APRN.DRIER TENDER NAPHTHALENE [address] [place] [address] [facility] 11/14/24 Auto Research Engineer Relationship Specialty Start Date End Date Maile Norman MD [address] [place], [place] 868131 PCP - General Internal Medicine 02/24/12 Charles Stanton APRN.BLUEBERRY GROWER [address] [place] [address] Referring Pain Management 05/18/23 Sam Khan APRN.BLUEBERRY GROWER [address] [place] [address] [facility] 09/18/24 Karen Mckee APRN.DRIER TENDER NAPHTHALENE [address] [place] [address] [facility] 11/14/24 Auto Research Engineer Relationship Specialty Start Date End Date Maile Norman MD [address] [place] [address] PCP - General Internal Medicine 02/24/12 Charles Stanton APRN.BLUEBERRY GROWER [address] [place] [address] Referring Pain Management 05/18/23 Sam Khan APRN.BLUEBERRY GROWER [address] [place] [address] [facility] 09/18/24 Karen Mckee APRN.DRIER TENDER NAPHTHALENE [address] [place] [address] [facility] 11/14/24 Auto Research Engineer Relationship Specialty Start Date End Date Maile Norman MD [address] [place] [address] PCP - General Internal Medicine 02/24/12 Charles Stanton APRN.BLUEBERRY GROWER [address] [place] [address] Referring Pain Management 05/18/23 Sam Khan APRN.BLUEBERRY GROWER [address] [place] [address] [facility] 09/18/24 Karen Mckee OUTREACH NURSE.DRIER TENDER NAPHTHALENE [address] [place], [place] 131931 [facility] 11/14/24 Auto Research Engineer Relationship Specialty Start Date End Date Maile Norman MD [address] [place], [place] 035051 PCP - General Internal Medicine 02/24/12 Charles Stanton APRN.BLUEBERRY GROWER [address] [place] [address] Referring Pain Management 05/18/23 Sam Khan OUTREACH NURSE.BLUEBERRY GROWER [address] [place], [place] 683611 [facility] 09/18/24 Karen Mckee, OUTREACH NURSE.DRIER TENDER NAPHTHALENE [address] [place] [address] [facility] 11/14/24 Auto Research Engineer Relationship Specialty Start Date End Date Maile Norman MD [address] [place] [address] PCP - General Internal Medicine 02/24/12 Charles Stanton OUTREACH NURSE.BLUEBERRY GROWER [address] [place] [address] Referring Pain Management 05/18/23 Sam Khan OUTREACH NURSE.BLUEBERRY GROWER [address] [place] [address] [facility] 09/18/24 Karen Mckee OUTREACH NURSE.DRIER TENDER NAPHTHALENE [address] [place], [place] 428741 [facility] 11/14/24 Auto Research Engineer Relationship Specialty Start Date End Date Maile Norman MD [address] [place], [place] 092741 PCP - General Internal Medicine 02/24/12 Charles Stanton APRN.BLUEBERRY GROWER [address] [place] [address] Referring Pain Management 05/18/23 Sam Khan APRN.BLUEBERRY GROWER [address] [place], [place] 456121 [facility] 09/18/24 Karen Mckee APRN.DRIER TENDER NAPHTHALENE [address] [place] [address] [facility] 11/14/24 Auto Research Engineer Relationship Specialty Start Date End Date Maile Norman MD [address] [place] [address] PCP - General Internal Medicine 02/24/12 Charles Stanton APRN.BLUEBERRY GROWER [address] [place] [address] Referring Pain Management 05/18/23 Sam Khan APRN.BLUEBERRY GROWER [address] [place] [address] [facility] 09/18/24 Karen Mckee APRN.DRIER TENDER NAPHTHALENE [address] [place] [address] [facility] 11/14/24 Auto Research Engineer Relationship Specialty Start Date End Date Maile Norman MD [address] [place] [address] PCP - General Internal Medicine 02/24/12 Charles Stanton APRN.BLUEBERRY GROWER [address] [place] [address] Referring Pain Management 05/18/23 Sam Khan APRN.BLUEBERRY GROWER [address] [place] [address] [facility] 09/18/24 Karen Mckee APRN.DRIER TENDER NAPHTHALENE [address] [place] [address] [facility] 11/14/24 Auto Research Engineer Relationship Specialty Start Date End Date Maile Norman MD [address] [place] [address] PCP - General Internal Medicine 02/24/12 Charles Stanton APRN.BLUEBERRY GROWER [address] [place] [address] Referring Pain Management 05/18/23 Sam Khan APRN.BLUEBERRY GROWER [address] [place] [address] [facility] 09/18/24 Karen Mckee APRN.DRIER TENDER NAPHTHALENE [address] [place] [address] [facility] 11/14/24 Auto Research Engineer Relationship Specialty Start Date End Date Maile Norman MD [address] [place] [address] PCP - General Internal Medicine 02/24/12 Charles Stanton APRN.BLUEBERRY GROWER [address] [place] [address] Referring Pain Management 05/18/23 Sam Khan APRN.BLUEBERRY GROWER [address] [place] [address] [facility] 09/18/24 Karen Mckee APRN.DRIER TENDER NAPHTHALENE [address] [place] [address] [facility] 11/14/24 Auto Research Engineer Relationship Specialty Start Date End Date Maile Norman MD [address] [place], [place] 345271 PCP - General Internal Medicine 02/24/12 Charles Stanton APRN.BLUEBERRY GROWER [address] [place] [address] Referring Pain Management 05/18/23 Sam Khan APRN.BLUEBERRY GROWER [address] [place] [address] [facility] Internal Medicine 09/18/24 Karen Mckee APRN.DRIER TENDER [address] [place] [address] [facility] 11/14/24 Auto Research Engineer Relationship Specialty Start Date End Date Maile Norman MD [address] [place], [place] [id number] PCP - General Internal Medicine 02/24/12 Charles Stanton APRN.BLUEBERRY GROWER [address] [place], [place] [address] Referring Pain Management 05/18/23 Sam Khan APRN.BLUEBERRY [address]OWER [address] [place], [place] [id number] [facility] 09/18/24 Karen Mckee APRN.DRIER TENDER [address] [place], [place] [id number] [facility] Internal [facility] 11/14/24 Auto Research Engineer Relationship Specialty Start Date End Date Maile Norman MD [address] [place], [place] [id number] PCP - General Internal Medicine 02/24/12 Charles Stanton APRN.BLUE[address]ERRY [address]OWER [address] [place] [address] Referring Pain Management 05/18/23 Sam Khan APRN.BLUEBERRY GROWER [address] [place], [place] [address] [facility] Internal Medicine 09/18/24 Karen Mckee APRN.DRIER TENDER [address] [place], [place] [id number] [facility] Internal Medicine 11/14/24 Auto Research Engineer Relationship Specialty Start Date End Date Maile Norman MD [address] [place], [place] [id number] PCP - General Internal Medicine 02/24/12 Charles Stanton APRN.BLUEBERRY [address]OWER [address] [place] [address] Referring Pain Management 05/18/23 Sam Khan OUTREACH NURSE.BLUEBERRY GROWER [address] [facility] [place] [address] [facility] Internal Medicine 09/18/24 Hubert Karen, RIGOBERTO.DRIER TENDER [address] [facility] [place] [address] [facility] Internal Medicine 11/14/24 Source Comments (unrecognize d section and content) In the event this informatio n is protected by the Federal Confidentiality of Alcohol and Drug Abuse Patient Records regulations: The Federal rules restrict any use of the information to criminally investigate or prosecute any alcohol or drug abuse patient.[facility]In the event this information is protected by the Federal Confidentiality of Alcohol and Drug Abuse Patient Records regulations: The Federal rules restrict any use of the information to criminally investigate or prosecute any alcohol or drug abuse patient.[facility] HospitalIn the event this information is protected by the Federal Confidentiality of Alcohol and Drug Abuse Patient Records regulations: The Federal rules restrict any use of the information to criminally investigate or prosecute any alcohol or drug abuse patient.[facility] HospitalIn the event this information is protected by the Federal Confidentiality of Alcohol and Drug Abuse Patient Records regulations: The Federal rules restrict any use of the information to criminally investigate or prosecute any alcohol or drug abuse patient.[facility] HospitalIn the event this information is protected by the Federal Confidentiality of Alcohol and Drug Abuse Patient Records regulations: The Federal rules restrict any use of the information to criminally investigate or prosecute any alcohol or drug abuse patient.[facility] HospitalIn the event this information is protected by the Federal Confidentiality of Alcohol and Drug Abuse Patient Records regulations: The Federal rules restrict any use of the information to criminally investigate or prosecute any alcohol or drug abuse patient.[facility] HospitalIn the event this information is protected by the Federal Confidentiality of Alcohol and Drug Abuse Patient Records regulations: The Federal rules restrict any use of the information to criminally investigate or prosecute any alcohol or drug abuse patient.[facility] HospitalIn the event this information is protected by the Federal Confidentiality of Alcohol and Drug Abuse Patient Records regulations: The Federal rules restrict any use of the information to criminally investigate or prosecute any alcohol or drug abuse patient.[facility] HospitalIn the event this information is protected by the Federal Confidentiality of Alcohol and Drug Abuse Patient Records regulations: The Federal rules restrict any use of the information to criminally investigate or prosecute any alcohol or drug abuse patient.[facility] HospitalIn the event this information is protected by the Federal Confidentiality of Alcohol and Drug Abuse Patient Records regulations: The Federal rules restrict any use of the information to criminally investigate or prosecute any alcohol or drug abuse patient.[facility] HospitalIn the event this information is protected by the Federal Confidentiality of Alcohol and Drug Abuse Patient Records regulations: The Federal rules restrict any use of the information to criminally investigate or prosecute any alcohol or drug abuse patient.[facility] HospitalIn the event this information is protected by the Federal Confidentiality of Alcohol and Drug Abuse Patient Records regulations: The Federal rules restrict any use of the information to criminally investigate or prosecute any alcohol or drug abuse patient.[facility] HospitalIn the event this information is protected by the Federal Confidentiality of Alcohol and Drug Abuse Patient Records regulations: The Federal rules restrict any use of the information to criminally investigate or prosecute any alcohol or drug abuse patient.[facility] HospitalIn the event this information is protected by the Federal Confidentiality of Alcohol and Drug Abuse Patient Records regulations: The Federal rules restrict any use of the information to criminally investigate or prosecute any alcohol or drug abuse patient.[facility] HospitalIn the event this information is protected by the Federal Confidentiality of Alcohol and Drug Abuse Patient Records regulations: The Federal rules restrict any use of the information to criminally investigate or prosecute any alcohol or drug abuse patient.[facility] HospitalIn the event this information is protected by the Federal Confidentiality of Alcohol and Drug Abuse Patient Records regulations: The Federal rules restrict any use of the information to criminally investigate or prosecute any alcohol or drug abuse patient.[facility] HospitalIn the event this information is protected by the Federal Confidentiality of Alcohol and Drug Abuse Patient Records regulations: The Federal rules restrict any use of the information to criminally investigate or prosecute any alcohol or drug abuse patient.[facility] HospitalIn the event this information is protected by the Federal Confidentiality of Alcohol and Drug Abuse Patient Records regulations: The Federal rules restrict any use of the information to criminally investigate or prosecute any alcohol or drug abuse patient.[facility] HospitalIn the event this information is protected by the Federal Confidentiality of Alcohol and Drug Abuse Patient Records regulations: The Federal rules restrict any use of the information to criminally investigate or prosecute any alcohol or drug abuse patient.[facility] HospitalIn the event this information is protected by the Federal Confidentiality of Alcohol and Drug Abuse Patient Records regulations: The Federal rules restrict any use of the information to criminally investigate or prosecute any alcohol or drug abuse patient.[facility] HospitalIn the event this information is protected by the Federal Confidentiality of Alcohol and Drug Abuse Patient Records regulations: The Federal rules restrict any use of the information to criminally investigate or prosecute any alcohol or drug abuse patient.[facility] HospitalIn the event this information is protected by the Federal Confidentiality of Alcohol and Drug Abuse Patient Records regulations: The Federal rules restrict any use of the information to criminally investigate or prosecute any alcohol or drug abuse patient.[facility] HospitalIn the event this information is protected by the Federal Confidentiality of Alcohol and Drug Abuse Patient Records regulations: The Federal rules restrict any use of the information to criminally investigate or prosecute any alcohol or drug abuse patient.[facility] HospitalIn the event this information is protected by the Federal Confidentiality of Alcohol and Drug Abuse Patient Records regulations: The Federal rules restrict any use of the information to criminally investigate or prosecute any alcohol or drug abuse patient.[facility] HospitalIn the event this information is protected by the Federal Confidentiality of Alcohol and Drug Abuse Patient Records regulations: The Federal rules restrict any use of the information to criminally investigate or prosecute any alcohol or drug abuse patient.[facility] HospitalIn the event this information is protected by the Federal Confidentiality of Alcohol and Drug Abuse Patient Records regulations: The Federal rules restrict any use of the information to criminally investigate or prosecute any alcohol or drug abuse patient.[facility] HospitalIn the event this information is protected by the Federal Confidentiality of Alcohol and Drug Abuse Patient Records regulations: The Federal rules restrict any use of the information to criminally investigate or prosecute any alcohol or drug abuse patient.[facility] HospitalIn the event this information is protected by the Federal Confidentiality of Alcohol and Drug Abuse Patient Records regulations: The Federal rules restrict any use of the information to criminally investigate or prosecute any alcohol or drug abuse patient.[facility] HospitalIn the event this information is protected by the Federal Confidentiality of Alcohol and Drug Abuse Patient Records regulations: The Federal rules restrict any use of the information to criminally investigate or prosecute any alcohol or drug abuse patient.[facility] HospitalIn the event this information is protected by the Federal Confidentiality of Alcohol and Drug Abuse Patient Records regulations: The Federal rules restrict any use of the information to criminally investigate or prosecute any alcohol or drug abuse patient.[facility] HospitalIn the event this information is protected by the Federal Confidentiality of Alcohol and Drug Abuse Patient Records regulations: The Federal rules restrict any use of the information to criminally investigate or prosecute any alcohol or drug abuse patient.[facility] HospitalIn the event this information is protected by the Federal Confidentiality of Alcohol and Drug Abuse Patient Records regulations: The Federal rules restrict any use of the information to criminally investigate or prosecute any alcohol or drug abuse patient.[facility] HospitalIn the event this information is protected by the Federal Confidentiality of Alcohol and Drug Abuse Patient Records regulations: The Federal rules restrict any use of the information to criminally investigate or prosecute any alcohol or drug abuse patient.[facility] HospitalIn the event this information is protected by the Federal Confidentiality of Alcohol and Drug Abuse Patient Records regulations: The Federal rules restrict any use of the information to criminally investigate or prosecute any alcohol or drug abuse patient.[facility] HospitalIn the event this information is protected by the Federal Confidentiality of Alcohol and Drug Abuse Patient Records regulations: The Federal rules restrict any use of the information to criminally investigate or prosecute any alcohol or drug abuse patient.[facility] HospitalIn the event this information is protected by the Federal Confidentiality of Alcohol and Drug Abuse Patient Records regulations: The Federal rules restrict any use of the information to criminally investigate or prosecute any alcohol or drug abuse patient.[facility] HospitalIn the event this information is protected by the Federal Confidentiality of Alcohol and Drug Abuse Patient Records regulations: The Federal rules restrict any use of the information to criminally investigate or prosecute any alcohol or drug abuse patient.[facility] HospitalIn the event this information is protected by the Federal Confidentiality of Alcohol and Drug Abuse Patient Records regulations: The Federal rules restrict any use of the information to criminally investigate or prosecute any alcohol or drug abuse patient.[facility] HospitalIn the event this information is protected by the Federal Confidentiality of Alcohol and Drug Abuse Patient Records regulations: The Federal rules restrict any use of the information to criminally investigate or prosecute any alcohol or drug abuse patient.[facility] HospitalIn the event this information is protected by the Federal Confidentiality of Alcohol and Drug Abuse Patient Records regulations: The Federal rules restrict any use of the information to criminally investigate or prosecute any alcohol or drug abuse patient.[facility] HospitalIn the event this information is protected by the Federal Confidentiality of Alcohol and Drug Abuse Patient Records regulations: The Federal rules restrict any use of the information to criminally investigate or prosecute any alcohol or drug abuse patient.[facility] HospitalIn the event this information is protected by the Federal Confidentiality of Alcohol and Drug Abuse Patient Records regulations: The Federal rules restrict any use of the information to criminally investigate or prosecute any alcohol or drug abuse patient.[facility] HospitalIn the event this information is protected by the Federal Confidentiality of Alcohol and Drug Abuse Patient Records regulations: The Federal rules restrict any use of the information to criminally investigate or prosecute any alcohol or drug abuse patient.[facility] HospitalIn the event this information is protected by the Federal Confidentiality of Alcohol and Drug Abuse Patient Records regulations: The Federal rules restrict any use of the information to criminally investigate or prosecute any alcohol or drug abuse patient.[facility] HospitalIn the event this information is protected by the Federal Confidentiality of Alcohol and Drug Abuse Patient Records regulations: The Federal rules restrict any use of the information to criminally investigate or prosecute any alcohol or drug abuse patient.[facility] HospitalIn the event this information is protected by the Federal Confidentiality of Alcohol and Drug Abuse Patient Records regulations: The Federal rules restrict any use of the information to criminally investigate or prosecute any alcohol or drug abuse patient.[facility] HospitalIn the event this information is protected by the Federal Confidentiality of Alcohol and Drug Abuse Patient Records regulations: The Federal rules restrict any use of the information to criminally investigate or prosecute any alcohol or drug abuse patient.[facility] HospitalIn the event this information is protected by the Federal Confidentiality of Alcohol and Drug Abuse Patient Records regulations: The Federal rules restrict any use of the information to criminally investigate or prosecute any alcohol or drug abuse patient.[facility] HospitalIn the event this information is protected by the Federal Confidentiality of Alcohol and Drug Abuse Patient Records regulations: The Federal rules restrict any use of the information to criminally investigate or prosecute any alcohol or drug abuse patient.[facility] HospitalIn the event this information is protected by the Federal Confidentiality of Alcohol and Drug Abuse Patient Records regulations: The Federal rules restrict any use of the information to criminally investigate or prosecute any alcohol or drug abuse patient.[facility] HospitalIn the event this information is protected by the Federal Confidentiality of Alcohol and Drug Abuse Patient Records regulations: The Federal rules restrict any use of the information to criminally investigate or prosecute any alcohol or drug abuse patient.[facility] HospitalIn the event this information is protected by the Federal Confidentiality of Alcohol and Drug Abuse Patient Records regulations: The Federal rules restrict any use of the information to criminally investigate or prosecute any alcohol or drug abuse patient.[facility] HospitalIn the event this information is protected by the Federal Confidentiality of Alcohol and Drug Abuse Patient Records regulations: The Federal rules restrict any use of the information to criminally investigate or prosecute any alcohol or drug abuse patient.[facility] HospitalIn the event this information is protected by the Federal Confidentiality of Alcohol and Drug Abuse Patient Records regulations: The Federal rules restrict any use of the information to criminally investigate or prosecute any alcohol or drug abuse patient.[facility] HospitalIn the event this information is protected by the Federal Confidentiality of Alcohol and Drug Abuse Patient Records regulations: The Federal rules restrict any use of the information to criminally investigate or prosecute any alcohol or drug abuse patient.[facility] HospitalIn the event this information is protected by the Federal Confidentiality of Alcohol and Drug Abuse Patient Records regulations: The Federal rules restrict any use of the information to criminally investigate or prosecute any alcohol or drug abuse patient.[facility] HospitalIn the event this information is protected by the Federal Confidentiality of Alcohol and Drug Abuse Patient Records regulations: The Federal rules restrict any use of the information to criminally investigate or prosecute any alcohol or drug abuse patient.[facility] HospitalIn the event this information is protected by the Federal Confidentiality of Alcohol and Drug Abuse Patient Records regulations: The Federal rules restrict any use of the information to criminally investigate or prosecute any alcohol or drug abuse patient.[facility] HospitalIn the event this information is protected by the Federal Confidentiality of Alcohol and Drug Abuse Patient Records regulations: The Federal rules restrict any use of the information to criminally investigate or prosecute any alcohol or drug abuse patient.[facility] HospitalIn the event this information is protected by the Federal Confidentiality of Alcohol and Drug Abuse Patient Records regulations: The Federal rules restrict any use of the information to criminally investigate or prosecute any alcohol or drug abuse patient.[facility] HospitalIn the event this information is protected by the Federal Confidentiality of Alcohol and Drug Abuse Patient Records regulations: The Federal rules restrict any use of the information to criminally investigate or prosecute any alcohol or drug abuse patient.[facility] HospitalIn the event this information is protected by the Federal Confidentiality of Alcohol and Drug Abuse Patient Records regulations: The Federal rules restrict any use of the information to criminally investigate or prosecute any alcohol or drug abuse patient.[facility] HospitalIn the event this information is protected by the Federal Confidentiality of Alcohol and Drug Abuse Patient Records regulations: The Federal rules restrict any use of the information to criminally investigate or prosecute any alcohol or drug abuse patient.[facility] HospitalIn the event this information is protected by the Federal Confidentiality of Alcohol and Drug Abuse Patient Records regulations: The Federal rules restrict any use of the information to criminally investigate or prosecute any alcohol or drug abuse patient.[facility] HospitalIn the event this information is protected by the Federal Confidentiality of Alcohol and Drug Abuse Patient Records regulations: The Federal rules restrict any use of the information to criminally investigate or prosecute any alcohol or drug abuse patient.[facility] HospitalIn the event this information is protected by the Federal Confidentiality of Alcohol and Drug Abuse Patient Records regulations: The Federal rules restrict any use of the information to criminally investigate or prosecute any alcohol or drug abuse patient.[facility] HospitalIn the event this information is protected by the Federal Confidentiality of Alcohol and Drug Abuse Patient Records regulations: The Federal rules restrict any use of the information to criminally investigate or prosecute any alcohol or drug abuse patient.[facility] HospitalIn the event this information is protected by the Federal Confidentiality of Alcohol and Drug Abuse Patient Records regulations: The Federal rules restrict any use of the information to criminally investigate or prosecute any alcohol or drug abuse patient.[facility] HospitalIn the event this information is protected by the Federal Confidentiality of Alcohol and Drug Abuse Patient Records regulations: The Federal rules restrict any use of the information to criminally investigate or prosecute any alcohol or drug abuse patient.[facility] HospitalIn the event this information is protected by the Federal Confidentiality of Alcohol and Drug Abuse Patient Records regulations: The Federal rules restrict any use of the information to criminally investigate or prosecute any alcohol or drug abuse patient.[facility] HospitalIn the event this information is protected by the Federal Confidentiality of Alcohol and Drug Abuse Patient Records regulations: The Federal rules restrict any use of the information to criminally investigate or prosecute any alcohol or drug abuse patient.[facility] HospitalIn the event this information is protected by the Federal Confidentiality of Alcohol and Drug Abuse Patient Records regulations: The Federal rules restrict any use of the information to criminally investigate or prosecute any alcohol or drug abuse patient.[facility] HospitalIn the event this information is protected by the Federal Confidentiality of Alcohol and Drug Abuse Patient Records regulations: The Federal rules restrict any use of the information to criminally investigate or prosecute any alcohol or drug abuse patient.[facility] HospitalIn the event this information is protected by the Federal Confidentiality of Alcohol and Drug Abuse Patient Records regulations: The Federal rules restrict any use of the information to criminally investigate or prosecute any alcohol or drug abuse patient.[facility] HospitalIn the event this information is protected by the Federal Confidentiality of Alcohol and Drug Abuse Patient Records regulations: The Federal rules restrict any use of the information to criminally investigate or prosecute any alcohol or drug abuse patient.[facility] HospitalIn the event this information is protected by the Federal Confidentiality of Alcohol and Drug Abuse Patient Records regulations: The Federal rules restrict any use of the information to criminally investigate or prosecute any alcohol or drug abuse patient.[facility] HospitalIn the event this information is protected by the Federal Confidentiality of Alcohol and Drug Abuse Patient Records regulations: The Federal rules restrict any use of the information to criminally investigate or prosecute any alcohol or drug abuse patient.[facility] HospitalIn the event this information is protected by the Federal Confidentiality of Alcohol and Drug Abuse Patient Records regulations: The Federal rules restrict any use of the information to criminally investigate or prosecute any alcohol or drug abuse patient.[facility] HospitalIn the event this information is protected by the Federal Confidentiality of Alcohol and Drug Abuse Patient Records regulations: The Federal rules restrict any use of the information to criminally investigate or prosecute any alcohol or drug abuse patient.[facility] HospitalIn the event this information is protected by the Federal Confidentiality of Alcohol and Drug Abuse Patient Records regulations: The Federal rules restrict any use of the information to criminally investigate or prosecute any alcohol or drug abuse patient.[facility] HospitalIn the event this information is protected by the Federal Confidentiality of Alcohol and Drug Abuse Patient Records regulations: The Federal rules restrict any use of the information to criminally investigate or prosecute any alcohol or drug abuse patient.[facility] HospitalIn the event this information is protected by the Federal Confidentiality of Alcohol and Drug Abuse Patient Records regulations: The Federal rules restrict any use of the information to criminally investigate or prosecute any alcohol or drug abuse patient.[facility] HospitalIn the event this information is protected by the Federal Confidentiality of Alcohol and Drug Abuse Patient Records regulations: The Federal rules restrict any use of the information to criminally investigate or prosecute any alcohol or drug abuse patient.[facility] HospitalIn the event this information is protected by the Federal Confidentiality of Alcohol and Drug Abuse Patient Records regulations: The Federal rules restrict any use of the information to criminally investigate or prosecute any alcohol or drug abuse patient.[facility] HospitalIn the event this information is protected by the Federal Confidentiality of Alcohol and Drug Abuse Patient Records regulations: The Federal rules restrict any use of the information to criminally investigate or prosecute any alcohol or drug abuse patient.[facility] HospitalIn the event this information is protected by the Federal Confidentiality of Alcohol and Drug Abuse Patient Records regulations: The Federal rules restrict any use of the information to criminally investigate or prosecute any alcohol or drug abuse patient.[facility] HospitalIn the event this information is protected by the Federal Confidentiality of Alcohol and Drug Abuse Patient Records regulations: The Federal rules restrict any use of the information to criminally investigate or prosecute any alcohol or drug abuse patient.[facility] HospitalIn the event this information is protected by the Federal Confidentiality of Alcohol and Drug Abuse Patient Records regulations: The Federal rules restrict any use of the information to criminally investigate or prosecute any alcohol or drug abuse patient.[facility] HospitalIn the event this information is protected by the Federal Confidentiality of Alcohol and Drug Abuse Patient Records regulations: The Federal rules restrict any use of the information to criminally investigate or prosecute any alcohol or drug abuse patient.[facility] HospitalIn the event this information is protected by the Federal Confidentiality of Alcohol and Drug Abuse Patient Records regulations: The Federal rules restrict any use of the information to criminally investigate or prosecute any alcohol or drug abuse patient.[facility] HospitalIn the event this information is protected by the Federal Confidentiality of Alcohol and Drug Abuse Patient Records regulations: The Federal rules restrict any use of the information to criminally investigate or prosecute any alcohol or drug abuse patient.[facility] HospitalIn the event this information is protected by the Federal Confidentiality of Alcohol and Drug Abuse Patient Records regulations: The Federal rules restrict any use of the information to criminally investigate or prosecute any alcohol or drug abuse patient.[facility] HospitalIn the event this information is protected by the Federal Confidentiality of Alcohol and Drug Abuse Patient Records regulations: The Federal rules restrict any use of the information to criminally investigate or prosecute any alcohol or drug abuse patient.[facility] HospitalIn the event this information is protected by the Federal Confidentiality of Alcohol and Drug Abuse Patient Records regulations: The Federal rules restrict any use of the information to criminally investigate or prosecute any alcohol or drug abuse patient.[facility] HospitalIn the event this information is protected by the Federal Confidentiality of Alcohol and Drug Abuse Patient Records regulations: The Federal rules restrict any use of the information to criminally investigate or prosecute any alcohol or drug abuse patient.[facility] HospitalIn the event this information is protected by the Federal Confidentiality of Alcohol and Drug Abuse Patient Records regulations: The Federal rules restrict any use of the information to criminally investigate or prosecute any alcohol or drug abuse patient.[facility] HospitalIn the event this information is protected by the Federal Confidentiality of Alcohol and Drug Abuse Patient Records regulations: The Federal rules restrict any use of the information to criminally investigate or prosecute any alcohol or drug abuse patient.[facility] HospitalIn the event this information is protected by the Federal Confidentiality of Alcohol and Drug Abuse Patient Records regulations: The Federal rules restrict any use of the information to criminally investigate or prosecute any alcohol or drug abuse patient.[facility] HospitalIn the event this information is protected by the Federal Confidentiality of Alcohol and Drug Abuse Patient Records regulations: The Federal rules restrict any use of the information to criminally investigate or prosecute any alcohol or drug abuse patient.[facility] HospitalIn the event this information is protected by the Federal Confidentiality of Alcohol and Drug Abuse Patient Records regulations: The Federal rules restrict any use of the information to criminally investigate or prosecute any alcohol or drug abuse patient.[facility] HospitalIn the event this information is protected by the Federal Confidentiality of Alcohol and Drug Abuse Patient Records regulations: The Federal rules restrict any use of the information to criminally investigate or prosecute any alcohol or drug abuse patient.[facility] HospitalIn the event this information is protected by the Federal Confidentiality of Alcohol and Drug Abuse Patient Records regulations: The Federal rules restrict any use of the information to criminally investigate or prosecute any alcohol or drug abuse patient.[facility] HospitalIn the event this information is protected by the Federal Confidentiality of Alcohol and Drug Abuse Patient Records regulations: The Federal rules restrict any use of the information to criminally investigate or prosecute any alcohol or drug abuse patient.[facility] HospitalIn the event this information is protected by the Federal Confidentiality of Alcohol and Drug Abuse Patient Records regulations: The Federal rules restrict any use of the information to criminally investigate or prosecute any alcohol or drug abuse patient.[facility] HospitalIn the event this information is protected by the Federal Confidentiality of Alcohol and Drug Abuse Patient Records regulations: The Federal rules restrict any use of the information to criminally investigate or prosecute any alcohol or drug abuse patient.[facility] HospitalIn the event this information is protected by the Federal Confidentiality of Alcohol and Drug Abuse Patient Records regulations: The Federal rules restrict any use of the information to criminally investigate or prosecute any alcohol or drug abuse patient.[facility] HospitalIn the event this information is protected by the Federal Confidentiality of Alcohol and Drug Abuse Patient Records regulations: The Federal rules restrict any use of the information to criminally investigate or prosecute any alcohol or drug abuse patient.[facility] HospitalIn the event this information is protected by the Federal Confidentiality of Alcohol and Drug Abuse Patient Records regulations: The Federal rules restrict any use of the information to criminally investigate or prosecute any alcohol or drug abuse patient.[facility] HospitalIn the event this information is protected by the Federal Confidentiality of Alcohol and Drug Abuse Patient Records regulations: The Federal rules restrict any use of the information to criminally investigate or prosecute any alcohol or drug abuse patient.[facility] HospitalIn the event this information is protected by the Federal Confidentiality of Alcohol and Drug Abuse Patient Records regulations: The Federal rules restrict any use of the information to criminally investigate or prosecute any alcohol or drug abuse patient.[facility] HospitalIn the event this information is protected by the Federal Confidentiality of Alcohol and Drug Abuse Patient Records regulations: The Federal rules restrict any use of the information to criminally investigate or prosecute any alcohol or drug abuse patient.[facility] HospitalIn the event this information is protected by the Federal Confidentiality of Alcohol and Drug Abuse Patient Records regulations: The Federal rules restrict any use of the information to criminally investigate or prosecute any alcohol or drug abuse patient.[facility] HospitalIn the event this information is protected by the Federal Confidentiality of Alcohol and Drug Abuse Patient Records regulations: The Federal rules restrict any use of the information to criminally investigate or prosecute any alcohol or drug abuse patient.[facility] HospitalIn the event this information is protected by the Federal Confidentiality of Alcohol and Drug Abuse Patient Records regulations: The Federal rules restrict any use of the information to criminally investigate or prosecute any alcohol or drug abuse patient.[facility] HospitalIn the event this information is protected by the Federal Confidentiality of Alcohol and Drug Abuse Patient Records regulations: The Federal rules restrict any use of the information to criminally investigate or prosecute any alcohol or drug abuse patient.[facility] HospitalIn the event this information is protected by the Federal Confidentiality of Alcohol and Drug Abuse Patient Records regulations: The Federal rules restrict any use of the information to criminally investigate or prosecute any alcohol or drug abuse patient.[facility] HospitalIn the event this information is protected by the Federal Confidentiality of Alcohol and Drug Abuse Patient Records regulations: The Federal rules restrict any use of the information to criminally investigate or prosecute any alcohol or drug abuse patient.[facility] HospitalIn the event this information is protected by the Federal Confidentiality of Alcohol and Drug Abuse Patient Records regulations: The Federal rules restrict any use of the information to criminally investigate or prosecute any alcohol or drug abuse patient.[facility] HospitalIn the event this information is protected by the Federal Confidentiality of Alcohol and Drug Abuse Patient Records regulations: The Federal rules restrict any use of the information to criminally investigate or prosecute any alcohol or drug abuse patient.[facility] HospitalIn the event this information is protected by the Federal Confidentiality of Alcohol and Drug Abuse Patient Records regulations: The Federal rules restrict any use of the information to criminally investigate or prosecute any alcohol or drug abuse patient.[facility] HospitalIn the event this information is protected by the Federal Confidentiality of Alcohol and Drug Abuse Patient Records regulations: The Federal rules restrict any use of the information to criminally investigate or prosecute any alcohol or drug abuse patient.[facility] HospitalIn the event this information is protected by the Federal Confidentiality of Alcohol and Drug Abuse Patient Records regulations: The Federal rules restrict any use of the information to criminally investigate or prosecute any alcohol or drug abuse patient.[facility] HospitalIn the event this information is protected by the Federal Confidentiality of Alcohol and Drug Abuse Patient Records regulations: The Federal rules restrict any use of the information to criminally investigate or prosecute any alcohol or drug abuse patient.[facility] HospitalIn the event this information is protected by the Federal Confidentiality of Alcohol and Drug Abuse Patient Records regulations: The Federal rules restrict any use of the information to criminally investigate or prosecute any alcohol or drug abuse patient.[facility] HospitalIn the event this information is protected by the Federal Confidentiality of Alcohol and Drug Abuse Patient Records regulations: The Federal rules restrict any use of the information to criminally investigate or prosecute any alcohol or drug abuse patient.[facility] HospitalIn the event this information is protected by the Federal Confidentiality of Alcohol and Drug Abuse Patient Records regulations: The Federal rules restrict any use of the information to criminally investigate or prosecute any alcohol or drug abuse patient.[facility] HospitalIn the event this information is protected by the Federal Confidentiality of Alcohol and Drug Abuse Patient Records regulations: The Federal rules restrict any use of the information to criminally investigate or prosecute any alcohol or drug abuse patient.[facility] HospitalIn the event this information is protected by the Federal Confidentiality of Alcohol and Drug Abuse Patient Records regulations: The Federal rules restrict any use of the information to criminally investigate or prosecute any alcohol or drug abuse patient.[facility] HospitalIn the event this information is protected by the Federal Confidentiality of Alcohol and Drug Abuse Patient Records regulations: The Federal rules restrict any use of the information to criminally investigate or prosecute any alcohol or drug abuse patient.[facility] HospitalIn the event this information is protected by the Federal Confidentiality of Alcohol and Drug Abuse Patient Records regulations: The Federal rules restrict any use of the information to criminally investigate or prosecute any alcohol or drug abuse patient.[facility] HospitalIn the event this information is protected by the Federal Confidentiality of Alcohol and Drug Abuse Patient Records regulations: The Federal rules restrict any use of the information to criminally investigate or prosecute any alcohol or drug abuse patient.[facility] HospitalIn the event this information is protected by the Federal Confidentiality of Alcohol and Drug Abuse Patient Records regulations: The Federal rules restrict any use of the information to criminally investigate or prosecute any alcohol or drug abuse patient.[facility] HospitalIn the event this information is protected by the Federal Confidentiality of Alcohol and Drug Abuse Patient Records regulations: The Federal rules restrict any use of the information to criminally investigate or prosecute any alcohol or drug abuse patient.[facility] HospitalIn the event this information is protected by the Federal Confidentiality of Alcohol and Drug Abuse Patient Records regulations: The Federal rules restrict any use of the information to criminally investigate or prosecute any alcohol or drug abuse patient.[facility] HospitalIn the event this information is protected by the Federal Confidentiality of Alcohol and Drug Abuse Patient Records regulations: The Federal rules restrict any use of the information to criminally investigate or prosecute any alcohol or drug abuse patient.[facility] HospitalIn the event this information is protected by the Federal Confidentiality of Alcohol and Drug Abuse Patient Records regulations: The Federal rules restrict any use of the information to criminally investigate or prosecute any alcohol or drug abuse patient.[facility] HospitalIn the event this information is protected by the Federal Confidentiality of Alcohol and Drug Abuse Patient Records regulations: The Federal rules restrict any use of the information to criminally investigate or prosecute any alcohol or drug abuse patient.[facility] HospitalIn the event this information is protected by the Federal Confidentiality of Alcohol and Drug Abuse Patient Records regulations: The Federal rules restrict any use of the information to criminally investigate or prosecute any alcohol or drug abuse patient.[facility] HospitalIn the event this information is protected by the Federal Confidentiality of Alcohol and Drug Abuse Patient Records regulations: The Federal rules restrict any use of the information to criminally investigate or prosecute any alcohol or drug abuse patient.[facility] HospitalIn the event this information is protected by the Federal Confidentiality of Alcohol and Drug Abuse Patient Records regulations: The Federal rules restrict any use of the information to criminally investigate or prosecute any alcohol or drug abuse patient.[facility] HospitalIn the event this information is protected by the Federal Confidentiality of Alcohol and Drug Abuse Patient Records regulations: The Federal rules restrict any use of the information to criminally investigate or prosecute any alcohol or drug abuse patient.[facility] HospitalIn the event this information is protected by the Federal Confidentiality of Alcohol and Drug Abuse Patient Records regulations: The Federal rules restrict any use of the information to criminally investigate or prosecute any alcohol or drug abuse patient.[facility] HospitalIn the event this information is protected by the Federal Confidentiality of Alcohol and Drug Abuse Patient Records regulations: The Federal rules restrict any use of the information to criminally investigate or prosecute any alcohol or drug abuse patient.[facility] HospitalIn the event this information is protected by the Federal Confidentiality of Alcohol and Drug Abuse Patient Records regulations: The Federal rules restrict any use of the information to criminally investigate or prosecute any alcohol or drug abuse patient.[facility] HospitalIn the event this information is protected by the Federal Confidentiality of Alcohol and Drug Abuse Patient Records regulations: The Federal rules restrict any use of the information to criminally investigate or prosecute any alcohol or drug abuse patient.[facility] HospitalIn the event this information is protected by the Federal Confidentiality of Alcohol and Drug Abuse Patient Records regulations: The Federal rules restrict any use of the information to criminally investigate or prosecute any alcohol or drug abuse patient.[facility] HospitalIn the event this information is protected by the Federal Confidentiality of Alcohol and Drug Abuse Patient Records regulations: The Federal rules restrict any use of the information to criminally investigate or prosecute any alcohol or drug abuse patient.[facility] HospitalIn the event this information is protected by the Federal Confidentiality of Alcohol and Drug Abuse Patient Records regulations: The Federal rules restrict any use of the information to criminally investigate or prosecute any alcohol or drug abuse patient.[facility] HospitalIn the event this information is protected by the Federal Confidentiality of Alcohol and Drug Abuse Patient Records regulations: The Federal rules restrict any use of the information to criminally investigate or prosecute any alcohol or drug abuse patient.[facility] HospitalIn the event this information is protected by the Federal Confidentiality of Alcohol and Drug Abuse Patient Records regulations: The Federal rules restrict any use of the information to criminally investigate or prosecute any alcohol or drug abuse patient.[facility] HospitalIn the event this information is protected by the Federal Confidentiality of Alcohol and Drug Abuse Patient Records regulations: The Federal rules restrict any use of the information to criminally investigate or prosecute any alcohol or drug abuse patient.[facility] HospitalIn the event this information is protected by the Federal Confidentiality of Alcohol and Drug Abuse Patient Records regulations: The Federal rules restrict any use of the information to criminally investigate or prosecute any alcohol or drug abuse patient.[facility] HospitalIn the event this information is protected by the Federal Confidentiality of Alcohol and Drug Abuse Patient Records regulations: The Federal rules restrict any use of the information to criminally investigate or prosecute any alcohol or drug abuse patient.[facility] HospitalIn the event this information is protected by the Federal Confidentiality of Alcohol and Drug Abuse Patient Records regulations: The Federal rules restrict any use of the information to criminally investigate or prosecute any alcohol or drug abuse patient.[facility] HospitalIn the event this information is protected by the Federal Confidentiality of Alcohol and Drug Abuse Patient Records regulations: The Federal rules restrict any use of the information to criminally investigate or prosecute any alcohol or drug abuse patient.[facility] HospitalIn the event this information is protected by the Federal Confidentiality of Alcohol and Drug Abuse Patient Records regulations: The Federal rules restrict any use of the information to criminally investigate or prosecute any alcohol or drug abuse patient.[facility] HospitalIn the event this information is protected by the Federal Confidentiality of Alcohol and Drug Abuse Patient Records regulations: The Federal rules restrict any use of the information to criminally investigate or prosecute any alcohol or drug abuse patient.[facility] HospitalIn the event this information is protected by the Federal Confidentiality of Alcohol and Drug Abuse Patient Records regulations: The Federal rules restrict any use of the information to criminally investigate or prosecute any alcohol or drug abuse patient.[facility] HospitalIn the event this information is protected by the Federal Confidentiality of Alcohol and Drug Abuse Patient Records regulations: The Federal rules restrict any use of the information to criminally investigate or prosecute any alcohol or drug abuse patient.[facility] HospitalIn the event this information is protected by the Federal Confidentiality of Alcohol and Drug Abuse Patient Records regulations: The Federal rules restrict any use of the information to criminally investigate or prosecute any alcohol or drug abuse patient.[facility] HospitalIn the event this information is protected by the Federal Confidentiality of Alcohol and Drug Abuse Patient Records regulations: The Federal rules restrict any use of the information to criminally investigate or prosecute any alcohol or drug abuse patient.[facility] HospitalIn the event this information is protected by the Federal Confidentiality of Alcohol and Drug Abuse Patient Records regulations: The Federal rules restrict any use of the information to criminally investigate or prosecute any alcohol or drug abuse patient.[facility] HospitalIn the event this information is protected by the Federal Confidentiality of Alcohol and Drug Abuse Patient Records regulations: The Federal rules restrict any use of the information to criminally investigate or prosecute any alcohol or drug abuse patient.[facility] HospitalIn the event this information is protected by the Federal Confidentiality of Alcohol and Drug Abuse Patient Records regulations: The Federal rules restrict any use of the information to criminally investigate or prosecute any alcohol or drug abuse patient.[facility] HospitalIn the event this information is protected by the Federal Confidentiality of Alcohol and Drug Abuse Patient Records regulations: The Federal rules restrict any use of the information to criminally investigate or prosecute any alcohol or drug abuse patient.[facility] HospitalIn the event this information is protected by the Federal Confidentiality of Alcohol and Drug Abuse Patient Records regulations: The Federal rules restrict any use of the information to criminally investigate or prosecute any alcohol or drug abuse patient.[facility] HospitalIn the event this information is protected by the Federal Confidentiality of Alcohol and Drug Abuse Patient Records regulations: The Federal rules restrict any use of the information to criminally investigate or prosecute any alcohol or drug abuse patient.[facility] HospitalIn the event this information is protected by the Federal Confidentiality of Alcohol and Drug Abuse Patient Records regulations: The Federal rules restrict any use of the information to criminally investigate or prosecute any alcohol or drug abuse patient.[facility] HospitalIn the event this information is protected by the Federal Confidentiality of Alcohol and Drug Abuse Patient Records regulations: The Federal rules restrict any use of the information to criminally investigate or prosecute any alcohol or drug abuse patient.[facility] HospitalIn the event this information is protected by the Federal Confidentiality of Alcohol and Drug Abuse Patient Records regulations: The Federal rules restrict any use of the information to criminally investigate or prosecute any alcohol or drug abuse patient.[facility] HospitalIn the event this information is protected by the Federal Confidentiality of Alcohol and Drug Abuse Patient Records regulations: The Federal rules restrict any use of the information to criminally investigate or prosecute any alcohol or drug abuse patient.[facility] HospitalIn the event this information is protected by the Federal Confidentiality of Alcohol and Drug Abuse Patient Records regulations: The Federal rules restrict any use of the information to criminally investigate or prosecute any alcohol or drug abuse patient.[facility] HospitalIn the event this information is protected by the Federal Confidentiality of Alcohol and Drug Abuse Patient Records regulations: The Federal rules restrict any use of the information to criminally investigate or prosecute any alcohol or drug abuse patient.[facility] HospitalIn the event this information is protected by the Federal Confidentiality of Alcohol and Drug Abuse Patient Records regulations: The Federal rules restrict any use of the information to criminally investigate or prosecute any alcohol or drug abuse patient.[facility] HospitalIn the event this information is protected by the Federal Confidentiality of Alcohol and Drug Abuse Patient Records regulations: The Federal rules restrict any use of the information to criminally investigate or prosecute any alcohol or drug abuse patient.[facility] HospitalIn the event this information is protected by the Federal Confidentiality of Alcohol and Drug Abuse Patient Records regulations: The Federal rules restrict any use of the information to criminally investigate or prosecute any alcohol or drug abuse patient.[facility] HospitalIn the event this information is protected by the Federal Confidentiality of Alcohol and Drug Abuse Patient Records regulations: The Federal rules restrict any use of the information to criminally investigate or prosecute any alcohol or drug abuse patient.[facility] HospitalIn the event this information is protected by the Federal Confidentiality of Alcohol and Drug Abuse Patient Records regulations: The Federal rules restrict any use of the information to criminally investigate or prosecute any alcohol or drug abuse patient.[facility] HospitalIn the event this information is protected by the Federal Confidentiality of Alcohol and Drug Abuse Patient Records regulations: The Federal rules restrict any use of the information to criminally investigate or prosecute any alcohol or drug abuse patient.[facility] HospitalIn the event this information is protected by the Federal Confidentiality of Alcohol and Drug Abuse Patient Records regulations: The Federal rules restrict any use of the information to criminally investigate or prosecute any alcohol or drug abuse patient.[facility] HospitalIn the event this information is protected by the Federal Confidentiality of Alcohol and Drug Abuse Patient Records regulations: The Federal rules restrict any use of the information to criminally investigate or prosecute any alcohol or drug abuse patient.[facility] HospitalIn the event this information is protected by the Federal Confidentiality of Alcohol and Drug Abuse Patient Records regulations: The Federal rules restrict any use of the information to criminally investigate or prosecute any alcohol or drug abuse patient.[facility] HospitalIn the event this information is protected by the Federal Confidentiality of Alcohol and Drug Abuse Patient Records regulations: The Federal rules restrict any use of the information to criminally investigate or prosecute any alcohol or drug abuse patient.[facility] HospitalIn the event this information is protected by the Federal Confidentiality of Alcohol and Drug Abuse Patient Records regulations: The Federal rules restrict any use of the information to criminally investigate or prosecute any alcohol or drug abuse patient.[facility] HospitalIn the event this information is protected by the Federal Confidentiality of Alcohol and Drug Abuse Patient Records regulations: The Federal rules restrict any use of the information to criminally investigate or prosecute any alcohol or drug abuse patient.[facility] HospitalIn the event this information is protected by the Federal Confidentiality of Alcohol and Drug Abuse Patient Records regulations: The Federal rules restrict any use of the information to criminally investigate or prosecute any alcohol or drug abuse patient.[facility] HospitalIn the event this information is protected by the Federal Confidentiality of Alcohol and Drug Abuse Patient Records regulations: The Federal rules restrict any use of the information to criminally investigate or prosecute any alcohol or drug abuse patient.[facility] HospitalIn the event this information is protected by the Federal Confidentiality of Alcohol and Drug Abuse Patient Records regulations: The Federal rules restrict any use of the information to criminally investigate or prosecute any alcohol or drug abuse patient.[facility] HospitalIn the event this information is protected by the Federal Confidentiality of Alcohol and Drug Abuse Patient Records regulations: The Federal rules restrict any use of the information to criminally investigate or prosecute any alcohol or drug abuse patient.[facility] HospitalIn the event this information is protected by the Federal Confidentiality of Alcohol and Drug Abuse Patient Records regulations: The Federal rules restrict any use of the information to criminally investigate or prosecute any alcohol or drug abuse patient.[facility] HospitalIn the event this information is protected by the Federal Confidentiality of Alcohol and Drug Abuse Patient Records regulations: The Federal rules restrict any use of the information to criminally investigate or prosecute any alcohol or drug abuse patient.[facility] HospitalIn the event this information is protected by the Federal Confidentiality of Alcohol and Drug Abuse Patient Records regulations: The Federal rules restrict any use of the information to criminally investigate or prosecute any alcohol or drug abuse patient.[facility] HospitalIn the event this information is protected by the Federal Confidentiality of Alcohol and Drug Abuse Patient Records regulations: The Federal rules restrict any use of the information to criminally investigate or prosecute any alcohol or drug abuse patient.[facility] HospitalIn the event this information is protected by the Federal Confidentiality of Alcohol and Drug Abuse Patient Records regulations: The Federal rules restrict any use of the information to criminally investigate or prosecute any alcohol or drug abuse patient.[facility] HospitalIn the event this information is protected by the Federal Confidentiality of Alcohol and Drug Abuse Patient Records regulations: The Federal rules restrict any use of the information to criminally investigate or prosecute any alcohol or drug abuse patient.[facility] HospitalIn the event this information is protected by the Federal Confidentiality of Alcohol and Drug Abuse Patient Records regulations: The Federal rules restrict any use of the information to criminally investigate or prosecute any alcohol or drug abuse patient.[facility] HospitalIn the event this information is protected by the Federal Confidentiality of Alcohol and Drug Abuse Patient Records regulations: The Federal rules restrict any use of the information to criminally investigate or prosecute any alcohol or drug abuse patient.[facility] HospitalIn the event this information is protected by the Federal Confidentiality of Alcohol and Drug Abuse Patient Records regulations: The Federal rules restrict any use of the information to criminally investigate or prosecute any alcohol or drug abuse patient.[facility] HospitalIn the event this information is protected by the Federal Confidentiality of Alcohol and Drug Abuse Patient Records regulations: The Federal rules restrict any use of the information to criminally investigate or prosecute any alcohol or drug abuse patient.[facility] HospitalIn the event this information is protected by the Federal Confidentiality of Alcohol and Drug Abuse Patient Records regulations: The Federal rules restrict any use of the information to criminally investigate or prosecute any alcohol or drug abuse patient.[facility] HospitalIn the event this information is protected by the Federal Confidentiality of Alcohol and Drug Abuse Patient Records regulations: The Federal rules restrict any use of the information to criminally investigate or prosecute any alcohol or drug abuse patient.[facility] HospitalIn the event this information is protected by the Federal Confidentiality of Alcohol and Drug Abuse Patient Records regulations: The Federal rules restrict any use of the information to criminally investigate or prosecute any alcohol or drug abuse patient.[facility] HospitalIn the event this information is protected by the Federal Confidentiality of Alcohol and Drug Abuse Patient Records regulations: The Federal rules restrict any use of the information to criminally investigate or prosecute any alcohol or drug abuse patient.[facility] HospitalIn the event this information is protected by the Federal Confidentiality of Alcohol and Drug Abuse Patient Records regulations: The Federal rules restrict any use of the information to criminally investigate or prosecute any alcohol or drug abuse patient.[facility] HospitalIn the event this information is protected by the Federal Confidentiality of Alcohol and Drug Abuse Patient Records regulations: The Federal rules restrict any use of the information to criminally investigate or prosecute any alcohol or drug abuse patient.[facility] HospitalIn the event this information is protected by the Federal Confidentiality of Alcohol and Drug Abuse Patient Records regulations: The Federal rules restrict any use of the information to criminally investigate or prosecute any alcohol or drug abuse patient.[facility] HospitalIn the event this information is protected by the Federal Confidentiality of Alcohol and Drug Abuse Patient Records regulations: The Federal rules restrict any use of the information to criminally investigate or prosecute any alcohol or drug abuse patient.[facility] HospitalIn the event this information is protected by the Federal Confidentiality of Alcohol and Drug Abuse Patient Records regulations: The Federal rules restrict any use of the information to criminally investigate or prosecute any alcohol or drug abuse patient.[facility] HospitalIn the event this information is protected by the Federal Confidentiality of Alcohol and Drug Abuse Patient Records regulations: The Federal rules restrict any use of the information to criminally investigate or prosecute any alcohol or drug abuse patient.[facility] HospitalIn the event this information is protected by the Federal Confidentiality of Alcohol and Drug Abuse Patient Records regulations: The Federal rules restrict any use of the information to criminally investigate or prosecute any alcohol or drug abuse patient.[facility] FOR RECORDS PERTAINING TO PATIENTS WHO [...] BE BASED ON THE PRIMARY CLINICAL RECORDS. [facility]. provides no warranty or guarantee of the accuracy or completeness of information in this document.
[2025-03-15 06:57] LABS: Internal QC Validated? YES +Cl - CLEAR BKGD; Pregnancy, Urine Negative Negative; Record Kit Lot#,Urine Preg 0000964735
[2025-03-15] MEDS: Lactated Ringers 1,000 ML 40 ML IV (06:58)
[2025-03-15] MEDS: Magnesium 2 GM for ERAS IV (06:58)
[2025-03-15] MEDS: Scopolamine 1mg/72hr Patch 1 PATCH TD (07:00)
--- NOTE | 2025-03-15 07:28 | PRE.ANES_ITS ---
ASA Classification* ASA Classification ASA Classification: 2 Assessment & Plan Anesthesia* Anesthesia Assessment Anesthesia Assessment: Discussed sedation and/or anesthesia options, risks, benefits, and alternatives with patient/parents/legal guardian/POA. Questions invited. The patient/parents/legal guardian/POA seems to understand and agrees to proceed with anesthesia plan. Reviewed the physical assessment, medical history, allergy history and patient home medications list prior to surgery/procedure/anesthetic and documented any changes. Performed airway and anesthesia risk assessments. Anesthesia Type Anesthesia Type: General Anesthesia Focused Assessment* Temperature: 98.2 F Pulse Rate: 75 Blood Pressure: 110/80 Respiratory Rate: 16 Pulse Ox: 97 Airway Assessment Mouth opens: >3 cm Mallampati Score: II Labs Anesthesia Preop lab: CBC WBC, (4.4-11.0) 13.7 K/mm3 H 03/12/25, 10: RBC, (4.2-5.4) 4.55 M/mm3 03/12/25, 10: Hgb, (12.0-15.0) 14.3 g/dL 03/12/25, 10: Hct, (37-47) 40.6 % 03/12/25, 10:23 Plt Count, (150-450) 340 K/mm3 03/12/25, 10:23 CHEMISTRY Potassium, (3.3-5.1) 3.8 mmol/L 12/16/24, 13:09 Sodium, (133-145) 139 mmol/L 12/16/24, 13:09 Magnesium, (1.5-2.2) 1.9 mg/dL 03/12/25, 10: BUN, (4-19) 6 mg/dL 12/16/24, 13:09 Creatinine, (0.70-1.20) 0.75 mg/dL 12/16/24, 13:09 Glucose, (70-99) 115 mg/dL H 12/16/24, 13:09 POC Glucose, (74-106) 113 mg/dL H Today, 06:53 TSH, (0.358-3.74) 8.20 uIU/mL H 08/07/19, 20:58 COAG PT, (11.7-14.9) 13.9 SECONDS 01/03/17, 16:25 Urine Test Negative Negative Today, 06:43 Pre-Assessment Diagnosis/Proposed Procedure Planned Operative Procedure(s): TOTAL VAGINAL HYSTERECTOMY BSO POSS CYST Anesthesia History 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 When Was Last Pacemaker Check QUESTION #4 FULL TEXT: You/Your Family Experience fever (hyperthermia) with Anesthesia Last Oral Intake Last Oral intake: Last Oral Intake NPO since 21:00 03/15/25 06:50 Meds taken in AM with sips of Yes 03/15/25 06:50 water? Meds patient instructed to take am of surgery PONV PONV - site safety manager: PONV - site safety manager Female Yes 03/08/25 12:56 HX of Motion Sickness No 03/08/25 12:56 HX of N/V After Surgery No 03/08/25 12:56 Non-Smoker No 03/08/25 12:56 Duration of Surgery greater Yes 03/08/25 12:56 than 60 minutes Number of Risk Factors 2 03/08/25 12:56 PONV Score Moderate Risk 03/08/25 12:56 Height & Weight Height & Weight: Anesthesia: Height & Weight Height 5 ft 5 in 03/15/25 06:50 Weight: 56.245 kg 03/15/25 06:50 Body Mass Index (BMI) 20.6 03/15/25 06:50 Respiratory Assessment Respiratory Assessment - site safety manager: Respiratory Tract Infection Hx - site safety manager Hx Respiratory Tract Infection No 03/08/25 12:56 STOP Sleep Apnea STOP Sleep Apnea - site safety manager: STOP Sleep Apnea - site safety manager Hx Hypertension No 03/08/25 12:56 Hx Sleep Apnea No 03/08/25 12:56 CPAP BIPAP Do you snore loudly (louder No 03/08/25 12:56 than talking or can be heard Do you often feel tired/ No 03/08/25 12:56 fatigued/ sleepy during daytime? Has anyone observed you stop No 03/08/25 12:56 breathing during sleep? STOP Results Negative 03/08/25 12:56 QUESTION #5 FULL TEXT : Do you snore loudly (louder than talking or can be heard through closed doors)? 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 Specify any problems Hx of Preganancy in last 3 No 03/08/25 12:56 Months Nurse Filling Out Transfusion DSCHRIBER 03/08/25 12:56 & Questions: Date: 03/08/25 03/08/25 12:56 Time: 12:58 03/08/25 12:56 Patient unable to answer at this time (ie. confused, unrespo /Reproduction History /Reproductive History - site safety manager: /Reproductive Hx- site safety manager Hx Now No 03/08/25 12:56 Gestational Age (in weeks): EDC: Hx Hx Para Hx Section SAB No 03/08/25 12:56 Active Medications Active Medications: Current Medications Generic Name Dose Route Start Last Admin Trade Name Freq PRN Reason Stop Dose Admin Acetaminophen 1,000 mg 03/15/25 08:30 03/15/25 06:59 Acetaminophen 500 Mg Tablet PO 03/15/25 08:31 1,000 mg PREOP ONE Administration Celecoxib 400 mg 03/15/25 08:30 03/15/25 06:59 Celecoxib 200 Mg Capsule PO 03/15/25 08:31 400 mg PREOP ONE Administration Dexamethasone Sodium Phosphate 8 mg 03/15/25 08:30 Dexamethasone 4 Mg/Ml Vial IV 03/15/25 08:31 INTRAOP ONE Enoxaparin Sodium 40 mg 03/15/25 08:30 03/15/25 07:04 Enoxaparin 40 Mg/0.4 Ml Syringe SC 03/15/25 08:31 40 mg PREOP ONE Administration Gabapentin 600 mg 03/15/25 08:30 03/15/25 07:01 Gabapentin 600 Mg Tablet PO 03/15/25 08:31 600 mg PREOP ONE Administration Lactated Ringer's 1,000 mls @ 40 mls/hr 03/15/25 08:30 03/15/25 06:58 IV 40 mls/hr .Q25H LYNNE Administration Cefazolin Sodium 2 gm/ Sodium 110 mls @ 150 mls/hr 03/15/25 08:30 Chloride IV 03/15/25 09:13 INTRAOP ONE Lactated Ringer's 1,000 mls @ 40 mls/hr 03/15/25 08:30 IV .Q25H LYNNE Magnesium Sulfate 2 gm/ 104 mls @ 208 mls/hr 03/15/25 08:30 03/15/25 06:58 Dextrose IV 03/15/25 08:59 208 mls/hr PREOP ONE Administration Insulin Human Lispro 0 unit 03/15/25 08:30 Insulin Lispro 100 Unit/Ml Insuln.Pen SC Q4H PRN PRN BG >/= 180, SEE PROTOCOL Protocol Ondansetron HCl 4 mg 03/15/25 08:30 Ondansetron 4 Mg/2 Ml Vial IV 03/15/25 08:31 INTRAOP ONE Phenazopyridine HCl 190 mg 03/15/25 08:30 03/15/25 06:59 Phenazopyridine 95 Mg Tablet PO 03/15/25 08:31 190 mg PREOP ONE Administration Scopolamine HBr 1 patch 03/15/25 08:30 03/15/25 07:00 Scopolamine 1mg/72hr Patch TD 03/15/25 08:31 1 patch PREOP ONE Administration PFSH Medical History Shortness of breath on exertion Opiate dependence Desire for detoxification Substance abuse Congestive heart failure (CHF) Marijuana use Wears partial dentures Hepatitis Smoker History of echocardiogram History of stress test Cardiology follow-up encounter History of CHF (congestive heart failure) Esophageal tear Anxiety Home Medications ?Medication ?Instructions ?Recorded ?Last Taken ?Type trazodone 100 mg tablet 100 mg PO QHS sleep 01/03/17 03/14/25 History inhalational spacing device 10/09/23 Unknown History (BreatheRite MDI Spacer) albuterol sulfate 90 mcg/actuation 2 puff inhalation Q 4H PRN PRN 12/06/24 Unknown History aerosol inhaler wheezing alprazolam 0.5 mg tablet 2 mg PO BID PRN PRN anxiety 12/06/24 12/04/24 History ondansetron HCl 4 mg tablet 4 mg PO TID PRN PRN nausea /vomiting 12/06/24 12/06/24 History Allergy/AdvReac Type Severity Reaction Status Date / Time escitalopram (From Lexapro) Allergy Other Verified 03/15/25 06:48 lamotrigine (From Lamictal) Allergy Hives Verified 03/15/25 06:48 nitrofurantoin (From Allergy Unknown Verified 03/15/25 06:48 Macrobid) nitrofurantoin Allergy Unknown Verified 03/15/25 06:48 macrocrystalline (From Macrobid) codeine AdvReac Nausea Verified 03/15/25 06:48 Family History Mother Anxiety Hypertension High cholesterol Diabetes Depression Father Hypertension Surgical History Hx of excision of mass History of tubal ligation History of lumpectomy of right breast History of repair of rotator cuff Hx of surgical procedure Hx of removal of ovary History of tonsillectomy and adenoidectomy Social History household members: family housing: house Smoking Status: Current every day smoker tobacco type: cigarettes substance use type: marijuana additional social history: pt does not vape, does not take aspirin, pt does report using marijuana daily,does uses edibles on occassion, does use ibuprofen as needed. Review of Systems (Anesthesia) ROS Narrative System reviewed and no additional complaints, except as documented.
--- NOTE | 2025-03-15 08:30 | UT_PTH ---
PATIENT: NEEL MEDINA [place] [facility] [id number] AGE/SX: 45/F ROOM: RE03/15/[address]: Dr. Stephy Simpson MD : 1980 BED: DIS: 03/15/2025 SPEC #: [id number] RECD: 03/15/25 11:05 STATUS: JEAN REPrice #: [id number] YAMILA: 03/15/25 08:[address]: Stephy Simpson DEPT: SURGICAL PATHOLOGY RECD BY: Rakan Singh ENTERED: 03/15/25 13:03 SP TYPE: UTERUS OTHR DR: Dr. Tamika Mario MD Tissues: A - Uterus, NOS Procedures: Surgery Specimen Level V HEADER OPERATION: ERAS, total vaginal hysterectomy, partial right salpingectomy PRE-OP DIAGNOSIS: Post endometrial ablation syndrome, adenomyosis, dyspareunia TISSUE SUBMITTED: A- Uterus, cervix, partial right fallopian tube MICROSCOPIC DIAGNOSIS A. Uterus, cervix, partial right fallopian tube, total vaginal hysterectomy and partial right salpingectomy: - Cervix: hyperkeratosis. - Endometrium: no endometrium observed. - Myometrium: adenomyosis, leiomyomata (1.8 cm). - Right fallopian tube: endometriosis; no fimbria observed. - double surface operator consistent with IUD (gross examination only). MICROSCOPIC DESCRIPTION Slides are reviewed. GROSS DESCRIPTION A. Received in formalin labeled with the patient's name and date of . Designated as uterus, cervix, partial right fallopian tube is an 88.1 g, 7.5 x 4.7 x 4.1 cm uterus without attached adnexa. The serosa is castanon-pink with foci of erythema, a palpable leiomyoma (anterior) and two nodules on the posterior peritoneal reflection as follows: Nodule #1: 0.1 x 0.1 x 0.1 cm dark brown-black.Nodule #2: 0.2 x 0.2 x 0.1 cm castanon. The attached cervix is castanon-pink to red and wrinkled, measuring 4.2 x 3.5 cm; the 1.4 cm os is shaggy and focally probe patent. The specimen is inked as follows: [id number]. Opening reveals a 3.2 x 0.7 cm fibrotic and stenotic, ill-defined endometrial canal devoid of identifiable endometrium, with a 0.5 x 0.5 cm firm fibrotic, central scar. The myometrium is castanon-pink and somewhat trabeculated with a 0.7 x 0.4 cm apparent cyst (posterior cornu); the myometrium measures up to 2.3 cm thick. Three intramural leiomyomas are identified, 0.5 cm to 1.8 cm. Also within the container is a 1.4 x 0.3 cm correa metallic medical doctor md/medical director (grossly consistent with contraceptive device) with a minimal amount of attached, apparent fallopian tube, 0.6 x 0.3 cm. Gut Carrier sections are submitted as follows: A1: Anterior cervixA2: Posterior cervixA3: Anterior endomyometrium with scarA4: Posterior endomyometrium with scarA5: Posterior myometrium with apparent cyst A6: Right fallopian tube and serosal nodulesA7: Leiomyomas CT 03/15/2025 CPT:60809
[2025-03-15] MEDS: Midazolam 2 MG/2 ML Syringe IV (08:43)
[2025-03-15] MEDS: Lidocaine 1% (5 ml sdv) 5 ML Vial IV (08:50)
[2025-03-15] MEDS: fentaNYL 100 MCG/2 ML Ampul IV (08:50)
[2025-03-15] MEDS: PROPOFOL 51.58 MG IV (08:56)
[2025-03-15] MEDS: Cefazolin 1 GM/5 ML Vial 2 GM IV (09:02)
[2025-03-15] MEDS: Lidocaine 1%/Epi 1:200 (30ml) 30 ML AMPUL (09:07)
[2025-03-15] MEDS: dexMEDEtomidine 200 MCG/2 ML ML 12 MCG IV (09:07)
--- NOTE | 2025-03-15 10:22 | PCM.POST.ANE ---
Anesthesia: Postop Eval I Current Vital Signs Temperature: 97.3 F Pulse Rate: 78 Blood Pressure: 124/71 Respiratory Rate: 16 Pulse Ox: 98 Oxygen Delivery Method: Room Air Assessment Airway patent: Yes Spontaneous unlabored respirations: Yes Mental status: Awake and Calm nausea: No Vomiting: No Anesthesia Complication: No Fluid Hydration Crystalloid volume administer (ml): 1,600 Total IV fluid infused: 1,600 Progress Note Anesthesia document: Postop Eval 1 completed: Yes
--- NOTE | 2025-03-15 10:25 | DCINST_ITS ---
Discharge Instructions DC O2, CPAP, BIPAP needs Home O2 Discharge instructions: No Dressing / Incision Discharge Activity: May Shower May resume sexual activity in: 6-8 weeks, 8 weeks and - (Nothing in your vagina for 6 weeks. No vaginal or anal intercourse for 8 weeks. No tub baths or swimming pools for 6 weeks) Dressing / Incision Call your doctor if your incision/area has: Continuous Slow Oozing and Sudden Increased Bleeding Call your doctor if you observe: Fever of 101 or Higher, Inability to urinate and Inability to have a bowel movement Cleanse incision/area with: - Follow Up Care Please Follow Up With: Stephy Simpson MD When: With my office in 1-2 and 6 weeks or as needed. Call [phone] or send a [employer] message Test Results: Test results from this visit will be discussed in further detail at your follow- up appointment, if applicable. Discharge Plan Admission Primary Reason for Your Visit: Vaginal hysterectomy Attending Provider: Stephy Simpson Primary Care Provider: Tamika Mario Instructions Print Language: Nepali Discharge Orders/Prescriptions Prescriptions: New acetaminophen [Acetaminophen Extra Strength] 500 mg tablet 1,000 mg PO Q6H PRN (Reason: fever or pain) 20 Days Qty: 90 0RF ibuprofen 600 mg tablet 600 mg PO Q6H PRN (Reason: Pain) 20 Days Qty: 60 1RF oxycodone 5 mg tablet 5 mg PO Q8H PRN (Reason: severe pain) 7 Days Qty: 20 0RF No Action trazodone 100 MG tablet 100 mg PO QHS (DME) BreatheRite MDI Spacer Spacer MISCELLANEOUS X1 ondansetron HCl 4 mg tablet 4 mg PO TID PRN PRN (Reason: nausea/vomiting) alprazolam 0.5 mg tablet 2 mg PO BID PRN PRN (Reason: anxiety) albuterol sulfate 90 mcg/actuation HFA aerosol inhaler 2 puff inhalation Q4H PRN PRN (Reason: wheezing) Patient Comments: has not used since she had pneumonia in summer 2023 Referrals / Follow Up: Tamika Mario MD [Primary Care Provider, Internal Medicine] Disposition Disposition (needs filled in before D/C Order can be placed): Home, Self Care
--- NOTE | 2025-03-15 10:26 | PCM.OPRPT ---
Operative Report (Standard) Operative Information Date of Procedure: 03/15/25 Pre-Operative Diagnosis: adenomyosis, deep dyspareunia, post endometrial ablation syndrome Post-Operative Diagnosis: same Surgery/Procedure Performed: TVH with partial right salpingectomy and cystoscopy certified alcohol and drug counselor: Yes Secretary Of Police: Camille Rao Tasks completed by marketing operations assistant: Hemostasis: Tie and Retracting Additional case management assistant?: No Type of Anesthesia: General RN Documented Start/Stop Times: Operation Date: 03/15/25 08:30 Case Time Into Pre-Op 03/15/25 06:37 Out of Pre-Op 03/15/25 08:37 Anesthesia Start 03/15/25 08:43 Into Room 03/15/25 08:43 Procedure Start 03/15/25 09:07 Procedure End 03/15/25 10:11 Anesthesia End 03/15/25 10:20 Out of Room 03/15/25 10:20 Procedure Start Time: 09:07 Procedure Stop Time: 10:11 Select all DRAINS/GRAFTS/IMPLANTS that apply: None Estimated Blood Loss: 20cc Fluids Replaced: 1600 cc Specimen collected: Yes Description of specimen(s) removed: uterus, cervix, partial right tube Description of surgery: The patient was taken to the operating room where she was prepped and draped in the normal sterile fashion in the dorsal lithotomy position. A weighted speculum was placed in the vagina and the anterior lip of the cervix was grasped with a Juanis clamp. The vaginal epithelium was infiltrated circumferentially around the cervix with 1% Xylocaine solution with dilute epinephrine. An incision was made around the entire cervix with a scalpel and the vaginal epithelium was dissected back with blunt and sharp dissection. The anterior colpotomy incision was made sharply. Entry into the anterior cul-de-sac was confirmed by visualization of the uterine fundus and bowel behind the uterus. The posterior colpotomy was made with the Lr scissors. The posterior peritoneum was secured to the posterior vaginal cuff with an [id number] 0 Vicryl suture. The Golden retractor was placed in the posterior colpotomy incision. The uterosacral ligaments were clamped with Maged clamps transected and suture ligated on both sides and excellent hemostasis of the pedicles was noted. The cardinal ligaments were clamped transected and suture ligated. The remainder of the cardinal ligament with the uterine arteries was clamped transected and suture ligated. The utero-ovarian ligaments and tubes were clamped transected and suture ligated. The uterus was brought out through the colpotomy incision intact. The left tube and ovary appeared normal but were very high and not easily accessed. I attempted to grasp the tube with a Missael clamp and was concerned about tearing it without being able to adequately visualize it so decision was made to leave the tube. The right tube was identified with the fimbria were very high I was able to see the Filshie clips and partially clamp around the tube and Filshie clip. I did not remove the entire fimbria. The small piece of tissue was amputated and the pedicle oversewn with an 0 Vicryl tie. The pedicles were all examined again and found to be hemostatic. At this point a Lennon's culdoplasty was done with 2-0 PDS suture. Entering the posterior vaginal cuff the peritoneum was secured reefed across the peritoneum to the right uterosacral ligament, back across the peritoneum to the left uterosacral ligament and back out through the posterior vaginal wall. The vaginal cuff was then reapproximated horizontally with interrupted 0 Vicryl [id number] sutures. The Lennon's sutures were tied down. The vaginal cuff was hemostatic and excellent support was noted. The Fang was removed and cystoscopy was performed. The bladder was intact and normal in appearance and both ureteral jets were noted. The cystoscope was removed. The vaginal sweep was completed by me. All sponge lap and needle counts were correct. Patient was awakened and taken to theher recovery room in stable condition. There were no qualified residents available for the procedure. Surgical Findings: boggy uterus, normal ovaries, right Filshie clip noted, tubes very high and against sidewall Complications Complications: No Admit VTE Documentation VTE Present on Admission: No VTE Mechan Device Prophylaxis: SCD's VTE Pharm Prophylaxis ordered?: No Reason prophylaxis not ordered: Treatment Not Indicated
[2025-03-15] MEDS: Ketorolac 30 MG/ML Syringe IV (11:16)
--- NOTE | 2025-03-15 13:14 | POSTOPAN2_ITS ---
Anesthesia Postop Eval I Sum Postop Eval Completion status Anesthesia document: Postop Eval 1 completed: Yes Anesthesia Postop Eval I Summary Anesthesia Postop Eval I Summary: Anesthesia Postop Eval I: Assessment Summary Airway patent Yes 03/15/25 10:23 [email or web address] Spontaneous unlabored Yes 03/15/25 10:23 [email or web address] [email or web address] [email or web address] respirations Mental status Awake,Calm 03/15/25 10:23 [email or web address] [email or web address] nausea No 03/15/25 10:23 [email or web address] [email or web address] Vomiting No 03/15/25 10:23 [email or web address] [email or web address] Anesthesia Postop Eval I: Fluid Summary Crystalloid volume administer 1,600 03/15/25 10:23 [address] [email or web address] (ml) Colloids volume administered ( ml) Blood Product volume administered (ml) Total IV fluid infused 1,600 03/15/25 10:23 [address] [email or web address] Anesthesia Postop Eval I: Summary Notes Anesthesia Complication No 03/15/25 10:23 [address] [email or web address] Anesthesia Complication Comment: Post-operative progress note Anesthesia: Postop Eval II Evaluation Mental status: Awake Pain Level: 0 nausea: No Vomiting: No
--- NOTE | 2025-03-15 13:14 | PCM.POSTANE2 ---
Anesthesia Postop Eval I Sum Postop Eval Completion status Anesthesia document: Postop Eval 1 completed: Yes Anesthesia Postop Eval I Summary Anesthesia Postop Eval I Summary: Anesthesia Postop Eval I: Assessment Summary Airway patent Yes 03/15/25 10:23 [email or web address] Spontaneous unlabored Yes 03/15/25 10:23 [email or web address] respirations Mental status Awake,Calm 03/15/25 10:23 [email or web address] nausea No 03/15/25 10:23 [email or web address] Vomiting No 03/15/25 10:23 [email or web address] Anesthesia Postop Eval I: Fluid Summary Crystalloid volume administer 1,600 03/15/25 10:23 [email or web address] (ml) Colloids volume administered ( ml) Blood Product volume administered (ml) Total IV fluid infused 1,600 03/15/25 10:23 [email or web address] Anesthesia Postop Eval I: Summary Notes Anesthesia Complication No 03/15/25 10:23 [email or web address] Anesthesia Complication Comment: Post-operative progress note Anesthesia: Postop Eval II Evaluation Mental status: Awake Pain Level: 0 nausea: No Vomiting: No
== END 2025-03-15 13:26 | disposition home or self-care (01) ==
LOC: SDC 06:36 → AC 06:36
PROVIDERS: Anesthesiology; PCP Internal Medicine; Referring Provider Internal Medicine; Visit Provider Obstetrics & Gynecology
PROC: (CPT 58260; principal; 2025-03-15 08:10)
DX: N80.201 Endometriosis of right fallopian tube, unspecified depth (principal); I50.9 Heart failure, unspecified; N80.03 Adenomyosis of the uterus; F17.210 Nicotine dependence, cigarettes, uncomplicated; N99.85 Post endometrial ablation syndrome; N94.12 Deep dyspareunia; N88.0 Leukoplakia of cervix uteri; D25.1 Intramural leiomyoma of uterus
CPT/HCPCS: 58262; 00944; 36415; 81025; 82962; 83735; 85027; 86850; 86900; 86901; 88307; J2405

== ENCOUNTER 2025-04-23 21:08 | Emergency (ER) | payer MEDICAID, SELFPAY ==
[2025-04-23 21:08] VITALS: BP 143/80; PULSE 62; RESP 15; TEMP 36.1; O2SAT 100; BMI 22.5
--- NOTE | 2025-04-23 21:25 | CT_ITS ---
PROCEDURE: CT/Pelvis WITH IV Contrast
--- NOTE | 2025-04-23 21:37 | ED.RN ---
This RN completed the appropriate assessments on the patient. The patient explained, I dissolved the rest of my Percocets from the surgery because I don't like how I feel when I take them and I have just been taking tylenol the past few days and I just cannot deal with this pain anymore. I need something for the pain because this is worse than childbirth. To note, the patient shows no signs of distress while sitting in the bed and VS stable. MD notified.
[2025-04-23 21:43] LABS: Mucous, Urine 0 SEEN /hpf (<or=2+); Red Blood Cells-Urine 0 SEEN /hpf (0-5)
[2025-04-23 21:44] LABS: Color, Urine Yellow (Yellow); Glucose, Dipstick Normal (Normal); Ketone-Dipstick Negative (Negative); Leukocyte Esterase-Dipstick 100 /ul (Negative); Nitrite-Dipstick Negative (Negative); Occult Blood-Urine Negative /ul (Negative); Protein-Dipstick Negative (Negative); Specific Gravity, Urine 1.010 (1.002-1.030); Urine Bilirubin Dipstick Negative (Negative)
[2025-04-23 21:45] LABS: Hematocrit 37.9 % (37-47); Hemoglobin 12.9 g/dL (12.0-15.0); Immature Granulocytes Count 0.050 X10^3/uL (0.0-0.0); Mean Corp Hgb Conc 34.0 g/dL (32-36); Mean Corpuscular Volume 93.1 fL (81-99); Mean Platelet Vol. 9.4 fl (6.2-12.0); NRBC Flagged by Analyzer 0 % (0-5); Platelet Count 285 K/mm3 (150-450); RBC Distribution Width CV 12.8 % (11.6-14.6); RBC Distribution Width SD 43.8 fl (35.1-43.9); Red Blood Count 4.07 M/mm3 (4.2-5.4); White Blood Count 11.7 K/mm3 (4.4-11.0)
[2025-04-23 22:06] LABS: Squamous Epithelial Cells - UA 0-5 SEEN /hpf (5-10)
[2025-04-23 22:24] LABS: Anion Gap 8 (5-15); BUN 4 mg/dL (4-19); BUN/Creat Ratio 5.0 RATIO (10-20); Calcium,Total 8.7 mg/dL (7.6-11.0); Carbon Dioxide 29.3 mmol/L (21.0-32.0); Chloride 104 mmol/L (98-108); Estimated Creatinine Clearance 90.66 ml/min (50-250); Glucose 79 mg/dL (70-99); Potassium 3.6 mmol/L (3.3-5.1)
--- NOTE | 2025-04-23 22:24 | ED.VIS.FEGU ---
HPI HPI - Female History of Present Illness Chief Complaint: Female C/O Detail of Chief Complaint: Pelvic pain and discharge Informant: patient Pain Pain: Positive for Pelvic Pain Onset: Days (2-3) Context: Sudden Onset Timing: Continuous and Waxes and wanes Quality: Positive for - (Pain) Location: - (Pelvic area) Current Severity: Moderate Maximum Severity: Severe Worsened by: - (Nothing) Relieved by: - (Nothing) Bleeding Issue: Negative for Vaginal bleeding Vaginal Discharge Onset: Days Associated Symptoms Associated Symptoms: Negative for Dysuria, Frequency, Urgency, Hematuria or Missed Period Last known menstrual period: Status post hysterectomy 6 weeks ago Narrative Narrative: Patient is a 45-year-old woman. She presents because of pelvic pain and claims that her stitches are coming out. She states when she wipes after using the restroom she noticed her stitches. She had a vaginal hysterectomy performed by Dr. Stephy Simpson 6 weeks ago. She was seen by Dr. Stephy Simpson yesterday and placed on Flagyl for infection. She presents because of increased pain. She localized the pain to the suprapubic area. She denies dysuria, frequency, urgency or hematuria. She reports subjective fever. She has had no chills. She denies nausea, vomiting or diarrhea. She was prescribed metronidazole. Prior similar symptoms: Yes Recent Illness/Hospitalization: Yes [facility] Medical History Shortness of breath on exertion Adenomyosis Post endometrial ablation syndrome Opiate dependence Desire for detoxification Substance abuse Congestive heart failure (CHF) Marijuana use Wears partial dentures Hepatitis Smoker History of echocardiogram History of stress test Cardiology follow-up encounter History of CHF (congestive heart failure) Esophageal tear Anxiety Home Medications ?Medication ?Instructions ?Recorded ?Last Taken ?Type trazodone 100 mg tablet 100 mg PO QHS sleep 01/03/17 03/14/25 History inhalational spacing device 10/09/23 Unknown History (BreatheRite MDI Spacer) albuterol sulfate 90 mcg/actuation 2 puff inhalation Q4H PRN PRN 12/06/24 Unknown History aerosol inhaler wheezing ondansetron HCl 4 mg tablet 4 mg PO TID PRN PRN nausea/vomiting 12/06/24 12/06/24 History acetaminophen 500 mg tablet 1,000 mg (2 x 500 mg) PO Q6H PRN 03/15/25 Unknown Rx (Acetaminophen Extra Strength) fever or pain 20 days #90 tabs ibuprofen 600 mg tablet 600 mg PO Q6H PRN Pain 20 days #60 03/15/25 Unknown Rx TABLETS alprazolam 2 mg tablet 2 mg PO BID PRN 04/23/25 Unknown History metronidazole 500 mg tablet 500 mg PO TID 04/23/25 Unknown History naproxen 500 mg tablet 500 mg PO BID #10 tabs 04/23/25 Unknown Rx Allergy/AdvReac Type Severity Reaction Status Date / Time escitalopram (From Lexapro) Allergy Other Verified 04/23/25 21:08 lamotrigine (From Lamictal) Allergy Hives Verified 04/23/25 21:08 nitrofurantoin (From Allergy Unknown Verified 04/23/25 21:08 Macrobid) nitrofurantoin Allergy Unknown Verified 04/23/25 21:08 macrocrystalline (From Macrobid) codeine AdvReac Nausea Verified 04/23/25 21:08 Family History Mother Anxiety Hypertension High cholesterol Diabetes Depression Father Hypertension Surgical History Hx of hysterectomy with oophorectomy Hx of excision of mass History of tubal ligation History of lumpectomy of right breast History of repair of rotator cuff Hx of surgical procedure Hx of removal of ovary History of tonsillectomy and adenoidectomy Social History household members: family housing: house Smoking Status: Current every day smoker tobacco type: cigarettes substance use type: marijuana additional social history: pt does not vape, does not take aspirin, pt does report using marijuana daily,does uses edibles on occassion, does use ibuprofen as needed. ROS ROS ED Constitutional Constitutional ED: Reports fever(s) and subjective; Denies chills or sweats Cardiovascular Cardiovascular: Denies chest pain, palpitations or racing heartbeat Respiratory/Chest Respiratory/Chest: Denies cough, dyspnea or dyspnea on exertion Gastrointestinal Gastrointestinal: Reports abdominal pain; Denies constipation, diarrhea, melena, nausea or vomiting Genitourinary Genitourinary ED: Denies dysuria, hematuria or urinary frequency Musculoskeletal Musculoskeletal: Denies arthralgias, myalgias or neck pain Integumentary Denies rash Neurologic Neurologic: Denies paresthesias or weakness Hematologic/Lymphatic Hematologic/Lymphatic: Denies easy bleeding or easy bruising EXAM Physical Exam Const Vital Signs: 04/23/25 21:08 04/23/25 21:19 Temperature 97 F L Temperature Source Temporal Pulse Rate 62 Respiratory Rate 15 Respiratory Effort Normal Non-Labored Respiratory Pattern Normal Blood Pressure 143/80 H Blood Pressure Mean 101 Pulse Ox 100 Oxygen Delivery Method Room Air Positive well nourished and well developed Constitutional Narrative: Patient has tobacco to her breath and clothing. She does not admit to smoking before coming in. Her blood pressure is slightly elevated. General Appearance ED: well developed HEENT HEENT Narrative: HEENT is grossly unremarkable Eyes PERRL and EOMs intact bilaterally General Eye ED: Negative for pale conjunctiva or scleral icterus Chest Wall inspection of chest normal and palpation of chest normal Resp normal respiratory effort and clear to auscultation bilaterally Cardio regular rate, regular rhythm, S1 normal heart sound, no murmurs and no JVD GI normal to inspection, nondistended, normoactive bowel sounds, soft to palpation, non-distended and no masses; Negative for non-tender GI Narrative: Patient has tenderness in the suprapubic region right and left. Narrative: Since pelvic exam was performed by her contact printer dry film yesterday this was not repeated. Back/Spine no CVA tenderness Extremity normal to inspection and full ROM Neuro oriented x3 and CN's II-XII intact bilaterally Sensorium / Orientation: alert Psych Mood & Affect: depressed Skin no rashes or lesions noted and no wounds MDM MDM MDM Narrative Medical decision making narrative: With patient reporting increased pain and pain that is quite significant and out of proportion to light palpation of the skin. Will obtain blood work and UA. Patient's white count was elevated. In light of this we will obtain CT of the pelvis because of her increased pain and pain that in my opinion is out of proportion to her reported findings. History & Record Review Additional record(s) reviewed:: Prior outpatient record ([facility]) and Prior labs Lab Data Attestation: I reviewed the patient's lab results. Lab results narrative: White count is elevated 11.7 thousand. There is no shift. Electrolyte panel is normal. Urinalysis is negative. Labs: Laboratory Results - last 24 hr 04/23/25 04/23/25 21:30 21:35 WBC 11.7 H RBC 4.07 L Hgb 12.9 Hct 37.9 MCV 93.1 MCH 31.7 MCHC 34.0 RDW Std Deviation 43.8 RDW Coeff of Denys 12.8 Plt Count 285 MPV 9.4 Immature Gran % (Auto) 0.400 Neut % (Auto) 58.5 Lymph % (Auto) 29.4 [place] % (Auto) 7.1 Eos % (Auto) 3.9 Baso % (Auto) 0.7 Absolute Neuts (auto) 6.8 Absolute Lymphs (auto) 3.42 Nucleated RBC % 0 Sodium 141 Potassium 3.6 Chloride 104 Carbon Dioxide 29.3 Anion Gap 8 BUN 4 Creatinine 0.72 Estim Creat Clear Calc 90.66 Est GFR (MDRD) Non-Af 106 BUN/Creatinine Ratio 5.0 L Glucose 79 Calcium 8.7 Urine Color Yellow Urine Clarity Clear Urine pH 6.5 Ur Specific [place] 1.010 Urine Protein Negative Urine Glucose (UA) Normal Urine Ketones Negative Urine Occult Blood Negative Urine Nitrite Negative Urine Bilirubin Negative Urine Urobilinogen Normal Ur Leukocyte Esterase 100 H Urine RBC 0 SEEN Urine WBC 0-5 SEEN Ur Squamous Epith Cells 0-5 SEEN Urine Bacteria RARE Urine Mucus 0 SEEN Radiography Diagnostic Testing: Clinical Impression(s) from Imaging Studies Pelvis CT 04/23/25 21:25 IMPRESSION: 1. Postoperative changes of hysterectomy. No unexpected findings. 2. No drainable fluid collection/abscess or free air within the pelvis. 3. Thickening of the urinary bladder; correlate clinically for possible cystitis. 4. Small simple appearing right ovarian cyst/dominant follicle measuring 2.6 cm. Reading Location: [id number] CT of the pelvis reveals postoperative changes due to hysterectomy and no unexpected findings. There is no fluid collection noted or air or concern for abscess. There was thickening of the urinary bladder. In light of a normal UA this would rule out UTI. Patient may have a small right ovarian cyst. Ovary is slightly enlarged on that side. Unlikely this is a torsion. Patient has no guarding or peritoneal findings. She has pain to light touch of her skin. Discharge Plan Triage Chief Complaint: Female C/O ED Provider: Ronak Perea Dx/Rx/DC Orders Clinical Impression: Pelvic infection, Cyst of right ovary, Depression Instructions: Bacterial Vaginosis, ED Ovarian Cyst Prescriptions: New naproxen 500 mg tablet 500 mg PO BID Qty: 10 0RF No Action trazodone 100 MG tablet 100 mg PO QHS (DME) BreatheRite MDI Spacer Spacer MISCELLANEOUS X1 ondansetron HCl 4 mg tablet 4 mg PO TID PRN PRN (Reason: nausea/vomiting) albuterol sulfate 90 mcg/actuation HFA aerosol inhaler 2 puff inhalation Q4H PRN PRN (Reason: wheezing) Patient Comments: has not used since she had pneumonia in summer 2023 acetaminophen [Acetaminophen Extra Strength] 500 mg tablet 1,000 mg PO Q6H PRN (Reason: fever or pain) 20 Days Qty: 90 0RF ibuprofen 600 mg tablet 600 mg PO Q6H PRN (Reason: Pain) 20 Days Qty: 60 1RF alprazolam 2 mg tablet 2 mg PO BID PRN metronidazole 500 mg tablet 500 mg PO TID Primary Care Provider: Tamika Mario Referrals: Tamika Mario MD [Primary Care Provider, Internal Medicine] Stephy Simpson MD [Med Staff - Active Staff, Obstetrics-Gynecology (OBGYN)] - 3-5 Days suture removal Print Language: Sinhala Disposition Disposition: Home, Self Care
[2025-04-23 22:34] VITALS: BP 136/93; PULSE 60; RESP 16; TEMP 36.6; O2SAT 95
--- NOTE | 2025-04-23 22:34 | ED.RN ---
This RN went into the patient's room to discharge the patient. The patient was laying in the bed with no signs of distress, VS stable as charted in the dispo documentation. However, the patient stated I have never been to a [facility]. This RN asked for the patient to elaborate, asking if this RN did anything to upset the patient. The patient stated no, you've been fine but the doctor was so rude when he walked out. This RN asked the patient what the doctor said and how he was rude to her. The patient stated, well he said the scan showed a cyst and that he was giving me the appropriate treatment of an anti inflammatory but I don't understand how he thinks toradol and naproxen will do anything for my pain. This RN explained to the patient that a full workup was done and an ovarian cyst was found and that this was the appropriate treatment and asked if the doctor did anything that was rude, the patient could not give any examples of Dr. Perea being rude, instead the patient restated well he just doesn't understand that naproxen won't do anything. I just don't want to be in pain anymore and I really don't want any narcotics because I don't like how they make me feel but does he really think that naproxen will do anything, and I am not asking for any narcotics but isn't there something else he can give me for pain that is not a narcotic? This RN educated the patient can take the prescribed medication and this RN gave the patient examples of other ways to treat the patient's pain at home and this RN encouraged the patient to follow up with Dr. Simpson who performed the surgery. The patient stated, I was just there yesterday but I came here tonight because the pain was too bad and I don't understand why you guys cannot give me anything else that is not naproxen and toradol. This RN apologized for the patient being in pain and encouraged the patient to follow up with Dr. Simpson in the morning.
== END 2025-04-23 22:34 | disposition home or self-care (01) ==
PROVIDERS: Emergency Provider Emergency Medicine; PCP Internal Medicine; Visit Provider Emergency Medicine
DX: N76.0 Acute vaginitis (principal); N83.291 Other ovarian cyst, right side; F32.A Depression, unspecified; F17.210 Nicotine dependence, cigarettes, uncomplicated; Z90.710 Acquired absence of both cervix and uterus; Z90.721 Acquired absence of ovaries, unilateral
CPT/HCPCS: 72193; 80048; 81001; 85025; 96374; 99284; Q9967; A4216

== ENCOUNTER 2025-06-20 21:08 | Emergency (ER) | payer MEDICAID, SELFPAY ==
[2025-06-20 21:11] VITALS: BP 136/86; PULSE 69; RESP 16; TEMP 36.5; O2SAT 100; BMI 21.2
--- OUTSIDE RECORDS SUMMARY | 2025-06-20 21:41 | XMS RPT_ITS | CCD ---
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 abdominopelvic wall are unremarkable. IMPRESSION: 1. Enlarged right ovary containing multiple cystic lesions, measuring up to 3.3 cm, which may be within normal limits for patient of this age. Consider further evaluation with pelvic ultrasound as clinically indicated. 2. Moderate volume of free pelvic fluid, particularly on the right. Interpreted by: Marta Jensen Preliminary Report By: Marta Jensen Electronically signed By Marta Jensen Dictated Date: 04/25/2025 5:42:32 PM Prelim Date: 04/25/2025 6:02:38 PM Sign Date: 04/25/2025 6:02:38 PM Ordering Provider: JUAN MIGUEL MANLEY Normal [facility] LABORATORYOrdered By: SYSTEM SYSTEM on 04-25-2025 Basophils (Bld) [#/Vol] 0.1 103/mcL Normal 0.0 - 0.3 10^3/mcL AO Workflow SS Basophils/100 WBC (Bld) 0.6 % Normal 0.0 - 2.5 % AO Workflow SS Calcium [Mass/Vol] 8.5 mg/dL Normal 8.4 - 10. 2 mg/dL AO ADM SS Chloride [Moles/Vol] 105 mmol/L Normal 98 - 10 7 mmol/L AO ADM SS CO2 [Moles/Vol] 28 mmol/L Normal 22 - 29 mmol/L AO ADM SS Creatinine [Mass/Vol] 0.70 mg/dL Normal 0.51 - 0.95 mg/dL AO ADM SS Electrolyte Balance 7.0 mEq/L Normal 4.0 - 15 .0 mEq/L AO ADM SS Eosinophil, Absolute 0.0 103/mcL Normal 0.0 - 0 .7 10^3/mcL AO Workflow SS Eosinophils/100 WBC (Bld) 0.3 % Normal 0.0 - 6.0 % AO Workflow SS Erythrocyte distribution width (RBC) [Ratio] 13.6 % Normal 11.5 - 15.5 % AO Workflow SS GLOMERULAR FILTRATION RATE/1.73 SQ M.PREDICTED:ARVRAT:PT :SER/PLAS/BLD:QN:CREA TININE-BASED FORMULA (CKD-EPI 2020) 110 ml/min/1.73sqm Invalid Interpretation Code AO Chemistry S [...] to calculate the eGFR results. Glucose [Mass/Vol] 114 mg/dL High 70 - 105 mg/dL AO ADM SS Hematocrit (Bld) [Volume fraction] 38.8 % Normal 34.0 - 46.0 % AO Workflow SS Hemoglobin (Bld) [Mass/Vol] 13.4 G/dL Normal 12.0 - 16.0 G/dL AO Workflow SS Lymphocytes (Bld) [#/Vol] 1.4 103/mcL Normal 0.9 - 4.3 10^3/mcL AO [...] Monocyte distribution width Auto (Bld) [Entitic vol] 16.89 1 Normal 0.00 - 20.00 AO Workflow SS Comment on above: Result Comment: For ED adult patients suspected of sepsis, MDW<=20.0 does not rule out sepsis or risk of sepsis Monocytes (Bld) [#/Vol] 0.4 103/mcL Normal 0.1 - 1.4 10^3/mcL AO Workflow SS Monocytes/100 WBC (Bld) 4.1 % Normal 2.0 - 13.0 % AO Workflow SS Neutrophils (Bld) [#/Vol] 8.7 103/mcL High 2.3 - 8.1 10^3/mcL AO Workflow SS Neutrophils/100 WBC (Bld) 81.7 % High 50.0 - 75.0 % AO Workflow SS Platelet mean volume (Bld) [Entitic vol] 7.3 fL Normal 6.6 - 10.5 fL AO Workflow SS Platelets (Bld) [#/Vol] 290 103/mcL Normal 150 - 450 10^3/mcL AO Workflow SS Potassium [Moles/Vol] 3.7 mmol/L Normal 3.5 - 5.1 mmol/L AO ADM SS RBC (Bld) [#/Vol] 4.23 106/mcL Normal 4.10 - 5.3 0 10^6/mcL AO Workflow SS Sodium [Moles/Vol] 140 mmol/L Normal 136 - 145 mmol/L AO ADM SS Urea nitrogen [Mass/Vol] 5 mg/dL Low 7 - 18 mg/dL AO ADM SS Urea nitrogen/Creatinine [Mass ratio] 7 ratio Normal 7 - 27 ratio AO ADM SS WBC (Bld) [#/Vol] 10.6 103/mcL Normal 4.5 - 10.8 10^3/mcL AO Workflow SS LABORATORYOrdered By: Jorge Luis azar on 04-25-2025 Color (U) Yellow (04/25/25 5:27 PM) Normal Yellow AO Auto Urine SS Glucose (U) [Mass/Vol] Negative Normal Negative AO Auto Urine SS Ketones Ql (U) Negative Normal Negative AO Auto Ur ine SS UA Appear Clear (04/25/25 5:27 PM) Normal Clear AO Auto Urine SS UA Bili Small *ABN* (04/25/25 5:27 PM) Invalid Interpretation Code Negative AO Auto Urine SS UA Blood Negative (04/25/25 5:27 PM) Normal Negative AO Auto Urine SS UA Leuk Est Negative (04/25/25 5:27 PM) Normal Negative AO Auto Urine SS UA Nitrite Negative (04/25/25 5:27 PM) Normal Negative AO Auto Urine SS UA pH 8.0 (04/25/25 5:27 PM) Normal 5.0 - 8.0 AO Auto Urine SS UA Protein Trace mg/dL Normal Negative AO Auto Urine SS UA Spec Grav 1.020 (04/25/25 5:27 PM) Normal 1.015-1.025 AO Auto Urine SS UA Specimen Type Clean Catch (04/25/25 5:27 PM) Normal AO Auto Urine SS UA Urobilinogen 0.2 E.U./dL Normal 0.2-1.0 AO Auto Urine SS UAon 04-25-2025 Color (U) Yellow Normal Yellow [facility] Comment on above: Performed By: #### C ALL NICHOLAS MDW, GFR, ADIFF, BMP #### [address] [address] Glucose (U) [Mass/Vol] Negative Normal Negative [facility] Comment on above: Performed By: #### C ALL NICHOLAS MDW, GFR, ADIFF, BMP #### [address] [address] Ketones Ql (U) Negative Normal Negative [facility] Comment on above: Performed By: #### C ALL NICHOLAS MDW, GFR, ADIFF, BMP #### [address] [address] UA Appear Clear Normal Clear [facility] Comment on above: Performed By: #### C LAL NICHOLAS MDW, GFR, ADIFF, BMP #### [address] [address] UA Bili Small Abnormal Negative [facility] Comment on above: Performed By: #### C ALL NICHOLAS MDW, GFR, ADIFF, BMP #### [address] [address] UA Blood Negative Normal Negative [facility] Comment on above: Performed By: #### C CRISTOPHER, CHANCE CARRIZALES, GFR, ADIFF, BMP #### [address] [address] UA Leuk Est Negative Normal Negative [facility] Comment on above: Performed By: #### C CRISTOPHER, CHANCE CARRIZALES, GFR, ADIFF, BMP #### [address] [address] UA Nitrite Negative Normal Negative [facility] Comment on above: Performed By: #### C ALL NICHOLAS MDW, GFR, ADIFF, BMP #### [address] [address] UA pH 8.0 Normal 5.0 - 8.0 [facility] Comment on above: Performed By: #### C CRISTOPHER, CHANCE CARRIZALES, GFR, ADIFF, BMP #### [address] [address] UA Protein Trace Normal Negative [facility] Comment on above: Performed By: #### C ALL NICHOLAS MDW, GFR, ADIFF, BMP #### [address] [address] UA Spec Grav 1.020 Normal 1.015-1.025 [facility] Comment on above: Performed By: #### C CRISTOPHER, CHANCE CARRIZALES, GFR, ADIFF, BMP #### [address] [address] UA Specimen Type Clean Catch Normal [facility] Comment on above: Performed By: #### C ALL NICHOLAS MDW, GFR, ADIFF, BMP #### [address] [address] UA Urobilinogen 0.2 E.U./dL Normal 0.2-1.0 [facility] Comment on above: Performed By: #### C BC, ANEU, MDW, GFR, ADIFF, BMP #### [facility] [place] [facility] [address], [place] [address] US PELVIS NON-OB COMPLETEon 04-25-2025 US PELVIS NON-OB COMPLETE ORIGINAL EXAMINATION: PELVIC ULTRASOUND 04/25/2025 6:26 pm COMPARISON: CT abdomen pelvis from same day, pelvic ultrasound 02/26/2025 HISTORY: ORDERING SYSTEM PROVIDED HISTORY: Reason for Exam: pelvic pain hysterectomy 3 weeks ago. All images are recorded and archived. FINDINGS: Transabdominal sonographic examination of the pelvis was performed. The patient unable to tolerate transvaginal examination. The uterus is surgically absent Right ovary: The right ovary measures 5.1 x 3.7 x 4.1 cm. There is positive arterial and venous Doppler flow and waveforms to the right ovary. Normal follicular changes are noted with a dominant follicle measuring 2.5 cm. No adnexal mass is seen. Left ovary: The left ovary is surgically absent. Free fluid is present in the right aspect of the pelvis which was also present on same day CT. IMPRESSION: No acute sonographic abnormality. Free fluid in the right aspect of the pelvis could be physiologic or postoperative in nature. The uterus and left ovary are surgically absent. Preliminary Report was Dictated by a Resident I have personally reviewed the images of this examination and agree with the resident's findings and interpretation. Ramakrishna Vasquez M.D. Interpreted by: Ramakrishna Vasquez Preliminary Report By: Werner Flores Electronically signed By Ramakrishna Vasquez Dictated Date: 04/25/2025 6:40:20 PM Prelim Date: 04/25/2025 6:45:24 PM Sign Date: 04/25/2025 8:53:41 PM Ordering Provider: JUAN MIGUEL MANLEY Normal [facility] Basic Metabolic Profile (BMP )on 04-23-2025 BUN/CRE 5.0 RATIO Low 04-15 [facility] Comment on above: Performed By: #### L 501.9100, L505.5000, L500.4050, L700.6800, L100.0100 #### [facility] [address] [place], [address] Calcium [Mass/Vol] 8.7 mg/dL Normal 7.6-11.0 [facility] Comment on above: Performed By: #### L 501.9100, L505.5000, L500.4050, L700.6800, L100.0100 #### [facility] [address] [place], [address] Chloride [Moles/Vol] 104 mmol/L Normal 98-108 [facility] Comment on above: Performed By: #### L 501.9100, L505.5000, L500.4050, L700.6800, L100.0100 #### [facility] [address] [place], [address] CO2 [Moles/Vol] 29.3 mmol/L Normal 21.0-32.0 [facility] Comment on above: Performed By: #### L 501.9100, L505.5000, L500.4050, L700.6800, L100.0100 #### [facility] [address] [place], [address] Creatinine [Mass/Vol] 0.72 mg/dL Normal 0.70-1.20 [facility] Comment on above: Performed By: #### L 501.9100, L505.5000, L500.4050, L700.6800, L100.0100 #### [facility] [address] [place], [address] ECRCL 90.66 ml/min Normal 50-250 [facility] Comment on above: Performed By: #### L 501.9100, L505.5000, L500.4050, L700.6800, L100.0100 #### [facility] [address] [place], [address] GAP 8 Normal 5-15 [facility] Comment on above: Performed By: #### L 501.9100, L505.5000, L500.4050, L700.6800, L100.0100 #### [facility] [address] [place], [address] GFR/1.73 sq M.predicted among non-blacks MDRD (S/P/Bld) [Vol rate/Area] 106 mL/min/{1.73_m2} Normal >60 [facility] Comment on above: Result Comment: mL/m in/1.73m2 CKD-EPI Creatinine Equation (2020) Performed By: #### L 501.9100, L505.5000, L500.4050, L700.6800, L100.0100 #### [facility] [address] [place], [address] Glucose [Mass/Vol] 79 mg/dL Normal 70-99 [facility] Comment on above: Performed By: #### L 501.9100, L505.5000, L500.4050, L700.6800, L100.0100 #### [facility] [address] [place], [address] Potassium [Moles/Vol] 3.6 mmol/L Normal 3.3-5.1 [facility] Comment on above: Performed By: #### L 501.9100, L505.5000, L500.4050, L700.6800, L100.0100 #### [facility] [address] [place], [address] Sodium [Moles/Vol] 141 mmol/L Normal 133-145 [facility] Comment on above: Performed By: #### L 501.9100, L505.5000, L500.4050, L700.6800, L100.0100 #### [facility] [address] [place], [address] Urea nitrogen [Mass/Vol] 4 mg/dL Normal 4-19 [facility] Comment on above: Performed By: #### L 501.9100, L505.5000, L500.4050, L700.6800, L100.0100 #### [facility] [address] [place], [address] CBC W/Diff, Automatedon 03-28 Absolute Lymph 3.42 X10 3/uL Normal 0.83-4.51 [facility] Comment on above: Performed By: #### L 100.0100 ####[facility] [address] [place], [address] Absolute Neut 6.8 X10 3/uL Normal 2.0-7.7 [facility] Comment on above: Performed By: #### L 100.0100 ####[facility] [address] [place], [address] Basophils/100 WBC (Bld) 0.7 % Normal 0-1 [facility] Comment on above: Performed By: #### L 100.0100 ####[facility] [address] [place], [address] Eosinophils/100 WBC (Bld) 3.9 % Normal 0-5 [facility] Comment on above: Performed By: #### L 100.0100 ####[facility] [address] [place], [address] Erythrocyte distribution width (RBC) [Ratio] 12.8 % Normal 11.6-14.6 [facility] Comment on above: Performed By: #### L 100.0100 ####[facility] [address] [place], [address] Hematocrit (Bld) [Volume fraction] 37.9 % Normal 37-47 [facility] Comment on above: Performed By: #### L 100.0100 ####[facility] [address] [place], [address] Hemoglobin (Bld) [Mass/Vol] 12.9 g/dL Normal 12.0-15.0 [facility] Comment on above: Performed By: #### L 100.0100 ####[facility] [address] [place], [address] IG% 0.400 Normal 0.0-0.9 [facility] Comment on above: Result Comment: IG% - Immature Granulocytes (promyelocytes, myelocytes and metamyelocytes) > 1% indicates that a LEFT SHIFT is Present. Performed By: #### L 100.0100 ####[facility] [address] [place], [address] Lymphocytes/100 WBC (Bld) 29.4 % Normal 19-41 [facility] Comment on above: Performed By: #### L 100.0100 ####[facility] [address] [place], [address] MCH (RBC) [Entitic mass] 31.7 pg Normal 27.0-32.0 [facility] Comment on above: Performed By: #### L 100.0100 ####[facility] [address] [place], [address] MCHC (RBC) [Mass/Vol] 34.0 g/dL Normal 32-36 [facility] Comment on above: Performed By: #### L 100.0100 ####[facility] [address] [place], [address] MCV (RBC) [Entitic vol] 93.1 fL Normal 81-99 [facility] Comment on above: Performed By: #### L 100.0100 ####[facility] [address] [place], [address] Monocytes/100 WBC (Bld) 7.1 % Normal 0-10 [facility] Comment on above: Performed By: #### L 100.0100 ####[facility] [address] [place], [address] Neutrophils/100 WBC (Bld) 58.5 % Normal 47-70 [facility] Comment on above: Performed By: #### L 100.0100 ####[facility] [address] [place], [address] Nucleated RBC (Bld) [#/Vol] 0 10*3/uL Normal 0-5 [facility] Comment on above: Performed By: #### L 100.0100 ####[facility] [address] [place], [address] Platelet mean volume (Bld) [Entitic vol] 9.4 fL Normal 6.2-12.0 [facility] Comment on above: Performed By: #### L 100.0100 ####[facility] [address] [place], [address] Platelets (Bld) [#/Vol] 285 10*3/uL Normal 150-450 [facility] Comment on above: Performed By: #### L 100.0100 ####[facility] [address] [place], [address] RBC (Bld) [#/Vol] 4.07 10*6/uL Low 4.2-5.4 [facility] Comment on above: Performed By: #### L 100.0100 ####[facility] [address] [place], [address] RDW SD 43.8 fl Normal 35.1-43.9 [facility] Comment on above: Performed By: #### L 100.0100 ####[facility] [address] [place], [address] WBC (Bld) [#/Vol] 11.7 10*3/uL High 4.4-11.0 [facility] Comment on above: Performed By: #### L 100.0100 ####[facility] [address] [place], [address] Emergency Department Summary on 04-23-2025 Emergency Department Summary [facility] Medical Records Department [address] [place] [address] Emergency Department Summary 04/23/25 MR#: [id number] Acct: [id number] Name: PAT MEDINA Rep #: [id number] : 1980 45 From: Ronak Perea MD PCP: Dr. Maile Norman MD Status:REG ER Location: ED HPI HPI - Female History of Present Illness Chief Complaint: Female C/O Detail of Chief Complaint: Pelvic pain and discharge Informant: patient Pain Pain: Positive for Pelvic Pain Onset: Days (2-3) Context: Sudden Onset Timing: Continuous and Waxes and wanes Quality: Positive for - (Pain) Location: - (Pelvic area) Current Severity: Moderate Maximum Severity: Severe Worsened by: - (Nothing) Relieved by: - (Nothing) Bleeding Issue: Negative for Vaginal bleeding Vaginal Discharge Onset: Days Associated Symptoms Associated Symptoms: Negative for Dysuria, Frequency, Urgency, Hematuria or Missed Period Last known menstrual period: Status post hysterectomy 6 weeks ago Narrative Narrative: Patient is a 45-year-old woman. She presents because of pelvic pain and claims that her stitches are coming out. She states when she wipes after using the restroom she noticed her stitches. She had a vaginal hysterectomy performed by Dr. Stephy Simpson 6 weeks ago. She was seen by Dr. Stephy Simpson yesterday and placed on Flagyl for infection. She presents because of increased pain. She localized the pain to the suprapubic area. She denies dysuria, frequency, urgency or hematuria. She reports subjective fever. She has had no chills. She denies nausea, vomiting or diarrhea. She was prescribed metronidazole. Prior similar symptoms: Yes Recent Illness/Hospitalizati on: Yes PFSH PFSH Medical History Shortness of breath on exertion Adenomyosis Post endometrial ablation syndrome Opiate dependence Desire for detoxification Substance abuse Congestive heart failure (CHF) Marijuana use Wears partial dentures Hepatitis Smoker History of echocardiogram History of stress test Cardiology follow-up encounter History of CHF (congestive heart failure) Esophageal tear Anxiety Home Medications ???Medication ???Instructions ???Recorded ???Last Taken ???Type trazodone 100 mg tablet 100 mg PO QHS sleep 01/03/1703/14 History inhalational spacing device 10/09/23 Unknown History (BreatheRite MDI Spacer) albuterol sulfate 90 mcg/actuation 2 puff inhalation Q4H PRN PRN Unknown History aerosol inhaler wheezing ondansetron HCl 4 mg tablet 4 mg PO TID PRN PRN nausea/vomitin g 12/06/24 12/06/24 History acetaminophen 500 mg tablet 1,000 mg (2 x 500 mg) PO Q6H PRN 0 03/15/25 Unknown Rx (Acetaminophen Extra Strength) fever or pain 20 days #90 tabs ibuprofen 600 mg tablet 600 mg PO Q6H PRN Pain 20 days #60 03/15/25 Unknown Rx TABLETS alprazolam 2 mg tablet 2 mg PO BID PRN 04/23/25 Unknown H istory metronidazole 500 mg tablet 500 mg PO TID 04/23/25 Unknown His tory naproxen 500 mg tablet 500 mg PO BID #10 tabs 04/23/25 Un known Rx Allergy/AdvReac Type Severity Reaction Status Date / Time escitalopram (From Lexapro) Allergy Other Verified 04/23/25 21:08 lamotrigine (From Lamictal) Allergy Hives Verified 04/23/25 21:08 nitrofurantoin (From Allergy Unknown Verified 04/23/25 21:08 Macrobid) nitrofurantoin Allergy Unknown Verified 04/23/25 21:08 macrocrystalline (From Macrobid) codeine AdvReac Nausea Verified 04/23/25 21:08 Family History Mother Anxiety Hypertension High cholesterol Diabetes Depression Father Hypertension Surgical History Hx of hysterectomy with oophorectomy Hx of excision of mass History of tubal ligation History of lumpectomy [...] needed. ROS ROS ED Constitutional Constitutional ED: Reports fever(s) and subjective; Denies chills or sweats Cardiovascular Cardiovascular: Denies chest pain, palpitations or racing heartbeat Respiratory/Chest Respiratory/Chest: Denies cough, dyspnea or dyspnea on exertion Gastrointestinal Gastrointestinal: Reports abdominal pain; Denies constipation, diarrhea, melena, nausea or vomiting Genitourinary Genitou (more content not included)... Normal [facility] Pelvis WITH IV Contraston Pelvis WITH IV Contrast [facility] [address] [place] [address] Pelvis WITH IV Contrast MR#: [id number] Acct: [id number] Name: PAT MEDINA Rep #: [id number] : 1980 F 45 From: Rogerio Jones MD PCP: Dr. Maile Norman MD Status: REG ER Study: Pelvis WITH IV Contrast Date of Exam: 04/23/25 Exam# [id number] Ordering Dr: Ronak Perea MD PROCEDURE: CT PELVIS WITH IV CONTRAST 04/23/2025 REASON FOR EXAM: PELVIC PAIN, STATUS POST HYSTERECTOMY 6 WEEKS AGO, FEVER AND C TECHNIQUE: Procedure Code: CTPELW Modality: CT Procedure: PELVIS WITH IV CONTRAST One or more dose reduction techniques were used (e.g., Automated exposure control, adjustment of the mA and/or kV according to patient size, use of iterative reconstruction technique). RADIATION DOSE SUMMARY: CTDlvol: 23.63 mGy DLP: 836.58 mGycm COMPARISON: CT abdomen/pelvis 08/26/2024. FINDINGS: Postoperative changes of hysterectomy. Grossly unremarkable appearance of the vaginal cuff. Unremarkable left ovary. Small 2.6 cm simple appearing right ovarian cyst/dominant follicle. Trace nonspecific simple appearing free fluid in the lower abdomen/pelvis. No organized drainable fluid collection/abscess or free air. Visualized bowel segments demonstrate no evidence for obstruction or active inflammatory process. Normal appendix. There is mild circumferential thickening of the urinary bladder which may represent cystitis. Visualized osseous structures are unremarkable. CT/Pelvis WITH IV Contrast IMPRESSION: 1. Postoperative changes of hysterectomy. No unexpected findings. 2. No drainable fluid collection/abscess or free air within the pelvis. 3. Thickening of the urinary bladder; correlate clinically for possible cystitis. 4. Small simple appearing right ovarian cyst/dominant follicle measuring 2.6 cm. Reading Location: [id number] CC: Dr. Maile Norman MD; Dr. Ronak Perea MD Color Dipper: Signed Normal [facility] Urinalysis, Completeon 04-23 BACTERIA RARE Normal None Seen [facility] Comment on above: Order Comment: CLEAN CATCH Performed By: #### L 400.0001 #### [facility] [address] [place], [address] EPI,SQUAMOUS 0-5 SEEN Normal 5-10 [facility] Comment on above: Order Comment: CLEAN CATCH Performed By: #### L 400.0001 #### [facility] [address] [place], [address] WBC 0-5 SEEN Normal 0-5 [facility] Comment on above: Order Comment: CLEAN CATCH Performed By: #### L 400.0001 #### [facility] [address] [place], [address] Mucus Ql (Urine sed) 0 SEEN Normal [facility] Comment on above: Order Comment: CLEAN CATCH Performed By: #### L 400.0001 #### [facility] [address] [place], [address] RBC 0 SEEN Normal 0-5 [facility] Comment on above: Order Comment: CLEAN CATCH Performed By: #### L 400.0001 #### [facility] [address] [place], [address] CNOVon 04-22-2025 CNOV Normal [facility] CNOVon 04-18-2025 CNOV Normal [facility] [facility] CNOVon 04-15-2025 CNOV Normal [facility] CNOVon 03-22-2025 CNOV Normal [facility] CNOVon 03-20-2025 CNOV Normal [facility] CNPNon 03-20-2025 CNPN Normal [facility] CNOPon 03-19-2025 CNOP Operative Note (Enc) (OBGYWM) Encounter Status:Closed by STEPHY SIMPSON on 03/19/25 Normal [facility] CNOVon 03-18-2025 CNOV Normal [facility] CNPNon 03-18-2025 CNPN Normal [facility] Bedside Glucoseon 03-15-2025 FINGERSTICK GLU 113 mg/dL High 74-106 [facility] Comment on above: Result Comment: SOFÍA GUERRERO OF PATIENT CARE PER NURSING PROTOCOL Performed By: #### L 501.080 ####[facility] [address] [facility] [place], [address] CNPNon 03-15-2025 CNPN Normal [facility] Discharge Instructionon 02-25 Discharge Instruction [facility] Medical Records Department [address] [place] [address] Instructions for Home/Discharge Instructions 03/15/25 1025 MR#: [id number] Acct: [id number] Name: PAT MEDINA Rep #: [id number] : 1980 45 From: Stephy Simpson MD PCP: Dr. Maile Norman MD Status:REG SDC Discharge Instructions DC O2, CPAP, BIPAP needs Home O2 Discharge instructions: No Dressing / Incision Discharge Activity: May Shower May resume sexual activity in: 6-8 weeks, 8 weeks and - (Nothing in your vagina for 6 weeks. No vaginal or anal intercourse for 8 weeks. No tub baths or swimming pools for 6 weeks) Dressing / Incision Call your doctor if your incision/area has: Continuous Slow Oozing and Sudden Increased Bleeding Call your doctor if you observe: Fever of 101 or Higher, Inability to urinate and Inability to have a bowel movement Cleanse incision/area with: - Follow Up Care Please Follow Up With: Stephy Simpson MD When: With my office in 1-2 and 6 weeks or as needed. Call [phone] or send a [employer] message Test Results: Test results from this visit will be discussed in further detail at your follow-up appointment, if applicable. Discharge Plan Admission Primary Reason for Your Visit: Vaginal hysterectomy Attending Provider: Stephy Simpson Primary Care Provider: Maile Norman Instructions Print Language: Uruguayan Discharge Orders/Prescriptions Prescriptions: New acetaminophen [Acetaminophen Extra Strength] 500 mg tablet 1,000 mg PO Q6H PRN (Reason: fever or pain) 20 Days Qty: 90 0RF ibuprofen 600 mg tablet 600 mg PO Q6H PRN (Reason: Pain) 20 Days Qty: 60 1RF oxycodone 5 mg tablet 5 mg PO Q8H PRN (Reason: severe pain) 7 Days Qty: 20 0RF No Action trazodone 100 MG tablet 100 mg PO QHS (DME) BreatheRite MDI Spacer Spacer MISCELLANEOUS X1 ondansetron HCl 4 mg tablet 4 mg PO TID PRN PRN (Reason: nausea/vomiting) alprazolam 0.5 mg tablet 2 mg PO BID PRN PRN (Reason: anxiety) albuterol sulfate 90 mcg/actuation HFA aerosol inhaler 2 puff inhalation Q4H PRN PRN (Reason: wheezing) Patient Comments: has not used since she had pneumonia in summer 2023 Referrals / Follow Up: Maile Norman MD [Primary Care Provider, Internal Medicine] Disposition Disposition (needs filled in before D/C Order can be placed): Home, Self Care 03/15/25 1026 Stephy Simpson MD CC: Dr. Maile Norman MD Signed [facility] MR/POSTOP.[facility] 03-15-2025 MR/POSTOP.[facility] Medical Records Department [address] [place] [address] Anesthesia Postop Eval I 03/15/25 1022 MR#: [id number] Acct: [id number] Name: PAT MEDINA Rep #: [id number] : 1980 45 From: Navjot Juarez CRNA PCP: Dr. Maile Norman MD Status:REG SD Y Race: C Location: [place] [address] Anesthesia: Postop Eval I Current Vital Signs Temperature: 97.3 F Pulse Rate: 78 Blood Pressure: 124/71 Respiratory Rate: 16 Pulse Ox: 98 Oxygen Delivery Method: Room Air Assessment Airway patent: Yes Spontaneous unlabored respirations: Yes Mental status: Awake and Calm nausea: No Vomiting: No Anesthesia Complication: No Fluid Hydration Crystalloid volume administer (ml): 1,600 Total IV fluid infused: 1,600 Progress Note Anesthesia document: Postop Eval 1 completed: Yes 03/15/25 1023 Date Navjot Zhaoignjazz Signature: Date CC: Signed Normal [facility] MR/AUYJZEZU9ic 03-15-2025 [facility] Medical Records Department [address] [place] [address] Anesthesia Postop Eval II 03/15/25 1314 MR#: [id number] Acct: [id number] Name: PAT MEDINA Rep #: [id number] : 1980 45 From: Nabeel Xiao MD PCP: Dr. Maile Norman MD Status:REG SDC Y Race: C Location: [place] [address] Anesthesia Postop Eval I Sum Postop Eval Completion status Anesthesia document: Postop Eval 1 completed: Yes Anesthesia Postop Eval I Summary Anesthesia Postop Eval I Summary: Anesthesia Postop Eval I: Assessment Summary Airway patent Yes 03/15/25 10:23 LEARNING DISABILITIES RESOURCE TEACHER.MDOT Spontaneous unlabored Yes 03/15/25 10:23 LEARNING DISABILITIES RESOURCE TEACHER.MDOT respirations Mental status Awake,Calm 03/15/25 10:23 LEARNING DISABILITIES RESOURCE TEACHER.MDOT nausea No 03/15/25 10:23 LEARNING DISABILITIES RESOURCE TEACHER.MDOT Vomiting No 03/15/25 10:23 LEARNING DISABILITIES RESOURCE TEACHER.MDOT Anesthesia Postop Eval I: Fluid Summary Crystalloid volume administer 1,600 03/15/25 10:23 LEARNING DISABILITIES RESOURCE TEACHER.MDOT (ml) Colloids volume administered ( ml) Blood Product volume administered (ml) Total IV fluid infused 1,600 03/15/25 10:23 LEARNING DISABILITIES RESOURCE TEACHER.MDOT Anesthesia Postop Eval I: Summary Notes Anesthesia Complication No 03/15/25 10:23 LEARNING DISABILITIES RESOURCE TEACHER.MDOT Anesthesia Complication Comment: Post-operative progress note Anesthesia: Postop Eval II Evaluation Mental status: Awake Pain Level: 0 nausea: No Vomiting: No 03/15/25 1315 Date Nabeel Xiao MD Cosigner Signature: Date CC: Signed Normal [facility] Operative Reporton 5 Operative Report [facility] Medical Records Department [address] [place] [id number] Operative Report 03/15/25 1026 MR#: [id number] Acct: [id number] Name: PAT MEDINA Rep #: [id number] : 1980 45 From: Stephy Simpson MD PCP: Dr. Maile Norman MD Status:[facility] Location: [place] [address] Operative Report (Standard) Operative Information Date of Procedure: 03/15/25 Pre-Operative Diagnosis: adenomyosis, deep dyspareunia, post endometrial ablation syndrome Post-Operative Diagnosis: same Surgery/Procedure Performed: TVH with partial right salpingectomy and cystoscopy teletype clerk: Yes Social Science Teacher: Zuleyka Rao Tasks completed by first press operator: Hemostasis: Tie and Retracting Additional service assistant?: No Type of Anesthesia: General RN Documented Start/Stop Times: Operation Date: 03/15/25 08:30 Case Time Into Pre-Op 03/15/25 06:37 Out of Pre-Op 03/15/25 08:37 Anesthesia Start 03/15/25 08:43 Into Room 03/15/25 08:43 Procedure Start 03/15/25 09:07 Procedure End 03/15/25 10:11 Anesthesia End 03/15/25 10:20 Out of Room 03/15/25 10:20 Procedure Start Time: 09:07 Procedure Stop Time: 10:11 Select all DRAINS/GRAFTS/IMPLANT S that apply: None Estimated Blood Loss: 20cc Fluids Replaced: 1600 cc Specimen collected: Yes Description of specimen(s) removed: uterus, cervix, partial right tube Description of surgery: The patient was taken to the operating room where she was prepped and draped in the normal sterile fashion in the dorsal lithotomy position. A weighted speculum was placed in the vagina and the anterior lip of the cervix was grasped with a Juanis clamp. The vaginal epithelium was infiltrated circumferentially around the cervix with 1% Xylocaine solution with dilute epinephrine. An incision was made around the entire cervix with a scalpel and the vaginal epithelium was dissected back with blunt and sharp dissection. The anterior colpotomy incision was made sharply. Entry into the anterior cul-de-sac was confirmed by visualization of the uterine fundus and bowel behind the uterus. The posterior colpotomy was made with the Lr scissors. The posterior peritoneum was secured to the posterior vaginal cuff with an bhyeqq-ni-jjpcd 0 Vicryl suture. The Golden retractor was placed in the posterior colpotomy incision. The uterosacral ligaments were clamped with Maged clamps transected and suture ligated on both sides and excellent hemostasis of the pedicles was noted. The cardinal ligaments were clamped transected and suture ligated. The remainder of the cardinal ligament with the uterine arteries was clamped transected and suture ligated. The utero-ovarian ligaments and tubes were clamped transected and suture ligated. The uterus was brought out through the colpotomy incision intact. The left tube and ovary appeared normal but were very high and not easily accessed. I attempted to grasp the tube with a [place] clamp and was concerned about tearing it without being able to adequately visualize it so decision was made to leave the tube. The right tube was identified with the fimbria were very high I was able to see the Filshie clips and partially clamp around the tube and Filshie clip. I did not remove the entire fimbria. The small piece of tissue was amputated and the pedicle oversewn with an 0 Vicryl tie. The pedicles were all examined again and found to be hemostatic. At this point a Lennon's culdoplasty was done with 2-0 PDS suture. Entering the posterior vaginal cuff the peritoneum was secured reefed across the peritoneum to the right uterosacral ligament, back across the peritoneum to the left uterosacral ligament and back out through the posterior vaginal wall. The vaginal cuff was then reapproximated horizontally with interrupted 0 Vicryl oifkqp-qp-vmaij sutures. The Lennon's sutures were tied down. The vaginal cuff was hemostatic and excellent support was noted. The Fang was removed and cystoscopy was performed. The bladder was intact and normal in appearance and both ureteral jets were noted. The cystoscope was removed. The vaginal sweep was completed by me. All sponge lap and needle counts were correct. Patient was awakened and taken to theher recovery room in stable condition. There were no qualified residents available for the procedure. Surgical Findings: boggy uterus, normal ovaries, right Filshie clip noted, tubes very high and against sidewall Complications Complications: No Admit VTE Documentation VTE Present on Admission: No VTE Mechan Device Prophylaxis: SCD's VTE Pharm Prophylaxis ordered?: No Reason prophylaxis not ordered: Treatment Not Indicated 03/15/25 1031 Cosigner Signature (if applicable): CC: Dr. Maile Norman MD; Dr. Stephy Simpson MD Signed Normal [facility] ,Urineon 03-15-2025 Beta HCG ( test) Ql (U) Negative [facility] Comment on above: Result Comment: Very dilute urine specimens, as indicated by a low specific gravity, may not contain energy conservation representative levels of hCG. If is still suspected, a first morning urine specimen should be collected 48 hours later and tested. Performed By: #### L 501.9100, L505.5000, L500.4050, L700.6800, L100.0100 #### [facility] [place], [address] Surgery Specimen Level Von 0 03-15-2025 Surgery Specimen Level V -------- Patient Age/Sex Location Account Attending Physician -------- PAT MEDINA 45/F [facility] [id number] Dr. Stephy Simpson MD -------- Specimen: [id number] Received: 03/15/25 Status: JEAN Bro Num: [id number] Spec Type: UTERUS Subm Dr: Dr. Stephy Simpson MD HEADER OPERATION: ERAS, total vaginal hysterectomy, partial right salpingectomy PRE-OP DIAGNOSIS: Post endometrial ablation syndrome, adenomyosis, dyspareunia TISSUE SUBMITTED: A- Uterus, cervix, partial right fallopian tube -------- MICROSCOPIC DIAGNOSIS A. Uterus, cervix, partial right fallopian tube, total vaginal hysterectomy and partial right salpingectomy: - Cervix: hyperkeratosis. - Endometrium: no endometrium observed. - Myometrium: adenomyosis, leiomyomata (1.8 cm). - Right fallopian tube: endometriosis; no fimbria observed. - synthetic resin operator consistent with IUD (gross examination only). MICROSCOPIC DESCRIPTION Slides are reviewed. GROSS DESCRIPTION A. Received in formalin labeled with the patient's name and date of . Designated as uterus, cervix, partial right fallopian tube is an 88.1 g, 7.5 x 4.7 x 4.1 cm uterus without attached adnexa. The serosa is castanon-pink with foci of erythema, a palpable leiomyoma (anterior) and two nodules on the posterior peritoneal reflection as follows: Nodule #1: 0.1 x 0.1 x 0.1 cm dark brown-black.Nodule #2: 0.2 x 0.2 x 0.1 cm castanon. The attached cervix is castanon-pink to red and wrinkled, measuring 4.2 x 3.5 cm; the 1.4 cm os is shaggy and focally probe patent. The specimen is inked as follows: Anterior-greenPosteri tr-eqmpgMjswucmckht-j range. Opening reveals a 3.2 x 0.7 cm fibrotic and stenotic, ill-defined endometrial canal devoid of identifiable endometrium, with a 0.5 x 0.5 cm firm fibrotic, central scar. The myometrium is castanon-pink and somewhat trabeculated with a 0.7 x 0.4 cm apparent cyst (posterior cornu); the myometrium measures up to 2.3 cm thick. Three intramural leiomyomas are identified, 0.5 cm to 1.8 cm. Also within the container is a 1.4 x 0.3 cm correa metallic biomedical field service engineer (grossly consistent with contraceptive device) with a minimal amount of attached, apparent fallopian tube, 0.6 x 0.3 cm. Car Repairer [place] sections are submitted as follows: A1: Anterior cervixA2: Posterior cervixA3: Anterior endomyometrium with scarA4: Posterior endomyometrium with scarA5: Posterior myometrium with apparent cyst A6: Right fallopian tube and serosal nodulesA7: Leiomyomas UT 03/15/2025 CPT:17025 -------- Patient Age/Sex Location Account Attending Physician -------- PAT MEDINA 45/F [facility] [id number] Dr. Stephy Simpson MD -------- Signed (signature on file) Dr. Saida Sexton MD 03/26/25 1353 -------- Normal [facility] Comment on above: Performed By: #### P SUV ####[facility] [address] [place], [address] CBC-Complete Blood Cnt No Di ffon 03-12-2025 Erythrocyte distribution width (RBC) [Ratio] 12.4 % Normal 11.6-14.6 [facility] Comment on above: Performed By: #### L 100.0500, BTSPAT ####[facility] [address] [place], [address] Hematocrit (Bld) [Volume fraction] 40.6 % Normal 37-47 [facility] Comment on above: Performed By: #### L 100.0500, BTSPAT ####[facility] [address] [place], [address] Hemoglobin (Bld) [Mass/Vol] 14.3 g/dL Normal 12.0-15.0 [facility] Comment on above: Performed By: #### L 100.0500, BTSPAT ####[facility] [address] [place], [address] MCH (RBC) [Entitic mass] 31.4 pg Normal 27.0-32.0 [facility] Comment on above: Performed By: #### L 100.0500, BTSPAT ####[facility] [address] [place], [address] MCHC (RBC) [Mass/Vol] 35.2 g/dL Normal 32-36 [facility] Comment on above: Performed By: #### L 100.0500, BTSPAT ####[facility] [address] [place], [address] MCV (RBC) [Entitic vol] 89.2 fL Normal 81-99 [facility] Comment on above: Performed By: #### L 100.0500, BTSPAT ####[facility] [address], [address] Platelet mean volume (Bld) [Entitic vol] 9.8 fL Normal 6.2-12.0 [facility] Comment on above: Performed By: #### L 100.0500, BTSPAT ####[facility] [address] [place], [address] Platelets (Bld) [#/Vol] 340 10*3/uL Normal 150-450 [facility] Comment on above: Performed By: #### L 100.0500, BTSPAT ####[facility] [address] [place], [address] RBC (Bld) [#/Vol] 4.55 10*6/uL Normal 4.2-5.4 [facility] Comment on above: Performed By: #### L 100.0500, BTSPAT ####[facility] [address] [place], [address] RDW SD 40.7 fl Normal 35.1-43.9 [facility] Comment on above: Performed By: #### L 100.0500, BTSPAT ####[facility] [address] [place], [address] WBC (Bld) [#/Vol] 13.7 10*3/uL High 4.4-11.0 [facility] Comment on above: Performed By: #### L 100.0500, BTSPAT ####[facility] [address] [place], [address] Magnesiumon 03-12-2025 Magnesium [Mass/Vol] 1.9 mg/dL Normal 1.5-2.2 [facility] Comment on above: Performed By: #### L 501.9100, L505.5000, L500.4050, L700.6800, L100.0100 #### [facility] [address] [place], [address] Type AND Screen - PAT ONLYon 03-12-2025 Ab SCREEN GEL Negative Normal [facility] Comment on above: Order Comment: Surge ry Date: 03/15/25Reason for Laboratory Test [id number] BSO Performed By: #### L 100.0500, BTSPAT ####[facility] [address] [place], [address] MR/PAT.ANEon 03-08-2025 MR/PAT.[facility] Medical Records Department [address] [place] [address] PAT - Anesthesia 03/08/25 1310 MR#: [id number] Acct: [id number] Name: PAT MEDINA Rep #: [id number] : 1980 45 From: Jose Lobo MD PCP: Dr. Maile Norman MD Status:PRE [facility] Y Race: C Location: [facility] Pre-Assessment Diagnosis/Proposed Procedure Planned Operative Procedure(s): TOTAL VAGINAL HYSTERECTOMY BSO POSS CYST Anesthesia History Anesthesia History - disability coordinator: Anesthesia History - disability coordinator Hx Hospitalization Yes: 11/2024 FOR DETOX 03/08/25 [...] take am of surgery PONV PONV - disability coordinator: PONV - disability coordinator Female Yes 03/08/25 12:56 HX of Motion [...] 12/16/24 11:57 Respiratory Assessment Respiratory Assessment - disability coordinator: Respiratory Tract Infection Hx - disability coordinator Hx Respiratory Tract Infection No 03/08/25 12:56 STOP Sleep Apnea STOP Sleep Apnea - disability coordinator: STOP Sleep Apnea - disability coordinator Hx Hypertension No 03/08/25 12:56 Hx Sleep [...] Tobacco Use History Tobacco Use History - disability coordinator: Tobacco Use History - disability coordinator Tobacco Use Cigarettes 08/14/24 10:57 Smoking Status Current every day smoker 03/08/25 12:56 Hx Tobacco Use Yes 03/08/25 12:56 Years Smoking Packs Smoked per Day Smoking Cessation Date was within the last 15 years Hx Smoking Cessation Date Hx Smoking Cessation Counseling Hematologic Medial History Hematologic Hx - disability coordinator: 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 Normal [facility] CNOVon 03-07-2025 CNOV Normal [facility] CNPNon 03-07-2025 CNPN Normal [facility] HISTORY PHYSICALon HISTORY PHYSICAL Normal [facility] .Auto Diffon 02-28-2025 Basophil, Absolute 0.0 10 3/mcL Normal 0.0-0.3 [facility] Comment on above: Performed By: #### U A, PREGU #### [address] [address] Basophils/100 WBC (Bld) 0.3 % Normal 0.0-2.5 [facility] Comment on above: Performed By: #### U A, PREGU #### [address] [address] Eosinophil, Absolute 0.0 10 3/mcL Normal 0.0-0.7 [facility] Comment on above: Performed By: #### U A, PREGU #### [address] [address] Eosinophils/100 WBC (Bld) 0.1 % Normal 0.0-6.0 [facility] Comment on above: Performed By: #### U A, PREGU #### [address] [address] Lymphocyte, Absolute 1.3 10 3/mcL Normal 0.9-4.3 [facility] Comment on above: Performed By: #### U A, PREGU #### [address] [address] Lymphocytes/100 WBC (Bld) 13.3 % Low 20.0-40.0 [facility] Comment on above: Performed By: #### U A, PREGU #### [address] [address] Monocyte, Absolute 0.3 10 3/mcL Normal 0.1-1.4 [facility] Comment on above: Performed By: #### U A, PREGU #### [address] [address] Monocytes/100 WBC (Bld) 3.0 % Normal 2.0-13.0 [facility] Comment on above: Performed By: #### U A, PREGU #### [address] [address] Neutrophils/100 WBC (Bld) 83.3 % High 50.0-75.0 [facility] Comment on above: Performed By: #### U A, PREGU #### [address] [address] .GFRon 02-28-2025 Estimated Glomerular Filtration Rate 103 ml/min/1.73sqm Normal [facility] Comment on above: Result Comment: Stages of [...] the eGFR results. Performed By: #### C BC, ALL, CHANCE, GFR, IWONA, MIRA #### [address] [address] .MDWon 02-28-2025 Monocyte Distribution Width 14.56 Normal 0.00-20.00 [facility] Comment on above: Result Comment: For ED adult patients suspected of sepsis, MDW<=20.0 does not rule out sepsis or risk of sepsis Performed By: #### U A PREGU #### [address] [address] .NEUABSon 02-28-2025 Neutrophil, Absolute 8.0 10 3/mcL Normal 2.3-8.1 [facility] Comment on above: Performed By: #### U Gilbert PREGU #### [address] [address] BMPon 02-28-2025 BUN/Creatinine Ratio 5 ratio Low 7-27 [facility] Comment on above: Performed By: #### U A PREGU #### [address] [address] Calcium [Mass/Vol] 9.0 mg/dL Normal 8.4-10.2 [facility] Comment on above: Performed By: #### U A PREGU #### [address] [address] Chloride [Moles/Vol] 105 mmol/L Normal 98-107 [facility] Comment on above: Performed By: #### U A, PREGU #### [address] [address] CO2 [Moles/Vol] 24 mmol/L Normal 22-29 [facility] Comment on above: Performed By: #### U A, PREGU #### [address] [address] Creatinine [Mass/Vol] 0.74 mg/dL Normal 0.51-0.95 [facility] Comment on above: Performed By: #### U A, PREGU #### [address] [address] Electrolyte Balance 9.0 mEq/L Normal 4.0-15.0 [facility] Comment on above: Performed By: #### U A, PREGU #### [address] [address] Glucose [Mass/Vol] 127 mg/dL High 70-105 [facility] Comment on above: Performed By: #### U A, PREGU #### [address] [address] Potassium [Moles/Vol] 3.7 mmol/L Normal 3.5-5.1 [facility] Comment on above: Performed By: #### U A, PREGU #### [address] [address] Sodium [Moles/Vol] 138 mmol/L Normal 136-145 [facility] Comment on above: Performed By: #### U A, PREGU #### [address] [address] Urea nitrogen [Mass/Vol] 4 mg/dL Low 7-18 [facility] Comment on above: Performed By: #### U A, PREGU #### [address] [address] CBCon 02-28-2025 Erythrocyte distribution width (RBC) [Ratio] 13.2 % Normal 11.5-15.5 [facility] Comment on above: Performed By: #### U A, PREGU #### [address] [address] Hematocrit (Bld) [Volume fraction] 41.6 % Normal 34.0-46.0 [facility] Comment on above: Performed By: #### U A, PREGU #### [address] [address] Hgb 14.6 G/dL Normal 12.0-16.0 [facility] Comment on above: Performed By: #### U A, PREGU #### [address] [address] MCH (RBC) [Entitic mass] 31.8 pg Normal 27.0-33.0 [facility] Comment on above: Performed By: #### U A, PREGU #### [address] [address] MCHC 35.2 G/dL Normal 32.0-36.0 [facility] Comment on above: Performed By: #### U A, PREGU #### [address] [address] MCV (RBC) [Entitic vol] 90.6 fL Normal 80.0-99.0 [facility] [facility] Comment on above: Performed By: #### U A, PREGU #### [address] [address] Platelet 284 10 3/mcL Normal 150-450 [facility] Comment on above: Performed By: #### U A, PREGU #### [address] [address] Platelet mean volume (Bld) [Entitic vol] 7.7 fL Normal 6.6-10.5 [facility] Comment on above: Performed By: #### U A, PREGU #### [address] [address] RBC 4.59 10 6/mcL Normal 4.10-5.30 [facility] Comment on above: Performed By: #### U A, PREGU #### [address] [address] WBC 9.7 10 3/mcL Normal 4.5-10.8 [facility] Comment on above: Performed By: #### U A, PREGU #### [address] [address] [address] ABD/PELVIS W/ IV CONTRAST ONLYon 02-28-2025 [...] 2:44:54 PM Ordering Provider: JUAN MIGUEL Solo [facility] LABORATORYOrdered By: Jorge Luis azar on 02-28-2025 [...] HCG ( test) Ql (U) Negative Normal [facility] Comment on above: Performed By: #### U A, PREGU #### [address] [address] test (u) int Not detected Invalid Interpretation Code [facility] Comment on above: Performed By: #### U A, PREGU #### [address] [place], [place] [address] UAon 02-28-2025 Color (U) Yellow Normal [facility] Comment on above: Performed By: #### U A, PREGU #### [address] [address] Glucose (U) [Mass/Vol] Negative Normal Negative [facility] Comment on above: Performed By: #### U A, PREGU #### [place] [id number] Ketones Ql (U) 15 mg/dL Abnormal Negative [facility] Comment on above: Performed By: #### U A, PREGU #### [place] [address] UA Appear Clear Normal Clear [facility] Comment on above: Performed By: #### U A, PREGU #### [place] [address] UA Bili Small Abnormal Negative [facility] Comment on above: Performed By: #### U A, PREGU #### [place] [address] UA Blood Small Abnormal Negative [facility] Comment on above: Performed By: #### U A, PREGU #### [place] [address] UA Leuk Est Negative Normal Negative [facility] Comment on above: Performed By: #### U A, PREGU #### [address] [address] UA Nitrite Negative Normal Negative [facility] Comment on above: Performed By: #### U A, PREGU #### [place] [address] UA pH 6.0 Normal 5.0 - 8.0 [facility] Comment on above: Performed By: #### U A, PREGU #### [place] [address] UA Protein Negative Normal Negative [facility] Comment on above: Performed By: #### U A, PREGU #### [place] [address] UA Spec Grav 1.025 Normal 1.015-1.025 [facility] Comment on above: Performed By: #### U A, PREGU #### [address] [address] UA Specimen Type Clean Catch Normal [facility] Comment on above: Performed By: #### U Gilbert, PREGU #### [address] [address] UA Urobilinogen 0.2 E.U./dL Normal 0.2-1.0 [facility] Comment on above: Performed By: #### U A, PREGU #### [address] [address] UAMICon 02-28-2025 UA RBC 0-2 Normal 0-2 [facility] Comment on above: Performed By: #### U Gilbert, PREGU #### [address] [address] UA Squam Epithelial 0-2 Normal 0-20 [facility] Comment on above: Performed By: #### U Gilbert, PREGU #### [address] [address] UA WBC 0-2 Normal 0-5 [facility] Comment on above: Performed By: #### U Gilbert, PREGU #### [address] [address] CNPNon 02-27-2025 CNPN Normal [facility] .Auto Diffon 02-26-2025 Basophil, Absolute 0.1 10 3/mcL Normal 0.0-0.3 [facility] Comment on above: Performed By: #### C ALL NICHOLAS MDW, GFR, ADIFF, BMP #### [address] [address] Basophils/100 WBC (Bld) 0.7 % Normal 0.0-2.5 [facility] Comment on above: Performed By: #### C ALL NICHOLAS MDW, GFR, ADIFF, BMP #### [address] [address] Eosinophil, Absolute 0.2 10 3/mcL Normal 0.0-0.7 [facility] Comment on above: Performed By: #### C BC, ANEU, MDW, GFR, ADIFF, BMP #### [address] [address] Eosinophils/100 WBC (Bld) 2.3 % Normal 0.0-6.0 [facility] Comment on above: Performed By: #### C BC, ANEU, MDW, GFR, ADIFF, BMP #### [address] [address] Lymphocyte, Absolute 3.8 10 3/mcL Normal 0.9-4.3 [facility] Comment on above: Performed By: #### C BC, ANEU, MDW, GFR, ADIFF, BMP #### [address] [address] Lymphocytes/100 WBC (Bld) 36.2 % Normal 20.0-40.0 [facility] Comment on above: Performed By: #### C CRISTOPHER, ALL, MDW, GFR, ADIFF, BMP #### [address] [address] Monocyte, Absolute 0.6 10 3/mcL Normal 0.1-1.4 [facility] Comment on above: Performed By: #### C BC, ANEU, MDW, GFR, ADIFF, BMP #### [address] [address] Monocytes/100 WBC (Bld) 5.9 % Normal 2.0-13.0 [facility] Comment on above: Performed By: #### C BC, ALL, MDW, GFR, ADIFF, BMP #### [address] [address] Neutrophils/100 WBC (Bld) 54.9 % Normal 50.0-75.0 [facility] Comment on above: Performed By: #### C BC, ANEU, MDW, GFR, ADIFF, BMP #### [address] [address] .GFRon 02-26-2025 Estimated Glomerular Filtration Rate 95 ml/min/1.73sqm Normal [facility] Comment on above: Result Comment: Stages of [...] the eGFR results. Performed By: #### C ALL NICHOLAS MDW, GFR, ADIFF, BMP #### [address] [address] .MDWon 02-26-2025 Monocyte Distribution Width 14.36 Normal 0.00-20.00 [facility] Comment on above: Result Comment: For ED adult patients suspected of sepsis, MDW<=20.0 does not rule out sepsis or risk of sepsis Performed By: #### C ALL NICHOLAS MDW, GFR, ADIFF, BMP #### [address] [address] .NEUABSon 02-26-2025 Neutrophil, Absolute 5.8 10 3/mcL Normal 2.3-8.1 [facility] Comment on above: Performed By: #### C ALL NICHOLAS MDW, GFR, ADIFF, BMP #### [address] [address] BMPon 02-26-2025 BUN/Creatinine Ratio 6 ratio Low 7-27 [facility] Comment on above: Performed By: #### C ALL NICHOLAS MDW, GFR, ADIFF, BMP #### [address] [address] Calcium [Mass/Vol] 8.6 mg/dL Normal 8.4-10.2 [facility] Comment on above: Performed By: #### C CRISTOPHER, MD ALLW, GFR, ADIFF, BMP #### [place] [address] Chloride [Moles/Vol] 104 mmol/L Normal 98-107 [facility] Comment on above: Performed By: #### C BC, ANEU, MDW, GFR, ADIFF, BMP #### [place] [address] CO2 [Moles/Vol] 28 mmol/L Normal 22-29 [facility] Comment on above: Performed By: #### C BC, ANEU, MDW, GFR, ADIFF, BMP #### [place] [address] Creatinine [Mass/Vol] 0.79 mg/dL Normal 0.51-0.95 [facility] Comment on above: Performed By: #### C BC, ANEU, MDW, GFR, ADIFF, BMP #### [place] [address] Electrolyte Balance 5.0 mEq/L Normal 4.0-15.0 [facility] Comment on above: Performed By: #### C CRISTOPHER, ANEU, MDW, GFR, ADIFF, BMP #### [place] [address] Glucose [Mass/Vol] 85 mg/dL Normal 70-105 [facility] Comment on above: Performed By: #### C BC, ANEU, MDW, GFR, ADIFF, BMP #### [place] [address] Potassium [Moles/Vol] 3.4 mmol/L Low 3.5-5.1 [facility] Comment on above: Performed By: #### C BC, ANEU, MDW, GFR, ADIFF, BMP #### [place] [address] Sodium [Moles/Vol] 137 mmol/L Normal 136-145 [facility] Comment on above: Performed By: #### C BC, ANEU, MDW, GFR, ADIFF, BMP #### [place] [id number] Urea nitrogen [Mass/Vol] 5 mg/dL Low 7-18 [facility] Comment on above: Performed By: #### C BC, ANEU, MDW, GFR, ADIFF, BMP #### [place] [address] CBCon 02-26-2025 Erythrocyte distribution width (RBC) [Ratio] 13.6 % Normal 11.5-15.5 [facility] Comment on above: Performed By: #### C BC, ANEU, MDW, GFR, ADIFF, BMP #### [place] [address] Hematocrit (Bld) [Volume fraction] 40.4 % Normal 34.0-46.0 [facility] Comment on above: Performed By: #### C BC, ANEU, MDW, GFR, ADIFF, BMP #### [place] [address] Hgb 14.0 G/dL Normal 12.0-16.0 [facility] Comment on above: Performed By: #### C BC, ANEU, MDW, GFR, ADIFF, BMP #### [place] [address] MCH (RBC) [Entitic mass] 31.7 pg Normal 27.0-33.0 [facility] Comment on above: Performed By: #### C BC, ANEU, MDW, GFR, ADIFF, BMP #### [place] [address] MCHC 34.6 G/dL Normal 32.0-36.0 [facility] Comment on above: Performed By: #### C BC, ANEU, MDW, GFR, ADIFF, BMP #### [place] [address] MCV (RBC) [Entitic vol] 91.6 fL Normal 80.0-99.0 [facility] Comment on above: Performed By: #### C BC, ANEU, MDW, GFR, ADIFF, BMP #### [address] [address] Platelet 281 10 3/mcL Normal 150-450 [facility] Comment on above: Performed By: #### C CRISTOPHER, CHANCE CARRIZALES, GFR, ADIFF, BMP #### [address] [address] Platelet mean volume (Bld) [Entitic vol] 7.6 fL Normal 6.6-10.5 [facility] Comment on above: Performed By: #### C CRISTOPHER, CHANCE CARRIZALES, GFR, ADIFF, BMP #### [address] [place], [place] [address] RBC 4.42 10 6/mcL Normal 4.10-5.30 [facility] Comment on above: Performed By: #### C CRISTOPHER, CHANCE CARRIZALES, GFR, ADIFF, BMP #### [address] [place], [place] [address] WBC 10.6 10 3/mcL Normal 4.5-10.8 [facility] Comment on above: Performed By: #### C CRISTOPHER, CHANCE CARRIZALES, GFR, ADIFF, BMP #### [address] [address] CNOVon 02-26-2025 CNOV Normal [facility] LABORATORYOrdered By: SYSTEM SYSTEM on 02-26-2025 [...] HCG ( test) Ql (U) Negative Normal [facility] Comment on above: Performed By: #### U A, PREGU #### [place] [address] test (u) int Not detected Invalid Interpretation Code [facility] Comment on above: Performed By: #### U A, PREGU #### [address] [address] UAon 02-26-2025 Color (U) Yellow Normal [facility] Comment on above: Performed By: #### U A, PREGU #### [address] [address] Glucose (U) [Mass/Vol] Negative Normal Negative [facility] Comment on above: Performed By: #### U A, PREGU #### [address] [address] Ketones Ql (U) Trace Abnormal Negative [facility] Comment on above: Performed By: #### U A, PREGU #### [address] [address] UA Appear Clear Normal Clear [facility] Comment on above: Performed By: #### U A, PREGU #### [address] [address] UA Blood Negative Normal Negative [facility] Comment on above: Performed By: #### U A, PREGU #### [address] [address] UA Leuk Est Negative Normal Negative [facility] Comment on above: Performed By: #### U A, PREGU #### [address] [address] UA Nitrite Negative Normal Negative [facility] Comment on above: Performed By: #### U A, PREGU #### [address] [address] UA pH 7.0 Normal 5.0 - 8.0 [facility] Comment on above: Performed By: #### U A, PREGU #### [place] [address] UA Protein Negative Normal Negative [facility] Comment on above: Performed By: #### U A, PREGU #### [place] [address] UA Spec Grav 1.015 Normal 1.015-1.025 [facility] Comment on above: Performed By: #### U A, PREGU #### [address] [address] UA Specimen Type Clean Catch Normal [facility] Comment on above: Performed By: #### U A, PREGU #### [address] [address] UA Urobilinogen 1.0 E.U./dL Normal 0.2-1.0 [facility] Comment on above: Performed By: #### U A, PREGU #### [place] [address] Urobilinogen (U) [Mass/Vol] Negative Normal Negative [facility] Comment on above: Performed By: #### U A, PREGU #### [place] [address] US PELVIS NON-OB W/TRANSVAGI NALon 02-26-2025 US [...] 02/26/2025 10:31:20 PM Ordering Provider: AVIS AUSTIN Normal [facility] CNPNon 02-12-2025 CNPN Normal [facility] CNOVon 02-04-2025 CNOV Normal [facility] CNOVon 02-01-2025 CNOV Normal [facility] CNPNon 02-01-2025 CNPN Normal [facility] CNPNon 01-29-2025 CNPN Normal [facility] CNOVon 01-14-2025 CNOV Normal [facility] CNTHERAPYon 01-14-2025 CNTHERAPY Normal [facility] THERAPY NTon 01-14-2025 THERAPY NT Normal [facility] CNOVon 01-09-2025 CNOV Normal [facility] STREP A MOLECULAR (POC)on Procedural Control Valid [facility] Strep A (POCT) Negative Negative [facility] CNTHERAPYon 01-08-2025 CNTHERAPY Normal [facility] CNCOon 01-03-2025 CNCO Letter Text Normal [facility] CNPNon 01-03-2025 CNPN Telephone ([id number]) PAT MEDINA ([id number]) 1980 F Date Time Provider Department 01/03/25 CHARLES STANTON3 During your visit today, we recorded the following information about you: Lasha Howard 01/03/2025 10:51 AM Signed No Show Documentation Pat Pertvenancio no showed for an appointment on 01/03/25 with Charles Stanton APRN.OR[employer]LE REPORTS DEVELOPER at 8:30. She was scheduled for S/P shoulder surgery [Z98.890]; Traumatic tear of right rotator cuff, unspecified tear extent, subsequent encounter [S46.011D]; Acute pain of right shoulder [M25.511]. I called and M Pat stated the reason that she missed her appointment was because n/a. Resources discussed/offered to patient: call office to reschedule No show determined to be fault of patient: N/A This is the patients first no show in the last 12 months. Patient was rescheduled for n/a. Letter mailed : Yes Is this the Third or Fourth No Show? Elaine Howard January 03, 2025 10:50 AM Allergies [...] Date Reviewed: 12/24/2024 Reviewed by: Sam Khan APRN.[employer]ACLE REPORTS DEVELOPER - Fully Assessed Reason for Visit: No Show [1558] Cmt: Missed #1 Prescriptions as of 01/03/2025 [...] Encounter Status:Closed by LASHA HOWARD on 01/03/25 Normal [facility] CNOVon 12-24-2024 CNOV Normal [facility] CNPNon 12-24-2024 CNPN Normal [facility] CNTHERAPYon 12-24-2024 CNTHERAPY Normal [facility] THERAPY NTon 12-24-2024 THERAPY NT Normal [facility] 12 Lead EKGon 12-16-2024 12 Lead EKG [facility] [address] [place] [address] 12 Lead EKG 12/16/24 1312 MR#: [id number] Acct: [id number] Name: PAT MEDINA Rep #: [id number] : 1980 44 From: Collin Starks MD [...] Abnormal ECG Confirmed by TAVARES GARCIA, COLLIN ([id number]), editor managing director DENNY VICENTE ([id number]) on 12/18/2024 6:44:24 AM Referred By: Confirmed By: COLLIN STARKS MD 12/18/24 0644 Date Collin Starks MD CC: Dr. Maile Norman MD; Dr. Iain Reina DO Signed Normal [facility] CBC W/Diff, Automatedon 11-26 Absolute Lymph 2.03 X10 3/uL Normal 0.83-4.51 [facility] Comment on above: Performed By: #### L 501.9100, L505.5000, L500.4050, L700.6800, L100.0100 #### [facility] [address] [place], [address] Absolute Neut 9.5 X10 3/uL High 2.0-7.7 [facility] Comment on above: Performed By: #### L 501.9100, L505.5000, L500.4050, L700.6800, L100.0100 #### [facility] [address] [place], [address] Basophils/100 WBC (Bld) 0.6 % Normal 0-1 [facility] Comment on above: Performed By: #### L 501.9100, L505.5000, L500.4050, L700.6800, L100.0100 #### [facility] [address] [place], [address] Eosinophils/100 WBC (Bld) 0.1 % Normal 0-5 [facility] Comment on above: Performed By: #### L 501.9100, L505.5000, L500.4050, L700.6800, L100.0100 #### [facility] [address] [place], [address] Erythrocyte distribution width (RBC) [Ratio] 12.0 % Normal 11.6-14.6 [facility] Comment on above: Performed By: #### L 501.9100, L505.5000, L500.4050, L700.6800, L100.0100 #### [facility] [address] [place], [address] Hematocrit (Bld) [Volume fraction] 40.2 % Normal 37-47 [facility] Comment on above: Performed By: #### L 501.9100, L505.5000, L500.4050, L700.6800, L100.0100 #### [facility] [address] [place], [address] Hemoglobin (Bld) [Mass/Vol] 14.2 g/dL Normal 12.0-15.0 [facility] Comment on above: Performed By: #### L 501.9100, L505.5000, L500.4050, L700.6800, L100.0100 #### [facility] [address] [place], [address] IG% 0.400 Normal 0.0-0.9 [facility] Comment on above: Result Comment: IG% - Immature Granulocytes (promyelocytes, myelocytes and metamyelocytes) > 1% indicates that a LEFT SHIFT is Present. Performed By: #### L 501.9100, L505.5000, L500.4050, L700.6800, L100.0100 #### [facility] [address] [place], [address] Lymphocytes/100 WBC (Bld) 16.7 % Low 19-41 [facility] Comment on above: Performed By: #### L 501.9100, L505.5000, L500.4050, L700.6800, L100.0100 #### [facility] [address] [place], [address] MCH (RBC) [Entitic mass] 31.6 pg Normal 27.0-32.0 [facility] Comment on above: Performed By: #### L 501.9100, L505.5000, L500.4050, L700.6800, L100.0100 #### [facility] [address] [place], [address] MCHC (RBC) [Mass/Vol] 35.3 g/dL Normal 32-36 [facility] Comment on above: Performed By: #### L 501.9100, L505.5000, L500.4050, L700.6800, L100.0100 #### [facility] [address] [place], [address] MCV (RBC) [Entitic vol] 89.3 fL Normal 81-99 [facility] Comment on above: Performed By: #### L 501.9100, L505.5000, L500.4050, L700.6800, L100.0100 #### [facility] [address] [place], [address] Monocytes/100 WBC (Bld) 4.3 % Normal 0-10 [facility] Comment on above: Performed By: #### L 501.9100, L505.5000, L500.4050, L700.6800, L100.0100 #### [facility] [address] [place], [address] Neutrophils/100 WBC (Bld) 77.9 % High 47-70 [facility] Comment on above: Performed By: #### L 501.9100, L505.5000, L500.4050, L700.6800, L100.0100 #### [facility] [address] [place], [address] Nucleated RBC (Bld) [#/Vol] 0 10*3/uL Normal 0-5 [facility] Comment on above: Performed By: #### L 501.9100, L505.5000, L500.4050, L700.6800, L100.0100 #### [facility] [address] [place], [address] Platelet mean volume (Bld) [Entitic vol] 9.3 fL Normal 6.2-12.0 [facility] Comment on above: Performed By: #### L 501.9100, L505.5000, L500.4050, L700.6800, L100.0100 #### [facility] [address] [place], [address] Platelets (Bld) [#/Vol] 358 10*3/uL Normal 150-450 [facility] Comment on above: Performed By: #### L 501.9100, L505.5000, L500.4050, L700.6800, L100.0100 #### [facility] [address] [place], [address] RBC (Bld) [#/Vol] 4.50 10*6/uL Normal 4.2-5.4 [facility] Comment on above: Performed By: #### L 501.9100, L505.5000, L500.4050, L700.6800, L100.0100 #### [facility] [address] [place], [address] RDW SD 39.5 fl Normal 35.1-43.9 [facility] Comment on above: Performed By: #### L 501.9100, L505.5000, L500.4050, L700.6800, L100.0100 #### [facility] [address] [place], [address] WBC (Bld) [#/Vol] 12.1 10*3/uL High 4.4-11.0 [facility] Comment on above: Performed By: #### L 501.9100, L505.5000, L500.4050, L700.6800, L100.0100 #### [facility] [address] [place], [address] Chest 1 View (Portable)on Chest 1 View (Portable) [facility] Imaging Services [address] [place] [address] Chest 1 View (Portable) MR#: [id number] Acct: [id number] Name: PAT MEDINA Rep #: [id number] : 1980 F 44 From: Sandie Martinez nd, MD PCP: Dr. Maile Norman MD Status: PRE ER Study: Chest 1 View (Portable) Date of Exam: 12/16/24 Exam# [id number] Ordering Dr: Iain Reina DO PROCEDURE: CHEST 1 VIEW (PORTABLE) 12/16/2024 REASON FOR EXAM: SOB TECHNIQUE: Frontal view of the chest. COMPARISON: Chest radiograph 01/05/2022. FINDINGS: Hardware: None. Heart: The heart size is normal. Lungs: No focal consolidation, pleural effusion or pneumothorax. Bones: The bones are unremarkable. RAD/Chest 1 View (Portable) IMPRESSION: Negative Chest. Reading Location: [id number] CC: Dr. Maile Norman MD; Dr. Iain Reina DO Color Dipper: Signed Normal [facility] Comprehensive Metabolic Prof ilon 12-16-2024 Albumin [Mass/Vol] 4.0 g/dL Normal 3.5-5.0 [facility] Comment on above: Performed By: #### L 501.9100, L505.5000, L500.4050, L700.6800, L100.0100 #### [facility] [address] [place], [address] Albumin/Globulin [Mass ratio] 1.6 {ratio} Normal 0.9-2.4 [facility] Comment on above: Performed By: #### L 501.9100, L505.5000, L500.4050, L700.6800, L100.0100 #### [facility] [address] [place], [address] ALK PHOS 61 U/L Normal 35-104 [facility] Comment on above: Performed By: #### L 501.9100, L505.5000, L500.4050, L700.6800, L100.0100 #### [facility] [address] [place], [address] ALT [Catalytic activity/Vol] 10 U/L Normal <=34 [facility] Comment on above: Performed By: #### L 501.9100, L505.5000, L500.4050, L700.6800, L100.0100 #### [facility] [address] [place], [address] AST [Catalytic activity/Vol] 15 U/L Normal <=31 [facility] Comment on above: Performed By: #### L 501.9100, L505.5000, L500.4050, L700.6800, L100.0100 #### [facility] [address] [place], [address] Bilirubin [Mass/Vol] 0.29 mg/dL Normal 0.00-1.30 [facility] Comment on above: Performed By: #### L 501.9100, L505.5000, L500.4050, L700.6800, L100.0100 #### [facility] [address] [place], [address] BUN/CRE 7.4 RATIO Low 10-20 [facility] Comment on above: Performed By: #### L 501.9100, L505.5000, L500.4050, L700.6800, L100.0100 #### [facility] [address] [place], [address] Calcium [Mass/Vol] 9.2 mg/dL Normal 7.6-11.0 [facility] Comment on above: Performed By: #### L 501.9100, L505.5000, L500.4050, L700.6800, L100.0100 #### [facility] [address] [place], [address] Chloride [Moles/Vol] 106 mmol/L Normal 98-108 [facility] Comment on above: Performed By: #### L 501.9100, L505.5000, L500.4050, L700.6800, L100.0100 #### [facility] [address] [place], [address] CO2 [Moles/Vol] 21.4 mmol/L Normal 21.0-32.0 [facility] Comment on above: Performed By: #### L 501.9100, L505.5000, L500.4050, L700.6800, L100.0100 #### [facility] [address] [place], [address] Creatinine [Mass/Vol] 0.75 mg/dL Normal 0.70-1.20 [facility] Comment on above: Performed By: #### L 501.9100, L505.5000, L500.4050, L700.6800, L100.0100 #### [facility] [address] [place], [address] ECRCL 87.46 ml/min Normal 50-250 [facility] Comment on above: Performed By: #### L 501.9100, L505.5000, L500.4050, L700.6800, L100.0100 #### [facility] [address] [place], [address] GAP 12 Normal 5-15 [facility] Comment on above: Performed By: #### L 501.9100, L505.5000, L500.4050, L700.6800, L100.0100 #### [facility] [address] [place], [address] GFR/1.73 sq M.predicted among non-blacks MDRD (S/P/Bld) [Vol rate/Area] 101 mL/min/{1.73_m2} Normal >60 [facility] Comment on above: Result Comment: mL/m in/1.73m2 CKD-EPI Creatinine Equation (2020) Performed By: #### L 501.9100, L505.5000, L500.4050, L700.6800, L100.0100 #### [facility] [address] [place], [address] Globulin (S) [Mass/Vol] 2.5 g/dL Normal 2.2-4.2 [facility] Comment on above: Performed By: #### L 501.9100, L505.5000, L500.4050, L700.6800, L100.0100 #### [facility] [address] [place], [address] Glucose [Mass/Vol] 115 mg/dL High 70-99 [facility] Comment on above: Performed By: #### L 501.9100, L505.5000, L500.4050, L700.6800, L100.0100 #### [facility] [address] [place], [address] Potassium [Moles/Vol] 3.8 mmol/L Normal 3.3-5.1 [facility] Comment on above: Performed By: #### L 501.9100, L505.5000, L500.4050, L700.6800, L100.0100 #### [facility] [address] [place], [address] Sodium [Moles/Vol] 139 mmol/L Normal 133-145 [facility] Comment on above: Performed By: #### L 501.9100, L505.5000, L500.4050, L700.6800, L100.0100 #### [facility] [address] [place], [address] T PROT 6.5 g/dL Normal 5.9-8.4 [facility] Comment on above: Performed By: #### L 501.9100, L505.5000, L500.4050, L700.6800, L100.0100 #### [facility] [address] [place], [address] Urea nitrogen [Mass/Vol] 6 mg/dL Normal 4-19 [facility] Comment on above: Performed By: #### L 501.9100, L505.5000, L500.4050, L700.6800, L100.0100 #### [facility] [address] [place], [address] Emergency Department Summary on 12-16-2024 Emergency Department Summary [facility] Medical Records Department [address] [place] [address] Emergency Department Summary 12/16/24 MR#: [id number] Acct: [id number] Name: PAT MEDINA Rep #: [id number] : 1980 44 From: Iain Reina DO PCP: Dr. Maile Norman MD Status:REG ER Location: ED HPI History of Present Illness Chief Complaint: Substance Abuse [facility] Medical History Substance abuse Congestive heart failure [...] Oxygen Delivery Method Room Air Room Air MDM MDM MDM Narrative Medical [...] II through (more content not included)... Normal [facility] Lipaseon 12-16-2024 Lipase [Catalytic activity/Vol] 40 U/L Normal 13-75 [facility] Comment on above: Result Comment: Padma gee note: LIPASE revised reference range effective 22. New Lipase methodology. Expected to produce lower values than the previous assay method. NEW Reference Range: 13 - 75 U/L Performed By: #### L 501.9100, L505.5000, L500.4050, L700.6800, L100.0100 #### [facility] [address] [place], [address] ,Urineon 12-16-2024 Beta HCG ( test) Ql (U) Negative Normal [facility] Comment on above: Result Comment: Very dilute urine specimens, as indicated by a low specific gravity, may not contain energy conservation representative levels of hCG. If is still suspected, a first morning urine specimen should be collected 48 hours later and tested. Performed By: #### L 400.7600 #### [facility] [address] [facility] [place], [address] Urinalysis, Completeon 12-16 BACTERIA RARE Normal None Seen [facility] Comment on above: Order Comment: COLLE CTOR TO SPECIFY Performed By: #### L 400.0001 ####[facility] [address] [facility] [place], [address] EPI,SQUAMOUS 25-50 SEEN Normal 5-10 [facility] Comment on above: Order Comment: COLLE CTOR TO SPECIFY Performed By: #### L 400.0001 ####[facility] [address] [place], [address] Mucus Ql (Urine sed) 0 SEEN Normal [facility] Comment on above: Order Comment: COLLE CTOR TO SPECIFY Performed By: #### L 400.0001 ####[facility] [address] [place], [address] RBC 0 SEEN Normal 0-5 [facility] Comment on above: Order Comment: COLLE CTOR TO SPECIFY Performed By: #### L 400.0001 ####[facility] [address] [place], [address] WBC 0 SEEN Normal 0-5 [facility] Comment on above: Order Comment: COLLE CTOR TO SPECIFY Performed By: #### L 400.0001 ####[facility] [address] [place], [address] CNPNon 12-10-2024 CNPN Normal [facility] Discharge Instructionon 11-25 Discharge Instruction [facility] Medical Records Department [address] [place] [address] Instructions for Home/Discharge Instructions 12/09/24 1044 MR#: [id number] Acct: [id number] Name: PAT MEDINA Rep #: [id number] : 1980 44 From: Jorge Luis Ortega [...] Jorge Luis Ortega DO CC: Dr. Adelina Garcia DO; Dr. Maile Norman MD Signed Normal [facility] Alcohol, Blood (Medical)-Ser [facility] 12-06-2024 SERUM ETOH < 10.1 Normal <=10.0 [facility] Comment on above: Result Comment: This test is for medical purposes only. The legal definition of intoxication varies according to local law. Performed By: #### L 501.9100, L505.5000, L500.4050, L700.6800, L100.0100 #### [facility] [address] [facility] [address] [place], [place], [id number] CBC W/Diff, Automatedon 11-25 Absolute Lymph 2.81 X10 3/uL Normal 0.83-4.51 [facility] Comment on above: Performed By: #### L 501.9100, L505.5000, L500.4050, L700.6800, L100.0100 #### [facility] [address] [place], [address] Absolute Neut 5.5 X10 3/uL Normal 2.0-7.7 [facility] Comment on above: Performed By: #### L 501.9100, L505.5000, L500.4050, L700.6800, L100.0100 #### [facility] [address] [place], [address] Basophils/100 WBC (Bld) 1.1 % High 0-1 [facility] Comment on above: Performed By: #### L 501.9100, L505.5000, L500.4050, L700.6800, L100.0100 #### [facility] [address] [place], [address] Eosinophils/100 WBC (Bld) 1.1 % Normal 0-5 [facility] Comment on above: Performed By: #### L 501.9100, L505.5000, L500.4050, L700.6800, L100.0100 #### [facility] [address] [place], [address] Erythrocyte distribution width (RBC) [Ratio] 12.3 % Normal 11.6-14.6 [facility] Comment on above: Performed By: #### L 501.9100, L505.5000, L500.4050, L700.6800, L100.0100 #### [facility] [address] [place], [address] Hematocrit (Bld) [Volume fraction] 38.5 % Normal 37-47 [facility] Comment on above: Performed By: #### L 501.9100, L505.5000, L500.4050, L700.6800, L100.0100 #### [facility] [address] [place], [address] Hemoglobin (Bld) [Mass/Vol] 13.5 g/dL Normal 12.0-15.0 [facility] Comment on above: Performed By: #### L 501.9100, L505.5000, L500.4050, L700.6800, L100.0100 #### [facility] [address] [place], [address] IG% 0.200 Normal 0.0-0.9 [facility] Comment on above: Result Comment: IG% - Immature Granulocytes (promyelocytes, myelocytes and metamyelocytes) > 1% indicates that a LEFT SHIFT is Present. Performed By: #### L 501.9100, L505.5000, L500.4050, L700.6800, L100.0100 #### [facility] [address] [place], [address] Lymphocytes/100 WBC (Bld) 30.5 % Normal 19-41 [facility] Comment on above: Performed By: #### L 501.9100, L505.5000, L500.4050, L700.6800, L100.0100 #### [facility] [address] [place], [address] MCH (RBC) [Entitic mass] 31.9 pg Normal 27.0-32.0 [facility] Comment on above: Performed By: #### L 501.9100, L505.5000, L500.4050, L700.6800, L100.0100 #### [facility] [address] [place], [address] MCHC (RBC) [Mass/Vol] 35.1 g/dL Normal 32-36 [facility] Comment on above: Performed By: #### L 501.9100, L505.5000, L500.4050, L700.6800, L100.0100 #### [facility] [address] [place], [address] MCV (RBC) [Entitic vol] 91.0 fL Normal 81-99 [facility] Comment on above: Performed By: #### L 501.9100, L505.5000, L500.4050, L700.6800, L100.0100 #### [facility] [address] [place], [address] Monocytes/100 WBC (Bld) 7.5 % Normal 0-10 [facility] Comment on above: Performed By: #### L 501.9100, L505.5000, L500.4050, L700.6800, L100.0100 #### [facility] [address] [place], [address] Neutrophils/100 WBC (Bld) 59.6 % Normal 47-70 [facility] Comment on above: Performed By: #### L 501.9100, L505.5000, L500.4050, L700.6800, L100.0100 #### [facility] [address] [place], [address] Nucleated RBC (Bld) [#/Vol] 0 10*3/uL Normal 0-5 [facility] Comment on above: Performed By: #### L 501.9100, L505.5000, L500.4050, L700.6800, L100.0100 #### [facility] [address] [place], [address] Platelet mean volume (Bld) [Entitic vol] 10.0 fL Normal 6.2-12.0 [facility] Comment on above: Performed By: #### L 501.9100, L505.5000, L500.4050, L700.6800, L100.0100 #### [facility] [address] [place], [address] Platelets (Bld) [#/Vol] 273 10*3/uL Normal 150-450 [facility] Comment on above: Performed By: #### L 501.9100, L505.5000, L500.4050, L700.6800, L100.0100 #### [facility] [address] [place], [address] RBC (Bld) [#/Vol] 4.23 10*6/uL Normal 4.2-5.4 [facility] Comment on above: Performed By: #### L 501.9100, L505.5000, L500.4050, L700.6800, L100.0100 #### [facility] [address] [place], [address] RDW SD 40.9 fl Normal 35.1-43.9 [facility] Comment on above: Performed By: #### L 501.9100, L505.5000, L500.4050, L700.6800, L100.0100 #### [facility] [address] [place], [address] WBC (Bld) [#/Vol] 9.2 10*3/uL Normal 4.4-11.0 [facility] Comment on above: Performed By: #### L 501.9100, L505.5000, L500.4050, L700.6800, L100.0100 #### [facility] [address] [place], [address] Comprehensive Metabolic Prof [facility] 12-06-2024 Albumin [Mass/Vol] 3.8 g/dL Normal 3.5-5.0 [facility] Comment on above: Performed By: #### L 501.9100, L505.5000, L500.4050, L700.6800, L100.0100 #### [facility] [address] [place], [address] Albumin/Globulin [Mass ratio] 1.6 {ratio} Normal 0.9-2.4 [facility] Comment on above: Performed By: #### L 501.9100, L505.5000, L500.4050, L700.6800, L100.0100 #### [facility] [address] [place], [address] ALK PHOS 62 U/L Normal 35-104 [facility] Comment on above: Performed By: #### L 501.9100, L505.5000, L500.4050, L700.6800, L100.0100 #### [facility] [address] [place], [address] ALT [Catalytic activity/Vol] 11 U/L Normal <=34 [facility] Comment on above: Performed By: #### L 501.9100, L505.5000, L500.4050, L700.6800, L100.0100 #### [facility] [address] [place], [address] AST [Catalytic activity/Vol] 22 U/L Normal <=31 [facility] Comment on above: Performed By: #### L 501.9100, L505.5000, L500.4050, L700.6800, L100.0100 #### [facility] [address] [place], [address] Bilirubin [Mass/Vol] 0.19 mg/dL Normal 0.00-1.30 [facility] Comment on above: Performed By: #### L 501.9100, L505.5000, L500.4050, L700.6800, L100.0100 #### [facility] [address] [place], [address] BUN/CRE 4.6 RATIO Low 10-20 [facility] Comment on above: Performed By: #### L 501.9100, L505.5000, L500.4050, L700.6800, L100.0100 #### [facility] [address] [place], [address] Calcium [Mass/Vol] 8.8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 By: #### L 400.7600 #### [facility] [address] [place], [address] Glucose [Mass/Vol] 104 mg/dL High 70-99 [facility] Comment on above: Performed By: #### L 400.7600 #### [facility] [address] [place], [address] Potassium [Moles/Vol] 3.1 mmol/L Low 3.3-5.1 [facility] Comment on above: Performed By: #### L 400.7600 #### [facility] [address] [place], [address] Sodium [Moles/Vol] 137 mmol/L Normal 133-145 [facility] Comment on above: Performed By: #### L 400.7600 #### [facility] [address] [place], [address] Urea nitrogen [Mass/Vol] 7 mg/dL Normal 4-19 [facility] Comment on above: Performed By: #### L 400.7600 #### [facility] [address] [place], [address] CBC W/Diff, Automatedon 03-0 Absolute Lymph 2.94 X10 3/uL Normal 0.83-4.51 [facility] Comment on above: Performed By: #### L 400.7600 #### [facility] [address] [place] [place], [address] Absolute Neut 5.4 X10 3/uL Normal 2.0-7.7 [facility] Comment on above: Performed By: #### L 400.7600 #### [facility] [address] [place], [address] Basophils/100 WBC (Bld) 0.5 % Normal 0-1 [facility] Comment on above: Performed By: #### L 400.7600 #### [facility] [address] [place], [address] Eosinophils/100 WBC (Bld) 2.1 % Normal 0-5 [facility] Comment on above: Performed By: #### L 400.7600 #### [facility] [address] [place], [address] Erythrocyte distribution width (RBC) [Ratio] 12.6 % Normal 11.6-14.6 [facility] Comment on above: Performed By: #### L 400.7600 #### [facility] [address] [place], [address] Hematocrit (Bld) [Volume fraction] 37.1 % Normal 37-47 [facility] Comment on above: Performed By: #### L 400.7600 #### [facility] [address] [place], [address] Hemoglobin (Bld) [Mass/Vol] 12.9 g/dL Normal 12.0-15.0 [facility] Comment on above: Performed By: #### L 400.7600 #### [facility] [address] [place], [address] IG% 0.400 Normal 0.0-0.9 [facility] Comment on above: Result Comment: IG% - Immature Granulocytes (promyelocytes, myelocytes and metamyelocytes) > 1% indicates that a LEFT SHIFT is Present. Performed By: #### L 400.7600 #### [facility] [address] [place], [address] Lymphocytes/100 WBC (Bld) 31.8 % Normal 19-41 [facility] Comment on above: Performed By: #### L 400.7600 #### [facility] [address] [place], [address] MCH (RBC) [Entitic mass] 32.3 pg High 27.0-32.0 [facility] Comment on above: Performed By: #### L 400.7600 #### [facility] [address] [place], [place], [address] MCHC (RBC) [Mass/Vol] 34.8 g/dL Normal 32-36 [facility] Comment on above: Performed By: #### L 400.7600 #### [facility] [address] [place], [address] MCV (RBC) [Entitic vol] 93.0 fL Normal 81-99 [facility] Comment on above: Performed By: #### L 400.7600 #### [facility] [address] [place], [address] Monocytes/100 WBC (Bld) 6.5 % Normal 0-10 [facility] Comment on above: Performed By: #### L 400.7600 #### [facility] [address] [place], [address] Neutrophils/100 WBC (Bld) 58.7 % Normal 47-70 [facility] Comment on above: Performed By: #### L 400.7600 #### [facility] [address] [place], [address] Nucleated RBC (Bld) [#/Vol] 0 10*3/uL Normal 0-5 [facility] Comment on above: Performed By: #### L 400.7600 #### [facility] [address] [place], [address] Platelet mean volume (Bld) [Entitic vol] 9.4 fL Normal 6.2-12.0 [facility] Comment on above: Performed By: #### L 400.7600 #### [facility] [address] [place], [address] Platelets (Bld) [#/Vol] 246 10*3/uL Normal 150-450 [facility] Comment on above: Performed By: #### L 400.7600 #### [facility] [address] [place], [address] RBC (Bld) [#/Vol] 3.99 10*6/uL Low 4.2-5.4 [facility] Comment on above: Performed By: #### L 400.7600 #### [facility] [address] [place], [address] RDW SD 43.0 fl Normal 35.1-43.9 [facility] Comment on above: Performed By: #### L 400.7600 #### [facility] [address] [place], [address] WBC (Bld) [#/Vol] 9.3 10*3/uL Normal 4.4-11.0 [facility] Comment on above: Performed By: #### L 400.7600 #### [facility] [address] [place], [address] Emergency Department Summary on 08-28-2024 Emergency Department Summary [facility] Medical Records Department [address] [address] Emergency Department Summary 08/28/24 MR#: [id number] Acct: [id number] Name: PAT MEDINA Rep #: [id number] : 1980 44 From: Reny Painter DO [...] denies any alcohol or other drug use. [facility] Medical History Marijuana use Right rotator cuff [...] % topical patch 1 patch topical Q24H 09/02/24 Unkn own History tizanidine 4 mg tablet [...] Temperature Source (more content not included)... Normal [facility] Lactic Acidon 08-28-2024 Lactate [Moles/Vol] 1.1 mmol/L Normal 0.0-2.0 [facility] Comment on above: Order Comment: Y Performed By: #### L 400.7600 #### [facility] [address] [place], [address] Lipaseon 08-28-2024 Lipase [Catalytic activity/Vol] 31 U/L Normal 13-75 [facility] Comment on above: Result Comment: Padma gee note: LIPASE revised reference range effective 22. New Lipase methodology. Expected to produce lower values than the previous assay method. NEW Reference Range: 13 - 75 U/L Performed By: #### L 400.7600 #### [facility] [address] [place], [address] Liver Profileon 08-28-2024 Albumin [Mass/Vol] 3.5 g/dL Normal 3.5-5.0 [facility] Comment on above: Performed By: #### L 501.9100, L505.5000, L500.4050, L700.6800, L100.0100 #### [facility] [address] [place], [address] ALK PHOS 57 U/L Normal 35-104 [facility] Comment on above: Performed By: #### L 501.9100, L505.5000, L500.4050, L700.6800, L100.0100 #### [facility] [address] [place], [address] ALT [Catalytic activity/Vol] 10 U/L Normal <=34 [facility] Comment on above: Performed By: #### L 501.9100, L505.5000, L500.4050, L700.6800, L100.0100 #### [facility] [address] [place], [address] AST [Catalytic activity/Vol] 26 U/L Normal <=31 [facility] Comment on above: Performed By: #### L 501.9100, L505.5000, L500.4050, L700.6800, L100.0100 #### [facility] [address] [place], [address] D BILI < 0.08 Normal 0.00-0.30 [facility] Comment on above: Performed By: #### L 501.9100, L505.5000, L500.4050, L700.6800, L100.0100 #### [facility] [address] [place], [address] Globulin (S) [Mass/Vol] 2.6 g/dL Normal 2.2-4.2 [facility] Comment on above: Performed By: #### L 501.9100, L505.5000, L500.4050, L700.6800, L100.0100 #### [facility] [address] [place], [address] T BILI < 0.15 Normal 0.00-1.30 [facility] Comment on above: Performed By: #### L 501.9100, L505.5000, L500.4050, L700.6800, L100.0100 #### [facility] [address] [place], [address] T PROT 6.0 g/dL Normal 5.9-8.4 [facility] Comment on above: Performed By: #### L 501.9100, L505.5000, L500.4050, L700.6800, L100.0100 #### [facility] [address] [place], [address] Urinalysis, Completeon 08-28 BACTERIA Normal None Seen [facility] Comment on above: Order Comment: CLEAN CATCH Result Comment: PT D EP ER ED.M Performed By: #### L 400.7600 #### [facility] [address] [place], [address] BILIRUBIN URINE Normal Negative [facility] Comment on above: Order Comment: CLEAN CATCH Result Comment: PT D EP ER ED.M Performed By: #### L 400.7600 #### [facility] [address] [place], [address] Clarity (U) Normal Clear [facility] Comment on above: Order Comment: CLEAN CATCH Result Comment: PT D EP ER ED.M Performed By: #### L 400.7600 #### [facility] [address] [place], [address] Color (U) Normal Yellow [facility] Comment on above: Order Comment: CLEAN CATCH Result Comment: PT D EP ER ED.M Performed By: #### L 400.7600 #### [facility] [address] [place], [address] EPI,SQUAMOUS Normal 5-10 [facility] Comment on above: Order Comment: CLEAN CATCH Result Comment: PT D EP ER ED.M Performed By: #### L 400.7600 #### [facility] [address] [place], [address] GLUCOSE, UR Normal Normal [facility] Comment on above: Order Comment: CLEAN CATCH Result Comment: PT D EP ER ED.M Performed By: #### L 400.7600 #### [facility] [address] [place], [address] KETONE UR Normal Negative [facility] Comment on above: Order Comment: CLEAN CATCH Result Comment: PT D EP ER ED.M Performed By: #### L 400.7600 #### [facility] [address] [place], [address] LEUK ESTERASE Normal Negative [facility] Comment on above: Order Comment: CLEAN CATCH Result Comment: PT D EP ER ED.M Performed By: #### L 400.7600 #### [facility] [address] [place], [address] Mucus Ql (Urine sed) Normal [facility] Comment on above: Order Comment: CLEAN CATCH Result Comment: PT D EP ER ED.M Performed By: #### L 400.7600 #### [facility] [address] [place], [address] Nitrite Ql (U) Normal Negative [facility] Comment on above: Order Comment: CLEAN CATCH Result Comment: PT D EP ER ED.M Performed By: #### L 400.7600 #### [facility] [address] [place], [address] OCCULT BLOOD-UR Normal Negative [facility] Comment on above: Order Comment: CLEAN CATCH Result Comment: PT D EP ER ED.M Performed By: #### L 400.7600 #### [facility] [address] [place], [address] pH UR Normal 5.0 - 8.0 [facility] Comment on above: Order Comment: CLEAN CATCH Result Comment: PT D EP ER ED.M Performed By: #### L 400.7600 #### [facility] [address] [place], [address] PROT DIPSTX Normal Negative [facility] Comment on above: Order Comment: CLEAN CATCH Result Comment: PT D EP ER ED.M Performed By: #### L 400.7600 #### [facility] [address] [place], [address] RBC Normal 0-5 [facility] Comment on above: Order Comment: CLEAN CATCH Result Comment: PT D EP ER ED.M Performed By: #### L 400.7600 #### [facility] [address] [place], [address] SP.GR. DIPSTX Normal 1.002-1.030 [facility] Comment on above: Order Comment: CLEAN CATCH Result Comment: PT D EP ER ED.M Performed By: #### L 400.7600 #### [facility] [address] [place], [address] UR Preservative Normal [facility] Comment on above: Order Comment: CLEAN CATCH Result Comment: PT D EP ER ED.M Performed By: #### L 400.7600 #### [facility] [address] [place], [address] UROBILI Normal Normal [facility] Comment on above: Order Comment: CLEAN CATCH Result Comment: PT D EP ER ED.M Performed By: #### L 400.7600 #### [facility] [address] [place], [address] WBC Normal 0-5 [facility] Comment on above: Order Comment: CLEAN CATCH Result Comment: PT D EP ER ED.M Performed By: #### L 400.7600 #### [facility] [address] [place], [address] Abdomen/Pelvis W IV Cont ONL Yon 08-26-2024 Abdomen/Pelvis W IV Cont ONLY [facility] [address] [place] [address] Abdomen/Pelvis W IV Cont ONLY MR#: [id number] Acct: [id number] Name: PAT MEDINA Rep #: [id number] : 1980 F 44 From: Navi Graham MD PCP: Dr. Maile Norman MD Status: REG ER Study: Abdomen/Pelvis W IV Cont ONLY Date of Exam: Exam# [id number] Ordering Dr: Navi Cruz [employer]UTCH MECH[employer]IC-C PROCEDURE: ABDOMEN/PELVIS W IV CONT ONLY REASON [...] CC: LISSA Cruz; Dr. Maile Norman MD Color Dipper: Signed Normal [facility] CBC W/Diff, Automatedon 03- Absolute Lymph 1.12 X10 3/uL Normal 0.83-4.51 [facility] Comment on above: Performed By: #### L 501.9100, L505.5000, L500.4050, L700.6800, L100.0100 #### [facility] [address] [facility] [place], [address] Absolute Neut 19.4 X10 3/uL High 2.0-7.7 [facility] Comment on above: Performed By: #### L 501.9100, L505.5000, L500.4050, L700.6800, L100.0100 #### [facility] [address] [place], [address] Basophils/100 WBC (Bld) 0.3 % Normal 0-1 [facility] Comment on above: Performed By: #### L 501.9100, L505.5000, L500.4050, L700.6800, L100.0100 #### [facility] [address] [place], [address] Eosinophils/100 WBC (Bld) 0.3 % Normal 0-5 [facility] Comment on above: Performed By: #### L 501.9100, L505.5000, L500.4050, L700.6800, L100.0100 #### [facility] [address] [place], [address] Erythrocyte distribution width (RBC) [Ratio] 12.7 % Normal 11.6-14.6 [facility] Comment on above: Performed By: #### L 501.9100, L505.5000, L500.4050, L700.6800, L100.0100 #### [facility] [address] [place], [address] Hematocrit (Bld) [Volume fraction] 50.4 % High 37-47 [facility] Comment on above: Performed By: #### L 501.9100, L505.5000, L500.4050, L700.6800, L100.0100 #### [facility] [address] [place], [address] Hemoglobin (Bld) [Mass/Vol] 17.4 g/dL High 12.0-15.0 [facility] Comment on above: Performed By: #### L 501.9100, L505.5000, L500.4050, L700.6800, L100.0100 #### [facility] [address] [place], [address] IG% 0.400 Normal 0.0-0.9 [facility] Comment on above: Result Comment: IG% - Immature Granulocytes (promyelocytes, myelocytes and metamyelocytes) > 1% indicates that a LEFT SHIFT is Present. Performed By: #### L 501.9100, L505.5000, L500.4050, L700.6800, L100.0100 #### [facility] [address] [place], [address] Lymphocytes/100 WBC (Bld) 5.2 % Low 19-41 [facility] Comment on above: Performed By: #### L 501.9100, L505.5000, L500.4050, L700.6800, L100.0100 #### [facility] [address] [place], [address] MCH (RBC) [Entitic mass] 32.3 pg High 27.0-32.0 [facility] Comment on above: Performed By: #### L 501.9100, L505.5000, L500.4050, L700.6800, L100.0100 #### [facility] [address] [place], [address] MCHC (RBC) [Mass/Vol] 34.5 g/dL Normal 32-36 [facility] Comment on above: Performed By: #### L 501.9100, L505.5000, L500.4050, L700.6800, L100.0100 #### [facility] [address] [place], [address] MCV (RBC) [Entitic vol] 93.7 fL Normal 81-99 [facility] Comment on above: Performed By: #### L 501.9100, L505.5000, L500.4050, L700.6800, L100.0100 #### [facility] [address] [place], [address] Monocytes/100 WBC (Bld) 3.3 % Normal 0-10 [facility] Comment on above: Performed By: #### L 501.9100, L505.5000, L500.4050, L700.6800, L100.0100 #### [facility] [address] [place], [address] Neutrophils/100 WBC (Bld) 90.5 % High 47-70 [facility] Comment on above: Performed By: #### L 501.9100, L505.5000, L500.4050, L700.6800, L100.0100 #### [facility] [address] [place], [address] Nucleated RBC (Bld) [#/Vol] 0 10*3/uL Normal 0-5 [facility] Comment on above: Performed By: #### L 501.9100, L505.5000, L500.4050, L700.6800, L100.0100 #### [facility] [address] [place], [address] Platelet mean volume (Bld) [Entitic vol] 9.4 fL Normal 6.2-12.0 [facility] Comment on above: Performed By: #### L 501.9100, L505.5000, L500.4050, L700.6800, L100.0100 #### [facility] [address] [place], [address] Platelets (Bld) [#/Vol] 414 10*3/uL Normal 150-450 [facility] Comment on above: Performed By: #### L 501.9100, L505.5000, L500.4050, L700.6800, L100.0100 #### [facility] [address] [place], [address] RBC (Bld) [#/Vol] 5.38 10*6/uL Normal 4.2-5.4 [facility] Comment on above: Performed By: #### L 501.9100, L505.5000, L500.4050, L700.6800, L100.0100 #### [facility] [address] [place], [address] RDW SD 43.9 fl Normal 35.1-43.9 [facility] Comment on above: Performed By: #### L 501.9100, L505.5000, L500.4050, L700.6800, L100.0100 #### [facility] [address] [place], [address] WBC (Bld) [#/Vol] 21.5 10*3/uL High 4.4-11.0 [facility] Comment on above: Performed By: #### L 501.9100, L505.5000, L500.4050, L700.6800, L100.0100 #### [facility] [address] [place], [address] Comprehensive Metabolic Prof ilon 08-26-2024 Albumin [Mass/Vol] 5.0 g/dL Normal 3.5-5.0 [facility] Comment on above: Performed By: #### L 501.9100, L505.5000, L500.4050, L700.6800, L100.0100 #### [facility] [address] [place], [address] Albumin/Globulin [Mass ratio] 1.5 {ratio} Normal 0.9-2.4 [facility] Comment on above: Performed By: #### L 501.9100, L505.5000, L500.4050, L700.6800, L100.0100 #### [facility] [address] [place], [address] ALK PHOS 83 U/L Normal 35-104 [facility] Comment on above: Performed By: #### L 501.9100, L505.5000, L500.4050, L700.6800, L100.0100 #### [facility] [address] [place], [address] ALT [Catalytic activity/Vol] 11 U/L Normal <=34 [facility] Comment on above: Performed By: #### L 501.9100, L505.5000, L500.4050, L700.6800, L100.0100 #### [facility] [address] [place], [address] Anion gap [Moles/Vol] 15 mmol/L Normal 5-15 [facility] Comment on above: Performed By: #### L 501.9100, L505.5000, L500.4050, L700.6800, L100.0100 #### [facility] [address] [place], [address] AST [Catalytic activity/Vol] 25 U/L Normal <=31 [facility] Comment on above: Result Comment: Hemo lysis present, Results??could be affected. ?? Performed By: #### L 501.9100, L505.5000, L500.4050, L700.6800, L100.0100 #### [facility] [address] [place], [address] Bilirubin [Mass/Vol] 0.50 mg/dL Normal 0.00-1.30 [facility] Comment on above: Performed By: #### L 501.9100, L505.5000, L500.4050, L700.6800, L100.0100 #### [facility] [address] [place], [address] BUN/CRE 9.2 RATIO Low 10-20 [facility] Comment on above: Performed By: #### L 501.9100, L505.5000, L500.4050, L700.6800, L100.0100 #### [facility] [address] [place], [address] Calcium [Mass/Vol] 9.4 mg/dL Normal 7.6-11.0 [facility] Comment on above: Performed By: #### L 501.9100, L505.5000, L500.4050, L700.6800, L100.0100 #### [facility] [address] [place], [address] Chloride [Moles/Vol] 104 mmol/L Normal 96-108 [facility] Comment on above: Performed By: #### L 501.9100, L505.5000, L500.4050, L700.6800, L100.0100 #### [facility] [address] [place], [address] CO2 [Moles/Vol] 25.8 mmol/L Normal 22.0-29.0 [facility] Comment on above: Performed By: #### L 501.9100, L505.5000, L500.4050, L700.6800, L100.0100 #### [facility] [address] [place], [address] Creatinine [Mass/Vol] 0.93 mg/dL Normal 0.70-1.20 [facility] Comment on above: Performed By: #### L 501.9100, L505.5000, L500.4050, L700.6800, L100.0100 #### [facility] [address] [place], [address] ECRCL 70.14 ml/min Normal 50-250 [facility] Comment on above: Performed By: #### L 501.9100, L505.5000, L500.4050, L700.6800, L100.0100 #### [facility] [address] [place], [address] GFR/1.73 sq M.predicted among non-blacks MDRD (S/P/Bld) [Vol rate/Area] 79 mL/min/{1.73_m2} Normal >60 [facility] Comment on above: Result Comment: mL/m in/1.73m2 CKD-EPI Creatinine Equation (2020) Performed By: #### L 501.9100, L505.5000, L500.4050, L700.6800, L100.0100 #### [facility] [address] [place], [address] Globulin (S) [Mass/Vol] 3.3 g/dL Normal 2.2-4.2 [facility] Comment on above: Performed By: #### L 501.9100, L505.5000, L500.4050, L700.6800, L100.0100 #### [facility] [address] [place], [address] Glucose [Mass/Vol] 129 mg/dL High 70-99 [facility] Comment on above: Performed By: #### L 501.9100, L505.5000, L500.4050, L700.6800, L100.0100 #### [facility] [address] [place], [address] Potassium [Moles/Vol] 3.9 mmol/L Normal 3.3-5.1 [facility] Comment on above: Result Comment: Hemo lysis present, Results??could be affected. ?? Performed By: #### L 501.9100, L505.5000, L500.4050, L700.6800, L100.0100 #### [facility] [address] [place], [address] Sodium [Moles/Vol] 145 mmol/L Normal 133-145 [facility] Comment on above: Performed By: #### L 501.9100, L505.5000, L500.4050, L700.6800, L100.0100 #### [facility] [address] [place], [address] T PROT 8.3 g/dL Normal 5.9-8.4 [facility] Comment on above: Performed By: #### L 501.9100, L505.5000, L500.4050, L700.6800, L100.0100 #### [facility] [address] [place], [address] Urea nitrogen [Mass/Vol] 9 mg/dL Normal 4-19 [facility] Comment on above: Performed By: #### L 501.9100, L505.5000, L500.4050, L700.6800, L100.0100 #### [facility] [address] [place], [address] Emergency Department Summary on 08-26-2024 Emergency Department Summary [facility] Medical Records Department [address] [place] [address] Emergency Department Summary 08/26/24 MR#: [id number] Acct: [id number] Name: PAT MEDINA Rep #: [id number] : 1980 44 From: Xavi Biggs MD [...] was several years ago. Here for evaluation. [facility] Medical History Marijuana use Right rotator cuff [...] auscultation bilaterally. (more content not included)... Normal [facility] Lipaseon 08-26-2024 Lipase [Catalytic activity/Vol] 79 U/L High 13-75 [facility] Comment on above: Result Comment: Padma gee note: LIPASE revised reference range effective 22. New Lipase methodology. Expected to produce lower values than the previous assay method. NEW Reference Range: 13 - 75 U/L Performed By: #### L 501.9100, L505.5000, L500.4050, L700.6800, L100.0100 #### [facility] [address] [place], [address] M100.678on 08-26-2024 M100.678 Pending SARS-CoV-2 (COVID 19) Negative INFLUENZA A Negative INFLUENZA B Negative RSV PCR Negative Normal [facility] Comment on above: Performed By: #### M 100.678 ####[facility] [address] [place], [address] ,Serum,hCG Quali.on 08-26-2024 HCG, SERUM QUAL Negative Normal [facility] Comment on above: Performed By: #### L 501.9100, L505.5000, L500.4050, L700.6800, L100.0100 #### [facility] [address] [place], [address] Urinalysis, Completeon 08-26 AMORPHOUS 1+ URATE Normal [facility] Comment on above: Order Comment: COLLE CTOR TO SPECIFY Performed By: #### L 501.9100, L505.5000, L500.4050, L700.6800, L100.0100 #### [facility] [address] [place], [address] EPI,SQUAMOUS 0-5 SEEN Normal 5-10 [facility] Comment on above: Order Comment: COLLE CTOR TO SPECIFY Performed By: #### L 501.9100, L505.5000, L500.4050, L700.6800, L100.0100 #### [facility] [address] [place], [address] RBC 0-5 SEEN Normal 0-5 [facility] Comment on above: Order Comment: CANDIDO CTOR TO SPECIFY Performed By: #### L 501.9100, L505.5000, L500.4050, L700.6800, L100.0100 #### [facility] [address] [place], [address] WBC 0-5 SEEN Normal 0-5 [facility] Comment on above: Order Comment: COLLE CTOR TO SPECIFY Performed By: #### L 501.9100, L505.5000, L500.4050, L700.6800, L100.0100 #### [facility] [address] [place], [address] BACTERIA 0 SEEN Normal None Seen [facility] Comment on above: Order Comment: COLLE CTOR TO SPECIFY Performed By: #### L 501.9100, L505.5000, L500.4050, L700.6800, L100.0100 #### [facility] [address] [place], [address] Mucus Ql (Urine sed) 0 SEEN Normal [facility] Comment on above: Order Comment: COLLE CTOR TO SPECIFY Performed By: #### L 501.9100, L505.5000, L500.4050, L700.6800, L100.0100 #### [facility] [address] [place], [address] CNPNon 08-18-2024 CNPN Normal [facility] Plastic Surgery Visit Report on 08-14-2024 Plastic Surgery Visit Report [facility] [address], [address] [place], [place] [address] OFFICE VISIT Date of Service: 08/14/24 MR#: [id number] Acct: [id number] Name: PAT MEDINA Rep #: [id number] : 1980 Provider: Dr. Constanza esposito MD Age/Sex: 44/F Location: [facility] Status: Signed Intake Vital Signs 07/20/24 [...] Foreign body reaction of the skin L92.3 [facility] Medical History Marijuana use Right rotator [...] needed 08/14/24 1640 Date Constanza Cordova MD [facility] Signature: Date (if applicable) CC: [facility] Large Joint Arthro/Inj: R sh [...] the patient voiced understanding of these instructions. [facility] CNOVon 07-31-2024 CNOV Normal [facility] CNOVon 07-27-2024 CNOV Normal [facility] Emergency Department Summary on 07-20-2024 Emergency Department Summary [facility] Medical Records Department [address] [place] [address] Emergency Department Summary 07/20/24 MR#: [id number] Acct: [id number] Name: PAT MEDINA Rep #: [id number] : 1980 44 From: Cesar Marroquin DO [...] days. Therefore since she has been taking agdj-guw-zsquutr medication as well as her prescription medication without symptom improvement she presents for pain control. [facility] Medical History Marijuana use Right rotator cuff [...] intact; AIN/ (more content not included)... Normal [facility] Discharge Instructionon 06-28 Discharge Instruction [facility] Medical Records Department [address] [place] [address] Instructions for Home/Discharge Instructions 07/19/24 1251 MR#: [id number] Acct: [id number] Name: PAT MEDINA Rep #: [id number] : 1980 44 From: Constanza Cordova MD PCP: Dr. Maile Norman MD Status:REG [facility] Discharge Instructions Dressing / Incision Additional Dressing/Incision [...] Care Provider: Maile Norman Instructions Print Language: Uruguayan Discharge Orders/Prescriptions Prescriptions: New cephalexin 500 mg [...] 07/19/24 1254 Constanza Cordova MD CC: Dr. aMile Norman MD Signed [facility] MR/POSTOP.ANE 07-19-2024 MR/POSTOP.[facility] Medical Records Department [address] [place] [address] Anesthesia Postop Eval I 07/19/24 1257 MR#: [id number] Acct: [id number] Name: PAT MEDINA Rep #: [id number] : 1980 44 From: Trinity Wright CRNA PCP: Dr. Maile Norman MD Status:[facility] Y Race: C Location: [place] [address] Anesthesia: Postop Eval I Current Vital Signs [...] completed: Yes 07/19/24 1258 Date Trinity Wright LEARNING DISABILITIES RESOURCE TEACHER Cosigner Signature: Date CC: Signed [facility] MR/IMBALLPI6uq 07-19-2024 MR/POST[address] Medical Records Department [address] [place] [address] Anesthesia Postop Eval II 07/19/241913 MR#: [id number] Acct: [id number] Name: PAT MEDINA Rep #: [id number] : 1980 44 From: Samy Rae MD PCP: Dr. Maile Norman MD Status:[facility] Y Race: C Location: 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 Spontaneous unlabored Yes 07/19/24 12:58 LEARNING DISABILITIES RESOURCE TEACHER.JSWI respirations Mental status Awake 07/19/24 12:58 LEARNING DISABILITIES RESOURCE TEACHER.JSWI nausea No 07/19/24 12:58 LEARNING DISABILITIES RESOURCE TEACHER.JSWI Vomiting No 07/19/24 12:58 LEARNING DISABILITIES RESOURCE TEACHER.JSWI Anesthesia Postop Eval I: Fluid Summary Crystalloid volume administer 1,200 07/19/24 12:58 LEARNING DISABILITIES RESOURCE TEACHER.JSWI (ml) Colloids volume administered ( ml) Blood Product volume administered (ml) Total IV fluid infused 1,200 07/19/24 12:58 LEARNING DISABILITIES RESOURCE TEACHER.JSWI Anesthesia Postop Eval I: Summary Notes Anesthesia Complication No 07/19/24 12:58 LEARNING DISABILITIES RESOURCE TEACHER.JSWI Anesthesia Complication Comment: Post-operative progress note Anesthesia: Postop Eval II Evaluation Mental status: Awake and Calm Pain Level: 1 nausea: No Vomiting: No Complications Anesthesia Complication: No 07/19/241913 Date Samy Rae MD Cosigner Signature: Date CC: Signed Normal [facility] Operative Reporton Operative Report [facility] Medical Records Department [address] [place] [address] Operative Report 07/19/24 1254 MR#: [id number] Acct: [id number] Name: PAT MEDINA Rep #: [id number] : 1980 44 From: Constanza Cordova MD PCP: Dr. Maile Norman MD Status:REG [facility] Location: [place] [address] Problems Associated Problem List Diagnoses (1) Neoplasm of uncertain behavior of connective and other soft tissue: Operative Report (Standard) Operative Information Date of Procedure: 07/19/24 Pre-Operative Diagnosis: Subcutaneous cyst left forearm Post-Operative Diagnosis: Same Surgery/Procedure Performed: Excision cyst left forearm (3.0 cm) teletype clerk: No Type of Anesthesia: General RN Documented [...] Documentation VTE Mechan Device Prophylaxis: SCD's 07/19/24 6525 Cosigner Signature (if applicable): CC: Dr. Maile Norman MD; Dr. Constanza Cordova MD Signed Normal [facility] Surgery Specimen Level IIIon 07-19-2024 Surgery Specimen Level III -------- Patient Age/Sex Location Account Attending Physician -------- PAT MEDINA 44/F [facility] [id number] Dr. Constanza Cordova MD -------- Specimen: [id number] Received: 07/19/24 Status: JEAN Bro Num: [id number] Spec Type: Cyst Subm Dr: Dr. Constanza [...] entirely in one cassette. . 07/19/2024 TC:2 CPT:73719 -------- Patient Age/Sex Location Account Attending Physician -------- PAT MEDINA 44/F [facility] [id number] Dr. Constanza Cordova MD -------- Signed (signature on file) Dr. Dusty Armstrong MD 07/20/24 1244 -------- Normal [facility] Comment on above: Performed By: #### L 400.760 #### [facility] [address] [place], [place], [address] CNPNon 07-16-2024 CNPN Normal [facility] CBC W Auto Differential pane l (Bld)on 07-13-2024 Basophils (Bld) [#/Vol] 0.10 10*3/uL [facility] Basophils/100 WBC (Bld) 1.0 % [facility] Differential cell count method Nom (Bld) Auto [facility] Eosinophils (Bld) [#/Vol] 0.27 10*3/uL [facility] Eosinophils/100 WBC (Bld) 2.7 % [facility] Erythrocyte distribution width (RBC) [Ratio] 12.2 % 11.5 - 15.0 % [facility] Hematocrit (Bld) [Volume fraction] 41.9 % 36.0 - 46.0 % [facility] Hemoglobin (Bld) [Mass/Vol] 14.2 g/dL 11.5 - 15.5 g/dL [facility] Immature granulocytes (Bld) [#/Vol] 0.03 10*3/uL [facility] Immature granulocytes/100 WBC (Bld) 0.3 % [facility] Monocytes (Bld) [#/Vol] 0.74 10*3/uL NINF [facility] Monocytes/100 WBC (Bld) 7.5 % [facility] Neutrophils (Bld) [#/Vol] 5.52 10*3/uL [facility] Neutrophils/100 WBC (Bld) 56.1 % [facility] Nucleated RBC (Bld) [#/Vol] NINF [facility] Nucleated RBC/100 WBC (Bld) [Ratio] 0.0 % /100 WBC [facility] Platelet mean volume (Bld) [Entitic vol] 9.6 fL 9.0 - 12.7 fL [facility] Platelets (Bld) [#/Vol] 308 10*3/uL [facility] RBC (Bld) [#/Vol] 4.43 10*6/uL 3.90 - 5.2 0 m/uL [facility] WBC (Bld) [#/Vol] 9.85 10*3/uL [facility] Basophils (Bld) [#/Vol] 0.10 10*3/uL Normal <0.11 [facility] Comment on above: Order Comment: Speci men Type: BLOOD SPECIMENOrdering Facility: [facility] Address: [address] [place] [address] Performed By: #### 5 7021-8 ####[facility] LABCLIA [id number] [place] [address] [place] Basophils/100 WBC (Bld) 1.0 % Normal [facility] Comment on above: Order Comment: Speci men Type: BLOOD SPECIMENOrdering Facility: [facility] Address: [address] [place] [address] Performed By: #### 5 7021-8 ####[facility]CL[facility] [id number] [place] [address] [place] Differential cell count method Nom (Bld) Auto Normal [facility] Comment on above: Order Comment: Speci men Type: BLOOD SPECIMENOrdering Facility: [facility] Address: [address] [place] [address] Performed By: #### 5 7021-8 ####[facility]CLIA [id number] [place] [address] [place] Eosinophils (Bld) [#/Vol] 0.27 10*3/uL Normal <0.46 [facility] Comment on above: Order Comment: Speci men Type: BLOOD SPECIMENOrdering Facility: [facility] Address: [address] [place] [address] Performed By: #### 5 7021-8 ####[facility]CL[facility] [id number] [place] [address] [place] Eosinophils/100 WBC (Bld) 2.7 % Normal [facility] Comment on above: Order Comment: Speci men Type: BLOOD SPECIMENOrdering Facility: [facility] Address: [address] [place] [address] Performed By: #### 5 7021-8 ####[facility] LABIA [id number] [place] [address] [place] Erythrocyte distribution width (RBC) [Ratio] 12.2 % Normal 11.5-15.0 [facility] Comment on above: Order Comment: Speci men Type: BLOOD SPECIMENOrdering Facility: [facility] Address: [address] [place] [address] Performed By: #### 5 7021-8 ####[facility]CL[facility] [id number] [place] [address] [place] Hematocrit (Bld) [Volume fraction] 41.9 % Normal 36.0-46.0 [facility] Comment on above: Order Comment: Speci men Type: BLOOD SPECIMENOrdering Facility: [facility] Address: [address] [place] [address] Performed By: #### 5 7021-8 ####[facility]CL[facility] [id number] [place] [address] [place] Hemoglobin (Bld) [Mass/Vol] 14.2 g/dL Normal 11.5-15.5 [facility] Comment on above: Order Comment: Speci men Type: BLOOD SPECIMENOrdering Facility: [facility] Address: [address] [place] [address] Performed By: #### 5 7021-8 ####[facility]CL[facility] [id number] [place] [address] [place] Immature granulocytes (Bld) [#/Vol] 0.03 10*3/uL Normal <0.10 [facility] Comment on above: Order Comment: Speci men Type: BLOOD SPECIMENOrdering Facility: [facility] Address: [address] [place] [address] Performed By: #### 5 7021-8 ####[facility]CL[facility] [id number] [place] [address] [place] Immature granulocytes/100 WBC (Bld) 0.3 % Normal [facility] Comment on above: Order Comment: Speci men Type: BLOOD SPECIMENOrdering Facility: [facility] Address: [address] [place] [address] Performed By: #### 5 7021-8 ####[facility] LABIA [id number] [place] [address] [place] Lymphocytes (Bld) [#/Vol] 3.19 10*3/uL Normal 1.00-4.00 [facility] Comment on above: Order Comment: Speci men Type: BLOOD SPECIMENOrdering Facility: [facility] Address: [address] [place] [address] Performed By: #### 5 7021-8 ####[facility] LABIA [id number] [place] [address] [place] Lymphocytes/100 WBC (Bld) 32.4 % Normal [facility] Comment on above: Order Comment: Speci men Type: BLOOD SPECIMENOrdering Facility: [facility] Address: [address] [place] [address] Performed By: #### 5 7021-8 ####[facility] LABIA [id number] [place] [address] [place] MCH (RBC) [Entitic mass] 32.1 pg Normal 26.0-34.0 [facility] Comment on above: Order Comment: Speci men Type: BLOOD SPECIMENOrdering Facility: [facility] Address: [address] [place] [address] Performed By: #### 5 7021-8 ####[facility] LABIA [id number] [place] [address] [place] MCHC (RBC) [Mass/Vol] 33.9 g/dL Normal 30.5-36.0 [facility] Comment on above: Order Comment: Speci men Type: BLOOD SPECIMENOrdering Facility: [facility] Address: [address] [place] [address] Performed By: #### 5 7021-8 ####[facility] LABIA [id number] [place] [address] [place] MCV (RBC) [Entitic vol] 94.6 fL Normal 80.0-100.0 [facility] Comment on above: Order Comment: Speci men Type: BLOOD SPECIMENOrdering Facility: [facility] Address: [address] [place] [address] Performed By: #### 5 7021-8 ####[facility] LABIA [id number] [id number] [address] [place] Monocytes (Bld) [#/Vol] 0.74 10*3/uL Normal <0.87 [facility] Comment on above: Order Comment: Speci men Type: BLOOD SPECIMENOrdering Facility: [facility] Address: [address] [place] [address] Performed By: #### 5 7021-8 ####[facility]CLIA [id number] [place] [address] [place] Monocytes/100 WBC (Bld) 7.5 % Normal [facility] Comment on above: Order Comment: Speci men Type: BLOOD SPECIMENOrdering Facility: [facility] Address: [address] [place] [address] Performed By: #### 5 7021-8 ####[facility]CLIA [id number] [place] [address] [place] Neutrophils (Bld) [#/Vol] 5.52 10*3/uL Normal 1.45-7.50 [facility] Comment on above: Order Comment: Speci men Type: BLOOD SPECIMENOrdering Facility: [facility] Address: [address] [place] [address] Performed By: #### 5 7021-8 ####[facility]CLIA [id number] [place] [address] [place] Neutrophils/100 WBC (Bld) 56.1 % Normal [facility] Comment on above: Order Comment: Speci men Type: BLOOD SPECIMENOrdering Facility: [facility] Address: [address] [place] [address] Performed By: #### 5 7021-8 ####[facility]CLIA [id number] [place] [address] [place] Nucleated RBC (Bld) [#/Vol] 10*3/uL Normal <0.01 [facility] Comment on above: Order Comment: Speci men Type: BLOOD SPECIMENOrdering Facility: [facility] Address: [address] [place] [address] Performed By: #### 5 7021-8 ####[facility]CL[facility] [id number] [place] [address] [place] Nucleated RBC/100 WBC (Bld) [Ratio] 0.0 /100 WBC Normal [facility] Comment on above: Order Comment: Speci men Type: BLOOD SPECIMENOrdering Facility: [facility] Address: [address] [place] [address] Performed By: #### 5 7021-8 ####[facility]CLIA [id number] [place] [address] [place] Platelet mean volume (Bld) [Entitic vol] 9.6 fL Normal 9.0-12.7 [facility] Comment on above: Order Comment: Speci men Type: BLOOD SPECIMENOrdering Facility: [facility] Address: [address] [place] [address] Performed By: #### 5 7021-8 ####[facility] LABIA [id number] [place] [address] [place] Platelets (Bld) [#/Vol] 308 10*3/uL Normal 150-400 [facility] Comment on above: Order Comment: Speci men Type: BLOOD SPECIMENOrdering Facility: [facility] Address: [address] [place] [address] Performed By: #### 5 7021-8 ####[facility]CLIA [id number] [place] [address] [place] RBC (Bld) [#/Vol] 4.43 10*6/uL Normal 3.90-5.20 [facility] Comment on above: Order Comment: Speci men Type: BLOOD SPECIMENOrdering Facility: [facility] Address: [address] [place] [address] Performed By: #### 5 7021-8 ####[facility]CLIA [id number] [place] [address] [place] WBC (Bld) [#/Vol] 9.85 10*3/uL Normal 3.70-11.00 [facility] Comment on above: Order Comment: Speci men Type: BLOOD SPECIMENOrdering Facility: [facility] Address: [address] [place] [address] Performed By: #### 5 7021-8 ####[facility]CLIA [id number] [place] [address] [place] CNOVon 07-13-2024 CNOV Normal [facility] metabolic 2000 panelon 07-13-2024 Albumin [Mass/Vol] 3.8 g/dL Low 3.9-4.9 [facility] Comment on above: Order Comment: Speci men Type: BLOOD SPECIMENOrdering Facility: [facility] Address: [address] [place] [address] Performed By: #### 2 4323-8 ####[facility]CLIA [id number] [place] [address] [place] ALP [Catalytic activity/Vol] 67 U/L Normal 34-123 [facility] Comment on above: Order Comment: Speci men Type: BLOOD SPECIMENOrdering Facility: [facility] Address: [address] [place] [address] Performed By: #### 2 4323-8 ####[facility]CLIA [id number] [place] [address] [place] ALT [Catalytic activity/Vol] 18 U/L Normal 7-38 [facility] Comment on above: Order Comment: Speci men Type: BLOOD SPECIMENOrdering Facility: [facility] Address: [address] [place] [address] Performed By: #### 2 4323-8 ####[facility]CLIA [id number] [place] [address] [place] Anion gap [Moles/Vol] 6 mmol/L Low 8-15 [facility] Comment on above: Order Comment: Speci men Type: BLOOD SPECIMENOrdering Facility: [facility] Address: [address] [place] [address] Performed By: #### 2 4323-8 ####[facility] LABCLIA [id number] [place] [id number] [place] AST [Catalytic activity/Vol] 21 U/L Normal 13-35 [facility] Comment on above: Order Comment: Speci men Type: BLOOD SPECIMENOrdering Facility: [facility] Address: [address] [place] [address] Performed By: #### 2 4323-8 ####[facility] LABCLIA [id number] [place] [address] [place] Bilirubin [Mass/Vol] mg/dL Low 0.2-1.3 [facility] Comment on above: Order Comment: Speci men Type: BLOOD SPECIMENOrdering Facility: [facility] Address: [address] [place] [address] Performed By: #### 2 4323-8 ####[facility]CLIA [id number] [place] [address] [place] Calcium [Mass/Vol] 9.0 mg/dL Normal 8.5-10.2 [facility] Comment on above: Order Comment: Speci men Type: BLOOD SPECIMENOrdering Facility: [facility] Address: [address] [place] [address] Performed By: #### 2 4323-8 ####[facility] LABCLIA [id number] [place] [address] [place] Chloride [Moles/Vol] 105 mmol/L Normal 98-107 [facility] Comment on above: Order Comment: Speci men Type: BLOOD SPECIMENOrdering Facility: [facility] Address: [address] [place] [address] Performed By: #### 2 4323-8 ####[facility]CLIA [id number] [place] [address] [place] CO2 [Moles/Vol] 30 mmol/L Normal 22-30 [facility] Comment on above: Order Comment: Speci men Type: BLOOD SPECIMENOrdering Facility: [facility] Address: [address] [place] [address] Performed By: #### 2 4323-8 ####[facility] LABIA [id number] [place] [address] [place] Creatinine [Mass/Vol] 0.79 mg/dL Normal 0.58-0.96 [facility] Comment on above: Order Comment: Speci men Type: BLOOD SPECIMENOrdering Facility: [facility] Address: [address] [place] [address] Performed By: #### 2 4323-8 ####[facility] LABIA [id number] [place] [address] [place] Creatinine and Glomerular filtration rate.predicted panel (S/P/Bld) 96 mL/min/1.73m??? Normal >=60 [facility] Comment on above: Order Comment: Speci men Type: BLOOD SPECIMENOrdering Facility: [facility] Address: [address] [place] [address] Result Comment: Cristal mated Glomerular Filtration Rate [...] actual GFR. Performed By: #### 2 4323-8 ####[facility] LABCLIA [id number] [place] [id number] [place] Glucose [Mass/Vol] 68 mg/dL Low 74-99 [facility] Comment on above: Order Comment: Speci men Type: BLOOD SPECIMENOrdering Facility: [facility] Address: [address] [place], [place] [address] Result Comment: The [place] [employer] Association (ADA) provides guidance for cutoff [...] Standards of Medical Care in Diabetes 2016, [place] [employer]. Diabetes Care. 2016.39(Suppl 1). Performed By: #### 2 4323-8 ####[facility] LABCLIA [id number] [place] [address] [place] Potassium [Moles/Vol] 4.3 mmol/L Normal 3.7-5.1 [facility] Comment on above: Order Comment: Speci men Type: BLOOD SPECIMENOrdering Facility: [facility] Address: [address] [place], [place] [address] Performed By: #### 2 4323-8 ####[facility] LABCLIA [id number] [place] [address] [place] Protein [Mass/Vol] 5.9 g/dL Low 6.3-8.0 [facility] Comment on above: Order Comment: Speci men Type: BLOOD SPECIMENOrdering Facility: [facility] Address: [address] [place] [address] Performed By: #### 2 4323-8 ####[facility] LABCLIA [id number] [place] [address] [place] MANUEL Sodium [Moles/Vol] 141 mmol/L Normal 136-144 [facility] Comment on above: Order Comment: Speci men Type: BLOOD SPECIMENOrdering Facility: [facility] Address: [address] [place] [address] Performed By: #### 2 4323-8 ####[facility] LABCLIA [id number] [place] [address] [place] Urea nitrogen [Mass/Vol] 8 mg/dL Normal 7-21 [facility] Comment on above: Order Comment: Speci men Type: BLOOD SPECIMENOrdering Facility: [facility] Address: [address] [place] [address] Performed By: #### 2 4323-8 ####[facility] LABCLIA [id number] [place] [address] [place] CNOVon 07-11-2024 CNOV Normal [facility] Estradiol SerPl-mCncon 07-10 E2 [Mass/Vol] 380 pg/mL Normal [facility] Comment on above: Order Comment: Speci men Type: BLOOD SPECIMENOrdering Facility: [facility] Address: [address] [place] [address] Result Comment: This test is not suitable for patients receiving treatment with the drug Fulvestrant (Faslodex). The drug causes an interference leading to falsely elevated estradiol results.Menstrual cycle Estradiol reference ranges:Follicular : < 234 pg/mLOvulation : 41 to 398 pg/mLLuteal : < 342 pg/mLPregnancy Estradiol reference ranges vary by gestational period:First trimester : 154 to 3243 pg/mLSecond trimester : 1561 to 39948 pg/mLThird trimester : 8285 to >96179 pg/mLPost-menopausal Estradiol reference range: < 41 pg/mLReference: 1. Estradiol - E2 (Estradiol III) [package insert V 3.0 U[place]ayan]. [facility], [place], [place], November 2015. Performed By: #### 2 243-4, 04905-2 ####[facility] LABCLIA [id number] [place] [address] [place] FSH SerPl-aCncon 07-10-2024 Follitropin Qn 13.9 m[IU]/mL Normal See comment [facility] Comment on above: Order Comment: Speci men Type: BLOOD SPECIMENOrdering Facility: [facility] Address: [address] [place] [address] Result Comment: Refe rence range: Follicular: 3.5-12.5 mIU/mL Ovulation: 4.7-21.5 mIU/mL Luteal: 1.7-7.7 mIU/mL Postmenopausal: 25.8-134.8 mIU/mL Performed By: #### 2 243-4, 18358-8 ####[facility] LABCLIA [id number] [facility] [id number] [facility] Plastic Surgery Visit Report on 07-10-2024 Plastic Surgery Visit Report [facility] [address], [address] [place], [place] [address] OFFICE VISIT Date of Service: 07/10/24 MR#: [id number] Acct: [id number] Name: PAT MEDINA Rep #: [id number] : 1980 Provider: Dr. Constanza esposito MD Age/Sex: 44/F Location: [facility] Status: Signed Intake Vital Signs 07/03/24 09:54 [...] of connect (more content not included)... Normal [facility] CNOVon 07-09-2024 CNOV Normal [facility] HIGH RISK HUMAN PAPILLOMA GENEVA (HPV), PCR FOR DETECTION AND GENOTYPINGon 07-09-2024 HPV 16 Ag Ql (Unsp spec) Not detected Normal Not detected [facility] Comment on above: Order Comment: Speci men Type: FLUID SPECIMENOrdering Facility: [facility] Address: [address] [place] [address] Performed By: #### H PVHRT ####[facility] LABCLIA [id number] [place] [address] [place] HPV 18 Ag Ql (Unsp spec) Not detected Normal Not detected [facility] Comment on above: Order Comment: Speci men Type: FLUID SPECIMENOrdering Facility: [facility] Address: [address] [place] [address] Performed By: #### H PVHRT ####[facility] LABIA [id number] [place] [address] [place] HPV 31+33+35+39+45+51+52+ 56+58+59+66+68 DNA MARY KAY+probe Ql (Cvx) Not detected Normal Not detected [facility] Comment on above: Order Comment: Speci men Type: FLUID SPECIMENOrdering Facility: [facility] Address: [address] [place] [address] Result Comment: High Risk HPV Other Type includes HPV types 31, 33, 35, 39, 45, 51, 52, 56, 58, 59, 66 and 68. Performed By: #### H PVHRT ####[facility] LABIA [id number] [place] [address] [place] PAP TESTon 07-09-2024 ADEQUACY Normal [facility] Comment on above: Order Comment: Speci men Type: FLUID SPECIMENOrdering Facility: [facility] Address: [address] [place] [address] Result Comment: Sati sfactory for interpretation.Limited cellularity due to acellular background materialNo endocervical component Performed By: #### L [id number] ####[facility] LABIA [id number] [place] [address] [place] CASE REPORT Normal [facility] Comment on above: Order Comment: Speci men Type: FLUID SPECIMENOrdering Facility: [facility] Address: [address] [place] [address] Result Comment: Gyne cologic Cytology Report Case: [id number] Provider: Cecile Patricia APRN.[employer] DEVELOPER Collected: 07/09/2024 08:18 AMOrdering Location: OB/Gynecology Received: 07/09/2024 12:35 PMFirst Screen: Brigida KoSpecimen: Pap Test, ThinPrep, Cervix Performed By: #### L [id number] ####[facility] LABCLIA [id number] [place] [address] [place] CLINICAL HISTORY, CYTOLOGY, DISBURSING OFFICER Routine Exam Normal [facility] Comment on above: Order Comment: Speci men Type: FLUID SPECIMENOrdering Facility: [facility] Address: [address] [place] [address] Result Comment: No M enses, Other (Specify)ablation Performed By: #### L [id number] ####[facility] LABCLIA [id number] [address] [place] FINAL PERFORMING LAB Normal [facility] Comment on above: Order Comment: Speci men Type: FLUID SPECIMENOrdering Facility: [facility] Address: [address] [place] [address] Result Comment: Tech nical component, oil sales and service rep screening performed at [facility], [address] [place] [address] CLIA# [id number] interpretation performed at [facility], [address] [place] [address] CLIA# [id number] Director: Jose Guadalupe Madden M.D. Performed By: #### L [id number] ####[facility] LABCLIA [id number] [address] [place] INTERPRETATION, CYTOLOGY, DISBURSING OFFICER Normal [facility] Comment on above: Order Comment: Speci men Type: FLUID SPECIMENOrdering Facility: [facility] Address: [address] [place] [address] Result Comment: Nega tive for intraepithelial lesion or malignancy. Performed By: #### L [id number] ####[facility] LABCLIA [id number] [place] [address] [place] PAP DISCLAIMER COMMENT The Pap Smear is a screening test for cervical cancer. False negative results occur with all screening tests, emphasizing the need for rescreening at recommended intervals, and clinical correlation. Normal [facility] Comment on above: Order Comment: Speci men Type: FLUID SPECIMENOrdering Facility: [facility] Address: [address] [place] [address] Performed By: #### L [id number] ####[facility] LABIA [id number] [place] [address] [place] PAP BUILDING SERVICES SUPERVISOR COMMENT Normal [facility] Comment on above: Order Comment: Speci men Type: FLUID SPECIMENOrdering Facility: [facility] Address: [address] [place] [address] Performed By: #### L [id number] ####[facility] LABIA [id number] [place] [address] [place] CNPNon 07-07-2024 CNPN Normal [facility] Forearm 2 Viewson 07-03-2024 Forearm 2 Views [facility] [address] [place], [place] [address] Forearm 2 Views MR#: [id number] Acct: [id number] Name: PAT MEDINA Rep #: [id number] : 1980 F 44 From: Tim Garcia MD PCP: Dr. Maile Norman MD Status: REG CLI Study: Forearm 2 Views Date of Exam: 07/03/24 Exam# [id number] Ordering Dr: Constanza Cordova MD [id number] STUDY: X-RAY - LEFT RADIUS AND ULNA [...] 16:05 EST Reading Location ID and State: [address] [place] [address] , Service support , CC: Dr. Maile Norman MD; Dr. Constanza Cordova MD Color Dipper: Signed Normal [facility] Plastic Surgery Visit Report on 07-03-2024 Plastic Surgery Visit Report [facility] [address], [address] [place], [place] [address] OFFICE VISIT Date of Service: 07/03/24 MR#: [id number] Acct: [id number] Name: PAT MEDINA Rep #: [id number] : 1980 Provider: Dr. Constanza esposito MD Age/Sex: 44/F Location: [facility] Status: Signed Intake Vital Signs [...] pt here with for result of ultrasound [facility] Medical History Right rotator cuff tear [...] vis,est,level 3 (more content not included)... Normal [facility] Emergency Department Summary on 07-02-2024 Emergency Department Summary [facility] Medical Records Department [address] [place] [address] Emergency Department Summary 07/02/24 MR#: [id number] Acct: [id number] Name: PAT MEDINA Rep #: [id number] : 1980 44 From: John Bass DO [...] Excedrin. Patient denies any recent head injuries. [facility] Medical History Right rotator cuff tear Wears [...] mouth swellin (more content not included)... Normal [facility] Other Unlisted US Procedureo n 06-28-2024 Other Unlisted US Procedure [facility] [address] [place], [place] [address] Other Unlisted US Procedure MR#: [id number] Acct: [id number] Name: PAT MEDINA Rep #: [id number] : 1980 F 44 From: Deena Reardon MD PCP: Dr. Maile Norman MD Status: [facility] Study: Other Unlisted US Procedure Date of Exam: 08/21 Exam# [id number] Ordering Dr: Constanza Cordova MD ADDENDUM by Dr. Cristhian Wilhelm MD on 08/16/24 at 1500 This is an addendum to correct report header and technique: Real-Time targeted ultrasound imaging of the soft tissues of the left forearm were obtained. 09/07/24 0757 Date cc: Dr. Maile Norman MD; Dr. Constanza Cordova MD * Signed [id number] EXAM: US ABDOMEN LIMITED CLINICAL INDICATION: lump [...] Maile Norman MD; Dr. Constanza Cordova MD Color Dipper: Signed Normal [facility] MR Shoulder - right WO contr raheel 06-15-2024 IMPRESSION: 1. Postoperative changes of biceps . 2. Rotator cuff tendinosis without evidence of a high-grade tear. 3. Mild to moderate subdeltoid subacromial bursitis. Color Dipper: [facility] Transcribe Date/Time: Jun 15 2024 6:15P Dictated by : SHAWNEE BRICE MD This examination was interpreted and the report reviewed and electronically signed by: SHAWNEE BRICE MD on Jun 15 2024 6:24PM [facility] DIVISION OF RADIOLOGY * * *Final Report* * * DATE OF EXAM: Jun 15 2024 1:17PM [facility] 0240 - [facility] / PROCEDURE REASON: multiple diagnoses * [...] No additional findings. DIVISION OF RADIOLOGY Provider, [facility] - 06/15/2024 * * *Final Report* * * DATE OF EXAM: Jun 15 2024 1:17PM [facility] 0240 - MRI SHOULDER WO IVCON [...] 3. Mild to moderate subdeltoid subacromial bursitis. Color Dipper: PSCB Transcribe Date/Time: Jun 15 2024 6:15P [...] 08-16-2023 MRI SHOULDER WO IVCON RT Normal [facility] Plastic Surgery Visit Report on 06-06-2024 Plastic Surgery Visit Report [facility] [address] [facility], [address] [place] [id number] OFFICE VISIT Date of Service: 06/06/24 MR#: [id number] Acct: [id number] Name: PAT MEDINA Rep #: [id number] : 1980 Provider: Dr. Constanza esposito MD Age/Sex: 44/F Location: [facility] Status: Signed Intake Vital Signs 03/18/24 13:22 [...] bump beside the area. bump is painfule [facility] Medical History Right rotator cuff tear [...] asthma, emphysem (more content not included)... Normal [facility] CNPNon 05-29-2024 CNPN Normal [facility] CNPNon 05-25-2024 CNPN Normal [facility] XR HAND 3V PA/LAT/OBL RTon 1 07-25-2023 XR HAND 3V PA/LAT/OBL RT Normal [facility] XR Hand - right PA and Later al and Obliqueon 05-25-2024 IMPRESSION: Negative ulnar variance. No acute radiographic abnormalities identified. Color Dipper: PSCB Transcribe Date/Time: May 25 2024 12:08P Dictated by : OTTONIEL OSHEA MD This examination was interpreted and the report reviewed and electronically signed by: OTTONIEL OSHEA MD on May 25 2024 12:10PM [facility] DIVISION OF RADIOLOGY * * *Final [...] soft tissue swelling. DIVISION OF RADIOLOGY Provider, [facility] - 05/25/2024 * * *Final Report* * [...] ulnar variance. No acute radiographic abnormalities identified. Color Dipper: PSCB Transcribe Date/Time: May 25 2024 12:08P [facility] CN[facility] 05-23-2024 CNOV Normal [facility] CNOVon 05-15-2024 CNOV Normal [facility] CNPNon 05-15-2024 CNPN Normal [facility] CNOVon 05-11-2024 CNOV Normal [facility] HSV+VZV DNA MARY KAY+probe Ql (Un sp spec)on 05-11-2024 HSV 1 DNA MARY KAY+probe Ql (Unsp spec) Not detected Normal Not Detected [facility] Comment on above: Order Comment: Speci men Type: SWABOrdering Facility: [facility] Address: [address] [place] [address] Performed By: #### 3 3027-4 ####[facility] LABCLIA [id number] [place] [address] [place] HSV 2 DNA MARY KAY+probe Ql (Unsp spec) Not detected Normal Not Detected [facility] Comment on above: Order Comment: Speci men Type: SWABOrdering Facility: [facility] Address: [address] [place] [address] Performed By: #### 3 3027-4 ####[facility] LABCLIA [id number] [place] [address] [place] VZV DNA MARY KAY+probe Ql (Unsp spec) Not detected Normal Not Detected [facility] Comment on above: Order Comment: Speci men Type: SWABOrdering Facility: [facility] Address: [address] [place] [address] Performed By: #### 3 3027-4 ####[facility] LABCLIA [id number] [address] [id number] [address] [place] CNOVon 05-10-2024 CNOV Normal [facility] XR FOREARM 2V AP/LAT LTon XR FOREARM 2V AP/LAT LT Normal [facility] XR Radius and Ulna - left AP and Lateralon 05-10-2024 IMPRESSION: No acute osseous abnormality Color Dipper: [facility] Transcribe Date/Time: May 10 2024 12:29P Dictated by : ZACHERY RO MD This examination was interpreted and the report reviewed and electronically signed by: ZACHERY RO MD on May 10 2024 12:30PM [facility] DIVISION OF RADIOLOGY * * *Final [...] spaces are maintained. DIVISION OF RADIOLOGY Provider, [facility] - 05/10/2024 * * *Final [...] maintained. IMPRESSION IMPRESSION: No acute osseous abnormality Color Dipper: PSCB Transcribe Date/Time: May 10 2024 12:29P [...] Provider on 05-10-2024 [facility] LABORATORYOrdered By: Carmen Moreira on 04-29-2024 Appearance [...] E.U./dL Normal 0.2-1.0 AO Auto Urine SS XR Chest PA and Lateralon IMPRESSION: No acute radiographic abnormality. Color Dipper: PSCB Transcribe Date/Time: Mar 07 2024 4:07P Dictated by : ALEX MUNIZ MD This examination was interpreted and the report reviewed and electronically signed by: ALEX MUNIZ MD on Mar 07 2024 4:07PM EST DIVISION OF RADIOLOGY * * *Final [...] changes. DIVISION OF RADIOLOGY Provider, [facility] - 03/07/2024 * * *Final Report* * [...] changes. IMPRESSION IMPRESSION: No acute radiographic abnormality. 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 Surgeon Department of Orthopaedic Surgery [facility] Merline Corcoran LPN 02/17/2024 10:26 AM Signed [...] passing out Date Reviewed: 02/07/2024 Reviewed by: aMureen Alcaraz LPN - Fully Assessed Reason for Visit: Established Patient [175] Primary Visit Diagnosis:S/P right rotator cuff repair [Z98.890] Other Visit Diagnosis:Right shoulder pain, unspecified chronicity [M25.511] Order(s):MRI SHOULDER WO IVCON RIGHT [8725829] Order #: [id number] FUTURE Large Joint Arthro/Inj: R shoulder joint [UEQ942] Order #: [id number] [] bupivacaine (PF) 0.25 % (2.5 mg/mL) [...] (more content not included)... Normal [facility] Large Joint Arthro/Inj: R sh oulder [...] the patient voiced understanding of these instructions. [facility] LABORATORYOrdered By: SYSTEM SYSTEM on 10-10-2023 Lipase [Catalytic activity/Vol] 36 U/L Normal 16 - 77 U/L AO ADM SS LIPon 10-10-2023 Lipase Level 36 U/L Normal 16-77 [facility] ([place]) Comment on above: Performed By: #### L IP #### [address] [address] .Auto Diffon 09-26-2023 Basophil, Absolute 0.2 10 3/mcL Normal 0.0-0.2 [facility] ([place]) Comment on above: Performed By: #### A CLARIBELIWONA, CBC, MDW #### [address] [address] Basophils/100 WBC (Bld) 1.4 % Normal 0.0-2.5 [facility] ([place]) Comment on above: Performed By: #### A IWONA SAN[place]ORD CBC, MDW #### [address] [address] Eosinophil, Absolute 0.0 10 3/mcL Normal 0.0-0.4 [facility] ([place]) Comment on above: Performed By: #### A IWONA SANFORD CBC, MDW #### [address] [address] Eosinophils/100 WBC (Bld) 0.2 % Normal 0.0-7.0 [facility] ([place]) Comment on above: Performed By: #### A IWONA SANFORD CBC, MDW #### [address] [address] Lymphocyte, Absolute 2.6 10 3/mcL Normal 0.8-3.9 [facility] ([place]) Comment on above: Performed By: #### A IWONA SANFORD CBC, MDW #### [address] [address] Lymphocytes/100 WBC (Bld) 20.9 % Normal 10.0-50.0 [facility] ([place]) Comment on above: Performed By: #### A IWONA SANFORD CBC, MDW #### [address] [address] Monocyte, Absolute 0.7 10 3/mcL Normal 0.2-1.0 [facility] ([place]) Comment on above: Performed By: #### A IWONA SANFORD CBC, MDW #### [address] [address] Monocytes/100 WBC (Bld) 5.3 % Normal 1.7-13.0 [facility] ([place]) Comment on above: Performed By: #### A IWONA SANFORD CBC, MDW #### [address] [address] Neutrophils/100 WBC (Bld) 72.2 % Normal 37.0-80.0 [facility] ([place]) Comment on above: Performed By: #### A IWONA SANFORD CBC, MDW #### [place] [address] .MDWon 09-26-2023 Monocyte Distribution Width 19.23 Normal 0.00-20.00 [facility] ([place]) Comment on above: Result Comment: For ED adult patients suspected of sepsis, MDW<=20.0 does not rule out sepsis or risk of sepsis Performed By: #### A IWONA SANFORD CBC, MDW #### [place] [address] .NEUABSon 09-26-2023 Neutrophil, Absolute 9.0 10 3/mcL High 2.9-6.2 [facility] ([place]) Comment on above: Performed By: #### A IWONA SANFORD CBC, MDW #### [place] [address] CBCon 09-26-2023 Erythrocyte distribution width (RBC) [Ratio] 14.3 % Normal 11.5-14.5 [facility] ([place]) Comment on above: Performed By: #### A IWONA SANFORD CBC, MDW #### [place] [address] Hematocrit (Bld) [Volume fraction] 43.0 % Normal 37.0-47.0 [facility] ([place]) Comment on above: Performed By: #### A IWONA SANFORD CBC, MDW #### [place] [address] Hgb 15.1 G/dL Normal 12.0-16.0 [facility] ([place]) Comment on above: Performed By: #### A IWONA SANFORD CBC, MDW #### [place] [address] MCH (RBC) [Entitic mass] 32.6 pg High 27.0-31.2 [facility] ([place]) Comment on above: Performed By: #### A IWONA SANFORD CBC, MDW #### [place] [address] MCHC 35.2 G/dL Normal 33.0-37.0 [facility] ([place]) Comment on above: Performed By: #### A IWONA SANFORD CBC, MDW #### [place] [address] [place], [place] [address] MCV (RBC) [Entitic vol] 92.6 fL Normal 80.0-94.0 [facility] ([place]) Comment on above: Performed By: #### A IWONA SANFORD CBC, MDW #### [address] [address] Platelet 365 10 3/mcL Normal 130-400 [facility] ([place]) Comment on above: Performed By: #### A IWONA SANFORD CBC, MDW #### [address] [address] Platelet mean volume (Bld) [Entitic vol] 7.6 fL Normal 7.4-10.4 [facility] ([place]) Comment on above: Performed By: #### A IWONA SANFORD CBC, MDW #### [address] [address] RBC 4.64 10 6/mcL Normal 4.20-5.40 [facility] ([place]) Comment on above: Performed By: #### A IWONA SANFORD CBC, MDW #### [address] [address] WBC 12.4 10 3/mcL High 4.6-10.8 [facility] ([place]) Comment on above: Performed By: #### A IWONA SANFORD CBC, MDW #### [address] [address] LABORATORYOrdered By: SYSTEM SYSTEM on 09-26-2023 Basophil, [...] SS XR SHOULDER MINIMUM 2 VIEWS RIGHTon 04-01-2024 XR SHOULDER MINIMUM 2 VIEWS RIGHT ORIGINAL [...] 9:41:45 PM Ordering Provider: TU DE ANDA [facility] ([place]) STREP A MOLECULAR (POC)on Procedural Control Valid [facility] Strep A (POCT) Negative Negative [facility] XR Chest PA and Lateralon IMPRESSION: No acute radiographic abnormality. Color Dipper: DARSHAN Transcribe Date/Time: Aug 11 2023 8:47A Dictated by : LIZBETH GONZALEZ DO This examination was interpreted and the report reviewed and electronically signed by: LIZBETH GONZALEZ DO on Aug 11 2023 8:50AM [facility] DIVISION OF RADIOLOGY * * *Final [...] soft tissues: Unremarkable. DIVISION OF RADIOLOGY [facility] * * *Final Report* * [...] Unremarkable. IMPRESSION IMPRESSION: No acute radiographic abnormality. Color Dipper: DARSHAN Transcribe Date/Time: Aug 11 2023 8:47A Dictated by : LIZBETH GONZALEZ DO This examination was interpreted and the report reviewed and electronically signed by: LIZBETH GONZALEZ DO on Aug 11 2023 8:50AM EST [facility] Radiology Study observation (narrative) [facility] XR Chest PA and LateralOrder ed By: Ccf Provider on 08-11-2023 [facility] INFLUENZA A&B MOLECULAR (POC )on 08-01-2023 Flu A (POCT) Negative Negative [facility] Flu B (POCT) Negative Negative [facility] Procedural Control Valid [facility] UA DIP, URINE (POC)on 2022 BILIRUBIN UA (POCT) Negative Negative [facility] CLARITY UA (POCT) Clear [facility] COLOR UA (POCT) Yellow [facility] GLUCOSE UA (POCT) Negative Negative mg/dL [facility] Hemoglobin Ql (U) Negative Negative [facility] KETONE UA (POCT) Negative Negative mg/dL [facility] LEUKOCYTES [facility] (POCT) [facility] NITRITE UA (POCT) Negative Negative [facility] PH UA (POCT) 6.0 4.5 - 8.0 [facility] Protein Ql (U) 30 mg/dL Abnormal Negative mg/dL [facility] SPECIFIC GRAVITY UA (POCT) <=1.005 Abnormal 1.005 - 1.030 [facility] UROBILINOGEN UA (POCT) 0.2 E.U./dL Normal E.U./dL [facility] UA DIP, URINE (POC)on 2022 BILIRUBIN UA (POCT) Negative Negative [facility] CLARITY UA (POCT) Clear [facility] COLOR UA (POCT) Yellow [facility] GLUCOSE UA (POCT) Negative Negative mg/dL [facility] Hemoglobin Ql (U) Trace-intact Abnormal Negative [facility] KETONE UA (POCT) Negative Negative mg/dL [facility] LEUKOCYTES UA (POCT) Large Abnormal Negative [facility] NITRITE UA (POCT) Negative Negative [facility] PH UA (POCT) 6.5 4.5 - 8.0 [facility] Protein Ql (U) Negative Negative mg/dL [facility] SPECIFIC GRAVITY UA (POCT) 1.025 1.005 - 1.030 [facility] UROBILINOGEN UA (POCT) 0.2 E.U./dL Normal E.U./dL [facility] XR Chest PA and Lateralon IMPRESSION: No acute radiographic abnormality. Color Dipper: PSCB Transcribe Date/Time: Mar 30 2023 8:48A Dictated by : OTTONIEL OSHEA MD This examination was interpreted and the report reviewed and electronically signed by: OTTONIEL OSHEA MD on Mar 30 2023 8:49AM [facility] DIVISION OF RADIOLOGY * * *Final [...] soft tissues: Unremarkable. DIVISION OF RADIOLOGY Provider, [facility] - 03/30/2023 * * *Final Report* * [...] Unremarkable. IMPRESSION IMPRESSION: No acute radiographic abnormality. Color Dipper: PSCB Transcribe Date/Time: Mar 30 2023 8:48A Dictated by : OTTONIEL OSHEA MD This examination was interpreted and the report reviewed and electronically signed by: OTTONIEL OSHEA MD on Mar 30 2023 8:49AM EST [facility] Radiology Study observation (narrative) [facility] XR Chest PA and LateralOrder ed By: Ccf Provider on 03-30-2023 [facility] XR SHOULDER MINIMUM 2 VIEWS [...] the resident's findings and interpretation. Interpreted by: Antnoio Abreu MD Preliminary Report By: Anthony Ruffin Electronically signed By Antonio Abreu MD Dictated Date: 03/15/2023 10:45:24 AM Prelim Date: 03/15/2023 10:58:13 AM Sign Date: 03/15/2023 10:58:13 AM Ordering Provider: LAVONNE Solo [facility] ([place] MRI SHOULDER WO/W IVCON RIGH Ton 03-11-2023 [facility] XR Sacrum and Coccyx 3 Views on 12-03-2022 IMPRESSION: NO ACUTE OSSEOUS ABNORMALITY Color Dipper: DARSHAN Transcribe Date/Time: Dec 03 2022 5:09P Dictated by : TYESHA MARX MD This examination was interpreted and the report reviewed and electronically signed by: TYESHA MARX MD on Dec 03 2022 5:09PM [facility] DIVISION OF RADIOLOGY * * *Final [...] --- DIVISION OF RADIOLOGY Provider, [facility] Laura Garcia - 12/03/2022 * * *Final Report* [...] --- IMPRESSION IMPRESSION: NO ACUTE OSSEOUS ABNORMALITY [facility] Transcribe Date/Time: Dec 03 2022 5:09P Dictated by : TYESHA MARX MD This examination was interpreted and the report reviewed and electronically signed by: TYESHA MARX MD on Dec 03 2022 5:09PM [facility] XR Sacrum and Coccyx 3 Views Ordered By: Ccf Provider on 12-03-2022 [facility] XR Sacrum and Coccyx 3 Views on 12-01-2022 Radiology Study observation (narrative) [facility] STREP A MOLECULAR (POC)on Procedural Control Valid [facility] Strep A (POCT) Negative Negative [facility] XR DIGIT GENERAL 3V FRONTAL/ LAT/OBL RIGHTon 03-16-2022 [facility] XR Finger - right AP and Lat eral and obliqueon 03-16-2022 IMPRESSION: Soft tissue swelling. There is no radiopaque foreign body. Color Dipper: [facility] Transcribe Date/Time: Mar 16 2022 12:22P Dictated by : NATY GRAFF MD This examination was interpreted and the report reviewed and electronically signed by: NATY GRAFF MD on Mar 16 2022 12:25PM [facility] DIVISION OF RADIOLOGY * * *Final [...] No underlying fracture. DIV[facility]OLOG[facility] * * *Final Report* * [...] swelling. There is no radiopaque foreign body. Color Dipper: PSCB Transcribe Date/Time: Mar 16 2022 12:22P [...] [facility] Basic Metabolic Panelon 01-2 Anion gap [Moles/Vol] 0 mmol/L Low 3-13 [facility] Comment on above: Performed By: #### H EMDF, BMP3, QWAL2 #### [facility] [address] [place] [address] Calcium [Mass/Vol] 9.4 mg/dL Normal 8.4-10.4 [facility] Comment on above: Performed By: #### H EMDF, BMP3, QWAL2 #### [facility] [address] [place] [address] CO2 [Moles/Vol] 30 mmol/L Normal 22-30 [facility] Comment on above: Performed By: #### H EMDF, BMP3, QWAL2 #### [facility] [address] [place] [address] Creatinine [Mass/Vol] 0.70 mg/dL Normal 0.52-1.25 [facility] Comment on above: Performed By: #### H EMDF, BMP3, QWAL2 #### [facility] [address] [place] [address] eGFR OTHER > 90.0 Normal >60 [facility] Comment on above: Result Comment: KDIG O [...] tubular creatinine secretion. Performed By: #### H EMDF, BMP3, QWAL2 #### [facility] [address] [place] [address] GFR/1.73 sq M.predicted among blacks MDRD (S/P/Bld) [Vol rate/Area] mL/min/{1.73_m2} Normal >60 [facility] Comment on above: Performed By: #### H EMDF, BMP3, QWAL2 #### [facility] [address] [place] [address] Glucose [Mass/Vol] 86 mg/dL Normal 70-100 [facility] Comment on above: Performed By: #### H EMDF, BMP3, QWAL2 #### [facility] [address] [place] [address] Urea nitrogen [Mass/Vol] 2 mg/dL Low 9-20 [facility] Comment on above: Performed By: #### H EMDF, BMP3, QWAL2 #### [facility] [address] [place] [address] Chloride [Moles/Vol] 109 mmol/L High 98-107 [facility] Comment on above: Performed By: #### H EMDF, BMP3, QWAL2 #### [facility] [address] [place] [address] Potassium [Moles/Vol] 3.2 mmol/L Low 3.5-5.1 [facility] Comment on above: Performed By: #### H EMDF, BMP3, QWAL2 #### [facility] [address] [place] [address] Sodium [Moles/Vol] 139 mmol/L Normal 135-145 [facility] Comment on above: Performed By: #### H EMDF, BMP3, QWAL2 #### [facility] [address] [place] [address] Anion gap [Moles/Vol] 0 mmol/L Low 3 - 13 mmol/L [facility] Calcium [Mass/Vol] 9.4 mg/dL 8.4 - 10. 4 mg/dL [facility] Chloride [Moles/Vol] 109 mmol/L High 98 - 10 7 mmol/L [facility] CO2 [Moles/Vol] 30 mmol/L 22 - 30 mmol/L [facility] Creatinine [Mass/Vol] 0.7 mg/dL 0.52 - 1.25 mg/dL [facility] EGFR IF NonAfrican Chadian >90.0 >60 mL/min [facility] Comment on above: KDIGO guidelines pro [...] - 10.7 10*3/uL [facility] Test Performed by [facility], [address] [place] [address] Just[place]. , [address] [facility] CT HEAD WO CONTRASTon 2021 [facility]: [id number]ed Tomography ACCESSION EXAM DATE/TIME PROCEDURE ORDERING PROVIDER [id number] 07/18/2021 18:[address] Head or Brain w/o MD MARIAELENA, ALISSON [place] CPT code 84081 Reason For Exam (CT Head or Brain [...] MALAY Transcribed Date and Time: 07/18/2021 6:59 [facility] RAD Thai Sprague MD - 07/18/2021 Patient Name: PAT MEDINA Computed Tomography ACCESSION EXAM DATE/TIME PROCEDURE ORDERING PROVIDER [id number] 07/18/2021 18:[address] Head or Brain w/o MD MARIAELENA, ALISSON Sanz Contrast CPT code 78643 Reason For Exam (CT Head or Brain [...] Tomography ACCESSION EXAM DATE/TIME PROCEDURE ORDERING PROVIDER [id number] 07/18/2021 18:[address] Head or Brain w/o MD PEREA DOUGALAS R. Contrast CPT code 52321 Reason For Exam (CT Head or Brain [...] Transcribed Date and Time: 07/18/2021 6:[address] [facility] [address] MAXILLOFACIAL W CONTRASTo n 07-18-2021 Patient Name: APT MEDINA Computed Tomography ACCESSION EXAM DATE/TIME PROCEDURE ORDERING PROVIDER [id number] 07/18/2021 19:[address] Maxillofacial w/ MD PEREA DOUGALAS R. Contrast CPT code 85946 Q9967 Reason For Exam (CT Maxillofacial w/ [...] MALAY Transcribed Date and Time: 07/18/2021 7:14 [facility] Thai Sprague MD - 07/18/2021 Patient Name: PAT MEDINA Computed Tomography ACCESSION EXAM DATE/TIME PROCEDURE ORDERING PROVIDER [id number] 07/18/2021 19:[address] Maxillofacial w/ MD PEREA DOUGALAS R. Contrast CPT code 90369 Q9967 Reason For Exam (CT Maxillofacial w/ [...] MALAY Transcribed Date and Time: 07/18/2021 7:14 [facility] Work Phone: [facility] Work Phone: CT Maxillofacial w/ Contrast on 07-18-2021 CT Maxillofacial w/ Contrast Patient Name: PAT MEDINA Computed Tomography ACCESSION EXAM DATE/TIME PROCEDURE ORDERING PROVIDER [id number] 07/18/2021 19:[address] Maxillofacial funmilayo/ MD PEREA DOUGALAS RPrince Contrast CPT code 94551 Q9967 Reason For Exam (CT Maxillofacial w/ [...] Transcribed Date and Time: 07/18/2021 7:14 Normal [facility] HCG Qualitative, Serumon hCG Qual Negative [facility] Comment on above: Reference Range: NEG ATIVE Effective 09/07/2019, the reference interval for the qualitative test has been updated. This test detects hCG at concentrations of 10 mIU/L or greater in serum. Hemogram w/ Autodiffon 07-18 Abs Baso Cnt 0.1 10*3/uL Normal 0.0-0.2 [facility] Comment on above: Performed By: #### H EMDF, BMP3, QWAL2 #### [facility] [address] [facility] [place] [address] Abs Neutrophile Cnt 5.0 10*3/uL Normal 1.8-7.0 [facility] Comment on above: Performed By: #### H EMDF, BMP3, QWAL2 #### [facility] [address] [place] [address] Basophils/100 WBC (Bld) 1.3 % Normal 0.0-2.0 [facility] Comment on above: Performed By: #### H EMDF, BMP3, QWAL2 #### [facility] [address] [place] [address] Eosinophils (Bld) [#/Vol] 0.1 10*3/uL Normal 0.0-0.5 [facility] Comment on above: Performed By: #### H EMDF, BMP3, QWAL2 #### [facility] [address] [place] [address] Eosinophils/100 WBC (Bld) 1.2 % Normal 1.0-6.0 [facility] Comment on above: Performed By: #### H EMDF, BMP3, QWAL2 #### [facility] [address] [place] [address] Erythrocyte distribution width (RBC) [Ratio] 13.2 % Normal 11.5-14.5 [facility] Comment on above: Performed By: #### H EMDF, BMP3, QWAL2 #### [facility] [address] [place] [address] Granulocytes/100 WBC (Bld) 54.7 % Normal 40.0-80.0 [facility] Comment on above: Performed By: #### H EMDF, BMP3, QWAL2 #### [facility] [address] [place] [address] Hematocrit (Bld) [Volume fraction] 37.5 % Normal 35.0-47.0 [facility] Comment on above: Performed By: #### H EMDF, BMP3, QWAL2 #### [facility] [address] [place] [address] Hemoglobin (Bld) [Mass/Vol] 13.1 g/dL Normal 11.7-16.0 [facility] Comment on above: Performed By: #### H EMDF, BMP3, QWAL2 #### [facility] [address] [place] [address] Lymphocytes (Bld) [#/Vol] 3.4 10*3/uL Normal 1.0-4.3 [facility] Comment on above: Performed By: #### H EMDF, BMP3, QWAL2 #### [facility] [address] [place] [address] Lymphocytes/100 WBC (Bld) 36.9 % Normal 20.0-40.0 [facility] Comment on above: Performed By: #### H EMDF, BMP3, QWAL2 #### [facility] [address] [place] [address] MCH (RBC) [Entitic mass] 31.8 pg Normal 26.0-34.0 [facility] Comment on above: Performed By: #### H EMDF, BMP3, QWAL2 #### [facility] [address] [place] [address] MCHC 35.0 % Normal 32.0-36.0 [facility] Comment on above: Performed By: #### H EMDF, BMP3, QWAL2 #### [facility] [address] [place] [address] MCV (RBC) [Entitic vol] 90.7 fL Normal 79.0-98.0 [facility] Comment on above: Performed By: #### H EMDF, BMP3, QWAL2 #### [facility] [address] [place] [address] Monocytes (Bld) [#/Vol] 0.5 10*3/uL Normal 0.0-0.8 [facility] Comment on above: Performed By: #### H EMDF, BMP3, QWAL2 #### [facility] [address] [place] [address] Monocytes/100 WBC (Bld) 5.9 % Normal 2.0-10.0 [facility] Comment on above: Performed By: #### H EMDF, BMP3, QWAL2 #### [facility] [address] [place] [address] Platelet mean volume (Bld) [Entitic vol] 7.6 fL Normal 7.4-10.4 [facility] Comment on above: Performed By: #### H EMDF, BMP3, QWAL2 #### [facility] [address] [place] [address] Platelets (Bld) [#/Vol] 365 10*3/uL Normal 140-440 [facility] Comment on above: Performed By: #### H EMDF, BMP3, QWAL2 #### [facility] [address] [place] [address] RBC (Bld) [#/Vol] 4.13 10*6/uL Normal 3.80-5.20 [facility] Comment on above: Performed By: #### H EMDF, BMP3, QWAL2 #### [facility] [address] [place] [address] WBC (Bld) [#/Vol] 9.2 10*3/uL Normal 3.6-10.7 [facility] Comment on above: Performed By: #### H OSBALDO GARCIA, QWAL2 #### [facility] [address] [place] [address] No Panel Informationon 07-18 Test Performed by [facility], [address] , [place], [place] [id number] [place] [address] [facility] Radiology Study observation (narrative) [facility] Work Phone: hCG Qual Pregon 07-18-2021 hCG Qual Preg Negative Normal [facility] [employer] Comment on above: Result Comment: Refe rence Range: NEGATIVE Effective 09/07/2019, the reference interval for the qualitative test has been updated. This test detects hCG at concentrations of 10 mIU/L or greater in serum. Performed By: #### H OSBALDO GARCIA, QWAL2 #### [facility] [address] [place] [address] XR Chest PA and Lateralon IMPRESSION: No acute radiographic abnormality. Color Dipper: [facility] Transcribe Date/Time: Mar 09 2021 10:00A Dictated by : ALEX MUNIZ MD This examination was interpreted and the report reviewed and electronically signed by: ALEX MNUIZ MD on Mar 09 2021 10:01AM [facility] DIVISION OF RADIOLOGY * * *Final [...] Unremarkable. DIVISION OF RADIOLOGY Provider, [facility] - 03/09/2021 * * *Final Report* [...] Unremarkable. IMPRESSION IMPRESSION: No acute radiographic abnormality. Color Dipper: DARSHAN Transcribe Date/Time: Mar 09 2021 10:00A [...] 3 molar conc 8 mmol/L Normal 8-20 [facility] Comment on above: Performed By: #### L P8 ####[address] [address] Calcium mass conc 8.9 mg/dL Normal 8.5-10.1 [facility] Comment on above: Performed By: #### L P8 ####[facility] [place], [place] [address] Chloride molar conc 104 mmol/L Normal 98-107 [facility] Comment on above: Performed By: #### L P8 ####[facility] [place], [place] [address] CO2 molar conc 27 mmol/L Normal 21-32 [facility] Comment on above: Performed By: #### L P8 ####[place] [address] Creatinine mass conc 0.87 mg/dL Normal 0.51-0.95 [facility] Comment on above: Performed By: #### L P8 ####[facility] [place] [address] Glucose mass conc 89 mg/dL Normal 70-99 [facility] Comment on above: Performed By: #### L P8 ####[place] [address] Potassium molar conc 3.5 mmol/L Normal 3.5-5.1 [facility] Comment on above: Performed By: #### L P8 ####[place] [address] Sodium molar conc 136 mmol/L Normal 136-145 [facility] Comment on above: Performed By: #### L P8 ####[place] [address] Urea nitrogen mass conc (Bld) 11 mg/dL Normal 7-25 [facility] Comment on above: Performed By: #### L P8 ####[place] [address] Urea nitrogen/Creatinine mass ratio 13 mg/mg Normal 10-20 [facility] Comment on above: Performed By: #### L P8 ####[place] [address] CPKon 07-02-2018 CPK 539 U/L High 26-192 [facility] Comment on above: Performed By: #### L CK ####[place] [address] Cult Urineon 07-02-2018 Cult Urine Test performed at [facility] No growth Normal [facility] Comment on above: Performed By: #### C _URI ####[place] [address] Hemogram/Manual Diffon 07-02 Abs. Baso 0.00 thou/cmm Normal 0.00-0.08 [facility] Comment on above: Performed By: #### L MCBD ####[place] [address] Abs. Eosin 0.14 thou/cmm Normal 0.00-0.41 [facility] Comment on above: Performed By: #### L MCBD ####[facility] [place] [address] Abs. Lymph 3.15 thou/cmm Normal 1.50-3.65 [facility] Comment on above: Performed By: #### L MCBD ####[facility] [place] [address] Abs. [place] 1.10 thou/cmm High 0.20-1.00 [facility] Comment on above: Performed By: #### L MCBD ####[place] [address] Abs. Neut (ANC) 9.31 thou/cmm High 3.00-5.67 [facility] Comment on above: Performed By: #### L MCBD ####[place] [address] Basophil 0.0 % Normal [facility] Comment on above: Performed By: #### L MCBD ####[place] [address] Diff Type Manual Diff Normal [facility] Comment on above: Performed By: #### L MCBD ####[place] [address] Eosinophil 1.0 % Normal [facility] Comment on above: Performed By: #### L MCBD ####[place] [address] Lymphocyte 23.0 % Normal [facility] Comment on above: Performed By: #### L MCBD ####[place] [address] Monocyte 8.0 % Normal [facility] Comment on above: Performed By: #### L MCBD ####[place] [address] Platelet Estimate Normal Normal [facility] Comment on above: Performed By: #### L MCBD ####[address] [address] RBC Morphology Normal Normal [facility] Comment on above: Performed By: #### L MCBD ####[facility] [place] [address] Seg Neutrophil 68.0 % Normal [facility] Comment on above: Performed By: #### L MCBD ####[facility] [place] [address] Erythrocyte distribution width Auto Ratio (RBC) 12.0 % Normal 11.5-15.9 [facility] Comment on above: Performed By: #### L MCBD ####[place] [address] Hct 39.1 % Normal 37.0-47.0 [facility] Comment on above: Performed By: #### L MCBD ####[place] [address] Hgb 13.5 g/dL Normal 12.0-16.0 [facility] Comment on above: Performed By: #### L MCBD ####[place] [address] MCH 32.1 pg High 27.0-31.0 [facility] Comment on above: Performed By: #### L MCBD ####[place] [address] MCHC 34.5 % Normal 32.0-36.0 [facility] Comment on above: Performed By: #### L MCBD ####[place] [address] MCV 92.9 fl Normal 81.0-99.0 [facility] Comment on above: Performed By: #### L MCBD ####[place] [address] MPV 10.3 fl Normal 7.1-10.5 [facility] Comment on above: Performed By: #### L MCBD ####[place] [address] Platelet 256 thou/cmm Normal 150-400 [facility] Comment on above: Performed By: #### L MCBD ####[place] [address] RBC Test strip #/vol (U) 4.21 mil/cmm Normal 4.20-5.40 [facility] Comment on above: Performed By: #### L MCBD ####[place] [address] WBC 13.7 thou/cmm High 4.8-10.8 [facility] Comment on above: Performed By: #### L MCBD ####[place] [address] MDRD eGFRon 07-02-2018 GFR/1.73 sq M predicted among non-blacks MDRD vol rate/area (S/P/Bld) mL/min/{1.73_m2} Normal >60mL/min/1. 73m2 [facility] Comment on above: Result Comment: If t he patient is , multiply the result by 1.210. Performed By: #### L GFR ####[place] [address] Rapid Influenza A/Bon 2018 Rapid Influenza A/B See below Normal Negative [facility] Comment on above: Result Comment: Nega tive for influenza A and B. Performed By: #### L RFLU ####[place] [address] TSHon 07-02-2018 Thyrotropin Qn 1.96 uIU/mL Normal 0.34-4.82 [facility] Comment on above: Performed By: #### L TSH ####[place] [address] Urinalysis Routineon 019 Appearance Nom (U) 1+ (HAZY) Normal [facility] Comment on above: Performed By: #### L URIN ####[place] [address] Bacteria LM.HPF #/area (Urine sed) MANY Abnormal None [facility] Comment on above: Performed By: #### L URIN ####[place] [address] Bilirubin Urine Negative Normal Negative [facility] Comment on above: Performed By: #### L URIN ####[place] [address] Color Nom (U) DARK YELLOW Normal [facility] Comment on above: Performed By: #### L URIN ####[place] [address] Ep Cells Urine 13-20 Normal 0-5 [facility] Comment on above: Performed By: #### L URIN ####[place] [address] Glucose Ql (U) Negative Normal Negative [facility] Comment on above: Performed By: #### L URIN ####[place] [address] Hemoglobin,Urine Negative Normal Negative [facility] Comment on above: Performed By: #### L URIN ####[place] [address] Ketone Urine Negative Normal Negative [facility] Comment on above: Performed By: #### L URIN ####[place] [address] Leukocytes Esterase Negative Normal Negative [facility] Comment on above: Performed By: #### L URIN ####[place] [address] Nitrites Urine Negative Normal Negative [facility] Comment on above: Performed By: #### L URIN ####[place] [address] pH Test strip (U) 6.0 [pH] Normal 5.0-8.0 [facility] Comment on above: Performed By: #### L URIN ####[place] [address] Protein Urine Negative Normal Negative [facility] Comment on above: Performed By: #### L URIN ####[place] [address] RBC LM.HPF #/area (Urine sed) NONE Normal 0-3 [facility] Comment on above: Performed By: #### L URIN ####[facility] [place], [place] [address] Specific [place], Ur 1.025 Normal 1.005-1.030 [facility] Comment on above: Performed By: #### L URIN ####[facility] [place], [place] [address] Urobilinogen,Ur 0.2 EU/dL Normal 0.0-1.0 [facility] Comment on above: Performed By: #### L URIN ####[facility] [place], [place] [address] WBC LM.HPF #/area (Urine sed) NONE Normal 0-5 [facility] Comment on above: Performed By: #### L URIN ####[address] [address] FOOT 3V AP/LAT/OBL LEFTon FOOT 3V AP/LAT/OBL LEFT Performed at [facility] APPROVED BY: Jonh Landry MD EXAM TITLE: THREE VIEWS OF THE LEFT FOOT DATE:01/30/2018 12:40 COMPARISON: None. CLINICAL INDICATION/HISTORY: Pain and swelling TECHNIQUE: AP, lateral and oblique images FINDINGS: No fracture or dislocation is seen. Osseous relationships are maintained on this nonweightbearing study. No suspicious osseous lesions. Joint spaces are preserved. IMPRESSION: Negative foot x-ray Normal [facility] CT ABDOMEN AND PELVIS W/O CO NTRASTon 01-23-2018 CT ABDOMEN AND PELVIS W/O CONTRAST Performed at [facility] APPROVED BY: Adry Cabrera MD Exam [...] are no signs of appendicitis otherwise. Normal [facility] Chlam/GC-DNA Amplifiedon Chlam/GC-DNA Amplified [facility]ydia trachomatis DNA NOT DETECTEDNeisseria gonorrhoeae DNA NOT DETECTEDReference range NOT DETECTEDMethod: Strand Displacement Amplification-BD ProbeTec AssayComment: A negative result does not precludeC.trachomatis or N. gonorrhoeae infection becauseresults are dependent on adequate specimen collection,absence of inhibitors, and sufficient DNA to be detected. Normal [facility] Comment on above: Performed By: #### C TGCA ####[place] [address] Comprehensive Panelon 2017 Albumin mass conc 4.0 g/dL Normal 3.4-5.0 [facility] Comment on above: Performed By: #### L P14 ####[place] [address] ALP enzyme act/vol 63 U/L Normal 46-116 [facility] Comment on above: Performed By: #### L P14 ####[place] [address] ALT-SGPT Blood 41 U/L Normal 14-63 [facility] Comment on above: Performed By: #### L P14 ####[place] [address] Anion gap 3 molar conc 12 mmol/L Normal 8-20 [facility] Comment on above: Performed By: #### L P14 ####[facility] [place], [place] [address] AST-SGOT Blood 29 U/L Normal 15-37 [facility] Comment on above: Performed By: #### L P14 ####[facility] [place], [place] [address] Bilirubin Ql (U) 0.6 mg/dL Normal 0.2-1.0 [facility] Comment on above: Performed By: #### L P14 ####[facility] [place], [place] [address] Calcium mass conc 8.9 mg/dL Normal 8.5-10.1 [facility] Comment on above: Performed By: #### L P14 ####[address] [address] Chloride molar conc 93 mmol/L Low 98-107 [facility] Comment on above: Performed By: #### L P14 ####[address] [address] CO2 molar conc 24 mmol/L Normal 21-32 [facility] Comment on above: Performed By: #### L P14 ####[address] [address] Creatinine mass conc 0.69 mg/dL Normal 0.51-0.95 [facility] Comment on above: Performed By: #### L P14 ####[facility] [place], [place] [address] Glucose mass conc 69 mg/dL Low 70-99 [facility] Comment on above: Performed By: #### L P14 ####[address] [address] Potassium molar conc 3.7 mmol/L Normal 3.5-5.1 [facility] Comment on above: Performed By: #### L P14 ####[address] [address] Protein mass conc 7.5 g/dL Normal 6.4-8.2 [facility] Comment on above: Performed By: #### L P14 ####[facility] [place] [address] Sodium molar conc 125 mmol/L Low 136-145 [facility] Comment on above: Performed By: #### L P14 ####[place] [address] Urea nitrogen mass conc (Bld) 7 mg/dL Normal 7-25 [facility] Comment on above: Performed By: #### L P14 ####[place] [address] Urea nitrogen/Creatinine mass ratio 10 mg/mg Normal 10-20 [facility] Comment on above: Performed By: #### L P14 ####[place] [address] Hemogram/Manual Diffon 01-23 Abs. Baso 0.17 thou/cmm High 0.00-0.08 [facility] Comment on above: Performed By: #### L MCBD ####[place] [address] Abs. Eosin 0.00 thou/cmm Normal 0.00-0.41 [facility] Comment on above: Performed By: #### L MCBD ####[place] [address] Abs. Lymph 2.22 thou/cmm Normal 1.50-3.65 [facility] Comment on above: Performed By: #### L MCBD ####[place] [address] Abs. [place] 2.05 thou/cmm High 0.20-1.00 [facility] Comment on above: Performed By: #### L MCBD ####[place] [address] Abs. Neut (ANC) 12.66 thou/cmm High 3.00-5.67 [facility] Comment on above: Performed By: #### L MCBD ####[place] [address] Basophil 1.0 % Normal [facility] Comment on above: Performed By: #### L MCBD ####[facility] [place] [address] Eosinophil 0.0 % Normal [facility] Comment on above: Performed By: #### L MCBD ####[facility] [place] [address] Lymphocyte 13.0 % Normal [facility] Comment on above: Performed By: #### L MCBD ####[facility] [place] [address] Monocyte 12.0 % Normal [facility] Comment on above: Performed By: #### L MCBD ####[place] [address] Platelet Estimate Normal Normal [facility] Comment on above: Performed By: #### L MCBD ####[place] [address] RBC Morphology Normal Normal [facility] Comment on above: Performed By: #### L MCBD ####[place] [address] Seg Neutrophil 74.0 % Normal [facility] Comment on above: Performed By: #### L MCBD ####[place] [address] Diff Type Manual Diff Normal [facility] Comment on above: Performed By: #### L MCBD ####[place] [address] Erythrocyte distribution width Auto Ratio (RBC) 11.6 % Normal 11.5-15.9 [facility] Comment on above: Performed By: #### L MCBD ####[place] [address] Hct 40.8 % Normal 37.0-47.0 [facility] Comment on above: Performed By: #### L MCBD ####[place] [address] Hgb 14.2 g/dL Normal 12.0-16.0 [facility] Comment on above: Performed By: #### L MCBD ####[facility] [place] [address] MCH 31.8 pg High 27.0-31.0 [facility] Comment on above: Performed By: #### L MCBD ####[facility] [place] [address] MCHC 34.8 % Normal 32.0-36.0 [facility] Comment on above: Performed By: #### L MCBD ####[facility] [place] [address] MCV 91.3 fl Normal 81.0-99.0 [facility] Comment on above: Performed By: #### L MCBD ####[place] [address] MPV 10.0 fl Normal 7.1-10.5 [facility] Comment on above: Performed By: #### L MCBD ####[place] [address] Platelet 263 thou/cmm Normal 150-400 [facility] Comment on above: Performed By: #### L MCBD ####[place] [address] RBC Test strip #/vol (U) 4.47 mil/cmm Normal 4.20-5.40 [facility] Comment on above: Performed By: #### L MCBD ####[place] [address] WBC 17.1 thou/cmm High 4.8-10.8 [facility] Comment on above: Performed By: #### L MCBD ####[place] [address] MDRD eGFRon 01-23-2018 GFR/1.73 sq M predicted among non-blacks MDRD vol rate/area (S/P/Bld) mL/min/{1.73_m2} Normal >60mL/min/1. 73m2 [facility] Comment on above: Result Comment: If t he patient is , multiply the result by 1.210. Performed By: #### L GFR ####[address] [address] Macroscopic Urinalysison Appearance Nom (U) CLEAR Normal [facility] Comment on above: Performed By: #### L MACU ####[address] [address] Bilirubin Urine Negative Normal Negative [facility] Comment on above: Performed By: #### L MACU ####[address] [address] Color Nom (U) STRAW Normal [facility] Comment on above: Performed By: #### L MACU ####[address] [address] Glucose Ql (U) Negative Normal Negative [facility] Comment on above: Performed By: #### L MACU ####[address] [address] Hemoglobin,Urine Negative Normal Negative [facility] Comment on above: Performed By: #### L MACU ####[address] [address] Ketone Urine Negative Normal Negative [facility] Comment on above: Performed By: #### L MACU ####[place] [address] Leukocytes Esterase Negative Normal Negative [facility] Comment on above: Performed By: #### L MACU ####[address] [address] Nitrites Urine Negative Normal Negative [facility] Comment on above: Performed By: #### L MACU ####[address] [address] pH Test strip (U) 6.5 [pH] Normal 5.0-8.0 [facility] Comment on above: Performed By: #### L MACU ####[address] [address] Protein Urine Negative Normal Negative [facility] Comment on above: Performed By: #### L MACU ####[place] [address] Specific [place], Ur <=1.005 Normal 1.005-1.030 [facility] Comment on above: Performed By: #### L MACU ####[facility] [place], [place] [address] Urobilinogen,Ur 0.2 EU/dL Normal 0.0-1.0 [facility] Comment on above: Performed By: #### L MACU ####[facility] [place] [id number] US PELVIS NON-OB COMPLETEon 01-23-2018 US PELVIS NON-OB COMPLETE Performed at [facility] APPROVED BY: Adry Cabrera MD EXAMINATION: [...] uterine fibroids and small uterine cyst. Normal [facility] US TRANSVAGINALon 01-23-2018 US TRANSVAGINAL Performed at [facility] APPROVED BY: Adry Cabrera MD EXAMINATION: [...] uterine fibroids and small uterine cyst. Normal [facility] Vital Signs Date Time Vital Sign Value Performing Clinician Faci lity 04-25-2025 19:20-0400 Diastolic Blood Pressure Non-Invasive 73 mm[Hg] JUAN MIGUEL MANLEY MD [facility] 04-25-2025 19:20-0400 Heart rate 84 /min JUAN MIGUEL MANLEY MD [facility] 04-25-2025 19:20-0400 Respiratory rate 16 /min JUAN MIGUEL MANLEY MD [facility] 04-25-2025 19:20-0400 Systolic Blood Pressure Non-Invasive 133 mm[Hg] JUAN MIGUEL MANLEY MD [facility] 04-25-2025 16:35-0400 Body temperature 96.8 [degF] JUAN MIGUEL MANLEY MD [facility] 04-25-2025 16:35-0400 Body weight 58 kg JUAN MIGUEL MANLEY MD [facility] 04-25-2025 16:35-0400 Diastolic Blood Pressure Non-Invasive 71 mm[Hg] JUAN MIGUEL MANLEY MD [facility] 04-25-2025 16:35-0400 Heart rate 86 /min JUAN MIGUEL MANLEY MD [facility] 04-25-2025 16:35-0400 Respiratory rate 16 /min JUAN MIGUEL MANLEY MD [facility] 04-25-2025 16:35-0400 Systolic Blood Pressure Non-Invasive 131 mm[Hg] JUAN MIGUEL MANLEY MD [facility] 04-23-2025 23:15-0400 Body temperature 98.06 [degF] SARAN VAZQUEZ DO [facility] 04-23-2025 23:15-0400 Diastolic Blood Pressure Non-Invasive 76 mm[Hg] SARAN VAZQUEZ DO [facility] 04-23-2025 23:15-0400 Heart rate 67 /min SARAN VAZQUEZ DO [facility] 04-23-2025 23:15-0400 Respiratory rate 18 /min SARAN VAZQUEZ DO [facility] 04-23-2025 23:15-0400 Systolic Blood Pressure Non-Invasive 137 mm[Hg] SARAN VAZQUZE DO [facility] 03-07-2025 09:04-0400 Body height 165.1 cm Stephy Simpson MD Work Phone: [facility] 03-07-2025 09:04-0400 Body mass index (BMI) [Ratio] 20.14 kg/m2 Stephy Simpson MD Work Phone: [facility] 03-07-2025 09:04-0400 Body weight 54.88 kg Stephy Simpson MD Work Phone: [facility] 03-07-2025 09:04-0400 Diastolic blood pressure 74 mm[Hg] Stephy Simpson MD Work Phone: [facility] 03-07-2025 09:04-0400 Heart rate 80 /min Stephy Simpson MD Work Phone: [facility] 03-07-2025 09:04-0400 Respiratory rate 14 /min Stephy Simpson MD Work Phone: [facility] 03-07-2025 09:04-0400 SaO2% (BldA) [Mass fraction] 96 % Stephy Simpson MD Work Phone: [facility] 03-07-2025 09:04-0400 Systolic blood pressure 100 mm[Hg] Stephy Simpson MD Work Phone: [facility] 02-26-2025 15:00-0400 Body mass index (BMI) [Ratio] 21.13 kg/m2 Stephy Simpson MD Work Phone: [facility] 02-26-2025 15:00-0400 Body weight 57.61 kg Stephy Simpson MD Work Phone: [facility] 02-26-2025 15:00-0400 Diastolic blood pressure 68 mm[Hg] Stephy Simpson MD Work Phone: [facility] 02-26-2025 15:00-0400 Systolic blood pressure 98 mm[Hg] Stephy Simpson MD Work Phone: [facility] 02-04-2025 16:58-0400 Body mass index (BMI) [Ratio] 21.2 kg/m2 Maile Norman MD Work Phone: [facility] 02-04-2025 16:58-0400 Body weight 57.8 kg Maile Norman MD Work Phone: [facility] 02-04-2025 16:58-0400 Diastolic blood pressure 75 mm[Hg] Maile Norman MD Work Phone: [facility] 02-04-2025 16:58-0400 Heart rate 89 /min Maile Norman MD Work Phone: [facility] 02-04-2025 16:58-0400 Respiratory rate 16 /min Maile Norman MD Work Phone: [facility] 02-04-2025 16:58-0400 Systolic blood pressure 126 mm[Hg] Maile Norman MD Work Phone: [facility] 01-14-2025 10:31-0400 Body mass index (BMI) [Ratio] 20.63 kg/m2 Rody Plotts MACHINE SIGN WRITER.CNM Work Phone: [facility] 01-14-2025 10:31-0400 Body weight 56.25 kg Rody Plotmaximo MACHINE SIGN WRITER.CNM Work Phone: [facility] 01-14-2025 10:31-0400 Diastolic blood pressure 76 mm[Hg] Rody Plotts MACHINE SIGN WRITER.CNM Work Phone: [facility] 01-14-2025 10:31-0400 Systolic blood pressure 98 mm[Hg] Rody Plotmaximo MACHINE SIGN WRITER.CNM Work Phone: [facility] 01-09-2025 15:47-0400 Body mass index (BMI) [Ratio] 21.42 kg/m2 Galo Bernal 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 Work Phone: [facility] 01-09-2025 15:47-0400 Body temperature 97.7 [degF] Galo Bernal 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 Work Phone: [facility] 01-09-2025 15:47-0400 Body weight 58.4 kg Galo Bernal 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 Work Phone: [facility] 01-09-2025 15:47-0400 Diastolic blood pressure 78 mm[Hg] Galo Bernal 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 Work Phone: [facility] 01-09-2025 15:47-0400 Heart rate 99 /min Galo Bernal 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 Work Phone: [facility] 01-09-2025 15:47-0400 Respiratory rate 20 /min Galo Bernal 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 Work Phone: [facility] 01-09-2025 15:47-0400 SaO2% (BldA) [Mass fraction] 95 % Galo Carneybury 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 Work Phone: [facility] 01-09-2025 15:47-0400 Systolic blood pressure 124 mm[Hg] Galo Colvinlebury 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 Work Phone: [facility] 12-24-2024 11:34-0400 Diastolic blood pressure 90 mm[Hg] Sam Erin 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 Work Phone: [facility] 12-24-2024 11:34-0400 Systolic blood pressure 128 mm[Hg] Sam Erin 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 Work Phone: [facility] 12-24-2024 11:33-0400 Body mass index (BMI) [Ratio] 20.98 kg/m2 Sam Erin 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 Work Phone: [facility] 12-24-2024 11:33-0400 Body weight 57.2 kg Sam Erin 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 Work Phone: [facility] 12-24-2024 11:33-0400 Heart rate 103 /min Sam Erin 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 Work Phone: [facility] 12-24-2024 11:33-0400 SaO2% (BldA) [Mass fraction] 93 % Sam Erin 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 Work Phone: [facility] 12-03-2024 10:53-0400 Diastolic blood pressure 65 mm[Hg] Sam Erin 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 Work Phone: [facility] 12-03-2024 10:53-0400 Heart rate 79 /min Sam Erin 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 Work Phone: [facility] 12-03-2024 10:53-0400 SaO2% (BldA) [Mass fraction] 98 % Sam Erin 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 Work Phone: [facility] 12-03-2024 10:53-0400 Systolic blood pressure 111 mm[Hg] Sam Erin 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 Work Phone: [facility] 11-28-2024 11:12-0400 Body mass index (BMI) [Ratio] 20.73 kg/m2 Sam Erin 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 Work Phone: [facility] 11-28-2024 11:12-0400 Body weight 56.5 kg Sam Erin 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 Work Phone: [facility] 11-28-2024 11:12-0400 Diastolic blood pressure 74 mm[Hg] Sam Erin 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 Work Phone: [facility] 11-28-2024 11:12-0400 Heart rate 117 /min Sam Erin 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 Work Phone: [facility] 11-28-2024 11:12-0400 SaO2% (BldA) [Mass fraction] 98 % Sam Erin 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 Work Phone: [facility] 11-28-2024 11:12-0400 Systolic blood pressure 110 mm[Hg] Sam Erin 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 Work Phone: [facility] 11-22-2024 09:22-0400 Body mass index (BMI) [Ratio] 21.06 kg/m2 Karen Mckee MACHINE SIGN WRITER.V GROOVE CUTTER Work Phone: [facility] 11-22-2024 09:22-0400 Body weight 57.4 kg Karen Mckee MACHINE SIGN WRITER.[employer] CUTTER Work Phone: [facility] 11-22-2024 09:22-0400 Diastolic blood pressure 73 mm[Hg] Karen Mckee MACHINE SIGN WRITER.[employer] CUTTER Work Phone: [facility] 11-22-2024 09:22-0400 Heart rate 92 /min Karen Mckee MACHINE SIGN WRITER.V [employer] CUTTER Work Phone: [facility] 11-22-2024 09:22-0400 Respiratory rate 16 /min Karen Mckee MACHINE SIGN WRITER.V [employer] CUTTER Work Phone: [facility] 11-22-2024 09:22-0400 Systolic blood pressure 104 mm[Hg] Karen Mckee MACHINE SIGN WRITER.V [employer] CUTTER Work Phone: [facility] 11-02-2024 09:50-0400 Body mass index (BMI) [Ratio] 21.31 kg/m2 Sam Erin 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 Work Phone: [facility] 11-02-2024 09:50-0400 Body weight 58.1 kg Sam Erin 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 Work Phone: [facility] 11-02-2024 09:50-0400 Diastolic blood pressure 79 mm[Hg] Sam Erin 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 Work Phone: [facility] 11-02-2024 09:50-0400 Heart rate 102 /min Sam Erin 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 Work Phone: [facility] 11-02-2024 09:50-0400 SaO2% (BldA) [Mass fraction] 97 % Sam Erin 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 Work Phone: [facility] 11-02-2024 09:50-0400 Systolic blood pressure 112 mm[Hg] Asm Erin 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 Work Phone: [facility] 09-28-2024 09:05-0400 Body height 165.1 cm Pac 1 Work Phone: [facility] 09-28-2024 09:05-0400 Body mass index (BMI) [Ratio] 21.13 kg/m2 Pac 1 Work Phone: [facility] 09-28-2024 09:05-0400 Body temperature 97.11 [degF] Pacc 1 Work Phone: [facility] 09-28-2024 09:05-0400 Body weight 57.61 kg Pacc 1 Work Phone: [facility] 09-28-2024 09:05-0400 Diastolic blood pressure 78 mm[Hg] Pac 1 Work Phone: [facility] [...] index (BMI) [Ratio] 20.1 kg/m2 Sam Erin 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 Work Phone: [facility] 09-21-2024 08:53-0400 Body weight 56.5 kg Sam Erin 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 Work Phone: [facility] 09-21-2024 08:53-0400 Diastolic blood pressure 70 mm[Hg] Sam Erin 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 Work Phone: [facility] 09-21-2024 08:53-0400 Heart rate 98 /min Sam Erin 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 Work Phone: [facility] 09-21-2024 08:53-0400 SaO2% (BldA) [Mass fraction] 98 % Sam Erin 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 Work Phone: [facility] 09-21-2024 08:53-0400 Systolic blood pressure 110 mm[Hg] Sam Erin 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 Work Phone: [facility] 07-31-2024 [...] index (BMI) [Ratio] 21.35 kg/m2 Karen Mckee MACHINE SIGN WRITER.[employer] CUTTER Work Phone: [facility] 07-13-2024 10:39-0500 Body weight 60 kg Karen Mckee MACHINE SIGN WRITER.V [employer] C[employer]TER Work Phone: [facility] 07-13-2024 10:39-0500 Diastolic blood pressure 85 mm[Hg] Karen Mckee MACHINE SIGN WRITER.V [employer] CUTTER Work Phone: [facility] 07-13-2024 10:39-0500 Heart rate 84 /min Karen Mckee MACHINE SIGN WRITER.V [employer] CUTTER Work Phone: [facility] 07-13-2024 10:39-0500 Respiratory rate 16 /min Karen Mckee MACHINE SIGN WRITER.V [employer] CUTTER Work Phone: [facility] 07-13-2024 10:39-0500 Systolic blood pressure 122 mm[Hg] Karen Mckee MACHINE SIGN WRITER.V [employer] CUTTER Work Phone: [facility] 07-11-2024 [...] 07-09-2024 07:08-0500 Body height 165.1 cm Cecile [place] 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 Work Phone: [facility] 07-09-2024 07:08-0500 Body mass index (BMI) [Ratio] 20.97 kg/m2 Cecile [place] 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 Work Phone: [facility] 07-09-2024 07:08-0500 Body weight 57.15 kg Cecile [place] 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 Work Phone: [facility] 07-09-2024 07:08-0500 Diastolic blood pressure 62 mm[Hg] Cecile [place] 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 Work Phone: [facility] 07-09-2024 07:08-0500 Systolic blood pressure 110 mm[Hg] Cecile [place] 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 Work Phone: [facility] 05-23-2024 07:28-0500 Body mass index (BMI) [Ratio] 20.47 kg/m2 Galolucia Bernal 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 Work Phone: [facility] 05-23-2024 07:28-0500 Body temperature 97.59 [degF] Galo Bernal 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 Work Phone: [facility] 05-23-2024 07:28-0500 Body weight 55.8 [facility] 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 Work Phone: [facility] 05-23-2024 07:28-0500 Diastolic blood pressure 82 mm[Hg] [facility] 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 Work Phone: [facility] 05-23-2024 07:28-0500 Heart rate 96 /min [facility] 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 Work Phone: [facility] 05-23-2024 07:28-0500 Respiratory rate 18 /min [facility] 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 Work Phone: [facility] 05-23-2024 07:28-0500 SaO2% (BldA) [Mass fraction] 96 % [facility] 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 Work Phone: [facility] 05-23-2024 07:28-0500 Systolic blood pressure 122 mm[Hg] [facility] 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 Work Phone: [facility] 05-15-2024 12:59-0500 Body mass index (BMI) [Ratio] 20.58 kg/m2 Anny SchneiderCuong 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 Work Phone: [facility] 05-15-2024 12:59-0500 Body temperature 98.2 [degF] Anny Hutchins 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 Work Phone: [facility] 05-15-2024 12:59-0500 Body weight 56.1 kg Anny Hutchins 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 Work Phone: [facility] 05-15-2024 12:59-0500 Diastolic blood pressure 84 mm[Hg] Anny SchneiderCuong 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 Work Phone: [facility] 05-15-2024 12:59-0500 Heart rate 88 /min Anny SchneiderCuong 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 Work Phone: [facility] 05-15-2024 12:59-0500 Respiratory rate 18 /min Anny SchneiderCuong 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 Work Phone: [facility] 05-15-2024 12:59-0500 Systolic blood pressure 122 mm[Hg] Anny Hutchins 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 Work Phone: [facility] 05-11-2024 08:43-0500 Body mass index (BMI) [Ratio] 20.4 kg/m2 Yodit Saxena 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 Work Phone: [facility] 05-11-2024 08:43-0500 Body temperature 97.59 [degF] Yodit Saxena 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 Work Phone: [facility] 05-11-2024 08:43-0500 Body weight 55.6 kg Yodit Saxena 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 Work Phone: [facility] 05-11-2024 08:43-0500 Diastolic blood pressure 88 mm[Hg] Yodit Saxena 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 Work Phone: [facility] 05-11-2024 08:43-0500 Heart rate 104 /min Yodit Saxena 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 Work Phone: [facility] 05-11-2024 08:43-0500 Respiratory rate 20 /min Yodit Saxena 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 Work Phone: [facility] 05-11-2024 08:43-0500 SaO2% (BldA) [Mass fraction] 98 % Yodit Saxena 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 Work Phone: [facility] 05-11-2024 08:43-0500 Systolic blood pressure 120 mm[Hg] Yodit Saxena 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 Work Phone: [facility] 05-10-2024 12:02-0500 Body mass index (BMI) [Ratio] 20.14 kg/m2 Karen Mckee MACHINE SIGN WRITER.V GROOVE CUTTER Work Phone: [facility] 05-10-2024 12:02-0500 Body weight 54.9 kg Karen Mckee MACHINE SIGN WRITER.V GROOVE CUTTER Work Phone: [facility] 05-10-2024 12:02-0500 Diastolic blood pressure 73 mm[Hg] Karen Mckee MACHINE SIGN WRITER.V GROOVE CUTTER Work Phone: [facility] 05-10-2024 12:02-0500 Heart rate 108 /min Karen Mckee MACHINE SIGN WRITER.V GROOVE CUTTER Work Phone: [facility] 05-10-2024 12:02-0500 Respiratory rate 16 /min Karen Mckee MACHINE SIGN WRITER.V GROOVE CUTTER Work Phone: [facility] 05-10-2024 12:02-0500 Systolic blood pressure 125 mm[Hg] Karen Mckee MACHINE SIGN WRITER.V GROOVE CUTTER Work Phone: [facility] 04-29-2024 20:50-0500 Body temperature 96.98 [degF] JUAN MIGUEL MANLEY MD [facility] 04-29-2024 20:50-0500 Body weight 56.4 kg JUAN MIGUEL MANLEY MD [facility] 04-29-2024 20:50-0500 Diastolic Blood Pressure Non-Invasive 85 mm[Hg] JUAN MIGUEL MANLEY MD [facility] 04-29-2024 20:50-0500 Heart rate 80 /min JUAN MIGUEL MANLEY MD [facility] 04-29-2024 20:50-0500 Respiratory rate 16 /min JUAN MIGUEL MANLEY MD [facility] 04-29-2024 20:50-0500 Systolic Blood Pressure Non-Invasive 126 mm[Hg] JUAN MIGUEL MANLEY MD [facility] 04-25-2024 13:04-0400 Body mass index (BMI) [Ratio] 20.58 kg/m2 Sam Erin 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 Work Phone: [facility] 04-25-2024 13:04-0400 Body weight 56.1 kg Sam Erin 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 Work Phone: [facility] 04-25-2024 13:04-0400 Diastolic blood pressure 88 mm[Hg] Sam Erin 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 Work Phone: [facility] 04-25-2024 13:04-0400 Heart rate 87 /min Sam Erin 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 Work Phone: [facility] 04-25-2024 13:04-0400 Respiratory rate 16 /min Sam Erin 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 Work Phone: [facility] 04-25-2024 13:04-0400 SaO2% (BldA) [Mass fraction] 99 % Sam Erin 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 Work Phone: [facility] 04-25-2024 13:04-0400 Systolic blood pressure 144 mm[Hg] Sam Erin 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 Work Phone: [facility] 04-13-2024 12:39-0400 Body mass index (BMI) [Ratio] 20.18 kg/m2 Pennie Praisler-Wood 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 Work Phone: [facility] 04-13-2024 12:39-0400 Body temperature 97 [degF] Pennie Praisler-Wood 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 Work Phone: [facility] 04-13-2024 12:39-0400 Body weight 55 kg Pennie Praisler-Wood 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 Work Phone: [facility] 04-13-2024 12:39-0400 Diastolic blood pressure 78 mm[Hg] Pennie Praisler-Wood 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 Work Phone: [facility] 04-13-2024 12:39-0400 Heart rate 78 /min Pennie Praisler-Wood 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 Work Phone: [facility] 04-13-2024 12:39-0400 Respiratory rate 16 /min Pennie Praisler-Wood 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 Work Phone: [facility] 04-13-2024 12:39-0400 SaO2% (BldA) [Mass fraction] 100 % Pennie Clemente 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 Work Phone: [facility] 04-13-2024 12:39-0400 Systolic blood pressure 112 mm[Hg] Pennie Clemente 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 Work Phone: [facility] 03-28-2024 [...] mass index (BMI) [Ratio] 20.21 kg/m2 Sam Khan 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 Work Phone: [facility] 02-28-2024 08:35-0400 Body temperature 97 [degF] Sam Khan 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 Work Phone: [facility] 02-28-2024 08:35-0400 Body weight 55.1 kg Sam Erin 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 Work Phone: [facility] 02-28-2024 08:35-0400 Diastolic blood pressure 80 mm[Hg] Sam Erin 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 Work Phone: [facility] 02-28-2024 08:35-0400 Heart rate 78 /min Sam Erin 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 Work Phone: [facility] 02-28-2024 08:35-0400 Respiratory rate 20 /min Sam Erin 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 Work Phone: [facility] 02-28-2024 08:35-0400 SaO2% (BldA) [Mass fraction] 97 % Sam Erin 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 Work Phone: [facility] 02-28-2024 08:35-0400 Systolic blood pressure 118 mm[Hg] Sam Erin 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 Work Phone: [facility] 02-16-2024 [...] 18:49-0400 SaO2% (BldA) [Mass fraction] 100 % Chris NASH Work Phone: [facility] 02-16-2024 18:49-0400 Systolic blood pressure 113 mm[Hg] Chris NASH Work Phone: [facility] 02-10-2024 17:05-0400 Diastolic Blood Pressure Non-Invasive 87 mm[Hg] JUAN MIGUEL MANLEY MD [facility] 02-10-2024 17:05-0400 Heart rate 95 /min JUAN MIGUEL MANLEY MD [facility] 02-10-2024 17:05-0400 Respiratory rate 16 /min JUAN MIGUEL MANLEY MD [facility] 02-10-2024 17:05-0400 Systolic Blood Pressure Non-Invasive 123 mm[Hg] JUAN MIGUEL MANLEY MD [facility] 02-10-2024 15:40-0400 Body temperature 97.16 [degF] JUAN MIGUEL MANLEY MD [facility] 02-10-2024 15:40-0400 Body weight 54.3 kg JUAN MIGUEL MANLEY MD [facility] 02-10-2024 15:40-0400 Diastolic Blood Pressure Non-Invasive 60 mm[Hg] JUAN MIGUEL MANLEY MD [facility] 02-10-2024 15:40-0400 Heart rate 111 /min JUAN MIGUEL MANLEY MD [facility] 02-10-2024 15:40-0400 Respiratory rate 18 /min JUAN MIGUEL MANLEY MD [facility] 02-10-2024 15:40-0400 Systolic Blood Pressure Non-Invasive 98 mm[Hg] JUAN MIGUEL MANLEY MD [facility] 02-07-2024 15:03-0400 Body height 165.1 cm [...] index (BMI) [Ratio] 20.8 kg/m2 Sam Erin 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 Work Phone: [facility] 01-25-2024 14:44-0400 Body weight 56.7 kg Sam Erin 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 Work Phone: [facility] 01-25-2024 14:44-0400 Diastolic blood pressure 66 mm[Hg] Sam Erin 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 Work Phone: [facility] 01-25-2024 14:44-0400 Heart rate 96 /min Sam Erin 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 Work Phone: [facility] 01-25-2024 14:44-0400 Respiratory rate 16 /min Sam Erin 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 Work Phone: [facility] 01-25-2024 14:44-0400 Systolic blood pressure 102 mm[Hg] Sam Erin 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 Work Phone: [facility] 01-11-2024 13:33-0400 Body mass index (BMI) [Ratio] 20.7 kg/m2 Sam Erin 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 Work Phone: [facility] 01-11-2024 13:33-0400 Body weight 56.43 kg Sam Erin 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 Work Phone: [facility] 01-11-2024 13:33-0400 Diastolic blood pressure 62 mm[Hg] Sam Erin 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 Work Phone: [facility] 01-11-2024 13:33-0400 Heart rate 86 /min Sam Erin 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 Work Phone: [facility] 01-11-2024 13:33-0400 Respiratory rate 18 /min Sam Erin 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 Work Phone: [facility] 01-11-2024 13:33-0400 SaO2% (BldA) [Mass fraction] 94 % Sam Erin 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 Work Phone: [facility] 01-11-2024 13:33-0400 Systolic blood pressure 96 mm[Hg] Sam Erin 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 Work Phone: [facility] 12-20-2023 07:50-0400 Body mass index (BMI) [Ratio] 19.8 kg/m2 Sam Erin 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 Work Phone: [facility] 12-20-2023 07:50-0400 Body weight 53.98 kg Sam Erin 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 Work Phone: [facility] 12-20-2023 07:50-0400 Diastolic blood pressure 80 mm[Hg] Sam Erin 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 Work Phone: [facility] 12-20-2023 07:50-0400 Heart rate 114 /min Sam Erin 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 Work Phone: [facility] 12-20-2023 07:50-0400 SaO2% (BldA) [Mass fraction] 97 % Sam Erin 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 Work Phone: [facility] 12-20-2023 07:50-0400 Systolic blood pressure 130 mm[Hg] Sam Erin 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 Work Phone: [facility] 11-11-2023 10:06-0400 Body mass index (BMI) [Ratio] 20.47 kg/m2 Sam Erin 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 Work Phone: [facility] 11-11-2023 10:06-0400 Body weight 55.79 kg Sam Erin 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 Work Phone: [facility] 11-11-2023 10:06-0400 Diastolic blood pressure 82 mm[Hg] Sam Erin 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 Work Phone: [facility] 11-11-2023 10:06-0400 Heart rate 85 /min Sam Erin 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 Work Phone: [facility] 11-11-2023 10:06-0400 SaO2% (BldA) [Mass fraction] 98 % Sam Erin 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 Work Phone: [facility] 11-11-2023 10:06-0400 Systolic blood pressure 110 mm[Hg] Sam Erin 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 Work Phone: [facility] 10-14-2023 11:26-0400 Body height 165.1 cm Sam Erin 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 Work Phone: [facility] 10-14-2023 11:26-0400 Body weight 55.79 kg Sam Erin 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 Work Phone: [facility] 10-14-2023 11:26-0400 Diastolic blood pressure 70 mm[Hg] Sam Erin 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 Work Phone: [facility] 10-14-2023 11:26-0400 Heart rate 107 /min Sam Erin 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 Work Phone: [facility] 10-14-2023 11:26-0400 Respiratory rate 12 /min Sam Erin 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 Work Phone: [facility] 10-14-2023 11:26-0400 SaO2% (BldA) [Mass fraction] 97 % Sam Erin 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 Work Phone: [facility] 10-14-2023 11:26-0400 Systolic blood pressure 132 mm[Hg] Sam Erin 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 Work Phone: [facility] 10-11-2023 10:16-0400 Body height 165.1 cm Louis Valencia MD Work Phone: [facility] 10-11-2023 10:16-0400 Body weight 55.79 kg Louis Valencia MD Work Phone: [facility] 10-11-2023 10:16-0400 Respiratory rate 20 /min Louis Valencia MD Work Phone: [facility] 09-27-2023 13:15-0400 Body temperature 96.3 [degF] Sam Erin 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 Work Phone: [facility] 09-27-2023 13:15-0400 Body weight 55.79 kg Sam Erin 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 Work Phone: [facility] 09-27-2023 13:15-0400 Diastolic blood pressure 60 mm[Hg] Sam Erin 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 Work Phone: [facility] 09-27-2023 13:15-0400 Heart rate 76 /min Sam Erin 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 Work Phone: [facility] 09-27-2023 13:15-0400 Respiratory rate 20 /min Sam Erin 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 Work Phone: [facility] 09-27-2023 13:15-0400 Systolic blood pressure 114 mm[Hg] Sam Erin 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 Work Phone: [facility] 09-26-2023 22:13-0400 Diastolic Blood Pressure Non-Invasive 76 mm[Hg] DR TU DE ANDA MD [facility] 09-26-2023 22:13-0400 Heart rate 63 /min DR TU DE ANDA MD [facility] 09-26-2023 22:13-0400 Respiratory rate 16 /min DR TU DE ANDA MD [facility] 09-26-2023 22:13-0400 Systolic Blood Pressure Non-Invasive 133 mm[Hg] DR TU DE ANDA MD [facility] 09-26-2023 19:34-0400 Body height 175.[address] TU DE ANDA MD [facility] 09-26-2023 19:34-0400 Body temperature 98.42 [degF] DR TU DE ANDA MD [facility] 09-26-2023 19:34-0400 Body weight 56.[address] TU DE ANDA MD [facility] 09-26-2023 19:34-0400 Diastolic Blood Pressure Non-Invasive 68 mm[Hg] DR TU DE ANDA MD [facility] 09-26-2023 19:34-0400 Heart rate 104 /min DR TU DE ANDA MD [facility] 09-26-2023 19:34-0400 Respiratory rate 18 /min DR TU DE ANDA MD [facility] 09-26-2023 19:34-0400 Systolic Blood Pressure Non-Invasive 143 mm[Hg] DR TU DE ANDA MD [facility] 09-13-2023 13:31-0400 Body height 165.1 cm Louis Valencia MD Work Phone: [facility] 09-13-2023 13:31-0400 Body weight 57.15 kg Louis Valencia MD Work Phone: [facility] 09-13-2023 13:31-0400 Respiratory rate 18 /min Louis Valencia MD Work Phone: [facility] 09-09-2023 15:05-0400 Body weight 57.15 kg Sam Erin 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 Work Phone: [facility] 09-09-2023 15:05-0400 Diastolic blood pressure 78 mm[Hg] Sam Erin 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 Work Phone: [facility] 09-09-2023 15:05-0400 Heart rate 78 /min Sam Erin 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 Work Phone: [facility] 09-09-2023 15:05-0400 Respiratory rate 16 /min Sam Erin 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 Work Phone: [facility] 09-09-2023 15:05-0400 Systolic blood pressure 124 mm[Hg] Sam Erin 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 Work Phone: [facility] 08-18-2023 09:17-0500 Body height 165.1 cm Pst 1 [facility] 08-18-2023 09:17-0500 Body temperature 98.6 [degF] Pst 1 [facility] [place] 08-18-2023 09:17-0500 Body weight 55.34 kg Pst 1 [facility] 08-18-2023 09:17-0500 Diastolic blood pressure 60 mm[Hg] Pst 1 [facility] 08-18-2023 09:17-0500 Heart rate 92 /min Pst 1 [facility] 08-18-2023 09:17-0500 Respiratory rate 16 /min Pst 1 [facility] 08-18-2023 09:17-0500 SaO2% (BldA) [Mass fraction] 98 % Pst 1 [facility] 08-18-2023 09:17-0500 Systolic blood pressure 124 mm[Hg] Pst 1 [facility] 08-11-2023 08:06-0500 Body temperature 99.5 [degF] Pennie Clemente 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 Work Phone: [facility] 08-11-2023 08:06-0500 Body weight 56.25 kg Pennie Praisler-Wood 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 Work Phone: [facility] 08-11-2023 08:06-0500 Diastolic blood pressure 83 mm[Hg] Pennie Praisler-Wood 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 Work Phone: [facility] 08-11-2023 08:06-0500 Heart rate 107 /min Pennie Praisler-Wood 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 Work Phone: [facility] 08-11-2023 08:06-0500 Respiratory rate 22 /min Pennie Praisler-Wood 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 Work Phone: [facility] 08-11-2023 08:06-0500 SaO2% (BldA) [Mass fraction] 97 % Pennie Praisler-Wood 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 Work Phone: [facility] 08-11-2023 08:06-0500 Systolic blood pressure 127 mm[Hg] Pennie Praisler-Wood 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 Work Phone: [facility] 08-09-2023 12:57-0500 Body height 165.1 cm Louis Valencia MD Work Phone: [facility] 08-09-2023 12:57-0500 Body weight 57.15 kg Louis Valencia MD Work Phone: [facility] 08-09-2023 12:57-0500 Respiratory rate 16 /min Louis Valencia MD Work Phone: [facility] 08-05-2023 13:35-0500 Body height 165.1 cm Sam Erin 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 Work Phone: [facility] 08-05-2023 13:35-0500 Body weight 57.38 kg Sam Rein 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 Work Phone: [facility] 08-05-2023 13:35-0500 Diastolic blood pressure 72 mm[Hg] Sam Erin 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 Work Phone: [facility] 08-05-2023 13:35-0500 Respiratory rate 16 /min Sam Erin 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 Work Phone: [facility] 08-05-2023 13:35-0500 Systolic blood pressure 118 mm[Hg] Sam Verduzcor 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 Work Phone: [facility] 08-01-2023 [...] 05-12-2023 09:22-0500 Heart rate 68 /min Charles Stanton 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 Work Phone: [facility] 05-12-2023 09:22-0500 Respiratory rate 16 /min Charles Prebish 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 Work Phone: [facility] 05-12-2023 09:22-0500 SaO2% (BldA) [Mass fraction] 100 % Charles Prebish 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 Work Phone: [facility] 04-30-2023 09:39-0400 Body weight 57.61 kg Rick Anderson MD Work Phone: [facility] 04-30-2023 09:39-0400 Diastolic blood pressure 85 mm[Hg] Rick Anderson MD Work Phone: [facility] 04-30-2023 09:39-0400 Heart rate 147 /min Rick Anderson MD Work Phone: [facility] 04-30-2023 09:39-0400 Respiratory rate 18 /min Rick Anderson MD Work Phone: [facility] 04-30-2023 09:39-0400 Systolic blood pressure 124 mm[Hg] Rick Anderson MD Work Phone: [facility] 04-30-2023 09:00-0400 Body temperature 97.81 [degF] Anny Older 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 Work Phone: [facility] 04-30-2023 09:00-0400 Diastolic blood pressure 84 mm[Hg] Anny Older 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 Work Phone: [facility] 04-30-2023 09:00-0400 Heart rate 149 /min Anny Older 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 Work Phone: [facility] 04-30-2023 09:00-0400 Respiratory rate 20 /min Anny Older 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 Work Phone: [facility] 04-30-2023 09:00-0400 SaO2% (BldA) [Mass fraction] 99 % Anny Older 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 Work Phone: [facility] 04-30-2023 09:00-0400 Systolic blood pressure 117 mm[Hg] Anny Older 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 Work Phone: [facility] 04-25-2023 15:02-0400 Body weight 58.06 kg Sam Erin 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 Work Phone: [facility] 04-25-2023 15:02-0400 Diastolic blood pressure 80 mm[Hg] Sam Erin 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 Work Phone: [facility] 04-25-2023 15:02-0400 Heart rate 119 /min Sam Erin 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 Work Phone: [facility] 04-25-2023 15:02-0400 SaO2% (BldA) [Mass fraction] 98 % Sam Erin 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 Work Phone: [facility] 04-25-2023 15:02-0400 Systolic blood pressure 110 mm[Hg] Sam Erin 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 Work Phone: [facility] 03-15-2023 09:57-0400 Body height 165.[address] LAVONNE WEAVER MD [facility] 03-15-2023 09:57-0400 Body temperature 98.42 [degF] DR LAVONNE WEAVER MD [facility] 03-15-2023 09:57-0400 Body weight 56.[address] LAVONNE WEAVER MD [facility] 03-15-2023 09:57-0400 Diastolic Blood Pressure Non-Invasive [address] LAVONNE WEAVER MD [facility] 03-15-2023 09:57-0400 Heart rate 117 /min DR LAVONNE WEAVER MD [facility] 03-15-2023 09:57-0400 Respiratory rate 20 /min DR LAVONNE WEAVER MD [facility] 03-15-2023 09:57-0400 Systolic Blood Pressure Non-Invasive [address] LAVONNE WEAVER MD [facility] 02-08-2023 12:04-0400 Body weight 58.06 kg Sam Erin 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 Work Phone: [facility] 02-08-2023 12:04-0400 Diastolic blood pressure 80 mm[Hg] Sam Erin 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 Work Phone: [facility] 02-08-2023 12:04-0400 Heart rate 103 /min Sam Erin 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 Work Phone: [facility] 02-08-2023 12:04-0400 SaO2% (BldA) [Mass fraction] 99 % Sam Erin 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 Work Phone: [facility] 02-08-2023 12:04-0400 Systolic blood pressure 102 mm[Hg] Sam Erin 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 Work Phone: [facility] 01-25-2023 12:53-0400 Body temperature 98.06 [degF] JUAN MIGUEL MANLEY MD [facility] 01-25-2023 12:53-0400 Diastolic Blood Pressure Non-Invasive 84 1 JUAN MIGUEL MANLEY MD [facility] 01-25-2023 12:53-0400 Heart rate 112 /min JUAN MIGUEL MANLEY MD [facility] 01-25-2023 12:53-0400 Respiratory rate 18 /min JUAN MIGUEL MANLEY MD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 Coordinator cam[place] Disease Visit Annual PCP Team Chronic Disease Visit [facility] Start: 05-15-2025 Annual PCP Team Recycling Coordinator cam[place] Disease Visit Annual PCP Team Chronic Disease Visit [facility] Start: 05-07-2025 End: 05-07-2025 Patient encounter procedure 05/07/2025 1:40 PM EST Office Visit [facility] [place] [address] [place] [address] Karen Mckee APRN.V GROOVE CUTTER [address] [place] [address] 3 month follow up [facility] Comment on above: 3 month follow up Start: 04-25-2025 Annual PCP Team Recycling Coordinator cam[place] Disease Visit Annual PCP Team Chronic Disease Visit [facility] Start: 04-22-2025 End: 04-22-2025 Patient encounter procedure 04/22/2025 10:50 AM EDT Office Visit OB/Gynecology [address] [place] [address] Stephy Simpson MD [address] [place] [id number] POST OP OB/Gynecology Comment on above: POST OP Start: 03-28-2025 Annual PCP Team Recycling Coordinator camden Disease Visit Annual PCP Team Chronic Disease Visit [facility] Start: 03-28-2025 Covid-19 Vaccine () Covid-19 Vaccine () [facility] Comment on above: Postponed from 02/25 (Declined at this time) Start: 03-22-2025 End: 03-22-2025 Patient encounter procedure 03/22/2025 1:10 PM EDT Office Visit OB/Gynecology [address] [place], [place] [phone] Stephy Simpson MD [address] [place] [phone] 1 week post-op OB/Gynecology Comment on above: 1 week post-op Start: 02-27-2025 Annual PCP Team Recycling Coordinator camden Disease Visit Annual PCP Team Chronic Disease Visit [facility] Start: 02-26-2025 End: 02-26-2025 Patient encounter procedure 02/26/2025 3:20 PM EDT Office Visit OB/Gynecology [address] [place] [address] Stephy Simpson MD [address] [place] [address] Consult for hysterectomy OB/Gynecology Comment on above: Consult for hysterec lulu Start: 02-25-2025 Influenza vaccination [facility] Start: 02-04-2025 End: 02-04-2025 Patient encounter procedure 02/04/2025 4:40 PM EDT Office Visit [facility] [place] [address] [place] [address] Maile Norman MD [address] [place] [address] 3 month follow up [facility] Comment on above: 3 month follow up Start: 01-28-2025 End: 01-28-2025 ambulatory 01/28/2025 2:45 PM EDT OT/PT/Speech Visit [facility] [address] [place] [address] Kofi Gannon, PT S/P right rotator cuff repair [Z98.890] [facility] Comment on above: S/P right rotator cu ff repair [Z98.890] Start: 01-24-2025 Annual PCP Team Recycling Coordinator camden Disease Visit Annual PCP Team Chronic Disease Visit [facility] Start: 2025 End: 2025 Manual pelvic examination OB/Gynecology Comment on above: Pelvic pain in femal e [R10.2] Pelvic pain in femal e Start: 01-21-2025 End: 01-21-2025 ambulatory 01/21/2025 2:00 PM EDT OT/PT/Speech Visit [facility] [address] [place] [address] Claire Harrington, SCREW MACHINE ADJUSTER AUTOMATIC [address] [place] [address] S/P right rotator cuff repair [Z98.890] [facility] Comment on above: S/P right rotator cu ff repair [Z98.890] Start: 01-14-2025 End: 01-14-2026 US Pelvis PELVIC US [facility] Anc Imaging Routine Pelvic pain in female Expected: 01/14/2025, Expires: 01/14/2026 [facility] Work Phone: Comment on above: Expected: 01/14/2025 , Expires: 01/14/2026 Start: 01-14-2025 End: 01-14-2025 ambulatory 01/14/2025 11:45 AM EDT OT/PT/Speech Visit [facility] [address] [place] [address] Claire Harrington, UMA [address] [place] [address] S/P right rotator cuff repair [Z98.890] [facility] Comment on above: S/P right rotator cu ff repair [Z98.890] Start: 01-10-2025 Annual PCP Team Recycling Coordinator camden Disease Visit Annual PCP Team Chronic Disease Visit [facility] Start: 01-04-2025 End: 01-04-2025 Patient encounter procedure 01/04/2025 1:15 PM EDT Office Visit Orthopedics [address] [facility] [address] [place] [address] Louis Valencia MD [address] [facility] [place] [phone] right shoulder Orthopedics Comment on above: right shoulder Start: 01-03-2025 End: 01-03-2025 Patient encounter procedure 01/03/2025 8:30 AM EDT Office Visit [facility] [address] [place] [address] Charles Stanton APRN.ORACLE REPORTS DEVELOPER [address] [place] [address] S/P shoulder surgery [Z98.890]; Traumatic tear of right rotator cuff, unspecified tear extent, subsequent encounter [S46.011D]; Acute pain of right shoulder [M25.511] [facility] [...] ambulatory 12/24/2024 10:45 AM EDT OT/PT/Speech Visit [facility] [address] [place] [address] Kofi Gannon PT Z98.890 (ICD-10-CM) - S/P right rotator cuff repair [facility] Comment on above: Z98.890 (ICD-10-CM) - S/P right rotator cuff repair Start: 12-19-2024 Annual PCP Team Recycling Coordinator camden Disease Visit Annual PCP Team Chronic Disease Visit [facility] Start: 12-17-2024 End: 12-17-2024 ambulatory 12/17/2024 10:15 AM EDT OT/PT/Speech Visit [facility] [address] [place] [address] Claire Harrington, SCREW MACHINE ADJUSTER AUTOMATIC [address] [place] [address] Z98.890 (ICD-10-CM) - S/P right rotator cuff repair [facility] Comment on above: Z98.890 (ICD-10-CM) - S/P right rotator cuff repair Start: 12-10-2024 End: 12-10-2024 ambulatory 12/10/2024 9:45 AM EDT OT/PT/Speech Visit [facility] [address] [place] [address] Kofi Gannon, PT Z98.890 (ICD-10-CM) - S/P right rotator cuff repair [facility] Comment on above: Z98.890 (ICD-10-CM) - S/P right rotator cuff repair Start: 12-03-2024 End: 12-03-2024 ambulatory 12/03/2024 9:30 AM EDT OT/PT/Speech Visit [facility] [address] [place] [address] Claire Harrington, SCREW MACHINE ADJUSTER AUTOMATIC [address] [place] [address] Z98.890 (ICD-10-CM) - S/P right rotator cuff repair [facility] Comment on above: Z98.890 (ICD-10-CM) - S/P right rotator cuff repair Start: 11-30-2024 End: 11-30-2024 Patient encounter procedure 11/30/2024 8:00 AM EDT Office Visit [facility] [place] [address] [facility] [place] [address] Sam Khan APRN.ORACLE REPORTS DEVELOPER [address] [place] [address] 2 wk follow up [facility] Comment on above: 2 wk follow up Start: 11-28-2024 End: 11-28-2024 Patient encounter procedure 11/28/2024 11:40 AM EDT Office Visit [facility] [place] [address] [facility] [place] [address] Sam Khan APRN.ORACLE REPORTS DEVELOPER [address] [place] [address] 2 wk follow up [facility] Comment on above: 2 wk follow up Start: 11-26-2024 End: 11-26-2024 ambulatory 11/26/2024 9:00 AM EDT OT/PT/Speech Visit [facility] [address] [place] [address] Jagdeep, Kofi, PT Post Op PT [facility] Comment on above: Post Op PT Start: 11-23-2024 End: 11-23-2024 Patient encounter procedure 11/23/2024 2:15 PM EDT Office Visit Orthopedics [address] [phone] Louis Valencia MD [address] [facility] [address] [place], [place] [address] S/P Right shoulder Dx arthroscopy 10-12-2024 Orthopedics Comment on above: S/P Right shoulder D x arthroscopy 10-12-2024 Start: 11-14-2024 End: 11-14-2024 ambulatory 11/14/2024 9:00 AM EDT OT/PT/Speech Visit [facility] [address] [place], [place] [id number] Jono Gallego, PT [address] [place] [address] Post Op PT [facility] Comment on above: Post Op PT Start: 11-10-2024 Annual PCP Team Recycling Coordinator camden Disease Visit Annual PCP Team Chronic Disease Visit [facility] Start: 11-02-2024 End: 11-02-2024 Patient encounter procedure [facility] Comment on above: 3 month follow up Start: 10-26-2024 End: 10-26-2024 Patient encounter procedure 10/26/2024 3:00 PM EDT Office Visit Orthopedics [facility] [address] [phone] Louis Valencia MD [address] [facility] [address] [place] [address] S/P Right shoulder Dx arthroscopy 10-12-2024 Orthopedics Comment on above: S/P Right shoulder D x arthroscopy 10-12-2024 Start: 10-19-2024 End: 10-19-2024 ambulatory 10/19/2024 9:30 AM EDT OT/PT/Speech Visit [facility] [address] [place] [address] Jono Gallego, PT [address] [place] [address] Post Op PT [facility] Comment on above: Post Op PT Start: 10-19-2024 End: 10-19-2024 Patient encounter procedure 10/19/2024 9:20 AM EDT Office Visit [facility] [place] [address] [place] [address] Maile Norman MD [address] [place] [address] Pain management after surgery. 2nd rotator cuff surgery. [facility] [place] Comment on above: Pain management afte r surgery. 2nd rotator cuff surgery. Start: 10-13-2024 Annual PCP Team Recycling Coordinator cam[place] Disease Visit Annual PCP Team Chronic Disease Visit [facility] Start: 10-12-2024 End: 10-12-2024 Admission to same day surgery center 10/12/2024 10:50 AM EDT - 10/12/2024 12:31 PM EDT Surgery [facility] [address] [place] [address] Louis Valencia MD [address] [place] [address] ARTHROSCOPY SHOULDER [facility] Comment on above: ARTHROSCOPY SHOULDER Start: 10-12-2024 End: 10-12-2024 Arthroscopy shoulder dx w/wo synovial biopsy spx ARTHROSCOPY SHOULDER S/P right rotator cuff repair Right shoulder pain, unspecified chronicity 10/12/2024 10:50 AM EDT ME OR Start: 10-12-2024 Subsequent hospital visit by physician 10/12/2024 10:50 AM EDT Hospital Encounter [facility] [address] [place] [address] Louis Valencia MD [address] [place] [address] S/P right rotator cuff repair [Z98.890], Right shoulder pain, unspecified chronicity [M25.511] [facility] Comment on above: S/P right rotator cu ff repair [Z98.890], Right shoulder pain, unspecified chronicity [M25.511] Start: 09-28-2024 End: 09-28-2024 Anesthesia consultation 09/28/2024 9:20 AM EDT PAT Pre Anesthesia [address] [place] [address] 1, Pacc [place] [address] [place] [address] 10/12 DECLINED VV ARTHROSCOPY SHOULDER [1111] - Shoulder - Right Pre Anesthesia Comment on above: 10/12 DECLINED VV ART HROSCOPY SHOULDER [1111] - Shoulder - Right Start: 09-26-2024 Annual PCP Team Recycling Coordinator camden Disease Visit Annual PCP Team Chronic Disease Visit [facility] Start: 09-14-2024 End: 09-14-2024 Patient encounter procedure 09/14/2024 1:45 PM EDT Office Visit Orthopedics [address] [facility] [address] [place] [phone] Louis Valencia MD [address] [facility] [facility] [address] [place] [address] 6 week follow up Orthopedics Comment on above: 6 week follow up Start: 09-08-2024 Annual PCP Team Recycling Coordinator camden Disease Visit Annual PCP Team Chronic Disease Visit [facility] Start: 09-08-2024 Covid-19 Vaccine ( season) Covid-19 Vaccine () [facility] Comment on above: Postponed from 02/25 (Declined at this time) Start: 08-05-2024 Annual PCP Team Recycling Coordinator cam[place] Disease Visit Annual PCP Team Chronic Disease Visit [facility] Start: 07-31-2024 End: 07-31-2024 Patient encounter procedure 07/31/2024 10:00 AM EST Office Visit [facility] [place] [address] [place] [address] Maile Norman MD [address] [place] [address] 3 month follow up [facility] Comment on above: 3 month follow up Start: 07-27-2024 End: 07-27-2024 Patient encounter procedure 07/27/2024 2:15 PM EST Office Visit Orthopedics [address] [facility] [address] [place] [address] Louis Valencia MD [address] [facility] [place] [address] injection, MRI results Orthopedics Comment on above: injection, MRI resul ts Start: 07-13-2024 End: 10-12-2024 Comprehensive metabolic 2000 panel - Serum or Plasma [facility] Work Phone: Comment on above: Expected: [...] EST Appointment Mammogram [address] [place] [address] KEYON SCREENING W TERESITA Mammogram Comment on above: KEYON SCREENING W TERESITA Start: 07-09-2024 End: 07-09-2024 Patient encounter procedure 07/09/2024 7:30 AM EST Office Visit OB/Gynecology [address] [place] [address] Cecile Patricia APRN.ORACLE REPORTS DEVELOPER [address] [place] [address] Annual, Pap, Interested in pre menopause info OB/Gynecology Comment on above: Annual, Pap, Interes hira in pre menopause info Start: 06-19-2024 End: 06-19-2024 Patient encounter procedure 06/19/2024 7:30 AM EST Appointment Radiology [address] [place] [address] S/P right rotator cuff repair [Z98.890] Radiology Comment on above: S/P right rotator cu ff repair [Z98.890] Start: 06-06-2024 End: 06-06-2024 Patient encounter procedure 06/06/2024 8:30 AM EST Office Visit General Surgery [address] [address] John Maher MD [address] [place] [address] Dx: Injury of left upper extremity, subsequent encounter [S49.92XD (ICD-10-CM)]; Mass of left upper extremity [R22.32 (ICD-10-CM)] General Surgery Comment on above: Dx: Injury of left u pper extremity, subsequent encounter [S49.92XD (ICD-10-CM)]; Mass of left upper extremity [R22.32 (ICD-10-CM)] Start: 05-21-2024 End: 05-21-2024 Patient encounter procedure 05/21/2024 9:40 AM EST Office Visit [facility] [address] [place], [place] [phone] Anny Hutchins, MACHINE SIGN WRITER.ORACLE REPORTS DEVELOPER [address] [place] [address] follow-up - blister on right hand [facility] [place] Comment on above: follow-up - blister on right hand Start: 05-11-2024 End: 08-10-2024 Herpes simplex virus+Varicella zoster virus DNA [Presence] in Unspecified specimen by MARY KAY with probe detection HSV1,2/VZV NAAT LESION Lab Routine Rash Expected: 05/11/2024, Expires: 08/10/2024 [facility] Work Phone: Comment on above: Expected: 05/11/2024 , Expires: 08/10/2024 Start: 04-25-2024 End: 04-25-2024 Patient encounter procedure 04/25/2024 1:00 PM EDT Office Visit [facility] [place] [address] [place], [place] [address] Sam Khan APRN.ORACLE REPORTS DEVELOPER [address] [place], [place] [phone] 4 week follow up post suture removel left arm [facility] [place] Comment on above: 4 week follow up pos t suture removel left arm Start: 02-28-2024 End: 05-29-2024 CBC W Auto Differential panel - Blood [facility] Work Phone: Comment on above: Expected: [...] procedure 02/07/2024 3:15 PM EDT Office Visit [facility] [address] [place], [place] [address] Louis Valencia MD [address] [place], [place] [phone] est pt post op left shoulder [facility] Comment on above: est pt post op left shoulder Start: 01-25-2024 End: 01-25-2024 Patient encounter procedure 01/25/2024 3:00 PM EDT Office Visit [facility] [place] [address] [place], [place] [phone] Sam Khan APRN.ORACLE REPORTS DEVELOPER [address] [place] [phone] 2 wk follow up [facility] [place] Comment on above: 2 wk follow up Start: 01-11-2024 COVID-19 VACCINE (#1) COVID-19 VACCI NE (#1) [facility] Comment on above: Postponed from 07/25 (Declined at this time) Start: 01-10-2024 End: 01-10-2024 Patient encounter procedure 01/10/2024 8:40 AM EDT Office Visit [facility] [place] [address] [place] [address] Sam Khan APRN.ORACLE REPORTS DEVELOPER [address] [place] [phone] 3 week medication follow up [facility] Comment on above: 3 week medication fo llow up Start: 12-20-2023 End: 12-20-2023 Patient encounter procedure 12/20/2023 8:00 AM EDT Office Visit [facility] [address] [place], [place] [phone] Sam Khan APRN.ORACLE REPORTS DEVELOPER [facility] [place], [place] [phone] med check [facility] [place] Comment on above: med check Start: 12-14-2023 End: 12-14-2023 Patient encounter procedure 12/14/2023 2:40 PM EDT Office Visit [facility] [place] [address] [facility] [place] [address] Sam Khan APRN.ORACLE REPORTS DEVELOPER [address] [place] [address] Review pain medication [facility] [place] Comment on above: Review pain medicati on Start: 12-14-2023 End: 12-14-2023 ambulatory 12/14/2023 1:30 PM EDT OT/PT/Speech Visit [facility] [address] [place] [address] O'Lobito, Yodit, PT right shoulder post op [facility] Comment on above: right shoulder post op Start: 12-07-2023 End: 12-07-2023 ambulatory 12/07/2023 12:45 PM EDT OT/PT/Speech Visit [facility] [address] [address] O'Lobito, Yodit, PT right shoulder post op [facility] Comment on above: right shoulder post op Start: 11-30-2023 End: 11-30-2023 ambulatory 11/30/2023 12:45 PM EDT OT/PT/Speech Visit [facility] [address] [place] [address] O'Lobito, Yodit, PT right shoulder post op [facility] Comment on above: right shoulder post op Start: 11-24-2023 End: 11-24-2023 ambulatory 11/24/2023 9:30 AM EDT OT/PT/Speech Visit [facility] [address] [place] [address] O'Lobito, Yodit, PT right shoulder post op [facility] Comment on above: right shoulder post op Start: 11-22-2023 End: 11-22-2023 Patient encounter procedure 11/22/2023 1:15 PM EDT Office Visit [facility] [address] [place] [address] Louis Valencia MD [address] [facility] [place] [address] RIGHT SHOULDER [facility] Comment on above: RIGHT SHOULDER Start: 11-16-2023 End: 11-16-2023 ambulatory 11/16/2023 12:45 PM EDT OT/PT/Speech Visit [facility] [address] [place] [address] O'LobitoYodit jack, PT right shoulder post op [facility] Comment on above: right shoulder post op Start: 11-11-2023 End: 11-11-2023 Patient encounter procedure 11/11/2023 10:20 AM EDT Office Visit [facility] [place] [address] [place] [address] Sam Khan APRN.ORACLE REPORTS DEVELOPER [address] [place], [place] [address] Review pain medication [facility] [place] Comment on above: Review pain medicati on Start: 11-09-2023 End: 11-09-2023 ambulatory 11/09/2023 1:30 PM EDT OT/PT/Speech Visit [facility] [address] [place] [address] O'LobitoYodit jack, PT right shoulder post op [facility] Comment on above: right shoulder post op Start: 10-25-2023 End: 10-25-2023 ambulatory 10/25/2023 11:15 AM EDT OT/PT/Speech Visit [facility] [address] [place] [address] O'LobitoYodit jack, PT [facility] Comment on above: [facility] Start: 02-25-2023 Covid-19 Vaccine ( season) Covid-19 Vaccine ( season) [facility] Start: 02-25-2023 Influenza vaccination [facility] Start: 12-24-2022 Influenza vaccination INFLUENZA [...] Routine URI, acute Expected: 07/18/2022, Expires: 08/01/2022 [facility] Work Phone: Comment on above: Expected: [...] Insomnia, unspecified type Expected: 05/07/2022, Expires: 07/07/2022 [facility] Work Phone: Comment on above: Expected: 05/07/2022 , Expires: 07/07/2022 Start: 05-07-2022 End: 07-07-2022 Comprehensive metabolic 2000 panel - Serum or Plasma COMP METABOLIC PANEL Lab Routine Insomnia, unspecified type Expected: 05/07/2022, Expires: 07/07/2022 [facility] Work Phone: Comment on above: Expected: 05/07/2022 , Expires: 07/07/2022 Start: 03-05-2022 End: 05-05-2022 CBC panel - Blood by Automated count CBC Lab Routine Encounter for long-term current use of medication Expected: 03/05/2022, Expires: 05/05/2022 [facility] Work Phone: Comment on above: Expected: 03/05/2022 , Expires: 05/05/2022 Start: 03-05-2022 End: 05-05-2022 Comprehensive metabolic 2000 panel - Serum or Plasma COMP METABOLIC PANEL Lab Routine Encounter for long-term current use of medication Expected: 03/05/2022, Expires: 05/05/2022 [facility] Work Phone: Comment on above: Expected: 03/05/2022 , Expires: 05/05/2022 Start: 02-25-2022 Influenza vaccination [facility] Start: 2022 [facility] 3-dose series) [facility] Start: 2009 HPV Vaccine (1 - 3-d ose SCDM series) HPV Vaccine (1 - 3-dose SCDM series) [facility] Start: 2001 Urine microalbumin profile DTAP,TDAP,TD (1 - Tdap) [facility] Start: 01-23-1988 PNEUMOCOCCAL (1 - PCV) PNEUMOCOCCAL (1 - PCV) [facility] Start: 01-23-1988 Pneumococcal vaccination Pneumococcal Vaccine (1 - PCV) [facility] Start: 1987 COVID-19 Vaccine (1) COVID-19 Vaccin e (1) [facility] Start: 01-29-1983 COVID-19 VACCINE (#1) COVID-19 VACCI NE (#1) [facility] Bacteria identified in Urine by Culture URINE CULTURE Microbiology Routine Dysuria 04/30/2023 9:30 AM EDT [facility] Work Phone: End: 06-25-2023 Bx breast w/device 1st lesion ultrasound guid US BIOPSY BREAST RT Radiology Routine Mass of right breast, unspecified quadrant 1 Occurrences starting 05/26/2022 until 06/25/2023 [facility] Work Phone: Comment on above: 1 Occurrences starti ng 05/26/2022 until 06/25/2023 COVID & INFLUENZA A/ B & RSV NAAT, ROUTINE COVID & INFLUENZA A/B & RSV NAAT, ROUTINE Microbiology Routine Flu-like symptoms URI, acute Ordered: 08/01/2023 [facility] Work Phone: Comment on above: Ordered: 08/01/2023 End: 02-09-2025 DBT Breast - bilateral screening [facility] SCREENING W TERESITA Radiology Routine Encounter for screening mammogram for breast cancer 1 Occurrences starting 01/11/2024 until 02/09/2025 [facility] Work Phone: Comment on above: 1 [...] breast 1 Occurrences starting 05/11/2022 until 06/10/2023 [facility] Work Phone: Comment on above: 1 Occurrences starti ng 05/11/2022 until 06/10/2023 End: 06-30-2023 Diagnostic mammography computer-aided detcj bi [facility] DIAGNOSTIC BILAT Radiology Routine Abnormal finding on radiological examination of breast 1 Occurrences starting 05/31/2022 until 06/30/2023 [facility] Work Phone: Comment on above: 1 Occurrences starti ng 05/31/2022 until 06/30/2023 End: 06-06-2023 Diagnostic mammography computer-aided detcj uni [facility] DIAGNOSTIC RT Radiology Routine Breast pain Mass of lower inner quadrant of right breast 1 Occurrences starting 05/07/2022 until 06/06/2023 [facility] Work Phone: Comment on above: 1 Occurrences starti ng 05/07/2022 until 06/06/2023 ECG COMPLETE ECG COMPLETE ECG Routine Tachycardia Ordered: 04/30/2023 [facility] Work Phone: Comment on above: Ordered: 04/30/2023 Hepb vaccine adult 2 dose schedule for im use HEPLISAV B (HEPATITIS B, ADJUVANT, ADULT) Immunization/Injection Routine Encounter for immunization Ordered: 05/07/2022 [facility] Work Phone: Comment on above: Ordered: 05/07/2022 Influenza virus A an d B RNA and SARS-CoV-2 (COVID-19) N gene panel - Respiratory specimen by MARY KAY with probe detection COVID WITH FLUA+B, ROUTINE Microbiology Routine Viral illness 01/20/2022 4:05 PM EDT [facility] Work Phone: Influenza virus A an d B RNA and SARS-CoV-2 (COVID-19) N gene panel - Respiratory specimen by MARY KAY with probe detection COVID WITH FLUA+B, ROUTINE Microbiology Routine Viral URI with cough 09/09/2022 10:51 AM EDT [facility] Work Phone: Influenza virus A an d B RNA and SARS-CoV-2 (COVID-19) N gene panel - Respiratory specimen by MARY KAY with probe detection COVID & INFLUENZA A/B NAAT, ROUTINE Microbiology Routine Acute cough 08/11/2023 9:10 AM [facility] Work Phone: End: 03-10-2024 [facility] SCREENING KEYON SCREENING Radiology Routine Encounter for screening mammogram for breast cancer 1 Occurrences starting 02/09/2023 until 03/10/2024 [facility] Work Phone: Comment on above: 1 Occurrences starti ng 02/09/2023 until 03/10/2024 End: 03-08-2025 MR Shoulder - right WO contrast MRI SHOULDER WO IVCON RIGHT Radiology Routine S/P right rotator cuff repair Right shoulder pain, unspecified chronicity 1 Occurrences starting 02/07/2024 until 03/08/2025 [facility] Work Phone: Comment on above: 1 Occurrences starti ng 02/07/2024 until 03/08/2025 End: 03-09-2024 MRI SHOULDER WO/W IVCON RIGHT MRI SHOULDER WO/W IVCON RIGHT Radiology Routine Tear of right glenoid labrum, subsequent encounter Chronic right shoulder pain 1 Occurrences starting 02/08/2023 until 03/09/2024 [facility] Work Phone: Comment on above: 1 Occurrences starti ng 02/08/2023 until 03/09/2024 PAP TEST PAP TEST Lab [facility] Screening for cervical cancer Encounter for screening for human papillomavirus (HPV) Ordered: 07/09/2024 [facility] Work Phone: Comment on above: Ordered: 07/09/2024 End: 12-31-2023 Radex sacrum & coccyx minimum 2 views XR SACRUM/COCCYX 3V AP/LAT Radiology Routine Coccydynia 1 Occurrences starting 12/01/2022 until 12/31/2023 [facility] Work Phone: Comment on above: 1 Occurrences starti ng 12/01/2022 until 12/31/2023 Radex sacrum & coccy x minimum 2 views XR SACRUM/COCCYX 3V AP/LAT Radiology Routine Coccydynia 12/01/2022 2:08 PM EDT [facility] Work Phone: End: 04-02-2023 Screening mammography bi 2-view breast inc cad [facility]ON SCREENING Radiology Routine Encounter for screening mammogram for breast cancer 1 Occurrences starting 03/03/2022 until 04/02/2023 [facility] Work Phone: Comment on above: 1 Occurrences starti ng 03/03/2022 until 04/02/2023 UA DIP B/O UA DIP B/O Lab R outine Acute cystitis with hematuria Ordered: 04/25/2023 [facility] Work Phone: Comment on above: Ordered: 04/25/2023 End: 06-06-2023 Us breast uni real time with image limited US BREAST LTD RT Radiology Routine Breast pain Mass of lower inner quadrant of right breast 1 Occurrences starting 05/07/2022 until 06/06/2023 [facility] Work Phone: Comment on above: 1 Occurrences starti ng 05/07/2022 until 06/06/2023 End: 06-30-2023 Us breast uni real time with image limited US BREAST LTD RT Radiology Routine Abnormal finding on radiological examination of breast 1 Occurrences starting 05/31/2022 until 06/30/2023 [facility] Work Phone: Comment on above: 1 Occurrences starti ng 05/31/2022 until 06/30/2023 End: 05-25-2024 XR Hand - right PA and Lateral and Oblique XR HAND GENERAL 3V PA/LAT/OBL RIGHT Radiology STAT Pain of right hand 1 Occurrences starting 05/23/2024 until 05/25/2024 [facility] Work Phone: Comment on above: 1 Occurrences starti ng 05/23/2024 until 05/25/2024 End: 10-21-2025 XR HIP BILATERAL 5V PEL/AP/LAT EACH HIP XR HIP BILATERAL 5V PEL/AP/LAT EACH HIP Radiology Routine Right hip pain 1 Occurrences starting 09/21/2024 until 10/21/2025 [facility] Work Phone: Comment on above: 1 Occurrences starti ng 09/21/2024 until 10/21/2025 XR HIP BILATERAL 5V PEL/AP/LAT EACH HIP XR HIP BILATERAL 5V PEL/AP/LAT EACH HIP Radiology Routine Right hip pain 09/21/2024 9:28 AM EDT [facility] Immunizations Immunization Date Immunization Notes Care Provider Rosaura elena 03-18-2024 tetanus toxoid, reduced diphtheria toxoid, and acellular pertussis vaccine, adsorbed Sam Erin MACHINE SIGN WRITER.ORACLE REPORTS DEVELOPER Work Phone: [facility] 04-30-2023 influenza, injectable, quadrivalent, contains preservative Rick Anderson MD Work Phone: [facility] 04-30-2023 pneumococcal (PCV20) vaccine, 20 valent (PREVNAR 20) Rick Anderson MD Work Phone: [facility] 04-30-2023 pneumococcal Conjugate, unspecified formulation Rick Anderson MD Work Phone: [facility] Work Phone: 04-30-2023 influenza virus vaccine, unspecified formulation Sam Erin MACHINE SIGN WRITER.ORACLE REPORTS DEVELOPER Work Phone: [facility] 03-15-2022 tetanus toxoid, reduced diphtheria toxoid, and acellular pertussis vaccine, adsorbed Karen Mckee MACHINE SIGN WRITER.V GROOVE CUTTER Work Phone: [facility] Work Phone: 06-16-2017 influenza virus vaccine, unspecified formulation Sam Erin MACHINE SIGN WRITER.ORACLE REPORTS DEVELOPER Work Phone: [facility] 04-21-2016 [...] B vaccine (recombinant), CpG adjuvanted Karen Mckee APRN.CNS Work Phone: [facility] Work Phone: Comment on above: Deferred: Postponed Payers Date Payer Category Payer Self-pay 2023 Unknown [id number] 2022 Unknown [id number] 2021 Unknown [id number] 2019 Medicaid [place] [employer] [place] [employer] [id number] 2019-Present [phone] [place] [address] Medicaid [id number] 2019 Medicaid [id number] [id number] 1982 Unknown [id number] 2.16840.1.717665.3.579.2 1982 Unknown [id number] 2.840.1.392031.3.579.2 1982 Unknown [id number] 2.16840.1.280504.3.579.2 1982 Unknown [id number] 2.16840.1.114296.3.579.2 1982 Unknown [id number] 2.16840.1.785675.3.579.2 1982 Unknown [id number] 2.16840.1.628193.3.579.2 1982 Unknown [id number] 2.16.840.1.344941.3.579.2.627 1982 Unknown [id number] 2.16.840.1.067115.3.579.2.627 Unknown [id number] 2.16.840.1.739104.3.579.2.627 Unknown [id number] 2.16.840.1.858066.3.579.2.627 Unknown [id number] 2.16.840.1.637425.3.579.2.462 Unknown [id number] 2.16.840.1.290222.3.579.2.462 Unknown [id number] 2.16.840.1.326756.3.579.2.462 Unknown [id number] 2.840.1.558064.3.579.2.462 Unknown [id number] 2.16.840.1.852478.3.579.2.462 Unknown [id number] 2.16.840.1.572497.3.579.2.462 Unknown [id number] 2.16.840.1.395282.3.579.2.462 Unknown [id number] 2.16.840.1.972381.3.579.2.462 Unknown [id number] 2.16.840.1.357881.3.579.2.462 Unknown [id number] 2.16.840.1.070315.3.579.2.462 Unknown [id number] 2.16.840.1.044861.3.579.2.462 Unknown [id number] 2.16.840.1.257423.3.579.2.462 Unknown [id number] 2.16.840.1.969494.3.579.2.462 Unknown [id number] 2.16.840.1.053928.3.579.2.462 Unknown [id number] 2.16.840.1.103911.3.579.2.462 Unknown [id number] 2.16.840.1.048262.3.579.2.462 Unknown [id number] 2.16.840.1.308516.3.579.2.462 Unknown [id number] 2.16.840.1.729667.3.579.2.462 Unknown [id number] 2.16.840.1.214332.3.579.2.462 Unknown [id number] 2.16.840.1.978045.3.579.2.462 Unknown [id number] 2.16.840.1.613177.3.579.2.462 Unknown [id number] 2.16.840.1.865893.3.579.2.462 Unknown [id number] 2.16.840.1.042199.3.579.2.462 Unknown [id number] 2.16.840.1.703544.3.579.2.462 Unknown [id number] 2.16.840.1.149625.3.579.2.462 Unknown [id number] 2.16.840.1.020388.3.579.2.462 Social History Date Type Detail Facility Start: 05-09-2016 End: 02-16-2024 Tobacco smoking status [facility] Smokes tobacco daily [facility] Start: 05-09-2016 End: 02-16-2024 Tobacco use and exposure Smokeless tobacco non-user [facility] Work Phone: Start: 07-18-2021 End: 02-04-2025 Alcohol intake Current non-drinker of alcohol (finding) [facility] Work Phone: Start: 1980 Sex Assigned At Not on file S [employer] Work Phone: Start: 02-07-2021 End: 05-25-2022 Exposure to SARS-CoV-2 (event) Not sure [facility] Work Phone: History of tobacco use Cigarette Smoker [facility] Work Phone: Start: 01-08-2020 End: [...] containing alcohol? Never [facility] Start: 05-28-2012 End: 04-25-2025 How many standard drinks containing alcohol do you have on a [...] much [facility] (I/We) worried linda er (my/our) food would run out before (I/we) got money to buy more. Never true [facility] At any time in the p ast 12 months, were you homeless or living in usp [including now]? No [facility] Start: 06-28-2019 End: 04-29-2024 Tobacco smoking status Heavy tobacco smoker (finding) [facility] Sex Assigned At [facility] (I/We) worried linda schulz (my/our) food would run out before (I/we) got money to buy more. Often true [facility] The food that (I/we) bought just didn't last, and (I/we) didn't have money to get more. Sometimes true [facility] Start: 07-07-2015 Sex Female (finding) [facility] Start: 03-07-2025 Alcoholic beverage intake Ex-drinker (finding) [facility] Medical Equipment Procedure Code Equipment Code Equipment Origin al Text Equipment Identifier Dates Kit Fiberloop 3. 2mm Suture Drill Pin Needle Shoehorn Cannula Proximal - [id number] Start: 08-29-2023 Stayton Pushlock 2.9mm Short Biocomposite 12.5mm Suture Cannulated Eyelet - [id number] Start: 08-29-2023 [place] Pushlock 2.9mm Short Biocomposite 12.5mm Suture Cannulated Eyelet - [id number] Start: 08-29-2023 [place] Pushlock 2.9mm Short Biocomposite 12.5mm Suture Cannulated Eyelet - [id number] Start: 10-12-2024 Stay[place] Pushlock 2.9mm Short Biocomposite 12.5mm Suture Cannulated Eyelet - [id number] Start: 10-12-2024 Stayton Pushlock 2.9mm Short Biocomposite 12.5mm Suture Cannulated Eyelet - [id number] Start: 10-12-2024 Functional Status Date Assessment Result Facility 04-25-2025 Functional Status [facility] 04-25-2025 [facility] 04-25-2025 Functional Status Adequate room lighting, Bed in low position, Call device within reach [facility] 04-25-2025 Functional Status Standard Safet y ID band on, Call device within reach, Bed in low position, Wheels locked [facility] 04-24-2025 Functional Status Assistive Device None [facility] 04-23-2025 Functional Status [facility] 04-23-2025 [facility] 04-29-2024 Functional Status Standard Safet y ID band on, Call device within reach, Bed in low position, Wheels locked, Bedside Cart Locked, Visitor at bedside, Safety level maintained [facility] 02-10-2024 Functional Status Independent [facility] 02-10-2024 Functional Status ID band on, Allergy Band on, Call device within reach, Bed in low position, Wheels locked [facility] 09-26-2023 Functional Status Independent [facility] 09-26-2023 Functional Status Independent [facility] 03-15-2023 Functional Status Standard Safet y ID band on, Call device within reach, Bed in low position, Wheels locked, Upper/Half-Length side-rails up [facility] 01-25-2023 Functional Status ID band on [facility] 10-17-2014 Are you deaf, or [...] or climbing stairs No 10/17/2014 1:21 PM Sharmin Aguayo LPN [...] Center Mental Status Date Assessment Result Facility 04-25-2025 Mental Status Orientation Oriented x 4 [facility] 04-25-2025 Mental Status [facility] 04-23-2025 Mental Status Oriented x 4 [facility] 04-29-2024 Mental Status Orientation Oriented x 4 [facility] 04-29-2024 Mental Status [facility] 02-10-2024 Mental Status Orientation Oriented x 4 [facility] 02-10-2024 Mental Status [facility] 09-26-2023 Mental Status Orientation Oriented x 4 [facility] 09-26-2023 Mental Status [facility] 01-25-2023 Mental Status Oriented x 4 [facility] 10-17-2014 Because of a physica l, mental, or emotional condition, do you have serious difficulty concentrating, remembering, or making decisions Yes 10/17/2014 1:21 PM EDT Sharmin Monge LPN Yes [facility] Clinical Notes 06-15-2016 to 05-07-2025 Note Date & Type Note Facility 05-07-2025 Note [facility] 04-25-2025 Hospital Discharge instructions Patient Education 04/25/2025 18:48:02 Abdominal Pain Abdominal Pain Abdominal pain is [...] find the cause of your pain. If needed, you will have tests. Belly pain has many [...] foods again, start with small amounts of rhxg-uv-tvcbjn, low-fat foods. These include apple sauce, toast, or [...] increase stomach acid. Don't use aspirin or fmnc-ubr-eplvkrp pain and fever medicines, if possible. This includes nonsteroidal anti-inflammatory drugs (NSAIDs). Lose excess weight. Finish eating at least 2 hours before you go to bed or lie down. Raise the head of your bed. [id number] [employer] [place] [address]. All rights reserved. This information is not intended as a substitute for professional medical care. Always follow your healthcare professional's instructions. Follow Up Care 04/25/2025 16:34:22 With:Follow up with primary care provider Address:Unknown When:2-4 days [facility] 04-25-2025 Note Discharge Instructions Thank you for allowing [facility] to assist you with your healthcare needs. The following is important discharge information regarding your hospital visit. Diagnosis from Today's Visit Abdominal pain in female What to Do Next Instructions from Your Care Team No qualifying data available. Post Acute Orders No qualifying data available. You Need to Schedule the Following Appointments Follow Up with Follow up with primary care provider When:Within 2-4 days Allergies LaMICtal Pamprin Maximum Pain Vicodin Itching codeine Medications Please ask your primary doctor or pharmacist before taking any other medication not listed, including over the counter drugs, herbal medications, vitamins and or supplements as they may interact with your home medications. What How Much When Instructions Last Dose Unchanged gabapentin (gabapentin 300 mg oral capsule) 1 cap by mouth Three (3) times a day Unchanged metroNIDAZOLE (metroNIDAZOLE 500 mg oral tablet) Unchanged naproxen (naproxen 500 mg oral tablet) Unchanged traZODone by mouth Daily at bedtime Please take this list to your next doctor s visit. Bring all medications you take, including over the counter medications, herbals and other supplements with you to your doctor s visit. Patients and families are reminded to discard old lists and to update any records with all medication providers or retail pharmacies. Education Materials Abdominal Pain Abdominal pain is pain in [...] find the cause of your pain. If needed, you will have tests. Belly pain has many [...] foods again, start with small amounts of enis-bv-sveifc, low-fat foods. These include apple sauce, toast, or [...] increase stomach acid. Don't use aspirin or ebbk-ast-sblinmy pain and fever medicines, if possible. This includes nonsteroidal anti-inflammatory drugs (NSAIDs). Lose excess weight. Finish eating at least 2 hours before you go to bed or lie down. Raise the head of your bed. [phone] [employer]. [address] [place] [address], [place] [address]. All rights reserved. This information is not intended as a substitute for professional medical care. Always follow your healthcare professional's instructions. Additional Information VACCINATE! IT SAVES LIVES! Members of the community who have not yet received the COVID-19 vaccine and would like to receive it can visit one of [facility] vaccine clinics. There are many vaccine clinic locations within the [facility] [address] [facility]. For locations and available times, please visit www.[email or web address].[place]. gov/. It is important to note that some COVID mobile vaccine clinics are held outdoors and may be canceled in rainy or stormy conditions. To learn more about pediatric vaccinations (ages 5-11), we invite you to visit the [facility] webpage. https://www.[facility].org/p ages/8940-Suttu-Tjcparilayl-Freq fdicus-Wxjik-Hrrxkubru.html To learn more about the COVID-19 vaccine, we invite you to visit the CDC website for a list of frequently asked questions. https://www.cdc.gov/coronavirus/ 2019-ncov/vaccines/faq.html [facility] [employer] Patient Portal Access Instructions: Stay connected with your healthcare team and access your personal medical information anytime with the [employer] Patient Portal. If you would like a full copy of your medical records please contact the [facility] Medical Records Department Tuesday through Tuesday between 8a.m. and 4:30p.m. Please follow the directions below to access the portal: 1.Access the email account you provided upon registration to the [facility].2.Look for an invitation email from [facility].3.Open the email and access the invitation link: Accept [facility]itation to [facility]4.Fill in the required moore to create your account. To access your account, visit [facility] or scan the [employer] code above. Click the blue button labeled Access Patient Portal and then log in with the username and password that you created in the steps above. You can then view a summary of results, a summary of your visits, and the ability to download your summaries to your computer or send the information securely to a physician. Remember that your healthcare information is confidential, so carefully consider who you will allow to register on the [employer] Patient Portal for access to your information. You can also access the [employer] Patient Portal on the [employer]. Simply click on Health Records under Health Data and then click on the [employer] logo. HOW TO SAFELY DISPOSE OF PRESCRIPTION [...] Call your local pharmacy or go to http://bit.ly/0Y1Oe0f to find one close to you.3.Make use of household items: Use cat litter or old coffee grounds to dispose medications if other options are not available. Mix your drugs with these household products, seal them in an airtight container and throw it into the garbage. Call [facility]: [phone] to be sure your drugs can be [...] a CHART COPY Signatures Patient Education Materials Abdominal Pain Medication Leaflets My discharge plan and instructions have been reviewed and explained to me and IADAM JENNIFER L understand my current condition and have read and understand these discharge instructions. I have received a written copy of the plan/instructions. If I have questions, I am aware that I should contact my doctor. 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 All images are recorded and archived. FINDINGS: Transabdominal sonographic examination of the pelvis was performed. The patient unable to tolerate transvaginal examination. The uterus is surgically absent Right ovary: The right ovary measures 5.1 x 3.7 x 4.1 cm. There is positive arterial and venous Doppler flow and waveforms to the right ovary. Normal follicular changes are noted with a dominant follicle measuring 2.5 cm. No adnexal mass is seen. Left ovary: The left ovary is surgically absent. Free fluid is present in the right aspect of the pelvis which was also present on same day CT. IMPRESSION: No acute sonographic abnormality. Free fluid in the right aspect of the pelvis could be physiologic or postoperative in nature. The uterus and left ovary are surgically absent. Preliminary Report was Dictated by a Resident I have personally reviewed the images of this examination and agree with the resident's findings and interpretation. Ramakrishna Vasquez M.D. Interpreted by: Ramakrishna Vasquez Preliminary Report By: Werner Flores Electronically signed By Ramakrishna Vasquez Dictated Date: 04/25/2025 6:40:20 PM Prelim Date: 04/25/2025 6:45:24 PM Sign Date: 04/25/2025 8:53:41 PM Ordering Provider: JUAN MIGUEL MANLEY [facility]10-30-2025 Note* Exam Date Time Procedure Performing Provider Status 04/25/25 5:[address] Abd/Pelvis w/ IV Contrast Only MARTA JENSEN MD; Auth (Verified) [id number] ORIGINAL EXAMINATION: CT OF THE ABDOMEN AND PELVIS WITH CONTRAST 04/25/2025 5:38 pm TECHNIQUE: CT of the abdomen and pelvis was performed with the administration of intravenous contrast. Multiplanar reformatted images are provided for review. Automated exposure control, iterative reconstruction, and/or weight based adjustment of the mA/kV was utilized to reduce the radiation dose to as low as reasonably achievable. COMPARISON: February 28, 2025 HISTORY: ORDERING SYSTEM PROVIDED HISTORY: Reason for Exam: Abdominal pain, acute, nonlocalized FINDINGS: Lower Chest: Lung bases are unremarkable. Hepatobiliary: There is no focal hepatic mass. The gallbladder is unremarkable. There is no intrahepatic or extrahepatic biliary ductal dilatation. Spleen: The spleen is unremarkable. Pancreas: The pancreas is unremarkable. Adrenal glands: The adrenal glands are unremarkable. Kidneys and Urinary Tract: There is no evidence of urinary tract calculus. No hydronephrosis. Urinary bladder is unremarkable. Uterus is absent. There is a large right ovary containing multiple cystic lesions, including a 3.3 cm cystic lesion (301: 92). Peritoneum/Retroperitoneum: The peritoneum and retroperitoneum are unremarkable. There is a moderate volume of free pelvic fluid, particularly on the right. Left ovary is not definitively identified.. GI/Bowel: There is no bowel wall thickening or obstruction. The appendix is identified and is unremarkable. Lymph nodes: Lymph nodes are unremarkable. Vasculature: Aorta and iliac vessels are normal in caliber. Bones: No aggressive osseous lesion. Soft tissues: The other soft tissues including abdominopelvic wall are unremarkable. IMPRESSION: 1. Enlarged right ovary containing multiple cystic lesions, measuring up to 3.3 cm, which may be within normal limits for patient of this age. Consider further evaluation with pelvic ultrasound as clinically indicated. 2. Moderate volume of free pelvic fluid, particularly on the right. Interpreted by: Marta Jensen Preliminary Report By: Marta Jensen Electronically signed By Marta Jensen Dictated Date: 04/25/2025 5:42:32 PM Prelim Date: 04/25/2025 6:02:38 PM Sign Date: 04/25/2025 6:02:38 PM Ordering Provider: JUAN MIGUEL MANLEY RP [facility] Discharge instructions Patient Education 04/23/2025 23:53:06 Abdominal Pain Abdominal Pain Abdominal pain is [...] foods again, start with small amounts of pfgm-eb-lwgmnx, low- fat foods. These include apple sauce, [...] increase stomach acid. Don't use aspirin or fyme-kto-qghndes pain and fever medicines, if possible. This includes nonsteroidal anti-inflammatory drugs (NSAIDs). Lose excess weight. Finish eating at least 2 hours before you go to bed or lie down. Raise the head of your bed. 7509-6625 [employer]. [address] [place] [address], [place] [address]. All rights reserved. This information is not intended as a substitute for professional medical care. Always follow yourhealthcare professional's instructions. Follow Up Care 04/23/2025 23:05:45 With:Go to emergency room if symptoms worsen Address:Unknown When:2-4 days With:MAILE NORMAN MD Address: [facility] [place] [address]- When:2-4 days [facility] 10-29-2025 Note Discharge Instructions Thank you for allowing [facility] to assist you with your healthcare needs. The following is importantdischarge information regarding your hospital visit. Diagnosis from Today's Visit Post-operative pain What to Do Next Instructions from Your Care Team please call dryer and washer mechanic in the morning for close outpatient follow up regarding your symptoms. return to the ED for any acute worsening symptoms or concerns. No qualifying data available. Post Acute Orders No qualifying data available. You Need to Schedule the Following Appointments Follow Up with Go to emergency room if symptoms worsen When:Within 2-4 days Follow Up with MAILE NORMAN MD When:Within 2-4 days Where:[address] [place] [address]- Allergies LaMICtal Pamprin Maximum Pain Vicodin Itching [...] medication providers or retail pharmacies. Education Materials Abdominal Pain Abdominal pain is pain in [...] foods again, start with small amounts of yowp-sc-fhyttv, low- fat foods. These include apple sauce, [...] increase stomach acid. Don't use aspirin or bvoy-gvg-pkzdbfv pain and fever medicines, if possible. This includes nonsteroidal anti-inflammatory drugs (NSAIDs). Lose excess weight. Finish eating at least 2 hours before you go to bed or lie down. Raise the head of your bed. 0440-5530 [employer] [address] [place] [address], [place] [address]. All rights reserved. This information is not intended as a substitute for professional medical care. Always follow yourhealthcare professional's instructions. Additional Information VACCINATE! IT SAVES LIVES! Members of the community who have not yet received the COVID-19 vaccine and would like to receive it can visit one of [facility] vaccine clinics. There are many vaccine clinic locations within the [facility] [address] [facility]. For locations and available times, please visit www.[email or web address].[place].gov/. It is important to note that some COVID mobile vaccine clinics are held outdoors and may be canceled in rainy or stormy conditions. To learn more about pediatric vaccinations (ages 5-11), we invite you to visit the [facility] webpage. https://www.[facility].org/pages/4878-Bgakz-Dedvlozgyiq-Fyediqhasv-Rmtaa-Cft stions.htmlTo learn more about the COVID-19 vaccine, we invite you to visit the CDC website for a list of frequently asked questions. https://www.cdc.gov/coronavirus/2019-ncov/vaccines/faq.html [facility] [employer] Patient Portal Access Instructions: Stay connected with your healthcare team and access your personal medical information anytime with the [employer] Patient Portal. If you would like a full copy of your medical records please contact the [facility] Medical Records Department Tuesday through Tuesday between 8a.m. and 4:30p.m. Please follow the directions below to access the portal: 1.Access the email account you provided upon registration to the hospital.2.Look for an invitation email from [facility].3.Open the email and access the invitation link: Accept Invitation to [employer]4.Fill in the required moore to create your account. To access your account, visit F[facility] or scan the QR code above. Click the [facility] Patient Portal and then log in with the username and password that you created in the steps above. You can then view a summary of results, a summary of your visits, and the ability to download your summaries to your computer or send the information securely to a physician. Re member that your healthcare information is confidential, so carefully consider who you will allow to register on the [employer] Patient Portal for access to your information. You can also access the [employer] Patient Portal on the [employer]. Simply click on Health Records under Health Data and then click on the [employer]Cam logo. HOW TO SAFELY DISPOSE OF PRESCRIPTION [...] Call your local pharmacy or go to http://Awesome.me/6W9Wu9r to find one close to you.3.Make use of household items: Use cat litter or old coffee grounds to dispose medications if other options arenot available. Mix your drugs with these household products, seal them in an airtight container andthrow it into the garbage. Call [facility]: [phone] to be sure your drugs can be [...] a CHART COPY Signatures Patient Education Materials Abdominal Pain Medication Leaflets My discharge plan and instructions have been reviewed and explained to me and I,PAT MEDINA understand my current condition and have read and understand these discharge instructions. I have received a written copy of the plan/instructions. If I have questions, I am aware that I should contact my doctor. Patient/Car Repairer Pullman Signature: Date/Time: Relationship to Patient: Witness Name/Signature: Date/Time: [facility]10-27-2025 [facility] 04-18-2025 [facility]10[facility]09[facility] Hospital Discharge instructions Patient Education 03/22/2025 21:55:03 Understanding the Pain Response Understanding the Pain Response Your pain is important. It can slow healing and keep you from being active. You may have acute or chronic pain. Both types of pain respond to treatment. Work with your healthcare professional. Together you can find relief. Types of pain Acute pain is caused by a health problem or injury. The pain usually goes away when its cause is treated. You may have pain: From an illness or injury that needs emergency care After an operation, such as heart surgery During and after the of your baby Chronic pain lasts 3 to 6 months or more. It can be caused by a health problem or injury, like arthritis or a shoulder strain. Chronic pain can also exist without a clear cause. Your perception of pain Pain is a complex phenomenon that involves many of the chemicals found naturally in the spinal cordand brain. All pain signals travel to the brain. The brain sends back signals to protect the body. The brain also makes its own painkillers (endorphins). These can help reduce the pain. 1. Pain starts in 1 or more parts of the body. In some cases, the site of the pain is far from its source. 2. Pain signals move through nerves and up the spinal cord. 3. The brain reads the signals as pain. Natural painkillers are released. 4. The feeling of pain can be reduced in this way. 0561-1603 [employer] [address] [place] [address]. All rights reserved. This information is not intended as a substitute for professional medical care. Always follow yourhealthcare professional's instructions. Follow Up Care 03/22/2025 21:10:15 With:MAILE NORMAN MD Address: [address] [place], [place] [id number]- When:2-4 days [facility] 09-26-2025 Emergency department Discharge summary Discharge Instructions Thank you for allowing [facility] to assist you with your healthcare needs. The following is importantdischarge information regarding your hospital visit. Diagnosis from Today's Visit Post-op pain What to Do Next Instructions from Your Care Team No qualifying data available. Post Acute Orders No qualifying data available. You Need to Schedule the Following Appointments Follow Up with MAILE NORMAN MD When:Within 2-4 days Where:[address] [place], [place] [id number]- Allergies LaMICtal Pamprin Maximum Pain Vicodin Itching [...] medication providers or retail pharmacies. Education Materials Understanding the Pain Response Your pain is important. It can slow healing and keep you from being active. You may have acute or chronic pain. Both types of pain respond to treatment. Work with your healthcare professional. Together you can find relief. Types of pain Acute pain is caused by a health problem or injury. The pain usually goes away when its cause is treated. You may have pain: From an illness or injury that needs emergency care After an operation, such as heart surgery During and after the of your baby Chronic pain lasts 3 to 6 months or more. It can be caused by a health problem or injury, like arthritis or a shoulder strain. Chronic pain can also exist without a clear cause. Your perception of pain Pain is a complex phenomenon that involves many of the chemicals found naturally in the spinal cordand brain. All pain signals travel to the brain. The brain sends back signals to protect the body. The brain also makes its own painkillers (endorphins). These can help reduce the pain. 1. Pain starts in 1 or more parts of the body. In some cases, the site of the pain is far from its source. 2. Pain signals move through nerves and up the spinal cord. 3. The brain reads the signals as pain. Natural painkillers are released. 4. The feeling of pain can be reduced in this way. 5437-9600 [employer] [address] [place] [address], [place] [address]. All rights reserved. This information is not intended as a substitute for professional medical care. Always follow yourhealthcare professional's instructions. Additional Information VACCINATE! IT SAVES LIVES! Members of the community who have not yet received the COVID-19 vaccine and would like to receive it can visit one of [facility] vaccine clinics. There are many vaccine clinic locations within the [facility]. For locations and available times, please visit www.[email or web address].[place].gov/. It is important to note that some COVID mobile vaccine clinics are held outdoors and may be canceled in rainy or stormy conditions. To learn more about pediatric vaccinations (ages 5-11), we invite you to visit the [facility] webpage. https://www.[facility].org/pages/3646-Rtefp-Dnxsipusrqo-Fealnsesuo-Nhxaa-Noe stions.htmlTo learn more about the COVID-19 vaccine, we invite you to visit the CDC website for a list of frequently asked questions. https://www.cdc.gov/coronavirus/2019-ncov/vaccines/faq.html [facility] [employer] Patient Portal Access Instructions: Stay connected with your healthcare team and access your personal medical information anytime with the [employer] Patient Portal. If you would like a full copy of your medical records please contact the [facility] Medical Records Department Tuesday through Tuesday between 8a.m. and 4:30p.m. Please follow the directions below to access the portal: 1.Access the email account you provided upon registration to the hospital.2.Look for an invitation email from [facility].3.Open the email and access the invitation link: Accept Invitation to [employer]4.Fill in the required moore to create your account. To access your account, visit [email or web address] or scan the QR code above. Click the [facility] Patient Portal and then log in with the username and password that you created in the steps above. You can then view a summary of results, a summary of your visits, and the ability to download your summaries to your computer or send the information securely to a physician. Re member that your healthcare information is confidential, so carefully consider who you will allow to register on the [employer] Patient Portal for access to your information. You can also access the [employer] Patient Portal on the ClickSquared. Simply click on Health Records under Health Data and then click on the [employer]Cam logo. HOW TO SAFELY DISPOSE OF PRESCRIPTION [...] Call your local pharmacy or go to [email or web address] [email or web address]/[email or web address] to find one close to you.3.Make use of household items: Use cat litter or old coffee grounds to dispose medications if other options arenot available. Mix your drugs with these household products, seal them in an airtight container andthrow it into the garbage. Call [facility]: [phone] to be sure your drugs can be [...] a CHART COPY Signatures Patient Education Materials Understanding the Pain Response Medication Leaflets My discharge plan and instructions have been reviewed and explained to me and IADAM JENNIFER L understand my current condition and have read and understand these discharge instructions. I have received a written copy of the plan/instructions. If I have questions, I am aware that I should contact my doctor. Patient/Car Repairer Pullman Signature: Date/Time: Relationship to Patient: Witness Name/Signature: Date/Time: [facility]09[facility] Medical Records Department [address] [place] [id number] History Physical Exam 03/07/25 1349 MR#: [id number] Acct: [id number] Name: PAT MEDINA Rep #: [id number] : 1980 45 From: Stephy Simpson MD PCP: Dr. Maile Norman MD Status:[facility] Location: [place] [address] History and Physical Date of Admission: 03/15/25 [...] pain, unspecified site?Abnormal glandular Papanicolaou smear of ubknzw9704/08/2006???Abn. Pap smear (cervix)???Allergic rhinitis, cause yjilaclinxh78/10/2006???Anxiety?Congestive heart failure (HCC)?during . 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 No issues in 16 years???Depression?Diarrhea?Irritable bowel syndrome?Mental disorders complicating , childbirth, or the puerperium? DEPRESSION???Migraine, unspecified, with intractable migraine, so stated, without mention of status migrainosus?Otherand unspecified ovarian cyst?PMH - PAST MEDICAL HISTORY OF?Narcotic dependence requiring rehab in 2006 ???Temporomandibular joint disorders, unspecified? PAST SURGICAL HISTORY PAST SURGICAL HISTORYProcedureLateralityDate???ADENOIDECTOMY PRIMARY BREAST; RVCJEMMGBBZygav72/14/2022???Fibroadenomatous changes. Focal duct ectasia.???COLPOSCOPY CERVIX UPPER/ADJACENT VAGINA?Colposcopy???DILATION CURETTAGE DX /THER NONOBSTETRIC???06/27/2000???Dilation curettage,TAB???ESOPHAGOGASTRODUODENOSCOPY TRANSORAL DIAGNOSTIC???11/01/2011???EGD [facility] inpt H-pylori negative???HYSTEROSCOPY ENDOMETRIAL ABLATION?[facility]???LIG/TRNSXJ FLP TUBE ABDL/VAG APPR UNI/BI???04/19/2006???Tubal ligation???MYRINGOTOMY ASPIR /EUSTACHIAN TUBE NFLTJ ANES???06/27/1994??? Myringotomy/tubes???OOPHORECTOMY PARTIAL/TOTAL UNI/BI?left???REPAIR ROTATOR CUFF,[id number]???TONSILLECTOMY PRIMARY/SECONDARY ? CURRENT MEDICATIONS Current Outpatient MedicationsMedicationSigDispenseRefill???ALPRAZolam (XANAX) 2 mg tabletTake 1 tablet by [...] for this visit. ? ALLERGIES: Pamprin Multi-Symptom [Uzsunspuvszzp-Ppcwspni-Jyviynp], Buspar [Buspirone], Escitalopram, Codeine, Lamotrigine, Nitrofurantoin Macrocrystal, [...] HISTORY FAMILY HISTORY ProblemRelationAge of Onset???PsychiatryMother? DEPRESSION ???HypertensionFather?Cervical CancerMaternal Grandmother?HypertensionMaternal Grandmother?CancerMaternal Grandfather? BLADDER???HeartMaternal Grandfather? DE EMPHYSEMA ? REVIEW OF SYMPTOMS: GENERAL: denies [...] 96%. ??? GENERAL: The patient is well nourish (more content not included)...[facility] History of Present illness Narrative* Stephy Simpson MD - 03/07/2025 1:33 PM EDT Pat Medina is a 45 year old female who presents for problem visit for f/u RLQ pain. HPI: 45 YOF notes she had increased pain and went to ED after last appointment. No fever or chills.States she was told she had an ovarian cyst and was given rx for pain and sent home. Continues to have intermittent pain. OB History Gravida5 Para2 Term2 Preterm0 AB3 Living2 SAB2 IAB1 Ectopic0 Multiple0 Live Births2 Chemical Operations Specialist History LMP: 05/07/2009, Ablation Age at Menarche: Age at First : Age at Menopause: Chemical Operations Specialist History Comments: Sexual Activity: Yes; Male Contraception: Surgical, Tubal Ligation PAST MEDICAL HISTORY Diagnosis Date Abdominal pain, unspecified site Abnormal glandular Papanicolaou smear of cervix 04/08/2006 Abn. 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 No issues in [...] EGD [facility] inpt H-pylori negative HYSTEROSCOPY ENDOMETRIAL ABLATION [facility] LIG/TRNSXJ FLP TUBE ABDL/VAG APPR UNI/BI 04/19/2006 Tubal ligation MYRINGOTOMY ASPIR&/EUSTACHIAN TUBE NFLTJ ANES 06/27/1994 Myringotomy/tubes OOPHORECTOMY PARTIAL/TOTAL UNI/BI left REPAIR ROTATOR CUFF,ACUTE Right 2023 TONSILLECTOMY PRIMARY/SECONDARY <AGE 12 06/27/1987 Tonsillectomy FAMILY HISTORY Problem Relation Age of Onset Psychiatry Mother DEPRESSION Hypertension Father Cervical Cancer Maternal Grandmother Hypertension Maternal Grandmother Cancer Maternal Grandfather BLADDER Heart Maternal Grandfather DE & EMPHYSEMA SOCIAL HISTORY[1] Current Outpatient Medications [...] discussed with the Patient or Patient's Authorized Car Repairer Pullman. As applicable, any other physician, advance practice provider, medical student, or other health professional student that will be observing or involved in the sensitive examination for educational or training purposes was discussed with the Patient or Authorized Car Repairer Pullman. The Patient or Authorized Car Repairer Pullman has agreed to proceed with the sensitive [...] flare after surgery. D/w her short and manager intermediate risks of surgery. Stephy Simpson MD [1] Social History Tobacco Use Smoking status: Every Day Current packs/day: 1.00 Average packs/day: 1 pack/day for 30.0 years (30.0 ttl pk-yrs) Types: Cigarettes Smokeless tobacco: Never Vaping Use Vaping status: Never Used Substance Use Topics Alcohol use: Not Currently Drug use: Yes Frequency: 7.0 times per week Types: [facility] encounter Note * Telephone Encounter - Violeta Howard RN - 03/07/2025 10:05 AM EDT Patient calls to report that she has misplaced her trazodone prescription and requests new refill be sent to pharmacy. Patient has refills at pharmacy. Notified she could contact pharmacy and request refill but if it is not time to fill insurance won't cover it and she would have to pay out of pocket. Patient verbalized understanding and will contact [facility]. Violeta Howard RN [facility]09-11-2025 Miscellaneous Notes* Telephone Encounter - Violeta Howard RN - 03/07/2025 10:05 AM EDT Patient calls to report that she has misplaced her trazodone prescription and requests new refill be sent to pharmacy. Patient has refills at pharmacy. Notified she could contact pharmacy and request refill but if it is not time to fill insurance won't cover it and she would have to pay out of pocket. Patient verbalized understanding and will contact [facility] [place]. Violeta Howard RN documented [facility] History and physical note * Stephy Simpson MD - 03/07/2025 9:30 AM EDT Pre-Op History and Physical HPI: The patient [...] Anxiety Congestive heart failure (HCC) during . 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 No issues in [...] EGD [facility] inpt H-pylori negative HYSTEROSCOPY ENDOMETRIAL ABLATION [facility] LIG/TRNSXJ FLP TUBE ABDL/VAG APPR UNI/BI 04/19/2006 [...] medications for this visit. ALLERGIES: Pamprin Multi-Symptom [Dgteihbmgaunt-Nvotegxm-Aqfvfjv], Buspar [Buspirone], Escitalopram, Codeine, Lamotrigine, Nitrofurantoin Macrocrystal, and Promethazine-Phenylephrine PERSONAL HISTORY: SOCIAL HISTORY[1] FAMILY HISTORY: FAMILY HISTORY Problem Relation Age of Onset Psychiatry Mother DEPRESSION Hypertension Father Cervical Cancer Maternal Grandmother Hypertension Maternal Grandmother Cancer Maternal Grandfather BLADDER Heart Maternal Grandfather DE & EMPHYSEMA REVIEW OF SYMPTOMS: GENERAL: denies [...] to proceed. Consent was signed. I reviewed withher postop instructions and expectations. I have reviewed [...] Frequency: 7.0 times per week Types: Marijuana [facility]09-11-2025 History and physical note* Stephy Simpson MD - 03/07/2025 9:30 AM EDT Pre-Op History and Physical HPI: The patient [...] Anxiety Congestive heart failure (HCC) during . 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 No issues in [...] EGD [facility] inpt H-pylori negative HYSTEROSCOPY ENDOMETRIAL ABLATION [facility] LIG/TRNSXJ FLP TUBE ABDL/VAG APPR UNI/BI 04/19/2006 [...] medications for this visit. ALLERGIES: Pamprin Multi-Symptom [Txjjzoykfuxaq-Zjmrqxtr-Mnxgpdf], Buspar [Buspirone], Escitalopram, Codeine, Lamotrigine, Nitrofurantoin Macrocrystal, and Promethazine-Phenylephrine PERSONAL HISTORY: SOCIAL HISTORY[1] FAMILY HISTORY: FAMILY HISTORY Problem Relation Age of Onset Psychiatry Mother DEPRESSION Hypertension Father Cervical Cancer Maternal Grandmother Hypertension Maternal Grandmother Cancer Maternal Grandfather BLADDER Heart Maternal Grandfather DE & EMPHYSEMA REVIEW OF SYMPTOMS: GENERAL: denies [...] to proceed. Consent was signed. I reviewed withher postop instructions and expectations. I have reviewed [...] per week Types: Marijuana documented in this encounterC[facility] Hospital Discharge instructions Patient Education 02/28/2025 15:01:28 [...] pain, your healthcare provider may recommend using frip-lyu-ozastqu pain medicine. If needed, your provide may [...] Weakness, dizziness, or fainting Abnormal vaginal bleeding [phone] [employer]. [address] [place] [address]. All rights reserved. This information is not intended as a substitute for professional medical care. Always follow yourhealthcare professional's instructions. Follow Up Care 02/28/2025 13:01:42 With:MAILE NORMAN MD Address: [address] [place] [address]- When:2-4 days [facility] 09-04-2025 Note Discharge Instructions Thank you for allowing [facility] to assist you with your healthcare needs. The following is importantdischarge information regarding your hospital visit. Diagnosis from Today's Visit Ovarian cyst, right What to Do Next Instructions from Your Care Team No qualifying data available. Post Acute Orders No qualifying data available. You Need to Schedule the Following Appointments Follow Up with MAILE NORMAN MD When:Within 2-4 days Where:[address], [place] [id number]- Allergies LaMICtal Pamprin Maximum Pain Vicodin Itching [...] pain, your healthcare provider may recommend using hkau-yoa-wgbuhgp pain medicine. If needed, your provide may [...] Weakness, dizziness, or fainting Abnormal vaginal bleeding [phone] [employer] [address] [place] [address], [place] [address]. All rights reserved. This information is not intended as a substitute for professional medical care. Always follow yourhealthcare professional's instructions. Additional Information VACCINATE! IT SAVES LIVES! Members of the community who have not yet received the COVID-19 vaccine and would like to receive it can visit one of [facility] vaccine clinics. There are many vaccine clinic locations within the [facility]. For locations and available times, please visit www.[email or web address]/. It is important to note that some COVID mobile vaccine clinics are held outdoors and may be canceled in rainy or stormy conditions. To learn more about pediatric vaccinations (ages 5-11), we invite you to visit the [facility] webpage. https://www.E Inks.org/pages/5017-Mkvqh-Uvpqxligvjf-Ihmgsmcxvk-Trmaj-Vdw stions.htmlTo learn more about the COVID-19 vaccine, we invite you to visit the CDC website for a list of frequently asked questions. https://www.cdc.gov/coronavirus/2019-ncov/vaccines/faq.html [facility] [employer] Patient Portal Access Instructions: Stay connected with your healthcare team and access your personal medical information anytime with the [employer] Patient Portal. If you would like a full copy of your medical records please contact the [facility] Medical Records Department Tuesday through Tuesday between 8a.m. and 4:30p.m. Please follow the directions below to access the portal: 1.Access the email account you provided upon registration to the hospital.2.Look for an invitation email from [facility].3.Open the email and access the invitation link: Accept Invitation to [employer]4.Fill in the required moore to create your account. Sign into [email or web address] MD with your username and password that you [...] you will allow to register on the [employer] Patient Portal for access to your information. You can also access the [employer] Patient Portal on the [employer] lala. Simply click on Health Records under F[employer]avor and then click on the Nicho logo. [...] Call your local pharmacy or go to [email or web address] to find one close to you.3.Make use of household items: Use cat litter or old coffee grounds to dispose medications if other options arenot available. Mix your drugs with these household products, seal them in an airtight container andthrow it into the garbage. Call [facility]: [phone] to be sure your drugs can be [...] aware that I should contact my doctor. Patient/Car Repairer Pullman Signature: Date/Time: Relationship to Patient: Witness Name/Signature: Date/Time: [facility]09-04-2025 Telephone encounter Note* Telephone Encounter - Maile Norman MD - 02/28/2025 2:58 PM EDT The following approved medication requests have been transmitted electronically. Requested Prescriptions Signed Prescriptions Disp Refills ALPRAZolam (XANAX) 2 mg tablet 28 tablet 0 Sig: Take 1 tablet by mouth two times a day as needed for anxiety for up to 14 days. Patient shouldstart on March 04, 2025. Authorizing Provider: MAILE NORMAN MD [facility]09-04-[facility]25 Miscellaneous Notes* Telephone Encounter - Maile Norman MD - 02/28/2025 2:58 PM EDT The following approved medication requests have been transmitted electronically. Requested Prescriptions Signed Prescriptions Disp Refills ALPRAZolam (XANAX) 2 mg tablet 28 tablet 0 Sig: Take 1 tablet by mouth two times a day as needed for anxiety for up to 14 days. Patient shouldstart on March 04, 2025. Authorizing Provider: MAILE NORMAN MD * Telephone [...] you. Nell Haynes LPN. documented in this encounterCincinnati [facility]09-04-2025 Note* Exam Date Time Procedure Performing Provider Status 02/28/25 2:[address] Abd/Pelvis w/ IV Contrast Only EDMOND VENTURA MD; Auth (Verified) [id number] ORIGINAL EXAMINATION: CT OF THE ABDOMEN AND [...] Provider: [facility] [place] Telephone encounter Note* Telephone Encounter - Nell [...] you. Nell Haynes LPN. [facility]09-03-[facility] Telephone encounter Note* Telephone Encounter - Camille Gaston MD - 02/27/2025 2:19 PM EDT Nothing signficant on ultrasound findings from [facility]. Labs are stable. She has small free fluid in pelvis which can cause some discomfort until that is reabsorbed. She can take ibuprofen 600mg every 6 hrs and heating pad. Nothing further to do at this time. Will place results in RR mailbox to review as well since she saw her. [facility] Work Phone: [phone] Miscellaneous Notes* Telephone Encounter - Camille Gaston MD - 02/27/2025 2:19 PM EDT Nothing signficant on ultrasound findings from [facility]. Labs are stable. She has small free fluid in pelvis which can cause some discomfort until that is reabsorbed. She can take ibuprofen 600mg every 6 hrs and heating pad. Nothing further to do at this time. Will place results in mailbox to review as well since she saw her. * Telephone Encounter - Marti Guzman RN - 02/27/2025 10:54 AM EDT Patient called into office. Still having phone issues and she was unable to hear me, but I could hear her. After visit with RR yesterday her pelvic pain became severe and she ended up going to [facility] yesterday. She said she had pelvic u/s and was told there were three ovarian cysts present. Care everywhere won't load pelvic u/s result - will attempt to fax records request. Xpreso message sent back to patient for further information too. Marti Guzman RN documented in this encounterCincinnati [facility] Center09-03-2025 Telephone encounter Note * Telephone Encounter - Marti Guzman RN - 02/27/2025 10:54 AM EDT Patient called into office. Still having phone issues and she was unable to hear me, but I could hear her. After visit with RR yesterday her pelvic pain became severe and she ended up going to [facility] yesterday. She said she had pelvic u/s and was told there were three ovarian cysts present. Care everywhere won't load pelvic u/s result - will attempt to fax records request. Xpreso message sent back to patient for further information too. Marti Guzman RN T [facility]09-03-[facility] Hospital Discharge instructions Patient Education 02/26/2025 22:38:44 [...] pain, your healthcare provider may recommend using wzjm-oqk-ccvhluz pain medicine. If needed, your provide may [...] Weakness, dizziness, or fainting Abnormal vaginal bleeding [phone] [employer] [address] [place] [address], [place] [address]. All rights reserved. This information is not [...] below. Home care To help control pain, hdln-wrc-jvvzoln pain medicine may be advised. Take these [...] or belly region Swollen or enlarged belly 5420-5628 [employer] [address] [place] [address], [place] [address]. All rights reserved. This information is not [...] foods again, start with small amounts of fiwx-mw-ayasgm, low- fat foods. These include apple sauce, [...] increase stomach acid. Don't use aspirin or dnom-aji-uwcdxvn pain and fever medicines, if possible. This includes nonsteroidal anti-inflammatory drugs (NSAIDs). Lose excess weight. Finish eating at least 2 hours before you go to bed or lie down. Raise the head of your bed. 0311-0920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 PDMP website checked and validated. All prescriptions have been APPROPRIATELY filled. No suspiciousactivity was identified. 11/21/2024 by Sam Khan APRN.CNP [facility]05-28-2025 Miscellaneous Notes* Telephone Encounter - Sam Khan APRN.LUIS DANIEL - 11/21/2024 12:37 PM EDT PDMP website checked and validated. All prescriptions have been APPROPRIATELY filled. No suspiciousactivity was identified. 11/21/2024 by Sam Khan APRN.LUIS DANIEL * Telephone Encounter - Sujatha Simpson LPN [...] 21, 2024 9:56 AM documented in this encounterCincinnati Va Medical Center05-28-2025 Telephone encounter Note * Telephone Encounter - [...] 21, 2024 9:56 AM [facility]05-23-2025 NoteThe [facility]05-16-2025 Telephone encounter Note* Telephone Encounter - [...] couple weeks or so. [facility]05-16-2025 Miscellaneous Notes* Telephone Encounter - Maile Norman [...] 11/08/2024 10:07 AM EDT [facility]. She voiced concerns of pt [...] pain management. Pt is paying croft per [employer]. Fyi to pcp. documented in this encounterCincinnati Va Medical Center05-16-2025 NoteThe [facility] Hospital05-16-2025 History of Present illness Narrative* Louis [...] & Elbow Surgeon Department of Orthopaedic Surgery [facility] documented in this encounterCinc[facility]05-15-2025 Telephone encounter Note * Telephone Encounter - [...] pain management. Pt is paying croft per [employer]. Fyi to pcp. [facility]05-15-2025 Telephone encounter Note* Telephone Encounter - Violeta [...] provided to support non-pharmacologic treatments tried. The [facility] Policy for Medical Necessity as posted on the [facility] website and [facility] Preferred Drug List criteria were reviewed and per [place] Administrative CodeRule 5160-1-01 (C) and (B), a [...] might be available through the community. Payer: [facility] Electronic appeal: Not supported View History [...] to its destination. To be filled at: [facility] [place] [address] [address] [facility] [phone] [id number] Per [employer]UTCH MECHANIC Sam pt is paying for this out of pocket. [facility]05-15-2025 Miscellaneous Notes* Telephone Encounter - Violeta Aguirre [...] provided to support non-pharmacologic treatments tried. The [facility] Policy for Medical Necessity as posted on the [facility] website and [facility] Preferred Drug List criteria were reviewed and per [place] Administrative CodeRule 5160-1-01 (C) and (B), a [...] might be available through the community. Payer: [facility] Electronic appeal: Not supported View History [...] to its destination. To be filled at: [facility] [place] [address] [address] [facility] - [phone] [id number] Per [employer]UT[employer] MECHAN[employer] Sam pt is paying for this out of pocket. documented in this encounterCincinnati Va Medical Center05-14-2025 Telephone encounter Note * Telephone Encounter - Sujatha Simpson LPN - 11/07/2024 10:19 AM EDT Pharmacy notified and My Chart message sent to patient. [facility]05-14-2025 Miscellaneous Notes* Telephone Encounter - Sujatha Simpson LPN - 11/07/2024 10:19 AM EDT Pharmacy notified and My Chart message sent to patient. * Telephone Encounter - Sam Khan APRN.LUIS [...] - 11/06/2024 4:35 PM EDT Ryley from [facility] Pharmacy calls for medication clarification. Morphine SR 12 hr tablet was received at pharmacy. Medication is written for three times a day. Pharmacy is questioning directions since medication ordered is extended release. Please review and advise, Gertrude Ortiz RN documented in this encounterCincinnati Va Medical Center05-14-2025 Telephone encounter Note * Telephone Encounter - [...] the MED and likely more than needed. [facility]05-14-2025 Telephone encounter Note* Telephone Encounter - Sharon Sutherland RN - 11/07/2024 8:08 AM EDT Pt asking this message be sent high alert. States she needs this medication this morning. [facility]05-13-2025 Telephone encounter Note* Telephone Encounter - Gertrude Ortiz RN - 11/06/2024 4:35 PM EDT Ryley from [facility] Pharmacy calls for medication clarification. Morphine SR 12 hr tablet was received at pharmacy. Medication is written for three times a day. Pharmacy is questioning directions since medication ordered is extended release. Please review and advise, Gertrude Ortiz RN [facility]05-13-2025 Telephone encounter Note* Telephone Encounter - Sam [...] get back to normal [facility]05-13-2025 Miscellaneous Notes* Telephone Encounter - Sam Khan APRN.CNP - 11/06/2024 10:42 AM EDT Last week [...] get back to normal documented in this encounterCincinnati Va Medical Center05-10-2025 Telephone encounter Note * Telephone Encounter - [...] random UDS (urine drug screen). 3. OARRS ([place] Automated Rx Reporting System) reviewed within 7 days prior to the prior authorization request. The [facility] Policy for Medical Necessity as posted on the [facility] website and [place] [employer] Preferred Drug List criteria were reviewed and per [place] Administrative Code Rule 5160-1-01 (C) [id number] (B), a medically necessary service must include: generally accepted standards of medicalpractice, be clinically appropriate in administration, treatment and outcome and be the lowest costalternative to effectively treat the condition. Please contact your provider to assist you with other treatment options that might be covered under your benefit package, or other services that might be available through the community. Payer: [facility] Electronic appeal: Not supported View History [...] to its destination. To be filled at: [facility] [place] [address] [address] - [phone] [id number] [facility]05-10-2025 Miscellaneous Notes* Telephone Encounter - Violeta Aguirre [...] random UDS (urine drug screen). 3. OARRS ([place] Automated Rx Reporting System) reviewed within 7 days prior to the prior authorization request. The [employer] Policy for Medical Necessity as posted on the [facility] website and [facility] Preferred Drug List criteria were reviewed and per [place] Administrative Code Rule 5160-1-01 (C) [id number] (B), a medically necessary service must include: generally accepted standards of medicalpractice, be clinically appropriate in administration, treatment and outcome and be the lowest costalternative to effectively treat the condition. Please contact your provider to assist you with other treatment options that might be covered under your benefit package, or other services that might be available through the community. Payer: [facility] Electronic appeal: Not supported View History [...] to its destination. To be filled at: [facility] [place] [address] [address] [phone] [id number] * Telephone Encounter - Gabrielle Aguilera MA - 11/02/2024 10:53 AM EDT Electronic PA in process Gabrielle Aguilera MA * Telephone Encounter - Shanon Lowe RN - 11/02/2024 10:41 AM EDT [facility] Pharmacy calling regarding pt's script for MS Contin 30 mg received today. Pharmacist Prasanth states the medication is being rejected by insurance and a prior authorization is needed. He states he sent information through Cover my Meds. RENE: [id number]. Prior authorization requested for the following medication: Medication: MS Contin 30 mg Provider: Sam Khan CNP Insurance Company Name: [employer] Pharmacy Name: [facility] Telephone number: [phone] Will send this message to PA member for review. Shanon Lowe RN documented in this encounterCincinnati Va Medical Center05-09-2025 Telephone encounter Note * Telephone Encounter - Gabrielle Aguilera MA - 11/02/2024 10:53 AM EDT Electronic PA in process Gabrielle Aguilera MA [facility]05-09-2025 Telephone encounter Note* Telephone Encounter - Shanon Lowe RN - 11/02/2024 10:41 AM EDT [facility] Pharmacy calling regarding pt's script for MS Contin 30 mg received today. Pharmacist Prasanth states the medication is being rejected by insurance and a prior authorization is needed. He states he sent information through Cover my Meds. RENE: [id number]. Prior authorization requested for the following medication: Medication: MS Contin 30 mg Provider: Sam Khan CNP Insurance Company Name: [employer] Pharmacy Name: [facility] Telephone number: [phone] Will send this message to PA member for review. Shanon Lowe RN [facility]05-09-2025 NoteThe [facility]05-09-2025 History of Present illness Narrative* Sam Khan APRN.LUIS DANIEL - 11/02/2024 9:58 AM EDT SUBJECTIVE Pat [...] suspiciousactivity was identified. 11/02/2024 by Sam Khan APRN.ORACLE REPORTS DEVELOPER Portions of this note have been entered [...] Sam Khan APRN-LUIS DANIEL documented in this encounterCincinnati Va Medical Center04-30-2025 Telephone encounter Note * Telephone Encounter - [...] out of the office. [facility]04-30-2025 Miscellaneous Notes* Telephone Encounter - Maile Norman [...] you. Nell Haynes LPN. documented in this encounterCincinnati Va Medical Center04-29-2025 Telephone encounter Note * Telephone Encounter - Naty Isabel LPN - 10/23/2024 1:35 PM EDT Patient calling said she did not need the refill until 10/27. Was told by Dr Norman to call Tuesday to ask for the rx refill, she was not aware PCP is out of the office. Patient requesting note to be sent to Sam Khan. [facility]04-29-2025 Telephone encounter Note* Telephone Encounter - Nell [...] you. Nell Haynes LPN. [facility]04-25-2025 NoteThe [facility]04-23-2025 Telephone encounter Note* Telephone Encounter - Alis Hanna - 10/17/2024 11:19 AM EDT Patient called requesting the following refill: Percocet Patients last known Refill Date: 10-15-2024. She was in [place] ER c/o pain as the ER physician, Dr. Duff, called me. She has run out of pain meds. She told him she said no one from office has called her. I told him that is not true. I see billled [facility], not here and I see [...] been 2-1/2 days yet. Patient Phone numbers: [phone] (home) Request is for script(s) to be escript to pharmacy. Alis Sanchez [facility]04-23-2025 Miscellaneous Notes* Telephone Encounter - Alis Hanna - 10/17/2024 11:19 AM EDT Patient called requesting the following refill: Percocet Patients last known Refill Date: 10-15-2024. She was in [place] ER c/o pain as the ER physician, Dr. Duff, called me. She has run out of pain meds. She told him she said no one from office has called her. I told him that is not true. I see [facility] not here and I see that her messages were addressed on Tuesday. She saidbrian wants the Percocet again as the Oxy IR did not help her as much. I let her know this will be weaned to one q 6 h so should last for a week. She really should have a few more as it has not been 2-1/2 days yet. Patient Phone numbers: [phone] (home) Request is for script(s) to be escript to pharmacy. Alis Kwon [place] Daniel documented in this encounterCincinnati Va Medical Center04-23-2025 Telephone encounter Note * Telephone Encounter - Samara Ricksise - 10/17/2024 11:17 AM EDT Payamjersey Moscoso called into the [place] office in concern of this pt They state that the pt is currently in the ED in regards to her pain... The lady calling from the ED states that since the pt recently had surgery Dr. Miller is wanting to touch base with Dr. Valencia before he takes any further steps I informed [facility] that Dr. Valencia is in surgery in [place] right now but I gave them Alis's phone number- so that the ED could potentially reach Dr. Valencia sooner Please give the ED a call back at [phone] Sangeetha Ricks [facility]04-23-2025 Miscellaneous Notes* Telephone Encounter - Samara Ricksise - 10/17/2024 11:17 AM EDT [place] Dan[place] called into the [place] office in concern of this pt They state that the pt is currently in the ED in regards to her pain... The lady calling from the ED states that since the pt recently had surgery Dr. Miller is wanting to touch base with Dr. Valencia before he takes any further steps I informed [facility] that Dr. Valencia is in surgery in [place] right now but I gave them Alis's phone number- so that the ED could potentially reach Dr. Valencia sooner Please give the ED a call back at [phone] Sangeetha Ricks * Telephone Encounter - Yesenia Goyal RN - 10/17/2024 9:58 AM EDT She [...] 17, 2024 8:03 AM documented in this encounterCincinnati Va Medical Center04-23-2025 Telephone encounter Note * Telephone Encounter - Yesenia Goyal RN - 10/17/2024 9:58 AM EDT She should have had oxycodone AND percocet on 10/15. She has called 4 times already crying that she has no pain meds and is in severe pain You dont care that I'm in pain [facility]04-23-2025 Telephone encounter Note* Telephone Encounter - Julia Kaur - 10/17/2024 9:54 AM EDT Patient is calling in stating they are in a lot of pain and ran out of pain medication in the middle of the night. [facility]04-23-2025 Telephone encounter Note* Telephone Encounter - Nory [...] 17, 2024 8:03 AM [facility]04-21-2025 Note* Addendum Note - Laura Martin PA-C - 10/15/2024 2:24 PM EDTAddended by: LAURA MARTIN on: 10/15/2024 02:24 PM Modules accepted: Orders [facility]04-21-2025 Miscellaneous Notes* Addendum Note - Laura Martin [...] 15, 2024 10:04 AM documented in this encounterCincinnati [facility] Center04-21-2025 Note* Addendum Note - Yesenia Goyal RN - 10/15/2024 2:04 PM EDTAddended by: YESENIA GOYAL on: 10/15/2024 02:04 PM Modules accepted: Orders [facility]04-21-2025 Telephone encounter Note* Telephone Encounter - Yesenia [...] asking for nausea today [facility]04-21-2025 Telephone encounter Note* Telephone Encounter - Julia [...] 15, 2024 10:04 AM [facility]04-20-2025 [facility] History of Present illness Narrative* Stuart [...] patient. Stuart Haynes MD documented in this encounterCincinnati [facility] Center04-18-2025 NoteHNO ID: [id number] Author: RAMSEY HANDY APRN.LEARNING DISABILITIES RESOURCE TEACHER Service: Anesthesiology Author Type: Nurse Ecosystem Ecology Professor Type: Anesthesia Procedure Notes Filed: 10/12/2024 14:54 Note Text: ANESTHESIOLOGY PROCEDURE NOTE Airway General Information Procedure Start Time/Medication Administration: 10/12/2024 2:40 PM Procedure End Time: 10/12/2024 2:40 PM Patient location during procedure: OR Timeout Performed Pre-procedure: timeout performed Consent Obtained: Yes Patient identity confirmed: arm band and patient Staffing Performed by: LEARNING DISABILITIES RESOURCE TEACHER Indications and Patient Condition Indications for airway management: anesthesia Preoxygenated: yes anesthesia circuit Patient position: sniffing Method: asleep Final Airway Details Final airway type: endotracheal airway Final Endotracheal Airway: ETT Successful intubation technique: video laryngoscopy Devices used: LessonLab Endotracheal tube insertion site: oral Blade: Lata ETT size (mm): 7.0 Placement verified by: capnometry Cormack-Lehane Classification: grade I - full view of glottis Number of attempts at approach: 1 Comments Easy atraumatic x 1 SIGNATURE: Ramsey Handy APRN.CRNA PATIENT NAME: Pat Medina DATE: October 12, 2024 TIME: 2:54 PM CSN: [id number] NoteHNO ID: [id number] Author: ZACHERY SANCHEZ RN Service: ? Author Type: Registered Nurse Type: Nursing Progress Note Filed: 10/12/2024 14:10 Note Text: Dr amezcua notified pt feels like her right eye is red and swollen, and her throat feels scratchyMedina [id number] NoteHNO ID: [id number] Author: CARIN AMEZCUA MD Service: Anesthesiology Author [...] October 12, 2024 TIME: 12:46 PM CSN: [id number] Telephone encounter Note * Telephone Encounter - [...] Simpson LPN October 01, 2024 9:41 AM [facility]04-07-2025 Miscellaneous Notes* Telephone Encounter - Sujatha Simpson [...] 01, 2024 9:41 AM documented in this encounterCincinnati [facility]04-05-2025 Telephone encounter Note * Telephone Encounter - [...] lasts till surgery date. [facility]04-05-2025 Miscellaneous Notes* Telephone Encounter - Maile Norman [...] requested. Violeta Howard RN documented in this encounterCincinnati [facility] Center04-04-2025 Telephone encounter Note * Telephone Encounter - Susie Interiano RN - 09/28/2024 6:13 PM EDT Reason for Call: Patient is requesting refill of percocet and Xanax Outcome: NOC is unable to refill narcotics, recommend patient contact PCP Tuesday to follow up with the refills requested . For severe pain, go to the ED for evaluation and treatment [facility]04-04-2025 Miscellaneous Notes* Telephone Encounter - Susie Interiano RN - 09/28/2024 6:13 PM EDT Reason for Call: Patient is requesting refill of percocet and Xanax Outcome: NOC is unable to refill narcotics, recommend patient contact PCP Tuesday to follow up with the refills requested . For severe pain, go to the ED for evaluation and treatment documented in this encounterCinc[facility]04-04-2025 Telephone encounter Note * Telephone Encounter - Charles Serrano - 09/28/2024 9:17 AM EDT Please reach out and assist patient in scheduling post-op physical therapy. She is having surgery 10-12-2024. She should be seen in therapy approximately 1 week post-op. She would like to go to [place]. Thank you. Charles Stanton [facility]04-04-2025 Miscellaneous Notes* Telephone Encounter - Charles Serrano - 09/28/2024 9:17 AM EDT Please reach out and assist patient in scheduling post-op physical therapy. She is having surgery 10-12-2024. She should be seen in therapy approximately 1 week post-op. She would like to go to [place]. Thank you. Charles Stanton documented in this encounterCinc[facility] Center04-04-2025 History and physical note * Sharmin Quinteros APRN.ORACLE REPORTS DEVELOPER - 09/28/2024 9:10 AM EDT Images from [...] large neck Non-male patient STOP-Bang Score: 1 [id number] Score: Age: <65 Sex: female CHF history: No Hypertension history: No Stroke/TIA/thromboembolism history: No Vascular disease history: No Diabetes history: No [id number] Score: 1 ARISCAT Score: Age: <=50 Preoperative [...] s/p rightrotator cuff repair. 09/14/2024, Dr. Louis Valencia Pat [...] Positive for: headaches. Negative for: cerebral palsy, V GROOVE CUTTER tumor, dementia, impaired sensorium, multiple sclerosis, Parkinson's disease, peripheral neuropathy, seizures, TIA and strokes. Respiratory: Positive for: tobacco use (1ppd). Negative for: asthma, COPD, current cough, dyspnea, pneumonia within 6 weeks, URI < 2 weeks and obstructive sleep apnea. Cardiovascular: No history of HTN requiring medication, no history of angina, CHF, DE, cardiac surgery or stents. Denies rest pain, [...] > 1 time per night or hematuria. DISBURSING OFFICER: Negative for abnormal vaginal bleeding, abnormal vaginal [...] Anxiety Congestive heart failure (HCC) during . 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 No issues in [...] Cancer Maternal Grandfather BLADDER Heart Maternal Grandfather DE & EMPHYSEMA Social History Tobacco Use Smoking [...] or any previous visit (from the past 24445 hours). Instructions Given to Patient: Instructions located in the after visit summary. Patient given verbal and written preop instructions and voices comprehension and compliance. SIGNATURE: Sharmin Quinteros APRN.LUIS DANIEL PATIENT NAME: Pat Medina DATE: September 28, 2024 TIME: 9:10 AM PAGER/CONTACT #: [facility]04-04-2025 History and physical note* Sharmin Quinteros APRN.CNP [...] large neck Non-male patient STOP-Bang Score: 1 [id number] Score: Age: <65 Sex: female CHF history: No Hypertension history: No Stroke/TIA/thromboembolism history: No Vascular disease history: No Diabetes history: No [id number] Score: 1 ARISCAT Score: Age: <=50 Preoperative [...] (Right) at the request of Dr. Louis Valecnia for consultation. My finalrecommendation will be communicated [...] cuff repair. 09/14/2024, Dr. Louis Loya Erik Pat is a 44-year-old female with a [...] Positive for: headaches. Negative for: cerebral palsy, V GROOVE CUTTER tumor, dementia, impaired sensorium, multiple sclerosis, Parkinson's disease, peripheral neuropathy, seizures, TIA and strokes. Respiratory: Positive for: tobacco use (1ppd). Negative for: asthma, COPD, current cough, dyspnea, pneumonia within 6 weeks, URI < 2 weeks and obstructive sleep apnea. Cardiovascular: No history of HTN requiring medication, no history of angina, CHF, DE, cardiac surgery or stents. Denies rest pain, [...] > 1 time per night or hematuria. DISBURSING OFFICER: Negative for abnormal vaginal bleeding, abnormal vaginal [...] Anxiety Congestive heart failure (HCC) during . 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 No issues in [...] Cancer Maternal Grandfather BLADDER Heart Maternal Grandfather DE & EMPHYSEMA Social History Tobacco Use Smoking [...] or any previous visit (from the past 44978 hours). Instructions Given to Patient: Instructions located in the after visit summary. Patient given verbal and written preop instructions and voices comprehension and compliance. SIGNATURE: Sharmin Quinteros APRN.CNP PATIENT NAME: Pat Medina DATE: September 28, 2024 TIME: 9:10 AM PAGER/CONTACT #: documented in this encounterCincinnati [facility] Center04-04-2025 Instructions* Patient Instructions* Sharmin Quinteros APRN.CNP - 09/28/2024 9:09 AM EDT Images from the original note were not included. [facility] PATIENT PREOPERATIVE INSTRUCTIONS Louis Valencia,* has scheduled you for your procedure at this surgery center: [facility]: [phone] -- [address] [place] [address]. Please read below carefully for your personalized [...] office. If you are currently using a gemk-gvb-dfhp injectable or oral medication for diabetes or [...] Procedures: - YOU MUST HAVE A RESPONSIBLE SEAMLESS TUBE DRAWER TAKE YOU HOME. A MANAGER URGENT CARE OR GARDE MANAGER CANNOT BE MADE A RESPONSIBLE SEAMLESS TUBE DRAWER. - We recommend that a responsible person [...] Advance Directive, please fax a copy to [phone] or email to for it to be [...] Sharmin Quinteros APRN.LUIS DANIEL documented in this encounterCincinnati [facility]04-03-2025 Telephone encounter Note * Telephone Encounter - Otilia Douglas RN - 09/27/2024 7:53 PM EDT Pt called in checking on medication refills. I let her know that Dr Norman is out of the office on . She had previous nurse forward message from Sam Khan Conference Manager to Dr Norman when she found out she was off. I let her know she sent I to the provider. [facility]04-03-2025 Telephone encounter Note* Telephone Encounter - Violeta [...] requested. Violeta Howard RN [facility]03-28-2025 History of Present illness Narrative* Constanza Stafford, [...] PATIENT PRESENTS WITH AN IMPLANTABLE OR ATTACHED MANAGER PEOPLE: No RADIOLOGY DEPARTMENT: General X-ray: Exam(s) Completed: Pelvis X-Ray: Pelvis with Hip Bilateral PERIPHERAL IV DATA: Not applicable SIGNED BY: RT Verónica(R) September 21, 2024 9:17 AM documented in this encounterCinc[facility]03-28-2025 NoteThe [facility]03-28-2025 NoteThe [facility]03-28-2025 History of Present illness Narrative* Sam Khan APRN.ORACLE REPORTS DEVELOPER - 09/21/2024 8:59 AM EDT Images from the original note were not included. SUBJECTIVE Pat Medina is a 44 year old female here today for a check up on her medical problems. Chief Complaint Patient presents with: Abdominal Pain: lower right abdomen described it as a pinching pain at times. On going since treated for pneumonia kisrten 2023 TALIA Stewart is a 44-year-old female [...] The patient consented to the use of Flyfit software for draft documentation of the visit [...] for Keep next scheduled appointment.. Sam Khan APRN-ORACLE REPORTS DEVELOPER documented in this encounterCinc[facility]03-21-2025 NoteThe [facility]03-21-2025 History of Present illness Narrative* Louis [...] Ricardo (pain) - Pain with Speed and Cambridge testing - Pain with Belly Press test [...] & Elbow Surgeon Department of Orthopaedic Surgery [facility] documented in this encounterCinc[facility]03-20-2025 Telephone encounter Note * Telephone Encounter - [...] Provider: MAILE NORMAN MD [facility]03-20-2025 Miscellaneous Notes* Telephone Encounter - Maile Norman [...] 13, 2024 7:40 AM documented in this encounterCincinnati [facility] Center03-20-2025 Telephone encounter Note * Telephone Encounter - [...] 13, 2024 7:40 AM [facility]03-07-2025 Telephone encounter Note* Telephone Encounter - Maile [...] Provider: MAILE NORMAN MD [facility]03-07-2025 Miscellaneous Notes* Telephone Encounter - Maile Norman [...] you. Nell Haynes LPN. documented in this encounterCincinnati [facility] Center03-06-2025 Telephone encounter Note * Telephone Encounter - [...] you. Nell Haynes LPN. [facility]02-24-2025 Telephone encounter Note* Telephone Encounter - Sujatha Simpson LPN - 08/20/2024 11:43 AM EST Addressed in another encounter dated 08/18/24. [address]24-2025 Miscellaneous Notes* Telephone Encounter - Sujatha Simpson [...] Please call patient today. documented in this encounterCincinnati [facility] Center02-24-2025 Telephone encounter Note * Telephone Encounter - Sujatha Simpson LPN - 08/20/2024 11:38 AM EST PATIENT NOTIFIED OF SAME. [facility]02-24-2025 Miscellaneous Notes* Telephone Encounter - Sujatha Simpson [...] mother peggy is in the hospital in [place]. Patient is asking for the Percocet rx [...] fly out tomorrow morning to go to [place], her mother in law is not doing well. Patient uses [facility] for her pharmacy. Would need approval put on the rx to have pharmacy fill rx today. Please advise documented in this encounterCincinnati [facility] Center02-24-2025 Telephone encounter Note * Telephone Encounter - [...] fill today due to needing to leave [facility] for family emergency Authorizing Provider: MAILE NORMAN MD [facility]02-24-2025 Telephone encounter Note* Telephone Encounter - Gertrude Ortiz RN - 08/20/2024 9:59 AM EST Patient calling back and states that she needs this done because he already postponed her flight once because she did not get her pain medications. Patient states that pain medications are due tomorrow but pharmacy will fill prescription if provider ok refill early. Gertrude Ortiz RN [facility]02-24-2025 Telephone encounter Note* Telephone Encounter - Naty Isabel LPN - 08/20/2024 8:05 AM EST Patient calling she postponed her flight from yesterday to this evening. Patient said her mother peggy is in the hospital in [place]. Patient is asking for the Percocet rx for today and to beable to fill it today please. Please notify patient when rx is sent to the pharmacy. Please advise [facility]02-22-2025 Telephone encounter Note* Telephone Encounter - Sharmin Gonzales RN - 08/18/2024 3:46 PM EST Patient calling regarding Needing a refill of her pain medication before she leaves the area.. Conferenced to [facility] single spindle screw machine operator, Bonita, to speak with provider invertebrate paleontologist for [facility]. [facility]02-22-2025 Miscellaneous Notes* Telephone Encounter - Sharmin Gonzales RN - 08/18/2024 3:46 PM EST Patient calling regarding Needing a refill of her pain medication before she leaves the area.. Conferenced to [facility] single spindle screw machine operator, Bonita, to speak with provider invertebrate paleontologist for [facility]. documented in this encounterCinc[facility]02-22-2025 Telephone encounter Note * Telephone Encounter - [...] have any questions, you can call Nurse in service education teacher back. [facility]02-22-2025 Miscellaneous Notes* Telephone Encounter - Carol Castellanos [...] have any questions, you can call Nurse in service education teacher back. documented in this encounterCinc[facility] Center02-22-2025 Telephone encounter Note * Telephone Encounter - Naty Isabel LPN - 08/18/2024 8:23 AM EST Patient calling asking if PCP could give her Percocet rx to be filled today, is due to be refilled on Tuesday. Patient said she has family emergency and needs to fly out tomorrow morning to go to [place], her mother in law is not doing well. Patient uses [facility] for her pharmacy. Would need approval put on the rx to have pharmacy fill rx today. Please advise [facility]02-22-2025 Telephone encounter Note* Telephone Encounter - Michelle Atkinson - 08/18/2024 8:08 AM EST Patient is calling to speak to clinical about pain medication. Patient is leaving Tuesday morning at5:00 am, and states refill is not due until Tuesday. She is asking to have it filled prior. Please call patient today. [facility] Work Phone: 1(332) 628-619302-12-2025 Telephone encounter Note* Telephone Encounter - Charles Serrano - 08/08/2024 8:52 AM EST Bobbin Dumper request faxed/scanned in osbaldo Snell. ^^^^^^^^^^^^^^^^^^^^ Patient called in inquiring about the letter she brought in at her appointment when she saw Dr. Valencia at her appointment in May,. (This letter has been scanned into her chart). Per Dr. Valencia he did answer the questions in his dictation and this will be forwarded to her string cutter's office by his medical unit secretary. I left a message for the patient to call back with any additional questions or concerns about the cortisone injection she received. She did stated that she was still having some pain. Charles Stanton [facility]02-12-2025 Miscellaneous Notes* Telephone Encounter - Charles Serrano - 08/08/2024 8:52 AM EST Bobbin Dumper request faxed/scanned in osbaldo per Alis. ^^^^^^^^^^^^^^^^^^^^ Patient called in inquiring about the letter she brought in at her appointment when she saw Dr. Valencia at her appointment in May,. (This letter has been scanned into her chart). Per Dr. Valencia he did answer the questions in his dictation and this will be forwarded to her string cutter's office by his medical unit secretary. I left a message for the patient to call back with any additional questions or concerns about the cortisone injection she received. She did stated that she was still having some pain. Charles Stanton documented in this encounterCinc[facility] Center02-08-2025 Telephone encounter Note * Telephone Encounter - [...] Provider: MAILE NORMAN MD [facility]02-08-2025 Miscellaneous Notes* Telephone Encounter - Maile Norman [...] 03, 2024 7:45 AM documented in this encounterCinc[facility] Center02-07-2025 NoteThe [facility]02-07-2025 History of Present illness Narrative* Erik, Louis Vincenzo, MD - 08/03/2024 2:57 PM ESTAssociated Order(s): [...] & Elbow Surgeon Department of Orthopaedic Surgery [facility] documented in this encounterCinc[facility]02-07-2025 Telephone encounter Note * Telephone Encounter - [...] 03, 2024 7:45 AM [facility]02-04-2025 Instructions* Patient Instructions* Maile Norman MD - [...] needed for headache relief; these are available [id number]. - Continue taking Oxycodone as needed for [...] ensure they are addressed. - Consider exploring [address]stries for additional support and resources. - Next follow-up appointment in 3 months. documented in this encounterCinc[facility] Center02-04-2025 NoteThe [facility]02-04-2025 History of Present illness Narrative* Maile Norman MD - 07/31/2024 11:01 AM EST This note was created using Med fusionter. Subjective Pat Medina is a 44 year [...] her counselor and has recently started attending baptism, which she finds helpful. Pat is currently [...] Anxiety Congestive heart failure (HCC) during . 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 No issues in [...] the date of the service which included hlic-uk-hhip patient care, completing clinical documentation, obtaining and/or reviewing separately obtained history, performing a medically appropriate examination, counseling and educating the patient/family/caregiver, and ordering medications, tests, or procedures. Maile Norman MD documented in this encounterCincinnati [facility] Center01-24-2025 Telephone encounter Note * Telephone Encounter - [...] Provider: MAILE NORMAN MD [facility]01-24-2025 Miscellaneous Notes* Telephone Encounter - Maile Norman [...] 20, 2024 8:44 AM documented in this encounterCinc[facility] Center01-24-2025 Telephone encounter Note * Telephone Encounter - [...] Minaya LPN July 20, 2024 8:44 AM [facility]01-23-2025 [facility] Medical Records Department [address] [place] [id number] History Physical Exam 01/1123 MR#: [id number] Acct: [id number] Name: PAT MEDINA Rep #: [id number] : 1980 44 From: Constanza Cordova MD PCP: Dr. Maile Norman MD Status:REG [facility] Location: [place] [address] History and Physical Date of Admission: 07/19/24 [...] PLAN: Plan For excision cyst left forearm. 07/19/241124 Cosigner Signature (if applicable): CC: Dr. Maile Norman MD; Dr. Constanza Cordova MD [facility] Telephone encounter Note* Telephone Encounter - Feli Walton LPN - 07/16/2024 1:32 PM EST Form and office note has been faxed to number below. [facility]01-20-2025 Miscellaneous Notes* Telephone Encounter - Feli Walton LPN - 07/16/2024 1:32 PM EST Form and office note has been faxed to number below. * Telephone Encounter - Karen Mckee APRN.CNS - 07/16/2024 12:47 PM EST Ok will send today. * Telephone Encounter - Otilia Douglas RN - 07/16/2024 9:08 AM EST Nguyen with [facility] with Dr Cordova called in and reports Pt had an appointment with Kraen Mckee on 07/13/24. She states Pt brought in medical clearance form for provider to fill out. They need the medical clearance form and OV note from 07/13 faxed over to # [phone]. She is askingif this can be done today as the Pt has surgery on . Otilia Douglas RN documented in this encounterCincinnati [facility] Center01-20-2025 Telephone encounter Note * Telephone Encounter - Karen Mckee APRN.CNS - 07/16/2024 12:47 PM EST Ok will send today. [facility]01-20-2025 Telephone encounter Note* Telephone Encounter - Otilia Douglas RN - 07/16/2024 9:08 AM EST Nguyen with [facility] with Dr Cordova called in and reports Pt had an appointment with Karen Mckee on 07/13/24. She states Pt brought in medical clearance form for provider to fill out. They need the medical clearance form and OV note from 07/13 faxed over to # [phone]. She is askingif this can be done today as the Pt has surgery on . Otilia Douglas RN [facility]01-17-2025 History of Present illness Narrative* Karen Mckee APRN.CNS - 07/13/2024 10:40 AM EST SUBJECTIVE: Hepatitis B Vaccine(2 of 3 - Hep B Twinrix 3-dose series) due on 05/19/2016 Mammogram Screening Never done Cervical Cancer Screening due on 09/28/2022 TALIA Medina is a 44year old female. PMH [...] plastic surgery with Dr. Constanza Cordova at [facility] with date to be determined following [...] to resolution. No recurrence. No history of DE or CVA. No shortness of breath on [...] Anxiety Congestive heart failure (HCC) during . 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 No issues in [...] DIFFERENTIAL - COMPREHENSIVE METABOLIC PANEL Karen Mckee APRN.V GROOVE CUTTER Medical Decision Making: Problems: Moderate: 2+ stable chronic illnesses Data: Unique test(s) ordered: 2 Risk: Moderate: Decision on minor surgery w/ risk factors Medical Decision Making Level: 4 - Moderate documented in this encounterCinc[facility]01-17-2025 NoteThe [facility]01-15-2025 History of Present illness Narrative* Maile Norman MD - 07/11/2024 9:20 AM EST Rescheduled documented in this encounterCincinnati [facility] Medical Center01-15-2025 NoteHNO ID: [id number] Author: MAILE NORMAN MD Service: ? Author Type: Physician Type: Progress Notes Filed: 08/16/2024 22:36 Note Text: [facility]cheduledThe [facility]01-13-2025 NoteThe [facility] 07-09-2024 History of Present illness Narrative* Cecile Patricia APRN.ORACLE REPORTS DEVELOPER - 07/09/2024 7:04 AM EST Hydroelectric Station Chief offered: Patient declines. Stewart is a 44 year old who [...] L2 SAB2 IAB1 Ectopic0 Multiple0 Live Births2 Chemical Operations Specialist History LMP: 05/07/2009, Ablation Age at Menarche: Age at First : Age at Menopause: Chemical Operations Specialist History Comments: Sexual Activity: Yes; Male Contraception: Surgical, Tubal Ligation PAST MEDICAL HISTORY Diagnosis Date Abdominal pain, unspecified site Abnormal glandular Papanicolaou smear of cervix 04/08/2006 Abn. 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 No issues in [...] Cancer Maternal Grandfather BLADDER Heart Maternal Grandfather DE & EMPHYSEMA SOCIAL HISTORY Social History Tobacco [...] discussed with the Patient or Patient's Authorized Car Repairer Pullman. As applicable, any other physician, advance practice provider, medical student, or other health professional student that will be observing or involved in the sensitive examination for educational or training purposes was discussed with the Patient or Authorized Car Repairer Pullman. The Patient or Authorized Car Repairer Pullman has agreed to proceed with the sensitive [...] external genitalia normal, normal Bartholin's glands, urethra, [place]'s glands, no vulvar lesions, no cervical lesions, [...] STIMULATING HORMONE - ESTRADIOL-17B BLD Cecile Patricia APRN.ORACLE REPORTS DEVELOPER documented in this encounterCincinnati [facility] Center01-11-2025 Telephone encounter Note * Telephone Encounter - Adelina Porras MA - 07/07/2024 10:55 AM EST Pt notified and voiced understanding. Adelina Porras MA [facility]01-11-2025 Miscellaneous Notes* Telephone Encounter - Adelina Porrsa MA - 07/07/2024 10:55 AM EST Pt notified and voiced understanding. Adelina Porras MA * Telephone Encounter - Jorge Luis Ace MD - 07/07/2024 10:53 AM EST I am not able to do that as the invertebrate paleontologist doctor. Jorge Luis Ace MD * Telephone Encounter - Otilia Douglas RN - 07/07/2024 9:12 AM EST Pt called in and reports her mother in law in [place], [place] just had a heart attack. She states her and he are going down there after he gets done with work [employer]. She states she is going to try and get her into a alf up here. She states provider put in to have her Percocet refilled on Tue07/10/24. She is asking if provider would allow her to get it filled early. I told her another provider may not, and they could call it into as pharmacy where she goes to. Please call and advise. documented in this encounterCincinnati [facility] Center01-11-2025 Telephone encounter Note * Telephone Encounter - Jorge Luis Ace MD - 07/07/2024 10:53 AM EST I am not able to do that as the invertebrate paleontologist doctor. Jorge Luis Ace MD [facility] Work Phone: [phone] Telephone encounter Note* Telephone Encounter - Otilia Douglas RN - 07/07/2024 9:12 AM EST Pt called in and reports her mother in law in [place], [place] just had a heart attack. She states her and he are going down there after he gets done with work tonight. She states she is going to try and get her into a alf up here. She states provider put in to have her Percocet refilled on Tue07/10/24. She is asking if provider would allow her to get it filled early. I told her another provider may not, and they could call it into as pharmacy where she goes to. Please call and advise. [facility]01-10-2025 Telephone encounter Note* Telephone Encounter - Maile [...] 10, 2024. Authorizing Provider: MAILE NORMAN MD [facility]01-10-2025 Miscellaneous Notes* Telephone Encounter - Maile Norman [...] Pended Zara Jay LPN documented in this encounterCincinnati [facility] Center01-10-2025 Telephone encounter Note * Telephone Encounter - Zara Jay LPN - 07/06/2024 2:00 PM EST Last script filled on 06/23/2024. Pended Zara Jay LPN [facility]01-06-2025 Telephone encounter Note* Telephone Encounter - Feli [...] 02, 2024 2:19 PM [facility]01-06-2025 Miscellaneous Notes* Telephone Encounter - Feli Walton [...] 02, 2024 2:19 PM documented in this encounterCincinnati [facility] Center12-28-2024 Telephone encounter Note * Telephone Encounter - [...] Provider: MAILE NORMAN MD [facility]12-28-2024 Miscellaneous Notes* Telephone Encounter - Maile Norman [...] 22, 2024 3:23 PM documented in this encounterCincinnati Va Medical Center12-28-2024 Telephone encounter Note * Telephone Encounter - Maile Norman MD - 06/23/2024 1:49 AM EST The following approved medication requests have been transmitted electronically. Requested Prescriptions Pending Prescriptions Disp Refills meloxicam (MOBIC) 15 mg tablet 30 tablet 5 Sig: Take 1 tablet by mouth once daily. With food. Maile Norman MD [facility]12-28-2024 Miscellaneous Notes* Telephone Encounter - Maile Norman [...] 22, 2024 3:24 PM documented in this encounterCincinnati [facility] Center12-27-2024 Telephone encounter Note * Telephone Encounter - [...] 22, 2024 3:24 PM [facility]12-27-2024 Telephone encounter Note* Telephone Encounter - Sujatha [...] 22, 2024 3:23 PM [facility]12-20-2024 History of Present illness Narrative* Charles Ortiz RT(R) - 06/15/2024 1:00 PM EST Radiology Service [...] PATIENT PRESENTS WITH AN IMPLANTABLE OR ATTACHED MANAGER PEOPLE: No RADIOLOGY DEPARTMENT: MR; Exam(s) Completed: Upper MSK: Shoulder, right PERIPHERAL IV DATA: Not applicable SIGNED BY: RT Krys(R) June 15, 2024 1:08 PM documented in this encounterCincinnati Va Medical Center12-20-2024 [facility]The [facility]12-[facility] Telephone encounter Note* Telephone Encounter - [...] Provider: MAILE NORMAN MD [facility]12-15-2024 Miscellaneous Notes* Telephone Encounter - Maile Norman [...] 08, 2024 9:06 AM documented in this encounterCincinnati [facility] Center12-13-2024 Telephone encounter Note * Telephone Encounter - [...] 08, 2024 9:06 AM [facility]12-10-2024 Telephone encounter Note* Telephone Encounter - Naty Isabel LPN - 06/05/2024 2:54 PM EST Patient calling asking to have General surgery consult faxed to [facility] at [phone]. Printed face sheet, xray report, office notes, consult and faxed as requested. [facility]12-10-2024 Miscellaneous Notes* Telephone Encounter - Naty Isabel LPN - 06/05/2024 2:54 PM EST Patient calling asking to have General surgery consult faxed to [facility] at [phone]. Printed face sheet, xray report, office notes, consult and faxed as requested. documented in this encounterCincinnati Va Medical Center12-03-2024 Telephone encounter Note * Telephone Encounter - Nory Godinez - 05/29/2024 1:53 PM EST Images from the original note were not included. Doyle Jig Bore Operator Alis Sanchez to [facility] 05/29/24 1:17 PM If patient called your office then please return the call. Next time, just have patient call [place] [facility] or have them contact [facility] PreAccess Dept if you don't want to address patient's question because they have not been seen at [facility]. Thank you Called and spoke with the patient. Explained to the patient that because all information about her claim and appointments has not cometo the [place] office we were unable to assist her when she called earlier. Told her that a message has been sent over to Lizette Villasenor PA-C and Alis regarding her call from earlier. Patient stated her and her string cutter have left multiple messages at 's [place] office. Gave her the number for [place]is [place] [facility] the number for the [facility] Pre-Access 3rd alliance party per the message above from Alis, and the number for the ombudsman. [facility]12-03-[facility]24 Miscellaneous Notes* Telephone Encounter - Nory Godinez - 05/29/2024 1:53 PM EST Images from the original note were not included. [facility] [place] Alis Sanchez to [facility] 05/29/24 1:17 PM If patient called your office then please return the call. Next time, just have patient call [facility] or have them contact [facility] if you don't want to address patient's question because they have not been seen at [facility]. Thank you Called and spoke with the patient. Explained to the patient that because all information about her claim and appointments has not cometo the [place] office we were unable to assist her when she called earlier. Told her that a message has been sent over to Lizette Villasenor PA-C and Alis regarding her call from earlier. Patient stated her and her string cutter have left multiple messages at 's [place] office. Gave her the number for Alis ('s [facility] the number for the [facility] Pre-Access 3rd alliance party per the message above from Alis, and the number for the ombudsman. * Telephone Encounter - Nory Godinez - 05/29/2024 12:54 PM EST Routing to 's Manager Media for [place] where patient has been seen exclusively. Closing encounter for [employer]. * Telephone Encounter - Kimberly England - 05/29/2024 12:21 PM EST Patient called stating she needs a letter from Dr Valencia stating why a rotator cuff tear and bicep tendonitis would not show up on an MRI for a court date she had on 05/31/2024. Her string cutter needs this letter SIM. 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 Closing encounter for [employer] [facility]. [facility]12-03-2024 Telephone encounter Note* Telephone Encounter - Kimberly England - 05/29/2024 12:21 PM EST Patient called stating she needs a letter from Dr Valencia stating why a rotator cuff tear and bicep tendonitis would not show up on an MRI for a court date she had on 05/31/2024. Her string cutter needs this letter SIM. 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 Authorizing Provider: MAILE NORMAN MD [facility]12-02-2024 Miscellaneous Notes* Telephone Encounter - Maile Norman [...] she needs refill by tomorrow. Last ov w/Conference Manager: 05-15-24 Next ov w/pcp: 07-31-24 documented in this encounterCincinnati Va Medical Center12-02-2024 Telephone encounter Note * Telephone Encounter - [...] 28, 2024 4:32 PM [facility]12-02-2024 Telephone encounter Note* Telephone Encounter - Sharon Sutherland RN - 05/28/2024 11:11 AM EST Patient reports she needs refill by tomorrow. Last ov w/Conference Manager: 05-15-24 Next ov w/pcp: 07-31-24 [facility]11-29-2024 Telephone encounter Note* Telephone Encounter - Gabrielle Aguilera MA - 05/25/2024 2:26 PM EST Patient was notified Gabrielle Aguilera MA [facility]11-29-2024 Miscellaneous Notes* Telephone Encounter - Gabrielle Aguilera MA - 05/25/2024 2:26 PM EST Patient was notified Gabrielle Aguilera MA * Telephone Encounter - Galo Bernal APRN.CNP - 05/25/2024 1:12 PM EST Please inform patient that an x-ray is negative. Follow-up with PCP if symptoms are not improving. Galo Bernal APRN.LUIS DANIEL documented in this encounterCincinnati Va Medical Center11-29-2024 Telephone encounter Note * Telephone Encounter - Galo Bernal APRN.CNP - 05/25/2024 1:12 PM EST Please inform patient that an x-ray is negative. Follow-up with PCP if symptoms are not improving. Galo Bernal APRN.CNP [facility]11-29-2024 History of Present illness Narrative* Mario Campos RT(R) - 05/25/2024 12:00 PM EST Radiology Service [...] PATIENT PRESENTS WITH AN IMPLANTABLE OR ATTACHED MANAGER PEOPLE: No RADIOLOGY DEPARTMENT: General X-ray: Exam(s) Completed: Upper Extremity X- Ray(s): Hand, right PERIPHERAL IV DATA: Not applicable SIGNED BY: RT Walter(R) May 25, 2024 11:53 AM documented in this encounterCincinnati Va Medical Center11-29-2024 NoteThe [facility]11-27-2024 NoteThe [facility]11-27-2024 History of Present illness Narrative* Galo [...] Anxiety Congestive heart failure (HCC) during . 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 No issues in [...] <AGE 14 1986 Tonsillectomy ALLERGIES Pamprin Multi-Symptom [Naaqpuyxttfex-Yuearioj-Nkahsib], Buspar [Buspirone], Codeine, Lamotrigine, Nitrofurantoin Macrocrystal, and [...] Cancer Maternal Grandfather BLADDER Heart Maternal Grandfather DE & EMPHYSEMA Social History Tobacco Use Smoking [...] Wt 55.8 kg (123 lb 0.3 oz) LMP107/07/2008 SpO2 96% BMI 20.47 kg/m Review of [...] agrees with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 11/16/2023 by Sam Khan APRN.CNP documented in this encounterCinc[facility]05-17-2024 History of Present illness Narrative* Sam Khan APRN.CNP - 11/11/2023 10:15 AM EDT SUBJECTIVE Pat Medina is a 43 year old female here today for a check up on her medical problems. Chief Complaint Patient presents with: Medication Follow-up HPI Pta Medina is a 43 year old female. [...] and medications.. BOO Borrero documented in this encounterCinc[facility] Center05-15-2024 Telephone encounter Note * Telephone Encounter - [...] share or sell medication. [facility]05-15-2024 Miscellaneous Notes* Telephone Encounter - Sam Khan [...] share or sell medication. documented in this encounterCinc[facility]05-10-2024 Telephone encounter Note * Telephone Encounter - [...] by Sam Khan APRN.CNP [facility]05-10-2024 Miscellaneous Notes* Telephone Encounter - Sam Khan [...] suspiciousactivity was identified. 11/04/2023 by Sam Khan APRN.LUIS DANIEL documented in this encounterCinc[facility] Center04-30-2024 History of Present illness Narrative* Yodit Baker, PT - 10/25/2023 11:33 AM EDT Program_ID:[id number] Access Code: [email or web address] URL: [email or web address] Date: 10-25-2023 Prepared By: Yodit Baker Program [...] 10/17/23 Goals updated on 10/25/2023 through 11/29/23 [place] in home exercise program. -- MET Patient [...] Patient to be seen for Therapeutic exercise (33528), Neuromuscular re-education (94628), Manual therapy (64069), Therapeutic activities (06546), Self-group home management (61933), Gait Training (94229) PLAN FOR NEXT VISIT: continue progressing toward [...] 2x each AROM taken. 2: *Access Code: [email or web address] URL: [email or web address] Date: 10/25/2023 Prepared by: Yodit Guillen Exercises [...] and function . Patient education as noted. Self-Fdc Management: Skilled Intervention: Skilled judgment in the [...] 1155 Yodit Baker PT documented in this encounterCinc[facility] Center04-26-2024 Telephone encounter Note * Telephone Encounter - [...] by Sam Khan APRN.CNP [facility]04-26-2024 Miscellaneous Notes* Telephone Encounter - Sam Khan [...] suspiciousactivity was identified. 10/21/2023 by Sam Khan APRN.LUIS DANIEL documented in this encounterCinc[facility] Center04-19-2024 History of Present illness Narrative* Sam Khan [...] unexpected travel plans for care of her okcrei-zz-gul and will need to refill her percocet [...] Sam Khan APRN-LUIS DANIEL documented in this encounterCinc[facility] Center04-16-2024 History of Present illness Narrative* Louis Valencia MD - 10/11/2023 11:03 AM EDT Images from the original note were not included. PAIN EVALUATION 10/10/2023 1237 10/11/2023 1015 Pain Level: 7 6 Pain Location: -- Shoulder-Right Description: Aching;Burning;Itching;Numbness;Stabbing;Throbbing Burning;Aching;Sharp Frequency: -- Continuous Intervention/Comfort measure: Medication;Reposition;Relaxation;Cold;Emotional Support/Reassurance;Pillow support;Positioning;Splinting -- Pat Adam presents today [...] & Elbow Surgeon Department of Orthopaedic Surgery [facility] Medical Decision Making: Medical Decision Making Level: 1 - N/A documented in this encounterCinc[facility] Center04-15-2024 History of Present illness Narrative* Claire Harrington PTA - 10/10/2023 11:27 AM EDT Program_ID:[id number] Access Code: [email or web address] URL: [email or web address] Date: 10-10-2023 Prepared By: Yodit Baker Program [...] 1145 UMA Malhotra PT documented in this encounterCinc[facility] Center04-08-2024 Miscellaneous Notes* Telephone Encounter - Amber Minaya [...] week RX as ordered before 09/26 to warehouse picker 10/03 The following approved medication requests [...] primary care: 10/14/2023 Please advise. Thank you. rTe Perez MA. documented in this encounterCinc[facility] Center04-08-2024 History of Present illness Narrative* Yodit Baker, PT - 10/03/2023 11:04 AM EDT Episode [...] a follow up with Dr. Valencia on [facility] 10/06/23. Pt wearing abduction sling today, trying [...] 1132 UMA Malhotra PT documented in this encounterCinc[facility] Center04-02-2024 History of Present illness Narrative* Sam Khan APRN.ORACLE REPORTS DEVELOPER - 09/27/2023 1:19 PM EDT Images from [...] follow up, seen in the ER at [facility] yesterday 09/25. A few days prior [...] Sam Khan APRN-LUIS DANIEL documented in this encounterCincinnati [facility] Medical Center04-02-2024 Hospital Discharge instructions Patient Education 09/26/2023 22:06:58 [...] shoulder or upper arm Fever or chills [phone] [employer] [address] [place] [address]. All rights reserved. This information is not intended as a substitute for professional medical care. Always follow yourhealthcare professional's instructions. Follow Up Care 09/26/2023 19:29:15 With:Follow-up with your orthopedic surgeon as soon as possible. Address:Unknown When:2-4 days With:MAILE NORMAN Address: [address] [place] [phone]- Business (1) When:2-4 days Comments:Return to ED if symptoms worsen [facility] 04-01-2024 Emergency department Discharge summary Discharge Instructions [...] to ED if symptoms worsen Where: [address] [place] [address]- S[place]te[place] (1) Allergies LaMICtal Pamprin Maximum Pain codeine [...] shoulder or upper arm Fever or chills [phone] [employer] [address] [place] [address]. All rights reserved. This information is not intended as a substitute for professional medical care. Always follow yourhealthcare professional's instructions. Additional Information VACCINATE! IT SAVES LIVES! Members of the community who have not yet received the COVID-19 vaccine and would like to receive it can visit one of [facility] vaccine clinics. There are many vaccine clinic locations within the [facility]. For locations and available times, please visit www.gettheshot.[email or web address].[place].gov/. It is important to note that some COVID mobile vaccine clinics are held outdoors and may be canceled in rainy or stormy conditions. To learn more about pediatric vaccinations (ages 5-11), we invite you to visit the [facility] webpage. https://www.[facility].org/pages/5432-Jbojs-Sxhlwrcvzwl-Fvpuyhqbgj-Yhgup-Rms stions.htmlTo learn more about the COVID-19 vaccine, we invite you to visit the CDC website for a list of frequently asked questions. https://www.cdc.gov/coronavirus/2019-ncov/vaccines/faq.html [employer] Patient Portal Access Instructions: Stay connected with your healthcare team and access your personal medical information anytime with the [employer] Patient Portal. If you would like a full copy of your medical records please contact the [facility] Medical Records Department Tuesday through Tuesday between 8a.m. and 4:30p.m. Please follow the directions below to access the portal: 1.Access the email account you provided upon registration to the [facility].2.Look for an invitation email from [facility].3.Open the email and access the invitation link: Accept Invitation to [employer]4.Fill in the required moore to create your account. Sign into [email or web address].Fetch MD with your username and password that you [...] you will allow to register on the [employer] Patient Portal for access to your information. You can also access the [employer] Patient Portal on the ClickSquared. Simply click on Health Records under [employer] and then click on the BriefCam logo. HOW TO SAFELY DISPOSE OF PRESCRIPTION [...] Call your local pharmacy or go to [email or web address] to find one close to you.3.Make use of household items: Use cat litter or old coffee grounds to dispose medications if other options arenot available. Mix your drugs with these household products, seal them in an airtight container andthrow it into the garbage. Call [facility]: [phone] to be sure your drugs can be [...] aware that I should contact my doctor. Patient/Car Repairer Pullman Signature: Date/Time: Relationship to Patient: Witness Name/Signature: Date/Time: [facility]04-01-2024 Note ORIGINAL EXAMINATION: TWO XRAY VIEWS OF [...] Sign Date: 09/26/2023 9:41:45 PM Ordering Provider: [facility]03-25-2024 History of Present illness Narrative* Yodit Baker, [...] Session Stop Time : 1141 Claire Harrington, UAM Baker PT documented in this encounterCincinnati [facility] Center03-21-2024 Miscellaneous Notes* Telephone Encounter - Otilia Douglas RN - 09/15/2023 4:05 PM EDT Sent to provider with medication request. documented in this encounterCincinnati Va Medical Center03-21-2024 Miscellaneous Notes* Telephone Encounter - Otilia Douglas RN - 09/15/2023 4:00 PM EDT Per Pt MyChart message from 09/14/23,I had [...] you. Otilia Douglas RN. documented in this encounterCincinnati Va Medical Center03-19-2024 History of Present illness Narrative* Louis Valencia [...] & Elbow Surgeon Department of Orthopaedic Surgery [facility] Medical Decision Making: Medical Decision Making Level: 1 - N/A documented in this encounterCincinnati Va Medical Center03-15-2024 Instructions* Patient Instructions* Sam Khan APRN.CNP - 09/09/2023 3:19 PM EDT Goal is for the tylenol use to be 4000 mg or less in 24 hours. Keep icing the shoulder. Okay to keep taking the ibuprofen. We will refill the percocet. documented in this encounterCincinnati Va Medical Center03-15-2024 History of Present illness Narrative* Sam Khan [...] 10/14/2023) for recheck on pain. Sam Khan APRN-ORACLE REPORTS DEVELOPER documented in this encounterCincinnati Va Medical Center03-11-2024 History of Present illness Narrative* Yodit Baker, PT - 09/05/2023 11:19 AM EDT Program_ID:[id number] Access Code: [email or web address] URL: [email or web address] Date: 09-05-2023 Prepared By: Yodit Baker Program [...] of Care: created on 09/05/23 through 10/17/23 [place] in home exercise program. 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 Patient education as noted. Self-Fdc Management: 1: discussed avoiding guarding with codman [...] 1140 Yodit Baker PT documented in this encounterCincinnati Va Medical Center03-08-2024 Miscellaneous Notes* Telephone Encounter - Alis Hanna - 09/02/2023 2:47 PM EST Pt will run out of pain medication on Tuesday. I have put in a refill to be filled not until Tuesday. Last refill 09-01-23 documented in this encounterCincinnati Va Medical Center03-07-2024 Miscellaneous Notes* Telephone Encounter - Alis Hanna - 09/01/2023 8:14 AM EST Patient called requesting refill of post-op pain medication. Patients last known Refill Date: 08-29-23, date of surgery Patient Phone numbers: [phone] (home) Request is for script(s) to be escript to pharmacy. Alis Sanchez documented in this encounterCincinnati Va Medical Center02-27-2024 Miscellaneous Notes* Telephone Encounter - Sam Khan [...] procedure. Shanon Lowe RN documented in this encounterCincinnati Va Medical Center02-22-2024 History of Present illness Narrative* Radha Neri APRN.CNP - 08/18/2023 12:08 PM ESTSummary: anesthesia Patient [...] if she develops fever. documented in this encounterCincinnati Va Medical Center02-22-2024 Instructions* Patient Instructions* Radha Neri APRN.CNP - 08/18/2023 9:24 AM EST PATIENT PREOPERATIVE INSTRUCTIONS Louis Valencia,* has scheduled you for your procedure at this surgery center: [facility]. [address] [place] [address], [address], [place], [facility] Please read below carefully for your personalized [...] surgery. - YOU MUST HAVE A RESPONSIBLE SEAMLESS TUBE DRAWER TAKE YOU HOME. A MANAGER URGENT CARE, CAB OR UBER SEAMLESS TUBE DRAWER CANNOT BE MADEA RESPONSIBLE SEAMLESS TUBE DRAWER. - We also require that a responsible [...] Advance Directive, please fax a copy to [phone] or email to for it to be [...] getting your vaccine and date of surgery Radhaindio Neri APRN.CNP 08/18/23 documented in this encounterCincinnati Va Medical Center02-22-2024 History and physical note * Radha Neri [...] Initiated: No labs ordered per surgeon in [facility] I spent a total of 40 minutes on the date of the service which included preparing to see the patient, zkpe-sr-rrrd patient care, completing clinical documentation, obtaining and/or [...] Negative for: dysuria, hematuria and renal failure. DISBURSING OFFICER: Negative for: vaginal bleeding. 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 No issues in [...] Cancer Maternal Grandfather BLADDER Heart Maternal Grandfather DE & EMPHYSEMA Social History Tobacco Use Smoking [...] (1.65m) Wt 122 lb (55.3kg) SpO2 98% [facility]07/07/2008 BMI 20.30 kg/(m^2). Diagnostic tests reviewed for [...] 372 QTC Calculation (Bazett) 561 Calculated P Brantley 60 Calculated R Brantley 81 Calculated T Brantley 53 Impression SINUS TACHYCARDIA POSSIBLE LEFT ATRIAL ENLARGEMENT NONSPECIFIC ST AND T WAVE ABNORMALITY ABNORMAL ECG No results found for this or any previous visit (from the past 21802 hour(s)). Instructions Given to Patient: Instructions located in the after visit summary. Patient given verbal and written preop instructions and voices comprehension and compliance. SIGNATURE: Radha Neri APRN.CNP PATIENT NAME: Pat Medina DATE: August 17, 2023 TIME: 8:56 AM PAGER/CONTACT #: documented in this encounterCincinnati Va Medical Center02-16-2024 Miscellaneous Notes* Telephone Encounter - Amber Minaya [...] as discussed during visit documented in this encounterCincinnati Va Medical Center02-15-2024 Miscellaneous Notes* Telephone Encounter - Tori Jc [...] treatment plan. TIKA Degroot documented in this encounterCincinnati Va Medical Center02-15-2024 Instructions* Patient Instructions* Tori Jc - 08/11/2023 [...] you press the inhaler. Ask your health foster care social worker for more information on these devices. documented in this encounterCincinnati Va Medical Center02-15-2024 History of Present illness Narrative* Tori Jc [...] <AGE 14 1985 Tonsillectomy ALLERGIES Pamprin Multi-Symptom [Ghxluoviuslkp-Dauqnada-Voywpaw], Buspar [Buspirone], Codeine, Lamotrigine, Nitrofurantoin Macrocrystal, and [...] Cancer Maternal Grandfather BLADDER Heart Maternal Grandfather DE & EMPHYSEMA Social History Tobacco Use Smoking [...] - Prednisone Taper TIKA Degroot TEACHING PROVIDER (Physician/PA/MACHINE SIGN WRITER) NOTE OF PERSONAL INVOLVEMENT IN CARE: I have personally seen and examined the patient and performed the medical decision-making components. I have reviewed the Advanced Practice Registered Nurse (MACHINE SIGN WRITER) Student's documentation and verified the findings in the note as written. Any additions or changes are noted in bold/italics. Signature: Pennie Clemente Date: 08/11/2023 Time: 9:18 AM documented in this encounterCincinnati Va Medical Center02-13-2024 History of Present illness Narrative* Louis Valencia [...] negative Drop arm test: negative Biceps/joss Signs Cambridge's test: positive Clicking/popping: positive Speed's test: positive [...] & Elbow Surgeon Department of [facility]opaedic [facility] documented in this encounterCincinnati [facility] Medical Center02-09-2024 History of Present illness Narrative* Sam Khan APRN.ORACLE REPORTS DEVELOPER - 08/05/2023 2:09 PM EST SUBJECTIVE Pat [...] suspiciousactivity was identified. 08/05/2023 by Sam Khan APRN.CNP [...] Sam Khan APRN-LUIS DANIEL documented in this encounterCincinnati Va Medical Center02-05-2024 Miscellaneous Notes* Telephone Encounter - Naty Isabel LPN - 08/01/2023 4:04 PM EST Patient returned call and went over notes from Dr Norman with understanding. Patient said she hadto reschedule her appt due to being ill and moved to 08/09/[address] Valencia. Scheduled appt with [facility] for tomorrow morning at 740 am. * [...] up to 14 days. Do not start beforeFe2023. Authorizing Provider: MAILE NORMAN MD * Telephone Encounter - Navid Rowell Pat M - 07/29/2023 10:39 AM EST Pharmacy verified in [facility] Patient has been identified by name and [...] advise. Pat Shoemaker Pss documented in this encounterCincinnati Va Medical Center02-05-2024 History of Present illness Narrative* Chris Geronimo PA - 08/01/2023 8:35 AM EST This note was created using Grow the Planet. Subjective Pat Medina is a 43 year [...] No vomiting or diarrhea. Has been taking qhmu-vvu-glrntvl medication with minimal improvement. No other complaint. [...] <AGE 14 1985 Tonsillectomy ALLERGIES Pamprin Multi-Symptom [Djtycoitzcjem-Djssjywd-Judugxg], Buspar [Buspirone], Codeine, Lamotrigine, Nitrofurantoin Macrocrystal, and [...] Cancer Maternal Grandfather BLADDER Heart Maternal Grandfather DE & EMPHYSEMA Social History Tobacco Use Smoking [...] Wt 59.9 kg (132 lb) LMP 05/07/2009 GeG529% BMI 21.97 kg/m Physical Exam Vitals and [...] ER evaluation. SAAD Gamez documented in this encounterCincinnati Va Medical Center12-21-2023 History of Present illness Narrative* Antonio Rios MD - 06/16/2023 9:22 AM EST Antonio Rios MD Department of Orthopaedics Orthopaedics [address] [facility] [address] Dept: [phone] Dept June 16, 2023 CHIEF COMPLAINT: Pain [...] her shoulder. She had an MRI at [facility] but did not bring it. States it [...] DATE OF EXAM: Mar 11 2023 3:01PM [facility] 0242 - MRI SHOULDER WO/W IVCON [...] Cancer Maternal Grandfather BLADDER Heart Maternal Grandfather DE & EMPHYSEMA Social History: Social History Tobacco [...] medications for this visit. Allergies: Pamprin Multi-Symptom [Otfbdjgfeosxr-Iaubffzu-Aydhzwv], Buspar [Buspirone], Codeine, Lamotrigine, Nitrofurantoin Macrocrystal, and [...] via US mail. Charles Stanton [address] [facility] [address] Maile Norman MD [address] [facility] [address] Antonio Rios MD documented in this encounterCincinnati Va Medical Center11-29-2023 Miscellaneous Notes* Telephone Encounter - Sam Khan APRN.CNP - 05/25/2023 4:36 PM EST PDMP website checked and validated. All prescriptions have been APPROPRIATELY filled. No suspiciousactivity was identified. 05/25/2023 by Sam Khan APRN.CNP * Telephone Encounter - Sharmin Monge LPN - 05/25/2023 10:01 AM EST Patient [...] Not applicable Please advise. Thank you. Sharmin Mnoge LPN. documented in this encounterCincinnati Va Medical Center11-20-2023 Miscellaneous Notes* Telephone Encounter - Karen Shore LPN - 05/16/2023 12:43 PM EST Message left on voicemail to call office for update. Karen Shore LPN documented in this encounterCincinnati Va Medical Center11-17-2023 History of Present illness Narrative* Kimberly Caruso - 05/13/2023 3:37 PM EST POPULATION HEALTH NAVIGATION OUTREACH Action/FYI Pt scheduled Patient Identified by Name and : YES, via phone Outreach Outcome/Action Spoke to patient / parent / legal guardian: Patient scheduled Did you use a PCP flex slot to schedule this appointment? No Reason for Outreach Care Gap or Scheduling/Wellness visits Payer: Payor: [place] MEDICAID / Plan: [facility] MEDICAID / Product Type: Medicaid / Care [...] 13, 2023 3:37 PM documented in this encounterCincinnati Va Medical Center11-16-2023 Miscellaneous Notes* Telephone Encounter - Karen Mckee [...] refills Britt Murray LPN documented in this encounterCincinnati Va Medical Center11-16-2023 Miscellaneous Notes* Telephone Encounter - Karen Mckee APRN.V GROOVE CUTTER - 05/12/2023 2:31 PM EST Pain management visit today advised Pat Adam: Discussed the guidelines of pain management and [...] note. Aline Gomes RN documented in this encounterCincinnati Va Medical Center11-16-2023 Miscellaneous Notes* Telephone Encounter - Kimberly England - 05/12/2023 10:13 AM EST The referral to Orthopaedics for Chronic right shoulder pain, Labral tear of shoulder, degenerative, right has been submitted via the [facility] Internal Referral Request form on the [facility] Appointment Portal. Confirmation # [id number] Kimberly England documented in this encounterCincinnati Va Medical Center11-16-2023 History of Present illness Narrative* Vince Heck [...] The patient is nervous/anxious. * Charles Stanton APRN.ORACLE REPORTS DEVELOPER - 05/12/2023 9:00 AM EST Images from the original note were not included. [facility] [place] [facility] Today's Date: 05/12/2023 Last Visit: N/A [...] and validated on 05/12/2023 by Charles Stanton APRN.ORACLE REPORTS DEVELOPER All prescriptions have been APPROPRIATELY filled. No [...] BURSITIS. INTACT ROTATOR CUFF AND GLENOID LABRUM. Color Dipper: PSCB Transcribe Date/Time: Mar 11 2023 3:11P Dictated by : TYESHA MARX MD This examination was interpreted and the report reviewed and electronically signed by: TYESHA MARX MD on Mar 11 2023 3:15PM EST Results-Findings * * *Final Report* * * DATE OF EXAM: Mar 11 2023 3:01PM [facility] 0242 - MRI SHOULDER WO/W IVCON [...] Medications Interventional Procedures: None Studies: None Functional Judaism: NONE Referrals: No additional considerations at present Orthopedics ([phone]) Follow-up: prn with Depending on response to [...] decision making from today's date. Charles Stanton APRN.LUIS DANIEL Pain Management [facility] documented in this encounterCincinnati Va Medical Center11-09-2023 Miscellaneous Notes* Telephone Encounter - Shanon Lowe [...] ECG Violeta Howard RN documented in this encounterCincinnati Va Medical Center11-06-2023 Miscellaneous Notes* Telephone Encounter - Michelle Monique [...] Provider: KEITH DIAZ PA-C documented in this encounterCincinnati Va Medical Center11-04-2023 History of Present illness Narrative* Rick Anderson MD - 04/30/2023 9:50 AM EDT This note was created using Med fusionter. Subjective Patient presents with: Palpitations: Immunizations: Flu [...] GYNECOLOGY Rick Anderson MD documented in this encounterCincinnati Va Medical Center11-04-2023 History of Present illness Narrative* Older, Anny, MACHINE SIGN WRITER.ORACLE REPORTS DEVELOPER - 04/30/2023 9:40 AM EDT CC: Patient [...] Anny Pham APRN.LUIS DANIEL documented in this encounterCincinnati Va Medical Center10-30-2023 Miscellaneous Notes* Telephone Encounter - Aline Gomes RN - 04/25/2023 6:35 PM EDT Spoke with patient. Given message from provider's office. Patient verbalizes understanding. Aline Gomes RN * Telephone Encounter - Karen Shore LPN - 04/25/2023 6:35 PM EDT Spoke with Binu/Pharmacist at [facility], states the escripted RX foe [...] 5:38 PM EDT Francisco, pharmacist @ [facility] calling to say patient brought printed [...] 04/25/2023 4:52 PM EDT Francisco Pharmacist Ayo Ravindra Arambulaoster called and is notified of providers message and instructions. Gave a verbal order of medication as the order had been printed. He voices understanding. Otilia Douglas, RN * Telephone Encounter - Sam Khan [...] OV. Aline Gomes RN documented in this encounterCincinnati Va Medical Center10-30-2023 Miscellaneous Notes* Addendum Note - Sam Khan APRN.CNP - 04/25/2023 3:43 PM EDTAddended by: SAM KHAN on: 04/25/2023 03:43 PM Modules accepted: Orders documented in this encounterCincinnati Va Medical Center10-30-2023 History of Present illness Narrative* Sam Khan [...] like a referral to ortho at [facility] to discuss options HPI Pat Medina is [...] Sam Khan APRN-LUIS DANIEL documented in this encounterCincinnati Va Medical Center10-30-2023 Instructions* Patient Instructions* Sujatha Simpson LPN - [...] treated. A physician, nurse practitioner or physician service assistant may treat with a short course [...] women if symptoms resolve. documented in this encounterCincinnati Va Medical Center10-16-2023 Miscellaneous Notes* Telephone Encounter - Dai Mccall - 04/11/2023 1:15 PM EDT Tried calling patient three times, kept getting the busy signal so no message could be left. Left patient a Answerologyhart message regarding this appointment reschedule. documented in this encounterCincinnati Va Medical Center10-04-2023 Miscellaneous Notes* Telephone Encounter - Oksana Weldon APRN.CNP - 03/30/2023 4:11 PM EDT Patient notified of CBC, voicemail, advised probable viral, monitor symptoms, if worsening to ER, other alarcon should clear in next few days. Follow up with Dr You as needed. Oksana Weldon APRN.CNP documented in this encounterCincinnati Va Medical Center10-04-2023 History of Present illness Narrative* Daisha Harper [...] 30, 2023 8:38 AM documented in this encounterCincinnati Va Medical Center09-22-2023 Miscellaneous Notes* Telephone Encounter - Maile Norman MD - 03/18/2023 7:04 PM EDT Noted plans to continue pain med till see pain management per sc[facility] mobilitythe institute of livingt messages between patient and Sam. The following [...] you. Sharon Sutherland RN documented in this encounterCincinnati Va Medical Center09-19-2023 Hospital Discharge instructions Patient Education 03/15/2023 11:20:46 [...] shoulder or upper arm Fever or chills [phone] The [employer]. [address] [place] [address], [place] [address]. All rights reserved. This information is not intended as a substitute for professional medical care. Always follow yourhealthcare professional's instructions. Follow Up Care 03/15/2023 09:47:09 With:MAILE NORMAN MD Address: [address] [facility] [place] [id number]- When:2-4 days [facility] 09-19-2023 Note Discharge Instructions Thank you for allowing [facility] to assist you with your healthcare needs. [...] MD When Within 2-4 days Where: [address] [facility] [place] [id number]- Allergies LaMICtal Pamprin Maximum Pain codeine Medications [...] may report side effects to FDA at 2-890-SAV-3444. What other drugs will affect orphenadrine? Taking orphenadrine with other drugs that make you sleepy or slow your breathing can cause dangerous side effects or . Ask your doctor before taking a sleeping pill, narcotic pain medicine, prescription cough medicine, a muscle relaxer, or medicine for anxiety, depression, or seizures. Other drugs may interact with orphenadrine, including prescription and tdfp-eec-ywmhxbl medicines, vitamins, and herbal products. Tell each [...] to ensure that the information provided by [employer]. ('Multum') is accurate, up-to-date, and complete, but no guarantee is made to that effect. Drug information contained herein may be time sensitive. [employer] information has been compiled for use by healthcare practitioners and consumers in the [place] and therefore [employer] does not warrant that uses outside of the [place] are appropriate, unless specifically indicated otherwise. [employer] drug information does not endorse drugs, diagnose patients or recommend therapy. [employer] drug information isan informational resource designed to [...] effective or appropriate for any given patient. [employer] does not assume any responsibility for any aspect of healthcare administered with the aid of information [employer] provides. The information contained herein is not intended to cover all possible uses, directions, precautions, warnings, drug interactions, allergic reactions, or adverse effects. If you have questions about the drugs you are taking, check with your doctor, nurse or pharmacist. Copyright 9477-8205 [employer]. Version: 7.01. Revision Date: 02/02/2023. tramadol (TRAM a dol) Preston Blum, TraMADol Hydrochloride ER (Eqv-Ryzolt), TraMADol Hydrochloride ER [...] The extended-release form of tramadol is for zhjrxh-tem-oxyzt treatment of pain. This form of tramadol [...] may report side effects to FDA at 7-859-KZM-9319. What other drugs will affect tramadol? You [...] drugs may affect tramadol, including prescription and ljie-iut-ojrdgxj medicines, vitamins, and herbal products. Not all [...] may affect tramadol. This includes prescription and iaqk-tkk-bctuunp medicines, vitamins, and herbal products. Not all [...] to ensure that the information provided by [employer]. ('[employer]') is accurate, up-to-date, and complete, but no guarantee is made to that effect. Drug information contained herein may be time sensitive. [employer] information has been compiled for use by healthcare practitioners and consumers in the [place] and therefore [employer] does not warrant that uses outside of the [place] are appropriate, unless specifically indicated otherwise. [employer] drug information does not endorse drugs, diagnose patients or recommend therapy. [employer] drug information isan informational resource designed to [...] effective or appropriate for any given patient. [employer] does not assume any responsibility for any aspect of healthcare administered with the aid of information [facility] provides. The information contained herein is not intended to cover all possible uses, directions, precautions, warnings, drug interactions, allergic reactions, or adverse effects. If you have questions about the drugs you are taking, check with your doctor, nurse or pharmacist. Copyright 8661-0910 [employer]. Version: 24.01. Revision Date: 01/28/2023. Education Materials Shoulder Sprain [...] shoulder or upper arm Fever or chills 4418-6149 The [employer]. [address] [place], [place] [address]. All rights reserved. This information is not intended as a substitute for professional medical care. Always follow yourhealthcare professional's instructions. Additional Information VACCINATE! IT SAVES LIVES! Members of the community who have not yet received the COVID-19 vaccine and would like to receive it can visit one of [facility] vaccine clinics. There are many vaccine clinic locations within the [facility] [address]. For locations and available times, please visit www.gettheshot.coronavirus.[place].gov/. It is important to note that some COVID mobile vaccine clinics are held outdoors and may be canceled in rainy or stormy conditions. To learn more about pediatric vaccinations (ages 5-11), we invite you to visit the [facility] webpage. https://www.[facility].org/pages/4219-Zgpml-Oldlnsfsbux-Hzhrhplprp-Zswhw-Qms stions.htmlTo learn more about the COVID-19 vaccine, we invite you to visit the CDC website for a list of frequently asked questions. https://www.cdc.gov/coronavirus/2019-ncov/vaccines/faq.html [facility] Patient Portal Access Instructions: Stay connected with your healthcare team and access your personal medical information anytime with the [facility] Patient Portal. If you would like a full copy of your medical records please contact the [facility] Medical Records Department Tuesday through Tuesday between 8a.m. and 4:30p.m. Please follow the directions below to access the portal: 1.Access the email account you provided upon registration to the [facility].2.Look for an invitation email from [facility].3.Open the email and access the invitation link: Accept Invitation to [employer]4.Fill in the required moore to create your account. Sign into [email or web address] MD with your username and password that you [...] you will allow to register on the [employer] Patient Portal for access to your information. You can also access the [employer] Patient Portal on the ClickSquared. Simply click on Health Records under Fandeavor and then click on the BriefCam logo. HOW TO SAFELY DISPOSE OF PRESCRIPTION [...] Call your local pharmacy or go to [email or web address] to find one close to you.3.Make use of household items: Use cat litter or old coffee grounds to dispose medications if other options arenot available. Mix your drugs with these household products, seal them in an airtight container andthrow it into the garbage. Call [facility]: [phone] to be sure your drugs can be [...] aware that I should contact my doctor. 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09-15-2023 History of Present illness Narrative* Charles Ortiz RT(R) - 03/11/2023 2:20 PM EDT Radiology Service [...] 2023 TIME: 2:25 PM documented in this encounterCincinnati [facility] Center09-11-2023 Miscellaneous Notes* Telephone Encounter - Shanon Lowe RN - 03/07/2023 11:53 AM EDT Message left on pt's VM with update below. Pt advised to contact PCP office for any questions or concerns. Shanon Lowe RN documented in this encounterCincinnati Va Medical Center09-11-2023 Miscellaneous Notes* Telephone Encounter - Sam Khan APRN.CNP - 03/07/2023 10:57 AM EDT I am just now getting a chance to fill this, refill sent, please let her know. Sam Khan APRN.CNP PDMP website checked and validated. All prescriptions have been APPROPRIATELY filled. No suspiciousactivity was identified. 03/07/2023 by Sam Kahn APRN.LUIS DANIEL * Telephone Encounter - Violeta [...] tablet by mouth daily at bedtime. 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 Call ext [phone] with Sam's response to above. documented in this encounterCincinnati Va Medical Center08-22-2023 History of Present illness Narrative* Lizzy Hamlin - 02/15/2023 3:19 PM EDT POPULATION HEALTH NAVIGATION OUTREACH Action/[facility] [place] Called pt to schedule an appt in [...] 15, 2023 3:19 PM documented in this encounterCincinnati Va Medical Center08-15-2023 History of Present illness Narrative* Sam Khan APRN.ORACLE REPORTS DEVELOPER - 02/08/2023 12:17 PM EDT SUBJECTIVE Pat Medina is a 43 year old female here today for acute concern. Chief Complaint Patient presents with: Shoulder Injury: of right shoulder and requesting a MRI with contrast. This was a work related injury but due to paperwork issues the claim was closed. 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 Consult: pain [...] date of the injury. 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 Has done PT. Has seen Dr. Traore with [facility] and Dr. Stapleton with [facility] for orthopaedics. Has had an MRI without contrast, was recommended she needs contrast MRI to better show the issues in the shoulder. Wants to see pain management in the mean time. Has done steroids. On muscle relaxers. Seen in ER at [facility] 01/25 because pain was so bothersome. Workers comp case, case was closed. 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 Her medications were reviewed today and her [...] NSAIDs. She is aware that since her worker's comp case has been closed that the testing and visit for today may not be covered by [employer] and that there is also a possibility [...] suspiciousactivity was identified. 02/08/2023 by Sam Khan APRN.CNP [...] Sam Khan APRN-LUIS DANIEL documented in this encounterCincinnati Va Medical Center08-01-2023 Hospital Discharge instructions Patient Education 01/25/2023 13:11:26 ED Pain Management (05/2018)(CUSTOM) WELCOME Pain Management in our Emergency/Acute Care Facility Our staff understands that pain relief is important when someone is hurt or needs emergency care. However, providing ongoing pain relief is often complex. We recommend this be done through your primary health care provider such as your family doctor or rn pain management. Because mistakes or misuses of pain medication [...] show a valid photo ID (like a van driver helper's license) when you check into the emergency/acute [...] or other controlled substance, we check the [place] Automated Rx Reporting system (OARRS) or a [...] [facility] at [phone]. It is against the law to attempt to obtain controlled substance pain medicines by deceiving the health care provider caring for you. This can include getting multiple prescriptions from more than oneprovider or using someone else s name to obtain a prescription. Follow Up Care 01/25/2023 12:52:00 With:Keep your appointment on 02/01 with your orthopedic surgeon Address: When:2-4 days With:MAILE NORMAN MD Address: [address] [place] [address]- When:2-4 days [facility] 08-01-2023 Note Discharge Instructions Thank you for allowing [facility] to assist you with your healthcare needs. [...] NORMAN MD When Within 2-4 days Where: [address], [place] [id number]- Allergies LaMICtal Pamprin Maximum Pain codeine Medications [...] pharmacies. Medication Leaflets cyclobenzaprine (norma holley) Lorix, Comfort Pac with Cyclobenzaprine, Fexmid What is [...] may report side effects to FDA at 3-081-HPT-5187. What other drugs will affect cyclobenzaprine? Using [...] drugs may affect cyclobenzaprine, including prescription and gkdy-pin-axbxinx medicines, vitamins, and herbal products. Not all [...] to ensure that the information provided by [employer]. ('Mult[employer]') is accurate, up-to-date, and complete, but no guarantee is made to that effect. Drug information contained herein may be time sensitive. [employer] information has been compiled for use by healthcare practitioners and consumers in the [place] and therefore [employer] does not warrant that uses outside of the [place] are appropriate, unless specifically indicated otherwise. [employer]'s drug information does not endorse drugs, diagnose patients or recommend therapy. [employer] drug information isan informational resource designed to [...] effective or appropriate for any given patient. [facility] does not assume any responsibility for any aspect of healthcare administered with the aid of information [facility] provides. The information contained herein is not intended to cover all possible uses, directions, precautions, warnings, drug interactions, allergic reactions, or adverse effects. If you have questions about the drugs you are taking, check with your doctor, nurse or pharmacist. Copyright 5850-5370 [facility] HospitalMedisse. Version: 5.. Revision Date: 03/22/2018. acetaminophen and oxycodone (a [...] may report side effects to FDA at 5-583-YJM-5508. What other drugs will affect acetaminophen and [...] affect acetaminophen and oxycodone, including prescription and sdxh-ape-ngudgua medicines, vitamins, and herbal products. Not all [...] to ensure that the information provided by [employer]. ('Multum') is accurate, up-to-date, and complete, but no guarantee is made to that effect. Drug information contained herein may be time sensitive. [employer] information has been compiled for use by healthcare practitioners and consumers in the [place] and therefore [employer] does not warrant that uses outside of the [place] are appropriate, unless specifically indicated otherwise. [employer] drug information does not endorse drugs, diagnose patients or recommend therapy. [employer] drug information isan informational resource designed to [...] effective or appropriate for any given patient. [employer] does not assume any responsibility for any aspect of healthcare administered with the aid of information [employer] provides. The information contained herein is not intended to cover all possible uses, directions, precautions, warnings, drug interactions, allergic reactions, or adverse effects. If you have questions about the drugs you are taking, check with your doctor, nurse or pharmacist. Copyright 3154-1542 [employer]. Version: 20.. Revision Date: 08/01/2020. Education Materials WELCOME Pain Management in our Emergency/Acute Care Facility Our staff understands that pain relief is important when someone is hurt or needs emergency care. However, providing ongoing pain relief is often complex. We recommend this be done through your primary health care provider such as your family doctor or rn pain management. Because mistakes or misuses of pain medication [...] show a valid photo ID (like a van driver helper's license) when you check into the emergency/acute [...] or other controlled substance, we check the [place] Automated Rx Reporting system (OARRS) or a [...] [facility] at [phone]. It is against the law to attempt [...] to receive it can visit one of [facility] vaccine clinics. There are many vaccine clinic locations within the [facility] [address]. For locations and available times, please visit www.gettheshot.coronavirus.[place].gov/. It is important to note that some COVID mobile vaccine clinics are held outdoors and may be canceled in rainy or stormy conditions. To learn more about pediatric vaccinations (ages 5-11), we invite you to visit the [facility] webpage. https://www.[facility].org/pages/3888-Heboq-Yxxnmpwraro-Gtonrhldbh-Oenqn-Edt stions.htmlTo learn more about the COVID-19 vaccine, we invite you to visit the CDC website for a list of frequently asked questions. https://www.cdc.gov/coronavirus/2019-ncov/vaccines/faq.html [employer] Patient Portal Access Instructions: Stay connected with your healthcare team and access your personal medical information anytime with the [employer] Patient Portal. If you would like a full copy of your medical records please contact the [facility] Medical Records Department Tuesday through Tuesday between 8a.m. and 4:30p.m. Please follow the directions below to access the portal: 1.Access the email account you provided upon registration to the [facility].2.Look for an invitation email from [facility].3.Open the email and access the invitation link: Accept Invitation to [employer]4.Fill in the required moore to create your account. Sign into www.Fetch MD with your username and password that you [...] you will allow to register on the [employer] Patient Portal for access to your information. You can also access the [employer] Patient Portal on the [employer] lala. Simply click on Health Records under Allocabta and then click on the Nicho logo. [...] Call your local pharmacy or go to http://bit.MarginLeft/9W0Uy9e to find one close to you.3.Make use of household items: Use cat litter or old coffee grounds to dispose medications if other options arenot available. Mix your drugs with these household products, seal them in an airtight container andthrow it into the garbage. Call [facility]: [phone] to be sure your drugs can be [...] aware that I should contact my doctor. 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 Protocols used: Anxiety and Panic Qwybqj-ABYKV-TJ documented in this encounterCincinnati Va Medical Center07-17-2023 History of Present illness Narrative* Maile Norman MD - 01/10/2023 3:43 PM EDT This note was created using [employer]riter. Subjective Pat Medina is a 42 year [...] management. Maile Norman MD documented in this encounterCincinnati Va Medical Center06-13-2023 Miscellaneous Notes* Telephone Encounter - Maureen Arroyo [...] for pain management- and their phone # [phone]. Phoned patient back and given phone # [...] as discussed in office. documented in this encounterCincinnati Va Medical Center06-07-2023 History of Present illness Narrative* Constanza Stafford [...] 01, 2022 2:00 PM documented in this encounterCincinnati Va Medical Center06-07-2023 History of Present illness Narrative* Gayla Ayala APRN.ORACLE REPORTS DEVELOPER - 12/01/2022 1:45 PM EDT 12/01/2022 Patient [...] Temporomandibular joint disorders, unspecified ALLERGIES Pamprin Multi-Symptom [Mwkuemxddocyn-Iskkljfu-Mqwgjdr], Buspar [Buspirone], Codeine, Lamotrigine, Nitrofurantoin Macrocrystal, and [...] which included preparing to see the patient, jplv-qf-edxq patient care, completing clinical documentation, obtaining and/or reviewing separately obtained history, performing a medically appropriate examination, counseling and educating the pat ient/family/caregiver, and ordering medications, tests, or procedures. documented in this encounterCincinnati Va Medical Center06-07-2023 Miscellaneous Notes* Telephone Encounter - Gayla Ayala APRN.CNP - 12/01/2022 10:39 AM EDT Reviewed. Gayla Ayala APRN.CNP * Telephone Encounter - Shanon Lowe RN [...] Pt agreeable to be seen by Gayla Newmanlogaretha CARY today. Shanon Lowe RN documented in this encounterCincinnati Va Medical Center03-24-2023 Miscellaneous Notes* Telephone Encounter - Violeta Aguirre LPN - 09/17/2022 10:24 AM EDT Patient notified of results and provider's instructions. Patient verbalizes understanding. Violeta Aguirre LPN * Telephone Encounter - Maile Norman MD - 09/17/2022 9:50 AM EDT Last seen by Kraen Apr 2022. No follow up scheduled yet [...] feeling. Would like prescriptio n sent to [facility]. Please advise. documented in this encounterCincinnati Va Medical Center03-16-2023 History of Present illness Narrative* Pennie Clemente, RIGOBERTO.ORACLE REPORTS DEVELOPER - 09/09/2022 10:46 AM EDT Subjective Cough [...] <AGE 14 1986 Tonsillectomy ALLERGIES Pamprin Multi-Symptom [Tjawqzltftzxi-Ghdotyub-Rjduige], Buspar [Buspirone], Codeine, Lamotrigine, Nitrofurantoin Macrocrystal, and [...] Cancer Maternal Grandfather BLADDER Heart Maternal Grandfather DE & EMPHYSEMA Social History Tobacco Use Smoking [...] illness Pennie Clemente APRN.CNP documented in this encounterCincinnati Va Medical Center03-16-2023 Instructions* Patient Instructions* Pennie Clemente APRN.ORACLE REPORTS DEVELOPER - 09/09/2022 10:46 AM EDT ASSESSMENT/PLAN: 1. [...] Discussed expected course of illness Pennie Clemente APRN.ORACLE REPORTS DEVELOPER Beginning Home Isolation Isolation is used to [...] to your local emergency facility: Notify the single spindle screw machine operator that you are seeking care [...] or concerning to you. 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 Advised to go back to express care for evaluation may need COVID and influenza testing done. Patient said she may go back a little later or first thing morning. documented in this encounterCincinnati Va Medical Center02-15-2023 Miscellaneous Notes* Telephone Encounter - Otilia Douglas [...] nicotine patches and gum called into [facility] in [place] for her. She state she will need high dose of the patches. Please call Pt back and advise. documented in this encounterCincinnati Va Medical Center2023 History of Present illness Narrative* Kimberly Loya APRN.[facility] - 07/18/2022 11:21 AM EST CC: Patient [...] Wt 59.9 kg (132 lb) LMP 05/27/2009 [id number]% BMI 21.97 kg/m General appearance: alert, cooperative, [...] <AGE 14 1985 Tonsillectomy ALLERGIES Pamprin Multi-Symptom [Oeunsfstgfqlk-Caubpeig-Wtqbwmk], Buspar [Buspirone], Codeine, Lamotrigine, Nitrofurantoin Macrocrystal, and Promethazine-Phenylephrine MEDICATIONS acetaminophen (TYLENOL) 325 mg tablet Take 650 mg by mouth every 6 hours as needed. traZODone (DESYREL) 100 mg tablet Take 1 tablet by mouth daily at bedtime. FAMILY HISTORY Problem Relation Age of Onset Psychiatry Mother DEPRESSION Cervical Cancer Maternal Grandmother Hypertension Maternal Grandmother Cancer Maternal Grandfather BLADDER Heart Maternal Grandfather DE & EMPHYSEMA Social History Tobacco Use Smoking [...] Kimberly Loya APRN.LUIS DANIEL documented in this encounterCincinnati Va Medical Center12-06-2022 Miscellaneous Notes* Telephone Encounter - Rosa M Mercado RN - 06/01/2022 12:23 PM EST 05/31/2022 1003 Bonita Rnagel Good morning, Reached out to patient to get her scheduled, patient states that she is already scheduled for this at [facility]. Thank you, Bonita * Telephone Encounter - Rosa M Mercado RN - 05/27/2022 10:12 AM EST Email sent to the [facility] requesting an US guided breast biopsy for Pat. Rosa M Mercado RN documented in this encounterCincinnati Va Medical Center11-30-2022 History of Present illness Narrative* Kuldeep Ellis MD - 05/26/2022 6:53 AM EST FOLLOW UP VISIT NAME: Pat Medina [facility] NO.: [id number] DATE OF SERVICE: 05/25/2022 : 1980 REFERRING [...] and ultrasound on May 12, 2022 at [facility] which demonstrated: Ultrasound-a palpable abnormality listed as [...] biopsy. I asked for the images from [facility] to be noted in the [facility] system. The patient returns today for follow-up [...] get the proper images loaded in the [facility] system. Given the patient's anxiety and the fact that I will be out of the office for the next week I will attempt to have the biopsy performed by the breast radiologist as soon as possible in the [facility] system. Diagnoses: (N63.10) Mass of right breast, unspecified quadrant (primary encounter diagnosis) Return to Clinic: The patient is instructed to follow-up with me as needed. Kuldeep Ellis MD documented in this encounterCincinnati Va Medical Center11-17-2022 History of Present illness Narrative* Kuldeep Ellis [...] and ultrasound on May 12, 2022 at [facility] which demonstrated: Ultrasound-a palpable abnormality listed as [...] medications for this visit. ALLERGIES: Pamprin Multi-Symptom [Rnjfouuldywqx-Asvhifuq-Iltwsjd], Buspar [Buspirone], Codeine, Lamotrigine, Nitrofurantoin Macrocrystal, and [...] Cancer Maternal Grandfather BLADDER Heart Maternal Grandfather DE & EMPHYSEMA REVIEW OF SYMPTOMS: The review [...] I do not have the imaging from [facility] unfortunately today. The area that I [...] weeks. Kuldeep Ellis MD documented in this encounterCincinnati Va Medical Center11-17-2022 Nurse Note* Rosa M Mercado RN - [...] Rosa M Mercado RN documented in this encounterCincinnati Va Medical Center11-17-2022 Miscellaneous Notes* Telephone Encounter - Naty Isabel LPN - 05/13/2022 8:07 AM EST Patient calling asking about breast ultrasound results. Went over results, notes below from Dr Norman with understanding. Assisted with transfer to home care scheduler to get Gen surgery appt set up. * Telephone Encounter - Maile Norman MD - 05/12/2022 7:50 PM EST Order filed. Biopsy of lump recommended. * Telephone Encounter - Violeta Aguirre LPN - 05/12/2022 3:53 PM EST Pt completed diagnostic mammogram and ultrasound. They are in scanned documents. Please review. documented in this encounterCincinnati Va Medical Center11-15-2022 Miscellaneous Notes* Telephone Encounter - Sujatha Simpson LPN - 05/11/2022 1:55 PM EST Order have been faxed to [facility] at this time and they will call her to schedule appointment. * Telephone Encounter - Otilia Douglas RN - 05/11/2022 12:03 PM EST Pt called and is notified of providers message and instructions. Pt voices understanding. Pt askingif order can be sent to [facility]. Faxed orders to [phone]. Otilia Douglas RN * Telephone Encounter - [...] place.) * Telephone Encounter - Sam Khan APRN.LUIS DANIEL - 05/11/2022 9:05 AM EST Please let her know that unfortunately there is a long wait time for breast imaging. If she prefersshe can check and see if she is able to get in sooner to do it somewhere else like [facility] or [facility]. With her having the issues it would [...] detailed message on voicemail. documented in this encounterCincinnati Va Medical Center11-11-2022 Instructions* Patient Instructions* Karen Mckee APRN.CNS - 05/07/2022 11:39 AM EST documented in this encounterCincinnati Va Medical Center11-11-2022 History of Present illness Narrative* Karen Mckee [...] cancer - ICD9: V76.2, ICD10: Z12.4 Endorse DISBURSING OFFICER visit 3. Insomnia, unspecified type - ICD9: 780.52, ICD10: G47.00(primary diagnosis) - COMP METABOLIC PANEL - CBC + DIFF - TRAZODONE 100 MG TABLET 4. Breast pain - ICD9: 611.71, ICD10: N64.4 5. Mass of lower inner quadrant of right breast - ICD9: 611.72, ICD10: N63.14 Endorse checking this at her earliest convenience - [facility] RT - US BREAST LTD RT 6. Chronic right shoulder pain - ICD9: 719.41, 338.29, ICD10: M25.511, G89.29 HEP orthoinfo handout Meloxicam QD prn - CONSULT TO ORTHOPAEDICS - CONSULT TO PHYSICAL THERAPY 7. Encounter for well woman exam with routine gynecological exam - ICD9: V72.31, ICD10: Z01.419 - CONSULT TO COAL CUTTING MACHINE OPERATOR Did not complete labs today - endorse complete Scheduled mammogram, no other visit, stated needed to leave. Karen Mckee, MACHINE SIGN WRITER.V GROOVE CUTTER Medical Decision Making: Problems: Low: Acute, uncomplicated illness or injury, 2+ self-limited or minor problems and Stable chronic illness Data: Unique test(s) ordered: 2 Risk: Moderate: Drug management Medical Decision Making Level: 3 - Low documented in this encounterCincinnati Va Medical Center10-25-2022 Miscellaneous Notes* Telephone Encounter - Britt Murray LPN - 04/20/2022 8:21 AM EDT Pt requesting refill. JESUS: 05/12/21 NOV: 05/07/22 Last Refill: 03/05/22 Britt Murray LPN documented in this encounterCincinnati Va Medical Center10-17-2022 History of Present illness Narrative* Kimberly Caruso - 04/12/2022 12:01 PM EDT POPULATION HEALTH NAVIGATION OUTREACH Action/FYI Left voicemail Pt identified by name and : NO Outreach Outcome/Action Unable to reach patient: Left message [id number] message sent Did you use a PCP flex slot to schedule this appointment? No Reason for Outreach Care Gap or Scheduling/Wellness visits Payer: Payor: [place] MEDICAID / Plan: [facility] MEDICAID / Product Type: Medicaid / Care [...] 12, 2022 12:02 PM documented in this encounterCincinnati Va Medical Center09-20-2022 History of Present illness Narrative* Constanza Stafford, RT(R) - 03/16/2022 8:40 AM EDT Radiology [...] 16, 2022 8:36 AM documented in this encounterCincinnati Va Medical Center09-20-2022 History of Present illness Narrative* Pennie Clemente APRN.LUIS DANIEL - 03/16/2022 8:34 AM EDT Subjective HPI [...] <AGE 14 1986 Tonsillectomy ALLERGIES Pamprin Multi-Symptom [Tvzzfvfexxkvt-Zjzriqyl-Pvhhvgm], Buspar [Buspirone], Codeine, Lamotrigine, Nitrofurantoin Macrocrystal, and [...] Cancer Maternal Grandfather BLADDER Heart Maternal Grandfather DE & EMPHYSEMA Social History Tobacco Use Smoking [...] time. Pennie Clemente APRN.CNP documented in this encounterCincinnati Va Medical Center09-20-2022 Instructions* Patient Instructions* Pennie Clemente APRN.CNP - 03/16/2022 8:30 AM EDT ASSESSMENT/PLAN: 1. Splinter of finger - ICD9: 915.6, ICD10: S60.459A - XR DIGIT GENERAL 3V FRONTAL/LAT/OBL RIGHT - CONSULT PANEL TO ORTHOPAEDICS - warm water with epsom salt soaks 2-3 times daily, 15 minutes per time. Pennie Clemente APRN.CNP documented in this [facility]09-13-2022 Miscellaneous Notes* Telephone Encounter - Adriane Torres Ma - 03/09/2022 2:01 PM EDT not set up. Mychart sent * Telephone [...] you. Violeta Howard RN documented in this [facility] History of Present illness Narrative* Galo Bernal APRN.ORACLE REPORTS DEVELOPER - 01/20/2022 3:33 PM EDT Subjective HPI [...] <AGE 14 1985 Tonsillectomy ALLERGIES Pamprin Multi-Symptom [[id number]], Buspar [Buspirone], Codeine, Lamotrigine, Nitrofurantoin Macrocrystal, and [...] Cancer Maternal Grandfather BLADDER Heart Maternal Grandfather DE & EMPHYSEMA Social History Tobacco Use Smoking [...] or bulging. Nose: Congestion present. Mouth/Throat: Lips: [place]. Mouth: Mucous membranes are moist. Pharynx: Oropharynx [...] of care. This note was generated using Supportie software. It may contain errors in wording, punctuation, or spelling. Galo Bernal APRN.LUIS DANIEL documented in this encounter[facility] Instructions* Patient Instructions* Galo Bernal APRN.ORACLE REPORTS DEVELOPER - 01/20/2022 3:33 PM EDT How to [...] or concerning to you. documented in this encounterC[facility] History of Present illness Narrative* Galo Bernal [...] plan of care will be seen at [facility]. Galo Bernal APRN.CNP documented in this encounterC[facility] Miscellaneous Notes* Telephone Encounter - Amber Minaya LPN - 12/18/2021 12:02 PM EDT Pt called I asking for her blood type. She had a type and screen done in 08-10-05. Mailed to pt. Amber Minaya LPN documented in this encounterC[facility] History of Present illness Narrative* Constanza Stafford [...] 09, 2021 9:50 AM documented in this encounterC[facility] History of Past illness [...] of this encounter (statuses as of 10/14/2023) [facility] + Plan note No data available for this section [facility] Evaluation note* Diagnosis Jaw pain- Primary History of tooth extraction, unspecified edentulism class documented in this encounter [facility] Work Phone: Evaluation note* Diagnosis Procedure not carried out- Primary Procedure not carried out for other reasons documented in this encounter [facility] note* Diagnosis Viral illness- Primary Unspecified viral infection, in conditions classified elsewhere and of unspecified site documented in this encounter [facility] note* Diagnosis Encounter for screening mammogram for breast cancer documented in this encounter [facility] note* Diagnosis Encounter for long-term current use of medication- Primary Insomnia, unspecified type documented in this encounter [facility] note* Diagnosis Splinter of finger- Primary [facility] Diagnosis Insomnia, unspecified type [facility]* Diagnosis Insomnia, unspecified type- Primary Encounter for immunization Need for other specified prophylactic vaccination against single bacterial disease Screening for cervical cancer Screening for malignant neoplasm of the cervix Breast pain Mastodynia Mass of lower inner quadrant of right breast Chronic right shoulder pain Pain in joint, shoulder region Encounter for well woman exam with routine gynecological exam [facility] Breast pain- Primary Mastodynia Mass of lower inner quadrant of right breast Encounter for screening mammogram for breast cancer [facility] Diagnosis Mass of right breast, unspecified quadrant- Primary Mass of right breast, unspecified quadrant [facility] Diagnosis Mass of right breast, unspecified quadrant [facility] Diagnosis Mass of right breast, unspecified quadrant- Primary [facility] Diagnosis Abnormal finding on radiological examination of breast- Primary Other (abnormal) findings on radiological examination of breast [facility] Diagnosis Sore throat- Primary Acute pharyngitis URI, acute Acute upper respiratory infections of unspecified site [facility] Diagnosis Viral URI with cough- Primary Acute upper respiratory infections of unspecified site [facility] Diagnosis Panic attacks Panic 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 [facility] Diagnosis Coccydynia- Primary Other disorder of coccyx [facility] Diagnosis Panic attacks Panic 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 [facility] Diagnosis Tear of right glenoid labrum, subsequent encounter- Primary Chronic right shoulder pain Pain in joint, shoulder region [facility] Diagnosis Panic attacks Panic 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 [facility] Diagnosis Encounter for screening mammogram for breast cancer [facility] Tear of right glenoid labrum, subsequent encounter Chronic right shoulder pain Pain in joint, shoulder region [facility] Diagnosis Tear of right glenoid labrum, subsequent encounter Chronic right shoulder pain Pain in joint, shoulder region [facility] Diagnosis Tear of right glenoid [...] [facility] Diagnosis Acute cough- Primary Viral bronchitis Acute bronchitis Bicipital tendinitis of right shoulder Bicipital tenosynovitis [facility] Diagnosis Pre-op exam Preoperative examination, unspecified Bicipital tendonitis of right shoulder H/O chronic hepatitis Personal history of other diseases of digestive system Tobacco use disorder Marijuana use Cannabis abuse, unspecified Other migraine without status migrainosus, not intractable Congestive heart failure, unspecified HF chronicity, unspecified heart failure type (HCC) Bicipital tendinitis of right shoulder Bicipital tenosynovitis [facility] Diagnosis S/P shoulder surgery- Primary Other postprocedural status Tear of right glenoid labrum, subsequent encounter Chronic right shoulder pain Pain in joint, shoulder region [facility] Diagnosis S/P shoulder surgery- Primary Other postprocedural status Tear of right glenoid labrum, subsequent encounter [facility] Diagnosis Bicipital tendinitis of right shoulder- Primary Bicipital tenosynovitis [facility] Diagnosis S/P shoulder surgery- Primary Other postprocedural status [facility] Diagnosis Post-op pain- Primary Other acute postoperative pain Tear of right glenoid labrum, subsequent encounter S/P shoulder surgery Other postprocedural status [facility] Diagnosis S/P right rotator cuff repair- Primary [facility] Diagnosis Post-op pain Other acute postoperative pain Tear of right glenoid labrum, subsequent encounter S/P shoulder surgery Other postprocedural status [facility] Diagnosis Bicipital tendinitis of right shoulder- Primary Bicipital tenosynovitis [facility] Diagnosis Tear of right rotator [...] repair- Primary [facility] Diagnosis Post-op pain Other acute postoperative pain Chronic right shoulder pain Pain in joint, shoulder region Tear of right glenoid labrum, subsequent encounter S/P shoulder surgery Other postprocedural status [facility] Diagnosis Post-op pain Other acute postoperative pain Chronic right shoulder pain Pain in joint, shoulder region Tear of right glenoid labrum, subsequent encounter S/P shoulder surgery Other postprocedural status [facility] Diagnosis Bicipital tendinitis of right shoulder- Primary Bicipital tenosynovitis [facility] Diagnosis Post-op pain Other acute postoperative pain Chronic right shoulder pain Pain in joint, shoulder region Tear of right glenoid labrum, subsequent encounter S/P shoulder surgery Other postprocedural status [facility] Diagnosis Post-op pain Other acute postoperative pain Chronic right shoulder pain Pain in joint, shoulder region Tear of right glenoid labrum, subsequent encounter S/P shoulder surgery Other postprocedural status [facility] Diagnosis Post-op pain Other acute postoperative pain Chronic right shoulder pain Pain in joint, shoulder region Tear of right glenoid labrum, subsequent encounter S/P shoulder surgery Other postprocedural status [facility] Diagnosis Chronic right shoulder pain- [...] Other postprocedural status [facility] Diagnosis Chronic right shoulder pain- [...] acute postoperative pain [facility] Diagnosis Chronic right shoulder pain Pain in joint, shoulder region S/P shoulder surgery Other postprocedural status Post-op pain Other acute postoperative pain Tear of right glenoid labrum, subsequent encounter [facility] Diagnosis Pre-op exam Preoperative examination, unspecified [...] labrum, subsequent encounter [facility]* Diagnosis Pre-op exam Preoperative examination, unspecified Bicipital tendonitis of right shoulder H/O chronic hepatitis Personal history of other diseases of digestive system Tobacco use disorder Marijuana use Cannabis abuse, unspecified Other migraine without status migrainosus, not intractable Congestive heart failure, unspecified HF chronicity, unspecified heart failure type (HCC) Thrush- Primary Candidiasis of mouth [facility] Diagnosis Pre-op exam Preoperative examination, unspecified [...] [facility] Diagnosis Pre-op exam Preoperative examination, unspecified [...] therapeutic drug monitoring documented in this encounter [facility] note* Diagnosis Pre-op exam Preoperative examination, [...] bronchitis Acute cough [facility]* Diagnosis Pre-op exam Preoperative examination, unspecified Bicipital tendonitis of right shoulder H/O chronic hepatitis Personal history of other diseases of digestive system Tobacco use disorder Marijuana use Cannabis abuse, unspecified Other migraine without status migrainosus, not intractable Congestive heart failure, unspecified HF chronicity, unspecified heart failure type (HCC) Viral bronchitis Acute bronchitis Acute cough [facility]* Diagnosis Acute cough Pre-op exam Preoperative examination, unspecified Bicipital tendonitis of right shoulder H/O chronic hepatitis Personal history of other diseases of digestive system Tobacco use disorder Marijuana use Cannabis abuse, unspecified Other migraine without status migrainosus, not intractable Congestive heart failure, unspecified HF chronicity, unspecified heart failure type (HCC) documented [facility] this encounter [facility]* Diagnosis Fever, unspecified fever cause [facility] this [facility]* Diagnosis Coccydynia Other disorder of coccyx documented [facility] this [facility]* Diagnosis Splinter of finger documented in this encounter [facility] note* Diagnosis Pre-op exam Preoperative examination, [...] Other anxiety states documented [facility] this [facility]* Diagnosis Cough documented in this encounter [facility] note* Diagnosis Pre-op exam Preoperative examination, [...] [facility] Diagnosis Pre-op exam Preoperative examination, unspecified [...] 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 [facility]* Diagnosis Pre-op exam Preoperative examination, unspecified Bicipital tendonitis of right shoulder H/O chronic hepatitis Personal history of other diseases of digestive system Tobacco use disorder Marijuana use Cannabis abuse, unspecified Other migraine without status migrainosus, not intractable Congestive heart failure, unspecified HF chronicity, unspecified heart failure type (HCC) Finger pain, right- Primary Pain in limb [facility] Diagnosis Pre-op exam Preoperative examination, unspecified [...] [facility] Diagnosis Pre-op exam Preoperative examination, unspecified [...] [facility] Diagnosis Pre-op exam Preoperative examination, unspecified [...] [facility] Diagnosis Pre-op exam Preoperative examination, unspecified [...] left upper extremity [facility] Diagnosis Pre-op exam Preoperative examination, unspecified Bicipital tendonitis of right shoulder H/O chronic hepatitis Personal history of other diseases of digestive system Tobacco use disorder Marijuana use Cannabis abuse, unspecified Other migraine without status migrainosus, not intractable Congestive heart failure, unspecified HF chronicity, unspecified heart failure type (HCC) Rash- Primary Rash and other nonspecific skin eruption [facility] Diagnosis Pre-op exam Preoperative examination, unspecified [...] left upper extremity [facility] Diagnosis Pre-op exam Preoperative examination, unspecified [...] Pain in limb [facility] Diagnosis Pre-op exam Preoperative examination, unspecified Bicipital tendonitis of right shoulder H/O chronic hepatitis Personal history of other diseases of digestive system Tobacco use disorder Marijuana use Cannabis abuse, unspecified Other migraine without status migrainosus, not intractable Congestive heart failure, unspecified HF chronicity, unspecified heart failure type (HCC) Pain of right hand Pain in limb [facility] Diagnosis Pre-op exam Preoperative examination, [...] shoulder region, unspecified [facility] Diagnosis Pre-op exam Preoperative examination, [...] shoulder region, unspecified [facility] Diagnosis Pre-op exam Preoperative examination, [...] [facility] Diagnosis Pre-op exam Preoperative examination, unspecified [...] [facility] Diagnosis Pre-op exam Preoperative examination, unspecified Bicipital tendonitis of right shoulder H/O chronic hepatitis Personal history of other diseases of digestive system Tobacco use disorder Marijuana use Cannabis abuse, unspecified Other migraine without status migrainosus, not intractable Congestive heart failure, unspecified HF chronicity, unspecified heart failure type (HCC) Insomnia, unspecified type [facility] Diagnosis Pre-op exam Preoperative examination, unspecified [...] [facility] Diagnosis Pre-op exam Preoperative examination, unspecified Bicipital tendonitis of right shoulder H/O chronic hepatitis Personal history of other diseases of digestive system Tobacco use disorder Marijuana use Cannabis abuse, unspecified Other migraine without status migrainosus, not intractable Congestive heart failure, unspecified HF chronicity, unspecified heart failure type (HCC) Encounter for screening mammogram for breast cancer [facility] Diagnosis Pre-op exam Preoperative examination, unspecified [...] [facility] Diagnosis Pre-op exam Preoperative examination, unspecified [...] [facility] Diagnosis Pre-op exam Preoperative examination, unspecified [...] [facility] Diagnosis Pre-op exam Preoperative examination, unspecified [...] [facility] Diagnosis Pre-op exam Preoperative examination, unspecified [...] shoulder region, unspecified [facility] Diagnosis Pre-op exam Preoperative examination, unspecified [...] rotator cuff repair [facility] Diagnosis Pre-op exam Preoperative examination, [...] region and thigh documented [facility] this [facility]* Diagnosis Pre-op exam Preoperative examination, unspecified [...] pain, unspecified chronicity documented in this encounter [facility] note* Diagnosis Pre-op exam Preoperative examination, [...] [facility] Diagnosis Pre-op exam Preoperative examination, unspecified [...] pain, unspecified chronicity documented [facility] this encounter [facility]* Diagnosis Pre-op exam Preoperative examination, unspecified [...] [facility] Diagnosis Pre-op exam Preoperative examination, unspecified [...] [facility] Diagnosis Pre-op exam Preoperative examination, unspecified [...] Other postprocedural status documented in this encounter [facility] note* Diagnosis Pre-op exam Preoperative examination, [...] shoulder region, unspecified documented in this encounter [facility] note* Diagnosis Pre-op exam Preoperative examination, [...] Other postprocedural status [facility]* Diagnosis Pre-op exam Preoperative examination, unspecified [...] Other postprocedural status documented in this encounter [facility] note* Diagnosis Pre-op exam Preoperative examination, [...] Other postprocedural status documented in this encounter [facility] note* Diagnosis Pre-op exam Preoperative examination, [...] [facility] Diagnosis Pre-op exam Preoperative examination, unspecified [...] extent, subsequent encounter documented in this encounter [facility] note* Diagnosis Pre-op exam Preoperative examination, [...] accident, initial encounter documented [facility] this [facility]* Diagnosis Pre-op exam Preoperative examination, unspecified [...] extent, subsequent encounter documented in this encounter [facility] note* Diagnosis Pre-op exam Preoperative examination, [...] Other postprocedural status documented in this encounter [facility] note* Diagnosis Pre-op exam Preoperative examination, [...] of right shoulder documented in this encounter [facility] note* Diagnosis Pre-op exam Preoperative examination, [...] membrane, left ear documented in this encounter [facility] note* Diagnosis Pre-op exam Preoperative examination, [...] of right shoulder documented in this encounter [facility] note* Diagnosis Pre-op exam Preoperative examination, [...] [facility] Diagnosis Pre-op exam Preoperative examination, unspecified [...] pain, unspecified chronicity documented [facility] this [facility]* Diagnosis Pre-op exam Preoperative examination, unspecified [...] Anxiety state, unspecified documented [facility]* Diagnosis Pre-op exam Preoperative examination, unspecified [...] Other postprocedural status documented [facility] this [facility]* Diagnosis Pre-op exam Preoperative examination, unspecified [...] Anxiety state, unspecified documented [facility] this [facility]* Diagnosis Pre-op exam Preoperative examination, unspecified [...] Anxiety state, unspecified documented in this encounter [facility] note* Diagnosis Pre-op exam Preoperative examination, [...] Other postprocedural status documented in this encounter [facility] note* Diagnosis Pre-op exam Preoperative examination, [...] shoulder Bicipital tenosynovitis documented in this encounter [facility] note* Diagnosis Pre-op exam Preoperative examination, [...] pain, unspecified chronicity documented [facility] this [facility]* Diagnosis Pre-op exam Preoperative examination, unspecified [...] nonspecific skin eruption documented in this encounter [facility] note* Diagnosis Pre-op exam Preoperative examination, [...] female climacteric states documented in this encounter [facility] note* Diagnosis Pre-op exam Preoperative examination, [...] cuff repair- Primary documented in this encounter [facility] note* Diagnosis Pre-op exam Preoperative examination, [...] (ADD) in adult documented in this encounter [facility] note* Diagnosis Pre-op exam Preoperative examination, [...] (ADD) in adult [facility]* Diagnosis Pre-op exam Preoperative examination, unspecified [...] Endometriosis of uterus documented in this encounter [facility] note* Diagnosis Pre-op exam Preoperative examination, [...] Anxiety state, unspecified [facility] Diagnosis Pre-op exam Preoperative examination, unspecified [...] Problem(s): Deep dyspareunia [facility] uterus Deep dyspareunia documented in this encounter [facility] Discharge instructions* Attachments The following attachments cannot be sent through Care Everywhere. * Dental Surgery: Generic: Post-op (Uruguayan) [facility] Hospital Discharge instructions No data available for this section [facility] Progress note No data available for this section [facility] Reason for referral (narrative)* Diagnostic Procedure Only (Routine) - Pending Review Specialty Diagnoses / Procedures Referred By Charity menendez Referred To Contact BR IMAGING Diagnoses Encounter for screening mammogram for breast cancer Procedures KEYON SCREENING SCREENING MAMMOGRAPHY BI 2-VIEW BREAST INC CAD Maile Norman MD [address] [place] [address] Br Imaging [address] [place] [address] Referral ID Status Reason Start Date Expiration Date Visits Requested Visits Authorized [id number] Pending Review Auto-Generat ed Referral 03/03/2022 04/02/2023 1 1 [facility] for referral (narrative)* Diagnostic Procedure Only (Routine) - Authorized Specialty Diagnoses / Procedures Referred By Charity menendez Referred To Contact BR IMAGING Diagnoses Breast pain Mass of lower inner quadrant of right breast Procedures US BREAST LTD RT US BREAST UNI REAL TIME WITH IMAGE LIMITED Karen Mckee APRN.V GROOVE CUTTER [address] [place] [address] Br Imaging [address] [place] [address] Referral ID Status Reason Start Date Expiration Date Visits Requested Visits Authorized [id number] Authorized Auto-Generat ed Referral 2 06/06/2023 1 1 * Consult, Test, Treat (Routine) - Authorized Specialty Diagnoses / Procedures Referred By Davidaac t Referred To Contact Diagnoses Encounter for well woman exam with routine gynecological exam Procedures CONSULT TO COAL CUTTING MACHINE OPERATOR OFFICE/OUTPATIENT [facility] MDM 60-74 MINUTES Karen Mckee APRN.V GROOVE CUTTER [address] [place] [address] Referral ID Status Reason Start Date Expiration Date Visits Requested Visits Authorized [id number] Authorized PCP Requested Referral Auto-Generate d Referral 2 05/07/2023 1 1 * Diagnostic Procedure Only (Routine) - Authorized Specialty Diagnoses / Procedures Referred By Charity t Referred To Contact BR IMAGING Diagnoses Breast pain Mass of lower inner quadrant of right breast Procedures KEYON DIAGNOSTIC RT DIAGNOSTIC MAMMOGRAPHY COMPUTER-AIDED DETCJ UNI Karen Mckee APRN.V GROOVE CUTTER [address] [place] [address] Br Imaging [address] [place] [address] Referral ID Status Reason Start Date Expiration Date Visits Requested Visits Authorized [id number] Authorized Auto-Generat ed Referral 2 06/06/2023 1 1 * Physical Therapy (Routine) - Pending Review Specialty Diagnoses / Procedures Referred By Contac t Referred To Contact [facility] Diagnoses Chronic right shoulder pain Procedures CONSULT TO PHYSICAL THERAPY PHYSICAL THERAPY EVALUATION HIGH COMPLEX 45 MINS Karen Mckee APRN.V GROOVE CUTTER [address] [place] [address] [facility] [place] [address] [place] [address] Referral ID Status Reason Start Date Expiration Date Visits Requested Visits Authorized [id number] Pending Review Auto-Generat ed Referral 2 05/07/2023 1 1 * Consult, Test, Treat (Routine) - Authorized Specialty Diagnoses / Procedures Referred By Contac t Referred To Contact Orthopedics Diagnoses Chronic right shoulder pain Procedures CONSULT TO ORTHOPAEDICS OFFICE/OUTPATIENT [facility] 60-74 MINUTES Karen Mckee APRN.CNS [address] [place] [address] Referral ID Status Reason Start Date Expiration Date Visits Requested Visits Authorized [id number] Authorized PCP Requested Referral 2 05/07/2023 1 1 [facility] for referral (narrative)* Diagnostic Procedure Only (Routine) - Pending Review Specialty Diagnoses / Procedures Referred By Contac t Referred To Contact BR IMAGING Diagnoses Breast pain Mass of lower inner quadrant of right breast Procedures KEYON DIAGNOSTIC BILAT DIAGNOSTIC MAMMOGRAPHY COMPUTER-AIDED DETCJ Sam Denney APRN.ORACLE REPORTS DEVELOPER [address] [place] [address] Br Imaging [address] [place] [phone] Referral ID Status Reason Start Date Expiration Date Visits Requested Visits Authorized [id number] Pending Review Auto-Generat ed Referral 2 06/10/2023 1 1 [facility] Diagnostic Procedure Only (Routine) - Pending Review Specialty Diagnoses / Procedures Referred By Contac t Referred To Contact BR IMAGING Diagnoses Mass of right breast, unspecified quadrant Procedures US BIOPSY BREAST RT BX BREAST W/DEVICE 1ST LESION ULTRASOUND Kuldeep Hoffman MD [address] [place] [address] Br Imaging [address] [place] [address] Referral ID Status Reason Start Date Expiration Date Visits Requested Visits Authorized [id number] Pending Review Auto-Generat ed Referral 06/25/2023 1 1 [facility] for referral (narrative)* Diagnostic Procedure Only (Routine) - Pending Review Specialty Diagnoses / Procedures Referred By Contac t Referred To Contact BR IMAGING Diagnoses Abnormal finding on radiological examination of breast Procedures US BREAST LTD RT US BREAST UNI REAL TIME WITH IMAGE LIMITED Heidi Marcelino MD [address] [place] [address] Br Imaging [address] [place] [phone] Referral ID Status Reason Start Date Expiration Date Visits Requested Visits Authorized [id number] Pending Review Auto-Generat ed Referral 05/31/2022 06/30/2023 1 1 * Diagnostic Procedure Only (Routine) - Pending Review Specialty Diagnoses / Procedures Referred By Davidaac t Referred To Contact BR IMAGING Diagnoses Abnormal finding on radiological examination of breast Procedures KEYON DIAGNOSTIC BILAT DIAGNOSTIC MAMMOGRAPHY COMPUTER-AIDED DETCJ BI Heidi Marcelino MD [address] [place] [address] Br Imaging [address] [place] [phone] Referral ID Status Reason Start Date Expiration Date Visits Requested Visits Authorized [id number] Pending Review Auto-Generat ed Referral 05/31/2022 06/30/2023 1 1 [facility] for referral (narrative)* Diagnostic Procedure Only (Routine) - Closed Specialty Diagnoses / Procedures Referred By Charity t Referred To Contact XR IMAGING Diagnoses Coccydynia Procedures XR SACRUM/COCCYX 3V AP/LAT RADEX SACRUM & COCCYX MINIMUM 2 VIEWS PodlogarGayla APRN.ORACLE REPORTS DEVELOPER [address] [place] [address] Xr Imaging Referral ID Status Reason Start Date Expiration Date V isits Requested Visits Authorized [id number] Closed Auto-Generate d Referral 12/01/2022 12/31/2023 1 1 [facility] for referral (narrative)* Diagnostic Procedure Only (Routine) - Pending Review Specialty Diagnoses / Procedures Referred By Contac t Referred To Contact BR IMAGING Diagnoses Encounter for screening mammogram for breast cancer Procedures KEYON SCREENING SCREENING MAMMOGRAPHY BI 2-VIEW BREAST INC Maile Garcia MD [address] [place] [address] Br Imaging [address] [place] [address] Referral ID Status Reason Start Date Expiration Date Visits Requested Visits Authorized [id number] Pending Review Auto-Generat ed Referral 02/09/2023 03/10/2024 1 1 [facility] for referral (narrative)* Diagnostic Procedure Only (Routine) - New Request Specialty Diagnoses / Procedures Referred By Charity menendez Referred To Contact BR IMAGING Diagnoses Encounter for screening mammogram for breast cancer Procedures KEYON SCREENING W TEERSITA SCREENING DIGITAL BREAST TOMOSYNTHESIS BI SCREENING MAMMOGRAPHY BI 2-VIEW BREAST INC Maile Garcia MD [address] [place] [address] Br Imaging [address] [place] [address] Referral ID Status Reason Start Date Expiration Date Visits Requested Visits Authorized [id number] New Request Auto-Generat ed Referral 01/11/2024 02/09/2025 1 1 [facility] for referral (narrative)* Diagnostic Procedure Only (Routine) - Closed Specialty Diagnoses / Procedures Referred By Contac t Referred To Contact XR IMAGING Diagnoses Coccydynia Procedures XR SACRUM/COCCYX 3V AP/LAT RADEX SACRUM & COCCYX MINIMUM 2 VIEWS Podlogar, Gayla, MACHINE SIGN WRITER.ORACLE REPORTS DEVELOPER [address] [place] [address] [place] [address] Referral ID Status Reason Start Date Expiration Date V isits Requested Visits Authorized [id number] Closed Auto-Generate d Referral 12/01/2022 12/31/2023 1 1 [facility] for referral (narrative)* Diagnostic Procedure Only (Routine) - Closed Specialty Diagnoses / Procedures Referred By Contac t Referred To Contact XR IMAGING Diagnoses Splinter of finger Procedures XR DIGIT GENERAL 3V FRONTAL/LAT/OBL RIGHT RADEX FINGR MINIMUM 2 VIEWS Pennie Clemente APRN.ORACLE REPORTS DEVELOPER [address] [place] [address] [place] [address] Referral ID Status Reason Start Date Expiration Date V isits Requested Visits Authorized [id number] Closed Auto-Generate d Referral 03/16/2022 04/15/2023 1 1 [facility] for referral (narrative)* Diagnostic Procedure Only (Urgent) - Closed Specialty Diagnoses / Procedures Referred By Contac t Referred To Contact XR IMAGING Diagnoses Injury of left upper extremity, subsequent encounter Mass of left upper extremity Procedures XR FOREARM GENERAL 2V AP/LAT LEFT RADEX FOREARM 2 VIEWS Karen Mckee APRN.V GROOVE CUTTER [address] [place] [address] [place] [address] Referral ID Status Reason Start Date Expiration Date V isits Requested Visits Authorized [id number] Closed Auto-Generate d Referral 05/10/2024 06/09/2025 1 1 [facility] for referral (narrative)* Diagnostic Procedure Only (Urgent) - New Request Specialty Diagnoses / Procedures Referred By Contac t Referred To Contact XR IMAGING Diagnoses Pain of right hand Procedures XR HAND GENERAL 3V PA/LAT/OBL RIGHT RADEX HAND MINIMUM 3 VIEWS Galo Bernal APRN.ORACLE REPORTS DEVELOPER [address] [facility] [place] [place] [address] [place] [address] Referral ID Status Reason Start Date Expiration Date Visits Requested Visits Authorized [id number] New Request Auto-Generat ed Referral 06/22/2025 1 1 [facility] for referral (narrative)* Diagnostic Procedure Only (Urgent) - Closed Specialty Diagnoses / Procedures Referred By Contac t Referred To Contact XR IMAGING Diagnoses Pain of right hand Procedures XR HAND GENERAL 3V PA/LAT/OBL RIGHT RADEX HAND MINIMUM 3 VIEWS Galo Bernal APRN.ORACLE REPORTS DEVELOPER [address] [place] [address] [place] [address] Referral ID Status Reason Start Date Expiration Date V isits Requested Visits Authorized [id number] Closed Auto-Generate d Referral 05/23/2024 06/22/2025 1 1 [facility] for referral (narrative)* Diagnostic Procedure Only (Routine) - New Request Specialty Diagnoses / Procedures Referred By Davidaac t Referred To Contact BR IMAGING Diagnoses Encounter for screening mammogram for breast cancer Procedures KEYON SCREENING W TERESITA SCREENING DIGITAL BREAST TOMOSYNTHESIS BI SCREENING MAMMOGRAPHY BI 2-VIEW BREAST INC Cecile Corbett APRN.ORACLE REPORTS DEVELOPER [address] [facility] [place] [address] Br Imaging [address] [place] [address] Referral ID Status Reason Start Date Expiration Date Visits Requested Visits Authorized [id number] New Request Auto-Generat ed Referral 07/09/2024 08/08/2025 1 1 [facility] for visit Narrative* Diagnostic Procedure Only (Routine) - Closed Specialty Diagnoses / Procedures Referred By Contac t Referred To Contact XR IMAGING Diagnoses Coccydynia Procedures XR SACRUM/COCCYX 3V AP/LAT RADEX SACRUM & COCCYX MINIMUM 2 VIEWS Gayla Ayala, MACHINE SIGN WRITER.ORACLE REPORTS DEVELOPER [address] [place] [address] [place] [address] Referral ID Status Reason Start Date Expiration Date V isits Requested Visits Authorized [id number] Closed Auto-Generate d Referral 12/01/2022 12/31/2023 1 1 [facility] for visit Narrative* Diagnostic Procedure Only (Routine) - Closed Specialty Diagnoses / Procedures Referred By Contac t Referred To Contact XR IMAGING Diagnoses Splinter of finger Procedures XR DIGIT GENERAL 3V FRONTAL/LAT/OBL RIGHT RADEX FINGR MINIMUM 2 VIEWS Pennie Clemente, MACHINE SIGN WRITER.ORACLE REPORTS DEVELOPER [address] [place] [address] [place] [address] Referral ID Status Reason Start Date Expiration Date V isits Requested Visits Authorized [id number] Closed Auto-Generate d Referral 03/16/2022 04/15/2023 1 1 [facility] for visit Narrative* Diagnostic Procedure Only (Urgent) - Closed Specialty Diagnoses / Procedures Referred By Contac t Referred To Contact XR IMAGING Diagnoses Injury of left upper extremity, subsequent encounter Mass of left upper extremity Procedures XR FOREARM GENERAL 2V AP/LAT LEFT RADEX FOREARM 2 VIEWS Karen Mckee, MACHINE SIGN WRITER.V GROOVE CUTTER [address] [place] [address] [place] [address] Referral ID Status Reason Start Date Expiration Date V isits Requested Visits Authorized [id number] Closed Auto-Generate d Referral 05/10/2024 06/09/2025 1 1 [facility] for visit Narrative* Diagnostic Procedure Only (Urgent) - Closed Specialty Diagnoses / Procedures Referred By Contac t Referred To Contact XR IMAGING Diagnoses Pain of right hand Procedures XR HAND GENERAL 3V PA/LAT/OBL RIGHT RADEX HAND MINIMUM 3 VIEWS Galo Bernal, MACHINE SIGN WRITER.ORACLE REPORTS DEVELOPER [address] [place] [address] [place] [address] Referral ID Status Reason Start Date Expiration Date V isits Requested Visits Authorized [id number] Closed Auto-Generate d Referral 05/23/2024 06/22/2025 1 1 [facility] for visit Narrative* Diagnostic Procedure Only (Routine) - Closed Specialty Diagnoses / Procedures Referred By Contac t Referred To Contact XR IMAGING Diagnoses Right hip pain Procedures XR HIP BILATERAL 5V PEL/AP/LAT EACH HIP RADEX HIPS BILATERAL WITH PELVIS MINIMUM 5 VIEWS Sam Khan APRN.ORACLE REPORTS DEVELOPER [address] [place] [address] Phone: tel: fax: [place] [address] Referral ID Status Reason Start Date Expiration Date V isits Requested Visits Authorized [id number] Closed Auto-Generate d Referral 09/21/2024 10/21/2025 1 1 [facility] note* Margo Wolf N: PERFORM Event Display: Patient Summary Documents Authored Date: [id number] [facility] Summary Purpose Family History No Family [...] FoundDocuments on File Type Date Recorded 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 Advance Directive(s) Advance Directive(s) 12/30/2018 3:43 PM Advance Directive(s) 10/19/2018 9:14 PM Advance Directive(s) 07/02/2018 4:59 PM Advance Directive(s) 01/30/2018 1:31 PM Advance Directive(s) 01/23/2018 6:09 PM Reason for Referral Specialty Diagnoses / Procedures Referred By Contac t Referred To Contact Orthopedics Diagnoses Splinter of finger Procedures CONSULT PANEL TO ORTHOPAEDICS OFFICE/OUTPATIENT [facility] 60-74 MINUTES Pennie Clemente APRN.ORACLE REPORTS DEVELOPER [address] [place] [id number] Referral ID Status Reason Start Date Expiration Date Visits Requested Visits Authorized [id number] Authorized PCP Requested Referral 03/16/2022 03/16/2023 1 1 Specialty Diagnoses / Procedures Referred By Contac t Referred To Contact XR IMAGING Diagnoses Splinter of finger Procedures XR DIGIT GENERAL 3V FRONTAL/LAT/OBL RIGHT RADEX FINGR MINIMUM 2 VIEWS Pennie Clemente APRN.ORACLE REPORTS DEVELOPER [address] [place] [id number] Xr Imaging Referral ID Status Reason Start Date Expiration Date V isits Requested Visits Authorized [id number] Closed Auto-Generate d Referral 03/16/2022 04/15/2023 1 1 Specialty Diagnoses / Procedures Referred By Contac t Referred To Contact General Surgery Diagnoses Mass of right breast, unspecified quadrant Procedures CONSULT TO GENERAL SURGERY OFFICE/OUTPATIENT [facility] 60-74 MINUTES Maile Norman MD [address] [place] [address] Referral ID Status Reason Start Date Expiration Date V isits Requested Visits Authorized [id number] Closed PCP Requested Referral 05/12/2022 05/12/2023 1 1 Specialty Diagnoses / Procedures Referred By Contac t Referred To Contact MR IMAGING Diagnoses Tear of right glenoid labrum, subsequent encounter Chronic right shoulder pain Procedures MRI SHOULDER WO/W IVCON RIGHT MRI ANY JT UPPER EXTREMITY W/O & W/CONTR MATRL Sam Khan APRN.ORACLE REPORTS DEVELOPER [address] [place] [phone] Mr Imaging Referral ID Status Reason Start Date Expiration Date Visits Requested Visits Authorized [id number] Pending Review Auto-Generat ed Referral 02/08/2023 03/09/2024 1 1 Specialty Diagnoses / Procedures Referred By Contac t Referred To Contact Pain Management Diagnoses Tear of right glenoid labrum, subsequent encounter Chronic right shoulder pain Procedures CONSULT TO PAIN MGT OFFICE/OUTPATIENT [facility] MDM 60-74 MINUTES Sam Khan APRN.ORACLE REPORTS DEVELOPER [address] [place] [phone] Referral ID Status Reason Start Date Expiration Date Visits Requested Visits Authorized [id number] Authorized PCP Requested Referral 02/08/2023 02/08/2024 1 1 Specialty Diagnoses / Procedures Referred By Contac t Referred To Contact Orthopedics Diagnoses Tear of right glenoid labrum, subsequent encounter Chronic right shoulder pain Procedures CONSULT TO ORTHOPAEDICS OFFICE/OUTPATIENT [facility] 60-74 MINUTES Sam Khan APRN.ORACLE REPORTS DEVELOPER [address] [place] [address] Referral ID Status Reason Start Date Expiration Date Visits Requested Visits Authorized [id number] Authorized PCP Requested Referral 3 04/24/2024 1 1 Specialty Diagnoses / Procedures Referred By Contac t Referred To Contact Gynecology Diagnoses Screening for cervical cancer Procedures CONSULT TO GYNECOLOGY OFFICE/OUTPATIENT [facility] 60-74 MINUTES Rick Anderson MD [address] [place] [address] Referral ID Status Reason Start Date Expiration Date Visits Requested Visits Authorized [id number] Authorized PCP Requested Referral Auto-Generate d Referral 04/30/2023 04/29/2024 1 1 Specialty Diagnoses / Procedures Referred By Contac t Referred To Contact [facility] Diagnoses Tachycardia Procedures ECG COMPLETE ECG ROUTINE ECG W/LEAST 12 LDS W/I&[place] [address] [place] [address] [facility] [place] [address] [place] [address] Referral ID Status Reason Start Date Expiration Date Visits Requested Visits Authorized [id number] Pending Review Auto-Generat ed Referral 04/30/2023 04/29/2024 1 1 Specialty Diagnoses / Procedures Referred By Davidaac t Referred To Contact MR IMAGING Diagnoses Tear of right glenoid labrum, subsequent encounter Chronic right shoulder pain Procedures MRI SHOULDER WO/W IVCON RIGHT MRI ANY JT UPPER EXTREMITY W/O & W/CONTR MATRL Sam Khan APRN.ORACLE REPORTS DEVELOPER [address] [place] [address] Mr Imaging [facility] Referral ID Status Reason Start Date Expiration Date V isits Requested Visits Authorized [id number] Closed Auto-Generate d Referral 02/25/2023 06/26/2023 1 1 Specialty Diagnoses / Procedures Referred By Contac t Referred To Contact Orthopedics Diagnoses Chronic right shoulder pain Labral tear of shoulder, degenerative, right Procedures CONSULT TO ORTHOPAEDICS OFFICE/OUTPATIENT [facility] MDM 60-74 MINUTES PrebiCharles shelton APRN.ORACLE REPORTS DEVELOPER [address] [facility] [place] [address] Antonio Rios MD [address] [place] [address] Referral ID Status Reason Start Date Expiration Date Visits Requested Visits Authorized [id number] Authorized PCP Requested Referral 3 05/11/2024 1 1 Specialty Diagnoses / Procedures Referred By Contac t Referred To Contact Pain Management Diagnoses Coccydynia Procedures CONSULT TO PAIN MGT OFFICE/OUTPATIENT [facility] 60-74 MINUTES PodlogGayla carias APRN.ORACLE REPORTS DEVELOPER [address] [place] [address] Referral ID Status Reason Start Date Expiration Date Visits Requested Visits Authorized [id number] Authorized PCP Requested Referral 12/07/2022 12/06/2023 1 1 Specialty Diagnoses / Procedures Referred By Contac t Referred To Contact [facility] Diagnoses S/P shoulder surgery Procedures CONSULT TO PHYSICAL THERAPY PHYSICAL THERAPY EVALUATION HIGH COMPLEX 45 MINS Laura Martin PA-C [address] [place] [address] [facility] [place] [address] [place] [address] Referral ID Status Reason Start Date Expiration Date Visits Requested Visits Authorized [id number] Pending Review Auto-Generat ed Referral 09/05/2023 09/04/2024 1 1 Specialty Diagnoses / Procedures Referred By Contac t Referred To Contact MR IMAGING Diagnoses S/P right rotator cuff repair Right shoulder pain, unspecified chronicity Procedures MRI SHOULDER WO IVCON RIGHT MRI ANY JT UPPER EXTREMITY W/O CONTRAST Louis Kaufman MD [address] [place] [address] [place] [address] Referral ID Status Reason Start Date Expiration Date Visits Requested Visits Authorized [id number] New Request Auto-Generat ed Referral 02/07/2024 03/08/2025 1 1 Specialty Diagnoses / Procedures Referred By Contac t Referred To Contact General Surgery Diagnoses Injury of left upper extremity, subsequent encounter Mass of left upper extremity Procedures CONSULT TO GENERAL SURGERY OFFICE/OUTPATIENT NEW [facility] MDM 60 MINUTES Karen Mckee, MACHINE SIGN WRITER.V GROOVE CUTTER [address] [place] [address] Referral ID Status Reason Start Date Expiration Date Visits Requested Visits Authorized [id number] Authorized PCP Requested Referral 05/10/2025 1 1 Specialty Diagnoses / Procedures Referred By Contac t Referred To Contact XR IMAGING Diagnoses Injury of left upper extremity, subsequent encounter Mass of left upper extremity Procedures XR FOREARM GENERAL 2V AP/LAT LEFT RADEX FOREARM 2 VIEWS Karen Mckee, MACHINE SIGN WRITER.V GROOVE CUTTER [address] [place] [address] [place] [address] Referral ID Status Reason Start Date Expiration Date V isits Requested Visits Authorized [id number] Closed Auto-Generate d Referral 05/10/2024 06/09/2025 1 1 Referral ID Status Reason Start Date Expiration Date V isits Requested Visits Authorized [id number] Closed Auto-Generate d Referral 06/06/2024 07/06/2024 1 [...] Date Last Indicated Resolved Time RSV 08/01/2023 08/01/202308/29/2023 8:51 PM EST Additional Source Comments INFORMATION SOURCE (unrecogn ized section and content) DATE CREATED AUTHOR 07/04/2018 [facility] DATE CREATED AUTHOR AUTHOR'S ORGANIZ ATION 12/15/2021 [facility] DATE CREATED AUTHOR AUTHOR'S ORGANIZ ATION 02/17/2024 [facility] ([place]) DATE CREATED AUTHOR AUTHOR'S ORGANIZ ATION 10/17/2024 [facility] DATE CREATED AUTHOR AUTHOR'S ORGANIZ ATION 01/07/2025 [facility] DATE CREATED AUTHOR AUTHOR'S ORGANIZ ATION 04/29/2025 [facility] DATE CREATED AUTHOR AUTHOR'S ORGANIZ ATION 05/04/2025 [facility] DATE CREATED AUTHOR AUTHOR'S ORGANIZ ATION 05/08/2025 [facility] Reason for Visit (unrecogniz ed section and content) Reason Comments Physical Therapy Specialty Diagnoses / Procedures Referred By Contac t Referred To Contact [facility] Diagnoses S/P right rotator cuff repair Right shoulder pain, unspecified chronicity Procedures CONSULT TO PHYSICAL THERAPY PHYSICAL THERAPY EVALUATION HIGH COMPLEX 45 MINS Laura Martin PA-C [address] [place] [address] Phone: tel: fax: [facility] [address] [place] [address] Referral ID Status Reason Start Date Expiration Date Visits Requested Visits Authorized [id number] Authorized Auto-Generat ed Referral 06/27/2024 06/26/2025 8 8 Reason Comments PT Progress Note Reason Comments PT Eval Specialty Diagnoses / Procedures Referred By Contac t Referred To Contact Physical Therapy / PHYSICAL THERAPY Diagnoses right shoulder post op Procedures NEW RS PT ORTH MSK Self Mya'Yodit Robin, PT Referral ID Status Reason Start Date Expiration Date V isits Requested Visits Authorized [id number] Authorized 06/27/2023 06/26/2024 30 30 Reason Comments [...] quadrant Procedures CONSULT TO GENERAL SURGERY OFFICE/OUTPATIENT [facility] MDM 60-74 MINUTES Maile Norman MD [address] [place] [address] Referral ID Status Reason Start Date Expiration Date V isits Requested Visits Authorized [id number] Closed PCP Requested Referral 05/12/2022 05/12/2023 1 [...] Request Reason Comments Acute Visit Area to [facility] fee ls abnormal x1 month Reason Comments Shoulder Injury of right shoulder an d requesting a MRI with contrast. This was a work related injury but due to paperwork issues the claim was closed. 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 Consult pain [...] like a referral to ortho at [facility] to discuss options Reason Comments Medication Problem [...] JT UPPER EXTREMITY W/O & W/CONTR MATRL Erin, Sam, MACHINE SIGN WRITER.ORACLE REPORTS DEVELOPER [address] [place] [address] [place] [address] Referral ID Status Reason Start Date Expiration Date V isits Requested Visits Authorized [id number] Closed Auto-Generate d Referral 02/25/2023 06/26/2023 1 1 Reason Comments Referral Information Reason Onset Date Comments Refill Request 05/12/2023 Reason Comments New Patient Right shoulder Pain - Labrial Tear - 01/03 Reason Onset Date Comments Refill Request 05/25/2023 Reason Comments Pain New Referred by Charles Precat Specialty Diagnoses / Procedures Referred By Charity menendez Referred To Contact Orthopedics Diagnoses Chronic right shoulder pain Labral tear of shoulder, degenerative, right Procedures CONSULT TO ORTHOPAEDICS OFFICE/OUTPATIENT NEW HIGH MDM 60-74 MINUTES Charles Stanton APRN.ORACLE REPORTS DEVELOPER [address] [place] [address] Antonio Rios MD [address] [place] [id number] Referral ID Status Reason Start Date Expiration Date V isits Requested Visits Authorized [id number] Closed PCP Requested Referral 05/12/2023 05/11/2024 1 [...] wanted General Surgery consult f axed to [facility] Reason Onset Date Comments Refill Request 06/08/2024 Specialty Diagnoses / Procedures Referred By Charity menendez Referred To Contact MR IMAGING Diagnoses S/P right rotator cuff repair Right shoulder pain, unspecified chronicity Procedures MRI SHOULDER WO IVCON RIGHT MRI ANY JT UPPER EXTREMITY W/O CONTRAST Louis Kaufman MD [address] [place] [address]. [place] [id number] [place] [address] [place] [address] Referral ID Status Reason Start Date Expiration Date V isits Requested Visits Authorized [id number] Closed Auto-Generate d Referral 06/06/2024 07/06/2024 1 [...] results Procedures DENISE ESTABLISH Louis Valencia MD [address] [place] [address] Louis Valencia MD [address] [place] [address] Referral ID Status Reason Start Date Expiration Date Visits Requested Visits Authorized [id number] New Request Financial Clearance Required - OON [...] n out of car. Police Report # [id number] Reason Onset Date Comments Refill Request 12/10/2024 [...] Care Teams (unrecognized sec tion and content) Adjunct Writing Instructor Relationship Specialty Start Date End Date Maile Norman PCP - General 05/09/16 Adjunct Writing Instructor Relationship Specialty Start Date End Date Maile Norman MD [address] [place] [address], [place] [address] PCP - General Internal Medicine 02/24/12 Adjunct Writing Instructor Relationship Specialty Start Date End Date Maile Norman MD [address] [place] [address], [place] [address] PCP - General Internal Medicine 02/24/12 Adjunct Writing Instructor Relationship Specialty Start Date End Date Maile Norman MD [address] [place] [address], [place] [address] PCP - General Internal Medicine 02/24/12 Adjunct Writing Instructor Relationship Specialty Start Date End Date Maile Norman MD [address] [place] [address], [place] [address] PCP - General Internal Medicine 02/24/12 Adjunct Writing Instructor Relationship Specialty Start Date End Date Maile Norman MD [address] [place] [address], [place] [address] PCP - General Internal Medicine 02/24/12 Adjunct Writing Instructor Relationship Specialty Start Date End Date Maile Norman MD [address] [place] [address], [place] [address] PCP - General Internal Medicine 02/24/12 Adjunct Writing Instructor Relationship Specialty Start Date End Date Maile Norman MD [address] [place] [address], [place] [address] PCP - General Internal Medicine 02/24/12 Adjunct Writing Instructor Relationship Specialty Start Date End Date Maile Norman MD [address] [place] [address], [place] [address] PCP - General Internal Medicine 02/24/12 Adjunct Writing Instructor Relationship Specialty Start Date End Date Maile Norman MD [address] [facility] [place] [address] PCP - General Internal Medicine 02/24/12 Adjunct Writing Instructor Relationship Specialty Start Date End Date Maile Norman MD [facility] [place] [address] PCP - General Internal Medicine 02/24/12 Adjunct Writing Instructor Relationship Specialty Start Date End Date Maile Norman MD [address] [place] [address], [place] [address] PCP - General Internal Medicine 02/24/12 Adjunct Writing Instructor Relationship Specialty Start Date End Date Maile Norman MD [address] [place] [address], [place] [address] PCP - General Internal Medicine 02/24/12 Adjunct Writing Instructor Relationship Specialty Start Date End Date Maile Norman MD [address] [place] [address], [place] [address] PCP - General Internal Medicine 02/24/12 Adjunct Writing Instructor Relationship Specialty Start Date End Date Maile Norman MD [address] [place] [address], [place] [address] PCP - General Internal Medicine 02/24/12 Adjunct Writing Instructor Relationship Specialty Start Date End Date Maile Norman MD [address] [place] [address], [place] [address] PCP - General Internal Medicine 02/24/12 Adjunct Writing Instructor Relationship Specialty Start Date End Date Maile Norman MD [address] [place] [address], [place] [address] PCP - General Internal Medicine 02/24/12 Adjunct Writing Instructor Relationship Specialty Start Date End Date Maile Norman MD [address] [facility] [place] [address] PCP - General Internal Medicine 02/24/12 Adjunct Writing Instructor Relationship Specialty Start Date End Date Maile Norman MD [address] [facility] [place] [address] PCP - General Internal Medicine 02/24/12 Adjunct Writing Instructor Relationship Specialty Start Date End Date Maile Norman MD [address] [facility] [place] [address] PCP - General Internal Medicine 02/24/12 Adjunct Writing Instructor Relationship Specialty Start Date End Date Maile Norman MD [address] [facility] [place] [place] [address] PCP - General Internal Medicine 02/24/12 Adjunct Writing Instructor Relationship Specialty Start Date End Date Maile Norman MD [address] [facility] [place] [address] PCP - General Internal Medicine 02/24/12 Adjunct Writing Instructor Relationship Specialty Start Date End Date Maile Norman MD [address] [facility] [place] [address] PCP - General Internal Medicine 02/24/12 Adjunct Writing Instructor Relationship Specialty Start Date End Date Maile Norman MD [address] [facility] [place] [address] PCP - General Internal Medicine 02/24/12 Adjunct Writing Instructor Relationship Specialty Start Date End Date Maile Norman MD [address] [facility] [place] [address] PCP - General Internal Medicine 02/24/12 Adjunct Writing Instructor Relationship Specialty Start Date End Date Maile Norman MD [address] [place] [address] PCP - General Internal Medicine 02/24/12 Adjunct Writing Instructor Relationship Specialty Start Date End Date Maile Norman MD [address] [place] [address] PCP - General Internal Medicine 02/24/12 Adjunct Writing Instructor Relationship Specialty Start Date End Date Maile Norman MD [address] [place] [address] PCP - General Internal Medicine 02/24/12 Adjunct Writing Instructor Relationship Specialty Start Date End Date Maile Norman MD [address] [place] [address] PCP - General Internal Medicine 02/24/12 Adjunct Writing Instructor Relationship Specialty Start Date End Date Maile Norman MD [address] [place] [address] PCP - General Internal Medicine 02/24/12 Adjunct Writing Instructor Relationship Specialty Start Date End Date Maile Norman MD [address] [place] [address] PCP - General Internal Medicine 02/24/12 Adjunct Writing Instructor Relationship Specialty Start Date End Date Maile Norman MD [address] [place] [address] PCP - General Internal Medicine 02/24/12 Adjunct Writing Instructor Relationship Specialty Start Date End Date Maile Norman MD [address] [place] [address] PCP - General Internal Medicine 02/24/12 Adjunct Writing Instructor Relationship Specialty Start Date End Date Maile Norman MD [address] [place], [place] 591511 PCP - General Internal Medicine 02/24/12 Adjunct Writing Instructor Relationship Specialty Start Date End Date Maile Norman MD [address] [place], [place] 520671 PCP - General Internal Medicine 02/24/12 Charles Stanton APRN.ORACLE REPORTS DEVELOPER [address] [place] [address] Referring Pain Management 05/18/23 Adjunct Writing Instructor Relationship Specialty Start Date End Date Maile Norman MD [address] [place], [place] 912191 PCP - General Internal Medicine 02/24/12 Charles Stanton APRN.ORACLE REPORTS DEVELOPER [address] [place] [address] Referring Pain Management 05/18/23 Adjunct Writing Instructor Relationship Specialty Start Date End Date Maile Norman MD [address] [place], [place] 187361 PCP - General Internal Medicine 02/24/12 Charles Stanton APRN.ORACLE REPORTS DEVELOPER [address] [place] [address] Referring Pain Management 05/18/23 Adjunct Writing Instructor Relationship Specialty Start Date End Date Maile Norman MD [address] [place] [address] PCP - General Internal Medicine 02/24/12 Charles Stanton APRN.ORACLE REPORTS DEVELOPER [address] [place] [address] Referring Pain Management 05/18/23 Adjunct Writing Instructor Relationship Specialty Start Date End Date Maile Norman MD [address] [place], [place] 961811 PCP - General Internal Medicine 02/24/12 Charles Stanton APRN.ORACLE REPORTS DEVELOPER [address] [place] [address] Referring Pain Management 05/18/23 Adjunct Writing Instructor Relationship Specialty Start Date End Date Maile Norman MD [address] [place], [place] 689441 PCP - General Internal Medicine 02/24/12 Charles Stanton, MACHINE SIGN WRITER.ORACLE REPORTS DEVELOPER [address] [place] [address] Referring Pain Management 05/18/23 Adjunct Writing Instructor Relationship Specialty Start Date End Date Maile Norman MD [address] [place], [place] 221381 PCP - General Internal Medicine 02/24/12 Charles Stanton, MACHINE SIGN WRITER.ORACLE REPORTS DEVELOPER [address] [place] [address] Referring Pain Management 05/18/23 Adjunct Writing Instructor Relationship Specialty Start Date End Date Maile Norman MD [address] [place] [address] PCP - General Internal Medicine 02/24/12 Presh, Charles, MACHINE SIGN WRITER.ORACLE REPORTS DEVELOPER [address] [place] [address] Referring Pain Management 05/18/23 Adjunct Writing Instructor Relationship Specialty Start Date End Date Maile Norman MD [address] [place] [address] PCP - General Internal Medicine 02/24/12 Presh, Charles, MACHINE SIGN WRITER.ORACLE REPORTS DEVELOPER [address] [place] [address] Referring Pain Management 05/18/23 Adjunct Writing Instructor Relationship Specialty Start Date End Date Maile Norman MD [address] [place], [place] 847041 PCP - General Internal Medicine 02/24/12 Presh, Charles, MACHINE SIGN WRITER.ORACLE REPORTS DEVELOPER [address] [place] [address] Referring Pain Management 05/18/23 Adjunct Writing Instructor Relationship Specialty Start Date End Date Maile Norman MD [address] [place] [address] PCP - General Internal Medicine 02/24/12 Prebish, Charles, MACHINE SIGN WRITER.ORACLE REPORTS DEVELOPER [address] [place] [address] Referring Pain Management 05/18/23 Adjunct Writing Instructor Relationship Specialty Start Date End Date Maile Norman MD [address] [place], [place] 504761 PCP - General Internal Medicine 02/24/12 Prebish, Charles, MACHINE SIGN WRITER.ORACLE REPORTS DEVELOPER [address] [place] [address] Referring Pain Management 05/18/23 Adjunct Writing Instructor Relationship Specialty Start Date End Date Maile Norman MD [address] [place], [place] 764701 PCP - General Internal Medicine 02/24/12 Prebish, Charles, MACHINE SIGN WRITER.ORACLE REPORTS DEVELOPER [address] [place] [address] Referring Pain Management 05/18/23 Adjunct Writing Instructor Relationship Specialty Start Date End Date Maile Norman MD [address] [place], [place] 958281 PCP - General Internal Medicine 02/24/12 Prebish, Charles, MACHINE SIGN WRITER.ORACLE REPORTS DEVELOPER [address] [place] [address] Referring Pain Management 05/18/23 Adjunct Writing Instructor Relationship Specialty Start Date End Date Maile Norman MD [address] [place], [place] 979381 PCP - General Internal Medicine 02/24/12 Prebish, Charles, MACHINE SIGN WRITER.ORACLE REPORTS DEVELOPER [address] [place], [place] 536[address]85 Referring Pain Management 05/18/23 Adjunct Writing Instructor Relationship Specialty Start Date End Date Maile Norman MD [address] [place], [place] 228801 PCP - General Internal Medicine 02/24/12 Prebish, Hcarles, MACHINE SIGN WRITER.ORACLE REPORTS DEVELOPER [address] [place] [address] Referring Pain Management 05/18/23 Adjunct Writing Instructor Relationship Specialty Start Date End Date Maile Norman MD [address] [place], [place] 048941 PCP - General Internal Medicine 02/24/12 Prelucysh, Charles, MACHINE SIGN WRITER.ORACLE REPORTS DEVELOPER [address] [place] [address] Referring Pain Management 05/18/23 Adjunct Writing Instructor Relationship Specialty Start Date End Date Maile Norman MD [address] [place], [place] 127041 PCP - General Internal Medicine 02/24/12 Prebish, Charles, MACHINE SIGN WRITER.ORACLE REPORTS DEVELOPER [address] [place] [address] Referring Pain Management 05/18/23 Adjunct Writing Instructor Relationship Specialty Start Date End Date Maile Norman MD [address] [place] [address] PCP - General Internal Medicine 02/24/12 Prebish, Charles, MACHINE SIGN WRITER.ORACLE REPORTS DEVELOPER [address] [place] [address] Referring Pain Management 05/18/23 Adjunct Writing Instructor Relationship Specialty Start Date End Date Maile Norman MD [address] [place], [place] 009531 PCP - General Internal Medicine 02/24/12 PreCharles peterson, MACHINE SIGN WRITER.ORACLE REPORTS DEVELOPER [address] [place] [address] Referring Pain Management 05/18/23 Adjunct Writing Instructor Relationship Specialty Start Date End Date Maile Norman MD [address] [place], [place] 804021 PCP - General Internal Medicine 02/24/12 Prelucysh, Charles, MACHINE SIGN WRITER.ORACLE REPORTS DEVELOPER [address] [place] [address] Referring Pain Management 05/18/23 Adjunct Writing Instructor Relationship Specialty Start Date End Date Maile Norman MD [address] [place], [place] 602501 PCP - General Internal Medicine 02/24/12 Prenicholas, Charles, MACHINE SIGN WRITER.ORACLE REPORTS DEVELOPER [address] [place] [address] Referring Pain Management 05/18/23 Adjunct Writing Instructor Relationship Specialty Start Date End Date Maile Norman MD [address] [place] [address] PCP - General Internal Medicine 02/24/12 PrelucyshCharles, MACHINE SIGN WRITER.ORACLE REPORTS DEVELOPER [address] [place] [address] Referring Pain Management 05/18/23 Adjunct Writing Instructor Relationship Specialty Start Date End Date Maile Norman MD [address], [place] 266361 PCP - General Internal Medicine 02/24/12 Prebish, Charles, MACHINE SIGN WRITER.ORACLE REPORTS DEVELOPER [address] [place] [address] Referring Pain Management 05/18/23 Adjunct Writing Instructor Relationship Specialty Start Date End Date Maile Norman MD [address] [place], [place] 980401 PCP - General Internal Medicine 02/24/12 Prebish, Charles, MACHINE SIGN WRITER.ORACLE REPORTS DEVELOPER [address] [place] [address] Referring Pain Management 05/18/23 Adjunct Writing Instructor Relationship Specialty Start Date End Date Maile Norman MD [address] [place], [place] 849521 PCP - General Internal Medicine 02/24/12 Prebish, Charles, MACHINE SIGN WRITER.ORACLE REPORTS DEVELOPER [address] [place] [address] Referring Pain Management 05/18/23 Adjunct Writing Instructor Relationship Specialty Start Date End Date Maile Norman MD [address] [place], [place] 861411 PCP - General Internal Medicine 02/24/12 Prebish, Charles, MACHINE SIGN WRITER.ORACLE REPORTS DEVELOPER [address] [place] [address] Referring Pain Management 05/18/23 Adjunct Writing Instructor Relationship Specialty Start Date End Date Maile Norman MD [address] [place], [place] 495661 PCP - General Internal Medicine 02/24/12 [facility], Charles, MACHINE SIGN WRITER.ORACLE REPORTS DEVELOPER [address] [place] [address] Referring Pain Management 05/18/23 Adjunct Writing Instructor Relationship Specialty Start Date End Date Maile Norman MD [address] [place] [address] PCP - General Internal Medicine 02/24/12 [facility], Charles, MACHINE SIGN WRITER.ORACLE REPORTS DEVELOPER [address] [place] [address] Referring Pain Management 05/18/23 Adjunct Writing Instructor Relationship Specialty Start Date End Date Maile Norman MD [address] [place] [address] PCP - General Internal Medicine 02/24/12 Presh, Charles, MACHINE SIGN WRITER.ORACLE REPORTS DEVELOPER [address] [place] [address] Referring Pain Management 05/18/23 Adjunct Writing Instructor Relationship Specialty Start Date End Date Maile Norman MD [address] [place], [place] 317281 PCP - General Internal Medicine 02/24/12 Prelucysh, Charles, MACHINE SIGN WRITER.ORACLE REPORTS DEVELOPER [address] [place] [address] Referring Pain Management 05/18/23 Adjunct Writing Instructor Relationship Specialty Start Date End Date Maile Norman MD [address] [place], [place] 085391 PCP - General Internal Medicine 02/24/12 Prebish, Charles, MACHINE SIGN WRITER.ORACLE REPORTS DEVELOPER [address] [place], [place] 444545 Referring Pain Management 05/18/23 Adjunct Writing Instructor Relationship Specialty Start Date End Date Maile Norman MD [address] [place], [place] 122751 PCP - General Internal Medicine 02/24/12 Adjunct Writing Instructor Relationship Specialty Start Date End Date Maile Norman MD [address] [place], [place] 522111 PCP - General Internal Medicine 02/24/12 Adjunct Writing Instructor Relationship Specialty Start Date End Date Maile Norman MD [address] [place], [place] 187311 PCP - General Internal Medicine 02/24/12 Prelucysh, Charles, MACHINE SIGN WRITER.ORACLE REPORTS DEVELOPER [address] [place], [place] 159055 Referring Pain Management 05/18/23 Adjunct Writing Instructor Relationship Specialty Start Date End Date Maile Norman MD [address] [place], [place] 20255691 PCP - General Internal Medicine 02/24/12 PrelucyshCharles APRN.ORACLE REPORTS DEVELOPER [address] [place] [address] Referring Pain Management 05/18/23 Adjunct Writing Instructor Relationship Specialty Start Date End Date Maile Norman MD [address] [place] [address] PCP - General Internal Medicine 02/24/12 PrelucyshCharles APRN.ORACLE REPORTS DEVELOPER [address] [place] [address] Referring Pain Management 05/18/23 Adjunct Writing Instructor Relationship Specialty Start Date End Date Maile Norman MD [address] [place] [address] PCP - General Internal Medicine 02/24/12 Charles Stanton APRN.ORACLE REPORTS DEVELOPER [address] [place] [address] Referring Pain Management 05/18/23 Adjunct Writing Instructor Relationship Specialty Start Date End Date Maile Norman MD [address] [place] [address] PCP - General Internal Medicine 02/24/12 GurindershCharles APRN.ORACLE REPORTS DEVELOPER [address] [place] [address] Referring Pain Management 05/18/23 Adjunct Writing Instructor Relationship Specialty Start Date End Date Maile Norman MD [address] [place], [place] 748971 PCP - General Internal Medicine 02/24/12 Charles Stanton, MACHINE SIGN WRITER.ORACLE REPORTS DEVELOPER [address] [place] [address] Referring Pain Management 05/18/23 Adjunct Writing Instructor Relationship Specialty Start Date End Date Maile Norman MD [address] [place], [place] 185981 PCP - General Internal Medicine 02/24/12 Charles Stanton, MACHINE SIGN WRITER.ORACLE REPORTS DEVELOPER [address] [place] [address] Referring Pain Management 05/18/23 Adjunct Writing Instructor Relationship Specialty Start Date End Date Maile Norman MD [address] [place], [place] 440271 PCP - General Internal Medicine 02/24/12 Charles Stanton, MACHINE SIGN WRITER.ORACLE REPORTS DEVELOPER [address] [place] [address] Referring Pain Management 05/18/23 Adjunct Writing Instructor Relationship Specialty Start Date End Date Maile Norman MD [address] [place] [address] PCP - General Internal Medicine 02/24/12 Charles Stanton, MACHINE SIGN WRITER.ORACLE REPORTS DEVELOPER [address] [place] [address] Referring Pain Management 05/18/23 Adjunct Writing Instructor Relationship Specialty Start Date End Date Maile Norman MD [address] [place], [place] 611551 PCP - General Internal Medicine 02/24/12 Charles Stanton APRN.ORACLE REPORTS DEVELOPER [address] [place] [address] Referring Pain Management 05/18/23 Adjunct Writing Instructor Relationship Specialty Start Date End Date Maile Norman MD [address] [place], [place] 115301 PCP - General Internal Medicine 02/24/12 Charles Stanton, MACHINE SIGN WRITER.ORACLE REPORTS DEVELOPER [address] [place] [address] Referring Pain Management 05/18/23 Adjunct Writing Instructor Relationship Specialty Start Date End Date Maile Norman MD [address] [place], [place] 421221 PCP - General Internal Medicine 02/24/12 Chrales Stanton, MACHINE SIGN WRITER.ORACLE REPORTS DEVELOPER [address] [place], [place] 812745 Referring Pain Management 05/18/23 Karen Mckee MACHINE SIGN WRITER.V GROOVE CUTTER [address] [place], [place] 817191 [employer]ger Internal Medicine 06/04/24 Sam Khan MACHINE SIGN WRITER.ORACLE REPORTS DEVELOPER [address] [place], [place] 299661 [employer]ger Internal Medicine 06/04/24 Adjunct Writing Instructor Relationship Specialty Start Date End Date Maile Norman MD [address] [place], [place] 879431 PCP - General Internal Medicine 02/24/12 Charles Stanton APRN.ORACLE REPORTS DEVELOPER [address] [place] [address] Referring Pain Management 05/18/23 Karen Mckee APRN.V GROOVE CUTTER [facility] [place], [place] [address]27[address] Palm And Back Forger Internal Medicine 06/04/24 Sam Khan APRN.ORACLE REPORTS DEVELOPER [address] [place] [address]3841 Palm And Back Forger Internal Medicine 06/04/24 Adjunct Writing Instructor Relationship Specialty Start Date End Date Maile Norman MD [address] [place] [address]3601 PCP - General Internal Medicine 02/24/12 Charles Stanton APRN.ORACLE REPORTS DEVELOPER [facility] [place] [address] Referring Pain Management 05/18/23 Karen Mckee APRN.V GROOVE CUTTER [facility] [place] [address] Palm And Back Forger Internal Medicine 06/04/24 Sam Khan APRN.ORACLE REPORTS DEVELOPER [address] [place] [address] [id number] Palm And Back Forger Internal Medicine 06/04/24 Adjunct Writing Instructor Relationship Specialty Start Date End Date Maile Norman MD [facility] [place] [address] PCP - General Internal Medicine 02/24/12 Charles Stanton APRN.ORACLE REPORTS DEVELOPER [address] [place] [address] Referring Pain Management 05/18/23 Karen Mckee APRN.V GROOVE CUTTER [address] [place], [place] 733411 [employer] Forger Internal Medicine 06/04/24 Sam Khan APRN.ORACLE REPORTS DEVELOPER [address] [place] [address] [employer] And [employer] Forger Internal Medicine 06/04/24 Adjunct Writing Instructor Relationship Specialty Start Date End Date Maile Norman MD [address] [place] [address] PCP - General Internal Medicine 02/24/12 Charles Stanton APRN.ORACLE REPORTS DEVELOPER [address] [place] [address] Referring Pain Management 05/18/23 Karen Mckee APRN.V GROOVE CUTTER [address] [place] [address] [employer]ger Internal Medicine 06/04/24 Sam Khan MACHINE SIGN WRITER.ORACLE REPORTS DEVELOPER [address] [place], [place] 162991 [employer] Back [employer]ger Internal Medicine 06/04/24 Adjunct Writing Instructor Relationship Specialty Start Date End Date Maile Norman MD [address] [place], [place] 424301 PCP - General Internal Medicine 02/24/12 Charles Stanton, MACHINE SIGN WRITER.ORACLE REPORTS DEVELOPER [address] [place], [place] 880255 Referring Pain Management 05/18/23 Karen Mckee, MACHINE SIGN WRITER.V GROOVE CUTTER [address] [place], [place] 311991 [employer] And Back [employer]ger Internal Medicine 06/04/24 Sam Khan MACHINE SIGN WRITER.ORACLE REPORTS DEVELOPER [address] [place], [place] 119571 [facility] Internal Medicine 06/04/24 Adjunct Writing Instructor Relationship Specialty Start Date End Date Maile Norman MD [address] [place], [place] 884861 PCP - General Internal Medicine 02/24/12 Chalres Stanton, MACHINE SIGN WRITER.ORACLE REPORTS DEVELOPER [address] [place], [place] 208615 Referring Pain Management 05/18/23 Karen Mckee, MACHINE SIGN WRITER.V GROOVE CUTTER [address] [place], [place] 053931 [facility] Internal Medicine 06/04/24 Sam Khan MACHINE SIGN WRITER.ORACLE REPORTS DEVELOPER [address] [place], [place] 321261 [facility] Internal Medicine 06/04/24 Adjunct Writing Instructor Relationship Specialty Start Date End Date Maile Norman MD [address] [place], [place] 292851 PCP - General Internal Medicine 02/24/12 Charles Stanton APRN.ORACLE REPORTS DEVELOPER [address] [place], [place] 464755 Referring Pain Management 05/18/23 Karen Mckee APRN.V GROOVE CUTTER [address] [place], [place] 846581 [facility] [employer] Internal Medicine 06/04/24 Sam Khan APRN.ORACLE REPORTS DEVELOPER [address] [place], [place] 713111 [facility] Internal Medicine 06/04/24 Adjunct Writing Instructor Relationship Specialty Start Date End Date Maile Norman MD [address] [place], [place] 938931 PCP - General Internal Medicine 02/24/12 Charles Stanton MACHINE SIGN WRITER.ORACLE REPORTS DEVELOPER [address] [place], [place] 236695 Referring Pain Management 05/18/23 Karen Mckee APRN.V GROOVE CUTTER [address] [place], [place] 978961 [facility] Internal Medicine 06/04/24 Sam Khan MACHINE SIGN WRITER.ORACLE REPORTS DEVELOPER [address] [place], [place] 227981 [facility] Internal Medicine 06/04/24 Adjunct Writing Instructor Relationship Specialty Start Date End Date Maile Norman MD [address] [place], [place] 470681 PCP - General Internal Medicine 02/24/12 Charles Stanton APRN.ORACLE REPORTS DEVELOPER [address] [place] [address] Referring Pain Management 05/18/23 Karen Mckee APRN.V GROOVE CUTTER [address] [place] [address] [facility] [employer] [facility] Internal Medicine 06/04/24 Sam Khan APRN.ORACLE REPORTS DEVELOPER [address] [place] [address] [facility] Internal Medicine 06/04/24 Adjunct Writing Instructor Relationship Specialty Start Date End Date Maile Norman MD [facility] [place], [place] 682101 PCP - General Internal Medicine 02/24/12 Charles Stanton APRN.ORACLE REPORTS DEVELOPER [address] [place], [place] 418555 Referring Pain Management 05/18/23 Karen Mckee APRN.V GROOVE CUTTER [facility] [place] [address] [facility] [employer] Internal Medicine 06/04/24 Sam Khan APRN.ORACLE REPORTS DEVELOPER [facility] [place], [place] 304571 [facility] [employer] [facility] Internal Medicine 06/04/24 Adjunct Writing Instructor Relationship Specialty Start Date End Date Maile oNrman MD [address] [place], [place] 896301 PCP - General Internal Medicine 02/24/12 Charles Stanton APRN.ORACLE REPORTS DEVELOPER [facility] [place] [address] Referring Pain Management 05/18/23 Karen Mckee APRN.V GROOVE CUTTER [address] [place] [address] [facility] Internal Medicine 06/04/24 Sam Khan MACHINE SIGN WRITER.ORACLE REPORTS DEVELOPER [address] [place], [place] 509931 [facility] Internal Medicine 06/04/24 Adjunct Writing Instructor Relationship Specialty Start Date End Date Maile Norman MD [address] [place], [place] 649941 PCP - General Internal Medicine 02/24/12 Charles Stanton MACHINE SIGN WRITER.ORACLE REPORTS DEVELOPER [address] [place], [place] 527795 Referring Pain Management 05/18/23 Karen Mckee MACHINE SIGN WRITER.V GROOVE CUTTER [address] [place], [place] 749811 [facility] Internal Medicine 06/04/24 Sam Khan MACHINE SIGN WRITER.ORACLE REPORTS DEVELOPER [address] [place], [place] 760231 [facility] [employer] [facility] Internal Medicine 06/04/24 Adjunct Writing Instructor Relationship Specialty Start Date End Date Maile Norman MD [address] [place], [place] [id number] PCP - General Internal Medicine 02/24/12 Charles Stanton, MACHINE SIGN WRITER.ORACLE REPORTS DEVELOPER [address] [place], [place] [id number] Referring Pain Management 05/18/23 Karen Mckee APRN.V GROOVE CUTTER [address] [place], [place] 746181 [facility] Internal Medicine 06/04/24 Sam Khan MACHINE SIGN WRITER.ORACLE REPORTS DEVELOPER [address] [place], [place] 523291 [facility] Internal Medicine 06/04/24 Adjunct Writing Instructor Relationship Specialty Start Date End Date Maile Norman MD [address] [place], [place] 774551 PCP - General Internal Medicine 02/24/12 Charles Stanton APRN.ORACLE REPORTS DEVELOPER [address] [place], [place] 267145 Referring Pain Management 05/18/23 Karen Mckee MACHINE SIGN WRITER.V GROOVE CUTTER [address] [place], [place] 37383691 [facility] Internal Medicine 06/04/24 Sam Khan MACHINE SIGN WRITER.ORACLE REPORTS DEVELOPER [address] [place], [place] 361291 [facility] Internal Medicine 06/04/24 Adjunct Writing Instructor Relationship Specialty Start Date End Date Maile Norman MD [address] [place], [place] [id number] PCP - General Internal Medicine 02/24/12 Charles Stanton APRN.ORACLE REPORTS DEVELOPER [address] [place], [place] 609095 Referring Pain Management 05/18/23 Karen Mckee APRN.V GROOVE CUTTER [address] [place], [place] 794791 [facility] Internal Medicine 06/04/24 Sam Khan APRN.ORACLE REPORTS DEVELOPER [address] [place], [place] 912601 [facility] Internal Medicine 06/04/24 Adjunct Writing Instructor Relationship Specialty Start Date End Date Maile Norman MD [address] [place], [place] 123121 PCP - General Internal Medicine 02/24/12 Charles Stanton APRN.ORACLE REPORTS DEVELOPER [address] [place], [place] 428755 Referring Pain Management 05/18/23 Karen Mckee APRN.V GROOVE CUTTER [address] [place], [place] 038411 [facility] Internal Medicine 06/04/24 Sam Khan APRN.ORACLE REPORTS DEVELOPER [address] [place], [place] 260661 [facility] Internal Medicine 06/04/24 Adjunct Writing Instructor Relationship Specialty Start Date End Date Maile Norman MD [address] [place], [place] 352561 PCP - General Internal Medicine 02/24/12 Charles Stanton APRN.ORACLE REPORTS DEVELOPER [address] [place] [address] Referring Pain Management 05/18/23 Karen Mckee APRN.V GROOVE CUTTER [address] [facility] [place] [address] [employer] Internal Medicine 06/04/24 Sam Khan APRN.ORACLE REPORTS DEVELOPER [address] [facility] [place] [place] [address] [facility] Internal Medicine 06/04/24 Adjunct Writing Instructor Relationship Specialty Start Date End Date Maile Norman MD [address] [facility] [place] [place] [address] PCP - General Internal Medicine 02/24/12 Charles Stanton APRN.ORACLE REPORTS DEVELOPER [address] [place], [place] 230495 Referring Pain Management 05/18/23 Karen Mckee APRN.V GROOVE CUTTER [address] [facility] [place] [place] [address] [facility] [employer] [facility] Internal Medicine 06/04/24 Sam Khan APRN.ORACLE REPORTS DEVELOPER [address] [facility] [place] [address] [facility] Internal Medicine 09/18/24 Adjunct Writing Instructor Relationship Specialty Start Date End Date Maile Norman MD [address] [place] [address] PCP - General Internal Medicine 02/24/12 Charles Stanton APRN.ORACLE REPORTS DEVELOPER [address] [place] [address] Referring Pain Management 05/18/23 Karen Mckee APRN.V GROOVE CUTTER [address] [place] [address] [facility] [employer] [facility] Internal Medicine 06/04/24 Sam Khan APRN.ORACLE REPORTS DEVELOPER [address] [place] [address] [facility] Internal Medicine 09/18/24 Adjunct Writing Instructor Relationship Specialty Start Date End Date Maile Norman MD [address] [place] [address] PCP - General Internal Medicine 02/24/12 Charles Stanton APRN.ORACLE REPORTS DEVELOPER [address] [place] [address] Referring Pain Management 05/18/23 Karen Mckee APRN.V GROOVE CUTTER [address] [place] [address] [facility] [employer] [facility] Internal Medicine 06/04/24 Sam Khan APRN.ORACLE REPORTS DEVELOPER [address] [place] [address] [facility] [employer] [facility] Internal Medicine 09/18/24 Adjunct Writing Instructor Relationship Specialty Start Date End Date Maile Norman MD [address] [place] [address] PCP - General Internal Medicine 02/24/12 Charles Stanton APRN.ORACLE REPORTS DEVELOPER [address] [place] [address] Referring Pain Management 05/18/23 Karen Mckee APRN.V GROOVE CUTTER [address] [place], [place] 347931 [employer] Internal Medicine 06/04/24 Sam Khan APRN.ORACLE REPORTS DEVELOPER [address] [place], [place] 739001 [facility] [employer] [facility] Internal Medicine 09/18/24 Adjunct Writing Instructor Relationship Specialty Start Date End Date Maile Norman MD [address] [place], [place] 249851 PCP - General Internal Medicine 02/24/12 Charles Stanton APRN.ORACLE REPORTS DEVELOPER [address] [place], [place] 790985 Referring Pain Management 05/18/23 Karen Mckee APRN.V GROOVE CUTTER [address] [place] [address] [facility] [employer] [facility] Internal Medicine 06/04/24 Sam Khan APRN.ORACLE REPORTS DEVELOPER [address] [place] [address] [facility] Internal Medicine 09/18/24 Adjunct Writing Instructor Relationship Specialty Start Date End Date Maile Norman MD [address] [place] [address] PCP - General Internal Medicine 02/24/12 Charles Stanton MACHINE SIGN WRITER.ORACLE REPORTS DEVELOPER [address] [place] [address] Referring Pain Management 05/18/23 Karen Mckee APRN.V GROOVE CUTTER [address] [place], [place] 818771 [employer] Internal Medicine 06/04/24 Sam Khan APRN.ORACLE REPORTS DEVELOPER [address] [place], [place] 376251 [facility] Internal Medicine 09/18/24 Adjunct Writing Instructor Relationship Specialty Start Date End Date Maile Norman MD [address] [place], [place] 441831 PCP - General Internal Medicine 02/24/12 Charles Stanton APRN.ORACLE REPORTS DEVELOPER [address] [place], [place] [id number] Referring Pain Management 05/18/23 Karen Mckee APRN.V GROOVE CUTTER [address] [place] [address] [employer] Internal Medicine 06/04/24 Sam Khan APRN.ORACLE REPORTS DEVELOPER [address] [place], [place] 205261 [facility] Internal Medicine 09/18/24 Adjunct Writing Instructor Relationship Specialty Start Date End Date Maile Norman MD [address] [place], [place] 549691 PCP - General Internal Medicine 02/24/12 Charles Stanton APRN.ORACLE REPORTS DEVELOPER [address] [place], [place] 286915 Referring Pain Management 05/18/23 Karen Mckee APRN.V GROOVE CUTTER [address] [place] [address] [employer] Internal Medicine 06/04/24 Sam Khan APRN.ORACLE REPORTS DEVELOPER [address] [facility] [place] [address] [employer] Internal Medicine 09/18/24 Adjunct Writing Instructor Relationship Specialty Start Date End Date Maile Norman MD [address] [place], [place] 215571 PCP - General Internal Medicine 02/24/12 Charles Stanton MACHINE SIGN WRITER.ORACLE REPORTS DEVELOPER [address] [place], [place] [id number] Referring Pain Management 05/18/23 Karen Mckee MACHINE SIGN WRITER.V GROOVE CUTTER [address] [place] [address] [employer] Internal Medicine 06/04/24 Sam Khan APRN.ORACLE REPORTS DEVELOPER [address] [place] [address] [employer] Internal Medicine 09/18/24 Adjunct Writing Instructor Relationship Specialty Start Date End Date Maile Norman MD [address] [place] [address] PCP - General Internal Medicine 02/24/12 Charles Stanton, MACHINE SIGN WRITER.ORACLE REPORTS DEVELOPER [address] [place], [place] 477625 Referring Pain Management 05/18/23 Karen Mckee APRN.V GROOVE CUTTER [address] [place] [address] [employer] Internal Medicine 06/04/24 Sam Khan APRN.ORACLE REPORTS DEVELOPER [address] [place] [address] [employer] [facility] Internal Medicine 09/18/24 Adjunct Writing Instructor Relationship Specialty Start Date End Date Maile Norman MD [address] [place], [place] 428991 PCP - General Internal Medicine 02/24/12 Charles Stanton APRN.ORACLE REPORTS DEVELOPER [address] [place] [address] Referring Pain Management 05/18/23 Kraen Mckee APRN.V GROOVE CUTTER [address] [place], [place] 602431 [employer] Internal Medicine 06/04/24 Sam Khan APRN.ORACLE REPORTS DEVELOPER [address] [place], [place] 408751 [facility] [employer] [facility] Internal Medicine 09/18/24 Adjunct Writing Instructor Relationship Specialty Start Date End Date Maile Norman MD [address] [place], [place] 941651 PCP - General Internal Medicine 02/24/12 Charles Stanton APRN.ORACLE REPORTS DEVELOPER [address] [place] [address] Referring Pain Management 05/18/23 Karen Mckee APRN.V GROOVE CUTTER [address] [place] [address] [employer] Internal Medicine 06/04/24 Sam Khan APRN.ORACLE REPORTS DEVELOPER [address] [place], [place] 015181 [facility] Internal Medicine 09/18/24 Adjunct Writing Instructor Relationship Specialty Start Date End Date Maile Norman MD [address] [place] [address] PCP - General Internal Medicine 02/24/12 Charles Stanton APRN.ORACLE REPORTS DEVELOPER [address] [place] [address] Referring Pain Management 05/18/23 Karen Mckee APRN.V GROOVE CUTTER [address] [place], [place] 144761 [employer] Internal Medicine 06/04/24 Sam Khan APRN.ORACLE REPORTS DEVELOPER [address] [place], [place] 721551 [facility] [employer] [facility] Internal Medicine 09/18/24 Adjunct Writing Instructor Relationship Specialty Start Date End Date Maile Norman MD [address] [place], [place] 183731 PCP - General Internal Medicine 02/24/12 Charles Stanton APRN.ORACLE REPORTS DEVELOPER [address] [place] [address] Referring Pain Management 05/18/23 Karen Mckee MACHINE SIGN WRITER.V GROOVE CUTTER [address] [place], [place] 846661 [employer] Internal Medicine 06/04/24 Sam Khan APRN.ORACLE REPORTS DEVELOPER [address] [place], [place] 037941 [employer] [facility] Internal Medicine 09/18/24 Adjunct Writing Instructor Relationship Specialty Start Date End Date Maile Norman MD [address] [place], [place] 458581 PCP - General Internal Medicine 02/24/12 Charles Stanton, MACHINE SIGN WRITER.ORACLE REPORTS DEVELOPER [address] [place] [address] Referring Pain Management 05/18/23 Karen Mckee MACHINE SIGN WRITER.V GROOVE CUTTER [address] [place], [place] 304351 [employer] Internal Medicine 06/04/24 Sam Khan MACHINE SIGN WRITER.ORACLE REPORTS DEVELOPER [address] [place] [address] [employer] Internal Medicine 09/18/24 Adjunct Writing Instructor Relationship Specialty Start Date End Date Maile Norman MD [address] [place], [place] 588141 PCP - General Internal Medicine 02/24/12 Charles Stanton, MACHINE SIGN WRITER.ORACLE REPORTS DEVELOPER [address] [place] [address] Referring Pain Management 05/18/23 Karen Mckee, MACHINE SIGN WRITER.V GROOVE CUTTER [address] [place] [address] [employer] Internal Medicine 06/04/24 Sam Khan MACHINE SIGN WRITER.ORACLE REPORTS DEVELOPER [address] [place], [place] 282761 [employer] [facility] Internal Medicine 09/18/24 Adjunct Writing Instructor Relationship Specialty Start Date End Date Maile Norman MD [address] [place], [place] 788011 PCP - General Internal Medicine 02/24/12 Charles Stanton APRN.ORACLE REPORTS DEVELOPER [address] [place] [address] Referring Pain Management 05/18/23 Karen Mckee, MACHINE SIGN WRITER.V GROOVE CUTTER [address] [place], [place] 369361 [employer] Internal Medicine 06/04/24 Sam Khan MACHINE SIGN WRITER.ORACLE REPORTS DEVELOPER [address] [place] [address] [employer] Internal Medicine 09/18/24 Adjunct Writing Instructor Relationship Specialty Start Date End Date Maile Norman MD [address] [place], [place] 579641 PCP - General Internal Medicine 02/24/12 Charles Stanton, MACHINE SIGN WRITER.ORACLE REPORTS DEVELOPER [address] [place] [address] Referring Pain Management 05/18/23 Karen Mckee, MACHINE SIGN WRITER.V GROOVE CUTTER [address] [place] [address] [employer] Internal Medicine 06/04/24 Sam Khan MACHINE SIGN WRITER.ORACLE REPORTS DEVELOPER [address] [place] [address] [employer] Internal Medicine 09/18/24 Adjunct Writing Instructor Relationship Specialty Start Date End Date Maile Norman MD [address] [facility] [place] [address] PCP - General Internal Medicine 02/24/12 Charles Stanton APRN.ORACLE REPORTS DEVELOPER [address] [place] [address] Referring Pain Management 05/18/23 Sam Khan APRN.ORACLE REPORTS DEVELOPER [address] [place] [address] [employer] Internal Medicine 09/18/24 Karen Mckee APRN.V GROOVE CUTTER [address] [place] [address] [employer] Internal Medicine 11/14/24 Adjunct Writing Instructor Relationship Specialty Start Date End Date Maile Norman MD [address] [place] [address] PCP - General Internal Medicine 02/24/12 Charles Stanton APRN.ORACLE REPORTS DEVELOPER [address] [place] [address] Referring Pain Management 05/18/23 Sam Khan APRN.ORACLE REPORTS DEVELOPER [address] [place] [address] [employer] Internal Medicine 09/18/24 Karen Mckee APRN.V GROOVE CUTTER [address] [facility] [place] [place] [address] [employer] Internal Medicine 11/14/24 Adjunct Writing Instructor Relationship Specialty Start Date End Date Maile Norman MD [address] [place] [address] PCP - General Internal Medicine 02/24/12 Charles Stanton APRN.ORACLE REPORTS DEVELOPER [address] [place] [address] Referring Pain Management 05/18/23 Sam Khan APRN.ORACLE REPORTS DEVELOPER [address] [place] [address] [employer] Internal Medicine 09/18/24 Karen Mckee APRN.V GROOVE CUTTER [address] [place] [address] [employer] [facility] Internal Medicine 11/14/24 Adjunct Writing Instructor Relationship Specialty Start Date End Date Maile Norman MD [address] [place] [address] PCP - General Internal Medicine 02/24/12 Charles Stanton APRN.ORACLE REPORTS DEVELOPER [address] [place] [address] Referring Pain Management 05/18/23 Sam Khan MACHINE SIGN WRITER.ORACLE REPORTS DEVELOPER [address] [place] [address] [employer] Internal Medicine 09/18/24 Karen Mckee MACHINE SIGN WRITER.V GROOVE CUTTER [address] [place], [place] 194831 [facility] [employer] [facility] Internal Medicine 11/14/24 Adjunct Writing Instructor Relationship Specialty Start Date End Date Maile Norman MD [address] [place], [place] 803361 PCP - General Internal Medicine 02/24/12 Charles Stanton APRN.ORACLE REPORTS DEVELOPER [address] [place] [address] Referring Pain Management 05/18/23 Sam Khan APRN.ORACLE REPORTS DEVELOPER [address] [place], [place] 220041 [employer] Internal Medicine 09/18/24 Karen Mckee APRN.V GROOVE CUTTER [address] [place], [place] 819501 [facility] Internal Medicine 11/14/24 Adjunct Writing Instructor Relationship Specialty Start Date End Date Maile Norman MD [address] [place] [address] PCP - General Internal Medicine 02/24/12 Charles Stanton APRN.ORACLE REPORTS DEVELOPER [address] [place] [address] Referring Pain Management 05/18/23 Sam Khan APRN.ORACLE REPORTS DEVELOPER [address] [place] [address] [employer] Internal Medicine 09/18/24 Karen Mckee MACHINE SIGN WRITER.V GROOVE CUTTER [address] [place], [place] 470791 [facility] [employer] [facility] Internal Medicine 11/14/24 Adjunct Writing Instructor Relationship Specialty Start Date End Date Maile Norman MD [address] [place], [place] 705011 PCP - General Internal Medicine 02/24/12 Charles Stanton APRN.ORACLE REPORTS DEVELOPER [address] [place] [address] Referring Pain Management 05/18/23 Sam Khan APRN.ORACLE REPORTS DEVELOPER [address] [place], [place] 331591 [employer] Internal Medicine 09/18/24 Karen Mckee APRN.V GROOVE CUTTER [address] [place] [address] [employer] Internal Medicine 11/14/24 Adjunct Writing Instructor Relationship Specialty Start Date End Date Maile Norman MD [address] [place] [address] PCP - General Internal Medicine 02/24/12 Charles Stanton APRN.ORACLE REPORTS DEVELOPER [address] [place] [address] Referring Pain Management 05/18/23 Sam Khan APRN.ORACLE REPORTS DEVELOPER [address] [place] [address] [employer] Internal Medicine 09/18/24 Karen Mckee MACHINE SIGN WRITER.V GROOVE CUTTER [address] [facility] [place] [address] [employer] Internal Medicine 11/14/24 Adjunct Writing Instructor Relationship Specialty Start Date End Date Maile Norman MD [address] [place] [address] PCP - General Internal Medicine 02/24/12 Charles Stanton APRN.ORACLE REPORTS DEVELOPER [address] [place] [address] Referring Pain Management 05/18/23 Sam Khan APRN.ORACLE REPORTS DEVELOPER [address] [facility] [place] [place] [address] [employer] Internal Medicine 09/18/24 Karen Mckee MACHINE SIGN WRITER.V GROOVE CUTTER [address] [facility] [place] [address] [employer] Internal Medicine 11/14/24 Adjunct Writing Instructor Relationship Specialty Start Date End Date Maile Norman MD [address] [place] [address] PCP - General Internal Medicine 02/24/12 Charles Stanton, MACHINE SIGN WRITER.ORACLE REPORTS DEVELOPER [address] [place] [address] Referring Pain Management 05/18/23 Sam Khan MACHINE SIGN WRITER.ORACLE REPORTS DEVELOPER [address] [facility] [place] [address] [employer] Internal Medicine 09/18/24 Karen Mckee MACHINE SIGN WRITER.V GROOVE CUTTER [address] [facility] [place] [place] [address] [employer] Internal Medicine 11/14/24 Adjunct Writing Instructor Relationship Specialty Start Date End Date Maile Norman MD [address] [facility] [place] [address] PCP - General Internal Medicine 02/24/12 Charles Stanton, MACHINE SIGN WRITER.ORACLE REPORTS DEVELOPER [address] [place] [address] Referring Pain Management 05/18/23 Sam Khan APRN.ORACLE REPORTS DEVELOPER [address] [place] [address] [employer] Internal Medicine 09/18/24 Karen Mckee APRN.V GROOVE CUTTER [address] [place] [address] [employer] Internal Medicine 11/14/24 Adjunct Writing Instructor Relationship Specialty Start Date End Date Maile Norman MD [address] [place], [place] 881611 PCP - General Internal Medicine 02/24/12 Charles Stanton APRN.ORACLE REPORTS DEVELOPER [address] [place] [address] Referring Pain Management 05/18/23 Sam Khan APRN.ORACLE REPORTS DEVELOPER [address] [place] [address] [employer] Internal Medicine 09/18/24 Karen Mckee APRN.V GROOVE CUTTER [address] [place] [address] [employer] Internal Medicine 11/14/24 Adjunct Writing Instructor Relationship Specialty Start Date End Date Maile Norman MD [address] [place], [place] 476301 PCP - General Internal Medicine 02/24/12 Charles Stanton APRN.ORACLE REPORTS DEVELOPER [address] [place] [address] Referring Pain Management 05/18/23 Sam Khan APRN.ORACLE REPORTS DEVELOPER [address] [place] [address] [employer] Internal Medicine 09/18/24 Karen Mckee APRN.V GROOVE CUTTER [address] [place] [address] [employer] Internal Medicine 11/14/24 Adjunct Writing Instructor Relationship Specialty Start Date End Date Maile Norman MD [address] [place], [place] 368681 PCP - General Internal Medicine 02/24/12 Charles Stanton APRN.ORACLE REPORTS DEVELOPER [address] [place] [address] Referring Pain Management 05/18/23 Sam Khan MACHINE SIGN WRITER.ORACLE REPORTS DEVELOPER [address] [place], [place] 365691 [employer] Internal Medicine 09/18/24 Karen Mckee, MACHINE SIGN WRITER.V GROOVE CUTTER [address] [place], [place] 075001 [employer] Internal Medicine 11/14/24 Adjunct Writing Instructor Relationship Specialty Start Date End Date Maile Norman MD [address] [place], [place] 476921 PCP - General Internal Medicine 02/24/12 Charles Stanton APRN.ORACLE REPORTS DEVELOPER [address] [place] [address] Referring Pain Management 05/18/23 Sam Khan APRN.ORACLE REPORTS DEVELOPER [address] [place], [place] 157521 [employer] Internal Medicine 09/18/24 Karen Mckee APRN.V GROOVE CUTTER [address] [place], [place] 877431 [employer] Internal Medicine 11/14/24 Adjunct Writing Instructor Relationship Specialty Start Date End Date Maile Norman MD [address] [place], [place] 605941 PCP - General Internal Medicine 02/24/12 Charles Stanton APRN.ORACLE REPORTS DEVELOPER [address] [place], [place] 730385 Referring Pain Management 05/18/23 Sam Khan APRN.ORACLE REPORTS DEVELOPER [address] [place] [address] [employer] Internal Medicine 09/18/24 Karen Mckee APRN.V GROOVE CUTTER [address] [place], [place] 393801 [employer] Internal Medicine 11/14/24 Adjunct Writing Instructor Relationship Specialty Start Date End Date Maile Norman MD [address] [place], [place] 362661 PCP - General Internal Medicine 02/24/12 Charles Stanton APRN.ORACLE REPORTS DEVELOPER [address] [place] [address] Referring Pain Management 05/18/23 Sam Khan APRN.ORACLE REPORTS DEVELOPER [address] [place] [address] [employer] Internal Medicine 09/18/24 Karen Mckee APRN.V GROOVE CUTTER [address] [place] [address] [employer] Internal Medicine 11/14/24 Adjunct Writing Instructor Relationship Specialty Start Date End Date Maile Norman MD [address] [place], [place] 851581 PCP - General Internal Medicine 02/24/12 Charles Stanton APRN.ORACLE REPORTS DEVELOPER [address] [place], [place] 106425 Referring Pain Management 05/18/23 Sam Khan APRN.ORACLE REPORTS DEVELOPER [address] [place] [address] [employer] Internal Medicine 09/18/24 Karen Mckee APRN.V GROOVE CUTTER [address] [place] [address] [employer] Internal Medicine 11/14/24 Adjunct Writing Instructor Relationship Specialty Start Date End Date Maile Norman MD [address], [place] [id number] PCP - General Internal Medicine 02/24/12 Charles Stanton APRN.[employer]ELOPER [address] [place] [address] Referring Pain Management 05/18/23 Sam Khan APRN.[employer] [address] [place] [address] [employer] Internal Medicine 09/18/24 Karen MckeeRIGOBERTOWALKER [address] [place] [address] [employer] Internal Medicine 11/14/24 Source Comments (unrecognize d [...] BE BASED ON THE PRIMARY CLINICAL RECORDS. [facility] [employer] [facility]. provides no warranty or guarantee of the accuracy or completeness of information in this document.
[2025-06-20] MEDS: 0.9% Normal Saline (1000mL) 1,000 ML 1000 ML IV (21:48)
[2025-06-20 22:03] LABS: Hematocrit 38.4 % (37-47); Hemoglobin 13.5 g/dL (12.0-15.0); Immature Granulocytes Count 0.040 X10^3/uL (0.0-0.0); Mean Corp Hgb Conc 35.2 g/dL (32-36); Mean Corpuscular Volume 89.5 fL (81-99); Mean Platelet Vol. 9.6 fl (6.2-12.0); NRBC Flagged by Analyzer 0 % (0-5); Platelet Count 249 K/mm3 (150-450); RBC Distribution Width CV 11.9 % (11.6-14.6); RBC Distribution Width SD 38.8 fl (35.1-43.9); Red Blood Count 4.29 M/mm3 (4.2-5.4); White Blood Count 9.5 K/mm3 (4.4-11.0)
[2025-06-20 22:27] LABS: Anion Gap 10 (7-18); BUN 8 mg/dL (4-19); BUN/Creat Ratio 11.7 RATIO (10-20); Calcium,Total 8.9 mg/dL (7.6-11.0); Carbon Dioxide 24.9 mmol/L (20.0-29.0); Chloride 102 mmol/L (96-106); Estimated Creatinine Clearance 95.99 ml/min (50-250); Glucose 101 mg/dL (70-99); Potassium 3.7 mmol/L (3.5-5.1)
--- NOTE | 2025-06-20 22:30 | EDS_ITS ---
HPI History of Present Illness Chief Complaint: Abd Pain Detail of Chief Complaint: Nausea and vomiting today Informant: patient Onset/Context/Timing Onset: Today Context: Gradual Onset Timing: Continuous Current Severity: Mild Maximum Severity: Mild Narrative Narrative: 45-year-old female history of substance abuse. States that she abuses Xanax. She has been out of it for a week. Started having nausea and vomiting today. No diarrhea. No fever. States he did use Xanax about 2 days ago. Believes she is going through withdrawal. Prior similar symptoms: No Recent Illness/Hospitalization: No PFSH PFSH Medical History Shortness of breath on exertion Adenomyosis Post endometrial ablation syndrome Opiate dependence Desire for detoxification Substance abuse Congestive heart failure (CHF) Marijuana use Wears partial dentures Hepatitis Smoker History of echocardiogram History of stress test Cardiology follow-up encounter History of CHF (congestive heart failure) Esophageal tear Anxiety Home Medications ?Medication ?Instructions ?Recorded ?Last Taken ?Type trazodone 100 mg tablet 100 mg PO QHS sleep 01/03/17 03/14/25 History inhalational spacing device 10/09/23 Unknown History (BreatheRite MDI Spacer) albuterol sulfate 90 mcg/actuation 2 puff inhalation Q 4H PRN PRN 12/06/24 Unknown History aerosol inhaler wheezing ondansetron 4 mg disintegrating 4 mg PO Q6H PRN nausea and 06/20/25 Unknown Rx tablet vomiting #10 tabs Allergy/AdvReac Type Severity Reaction Status Date / Time escitalopram (From Lexapro) Allergy Other Verified 06/20/25 21:11 lamotrigine (From Lamictal) Allergy Hives Verified 06/20/25 21:11 nitrofurantoin (From Allergy Unknown Verified 06/20/25 21:11 Macrobid) nitrofurantoin Allergy Unknown Verified 06/20/25 21:11 macrocrystalline (From Macrobid) codeine AdvReac Nausea Verified 06/20/25 21:11 Family History Mother Anxiety Hypertension High cholesterol Diabetes Depression Father Hypertension Surgical History Hx of hysterectomy with oophorectomy Hx of excision of mass History of tubal ligation History of lumpectomy of right breast History of repair of rotator cuff Hx of surgical procedure Hx of removal of ovary History of tonsillectomy and adenoidectomy Social History household members: family housing: house Smoking Status: Current every day smoker tobacco type: cigarettes and e-cigaret mica substance use type: marijuana additional social history: pt does not vape, does not take aspirin, pt does report using marijuana daily,does uses edibles on occassion, does use ibuprofen as needed. ROS ROS ED ROS Narrative Nausea and vomiting. Anxiety. Shaking. Constitutional Constitutional ED: Denies chills or fever(s) Eyes Eyes: Denies blurry vision ENT ENT ED: Denies ear pain Cardiovascular Cardiovascular: Denies chest pain Respiratory/Chest Respiratory/Chest: Denies cough or dyspnea Gastrointestinal Gastrointestinal: Reports nausea and vomiting; Denies abdominal pain, constipation, diarrhea or melena Genitourinary Genitourinary ED: Denies dysuria or hematuria Musculoskeletal Musculoskeletal: Denies arthralgias Integumentary Denies abscess Neurologic Neurologic: Denies headache(s) Psychiatric Psychiatric: Denies anxiety or depression Endocrine Endocrinology: Denies cold intolerance or heat intolerance Hematologic/Lymphatic Hematologic/Lymphatic: Reports none Allergic/Immunologic Allergic/Immunologic ED: Denies mouth swelling, tongue swelling or urticaria EXAM Physical Exam Narrative Exam Narrative: 45-year-old female sitting upright in bed vital signs are stable afebrile. Does not look septic toxic. No acute distress. Anxious. H EENT exam pupils round react light. Moist mucous membranes. Neck nontender no JVD no lymphadenopathy. Back nontender. Lungs clear to auscultation bilaterally. Heart regular rhythm rate about 70 no murmur. Chest wall and ribs are nontender. Abdomen soft, nontender, nondistended, normal bowel sounds without peritoneal signs. Moving all 4 extremities. Nontender no edema. Skin no rashes. Neurologically awake alert. Answer questions following commands. Benign exam. Const Vital Signs: 06/20/25 21:11 Temperature 97.7 F L Temperature Source Oral Pulse Rate 69 Respiratory Rate 16 Blood Pressure 136/86 H Blood Pressure Mean 102 Pulse Ox 100 Oxygen Delivery Method Room Air MDM MDM MDM Narrative Medical decision making narrative: 45-year-old female nausea and vomiting history of Xanax abuse. Should be treated with IV fluids, screening labs and Zofran and reassess. I have already discussed with her about inpatient detox at this time she is initially preferring to go home. Will rediscuss that prior to disposition. Repeat exam at around 10:35 PM patient doing well. States she feels much better. Drinking ice water. She is comfortable being discharged to home. Repeat exam is benign. Abdomen is nontender. She be discharged home with Zofran. She knows if she feels worse to return. She does not want inpatient admission at this time. Patient and spouse wanted me to specifically dictate in her chart she does not want any further Xanax prescriptions from her primary care physician or any other physicians. History & Record Review Discussion w/independent historian: Patient Additional record(s) reviewed:: Prior outpatient record, Prior ED visit and Prior labs Lab Data Attestation: I reviewed the patient's lab results. Lab results narrative: CBC unremarkable. White count at 9. H&H 13 and 38. Platelets 249. Electrolytes unremarkable gap 10. BUN and creatinine 8 and 0.6. Glucose 101. Labs: Laboratory Results - last 24 hr 06/20/25 21:50 WBC 9.5 RBC 4.29 Hgb 13.5 Hct 38.4 MCV 89.5 MCH 31.5 MCHC 35.2 RDW Std Deviation 38.8 RDW Coeff of Denys 11.9 Plt Count 249 MPV 9.6 Immature Gran % (Auto) 0.400 Neut % (Auto) 78.5 H Lymph % (Auto) 16.0 L [place] % (Auto) 4.3 Eos % (Auto) 0.2 Baso % (Auto) 0.6 Absolute Neuts (auto) 7.4 Absolute Lymphs (auto) 1.51 Nucleated RBC % 0 Sodium 137 Potassium 3.7 Chloride 102 Carbon Dioxide 24.9 Anion Gap 10 BUN 8 Creatinine 0.68 L Estim Creat Clear Calc 95.99 Est GFR (MDRD) Non-Af 111 BUN/Creatinine Ratio 11.7 Glucose 101 H Calcium 8.9 Discharge Plan Triage Chief Complaint: Abd Pain ED Provider: Pablo Jarquin Dx/Rx/DC Orders Clinical Impression: Nausea & vomiting, History of substance abuse Instructions: Substance Use Disorder Tx, ED Vomiting (Adult) Prescriptions: New ondansetron 4 mg tablet,disintegrating 4 mg PO Q6H PRN (Reason: nausea and vomiting) Qty: 10 0RF No Action trazodone 100 MG tablet 100 mg PO QHS (DME) BreatheRite MDI Spacer Spacer MISCELLANEOUS X1 albuterol sulfate 90 mcg/actuation HFA aerosol inhaler 2 puff inhalation Q4H PRN PRN (Reason: wheezing) Patient Comments: has not used since she had pneumonia in summer 2023 Primary Care Provider: Tamika Mario Referrals: Tamika Mario MD [Primary Care Provider, Internal Medicine] - As Needed [facility] [Non-Staff, None] - As soon as possible Activity Restrictions/Additional Instructions: Plenty of fluids and rest. Follow-up with 180 discussed substance abuse and detox. Return if feeling worse or want inpatient detox. Zofran as needed for nausea. Motrin and Tylenol for pain. Print Language: Ukrainian Disposition Disposition: Home, Self Care
[2025-06-20 22:42] VITALS: BP 142/70; PULSE 64; RESP 16; TEMP 36.6; O2SAT 98
== END 2025-06-20 22:56 | disposition home or self-care (01) ==
PROVIDERS: Emergency Provider Emergency Medicine; PCP Internal Medicine; Visit Provider Emergency Medicine
DX: R11.2 Nausea with vomiting, unspecified (principal); F13.10 Sedative, hypnotic or anxiolytic abuse, uncomplicated; F17.210 Nicotine dependence, cigarettes, uncomplicated; F17.290 Nicotine dependence, other tobacco product, uncomplicated
CPT/HCPCS: 80048; 85025; 96361; 96374; 99285; A4216; J2405